=== PATIENT | male | born 1960 | race Hispanic/Latino ===

== ENCOUNTER 2017-11-29 09:36 | Inpatient (IN) | payer MEDICAID, OTHER ==
[2017-11-29] MEDS ORDERED: Vancomycin 1gm in NS 250ml 1 GM/250 ML BAG IVPB STA (10:27)
[2017-11-29] MEDS ORDERED: Piperacillin/Tazobact 3.375 gm 100 ML IVPB STA (10:27)
[2017-11-29] MEDS ORDERED: Sodium Chloride 0.9% 1,000 ML IV STA ×2 (10:28→12:15)
--- NOTE | 2017-11-29 10:31 | ED PDOC ---
Arrival/HPI - General Time Seen by Provider: 11/29/17 10:11 Historian: EMS - History of Present Illness Narrative History of Present Illness (Text): 11/29/17 10:31 57 year old male, unobtainable past medical history, presents to the Emergency department via EMS for altered mental status prior to arrival. Patient was last seen by brother a week ago. Patient appeared to be altered mental status and covered in feces upon arrival to the Emergency department. Patient appears to be cachectic and is a poor historian. History limited due to patient's altered mental status. Time/Duration: Prior to Arrival Symptom Onset: Gradual Symptom Course: Unchanged Activities at Onset: Light Context: Home Past Medical History - Provider Review Nursing Documentation Reviewed: Yes - Infectious Disease Hx of Infectious Diseases: None - Tetanus Immunization Tetanus Immunization: Unknown - Past Medical History Past Medical History: Unable to Obtain - Psychiatric Hx Depression: No Hx Emotional Abuse: No Hx Physical Abuse: No Hx Substance Use: (unable to obtain) - Past Surgical History Past Surgical History: Unable to Obtain - Suicidal Assessment Feels Threatened In Home Enviroment: No Family/Social History - Physician Review Nursing Documentation Reviewed: Yes Family/Social History: Unknown Family HX Hx Substance Use: (unable to obtain) Hx Substance Use Treatment: (unable to obtain) Allergies/Home Meds Allergies/Adverse Reactions: Allergies Unobtainable Allergy (Verified 11/29/17 19:43) Home Medications: Home Meds Medication Instructions Recorded Confirmed Unobtainable 03/12/13 11/29/17 Review of Systems - Physician Review All systems were reviewed & negative as marked: Yes - Review of Systems Systems not reviewed;Unavailable: Altered Mental Status Eyes: Normal ENT: Normal Respiratory: Normal. absent: SOB Musculoskeletal: Other (cachectic) Neurological: Other (altered mental status) Psychiatric: Other (Confused) Physical Exam Vital Signs Reviewed: Yes Vital Signs Temp Pulse Resp BP Pulse Ox 11/29/17 11:59 126 H 18 154/96 H 96 11/29/17 10:54 99.1 F 131 H 20 164/106 H 95 Temperature: Afebrile Blood Pressure: Hypertensive Pulse: Tachycardic Respiratory Rate: Normal Appearance: Positive for: Unkept (covered in feces ), Cachectic Pain Distress: Mild Mental Status: Positive for: other (Altered mental status) - Systems Exam Head: Present: Atraumatic, Normocephalic Pupils: Present: PERRL Extroacular Muscles: Present: EOMI Conjunctiva: Present: Normal Mouth: Present: Moist Mucous Membranes Neck: Present: Normal Range of Motion Respiratory/Chest: Present: Clear to Auscultation, Good Air Exchange. No: Respiratory Distress, Accessory Muscle Use Cardiovascular: Present: Regular Rate and Rhythm, Normal S1, S2. No: Murmurs Abdomen: Present: Normal Bowel Sounds. No: Tenderness, Distention, Peritoneal Signs Back: Present: Normal Inspection Upper Extremity: Present: Normal Inspection. No: Cyanosis, Edema Lower Extremity: Present: Normal Inspection. No: Edema Neurological: Present: GCS=15, CN II-XII Intact, Speech Normal Skin: Present: Warm, Dry, Other (marked erythema to right side hip with purulent discharge). No: Rashes Psychiatric: Present: Alert (but altered mental status) Medical Decision Making ED Course and Treatment: 11/29/17 10:41 Impression: 57 year old male presents to the Emergency department for AMS. Plan: cachectic -- VBG -- CT of Head -- EKG -- Labs -- Chest X-ray -- Zosyn -- Urinalysis -- Reassess and disposition Progress Notes: 11/29/17 11:07 EKG: Ordered, reviewed, and independently interpreted the EKG. Rate : 131 BPM Rhythm : Sinus Tachycardia. Interpretation : No ST-segment elevations or depressions, no T-wave inversions, normal intervals. 11/29/17 12:13 Code Sepsis called. 11/29/17 12:15 pt does not need 30 cc/ kg bous, hemodynamiccaly stable. 11/29/17 13:51 CT of head reviewed by radiologist, shows no evidence of acute intracranial hemorrhage mass effect or midline shift. Dilated ventricles out of proportion of mildly dilated sulci which may represent central atrophy versus hydrocephalus. Extensive diffuse white matter changes suggestive but nonspecific for chronic microvascular ischemic disease. The possibility of transependymal edema due to hydrocephalus is not totally excluded. 11/29/17 13:51 Chest X-ray reviewed by radiologist, shows no active pulmonary disease. - Critical Care Critical Care Minutes: 30 minutes - Lab Interpretations Lab Results: 11/29/17 11:20 11/29/17 10:57 Lab Results 11/29/17 11:20: WBC 17.0 H, RBC 5.83, Hgb 16.7, Hct 49.9, MCV 85.6, MCH 28.6, MCHC 33.5, RDW 14.4, Plt Count 360, MPV 9.5, Gran % 87.8 H, Lymph % (Auto) 6.0 L , Storey % (Auto) 5.9, Eos % (Auto) 0.1 L, Baso % (Auto) 0.2, Gran # 14.94 H, Lymph # (Auto) 1.0 L, Storey # (Auto) 1.0 H, Eos # (Auto) 0.0, Baso # (Auto) 0.03 11/29/17 10:57: Alcohol, Quantitative < 10 11/29/17 10:57: Salicylates < 1 L, Acetaminophen < 10.0 L 11/29/17 10:57: Sodium 144, Chloride 105, Potassium 4.0, Carbon Dioxide 22, Anion Gap 21 H, BUN 23 H, Creatinine 0.7 L, Est GFR ( Amer) > 60, Est GFR (Non-Af Amer) > 60, Random Glucose 503 H*, Calcium 9.9, Magnesium 2.2, Total Bilirubin 0.9, AST 34, ALT 39, Alkaline Phosphatase 143 H, Lactate Dehydrogenase 421, Total Creatine Kinase 31 L, Troponin I 0.01, Total Protein 7.5, Albumin 3.9, Globulin 3.6, Albumin/Globulin Ratio 1.1 11/29/17 10:57: PT 13.2 H, INR 1.14 H, APTT 35.3 11/29/17 10:57: pO2 64 H, VBG pH 7.43, VBG pCO2 34.0 L, VBG HCO3 22.6, VBG Total CO2 23.6, VBG O2 Sat (Calc) 93.0 H, VBG Base Excess -1.1 L, VBG Potassium 4.0, Sodium 142.0, Chloride 103.0, Glucose 511 H*, Lactate 2.8 H, FiO2 21.0, Venous Blood Potassium 4.0 - RAD Interpretation Radiology Orders: 11/29/17 10:25 CHEST PORTABLE [RAD] Stat 11/29/17 10:26 HEAD W/O CONTRAST [CT] Stat - Medication Orders Current Medication Orders: Acetaminophen (Tylenol 325mg Tab) 650 mg PO Q6H PRN PRN Reason: Fever >100.4 F Heparin Sodium (Porcine) (Heparin) 5,000 units SC Q12 YOLI PRN Reason: Protocol Last Admin: 11/30/17 10:18 Dose: 5,000 units Subcutaneous Administrations Document 11/30/17 10:18 RDS (Rec: 11/30/17 10:18 RDS [id number]) Charges for Administration # of Subcutaneous Administrations 1 Multivitamins/Vitamin C 10 ml/Thiamine HCl 100 mg/ Folic Acid 1 mg/ Sodium Chloride 1,011.2 mls @ 100 mls/hr IV .Q10H7M [facility] Last Admin: 11/30/17 01:08 Dose: 100 mls/hr eMAR Start Stop Document 11/30/17 01:08 AP (Rec: 11/30/17 01:08 AP [id number]) Intravenous Solution Start Date 11/30/17 Start Time 01:08 Vancomycin HCl (Vancomycin 1gm) 1 gm in 250 mls @ 167 mls/hr IVPB Q12H YOLI PRN Reason: Protocol Last Admin: 11/30/17 01:08 Dose: 167 mls/hr eMAR Start Stop Document 11/30/17 01:08 AP (Rec: 11/30/17 01:08 AP [id number]) Intravenous Solution Start Date 11/30/17 Start Time 01:08 Piperacillin Sod/Tazobactam Sod (Zosyn 3.375 In Ns 100ml) 100 mls @ 200 mls/hr IVPB Q6 YOLI PRN Reason: Protocol Stop: 12/04/17 18:01 Last Admin: 11/30/17 05:00 Dose: 200 mls/hr eMAR Start Stop Document 11/30/17 05:00 AP (Rec: 11/30/17 05:00 AP [id number]) Intravenous Solution Start Date 11/30/17 Start Time 05:00 Insulin Human Regular (Humulin R High) 0 units SC ACHS YOLI PRN Reason: Protocol Last Admin: 11/30/17 07:49 Dose: 7 units MAR Blood Glucose Document 11/30/17 07:49 RDS (Rec: 11/30/17 07:49 RDS [id number]) Blood Glucose Finger Stick Blood Glucose (70-120) 250 Subcutaneous Administrations Document 11/30/17 07:49 RDS (Rec: 11/30/17 07:49 RDS [id number]) Charges for Administration # of Subcutaneous Administrations 1 Lorazepam (Ativan) 1 mg IVP Q6H PRN; Protocol PRN Reason: Anxiety Last Admin: 11/29/17 17:07 Dose: 1 mg IVP Administration Document 11/29/17 17:07 (Rec: 11/29/17 17:07 [id number]) Charges for Administration # of IVP Administrations 1 Behavioural Document 11/29/17 17:07 (Rec: 11/29/17 17:07 [place] [id number]) Maintenance Maintenance Dose Yes Re-Assess: Reassess Psych Meds Document 11/29/17 17:37 (Rec: 11/29/17 18:54 [id number]) Reassess Psych Med Ineffective-LIP notifed Pantoprazole Sodium (Protonix Inj) 40 mg IVP DAILY [facility] Last Admin: 11/30/17 10:18 Dose: 40 mg IVP Administration Document 11/30/17 10:18 RDS (Rec: 11/30/17 10:18 RDS [place] [id number]) Charges for Administration # of IVP Administrations 1 Discontinued Medications Enalaprilat (Vasotec Iv) 1.25 mg IVP STAT STA Stop: 11/29/17 15:44 Last Admin: 11/29/17 17:07 Dose: 1.25 mg MAR Blood Pressure Document 11/29/17 17:07 (Rec: 11/29/17 17:08 [place] [id number]) Blood Pressure Blood Pressure (100/60-150/90) 167/105 IVP Administration Document 11/29/17 17:07 (Rec: 11/29/17 17:08 [place] [id number]) Charges for Administration # of IVP Administrations 1 Piperacillin Sod/Tazobactam Sod (Zosyn 3.375 In Ns 100ml) 100 mls @ 200 mls/hr IVPB STAT STA PRN Reason: Protocol Stop: 11/29/17 10:56 Last Admin: 11/29/17 11:33 Dose: 200 mls/hr eMAR Start Stop Document 11/29/17 11:33 EQ (Rec: 11/29/17 11:33 EQ [id number]) Intravenous Solution Start Date 11/29/17 Start Time 11:33 Vancomycin HCl (Vancomycin 1gm) 1 gm in 250 mls @ 167 mls/hr IVPB STAT STA PRN Reason: Protocol Stop: 11/29/17 11:56 Last Admin: 11/29/17 12:18 Dose: 167 mls/hr eMAR Start Stop Document 11/29/17 12:18 EQ (Rec: 11/29/17 12:18 EQ [id number]) Intravenous Solution Start Date 11/29/17 Start Time 12:18 Sodium Chloride (Sodium Chloride 0.9%) 1,000 mls @ 999 mls/hr IV .Q1H1M STA Stop: 11/29/17 11:28 Last Admin: 11/29/17 11:32 Dose: 999 mls/hr eMAR Start Stop Document 11/29/17 11:32 EQ (Rec: 11/29/17 11:33 EQ [id number]) Intravenous Solution Start Date 11/29/17 Start Time 11:32 Sodium Chloride (Sodium Chloride 0.9%) 1,000 mls @ 999 mls/hr IV .Q1H1M STA Stop: 11/29/17 13:15 Last Admin: 11/29/17 12:18 Dose: 999 mls/hr eMAR Start Stop Document 11/29/17 12:18 EQ (Rec: 11/29/17 12:18 EQ [id number]) Intravenous Solution Start Date 11/29/17 Start Time 12:18 Insulin Human Regular (Humulin R) 4 units SC STAT STA Stop: 11/29/17 14:29 Last Admin: 11/29/17 14:56 Dose: 4 units MAR Blood Glucose Document 11/29/17 14:56 EQ (Rec: 11/29/17 14:56 EQ [id number]) Blood Glucose Finger Stick Blood Glucose (70-120) 359 Subcutaneous Administrations Document 11/29/17 14:56 EQ (Rec: 11/29/17 14:56 EQ [id number]) Injection Site MAR Injection Site Right Deltoid Charges for Administration # of Subcutaneous Administrations 1 Lorazepam (Ativan) 2 mg IVP ONCE ONE PRN Reason: Protocol Stop: 11/29/17 18:55 Last Admin: 11/29/17 19:16 Dose: 2 mg IVP Administration Document 11/29/17 19:16 DH (Rec: 11/29/17 19:16 [id number]) Charges for Administration # of IVP Administrations 1 Behavioural Document 11/29/17 19:16 DH (Rec: 11/29/17 19:16 DH [id number]) Maintenance Maintenance Dose Yes Re-Assess: Reassess Psych Meds Document 11/29/17 19:46 AP (Rec: 11/29/17 22:41 AP [id number]) Reassess Psych Med Effective Pneumococcal Polyvalent Vaccine (Pneumovax 23 Vaccine) 0.5 ml IM .ONCE ONE Stop: 11/29/17 20:16 Last Admin: 11/29/17 20:49 Dose: Immunization Registry Document 11/29/17 20:49 AP (Rec: 11/29/17 20:49 AP [id number]) Immunization Registry Consent Date 11/29/17 - Scribe Statement The provider has reviewed the documentation as recorded by the Scribe Leslie Batista. All medical record entries made by the Scribe were at my direction and personally dictated by me. I have reviewed the chart and agree that the record accurately reflects my personal performance of the history, physical exam, medical decision making, and the department course for this patient. I have also personally directed, reviewed, and agree with the discharge instructions and disposition. Disposition/Present on Arrival - Present on Arrival Any Indicators Present on Arrival: No History of DVT/PE: No History of Uncontrolled Diabetes: No Urinary Catheter: No History Surgical Site Infection Following: None - Disposition Have Diagnosis and Disposition been Completed?: Yes Diagnosis: Sepsis, Altered mental status Disposition: HOSPITALIZED Disposition Time: 11:00 Patient Problems: Current Active Problems Problem Status Onset Altered mental status Acute Sepsis Acute Condition: FAIR
[2017-11-29 11:14] LABS: VENOUS BLOOD GAS BASE EXCESS -1.1 mmol/L (0.0-2.0); VENOUS BLOOD GAS PO2 64 mm/Hg (30-55); VENOUS BLOOD PH 7.43 (7.32-7.43)
[2017-11-29 11:25] LABS: ACETAMINOPHEN < 10.0 ug/ml (10.0-20.0); SALICYLATE < 1 mg/dL (2.0-20.0)
[2017-11-29 11:29] LABS: PROTHROMBIN TIME 13.2 SECONDS (9.4-12.5)
[2017-11-29 11:30] LABS: INR 1.14 (0.93-1.08); PARTIAL THROMBOPLASTIN TIME 35.3 Seconds (25.1-36.5)
[2017-11-29 11:33] LABS: ALB/GLOB RATIO 1.1 (1.1-1.8); ALBUMIN 3.9 g/dL (3.0-4.8); ALT/SGPT 39 U/L (7-56); AST/SGOT 34 U/L (17-59); BLOOD UREA NITROGEN 23 mg/dL (7-21); CALCIUM 9.9 mg/dL (8.4-10.5); GFR NON-AFRICAN AMERICAN > 60
[2017-11-29 11:36] LABS: TROPONIN I 0.01 ng/mL
[2017-11-29 12:06] LABS: BASO # 0.03 K/mm3 (0.0-2.0); BASO % 0.2 % (0.0-3.0); EOS % 0.1 % (1.5-5.0); GRAN # 14.94 (1.4-6.5); GRAN % 87.8 % (50.0-68.0); HEMOGLOBIN 16.7 g/dL (14.0-18.0); MEAN CELL VOLUME 85.6 fl (80.0-105.0); MEAN CORPUSCULAR HEMOGLOBIN 28.6 pg (25.0-35.0); MEAN CORPUSCULAR HGB CONC 33.5 g/dl (31.0-37.0); MEAN PLATELET VOLUME 9.5 fl (7.0-11.0); MONO % 5.9 % (1.0-6.0); RBC 5.83 10^6/uL (3.5-6.1); RED CELL DISTRIBUTION WIDTH 14.4 % (11.5-14.5)
--- NOTE | 2017-11-29 12:19 | CT ---
PROCEDURE: CT HEAD WITHOUT CONTRAST. HISTORY: ams COMPARISON: None available. TECHNIQUE: Axial computed tomography images were obtained through the head/brain without intravenous contrast. Radiation dose: Total exam DLP = 884.42 mGy-cm. This CT exam was performed using one or more of the following dose reduction techniques: Automated exposure control, adjustment of the mA and/or kV according to patient size, and/or use of iterative reconstruction technique. FINDINGS: HEMORRHAGE: No intracranial hemorrhage. BRAIN: No mass effect or edema. Moderate atrophy is noted. There are diffuse white matter hypodensity noted suggestive but nonspecific for chronic microvascular ischemic disease. VENTRICLES: The ventricles are dilated out of proportion of the sulci which may represent central atrophy versus hydrocephalus. . CALVARIUM: Unremarkable. PARANASAL SINUSES: Unremarkable as visualized. No significant inflammatory changes. MASTOID AIR CELLS: Unremarkable as visualized. No inflammatory changes. OTHER FINDINGS: None. IMPRESSION: No evidence of acute intracranial hemorrhage mass effect or midline shift. Dilated ventricles out of proportion of mildly dilated sulci which may represent central atrophy versus hydrocephalus. Extensive diffuse white matter changes suggestive but nonspecific for chronic microvascular ischemic disease. The possibility of transependymal edema due to hydrocephalus is not totally excluded.
--- NOTE | 2017-11-29 14:03 | RAD ---
HISTORY: code sepsis COMPARISON: No prior. FINDINGS: LUNGS: The lungs are well inflated and clear. PLEURA: No significant pleural effusion identified, no pneumothorax apparent. CARDIOVASCULAR: Normal. OSSEOUS STRUCTURES: Within normal limits for the patient's age. VISUALIZED UPPER ABDOMEN: Normal. OTHER FINDINGS: None. IMPRESSION: No active pulmonary disease.
[2017-11-29] MEDS: Vancomycin 1gm in NS 250ml 1 GM/250 ML BAG IVPB SCH (14:12)
[2017-11-29] MEDS ORDERED: Insulin Regular 1 UNITS/0.01 ML ML SC STA (14:28)
--- NOTE | 2017-11-29 14:32 | CP.PCM.HP ---
<Ryan White - Last Filed: 11/29/17 14:28> History of Present Illness - History of Present Illness History of Present Illness: Mr. Montano is a 57 year old male with an unknown past medical history who was brought in by ambulance after being found with an AMS and covered in feces in his apartment. Patient is currently awake and oriented to person but not to place, time, or event. Patient is uncooperative with HPI questioning and ROS was unobtainable. According to EMS, patients brother called ambulance and reports that patient lives with his brother who had not seen him for a week. He became concerned and walked in to find patient covered in feces and confused. Attempts to reach brother were unsuccessful as the contact number in the chart was no longer in service. Present on Admission - Present on Admission Any Indicators Present on Admission: No Review of Systems - Review of Systems Systems not reviewed;Unavailable: Altered Mental Status, Uncooperative Past Patient History - Infectious Disease Hx of Infectious Diseases: None - Tetanus Immunizations Tetanus Immunization: Unknown - Past Social History Smoking Status: Unknown If Ever Smoked - PSYCHIATRIC Hx Depression: No Hx Emotional Abuse: No Hx Physical Abuse: No Hx Substance Use: (unable to obtain) Meds Allergies/Adverse Reactions: Allergies Allergy/AdvReac Type Severity Reaction Status Date / Time Unobtainable Allergy Verified 11/29/17 11:00 Physical Exam - Constitutional Appears: Unkempt, Confused - Head Exam Head Exam: ATRAUMATIC, NORMOCEPHALIC - Eye Exam Eye Exam: EOMI, Normal appearance, PERRL - Neck Exam Neck exam: Positive for: Full Rom, Normal Inspection. Negative for: Lymphadenopathy, Meningismus - Respiratory Exam Respiratory Exam: Clear to Auscultation Bilateral, NORMAL BREATHING PATTERN. absent: Accessory Muscle Use, Chest Wall Tenderness, Decreased Breath Sounds, Prolonged Expiratory Phase, Rales, Rhonchi, Wheezes, Respiratory Distress, Stridor - Cardiovascular Exam Cardiovascular Exam: Tachycardia, REGULAR RHYTHM, +S1, +S2. absent: Irregular Rhythm - GI/Abdominal Exam GI & Abdominal Exam: Normal Bowel Sounds, Soft. absent: Tenderness - Extremities Exam Extremities exam: Positive for: pedal pulses present. Negative for: calf tenderness, joint swelling, pedal edema Additional comments: Erythematous rash with skin sloughing and various areas of purulent discharge extending from right lateral thigh posteriorly to gluteus region and anal cleft - Neurological Exam Neurological exam: Altered - Skin Skin Exam: Rash (See above extremity exam) Results - Vital Signs Recent Vital Signs: Last Vital Signs Temp 99.1 F 11/29/17 10:54 Pulse 126 H 11/29/17 11:59 Resp 18 11/29/17 11:59 BP 154/96 H 11/29/17 11:59 Pulse Ox 96 11/29/17 11:59 - Labs Result Diagrams: 11/29/17 11:20 11/29/17 10:57 - EKG Data EKG Interpreted by: Other EKG shows normal: Sinus rhythm Rate: Tachycardia Assessment & Plan - Assessment and Plan (Free Text) Assessment: 57 year old male with an unknown past medical history who was brought in by ambulance after being found with an AMS and covered in feces in his apartment. Patient is currently awake and oriented to person but not to place, time, or event. Patient is uncooperative with HPI questioning and ROS was unobtainable. In the ED, patient was found to have leukocytosis, tachycardia and elevated lactic acid for which a code sepsis was called. He was started on IV Vancomycin and Zosyn as well as given two one liter boluses of normal saline. A blood glucose was found to be elevated at 503. A CT Head showed findings suspicious for hydrocephalus but no acute intracranial hemorrhage. A Chest X-Ray showed no active disease. Plan: 1. AMS -CT Head showed finding suspicious for hydrocephalus and no acute intracranial hemorrhage -Chest X-Ray showing no active disease -EKG showing sinus tachycardia -Tylenol, ASA and Alcohol levels within normal limits -Initial troponin negative, serial troponins pending -UDS and Ammonia level pending -Ativan 1mg IVP Q6H PRN -Banana Bag at 100mls/hr -CIWA Assessments -Fall, Seizure and Aspiration precautions -Neurology consulted, all recommendations 2. Sepsis with Suspected Cellulitis Source -Patient noted to have leukocytosis, tachycardia, lactic acidosis and cellulitis -Right Hip X-Ray pending -Blood and wound cultures pending -IV Vancomycin and Zosyn for empiric coverage -Tylenol PRN for fever -Wound Care referral -ID consulted, all recommendations appreciated 3. Hyperglycemia -SSI-High and Accuchecks ACHS -Carb Consistent Diet -A1c pending GI Prophylaxis: Protonix DVT Prophylaxis: Heparin and SCD's Patient seen and case discussed with attending, Dr. Galo. - Date & Time Date: 11/29/17 Time: 14:39 Decision To Admit - Pt Status Changed To: Hospital Disposition Of: Inpatient Admission - Admit Certification Admit to Inpatient:: After my assessment, the patient will require hospitalization for at least two midnights. This is because of the severity of symptoms shown, intensity of services needed, and/or the medical risk in this patient being treated as an outpatient. - . Bed Request Type: Telemetry <Sixto Galo - Last Filed: 11/29/17 16:11> Results - Vital Signs Recent Vital Signs: Last Vital Signs Temp 98.3 F 11/29/17 15:46 Pulse 117 H 11/29/17 15:46 Resp 18 11/29/17 15:46 BP 167/105 H 11/29/17 15:46 Pulse Ox 92 L 11/29/17 15:46 - Labs Result Diagrams: 11/29/17 11:20 11/29/17 10:57 Labs: Laboratory Results - last 24 hr 11/29/17 11/29/17 11/29/17 14:20 14:20 14:20 pO2 82 H VBG pH 7.42 VBG pCO2 36.0 L VBG HCO3 23.4 VBG Total CO2 24.5 VBG O2 Sat (Calc) 96.0 H VBG Base Excess -0.7 L VBG Potassium 4.0 Sodium 143.0 Chloride 108.0 H Glucose 468 H* Lactate 1.9 FiO2 21.0 POC Glucose (mg/dL) Ammonia < 9 L Lactate Dehydrogenase 499 Total Creatine Kinase 36 Troponin I 0.02 D Venous Blood Potassium 4.0 11/29/17 14:27 pO2 VBG pH VBG pCO2 VBG HCO3 VBG Total CO2 VBG O2 Sat (Calc) VBG Base Excess VBG Potassium Sodium Chloride Glucose Lactate FiO2 POC Glucose (mg/dL) 359 H Ammonia Lactate Dehydrogenase Total Creatine Kinase Troponin I Venous Blood Potassium Attending/Attestation - Attestation I have personally seen and examined this patient.: Yes I have fully participated in the care of the patient.: Yes I have reviewed all pertinent clinical information: Yes Notes (Text): 11/29/17 16:07 57 year old male with past medical history of ETOH abuse who presents today with altered mental status, hyperglycemia and RLE cellulitis. CT head reviewed as above with ?hydrocephalus. Neurology evaluation is requested. Alcohol level was negative. Urine drug screen is ordered. Can start banana bag and ativan prn in case of withdrawal symptoms. Agree with iv antibiotics for RLE cellulitis. ID evaluation is also requested. Will follow up on cultures. Continue with insulin ss for diabetes. A1c level is ordered. Will monitor. Sixto Galo MD Hospitalist.
[2017-11-29 14:35] LABS: VENOUS BLOOD GAS BASE EXCESS -0.7 mmol/L (0.0-2.0); VENOUS BLOOD GAS PO2 82 mm/Hg (30-55); VENOUS BLOOD PH 7.42 (7.32-7.43)
[2017-11-29 14:57] LABS: TROPONIN I 0.02 ng/mL
--- NOTE | 2017-11-29 14:57 | CARD ---
APPROVED REPORT EKG Measurement Heart [id number] <Conclusion> Sinus tachycardia Possible Left atrial enlargement ST & T wave abnormalit c/w ischemia Q in lll Prolonged QTc
[2017-11-29] MEDS ORDERED: EnalaprilAT 1.25 mg/ml Inj IVP STA (15:43)
--- NOTE | 2017-11-29 16:45 | PCM.SEPTIC ---
Sepsis Progress Note - Reassessment Type Date of Evaluation: 11/29/17 Time of Evaluation: 16:43 Reassessment Type: Non-invasive reassessment - Non Invasive Reassessment Were the most recent vital sign reviewed: Yes Vital Sign (Latest): Temp Pulse Resp BP Pulse Ox 98.3 F 117 H 18 167/105 H 92 L 11/29/17 15:46 11/29/17 15:46 11/29/17 15:46 11/29/17 15:46 11/29/17 15:46 Cardiovascular: Yes: Tachycardia Respiratory: Yes: Normal Breath Sounds Capillary Refill: Normal (Less than 2 sec) Skin: Rash
[2017-11-29] MEDS: Insulin Reg-HIGH-Coverage SC SCH ×2 (17:08→22:41)
[2017-11-29] MEDS: Multivitamin (MVI) 10 ML, Thiamine 100 MG, Folic Acid 1 MG in Sodium Chloride 0.9% 1,00... IV SCH (17:09)
[2017-11-29 20:15] VITALS: BMI 19.3
[2017-11-29] MEDS ORDERED: Influenza Vaccine 60 mcg/0.5 mL SYR (4YR UP) IM ONE (20:15)
[2017-11-29] MEDS ORDERED: Pneumococcal 23-Valent Vaccine IM ONE (20:15)
[2017-11-29] MEDS: Piperacillin/Tazobact 3.375 gm 100 ML IVPB SCH (23:06)
[2017-11-30] MEDS: Multivitamin (MVI) 10 ML, Thiamine 100 MG, Folic Acid 1 MG in Sodium Chloride 0.9% 1,00... IV SCH ×3 (01:08→14:30)
[2017-11-30] MEDS: Vancomycin 1gm in NS 250ml 1 GM/250 ML BAG IVPB SCH ×2 (01:08→14:04)
[2017-11-30 02:35] LABS: TROPONIN I 0.02 ng/mL
[2017-11-30] MEDS: Piperacillin/Tazobact 3.375 gm 100 ML IVPB SCH ×4 (05:00→23:41)
[2017-11-30 06:40] LABS: BASO # 0.02 K/mm3 (0.0-2.0); BASO % 0.2 % (0.0-3.0); EOS % 0.1 % (1.5-5.0); GRAN # 9.2 (1.4-6.5); GRAN % 78.9 % (50.0-68.0); HEMOGLOBIN 14.2 g/dL (14.0-18.0); LYMPH # 1.8 (1.2-3.4); LYMPH % 15.2 % (22.0-35.0); MEAN CELL VOLUME 86.1 fl (80.0-105.0); MEAN CORPUSCULAR HEMOGLOBIN 27.7 pg (25.0-35.0); MEAN CORPUSCULAR HGB CONC 32.2 g/dl (31.0-37.0); MEAN PLATELET VOLUME 9.4 fl (7.0-11.0); MONO # 0.7 (0.1-0.6); MONO % 5.6 % (1.0-6.0); RBC 5.12 10^6/uL (3.5-6.1); RED CELL DISTRIBUTION WIDTH 14.6 % (11.5-14.5); WHITE BLOOD COUNT 11.7 10^3/ul (4.5-11.0)
[2017-11-30 07:23] LABS: ALB/GLOB RATIO 1.1 (1.1-1.8); ALBUMIN 3.2 g/dL (3.0-4.8); ALT/SGPT 36 U/L (7-56); AST/SGOT 33 U/L (17-59); BLOOD UREA NITROGEN 19 mg/dL (7-21); CALCIUM 9.3 mg/dL (8.4-10.5); GFR NON-AFRICAN AMERICAN > 60; HDL CHOLESTEROL 31 mg/dL (29-60); LDL CHOLESTEROL 121 mg/dL (0-129)
[2017-11-30] MEDS: Insulin Reg-HIGH-Coverage SC SCH ×4 (07:49→21:43)
--- NOTE | 2017-11-30 11:42 | CP.PCM.CON ---
History of Present Illness - History of Present Illness History of Present Illness: Neurology Consult Note: 57 year old male with mostly unknown past medical history with presumed ETOH abuse presents to the hospital brought in by ambulance for AMS. HPI taken mainly from prior notes and nursing staff. Patient supposedly lives at home with his brother, however his brother had not seen him for a week only to find him in his apartment confused and covered in feces. At this point EMS was called and patient was brought to the hospital. Contact number for patient brother in the EMR is no longer in service. 12 Point ROS unobtainable due to patients AMS Review of Systems - Review of Systems Systems not reviewed;Unavailable: Altered Mental Status Past Patient History - Infectious Disease Hx of Infectious Diseases: None - Tetanus Immunizations Tetanus Immunization: Unknown - Past Social History Smoking Status: Unknown If Ever Smoked - CARDIAC Hx Cardiac Disorders: (UNKNOWN) - PULMONARY Hx Respiratory Disorders: (UNKNOWN) - NEUROLOGICAL Hx Neurological Disorder: No (UNKNOWN) - HEENT Hx HEENT Problems: No (UNKNOWN) - RENAL Hx Chronic Kidney Disease: No (UNKNOWN) - ENDOCRINE/METABOLIC Hx Endocrine Disorders: No (UNKNOWN) - HEMATOLOGICAL/ONCOLOGICAL Hx Blood Disorders: No (UNKNOWN) - INTEGUMENTARY Hx Dermatological Problems: Yes Other/Comment: 11-29-17 ERYTHEMATOUS RASH WITH SKIN SLOUGHED IN VARIOUS AREAS. EXTENDING TO RIGHT THIGH.BILATERAL GROIN AREA AND BILATERAL BUTTOCKS AND SACRAL AREA WITH IASD. INFLAMED SKIN RED. BILATERAL LE WITH NUMEROUS DRY SCABBED WOUND.BILATERAL KNEE ABRASION. - MUSCULOSKELETAL/RHEUMATOLOGICAL Hx Musculoskeletal Disorders: Yes Hx Falls: Yes - GASTROINTESTINAL Hx Gastrointestinal Disorders: No - GENITOURINARY/GYNECOLOGICAL Hx Genitourinary Disorders: Yes Hx Incontinence: Yes - PSYCHIATRIC Hx Depression: No Hx Emotional Abuse: No Hx Physical Abuse: No Hx Substance Use: (unable to obtain) - SURGICAL HISTORY Hx Surgeries: No (UNKNOWN) Meds Allergies/Adverse Reactions: Allergies Allergy/AdvReac Type Severity Reaction Status Date / Time Unobtainable Allergy Verified 11/29/17 19:43 - Medications Medications: Current Medications Acetaminophen (Tylenol 325mg Tab) 650 mg PO Q6H PRN PRN Reason: Fever >100.4 F Clotrimazole (Lotrimin Af 1%) 0 ml TOP BID [facility]OLI Heparin Sodium (Porcine) (Heparin) 5,000 units SC Q12 [facility]OLI PRN Reason: Protocol Last Admin: 11/30/17 10:18 Dose: 5,000 units Multivitamins/Vitamin C 10 ml/Thiamine HCl 100 mg/ Folic Acid 1 mg/ Sodium Chloride 1,011.2 mls @ 100 mls/hr IV .Q10H7M [facility] Last Admin: 11/30/17 01:08 Dose: 100 mls/hr Vancomycin HCl (Vancomycin 1gm) 1 gm in 250 mls @ 167 mls/hr IVPB Q12H [facility]OLI PRN Reason: Protocol Last Admin: 11/30/17 01:08 Dose: 167 mls/hr Piperacillin Sod/Tazobactam Sod (Zosyn 3.375 In Ns 100ml) 100 mls @ 200 mls/hr IVPB Q6 YOLI PRN Reason: Protocol Stop: 12/04/17 18:01 Last Admin: 11/30/17 05:00 Dose: 200 mls/hr Insulin Detemir (Levemir) 10 unit SC HS YOLI Insulin Human Regular (Humulin R High) 0 units SC ACHS YOLI PRN Reason: Protocol Last Admin: 11/30/17 07:49 Dose: 7 units Lorazepam (Ativan) 1 mg IVP Q6H PRN; Protocol PRN Reason: Anxiety Last Admin: 11/29/17 17:07 Dose: 1 mg Pantoprazole Sodium (Protonix Inj) 40 mg IVP DAILY [facility] Last Admin: 11/30/17 10:18 Dose: 40 mg Physical Exam - Constitutional Appears: No Acute Distress - Head Exam Head Exam: ATRAUMATIC, NORMOCEPHALIC - Eye Exam Eye Exam: EOMI Pupil Exam: NORMAL ACCOMODATION - ENT Exam ENT Exam: Mucous Membranes Moist - Respiratory Exam Respiratory Exam: Clear to Auscultation Bilateral. absent: Rales, Wheezes - Cardiovascular Exam Cardiovascular Exam: Tachycardia, +S1, +S2 - GI/Abdominal Exam GI & Abdominal Exam: Normal Bowel Sounds, Soft. absent: Distended, Tenderness - Extremities Exam Extremities exam: Negative for: calf tenderness, pedal edema - Neurological Exam Neurological exam: Altered - Skin Skin Exam: Dry, Intact Additional comments: Erythematous rash right lateral thigh posteriorly to gluteus region Results - Vital Signs Recent Vital Signs: Last Vital Signs Temp 97.8 F 11/30/17 05:50 Pulse 113 H 11/30/17 10:00 Resp 20 11/30/17 05:50 BP 138/78 11/30/17 05:50 Pulse Ox 92 L 11/30/17 05:50 - Labs Result Diagrams: 11/30/17 05:30 11/30/17 05:30 Labs: Laboratory Results - last 24 hr 11/29/17 11/29/17 11/29/17 14:20 14:20 14:20 WBC RBC Hgb Hct MCV MCH MCHC RDW Plt Count MPV Gran % Lymph % (Auto) [place] % (Auto) Eos % (Auto) Baso % (Auto) Gran # Lymph # (Auto) [place] # (Auto) Eos # (Auto) Baso # (Auto) ESR APTT pO2 VBG pH VBG pCO2 VBG HCO3 VBG Total CO2 VBG O2 Sat (Calc) VBG Base Excess VBG Potassium Sodium Chloride Glucose Lactate FiO2 Potassium Carbon Dioxide Anion Gap BUN Creatinine Est GFR ( Amer) Est GFR (Non-Af Amer) POC Glucose (mg/dL) Random Glucose Hemoglobin A1c 11.2 H Calcium Total Bilirubin AST ALT Alkaline Phosphatase Ammonia < 9 L Lactate Dehydrogenase 499 Total Creatine Kinase 36 Troponin I 0.02 D Total Protein Albumin Globulin Albumin/Globulin Ratio Triglycerides Cholesterol LDL Cholesterol Direct HDL Cholesterol Venous Blood Potassium 11/29/17 11/29/17 11/29/17 14:20 14:27 16:00 WBC RBC Hgb Hct MCV MCH MCHC RDW Plt Count MPV Gran % Lymph % (Auto) [place] % (Auto) Eos % (Auto) Baso % (Auto) Gran # Lymph # (Auto) [place] # (Auto) Eos # (Auto) Baso # (Auto) ESR APTT pO2 82 H VBG pH 7.42 VBG pCO2 36.0 L VBG HCO3 23.4 VBG Total CO2 24.5 VBG O2 Sat (Calc) 96.0 H VBG Base Excess -0.7 L VBG Potassium 4.0 Sodium 143.0 Chloride 108.0 H Glucose 468 H* Lactate 1.9 FiO2 21.0 Potassium Carbon Dioxide Anion Gap BUN Creatinine Est GFR ( Amer) Est GFR (Non-Af Amer) POC Glucose (mg/dL) 359 H 397 H Random Glucose Hemoglobin A1c Calcium Total Bilirubin AST ALT Alkaline Phosphatase Ammonia Lactate Dehydrogenase Total Creatine Kinase Troponin I Total Protein Albumin Globulin Albumin/Globulin Ratio Triglycerides Cholesterol LDL Cholesterol Direct HDL Cholesterol Venous Blood Potassium 4.0 0211/30/17 11/30/17 01:40 05:30 05:30 WBC 11.7 H D RBC 5.12 Hgb 14.2 D Hct 44.1 MCV 86.1 MCH 27.7 MCHC 32.2 RDW 14.6 H Plt Count 316 MPV 9.4 Gran % 78.9 H Lymph % (Auto) 15.2 L [place] % (Auto) 5.6 Eos % (Auto) 0.1 L Baso % (Auto) 0.2 Gran # 9.20 H Lymph # (Auto) 1.8 [place] # (Auto) 0.7 H Eos # (Auto) 0.0 Baso # (Auto) 0.02 ESR 45 H APTT pO2 VBG pH VBG pCO2 VBG HCO3 VBG Total CO2 VBG O2 Sat (Calc) VBG Base Excess VBG Potassium Sodium 147 Chloride 112 H Glucose Lactate FiO2 Potassium 3.6 Carbon Dioxide 23 Anion Gap 16 BUN 19 Creatinine 0.5 L Est GFR ( Amer) > 60 Est GFR (Non-Af Amer) > 60 POC Glucose (mg/dL) Random Glucose 280 H Hemoglobin A1c Calcium 9.3 Total Bilirubin 0.8 AST 33 ALT 36 Alkaline Phosphatase 98 Ammonia Lactate Dehydrogenase 324 L Total Creatine Kinase 23 L Troponin I 0.02 Total Protein 6.2 Albumin 3.2 Globulin 3.0 Albumin/Globulin Ratio 1.1 Triglycerides 140 Cholesterol 174 LDL Cholesterol Direct 121 HDL Cholesterol 31 Venous Blood Potassium 11/30/17 11/30/17 11/30/17 05:30 07:33 11:16 WBC RBC Hgb Hct MCV MCH MCHC RDW Plt Count MPV Gran % Lymph % (Auto) [place] % (Auto) Eos % (Auto) Baso % (Auto) Gran # Lymph # (Auto) [place] # (Auto) Eos # (Auto) Baso # (Auto) ESR APTT 28.3 pO2 VBG pH VBG pCO2 VBG HCO3 VBG Total CO2 VBG O2 Sat (Calc) VBG Base Excess VBG Potassium Sodium Chloride Glucose Lactate FiO2 Potassium Carbon Dioxide Anion Gap BUN Creatinine Est GFR ( Amer) Est GFR (Non-Af Amer) POC Glucose (mg/dL) 250 H 279 H Random Glucose Hemoglobin A1c Calcium Total Bilirubin AST ALT Alkaline Phosphatase Ammonia Lactate Dehydrogenase Total Creatine Kinase Troponin I Total Protein Albumin Globulin Albumin/Globulin Ratio Triglycerides Cholesterol LDL Cholesterol Direct HDL Cholesterol Venous Blood Potassium Assessment & Plan - Assessment and Plan (Free Text) Assessment: 57 year old male with mostly unknown past medical history with presumed ETOH abuse presents to the hospital brought in by ambulance for AMS. On admission patient found to have wbc of 17.1, lactate of 2. 8, and hyperglycemic to 503. Patient AMS likely 2/2 toxic metabolic encephalopathy and likely acute on chronic hydrocephalus. Plan: - CT head:negative for intarcranial hemmorhage, dilated ventricles which may represent central atrophy vs hydrocephalus, with possible transepedymal edema due to hydrocephalus. - MRI of brain with & w/o contrast ordered - EEG ordered to rule out any seizure, seizure precautions - Antibiotics as per ID - Glycemic control with blood sugars 140-180 Case and plan was reviewed and discussed in detail with Dr Nevarez.
[2017-11-30] MEDS: Clotrimazole 1% Top Soln(10 ml) TOP SCH ×2 (14:04→17:45)
--- NOTE | 2017-11-30 15:05 | CP.PCM.PN ---
<Ryan White - Last Filed: 11/30/17 14:57> Subjective - Date & Time of Evaluation Date of Evaluation: 11/30/17 Time of Evaluation: 14:58 - Subjective Subjective: Medicine Progress Note: Patient seen and assessed at bedside. No acute events noted overnight by nursing staff. Patient unresponsive to HPI questioning. ROS unavailable for this reason. Objective - Vital Signs/Intake and Output Vital Signs (last 24 hours): Temp Pulse Resp BP Pulse Ox 98.7 F 101 H 18 154/97 H 92 L 11/30/17 12:00 11/30/17 12:00 11/30/17 12:00 11/30/17 12:00 11/30/17 05:50 Intake and Output: 11/30/17 11/30/17 06:59 18:59 Intake Total 1940 Balance 1940 - Medications Medications: Current Medications Acetaminophen (Tylenol 325mg Tab) 650 mg PO Q6H PRN PRN Reason: Fever >100.4 F Clotrimazole (Lotrimin Af 1%) 0 ml TOP BID [facility] Last Admin: 11/30/17 14:04 Dose: 1 applic Heparin Sodium (Porcine) (Heparin) 5,000 units SC Q12 YOLI PRN Reason: Protocol Last Admin: 11/30/17 10:18 Dose: 5,000 units Multivitamins/Vitamin C 10 ml/Thiamine HCl 100 mg/ Folic Acid 1 mg/ Sodium Chloride 1,011.2 mls @ 100 mls/hr IV .Q10H7M [facility] [place] Last Admin: 11/30/17 14:30 Dose: 100 mls/hr Vancomycin HCl (Vancomycin 1gm) 1 gm in 250 mls @ 167 mls/hr IVPB Q12H [facility]OLI PRN Reason: Protocol Last Admin: 11/30/17 14:04 Dose: 167 mls/hr Piperacillin Sod/Tazobactam Sod (Zosyn 3.375 In Ns 100ml) 100 mls @ 200 mls/hr IVPB Q6 YOLI PRN Reason: Protocol Stop: 12/04/17 18:01 Last Admin: 11/30/17 12:08 Dose: 200 mls/hr Insulin Detemir (Levemir) 10 unit SC HS YOLI Insulin Human Regular (Humulin R High) 0 units SC ACHS YOLI PRN Reason: Protocol Last Admin: 11/30/17 12:08 Dose: 7 units Lorazepam (Ativan) 1 mg IVP Q6H PRN; Protocol PRN Reason: Anxiety Last Admin: 11/29/17 17:07 Dose: 1 mg Pantoprazole Sodium (Protonix Inj) 40 mg IVP DAILY [facility]I Last Admin: 11/30/17 10:18 Dose: 40 mg - Labs Labs: 11/30/17 05:30 11/30/17 05:30 PT 13.2 SECONDS (9.4-12.5) H 11/29/17 10:57 INR 1.14 (0.93-1.08) H 11/29/17 10:57 APTT 28.3 Seconds (25.1-36.5) 11/30/17 05:30 - Constitutional Appears: Non-toxic, No Acute Distress, Confused - Head Exam Head Exam: ATRAUMATIC, NORMAL INSPECTION, NORMOCEPHALIC - Eye Exam Eye Exam: EOMI, Normal appearance, PERRL - ENT Exam ENT Exam: Mucous Membranes Moist, Normal Exam - Neck Exam Neck Exam: Full ROM, Normal Inspection. absent: Lymphadenopathy - Respiratory Exam Respiratory Exam: Clear to Ausculation Bilateral, NORMAL BREATHING PATTERN. absent: Accessory Muscle Use, Chest Wall Tenderness, Decreased Breath Sounds, Prolonged Expiratory Phase, Rales, Rhonchi, Wheezes, Respiratory Distress, Stridor - Cardiovascular Exam Cardiovascular Exam: Tachycardia, REGULAR RHYTHM, +S1, +S2. absent: Bradycardia , Clicks, Diastolic murmur, Gallop, Irregular Rhythm, JVD, RRR, Rubs, +S4, Murmur - GI/Abdominal Exam GI & Abdominal Exam: Soft, Normal Bowel Sounds. absent: Bruit, Distended, Firm , Guarding, Rigid, Tenderness, Diminished Bowel Sounds, Hernia, Hyperactive Bowel Sounds, Hypoactive Bowel Sounds, Organomegaly, Pulsatile Mass, Rebound, Mass - Extremities Exam Extremities Exam: Normal Capillary Refill. absent: Calf Tenderness, Joint Swelling, Pedal Edema Additional comments: Erythematous rash with skin sloughing and various areas of purulent discharge extending from right lateral thigh posteriorly to right gluteus region and anal cleft - Back Exam Back Exam: NORMAL INSPECTION - Neurological Exam Neurological Exam: Altered, Awake - Skin Skin Exam: Dry, Intact, Normal Color, Warm Additional comments: See extremities exam Assessment and Plan - Assessment and Plan (Free Text) Assessment: 57 year old male with an unknown past medical history who was brought in by ambulance after being found with an AMS and covered in feces in his apartment. Patient is currently awake and oriented to person but not to place, time, or event. Patient is uncooperative with HPI questioning and ROS was unobtainable. In the ED, patient was found to have leukocytosis, tachycardia and elevated lactic acid for which a code sepsis was called. He was started on IV Vancomycin and Zosyn as well as given two one liter boluses of normal saline. A blood glucose was found to be elevated at 503. A CT Head showed findings suspicious for hydrocephalus but no acute intracranial hemorrhage. A Chest X-Ray showed no active disease. Patient currently growing gram positive cocci in blood culture. Plan: 1. AMS -CT Head showed finding suspicious for hydrocephalus and no acute intracranial hemorrhage -Chest X-Ray showing no active disease -EKG showing sinus tachycardia -Ammonia, Tylenol, ASA and Alcohol levels within normal limits -Serial troponins negative -MRI Brain, EEG and UDS pending -Ativan 1mg IVP Q6H PRN -Banana Bag at 100mls/hr -CIWA Assessments -Fall, Seizure and Aspiration precautions -Neurology consulted, all recommendations 2. Sepsis with Suspected Cellulitis Source -Leukocytosis improving from 17.0 to 11.2 -Noted to have tachycardia but is afebrile and without tachypnea -Right Hip X-Ray pending radiologist interpretation -Blood cultures growing gram positive cocci, repeat blood cultures with no growth after 24 hours -Continue IV Vancomycin and Zosyn for empiric coverage -Tylenol PRN for fever -Started Lotrimin AF Ointment PRN -Wound Care referral -ID consulted, all recommendations appreciated 3. Hyperglycemia -SSI-High and Accuchecks ACHS -Started Levemir 10u HS -Carb Consistent Diet -A1c 11.2, representing an average blood glucose measurement of 275 GI Prophylaxis: Protonix DVT Prophylaxis: Heparin and SCD's Patient seen and case discussed with attending, Dr. Galo. <Sixto Galo - Last Filed: 11/30/17 16:33> Objective - Vital Signs/Intake and Output Vital Signs (last 24 hours): Temp Pulse Resp BP Pulse Ox 98.7 F 102 H 18 154/97 H 92 L 11/30/17 12:00 11/30/17 14:00 11/30/17 12:00 11/30/17 12:00 11/30/17 05:50 Intake and Output: 11/30/17 11/30/17 06:59 18:59 Intake Total 1939 Balance 1939 - Medications Medications: Current Medications Acetaminophen (Tylenol 325mg Tab) 650 mg PO Q6H PRN PRN Reason: Fever >100.4 F Clotrimazole (Lotrimin Af 1%) 0 ml TOP BID [facility] [place] Last Admin: 11/30/17 14:04 Dose: 1 applic Heparin Sodium (Porcine) (Heparin) 5,000 units SC Q12 YOLI PRN Reason: Protocol Last Admin: 11/30/17 10:18 Dose: 5,000 units Multivitamins/Vitamin C 10 ml/Thiamine HCl 100 mg/ Folic Acid 1 mg/ Sodium Chloride 1,011.2 mls @ 100 mls/hr IV .Q10H7M [facility] [place] Last Admin: 11/30/17 14:30 Dose: 100 mls/hr Vancomycin HCl (Vancomycin 1gm) 1 gm in 250 mls @ 167 mls/hr IVPB Q12H YOLI PRN Reason: Protocol Last Admin: 11/30/17 14:04 Dose: 167 mls/hr Piperacillin Sod/Tazobactam Sod (Zosyn 3.375 In Ns 100ml) 100 mls @ 200 mls/hr IVPB Q6 YOLI PRN Reason: Protocol Stop: 12/04/17 18:01 Last Admin: 11/30/17 12:08 Dose: 200 mls/hr Insulin Detemir (Levemir) 10 unit SC HS [facility] Insulin Human Regular (Humulin R High) 0 units SC ACHS [facility] PRN Reason: Protocol Last Admin: 11/30/17 12:08 Dose: 7 units Lorazepam (Ativan) 1 mg IVP Q6H PRN; Protocol PRN Reason: Anxiety Last Admin: 11/29/17 17:07 Dose: 1 mg Pantoprazole Sodium (Protonix Inj) 40 mg IVP DAILY [facility] [place] Last Admin: 11/30/17 10:18 Dose: 40 mg - Labs Labs: 11/30/17 05:30 11/30/17 05:30 PT 13.2 SECONDS (9.4-12.5) H 11/29/17 10:57 INR 1.14 (0.93-1.08) H 11/29/17 10:57 APTT 28.3 Seconds (25.1-36.5) 11/30/17 05:30 Attending/Attestation - Attestation I have personally seen and examined this patient.: Yes I have fully participated in the care of the patient.: Yes I have reviewed all pertinent clinical information, including history, physical exam and plan: Yes Notes (Text): 11/30/17 16:30 57 year old male with past medical history of ETOH abuse who presented with altered mental status, hyperglycemia and possible RLE cellulitis. CT head reviewed as above with ?hydrocephalus. Neurology evaluation was requested who ordered for EEG and MRI brain. Alcohol level was negative. Urine drug screen is pending. Continue with banana bag and ativan prn in case of withdrawal symptoms. Agree with iv antibiotics for possible RLE cellulitis. Also started on clotrimazole. ID evaluation was requested. Will follow up on cultures. Continue with insulin ss for diabetes. A1c level was elevated at 11.2 and patient is started on levemir. Will continue to monitor. Sixto Galo MD Hospitalist.
--- NOTE | 2017-11-30 16:15 | RAD ---
PROCEDURE: Right Hip Radiographs. HISTORY: r hip cellulitis COMPARISON: None. FINDINGS: BONES: Examination limited. No external rotation view submitted. No fracture identified. JOINTS: Normal. SOFT TISSUES: Normal. OTHER FINDINGS: None. IMPRESSION: Limited examination. No plain radiographic evidence of osteomyelitis.
--- NOTE | 2017-11-30 20:16 | CON ---
DATE: 11/30/2017 LOCATION: The patient is seen in room 275, bed 1. CHIEF COMPLAINT: Erythema on the right side of his buttocks and leg. HISTORY OF PRESENT ILLNESS: This is a 57-year-old male with past medical history is unremarkable who was admitted to the emergency room because of change in mental status and difficult to communicate with the patient. He does not seem to verbalize. It is unclear what his baseline is. Infectious Disease consultation requested for antibiotic choices. REVIEW OF SYSTEMS: Reveals the patient was brought in by ambulance, found being with change in mental status, covered in feces in his apartment and there has been low-grade fevers reported. No abdominal pain or diarrhea. PAST MEDICAL HISTORY: Unclear. PAST SURGICAL HISTORY: Unknown. ALLERGIES: The patient has no known allergies reported. MEDICATIONS: It is unclear what medications he takes at home. PHYSICAL EXAMINATION: GENERAL: He is in bed. VITAL SIGNS: Temperature of 98, respiratory rate of 22, heart rate of 130, blood pressure is 150/60. HEENT: Examination of HEENT is unremarkable. NECK: Supple. LUNGS: Have decreased breath sounds. HEART: Normal S1 and S2. ABDOMEN: Soft. SKIN: On examination of the right side of his body, there is mild erythema and breakdown of the skin where he apparently was found lying on. LABORATORY DATA: Laboratory examination reveals a white count of 17,000, which is down to 11,000 and hemoglobin of 16, platelets of 360. Blood gases are noted. BUN of 19, creatinine of 0.5. Toxicology reveals noted. Microbiology is pending. The patient had a chest x-ray, which is negative. CAT scan of the head, which diffuse white matter changes, nonspecific. No evidence of any acute changes. Dr. Galo's sepsis progress note is noted and Dr. Galo's history and physical examination is reviewed. ASSESSMENT AND PLAN: A 57-year-old male with sepsis with right-sided buttocks cellulitis from being found on vancomycin and Zosyn. We will check on the pancultures, check on the human immunodeficiency virus and clinical response and we will follow closely with you. Daniel Torres MD [facility] # [id number]
[2017-11-30] MEDS: Insulin Detemir 100 units/ml Vial (Levemir) SC SCH (21:51)
[2017-12-01] MEDS: Multivitamin (MVI) 10 ML, Thiamine 100 MG, Folic Acid 1 MG in Sodium Chloride 0.9% 1,00... IV SCH ×2 (00:32→17:45)
[2017-12-01] MEDS: Vancomycin 1gm in NS 250ml 1 GM/250 ML BAG IVPB SCH ×2 (00:44→17:05)
[2017-12-01] MEDS: Piperacillin/Tazobact 3.375 gm 100 ML IVPB SCH ×4 (05:17→23:01)
[2017-12-01 06:35] LABS: BASO # 0.02 K/mm3 (0.0-2.0); BASO % 0.2 % (0.0-3.0); EOS # 0.1 (0.0-0.7); EOS % 0.5 % (1.5-5.0); GRAN # 7.07 (1.4-6.5); HEMOGLOBIN 11.8 g/dL (14.0-18.0); LYMPH # 1.8 (1.2-3.4); LYMPH % 18.7 % (22.0-35.0); MEAN CELL VOLUME 86.6 fl (80.0-105.0); MEAN CORPUSCULAR HEMOGLOBIN 27.3 pg (25.0-35.0); MEAN CORPUSCULAR HGB CONC 31.5 g/dl (31.0-37.0); MEAN PLATELET VOLUME 9.2 fl (7.0-11.0); MONO # 0.8 (0.1-0.6); MONO % 8.6 % (1.0-6.0); RBC 4.33 10^6/uL (3.5-6.1); RED CELL DISTRIBUTION WIDTH 14.4 % (11.5-14.5); WHITE BLOOD COUNT 9.8 10^3/ul (4.5-11.0)
[2017-12-01 07:04] LABS: ALB/GLOB RATIO 0.9 (1.1-1.8); ALBUMIN 2.6 g/dL (3.0-4.8); ALT/SGPT 30 U/L (7-56); AST/SGOT 26 U/L (17-59); BLOOD UREA NITROGEN 11 mg/dL (7-21); CALCIUM 8.5 mg/dL (8.4-10.5); GFR NON-AFRICAN AMERICAN > 60
[2017-12-01] MEDS: Insulin Reg-HIGH-Coverage SC SCH ×4 (08:17→22:15)
[2017-12-01] MEDS ORDERED: Potassium Chloride 20 mEq ER Tab PO STA ×2 (08:32)
--- NOTE | 2017-12-01 12:58 | CP.PCM.PN ---
<Ryan White - Last Filed: 12/01/17 20:25> Subjective - Date & Time of Evaluation Date of Evaluation: 12/01/17 Time of Evaluation: 12:52 - Subjective Subjective: Medicine Progress Note: Patient seen and assessed at bedside. No acute events overnight noted by patient or nursing staff. Patient noted to have improved mental status, reporting that he has no pain or complaints but still largely without verbal reply to questioning. Patient denies pain or any complaints at this time. ROS limited due to patient cooperation. Objective - Vital Signs/Intake and Output Vital Signs (last 24 hours): Temp Pulse Resp BP Pulse Ox 98.2 F 88 20 157/86 H 94 L 12/01/17 12:00 12/01/17 12:00 12/01/17 12:00 12/01/17 12:00 12/01/17 05:46 Intake and Output: 12/01/17 12/01/17 06:59 18:59 Intake Total 2940 Balance 2940 - Medications Medications: Current Medications Acetaminophen (Tylenol 325mg Tab) 650 mg PO Q6H PRN PRN Reason: Fever >100.4 F Clotrimazole (Lotrimin Af 1%) 0 ml TOP BID [facility] Folic Acid (Folic Acid) 1 mg PO DAILY [facility] Heparin Sodium (Porcine) (Heparin) 5,000 units SC Q12 [facility] PRN Reason: Protocol Last Admin: 11/30/17 21:50 Dose: 5,000 units Vancomycin HCl (Vancomycin 1gm) 1 gm in 250 mls @ 167 mls/hr IVPB Q12H [facility] PRN Reason: Protocol Last Admin: 12/01/17 00:44 Dose: 167 mls/hr Piperacillin Sod/Tazobactam Sod (Zosyn 3.375 In Ns 100ml) 100 mls @ 200 mls/hr IVPB Q6 [facility] PRN Reason: Protocol Stop: 12/04/17 18:01 Last Admin: 12/01/17 05:17 Dose: 200 mls/hr Insulin Detemir (Levemir) 10 unit SC HS [facility] Last Admin: 11/30/17 21:51 Dose: 10 unit Insulin Human Regular (Humulin R High) 0 units SC ACHS [facility] PRN Reason: Protocol Last Admin: 12/01/17 08:17 Dose: 2 units Lorazepam (Ativan) 1 mg IVP Q6H PRN; Protocol PRN Reason: Anxiety Last Admin: 11/29/17 17:07 Dose: 1 mg Multivitamins/Minerals (Therapeutic-M Tab) 1 tab PO 0800 [facility] Pantoprazole Sodium (Protonix Ec Tab) 40 mg PO ACB [facility] Thiamine HCl (Vitamin B1 Tab) 100 mg PO DAILY [facility] - Labs Labs: 12/01/17 06:00 12/01/17 06:00 PT 13.2 SECONDS (9.4-12.5) H 11/29/17 10:57 INR 1.14 (0.93-1.08) H 11/29/17 10:57 APTT 28.3 Seconds (25.1-36.5) 11/30/17 05:30 - Constitutional Appears: Non-toxic, No Acute Distress - Head Exam Head Exam: ATRAUMATIC, NORMAL INSPECTION, NORMOCEPHALIC - Eye Exam Eye Exam: EOMI, Normal appearance, PERRL - ENT Exam ENT Exam: Mucous Membranes Moist, Normal Exam - Neck Exam Neck Exam: Full ROM, Normal Inspection. absent: Lymphadenopathy - Respiratory Exam Respiratory Exam: Clear to Ausculation Bilateral, NORMAL BREATHING PATTERN. absent: Accessory Muscle Use, Chest Wall Tenderness, Decreased Breath Sounds, Prolonged Expiratory Phase, Rales, Rhonchi, Wheezes, Respiratory Distress, Stridor - Cardiovascular Exam Cardiovascular Exam: REGULAR RHYTHM, RRR, +S1, +S2 - GI/Abdominal Exam GI & Abdominal Exam: Soft, Normal Bowel Sounds. absent: Tenderness - Extremities Exam Extremities Exam: Normal Capillary Refill. absent: Calf Tenderness, Joint Swelling, Pedal Edema Additional comments: Erythematous rash with skin sloughing and various areas of purulent discharge extending from right lateral thigh posteriorly to right gluteus region and anal cleft; Assessment and Plan - Assessment and Plan (Free Text) Assessment: 57 year old male with an unknown past medical history who was brought in by ambulance after being found with an AMS and covered in feces in his apartment. Patient is currently awake and oriented to person but not to place, time, or event. Patient is uncooperative with HPI questioning and ROS was unobtainable. In the ED, patient was found to have leukocytosis, tachycardia and elevated lactic acid for which a code sepsis was called. He was started on IV Vancomycin and Zosyn as well as given two one liter boluses of normal saline. A blood glucose was found to be elevated at 503. A CT Head showed findings suspicious for hydrocephalus but no acute intracranial hemorrhage. A Chest X-Ray showed no active disease. Patient currently growing gram positive cocci in blood culture. Plan: 1. AMS -CT Head showed finding suspicious for hydrocephalus and no acute intracranial hemorrhage -Chest X-Ray showing no active disease -EKG showing sinus tachycardia -Ammonia, Tylenol, ASA and Alcohol levels within normal limits -Serial troponins negative -MRI Brain, EEG and UDS pending -Ativan 1mg IVP Q6H PRN -PO Folate, Thiamine, and MV supplementation -CIWA Assessments -Fall, Seizure and Aspiration precautions -Neurology consulted, all recommendations 2. Sepsis with Suspected Cellulitis Source -Right Hip X-Ray showing no osteomyelitis and no fracture -Blood cultures growing gram positive cocci, repeat blood cultures pending -Continue IV Vancomycin and Zosyn for empiric coverage -Tylenol PRN for fever -Lotrimin AF Ointment PRN -Wound Care referral -ID consulted, all recommendations appreciated 3. Hyperglycemia -SSI-High and Accuchecks ACHS -Levemir 10u HS -Carb Consistent Diet GI Prophylaxis: Protonix DVT Prophylaxis: Heparin and SCD's Patient seen and case discussed with attending, Dr. Galo. <Sixto Galo - Last Filed: 12/02/17 07:22> Objective - Vital Signs/Intake and Output Vital Signs (last 24 hours): Temp Pulse Resp BP Pulse Ox 97.5 F L 93 H 19 148/90 93 L 12/02/17 06:00 12/02/17 06:00 12/02/17 06:00 12/02/17 06:00 12/02/17 06:00 Intake and Output: 12/02/17 12/02/17 06:59 18:59 Intake Total 1350 Balance 1350 - Medications Medications: Current Medications Acetaminophen (Tylenol 325mg Tab) 650 mg PO Q6H PRN PRN Reason: Fever >100.4 F Clotrimazole (Lotrimin Af 1%) 0 ml TOP BID [facility] Last Admin: 12/01/17 17:02 Dose: 1 applic Folic Acid (Folic Acid) 1 mg PO DAILY [facility] Heparin Sodium (Porcine) (Heparin) 5,000 units SC Q12 [facility] PRN Reason: Protocol Last Admin: 12/01/17 23:00 Dose: 5,000 units Vancomycin HCl (Vancomycin 1gm) 1 gm in 250 mls @ 167 mls/hr IVPB Q12H [facility] PRN Reason: Protocol Last Admin: 12/02/17 00:49 Dose: 167 mls/hr Piperacillin Sod/Tazobactam Sod (Zosyn 3.375 In Ns 100ml) 100 mls @ 200 mls/hr IVPB Q6 [facility] PRN Reason: Protocol Stop: 12/04/17 18:01 Last Admin: 12/02/17 05:04 Dose: 200 mls/hr Insulin Detemir (Levemir) 10 unit SC HS [facility] Last Admin: 12/01/17 22:15 Dose: Not Given Insulin Human Regular (Humulin R High) 0 units SC ACHS [facility] PRN Reason: Protocol Last Admin: 12/01/17 22:15 Dose: Not Given Lorazepam (Ativan) 1 mg IVP Q6H PRN; Protocol PRN Reason: Anxiety Last Admin: 11/29/17 17:07 Dose: 1 mg Multivitamins/Minerals (Therapeutic-M Tab) 1 tab PO 0800 [facility] Pantoprazole Sodium (Protonix Ec Tab) 40 mg PO ACB [facility] Thiamine HCl (Vitamin B1 Tab) 100 mg PO DAILY [facility] - Labs Labs: 12/01/17 06:00 12/01/17 06:00 PT 13.2 SECONDS (9.4-12.5) H 11/29/17 10:57 INR 1.14 (0.93-1.08) H 11/29/17 10:57 APTT 28.3 Seconds (25.1-36.5) 11/30/17 05:30 Attending/Attestation - Attestation I have personally seen and examined this patient.: Yes I have fully participated in the care of the patient.: Yes I have reviewed all pertinent clinical information, including history, physical exam and plan: Yes Notes (Text): 12/01/17 57 year old male with past medical history of ETOH abuse who presented with altered mental status, hyperglycemia and RLE/buttock cellulitis. CT head reviewed as above with ?hydrocephalus. Neurology evaluation was requested who ordered for EEG and MRI brain. Alcohol level was negative. Urine drug screen is pending. Continue with banana bag and ativan prn in case of withdrawal symptoms. Continue with iv antibiotics for RLE/buttock cellulitis. He is also on clotrimazole. ID is following. He has positive blood cultures x 2. R/o bacteremia vs contamination. Repeat blood cultures are negative to date. Continue with insulin ss for diabetes. A1c level was elevated at 11.2 and patient is started on levemir. Will continue to monitor. Sixto Galo MD Hospitalist.
--- NOTE | 2017-12-01 14:34 | CP.PCM.PN ---
Subjective - Date & Time of Evaluation Date of Evaluation: 12/01/17 Time of Evaluation: 07:20 - Subjective Subjective: Neurology Progress note: Pt seen and examined at bedside. No acute events overnight. Pt is AAO x 1. He does not know where he is or what year it is. Answering one word answers. Denies any pain at this time. As per nurses the patients brother came to bedside and stated that patient is talking less but close to his baseline. 12 Point ROS performed and negative other than stated above. Objective - Vital Signs/Intake and Output Vital Signs (last 24 hours): Temp Pulse Resp BP Pulse Ox 98.2 F 88 20 157/86 H 94 L 12/01/17 12:00 12/01/17 12:00 12/01/17 12:00 12/01/17 12:00 12/01/17 05:46 Intake and Output: 12/01/17 12/01/17 06:59 18:59 Intake Total 2940 Balance 2940 - Medications Medications: Current Medications Acetaminophen (Tylenol 325mg Tab) 650 mg PO Q6H PRN PRN Reason: Fever >100.4 F Clotrimazole (Lotrimin Af 1%) 0 ml TOP BID [facility] Folic Acid (Folic Acid) 1 mg PO DAILY [facility] Heparin Sodium (Porcine) (Heparin) 5,000 units SC Q12 [facility] PRN Reason: Protocol Last Admin: 12/01/17 12:56 Dose: 5,000 units Vancomycin HCl (Vancomycin 1gm) 1 gm in 250 mls @ 167 mls/hr IVPB Q12H [facility] PRN Reason: Protocol Last Admin: 12/01/17 00:44 Dose: 167 mls/hr Piperacillin Sod/Tazobactam Sod (Zosyn 3.375 In Ns 100ml) 100 mls @ 200 mls/hr IVPB Q6 [facility] PRN Reason: Protocol Stop: 12/04/17 18:01 Last Admin: 12/01/17 13:04 Dose: 200 mls/hr Insulin Detemir (Levemir) 10 unit SC HS [facility] Last Admin: 11/30/17 21:51 Dose: 10 unit Insulin Human Regular (Humulin R High) 0 units SC ACHS [facility] PRN Reason: Protocol Last Admin: 12/01/17 13:03 Dose: 4 units Lorazepam (Ativan) 1 mg IVP Q6H PRN; Protocol PRN Reason: Anxiety Last Admin: 11/29/17 17:07 Dose: 1 mg Multivitamins/Minerals (Therapeutic-M Tab) 1 tab PO 0800 [facility] Pantoprazole Sodium (Protonix Ec Tab) 40 mg PO ACB [facility] Thiamine HCl (Vitamin B1 Tab) 100 mg PO DAILY [facility] - Labs Labs: 12/01/17 06:00 12/01/17 06:00 PT 13.2 SECONDS (9.4-12.5) H 11/29/17 10:57 INR 1.14 (0.93-1.08) H 11/29/17 10:57 APTT 28.3 Seconds (25.1-36.5) 11/30/17 05:30 - Constitutional Appears: No Acute Distress - Extremities Exam Extremities Exam: absent: Calf Tenderness, Pedal Edema - Neurological Exam Neurological Exam: Alert, Awake Neuro motor strength exam: Left Upper Extremity: 5, Right Upper Extremity: 5, Left Lower Extremity: 5, Right Lower Extremity: 5 Assessment and Plan - Assessment and Plan (Free Text) Assessment: 57 year old male with mostly unknown past medical history with presumed ETOH abuse presents to the hospital brought in by ambulance for AMS. On admission patient found to have wbc of 17.1, lactate of 2. 8, and hyperglycemic to 503. Patients prelim blood culture shows bacteremic with staph aureus. Patient AMS likely 2/2 toxic metabolic encephalopathy and likely acute on chronic hydrocephalus. Plan: - Patients prelim blood culture shows bacteremic with staph aureus - Antibiotics as per ID - currently on Vanc and Zosyn - CT head:negative for intarcranial hemmorhage, dilated ventricles which may represent central atrophy vs hydrocephalus, with possible transepedymal edema due to hydrocephalus. - MRI of brain with & w/o contrast ordered - pending - F/u EEGs read - Seizure precautions - Glycemic control with blood sugars 140-180 Case and plan was reviewed and discussed in detail with Dr Nevarez.
[2017-12-01] MEDS: Clotrimazole 1% Top Soln(10 ml) TOP SCH ×2 (17:02→17:45)
[2017-12-01] MEDS: Insulin Detemir 100 units/ml Vial (Levemir) SC SCH (22:15)
--- NOTE | 2017-12-01 22:17 | PN ---
DATE: 12/01/2017 SUBJECTIVE: The patient is seen earlier this morning in 275, bed 1. No fevers. No chills. PHYSICAL EXAMINATION: VITAL SIGNS: Temperature is 98, T-max yesterday was 100.1; heart rate of 98; blood pressure is 154/80; respiratory rate of 20; O2 saturation 93%. HEENT: Unremarkable. NECK: Supple. LUNGS: Have decreased breath sounds. HEART: Normal S1 and S2. ABDOMEN: Soft, nontender. No rebound, guarding, or masses. LABORATORY DATA: Reveals a white count of 9.8, hemoglobin of 11, platelets of 225. Chemistries reveal a BUN of 11, creatinine of 0.5. Toxicology is noted. Serology, HIV is negative. Microbiology reveals a gram-positive cocci in the blood cultures, 2 bottles, there are 2 gram-positive cocci identified. Initially, was identified as a coag-negative staph, now that information is not available on the chart, they just stated that the gram-positive cocci and awaiting for further identification and sensitivity. Review of orders reveals the patient had repeat blood cultures that are pending and the patient is on vancomycin and Zosyn. ASSESSMENT AND PLAN: A 57-year-old male who was admitted with sepsis and gram-positive cocci bacteremia, right--sided buttock cellulitis, on vancomycin and Zosyn. We will check on repeats cultures and identification of gram-positive cocci and we will make further recommendations. Daniel Torres MD
[2017-12-02] MEDS: Vancomycin 1gm in NS 250ml 1 GM/250 ML BAG IVPB SCH ×2 (00:49→14:30)
[2017-12-02] MEDS: Piperacillin/Tazobact 3.375 gm 100 ML IVPB SCH ×4 (05:04→23:19)
[2017-12-02 07:22] LABS: BASO # 0.02 K/mm3 (0.0-2.0); BASO % 0.3 % (0.0-3.0); EOS # 0.1 (0.0-0.7); EOS % 1.7 % (1.5-5.0); GRAN # 4.99 (1.4-6.5); GRAN % 68.6 % (50.0-68.0); HEMOGLOBIN 11.6 g/dL (14.0-18.0); LYMPH # 1.6 (1.2-3.4); MEAN CELL VOLUME 84.8 fl (80.0-105.0); MEAN CORPUSCULAR HEMOGLOBIN 27.5 pg (25.0-35.0); MEAN CORPUSCULAR HGB CONC 32.4 g/dl (31.0-37.0); MEAN PLATELET VOLUME 9.1 fl (7.0-11.0); MONO # 0.5 (0.1-0.6); MONO % 7.4 % (1.0-6.0); RBC 4.22 10^6/uL (3.5-6.1); RED CELL DISTRIBUTION WIDTH 13.9 % (11.5-14.5); WHITE BLOOD COUNT 7.3 10^3/ul (4.5-11.0)
[2017-12-02 07:50] LABS: ALB/GLOB RATIO 0.9 (1.1-1.8); ALBUMIN 2.6 g/dL (3.0-4.8); ALT/SGPT 36 U/L (7-56); AST/SGOT 31 U/L (17-59); BLOOD UREA NITROGEN 7 mg/dL (7-21); CALCIUM 8.7 mg/dL (8.4-10.5); GFR NON-AFRICAN AMERICAN > 60
[2017-12-02] MEDS ORDERED: Gadodiamide 287 MG/ML VIAL (15ML) IV ONE (08:14)
[2017-12-02] MEDS ORDERED: Potassium Chloride 20 mEq ER Tab PO ONE (08:50)
--- NOTE | 2017-12-02 09:01 | CP.PCM.PN ---
<Sierra Hathaway - Last Filed: 12/02/17 11:23> Subjective - Date & Time of Evaluation Date of Evaluation: 12/02/17 Time of Evaluation: 08:58 - Subjective Subjective: PGY-[address] Galo Pt AAOx1, follow simple command. (+) suprapubic pain Objective - Vital Signs/Intake and Output Vital Signs (last 24 hours): Temp Pulse Resp BP Pulse Ox 97.5 F L 93 H 19 148/90 93 L 12/02/17 06:00 12/02/17 06:00 12/02/17 06:00 12/02/17 06:00 12/02/17 06:00 Intake and Output: 12/02/17 12/02/17 06:59 18:59 Intake Total 1350 Balance 1350 - Medications Medications: Current Medications Acetaminophen (Tylenol 325mg Tab) 650 mg PO Q6H PRN PRN Reason: Fever >100.4 F Clotrimazole (Lotrimin Af 1%) 0 ml TOP BID [facility] Last Admin: 12/01/17 17:02 Dose: 1 applic Folic Acid (Folic Acid) 1 mg PO DAILY [facility] Heparin Sodium (Porcine) (Heparin) 5,000 units SC Q12 [facility] PRN Reason: Protocol Last Admin: 12/01/17 23:00 Dose: 5,000 units Vancomycin HCl (Vancomycin 1gm) 1 gm in 250 mls @ 167 mls/hr IVPB Q12H [facility] PRN Reason: Protocol Last Admin: 12/02/17 00:49 Dose: 167 mls/hr Piperacillin Sod/Tazobactam Sod (Zosyn 3.375 In Ns 100ml) 100 mls @ 200 mls/hr IVPB Q6 [facility] PRN Reason: Protocol Stop: 12/04/17 18:01 Last Admin: 12/02/17 05:04 Dose: 200 mls/hr Insulin Detemir (Levemir) 10 unit SC HS [facility] Last Admin: 12/01/17 22:15 Dose: Not Given Insulin Human Regular (Humulin R High) 0 units SC ACHS [facility] PRN Reason: Protocol Last Admin: 12/01/17 22:15 Dose: Not Given Lorazepam (Ativan) 1 mg IVP Q6H PRN; Protocol PRN Reason: Anxiety Last Admin: 12/02/17 07:42 Dose: 1 mg Multivitamins/Minerals (Therapeutic-M Tab) 1 tab PO 0800 [facility] Pantoprazole Sodium (Protonix Ec Tab) 40 mg PO ACB [facility] Thiamine HCl (Vitamin B1 Tab) 100 mg PO DAILY [facility] - Labs Labs: 12/02/17 06:45 12/02/17 06:40 PT 13.2 SECONDS (9.4-12.5) H 11/29/17 10:57 INR 1.14 (0.93-1.08) H 11/29/17 10:57 APTT 28.3 Seconds (25.1-36.5) 11/30/17 05:30 - Constitutional Appears: No Acute Distress - Head Exam Head Exam: ATRAUMATIC, NORMAL INSPECTION, NORMOCEPHALIC - Eye Exam Eye Exam: EOMI, Normal appearance, PERRL. absent: Scleral icterus Pupil Exam: NORMAL ACCOMODATION - ENT Exam ENT Exam: Mucous Membranes Moist - Neck Exam Additional comments: supple - Respiratory Exam Respiratory Exam: Clear to Ausculation Bilateral, NORMAL BREATHING PATTERN. absent: Rales, Rhonchi, Wheezes - Cardiovascular Exam Cardiovascular Exam: REGULAR RHYTHM, +S1, +S2. absent: Murmur - GI/Abdominal Exam GI & Abdominal Exam: Soft, Normal Bowel Sounds. absent: Tenderness Additional comments: (+) suprapubic tenderness on palpation - Extremities Exam Extremities Exam: absent: Calf Tenderness, Pedal Edema Additional comments: Erythematous rash with skin sloughing and various areas of purulent discharge extending from right lateral thigh posteriorly to right gluteus region and anal cleft - Neurological Exam Neurological Exam: Alert, Awake Additional comments: Recall 0/3 after 5 mins follow 1 step command CN 2-12 intact Motor 4/5 UE, 3/5 LE Assessment and Plan - Assessment and Plan (Free Text) Plan: 57 year old male with an unknown past medical history who was brought in by ambulance after being found with an AMS and covered in feces in his apartment. Patient is currently awake and oriented to person but not to place, time, or event. In the ED, patient was found to have leukocytosis, tachycardia and elevated lactic acid for which a code sepsis was called. He was started on IV Vancomycin and Zosyn. A blood glucose was found to be elevated at 503. A CT Head showed findings suspicious for hydrocephalus but no acute intracranial hemorrhage. A Chest X-Ray showed no active disease. Patient currently growing gram positive cocci in blood culture but repeat culture is negative x 2. Physical exam is significant for (1) erythematous rash with skin sloughing and various areas of purulent discharge extending from right lateral thigh posteriorly to right gluteus region and anal cleft, (2) suprapubic tenderness, and (3) bilateral leg weakness 1. Suspected Acute vs subacute L parietal lacuna infarct - MRI brain: Acute vs subacute L parietal lacuna infarct, Prominent white matter abdormality in cerebrum - notified neurol team - aspirin and lipitor 40 to prevent stroke - PT eval 1. AMS likely from sepsis due to cellutitis vs ?UTI vs hydrocephalus vs ?stroke - Pending Urinalysis, urine culture -CT Head showed finding suspicious for hydrocephalus and no acute intracranial hemorrhage (central atrophy vs hydrocephalus, with possible transepedymal edema due to hydrocephalus) - MRI brain: Acute vs subacute L parietal lacuna infarct, Prominent white matter abdormality in cerebrum -Chest X-Ray showing no active disease -EKG showing sinus tachycardia - resolved -Ammonia, Tylenol, ASA and Alcohol levels within normal limits -Serial troponins negative -EEG and UDS pending -Ativan 1mg IVP Q6H PRN -PO Folate, Thiamine, and MV supplementation -CIWA Assessments -Fall, Seizure and Aspiration precautions -Neurology consulted, all recommendations 2. Sepsis with Suspected Cellulitis Source -Right Hip X-Ray showing no osteomyelitis and no fracture -Blood cultures growing gram positive cocci, repeat blood cultures negative x 1 day likely contamination -Continue IV Vancomycin and Zosyn for empiric coverage -Tylenol PRN for fever -Lotrimin AF Ointment PRN -Wound Care referral -ID consulted, all recommendations appreciated 3. Hyperglycemia -SSI-High and Accuchecks ACHS -Levemir 10u HS -Carb Consistent Diet GI Prophylaxis: Protonix DVT Prophylaxis: Heparin and SCD's Patient seen and case discussed with attending, Dr. Galo. <Sixto Galo - Last Filed: 12/02/17 16:47> Objective - Vital Signs/Intake and Output Vital Signs (last 24 hours): Temp Pulse Resp BP Pulse Ox 97.5 F L 93 H 19 148/90 93 L 12/02/17 06:00 12/02/17 06:00 12/02/17 06:00 12/02/17 06:00 12/02/17 06:00 Intake and Output: 12/02/17 12/02/17 06:59 18:59 Intake Total 1350 720 Balance 1350 720 - Medications Medications: Current Medications Acetaminophen (Tylenol 325mg Tab) 650 mg PO Q6H PRN PRN Reason: Fever >100.4 F Aspirin (Ecotrin) 81 mg PO DAILY [facility] Last Admin: 12/02/17 12:00 Dose: 81 mg Atorvastatin Calcium (Lipitor) 40 mg PO DIN [facility] Clotrimazole (Lotrimin Af 1%) 0 ml TOP BID [facility] Last Admin: 12/02/17 09:48 Dose: Not Given Folic Acid (Folic Acid) 1 mg PO DAILY [facility] Last Admin: 12/02/17 09:56 Dose: 1 mg Heparin Sodium (Porcine) (Heparin) 5,000 units SC Q12 [facility] PRN Reason: Protocol Last Admin: 12/02/17 09:58 Dose: 5,000 units Hydralazine HCl (Apresoline) 10 mg IVP Q6 PRN PRN Reason: For SBP > 150 Vancomycin HCl (Vancomycin 1gm) 1 gm in 250 mls @ 167 mls/hr IVPB Q12H [facility] PRN Reason: Protocol Last Admin: 12/02/17 14:30 Dose: 167 mls/hr Piperacillin Sod/Tazobactam Sod (Zosyn 3.375 In Ns 100ml) 100 mls @ 200 mls/hr IVPB Q6 [facility] PRN Reason: Protocol Stop: 12/04/17 18:01 Last Admin: 12/02/17 11:59 Dose: 200 mls/hr Insulin Detemir (Levemir) 10 unit SC HS [facility] Last Admin: 12/01/17 22:15 Dose: Not Given Insulin Human Regular (Humulin R High) 0 units SC ACHS [facility] PRN Reason: Protocol Last Admin: 12/02/17 11:58 Dose: 2 units Lorazepam (Ativan) 1 mg IVP Q6H PRN; Protocol PRN Reason: Anxiety Last Admin: 12/02/17 07:42 Dose: 1 mg Multivitamins/Minerals (Therapeutic-M Tab) 1 tab PO 0800 [facility] Last Admin: 12/02/17 09:56 Dose: 1 tab Pantoprazole Sodium (Protonix Ec Tab) 40 mg PO ACB [facility] Last Admin: 12/02/17 09:56 Dose: 40 mg Thiamine HCl (Vitamin B1 Tab) 100 mg PO DAILY [facility] Last Admin: 12/02/17 09:56 Dose: 100 mg - Labs Labs: 12/02/17 06:45 12/02/17 06:40 PT 13.2 SECONDS (9.4-12.5) H 11/29/17 10:57 INR 1.14 (0.93-1.08) H 11/29/17 10:57 APTT 28.3 Seconds (25.1-36.5) 11/30/17 05:30 Attending/Attestation - Attestation I have personally seen and examined this patient.: Yes I have fully participated in the care of the patient.: Yes I have reviewed all pertinent clinical information, including history, physical exam and plan: Yes Notes (Text): 12/02/17 16:46 57 year old male with past medical history of ETOH abuse who presented with altered mental status, hyperglycemia and RLE/buttock cellulitis. CT head reviewed as above with ?hydrocephalus. This was followed up with MRI which shows acute vs subacute infarct. Continue with aspirin and statin. Neurology is also following and PT evaluation is requested. EEG was reviewed. Alcohol level was negative. Urine drug screen is pending. Continue with multivitamin, folic acid and thiamine. Continue with iv antibiotics for RLE/buttock cellulitis. He is also on clotrimazole. ID is following. He has positive blood cultures x 2. Repeat blood cultures are negative to date. Echocardiogram is ordered. Continue with insulin ss for diabetes. A1c level was elevated at 11.2 and patient is started on levemir. Will continue to monitor. Sixto Galo MD Hospitalist.
--- NOTE | 2017-12-02 09:34 | EEG ---
DATE: TECHNICAL INFORMATION: This is an EEG acquired using 16 electrodes placed using the standard 10-20 electrode placement system. All electrodes were referenced to P1/P2, A1/A2 electrodes. Continuous EEG monitoring was done with spike detection software. There is a normal 8-10 Hz posterior dominant rhythm that was reactive, symmetric, and attenuates with eye opening. There is no sleep captured. Activation maneuvers did not produce any abnormal activity. There is continuous left frontotemporal slowing in the F2, F5 electrodes with an admixture of theta and delta frequencies. There were no clinical or subclinical seizures. IMPRESSION: This is an abnormal awake and sleepy electroencephalogram. The presence of left temporal slowing indicates structural abnormality and may also be postictal slowing. Clinical correlation is required. Master Pendleton MD
[2017-12-02] MEDS: Clotrimazole 1% Top Soln(10 ml) TOP SCH ×2 (09:48→17:12)
[2017-12-02] MEDS: Multivitamin With Minerals Tab PO SCH (09:56)
[2017-12-02] MEDS: Pantoprazole 40 mg EC Tab PO SCH (09:56)
[2017-12-02] MEDS: Insulin Reg-HIGH-Coverage SC SCH ×4 (09:57→22:02)
--- NOTE | 2017-12-02 10:49 | MRI ---
PROCEDURE: MRI BRAIN WITH AND WITHOUT CONTRAST HISTORY: acute encephalopathy and hydrocephalus COMPARISON: None. TECHNIQUE: Multiplanar, multisequence MR images of the brain were obtained with and without intravenous contrast enhancement. FINDINGS: Examination is compromised by extensive artifact related to motion. HEMORRHAGE: None DWI: An acute lacunar infarction is identified at the left parietal periventricular white matter. Multiple chronic lacune type infarcts is seen at the bilateral thalami, left basal ganglia and possibly right basal ganglia as well. BRAIN PARENCHYMA: There is mild expansion of the sulci and cisterns in this patient with the ventricular system appearing prominent on a moderate basis, outer context to the amount of peripheral extra-axial space. Given this diffuse pattern, normal pressure hydrocephalus is not excluded. In addition, extensive white matter edema is appreciate throughout the cerebrum and also affects the sima [id number]. Corpus callosum appears unaffected and demyelination is not favored though is not completely excluded either. Pattern for matter changes more extensive than would be expected for transependymal edema alone though this too is difficult to completely exclude in part. The pattern is nonspecific as suggested by prior CT exam, and includes a lengthy differential diagnosis varying from metabolic, vasculitis/inflammatory to infectious or even post radiation change and further clinical correlation is advised. ENHANCEMENT: Motion artifacts limit the examination, however, no definitive abnormal intracranial high enhancement is demonstrated above or below the tentorium. VENTRICLES: As above. CRANIUM: Unremarkable. ORBITS: Grossly unremarkable. PARANASAL SINUSES/MASTOIDS: Clear VASCULAR SYSTEM: Skull base flow voids intact. OTHER FINDINGS: None . IMPRESSION: 1. Prominent white-matter signal abnormality is appreciated throughout the cerebrum sparing the corpus callosum comprising a broad differential diagnosis varying from potential metabolic or even demyelination etiologies up to post radiation change. No abnormal intracranial enhancement identified throughout the exam. Please see discussion above. 2. Restricted diffusion in the small area at the deep left parietal white matter may indicate an acute or subacute lacunar infarct. 3. Ventricular volume is diffusely increased out of context to the amount of cerebral atrophy identified and is suspicious for normal pressure hydrocephalus. 4. No abnormal intracranial enhancement however the study is compromised by extensive motion related artifact.
[2017-12-02 12:45] LABS: HDL CHOLESTEROL 26 mg/dL (29-60)
[2017-12-02 12:57] LABS: LDL CHOLESTEROL 76 mg/dL (0-129)
--- NOTE | 2017-12-02 14:59 | CP.PCM.PN ---
Subjective - Date & Time of Evaluation Date of Evaluation: 12/02/17 Time of Evaluation: 14:55 - Subjective Subjective: Mr. Montano was seen and examined today at bedside. He did not have any new complaints. He continued to be confused and relatively encephalopathic. I discussed the results of the MRI brain with him, but it is not certain whether or not he understood. He was not oriented to place, time or his age. Objective - Vital Signs/Intake and Output Vital Signs (last 24 hours): Temp Pulse Resp BP Pulse Ox 97.5 F L 93 H 19 148/90 93 L 12/02/17 06:00 12/02/17 06:00 12/02/17 06:00 12/02/17 06:00 12/02/17 06:00 Intake and Output: 12/02/17 12/02/17 06:59 18:59 Intake Total 1350 720 Balance 1350 720 - Medications Medications: Current Medications Acetaminophen (Tylenol 325mg Tab) 650 mg PO Q6H PRN PRN Reason: Fever >100.4 F Aspirin (Ecotrin) 81 mg PO DAILY [facility] Last Admin: 12/02/17 12:00 Dose: 81 mg Atorvastatin Calcium (Lipitor) 40 mg PO DIN [facility] Clotrimazole (Lotrimin Af 1%) 0 ml TOP BID [facility] Last Admin: 12/02/17 09:48 Dose: Not Given Folic Acid (Folic Acid) 1 mg PO DAILY [facility] Last Admin: 12/02/17 09:56 Dose: 1 mg Heparin Sodium (Porcine) (Heparin) 5,000 units SC Q12 [facility] PRN Reason: Protocol Last Admin: 12/02/17 09:58 Dose: 5,000 units Vancomycin HCl (Vancomycin 1gm) 1 gm in 250 mls @ 167 mls/hr IVPB Q12H [facility] PRN Reason: Protocol Last Admin: 12/02/17 14:30 Dose: 167 mls/hr Piperacillin Sod/Tazobactam Sod (Zosyn 3.375 In Ns 100ml) 100 mls @ 200 mls/hr IVPB Q6 [facility] PRN Reason: Protocol Stop: 12/04/17 18:01 Last Admin: 12/02/17 11:59 Dose: 200 mls/hr Insulin Detemir (Levemir) 10 unit SC [facility] Last Admin: 12/01/17 22:15 Dose: Not Given Insulin Human Regular (Humulin R High) 0 units SC ACHS [facility] PRN Reason: Protocol Last Admin: 12/02/17 11:58 Dose: 2 units Lorazepam (Ativan) 1 mg IVP Q6H PRN; Protocol PRN Reason: Anxiety Last Admin: 12/02/17 07:42 Dose: 1 mg Multivitamins/Minerals (Therapeutic-M Tab) 1 tab PO 0800 [facility] Last Admin: 12/02/17 09:56 Dose: 1 tab Pantoprazole Sodium (Protonix Ec Tab) 40 mg PO ACB [facility] Last Admin: 12/02/17 09:56 Dose: 40 mg Thiamine HCl (Vitamin B1 Tab) 100 mg PO DAILY [facility] Last Admin: 12/02/17 09:56 Dose: 100 mg - Labs Labs: 12/02/17 06:45 12/02/17 06:40 PT 13.2 SECONDS (9.4-12.5) H 11/29/17 10:57 INR 1.14 (0.93-1.08) H 11/29/17 10:57 APTT 28.3 Seconds (25.1-36.5) 11/30/17 05:30 - Neurological Exam Neurological Exam: Alert, Awake, CN II-XII Intact Neuro motor strength exam: Left Upper Extremity: 4, Right Upper Extremity: 4, Left Lower Extremity: 4, Right Lower Extremity: 4 Additional comments: Neurologically unchanged compared with the previous examination. Assessment and Plan (1) Ischemic stroke Assessment & Plan: This appears to be watershed and could be due to sepsis/hypotension. Will start aspirin, statin and continue stroke work-up with echocardiogram with bubble study and to evaluate for possible endocarditis. Continue fluids with NS and avoid dextrose containing fluids. PT/OT eval and treatment. DVT Px. Status: Acute (2) Altered mental status Assessment & Plan: Likely due to toxic-metabolic encephalopathy. Continue treatment of sepsis. Status: Acute
[2017-12-02 19:40] LABS: HEMOGLOBIN 13.3 g/dL (14.0-18.0)
[2017-12-02] MEDS: Insulin Detemir 100 units/ml Vial (Levemir) SC SCH (22:02)
[2017-12-03] MEDS: Vancomycin 1gm in NS 250ml 1 GM/250 ML BAG IVPB SCH ×2 (00:50→14:30)
[2017-12-03 01:53] LABS: HEMOGLOBIN 12.7 g/dL (14.0-18.0)
--- NOTE | 2017-12-03 02:44 | PN ---
DATE: 12/02/2017 SUBJECTIVE: The patient is seen earlier this morning in room 275, bed 1, and later moved. No fevers. No chills. PHYSICAL EXAMINATION: VITAL SIGNS: Temperature is 97, blood pressure is 150/100, respiratory rate of 18. HEENT: Unremarkable. NECK: Supple. LUNGS: Have decreased breath sounds. HEART: Normal S1 and S2. ABDOMEN: Soft, nontender. LABORATORY DATA: Reveals patient's white count is 7.3, hemoglobin is noted, platelets of 188,000. Chemistries reveal a BUN of 7, creatinine of 0.7. HIV is negative. Microbiology reveals the patient's initial blood cultures had grown coag-negative staph by PNA FISH, and also strep viridans. Coag-negative staph is relatively sensitive as is the strep viridans, mostly to ceftriaxone. The repeat blood cultures are no growth at this time. Review of orders reveals the patient to be on vancomycin and Zosyn. Echo is still pending. ASSESSMENT AND PLAN: This is a 57-year-old male who was seen earlier today, who was admitted with sepsis with coag-negative staph and strep viridans bacteremia with a right-sided buttock and back cellulitis when patient was on that side, currently on vancomycin and Zosyn, awaiting for identification of the gram-positive cocci, and the second bottle of blood cultures, routine check, awaiting for the echo results to rule out endocarditis. Patient also had an MRI of the head, which revealed patient to have a questionable demyelination etiology and questionable subacute lacunar infarct. We will follow closely with you. We will check on the echo to rule out endocarditis. Daniel Torres MD
[2017-12-03] MEDS: Piperacillin/Tazobact 3.375 gm 100 ML IVPB SCH ×3 (05:22→17:01)
[2017-12-03 06:34] LABS: BASO # 0.03 K/mm3 (0.0-2.0); BASO % 0.5 % (0.0-3.0); EOS # 0.1 (0.0-0.7); EOS % 2.2 % (1.5-5.0); GRAN # 3.95 (1.4-6.5); GRAN % 62.9 % (50.0-68.0); LYMPH # 1.7 (1.2-3.4); LYMPH % 26.4 % (22.0-35.0); MEAN CELL VOLUME 83.7 fl (80.0-105.0); MEAN CORPUSCULAR HEMOGLOBIN 27.5 pg (25.0-35.0); MEAN CORPUSCULAR HGB CONC 32.9 g/dl (31.0-37.0); MEAN PLATELET VOLUME 9.4 fl (7.0-11.0); MONO # 0.5 (0.1-0.6); RBC 4.36 10^6/uL (3.5-6.1); RED CELL DISTRIBUTION WIDTH 13.8 % (11.5-14.5); WHITE BLOOD COUNT 6.3 10^3/ul (4.5-11.0)
[2017-12-03 06:50] LABS: ALB/GLOB RATIO 0.9 (1.1-1.8); ALBUMIN 2.7 g/dL (3.0-4.8); ALT/SGPT 34 U/L (7-56); AST/SGOT 26 U/L (17-59); BLOOD UREA NITROGEN 5 mg/dL (7-21); CALCIUM 8.6 mg/dL (8.4-10.5); GFR NON-AFRICAN AMERICAN > 60
[2017-12-03] MEDS ORDERED: Potassium Chloride 20 mEq ER Tab PO STA ×2 (07:00)
[2017-12-03] MEDS: Insulin Reg-HIGH-Coverage SC SCH ×4 (08:13→22:30)
[2017-12-03] MEDS: Pantoprazole 40 mg EC Tab PO SCH (08:14)
[2017-12-03] MEDS: Multivitamin With Minerals Tab PO SCH (08:14)
--- NOTE | 2017-12-03 10:46 | CP.PCM.PN ---
Subjective - Date & Time of Evaluation Date of Evaluation: 12/03/17 Time of Evaluation: 09:10 - Subjective Subjective: Neurology Progress note: Pt seen and examined at bedside. No acute events overnight. Pt is still AAO x 1. Patient still appears to be confused and relatively encephalopathic. Denies any complaints or pain at this time. 12 Point ROS performed and negative other than stated above. Objective - Vital Signs/Intake and Output Vital Signs (last 24 hours): Temp Pulse Resp BP Pulse Ox 97.9 F 82 18 139/87 93 L 12/03/17 06:00 12/03/17 06:00 12/03/17 06:00 12/03/17 06:00 12/03/17 06:00 Intake and Output: 12/03/17 12/03/17 06:59 18:59 Intake Total 1580 120 Output Total 400 650 Balance 1180 -530 - Medications Medications: Current Medications Acetaminophen (Tylenol 325mg Tab) 650 mg PO Q6H PRN PRN Reason: Fever >100.4 F Aspirin (Ecotrin) 81 mg PO DAILY [facility] Last Admin: 12/02/17 12:00 Dose: 81 mg Atorvastatin Calcium (Lipitor) 40 mg PO DIN [facility] Last Admin: 12/02/17 17:12 Dose: 40 mg Clotrimazole (Lotrimin Af 1%) 0 ml TOP BID [facility] Last Admin: 12/02/17 17:12 Dose: Not Given Folic Acid (Folic Acid) 1 mg PO DAILY [facility] Last Admin: 12/02/17 09:56 Dose: 1 mg Heparin Sodium (Porcine) (Heparin) 5,000 units SC Q12 [facility] PRN Reason: Protocol Last Admin: 12/02/17 22:01 Dose: 5,000 units Hydralazine HCl (Apresoline) 10 mg IVP Q6 PRN PRN Reason: For SBP > 150 Last Admin: 12/02/17 17:08 Dose: 10 mg Vancomycin HCl (Vancomycin 1gm) 1 gm in 250 mls @ 167 mls/hr IVPB Q12H [facility] PRN Reason: Protocol Last Admin: 12/03/17 00:50 Dose: 167 mls/hr Piperacillin Sod/Tazobactam Sod (Zosyn 3.375 In Ns 100ml) 100 mls @ 200 mls/hr IVPB Q6 [facility] PRN Reason: Protocol Stop: 12/04/17 18:01 Last Admin: 12/03/17 05:22 Dose: 200 mls/hr Insulin Detemir (Levemir) 10 unit SC HS [facility] Last Admin: 12/02/17 22:02 Dose: 10 unit Insulin Human Regular (Humulin R High) 0 units SC ACHS [facility] PRN Reason: Protocol Last Admin: 12/03/17 08:13 Dose: 2 units Lorazepam (Ativan) 1 mg IVP Q6H PRN; Protocol PRN Reason: Anxiety Last Admin: 12/02/17 07:42 Dose: 1 mg Multivitamins/Minerals (Therapeutic-M Tab) 1 tab PO 0800 [facility] Last Admin: 12/03/17 08:14 Dose: 1 tab Pantoprazole Sodium (Protonix Ec Tab) 40 mg PO ACB [facility] Last Admin: 12/03/17 08:14 Dose: 40 mg Thiamine HCl (Vitamin B1 Tab) 100 mg PO DAILY [facility] Last Admin: 12/02/17 09:56 Dose: 100 mg - Labs Labs: 12/03/17 06:00 12/03/17 06:00 PT 13.2 SECONDS (9.4-12.5) H 11/29/17 10:57 INR 1.14 (0.93-1.08) H 11/29/17 10:57 APTT 28.3 Seconds (25.1-36.5) 11/30/17 05:30 - Constitutional Appears: No Acute Distress - Neurological Exam Neurological Exam: Alert, Awake. absent: Oriented x3 Neuro motor strength exam: Left Upper Extremity: 5, Right Upper Extremity: 5, Left Lower Extremity: 5, Right Lower Extremity: 5 Assessment and Plan - Assessment and Plan (Free Text) Assessment: 57 year old male with mostly unknown past medical history with presumed ETOH abuse presents with watershed ischemic stroke possibly 2/2 sepsis/hypotension, and AMS likely 2/2 toxic-metabolic encephalopathy. Plan: - Continue aspirin and statin - Repeat blood cultures negative - Antibiotics as per ID - MRI showed acute vs subacute lacunar infarct involving watershed areas promnant white matter abnormality with etiology metabolic vs demyelination - F/u echo with bubble study - Continue fluids with NS and avoid dextrose containing fluids. - EEGs - abnormal - L temporal slowing indicating structural abnormality and may also represent postictal slowing - Seizure precautions - Glycemic control with blood sugars 140-180 Case and plan was reviewed and discussed in detail with Dr Nevarez.
[2017-12-03] MEDS: Clotrimazole 1% Top Soln(10 ml) TOP SCH ×2 (10:52→17:01)
--- NOTE | 2017-12-03 18:46 | CP.PCM.PN ---
<Ryan White - Last Filed: 12/03/17 18:43> Subjective - Date & Time of Evaluation Date of Evaluation: 12/03/17 Time of Evaluation: 10:00 - Subjective Subjective: Medicine Progress Note: Patient seen and assessed at bedside. No acute events overnight noted by patient or nursing staff. Patient noted to have improving mental status and improved responsiveness during subjective exam. Patient denies any complaints at this time including fever, chills, headache, changes in his vision, chest pain, palpitations, SOB, cough, abdominal pain, N/V/D/C, or any urinary symptoms. Objective - Vital Signs/Intake and Output Vital Signs (last 24 hours): Temp Pulse Resp BP Pulse Ox 97.9 F 82 18 139/87 93 L 12/03/17 06:00 12/03/17 06:00 12/03/17 06:00 12/03/17 06:00 12/03/17 06:00 Intake and Output: 12/03/17 12/03/17 06:59 18:59 Intake Total 1580 720 Output Total 400 650 Balance 1180 70 - Medications Medications: Current Medications Acetaminophen (Tylenol 325mg Tab) 650 mg PO Q6H PRN PRN Reason: Fever >100.4 F Aspirin (Ecotrin) 81 mg PO DAILY [facility] Last Admin: 12/03/17 10:51 Dose: 81 mg Atorvastatin Calcium (Lipitor) 40 mg PO DIN [facility] Last Admin: 12/03/17 17:01 Dose: 40 mg Clotrimazole (Lotrimin Af 1%) 0 ml TOP BID [facility] Last Admin: 12/03/17 17:01 Dose: Not Given Folic Acid (Folic Acid) 1 mg PO DAILY [facility] Last Admin: 12/03/17 10:50 Dose: 1 mg Heparin Sodium (Porcine) (Heparin) 5,000 units SC Q12 [facility] PRN Reason: Protocol Last Admin: 12/03/17 10:48 Dose: 5,000 units Hydralazine HCl (Apresoline) 10 mg IVP Q6 PRN PRN Reason: For SBP > 150 Last Admin: 12/02/17 17:08 Dose: 10 mg Vancomycin HCl (Vancomycin 1gm) 1 gm in 250 mls @ 167 mls/hr IVPB Q12H [facility] PRN Reason: Protocol Last Admin: 12/03/17 14:30 Dose: 167 mls/hr Piperacillin Sod/Tazobactam Sod (Zosyn 3.375 In Ns 100ml) 100 mls @ 200 mls/hr IVPB Q6 [facility] PRN Reason: Protocol Stop: 12/04/17 18:01 Last Admin: 12/03/17 17:01 Dose: 200 mls/hr Insulin Detemir (Levemir) 10 unit SC HS [facility] Last Admin: 12/02/17 22:02 Dose: 10 unit Insulin Human Regular (Humulin R High) 0 units SC ACHS [facility] PRN Reason: Protocol Last Admin: 12/03/17 17:00 Dose: 2 units Lorazepam (Ativan) 1 mg IVP Q6H PRN; Protocol PRN Reason: Anxiety Last Admin: 12/02/17 07:42 Dose: 1 mg Multivitamins/Minerals (Therapeutic-M Tab) 1 tab PO 0800 [facility] Last Admin: 12/03/17 08:14 Dose: 1 tab Pantoprazole Sodium (Protonix Ec Tab) 40 mg PO ACB [facility] Last Admin: 12/03/17 08:14 Dose: 40 mg Thiamine HCl (Vitamin B1 Tab) 100 mg PO DAILY [facility] Last Admin: 12/03/17 10:51 Dose: 100 mg - Labs Labs: 12/03/17 06:00 12/03/17 06:00 PT 13.2 SECONDS (9.4-12.5) H 11/29/17 10:57 INR 1.14 (0.93-1.08) H 11/29/17 10:57 APTT 28.3 Seconds (25.1-36.5) 11/30/17 05:30 - Constitutional Appears: Non-toxic, No Acute Distress - Head Exam Head Exam: ATRAUMATIC, NORMOCEPHALIC - Eye Exam Eye Exam: EOMI, Normal appearance, PERRL - ENT Exam ENT Exam: Mucous Membranes Moist, Normal Exam - Neck Exam Neck Exam: Full ROM, Normal Inspection. absent: Lymphadenopathy - Respiratory Exam Respiratory Exam: Clear to Ausculation Bilateral, NORMAL BREATHING PATTERN. absent: Accessory Muscle Use, Rales, Rhonchi, Wheezes, Respiratory Distress - Cardiovascular Exam Cardiovascular Exam: REGULAR RHYTHM, RRR, +S1, +S2 - GI/Abdominal Exam GI & Abdominal Exam: Soft, Normal Bowel Sounds. absent: Tenderness - Extremities Exam Extremities Exam: Full ROM, Normal Capillary Refill. absent: Calf Tenderness, Joint Swelling, Normal Inspection, Pedal Edema Additional comments: Erythematous rash with skin sloughing and various areas of purulent discharge extending from right lateral thigh posteriorly to right gluteus region and anal cleft; noted to be improved from previous exam - Neurological Exam Neurological Exam: Alert, Awake. absent: Oriented x3 - Skin Skin Exam: Dry, Intact, Normal Color, Warm Assessment and Plan - Assessment and Plan (Free Text) Assessment: 57 year old male with an unknown past medical history who was brought in by ambulance after being found with an AMS and covered in feces in his apartment. His mental status has progressively improved since admission. He is currently on IV Vancomycin and Zozyn for coagulase negative staph and strep viridans bacteremia. Repeat blood cultures negative. An MRI Brain showed acute vs. subacute lacunar infarct in the left parietal region. Neurology is following and patient is on stroke prevention medication, including ASA and Lipitor. Plan: 1. Toxic-Metabolic Encephalopathy secondary to Strep Viridans/Coag Neg Staph Bacteremia -Brain MRI showed prominent white-matter signal abnormality of possible metabolic or demyelination etiologies, a possible acute or subacute lacunar infarct in the left parietal lobe and diffusely increased ventricular volume -EEG showed left temporal slowing indicating structural abnormality and may also represent postictal slowing -Initial blood cultures grew Strep Viridans/Coag Neg Staph -Repeat blood cultures negative for 48 hours -Continue IV Vancomycin and Zosyn -Tylenol PRN for fever -Lotrimin AF Ointment PRN -Wound Care referral -Neurology and ID consulted, all recommendations appreciated 2. Ischemic Stroke -See Brain MRI findings above -Echo with bubble study pending for endocarditis evaluation -ASA 81mg and Lipitor 40mg -Neurology consulted, all recommendations appreciated 3. History of Alcohol Abuse/Withdrawal -Ativan 1mg IVP Q6H PRN -PO Folate, Thiamine, and MV supplementation -CIWA Assessments -Fall, Seizure and Aspiration precautions 4. Hyperglycemia -SSI-High and Accuchecks ACHS -Levemir 10u HS -Carb Consistent Diet 5. HTN -Hydralazine 10mg IVP Q6 PRN GI Prophylaxis: Protonix DVT Prophylaxis: Heparin and SCD's Patient seen and case discussed with attending, Dr. Galo. <Sixto Galo - Last Filed: 12/04/17 07:25> Objective - Vital Signs/Intake and Output Vital Signs (last 24 hours): Temp Pulse Resp BP Pulse Ox 98.6 F 87 20 141/89 93 L 12/03/17 16:00 12/03/17 16:00 12/03/17 16:00 12/03/17 16:00 12/03/17 16:00 Intake and Output: 12/04/17 12/04/17 06:59 18:59 Intake Total 440 Balance 440 - Medications Medications: Current Medications Acetaminophen (Tylenol 325mg Tab) 650 mg PO Q6H PRN PRN Reason: Fever >100.4 F Aspirin (Ecotrin) 81 mg PO DAILY [facility] Last Admin: 12/03/17 10:51 Dose: 81 mg Atorvastatin Calcium (Lipitor) 40 mg PO DIN [facility] Last Admin: 12/03/17 17:01 Dose: 40 mg Clotrimazole (Lotrimin Af 1%) 0 ml TOP BID [facility] Last Admin: 12/03/17 17:01 Dose: Not Given Folic Acid (Folic Acid) 1 mg PO DAILY [facility] Last Admin: 12/03/17 10:50 Dose: 1 mg Heparin Sodium (Porcine) (Heparin) 5,000 units SC Q12 [facility] PRN Reason: Protocol Last Admin: 12/03/17 22:30 Dose: 5,000 units Hydralazine HCl (Apresoline) 10 mg IVP Q6 PRN PRN Reason: For SBP > 150 Last Admin: 12/02/17 17:08 Dose: 10 mg Vancomycin HCl (Vancomycin 1gm) 1 gm in 250 mls @ 167 mls/hr IVPB Q12H [facility] PRN Reason: Protocol Last Admin: 12/04/17 01:38 Dose: 167 mls/hr Piperacillin Sod/Tazobactam Sod (Zosyn 3.375 In Ns 100ml) 100 mls @ 200 mls/hr IVPB Q6 [facility] PRN Reason: Protocol Stop: 12/04/17 18:01 Last Admin: 12/04/17 05:41 Dose: 200 mls/hr Insulin Detemir (Levemir) 10 unit SC HS [facility] Last Admin: 12/03/17 22:30 Dose: 10 unit Insulin Human Regular (Humulin R High) 0 units SC ACHS [facility] PRN Reason: Protocol Last Admin: 12/03/17 22:30 Dose: Not Given Lorazepam (Ativan) 1 mg IVP Q6H PRN; Protocol PRN Reason: Anxiety Last Admin: 12/02/17 07:42 Dose: 1 mg Multivitamins/Minerals (Therapeutic-M Tab) 1 tab PO 0800 [facility] Last Admin: 12/03/17 08:14 Dose: 1 tab Pantoprazole Sodium (Protonix Ec Tab) 40 mg PO ACB [facility] Last Admin: 12/03/17 08:14 Dose: 40 mg Thiamine HCl (Vitamin B1 Tab) 100 mg PO DAILY [facility] Last Admin: 12/03/17 10:51 Dose: 100 mg - Labs Labs: 12/03/17 06:00 12/03/17 06:00 PT 13.2 SECONDS (9.4-12.5) H 11/29/17 10:57 INR 1.14 (0.93-1.08) H 11/29/17 10:57 APTT 28.3 Seconds (25.1-36.5) 11/30/17 05:30 Attending/Attestation - Attestation I have personally seen and examined this patient.: Yes I have fully participated in the care of the patient.: Yes I have reviewed all pertinent clinical information, including history, physical exam and plan: Yes Notes (Text): 12/03/17 57 year old male with past medical history of ETOH abuse who presented with altered mental status, hyperglycemia and RLE/buttock cellulitis. CT head reviewed as above with ?hydrocephalus. This was followed up with MRI which shows acute vs subacute infarct. Continue with aspirin and statin. Neurology is also following and PT evaluation is pending. EEG was reviewed as above. Alcohol level was negative. Urine drug screen is pending. Continue with multivitamin, folic acid and thiamine. Continue with iv antibiotics for RLE/buttock cellulitis. He is also on clotrimazole. ID is following. He has positive blood cultures x 2. Repeat blood cultures are negative to date. Echocardiogram was done this morning with pending report. Continue with insulin ss for diabetes. A1c level was elevated at 11.2 and patient is started on levemir. Will continue to monitor. Sixto Galo MD Hospitalist.
--- NOTE | 2017-12-03 22:23 | PN ---
DATE: 12/03/2017 SUBJECTIVE: The patient is in bed, in no acute distress, nontoxic. PHYSICAL EXAMINATION VITAL SIGNS: Temperature is 98, blood pressure is 130/80, respiratory rate of 18, heart rate of 85. HEENT: Unremarkable. NECK: Supple. LUNGS: Decreased breath sounds. HEART: Normal S1 and S2. ABDOMEN: Soft, nontender. LABORATORY DATA: Reveals a white count of 6.3, hemoglobin of 12, platelets of 208. BUN of 5, creatinine of 0.4. C-reactive protein is greater than 15. is positive. HIV 4th generation is nonreactive. The patient does have coag-negative staph and strep viridans. The repeat blood cultures are negative. ASSESSMENT AND PLAN: This is a 57-year-old male admitted with sepsis with coagulase-negative staphylococcus and Streptococcus viridans bacteremia, right-sided buttocks and back cellulitis, on vancomycin and Zosyn and the patient's echo is pending. Repeat blood cultures are negative. The patient has a sed rate of 60. C-reactive protein is greater than 15 and today is day #4 of vancomycin. We will order a vancomycin level. Pending echo results. Vancomycin is given at 1:45 in the afternoon. We will order a vancomycin trough level at 12:45 in the afternoon tomorrow. We will make further recommendations. Daniel Torres MD
[2017-12-03] MEDS: Insulin Detemir 100 units/ml Vial (Levemir) SC SCH (22:30)
[2017-12-04] MEDS: Piperacillin/Tazobact 3.375 gm 100 ML IVPB SCH ×3 (00:19→11:28)
[2017-12-04] MEDS: Vancomycin 1gm in NS 250ml 1 GM/250 ML BAG IVPB SCH ×2 (01:38→12:47)
[2017-12-04 07:51] LABS: BASO # 0.01 K/mm3 (0.0-2.0); BASO % 0.2 % (0.0-3.0); EOS # 0.1 (0.0-0.7); GRAN # 5.26 (1.4-6.5); GRAN % 83.3 % (50.0-68.0); HEMOGLOBIN 12.4 g/dL (14.0-18.0); LYMPH # 0.4 (1.2-3.4); LYMPH % 6.3 % (22.0-35.0); MEAN CORPUSCULAR HEMOGLOBIN 27.7 pg (25.0-35.0); MEAN CORPUSCULAR HGB CONC 32.5 g/dl (31.0-37.0); MEAN PLATELET VOLUME 9.7 fl (7.0-11.0); MONO # 0.6 (0.1-0.6); MONO % 9.2 % (1.0-6.0); RBC 4.48 10^6/uL (3.5-6.1); RED CELL DISTRIBUTION WIDTH 14.4 % (11.5-14.5); WHITE BLOOD COUNT 6.3 10^3/ul (4.5-11.0)
[2017-12-04] MEDS: Insulin Reg-HIGH-Coverage SC SCH ×4 (08:23→22:34)
--- NOTE | 2017-12-04 08:25 | CARD ---
APPROVED REPORT EXAM: Two-dimensional and M-mode echocardiogram with Doppler and color Doppler. Other Information Quality : FairRhythm : INDICATION R/O SBE 2D DIMENSIONS IVSd1.6 (0.7-1.1cm)LVDd4.9 (3.9-5.9cm) PWd1.3 (0.7-1.1cm)LVDs3.0 (2.5-4.0cm) FS (%) 20.3 % M-Mode DIMENSIONS Left Atrium (MM)3.60 (2.5-4.0cm)Aortic Root3.50 (2.2-3.7cm) Aortic Cusp Exc.2.00 (1.5-2.0cm) Aortic Valve AoV Peak Rtxirjvq880.0cm/s Mitral Valve MV E Iurbnwfu16.0cm/sMV A Mitqamqk815.0cm/sE/A ratio0.6 TDI Lateral E' Peak V4.39cm/sMedial E' Peak V3.80cm/sE/Lateral E'17.8 E/Medial E'20.5 Tricuspid Valve TR Peak [id number]/sRAP [id number] Peak Gr.29mmHg [id number] LEFT VENTRICLE The left ventricle is normal size. There is normal left ventricular wall thickness. The left ventricular function is normal. The left ventricular ejection fraction is within the normal range. There is normal LV segmental wall motion. RIGHT VENTRICLE The right ventricle is normal size. ATRIA The left atrium size is normal. The right atrium size is normal. The interatrial septum is intact with no evidence for an atrial septal defect. AORTIC VALVE The aortic valve is moderately calcified. MITRAL VALVE The mitral valve is mildly thickened but opens well. Mitral regurgitation is mild. TRICUSPID VALVE The tricuspid valve is normal in structure. There is mild tricuspid regurgitation. PULMONIC VALVE The pulmonic valve is not well visualized. GREAT VESSELS The aortic root is normal in size. PERICARDIAL EFFUSION There is no pericardial effusion. <Conclusion> Limited Study. The left ventricle is normal size. There is normal left ventricular wall thickness. Basal septal hypertrophy present. The left ventricular function is normal. The aortic valve is moderately calcified.Aortic sclerosis. Can not exclude vegetation on AV leaflet. Mitral regurgitation is mild. There is mild tricuspid regurgitation. The pulmonic valve is not well visualized.
[2017-12-04] MEDS: Pantoprazole 40 mg EC Tab PO SCH (08:39)
[2017-12-04 08:48] LABS: ALT/SGPT 49 U/L (7-56); AST/SGOT 38 U/L (17-59); BLOOD UREA NITROGEN 7 mg/dL (7-21); CALCIUM 9.1 mg/dL (8.4-10.5); GFR NON-AFRICAN AMERICAN > 60
[2017-12-04] MEDS: Multivitamin With Minerals Tab PO SCH (11:28)
[2017-12-04] MEDS: Clotrimazole 1% Top Soln(10 ml) TOP SCH ×3 (11:32→17:12)
[2017-12-04] MEDS ORDERED: Potassium Chloride 40 mEq/30 ml LIQ UD PO ONE (13:03)
--- NOTE | 2017-12-04 17:16 | CP.PCM.PN ---
<Ryan White - Last Filed: 12/04/17 17:12> Subjective - Date & Time of Evaluation Date of Evaluation: 12/04/17 Time of Evaluation: 17:13 - Subjective Subjective: Medicine Progress Note: Patient seen and assessed at bedside. No acute events overnight noted by patient or nursing staff. Patients mental status unchanged, with responsiveness in only single words. Patient denies any complaints at this time including fever , chills, headache, chest pain, SOB, cough, abdominal pain, N/V/D/C, or any urinary output changes. Objective - Vital Signs/Intake and Output Vital Signs (last 24 hours): Temp Pulse Resp BP Pulse Ox 98.4 F 105 H 20 171/86 H 93 L 12/04/17 16:55 12/04/17 16:55 12/04/17 16:55 12/04/17 16:55 12/04/17 16:55 Intake and Output: 12/04/17 12/04/17 06:59 18:59 Intake Total 440 120 Balance 440 120 - Medications Medications: Current Medications Acetaminophen (Tylenol 325mg Tab) 650 mg PO Q6H PRN PRN Reason: Fever >100.4 F Aspirin (Ecotrin) 81 mg PO DAILY [facility] Last Admin: 12/04/17 11:27 Dose: 81 mg Atorvastatin Calcium (Lipitor) 40 mg PO DIN [facility] Last Admin: 12/04/17 16:27 Dose: 40 mg Clotrimazole (Lotrimin Af 1%) 0 ml TOP BID [facility] Last Admin: 12/04/17 17:12 Dose: Not Given Folic Acid (Folic Acid) 1 mg PO DAILY [facility] Last Admin: 12/04/17 11:27 Dose: 1 mg Heparin Sodium (Porcine) (Heparin) 5,000 units SC Q12 [facility] PRN Reason: Protocol Last Admin: 12/04/17 11:29 Dose: 5,000 units Hydralazine HCl (Apresoline) 10 mg IVP Q6 PRN PRN Reason: For SBP > 150 Last Admin: 12/02/17 17:08 Dose: 10 mg Vancomycin HCl (Vancomycin 1gm) 1 gm in 250 mls @ 167 mls/hr IVPB Q12H [facility] PRN Reason: Protocol Last Admin: 12/04/17 12:47 Dose: 167 mls/hr Insulin Detemir (Levemir) 10 unit SC HS [facility] Last Admin: 12/03/17 22:30 Dose: 10 unit Insulin Human Regular (Humulin R High) 0 units SC ACHS [facility] PRN Reason: Protocol Last Admin: 12/04/17 16:27 Dose: 2 units Lorazepam (Ativan) 1 mg IVP Q6H PRN; Protocol PRN Reason: Anxiety Last Admin: 12/02/17 07:42 Dose: 1 mg Multivitamins/Minerals (Therapeutic-M Tab) 1 tab PO 0800 [facility] Last Admin: 12/04/17 11:28 Dose: 1 tab Pantoprazole Sodium (Protonix Ec Tab) 40 mg PO ACB [facility] Last Admin: 12/04/17 08:39 Dose: 40 mg Thiamine HCl (Vitamin B1 Tab) 100 mg PO DAILY [facility] Last Admin: 12/04/17 11:27 Dose: 100 mg - Labs Labs: 12/04/17 07:00 12/04/17 14:00 PT 13.2 SECONDS (9.4-12.5) H 11/29/17 10:57 INR 1.14 (0.93-1.08) H 11/29/17 10:57 APTT 28.3 Seconds (25.1-36.5) 11/30/17 05:30 - Constitutional Appears: Non-toxic, No Acute Distress - Head Exam Head Exam: ATRAUMATIC, NORMOCEPHALIC - Eye Exam Eye Exam: EOMI, Normal appearance, PERRL - ENT Exam ENT Exam: Mucous Membranes Moist, Normal Exam - Neck Exam Neck Exam: Full ROM, Normal Inspection. absent: Lymphadenopathy - Respiratory Exam Respiratory Exam: Clear to Ausculation Bilateral, NORMAL BREATHING PATTERN - Cardiovascular Exam Cardiovascular Exam: REGULAR RHYTHM, +S1, +S2. absent: Murmur - GI/Abdominal Exam GI & Abdominal Exam: Soft, Normal Bowel Sounds. absent: Tenderness - Extremities Exam Extremities Exam: Full ROM, Normal Capillary Refill. absent: Calf Tenderness, Pedal Edema - Neurological Exam Neurological Exam: Alert, Awake. absent: Oriented x3 - Skin Skin Exam: Dry, Intact, Normal Color, Warm Additional comments: Erythematous rash with skin sloughing extending from right lateral thigh posteriorly to right gluteus region and anal cleft; noted to be unchanged from previous exam Assessment and Plan - Assessment and Plan (Free Text) Assessment: 57 year old male with an unknown past medical history who was brought in by ambulance after being found with an AMS and covered in feces in his apartment. His mental status has progressively improved since admission. He is currently on IV Vancomycin and Zozyn for coagulase negative staph and strep viridans bacteremia. Repeat blood cultures negative. An MRI Brain showed acute vs. subacute lacunar infarct in the left parietal region. Neurology is following and patient is on stroke prevention medication, including ASA and Lipitor. Plan: 1. Toxic-Metabolic Encephalopathy secondary to Strep Viridans/Coag Neg Staph Bacteremia -Brain MRI showed prominent white-matter signal abnormality of possible metabolic or demyelination etiologies, a possible acute or subacute lacunar infarct in the left parietal lobe and diffusely increased ventricular volume -EEG showed left temporal slowing indicating structural abnormality and may also represent postictal slowing -Initial blood cultures grew Strep Viridans/Coag Neg Staph -Echo with bubble study showing calcified aortic valve with septic vegetations not excluded -Repeat blood cultures negative for 72 hours -Continue IV Vancomycin and Zosyn -Tylenol PRN for fever -Lotrimin AF Ointment PRN -Wound Care referral -Neurology and ID consulted, all recommendations appreciated 2. Ischemic Stroke -See Brain MRI findings above -ASA 81mg and Lipitor 40mg -Neurology consulted, all recommendations appreciated 3. History of Alcohol Abuse/Withdrawal -Ativan 1mg IVP Q6H PRN -PO Folate, Thiamine, and MV supplementation -CIWA Assessments -Fall, Seizure and Aspiration precautions 4. Hyperglycemia -SSI-High and Accuchecks ACHS -Levemir 10u HS -Carb Consistent Diet 5. HTN -Hydralazine 10mg IVP Q6 PRN GI Prophylaxis: Protonix DVT Prophylaxis: Heparin and SCD's Patient seen and case discussed with attending, Dr. Galo. <Sixto Galo - Last Filed: 12/04/17 17:30> Objective - Vital Signs/Intake and Output Vital Signs (last 24 hours): Temp Pulse Resp BP Pulse Ox 98.4 F 105 H 20 171/86 H 93 L 12/04/17 16:55 12/04/17 16:55 12/04/17 16:55 12/04/17 16:55 12/04/17 16:55 Intake and Output: 12/04/17 12/04/17 06:59 18:59 Intake Total 440 120 Balance 440 120 - Medications Medications: Current Medications Acetaminophen (Tylenol 325mg Tab) 650 mg PO Q6H PRN PRN Reason: Fever >100.4 F Aspirin (Ecotrin) 81 mg PO DAILY [facility] Last Admin: 12/04/17 11:27 Dose: 81 mg Atorvastatin Calcium (Lipitor) 40 mg PO DIN [facility] Last Admin: 12/04/17 16:27 Dose: 40 mg Clotrimazole (Lotrimin Af 1%) 0 ml TOP BID [facility] Last Admin: 12/04/17 17:12 Dose: Not Given Folic Acid (Folic Acid) 1 mg PO DAILY [facility] Last Admin: 12/04/17 11:27 Dose: 1 mg Heparin Sodium (Porcine) (Heparin) 5,000 units SC Q12 [facility] PRN Reason: Protocol Last Admin: 12/04/17 11:29 Dose: 5,000 units Hydralazine HCl (Apresoline) 10 mg IVP Q6 PRN PRN Reason: For SBP > 150 Last Admin: 12/02/17 17:08 Dose: 10 mg Vancomycin HCl (Vancomycin 1gm) 1 gm in 250 mls @ 167 mls/hr IVPB Q12H [facility] PRN Reason: Protocol Last Admin: 12/04/17 12:47 Dose: 167 mls/hr Insulin Detemir (Levemir) 10 unit SC HS [facility] Last Admin: 12/03/17 22:30 Dose: 10 unit Insulin Human Regular (Humulin R High) 0 units SC ACHS [facility] PRN Reason: Protocol Last Admin: 12/04/17 16:27 Dose: 2 units Lorazepam (Ativan) 1 mg IVP Q6H PRN; Protocol PRN Reason: Anxiety Last Admin: 12/02/17 07:42 Dose: 1 mg Multivitamins/Minerals (Therapeutic-M Tab) 1 tab PO 0800 [facility] Last Admin: 12/04/17 11:28 Dose: 1 tab Pantoprazole Sodium (Protonix Ec Tab) 40 mg PO ACB [facility] Last Admin: 12/04/17 08:39 Dose: 40 mg Thiamine HCl (Vitamin B1 Tab) 100 mg PO DAILY [facility] Last Admin: 12/04/17 11:27 Dose: 100 mg - Labs Labs: 12/04/17 07:00 12/04/17 14:00 PT 13.2 SECONDS (9.4-12.5) H 11/29/17 10:57 INR 1.14 (0.93-1.08) H 11/29/17 10:57 APTT 28.3 Seconds (25.1-36.5) 11/30/17 05:30 Attending/Attestation - Attestation I have personally seen and examined this patient.: Yes I have fully participated in the care of the patient.: Yes I have reviewed all pertinent clinical information, including history, physical exam and plan: Yes Notes (Text): 12/04/17 17:29 57 year old male with past medical history of ETOH abuse who presented with altered mental status, hyperglycemia and RLE/buttock cellulitis. CT head reviewed as above with ?hydrocephalus. This was followed up with MRI which shows acute vs subacute infarct. Continue with aspirin and statin. Neurology is also following. PT evaluation was appreciated. EEG was reviewed as above. Alcohol level was negative. Continue with multivitamin, folic acid and thiamine. Continue with iv antibiotics for RLE/buttock cellulitis. He is also on clotrimazole. ID is following. He has positive blood cultures x 2. Repeat blood cultures are negative to date. Will review echocardiogram report. Continue with insulin ss for diabetes. A1c level was elevated at 11.2 and patient is started on levemir. Will continue to monitor. Will replete and repeat potassium. Sixto Galo MD Hospitalist.
--- NOTE | 2017-12-04 19:24 | PN ---
DATE: 12/04/2017 SUBJECTIVE: Patient seen earlier this morning in room 363, bed 1. No fevers or chills. PHYSICAL EXAMINATION: VITAL SIGNS: Temperature is 98, blood pressure is 170/80, respiratory rate of 16. HEENT: Unremarkable. NECK: Supple. LUNGS: Decreased breath sounds. HEART: Normal S1, S2. ABDOMEN: Soft. LABORATORY EXAMINATION: Reveals a white count of 6.3, hemoglobin of 12.4, and platelets of 248. Chemistries reveal a BUN of 7, creatinine of 0.7, 0.5. Serology is nonreactive. Microbiology reveals repeat blood cultures are no growth. Patient's echo from the reveals noted. ASSESSMENT AND PLAN: A 57-year-old male with sepsis ,coagulase-negative staphylococci, Streptococcus viridans bacteremia with a right-sided buttocks and back cellulitis, on vancomycin day #5. Echo reveals cannot rule out vegetations on the aortic valve, rule out endocarditis. However, patient's blood cultures became negative within one day and two different organisms not readily consistent with endocarditis and patient had an MRI of the brain. Results are noted. Review of orders reveals the patient to be on vancomycin an d Zosyn. Patient's HIV is negative. C-reactive protein is elevated at greater than 15 and the sed rate is elevated at 60. Patient's vanco level is noted to be 10.[address] Galo's note is reviewed. Today is day #5 of at least 14 days of vancomycin for the staph epi bacteremia and strep viridans bacteremia. We will repeat a sed rate and C-reactive protein once weekly in few days and we will discontinue the Zosyn. We will follow closely with you. Daniel Torres MD
[2017-12-04] MEDS: Insulin Detemir 100 units/ml Vial (Levemir) SC SCH (22:34)
[2017-12-05] MEDS ORDERED: Vancomycin 1gm in NS 250ml 1 GM/250 ML BAG IVPB SCH (01:00)
--- NOTE | 2017-12-05 01:05 | CP.PCM.PN ---
Subjective - Date & Time of Evaluation Date of Evaluation: 12/05/17 Time of Evaluation: 00:56 - Subjective Subjective: I was called by RN at 11:25PM bedside for a temperature of 104.1, patient was at 98 during the day. Upon chart review, saw that patient has had cellulitis on buttocks and R side, with discontinued Zosyn and day #5/14 Vanc, which had fallen off. I ordered stat Urine Cultures, Blood Cultures X 2, Chest X Ray, Procalcitonin, Light hydration with NS at 100 mls/hour, Sputum culture. On exam , patient was disoriented and altered, but can follow commands, turned over when I asked him to. Per discussion with RN, this is how patient has been since his stay here. Patient is diaphoretic. Will follow closely, asked RN to page me as needed. Objective - Vital Signs/Intake and Output Vital Signs (last 24 hours): Temp Pulse Resp BP Pulse Ox 104.2 F H 119 H 24 172/94 H 88 L 12/04/17 23:12 12/04/17 23:12 12/04/17 23:12 12/04/17 23:12 12/04/17 23:12 Intake and Output: 12/04/17 12/05/17 18:59 06:59 Intake Total 120 540 Balance 120 540 - Medications Medications: Current Medications Acetaminophen (Tylenol 325mg Tab) 650 mg PO Q6H PRN PRN Reason: Fever >100.4 F Last Admin: 12/04/17 22:49 Dose: 650 mg Aspirin (Ecotrin) 81 mg PO DAILY [facility] Last Admin: 12/04/17 11:27 Dose: 81 mg Atorvastatin Calcium (Lipitor) 40 mg PO DIN [facility] Last Admin: 12/04/17 16:27 Dose: 40 mg Clotrimazole (Lotrimin Af 1%) 0 ml TOP BID [facility] Last Admin: 12/04/17 17:12 Dose: Not Given Folic Acid (Folic Acid) 1 mg PO DAILY [facility] Last Admin: 12/04/17 11:27 Dose: 1 mg Heparin Sodium (Porcine) (Heparin) 5,000 units SC Q12 [facility] PRN Reason: Protocol Last Admin: 12/04/17 22:32 Dose: 5,000 units Hydralazine HCl (Apresoline) 10 mg IVP Q6 PRN PRN Reason: For SBP > 150 Last Admin: 12/02/17 17:08 Dose: 10 mg Vancomycin HCl (Vancomycin 1gm) 1 gm in 250 mls @ 167 mls/hr IVPB Q12H [facility] PRN Reason: Protocol Last Admin: 12/04/17 12:47 Dose: 167 mls/hr Sodium Chloride (Sodium Chloride 0.9%) 1,000 mls @ 100 mls/hr IV .Q10H [facility] Vancomycin HCl (Vancomycin 1gm) 1 gm in 250 mls @ 167 mls/hr IVPB Q12H [facility] PRN Reason: Protocol Piperacillin Sod/Tazobactam Sod (Zosyn 3.375 In Ns 100ml) 100 mls @ 200 mls/hr IVPB Q6 [facility] PRN Reason: Protocol Stop: 12/05/17 12:29 Insulin Detemir (Levemir) 10 unit SC HS [facility] Last Admin: 12/04/17 22:34 Dose: 10 unit Insulin Human Regular (Humulin R High) 0 units SC ACHS [facility] PRN Reason: Protocol Last Admin: 12/04/17 22:34 Dose: Not Given Lorazepam (Ativan) 1 mg IVP Q6H PRN; Protocol PRN Reason: Anxiety Last Admin: 12/02/17 07:42 Dose: 1 mg Multivitamins/Minerals (Therapeutic-M Tab) 1 tab PO 0800 [facility] Last Admin: 12/04/17 11:28 Dose: 1 tab Pantoprazole Sodium (Protonix Ec Tab) 40 mg PO ACB [facility] Last Admin: 12/04/17 08:39 Dose: 40 mg Thiamine HCl (Vitamin B1 Tab) 100 mg PO DAILY [facility] Last Admin: 12/04/17 11:27 Dose: 100 mg - Labs Labs: 12/04/17 07:00 12/04/17 14:00 PT 13.2 SECONDS (9.4-12.5) H 11/29/17 10:57 INR 1.14 (0.93-1.08) H 11/29/17 10:57 APTT 28.3 Seconds (25.1-36.5) 11/30/17 05:30
[2017-12-05] MEDS: Sodium Chloride 0.9% 1,000 ML IV SCH ×2 (01:34→11:08)
[2017-12-05] MEDS: Piperacillin/Tazobact 3.375 gm 100 ML IVPB SCH ×2 (02:09→08:01)
[2017-12-05] MEDS: Vancomycin 1gm in NS 250ml 1 GM/250 ML BAG IVPB SCH ×3 (02:55→22:51)
[2017-12-05 04:21] LABS: BASO # 0.02 K/mm3 (0.0-2.0); BASO % 0.2 % (0.0-3.0); EOS % 0.1 % (1.5-5.0); GRAN # 7.41 (1.4-6.5); GRAN % 80.8 % (50.0-68.0); HEMOGLOBIN 13.3 g/dL (14.0-18.0); LYMPH # 1.1 (1.2-3.4); LYMPH % 11.5 % (22.0-35.0); MEAN CORPUSCULAR HEMOGLOBIN 27.8 pg (25.0-35.0); MEAN CORPUSCULAR HGB CONC 32.4 g/dl (31.0-37.0); MEAN PLATELET VOLUME 9.9 fl (7.0-11.0); MONO # 0.7 (0.1-0.6); MONO % 7.4 % (1.0-6.0); RBC 4.78 10^6/uL (3.5-6.1); RED CELL DISTRIBUTION WIDTH 14.9 % (11.5-14.5); WHITE BLOOD COUNT 9.2 10^3/ul (4.5-11.0)
[2017-12-05 04:50] LABS: ALB/GLOB RATIO 0.9 (1.1-1.8); ALBUMIN 3.3 g/dL (3.0-4.8); ALT/SGPT 63 U/L (7-56); AST/SGOT 67 U/L (17-59); BLOOD UREA NITROGEN 8 mg/dL (7-21); GFR NON-AFRICAN AMERICAN > 60
[2017-12-05] MEDS ORDERED: Piperacillin/Tazobact 3.375 gm 100 ML IVPB SCH (06:00)
[2017-12-05] MEDS: Pantoprazole 40 mg EC Tab PO SCH (07:59)
[2017-12-05] MEDS: Multivitamin With Minerals Tab PO SCH (07:59)
[2017-12-05] MEDS: Insulin Reg-HIGH-Coverage SC SCH ×4 (07:59→21:38)
--- NOTE | 2017-12-05 09:41 | RAD ---
HISTORY: SIRS X 2 COMPARISON: No prior. FINDINGS: LUNGS: Slight increased/ coarsened interstitial markings; rule out the sequela of reactive/inflammatory airway disease or viral illness PLEURA: No significant pleural effusion identified, no pneumothorax apparent. CARDIOVASCULAR: Normal. OSSEOUS STRUCTURES: No significant abnormalities. VISUALIZED UPPER ABDOMEN: Normal. OTHER FINDINGS: None. IMPRESSION: Slight increased/ coarsened interstitial markings; rule out the sequela of reactive/inflammatory airway disease or viral illness
[2017-12-05] MEDS: Clotrimazole 1% Top Soln(10 ml) TOP SCH (09:44)
--- NOTE | 2017-12-05 15:46 | CP.PCM.PN ---
<Ryan White - Last Filed: 12/05/17 17:50> Subjective - Date & Time of Evaluation Date of Evaluation: 12/05/17 Time of Evaluation: 15:26 - Subjective Subjective: Medicine Progress Note: Patient seen and assessed at bedside. Patient noted to have a fever overnight of 104.1. The nocturnal medicine team was notified, tylenol was given and stat labs, chest x-ray, blood and urine cultures were ordered. Patients uncooperative with todays exam, which may indicate regressing mental status. Patient awake, with spontaneous eye opening, spontaneously moving all extremities, and follows simple commands but verbally unresponsive to ROS questioning. Objective - Vital Signs/Intake and Output Vital Signs (last 24 hours): Temp Pulse Resp BP Pulse Ox 98.7 F 101 H 15 143/88 93 L 12/05/17 14:00 12/05/17 12:00 12/05/17 12:00 12/05/17 12:00 12/05/17 12:00 Intake and Output: 12/05/17 12/05/17 06:59 18:59 Intake Total 1440 Balance 1440 - Medications Medications: Current Medications Acetaminophen (Tylenol 325mg Tab) 650 mg PO Q6H PRN PRN Reason: Fever >100.4 F Last Admin: 12/05/17 11:08 Dose: 650 mg Aspirin (Ecotrin) 81 mg PO DAILY [facility] Last Admin: 12/05/17 09:33 Dose: 81 mg Atorvastatin Calcium (Lipitor) 40 mg PO DIN [facility] Last Admin: 12/04/17 16:27 Dose: 40 mg Folic Acid (Folic Acid) 1 mg PO DAILY [facility] Last Admin: 12/05/17 09:33 Dose: 1 mg Heparin Sodium (Porcine) (Heparin) 5,000 units SC Q12 [facility] PRN Reason: Protocol Last Admin: 12/05/17 09:33 Dose: 5,000 units Hydralazine HCl (Apresoline) 10 mg IVP Q6 PRN PRN Reason: For SBP > 150 Last Admin: 12/02/17 17:08 Dose: 10 mg Sodium Chloride (Sodium Chloride 0.9%) 1,000 mls @ 100 mls/hr IV .Q10H [facility] Last Admin: 12/05/17 11:08 Dose: 100 mls/hr Vancomycin HCl (Vancomycin 1gm) 1 gm in 250 mls @ 167 mls/hr IVPB Q12 [facility] PRN Reason: Protocol Last Admin: 12/05/17 09:33 Dose: 167 mls/hr Ibuprofen (Motrin Tab) 400 mg PO Q6H PRN PRN Reason: Fever >100.4 F Insulin Detemir (Levemir) 10 unit SC HS [facility] Last Admin: 12/04/17 22:34 Dose: 10 unit Insulin Human Regular (Humulin R High) 0 units SC ACHS [facility] PRN Reason: Protocol Last Admin: 12/05/17 12:17 Dose: 1 units Lorazepam (Ativan) 1 mg IVP Q6H PRN; Protocol PRN Reason: Anxiety Last Admin: 12/02/17 07:42 Dose: 1 mg Multivitamins/Minerals (Therapeutic-M Tab) 1 tab PO 0800 [facility] Last Admin: 12/05/17 07:59 Dose: 1 tab Pantoprazole Sodium (Protonix Ec Tab) 40 mg PO ACB [facility] Last Admin: 12/05/17 07:59 Dose: 40 mg Thiamine HCl (Vitamin B1 Tab) 100 mg PO DAILY [facility] Last Admin: 12/05/17 09:33 Dose: 100 mg - Labs Labs: 12/05/17 04:00 12/05/17 04:00 PT 13.2 SECONDS (9.4-12.5) H 11/29/17 10:57 INR 1.14 (0.93-1.08) H 11/29/17 10:57 APTT 28.3 Seconds (25.1-36.5) 11/30/17 05:30 - Constitutional Appears: No Acute Distress - Head Exam Head Exam: ATRAUMATIC, NORMOCEPHALIC - Eye Exam Eye Exam: EOMI, Normal appearance - ENT Exam ENT Exam: Mucous Membranes Moist - Neck Exam Neck Exam: absent: Lymphadenopathy - Respiratory Exam Respiratory Exam: Clear to Ausculation Bilateral, NORMAL BREATHING PATTERN. absent: Accessory Muscle Use, Rales, Rhonchi, Wheezes, Respiratory Distress - Cardiovascular Exam Cardiovascular Exam: REGULAR RHYTHM, RRR, +S1, +S2 - GI/Abdominal Exam GI & Abdominal Exam: Soft, Normal Bowel Sounds. absent: Distended, Firm, Guarding, Tenderness - Extremities Exam Extremities Exam: Normal Capillary Refill. absent: Calf Tenderness, Pedal Edema Additional comments: Erythematous rash with skin sloughing extending from right lateral thigh posteriorly to right gluteus region and anal cleft - Neurological Exam Neurological Exam: Altered, Awake. absent: Alert - Skin Skin Exam: Dry, Warm Assessment and Plan - Assessment and Plan (Free Text) Assessment: 57 year old male with an unknown past medical history who was brought in by ambulance after being found with an AMS and covered in feces in his apartment. His mental status has progressively improved since admission. He is currently on IV Vancomycin and Zozyn for coagulase negative staph and strep viridans bacteremia. Repeat blood cultures negative. An MRI Brain showed acute vs. subacute lacunar infarct in the left parietal region. Neurology is following and patient is on stroke prevention medication. Patient continues to have fevers while on antibiotic therapy and noted to have an echo with bubble study that couldn't rule out septic vegetations of the aortic valve. ID is following and recommends continuing antibiotics. Plan: 1. Toxic-Metabolic Encephalopathy secondary to Strep Viridans/Coag Neg Staph Bacteremia -Brain MRI showed prominent white-matter signal abnormality of possible metabolic or demyelination etiologies, a possible acute or subacute lacunar infarct in the left parietal lobe and diffusely increased ventricular volume -EEG showed left temporal slowing indicating structural abnormality and may also represent postictal slowing -Initial blood cultures grew Strep Viridans/Coag Neg Staph -Echo with bubble study showing calcified aortic valve with septic vegetations not excluded -Patient continues to have fevers and tachycardia but without tachypnea or leukocytosis -Repeat blood cultures negative for four days -Started IV Merrem 1gm Q8 -Continue IV Vancomycin -Motrin 400mg Q6 PRN -Tylenol PRN on hold in setting of transaminitis -Wound Care referral -Continue to reposition Q2 -Neurology and ID consulted, all recommendations appreciated 2. Ischemic Stroke -See Brain MRI findings above -ASA 81mg -Lipitor 40mg on hold in setting of transaminitis -Neurology consulted, all recommendations appreciated 3. Transaminitis -Noted to have transaminitis on CMP -Hepatitis panel pending -Holding hepatotoxic medications -Continue to monitor with daily CMP's 4. History of Alcohol Abuse/Withdrawal -Ativan 1mg IVP Q6H PRN -PO Folate, Thiamine, and MV supplementation -CIWA Assessments -Fall, Seizure and Aspiration precautions 5. Hyperglycemia -SSI-High and Accuchecks ACHS -Levemir 10u HS -Carb Consistent Diet 6. HTN -Hydralazine 10mg IVP Q6 PRN GI Prophylaxis: Protonix DVT Prophylaxis: Heparin and SCD's Patient seen and case discussed with attending, Dr. Galo. <Sixto Galo - Last Filed: 12/06/17 07:23> Objective - Vital Signs/Intake and Output Vital Signs (last 24 hours): Temp Pulse Resp BP Pulse Ox 101.9 F H 111 H 19 185/93 H 90 L 12/06/17 06:00 12/06/17 06:00 12/06/17 06:00 12/06/17 06:00 12/06/17 06:00 Intake and Output: 12/06/17 12/06/17 06:59 18:59 Intake Total 2990 Balance 2990 - Medications Medications: Current Medications Acetaminophen (Tylenol 325mg Tab) 650 mg PO Q6H PRN PRN Reason: Fever >100.4 F Last Admin: 12/05/17 11:08 Dose: 650 mg Aspirin (Ecotrin) 81 mg PO DAILY [facility] Last Admin: 12/05/17 09:33 Dose: 81 mg Atorvastatin Calcium (Lipitor) 40 mg PO DIN [facility] Last Admin: 12/04/17 16:27 Dose: 40 mg Folic Acid (Folic Acid) 1 mg PO DAILY [facility] Last Admin: 12/05/17 09:33 Dose: 1 mg Heparin Sodium (Porcine) (Heparin) 5,000 units SC Q12 [facility] PRN Reason: Protocol Last Admin: 12/05/17 21:36 Dose: 5,000 units Hydralazine HCl (Apresoline) 10 mg IVP Q6 PRN PRN Reason: For SBP > 150 Last Admin: 12/02/17 17:08 Dose: 10 mg Sodium Chloride (Sodium Chloride 0.9%) 1,000 mls @ 100 mls/hr IV .Q10H [facility] Last Admin: 12/06/17 06:14 Dose: 100 mls/hr Vancomycin HCl (Vancomycin 1gm) 1 gm in 250 mls @ 167 mls/hr IVPB Q12 [facility] PRN Reason: Protocol Last Admin: 12/05/17 22:51 Dose: 167 mls/hr Meropenem/Sodium Chloride (Meropenem 1g/Ns 100ml Ivpb) 1 gm in 100 mls @ 100 mls/hr IVPB Q8 [facility] PRN Reason: Protocol Stop: 12/14/17 22:01 Last Admin: 12/06/17 06:32 Dose: 100 mls/hr Ibuprofen (Motrin Tab) 400 mg PO Q6H PRN PRN Reason: Fever >100.4 F Insulin Detemir (Levemir) 10 unit SC HS [facility] Last Admin: 12/05/17 21:38 Dose: 10 unit Insulin Human Regular (Humulin R High) 0 units SC ACHS [facility] PRN Reason: Protocol Last Admin: 12/05/17 21:38 Dose: Not Given Lorazepam (Ativan) 1 mg IVP Q6H PRN; Protocol PRN Reason: Anxiety Last Admin: 12/02/17 07:42 Dose: 1 mg Multivitamins/Minerals (Therapeutic-M Tab) 1 tab PO 0800 [facility] Last Admin: 12/05/17 07:59 Dose: 1 tab Pantoprazole Sodium (Protonix Ec Tab) 40 mg PO ACB [facility] Last Admin: 12/05/17 07:59 Dose: 40 mg Thiamine HCl (Vitamin B1 Tab) 100 mg PO DAILY [facility] Last Admin: 12/05/17 09:33 Dose: 100 mg - Labs Labs: 12/05/17 04:00 12/05/17 04:00 PT 13.2 SECONDS (9.4-12.5) H 11/29/17 10:57 INR 1.14 (0.93-1.08) H 11/29/17 10:57 APTT 28.3 Seconds (25.1-36.5) 11/30/17 05:30 Attending/Attestation - Attestation I have personally seen and examined this patient.: Yes I have fully participated in the care of the patient.: Yes I have reviewed all pertinent clinical information, including history, physical exam and plan: Yes Notes (Text): 12/05/17 57 year old male with past medical history of ETOH abuse who presented with altered mental status, hyperglycemia and RLE/buttock cellulitis. CT head reviewed as above with ?hydrocephalus. This was followed up with MRI which shows acute vs subacute infarct. Continue with aspirin. Neurology is also following. PT evaluation was appreciated. EEG was reviewed as above. Alcohol level was negative. Continue with multivitamin, folic acid and thiamine. Continue with iv antibiotics for RLE/buttock cellulitis. He is also on clotrimazole. ID is following. He has positive blood cultures x 2. Repeat blood cultures are negative to date. Will review echocardiogram with ID. Continue with insulin ss and levemir for diabetes. Patient is now beginning to have fever overnight and elevated LFTs today. Case discussed with ID and CT chest/abd/pelvis and hepatitis panel is ordered. Statin on hold for now. Sixto Galo MD Hospitalist.
[2017-12-05] MEDS ORDERED: Iohexol 240 (50 ml) ONE (17:31)
--- NOTE | 2017-12-05 21:36 | CT ---
EXAM: CT Chest Without Intravenous Contrast CLINICAL HISTORY: 57 years old, male; Signs and symptoms; Fever; Additional info: Temp 103 - R/O pna TECHNIQUE: Axial computed tomography images of the chest without intravenous contrast. All CT scans at this facility use one or more dose reduction techniques, viz.: automated exposure control; ma/kV adjustment per patient size (including targeted exams where dose is matched to indication; i.e. head); or iterative reconstruction technique. Coronal and sagittal reformatted images were created and reviewed. COMPARISON: No relevant prior studies available. FINDINGS: Limitations: Lack of intravenous contrast. Motion artifact - mild to moderate. Lungs: Mild atelectasis/scarring. Scattered mild patchy groundglass and nodular airspace opacities, most pronounced left lower lobe. Small cyst or bulla right upper lobe. Pleural space: No pneumothorax. No significant effusion. Heart: Borderline cardiomegaly. No significant pericardial effusion. Coronary artery calcifications. Bones/joints: Mild degenerative changes of spine. No acute fracture. Soft tissues: Unremarkable. Vasculature: Mild atherosclerotic disease. Lymph nodes: No pathologically enlarged lymph nodes. IMPRESSION: 1. Probable multifocal pneumonia. Followup to resolution to exclude underlying pathology. 2. Incidental/non-acute findings are described above. EXAM: CT Abdomen and Pelvis Without Intravenous Contrast CLINICAL HISTORY: 57 years old, male; Signs and symptoms; Fever; Additional info: Temp 103 - R/O pna TECHNIQUE: Axial computed tomography images of the abdomen and pelvis without intravenous contrast. All CT scans at this facility use one or more dose reduction techniques, viz.: automated exposure control; ma/kV adjustment per patient size (including targeted exams where dose is matched to indication; i.e. head); or iterative reconstruction technique. Coronal and sagittal reformatted images were created and reviewed. COMPARISON: No relevant prior studies available. FINDINGS: Limitations: Lack of intravenous contrast. Motion artifact - mild to moderate. Streak artifact - mild. ABDOMEN: Liver: Fatty infiltration. Gallbladder and bile ducts: Calcified gallstones. No significant ductal dilation. Pancreas: Unremarkable. No ductal dilation. Spleen: Small splenic calcification. No splenomegaly. Adrenals: No mass. Kidneys and ureters: Mild stranding about kidneys, nonspecific. Punctate calculus within LEFT kidney. No hydronephrosis. Stomach and bowel: 7.5 x 2.0 cm intraluminal mural based soft tissue density along rectosigmoid colon. No definite mural thickening. No obstruction. Appendix: No findings to suggest acute appendicitis. PELVIS: Bladder: Unremarkable. No stones. Reproductive: Unremarkable as visualized. ABDOMEN and PELVIS: Intraperitoneal space: No significant fluid collection. No free air. Bones/joints: Early degenerative changes of spine. No acute fracture. Probable bone islands. Soft tissues: Tiny umbilical hernia containing fat. Small RIGHT inguinal hernia containing fat. Vasculature: Mild atherosclerotic disease. No aneurysm. Lymph nodes: No pathologically enlarged lymph nodes. IMPRESSION: 1. Soft tissue lesion within rectosigmoid colon. Malignancy not excluded. Recommend colonoscopy. 2. Cholelithiasis. 3. Incidental/non-acute findings are described above.
[2017-12-05] MEDS: Insulin Detemir 100 units/ml Vial (Levemir) SC SCH (21:38)
[2017-12-05] MEDS: Meropenem 1g/NS 100mL IVPB 1 GM/100 ML PIGGYBACK IVPB SCH (21:40)
--- NOTE | 2017-12-05 21:41 | PN ---
DATE: 12/05/2017 SUBJECTIVE: The patient is seen earlier today. He is comfortable. He did have fevers earlier. There has been no diarrhea reported, no abdominal pain. PHYSICAL EXAMINATION: VITAL SIGNS: Temperature is 98, T-max is 103, blood pressure is 140/80, respiratory rate of 18, heart rate of 101. HEENT: Unremarkable. NECK: Supple. LUNGS: Have decreased breath sounds. HEART: Normal S1 and S2. ABDOMEN: Soft, nontender. LABORATORY DATA: Reveals a white count of 9.2, hemoglobin of 13, platelets of 232. Chemistries reveals the patient has BUN of 8, creatinine of 0.6. Vancomycin trough is 10.3. Serology; HIV serology is negative and blood cultures are strep viridans and coag-negative staph in one bottle. Repeat blood cultures are negative. The patient had a chest x-ray this morning, which was read by Dr. Aníbal Bernstein, increased coarse interstitial markings, rule out sequelae of a reactive/inflammatory air disease or viral illness. Review of the chest x-ray myself noted difficult to read the left border since it is a portable x-ray alone. ASSESSMENT AND PLAN: This is a 57-year-old male admitted with sepsis with coagulase-negative staphylococcus and streptococcus viridans bacteremia; right-sided buttocks and back cellulitis which has greatly improved. Currently on vancomycin day #5, and another temperature of 103. We will order a CAT scan of the chest and a CAT scan of the abdomen and pelvis. Repeat pancultures. We will start meropenem. Procalcitonin is 0.28. On vancomycin, meropenem. Repeat pancultures, CAT scan. Concerned about gallbladder disease in this patient, we will also order an ultrasound of the biliary tree. The patient's wound is clean and at this point is much improved, not responsible for this temperature of 103. The patient's vancomycin trough level of 10.3 yesterday. Endocarditis is still in the differential diagnosis. MRI of the head is noted. We will follow closely with you. Daniel Torres MD
[2017-12-06] MEDS: Sodium Chloride 0.9% 1,000 ML IV SCH (06:14)
[2017-12-06] MEDS: Meropenem 1g/NS 100mL IVPB 1 GM/100 ML PIGGYBACK IVPB SCH ×3 (06:32→22:58)
[2017-12-06 06:49] LABS: BASO # 0.01 K/mm3 (0.0-2.0); BASO % 0.1 % (0.0-3.0); EOS % 0.1 % (1.5-5.0); GRAN # 7.63 (1.4-6.5); GRAN % 85.2 % (50.0-68.0); LYMPH # 0.9 (1.2-3.4); LYMPH % 9.7 % (22.0-35.0); MEAN CELL VOLUME 84.4 fl (80.0-105.0); MEAN CORPUSCULAR HEMOGLOBIN 27.5 pg (25.0-35.0); MEAN CORPUSCULAR HGB CONC 32.6 g/dl (31.0-37.0); MEAN PLATELET VOLUME 9.7 fl (7.0-11.0); MONO # 0.4 (0.1-0.6); MONO % 4.9 % (1.0-6.0); RBC 4.22 10^6/uL (3.5-6.1); RED CELL DISTRIBUTION WIDTH 14.9 % (11.5-14.5)
[2017-12-06 07:28] LABS: HEMOGLOBIN 11.6 g/dL (14.0-18.0)
[2017-12-06 07:31] LABS: ALB/GLOB RATIO 0.9 (1.1-1.8); ALBUMIN 2.6 g/dL (3.0-4.8); ALT/SGPT 52 U/L (7-56); AST/SGOT 49 U/L (17-59); BLOOD UREA NITROGEN 8 mg/dL (7-21); CALCIUM 8.3 mg/dL (8.4-10.5); GFR NON-AFRICAN AMERICAN > 60
[2017-12-06] MEDS ORDERED: Potassium Chloride 20 mEq ER Tab PO STA ×2 (08:05)
[2017-12-06] MEDS: Insulin Reg-HIGH-Coverage SC SCH ×4 (08:20→22:58)
[2017-12-06 08:37] LABS: HEPATITIS B SURFACE AG Negative (NEGATIVE)
[2017-12-06 08:43] LABS: HEPATITIS A IGM NEGATIVE (NEGATIVE); HEPATITIS B CORE AB NEGATIVE (NEGATIVE)
[2017-12-06 08:54] LABS: HEPATITIS C ANTIBODY NEGATIVE (NEGATIVE)
--- NOTE | 2017-12-06 10:45 | US ---
HISTORY: r/o gb/ bili ds COMPARISON: 12/05/ CT. TECHNIQUE: Sonographic evaluation of the abdomen. FINDINGS: LIVER: Measures 20 cm. Heterogeneous echogenicity of the liver parenchyma. Liver lesions in the right hepatic lobe measuring 4.1 and 3.1 centimeters. GALLBLADDER: Multiple gallstones and sludge. COMMON BILE DUCT: Measures mm. No stones. No dilatation. PANCREAS: Unremarkable as visualized. No mass. No ductal dilatation. RIGHT KIDNEY: Measures cm. Normal echogenicity. No calculus, mass, or hydronephrosis. LEFT KIDNEY: Measures cm. Normal echogenicity. No calculus, mass, or hydronephrosis. SPLEEN: Normal in size and contour. No mass. AORTA: No aneurysmal dilatation. IVC: Unremarkable. OTHER FINDINGS: None. IMPRESSION: Nonspecific right hepatic masses measuring up to 4 centimeter; metastases are not excluded. Correlate with contrast-enhanced MRI Hepatomegaly. Cholelithiasis.
[2017-12-06] MEDS: Multivitamin With Minerals Tab PO SCH (11:00)
[2017-12-06] MEDS: Pantoprazole 40 mg EC Tab PO SCH (11:00)
[2017-12-06] MEDS: Vancomycin 1gm in NS 250ml 1 GM/250 ML BAG IVPB SCH ×2 (11:03→23:57)
--- NOTE | 2017-12-06 11:24 | CP.PCM.CON ---
<Miguel Dc - Last Filed: 12/06/17 12:04> History of Present Illness - History of Present Illness History of Present Illness: GI Consult note - Miguel Dc PGY2 HPI: Patient is a 57yo male with unknown past medical history that presented to [facility] with altered mental status. History was obtained from chart review due to patient status. Per chart, patient was found by his brother covered in feces at his home after having been missing for over a week. On arrival to the ED, he was noted to have leukocytosis of 17, lactate of 2.8 and heart rate of 131. A code sepsis was called and a stat head CT was obtained which revealed dilated ventricles which may represent central atrophy vs hydrocephalus. Neurology was consulted and a sepsis workup was initiated. He was started on broad spectrum antibiotics. Blood cultures were positive for strep viridans and coag negative staph. A CT chest/abdomen/pelvis revealed probable multifocal pneumonia, fatty liver infiltration and a 7.5cm x 2.0cm intramural soft tissue density along the rectosigmoid colon, no obstructions and no definite mural thickening. Per records, patient [place] [facility] [place] GI consulted for evaluation fo rectosigmoid mass. 12point ROS limited due to patient status PMHx: unobtainable PSHx: unobtainable Allergies: unobtainable Social Hx: unobtainable Family Hx: unobtainable Endo history: unobtainable Past Patient History - Infectious Disease Hx of Infectious Diseases: None - Tetanus Immunizations Tetanus Immunization: Unknown - Past Social History Smoking Status: Unknown If Ever Smoked - CARDIAC Hx Cardiac Disorders: (UNKNOWN) - PULMONARY Hx Respiratory Disorders: (UNKNOWN) - NEUROLOGICAL Hx Neurological Disorder: No (UNKNOWN) - HEENT Hx HEENT Problems: No (UNKNOWN) - RENAL Hx Chronic Kidney Disease: No (UNKNOWN) - ENDOCRINE/METABOLIC Hx Endocrine Disorders: No (UNKNOWN) - HEMATOLOGICAL/ONCOLOGICAL Hx Blood Disorders: No (UNKNOWN) - INTEGUMENTARY Hx Dermatological Problems: Yes Other/Comment: 11-29-17 ERYTHEMATOUS RASH WITH SKIN SLOUGHED IN VARIOUS AREAS. EXTENDING TO RIGHT THIGH.BILATERAL GROIN AREA AND BILATERAL BUTTOCKS AND SACRAL AREA WITH IASD. INFLAMED SKIN RED. BILATERAL LE WITH NUMEROUS DRY SCABBED WOUND.BILATERAL KNEE ABRASION. - MUSCULOSKELETAL/RHEUMATOLOGICAL Hx Musculoskeletal Disorders: Yes Hx Falls: Yes - GASTROINTESTINAL Hx Gastrointestinal Disorders: No - GENITOURINARY/GYNECOLOGICAL Hx Genitourinary Disorders: Yes Hx Incontinence: Yes - PSYCHIATRIC Hx Depression: No Hx Emotional Abuse: No Hx Physical Abuse: No Hx Substance Use: (unable to obtain) - SURGICAL HISTORY Hx Surgeries: No (UNKNOWN) Meds Allergies/Adverse Reactions: Allergies Allergy/AdvReac Type Severity Reaction Status Date / Time Unobtainable Allergy Verified 11/29/17 19:43 - Medications Medications: Current Medications Acetaminophen (Tylenol 325mg Tab) 650 mg PO Q6H PRN PRN Reason: Fever >100.4 F Last Admin: 12/05/17 11:08 Dose: 650 mg Aspirin (Ecotrin) 81 mg PO DAILY ON LICENSE OF [facility] Last Admin: 12/05/17 09:33 Dose: 81 mg Atorvastatin Calcium (Lipitor) 40 mg PO DIN ON LICENSE OF [facility] Last Admin: 12/04/17 16:27 Dose: 40 mg Folic Acid (Folic Acid) 1 mg PO DAILY ON LICENSE OF [facility] Last Admin: 12/05/17 09:33 Dose: 1 mg Heparin Sodium (Porcine) (Heparin) 5,000 units SC Q12 ON LICENSE OF [facility] PRN Reason: Protocol Last Admin: 12/05/17 21:36 Dose: 5,000 units Hydralazine HCl (Apresoline) 10 mg IVP Q6 PRN PRN Reason: For SBP > 150 Last Admin: 12/02/17 17:08 Dose: 10 mg Sodium Chloride (Sodium Chloride 0.9%) 1,000 mls @ 100 mls/hr IV .Q10H ON LICENSE OF [facility] Last Admin: 12/06/17 06:14 Dose: 100 mls/hr Vancomycin HCl (Vancomycin 1gm) 1 gm in 250 mls @ 167 mls/hr IVPB Q12 ON LICENSE OF [facility] PRN Reason: Protocol Last Admin: 12/05/17 22:51 Dose: 167 mls/hr Meropenem/Sodium Chloride (Meropenem 1g/Ns 100ml Ivpb) 1 gm in 100 mls @ 100 mls/hr IVPB Q8 ON LICENSE OF [facility] PRN Reason: Protocol Stop: 12/14/17 22:01 Last Admin: 12/06/17 06:32 Dose: 100 mls/hr Ibuprofen (Motrin Tab) 400 mg PO Q6H PRN PRN Reason: Fever >100.4 F Insulin Detemir (Levemir) 10 unit SC HS ON LICENSE OF [facility] Last Admin: 12/05/17 21:38 Dose: 10 unit Insulin Human Regular (Humulin R High) 0 units SC ACHS YOLI PRN Reason: Protocol Last Admin: 12/05/17 21:38 Dose: Not Given Lorazepam (Ativan) 1 mg IVP Q6H PRN; Protocol PRN Reason: Anxiety Last Admin: 12/02/17 07:42 Dose: 1 mg Multivitamins/Minerals (Therapeutic-M Tab) 1 tab PO 0800 YOLI Last Admin: 12/05/17 07:59 Dose: 1 tab Pantoprazole Sodium (Protonix Ec Tab) 40 mg PO ACB YOLI Last Admin: 12/05/17 07:59 Dose: 40 mg Thiamine HCl (Vitamin B1 Tab) 100 mg PO DAILY ON LICENSE OF [facility] Last Admin: 12/05/17 09:33 Dose: 100 mg Physical Exam - Constitutional Appears: Confused, Cachectic, Chronically Ill - Head Exam Head Exam: ATRAUMATIC, NORMOCEPHALIC - Eye Exam Eye Exam: EOMI Pupil Exam: PERRL - ENT Exam ENT Exam: Mucous Membranes Moist - Respiratory Exam Respiratory Exam: absent: Rales, Rhonchi, Wheezes - Cardiovascular Exam Cardiovascular Exam: +S1, +S2. absent: Gallop, JVD, Rubs - GI/Abdominal Exam GI & Abdominal Exam: Soft. absent: Distended, Firm, Guarding, Rebound, Rigid - Rectal Exam Additional comments: no palpable mass soft brown stool no gross blood - Extremities Exam Extremities exam: Negative for: pedal edema - Neurological Exam Neurological exam: Alert - Skin Skin Exam: Dry, Intact, Normal Color, Warm Additional comments: sacral decubitus Results - Vital Signs Recent Vital Signs: Last Vital Signs Temp 101.9 F H 12/06/17 06:00 Pulse 111 H 12/06/17 06:00 Resp 19 12/06/17 06:00 BP 185/93 H 12/06/17 06:00 Pulse Ox 90 L 12/06/17 06:00 - Labs Result Diagrams: 12/06/17 05:40 12/06/17 05:40 Labs: Laboratory Results - last 24 hr 12/05/17 12/05/17 12/05/17 01:00 06:30 11:30 WBC RBC Hgb Hct MCV MCH MCHC RDW Plt Count MPV Gran % Lymph % (Auto) [place] % (Auto) Eos % (Auto) Baso % (Auto) Gran # Lymph # (Auto) [place] # (Auto) Eos # (Auto) Baso # (Auto) Sodium Potassium Chloride Carbon Dioxide Anion Gap BUN Creatinine Est GFR ( Amer) Est GFR (Non-Af Amer) POC Glucose (mg/dL) 167 H Random Glucose Calcium Total Bilirubin AST ALT Alkaline Phosphatase Total Protein Albumin Globulin Albumin/Globulin Ratio Procalcitonin 0.28 Hepatitis A IgM Ab Negative Hep Bs Antigen Negative Hep B Core IgM Ab Negative Hepatitis C Antibody Negative 12/05/17 12/05/17 12/06/17 16:02 21:18 05:40 WBC 9.0 RBC 4.22 Hgb 11.6 L Hct 35.6 L MCV 84.4 MCH 27.5 MCHC 32.6 RDW 14.9 H Plt Count 176 MPV 9.7 Gran % 85.2 H Lymph % (Auto) 9.7 L [place] % (Auto) 4.9 Eos % (Auto) 0.1 L Baso % (Auto) 0.1 Gran # 7.63 H Lymph # (Auto) 0.9 L [place] # (Auto) 0.4 Eos # (Auto) 0.0 Baso # (Auto) 0.01 Sodium Potassium Chloride Carbon Dioxide Anion Gap BUN Creatinine Est GFR ( Amer) Est GFR (Non-Af Amer) POC Glucose (mg/dL) 161 H 163 H Random Glucose Calcium Total Bilirubin AST ALT Alkaline Phosphatase Total Protein Albumin Globulin Albumin/Globulin Ratio Procalcitonin Hepatitis A IgM Ab Hep Bs Antigen Hep B Core IgM Ab Hepatitis C Antibody 12/06/17 12/06/17 05:40 07:15 WBC RBC Hgb Hct MCV MCH MCHC RDW Plt Count MPV Gran % Lymph % (Auto) [place] % (Auto) Eos % (Auto) Baso % (Auto) Gran # Lymph # (Auto) [place] # (Auto) Eos # (Auto) Baso # (Auto) Sodium 137 Potassium 2.8 L* D Chloride 102 Carbon Dioxide 25 Anion Gap 14 BUN 8 Creatinine 0.4 L Est GFR ( Amer) > 60 Est GFR (Non-Af Amer) > 60 POC Glucose (mg/dL) 125 H Random Glucose 147 H Calcium 8.3 L Total Bilirubin 0.4 AST 49 ALT 52 Alkaline Phosphatase 138 H Total Protein 5.7 L Albumin 2.6 L Globulin 3.1 Albumin/Globulin Ratio 0.9 L Procalcitonin Hepatitis A IgM Ab Hep Bs Antigen Hep B Core IgM Ab Hepatitis C Antibody Assessment & Plan - Assessment and Plan (Free Text) Plan: 57yo male with unknown history presents with altered mental status secondary to toxic metabolic encephalopthy/ischemic stroke 1. Rectosigmoid mass 2. Hepatic mass 3. Sepsis 2/2 multifocal pneumonia 4. Ischemic stroke 5. Toxic metabolic encephalopathy 6. Bacteremia Plan: -CT Chest/Abdomen/Pelvis reviewed; revealed a 7.2x2.0cm rectosigmoid intramural soft tissue density (see full report for further details) -Abdominal US reviewed; revealed nonspecific right hepatic masses measuring up to 4cm; metastases are not excluded; hepatomegaly, cholelithiasis -Flexible sigmoidoscopy/Colonoscopy to be arranged prior to patient discharge; Continue current medical management for the time being -Hepatitis panel negative -Rectal exam revealed no palpable masses or gross blood -Follow up neurology recommendations regarding AMS <Jarad Tejada - Last Filed: 12/06/17 14:40> Meds - Medications Medications: Current Medications Acetaminophen (Tylenol 325mg Tab) 650 mg PO Q6H PRN PRN Reason: Fever >100.4 F Last Admin: 12/05/17 11:08 Dose: 650 mg Aspirin (Ecotrin) 81 mg PO DAILY ON LICENSE OF [facility] Last Admin: 12/06/17 11:00 Dose: 81 mg Atorvastatin Calcium (Lipitor) 40 mg PO DIN ON LICENSE OF [facility] Last Admin: 12/04/17 16:27 Dose: 40 mg Folic Acid (Folic Acid) 1 mg PO DAILY ON LICENSE OF [facility] Last Admin: 12/06/17 11:00 Dose: 1 mg Heparin Sodium (Porcine) (Heparin) 5,000 units SC Q12 YOLI PRN Reason: Protocol Last Admin: 12/06/17 11:02 Dose: 5,000 units Hydralazine HCl (Apresoline) 10 mg IVP Q6 PRN PRN Reason: For SBP > 150 Last Admin: 12/06/17 11:01 Dose: 10 mg Sodium Chloride (Sodium Chloride 0.9%) 1,000 mls @ 100 mls/hr IV .Q10H ON LICENSE OF [facility] Last Admin: 12/06/17 06:14 Dose: 100 mls/hr Vancomycin HCl (Vancomycin 1gm) 1 gm in 250 mls @ 167 mls/hr IVPB Q12 YOLI PRN Reason: Protocol Last Admin: 12/06/17 11:03 Dose: 167 mls/hr Meropenem/Sodium Chloride (Meropenem 1g/Ns 100ml Ivpb) 1 gm in 100 mls @ 100 mls/hr IVPB Q8 YOLI PRN Reason: Protocol Stop: 12/14/17 22:01 Last Admin: 12/06/17 13:11 Dose: 100 mls/hr Ibuprofen (Motrin Tab) 400 mg PO Q6H PRN PRN Reason: Fever >100.4 F Last Admin: 12/06/17 13:11 Dose: 400 mg Insulin Detemir (Levemir) 10 unit SC HS YOLI Last Admin: 12/05/17 21:38 Dose: 10 unit Insulin Human Regular (Humulin R High) 0 units SC ACHS YOLI PRN Reason: Protocol Last Admin: 12/06/17 11:09 Dose: 2 units Lorazepam (Ativan) 1 mg IVP Q6H PRN; Protocol PRN Reason: Anxiety Last Admin: 12/02/17 07:42 Dose: 1 mg Multivitamins/Minerals (Therapeutic-M Tab) 1 tab PO 0800 ON LICENSE OF [facility] Last Admin: 12/06/17 11:00 Dose: 1 tab Oseltamivir Phosphate (Tamiflu Cap) 75 mg PO BID YOLI PRN Reason: Protocol Stop: 12/11/17 12:59 Pantoprazole Sodium (Protonix Ec Tab) 40 mg PO ACB ON LICENSE OF [facility] Last Admin: 12/06/17 11:00 Dose: 40 mg Thiamine HCl (Vitamin B1 Tab) 100 mg PO DAILY ON LICENSE OF [facility] Last Admin: 12/06/17 11:00 Dose: 100 mg Results - Vital Signs Recent Vital Signs: Last Vital Signs Temp 103 F H 12/06/17 13:11 Pulse 110 H 12/06/17 11:01 Resp 19 12/06/17 06:00 BP 186/96 H 12/06/17 11:01 Pulse Ox 90 L 12/06/17 06:00 - Labs Result Diagrams: 12/06/17 05:40 12/06/17 05:40 Labs: Laboratory Results - last 24 hr 12/05/17 12/05/17 12/05/17 01:00 06:30 16:02 WBC RBC Hgb Hct MCV MCH MCHC RDW Plt Count MPV Gran % Lymph % (Auto) [place] % (Auto) Eos % (Auto) Baso % (Auto) Gran # Lymph # (Auto) [place] # (Auto) Eos # (Auto) Baso # (Auto) Sodium Potassium Chloride Carbon Dioxide Anion Gap BUN Creatinine Est GFR ( Amer) Est GFR (Non-Af Amer) POC Glucose (mg/dL) 161 H Random Glucose Calcium Total Bilirubin AST ALT Alkaline Phosphatase Total Protein Albumin Globulin Albumin/Globulin Ratio Carcinoembryonic Ag Procalcitonin 0.28 Hepatitis A IgM Ab Negative Hep Bs Antigen Negative Hep B Core IgM Ab Negative Hepatitis C Antibody Negative Influenza Typ A,B (EIA) 12/05/17 12/06/17 12/06/17 21:18 05:40 05:40 WBC 9.0 RBC 4.22 Hgb 11.6 L Hct 35.6 L MCV 84.4 MCH 27.5 MCHC 32.6 RDW 14.9 H Plt Count 176 MPV 9.7 Gran % 85.2 H Lymph % (Auto) 9.7 L [place] % (Auto) 4.9 Eos % (Auto) 0.1 L Baso % (Auto) 0.1 Gran # 7.63 H Lymph # (Auto) 0.9 L [place] # (Auto) 0.4 Eos # (Auto) 0.0 Baso # (Auto) 0.01 Sodium 137 Potassium 2.8 L* D Chloride 102 Carbon Dioxide 25 Anion Gap 14 BUN 8 Creatinine 0.4 L Est GFR ( Amer) > 60 Est GFR (Non-Af Amer) > 60 POC Glucose (mg/dL) 163 H Random Glucose 147 H Calcium 8.3 L Total Bilirubin 0.4 AST 49 ALT 52 Alkaline Phosphatase 138 H Total Protein 5.7 L Albumin 2.6 L Globulin 3.1 Albumin/Globulin Ratio 0.9 L Carcinoembryonic Ag Procalcitonin Hepatitis A IgM Ab Hep Bs Antigen Hep B Core IgM Ab Hepatitis C Antibody Influenza Typ A,B (EIA) 12/06/17 12/06/17 12/06/17 07:15 11:08 12:15 WBC RBC Hgb Hct MCV MCH MCHC RDW Plt Count MPV Gran % Lymph % (Auto) [place] % (Auto) Eos % (Auto) Baso % (Auto) Gran # Lymph # (Auto) [place] # (Auto) Eos # (Auto) Baso # (Auto) Sodium Potassium Chloride Carbon Dioxide Anion Gap BUN Creatinine Est GFR ( Amer) Est GFR (Non-Af Amer) POC Glucose (mg/dL) 125 H 193 H Random Glucose Calcium Total Bilirubin AST ALT Alkaline Phosphatase Total Protein Albumin Globulin Albumin/Globulin Ratio Carcinoembryonic Ag 32.2 H Procalcitonin Hepatitis A IgM Ab Hep Bs Antigen Hep B Core IgM Ab Hepatitis C Antibody Influenza Typ A,B (EIA) 12/06/17 12:15 WBC RBC Hgb Hct MCV MCH MCHC RDW Plt Count MPV Gran % Lymph % (Auto) [place] % (Auto) Eos % (Auto) Baso % (Auto) Gran # Lymph # (Auto) [place] # (Auto) Eos # (Auto) Baso # (Auto) Sodium Potassium Chloride Carbon Dioxide Anion Gap BUN Creatinine Est GFR ( Amer) Est GFR (Non-Af Amer) POC Glucose (mg/dL) Random Glucose Calcium Total Bilirubin AST ALT Alkaline Phosphatase Total Protein Albumin Globulin Albumin/Globulin Ratio Carcinoembryonic Ag Procalcitonin Hepatitis A IgM Ab Hep Bs Antigen Hep B Core IgM Ab Hepatitis C Antibody Influenza Typ A,B (EIA) Pos for influenza a H Attending/Attestation - Attestation I have personally seen and examined this patient.: Yes I have fully participated in the care of the patient.: Yes I have reviewed all pertinent clinical information: Yes Notes (Text): 12/06/17 14:33 I have seen and examined patient with GI fellow and medical services coordinator. Agree with above documentation with the following additions. In brief, this is a 57 year old male with unknown past medical history who was brought to hospital after being found by brother lethargic, minimally responsive, and covered in feces at home. Patient is unable to participate in meaningful conversation, additional information obtained via chart review, discussion with nursing staff , and conversation with patient family member. Apparently his brother had lost contact with patient for over 1 week before he was eventually found. GI called for evaluation of abnormal CT imaging showing possible colonic mass lesion. On arrival to hospital patient found to be septic, currently undergoing treatment for pneumonia. Unknown prior endoscopic evaluation. Additional physical examination: Abdomen: no palpable hepato/splenomegaly Sepsis, bacteremia Multifocal pneumonia Altered mental status CT imaging reviewed by me showing large >7 cm distal colon lesion. US imaging shows multiple hepatic lesions concerning for metastatic disease. - NPO - Continue with antibiotic therapy as per ID - Concern for potential endocarditis given findings on echo with ?valvular lesions - Follow up neurology recommendations - Obtain viral hepatitis, AFP, and CEA levels - Patient would require endoscopic evaluation for tissue diagnosis of suspected colonic neoplasm, will defer procedure for time being until infectious and neurologic workup are complete and patient is medically optimized. Will continue to monitor patient clinical course.
--- NOTE | 2017-12-06 15:12 | CP.PCM.PN ---
<Ryan White - Last Filed: 12/06/17 14:51> Subjective - Date & Time of Evaluation Date of Evaluation: 12/06/17 Time of Evaluation: 14:52 - Subjective Subjective: Medicine Progress Note: Patient seen and assessed at bedside. Patient noted to have a fever to 101.3 this AM for which motrin was given. No other events noted overnight. Patient awake and spontaneously moving all extremities but verbally unresponsive to ROS questioning. Objective - Vital Signs/Intake and Output Vital Signs (last 24 hours): Temp Pulse Resp BP Pulse Ox 103 F H 110 H 19 186/96 H 90 L 12/06/17 13:11 12/06/17 11:01 12/06/17 06:00 12/06/17 11:01 12/06/17 06:00 Intake and Output: 12/06/17 12/06/17 06:59 18:59 Intake Total 2990 720 Balance 2990 720 - Medications Medications: Current Medications Acetaminophen (Tylenol 325mg Tab) 650 mg PO Q6H PRN PRN Reason: Fever >100.4 F Last Admin: 12/05/17 11:08 Dose: 650 mg Aspirin (Ecotrin) 81 mg PO DAILY [facility] Last Admin: 12/06/17 11:00 Dose: 81 mg Atorvastatin Calcium (Lipitor) 40 mg PO DIN [facility] Last Admin: 12/04/17 16:27 Dose: 40 mg Folic Acid (Folic Acid) 1 mg PO DAILY [facility] Last Admin: 12/06/17 11:00 Dose: 1 mg Heparin Sodium (Porcine) (Heparin) 5,000 units SC Q12 [facility] PRN Reason: Protocol Last Admin: 12/06/17 11:02 Dose: 5,000 units Hydralazine HCl (Apresoline) 10 mg IVP Q6 PRN PRN Reason: For SBP > 150 Last Admin: 12/06/17 11:01 Dose: 10 mg Sodium Chloride (Sodium Chloride 0.9%) 1,000 mls @ 100 mls/hr IV .Q10H [facility] Last Admin: 12/06/17 06:14 Dose: 100 mls/hr Vancomycin HCl (Vancomycin 1gm) 1 gm in 250 mls @ 167 mls/hr IVPB Q12 [facility] PRN Reason: Protocol Last Admin: 12/06/17 11:03 Dose: 167 mls/hr Meropenem/Sodium Chloride (Meropenem 1g/Ns 100ml Ivpb) 1 gm in 100 mls @ 100 mls/hr IVPB Q8 [facility] PRN Reason: Protocol Stop: 12/14/17 22:01 Last Admin: 12/06/17 13:11 Dose: 100 mls/hr Ibuprofen (Motrin Tab) 400 mg PO Q6H PRN PRN Reason: Fever >100.4 F Last Admin: 12/06/17 13:11 Dose: 400 mg Insulin Detemir (Levemir) 10 unit SC HS [facility] Last Admin: 12/05/17 21:38 Dose: 10 unit Insulin Human Regular (Humulin R High) 0 units SC ACHS [facility] PRN Reason: Protocol Last Admin: 12/06/17 11:09 Dose: 2 units Lorazepam (Ativan) 1 mg IVP Q6H PRN; Protocol PRN Reason: Anxiety Last Admin: 12/02/17 07:42 Dose: 1 mg Multivitamins/Minerals (Therapeutic-M Tab) 1 tab PO 0800 [facility] Last Admin: 12/06/17 11:00 Dose: 1 tab Oseltamivir Phosphate (Tamiflu Cap) 75 mg PO BID [facility] PRN Reason: Protocol Stop: 12/11/17 12:59 Pantoprazole Sodium (Protonix Ec Tab) 40 mg PO ACB [facility] Last Admin: 12/06/17 11:00 Dose: 40 mg Thiamine HCl (Vitamin B1 Tab) 100 mg PO DAILY [facility] Last Admin: 12/06/17 11:00 Dose: 100 mg - Labs Labs: 12/06/17 05:40 12/06/17 05:40 PT 13.2 SECONDS (9.4-12.5) H 11/29/17 10:57 INR 1.14 (0.93-1.08) H 11/29/17 10:57 APTT 28.3 Seconds (25.1-36.5) 11/30/17 05:30 - Constitutional Appears: Older Than Stated Age, Chronically Ill - Head Exam Head Exam: ATRAUMATIC, NORMOCEPHALIC - Eye Exam Eye Exam: EOMI, PERRL - ENT Exam ENT Exam: Mucous Membranes Moist - Neck Exam Neck Exam: absent: Lymphadenopathy - Respiratory Exam Respiratory Exam: Rhonchi (Trace; LLL), NORMAL BREATHING PATTERN. absent: Accessory Muscle Use, Chest Wall Tenderness, Decreased Breath Sounds, Clear to Ausculation Bilateral, Prolonged Expiratory Phase, Rales, Wheezes, Respiratory Distress, Stridor - Cardiovascular Exam Cardiovascular Exam: Tachycardia, REGULAR RHYTHM, +S1, +S2 - GI/Abdominal Exam GI & Abdominal Exam: Soft, Normal Bowel Sounds. absent: Distended, Firm, Guarding, Rigid, Tenderness, Rebound - Extremities Exam Extremities Exam: Normal Capillary Refill. absent: Calf Tenderness, Joint Swelling, Pedal Edema - Neurological Exam Neurological Exam: Altered, Awake. absent: Alert - Skin Skin Exam: Dry, Warm. absent: Intact Additional comments: Erythematous rash extending from right lateral thigh to anal cleft; two stage 2 sacral decubitus ulcers of right lateral thigh and right gluteal region Assessment and Plan - Assessment and Plan (Free Text) Assessment: 57 year old male with an unknown past medical history who was brought in by ambulance after being found with an AMS and covered in feces in his apartment. His mental status has progressively improved since admission. He is currently on IV Vancomycin and Zozyn for coagulase negative staph and strep viridans bacteremia. Repeat blood cultures negative. An MRI Brain showed acute vs. subacute lacunar infarct in the left parietal region. Neurology is following and patient is on stroke prevention medication. Patient continues to have fevers while on antibiotic therapy and noted to have an echo with bubble study that couldn't rule out septic vegetations of the aortic valve. ID is following and recommends continuing antibiotics. Cardiology was consulted for TAHIR evaluation to rule out endocarditis and septic vegetations. Patient was found to have new colonic mass and multifocal pneumonia on CT chest/abdomen/pelvis and concerns for metastatic disease of the liver on abdominal ultrasound. GI was consulted. Plan: 1. Toxic-Metabolic Encephalopathy secondary to Strep Viridans/Coag Neg Staph Bacteremia -Brain MRI showed prominent white-matter signal abnormality of possible metabolic or demyelination etiologies, a possible acute or subacute lacunar infarct in the left parietal lobe and diffusely increased ventricular volume -EEG showed left temporal slowing indicating structural abnormality and may also represent postictal slowing -Echo with bubble study showing calcified aortic valve with septic vegetations not excluded -Initial blood cultures grew Strep Viridans/Coag Neg Staph -Pending recommendations for TAHIR by cardiology -Patient continues to have fevers and tachycardia but without tachypnea or leukocytosis -Repeat blood cultures negative for 24 hours -Continue IV Vancomycin and Merrem -Motrin 400mg Q6 PRN -Cardiology, Neurology and ID consulted, all recommendations appreciated 2. New Colonic Neoplasm -CT Chest/Abdomen/Pelvis showed 7.2x2.0cm rectosigmoid intramural soft tissue density that is suspicious for malignancy -Abdominal U/S showed nonspecific right hepatic masses measuring up to 4cm; metastases are not excluded; hepatomegaly, cholelithiasis -CEA elevated -AFP Pending -GI consulted, all recommendations appreciated 3. Multifocal Pneumonia -CT Chest/Abdomen/Pelvis showed probable multifocal pneumonia with abnormal findings in LLL and RUL; See full report for details -Currently on IV Vancomycin and Merrem -ID consulted, all recommendations appreciated 4. Ischemic Stroke -See Brain MRI findings above -ASA 81mg and Lipitor 40mg -Neurology consulted, all recommendations appreciated 5. Transaminitis -Resolved -See abdominal U/S findings above -Hepatitis panel negative -Continue to monitor with daily CMP's 6. History of Alcohol Abuse/Withdrawal -Ativan 1mg IVP Q6H PRN -PO Folate, Thiamine, and MV supplementation -Fall, Seizure and Aspiration precautions 7. Hyperglycemia -SSI-High and Accuchecks ACHS -Levemir 10u HS -Carb Consistent Diet 8. HTN -Hydralazine 10mg IVP Q6 PRN 9. Stage 2 Sacral Decubitus Ulcers -Continue wound care -Continue Q2 repositioning GI Prophylaxis: Protonix DVT Prophylaxis: Heparin and SCD's Patient seen and case discussed with attending, Dr. Galo. <Sixto Galo - Last Filed: 12/06/17 15:34> Objective - Vital Signs/Intake and Output Vital Signs (last 24 hours): Temp Pulse Resp BP Pulse Ox 103 F H 110 H 19 186/96 H 90 L 12/06/17 13:11 12/06/17 11:01 12/06/17 06:00 12/06/17 11:01 12/06/17 06:00 Intake and Output: 12/06/17 12/06/17 06:59 18:59 Intake Total 2990 720 Balance 2990 720 - Medications Medications: Current Medications Acetaminophen (Tylenol 325mg Tab) 650 mg PO Q6H PRN PRN Reason: Fever >100.4 F Last Admin: 12/05/17 11:08 Dose: 650 mg Aspirin (Ecotrin) 81 mg PO DAILY [facility] Last Admin: 12/06/17 11:00 Dose: 81 mg Atorvastatin Calcium (Lipitor) 40 mg PO DIN [facility] Last Admin: 12/04/17 16:27 Dose: 40 mg Folic Acid (Folic Acid) 1 mg PO DAILY [facility] Last Admin: 12/06/17 11:00 Dose: 1 mg Heparin Sodium (Porcine) (Heparin) 5,000 units SC Q12 [facility] PRN Reason: Protocol Last Admin: 12/06/17 11:02 Dose: 5,000 units Hydralazine HCl (Apresoline) 10 mg IVP Q6 PRN PRN Reason: For SBP > 150 Last Admin: 12/06/17 11:01 Dose: 10 mg Sodium Chloride (Sodium Chloride 0.9%) 1,000 mls @ 100 mls/hr IV .Q10H [facility] Last Admin: 12/06/17 06:14 Dose: 100 mls/hr Vancomycin HCl (Vancomycin 1gm) 1 gm in 250 mls @ 167 mls/hr IVPB Q12 [facility] PRN Reason: Protocol Last Admin: 12/06/17 11:03 Dose: 167 mls/hr Meropenem/Sodium Chloride (Meropenem 1g/Ns 100ml Ivpb) 1 gm in 100 mls @ 100 mls/hr IVPB Q8 [facility] PRN Reason: Protocol Stop: 12/14/17 22:01 Last Admin: 12/06/17 13:11 Dose: 100 mls/hr Ibuprofen (Motrin Tab) 400 mg PO Q6H PRN PRN Reason: Fever >100.4 F Last Admin: 12/06/17 13:11 Dose: 400 mg Insulin Detemir (Levemir) 10 unit SC HS [facility] Last Admin: 12/05/17 21:38 Dose: 10 unit Insulin Human Regular (Humulin R High) 0 units SC ACHS [facility] PRN Reason: Protocol Last Admin: 12/06/17 11:09 Dose: 2 units Lorazepam (Ativan) 1 mg IVP Q6H PRN; Protocol PRN Reason: Anxiety Last Admin: 12/02/17 07:42 Dose: 1 mg Multivitamins/Minerals (Therapeutic-M Tab) 1 tab PO 0800 [facility] Last Admin: 12/06/17 11:00 Dose: 1 tab Oseltamivir Phosphate (Tamiflu Cap) 75 mg PO BID [facility] PRN Reason: Protocol Stop: 12/11/17 12:59 Pantoprazole Sodium (Protonix Ec Tab) 40 mg PO ACB [facility] Last Admin: 12/06/17 11:00 Dose: 40 mg Thiamine HCl (Vitamin B1 Tab) 100 mg PO DAILY [facility] Last Admin: 12/06/17 11:00 Dose: 100 mg - Labs Labs: 12/06/17 05:40 12/06/17 05:40 PT 13.2 SECONDS (9.4-12.5) H 11/29/17 10:57 INR 1.14 (0.93-1.08) H 11/29/17 10:57 APTT 28.3 Seconds (25.1-36.5) 11/30/17 05:30 Attending/Attestation - Attestation I have personally seen and examined this patient.: Yes I have fully participated in the care of the patient.: Yes I have reviewed all pertinent clinical information, including history, physical exam and plan: Yes Notes (Text): 12/06/17 15:27 57 year old male with past medical history of ETOH abuse who presented with altered mental status, hyperglycemia and RLE/buttock cellulitis. CT head reviewed as above with ?hydrocephalus. This was followed up with MRI which shows acute vs subacute infarct. Continue with aspirin. Statin was held due to elevated LFTs which have improved ; consider resuming if LFTs remain stable. Neurology is also following. PT evaluation was appreciated. EEG was reviewed as above. Continue with iv antibiotics and clotrimazole for RLE/buttock cellulitis. ID is following. He has positive blood cultures x 2. Repeat blood cultures are negative to date. Echocardiogram was reviewed; cannot rule out vegetations. Will request for cardiology evaluation to evaluate for ?TAHIR. Continue to monitor fever trend. CT chest showed possible multifocal pneumonia. Started on tamiflu for influenza. Alcohol level was negative. Continue with multivitamin, folic acid and thiamine. Continue with insulin ss and levemir for diabetes. CT abd/pelvis reviewed which showed soft tissue lesion in rectosigmoid colon. CEA is elevated as well. US abd/pelvis showed nonspecific right hepatic masses , fatty liver and cholelithiasis. GI evaluation was requested. Will follow up GI recommendations (?colonoscopy vs liver biopsy). Sixto Galo MD Hospitalist.
--- NOTE | 2017-12-06 16:32 | CP.PCM.PN ---
Subjective - Date & Time of Evaluation Date of Evaluation: 12/06/17 Time of Evaluation: 10:50 - Subjective Subjective: Still with fevers. Objective - Vital Signs/Intake and Output Vital Signs (last 24 hours): Temp Pulse Resp BP Pulse Ox 101.9 F H 111 H 19 185/93 H 90 L 12/06/17 06:00 12/06/17 06:00 12/06/17 06:00 12/06/17 06:00 12/06/17 06:00 Intake and Output: 12/06/17 12/06/17 06:59 18:59 Intake Total 2990 Balance 2990 - Medications Medications: Current Medications Acetaminophen (Tylenol 325mg Tab) 650 mg PO Q6H PRN PRN Reason: Fever >100.4 F Last Admin: 12/05/17 11:08 Dose: 650 mg Aspirin (Ecotrin) 81 mg PO DAILY [facility] Last Admin: 12/05/17 09:33 Dose: 81 mg Atorvastatin Calcium (Lipitor) 40 mg PO DIN [facility] Last Admin: 12/04/17 16:27 Dose: 40 mg Folic Acid (Folic Acid) 1 mg PO DAILY [facility] Last Admin: 12/05/17 09:33 Dose: 1 mg Heparin Sodium (Porcine) (Heparin) 5,000 units SC Q12 [facility] PRN Reason: Protocol Last Admin: 12/05/17 21:36 Dose: 5,000 units Hydralazine HCl (Apresoline) 10 mg IVP Q6 PRN PRN Reason: For SBP > 150 Last Admin: 12/02/17 17:08 Dose: 10 mg Sodium Chloride (Sodium Chloride 0.9%) 1,000 mls @ 100 mls/hr IV .Q10H [facility] Last Admin: 12/06/17 06:14 Dose: 100 mls/hr Vancomycin HCl (Vancomycin 1gm) 1 gm in 250 mls @ 167 mls/hr IVPB Q12 [facility] PRN Reason: Protocol Last Admin: 12/05/17 22:51 Dose: 167 mls/hr Meropenem/Sodium Chloride (Meropenem 1g/Ns 100ml Ivpb) 1 gm in 100 mls @ 100 mls/hr IVPB Q8 [facility] PRN Reason: Protocol Stop: 12/14/17 22:01 Last Admin: 12/06/17 06:32 Dose: 100 mls/hr Ibuprofen (Motrin Tab) 400 mg PO Q6H PRN PRN Reason: Fever >100.4 F Insulin Detemir (Levemir) 10 unit SC HS [facility] Last Admin: 12/05/17 21:38 Dose: 10 unit Insulin Human Regular (Humulin R High) 0 units SC ACHS [facility] PRN Reason: Protocol Last Admin: 12/05/17 21:38 Dose: Not Given Lorazepam (Ativan) 1 mg IVP Q6H PRN; Protocol PRN Reason: Anxiety Last Admin: 12/02/17 07:42 Dose: 1 mg Multivitamins/Minerals (Therapeutic-M Tab) 1 tab PO 0800 [facility] Last Admin: 12/05/17 07:59 Dose: 1 tab Pantoprazole Sodium (Protonix Ec Tab) 40 mg PO ACB [facility] Last Admin: 12/05/17 07:59 Dose: 40 mg Thiamine HCl (Vitamin B1 Tab) 100 mg PO DAILY [facility] Last Admin: 12/05/17 09:33 Dose: 100 mg - Labs Labs: 12/06/17 05:40 12/06/17 05:40 PT 13.2 SECONDS (9.4-12.5) H 11/29/17 10:57 INR 1.14 (0.93-1.08) H 11/29/17 10:57 APTT 28.3 Seconds (25.1-36.5) 11/30/17 05:30 - Constitutional Appears: Chronically Ill - Head Exam Head Exam: NORMAL INSPECTION - ENT Exam ENT Exam: Mucous Membranes Moist - Neck Exam Neck Exam: absent: Meningismus - Respiratory Exam Respiratory Exam: Decreased Breath Sounds - Cardiovascular Exam Cardiovascular Exam: +S1, +S2 - GI/Abdominal Exam GI & Abdominal Exam: Soft. absent: Tenderness Assessment and Plan - Assessment and Plan (Free Text) Plan: Assessment sepsis due to multifocal HCAP on top of Influenza A infection in this patient with strep viridans and CoNS bacteremia from right gluteal and back cellulitis Plan started Vancomycin and Merrem and Tamiflu will monitor clinically
[2017-12-06] MEDS: Insulin Detemir 100 units/ml Vial (Levemir) SC SCH (22:58)
[2017-12-06] MEDS: Levalbuterol 0.63 MG/3 ML Inhal Soln UD IH SCH (23:06)
[2017-12-06] MEDS: Acetylcysteine 20% Inhal Soln (4ml) IH SCH (23:06)
[2017-12-07] MEDS: Meropenem 1g/NS 100mL IVPB 1 GM/100 ML PIGGYBACK IVPB SCH ×3 (06:18→21:50)
[2017-12-07 06:49] LABS: BASO # 0.01 K/mm3 (0.0-2.0); BASO % 0.2 % (0.0-3.0); GRAN # 5.07 (1.4-6.5); GRAN % 78.5 % (50.0-68.0); HEMOGLOBIN 12.4 g/dL (14.0-18.0); LYMPH # 0.9 (1.2-3.4); MEAN CELL VOLUME 84.1 fl (80.0-105.0); MEAN CORPUSCULAR HEMOGLOBIN 27.7 pg (25.0-35.0); MEAN PLATELET VOLUME 9.8 fl (7.0-11.0); MONO # 0.5 (0.1-0.6); MONO % 7.3 % (1.0-6.0); RBC 4.47 10^6/uL (3.5-6.1); RED CELL DISTRIBUTION WIDTH 14.8 % (11.5-14.5); WHITE BLOOD COUNT 6.5 10^3/ul (4.5-11.0)
[2017-12-07 07:06] LABS: B-TYPE NATRIURETIC PEPTIDE 1800 pg/mL (0-450)
[2017-12-07 07:07] LABS: ALB/GLOB RATIO 0.9 (1.1-1.8); ALBUMIN 2.8 g/dL (3.0-4.8); ALT/SGPT 67 U/L (7-56); AST/SGOT 79 U/L (17-59); BLOOD UREA NITROGEN 12 mg/dL (7-21); CALCIUM 8.7 mg/dL (8.4-10.5); GFR NON-AFRICAN AMERICAN > 60
[2017-12-07] MEDS: Levalbuterol 0.63 MG/3 ML Inhal Soln UD IH SCH ×2 (07:56→19:45)
[2017-12-07] MEDS: Acetylcysteine 20% Inhal Soln (4ml) IH SCH ×2 (07:56→19:45)
[2017-12-07] MEDS ORDERED: Potassium Chloride 20 mEq ER Tab PO STA (08:10)
[2017-12-07] MEDS: Multivitamin With Minerals Tab PO SCH (08:36)
[2017-12-07] MEDS: Insulin Reg-HIGH-Coverage SC SCH ×4 (08:36→21:52)
[2017-12-07] MEDS: Pantoprazole 40 mg EC Tab PO SCH (08:37)
[2017-12-07] MEDS ORDERED: Potassium Chloride 20 mEq ER Tab PO ONE (10:00)
[2017-12-07] MEDS: Vancomycin 1gm in NS 250ml 1 GM/250 ML BAG IVPB SCH ×2 (11:06→21:55)
--- NOTE | 2017-12-07 11:14 | CP.PCM.PN ---
<Miguel Dc - Last Filed: 12/07/17 12:26> Subjective - Date & Time of Evaluation Date of Evaluation: 12/07/17 Time of Evaluation: 07:05 - Subjective Subjective: GI Progress note - Ruperto Dc PGY2 Patient seen and examined at bedside this morning. Overnight, nursing reported that he had difficulty breathing and respiratory rate in the 30's. He was given 80mg of lasix and placed on BiPAP with improvement of his symptoms. Otherwise, no other acute overnight events. Patient unable to participate in meaningful conversation. 12point ROS limited due to patient status. Objective - Vital Signs/Intake and Output Vital Signs (last 24 hours): Temp Pulse Resp BP Pulse Ox 99 F 97 H 18 119/77 94 L 12/07/17 08:14 12/07/17 08:14 12/06/17 16:30 12/07/17 08:14 12/07/17 08:14 Intake and Output: 12/07/17 12/07/17 06:59 18:59 Intake Total 840 0 Balance 840 0 - Medications Medications: Current Medications Acetaminophen (Tylenol 325mg Tab) 650 mg PO Q6H PRN PRN Reason: Fever >100.4 F Last Admin: 12/05/17 11:08 Dose: 650 mg Acetylcysteine (Acetylcysteine 20%) 4 ml IH BIDRESP [facility] Last Admin: 12/07/17 07:56 Dose: 4 ml Aspirin (Ecotrin) 81 mg PO DAILY [facility] Last Admin: 12/06/17 11:00 Dose: 81 mg Atorvastatin Calcium (Lipitor) 40 mg PO DIN [facility] Last Admin: 12/04/17 16:27 Dose: 40 mg Folic Acid (Folic Acid) 1 mg PO DAILY [facility] Last Admin: 12/06/17 11:00 Dose: 1 mg Heparin Sodium (Porcine) (Heparin) 5,000 units SC Q12 [facility] PRN Reason: Protocol Last Admin: 12/06/17 22:59 Dose: 5,000 units Hydralazine HCl (Apresoline) 10 mg IVP Q6 PRN PRN Reason: For SBP > 150 Last Admin: 12/07/17 01:47 Dose: 10 mg Sodium Chloride (Sodium Chloride 0.9%) 1,000 mls @ 100 mls/hr IV .Q10H [facility] Last Admin: 12/06/17 06:14 Dose: 100 mls/hr Vancomycin HCl (Vancomycin 1gm) 1 gm in 250 mls @ 167 mls/hr IVPB Q12 [facility] PRN Reason: Protocol Last Admin: 12/06/17 23:57 Dose: 167 mls/hr Meropenem/Sodium Chloride (Meropenem 1g/Ns 100ml Ivpb) 1 gm in 100 mls @ 100 mls/hr IVPB Q8 [facility] PRN Reason: Protocol Stop: 12/14/17 22:01 Last Admin: 12/07/17 06:18 Dose: 100 mls/hr Ibuprofen (Motrin Tab) 400 mg PO Q6H PRN PRN Reason: Fever >100.4 F Last Admin: 12/06/17 13:11 Dose: 400 mg Insulin Detemir (Levemir) 10 unit SC HS [facility] Last Admin: 12/06/17 22:58 Dose: 10 unit Insulin Human Regular (Humulin R High) 0 units SC ACHS [facility] PRN Reason: Protocol Last Admin: 12/07/17 08:36 Dose: 2 units Levalbuterol HCl (Xopenex) 0.63 mg IH BIDRESP [facility] Last Admin: 12/07/17 07:56 Dose: 0.63 mg Lorazepam (Ativan) 1 mg IVP Q6H PRN; Protocol PRN Reason: Anxiety Last Admin: 12/02/17 07:42 Dose: 1 mg Multivitamins/Minerals (Therapeutic-M Tab) 1 tab PO 0800 [facility] Last Admin: 12/07/17 08:36 Dose: 1 tab Oseltamivir Phosphate (Tamiflu Cap) 75 mg PO BID [facility] PRN Reason: Protocol Stop: 12/11/17 12:59 Last Admin: 12/06/17 17:35 Dose: 75 mg Pantoprazole Sodium (Protonix Ec Tab) 40 mg PO ACB [facility] Last Admin: 12/07/17 08:37 Dose: 40 mg Thiamine HCl (Vitamin B1 Tab) 100 mg PO DAILY [facility] Last Admin: 12/06/17 11:00 Dose: 100 mg - Labs Labs: 12/07/17 06:15 12/07/17 06:15 PT 13.2 SECONDS (9.4-12.5) H 11/29/17 10:57 INR 1.14 (0.93-1.08) H 11/29/17 10:57 APTT 28.3 Seconds (25.1-36.5) 11/30/17 05:30 - Constitutional Appears: No Acute Distress, Unkempt - Head Exam Head Exam: ATRAUMATIC, NORMOCEPHALIC - Eye Exam Eye Exam: EOMI Pupil Exam: PERRL - ENT Exam ENT Exam: Mucous Membranes Moist - Respiratory Exam Respiratory Exam: absent: Rales, Rhonchi, Wheezes - Cardiovascular Exam Cardiovascular Exam: +S1, +S2. absent: Gallop, Rubs - GI/Abdominal Exam GI & Abdominal Exam: Soft. absent: Distended, Firm, Guarding, Rigid, Tenderness , Rebound - Neurological Exam Neurological Exam: Alert, Awake - Skin Skin Exam: Dry, Intact, Normal Color, Warm Assessment and Plan - Assessment and Plan (Free Text) Plan: 57yo male with unknown history presents with altered mental status secondary to toxic metabolic encephalopthy/ischemic stroke in setting of influenza/bacteremia /pneumonia 1. Rectosigmoid mass 2. Hepatic mass 3. Sepsis 2/2 multifocal pneumonia/influenza/bacteremia 4. Ischemic stroke 5. Toxic metabolic encephalopathy Plan: -CT Chest/Abdomen/Pelvis reviewed; revealed a 7.2x2.0cm rectosigmoid intramural soft tissue density (see full report for further details) -Abdominal US reviewed; revealed nonspecific right hepatic masses measuring up to 4cm; metastases are not excluded; hepatomegaly, cholelithiasis -Flexible sigmoidoscopy/Colonoscopy to be arranged prior to patient discharge; Continue current medical management for the time being -Hepatitis panel negative -Cdiff negative -AFP 1.0, CEA 32.2 -Rectal exam revealed no palpable masses or gross blood -Follow up neurology recommendations regarding AMS -Continue with antibiotics as per ID recommendations -Concern for endocarditis given findings on echo with potential valvular lesions <Manuel Fuentes - Last Filed: 12/07/17 13:33> Objective - Vital Signs/Intake and Output Vital Signs (last 24 hours): Temp Pulse Resp BP Pulse Ox 99 F 97 H 18 119/77 94 L 12/07/17 08:14 12/07/17 08:14 12/06/17 16:30 12/07/17 08:14 12/07/17 08:14 Intake and Output: 12/07/17 12/07/17 06:59 18:59 Intake Total 840 0 Balance 840 0 - Medications Medications: Current Medications Acetaminophen (Tylenol 325mg Tab) 650 mg PO Q6H PRN PRN Reason: Fever >100.4 F Last Admin: 12/05/17 11:08 Dose: 650 mg Acetylcysteine (Acetylcysteine 20%) 4 ml IH BIDRESP [facility] Last Admin: 12/07/17 07:56 Dose: 4 ml Aspirin (Ecotrin) 81 mg PO DAILY [facility] Last Admin: 12/07/17 11:06 Dose: 81 mg Atorvastatin Calcium (Lipitor) 40 mg PO DIN [facility] Last Admin: 12/04/17 16:27 Dose: 40 mg Folic Acid (Folic Acid) 1 mg PO DAILY [facility] Last Admin: 12/07/17 11:06 Dose: 1 mg Heparin Sodium (Porcine) (Heparin) 5,000 units SC Q12 [facility] PRN Reason: Protocol Last Admin: 12/07/17 11:06 Dose: 5,000 units Hydralazine HCl (Apresoline) 10 mg IVP Q6 PRN PRN Reason: For SBP > 150 Last Admin: 12/07/17 01:47 Dose: 10 mg Sodium Chloride (Sodium Chloride 0.9%) 1,000 mls @ 100 mls/hr IV .Q10H [facility] Last Admin: 12/06/17 06:14 Dose: 100 mls/hr Vancomycin HCl (Vancomycin 1gm) 1 gm in 250 mls @ 167 mls/hr IVPB Q12 [facility] PRN Reason: Protocol Last Admin: 12/07/17 11:06 Dose: 167 mls/hr Meropenem/Sodium Chloride (Meropenem 1g/Ns 100ml Ivpb) 1 gm in 100 mls @ 100 mls/hr IVPB Q8 [facility] PRN Reason: Protocol Stop: 12/14/17 22:01 Last Admin: 12/07/17 06:18 Dose: 100 mls/hr Ibuprofen (Motrin Tab) 400 mg PO Q6H PRN PRN Reason: Fever >100.4 F Last Admin: 12/06/17 13:11 Dose: 400 mg Insulin Detemir (Levemir) 10 unit SC HS [facility] Last Admin: 12/06/17 22:58 Dose: 10 unit Insulin Human Regular (Humulin R High) 0 units SC ACHS [facility] PRN Reason: Protocol Last Admin: 12/07/17 12:54 Dose: 2 units Levalbuterol HCl (Xopenex) 0.63 mg IH BIDRESP [facility] Last Admin: 12/07/17 07:56 Dose: 0.63 mg Lorazepam (Ativan) 1 mg IVP Q6H PRN; Protocol PRN Reason: Anxiety Last Admin: 12/02/17 07:42 Dose: 1 mg Multivitamins/Minerals (Therapeutic-M Tab) 1 tab PO 0800 [facility] Last Admin: 12/07/17 08:36 Dose: 1 tab Oseltamivir Phosphate (Tamiflu Cap) 75 mg PO BID [facility] PRN Reason: Protocol Stop: 12/11/17 12:59 Last Admin: 12/07/17 11:05 Dose: 75 mg Pantoprazole Sodium (Protonix Ec Tab) 40 mg PO ACB [facility] Last Admin: 12/07/17 08:37 Dose: 40 mg Thiamine HCl (Vitamin B1 Tab) 100 mg PO DAILY [facility] Last Admin: 12/07/17 11:06 Dose: 100 mg - Labs Labs: 12/07/17 06:15 12/07/17 06:15 PT 13.2 SECONDS (9.4-12.5) H 11/29/17 10:57 INR 1.14 (0.93-1.08) H 11/29/17 10:57 APTT 28.3 Seconds (25.1-36.5) 11/30/17 05:30 Attending/Attestation - Attestation I have personally seen and examined this patient.: Yes I have fully participated in the care of the patient.: Yes I have reviewed all pertinent clinical information, including history, physical exam and plan: Yes Notes (Text): 12/07/17 13:31 57 year old male with admitted with altered mental status, influenza, stroke, found to have likely metastatic colorectal cancer to the liver. 1. Colon mass 2. Liver mass Plan: -presumed metastatic colon cancer -when patient medically optimized, may consider flex sig with biopsy -patient seems unlikely to tolerate prep at this stage -on antibiotics per ID for pneumonia
--- NOTE | 2017-12-07 13:20 | CP.PCM.PN ---
<Ryan White - Last Filed: 12/07/17 13:17> Subjective - Date & Time of Evaluation Date of Evaluation: 12/07/17 Time of Evaluation: 13:17 - Subjective Subjective: Medicine Progress Note: Patient seen and assessed at bedside. Overnight, nursing reported that patient had tachypnea and hypoxia to 90% on 3L NC. He was given 80mg of lasix and placed on BiPAP with improvement of his symptoms. Patient with improved mental status, with orientation to person and place but not time or event. Patient still unable to participate in ROS interview. Objective - Vital Signs/Intake and Output Vital Signs (last 24 hours): Temp Pulse Resp BP Pulse Ox 99 F 97 H 18 119/77 94 L 12/07/17 08:14 12/07/17 08:14 12/06/17 16:30 12/07/17 08:14 12/07/17 08:14 Intake and Output: 12/07/17 12/07/17 06:59 18:59 Intake Total 840 0 Balance 840 0 - Medications Medications: Current Medications Acetaminophen (Tylenol 325mg Tab) 650 mg PO Q6H PRN PRN Reason: Fever >100.4 F Last Admin: 12/05/17 11:08 Dose: 650 mg Acetylcysteine (Acetylcysteine 20%) 4 ml IH BIDRESP [facility] Last Admin: 12/07/17 07:56 Dose: 4 ml Aspirin (Ecotrin) 81 mg PO DAILY [facility] Last Admin: 12/07/17 11:06 Dose: 81 mg Atorvastatin Calcium (Lipitor) 40 mg PO DIN [facility] Last Admin: 12/04/17 16:27 Dose: 40 mg Folic Acid (Folic Acid) 1 mg PO DAILY [facility] Last Admin: 12/07/17 11:06 Dose: 1 mg Heparin Sodium (Porcine) (Heparin) 5,000 units SC Q12 [facility] PRN Reason: Protocol Last Admin: 12/07/17 11:06 Dose: 5,000 units Hydralazine HCl (Apresoline) 10 mg IVP Q6 PRN PRN Reason: For SBP > 150 Last Admin: 12/07/17 01:47 Dose: 10 mg Sodium Chloride (Sodium Chloride 0.9%) 1,000 mls @ 100 mls/hr IV .Q10H [facility] Last Admin: 12/06/17 06:14 Dose: 100 mls/hr Vancomycin HCl (Vancomycin 1gm) 1 gm in 250 mls @ 167 mls/hr IVPB Q12 [facility] PRN Reason: Protocol Last Admin: 12/07/17 11:06 Dose: 167 mls/hr Meropenem/Sodium Chloride (Meropenem 1g/Ns 100ml Ivpb) 1 gm in 100 mls @ 100 mls/hr IVPB Q8 [facility] PRN Reason: Protocol Stop: 12/14/17 22:01 Last Admin: 12/07/17 06:18 Dose: 100 mls/hr Ibuprofen (Motrin Tab) 400 mg PO Q6H PRN PRN Reason: Fever >100.4 F Last Admin: 12/06/17 13:11 Dose: 400 mg Insulin Detemir (Levemir) 10 unit SC HS [facility] Last Admin: 12/06/17 22:58 Dose: 10 unit Insulin Human Regular (Humulin R High) 0 units SC ACHS [facility] PRN Reason: Protocol Last Admin: 12/07/17 12:54 Dose: 2 units Levalbuterol HCl (Xopenex) 0.63 mg IH BIDRESP [facility] Last Admin: 12/07/17 07:56 Dose: 0.63 mg Lorazepam (Ativan) 1 mg IVP Q6H PRN; Protocol PRN Reason: Anxiety Last Admin: 12/02/17 07:42 Dose: 1 mg Multivitamins/Minerals (Therapeutic-M Tab) 1 tab PO 0800 [facility] Last Admin: 12/07/17 08:36 Dose: 1 tab Oseltamivir Phosphate (Tamiflu Cap) 75 mg PO BID [facility] PRN Reason: Protocol Stop: 12/11/17 12:59 Last Admin: 12/07/17 11:05 Dose: 75 mg Pantoprazole Sodium (Protonix Ec Tab) 40 mg PO ACB [facility] Last Admin: 12/07/17 08:37 Dose: 40 mg Thiamine HCl (Vitamin B1 Tab) 100 mg PO DAILY [facility] Last Admin: 12/07/17 11:06 Dose: 100 mg - Labs Labs: 12/07/17 06:15 12/07/17 06:15 PT 13.2 SECONDS (9.4-12.5) H 11/29/17 10:57 INR 1.14 (0.93-1.08) H 11/29/17 10:57 APTT 28.3 Seconds (25.1-36.5) 02/13/18 05:30 - Constitutional Appears: No Acute Distress, Older Than Stated Age - Head Exam Head Exam: ATRAUMATIC, NORMOCEPHALIC - Eye Exam Eye Exam: EOMI, PERRL - ENT Exam ENT Exam: Mucous Membranes Moist - Neck Exam Neck Exam: absent: Lymphadenopathy - Respiratory Exam Respiratory Exam: Rhonchi (Trace LLL), NORMAL BREATHING PATTERN. absent: Accessory Muscle Use, Chest Wall Tenderness, Decreased Breath Sounds, Clear to Ausculation Bilateral, Prolonged Expiratory Phase, Rales, Wheezes, Respiratory Distress, Stridor - Cardiovascular Exam Cardiovascular Exam: REGULAR RHYTHM, RRR, +S1, +S2. absent: Tachycardia - GI/Abdominal Exam GI & Abdominal Exam: Soft, Normal Bowel Sounds. absent: Tenderness - Extremities Exam Extremities Exam: Full ROM, Normal Capillary Refill. absent: Calf Tenderness, Joint Swelling, Pedal Edema, Tenderness - Neurological Exam Neurological Exam: Awake. absent: Oriented x3 - Skin Skin Exam: Dry, Warm. absent: Intact, Normal Color Additional comments: Erythematous rash extending from right lateral thigh to anal cleft; two stage 2 sacral decubitus ulcers of right lateral thigh and right gluteal region Assessment and Plan - Assessment and Plan (Free Text) Assessment: 57 year old male with an unknown past medical history who was brought in by ambulance after being found with an AMS and covered in feces in his apartment. His mental status has progressively improved since admission. He is currently on IV Vancomycin and Zozyn for coagulase negative staph and strep viridans bacteremia. Repeat blood cultures negative. An MRI Brain showed acute vs. subacute lacunar infarct in the left parietal region. Neurology is following and patient is on stroke prevention medication. Patient continues to have fevers while on antibiotic therapy and noted to have an echo with bubble study that couldn't rule out septic vegetations of the aortic valve. ID is following and recommends continuing antibiotics. Cardiology was consulted for TAHIR evaluation to rule out endocarditis and septic vegetations. Patient was found to have new colonic mass and multifocal pneumonia on CT chest/abdomen/pelvis and concerns for metastatic disease of the liver on abdominal ultrasound. GI was consulted. Plan: 1. Toxic-Metabolic Encephalopathy secondary to Strep Viridans/Coag Neg Staph Bacteremia -Brain MRI showed prominent white-matter signal abnormality of possible metabolic or demyelination etiologies, a possible acute or subacute lacunar infarct in the left parietal lobe and diffusely increased ventricular volume -EEG showed left temporal slowing indicating structural abnormality and may also represent postictal slowing -Echo with bubble study showing calcified aortic valve with septic vegetations not excluded -Initial blood cultures grew Strep Viridans/Coag Neg Staph -Repeat blood cultures negative for 48 hours -Continue IV Vancomycin and Merrem -Motrin 400mg Q6 PRN for fever -TAHIR to be done when patient medically optimized -Cardiology, Neurology and ID consulted, all recommendations appreciated 2. New Colonic Neoplasm -CT Chest/Abdomen/Pelvis showed 7.2x2.0cm rectosigmoid intramural soft tissue density that is suspicious for malignancy -Abdominal U/S showed nonspecific right hepatic masses measuring up to 4cm; metastases are not excluded; hepatomegaly, cholelithiasis -CEA elevated and AFP within normal limits -GI consulted, all recommendations appreciated 3. Multifocal Pneumonia -CT Chest/Abdomen/Pelvis showed probable multifocal pneumonia with abnormal findings in LLL and RUL; See full report for details -Currently on IV Vancomycin and Merrem 4. Ischemic Stroke -See Brain MRI findings above -ASA 81mg -Lipitor 40mg currently held in setting of elevated LFT's 5. Transaminitis -See abdominal U/S findings above -Hepatitis panel negative -PRN Tylenol and Lipitor 40mg held -Continue to monitor with daily CMP's 6. History of Alcohol Abuse/Withdrawal -Ativan 1mg IVP Q6H PRN -PO Folate, Thiamine, and MV supplementation -Fall, Seizure and Aspiration precautions 7. Hyperglycemia -SSI-High and Accuchecks ACHS -Levemir 10u HS -Carb Consistent Diet 8. HTN -Hydralazine 10mg IVP Q6 PRN 9. Stage 2 Sacral Decubitus Ulcers -Continue wound care -Continue Q2 repositioning GI Prophylaxis: Protonix DVT Prophylaxis: Heparin and SCD's Patient seen and case discussed with attending, Dr. Schumacher. Roxanne White, PGY-1 <Deanna Schumacher - Last Filed: 12/11/17 09:33> Objective - Vital Signs/Intake and Output Vital Signs (last 24 hours): Temp Pulse Resp BP Pulse Ox 97.4 F L 88 20 158/99 H 90 L 12/11/17 07:48 12/11/17 07:48 12/11/17 07:48 12/11/17 07:48 12/10/17 16:00 Intake and Output: 12/11/17 12/11/17 06:59 18:59 Intake Total 660 Balance 660 - Medications Medications: Current Medications Acetaminophen (Tylenol 325mg Tab) 650 mg PO Q6H PRN PRN Reason: Fever >100.4 F Last Admin: 12/05/17 11:08 Dose: 650 mg Acetylcysteine (Acetylcysteine 20%) 4 ml IH BIDRESP [facility] Last Admin: 12/11/17 07:31 Dose: 4 ml Amlodipine Besylate (Norvasc) 10 mg PO DAILY [facility] Last Admin: 12/10/17 10:27 Dose: 10 mg Aspirin (Ecotrin) 81 mg PO DAILY [facility] Last Admin: 12/10/17 10:25 Dose: 81 mg Atorvastatin Calcium (Lipitor) 40 mg PO DIN [facility] Last Admin: 12/04/17 16:27 Dose: 40 mg Clotrimazole (Lotrimin Af 1%) 0 ml TOP BID [facility] Last Admin: 12/10/17 17:42 Dose: 1 applic Folic Acid (Folic Acid) 1 mg PO DAILY [facility] Last Admin: 12/10/17 10:25 Dose: 1 mg Heparin Sodium (Porcine) (Heparin) 5,000 units SC Q12 [facility] PRN Reason: Protocol Last Admin: 12/10/17 22:19 Dose: 5,000 units Hydralazine HCl (Apresoline) 10 mg IVP Q6 PRN PRN Reason: For SBP > 150 Last Admin: 12/08/17 23:23 Dose: 10 mg Meropenem/Sodium Chloride (Meropenem 1g/Ns 100ml Ivpb) 1 gm in 100 mls @ 100 mls/hr IVPB Q8 [facility] PRN Reason: Protocol Stop: 12/14/17 22:01 Last Admin: 12/11/17 05:54 Dose: 100 mls/hr Ibuprofen (Motrin Tab) 400 mg PO Q6H PRN PRN Reason: Fever >100.4 F Last Admin: 12/10/17 23:04 Dose: 400 mg Insulin Detemir (Levemir) 10 unit SC HS [facility] Last Admin: 12/10/17 22:20 Dose: 10 unit Insulin Human Regular (Humulin R High) 0 units SC ACHS [facility] PRN Reason: Protocol Last Admin: 12/11/17 07:39 Dose: Not Given Levalbuterol HCl (Xopenex) 0.63 mg IH [id number] [facility] Last Admin: 12/11/17 07:32 Dose: 0.63 mg Lorazepam (Ativan) 1 mg IVP Q6H PRN; Protocol PRN Reason: Anxiety Last Admin: 12/10/17 03:45 Dose: 1 mg Multivitamins/Minerals (Therapeutic-M Tab) 1 tab PO 0800 [facility] Last Admin: 12/10/17 10:29 Dose: 1 tab Oseltamivir Phosphate (Tamiflu Cap) 75 mg PO BID [facility] PRN Reason: Protocol Stop: 12/11/17 12:59 Last Admin: 12/10/17 17:42 Dose: 75 mg Pantoprazole Sodium (Protonix Ec Tab) 40 mg PO ACB [facility] Last Admin: 12/10/17 10:28 Dose: 40 mg Potassium Chloride (K-Dur 20 Meq Er Tab) 40 meq PO BID [facility] Last Admin: 12/10/17 17:41 Dose: 40 meq Thiamine HCl (Vitamin B1 Tab) 100 mg PO DAILY [facility] Last Admin: 12/10/17 10:30 Dose: 100 mg - Labs Labs: 12/11/17 07:00 12/11/17 07:00 PT 12.5 SECONDS (9.4-12.5) 12/09/17 10:00 INR 1.09 (0.93-1.08) H 12/09/17 10:00 APTT 28.3 Seconds (25.1-36.5) 11/30/17 05:30 Attending/Attestation - Attestation I have personally seen and examined this patient.: Yes I have fully participated in the care of the patient.: Yes I have reviewed all pertinent clinical information, including history, physical exam and plan: Yes Notes (Text): 12/11/17 09:25 Patient was seen and examined with medical services coordinator. 57 year old male with an unknown past medical history who was brought in by ambulance after being found with an AMS and covered in feces in his apartment. His mental status has progressively improved since admission. Blood cultures grew Streptococus viridan.Echo with bubble study that couldn't rule out septic vegetations of the aortic valve. ID is following and recommends continuing antibiotics. Cardiology is consulted for TAHIR evaluation to rule out endocarditis and septic vegetations. Patient was also found to have new colonic mass and multifocal pneumonia on CT chest/abdomen/pelvis and concerns for metastatic disease ?of the liver on abdominal ultrasound. MRI Brain showed acute vs. subacute lacunar infarct in the left parietal region Repeat blood cultures are negative to date He is currently on IV Vancomycin and Meropenem as per ID.Patient was also found to have influenza positive and has been started on Tamiflu. GI is consultes for Rectosigmod lesion on CT abdomen and Pelvis. Hypokalemia, Replacement has been given. Prognosis is guarded. 12/11/17 09:32 12/11/17 09:33
--- NOTE | 2017-12-07 16:14 | CP.PCM.PN ---
Subjective - Date & Time of Evaluation Date of Evaluation: 12/07/17 Time of Evaluation: 10:40 - Subjective Subjective: No diarrhea, no fevers overnight, not in distress. Objective - Vital Signs/Intake and Output Vital Signs (last 24 hours): Temp Pulse Resp BP Pulse Ox 99 F 97 H 18 119/77 94 L 12/07/17 08:14 12/07/17 08:14 12/06/17 16:30 12/07/17 08:14 12/07/17 08:14 Intake and Output: 12/07/17 12/07/17 06:59 18:59 Intake Total 840 0 Balance 840 0 - Medications Medications: Current Medications Acetaminophen (Tylenol 325mg Tab) 650 mg PO Q6H PRN PRN Reason: Fever >100.4 F Last Admin: 12/05/17 11:08 Dose: 650 mg Acetylcysteine (Acetylcysteine 20%) 4 ml IH BIDRESP [facility] Last Admin: 12/07/17 07:56 Dose: 4 ml Aspirin (Ecotrin) 81 mg PO DAILY [facility] Last Admin: 12/06/17 11:00 Dose: 81 mg Atorvastatin Calcium (Lipitor) 40 mg PO DIN [facility] Last Admin: 12/04/17 16:27 Dose: 40 mg Folic Acid (Folic Acid) 1 mg PO DAILY [facility] Last Admin: 12/06/17 11:00 Dose: 1 mg Heparin Sodium (Porcine) (Heparin) 5,000 units SC Q12 [facility] PRN Reason: Protocol Last Admin: 12/06/17 22:59 Dose: 5,000 units Hydralazine HCl (Apresoline) 10 mg IVP Q6 PRN PRN Reason: For SBP > 150 Last Admin: 12/07/17 01:47 Dose: 10 mg Sodium Chloride (Sodium Chloride 0.9%) 1,000 mls @ 100 mls/hr IV .Q10H [facility] Last Admin: 12/06/17 06:14 Dose: 100 mls/hr Vancomycin HCl (Vancomycin 1gm) 1 gm in 250 mls @ 167 mls/hr IVPB Q12 [facility] PRN Reason: Protocol Last Admin: 12/06/17 23:57 Dose: 167 mls/hr Meropenem/Sodium Chloride (Meropenem 1g/Ns 100ml Ivpb) 1 gm in 100 mls @ 100 mls/hr IVPB Q8 [facility] PRN Reason: Protocol Stop: 12/14/17 22:01 Last Admin: 12/07/17 06:18 Dose: 100 mls/hr Ibuprofen (Motrin Tab) 400 mg PO Q6H PRN PRN Reason: Fever >100.4 F Last Admin: 12/06/17 13:11 Dose: 400 mg Insulin Detemir (Levemir) 10 unit SC HS [facility] Last Admin: 12/06/17 22:58 Dose: 10 unit Insulin Human Regular (Humulin R High) 0 units SC ACHS [facility] PRN Reason: Protocol Last Admin: 12/07/17 08:36 Dose: 2 units Levalbuterol HCl (Xopenex) 0.63 mg IH BIDRESP [facility] Last Admin: 12/07/17 07:56 Dose: 0.63 mg Lorazepam (Ativan) 1 mg IVP Q6H PRN; Protocol PRN Reason: Anxiety Last Admin: 12/02/17 07:42 Dose: 1 mg Multivitamins/Minerals (Therapeutic-M Tab) 1 tab PO 0800 [facility] Last Admin: 12/07/17 08:36 Dose: 1 tab Oseltamivir Phosphate (Tamiflu Cap) 75 mg PO BID [facility] PRN Reason: Protocol Stop: 12/11/17 12:59 Last Admin: 12/06/17 17:35 Dose: 75 mg Pantoprazole Sodium (Protonix Ec Tab) 40 mg PO ACB [facility] Last Admin: 12/07/17 08:37 Dose: 40 mg Potassium Chloride (K-Dur 20 Meq Er Tab) 40 meq PO ONCE ONE Stop: 12/07/17 10:01 Thiamine HCl (Vitamin B1 Tab) 100 mg PO DAILY [facility] Last Admin: 12/06/17 11:00 Dose: 100 mg - Labs Labs: 12/07/17 06:15 12/07/17 06:15 PT 13.2 SECONDS (9.4-12.5) H 11/29/17 10:57 INR 1.14 (0.93-1.08) H 11/29/17 10:57 APTT 28.3 Seconds (25.1-36.5) 11/30/17 05:30 - Constitutional Appears: Chronically Ill - Head Exam Head Exam: NORMAL INSPECTION - Neck Exam Neck Exam: absent: Meningismus - Respiratory Exam Respiratory Exam: Decreased Breath Sounds - Cardiovascular Exam Cardiovascular Exam: +S1, +S2 - GI/Abdominal Exam GI & Abdominal Exam: Soft. absent: Tenderness Assessment and Plan - Assessment and Plan (Free Text) Plan: Assessment sepsis due to multifocal HCAP on top of Influenza A infection in this patient with strep viridans and CoNS bacteremia from right gluteal and back cellulitis Plan continue Vancomycin and Merrem and Tamiflu day 2 awaiting TAHIR when feasible will continue to monitor clinically
[2017-12-07] MEDS: Insulin Detemir 100 units/ml Vial (Levemir) SC SCH (21:51)
[2017-12-08] MEDS: Meropenem 1g/NS 100mL IVPB 1 GM/100 ML PIGGYBACK IVPB SCH ×3 (05:46→21:34)
--- NOTE | 2017-12-08 06:50 | CP.PCM.PN ---
<Miguel Dc - Last Filed: 12/08/17 11:14> Subjective - Date & Time of Evaluation Date of Evaluation: 12/08/17 Time of Evaluation: 06:49 - Subjective Subjective: GI Progress note - Ruperto Dc PGY2 Patient seen and examined at bedside this morning. No acute overnight events or new complaints reported. Remains confused and able to answer yes/no to simple questions. 12point ROS limited due to patient status Objective - Vital Signs/Intake and Output Vital Signs (last 24 hours): Temp Pulse Resp BP Pulse Ox 97.8 F 100 H 21 166/98 H 95 12/07/17 16:00 12/08/17 01:27 12/07/17 16:00 12/08/17 05:46 12/07/17 16:00 Intake and Output: 12/07/17 12/08/17 18:59 06:59 Intake Total 0 480 Balance 0 480 - Medications Medications: Current Medications Acetaminophen (Tylenol 325mg Tab) 650 mg PO Q6H PRN PRN Reason: Fever >100.4 F Last Admin: 12/05/17 11:08 Dose: 650 mg Acetylcysteine (Acetylcysteine 20%) 4 ml IH BIDRESP [facility] Last Admin: 12/07/17 19:45 Dose: 4 ml Aspirin (Ecotrin) 81 mg PO DAILY [facility] Last Admin: 12/07/17 11:06 Dose: 81 mg Atorvastatin Calcium (Lipitor) 40 mg PO DIN [facility] Last Admin: 12/04/17 16:27 Dose: 40 mg Folic Acid (Folic Acid) 1 mg PO DAILY [facility] Last Admin: 12/07/17 11:06 Dose: 1 mg Hydralazine HCl (Apresoline) 10 mg IVP Q6 PRN PRN Reason: For SBP > 150 Last Admin: 12/08/17 05:46 Dose: 10 mg Sodium Chloride (Sodium Chloride 0.9%) 1,000 mls @ 100 mls/hr IV .Q10H [facility] Last Admin: 12/06/17 06:14 Dose: 100 mls/hr Vancomycin HCl (Vancomycin 1gm) 1 gm in 250 mls @ 167 mls/hr IVPB Q12 [facility] PRN Reason: Protocol Last Admin: 12/07/17 21:55 Dose: 167 mls/hr Meropenem/Sodium Chloride (Meropenem 1g/Ns 100ml Ivpb) 1 gm in 100 mls @ 100 mls/hr IVPB Q8 [facility] PRN Reason: Protocol Stop: 12/14/17 22:01 Last Admin: 12/08/17 05:46 Dose: 100 mls/hr Ibuprofen (Motrin Tab) 400 mg PO Q6H PRN PRN Reason: Fever >100.4 F Last Admin: 12/06/17 13:11 Dose: 400 mg Insulin Detemir (Levemir) 10 unit SC HS [facility] Last Admin: 12/07/17 21:51 Dose: 10 unit Insulin Human Regular (Humulin R High) 0 units SC ACHS [facility] PRN Reason: Protocol Last Admin: 12/07/17 21:52 Dose: 2 units Levalbuterol HCl (Xopenex) 0.63 mg IH BIDRESP [facility] Last Admin: 12/07/17 19:45 Dose: 0.63 mg Lorazepam (Ativan) 1 mg IVP Q6H PRN; Protocol PRN Reason: Anxiety Last Admin: 12/02/17 07:42 Dose: 1 mg Multivitamins/Minerals (Therapeutic-M Tab) 1 tab PO 0800 [facility] Last Admin: 12/07/17 08:36 Dose: 1 tab Oseltamivir Phosphate (Tamiflu Cap) 75 mg PO BID [facility] PRN Reason: Protocol Stop: 12/11/17 12:59 Last Admin: 12/07/17 17:55 Dose: 75 mg Pantoprazole Sodium (Protonix Ec Tab) 40 mg PO ACB [facility] Last Admin: 12/07/17 08:37 Dose: 40 mg Thiamine HCl (Vitamin B1 Tab) 100 mg PO DAILY [facility] Last Admin: 12/07/17 11:06 Dose: 100 mg - Labs Labs: 12/07/17 06:15 12/07/17 06:15 PT 13.2 SECONDS (9.4-12.5) H 11/29/17 10:57 INR 1.14 (0.93-1.08) H 11/29/17 10:57 APTT 28.3 Seconds (25.1-36.5) 11/30/17 05:30 - Constitutional Appears: Unkempt - Head Exam Head Exam: ATRAUMATIC, NORMOCEPHALIC - Eye Exam Eye Exam: EOMI Pupil Exam: PERRL - ENT Exam ENT Exam: Mucous Membranes Moist - Respiratory Exam Respiratory Exam: absent: Rales, Rhonchi, Wheezes - Cardiovascular Exam Cardiovascular Exam: +S1, +S2. absent: Gallop, Rubs - GI/Abdominal Exam GI & Abdominal Exam: Soft. absent: Distended, Firm, Guarding, Rigid, Tenderness - Neurological Exam Neurological Exam: Alert, Awake - Psychiatric Exam Psychiatric exam: Normal Affect, Normal Mood - Skin Skin Exam: Dry, Intact, Normal Color, Warm Assessment and Plan - Assessment and Plan (Free Text) Plan: 57yo male with unknown history presents with altered mental status secondary to toxic metabolic encephalopthy/ischemic stroke in setting of influenza/bacteremia /pneumonia 1. Rectosigmoid mass 2. Hepatic mass 3. Sepsis 2/2 multifocal pneumonia/influenza/bacteremia 4. Ischemic stroke 5. Toxic metabolic encephalopathy Plan: -CT Chest/Abdomen/Pelvis reviewed; revealed a 7.2x2.0cm rectosigmoid intramural soft tissue density (see full report for further details) -Abdominal US reviewed; revealed nonspecific right hepatic masses measuring up to 4cm; metastases are not excluded; hepatomegaly, cholelithiasis -Flexible sigmoidoscopy/Colonoscopy to be arranged prior to patient discharge, will discuss with next of kin/POA; Continue current medical management for the time being -Hepatitis panel negative -Cdiff negative -AFP 1.0, CEA 32.2 -Rectal exam revealed no palpable masses or gross blood -Follow up neurology recommendations regarding AMS -Continue with antibiotics as per ID recommendations -Concern for endocarditis given findings on echo with potential valvular lesions <Lora Hartley - Last Filed: 12/08/17 14:06> Objective - Vital Signs/Intake and Output Vital Signs (last 24 hours): Temp Pulse Resp BP Pulse Ox 98.5 F 93 H 21 166/98 H 93 L 12/08/17 08:38 12/08/17 08:38 12/08/17 08:38 12/08/17 08:38 12/08/17 08:38 Intake and Output: 12/08/17 12/08/17 06:59 18:59 Intake Total 600 Balance 600 - Medications Medications: Current Medications Acetaminophen (Tylenol 325mg Tab) 650 mg PO Q6H PRN PRN Reason: Fever >100.4 F Last Admin: 12/05/17 11:08 Dose: 650 mg Acetylcysteine (Acetylcysteine 20%) 4 ml IH BIDRESP [facility] Last Admin: 12/08/17 08:29 Dose: 4 ml Aspirin (Ecotrin) 81 mg PO DAILY [facility] Last Admin: 12/08/17 09:57 Dose: 81 mg Atorvastatin Calcium (Lipitor) 40 mg PO DIN [facility] Last Admin: 12/04/17 16:27 Dose: 40 mg Folic Acid (Folic Acid) 1 mg PO DAILY [facility] Last Admin: 12/08/17 09:57 Dose: 1 mg Heparin Sodium (Porcine) (Heparin) 5,000 units SC Q12 [facility] PRN Reason: Protocol Last Admin: 12/08/17 10:00 Dose: 5,000 units Hydralazine HCl (Apresoline) 10 mg IVP Q6 PRN PRN Reason: For SBP > 150 Last Admin: 12/08/17 05:46 Dose: 10 mg Sodium Chloride (Sodium Chloride 0.9%) 1,000 mls @ 100 mls/hr IV .Q10H [facility] Last Admin: 12/06/17 06:14 Dose: 100 mls/hr Vancomycin HCl (Vancomycin 1gm) 1 gm in 250 mls @ 167 mls/hr IVPB Q12 [facility] PRN Reason: Protocol Last Admin: 12/08/17 10:02 Dose: 167 mls/hr Meropenem/Sodium Chloride (Meropenem 1g/Ns 100ml Ivpb) 1 gm in 100 mls @ 100 mls/hr IVPB Q8 [facility] PRN Reason: Protocol Stop: 12/14/17 22:01 Last Admin: 12/08/17 05:46 Dose: 100 mls/hr Ibuprofen (Motrin Tab) 400 mg PO Q6H PRN PRN Reason: Fever >100.4 F Last Admin: 12/06/17 13:11 Dose: 400 mg Insulin Detemir (Levemir) 10 unit SC HS [facility] Last Admin: 12/07/17 21:51 Dose: 10 unit Insulin Human Regular (Humulin R High) 0 units SC ACHS [facility] PRN Reason: Protocol Last Admin: 12/08/17 13:20 Dose: Not Given Levalbuterol HCl (Xopenex) 0.63 mg IH BIDRESP [facility] Last Admin: 12/08/17 08:29 Dose: 0.63 mg Lorazepam (Ativan) 1 mg IVP Q6H PRN; Protocol PRN Reason: Anxiety Last Admin: 12/02/17 07:42 Dose: 1 mg Multivitamins/Minerals (Therapeutic-M Tab) 1 tab PO 0800 [facility] Last Admin: 12/08/17 10:02 Dose: 1 tab Oseltamivir Phosphate (Tamiflu Cap) 75 mg PO BID [facility] PRN Reason: Protocol Stop: 12/11/17 12:59 Last Admin: 12/08/17 10:02 Dose: 75 mg Pantoprazole Sodium (Protonix Ec Tab) 40 mg PO ACB [facility] Last Admin: 12/08/17 10:05 Dose: 40 mg Thiamine HCl (Vitamin B1 Tab) 100 mg PO DAILY [facility] Last Admin: 12/08/17 10:02 Dose: 100 mg - Labs Labs: 12/08/17 05:40 12/08/17 05:40 PT 13.2 SECONDS (9.4-12.5) H 11/29/17 10:57 INR 1.14 (0.93-1.08) H 11/29/17 10:57 APTT 28.3 Seconds (25.1-36.5) 11/30/17 05:30 Attending/Attestation - Attestation I have personally seen and examined this patient.: Yes I have fully participated in the care of the patient.: Yes I have reviewed all pertinent clinical information, including history, physical exam and plan: Yes Notes (Text): 12/08/17 13:32 Patient seen with medical care manager and GI fellow on rounds this am. This is a 57 year old male with admitted with altered mental status, influenza, stroke, found to have likely metastatic colorectal cancer to the liver. He is currently on droplet isolation for Flu and is confused. His blood cultures are positive for Strep viridans for which he is receiving antibiotics. He is hemodynamically stable and tolerating diet. Imaging reveals colon and liver mass. Will plan for flex sig/ colonoscopy once acute issues have resolved and discussion with the family regarding consent.
[2017-12-08 06:53] LABS: BASO # 0.01 K/mm3 (0.0-2.0); BASO % 0.2 % (0.0-3.0); EOS # 0.1 (0.0-0.7); EOS % 1.3 % (1.5-5.0); GRAN # 3.03 (1.4-6.5); GRAN % 66.2 % (50.0-68.0); HEMOGLOBIN 11.7 g/dL (14.0-18.0); LYMPH # 1.1 (1.2-3.4); LYMPH % 24.2 % (22.0-35.0); MEAN CELL VOLUME 85.3 fl (80.0-105.0); MEAN CORPUSCULAR HEMOGLOBIN 27.3 pg (25.0-35.0); MEAN CORPUSCULAR HGB CONC 32.1 g/dl (31.0-37.0); MEAN PLATELET VOLUME 9.7 fl (7.0-11.0); MONO # 0.4 (0.1-0.6); MONO % 8.1 % (1.0-6.0); RBC 4.28 10^6/uL (3.5-6.1); RED CELL DISTRIBUTION WIDTH 15.2 % (11.5-14.5); WHITE BLOOD COUNT 4.6 10^3/ul (4.5-11.0)
[2017-12-08 07:07] LABS: ALB/GLOB RATIO 0.8 (1.1-1.8); ALBUMIN 2.6 g/dL (3.0-4.8); ALT/SGPT 58 U/L (7-56); AST/SGOT 87 U/L (17-59); BLOOD UREA NITROGEN 11 mg/dL (7-21); CALCIUM 8.5 mg/dL (8.4-10.5); GFR NON-AFRICAN AMERICAN > 60
[2017-12-08] MEDS: Levalbuterol 0.63 MG/3 ML Inhal Soln UD IH SCH ×2 (08:29→20:06)
[2017-12-08] MEDS: Acetylcysteine 20% Inhal Soln (4ml) IH SCH ×2 (08:29→20:06)
[2017-12-08] MEDS: Insulin Reg-HIGH-Coverage SC SCH ×4 (08:43→22:00)
[2017-12-08] MEDS: Vancomycin 1gm in NS 250ml 1 GM/250 ML BAG IVPB SCH ×2 (10:02→21:34)
[2017-12-08] MEDS: Multivitamin With Minerals Tab PO SCH (10:02)
[2017-12-08] MEDS: Pantoprazole 40 mg EC Tab PO SCH (10:05)
--- NOTE | 2017-12-08 13:55 | CP.PCM.PN ---
<Ryan White - Last Filed: 12/08/17 13:56> Subjective - Date & Time of Evaluation Date of Evaluation: 12/08/17 Time of Evaluation: 13:52 - Subjective Subjective: Medicine Progress Note: Patient seen and assessed at bedside. No acute events overnight noted by nursing staff or patient. Patients mental status and ability to verbally communicate continues to improve. Patient oriented to person and place but not to time or event. Patient denies headache, chest pain, SOB, abdominal pain, N/V/ D/C, pain with urination or numbness/tingling of any extremity. Objective - Vital Signs/Intake and Output Vital Signs (last 24 hours): Temp Pulse Resp BP Pulse Ox 98.5 F 93 H 21 166/98 H 93 L 12/08/17 08:38 12/08/17 08:38 12/08/17 08:38 12/08/17 08:38 12/08/17 08:38 Intake and Output: 12/08/17 12/08/17 06:59 18:59 Intake Total 600 Balance 600 - Medications Medications: Current Medications Acetaminophen (Tylenol 325mg Tab) 650 mg PO Q6H PRN PRN Reason: Fever >100.4 F Last Admin: 12/05/17 11:08 Dose: 650 mg Acetylcysteine (Acetylcysteine 20%) 4 ml IH BIDRESP [facility] Last Admin: 12/08/17 08:29 Dose: 4 ml Aspirin (Ecotrin) 81 mg PO DAILY [facility] Last Admin: 12/08/17 09:57 Dose: 81 mg Atorvastatin Calcium (Lipitor) 40 mg PO DIN [facility] Last Admin: 12/04/17 16:27 Dose: 40 mg Folic Acid (Folic Acid) 1 mg PO DAILY [facility] Last Admin: 12/08/17 09:57 Dose: 1 mg Heparin Sodium (Porcine) (Heparin) 5,000 units SC Q12 [facility] PRN Reason: Protocol Last Admin: 12/08/17 10:00 Dose: 5,000 units Hydralazine HCl (Apresoline) 10 mg IVP Q6 PRN PRN Reason: For SBP > 150 Last Admin: 12/08/17 05:46 Dose: 10 mg Sodium Chloride (Sodium Chloride 0.9%) 1,000 mls @ 100 mls/hr IV .Q10H [facility] Last Admin: 12/06/17 06:14 Dose: 100 mls/hr Vancomycin HCl (Vancomycin 1gm) 1 gm in 250 mls @ 167 mls/hr IVPB Q12 [facility] PRN Reason: Protocol Last Admin: 12/08/17 10:02 Dose: 167 mls/hr Meropenem/Sodium Chloride (Meropenem 1g/Ns 100ml Ivpb) 1 gm in 100 mls @ 100 mls/hr IVPB Q8 [facility] PRN Reason: Protocol Stop: 12/14/17 22:01 Last Admin: 12/08/17 05:46 Dose: 100 mls/hr Ibuprofen (Motrin Tab) 400 mg PO Q6H PRN PRN Reason: Fever >100.4 F Last Admin: 12/06/17 13:11 Dose: 400 mg Insulin Detemir (Levemir) 10 unit SC HS [facility] Last Admin: 12/07/17 21:51 Dose: 10 unit Insulin Human Regular (Humulin R High) 0 units SC ACHS [facility] PRN Reason: Protocol Last Admin: 12/08/17 13:20 Dose: Not Given Levalbuterol HCl (Xopenex) 0.63 mg IH BIDRESP [facility] Last Admin: 12/08/17 08:29 Dose: 0.63 mg Lorazepam (Ativan) 1 mg IVP Q6H PRN; Protocol PRN Reason: Anxiety Last Admin: 12/02/17 07:42 Dose: 1 mg Multivitamins/Minerals (Therapeutic-M Tab) 1 tab PO 0800 [facility] Last Admin: 12/08/17 10:02 Dose: 1 tab Oseltamivir Phosphate (Tamiflu Cap) 75 mg PO BID [facility] PRN Reason: Protocol Stop: 12/11/17 12:59 Last Admin: 12/08/17 10:02 Dose: 75 mg Pantoprazole Sodium (Protonix Ec Tab) 40 mg PO ACB [facility] Last Admin: 12/08/17 10:05 Dose: 40 mg Thiamine HCl (Vitamin B1 Tab) 100 mg PO DAILY [facility] Last Admin: 12/08/17 10:02 Dose: 100 mg - Labs Labs: 12/08/17 05:40 12/08/17 05:40 PT 13.2 SECONDS (9.4-12.5) H 11/29/17 10:57 INR 1.14 (0.93-1.08) H 11/29/17 10:57 APTT 28.3 Seconds (25.1-36.5) 11/30/17 05:30 - Constitutional Appears: No Acute Distress, Older Than Stated Age - Head Exam Head Exam: ATRAUMATIC, NORMOCEPHALIC - Eye Exam Eye Exam: EOMI, PERRL - ENT Exam ENT Exam: Mucous Membranes Moist - Neck Exam Neck Exam: Full ROM, Normal Inspection. absent: Lymphadenopathy - Respiratory Exam Respiratory Exam: Rhonchi (Trace in LLL, improved from previous exam), NORMAL BREATHING PATTERN. absent: Accessory Muscle Use, Chest Wall Tenderness, Decreased Breath Sounds, Clear to Ausculation Bilateral, Prolonged Expiratory Phase, Rales, Wheezes, Respiratory Distress - Cardiovascular Exam Cardiovascular Exam: REGULAR RHYTHM, +S1, +S2 - GI/Abdominal Exam GI & Abdominal Exam: Soft, Normal Bowel Sounds. absent: Distended, Firm, Guarding, Tenderness, Rebound - Extremities Exam Extremities Exam: Normal Capillary Refill. absent: Calf Tenderness, Joint Swelling, Pedal Edema, Tenderness - Neurological Exam Neurological Exam: Alert, Awake. absent: Oriented x3 - Skin Skin Exam: Dry, Warm. absent: Intact Additional comments: Erythematous rash extending from right lateral thigh to anal cleft; two stage 2 sacral decubitus ulcers of right lateral thigh and right gluteal region Assessment and Plan - Assessment and Plan (Free Text) Assessment: 57 year old male with an unknown past medical history who was brought in by ambulance after being found with an AMS and covered in feces in his apartment. His mental status has progressively improved since admission. He is currently on IV Vancomycin and Zozyn for coagulase negative staph and strep viridans bacteremia. Repeat blood cultures negative. An MRI Brain showed acute vs. subacute lacunar infarct in the left parietal region. Neurology is following and patient is on stroke prevention medication. Patient continues to have fevers while on antibiotic therapy and noted to have an echo with bubble study that couldn't rule out septic vegetations of the aortic valve. ID is following and recommends continuing antibiotics. Cardiology was consulted for TAHIR evaluation to rule out endocarditis and septic vegetations. Patient was found to have new colonic mass and multifocal pneumonia on CT chest/abdomen/pelvis and concerns for metastatic disease of the liver on abdominal ultrasound. GI was consulted. Plan: 1. Toxic-Metabolic Encephalopathy secondary to Strep Viridans/Coag Neg Staph Bacteremia -Repeat blood cultures negative for 72 hours -Continue IV Vancomycin (Day 9) and Merrem (Day 3) -Motrin 400mg Q6 PRN for fever -TAHIR to be done when patient medically optimized and consent obtained -OOB to chair QSHIFT -Cardiology, Neurology and ID consulted, all recommendations appreciated -PT/OT Evaluation pending 2. New Colonic Neoplasm -CT Chest/Abdomen/Pelvis showed 7.2x2.0cm rectosigmoid intramural soft tissue density that is suspicious for malignancy -Abdominal U/S showed nonspecific right hepatic masses measuring up to 4cm; metastases are not excluded; hepatomegaly, cholelithiasis -CEA elevated -Flexible sigmoidoscopy/Colonoscopy to be done when patient medically optimized and consent obtained -GI consulted, all recommendations appreciated 3. Multifocal Pneumonia -CT Chest/Abdomen/Pelvis showed probable multifocal pneumonia with abnormal findings in LLL and RUL; See full report for details -Continue IV Vancomycin (Day 9) and Merrem (Day 3) -Continue Xopenex and Mucormyst BID 4. Ischemic Stroke -Continue ASA 81mg -Lipitor 40mg currently held in setting of elevated LFT's 5. Transaminitis -Improving -Hepatitis panel negative -PRN Tylenol and Lipitor 40mg held -Continue to monitor with daily CMP's 6. History of Alcohol Abuse/Withdrawal -Continue Ativan 1mg IVP Q6H PRN -PO Folate, Thiamine, and MV supplementation -Fall, Seizure and Aspiration precautions 7. Hyperglycemia -SSI-High and Accuchecks ACHS -Levemir 10u HS -Carb Consistent Diet 8. HTN -Hydralazine 10mg IVP Q6 PRN 9. Stage 2 Sacral Decubitus Ulcers -Continue wound care -Continue Q2 repositioning GI Prophylaxis: Protonix DVT Prophylaxis: Heparin and SCD's Patient seen and case discussed with attending, Dr. Schumacher. Roxanne White, PGY-1 <Deanna Schumacher - Last Filed: 12/11/17 09:38> Objective - Vital Signs/Intake and Output Vital Signs (last 24 hours): Temp Pulse Resp BP Pulse Ox 97.4 F L 88 20 158/99 H 90 L 12/11/17 07:48 12/11/17 07:48 12/11/17 07:48 12/11/17 07:48 12/10/17 16:00 Intake and Output: 02/24/18 02/24/18 06:59 18:59 Intake Total 660 Balance 660 - Medications Medications: Current Medications Acetaminophen (Tylenol 325mg Tab) 650 mg PO Q6H PRN PRN Reason: Fever >100.4 F Last Admin: 12/05/17 11:08 Dose: 650 mg Acetylcysteine (Acetylcysteine 20%) 4 ml IH BIDRESP [facility] Last Admin: 12/11/17 07:31 Dose: 4 ml Amlodipine Besylate (Norvasc) 10 mg PO DAILY [facility] Last Admin: 12/10/17 10:27 Dose: 10 mg Aspirin (Ecotrin) 81 mg PO DAILY [facility] Last Admin: 12/10/17 10:25 Dose: 81 mg Atorvastatin Calcium (Lipitor) 40 mg PO DIN [facility] Last Admin: 12/04/17 16:27 Dose: 40 mg Clotrimazole (Lotrimin Af 1%) 0 ml TOP BID [facility] Last Admin: 12/10/17 17:42 Dose: 1 applic Folic Acid (Folic Acid) 1 mg PO DAILY [facility] Last Admin: 12/10/17 10:25 Dose: 1 mg Heparin Sodium (Porcine) (Heparin) 5,000 units SC Q12 [facility] PRN Reason: Protocol Last Admin: 12/10/17 22:19 Dose: 5,000 units Hydralazine HCl (Apresoline) 10 mg IVP Q6 PRN PRN Reason: For SBP > 150 Last Admin: 12/08/17 23:23 Dose: 10 mg Meropenem/Sodium Chloride (Meropenem 1g/Ns 100ml Ivpb) 1 gm in 100 mls @ 100 mls/hr IVPB Q8 [facility] PRN Reason: Protocol Stop: 12/14/17 22:01 Last Admin: 12/11/17 05:54 Dose: 100 mls/hr Ibuprofen (Motrin Tab) 400 mg PO Q6H PRN PRN Reason: Fever >100.4 F Last Admin: 12/10/17 23:04 Dose: 400 mg Insulin Detemir (Levemir) 10 unit SC HS [facility] Last Admin: 12/10/17 22:20 Dose: 10 unit Insulin Human Regular (Humulin R High) 0 units SC ACHS [facility] PRN Reason: Protocol Last Admin: 12/11/17 07:39 Dose: Not Given Levalbuterol HCl (Xopenex) 0.63 mg IH [id number] [facility] Last Admin: 12/11/17 07:32 Dose: 0.63 mg Lorazepam (Ativan) 1 mg IVP Q6H PRN; Protocol PRN Reason: Anxiety Last Admin: 12/10/17 03:45 Dose: 1 mg Multivitamins/Minerals (Therapeutic-M Tab) 1 tab PO 0800 [facility] Last Admin: 12/10/17 10:29 Dose: 1 tab Oseltamivir Phosphate (Tamiflu Cap) 75 mg PO BID [facility] PRN Reason: Protocol Stop: 12/11/17 12:59 Last Admin: 12/10/17 17:42 Dose: 75 mg Pantoprazole Sodium (Protonix Ec Tab) 40 mg PO ACB [facility] Last Admin: 12/10/17 10:28 Dose: 40 mg Potassium Chloride (K-Dur 20 Meq Er Tab) 40 meq PO BID [facility] Last Admin: 12/10/17 17:41 Dose: 40 meq Thiamine HCl (Vitamin B1 Tab) 100 mg PO DAILY [facility] Last Admin: 12/10/17 10:30 Dose: 100 mg - Labs Labs: 12/11/17 07:00 12/11/17 07:00 PT 12.5 SECONDS (9.4-12.5) 12/09/17 10:00 INR 1.09 (0.93-1.08) H 12/09/17 10:00 APTT 28.3 Seconds (25.1-36.5) 11/30/17 05:30 Attending/Attestation - Attestation I have personally seen and examined this patient.: Yes I have fully participated in the care of the patient.: Yes I have reviewed all pertinent clinical information, including history, physical exam and plan: Yes Notes (Text): 12/11/17 09:34 Patient was seen and examined with biomedical equipment specialist.Agreed with assessment and plan. Patient is afebrile, on room air, denies chest pain, palpitation or dyspnea. In Summary Mr Montano is 57 year old male with an unknown past medical history who was brought in by ambulance after being found with an AMS and covered in feces in his apartment. His mental status has progressively improved since admission.Blood cultures grew Streptococus viridan.Echo with bubble study couldn 't rule out septic vegetations of the aortic valve. ID is following and recommends continuing antibiotics. Case was discuused with Cardiology, no family is available to give consent for TAHIR. Patient is also found to have new colonic mass and multifocal pneumonia on CT chest/abdomen/pelvis and concerns for metastatic disease ?of the liver on abdominal ultrasound.MRI Brain showed acute vs. subacute lacunar infarct in the left parietal region Repeat blood cultures are negative to date He is currently on IV Vancomycin and Meropenem as per ID.Patient was also found to have influenza positive and has been started on Tamiflu. GI is planning for sigmoidoscopy for Rectosigmod lesion on CT abdomen and Pelvis. Hypokalemia, Replacement has been given. Prognosis is guarded.
--- NOTE | 2017-12-08 17:26 | CP.PCM.PN ---
Subjective - Date & Time of Evaluation Date of Evaluation: 12/08/17 Time of Evaluation: 10:15 - Subjective Subjective: Comfortable, no fevers, not in distress. Objective - Vital Signs/Intake and Output Vital Signs (last 24 hours): Temp Pulse Resp BP Pulse Ox 97.8 F 100 H 21 166/98 H 95 12/07/17 16:00 12/08/17 01:27 12/07/17 16:00 12/08/17 05:46 12/07/17 16:00 Intake and Output: 12/08/17 12/08/17 06:59 18:59 Intake Total 600 Balance 600 - Medications Medications: Current Medications Acetaminophen (Tylenol 325mg Tab) 650 mg PO Q6H PRN PRN Reason: Fever >100.4 F Last Admin: 12/05/17 11:08 Dose: 650 mg Acetylcysteine (Acetylcysteine 20%) 4 ml IH BIDRESP [facility] Last Admin: 12/08/17 08:29 Dose: 4 ml Aspirin (Ecotrin) 81 mg PO DAILY [facility] Last Admin: 12/07/17 11:06 Dose: 81 mg Atorvastatin Calcium (Lipitor) 40 mg PO DIN [facility] Last Admin: 12/04/17 16:27 Dose: 40 mg Folic Acid (Folic Acid) 1 mg PO DAILY [facility] Last Admin: 12/07/17 11:06 Dose: 1 mg Heparin Sodium (Porcine) (Heparin) 5,000 units SC Q12 [facility] PRN Reason: Protocol Hydralazine HCl (Apresoline) 10 mg IVP Q6 PRN PRN Reason: For SBP > 150 Last Admin: 12/08/17 05:46 Dose: 10 mg Sodium Chloride (Sodium Chloride 0.9%) 1,000 mls @ 100 mls/hr IV .Q10H [facility] Last Admin: 12/06/17 06:14 Dose: 100 mls/hr Vancomycin HCl (Vancomycin 1gm) 1 gm in 250 mls @ 167 mls/hr IVPB Q12 [facility] PRN Reason: Protocol Last Admin: 12/07/17 21:55 Dose: 167 mls/hr Meropenem/Sodium Chloride (Meropenem 1g/Ns 100ml Ivpb) 1 gm in 100 mls @ 100 mls/hr IVPB Q8 [facility] PRN Reason: Protocol Stop: 12/14/17 22:01 Last Admin: 12/08/17 05:46 Dose: 100 mls/hr Potassium Chloride (Potassium Chloride 20 Meq/100 Ml) 20 meq in 100 mls @ 50 mls/hr IVPB Q2H [facility] Stop: 12/08/17 11:59 Ibuprofen (Motrin Tab) 400 mg PO Q6H PRN PRN Reason: Fever >100.4 F Last Admin: 12/06/17 13:11 Dose: 400 mg Insulin Detemir (Levemir) 10 unit SC HS [facility] Last Admin: 12/07/17 21:51 Dose: 10 unit Insulin Human Regular (Humulin R High) 0 units SC ACHS [facility] PRN Reason: Protocol Last Admin: 12/07/17 21:52 Dose: 2 units Levalbuterol HCl (Xopenex) 0.63 mg IH BIDRESP [facility] Last Admin: 12/08/17 08:29 Dose: 0.63 mg Lorazepam (Ativan) 1 mg IVP Q6H PRN; Protocol PRN Reason: Anxiety Last Admin: 12/02/17 07:42 Dose: 1 mg Multivitamins/Minerals (Therapeutic-M Tab) 1 tab PO 0800 [facility] Last Admin: 12/07/17 08:36 Dose: 1 tab Oseltamivir Phosphate (Tamiflu Cap) 75 mg PO BID [facility] PRN Reason: Protocol Stop: 12/11/17 12:59 Last Admin: 12/07/17 17:55 Dose: 75 mg Pantoprazole Sodium (Protonix Ec Tab) 40 mg PO ACB [facility] Last Admin: 12/07/17 08:37 Dose: 40 mg Thiamine HCl (Vitamin B1 Tab) 100 mg PO DAILY [facility] Last Admin: 12/07/17 11:06 Dose: 100 mg - Labs Labs: 12/08/17 05:40 12/08/17 05:40 PT 13.2 SECONDS (9.4-12.5) H 11/29/17 10:57 INR 1.14 (0.93-1.08) H 11/29/17 10:57 APTT 28.3 Seconds (25.1-36.5) 11/30/17 05:30 - Constitutional Appears: Chronically Ill - Head Exam Head Exam: NORMAL INSPECTION - ENT Exam ENT Exam: Mucous Membranes Moist - Neck Exam Neck Exam: absent: Meningismus - Respiratory Exam Respiratory Exam: Decreased Breath Sounds - Cardiovascular Exam Cardiovascular Exam: +S1, +S2 - GI/Abdominal Exam GI & Abdominal Exam: Soft. absent: Tenderness Assessment and Plan - Assessment and Plan (Free Text) Plan: Assessment sepsis due to multifocal HCAP on top of Influenza A infection in this patient with strep viridans and CoNS bacteremia from right gluteal and back cellulitis Plan continue Vancomycin and Merrem and Tamiflu day 3 awaiting TAHIR when feasible will continue to monitor clinically
[2017-12-08] MEDS: Insulin Detemir 100 units/ml Vial (Levemir) SC SCH (21:35)
[2017-12-09] MEDS: Meropenem 1g/NS 100mL IVPB 1 GM/100 ML PIGGYBACK IVPB SCH ×3 (06:04→21:20)
[2017-12-09 06:34] LABS: BASO # 0.04 K/mm3 (0.0-2.0); BASO % 0.7 % (0.0-3.0); EOS # 0.1 (0.0-0.7); EOS % 2.4 % (1.5-5.0); GRAN # 3.09 (1.4-6.5); GRAN % 56.1 % (50.0-68.0); HEMOGLOBIN 12.5 g/dL (14.0-18.0); LYMPH # 1.8 (1.2-3.4); LYMPH % 32.1 % (22.0-35.0); MEAN CELL VOLUME 85.1 fl (80.0-105.0); MEAN CORPUSCULAR HEMOGLOBIN 27.7 pg (25.0-35.0); MEAN CORPUSCULAR HGB CONC 32.6 g/dl (31.0-37.0); MEAN PLATELET VOLUME 9.6 fl (7.0-11.0); MONO # 0.5 (0.1-0.6); MONO % 8.7 % (1.0-6.0); RBC 4.51 10^6/uL (3.5-6.1); RED CELL DISTRIBUTION WIDTH 15.2 % (11.5-14.5); WHITE BLOOD COUNT 5.5 10^3/ul (4.5-11.0)
[2017-12-09 07:21] LABS: ALB/GLOB RATIO 0.9 (1.1-1.8); ALBUMIN 2.9 g/dL (3.0-4.8); ALT/SGPT 69 U/L (7-56); AST/SGOT 69 U/L (17-59); BLOOD UREA NITROGEN 6 mg/dL (7-21); CALCIUM 8.9 mg/dL (8.4-10.5); GFR NON-AFRICAN AMERICAN > 60
[2017-12-09] MEDS: Acetylcysteine 20% Inhal Soln (4ml) IH SCH ×2 (07:35→20:44)
[2017-12-09] MEDS: Levalbuterol 0.63 MG/3 ML Inhal Soln UD IH SCH ×5 (07:35→23:44)
[2017-12-09] MEDS: Insulin Reg-HIGH-Coverage SC SCH ×4 (08:13→21:56)
--- NOTE | 2017-12-09 09:01 | CP.PCM.PN ---
<Miguel Dc - Last Filed: 12/09/17 09:13> Subjective - Date & Time of Evaluation Date of Evaluation: 12/09/17 Time of Evaluation: 06:45 - Subjective Subjective: GI progress note - Ruperto Vanda PGY2 Patient seen and examined at bedside this morning. Remains confused and unable to participate in meaningful conversation. Overnight, nursing reported that he became restless and tachypneic (o2sat 85%) and was subsequently given ativan and placed on nonrebreather. Otherwise, no reports of vomiting/diarrhea. 12point ROS limited due to patient status. Objective - Vital Signs/Intake and Output Vital Signs (last 24 hours): Temp Pulse Resp BP Pulse Ox 97.8 F 93 H 24 158/96 H 95 12/09/17 08:07 12/09/17 08:07 12/09/17 08:07 12/09/17 08:07 12/09/17 08:07 Intake and Output: 12/09/17 12/09/17 06:59 18:59 Intake Total 300 180 Balance 300 180 - Medications Medications: Current Medications Acetaminophen (Tylenol 325mg Tab) 650 mg PO Q6H PRN PRN Reason: Fever >100.4 F Last Admin: 12/05/17 11:08 Dose: 650 mg Acetylcysteine (Acetylcysteine 20%) 4 ml IH BIDRESP [facility] Last Admin: 12/09/17 07:35 Dose: 4 ml Aspirin (Ecotrin) 81 mg PO DAILY [facility] Last Admin: 12/08/17 09:57 Dose: 81 mg Atorvastatin Calcium (Lipitor) 40 mg PO DIN [facility] Last Admin: 12/04/17 16:27 Dose: 40 mg Folic Acid (Folic Acid) 1 mg PO DAILY [facility] Last Admin: 12/08/17 09:57 Dose: 1 mg Heparin Sodium (Porcine) (Heparin) 5,000 units SC Q12 [facility] PRN Reason: Protocol Last Admin: 12/08/17 21:35 Dose: 5,000 units Hydralazine HCl (Apresoline) 10 mg IVP Q6 PRN PRN Reason: For SBP > 150 Last Admin: 12/08/17 23:23 Dose: 10 mg Sodium Chloride (Sodium Chloride 0.9%) 1,000 mls @ 100 mls/hr IV .Q10H [facility] Last Admin: 02/19/18 06:14 Dose: 100 mls/hr Vancomycin HCl (Vancomycin 1gm) 1 gm in 250 mls @ 167 mls/hr IVPB Q12 [facility]I PRN Reason: Protocol Last Admin: 12/08/17 21:34 Dose: 167 mls/hr Meropenem/Sodium Chloride (Meropenem 1g/Ns 100ml Ivpb) 1 gm in 100 mls @ 100 mls/hr IVPB Q8 [facility]I PRN Reason: Protocol Stop: 12/14/17 22:01 Last Admin: 12/09/17 06:04 Dose: 100 mls/hr Potassium Chloride (Potassium Chloride 20 Meq/100 Ml) 20 meq in 100 mls @ 50 mls/hr IVPB Q2H [facility]I Stop: 12/09/17 12:14 Ibuprofen (Motrin Tab) 400 mg PO Q6H PRN PRN Reason: Fever >100.4 F Last Admin: 12/06/17 13:11 Dose: 400 mg Insulin Detemir (Levemir) 10 unit SC HS Y[facility]I Last Admin: 12/08/17 21:35 Dose: 10 unit Insulin Human Regular (Humulin R High) 0 units SC ACHS [facility]I PRN Reason: Protocol Last Admin: 12/09/17 08:13 Dose: Not Given Levalbuterol HCl (Xopenex) 0.63 mg IH BIDRESP [facility] Last Admin: 12/09/17 07:35 Dose: 0.63 mg Lorazepam (Ativan) 1 mg IVP Q6H PRN; Protocol PRN Reason: Anxiety Last Admin: 12/09/17 01:06 Dose: 1 mg Multivitamins/Minerals (Therapeutic-M Tab) 1 tab PO 0800 YOLI Last Admin: 12/08/17 10:02 Dose: 1 tab Oseltamivir Phosphate (Tamiflu Cap) 75 mg PO BID [facility]I PRN Reason: Protocol Stop: 12/11/17 12:59 Last Admin: 12/08/17 17:50 Dose: 75 mg Pantoprazole Sodium (Protonix Ec Tab) 40 mg PO ACB YOLI Last Admin: 12/08/17 10:05 Dose: 40 mg Thiamine HCl (Vitamin B1 Tab) 100 mg PO DAILY [facility] Last Admin: 12/08/17 10:02 Dose: 100 mg - Labs Labs: 12/09/17 05:45 12/09/17 05:45 PT 13.2 SECONDS (9.4-12.5) H 02/12/18 10:57 INR 1.14 (0.93-1.08) H 11/29/17 10:57 APTT 28.3 Seconds (25.1-36.5) 11/30/17 05:30 - Constitutional Appears: Confused - Head Exam Head Exam: ATRAUMATIC, NORMOCEPHALIC - Eye Exam Eye Exam: EOMI Pupil Exam: PERRL - ENT Exam ENT Exam: Mucous Membranes Moist - Respiratory Exam Respiratory Exam: absent: Rales, Rhonchi, Wheezes - Cardiovascular Exam Cardiovascular Exam: +S1, +S2. absent: Gallop, Rubs - GI/Abdominal Exam GI & Abdominal Exam: Soft. absent: Distended, Firm, Guarding, Rigid, Tenderness , Rebound - Neurological Exam Neurological Exam: Alert, Awake - Psychiatric Exam Psychiatric exam: Normal Affect, Normal Mood - Skin Skin Exam: Dry, Intact, Normal Color, Warm Assessment and Plan - Assessment and Plan (Free Text) Plan: 57yo male with unknown history presents with altered mental status secondary to toxic metabolic encephalopthy/ischemic stroke in setting of influenza/bacteremia /pneumonia 1. Rectosigmoid mass 2. Hepatic mass 3. Sepsis 2/2 multifocal pneumonia/influenza/bacteremia 4. Ischemic stroke 5. Toxic metabolic encephalopathy Plan: -CT Chest/Abdomen/Pelvis reviewed; revealed a 7.2x2.0cm rectosigmoid intramural soft tissue density (see full report for further details) -Abdominal US reviewed; revealed nonspecific right hepatic masses measuring up to 4cm; metastases are not excluded; hepatomegaly, cholelithiasis -Flexible sigmoidoscopy/Colonoscopy arranged for tomorrow, Continue current medical management for the time being -NPO past midnight -Hepatitis panel negative -Cdiff negative -AFP 1.0, CEA 32.2 -Rectal exam revealed no palpable masses or gross blood -Follow up neurology recommendations regarding AMS -Continue with antibiotics as per ID recommendations -Concern for endocarditis given findings on echo with potential valvular lesions <Manuel Fuentes - Last Filed: 12/09/17 10:39> Objective - Vital Signs/Intake and Output Vital Signs (last 24 hours): Temp Pulse Resp BP Pulse Ox 97.8 F 93 H 24 158/96 H 95 12/09/17 08:07 12/09/17 08:07 12/09/17 08:07 12/09/17 08:07 02/22/18 08:07 Intake and Output: 12/09/17 12/09/17 06:59 18:59 Intake Total 300 180 Balance 300 180 - Medications Medications: Current Medications Acetaminophen (Tylenol 325mg Tab) 650 mg PO Q6H PRN PRN Reason: Fever >100.4 F Last Admin: 12/05/17 11:08 Dose: 650 mg Acetylcysteine (Acetylcysteine 20%) 4 ml IH BIDRESP [facility] Last Admin: 12/09/17 07:35 Dose: 4 ml Aspirin (Ecotrin) 81 mg PO DAILY [facility] Last Admin: 12/08/17 09:57 Dose: 81 mg Atorvastatin Calcium (Lipitor) 40 mg PO DIN [facility] Last Admin: 12/04/17 16:27 Dose: 40 mg Folic Acid (Folic Acid) 1 mg PO DAILY [facility] Last Admin: 12/08/17 09:57 Dose: 1 mg Heparin Sodium (Porcine) (Heparin) 5,000 units SC Q12 Y[facility]I PRN Reason: Protocol Last Admin: 12/08/17 21:35 Dose: 5,000 units Hydralazine HCl (Apresoline) 10 mg IVP Q6 PRN PRN Reason: For SBP > 150 Last Admin: 12/08/17 23:23 Dose: 10 mg Sodium Chloride (Sodium Chloride 0.9%) 1,000 mls @ 100 mls/hr IV .Q10H [facility] Last Admin: 12/06/17 06:14 Dose: 100 mls/hr Vancomycin HCl (Vancomycin 1gm) 1 gm in 250 mls @ 167 mls/hr IVPB Q12 [facility] PRN Reason: Protocol Last Admin: 12/08/17 21:34 Dose: 167 mls/hr Meropenem/Sodium Chloride (Meropenem 1g/Ns 100ml Ivpb) 1 gm in 100 mls @ 100 mls/hr IVPB Q8 [facility] PRN Reason: Protocol Stop: 12/14/17 22:01 Last Admin: 12/09/17 06:04 Dose: 100 mls/hr Potassium Chloride (Potassium Chloride 20 Meq/100 Ml) 20 meq in 100 mls @ 50 mls/hr IVPB Q2H [facility] Stop: 12/09/17 12:14 Ibuprofen (Motrin Tab) 400 mg PO Q6H PRN PRN Reason: Fever >100.4 F Last Admin: 12/06/17 13:11 Dose: 400 mg Insulin Detemir (Levemir) 10 unit SC HS [facility]I Last Admin: 12/08/17 21:35 Dose: 10 unit Insulin Human Regular (Humulin R High) 0 units SC ACHS [facility]I PRN Reason: Protocol Last Admin: 12/09/17 08:13 Dose: Not Given Levalbuterol HCl (Xopenex) 0.63 mg IH BIDRESP [facility] Last Admin: 12/09/17 07:35 Dose: 0.63 mg Lorazepam (Ativan) 1 mg IVP Q6H PRN; Protocol PRN Reason: Anxiety Last Admin: 12/09/17 01:06 Dose: 1 mg Multivitamins/Minerals (Therapeutic-M Tab) 1 tab PO 0800 [facility] Last Admin: 12/08/17 10:02 Dose: 1 tab Oseltamivir Phosphate (Tamiflu Cap) 75 mg PO BID [facility] PRN Reason: Protocol Stop: 12/11/17 12:59 Last Admin: 12/08/17 17:50 Dose: 75 mg Pantoprazole Sodium (Protonix Ec Tab) 40 mg PO ACB [facility] Last Admin: 12/08/17 10:05 Dose: 40 mg Thiamine HCl (Vitamin B1 Tab) 100 mg PO DAILY [facility] Last Admin: 12/08/17 10:02 Dose: 100 mg - Labs Labs: 12/09/17 05:45 12/09/17 05:45 PT 12.5 SECONDS (9.4-12.5) 12/09/17 10:00 INR 1.09 (0.93-1.08) H 12/09/17 10:00 APTT 28.3 Seconds (25.1-36.5) 11/30/17 05:30 Attending/Attestation - Attestation I have personally seen and examined this patient.: Yes I have fully participated in the care of the patient.: Yes I have reviewed all pertinent clinical information, including history, physical exam and plan: Yes Notes (Text): 12/09/17 10:39 57 year old male with admitted with altered mental status, influenza, stroke, found to have likely metastatic colorectal cancer to the liver. 1. Colon mass 2. Liver mass Plan: -presumed metastatic colon cancer -when patient medically optimized, may consider flex sig with biopsy, possibly tomorrow -patient seems unlikely to tolerate prep at this stage -on antibiotics per ID for pneumonia
[2017-12-09 10:13] LABS: PROTHROMBIN TIME 12.5 SECONDS (9.4-12.5)
[2017-12-09 10:14] LABS: INR 1.09 (0.93-1.08)
[2017-12-09] MEDS: Vancomycin 1gm in NS 250ml 1 GM/250 ML BAG IVPB SCH ×2 (11:15→21:19)
[2017-12-09] MEDS: Multivitamin With Minerals Tab PO SCH (11:16)
[2017-12-09] MEDS: Pantoprazole 40 mg EC Tab PO SCH (11:19)
--- NOTE | 2017-12-09 11:52 | RAD ---
HISTORY: Wheezing COMPARISON: 12/05/2017 FINDINGS: LUNGS: There is vascular congestion with increasing perihilar infiltrates. Findings are most likely due to CHF PLEURA: No significant pleural effusion identified, no pneumothorax apparent. CARDIOVASCULAR: Normal. OSSEOUS STRUCTURES: No significant abnormalities. VISUALIZED UPPER ABDOMEN: Normal. OTHER FINDINGS: None. IMPRESSION: There is vascular congestion with increasing perihilar infiltrates. Findings are most likely due to CHF
--- NOTE | 2017-12-09 12:08 | CP.PCM.PN ---
<Ryan White - Last Filed: 12/09/17 12:01> Subjective - Date & Time of Evaluation Date of Evaluation: 12/09/17 Time of Evaluation: 12:02 - Subjective Subjective: Medicine Progress Note: Patient seen and assessed at bedside. Patient was noted to be agitated overnight requiring one dose of PRN Ativan. Patient subsequently became hypoxic requiring supplemental oxygen via NRB, which resolved the hypoxemia. Currently, patient's mental status and ability to verbally communicate are stable. Patient oriented to person and place but not to time or event. Patient denies headache, chest pain, SOB, abdominal pain, N/V/D/C, pain with urination or numbness/ tingling of any extremity. Objective - Vital Signs/Intake and Output Vital Signs (last 24 hours): Temp Pulse Resp BP Pulse Ox 97.8 F 93 H 24 158/96 H 95 12/09/17 08:07 12/09/17 08:07 12/09/17 08:07 12/09/17 08:07 12/09/17 08:07 Intake and Output: 12/09/17 12/09/17 06:59 18:59 Intake Total 300 180 Balance 300 180 - Medications Medications: Current Medications Acetaminophen (Tylenol 325mg Tab) 650 mg PO Q6H PRN PRN Reason: Fever >100.4 F Last Admin: 12/05/17 11:08 Dose: 650 mg Acetylcysteine (Acetylcysteine 20%) 4 ml IH BIDRESP [facility] Last Admin: 12/09/17 07:35 Dose: 4 ml Amlodipine Besylate (Norvasc) 10 mg PO DAILY [facility] Aspirin (Ecotrin) 81 mg PO DAILY [facility] Last Admin: 12/09/17 11:16 Dose: 81 mg Atorvastatin Calcium (Lipitor) 40 mg PO DIN [facility] Last Admin: 12/04/17 16:27 Dose: 40 mg Folic Acid (Folic Acid) 1 mg PO DAILY [facility] Last Admin: 12/09/17 11:16 Dose: 1 mg Heparin Sodium (Porcine) (Heparin) 5,000 units SC Q12 [facility]I PRN Reason: Protocol Last Admin: 12/09/17 12:01 Dose: 5,000 units Hydralazine HCl (Apresoline) 10 mg IVP Q6 PRN PRN Reason: For SBP > 150 Last Admin: 12/08/17 23:23 Dose: 10 mg Vancomycin HCl (Vancomycin 1gm) 1 gm in 250 mls @ 167 mls/hr IVPB Q12 [facility] PRN Reason: Protocol Last Admin: 12/09/17 11:15 Dose: 167 mls/hr Meropenem/Sodium Chloride (Meropenem 1g/Ns 100ml Ivpb) 1 gm in 100 mls @ 100 mls/hr IVPB Q8 [facility] PRN Reason: Protocol Stop: 12/14/17 22:01 Last Admin: 12/09/17 06:04 Dose: 100 mls/hr Potassium Chloride (Potassium Chloride 20 Meq/100 Ml) 20 meq in 100 mls @ 50 mls/hr IVPB Q2H [facility] Stop: 12/09/17 12:14 Last Admin: 12/09/17 11:19 Dose: 50 mls/hr Ibuprofen (Motrin Tab) 400 mg PO Q6H PRN PRN Reason: Fever >100.4 F Last Admin: 12/06/17 13:11 Dose: 400 mg Insulin Detemir (Levemir) 10 unit SC HS [facility] Last Admin: 12/08/17 21:35 Dose: 10 unit Insulin Human Regular (Humulin R High) 0 units SC ACHS [facility] PRN Reason: Protocol Last Admin: 12/09/17 08:13 Dose: Not Given Levalbuterol HCl (Xopenex) 0.63 mg IH [id number] [facility] Last Admin: 12/09/17 11:52 Dose: 0.63 mg Lorazepam (Ativan) 1 mg IVP Q6H PRN; Protocol PRN Reason: Anxiety Last Admin: 12/09/17 01:06 Dose: 1 mg Multivitamins/Minerals (Therapeutic-M Tab) 1 tab PO 0800 [facility] Last Admin: 12/09/17 11:16 Dose: 1 tab Oseltamivir Phosphate (Tamiflu Cap) 75 mg PO BID [facility] PRN Reason: Protocol Stop: 12/11/17 12:59 Last Admin: 12/09/17 11:16 Dose: 75 mg Pantoprazole Sodium (Protonix Ec Tab) 40 mg PO ACB [facility] Last Admin: 12/09/17 11:19 Dose: 40 mg Potassium Chloride (K-Dur 20 Meq Er Tab) 40 meq PO BID [facility] Thiamine HCl (Vitamin B1 Tab) 100 mg PO DAILY [facility] Last Admin: 12/09/17 11:16 Dose: 100 mg - Labs Labs: 12/09/17 05:45 12/09/17 05:45 PT 12.5 SECONDS (9.4-12.5) 12/09/17 10:00 INR 1.09 (0.93-1.08) H 12/09/17 10:00 APTT 28.3 Seconds (25.1-36.5) 11/30/17 05:30 - Constitutional Appears: No Acute Distress - Head Exam Head Exam: ATRAUMATIC, NORMOCEPHALIC - Eye Exam Eye Exam: EOMI, Normal appearance, PERRL - ENT Exam ENT Exam: Mucous Membranes Moist, Normal Exam - Neck Exam Neck Exam: Full ROM, Normal Inspection. absent: Lymphadenopathy - Respiratory Exam Respiratory Exam: Wheezes (Scattered in upper lung hartley), NORMAL BREATHING PATTERN. absent: Accessory Muscle Use, Chest Wall Tenderness, Decreased Breath Sounds, Clear to Ausculation Bilateral, Prolonged Expiratory Phase, Rales, Rhonchi, Respiratory Distress, Stridor - Cardiovascular Exam Cardiovascular Exam: REGULAR RHYTHM, RRR, +S1, +S2. absent: Tachycardia - GI/Abdominal Exam GI & Abdominal Exam: Soft, Normal Bowel Sounds. absent: Tenderness - Extremities Exam Extremities Exam: Normal Capillary Refill. absent: Calf Tenderness, Joint Swelling, Pedal Edema - Neurological Exam Neurological Exam: Alert, Awake. absent: Oriented x3 - Skin Skin Exam: Dry, Warm Additional comments: Erythematous rash extending from right lateral thigh to anal cleft; two stage 2 sacral decubitus ulcers of right lateral thigh and right gluteal region Assessment and Plan - Assessment and Plan (Free Text) Assessment: 57 year old male with an unknown past medical history who was brought in by ambulance after being found with an AMS and covered in feces in his apartment. His mental status has progressively improved since admission. He is currently on IV Vancomycin and Zozyn for coagulase negative staph and strep viridans bacteremia. Repeat blood cultures negative. An MRI Brain showed acute vs. subacute lacunar infarct in the left parietal region. Neurology is following and patient is on stroke prevention medication. Patient continues to have fevers while on antibiotic therapy and noted to have an echo with bubble study that couldn't rule out septic vegetations of the aortic valve. ID is following and recommends continuing antibiotics. Cardiology was consulted for TAHIR evaluation to rule out endocarditis and septic vegetations. Patient was found to have new colonic mass and multifocal pneumonia on CT chest/abdomen/pelvis and concerns for metastatic disease of the liver on abdominal ultrasound. GI was consulted. Plan: 1. Toxic-Metabolic Encephalopathy secondary to Strep Viridans/Coag Neg Staph Bacteremia -Repeat blood cultures negative for 96 hours -Continue IV Vancomycin (Day 10) and Merrem (Day 4) -Motrin 400mg Q6 PRN for fever -TAHIR to be done when patient medically optimized and consent obtained -Cardiology, Neurology and ID consulted, all recommendations appreciated -PT/OT recommending continued PT and JOSIAH upon discharge 2. New Colonic Neoplasm -CT Chest/Abdomen/Pelvis showed 7.2x2.0cm rectosigmoid intramural soft tissue density that is suspicious for malignancy -Abdominal U/S showed nonspecific right hepatic masses measuring up to 4cm; metastases are not excluded; hepatomegaly, cholelithiasis -CEA elevated -Flexible sigmoidoscopy/Colonoscopy to be done when patient medically optimized and consent obtained, with the possibility of this being done tomorrow -GI consulted, all recommendations appreciated 3. Multifocal Pneumonia -CT Chest/Abdomen/Pelvis showed probable multifocal pneumonia with abnormal findings in LLL and RUL; See full report for details -Repeat Chest X-Ray pending -Continue IV Vancomycin (Day 10) and Merrem (Day 4) -Increased Xopenex to [id number] and continued Mucormyst BID 4. Influenza -Positive for influenza -Continue Tamiflu (Day 3) -Continue droplet precautions 5. Ischemic Stroke -Continue ASA 81mg -Lipitor 40mg currently held in setting of elevated LFT's 6. Transaminitis -Hepatitis panel negative -PRN Tylenol and Lipitor 40mg held -Continue to monitor with daily CMP's 7. History of Alcohol Abuse/Withdrawal -Continue Ativan 1mg IVP Q6H PRN -PO Folate, Thiamine, and MV supplementation -Fall, Seizure and Aspiration precautions 8. Hyperglycemia -SSI-High and Accuchecks ACHS -Levemir 10u HS -Carb Consistent Diet 9. HTN -Started Norvasc 10mg PO daily -Hydralazine 10mg IVP Q6 PRN 10. Stage 2 Sacral Decubitus Ulcers -Continue wound care -Continue Q2 repositioning GI Prophylaxis: Protonix DVT Prophylaxis: Heparin and SCD's Patient seen and case discussed with attending, Dr. Schumacher. Roxanne White, PGY-1 <Deanna Schumacher - Last Filed: 12/11/17 09:41> Objective - Vital Signs/Intake and Output Vital Signs (last 24 hours): Temp Pulse Resp BP Pulse Ox 97.4 F L 88 20 158/99 H 90 L 12/11/17 07:48 12/11/17 07:48 12/11/17 07:48 12/11/17 07:48 12/10/17 16:00 Intake and Output: 12/11/17 12/11/17 06:59 18:59 Intake Total 660 Balance 660 - Medications Medications: Current Medications Acetaminophen (Tylenol 325mg Tab) 650 mg PO Q6H PRN PRN Reason: Fever >100.4 F Last Admin: 12/05/17 11:08 Dose: 650 mg Acetylcysteine (Acetylcysteine 20%) 4 ml IH BIDRESP [facility] Last Admin: 12/11/17 07:31 Dose: 4 ml Amlodipine Besylate (Norvasc) 10 mg PO DAILY [facility] Last Admin: 12/10/17 10:27 Dose: 10 mg Aspirin (Ecotrin) 81 mg PO DAILY [facility] Last Admin: 12/10/17 10:25 Dose: 81 mg Atorvastatin Calcium (Lipitor) 40 mg PO DIN [facility] Last Admin: 12/04/17 16:27 Dose: 40 mg Clotrimazole (Lotrimin Af 1%) 0 ml TOP BID [facility] Last Admin: 12/10/17 17:42 Dose: 1 applic Folic Acid (Folic Acid) 1 mg PO DAILY [facility] Last Admin: 12/10/17 10:25 Dose: 1 mg Heparin Sodium (Porcine) (Heparin) 5,000 units SC Q12 [facility] PRN Reason: Protocol Last Admin: 12/10/17 22:19 Dose: 5,000 units Hydralazine HCl (Apresoline) 10 mg IVP Q6 PRN PRN Reason: For SBP > 150 Last Admin: 12/08/17 23:23 Dose: 10 mg Meropenem/Sodium Chloride (Meropenem 1g/Ns 100ml Ivpb) 1 gm in 100 mls @ 100 mls/hr IVPB Q8 [facility] PRN Reason: Protocol Stop: 12/14/17 22:01 Last Admin: 12/11/17 05:54 Dose: 100 mls/hr Ibuprofen (Motrin Tab) 400 mg PO Q6H PRN PRN Reason: Fever >100.4 F Last Admin: 12/10/17 23:04 Dose: 400 mg Insulin Detemir (Levemir) 10 unit SC HS [facility] Last Admin: 12/10/17 22:20 Dose: 10 unit Insulin Human Regular (Humulin R High) 0 units SC ACHS [facility] PRN Reason: Protocol Last Admin: 12/11/17 07:39 Dose: Not Given Levalbuterol HCl (Xopenex) 0.63 mg IH [id number] [facility] Last Admin: 12/11/17 07:32 Dose: 0.63 mg Lorazepam (Ativan) 1 mg IVP Q6H PRN; Protocol PRN Reason: Anxiety Last Admin: 12/10/17 03:45 Dose: 1 mg Multivitamins/Minerals (Therapeutic-M Tab) 1 tab PO 0800 [facility] Last Admin: 12/10/17 10:29 Dose: 1 tab Oseltamivir Phosphate (Tamiflu Cap) 75 mg PO BID [facility] PRN Reason: Protocol Stop: 12/11/17 12:59 Last Admin: 12/10/17 17:42 Dose: 75 mg Pantoprazole Sodium (Protonix Ec Tab) 40 mg PO ACB [facility] Last Admin: 12/10/17 10:28 Dose: 40 mg Potassium Chloride (K-Dur 20 Meq Er Tab) 40 meq PO BID [facility] Last Admin: 12/10/17 17:41 Dose: 40 meq Thiamine HCl (Vitamin B1 Tab) 100 mg PO DAILY [facility] Last Admin: 12/10/17 10:30 Dose: 100 mg - Labs Labs: 12/11/17 07:00 12/11/17 07:00 PT 12.5 SECONDS (9.4-12.5) 12/09/17 10:00 INR 1.09 (0.93-1.08) H 12/09/17 10:00 APTT 28.3 Seconds (25.1-36.5) 11/30/17 05:30 Attending/Attestation - Attestation I have personally seen and examined this patient.: Yes I have fully participated in the care of the patient.: Yes I have reviewed all pertinent clinical information, including history, physical exam and plan: Yes Notes (Text): 12/11/17 09:39 Patient was seen and examined with medical physiologist.Agreed with assessment and plan. Patient is afebrile, on room air, stable at base line.He is awake but not oriented, no overnight issue In Summary Mr Montano is 57 year old male with an unknown past medical history who was brought in by ambulance after being found with an AMS and covered in feces in his apartment. His mental status has progressively improved since admission.Blood cultures grew Streptococus viridan.Echo with bubble study couldn 't rule out septic vegetations of the aortic valve. Family is available to give consent for TAHIR. Patient is also found to have new colonic mass and multifocal pneumonia on CT chest/abdomen/pelvis and concerns for metastatic disease ?of the liver on abdominal ultrasound.MRI Brain showed acute vs. subacute lacunar infarct in the left parietal region.Repeat blood cultures are negative to date He is currently on IV Vancomycin and Meropenem as per ID.Patient was also found to have influenza positive and is on Tamiflu. GI is planning for sigmoidoscopy for Rectosigmod lesion on CT abdomen and Pelvis.Family is not available to give the consent for the procedure. Prognosis is guarded.
--- NOTE | 2017-12-09 12:17 | CP.PCM.PN ---
Subjective - Date & Time of Evaluation Date of Evaluation: 12/09/17 Time of Evaluation: 10:05 - Subjective Subjective: Feels better, no fevers, no diarrhea. Objective - Vital Signs/Intake and Output Vital Signs (last 24 hours): Temp Pulse Resp BP Pulse Ox 97.8 F 93 H 24 158/96 H 95 12/09/17 08:07 12/09/17 08:07 12/09/17 08:07 12/09/17 08:07 12/09/17 08:07 Intake and Output: 12/09/17 12/09/17 06:59 18:59 Intake Total 300 180 Balance 300 180 - Medications Medications: Current Medications Acetaminophen (Tylenol 325mg Tab) 650 mg PO Q6H PRN PRN Reason: Fever >100.4 F Last Admin: 12/05/17 11:08 Dose: 650 mg Acetylcysteine (Acetylcysteine 20%) 4 ml IH BIDRESP [facility] Last Admin: 12/09/17 07:35 Dose: 4 ml Aspirin (Ecotrin) 81 mg PO DAILY [facility] Last Admin: 12/08/17 09:57 Dose: 81 mg Atorvastatin Calcium (Lipitor) 40 mg PO DIN [facility] Last Admin: 12/04/17 16:27 Dose: 40 mg Folic Acid (Folic Acid) 1 mg PO DAILY [facility] Last Admin: 12/08/17 09:57 Dose: 1 mg Heparin Sodium (Porcine) (Heparin) 5,000 units SC Q12 [facility] PRN Reason: Protocol Last Admin: 12/08/17 21:35 Dose: 5,000 units Hydralazine HCl (Apresoline) 10 mg IVP Q6 PRN PRN Reason: For SBP > 150 Last Admin: 12/08/17 23:23 Dose: 10 mg Sodium Chloride (Sodium Chloride 0.9%) 1,000 mls @ 100 mls/hr IV .Q10H [facility] Last Admin: 12/06/17 06:14 Dose: 100 mls/hr Vancomycin HCl (Vancomycin 1gm) 1 gm in 250 mls @ 167 mls/hr IVPB Q12 [facility] PRN Reason: Protocol Last Admin: 12/08/17 21:34 Dose: 167 mls/hr Meropenem/Sodium Chloride (Meropenem 1g/Ns 100ml Ivpb) 1 gm in 100 mls @ 100 mls/hr IVPB Q8 [facility] PRN Reason: Protocol Stop: 12/14/17 22:01 Last Admin: 12/09/17 06:04 Dose: 100 mls/hr Potassium Chloride (Potassium Chloride 20 Meq/100 Ml) 20 meq in 100 mls @ 50 mls/hr IVPB Q2H [facility] Stop: 12/09/17 12:14 Ibuprofen (Motrin Tab) 400 mg PO Q6H PRN PRN Reason: Fever >100.4 F Last Admin: 12/06/17 13:11 Dose: 400 mg Insulin Detemir (Levemir) 10 unit SC HS [facility] Last Admin: 12/08/17 21:35 Dose: 10 unit Insulin Human Regular (Humulin R High) 0 units SC ACHS [facility] PRN Reason: Protocol Last Admin: 12/09/17 08:13 Dose: Not Given Levalbuterol HCl (Xopenex) 0.63 mg IH BIDRESP [facility] Last Admin: 12/09/17 07:35 Dose: 0.63 mg Lorazepam (Ativan) 1 mg IVP Q6H PRN; Protocol PRN Reason: Anxiety Last Admin: 12/09/17 01:06 Dose: 1 mg Multivitamins/Minerals (Therapeutic-M Tab) 1 tab PO 0800 [facility] Last Admin: 12/08/17 10:02 Dose: 1 tab Oseltamivir Phosphate (Tamiflu Cap) 75 mg PO BID [facility] PRN Reason: Protocol Stop: 12/11/17 12:59 Last Admin: 12/08/17 17:50 Dose: 75 mg Pantoprazole Sodium (Protonix Ec Tab) 40 mg PO ACB [facility] Last Admin: 12/08/17 10:05 Dose: 40 mg Thiamine HCl (Vitamin B1 Tab) 100 mg PO DAILY [facility] Last Admin: 12/08/17 10:02 Dose: 100 mg - Labs Labs: 12/09/17 05:45 12/09/17 05:45 PT 13.2 SECONDS (9.4-12.5) H 11/29/17 10:57 INR 1.14 (0.93-1.08) H 11/29/17 10:57 APTT 28.3 Seconds (25.1-36.5) 11/30/17 05:30 - Constitutional Appears: Chronically Ill - Head Exam Head Exam: NORMAL INSPECTION - ENT Exam ENT Exam: Mucous Membranes Moist - Neck Exam Neck Exam: absent: Meningismus - Respiratory Exam Respiratory Exam: Decreased Breath Sounds - Cardiovascular Exam Cardiovascular Exam: +S1, +S2 - GI/Abdominal Exam GI & Abdominal Exam: Soft. absent: Tenderness Assessment and Plan - Assessment and Plan (Free Text) Plan: Assessment sepsis due to multifocal HCAP on top of Influenza A infection in this patient with strep viridans and CoNS bacteremia from right gluteal and back cellulitis, R/O Sammie infection of sacral area as well Plan continue Vancomycin and Merrem and Tamiflu day 4 will start topical antifungal over sacral area as well awaiting TAHIR when feasible will continue to monitor clinically
--- NOTE | 2017-12-09 13:47 | CP.PCM.PN ---
Subjective - Date & Time of Evaluation Date of Evaluation: 12/09/17 Time of Evaluation: 13:45 - Subjective Subjective: Mr. Montano was seen and examined at the bedside. He is awake, but confused. He is unable to state person, place, and time. He is able to follow simple commands such as raising her bilateral upper extremities and moves his lower extremities.. He remains on droplet isolation due to flu.There was no untoward events overnight. Objective - Vital Signs/Intake and Output Vital Signs (last 24 hours): Temp Pulse Resp BP Pulse Ox 97.8 F 93 H 24 145/82 95 12/09/17 08:07 12/09/17 08:07 12/09/17 08:07 12/09/17 13:37 12/09/17 08:07 Intake and Output: 12/09/17 12/09/17 06:59 18:59 Intake Total 300 180 Balance 300 180 - Medications Medications: Current Medications Acetaminophen (Tylenol 325mg Tab) 650 mg PO Q6H PRN PRN Reason: Fever >100.4 F Last Admin: 12/05/17 11:08 Dose: 650 mg Acetylcysteine (Acetylcysteine 20%) 4 ml IH BIDRESP [facility] Last Admin: 12/09/17 07:35 Dose: 4 ml Amlodipine Besylate (Norvasc) 10 mg PO DAILY [facility] Aspirin (Ecotrin) 81 mg PO DAILY [facility] Last Admin: 12/09/17 11:16 Dose: 81 mg Atorvastatin Calcium (Lipitor) 40 mg PO DIN [facility] Last Admin: 12/04/17 16:27 Dose: 40 mg Clotrimazole (Lotrimin Af 1%) 0 ml TOP BID [facility] Folic Acid (Folic Acid) 1 mg PO DAILY [facility] Last Admin: 12/09/17 11:16 Dose: 1 mg Heparin Sodium (Porcine) (Heparin) 5,000 units SC Q12 [facility] PRN Reason: Protocol Last Admin: 12/09/17 12:01 Dose: 5,000 units Hydralazine HCl (Apresoline) 10 mg IVP Q6 PRN PRN Reason: For SBP > 150 Last Admin: 12/08/17 23:23 Dose: 10 mg Vancomycin HCl (Vancomycin 1gm) 1 gm in 250 mls @ 167 mls/hr IVPB Q12 [facility] PRN Reason: Protocol Last Admin: 12/09/17 11:15 Dose: 167 mls/hr Meropenem/Sodium Chloride (Meropenem 1g/Ns 100ml Ivpb) 1 gm in 100 mls @ 100 mls/hr IVPB Q8 [facility] PRN Reason: Protocol Stop: 12/14/17 22:01 Last Admin: 12/09/17 13:37 Dose: 100 mls/hr Ibuprofen (Motrin Tab) 400 mg PO Q6H PRN PRN Reason: Fever >100.4 F Last Admin: 12/06/17 13:11 Dose: 400 mg Insulin Detemir (Levemir) 10 unit SC HS [facility] Last Admin: 12/08/17 21:35 Dose: 10 unit Insulin Human Regular (Humulin R High) 0 units SC ACHS [facility] PRN Reason: Protocol Last Admin: 12/09/17 12:43 Dose: 2 units Levalbuterol HCl (Xopenex) 0.63 mg IH [id number] [facility] Last Admin: 12/09/17 11:52 Dose: 0.63 mg Lorazepam (Ativan) 1 mg IVP Q6H PRN; Protocol PRN Reason: Anxiety Last Admin: 12/09/17 01:06 Dose: 1 mg Multivitamins/Minerals (Therapeutic-M Tab) 1 tab PO 0800 [facility] Last Admin: 12/09/17 11:16 Dose: 1 tab Oseltamivir Phosphate (Tamiflu Cap) 75 mg PO BID [facility] PRN Reason: Protocol Stop: 12/11/17 12:59 Last Admin: 12/09/17 11:16 Dose: 75 mg Pantoprazole Sodium (Protonix Ec Tab) 40 mg PO ACB [facility] Last Admin: 12/09/17 11:19 Dose: 40 mg Potassium Chloride (K-Dur 20 Meq Er Tab) 40 meq PO BID [facility] Thiamine HCl (Vitamin B1 Tab) 100 mg PO DAILY [facility] Last Admin: 12/09/17 11:16 Dose: 100 mg - Labs Labs: 12/09/17 05:45 12/09/17 05:45 PT 12.5 SECONDS (9.4-12.5) 12/09/17 10:00 INR 1.09 (0.93-1.08) H 12/09/17 10:00 APTT 28.3 Seconds (25.1-36.5) 11/30/17 05:30 - Constitutional Appears: No Acute Distress - Head Exam Head Exam: NORMAL INSPECTION - Neurological Exam Neurological Exam: Alert, Awake Neuro motor strength exam: Left Upper Extremity: 4, Right Upper Extremity: 4, Left Lower Extremity: 3, Right Lower Extremity: 3 Additional comments: He is confused but able to follow some simple commands. Assessment and Plan (1) Altered mental status Assessment & Plan: Case discussed with Dr. Pendleton, continue all current medical treatment. Recommend to treat any electrolyte abnormalities.Maintain seizure precautions and Glycemic control with blood sugars 140-180 Status: Acute
[2017-12-09] MEDS: Potassium Chloride 20 mEq ER Tab PO SCH (17:15)
[2017-12-09] MEDS: Clotrimazole 1% Top Soln(10 ml) TOP SCH (17:16)
[2017-12-09] MEDS: Insulin Detemir 100 units/ml Vial (Levemir) SC SCH (21:18)
[2017-12-10] MEDS: Levalbuterol 0.63 MG/3 ML Inhal Soln UD IH SCH ×5 (05:16→19:59)
[2017-12-10] MEDS: Meropenem 1g/NS 100mL IVPB 1 GM/100 ML PIGGYBACK IVPB SCH ×3 (05:58→22:19)
[2017-12-10 06:25] LABS: BASO # 0.03 K/mm3 (0.0-2.0); BASO % 0.8 % (0.0-3.0); EOS # 0.2 (0.0-0.7); GRAN # 1.73 (1.4-6.5); GRAN % 45.1 % (50.0-68.0); HEMOGLOBIN 11.8 g/dL (14.0-18.0); LYMPH # 1.5 (1.2-3.4); LYMPH % 39.2 % (22.0-35.0); MEAN CELL VOLUME 84.9 fl (80.0-105.0); MEAN CORPUSCULAR HEMOGLOBIN 27.4 pg (25.0-35.0); MEAN CORPUSCULAR HGB CONC 32.3 g/dl (31.0-37.0); MEAN PLATELET VOLUME 9.3 fl (7.0-11.0); MONO # 0.4 (0.1-0.6); MONO % 9.9 % (1.0-6.0); RBC 4.3 10^6/uL (3.5-6.1); RED CELL DISTRIBUTION WIDTH 15.1 % (11.5-14.5); WHITE BLOOD COUNT 3.8 10^3/ul (4.5-11.0)
[2017-12-10 06:40] LABS: ALB/GLOB RATIO 0.9 (1.1-1.8); ALBUMIN 2.7 g/dL (3.0-4.8); ALT/SGPT 65 U/L (7-56); AST/SGOT 70 U/L (17-59); BLOOD UREA NITROGEN 5 mg/dL (7-21); GFR NON-AFRICAN AMERICAN > 60
--- NOTE | 2017-12-10 07:04 | CP.PCM.PN ---
<Miguel Dc - Last Filed: 12/10/17 12:58> Subjective - Date & Time of Evaluation Date of Evaluation: 12/10/17 Time of Evaluation: 06:59 - Subjective Subjective: GI Progress note - Ruperto Dc PGY2 Patient seen and examined at bedside this morning. Overnight, patient O2sat was in the 80's and was again given ativan and placed on nonrebreather. He remains confused and unable to participate in meaningful conversation. 12point ROS limited due to patient status Objective - Vital Signs/Intake and Output Vital Signs (last 24 hours): Temp Pulse Resp BP Pulse Ox 97.4 F L 89 22 133/84 95 12/09/17 16:00 12/09/17 16:00 12/09/17 16:00 12/09/17 16:00 12/09/17 16:00 Intake and Output: 12/09/17 12/10/17 18:59 06:59 Intake Total 900 300 Balance 900 300 - Medications Medications: Current Medications Acetaminophen (Tylenol 325mg Tab) 650 mg PO Q6H PRN PRN Reason: Fever >100.4 F Last Admin: 12/05/17 11:08 Dose: 650 mg Acetylcysteine (Acetylcysteine 20%) 4 ml IH BIDRESP [facility] Last Admin: 12/09/17 20:44 Dose: 4 ml Amlodipine Besylate (Norvasc) 10 mg PO DAILY [facility] Aspirin (Ecotrin) 81 mg PO DAILY [facility] Last Admin: 12/09/17 11:16 Dose: 81 mg Atorvastatin Calcium (Lipitor) 40 mg PO DIN [facility] Last Admin: 12/04/17 16:27 Dose: 40 mg Clotrimazole (Lotrimin Af 1%) 0 ml TOP BID [facility] Last Admin: 12/09/17 17:16 Dose: 1 applic Folic Acid (Folic Acid) 1 mg PO DAILY [facility] Last Admin: 12/09/17 11:16 Dose: 1 mg Heparin Sodium (Porcine) (Heparin) 5,000 units SC Q12 [facility] PRN Reason: Protocol Last Admin: 12/09/17 21:55 Dose: 5,000 units Hydralazine HCl (Apresoline) 10 mg IVP Q6 PRN PRN Reason: For SBP > 150 Last Admin: 12/08/17 23:23 Dose: 10 mg Vancomycin HCl (Vancomycin 1gm) 1 gm in 250 mls @ 167 mls/hr IVPB Q12 [facility] PRN Reason: Protocol Last Admin: 12/09/17 21:19 Dose: 167 mls/hr Meropenem/Sodium Chloride (Meropenem 1g/Ns 100ml Ivpb) 1 gm in 100 mls @ 100 mls/hr IVPB Q8 [facility] PRN Reason: Protocol Stop: 12/14/17 22:01 Last Admin: 12/10/17 05:58 Dose: 100 mls/hr Ibuprofen (Motrin Tab) 400 mg PO Q6H PRN PRN Reason: Fever >100.4 F Last Admin: 12/06/17 13:11 Dose: 400 mg Insulin Detemir (Levemir) 10 unit SC HS [facility] Last Admin: 12/09/17 21:18 Dose: 10 unit Insulin Human Regular (Humulin R High) 0 units SC ACHS [facility] PRN Reason: Protocol Last Admin: 12/09/17 21:56 Dose: Not Given Levalbuterol HCl (Xopenex) 0.63 mg IH [id number] [facility] Last Admin: 12/10/17 05:16 Dose: 0.63 mg Lorazepam (Ativan) 1 mg IVP Q6H PRN; Protocol PRN Reason: Anxiety Last Admin: 12/10/17 03:45 Dose: 1 mg Multivitamins/Minerals (Therapeutic-M Tab) 1 tab PO 0800 [facility] Last Admin: 12/09/17 11:16 Dose: 1 tab Oseltamivir Phosphate (Tamiflu Cap) 75 mg PO BID [facility] PRN Reason: Protocol Stop: 12/11/17 12:59 Last Admin: 12/09/17 17:15 Dose: 75 mg Pantoprazole Sodium (Protonix Ec Tab) 40 mg PO ACB [facility] Last Admin: 12/09/17 11:19 Dose: 40 mg Potassium Chloride (K-Dur 20 Meq Er Tab) 40 meq PO BID [facility] Last Admin: 12/09/17 17:15 Dose: 40 meq Thiamine HCl (Vitamin B1 Tab) 100 mg PO DAILY [facility] Last Admin: 12/09/17 11:16 Dose: 100 mg - Labs Labs: 12/10/17 05:30 12/10/17 05:30 PT 12.5 SECONDS (9.4-12.5) 12/09/17 10:00 INR 1.09 (0.93-1.08) H 12/09/17 10:00 APTT 28.3 Seconds (25.1-36.5) 11/30/17 05:30 - Constitutional Appears: Confused - Head Exam Head Exam: ATRAUMATIC, NORMOCEPHALIC - Eye Exam Eye Exam: EOMI Pupil Exam: PERRL - ENT Exam ENT Exam: Mucous Membranes Moist - Respiratory Exam Respiratory Exam: absent: Rales, Rhonchi, Wheezes - Cardiovascular Exam Cardiovascular Exam: +S1, +S2. absent: Gallop, Rubs - GI/Abdominal Exam GI & Abdominal Exam: Soft. absent: Distended, Firm, Guarding, Rigid, Tenderness , Rebound - Extremities Exam Extremities Exam: absent: Pedal Edema - Neurological Exam Neurological Exam: Alert, Awake - Skin Skin Exam: Dry, Intact, Normal Color, Warm Assessment and Plan - Assessment and Plan (Free Text) Plan: 57yo male with unknown history presents with altered mental status secondary to toxic metabolic encephalopthy/ischemic stroke in setting of influenza/bacteremia /pneumonia 1. Rectosigmoid mass 2. Hepatic mass 3. Sepsis 2/2 multifocal pneumonia/influenza/bacteremia 4. Ischemic stroke 5. Toxic metabolic encephalopathy Plan: -Unable to reach POA/family to obtain consent for Flexible sigmoidoscopy -Hepatitis panel negative -Cdiff negative -AFP 1.0, CEA 32.2 -Rectal exam revealed no palpable masses or gross blood -Follow up neurology recommendations regarding AMS -Continue with antibiotics as per ID recommendations -Concern for endocarditis given findings on echo with potential valvular lesions -CT Chest/Abdomen/Pelvis reviewed; revealed a 7.2x2.0cm rectosigmoid intramural soft tissue density (see full report for further details) -Abdominal US reviewed; revealed nonspecific right hepatic masses measuring up to 4cm; metastases are not excluded; hepatomegaly, cholelithiasis -Unable to proceed with flex sig due to inability obtaining consent. Should family be reached, please reconsult. Thank you for this consult. <Jarad Tejada - Last Filed: 12/10/17 13:07> Objective - Vital Signs/Intake and Output Vital Signs (last 24 hours): Temp Pulse Resp BP Pulse Ox 97.4 F L 89 22 130/90 90 L 12/10/17 06:00 12/10/17 08:28 12/10/17 06:00 12/10/17 10:27 12/10/17 06:00 Intake and Output: 12/10/17 12/10/17 06:59 18:59 Intake Total 300 0 Output Total 2 Balance 300 -2 - Medications Medications: Current Medications Acetaminophen (Tylenol 325mg Tab) 650 mg PO Q6H PRN PRN Reason: Fever >100.4 F Last Admin: 12/05/17 11:08 Dose: 650 mg Acetylcysteine (Acetylcysteine 20%) 4 ml IH BIDRESP [facility] Last Admin: 12/10/17 08:08 Dose: 4 ml Amlodipine Besylate (Norvasc) 10 mg PO DAILY [facility] Last Admin: 12/10/17 10:27 Dose: 10 mg Aspirin (Ecotrin) 81 mg PO DAILY [facility] Last Admin: 12/10/17 10:25 Dose: 81 mg Atorvastatin Calcium (Lipitor) 40 mg PO DIN [facility] Last Admin: 12/04/17 16:27 Dose: 40 mg Clotrimazole (Lotrimin Af 1%) 0 ml TOP BID [facility] Last Admin: 12/10/17 10:27 Dose: 1 applic Folic Acid (Folic Acid) 1 mg PO DAILY [facility] Last Admin: 12/10/17 10:25 Dose: 1 mg Heparin Sodium (Porcine) (Heparin) 5,000 units SC Q12 [facility] PRN Reason: Protocol Last Admin: 12/10/17 10:25 Dose: 5,000 units Hydralazine HCl (Apresoline) 10 mg IVP Q6 PRN PRN Reason: For SBP > 150 Last Admin: 12/08/17 23:23 Dose: 10 mg Vancomycin HCl (Vancomycin 1gm) 1 gm in 250 mls @ 167 mls/hr IVPB Q12 [facility] PRN Reason: Protocol Last Admin: 12/10/17 10:29 Dose: 167 mls/hr Meropenem/Sodium Chloride (Meropenem 1g/Ns 100ml Ivpb) 1 gm in 100 mls @ 100 mls/hr IVPB Q8 [facility] PRN Reason: Protocol Stop: 12/14/17 22:01 Last Admin: 12/10/17 05:58 Dose: 100 mls/hr Ibuprofen (Motrin Tab) 400 mg PO Q6H PRN PRN Reason: Fever >100.4 F Last Admin: 12/06/17 13:11 Dose: 400 mg Insulin Detemir (Levemir) 10 unit SC HS [facility] Last Admin: 12/09/17 21:18 Dose: 10 unit Insulin Human Regular (Humulin R High) 0 units SC ACHS [facility] PRN Reason: Protocol Last Admin: 12/10/17 12:02 Dose: Not Given Levalbuterol HCl (Xopenex) 0.63 mg IH [id number] [facility] Last Admin: 12/10/17 11:18 Dose: 0.63 mg Lorazepam (Ativan) 1 mg IVP Q6H PRN; Protocol PRN Reason: Anxiety Last Admin: 12/10/17 03:45 Dose: 1 mg Multivitamins/Minerals (Therapeutic-M Tab) 1 tab PO 0800 [facility] Last Admin: 12/10/17 10:29 Dose: 1 tab Oseltamivir Phosphate (Tamiflu Cap) 75 mg PO BID [facility] PRN Reason: Protocol Stop: 12/11/17 12:59 Last Admin: 12/10/17 10:28 Dose: 75 mg Pantoprazole Sodium (Protonix Ec Tab) 40 mg PO ACB [facility] Last Admin: 12/10/17 10:28 Dose: 40 mg Potassium Chloride (K-Dur 20 Meq Er Tab) 40 meq PO BID [facility] Last Admin: 12/10/17 10:27 Dose: 40 meq Thiamine HCl (Vitamin B1 Tab) 100 mg PO DAILY [facility] Last Admin: 12/10/17 10:30 Dose: 100 mg - Labs Labs: 12/10/17 05:30 12/10/17 05:30 PT 12.5 SECONDS (9.4-12.5) 12/09/17 10:00 INR 1.09 (0.93-1.08) H 12/09/17 10:00 APTT 28.3 Seconds (25.1-36.5) 11/30/17 05:30 Attending/Attestation - Attestation I have personally seen and examined this patient.: Yes I have fully participated in the care of the patient.: Yes I have reviewed all pertinent clinical information, including history, physical exam and plan: Yes Notes (Text): 12/10/17 13:02 I have seen and examined patient with GI fellow. No acute events overnight. Patient is seen resting in bed, appears comfortable. He remains confused and not able to participate in meaningful conversation. No reported abdominal pain , nausea, vomiting. Able to tolerate PO diet with assistance from nursing staff. AMS CVA HCAP Bacteremia - ?valvular vegitation Rectosigmoid mass lesion, ?hepatic metastatic lesions - Diet as tolerated, maintain strict aspriation precautions - Continue with antibiotic therapy as per ID - Follow up neurology recommendations - Multiple (greater than 5) attempts to reach patient family member/POA have been made (including telephone messages left) in order to obtain consent for flexible sigmoidoscopy to obtain tissue diagnosis of visualized rectosigmoid lesion on CT imaging. Unfortunately, no response and therefore unable to proceed with procedure. No further planned GI intervention at this time, will sign off case. If POA is established and they agree with procedure, please reconsult, thank you.
[2017-12-10] MEDS: Acetylcysteine 20% Inhal Soln (4ml) IH SCH ×2 (08:08→19:59)
[2017-12-10] MEDS: Insulin Reg-HIGH-Coverage SC SCH ×4 (10:26→22:22)
[2017-12-10] MEDS: Potassium Chloride 20 mEq ER Tab PO SCH ×2 (10:27→17:41)
[2017-12-10] MEDS: Clotrimazole 1% Top Soln(10 ml) TOP SCH ×2 (10:27→17:42)
[2017-12-10] MEDS: Pantoprazole 40 mg EC Tab PO SCH (10:28)
[2017-12-10] MEDS: Multivitamin With Minerals Tab PO SCH (10:29)
[2017-12-10] MEDS: Vancomycin 1gm in NS 250ml 1 GM/250 ML BAG IVPB SCH ×2 (10:29→22:19)
--- NOTE | 2017-12-10 10:59 | CP.PCM.PN ---
Subjective - Date & Time of Evaluation Date of Evaluation: 12/10/17 Time of Evaluation: 09:25 - Subjective Subjective: Feels weak but not in distress, no fevers, no diarrhea. Objective - Vital Signs/Intake and Output Vital Signs (last 24 hours): Temp Pulse Resp BP Pulse Ox 97.4 F L 89 22 133/84 95 12/09/17 16:00 12/10/17 08:28 12/09/17 16:00 12/09/17 16:00 12/09/17 16:00 Intake and Output: 12/10/17 12/10/17 06:59 18:59 Intake Total 300 0 Output Total 2 Balance 300 -2 - Medications Medications: Current Medications Acetaminophen (Tylenol 325mg Tab) 650 mg PO Q6H PRN PRN Reason: Fever >100.4 F Last Admin: 12/05/17 11:08 Dose: 650 mg Acetylcysteine (Acetylcysteine 20%) 4 ml IH BIDRESP [facility] Last Admin: 12/10/17 08:08 Dose: 4 ml Amlodipine Besylate (Norvasc) 10 mg PO DAILY [facility] Aspirin (Ecotrin) 81 mg PO DAILY [facility] Last Admin: 12/09/17 11:16 Dose: 81 mg Atorvastatin Calcium (Lipitor) 40 mg PO DIN [facility] Last Admin: 12/04/17 16:27 Dose: 40 mg Clotrimazole (Lotrimin Af 1%) 0 ml TOP BID [facility] Last Admin: 12/09/17 17:16 Dose: 1 applic Folic Acid (Folic Acid) 1 mg PO DAILY [facility] Last Admin: 12/09/17 11:16 Dose: 1 mg Heparin Sodium (Porcine) (Heparin) 5,000 units SC Q12 [facility] PRN Reason: Protocol Last Admin: 12/09/17 21:55 Dose: 5,000 units Hydralazine HCl (Apresoline) 10 mg IVP Q6 PRN PRN Reason: For SBP > 150 Last Admin: 12/08/17 23:23 Dose: 10 mg Vancomycin HCl (Vancomycin 1gm) 1 gm in 250 mls @ 167 mls/hr IVPB Q12 [facility] PRN Reason: Protocol Last Admin: 12/09/17 21:19 Dose: 167 mls/hr Meropenem/Sodium Chloride (Meropenem 1g/Ns 100ml Ivpb) 1 gm in 100 mls @ 100 mls/hr IVPB Q8 [facility] PRN Reason: Protocol Stop: 12/14/17 22:01 Last Admin: 12/10/17 05:58 Dose: 100 mls/hr Ibuprofen (Motrin Tab) 400 mg PO Q6H PRN PRN Reason: Fever >100.4 F Last Admin: 12/06/17 13:11 Dose: 400 mg Insulin Detemir (Levemir) 10 unit SC HS [facility] Last Admin: 12/09/17 21:18 Dose: 10 unit Insulin Human Regular (Humulin R High) 0 units SC ACHS [facility] PRN Reason: Protocol Last Admin: 12/09/17 21:56 Dose: Not Given Levalbuterol HCl (Xopenex) 0.63 mg IH [id number] [facility] Last Admin: 12/10/17 08:08 Dose: 0.63 mg Lorazepam (Ativan) 1 mg IVP Q6H PRN; Protocol PRN Reason: Anxiety Last Admin: 12/10/17 03:45 Dose: 1 mg Multivitamins/Minerals (Therapeutic-M Tab) 1 tab PO 0800 [facility] Last Admin: 12/09/17 11:16 Dose: 1 tab Oseltamivir Phosphate (Tamiflu Cap) 75 mg PO BID [facility] PRN Reason: Protocol Stop: 12/11/17 12:59 Last Admin: 12/09/17 17:15 Dose: 75 mg Pantoprazole Sodium (Protonix Ec Tab) 40 mg PO ACB [facility] Last Admin: 12/09/17 11:19 Dose: 40 mg Potassium Chloride (K-Dur 20 Meq Er Tab) 40 meq PO BID [facility] Last Admin: 12/09/17 17:15 Dose: 40 meq Thiamine HCl (Vitamin B1 Tab) 100 mg PO DAILY [facility] Last Admin: 12/09/17 11:16 Dose: 100 mg - Labs Labs: 12/10/17 05:30 12/10/17 05:30 PT 12.5 SECONDS (9.4-12.5) 12/09/17 10:00 INR 1.09 (0.93-1.08) H 12/09/17 10:00 APTT 28.3 Seconds (25.1-36.5) 11/30/17 05:30 - Constitutional Appears: Chronically Ill - Head Exam Head Exam: NORMAL INSPECTION - ENT Exam ENT Exam: Mucous Membranes Moist - Neck Exam Neck Exam: absent: Meningismus - Respiratory Exam Respiratory Exam: Decreased Breath Sounds - Cardiovascular Exam Cardiovascular Exam: +S1, +S2 - GI/Abdominal Exam GI & Abdominal Exam: Soft. absent: Tenderness Assessment and Plan - Assessment and Plan (Free Text) Plan: Assessment sepsis due to multifocal HCAP on top of Influenza A infection in this patient with strep viridans and CoNS bacteremia from right gluteal and back cellulitis, R/O Sammie infection of sacral area as well Plan continue Vancomycin and Merrem and Tamiflu day 5 continue topical antifungal over sacral area as well awaiting TAHIR when feasible will continue to monitor clinically
[2017-12-10] MEDS ORDERED: Potassium Chloride 20 mEq ER Tab PO STA (12:48)
--- NOTE | 2017-12-10 15:01 | CP.PCM.PN ---
<Ryan White - Last Filed: 12/10/17 14:58> Subjective - Date & Time of Evaluation Date of Evaluation: 12/10/17 Time of Evaluation: 14:58 - Subjective Subjective: Medicine Progress Note: Patient seen and assessed at bedside. No acute events overnight noted by patient or nursing staff. Patient was tentatively scheduled for flexible sigmoidoscopy today but consent could not be obtained despite multiple attempts to reach POA. Currently, patient's mental status and ability to verbally communicate are stable. Patient oriented to person and place but not to time or event. Patient denies headache, chest pain, SOB, abdominal pain, N/V/D/C, pain with urination or numbness/tingling of any extremity. Objective - Vital Signs/Intake and Output Vital Signs (last 24 hours): Temp Pulse Resp BP Pulse Ox 97.4 F L 89 22 130/90 90 L 12/10/17 06:00 12/10/17 08:28 12/10/17 06:00 12/10/17 10:27 12/10/17 06:00 Intake and Output: 12/10/17 12/10/17 06:59 18:59 Intake Total 300 0 Output Total 2 Balance 300 -2 - Medications Medications: Current Medications Acetaminophen (Tylenol 325mg Tab) 650 mg PO Q6H PRN PRN Reason: Fever >100.4 F Last Admin: 12/05/17 11:08 Dose: 650 mg Acetylcysteine (Acetylcysteine 20%) 4 ml IH BIDRESP [facility] Last Admin: 12/10/17 08:08 Dose: 4 ml Amlodipine Besylate (Norvasc) 10 mg PO DAILY [facility] Last Admin: 12/10/17 10:27 Dose: 10 mg Aspirin (Ecotrin) 81 mg PO DAILY [facility] Last Admin: 12/10/17 10:25 Dose: 81 mg Atorvastatin Calcium (Lipitor) 40 mg PO DIN [facility] Last Admin: 12/04/17 16:27 Dose: 40 mg Clotrimazole (Lotrimin Af 1%) 0 ml TOP BID [facility] Last Admin: 12/10/17 10:27 Dose: 1 applic Folic Acid (Folic Acid) 1 mg PO DAILY [facility] Last Admin: 12/10/17 10:25 Dose: 1 mg Heparin Sodium (Porcine) (Heparin) 5,000 units SC Q12 [facility] PRN Reason: Protocol Last Admin: 12/10/17 10:25 Dose: 5,000 units Hydralazine HCl (Apresoline) 10 mg IVP Q6 PRN PRN Reason: For SBP > 150 Last Admin: 12/08/17 23:23 Dose: 10 mg Vancomycin HCl (Vancomycin 1gm) 1 gm in 250 mls @ 167 mls/hr IVPB Q12 [facility] PRN Reason: Protocol Last Admin: 12/10/17 10:29 Dose: 167 mls/hr Meropenem/Sodium Chloride (Meropenem 1g/Ns 100ml Ivpb) 1 gm in 100 mls @ 100 mls/hr IVPB Q8 [facility] PRN Reason: Protocol Stop: 12/14/17 22:01 Last Admin: 12/10/17 14:31 Dose: 100 mls/hr Ibuprofen (Motrin Tab) 400 mg PO Q6H PRN PRN Reason: Fever >100.4 F Last Admin: 12/06/17 13:11 Dose: 400 mg Insulin Detemir (Levemir) 10 unit SC HS [facility] Last Admin: 12/09/17 21:18 Dose: 10 unit Insulin Human Regular (Humulin R High) 0 units SC ACHS [facility] PRN Reason: Protocol Last Admin: 12/10/17 12:02 Dose: Not Given Levalbuterol HCl (Xopenex) 0.63 mg IH [id number] [facility] Last Admin: 12/10/17 11:18 Dose: 0.63 mg Lorazepam (Ativan) 1 mg IVP Q6H PRN; Protocol PRN Reason: Anxiety Last Admin: 12/10/17 03:45 Dose: 1 mg Multivitamins/Minerals (Therapeutic-M Tab) 1 tab PO 0800 [facility] Last Admin: 12/10/17 10:29 Dose: 1 tab Oseltamivir Phosphate (Tamiflu Cap) 75 mg PO BID [facility] PRN Reason: Protocol Stop: 12/11/17 12:59 Last Admin: 12/10/17 10:28 Dose: 75 mg Pantoprazole Sodium (Protonix Ec Tab) 40 mg PO ACB [facility] Last Admin: 12/10/17 10:28 Dose: 40 mg Potassium Chloride (K-Dur 20 Meq Er Tab) 40 meq PO BID [facility] Last Admin: 12/10/17 10:27 Dose: 40 meq Thiamine HCl (Vitamin B1 Tab) 100 mg PO DAILY [facility] Last Admin: 12/10/17 10:30 Dose: 100 mg - Labs Labs: 12/10/17 05:30 12/10/17 05:30 PT 12.5 SECONDS (9.4-12.5) 12/09/17 10:00 INR 1.09 (0.93-1.08) H 12/09/17 10:00 APTT 28.3 Seconds (25.1-36.5) 11/30/17 05:30 - Constitutional Appears: Chronically Ill - Head Exam Head Exam: ATRAUMATIC, NORMOCEPHALIC - Eye Exam Eye Exam: EOMI, PERRL Pupil Exam: NORMAL ACCOMODATION - ENT Exam ENT Exam: Mucous Membranes Moist - Neck Exam Neck Exam: Full ROM, Normal Inspection. absent: Lymphadenopathy - Respiratory Exam Respiratory Exam: Decreased Breath Sounds, Rhonchi, Wheezes (Trace end expiratory in upper lung hartley), NORMAL BREATHING PATTERN. absent: Accessory Muscle Use, Chest Wall Tenderness, Clear to Ausculation Bilateral, Prolonged Expiratory Phase, Rales, Respiratory Distress, Stridor - Cardiovascular Exam Cardiovascular Exam: REGULAR RHYTHM, RRR, +S1, +S2. absent: Tachycardia - GI/Abdominal Exam GI & Abdominal Exam: Soft, Normal Bowel Sounds. absent: Distended, Firm, Guarding, Rigid, Tenderness, Rebound - Extremities Exam Extremities Exam: Normal Capillary Refill. absent: Calf Tenderness, Joint Swelling, Pedal Edema, Tenderness - Neurological Exam Neurological Exam: Alert, Awake. absent: Oriented x3 - Skin Skin Exam: Dry, Warm Additional comments: Erythematous rash extending from right lateral thigh to anal cleft; two stage 2 sacral decubitus ulcers of right lateral thigh and right gluteal region Assessment and Plan - Assessment and Plan (Free Text) Assessment: 57 year old male with an unknown past medical history who was brought in by ambulance after being found with an AMS and covered in feces in his apartment. His mental status has progressively improved since admission. He is currently on IV Vancomycin and Zozyn for coagulase negative staph and strep viridans bacteremia. Repeat blood cultures negative. An MRI Brain showed acute vs. subacute lacunar infarct in the left parietal region. Neurology is following and patient is on stroke prevention medication. Patient continues to have fevers while on antibiotic therapy and noted to have an echo with bubble study that couldn't rule out septic vegetations of the aortic valve. ID is following and recommends continuing antibiotics. Cardiology was consulted for TAHIR evaluation to rule out endocarditis and septic vegetations. Patient was found to have new colonic mass and multifocal pneumonia on CT chest/abdomen/pelvis and concerns for metastatic disease of the liver on abdominal ultrasound. GI was consulted. Flexible sigmoidoscopy/Colonoscopy and TAHIR to be done when consent can be obtained. Plan: 1. Toxic-Metabolic Encephalopathy secondary to Strep Viridans/Coag Neg Staph Bacteremia -Repeat blood cultures negative for five days -Continue IV Vancomycin (Day 11) and Merrem (Day 5) -Continue Motrin 400mg Q6 PRN for fever -TAHIR to be done when consent can be obtained -Cardiology, Neurology and ID consulted, all recommendations appreciated -PT/OT recommending continued PT and JOSIAH upon discharge 2. New Colonic Neoplasm -Flexible sigmoidoscopy/Colonoscopy to be done when consent can be obtained -GI consulted, all recommendations appreciated 3. Multifocal Pneumonia -Continue IV Vancomycin (Day 11) and Merrem (Day 5) -Continue Xopenex [id number] and continued Mucormyst BID 4. Influenza A -Continue Tamiflu (Day 4) -Continue droplet precautions 5. Ischemic Stroke -Continue ASA 81mg -Lipitor 40mg currently held in setting of elevated LFT's 6. Transaminitis -Stable -Hepatitis panel negative -PRN Tylenol and Lipitor 40mg held -Continue to monitor with daily CMP's 7. History of Alcohol Abuse/Withdrawal -Continue Ativan 1mg IVP Q6H PRN -PO Folate, Thiamine, and MV supplementation -Fall, Seizure and Aspiration precautions 8. Hyperglycemia -SSI-High and Accuchecks ACHS -Levemir 10u HS -Carb Consistent Diet 9. HTN -Continue Norvasc 10mg PO daily and hydralazine 10mg IVP Q6 PRN 10. Stage 2 Sacral Decubitus Ulcers -Continue wound care and Q2 repositioning GI Prophylaxis: Protonix DVT Prophylaxis: Heparin and SCD's Patient seen and case discussed with attending, Dr. Schumacher. <Deanna Schumacher - Last Filed: 12/11/17 09:43> Objective - Vital Signs/Intake and Output Vital Signs (last 24 hours): Temp Pulse Resp BP Pulse Ox 97.4 F L 88 20 158/99 H 90 L 12/11/17 07:48 12/11/17 07:48 12/11/17 07:48 12/11/17 07:48 12/10/17 16:00 Intake and Output: 12/11/17 12/11/17 06:59 18:59 Intake Total 660 Balance 660 - Medications Medications: Current Medications Acetaminophen (Tylenol 325mg Tab) 650 mg PO Q6H PRN PRN Reason: Fever >100.4 F Last Admin: 12/05/17 11:08 Dose: 650 mg Acetylcysteine (Acetylcysteine 20%) 4 ml IH BIDRESP [facility] Last Admin: 12/11/17 07:31 Dose: 4 ml Amlodipine Besylate (Norvasc) 10 mg PO DAILY [facility] Last Admin: 12/10/17 10:27 Dose: 10 mg Aspirin (Ecotrin) 81 mg PO DAILY [facility] Last Admin: 12/10/17 10:25 Dose: 81 mg Atorvastatin Calcium (Lipitor) 40 mg PO DIN [facility] Last Admin: 12/04/17 16:27 Dose: 40 mg Clotrimazole (Lotrimin Af 1%) 0 ml TOP BID [facility] Last Admin: 12/10/17 17:42 Dose: 1 applic Folic Acid (Folic Acid) 1 mg PO DAILY [facility] Last Admin: 12/10/17 10:25 Dose: 1 mg Heparin Sodium (Porcine) (Heparin) 5,000 units SC Q12 [facility] PRN Reason: Protocol Last Admin: 12/10/17 22:19 Dose: 5,000 units Hydralazine HCl (Apresoline) 10 mg IVP Q6 PRN PRN Reason: For SBP > 150 Last Admin: 12/08/17 23:23 Dose: 10 mg Meropenem/Sodium Chloride (Meropenem 1g/Ns 100ml Ivpb) 1 gm in 100 mls @ 100 mls/hr IVPB Q8 [facility] PRN Reason: Protocol Stop: 12/14/17 22:01 Last Admin: 12/11/17 05:54 Dose: 100 mls/hr Ibuprofen (Motrin Tab) 400 mg PO Q6H PRN PRN Reason: Fever >100.4 F Last Admin: 12/10/17 23:04 Dose: 400 mg Insulin Detemir (Levemir) 10 unit SC HS [facility] Last Admin: 12/10/17 22:20 Dose: 10 unit Insulin Human Regular (Humulin R High) 0 units SC ACHS [facility] PRN Reason: Protocol Last Admin: 12/11/17 07:39 Dose: Not Given Levalbuterol HCl (Xopenex) 0.63 mg IH [id number] [facility] Last Admin: 12/11/17 07:32 Dose: 0.63 mg Lorazepam (Ativan) 1 mg IVP Q6H PRN; Protocol PRN Reason: Anxiety Last Admin: 12/10/17 03:45 Dose: 1 mg Multivitamins/Minerals (Therapeutic-M Tab) 1 tab PO 0800 [facility] Last Admin: 12/10/17 10:29 Dose: 1 tab Oseltamivir Phosphate (Tamiflu Cap) 75 mg PO BID [facility] PRN Reason: Protocol Stop: 12/11/17 12:59 Last Admin: 12/10/17 17:42 Dose: 75 mg Pantoprazole Sodium (Protonix Ec Tab) 40 mg PO ACB [facility] Last Admin: 12/10/17 10:28 Dose: 40 mg Potassium Chloride (K-Dur 20 Meq Er Tab) 40 meq PO BID [facility] Last Admin: 12/10/17 17:41 Dose: 40 meq Thiamine HCl (Vitamin B1 Tab) 100 mg PO DAILY [facility] Last Admin: 12/10/17 10:30 Dose: 100 mg - Labs Labs: 12/11/17 07:00 12/11/17 07:00 PT 12.5 SECONDS (9.4-12.5) 12/09/17 10:00 INR 1.09 (0.93-1.08) H 12/09/17 10:00 APTT 28.3 Seconds (25.1-36.5) 11/30/17 05:30 Attending/Attestation - Attestation I have personally seen and examined this patient.: Yes I have fully participated in the care of the patient.: Yes I have reviewed all pertinent clinical information, including history, physical exam and plan: Yes Notes (Text): 12/11/17 09:43 Patient was seen and examined with medical lab assistant.Agreed with assessment and plan. Patient is afebrile, on room air, stable at base line.He is awake but not oriented, no overnight issue In Summary Mr Montano is 57 year old male with an unknown past medical history who was brought in by ambulance after being found with an AMS and covered in feces in his apartment. His mental status has progressively improved since admission.Blood cultures grew Streptococus viridan.Echo with bubble study couldn 't rule out septic vegetations of the aortic valve. Family is not available to give consent for TAHIR. Patient is also found to have new colonic mass and multifocal pneumonia on CT chest/abdomen/pelvis and concerns for metastatic disease ?of the liver on abdominal ultrasound.MRI Brain showed acute vs. subacute lacunar infarct in the left parietal region.Repeat blood cultures are negative to date He is currently on IV Vancomycin and Meropenem as per ID.Patient was also found to have influenza positive and is on Tamiflu. GI is planning for sigmoidoscopy for Rectosigmod lesion on CT abdomen and Pelvis.Family is not available to give the consent for the procedure. Hypokalemia is improving. Prognosis is guarded.
[2017-12-10] MEDS: Insulin Detemir 100 units/ml Vial (Levemir) SC SCH (22:20)
[2017-12-11] MEDS: Levalbuterol 0.63 MG/3 ML Inhal Soln UD IH SCH ×6 (00:40→19:38)
[2017-12-11] MEDS: Meropenem 1g/NS 100mL IVPB 1 GM/100 ML PIGGYBACK IVPB SCH ×3 (05:54→23:22)
[2017-12-11] MEDS: Acetylcysteine 20% Inhal Soln (4ml) IH SCH ×2 (07:31→19:38)
[2017-12-11] MEDS: Insulin Reg-HIGH-Coverage SC SCH ×4 (07:39→23:10)
[2017-12-11 07:40] LABS: BASO # 0.03 K/mm3 (0.0-2.0); BASO % 0.7 % (0.0-3.0); EOS # 0.2 (0.0-0.7); EOS % 4.5 % (1.5-5.0); GRAN # 1.62 (1.4-6.5); GRAN % 38.5 % (50.0-68.0); HEMOGLOBIN 11.4 g/dL (14.0-18.0); LYMPH # 1.9 (1.2-3.4); LYMPH % 44.4 % (22.0-35.0); MEAN CELL VOLUME 85.2 fl (80.0-105.0); MEAN CORPUSCULAR HEMOGLOBIN 27.2 pg (25.0-35.0); MEAN CORPUSCULAR HGB CONC 31.9 g/dl (31.0-37.0); MEAN PLATELET VOLUME 9.4 fl (7.0-11.0); MONO # 0.5 (0.1-0.6); MONO % 11.9 % (1.0-6.0); RBC 4.19 10^6/uL (3.5-6.1); RED CELL DISTRIBUTION WIDTH 15.4 % (11.5-14.5); WHITE BLOOD COUNT 4.2 10^3/ul (4.5-11.0)
[2017-12-11] MEDS: Multivitamin With Minerals Tab PO SCH (08:17)
[2017-12-11] MEDS: Pantoprazole 40 mg EC Tab PO SCH (08:18)
[2017-12-11 08:19] LABS: ALB/GLOB RATIO 0.8 (1.1-1.8); ALBUMIN 2.6 g/dL (3.0-4.8); ALT/SGPT 56 U/L (7-56); AST/SGOT 54 U/L (17-59); BLOOD UREA NITROGEN 7 mg/dL (7-21); CALCIUM 8.8 mg/dL (8.4-10.5); GFR NON-AFRICAN AMERICAN > 60
--- NOTE | 2017-12-11 09:44 | CP.PCM.PN ---
<Misty Smith - Last Filed: 12/11/17 09:38> Subjective - Date & Time of Evaluation Date of Evaluation: 12/11/17 Time of Evaluation: 09:38 - Subjective Subjective: Misty Smith, PGY1, Medicine Progress Note for Dr Schumacher: Patient seen and examined at bedside. No acute events overnight. Pt's mental status at baseline, oriented to person, place, not time. Denies fever, chills, cough, abdominal pain, leg swelling. Unable to communicate with any family member that can give consent for procedure. Objective - Vital Signs/Intake and Output Vital Signs (last 24 hours): Temp Pulse Resp BP Pulse Ox 97.4 F L 88 20 158/99 H 90 L 12/11/17 07:48 12/11/17 07:48 12/11/17 07:48 12/11/17 07:48 12/10/17 16:00 Intake and Output: 12/11/17 12/11/17 06:59 18:59 Intake Total 660 Balance 660 - Medications Medications: Current Medications Acetaminophen (Tylenol 325mg Tab) 650 mg PO Q6H PRN PRN Reason: Fever >100.4 F Last Admin: 12/05/17 11:08 Dose: 650 mg Acetylcysteine (Acetylcysteine 20%) 4 ml IH BIDRESP [facility] Last Admin: 12/11/17 07:31 Dose: 4 ml Amlodipine Besylate (Norvasc) 10 mg PO DAILY [facility] Last Admin: 12/10/17 10:27 Dose: 10 mg Aspirin (Ecotrin) 81 mg PO DAILY [facility] Last Admin: 12/10/17 10:25 Dose: 81 mg Atorvastatin Calcium (Lipitor) 40 mg PO DIN [facility] Last Admin: 12/04/17 16:27 Dose: 40 mg Clotrimazole (Lotrimin Af 1%) 0 ml TOP BID [facility] Last Admin: 12/10/17 17:42 Dose: 1 applic Folic Acid (Folic Acid) 1 mg PO DAILY [facility] Last Admin: 12/10/17 10:25 Dose: 1 mg Heparin Sodium (Porcine) (Heparin) 5,000 units SC Q12 [facility] PRN Reason: Protocol Last Admin: 12/10/17 22:19 Dose: 5,000 units Hydralazine HCl (Apresoline) 10 mg IVP Q6 PRN PRN Reason: For SBP > 150 Last Admin: 12/08/17 23:23 Dose: 10 mg Meropenem/Sodium Chloride (Meropenem 1g/Ns 100ml Ivpb) 1 gm in 100 mls @ 100 mls/hr IVPB Q8 [facility] PRN Reason: Protocol Stop: 12/14/17 22:01 Last Admin: 12/11/17 05:54 Dose: 100 mls/hr Ibuprofen (Motrin Tab) 400 mg PO Q6H PRN PRN Reason: Fever >100.4 F Last Admin: 12/10/17 23:04 Dose: 400 mg Insulin Detemir (Levemir) 10 unit SC HS [facility] Last Admin: 12/10/17 22:20 Dose: 10 unit Insulin Human Regular (Humulin R High) 0 units SC ACHS [facility] PRN Reason: Protocol Last Admin: 12/11/17 07:39 Dose: Not Given Levalbuterol HCl (Xopenex) 0.63 mg IH [id number] [facility] Last Admin: 12/11/17 07:32 Dose: 0.63 mg Lorazepam (Ativan) 1 mg IVP Q6H PRN; Protocol PRN Reason: Anxiety Last Admin: 12/10/17 03:45 Dose: 1 mg Multivitamins/Minerals (Therapeutic-M Tab) 1 tab PO 0800 [facility] Last Admin: 12/10/17 10:29 Dose: 1 tab Oseltamivir Phosphate (Tamiflu Cap) 75 mg PO BID [facility] PRN Reason: Protocol Stop: 12/11/17 12:59 Last Admin: 12/10/17 17:42 Dose: 75 mg Pantoprazole Sodium (Protonix Ec Tab) 40 mg PO ACB [facility] Last Admin: 12/10/17 10:28 Dose: 40 mg Potassium Chloride (K-Dur 20 Meq Er Tab) 40 meq PO BID [facility] Last Admin: 12/10/17 17:41 Dose: 40 meq Thiamine HCl (Vitamin B1 Tab) 100 mg PO DAILY [facility] Last Admin: 12/10/17 10:30 Dose: 100 mg - Labs Labs: 12/11/17 07:00 12/11/17 07:00 PT 12.5 SECONDS (9.4-12.5) 12/09/17 10:00 INR 1.09 (0.93-1.08) H 12/09/17 10:00 APTT 28.3 Seconds (25.1-36.5) 11/30/17 05:30 - Constitutional Appears: Non-toxic, No Acute Distress - Head Exam Head Exam: ATRAUMATIC, NORMOCEPHALIC - Eye Exam Eye Exam: EOMI, PERRL. absent: Conjunctival injection, Nystagmus, Scleral icterus - ENT Exam ENT Exam: Mucous Membranes Moist - Neck Exam Neck Exam: Full ROM - Respiratory Exam Respiratory Exam: Clear to Ausculation Bilateral, NORMAL BREATHING PATTERN. absent: Accessory Muscle Use, Rales, Rhonchi, Wheezes - Cardiovascular Exam Cardiovascular Exam: RRR, +S1, +S2. absent: Murmur - GI/Abdominal Exam GI & Abdominal Exam: Soft, Normal Bowel Sounds. absent: Distended, Tenderness, Mass, Organomegaly - Extremities Exam Extremities Exam: Normal Inspection. absent: Calf Tenderness, Pedal Edema - Neurological Exam Neurological Exam: Alert, Awake (orietend x2, at baseline) - Psychiatric Exam Psychiatric exam: Normal Affect, Normal Mood - Skin Skin Exam: Dry, Warm Additional comments: Erythematous rash extending from right lateral thigh to anal cleft; two stage 2 sacral decubitus ulcers of right lateral thigh and right gluteal region Assessment and Plan - Assessment and Plan (Free Text) Assessment: 57 year old male with an unknown past medical history who was brought in by ambulance after being found with an AMS and covered in feces in his apartment. His mental status has progressively improved since admission. He is currently on IV Vancomycin and Zosyn for coagulase negative staph and strep viridans bacteremia. Repeat blood cultures negative. An MRI Brain showed acute vs. subacute lacunar infarct in the left parietal region. Neurology is following and patient is on stroke prevention medication. Patient continues to have fevers while on antibiotic therapy and noted to have an echo with bubble study that couldn't rule out septic vegetations of the aortic valve. ID is following and recommends continuing antibiotics. Cardiology was consulted for TAHIR evaluation to rule out endocarditis and septic vegetations. Patient was found to have new colonic mass and multifocal pneumonia on CT chest/abdomen/pelvis and concerns for metastatic disease of the liver on abdominal ultrasound. GI was consulted. Flexible sigmoidoscopy/Colonoscopy and TAHIR to be done when consent can be obtained. Pt afebrile for 5 days, will likely discontinue Merrem after discussion with ID. Continue with IV Vancomycin: 1. Toxic-Metabolic Encephalopathy secondary to Strep Viridans/Coag Neg Staph Bacteremia -Repeat blood cultures negative for five days -Continue IV Vancomycin (Day 12) and Merrem (Day 6) -Continue Motrin 400mg Q6 PRN for fever -TAHIR to be done when consent can be obtained -Cardiology, Neurology and ID consulted, all recommendations appreciated -PT/OT recommending continued PT and JOSIAH upon discharge 2. New Colonic Neoplasm -Flexible sigmoidoscopy/Colonoscopy to be done when consent can be obtained -GI consulted, all recommendations appreciated 3. Multifocal Pneumonia -Continue IV Vancomycin (Day 12) and Merrem (Day 6) -Continue Xopenex [id number] and continued Mucormyst BID 4. Influenza A -Continue Tamiflu (Day 4) -Continue droplet precautions 5. Ischemic Stroke -Continue ASA 81mg -Lipitor 40mg currently held in setting of elevated LFT's 6. Transaminitis -Stable -Hepatitis panel negative -PRN Tylenol and Lipitor 40mg held -Continue to monitor with daily CMP's 7. History of Alcohol Abuse/Withdrawal -Continue Ativan 1mg IVP Q6H PRN -PO Folate, Thiamine, and MV supplementation -Fall, Seizure and Aspiration precautions 8. Hyperglycemia -SSI-High and Accuchecks ACHS -Levemir 10u HS -Carb Consistent Diet 9. HTN -Continue Norvasc 10mg PO daily and hydralazine 10mg IVP Q6 PRN 10. Stage 2 Sacral Decubitus Ulcers -Continue wound care and Q2 repositioning GI Prophylaxis: Protonix DVT Prophylaxis: Heparin and SCD's Patient seen and case discussed with attending, Dr. Schumacher. <Deanna Schumacher - Last Filed: 12/11/17 13:27> Objective - Vital Signs/Intake and Output Vital Signs (last 24 hours): Temp Pulse Resp BP Pulse Ox 97.4 F L 88 20 158/99 H 90 L 12/11/17 07:48 12/11/17 07:48 12/11/17 07:48 12/11/17 10:11 12/10/17 16:00 Intake and Output: 12/11/17 12/11/17 06:59 18:59 Intake Total 660 Balance 660 - Medications Medications: Current Medications Acetaminophen (Tylenol 325mg Tab) 650 mg PO Q6H PRN PRN Reason: Fever >100.4 F Last Admin: 12/05/17 11:08 Dose: 650 mg Acetylcysteine (Acetylcysteine 20%) 4 ml IH BIDRESP [facility] Last Admin: 12/11/17 07:31 Dose: 4 ml Amlodipine Besylate (Norvasc) 10 mg PO DAILY [facility] Last Admin: 12/11/17 10:11 Dose: 10 mg Aspirin (Ecotrin) 81 mg PO DAILY [facility] Last Admin: 12/11/17 10:06 Dose: 81 mg Atorvastatin Calcium (Lipitor) 40 mg PO DIN [facility] Last Admin: 12/04/17 16:27 Dose: 40 mg Clotrimazole (Lotrimin Af 1%) 0 ml TOP BID [facility] Last Admin: 12/11/17 10:11 Dose: 1 applic Folic Acid (Folic Acid) 1 mg PO DAILY [facility] Last Admin: 12/11/17 10:07 Dose: 1 mg Heparin Sodium (Porcine) (Heparin) 5,000 units SC Q12 [facility] PRN Reason: Protocol Last Admin: 12/11/17 10:07 Dose: 5,000 units Hydralazine HCl (Apresoline) 10 mg IVP Q6 PRN PRN Reason: For SBP > 150 Last Admin: 12/08/17 23:23 Dose: 10 mg Meropenem/Sodium Chloride (Meropenem 1g/Ns 100ml Ivpb) 1 gm in 100 mls @ 100 mls/hr IVPB Q8 [facility] PRN Reason: Protocol Stop: 12/14/17 22:01 Last Admin: 12/11/17 05:54 Dose: 100 mls/hr Ibuprofen (Motrin Tab) 400 mg PO Q6H PRN PRN Reason: Fever >100.4 F Last Admin: 12/10/17 23:04 Dose: 400 mg Insulin Detemir (Levemir) 10 unit SC HS [facility] Last Admin: 12/10/17 22:20 Dose: 10 unit Insulin Human Regular (Humulin R High) 0 units SC ACHS [facility] PRN Reason: Protocol Last Admin: 12/11/17 07:39 Dose: Not Given Levalbuterol HCl (Xopenex) 0.63 mg IH [id number] [facility] Last Admin: 12/11/17 11:29 Dose: 0.63 mg Lorazepam (Ativan) 1 mg IVP Q6H PRN; Protocol PRN Reason: Anxiety Last Admin: 12/10/17 03:45 Dose: 1 mg Multivitamins/Minerals (Therapeutic-M Tab) 1 tab PO 0800 [facility] Last Admin: 12/11/17 08:17 Dose: 1 tab Pantoprazole Sodium (Protonix Ec Tab) 40 mg PO ACB [facility] Last Admin: 12/11/17 08:18 Dose: 40 mg Potassium Chloride (K-Dur 20 Meq Er Tab) 40 meq PO BID [facility] Last Admin: 12/11/17 10:08 Dose: 40 meq Thiamine HCl (Vitamin B1 Tab) 100 mg PO DAILY [facility] Last Admin: 12/11/17 10:13 Dose: 100 mg - Labs Labs: 12/11/17 07:00 12/11/17 07:00 PT 12.5 SECONDS (9.4-12.5) 12/09/17 10:00 INR 1.09 (0.93-1.08) H 12/09/17 10:00 APTT 28.3 Seconds (25.1-36.5) 11/30/17 05:30 Attending/Attestation - Attestation I have fully participated in the care of the patient.: Yes I have reviewed all pertinent clinical information, including history, physical exam and plan: Yes Notes (Text): 12/11/17 13:26 Medical record note made by the resident after discussion with my direction and input after the patient was personally seen and examined by me. I have reviewed the chart and agree that the record accurately reflects by personal performance of the history, physical exam, data review, and medical decision-making, in the course for the patient. I have also personally directed the plan of care.
[2017-12-11] MEDS: Potassium Chloride 20 mEq ER Tab PO SCH ×2 (10:08→17:31)
[2017-12-11] MEDS: Clotrimazole 1% Top Soln(10 ml) TOP SCH ×2 (10:11→17:31)
--- NOTE | 2017-12-11 11:53 | CP.PCM.PN ---
Subjective - Date & Time of Evaluation Date of Evaluation: 12/11/17 Time of Evaluation: 10:25 - Subjective Subjective: Comofortable in bed, no fevers, not in distress. Objective - Vital Signs/Intake and Output Vital Signs (last 24 hours): Temp Pulse Resp BP Pulse Ox 97.4 F L 88 20 158/99 H 90 L 12/11/17 07:48 12/11/17 07:48 12/11/17 07:48 12/11/17 07:48 12/10/17 16:00 Intake and Output: 12/11/17 12/11/17 06:59 18:59 Intake Total 660 Balance 660 - Medications Medications: Current Medications Acetaminophen (Tylenol 325mg Tab) 650 mg PO Q6H PRN PRN Reason: Fever >100.4 F Last Admin: 12/05/17 11:08 Dose: 650 mg Acetylcysteine (Acetylcysteine 20%) 4 ml IH BIDRESP [facility] Last Admin: 12/11/17 07:31 Dose: 4 ml Amlodipine Besylate (Norvasc) 10 mg PO DAILY [facility] Last Admin: 12/10/17 10:27 Dose: 10 mg Aspirin (Ecotrin) 81 mg PO DAILY [facility] Last Admin: 12/10/17 10:25 Dose: 81 mg Atorvastatin Calcium (Lipitor) 40 mg PO DIN [facility] Last Admin: 12/04/17 16:27 Dose: 40 mg Clotrimazole (Lotrimin Af 1%) 0 ml TOP BID [facility] Last Admin: 12/10/17 17:42 Dose: 1 applic Folic Acid (Folic Acid) 1 mg PO DAILY [facility] Last Admin: 12/10/17 10:25 Dose: 1 mg Heparin Sodium (Porcine) (Heparin) 5,000 units SC Q12 YOLI PRN Reason: Protocol Last Admin: 12/10/17 22:19 Dose: 5,000 units Hydralazine HCl (Apresoline) 10 mg IVP Q6 PRN PRN Reason: For SBP > 150 Last Admin: 12/08/17 23:23 Dose: 10 mg Meropenem/Sodium Chloride (Meropenem 1g/Ns 100ml Ivpb) 1 gm in 100 mls @ 100 mls/hr IVPB Q8 YOLI PRN Reason: Protocol Stop: 12/14/17 22:01 Last Admin: 12/11/17 05:54 Dose: 100 mls/hr Ibuprofen (Motrin Tab) 400 mg PO Q6H PRN PRN Reason: Fever >100.4 F Last Admin: 12/10/17 23:04 Dose: 400 mg Insulin Detemir (Levemir) 10 unit SC HS [facility] Last Admin: 12/10/17 22:20 Dose: 10 unit Insulin Human Regular (Humulin R High) 0 units SC ACHS YOLI PRN Reason: Protocol Last Admin: 12/11/17 07:39 Dose: Not Given Levalbuterol HCl (Xopenex) 0.63 mg IH [id number] [facility] Last Admin: 12/11/17 07:32 Dose: 0.63 mg Lorazepam (Ativan) 1 mg IVP Q6H PRN; Protocol PRN Reason: Anxiety Last Admin: 12/10/17 03:45 Dose: 1 mg Multivitamins/Minerals (Therapeutic-M Tab) 1 tab PO 0800 [facility] Last Admin: 12/10/17 10:29 Dose: 1 tab Oseltamivir Phosphate (Tamiflu Cap) 75 mg PO BID [facility] PRN Reason: Protocol Stop: 12/11/17 12:59 Last Admin: 12/10/17 17:42 Dose: 75 mg Pantoprazole Sodium (Protonix Ec Tab) 40 mg PO ACB [facility] Last Admin: 12/10/17 10:28 Dose: 40 mg Potassium Chloride (K-Dur 20 Meq Er Tab) 40 meq PO BID [facility] Last Admin: 12/10/17 17:41 Dose: 40 meq Thiamine HCl (Vitamin B1 Tab) 100 mg PO DAILY [facility] Last Admin: 12/10/17 10:30 Dose: 100 mg - Labs Labs: 12/11/17 07:00 12/11/17 07:00 PT 12.5 SECONDS (9.4-12.5) 12/09/17 10:00 INR 1.09 (0.93-1.08) H 12/09/17 10:00 APTT 28.3 Seconds (25.1-36.5) 11/30/17 05:30 - Constitutional Appears: Chronically Ill - Head Exam Head Exam: NORMAL INSPECTION - ENT Exam ENT Exam: Mucous Membranes Moist - Neck Exam Neck Exam: absent: Meningismus - Respiratory Exam Respiratory Exam: Decreased Breath Sounds - Cardiovascular Exam Cardiovascular Exam: +S1, +S2 - GI/Abdominal Exam GI & Abdominal Exam: Soft. absent: Tenderness Assessment and Plan - Assessment and Plan (Free Text) Plan: Assessment sepsis due to multifocal HCAP on top of Influenza A infection in this patient with strep viridans and CoNS bacteremia from right gluteal and back cellulitis, R/O Sammie infection of sacral area as well Plan continue Vancomycin and Merrem day 6; S/P Tamiflu continue topical antifungal over sacral area as well awaiting TAHIR when feasible will continue to monitor clinically
[2017-12-11] MEDS: Vancomycin 1gm in NS 250ml 1 GM/250 ML BAG IVPB SCH (14:04)
[2017-12-11] MEDS ORDERED: Potassium Chloride 10 mEq ER Tab PO STA (14:04)
[2017-12-11] MEDS: Insulin Detemir 100 units/ml Vial (Levemir) SC SCH (23:14)
[2017-12-12] MEDS: Levalbuterol 0.63 MG/3 ML Inhal Soln UD IH SCH ×6 (00:02→20:00)
[2017-12-12] MEDS: Vancomycin 1gm in NS 250ml 1 GM/250 ML BAG IVPB SCH ×2 (01:09→13:18)
[2017-12-12] MEDS: Meropenem 1g/NS 100mL IVPB 1 GM/100 ML PIGGYBACK IVPB SCH ×3 (05:41→21:40)
[2017-12-12] MEDS: Acetylcysteine 20% Inhal Soln (4ml) IH SCH ×2 (07:17→20:01)
[2017-12-12 07:25] LABS: BASO # 0.02 K/mm3 (0.0-2.0); BASO % 0.4 % (0.0-3.0); EOS # 0.2 (0.0-0.7); GRAN # 2.28 (1.4-6.5); HEMOGLOBIN 12.6 g/dL (14.0-18.0); LYMPH # 2.1 (1.2-3.4); LYMPH % 40.4 % (22.0-35.0); MEAN CELL VOLUME 84.9 fl (80.0-105.0); MEAN CORPUSCULAR HEMOGLOBIN 28.1 pg (25.0-35.0); MEAN CORPUSCULAR HGB CONC 33.1 g/dl (31.0-37.0); MEAN PLATELET VOLUME 9.6 fl (7.0-11.0); MONO # 0.6 (0.1-0.6); MONO % 11.2 % (1.0-6.0); RBC 4.49 10^6/uL (3.5-6.1); RED CELL DISTRIBUTION WIDTH 15.5 % (11.5-14.5); WHITE BLOOD COUNT 5.1 10^3/ul (4.5-11.0)
[2017-12-12] MEDS: Pantoprazole 40 mg EC Tab PO SCH (07:26)
[2017-12-12 07:42] LABS: ALB/GLOB RATIO 0.9 (1.1-1.8); ALT/SGPT 57 U/L (7-56); AST/SGOT 49 U/L (17-59); BLOOD UREA NITROGEN 7 mg/dL (7-21); CALCIUM 9.3 mg/dL (8.4-10.5); GFR NON-AFRICAN AMERICAN > 60
[2017-12-12] MEDS: Insulin Reg-HIGH-Coverage SC SCH ×4 (08:03→21:41)
[2017-12-12] MEDS: Multivitamin With Minerals Tab PO SCH (08:26)
--- NOTE | 2017-12-12 09:25 | CP.PCM.PN ---
<Misty Smith - Last Filed: 12/12/17 09:50> Subjective - Date & Time of Evaluation Date of Evaluation: 12/12/17 Time of Evaluation: 09:25 - Subjective Subjective: Misty Smith, PGY1, Medicine Progress Note for Dr Schumacher: Patient seen and examined at bedside. Pt had large soft brown stool with mucoid bloody streaks, FOBT positive. Hemoglobin stable this AM. Pt denies rectal/ abdominal pain, fevers, chills, nausea, vomiting, cough. Pt's mental status at baseline, oriented to person, place, not time. Unable to communicate with any family member that can give consent for procedure. Objective - Vital Signs/Intake and Output Vital Signs (last 24 hours): Temp Pulse Resp BP Pulse Ox 97 F L 92 H 20 160/103 H 93 L 12/12/17 07:56 12/12/17 07:56 12/12/17 07:56 12/12/17 07:56 12/12/17 07:56 Intake and Output: 12/12/17 12/12/17 06:59 18:59 Intake Total 120 Balance 120 - Medications Medications: Current Medications Acetaminophen (Tylenol 325mg Tab) 650 mg PO Q6H PRN PRN Reason: Fever >100.4 F Last Admin: 12/05/17 11:08 Dose: 650 mg Acetylcysteine (Acetylcysteine 20%) 4 ml IH BIDRESP [facility] Last Admin: 12/12/17 07:17 Dose: Not Given Amlodipine Besylate (Norvasc) 10 mg PO DAILY [facility] Last Admin: 12/11/17 10:11 Dose: 10 mg Aspirin (Ecotrin) 81 mg PO DAILY [facility] Last Admin: 12/11/17 10:06 Dose: 81 mg Atorvastatin Calcium (Lipitor) 40 mg PO DIN [facility] Last Admin: 12/04/17 16:27 Dose: 40 mg Clotrimazole (Lotrimin Af 1%) 0 ml TOP BID [facility] Last Admin: 12/11/17 17:31 Dose: 1 applic Folic Acid (Folic Acid) 1 mg PO DAILY [facility] Last Admin: 12/11/17 10:07 Dose: 1 mg Heparin Sodium (Porcine) (Heparin) 5,000 units SC Q12 YOLI PRN Reason: Protocol Last Admin: 12/11/17 23:11 Dose: 5,000 units Hydralazine HCl (Apresoline) 10 mg IVP Q6 PRN PRN Reason: For SBP > 150 Last Admin: 12/12/17 06:03 Dose: 10 mg Meropenem/Sodium Chloride (Meropenem 1g/Ns 100ml Ivpb) 1 gm in 100 mls @ 100 mls/hr IVPB Q8 YOLI PRN Reason: Protocol Stop: 12/14/17 22:01 Last Admin: 12/12/17 05:41 Dose: 100 mls/hr Vancomycin HCl (Vancomycin 1gm) 1 gm in 250 mls @ 167 mls/hr IVPB Q12H YOLI PRN Reason: Protocol Last Admin: 12/12/17 01:09 Dose: 167 mls/hr Ibuprofen (Motrin Tab) 400 mg PO Q6H PRN PRN Reason: Fever >100.4 F Last Admin: 12/10/17 23:04 Dose: 400 mg Insulin Detemir (Levemir) 10 unit SC HS [facility] Last Admin: 12/11/17 23:14 Dose: 10 unit Insulin Human Regular (Humulin R High) 0 units SC ACHS YOLI PRN Reason: Protocol Last Admin: 12/12/17 08:03 Dose: 2 units Levalbuterol HCl (Xopenex) 0.63 mg IH [id number] [facility] Last Admin: 12/12/17 07:17 Dose: Not Given Lorazepam (Ativan) 1 mg IVP Q6H PRN; Protocol PRN Reason: Anxiety Last Admin: 12/10/17 03:45 Dose: 1 mg Multivitamins/Minerals (Therapeutic-M Tab) 1 tab PO 0800 [facility] Last Admin: 12/11/17 08:17 Dose: 1 tab Pantoprazole Sodium (Protonix Ec Tab) 40 mg PO ACB [facility] Last Admin: 12/11/17 08:18 Dose: 40 mg Potassium Chloride (K-Dur 20 Meq Er Tab) 40 meq PO BID [facility] Last Admin: 12/11/17 17:31 Dose: 40 meq Thiamine HCl (Vitamin B1 Tab) 100 mg PO DAILY [facility] Last Admin: 12/11/17 10:13 Dose: 100 mg - Labs Labs: 12/12/17 07:00 12/12/17 07:00 PT 12.5 SECONDS (9.4-12.5) 12/09/17 10:00 INR 1.09 (0.93-1.08) H 12/09/17 10:00 APTT 28.3 Seconds (25.1-36.5) 11/30/17 05:30 - Additional Findings Additional findings: - Constitutional Appears: Non-toxic, No Acute Distress - Head Exam Head Exam: ATRAUMATIC, NORMOCEPHALIC - Eye Exam Eye Exam: EOMI, PERRL. absent: Conjunctival injection, Nystagmus, Scleral icterus - ENT Exam ENT Exam: Mucous Membranes Moist - Neck Exam Neck Exam: Full ROM - Respiratory Exam Respiratory Exam: Clear to Ausculation Bilateral, NORMAL BREATHING PATTERN. absent: Accessory Muscle Use, Rales, Rhonchi, Wheezes - Cardiovascular Exam Cardiovascular Exam: RRR, +S1, +S2. absent: Murmur - GI/Abdominal Exam GI & Abdominal Exam: Soft, Normal Bowel Sounds. absent: Distended, Tenderness, Mass, Organomegaly - Extremities Exam Extremities Exam: Normal Inspection. absent: Calf Tenderness, Pedal Edema - Neurological Exam Neurological Exam: Alert, Awake (orietend x2, at baseline) - Psychiatric Exam Psychiatric exam: Normal Affect, Normal Mood - Skin Skin Exam: Dry, Warm Additional comments: Erythematous rash extending from right lateral thigh to anal cleft; two stage 2 sacral decubitus ulcers of right lateral thigh and right gluteal region Assessment and Plan - Assessment and Plan (Free Text) Assessment: 57 year old male with an unknown past medical history who was brought in by ambulance after being found with an AMS and covered in feces in his apartment. His mental status has progressively improved since admission. He is currently on IV Vancomycin and Zosyn for coagulase negative staph and strep viridans bacteremia. Repeat blood cultures negative. An MRI Brain showed acute vs. subacute lacunar infarct in the left parietal region. Neurology is following and patient is on stroke prevention medication. Patient continues to have fevers while on antibiotic therapy and noted to have an echo with bubble study that couldn't rule out septic vegetations of the aortic valve. ID is following and recommends continuing antibiotics. Cardiology was consulted for TAHIR evaluation to rule out endocarditis and septic vegetations. Patient was found to have new colonic mass and multifocal pneumonia on CT chest/abdomen/pelvis and concerns for metastatic disease of the liver on abdominal ultrasound. GI was consulted. Flexible sigmoidoscopy/Colonoscopy and TAHIR to be done when consent can be obtained. Pt had soft brown stool overnight with mucoid bloody streaks, FOBT positive, h/h stable this AM, will repeat hgb in afternoon: 1. Toxic-Metabolic Encephalopathy secondary to Strep Viridans/Coag Neg Staph Bacteremia -Repeat blood cultures negative for five days -Continue IV Vancomycin (Day 13) and Merrem (Day 7) -Continue Motrin 400mg Q6 PRN for fever -TAHIR to be done when consent can be obtained -Cardiology, Neurology and ID consulted, all recommendations appreciated -PT/OT recommending continued PT and JOSIAH upon discharge 2. New Colonic Neoplasm -Flexible sigmoidoscopy/Colonoscopy to be done when consent can be obtained -GI consulted, all recommendations appreciated 3. Multifocal Pneumonia -Continue IV Vancomycin (Day 12) and Merrem (Day 6) -Continue Xopenex [id number] and continued Mucormyst BID 4. Influenza A -Continue Tamiflu (Day 4) -Continue droplet precautions 5. Ischemic Stroke -Continue ASA 81mg -Lipitor 40mg currently held in setting of elevated LFT's 6. Transaminitis -Stable -Hepatitis panel negative -PRN Tylenol and Lipitor 40mg held -Continue to monitor with daily CMP's 7. History of Alcohol Abuse/Withdrawal -Continue Ativan 1mg IVP Q6H PRN -PO Folate, Thiamine, and MV supplementation -Fall, Seizure and Aspiration precautions 8. Hyperglycemia -SSI-High and Accuchecks ACHS -Levemir 10u HS -Carb Consistent Diet 9. HTN -Continue Norvasc 10mg PO daily and hydralazine 10mg IVP Q6 PRN 10. Stage 2 Sacral Decubitus Ulcers -Continue wound care and Q2 repositioning 11. Bloody bowel movement: 2/2 hemorrhoids vs sigmoid mass vs AVM vs C diff (less likely) - Pt afebrile, H/H stable, no leukocytosis - Only 1 episode documented so far. cont to monitor - Will repeat hemoglobin in the afternoon GI Prophylaxis: Protonix DVT Prophylaxis: Heparin and SCD's Patient seen and case discussed with attending, Dr. Schumacher. <Deanna Schumacher - Last Filed: 12/12/17 10:17> Objective - Vital Signs/Intake and Output Vital Signs (last 24 hours): Temp Pulse Resp BP Pulse Ox 97 F L 92 H 20 160/103 H 93 L 12/12/17 07:56 12/12/17 07:56 12/12/17 07:56 12/12/17 07:56 12/12/17 07:56 Intake and Output: 12/12/17 12/12/17 06:59 18:59 Intake Total 120 Balance 120 - Medications Medications: Current Medications Acetaminophen (Tylenol 325mg Tab) 650 mg PO Q6H PRN PRN Reason: Fever >100.4 F Last Admin: 12/05/17 11:08 Dose: 650 mg Acetylcysteine (Acetylcysteine 20%) 4 ml IH BIDRESP [facility] Last Admin: 12/12/17 07:17 Dose: Not Given Amlodipine Besylate (Norvasc) 10 mg PO DAILY [facility] Last Admin: 12/11/17 10:11 Dose: 10 mg Aspirin (Ecotrin) 81 mg PO DAILY [facility] Last Admin: 12/11/17 10:06 Dose: 81 mg Atorvastatin Calcium (Lipitor) 40 mg PO DIN [facility] Last Admin: 12/04/17 16:27 Dose: 40 mg Clotrimazole (Lotrimin Af 1%) 0 ml TOP BID [facility] Last Admin: 12/11/17 17:31 Dose: 1 applic Folic Acid (Folic Acid) 1 mg PO DAILY [facility] Last Admin: 12/11/17 10:07 Dose: 1 mg Heparin Sodium (Porcine) (Heparin) 5,000 units SC Q12 YOLI PRN Reason: Protocol Last Admin: 12/11/17 23:11 Dose: 5,000 units Hydralazine HCl (Apresoline) 10 mg IVP Q6 PRN PRN Reason: For SBP > 150 Last Admin: 12/12/17 06:03 Dose: 10 mg Meropenem/Sodium Chloride (Meropenem 1g/Ns 100ml Ivpb) 1 gm in 100 mls @ 100 mls/hr IVPB Q8 YOLI PRN Reason: Protocol Stop: 12/14/17 22:01 Last Admin: 12/12/17 05:41 Dose: 100 mls/hr Vancomycin HCl (Vancomycin 1gm) 1 gm in 250 mls @ 167 mls/hr IVPB Q12H YOLI PRN Reason: Protocol Last Admin: 12/12/17 01:09 Dose: 167 mls/hr Ibuprofen (Motrin Tab) 400 mg PO Q6H PRN PRN Reason: Fever >100.4 F Last Admin: 02/23/18 23:04 Dose: 400 mg Insulin Detemir (Levemir) 10 unit SC HS [facility] Last Admin: 12/11/17 23:14 Dose: 10 unit Insulin Human Regular (Humulin R High) 0 units SC ACHS YOLI PRN Reason: Protocol Last Admin: 12/12/17 08:03 Dose: 2 units Levalbuterol HCl (Xopenex) 0.63 mg IH [id number] [facility] Last Admin: 12/12/17 07:17 Dose: Not Given Lorazepam (Ativan) 1 mg IVP Q6H PRN; Protocol PRN Reason: Anxiety Last Admin: 12/10/17 03:45 Dose: 1 mg Multivitamins/Minerals (Therapeutic-M Tab) 1 tab PO 0800 [facility] Last Admin: 12/11/17 08:17 Dose: 1 tab Pantoprazole Sodium (Protonix Ec Tab) 40 mg PO ACB [facility] Last Admin: 12/11/17 08:18 Dose: 40 mg Potassium Chloride (K-Dur 20 Meq Er Tab) 40 meq PO BID [facility] Last Admin: 12/11/17 17:31 Dose: 40 meq Thiamine HCl (Vitamin B1 Tab) 100 mg PO DAILY [facility] Last Admin: 12/11/17 10:13 Dose: 100 mg - Labs Labs: 12/12/17 07:00 12/12/17 07:00 PT 12.5 SECONDS (9.4-12.5) 12/09/17 10:00 INR 1.09 (0.93-1.08) H 12/09/17 10:00 APTT 28.3 Seconds (25.1-36.5) 11/30/17 05:30 Attending/Attestation - Attestation I have personally seen and examined this patient.: Yes I have fully participated in the care of the patient.: Yes I have reviewed all pertinent clinical information, including history, physical exam and plan: Yes Notes (Text): 12/12/17 10:16 Patient was seen and examined with bilingual medical assistant. Medical record note made by the resident after discussion with my direction and input after the patient was personally seen and examined by me. I have reviewed the chart and agree that the record accurately reflects by personal performance of the history, physical exam, data review, and medical decision-making, in the course for the patient. I have also personally directed the plan of care.
[2017-12-12] MEDS: Potassium Chloride 20 mEq ER Tab PO SCH ×2 (10:24→17:52)
[2017-12-12] MEDS: Clotrimazole 1% Top Soln(10 ml) TOP SCH ×2 (10:25→17:52)
--- NOTE | 2017-12-12 12:49 | CP.PCM.PN ---
Subjective - Date & Time of Evaluation Date of Evaluation: 12/12/17 Time of Evaluation: 11:35 - Subjective Subjective: No fevers, not in distress. Objective - Vital Signs/Intake and Output Vital Signs (last 24 hours): Temp Pulse Resp BP Pulse Ox 97 F L 92 H 20 160/103 H 93 L 12/12/17 07:56 12/12/17 07:56 12/12/17 07:56 12/12/17 07:56 12/12/17 07:56 Intake and Output: 12/12/17 12/12/17 06:59 18:59 Intake Total 120 Balance 120 - Medications Medications: Current Medications Acetaminophen (Tylenol 325mg Tab) 650 mg PO Q6H PRN PRN Reason: Fever >100.4 F Last Admin: 12/05/17 11:08 Dose: 650 mg Acetylcysteine (Acetylcysteine 20%) 4 ml IH BIDRESP [facility] Last Admin: 12/12/17 07:17 Dose: Not Given Amlodipine Besylate (Norvasc) 10 mg PO DAILY [facility] Last Admin: 12/11/17 10:11 Dose: 10 mg Aspirin (Ecotrin) 81 mg PO DAILY [facility] Last Admin: 12/11/17 10:06 Dose: 81 mg Atorvastatin Calcium (Lipitor) 40 mg PO DIN [facility] Last Admin: 12/04/17 16:27 Dose: 40 mg Clotrimazole (Lotrimin Af 1%) 0 ml TOP BID [facility] Last Admin: 12/11/17 17:31 Dose: 1 applic Folic Acid (Folic Acid) 1 mg PO DAILY [facility] Last Admin: 12/11/17 10:07 Dose: 1 mg Heparin Sodium (Porcine) (Heparin) 5,000 units SC Q12 YOLI PRN Reason: Protocol Last Admin: 12/11/17 23:11 Dose: 5,000 units Hydralazine HCl (Apresoline) 10 mg IVP Q6 PRN PRN Reason: For SBP > 150 Last Admin: 12/12/17 06:03 Dose: 10 mg Meropenem/Sodium Chloride (Meropenem 1g/Ns 100ml Ivpb) 1 gm in 100 mls @ 100 mls/hr IVPB Q8 YOLI PRN Reason: Protocol Stop: 12/14/17 22:01 Last Admin: 12/12/17 05:41 Dose: 100 mls/hr Vancomycin HCl (Vancomycin 1gm) 1 gm in 250 mls @ 167 mls/hr IVPB Q12H YOLI PRN Reason: Protocol Last Admin: 12/12/17 01:09 Dose: 167 mls/hr Ibuprofen (Motrin Tab) 400 mg PO Q6H PRN PRN Reason: Fever >100.4 F Last Admin: 12/10/17 23:04 Dose: 400 mg Insulin Detemir (Levemir) 10 unit SC HS [facility] Last Admin: 12/11/17 23:14 Dose: 10 unit Insulin Human Regular (Humulin R High) 0 units SC ACHS YOLI PRN Reason: Protocol Last Admin: 12/12/17 08:03 Dose: 2 units Levalbuterol HCl (Xopenex) 0.63 mg IH [id number] [facility] Last Admin: 12/12/17 07:17 Dose: Not Given Lorazepam (Ativan) 1 mg IVP Q6H PRN; Protocol PRN Reason: Anxiety Last Admin: 12/10/17 03:45 Dose: 1 mg Multivitamins/Minerals (Therapeutic-M Tab) 1 tab PO 0800 [facility] Last Admin: 12/11/17 08:17 Dose: 1 tab Pantoprazole Sodium (Protonix Ec Tab) 40 mg PO ACB [facility] Last Admin: 12/11/17 08:18 Dose: 40 mg Potassium Chloride (K-Dur 20 Meq Er Tab) 40 meq PO BID [facility] Last Admin: 12/11/17 17:31 Dose: 40 meq Thiamine HCl (Vitamin B1 Tab) 100 mg PO DAILY [facility] Last Admin: 12/11/17 10:13 Dose: 100 mg - Labs Labs: 12/12/17 07:00 12/12/17 07:00 PT 12.5 SECONDS (9.4-12.5) 12/09/17 10:00 INR 1.09 (0.93-1.08) H 12/09/17 10:00 APTT 28.3 Seconds (25.1-36.5) 11/30/17 05:30 - Constitutional Appears: Chronically Ill - Head Exam Head Exam: NORMAL INSPECTION - ENT Exam ENT Exam: Mucous Membranes Moist - Neck Exam Neck Exam: absent: Meningismus - Respiratory Exam Respiratory Exam: Decreased Breath Sounds - Cardiovascular Exam Cardiovascular Exam: +S1, +S2 - GI/Abdominal Exam GI & Abdominal Exam: Soft. absent: Tenderness Assessment and Plan - Assessment and Plan (Free Text) Plan: Assessment sepsis due to multifocal HCAP on top of Influenza A infection in this patient with strep viridans and CoNS bacteremia from right gluteal and back cellulitis, R/O Sammie infection of sacral area as well Plan continue Vancomycin and Merrem day 7; S/P Tamiflu complete 7 days of this regimen, then switch to Rocephin for the Strep viridans bacteremia (would continue 4-6 weeks of Rocephin with weekly ESR, CRP, CBC, CMP) - unable to do TAHIR since patient unable to give consent and patient does not have family to give consent - discussed with Dr. Schumacher continue topical antifungal over sacral area as well will continue to monitor clinically
[2017-12-12 13:14] LABS: HEMOGLOBIN 13.1 g/dL (14.0-18.0)
[2017-12-12] MEDS: Insulin Detemir 100 units/ml Vial (Levemir) SC SCH (21:41)
[2017-12-13] MEDS: Levalbuterol 0.63 MG/3 ML Inhal Soln UD IH SCH ×6 (01:07→20:53)
[2017-12-13] MEDS: Vancomycin 1gm in NS 250ml 1 GM/250 ML BAG IVPB SCH (01:20)
[2017-12-13] MEDS: Meropenem 1g/NS 100mL IVPB 1 GM/100 ML PIGGYBACK IVPB SCH (05:22)
[2017-12-13 06:24] LABS: BASO # 0.03 K/mm3 (0.0-2.0); BASO % 0.5 % (0.0-3.0); EOS # 0.2 (0.0-0.7); EOS % 2.8 % (1.5-5.0); GRAN # 2.66 (1.4-6.5); GRAN % 43.4 % (50.0-68.0); HEMOGLOBIN 13.2 g/dL (14.0-18.0); LYMPH # 2.7 (1.2-3.4); MEAN CORPUSCULAR HEMOGLOBIN 27.9 pg (25.0-35.0); MEAN CORPUSCULAR HGB CONC 32.8 g/dl (31.0-37.0); MONO # 0.6 (0.1-0.6); MONO % 9.3 % (1.0-6.0); RBC 4.73 10^6/uL (3.5-6.1); RED CELL DISTRIBUTION WIDTH 15.8 % (11.5-14.5); WHITE BLOOD COUNT 6.1 10^3/ul (4.5-11.0)
[2017-12-13 07:07] LABS: ALB/GLOB RATIO 0.9 (1.1-1.8); ALBUMIN 3.1 g/dL (3.0-4.8); ALT/SGPT 44 U/L (7-56); AST/SGOT 42 U/L (17-59); BLOOD UREA NITROGEN 11 mg/dL (7-21); CALCIUM 9.3 mg/dL (8.4-10.5); GFR NON-AFRICAN AMERICAN > 60
[2017-12-13] MEDS: Acetylcysteine 20% Inhal Soln (4ml) IH SCH ×2 (07:09→20:53)
[2017-12-13] MEDS: Insulin Reg-HIGH-Coverage SC SCH ×4 (08:49→21:05)
[2017-12-13] MEDS: Potassium Chloride 20 mEq ER Tab PO SCH ×2 (09:08→17:37)
[2017-12-13] MEDS: Pantoprazole 40 mg EC Tab PO SCH (09:09)
[2017-12-13] MEDS: Multivitamin With Minerals Tab PO SCH (09:09)
[2017-12-13] MEDS: Clotrimazole 1% Top Soln(10 ml) TOP SCH ×2 (09:13→17:37)
--- NOTE | 2017-12-13 10:50 | CP.PCM.PN ---
<Ryan White - Last Filed: 12/13/17 10:41> Subjective - Date & Time of Evaluation Date of Evaluation: 12/13/17 Time of Evaluation: 10:41 - Subjective Subjective: Medicine Progress Note: Patient seen and assessed at bedside. No acute events overnight noted by patient or nursing staff. Patient currently awake and oriented to person and place but not to time or event. Patient denies fever, chills, headache, chest pain, SOB, abdominal pain, N/V/D/C, urinary symptoms, or any numbness/tingling of any extremity. Objective - Vital Signs/Intake and Output Vital Signs (last 24 hours): Temp Pulse Resp BP Pulse Ox 97.6 F 97 H 20 153/101 H 92 L 12/13/17 08:23 12/13/17 08:32 12/13/17 08:23 12/13/17 09:08 12/13/17 08:23 Intake and Output: 12/13/17 12/13/17 06:59 18:59 Intake Total 120 Balance 120 - Medications Medications: Current Medications Acetaminophen (Tylenol 325mg Tab) 650 mg PO Q6H PRN PRN Reason: Fever >100.4 F Last Admin: 12/05/17 11:08 Dose: 650 mg Acetylcysteine (Acetylcysteine 20%) 4 ml IH BIDRESP [facility] Last Admin: 12/13/17 07:09 Dose: 4 ml Amlodipine Besylate (Norvasc) 10 mg PO DAILY [facility] Last Admin: 12/13/17 09:08 Dose: 10 mg Aspirin (Ecotrin) 81 mg PO DAILY [facility] Last Admin: 12/13/17 09:09 Dose: 81 mg Atorvastatin Calcium (Lipitor) 40 mg PO DIN [facility] Last Admin: 12/04/17 16:27 Dose: 40 mg Clotrimazole (Lotrimin Af 1%) 0 ml TOP BID [facility] Last Admin: 12/13/17 09:13 Dose: 1 applic Folic Acid (Folic Acid) 1 mg PO DAILY [facility] Last Admin: 12/13/17 09:08 Dose: 1 mg Heparin Sodium (Porcine) (Heparin) 5,000 units SC Q12 YOLI PRN Reason: Protocol Last Admin: 12/13/17 09:09 Dose: 5,000 units Hydralazine HCl (Apresoline) 10 mg IVP Q6 PRN PRN Reason: For SBP > 150 Last Admin: 12/13/17 08:32 Dose: 10 mg Ceftriaxone Sodium (Rocephin 2 Gm Ivpb) 2 gm in 100 mls @ 100 mls/hr IVPB DAILY [facility] PRN Reason: Protocol Ibuprofen (Motrin Tab) 400 mg PO Q6H PRN PRN Reason: Fever >100.4 F Last Admin: 12/10/17 23:04 Dose: 400 mg Insulin Detemir (Levemir) 10 unit SC HS [facility] Last Admin: 12/12/17 21:41 Dose: 10 unit Insulin Human Regular (Humulin R High) 0 units SC ACHS [facility]OLI PRN Reason: Protocol Last Admin: 12/13/17 08:49 Dose: Not Given Levalbuterol HCl (Xopenex) 0.63 mg IH [id number] [facility] Last Admin: 12/13/17 07:10 Dose: 0.63 mg Lisinopril (Zestril) 10 mg PO DAILY [facility] Lorazepam (Ativan) 1 mg IVP Q6H PRN; Protocol PRN Reason: Anxiety Last Admin: 12/10/17 03:45 Dose: 1 mg Multivitamins/Minerals (Therapeutic-M Tab) 1 tab PO 0800 [facility] Last Admin: 12/13/17 09:09 Dose: 1 tab Pantoprazole Sodium (Protonix Ec Tab) 40 mg PO ACB [facility] Last Admin: 12/13/17 09:09 Dose: 40 mg Potassium Chloride (K-Dur 20 Meq Er Tab) 40 meq PO BID [facility] Last Admin: 12/13/17 09:08 Dose: 40 meq Thiamine HCl (Vitamin B1 Tab) 100 mg PO DAILY [facility] Last Admin: 12/13/17 09:09 Dose: 100 mg - Labs Labs: 12/13/17 05:30 12/13/17 05:30 PT 12.5 SECONDS (9.4-12.5) 12/09/17 10:00 INR 1.09 (0.93-1.08) H 12/09/17 10:00 APTT 28.3 Seconds (25.1-36.5) 11/30/17 05:30 - Constitutional Appears: Non-toxic, No Acute Distress - Head Exam Head Exam: ATRAUMATIC, NORMOCEPHALIC - Eye Exam Eye Exam: EOMI, Normal appearance, PERRL Pupil Exam: NORMAL ACCOMODATION - ENT Exam ENT Exam: Mucous Membranes Moist - Neck Exam Neck Exam: Full ROM. absent: Lymphadenopathy - Respiratory Exam Respiratory Exam: Clear to Ausculation Bilateral, NORMAL BREATHING PATTERN. absent: Accessory Muscle Use, Rales, Rhonchi, Wheezes, Respiratory Distress - Cardiovascular Exam Cardiovascular Exam: REGULAR RHYTHM, RRR, +S1, +S2 - GI/Abdominal Exam GI & Abdominal Exam: Soft, Normal Bowel Sounds. absent: Tenderness - Extremities Exam Extremities Exam: Normal Capillary Refill. absent: Calf Tenderness, Joint Swelling, Pedal Edema, Tenderness - Neurological Exam Neurological Exam: Alert, Awake. absent: Oriented x3 - Skin Skin Exam: Dry, Intact, Normal Color, Warm Additional comments: Erythematous rash extending from right lateral thigh to anal cleft; two stage 2 sacral decubitus ulcers of right lateral thigh and right gluteal region Assessment and Plan - Assessment and Plan (Free Text) Assessment: 57 year old male with an unknown past medical history who was brought in by ambulance after being found with an AMS and covered in feces in his apartment. His mental status has progressively improved since admission. He is currently on IV Vancomycin and Zosyn for coagulase negative staph and strep viridans bacteremia. Repeat blood cultures negative. An MRI Brain showed acute vs. subacute lacunar infarct in the left parietal region. Neurology is following and patient is on stroke prevention medication. Patient continues to have fevers while on antibiotic therapy and noted to have an echo with bubble study that couldn't rule out septic vegetations of the aortic valve. ID is following and recommends continuing antibiotics. Cardiology was consulted for TAHIR evaluation to rule out endocarditis and septic vegetations. Patient was found to have new colonic mass and multifocal pneumonia on CT chest/abdomen/pelvis and concerns for metastatic disease of the liver on abdominal ultrasound. GI was consulted. Flexible sigmoidoscopy/Colonoscopy and TAHIR to be done when consent can be obtained. Plan: 1. Toxic-Metabolic Encephalopathy secondary to Strep Viridans/Coag Neg Staph Bacteremia -Repeat blood cultures negative -Continue IV Vancomycin (Day 13) and Rocephin (Day 2) -Continue Motrin 400mg Q6 PRN for fever -TAHIR to be done when consent can be obtained -Cardiology, Neurology and ID consulted, all recommendations appreciated -PT/OT recommending continued PT and JOSIAH upon discharge 2. New Colonic Neoplasm -Flexible sigmoidoscopy/Colonoscopy to be done when consent can be obtained -GI consulted, all recommendations appreciated 3. Multifocal Pneumonia -Continue IV Vancomycin (Day 13) and Rocephin (Day 2) -Continue Xopenex [id number] and continued Mucormyst BID 4. Ischemic Stroke -Continue ASA 81mg -Lipitor 40mg currently held in setting of elevated LFT's 5. Transaminitis -Resolved -Hepatitis panel negative -PRN Tylenol and Lipitor 40mg held -Continue to monitor with daily CMP's 6. History of Alcohol Abuse/Withdrawal -Continue Ativan 1mg IVP Q6H PRN -PO Folate, Thiamine, and MV supplementation -Fall, Seizure and Aspiration precautions 7. Hyperglycemia -SSI-High and Accuchecks ACHS -Levemir 10u HS -Carb Consistent Diet 8. HTN -Continue Norvasc 10mg PO daily and hydralazine 10mg IVP Q6 PRN -Start daily Lisinopril 10mg 9. Stage 2 Sacral Decubitus Ulcers -Continue wound care and Q2 repositioning -OOB to chair 10. Hypokalemia -Currently within normal limits -Continue daily supplementation with KCl 40meq BID GI Prophylaxis: Protonix DVT Prophylaxis: SCD's Patient seen and case discussed with attending, Dr. Schumacher. <Deanna Schumacher - Last Filed: 12/13/17 11:52> Objective - Vital Signs/Intake and Output Vital Signs (last 24 hours): Temp Pulse Resp BP Pulse Ox 97.6 F 89 20 127/83 92 L 12/13/17 08:23 12/13/17 10:58 12/13/17 08:23 12/13/17 10:58 12/13/17 08:23 Intake and Output: 12/13/17 12/13/17 06:59 18:59 Intake Total 120 Balance 120 - Medications Medications: Current Medications Acetaminophen (Tylenol 325mg Tab) 650 mg PO Q6H PRN PRN Reason: Fever >100.4 F Last Admin: 12/05/17 11:08 Dose: 650 mg Acetylcysteine (Acetylcysteine 20%) 4 ml IH BIDRESP [facility] Last Admin: 12/13/17 07:09 Dose: 4 ml Amlodipine Besylate (Norvasc) 10 mg PO DAILY [facility] Last Admin: 12/13/17 09:08 Dose: 10 mg Aspirin (Ecotrin) 81 mg PO DAILY [facility] Last Admin: 12/13/17 09:09 Dose: 81 mg Atorvastatin Calcium (Lipitor) 40 mg PO DIN [facility] Last Admin: 12/04/17 16:27 Dose: 40 mg Clotrimazole (Lotrimin Af 1%) 0 ml TOP BID [facility] Last Admin: 12/13/17 09:13 Dose: 1 applic Folic Acid (Folic Acid) 1 mg PO DAILY [facility] Last Admin: 12/13/17 09:08 Dose: 1 mg Heparin Sodium (Porcine) (Heparin) 5,000 units SC Q12 YOLI PRN Reason: Protocol Last Admin: 12/13/17 09:09 Dose: 5,000 units Hydralazine HCl (Apresoline) 10 mg IVP Q6 PRN PRN Reason: For SBP > 150 Last Admin: 12/13/17 08:32 Dose: 10 mg Ceftriaxone Sodium (Rocephin 2 Gm Ivpb) 2 gm in 100 mls @ 100 mls/hr IVPB DAILY [facility] PRN Reason: Protocol Last Admin: 12/13/17 10:58 Dose: 100 mls/hr Ibuprofen (Motrin Tab) 400 mg PO Q6H PRN PRN Reason: Fever >100.4 F Last Admin: 12/10/17 23:04 Dose: 400 mg Insulin Detemir (Levemir) 10 unit SC HS [facility] Last Admin: 12/12/17 21:41 Dose: 10 unit Insulin Human Regular (Humulin R High) 0 units SC ACHS [facility]I PRN Reason: Protocol Last Admin: 12/13/17 08:49 Dose: Not Given Levalbuterol HCl (Xopenex) 0.63 mg IH [id number] [facility] Last Admin: 12/13/17 07:10 Dose: 0.63 mg Lisinopril (Zestril) 10 mg PO DAILY [facility] Last Admin: 12/13/17 10:58 Dose: 10 mg Lorazepam (Ativan) 1 mg IVP Q6H PRN; Protocol PRN Reason: Anxiety Last Admin: 12/10/17 03:45 Dose: 1 mg Multivitamins/Minerals (Therapeutic-M Tab) 1 tab PO 0800 [facility] Last Admin: 12/13/17 09:09 Dose: 1 tab Pantoprazole Sodium (Protonix Ec Tab) 40 mg PO ACB [facility] Last Admin: 12/13/17 09:09 Dose: 40 mg Potassium Chloride (K-Dur 20 Meq Er Tab) 40 meq PO BID [facility] Last Admin: 12/13/17 09:08 Dose: 40 meq Thiamine HCl (Vitamin B1 Tab) 100 mg PO DAILY [facility] Last Admin: 12/13/17 09:09 Dose: 100 mg - Labs Labs: 12/13/17 05:30 12/13/17 05:30 PT 12.5 SECONDS (9.4-12.5) 12/09/17 10:00 INR 1.09 (0.93-1.08) H 12/09/17 10:00 APTT 28.3 Seconds (25.1-36.5) 11/30/17 05:30 Attending/Attestation - Attestation I have personally seen and examined this patient.: Yes I have fully participated in the care of the patient.: Yes I have reviewed all pertinent clinical information, including history, physical exam and plan: Yes Notes (Text): 12/13/17 11:51 Medical record note made by the resident after discussion with my direction and input after the patient was personally seen and examined by me. I have reviewed the chart and agree that the record accurately reflects by personal performance of the history, physical exam, data review, and medical decision-making, in the course for the patient. I have also personally directed the plan of care. 57 year old male with an unknown past medical history was admitted with AMS and covered in feces in his apartment..Blood cultures grew Streptococus viridan.Echo with bubble study couldn't rule out septic vegetations of the aortic valve. Family is not available to give consent for TAHIR. Patient is also found to have new colonic mass and multifocal pneumonia on CT chest/abdomen /pelvis and concerns for metastatic disease ?of the liver on abdominal ultrasound.MRI Brain showed acute vs. subacute lacunar infarct in the left parietal region. Repeat blood cultures are negative to date .GI planned for sigmoidoscopy for Rectosigmod lesion on CT abdomen and Pelvis.Family is not available to give the consent for the procedure.He is SP Influenza treatment, and HCAP treatment.Antibiotics today changed to Rocephin, need total 6 weeks treatment, Prognosis is guarded.
[2017-12-13] MEDS: cefTRIAXone 2 GM IN NS 2 GM/100 ML BAG IVPB SCH (10:58)
--- NOTE | 2017-12-13 12:12 | CP.PCM.PN ---
Subjective - Date & Time of Evaluation Date of Evaluation: 12/13/17 Time of Evaluation: 09:40 - Subjective Subjective: No fevers, not in distress, no diarrhea. Objective - Vital Signs/Intake and Output Vital Signs (last 24 hours): Temp Pulse Resp BP Pulse Ox 97.6 F 97 H 20 153/101 H 92 L 12/13/17 08:23 12/13/17 08:32 12/13/17 08:23 12/13/17 09:08 12/13/17 08:23 Intake and Output: 12/13/17 12/13/17 06:59 18:59 Intake Total 120 Balance 120 - Medications Medications: Current Medications Acetaminophen (Tylenol 325mg Tab) 650 mg PO Q6H PRN PRN Reason: Fever >100.4 F Last Admin: 12/05/17 11:08 Dose: 650 mg Acetylcysteine (Acetylcysteine 20%) 4 ml IH BIDRESP [facility] Last Admin: 12/13/17 07:09 Dose: 4 ml Amlodipine Besylate (Norvasc) 10 mg PO DAILY [facility] Last Admin: 12/13/17 09:08 Dose: 10 mg Aspirin (Ecotrin) 81 mg PO DAILY [facility] Last Admin: 12/13/17 09:09 Dose: 81 mg Atorvastatin Calcium (Lipitor) 40 mg PO DIN [facility] Last Admin: 12/04/17 16:27 Dose: 40 mg Clotrimazole (Lotrimin Af 1%) 0 ml TOP BID [facility] Last Admin: 12/13/17 09:13 Dose: 1 applic Folic Acid (Folic Acid) 1 mg PO DAILY [facility] Last Admin: 12/13/17 09:08 Dose: 1 mg Heparin Sodium (Porcine) (Heparin) 5,000 units SC Q12 YOLI PRN Reason: Protocol Last Admin: 12/13/17 09:09 Dose: 5,000 units Hydralazine HCl (Apresoline) 10 mg IVP Q6 PRN PRN Reason: For SBP > 150 Last Admin: 12/13/17 08:32 Dose: 10 mg Meropenem/Sodium Chloride (Meropenem 1g/Ns 100ml Ivpb) 1 gm in 100 mls @ 100 mls/hr IVPB Q8 YOLI PRN Reason: Protocol Stop: 12/14/17 22:01 Last Admin: 12/13/17 05:22 Dose: 100 mls/hr Vancomycin HCl (Vancomycin 1gm) 1 gm in 250 mls @ 167 mls/hr IVPB Q12H [facility]I PRN Reason: Protocol Last Admin: 12/13/17 01:20 Dose: 167 mls/hr Ibuprofen (Motrin Tab) 400 mg PO Q6H PRN PRN Reason: Fever >100.4 F Last Admin: 12/10/17 23:04 Dose: 400 mg Insulin Detemir (Levemir) 10 unit SC HS [facility] Last Admin: 12/12/17 21:41 Dose: 10 unit Insulin Human Regular (Humulin R High) 0 units SC ACHS [facility]I PRN Reason: Protocol Last Admin: 12/13/17 08:49 Dose: Not Given Levalbuterol HCl (Xopenex) 0.63 mg IH [id number] [facility] Last Admin: 12/13/17 07:10 Dose: 0.63 mg Lorazepam (Ativan) 1 mg IVP Q6H PRN; Protocol PRN Reason: Anxiety Last Admin: 12/10/17 03:45 Dose: 1 mg Multivitamins/Minerals (Therapeutic-M Tab) 1 tab PO 0800 [facility] Last Admin: 12/13/17 09:09 Dose: 1 tab Pantoprazole Sodium (Protonix Ec Tab) 40 mg PO ACB [facility] Last Admin: 12/13/17 09:09 Dose: 40 mg Potassium Chloride (K-Dur 20 Meq Er Tab) 40 meq PO BID [facility] Last Admin: 12/13/17 09:08 Dose: 40 meq Thiamine HCl (Vitamin B1 Tab) 100 mg PO DAILY [facility] Last Admin: 12/13/17 09:09 Dose: 100 mg - Labs Labs: 12/13/17 05:30 12/13/17 05:30 PT 12.5 SECONDS (9.4-12.5) 12/09/17 10:00 INR 1.09 (0.93-1.08) H 12/09/17 10:00 APTT 28.3 Seconds (25.1-36.5) 11/30/17 05:30 - Constitutional Appears: Chronically Ill - Head Exam Head Exam: NORMAL INSPECTION - ENT Exam ENT Exam: Mucous Membranes Moist - Neck Exam Neck Exam: absent: Meningismus - Respiratory Exam Respiratory Exam: Decreased Breath Sounds - Cardiovascular Exam Cardiovascular Exam: +S1, +S2 - GI/Abdominal Exam GI & Abdominal Exam: Soft. absent: Tenderness Assessment and Plan - Assessment and Plan (Free Text) Plan: Assessment sepsis due to multifocal HCAP on top of Influenza A infection in this patient with strep viridans and CoNS bacteremia from right gluteal and back cellulitis, R/O Sammie infection of sacral area as well Plan S/P 7 days of Vancomycin and Merrem day 7; S/P Tamiflu; will now switch to Rocephin for the Strep viridans bacteremia (would continue 4-6 weeks of Rocephin with weekly ESR, CRP, CBC, CMP) - unable to do TAHIR since patient unable to give consent and patient does not have family to give consent - discussed with Dr. Schumacher previously continue topical antifungal over sacral area as well will continue to monitor clinically
[2017-12-13] MEDS: Insulin Detemir 100 units/ml Vial (Levemir) SC SCH (21:03)
[2017-12-14] MEDS: Levalbuterol 0.63 MG/3 ML Inhal Soln UD IH SCH ×6 (00:45→19:39)
[2017-12-14 06:27] LABS: BASO # 0.03 K/mm3 (0.0-2.0); BASO % 0.4 % (0.0-3.0); EOS # 0.1 (0.0-0.7); EOS % 1.5 % (1.5-5.0); GRAN # 3.6 (1.4-6.5); GRAN % 47.5 % (50.0-68.0); HEMOGLOBIN 13.5 g/dL (14.0-18.0); LYMPH # 3.2 (1.2-3.4); LYMPH % 41.9 % (22.0-35.0); MEAN CELL VOLUME 85.2 fl (80.0-105.0); MEAN CORPUSCULAR HEMOGLOBIN 27.8 pg (25.0-35.0); MEAN CORPUSCULAR HGB CONC 32.7 g/dl (31.0-37.0); MEAN PLATELET VOLUME 8.9 fl (7.0-11.0); MONO # 0.7 (0.1-0.6); MONO % 8.7 % (1.0-6.0); RBC 4.85 10^6/uL (3.5-6.1); RED CELL DISTRIBUTION WIDTH 16.3 % (11.5-14.5); WHITE BLOOD COUNT 7.6 10^3/ul (4.5-11.0)
[2017-12-14] MEDS: Acetylcysteine 20% Inhal Soln (4ml) IH SCH ×2 (07:19→19:39)
[2017-12-14 07:39] LABS: ALB/GLOB RATIO 0.9 (1.1-1.8); ALBUMIN 3.3 g/dL (3.0-4.8); ALT/SGPT 45 U/L (7-56); AST/SGOT 30 U/L (17-59); BLOOD UREA NITROGEN 14 mg/dL (7-21); CALCIUM 9.7 mg/dL (8.4-10.5); GFR NON-AFRICAN AMERICAN > 60
[2017-12-14] MEDS: Insulin Reg-HIGH-Coverage SC SCH ×4 (08:53→22:05)
[2017-12-14] MEDS: Pantoprazole 40 mg EC Tab PO SCH ×2 (08:54→09:03)
[2017-12-14] MEDS: Multivitamin With Minerals Tab PO SCH (08:54)
[2017-12-14] MEDS: Potassium Chloride 20 mEq ER Tab PO SCH ×2 (09:04→18:03)
[2017-12-14] MEDS: Clotrimazole 1% Top Soln(10 ml) TOP SCH ×2 (09:05→18:03)
[2017-12-14] MEDS: cefTRIAXone 2 GM IN NS 2 GM/100 ML BAG IVPB SCH (09:06)
--- NOTE | 2017-12-14 11:27 | CP.PCM.PN ---
<Ryan White - Last Filed: 12/14/17 13:47> Subjective - Date & Time of Evaluation Date of Evaluation: 12/14/17 Time of Evaluation: 11:21 - Subjective Subjective: Medicine Progress Note: Patient seen and assessed at bedside. No acute events overnight noted by patient or nursing staff. Patient oriented to person and place only and can respond to simple yes or no questioning. Patient denies fever, chills, headache , chest pain, SOB, abdominal pain, N/V/D/C, urinary symptoms, or any numbness/ tingling of any extremity. Objective - Vital Signs/Intake and Output Vital Signs (last 24 hours): Temp Pulse Resp BP Pulse Ox 97.5 F L 96 H 22 127/83 97 12/14/17 08:30 12/14/17 08:30 12/14/17 08:30 12/14/17 09:03 12/14/17 08:30 Intake and Output: 12/14/17 12/14/17 06:59 18:59 Intake Total 300 Balance 300 - Medications Medications: Current Medications Acetaminophen (Tylenol 325mg Tab) 650 mg PO Q6H PRN PRN Reason: Fever >100.4 F Last Admin: 12/05/17 11:08 Dose: 650 mg Acetylcysteine (Acetylcysteine 20%) 4 ml IH BIDRESP [facility] Last Admin: 12/14/17 07:19 Dose: 4 ml Amlodipine Besylate (Norvasc) 10 mg PO DAILY [facility] Last Admin: 12/14/17 09:03 Dose: 10 mg Aspirin (Ecotrin) 81 mg PO DAILY [facility] Last Admin: 12/14/17 09:04 Dose: 81 mg Atorvastatin Calcium (Lipitor) 20 mg PO DIN [facility] Clotrimazole (Lotrimin Af 1%) 0 ml TOP BID [facility] Last Admin: 12/14/17 09:05 Dose: 1 applic Folic Acid (Folic Acid) 1 mg PO DAILY [facility] Last Admin: 12/14/17 09:03 Dose: 1 mg Heparin Sodium (Porcine) (Heparin) 5,000 units SC Q12 [facility] PRN Reason: Protocol Last Admin: 12/14/17 09:05 Dose: 5,000 units Hydralazine HCl (Apresoline) 10 mg IVP Q6 PRN PRN Reason: For SBP > 150 Last Admin: 12/13/17 08:32 Dose: 10 mg Ceftriaxone Sodium (Rocephin 2 Gm Ivpb) 2 gm in 100 mls @ 100 mls/hr IVPB DAILY [facility] PRN Reason: Protocol Last Admin: 12/14/17 09:06 Dose: 100 mls/hr Ibuprofen (Motrin Tab) 400 mg PO Q6H PRN PRN Reason: Fever >100.4 F Last Admin: 12/10/17 23:04 Dose: 400 mg Insulin Detemir (Levemir) 10 unit SC HS [facility] Last Admin: 12/13/17 21:03 Dose: 10 unit Insulin Human Regular (Humulin R High) 0 units SC ACHS [facility] PRN Reason: Protocol Last Admin: 12/14/17 08:53 Dose: 2 units Levalbuterol HCl (Xopenex) 0.63 mg IH [id number] [facility] Last Admin: 12/14/17 07:18 Dose: 0.63 mg Lisinopril (Zestril) 10 mg PO DAILY [facility] Last Admin: 12/14/17 09:03 Dose: 10 mg Lorazepam (Ativan) 1 mg IVP Q6H PRN; Protocol PRN Reason: Anxiety Last Admin: 12/10/17 03:45 Dose: 1 mg Multivitamins/Minerals (Therapeutic-M Tab) 1 tab PO 0800 [facility] Last Admin: 12/14/17 08:54 Dose: 1 tab Pantoprazole Sodium (Protonix Ec Tab) 40 mg PO ACB [facility] Last Admin: 12/14/17 09:03 Dose: 40 mg Potassium Chloride (K-Dur 20 Meq Er Tab) 40 meq PO BID [facility] Last Admin: 12/14/17 09:04 Dose: 40 meq Thiamine HCl (Vitamin B1 Tab) 100 mg PO DAILY [facility] Last Admin: 12/14/17 09:04 Dose: 100 mg - Labs Labs: 12/14/17 05:00 12/14/17 05:15 PT 12.5 SECONDS (9.4-12.5) 12/09/17 10:00 INR 1.09 (0.93-1.08) H 12/09/17 10:00 APTT 28.3 Seconds (25.1-36.5) 11/30/17 05:30 - Constitutional Appears: Non-toxic, No Acute Distress - Head Exam Head Exam: ATRAUMATIC, NORMOCEPHALIC - Eye Exam Eye Exam: EOMI, PERRL Pupil Exam: NORMAL ACCOMODATION - ENT Exam ENT Exam: Mucous Membranes Moist - Neck Exam Neck Exam: Full ROM. absent: Lymphadenopathy - Respiratory Exam Respiratory Exam: Clear to Ausculation Bilateral, NORMAL BREATHING PATTERN. absent: Accessory Muscle Use, Rales, Rhonchi, Wheezes - Cardiovascular Exam Cardiovascular Exam: REGULAR RHYTHM, RRR, +S1, +S2. absent: Tachycardia - GI/Abdominal Exam GI & Abdominal Exam: Soft, Normal Bowel Sounds. absent: Tenderness - Extremities Exam Extremities Exam: absent: Calf Tenderness, Pedal Edema Additional comments: Two stage two decubitus ulcers with surrounding erythema to right gluteal region noted to be unchanged from previous exam - Neurological Exam Neurological Exam: Awake. absent: Normal Gait, Oriented x3 - Skin Skin Exam: Dry, Warm Assessment and Plan - Assessment and Plan (Free Text) Assessment: 57 year old male with an unknown past medical history who was brought in by ambulance after being found with an AMS and covered in feces in his apartment. His mental status has progressively improved since admission. He is currently on IV Rocephin for coagulase negative staph and strep viridans bacteremia, with repeat blood cultures negative. An echo with bubble study couldn't rule out septic vegetations of the aortic valve. ID is following and recommends continuing antibiotics for 4-6 weeks. Cardiology was consulted for TAHIR evaluation to rule out endocarditis and septic vegetations. An MRI Brain showed acute vs. subacute lacunar infarct in the left parietal region. Neurology is following and patient is on stroke prevention medication. Patient was found to have new colonic mass and multifocal pneumonia on CT chest/abdomen/pelvis and concerns for metastatic disease of the liver on abdominal ultrasound. GI was consulted. Flexible sigmoidoscopy/Colonoscopy and TAHIR to be done when consent can be obtained. Plan: Plan: 1. Toxic-Metabolic Encephalopathy secondary to Strep Viridans/Coag Neg Staph Bacteremia -Repeat blood cultures negative -Continue IV Rocephin (Day 2) for 4-6 weeks -Continue Motrin 400mg Q6 PRN for fever -TAHIR to be done when consent can be obtained -Cardiology, Neurology and ID consulted, all recommendations appreciated -PT/OT recommending JOSIAH upon discharge 2. New Colonic Neoplasm -Flexible sigmoidoscopy/Colonoscopy to be done when consent can be obtained -GI consulted, all recommendations appreciated 3. Multifocal Pneumonia -Continue IV Rocephin (Day 2) -Continue Xopenex [id number] and continued Mucormyst BID 4. Ischemic Stroke -Continue ASA 81mg -Started Lipitor 20mg 5. Transaminitis -Resolved -Hepatitis panel negative -Continue to monitor with daily CMP's 6. History of Alcohol Abuse/Withdrawal -Continue Ativan 1mg IVP Q6H PRN -PO Folate, Thiamine, and MV supplementation -Fall, Seizure and Aspiration precautions 7. Hyperglycemia -SSI-High and Accuchecks ACHS -Levemir 10u HS -Carb Consistent Diet 8. HTN -Continue Lisinopril 10mg, Norvasc 10mg PO daily and hydralazine 10mg IVP Q6 PRN 9. Stage 2 Sacral Decubitus Ulcers with associated Cellulitis -Continue Lotrimin AF 1% ointment -Continue wound care and Q2 repositioning -OOB to chair 10. Hypokalemia -Currently within normal limits -Continue daily supplementation with KCl 40meq BID GI Prophylaxis: Protonix DVT Prophylaxis: SCD's Patient seen and case discussed with attending, Dr. Galo <Sixto Galo - Last Filed: 12/14/17 14:07> Objective - Vital Signs/Intake and Output Vital Signs (last 24 hours): Temp Pulse Resp BP Pulse Ox 97.5 F L 96 H 22 127/83 97 12/14/17 08:30 12/14/17 08:30 12/14/17 08:30 12/14/17 09:03 12/14/17 08:30 Intake and Output: 12/14/17 12/14/17 06:59 18:59 Intake Total 300 Balance 300 - Medications Medications: Current Medications Acetaminophen (Tylenol 325mg Tab) 650 mg PO Q6H PRN PRN Reason: Fever >100.4 F Last Admin: 12/05/17 11:08 Dose: 650 mg Acetylcysteine (Acetylcysteine 20%) 4 ml IH BIDRESP [facility] Last Admin: 12/14/17 07:19 Dose: 4 ml Amlodipine Besylate (Norvasc) 10 mg PO DAILY [facility] Last Admin: 12/14/17 09:03 Dose: 10 mg Aspirin (Ecotrin) 81 mg PO DAILY [facility] Last Admin: 12/14/17 09:04 Dose: 81 mg Atorvastatin Calcium (Lipitor) 20 mg PO DIN [facility] Clotrimazole (Lotrimin Af 1%) 0 ml TOP BID [facility] Last Admin: 12/14/17 09:05 Dose: 1 applic Folic Acid (Folic Acid) 1 mg PO DAILY [facility] Last Admin: 12/14/17 09:03 Dose: 1 mg Heparin Sodium (Porcine) (Heparin) 5,000 units SC Q12 [facility] PRN Reason: Protocol Last Admin: 12/14/17 09:05 Dose: 5,000 units Hydralazine HCl (Apresoline) 10 mg IVP Q6 PRN PRN Reason: For SBP > 150 Last Admin: 12/13/17 08:32 Dose: 10 mg Ceftriaxone Sodium (Rocephin 2 Gm Ivpb) 2 gm in 100 mls @ 100 mls/hr IVPB DAILY [facility] PRN Reason: Protocol Last Admin: 12/14/17 09:06 Dose: 100 mls/hr Ibuprofen (Motrin Tab) 400 mg PO Q6H PRN PRN Reason: Fever >100.4 F Last Admin: 12/10/17 23:04 Dose: 400 mg Insulin Detemir (Levemir) 10 unit SC HS [facility] Last Admin: 12/13/17 21:03 Dose: 10 unit Insulin Human Regular (Humulin R High) 0 units SC ACHS [facility] PRN Reason: Protocol Last Admin: 12/14/17 13:30 Dose: 4 units Levalbuterol HCl (Xopenex) 0.63 mg IH [id number] [facility] Last Admin: 12/14/17 11:51 Dose: Not Given Lisinopril (Zestril) 10 mg PO DAILY [facility] Last Admin: 12/14/17 09:03 Dose: 10 mg Multivitamins/Minerals (Therapeutic-M Tab) 1 tab PO 0800 [facility] Last Admin: 12/14/17 08:54 Dose: 1 tab Pantoprazole Sodium (Protonix Ec Tab) 40 mg PO ACB [facility] Last Admin: 12/14/17 09:03 Dose: 40 mg Potassium Chloride (K-Dur 20 Meq Er Tab) 40 meq PO BID [facility] Last Admin: 12/14/17 09:04 Dose: 40 meq Thiamine HCl (Vitamin B1 Tab) 100 mg PO DAILY [facility] Last Admin: 12/14/17 09:04 Dose: 100 mg - Labs Labs: 12/14/17 05:00 12/14/17 05:15 PT 12.5 SECONDS (9.4-12.5) 12/09/17 10:00 INR 1.09 (0.93-1.08) H 12/09/17 10:00 APTT 28.3 Seconds (25.1-36.5) 11/30/17 05:30 Attending/Attestation - Attestation I have personally seen and examined this patient.: Yes I have fully participated in the care of the patient.: Yes I have reviewed all pertinent clinical information, including history, physical exam and plan: Yes Notes (Text): 12/14/17 14:01 57 year old male with no known past medical history who presented with altered mental status, covered in feces in his apartment. He was admitted for right hip cellulitis, which improved. He was found to have Streptococcus viridian in blood cultures and echocardiogram could not rule out septic vegetations of the aortic valve. Family is still not available to give consent for TAHIR. Continue with iv antibiotics as per ID; will need 4-6 weeks total. Repeat cultures have been negative. CT chest also showed multifocal pneumonia for which he received iv antibiotics. He was also treated for flu. CT abd/pelvis showed new colonic mass and possible metastatic disease to the liver. GI planned for sigmoidoscopy however again family is not available to give consent for procedure. MRI showed acute vs subacute infarct. PT is following. He is on aspirin. Will resume statin for now as his LFTs as improved. Sixto Galo MD Hospitalist.
[2017-12-14] MEDS: Insulin Detemir 100 units/ml Vial (Levemir) SC SCH (22:01)
[2017-12-15] MEDS: Levalbuterol 0.63 MG/3 ML Inhal Soln UD IH SCH ×6 (00:30→19:56)
[2017-12-15 06:37] LABS: BASO # 0.07 K/mm3 (0.0-2.0); BASO % 0.8 % (0.0-3.0); EOS # 0.1 (0.0-0.7); EOS % 1.2 % (1.5-5.0); GRAN # 4.04 (1.4-6.5); GRAN % 47.3 % (50.0-68.0); HEMOGLOBIN 13.9 g/dL (14.0-18.0); LYMPH # 3.6 (1.2-3.4); LYMPH % 41.6 % (22.0-35.0); MEAN CORPUSCULAR HEMOGLOBIN 28.1 pg (25.0-35.0); MEAN CORPUSCULAR HGB CONC 32.7 g/dl (31.0-37.0); MEAN PLATELET VOLUME 8.9 fl (7.0-11.0); MONO # 0.8 (0.1-0.6); MONO % 9.1 % (1.0-6.0); RBC 4.94 10^6/uL (3.5-6.1); RED CELL DISTRIBUTION WIDTH 16.5 % (11.5-14.5); WHITE BLOOD COUNT 8.5 10^3/ul (4.5-11.0)
[2017-12-15 07:24] LABS: ALB/GLOB RATIO 0.9 (1.1-1.8); ALBUMIN 3.5 g/dL (3.0-4.8); ALT/SGPT 42 U/L (7-56); AST/SGOT 43 U/L (17-59); BLOOD UREA NITROGEN 14 mg/dL (7-21); CALCIUM 10.1 mg/dL (8.4-10.5); GFR NON-AFRICAN AMERICAN > 60
[2017-12-15] MEDS: Insulin Reg-HIGH-Coverage SC SCH ×4 (08:00→21:42)
[2017-12-15] MEDS: Acetylcysteine 20% Inhal Soln (4ml) IH SCH ×2 (08:04→19:56)
[2017-12-15] MEDS: cefTRIAXone 2 GM IN NS 2 GM/100 ML BAG IVPB SCH (10:20)
[2017-12-15] MEDS: Multivitamin With Minerals Tab PO SCH (10:21)
[2017-12-15] MEDS: Potassium Chloride 20 mEq ER Tab PO SCH ×2 (10:22→16:59)
[2017-12-15] MEDS: Clotrimazole 1% Top Soln(10 ml) TOP SCH ×2 (10:23→16:59)
[2017-12-15] MEDS: Pantoprazole 40 mg EC Tab PO SCH (10:23)
--- NOTE | 2017-12-15 13:58 | CP.PCM.PN ---
<Ryan White - Last Filed: 12/15/17 13:54> Subjective - Date & Time of Evaluation Date of Evaluation: 12/15/17 Time of Evaluation: 13:55 - Subjective Subjective: Medicine Progress Note: Patient seen and assessed at bedside. No acute events overnight noted by patient or nursing staff. Patient continues to be oriented to person and place only and can respond to simple yes or no questioning. Patient denies fever, chills, chest pain, SOB, abdominal pain, or N/V/D/C. Objective - Vital Signs/Intake and Output Vital Signs (last 24 hours): Temp Pulse Resp BP Pulse Ox 98.2 F 98 H 17 165/72 H 95 12/15/17 06:00 12/15/17 06:00 12/15/17 06:00 12/15/17 10:21 12/15/17 06:00 Intake and Output: 12/15/17 12/15/17 06:59 18:59 Intake Total 540 240 Balance 540 240 - Medications Medications: Current Medications Acetylcysteine (Acetylcysteine 20%) 4 ml IH BIDRESP [facility] Last Admin: 12/15/17 08:04 Dose: Not Given Amlodipine Besylate (Norvasc) 10 mg PO DAILY [facility] Last Admin: 12/15/17 10:21 Dose: 10 mg Aspirin (Ecotrin) 81 mg PO DAILY [facility] Last Admin: 12/15/17 10:22 Dose: 81 mg Atorvastatin Calcium (Lipitor) 20 mg PO DIN [facility] Last Admin: 12/14/17 18:03 Dose: 20 mg Clotrimazole (Lotrimin Af 1%) 0 ml TOP BID [facility] Last Admin: 12/15/17 10:23 Dose: 1 applic Folic Acid (Folic Acid) 1 mg PO DAILY [facility] Last Admin: 12/15/17 10:23 Dose: 1 mg Heparin Sodium (Porcine) (Heparin) 5,000 units SC Q12 [facility] PRN Reason: Protocol Last Admin: 12/14/17 21:59 Dose: 5,000 units Hydralazine HCl (Apresoline) 10 mg IVP Q6 PRN PRN Reason: For SBP > 150 Last Admin: 12/13/17 08:32 Dose: 10 mg Ceftriaxone Sodium (Rocephin 2 Gm Ivpb) 2 gm in 100 mls @ 100 mls/hr IVPB DAILY [facility] PRN Reason: Protocol Last Admin: 12/15/17 10:20 Dose: 100 mls/hr Ibuprofen (Motrin Tab) 400 mg PO Q6H PRN PRN Reason: Fever >100.4 F Last Admin: 12/10/17 23:04 Dose: 400 mg Insulin Detemir (Levemir) 10 unit SC HS [facility] Last Admin: 12/14/17 22:01 Dose: 10 unit Insulin Human Regular (Humulin R High) 0 units SC ACHS [facility] PRN Reason: Protocol Last Admin: 12/15/17 12:35 Dose: 4 units Levalbuterol HCl (Xopenex) 0.63 mg IH [id number] [facility] Last Admin: 12/15/17 12:06 Dose: Not Given Lisinopril (Zestril) 10 mg PO DAILY [facility] Last Admin: 12/15/17 10:22 Dose: 10 mg Multivitamins/Minerals (Therapeutic-M Tab) 1 tab PO 0800 [facility] Last Admin: 12/15/17 10:21 Dose: 1 tab Pantoprazole Sodium (Protonix Ec Tab) 40 mg PO ACB [facility] Last Admin: 12/15/17 10:23 Dose: 40 mg Potassium Chloride (K-Dur 20 Meq Er Tab) 40 meq PO BID [facility] Last Admin: 12/15/17 10:22 Dose: 40 meq Thiamine HCl (Vitamin B1 Tab) 100 mg PO DAILY [facility] Last Admin: 12/15/17 10:22 Dose: 100 mg - Labs Labs: 12/15/17 05:45 12/15/17 05:45 PT 12.5 SECONDS (9.4-12.5) 12/09/17 10:00 INR 1.09 (0.93-1.08) H 12/09/17 10:00 APTT 28.3 Seconds (25.1-36.5) 11/30/17 05:30 - Constitutional Appears: Non-toxic, No Acute Distress - Head Exam Head Exam: ATRAUMATIC, NORMOCEPHALIC - Eye Exam Eye Exam: EOMI, PERRL Pupil Exam: NORMAL ACCOMODATION - ENT Exam ENT Exam: Mucous Membranes Moist - Neck Exam Neck Exam: Full ROM. absent: Lymphadenopathy - Respiratory Exam Respiratory Exam: Clear to Ausculation Bilateral, NORMAL BREATHING PATTERN. absent: Rales, Rhonchi, Wheezes - Cardiovascular Exam Cardiovascular Exam: REGULAR RHYTHM, +S1, +S2 - GI/Abdominal Exam GI & Abdominal Exam: Soft, Normal Bowel Sounds. absent: Guarding, Tenderness - Extremities Exam Extremities Exam: Normal Capillary Refill. absent: Calf Tenderness, Joint Swelling, Pedal Edema - Neurological Exam Neurological Exam: Alert, Awake. absent: Oriented x3 - Skin Skin Exam: Dry, Warm Additional comments: Two stage 2 decubitus ulcers with surrounding erythema that has clinically improved since admission Assessment and Plan - Assessment and Plan (Free Text) Assessment: 57 year old male with an unknown past medical history who was brought in by ambulance after being found with an AMS and covered in feces in his apartment. His mental status has progressively improved since admission. He is currently on IV Rocephin for coagulase negative staph and strep viridans bacteremia, with repeat blood cultures negative. An echo with bubble study couldn't rule out septic vegetations of the aortic valve. ID is following and recommends continuing antibiotics for 4-6 weeks. Cardiology was consulted for TAHIR evaluation to rule out endocarditis and septic vegetations. An MRI Brain showed acute vs. subacute lacunar infarct in the left parietal region. Neurology is following and patient is on stroke prevention medication. Patient was found to have new colonic mass and multifocal pneumonia on CT chest/abdomen/pelvis and concerns for metastatic disease of the liver on abdominal ultrasound. GI was consulted. Flexible sigmoidoscopy/Colonoscopy and TAHIR to be done when consent can be obtained. Plan: 1. Toxic-Metabolic Encephalopathy secondary to Strep Viridans/Coag Neg Staph Bacteremia -Repeat blood cultures negative -Continue IV Rocephin (Day 3) for 4-6 weeks -Continue Motrin 400mg Q6 PRN for fever -TAHIR to be done when consent can be obtained -Cardiology, Neurology and ID consulted, all recommendations appreciated -PT/OT recommending JOSIAH upon discharge 2. Colonic Neoplasm -Flexible sigmoidoscopy/Colonoscopy to be done when consent can be obtained -GI consulted, all recommendations appreciated 3. Multifocal Pneumonia -Continue IV Rocephin (Day 3) -Continue Xopenex [id number] and continued Mucormyst BID 4. Ischemic Stroke -Continue ASA 81mg and Lipitor 20mg 5. History of Alcohol Abuse/Withdrawal -PO Folate, Thiamine, and MV supplementation -Fall, Seizure and Aspiration precautions 6. DM2 -SSI-High and Accuchecks ACHS -Levemir 10u HS -Carb Consistent Diet 7. HTN -Continue Lisinopril 10mg, Norvasc 10mg PO daily and hydralazine 10mg IVP Q6 PRN 8. Stage 2 Sacral Decubitus Ulcers with associated Cellulitis -Continue Lotrimin AF 1% ointment -Continue wound care and Q2 repositioning -OOB to chair 9. Hypokalemia -Currently within normal limits -Continue daily supplementation with KCl 40meq BID GI Prophylaxis: Protonix DVT Prophylaxis: Heparin and SCD's Patient seen and case discussed with attending, Dr. Galo. <Sixto Galo - Last Filed: 12/15/17 14:22> Objective - Vital Signs/Intake and Output Vital Signs (last 24 hours): Temp Pulse Resp BP Pulse Ox 98.2 F 98 H 17 165/72 H 95 12/15/17 06:00 12/15/17 06:00 12/15/17 06:00 12/15/17 10:21 12/15/17 06:00 Intake and Output: 12/15/17 12/15/17 06:59 18:59 Intake Total 540 240 Balance 540 240 - Medications Medications: Current Medications Acetylcysteine (Acetylcysteine 20%) 4 ml IH BIDRESP [facility] Last Admin: 12/15/17 08:04 Dose: Not Given Amlodipine Besylate (Norvasc) 10 mg PO DAILY [facility] Last Admin: 12/15/17 10:21 Dose: 10 mg Aspirin (Ecotrin) 81 mg PO DAILY [facility] Last Admin: 12/15/17 10:22 Dose: 81 mg Atorvastatin Calcium (Lipitor) 20 mg PO DIN [facility] Last Admin: 12/14/17 18:03 Dose: 20 mg Clotrimazole (Lotrimin Af 1%) 0 ml TOP BID [facility] Last Admin: 12/15/17 10:23 Dose: 1 applic Folic Acid (Folic Acid) 1 mg PO DAILY [facility] Last Admin: 12/15/17 10:23 Dose: 1 mg Heparin Sodium (Porcine) (Heparin) 5,000 units SC Q12 [facility] PRN Reason: Protocol Last Admin: 12/14/17 21:59 Dose: 5,000 units Hydralazine HCl (Apresoline) 10 mg IVP Q6 PRN PRN Reason: For SBP > 150 Last Admin: 12/13/17 08:32 Dose: 10 mg Ceftriaxone Sodium (Rocephin 2 Gm Ivpb) 2 gm in 100 mls @ 100 mls/hr IVPB DAILY [facility] PRN Reason: Protocol Last Admin: 12/15/17 10:20 Dose: 100 mls/hr Ibuprofen (Motrin Tab) 400 mg PO Q6H PRN PRN Reason: Fever >100.4 F Last Admin: 12/10/17 23:04 Dose: 400 mg Insulin Detemir (Levemir) 10 unit SC HS [facility] Last Admin: 12/14/17 22:01 Dose: 10 unit Insulin Human Regular (Humulin R High) 0 units SC ACHS [facility] PRN Reason: Protocol Last Admin: 12/15/17 12:35 Dose: 4 units Levalbuterol HCl (Xopenex) 0.63 mg IH [id number] [facility] Last Admin: 12/15/17 12:06 Dose: Not Given Lisinopril (Zestril) 10 mg PO DAILY [facility] Last Admin: 12/15/17 10:22 Dose: 10 mg Multivitamins/Minerals (Therapeutic-M Tab) 1 tab PO 0800 [facility] Last Admin: 12/15/17 10:21 Dose: 1 tab Pantoprazole Sodium (Protonix Ec Tab) 40 mg PO ACB [facility] Last Admin: 12/15/17 10:23 Dose: 40 mg Potassium Chloride (K-Dur 20 Meq Er Tab) 40 meq PO BID [facility] Last Admin: 12/15/17 10:22 Dose: 40 meq Thiamine HCl (Vitamin B1 Tab) 100 mg PO DAILY [facility] Last Admin: 12/15/17 10:22 Dose: 100 mg - Labs Labs: 12/15/17 05:45 12/15/17 05:45 PT 12.5 SECONDS (9.4-12.5) 12/09/17 10:00 INR 1.09 (0.93-1.08) H 12/09/17 10:00 APTT 28.3 Seconds (25.1-36.5) 11/30/17 05:30 Attending/Attestation - Attestation I have personally seen and examined this patient.: Yes I have fully participated in the care of the patient.: Yes I have reviewed all pertinent clinical information, including history, physical exam and plan: Yes Notes (Text): 12/15/17 14:21 57 year old male with no known past medical history who presented with altered mental status, covered in feces in his apartment. He was admitted for right hip cellulitis, which improved. He was also found to have Streptococcus viridian in blood cultures and echocardiogram could not rule out septic vegetations of the aortic valve. Family is still not available to give consent for TAHIR. Continue with iv antibiotics as per ID; will need 4-6 weeks total. Repeat cultures have been negative. CT chest also showed multifocal pneumonia for which he received iv antibiotics. He was also treated with tamiflu for flu. CT abd/pelvis showed new colonic mass and possible metastatic disease to the liver. GI planned for sigmoidoscopy however again family is not available to give consent for procedure. relief worker note was reviewed. MRI showed acute vs subacute infarct. PT is following. He is on aspirin and statin. Monitor LFTs while on statin. Sixto Galo MD Hospitalist.
[2017-12-15] MEDS: Insulin Detemir 100 units/ml Vial (Levemir) SC SCH (21:42)
[2017-12-16] MEDS: Levalbuterol 0.63 MG/3 ML Inhal Soln UD IH SCH ×8 (00:25→23:32)
[2017-12-16 06:48] LABS: BASO # 0.05 K/mm3 (0.0-2.0); BASO % 0.5 % (0.0-3.0); EOS # 0.1 (0.0-0.7); GRAN # 4.91 (1.4-6.5); GRAN % 52.7 % (50.0-68.0); HEMOGLOBIN 13.6 g/dL (14.0-18.0); LYMPH # 3.6 (1.2-3.4); LYMPH % 38.4 % (22.0-35.0); MEAN CELL VOLUME 85.5 fl (80.0-105.0); MEAN CORPUSCULAR HEMOGLOBIN 28.5 pg (25.0-35.0); MEAN CORPUSCULAR HGB CONC 33.3 g/dl (31.0-37.0); MEAN PLATELET VOLUME 8.9 fl (7.0-11.0); MONO # 0.7 (0.1-0.6); MONO % 7.4 % (1.0-6.0); RBC 4.77 10^6/uL (3.5-6.1); RED CELL DISTRIBUTION WIDTH 16.4 % (11.5-14.5); WHITE BLOOD COUNT 9.3 10^3/ul (4.5-11.0)
[2017-12-16 07:08] LABS: ALBUMIN 3.5 g/dL (3.0-4.8); ALT/SGPT 41 U/L (7-56); AST/SGOT 53 U/L (17-59); BLOOD UREA NITROGEN 16 mg/dL (7-21); CALCIUM 10.2 mg/dL (8.4-10.5); GFR NON-AFRICAN AMERICAN > 60
[2017-12-16] MEDS: Acetylcysteine 20% Inhal Soln (4ml) IH SCH ×2 (07:24→20:38)
[2017-12-16] MEDS: Insulin Reg-HIGH-Coverage SC SCH ×4 (08:37→22:28)
[2017-12-16] MEDS: Pantoprazole 40 mg EC Tab PO SCH (08:38)
[2017-12-16] MEDS: Multivitamin With Minerals Tab PO SCH (08:38)
[2017-12-16] MEDS: cefTRIAXone 2 GM IN NS 2 GM/100 ML BAG IVPB SCH (09:22)
[2017-12-16] MEDS: Potassium Chloride 20 mEq ER Tab PO SCH ×2 (09:23→17:03)
[2017-12-16] MEDS: Clotrimazole 1% Top Soln(10 ml) TOP SCH ×2 (09:24→17:04)
--- NOTE | 2017-12-16 11:12 | CP.PCM.PN ---
Subjective - Date & Time of Evaluation Date of Evaluation: 12/16/17 Time of Evaluation: 09:35 - Subjective Subjective: Comfortable, no fevers, not in distress. Objective - Vital Signs/Intake and Output Vital Signs (last 24 hours): Temp Pulse Resp BP Pulse Ox 98.2 F 95 H 18 145/70 97 12/16/17 08:32 12/16/17 08:32 12/16/17 08:32 12/16/17 09:23 12/16/17 08:32 Intake and Output: 12/16/17 12/16/17 06:59 18:59 Intake Total 540 Balance 540 - Medications Medications: Current Medications Acetylcysteine (Acetylcysteine 20%) 4 ml IH BIDRESP [facility] Last Admin: 12/16/17 07:24 Dose: Not Given Amlodipine Besylate (Norvasc) 10 mg PO DAILY [facility] Last Admin: 12/16/17 09:23 Dose: 10 mg Aspirin (Ecotrin) 81 mg PO DAILY [facility] Last Admin: 12/16/17 09:23 Dose: 81 mg Atorvastatin Calcium (Lipitor) 20 mg PO DIN [facility] Last Admin: 12/15/17 16:58 Dose: 20 mg Clotrimazole (Lotrimin Af 1%) 0 ml TOP BID [facility] Last Admin: 12/16/17 09:24 Dose: 1 applic Folic Acid (Folic Acid) 1 mg PO DAILY [facility] Last Admin: 12/16/17 09:23 Dose: 1 mg Heparin Sodium (Porcine) (Heparin) 5,000 units SC Q12 [facility] PRN Reason: Protocol Last Admin: 12/16/17 09:22 Dose: 5,000 units Hydralazine HCl (Apresoline) 10 mg IVP Q6 PRN PRN Reason: For SBP > 150 Last Admin: 12/13/17 08:32 Dose: 10 mg Ceftriaxone Sodium (Rocephin 2 Gm Ivpb) 2 gm in 100 mls @ 100 mls/hr IVPB DAILY [facility] PRN Reason: Protocol Last Admin: 12/16/17 09:22 Dose: 100 mls/hr Ibuprofen (Motrin Tab) 400 mg PO Q6H PRN PRN Reason: Fever >100.4 F Last Admin: 12/10/17 23:04 Dose: 400 mg Insulin Detemir (Levemir) 10 unit SC HS [facility] Last Admin: 12/15/17 21:42 Dose: 10 unit Insulin Human Regular (Humulin R High) 0 units SC ACHS [facility] PRN Reason: Protocol Last Admin: 12/16/17 08:37 Dose: 1 units Levalbuterol HCl (Xopenex) 0.63 mg IH [id number] [facility] Last Admin: 12/16/17 07:24 Dose: Not Given Lisinopril (Zestril) 10 mg PO DAILY [facility] Last Admin: 12/16/17 09:23 Dose: 10 mg Multivitamins/Minerals (Therapeutic-M Tab) 1 tab PO 0800 [facility] Last Admin: 12/16/17 08:38 Dose: 1 tab Pantoprazole Sodium (Protonix Ec Tab) 40 mg PO ACB [facility] Last Admin: 12/16/17 08:38 Dose: 40 mg Potassium Chloride (K-Dur 20 Meq Er Tab) 40 meq PO BID [facility] Last Admin: 12/16/17 09:23 Dose: 40 meq Thiamine HCl (Vitamin B1 Tab) 100 mg PO DAILY [facility] Last Admin: 12/16/17 09:23 Dose: 100 mg - Labs Labs: 12/16/17 05:30 12/16/17 05:30 PT 12.5 SECONDS (9.4-12.5) 12/09/17 10:00 INR 1.09 (0.93-1.08) H 12/09/17 10:00 APTT 28.3 Seconds (25.1-36.5) 11/30/17 05:30 - Constitutional Appears: Chronically Ill - Head Exam Head Exam: NORMAL INSPECTION - Neck Exam Neck Exam: absent: Meningismus - Respiratory Exam Respiratory Exam: Decreased Breath Sounds - Cardiovascular Exam Cardiovascular Exam: +S1, +S2 - GI/Abdominal Exam GI & Abdominal Exam: Soft. absent: Tenderness Assessment and Plan - Assessment and Plan (Free Text) Plan: Assessment sepsis due to multifocal HCAP on top of Influenza A infection in this patient with strep viridans and CoNS bacteremia from right gluteal and back cellulitis R/O Sammie infection of sacral area as well Plan S/P 7 days of Vancomycin and Merrem day 7; S/P Tamiflu; will now switch to Rocephin for the Strep viridans bacteremia (would continue 4-6 weeks of Rocephin with weekly ESR, CRP, CBC, CMP) - unable to do TAHIR since patient unable to give consent and patient does not have family to give consent - discussed with Dr. Schumacher previously continue topical antifungal over sacral area as well will continue to monitor clinically
--- NOTE | 2017-12-16 14:52 | CP.PCM.PN ---
<Ryan White - Last Filed: 12/16/17 14:47> Subjective - Date & Time of Evaluation Date of Evaluation: 12/16/17 Time of Evaluation: 14:47 - Subjective Subjective: Medicine Progress Note: Patient seen and assessed at bedside. No acute events overnight. Attempts to contact family members are ongoing. Patient oriented to person and place only and can respond to simple yes or no questioning. Patient denies fever, chills, chest pain, SOB, abdominal pain, N/V/D/C or burning with urination. Objective - Vital Signs/Intake and Output Vital Signs (last 24 hours): Temp Pulse Resp BP Pulse Ox 98.2 F 95 H 18 145/70 97 12/16/17 08:32 12/16/17 08:32 12/16/17 08:32 12/16/17 09:23 12/16/17 08:32 Intake and Output: 12/16/17 12/16/17 06:59 18:59 Intake Total 540 600 Balance 540 600 - Medications Medications: Current Medications Acetylcysteine (Acetylcysteine 20%) 4 ml IH BIDRESP [facility] [place] Last Admin: 12/16/17 07:24 Dose: Not Given Amlodipine Besylate (Norvasc) 10 mg PO DAILY [facility] [place] Last Admin: 12/16/17 09:23 Dose: 10 mg Aspirin (Ecotrin) 81 mg PO DAILY [facility] [place] Last Admin: 12/16/17 09:23 Dose: 81 mg Atorvastatin Calcium (Lipitor) 20 mg PO DIN [facility] [place] Last Admin: 12/15/17 16:58 Dose: 20 mg Clotrimazole (Lotrimin Af 1%) 0 ml TOP BID [facility] [place] Last Admin: 12/16/17 09:24 Dose: 1 applic Folic Acid (Folic Acid) 1 mg PO DAILY [facility] [place] Last Admin: 12/16/17 09:23 Dose: 1 mg Heparin Sodium (Porcine) (Heparin) 5,000 units SC Q12 [facility] PRN Reason: Protocol Last Admin: 12/16/17 09:22 Dose: 5,000 units Hydralazine HCl (Apresoline) 10 mg IVP Q6 PRN PRN Reason: For SBP > 150 Last Admin: 12/13/17 08:32 Dose: 10 mg Ceftriaxone Sodium (Rocephin 2 Gm Ivpb) 2 gm in 100 mls @ 100 mls/hr IVPB DAILY [facility] [place] PRN Reason: Protocol Last Admin: 12/16/17 09:22 Dose: 100 mls/hr Ibuprofen (Motrin Tab) 400 mg PO Q6H PRN PRN Reason: Fever >100.4 F Last Admin: 12/10/17 23:04 Dose: 400 mg Insulin Detemir (Levemir) 10 unit SC HS [facility] [place] Last Admin: 12/15/17 21:42 Dose: 10 unit Insulin Human Regular (Humulin R High) 0 units SC ACHS [facility] PRN Reason: Protocol Last Admin: 12/16/17 11:47 Dose: 1 units Levalbuterol HCl (Xopenex) 0.63 mg IH [id number] [facility] [place] Last Admin: 12/16/17 11:29 Dose: Not Given Lisinopril (Zestril) 10 mg PO DAILY [facility] [place] Last Admin: 12/16/17 09:23 Dose: 10 mg Multivitamins/Minerals (Therapeutic-M Tab) 1 tab PO 0800 [facility] [place] Last Admin: 12/16/17 08:38 Dose: 1 tab Pantoprazole Sodium (Protonix Ec Tab) 40 mg PO ACB [facility] [place] Last Admin: 12/16/17 08:38 Dose: 40 mg Potassium Chloride (K-Dur 20 Meq Er Tab) 40 meq PO BID [facility] [place] Last Admin: 12/16/17 09:23 Dose: 40 meq Thiamine HCl (Vitamin B1 Tab) 100 mg PO DAILY [facility] [place] Last Admin: 12/16/17 09:23 Dose: 100 mg - Labs Labs: 12/16/17 05:30 12/16/17 05:30 PT 12.5 SECONDS (9.4-12.5) 12/09/17 10:00 INR 1.09 (0.93-1.08) H 12/09/17 10:00 APTT 28.3 Seconds (25.1-36.5) 11/30/17 05:30 - Constitutional Appears: Non-toxic, No Acute Distress - Head Exam Head Exam: ATRAUMATIC, NORMOCEPHALIC - Eye Exam Eye Exam: EOMI, PERRL Pupil Exam: NORMAL ACCOMODATION - ENT Exam ENT Exam: Mucous Membranes Moist - Neck Exam Neck Exam: Full ROM. absent: Lymphadenopathy - Respiratory Exam Respiratory Exam: Clear to Ausculation Bilateral, NORMAL BREATHING PATTERN. absent: Rales, Rhonchi, Wheezes, Respiratory Distress - Cardiovascular Exam Cardiovascular Exam: REGULAR RHYTHM, RRR, +S1, +S2. absent: Tachycardia - GI/Abdominal Exam GI & Abdominal Exam: Soft, Normal Bowel Sounds. absent: Tenderness - Extremities Exam Extremities Exam: Normal Capillary Refill. absent: Calf Tenderness, Joint Swelling, Pedal Edema, Tenderness Additional comments: RLE wound dressing clean, dry and intact - Back Exam Back Exam: absent: CVA tenderness (L), CVA tenderness (R), vertebral tenderness - Neurological Exam Neurological Exam: Alert, Awake. absent: Oriented x3 - Skin Skin Exam: Dry, Warm Assessment and Plan - Assessment and Plan (Free Text) Assessment: 57 year old male with an unknown past medical history who was brought in by ambulance after being found with an AMS and covered in feces in his apartment. His mental status has progressively improved since admission. He is currently on IV Rocephin for coagulase negative staph and strep viridans bacteremia, with repeat blood cultures negative. An echo with bubble study couldn't rule out septic vegetations of the aortic valve. ID is following and recommends continuing antibiotics for 4-6 weeks. Cardiology was consulted for TAHIR evaluation to rule out endocarditis and septic vegetations. An MRI Brain showed acute vs. subacute lacunar infarct in the left parietal region. Neurology is following and patient is on stroke prevention medication. Patient was found to have new colonic mass and multifocal pneumonia on CT chest/abdomen/pelvis and concerns for metastatic disease of the liver on abdominal ultrasound. GI was consulted. Flexible sigmoidoscopy/Colonoscopy and TAHIR to be done when consent can be obtained. Plan: 1. Toxic-Metabolic Encephalopathy secondary to Strep Viridans/Coag Neg Staph Bacteremia -Repeat blood cultures negative -Continue IV Rocephin (Day 4) for 4-6 weeks -Continue Motrin 400mg Q6 PRN for fever -TAHIR to be done when consent can be obtained -Cardiology, Neurology and ID consulted, all recommendations appreciated -PT/OT recommending JOSIAH upon discharge 2. Colonic Neoplasm -Flexible sigmoidoscopy/Colonoscopy to be done when consent can be obtained -GI consulted, all recommendations appreciated 3. Multifocal Pneumonia -Continue IV Rocephin (Day 4) -Continue Xopenex [id number] and continued Mucormyst BID 4. Ischemic Stroke -Continue ASA 81mg and Lipitor 20mg 5. History of Alcohol Abuse/Withdrawal -PO Folate, Thiamine, and MV supplementation -Fall, Seizure and Aspiration precautions 6. DM2 -SSI-High and Accuchecks ACHS -Levemir 10u HS -Carb Consistent Diet 7. HTN -Continue Lisinopril 10mg, Norvasc 10mg PO daily and hydralazine 10mg IVP Q6 PRN 8. Stage 2 Sacral Decubitus Ulcers with associated Cellulitis -Continue Lotrimin AF 1% ointment -Continue wound care and Q2 repositioning -OOB to chair 9. Hypokalemia -Currently within normal limits -Continue daily supplementation with KCl 40meq BID GI Prophylaxis: Protonix DVT Prophylaxis: Heparin and SCD's Patient seen and case discussed with attending, Dr. Galo. <Sixto Galo - Last Filed: 12/16/17 16:48> Objective - Vital Signs/Intake and Output Vital Signs (last 24 hours): Temp Pulse Resp BP Pulse Ox 97.8 F 101 H 20 132/86 95 12/16/17 16:00 12/16/17 16:00 12/16/17 16:00 12/16/17 16:00 12/16/17 16:00 Intake and Output: 12/16/17 12/16/17 06:59 18:59 Intake Total 540 600 Balance 540 600 - Medications Medications: Current Medications Acetylcysteine (Acetylcysteine 20%) 4 ml IH BIDRESP [facility] Last Admin: 12/16/17 07:24 Dose: Not Given Amlodipine Besylate (Norvasc) 10 mg PO DAILY [facility] [place] Last Admin: 12/16/17 09:23 Dose: 10 mg Aspirin (Ecotrin) 81 mg PO DAILY [facility] [place] Last Admin: 12/16/17 09:23 Dose: 81 mg Atorvastatin Calcium (Lipitor) 20 mg PO DIN [facility] [place] Last Admin: 12/15/17 16:58 Dose: 20 mg Clotrimazole (Lotrimin Af 1%) 0 ml TOP BID [facility] [place] Last Admin: 12/16/17 09:24 Dose: 1 applic Folic Acid (Folic Acid) 1 mg PO DAILY [facility] [place] Last Admin: 12/16/17 09:23 Dose: 1 mg Heparin Sodium (Porcine) (Heparin) 5,000 units SC Q12 [facility] PRN Reason: Protocol Last Admin: 12/16/17 09:22 Dose: 5,000 units Hydralazine HCl (Apresoline) 10 mg IVP Q6 PRN PRN Reason: For SBP > 150 Last Admin: 12/13/17 08:32 Dose: 10 mg Ceftriaxone Sodium (Rocephin 2 Gm Ivpb) 2 gm in 100 mls @ 100 mls/hr IVPB DAILY [facility] PRN Reason: Protocol Last Admin: 12/16/17 09:22 Dose: 100 mls/hr Ibuprofen (Motrin Tab) 400 mg PO Q6H PRN PRN Reason: Fever >100.4 F Last Admin: 12/10/17 23:04 Dose: 400 mg Insulin Detemir (Levemir) 10 unit SC HS [facility] [place] Last Admin: 12/15/17 21:42 Dose: 10 unit Insulin Human Regular (Humulin R High) 0 units SC ACHS [facility] [place] PRN Reason: Protocol Last Admin: 12/16/17 11:47 Dose: 2 units Levalbuterol HCl (Xopenex) 0.63 mg IH [id number] [facility] [place] Last Admin: 12/16/17 16:37 Dose: Not Given Lisinopril (Zestril) 10 mg PO DAILY [facility] [place] Last Admin: 12/16/17 09:23 Dose: 10 mg Multivitamins/Minerals (Therapeutic-M Tab) 1 tab PO 0800 [facility] [place] Last Admin: 12/16/17 08:38 Dose: 1 tab Pantoprazole Sodium (Protonix Ec Tab) 40 mg PO ACB [facility] [place] Last Admin: 12/16/17 08:38 Dose: 40 mg Potassium Chloride (K-Dur 20 Meq Er Tab) 40 meq PO BID [facility] [place] Last Admin: 12/16/17 09:23 Dose: 40 meq Thiamine HCl (Vitamin B1 Tab) 100 mg PO DAILY [facility] [place] Last Admin: 12/16/17 09:23 Dose: 100 mg - Labs Labs: 12/16/17 05:30 12/16/17 05:30 PT 12.5 SECONDS (9.4-12.5) 12/09/17 10:00 INR 1.09 (0.93-1.08) H 12/09/17 10:00 APTT 28.3 Seconds (25.1-36.5) 11/30/17 05:30 Attending/Attestation - Attestation I have personally seen and examined this patient.: Yes I have fully participated in the care of the patient.: Yes I have reviewed all pertinent clinical information, including history, physical exam and plan: Yes Notes (Text): 12/16/17 16:46 57 year old male with no known past medical history who presented with altered mental status, covered in feces in his apartment. He was admitted for right hip cellulitis, which has improved. He was also found to have Streptococcus viridian in blood cultures for which he is on iv antibiotics. Repeat cultures have been negative. Echocardiogram was done which could not rule out septic vegetations of the aortic valve. Family is still not available to give consent for TAHIR. Continue with iv antibiotics as per ID; will need 4-[address] chest also showed multifocal pneumonia for which he received iv antibiotics. He was also treated with tamiflu for flu. CT abd/pelvis showed new colonic mass and possible metastatic disease to the liver. GI planned for sigmoidoscopy however again family is not available to give consent for procedure. boil off worker notes were reviewed. MRI showed acute vs subacute infarct. PT is following. He is currently out of bed to chair today. He is on aspirin and statin. Monitor LFTs while on statin. Sixto Galo MD Hospitalist.
[2017-12-16] MEDS: Insulin Detemir 100 units/ml Vial (Levemir) SC SCH (22:28)
[2017-12-17] MEDS: Levalbuterol 0.63 MG/3 ML Inhal Soln UD IH SCH ×5 (04:22→19:47)
[2017-12-17 06:46] LABS: BASO # 0.04 K/mm3 (0.0-2.0); BASO % 0.4 % (0.0-3.0); EOS # 0.1 (0.0-0.7); EOS % 1.1 % (1.5-5.0); GRAN # 4.81 (1.4-6.5); GRAN % 53.6 % (50.0-68.0); HEMOGLOBIN 13.3 g/dL (14.0-18.0); LYMPH # 3.3 (1.2-3.4); MEAN CELL VOLUME 85.4 fl (80.0-105.0); MEAN CORPUSCULAR HEMOGLOBIN 27.8 pg (25.0-35.0); MEAN CORPUSCULAR HGB CONC 32.5 g/dl (31.0-37.0); MEAN PLATELET VOLUME 8.9 fl (7.0-11.0); MONO # 0.7 (0.1-0.6); MONO % 7.9 % (1.0-6.0); RBC 4.79 10^6/uL (3.5-6.1); RED CELL DISTRIBUTION WIDTH 16.4 % (11.5-14.5)
[2017-12-17 06:55] LABS: ALBUMIN 3.5 g/dL (3.0-4.8); ALT/SGPT 39 U/L (7-56); AST/SGOT 45 U/L (17-59); BLOOD UREA NITROGEN 15 mg/dL (7-21); GFR NON-AFRICAN AMERICAN > 60
[2017-12-17] MEDS: Acetylcysteine 20% Inhal Soln (4ml) IH SCH ×2 (07:19→19:46)
[2017-12-17] MEDS: Insulin Reg-HIGH-Coverage SC SCH ×4 (09:48→21:37)
[2017-12-17] MEDS: Potassium Chloride 20 mEq ER Tab PO SCH ×2 (09:48→17:54)
[2017-12-17] MEDS: Clotrimazole 1% Top Soln(10 ml) TOP SCH ×2 (09:49→17:54)
[2017-12-17] MEDS: Multivitamin With Minerals Tab PO SCH (09:50)
[2017-12-17] MEDS: cefTRIAXone 2 GM IN NS 2 GM/100 ML BAG IVPB SCH (09:50)
[2017-12-17] MEDS: Pantoprazole 40 mg EC Tab PO SCH (09:50)
--- NOTE | 2017-12-17 10:46 | CP.PCM.PN ---
<Jose Alfredo Givens - Last Filed: 12/17/17 10:43> Subjective - Date & Time of Evaluation Date of Evaluation: 12/17/17 Time of Evaluation: 07:15 - Subjective Subjective: IM Progress Note for Hospitalist service Patient seen and assessed at bedside. No acute events overnight. Attempts to contact family members are ongoing as per social work faculty member. Patient oriented to person and place only, only answers yes/no questions clearly, mumbles unintelligibly when asked anything requiring more complex answer. Patient denies acute complaints, including chest and abdominal pain, nausea, emesis, diarrhea, and shortness of breath. Objective - Vital Signs/Intake and Output Vital Signs (last 24 hours): Temp Pulse Resp BP Pulse Ox 97 F L 91 H 20 112/71 90 L 12/17/17 08:36 12/17/17 09:51 12/17/17 08:36 12/17/17 09:51 12/17/17 08:36 Intake and Output: 12/17/17 12/17/17 06:59 18:59 Intake Total 540 0 Balance 540 0 - Medications Medications: Current Medications Acetylcysteine (Acetylcysteine 20%) 4 ml IH BIDRESP [facility] Last Admin: 12/17/17 07:19 Dose: 4 ml Amlodipine Besylate (Norvasc) 10 mg PO DAILY [facility] Last Admin: 12/17/17 09:49 Dose: 10 mg Aspirin (Ecotrin) 81 mg PO DAILY [facility] Last Admin: 12/17/17 09:47 Dose: 81 mg Atorvastatin Calcium (Lipitor) 20 mg PO DIN [facility] Last Admin: 12/16/17 17:03 Dose: 20 mg Clotrimazole (Lotrimin Af 1%) 0 ml TOP BID [facility] Last Admin: 12/17/17 09:49 Dose: 1 applic Folic Acid (Folic Acid) 1 mg PO DAILY [facility] Last Admin: 12/17/17 09:47 Dose: 1 mg Heparin Sodium (Porcine) (Heparin) 5,000 units SC Q12 [facility] PRN Reason: Protocol Last Admin: 12/17/17 09:47 Dose: 5,000 units Hydralazine HCl (Apresoline) 10 mg IVP Q6 PRN PRN Reason: For SBP > 150 Last Admin: 12/13/17 08:32 Dose: 10 mg Ceftriaxone Sodium (Rocephin 2 Gm Ivpb) 2 gm in 100 mls @ 100 mls/hr IVPB DAILY [facility] PRN Reason: Protocol Last Admin: 12/17/17 09:50 Dose: 100 mls/hr Ibuprofen (Motrin Tab) 400 mg PO Q6H PRN PRN Reason: Fever >100.4 F Last Admin: 12/10/17 23:04 Dose: 400 mg Insulin Detemir (Levemir) 10 unit SC HS [facility] Last Admin: 12/16/17 22:28 Dose: 10 unit Insulin Human Regular (Humulin R High) 0 units SC ACHS [facility] PRN Reason: Protocol Last Admin: 12/17/17 09:48 Dose: 2 units Levalbuterol HCl (Xopenex) 0.63 mg IH [id number] [facility] Last Admin: 12/17/17 07:19 Dose: 0.63 mg Lisinopril (Zestril) 10 mg PO DAILY [facility] Last Admin: 12/17/17 09:51 Dose: 10 mg Multivitamins/Minerals (Therapeutic-M Tab) 1 tab PO 0800 [facility] Last Admin: 12/17/17 09:50 Dose: 1 tab Pantoprazole Sodium (Protonix Ec Tab) 40 mg PO ACB [facility] Last Admin: 12/17/17 09:50 Dose: 40 mg Potassium Chloride (K-Dur 20 Meq Er Tab) 40 meq PO BID [facility] Last Admin: 12/17/17 09:48 Dose: 40 meq Thiamine HCl (Vitamin B1 Tab) 100 mg PO DAILY [facility] Last Admin: 12/17/17 09:51 Dose: 100 mg - Labs Labs: 12/17/17 05:30 12/17/17 05:30 PT 12.5 SECONDS (9.4-12.5) 12/09/17 10:00 INR 1.09 (0.93-1.08) H 12/09/17 10:00 APTT 28.3 Seconds (25.1-36.5) 11/30/17 05:30 - Additional Findings Additional findings: - Constitutional Appears: Non-toxic, No Acute Distress - Head Exam Head Exam: ATRAUMATIC, NORMOCEPHALIC - Eye Exam Eye Exam: EOMI, PERRL Pupil Exam: NORMAL ACCOMODATION - ENT Exam ENT Exam: Mucous Membranes Moist - Neck Exam Neck Exam: Full ROM. absent: Lymphadenopathy - Respiratory Exam Respiratory Exam: Clear to Ausculation Bilateral, NORMAL BREATHING PATTERN. absent: Rales, Rhonchi, Wheezes, Respiratory Distress - Cardiovascular Exam Cardiovascular Exam: REGULAR RHYTHM, RRR, +S1, +S2. absent: Tachycardia - GI/Abdominal Exam GI & Abdominal Exam: Soft, Normal Bowel Sounds. absent: Tenderness - Extremities Exam Extremities Exam: Normal Capillary Refill. absent: Calf Tenderness, Joint Swelling, Pedal Edema, Tenderness Additional comments: RLE wound dressing clean, dry and intact - Back Exam Back Exam: absent: CVA tenderness (L), CVA tenderness (R), vertebral tenderness - Neurological Exam Neurological Exam: Alert, Awake, oriented to self and location - Psychiatric Exam Psych Exam: unable to fully assess due to mental status and mostly non-verbal state, not overtly anxious or agitated, lethargic - Skin Skin Exam: Dry, Warm Assessment and Plan - Assessment and Plan (Free Text) Assessment: This is a 57 year old male with an unknown past medical history who was brought in by ambulance after being found with an AMS and covered in feces in his apartment. His mental status has improved since admission but appears to have plateaued. He is currently on IV Rocephin for coagulase negative staph and strep viridans bacteremia, with repeat blood cultures negative. An echo with bubble study couldn't rule out septic vegetations of the aortic valve. ID is following and recommends continuing antibiotics for 4-6 weeks. Cardiology was consulted for TAHIR evaluation to rule out endocarditis and septic vegetations. An MRI Brain showed acute vs. subacute lacunar infarct in the left parietal region. Neurology is following and patient is on stroke prevention medication. Patient was found to have new colonic mass and multifocal pneumonia on CT chest/ abdomen/pelvis and concerns for metastatic disease of the liver on abdominal ultrasound. GI was consulted. Flexible sigmoidoscopy/Colonoscopy and TAHIR to be done when consent can be obtained. Plan: 1) Toxic-Metabolic Encephalopathy secondary to Strep Viridans/Coag Neg Staph Bacteremia -Repeat blood cultures negative -Continue IV Rocephin (Day 5) for 4-6 weeks -Continue Motrin 400mg Q6 PRN for fever -TAHIR to be done when consent can be obtained -Cardiology, Neurology and ID consulted, all recommendations appreciated -PT/OT recommending JOSIAH upon discharge 2) Colonic Neoplasm -Flexible sigmoidoscopy/Colonoscopy to be done when consent can be obtained -Abd US concerning for hepatic masses, possibly metastatic lesions, overall picture concerning for colon cancer with hepatic mets, Radiologist recs MRI -GI consulted, all recommendations appreciated 3. Multifocal Pneumonia -Continue IV Rocephin (Day 5) -Continue Xopenex [id number] and continued Mucormyst BID 4. Ischemic Stroke -Continue ASA 81mg and Lipitor 20mg 5. History of Alcohol Abuse/Withdrawal -PO Folate, Thiamine, and MV supplementation -Fall, Seizure and Aspiration precautions 6. DM2 -SSI-High and Accuchecks ACHS -Levemir 10u HS -Carb Consistent Diet 7. HTN -Continue Lisinopril 10mg, Norvasc 10mg PO daily and hydralazine 10mg IVP Q6 PRN 8. Stage 2 Sacral Decubitus Ulcers with associated Cellulitis -Continue Lotrimin AF 1% ointment -Continue wound care and Q2 repositioning -OOB to chair 9. Hypokalemia -Currently within normal limits -Continue daily supplementation with KCl 40meq BID Dispo: Pending contact of family for placement/colonoscopy/TAHIR; as family remains unreachable needs placement, PT recs JOSIAH FEN: Heart-healthy diet, Thiamine, Folate, Multivitamin Access: Peripheral IV, likely needs PICC for mcc Abx Consults: Neuro, ID, Cardio Ppx: Protonix for GI, Heparin and SCD's for DVT Patient seen and case discussed with attending, Dr. Galo. <Sixto Galo - Last Filed: 12/17/17 11:18> Objective - Vital Signs/Intake and Output Vital Signs (last 24 hours): Temp Pulse Resp BP Pulse Ox 97 F L 91 H 20 112/71 90 L 12/17/17 08:36 12/17/17 09:51 12/17/17 08:36 12/17/17 09:51 12/17/17 08:36 Intake and Output: 12/17/17 12/17/17 06:59 18:59 Intake Total 540 0 Balance 540 0 - Medications Medications: Current Medications Acetylcysteine (Acetylcysteine 20%) 4 ml IH BIDRESP [facility] Last Admin: 12/17/17 07:19 Dose: 4 ml Amlodipine Besylate (Norvasc) 10 mg PO DAILY [facility] Last Admin: 12/17/17 09:49 Dose: 10 mg Aspirin (Ecotrin) 81 mg PO DAILY [facility] Last Admin: 12/17/17 09:47 Dose: 81 mg Atorvastatin Calcium (Lipitor) 20 mg PO DIN [facility] Last Admin: 12/16/17 17:03 Dose: 20 mg Clotrimazole (Lotrimin Af 1%) 0 ml TOP BID [facility] Last Admin: 12/17/17 09:49 Dose: 1 applic Folic Acid (Folic Acid) 1 mg PO DAILY [facility] Last Admin: 12/17/17 09:47 Dose: 1 mg Heparin Sodium (Porcine) (Heparin) 5,000 units SC Q12 [facility] PRN Reason: Protocol Last Admin: 12/17/17 09:47 Dose: 5,000 units Hydralazine HCl (Apresoline) 10 mg IVP Q6 PRN PRN Reason: For SBP > 150 Last Admin: 12/13/17 08:32 Dose: 10 mg Ceftriaxone Sodium (Rocephin 2 Gm Ivpb) 2 gm in 100 mls @ 100 mls/hr IVPB DAILY [facility] PRN Reason: Protocol Last Admin: 12/17/17 09:50 Dose: 100 mls/hr Ibuprofen (Motrin Tab) 400 mg PO Q6H PRN PRN Reason: Fever >100.4 F Last Admin: 12/10/17 23:04 Dose: 400 mg Insulin Detemir (Levemir) 10 unit SC HS [facility] Last Admin: 12/16/17 22:28 Dose: 10 unit Insulin Human Regular (Humulin R High) 0 units SC ACHS [facility] PRN Reason: Protocol Last Admin: 12/17/17 09:48 Dose: 2 units Levalbuterol HCl (Xopenex) 0.63 mg IH [id number] [facility] Last Admin: 12/17/17 11:10 Dose: 0.63 mg Lisinopril (Zestril) 10 mg PO DAILY [facility] Last Admin: 12/17/17 09:51 Dose: 10 mg Multivitamins/Minerals (Therapeutic-M Tab) 1 tab PO 0800 [facility] Last Admin: 12/17/17 09:50 Dose: 1 tab Pantoprazole Sodium (Protonix Ec Tab) 40 mg PO ACB [facility] Last Admin: 12/17/17 09:50 Dose: 40 mg Potassium Chloride (K-Dur 20 Meq Er Tab) 40 meq PO BID [facility] Last Admin: 12/17/17 09:48 Dose: 40 meq Thiamine HCl (Vitamin B1 Tab) 100 mg PO DAILY [facility] Last Admin: 12/17/17 09:51 Dose: 100 mg - Labs Labs: 12/17/17 05:30 12/17/17 05:30 PT 12.5 SECONDS (9.4-12.5) 12/09/17 10:00 INR 1.09 (0.93-1.08) H 12/09/17 10:00 APTT 28.3 Seconds (25.1-36.5) 11/30/17 05:30 Attending/Attestation - Attestation I have personally seen and examined this patient.: Yes I have fully participated in the care of the patient.: Yes I have reviewed all pertinent clinical information, including history, physical exam and plan: Yes Notes (Text): 12/17/17 11:16 57 year old male with no known past medical history who presented with altered mental status, covered in feces in his apartment. He was admitted for right hip cellulitis, which has improved. He was also found to have Streptococcus viridian in blood cultures for which he is on iv antibiotics. Repeat cultures have been negative. Echocardiogram was done which could not rule out septic vegetations of the aortic valve. Family is still not available to give consent for TAHIR. Continue with iv antibiotics as per ID; will need 4-6 weeks total with weekly CBC, CMP, ESR, and CRP. CT chest also showed multifocal pneumonia for which he received iv antibiotics. He was also treated with tamiflu for flu. CT abd/pelvis showed new colonic mass and possible metastatic disease to the liver. GI planned for sigmoidoscopy however again family is not available to give consent for procedure. MRI showed acute vs subacute infarct. PT is following and recommended JOSIAH. Continue with aspirin and statin. Monitor LFTs while on statin. gospel worker notes were reviewed regarding attempts to reach family. Sixto Galo MD Hospitalist.
--- NOTE | 2017-12-17 18:52 | CP.PCM.PN ---
Subjective - Date & Time of Evaluation Date of Evaluation: 12/17/17 Time of Evaluation: 10:20 - Subjective Subjective: Comfortable, no fevers, not in distress. Objective - Vital Signs/Intake and Output Vital Signs (last 24 hours): Temp Pulse Resp BP Pulse Ox 98.2 F 95 H 18 145/70 97 12/16/17 08:32 12/16/17 08:32 12/16/17 08:32 12/16/17 09:23 12/16/17 08:32 Intake and Output: 12/16/17 12/16/17 06:59 18:59 Intake Total 540 Balance 540 - Medications Medications: Current Medications Acetylcysteine (Acetylcysteine 20%) 4 ml IH BIDRESP [facility] Last Admin: 12/16/17 07:24 Dose: Not Given Amlodipine Besylate (Norvasc) 10 mg PO DAILY [facility] Last Admin: 12/16/17 09:23 Dose: 10 mg Aspirin (Ecotrin) 81 mg PO DAILY [facility] Last Admin: 12/16/17 09:23 Dose: 81 mg Atorvastatin Calcium (Lipitor) 20 mg PO DIN [facility] Last Admin: 12/15/17 16:58 Dose: 20 mg Clotrimazole (Lotrimin Af 1%) 0 ml TOP BID [facility] Last Admin: 12/16/17 09:24 Dose: 1 applic Folic Acid (Folic Acid) 1 mg PO DAILY [facility] Last Admin: 12/16/17 09:23 Dose: 1 mg Heparin Sodium (Porcine) (Heparin) 5,000 units SC Q12 [facility] PRN Reason: Protocol Last Admin: 12/16/17 09:22 Dose: 5,000 units Hydralazine HCl (Apresoline) 10 mg IVP Q6 PRN PRN Reason: For SBP > 150 Last Admin: 12/13/17 08:32 Dose: 10 mg Ceftriaxone Sodium (Rocephin 2 Gm Ivpb) 2 gm in 100 mls @ 100 mls/hr IVPB DAILY [facility] PRN Reason: Protocol Last Admin: 12/16/17 09:22 Dose: 100 mls/hr Ibuprofen (Motrin Tab) 400 mg PO Q6H PRN PRN Reason: Fever >100.4 F Last Admin: 12/10/17 23:04 Dose: 400 mg Insulin Detemir (Levemir) 10 unit SC HS [facility] Last Admin: 12/15/17 21:42 Dose: 10 unit Insulin Human Regular (Humulin R High) 0 units SC ACHS [facility] PRN Reason: Protocol Last Admin: 12/16/17 08:37 Dose: 1 units Levalbuterol HCl (Xopenex) 0.63 mg IH [id number] [facility] Last Admin: 12/16/17 07:24 Dose: Not Given Lisinopril (Zestril) 10 mg PO DAILY [facility] Last Admin: 12/16/17 09:23 Dose: 10 mg Multivitamins/Minerals (Therapeutic-M Tab) 1 tab PO 0800 [facility] Last Admin: 12/16/17 08:38 Dose: 1 tab Pantoprazole Sodium (Protonix Ec Tab) 40 mg PO ACB [facility] Last Admin: 12/16/17 08:38 Dose: 40 mg Potassium Chloride (K-Dur 20 Meq Er Tab) 40 meq PO BID [facility] Last Admin: 12/16/17 09:23 Dose: 40 meq Thiamine HCl (Vitamin B1 Tab) 100 mg PO DAILY [facility] Last Admin: 12/16/17 09:23 Dose: 100 mg - Labs Labs: 12/16/17 05:30 12/16/17 05:30 PT 12.5 SECONDS (9.4-12.5) 12/09/17 10:00 INR 1.09 (0.93-1.08) H 12/09/17 10:00 APTT 28.3 Seconds (25.1-36.5) 11/30/17 05:30 - Constitutional Appears: Chronically Ill - Head Exam Head Exam: NORMAL INSPECTION - ENT Exam ENT Exam: Mucous Membranes Moist - Neck Exam Neck Exam: absent: Meningismus - Respiratory Exam Respiratory Exam: Decreased Breath Sounds - Cardiovascular Exam Cardiovascular Exam: +S1, +S2 - GI/Abdominal Exam GI & Abdominal Exam: Soft. absent: Tenderness Assessment and Plan - Assessment and Plan (Free Text) Plan: Assessment sepsis due to strep viridans and CoNS bacteremia from right gluteal and back cellulitis S/P multifocal HCAP on top of Influenza A infection R/O Sammie infection of sacral area as well Plan S/P 7 days of Vancomycin and Merrem; S/P Tamiflu; will now switch to Rocephin for the Strep viridans bacteremia (would continue 4-6 weeks of Rocephin with weekly ESR, CRP, CBC, CMP) - unable to do TAHIR since patient unable to give consent and patient does not have family to give consent - discussed with Dr. Schumacher previously continue topical antifungal over sacral area as well will continue to monitor clinically
[2017-12-17] MEDS: Insulin Detemir 100 units/ml Vial (Levemir) SC SCH (21:46)
[2017-12-18] MEDS: Levalbuterol 0.63 MG/3 ML Inhal Soln UD IH SCH ×6 (00:37→20:40)
[2017-12-18 07:20] LABS: BASO # 0.04 K/mm3 (0.0-2.0); BASO % 0.3 % (0.0-3.0); EOS # 0.1 (0.0-0.7); EOS % 0.8 % (1.5-5.0); GRAN # 7.9 (1.4-6.5); GRAN % 65.9 % (50.0-68.0); HEMOGLOBIN 13.4 g/dL (14.0-18.0); LYMPH # 3.1 (1.2-3.4); LYMPH % 26.2 % (22.0-35.0); MEAN CORPUSCULAR HEMOGLOBIN 28.3 pg (25.0-35.0); MEAN CORPUSCULAR HGB CONC 32.9 g/dl (31.0-37.0); MONO # 0.8 (0.1-0.6); MONO % 6.8 % (1.0-6.0); RBC 4.73 10^6/uL (3.5-6.1); RED CELL DISTRIBUTION WIDTH 16.3 % (11.5-14.5)
--- NOTE | 2017-12-18 07:27 | CP.PCM.PN ---
<Shanon White - Last Filed: 12/18/17 10:46> Subjective - Date & Time of Evaluation Date of Evaluation: 12/18/17 Time of Evaluation: 07:26 - Subjective Subjective: Progress note for Dr. Galo Patient seen and examined at bedside. No acute events overnight. Patient said he didn't have any questions at this time and if he had any questions he will ask. Patient spoke more and talked about his brother. He didn't know where his brother lived. Patient states he's not having any pain, discomfort, fevers, chills, chest pain. Objective - Vital Signs/Intake and Output Vital Signs (last 24 hours): Temp Pulse Resp BP Pulse Ox 97.5 F L 100 H 20 117/78 91 L 12/17/17 16:00 12/17/17 16:00 12/17/17 16:00 12/17/17 16:00 12/17/17 16:00 Intake and Output: 12/18/17 12/18/17 06:59 18:59 Intake Total 600 Balance 600 - Medications Medications: Current Medications Acetylcysteine (Acetylcysteine 20%) 4 ml IH BIDRESP [facility] Last Admin: 12/17/17 19:46 Dose: 4 ml Amlodipine Besylate (Norvasc) 10 mg PO DAILY [facility] Last Admin: 12/17/17 09:49 Dose: 10 mg Aspirin (Ecotrin) 81 mg PO DAILY [facility] Last Admin: 12/17/17 09:47 Dose: 81 mg Atorvastatin Calcium (Lipitor) 20 mg PO DIN [facility] Last Admin: 12/17/17 17:54 Dose: 20 mg Clotrimazole (Lotrimin Af 1%) 0 ml TOP BID [facility] Last Admin: 12/17/17 17:54 Dose: 1 applic Folic Acid (Folic Acid) 1 mg PO DAILY [facility] Last Admin: 12/17/17 09:47 Dose: 1 mg Heparin Sodium (Porcine) (Heparin) 5,000 units SC Q12 [facility] PRN Reason: Protocol Last Admin: 12/17/17 09:47 Dose: 5,000 units Hydralazine HCl (Apresoline) 10 mg IVP Q6 PRN PRN Reason: For SBP > 150 Last Admin: 12/13/17 08:32 Dose: 10 mg Ceftriaxone Sodium (Rocephin 2 Gm Ivpb) 2 gm in 100 mls @ 100 mls/hr IVPB DAILY [facility] PRN Reason: Protocol Last Admin: 12/17/17 09:50 Dose: 100 mls/hr Ibuprofen (Motrin Tab) 400 mg PO Q6H PRN PRN Reason: Fever >100.4 F Last Admin: 12/10/17 23:04 Dose: 400 mg Insulin Detemir (Levemir) 10 unit SC HS [facility] Last Admin: 12/17/17 21:46 Dose: 10 unit Insulin Human Regular (Humulin R High) 0 units SC ACHS [facility] PRN Reason: Protocol Last Admin: 12/17/17 21:37 Dose: Not Given Levalbuterol HCl (Xopenex) 0.63 mg IH [id number] [facility] Last Admin: 12/18/17 04:28 Dose: Not Given Lisinopril (Zestril) 10 mg PO DAILY [facility] Last Admin: 12/17/17 09:51 Dose: 10 mg Multivitamins/Minerals (Therapeutic-M Tab) 1 tab PO 0800 [facility] Last Admin: 12/17/17 09:50 Dose: 1 tab Pantoprazole Sodium (Protonix Ec Tab) 40 mg PO ACB [facility] Last Admin: 12/17/17 09:50 Dose: 40 mg Potassium Chloride (K-Dur 20 Meq Er Tab) 40 meq PO BID [facility] Last Admin: 12/17/17 17:54 Dose: 40 meq Thiamine HCl (Vitamin B1 Tab) 100 mg PO DAILY [facility] Last Admin: 12/17/17 09:51 Dose: 100 mg - Labs Labs: 12/17/17 05:30 12/17/17 05:30 PT 12.5 SECONDS (9.4-12.5) 12/09/17 10:00 INR 1.09 (0.93-1.08) H 12/09/17 10:00 APTT 28.3 Seconds (25.1-36.5) 11/30/17 05:30 - Constitutional Appears: Non-toxic, No Acute Distress - Head Exam Head Exam: ATRAUMATIC, NORMAL INSPECTION, NORMOCEPHALIC - Eye Exam Eye Exam: EOMI, Normal appearance Pupil Exam: NORMAL ACCOMODATION, PERRL - ENT Exam ENT Exam: Mucous Membranes Moist, Normal Exam - Neck Exam Neck Exam: Full ROM, Normal Inspection - Respiratory Exam Respiratory Exam: Clear to Ausculation Bilateral, NORMAL BREATHING PATTERN. absent: Accessory Muscle Use, Respiratory Distress - Cardiovascular Exam Cardiovascular Exam: REGULAR RHYTHM, +S1, +S2. absent: Bradycardia, Tachycardia - GI/Abdominal Exam GI & Abdominal Exam: Soft. absent: Tenderness - Extremities Exam Extremities Exam: Full ROM, Normal Capillary Refill, Normal Inspection. absent : Pedal Edema - Neurological Exam Neurological Exam: Awake, CN II-XII Intact - Psychiatric Exam Psychiatric exam: Normal Affect - Skin Skin Exam: Dry, Normal Color Assessment and Plan - Assessment and Plan (Free Text) Assessment: 57 year old male with an unknown past medical history who was brought in by ambulance after being found with an AMS and covered in feces in his apartment. His mental status has improved since admission but appears to have plateaued. He is currently on IV Rocephin for coagulase negative staph and strep viridans bacteremia, with repeat blood cultures negative. An echo with bubble study couldn't rule out septic vegetations of the aortic valve. ID is following and recommends continuing antibiotics for 4-6 weeks. Cardiology was consulted for TAHIR evaluation to rule out endocarditis and septic vegetations. An MRI Brain showed acute vs. subacute lacunar infarct in the left parietal region. Neurology is following and patient is on stroke prevention medication. Patient was found to have new colonic mass and multifocal pneumonia on CT chest/abdomen/ pelvis and concerns for metastatic disease of the liver on abdominal ultrasound. GI was consulted. Flexible sigmoidoscopy/Colonoscopy and TAHIR to be done when consent can be obtained. Plan: 1) Toxic-Metabolic Encephalopathy secondary to Strep Viridans/Coag Neg Staph Bacteremia -Repeat blood cultures negative -Continue IV Rocephin (Day 5) for 4-6 weeks -Continue Motrin 400mg Q6 PRN for fever -TAHIR to be done when consent can be obtained -Cardiology, Neurology and ID consulted, all recommendations appreciated -PT/OT recommending JOSIAH upon discharge 2) Colonic Neoplasm -Abd US concerning for hepatic masses, possibly metastatic lesions, overall picture concerning for colon cancer with hepatic mets, Radiologist recs MRI CT abd/pelvis: new colonic mass and possible metastatic disease to the liver unable to obtain consent for sigmoidoscopy. cannot reach family -Flexible sigmoidoscopy/Colonoscopy to be done when consent can be obtained -GI consulted, all recommendations appreciated 3. Multifocal Pneumonia, with influenza A CT chest showed multifocal pneumonia ID consult: Dr. Brunner -Continue IV Rocephin (started 12/13/17) -Continue Xopenex [id number] and continued Mucormyst BID 4. Ischemic Stroke MRI brain: subacute infarct -Continue ASA 81mg and Lipitor 20mg 5. History of Alcohol Abuse/Withdrawal -PO Folate, Thiamine, and MV supplementation -Fall, Seizure and Aspiration precautions 6. DM2 -SSI-High and Accuchecks ACHS -Levemir 10u HS -Carb Consistent Diet 7. HTN -Continue Lisinopril 10mg, Norvasc 10mg PO daily and hydralazine 10mg IVP Q6 PRN 8. Stage 2 Sacral Decubitus Ulcers with associated Cellulitis -Continue Lotrimin AF 1% ointment -Continue wound care and Q2 repositioning -OOB to chair 9. 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 Galo. <Sixto Galo - Last Filed: 12/18/17 10:58> Objective - Vital Signs/Intake and Output Vital Signs (last 24 hours): Temp Pulse Resp BP Pulse Ox 97.6 F 95 H 22 121/82 97 12/18/17 06:00 12/18/17 06:00 12/18/17 06:00 12/18/17 06:00 12/18/17 06:00 Intake and Output: 12/18/17 12/18/17 06:59 18:59 Intake Total 600 Balance 600 - Medications Medications: Current Medications Acetylcysteine (Acetylcysteine 20%) 4 ml IH BIDRESP [facility] Last Admin: 12/18/17 07:57 Dose: 4 ml Amlodipine Besylate (Norvasc) 10 mg PO DAILY [facility] Last Admin: 12/17/17 09:49 Dose: 10 mg Aspirin (Ecotrin) 81 mg PO DAILY [facility] Last Admin: 12/17/17 09:47 Dose: 81 mg Atorvastatin Calcium (Lipitor) 20 mg PO DIN [facility] Last Admin: 12/17/17 17:54 Dose: 20 mg Clotrimazole (Lotrimin Af 1%) 0 ml TOP BID [facility] Last Admin: 12/17/17 17:54 Dose: 1 applic Folic Acid (Folic Acid) 1 mg PO DAILY [facility] Last Admin: 12/17/17 09:47 Dose: 1 mg Heparin Sodium (Porcine) (Heparin) 5,000 units SC Q12 [facility] PRN Reason: Protocol Last Admin: 12/17/17 09:47 Dose: 5,000 units Hydralazine HCl (Apresoline) 10 mg IVP Q6 PRN PRN Reason: For SBP > 150 Last Admin: 12/13/17 08:32 Dose: 10 mg Ceftriaxone Sodium (Rocephin 2 Gm Ivpb) 2 gm in 100 mls @ 100 mls/hr IVPB DAILY [facility] PRN Reason: Protocol Last Admin: 12/17/17 09:50 Dose: 100 mls/hr Ibuprofen (Motrin Tab) 400 mg PO Q6H PRN PRN Reason: Fever >100.4 F Last Admin: 12/10/17 23:04 Dose: 400 mg Insulin Detemir (Levemir) 10 unit SC HS [facility] Last Admin: 12/17/17 21:46 Dose: 10 unit Insulin Human Regular (Humulin R High) 0 units SC ACHS [facility] PRN Reason: Protocol Last Admin: 12/18/17 08:50 Dose: 1 units Levalbuterol HCl (Xopenex) 0.63 mg IH [id number] [facility] Last Admin: 12/18/17 07:57 Dose: 0.63 mg Lisinopril (Zestril) 10 mg PO DAILY [facility] Last Admin: 12/17/17 09:51 Dose: 10 mg Multivitamins/Minerals (Therapeutic-M Tab) 1 tab PO 0800 [facility] Last Admin: 12/18/17 08:50 Dose: 1 tab Pantoprazole Sodium (Protonix Ec Tab) 40 mg PO ACB [facility] Last Admin: 12/18/17 08:50 Dose: 40 mg Potassium Chloride (K-Dur 20 Meq Er Tab) 40 meq PO BID [facility] Last Admin: 12/17/17 17:54 Dose: 40 meq Thiamine HCl (Vitamin B1 Tab) 100 mg PO DAILY [facility] Last Admin: 12/17/17 09:51 Dose: 100 mg - Labs Labs: 12/18/17 06:30 12/18/17 06:30 PT 12.5 SECONDS (9.4-12.5) 12/09/17 10:00 INR 1.09 (0.93-1.08) H 12/09/17 10:00 APTT 28.3 Seconds (25.1-36.5) 11/30/17 05:30 Attending/Attestation - Attestation I have personally seen and examined this patient.: Yes I have fully participated in the care of the patient.: Yes I have reviewed all pertinent clinical information, including history, physical exam and plan: Yes Notes (Text): 12/18/17 10:54 57 year old male with no known past medical history who presented with altered mental status, covered in feces in his apartment. He was admitted for right hip cellulitis, which has improved. Continue with clotrimazole bid. He was also found to have Streptococcus viridian in blood cultures for which he is on iv antibiotics. Repeat cultures have been negative. Echocardiogram was done which could not rule out septic vegetations of the aortic valve. Family is still not available to give consent for TAHIR. Continue with iv antibiotics as per ID; will need 4-6 weeks total with weekly CBC, CMP, ESR, and CRP. CT abd/pelvis showed new colonic mass and possible metastatic disease to the liver. GI planned for sigmoidoscopy however again family is not available to give consent for procedure. CT chest also showed multifocal pneumonia for which he received iv antibiotics. He was also treated with tamiflu for flu. MRI showed acute vs subacute infarct. PT is following and recommended JOSIAH. Continue with aspirin and statin. Monitor LFTs while on statin. Today patient is able to answer more questions. He is oriented to self but not to date. Knows he's in the hospital but not able to answer why. He is able to tell me street he lives on and his brother's name. However does not answer to his whereabouts. Will follow up with social and political studies professor as well on Wednesday. Sixto Galo MD Hospitalist.
[2017-12-18 07:30] LABS: ALB/GLOB RATIO 1.1 (1.1-1.8); ALBUMIN 3.6 g/dL (3.0-4.8); ALT/SGPT 40 U/L (7-56); AST/SGOT 35 U/L (17-59); BLOOD UREA NITROGEN 16 mg/dL (7-21); GFR NON-AFRICAN AMERICAN > 60
[2017-12-18] MEDS: Acetylcysteine 20% Inhal Soln (4ml) IH SCH ×2 (07:57→20:40)
[2017-12-18] MEDS: Insulin Reg-HIGH-Coverage SC SCH ×4 (08:50→22:00)
[2017-12-18] MEDS: Multivitamin With Minerals Tab PO SCH (08:50)
[2017-12-18] MEDS: Pantoprazole 40 mg EC Tab PO SCH (08:50)
[2017-12-18] MEDS: Potassium Chloride 20 mEq ER Tab PO SCH ×2 (11:09→18:13)
[2017-12-18] MEDS: Clotrimazole 1% Top Soln(10 ml) TOP SCH ×2 (11:12→18:13)
[2017-12-18] MEDS: cefTRIAXone 2 GM IN NS 2 GM/100 ML BAG IVPB SCH (11:12)
--- NOTE | 2017-12-18 17:11 | CP.PCM.PN ---
Subjective - Date & Time of Evaluation Date of Evaluation: 12/18/17 Time of Evaluation: 11:45 - Subjective Subjective: Comfortable, no fevers, no diarrhea. Objective - Vital Signs/Intake and Output Vital Signs (last 24 hours): Temp Pulse Resp BP Pulse Ox 97.5 F L 100 H 20 117/78 91 L 12/17/17 16:00 12/17/17 16:00 12/17/17 16:00 12/17/17 16:00 12/17/17 16:00 Intake and Output: 12/17/17 12/17/17 06:59 18:59 Intake Total 540 780 Balance 540 780 - Medications Medications: Current Medications Acetylcysteine (Acetylcysteine 20%) 4 ml IH BIDRESP [facility] Last Admin: 12/17/17 07:19 Dose: 4 ml Amlodipine Besylate (Norvasc) 10 mg PO DAILY [facility] Last Admin: 12/17/17 09:49 Dose: 10 mg Aspirin (Ecotrin) 81 mg PO DAILY [facility] Last Admin: 12/17/17 09:47 Dose: 81 mg Atorvastatin Calcium (Lipitor) 20 mg PO DIN [facility] Last Admin: 12/17/17 17:54 Dose: 20 mg Clotrimazole (Lotrimin Af 1%) 0 ml TOP BID [facility] Last Admin: 12/17/17 17:54 Dose: 1 applic Folic Acid (Folic Acid) 1 mg PO DAILY [facility] Last Admin: 12/17/17 09:47 Dose: 1 mg Heparin Sodium (Porcine) (Heparin) 5,000 units SC Q12 [facility] PRN Reason: Protocol Last Admin: 12/17/17 09:47 Dose: 5,000 units Hydralazine HCl (Apresoline) 10 mg IVP Q6 PRN PRN Reason: For SBP > 150 Last Admin: 12/13/17 08:32 Dose: 10 mg Ceftriaxone Sodium (Rocephin 2 Gm Ivpb) 2 gm in 100 mls @ 100 mls/hr IVPB DAILY [facility] PRN Reason: Protocol Last Admin: 12/17/17 09:50 Dose: 100 mls/hr Ibuprofen (Motrin Tab) 400 mg PO Q6H PRN PRN Reason: Fever >100.4 F Last Admin: 12/10/17 23:04 Dose: 400 mg Insulin Detemir (Levemir) 10 unit SC HS [facility] Last Admin: 12/16/17 22:28 Dose: 10 unit Insulin Human Regular (Humulin R High) 0 units SC ACHS [facility] PRN Reason: Protocol Last Admin: 12/17/17 17:50 Dose: 4 units Levalbuterol HCl (Xopenex) 0.63 mg IH [id number] [facility] Last Admin: 12/17/17 15:58 Dose: Not Given Lisinopril (Zestril) 10 mg PO DAILY [facility] Last Admin: 12/17/17 09:51 Dose: 10 mg Multivitamins/Minerals (Therapeutic-M Tab) 1 tab PO 0800 [facility] Last Admin: 12/17/17 09:50 Dose: 1 tab Pantoprazole Sodium (Protonix Ec Tab) 40 mg PO ACB [facility] Last Admin: 12/17/17 09:50 Dose: 40 mg Potassium Chloride (K-Dur 20 Meq Er Tab) 40 meq PO BID [facility] Last Admin: 12/17/17 17:54 Dose: 40 meq Thiamine HCl (Vitamin B1 Tab) 100 mg PO DAILY [facility] Last Admin: 12/17/17 09:51 Dose: 100 mg - Labs Labs: 12/17/17 05:30 12/17/17 05:30 PT 12.5 SECONDS (9.4-12.5) 12/09/17 10:00 INR 1.09 (0.93-1.08) H 12/09/17 10:00 APTT 28.3 Seconds (25.1-36.5) 11/30/17 05:30 - Constitutional Appears: Chronically Ill - Head Exam Head Exam: NORMAL INSPECTION - Respiratory Exam Respiratory Exam: Decreased Breath Sounds - Cardiovascular Exam Cardiovascular Exam: +S1, +S2 - GI/Abdominal Exam GI & Abdominal Exam: Soft. absent: Tenderness Assessment and Plan - Assessment and Plan (Free Text) Plan: Assessment sepsis due to strep viridans and CoNS bacteremia from right gluteal and back cellulitis S/P multifocal HCAP on top of Influenza A infection R/O Sammie infection of sacral area as well Plan S/P 7 days of Vancomycin and Merrem; S/P Tamiflu; will now switch to Rocephin for the Strep viridans bacteremia (would continue 4-6 weeks of Rocephin with weekly ESR, CRP, CBC, CMP) - unable to do TAHIR since patient unable to give consent and patient does not have family to give consent - discussed with Dr. Schumacher previously continue topical antifungal over sacral area as well will continue to follow clinically
[2017-12-18] MEDS: Insulin Detemir 100 units/ml Vial (Levemir) SC SCH (23:04)
[2017-12-19] MEDS: Levalbuterol 0.63 MG/3 ML Inhal Soln UD IH SCH ×7 (00:30→23:00)
--- NOTE | 2017-12-19 07:10 | CP.PCM.PN ---
<ChristopherShanon - Last Filed: 12/19/17 11:22> Subjective - Date & Time of Evaluation Date of Evaluation: 12/19/17 Time of Evaluation: 07:07 - Subjective Subjective: Progress note Patient seen and examined at bedside. No acute events overnight. No fever, chills, nausea, vomiting, diarrhea. Patient states he didn't want to get out of bed to chair and wanted to just rest. Objective - Vital Signs/Intake and Output Vital Signs (last 24 hours): Temp Pulse Resp BP Pulse Ox 97.8 F 99 H 20 127/84 91 L 12/18/17 16:10 12/18/17 16:10 12/18/17 16:10 12/18/17 16:10 12/18/17 16:10 Intake and Output: 12/19/17 12/19/17 06:59 18:59 Intake Total 780 Balance 780 - Medications Medications: Current Medications Acetylcysteine (Acetylcysteine 20%) 4 ml IH BIDRESP [facility] Last Admin: 12/18/17 20:40 Dose: Not Given Amlodipine Besylate (Norvasc) 10 mg PO DAILY [facility] Last Admin: 12/18/17 11:09 Dose: 10 mg Aspirin (Ecotrin) 81 mg PO DAILY [facility] Last Admin: 12/18/17 11:08 Dose: 81 mg Atorvastatin Calcium (Lipitor) 20 mg PO DIN [facility] Last Admin: 12/18/17 18:13 Dose: 20 mg Clotrimazole (Lotrimin Af 1%) 0 ml TOP BID [facility] Last Admin: 12/18/17 18:13 Dose: 1 applic Folic Acid (Folic Acid) 1 mg PO DAILY [facility] Last Admin: 12/18/17 11:09 Dose: 1 mg Heparin Sodium (Porcine) (Heparin) 5,000 units SC Q12 [facility] PRN Reason: Protocol Last Admin: 12/18/17 23:04 Dose: 5,000 units Hydralazine HCl (Apresoline) 10 mg IVP Q6 PRN PRN Reason: For SBP > 150 Last Admin: 12/13/17 08:32 Dose: 10 mg Ceftriaxone Sodium (Rocephin 2 Gm Ivpb) 2 gm in 100 mls @ 100 mls/hr IVPB DAILY [facility] PRN Reason: Protocol Last Admin: 12/18/17 11:12 Dose: 100 mls/hr Ibuprofen (Motrin Tab) 400 mg PO Q6H PRN PRN Reason: Fever >100.4 F Last Admin: 12/10/17 23:04 Dose: 400 mg Insulin Detemir (Levemir) 10 unit SC HS [facility] Last Admin: 12/18/17 23:04 Dose: 10 unit Insulin Human Regular (Humulin R High) 0 units SC ACHS [facility] PRN Reason: Protocol Last Admin: 12/18/17 22:00 Dose: Not Given Levalbuterol HCl (Xopenex) 0.63 mg IH [id number] [facility] Last Admin: 12/19/17 04:20 Dose: Not Given Lisinopril (Zestril) 10 mg PO DAILY [facility] Last Admin: 12/18/17 11:09 Dose: 10 mg Multivitamins/Minerals (Therapeutic-M Tab) 1 tab PO 0800 [facility] Last Admin: 12/18/17 08:50 Dose: 1 tab Pantoprazole Sodium (Protonix Ec Tab) 40 mg PO ACB [facility] Last Admin: 12/18/17 08:50 Dose: 40 mg Potassium Chloride (K-Dur 20 Meq Er Tab) 40 meq PO BID [facility] Last Admin: 12/18/17 18:13 Dose: 40 meq Thiamine HCl (Vitamin B1 Tab) 100 mg PO DAILY [facility] Last Admin: 12/18/17 11:09 Dose: 100 mg - Labs Labs: 12/18/17 06:30 12/18/17 06:30 PT 12.5 SECONDS (9.4-12.5) 12/09/17 10:00 INR 1.09 (0.93-1.08) H 12/09/17 10:00 APTT 28.3 Seconds (25.1-36.5) 11/30/17 05:30 - Constitutional Appears: Non-toxic - Head Exam Head Exam: ATRAUMATIC, NORMAL INSPECTION, NORMOCEPHALIC - Eye Exam Eye Exam: EOMI, Normal appearance Pupil Exam: NORMAL ACCOMODATION, PERRL - ENT Exam ENT Exam: Mucous Membranes Moist, Normal Exam - Neck Exam Neck Exam: Full ROM, Normal Inspection - Respiratory Exam Respiratory Exam: Clear to Ausculation Bilateral, NORMAL BREATHING PATTERN. absent: Accessory Muscle Use - Cardiovascular Exam Cardiovascular Exam: REGULAR RHYTHM, +S1, +S2. absent: Bradycardia, Tachycardia - GI/Abdominal Exam GI & Abdominal Exam: Soft, Normal Bowel Sounds. absent: Tenderness - Extremities Exam Extremities Exam: Full ROM, Normal Capillary Refill, Normal Inspection - Back Exam Back Exam: Full ROM, NORMAL INSPECTION - Neurological Exam Neurological Exam: Alert, Awake, CN II-XII Intact, Oriented x3 - Skin Skin Exam: Dry, Intact, Normal Color, Warm Assessment and Plan - Assessment and Plan (Free Text) Assessment: 57 year old male with an unknown past medical history who was brought in by ambulance after being found with an AMS and covered in feces in his apartment. His mental status has improved since admission but appears to have plateaued. He is currently on IV Rocephin for coagulase negative staph and strep viridans bacteremia, with repeat blood cultures negative. An echo with bubble study couldn't rule out septic vegetations of the aortic valve. ID is following and recommends continuing antibiotics for 4-6 weeks. Cardiology was consulted for TAHIR evaluation to rule out endocarditis and septic vegetations. An MRI Brain showed acute vs. subacute lacunar infarct in the left parietal region. Neurology is following and patient is on stroke prevention medication. Patient was found to have new colonic mass and multifocal pneumonia on CT chest/abdomen/ pelvis and concerns for metastatic disease of the liver on abdominal ultrasound. GI was consulted. Flexible sigmoidoscopy/Colonoscopy and TAHIR to be done when consent can be obtained. Plan: 1) Toxic-Metabolic Encephalopathy secondary to Strep Viridans/Coag Neg Staph Bacteremia -Repeat blood cultures negative -Continue IV Rocephin (Day 5) for 4-6 weeks -Continue Motrin 400mg Q6 PRN for fever -TAHIR to be done when consent can be obtained -Cardiology, Neurology and ID consulted, all recommendations appreciated -PT/OT recommending JOSIAH upon discharge monitor ESR, CRP weekly per ID consult: Dr. Brunner 2) Colonic Neoplasm -Abd US concerning for hepatic masses, possibly metastatic lesions, overall picture concerning for colon cancer with hepatic mets, Radiologist recs MRI CT abd/pelvis: new colonic mass and possible metastatic disease to the liver unable to obtain consent for sigmoidoscopy. cannot reach family -Flexible sigmoidoscopy/Colonoscopy to be done when consent can be obtained -GI consulted, all recommendations appreciated 3. Multifocal Pneumonia, with influenza A CT chest showed multifocal pneumonia ID consult: Dr. Brunner -Continue IV Rocephin (started 12/13/17) -Continue Xopenex [id number] and continued Mucormyst BID 4. Ischemic Stroke MRI brain: subacute infarct -Continue ASA 81mg and Lipitor 20mg 5. History of Alcohol Abuse/Withdrawal -PO Folate, Thiamine, and MV supplementation -Fall, Seizure and Aspiration precautions 6. DM2 -SSI-High and Accuchecks ACHS -Levemir 10u HS -Carb Consistent Diet 7. HTN -Continue Lisinopril 10mg, Norvasc 10mg PO daily and hydralazine 10mg IVP Q6 PRN 8. Stage 2 Sacral Decubitus Ulcers with associated Cellulitis -Continue Lotrimin AF 1% ointment -Continue wound care and Q2 repositioning -OOB to chair 9. 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 Galo. <Sixto Galo - Last Filed: 12/19/17 11:34> Objective - Vital Signs/Intake and Output Vital Signs (last 24 hours): Temp Pulse Resp BP Pulse Ox 97.6 F 96 H 20 135/97 H 94 L 12/19/17 07:31 12/19/17 07:31 12/19/17 07:31 12/19/17 09:06 12/19/17 07:31 Intake and Output: 12/19/17 12/19/17 06:59 18:59 Intake Total 780 Balance 780 - Medications Medications: Current Medications Acetylcysteine (Acetylcysteine 20%) 4 ml IH BIDRESP [facility] Last Admin: 12/19/17 07:58 Dose: Not Given Amlodipine Besylate (Norvasc) 10 mg PO DAILY [facility] Last Admin: 12/19/17 09:06 Dose: 10 mg Aspirin (Ecotrin) 81 mg PO DAILY [facility] Last Admin: 12/19/17 09:07 Dose: 81 mg Atorvastatin Calcium (Lipitor) 20 mg PO DIN [facility] Last Admin: 12/18/17 18:13 Dose: 20 mg Clotrimazole (Lotrimin Af 1%) 0 ml TOP BID [facility] Last Admin: 12/19/17 09:35 Dose: Not Given Folic Acid (Folic Acid) 1 mg PO DAILY [facility] Last Admin: 12/19/17 09:06 Dose: 1 mg Heparin Sodium (Porcine) (Heparin) 5,000 units SC Q12 [facility] PRN Reason: Protocol Last Admin: 12/19/17 09:07 Dose: 5,000 units Hydralazine HCl (Apresoline) 10 mg IVP Q6 PRN PRN Reason: For SBP > 150 Last Admin: 12/13/17 08:32 Dose: 10 mg Ibuprofen (Motrin Tab) 400 mg PO Q6H PRN PRN Reason: Fever >100.4 F Last Admin: 12/10/17 23:04 Dose: 400 mg Insulin Detemir (Levemir) 10 unit SC HS [facility] Last Admin: 12/18/17 23:04 Dose: 10 unit Insulin Human Regular (Humulin R High) 0 units SC ACHS [facility] PRN Reason: Protocol Last Admin: 12/19/17 09:07 Dose: 2 units Levalbuterol HCl (Xopenex) 0.63 mg IH [id number] [facility] Last Admin: 12/19/17 07:58 Dose: Not Given Lisinopril (Zestril) 10 mg PO DAILY [facility] Last Admin: 12/19/17 09:07 Dose: 10 mg Multivitamins/Minerals (Therapeutic-M Tab) 1 tab PO 0800 [facility] Last Admin: 12/19/17 09:07 Dose: 1 tab Pantoprazole Sodium (Protonix Ec Tab) 40 mg PO ACB [facility] Last Admin: 12/19/17 09:07 Dose: 40 mg Potassium Chloride (K-Dur 20 Meq Er Tab) 40 meq PO BID [facility] Last Admin: 12/19/17 09:06 Dose: 40 meq Thiamine HCl (Vitamin B1 Tab) 100 mg PO DAILY [facility] Last Admin: 12/19/17 09:07 Dose: 100 mg - Labs Labs: 12/19/17 07:00 12/19/17 07:00 PT 12.5 SECONDS (9.4-12.5) 12/09/17 10:00 INR 1.09 (0.93-1.08) H 12/09/17 10:00 APTT 28.3 Seconds (25.1-36.5) 11/30/17 05:30 Attending/Attestation - Attestation I have personally seen and examined this patient.: Yes I have fully participated in the care of the patient.: Yes I have reviewed all pertinent clinical information, including history, physical exam and plan: Yes Notes (Text): 12/19/17 11:31 57 year old male with no known past medical history who presented with altered mental status, covered in feces in his apartment. He was admitted for right hip cellulitis, which has improved. Continue with clotrimazole bid. CT chest also showed multifocal pneumonia for which he received iv antibiotics. He was also treated with tamiflu for flu. MRI showed acute vs subacute infarct. PT is following and recommended JOSIAH. Continue with aspirin and statin. Monitor LFTs while on statin. He was also found to have Streptococcus viridian in blood cultures for which he is on iv antibiotics. Repeat cultures have been negative. Echocardiogram was done which could not rule out septic vegetations of the aortic valve. Family is still not available to give consent for TAHIR. Continue with iv antibiotics as per ID; will need 4-6 weeks total with weekly CBC, CMP, ESR, and CRP. CT abd/pelvis showed new colonic mass and possible metastatic disease to the liver. GI planned for sigmoidoscopy however again family is not available to give consent for procedure. He is on norvasc and lisinopril for hypertension. He is on insulin ss and levemir for diabetes. Will follow up with social worker clinical tomorrow regarding updates. Sixto Galo MD Hospitalist.
[2017-12-19 07:33] LABS: BASO # 0.05 K/mm3 (0.0-2.0); BASO % 0.5 % (0.0-3.0); EOS # 0.1 (0.0-0.7); GRAN # 5.19 (1.4-6.5); GRAN % 56.1 % (50.0-68.0); HEMOGLOBIN 13.5 g/dL (14.0-18.0); LYMPH % 32.5 % (22.0-35.0); MEAN CELL VOLUME 86.1 fl (80.0-105.0); MEAN CORPUSCULAR HEMOGLOBIN 28.4 pg (25.0-35.0); MEAN CORPUSCULAR HGB CONC 32.9 g/dl (31.0-37.0); MONO # 0.9 (0.1-0.6); MONO % 9.9 % (1.0-6.0); RBC 4.76 10^6/uL (3.5-6.1); RED CELL DISTRIBUTION WIDTH 16.4 % (11.5-14.5); WHITE BLOOD COUNT 9.3 10^3/ul (4.5-11.0)
[2017-12-19 07:42] LABS: ALBUMIN 3.6 g/dL (3.0-4.8); ALT/SGPT 43 U/L (7-56); AST/SGOT 32 U/L (17-59); BLOOD UREA NITROGEN 16 mg/dL (7-21); CALCIUM 10.1 mg/dL (8.4-10.5); GFR NON-AFRICAN AMERICAN > 60
[2017-12-19] MEDS: Acetylcysteine 20% Inhal Soln (4ml) IH SCH ×2 (07:58→20:03)
[2017-12-19] MEDS: Potassium Chloride 20 mEq ER Tab PO SCH ×2 (09:06→17:18)
[2017-12-19] MEDS: Multivitamin With Minerals Tab PO SCH (09:07)
[2017-12-19] MEDS: Pantoprazole 40 mg EC Tab PO SCH (09:07)
[2017-12-19] MEDS: Insulin Reg-HIGH-Coverage SC SCH ×4 (09:07→22:18)
[2017-12-19] MEDS: cefTRIAXone 2 GM IN NS 2 GM/100 ML BAG IVPB SCH (09:08)
[2017-12-19] MEDS: Clotrimazole 1% Top Soln(10 ml) TOP SCH ×2 (09:35→17:18)
[2017-12-19] MEDS: Insulin Detemir 100 units/ml Vial (Levemir) SC SCH (22:17)
[2017-12-20 06:41] LABS: BASO # 0.05 K/mm3 (0.0-2.0); BASO % 0.6 % (0.0-3.0); EOS # 0.1 (0.0-0.7); EOS % 0.8 % (1.5-5.0); GRAN # 3.94 (1.4-6.5); GRAN % 50.9 % (50.0-68.0); HEMOGLOBIN 13.2 g/dL (14.0-18.0); LYMPH # 2.9 (1.2-3.4); LYMPH % 37.6 % (22.0-35.0); MEAN CELL VOLUME 86.5 fl (80.0-105.0); MEAN CORPUSCULAR HEMOGLOBIN 28.2 pg (25.0-35.0); MEAN CORPUSCULAR HGB CONC 32.6 g/dl (31.0-37.0); MONO # 0.8 (0.1-0.6); MONO % 10.1 % (1.0-6.0); RBC 4.68 10^6/uL (3.5-6.1); RED CELL DISTRIBUTION WIDTH 16.4 % (11.5-14.5); WHITE BLOOD COUNT 7.7 10^3/ul (4.5-11.0)
[2017-12-20 07:02] LABS: ALBUMIN 3.6 g/dL (3.0-4.8); ALT/SGPT 36 U/L (7-56); AST/SGOT 36 U/L (17-59); BLOOD UREA NITROGEN 16 mg/dL (7-21); CALCIUM 10.4 mg/dL (8.4-10.5); GFR NON-AFRICAN AMERICAN > 60
[2017-12-20] MEDS: Acetylcysteine 20% Inhal Soln (4ml) IH SCH ×2 (07:21→20:22)
[2017-12-20] MEDS: Levalbuterol 0.63 MG/3 ML Inhal Soln UD IH SCH ×5 (07:25→23:30)
[2017-12-20] MEDS: Multivitamin With Minerals Tab PO SCH (08:47)
[2017-12-20] MEDS: cefTRIAXone 2 GM IN NS 2 GM/100 ML BAG IVPB SCH (09:46)
[2017-12-20] MEDS: Pantoprazole 40 mg EC Tab PO SCH (09:47)
[2017-12-20] MEDS: Insulin Reg-HIGH-Coverage SC SCH ×4 (09:49→22:15)
[2017-12-20] MEDS: Clotrimazole 1% Top Soln(10 ml) TOP SCH ×2 (09:50→17:30)
[2017-12-20] MEDS: Potassium Chloride 20 mEq ER Tab PO SCH ×2 (09:50→17:30)
[2017-12-20] MEDS ORDERED: cefTRIAXone 1 gm 1 GM/100 ML BAG IVPB SCH (10:00)
--- NOTE | 2017-12-20 13:58 | CP.PCM.PN ---
<Ryan White - Last Filed: 12/20/17 13:53> Subjective - Date & Time of Evaluation Date of Evaluation: 12/20/17 Time of Evaluation: 13:54 - Subjective Subjective: Medicine Progress Note: Patient seen and assessed at bedside. No acute events overnight noted by patient or nursing staff. Attempts to contact family members are ongoing. Patient oriented to person and place only and can respond to simple yes or no questioning. Patient denies fever, chills, chest pain, SOB, abdominal pain, N/V/ D/C or burning with urination. Objective - Vital Signs/Intake and Output Vital Signs (last 24 hours): Temp Pulse Resp BP Pulse Ox 97.4 F L 90 20 132/96 H 94 L 12/20/17 09:05 12/20/17 09:05 12/20/17 09:05 12/20/17 09:50 12/20/17 09:05 Intake and Output: 12/20/17 12/20/17 06:59 18:59 Intake Total 660 Output Total 0 Balance 660 - Medications Medications: Current Medications Acetylcysteine (Acetylcysteine 20%) 4 ml IH BIDRESP [facility] Last Admin: 12/20/17 07:21 Dose: Not Given Amlodipine Besylate (Norvasc) 10 mg PO DAILY [facility] Last Admin: 12/20/17 09:50 Dose: 10 mg Aspirin (Ecotrin) 81 mg PO DAILY [facility] Last Admin: 12/20/17 09:49 Dose: 81 mg Atorvastatin Calcium (Lipitor) 20 mg PO DIN [facility] Last Admin: 12/19/17 17:18 Dose: 20 mg Clotrimazole (Lotrimin Af 1%) 0 ml TOP BID [facility] Last Admin: 12/20/17 09:50 Dose: 1 applic Folic Acid (Folic Acid) 1 mg PO DAILY [facility] Last Admin: 12/20/17 09:49 Dose: 1 mg Heparin Sodium (Porcine) (Heparin) 5,000 units SC Q12 [facility] PRN Reason: Protocol Last Admin: 12/20/17 09:49 Dose: 5,000 units Hydralazine HCl (Apresoline) 10 mg IVP Q6 PRN PRN Reason: For SBP > 150 Last Admin: 12/13/17 08:32 Dose: 10 mg Ceftriaxone Sodium (Rocephin 2 Gm Ivpb) 2 gm in 100 mls @ 100 mls/hr IVPB DAILY [facility] PRN Reason: Protocol Last Admin: 12/20/17 09:46 Dose: 100 mls/hr Ibuprofen (Motrin Tab) 400 mg PO Q6H PRN PRN Reason: Fever >100.4 F Last Admin: 12/10/17 23:04 Dose: 400 mg Insulin Detemir (Levemir) 10 unit SC HS [facility] Last Admin: 12/19/17 22:17 Dose: 10 unit Insulin Human Regular (Humulin R High) 0 units SC ACHS [facility] PRN Reason: Protocol Last Admin: 12/20/17 12:05 Dose: 2 units Levalbuterol HCl (Xopenex) 0.63 mg IH [id number] [facility] Last Admin: 12/20/17 11:05 Dose: Not Given Lisinopril (Zestril) 10 mg PO DAILY [facility] Last Admin: 12/20/17 09:48 Dose: 10 mg Multivitamins/Minerals (Therapeutic-M Tab) 1 tab PO 0800 [facility] Last Admin: 12/20/17 08:47 Dose: 1 tab Pantoprazole Sodium (Protonix Ec Tab) 40 mg PO ACB [facility] Last Admin: 12/20/17 09:47 Dose: 40 mg Potassium Chloride (K-Dur 20 Meq Er Tab) 40 meq PO BID [facility] Last Admin: 12/20/17 09:50 Dose: 40 meq Thiamine HCl (Vitamin B1 Tab) 100 mg PO DAILY [facility] Last Admin: 12/20/17 09:48 Dose: 100 mg - Labs Labs: 12/20/17 05:45 12/20/17 05:45 PT 12.5 SECONDS (9.4-12.5) 12/09/17 10:00 INR 1.09 (0.93-1.08) H 12/09/17 10:00 APTT 28.3 Seconds (25.1-36.5) 11/30/17 05:30 - Constitutional Appears: Non-toxic, No Acute Distress - Head Exam Head Exam: ATRAUMATIC, NORMOCEPHALIC - Eye Exam Eye Exam: EOMI, PERRL Pupil Exam: NORMAL ACCOMODATION, PERRL - ENT Exam ENT Exam: Mucous Membranes Moist - Neck Exam Neck Exam: Full ROM. absent: Lymphadenopathy, Meningismus - Respiratory Exam Respiratory Exam: Clear to Ausculation Bilateral, NORMAL BREATHING PATTERN. absent: Accessory Muscle Use, Rales, Rhonchi, Wheezes, Respiratory Distress - Cardiovascular Exam Cardiovascular Exam: REGULAR RHYTHM, RRR, +S1, +S2. absent: Bradycardia, Tachycardia - GI/Abdominal Exam GI & Abdominal Exam: Soft, Normal Bowel Sounds. absent: Distended, Firm, Guarding, Rigid, Tenderness, Rebound - Extremities Exam Extremities Exam: Full ROM, Normal Capillary Refill. absent: Calf Tenderness, Joint Swelling, Pedal Edema, Tenderness - Back Exam Back Exam: NORMAL INSPECTION - Neurological Exam Neurological Exam: Alert, Awake. absent: Oriented x3 (Alert to person and place only) - Skin Skin Exam: Dry, Intact, Normal Color, Warm Additional comments: RLE wound dressing clean, dry and intact Assessment and Plan - Assessment and Plan (Free Text) Assessment: 57 year old male with an unknown past medical history who was brought in by ambulance after being found with an AMS and covered in feces in his apartment. His mental status has progressively improved since admission. He is currently on IV Rocephin for coagulase negative staph and strep viridans bacteremia, with repeat blood cultures negative. An echo with bubble study couldn't rule out septic vegetations of the aortic valve. ID is following and recommends continuing antibiotics for 4-6 weeks. Cardiology was consulted for TAHIR evaluation to rule out endocarditis and septic vegetations. An MRI Brain showed acute vs. subacute lacunar infarct in the left parietal region. Neurology is following and patient is on stroke prevention medication. Patient was found to have new colonic mass and multifocal pneumonia on CT chest/abdomen/pelvis and concerns for metastatic disease of the liver on abdominal ultrasound. GI was consulted. Flexible sigmoidoscopy/Colonoscopy and TAHIR to be done when consent can be obtained. Plan: 1. Toxic-Metabolic Encephalopathy secondary to Strep Viridans/Coag Neg Staph Bacteremia -Repeat blood cultures negative -Continue IV Rocephin (Day 8) for 4-6 weeks -Continue Motrin 400mg Q6 PRN for fever -Weekly ESR and CRP -TAHIR to be done when consent can be obtained -Cardiology, Neurology and ID consulted, all recommendations appreciated -PT/OT recommending JOSIAH upon discharge 2. Colonic Neoplasm -Flexible sigmoidoscopy/Colonoscopy to be done when consent can be obtained -GI consulted, all recommendations appreciated 3. Multifocal Pneumonia -Continue IV Rocephin (Day 8) -Continue Xopenex [id number] and continued Mucormyst BID 4. Ischemic Stroke -Continue ASA 81mg and Lipitor 20mg 5. History of Alcohol Abuse/Withdrawal -PO Folate, Thiamine, and MV supplementation -Fall, Seizure and Aspiration precautions 6. DM2 -SSI-High and Accuchecks ACHS -Levemir 10u HS -Carb Consistent Diet 7. HTN -Continue Lisinopril 10mg, Norvasc 10mg PO daily and hydralazine 10mg IVP Q6 PRN 8. Stage 2 Sacral Decubitus Ulcers with associated Cellulitis -Continue Lotrimin AF 1% ointment -Continue wound care and Q2 repositioning -OOB to chair 9. Hypokalemia -Currently within normal limits -Continue daily supplementation with KCl 40meq BID GI Prophylaxis: Protonix DVT Prophylaxis: Heparin and SCD's Patient seen and case discussed with attending, Dr. Schumacher. <Deanna Schumacher - Last Filed: 12/21/17 17:03> Objective - Vital Signs/Intake and Output Vital Signs (last 24 hours): Temp Pulse Resp BP Pulse Ox 98.4 F 100 H 20 129/83 96 12/21/17 08:41 12/21/17 09:47 12/21/17 08:41 12/21/17 09:48 12/21/17 08:41 Intake and Output: 12/21/17 12/21/17 06:59 18:59 Intake Total 840 975 Balance 840 975 - Medications Medications: Current Medications Acetylcysteine (Acetylcysteine 20%) 4 ml IH BIDRESP [facility] Last Admin: 12/21/17 07:20 Dose: Not Given Amlodipine Besylate (Norvasc) 10 mg PO DAILY [facility] Last Admin: 12/21/17 09:48 Dose: 10 mg Aspirin (Ecotrin) 81 mg PO DAILY [facility] Last Admin: 12/21/17 09:48 Dose: 81 mg Atorvastatin Calcium (Lipitor) 20 mg PO DIN [facility] Last Admin: 12/20/17 17:30 Dose: 20 mg Clotrimazole (Lotrimin Af 1%) 0 ml TOP BID [facility] Last Admin: 12/21/17 09:48 Dose: 1 applic Folic Acid (Folic Acid) 1 mg PO DAILY [facility] Last Admin: 12/21/17 09:47 Dose: 1 mg Heparin Sodium (Porcine) (Heparin) 5,000 units SC Q12 [facility] PRN Reason: Protocol Last Admin: 12/21/17 09:46 Dose: 5,000 units Hydralazine HCl (Apresoline) 10 mg IVP Q6 PRN PRN Reason: For SBP > 150 Last Admin: 12/13/17 08:32 Dose: 10 mg Ceftriaxone Sodium (Rocephin 2 Gm Ivpb) 2 gm in 100 mls @ 100 mls/hr IVPB DAILY [facility] PRN Reason: Protocol Last Admin: 12/21/17 09:48 Dose: 100 mls/hr Ibuprofen (Motrin Tab) 400 mg PO Q6H PRN PRN Reason: Fever >100.4 F Last Admin: 12/10/17 23:04 Dose: 400 mg Insulin Detemir (Levemir) 10 unit SC HS [facility] Last Admin: 12/20/17 22:15 Dose: 10 unit Insulin Human Regular (Humulin R High) 0 units SC ACHS [facility] PRN Reason: Protocol Last Admin: 12/21/17 13:51 Dose: 4 units Levalbuterol HCl (Xopenex) 0.63 mg IH [id number] [facility] Last Admin: 12/21/17 15:47 Dose: Not Given Lisinopril (Zestril) 10 mg PO DAILY [facility] Last Admin: 12/21/17 09:47 Dose: 10 mg Multivitamins/Minerals (Therapeutic-M Tab) 1 tab PO 0800 [facility] Last Admin: 12/21/17 09:47 Dose: 1 tab Pantoprazole Sodium (Protonix Ec Tab) 40 mg PO ACB [facility] Last Admin: 12/21/17 09:47 Dose: 40 mg Potassium Chloride (K-Dur 20 Meq Er Tab) 40 meq PO BID [facility] Last Admin: 12/21/17 09:46 Dose: 40 meq Thiamine HCl (Vitamin B1 Tab) 100 mg PO DAILY [facility] Last Admin: 12/21/17 09:48 Dose: 100 mg - Labs Labs: 12/21/17 05:44 12/21/17 05:44 PT 12.5 SECONDS (9.4-12.5) 12/09/17 10:00 INR 1.09 (0.93-1.08) H 12/09/17 10:00 APTT 28.3 Seconds (25.1-36.5) 11/30/17 05:30 Attending/Attestation - Attestation I have personally seen and examined this patient.: Yes I have fully participated in the care of the patient.: Yes I have reviewed all pertinent clinical information, including history, physical exam and plan: Yes Notes (Text): 12/21/17 17:02 Medical record note made by the resident after discussion with my direction and input after the patient was personally seen and examined by me. I have reviewed the chart and agree that the record accurately reflects by personal performance of the history, physical exam, data review, and medical decision-making, in the course for the patient. I have also personally directed the plan of care. Patient is afebrile, stable at base line.We will continue current management. Case management is working on disposition.
--- NOTE | 2017-12-20 16:53 | CP.PCM.PN ---
Subjective - Date & Time of Evaluation Date of Evaluation: 12/20/17 Time of Evaluation: 10:15 - Subjective Subjective: Comfortable, no fevers, not in distress. Objective - Vital Signs/Intake and Output Vital Signs (last 24 hours): Temp Pulse Resp BP Pulse Ox 97.8 F 99 H 20 127/84 91 L 12/18/17 16:10 12/18/17 16:10 12/18/17 16:10 12/18/17 16:10 12/18/17 16:10 Intake and Output: 12/18/17 12/18/17 06:59 18:59 Intake Total 600 Balance 600 - Medications Medications: Current Medications Acetylcysteine (Acetylcysteine 20%) 4 ml IH BIDRESP [facility] Last Admin: 12/18/17 07:57 Dose: 4 ml Amlodipine Besylate (Norvasc) 10 mg PO DAILY [facility] Last Admin: 12/18/17 11:09 Dose: 10 mg Aspirin (Ecotrin) 81 mg PO DAILY [facility] Last Admin: 12/18/17 11:08 Dose: 81 mg Atorvastatin Calcium (Lipitor) 20 mg PO DIN [facility] Last Admin: 12/17/17 17:54 Dose: 20 mg Clotrimazole (Lotrimin Af 1%) 0 ml TOP BID [facility] Last Admin: 12/18/17 11:12 Dose: 1 applic Folic Acid (Folic Acid) 1 mg PO DAILY [facility] Last Admin: 12/18/17 11:09 Dose: 1 mg Heparin Sodium (Porcine) (Heparin) 5,000 units SC Q12 [facility] PRN Reason: Protocol Last Admin: 12/18/17 11:11 Dose: 5,000 units Hydralazine HCl (Apresoline) 10 mg IVP Q6 PRN PRN Reason: For SBP > 150 Last Admin: 12/13/17 08:32 Dose: 10 mg Ceftriaxone Sodium (Rocephin 2 Gm Ivpb) 2 gm in 100 mls @ 100 mls/hr IVPB DAILY [facility] PRN Reason: Protocol Last Admin: 12/18/17 11:12 Dose: 100 mls/hr Ibuprofen (Motrin Tab) 400 mg PO Q6H PRN PRN Reason: Fever >100.4 F Last Admin: 12/10/17 23:04 Dose: 400 mg Insulin Detemir (Levemir) 10 unit SC HS [facility] Last Admin: 12/17/17 21:46 Dose: 10 unit Insulin Human Regular (Humulin R High) 0 units SC ACHS [facility] PRN Reason: Protocol Last Admin: 12/18/17 16:36 Dose: 7 units Levalbuterol HCl (Xopenex) 0.63 mg IH [id number] [facility] Last Admin: 12/18/17 16:15 Dose: Not Given Lisinopril (Zestril) 10 mg PO DAILY [facility] Last Admin: 12/18/17 11:09 Dose: 10 mg Multivitamins/Minerals (Therapeutic-M Tab) 1 tab PO 0800 [facility] Last Admin: 12/18/17 08:50 Dose: 1 tab Pantoprazole Sodium (Protonix Ec Tab) 40 mg PO ACB [facility] Last Admin: 12/18/17 08:50 Dose: 40 mg Potassium Chloride (K-Dur 20 Meq Er Tab) 40 meq PO BID [facility] Last Admin: 12/18/17 11:09 Dose: 40 meq Thiamine HCl (Vitamin B1 Tab) 100 mg PO DAILY [facility] Last Admin: 12/18/17 11:09 Dose: 100 mg - Labs Labs: 12/18/17 06:30 12/18/17 06:30 PT 12.5 SECONDS (9.4-12.5) 12/09/17 10:00 INR 1.09 (0.93-1.08) H 12/09/17 10:00 APTT 28.3 Seconds (25.1-36.5) 11/30/17 05:30 - Constitutional Appears: Chronically Ill - Head Exam Head Exam: NORMAL INSPECTION - Neck Exam Neck Exam: absent: Meningismus - Respiratory Exam Respiratory Exam: Decreased Breath Sounds - Cardiovascular Exam Cardiovascular Exam: +S1, +S2 - GI/Abdominal Exam GI & Abdominal Exam: Soft. absent: Tenderness Assessment and Plan - Assessment and Plan (Free Text) Plan: Assessment sepsis due to strep viridans and CoNS bacteremia from right gluteal and back cellulitis S/P multifocal HCAP on top of Influenza A infection R/O Sammie infection of sacral area as well Plan S/P 7 days of Vancomycin and Merrem; S/P Tamiflu; continue Rocephin for the Strep viridans bacteremia (would continue 4-6 weeks of Rocephin with weekly ESR , CRP, CBC, CMP) - unable to do TAHIR since patient unable to give consent and patient does not have family to give consent - discussed with Dr. Schumacher previously will continue to follow clinically
[2017-12-20] MEDS: Insulin Detemir 100 units/ml Vial (Levemir) SC SCH (22:15)
[2017-12-21] MEDS: Levalbuterol 0.63 MG/3 ML Inhal Soln UD IH SCH ×6 (04:00→23:21)
[2017-12-21 07:07] LABS: ALB/GLOB RATIO 1.1 (1.1-1.8); ALBUMIN 3.8 g/dL (3.0-4.8); ALT/SGPT 37 U/L (7-56); AST/SGOT 42 U/L (17-59); BLOOD UREA NITROGEN 17 mg/dL (7-21); CALCIUM 10.4 mg/dL (8.4-10.5); GFR NON-AFRICAN AMERICAN > 60
[2017-12-21] MEDS: Acetylcysteine 20% Inhal Soln (4ml) IH SCH ×2 (07:20→19:38)
[2017-12-21 07:42] LABS: BASO # 0.04 K/mm3 (0.0-2.0); BASO % 0.5 % (0.0-3.0); EOS # 0.1 (0.0-0.7); EOS % 0.8 % (1.5-5.0); GRAN # 3.97 (1.4-6.5); GRAN % 51.1 % (50.0-68.0); HEMOGLOBIN 13.6 g/dL (14.0-18.0); LYMPH # 2.9 (1.2-3.4); LYMPH % 36.9 % (22.0-35.0); MEAN CELL VOLUME 88.2 fl (80.0-105.0); MEAN CORPUSCULAR HEMOGLOBIN 28.8 pg (25.0-35.0); MEAN CORPUSCULAR HGB CONC 32.6 g/dl (31.0-37.0); MEAN PLATELET VOLUME 9.3 fl (7.0-11.0); MONO # 0.8 (0.1-0.6); MONO % 10.7 % (1.0-6.0); RBC 4.73 10^6/uL (3.5-6.1); RED CELL DISTRIBUTION WIDTH 16.6 % (11.5-14.5); WHITE BLOOD COUNT 7.8 10^3/ul (4.5-11.0)
[2017-12-21] MEDS: Potassium Chloride 20 mEq ER Tab PO SCH ×2 (09:46→19:19)
[2017-12-21] MEDS: Pantoprazole 40 mg EC Tab PO SCH (09:47)
[2017-12-21] MEDS: Multivitamin With Minerals Tab PO SCH (09:47)
[2017-12-21] MEDS: cefTRIAXone 2 GM IN NS 2 GM/100 ML BAG IVPB SCH (09:48)
[2017-12-21] MEDS: Clotrimazole 1% Top Soln(10 ml) TOP SCH (09:48)
[2017-12-21] MEDS: Insulin Reg-HIGH-Coverage SC SCH ×4 (09:49→22:16)
--- NOTE | 2017-12-21 11:52 | CP.PCM.PN ---
<Ryan White - Last Filed: 12/21/17 11:48> Subjective - Date & Time of Evaluation Date of Evaluation: 12/21/17 Time of Evaluation: 11:48 - Subjective Subjective: Medicine Progress Note: Patient seen and assessed at bedside. No acute events overnight. Patient oriented to person and place only. Attempts to contact family are ongoing. Patient denies fever, chills, chest pain, SOB, abdominal pain, N/V/D/C or burning with urination. Objective - Vital Signs/Intake and Output Vital Signs (last 24 hours): Temp Pulse Resp BP Pulse Ox 98.4 F 100 H 20 129/83 96 12/21/17 08:41 12/21/17 09:47 12/21/17 08:41 12/21/17 09:48 12/21/17 08:41 Intake and Output: 12/21/17 12/21/17 06:59 18:59 Intake Total 840 Balance 840 - Medications Medications: Current Medications Acetylcysteine (Acetylcysteine 20%) 4 ml IH BIDRESP [facility] Last Admin: 12/21/17 07:20 Dose: Not Given Amlodipine Besylate (Norvasc) 10 mg PO DAILY [facility] Last Admin: 12/21/17 09:48 Dose: 10 mg Aspirin (Ecotrin) 81 mg PO DAILY [facility] Last Admin: 12/21/17 09:48 Dose: 81 mg Atorvastatin Calcium (Lipitor) 20 mg PO DIN [facility] Last Admin: 12/20/17 17:30 Dose: 20 mg Clotrimazole (Lotrimin Af 1%) 0 ml TOP BID [facility] Last Admin: 12/21/17 09:48 Dose: 1 applic Folic Acid (Folic Acid) 1 mg PO DAILY [facility] Last Admin: 12/21/17 09:47 Dose: 1 mg Heparin Sodium (Porcine) (Heparin) 5,000 units SC Q12 [facility] PRN Reason: Protocol Last Admin: 12/21/17 09:46 Dose: 5,000 units Hydralazine HCl (Apresoline) 10 mg IVP Q6 PRN PRN Reason: For SBP > 150 Last Admin: 12/13/17 08:32 Dose: 10 mg Ceftriaxone Sodium (Rocephin 2 Gm Ivpb) 2 gm in 100 mls @ 100 mls/hr IVPB DAILY [facility] PRN Reason: Protocol Last Admin: 12/21/17 09:48 Dose: 100 mls/hr Ibuprofen (Motrin Tab) 400 mg PO Q6H PRN PRN Reason: Fever >100.4 F Last Admin: 12/10/17 23:04 Dose: 400 mg Insulin Detemir (Levemir) 10 unit SC HS [facility] Last Admin: 12/20/17 22:15 Dose: 10 unit Insulin Human Regular (Humulin R High) 0 units SC ACHS [facility] PRN Reason: Protocol Last Admin: 12/21/17 09:49 Dose: Not Given Levalbuterol HCl (Xopenex) 0.63 mg IH [id number] [facility] Last Admin: 12/21/17 11:10 Dose: Not Given Lisinopril (Zestril) 10 mg PO DAILY [facility] Last Admin: 12/21/17 09:47 Dose: 10 mg Multivitamins/Minerals (Therapeutic-M Tab) 1 tab PO 0800 [facility] Last Admin: 12/21/17 09:47 Dose: 1 tab Pantoprazole Sodium (Protonix Ec Tab) 40 mg PO ACB [facility] Last Admin: 12/21/17 09:47 Dose: 40 mg Potassium Chloride (K-Dur 20 Meq Er Tab) 40 meq PO BID [facility] Last Admin: 12/21/17 09:46 Dose: 40 meq Thiamine HCl (Vitamin B1 Tab) 100 mg PO DAILY [facility] Last Admin: 12/21/17 09:48 Dose: 100 mg - Labs Labs: 12/21/17 05:44 12/21/17 05:44 PT 12.5 SECONDS (9.4-12.5) 12/09/17 10:00 INR 1.09 (0.93-1.08) H 12/09/17 10:00 APTT 28.3 Seconds (25.1-36.5) 11/30/17 05:30 - Constitutional Appears: Non-toxic, No Acute Distress - Head Exam Head Exam: ATRAUMATIC, NORMOCEPHALIC - Eye Exam Eye Exam: EOMI, PERRL Pupil Exam: NORMAL ACCOMODATION - ENT Exam ENT Exam: Mucous Membranes Moist, Normal Exam - Neck Exam Neck Exam: Full ROM, Normal Inspection. absent: Lymphadenopathy - Respiratory Exam Respiratory Exam: Clear to Ausculation Bilateral, NORMAL BREATHING PATTERN. absent: Accessory Muscle Use, Chest Wall Tenderness, Decreased Breath Sounds, Prolonged Expiratory Phase, Rales, Rhonchi, Wheezes, Respiratory Distress, Stridor - Cardiovascular Exam Cardiovascular Exam: REGULAR RHYTHM, RRR, +S1, +S2. absent: Bradycardia, Tachycardia - GI/Abdominal Exam GI & Abdominal Exam: Soft, Normal Bowel Sounds. absent: Distended, Firm, Guarding, Rigid, Tenderness, Rebound - Extremities Exam Extremities Exam: Normal Capillary Refill. absent: Calf Tenderness, Joint Swelling, Pedal Edema, Tenderness Additional comments: RLE wound dressing clean, dry and intact - Neurological Exam Neurological Exam: Awake - Skin Skin Exam: Dry, Intact, Normal Color, Warm Assessment and Plan - Assessment and Plan (Free Text) Assessment: 57 year old male with an unknown past medical history who was brought in by ambulance after being found with an AMS and covered in feces in his apartment. His mental status has progressively improved since admission. He is currently on IV Rocephin for coagulase negative staph and strep viridans bacteremia, with repeat blood cultures negative. An echo with bubble study couldn't rule out septic vegetations of the aortic valve. ID is following and recommends continuing antibiotics for 4-6 weeks. Cardiology was consulted for TAHIR evaluation to rule out endocarditis and septic vegetations. An MRI Brain showed acute vs. subacute lacunar infarct in the left parietal region. Neurology is following and patient is on stroke prevention medication. Patient was found to have new colonic mass and multifocal pneumonia on CT chest/abdomen/pelvis and concerns for metastatic disease of the liver on abdominal ultrasound. GI was consulted. Flexible sigmoidoscopy/Colonoscopy and TAHIR to be done when consent can be obtained. Plan: 1. Toxic-Metabolic Encephalopathy secondary to Strep Viridans/Coag Neg Staph Bacteremia -Repeat blood cultures negative -Continue IV Rocephin (Day 9) for 4-6 weeks -Continue Motrin 400mg Q6 PRN for fever -Weekly ESR and CRP -TAHIR to be done when consent can be obtained -Cardiology, Neurology and ID consulted, all recommendations appreciated -PT/OT recommending JOSIAH upon discharge 2. Colonic Neoplasm -Flexible sigmoidoscopy/Colonoscopy to be done when consent can be obtained -GI consulted, all recommendations appreciated 3. Multifocal Pneumonia -Continue IV Rocephin (Day 9) -Continue supplemental oxygen as needed -Continue Xopenex [id number] and continued Mucormyst BID 4. Ischemic Stroke -Continue ASA 81mg and Lipitor 20mg 5. History of Alcohol Abuse/Withdrawal -PO Folate, Thiamine, and MV supplementation -Fall, Seizure and Aspiration precautions 6. DM2 -SSI-High and Accuchecks ACHS -Levemir 10u HS -Carb Consistent Diet 7. HTN -Continue Lisinopril 10mg, Norvasc 10mg PO daily and Hydralazine 10mg IVP Q6 PRN 8. Stage 2 Sacral Decubitus Ulcers with associated Cellulitis -Continue Lotrimin AF 1% ointment -Continue wound care and Q2 repositioning -OOB to chair 9. Hypokalemia -Currently within normal limits -Continue daily supplementation with KCl 40meq BID GI Prophylaxis: Protonix DVT Prophylaxis: Heparin and SCD's Patient seen and case discussed with attending, Dr. Schumacher. <Deanna Schumacher - Last Filed: 12/21/17 17:04> Objective - Vital Signs/Intake and Output Vital Signs (last 24 hours): Temp Pulse Resp BP Pulse Ox 98.4 F 100 H 20 129/83 96 12/21/17 08:41 12/21/17 09:47 12/21/17 08:41 12/21/17 09:48 12/21/17 08:41 Intake and Output: 12/21/17 12/21/17 06:59 18:59 Intake Total 840 975 Balance 840 975 - Medications Medications: Current Medications Acetylcysteine (Acetylcysteine 20%) 4 ml IH BIDRESP [facility] Last Admin: 12/21/17 07:20 Dose: Not Given Amlodipine Besylate (Norvasc) 10 mg PO DAILY [facility] Last Admin: 12/21/17 09:48 Dose: 10 mg Aspirin (Ecotrin) 81 mg PO DAILY [facility] Last Admin: 12/21/17 09:48 Dose: 81 mg Atorvastatin Calcium (Lipitor) 20 mg PO DIN [facility] Last Admin: 12/20/17 17:30 Dose: 20 mg Clotrimazole (Lotrimin Af 1%) 0 ml TOP BID [facility] Last Admin: 12/21/17 09:48 Dose: 1 applic Folic Acid (Folic Acid) 1 mg PO DAILY [facility] Last Admin: 12/21/17 09:47 Dose: 1 mg Heparin Sodium (Porcine) (Heparin) 5,000 units SC Q12 [facility] PRN Reason: Protocol Last Admin: 12/21/17 09:46 Dose: 5,000 units Hydralazine HCl (Apresoline) 10 mg IVP Q6 PRN PRN Reason: For SBP > 150 Last Admin: 12/13/17 08:32 Dose: 10 mg Ceftriaxone Sodium (Rocephin 2 Gm Ivpb) 2 gm in 100 mls @ 100 mls/hr IVPB DAILY [facility] PRN Reason: Protocol Last Admin: 12/21/17 09:48 Dose: 100 mls/hr Ibuprofen (Motrin Tab) 400 mg PO Q6H PRN PRN Reason: Fever >100.4 F Last Admin: 12/10/17 23:04 Dose: 400 mg Insulin Detemir (Levemir) 10 unit SC HS [facility] Last Admin: 12/20/17 22:15 Dose: 10 unit Insulin Human Regular (Humulin R High) 0 units SC ACHS [facility] PRN Reason: Protocol Last Admin: 12/21/17 13:51 Dose: 4 units Levalbuterol HCl (Xopenex) 0.63 mg IH [id number] [facility] Last Admin: 12/21/17 15:47 Dose: Not Given Lisinopril (Zestril) 10 mg PO DAILY [facility] Last Admin: 12/21/17 09:47 Dose: 10 mg Multivitamins/Minerals (Therapeutic-M Tab) 1 tab PO 0800 [facility] Last Admin: 12/21/17 09:47 Dose: 1 tab Pantoprazole Sodium (Protonix Ec Tab) 40 mg PO ACB [facility] Last Admin: 12/21/17 09:47 Dose: 40 mg Potassium Chloride (K-Dur 20 Meq Er Tab) 40 meq PO BID [facility] Last Admin: 12/21/17 09:46 Dose: 40 meq Thiamine HCl (Vitamin B1 Tab) 100 mg PO DAILY [facility] Last Admin: 12/21/17 09:48 Dose: 100 mg - Labs Labs: 12/21/17 05:44 12/21/17 05:44 PT 12.5 SECONDS (9.4-12.5) 12/09/17 10:00 INR 1.09 (0.93-1.08) H 12/09/17 10:00 APTT 28.3 Seconds (25.1-36.5) 11/30/17 05:30 Attending/Attestation - Attestation I have personally seen and examined this patient.: Yes I have fully participated in the care of the patient.: Yes I have reviewed all pertinent clinical information, including history, physical exam and plan: Yes Notes (Text): 12/21/17 17:04 Medical record note made by the resident after discussion with my direction and input after the patient was personally seen and examined by me. I have reviewed the chart and agree that the record accurately reflects by personal performance of the history, physical exam, data review, and medical decision-making, in the course for the patient. I have also personally directed the plan of care.
[2017-12-21] MEDS: Insulin Detemir 100 units/ml Vial (Levemir) SC SCH (22:16)
--- NOTE | 2017-12-21 23:11 | PN ---
DATE: SUBJECTIVE: Patient is seen in bed, in no acute distress, nontoxic. PHYSICAL EXAMINATION: VITAL SIGNS: Temperature is 98, blood pressure is 129/80, respiratory rate of 20, heart rate of 100. HEENT: Unremarkable. NECK: Supple. LUNGS: Decreased breath sounds. HEART: Normal S1 and S2. ABDOMEN: Soft, nontender. LABORATORY DATA: Reveals a white count of 7.8, hemoglobin of 13, platelets of 409. Chemistries reveals a BUN of 17, creatinine of 0.6, and procalcitonin is noted and vancomycin trough is noted to be 10. Serology for influenza is positive. Review of the orders reveals the patient to be on ceftriaxone. ASSESSMENT AND PLAN: This is a 57-year-old male, who was seen in [address], bed 1 earlier this morning and with sepsis due to streptococcus viridans and coagulase-negative Staphylococcus bacteremia from the right gluteal and back cellulitis and multifocal healthcare-associated pneumonia on top of influenza A infection, status post alley infection, sacral area, 7 days of vancomycin, meropenem, and Tamiflu, currently on ceftriaxone for streptococcus viridans bacteremia. Currently on ceftriaxone and we will continue with you following weekly CBC, sed rate, C-reactive protein therapy started when the blood cultures became negative, which was 11/30/2017. Dr. Deanna Schumacher's note is reviewed. Today is day #21 of 28 days. Daniel Torres MD
[2017-12-22] MEDS: Levalbuterol 0.63 MG/3 ML Inhal Soln UD IH SCH ×5 (03:54→21:20)
[2017-12-22] MEDS: Acetylcysteine 20% Inhal Soln (4ml) IH SCH ×2 (07:16→21:20)
[2017-12-22] MEDS: Insulin Reg-HIGH-Coverage SC SCH ×4 (07:46→21:55)
[2017-12-22] MEDS: Pantoprazole 40 mg EC Tab PO SCH (07:47)
[2017-12-22] MEDS: Multivitamin With Minerals Tab PO SCH (08:47)
[2017-12-22] MEDS: Potassium Chloride 20 mEq ER Tab PO SCH ×2 (10:29→18:01)
[2017-12-22] MEDS: Clotrimazole 1% Top Soln(10 ml) TOP SCH ×2 (10:31→18:02)
[2017-12-22] MEDS: cefTRIAXone 2 GM IN NS 2 GM/100 ML BAG IVPB SCH (10:31)
--- NOTE | 2017-12-22 12:47 | CP.PCM.PN ---
<Ryan White - Last Filed: 12/22/17 12:41> Subjective - Date & Time of Evaluation Date of Evaluation: 12/22/17 Time of Evaluation: 12:41 - Subjective Subjective: Medicine Progress Note: Patient seen and assessed at bedside. Patient was noted to have a fingerstick blood glucose of 499 and was given a stat dose of both Humulin and Levemir with resolution of the hyperglycemia. Patient oriented to person and place only. Patient denies fever, chills, chest pain, SOB, abdominal pain, N/V/D/C or burning with urination. Objective - Vital Signs/Intake and Output Vital Signs (last 24 hours): Temp Pulse Resp BP Pulse Ox 98.2 F 98 H 20 120/80 93 L 12/22/17 08:13 12/22/17 08:13 12/22/17 08:13 12/22/17 10:31 12/22/17 08:13 Intake and Output: 12/22/17 12/22/17 06:59 18:59 Intake Total 780 Balance 780 - Medications Medications: Current Medications Acetylcysteine (Acetylcysteine 20%) 4 ml IH BIDRESP [facility] Last Admin: 12/22/17 07:16 Dose: Not Given Amlodipine Besylate (Norvasc) 10 mg PO DAILY [facility] [place] Last Admin: 12/22/17 10:31 Dose: 10 mg Aspirin (Ecotrin) 81 mg PO DAILY [facility] [place] Last Admin: 12/22/17 10:29 Dose: 81 mg Atorvastatin Calcium (Lipitor) 20 mg PO DIN [facility] [place] Last Admin: 12/21/17 19:19 Dose: 20 mg Clotrimazole (Lotrimin Af 1%) 0 ml TOP BID [facility] [place] Last Admin: 12/22/17 10:31 Dose: 1 applic Folic Acid (Folic Acid) 1 mg PO DAILY [facility] [place] Last Admin: 12/22/17 10:29 Dose: 1 mg Heparin Sodium (Porcine) (Heparin) 5,000 units SC Q12 [facility]I PRN Reason: Protocol Last Admin: 12/22/17 10:29 Dose: 5,000 units Hydralazine HCl (Apresoline) 10 mg IVP Q6 PRN PRN Reason: For SBP > 150 Last Admin: 12/13/17 08:32 Dose: 10 mg Ceftriaxone Sodium (Rocephin 2 Gm Ivpb) 2 gm in 100 mls @ 100 mls/hr IVPB DAILY [facility] PRN Reason: Protocol Last Admin: 12/22/17 10:31 Dose: 100 mls/hr Ibuprofen (Motrin Tab) 400 mg PO Q6H PRN PRN Reason: Fever >100.4 F Last Admin: 12/10/17 23:04 Dose: 400 mg Insulin Detemir (Levemir) 10 unit SC HS [facility] [place] Last Admin: 12/21/17 22:16 Dose: 10 unit Insulin Human Regular (Humulin R High) 0 units SC ACHS [facility] PRN Reason: Protocol Last Admin: 12/22/17 12:04 Dose: 2 units Levalbuterol HCl (Xopenex) 0.63 mg IH [id number] [facility] Last Admin: 12/22/17 07:16 Dose: Not Given Lisinopril (Zestril) 10 mg PO DAILY [facility] [place] Last Admin: 12/22/17 10:32 Dose: 10 mg Lorazepam (Ativan) 0.5 mg PO TID [facility] [place] PRN Reason: Protocol Last Admin: 12/22/17 10:28 Dose: 0.5 mg Multivitamins/Minerals (Therapeutic-M Tab) 1 tab PO 0800 [facility] [place] Last Admin: 12/22/17 08:47 Dose: 1 tab Pantoprazole Sodium (Protonix Ec Tab) 40 mg PO ACB [facility] [place] Last Admin: 12/22/17 07:47 Dose: 40 mg Potassium Chloride (K-Dur 20 Meq Er Tab) 40 meq PO BID [facility] [place] Last Admin: 12/22/17 10:29 Dose: 40 meq Quetiapine Fumarate (Seroquel) 12.5 mg PO HS [facility] PRN Reason: Protocol Thiamine HCl (Vitamin B1 Tab) 100 mg PO DAILY [facility] [place] Last Admin: 12/22/17 10:32 Dose: 100 mg Ziprasidone (Geodon Inj) 10 mg IM BID PRN; Protocol PRN Reason: agitaiton/psychosis - Labs Labs: 12/21/17 05:44 12/21/17 05:44 PT 12.5 SECONDS (9.4-12.5) 12/09/17 10:00 INR 1.09 (0.93-1.08) H 12/09/17 10:00 APTT 28.3 Seconds (25.1-36.5) 11/30/17 05:30 - Constitutional Appears: Non-toxic, No Acute Distress - Head Exam Head Exam: ATRAUMATIC, NORMOCEPHALIC - Eye Exam Eye Exam: EOMI, PERRL Pupil Exam: NORMAL ACCOMODATION, PERRL - ENT Exam ENT Exam: Mucous Membranes Moist, Normal Exam - Neck Exam Neck Exam: Full ROM, Normal Inspection. absent: Lymphadenopathy - Respiratory Exam Respiratory Exam: Clear to Ausculation Bilateral, NORMAL BREATHING PATTERN. absent: Rales, Rhonchi, Wheezes, Respiratory Distress - Cardiovascular Exam Cardiovascular Exam: REGULAR RHYTHM, RRR, +S1, +S2. absent: Bradycardia, Tachycardia - GI/Abdominal Exam GI & Abdominal Exam: Soft, Normal Bowel Sounds. absent: Tenderness - Extremities Exam Extremities Exam: Normal Capillary Refill. absent: Calf Tenderness, Joint Swelling, Pedal Edema, Tenderness - Neurological Exam Neurological Exam: Alert, Awake. absent: Oriented x3 - Skin Skin Exam: Dry, Intact, Normal Color, Warm Additional comments: RLE wound dressing clean, dry and intact Assessment and Plan - Assessment and Plan (Free Text) Assessment: 57 year old male with an unknown past medical history who was brought in by ambulance after being found with an AMS and covered in feces in his apartment. His mental status has progressively improved since admission. He is currently on IV Rocephin for coagulase negative staph and strep viridans bacteremia, with repeat blood cultures negative. An echo with bubble study couldn't rule out septic vegetations of the aortic valve. ID is following and recommends continuing antibiotics for 4-6 weeks. Cardiology was consulted for TAHIR evaluation to rule out endocarditis and septic vegetations. An MRI Brain showed acute vs. subacute lacunar infarct in the left parietal region. Neurology is following and patient is on stroke prevention medication. Patient was found to have new colonic mass and multifocal pneumonia on CT chest/abdomen/pelvis and concerns for metastatic disease of the liver on abdominal ultrasound. GI was consulted. Flexible sigmoidoscopy/Colonoscopy and TAHIR to be done when consent can be obtained. Plan: 1. Toxic-Metabolic Encephalopathy secondary to Strep Viridans/Mitis and Coag Neg Staph Bacteremia -Repeat blood cultures negative -Day 13 of IV antiobiotic therapy since most recent negative blood culture with 4-6 weeks of total therapy indicated -Continue IV Rocephin (Day 10) -Continue Motrin 400mg Q6 PRN for fever -Weekly ESR and CRP -TAHIR to be done when consent can be obtained -Psychiatry consulted to determine decision making capacity -Cardiology, Neurology and ID consulted, all recommendations appreciated -PT/OT recommending JOSIAH upon discharge 2. Colonic Neoplasm -Flexible sigmoidoscopy/Colonoscopy to be done when consent can be obtained -GI consulted, all recommendations appreciated 3. Multifocal Pneumonia -Continue IV Rocephin (Day 10) -Continue supplemental oxygen as needed -Continue Xopenex [id number] and continued Mucormyst BID 4. Ischemic Stroke -Continue ASA 81mg and Lipitor 20mg 5. History of Alcohol Abuse/Withdrawal -PO Folate, Thiamine, and MV supplementation -Fall, Seizure and Aspiration precautions 6. DM2 -SSI-High and Accuchecks ACHS -Levemir 10u HS -Carb Consistent Diet 7. HTN -Continue Lisinopril 10mg, Norvasc 10mg PO daily and Hydralazine 10mg IVP Q6 PRN 8. Stage 2 Sacral Decubitus Ulcers with associated Cellulitis -Continue Lotrimin AF 1% ointment -Continue wound care and Q2 repositioning -OOB to chair 9. Hypokalemia -Currently within normal limits -Continue daily supplementation with KCl 40meq BID GI Prophylaxis: Protonix DVT Prophylaxis: Heparin and SCD's Patient seen and case discussed with attending, Dr. Schumacher. <Deanna Schumacher - Last Filed: 12/22/17 13:42> Objective - Vital Signs/Intake and Output Vital Signs (last 24 hours): Temp Pulse Resp BP Pulse Ox 98.2 F 98 H 20 120/80 93 L 12/22/17 08:13 12/22/17 08:13 12/22/17 08:13 12/22/17 10:31 12/22/17 08:13 Intake and Output: 12/22/17 12/22/17 06:59 18:59 Intake Total 780 Balance 780 - Medications Medications: Current Medications Acetylcysteine (Acetylcysteine 20%) 4 ml IH BIDRESP [facility] Last Admin: 12/22/17 07:16 Dose: Not Given Amlodipine Besylate (Norvasc) 10 mg PO DAILY [facility] [place] Last Admin: 12/22/17 10:31 Dose: 10 mg Aspirin (Ecotrin) 81 mg PO DAILY [facility] [place] Last Admin: 12/22/17 10:29 Dose: 81 mg Atorvastatin Calcium (Lipitor) 20 mg PO DIN [facility] Last Admin: 12/21/17 19:19 Dose: 20 mg Clotrimazole (Lotrimin Af 1%) 0 ml TOP BID [facility] [place] Last Admin: 12/22/17 10:31 Dose: 1 applic Folic Acid (Folic Acid) 1 mg PO DAILY [facility] [place] Last Admin: 12/22/17 10:29 Dose: 1 mg Heparin Sodium (Porcine) (Heparin) 5,000 units SC Q12 [facility]OLI PRN Reason: Protocol Last Admin: 12/22/17 10:29 Dose: 5,000 units Hydralazine HCl (Apresoline) 10 mg IVP Q6 PRN PRN Reason: For SBP > 150 Last Admin: 12/13/17 08:32 Dose: 10 mg Ceftriaxone Sodium (Rocephin 2 Gm Ivpb) 2 gm in 100 mls @ 100 mls/hr IVPB DAILY [facility] PRN Reason: Protocol Last Admin: 12/22/17 10:31 Dose: 100 mls/hr Ibuprofen (Motrin Tab) 400 mg PO Q6H PRN PRN Reason: Fever >100.4 F Last Admin: 12/10/17 23:04 Dose: 400 mg Insulin Detemir (Levemir) 10 unit SC HS [facility] [place] Last Admin: 12/21/17 22:16 Dose: 10 unit Insulin Human Regular (Humulin R High) 0 units SC ACHS [facility] PRN Reason: Protocol Last Admin: 12/22/17 12:04 Dose: 2 units Levalbuterol HCl (Xopenex) 0.63 mg IH [id number] [facility] Last Admin: 12/22/17 13:19 Dose: Not Given Lisinopril (Zestril) 10 mg PO DAILY [facility] Last Admin: 12/22/17 10:32 Dose: 10 mg Lorazepam (Ativan) 0.5 mg PO TID [facility] PRN Reason: Protocol Last Admin: 12/22/17 10:28 Dose: 0.5 mg Multivitamins/Minerals (Therapeutic-M Tab) 1 tab PO 0800 [facility] [place] Last Admin: 12/22/17 08:47 Dose: 1 tab Pantoprazole Sodium (Protonix Ec Tab) 40 mg PO ACB [facility] [place] Last Admin: 12/22/17 07:47 Dose: 40 mg Potassium Chloride (K-Dur 20 Meq Er Tab) 40 meq PO BID [facility] Last Admin: 12/22/17 10:29 Dose: 40 meq Quetiapine Fumarate (Seroquel) 12.5 mg PO HS [facility] PRN Reason: Protocol Thiamine HCl (Vitamin B1 Tab) 100 mg PO DAILY [facility] Last Admin: 12/22/17 10:32 Dose: 100 mg Ziprasidone (Geodon Inj) 10 mg IM BID PRN; Protocol PRN Reason: agitaiton/psychosis - Labs Labs: 12/21/17 05:44 12/21/17 05:44 PT 12.5 SECONDS (9.4-12.5) 12/09/17 10:00 INR 1.09 (0.93-1.08) H 12/09/17 10:00 APTT 28.3 Seconds (25.1-36.5) 11/30/17 05:30 Attending/Attestation - Attestation I have personally seen and examined this patient.: Yes I have fully participated in the care of the patient.: Yes I have reviewed all pertinent clinical information, including history, physical exam and plan: Yes Notes (Text): 12/22/17 13:41 Medical record note made by the resident after discussion with my direction and input after the patient was personally seen and examined by me. I have reviewed the chart and agree that the record accurately reflects by personal performance of the history, physical exam, data review, and medical decision-making, in the course for the patient. I have also personally directed the plan of care.
--- NOTE | 2017-12-22 19:11 | CON ---
DATE: HISTORY OF PRESENT ILLNESS: The patient is a 57-year-old male with not known previous psychiatric history. The patient was admitted on the medical side for evaluation of change in mental status. The patient was found in the apartment with change in mental status full of feces. No family involvement. Psych consult was called for evaluation of the capacity to make decision for himself. The patient was seen and evaluated, discussed with the medical attending Dr. Schumacher. All notes and labs reviewed. MRI was reviewed. The patient was evaluated with the medical terminologist next to him. The patient presented to be alert, but confused. The patient knows that he is in the hospital, but does not know what hospital he is in despite the fact that the patient is here since 10/29/2017. The patient does not know what was the circumstances of his admission to the medical side. The patient also was found to be in catatonic stage, moving very slowly. Speech was underproductive. The patient has masked face and difficult to express himself. The patient had difficulty to name object such as phone, pen as well as [employer] book. The patient was not able to provide any history. This machine sign writer reviewed the previous history. In 2012, the patient had one admission to the emergency room for alcohol consumption. There is no psych consult in the past. No other admissions from the medical side. This machine sign writer reviewed the vital signs. Vital signs seems to be stable. Temperature 98.2, pulse is 98, blood pressure 139/85, respirations 20, oxygen saturations 93. Medications reviewed, N-acetylcysteine, Norvasc, aspirin, Lipitor, Rocephin, Lotrimin, folic acid, heparin, hydralazine, ibuprofen, Levemir. Ativan will be started for catatonia. Multivitamins was started, potassium chloride, thiamine 100 mg daily and Geodon will be started. Labs reviewed. Hematology: Hemoglobin is 13.6, hematocrit 41. Chemistry reviewed. AST and ALT within normal limits. Fecal occult blood is positive. Toxicology: Alcohol in 2013 was 328. Note from the infectious disease reviewed. The patient is on antibiotic. The patient was diagnosed with sepsis, alley infection in sacral area, status post multifocal HCAP on top of influenza A infection. The patient is on vancomycin. Notes from Neurology team also reviewed as well as MRI reviewed. EEG also was done, which showed an abnormal awake and sleepy electroencephalogram, maybe also postictal slowing. Notes from also reviewed. Impression is probably ischemic stroke secondary to sepsis and hypertension and altered mental status secondary to toxic metabolic encephalopathy. MRI showed acute versus subacute lacunar infarct involving watershed area. Prominent white matter abnormality with etiology of metabolic versus demyelination. MENTAL STATUS EXAMINATION: The patient appears to be confused. The patient knows his name, knows that he is in the hospital, but does not know the name of the hospital. No meaningful conversation possible. The patient is in catatonic stage. The patient has difficulty to name objects. Insight and judgment severely impaired. Impulses are unpredictable. The patient was not able to tell what his mood is and there are no signs of psychosis. IMPRESSION: Most likely, the patient is in delirium stage, which seems to be multifactorial and also catatonia cannot be excluded due to general medical condition, metabolic encephalopathy. Also, the patient has alcohol use disorder and the patient is currently on multivitamins, thiamine and folic acid. PLAN: Based on presentation, the patient lacks capacity to make decision for himself. The patient has no basic understanding of his medical diagnosis. He was not able to participate in interview. The patient is disoriented, also in catatonic stage. At present moment, the patient seems to be in delirium stage, which affects his decision making capacity. At the same time, this machine sign writer cannot exclude that the patient will improve. This machine sign writer will start small dose of benzodiazepines, Ativan 0.5 mg three times a day scheduled. This machine sign writer also will start p.r.n. medication, Geodon in case of agitation, also Seroquel 12.5 mg to the nighttime was started to clear his sensorium. [employer] are working to find the patient's family. Based on the presentation, the patient in delirium stage. We will follow up and advise accordingly. The patient needs to be followed up with Neurology as well as Infectious Disease. Should you have any questions, give me a call back. Case was discussed with Dr. Schumacher. We will follow up and advise accordingly. Mary Swartz MD [facility] # [phone]
[2017-12-22] MEDS: Insulin Detemir 100 units/ml Vial (Levemir) SC SCH (21:56)
--- NOTE | 2017-12-22 22:11 | PN ---
DATE: 12/22/2017 SUBJECTIVE: The patient is in bed, in no acute distress, nontoxic. The patient was seen early this morning in room 363, bed 1. PHYSICAL EXAMINATION: VITAL SIGNS: Temperature is 98, blood pressure is 109/60, respiratory rate of 18, heart rate of 90. HEENT: Examination of HEENT is unremarkable. NECK: Supple. LUNGS: Have decreased breath sounds. HEART: Normal S1 and S2. ABDOMEN: Soft, nontender. LABORATORY DATA: Laboratory examination reveals a white count of 7.8, hemoglobin of 13 and the chemistries revealed the patient's BUN of 17, creatinine of 0.6. Procalcitonin 0.28. Review of orders reveals the patient to be on ceftriaxone. ASSESSMENT AND PLAN: This is a 57-year-old male who was seen in 363 with sepsis with Streptococcus viridans and coag-negative Staphylococcus bacteremia and right gluteal and back cellulitis, multifocal healthcare-associated pneumonia on top of influenza infection, status post Sammie infection in sacral area. Currently, today is day #22 of 28 days of ceftriaxone. Blood cultures became negative on 11/30/2017. Daniel Torres MD
[2017-12-23] MEDS: Levalbuterol 0.63 MG/3 ML Inhal Soln UD IH SCH ×6 (04:00→19:51)
[2017-12-23 06:27] LABS: BASO # 0.04 K/mm3 (0.0-2.0); BASO % 0.7 % (0.0-3.0); EOS # 0.1 (0.0-0.7); GRAN # 2.76 (1.4-6.5); GRAN % 45.6 % (50.0-68.0); HEMOGLOBIN 12.9 g/dL (14.0-18.0); LYMPH # 2.4 (1.2-3.4); LYMPH % 40.4 % (22.0-35.0); MEAN CELL VOLUME 87.2 fl (80.0-105.0); MEAN CORPUSCULAR HEMOGLOBIN 28.5 pg (25.0-35.0); MEAN CORPUSCULAR HGB CONC 32.7 g/dl (31.0-37.0); MEAN PLATELET VOLUME 9.2 fl (7.0-11.0); MONO # 0.7 (0.1-0.6); MONO % 12.3 % (1.0-6.0); RBC 4.52 10^6/uL (3.5-6.1); RED CELL DISTRIBUTION WIDTH 16.6 % (11.5-14.5)
[2017-12-23 07:06] LABS: ALBUMIN 3.6 g/dL (3.0-4.8); ALT/SGPT 34 U/L (7-56); AST/SGOT 29 U/L (17-59); BLOOD UREA NITROGEN 15 mg/dL (7-21); CALCIUM 10.4 mg/dL (8.4-10.5); GFR NON-AFRICAN AMERICAN > 60
[2017-12-23] MEDS: Acetylcysteine 20% Inhal Soln (4ml) IH SCH ×2 (07:11→19:51)
[2017-12-23] MEDS: cefTRIAXone 2 GM IN NS 2 GM/100 ML BAG IVPB SCH (09:43)
[2017-12-23] MEDS: Potassium Chloride 20 mEq ER Tab PO SCH ×2 (09:44→17:57)
[2017-12-23] MEDS: Pantoprazole 40 mg EC Tab PO SCH (09:44)
[2017-12-23] MEDS: Multivitamin With Minerals Tab PO SCH (09:44)
[2017-12-23] MEDS: Insulin Reg-HIGH-Coverage SC SCH ×4 (09:45→22:00)
[2017-12-23] MEDS: Clotrimazole 1% Top Soln(10 ml) TOP SCH ×2 (09:48→18:05)
--- NOTE | 2017-12-23 12:20 | CP.PCM.PN ---
<Ryan White - Last Filed: 12/23/17 12:26> Subjective - Date & Time of Evaluation Date of Evaluation: 12/23/17 Time of Evaluation: 12:16 - Subjective Subjective: Medicine Progress Note: Patient seen and assessed at bedside. No acute events overnight noted by nursing staff or patient. Patient has no complaints at this time. He denies fever, chills, headache, chest pain, SOB, abdominal pain, N/V/D/C, or pain with urination. Objective - Vital Signs/Intake and Output Vital Signs (last 24 hours): Temp Pulse Resp BP Pulse Ox 98 F 68 19 122/86 96 12/23/17 08:08 12/23/17 09:44 12/23/17 08:08 12/23/17 09:44 12/23/17 08:08 Intake and Output: 12/23/17 12/23/17 06:59 18:59 Intake Total 1020 120 Balance 1020 120 - Medications Medications: Current Medications Acetylcysteine (Acetylcysteine 20%) 4 ml IH BIDRESP [facility] Last Admin: 12/23/17 07:11 Dose: Not Given Amlodipine Besylate (Norvasc) 10 mg PO DAILY [facility] Last Admin: 12/23/17 09:43 Dose: 10 mg Aspirin (Ecotrin) 81 mg PO DAILY [facility] Last Admin: 12/23/17 09:44 Dose: 81 mg Atorvastatin Calcium (Lipitor) 20 mg PO DIN [facility] Last Admin: 12/22/17 18:01 Dose: 20 mg Clotrimazole (Lotrimin Af 1%) 0 ml TOP BID [facility] Last Admin: 12/23/17 09:48 Dose: 1 applic Folic Acid (Folic Acid) 1 mg PO DAILY [facility] Last Admin: 12/23/17 09:44 Dose: 1 mg Heparin Sodium (Porcine) (Heparin) 5,000 units SC Q12 [facility] PRN Reason: Protocol Last Admin: 12/23/17 09:43 Dose: 5,000 units Hydralazine HCl (Apresoline) 10 mg IVP Q6 PRN PRN Reason: For SBP > 150 Last Admin: 12/13/17 08:32 Dose: 10 mg Ceftriaxone Sodium (Rocephin 2 Gm Ivpb) 2 gm in 100 mls @ 100 mls/hr IVPB DAILY [facility] PRN Reason: Protocol Last Admin: 12/23/17 09:43 Dose: 100 mls/hr Ibuprofen (Motrin Tab) 400 mg PO Q6H PRN PRN Reason: Fever >100.4 F Last Admin: 12/10/17 23:04 Dose: 400 mg Insulin Detemir (Levemir) 10 unit SC HS [facility] Last Admin: 12/22/17 21:56 Dose: 10 unit Insulin Human Regular (Humulin R High) 0 units SC ACHS [facility] PRN Reason: Protocol Last Admin: 12/23/17 09:45 Dose: Not Given Levalbuterol HCl (Xopenex) 0.63 mg IH [id number] [facility] Last Admin: 12/23/17 11:15 Dose: Not Given Lisinopril (Zestril) 10 mg PO DAILY [facility] Last Admin: 12/23/17 09:44 Dose: 10 mg Lorazepam (Ativan) 0.5 mg PO BID [facility] PRN Reason: Protocol Multivitamins/Minerals (Therapeutic-M Tab) 1 tab PO 0800 [facility] Last Admin: 12/23/17 09:44 Dose: 1 tab Pantoprazole Sodium (Protonix Ec Tab) 40 mg PO ACB [facility] Last Admin: 12/23/17 09:44 Dose: 40 mg Potassium Chloride (K-Dur 20 Meq Er Tab) 40 meq PO BID [facility] Last Admin: 12/23/17 09:44 Dose: 40 meq Quetiapine Fumarate (Seroquel) 12.5 mg PO HS PRN; Protocol PRN Reason: psychosis, restlessness Thiamine HCl (Vitamin B1 Tab) 100 mg PO DAILY [facility] Last Admin: 12/23/17 09:48 Dose: 100 mg Ziprasidone (Geodon Inj) 10 mg IM BID PRN; Protocol PRN Reason: agitaiton/psychosis - Labs Labs: 12/23/17 05:30 12/23/17 05:30 PT 12.5 SECONDS (9.4-12.5) 12/09/17 10:00 INR 1.09 (0.93-1.08) H 12/09/17 10:00 APTT 28.3 Seconds (25.1-36.5) 11/30/17 05:30 - Constitutional Appears: Non-toxic, No Acute Distress - Head Exam Head Exam: ATRAUMATIC, NORMAL INSPECTION, NORMOCEPHALIC - Eye Exam Eye Exam: EOMI, Normal appearance, PERRL Pupil Exam: NORMAL ACCOMODATION, PERRL - ENT Exam ENT Exam: Mucous Membranes Moist, Normal Exam - Neck Exam Neck Exam: Full ROM, Normal Inspection. absent: Lymphadenopathy - Respiratory Exam Respiratory Exam: Clear to Ausculation Bilateral, NORMAL BREATHING PATTERN. absent: Rales, Rhonchi, Wheezes - Cardiovascular Exam Cardiovascular Exam: REGULAR RHYTHM, RRR, +S1, +S2. absent: Tachycardia - GI/Abdominal Exam GI & Abdominal Exam: Soft, Normal Bowel Sounds. absent: Tenderness - Extremities Exam Extremities Exam: Normal Capillary Refill. absent: Calf Tenderness, Joint Swelling, Normal Inspection, Pedal Edema, Tenderness Additional comments: Two stage 2 decubitus ulcers in right gluteal region and right anal cleft with minimal surrounding erythema that is noted to be improved since admission - Neurological Exam Neurological Exam: Alert, Awake. absent: Oriented x3 - Psychiatric Exam Psychiatric exam: Normal Affect, Normal Mood - Skin Skin Exam: Dry, Intact, Normal Color, Warm Assessment and Plan - Assessment and Plan (Free Text) Assessment: 57 year old male with an unknown past medical history who was brought in by ambulance after being found with an AMS and covered in feces in his apartment. His mental status has progressively improved since admission. He is currently on IV Rocephin for coagulase negative staph and strep viridans bacteremia, with repeat blood cultures negative. An echo with bubble study couldn't rule out septic vegetations of the aortic valve. ID is following and recommends continuing antibiotics for 4-6 weeks. Cardiology was consulted for TAHIR evaluation to rule out endocarditis and septic vegetations. An MRI Brain showed acute vs. subacute lacunar infarct in the left parietal region. Neurology is following and patient is on stroke prevention medication. Patient was found to have new colonic mass and multifocal pneumonia on CT chest/abdomen/pelvis and concerns for metastatic disease of the liver on abdominal ultrasound. GI was consulted. Flexible sigmoidoscopy/Colonoscopy and TAHIR to be done when consent can be obtained. Plan: 1. Toxic-Metabolic Encephalopathy secondary to Strep Viridans/Mitis and Coag Neg Staph Bacteremia -Repeat blood cultures negative -Day 19 of IV antiobiotic therapy since most recent negative blood culture with 4-6 weeks of total therapy indicated -Continue IV Rocephin (Day 11) -Continue Motrin 400mg Q6 PRN for fever -Initiated Geodon PRN for agitation and Seroquel HS to clear sensorium -Weekly ESR and CRP -TAHIR to be done when consent can be obtained -Psychiatry consulted to determine decision making capacity -Cardiology, Neurology and ID consulted, all recommendations appreciated -PT/OT recommending JOSIAH upon discharge 2. Colonic Neoplasm -Flexible sigmoidoscopy/Colonoscopy to be done when consent can be obtained -GI consulted, all recommendations appreciated 3. Multifocal Pneumonia -Continue IV Rocephin (Day 11) -Continue supplemental oxygen as needed -Continue Xopenex [id number] and continued Mucormyst BID 4. Ischemic Stroke -Continue ASA 81mg and Lipitor 20mg 5. History of Alcohol Abuse/Withdrawal -PO Folate, Thiamine, and MV supplementation -Fall, Seizure and Aspiration precautions 6. DM2 -SSI-High and Accuchecks ACHS -Levemir 10u HS -Carb Consistent Diet 7. HTN -Continue Lisinopril 10mg, Norvasc 10mg PO daily and Hydralazine 10mg IVP Q6 PRN 8. Stage 2 Sacral Decubitus Ulcers with associated Cellulitis -Continue Lotrimin AF 1% ointment -Continue wound care and Q2 repositioning -OOB to chair 9. Hypokalemia -Currently within normal limits -Continue daily supplementation with KCl 40meq BID GI Prophylaxis: Protonix DVT Prophylaxis: Heparin and SCD's Disposition: Attempts to contact family are ongoing. The process to obtain guardianship has been initiated with psychiatry consulted and have deemed that patient does not have decision making capacity. Patient seen and case discussed with attending, Dr. Schumacher. <Deanna Schumacher - Last Filed: 12/24/17 14:57> Objective - Vital Signs/Intake and Output Vital Signs (last 24 hours): Temp Pulse Resp BP Pulse Ox 97.8 F 98 H 18 117/83 95 12/24/17 06:00 12/24/17 10:34 12/24/17 06:00 12/24/17 10:34 12/24/17 06:00 Intake and Output: 12/24/17 12/24/17 06:59 18:59 Intake Total 720 Balance 720 - Medications Medications: Current Medications Acetylcysteine (Acetylcysteine 20%) 4 ml IH BIDRESP [facility] Last Admin: 12/24/17 07:21 Dose: Not Given Amlodipine Besylate (Norvasc) 10 mg PO DAILY [facility] Last Admin: 12/24/17 10:32 Dose: 10 mg Aspirin (Ecotrin) 81 mg PO DAILY [facility] Last Admin: 12/24/17 10:29 Dose: 81 mg Atorvastatin Calcium (Lipitor) 20 mg PO DIN [facility] Last Admin: 12/23/17 17:57 Dose: 20 mg Clotrimazole (Lotrimin Af 1%) 0 ml TOP BID [facility] Last Admin: 12/24/17 10:32 Dose: 1 applic Folic Acid (Folic Acid) 1 mg PO DAILY [facility] Last Admin: 12/24/17 10:29 Dose: 1 mg Heparin Sodium (Porcine) (Heparin) 5,000 units SC Q12 [facility] PRN Reason: Protocol Last Admin: 12/24/17 10:30 Dose: 5,000 units Hydralazine HCl (Apresoline) 10 mg IVP Q6 PRN PRN Reason: For SBP > 150 Last Admin: 12/13/17 08:32 Dose: 10 mg Ceftriaxone Sodium (Rocephin 2 Gm Ivpb) 2 gm in 100 mls @ 100 mls/hr IVPB DAILY [facility] PRN Reason: Protocol Last Admin: 12/24/17 10:33 Dose: 100 mls/hr Ibuprofen (Motrin Tab) 400 mg PO Q6H PRN PRN Reason: Fever >100.4 F Last Admin: 12/10/17 23:04 Dose: 400 mg Insulin Detemir (Levemir) 10 unit SC HS [facility] Last Admin: 12/23/17 21:53 Dose: 10 unit Insulin Human Regular (Humulin R High) 0 units SC ACHS [facility] PRN Reason: Protocol Last Admin: 12/24/17 13:02 Dose: 2 units Levalbuterol HCl (Xopenex) 0.63 mg IH [id number] [facility] Last Admin: 12/24/17 12:07 Dose: Not Given Lisinopril (Zestril) 10 mg PO DAILY [facility] Last Admin: 12/24/17 10:34 Dose: 10 mg Lorazepam (Ativan) 0.5 mg PO BID [facility] PRN Reason: Protocol Last Admin: 12/24/17 10:29 Dose: 0.5 mg Multivitamins/Minerals (Therapeutic-M Tab) 1 tab PO 0800 [facility] Last Admin: 12/24/17 10:34 Dose: 1 tab Pantoprazole Sodium (Protonix Ec Tab) 40 mg PO ACB [facility] Last Admin: 12/24/17 10:33 Dose: 40 mg Potassium Chloride (K-Dur 20 Meq Er Tab) 40 meq PO BID [facility] Last Admin: 12/24/17 10:32 Dose: 40 meq Quetiapine Fumarate (Seroquel) 12.5 mg PO HS PRN; Protocol PRN Reason: psychosis, restlessness Thiamine HCl (Vitamin B1 Tab) 100 mg PO DAILY [facility] Last Admin: 12/24/17 10:34 Dose: 100 mg Ziprasidone (Geodon Inj) 10 mg IM BID PRN; Protocol PRN Reason: agitaiton/psychosis - Labs Labs: 12/23/17 05:30 12/23/17 05:30 PT 12.5 SECONDS (9.4-12.5) 12/09/17 10:00 INR 1.09 (0.93-1.08) H 12/09/17 10:00 APTT 28.3 Seconds (25.1-36.5) 11/30/17 05:30 Attending/Attestation - Attestation I have personally seen and examined this patient.: Yes I have fully participated in the care of the patient.: Yes I have reviewed all pertinent clinical information, including history, physical exam and plan: Yes Notes (Text): 12/24/17 14:53 Medical record note made by the resident after discussion with my direction and input after the patient was personally seen and examined by me. I have reviewed the chart and agree that the record accurately reflects by personal performance of the history, physical exam, data review, and medical decision-making, in the course for the patient. I have also personally directed the plan of care. In Summary is 57 year old male with no known past medical history was admitted with altered mental status, covered in feces in his apartment. He was found to have for right hip cellulitis, which has improved. CT chest also showed multifocal pneumonia for which he received iv antibiotics. He was also treated with tamiflu for flu.He was also found to have Streptococcus viridian in blood cultures for which he is on iv antibiotics. Repeat cultures have been negative. Echocardiogram was done which could not rule out septic vegetations of the aortic valve. Family is still not available to give consent for TAHIR. Continue with iv antibiotics as per ID; will need 4-6 weeks total with weekly CBC, CMP, ESR, and CRP. MRI showed acute vs subacute infarct. Patient mental status is at base line at this time. CT abd/pelvis showed new colonic mass and possible metastatic disease to the liver. GI planned for sigmoidoscopy however again family is not available to give consent for procedure. Case management is working on disposition. Prognosis is guarded.
--- NOTE | 2017-12-23 15:21 | PN ---
DATE: FOLLOWUP NOTE SUBJECTIVE: The patient was seen initially yesterday for evaluation of decision making capacity. The patient was found to have no capacity to make any decisions at this point. The patient was found to be in catatonic stage. Ativan was started 0.5 mg three times a day as well as Seroquel 12.5 mg at the nighttime started as well as Geodon as needed. The patient was followed up today at the morning time. The patient was deeply sedated that is why this display card writer will decrease the dose of Ativan to twice a day as well as Seroquel will be as needed. There were no changes with the patient presentation. The patient was deeply sleeping. Mental status examination, this display card writer was not able to obtain information from the patient. OBJECTIVE: VITAL SIGNS: Stable. Temperature 98/58, pulse is 68, blood pressure 122/86, respirations 19, oxygen saturation is 96%. MEDICATIONS: Reviewed. Norvasc, aspirin, Lipitor, Rocephin, Lotrimin, folic acid, heparin, Motrin, Levemir, Humalog, Zestril, Ativan 0.5 mg twice a day, multivitamins, Protonix, potassium chloride, Seroquel 12.5 mg at the nighttime as needed, thiamine 100 mg daily, and Geodon 10 mg IM as needed for agitation. Mental status would not be able to assess because the patient is deeply sleeping. IMPRESSION: Most likely, the patient is in delirium stage due to multiple medical issues. The patient has history of alcohol abuse. PLAN: The patient was to make decisions about his medical care and Dr. Vasquez's care plan. The patient does not have any family or friends. Medical team is working on guardianship at this point. All medications adjusted. Should you have any questions, give me a call back. The patient will be followed up by nurse practitioner or Dr. Seals tomorrow. Thank you very much for letting me participate in the care of your patient Mary Swartz MD
[2017-12-23] MEDS: Insulin Detemir 100 units/ml Vial (Levemir) SC SCH (21:53)
--- NOTE | 2017-12-23 23:15 | PN ---
DATE: SUBJECTIVE: Patient is seen in bed, in no acute distress, nontoxic. PHYSICAL EXAMINATION: VITAL SIGNS: On exam, temperature is 98, blood pressure is 120/70, respiratory rate 20. HEENT: Unremarkable. NECK: Supple. LUNGS: Have decreased breath sounds. HEART: Normal S1 and S2. ABDOMEN: Soft and nontender. LABORATORY DATA: Reveals a white count of 6000, hemoglobin of 12, platelets of 319. Chemistries reveals a BUN of 15, creatinine of 0.5. Procalcitonin is noted at 0.28. Review of orders reveals the patient to be on ceftriaxone 2 g daily. ASSESSMENT AND PLAN: A 57-year-old male, who was seen earlier this morning in 363, bed 1, admitted with sepsis with Streptococcus viridans and coagulase-negative staphylococcus bacteremia, with right gluteal and back cellulitis, multifocal healthcare-associated pneumonia on top of influenza, status post Sammie infection in sacral area. Today is day #23 of 28 days of ceftriaxone. The blood cultures became negative on 11/30/2017. note is reviewed and follow closely with you. Daniel Torres MD
[2017-12-24] MEDS: Levalbuterol 0.63 MG/3 ML Inhal Soln UD IH SCH ×4 (00:05→21:57)
[2017-12-24] MEDS: Acetylcysteine 20% Inhal Soln (4ml) IH SCH ×2 (07:21→21:57)
[2017-12-24] MEDS: Insulin Reg-HIGH-Coverage SC SCH ×4 (10:31→21:21)
[2017-12-24] MEDS: Clotrimazole 1% Top Soln(10 ml) TOP SCH ×2 (10:32→17:18)
[2017-12-24] MEDS: Potassium Chloride 20 mEq ER Tab PO SCH ×2 (10:32→17:17)
[2017-12-24] MEDS: cefTRIAXone 2 GM IN NS 2 GM/100 ML BAG IVPB SCH (10:33)
[2017-12-24] MEDS: Pantoprazole 40 mg EC Tab PO SCH (10:33)
[2017-12-24] MEDS: Multivitamin With Minerals Tab PO SCH (10:34)
--- NOTE | 2017-12-24 15:59 | CP.PCM.PN ---
<Ryan White - Last Filed: 12/24/17 15:55> Subjective - Date & Time of Evaluation Date of Evaluation: 12/24/17 Time of Evaluation: 15:55 - Subjective Subjective: Medicine Progress Note: Patient seen and assessed at bedside. No acute events overnight noted by nursing staff or patient. Patient has no complaints at this time. Patient is responsive to simple questioning with yes or no responses. He denies fever, chills, headache, chest pain, SOB, abdominal pain, N/V/D/C, or pain with urination. Objective - Vital Signs/Intake and Output Vital Signs (last 24 hours): Temp Pulse Resp BP Pulse Ox 97.8 F 98 H 18 117/83 95 12/24/17 06:00 12/24/17 10:34 12/24/17 06:00 12/24/17 10:34 12/24/17 06:00 Intake and Output: 12/24/17 12/24/17 06:59 18:59 Intake Total 720 Balance 720 - Medications Medications: Current Medications Acetylcysteine (Acetylcysteine 20%) 4 ml IH BIDRESP [facility] Last Admin: 12/24/17 07:21 Dose: Not Given Amlodipine Besylate (Norvasc) 10 mg PO DAILY [facility] Last Admin: 12/24/17 10:32 Dose: 10 mg Aspirin (Ecotrin) 81 mg PO DAILY [facility] Last Admin: 12/24/17 10:29 Dose: 81 mg Atorvastatin Calcium (Lipitor) 20 mg PO DIN [facility] Last Admin: 12/23/17 17:57 Dose: 20 mg Clotrimazole (Lotrimin Af 1%) 0 ml TOP BID [facility] Last Admin: 12/24/17 10:32 Dose: 1 applic Folic Acid (Folic Acid) 1 mg PO DAILY [facility] Last Admin: 12/24/17 10:29 Dose: 1 mg Heparin Sodium (Porcine) (Heparin) 5,000 units SC Q12 [facility] PRN Reason: Protocol Last Admin: 12/24/17 10:30 Dose: 5,000 units Hydralazine HCl (Apresoline) 10 mg IVP Q6 PRN PRN Reason: For SBP > 150 Last Admin: 12/13/17 08:32 Dose: 10 mg Ceftriaxone Sodium (Rocephin 2 Gm Ivpb) 2 gm in 100 mls @ 100 mls/hr IVPB DAILY [facility] PRN Reason: Protocol Last Admin: 12/24/17 10:33 Dose: 100 mls/hr Ibuprofen (Motrin Tab) 400 mg PO Q6H PRN PRN Reason: Fever >100.4 F Last Admin: 12/10/17 23:04 Dose: 400 mg Insulin Detemir (Levemir) 10 unit SC HS [facility] Last Admin: 12/23/17 21:53 Dose: 10 unit Insulin Human Regular (Humulin R High) 0 units SC ACHS [facility] PRN Reason: Protocol Last Admin: 12/24/17 13:02 Dose: 2 units Levalbuterol HCl (Xopenex) 0.63 mg IH [id number] [facility] Last Admin: 12/24/17 12:07 Dose: Not Given Lisinopril (Zestril) 10 mg PO DAILY [facility] Last Admin: 12/24/17 10:34 Dose: 10 mg Lorazepam (Ativan) 0.5 mg PO BID [facility] PRN Reason: Protocol Last Admin: 12/24/17 10:29 Dose: 0.5 mg Multivitamins/Minerals (Therapeutic-M Tab) 1 tab PO 0800 [facility] Last Admin: 12/24/17 10:34 Dose: 1 tab Pantoprazole Sodium (Protonix Ec Tab) 40 mg PO ACB [facility] Last Admin: 12/24/17 10:33 Dose: 40 mg Potassium Chloride (K-Dur 20 Meq Er Tab) 40 meq PO BID [facility] Last Admin: 12/24/17 10:32 Dose: 40 meq Quetiapine Fumarate (Seroquel) 12.5 mg PO HS PRN; Protocol PRN Reason: psychosis, restlessness Thiamine HCl (Vitamin B1 Tab) 100 mg PO DAILY [facility] Last Admin: 12/24/17 10:34 Dose: 100 mg Ziprasidone (Geodon Inj) 10 mg IM BID PRN; Protocol PRN Reason: agitaiton/psychosis - Labs Labs: 12/23/17 05:30 12/23/17 05:30 PT 12.5 SECONDS (9.4-12.5) 12/09/17 10:00 INR 1.09 (0.93-1.08) H 12/09/17 10:00 APTT 28.3 Seconds (25.1-36.5) 11/30/17 05:30 - Constitutional Appears: Non-toxic, No Acute Distress - Head Exam Head Exam: ATRAUMATIC, NORMOCEPHALIC - Eye Exam Eye Exam: EOMI, PERRL Pupil Exam: NORMAL ACCOMODATION, PERRL - ENT Exam ENT Exam: Mucous Membranes Moist, Normal Exam, Normal Oropharynx - Neck Exam Neck Exam: Full ROM, Normal Inspection. absent: Lymphadenopathy, Tenderness - Respiratory Exam Respiratory Exam: Clear to Ausculation Bilateral, NORMAL BREATHING PATTERN. absent: Accessory Muscle Use, Rales, Rhonchi, Wheezes - Cardiovascular Exam Cardiovascular Exam: REGULAR RHYTHM, RRR, +S1, +S2. absent: Tachycardia - GI/Abdominal Exam GI & Abdominal Exam: Soft, Normal Bowel Sounds. absent: Tenderness - Extremities Exam Extremities Exam: Normal Capillary Refill, Normal Inspection. absent: Calf Tenderness, Joint Swelling, Pedal Edema, Tenderness - Neurological Exam Neurological Exam: Alert, Awake. absent: Oriented x3 - Skin Skin Exam: Dry, Intact, Normal Color, Warm Additional comments: Two stage two sacral decubitus ulcers with minimal surrounding erythema Assessment and Plan - Assessment and Plan (Free Text) Assessment: 57 year old male with an unknown past medical history who was brought in by ambulance after being found with an AMS and covered in feces in his apartment. His mental status has progressively improved since admission. He is currently on IV Rocephin for coagulase negative staph and strep viridans bacteremia, with repeat blood cultures negative. An echo with bubble study couldn't rule out septic vegetations of the aortic valve. ID is following and recommends continuing antibiotics for 4-6 weeks. Cardiology was consulted for TAHIR evaluation to rule out endocarditis and septic vegetations. An MRI Brain showed acute vs. subacute lacunar infarct in the left parietal region. Neurology is following and patient is on stroke prevention medication. Patient was found to have new colonic mass and multifocal pneumonia on CT chest/abdomen/pelvis and concerns for metastatic disease of the liver on abdominal ultrasound. GI was consulted. Flexible sigmoidoscopy/Colonoscopy and TAHIR to be done when consent can be obtained. Plan: 1. Toxic-Metabolic Encephalopathy secondary to Strep Viridans/Mitis and Coag Neg Staph Bacteremia -Repeat blood cultures negative -Day 24 of IV antiobiotic therapy since most recent negative blood culture with 4-6 weeks of total therapy indicated -Continue IV Rocephin (Day 12) -Continue Motrin 400mg Q6 PRN for fever -Continue Geodon PRN and Seroquel HS -Weekly ESR and CRP -TAHIR to be done when consent can be obtained -Psychiatry, Cardiology, Neurology and ID consulted, all recommendations appreciated -PT/OT recommending JOSIAH upon discharge 2. Colonic Neoplasm -Flexible sigmoidoscopy/Colonoscopy to be done when consent can be obtained -GI consulted, all recommendations appreciated 3. Multifocal Pneumonia -Continue IV Rocephin (Day 12) -Continue supplemental oxygen as needed -Continue Xopenex [id number] and continued Mucormyst BID 4. Ischemic Stroke -Continue ASA 81mg and Lipitor 20mg 5. History of Alcohol Abuse/Withdrawal -PO Folate, Thiamine, and MV supplementation -Fall, Seizure and Aspiration precautions 6. DM2 -SSI-High and Accuchecks ACHS -Levemir 10u HS -Carb Consistent Diet 7. HTN -Continue Lisinopril 10mg, Norvasc 10mg PO daily and Hydralazine 10mg IVP Q6 PRN 8. Stage 2 Sacral Decubitus Ulcers with associated Cellulitis -Continue Lotrimin AF 1% ointment -Continue wound care and Q2 repositioning -OOB to chair 9. Hypokalemia -Currently within normal limits -Continue daily supplementation with KCl 40meq BID GI Prophylaxis: Protonix DVT Prophylaxis: Heparin and SCD's Disposition: Attempts to contact family are ongoing. The process to obtain guardianship has been initiated with psychiatry consulted and have deemed that patient does not have decision making capacity. Patient seen and case discussed with attending, Dr. Schumacher. <Deanna Schumacher - Last Filed: 12/24/17 16:17> Objective - Vital Signs/Intake and Output Vital Signs (last 24 hours): Temp Pulse Resp BP Pulse Ox 97.8 F 98 H 18 117/83 95 12/24/17 06:00 12/24/17 10:34 12/24/17 06:00 12/24/17 10:34 12/24/17 06:00 Intake and Output: 12/24/17 12/24/17 06:59 18:59 Intake Total 720 Balance 720 - Medications Medications: Current Medications Acetylcysteine (Acetylcysteine 20%) 4 ml IH BIDRESP [facility] Last Admin: 12/24/17 07:21 Dose: Not Given Amlodipine Besylate (Norvasc) 10 mg PO DAILY [facility] Last Admin: 12/24/17 10:32 Dose: 10 mg Aspirin (Ecotrin) 81 mg PO DAILY [facility] Last Admin: 12/24/17 10:29 Dose: 81 mg Atorvastatin Calcium (Lipitor) 20 mg PO DIN [facility] Last Admin: 12/23/17 17:57 Dose: 20 mg Clotrimazole (Lotrimin Af 1%) 0 ml TOP BID [facility] Last Admin: 12/24/17 10:32 Dose: 1 applic Folic Acid (Folic Acid) 1 mg PO DAILY [facility] Last Admin: 12/24/17 10:29 Dose: 1 mg Heparin Sodium (Porcine) (Heparin) 5,000 units SC Q12 [facility] PRN Reason: Protocol Last Admin: 12/24/17 10:30 Dose: 5,000 units Hydralazine HCl (Apresoline) 10 mg IVP Q6 PRN PRN Reason: For SBP > 150 Last Admin: 12/13/17 08:32 Dose: 10 mg Ceftriaxone Sodium (Rocephin 2 Gm Ivpb) 2 gm in 100 mls @ 100 mls/hr IVPB DAILY [facility] PRN Reason: Protocol Last Admin: 12/24/17 10:33 Dose: 100 mls/hr Ibuprofen (Motrin Tab) 400 mg PO Q6H PRN PRN Reason: Fever >100.4 F Last Admin: 12/10/17 23:04 Dose: 400 mg Insulin Detemir (Levemir) 10 unit SC HS [facility] Last Admin: 12/23/17 21:53 Dose: 10 unit Insulin Human Regular (Humulin R High) 0 units SC ACHS [facility] PRN Reason: Protocol Last Admin: 12/24/17 13:02 Dose: 2 units Levalbuterol HCl (Xopenex) 0.63 mg IH [id number] [facility] Last Admin: 12/24/17 12:07 Dose: Not Given Lisinopril (Zestril) 10 mg PO DAILY [facility] Last Admin: 12/24/17 10:34 Dose: 10 mg Lorazepam (Ativan) 0.5 mg PO BID [facility] PRN Reason: Protocol Last Admin: 12/24/17 10:29 Dose: 0.5 mg Multivitamins/Minerals (Therapeutic-M Tab) 1 tab PO 0800 [facility] Last Admin: 12/24/17 10:34 Dose: 1 tab Pantoprazole Sodium (Protonix Ec Tab) 40 mg PO ACB [facility] Last Admin: 12/24/17 10:33 Dose: 40 mg Potassium Chloride (K-Dur 20 Meq Er Tab) 40 meq PO BID [facility] Last Admin: 12/24/17 10:32 Dose: 40 meq Quetiapine Fumarate (Seroquel) 12.5 mg PO HS PRN; Protocol PRN Reason: psychosis, restlessness Thiamine HCl (Vitamin B1 Tab) 100 mg PO DAILY [facility] Last Admin: 12/24/17 10:34 Dose: 100 mg Ziprasidone (Geodon Inj) 10 mg IM BID PRN; Protocol PRN Reason: agitaiton/psychosis - Labs Labs: 12/23/17 05:30 12/23/17 05:30 PT 12.5 SECONDS (9.4-12.5) 12/09/17 10:00 INR 1.09 (0.93-1.08) H 12/09/17 10:00 APTT 28.3 Seconds (25.1-36.5) 11/30/17 05:30 Attending/Attestation - Attestation I have personally seen and examined this patient.: Yes I have fully participated in the care of the patient.: Yes I have reviewed all pertinent clinical information, including history, physical exam and plan: Yes Notes (Text): 12/24/17 16:16 Medical record note made by the resident after discussion with my direction and input after the patient was personally seen and examined by me. I have reviewed the chart and agree that the record accurately reflects by personal performance of the history, physical exam, data review, and medical decision-making, in the course for the patient. I have also personally directed the plan of care.
--- NOTE | 2017-12-24 16:58 | CP.PCM.PN ---
Subjective - Date & Time of Evaluation Date of Evaluation: 12/24/17 Time of Evaluation: 10:10 - Subjective Subjective: Not in distress, no fevers, no nausea, no diarrhea. Objective - Vital Signs/Intake and Output Vital Signs (last 24 hours): Temp Pulse Resp BP Pulse Ox 97.8 F 98 H 18 117/83 95 12/24/17 06:00 12/24/17 10:34 12/24/17 06:00 12/24/17 10:34 12/24/17 06:00 Intake and Output: 12/24/17 12/24/17 06:59 18:59 Intake Total 720 Balance 720 - Medications Medications: Current Medications Acetylcysteine (Acetylcysteine 20%) 4 ml IH BIDRESP [facility] Last Admin: 12/24/17 07:21 Dose: Not Given Amlodipine Besylate (Norvasc) 10 mg PO DAILY [facility] Last Admin: 12/24/17 10:32 Dose: 10 mg Aspirin (Ecotrin) 81 mg PO DAILY [facility] Last Admin: 12/24/17 10:29 Dose: 81 mg Atorvastatin Calcium (Lipitor) 20 mg PO DIN [facility] Last Admin: 12/23/17 17:57 Dose: 20 mg Clotrimazole (Lotrimin Af 1%) 0 ml TOP BID [facility] Last Admin: 12/24/17 10:32 Dose: 1 applic Folic Acid (Folic Acid) 1 mg PO DAILY [facility] Last Admin: 12/24/17 10:29 Dose: 1 mg Heparin Sodium (Porcine) (Heparin) 5,000 units SC Q12 [facility] PRN Reason: Protocol Last Admin: 12/24/17 10:30 Dose: 5,000 units Hydralazine HCl (Apresoline) 10 mg IVP Q6 PRN PRN Reason: For SBP > 150 Last Admin: 12/13/17 08:32 Dose: 10 mg Ceftriaxone Sodium (Rocephin 2 Gm Ivpb) 2 gm in 100 mls @ 100 mls/hr IVPB DAILY [facility] PRN Reason: Protocol Last Admin: 12/24/17 10:33 Dose: 100 mls/hr Ibuprofen (Motrin Tab) 400 mg PO Q6H PRN PRN Reason: Fever >100.4 F Last Admin: 12/10/17 23:04 Dose: 400 mg Insulin Detemir (Levemir) 10 unit SC HS [facility] Last Admin: 12/23/17 21:53 Dose: 10 unit Insulin Human Regular (Humulin R High) 0 units SC ACHS [facility] PRN Reason: Protocol Last Admin: 12/24/17 10:31 Dose: Not Given Levalbuterol HCl (Xopenex) 0.63 mg IH [id number] [facility] Last Admin: 12/24/17 07:21 Dose: Not Given Lisinopril (Zestril) 10 mg PO DAILY [facility] Last Admin: 12/24/17 10:34 Dose: 10 mg Lorazepam (Ativan) 0.5 mg PO BID [facility] PRN Reason: Protocol Last Admin: 12/24/17 10:29 Dose: 0.5 mg Multivitamins/Minerals (Therapeutic-M Tab) 1 tab PO 0800 [facility] Last Admin: 12/24/17 10:34 Dose: 1 tab Pantoprazole Sodium (Protonix Ec Tab) 40 mg PO ACB [facility] Last Admin: 12/24/17 10:33 Dose: 40 mg Potassium Chloride (K-Dur 20 Meq Er Tab) 40 meq PO BID [facility] Last Admin: 12/24/17 10:32 Dose: 40 meq Quetiapine Fumarate (Seroquel) 12.5 mg PO HS PRN; Protocol PRN Reason: psychosis, restlessness Thiamine HCl (Vitamin B1 Tab) 100 mg PO DAILY [facility] Last Admin: 12/24/17 10:34 Dose: 100 mg Ziprasidone (Geodon Inj) 10 mg IM BID PRN; Protocol PRN Reason: agitaiton/psychosis - Labs Labs: 12/23/17 05:30 12/23/17 05:30 PT 12.5 SECONDS (9.4-12.5) 12/09/17 10:00 INR 1.09 (0.93-1.08) H 12/09/17 10:00 APTT 28.3 Seconds (25.1-36.5) 11/30/17 05:30 - Constitutional Appears: Chronically Ill - Head Exam Head Exam: NORMAL INSPECTION - Neck Exam Neck Exam: absent: Meningismus - Respiratory Exam Respiratory Exam: Decreased Breath Sounds - Cardiovascular Exam Cardiovascular Exam: +S1, +S2 - GI/Abdominal Exam GI & Abdominal Exam: Soft. absent: Tenderness Assessment and Plan - Assessment and Plan (Free Text) Plan: Assessment sepsis due to strep viridans and CoNS bacteremia from right gluteal and back cellulitis S/P multifocal HCAP on top of Influenza A infection R/O Sammie infection of sacral area as well Plan continue Rocephin for the Strep viridans bacteremia (would continue 4-6 weeks of Rocephin with weekly ESR, CRP, CBC, CMP) day 24 of 28- unable to do TAHIR since patient unable to give consent and patient does not have family to give consent will continue to follow clinically
[2017-12-24] MEDS: Insulin Detemir 100 units/ml Vial (Levemir) SC SCH (21:10)
--- NOTE | 2017-12-24 23:37 | CON ---
DATE: 12/24/2017 He is being seen today for a followup consultation. PRESENTATION: The patient is a 57-year-old white male, seen at bedside. The patient was originally admitted to [facility] on 11/29/2017 with no history and no ability to tell his history. He came to the Emergency Room via EMS with altered mental status on arrival. The patient was covered in feces. Upon arrival to the Emergency Department, he was cachectic as well as not being able to give his own history. His mental status during the time that he has been in the hospital has not improved. The patient was treated for sepsis. His blood cultures were positive for Strep viridans and coagulase negative Staph. Additionally, a CAT scan of the chest showed multifocal pneumonia, fatty liver infiltration, and some density along the rectosigmoidal colon without obstruction. He additionally has a history of alcohol intoxication from the past. There has been no success in trying to find the next of kin for this patient and Psychiatry was called on 12/21/2017 to assess for patient's ability to make decisions or competency. The patient was seen by Dr. Swartz on 12/22/2017. At that time, Dr. Swartz found the patient to be lacking in capacity to make decisions for himself, indicating that he had no basic understanding of his medical diagnosis, was not able to participate in any interview and he seemed to be catatonic and disoriented. The patient medications were reviewed. Small dose of benzodiazepine, Ativan 0.5 mg 3 times a day was scheduled. He was given a p.r.n. of Geodon in case of agitation and Seroquel 12.5 mg at the nighttime was started to clear sensorium. Since that time, patient was followed once more by Dr. Swartz and I am seeing him today. The patient was seen at bedside. He appears to be marginally better than described by Dr. Swartz; however, he continues to have lack of awareness as to where he is. He realizes he is in a medical center somewhere, but he does not know which one even when reminded several times during our conversation. He does not know why he is in the hospital and has a disregard for why he might be in the hospital. He does make eye contact. He does appear to be following the conversation, but not processing. He is tolerating the changes in his medication well in speaking with the nurses, reviewing the notes. He continues confused, but there are no incidents of behavioral problems. He is easily able to be reoriented. He has not needed Geodon for any kind of agitation, but he has been receiving lorazepam and Seroquel routinely. VITAL SIGNS: Current vital signs include temperature of 97.8, pulse rate of 98, blood pressure of 117/83, respiratory rate of 18, and O2 sat of 95%. LABORATORY DATA: Most recent blood sugars have been running high. Yesterday at 04:30, his glucose was 161; yesterday at 09:30, it was 280; this morning at 2 a.m., it was 164; 8:00 this morning was 148 and then at 11:47, it was 178. MENTAL STATUS EXAMINATION: The patient is alert and answers to his name, but he is disoriented in all other spheres; however, he has some awareness that he is in the hospital, does not know which one. He is not able to process well enough to be concerned about his medical condition. DIAGNOSTIC IMPTRESSION: Metabolic encephalopathy; history of alcohol use disorder, undetermined, Mood changes secondary to stroke . PLAN: The patient does not appear to be suicidal or homicidal and does not to appear to be at risk of hurting himself or others. However, as stated by Dr. Swartz, patient has lost capacity to make decisions for himself, specifically he is unable to make decisions for himself medically as he has no understanding of his medical diagnosis or treatments that are being offered. He cannot hold the conversation. He is very simplistic in answering questions, has very little recall. He seems to be tolerating his medications well, which are Ativan 0.5 mg 3 times a day and Seroquel 12.5 mg at bedtime. As he was able to look at me, he did not appear to be withdrawn and catatonic. His movements were fluid. He made an effort to try to answer questions and was able to tell me he did not know for almost everything. I would recommend continue with these medications. Social Service are still working on finding patient's family so they can attempt to have a guardian for him. Psychiatry will sign off at this time as the patient appears to be stable. Please call back if there are any further concerns. Thank you for the consult. Pinky Lopez APN Mary Swartz MD [facility]
[2017-12-25] MEDS: Levalbuterol 0.63 MG/3 ML Inhal Soln UD IH SCH ×6 (02:02→19:16)
[2017-12-25 06:35] LABS: ALB/GLOB RATIO 1.1 (1.1-1.8); ALBUMIN 3.7 g/dL (3.0-4.8); ALT/SGPT 33 U/L (7-56); AST/SGOT 30 U/L (17-59); BLOOD UREA NITROGEN 15 mg/dL (7-21); CALCIUM 10.3 mg/dL (8.4-10.5); GFR NON-AFRICAN AMERICAN > 60
[2017-12-25 06:58] LABS: BASO # 0.03 K/mm3 (0.0-2.0); BASO % 0.4 % (0.0-3.0); EOS # 0.1 (0.0-0.7); EOS % 1.3 % (1.5-5.0); GRAN # 3.11 (1.4-6.5); GRAN % 45.4 % (50.0-68.0); HEMOGLOBIN 12.8 g/dL (14.0-18.0); LYMPH # 2.8 (1.2-3.4); MEAN CELL VOLUME 87.3 fl (80.0-105.0); MEAN CORPUSCULAR HEMOGLOBIN 28.4 pg (25.0-35.0); MEAN CORPUSCULAR HGB CONC 32.6 g/dl (31.0-37.0); MEAN PLATELET VOLUME 9.7 fl (7.0-11.0); MONO # 0.8 (0.1-0.6); MONO % 11.9 % (1.0-6.0); RBC 4.5 10^6/uL (3.5-6.1); RED CELL DISTRIBUTION WIDTH 16.5 % (11.5-14.5); WHITE BLOOD COUNT 6.9 10^3/ul (4.5-11.0)
[2017-12-25] MEDS: Acetylcysteine 20% Inhal Soln (4ml) IH SCH ×2 (07:34→19:15)
[2017-12-25] MEDS: Insulin Reg-HIGH-Coverage SC SCH ×4 (08:00→23:00)
[2017-12-25] MEDS: Pantoprazole 40 mg EC Tab PO SCH (08:35)
[2017-12-25] MEDS: Potassium Chloride 20 mEq ER Tab PO SCH ×2 (10:50→17:28)
[2017-12-25] MEDS: cefTRIAXone 2 GM IN NS 2 GM/100 ML BAG IVPB SCH (10:50)
[2017-12-25] MEDS: Clotrimazole 1% Top Soln(10 ml) TOP SCH ×2 (10:50→17:29)
[2017-12-25] MEDS: Multivitamin With Minerals Tab PO SCH (10:50)
--- NOTE | 2017-12-25 12:37 | CP.PCM.PN ---
<Ryan White - Last Filed: 12/25/17 12:21> Subjective - Date & Time of Evaluation Date of Evaluation: 12/25/17 Time of Evaluation: 12:21 - Subjective Subjective: Medicine Progress Note: Patient seen and assessed at bedside. No acute events overnight noted by nursing staff or patient. Patient has no complaints at this time. He denies fever, chills, headache, chest pain, SOB, abdominal pain, N/V/D/C, or pain with urination. Objective - Vital Signs/Intake and Output Vital Signs (last 24 hours): Temp Pulse Resp BP Pulse Ox 97 F L 91 H 20 120/82 94 L 12/25/17 08:25 12/25/17 10:50 12/25/17 08:25 12/25/17 10:50 12/25/17 08:25 - Medications Medications: Current Medications Acetylcysteine (Acetylcysteine 20%) 4 ml IH BIDRESP [facility] Last Admin: 12/25/17 07:34 Dose: Not Given Amlodipine Besylate (Norvasc) 10 mg PO DAILY [facility] Last Admin: 12/25/17 10:50 Dose: 10 mg Aspirin (Ecotrin) 81 mg PO DAILY [facility] Last Admin: 12/25/17 10:50 Dose: 81 mg Atorvastatin Calcium (Lipitor) 20 mg PO DIN [facility] Last Admin: 12/24/17 17:18 Dose: 20 mg Clotrimazole (Lotrimin Af 1%) 0 ml TOP BID [facility] Last Admin: 12/25/17 10:50 Dose: 1 applic Folic Acid (Folic Acid) 1 mg PO DAILY [facility] Last Admin: 12/25/17 10:50 Dose: 1 mg Heparin Sodium (Porcine) (Heparin) 5,000 units SC Q12 [facility] PRN Reason: Protocol Last Admin: 12/25/17 10:50 Dose: 5,000 units Hydralazine HCl (Apresoline) 10 mg IVP Q6 PRN PRN Reason: For SBP > 150 Last Admin: 12/13/17 08:32 Dose: 10 mg Ceftriaxone Sodium (Rocephin 2 Gm Ivpb) 2 gm in 100 mls @ 100 mls/hr IVPB DAILY [facility] PRN Reason: Protocol Last Admin: 12/25/17 10:50 Dose: 100 mls/hr Ibuprofen (Motrin Tab) 400 mg PO Q6H PRN PRN Reason: Fever >100.4 F Last Admin: 12/10/17 23:04 Dose: 400 mg Insulin Detemir (Levemir) 10 unit SC HS [facility] Last Admin: 12/24/17 21:10 Dose: 10 unit Insulin Human Regular (Humulin R High) 0 units SC ACHS [facility] PRN Reason: Protocol Last Admin: 12/25/17 11:37 Dose: 4 units Levalbuterol HCl (Xopenex) 0.63 mg IH [id number] [facility] Last Admin: 12/25/17 11:48 Dose: Not Given Lisinopril (Zestril) 10 mg PO DAILY [facility] Last Admin: 12/25/17 10:50 Dose: 10 mg Lorazepam (Ativan) 0.5 mg PO BID [facility] PRN Reason: Protocol Last Admin: 12/25/17 10:50 Dose: 0.5 mg Multivitamins/Minerals (Therapeutic-M Tab) 1 tab PO 0800 [facility] Last Admin: 12/25/17 10:50 Dose: 1 tab Pantoprazole Sodium (Protonix Ec Tab) 40 mg PO ACB [facility] Last Admin: 12/25/17 08:35 Dose: 40 mg Potassium Chloride (K-Dur 20 Meq Er Tab) 40 meq PO BID [facility] Last Admin: 12/25/17 10:50 Dose: 40 meq Quetiapine Fumarate (Seroquel) 12.5 mg PO HS PRN; Protocol PRN Reason: psychosis, restlessness Thiamine HCl (Vitamin B1 Tab) 100 mg PO DAILY [facility] Last Admin: 12/25/17 10:50 Dose: 100 mg Ziprasidone (Geodon Inj) 10 mg IM BID PRN; Protocol PRN Reason: agitaiton/psychosis - Labs Labs: 12/25/17 05:00 12/25/17 05:00 PT 12.5 SECONDS (9.4-12.5) 12/09/17 10:00 INR 1.09 (0.93-1.08) H 12/09/17 10:00 APTT 28.3 Seconds (25.1-36.5) 11/30/17 05:30 - Constitutional Appears: Non-toxic, No Acute Distress - Head Exam Head Exam: ATRAUMATIC, NORMOCEPHALIC - Eye Exam Eye Exam: EOMI, PERRL Pupil Exam: NORMAL ACCOMODATION, PERRL - ENT Exam ENT Exam: Mucous Membranes Moist, Normal Exam - Neck Exam Neck Exam: Full ROM, Normal Inspection. absent: Lymphadenopathy - Respiratory Exam Respiratory Exam: Clear to Ausculation Bilateral, NORMAL BREATHING PATTERN. absent: Rales, Rhonchi, Wheezes - Cardiovascular Exam Cardiovascular Exam: REGULAR RHYTHM, RRR, +S1, +S2. absent: Bradycardia, Tachycardia, Murmur - GI/Abdominal Exam GI & Abdominal Exam: Soft, Normal Bowel Sounds. absent: Distended, Firm, Guarding, Tenderness, Rebound - Extremities Exam Extremities Exam: Normal Capillary Refill. absent: Calf Tenderness, Joint Swelling, Pedal Edema, Tenderness - Neurological Exam Neurological Exam: Alert, Awake. absent: Oriented x3 - Skin Skin Exam: Dry, Intact, Normal Color, Warm Additional comments: RLE wound dressing clean, dry and intact Assessment and Plan - Assessment and Plan (Free Text) Assessment: 57 year old male with an unknown past medical history who was brought in by ambulance after being found with an AMS and covered in feces in his apartment. His mental status has progressively improved since admission. He is currently on IV Rocephin for coagulase negative staph and strep viridans bacteremia, with repeat blood cultures negative. An echo with bubble study couldn't rule out septic vegetations of the aortic valve. ID is following and recommends continuing antibiotics for 4-6 weeks. Cardiology was consulted for TAHIR evaluation to rule out endocarditis and septic vegetations. An MRI Brain showed acute vs. subacute lacunar infarct in the left parietal region. Neurology is following and patient is on stroke prevention medication. Patient was found to have new colonic mass and multifocal pneumonia on CT chest/abdomen/pelvis and concerns for metastatic disease of the liver on abdominal ultrasound. GI was consulted. Flexible sigmoidoscopy/Colonoscopy and TAHIR to be done when consent can be obtained. Plan: 1. Toxic-Metabolic Encephalopathy secondary to Strep Viridans/Mitis and Coag Neg Staph Bacteremia -Repeat blood cultures negative -Day 25 of IV antiobiotic therapy since most recent negative blood culture with 4-6 weeks of total therapy indicated -Continue IV Rocephin (Day 13) -Continue Motrin 400mg Q6 PRN for fever -Continue Geodon PRN and Seroquel HS -Weekly ESR and CRP -TAHIR to be done when consent can be obtained -Psychiatry, Cardiology, Neurology and ID consulted, all recommendations appreciated -PT/OT recommending [facility] upon discharge 2. Colonic Neoplasm -Flexible sigmoidoscopy/Colonoscopy to be done when consent can be obtained -GI consulted, all recommendations appreciated 3. Multifocal Pneumonia -Continue IV Rocephin (Day 13) -Continue supplemental oxygen as needed -Continue Xopenex [id number] and continued Mucormyst BID 4. Ischemic Stroke -Continue ASA 81mg and Lipitor 20mg 5. History of Alcohol Abuse/Withdrawal -PO Folate, Thiamine, and MV supplementation -Fall, Seizure and Aspiration precautions 6. DM2 -SSI-High and Accuchecks ACHS -Levemir 10u HS -Carb Consistent Diet 7. HTN -Continue Lisinopril 10mg, Norvasc 10mg PO daily and Hydralazine 10mg IVP Q6 PRN 8. Stage 2 Sacral Decubitus Ulcers with associated Cellulitis -Continue Lotrimin AF 1% ointment -Continue wound care and Q2 repositioning -OOB to chair 9. Hypokalemia -Currently within normal limits -Continue daily supplementation with KCl 40meq BID GI Prophylaxis: Protonix DVT Prophylaxis: Heparin and SCD's Disposition: The process to obtain guardianship has been initiated with psychiatry consulted and having deemed that patient does not have decision making capacity. Based on this patients clinical evaluation, he demonstrates a lack of the necessary judgment, mental capacity and insight into his health status to care for himself. This is likely attributable to his current toxic metabolic encephalopathy and/or ischemic cerebral infarction but other etiologies are possible, including neurocognitive dysfunction related to alcohol abuse, given the limited medical history that has been made available. Patient requires assistance in all ADL's as well as ambulation and does not possess the ability to adequately express his needs or concerns. Given this, patient will require prison care with 24 hour supervision. Patient is medically clear for discharge to prison care facility, given that said facility can provide IV antibiotics for the duration of his recommended six week course of therapy for gram positive bacteremia. Patient will also require a legal guardian to offer consent on his behalf for recommended diagnostic testing such as colonoscopy and TAHIR. Patient seen and case discussed with attending, Dr. Schumacher. <Deanna Schumacher - Last Filed: 12/25/17 14:01> Objective - Vital Signs/Intake and Output Vital Signs (last 24 hours): Temp Pulse Resp BP Pulse Ox 97 F L 91 H 20 120/82 94 L 12/25/17 08:25 12/25/17 10:50 12/25/17 08:25 12/25/17 10:50 12/25/17 08:25 - Medications Medications: Current Medications Acetylcysteine (Acetylcysteine 20%) 4 ml IH BIDRESP [facility] Last Admin: 12/25/17 07:34 Dose: Not Given Amlodipine Besylate (Norvasc) 10 mg PO DAILY [facility] Last Admin: 12/25/17 10:50 Dose: 10 mg Aspirin (Ecotrin) 81 mg PO DAILY [facility] Last Admin: 12/25/17 10:50 Dose: 81 mg Atorvastatin Calcium (Lipitor) 20 mg PO DIN [facility] Last Admin: 12/24/17 17:18 Dose: 20 mg Clotrimazole (Lotrimin Af 1%) 0 ml TOP BID [facility] Last Admin: 12/25/17 10:50 Dose: 1 applic Folic Acid (Folic Acid) 1 mg PO DAILY [facility] Last Admin: 12/25/17 10:50 Dose: 1 mg Heparin Sodium (Porcine) (Heparin) 5,000 units SC Q12 [facility] PRN Reason: Protocol Last Admin: 12/25/17 10:50 Dose: 5,000 units Hydralazine HCl (Apresoline) 10 mg IVP Q6 PRN PRN Reason: For SBP > 150 Last Admin: 12/13/17 08:32 Dose: 10 mg Ceftriaxone Sodium (Rocephin 2 Gm Ivpb) 2 gm in 100 mls @ 100 mls/hr IVPB DAILY [facility] PRN Reason: Protocol Last Admin: 12/25/17 10:50 Dose: 100 mls/hr Ibuprofen (Motrin Tab) 400 mg PO Q6H PRN PRN Reason: Fever >100.4 F Last Admin: 12/10/17 23:04 Dose: 400 mg Insulin Detemir (Levemir) 10 unit SC HS [facility] Last Admin: 12/24/17 21:10 Dose: 10 unit Insulin Human Regular (Humulin R High) 0 units SC ACHS [facility] PRN Reason: Protocol Last Admin: 12/25/17 11:37 Dose: 4 units Levalbuterol HCl (Xopenex) 0.63 mg IH [id number] [facility] Last Admin: 12/25/17 11:48 Dose: Not Given Lisinopril (Zestril) 10 mg PO DAILY [facility] Last Admin: 12/25/17 10:50 Dose: 10 mg Lorazepam (Ativan) 0.5 mg PO BID [facility] PRN Reason: Protocol Last Admin: 12/25/17 10:50 Dose: 0.5 mg Multivitamins/Minerals (Therapeutic-M Tab) 1 tab PO 0800 [facility] Last Admin: 12/25/17 10:50 Dose: 1 tab Pantoprazole Sodium (Protonix Ec Tab) 40 mg PO ACB [facility] Last Admin: 12/25/17 08:35 Dose: 40 mg Potassium Chloride (K-Dur 20 Meq Er Tab) 40 meq PO BID [facility] Last Admin: 12/25/17 10:50 Dose: 40 meq Quetiapine Fumarate (Seroquel) 12.5 mg PO HS PRN; Protocol PRN Reason: psychosis, restlessness Thiamine HCl (Vitamin B1 Tab) 100 mg PO DAILY [facility] Last Admin: 12/25/17 10:50 Dose: 100 mg Ziprasidone (Geodon Inj) 10 mg IM BID PRN; Protocol PRN Reason: agitaiton/psychosis - Labs Labs: 12/25/17 05:00 12/25/17 05:00 PT 12.5 SECONDS (9.4-12.5) 12/09/17 10:00 INR 1.09 (0.93-1.08) H 12/09/17 10:00 APTT 28.3 Seconds (25.1-36.5) 11/30/17 05:30 Attending/Attestation - Attestation I have personally seen and examined this patient.: Yes I have fully participated in the care of the patient.: Yes I have reviewed all pertinent clinical information, including history, physical exam and plan: Yes Notes (Text): 12/25/17 13:59 Medical record note made by the resident after discussion with my direction and input after the patient was personally seen and examined by me. I have reviewed the chart and agree that the record accurately reflects by personal performance of the history, physical exam, data review, and medical decision-making, in the course for the patient. I have also personally directed the plan of care. In Summary Mr Tracey is 57 year old male with no known past medical history was admitted with altered mental status, covered in feces in his apartment. He was found to have for right hip cellulitis, which has improved. CT chest also showed multifocal pneumonia for which he received iv antibiotics. He was also treated with tamiflu for flu. He was also found to have Streptococcus viridian in blood cultures for which he is on iv antibiotics. Repeat cultures have been negative. Echocardiogram was done which could not rule out septic vegetations of the aortic valve. Family is still not available to give consent for TAHIR. Continue with iv antibiotics as per ID; will need 4-6 weeks total with weekly CBC, CMP, ESR, and CRP.MRI showed acute vs subacute infarct. Patient mental status is at base line at this time.CT abd/pelvis showed new colonic mass and possible metastatic disease to the liver. GI planned for sigmoidoscopy however again family is not available to give consent for procedure. Prognosis is guarded. Case management is working on guardianship/ disposition.
--- NOTE | 2017-12-25 14:58 | PN ---
DATE: 12/25/2017 SUBJECTIVE: The patient is in bed, in no acute distress, nontoxic. PHYSICAL EXAMINATION: VITAL SIGNS: Temperature is 97, blood pressure is 120/80, respiratory rate of 20, heart rate of 91. HEENT: Examination of HEENT is unremarkable. NECK: Supple. LUNGS: Have decreased breath sounds. HEART: Normal S1, S2. ABDOMEN: Soft, nontender. LABORATORY DATA: Laboratory examination reveals a white count of 6.9, hemoglobin of 12. Sed rate is 40, BUN of 15, creatinine of 0.5. Procalcitonin is noted and influenza is noted. Review of orders reveals the patient to be on ceftriaxone. ASSESSMENT AND PLAN: A 57-year-old with sepsis due to Streptococcus viridans, coag-negative Staphylococcus bacteremia, right gluteal and back cellulitis, status post multifocal healthcare-associated pneumonia on top of influenza and on ceftriaxone, today is day #25 of 28 days. We will follow closely with you. Daniel Torres MD
[2017-12-25] MEDS: Insulin Detemir 100 units/ml Vial (Levemir) SC SCH (22:20)
[2017-12-26] MEDS: Levalbuterol 0.63 MG/3 ML Inhal Soln UD IH SCH ×7 (04:09→23:49)
[2017-12-26] MEDS: Acetylcysteine 20% Inhal Soln (4ml) IH SCH ×2 (07:16→19:16)
[2017-12-26] MEDS: Potassium Chloride 20 mEq ER Tab PO SCH ×2 (09:42→18:41)
[2017-12-26] MEDS: cefTRIAXone 2 GM IN NS 2 GM/100 ML BAG IVPB SCH (09:43)
[2017-12-26] MEDS: Pantoprazole 40 mg EC Tab PO SCH (09:43)
[2017-12-26] MEDS: Multivitamin With Minerals Tab PO SCH (09:44)
--- NOTE | 2017-12-26 10:38 | CP.PCM.PN ---
<Ryan White - Last Filed: 12/26/17 10:33> Subjective - Date & Time of Evaluation Date of Evaluation: 12/26/17 Time of Evaluation: 10:33 - Subjective Subjective: Medicine Progress Note: Patient seen and assessed at bedside. No acute events overnight noted by nursing staff or patient. Patient is oriented person and place but not to time or event. He reports that he has five brothers. Patient has no complaints at this time including fever, chills, headache, chest pain, SOB, abdominal pain, N/ V/D/C, or pain with urination. Objective - Vital Signs/Intake and Output Vital Signs (last 24 hours): Temp Pulse Resp BP Pulse Ox 97 F L 95 H 20 133/82 92 L 12/26/17 08:28 12/26/17 08:28 12/26/17 08:28 12/26/17 09:43 12/26/17 08:28 Intake and Output: 12/26/17 12/26/17 06:59 18:59 Intake Total Balance - Medications Medications: Current Medications Acetylcysteine (Acetylcysteine 20%) 4 ml IH BIDRESP [facility] Last Admin: 12/26/17 07:16 Dose: Not Given Amlodipine Besylate (Norvasc) 10 mg PO DAILY [facility] Last Admin: 12/26/17 09:43 Dose: 10 mg Aspirin (Ecotrin) 81 mg PO DAILY [facility] Last Admin: 12/26/17 09:38 Dose: 81 mg Atorvastatin Calcium (Lipitor) 20 mg PO DIN [facility] Last Admin: 12/25/17 17:28 Dose: 20 mg Clotrimazole (Lotrimin Af 1%) 0 ml TOP BID [facility] Last Admin: 12/25/17 17:29 Dose: 1 applic Folic Acid (Folic Acid) 1 mg PO DAILY [facility] Last Admin: 12/26/17 09:38 Dose: 1 mg Heparin Sodium (Porcine) (Heparin) 5,000 units SC Q12 [facility] PRN Reason: Protocol Last Admin: 12/26/17 09:42 Dose: 5,000 units Hydralazine HCl (Apresoline) 10 mg IVP Q6 PRN PRN Reason: For SBP > 150 Last Admin: 12/13/17 08:32 Dose: 10 mg Ceftriaxone Sodium (Rocephin 2 Gm Ivpb) 2 gm in 100 mls @ 100 mls/hr IVPB DAILY [facility] PRN Reason: Protocol Last Admin: 12/26/17 09:43 Dose: 100 mls/hr Ibuprofen (Motrin Tab) 400 mg PO Q6H PRN PRN Reason: Fever >100.4 F Last Admin: 12/10/17 23:04 Dose: 400 mg Insulin Detemir (Levemir) 10 unit SC HS [facility] Last Admin: 12/25/17 22:20 Dose: 10 unit Insulin Human Regular (Humulin R High) 0 units SC ACHS [facility] PRN Reason: Protocol Last Admin: 12/25/17 23:00 Dose: Not Given Levalbuterol HCl (Xopenex) 0.63 mg IH [id number] [facility] Last Admin: 12/26/17 07:16 Dose: Not Given Lisinopril (Zestril) 10 mg PO DAILY [facility] Last Admin: 12/26/17 09:44 Dose: 10 mg Lorazepam (Ativan) 0.5 mg PO BID [facility] PRN Reason: Protocol Last Admin: 12/26/17 09:38 Dose: 0.5 mg Multivitamins/Minerals (Therapeutic-M Tab) 1 tab PO 0800 [facility] Last Admin: 12/26/17 09:44 Dose: 1 tab Pantoprazole Sodium (Protonix Ec Tab) 40 mg PO ACB [facility] Last Admin: 12/26/17 09:43 Dose: 40 mg Potassium Chloride (K-Dur 20 Meq Er Tab) 40 meq PO BID [facility] Last Admin: 12/26/17 09:42 Dose: 40 meq Quetiapine Fumarate (Seroquel) 12.5 mg PO HS PRN; Protocol PRN Reason: psychosis, restlessness Thiamine HCl (Vitamin B1 Tab) 100 mg PO DAILY [facility] Last Admin: 12/26/17 09:44 Dose: 100 mg Ziprasidone (Geodon Inj) 10 mg IM BID PRN; Protocol PRN Reason: agitaiton/psychosis - Labs Labs: 12/25/17 05:00 12/25/17 05:00 PT 12.5 SECONDS (9.4-12.5) 12/09/17 10:00 INR 1.09 (0.93-1.08) H 12/09/17 10:00 APTT 28.3 Seconds (25.1-36.5) 11/30/17 05:30 - Constitutional Appears: Non-toxic, No Acute Distress - Head Exam Head Exam: ATRAUMATIC, NORMOCEPHALIC - Eye Exam Eye Exam: EOMI, Normal appearance Pupil Exam: NORMAL ACCOMODATION, PERRL - ENT Exam ENT Exam: Mucous Membranes Moist, Normal Exam - Neck Exam Neck Exam: Normal Inspection. absent: Lymphadenopathy - Respiratory Exam Respiratory Exam: Clear to Ausculation Bilateral, NORMAL BREATHING PATTERN. absent: Accessory Muscle Use, Chest Wall Tenderness, Decreased Breath Sounds, Prolonged Expiratory Phase, Rales, Rhonchi, Wheezes, Respiratory Distress, Stridor - Cardiovascular Exam Cardiovascular Exam: REGULAR RHYTHM, RRR, +S1, +S2. absent: Bradycardia, Tachycardia, Clicks, Diastolic murmur, Gallop, Irregular Rhythm, JVD, Rubs, +S4 , Murmur - GI/Abdominal Exam GI & Abdominal Exam: Soft, Normal Bowel Sounds. absent: Tenderness - Extremities Exam Extremities Exam: Normal Capillary Refill. absent: Calf Tenderness, Joint Swelling, Pedal Edema, Tenderness - Neurological Exam Neurological Exam: Alert, Awake. absent: Oriented x3 - Skin Skin Exam: Dry, Warm Additional comments: Two stage two sacral decubitus ulcers in right gluteal region with minimal surrounding erythema and no fluctuance, induration or discharge. Assessment and Plan - Assessment and Plan (Free Text) Assessment: 57 year old male with an unknown past medical history who was brought in by ambulance after being found with an AMS and covered in feces in his apartment. His mental status has progressively improved since admission. He is currently on IV Rocephin for coagulase negative staph and strep viridans bacteremia, with repeat blood cultures negative. An echo with bubble study couldn't rule out septic vegetations of the aortic valve. ID is following and recommends continuing antibiotics for 4-6 weeks. Cardiology was consulted for TAHIR evaluation to rule out endocarditis and septic vegetations. An MRI Brain showed acute vs. subacute lacunar infarct in the left parietal region. Neurology is following and patient is on stroke prevention medication. Patient was found to have new colonic mass and multifocal pneumonia on CT chest/abdomen/pelvis and concerns for metastatic disease of the liver on abdominal ultrasound. GI was consulted. Flexible sigmoidoscopy/Colonoscopy and TAHIR to be done when consent can be obtained. Plan: 1. Toxic-Metabolic Encephalopathy secondary to Strep Viridans/Mitis and Coag Neg Staph Bacteremia -Repeat blood cultures negative -Day 26 of IV antiobiotic therapy since most recent negative blood culture with 4-6 weeks of total therapy indicated -Continue IV Rocephin (Day 14) -Continue Motrin 400mg Q6 PRN for fever -Continue Geodon PRN and Seroquel HS -Weekly ESR and CRP -TAHIR to be done when consent can be obtained -Psychiatry, Cardiology, Neurology and ID consulted, all recommendations appreciated -PT/OT recommending JOSIAH upon discharge 2. Colonic Neoplasm -Flexible sigmoidoscopy/Colonoscopy to be done when consent can be obtained -GI consulted, all recommendations appreciated 3. Multifocal Pneumonia -Continue IV Rocephin (Day 14) -Continue supplemental oxygen as needed -Continue Xopenex [id number] and continued Mucormyst BID 4. Ischemic Stroke -Continue ASA 81mg and Lipitor 20mg 5. History of Alcohol Abuse/Withdrawal -PO Folate, Thiamine, and MV supplementation -Fall, Seizure and Aspiration precautions 6. DM2 -SSI-High and Accuchecks ACHS -Levemir 10u HS -Carb Consistent Diet 7. HTN -Continue Lisinopril 10mg, Norvasc 10mg PO daily and Hydralazine 10mg IVP Q6 PRN 8. Stage 2 Sacral Decubitus Ulcers with associated Cellulitis -Continue Lotrimin AF 1% ointment -Continue wound care and Q2 repositioning -OOB to chair 9. Hypokalemia -Currently within normal limits -Continue daily supplementation with KCl 40meq BID GI Prophylaxis: Protonix DVT Prophylaxis: Heparin and SCD's Disposition: The process to obtain guardianship has been initiated with psychiatry consulted and having deemed that patient does not have decision making capacity. Based on this patients clinical evaluation, he demonstrates a lack of the necessary judgment, mental capacity and insight into his health status to care for himself. This is likely attributable to his current toxic metabolic encephalopathy and/or ischemic cerebral infarction but other etiologies are possible, including neurocognitive dysfunction related to alcohol abuse, given the limited medical history that has been made available. Patient requires assistance in all ADL's as well as ambulation and does not possess the ability to adequately express his needs or concerns. Given this, patient will require senior care care with 24 hour supervision. Patient is medically clear for discharge to senior care care facility, given that said facility can provide IV antibiotics for the duration of his recommended six week course of therapy for gram positive bacteremia. Patient will also require a legal guardian to offer consent on his behalf for recommended diagnostic testing such as colonoscopy and TAHIR. Patient seen and case discussed with attending, Dr. Charlotte Lim. <Charlotte Lim - Last Filed: 12/26/17 11:33> Objective - Vital Signs/Intake and Output Vital Signs (last 24 hours): Temp Pulse Resp BP Pulse Ox 97 F L 95 H 20 133/82 92 L 12/26/17 08:28 12/26/17 08:28 12/26/17 08:28 12/26/17 09:43 12/26/17 08:28 Intake and Output: 12/26/17 12/26/17 06:59 18:59 Intake Total Balance - Medications Medications: Current Medications Acetylcysteine (Acetylcysteine 20%) 4 ml IH BIDRESP [facility] Last Admin: 12/26/17 07:16 Dose: Not Given Amlodipine Besylate (Norvasc) 10 mg PO DAILY [facility] Last Admin: 12/26/17 09:43 Dose: 10 mg Aspirin (Ecotrin) 81 mg PO DAILY [facility] Last Admin: 12/26/17 09:38 Dose: 81 mg Atorvastatin Calcium (Lipitor) 20 mg PO DIN [facility] Last Admin: 12/25/17 17:28 Dose: 20 mg Clotrimazole (Lotrimin Af 1%) 0 ml TOP BID [facility] Last Admin: 12/25/17 17:29 Dose: 1 applic Folic Acid (Folic Acid) 1 mg PO DAILY [facility] Last Admin: 12/26/17 09:38 Dose: 1 mg Heparin Sodium (Porcine) (Heparin) 5,000 units SC Q12 [facility] PRN Reason: Protocol Last Admin: 12/26/17 09:42 Dose: 5,000 units Hydralazine HCl (Apresoline) 10 mg IVP Q6 PRN PRN Reason: For SBP > 150 Last Admin: 12/13/17 08:32 Dose: 10 mg Ceftriaxone Sodium (Rocephin 2 Gm Ivpb) 2 gm in 100 mls @ 100 mls/hr IVPB DAILY [facility] PRN Reason: Protocol Last Admin: 12/26/17 09:43 Dose: 100 mls/hr Ibuprofen (Motrin Tab) 400 mg PO Q6H PRN PRN Reason: Fever >100.4 F Last Admin: 12/10/17 23:04 Dose: 400 mg Insulin Detemir (Levemir) 10 unit SC HS [facility] Last Admin: 12/25/17 22:20 Dose: 10 unit Insulin Human Regular (Humulin R High) 0 units SC ACHS [facility] PRN Reason: Protocol Last Admin: 12/25/17 23:00 Dose: Not Given Levalbuterol HCl (Xopenex) 0.63 mg IH [id number] [facility] Last Admin: 12/26/17 07:16 Dose: Not Given Lisinopril (Zestril) 10 mg PO DAILY [facility] Last Admin: 12/26/17 09:44 Dose: 10 mg Lorazepam (Ativan) 0.5 mg PO BID [facility] PRN Reason: Protocol Last Admin: 12/26/17 09:38 Dose: 0.5 mg Multivitamins/Minerals (Therapeutic-M Tab) 1 tab PO 0800 [facility] Last Admin: 12/26/17 09:44 Dose: 1 tab Pantoprazole Sodium (Protonix Ec Tab) 40 mg PO ACB [facility] Last Admin: 12/26/17 09:43 Dose: 40 mg Potassium Chloride (K-Dur 20 Meq Er Tab) 40 meq PO BID [facility] Last Admin: 12/26/17 09:42 Dose: 40 meq Quetiapine Fumarate (Seroquel) 12.5 mg PO HS PRN; Protocol PRN Reason: psychosis, restlessness Thiamine HCl (Vitamin B1 Tab) 100 mg PO DAILY [facility] Last Admin: 12/26/17 09:44 Dose: 100 mg Ziprasidone (Geodon Inj) 10 mg IM BID PRN; Protocol PRN Reason: agitaiton/psychosis - Labs Labs: 12/25/17 05:00 12/25/17 05:00 PT 12.5 SECONDS (9.4-12.5) 12/09/17 10:00 INR 1.09 (0.93-1.08) H 12/09/17 10:00 APTT 28.3 Seconds (25.1-36.5) 11/30/17 05:30 Attending/Attestation - Attestation I have personally seen and examined this patient.: Yes I have fully participated in the care of the patient.: Yes I have reviewed all pertinent clinical information, including history, physical exam and plan: Yes Notes (Text): I have seen and examined the patient at bedside. Agree with the above note with the following additions/ exceptions: Briefly this is 57 year old male with unknown past medical history who was brought in via EMS for AMS covered in feces in his apartment. He was found to have right hip cellulitis which has improved. CT chest showed multifocal pneumonia for which he received IV rocephin. Plan is to continue antibiotics for 4-6 weeks. He was also treated with tamiflu for influenza A. He has strep viridians bacateremia for which he is on IV antibiotics. Repeat cultures are negative. Echo was done which could not rule out septic vegetation of AV. Family is not available to give consent for TAHIR. MRI showed acute vs subacute infarct. He is awake, alert and oriented to place and person but not to time. Continue aspirin and lipitor. CT abdomen/ pelvis showed new colonic mass and possible metastatic disease to the liver. GI is recommending sigmoidoscopy however family is not available to give consent for procedure. Prognosis is guarded. Case management is working on guardianship and disposition. Patient has 2 stage 2 sacral decubiti in the right gluteal region. Start zinc and folic acid. Continue thiamine and mvi. Continue levemir for DM. PT recommended JOSIAH. Upon discharge patient will follow up with PMD of choice. Dr Charlotte Lim
--- NOTE | 2017-12-26 18:50 | PN ---
DATE: SUBJECTIVE: Patient is in bed, in no acute distress, nontoxic. PHYSICAL EXAMINATION: VITAL SIGNS: Temperature is 97, blood pressure is 130/80, respiratory rate of 20, heart rate of 95. HEENT: Unremarkable. NECK: Supple. LUNGS: Have decreased breath sounds. HEART: Normal S1, S2. ABDOMEN: Soft, nontender. LABORATORY EXAMINATION: White count of 6.9, hemoglobin of 12, platelets of 282. BUN of 15, creatinine of 0.5. ASSESSMENT AND PLAN: He is a 57-year-old male with sepsis due to Streptococcus viridans and coagulase-negative staphylococcus bacteremia with right gluteal and back cellulitis, status post multifocal healthcare-associated pneumonia on top of influenza, currently on ceftriaxone, today is day #26 of #28 days. We will check on a sed rate and C-reactive protein and the last one was 40, sed rate, and this one is pending from Wednesday and a C-reactive protein is also pending for tomorrow. Daniel Torres MD
[2017-12-26] MEDS: Insulin Reg-HIGH-Coverage SC SCH (22:29)
[2017-12-26] MEDS: Insulin Detemir 100 units/ml Vial (Levemir) SC SCH (22:29)
[2017-12-27] MEDS: Levalbuterol 0.63 MG/3 ML Inhal Soln UD IH SCH ×5 (05:11→19:41)
[2017-12-27] MEDS: Acetylcysteine 20% Inhal Soln (4ml) IH SCH ×2 (07:13→19:40)
--- NOTE | 2017-12-27 09:07 | CP.PCM.PN ---
<Nikita Hurley - Last Filed: 12/27/17 18:27> Subjective - Date & Time of Evaluation Date of Evaluation: 12/27/17 Time of Evaluation: 07:45 - Subjective Subjective: Nikita Hurley DO, PGY-1; Hospitalist Service Patient seen and examined at bedside. Patient knows his birthdate, follows some simple commands, such as able to use right arm to touch nose. Otherwise, the patient is clearly demonstrating some sort of lukas-neglect. He was also defecating in bed at the time of the encounter. Nurse reports patient is cooperative and able to follow commands and even ask for water. Objective - Vital Signs/Intake and Output Vital Signs (last 24 hours): Temp Pulse Resp BP Pulse Ox 97.3 F L 91 H 20 131/83 92 L 12/27/17 08:21 12/27/17 08:21 12/27/17 08:21 12/27/17 08:21 12/27/17 08:21 - Medications Medications: Current Medications Acetylcysteine (Acetylcysteine 20%) 4 ml IH BIDRESP [facility] Last Admin: 12/27/17 07:13 Dose: Not Given Amlodipine Besylate (Norvasc) 10 mg PO DAILY [facility] Last Admin: 12/26/17 09:43 Dose: 10 mg Aspirin (Ecotrin) 81 mg PO DAILY [facility] Last Admin: 12/26/17 09:38 Dose: 81 mg Atorvastatin Calcium (Lipitor) 20 mg PO DIN [facility] Last Admin: 12/26/17 18:41 Dose: 20 mg Clotrimazole (Lotrimin Af 1%) 0 ml TOP BID [facility] Last Admin: 12/25/17 17:29 Dose: 1 applic Folic Acid (Folic Acid) 1 mg PO DAILY [facility] Last Admin: 12/26/17 09:38 Dose: 1 mg Folic Acid (Folic Acid) 1 mg PO DAILY [facility] Heparin Sodium (Porcine) (Heparin) 5,000 units SC Q12 [facility] PRN Reason: Protocol Last Admin: 12/26/17 22:30 Dose: 5,000 units Hydralazine HCl (Apresoline) 10 mg IVP Q6 PRN PRN Reason: For SBP > 150 Last Admin: 12/13/17 08:32 Dose: 10 mg Ceftriaxone Sodium (Rocephin 2 Gm Ivpb) 2 gm in 100 mls @ 100 mls/hr IVPB DAILY [facility] PRN Reason: Protocol Last Admin: 12/26/17 09:43 Dose: 100 mls/hr Ibuprofen (Motrin Tab) 400 mg PO Q6H PRN PRN Reason: Fever >100.4 F Last Admin: 12/10/17 23:04 Dose: 400 mg Insulin Detemir (Levemir) 10 unit SC HS [facility] Last Admin: 12/26/17 22:29 Dose: 10 unit Insulin Human Regular (Humulin R High) 0 units SC ACHS [facility] PRN Reason: Protocol Last Admin: 12/26/17 22:29 Dose: 2 units Levalbuterol HCl (Xopenex) 0.63 mg IH [id number] [facility] Last Admin: 12/27/17 07:13 Dose: Not Given Lisinopril (Zestril) 10 mg PO DAILY [facility] Last Admin: 12/26/17 09:44 Dose: 10 mg Lorazepam (Ativan) 0.5 mg PO BID [facility] PRN Reason: Protocol Last Admin: 12/26/17 18:41 Dose: 0.5 mg Multivitamins/Minerals (Therapeutic-M Tab) 1 tab PO 0800 [facility] Last Admin: 12/26/17 09:44 Dose: 1 tab Pantoprazole Sodium (Protonix Ec Tab) 40 mg PO ACB [facility] Last Admin: 12/26/17 09:43 Dose: 40 mg Potassium Chloride (K-Dur 20 Meq Er Tab) 40 meq PO BID [facility] Last Admin: 12/26/17 18:41 Dose: 40 meq Quetiapine Fumarate (Seroquel) 12.5 mg PO HS PRN; Protocol PRN Reason: psychosis, restlessness Thiamine HCl (Vitamin B1 Tab) 100 mg PO DAILY [facility] Last Admin: 12/26/17 09:44 Dose: 100 mg Zinc Sulfate (Zinc Sulfate 220 Mg Cap) 220 mg PO DAILY [facility] Ziprasidone (Geodon Inj) 10 mg IM BID PRN; Protocol PRN Reason: agitaiton/psychosis - Labs Labs: 12/25/17 05:00 12/25/17 05:00 PT 12.5 SECONDS (9.4-12.5) 12/09/17 10:00 INR 1.09 (0.93-1.08) H 12/09/17 10:00 APTT 28.3 Seconds (25.1-36.5) 11/30/17 05:30 - Constitutional Appears: Non-toxic, No Acute Distress - Head Exam Head Exam: ATRAUMATIC, NORMOCEPHALIC - Eye Exam Eye Exam: EOMI, Normal appearance - ENT Exam ENT Exam: Mucous Membranes Moist - Respiratory Exam Respiratory Exam: Clear to Ausculation Bilateral, NORMAL BREATHING PATTERN. absent: Accessory Muscle Use - Cardiovascular Exam Cardiovascular Exam: +S1, +S2. absent: Tachycardia - GI/Abdominal Exam GI & Abdominal Exam: Soft - Neurological Exam Neurological Exam: Awake. absent: Oriented x3 Additional comments: patient is able to follow some simple commands, such as touching finger to nose with right upper extremity; unable to move right lower extremity - Psychiatric Exam Psychiatric exam: Flat Affect - Skin Skin Exam: Warm Additional comments: Two stage one sacral decubitus ulcers in right gluteal region without surrounding erythema, fluctuance, induration or discharge. Assessment and Plan - Assessment and Plan (Free Text) Assessment: 57 year old male with unknown past medical history who was brought in via EMS for AMS covered in feces in his apartment. 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 He is on IV ceftriaxone for his bacteremia and is pending Transesophageal Echocardiogram and colonoscopy to rule out endocarditis and colon cancer, respectively. Important to note, patient is unable to give consent for TAHIR and colonoscopy secondary to being mental incompetent. Plan: 1) AMS resolved; patient has returned to baseline mentation. - Continue with delirium precautions 2) Bacteremia with Strep Viridans/Mitis and Coag Neg Staph Bacteremia -Day 26 of IV antiobiotic therapy since most recent negative blood culture with 4-6 weeks of total therapy indicated -Continue IV Rocephin (Day 15) as of 12/27 -Continue Motrin 400mg Q6 PRN for fever -Weekly ESR and CRP -TAHIR to be done when consent can be obtained -Psychiatry, Cardiology, Neurology and ID consulted, all recommendations appreciated -PT/OT recommending JOSIAH upon discharge 3) Colonic Neoplasm -Flexible sigmoidoscopy/Colonoscopy to be done when consent can be obtained -GI consulted, all recommendations appreciated 4) Multifocal Pneumonia in the setting of recent Influenzae A infection -Continue IV Rocephin (Day 15) -Continue supplemental oxygen as needed -Continue Xopenex [id number] and continued Mucormyst BID 5) Ischemic Stroke -Continue ASA 81mg and Lipitor 20mg 6) History of Alcohol Abuse/Withdrawal -PO Folate, Thiamine, and MV supplementation -Fall, Seizure and Aspiration precautions 6) DM II -SSI-High and Accuchecks ACHS -Levemir 10u HS -Carb Consistent Diet 7) HTN -Continue Lisinopril 10mg - Norvasc 10mg PO daily - Hydralazine 10mg IVP Q6 PRN 8) Stage 2 Sacral Decubitus Ulcers with associated Cellulitis -Continue Lotrimin AF 1% ointment -Continue wound care and Q2 repositioning -OOB to chair 9) Hypokalemia -Currently within normal limits -Continue daily supplementation with KCl 40meq BID 10) Affective disorder, unspecified - Geodon PRN - Seroquel HS - Ativan 0.5 mg BID [facility] GI Prophylaxis: Protonix DVT Prophylaxis: Heparin and SCD's <Graeme Lang - Last Filed: 01/07/18 14:48> Objective - Vital Signs/Intake and Output Vital Signs (last 24 hours): Temp Pulse Resp BP Pulse Ox 97.5 F L 94 H 20 135/89 95 01/07/18 06:00 01/07/18 10:47 01/07/18 06:00 01/07/18 10:49 01/07/18 06:00 Intake and Output: 01/07/18 01/07/18 06:59 18:59 Intake Total 1140 Balance 1140 - Medications Medications: Current Medications Amlodipine Besylate (Norvasc) 10 mg PO DAILY [facility] Last Admin: 01/07/18 10:49 Dose: 10 mg Aspirin (Ecotrin) 81 mg PO DAILY [facility] Last Admin: 01/07/18 10:47 Dose: 81 mg Atorvastatin Calcium (Lipitor) 20 mg PO DIN [facility] Last Admin: 01/06/18 17:09 Dose: 20 mg Clotrimazole (Lotrimin Af 1%) 0 ml TOP BID [facility] Last Admin: 01/07/18 10:50 Dose: 1 applic Enoxaparin Sodium (Lovenox) 40 mg SC DAILY [facility] PRN Reason: Protocol Last Admin: 01/07/18 10:49 Dose: 40 mg Folic Acid (Folic Acid) 1 mg PO DAILY [facility] Last Admin: 01/07/18 10:49 Dose: 1 mg Hydralazine HCl (Apresoline) 10 mg IVP Q6 PRN PRN Reason: For SBP > 150 Last Admin: 12/13/17 08:32 Dose: 10 mg Ceftriaxone Sodium (Rocephin 2 Gm Ivpb) 2 gm in 100 mls @ 100 mls/hr IVPB DAILY [facility] PRN Reason: Protocol Stop: 01/16/18 10:01 Last Admin: 01/07/18 10:49 Dose: 100 mls/hr Insulin Detemir (Levemir) 10 unit SC HS [facility] Last Admin: 01/06/18 23:19 Dose: 10 unit Insulin Human Lispro (Humalog Low) 0 units SC ACHS [facility] PRN Reason: Protocol Last Admin: 01/07/18 12:22 Dose: 2 units Insulin Human Regular (Humulin R) 3 units SC AC [facility] Last Admin: 01/07/18 12:23 Dose: 3 units Lisinopril (Zestril) 10 mg PO DAILY [facility] Last Admin: 01/07/18 10:47 Dose: 10 mg Lorazepam (Ativan) 0.5 mg PO BID PRN; Protocol PRN Reason: anxiety and restlessness Multivitamins/Minerals (Therapeutic-M Tab) 1 tab PO 0800 [facility] Last Admin: 01/07/18 10:50 Dose: 1 tab Pantoprazole Sodium (Protonix Ec Tab) 40 mg PO 0600 [facility] Last Admin: 01/07/18 06:53 Dose: 40 mg Thiamine HCl (Vitamin B1 Tab) 100 mg PO DAILY [facility] Last Admin: 01/07/18 10:47 Dose: 100 mg Zinc Sulfate (Zinc Sulfate 220 Mg Cap) 220 mg PO DAILY [facility] Last Admin: 01/07/18 10:47 Dose: 220 mg - Labs Labs: 01/03/18 05:20 01/03/18 05:20 PT 12.5 SECONDS (9.4-12.5) 12/09/17 10:00 INR 1.09 (0.93-1.08) H 12/09/17 10:00 APTT 28.3 Seconds (25.1-36.5) 11/30/17 05:30 Attending/Attestation - Attestation I have personally seen and examined this patient.: Yes I have fully participated in the care of the patient.: Yes I have reviewed all pertinent clinical information, including history, physical exam and plan: Yes Notes (Text): 57 year old male with unknown past medical history who was brought in via EMS for AMS covered in feces in his apartment. 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 He is on IV ceftriaxone for his bacteremia and is pending Transesophageal Echocardiogram and colonoscopy to rule out endocarditis and colon cancer, respectively. Important to note, patient is unable to give consent for TAHIR and colonoscopy secondary to being mental incompetent. Plan: 1) AMS resolved; patient has returned to baseline mentation. 2) Bacteremia with Strep Viridans/Mitis and Coag Neg Staph Bacteremia 3) Colonic Neoplasm 4) Multifocal Pneumonia in the setting of recent Influenzae A infection 5) Ischemic Stroke 6) History of Alcohol Abuse/Withdrawal 7) DM II 8) HTN
[2017-12-27] MEDS: cefTRIAXone 2 GM IN NS 2 GM/100 ML BAG IVPB SCH (10:49)
[2017-12-27] MEDS: Multivitamin With Minerals Tab PO SCH (10:50)
[2017-12-27] MEDS: Potassium Chloride 20 mEq ER Tab PO SCH ×2 (10:50→17:29)
[2017-12-27] MEDS: Pantoprazole 40 mg EC Tab PO SCH (10:51)
[2017-12-27] MEDS: Clotrimazole 1% Top Soln(10 ml) TOP SCH ×2 (10:53→17:34)
[2017-12-27] MEDS: Insulin Reg-HIGH-Coverage SC SCH ×4 (11:20→22:31)
--- NOTE | 2017-12-27 14:40 | CP.PCM.PN ---
Subjective - Date & Time of Evaluation Date of Evaluation: 12/27/17 Time of Evaluation: 11:20 - Subjective Subjective: No fevers, no distress, no diarrhea. Objective - Vital Signs/Intake and Output Vital Signs (last 24 hours): Temp Pulse Resp BP Pulse Ox 97.3 F L 91 H 20 131/83 92 L 12/27/17 08:21 12/27/17 10:51 12/27/17 08:21 12/27/17 10:51 12/27/17 08:21 - Medications Medications: Current Medications Acetylcysteine (Acetylcysteine 20%) 4 ml IH BIDRESP [facility] Last Admin: 12/27/17 07:13 Dose: Not Given Amlodipine Besylate (Norvasc) 10 mg PO DAILY [facility] Last Admin: 12/27/17 10:50 Dose: 10 mg Aspirin (Ecotrin) 81 mg PO DAILY [facility] Last Admin: 12/27/17 10:51 Dose: 81 mg Atorvastatin Calcium (Lipitor) 20 mg PO DIN [facility] Last Admin: 12/26/17 18:41 Dose: 20 mg Clotrimazole (Lotrimin Af 1%) 0 ml TOP BID [facility] Last Admin: 12/27/17 10:53 Dose: 1 applic Folic Acid (Folic Acid) 1 mg PO DAILY [facility] Last Admin: 12/27/17 10:50 Dose: 1 mg Folic Acid (Folic Acid) 1 mg PO DAILY [facility] Last Admin: 12/27/17 10:51 Dose: Not Given Heparin Sodium (Porcine) (Heparin) 5,000 units SC Q12 [facility] PRN Reason: Protocol Last Admin: 12/27/17 10:50 Dose: 5,000 units Hydralazine HCl (Apresoline) 10 mg IVP Q6 PRN PRN Reason: For SBP > 150 Last Admin: 12/13/17 08:32 Dose: 10 mg Ceftriaxone Sodium (Rocephin 2 Gm Ivpb) 2 gm in 100 mls @ 100 mls/hr IVPB DAILY [facility] PRN Reason: Protocol Last Admin: 12/27/17 10:49 Dose: 100 mls/hr Ibuprofen (Motrin Tab) 400 mg PO Q6H PRN PRN Reason: Fever >100.4 F Last Admin: 12/10/17 23:04 Dose: 400 mg Insulin Detemir (Levemir) 10 unit SC HS [facility] Last Admin: 12/26/17 22:29 Dose: 10 unit Insulin Human Regular (Humulin R High) 0 units SC ACHS [facility] PRN Reason: Protocol Last Admin: 12/27/17 11:20 Dose: Not Given Levalbuterol HCl (Xopenex) 0.63 mg IH [id number] [facility] Last Admin: 12/27/17 11:06 Dose: Not Given Lisinopril (Zestril) 10 mg PO DAILY [facility] Last Admin: 12/27/17 10:51 Dose: 10 mg Lorazepam (Ativan) 0.5 mg PO BID [facility] PRN Reason: Protocol Last Admin: 12/27/17 10:51 Dose: 0.5 mg Multivitamins/Minerals (Therapeutic-M Tab) 1 tab PO 0800 [facility] Last Admin: 12/27/17 10:50 Dose: 1 tab Pantoprazole Sodium (Protonix Ec Tab) 40 mg PO ACB [facility] Last Admin: 12/27/17 10:51 Dose: 40 mg Potassium Chloride (K-Dur 20 Meq Er Tab) 40 meq PO BID [facility] Last Admin: 12/27/17 10:50 Dose: 40 meq Quetiapine Fumarate (Seroquel) 12.5 mg PO HS PRN; Protocol PRN Reason: psychosis, restlessness Thiamine HCl (Vitamin B1 Tab) 100 mg PO DAILY [facility] Last Admin: 12/27/17 10:50 Dose: 100 mg Zinc Sulfate (Zinc Sulfate 220 Mg Cap) 220 mg PO DAILY [facility] Last Admin: 12/27/17 10:50 Dose: 220 mg Ziprasidone (Geodon Inj) 10 mg IM BID PRN; Protocol PRN Reason: agitaiton/psychosis - Labs Labs: 12/25/17 05:00 12/25/17 05:00 PT 12.5 SECONDS (9.4-12.5) 12/09/17 10:00 INR 1.09 (0.93-1.08) H 12/09/17 10:00 APTT 28.3 Seconds (25.1-36.5) 11/30/17 05:30 - Constitutional Appears: Chronically Ill - Head Exam Head Exam: NORMAL INSPECTION - Neck Exam Neck Exam: absent: Meningismus - Respiratory Exam Respiratory Exam: Decreased Breath Sounds - Cardiovascular Exam Cardiovascular Exam: +S1, +S2 - GI/Abdominal Exam GI & Abdominal Exam: Soft. absent: Tenderness Assessment and Plan - Assessment and Plan (Free Text) Plan: Assessment sepsis due to strep viridans and CoNS bacteremia from right gluteal and back cellulitis S/P multifocal HCAP on top of Influenza A infection R/O Sammie infection of sacral area as well Plan continue Rocephin for the Strep viridans bacteremia (would continue 4-6 weeks of Rocephin with weekly ESR, CRP, CBC, CMP) day 27 of 28- unable to do TAHIR since patient unable to give consent and patient does not have family to give consent follow up CRP today to see if we need to prolong further the antibiotics will continue to follow clinically
[2017-12-27] MEDS: Insulin Detemir 100 units/ml Vial (Levemir) SC SCH (22:34)
[2017-12-28] MEDS: Levalbuterol 0.63 MG/3 ML Inhal Soln UD IH SCH ×5 (02:48→16:01)
[2017-12-28 06:36] LABS: BASO # 0.02 K/mm3 (0.0-2.0); BASO % 0.3 % (0.0-3.0); EOS # 0.1 (0.0-0.7); EOS % 1.8 % (1.5-5.0); GRAN # 3.21 (1.4-6.5); GRAN % 47.9 % (50.0-68.0); HEMOGLOBIN 12.8 g/dL (14.0-18.0); LYMPH # 2.6 (1.2-3.4); LYMPH % 39.1 % (22.0-35.0); MEAN CELL VOLUME 88.3 fl (80.0-105.0); MEAN CORPUSCULAR HEMOGLOBIN 28.8 pg (25.0-35.0); MEAN CORPUSCULAR HGB CONC 32.7 g/dl (31.0-37.0); MEAN PLATELET VOLUME 9.8 fl (7.0-11.0); MONO # 0.7 (0.1-0.6); MONO % 10.9 % (1.0-6.0); RBC 4.44 10^6/uL (3.5-6.1); RED CELL DISTRIBUTION WIDTH 16.7 % (11.5-14.5); WHITE BLOOD COUNT 6.7 10^3/ul (4.5-11.0)
[2017-12-28 06:50] LABS: ALB/GLOB RATIO 1.1 (1.1-1.8); ALBUMIN 3.7 g/dL (3.0-4.8); ALT/SGPT 29 U/L (7-56); AST/SGOT 29 U/L (17-59); BLOOD UREA NITROGEN 16 mg/dL (7-21); CALCIUM 10.4 mg/dL (8.4-10.5); GFR NON-AFRICAN AMERICAN > 60
[2017-12-28] MEDS: Acetylcysteine 20% Inhal Soln (4ml) IH SCH (07:14)
[2017-12-28] MEDS: Insulin Reg-HIGH-Coverage SC SCH ×4 (07:54→21:37)
[2017-12-28] MEDS: cefTRIAXone 2 GM IN NS 2 GM/100 ML BAG IVPB SCH (09:52)
[2017-12-28] MEDS: Clotrimazole 1% Top Soln(10 ml) TOP SCH ×2 (09:52→17:40)
[2017-12-28] MEDS: Multivitamin With Minerals Tab PO SCH (09:53)
[2017-12-28] MEDS: Potassium Chloride 20 mEq ER Tab PO SCH ×2 (09:53→17:39)
[2017-12-28] MEDS: Pantoprazole 40 mg EC Tab PO SCH (09:54)
--- NOTE | 2017-12-28 16:08 | CP.PCM.PN ---
Subjective - Date & Time of Evaluation Date of Evaluation: 12/28/17 Time of Evaluation: 10:55 - Subjective Subjective: Comfortable in bed, no fevers, not in distress. Objective - Vital Signs/Intake and Output Vital Signs (last 24 hours): Temp Pulse Resp BP Pulse Ox 98.7 F 98 H 20 116/75 95 12/28/17 09:09 12/28/17 09:09 12/28/17 09:09 12/28/17 09:09 12/28/17 09:09 Intake and Output: 12/28/17 12/28/17 06:59 18:59 Intake Total 880 240 Balance 880 240 - Medications Medications: Current Medications Acetylcysteine (Acetylcysteine 20%) 4 ml IH BIDRESP [facility] Last Admin: 12/28/17 07:14 Dose: Not Given Amlodipine Besylate (Norvasc) 10 mg PO DAILY [facility] Last Admin: 12/27/17 10:50 Dose: 10 mg Aspirin (Ecotrin) 81 mg PO DAILY [facility] Last Admin: 12/27/17 10:51 Dose: 81 mg Atorvastatin Calcium (Lipitor) 20 mg PO DIN [facility] Last Admin: 12/27/17 17:29 Dose: 20 mg Clotrimazole (Lotrimin Af 1%) 0 ml TOP BID [facility] Last Admin: 12/27/17 17:34 Dose: 1 applic Folic Acid (Folic Acid) 1 mg PO DAILY [facility] Last Admin: 12/27/17 10:50 Dose: 1 mg Folic Acid (Folic Acid) 1 mg PO DAILY [facility] Last Admin: 12/27/17 10:51 Dose: Not Given Heparin Sodium (Porcine) (Heparin) 5,000 units SC Q12 [facility] PRN Reason: Protocol Last Admin: 12/27/17 22:30 Dose: 5,000 units Hydralazine HCl (Apresoline) 10 mg IVP Q6 PRN PRN Reason: For SBP > 150 Last Admin: 12/13/17 08:32 Dose: 10 mg Ceftriaxone Sodium (Rocephin 2 Gm Ivpb) 2 gm in 100 mls @ 100 mls/hr IVPB DAILY [facility] PRN Reason: Protocol Last Admin: 12/27/17 10:49 Dose: 100 mls/hr Ibuprofen (Motrin Tab) 400 mg PO Q6H PRN PRN Reason: Fever >100.4 F Last Admin: 12/10/17 23:04 Dose: 400 mg Insulin Detemir (Levemir) 10 unit SC HS [facility] Last Admin: 12/27/17 22:34 Dose: 10 unit Insulin Human Regular (Humulin R High) 0 units SC ACHS [facility] PRN Reason: Protocol Last Admin: 12/27/17 22:31 Dose: Not Given Levalbuterol HCl (Xopenex) 0.63 mg IH [id number] [facility] Last Admin: 12/28/17 07:14 Dose: Not Given Lisinopril (Zestril) 10 mg PO DAILY [facility] Last Admin: 12/27/17 10:51 Dose: 10 mg Lorazepam (Ativan) 0.5 mg PO BID [facility] PRN Reason: Protocol Last Admin: 12/27/17 17:29 Dose: 0.5 mg Multivitamins/Minerals (Therapeutic-M Tab) 1 tab PO 0800 [facility] Last Admin: 12/27/17 10:50 Dose: 1 tab Pantoprazole Sodium (Protonix Ec Tab) 40 mg PO ACB [facility] Last Admin: 12/27/17 10:51 Dose: 40 mg Potassium Chloride (K-Dur 20 Meq Er Tab) 40 meq PO BID [facility] Last Admin: 12/27/17 17:29 Dose: 40 meq Quetiapine Fumarate (Seroquel) 12.5 mg PO HS PRN; Protocol PRN Reason: psychosis, restlessness Thiamine HCl (Vitamin B1 Tab) 100 mg PO DAILY [facility] Last Admin: 12/27/17 10:50 Dose: 100 mg Zinc Sulfate (Zinc Sulfate 220 Mg Cap) 220 mg PO DAILY [facility] Last Admin: 12/27/17 10:50 Dose: 220 mg Ziprasidone (Geodon Inj) 10 mg IM BID PRN; Protocol PRN Reason: agitaiton/psychosis - Labs Labs: 12/28/17 05:45 12/28/17 05:45 PT 12.5 SECONDS (9.4-12.5) 12/09/17 10:00 INR 1.09 (0.93-1.08) H 12/09/17 10:00 APTT 28.3 Seconds (25.1-36.5) 11/30/17 05:30 - Constitutional Appears: Chronically Ill - ENT Exam ENT Exam: Mucous Membranes Moist - Neck Exam Neck Exam: absent: Meningismus - Respiratory Exam Respiratory Exam: Decreased Breath Sounds - Cardiovascular Exam Cardiovascular Exam: +S1, +S2 - GI/Abdominal Exam GI & Abdominal Exam: Soft. absent: Tenderness Assessment and Plan - Assessment and Plan (Free Text) Plan: Assessment sepsis due to strep viridans and CoNS bacteremia from right gluteal and back cellulitis S/P multifocal HCAP on top of Influenza A infection R/O Sammie infection of sacral area as well Plan continue Rocephin for the Strep viridans bacteremia (would continue 4-6 weeks of Rocephin with weekly ESR, CRP, CBC, CMP) day 28 of 28-42 days; unable to do TAHIR since patient unable to give consent and patient does not have family to give consent CRP still elevated - would recommend to continue until 6 weeks of therapy will continue to follow clinically
--- NOTE | 2017-12-28 16:50 | CP.PCM.PN ---
<Nikita Hurley - Last Filed: 12/28/17 16:54> Subjective - Date & Time of Evaluation Date of Evaluation: 12/28/17 Time of Evaluation: 07:00 - Subjective Subjective: Nikita Hurley DO, PGY-1: Hospitalist Service Patient seen and examined at bedside. Patient states he can't wait to get out of the hospital and that it is making him feel miserable. Nurse reports no events overnight. Objective - Vital Signs/Intake and Output Vital Signs (last 24 hours): Temp Pulse Resp BP Pulse Ox 98.7 F 98 H 20 116/75 95 12/28/17 09:09 12/28/17 09:09 12/28/17 09:09 12/28/17 09:54 12/28/17 09:09 Intake and Output: 12/28/17 12/28/17 06:59 18:59 Intake Total 880 240 Balance 880 240 - Medications Medications: Current Medications Acetylcysteine (Acetylcysteine 20%) 4 ml IH BIDRESP [facility] Last Admin: 12/28/17 07:14 Dose: Not Given Amlodipine Besylate (Norvasc) 10 mg PO DAILY [facility] Last Admin: 12/28/17 09:54 Dose: 10 mg Aspirin (Ecotrin) 81 mg PO DAILY [facility] Last Admin: 12/28/17 09:53 Dose: 81 mg Atorvastatin Calcium (Lipitor) 20 mg PO DIN [facility] Last Admin: 12/27/17 17:29 Dose: 20 mg Clotrimazole (Lotrimin Af 1%) 0 ml TOP BID [facility] Last Admin: 12/28/17 09:52 Dose: 1 applic Folic Acid (Folic Acid) 1 mg PO DAILY [facility] Last Admin: 12/28/17 09:53 Dose: 1 mg Folic Acid (Folic Acid) 1 mg PO DAILY [facility] Last Admin: 12/28/17 09:55 Dose: Not Given Heparin Sodium (Porcine) (Heparin) 5,000 units SC Q12 [facility] PRN Reason: Protocol Last Admin: 12/28/17 09:52 Dose: 5,000 units Hydralazine HCl (Apresoline) 10 mg IVP Q6 PRN PRN Reason: For SBP > 150 Last Admin: 12/13/17 08:32 Dose: 10 mg Ceftriaxone Sodium (Rocephin 2 Gm Ivpb) 2 gm in 100 mls @ 100 mls/hr IVPB DAILY [facility]I PRN Reason: Protocol Last Admin: 12/28/17 09:52 Dose: 100 mls/hr Ibuprofen (Motrin Tab) 400 mg PO Q6H PRN PRN Reason: Fever >100.4 F Last Admin: 12/10/17 23:04 Dose: 400 mg Insulin Detemir (Levemir) 10 unit SC HS [facility] Last Admin: 12/27/17 22:34 Dose: 10 unit Insulin Human Regular (Humulin R High) 0 units SC ACHS [facility]I PRN Reason: Protocol Last Admin: 12/28/17 13:14 Dose: 4 units Levalbuterol HCl (Xopenex) 0.63 mg IH I1HUROS [facility] Last Admin: 12/28/17 16:01 Dose: Not Given Lisinopril (Zestril) 10 mg PO DAILY [facility] Last Admin: 12/28/17 09:53 Dose: 10 mg Lorazepam (Ativan) 0.5 mg PO BID [facility] PRN Reason: Protocol Last Admin: 12/28/17 09:53 Dose: 0.5 mg Multivitamins/Minerals (Therapeutic-M Tab) 1 tab PO 0800 [facility] Last Admin: 12/28/17 09:53 Dose: 1 tab Pantoprazole Sodium (Protonix Ec Tab) 40 mg PO ACB [facility] Last Admin: 12/28/17 09:54 Dose: 40 mg Potassium Chloride (K-Dur 20 Meq Er Tab) 40 meq PO BID [facility] Last Admin: 12/28/17 09:53 Dose: 40 meq Quetiapine Fumarate (Seroquel) 12.5 mg PO HS PRN; Protocol PRN Reason: psychosis, restlessness Thiamine HCl (Vitamin B1 Tab) 100 mg PO DAILY [facility] Last Admin: 12/28/17 09:53 Dose: 100 mg Zinc Sulfate (Zinc Sulfate 220 Mg Cap) 220 mg PO DAILY [facility] Last Admin: 12/28/17 09:53 Dose: 220 mg Ziprasidone (Geodon Inj) 10 mg IM BID PRN; Protocol PRN Reason: agitaiton/psychosis - Labs Labs: 12/28/17 05:45 12/28/17 05:45 PT 12.5 SECONDS (9.4-12.5) 12/09/17 10:00 INR 1.09 (0.93-1.08) H 12/09/17 10:00 APTT 28.3 Seconds (25.1-36.5) 11/30/17 05:30 - Constitutional Appears: Well, Non-toxic - Head Exam Head Exam: ATRAUMATIC, NORMOCEPHALIC - Eye Exam Eye Exam: EOMI, Normal appearance - ENT Exam ENT Exam: Mucous Membranes Moist - Neck Exam Neck Exam: Normal Inspection - Respiratory Exam Respiratory Exam: NORMAL BREATHING PATTERN. absent: Accessory Muscle Use - Cardiovascular Exam Cardiovascular Exam: +S1, +S2. absent: Tachycardia - GI/Abdominal Exam GI & Abdominal Exam: Soft - Extremities Exam Extremities Exam: Normal Inspection - Neurological Exam Neurological Exam: Alert, Awake - Psychiatric Exam Psychiatric exam: Depressed - Skin Skin Exam: Dry, Intact, Normal Color, Warm Assessment and Plan - Assessment and Plan (Free Text) Assessment: day 28 of 28-42 days, Infectious Disease recommends 36 days of IV Ceftriaxone Plan: 57 year old male with unknown past medical history who was brought in via EMS for AMS covered in feces in his apartment. 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 He is on IV ceftriaxone for his bacteremia and is pending Transesophageal Echocardiogram and colonoscopy to rule out endocarditis and colon cancer, respectively. Important to note, patient is unable to give consent for TAHIR and colonoscopy secondary to being mental incompetent. Plan: 1) AMS resolved; patient has returned to baseline mentation. - Continue with delirium precautions 2) Bacteremia with Strep Viridans/Mitis and Coag Neg Staph Bacteremia -Day 28 of 36 of IV Ceftriaxone therapy; course extended secondary to increased ESR/CRP -Continue Motrin 400mg Q6 PRN for fever -Will continue weekly ESR and CRP -TAHIR to be done when consent can be obtained -Psychiatry, Cardiology, Neurology and ID consulted, all recommendations appreciated -PT/OT recommending JOSIAH upon discharge 3) Colonic Neoplasm -Flexible sigmoidoscopy/Colonoscopy to be done when consent can be obtained -GI consulted, all recommendations appreciated 4) Multifocal Pneumonia in the setting of recent Influenzae A infection -Continue with Ceftriaxone 5) Ischemic Stroke -Continue ASA 81mg and Lipitor 20mg 6) History of Alcohol Abuse/Withdrawal - PO Folate,Thiamine, and Multivitamin supplements - Fall, Seizure, and Aspiration precautions 6) DM II -SSI-High and Accuchecks ACHS -Levemir 10 units HS -Carb Consistent Diet 7) HTN - Continue Lisinopril 10mg - Norvasc 10mg PO daily 8) Stage 2 Sacral Decubitus Ulcers with associated Cellulitis - Continue Lotrimin AF 1% ointment - Continue wound care and Q2 repositioning - OOB to chair; patient is refusing at the moment. 9) Hypokalemia -Continue daily supplementation with KCl 40meq BID 10) Affective disorder, unspecified - Geodon PRN - Seroquel HS - Ativan 0.5 mg BID [facility] Impression: Patient's incompetence may need to re-evaluated given his more recent responsiveness/appropriateness to questioning and demonstrating clear thoughts and reasonable actions/decision. As always, will defer to psychiatry and hope some in-roads may be made. Case seen and discussed with attending physician Dr. Lang <Sixto Galo - Last Filed: 12/29/17 15:46> Objective - Vital Signs/Intake and Output Vital Signs (last 24 hours): Temp Pulse Resp BP Pulse Ox 97.7 F 102 H 20 136/87 94 L 12/29/17 06:00 12/29/17 11:00 12/29/17 06:00 12/29/17 12:37 12/29/17 06:00 Intake and Output: 12/29/17 12/29/17 06:59 18:59 Intake Total 900 1080 Balance 900 1080 - Medications Medications: Current Medications Amlodipine Besylate (Norvasc) 10 mg PO DAILY [facility] Last Admin: 12/29/17 12:37 Dose: 10 mg Aspirin (Ecotrin) 81 mg PO DAILY [facility] Last Admin: 12/29/17 12:37 Dose: 81 mg Atorvastatin Calcium (Lipitor) 20 mg PO DIN [facility] Last Admin: 12/28/17 17:40 Dose: 20 mg Clotrimazole (Lotrimin Af 1%) 0 ml TOP BID [facility] Last Admin: 12/29/17 12:39 Dose: 1 applic Folic Acid (Folic Acid) 1 mg PO DAILY [facility] Last Admin: 12/29/17 12:37 Dose: 1 mg Heparin Sodium (Porcine) (Heparin) 5,000 units SC Q12 [facility] PRN Reason: Protocol Last Admin: 12/29/17 12:42 Dose: 5,000 units Hydralazine HCl (Apresoline) 10 mg IVP Q6 PRN PRN Reason: For SBP > 150 Last Admin: 12/13/17 08:32 Dose: 10 mg Ceftriaxone Sodium (Rocephin 2 Gm Ivpb) 2 gm in 100 mls @ 100 mls/hr IVPB DAILY [facility] PRN Reason: Protocol Last Admin: 12/29/17 12:40 Dose: 100 mls/hr Ibuprofen (Motrin Tab) 400 mg PO Q6H PRN PRN Reason: Fever >100.4 F Last Admin: 12/10/17 23:04 Dose: 400 mg Insulin Detemir (Levemir) 10 unit SC HS [facility] Last Admin: 12/28/17 22:00 Dose: Not Given Insulin Human Regular (Humulin R High) 0 units SC ACHS [facility] PRN Reason: Protocol Last Admin: 12/29/17 12:48 Dose: 4 units Lisinopril (Zestril) 10 mg PO DAILY [facility] Last Admin: 12/29/17 11:00 Dose: 10 mg Lorazepam (Ativan) 0.5 mg PO BID [facility] PRN Reason: Protocol Last Admin: 12/29/17 12:36 Dose: 0.5 mg Multivitamins/Minerals (Therapeutic-M Tab) 1 tab PO 0800 [facility] Last Admin: 12/29/17 12:42 Dose: 1 tab Pantoprazole Sodium (Protonix Ec Tab) 40 mg PO ACB [facility] Last Admin: 12/29/17 08:30 Dose: 40 mg Potassium Chloride (K-Dur 20 Meq Er Tab) 40 meq PO BID [facility] Last Admin: 12/29/17 12:37 Dose: 40 meq Quetiapine Fumarate (Seroquel) 12.5 mg PO HS PRN; Protocol PRN Reason: psychosis, restlessness Thiamine HCl (Vitamin B1 Tab) 100 mg PO DAILY [facility] Last Admin: 12/29/17 12:42 Dose: 100 mg Zinc Sulfate (Zinc Sulfate 220 Mg Cap) 220 mg PO DAILY [facility] Last Admin: 12/29/17 12:45 Dose: 220 mg Ziprasidone (Geodon Inj) 10 mg IM BID PRN; Protocol PRN Reason: agitaiton/psychosis - Labs Labs: 12/28/17 05:45 12/28/17 05:45 PT 12.5 SECONDS (9.4-12.5) 12/09/17 10:00 INR 1.09 (0.93-1.08) H 12/09/17 10:00 APTT 28.3 Seconds (25.1-36.5) 11/30/17 05:30 Attending/Attestation - Attestation I have personally seen and examined this patient.: Yes I have fully participated in the care of the patient.: Yes I have reviewed all pertinent clinical information, including history, physical exam and plan: Yes Notes (Text): 12/29/17 15:39 57 year old male who was brought in for altered mental status, found in his apartment covered in feces. He was treated for right hip/buttock cellulitis, influenza and multifocal pneumonia. He was also found to have acute/subacute infarct on MRI. Continue with aspirin and statin. Monitor LFTs while on statin. PT is recommending JOSIAH upon discharge. He was found to have strep viridians bacteremia who which he is on iv ceftriaxone (day ). TTE could not rule out vegetation. TAHIR at this time cannot be obtained due to lack of consent. He was also found to have colon mass and liver lesions. GI recommended possible flex sig, colonoscopy vs liver biopsy. However again consent is not able to be obtained at this time. Psychiatry evaluation was appreciated. SW is also working on guardianship. Will request for psychiatry follow up and SW updates. He is on norvasc and lisinopril for hypertension and levemir for diabetes. Sixto Galo MD Hospitalist.
[2017-12-28] MEDS: Insulin Detemir 100 units/ml Vial (Levemir) SC SCH (22:00)
[2017-12-29] MEDS: Pantoprazole 40 mg EC Tab PO SCH (08:30)
[2017-12-29] MEDS: Insulin Reg-HIGH-Coverage SC SCH ×4 (08:42→21:57)
[2017-12-29] MEDS: Potassium Chloride 20 mEq ER Tab PO SCH ×2 (12:37→18:19)
[2017-12-29] MEDS: Clotrimazole 1% Top Soln(10 ml) TOP SCH ×2 (12:39→18:19)
[2017-12-29] MEDS: cefTRIAXone 2 GM IN NS 2 GM/100 ML BAG IVPB SCH (12:40)
[2017-12-29] MEDS: Multivitamin With Minerals Tab PO SCH (12:42)
--- NOTE | 2017-12-29 17:24 | CP.PCM.PN ---
Subjective - Date & Time of Evaluation Date of Evaluation: 12/29/17 Time of Evaluation: 10:40 - Subjective Subjective: No fevers, not in distress. Objective - Vital Signs/Intake and Output Vital Signs (last 24 hours): Temp Pulse Resp BP Pulse Ox 97.7 F 102 H 20 136/87 94 L 12/29/17 06:00 12/29/17 11:00 12/29/17 06:00 12/29/17 12:37 12/29/17 06:00 Intake and Output: 12/29/17 12/29/17 06:59 18:59 Intake Total 900 1080 Balance 900 1080 - Medications Medications: Current Medications Amlodipine Besylate (Norvasc) 10 mg PO DAILY [facility] Last Admin: 12/29/17 12:37 Dose: 10 mg Aspirin (Ecotrin) 81 mg PO DAILY [facility] Last Admin: 12/29/17 12:37 Dose: 81 mg Atorvastatin Calcium (Lipitor) 20 mg PO DIN [facility] Last Admin: 12/28/17 17:40 Dose: 20 mg Clotrimazole (Lotrimin Af 1%) 0 ml TOP BID [facility] Last Admin: 12/29/17 12:39 Dose: 1 applic Folic Acid (Folic Acid) 1 mg PO DAILY [facility] Last Admin: 12/29/17 12:37 Dose: 1 mg Heparin Sodium (Porcine) (Heparin) 5,000 units SC Q12 [facility] PRN Reason: Protocol Last Admin: 12/29/17 12:42 Dose: 5,000 units Hydralazine HCl (Apresoline) 10 mg IVP Q6 PRN PRN Reason: For SBP > 150 Last Admin: 12/13/17 08:32 Dose: 10 mg Ceftriaxone Sodium (Rocephin 2 Gm Ivpb) 2 gm in 100 mls @ 100 mls/hr IVPB DAILY [facility] PRN Reason: Protocol Last Admin: 12/29/17 12:40 Dose: 100 mls/hr Ibuprofen (Motrin Tab) 400 mg PO Q6H PRN PRN Reason: Fever >100.4 F Last Admin: 12/10/17 23:04 Dose: 400 mg Insulin Detemir (Levemir) 10 unit SC HS [facility] Last Admin: 12/28/17 22:00 Dose: Not Given Insulin Human Regular (Humulin R High) 0 units SC ACHS [facility] PRN Reason: Protocol Last Admin: 12/29/17 16:38 Dose: Not Given Lisinopril (Zestril) 10 mg PO DAILY [facility] Last Admin: 12/29/17 11:00 Dose: 10 mg Lorazepam (Ativan) 0.5 mg PO BID [facility] PRN Reason: Protocol Last Admin: 12/29/17 12:36 Dose: 0.5 mg Multivitamins/Minerals (Therapeutic-M Tab) 1 tab PO 0800 [facility] Last Admin: 12/29/17 12:42 Dose: 1 tab Pantoprazole Sodium (Protonix Ec Tab) 40 mg PO ACB [facility] Last Admin: 12/29/17 08:30 Dose: 40 mg Potassium Chloride (K-Dur 20 Meq Er Tab) 40 meq PO BID [facility] Last Admin: 12/29/17 12:37 Dose: 40 meq Quetiapine Fumarate (Seroquel) 12.5 mg PO HS PRN; Protocol PRN Reason: psychosis, restlessness Thiamine HCl (Vitamin B1 Tab) 100 mg PO DAILY [facility] Last Admin: 12/29/17 12:42 Dose: 100 mg Zinc Sulfate (Zinc Sulfate 220 Mg Cap) 220 mg PO DAILY [facility] Last Admin: 12/29/17 12:45 Dose: 220 mg Ziprasidone (Geodon Inj) 10 mg IM BID PRN; Protocol PRN Reason: agitaiton/psychosis - Labs Labs: 12/28/17 05:45 12/28/17 05:45 PT 12.5 SECONDS (9.4-12.5) 12/09/17 10:00 INR 1.09 (0.93-1.08) H 12/09/17 10:00 APTT 28.3 Seconds (25.1-36.5) 11/30/17 05:30 - Constitutional Appears: Chronically Ill - Head Exam Head Exam: NORMAL INSPECTION - Respiratory Exam Respiratory Exam: Decreased Breath Sounds - Cardiovascular Exam Cardiovascular Exam: +S1, +S2 - GI/Abdominal Exam GI & Abdominal Exam: Soft. absent: Tenderness Assessment and Plan - Assessment and Plan (Free Text) Plan: Assessment sepsis due to strep viridans and CoNS bacteremia from right gluteal and back cellulitis S/P multifocal HCAP on top of Influenza A infection R/O Sammie infection of sacral area as well Plan continue Rocephin for the Strep viridans bacteremia (would continue 4-6 weeks of Rocephin with weekly ESR, CRP, CBC, CMP) day 29 of 28-42 days; unable to do TAHIR since patient unable to give consent and patient does not have family to give consent CRP still elevated - would recommend to continue until 6 weeks of therapy will continue to follow clinically
--- NOTE | 2017-12-29 19:56 | CP.PCM.PN ---
<Nikita Hurley - Last Filed: 12/29/17 19:52> Subjective - Date & Time of Evaluation Date of Evaluation: 12/29/17 Time of Evaluation: 07:30 - Subjective Subjective: Nikita Hurley Patient seen and examined at bedside. Offers no complaints. Nurse reports no events overnight. Case discussed with case management and social work. Objective - Vital Signs/Intake and Output Vital Signs (last 24 hours): Temp Pulse Resp BP Pulse Ox 98 F 106 H 18 122/79 97 12/29/17 16:00 12/29/17 16:00 12/29/17 16:00 12/29/17 16:00 12/29/17 16:00 Intake and Output: 12/29/17 12/30/17 18:59 06:59 Intake Total 1080 Balance 1080 - Medications Medications: Current Medications Amlodipine Besylate (Norvasc) 10 mg PO DAILY [facility] Last Admin: 12/29/17 12:37 Dose: 10 mg Aspirin (Ecotrin) 81 mg PO DAILY [facility] Last Admin: 12/29/17 12:37 Dose: 81 mg Atorvastatin Calcium (Lipitor) 20 mg PO DIN [facility] Last Admin: 12/29/17 18:18 Dose: 20 mg Clotrimazole (Lotrimin Af 1%) 0 ml TOP BID [facility] Last Admin: 12/29/17 18:19 Dose: 1 applic Folic Acid (Folic Acid) 1 mg PO DAILY [facility] Last Admin: 12/29/17 12:37 Dose: 1 mg Heparin Sodium (Porcine) (Heparin) 5,000 units SC Q12 [facility] PRN Reason: Protocol Last Admin: 12/29/17 12:42 Dose: 5,000 units Hydralazine HCl (Apresoline) 10 mg IVP Q6 PRN PRN Reason: For SBP > 150 Last Admin: 12/13/17 08:32 Dose: 10 mg Ceftriaxone Sodium (Rocephin 2 Gm Ivpb) 2 gm in 100 mls @ 100 mls/hr IVPB DAILY [facility] PRN Reason: Protocol Last Admin: 12/29/17 12:40 Dose: 100 mls/hr Ibuprofen (Motrin Tab) 400 mg PO Q6H PRN PRN Reason: Fever >100.4 F Last Admin: 12/10/17 23:04 Dose: 400 mg Insulin Detemir (Levemir) 10 unit SC HS [facility] Last Admin: 12/28/17 22:00 Dose: Not Given Insulin Human Regular (Humulin R High) 0 units SC ACHS [facility] PRN Reason: Protocol Last Admin: 12/29/17 16:38 Dose: Not Given Lisinopril (Zestril) 10 mg PO DAILY [facility] Last Admin: 12/29/17 11:00 Dose: 10 mg Lorazepam (Ativan) 0.5 mg PO BID [facility] PRN Reason: Protocol Last Admin: 12/29/17 18:19 Dose: 0.5 mg Multivitamins/Minerals (Therapeutic-M Tab) 1 tab PO 0800 [facility] Last Admin: 12/29/17 12:42 Dose: 1 tab Pantoprazole Sodium (Protonix Ec Tab) 40 mg PO ACB [facility] Last Admin: 12/29/17 08:30 Dose: 40 mg Potassium Chloride (K-Dur 20 Meq Er Tab) 40 meq PO BID [facility] Last Admin: 12/29/17 18:19 Dose: 40 meq Quetiapine Fumarate (Seroquel) 12.5 mg PO HS PRN; Protocol PRN Reason: psychosis, restlessness Thiamine HCl (Vitamin B1 Tab) 100 mg PO DAILY [facility] Last Admin: 12/29/17 12:42 Dose: 100 mg Zinc Sulfate (Zinc Sulfate 220 Mg Cap) 220 mg PO DAILY [facility] Last Admin: 12/29/17 12:45 Dose: 220 mg Ziprasidone (Geodon Inj) 10 mg IM BID PRN; Protocol PRN Reason: agitaiton/psychosis - Labs Labs: 12/28/17 05:45 12/28/17 05:45 PT 12.5 SECONDS (9.4-12.5) 12/09/17 10:00 INR 1.09 (0.93-1.08) H 12/09/17 10:00 APTT 28.3 Seconds (25.1-36.5) 11/30/17 05:30 - Constitutional Appears: Non-toxic, No Acute Distress - Head Exam Head Exam: ATRAUMATIC, NORMOCEPHALIC - Eye Exam Eye Exam: EOMI, Normal appearance - ENT Exam ENT Exam: Mucous Membranes Moist, Normal Oropharynx - Respiratory Exam Respiratory Exam: Clear to Ausculation Bilateral, NORMAL BREATHING PATTERN - Cardiovascular Exam Cardiovascular Exam: RRR, +S1, +S2 - Neurological Exam Neurological Exam: Alert, Awake - Psychiatric Exam Psychiatric exam: Flat Affect - Skin Skin Exam: Dry, Intact, Normal Color, Warm Assessment and Plan - Assessment and Plan (Free Text) Assessment: Day 29 of 36 days of IV Ceftriaxone 57 year old male with unknown past medical history who was brought in via EMS for AMS covered in feces in his apartment. 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 He is on IV ceftriaxone for his bacteremia and is pending Transesophageal Echocardiogram and colonoscopy to rule out endocarditis and colon cancer, respectively. Important to note, patient is unable to give consent for TAHIR and colonoscopy secondary to being mental incompetent. Plan: 1) AMS resolved; patient has returned to baseline mentation. - Continue with delirium precautions 2) Bacteremia with Strep Viridans/Mitis and Coag Neg Staph Bacteremia -Day 28 of 36 of IV Ceftriaxone therapy; course extended secondary to increased ESR/CRP -Continue Motrin 400mg Q6 PRN for fever -Will continue weekly ESR and CRP -TAHIR to be done when consent can be obtained -Psychiatry, Cardiology, Neurology and ID consulted, all recommendations appreciated -PT/OT recommending JOSIAH upon discharge 3) Colonic Neoplasm -Flexible sigmoidoscopy/Colonoscopy to be done when consent can be obtained -GI consulted, all recommendations appreciated 4) Multifocal Pneumonia in the setting of recent Influenzae A infection -Continue with Ceftriaxone 5) Ischemic Stroke -Continue ASA 81mg and Lipitor 20mg 6) History of Alcohol Abuse/Withdrawal - PO Folate,Thiamine, and Multivitamin supplements - Fall, Seizure, and Aspiration precautions 6) DM II -SSI-High and Accuchecks ACHS -Levemir 10 units HS -Carb Consistent Diet 7) HTN - Continue Lisinopril 10mg - Norvasc 10mg PO daily 8) Stage 2 Sacral Decubitus Ulcers with associated Cellulitis - Continue Lotrimin AF 1% ointment - Continue wound care and Q2 repositioning - OOB to chair; patient is refusing at the moment. 9) Hypokalemia -Continue daily supplementation with KCl 40meq BID 10) Affective disorder, unspecified - Geodon PRN - Seroquel HS - Ativan 0.5 mg BID [facility] Impression: Patient's incompetence may need to re-evaluated given his more recent responsiveness/appropriateness to questioning and demonstrating clear thoughts and reasonable actions/decision. As always, will defer to psychiatry and hope some in-roads may be made. Case seen and discussed with attending physician Dr. Galo <Sixto Galo - Last Filed: 12/29/17 20:43> Objective - Vital Signs/Intake and Output Vital Signs (last 24 hours): Temp Pulse Resp BP Pulse Ox 98 F 106 H 18 122/79 97 12/29/17 16:00 12/29/17 16:00 12/29/17 16:00 12/29/17 16:00 12/29/17 16:00 Intake and Output: 12/29/17 12/30/17 18:59 06:59 Intake Total 1080 Balance 1080 - Medications Medications: Current Medications Amlodipine Besylate (Norvasc) 10 mg PO DAILY [facility] Last Admin: 12/29/17 12:37 Dose: 10 mg Aspirin (Ecotrin) 81 mg PO DAILY [facility] Last Admin: 12/29/17 12:37 Dose: 81 mg Atorvastatin Calcium (Lipitor) 20 mg PO DIN [facility] Last Admin: 12/29/17 18:18 Dose: 20 mg Clotrimazole (Lotrimin Af 1%) 0 ml TOP BID [facility] Last Admin: 12/29/17 18:19 Dose: 1 applic Folic Acid (Folic Acid) 1 mg PO DAILY [facility] Last Admin: 12/29/17 12:37 Dose: 1 mg Heparin Sodium (Porcine) (Heparin) 5,000 units SC Q12 [facility] PRN Reason: Protocol Last Admin: 12/29/17 12:42 Dose: 5,000 units Hydralazine HCl (Apresoline) 10 mg IVP Q6 PRN PRN Reason: For SBP > 150 Last Admin: 12/13/17 08:32 Dose: 10 mg Ceftriaxone Sodium (Rocephin 2 Gm Ivpb) 2 gm in 100 mls @ 100 mls/hr IVPB DAILY [facility] PRN Reason: Protocol Last Admin: 12/29/17 12:40 Dose: 100 mls/hr Ibuprofen (Motrin Tab) 400 mg PO Q6H PRN PRN Reason: Fever >100.4 F Last Admin: 12/10/17 23:04 Dose: 400 mg Insulin Detemir (Levemir) 10 unit SC HS [facility] Last Admin: 12/28/17 22:00 Dose: Not Given Insulin Human Regular (Humulin R High) 0 units SC ACHS [facility] PRN Reason: Protocol Last Admin: 12/29/17 16:38 Dose: Not Given Lisinopril (Zestril) 10 mg PO DAILY [facility] Last Admin: 12/29/17 11:00 Dose: 10 mg Lorazepam (Ativan) 0.5 mg PO BID [facility] PRN Reason: Protocol Last Admin: 12/29/17 18:19 Dose: 0.5 mg Multivitamins/Minerals (Therapeutic-M Tab) 1 tab PO 0800 [facility] Last Admin: 12/29/17 12:42 Dose: 1 tab Pantoprazole Sodium (Protonix Ec Tab) 40 mg PO ACB [facility] Last Admin: 12/29/17 08:30 Dose: 40 mg Potassium Chloride (K-Dur 20 Meq Er Tab) 40 meq PO BID [facility] Last Admin: 12/29/17 18:19 Dose: 40 meq Quetiapine Fumarate (Seroquel) 12.5 mg PO HS PRN; Protocol PRN Reason: psychosis, restlessness Thiamine HCl (Vitamin B1 Tab) 100 mg PO DAILY [facility] Last Admin: 12/29/17 12:42 Dose: 100 mg Zinc Sulfate (Zinc Sulfate 220 Mg Cap) 220 mg PO DAILY [facility] Last Admin: 12/29/17 12:45 Dose: 220 mg Ziprasidone (Geodon Inj) 10 mg IM BID PRN; Protocol PRN Reason: agitaiton/psychosis - Labs Labs: 12/28/17 05:45 12/28/17 05:45 PT 12.5 SECONDS (9.4-12.5) 12/09/17 10:00 INR 1.09 (0.93-1.08) H 12/09/17 10:00 APTT 28.3 Seconds (25.1-36.5) 11/30/17 05:30 Attending/Attestation - Attestation I have personally seen and examined this patient.: Yes I have fully participated in the care of the patient.: Yes I have reviewed all pertinent clinical information, including history, physical exam and plan: Yes Notes (Text): 12/29/17 20:43 57 year old male who was brought in for altered mental status, found in his apartment covered in feces. He was treated for right hip/buttock cellulitis, influenza and multifocal pneumonia. He was also found to have acute/subacute infarct on MRI. Continue with aspirin and statin. Monitor LFTs while on statin. PT is recommending JOSIAH upon discharge. He was found to have strep viridians bacteremia who which he is on iv ceftriaxone (day 2836). TTE could not rule out vegetation. TAHIR at this time cannot be obtained due to lack of consent. He was also found to have colon mass and liver lesions. GI recommended possible flex sig, colonoscopy vs liver biopsy. However again consent is not able to be obtained at this time. Psychiatry evaluation was appreciated. SW is also working on guardianship. Will request for psychiatry follow up and SW updates. He is on norvasc and lisinopril for hypertension and levemir for diabetes. Sixto Galo MD Hospitalist.
[2017-12-29] MEDS: Insulin Detemir 100 units/ml Vial (Levemir) SC SCH (21:47)
[2017-12-30] MEDS: Insulin Reg-HIGH-Coverage SC SCH ×4 (08:42→22:10)
[2017-12-30] MEDS: cefTRIAXone 2 GM IN NS 2 GM/100 ML BAG IVPB SCH (09:38)
[2017-12-30] MEDS: Pantoprazole 40 mg EC Tab PO SCH (09:39)
[2017-12-30] MEDS: Multivitamin With Minerals Tab PO SCH (09:39)
[2017-12-30] MEDS: Potassium Chloride 20 mEq ER Tab PO SCH ×2 (09:39→18:33)
[2017-12-30] MEDS: Clotrimazole 1% Top Soln(10 ml) TOP SCH ×2 (09:40→18:34)
--- NOTE | 2017-12-30 20:05 | CP.PCM.PN ---
<Nikita Hurley - Last Filed: 12/30/17 20:02> Subjective - Date & Time of Evaluation Date of Evaluation: 12/30/17 Time of Evaluation: 07:20 - Subjective Subjective: Nikita Hurley DO, PGY-1: Hospitalist Service Patient laying in bed. He is clearly unable to answer question appropriately. Agree with guardianship aim. Nurse reports patient has been pleasant. Objective - Vital Signs/Intake and Output Vital Signs (last 24 hours): Temp Pulse Resp BP Pulse Ox 97.3 F L 96 H 20 131/99 H 96 12/30/17 08:20 12/30/17 09:39 12/30/17 08:20 12/30/17 09:40 12/30/17 08:20 Intake and Output: 12/30/17 12/31/17 18:59 06:59 Intake Total 840 Balance 840 - Medications Medications: Current Medications Amlodipine Besylate (Norvasc) 10 mg PO DAILY [facility] Last Admin: 12/30/17 09:40 Dose: 10 mg Aspirin (Ecotrin) 81 mg PO DAILY [facility] Last Admin: 12/30/17 09:40 Dose: 81 mg Atorvastatin Calcium (Lipitor) 20 mg PO DIN [facility] Last Admin: 12/30/17 18:33 Dose: 20 mg Clotrimazole (Lotrimin Af 1%) 0 ml TOP BID [facility] Last Admin: 12/30/17 18:34 Dose: 1 applic Folic Acid (Folic Acid) 1 mg PO DAILY [facility] Last Admin: 12/30/17 09:39 Dose: 1 mg Heparin Sodium (Porcine) (Heparin) 5,000 units SC Q12 [facility] PRN Reason: Protocol Last Admin: 12/30/17 09:40 Dose: 5,000 units Hydralazine HCl (Apresoline) 10 mg IVP Q6 PRN PRN Reason: For SBP > 150 Last Admin: 12/13/17 08:32 Dose: 10 mg Ceftriaxone Sodium (Rocephin 2 Gm Ivpb) 2 gm in 100 mls @ 100 mls/hr IVPB DAILY [facility] PRN Reason: Protocol Last Admin: 12/30/17 09:38 Dose: 100 mls/hr Ibuprofen (Motrin Tab) 400 mg PO Q6H PRN PRN Reason: Fever >100.4 F Last Admin: 12/10/17 23:04 Dose: 400 mg Insulin Detemir (Levemir) 10 unit SC HS [facility] Last Admin: 12/29/17 21:47 Dose: 10 unit Insulin Human Regular (Humulin R High) 0 units SC ACHS [facility] PRN Reason: Protocol Last Admin: 12/30/17 18:33 Dose: 4 units Lisinopril (Zestril) 10 mg PO DAILY [facility] Last Admin: 12/30/17 09:39 Dose: 10 mg Lorazepam (Ativan) 0.5 mg PO BID [facility] PRN Reason: Protocol Last Admin: 12/30/17 18:33 Dose: 0.5 mg Multivitamins/Minerals (Therapeutic-M Tab) 1 tab PO 0800 [facility] Last Admin: 12/30/17 09:39 Dose: 1 tab Pantoprazole Sodium (Protonix Ec Tab) 40 mg PO ACB [facility] Last Admin: 12/30/17 09:39 Dose: 40 mg Potassium Chloride (K-Dur 20 Meq Er Tab) 40 meq PO BID [facility] Last Admin: 12/30/17 18:33 Dose: 40 meq Quetiapine Fumarate (Seroquel) 12.5 mg PO HS PRN; Protocol PRN Reason: psychosis, restlessness Thiamine HCl (Vitamin B1 Tab) 100 mg PO DAILY [facility] Last Admin: 12/30/17 09:39 Dose: 100 mg Zinc Sulfate (Zinc Sulfate 220 Mg Cap) 220 mg PO DAILY [facility] Last Admin: 12/30/17 09:40 Dose: 220 mg Ziprasidone (Geodon Inj) 10 mg IM BID PRN; Protocol PRN Reason: agitaiton/psychosis - Labs Labs: 12/28/17 05:45 12/28/17 05:45 PT 12.5 SECONDS (9.4-12.5) 12/09/17 10:00 INR 1.09 (0.93-1.08) H 12/09/17 10:00 APTT 28.3 Seconds (25.1-36.5) 11/30/17 05:30 - Constitutional Appears: Non-toxic, Other (apathetic secondary to strokes) - Head Exam Head Exam: ATRAUMATIC, NORMOCEPHALIC - Eye Exam Eye Exam: Normal appearance - Neck Exam Neck Exam: Normal Inspection - Respiratory Exam Respiratory Exam: Clear to Ausculation Bilateral, NORMAL BREATHING PATTERN. absent: Accessory Muscle Use - Cardiovascular Exam Cardiovascular Exam: RRR, +S1, +S2 - GI/Abdominal Exam GI & Abdominal Exam: Soft, Normal Bowel Sounds - Extremities Exam Extremities Exam: Normal Inspection - Back Exam Back Exam: NORMAL INSPECTION. absent: CVA tenderness (L), CVA tenderness (R) - Neurological Exam Neurological Exam: Alert, Awake. absent: Oriented x3 - Psychiatric Exam Psychiatric exam: Flat Affect, Normal Affect - Skin Skin Exam: Dry, Intact, Normal Color, Warm Assessment and Plan - Assessment and Plan (Free Text) Assessment: Day 30.5 of 36 days of IV Ceftriaxone 57 year old male with unknown past medical history who was brought in via EMS for AMS covered in feces in his apartment. 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 He is on IV ceftriaxone for his bacteremia and is pending Transesophageal Echocardiogram and colonoscopy to rule out endocarditis and colon cancer, respectively. Important to note, patient is unable to give consent for TAHIR and colonoscopy secondary to being not of decision-making capacity. Plan: 1) AMS resolved; patient has returned to baseline mentation. - Continue with delirium precautions 2) Bacteremia with Strep Viridans/Mitis and Coag Neg Staph Bacteremia -Day 28 of 36 of IV Ceftriaxone therapy; course extended secondary to increased ESR/CRP -Continue Motrin 400mg Q6 PRN for fever -Will continue weekly ESR and CRP -TAHIR to be done when consent can be obtained -Psychiatry, Cardiology, Neurology and ID consulted, all recommendations appreciated -PT/OT recommending JOSIAH upon discharge 3) Colonic Neoplasm -Flexible sigmoidoscopy/Colonoscopy to be done when consent can be obtained -GI consulted, all recommendations appreciated 4) Multifocal Pneumonia in the setting of recent Influenzae A infection -Continue with Ceftriaxone 5) Ischemic Stroke -Continue ASA 81mg and Lipitor 20mg 6) History of Alcohol Abuse/Withdrawal - PO Folate,Thiamine, and Multivitamin supplements - Fall, Seizure, and Aspiration precautions 6) DM II -SSI-High and Accuchecks ACHS -Levemir 10 units HS -Carb Consistent Diet 7) HTN - Continue Lisinopril 10mg - Norvasc 10mg PO daily 8) Stage 2 Sacral Decubitus Ulcers with associated Cellulitis - Continue Lotrimin AF 1% ointment - Continue wound care and Q2 repositioning - OOB to chair; patient is refusing at the moment. 9) Hypokalemia -Continue daily supplementation with KCl 40meq BID 10) Affective disorder, unspecified - Geodon PRN - Seroquel HS - Ativan 0.5 mg BID [facility] <Sixto Galo - Last Filed: 12/30/17 21:45> Objective - Vital Signs/Intake and Output Vital Signs (last 24 hours): Temp Pulse Resp BP Pulse Ox 97.3 F L 96 H 20 131/99 H 96 12/30/17 08:20 12/30/17 09:39 12/30/17 08:20 12/30/17 09:40 12/30/17 08:20 Intake and Output: 12/30/17 12/31/17 18:59 06:59 Intake Total 840 Balance 840 - Medications Medications: Current Medications Amlodipine Besylate (Norvasc) 10 mg PO DAILY [facility] Last Admin: 12/30/17 09:40 Dose: 10 mg Aspirin (Ecotrin) 81 mg PO DAILY [facility] Last Admin: 12/30/17 09:40 Dose: 81 mg Atorvastatin Calcium (Lipitor) 20 mg PO DIN [facility] Last Admin: 12/30/17 18:33 Dose: 20 mg Clotrimazole (Lotrimin Af 1%) 0 ml TOP BID [facility] Last Admin: 12/30/17 18:34 Dose: 1 applic Folic Acid (Folic Acid) 1 mg PO DAILY [facility] Last Admin: 12/30/17 09:39 Dose: 1 mg Heparin Sodium (Porcine) (Heparin) 5,000 units SC Q12 [facility] PRN Reason: Protocol Last Admin: 12/30/17 09:40 Dose: 5,000 units Hydralazine HCl (Apresoline) 10 mg IVP Q6 PRN PRN Reason: For SBP > 150 Last Admin: 12/13/17 08:32 Dose: 10 mg Ceftriaxone Sodium (Rocephin 2 Gm Ivpb) 2 gm in 100 mls @ 100 mls/hr IVPB DAILY [facility] PRN Reason: Protocol Last Admin: 12/30/17 09:38 Dose: 100 mls/hr Ibuprofen (Motrin Tab) 400 mg PO Q6H PRN PRN Reason: Fever >100.4 F Last Admin: 12/10/17 23:04 Dose: 400 mg Insulin Detemir (Levemir) 10 unit SC [facility] Last Admin: 12/29/17 21:47 Dose: 10 unit Insulin Human Regular (Humulin R High) 0 units SC ACHS [facility] PRN Reason: Protocol Last Admin: 12/30/17 18:33 Dose: 4 units Lisinopril (Zestril) 10 mg PO DAILY [facility] Last Admin: 12/30/17 09:39 Dose: 10 mg Lorazepam (Ativan) 0.5 mg PO BID [facility] PRN Reason: Protocol Last Admin: 12/30/17 18:33 Dose: 0.5 mg Multivitamins/Minerals (Therapeutic-M Tab) 1 tab PO 0800 [facility] Last Admin: 12/30/17 09:39 Dose: 1 tab Pantoprazole Sodium (Protonix Ec Tab) 40 mg PO ACB [facility] Last Admin: 12/30/17 09:39 Dose: 40 mg Potassium Chloride (K-Dur 20 Meq Er Tab) 40 meq PO BID [facility] Last Admin: 12/30/17 18:33 Dose: 40 meq Quetiapine Fumarate (Seroquel) 12.5 mg PO HS PRN; Protocol PRN Reason: psychosis, restlessness Thiamine HCl (Vitamin B1 Tab) 100 mg PO DAILY [facility] Last Admin: 12/30/17 09:39 Dose: 100 mg Zinc Sulfate (Zinc Sulfate 220 Mg Cap) 220 mg PO DAILY [facility] Last Admin: 12/30/17 09:40 Dose: 220 mg Ziprasidone (Geodon Inj) 10 mg IM BID PRN; Protocol PRN Reason: agitaiton/psychosis - Labs Labs: 12/28/17 05:45 12/28/17 05:45 PT 12.5 SECONDS (9.4-12.5) 12/09/17 10:00 INR 1.09 (0.93-1.08) H 12/09/17 10:00 APTT 28.3 Seconds (25.1-36.5) 11/30/17 05:30 Attending/Attestation - Attestation I have personally seen and examined this patient.: Yes I have fully participated in the care of the patient.: Yes I have reviewed all pertinent clinical information, including history, physical exam and plan: Yes Notes (Text): 12/30/17 21:44 57 year old male who was brought in for altered mental status, found in his apartment covered in feces. He was treated for right hip/buttock cellulitis, influenza and multifocal pneumonia. He was also found to have acute/subacute infarct on MRI. Continue with aspirin and statin. Monitor LFTs while on statin. PT is recommending JOSIAH upon discharge. He was found to have strep viridians bacteremia who which he is on iv ceftriaxone (day 36). TTE could not rule out vegetation. TAHIR at this time cannot be obtained due to lack of consent. He was also found to have colon mass and liver lesions. GI recommended possible flex sig, colonoscopy vs liver biopsy. However again consent is not able to be obtained at this time. Psychiatry evaluation was appreciated. SW is also working on guardianship. Will follow up with recommendations. He is on norvasc and lisinopril for hypertension and levemir for diabetes. Sixto Galo MD Hospitalist.
[2017-12-30] MEDS: Insulin Detemir 100 units/ml Vial (Levemir) SC SCH (22:09)
[2017-12-31] MEDS: Pantoprazole 40 mg EC Tab PO SCH (07:19)
[2017-12-31] MEDS: Insulin Reg-HIGH-Coverage SC SCH ×4 (07:42→22:44)
[2017-12-31] MEDS: Multivitamin With Minerals Tab PO SCH (08:20)
--- NOTE | 2017-12-31 08:52 | PN ---
DATE: 12/30/2017 SUBJECTIVE: The patient is a 57-year-old male with not known previous psychiatric history. The patient most likely has history of alcohol use disorder. The patient was admitted on the medical site after the patient was found to have altered mental status prior to arrival. Initially, the patient presented to be confused; also as per brother's collateral information, the patient was found in his apartment covered with feces. At the time of evaluation on the emergency room, the patient presented to be cachectic, poor historian, and limited history was obtained due to the patient's altered mental status. This brief writer got involved into the patient on 12/23 for evaluation of capacity to make decision and participate in discharge plan. The patient presented to be in a catatonic stage back then. The patient was not able to provide any history and this brief writer initiated benzodiazepines as well as antipsychotic medication. During this hospitalization, the patient was found to have right hip cellulitis, multifocal pneumonia, influenza A, Strep viridans bacteremia. MRI showed stroke, acute versus subacute and CT scan findings concerning metastatic CRC. The patient also has diabetes, hypertension, stage II sacral decubiti, hypokalemia. Please see medical team notes for more detailed information. The patient was seen today for followup as per medical team request for evaluation of capacity and as per medical team report, the patient's mental status improved. The patient was seen and examined today. The patient presented to be alert, oriented only in himself, does not know what is the date, does not know what facility he is in. He does not know what are the circumstances of his admission to the hospital. The patient kept picking something on the blanket, not able to participate in interview in meaningful way. The patient's answers were majority of the time "yes, no, or I don't know." The patient seemed to be annoyed with all of the questions. The patient denied being depressed. The patient denied history of mental illness. The patient denied hearing voices. The patient denied seeing things. The patient reported that he has good appetite as well as sleep. The patient denied any family member he remembers. The patient does not know where he lives. The patient does not know basic information about his medical problems and diagnosis. The patient does not have factual understanding of diagnosis, treatment, potential risk and benefits, and consequences of procedures. The patient does not have insight. The patient does not have reasoning ability. The patient was not able to indicate any preferences and obviously, the patient lacks capacity to participate in treatment plan. Due to all the above information, the patient seems to have lacked ability of care for himself and the patient is vulnerable in the community because the patient is confused, has memory problems, and the patient does not have basic understanding such as what is the date today, where he is, and the patient appears to be confused. Vital signs reviewed. Temperature 97.3, pulse is 93, blood pressure 131/99, respirations 20, oxygen saturation is 96. MEDICATIONS: Reviewed. The patient is on Norvasc, aspirin, Lipitor, Rocephin, Lotrimin, folic acid, heparin, hydralazine, Motrin, Levemir, Humulin, Zestril, Ativan, multivitamins, Protonix, potassium chloride, Seroquel as needed but the patient does not need that at the nighttime, vitamin B1, zinc sulfate, and Geodon as needed. The patient did not require any p.r.n. medications. MENTAL STATUS EXAMINATION: As this brief writer described above, the patient is confused and the patient does not know where he is. No eye contact. Flat affect. Mood described as okay. Thought process is concrete. Yes/no answers. Speech was underproductive, low volume, yes/no answers. Thought content, the patient denied visual, auditory, tactile hallucinations. Denied paranoid ideation. The patient denied thoughts of harming himself or others, denied intent or plan. Insight and judgment seem to be impaired. Impulses are well controlled. IMPRESSION: Most likely, the patient has a combination of the factors. Based on the history, the patient has history of alcohol disorder. This brief writer cannot exclude alcohol-related dementia. The patient also has no family. The patient has multiple medical issues including multifocal pneumonia, right hip cellulitis. The patient also has acute versus subacute stroke. The patient also has metastatic colorectal cancer, and bacteremia, which all could contribute to the patient's mental status presentation. PLAN: Continue current management. The patient does not have any behavioral issues, but based on above, the patient obviously lacks decision making capacity. The patient does not have understanding of diagnosis, treatment, potential benefits and risks as well as consequences with and without treatment. The patient does not have any insight or appreciation, does not have any reasoning ability. The patient was not able to indicate his preferences. Basically, right now, the patient lacks capacity to make decision for himself. This brief writer will sign off. Should you have any questions, give me a call back. Thank you very much for letting me participate in care of your patient. Mary Swartz MD
[2017-12-31] MEDS: Potassium Chloride 20 mEq ER Tab PO SCH ×2 (09:18→17:29)
[2017-12-31] MEDS: Clotrimazole 1% Top Soln(10 ml) TOP SCH ×2 (09:19→17:30)
[2017-12-31] MEDS: cefTRIAXone 2 GM IN NS 2 GM/100 ML BAG IVPB SCH (09:20)
--- NOTE | 2017-12-31 17:06 | CP.PCM.PN ---
<Nikita Hurley - Last Filed: 01/01/18 15:19> Subjective - Date & Time of Evaluation Date of Evaluation: 12/31/17 Time of Evaluation: 06:15 - Subjective Subjective: Patient is not alert or oriented to person, place, or time. Please see psychiatry notes for details. The patient does not know where he is and does not know why he is in the hospital. Objective - Vital Signs/Intake and Output Vital Signs (last 24 hours): Temp Pulse Resp BP Pulse Ox 97.8 F 96 H 20 112/74 93 L 12/31/17 16:00 12/31/17 16:00 12/31/17 16:00 12/31/17 16:00 12/31/17 16:00 Intake and Output: 12/31/17 12/31/17 06:59 18:59 Intake Total 540 840 Balance 540 840 - Medications Medications: Current Medications Amlodipine Besylate (Norvasc) 10 mg PO DAILY [facility] Last Admin: 12/31/17 09:19 Dose: 10 mg Aspirin (Ecotrin) 81 mg PO DAILY [facility] Last Admin: 12/31/17 09:17 Dose: 81 mg Atorvastatin Calcium (Lipitor) 20 mg PO DIN [facility] Last Admin: 12/30/17 18:33 Dose: 20 mg Clotrimazole (Lotrimin Af 1%) 0 ml TOP BID [facility] Last Admin: 12/31/17 09:19 Dose: 1 applic Folic Acid (Folic Acid) 1 mg PO DAILY [facility] Last Admin: 12/31/17 09:17 Dose: 1 mg Heparin Sodium (Porcine) (Heparin) 5,000 units SC Q12 [facility] PRN Reason: Protocol Last Admin: 12/31/17 09:17 Dose: 5,000 units Hydralazine HCl (Apresoline) 10 mg IVP Q6 PRN PRN Reason: For SBP > 150 Last Admin: 12/13/17 08:32 Dose: 10 mg Ceftriaxone Sodium (Rocephin 2 Gm Ivpb) 2 gm in 100 mls @ 100 mls/hr IVPB DAILY [facility] PRN Reason: Protocol Last Admin: 12/31/17 09:20 Dose: 100 mls/hr Ibuprofen (Motrin Tab) 400 mg PO Q6H PRN PRN Reason: Fever >100.4 F Last Admin: 12/10/17 23:04 Dose: 400 mg Insulin Detemir (Levemir) 10 unit SC HS [facility] Last Admin: 12/30/17 22:09 Dose: 10 unit Insulin Human Regular (Humulin R High) 0 units SC ACHS [facility] PRN Reason: Protocol Last Admin: 12/31/17 12:23 Dose: 4 units Lisinopril (Zestril) 10 mg PO DAILY [facility] Last Admin: 12/31/17 09:21 Dose: 10 mg Lorazepam (Ativan) 0.5 mg PO BID [facility] PRN Reason: Protocol Last Admin: 12/31/17 09:16 Dose: 0.5 mg Multivitamins/Minerals (Therapeutic-M Tab) 1 tab PO 0800 [facility] Last Admin: 12/31/17 08:20 Dose: 1 tab Pantoprazole Sodium (Protonix Ec Tab) 40 mg PO ACB [facility] Last Admin: 12/31/17 07:19 Dose: 40 mg Potassium Chloride (K-Dur 20 Meq Er Tab) 40 meq PO BID [facility] Last Admin: 12/31/17 09:18 Dose: 40 meq Quetiapine Fumarate (Seroquel) 12.5 mg PO HS PRN; Protocol PRN Reason: psychosis, restlessness Thiamine HCl (Vitamin B1 Tab) 100 mg PO DAILY [facility] Last Admin: 12/31/17 09:22 Dose: 100 mg Zinc Sulfate (Zinc Sulfate 220 Mg Cap) 220 mg PO DAILY [facility] Last Admin: 12/31/17 09:22 Dose: 220 mg Ziprasidone (Geodon Inj) 10 mg IM BID PRN; Protocol PRN Reason: agitaiton/psychosis - Labs Labs: 12/28/17 05:45 12/28/17 05:45 PT 12.5 SECONDS (9.4-12.5) 12/09/17 10:00 INR 1.09 (0.93-1.08) H 12/09/17 10:00 APTT 28.3 Seconds (25.1-36.5) 11/30/17 05:30 - Constitutional Appears: Non-toxic, No Acute Distress - Head Exam Head Exam: ATRAUMATIC, NORMOCEPHALIC - Eye Exam Eye Exam: EOMI - ENT Exam ENT Exam: Mucous Membranes Moist - Respiratory Exam Respiratory Exam: Clear to Ausculation Bilateral, NORMAL BREATHING PATTERN. absent: Accessory Muscle Use - Cardiovascular Exam Cardiovascular Exam: RRR, +S1, +S2 - GI/Abdominal Exam GI & Abdominal Exam: Soft. absent: Guarding - Extremities Exam Extremities Exam: Normal Inspection - Neurological Exam Neurological Exam: Awake. absent: Normal Gait, Oriented x3 - Psychiatric Exam Psychiatric exam: Flat Affect - Skin Skin Exam: Dry, Intact, Normal Color, Warm Assessment and Plan - Assessment and Plan (Free Text) Assessment: Day 30 of 36 days of IV Ceftriaxone 57 year old male with unknown past medical history who was brought in via EMS for AMS covered in feces in his apartment. 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 He is on IV ceftriaxone for his bacteremia and is pending Transesophageal Echocardiogram and colonoscopy to rule out endocarditis and colon cancer, respectively. Important to note, patient is unable to give consent for TAHIR and colonoscopy secondary to being not of decision-making capacity. Plan: 1) AMS resolved; patient has returned to baseline mentation, which is poor - Continue with delirium precautions 2) Bacteremia with Strep Viridans/Mitis and Coag Neg Staph Bacteremia -Day 28 of 36 of IV Ceftriaxone therapy; course extended secondary to increased ESR/CRP -Continue Motrin 400mg Q6 PRN for fever -Will continue weekly ESR and CRP -TAHIR to be done when consent can be obtained -Psychiatry, Cardiology, Neurology and ID consulted, all recommendations appreciated -PT/OT recommending JOSIAH upon discharge 3) Colonic Neoplasm -Flexible sigmoidoscopy/Colonoscopy to be done when consent can be obtained -GI consulted, all recommendations appreciated 4) Multifocal Pneumonia in the setting of recent Influenzae A infection -Continue with Ceftriaxone 5) Ischemic Stroke -Continue ASA 81mg and Lipitor 20mg 6) History of Alcohol Abuse/Withdrawal - PO Folate,Thiamine, and Multivitamin supplements - Fall, Seizure, and Aspiration precautions 6) DM II -SSI-High and Accuchecks ACHS -Levemir 10 units HS -Carb Consistent Diet 7) HTN - Continue Lisinopril 10mg - Norvasc 10mg PO daily 8) Stage 2 Sacral Decubitus Ulcers with associated Cellulitis - Continue Lotrimin AF 1% ointment - Continue wound care and Q2 repositioning - OOB to chair; patient is refusing at the moment. 9) Hypokalemia -Continue daily supplementation with KCl 40meq BID 10) Affective disorder, unspecified - Geodon PRN - Seroquel HS - Ativan 0.5 mg BID [facility] - mentally in no capacity to make his own healthcare decision - See psychiatry notes for details <Sixto Galo - Last Filed: 01/01/18 15:33> Objective - Vital Signs/Intake and Output Vital Signs (last 24 hours): Temp Pulse Resp BP Pulse Ox 98.0 F 92 H 18 120/84 94 L 01/01/18 06:00 01/01/18 09:35 01/01/18 06:00 01/01/18 09:35 01/01/18 06:00 Intake and Output: 01/01/18 01/01/18 06:59 18:59 Intake Total 480 0 Balance 480 0 - Medications Medications: Current Medications Amlodipine Besylate (Norvasc) 10 mg PO DAILY [facility] Last Admin: 01/01/18 09:33 Dose: 10 mg Aspirin (Ecotrin) 81 mg PO DAILY [facility] Last Admin: 01/01/18 09:32 Dose: 81 mg Atorvastatin Calcium (Lipitor) 20 mg PO DIN [facility] Last Admin: 12/31/17 17:30 Dose: 20 mg Clotrimazole (Lotrimin Af 1%) 0 ml TOP BID [facility] Last Admin: 01/01/18 09:33 Dose: 1 applic Folic Acid (Folic Acid) 1 mg PO DAILY [facility] Last Admin: 01/01/18 09:32 Dose: 1 mg Heparin Sodium (Porcine) (Heparin) 5,000 units SC Q12 [facility] PRN Reason: Protocol Last Admin: 01/01/18 09:32 Dose: 5,000 units Hydralazine HCl (Apresoline) 10 mg IVP Q6 PRN PRN Reason: For SBP > 150 Last Admin: 12/13/17 08:32 Dose: 10 mg Ceftriaxone Sodium (Rocephin 2 Gm Ivpb) 2 gm in 100 mls @ 100 mls/hr IVPB DAILY [facility] PRN Reason: Protocol Last Admin: 01/01/18 09:34 Dose: 100 mls/hr Ibuprofen (Motrin Tab) 400 mg PO Q6H PRN PRN Reason: Fever >100.4 F Last Admin: 12/10/17 23:04 Dose: 400 mg Insulin Detemir (Levemir) 10 unit SC [facility] Last Admin: 12/31/17 22:45 Dose: 10 unit Insulin Human Regular (Humulin R High) 0 units SC ACHS [facility] PRN Reason: Protocol Last Admin: 01/01/18 13:07 Dose: 7 units Lisinopril (Zestril) 10 mg PO DAILY [facility] Last Admin: 01/01/18 09:35 Dose: 10 mg Lorazepam (Ativan) 0.5 mg PO BID [facility] PRN Reason: Protocol Last Admin: 01/01/18 09:32 Dose: 0.5 mg Multivitamins/Minerals (Therapeutic-M Tab) 1 tab PO 0800 [facility] Last Admin: 01/01/18 09:34 Dose: 1 tab Pantoprazole Sodium (Protonix Ec Tab) 40 mg PO ACB [facility] Last Admin: 01/01/18 09:34 Dose: 40 mg Potassium Chloride (K-Dur 20 Meq Er Tab) 40 meq PO BID [facility] Last Admin: 01/01/18 09:33 Dose: 40 meq Quetiapine Fumarate (Seroquel) 12.5 mg PO HS PRN; Protocol PRN Reason: psychosis, restlessness Thiamine HCl (Vitamin B1 Tab) 100 mg PO DAILY [facility] Last Admin: 01/01/18 09:35 Dose: 100 mg Zinc Sulfate (Zinc Sulfate 220 Mg Cap) 220 mg PO DAILY [facility] Last Admin: 01/01/18 09:35 Dose: 220 mg Ziprasidone (Geodon Inj) 10 mg IM BID PRN; Protocol PRN Reason: agitaiton/psychosis - Labs Labs: 12/28/17 05:45 12/28/17 05:45 PT 12.5 SECONDS (9.4-12.5) 12/09/17 10:00 INR 1.09 (0.93-1.08) H 12/09/17 10:00 APTT 28.3 Seconds (25.1-36.5) 11/30/17 05:30 Attending/Attestation - Attestation I have personally seen and examined this patient.: Yes I have fully participated in the care of the patient.: Yes I have reviewed all pertinent clinical information, including history, physical exam and plan: Yes Notes (Text): 12/31/17 57 year old male who was brought in for altered mental status, found in his apartment covered in feces. He was treated for right hip/buttock cellulitis, influenza and multifocal pneumonia. He was also found to have acute/subacute infarct on MRI. He is on aspirin and statin. Monitor LFTs while on statin. PT is recommending JOSIAH upon discharge. He was found to have strep viridians bacteremia for which he is on iv ceftriaxone (day 3036). TTE could not rule out vegetation. TAHIR at this time cannot be obtained due to lack of consent. He was also found to have colon mass and liver lesions. GI recommended possible flex sig, colonoscopy vs liver biopsy. However again consent is not able to be obtained at this time. He is on norvasc and lisinopril for hypertension and levemir for diabetes. Psychiatry evaluation was appreciated. SW is also working on guardianship. Overall his mental status remains the same over the past few weeks. He is able to state his name and his brother's first name. He is able to state which street he [place]. He is able to state he is in a hospital, however does not know which hospital. He is not able to answer why he is in the hospital. His responses are mainly limited to "yes" or "no". His overall insight and judgment to his medical condition remains poor. His baseline mental status prior to admission is unknown. No family member is available to give more history. He does have acute/subacute infarct on this admission and history of alcohol abuse (?dementia) possibly contributing to his currently mental status. Will discuss with social work specialist and psychiatrist. Sixto Galo MD Hospitalist.
--- NOTE | 2017-12-31 18:36 | CP.PCM.PN ---
Subjective - Date & Time of Evaluation Date of Evaluation: 12/31/17 Time of Evaluation: 11:00 - Subjective Subjective: Comfortable, no fevers, not in distress. Objective - Vital Signs/Intake and Output Vital Signs (last 24 hours): Temp Pulse Resp BP Pulse Ox 97.6 F 90 18 148/86 93 L 12/31/17 08:33 12/31/17 09:21 12/31/17 08:33 12/31/17 09:21 12/31/17 08:33 Intake and Output: 12/31/17 12/31/17 06:59 18:59 Intake Total 540 Balance 540 - Medications Medications: Current Medications Amlodipine Besylate (Norvasc) 10 mg PO DAILY [facility] Last Admin: 12/31/17 09:19 Dose: 10 mg Aspirin (Ecotrin) 81 mg PO DAILY [facility] Last Admin: 12/31/17 09:17 Dose: 81 mg Atorvastatin Calcium (Lipitor) 20 mg PO DIN [facility] Last Admin: 12/30/17 18:33 Dose: 20 mg Clotrimazole (Lotrimin Af 1%) 0 ml TOP BID [facility] Last Admin: 12/31/17 09:19 Dose: 1 applic Folic Acid (Folic Acid) 1 mg PO DAILY [facility] Last Admin: 12/31/17 09:17 Dose: 1 mg Heparin Sodium (Porcine) (Heparin) 5,000 units SC Q12 [facility] PRN Reason: Protocol Last Admin: 12/31/17 09:17 Dose: 5,000 units Hydralazine HCl (Apresoline) 10 mg IVP Q6 PRN PRN Reason: For SBP > 150 Last Admin: 12/13/17 08:32 Dose: 10 mg Ceftriaxone Sodium (Rocephin 2 Gm Ivpb) 2 gm in 100 mls @ 100 mls/hr IVPB DAILY [facility] PRN Reason: Protocol Last Admin: 12/31/17 09:20 Dose: 100 mls/hr Ibuprofen (Motrin Tab) 400 mg PO Q6H PRN PRN Reason: Fever >100.4 F Last Admin: 12/10/17 23:04 Dose: 400 mg Insulin Detemir (Levemir) 10 unit SC HS [facility] Last Admin: 12/30/17 22:09 Dose: 10 unit Insulin Human Regular (Humulin R High) 0 units SC ACHS [facility] PRN Reason: Protocol Last Admin: 12/31/17 07:42 Dose: Not Given Lisinopril (Zestril) 10 mg PO DAILY [facility] Last Admin: 12/31/17 09:21 Dose: 10 mg Lorazepam (Ativan) 0.5 mg PO BID [facility] PRN Reason: Protocol Last Admin: 12/31/17 09:16 Dose: 0.5 mg Multivitamins/Minerals (Therapeutic-M Tab) 1 tab PO 0800 [facility] Last Admin: 12/31/17 08:20 Dose: 1 tab Pantoprazole Sodium (Protonix Ec Tab) 40 mg PO ACB [facility] Last Admin: 12/31/17 07:19 Dose: 40 mg Potassium Chloride (K-Dur 20 Meq Er Tab) 40 meq PO BID [facility] Last Admin: 12/31/17 09:18 Dose: 40 meq Quetiapine Fumarate (Seroquel) 12.5 mg PO HS PRN; Protocol PRN Reason: psychosis, restlessness Thiamine HCl (Vitamin B1 Tab) 100 mg PO DAILY [facility] Last Admin: 12/31/17 09:22 Dose: 100 mg Zinc Sulfate (Zinc Sulfate 220 Mg Cap) 220 mg PO DAILY [facility] Last Admin: 12/31/17 09:22 Dose: 220 mg Ziprasidone (Geodon Inj) 10 mg IM BID PRN; Protocol PRN Reason: agitaiton/psychosis - Labs Labs: 12/28/17 05:45 12/28/17 05:45 PT 12.5 SECONDS (9.4-12.5) 12/09/17 10:00 INR 1.09 (0.93-1.08) H 12/09/17 10:00 APTT 28.3 Seconds (25.1-36.5) 11/30/17 05:30 - Constitutional Appears: Chronically Ill - Head Exam Head Exam: NORMAL INSPECTION - Neck Exam Neck Exam: absent: Meningismus - Respiratory Exam Respiratory Exam: Decreased Breath Sounds - Cardiovascular Exam Cardiovascular Exam: +S1, +S2 - GI/Abdominal Exam GI & Abdominal Exam: Soft. absent: Tenderness Assessment and Plan - Assessment and Plan (Free Text) Plan: Assessment sepsis due to strep viridans and CoNS bacteremia from right gluteal and back cellulitis S/P multifocal HCAP on top of Influenza A infection R/O Sammie infection of sacral area as well Plan continue Rocephin for the Strep viridans bacteremia (would continue 4-6 weeks of Rocephin with weekly ESR, CRP, CBC, CMP) day 30 of 42 days; unable to do TAHIR since patient unable to give consent and patient does not have family to give consent CRP still elevated - would recommend to continue until 6 weeks of therapy will continue to follow clinically
[2017-12-31] MEDS: Insulin Detemir 100 units/ml Vial (Levemir) SC SCH (22:45)
[2018-01-01] MEDS: Clotrimazole 1% Top Soln(10 ml) TOP SCH ×2 (09:33→17:14)
[2018-01-01] MEDS: Potassium Chloride 20 mEq ER Tab PO SCH ×2 (09:33→17:11)
[2018-01-01] MEDS: Insulin Reg-HIGH-Coverage SC SCH ×3 (09:33→17:11)
[2018-01-01] MEDS: Multivitamin With Minerals Tab PO SCH (09:34)
[2018-01-01] MEDS: Pantoprazole 40 mg EC Tab PO SCH (09:34)
[2018-01-01] MEDS: cefTRIAXone 2 GM IN NS 2 GM/100 ML BAG IVPB SCH (09:34)
--- NOTE | 2018-01-01 16:42 | CP.PCM.PN ---
<KarenRinkujohnathan - Last Filed: 01/01/18 16:36> Subjective - Date & Time of Evaluation Date of Evaluation: 01/01/18 Time of Evaluation: 07:30 - Subjective Subjective: Hardeep Jones DO PGY1 - IM Progress Note Patient seen and examined at bedside. Per nursing staff, no acute events overnight. Patient responding only with one word answers, but does not respond appropriately when assessed for orientation. Patient unable to respond to full ROS. Patient not responding appropriately to questions about his history, situation, or hospitalization. Objective - Vital Signs/Intake and Output Vital Signs (last 24 hours): Temp Pulse Resp BP Pulse Ox 98.0 F 92 H 18 120/84 94 L 01/01/18 06:00 01/01/18 09:35 01/01/18 06:00 01/01/18 09:35 01/01/18 06:00 Intake and Output: 01/01/18 01/01/18 06:59 18:59 Intake Total 480 0 Balance 480 0 - Medications Medications: Current Medications Amlodipine Besylate (Norvasc) 10 mg PO DAILY [facility] Last Admin: 01/01/18 09:33 Dose: 10 mg Aspirin (Ecotrin) 81 mg PO DAILY [facility] Last Admin: 01/01/18 09:32 Dose: 81 mg Atorvastatin Calcium (Lipitor) 20 mg PO DIN [facility] Last Admin: 12/31/17 17:30 Dose: 20 mg Clotrimazole (Lotrimin Af 1%) 0 ml TOP BID [facility] Last Admin: 01/01/18 09:33 Dose: 1 applic Folic Acid (Folic Acid) 1 mg PO DAILY [facility] Last Admin: 01/01/18 09:32 Dose: 1 mg Heparin Sodium (Porcine) (Heparin) 5,000 units SC Q12 [facility] PRN Reason: Protocol Last Admin: 01/01/18 09:32 Dose: 5,000 units Hydralazine HCl (Apresoline) 10 mg IVP Q6 PRN PRN Reason: For SBP > 150 Last Admin: 12/13/17 08:32 Dose: 10 mg Ceftriaxone Sodium (Rocephin 2 Gm Ivpb) 2 gm in 100 mls @ 100 mls/hr IVPB DAILY [facility] PRN Reason: Protocol Last Admin: 01/01/18 09:34 Dose: 100 mls/hr Ibuprofen (Motrin Tab) 400 mg PO Q6H PRN PRN Reason: Fever >100.4 F Last Admin: 12/10/17 23:04 Dose: 400 mg Insulin Detemir (Levemir) 10 unit SC HS [facility] Last Admin: 12/31/17 22:45 Dose: 10 unit Insulin Human Regular (Humulin R High) 0 units SC ACHS [facility] PRN Reason: Protocol Last Admin: 01/01/18 13:07 Dose: 7 units Lisinopril (Zestril) 10 mg PO DAILY [facility] Last Admin: 01/01/18 09:35 Dose: 10 mg Lorazepam (Ativan) 0.5 mg PO BID [facility] PRN Reason: Protocol Last Admin: 01/01/18 09:32 Dose: 0.5 mg Multivitamins/Minerals (Therapeutic-M Tab) 1 tab PO 0800 [facility] Last Admin: 01/01/18 09:34 Dose: 1 tab Pantoprazole Sodium (Protonix Ec Tab) 40 mg PO ACB [facility] Last Admin: 01/01/18 09:34 Dose: 40 mg Potassium Chloride (K-Dur 20 Meq Er Tab) 40 meq PO BID [facility] Last Admin: 01/01/18 09:33 Dose: 40 meq Quetiapine Fumarate (Seroquel) 12.5 mg PO HS PRN; Protocol PRN Reason: psychosis, restlessness Thiamine HCl (Vitamin B1 Tab) 100 mg PO DAILY [facility] Last Admin: 01/01/18 09:35 Dose: 100 mg Zinc Sulfate (Zinc Sulfate 220 Mg Cap) 220 mg PO DAILY [facility] Last Admin: 01/01/18 09:35 Dose: 220 mg Ziprasidone (Geodon Inj) 10 mg IM BID PRN; Protocol PRN Reason: agitaiton/psychosis - Labs Labs: 12/28/17 05:45 12/28/17 05:45 PT 12.5 SECONDS (9.4-12.5) 12/09/17 10:00 INR 1.09 (0.93-1.08) H 12/09/17 10:00 APTT 28.3 Seconds (25.1-36.5) 11/30/17 05:30 Assessment and Plan - Assessment and Plan (Free Text) Assessment: - Constitutional Appears: Non-toxic, No Acute Distress - Head Exam Head Exam: ATRAUMATIC, NORMOCEPHALIC - Eye Exam Eye Exam: EOMI - ENT Exam ENT Exam: Mucous Membranes Moist - Respiratory Exam Respiratory Exam: Clear to Ausculation Bilateral, NORMAL BREATHING PATTERN. absent: Accessory Muscle Use - Cardiovascular Exam Cardiovascular Exam: RRR, +S1, +S2 - GI/Abdominal Exam GI & Abdominal Exam: Soft. absent: Guarding - Extremities Exam Extremities Exam: Normal Inspection - Neurological Exam Neurological Exam: Awake. absent: Normal Gait, Oriented x3 - Psychiatric Exam Psychiatric exam: Flat Affect - Skin Skin Exam: Dry, Intact, Normal Color, Warm Assessment and Plan - Assessment and Plan (Free Text) Assessment: Day 30 of 36 days of IV Ceftriaxone 57 year old male with unknown past medical history who was brought in via EMS for AMS covered in feces in his apartment. 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 He is on IV ceftriaxone for his bacteremia and is pending Transesophageal Echocardiogram and colonoscopy to rule out endocarditis and colon cancer, respectively. Important to note, patient is unable to give consent for TAHIR and colonoscopy secondary to being not of decision-making capacity. Plan: 1) AMS - Baseline unknown, though mental status appears to have improved - Patient responding to some questions appropriately with one-word answers, but is unable to answer most questions about his own history - Continue with delirium precautions 2) Bacteremia with Strep Viridans/Mitis and Coag Neg Staph Bacteremia -Continue IV Ceftriaxone therapy; course extended secondary to increased ESR/CRP -Repeat weekly ESR/CRP -Continue Motrin 400mg Q6 PRN for fever -Will continue weekly ESR and CRP -TAHIR to be done when consent can be obtained -Psychiatry, Cardiology, Neurology and ID consulted, all recommendations appreciated -PT/OT recommending JOSIAH upon discharge 3) Colonic Neoplasm -Flexible sigmoidoscopy/Colonoscopy to be done when consent can be obtained -GI consulted, all recommendations appreciated 4) Multifocal Pneumonia in the setting of recent Influenzae A infection -Continue with Ceftriaxone 5) Ischemic Stroke -Continue ASA 81mg and Lipitor 20mg 6) History of Alcohol Abuse/Withdrawal - PO Folate,Thiamine, and Multivitamin supplements - Fall, Seizure, and Aspiration precautions 6) DM II -SSI-High and Accuchecks ACHS -Levemir 10 units HS -Carb Consistent Diet 7) HTN - Continue Lisinopril 10mg - Norvasc 10mg PO daily 8) Stage 2 Sacral Decubitus Ulcers with associated Cellulitis - Continue Lotrimin AF 1% ointment - Continue wound care and Q2 repositioning - OOB to chair; patient is refusing at the moment. 9) Hypokalemia -Continue daily supplementation with KCl 40meq BID 10) Affective disorder, unspecified - Geodon PRN - Seroquel HS - Ativan 0.5 mg BID [facility] - mentally in no capacity to make his own healthcare decision - See psychiatry notes for details Patient discussed and reviewed with attending Dr. Galo <Sixto Galo - Last Filed: 01/01/18 16:52> Objective - Vital Signs/Intake and Output Vital Signs (last 24 hours): Temp Pulse Resp BP Pulse Ox 98.0 F 92 H 18 120/84 94 L 01/01/18 06:00 01/01/18 09:35 01/01/18 06:00 01/01/18 09:35 01/01/18 06:00 Intake and Output: 01/01/18 01/01/18 06:59 18:59 Intake Total 480 0 Balance 480 0 - Medications Medications: Current Medications Amlodipine Besylate (Norvasc) 10 mg PO DAILY [facility] Last Admin: 01/01/18 09:33 Dose: 10 mg Aspirin (Ecotrin) 81 mg PO DAILY [facility] Last Admin: 01/01/18 09:32 Dose: 81 mg Atorvastatin Calcium (Lipitor) 20 mg PO DIN [facility] Last Admin: 12/31/17 17:30 Dose: 20 mg Clotrimazole (Lotrimin Af 1%) 0 ml TOP BID [facility] Last Admin: 01/01/18 09:33 Dose: 1 applic Folic Acid (Folic Acid) 1 mg PO DAILY [facility] Last Admin: 01/01/18 09:32 Dose: 1 mg Heparin Sodium (Porcine) (Heparin) 5,000 units SC Q12 [facility] PRN Reason: Protocol Last Admin: 01/01/18 09:32 Dose: 5,000 units Hydralazine HCl (Apresoline) 10 mg IVP Q6 PRN PRN Reason: For SBP > 150 Last Admin: 12/13/17 08:32 Dose: 10 mg Ceftriaxone Sodium (Rocephin 2 Gm Ivpb) 2 gm in 100 mls @ 100 mls/hr IVPB DAILY [facility] PRN Reason: Protocol Last Admin: 01/01/18 09:34 Dose: 100 mls/hr Ibuprofen (Motrin Tab) 400 mg PO Q6H PRN PRN Reason: Fever >100.4 F Last Admin: 12/10/17 23:04 Dose: 400 mg Insulin Detemir (Levemir) 10 unit SC HS [facility] Last Admin: 12/31/17 22:45 Dose: 10 unit Insulin Human Regular (Humulin R High) 0 units SC ACHS [facility] PRN Reason: Protocol Last Admin: 01/01/18 13:07 Dose: 7 units Lisinopril (Zestril) 10 mg PO DAILY [facility] Last Admin: 01/01/18 09:35 Dose: 10 mg Lorazepam (Ativan) 0.5 mg PO BID [facility] PRN Reason: Protocol Last Admin: 01/01/18 09:32 Dose: 0.5 mg Multivitamins/Minerals (Therapeutic-M Tab) 1 tab PO 0800 [facility] Last Admin: 01/01/18 09:34 Dose: 1 tab Pantoprazole Sodium (Protonix Ec Tab) 40 mg PO ACB [facility] Last Admin: 01/01/18 09:34 Dose: 40 mg Potassium Chloride (K-Dur 20 Meq Er Tab) 40 meq PO BID [facility] Last Admin: 01/01/18 09:33 Dose: 40 meq Quetiapine Fumarate (Seroquel) 12.5 mg PO HS PRN; Protocol PRN Reason: psychosis, restlessness Thiamine HCl (Vitamin B1 Tab) 100 mg PO DAILY [facility] Last Admin: 01/01/18 09:35 Dose: 100 mg Zinc Sulfate (Zinc Sulfate 220 Mg Cap) 220 mg PO DAILY [facility] Last Admin: 01/01/18 09:35 Dose: 220 mg Ziprasidone (Geodon Inj) 10 mg IM BID PRN; Protocol PRN Reason: agitaiton/psychosis - Labs Labs: 12/28/17 05:45 12/28/17 05:45 PT 12.5 SECONDS (9.4-12.5) 12/09/17 10:00 INR 1.09 (0.93-1.08) H 12/09/17 10:00 APTT 28.3 Seconds (25.1-36.5) 11/30/17 05:30 Attending/Attestation - Attestation I have personally seen and examined this patient.: Yes I have fully participated in the care of the patient.: Yes I have reviewed all pertinent clinical information, including history, physical exam and plan: Yes Notes (Text): 01/01/18 16:51 57 year old male who was brought in for altered mental status, found in his apartment covered in feces. He was treated for right hip/buttock cellulitis, influenza and multifocal pneumonia. He was also found to have acute/subacute infarct on MRI. He is on aspirin and statin. Monitor LFTs while on statin. PT is recommending JOSIAH upon discharge. He was found to have strep viridians bacteremia for which he is on iv ceftriaxone (day ). TTE could not rule out vegetation. TAHIR at this time cannot be obtained due to lack of consent. He was also found to have colon mass and liver lesions. GI recommended possible flex sig, colonoscopy vs liver biopsy. However again consent is not able to be obtained at this time. He is on norvasc and lisinopril for hypertension and levemir for diabetes. Psychiatry follow up was appreciated. SW is also working on guardianship. Will follow up with updates on Wednesday. Sixto Galo MD Hospitalist.
--- NOTE | 2018-01-01 19:29 | PN ---
DATE: 01/01/2018 SUBJECTIVE: The patient seen earlier today in 363, bed 1. He is awake. No fevers and no chills. PHYSICAL EXAMINATION: VITAL SIGNS: Temperature is 98, blood pressure is 119/80, respiratory rate of 16. HEENT: Unremarkable. NECK: Supple. LUNGS: Have decreased breath sounds. HEART: Normal S1, S2. ABDOMEN: Soft, nontender. LABORATORY EXAMINATION: Reveals a white count of 6.7, hemoglobin of 12, platelets of 243 and BUN of 16, creatinine of 0.6. Vanco trough is 10.3. Review of orders reveals the patient to be on ceftriaxone. Last sed rate of 51 on the 12th and C-reactive protein is 6.36 also on the 12th, improving. ASSESSMENT AND PLAN: A 57-year-old male with sepsis due to streptococcus viridans and coag-negative staph bacteremia, right gluteal and back cellulitis, status post multifocal healthcare-associated pneumonia on top of influenza A infection. Currently on ceftriaxone, today is day #31 of 42 days and we will follow the sed rate, C-reactive protein, CPK and CBC rather and CMP once weekly. We will follow. Dainel Torres MD
[2018-01-01] MEDS: Insulin Detemir 100 units/ml Vial (Levemir) SC SCH (21:36)
[2018-01-02] MEDS: Insulin Reg-HIGH-Coverage SC SCH ×2 (00:44→08:33)
[2018-01-02] MEDS: Pantoprazole 40 mg EC Tab PO SCH (09:02)
[2018-01-02] MEDS: cefTRIAXone 2 GM IN NS 2 GM/100 ML BAG IVPB SCH (09:02)
[2018-01-02] MEDS: Multivitamin With Minerals Tab PO SCH (09:02)
[2018-01-02] MEDS: Potassium Chloride 20 mEq ER Tab PO SCH (09:02)
[2018-01-02] MEDS: Clotrimazole 1% Top Soln(10 ml) TOP SCH ×2 (09:06→17:07)
[2018-01-02] MEDS: Insulin Regular 1 UNITS/0.01 ML ML SC SCH ×2 (11:48→18:09)
--- NOTE | 2018-01-02 12:06 | CP.PCM.PN ---
<Hardeep Jones - Last Filed: 01/02/18 12:20> Subjective - Date & Time of Evaluation Date of Evaluation: 01/02/18 Time of Evaluation: 07:30 - Subjective Subjective: Hardeep Jones DO PGY1 - IM Progress Note Patient seen and examined at bedside. Per nursing staff, no acute events overnight. Patient was more verbal today, able to give puga responses consisting of 5-10 word phrases, including questions and challenges of his own. Patient was able to recall his prior workplace, still does not appear to understand or recall the circumstances surrounding his hospitalization. ROS is limited by his mental status, but when prompted, he denies any pains, fever, chills, or other somatic complaints. Patient was repeatedly asked to draw a clock, which he refused at first, but then he fazal a crude face, but no clock. Objective - Vital Signs/Intake and Output Vital Signs (last 24 hours): Temp Pulse Resp BP Pulse Ox 97.7 F 94 H 20 124/76 94 L 01/02/18 06:00 01/02/18 09:02 01/02/18 06:00 01/02/18 09:02 01/02/18 06:00 Intake and Output: 01/02/18 01/02/18 06:59 18:59 Intake Total 540 Balance 540 - Medications Medications: Current Medications Amlodipine Besylate (Norvasc) 10 mg PO DAILY [facility] Last Admin: 01/02/18 09:02 Dose: 10 mg Aspirin (Ecotrin) 81 mg PO DAILY [facility] Last Admin: 01/02/18 09:02 Dose: 81 mg Atorvastatin Calcium (Lipitor) 20 mg PO DIN [facility] Last Admin: 01/01/18 17:13 Dose: 20 mg Clotrimazole (Lotrimin Af 1%) 0 ml TOP BID [facility] Last Admin: 01/02/18 09:06 Dose: 1 applic Folic Acid (Folic Acid) 1 mg PO DAILY [facility] Last Admin: 01/02/18 09:02 Dose: 1 mg Heparin Sodium (Porcine) (Heparin) 5,000 units SC Q12 [facility] PRN Reason: Protocol Last Admin: 01/02/18 09:01 Dose: 5,000 units Hydralazine HCl (Apresoline) 10 mg IVP Q6 PRN PRN Reason: For SBP > 150 Last Admin: 12/13/17 08:32 Dose: 10 mg Ceftriaxone Sodium (Rocephin 2 Gm Ivpb) 2 gm in 100 mls @ 100 mls/hr IVPB DAILY [facility] PRN Reason: Protocol Last Admin: 01/02/18 09:02 Dose: 100 mls/hr Ibuprofen (Motrin Tab) 400 mg PO Q6H PRN PRN Reason: Fever >100.4 F Last Admin: 12/10/17 23:04 Dose: 400 mg Insulin Detemir (Levemir) 10 unit SC HS [facility] Last Admin: 01/01/18 21:36 Dose: 10 unit Insulin Human Lispro (Humalog Low) 0 units SC ACHS [facility] PRN Reason: Protocol Insulin Human Regular (Humulin R) 3 units SC AC [facility] Last Admin: 01/02/18 11:48 Dose: Not Given Lisinopril (Zestril) 10 mg PO DAILY [facility] Last Admin: 01/02/18 09:02 Dose: 10 mg Lorazepam (Ativan) 0.5 mg PO BID [facility] PRN Reason: Protocol Last Admin: 01/02/18 09:02 Dose: 0.5 mg Multivitamins/Minerals (Therapeutic-M Tab) 1 tab PO 0800 [facility] Last Admin: 01/02/18 09:02 Dose: 1 tab Pantoprazole Sodium (Protonix Ec Tab) 40 mg PO ACB [facility] Last Admin: 01/02/18 09:02 Dose: 40 mg Potassium Chloride (K-Dur 20 Meq Er Tab) 40 meq PO BID [facility] Last Admin: 01/02/18 09:02 Dose: 40 meq Quetiapine Fumarate (Seroquel) 12.5 mg PO HS PRN; Protocol PRN Reason: psychosis, restlessness Thiamine HCl (Vitamin B1 Tab) 100 mg PO DAILY [facility] Last Admin: 01/02/18 09:02 Dose: 100 mg Zinc Sulfate (Zinc Sulfate 220 Mg Cap) 220 mg PO DAILY [facility] Last Admin: 01/02/18 09:02 Dose: 220 mg Ziprasidone (Geodon Inj) 10 mg IM BID PRN; Protocol PRN Reason: agitaiton/psychosis - Labs Labs: 12/28/17 05:45 12/28/17 05:45 PT 12.5 SECONDS (9.4-12.5) 12/09/17 10:00 INR 1.09 (0.93-1.08) H 12/09/17 10:00 APTT 28.3 Seconds (25.1-36.5) 11/30/17 05:30 - Additional Findings Additional findings: - Constitutional Appears: Non-toxic, No Acute Distress - Head Exam Head Exam: ATRAUMATIC, NORMOCEPHALIC - Eye Exam Eye Exam: EOMI - ENT Exam ENT Exam: Mucous Membranes Moist - Respiratory Exam Respiratory Exam: Clear to Ausculation Bilateral, NORMAL BREATHING PATTERN. absent: Accessory Muscle Use - Cardiovascular Exam Cardiovascular Exam: RRR, +S1, +S2 - GI/Abdominal Exam GI & Abdominal Exam: Soft. absent: Guarding - Extremities Exam Extremities Exam: Normal Inspection - Neurological Exam Neurological Exam: Awake. absent: Normal Gait, Oriented x3 - Psychiatric Exam Psychiatric exam: Flat Affect - Skin Skin Exam: Dry, Intact, Normal Color, Warm Assessment and Plan - Assessment and Plan (Free Text) Assessment: 57 year old male with unknown past medical history who was brought in via EMS for AMS covered in feces in his apartment. 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 He is on IV ceftriaxone for his bacteremia and is pending Transesophageal Echocardiogram and colonoscopy to rule out endocarditis and colon cancer, respectively. Important to note, patient is unable to give consent for TAHIR and colonoscopy secondary to being not of decision-making capacity. Plan: 1) AMS - Baseline unknown, though mental status appears to have improved - Patient responding to some questions appropriately with one-word answers and some multi-word phrases - Executive function appears impaired - Will request neuro follow up considering changing mental status - Continue with delirium precautions 2) Bacteremia with Strep Viridans/Mitis and Coag Neg Staph Bacteremia -Continue IV Ceftriaxone therapy, currently day 32 of 42; course extended secondary to increased ESR/CRP -Repeat weekly ESR/CRP -Repeat blood cultures negative -TAHIR to be done when consent can be obtained -Psychiatry, Cardiology, Neurology and ID consulted, all recommendations appreciated -PT/OT recommending JOSIAH upon discharge 3) Colonic Neoplasm -Flexible sigmoidoscopy/Colonoscopy to be done when consent can be obtained -GI consulted, all recommendations appreciated 4) Multifocal Pneumonia in the setting of recent Influenzae A infection -Continue with Ceftriaxone 5) Ischemic Stroke -Continue ASA 81mg and Lipitor 20mg 6) History of Alcohol Abuse/Withdrawal - PO Folate,Thiamine, and Multivitamin supplements - Fall, Seizure, and Aspiration precautions 6) DM II -Blood glucose moderately controlled -Levemir 10 units HS -Added regular insulin 3u AC -Continue insulin lispart sliding scale low for additional coverage -Carb Consistent Diet 7) HTN - Continue Lisinopril 10mg - Norvasc 10mg PO daily 8) Stage 2 Sacral Decubitus Ulcers with associated Cellulitis - Continue Lotrimin AF 1% ointment - Continue wound care and Q2 repositioning - OOB to chair; patient is refusing at the moment. 9) Hypokalemia -K level has been stable -Recheck CMP in AM -Discontinue potassium supplement, pending CMP in AM 10) Affective disorder, unspecified - Geodon PRN - Seroquel HS - Ativan 0.5 mg BID [facility] - See psychiatry notes for details GI PPx: Protonix DVT Ppx: Lovenox Patient discussed and reviewed with attending Dr. Galo <Sixto Galo - Last Filed: 01/02/18 12:38> Objective - Vital Signs/Intake and Output Vital Signs (last 24 hours): Temp Pulse Resp BP Pulse Ox 97.7 F 94 H 20 124/76 94 L 01/02/18 06:00 01/02/18 09:02 01/02/18 06:00 01/02/18 09:02 01/02/18 06:00 Intake and Output: 01/02/18 01/02/18 06:59 18:59 Intake Total 540 Balance 540 - Medications Medications: Current Medications Amlodipine Besylate (Norvasc) 10 mg PO DAILY [facility] Last Admin: 01/02/18 09:02 Dose: 10 mg Aspirin (Ecotrin) 81 mg PO DAILY [facility] Last Admin: 01/02/18 09:02 Dose: 81 mg Atorvastatin Calcium (Lipitor) 20 mg PO DIN [facility] Last Admin: 01/01/18 17:13 Dose: 20 mg Clotrimazole (Lotrimin Af 1%) 0 ml TOP BID [facility] Last Admin: 01/02/18 09:06 Dose: 1 applic Enoxaparin Sodium (Lovenox) 40 mg SC DAILY [facility] PRN Reason: Protocol Folic Acid (Folic Acid) 1 mg PO DAILY [facility] Last Admin: 01/02/18 09:02 Dose: 1 mg Hydralazine HCl (Apresoline) 10 mg IVP Q6 PRN PRN Reason: For SBP > 150 Last Admin: 12/13/17 08:32 Dose: 10 mg Ceftriaxone Sodium (Rocephin 2 Gm Ivpb) 2 gm in 100 mls @ 100 mls/hr IVPB DAILY [facility] PRN Reason: Protocol Last Admin: 01/02/18 09:02 Dose: 100 mls/hr Ibuprofen (Motrin Tab) 400 mg PO Q6H PRN PRN Reason: Fever >100.4 F Last Admin: 12/10/17 23:04 Dose: 400 mg Insulin Detemir (Levemir) 10 unit SC HS [facility] Last Admin: 01/01/18 21:36 Dose: 10 unit Insulin Human Lispro (Humalog Low) 0 units SC ACHS [facility] PRN Reason: Protocol Insulin Human Regular (Humulin R) 3 units SC AC [facility] Last Admin: 01/02/18 11:48 Dose: Not Given Lisinopril (Zestril) 10 mg PO DAILY [facility] Last Admin: 01/02/18 09:02 Dose: 10 mg Lorazepam (Ativan) 0.5 mg PO BID [facility] PRN Reason: Protocol Last Admin: 01/02/18 09:02 Dose: 0.5 mg Multivitamins/Minerals (Therapeutic-M Tab) 1 tab PO 0800 [facility] Last Admin: 01/02/18 09:02 Dose: 1 tab Pantoprazole Sodium (Protonix Ec Tab) 40 mg PO 0600 [facility] Quetiapine Fumarate (Seroquel) 12.5 mg PO HS PRN; Protocol PRN Reason: psychosis, restlessness Thiamine HCl (Vitamin B1 Tab) 100 mg PO DAILY [facility] Last Admin: 01/02/18 09:02 Dose: 100 mg Zinc Sulfate (Zinc Sulfate 220 Mg Cap) 220 mg PO DAILY [facility] Last Admin: 01/02/18 09:02 Dose: 220 mg Ziprasidone (Geodon Inj) 10 mg IM BID PRN; Protocol PRN Reason: agitaiton/psychosis - Labs Labs: 12/28/17 05:45 12/28/17 05:45 PT 12.5 SECONDS (9.4-12.5) 12/09/17 10:00 INR 1.09 (0.93-1.08) H 12/09/17 10:00 APTT 28.3 Seconds (25.1-36.5) 11/30/17 05:30 Attending/Attestation - Attestation I have personally seen and examined this patient.: Yes I have fully participated in the care of the patient.: Yes I have reviewed all pertinent clinical information, including history, physical exam and plan: Yes Notes (Text): 01/02/18 12:37 57 year old male who was brought in for altered mental status, found in his apartment covered in feces. He was treated for right hip/buttock cellulitis, influenza and multifocal pneumonia. He was also found to have acute/subacute infarct on MRI. He is on aspirin and statin. Monitor LFTs while on statin. PT is recommending JOSIAH upon discharge. He was found to have strep viridians bacteremia for which he is on iv ceftriaxone (day 32). TTE could not rule out vegetation. TAHIR at this time cannot be obtained due to lack of consent. He was also found to have colon mass and liver lesions. GI recommended possible flex sig, colonoscopy vs liver biopsy. However again consent is not able to be obtained at this time. He is on norvasc and lisinopril for hypertension and levemir for diabetes. Psychiatry follow up was appreciated. SW is also working on guardianship. Agree with requesting neurology follow up. Sixto Galo MD Hospitalist.
[2018-01-02] MEDS: Insulin Lispro (humaLOG) LOW Coverage SC SCH ×3 (12:40→22:15)
--- NOTE | 2018-01-02 14:40 | PN ---
DATE: 01/02/2018 SUBJECTIVE: The patient is in bed, in no acute distress, was seen earlier in 363. PHYSICAL EXAMINATION: VITAL SIGNS: Temperature is 97.7, blood pressure is 124/70, respiratory rate of 20, heart rate of 94. The patient's saturation of 94%. HEENT: Examination of HEENT is unremarkable. NECK: Supple. LUNGS: Have decreased breath sounds. HEART: Normal S1, S2. ABDOMEN: Soft, nontender. LABORATORY EXAMINATION: Reveals a white count of 6.7, hemoglobin of 12 and the BUN of 16, creatinine of 0.6. ASSESSMENT AND PLAN: A 57-year-old male with sepsis due to Streptococcus viridans, coag-negative Staphylococcus bacteremia, right gluteal and back cellulitis, status post multifocal healthcare-associated pneumonia on top of influenza infection, on ceftriaxone day #32 of 42 days with a weekly CBC, SMA-18, sed rate, C-reactive protein. Daniel Torres MD
[2018-01-02] MEDS: Insulin Detemir 100 units/ml Vial (Levemir) SC SCH (22:15)
[2018-01-03] MEDS: Pantoprazole 40 mg EC Tab PO SCH (05:38)
[2018-01-03 06:29] LABS: BASO # 0.04 K/mm3 (0.0-2.0); BASO % 0.5 % (0.0-3.0); EOS # 0.2 (0.0-0.7); EOS % 2.5 % (1.5-5.0); GRAN # 4.27 (1.4-6.5); GRAN % 53.3 % (50.0-68.0); HEMOGLOBIN 12.4 g/dL (14.0-18.0); LYMPH # 2.7 (1.2-3.4); LYMPH % 33.8 % (22.0-35.0); MEAN CELL VOLUME 86.5 fl (80.0-105.0); MEAN CORPUSCULAR HEMOGLOBIN 28.8 pg (25.0-35.0); MEAN CORPUSCULAR HGB CONC 33.3 g/dl (31.0-37.0); MEAN PLATELET VOLUME 9.5 fl (7.0-11.0); MONO # 0.8 (0.1-0.6); MONO % 9.9 % (1.0-6.0); RBC 4.3 10^6/uL (3.5-6.1); RED CELL DISTRIBUTION WIDTH 16.5 % (11.5-14.5)
[2018-01-03 06:45] LABS: ALB/GLOB RATIO 1.1 (1.1-1.8); ALBUMIN 3.7 g/dL (3.0-4.8); ALT/SGPT 31 U/L (7-56); AST/SGOT 26 U/L (17-59); BLOOD UREA NITROGEN 16 mg/dL (7-21); CALCIUM 10.4 mg/dL (8.4-10.5); GFR NON-AFRICAN AMERICAN > 60
[2018-01-03] MEDS: Insulin Regular 1 UNITS/0.01 ML ML SC SCH ×3 (08:00→17:57)
--- NOTE | 2018-01-03 08:00 | CP.PCM.PN ---
<Nikita Hurley - Last Filed: 01/03/18 13:43> Subjective - Date & Time of Evaluation Date of Evaluation: 01/03/18 Time of Evaluation: 07:55 - Subjective Subjective: Patient seen and examined at bedside. 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 " [place]." " What is your brother's name?" "Margarito." What is your brother's last name?" " Are you kidding me... Montano." "Do you have any other siblings?" "No." Nurse reports patient asked for water last night and no untoward events. Objective - Vital Signs/Intake and Output Vital Signs (last 24 hours): Temp Pulse Resp BP Pulse Ox 98.6 F 98 H 20 106/69 95 01/02/18 17:52 01/02/18 17:52 01/02/18 17:52 01/02/18 17:52 01/02/18 17:52 Intake and Output: 01/03/18 01/03/18 06:59 18:59 Intake Total 780 Output Total 1 Balance 779 - Medications Medications: Current Medications Amlodipine Besylate (Norvasc) 10 mg PO DAILY [facility] Last Admin: 01/02/18 09:02 Dose: 10 mg Aspirin (Ecotrin) 81 mg PO DAILY [facility] Last Admin: 01/02/18 09:02 Dose: 81 mg Atorvastatin Calcium (Lipitor) 20 mg PO DIN [facility] Last Admin: 01/02/18 17:07 Dose: 20 mg Clotrimazole (Lotrimin Af 1%) 0 ml TOP BID [facility] Last Admin: 01/02/18 17:07 Dose: 1 applic Enoxaparin Sodium (Lovenox) 40 mg SC DAILY [facility] PRN Reason: Protocol Folic Acid (Folic Acid) 1 mg PO DAILY [facility] Last Admin: 01/02/18 09:02 Dose: 1 mg Hydralazine HCl (Apresoline) 10 mg IVP Q6 PRN PRN Reason: For SBP > 150 Last Admin: 12/13/17 08:32 Dose: 10 mg Ceftriaxone Sodium (Rocephin 2 Gm Ivpb) 2 gm in 100 mls @ 100 mls/hr IVPB DAILY [facility] PRN Reason: Protocol Last Admin: 01/02/18 09:02 Dose: 100 mls/hr Ibuprofen (Motrin Tab) 400 mg PO Q6H PRN PRN Reason: Fever >100.4 F Last Admin: 12/10/17 23:04 Dose: 400 mg Insulin Detemir (Levemir) 10 unit SC HS [facility] Last Admin: 01/02/18 22:15 Dose: Not Given Insulin Human Lispro (Humalog Low) 0 units SC ACHS [facility] PRN Reason: Protocol Last Admin: 01/02/18 22:15 Dose: Not Given Insulin Human Regular (Humulin R) 3 units SC AC [facility] Last Admin: 01/02/18 18:09 Dose: 3 units Lisinopril (Zestril) 10 mg PO DAILY [facility] Last Admin: 01/02/18 09:02 Dose: 10 mg Lorazepam (Ativan) 0.5 mg PO BID [facility] PRN Reason: Protocol Last Admin: 01/02/18 17:07 Dose: 0.5 mg Multivitamins/Minerals (Therapeutic-M Tab) 1 tab PO 0800 [facility] Last Admin: 01/02/18 09:02 Dose: 1 tab Pantoprazole Sodium (Protonix Ec Tab) 40 mg PO 0600 [facility] Last Admin: 01/03/18 05:38 Dose: 40 mg Quetiapine Fumarate (Seroquel) 12.5 mg PO HS PRN; Protocol PRN Reason: psychosis, restlessness Thiamine HCl (Vitamin B1 Tab) 100 mg PO DAILY [facility] Last Admin: 01/02/18 09:02 Dose: 100 mg Zinc Sulfate (Zinc Sulfate 220 Mg Cap) 220 mg PO DAILY [facility] Last Admin: 01/02/18 09:02 Dose: 220 mg Ziprasidone (Geodon Inj) 10 mg IM BID PRN; Protocol PRN Reason: agitaiton/psychosis - Labs Labs: 01/03/18 05:20 01/03/18 05:20 PT 12.5 SECONDS (9.4-12.5) 12/09/17 10:00 INR 1.09 (0.93-1.08) H 12/09/17 10:00 APTT 28.3 Seconds (25.1-36.5) 11/30/17 05:30 - Constitutional Appears: No Acute Distress, Unkempt - Head Exam Head Exam: ATRAUMATIC, NORMOCEPHALIC - Eye Exam Eye Exam: EOMI, Normal appearance - ENT Exam ENT Exam: Mucous Membranes Moist, Normal Oropharynx - Respiratory Exam Respiratory Exam: Clear to Ausculation Bilateral, NORMAL BREATHING PATTERN. absent: Accessory Muscle Use - Cardiovascular Exam Cardiovascular Exam: RRR, +S1, +S2 - GI/Abdominal Exam GI & Abdominal Exam: Soft, Normal Bowel Sounds - Extremities Exam Extremities Exam: Normal Inspection - Neurological Exam Neurological Exam: Alert, Awake Additional comments: patient can follow simple commands such as touch nose with left index finger, lift left leg up, etc - Psychiatric Exam Psychiatric exam: Flat Affect - Skin Skin Exam: Dry, Intact, Normal Color, Warm Assessment and Plan - Assessment and Plan (Free Text) Assessment: 57 year old male with unknown past medical history who was brought in via EMS for AMS covered in feces in his apartment. 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 He is on IV ceftriaxone for his bacteremia and is pending Transesophageal Echocardiogram and colonoscopy to rule out endocarditis and colon cancer, respectively. Important to note, patient is unable to give consent for TAHIR and colonoscopy secondary to being not of decision-making capacity. Patient is day 33 of 42 of antibiotic treatment. Plan: 1) AMS - Baseline unknown, though mental status appears to have improved - Patient responding to some questions appropriately with one-word answers and some multi-word phrases - Executive function appears impaired - Will request neuro follow up considering changing mental status - Continue with delirium precautions 2) Bacteremia with Strep Viridans/Mitis and Coag Neg Staph Bacteremia -Continue IV Ceftriaxone therapy, currently day 33 ; course extended secondary to increased ESR/CRP -Repeat weekly ESR/CRP -Repeat blood cultures negative -TAHIR to be done when consent can be obtained -Psychiatry, Cardiology, Neurology and ID consulted, all recommendations appreciated -PT/OT recommending JOSIAH upon discharge 3) Colonic Neoplasm -Flexible sigmoidoscopy/Colonoscopy to be done when consent can be obtained -GI consulted, all recommendations appreciated 4) Multifocal Pneumonia in the setting of recent Influenzae A infection -Continue with Ceftriaxone. 5) Ischemic Stroke -Continue ASA 81mg and Lipitor 20mg 6) History of Alcohol Abuse/Withdrawal - PO Folate,Thiamine, and Multivitamin supplements - Fall, Seizure, and Aspiration precautions 6) DM II -Blood glucose moderately controlled -Levemir 10 units HS -Added regular insulin 3u AC -Continue insulin lispart sliding scale low for additional coverage -Carb Consistent Diet 7) HTN - Continue Lisinopril 10mg - Norvasc 10mg PO daily 8) Stage 2 Sacral Decubitus Ulcers with associated Cellulitis - Continue Lotrimin AF 1% ointment - Continue wound care and Q2 repositioning - OOB to chair; patient is refusing at the moment. 9) Hypokalemia -K level has been stable -Recheck CMP in AM -Discontinue potassium supplement, pending CMP in AM 10) Affective disorder, unspecified - Geodon PRN - Seroquel HS - Ativan 0.5 mg BID [facility] - See psychiatry notes for details GI PPx: Protonix DVT Ppx: Lovenox Patient discussed and reviewed with attending Dr. Schumacher <Deanna Schumacher - Last Filed: 01/03/18 14:09> Objective - Vital Signs/Intake and Output Vital Signs (last 24 hours): Temp Pulse Resp BP Pulse Ox 97.5 F L 91 H 20 123/81 95 01/03/18 08:24 01/03/18 10:04 01/03/18 08:24 01/03/18 10:04 01/03/18 08:24 Intake and Output: 01/03/18 01/03/18 06:59 18:59 Intake Total 780 Output Total 1 Balance 779 - Medications Medications: Current Medications Amlodipine Besylate (Norvasc) 10 mg PO DAILY [facility] Last Admin: 01/03/18 10:03 Dose: 10 mg Aspirin (Ecotrin) 81 mg PO DAILY [facility] Last Admin: 01/03/18 10:03 Dose: 81 mg Atorvastatin Calcium (Lipitor) 20 mg PO DIN [facility] Last Admin: 01/02/18 17:07 Dose: 20 mg Clotrimazole (Lotrimin Af 1%) 0 ml TOP BID [facility] Last Admin: 01/03/18 10:05 Dose: 1 applic Enoxaparin Sodium (Lovenox) 40 mg SC DAILY [facility] PRN Reason: Protocol Last Admin: 01/03/18 10:05 Dose: 40 mg Folic Acid (Folic Acid) 1 mg PO DAILY [facility] Last Admin: 01/03/18 10:04 Dose: 1 mg Hydralazine HCl (Apresoline) 10 mg IVP Q6 PRN PRN Reason: For SBP > 150 Last Admin: 12/13/17 08:32 Dose: 10 mg Ceftriaxone Sodium (Rocephin 2 Gm Ivpb) 2 gm in 100 mls @ 100 mls/hr IVPB DAILY [facility] PRN Reason: Protocol Last Admin: 01/03/18 10:04 Dose: 100 mls/hr Ibuprofen (Motrin Tab) 400 mg PO Q6H PRN PRN Reason: Fever >100.4 F Last Admin: 12/10/17 23:04 Dose: 400 mg Insulin Detemir (Levemir) 10 unit SC HS [facility] Last Admin: 01/02/18 22:15 Dose: Not Given Insulin Human Lispro (Humalog Low) 0 units SC ACHS [facility] PRN Reason: Protocol Last Admin: 01/03/18 08:06 Dose: Not Given Insulin Human Regular (Humulin R) 3 units SC AC [facility] Last Admin: 01/03/18 08:00 Dose: Not Given Lisinopril (Zestril) 10 mg PO DAILY [facility] Last Admin: 01/03/18 10:04 Dose: 10 mg Lorazepam (Ativan) 0.5 mg PO BID [facility] PRN Reason: Protocol Last Admin: 01/03/18 10:04 Dose: 0.5 mg Multivitamins/Minerals (Therapeutic-M Tab) 1 tab PO 0800 [facility] Last Admin: 01/03/18 10:03 Dose: 1 tab Pantoprazole Sodium (Protonix Ec Tab) 40 mg PO 0600 [facility] Last Admin: 01/03/18 05:38 Dose: 40 mg Quetiapine Fumarate (Seroquel) 12.5 mg PO HS PRN; Protocol PRN Reason: psychosis, restlessness Thiamine HCl (Vitamin B1 Tab) 100 mg PO DAILY [facility] Last Admin: 01/03/18 10:04 Dose: 100 mg Zinc Sulfate (Zinc Sulfate 220 Mg Cap) 220 mg PO DAILY [facility] Last Admin: 01/03/18 10:03 Dose: 220 mg Ziprasidone (Geodon Inj) 10 mg IM BID PRN; Protocol PRN Reason: agitaiton/psychosis - Labs Labs: 01/03/18 05:20 01/03/18 05:20 PT 12.5 SECONDS (9.4-12.5) 12/09/17 10:00 INR 1.09 (0.93-1.08) H 12/09/17 10:00 APTT 28.3 Seconds (25.1-36.5) 11/30/17 05:30 Attending/Attestation - Attestation I have personally seen and examined this patient.: Yes I have fully participated in the care of the patient.: Yes I have reviewed all pertinent clinical information, including history, physical exam and plan: Yes Notes (Text): 01/03/18 14:09 Medical record note made by the resident after discussion with my direction and input after the patient was personally seen and examined by me. I have reviewed the chart and agree that the record accurately reflects by personal performance of the history, physical exam, data review, and medical decision-making, in the course for the patient. I have also personally directed the plan of care.
[2018-01-03] MEDS: Insulin Lispro (humaLOG) LOW Coverage SC SCH ×4 (08:06→22:05)
[2018-01-03] MEDS: Multivitamin With Minerals Tab PO SCH (10:03)
[2018-01-03] MEDS: cefTRIAXone 2 GM IN NS 2 GM/100 ML BAG IVPB SCH (10:04)
[2018-01-03] MEDS: Enoxaparin 40 mg Syringe SC SCH (10:05)
[2018-01-03] MEDS: Clotrimazole 1% Top Soln(10 ml) TOP SCH ×2 (10:05→17:56)
[2018-01-03] MEDS: Insulin Detemir 100 units/ml Vial (Levemir) SC SCH (22:05)
[2018-01-04] MEDS: Pantoprazole 40 mg EC Tab PO SCH (06:59)
[2018-01-04] MEDS: Insulin Regular 1 UNITS/0.01 ML ML SC SCH ×3 (08:37→17:04)
[2018-01-04] MEDS: Insulin Lispro (humaLOG) LOW Coverage SC SCH ×4 (08:37→21:19)
[2018-01-04] MEDS: Multivitamin With Minerals Tab PO SCH (08:38)
[2018-01-04] MEDS: cefTRIAXone 2 GM IN NS 2 GM/100 ML BAG IVPB SCH (09:14)
[2018-01-04] MEDS: Enoxaparin 40 mg Syringe SC SCH (09:15)
[2018-01-04] MEDS: Clotrimazole 1% Top Soln(10 ml) TOP SCH ×2 (09:16→17:05)
--- NOTE | 2018-01-04 14:00 | CP.PCM.PN ---
<Nikita Hurley - Last Filed: 01/04/18 13:57> Subjective - Date & Time of Evaluation Date of Evaluation: 01/04/18 Time of Evaluation: 07:00 - Subjective Subjective: Nikita Hurley DO, PGY-1: Hospitalist Service Patient seen and examined at bedside. Nurse reports no events overnight. Patient states he feels "rotten." Patient is not oriented to person, place, or time. He outright refuses to get OOB to chair (possibly secondary to immobility , weakness, or lack of executive capacity.) Objective - Vital Signs/Intake and Output Vital Signs (last 24 hours): Temp Pulse Resp BP Pulse Ox 97.8 F 97 H 20 121/89 97 01/04/18 08:35 01/04/18 09:16 01/04/18 08:35 01/04/18 09:16 01/04/18 08:35 Intake and Output: 01/04/18 01/04/18 06:59 18:59 Intake Total 780 Balance 780 - Medications Medications: Current Medications Amlodipine Besylate (Norvasc) 10 mg PO DAILY [facility] Last Admin: 01/04/18 09:15 Dose: 10 mg Aspirin (Ecotrin) 81 mg PO DAILY [facility] Last Admin: 01/04/18 09:16 Dose: 81 mg Atorvastatin Calcium (Lipitor) 20 mg PO DIN [facility] Last Admin: 01/03/18 17:53 Dose: 20 mg Clotrimazole (Lotrimin Af 1%) 0 ml TOP BID [facility] Last Admin: 01/04/18 09:16 Dose: 1 applic Enoxaparin Sodium (Lovenox) 40 mg SC DAILY [facility] PRN Reason: Protocol Last Admin: 01/04/18 09:15 Dose: 40 mg Folic Acid (Folic Acid) 1 mg PO DAILY [facility] Last Admin: 01/04/18 09:16 Dose: 1 mg Hydralazine HCl (Apresoline) 10 mg IVP Q6 PRN PRN Reason: For SBP > 150 Last Admin: 12/13/17 08:32 Dose: 10 mg Ceftriaxone Sodium (Rocephin 2 Gm Ivpb) 2 gm in 100 mls @ 100 mls/hr IVPB DAILY [facility] PRN Reason: Protocol Last Admin: 01/04/18 09:14 Dose: 100 mls/hr Insulin Detemir (Levemir) 10 unit SC [facility] Last Admin: 01/03/18 22:05 Dose: 10 unit Insulin Human Lispro (Humalog Low) 0 units SC ACHS [facility] PRN Reason: Protocol Last Admin: 01/04/18 12:49 Dose: 1 units Insulin Human Regular (Humulin R) 3 units SC AC [facility] Last Admin: 01/04/18 12:49 Dose: 3 units Lisinopril (Zestril) 10 mg PO DAILY [facility] Last Admin: 01/04/18 09:16 Dose: 10 mg Lorazepam (Ativan) 0.5 mg PO BID [facility] PRN Reason: Protocol Last Admin: 01/04/18 09:16 Dose: 0.5 mg Multivitamins/Minerals (Therapeutic-M Tab) 1 tab PO 0800 [facility] Last Admin: 01/04/18 08:38 Dose: 1 tab Pantoprazole Sodium (Protonix Ec Tab) 40 mg PO 0600 [facility] Last Admin: 01/04/18 06:59 Dose: 40 mg Quetiapine Fumarate (Seroquel) 12.5 mg PO PRN; Protocol PRN Reason: psychosis, restlessness Last Admin: 01/03/18 22:05 Dose: 12.5 mg Thiamine HCl (Vitamin B1 Tab) 100 mg PO DAILY [facility] Last Admin: 01/04/18 09:16 Dose: 100 mg Zinc Sulfate (Zinc Sulfate 220 Mg Cap) 220 mg PO DAILY [facility] Last Admin: 01/04/18 09:15 Dose: 220 mg - Labs Labs: 01/03/18 05:20 01/03/18 05:20 PT 12.5 SECONDS (9.4-12.5) 12/09/17 10:00 INR 1.09 (0.93-1.08) H 12/09/17 10:00 APTT 28.3 Seconds (25.1-36.5) 11/30/17 05:30 - Constitutional Appears: Non-toxic, No Acute Distress - Head Exam Head Exam: ATRAUMATIC, NORMOCEPHALIC - Eye Exam Eye Exam: EOMI, Normal appearance - ENT Exam ENT Exam: Mucous Membranes Moist - Neck Exam Neck Exam: Normal Inspection - Respiratory Exam Respiratory Exam: Clear to Ausculation Bilateral, NORMAL BREATHING PATTERN - Cardiovascular Exam Cardiovascular Exam: +S1, +S2 - GI/Abdominal Exam GI & Abdominal Exam: Soft. absent: Distended, Guarding - Rectal Exam Rectal Exam: NORMAL INSPECTION. absent: Fecal Impaction - Extremities Exam Extremities Exam: Normal Inspection - Back Exam Additional comments: no decubitus ulcers noted - Neurological Exam Neurological Exam: Alert, Awake Additional comments: patient is not oriented to person, place, or time - Psychiatric Exam Psychiatric exam: Depressed, Flat Affect - Skin Skin Exam: Dry, Intact, Normal Color, Warm Assessment and Plan - Assessment and Plan (Free Text) Assessment: 57 year old male with unknown past medical history who was brought in via EMS for AMS covered in feces in his apartment. 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 He is on IV ceftriaxone for his bacteremia and is pending Transesophageal Echocardiogram and colonoscopy to rule out endocarditis and colon cancer, respectively. Important to note, patient is unable to give consent for TAHIR and colonoscopy secondary to being not of decision-making capacity. Patient is day 34 of antibiotic treatment. Plan: 1) AMS - Baseline unknown, though mental status appears to have improved - Patient responding to some questions appropriately with one-word answers and some multi-word phrases - Executive function is impaired - Continue with delirium precautions 2) Bacteremia with Strep Viridans/Mitis and Coag Neg Staph Bacteremia -Continue IV Ceftriaxone therapy, currently day 34 ; course extended secondary to increased ESR/CRP -Repeat weekly ESR/CRP -Repeat blood cultures negative -TAHIR to be done when consent can be obtained -Psychiatry, Cardiology, Neurology and ID consulted, all recommendations appreciated -PT/OT recommending JOSIAH upon discharge 3) Colonic Neoplasm -Flexible sigmoidoscopy/Colonoscopy to be done when consent can be obtained -GI consulted, all recommendations appreciated 4) Multifocal Pneumonia in the setting of recent Influenzae A infection -Continue with Ceftriaxone. 5) Ischemic Stroke -Continue ASA 81mg and Lipitor 20mg 6) History of Alcohol Abuse/Withdrawal - PO Folate,Thiamine, and Multivitamin supplements - Fall, Seizure, and Aspiration precautions 6) DM II -Blood glucose moderately controlled -Levemir 10 units HS -Added regular insulin 3u AC -Continue insulin lispart sliding scale low for additional coverage -Carb Consistent Diet 7) HTN - Continue Lisinopril 10mg - Norvasc 10mg PO daily 8) Stage 2 Sacral Decubitus Ulcers with associated Cellulitis - Continue Lotrimin AF 1% ointment - Continue wound care and Q2 repositioning - OOB to chair; patient is refusing. 9) Hypokalemia -K level has been stable -Recheck CMP in AM -Discontinue potassium supplement, pending CMP in AM 10) Affective disorder, unspecified - Geodon PRN - Seroquel HS - Ativan 0.5 mg BID [facility] - Psychiatry consulted, recommendations noted Disposition: Guardianship GI PPx: Protonix DVT Ppx: Lovenox Patient discussed and reviewed with attending Dr. Schumacher <Deanna Schumacher - Last Filed: 01/04/18 15:48> Objective - Vital Signs/Intake and Output Vital Signs (last 24 hours): Temp Pulse Resp BP Pulse Ox 97.8 F 97 H 20 121/89 97 01/04/18 08:35 01/04/18 09:16 01/04/18 08:35 01/04/18 09:16 01/04/18 08:35 Intake and Output: 01/04/18 01/04/18 06:59 18:59 Intake Total 780 925 Balance 780 925 - Medications Medications: Current Medications Amlodipine Besylate (Norvasc) 10 mg PO DAILY [facility] Last Admin: 01/04/18 09:15 Dose: 10 mg Aspirin (Ecotrin) 81 mg PO DAILY [facility] Last Admin: 01/04/18 09:16 Dose: 81 mg Atorvastatin Calcium (Lipitor) 20 mg PO DIN [facility] Last Admin: 01/03/18 17:53 Dose: 20 mg Clotrimazole (Lotrimin Af 1%) 0 ml TOP BID [facility] Last Admin: 01/04/18 09:16 Dose: 1 applic Enoxaparin Sodium (Lovenox) 40 mg SC DAILY [facility] PRN Reason: Protocol Last Admin: 01/04/18 09:15 Dose: 40 mg Folic Acid (Folic Acid) 1 mg PO DAILY [facility] Last Admin: 01/04/18 09:16 Dose: 1 mg Hydralazine HCl (Apresoline) 10 mg IVP Q6 PRN PRN Reason: For SBP > 150 Last Admin: 12/13/17 08:32 Dose: 10 mg Ceftriaxone Sodium (Rocephin 2 Gm Ivpb) 2 gm in 100 mls @ 100 mls/hr IVPB DAILY [facility] PRN Reason: Protocol Last Admin: 01/04/18 09:14 Dose: 100 mls/hr Insulin Detemir (Levemir) 10 unit SC HS [facility] Last Admin: 01/03/18 22:05 Dose: 10 unit Insulin Human Lispro (Humalog Low) 0 units SC ACHS [facility] PRN Reason: Protocol Last Admin: 01/04/18 12:49 Dose: 1 units Insulin Human Regular (Humulin R) 3 units SC AC [facility] Last Admin: 01/04/18 12:49 Dose: 3 units Lisinopril (Zestril) 10 mg PO DAILY [facility] Last Admin: 01/04/18 09:16 Dose: 10 mg Lorazepam (Ativan) 0.5 mg PO BID [facility] PRN Reason: Protocol Last Admin: 01/04/18 09:16 Dose: 0.5 mg Multivitamins/Minerals (Therapeutic-M Tab) 1 tab PO 0800 [facility] Last Admin: 01/04/18 08:38 Dose: 1 tab Pantoprazole Sodium (Protonix Ec Tab) 40 mg PO 0600 [facility] Last Admin: 01/04/18 06:59 Dose: 40 mg Quetiapine Fumarate (Seroquel) 12.5 mg PO HS PRN; Protocol PRN Reason: psychosis, restlessness Last Admin: 01/03/18 22:05 Dose: 12.5 mg Thiamine HCl (Vitamin B1 Tab) 100 mg PO DAILY [facility] Last Admin: 01/04/18 09:16 Dose: 100 mg Zinc Sulfate (Zinc Sulfate 220 Mg Cap) 220 mg PO DAILY [facility] Last Admin: 01/04/18 09:15 Dose: 220 mg - Labs Labs: 01/03/18 05:20 01/03/18 05:20 PT 12.5 SECONDS (9.4-12.5) 12/09/17 10:00 INR 1.09 (0.93-1.08) H 12/09/17 10:00 APTT 28.3 Seconds (25.1-36.5) 11/30/17 05:30 Attending/Attestation - Attestation I have personally seen and examined this patient.: Yes I have fully participated in the care of the patient.: Yes I have reviewed all pertinent clinical information, including history, physical exam and plan: Yes Notes (Text): 01/04/18 15:48 Patient remain stable at base line. Medical record note made by the resident after discussion with my direction and input after the patient was personally seen and examined by me. I have reviewed the chart and agree that the record accurately reflects by personal performance of the history, physical exam, data review, and medical decision-making, in the course for the patient. I have also personally directed the plan of care.
--- NOTE | 2018-01-04 17:19 | CP.PCM.PN ---
Subjective - Date & Time of Evaluation Date of Evaluation: 01/04/18 Time of Evaluation: 10:50 - Subjective Subjective: No fevers, not in distress, no diarrhea. Objective - Vital Signs/Intake and Output Vital Signs (last 24 hours): Temp Pulse Resp BP Pulse Ox 97.8 F 97 H 20 121/89 97 01/04/18 08:35 01/04/18 08:35 01/04/18 08:35 01/04/18 08:35 01/04/18 08:35 Intake and Output: 01/04/18 01/04/18 06:59 18:59 Intake Total 780 Balance 780 - Medications Medications: Current Medications Amlodipine Besylate (Norvasc) 10 mg PO DAILY [facility] Last Admin: 01/03/18 10:03 Dose: 10 mg Aspirin (Ecotrin) 81 mg PO DAILY [facility] Last Admin: 01/03/18 10:03 Dose: 81 mg Atorvastatin Calcium (Lipitor) 20 mg PO DIN [facility] Last Admin: 01/03/18 17:53 Dose: 20 mg Clotrimazole (Lotrimin Af 1%) 0 ml TOP BID [facility] Last Admin: 01/03/18 17:56 Dose: 1 applic Enoxaparin Sodium (Lovenox) 40 mg SC DAILY [facility] PRN Reason: Protocol Last Admin: 01/03/18 10:05 Dose: 40 mg Folic Acid (Folic Acid) 1 mg PO DAILY [facility] Last Admin: 01/03/18 10:04 Dose: 1 mg Hydralazine HCl (Apresoline) 10 mg IVP Q6 PRN PRN Reason: For SBP > 150 Last Admin: 12/13/17 08:32 Dose: 10 mg Ceftriaxone Sodium (Rocephin 2 Gm Ivpb) 2 gm in 100 mls @ 100 mls/hr IVPB DAILY [facility] PRN Reason: Protocol Last Admin: 01/03/18 10:04 Dose: 100 mls/hr Insulin Detemir (Levemir) 10 unit SC HS [facility] Last Admin: 01/03/18 22:05 Dose: 10 unit Insulin Human Lispro (Humalog Low) 0 units SC ACHS [facility] PRN Reason: Protocol Last Admin: 01/04/18 08:37 Dose: 1 units Insulin Human Regular (Humulin R) 3 units SC AC [facility] Last Admin: 01/04/18 08:37 Dose: 3 units Lisinopril (Zestril) 10 mg PO DAILY [facility] Last Admin: 01/03/18 10:04 Dose: 10 mg Lorazepam (Ativan) 0.5 mg PO BID [facility] PRN Reason: Protocol Last Admin: 01/03/18 17:53 Dose: 0.5 mg Multivitamins/Minerals (Therapeutic-M Tab) 1 tab PO 0800 [facility] Last Admin: 01/04/18 08:38 Dose: 1 tab Pantoprazole Sodium (Protonix Ec Tab) 40 mg PO 0600 [facility] Last Admin: 01/04/18 06:59 Dose: 40 mg Quetiapine Fumarate (Seroquel) 12.5 mg PO HS PRN; Protocol PRN Reason: psychosis, restlessness Last Admin: 01/03/18 22:05 Dose: 12.5 mg Thiamine HCl (Vitamin B1 Tab) 100 mg PO DAILY [facility] Last Admin: 01/03/18 10:04 Dose: 100 mg Zinc Sulfate (Zinc Sulfate 220 Mg Cap) 220 mg PO DAILY [facility] Last Admin: 01/03/18 10:03 Dose: 220 mg Ziprasidone (Geodon Inj) 10 mg IM BID PRN; Protocol PRN Reason: agitaiton/psychosis - Labs Labs: 01/03/18 05:20 01/03/18 05:20 PT 12.5 SECONDS (9.4-12.5) 12/09/17 10:00 INR 1.09 (0.93-1.08) H 12/09/17 10:00 APTT 28.3 Seconds (25.1-36.5) 11/30/17 05:30 - Constitutional Appears: Chronically Ill - Head Exam Head Exam: NORMAL INSPECTION - ENT Exam ENT Exam: Mucous Membranes Moist - Neck Exam Neck Exam: absent: Meningismus - Respiratory Exam Respiratory Exam: Decreased Breath Sounds - Cardiovascular Exam Cardiovascular Exam: +S1, +S2 - GI/Abdominal Exam GI & Abdominal Exam: Soft. absent: Tenderness Assessment and Plan - Assessment and Plan (Free Text) Plan: Assessment sepsis due to strep viridans and CoNS bacteremia from right gluteal and back cellulitis S/P multifocal HCAP on top of Influenza A infection R/O Sammie infection of sacral area as well Plan continue Rocephin for the Strep viridans bacteremia (would continue 4-6 weeks of Rocephin with weekly ESR, CRP, CBC, CMP) day 31 of 42 days; unable to do TAHIR since patient unable to give consent and patient does not have family to give consent CRP still elevated - would recommend to continue until 6 weeks of therapy will continue to follow clinically
[2018-01-04] MEDS: Insulin Detemir 100 units/ml Vial (Levemir) SC SCH (21:23)
[2018-01-05] MEDS: Pantoprazole 40 mg EC Tab PO SCH (05:35)
[2018-01-05] MEDS: Insulin Regular 1 UNITS/0.01 ML ML SC SCH ×3 (07:31→17:06)
[2018-01-05] MEDS: Insulin Lispro (humaLOG) LOW Coverage SC SCH ×4 (08:18→22:18)
[2018-01-05] MEDS: Multivitamin With Minerals Tab PO SCH (08:34)
[2018-01-05] MEDS: Clotrimazole 1% Top Soln(10 ml) TOP SCH ×2 (09:32→17:07)
[2018-01-05] MEDS: Enoxaparin 40 mg Syringe SC SCH (09:33)
[2018-01-05] MEDS: cefTRIAXone 2 GM IN NS 2 GM/100 ML BAG IVPB SCH (09:34)
--- NOTE | 2018-01-05 12:31 | CP.PCM.PN ---
<Nikita Hurley - Last Filed: 01/05/18 12:36> Subjective - Date & Time of Evaluation Date of Evaluation: 01/05/18 Time of Evaluation: 12:32 - Subjective Subjective: Nikita Hurley DO, PGY-1: Hospitalist Service Patient seen and examined at bedside. Patient denies any chest pain, dyspnea, or shortness of breath. Nurse reports no events overnight. Nurse aid reports pateint was cursing at her and others when they would assist him. Objective - Vital Signs/Intake and Output Vital Signs (last 24 hours): Temp Pulse Resp BP Pulse Ox 97 F L 88 20 118/76 94 L 01/05/18 08:31 01/05/18 09:35 01/05/18 08:31 01/05/18 09:35 01/05/18 08:31 Intake and Output: 01/05/18 01/05/18 06:59 18:59 Intake Total 900 120 Balance 900 120 - Medications Medications: Current Medications Amlodipine Besylate (Norvasc) 10 mg PO DAILY [facility] Last Admin: 01/05/18 09:33 Dose: 10 mg Aspirin (Ecotrin) 81 mg PO DAILY [facility] Last Admin: 01/05/18 09:31 Dose: 81 mg Atorvastatin Calcium (Lipitor) 20 mg PO DIN [facility] Last Admin: 01/04/18 17:03 Dose: 20 mg Clotrimazole (Lotrimin Af 1%) 0 ml TOP BID [facility] Last Admin: 01/05/18 09:32 Dose: 1 applic Enoxaparin Sodium (Lovenox) 40 mg SC DAILY [facility] PRN Reason: Protocol Last Admin: 01/05/18 09:33 Dose: 40 mg Folic Acid (Folic Acid) 1 mg PO DAILY [facility] Last Admin: 01/05/18 09:31 Dose: 1 mg Hydralazine HCl (Apresoline) 10 mg IVP Q6 PRN PRN Reason: For SBP > 150 Last Admin: 12/13/17 08:32 Dose: 10 mg Ceftriaxone Sodium (Rocephin 2 Gm Ivpb) 2 gm in 100 mls @ 100 mls/hr IVPB DAILY [facility] PRN Reason: Protocol Last Admin: 01/05/18 09:34 Dose: 100 mls/hr Insulin Detemir (Levemir) 10 unit SC [facility] Last Admin: 01/04/18 21:23 Dose: 10 unit Insulin Human Lispro (Humalog Low) 0 units SC ACHS [facility] PRN Reason: Protocol Last Admin: 01/05/18 12:22 Dose: 1 units Insulin Human Regular (Humulin R) 3 units SC AC [facility] Last Admin: 01/05/18 12:21 Dose: 3 units Lisinopril (Zestril) 10 mg PO DAILY [facility] Last Admin: 01/05/18 09:35 Dose: 10 mg Lorazepam (Ativan) 0.5 mg PO BID [facility] PRN Reason: Protocol Last Admin: 01/05/18 09:31 Dose: 0.5 mg Multivitamins/Minerals (Therapeutic-M Tab) 1 tab PO 0800 [facility] Last Admin: 01/05/18 08:34 Dose: 1 tab Pantoprazole Sodium (Protonix Ec Tab) 40 mg PO 0600 [facility] Last Admin: 01/05/18 05:35 Dose: 40 mg Thiamine HCl (Vitamin B1 Tab) 100 mg PO DAILY [facility] Last Admin: 01/05/18 09:34 Dose: 100 mg Zinc Sulfate (Zinc Sulfate 220 Mg Cap) 220 mg PO DAILY [facility] Last Admin: 01/05/18 09:35 Dose: 220 mg - Labs Labs: 01/03/18 05:20 01/03/18 05:20 PT 12.5 SECONDS (9.4-12.5) 12/09/17 10:00 INR 1.09 (0.93-1.08) H 12/09/17 10:00 APTT 28.3 Seconds (25.1-36.5) 11/30/17 05:30 - Constitutional Appears: Well, Non-toxic - Head Exam Head Exam: ATRAUMATIC, NORMOCEPHALIC - ENT Exam ENT Exam: Mucous Membranes Moist, Normal Oropharynx - Neck Exam Neck Exam: Normal Inspection - Respiratory Exam Respiratory Exam: NORMAL BREATHING PATTERN. absent: Accessory Muscle Use, Clear to Ausculation Bilateral - Cardiovascular Exam Cardiovascular Exam: RRR, +S1, +S2 - GI/Abdominal Exam GI & Abdominal Exam: Soft, Normal Bowel Sounds - Extremities Exam Extremities Exam: Normal Inspection - Back Exam Back Exam: NORMAL INSPECTION. absent: CVA tenderness (L), CVA tenderness (R) - Neurological Exam Neurological Exam: Awake - Psychiatric Exam Psychiatric exam: Flat Affect - Skin Skin Exam: Dry, Intact, Normal Color, Warm Assessment and Plan - Assessment and Plan (Free Text) Assessment: 57 year old male with unknown past medical history who was brought in via EMS for AMS covered in feces in his apartment. 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 He is on IV ceftriaxone for his bacteremia and is pending Transesophageal Echocardiogram and colonoscopy to rule out endocarditis and colon cancer, respectively. Important to note, patient is unable to give consent for TAHIR and colonoscopy secondary to being not of decision-making capacity. Patient is day 35 of 42 of antibiotic treatment. Plan: 1) AMS - Baseline unknown,patient is awake but not oriented to person, place, or time; answer questions inappropriately. - Executive function is impaired - Continue with delirium precautions 2) Bacteremia with Strep Viridans/Mitis and Coag Neg Staph Bacteremia -Continue IV Ceftriaxone therapy, currently day 35 ; course extended secondary to increased ESR/CRP -Repeat weekly ESR/CRP -Repeat blood cultures negative -TAHIR to be done when consent can be obtained -Psychiatry, Cardiology, Neurology and ID consulted, all recommendations appreciated -PT/OT recommending JOSIAH upon discharge 3) Colonic Neoplasm -Flexible sigmoidoscopy/Colonoscopy to be done when consent can be obtained -GI consulted, all recommendations appreciated 4) Multifocal Pneumonia in the setting of recent Influenzae A infection -Continue with Ceftriaxone. 5) Ischemic Stroke -Continue ASA 81mg and Lipitor 20mg 6) History of Alcohol Abuse/Withdrawal - PO Folate,Thiamine, and Multivitamin supplements - Fall, Seizure, and Aspiration precautions 6) DM II -Blood glucose moderately controlled -Levemir 10 units HS -Added regular insulin 3u AC -Continue insulin lispart sliding scale low for additional coverage -Carb Consistent Diet 7) HTN - Continue Lisinopril 10mg - Norvasc 10mg PO daily 8) Stage 2 Sacral Decubitus Ulcers with associated Cellulitis - Continue Lotrimin AF 1% ointment - Continue wound care and Q2 repositioning - OOB to chair; patient is refusing. 9) Affective disorder, unspecified - Geodon PRN - Seroquel HS - Ativan 0.5 mg BID YOLI - Psychiatry consulted, recommendations noted GI PPx: Protonix DVT Ppx: Lovenox Patient discussed and reviewed with attending Dr. Schumacher Plan: Patient is awake, but no alert or oriented and does not have decision making capacity. <EndyAlvincarolyne - Last Filed: 01/05/18 17:33> Objective - Vital Signs/Intake and Output Vital Signs (last 24 hours): Temp Pulse Resp BP Pulse Ox 98 F 93 H 18 88/54 L 95 01/05/18 16:00 01/05/18 16:00 01/05/18 16:00 01/05/18 16:00 01/05/18 16:00 Intake and Output: 01/05/18 01/05/18 06:59 18:59 Intake Total 900 120 Balance 900 120 - Medications Medications: Current Medications Amlodipine Besylate (Norvasc) 10 mg PO DAILY [facility] Last Admin: 01/05/18 09:33 Dose: 10 mg Aspirin (Ecotrin) 81 mg PO DAILY [facility] Last Admin: 01/05/18 09:31 Dose: 81 mg Atorvastatin Calcium (Lipitor) 20 mg PO DIN [facility] Last Admin: 01/05/18 17:07 Dose: 20 mg Clotrimazole (Lotrimin Af 1%) 0 ml TOP BID [facility] Last Admin: 01/05/18 17:07 Dose: 1 applic Enoxaparin Sodium (Lovenox) 40 mg SC DAILY [facility] PRN Reason: Protocol Last Admin: 01/05/18 09:33 Dose: 40 mg Folic Acid (Folic Acid) 1 mg PO DAILY [facility] Last Admin: 01/05/18 09:31 Dose: 1 mg Hydralazine HCl (Apresoline) 10 mg IVP Q6 PRN PRN Reason: For SBP > 150 Last Admin: 12/13/17 08:32 Dose: 10 mg Ceftriaxone Sodium (Rocephin 2 Gm Ivpb) 2 gm in 100 mls @ 100 mls/hr IVPB DAILY [facility] PRN Reason: Protocol Last Admin: 01/05/18 09:34 Dose: 100 mls/hr Insulin Detemir (Levemir) 10 unit SC HS [facility] Last Admin: 01/04/18 21:23 Dose: 10 unit Insulin Human Lispro (Humalog Low) 0 units SC ACHS [facility] PRN Reason: Protocol Last Admin: 01/05/18 17:07 Dose: 1 units Insulin Human Regular (Humulin R) 3 units SC AC [facility] Last Admin: 01/05/18 17:06 Dose: 3 units Lisinopril (Zestril) 10 mg PO DAILY [facility] Last Admin: 01/05/18 09:35 Dose: 10 mg Lorazepam (Ativan) 0.5 mg PO BID [facility] PRN Reason: Protocol Last Admin: 01/05/18 17:06 Dose: 0.5 mg Multivitamins/Minerals (Therapeutic-M Tab) 1 tab PO 0800 [facility] Last Admin: 01/05/18 08:34 Dose: 1 tab Pantoprazole Sodium (Protonix Ec Tab) 40 mg PO 0600 [facility] Last Admin: 01/05/18 05:35 Dose: 40 mg Thiamine HCl (Vitamin B1 Tab) 100 mg PO DAILY [facility] Last Admin: 01/05/18 09:34 Dose: 100 mg Zinc Sulfate (Zinc Sulfate 220 Mg Cap) 220 mg PO DAILY [facility] Last Admin: 01/05/18 09:35 Dose: 220 mg - Labs Labs: 01/03/18 05:20 01/03/18 05:20 PT 12.5 SECONDS (9.4-12.5) 12/09/17 10:00 INR 1.09 (0.93-1.08) H 12/09/17 10:00 APTT 28.3 Seconds (25.1-36.5) 11/30/17 05:30 Attending/Attestation - Attestation I have personally seen and examined this patient.: Yes I have fully participated in the care of the patient.: Yes I have reviewed all pertinent clinical information, including history, physical exam and plan: Yes Notes (Text): 01/05/18 17:30 Medical record note made by the resident after discussion with my direction and input after the patient was personally seen and examined by me. I have reviewed the chart and agree that the record accurately reflects by personal performance of the history, physical exam, data review, and medical decision-making, in the course for the patient. I have also personally directed the plan of care. Patient is stable at his base line.He is awake but not oriented, does not has decision making capacity, no family is available.Case management is working on guardianship.We will continue current management. Prognosis is guarded.
[2018-01-05] MEDS: Insulin Detemir 100 units/ml Vial (Levemir) SC SCH (22:19)
[2018-01-06] MEDS: Pantoprazole 40 mg EC Tab PO SCH (05:26)
[2018-01-06] MEDS: Insulin Lispro (humaLOG) LOW Coverage SC SCH ×4 (09:00→23:19)
[2018-01-06] MEDS: Insulin Regular 1 UNITS/0.01 ML ML SC SCH ×3 (09:09→17:09)
[2018-01-06] MEDS: Enoxaparin 40 mg Syringe SC SCH (09:10)
[2018-01-06] MEDS: cefTRIAXone 2 GM IN NS 2 GM/100 ML BAG IVPB SCH (09:11)
[2018-01-06] MEDS: Multivitamin With Minerals Tab PO SCH (09:13)
[2018-01-06] MEDS: Clotrimazole 1% Top Soln(10 ml) TOP SCH ×2 (09:30→17:11)
--- NOTE | 2018-01-06 15:20 | CP.PCM.PN ---
<Nikita Hurley - Last Filed: 01/06/18 15:54> Subjective - Date & Time of Evaluation Date of Evaluation: 01/06/18 Time of Evaluation: 07:00 - Subjective Subjective: Patient seen and examined at bedside. No complaints. Nurse reports no events overnight. Patient outright refused OOB to chair. Objective - Vital Signs/Intake and Output Vital Signs (last 24 hours): Temp Pulse Resp BP Pulse Ox 97.3 F L 87 20 124/88 97 01/06/18 09:55 01/06/18 09:55 01/06/18 09:55 01/06/18 09:55 01/06/18 09:55 Intake and Output: 01/06/18 01/06/18 06:59 18:59 Intake Total 1120 700 Output Total 0 1 Balance 1120 699 - Medications Medications: Current Medications Amlodipine Besylate (Norvasc) 10 mg PO DAILY [facility] Last Admin: 01/06/18 09:10 Dose: 10 mg Aspirin (Ecotrin) 81 mg PO DAILY [facility] Last Admin: 01/06/18 09:08 Dose: 81 mg Atorvastatin Calcium (Lipitor) 20 mg PO DIN [facility] Last Admin: 01/05/18 17:07 Dose: 20 mg Clotrimazole (Lotrimin Af 1%) 0 ml TOP BID [facility] Last Admin: 01/05/18 17:07 Dose: 1 applic Enoxaparin Sodium (Lovenox) 40 mg SC DAILY [facility] PRN Reason: Protocol Last Admin: 01/06/18 09:10 Dose: 40 mg Folic Acid (Folic Acid) 1 mg PO DAILY [facility] Last Admin: 01/06/18 09:08 Dose: 1 mg Hydralazine HCl (Apresoline) 10 mg IVP Q6 PRN PRN Reason: For SBP > 150 Last Admin: 12/13/17 08:32 Dose: 10 mg Ceftriaxone Sodium (Rocephin 2 Gm Ivpb) 2 gm in 100 mls @ 100 mls/hr IVPB DAILY [facility] PRN Reason: Protocol Last Admin: 01/06/18 09:11 Dose: 100 mls/hr Insulin Detemir (Levemir) 10 unit SC [facility] Last Admin: 01/05/18 22:19 Dose: Not Given Insulin Human Lispro (Humalog Low) 0 units SC [facility] PRN Reason: Protocol Last Admin: 01/06/18 09:00 Dose: Not Given Insulin Human Regular (Humulin R) 3 units SC AC [facility] Last Admin: 01/06/18 09:09 Dose: 3 units Lisinopril (Zestril) 10 mg PO DAILY [facility] Last Admin: 01/06/18 09:16 Dose: 10 mg Lorazepam (Ativan) 0.5 mg PO BID PRN; Protocol PRN Reason: anxiety and restlessness Multivitamins/Minerals (Therapeutic-M Tab) 1 tab PO 0800 [facility] Last Admin: 01/06/18 09:13 Dose: 1 tab Pantoprazole Sodium (Protonix Ec Tab) 40 mg PO 0600 [facility] Last Admin: 01/06/18 05:26 Dose: 40 mg Thiamine HCl (Vitamin B1 Tab) 100 mg PO DAILY [facility] Last Admin: 01/06/18 09:16 Dose: 100 mg Zinc Sulfate (Zinc Sulfate 220 Mg Cap) 220 mg PO DAILY [facility] Last Admin: 01/06/18 09:17 Dose: 220 mg - Labs Labs: 01/03/18 05:20 01/03/18 05:20 PT 12.5 SECONDS (9.4-12.5) 12/09/17 10:00 INR 1.09 (0.93-1.08) H 12/09/17 10:00 APTT 28.3 Seconds (25.1-36.5) 11/30/17 05:30 - Constitutional Appears: Non-toxic, Unkempt - Head Exam Head Exam: ATRAUMATIC, NORMOCEPHALIC - Eye Exam Eye Exam: EOMI, Normal appearance - ENT Exam ENT Exam: Mucous Membranes Moist, Normal Oropharynx - Neck Exam Neck Exam: Normal Inspection - Respiratory Exam Respiratory Exam: Clear to Ausculation Bilateral, NORMAL BREATHING PATTERN. absent: Accessory Muscle Use - Cardiovascular Exam Cardiovascular Exam: RRR, +S1, +S2 - GI/Abdominal Exam GI & Abdominal Exam: Soft, Normal Bowel Sounds. absent: Guarding - Extremities Exam Extremities Exam: Normal Inspection. absent: Calf Tenderness - Back Exam Back Exam: NORMAL INSPECTION. absent: CVA tenderness (L), CVA tenderness (R) - Neurological Exam Neurological Exam: Alert, Awake Additional comments: patient is not oriented to person, place, or time. - Psychiatric Exam Psychiatric exam: Flat Affect - Skin Skin Exam: Dry, Intact, Normal Color, Warm Assessment and Plan - Assessment and Plan (Free Text) Assessment: 57 year old male with unknown past medical history who was brought in via EMS for AMS covered in feces in his apartment. 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 He is on IV ceftriaxone for his bacteremia and is pending Transesophageal Echocardiogram and colonoscopy to rule out endocarditis and colon cancer, respectively. Important to note, patient is unable to give consent for TAHIR and colonoscopy secondary to being not of decision-making capacity. Patient is day 36 of 42 of antibiotic treatment. Plan: 1) Demented: - Executive function is impaired - Continue with delirium precautions 2) Bacteremia with Strep Viridans/Mitis and Coag Neg Staph Bacteremia -Continue IV Ceftriaxone therapy, currently day 36 ; course extended secondary to increased ESR/CRP -Repeat weekly ESR/CRP -Repeat blood cultures negative -TAHIR to be done when consent can be obtained -Psychiatry, Cardiology, Neurology and ID consulted, all recommendations appreciated -PT/OT recommending JOSIAH upon discharge 3) Colonic Neoplasm -Flexible sigmoidoscopy/Colonoscopy to be done when consent can be obtained -GI consulted, all recommendations appreciated 4) Multifocal Pneumonia in the setting of recent Influenzae A infection -Continue with Ceftriaxone. 5) Ischemic Stroke -Continue ASA 81mg and Lipitor 20mg 6) History of Alcohol Abuse/Withdrawal - PO Folate,Thiamine, and Multivitamin supplements - Fall, Seizure, and Aspiration precautions 6) DM II -Blood glucose moderately controlled -Levemir 10 units HS -Added regular insulin 3u AC -Continue insulin lispart sliding scale low for additional coverage -Carb Consistent Diet 7) HTN - Continue Lisinopril 10mg - Norvasc 10mg PO daily 8) Sacral decubitus: resolved - Continue Q2h repositioning as patient tolerates - OOB to chair; patient is refusing. 9) Affective disorder, unspecified - Geodon PRN - Seroquel HS - Ativan 0.5 mg BID YOLI - Psychiatry consulted, recommendations noted 10) GI/DVT prophylaxis - Protonix 40 daily - Lovenox 40 SC Disposition: The patient lack decision making capacity. He does not has understanding of his diagnosis, medical treatment, potential benefit and risk associated with and without treatment. The patient has multiple medical condition, getting treatment for possible endocarditis, gram positive bacteremia and colonic lesion could be malignant and CVA. Patient has dementia likely due to alcohol abuse. Patient does not has any behavior problem. Basically at this time, patient does not has capacity to make decision for himself. He need manager terminal care and supervision at this time, need help in medication, feeding and change of position. Patient discussed and reviewed with attending Dr. Schumacher. <Deanna Schumacher - Last Filed: 01/06/18 16:11> Objective - Vital Signs/Intake and Output Vital Signs (last 24 hours): Temp Pulse Resp BP Pulse Ox 97.3 F L 87 20 124/88 97 01/06/18 09:55 01/06/18 09:55 01/06/18 09:55 01/06/18 09:55 01/06/18 09:55 Intake and Output: 01/06/18 01/06/18 06:59 18:59 Intake Total 1120 700 Output Total 0 1 Balance 1120 699 - Medications Medications: Current Medications Amlodipine Besylate (Norvasc) 10 mg PO DAILY [facility] Last Admin: 01/06/18 09:10 Dose: 10 mg Aspirin (Ecotrin) 81 mg PO DAILY [facility] Last Admin: 01/06/18 09:08 Dose: 81 mg Atorvastatin Calcium (Lipitor) 20 mg PO DIN [facility] Last Admin: 01/05/18 17:07 Dose: 20 mg Clotrimazole (Lotrimin Af 1%) 0 ml TOP BID [facility] Last Admin: 01/05/18 17:07 Dose: 1 applic Enoxaparin Sodium (Lovenox) 40 mg SC DAILY [facility] PRN Reason: Protocol Last Admin: 01/06/18 09:10 Dose: 40 mg Folic Acid (Folic Acid) 1 mg PO DAILY [facility] Last Admin: 01/06/18 09:08 Dose: 1 mg Hydralazine HCl (Apresoline) 10 mg IVP Q6 PRN PRN Reason: For SBP > 150 Last Admin: 12/13/17 08:32 Dose: 10 mg Ceftriaxone Sodium (Rocephin 2 Gm Ivpb) 2 gm in 100 mls @ 100 mls/hr IVPB DAILY [facility] PRN Reason: Protocol Last Admin: 01/06/18 09:11 Dose: 100 mls/hr Insulin Detemir (Levemir) 10 unit SC [facility] Last Admin: 01/05/18 22:19 Dose: Not Given Insulin Human Lispro (Humalog Low) 0 units SC ACHS [facility] PRN Reason: Protocol Last Admin: 01/06/18 09:00 Dose: Not Given Insulin Human Regular (Humulin R) 3 units SC AC [facility] Last Admin: 01/06/18 09:09 Dose: 3 units Lisinopril (Zestril) 10 mg PO DAILY [facility] Last Admin: 01/06/18 09:16 Dose: 10 mg Lorazepam (Ativan) 0.5 mg PO BID PRN; Protocol PRN Reason: anxiety and restlessness Multivitamins/Minerals (Therapeutic-M Tab) 1 tab PO 0800 [facility] Last Admin: 01/06/18 09:13 Dose: 1 tab Pantoprazole Sodium (Protonix Ec Tab) 40 mg PO 0600 [facility] Last Admin: 01/06/18 05:26 Dose: 40 mg Thiamine HCl (Vitamin B1 Tab) 100 mg PO DAILY [facility] Last Admin: 01/06/18 09:16 Dose: 100 mg Zinc Sulfate (Zinc Sulfate 220 Mg Cap) 220 mg PO DAILY [facility] Last Admin: 01/06/18 09:17 Dose: 220 mg - Labs Labs: 01/03/18 05:20 01/03/18 05:20 PT 12.5 SECONDS (9.4-12.5) 12/09/17 10:00 INR 1.09 (0.93-1.08) H 12/09/17 10:00 APTT 28.3 Seconds (25.1-36.5) 11/30/17 05:30 Attending/Attestation - Attestation I have personally seen and examined this patient.: Yes I have fully participated in the care of the patient.: Yes I have reviewed all pertinent clinical information, including history, physical exam and plan: Yes Notes (Text): 01/06/18 16:11 Medical record note made by the resident after discussion with my direction and input after the patient was personally seen and examined by me. I have reviewed the chart and agree that the record accurately reflects by personal performance of the history, physical exam, data review, and medical decision-making, in the course for the patient. I have also personally directed the plan of care.
[2018-01-06] MEDS: Insulin Detemir 100 units/ml Vial (Levemir) SC SCH (23:19)
[2018-01-07] MEDS: Pantoprazole 40 mg EC Tab PO SCH (06:53)
[2018-01-07] MEDS: Insulin Lispro (humaLOG) LOW Coverage SC SCH ×4 (08:33→23:49)
[2018-01-07] MEDS: Insulin Regular 1 UNITS/0.01 ML ML SC SCH ×3 (08:36→17:20)
[2018-01-07] MEDS: Enoxaparin 40 mg Syringe SC SCH (10:49)
[2018-01-07] MEDS: cefTRIAXone 2 GM IN NS 2 GM/100 ML BAG IVPB SCH (10:49)
[2018-01-07] MEDS: Multivitamin With Minerals Tab PO SCH (10:50)
[2018-01-07] MEDS: Clotrimazole 1% Top Soln(10 ml) TOP SCH (10:50)
--- NOTE | 2018-01-07 13:37 | CP.PCM.PN ---
<XaviEyallona - Last Filed: 01/07/18 15:43> Subjective - Date & Time of Evaluation Date of Evaluation: 01/07/18 Time of Evaluation: 07:50 - Subjective Subjective: Patient seen and examined at bedside. No complaints. Nurse reports no events overnight. Patient is OOB to chair. Objective - Vital Signs/Intake and Output Vital Signs (last 24 hours): Temp Pulse Resp BP Pulse Ox 97.5 F L 94 H 20 135/89 95 01/07/18 06:00 01/07/18 10:47 01/07/18 06:00 01/07/18 10:49 01/07/18 06:00 Intake and Output: 01/07/18 01/07/18 06:59 18:59 Intake Total 1140 Balance 1140 - Medications Medications: Current Medications Amlodipine Besylate (Norvasc) 10 mg PO DAILY REPLACED BY [facility] Last Admin: 01/07/18 10:49 Dose: 10 mg Aspirin (Ecotrin) 81 mg PO DAILY REPLACED BY [facility] Last Admin: 01/07/18 10:47 Dose: 81 mg Atorvastatin Calcium (Lipitor) 20 mg PO DIN REPLACED BY [facility] Last Admin: 01/06/18 17:09 Dose: 20 mg Clotrimazole (Lotrimin Af 1%) 0 ml TOP BID REPLACED BY [facility] Last Admin: 01/07/18 10:50 Dose: 1 applic Enoxaparin Sodium (Lovenox) 40 mg SC DAILY REPLACED BY [facility] PRN Reason: Protocol Last Admin: 01/07/18 10:49 Dose: 40 mg Folic Acid (Folic Acid) 1 mg PO DAILY REPLACED BY [facility] Last Admin: 01/07/18 10:49 Dose: 1 mg Hydralazine HCl (Apresoline) 10 mg IVP Q6 PRN PRN Reason: For SBP > 150 Last Admin: 12/13/17 08:32 Dose: 10 mg Ceftriaxone Sodium (Rocephin 2 Gm Ivpb) 2 gm in 100 mls @ 100 mls/hr IVPB DAILY REPLACED BY [facility] PRN Reason: Protocol Stop: 01/16/18 10:01 Last Admin: 01/07/18 10:49 Dose: 100 mls/hr Insulin Detemir (Levemir) 10 unit SC [facility] Last Admin: 01/06/18 23:19 Dose: 10 unit Insulin Human Lispro (Humalog Low) 0 units SC [facility] REPLACED BY [facility] PRN Reason: Protocol Last Admin: 01/07/18 12:22 Dose: 2 units Insulin Human Regular (Humulin R) 3 units SC AC REPLACED BY [facility] Last Admin: 01/07/18 12:23 Dose: 3 units Lisinopril (Zestril) 10 mg PO DAILY REPLACED BY [facility] Last Admin: 01/07/18 10:47 Dose: 10 mg Lorazepam (Ativan) 0.5 mg PO BID PRN; Protocol PRN Reason: anxiety and restlessness Multivitamins/Minerals (Therapeutic-M Tab) 1 tab PO 0800 REPLACED BY [facility] Last Admin: 01/07/18 10:50 Dose: 1 tab Pantoprazole Sodium (Protonix Ec Tab) 40 mg PO 0600 REPLACED BY [facility] Last Admin: 01/07/18 06:53 Dose: 40 mg Thiamine HCl (Vitamin B1 Tab) 100 mg PO DAILY REPLACED BY [facility] Last Admin: 01/07/18 10:47 Dose: 100 mg Zinc Sulfate (Zinc Sulfate 220 Mg Cap) 220 mg PO DAILY REPLACED BY [facility] Last Admin: 01/07/18 10:47 Dose: 220 mg - Labs Labs: 01/03/18 05:20 01/03/18 05:20 PT 12.5 SECONDS (9.4-12.5) 12/09/17 10:00 INR 1.09 (0.93-1.08) H 12/09/17 10:00 APTT 28.3 Seconds (25.1-36.5) 11/30/17 05:30 - Constitutional Appears: Well, Non-toxic - Head Exam Head Exam: ATRAUMATIC, NORMOCEPHALIC - Eye Exam Eye Exam: EOMI, Normal appearance - ENT Exam ENT Exam: Mucous Membranes Moist, Normal Oropharynx - Respiratory Exam Respiratory Exam: Clear to Ausculation Bilateral, NORMAL BREATHING PATTERN. absent: Accessory Muscle Use - Cardiovascular Exam Cardiovascular Exam: RRR, +S1, +S2 - GI/Abdominal Exam GI & Abdominal Exam: Soft, Normal Bowel Sounds - Extremities Exam Extremities Exam: Normal Inspection - Back Exam Back Exam: NORMAL INSPECTION. absent: CVA tenderness (L), CVA tenderness (R) - Neurological Exam Neurological Exam: Alert, Awake Additional comments: not oriented to person, place or time - Psychiatric Exam Psychiatric exam: Depressed, Flat Affect - Skin Skin Exam: Dry, Intact, Normal Color, Warm Assessment and Plan - Assessment and Plan (Free Text) Assessment: 57 year old male with unknown past medical history who was brought in via EMS for AMS covered in feces in his apartment. 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 He is on IV ceftriaxone for his bacteremia and is pending Transesophageal Echocardiogram and colonoscopy to rule out endocarditis and colon cancer, respectively. Important to note, patient is unable to give consent for TAHIR and colonoscopy secondary to being not of decision-making capacity. Patient is day 37.5 of of antibiotic treatment. Plan: 1) Demented: - Executive function is impaired - Continue with delirium precautions 2) Bacteremia with Strep Viridans/Mitis and Coag Neg Staph Bacteremia -Continue IV Ceftriaxone therapy, currently day 37.; course extended secondary to increased ESR/CRP -Repeat weekly ESR/CRP -Repeat blood cultures negative -TAHIR to be done when consent can be obtained -Psychiatry, Cardiology, Neurology and ID consulted, all recommendations appreciated -PT/OT recommending JOSIAH upon discharge 3) Colonic Neoplasm -Flexible sigmoidoscopy/Colonoscopy to be done when consent can be obtained -GI consulted, all recommendations appreciated 4) Multifocal Pneumonia in the setting of recent Influenzae A infection -Continue with Ceftriaxone. 5) Ischemic Stroke -Continue ASA 81mg and Lipitor 20mg 6) History of Alcohol Abuse/Withdrawal - PO Folate,Thiamine, and Multivitamin supplements - Fall, Seizure, and Aspiration precautions 6) DM II -Blood glucose moderately controlled -Levemir 10 units HS -Added regular insulin 3u AC -Continue insulin lispart sliding scale low for additional coverage -Carb Consistent Diet 7) HTN - Continue Lisinopril 10mg - Norvasc 10mg PO daily 8) Sacral decubitus: resolved - Continue Q2h repositioning as patient tolerates - OOB to chair; patient is refusing. 9) Affective disorder, unspecified - Geodon PRN - Seroquel HS - Ativan 0.5 mg BID REPLACED BY [facility] - Psychiatry consulted, recommendations noted 10) GI/DVT prophylaxis - Protonix 40 daily - Lovenox 40 SC Disposition: The patient lack decision making capacity. He does not has understanding of his diagnosis, medical treatment, potential benefit and risk associated with and without treatment. The patient has multiple medical condition, getting treatment for possible endocarditis, gram positive bacteremia and colonic lesion could be malignant and CVA. Patient has dementia likely due to alcohol abuse. Patient does not has any behavior problem. Basically at this time, patient does not has capacity to make decision for himself. He need jail care and supervision at this time, need help in medication, feeding and change of position. Patient discussed and reviewed with attending Dr. Schumacher. <Deanna Schumacher - Last Filed: 01/08/18 11:33> Objective - Vital Signs/Intake and Output Vital Signs (last 24 hours): Temp Pulse Resp BP Pulse Ox 97.9 F 86 20 132/79 97 01/08/18 08:31 01/08/18 08:31 01/08/18 08:31 01/08/18 10:39 01/08/18 08:31 Intake and Output: 01/08/18 01/08/18 06:59 18:59 Intake Total 780 0 Balance 780 0 - Medications Medications: Current Medications Amlodipine Besylate (Norvasc) 10 mg PO DAILY REPLACED BY [facility] Last Admin: 01/08/18 10:39 Dose: 10 mg Aspirin (Ecotrin) 81 mg PO DAILY REPLACED BY [facility] Last Admin: 01/08/18 10:39 Dose: 81 mg Atorvastatin Calcium (Lipitor) 20 mg PO DIN REPLACED BY [facility] Last Admin: 01/07/18 17:21 Dose: 20 mg Clotrimazole (Lotrimin Af 1%) 0 ml TOP BID REPLACED BY [facility] Last Admin: 01/07/18 10:50 Dose: 1 applic Enoxaparin Sodium (Lovenox) 40 mg SC DAILY REPLACED BY [facility] PRN Reason: Protocol Last Admin: 01/08/18 10:40 Dose: 40 mg Folic Acid (Folic Acid) 1 mg PO DAILY REPLACED BY [facility] Last Admin: 01/08/18 10:39 Dose: 1 mg Hydralazine HCl (Apresoline) 10 mg IVP Q6 PRN PRN Reason: For SBP > 150 Last Admin: 12/13/17 08:32 Dose: 10 mg Ceftriaxone Sodium (Rocephin 2 Gm Ivpb) 2 gm in 100 mls @ 100 mls/hr IVPB DAILY REPLACED BY [facility] PRN Reason: Protocol Stop: 01/16/18 10:01 Last Admin: 01/08/18 10:40 Dose: 100 mls/hr Insulin Detemir (Levemir) 10 unit SC [facility] Last Admin: 01/07/18 22:40 Dose: 10 unit Insulin Human Lispro (Humalog Low) 0 units SC [facility] REPLACED BY [facility] PRN Reason: Protocol Last Admin: 01/08/18 08:22 Dose: 1 units Insulin Human Regular (Humulin R) 3 units SC AC REPLACED BY [facility] Last Admin: 01/08/18 08:21 Dose: 3 units Lisinopril (Zestril) 10 mg PO DAILY REPLACED BY [facility] Last Admin: 01/08/18 10:39 Dose: 10 mg Lorazepam (Ativan) 0.5 mg PO BID PRN; Protocol PRN Reason: anxiety and restlessness Multivitamins/Minerals (Therapeutic-M Tab) 1 tab PO 0800 REPLACED BY [facility] Last Admin: 01/08/18 10:39 Dose: 1 tab Pantoprazole Sodium (Protonix Ec Tab) 40 mg PO 0600 REPLACED BY [facility] Last Admin: 01/08/18 05:43 Dose: Not Given Quetiapine Fumarate (Seroquel) 12.5 mg PO HS PRN; Protocol PRN Reason: Agitation Last Admin: 01/07/18 20:57 Dose: 12.5 mg Thiamine HCl (Vitamin B1 Tab) 100 mg PO DAILY REPLACED BY [facility] Last Admin: 01/08/18 10:39 Dose: 100 mg Zinc Sulfate (Zinc Sulfate 220 Mg Cap) 220 mg PO DAILY REPLACED BY [facility] Last Admin: 01/08/18 10:39 Dose: 220 mg - Labs Labs: 01/03/18 05:20 01/03/18 05:20 PT 12.5 SECONDS (9.4-12.5) 12/09/17 10:00 INR 1.09 (0.93-1.08) H 12/09/17 10:00 APTT 28.3 Seconds (25.1-36.5) 11/30/17 05:30 Attending/Attestation - Attestation I have personally seen and examined this patient.: Yes I have fully participated in the care of the patient.: Yes I have reviewed all pertinent clinical information, including history, physical exam and plan: Yes Notes (Text): 01/08/18 11:33 Medical record note made by the resident after discussion with my direction and input after the patient was personally seen and examined by me. I have reviewed the chart and agree that the record accurately reflects by personal performance of the history, physical exam, data review, and medical decision-making, in the course for the patient. I have also personally directed the plan of care.
--- NOTE | 2018-01-07 14:44 | CP.PCM.PN ---
Subjective - Date & Time of Evaluation Date of Evaluation: 01/07/18 Time of Evaluation: 10:55 - Subjective Subjective: Comfortable, no fevers, not in distress. Objective - Vital Signs/Intake and Output Vital Signs (last 24 hours): Temp Pulse Resp BP Pulse Ox 97.5 F L 94 H 20 133/89 95 01/07/18 06:00 01/07/18 06:00 01/07/18 06:00 01/07/18 06:00 01/07/18 06:00 Intake and Output: 01/07/18 01/07/18 06:59 18:59 Intake Total 1140 Balance 1140 - Medications Medications: Current Medications Amlodipine Besylate (Norvasc) 10 mg PO DAILY [facility] Last Admin: 01/06/18 09:10 Dose: 10 mg Aspirin (Ecotrin) 81 mg PO DAILY [facility] Last Admin: 01/06/18 09:08 Dose: 81 mg Atorvastatin Calcium (Lipitor) 20 mg PO DIN [facility] Last Admin: 01/06/18 17:09 Dose: 20 mg Clotrimazole (Lotrimin Af 1%) 0 ml TOP BID [facility] Last Admin: 01/06/18 17:11 Dose: 1 applic Enoxaparin Sodium (Lovenox) 40 mg SC DAILY [facility] PRN Reason: Protocol Last Admin: 01/06/18 09:10 Dose: 40 mg Folic Acid (Folic Acid) 1 mg PO DAILY [facility] Last Admin: 01/06/18 09:08 Dose: 1 mg Hydralazine HCl (Apresoline) 10 mg IVP Q6 PRN PRN Reason: For SBP > 150 Last Admin: 12/13/17 08:32 Dose: 10 mg Ceftriaxone Sodium (Rocephin 2 Gm Ivpb) 2 gm in 100 mls @ 100 mls/hr IVPB DAILY [facility] PRN Reason: Protocol Stop: 01/16/18 10:01 Insulin Detemir (Levemir) 10 unit SC HS [facility] Last Admin: 01/06/18 23:19 Dose: 10 unit Insulin Human Lispro (Humalog Low) 0 units SC ACHS [facility] PRN Reason: Protocol Last Admin: 01/07/18 08:33 Dose: Not Given Insulin Human Regular (Humulin R) 3 units SC AC [facility] Last Admin: 01/07/18 08:36 Dose: 3 units Lisinopril (Zestril) 10 mg PO DAILY [facility] Last Admin: 01/06/18 09:16 Dose: 10 mg Lorazepam (Ativan) 0.5 mg PO BID PRN; Protocol PRN Reason: anxiety and restlessness Multivitamins/Minerals (Therapeutic-M Tab) 1 tab PO 0800 [facility] Last Admin: 01/06/18 09:13 Dose: 1 tab Pantoprazole Sodium (Protonix Ec Tab) 40 mg PO 0600 [facility] Last Admin: 01/07/18 06:53 Dose: 40 mg Thiamine HCl (Vitamin B1 Tab) 100 mg PO DAILY [facility] Last Admin: 01/06/18 09:16 Dose: 100 mg Zinc Sulfate (Zinc Sulfate 220 Mg Cap) 220 mg PO DAILY [facility] Last Admin: 01/06/18 09:17 Dose: 220 mg - Labs Labs: 01/03/18 05:20 01/03/18 05:20 PT 12.5 SECONDS (9.4-12.5) 12/09/17 10:00 INR 1.09 (0.93-1.08) H 12/09/17 10:00 APTT 28.3 Seconds (25.1-36.5) 11/30/17 05:30 - Constitutional Appears: Non-toxic, Chronically Ill - Head Exam Head Exam: NORMAL INSPECTION - Neck Exam Neck Exam: absent: Meningismus - Respiratory Exam Respiratory Exam: Decreased Breath Sounds - Cardiovascular Exam Cardiovascular Exam: +S1, +S2 - GI/Abdominal Exam GI & Abdominal Exam: Soft. absent: Tenderness Assessment and Plan - Assessment and Plan (Free Text) Plan: Assessment sepsis due to strep viridans and CoNS bacteremia from right gluteal and back cellulitis S/P multifocal HCAP on top of Influenza A infection R/O Sammie infection of sacral area as well Plan continue Rocephin for the Strep viridans bacteremia (would continue 4-6 weeks of Rocephin with weekly ESR, CRP, CBC, CMP) day 38 of 42 days; unable to do TAHIR since patient unable to give consent and patient does not have family to give consent would recommend to continue until 6 weeks of therapy will continue to follow clinically
[2018-01-07] MEDS: Insulin Detemir 100 units/ml Vial (Levemir) SC SCH (22:40)
[2018-01-08] MEDS: Pantoprazole 40 mg EC Tab PO SCH ×2 (05:30→05:43)
[2018-01-08] MEDS: Insulin Regular 1 UNITS/0.01 ML ML SC SCH ×3 (08:21→16:35)
[2018-01-08] MEDS: Insulin Lispro (humaLOG) LOW Coverage SC SCH ×4 (08:22→22:30)
[2018-01-08] MEDS: Multivitamin With Minerals Tab PO SCH (10:39)
[2018-01-08] MEDS: Enoxaparin 40 mg Syringe SC SCH (10:40)
[2018-01-08] MEDS: cefTRIAXone 2 GM IN NS 2 GM/100 ML BAG IVPB SCH (10:40)
--- NOTE | 2018-01-08 11:55 | CP.PCM.PN ---
<Niikta Hurley - Last Filed: 01/08/18 19:20> Subjective - Date & Time of Evaluation Date of Evaluation: 01/08/18 Time of Evaluation: 07:15 - Subjective Subjective: Patient seen and examined at bedside. No complaints. Nurse reports no events overnight. Patient was OOB to chair yesterday. Objective - Vital Signs/Intake and Output Vital Signs (last 24 hours): Temp Pulse Resp BP Pulse Ox 97.9 F 86 20 132/79 97 01/08/18 08:31 01/08/18 08:31 01/08/18 08:31 01/08/18 10:39 01/08/18 08:31 Intake and Output: 01/08/18 01/08/18 06:59 18:59 Intake Total 780 0 Balance 780 0 - Medications Medications: Current Medications Amlodipine Besylate (Norvasc) 10 mg PO DAILY [facility] Last Admin: 01/08/18 10:39 Dose: 10 mg Aspirin (Ecotrin) 81 mg PO DAILY [facility] Last Admin: 01/08/18 10:39 Dose: 81 mg Atorvastatin Calcium (Lipitor) 20 mg PO DIN [facility] Last Admin: 01/07/18 17:21 Dose: 20 mg Clotrimazole (Lotrimin Af 1%) 0 ml TOP BID [facility] Last Admin: 01/07/18 10:50 Dose: 1 applic Enoxaparin Sodium (Lovenox) 40 mg SC DAILY [facility] PRN Reason: Protocol Last Admin: 01/08/18 10:40 Dose: 40 mg Folic Acid (Folic Acid) 1 mg PO DAILY [facility] Last Admin: 01/08/18 10:39 Dose: 1 mg Hydralazine HCl (Apresoline) 10 mg IVP Q6 PRN PRN Reason: For SBP > 150 Last Admin: 12/13/17 08:32 Dose: 10 mg Ceftriaxone Sodium (Rocephin 2 Gm Ivpb) 2 gm in 100 mls @ 100 mls/hr IVPB DAILY [facility] PRN Reason: Protocol Stop: 01/16/18 10:01 Last Admin: 01/08/18 10:40 Dose: 100 mls/hr Insulin Detemir (Levemir) 10 unit SC HS [facility] Last Admin: 01/07/18 22:40 Dose: 10 unit Insulin Human Lispro (Humalog Low) 0 units SC [facility] PRN Reason: Protocol Last Admin: 01/08/18 08:22 Dose: 1 units Insulin Human Regular (Humulin R) 3 units SC AC [facility] Last Admin: 01/08/18 08:21 Dose: 3 units Lisinopril (Zestril) 10 mg PO DAILY [facility] Last Admin: 01/08/18 10:39 Dose: 10 mg Lorazepam (Ativan) 0.5 mg PO BID PRN; Protocol PRN Reason: anxiety and restlessness Multivitamins/Minerals (Therapeutic-M Tab) 1 tab PO 0800 [facility] Last Admin: 01/08/18 10:39 Dose: 1 tab Pantoprazole Sodium (Protonix Ec Tab) 40 mg PO 0600 [facility] Last Admin: 01/08/18 05:43 Dose: Not Given Quetiapine Fumarate (Seroquel) 12.5 mg PO HS PRN; Protocol PRN Reason: Agitation Last Admin: 01/07/18 20:57 Dose: 12.5 mg Thiamine HCl (Vitamin B1 Tab) 100 mg PO DAILY [facility] Last Admin: 01/08/18 10:39 Dose: 100 mg Zinc Sulfate (Zinc Sulfate 220 Mg Cap) 220 mg PO DAILY [facility] Last Admin: 01/08/18 10:39 Dose: 220 mg - Labs Labs: 01/03/18 05:20 01/03/18 05:20 PT 12.5 SECONDS (9.4-12.5) 12/09/17 10:00 INR 1.09 (0.93-1.08) H 12/09/17 10:00 APTT 28.3 Seconds (25.1-36.5) 11/30/17 05:30 - Constitutional Appears: Non-toxic, No Acute Distress - Head Exam Head Exam: ATRAUMATIC, NORMOCEPHALIC - Eye Exam Eye Exam: EOMI, Normal appearance - ENT Exam ENT Exam: Mucous Membranes Moist - Neck Exam Neck Exam: Normal Inspection - Cardiovascular Exam Cardiovascular Exam: RRR, +S1, +S2 - GI/Abdominal Exam GI & Abdominal Exam: Soft, Normal Bowel Sounds. absent: Guarding, Rebound - Extremities Exam Extremities Exam: Normal Inspection. absent: Pedal Edema - Neurological Exam Neurological Exam: Awake Additional comments: not oriented to person, place, or time - Psychiatric Exam Psychiatric exam: Flat Affect - Skin Skin Exam: Dry, Intact, Normal Color, Warm Assessment and Plan - Assessment and Plan (Free Text) Assessment: 57 year old male with unknown past medical history who was brought in via EMS for AMS covered in feces in his apartment. 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 He is on IV ceftriaxone for his bacteremia and is pending Transesophageal Echocardiogram and colonoscopy to rule out endocarditis and colon cancer, respectively. Important to note, patient is unable to give consent for TAHIR and colonoscopy secondary to being not of decision-making capacity. Patient is day 38.5 of 42 of antibiotic treatment. Plan: 1) Demented: - Executive function is impaired - Continue with delirium precautions 2) Bacteremia with Strep Viridans/Mitis and Coag Neg Staph Bacteremia -Continue IV Ceftriaxone therapy, currently day 38.; course extended secondary to increased ESR/CRP -Repeat weekly ESR/CRP -Repeat blood cultures negative -TAHIR to be done when consent can be obtained -Psychiatry, Cardiology, Neurology and ID consulted, all recommendations appreciated -PT/OT recommending JOSIAH upon discharge 3) Colonic Neoplasm -Flexible sigmoidoscopy/Colonoscopy to be done when consent can be obtained -GI consulted, all recommendations appreciated 4) Multifocal Pneumonia in the setting of recent Influenzae A infection -Continue with Ceftriaxone. 5) Ischemic Stroke -Continue ASA 81mg and Lipitor 20mg 6) History of Alcohol Abuse/Withdrawal - PO Folate,Thiamine, and Multivitamin supplements - Fall, Seizure, and Aspiration precautions 6) DM II -Blood glucose moderately controlled -Levemir 10 units HS -Added regular insulin 3u AC -Continue insulin lispart sliding scale low for additional coverage -Carb Consistent Diet 7) HTN - Continue Lisinopril 10mg - Norvasc 10mg PO daily 8) Sacral decubitus: resolved - Continue Q2h repositioning as patient tolerates - OOB to chair; patient is refusing. 9) Affective disorder, unspecified - Geodon PRN - Seroquel HS - Ativan 0.5 mg BID [facility] - Psychiatry consulted, recommendations noted 10) GI/DVT prophylaxis - Protonix 40 daily - Lovenox 40 SC Disposition: The patient lack decision making capacity. He does not has understanding of his diagnosis, medical treatment, potential benefit and risk associated with and without treatment. The patient has multiple medical condition, getting treatment for possible endocarditis, gram positive bacteremia and colonic lesion could be malignant and CVA. Patient has dementia likely due to alcohol abuse. Patient does not has any behavior problem. Basically at this time, patient does not has capacity to make decision for himself. He need sales manager care and supervision at this time, need help in medication, feeding and change of position. Patient discussed and reviewed with attending Dr. Schumacher. <Deanna Schumacher - Last Filed: 01/09/18 12:01> Objective - Vital Signs/Intake and Output Vital Signs (last 24 hours): Temp Pulse Resp BP Pulse Ox 97.9 F 96 H 20 123/74 96 01/09/18 07:44 01/09/18 09:12 01/09/18 07:44 01/09/18 09:13 01/09/18 07:44 - Medications Medications: Current Medications Amlodipine Besylate (Norvasc) 10 mg PO DAILY [facility] Last Admin: 01/09/18 09:13 Dose: 10 mg Aspirin (Ecotrin) 81 mg PO DAILY [facility] Last Admin: 01/09/18 09:13 Dose: 81 mg Atorvastatin Calcium (Lipitor) 20 mg PO DIN [facility] Last Admin: 01/08/18 16:36 Dose: 20 mg Clotrimazole (Lotrimin Af 1%) 0 ml TOP BID [facility] Last Admin: 01/08/18 18:36 Dose: 1 applic Enoxaparin Sodium (Lovenox) 40 mg SC DAILY [facility] PRN Reason: Protocol Last Admin: 01/09/18 09:13 Dose: 40 mg Folic Acid (Folic Acid) 1 mg PO DAILY [facility] Last Admin: 01/09/18 09:12 Dose: 1 mg Hydralazine HCl (Apresoline) 10 mg IVP Q6 PRN PRN Reason: For SBP > 150 Last Admin: 12/13/17 08:32 Dose: 10 mg Ceftriaxone Sodium (Rocephin 2 Gm Ivpb) 2 gm in 100 mls @ 100 mls/hr IVPB DAILY [facility] PRN Reason: Protocol Stop: 01/16/18 10:01 Last Admin: 01/09/18 09:13 Dose: 100 mls/hr Insulin Detemir (Levemir) 10 unit SC [facility] Last Admin: 01/08/18 22:29 Dose: 10 unit Insulin Human Lispro (Humalog Low) 0 units SC [facility] PRN Reason: Protocol Last Admin: 01/09/18 07:47 Dose: Not Given Insulin Human Regular (Humulin R) 3 units SC AC [facility] Last Admin: 01/09/18 08:22 Dose: 3 units Lisinopril (Zestril) 10 mg PO DAILY [facility] Last Admin: 01/09/18 09:12 Dose: 10 mg Lorazepam (Ativan) 0.5 mg PO BID PRN; Protocol PRN Reason: anxiety and restlessness Multivitamins/Minerals (Therapeutic-M Tab) 1 tab PO 0800 [facility] Last Admin: 01/09/18 08:22 Dose: 1 tab Pantoprazole Sodium (Protonix Ec Tab) 40 mg PO 0600 [facility] Last Admin: 01/09/18 05:45 Dose: 40 mg Quetiapine Fumarate (Seroquel) 12.5 mg PO HS PRN; Protocol PRN Reason: Agitation Last Admin: 01/08/18 22:29 Dose: 12.5 mg Thiamine HCl (Vitamin B1 Tab) 100 mg PO DAILY [facility] Last Admin: 01/09/18 09:13 Dose: 100 mg Zinc Sulfate (Zinc Sulfate 220 Mg Cap) 220 mg PO DAILY [facility] Last Admin: 01/09/18 09:13 Dose: 220 mg - Labs Labs: 01/03/18 05:20 01/03/18 05:20 PT 12.5 SECONDS (9.4-12.5) 12/09/17 10:00 INR 1.09 (0.93-1.08) H 12/09/17 10:00 APTT 28.3 Seconds (25.1-36.5) 11/30/17 05:30 Attending/Attestation - Attestation I have personally seen and examined this patient.: Yes I have fully participated in the care of the patient.: Yes I have reviewed all pertinent clinical information, including history, physical exam and plan: Yes Notes (Text): 01/09/18 11:59 Medical record note made by the resident after discussion with my direction and input after the patient was personally seen and examined by me. I have reviewed the chart and agree that the record accurately reflects by personal performance of the history, physical exam, data review, and medical decision-making, in the course for the patient. I have also personally directed the plan of care. 57 year old male with no known past medical history was admitted with altered mental status, covered in feces in his apartment. He was found to have for right hip cellulitis, which has improved. CT chest also showed multifocal pneumonia for which he received iv antibiotics. He was also treated with tamiflu for flu. He was also found to have Streptococcus viridian in blood cultures for which he is on iv antibiotics. Repeat cultures have been negative. Echocardiogram was done which could not rule out septic vegetations of the aortic valve. Family was not available to give consent for TAHIR. Continue with iv antibiotics as per ID; will need 6 weeks total with weekly CBC , CMP, ESR, and CRP.MRI showed acute vs subacute infarct. Patient mental status is at base line at this time.CT abd/pelvis showed new colonic mass and possible metastatic disease to the liver. GI planned for sigmoidoscopy however again family is not available to give consent for procedure. Case management is working on guardianship/ disposition 01/09/18 12:00
[2018-01-08] MEDS: Clotrimazole 1% Top Soln(10 ml) TOP SCH ×2 (12:02→18:36)
--- NOTE | 2018-01-08 17:45 | PN ---
DATE: 01/08/2018 SUBJECTIVE: The patient is in bed, in no acute distress, nontoxic. PHYSICAL EXAMINATION: VITAL SIGNS: Temperature is 97, blood pressure is 130/70, respiratory rate 20. HEENT: Unremarkable. NECK: Supple. LUNGS: Have decreased breath sounds. HEART: Normal S1, S2. ABDOMEN: Soft, nontender. LABORATORY DATA: Reveals the patient's sed rate is 42. Chemistries reveal creatinine 0.5. Influenza is positive. Microbiology is noted. Review of orders reveals the patient to be on ceftriaxone. ASSESSMENT AND PLAN: This is a 57-year-old male with sepsis due to Streptococcus viridans bacteremia and coagulase-negative Staphylococcus bacteremia with right gluteal and back cellulitis, multifocal healthcare-associated pneumonia with influenza, on ceftriaxone, today is day #39 of 42 days and we will follow with you. Recommend CBC and SMA-18, which is full chemistry with a sed rate and C-reactive protein, once weekly. Daniel Torres MD
[2018-01-08] MEDS: Insulin Detemir 100 units/ml Vial (Levemir) SC SCH (22:29)
[2018-01-09] MEDS: Pantoprazole 40 mg EC Tab PO SCH (05:45)
[2018-01-09] MEDS: Insulin Lispro (humaLOG) LOW Coverage SC SCH ×4 (07:47→21:54)
[2018-01-09] MEDS: Multivitamin With Minerals Tab PO SCH (08:22)
[2018-01-09] MEDS: Insulin Regular 1 UNITS/0.01 ML ML SC SCH ×3 (08:22→17:03)
[2018-01-09] MEDS: Enoxaparin 40 mg Syringe SC SCH (09:13)
[2018-01-09] MEDS: cefTRIAXone 2 GM IN NS 2 GM/100 ML BAG IVPB SCH (09:13)
[2018-01-09] MEDS: Clotrimazole 1% Top Soln(10 ml) TOP SCH ×2 (10:00→17:06)
[2018-01-09] MEDS: Insulin Detemir 100 units/ml Vial (Levemir) SC SCH (21:54)
[2018-01-10] MEDS: Pantoprazole 40 mg EC Tab PO SCH (05:56)
[2018-01-10 06:33] LABS: BASO # 0.04 K/mm3 (0.0-2.0); BASO % 0.4 % (0.0-3.0); EOS # 0.2 (0.0-0.7); GRAN # 5.72 (1.4-6.5); GRAN % 61.5 % (50.0-68.0); HEMOGLOBIN 11.6 g/dL (14.0-18.0); LYMPH # 2.5 (1.2-3.4); LYMPH % 26.9 % (22.0-35.0); MEAN CELL VOLUME 87.6 fl (80.0-105.0); MEAN CORPUSCULAR HEMOGLOBIN 28.9 pg (25.0-35.0); MEAN PLATELET VOLUME 9.3 fl (7.0-11.0); MONO # 0.9 (0.1-0.6); MONO % 9.2 % (1.0-6.0); RBC 4.02 10^6/uL (3.5-6.1); RED CELL DISTRIBUTION WIDTH 16.5 % (11.5-14.5); WHITE BLOOD COUNT 9.3 10^3/ul (4.5-11.0)
[2018-01-10 06:44] LABS: ALB/GLOB RATIO 1.1 (1.1-1.8); ALBUMIN 3.6 g/dL (3.0-4.8); ALT/SGPT 26 U/L (7-56); AST/SGOT 27 U/L (17-59); BLOOD UREA NITROGEN 13 mg/dL (7-21); CALCIUM 10.2 mg/dL (8.4-10.5); GFR NON-AFRICAN AMERICAN > 60
--- NOTE | 2018-01-10 07:56 | PN ---
DATE: 01/09/2018 SUBJECTIVE: Patient is in bed, in no acute distress, nontoxic. PHYSICAL EXAMINATION VITAL SIGNS: Temperature 97, blood pressure is 111/50, respiratory rate of 20. HEENT: Unremarkable. NECK: Supple. LUNGS: Decreased breath sounds. HEART: Normal S1 and S2. ABDOMEN: Soft, nontender. LABORATORY EXAMINATION: Reveals the patient's white count is 8000, hemoglobin is 12. Chemistries are noted. Review of orders reveals the patient to be on ceftriaxone. ASSESSMENT AND PLAN: A 57-year-old male who was seen early this morning in room 363, bed 1 with sepsis due to Streptococcus viridans bacteremia, coag-negative Staphylococcus bacteremia with a right gluteal and back cellulitis, multifocal healthcare-associated pneumonia. Today is day . Danile Torres MD
[2018-01-10] MEDS: Insulin Lispro (humaLOG) LOW Coverage SC SCH ×4 (09:07→21:36)
[2018-01-10] MEDS: Insulin Regular 1 UNITS/0.01 ML ML SC SCH ×3 (10:35→16:54)
[2018-01-10] MEDS: Clotrimazole 1% Top Soln(10 ml) TOP SCH (10:35)
[2018-01-10] MEDS: Multivitamin With Minerals Tab PO SCH (10:36)
[2018-01-10] MEDS: Enoxaparin 40 mg Syringe SC SCH (10:38)
[2018-01-10] MEDS: cefTRIAXone 2 GM IN NS 2 GM/100 ML BAG IVPB SCH (10:38)
--- NOTE | 2018-01-10 15:34 | CP.PCM.PN ---
Subjective - Date & Time of Evaluation Date of Evaluation: 01/10/18 Time of Evaluation: 10:20 - Subjective Subjective: No fevers, not in distress. Objective - Vital Signs/Intake and Output Vital Signs (last 24 hours): Temp Pulse Resp BP Pulse Ox 97.6 F 97 H 19 111/55 L 94 L 01/09/18 16:00 01/09/18 16:00 01/09/18 16:00 01/09/18 16:00 01/09/18 16:00 - Medications Medications: Current Medications Amlodipine Besylate (Norvasc) 10 mg PO DAILY [facility] Last Admin: 01/09/18 09:13 Dose: 10 mg Aspirin (Ecotrin) 81 mg PO DAILY [facility] Last Admin: 01/09/18 09:13 Dose: 81 mg Atorvastatin Calcium (Lipitor) 20 mg PO DIN [facility] Last Admin: 01/09/18 17:03 Dose: 20 mg Clotrimazole (Lotrimin Af 1%) 0 ml TOP BID [facility] Last Admin: 01/09/18 17:06 Dose: 1 applic Enoxaparin Sodium (Lovenox) 40 mg SC DAILY [facility] PRN Reason: Protocol Last Admin: 01/09/18 09:13 Dose: 40 mg Folic Acid (Folic Acid) 1 mg PO DAILY [facility] Last Admin: 01/09/18 09:12 Dose: 1 mg Hydralazine HCl (Apresoline) 10 mg IVP Q6 PRN PRN Reason: For SBP > 150 Last Admin: 12/13/17 08:32 Dose: 10 mg Ceftriaxone Sodium (Rocephin 2 Gm Ivpb) 2 gm in 100 mls @ 100 mls/hr IVPB DAILY [facility] PRN Reason: Protocol Stop: 01/16/18 10:01 Last Admin: 01/09/18 09:13 Dose: 100 mls/hr Insulin Detemir (Levemir) 10 unit SC HS [facility] Last Admin: 01/09/18 21:54 Dose: 10 unit Insulin Human Lispro (Humalog Low) 0 units SC ACHS [facility] PRN Reason: Protocol Last Admin: 01/09/18 21:54 Dose: 1 units Insulin Human Regular (Humulin R) 3 units SC AC [facility] Last Admin: 01/09/18 17:03 Dose: 3 units Lisinopril (Zestril) 10 mg PO DAILY [facility] Last Admin: 01/09/18 09:12 Dose: 10 mg Lorazepam (Ativan) 0.5 mg PO BID PRN; Protocol PRN Reason: anxiety and restlessness Multivitamins/Minerals (Therapeutic-M Tab) 1 tab PO 0800 [facility] Last Admin: 01/09/18 08:22 Dose: 1 tab Pantoprazole Sodium (Protonix Ec Tab) 40 mg PO 0600 [facility] Last Admin: 01/10/18 05:56 Dose: 40 mg Quetiapine Fumarate (Seroquel) 12.5 mg PO HS PRN; Protocol PRN Reason: Agitation Last Admin: 01/09/18 22:21 Dose: 12.5 mg Thiamine HCl (Vitamin B1 Tab) 100 mg PO DAILY [facility] Last Admin: 01/09/18 09:13 Dose: 100 mg Zinc Sulfate (Zinc Sulfate 220 Mg Cap) 220 mg PO DAILY [facility] Last Admin: 01/09/18 09:13 Dose: 220 mg - Labs Labs: 01/10/18 05:30 01/10/18 05:30 PT 12.5 SECONDS (9.4-12.5) 12/09/17 10:00 INR 1.09 (0.93-1.08) H 12/09/17 10:00 APTT 28.3 Seconds (25.1-36.5) 11/30/17 05:30 - Constitutional Appears: Non-toxic, Chronically Ill - Head Exam Head Exam: NORMAL INSPECTION - ENT Exam ENT Exam: Mucous Membranes Moist - Neck Exam Neck Exam: absent: Meningismus - Respiratory Exam Respiratory Exam: Decreased Breath Sounds - Cardiovascular Exam Cardiovascular Exam: +S1, +S2 - GI/Abdominal Exam GI & Abdominal Exam: Soft. absent: Tenderness Assessment and Plan - Assessment and Plan (Free Text) Plan: Assessment sepsis due to strep viridans and CoNS bacteremia from right gluteal and back cellulitis S/P multifocal HCAP on top of Influenza A infection R/O Sammie infection of sacral area as well Plan continue Rocephin for the Strep viridans bacteremia (would continue 4-6 weeks of Rocephin with weekly ESR, CRP, CBC, CMP) day 41 of 42 days; unable to do TAHIR since patient unable to give consent and patient does not have family to give consent would recommend to complete 6 weeks of therapy will continue to follow clinically
--- NOTE | 2018-01-10 16:15 | CP.PCM.PN ---
<Nikita Hurley - Last Filed: 01/10/18 18:59> Subjective - Date & Time of Evaluation Date of Evaluation: 01/10/18 Time of Evaluation: 07:30 - Subjective Subjective: Nikita Hurley DO PGY-1: Hospitalist Service Patient seen and examined at bedside. No complaints, states he feels rotten and can't wait to get out of the hospital. Nurse reports no events overnight. Objective - Vital Signs/Intake and Output Vital Signs (last 24 hours): Temp Pulse Resp BP Pulse Ox 97.6 F 90 19 118/71 94 L 01/09/18 16:00 01/10/18 10:37 01/09/18 16:00 01/10/18 10:38 01/09/18 16:00 Intake and Output: 01/10/18 01/10/18 06:59 18:59 Intake Total 840 Balance 840 - Medications Medications: Current Medications Amlodipine Besylate (Norvasc) 10 mg PO DAILY [facility] Last Admin: 01/10/18 10:38 Dose: 10 mg Aspirin (Ecotrin) 81 mg PO DAILY [facility] Last Admin: 01/10/18 10:38 Dose: 81 mg Atorvastatin Calcium (Lipitor) 20 mg PO DIN [facility] Last Admin: 01/09/18 17:03 Dose: 20 mg Clotrimazole (Lotrimin Af 1%) 0 ml TOP BID [facility] Last Admin: 01/10/18 10:35 Dose: 1 applic Enoxaparin Sodium (Lovenox) 40 mg SC DAILY [facility] PRN Reason: Protocol Last Admin: 01/10/18 10:38 Dose: 40 mg Folic Acid (Folic Acid) 1 mg PO DAILY [facility] Last Admin: 01/10/18 10:36 Dose: 1 mg Hydralazine HCl (Apresoline) 10 mg IVP Q6 PRN PRN Reason: For SBP > 150 Last Admin: 12/13/17 08:32 Dose: 10 mg Ceftriaxone Sodium (Rocephin 2 Gm Ivpb) 2 gm in 100 mls @ 100 mls/hr IVPB DAILY [facility] PRN Reason: Protocol Stop: 01/16/18 10:01 Last Admin: 01/10/18 10:38 Dose: 100 mls/hr Insulin Detemir (Levemir) 10 unit SC [facility] Last Admin: 01/09/18 21:54 Dose: 10 unit Insulin Human Lispro (Humalog Low) 0 units SC ACHS [facility] PRN Reason: Protocol Last Admin: 01/10/18 12:40 Dose: 2 units Insulin Human Regular (Humulin R) 3 units SC AC [facility] Last Admin: 01/10/18 12:41 Dose: 3 units Lisinopril (Zestril) 10 mg PO DAILY [facility] Last Admin: 01/10/18 10:37 Dose: 10 mg Lorazepam (Ativan) 0.5 mg PO BID PRN; Protocol PRN Reason: anxiety and restlessness Multivitamins/Minerals (Therapeutic-M Tab) 1 tab PO 0800 [facility] Last Admin: 01/10/18 10:36 Dose: 1 tab Pantoprazole Sodium (Protonix Ec Tab) 40 mg PO 0600 [facility] Last Admin: 01/10/18 05:56 Dose: 40 mg Quetiapine Fumarate (Seroquel) 12.5 mg PO HS PRN; Protocol PRN Reason: Agitation Last Admin: 01/09/18 22:21 Dose: 12.5 mg Thiamine HCl (Vitamin B1 Tab) 100 mg PO DAILY [facility] Last Admin: 01/10/18 10:38 Dose: 100 mg Zinc Sulfate (Zinc Sulfate 220 Mg Cap) 220 mg PO DAILY [facility] Last Admin: 01/10/18 10:37 Dose: 220 mg - Labs Labs: 01/10/18 05:30 01/10/18 05:30 PT 12.5 SECONDS (9.4-12.5) 12/09/17 10:00 INR 1.09 (0.93-1.08) H 12/09/17 10:00 APTT 28.3 Seconds (25.1-36.5) 11/30/17 05:30 - Constitutional Appears: Non-toxic, No Acute Distress - Head Exam Head Exam: ATRAUMATIC, NORMOCEPHALIC - Eye Exam Eye Exam: EOMI, Normal appearance - ENT Exam ENT Exam: Mucous Membranes Moist, Normal Oropharynx - Neck Exam Neck Exam: Normal Inspection - Respiratory Exam Respiratory Exam: Clear to Ausculation Bilateral, NORMAL BREATHING PATTERN. absent: Accessory Muscle Use - Cardiovascular Exam Cardiovascular Exam: RRR, +S1, +S2 - GI/Abdominal Exam GI & Abdominal Exam: Soft, Normal Bowel Sounds - Extremities Exam Extremities Exam: Normal Inspection. absent: Normal Capillary Refill - Back Exam Back Exam: NORMAL INSPECTION. absent: CVA tenderness (L), CVA tenderness (R) - Neurological Exam Neurological Exam: Alert, Awake Additional comments: not oriented to person or time, oriented to place - Psychiatric Exam Psychiatric exam: Depressed, Flat Affect - Skin Skin Exam: Dry, Intact, Normal Color, Warm Assessment and Plan - Assessment and Plan (Free Text) Assessment: 57 year old male with unknown past medical history who was brought in via EMS for AMS covered in feces in his apartment. 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 He is on IV ceftriaxone for his bacteremia and is pending Transesophageal Echocardiogram and colonoscopy to rule out endocarditis and colon cancer, respectively. Important to note, patient is unable to give consent for TAHIR and colonoscopy secondary to being not of decision-making capacity. Patient is day 41 of 42 of antibiotic treatment. Plan: 1) Demented: - Executive function is impaired - Continue with delirium precautions 2) Bacteremia with Strep Viridans/Mitis and Coag Neg Staph Bacteremia -Continue IV Ceftriaxone therapy, currently day 41 of 42; course extended secondary to increased ESR/CRP -Repeat weekly ESR/CRP -Repeat blood cultures negative -TAHIR to be done when consent can be obtained -Psychiatry, Cardiology, Neurology and ID consulted, all recommendations appreciated -PT/OT recommending JOSIAH upon discharge 3) Colonic Neoplasm -Flexible sigmoidoscopy/Colonoscopy to be done when consent can be obtained -GI consulted, all recommendations appreciated 4) Multifocal Pneumonia in the setting of recent Influenzae A infection -Continue with Ceftriaxone. 5) Ischemic Stroke -Continue ASA 81mg and Lipitor 20mg 6) History of Alcohol Abuse/Withdrawal - PO Folate,Thiamine, and Multivitamin supplements - Fall, Seizure, and Aspiration precautions 6) DM II -Blood glucose moderately controlled -Levemir 10 units HS -Added regular insulin 3u AC -Continue insulin lispart sliding scale low for additional coverage -Carb Consistent Diet 7) HTN - Continue Lisinopril 10mg - Norvasc 10mg PO daily 8) Sacral decubitus: resolved - Continue Q2h repositioning as patient tolerates - OOB to chair; patient is refusing. 9) Affective disorder, unspecified - Geodon PRN - Celexa 10 mg PO Daily - Seroquel HS - Ativan 0.5 mg BID [facility] - Psychiatry consulted, recommendations noted 10) GI/DVT prophylaxis - Protonix 40 daily - Lovenox 40 SC Disposition: The patient lack decision making capacity. He does not has understanding of his diagnosis, medical treatment, potential benefit and risk associated with and without treatment. The patient has multiple medical condition, getting treatment for possible endocarditis, gram positive bacteremia and colonic lesion could be malignant and CVA. Patient has dementia likely due to alcohol abuse. Patient does not has any behavior problem. Basically at this time, patient does not has capacity to make decision for himself. He need oil heaterman care and supervision at this time, need help in medication, feeding and change of position. Patient discussed and reviewed with attending Dr. Lang. <Graeme Lang - Last Filed: 01/14/18 13:28> Objective - Vital Signs/Intake and Output Vital Signs (last 24 hours): Temp Pulse Resp BP Pulse Ox 98.0 F 89 20 121/70 94 L 01/14/18 07:24 01/14/18 07:24 01/14/18 07:24 01/14/18 09:11 01/14/18 07:24 Intake and Output: 01/14/18 01/14/18 06:59 18:59 Intake Total 900 Balance 900 - Medications Medications: Current Medications Amlodipine Besylate (Norvasc) 10 mg PO DAILY [facility] Last Admin: 01/14/18 09:11 Dose: 10 mg Aspirin (Ecotrin) 81 mg PO DAILY [facility] Last Admin: 01/14/18 09:08 Dose: 81 mg Atorvastatin Calcium (Lipitor) 20 mg PO DIN [facility] Last Admin: 01/13/18 17:40 Dose: 20 mg Citalopram Hydrobromide (Celexa) 10 mg PO DAILY [facility] Last Admin: 01/14/18 09:08 Dose: 10 mg Clotrimazole (Lotrimin Af 1%) 0 ml TOP BID [facility] Last Admin: 01/14/18 09:10 Dose: 1 applic Enoxaparin Sodium (Lovenox) 40 mg SC DAILY [facility] PRN Reason: Protocol Last Admin: 01/14/18 09:08 Dose: 40 mg Folic Acid (Folic Acid) 1 mg PO DAILY [facility] Last Admin: 01/14/18 09:09 Dose: 1 mg Hydralazine HCl (Apresoline) 10 mg IVP Q6 PRN PRN Reason: For SBP > 150 Last Admin: 12/13/17 08:32 Dose: 10 mg Insulin Detemir (Levemir) 10 unit SC HS [facility] Last Admin: 01/13/18 22:15 Dose: 10 unit Insulin Human Lispro (Humalog Low) 0 units SC ACHS [facility] PRN Reason: Protocol Last Admin: 01/14/18 12:47 Dose: 1 units Insulin Human Regular (Humulin R) 3 units SC AC [facility] Last Admin: 01/14/18 12:45 Dose: 3 units Lisinopril (Zestril) 10 mg PO DAILY [facility] Last Admin: 01/14/18 09:08 Dose: 10 mg Lorazepam (Ativan) 0.5 mg PO BID PRN; Protocol PRN Reason: anxiety and restlessness Multivitamins/Minerals (Therapeutic-M Tab) 1 tab PO 0800 [facility] Last Admin: 01/14/18 08:24 Dose: 1 tab Pantoprazole Sodium (Protonix Ec Tab) 40 mg PO 0600 [facility] Last Admin: 01/14/18 06:48 Dose: 40 mg Quetiapine Fumarate (Seroquel) 12.5 mg PO HS PRN; Protocol PRN Reason: Agitation Last Admin: 01/09/18 22:21 Dose: 12.5 mg Thiamine HCl (Vitamin B1 Tab) 100 mg PO DAILY [facility] Last Admin: 01/14/18 09:08 Dose: 100 mg Zinc Sulfate (Zinc Sulfate 220 Mg Cap) 220 mg PO DAILY [facility] Last Admin: 01/14/18 09:08 Dose: 220 mg - Labs Labs: 01/10/18 05:30 01/10/18 05:30 PT 12.5 SECONDS (9.4-12.5) 12/09/17 10:00 INR 1.09 (0.93-1.08) H 12/09/17 10:00 APTT 28.3 Seconds (25.1-36.5) 11/30/17 05:30 Attending/Attestation - Attestation I have personally seen and examined this patient.: Yes I have fully participated in the care of the patient.: Yes I have reviewed all pertinent clinical information, including history, physical exam and plan: Yes Notes (Text): 57 year old male with unknown past medical history who was brought in via EMS for AMS covered in feces in his apartment. 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 He is on IV ceftriaxone for his bacteremia and is pending Transesophageal Echocardiogram and colonoscopy to rule out endocarditis and colon cancer, respectively. Important to note, patient is unable to give consent for TAHIR and colonoscopy secondary to being not of decision-making capacity. Patient is day 41 of 42 of antibiotic treatment. Plan: 1) Dementia 2) Bacteremia with Strep Viridans/Mitis and Coag Neg Staph Bacteremia 3) Colonic Neoplasm 4) Multifocal Pneumonia in the setting of recent Influenzae A infection 5) Ischemic Stroke 6) History of Alcohol Abuse/Withdrawal
[2018-01-10] MEDS: Insulin Detemir 100 units/ml Vial (Levemir) SC SCH (21:34)
[2018-01-11] MEDS: Pantoprazole 40 mg EC Tab PO SCH (06:12)
[2018-01-11] MEDS: Insulin Lispro (humaLOG) LOW Coverage SC SCH ×4 (09:51→22:30)
[2018-01-11] MEDS: Enoxaparin 40 mg Syringe SC SCH (10:36)
[2018-01-11] MEDS: cefTRIAXone 2 GM IN NS 2 GM/100 ML BAG IVPB SCH (10:37)
[2018-01-11] MEDS: Insulin Regular 1 UNITS/0.01 ML ML SC SCH ×3 (10:40→18:34)
[2018-01-11] MEDS: Multivitamin With Minerals Tab PO SCH (10:40)
--- NOTE | 2018-01-11 18:58 | CP.PCM.PN ---
<XaviNikita - Last Filed: 01/12/18 09:13> Subjective - Date & Time of Evaluation Date of Evaluation: 01/11/18 Time of Evaluation: 07:35 - Subjective Subjective: Patient seen and examined at bedside. Patient endorses no complaints. Nurse reports yesterday patient refused to get OOB to chair. Objective - Vital Signs/Intake and Output Vital Signs (last 24 hours): Temp Pulse Resp BP Pulse Ox 97.6 F 89 18 116/79 95 01/11/18 08:02 01/11/18 08:02 01/11/18 08:02 01/11/18 10:35 01/11/18 08:02 Intake and Output: 01/11/18 01/11/18 06:59 18:59 Intake Total 960 Balance 960 - Medications Medications: Current Medications Amlodipine Besylate (Norvasc) 10 mg PO DAILY [facility] Last Admin: 01/11/18 10:35 Dose: 10 mg Aspirin (Ecotrin) 81 mg PO DAILY [facility] Last Admin: 01/11/18 10:36 Dose: 81 mg Atorvastatin Calcium (Lipitor) 20 mg PO DIN [facility] Last Admin: 01/11/18 18:33 Dose: 20 mg Citalopram Hydrobromide (Celexa) 10 mg PO DAILY [facility] Last Admin: 01/11/18 10:34 Dose: 10 mg Clotrimazole (Lotrimin Af 1%) 0 ml TOP BID [facility] Last Admin: 01/10/18 10:35 Dose: 1 applic Enoxaparin Sodium (Lovenox) 40 mg SC DAILY [facility] PRN Reason: Protocol Last Admin: 01/11/18 10:36 Dose: 40 mg Folic Acid (Folic Acid) 1 mg PO DAILY [facility] Last Admin: 01/11/18 10:34 Dose: 1 mg Hydralazine HCl (Apresoline) 10 mg IVP Q6 PRN PRN Reason: For SBP > 150 Last Admin: 12/13/17 08:32 Dose: 10 mg Ceftriaxone Sodium (Rocephin 2 Gm Ivpb) 2 gm in 100 mls @ 100 mls/hr IVPB DAILY [facility] PRN Reason: Protocol Stop: 01/16/18 10:01 Last Admin: 01/11/18 10:37 Dose: 100 mls/hr Insulin Detemir (Levemir) 10 unit SC [facility] Last Admin: 01/10/18 21:34 Dose: 10 unit Insulin Human Lispro (Humalog Low) 0 units SC ACHS [facility] PRN Reason: Protocol Last Admin: 01/11/18 18:34 Dose: 3 units Insulin Human Regular (Humulin R) 3 units SC AC [facility] Last Admin: 01/11/18 18:34 Dose: 3 units Lisinopril (Zestril) 10 mg PO DAILY [facility] Last Admin: 01/11/18 10:36 Dose: 10 mg Lorazepam (Ativan) 0.5 mg PO BID PRN; Protocol PRN Reason: anxiety and restlessness Multivitamins/Minerals (Therapeutic-M Tab) 1 tab PO 0800 [facility] Last Admin: 01/11/18 10:40 Dose: 1 tab Pantoprazole Sodium (Protonix Ec Tab) 40 mg PO 0600 [facility] Last Admin: 01/11/18 06:12 Dose: 40 mg Quetiapine Fumarate (Seroquel) 12.5 mg PO HS PRN; Protocol PRN Reason: Agitation Last Admin: 01/09/18 22:21 Dose: 12.5 mg Thiamine HCl (Vitamin B1 Tab) 100 mg PO DAILY [facility] Last Admin: 01/11/18 10:34 Dose: 100 mg Zinc Sulfate (Zinc Sulfate 220 Mg Cap) 220 mg PO DAILY [facility] Last Admin: 01/11/18 10:37 Dose: 220 mg - Labs Labs: 01/10/18 05:30 01/10/18 05:30 PT 12.5 SECONDS (9.4-12.5) 12/09/17 10:00 INR 1.09 (0.93-1.08) H 12/09/17 10:00 APTT 28.3 Seconds (25.1-36.5) 11/30/17 05:30 - Constitutional Appears: Non-toxic - Head Exam Head Exam: ATRAUMATIC, NORMOCEPHALIC - Eye Exam Eye Exam: EOMI, Normal appearance - ENT Exam ENT Exam: Mucous Membranes Moist, Normal Oropharynx - Neck Exam Neck Exam: Normal Inspection - Respiratory Exam Respiratory Exam: Clear to Ausculation Bilateral, NORMAL BREATHING PATTERN. absent: Accessory Muscle Use - Cardiovascular Exam Cardiovascular Exam: RRR, +S1, +S2 - GI/Abdominal Exam GI & Abdominal Exam: Soft, Normal Bowel Sounds - Extremities Exam Extremities Exam: Normal Inspection - Back Exam Back Exam: NORMAL INSPECTION. absent: CVA tenderness (L), CVA tenderness (R) - Neurological Exam Neurological Exam: Alert, Awake Additional comments: oriented to person, place, but not time - Psychiatric Exam Psychiatric exam: Depressed, Flat Affect - Skin Skin Exam: Dry, Intact, Normal Color, Warm Assessment and Plan - Assessment and Plan (Free Text) Assessment: 57 year old male with unknown past medical history who was brought in via EMS for AMS covered in feces in his apartment. 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 He is on IV ceftriaxone for his bacteremia and is pending Transesophageal Echocardiogram and colonoscopy to rule out endocarditis and colon cancer, respectively. Important to note, patient is unable to give consent for TAHIR and colonoscopy secondary to being not of decision-making capacity. Patient is day 42 of 42 of antibiotic treatment. Plan: 1) Demented: - Executive function is impaired - Continue with delirium precautions 2) Bacteremia with Strep Viridans/Mitis and Coag Neg Staph Bacteremia -Continue IV Ceftriaxone therapy, currently day 42 of 42; course extended secondary to increased ESR/CRP -Repeat weekly ESR/CRP. ESR on 01/09 was 47 -Repeat blood cultures negative -TAHIR to be done when consent can be obtained -Psychiatry, Cardiology, Neurology and ID consulted, all recommendations appreciated -PT/OT recommending JOSIAH upon discharge 3) Colonic Neoplasm -Flexible sigmoidoscopy/Colonoscopy to be done when consent can be obtained -GI consulted, all recommendations appreciated 4) Multifocal Pneumonia in the setting of recent Influenzae A infection -Continue with Ceftriaxone. 5) Ischemic Stroke -Continue ASA 81mg and Lipitor 20mg 6) History of Alcohol Abuse/Withdrawal - PO Folate,Thiamine, and Multivitamin supplements - Fall, Seizure, and Aspiration precautions 6) DM II -Blood glucose moderately controlled -Levemir 10 units HS -Added regular insulin 3u AC -Continue insulin lispart sliding scale low for additional coverage -Carb Consistent Diet 7) HTN - Continue Lisinopril 10mg - Norvasc 10mg PO daily 8) Sacral decubitus: resolved - Continue Q2h repositioning as patient tolerates - OOB to chair; patient is refusing. 9) Affective disorder, unspecified - Geodon PRN - Celexa 10 mg PO Daily - Seroquel HS - Ativan 0.5 mg BID [facility] - Psychiatry consulted, recommendations noted 10) GI/DVT prophylaxis - Protonix 40 daily - Lovenox 40 SC Disposition: The patient lack decision making capacity. He does not has understanding of his diagnosis, medical treatment, potential benefit and risk associated with and without treatment. The patient has multiple medical condition, getting treatment for possible endocarditis, gram positive bacteremia and colonic lesion could be malignant and CVA. Patient has dementia likely due to alcohol abuse. Patient does not has any behavior problem. Basically at this time, patient does not has capacity to make decision for himself. He need care home care and supervision at this time, need help in medication, feeding and change of position. Patient discussed and reviewed with attending Dr. Lang. <Sixto Galo - Last Filed: 01/12/18 09:39> Objective - Vital Signs/Intake and Output Vital Signs (last 24 hours): Temp Pulse Resp BP Pulse Ox 98.0 F 97 H 20 126/79 95 01/12/18 06:00 01/12/18 06:00 01/12/18 06:00 01/12/18 06:00 01/12/18 06:00 Intake and Output: 01/12/18 01/12/18 06:59 18:59 Intake Total 990 Balance 990 - Medications Medications: Current Medications Amlodipine Besylate (Norvasc) 10 mg PO DAILY [facility] Last Admin: 01/11/18 10:35 Dose: 10 mg Aspirin (Ecotrin) 81 mg PO DAILY [facility] Last Admin: 01/11/18 10:36 Dose: 81 mg Atorvastatin Calcium (Lipitor) 20 mg PO DIN [facility] Last Admin: 01/11/18 18:33 Dose: 20 mg Citalopram Hydrobromide (Celexa) 10 mg PO DAILY [facility] Last Admin: 01/11/18 10:34 Dose: 10 mg Clotrimazole (Lotrimin Af 1%) 0 ml TOP BID [facility] Last Admin: 01/10/18 10:35 Dose: 1 applic Enoxaparin Sodium (Lovenox) 40 mg SC DAILY [facility] PRN Reason: Protocol Last Admin: 01/11/18 10:36 Dose: 40 mg Folic Acid (Folic Acid) 1 mg PO DAILY [facility] Last Admin: 01/11/18 10:34 Dose: 1 mg Hydralazine HCl (Apresoline) 10 mg IVP Q6 PRN PRN Reason: For SBP > 150 Last Admin: 12/13/17 08:32 Dose: 10 mg Ceftriaxone Sodium (Rocephin 2 Gm Ivpb) 2 gm in 100 mls @ 100 mls/hr IVPB DAILY [facility] PRN Reason: Protocol Stop: 01/16/18 10:01 Last Admin: 01/11/18 10:37 Dose: 100 mls/hr Insulin Detemir (Levemir) 10 unit SC HS [facility] Last Admin: 01/11/18 22:33 Dose: 10 unit Insulin Human Lispro (Humalog Low) 0 units SC ACHS [facility] PRN Reason: Protocol Last Admin: 01/12/18 09:17 Dose: Not Given Insulin Human Regular (Humulin R) 3 units SC AC [facility] Last Admin: 01/12/18 09:16 Dose: 3 units Lisinopril (Zestril) 10 mg PO DAILY [facility] Last Admin: 01/11/18 10:36 Dose: 10 mg Lorazepam (Ativan) 0.5 mg PO BID PRN; Protocol PRN Reason: anxiety and restlessness Multivitamins/Minerals (Therapeutic-M Tab) 1 tab PO 0800 [facility] Last Admin: 01/12/18 09:15 Dose: 1 tab Pantoprazole Sodium (Protonix Ec Tab) 40 mg PO 0600 [facility] Last Admin: 01/12/18 05:44 Dose: 40 mg Quetiapine Fumarate (Seroquel) 12.5 mg PO HS PRN; Protocol PRN Reason: Agitation Last Admin: 01/09/18 22:21 Dose: 12.5 mg Thiamine HCl (Vitamin B1 Tab) 100 mg PO DAILY [facility] Last Admin: 01/11/18 10:34 Dose: 100 mg Zinc Sulfate (Zinc Sulfate 220 Mg Cap) 220 mg PO DAILY [facility] Last Admin: 01/11/18 10:37 Dose: 220 mg - Labs Labs: 01/10/18 05:30 01/10/18 05:30 PT 12.5 SECONDS (9.4-12.5) 12/09/17 10:00 INR 1.09 (0.93-1.08) H 12/09/17 10:00 APTT 28.3 Seconds (25.1-36.5) 11/30/17 05:30 Attending/Attestation - Attestation I have personally seen and examined this patient.: Yes I have fully participated in the care of the patient.: Yes I have reviewed all pertinent clinical information, including history, physical exam and plan: Yes Notes (Text): 01/11/18 57 year old male with no know past medical history who was admitted with altered mental status. He was treated for right hip cellulitis, pneumonia and flu. He was also found to have strep viridans bacteremia for which he is on iv antibiotics, to complete course today as per ID. Echocardiogram could not rule out vegetations. Family is not available to give consent for TAHIR. He was also found to have acute vs subacute infarct. He is on aspirin and statin. CT abd/pelvis showed colonic mass and liver lesions. At this time consent cannot be obtained for sigmoidoscopy or biopsy. Case management and social services designee are working on guardianship and disposition. Sixto Galo MD Hospitalist.
[2018-01-11] MEDS: Insulin Detemir 100 units/ml Vial (Levemir) SC SCH (22:33)
--- NOTE | 2018-01-11 23:05 | PN ---
DATE: 01/11/2018 SUBJECTIVE: The patient was seen in bed, in no acute distress, nontoxic. PHYSICAL EXAMINATION: VITAL SIGNS: Temperature is 97, blood pressure is 116/70, respiratory rate of 18. HEENT: Unremarkable. NECK: Supple. LUNGS: Decreased breath sounds. HEART: Normal S1 and S2. ABDOMEN: Soft, nontender. LABORATORY DATA: Reveals a white count of 9.3, hemoglobin of 11, platelets of 282. BUN of 13, creatinine of 0.5. Influenza is positive. ASSESSMENT AND PLAN: This is a 57-year-old male with sepsis due to Streptococcus viridans and coag-negative Staphylococcus bacteremia with right gluteal and back cellulitis, status post multifocal healthcare-associated on top of influenza infection, on Rocephin day #42 of 42 days. We will discontinue it after today's last dose. Daniel Torres MD
[2018-01-12] MEDS: Pantoprazole 40 mg EC Tab PO SCH (05:44)
[2018-01-12] MEDS: Multivitamin With Minerals Tab PO SCH (09:15)
[2018-01-12] MEDS: Insulin Regular 1 UNITS/0.01 ML ML SC SCH ×3 (09:16→16:58)
[2018-01-12] MEDS: Insulin Lispro (humaLOG) LOW Coverage SC SCH ×4 (09:17→22:17)
[2018-01-12] MEDS: cefTRIAXone 2 GM IN NS 2 GM/100 ML BAG IVPB SCH (10:28)
[2018-01-12] MEDS: Enoxaparin 40 mg Syringe SC SCH (10:28)
[2018-01-12] MEDS: Clotrimazole 1% Top Soln(10 ml) TOP SCH ×2 (10:28→17:00)
--- NOTE | 2018-01-12 20:41 | PN ---
DATE: 01/12/2018 SUBJECTIVE: Patient is in bed, in no acute distress, nontoxic. PHYSICAL EXAMINATION: VITAL SIGNS: Temperature is 98, blood pressure is 126/79, respiratory rate 20, heart rate of 97. HEENT: Unremarkable. NECK: Supple. LUNGS: Have decreased breath sounds. HEART: Normal S1 and S2. ABDOMEN: Soft, nontender. LABORATORY EXAMINATION: Reveals the patient's white count is 9.3. Sed rate of 47. Chemistries are noted. ASSESSMENT AND PLAN: A 57-year-old male with sepsis due to Streptococcus viridans and coagulase-negative Staphylococcus bacteremia, right gluteal and back cellulitis, status post multifocal healthcare-associated on top of influenza, day #43 of ceftriaxone. We will discontinue ceftriaxone. No further antibiotics at this time. Case discussed with our staff. Patient is at risk for developing nosocomial infections. Daniel Torres MD
[2018-01-12] MEDS: Insulin Detemir 100 units/ml Vial (Levemir) SC SCH (22:16)
[2018-01-13] MEDS: Pantoprazole 40 mg EC Tab PO SCH (06:03)
[2018-01-13] MEDS: Insulin Lispro (humaLOG) LOW Coverage SC SCH ×4 (08:05→23:30)
[2018-01-13] MEDS: Insulin Regular 1 UNITS/0.01 ML ML SC SCH ×3 (08:06→17:40)
[2018-01-13] MEDS: Multivitamin With Minerals Tab PO SCH (08:06)
[2018-01-13] MEDS: Clotrimazole 1% Top Soln(10 ml) TOP SCH ×2 (09:20→17:40)
[2018-01-13] MEDS: Enoxaparin 40 mg Syringe SC SCH (09:21)
--- NOTE | 2018-01-13 15:45 | CP.PCM.PN ---
<Nikita Hurley - Last Filed: 01/13/18 18:07> Subjective - Date & Time of Evaluation Date of Evaluation: 01/12/18 Time of Evaluation: 07:45 - Subjective Subjective: Nikita Hurley DO, PGY-1: Hospitalist Service Patient seen and examined at bedside. Nurse reports patient was unable to sleep last night secondary to a loud, crying patient. Patient denies any chest pain, fever, nausea, or vomiting. Objective - Vital Signs/Intake and Output Vital Signs (last 24 hours): Temp Pulse Resp BP Pulse Ox 98.4 F 93 H 20 129/90 94 L 01/13/18 07:58 01/13/18 09:21 01/13/18 07:58 01/13/18 09:21 01/13/18 07:58 Intake and Output: 01/13/18 01/13/18 06:59 18:59 Intake Total 480 Balance 480 - Medications Medications: Current Medications Amlodipine Besylate (Norvasc) 10 mg PO DAILY [facility] Last Admin: 01/13/18 09:20 Dose: 10 mg Aspirin (Ecotrin) 81 mg PO DAILY [facility] Last Admin: 01/13/18 09:21 Dose: 81 mg Atorvastatin Calcium (Lipitor) 20 mg PO DIN [facility] Last Admin: 01/12/18 17:00 Dose: 20 mg Citalopram Hydrobromide (Celexa) 10 mg PO DAILY [facility] Last Admin: 01/13/18 09:21 Dose: 10 mg Clotrimazole (Lotrimin Af 1%) 0 ml TOP BID [facility] Last Admin: 01/13/18 09:20 Dose: 1 applic Enoxaparin Sodium (Lovenox) 40 mg SC DAILY [facility] PRN Reason: Protocol Last Admin: 01/13/18 09:21 Dose: 40 mg Folic Acid (Folic Acid) 1 mg PO DAILY [facility] Last Admin: 01/13/18 09:21 Dose: 1 mg Hydralazine HCl (Apresoline) 10 mg IVP Q6 PRN PRN Reason: For SBP > 150 Last Admin: 12/13/17 08:32 Dose: 10 mg Insulin Detemir (Levemir) 10 unit SC [facility] Last Admin: 01/12/18 22:16 Dose: 10 unit Insulin Human Lispro (Humalog Low) 0 units SC [facility] PRN Reason: Protocol Last Admin: 01/13/18 12:44 Dose: 3 units Insulin Human Regular (Humulin R) 3 units SC AC [facility] Last Admin: 01/13/18 12:45 Dose: 3 units Lisinopril (Zestril) 10 mg PO DAILY [facility] Last Admin: 01/13/18 09:21 Dose: 10 mg Lorazepam (Ativan) 0.5 mg PO BID PRN; Protocol PRN Reason: anxiety and restlessness Multivitamins/Minerals (Therapeutic-M Tab) 1 tab PO 0800 [facility] Last Admin: 01/13/18 08:06 Dose: 1 tab Pantoprazole Sodium (Protonix Ec Tab) 40 mg PO 0600 [facility] Last Admin: 01/13/18 06:03 Dose: 40 mg Quetiapine Fumarate (Seroquel) 12.5 mg PO HS PRN; Protocol PRN Reason: Agitation Last Admin: 01/09/18 22:21 Dose: 12.5 mg Thiamine HCl (Vitamin B1 Tab) 100 mg PO DAILY [facility] Last Admin: 01/13/18 09:21 Dose: 100 mg Zinc Sulfate (Zinc Sulfate 220 Mg Cap) 220 mg PO DAILY [facility] Last Admin: 01/13/18 09:20 Dose: 220 mg - Labs Labs: 01/10/18 05:30 01/10/18 05:30 PT 12.5 SECONDS (9.4-12.5) 12/09/17 10:00 INR 1.09 (0.93-1.08) H 12/09/17 10:00 APTT 28.3 Seconds (25.1-36.5) 11/30/17 05:30 - Constitutional Appears: Non-toxic, No Acute Distress - Head Exam Head Exam: ATRAUMATIC, NORMOCEPHALIC - Eye Exam Eye Exam: EOMI, Normal appearance - ENT Exam ENT Exam: Mucous Membranes Moist - Neck Exam Neck Exam: Normal Inspection - Respiratory Exam Respiratory Exam: Clear to Ausculation Bilateral, NORMAL BREATHING PATTERN. absent: Accessory Muscle Use - Cardiovascular Exam Cardiovascular Exam: RRR, +S1, +S2 - GI/Abdominal Exam GI & Abdominal Exam: Soft, Normal Bowel Sounds - Extremities Exam Extremities Exam: Normal Inspection - Back Exam Back Exam: NORMAL INSPECTION. absent: CVA tenderness (L), CVA tenderness (R) - Neurological Exam Neurological Exam: Alert, Awake Additional comments: oriented to place, not time or circumstance - Psychiatric Exam Psychiatric exam: Flat Affect - Skin Skin Exam: Dry, Intact, Normal Color, Warm Assessment and Plan - Assessment and Plan (Free Text) Assessment: 57 year old male with unknown past medical history who was brought in via EMS for AMS covered in feces in his apartment. 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 He is on IV ceftriaxone for his bacteremia and is pending Transesophageal Echocardiogram and colonoscopy to rule out endocarditis and colon cancer, respectively. Important to note, patient is unable to give consent for TAHIR and colonoscopy secondary to being not of decision-making capacity. Patient has completed antibiotic course Plan: 1) Demented: - Executive function is impaired - Continue with delirium precautions 2) Bacteremia with Strep Viridans/Mitis and Coag Neg Staph Bacteremia - Will continue to monitor WBC, ESR, and CRP weekly or more, if indicated -TAHIR to be done when consent can be obtained -Psychiatry, Cardiology, Neurology and ID consulted, all recommendations appreciated -PT/OT recommending JOSIAH upon discharge 3) Colonic Neoplasm -Flexible sigmoidoscopy/Colonoscopy to be done when consent can be obtained -GI consulted, all recommendations appreciated 4) Multifocal Pneumonia in the setting of recent Influenzae A infection -Continue with Ceftriaxone. 5) Ischemic Stroke -Continue ASA 81mg and Lipitor 20mg 6) History of Alcohol Abuse/Withdrawal - PO Folate,Thiamine, and Multivitamin supplements - Fall, Seizure, and Aspiration precautions 6) DM II -Blood glucose moderately controlled -Levemir 10 units HS -Added regular insulin 3u AC -Continue insulin lispart sliding scale low for additional coverage -Carb Consistent Diet 7) HTN - Continue Lisinopril 10mg - Norvasc 10mg PO daily 8) Sacral decubitus: resolved - Continue Q2h repositioning as patient tolerates - OOB to chair; patient is refusing. 9) Affective disorder, unspecified - Geodon PRN - Celexa 10 mg PO Daily - Seroquel HS - Ativan 0.5 mg BID [facility] - Psychiatry consulted, recommendations noted 10) GI/DVT prophylaxis - Protonix 40 daily - Lovenox 40 SC Disposition: The patient lack decision making capacity. He does not has understanding of his diagnosis, medical treatment, potential benefit and risk associated with and without treatment. The patient has multiple medical condition, getting treatment for possible endocarditis, gram positive bacteremia and colonic lesion could be malignant and CVA. Patient has dementia likely due to alcohol abuse. Patient does not has any behavior problem. Basically at this time, patient does not has capacity to make decision for himself. 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 Patient discussed and reviewed with attending Dr. Galo. <Sixto Galo - Last Filed: 01/14/18 07:29> Objective - Vital Signs/Intake and Output Vital Signs (last 24 hours): Temp Pulse Resp BP Pulse Ox 98.0 F 89 20 128/77 94 L 01/14/18 07:24 01/14/18 07:24 01/14/18 07:24 01/14/18 07:24 01/14/18 07:24 Intake and Output: 01/14/18 01/14/18 06:59 18:59 Intake Total 900 Balance 900 - Medications Medications: Current Medications Amlodipine Besylate (Norvasc) 10 mg PO DAILY [facility] Last Admin: 01/13/18 09:20 Dose: 10 mg Aspirin (Ecotrin) 81 mg PO DAILY [facility] Last Admin: 01/13/18 09:21 Dose: 81 mg Atorvastatin Calcium (Lipitor) 20 mg PO DIN [facility] Last Admin: 01/13/18 17:40 Dose: 20 mg Citalopram Hydrobromide (Celexa) 10 mg PO DAILY [facility] Last Admin: 01/13/18 09:21 Dose: 10 mg Clotrimazole (Lotrimin Af 1%) 0 ml TOP BID [facility] Last Admin: 01/13/18 17:40 Dose: 1 applic Enoxaparin Sodium (Lovenox) 40 mg SC DAILY [facility] PRN Reason: Protocol Last Admin: 01/13/18 09:21 Dose: 40 mg Folic Acid (Folic Acid) 1 mg PO DAILY [facility] Last Admin: 01/13/18 09:21 Dose: 1 mg Hydralazine HCl (Apresoline) 10 mg IVP Q6 PRN PRN Reason: For SBP > 150 Last Admin: 12/13/17 08:32 Dose: 10 mg Insulin Detemir (Levemir) 10 unit SC [facility] Last Admin: 01/13/18 22:15 Dose: 10 unit Insulin Human Lispro (Humalog Low) 0 units SC [facility] PRN Reason: Protocol Last Admin: 01/13/18 23:30 Dose: Not Given Insulin Human Regular (Humulin R) 3 units SC AC [facility] Last Admin: 01/13/18 17:40 Dose: 3 units Lisinopril (Zestril) 10 mg PO DAILY [facility] Last Admin: 01/13/18 09:21 Dose: 10 mg Lorazepam (Ativan) 0.5 mg PO BID PRN; Protocol PRN Reason: anxiety and restlessness Multivitamins/Minerals (Therapeutic-M Tab) 1 tab PO 0800 [facility] Last Admin: 01/13/18 08:06 Dose: 1 tab Pantoprazole Sodium (Protonix Ec Tab) 40 mg PO 0600 [facility] Last Admin: 01/14/18 06:48 Dose: 40 mg Quetiapine Fumarate (Seroquel) 12.5 mg PO HS PRN; Protocol PRN Reason: Agitation Last Admin: 01/09/18 22:21 Dose: 12.5 mg Thiamine HCl (Vitamin B1 Tab) 100 mg PO DAILY [facility] Last Admin: 01/13/18 09:21 Dose: 100 mg Zinc Sulfate (Zinc Sulfate 220 Mg Cap) 220 mg PO DAILY [facility] Last Admin: 01/13/18 09:20 Dose: 220 mg - Labs Labs: 01/10/18 05:30 01/10/18 05:30 PT 12.5 SECONDS (9.4-12.5) 12/09/17 10:00 INR 1.09 (0.93-1.08) H 12/09/17 10:00 APTT 28.3 Seconds (25.1-36.5) 11/30/17 05:30 Attending/Attestation - Attestation I have personally seen and examined this patient.: Yes I have fully participated in the care of the patient.: Yes I have reviewed all pertinent clinical information, including history, physical exam and plan: Yes Notes (Text): 01/12/18 57 year old male with no know past medical history who was admitted with altered mental status. He was treated for right hip cellulitis, pneumonia and flu. He was also found to have strep viridans bacteremia for which he has completed course of iv antibiotics. Echocardiogram could not rule out vegetations. Family is not available to give consent for TAHIR. He was also found to have acute vs subacute infarct. He is on aspirin and statin. CT abd/pelvis showed colonic mass and liver lesions. At this time consent cannot be obtained for sigmoidoscopy or biopsy. Case management and social work coordinator are working on guardianship and disposition. Sixto Galo MD Hospitalist.
--- NOTE | 2018-01-13 18:12 | CP.PCM.PN ---
<Nikita Hurley - Last Filed: 01/13/18 18:12> Subjective - Date & Time of Evaluation Date of Evaluation: 01/13/18 Time of Evaluation: 09:30 - Subjective Subjective: Nikita Hurley DO, PGY-1 Hospitalist Service Patient seen and examined at bedside. Patient denies fever, chills, rash and any contact with his brother. Nurse reports patient did not get good sleep secondary to loud, crying patient on the floor. Objective - Vital Signs/Intake and Output Vital Signs (last 24 hours): Temp Pulse Resp BP Pulse Ox 99 F 99 H 20 119/72 99 01/13/18 16:00 01/13/18 16:00 01/13/18 16:00 01/13/18 16:00 01/13/18 16:00 Intake and Output: 01/13/18 01/13/18 06:59 18:59 Intake Total 480 Balance 480 - Medications Medications: Current Medications Amlodipine Besylate (Norvasc) 10 mg PO DAILY [facility] Last Admin: 01/13/18 09:20 Dose: 10 mg Aspirin (Ecotrin) 81 mg PO DAILY [facility] Last Admin: 01/13/18 09:21 Dose: 81 mg Atorvastatin Calcium (Lipitor) 20 mg PO DIN [facility] Last Admin: 01/13/18 17:40 Dose: 20 mg Citalopram Hydrobromide (Celexa) 10 mg PO DAILY [facility] Last Admin: 01/13/18 09:21 Dose: 10 mg Clotrimazole (Lotrimin Af 1%) 0 ml TOP BID [facility] Last Admin: 01/13/18 17:40 Dose: 1 applic Enoxaparin Sodium (Lovenox) 40 mg SC DAILY [facility] PRN Reason: Protocol Last Admin: 01/13/18 09:21 Dose: 40 mg Folic Acid (Folic Acid) 1 mg PO DAILY [facility] Last Admin: 01/13/18 09:21 Dose: 1 mg Hydralazine HCl (Apresoline) 10 mg IVP Q6 PRN PRN Reason: For SBP > 150 Last Admin: 12/13/17 08:32 Dose: 10 mg Insulin Detemir (Levemir) 10 unit SC [facility] Last Admin: 01/12/18 22:16 Dose: 10 unit Insulin Human Lispro (Humalog Low) 0 units SC [facility] PRN Reason: Protocol Last Admin: 01/13/18 17:40 Dose: 1 units Insulin Human Regular (Humulin R) 3 units SC AC [facility] Last Admin: 01/13/18 17:40 Dose: 3 units Lisinopril (Zestril) 10 mg PO DAILY [facility] Last Admin: 01/13/18 09:21 Dose: 10 mg Lorazepam (Ativan) 0.5 mg PO BID PRN; Protocol PRN Reason: anxiety and restlessness Multivitamins/Minerals (Therapeutic-M Tab) 1 tab PO 0800 [facility] Last Admin: 01/13/18 08:06 Dose: 1 tab Pantoprazole Sodium (Protonix Ec Tab) 40 mg PO 0600 [facility] Last Admin: 01/13/18 06:03 Dose: 40 mg Quetiapine Fumarate (Seroquel) 12.5 mg PO HS PRN; Protocol PRN Reason: Agitation Last Admin: 01/09/18 22:21 Dose: 12.5 mg Thiamine HCl (Vitamin B1 Tab) 100 mg PO DAILY [facility] Last Admin: 01/13/18 09:21 Dose: 100 mg Zinc Sulfate (Zinc Sulfate 220 Mg Cap) 220 mg PO DAILY [facility] Last Admin: 01/13/18 09:20 Dose: 220 mg - Labs Labs: 01/10/18 05:30 01/10/18 05:30 PT 12.5 SECONDS (9.4-12.5) 12/09/17 10:00 INR 1.09 (0.93-1.08) H 12/09/17 10:00 APTT 28.3 Seconds (25.1-36.5) 11/30/17 05:30 - Constitutional Appears: Non-toxic, No Acute Distress - Head Exam Head Exam: ATRAUMATIC, NORMOCEPHALIC - Eye Exam Eye Exam: EOMI, Normal appearance - ENT Exam ENT Exam: Mucous Membranes Moist - Neck Exam Neck Exam: Normal Inspection - Respiratory Exam Respiratory Exam: Clear to Ausculation Bilateral, NORMAL BREATHING PATTERN. absent: Accessory Muscle Use - Cardiovascular Exam Cardiovascular Exam: RRR, +S1, +S2 - GI/Abdominal Exam GI & Abdominal Exam: Soft, Normal Bowel Sounds - Extremities Exam Extremities Exam: Normal Inspection - Neurological Exam Neurological Exam: Alert, Awake Additional comments: oriented to place, but not to person or time - Psychiatric Exam Psychiatric exam: Normal Affect, Normal Mood - Skin Skin Exam: Dry, Intact, Normal Color, Warm Assessment and Plan - Assessment and Plan (Free Text) Assessment: 57 year old male with unknown past medical history who was brought in via EMS for AMS covered in feces in his apartment. 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 He is on IV ceftriaxone for his bacteremia and is pending Transesophageal Echocardiogram and colonoscopy to rule out endocarditis and colon cancer, respectively. Important to note, patient is unable to give consent for TAHIR and colonoscopy secondary to being not of decision-making capacity. Patient has completed antibiotic course Plan: 1) Demented: - Executive function is impaired - Continue with delirium precautions 2) Bacteremia with Strep Viridans/Mitis and Coag Neg Staph Bacteremia - Will continue to monitor WBC, ESR, and CRP weekly or more, if indicated -TAHIR to be done when consent can be obtained -Psychiatry, Cardiology, Neurology and ID consulted, all recommendations appreciated -PT/OT recommending JOSIAH upon discharge 3) Colonic Neoplasm -Flexible sigmoidoscopy/Colonoscopy to be done when consent can be obtained -GI consulted, all recommendations appreciated 4) Multifocal Pneumonia in the setting of recent Influenzae A infection -Continue with Ceftriaxone. 5) Ischemic Stroke -Continue ASA 81mg and Lipitor 20mg 6) History of Alcohol Abuse/Withdrawal - PO Folate,Thiamine, and Multivitamin supplements - Fall, Seizure, and Aspiration precautions 6) DM II -Blood glucose moderately controlled -Levemir 10 units HS -Added regular insulin 3u AC -Continue insulin lispart sliding scale low for additional coverage -Carb Consistent Diet 7) HTN - Continue Lisinopril 10mg - Norvasc 10mg PO daily 8) Sacral decubitus: resolved - Continue Q2h repositioning as patient tolerates - OOB to chair; patient is refusing. 9) Affective disorder, unspecified - Geodon PRN - Celexa 10 mg PO Daily - Seroquel HS - Ativan 0.5 mg BID [facility] - Psychiatry consulted, recommendations noted 10) GI/DVT prophylaxis - Protonix 40 daily - Lovenox 40 SC Disposition: The patient lack decision making capacity. He does not has understanding of his diagnosis, medical treatment, potential benefit and risk associated with and without treatment. The patient has multiple medical condition, getting treatment for possible endocarditis, gram positive bacteremia and colonic lesion could be malignant and CVA. Patient has dementia likely due to alcohol abuse. Patient does not has any behavior problem. Basically at this time, patient does not has capacity to make decision for himself. He need correction care and supervision at this time, need help in medication, feeding and change of position. Patient discussed and reviewed with attending Dr. Galo. <Sixto Galo - Last Filed: 01/14/18 07:30> Objective - Vital Signs/Intake and Output Vital Signs (last 24 hours): Temp Pulse Resp BP Pulse Ox 98.0 F 89 20 128/77 94 L 01/14/18 07:24 01/14/18 07:24 01/14/18 07:24 01/14/18 07:24 01/14/18 07:24 Intake and Output: 01/14/18 01/14/18 06:59 18:59 Intake Total 900 Balance 900 - Medications Medications: Current Medications Amlodipine Besylate (Norvasc) 10 mg PO DAILY [facility] Last Admin: 01/13/18 09:20 Dose: 10 mg Aspirin (Ecotrin) 81 mg PO DAILY [facility] Last Admin: 01/13/18 09:21 Dose: 81 mg Atorvastatin Calcium (Lipitor) 20 mg PO DIN [facility] Last Admin: 01/13/18 17:40 Dose: 20 mg Citalopram Hydrobromide (Celexa) 10 mg PO DAILY [facility] Last Admin: 01/13/18 09:21 Dose: 10 mg Clotrimazole (Lotrimin Af 1%) 0 ml TOP BID [facility] Last Admin: 01/13/18 17:40 Dose: 1 applic Enoxaparin Sodium (Lovenox) 40 mg SC DAILY [facility] PRN Reason: Protocol Last Admin: 01/13/18 09:21 Dose: 40 mg Folic Acid (Folic Acid) 1 mg PO DAILY [facility] Last Admin: 01/13/18 09:21 Dose: 1 mg Hydralazine HCl (Apresoline) 10 mg IVP Q6 PRN PRN Reason: For SBP > 150 Last Admin: 12/13/17 08:32 Dose: 10 mg Insulin Detemir (Levemir) 10 unit SC [facility] Last Admin: 01/13/18 22:15 Dose: 10 unit Insulin Human Lispro (Humalog Low) 0 units SC [facility] PRN Reason: Protocol Last Admin: 01/13/18 23:30 Dose: Not Given Insulin Human Regular (Humulin R) 3 units SC AC [facility] Last Admin: 01/13/18 17:40 Dose: 3 units Lisinopril (Zestril) 10 mg PO DAILY [facility] Last Admin: 01/13/18 09:21 Dose: 10 mg Lorazepam (Ativan) 0.5 mg PO BID PRN; Protocol PRN Reason: anxiety and restlessness Multivitamins/Minerals (Therapeutic-M Tab) 1 tab PO 0800 [facility] Last Admin: 01/13/18 08:06 Dose: 1 tab Pantoprazole Sodium (Protonix Ec Tab) 40 mg PO 0600 [facility] Last Admin: 01/14/18 06:48 Dose: 40 mg Quetiapine Fumarate (Seroquel) 12.5 mg PO HS PRN; Protocol PRN Reason: Agitation Last Admin: 01/09/18 22:21 Dose: 12.5 mg Thiamine HCl (Vitamin B1 Tab) 100 mg PO DAILY [facility] Last Admin: 01/13/18 09:21 Dose: 100 mg Zinc Sulfate (Zinc Sulfate 220 Mg Cap) 220 mg PO DAILY [facility] Last Admin: 01/13/18 09:20 Dose: 220 mg - Labs Labs: 01/10/18 05:30 01/10/18 05:30 PT 12.5 SECONDS (9.4-12.5) 12/09/17 10:00 INR 1.09 (0.93-1.08) H 12/09/17 10:00 APTT 28.3 Seconds (25.1-36.5) 11/30/17 05:30 Attending/Attestation - Attestation I have personally seen and examined this patient.: Yes I have fully participated in the care of the patient.: Yes I have reviewed all pertinent clinical information, including history, physical exam and plan: Yes Notes (Text): 01/13/18 57 year old male with no know past medical history who was admitted with altered mental status. He was treated for right hip cellulitis, pneumonia and flu earlier during this admission. He was also found to have strep viridans bacteremia for which he has completed course of iv antibiotics. Echocardiogram could not rule out vegetations. Family is not available to give consent for TAHIR. He was also found to have acute vs subacute infarct. He is on aspirin and statin. PT recommends JOSIAH. CT abd/pelvis showed colonic mass and liver lesions. At this time consent cannot be obtained for sigmoidoscopy or biopsy. Case management and social service technician are working on guardianship and disposition. Sixto Galo MD Hospitalist.
[2018-01-13] MEDS: Insulin Detemir 100 units/ml Vial (Levemir) SC SCH (22:15)
--- NOTE | 2018-01-13 23:07 | PN ---
DATE: 01/13/2018 SUBJECTIVE: Patient was seen earlier this morning in room 363, bed 1. No fevers. No chills. No nausea. OBJECTIVE: VITAL SIGNS: Temperature is 98, blood pressure is 129/90, respiratory rate is 20. HEENT: Unremarkable. NECK: Supple. LUNGS: Have decreased breath sounds. HEART: Normal S1, S2. ABDOMEN: Soft, nontender. LABORATORY EXAMINATION: Reveals the white count of 9.3, hemoglobin of 11, platelets of 282. BUN of 13 and creatinine of 0.5. C-reactive protein is greater than 16. ASSESSMENT AND PLAN: A 57-year-old male with sepsis due to Streptococcus viridans, coagulase-negative Staphylococcus bacteremia, right gluteal and back cellulitis, status post multifocal healthcare-associated on top of influenza and completed the ceftriaxone therapy over 43 days. Currently off of antibiotics. We will follow closely with you. Daniel Torres MD
[2018-01-14] MEDS: Pantoprazole 40 mg EC Tab PO SCH (06:48)
[2018-01-14] MEDS: Insulin Lispro (humaLOG) LOW Coverage SC SCH ×4 (08:23→21:58)
[2018-01-14] MEDS: Insulin Regular 1 UNITS/0.01 ML ML SC SCH ×3 (08:23→17:29)
[2018-01-14] MEDS: Multivitamin With Minerals Tab PO SCH (08:24)
[2018-01-14] MEDS: Enoxaparin 40 mg Syringe SC SCH (09:08)
[2018-01-14] MEDS: Clotrimazole 1% Top Soln(10 ml) TOP SCH (09:10)
--- NOTE | 2018-01-14 15:16 | CP.PCM.PN ---
<Nikita Hurley - Last Filed: 01/14/18 15:31> Subjective - Date & Time of Evaluation Date of Evaluation: 01/14/18 Time of Evaluation: 07:05 - Subjective Subjective: Nikita Hurley DO, PGY-1 Hospitalist Service Patient seen and examined at bedside. Patient denies fever, chills, rash and any contact with his brother. Nurse reports no events overnight. Objective - Vital Signs/Intake and Output Vital Signs (last 24 hours): Temp Pulse Resp BP Pulse Ox 98.0 F 89 20 121/70 94 L 01/14/18 07:24 01/14/18 07:24 01/14/18 07:24 01/14/18 09:11 01/14/18 07:24 Intake and Output: 01/14/18 01/14/18 06:59 18:59 Intake Total 900 Balance 900 - Medications Medications: Current Medications Amlodipine Besylate (Norvasc) 10 mg PO DAILY [facility] Last Admin: 01/14/18 09:11 Dose: 10 mg Aspirin (Ecotrin) 81 mg PO DAILY [facility] Last Admin: 01/14/18 09:08 Dose: 81 mg Atorvastatin Calcium (Lipitor) 20 mg PO DIN [facility] Last Admin: 01/13/18 17:40 Dose: 20 mg Citalopram Hydrobromide (Celexa) 10 mg PO DAILY [facility] Last Admin: 01/14/18 09:08 Dose: 10 mg Clotrimazole (Lotrimin Af 1%) 0 ml TOP BID [facility] Last Admin: 01/14/18 09:10 Dose: 1 applic Enoxaparin Sodium (Lovenox) 40 mg SC DAILY [facility] PRN Reason: Protocol Last Admin: 01/14/18 09:08 Dose: 40 mg Folic Acid (Folic Acid) 1 mg PO DAILY [facility] Last Admin: 01/14/18 09:09 Dose: 1 mg Hydralazine HCl (Apresoline) 10 mg IVP Q6 PRN PRN Reason: For SBP > 150 Last Admin: 12/13/17 08:32 Dose: 10 mg Insulin Detemir (Levemir) 10 unit SC [facility] Last Admin: 01/13/18 22:15 Dose: 10 unit Insulin Human Lispro (Humalog Low) [address] [facility] PRN Reason: Protocol Last Admin: 01/14/18 12:47 Dose: 1 units Insulin Human Regular (Humulin R) 3 units SC AC [facility] Last Admin: 01/14/18 12:45 Dose: 3 units Lisinopril (Zestril) 10 mg PO DAILY [facility] Last Admin: 01/14/18 09:08 Dose: 10 mg Lorazepam (Ativan) 0.5 mg PO BID PRN; Protocol PRN Reason: anxiety and restlessness Multivitamins/Minerals (Therapeutic-M Tab) 1 tab PO 0800 [facility] Last Admin: 01/14/18 08:24 Dose: 1 tab Pantoprazole Sodium (Protonix Ec Tab) 40 mg PO 0600 [facility] Last Admin: 01/14/18 06:48 Dose: 40 mg Quetiapine Fumarate (Seroquel) 12.5 mg PO HS PRN; Protocol PRN Reason: Agitation Last Admin: 01/09/18 22:21 Dose: 12.5 mg Thiamine HCl (Vitamin B1 Tab) 100 mg PO DAILY [facility] Last Admin: 01/14/18 09:08 Dose: 100 mg Zinc Sulfate (Zinc Sulfate 220 Mg Cap) 220 mg PO DAILY [facility] Last Admin: 01/14/18 09:08 Dose: 220 mg - Labs Labs: 01/10/18 05:30 01/10/18 05:30 PT 12.5 SECONDS (9.4-12.5) 12/09/17 10:00 INR 1.09 (0.93-1.08) H 12/09/17 10:00 APTT 28.3 Seconds (25.1-36.5) 11/30/17 05:30 - Constitutional Appears: Well, Non-toxic - Head Exam Head Exam: ATRAUMATIC, NORMOCEPHALIC - Eye Exam Eye Exam: EOMI, Normal appearance - ENT Exam ENT Exam: Mucous Membranes Moist, Normal Oropharynx - Neck Exam Neck Exam: Normal Inspection - Respiratory Exam Respiratory Exam: Clear to Ausculation Bilateral, NORMAL BREATHING PATTERN. absent: Accessory Muscle Use - Cardiovascular Exam Cardiovascular Exam: RRR, +S1, +S2 - GI/Abdominal Exam GI & Abdominal Exam: Soft, Normal Bowel Sounds. absent: Guarding, Rebound - Extremities Exam Extremities Exam: Normal Inspection - Back Exam Back Exam: absent: CVA tenderness (L), CVA tenderness (R) - Neurological Exam Neurological Exam: Alert, Awake, Oriented x3 - Psychiatric Exam Psychiatric exam: Normal Affect, Normal Mood - Skin Skin Exam: Dry, Intact, Normal Color, Warm Assessment and Plan - Assessment and Plan (Free Text) Assessment: 57 year old male with unknown past medical history who was brought in via EMS for AMS covered in feces in his apartment. 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 He is on IV ceftriaxone for his bacteremia and is pending Transesophageal Echocardiogram and colonoscopy to rule out endocarditis and colon cancer, respectively. Important to note, patient is unable to give consent for TAHIR and colonoscopy secondary to being not of decision-making capacity. Patient has completed antibiotic course. Plan: 1) AMS resolved - Executive function is improved - Continue with delirium precautions 2) Bacteremia with Strep Viridans/Mitis and Coag Neg Staph Bacteremia - Will continue to monitor WBC, ESR, and CRP weekly or more, if indicated -ATHIR to be done when consent can be obtained -Psychiatry, Cardiology, Neurology and ID consulted, all recommendations appreciated -PT/OT recommending JOSIAH upon discharge 3) Colonic Neoplasm -Flexible sigmoidoscopy/Colonoscopy to be done when consent can be obtained -GI consulted, all recommendations appreciated 4) Multifocal Pneumonia in the setting of recent Influenzae A infection -Continue with Ceftriaxone. 5) Ischemic Stroke -Continue ASA 81mg and Lipitor 20mg 6) History of Alcohol Abuse/Withdrawal - PO Folate,Thiamine, and Multivitamin supplements - Fall, Seizure, and Aspiration precautions 6) DM II -Blood glucose moderately controlled -Levemir 10 units HS -Added regular insulin 3u AC -Continue insulin lispart sliding scale low for additional coverage -Carb Consistent Diet 7) HTN - Continue Lisinopril 10mg - Norvasc 10mg PO daily 8) Sacral decubitus: resolved - Continue Q2h repositioning as patient tolerates - OOB to chair; patient is refusing. 9) Affective disorder, unspecified - Geodon PRN - Celexa 10 mg PO Daily - Seroquel HS - Ativan 0.5 mg BID [facility] - Psychiatry consulted, recommendations noted 10) GI/DVT prophylaxis - Protonix 40 daily - Lovenox 40 SC Disposition: The patient lack decision making capacity. He does not has understanding of his diagnosis, medical treatment, potential benefit and risk associated with and without treatment. The patient has multiple medical condition, getting treatment for possible endocarditis, gram positive bacteremia and colonic lesion could be malignant and CVA. Patient has dementia likely due to alcohol abuse. Patient does not has any behavior problem. Basically at this time, patient does not has capacity to make decision for himself. 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 Patient discussed and reviewed with attending Dr. Galo. <Sixto Galo - Last Filed: 01/14/18 16:50> Objective - Vital Signs/Intake and Output Vital Signs (last 24 hours): Temp Pulse Resp BP Pulse Ox 98.0 F 89 20 121/70 94 L 01/14/18 07:24 01/14/18 07:24 01/14/18 07:24 01/14/18 09:11 01/14/18 07:24 Intake and Output: 01/14/18 01/14/18 06:59 18:59 Intake Total 900 Balance 900 - Medications Medications: Current Medications Amlodipine Besylate (Norvasc) 10 mg PO DAILY [facility] Last Admin: 01/14/18 09:11 Dose: 10 mg Aspirin (Ecotrin) 81 mg PO DAILY [facility] Last Admin: 01/14/18 09:08 Dose: 81 mg Atorvastatin Calcium (Lipitor) 20 mg PO DIN [facility] Last Admin: 01/13/18 17:40 Dose: 20 mg Citalopram Hydrobromide (Celexa) 10 mg PO DAILY [facility] Last Admin: 01/14/18 09:08 Dose: 10 mg Clotrimazole (Lotrimin Af 1%) 0 ml TOP BID [facility] Last Admin: 01/14/18 09:10 Dose: 1 applic Enoxaparin Sodium (Lovenox) 40 mg SC DAILY [facility] PRN Reason: Protocol Last Admin: 01/14/18 09:08 Dose: 40 mg Folic Acid (Folic Acid) 1 mg PO DAILY [facility] Last Admin: 01/14/18 09:09 Dose: 1 mg Hydralazine HCl (Apresoline) 10 mg IVP Q6 PRN PRN Reason: For SBP > 150 Last Admin: 12/13/17 08:32 Dose: 10 mg Insulin Detemir (Levemir) 10 unit SC HS [facility] Last Admin: 01/13/18 22:15 Dose: 10 unit Insulin Human Lispro (Humalog Low) 0 units SC ACHS [facility] PRN Reason: Protocol Last Admin: 01/14/18 12:47 Dose: 1 units Insulin Human Regular (Humulin R) 3 units SC AC [facility] Last Admin: 01/14/18 12:45 Dose: 3 units Lisinopril (Zestril) 10 mg PO DAILY [facility] Last Admin: 01/14/18 09:08 Dose: 10 mg Lorazepam (Ativan) 0.5 mg PO BID PRN; Protocol PRN Reason: anxiety and restlessness Multivitamins/Minerals (Therapeutic-M Tab) 1 tab PO 0800 [facility] Last Admin: 01/14/18 08:24 Dose: 1 tab Pantoprazole Sodium (Protonix Ec Tab) 40 mg PO 0600 [facility] Last Admin: 01/14/18 06:48 Dose: 40 mg Quetiapine Fumarate (Seroquel) 12.5 mg PO HS PRN; Protocol PRN Reason: Agitation Last Admin: 01/09/18 22:21 Dose: 12.5 mg Thiamine HCl (Vitamin B1 Tab) 100 mg PO DAILY [facility] Last Admin: 01/14/18 09:08 Dose: 100 mg Zinc Sulfate (Zinc Sulfate 220 Mg Cap) 220 mg PO DAILY [facility] Last Admin: 01/14/18 09:08 Dose: 220 mg - Labs Labs: 01/10/18 05:30 01/10/18 05:30 PT 12.5 SECONDS (9.4-12.5) 12/09/17 10:00 INR 1.09 (0.93-1.08) H 12/09/17 10:00 APTT 28.3 Seconds (25.1-36.5) 11/30/17 05:30 Attending/Attestation - Attestation I have personally seen and examined this patient.: Yes I have fully participated in the care of the patient.: Yes I have reviewed all pertinent clinical information, including history, physical exam and plan: Yes Notes (Text): 01/14/18 16:49 57 year old male with no know past medical history who was admitted with altered mental status. He was treated for right hip cellulitis, pneumonia and flu earlier during this admission. He was also found to have strep viridans bacteremia for which he has completed course of iv antibiotics. Echocardiogram could not rule out vegetations. Family is not available to give consent for TAHIR. He was also found to have acute vs subacute infarct. He is on aspirin and statin. PT recommends JOSIAH. CT abd/pelvis showed colonic mass and liver lesions. At this time consent cannot be obtained for sigmoidoscopy or biopsy. Case management and social services director are working on guardianship and disposition. Continue with PT and out of bed to chair. Sixto Galo MD Hospitalist.
[2018-01-14] MEDS: Insulin Detemir 100 units/ml Vial (Levemir) SC SCH (21:59)
--- NOTE | 2018-01-14 23:02 | CP.PCM.PN ---
Subjective - Date & Time of Evaluation Date of Evaluation: 01/14/18 Time of Evaluation: 09:50 - Subjective Subjective: Comfortable, afebrile, not in distress. Objective - Vital Signs/Intake and Output Vital Signs (last 24 hours): Temp Pulse Resp BP Pulse Ox 98.0 F 89 20 121/70 94 L 01/14/18 07:24 01/14/18 07:24 01/14/18 07:24 01/14/18 09:11 01/14/18 07:24 Intake and Output: 01/14/18 01/14/18 06:59 18:59 Intake Total 900 Balance 900 - Medications Medications: Current Medications Amlodipine Besylate (Norvasc) 10 mg PO DAILY [facility] Last Admin: 01/14/18 09:11 Dose: 10 mg Aspirin (Ecotrin) 81 mg PO DAILY [facility] Last Admin: 01/14/18 09:08 Dose: 81 mg Atorvastatin Calcium (Lipitor) 20 mg PO DIN [facility] Last Admin: 01/13/18 17:40 Dose: 20 mg Citalopram Hydrobromide (Celexa) 10 mg PO DAILY [facility] Last Admin: 01/14/18 09:08 Dose: 10 mg Clotrimazole (Lotrimin Af 1%) 0 ml TOP BID [facility] Last Admin: 01/14/18 09:10 Dose: 1 applic Enoxaparin Sodium (Lovenox) 40 mg SC DAILY [facility] PRN Reason: Protocol Last Admin: 01/14/18 09:08 Dose: 40 mg Folic Acid (Folic Acid) 1 mg PO DAILY [facility] Last Admin: 01/14/18 09:09 Dose: 1 mg Hydralazine HCl (Apresoline) 10 mg IVP Q6 PRN PRN Reason: For SBP > 150 Last Admin: 12/13/17 08:32 Dose: 10 mg Insulin Detemir (Levemir) 10 unit SC HS [facility] Last Admin: 01/13/18 22:15 Dose: 10 unit Insulin Human Lispro (Humalog Low) 0 units SC ACHS [facility] PRN Reason: Protocol Last Admin: 01/14/18 08:23 Dose: 1 units Insulin Human Regular (Humulin R) 3 units SC AC [facility] Last Admin: 01/14/18 08:23 Dose: 3 units Lisinopril (Zestril) 10 mg PO DAILY [facility] Last Admin: 01/14/18 09:08 Dose: 10 mg Lorazepam (Ativan) 0.5 mg PO BID PRN; Protocol PRN Reason: anxiety and restlessness Multivitamins/Minerals (Therapeutic-M Tab) 1 tab PO 0800 [facility] Last Admin: 01/14/18 08:24 Dose: 1 tab Pantoprazole Sodium (Protonix Ec Tab) 40 mg PO 0600 [facility] Last Admin: 01/14/18 06:48 Dose: 40 mg Quetiapine Fumarate (Seroquel) 12.5 mg PO HS PRN; Protocol PRN Reason: Agitation Last Admin: 01/09/18 22:21 Dose: 12.5 mg Thiamine HCl (Vitamin B1 Tab) 100 mg PO DAILY [facility] Last Admin: 01/14/18 09:08 Dose: 100 mg Zinc Sulfate (Zinc Sulfate 220 Mg Cap) 220 mg PO DAILY [facility] Last Admin: 01/14/18 09:08 Dose: 220 mg - Labs Labs: 01/10/18 05:30 01/10/18 05:30 PT 12.5 SECONDS (9.4-12.5) 12/09/17 10:00 INR 1.09 (0.93-1.08) H 12/09/17 10:00 APTT 28.3 Seconds (25.1-36.5) 11/30/17 05:30 - Constitutional Appears: Chronically Ill - Head Exam Head Exam: NORMAL INSPECTION - ENT Exam ENT Exam: Mucous Membranes Moist - Neck Exam Neck Exam: absent: Meningismus - Respiratory Exam Respiratory Exam: Decreased Breath Sounds - Cardiovascular Exam Cardiovascular Exam: +S1, +S2 - GI/Abdominal Exam GI & Abdominal Exam: Soft. absent: Tenderness Assessment and Plan - Assessment and Plan (Free Text) Plan: Assessment S/P sepsis due to strep viridans and CoNS bacteremia from right gluteal and back cellulitis S/P multifocal HCAP on top of Influenza A infection R/O Sammie infection of sacral area as well Plan completed 42 days of antibiotics - continue to monitor clinically
[2018-01-15] MEDS: Pantoprazole 40 mg EC Tab PO SCH (05:50)
[2018-01-15] MEDS: Insulin Lispro (humaLOG) LOW Coverage SC SCH ×4 (10:01→21:52)
[2018-01-15] MEDS: Enoxaparin 40 mg Syringe SC SCH (10:02)
[2018-01-15] MEDS: Insulin Regular 1 UNITS/0.01 ML ML SC SCH ×3 (10:02→18:24)
[2018-01-15] MEDS: Multivitamin With Minerals Tab PO SCH (10:06)
[2018-01-15] MEDS: Clotrimazole 1% Top Soln(10 ml) TOP SCH ×4 (10:27→18:28)
--- NOTE | 2018-01-15 17:37 | CP.PCM.PN ---
<KarenRinkucatalinoedie - Last Filed: 01/15/18 17:30> Subjective - Date & Time of Evaluation Date of Evaluation: 01/15/18 Time of Evaluation: 07:30 - Subjective Subjective: Hardeep Jones DO PGy1 - IM Progress Note Patient seen and examined at bedside. Per nursing staff, no acute events overnight. Patient denies any somatic complaints at this time. Pending state guardianship for placement. Objective - Vital Signs/Intake and Output Vital Signs (last 24 hours): Temp Pulse Resp BP Pulse Ox 97.6 F 92 H 19 123/73 96 01/14/18 16:00 01/14/18 16:00 01/14/18 16:00 01/15/18 10:02 01/14/18 16:00 Intake and Output: 01/15/18 01/15/18 06:59 18:59 Intake Total 120 Balance 120 - Medications Medications: Current Medications Amlodipine Besylate (Norvasc) 10 mg PO DAILY [facility] Last Admin: 01/15/18 10:02 Dose: 10 mg Aspirin (Ecotrin) 81 mg PO DAILY [facility] Last Admin: 01/15/18 10:00 Dose: 81 mg Atorvastatin Calcium (Lipitor) 20 mg PO DIN [facility] Last Admin: 01/14/18 17:30 Dose: 20 mg Citalopram Hydrobromide (Celexa) 10 mg PO DAILY [facility] Last Admin: 01/15/18 10:00 Dose: 10 mg Clotrimazole (Lotrimin Af 1%) 0 ml TOP BID [facility] Last Admin: 01/14/18 09:10 Dose: 1 applic Enoxaparin Sodium (Lovenox) 40 mg SC DAILY [facility] PRN Reason: Protocol Last Admin: 01/15/18 10:02 Dose: 40 mg Folic Acid (Folic Acid) 1 mg PO DAILY [facility] Last Admin: 01/15/18 10:00 Dose: 1 mg Hydralazine HCl (Apresoline) 10 mg IVP Q6 PRN PRN Reason: For SBP > 150 Last Admin: 12/13/17 08:32 Dose: 10 mg Insulin Detemir (Levemir) 12 unit SC HS [facility] Insulin Human Lispro (Humalog Low) 0 units SC ACHS [facility] PRN Reason: Protocol Last Admin: 01/15/18 12:33 Dose: 1 units Insulin Human Regular (Humulin R) 3 units SC AC [facility] Last Admin: 01/15/18 12:34 Dose: 3 units Lisinopril (Zestril) 10 mg PO DAILY [facility] Last Admin: 01/15/18 10:03 Dose: 10 mg Lorazepam (Ativan) 0.5 mg PO BID PRN; Protocol PRN Reason: anxiety and restlessness Multivitamins/Minerals (Therapeutic-M Tab) 1 tab PO 0800 [facility] Last Admin: 01/15/18 10:06 Dose: 1 tab Pantoprazole Sodium (Protonix Ec Tab) 40 mg PO 0600 [facility] Last Admin: 01/15/18 05:50 Dose: 40 mg Quetiapine Fumarate (Seroquel) 12.5 mg PO HS PRN; Protocol PRN Reason: Agitation Last Admin: 01/09/18 22:21 Dose: 12.5 mg Thiamine HCl (Vitamin B1 Tab) 100 mg PO DAILY [facility] Last Admin: 01/15/18 10:03 Dose: 100 mg Zinc Sulfate (Zinc Sulfate 220 Mg Cap) 220 mg PO DAILY [facility] Last Admin: 01/15/18 10:03 Dose: 220 mg - Labs Labs: 01/10/18 05:30 01/10/18 05:30 PT 12.5 SECONDS (9.4-12.5) 12/09/17 10:00 INR 1.09 (0.93-1.08) H 12/09/17 10:00 APTT 28.3 Seconds (25.1-36.5) 11/30/17 05:30 - Additional Findings Additional findings: - Constitutional Appears: Well, Non-toxic - Head Exam Head Exam: ATRAUMATIC, NORMOCEPHALIC - Eye Exam Eye Exam: EOMI, Normal appearance - ENT Exam ENT Exam: Mucous Membranes Moist, Normal Oropharynx - Neck Exam Neck Exam: Normal Inspection - Respiratory Exam Respiratory Exam: Clear to Ausculation Bilateral, NORMAL BREATHING PATTERN. absent: Accessory Muscle Use - Cardiovascular Exam Cardiovascular Exam: RRR, +S1, +S2 - GI/Abdominal Exam GI & Abdominal Exam: Soft, Normal Bowel Sounds. absent: Guarding, Rebound - Extremities Exam Extremities Exam: Normal Inspection - Back Exam Back Exam: absent: CVA tenderness (L), CVA tenderness (R) - Neurological Exam Neurological Exam: Alert, Awake. Difficult to assess orientation. Patient responding appropriately to questions, though mostly with one word answers. Able to obey simple commands and some complex commands. - Psychiatric Exam Psychiatric exam: Flat affect. Depressed mood. - Skin Skin Exam: Dry, Intact, Normal Color, Warm Assessment and Plan - Assessment and Plan (Free Text) Assessment: 57 year old male with unknown past medical history who was brought in via EMS for AMS covered in feces in his apartment. 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 He completed course of IV ceftriaxone for his bacteremia and is pending Transesophageal Echocardiogram and colonoscopy to rule out endocarditis and colon cancer, respectively. Important to note, patient is unable to give consent for TAHIR and colonoscopy secondary to being not of decision-making capacity. Pending state guardianship for further placement. Plan: 1) AMS resolved - Executive function is improved - Continue with delirium precautions - Patient able to follow some complex commands; shows total lack of motivation for even simple tasks; answers most questions with only one-word answers; unable to care for himself or get out of bed on his own 2) Bacteremia with Strep Viridans/Mitis and Coag Neg Staph Bacteremia - Blood cultures negative since 12/04/17 - Completed 6 week course of antibiotics - Will continue to monitor WBC, ESR, and CRP weekly or more, if indicated - TAHIR to be done when consent can be obtained - Psychiatry, Cardiology, Neurology and ID consulted, all recommendations appreciated - PT/OT recommending JOSIAH upon discharge 3) Colonic Neoplasm -Flexible sigmoidoscopy/Colonoscopy to be done when consent can be obtained -GI consulted, all recommendations appreciated 4) Multifocal Pneumonia in the setting of recent Influenzae A infection - Completed course of antibiotics; no cough or shortness of breath; lung exam unremarkable 5) Ischemic Stroke - Continue ASA 81mg and Lipitor 20mg 6) History of Alcohol Abuse/Withdrawal - PO Folate,Thiamine, and Multivitamin supplements - Fall, Seizure, and Aspiration precautions 6) DM II -Blood glucose moderately controlled -Levemir increased to 12 units HS -Continue regular insulin 3u AC -Continue insulin lispart sliding scale low for additional coverage -Carb Consistent Diet 7) HTN - Continue Lisinopril 10mg - Norvasc 10mg PO daily 8) Sacral decubitus: resolved - Continue Q2h repositioning as patient tolerates - OOB to chair; patient is refusing. 9) Affective disorder, unspecified - Geodon PRN - Celexa 10 mg PO Daily - Seroquel HS - Ativan 0.5 mg BID [facility] - Psychiatry consulted, recommendations noted 10) GI/DVT prophylaxis - Protonix 40 daily - Lovenox 40 SC Disposition: The patient lack decision making capacity. He does not has understanding of his diagnosis, medical treatment, potential benefit and risk associated with and without treatment. The patient has multiple medical condition, getting treatment for possible endocarditis, gram positive bacteremia and colonic lesion could be malignant and CVA. Patient has dementia likely due to alcohol abuse. Patient does not has any behavior problem. Basically at this time, patient does not has capacity to make decision for himself. He need usp care and supervision at this time, need help in medication, feeding and change of position. Patient discussed and reviewed with attending Dr. Galo. <Sixto Galo - Last Filed: 01/16/18 07:18> Objective - Vital Signs/Intake and Output Vital Signs (last 24 hours): Temp Pulse Resp BP Pulse Ox 97.6 F 92 H 19 123/73 96 01/14/18 16:00 01/14/18 16:00 01/14/18 16:00 01/15/18 10:02 01/14/18 16:00 Intake and Output: 01/16/18 01/16/18 06:59 18:59 Intake Total 900 Output Total 0 Balance 900 - Medications Medications: Current Medications Amlodipine Besylate (Norvasc) 10 mg PO DAILY [facility] Last Admin: 01/15/18 10:02 Dose: 10 mg Aspirin (Ecotrin) 81 mg PO DAILY [facility] Last Admin: 01/15/18 10:00 Dose: 81 mg Atorvastatin Calcium (Lipitor) 20 mg PO DIN [facility] Last Admin: 01/15/18 18:25 Dose: 20 mg Citalopram Hydrobromide (Celexa) 10 mg PO DAILY [facility] Last Admin: 01/15/18 10:00 Dose: 10 mg Clotrimazole (Lotrimin Af 1%) 0 ml TOP BID [facility] Last Admin: 01/15/18 18:28 Dose: 1 applic Enoxaparin Sodium (Lovenox) 40 mg SC DAILY [facility] PRN Reason: Protocol Last Admin: 01/15/18 10:02 Dose: 40 mg Folic Acid (Folic Acid) 1 mg PO DAILY [facility] Last Admin: 01/15/18 10:00 Dose: 1 mg Hydralazine HCl (Apresoline) 10 mg IVP Q6 PRN PRN Reason: For SBP > 150 Last Admin: 12/13/17 08:32 Dose: 10 mg Insulin Detemir (Levemir) 12 unit SC HS [facility] Last Admin: 01/15/18 21:51 Dose: 12 unit Insulin Human Lispro (Humalog Low) 0 units SC ACHS [facility] PRN Reason: Protocol Last Admin: 01/15/18 21:52 Dose: Not Given Insulin Human Regular (Humulin R) 3 units SC AC [facility] Last Admin: 01/15/18 18:24 Dose: 3 units Lisinopril (Zestril) 10 mg PO DAILY [facility] Last Admin: 01/15/18 10:03 Dose: 10 mg Lorazepam (Ativan) 0.5 mg PO BID PRN; Protocol PRN Reason: anxiety and restlessness Multivitamins/Minerals (Therapeutic-M Tab) 1 tab PO 0800 [facility] Last Admin: 01/15/18 10:06 Dose: 1 tab Pantoprazole Sodium (Protonix Ec Tab) 40 mg PO 0600 [facility] Last Admin: 01/16/18 06:01 Dose: 40 mg Quetiapine Fumarate (Seroquel) 12.5 mg PO HS PRN; Protocol PRN Reason: Agitation Last Admin: 01/09/18 22:21 Dose: 12.5 mg Thiamine HCl (Vitamin B1 Tab) 100 mg PO DAILY [facility] Last Admin: 01/15/18 10:03 Dose: 100 mg Zinc Sulfate (Zinc Sulfate 220 Mg Cap) 220 mg PO DAILY [facility] Last Admin: 01/15/18 10:03 Dose: 220 mg - Labs Labs: 01/10/18 05:30 01/10/18 05:30 PT 12.5 SECONDS (9.4-12.5) 12/09/17 10:00 INR 1.09 (0.93-1.08) H 12/09/17 10:00 APTT 28.3 Seconds (25.1-36.5) 11/30/17 05:30 Attending/Attestation - Attestation I have personally seen and examined this patient.: Yes I have fully participated in the care of the patient.: Yes I have reviewed all pertinent clinical information, including history, physical exam and plan: Yes Notes (Text): 01/15/18 57 year old male with no know past medical history who was admitted with altered mental status. He was treated for right hip cellulitis, pneumonia and flu earlier during this admission. He was also found to have strep viridans bacteremia for which he has completed course of iv antibiotics. Echocardiogram could not rule out vegetations. Family is not available to give consent for TAHIR. He was also found to have acute vs subacute infarct. He is on aspirin and statin. PT recommends JOSIAH. CT abd/pelvis showed colonic mass and liver lesions. At this time consent cannot be obtained for sigmoidoscopy or biopsy. He is on levemir and insulin ss for diabetes. Case management and social work coordinator are working on guardianship and disposition. Sixto Galo MD Hospitalist.
[2018-01-15] MEDS: Insulin Detemir 100 units/ml Vial (Levemir) SC SCH (21:51)
--- NOTE | 2018-01-16 00:12 | PN ---
DATE: 01/15/2018 SUBJECTIVE: The patient is seen early this morning, in room 363, bed 1. No fevers and chills. PHYSICAL EXAMINATION: VITAL SIGNS: Temperature is 98, blood pressure is 120/70, respiratory rate of 16. HEENT: Unremarkable. NECK: Supple. LUNGS: Have decreased breath sounds. HEART: Normal S1, S2. ABDOMEN: Soft, nontender. LABORATORY EXAMINATION: Reveals a white count of 9.3, hemoglobin of 11, platelets of 282. Chemistries reveal a BUN of , creatinine of 0.5. Review of orders reveals the patient to be currently off of antibiotics. Dr. Woodruff's note is reviewed. ASSESSMENT AND PLAN: This is a 57-year-old with sepsis due to Streptococcus viridans and coagulase-negative Staphylococcus bacteremia from right gluteal and back cellulitis, status post multifocal healthcare-associated on top of influenza infection, has completed 2 days of antibiotics. He is currently off of antibiotics, and following with you closely. Daniel Torres MD
[2018-01-16] MEDS: Pantoprazole 40 mg EC Tab PO SCH (06:01)
[2018-01-16] MEDS: Insulin Lispro (humaLOG) LOW Coverage SC SCH ×4 (08:18→21:32)
[2018-01-16] MEDS: Multivitamin With Minerals Tab PO SCH (08:44)
[2018-01-16] MEDS: Insulin Regular 1 UNITS/0.01 ML ML SC SCH ×3 (08:47→17:27)
[2018-01-16] MEDS: Enoxaparin 40 mg Syringe SC SCH (09:32)
[2018-01-16] MEDS: Clotrimazole 1% Top Soln(10 ml) TOP SCH ×2 (09:32→17:28)
--- NOTE | 2018-01-16 11:52 | CP.PCM.PN ---
<Hardeep Jones - Last Filed: 01/16/18 11:49> Subjective - Date & Time of Evaluation Date of Evaluation: 01/16/18 Time of Evaluation: 07:30 - Subjective Subjective: Hardeep Jones DO PGy1 - IM Progress Note Patient seen and examined at bedside. Per nursing staff, no acute events overnight. Patient denies any somatic complaints at this time. Pending state guardianship for placement. Objective - Vital Signs/Intake and Output Vital Signs (last 24 hours): Temp Pulse Resp BP Pulse Ox 98.3 F 90 20 115/77 94 L 01/16/18 06:00 01/16/18 09:33 01/16/18 06:00 01/16/18 09:33 01/16/18 06:00 Intake and Output: 01/16/18 01/16/18 06:59 18:59 Intake Total 900 Output Total 0 Balance 900 - Medications Medications: Current Medications Amlodipine Besylate (Norvasc) 10 mg PO DAILY [facility] Last Admin: 01/16/18 09:32 Dose: 10 mg Aspirin (Ecotrin) 81 mg PO DAILY [facility] Last Admin: 01/16/18 09:32 Dose: 81 mg Atorvastatin Calcium (Lipitor) 20 mg PO DIN [facility] Last Admin: 01/15/18 18:25 Dose: 20 mg Citalopram Hydrobromide (Celexa) 10 mg PO DAILY [facility] Last Admin: 01/16/18 09:32 Dose: 10 mg Clotrimazole (Lotrimin Af 1%) 0 ml TOP BID [facility] Last Admin: 01/16/18 09:32 Dose: 1 applic Enoxaparin Sodium (Lovenox) 40 mg SC DAILY [facility] PRN Reason: Protocol Last Admin: 01/16/18 09:32 Dose: 40 mg Folic Acid (Folic Acid) 1 mg PO DAILY [facility] Last Admin: 01/16/18 09:32 Dose: 1 mg Insulin Detemir (Levemir) 12 unit SC HS [facility] Last Admin: 01/15/18 21:51 Dose: 12 unit Insulin Human Lispro (Humalog Low) 0 units SC ACHS [facility] PRN Reason: Protocol Last Admin: 01/16/18 08:18 Dose: Not Given Insulin Human Regular (Humulin R) 3 units SC AC [facility] Last Admin: 01/16/18 08:47 Dose: 3 units Lisinopril (Zestril) 10 mg PO DAILY [facility] Last Admin: 01/16/18 09:33 Dose: 10 mg Lorazepam (Ativan) 0.5 mg PO BID PRN; Protocol PRN Reason: anxiety and restlessness Multivitamins/Minerals (Therapeutic-M Tab) 1 tab PO 0800 [facility] Last Admin: 01/16/18 08:44 Dose: 1 tab Pantoprazole Sodium (Protonix Ec Tab) 40 mg PO 0600 [facility] Last Admin: 01/16/18 06:01 Dose: 40 mg Quetiapine Fumarate (Seroquel) 12.5 mg PO HS PRN; Protocol PRN Reason: Agitation Last Admin: 01/09/18 22:21 Dose: 12.5 mg Thiamine HCl (Vitamin B1 Tab) 100 mg PO DAILY [facility] Last Admin: 01/16/18 09:33 Dose: 100 mg Zinc Sulfate (Zinc Sulfate 220 Mg Cap) 220 mg PO DAILY [facility] Last Admin: 01/16/18 09:32 Dose: 220 mg - Labs Labs: 01/10/18 05:30 01/10/18 05:30 PT 12.5 SECONDS (9.4-12.5) 12/09/17 10:00 INR 1.09 (0.93-1.08) H 12/09/17 10:00 APTT 28.3 Seconds (25.1-36.5) 11/30/17 05:30 - Additional Findings Additional findings: - Additional Findings Additional findings: - Constitutional Appears: Well, Non-toxic - Head Exam Head Exam: ATRAUMATIC, NORMOCEPHALIC - Eye Exam Eye Exam: EOMI, Normal appearance - ENT Exam ENT Exam: Mucous Membranes Moist, Normal Oropharynx - Neck Exam Neck Exam: Normal Inspection - Respiratory Exam Respiratory Exam: Clear to Ausculation Bilateral, NORMAL BREATHING PATTERN. absent: Accessory Muscle Use - Cardiovascular Exam Cardiovascular Exam: RRR, +S1, +S2 - GI/Abdominal Exam GI & Abdominal Exam: Soft, Normal Bowel Sounds. absent: Guarding, Rebound - Extremities Exam Extremities Exam: Normal Inspection - Back Exam Back Exam: absent: CVA tenderness (L), CVA tenderness (R) - Neurological Exam Neurological Exam: Alert, Awake. Difficult to assess orientation. Patient responding appropriately to questions, though mostly with one word answers. Able to obey simple commands and some complex commands. - Psychiatric Exam Psychiatric exam: Flat affect. Depressed mood. - Skin Skin Exam: Dry, Intact, Normal Color, Warm Assessment and Plan - Assessment and Plan (Free Text) Assessment: 57 year old male with unknown past medical history who was brought in via EMS for AMS covered in feces in his apartment. 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 He completed course of IV ceftriaxone for his bacteremia and is pending Transesophageal Echocardiogram and colonoscopy to rule out endocarditis and colon cancer, respectively. Important to note, patient is unable to give consent for TAHIR and colonoscopy secondary to being not of decision-making capacity. Pending state guardianship for further placement. Plan: 1) AMS resolved - Executive function is improved - Continue with delirium precautions - Patient able to follow some complex commands; shows total lack of motivation for even simple tasks; answers most questions with only one-word answers; unable to care for himself or get out of bed on his own - Patient likely depressed; continue Celexa 2) Bacteremia with Strep Viridans/Mitis and Coag Neg Staph Bacteremia - Blood cultures negative since 12/04/17 - Completed 6 week course of antibiotics - Will continue to monitor WBC, ESR, and CRP weekly or more, if indicated - Psychiatry, Cardiology, Neurology and ID consulted, all recommendations appreciated - PT/OT recommending JOSIAH upon discharge 3) Colonic Neoplasm -Flexible sigmoidoscopy/Colonoscopy to be done when consent can be obtained -GI consulted, all recommendations appreciated 4) Ischemic Stroke - Continue ASA 81mg and Lipitor 20mg 5) History of Alcohol Abuse/Withdrawal - PO Folate,Thiamine, and Multivitamin supplements - Fall, Seizure, and Aspiration precautions 6) DM II -Blood glucose moderately controlled -Levemir 12 units HS -Continue regular insulin 3u AC -Continue insulin lispart sliding scale low for additional coverage -Carb Consistent Diet 7) HTN - Continue Lisinopril 10mg - Norvasc 10mg PO daily 8) Sacral decubitus: resolved - Continue Q2h repositioning as patient tolerates - OOB to chair; patient is refusing. 9) Affective disorder, unspecified - Geodon PRN - Celexa 10 mg PO Daily - Seroquel HS - Ativan 0.5 mg BID [facility] - Psychiatry consulted, recommendations noted 10) GI/DVT prophylaxis - Protonix 40 daily - Lovenox 40 SC Disposition: The patient lack decision making capacity. He does not has understanding of his diagnosis, medical treatment, potential benefit and risk associated with and without treatment. The patient has multiple medical condition, getting treatment for possible endocarditis, gram positive bacteremia and colonic lesion could be malignant and CVA. Patient has dementia likely due to alcohol abuse. Patient does not has any behavior problem. Basically at this time, patient does not has capacity to make decision for himself. He need detention care and supervision at this time, need help in medication, feeding and change of position. Patient discussed and reviewed with attending Dr. Galo. <Sixto Galo - Last Filed: 01/16/18 12:36> Objective - Vital Signs/Intake and Output Vital Signs (last 24 hours): Temp Pulse Resp BP Pulse Ox 98.3 F 90 20 115/77 94 L 01/16/18 06:00 01/16/18 09:33 01/16/18 06:00 01/16/18 09:33 01/16/18 06:00 Intake and Output: 01/16/18 01/16/18 06:59 18:59 Intake Total 900 Output Total 0 Balance 900 - Medications Medications: Current Medications Amlodipine Besylate (Norvasc) 10 mg PO DAILY [facility] Last Admin: 01/16/18 09:32 Dose: 10 mg Aspirin (Ecotrin) 81 mg PO DAILY [facility] Last Admin: 01/16/18 09:32 Dose: 81 mg Atorvastatin Calcium (Lipitor) 20 mg PO DIN [facility] Last Admin: 01/15/18 18:25 Dose: 20 mg Citalopram Hydrobromide (Celexa) 10 mg PO DAILY [facility] Last Admin: 01/16/18 09:32 Dose: 10 mg Clotrimazole (Lotrimin Af 1%) 0 ml TOP BID [facility] Last Admin: 01/16/18 09:32 Dose: 1 applic Enoxaparin Sodium (Lovenox) 40 mg SC DAILY [facility] PRN Reason: Protocol Last Admin: 01/16/18 09:32 Dose: 40 mg Folic Acid (Folic Acid) 1 mg PO DAILY [facility] Last Admin: 01/16/18 09:32 Dose: 1 mg Insulin Detemir (Levemir) 12 unit SC [facility] Last Admin: 01/15/18 21:51 Dose: 12 unit Insulin Human Lispro (Humalog Low) 0 units SC ACHS [facility] PRN Reason: Protocol Last Admin: 01/16/18 12:27 Dose: 1 units Insulin Human Regular (Humulin R) 3 units SC AC [facility] Last Admin: 01/16/18 12:28 Dose: 3 units Lisinopril (Zestril) 10 mg PO DAILY [facility] Last Admin: 01/16/18 09:33 Dose: 10 mg Lorazepam (Ativan) 0.5 mg PO BID PRN; Protocol PRN Reason: anxiety and restlessness Multivitamins/Minerals (Therapeutic-M Tab) 1 tab PO 0800 [facility] Last Admin: 01/16/18 08:44 Dose: 1 tab Pantoprazole Sodium (Protonix Ec Tab) 40 mg PO 0600 [facility] Last Admin: 01/16/18 06:01 Dose: 40 mg Quetiapine Fumarate (Seroquel) 12.5 mg PO HS PRN; Protocol PRN Reason: Agitation Last Admin: 01/09/18 22:21 Dose: 12.5 mg Thiamine HCl (Vitamin B1 Tab) 100 mg PO DAILY [facility] Last Admin: 01/16/18 09:33 Dose: 100 mg Zinc Sulfate (Zinc Sulfate 220 Mg Cap) 220 mg PO DAILY [facility] Last Admin: 01/16/18 09:32 Dose: 220 mg - Labs Labs: 01/10/18 05:30 01/10/18 05:30 PT 12.5 SECONDS (9.4-12.5) 12/09/17 10:00 INR 1.09 (0.93-1.08) H 12/09/17 10:00 APTT 28.3 Seconds (25.1-36.5) 11/30/17 05:30 Attending/Attestation - Attestation I have personally seen and examined this patient.: Yes I have fully participated in the care of the patient.: Yes I have reviewed all pertinent clinical information, including history, physical exam and plan: Yes Notes (Text): 01/16/18 12:35 57 year old male with no know past medical history who was admitted with altered mental status. He was treated for right hip cellulitis, pneumonia and flu earlier during this admission. He was also found to have strep viridans bacteremia for which he has completed course of iv antibiotics. Echocardiogram could not rule out vegetations. Family is not available to give consent for TAHIR. He was also found to have acute vs subacute infarct. He is on aspirin and statin. PT recommends JOSIAH. CT abd/pelvis showed colonic mass and liver lesions. At this time consent cannot be obtained for sigmoidoscopy or biopsy. He is on levemir and insulin ss for diabetes. He is on norvasc and lisinopril for hypertension. Case management and geriatric social worker are working on guardianship and disposition. Sixto Galo MD Hospitalist.
--- NOTE | 2018-01-16 20:16 | PN ---
DATE: 01/16/2018 SUBJECTIVE: The patient was seen in bed, in no acute distress, nontoxic. No fevers. No chills. OBJECTIVE: HEENT: Unremarkable. NECK: Supple. LUNGS: Decreased breath sounds. HEART: Normal S1 and S2. ABDOMEN: Soft and nontender. LABORATORY EXAMINATION: Reviewed and review of orders are noted and patient is off antibiotics. ASSESSMENT AND PLAN: A 57-year-old with sepsis due to Streptococcus viridans and coagulase-negative Staphylococcus bacteremia, right gluteal back cellulitis, status post multifocal healthcare-associated pneumonia on top of influenza infection, has completed 2 days of antibiotics. He is currently off antibiotics. Afebrile. Patient is at risk for developing nosocomial infections. Daniel Torres MD
[2018-01-16] MEDS: Insulin Detemir 100 units/ml Vial (Levemir) SC SCH (22:00)
[2018-01-17] MEDS: Pantoprazole 40 mg EC Tab PO SCH (05:21)
[2018-01-17] MEDS: Insulin Lispro (humaLOG) LOW Coverage SC SCH ×4 (08:17→22:09)
[2018-01-17] MEDS: Multivitamin With Minerals Tab PO SCH (08:38)
[2018-01-17] MEDS: Insulin Regular 1 UNITS/0.01 ML ML SC SCH ×3 (08:38→17:18)
[2018-01-17] MEDS: Enoxaparin 40 mg Syringe SC SCH (10:10)
[2018-01-17] MEDS: Clotrimazole 1% Top Soln(10 ml) TOP SCH ×2 (10:10→17:18)
--- NOTE | 2018-01-17 16:05 | CP.PCM.CON ---
<Vickie Vang - Last Filed: 01/17/18 16:02> History of Present Illness - History of Present Illness History of Present Illness: Podiatry Consult Note - Dr. Oakley 57M patient seen and evaluated at bedside for painful, thickened elongated nails x10. Patient reports that his nails cause him discomfort when pressure is applied to them. Offers no other complaints. Denies N/V/F/D/C/SOB/DIXON/dizziness. Review of Systems - Review of Systems All systems: reviewed and no additional remarkable complaints except (as per HPI ) Past Patient History - Infectious Disease Hx of Infectious Diseases: None - Tetanus Immunizations Tetanus Immunization: Unknown - Past Social History Smoking Status: Unknown If Ever Smoked - CARDIAC Hx Cardiac Disorders: (UNKNOWN) - PULMONARY Hx Respiratory Disorders: (UNKNOWN) - NEUROLOGICAL Hx Neurological Disorder: No (UNKNOWN) - HEENT Hx HEENT Problems: No (UNKNOWN) - RENAL Hx Chronic Kidney Disease: No (UNKNOWN) - ENDOCRINE/METABOLIC Hx Endocrine Disorders: No (UNKNOWN) - HEMATOLOGICAL/ONCOLOGICAL Hx Blood Disorders: No (UNKNOWN) - INTEGUMENTARY Hx Dermatological Problems: Yes Other/Comment: 11-29-17 ERYTHEMATOUS RASH WITH SKIN SLOUGHED IN VARIOUS AREAS. EXTENDING TO RIGHT THIGH.BILATERAL GROIN AREA AND BILATERAL BUTTOCKS AND SACRAL AREA WITH IASD. INFLAMED SKIN RED. BILATERAL LE WITH NUMEROUS DRY SCABBED WOUND.BILATERAL KNEE ABRASION. - MUSCULOSKELETAL/RHEUMATOLOGICAL Hx Musculoskeletal Disorders: Yes Hx Falls: Yes - GASTROINTESTINAL Hx Gastrointestinal Disorders: No - GENITOURINARY/GYNECOLOGICAL Hx Genitourinary Disorders: Yes Hx Incontinence: Yes - PSYCHIATRIC Hx Depression: No Hx Emotional Abuse: No Hx Physical Abuse: No Hx Substance Use: (unable to obtain) - SURGICAL HISTORY Hx Surgeries: No (UNKNOWN) Meds Allergies/Adverse Reactions: Allergies Allergy/AdvReac Type Severity Reaction Status Date / Time Unobtainable Allergy Verified 11/29/17 19:43 - Medications Medications: Current Medications Amlodipine Besylate (Norvasc) 10 mg PO DAILY [facility] Last Admin: 01/17/18 10:10 Dose: 10 mg Aspirin (Ecotrin) 81 mg PO DAILY [facility] Last Admin: 01/17/18 10:09 Dose: 81 mg Atorvastatin Calcium (Lipitor) 20 mg PO DIN [facility] Last Admin: 01/16/18 17:28 Dose: 20 mg Citalopram Hydrobromide (Celexa) 10 mg PO DAILY [facility] Last Admin: 01/17/18 10:09 Dose: 10 mg Clotrimazole (Lotrimin Af 1%) 0 ml TOP BID [facility] Last Admin: 01/17/18 10:10 Dose: 1 applic Enoxaparin Sodium (Lovenox) 40 mg SC DAILY [facility] PRN Reason: Protocol Last Admin: 01/17/18 10:10 Dose: 40 mg Folic Acid (Folic Acid) 1 mg PO DAILY [facility] Last Admin: 01/17/18 10:09 Dose: 1 mg Insulin Detemir (Levemir) 12 unit SC HS [facility] Last Admin: 01/16/18 22:00 Dose: 12 unit Insulin Human Lispro (Humalog Low) 0 units SC ACHS [facility] PRN Reason: Protocol Last Admin: 01/17/18 12:09 Dose: 1 units Insulin Human Regular (Humulin R) 3 units SC AC [facility] Last Admin: 01/17/18 12:10 Dose: 3 units Lisinopril (Zestril) 10 mg PO DAILY [facility] Last Admin: 01/17/18 10:12 Dose: 10 mg Lorazepam (Ativan) 0.5 mg PO BID PRN; Protocol PRN Reason: anxiety and restlessness Multivitamins/Minerals (Therapeutic-M Tab) 1 tab PO 0800 [facility] Last Admin: 01/17/18 08:38 Dose: 1 tab Pantoprazole Sodium (Protonix Ec Tab) 40 mg PO 0600 [facility] Last Admin: 01/17/18 05:21 Dose: 40 mg Quetiapine Fumarate (Seroquel) 12.5 mg PO HS PRN; Protocol PRN Reason: Agitation Last Admin: 01/09/18 22:21 Dose: 12.5 mg Thiamine HCl (Vitamin B1 Tab) 100 mg PO DAILY [facility] Last Admin: 01/17/18 10:11 Dose: 100 mg Zinc Sulfate (Zinc Sulfate 220 Mg Cap) 220 mg PO DAILY [facility] Last Admin: 01/17/18 10:12 Dose: 220 mg Physical Exam - Constitutional Appears: Well, Non-toxic, No Acute Distress - Extremities Exam Extremities exam: Positive for: normal capillary refill, tenderness (Pain on palpation nails x10), pedal pulses present. Negative for: calf tenderness, joint swelling, pedal edema Additional comments: Nails 1-10 are thickened, elongated, incurvated, with the presence of subungual debris - Neurological Exam Neurological exam: Alert - Psychiatric Exam Psychiatric exam: Normal Affect, Normal Mood Results - Vital Signs Recent Vital Signs: Last Vital Signs Temp 97.5 F L 01/17/18 08:28 Pulse 90 01/17/18 10:12 Resp 20 01/17/18 08:28 BP 141/85 01/17/18 10:12 Pulse Ox 94 L 01/17/18 08:28 - Labs Result Diagrams: 01/10/18 05:30 01/10/18 05:30 Labs: Laboratory Results - last 24 hr 01/16/18 01/16/18 01/17/18 16:38 21:30 07:32 POC Glucose (mg/dL) 219 H 227 H 124 H Total Creatine Kinase C-React Prot High Sens 01/17/18 01/17/18 01/17/18 09:30 09:30 11:39 POC Glucose (mg/dL) 184 H Total Creatine Kinase < 20 L C-React Prot High Sens 8.06 H Assessment & Plan - Assessment and Plan (Free Text) Assessment: 57M with onychomycosis Plan: Patient seen and evaluated alongside Dr. Oakley afebrile, absent leukocytosis Nails 1-5 b/l debrided in thickness and length without incident Stable per podiatry standpoint Podiatry to sign off at this time Thank you for the consult, please reconsult podiatry if new issues arise <Ivania Oakley - Last Filed: 01/19/18 07:50> Meds - Medications Medications: Current Medications Amlodipine Besylate (Norvasc) 10 mg PO DAILY [facility] Last Admin: 01/18/18 09:23 Dose: 10 mg Aspirin (Ecotrin) 81 mg PO DAILY [facility] Last Admin: 01/18/18 09:24 Dose: 81 mg Atorvastatin Calcium (Lipitor) 20 mg PO DIN [facility] Last Admin: 01/18/18 17:29 Dose: 20 mg Citalopram Hydrobromide (Celexa) 10 mg PO DAILY [facility] Last Admin: 01/18/18 09:22 Dose: 10 mg Clotrimazole (Lotrimin Af 1%) 0 ml TOP BID [facility] Last Admin: 01/18/18 17:29 Dose: 1 applic Enoxaparin Sodium (Lovenox) 40 mg SC DAILY [facility] PRN Reason: Protocol Last Admin: 01/18/18 09:23 Dose: 40 mg Folic Acid (Folic Acid) 1 mg PO DAILY [facility] Last Admin: 01/18/18 09:22 Dose: 1 mg Insulin Detemir (Levemir) 12 unit SC HS [facility] Last Admin: 01/18/18 21:39 Dose: 12 unit Insulin Human Lispro (Humalog Low) 0 units SC ACHS [facility] PRN Reason: Protocol Last Admin: 01/18/18 21:40 Dose: Not Given Insulin Human Regular (Humulin R) 3 units SC AC [facility] Last Admin: 01/18/18 16:25 Dose: 3 units Lisinopril (Zestril) 10 mg PO DAILY [facility] Last Admin: 01/18/18 09:22 Dose: 10 mg Lorazepam (Ativan) 0.5 mg PO BID PRN; Protocol PRN Reason: anxiety and restlessness Multivitamins/Minerals (Therapeutic-M Tab) 1 tab PO 0800 [facility] Last Admin: 01/18/18 09:22 Dose: 1 tab Pantoprazole Sodium (Protonix Ec Tab) 40 mg PO 0600 [facility] Last Admin: 01/19/18 05:06 Dose: 40 mg Quetiapine Fumarate (Seroquel) 12.5 mg PO HS PRN; Protocol PRN Reason: Agitation Last Admin: 01/17/18 22:08 Dose: 12.5 mg Thiamine HCl (Vitamin B1 Tab) 100 mg PO DAILY [facility] Last Admin: 01/18/18 09:22 Dose: 100 mg Zinc Sulfate (Zinc Sulfate 220 Mg Cap) 220 mg PO DAILY [facility] Last Admin: 01/18/18 09:22 Dose: 220 mg Results - Vital Signs Recent Vital Signs: Last Vital Signs Temp 98.4 F 01/18/18 16:00 Pulse 91 H 01/18/18 16:00 Resp 20 01/18/18 16:00 BP 106/65 01/18/18 16:00 Pulse Ox 95 01/18/18 16:00 - Labs Result Diagrams: 01/18/18 06:19 01/18/18 06:19 Labs: Laboratory Results - last 24 hr 01/18/18 01/18/18 01/18/18 11:27 16:21 21:32 POC Glucose (mg/dL) 174 H 148 H 181 H Attending/Attestation - Attestation I have personally seen and examined this patient.: Yes I have fully participated in the care of the patient.: Yes I have reviewed all pertinent clinical information: Yes Notes (Text): 01/19/18 07:49 I have seen evaluated and formulted the plan of care for this patient
[2018-01-17] MEDS: Insulin Detemir 100 units/ml Vial (Levemir) SC SCH (22:09)
[2018-01-18] MEDS: Pantoprazole 40 mg EC Tab PO SCH (05:37)
[2018-01-18 06:35] LABS: BASO # 0.03 K/mm3 (0.0-2.0); BASO % 0.3 % (0.0-3.0); EOS # 0.3 (0.0-0.7); EOS % 2.9 % (1.5-5.0); GRAN # 4.6 (1.4-6.5); GRAN % 52.9 % (50.0-68.0); HEMOGLOBIN 11.8 g/dL (14.0-18.0); LYMPH # 3.1 (1.2-3.4); MEAN CELL VOLUME 87.6 fl (80.0-105.0); MEAN CORPUSCULAR HEMOGLOBIN 29.2 pg (25.0-35.0); MEAN CORPUSCULAR HGB CONC 33.3 g/dl (31.0-37.0); MEAN PLATELET VOLUME 8.8 fl (7.0-11.0); MONO # 0.7 (0.1-0.6); MONO % 7.9 % (1.0-6.0); RBC 4.04 10^6/uL (3.5-6.1); RED CELL DISTRIBUTION WIDTH 15.6 % (11.5-14.5); WHITE BLOOD COUNT 8.7 10^3/ul (4.5-11.0)
[2018-01-18 06:55] LABS: ALB/GLOB RATIO 1.2 (1.1-1.8); ALBUMIN 3.6 g/dL (3.0-4.8); ALT/SGPT 25 U/L (7-56); AST/SGOT 27 U/L (17-59); BLOOD UREA NITROGEN 17 mg/dL (7-21); CALCIUM 10.1 mg/dL (8.4-10.5); GFR NON-AFRICAN AMERICAN > 60
[2018-01-18] MEDS: Insulin Regular 1 UNITS/0.01 ML ML SC SCH ×4 (08:26→16:25)
[2018-01-18] MEDS: Insulin Lispro (humaLOG) LOW Coverage SC SCH ×4 (08:27→21:40)
[2018-01-18] MEDS: Multivitamin With Minerals Tab PO SCH (09:22)
[2018-01-18] MEDS: Enoxaparin 40 mg Syringe SC SCH (09:23)
[2018-01-18] MEDS: Clotrimazole 1% Top Soln(10 ml) TOP SCH ×2 (09:24→17:29)
--- NOTE | 2018-01-18 12:18 | CP.PCM.PN ---
Subjective - Date & Time of Evaluation Date of Evaluation: 01/18/18 Time of Evaluation: 10:25 - Subjective Subjective: Comfortable in bed, afebrile. Objective - Vital Signs/Intake and Output Vital Signs (last 24 hours): Temp Pulse Resp BP Pulse Ox 98.2 F 93 H 20 106/67 95 01/18/18 08:31 01/18/18 08:31 01/18/18 08:31 01/18/18 08:31 01/18/18 08:31 Intake and Output: 01/18/18 01/18/18 06:59 18:59 Intake Total 120 Balance 120 - Medications Medications: Current Medications Amlodipine Besylate (Norvasc) 10 mg PO DAILY [facility] Last Admin: 01/17/18 10:10 Dose: 10 mg Aspirin (Ecotrin) 81 mg PO DAILY [facility] Last Admin: 01/17/18 10:09 Dose: 81 mg Atorvastatin Calcium (Lipitor) 20 mg PO DIN [facility] Last Admin: 01/17/18 17:18 Dose: 20 mg Citalopram Hydrobromide (Celexa) 10 mg PO DAILY [facility] Last Admin: 01/17/18 10:09 Dose: 10 mg Clotrimazole (Lotrimin Af 1%) 0 ml TOP BID [facility] Last Admin: 01/17/18 17:18 Dose: 1 applic Enoxaparin Sodium (Lovenox) 40 mg SC DAILY [facility] PRN Reason: Protocol Last Admin: 01/17/18 10:10 Dose: 40 mg Folic Acid (Folic Acid) 1 mg PO DAILY [facility] Last Admin: 01/17/18 10:09 Dose: 1 mg Insulin Detemir (Levemir) 12 unit SC HS [facility] Last Admin: 01/17/18 22:09 Dose: 12 unit Insulin Human Lispro (Humalog Low) 0 units SC ACHS [facility] PRN Reason: Protocol Last Admin: 01/18/18 08:27 Dose: Not Given Insulin Human Regular (Humulin R) 3 units SC AC [facility] Last Admin: 01/18/18 08:26 Dose: Not Given Lisinopril (Zestril) 10 mg PO DAILY [facility] Last Admin: 01/17/18 10:12 Dose: 10 mg Lorazepam (Ativan) 0.5 mg PO BID PRN; Protocol PRN Reason: anxiety and restlessness Multivitamins/Minerals (Therapeutic-M Tab) 1 tab PO 0800 [facility] Last Admin: 01/17/18 08:38 Dose: 1 tab Pantoprazole Sodium (Protonix Ec Tab) 40 mg PO 0600 [facility] Last Admin: 01/18/18 05:37 Dose: 40 mg Quetiapine Fumarate (Seroquel) 12.5 mg PO HS PRN; Protocol PRN Reason: Agitation Last Admin: 01/17/18 22:08 Dose: 12.5 mg Thiamine HCl (Vitamin B1 Tab) 100 mg PO DAILY [facility] Last Admin: 01/17/18 10:11 Dose: 100 mg Zinc Sulfate (Zinc Sulfate 220 Mg Cap) 220 mg PO DAILY [facility] Last Admin: 01/17/18 10:12 Dose: 220 mg - Labs Labs: 01/18/18 06:19 01/18/18 06:19 PT 12.5 SECONDS (9.4-12.5) 12/09/17 10:00 INR 1.09 (0.93-1.08) H 12/09/17 10:00 APTT 28.3 Seconds (25.1-36.5) 11/30/17 05:30 - Constitutional Appears: Non-toxic, Chronically Ill - Head Exam Head Exam: NORMAL INSPECTION - Respiratory Exam Respiratory Exam: Decreased Breath Sounds - Cardiovascular Exam Cardiovascular Exam: +S1, +S2 - GI/Abdominal Exam GI & Abdominal Exam: Soft. absent: Tenderness Assessment and Plan - Assessment and Plan (Free Text) Plan: Assessment S/P sepsis due to strep viridans and CoNS bacteremia from right gluteal and back cellulitis S/P multifocal HCAP on top of Influenza A infection R/O Sammie infection of sacral area as well Plan completed 42 days of antibiotics - continue to monitor clinically off antibiotics since he is at risk for nosocomial infections
[2018-01-18] MEDS: Insulin Detemir 100 units/ml Vial (Levemir) SC SCH (21:39)
[2018-01-19] MEDS: Pantoprazole 40 mg EC Tab PO SCH (05:06)
--- NOTE | 2018-01-19 06:35 | CP.PCM.PN ---
<Nikita Hurley - Last Filed: 01/19/18 06:35> Subjective - Date & Time of Evaluation Date of Evaluation: 01/17/18 Time of Evaluation: 07:00 - Subjective Subjective: Nikita Hurley DO PGY-1: Hospitalist Service Patient seen and examined at bedside. Patient denies any chest pain, nausea, vomiting, or diarrhea. Nurse reports no events overnight. Objective - Vital Signs/Intake and Output Vital Signs (last 24 hours): Temp Pulse Resp BP Pulse Ox 98.4 F 91 H 20 106/65 95 01/18/18 16:00 01/18/18 16:00 01/18/18 16:00 01/18/18 16:00 01/18/18 16:00 Intake and Output: 01/18/18 01/19/18 18:59 06:59 Intake Total 120 660 Balance 120 660 - Medications Medications: Current Medications Amlodipine Besylate (Norvasc) 10 mg PO DAILY [facility] Last Admin: 01/18/18 09:23 Dose: 10 mg Aspirin (Ecotrin) 81 mg PO DAILY [facility] Last Admin: 01/18/18 09:24 Dose: 81 mg Atorvastatin Calcium (Lipitor) 20 mg PO DIN [facility] Last Admin: 01/18/18 17:29 Dose: 20 mg Citalopram Hydrobromide (Celexa) 10 mg PO DAILY [facility] Last Admin: 01/18/18 09:22 Dose: 10 mg Clotrimazole (Lotrimin Af 1%) 0 ml TOP BID [facility] Last Admin: 01/18/18 17:29 Dose: 1 applic Enoxaparin Sodium (Lovenox) 40 mg SC DAILY [facility] PRN Reason: Protocol Last Admin: 01/18/18 09:23 Dose: 40 mg Folic Acid (Folic Acid) 1 mg PO DAILY [facility] Last Admin: 01/18/18 09:22 Dose: 1 mg Insulin Detemir (Levemir) 12 unit SC HS [facility] Last Admin: 01/18/18 21:39 Dose: 12 unit Insulin Human Lispro (Humalog Low) 0 units SC ACHS [facility] PRN Reason: Protocol Last Admin: 01/18/18 21:40 Dose: Not Given Insulin Human Regular (Humulin R) 3 units SC AC [facility] Last Admin: 01/18/18 16:25 Dose: 3 units Lisinopril (Zestril) 10 mg PO DAILY [facility] Last Admin: 01/18/18 09:22 Dose: 10 mg Lorazepam (Ativan) 0.5 mg PO BID PRN; Protocol PRN Reason: anxiety and restlessness Multivitamins/Minerals (Therapeutic-M Tab) 1 tab PO 0800 [facility] Last Admin: 01/18/18 09:22 Dose: 1 tab Pantoprazole Sodium (Protonix Ec Tab) 40 mg PO 0600 [facility] Last Admin: 01/19/18 05:06 Dose: 40 mg Quetiapine Fumarate (Seroquel) 12.5 mg PO HS PRN; Protocol PRN Reason: Agitation Last Admin: 01/17/18 22:08 Dose: 12.5 mg Thiamine HCl (Vitamin B1 Tab) 100 mg PO DAILY [facility] Last Admin: 01/18/18 09:22 Dose: 100 mg Zinc Sulfate (Zinc Sulfate 220 Mg Cap) 220 mg PO DAILY [facility] Last Admin: 01/18/18 09:22 Dose: 220 mg - Labs Labs: 01/18/18 06:19 01/18/18 06:19 PT 12.5 SECONDS (9.4-12.5) 12/09/17 10:00 INR 1.09 (0.93-1.08) H 12/09/17 10:00 APTT 28.3 Seconds (25.1-36.5) 11/30/17 05:30 - Constitutional Appears: Well, Non-toxic - Head Exam Head Exam: ATRAUMATIC, NORMOCEPHALIC - Eye Exam Eye Exam: EOMI, Normal appearance - ENT Exam ENT Exam: Mucous Membranes Moist, Normal Oropharynx - Neck Exam Neck Exam: Normal Inspection - Respiratory Exam Respiratory Exam: Clear to Ausculation Bilateral, NORMAL BREATHING PATTERN. absent: Accessory Muscle Use - Cardiovascular Exam Cardiovascular Exam: RRR, +S1, +S2 - GI/Abdominal Exam GI & Abdominal Exam: Soft, Normal Bowel Sounds - Extremities Exam Extremities Exam: Normal Inspection. absent: Calf Tenderness - Back Exam Back Exam: NORMAL INSPECTION. absent: CVA tenderness (L), CVA tenderness (R) - Neurological Exam Neurological Exam: Alert, Awake Additional comments: oriented to place, time, not circumstance - Psychiatric Exam Psychiatric exam: Depressed - Skin Skin Exam: Dry, Intact, Normal Color, Warm Assessment and Plan - Assessment and Plan (Free Text) Assessment: 57 year old male with unknown past medical history who was brought in via EMS for AMS covered in feces in his apartment. 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 He completed course of IV ceftriaxone for his bacteremia and is pending Transesophageal Echocardiogram and colonoscopy to rule out endocarditis and colon cancer, respectively. Important to note, patient is unable to give consent for TAHIR and colonoscopy secondary to being not of decision-making capacity. Pending state guardianship for further placement. Plan: 1) AMS resolved - Executive function is improved - Continue with delirium precautions - Patient able to follow some complex commands; shows total lack of motivation for even simple tasks; answers most questions with only one-word answers; unable to care for himself or get out of bed on his own - Patient likely depressed; continue Celexa 2) Bacteremia with Strep Viridans/Mitis and Coag Neg Staph Bacteremia - Blood cultures negative since 12/04/17 - Completed 6 week course of antibiotics - Will continue to monitor WBC, ESR, and CRP weekly or more, if indicated - Psychiatry, Cardiology, Neurology and ID consulted, all recommendations appreciated - PT/OT recommending JOSIAH upon discharge 3) Colonic Neoplasm -Flexible sigmoidoscopy/Colonoscopy to be done when consent can be obtained -GI consulted, all recommendations appreciated 4) Ischemic Stroke - Continue ASA 81mg and Lipitor 20mg 5) History of Alcohol Abuse/Withdrawal - PO Folate,Thiamine, and Multivitamin supplements - Fall, Seizure, and Aspiration precautions 6) DM II -Blood glucose moderately controlled -Levemir 12 units HS -Continue regular insulin 3u AC -Continue insulin lispart sliding scale low for additional coverage -Carb Consistent Diet 7) HTN - Continue Lisinopril 10mg - Norvasc 10mg PO daily 8) Sacral decubitus: resolved - Continue Q2h repositioning as patient tolerates - OOB to chair; patient is refusing. 9) Affective disorder, unspecified - Geodon PRN - Celexa 10 mg PO Daily - Seroquel HS - Ativan 0.5 mg BID [facility] - Psychiatry consulted, recommendations noted 10) GI/DVT prophylaxis - Protonix 40 daily - Lovenox 40 SC Disposition: The patient lack decision making capacity. He does not has understanding of his diagnosis, medical treatment, potential benefit and risk associated with and without treatment. The patient has multiple medical condition, getting treatment for possible endocarditis, gram positive bacteremia and colonic lesion could be malignant and CVA. Patient has dementia likely due to alcohol abuse. Patient does not has any behavior problem. Basically at this time, patient does not has capacity to make decision for himself. 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 <Deanan Schumacher - Last Filed: 01/19/18 17:13> Objective - Vital Signs/Intake and Output Vital Signs (last 24 hours): Temp Pulse Resp BP Pulse Ox 98.2 F 95 H 20 113/75 92 L 01/19/18 16:00 01/19/18 16:00 01/19/18 16:00 01/19/18 16:00 01/19/18 16:00 Intake and Output: 01/19/18 01/19/18 06:59 18:59 Intake Total 660 Balance 660 - Medications Medications: Current Medications Amlodipine Besylate (Norvasc) 10 mg PO DAILY [facility] Last Admin: 01/19/18 09:55 Dose: 10 mg Aspirin (Ecotrin) 81 mg PO DAILY [facility] Last Admin: 01/19/18 09:53 Dose: 81 mg Atorvastatin Calcium (Lipitor) 20 mg PO DIN [facility] Last Admin: 01/19/18 17:02 Dose: 20 mg Citalopram Hydrobromide (Celexa) 10 mg PO DAILY [facility] Last Admin: 01/19/18 09:53 Dose: 10 mg Clotrimazole (Lotrimin Af 1%) 0 ml TOP BID [facility] Last Admin: 01/19/18 17:02 Dose: 1 applic Enoxaparin Sodium (Lovenox) 40 mg SC DAILY [facility] PRN Reason: Protocol Last Admin: 01/19/18 09:54 Dose: 40 mg Folic Acid (Folic Acid) 1 mg PO DAILY [facility] Last Admin: 01/19/18 09:54 Dose: 1 mg Insulin Detemir (Levemir) 12 unit SC HS [facility] Last Admin: 01/18/18 21:39 Dose: 12 unit Insulin Human Lispro (Humalog Low) 0 units SC ACHS [facility] PRN Reason: Protocol Last Admin: 01/19/18 16:11 Dose: Not Given Insulin Human Regular (Humulin R) 3 units SC AC [facility] Last Admin: 01/19/18 17:01 Dose: 3 units Lisinopril (Zestril) 10 mg PO DAILY [facility] Last Admin: 01/19/18 09:56 Dose: 10 mg Multivitamins/Minerals (Therapeutic-M Tab) 1 tab PO 0800 [facility] Last Admin: 01/19/18 08:36 Dose: 1 tab Pantoprazole Sodium (Protonix Ec Tab) 40 mg PO 0600 [facility] Last Admin: 01/19/18 05:06 Dose: 40 mg Quetiapine Fumarate (Seroquel) 12.5 mg PO HS PRN; Protocol PRN Reason: Agitation Last Admin: 01/17/18 22:08 Dose: 12.5 mg Thiamine HCl (Vitamin B1 Tab) 100 mg PO DAILY [facility] Last Admin: 01/19/18 09:56 Dose: 100 mg Zinc Sulfate (Zinc Sulfate 220 Mg Cap) 220 mg PO DAILY [facility] Last Admin: 01/19/18 09:56 Dose: 220 mg - Labs Labs: 01/18/18 06:19 01/18/18 06:19 PT 12.5 SECONDS (9.4-12.5) 12/09/17 10:00 INR 1.09 (0.93-1.08) H 12/09/17 10:00 APTT 28.3 Seconds (25.1-36.5) 11/30/17 05:30 Attending/Attestation - Attestation I have personally seen and examined this patient.: Yes I have fully participated in the care of the patient.: Yes I have reviewed all pertinent clinical information, including history, physical exam and plan: Yes Notes (Text): 01/19/18 17:13 Medical record note made by the resident after discussion with my direction and input after the patient was personally seen and examined by me. I have reviewed the chart and agree that the record accurately reflects by personal performance of the history, physical exam, data review, and medical decision-making, in the course for the patient. I have also personally directed the plan of care.
--- NOTE | 2018-01-19 06:38 | CP.PCM.PN ---
<Nikita Hurley - Last Filed: 01/19/18 06:39> Subjective - Date & Time of Evaluation Date of Evaluation: 01/18/18 Time of Evaluation: 06:36 - Subjective Subjective: Nikita Hurley DO PGY-1: Hospitalist Service Patient seen and examined at bedside. Patient denies any chest pain, nausea, vomiting, or diarrhea. Nurse reports patient did not sleep well overnight. Objective - Vital Signs/Intake and Output Vital Signs (last 24 hours): Temp Pulse Resp BP Pulse Ox 98.4 F 91 H 20 106/65 95 01/18/18 16:00 01/18/18 16:00 01/18/18 16:00 01/18/18 16:00 01/18/18 16:00 Intake and Output: 01/18/18 01/19/18 18:59 06:59 Intake Total 120 660 Balance 120 660 - Medications Medications: Current Medications Amlodipine Besylate (Norvasc) 10 mg PO DAILY [facility] Last Admin: 01/18/18 09:23 Dose: 10 mg Aspirin (Ecotrin) 81 mg PO DAILY [facility] Last Admin: 01/18/18 09:24 Dose: 81 mg Atorvastatin Calcium (Lipitor) 20 mg PO DIN [facility] Last Admin: 01/18/18 17:29 Dose: 20 mg Citalopram Hydrobromide (Celexa) 10 mg PO DAILY [facility] Last Admin: 01/18/18 09:22 Dose: 10 mg Clotrimazole (Lotrimin Af 1%) 0 ml TOP BID [facility] Last Admin: 01/18/18 17:29 Dose: 1 applic Enoxaparin Sodium (Lovenox) 40 mg SC DAILY [facility] PRN Reason: Protocol Last Admin: 01/18/18 09:23 Dose: 40 mg Folic Acid (Folic Acid) 1 mg PO DAILY [facility] Last Admin: 01/18/18 09:22 Dose: 1 mg Insulin Detemir (Levemir) 12 unit SC HS [facility] Last Admin: 01/18/18 21:39 Dose: 12 unit Insulin Human Lispro (Humalog Low) 0 units SC ACHS [facility] PRN Reason: Protocol Last Admin: 01/18/18 21:40 Dose: Not Given Insulin Human Regular (Humulin R) 3 units SC AC [facility] Last Admin: 01/18/18 16:25 Dose: 3 units Lisinopril (Zestril) 10 mg PO DAILY [facility] Last Admin: 01/18/18 09:22 Dose: 10 mg Lorazepam (Ativan) 0.5 mg PO BID PRN; Protocol PRN Reason: anxiety and restlessness Multivitamins/Minerals (Therapeutic-M Tab) 1 tab PO 0800 [facility] Last Admin: 01/18/18 09:22 Dose: 1 tab Pantoprazole Sodium (Protonix Ec Tab) 40 mg PO 0600 [facility] Last Admin: 01/19/18 05:06 Dose: 40 mg Quetiapine Fumarate (Seroquel) 12.5 mg PO HS PRN; Protocol PRN Reason: Agitation Last Admin: 01/17/18 22:08 Dose: 12.5 mg Thiamine HCl (Vitamin B1 Tab) 100 mg PO DAILY [facility] Last Admin: 01/18/18 09:22 Dose: 100 mg Zinc Sulfate (Zinc Sulfate 220 Mg Cap) 220 mg PO DAILY [facility] Last Admin: 01/18/18 09:22 Dose: 220 mg - Labs Labs: 01/18/18 06:19 01/18/18 06:19 PT 12.5 SECONDS (9.4-12.5) 12/09/17 10:00 INR 1.09 (0.93-1.08) H 12/09/17 10:00 APTT 28.3 Seconds (25.1-36.5) 11/30/17 05:30 - Constitutional Appears: Non-toxic, No Acute Distress - Head Exam Head Exam: ATRAUMATIC, NORMOCEPHALIC - Eye Exam Eye Exam: EOMI, Normal appearance - ENT Exam ENT Exam: Mucous Membranes Moist - Neck Exam Neck Exam: Normal Inspection - Respiratory Exam Respiratory Exam: Clear to Ausculation Bilateral, NORMAL BREATHING PATTERN. absent: Accessory Muscle Use - Cardiovascular Exam Cardiovascular Exam: RRR, +S1, +S2 - GI/Abdominal Exam GI & Abdominal Exam: Soft, Normal Bowel Sounds - Extremities Exam Extremities Exam: Normal Inspection. absent: Calf Tenderness - Back Exam Back Exam: NORMAL INSPECTION - Neurological Exam Neurological Exam: Alert, Awake, Oriented x3 - Psychiatric Exam Psychiatric exam: Depressed - Skin Skin Exam: Dry, Intact, Normal Color, Warm Assessment and Plan - Assessment and Plan (Free Text) Assessment: 57 year old male with unknown past medical history who was brought in via EMS for AMS covered in feces in his apartment. 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 He completed course of IV ceftriaxone for his bacteremia and is pending Transesophageal Echocardiogram and colonoscopy to rule out endocarditis and colon cancer, respectively. Important to note, patient is unable to give consent for TAHIR and colonoscopy secondary to being not of decision-making capacity. Pending state guardianship for further placement. Plan: 1) AMS resolved - Executive function is improved - Continue with delirium precautions - Patient able to follow some complex commands; shows total lack of motivation for even simple tasks; answers most questions with only one-word answers; unable to care for himself or get out of bed on his own - Patient likely depressed; continue Celexa 2) Bacteremia with Strep Viridans/Mitis and Coag Neg Staph Bacteremia - Blood cultures negative since 12/04/17 - Completed 6 week course of antibiotics - Will continue to monitor WBC, ESR, and CRP weekly or more, if indicated - Psychiatry, Cardiology, Neurology and ID consulted, all recommendations appreciated - PT/OT recommending JOSIAH upon discharge 3) Colonic Neoplasm -Flexible sigmoidoscopy/Colonoscopy to be done when consent can be obtained -GI consulted, all recommendations appreciated 4) Ischemic Stroke - Continue ASA 81mg and Lipitor 20mg 5) History of Alcohol Abuse/Withdrawal - PO Folate,Thiamine, and Multivitamin supplements - Fall, Seizure, and Aspiration precautions 6) DM II -Blood glucose moderately controlled -Levemir 12 units HS -Continue regular insulin 3u AC -Continue insulin lispart sliding scale low for additional coverage -Carb Consistent Diet 7) HTN - Continue Lisinopril 10mg - Norvasc 10mg PO daily 8) Sacral decubitus: resolved - Continue Q2h repositioning as patient tolerates - OOB to chair; patient is refusing. 9) Affective disorder, unspecified - Geodon PRN - Celexa 10 mg PO Daily - Seroquel HS - Ativan 0.5 mg BID [facility] - Psychiatry consulted, recommendations noted 10) GI/DVT prophylaxis - Protonix 40 daily - Lovenox 40 SC Disposition: The patient lack decision making capacity. He does not has understanding of his diagnosis, medical treatment, potential benefit and risk associated with and without treatment. The patient has multiple medical condition, getting treatment for possible endocarditis, gram positive bacteremia and colonic lesion could be malignant and CVA. Patient has dementia likely due to alcohol abuse. Patient does not has any behavior problem. Basically at this time, patient does not has capacity to make decision for himself. He need director recreation care and supervision at this time, need help in medication, feeding and change of position. <EndyAlvincarolyne - Last Filed: 01/19/18 17:14> Objective - Vital Signs/Intake and Output Vital Signs (last 24 hours): Temp Pulse Resp BP Pulse Ox 98.2 F 95 H 20 113/75 92 L 01/19/18 16:00 01/19/18 16:00 01/19/18 16:00 01/19/18 16:00 01/19/18 16:00 Intake and Output: 01/19/18 01/19/18 06:59 18:59 Intake Total 660 Balance 660 - Medications Medications: Current Medications Amlodipine Besylate (Norvasc) 10 mg PO DAILY [facility] Last Admin: 01/19/18 09:55 Dose: 10 mg Aspirin (Ecotrin) 81 mg PO DAILY [facility] Last Admin: 01/19/18 09:53 Dose: 81 mg Atorvastatin Calcium (Lipitor) 20 mg PO DIN [facility] Last Admin: 01/19/18 17:02 Dose: 20 mg Citalopram Hydrobromide (Celexa) 10 mg PO DAILY [facility] Last Admin: 01/19/18 09:53 Dose: 10 mg Clotrimazole (Lotrimin Af 1%) 0 ml TOP BID [facility] Last Admin: 01/19/18 17:02 Dose: 1 applic Enoxaparin Sodium (Lovenox) 40 mg SC DAILY [facility] PRN Reason: Protocol Last Admin: 01/19/18 09:54 Dose: 40 mg Folic Acid (Folic Acid) 1 mg PO DAILY [facility] Last Admin: 01/19/18 09:54 Dose: 1 mg Insulin Detemir (Levemir) 12 unit SC HS [facility] Last Admin: 01/18/18 21:39 Dose: 12 unit Insulin Human Lispro (Humalog Low) 0 units SC ACHS [facility] PRN Reason: Protocol Last Admin: 01/19/18 16:11 Dose: Not Given Insulin Human Regular (Humulin R) 3 units SC AC [facility] Last Admin: 01/19/18 17:01 Dose: 3 units Lisinopril (Zestril) 10 mg PO DAILY [facility] Last Admin: 01/19/18 09:56 Dose: 10 mg Multivitamins/Minerals (Therapeutic-M Tab) 1 tab PO 0800 [facility] Last Admin: 01/19/18 08:36 Dose: 1 tab Pantoprazole Sodium (Protonix Ec Tab) 40 mg PO 0600 [facility] Last Admin: 01/19/18 05:06 Dose: 40 mg Quetiapine Fumarate (Seroquel) 12.5 mg PO HS PRN; Protocol PRN Reason: Agitation Last Admin: 01/17/18 22:08 Dose: 12.5 mg Thiamine HCl (Vitamin B1 Tab) 100 mg PO DAILY [facility] Last Admin: 01/19/18 09:56 Dose: 100 mg Zinc Sulfate (Zinc Sulfate 220 Mg Cap) 220 mg PO DAILY [facility] Last Admin: 01/19/18 09:56 Dose: 220 mg - Labs Labs: 01/18/18 06:19 01/18/18 06:19 PT 12.5 SECONDS (9.4-12.5) 12/09/17 10:00 INR 1.09 (0.93-1.08) H 12/09/17 10:00 APTT 28.3 Seconds (25.1-36.5) 11/30/17 05:30 Attending/Attestation - Attestation I have personally seen and examined this patient.: Yes I have fully participated in the care of the patient.: Yes I have reviewed all pertinent clinical information, including history, physical exam and plan: Yes Notes (Text): 01/19/18 17:14 Medical record note made by the resident after discussion with my direction and input after the patient was personally seen and examined by me. I have reviewed the chart and agree that the record accurately reflects by personal performance of the history, physical exam, data review, and medical decision-making, in the course for the patient. I have also personally directed the plan of care.
--- NOTE | 2018-01-19 06:41 | CP.PCM.PN ---
<Nikita Hurley - Last Filed: 01/19/18 06:43> Subjective - Date & Time of Evaluation Date of Evaluation: 01/17/18 Time of Evaluation: 07:30 - Subjective Subjective: Nikita Hurley DO PGY-1: Hospitalist Service Patient seen and examined at bedside. Patient denies any chest pain, nausea, vomiting, or diarrhea. Nurse reports no events overnight. Objective - Vital Signs/Intake and Output Vital Signs (last 24 hours): Temp Pulse Resp BP Pulse Ox 98.4 F 91 H 20 106/65 95 01/18/18 16:00 01/18/18 16:00 01/18/18 16:00 01/18/18 16:00 01/18/18 16:00 Intake and Output: 01/18/18 01/19/18 18:59 06:59 Intake Total 120 660 Balance 120 660 - Medications Medications: Current Medications Amlodipine Besylate (Norvasc) 10 mg PO DAILY [facility] Last Admin: 01/18/18 09:23 Dose: 10 mg Aspirin (Ecotrin) 81 mg PO DAILY [facility] Last Admin: 01/18/18 09:24 Dose: 81 mg Atorvastatin Calcium (Lipitor) 20 mg PO DIN [facility] Last Admin: 01/18/18 17:29 Dose: 20 mg Citalopram Hydrobromide (Celexa) 10 mg PO DAILY [facility] Last Admin: 01/18/18 09:22 Dose: 10 mg Clotrimazole (Lotrimin Af 1%) 0 ml TOP BID [facility] Last Admin: 01/18/18 17:29 Dose: 1 applic Enoxaparin Sodium (Lovenox) 40 mg SC DAILY [facility] PRN Reason: Protocol Last Admin: 01/18/18 09:23 Dose: 40 mg Folic Acid (Folic Acid) 1 mg PO DAILY [facility] Last Admin: 01/18/18 09:22 Dose: 1 mg Insulin Detemir (Levemir) 12 unit SC HS [facility] Last Admin: 01/18/18 21:39 Dose: 12 unit Insulin Human Lispro (Humalog Low) 0 units SC ACHS [facility] PRN Reason: Protocol Last Admin: 01/18/18 21:40 Dose: Not Given Insulin Human Regular (Humulin R) 3 units SC AC [facility] Last Admin: 01/18/18 16:25 Dose: 3 units Lisinopril (Zestril) 10 mg PO DAILY [facility] Last Admin: 01/18/18 09:22 Dose: 10 mg Lorazepam (Ativan) 0.5 mg PO BID PRN; Protocol PRN Reason: anxiety and restlessness Multivitamins/Minerals (Therapeutic-M Tab) 1 tab PO 0800 [facility] Last Admin: 01/18/18 09:22 Dose: 1 tab Pantoprazole Sodium (Protonix Ec Tab) 40 mg PO 0600 [facility] Last Admin: 01/19/18 05:06 Dose: 40 mg Quetiapine Fumarate (Seroquel) 12.5 mg PO HS PRN; Protocol PRN Reason: Agitation Last Admin: 01/17/18 22:08 Dose: 12.5 mg Thiamine HCl (Vitamin B1 Tab) 100 mg PO DAILY [facility] Last Admin: 01/18/18 09:22 Dose: 100 mg Zinc Sulfate (Zinc Sulfate 220 Mg Cap) 220 mg PO DAILY [facility] Last Admin: 01/18/18 09:22 Dose: 220 mg - Labs Labs: 01/18/18 06:19 01/18/18 06:19 PT 12.5 SECONDS (9.4-12.5) 12/09/17 10:00 INR 1.09 (0.93-1.08) H 12/09/17 10:00 APTT 28.3 Seconds (25.1-36.5) 11/30/17 05:30 - Constitutional Appears: Non-toxic, No Acute Distress - Head Exam Head Exam: ATRAUMATIC, NORMOCEPHALIC - Eye Exam Eye Exam: EOMI, Normal appearance - ENT Exam ENT Exam: Mucous Membranes Moist - Neck Exam Neck Exam: Normal Inspection - Respiratory Exam Respiratory Exam: Clear to Ausculation Bilateral, NORMAL BREATHING PATTERN. absent: Accessory Muscle Use - Cardiovascular Exam Cardiovascular Exam: RRR, +S1, +S2 - GI/Abdominal Exam GI & Abdominal Exam: Soft, Normal Bowel Sounds - Back Exam Back Exam: NORMAL INSPECTION. absent: CVA tenderness (L), CVA tenderness (R) - Neurological Exam Neurological Exam: Alert, Awake, Oriented x3 - Psychiatric Exam Psychiatric exam: Depressed - Skin Skin Exam: Dry, Intact, Normal Color, Warm Additional comments: nails appear long Assessment and Plan - Assessment and Plan (Free Text) Assessment: 57 year old male with unknown past medical history who was brought in via EMS for AMS covered in feces in his apartment. 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 He completed course of IV ceftriaxone for his bacteremia and is pending Transesophageal Echocardiogram and colonoscopy to rule out endocarditis and colon cancer, respectively. Important to note, patient is unable to give consent for TAHIR and colonoscopy secondary to being not of decision-making capacity. Pending state guardianship for further placement. Plan: 1) AMS resolved - Executive function is improved - Continue with delirium precautions - Patient able to follow some complex commands; shows total lack of motivation for even simple tasks; answers most questions with only one-word answers; unable to care for himself or get out of bed on his own - Patient likely depressed; continue Celexa 2) Bacteremia with Strep Viridans/Mitis and Coag Neg Staph Bacteremia - Blood cultures negative since 12/04/17 - Completed 6 week course of antibiotics - Will continue to monitor WBC, ESR, and CRP weekly or more, if indicated - Psychiatry, Cardiology, Neurology and ID consulted, all recommendations appreciated - PT/OT recommending JOSIAH upon discharge 3) Colonic Neoplasm -Flexible sigmoidoscopy/Colonoscopy to be done when consent can be obtained -GI consulted, all recommendations appreciated 4) Ischemic Stroke - Continue ASA 81mg and Lipitor 20mg 5) History of Alcohol Abuse/Withdrawal - PO Folate,Thiamine, and Multivitamin supplements - Fall, Seizure, and Aspiration precautions 6) DM II -Blood glucose moderately controlled -Levemir 12 units HS -Continue regular insulin 3u AC -Continue insulin lispart sliding scale low for additional coverage -Carb Consistent Diet 7) HTN - Continue Lisinopril 10mg - Norvasc 10mg PO daily 8) Sacral decubitus: resolved - Continue Q2h repositioning as patient tolerates - OOB to chair; patient is refusing. 9) Affective disorder, unspecified - Geodon PRN - Celexa 10 mg PO Daily - Seroquel HS - Ativan 0.5 mg BID [facility] - Psychiatry consulted, recommendations noted 10) GI/DVT prophylaxis - Protonix 40 daily - Lovenox 40 SC 11) Long nails - Podiatry consulted Disposition: The patient lack decision making capacity. He does not has understanding of his diagnosis, medical treatment, potential benefit and risk associated with and without treatment. The patient has multiple medical condition, getting treatment for possible endocarditis, gram positive bacteremia and colonic lesion could be malignant and CVA. Patient has dementia likely due to alcohol abuse. Patient does not has any behavior problem. Basically at this time, patient does not has capacity to make decision for himself. He need group home care and supervision at this time, need help in medication, feeding and change of position. <Deanna Schumacher - Last Filed: 01/19/18 17:14> Objective - Vital Signs/Intake and Output Vital Signs (last 24 hours): Temp Pulse Resp BP Pulse Ox 98.2 F 95 H 20 113/75 92 L 01/19/18 16:00 01/19/18 16:00 01/19/18 16:00 01/19/18 16:00 01/19/18 16:00 Intake and Output: 01/19/18 01/19/18 06:59 18:59 Intake Total 660 Balance 660 - Medications Medications: Current Medications Amlodipine Besylate (Norvasc) 10 mg PO DAILY [facility] Last Admin: 01/19/18 09:55 Dose: 10 mg Aspirin (Ecotrin) 81 mg PO DAILY [facility] Last Admin: 01/19/18 09:53 Dose: 81 mg Atorvastatin Calcium (Lipitor) 20 mg PO DIN [facility] Last Admin: 01/19/18 17:02 Dose: 20 mg Citalopram Hydrobromide (Celexa) 10 mg PO DAILY [facility] Last Admin: 01/19/18 09:53 Dose: 10 mg Clotrimazole (Lotrimin Af 1%) 0 ml TOP BID [facility] Last Admin: 01/19/18 17:02 Dose: 1 applic Enoxaparin Sodium (Lovenox) 40 mg SC DAILY [facility] PRN Reason: Protocol Last Admin: 01/19/18 09:54 Dose: 40 mg Folic Acid (Folic Acid) 1 mg PO DAILY [facility] Last Admin: 01/19/18 09:54 Dose: 1 mg Insulin Detemir (Levemir) 12 unit SC HS [facility] Last Admin: 01/18/18 21:39 Dose: 12 unit Insulin Human Lispro (Humalog Low) 0 units SC ACHS [facility] PRN Reason: Protocol Last Admin: 01/19/18 16:11 Dose: Not Given Insulin Human Regular (Humulin R) 3 units SC AC [facility] Last Admin: 04/04/18 17:01 Dose: 3 units Lisinopril (Zestril) 10 mg PO DAILY [facility] Last Admin: 01/19/18 09:56 Dose: 10 mg Multivitamins/Minerals (Therapeutic-M Tab) 1 tab PO 0800 [facility] Last Admin: 01/19/18 08:36 Dose: 1 tab Pantoprazole Sodium (Protonix Ec Tab) 40 mg PO 0600 [facility] Last Admin: 01/19/18 05:06 Dose: 40 mg Quetiapine Fumarate (Seroquel) 12.5 mg PO HS PRN; Protocol PRN Reason: Agitation Last Admin: 01/17/18 22:08 Dose: 12.5 mg Thiamine HCl (Vitamin B1 Tab) 100 mg PO DAILY [facility] Last Admin: 01/19/18 09:56 Dose: 100 mg Zinc Sulfate (Zinc Sulfate 220 Mg Cap) 220 mg PO DAILY [facility] Last Admin: 01/19/18 09:56 Dose: 220 mg - Labs Labs: 01/18/18 06:19 01/18/18 06:19 PT 12.5 SECONDS (9.4-12.5) 12/09/17 10:00 INR 1.09 (0.93-1.08) H 12/09/17 10:00 APTT 28.3 Seconds (25.1-36.5) 11/30/17 05:30 Attending/Attestation - Attestation I have personally seen and examined this patient.: Yes I have fully participated in the care of the patient.: Yes I have reviewed all pertinent clinical information, including history, physical exam and plan: Yes Notes (Text): 01/19/18 17:14 Medical record note made by the resident after discussion with my direction and input after the patient was personally seen and examined by me. I have reviewed the chart and agree that the record accurately reflects by personal performance of the history, physical exam, data review, and medical decision-making, in the course for the patient. I have also personally directed the plan of care.
[2018-01-19] MEDS: Insulin Regular 1 UNITS/0.01 ML ML SC SCH ×3 (07:35→17:01)
[2018-01-19] MEDS: Insulin Lispro (humaLOG) LOW Coverage SC SCH ×4 (08:23→21:47)
[2018-01-19] MEDS: Multivitamin With Minerals Tab PO SCH (08:36)
[2018-01-19] MEDS: Clotrimazole 1% Top Soln(10 ml) TOP SCH ×2 (09:54→17:02)
[2018-01-19] MEDS: Enoxaparin 40 mg Syringe SC SCH (09:54)
--- NOTE | 2018-01-19 14:50 | US ---
PROCEDURE: Lower extremity LESLEY exam HISTORY: Peripheral vascular disease with pain and claudication. Diabetes. Smoker. PHYSICIAN(S): Renard Alfaro MD. FINDINGS: The right resting LESLEY is relatively normal, 0.93. The left resting LESLEY is mildly abnormal, 0.72 The brachial systolic pressures are symmetric. The high thigh pressures and waveforms are relatively normal. The calf PVR waveforms augment normally. No significant gradients are noted across the thighs. The ankle and metatarsal waveforms are mildly blunted bilaterally. This is consistent with bilateral tibial disease. IMPRESSION: 1. Normal right LESLEY at rest. Mildly abnormal left LESLEY at rest. 2. Bilateral tibial disease.
[2018-01-19] MEDS: Insulin Detemir 100 units/ml Vial (Levemir) SC SCH (21:46)
[2018-01-20] MEDS: Pantoprazole 40 mg EC Tab PO SCH (05:52)
[2018-01-20] MEDS: Insulin Lispro (humaLOG) LOW Coverage SC SCH ×4 (08:10→22:09)
[2018-01-20] MEDS: Enoxaparin 40 mg Syringe SC SCH (09:07)
[2018-01-20] MEDS: Insulin Regular 1 UNITS/0.01 ML ML SC SCH ×3 (09:07→17:33)
[2018-01-20] MEDS: Multivitamin With Minerals Tab PO SCH (09:09)
[2018-01-20] MEDS: Clotrimazole 1% Top Soln(10 ml) TOP SCH ×2 (09:11→17:35)
--- NOTE | 2018-01-20 10:12 | CP.PCM.PN ---
<Nikita Hurley - Last Filed: 01/20/18 11:35> Subjective - Date & Time of Evaluation Date of Evaluation: 01/20/18 Time of Evaluation: 10:10 - Subjective Subjective: Patient denies any fever, chills, palpitations, or rash. He endorses no complaints. Nurse reports no events overnight and that the patient is being moved in bed periodically throughout the day. Objective - Vital Signs/Intake and Output Vital Signs (last 24 hours): Temp Pulse Resp BP Pulse Ox 98.3 F 86 20 117/81 95 01/20/18 08:25 01/20/18 08:25 01/20/18 08:25 01/20/18 09:08 01/20/18 08:25 Intake and Output: 01/20/18 01/20/18 06:59 18:59 Intake Total 600 Balance 600 - Medications Medications: Current Medications Amlodipine Besylate (Norvasc) 10 mg PO DAILY [facility] Last Admin: 01/20/18 09:08 Dose: 10 mg Aspirin (Ecotrin) 81 mg PO DAILY [facility] Last Admin: 01/20/18 09:08 Dose: 81 mg Atorvastatin Calcium (Lipitor) 20 mg PO DIN [facility] Last Admin: 01/19/18 17:02 Dose: 20 mg Citalopram Hydrobromide (Celexa) 10 mg PO DAILY [facility] Last Admin: 01/20/18 09:08 Dose: 10 mg Clotrimazole (Lotrimin Af 1%) 0 ml TOP BID [facility] Last Admin: 01/20/18 09:11 Dose: 1 applic Enoxaparin Sodium (Lovenox) 40 mg SC DAILY [facility] PRN Reason: Protocol Last Admin: 01/20/18 09:07 Dose: 40 mg Folic Acid (Folic Acid) 1 mg PO DAILY [facility] Last Admin: 01/20/18 09:08 Dose: 1 mg Insulin Detemir (Levemir) 12 unit SC HS [facility] Last Admin: 01/19/18 21:46 Dose: 12 unit Insulin Human Lispro (Humalog Low) 0 units SC ACHS [facility] PRN Reason: Protocol Last Admin: 01/20/18 08:10 Dose: Not Given Insulin Human Regular (Humulin R) 3 units SC AC [facility] Last Admin: 01/20/18 09:07 Dose: 3 units Lisinopril (Zestril) 10 mg PO DAILY [facility] Last Admin: 01/20/18 09:08 Dose: 10 mg Multivitamins/Minerals (Therapeutic-M Tab) 1 tab PO 0800 [facility] Last Admin: 01/20/18 09:09 Dose: 1 tab Pantoprazole Sodium (Protonix Ec Tab) 40 mg PO 0600 [facility] Last Admin: 01/20/18 05:52 Dose: 40 mg Quetiapine Fumarate (Seroquel) 12.5 mg PO HS PRN; Protocol PRN Reason: Agitation Last Admin: 01/17/18 22:08 Dose: 12.5 mg Thiamine HCl (Vitamin B1 Tab) 100 mg PO DAILY [facility] Last Admin: 01/20/18 09:08 Dose: 100 mg Zinc Sulfate (Zinc Sulfate 220 Mg Cap) 220 mg PO DAILY [facility] Last Admin: 01/20/18 09:08 Dose: 220 mg - Labs Labs: 01/18/18 06:19 01/18/18 06:19 PT 12.5 SECONDS (9.4-12.5) 12/09/17 10:00 INR 1.09 (0.93-1.08) H 12/09/17 10:00 APTT 28.3 Seconds (25.1-36.5) 11/30/17 05:30 - Constitutional Appears: Non-toxic, No Acute Distress - Head Exam Head Exam: ATRAUMATIC, NORMOCEPHALIC - Eye Exam Eye Exam: Normal appearance - ENT Exam ENT Exam: Mucous Membranes Moist, Normal Oropharynx - Neck Exam Neck Exam: Normal Inspection - Respiratory Exam Respiratory Exam: Clear to Ausculation Bilateral, NORMAL BREATHING PATTERN. absent: Accessory Muscle Use - Cardiovascular Exam Cardiovascular Exam: RRR, +S1, +S2 - GI/Abdominal Exam GI & Abdominal Exam: Soft, Normal Bowel Sounds - Extremities Exam Extremities Exam: Normal Inspection - Neurological Exam Neurological Exam: Alert, Awake Additional comments: oriented to person and place, but not circumstance - Psychiatric Exam Psychiatric exam: Normal Affect, Normal Mood - Skin Skin Exam: Dry, Intact, Normal Color, Warm Assessment and Plan - Assessment and Plan (Free Text) Assessment: 57 year old male with unknown past medical history who was brought in via EMS for AMS covered in feces in his apartment. 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 He completed course of IV ceftriaxone for his bacteremia and is pending Transesophageal Echocardiogram and colonoscopy to rule out endocarditis and colon cancer, respectively. Important to note, patient is unable to give consent for TAHIR and colonoscopy secondary to being not of decision-making capacity. Pending state guardianship for further placement. Physical therapy re-consulted given patient is bed-bound and refusing to get out of bed and is at increased risk of developing contractures, etc. Plan: 1) AMS resolved - Executive function is improved - Continue with delirium precautions - Patient able to follow some complex commands; shows total lack of motivation for even simple tasks; answers most questions with only one-word answers; unable to care for himself or get out of bed on his own - Patient likely depressed; continue Celexa 2) Bacteremia with Strep Viridans/Mitis and Coag Neg Staph Bacteremia - Blood cultures negative since 12/04/17 - Completed 6 week course of antibiotics - Will continue to monitor WBC, ESR, and CRP weekly or more, if indicated - Psychiatry, Cardiology, Neurology and ID consulted, all recommendations appreciated - PT/OT recommending JOSIAH upon discharge 3) Colonic Neoplasm -Flexible sigmoidoscopy/Colonoscopy to be done when consent can be obtained -GI consulted, all recommendations appreciated 4) Ischemic Stroke - Continue ASA 81mg and Lipitor 20mg 5) History of Alcohol Abuse/Withdrawal - PO Folate,Thiamine, and Multivitamin supplements - Fall, Seizure, and Aspiration precautions 6) DM II -Blood glucose moderately controlled -Levemir 12 units HS -Continue regular insulin 3u AC -Continue insulin lispart sliding scale low for additional coverage -Carb Consistent Diet 7) HTN - Continue Lisinopril 10mg - Norvasc 10mg PO daily 8) Sacral decubitus: resolved - Continue Q2h repositioning as patient tolerates - OOB to chair; patient is refusing. 9) Affective disorder, unspecified - Celexa 10 mg PO Daily - Seroquel HS - Psychiatry consulted, recommendations noted 10) GI/DVT prophylaxis - Protonix 40 daily - Lovenox 40 SC Disposition: The patient lack decision making capacity. He does not has understanding of his diagnosis, medical treatment, potential benefit and risk associated with and without treatment. The patient has multiple medical condition, getting treatment for possible endocarditis, gram positive bacteremia and colonic lesion could be malignant and CVA. Patient has dementia likely due to alcohol abuse. Patient does not has any behavior problem. Basically at this time, patient does not has capacity to make decision for himself. He need foundry tender care and supervision at this time, need help in medication, feeding and change of position. <Deanna Schumacher - Last Filed: 01/20/18 15:03> Objective - Vital Signs/Intake and Output Vital Signs (last 24 hours): Temp Pulse Resp BP Pulse Ox 98.3 F 86 20 117/81 95 01/20/18 08:25 01/20/18 08:25 01/20/18 08:25 01/20/18 09:08 01/20/18 08:25 Intake and Output: 01/20/18 01/20/18 06:59 18:59 Intake Total 600 Balance 600 - Medications Medications: Current Medications Amlodipine Besylate (Norvasc) 10 mg PO DAILY [facility] Last Admin: 01/20/18 09:08 Dose: 10 mg Aspirin (Ecotrin) 81 mg PO DAILY [facility] Last Admin: 01/20/18 09:08 Dose: 81 mg Atorvastatin Calcium (Lipitor) 20 mg PO DIN [facility] Last Admin: 01/19/18 17:02 Dose: 20 mg Citalopram Hydrobromide (Celexa) 10 mg PO DAILY [facility] Last Admin: 01/20/18 09:08 Dose: 10 mg Clotrimazole (Lotrimin Af 1%) 0 ml TOP BID [facility] Last Admin: 01/20/18 09:11 Dose: 1 applic Enoxaparin Sodium (Lovenox) 40 mg SC DAILY [facility] PRN Reason: Protocol Last Admin: 01/20/18 09:07 Dose: 40 mg Folic Acid (Folic Acid) 1 mg PO DAILY [facility] Last Admin: 01/20/18 09:08 Dose: 1 mg Insulin Detemir (Levemir) 12 unit SC HS [facility] Last Admin: 01/19/18 21:46 Dose: 12 unit Insulin Human Lispro (Humalog Low) 0 units SC ACHS [facility] PRN Reason: Protocol Last Admin: 01/20/18 13:16 Dose: 1 units Insulin Human Regular (Humulin R) 3 units SC AC [facility] Last Admin: 01/20/18 13:16 Dose: 3 units Lisinopril (Zestril) 10 mg PO DAILY [facility] Last Admin: 01/20/18 09:08 Dose: 10 mg Multivitamins/Minerals (Therapeutic-M Tab) 1 tab PO 0800 [facility] Last Admin: 01/20/18 09:09 Dose: 1 tab Pantoprazole Sodium (Protonix Ec Tab) 40 mg PO 0600 [facility] Last Admin: 01/20/18 05:52 Dose: 40 mg Quetiapine Fumarate (Seroquel) 12.5 mg PO HS PRN; Protocol PRN Reason: Agitation Last Admin: 01/17/18 22:08 Dose: 12.5 mg Thiamine HCl (Vitamin B1 Tab) 100 mg PO DAILY [facility] Last Admin: 01/20/18 09:08 Dose: 100 mg Zinc Sulfate (Zinc Sulfate 220 Mg Cap) 220 mg PO DAILY [facility] Last Admin: 01/20/18 09:08 Dose: 220 mg - Labs Labs: 01/18/18 06:19 01/18/18 06:19 PT 12.5 SECONDS (9.4-12.5) 12/09/17 10:00 INR 1.09 (0.93-1.08) H 12/09/17 10:00 APTT 28.3 Seconds (25.1-36.5) 11/30/17 05:30 Attending/Attestation - Attestation I have personally seen and examined this patient.: Yes I have fully participated in the care of the patient.: Yes I have reviewed all pertinent clinical information, including history, physical exam and plan: Yes Notes (Text): 01/20/18 15:03 Medical record note made by the resident after discussion with my direction and input after the patient was personally seen and examined by me. I have reviewed the chart and agree that the record accurately reflects by personal performance of the history, physical exam, data review, and medical decision-making, in the course for the patient. I have also personally directed the plan of care. Patient is stable at his base line, he is awaiting guardianship and placement.
--- NOTE | 2018-01-20 11:19 | CP.PCM.PN ---
Subjective - Date & Time of Evaluation Date of Evaluation: 01/20/18 Time of Evaluation: 10:10 - Subjective Subjective: Afebrile, not in distress, no diarrhea. Objective - Vital Signs/Intake and Output Vital Signs (last 24 hours): Temp Pulse Resp BP Pulse Ox 98.3 F 86 20 117/81 95 01/20/18 08:25 01/20/18 08:25 01/20/18 08:25 01/20/18 08:25 01/20/18 08:25 Intake and Output: 01/20/18 01/20/18 06:59 18:59 Intake Total 600 Balance 600 - Medications Medications: Current Medications Amlodipine Besylate (Norvasc) 10 mg PO DAILY [facility] Last Admin: 01/19/18 09:55 Dose: 10 mg Aspirin (Ecotrin) 81 mg PO DAILY [facility] Last Admin: 01/19/18 09:53 Dose: 81 mg Atorvastatin Calcium (Lipitor) 20 mg PO DIN [facility] Last Admin: 01/19/18 17:02 Dose: 20 mg Citalopram Hydrobromide (Celexa) 10 mg PO DAILY [facility] Last Admin: 01/19/18 09:53 Dose: 10 mg Clotrimazole (Lotrimin Af 1%) 0 ml TOP BID [facility] Last Admin: 01/19/18 17:02 Dose: 1 applic Enoxaparin Sodium (Lovenox) 40 mg SC DAILY [facility] PRN Reason: Protocol Last Admin: 01/19/18 09:54 Dose: 40 mg Folic Acid (Folic Acid) 1 mg PO DAILY [facility] Last Admin: 01/19/18 09:54 Dose: 1 mg Insulin Detemir (Levemir) 12 unit SC HS [facility] Last Admin: 01/19/18 21:46 Dose: 12 unit Insulin Human Lispro (Humalog Low) 0 units SC ACHS [facility] PRN Reason: Protocol Last Admin: 01/20/18 08:10 Dose: Not Given Insulin Human Regular (Humulin R) 3 units SC AC [facility] Last Admin: 01/19/18 17:01 Dose: 3 units Lisinopril (Zestril) 10 mg PO DAILY [facility] Last Admin: 01/19/18 09:56 Dose: 10 mg Multivitamins/Minerals (Therapeutic-M Tab) 1 tab PO 0800 [facility] Last Admin: 01/19/18 08:36 Dose: 1 tab Pantoprazole Sodium (Protonix Ec Tab) 40 mg PO 0600 [facility] Last Admin: 01/20/18 05:52 Dose: 40 mg Quetiapine Fumarate (Seroquel) 12.5 mg PO HS PRN; Protocol PRN Reason: Agitation Last Admin: 01/17/18 22:08 Dose: 12.5 mg Thiamine HCl (Vitamin B1 Tab) 100 mg PO DAILY [facility] Last Admin: 01/19/18 09:56 Dose: 100 mg Zinc Sulfate (Zinc Sulfate 220 Mg Cap) 220 mg PO DAILY [facility] Last Admin: 01/19/18 09:56 Dose: 220 mg - Labs Labs: 01/18/18 06:19 01/18/18 06:19 PT 12.5 SECONDS (9.4-12.5) 12/09/17 10:00 INR 1.09 (0.93-1.08) H 12/09/17 10:00 APTT 28.3 Seconds (25.1-36.5) 11/30/17 05:30 - Constitutional Appears: Non-toxic, Chronically Ill - Head Exam Head Exam: NORMAL INSPECTION - Respiratory Exam Respiratory Exam: Decreased Breath Sounds - Cardiovascular Exam Cardiovascular Exam: +S1, +S2 - GI/Abdominal Exam GI & Abdominal Exam: Soft. absent: Tenderness Assessment and Plan - Assessment and Plan (Free Text) Plan: Assessment S/P sepsis due to strep viridans and CoNS bacteremia from right gluteal and back cellulitis S/P multifocal HCAP on top of Influenza A infection S/P Sammie infection of sacral area as well peripheral vascular disease Plan completed 42 days of antibiotics - continue to monitor clinically off antibiotics since he is at risk for hospital-acquired infections
[2018-01-20] MEDS: Insulin Detemir 100 units/ml Vial (Levemir) SC SCH (22:09)
[2018-01-21] MEDS: Pantoprazole 40 mg EC Tab PO SCH (05:49)
--- NOTE | 2018-01-21 06:54 | CP.PCM.PN ---
<Nikita Hurley - Last Filed: 01/21/18 15:43> Subjective - Date & Time of Evaluation Date of Evaluation: 01/21/18 Time of Evaluation: 06:53 - Subjective Subjective: Nikita Hurley DO, PGY-1: Hospitalist Service Patient seen and examined at bedside. Chart review indicates patient's left hip is reddened without an open area. Incontinent of a large amount pasty dark stool. Cleaned & changed. Z guard to entire buttocks & allison rectal area. Also patient refused Physical Therapy. Objective - Vital Signs/Intake and Output Vital Signs (last 24 hours): Temp Pulse Resp BP Pulse Ox 98.6 F 91 H 20 112/73 96 01/20/18 16:00 01/20/18 16:00 01/20/18 16:00 01/20/18 16:00 01/20/18 16:00 Intake and Output: 01/20/18 01/21/18 18:59 06:59 Intake Total 840 Balance 840 - Medications Medications: Current Medications Amlodipine Besylate (Norvasc) 10 mg PO DAILY [facility] Last Admin: 01/20/18 09:08 Dose: 10 mg Aspirin (Ecotrin) 81 mg PO DAILY [facility] Last Admin: 01/20/18 09:08 Dose: 81 mg Atorvastatin Calcium (Lipitor) 20 mg PO DIN [facility] Last Admin: 01/20/18 17:33 Dose: 20 mg Citalopram Hydrobromide (Celexa) 10 mg PO DAILY [facility] Last Admin: 01/20/18 09:08 Dose: 10 mg Clotrimazole (Lotrimin Af 1%) 0 ml TOP BID [facility] Last Admin: 01/20/18 17:35 Dose: 1 applic Enoxaparin Sodium (Lovenox) 40 mg SC DAILY [facility] PRN Reason: Protocol Last Admin: 01/20/18 09:07 Dose: 40 mg Folic Acid (Folic Acid) 1 mg PO DAILY [facility] Last Admin: 01/20/18 09:08 Dose: 1 mg Insulin Detemir (Levemir) [address] [facility] Last Admin: 01/20/18 22:09 Dose: 12 unit Insulin Human Lispro (Humalog Low) 0 units SC [facility] PRN Reason: Protocol Last Admin: 01/20/18 22:09 Dose: Not Given Insulin Human Regular (Humulin R) 3 units SC AC [facility] Last Admin: 01/20/18 17:33 Dose: 3 units Lisinopril (Zestril) 10 mg PO DAILY [facility] Last Admin: 01/20/18 09:08 Dose: 10 mg Multivitamins/Minerals (Therapeutic-M Tab) 1 tab PO 0800 [facility] Last Admin: 01/20/18 09:09 Dose: 1 tab Pantoprazole Sodium (Protonix Ec Tab) 40 mg PO 0600 [facility] Last Admin: 01/21/18 05:49 Dose: 40 mg Quetiapine Fumarate (Seroquel) 12.5 mg PO HS PRN; Protocol PRN Reason: Agitation Last Admin: 01/17/18 22:08 Dose: 12.5 mg Thiamine HCl (Vitamin B1 Tab) 100 mg PO DAILY [facility] Last Admin: 01/20/18 09:08 Dose: 100 mg Zinc Sulfate (Zinc Sulfate 220 Mg Cap) 220 mg PO DAILY [facility] Last Admin: 01/20/18 09:08 Dose: 220 mg - Labs Labs: 01/18/18 06:19 01/18/18 06:19 PT 12.5 SECONDS (9.4-12.5) 12/09/17 10:00 INR 1.09 (0.93-1.08) H 12/09/17 10:00 APTT 28.3 Seconds (25.1-36.5) 11/30/17 05:30 - Head Exam Head Exam: ATRAUMATIC, NORMOCEPHALIC - Eye Exam Eye Exam: EOMI, Normal appearance - ENT Exam ENT Exam: Mucous Membranes Moist, Normal Oropharynx - Neck Exam Neck Exam: Normal Inspection - Respiratory Exam Respiratory Exam: Clear to Ausculation Bilateral, NORMAL BREATHING PATTERN - Cardiovascular Exam Cardiovascular Exam: RRR, +S1, +S2 - GI/Abdominal Exam GI & Abdominal Exam: Soft, Normal Bowel Sounds Assessment and Plan - Assessment and Plan (Free Text) Assessment: 57 year old male with unknown past medical history who was brought in via EMS for AMS covered in feces in his apartment. 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 He completed course of IV ceftriaxone for his bacteremia and is pending Transesophageal Echocardiogram and colonoscopy to rule out endocarditis and colon cancer, respectively. Important to note, patient is unable to give consent for TAHIR and colonoscopy secondary to being not of decision-making capacity. Pending state guardianship for further placement. Physical therapy re-consulted given patient is bed-bound and refusing to get out of bed and is at increased risk of developing contractures, stasis ulcer, and decubiti etc. Plan: 1) AMS resolved - Executive function is improved - Continue with delirium precautions - Patient able to follow some complex commands; shows total lack of motivation for even simple tasks; answers most questions with only one-word answers; unable to care for himself or get out of bed on his own - Patient may hay be depressed; continue Celexa 2) Bacteremia with Strep Viridans/Mitis and Coag Neg Staph Bacteremia - Blood cultures negative since 12/04/17 - Completed 6 week course of antibiotics - Will continue to monitor WBC, ESR, and CRP weekly or more, if indicated - Psychiatry, Cardiology, Neurology and ID consulted, all recommendations appreciated - PT/OT recommending JOSIAH upon discharge 3) Colonic Neoplasm -Flexible sigmoidoscopy/Colonoscopy to be done when consent can be obtained -GI consulted, all recommendations appreciated 4) Ischemic Stroke - Continue ASA 81mg and Lipitor 20mg 5) History of Alcohol Abuse/Withdrawal - PO Folate,Thiamine, and Multivitamin supplements - Fall, Seizure, and Aspiration precautions 6) DM II -Blood glucose moderately controlled -Levemir 12 units HS -Continue regular insulin 3u AC -Continue insulin lispart sliding scale low for additional coverage -Carb Consistent Diet 7) HTN - Continue Lisinopril 10mg - Norvasc 10mg PO daily 8) Sacral decubitus: resolved - Continue Q2h repositioning as patient tolerates - OOB to chair; patient is refusing. - Left hip reddened, will watch for pressure ulcer - Z-guard PRN - Encourage OOB to chair - PT will need see patient at least three times a week (patient refused PT yesterday) 9) Affective disorder, unspecified - Celexa 10 mg PO Daily - Seroquel HS - Psychiatry consulted, recommendations noted 10) GI/DVT prophylaxis - Protonix 40 daily - Lovenox 40 SC - dark stool in the setting of possible CRC will get H&H q2d to monitor for blood loss Disposition: The patient lack decision making capacity. He does not has understanding of his diagnosis, medical treatment, potential benefit and risk associated with and without treatment. The patient has multiple medical condition, getting treatment for possible endocarditis, gram positive bacteremia and colonic lesion could be malignant and CVA. Patient has dementia likely due to alcohol abuse. Patient does not has any behavior problem. Basically at this time, patient does not has capacity to make decision for himself. He need mcc care and supervision at this time, need help in medication, feeding and change of position. <Deanna Schumacher - Last Filed: 01/22/18 15:28> Objective - Vital Signs/Intake and Output Vital Signs (last 24 hours): Temp Pulse Resp BP Pulse Ox 97.7 F 90 20 123/89 97 01/22/18 07:58 01/22/18 09:16 01/22/18 07:58 01/22/18 09:16 01/22/18 07:58 Intake and Output: 01/22/18 01/22/18 06:59 18:59 Intake Total 960 840 Output Total 1 Balance 959 840 - Medications Medications: Current Medications Amlodipine Besylate (Norvasc) 10 mg PO DAILY [facility] Last Admin: 01/22/18 09:16 Dose: 10 mg Aspirin (Ecotrin) 81 mg PO DAILY [facility] Last Admin: 01/22/18 09:16 Dose: 81 mg Atorvastatin Calcium (Lipitor) 20 mg PO DIN [facility] Last Admin: 01/21/18 17:32 Dose: 20 mg Citalopram Hydrobromide (Celexa) 10 mg PO DAILY [facility] Last Admin: 01/22/18 09:17 Dose: 10 mg Clotrimazole (Lotrimin Af 1%) 0 ml TOP BID [facility] Last Admin: 01/22/18 09:16 Dose: 1 applic Enoxaparin Sodium (Lovenox) 40 mg SC DAILY [facility] PRN Reason: Protocol Last Admin: 01/22/18 09:15 Dose: 40 mg Folic Acid (Folic Acid) 1 mg PO DAILY [facility] Last Admin: 01/22/18 09:16 Dose: 1 mg Insulin Detemir (Levemir) 12 unit SC HS [facility] Last Admin: 01/21/18 21:56 Dose: 12 unit Insulin Human Lispro (Humalog Low) 0 units SC ACHS [facility] PRN Reason: Protocol Last Admin: 01/22/18 11:46 Dose: 2 units Insulin Human Regular (Humulin R) 3 units SC AC [facility] Last Admin: 01/22/18 11:47 Dose: 3 units Lisinopril (Zestril) 10 mg PO DAILY [facility] Last Admin: 01/22/18 09:16 Dose: 10 mg Multivitamins/Minerals (Therapeutic-M Tab) 1 tab PO 0800 [facility] Last Admin: 01/22/18 09:17 Dose: 1 tab Pantoprazole Sodium (Protonix Ec Tab) 40 mg PO 0600 [facility] Last Admin: 01/22/18 06:25 Dose: 40 mg Quetiapine Fumarate (Seroquel) 12.5 mg PO HS PRN; Protocol PRN Reason: Agitation Last Admin: 01/21/18 21:56 Dose: 12.5 mg Thiamine HCl (Vitamin B1 Tab) 100 mg PO DAILY [facility] Last Admin: 01/22/18 09:16 Dose: 100 mg Zinc Sulfate (Zinc Sulfate 220 Mg Cap) 220 mg PO DAILY [facility] Last Admin: 01/22/18 09:16 Dose: 220 mg - Labs Labs: 01/21/18 08:30 01/18/18 06:19 PT 12.5 SECONDS (9.4-12.5) 12/09/17 10:00 INR 1.09 (0.93-1.08) H 12/09/17 10:00 APTT 28.3 Seconds (25.1-36.5) 11/30/17 05:30 Attending/Attestation - Attestation I have personally seen and examined this patient.: Yes I have fully participated in the care of the patient.: Yes I have reviewed all pertinent clinical information, including history, physical exam and plan: Yes Notes (Text): 01/22/18 15:27 Medical record note made by the resident after discussion with my direction and input after the patient was personally seen and examined by me. I have reviewed the chart and agree that the record accurately reflects by personal performance of the history, physical exam, data review, and medical decision-making, in the course for the patient. I have also personally directed the plan of care.
[2018-01-21 08:44] LABS: BASO # 0.03 K/mm3 (0.0-2.0); BASO % 0.4 % (0.0-3.0); EOS # 0.2 (0.0-0.7); EOS % 2.3 % (1.5-5.0); GRAN # 5.06 (1.4-6.5); HEMOGLOBIN 11.5 g/dL (14.0-18.0); LYMPH # 2.4 (1.2-3.4); LYMPH % 28.8 % (22.0-35.0); MEAN CELL VOLUME 86.6 fl (80.0-105.0); MEAN CORPUSCULAR HGB CONC 33.4 g/dl (31.0-37.0); MEAN PLATELET VOLUME 8.6 fl (7.0-11.0); MONO # 0.7 (0.1-0.6); MONO % 8.5 % (1.0-6.0); RBC 3.97 10^6/uL (3.5-6.1); RED CELL DISTRIBUTION WIDTH 15.5 % (11.5-14.5); WHITE BLOOD COUNT 8.4 10^3/ul (4.5-11.0)
[2018-01-21] MEDS: Insulin Lispro (humaLOG) LOW Coverage SC SCH ×4 (09:21→21:55)
[2018-01-21] MEDS: Insulin Regular 1 UNITS/0.01 ML ML SC SCH ×3 (09:22→17:33)
[2018-01-21] MEDS: Multivitamin With Minerals Tab PO SCH (09:22)
[2018-01-21] MEDS: Enoxaparin 40 mg Syringe SC SCH (09:23)
[2018-01-21] MEDS: Clotrimazole 1% Top Soln(10 ml) TOP SCH ×2 (09:24→17:33)
--- NOTE | 2018-01-21 10:51 | CP.PCM.PN ---
Subjective - Date & Time of Evaluation Date of Evaluation: 01/21/18 Time of Evaluation: 08:35 - Subjective Subjective: Comfortable in bed, afebrile, not in distress. Objective - Vital Signs/Intake and Output Vital Signs (last 24 hours): Temp Pulse Resp BP Pulse Ox 98.6 F 91 H 20 112/73 96 01/20/18 16:00 01/20/18 16:00 01/20/18 16:00 01/20/18 16:00 01/20/18 16:00 Intake and Output: 01/20/18 01/21/18 18:59 06:59 Intake Total 840 Balance 840 - Medications Medications: Current Medications Amlodipine Besylate (Norvasc) 10 mg PO DAILY [facility] Last Admin: 01/20/18 09:08 Dose: 10 mg Aspirin (Ecotrin) 81 mg PO DAILY [facility] Last Admin: 01/20/18 09:08 Dose: 81 mg Atorvastatin Calcium (Lipitor) 20 mg PO DIN [facility] Last Admin: 01/20/18 17:33 Dose: 20 mg Citalopram Hydrobromide (Celexa) 10 mg PO DAILY [facility] Last Admin: 01/20/18 09:08 Dose: 10 mg Clotrimazole (Lotrimin Af 1%) 0 ml TOP BID [facility] Last Admin: 01/20/18 17:35 Dose: 1 applic Enoxaparin Sodium (Lovenox) 40 mg SC DAILY [facility] PRN Reason: Protocol Last Admin: 01/20/18 09:07 Dose: 40 mg Folic Acid (Folic Acid) 1 mg PO DAILY [facility] Last Admin: 01/20/18 09:08 Dose: 1 mg Insulin Detemir (Levemir) 12 unit SC HS [facility] Last Admin: 01/20/18 22:09 Dose: 12 unit Insulin Human Lispro (Humalog Low) 0 units SC ACHS [facility] PRN Reason: Protocol Last Admin: 01/20/18 22:09 Dose: Not Given Insulin Human Regular (Humulin R) 3 units SC AC [facility] Last Admin: 01/20/18 17:33 Dose: 3 units Lisinopril (Zestril) 10 mg PO DAILY [facility] Last Admin: 01/20/18 09:08 Dose: 10 mg Multivitamins/Minerals (Therapeutic-M Tab) 1 tab PO 0800 [facility] Last Admin: 04/05/18 09:09 Dose: 1 tab Pantoprazole Sodium (Protonix Ec Tab) 40 mg PO 0600 [facility] Last Admin: 01/21/18 05:49 Dose: 40 mg Quetiapine Fumarate (Seroquel) 12.5 mg PO HS PRN; Protocol PRN Reason: Agitation Last Admin: 01/17/18 22:08 Dose: 12.5 mg Thiamine HCl (Vitamin B1 Tab) 100 mg PO DAILY [facility] Last Admin: 01/20/18 09:08 Dose: 100 mg Zinc Sulfate (Zinc Sulfate 220 Mg Cap) 220 mg PO DAILY [facility] Last Admin: 01/20/18 09:08 Dose: 220 mg - Labs Labs: 01/18/18 06:19 01/18/18 06:19 PT 12.5 SECONDS (9.4-12.5) 12/09/17 10:00 INR 1.09 (0.93-1.08) H 12/09/17 10:00 APTT 28.3 Seconds (25.1-36.5) 11/30/17 05:30 - Constitutional Appears: Non-toxic, Chronically Ill - Head Exam Head Exam: NORMAL INSPECTION - Respiratory Exam Respiratory Exam: Decreased Breath Sounds - Cardiovascular Exam Cardiovascular Exam: +S1, +S2 - GI/Abdominal Exam GI & Abdominal Exam: Soft. absent: Tenderness Assessment and Plan - Assessment and Plan (Free Text) Plan: Assessment S/P sepsis due to strep viridans and CoNS bacteremia from right gluteal and back cellulitis S/P multifocal HCAP on top of Influenza A infection S/P Sammie infection of sacral area as well peripheral vascular disease Plan completed 42 days of antibiotics - continue to monitor clinically off antibiotics since he is at risk for healthcare-associated infections
[2018-01-21] MEDS: Insulin Detemir 100 units/ml Vial (Levemir) SC SCH (21:56)
[2018-01-22] MEDS: Pantoprazole 40 mg EC Tab PO SCH (06:25)
[2018-01-22] MEDS: Insulin Lispro (humaLOG) LOW Coverage SC SCH ×4 (08:10→22:26)
[2018-01-22] MEDS: Insulin Regular 1 UNITS/0.01 ML ML SC SCH ×3 (08:11→17:10)
[2018-01-22] MEDS: Clotrimazole 1% Top Soln(10 ml) TOP SCH ×3 (09:15→17:10)
[2018-01-22] MEDS: Enoxaparin 40 mg Syringe SC SCH (09:15)
[2018-01-22] MEDS: Multivitamin With Minerals Tab PO SCH (09:17)
--- NOTE | 2018-01-22 12:18 | CP.PCM.PN ---
Subjective - Date & Time of Evaluation Date of Evaluation: 01/22/18 Time of Evaluation: 10:40 - Subjective Subjective: Comfortable, afebrile, no diarrhea. Objective - Vital Signs/Intake and Output Vital Signs (last 24 hours): Temp Pulse Resp BP Pulse Ox 97.6 F 95 H 20 109/75 94 L 01/21/18 16:00 01/21/18 16:00 01/21/18 16:00 01/21/18 16:00 01/21/18 16:00 Intake and Output: 01/22/18 01/22/18 06:59 18:59 Intake Total 960 Output Total 1 Balance 959 - Medications Medications: Current Medications Amlodipine Besylate (Norvasc) 10 mg PO DAILY [facility] Last Admin: 01/21/18 09:22 Dose: 10 mg Aspirin (Ecotrin) 81 mg PO DAILY [facility] Last Admin: 01/21/18 09:22 Dose: 81 mg Atorvastatin Calcium (Lipitor) 20 mg PO DIN [facility] Last Admin: 01/21/18 17:32 Dose: 20 mg Citalopram Hydrobromide (Celexa) 10 mg PO DAILY [facility] Last Admin: 01/21/18 09:22 Dose: 10 mg Clotrimazole (Lotrimin Af 1%) 0 ml TOP BID [facility] Last Admin: 01/21/18 17:33 Dose: 1 applic Enoxaparin Sodium (Lovenox) 40 mg SC DAILY [facility] PRN Reason: Protocol Last Admin: 01/21/18 09:23 Dose: 40 mg Folic Acid (Folic Acid) 1 mg PO DAILY [facility] Last Admin: 01/21/18 09:23 Dose: 1 mg Insulin Detemir (Levemir) 12 unit SC HS [facility] Last Admin: 01/21/18 21:56 Dose: 12 unit Insulin Human Lispro (Humalog Low) 0 units SC ACHS [facility] PRN Reason: Protocol Last Admin: 01/21/18 21:55 Dose: 2 units Insulin Human Regular (Humulin R) 3 units SC AC [facility] Last Admin: 01/21/18 17:33 Dose: 3 units Lisinopril (Zestril) 10 mg PO DAILY [facility] Last Admin: 01/21/18 09:22 Dose: 10 mg Multivitamins/Minerals (Therapeutic-M Tab) 1 tab PO 0800 [facility] Last Admin: 01/21/18 09:22 Dose: 1 tab Pantoprazole Sodium (Protonix Ec Tab) 40 mg PO 0600 [facility] Last Admin: 01/22/18 06:25 Dose: 40 mg Quetiapine Fumarate (Seroquel) 12.5 mg PO HS PRN; Protocol PRN Reason: Agitation Last Admin: 01/21/18 21:56 Dose: 12.5 mg Thiamine HCl (Vitamin B1 Tab) 100 mg PO DAILY [facility] Last Admin: 01/21/18 09:23 Dose: 100 mg Zinc Sulfate (Zinc Sulfate 220 Mg Cap) 220 mg PO DAILY [facility] Last Admin: 01/21/18 09:23 Dose: 220 mg - Labs Labs: 01/21/18 08:30 01/18/18 06:19 PT 12.5 SECONDS (9.4-12.5) 12/09/17 10:00 INR 1.09 (0.93-1.08) H 12/09/17 10:00 APTT 28.3 Seconds (25.1-36.5) 11/30/17 05:30 - Constitutional Appears: Chronically Ill - Head Exam Head Exam: NORMAL INSPECTION - ENT Exam ENT Exam: Mucous Membranes Moist - Neck Exam Neck Exam: absent: Lymphadenopathy, Meningismus - Respiratory Exam Respiratory Exam: Decreased Breath Sounds - Cardiovascular Exam Cardiovascular Exam: +S1, +S2 - GI/Abdominal Exam GI & Abdominal Exam: Soft. absent: Tenderness Assessment and Plan - Assessment and Plan (Free Text) Plan: Assessment S/P sepsis due to strep viridans and CoNS bacteremia from right gluteal and back cellulitis S/P multifocal HCAP on top of Influenza A infection S/P Sammie infection of sacral area as well peripheral vascular disease Plan completed 42 days of antibiotics - continue to monitor clinically off antibiotics since he is at risk for nosocomial infections
--- NOTE | 2018-01-22 17:09 | CP.PCM.PN ---
<Nikita Hurley - Last Filed: 01/22/18 17:09> Subjective - Date & Time of Evaluation Date of Evaluation: 01/22/18 Time of Evaluation: 17:07 - Subjective Subjective: Patient seen and examined at bedside. Patient has not been OOB to chair, outright refusing to move. Nurse reports no events overnight. Objective - Vital Signs/Intake and Output Vital Signs (last 24 hours): Temp Pulse Resp BP Pulse Ox 97.9 F 94 H 20 109/74 97 01/22/18 14:00 01/22/18 14:00 01/22/18 14:00 01/22/18 14:00 01/22/18 07:58 Intake and Output: 01/22/18 01/22/18 06:59 18:59 Intake Total 960 840 Output Total 1 Balance 959 840 - Medications Medications: Current Medications Amlodipine Besylate (Norvasc) 10 mg PO DAILY [facility] Last Admin: 01/22/18 09:16 Dose: 10 mg Aspirin (Ecotrin) 81 mg PO DAILY [facility] Last Admin: 01/22/18 09:16 Dose: 81 mg Atorvastatin Calcium (Lipitor) 20 mg PO DIN [facility] Last Admin: 01/21/18 17:32 Dose: 20 mg Citalopram Hydrobromide (Celexa) 10 mg PO DAILY [facility] Last Admin: 01/22/18 09:17 Dose: 10 mg Clotrimazole (Lotrimin Af 1%) 0 ml TOP BID [facility] Last Admin: 01/22/18 09:16 Dose: 1 applic Enoxaparin Sodium (Lovenox) 40 mg SC DAILY [facility] PRN Reason: Protocol Last Admin: 01/22/18 09:15 Dose: 40 mg Folic Acid (Folic Acid) 1 mg PO DAILY [facility] Last Admin: 01/22/18 09:16 Dose: 1 mg Insulin Detemir (Levemir) 12 unit SC HS [facility] Last Admin: 01/21/18 21:56 Dose: 12 unit Insulin Human Lispro (Humalog Low) 0 units SC ACHS [facility] PRN Reason: Protocol Last Admin: 01/22/18 11:46 Dose: 2 units Insulin Human Regular (Humulin R) 3 units SC AC [facility] Last Admin: 01/22/18 11:47 Dose: 3 units Lisinopril (Zestril) 10 mg PO DAILY [facility] Last Admin: 01/22/18 09:16 Dose: 10 mg Multivitamins/Minerals (Therapeutic-M Tab) 1 tab PO 0800 [facility] Last Admin: 01/22/18 09:17 Dose: 1 tab Pantoprazole Sodium (Protonix Ec Tab) 40 mg PO 0600 [facility] Last Admin: 01/22/18 06:25 Dose: 40 mg Quetiapine Fumarate (Seroquel) 12.5 mg PO HS PRN; Protocol PRN Reason: Agitation Last Admin: 01/21/18 21:56 Dose: 12.5 mg Thiamine HCl (Vitamin B1 Tab) 100 mg PO DAILY [facility] Last Admin: 01/22/18 09:16 Dose: 100 mg Zinc Sulfate (Zinc Sulfate 220 Mg Cap) 220 mg PO DAILY [facility] Last Admin: 01/22/18 09:16 Dose: 220 mg - Labs Labs: 01/21/18 08:30 01/18/18 06:19 PT 12.5 SECONDS (9.4-12.5) 12/09/17 10:00 INR 1.09 (0.93-1.08) H 12/09/17 10:00 APTT 28.3 Seconds (25.1-36.5) 11/30/17 05:30 - Constitutional Appears: Non-toxic, No Acute Distress - Head Exam Head Exam: ATRAUMATIC, NORMOCEPHALIC - Eye Exam Eye Exam: EOMI, Normal appearance - ENT Exam ENT Exam: Mucous Membranes Moist, Normal Oropharynx - Neck Exam Neck Exam: Normal Inspection - Respiratory Exam Respiratory Exam: Clear to Ausculation Bilateral, NORMAL BREATHING PATTERN. absent: Accessory Muscle Use - Cardiovascular Exam Cardiovascular Exam: RRR, +S1, +S2 - GI/Abdominal Exam GI & Abdominal Exam: Soft, Normal Bowel Sounds - Rectal Exam Rectal Exam: Deferred - Extremities Exam Extremities Exam: Normal Inspection - Neurological Exam Neurological Exam: Alert, Awake - Psychiatric Exam Psychiatric exam: Flat Affect - Skin Skin Exam: Dry, Intact, Normal Color, Warm Assessment and Plan - Assessment and Plan (Free Text) Assessment: 57 year old male with unknown past medical history who was brought in via EMS for AMS covered in feces in his apartment. 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 He completed course of IV ceftriaxone for his bacteremia and is pending Transesophageal Echocardiogram and colonoscopy to rule out endocarditis and colon cancer, respectively. Important to note, patient is unable to give consent for TAHIR and colonoscopy secondary to being not of decision-making capacity. Pending state guardianship for further placement. Physical therapy re-consulted given patient is bed-bound and refusing to get out of bed and is at increased risk of developing contractures, stasis ulcer, and decubiti etc. Plan: 1) AMS resolved - Executive function is improved - Continue with delirium precautions - Patient able to follow some complex commands; shows total lack of motivation for even simple tasks; answers most questions with only one-word answers; unable to care for himself or get out of bed on his own - Patient may hay be depressed; continue Celexa 2) Bacteremia with Strep Viridans/Mitis and Coag Neg Staph Bacteremia - Blood cultures negative since 12/04/17 - Completed 6 week course of antibiotics - Will continue to monitor WBC, ESR, and CRP weekly or more, if indicated - Psychiatry, Cardiology, Neurology and ID consulted, all recommendations appreciated - PT/OT recommending JOSIAH upon discharge 3) Colonic Neoplasm -Flexible sigmoidoscopy/Colonoscopy to be done when consent can be obtained -GI consulted, all recommendations appreciated 4) Ischemic Stroke - Continue ASA 81mg and Lipitor 20mg 5) History of Alcohol Abuse/Withdrawal - PO Folate,Thiamine, and Multivitamin supplements - Fall, Seizure, and Aspiration precautions 6) DM II -Blood glucose moderately controlled -Levemir 12 units HS -Continue regular insulin 3u AC -Continue insulin lispart sliding scale low for additional coverage -Carb Consistent Diet 7) HTN - Continue Lisinopril 10mg - Norvasc 10mg PO daily 8) Sacral decubitus: resolved - Continue Q2h repositioning as patient tolerates - OOB to chair; patient is refusing. - Left hip reddened, will watch for pressure ulcer - Z-guard PRN - Encourage OOB to chair - PT will need see patient at least three times a week (patient refused PT yesterday) 9) Affective disorder, unspecified - Celexa 10 mg PO Daily - Seroquel HS - Psychiatry consulted, recommendations noted 10) GI/DVT prophylaxis - Protonix 40 daily - Lovenox 40 SC - dark stool in the setting of possible CRC will get H&H q2d to monitor for blood loss Disposition: The patient lack decision making capacity. He does not has understanding of his diagnosis, medical treatment, potential benefit and risk associated with and without treatment. The patient has multiple medical condition, getting treatment for possible endocarditis, gram positive bacteremia and colonic lesion could be malignant and CVA. Patient has dementia likely due to alcohol abuse. Patient does not has any behavior problem. Basically at this time, patient does not has capacity to make decision for himself. He need usp care and supervision at this time, need help in medication, feeding and change of position. <Deanna Schumacher - Last Filed: 01/23/18 13:41> Objective - Vital Signs/Intake and Output Vital Signs (last 24 hours): Temp Pulse Resp BP Pulse Ox 97.9 F 88 20 106/67 93 L 01/23/18 07:24 01/23/18 07:24 01/23/18 07:24 01/23/18 09:31 01/23/18 07:24 Intake and Output: 01/23/18 01/23/18 06:59 18:59 Intake Total 840 Balance 840 - Medications Medications: Current Medications Amlodipine Besylate (Norvasc) 10 mg PO DAILY [facility] Last Admin: 01/23/18 09:31 Dose: 10 mg Aspirin (Ecotrin) 81 mg PO DAILY [facility] Last Admin: 01/23/18 09:31 Dose: 81 mg Atorvastatin Calcium (Lipitor) 20 mg PO DIN [facility] Last Admin: 01/22/18 17:10 Dose: 20 mg Citalopram Hydrobromide (Celexa) 10 mg PO DAILY [facility] Last Admin: 01/23/18 09:31 Dose: 10 mg Clotrimazole (Lotrimin Af 1%) 0 ml TOP BID [facility] Last Admin: 01/23/18 11:31 Dose: 1 applic Enoxaparin Sodium (Lovenox) 40 mg SC DAILY [facility] PRN Reason: Protocol Last Admin: 01/23/18 09:30 Dose: 40 mg Folic Acid (Folic Acid) 1 mg PO DAILY [facility] Last Admin: 01/23/18 09:31 Dose: 1 mg Insulin Detemir (Levemir) 12 unit SC HS [facility] Last Admin: 01/22/18 22:21 Dose: 12 unit Insulin Human Lispro (Humalog Low) 0 units SC [facility] PRN Reason: Protocol Last Admin: 01/23/18 11:35 Dose: 1 units Insulin Human Regular (Humulin R) 3 units SC AC [facility] Last Admin: 01/23/18 11:36 Dose: 3 units Lisinopril (Zestril) 10 mg PO DAILY [facility] Last Admin: 01/23/18 09:31 Dose: 10 mg Multivitamins/Minerals (Therapeutic-M Tab) 1 tab PO 0800 [facility] Last Admin: 01/23/18 07:57 Dose: 1 tab Pantoprazole Sodium (Protonix Ec Tab) 40 mg PO 0600 [facility] Last Admin: 01/23/18 05:06 Dose: 40 mg Quetiapine Fumarate (Seroquel) 12.5 mg PO HS PRN; Protocol PRN Reason: Agitation Last Admin: 01/21/18 21:56 Dose: 12.5 mg Thiamine HCl (Vitamin B1 Tab) 100 mg PO DAILY [facility] Last Admin: 01/23/18 09:33 Dose: 100 mg Zinc Sulfate (Zinc Sulfate 220 Mg Cap) 220 mg PO DAILY [facility] Last Admin: 01/23/18 09:31 Dose: 220 mg - Labs Labs: 01/23/18 08:00 01/18/18 06:19 PT 12.5 SECONDS (9.4-12.5) 12/09/17 10:00 INR 1.09 (0.93-1.08) H 12/09/17 10:00 APTT 28.3 Seconds (25.1-36.5) 11/30/17 05:30 Attending/Attestation - Attestation I have fully participated in the care of the patient.: Yes I have reviewed all pertinent clinical information, including history, physical exam and plan: Yes Notes (Text): 01/23/18 13:36 Medical record note made by the resident after discussion with my direction and input after the patient was personally seen and examined by me. I have reviewed the chart and agree that the record accurately reflects by personal performance of the history, physical exam, data review, and medical decision-making, in the course for the patient. I have also personally directed the plan of care. 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 Case management is working on guardianship/ disposition 01/23/18 13:40
[2018-01-22] MEDS: Insulin Detemir 100 units/ml Vial (Levemir) SC SCH (22:21)
[2018-01-23] MEDS: Pantoprazole 40 mg EC Tab PO SCH (05:06)
[2018-01-23] MEDS: Insulin Lispro (humaLOG) LOW Coverage SC SCH ×4 (07:27→21:44)
[2018-01-23] MEDS: Multivitamin With Minerals Tab PO SCH (07:57)
[2018-01-23] MEDS: Insulin Regular 1 UNITS/0.01 ML ML SC SCH ×3 (07:57→16:32)
[2018-01-23 08:05] LABS: BASO # 0.03 K/mm3 (0.0-2.0); BASO % 0.4 % (0.0-3.0); EOS # 0.2 (0.0-0.7); EOS % 2.6 % (1.5-5.0); GRAN # 4.22 (1.4-6.5); GRAN % 53.9 % (50.0-68.0); HEMOGLOBIN 11.4 g/dL (14.0-18.0); LYMPH # 2.6 (1.2-3.4); LYMPH % 33.8 % (22.0-35.0); MEAN CELL VOLUME 87.4 fl (80.0-105.0); MEAN CORPUSCULAR HEMOGLOBIN 29.4 pg (25.0-35.0); MEAN CORPUSCULAR HGB CONC 33.6 g/dl (31.0-37.0); MONO # 0.7 (0.1-0.6); MONO % 9.3 % (1.0-6.0); RBC 3.88 10^6/uL (3.5-6.1); RED CELL DISTRIBUTION WIDTH 15.5 % (11.5-14.5); WHITE BLOOD COUNT 7.8 10^3/ul (4.5-11.0)
[2018-01-23] MEDS: Enoxaparin 40 mg Syringe SC SCH (09:30)
[2018-01-23] MEDS: Clotrimazole 1% Top Soln(10 ml) TOP SCH ×2 (11:31→17:31)
--- NOTE | 2018-01-23 12:05 | CP.PCM.PN ---
Subjective - Date & Time of Evaluation Date of Evaluation: 01/23/18 Time of Evaluation: 10:15 - Subjective Subjective: Comfortable, afebrile. Objective - Vital Signs/Intake and Output Vital Signs (last 24 hours): Temp Pulse Resp BP Pulse Ox 97.9 F 88 20 117/79 93 L 01/23/18 07:24 01/23/18 07:24 01/23/18 07:24 01/23/18 07:24 01/23/18 07:24 Intake and Output: 01/23/18 01/23/18 06:59 18:59 Intake Total 840 Balance 840 - Medications Medications: Current Medications Amlodipine Besylate (Norvasc) 10 mg PO DAILY [facility] Last Admin: 01/22/18 09:16 Dose: 10 mg Aspirin (Ecotrin) 81 mg PO DAILY [facility] Last Admin: 01/22/18 09:16 Dose: 81 mg Atorvastatin Calcium (Lipitor) 20 mg PO DIN [facility] Last Admin: 01/22/18 17:10 Dose: 20 mg Citalopram Hydrobromide (Celexa) 10 mg PO DAILY [facility] Last Admin: 01/22/18 09:17 Dose: 10 mg Clotrimazole (Lotrimin Af 1%) 0 ml TOP BID [facility] Last Admin: 01/22/18 17:10 Dose: 1 applic Enoxaparin Sodium (Lovenox) 40 mg SC DAILY [facility] PRN Reason: Protocol Last Admin: 01/22/18 09:15 Dose: 40 mg Folic Acid (Folic Acid) 1 mg PO DAILY [facility] Last Admin: 01/22/18 09:16 Dose: 1 mg Insulin Detemir (Levemir) 12 unit SC HS [facility] Last Admin: 01/22/18 22:21 Dose: 12 unit Insulin Human Lispro (Humalog Low) 0 units SC ACHS [facility] PRN Reason: Protocol Last Admin: 01/23/18 07:27 Dose: Not Given Insulin Human Regular (Humulin R) 3 units SC AC [facility] Last Admin: 01/23/18 07:57 Dose: 3 units Lisinopril (Zestril) 10 mg PO DAILY [facility] Last Admin: 01/22/18 09:16 Dose: 10 mg Multivitamins/Minerals (Therapeutic-M Tab) 1 tab PO 0800 [facility] Last Admin: 01/23/18 07:57 Dose: 1 tab Pantoprazole Sodium (Protonix Ec Tab) 40 mg PO 0600 [facility] Last Admin: 01/23/18 05:06 Dose: 40 mg Quetiapine Fumarate (Seroquel) 12.5 mg PO HS PRN; Protocol PRN Reason: Agitation Last Admin: 01/21/18 21:56 Dose: 12.5 mg Thiamine HCl (Vitamin B1 Tab) 100 mg PO DAILY [facility] Last Admin: 01/22/18 09:16 Dose: 100 mg Zinc Sulfate (Zinc Sulfate 220 Mg Cap) 220 mg PO DAILY [facility] Last Admin: 01/22/18 09:16 Dose: 220 mg - Labs Labs: 01/23/18 08:00 01/18/18 06:19 PT 12.5 SECONDS (9.4-12.5) 12/09/17 10:00 INR 1.09 (0.93-1.08) H 12/09/17 10:00 APTT 28.3 Seconds (25.1-36.5) 11/30/17 05:30 - Constitutional Appears: Non-toxic, Chronically Ill - Head Exam Head Exam: NORMAL INSPECTION - Neck Exam Neck Exam: absent: Meningismus - Respiratory Exam Respiratory Exam: Decreased Breath Sounds - Cardiovascular Exam Cardiovascular Exam: +S1, +S2 - GI/Abdominal Exam GI & Abdominal Exam: Soft. absent: Tenderness Assessment and Plan - Assessment and Plan (Free Text) Plan: Assessment S/P sepsis due to strep viridans and CoNS bacteremia from right gluteal and back cellulitis S/P multifocal HCAP on top of Influenza A infection S/P Sammie infection of sacral area as well peripheral vascular disease Plan completed 42 days of antibiotics - continue to monitor clinically off antibiotics since he is at risk for hospital-acquired infections
--- NOTE | 2018-01-23 16:42 | CP.PCM.PN ---
<Nikita Hurley - Last Filed: 01/23/18 16:43> Subjective - Date & Time of Evaluation Date of Evaluation: 01/23/18 Time of Evaluation: 10:40 - Subjective Subjective: Clinically unchanged, pending guardianship. No events overnight. Objective - Vital Signs/Intake and Output Vital Signs (last 24 hours): Temp Pulse Resp BP Pulse Ox 97.9 F 88 20 106/67 93 L 01/23/18 07:24 01/23/18 07:24 01/23/18 07:24 01/23/18 09:31 01/23/18 07:24 Intake and Output: 01/23/18 01/23/18 06:59 18:59 Intake Total 840 725 Balance 840 725 - Medications Medications: Current Medications Amlodipine Besylate (Norvasc) 10 mg PO DAILY [facility] Last Admin: 01/23/18 09:31 Dose: 10 mg Aspirin (Ecotrin) 81 mg PO DAILY [facility] Last Admin: 01/23/18 09:31 Dose: 81 mg Atorvastatin Calcium (Lipitor) 20 mg PO DIN [facility] Last Admin: 01/23/18 16:33 Dose: 20 mg Citalopram Hydrobromide (Celexa) 10 mg PO DAILY [facility] Last Admin: 01/23/18 09:31 Dose: 10 mg Clotrimazole (Lotrimin Af 1%) 0 ml TOP BID [facility] Last Admin: 01/23/18 11:31 Dose: 1 applic Enoxaparin Sodium (Lovenox) 40 mg SC DAILY [facility] PRN Reason: Protocol Last Admin: 01/23/18 09:30 Dose: 40 mg Folic Acid (Folic Acid) 1 mg PO DAILY [facility] Last Admin: 01/23/18 09:31 Dose: 1 mg Insulin Detemir (Levemir) 12 unit SC HS [facility] Last Admin: 01/22/18 22:21 Dose: 12 unit Insulin Human Regular (Humulin R) 3 units SC AC [facility] Last Admin: 01/23/18 16:32 Dose: 3 units Lisinopril (Zestril) 10 mg PO DAILY [facility] Last Admin: 01/23/18 09:31 Dose: 10 mg Multivitamins/Minerals (Therapeutic-M Tab) 1 tab PO 0800 [facility] Last Admin: 01/23/18 07:57 Dose: 1 tab Pantoprazole Sodium (Protonix Ec Tab) 40 mg PO 0600 [facility] Last Admin: 01/23/18 05:06 Dose: 40 mg Quetiapine Fumarate (Seroquel) 12.5 mg PO HS PRN; Protocol PRN Reason: Agitation Last Admin: 01/21/18 21:56 Dose: 12.5 mg Thiamine HCl (Vitamin B1 Tab) 100 mg PO DAILY [facility] Last Admin: 01/23/18 09:33 Dose: 100 mg Zinc Sulfate (Zinc Sulfate 220 Mg Cap) 220 mg PO DAILY [facility] Last Admin: 01/23/18 09:31 Dose: 220 mg - Labs Labs: 01/23/18 08:00 01/18/18 06:19 PT 12.5 SECONDS (9.4-12.5) 12/09/17 10:00 INR 1.09 (0.93-1.08) H 12/09/17 10:00 APTT 28.3 Seconds (25.1-36.5) 11/30/17 05:30 - Constitutional Appears: Non-toxic - Head Exam Head Exam: ATRAUMATIC, NORMOCEPHALIC - Eye Exam Eye Exam: EOMI, Normal appearance - ENT Exam ENT Exam: Mucous Membranes Moist - Neck Exam Neck Exam: Normal Inspection - Respiratory Exam Respiratory Exam: Clear to Ausculation Bilateral, NORMAL BREATHING PATTERN - Cardiovascular Exam Cardiovascular Exam: RRR, +S1, +S2 - GI/Abdominal Exam GI & Abdominal Exam: Soft, Normal Bowel Sounds - Extremities Exam Extremities Exam: Normal Inspection - Neurological Exam Neurological Exam: Alert, Awake - Psychiatric Exam Psychiatric exam: Normal Affect, Normal Mood - Skin Skin Exam: Dry, Intact, Normal Color, Warm Assessment and Plan - Assessment and Plan (Free Text) Assessment: 57 year old male with unknown past medical history who was brought in via EMS for AMS covered in feces in his apartment. 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 He completed course of IV ceftriaxone for his bacteremia and is pending Transesophageal Echocardiogram and colonoscopy to rule out endocarditis and colon cancer, respectively. Important to note, patient is unable to give consent for TAHIR and colonoscopy secondary to being not of decision-making capacity. Pending state guardianship for further placement. Physical therapy re-consulted given patient is bed-bound and refusing to get out of bed and is at increased risk of developing contractures, stasis ulcer, and decubiti etc. Plan: 1) AMS resolved - Executive function is improved - Continue with delirium precautions - Patient able to follow some complex commands; shows total lack of motivation for even simple tasks; answers most questions with only one-word answers; unable to care for himself or get out of bed on his own - Patient may hay be depressed; continue Celexa 2) Bacteremia with Strep Viridans/Mitis and Coag Neg Staph Bacteremia - Blood cultures negative since 12/04/17 - Completed 6 week course of antibiotics - Will continue to monitor WBC, ESR, and CRP weekly or more, if indicated - Psychiatry, Cardiology, Neurology and ID consulted, all recommendations appreciated - PT/OT recommending JOSIAH upon discharge 3) Colonic Neoplasm -Flexible sigmoidoscopy/Colonoscopy to be done when consent can be obtained -GI consulted, all recommendations appreciated 4) Ischemic Stroke - Continue ASA 81mg and Lipitor 20mg 5) History of Alcohol Abuse/Withdrawal - PO Folate,Thiamine, and Multivitamin supplements - Fall, Seizure, and Aspiration precautions 6) DM II -Blood glucose moderately controlled -Levemir 12 units HS -Continue regular insulin 3u AC -Continue insulin lispart sliding scale low for additional coverage -Carb Consistent Diet 7) HTN - Continue Lisinopril 10mg - Norvasc 10mg PO daily 8) Sacral decubitus: resolved - Continue Q2h repositioning as patient tolerates - OOB to chair; patient is refusing. - Left hip reddened, will watch for pressure ulcer - Z-guard PRN - Encourage OOB to chair - PT will need see patient at least three times a week (patient refused PT yesterday) 9) Affective disorder, unspecified - Celexa 10 mg PO Daily - Seroquel HS - Psychiatry consulted, recommendations noted 10) GI/DVT prophylaxis - Protonix 40 daily - Lovenox 40 SC Disposition: The patient lack decision making capacity. He does not has understanding of his diagnosis, medical treatment, potential benefit and risk associated with and without treatment. The patient has multiple medical condition, getting treatment for possible endocarditis, gram positive bacteremia and colonic lesion could be malignant and CVA. Patient has dementia likely due to alcohol abuse. Patient does not has any behavior problem. Basically at this time, patient does not has capacity to make decision for himself. He need halfway care and supervision at this time, need help in medication, feeding and change of position. <EndyDenisserach - Last Filed: 01/31/18 09:48> Objective - Vital Signs/Intake and Output Vital Signs (last 24 hours): Temp Pulse Resp BP Pulse Ox 98.3 F 95 H 18 130/79 96 01/31/18 09:14 01/31/18 09:14 01/31/18 09:14 01/31/18 09:14 01/31/18 09:14 Intake and Output: 01/31/18 01/31/18 06:59 18:59 Intake Total 540 Output Total 0 Balance 540 - Medications Medications: Current Medications Amlodipine Besylate (Norvasc) 10 mg PO DAILY [facility] Last Admin: 01/30/18 10:11 Dose: 10 mg Aspirin (Ecotrin) 81 mg PO DAILY [facility] Last Admin: 01/30/18 10:10 Dose: 81 mg Atorvastatin Calcium (Lipitor) 20 mg PO DIN [facility] Last Admin: 01/30/18 18:11 Dose: 20 mg Citalopram Hydrobromide (Celexa) 10 mg PO DAILY [facility] Last Admin: 01/30/18 10:10 Dose: 10 mg Clotrimazole (Lotrimin Af 1%) 0 ml TOP BID [facility] Last Admin: 01/30/18 10:11 Dose: Not Given Enoxaparin Sodium (Lovenox) 40 mg SC DAILY [facility] PRN Reason: Protocol Last Admin: 01/30/18 10:11 Dose: 40 mg Folic Acid (Folic Acid) 1 mg PO DAILY [facility] Last Admin: 01/30/18 10:10 Dose: 1 mg Insulin Detemir (Levemir) 12 unit SC HS [facility] Last Admin: 01/30/18 22:07 Dose: 12 unit Insulin Human Lispro (Humalog Low) 0 units SC ACHS [facility] PRN Reason: Protocol Last Admin: 01/31/18 08:35 Dose: Not Given Insulin Human Regular (Humulin R) 3 units SC AC [facility] Last Admin: 01/31/18 08:35 Dose: Not Given Lisinopril (Zestril) 10 mg PO DAILY [facility] Last Admin: 01/30/18 10:12 Dose: 10 mg Multivitamins/Minerals (Therapeutic-M Tab) 1 tab PO 0800 [facility] Last Admin: 01/30/18 10:12 Dose: 1 tab Pantoprazole Sodium (Protonix Ec Tab) 40 mg PO 0600 [facility] Last Admin: 01/31/18 05:24 Dose: 40 mg Quetiapine Fumarate (Seroquel) 12.5 mg PO HS PRN; Protocol PRN Reason: Agitation Last Admin: 01/28/18 21:42 Dose: 12.5 mg Thiamine HCl (Vitamin B1 Tab) 100 mg PO DAILY [facility] Last Admin: 01/30/18 10:12 Dose: 100 mg Zinc Sulfate (Zinc Sulfate 220 Mg Cap) 220 mg PO DAILY [facility] Last Admin: 01/30/18 10:12 Dose: 220 mg - Labs Labs: 01/31/18 05:30 01/31/18 05:30 PT 12.5 SECONDS (9.4-12.5) 12/09/17 10:00 INR 1.09 (0.93-1.08) H 12/09/17 10:00 APTT 28.3 Seconds (25.1-36.5) 11/30/17 05:30 Attending/Attestation - Attestation I have personally seen and examined this patient.: Yes I have fully participated in the care of the patient.: Yes I have reviewed all pertinent clinical information, including history, physical exam and plan: Yes Notes (Text): 01/31/18 09:48 Medical record note made by the resident after discussion with my direction and input after the patient was personally seen and examined by me. I have reviewed the chart and agree that the record accurately reflects by personal performance of the history, physical exam, data review, and medical decision-making, in the course for the patient. I have also personally directed the plan of care.
[2018-01-23] MEDS: Insulin Detemir 100 units/ml Vial (Levemir) SC SCH (21:46)
[2018-01-24] MEDS: Pantoprazole 40 mg EC Tab PO SCH (05:21)
[2018-01-24] MEDS: Insulin Lispro (humaLOG) LOW Coverage SC SCH ×4 (07:57→21:42)
[2018-01-24] MEDS: Multivitamin With Minerals Tab PO SCH (08:25)
[2018-01-24] MEDS: Insulin Regular 1 UNITS/0.01 ML ML SC SCH ×3 (08:25→17:49)
[2018-01-24] MEDS: Enoxaparin 40 mg Syringe SC SCH (09:19)
[2018-01-24] MEDS: Clotrimazole 1% Top Soln(10 ml) TOP SCH ×2 (09:21→17:52)
--- NOTE | 2018-01-24 09:23 | CP.PCM.PN ---
<Rocael Bowie - Last Filed: 01/24/18 14:22> Subjective - Date & Time of Evaluation Date of Evaluation: 01/24/18 Time of Evaluation: 09:18 - Subjective Subjective: Patient seen and examined this AM. No acute events overnight. Patient denies complaints. Objective - Vital Signs/Intake and Output Vital Signs (last 24 hours): Temp Pulse Resp BP Pulse Ox 97.6 F 87 20 116/73 97 01/24/18 07:47 01/24/18 07:47 01/24/18 07:47 01/24/18 07:47 01/24/18 07:47 Intake and Output: 01/24/18 01/24/18 06:59 18:59 Intake Total 120 Balance 120 - Medications Medications: Current Medications Amlodipine Besylate (Norvasc) 10 mg PO DAILY [facility] Last Admin: 01/23/18 09:31 Dose: 10 mg Aspirin (Ecotrin) 81 mg PO DAILY [facility] Last Admin: 01/23/18 09:31 Dose: 81 mg Atorvastatin Calcium (Lipitor) 20 mg PO DIN [facility] Last Admin: 01/23/18 16:33 Dose: 20 mg Citalopram Hydrobromide (Celexa) 10 mg PO DAILY [facility] Last Admin: 01/23/18 09:31 Dose: 10 mg Clotrimazole (Lotrimin Af 1%) 0 ml TOP BID [facility] Last Admin: 01/23/18 17:31 Dose: 1 applic Enoxaparin Sodium (Lovenox) 40 mg SC DAILY [facility] PRN Reason: Protocol Last Admin: 01/23/18 09:30 Dose: 40 mg Folic Acid (Folic Acid) 1 mg PO DAILY [facility] Last Admin: 01/23/18 09:31 Dose: 1 mg Insulin Detemir (Levemir) 12 unit SC HS [facility] Last Admin: 01/23/18 21:46 Dose: 12 unit Insulin Human Lispro (Humalog Low) 0 units SC ACHS [facility] PRN Reason: Protocol Last Admin: 01/24/18 07:57 Dose: Not Given Insulin Human Regular (Humulin R) 3 units SC AC [facility] Last Admin: 01/24/18 08:25 Dose: 3 units Lisinopril (Zestril) 10 mg PO DAILY [facility] Last Admin: 01/23/18 09:31 Dose: 10 mg Multivitamins/Minerals (Therapeutic-M Tab) 1 tab PO 0800 [facility] Last Admin: 01/24/18 08:25 Dose: 1 tab Pantoprazole Sodium (Protonix Ec Tab) 40 mg PO 0600 [facility] Last Admin: 01/24/18 05:21 Dose: 40 mg Quetiapine Fumarate (Seroquel) 12.5 mg PO HS PRN; Protocol PRN Reason: Agitation Last Admin: 01/21/18 21:56 Dose: 12.5 mg Thiamine HCl (Vitamin B1 Tab) 100 mg PO DAILY [facility] Last Admin: 01/23/18 09:33 Dose: 100 mg Zinc Sulfate (Zinc Sulfate 220 Mg Cap) 220 mg PO DAILY [facility] Last Admin: 01/23/18 09:31 Dose: 220 mg - Labs Labs: 01/23/18 08:00 01/18/18 06:19 PT 12.5 SECONDS (9.4-12.5) 12/09/17 10:00 INR 1.09 (0.93-1.08) H 12/09/17 10:00 APTT 28.3 Seconds (25.1-36.5) 11/30/17 05:30 - Constitutional Appears: Non-toxic, No Acute Distress - Head Exam Head Exam: ATRAUMATIC, NORMAL INSPECTION, NORMOCEPHALIC - Eye Exam Eye Exam: EOMI, PERRL - ENT Exam ENT Exam: Mucous Membranes Moist - Respiratory Exam Respiratory Exam: Clear to Ausculation Bilateral, NORMAL BREATHING PATTERN. absent: Rhonchi, Wheezes - Cardiovascular Exam Cardiovascular Exam: REGULAR RHYTHM, +S1, +S2 - GI/Abdominal Exam GI & Abdominal Exam: Soft, Normal Bowel Sounds. absent: Tenderness - Extremities Exam Extremities Exam: absent: Calf Tenderness - Neurological Exam Neurological Exam: Alert, Awake Additional comments: Patient able to move all four extremities past midline, able to follow simple commands, motor and sensory grossly intact - Psychiatric Exam Psychiatric exam: Normal Affect, Normal Mood - Skin Skin Exam: Dry, Intact Assessment and Plan - Assessment and Plan (Free Text) Assessment: 57 year old male with unknown past medical history who was admitted for AMS, right hip cellulitis, multifocal pneumonia, influenza A, strep viridians bacteremia with findings of stroke on MRI - acute vs. 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 Patient was treated for bacteremia with IV abx. Patient currently is awaiting further medical evaluation in the form of TAHIR and colonoscopy. Patient is refusing testing at this time. Patient status is pending state guardianship for further placement and medical evaluation. Plan: AMS - Delirium precautions - Patient showing clinical improvement upon review of chart notes - Likely secondary to depression vs. previous brain injury in form of metabolic encephalopathy vs residual stroke deficits Bacteremia with S. viridans/mitis and Coag negative Staph Bactermia - Bld clx negative since 12/04/17 with completeion of 6 week course of antibiotics - Monitor WBC, ESR, CRP weekly - Clinically stable Colonic Neoplasm - Gi consulted and following patient - Flex sig/colonoscopy pending consent and guardianship resolution Ischemic Stroke - ASA 81 mg - Lipitor 20mg DM 2 - ACHS - Levemir 12 units HS - Continue ISS - Carb consistent diet HTN - Lisinopril 10mg Daily - Norvasc 10mg Daily Sacral Decubitus - Resolved - OOB to chair ordered, patient refusing - Z gaurd PRN - PT TID/weekly Affective disorder - Celexa 10mg PO Daily - Seroquel HS - Pysch consulted GI/DVT ppx - Protonix - SCDs Dispo: Patient lacks decision making capacity and is unable to comprehend his diagnosis, medical treatment, potential benefit and risk associated with and without treatment. Awaiting process for state to gain guardianship for further dispo planning Case and plan discussed with attending Yasmin Bowie PGY-1 <Sixto Galo - Last Filed: 01/24/18 15:28> Objective - Vital Signs/Intake and Output Vital Signs (last 24 hours): Temp Pulse Resp BP Pulse Ox 97.6 F 87 20 116/73 97 01/24/18 07:47 01/24/18 09:20 01/24/18 07:47 01/24/18 09:20 01/24/18 07:47 Intake and Output: 01/24/18 01/24/18 06:59 18:59 Intake Total 120 Balance 120 - Medications Medications: Current Medications Amlodipine Besylate (Norvasc) 10 mg PO DAILY [facility] Last Admin: 01/24/18 09:20 Dose: 10 mg Aspirin (Ecotrin) 81 mg PO DAILY [facility] Last Admin: 01/24/18 09:19 Dose: 81 mg Atorvastatin Calcium (Lipitor) 20 mg PO DIN [facility] Last Admin: 01/23/18 16:33 Dose: 20 mg Citalopram Hydrobromide (Celexa) 10 mg PO DAILY [facility] Last Admin: 01/24/18 09:19 Dose: 10 mg Clotrimazole (Lotrimin Af 1%) 0 ml TOP BID [facility] Last Admin: 01/24/18 09:21 Dose: 1 applic Enoxaparin Sodium (Lovenox) 40 mg SC DAILY [facility] PRN Reason: Protocol Last Admin: 01/24/18 09:19 Dose: 40 mg Folic Acid (Folic Acid) 1 mg PO DAILY [facility] Last Admin: 01/24/18 09:19 Dose: 1 mg Insulin Detemir (Levemir) 12 unit SC HS [facility] Last Admin: 01/23/18 21:46 Dose: 12 unit Insulin Human Lispro (Humalog Low) 0 units SC ACHS [facility] PRN Reason: Protocol Last Admin: 01/24/18 12:24 Dose: 1 units Insulin Human Regular (Humulin R) 3 units SC AC [facility] Last Admin: 01/24/18 12:25 Dose: 3 units Lisinopril (Zestril) 10 mg PO DAILY [facility] Last Admin: 01/24/18 09:20 Dose: 10 mg Multivitamins/Minerals (Therapeutic-M Tab) 1 tab PO 0800 [facility] Last Admin: 01/24/18 08:25 Dose: 1 tab Pantoprazole Sodium (Protonix Ec Tab) 40 mg PO 0600 [facility] Last Admin: 01/24/18 05:21 Dose: 40 mg Quetiapine Fumarate (Seroquel) 12.5 mg PO HS PRN; Protocol PRN Reason: Agitation Last Admin: 01/21/18 21:56 Dose: 12.5 mg Thiamine HCl (Vitamin B1 Tab) 100 mg PO DAILY [facility] Last Admin: 01/24/18 09:19 Dose: 100 mg Zinc Sulfate (Zinc Sulfate 220 Mg Cap) 220 mg PO DAILY [facility] Last Admin: 01/24/18 09:19 Dose: 220 mg - Labs Labs: 01/23/18 08:00 01/18/18 06:19 PT 12.5 SECONDS (9.4-12.5) 12/09/17 10:00 INR 1.09 (0.93-1.08) H 12/09/17 10:00 APTT 28.3 Seconds (25.1-36.5) 11/30/17 05:30 Attending/Attestation - Attestation I have personally seen and examined this patient.: Yes I have fully participated in the care of the patient.: Yes I have reviewed all pertinent clinical information, including history, physical exam and plan: Yes Notes (Text): 01/24/18 15:26 57 year old male with no know past medical history who was admitted with altered mental status. He was treated for right hip cellulitis, pneumonia and flu earlier during this admission. He was also found to have strep viridans bacteremia for which he has completed course of iv antibiotics. Echocardiogram could not rule out vegetations however family is not available to give consent for TAHIR. CT abd/pelvis showed colonic mass and liver lesions. At this time consent cannot be obtained for sigmoidoscopy or biopsy. He was also found to have acute vs subacute infarct. He is on aspirin and statin. PT recommends JOSIAH. He is on levemir and insulin ss for diabetes. He is on norvasc and lisinopril for hypertension. Case management and social media executive are working on guardianship and disposition. Sixto Galo MD Hospitalist.
--- NOTE | 2018-01-24 11:15 | CP.PCM.PN ---
Subjective - Date & Time of Evaluation Date of Evaluation: 01/24/18 Time of Evaluation: 09:05 - Subjective Subjective: Comfortable in bed, no fevers. Objective - Vital Signs/Intake and Output Vital Signs (last 24 hours): Temp Pulse Resp BP Pulse Ox 97.6 F 87 20 116/73 97 01/24/18 07:47 01/24/18 07:47 01/24/18 07:47 01/24/18 07:47 01/24/18 07:47 Intake and Output: 01/24/18 01/24/18 06:59 18:59 Intake Total 120 Balance 120 - Medications Medications: Current Medications Amlodipine Besylate (Norvasc) 10 mg PO DAILY [facility] Last Admin: 01/23/18 09:31 Dose: 10 mg Aspirin (Ecotrin) 81 mg PO DAILY [facility] Last Admin: 01/23/18 09:31 Dose: 81 mg Atorvastatin Calcium (Lipitor) 20 mg PO DIN [facility] Last Admin: 01/23/18 16:33 Dose: 20 mg Citalopram Hydrobromide (Celexa) 10 mg PO DAILY [facility] Last Admin: 01/23/18 09:31 Dose: 10 mg Clotrimazole (Lotrimin Af 1%) 0 ml TOP BID [facility] Last Admin: 01/23/18 17:31 Dose: 1 applic Enoxaparin Sodium (Lovenox) 40 mg SC DAILY [facility] PRN Reason: Protocol Last Admin: 01/23/18 09:30 Dose: 40 mg Folic Acid (Folic Acid) 1 mg PO DAILY [facility] Last Admin: 01/23/18 09:31 Dose: 1 mg Insulin Detemir (Levemir) 12 unit SC HS [facility] Last Admin: 01/23/18 21:46 Dose: 12 unit Insulin Human Lispro (Humalog Low) 0 units SC ACHS [facility] PRN Reason: Protocol Last Admin: 01/24/18 07:57 Dose: Not Given Insulin Human Regular (Humulin R) 3 units SC AC [facility] Last Admin: 01/23/18 16:32 Dose: 3 units Lisinopril (Zestril) 10 mg PO DAILY [facility] Last Admin: 01/23/18 09:31 Dose: 10 mg Multivitamins/Minerals (Therapeutic-M Tab) 1 tab PO 0800 [facility] Last Admin: 01/23/18 07:57 Dose: 1 tab Pantoprazole Sodium (Protonix Ec Tab) 40 mg PO 0600 [facility] Last Admin: 01/24/18 05:21 Dose: 40 mg Quetiapine Fumarate (Seroquel) 12.5 mg PO HS PRN; Protocol PRN Reason: Agitation Last Admin: 01/21/18 21:56 Dose: 12.5 mg Thiamine HCl (Vitamin B1 Tab) 100 mg PO DAILY [facility] Last Admin: 01/23/18 09:33 Dose: 100 mg Zinc Sulfate (Zinc Sulfate 220 Mg Cap) 220 mg PO DAILY [facility] Last Admin: 01/23/18 09:31 Dose: 220 mg - Labs Labs: 01/23/18 08:00 01/18/18 06:19 PT 12.5 SECONDS (9.4-12.5) 12/09/17 10:00 INR 1.09 (0.93-1.08) H 12/09/17 10:00 APTT 28.3 Seconds (25.1-36.5) 11/30/17 05:30 - Constitutional Appears: Chronically Ill - Head Exam Head Exam: NORMAL INSPECTION - ENT Exam ENT Exam: Mucous Membranes Moist - Neck Exam Neck Exam: absent: Meningismus - Respiratory Exam Respiratory Exam: Decreased Breath Sounds - Cardiovascular Exam Cardiovascular Exam: +S1, +S2 - GI/Abdominal Exam GI & Abdominal Exam: Soft. absent: Tenderness Assessment and Plan - Assessment and Plan (Free Text) Plan: Assessment S/P sepsis due to strep viridans and CoNS bacteremia from right gluteal and back cellulitis S/P multifocal HCAP on top of Influenza A infection S/P Sammie infection of sacral area as well peripheral vascular disease Plan he has completed 42 days of antibiotics - continue to monitor clinically off antibiotics since he is at risk for healthcare-associated infections
[2018-01-24] MEDS: Insulin Detemir 100 units/ml Vial (Levemir) SC SCH (21:40)
[2018-01-25] MEDS: Pantoprazole 40 mg EC Tab PO SCH (05:18)
[2018-01-25] MEDS: Insulin Lispro (humaLOG) LOW Coverage SC SCH ×4 (07:41→22:42)
[2018-01-25] MEDS: Insulin Regular 1 UNITS/0.01 ML ML SC SCH ×3 (07:41→18:25)
[2018-01-25] MEDS: Multivitamin With Minerals Tab PO SCH (10:53)
[2018-01-25] MEDS: Enoxaparin 40 mg Syringe SC SCH (10:54)
[2018-01-25] MEDS: Clotrimazole 1% Top Soln(10 ml) TOP SCH ×2 (10:55→18:25)
--- NOTE | 2018-01-25 11:58 | CP.PCM.PN ---
Subjective - Date & Time of Evaluation Date of Evaluation: 01/25/18 Time of Evaluation: 10:15 - Subjective Subjective: Comfortable, no diarrhea, afebrile, not in distress. Objective - Vital Signs/Intake and Output Vital Signs (last 24 hours): Temp Pulse Resp BP Pulse Ox 97.4 F L 91 H 20 124/74 97 01/25/18 07:57 01/25/18 10:54 01/25/18 07:57 01/25/18 10:54 01/25/18 07:57 - Medications Medications: Current Medications Amlodipine Besylate (Norvasc) 10 mg PO DAILY [facility] [place] Last Admin: 01/25/18 10:54 Dose: 10 mg Aspirin (Ecotrin) 81 mg PO DAILY [facility] Last Admin: 01/25/18 10:53 Dose: 81 mg Atorvastatin Calcium (Lipitor) 20 mg PO DIN [facility] Last Admin: 01/24/18 17:49 Dose: 20 mg Citalopram Hydrobromide (Celexa) 10 mg PO DAILY [facility] [place] Last Admin: 01/25/18 10:53 Dose: 10 mg Clotrimazole (Lotrimin Af 1%) 0 ml TOP BID [facility] Last Admin: 01/25/18 10:55 Dose: 1 applic Enoxaparin Sodium (Lovenox) 40 mg SC DAILY [facility] [place] PRN Reason: Protocol Last Admin: 01/25/18 10:54 Dose: 40 mg Folic Acid (Folic Acid) 1 mg PO DAILY [facility] Last Admin: 01/25/18 10:53 Dose: 1 mg Insulin Detemir (Levemir) 12 unit SC HS [facility] [place] Last Admin: 01/24/18 21:40 Dose: 12 unit Insulin Human Lispro (Humalog Low) 0 units SC ACHS [facility] [place] PRN Reason: Protocol Last Admin: 01/25/18 07:41 Dose: Not Given Insulin Human Regular (Humulin R) 3 units SC AC [facility] Last Admin: 01/25/18 07:41 Dose: Not Given Lisinopril (Zestril) 10 mg PO DAILY [facility] Last Admin: 01/25/18 10:54 Dose: 10 mg Multivitamins/Minerals (Therapeutic-M Tab) 1 tab PO 0800 [facility] Last Admin: 01/25/18 10:53 Dose: 1 tab Pantoprazole Sodium (Protonix Ec Tab) 40 mg PO 0600 [facility] [place] Last Admin: 01/25/18 05:18 Dose: 40 mg Quetiapine Fumarate (Seroquel) 12.5 mg PO HS PRN; Protocol PRN Reason: Agitation Last Admin: 01/21/18 21:56 Dose: 12.5 mg Thiamine HCl (Vitamin B1 Tab) 100 mg PO DAILY [facility] Last Admin: 01/25/18 10:53 Dose: 100 mg Zinc Sulfate (Zinc Sulfate 220 Mg Cap) 220 mg PO DAILY [facility] Last Admin: 01/25/18 10:53 Dose: 220 mg - Labs Labs: 01/23/18 08:00 01/18/18 06:19 PT 12.5 SECONDS (9.4-12.5) 12/09/17 10:00 INR 1.09 (0.93-1.08) H 12/09/17 10:00 APTT 28.3 Seconds (25.1-36.5) 11/30/17 05:30 - Constitutional Appears: Chronically Ill - Head Exam Head Exam: NORMAL INSPECTION - Neck Exam Neck Exam: absent: Meningismus - Respiratory Exam Respiratory Exam: Decreased Breath Sounds - Cardiovascular Exam Cardiovascular Exam: +S1, +S2 - GI/Abdominal Exam GI & Abdominal Exam: Soft. absent: Tenderness Assessment and Plan - Assessment and Plan (Free Text) Plan: Assessment S/P sepsis due to strep viridans and CoNS bacteremia from right gluteal and back cellulitis S/P multifocal HCAP on top of Influenza A infection S/P Sammie infection of sacral area as well peripheral vascular disease Plan completed 42 days of antibiotics - continue to follow clinically off antibiotics since he is at risk for nosocomial infections
--- NOTE | 2018-01-25 14:34 | CP.PCM.PN ---
<Rcoael oBwie - Last Filed: 01/25/18 14:28> Subjective - Date & Time of Evaluation Date of Evaluation: 01/25/18 Time of Evaluation: 14:38 - Subjective Subjective: Patient evaluated and examined at bedside this AM. Per notes patient reportedly had dark stool and abdominal discomfort over night. Patient denied abdominal pain at this time, asymptomatic for GI bleed. Patient denies chest pain, shortness of breath, abdominal discomfort, numbness, tingling, vomiting, diarrhea, constipation, chills. Objective - Vital Signs/Intake and Output Vital Signs (last 24 hours): Temp Pulse Resp BP Pulse Ox 97.4 F L 91 H 20 124/74 97 01/25/18 07:57 01/25/18 10:54 01/25/18 07:57 01/25/18 10:54 01/25/18 07:57 - Medications Medications: Current Medications Amlodipine Besylate (Norvasc) 10 mg PO DAILY [facility] Last Admin: 01/25/18 10:54 Dose: 10 mg Aspirin (Ecotrin) 81 mg PO DAILY [facility] Last Admin: 01/25/18 10:53 Dose: 81 mg Atorvastatin Calcium (Lipitor) 20 mg PO DIN [facility] Last Admin: 01/24/18 17:49 Dose: 20 mg Citalopram Hydrobromide (Celexa) 10 mg PO DAILY [facility] Last Admin: 01/25/18 10:53 Dose: 10 mg Clotrimazole (Lotrimin Af 1%) 0 ml TOP BID [facility] Last Admin: 01/25/18 10:55 Dose: 1 applic Enoxaparin Sodium (Lovenox) 40 mg SC DAILY [facility] PRN Reason: Protocol Last Admin: 01/25/18 10:54 Dose: 40 mg Folic Acid (Folic Acid) 1 mg PO DAILY [facility] Last Admin: 01/25/18 10:53 Dose: 1 mg Insulin Detemir (Levemir) 12 unit SC HS [facility] Last Admin: 01/24/18 21:40 Dose: 12 unit Insulin Human Lispro (Humalog Low) 0 units SC ACHS [facility] PRN Reason: Protocol Last Admin: 01/25/18 14:19 Dose: 1 units Insulin Human Regular (Humulin R) 3 units SC AC [facility] Last Admin: 01/25/18 14:18 Dose: 3 units Lisinopril (Zestril) 10 mg PO DAILY [facility] Last Admin: 01/25/18 10:54 Dose: 10 mg Multivitamins/Minerals (Therapeutic-M Tab) 1 tab PO 0800 [facility] Last Admin: 01/25/18 10:53 Dose: 1 tab Pantoprazole Sodium (Protonix Ec Tab) 40 mg PO 0600 [facility] Last Admin: 01/25/18 05:18 Dose: 40 mg Quetiapine Fumarate (Seroquel) 12.5 mg PO HS PRN; Protocol PRN Reason: Agitation Last Admin: 01/21/18 21:56 Dose: 12.5 mg Thiamine HCl (Vitamin B1 Tab) 100 mg PO DAILY [facility] Last Admin: 01/25/18 10:53 Dose: 100 mg Zinc Sulfate (Zinc Sulfate 220 Mg Cap) 220 mg PO DAILY [facility] Last Admin: 01/25/18 10:53 Dose: 220 mg - Labs Labs: 01/23/18 08:00 01/18/18 06:19 PT 12.5 SECONDS (9.4-12.5) 12/09/17 10:00 INR 1.09 (0.93-1.08) H 12/09/17 10:00 APTT 28.3 Seconds (25.1-36.5) 11/30/17 05:30 - Constitutional Appears: Non-toxic, No Acute Distress - Head Exam Head Exam: ATRAUMATIC, NORMAL INSPECTION, NORMOCEPHALIC - Eye Exam Eye Exam: EOMI, PERRL - ENT Exam ENT Exam: Mucous Membranes Moist - Neck Exam Neck Exam: Full ROM - Respiratory Exam Respiratory Exam: Clear to Ausculation Bilateral, NORMAL BREATHING PATTERN. absent: Rales, Rhonchi, Wheezes - Cardiovascular Exam Cardiovascular Exam: REGULAR RHYTHM, +S1, +S2 - GI/Abdominal Exam GI & Abdominal Exam: Soft, Normal Bowel Sounds. absent: Tenderness - Extremities Exam Extremities Exam: absent: Calf Tenderness, Pedal Edema - Neurological Exam Neurological Exam: Alert, Awake - Psychiatric Exam Psychiatric exam: Normal Affect - Skin Skin Exam: Normal Color, Warm Assessment and Plan - Assessment and Plan (Free Text) Assessment: 57 year old male with unknown past medical history who was admitted for AMS, right hip cellulitis, multifocal pneumonia, influenza A, strep viridians bacteremia with findings of stroke on MRI - acute vs. 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 Patient was treated for bacteremia with IV abx. Patient currently is awaiting further medical evaluation in the form of TAHIR and colonoscopy. Patient is refusing testing at this time. Family is unable to be contacted for consent. Patient status is pending state guardianship for further placement and medical evaluation. Plan: AMS - Delirium precautions - Patient showing clinical improvement upon review of chart notes - Likely secondary to depression vs. previous brain injury in form of metabolic encephalopathy vs residual stroke deficits Bacteremia with S. viridans/mitis and Coag negative Staph Bactermia - Last bld clx negative 12/04/17 with completion of 6 week course of antibiotics - Monitor WBC, ESR, CRP weekly - Clinically stable - Echocardiogram unable to rule out vegetations, family is unavailable for consent for TAHIR - Patient did complete 6 week course of antibiotics Colonic Neoplasm - CT Abd/Pelvis showing colonic mass and hepatic lesions - GI consulted and following patient - Flex sig/colonoscopy refused by patient at this time - Family unable to be contacted for consent Ischemic Stroke - ASA 81 mg - Lipitor 20mg - PT recommendations for JOSIAH DM 2 - ACHS - Levemir 12 units HS - Continue ISS - Carb consistent diet HTN - Lisinopril 10mg Daily - Norvasc 10mg Daily Sacral Decubitus - OOB to chair ordered, patient refusing - Z gaurd PRN - PT TID/weekly Affective disorder - Celexa 10mg PO Daily - Seroquel HS GI/DVT ppx - Protonix - SCDs Dispo: Patient lacks decision making capacity and is unable to comprehend his diagnosis, medical treatment, potential benefit and risk associated with and without treatment. Gaurdianship paperwork pending. Case and plan discussed with attending Yasmin Bowie PGY-1 <Sixto Galo - Last Filed: 01/25/18 15:48> Objective - Vital Signs/Intake and Output Vital Signs (last 24 hours): Temp Pulse Resp BP Pulse Ox 97.4 F L 91 H 20 124/74 97 01/25/18 07:57 01/25/18 10:54 01/25/18 07:57 01/25/18 10:54 01/25/18 07:57 - Medications Medications: Current Medications Amlodipine Besylate (Norvasc) 10 mg PO DAILY [facility] Last Admin: 01/25/18 10:54 Dose: 10 mg Aspirin (Ecotrin) 81 mg PO DAILY [facility] Last Admin: 01/25/18 10:53 Dose: 81 mg Atorvastatin Calcium (Lipitor) 20 mg PO DIN [facility] Last Admin: 01/24/18 17:49 Dose: 20 mg Citalopram Hydrobromide (Celexa) 10 mg PO DAILY [facility] Last Admin: 01/25/18 10:53 Dose: 10 mg Clotrimazole (Lotrimin Af 1%) 0 ml TOP BID [facility] Last Admin: 01/25/18 10:55 Dose: 1 applic Enoxaparin Sodium (Lovenox) 40 mg SC DAILY [facility] PRN Reason: Protocol Last Admin: 01/25/18 10:54 Dose: 40 mg Folic Acid (Folic Acid) 1 mg PO DAILY [facility] Last Admin: 01/25/18 10:53 Dose: 1 mg Insulin Detemir (Levemir) 12 unit SC HS [facility] Last Admin: 01/24/18 21:40 Dose: 12 unit Insulin Human Lispro (Humalog Low) 0 units SC ACHS [facility] PRN Reason: Protocol Last Admin: 01/25/18 14:19 Dose: 1 units Insulin Human Regular (Humulin R) 3 units SC AC [facility] Last Admin: 01/25/18 14:18 Dose: 3 units Lisinopril (Zestril) 10 mg PO DAILY [facility] Last Admin: 01/25/18 10:54 Dose: 10 mg Multivitamins/Minerals (Therapeutic-M Tab) 1 tab PO 0800 [facility] Last Admin: 01/25/18 10:53 Dose: 1 tab Pantoprazole Sodium (Protonix Ec Tab) 40 mg PO 0600 [facility] Last Admin: 01/25/18 05:18 Dose: 40 mg Quetiapine Fumarate (Seroquel) 12.5 mg PO HS PRN; Protocol PRN Reason: Agitation Last Admin: 01/21/18 21:56 Dose: 12.5 mg Thiamine HCl (Vitamin B1 Tab) 100 mg PO DAILY [facility] Last Admin: 01/25/18 10:53 Dose: 100 mg Zinc Sulfate (Zinc Sulfate 220 Mg Cap) 220 mg PO DAILY [facility] Last Admin: 01/25/18 10:53 Dose: 220 mg - Labs Labs: 01/23/18 08:00 01/18/18 06:19 PT 12.5 SECONDS (9.4-12.5) 12/09/17 10:00 INR 1.09 (0.93-1.08) H 12/09/17 10:00 APTT 28.3 Seconds (25.1-36.5) 11/30/17 05:30 Attending/Attestation - Attestation I have personally seen and examined this patient.: Yes I have fully participated in the care of the patient.: Yes I have reviewed all pertinent clinical information, including history, physical exam and plan: Yes Notes (Text): 01/25/18 15:47 57 year old male with no know past medical history who was admitted with altered mental status. He was initially treated for right hip cellulitis, pneumonia and flu earlier earlier during the admission. He was also found to have strep viridans bacteremia for which he has completed course of iv antibiotics. Echocardiogram could not rule out vegetations however family is not available to give consent for TAHIR. CT abd/pelvis showed colonic mass and liver lesions. At this time consent cannot be obtained for sigmoidoscopy or biopsy. He was also found to have acute vs subacute infarct. He is on aspirin and statin. PT has recommended JOSIAH. He is on levemir and insulin ss for diabetes and norvasc and lisinopril for hypertension. Case management and bilingual social worker are working on guardianship and disposition. Sixto Galo MD Hospitalist.
[2018-01-25] MEDS: Insulin Detemir 100 units/ml Vial (Levemir) SC SCH (22:45)
[2018-01-26] MEDS: Pantoprazole 40 mg EC Tab PO SCH (05:45)
[2018-01-26 06:21] LABS: HEMOGLOBIN 10.4 g/dL (14.0-18.0); MEAN CELL VOLUME 87.3 fl (80.0-105.0); MEAN CORPUSCULAR HEMOGLOBIN 28.7 pg (25.0-35.0); MEAN CORPUSCULAR HGB CONC 32.9 g/dl (31.0-37.0); MEAN PLATELET VOLUME 9.1 fl (7.0-11.0); RBC 3.62 10^6/uL (3.5-6.1); RED CELL DISTRIBUTION WIDTH 15.2 % (11.5-14.5); WHITE BLOOD COUNT 8.6 10^3/ul (4.5-11.0)
[2018-01-26 07:15] LABS: ALB/GLOB RATIO 1.2 (1.1-1.8); ALBUMIN 3.4 g/dL (3.0-4.8); ALT/SGPT 29 U/L (7-56); AST/SGOT 31 U/L (17-59); BLOOD UREA NITROGEN 14 mg/dL (7-21); CALCIUM 9.6 mg/dL (8.4-10.5); GFR NON-AFRICAN AMERICAN > 60
[2018-01-26] MEDS: Insulin Regular 1 UNITS/0.01 ML ML SC SCH ×3 (07:59→17:04)
[2018-01-26] MEDS: Insulin Lispro (humaLOG) LOW Coverage SC SCH ×4 (07:59→22:15)
--- NOTE | 2018-01-26 08:42 | CP.PCM.PN ---
<Rocael Bowie - Last Filed: 01/26/18 13:58> Subjective - Date & Time of Evaluation Date of Evaluation: 01/26/18 Time of Evaluation: 08:39 - Subjective Subjective: Patient seen and evaluated at bedside. No acute events overnight. No clinical change. Objective - Vital Signs/Intake and Output Vital Signs (last 24 hours): Temp Pulse Resp BP Pulse Ox 98.1 F 51 L 19 113/72 93 L 01/26/18 06:00 01/26/18 06:00 01/26/18 06:00 01/26/18 06:00 01/26/18 06:00 Intake and Output: 01/26/18 01/26/18 06:59 18:59 Intake Total 660 Balance 660 - Medications Medications: Current Medications Amlodipine Besylate (Norvasc) 10 mg PO DAILY [facility] Last Admin: 01/25/18 10:54 Dose: 10 mg Aspirin (Ecotrin) 81 mg PO DAILY [facility] Last Admin: 01/25/18 10:53 Dose: 81 mg Atorvastatin Calcium (Lipitor) 20 mg PO DIN [facility] Last Admin: 01/25/18 18:25 Dose: 20 mg Citalopram Hydrobromide (Celexa) 10 mg PO DAILY [facility] Last Admin: 01/25/18 10:53 Dose: 10 mg Clotrimazole (Lotrimin Af 1%) 0 ml TOP BID [facility] Last Admin: 01/25/18 18:25 Dose: 1 applic Enoxaparin Sodium (Lovenox) 40 mg SC DAILY [facility] PRN Reason: Protocol Last Admin: 01/25/18 10:54 Dose: 40 mg Folic Acid (Folic Acid) 1 mg PO DAILY [facility] Last Admin: 01/25/18 10:53 Dose: 1 mg Insulin Detemir (Levemir) 12 unit SC HS [facility] Last Admin: 01/25/18 22:45 Dose: 12 unit Insulin Human Lispro (Humalog Low) 0 units SC ACHS [facility] PRN Reason: Protocol Last Admin: 01/26/18 07:59 Dose: Not Given Insulin Human Regular (Humulin R) 3 units SC AC [facility] Last Admin: 01/26/18 07:59 Dose: Not Given Lisinopril (Zestril) 10 mg PO DAILY [facility] Last Admin: 01/25/18 10:54 Dose: 10 mg Multivitamins/Minerals (Therapeutic-M Tab) 1 tab PO 0800 [facility] Last Admin: 01/25/18 10:53 Dose: 1 tab Pantoprazole Sodium (Protonix Ec Tab) 40 mg PO 0600 [facility] Last Admin: 01/26/18 05:45 Dose: 40 mg Quetiapine Fumarate (Seroquel) 12.5 mg PO HS PRN; Protocol PRN Reason: Agitation Last Admin: 01/21/18 21:56 Dose: 12.5 mg Thiamine HCl (Vitamin B1 Tab) 100 mg PO DAILY [facility] Last Admin: 01/25/18 10:53 Dose: 100 mg Zinc Sulfate (Zinc Sulfate 220 Mg Cap) 220 mg PO DAILY [facility] Last Admin: 01/25/18 10:53 Dose: 220 mg - Labs Labs: 01/26/18 06:00 01/26/18 06:00 PT 12.5 SECONDS (9.4-12.5) 12/09/17 10:00 INR 1.09 (0.93-1.08) H 12/09/17 10:00 APTT 28.3 Seconds (25.1-36.5) 11/30/17 05:30 - Constitutional Appears: Non-toxic, No Acute Distress - Head Exam Head Exam: ATRAUMATIC, NORMAL INSPECTION, NORMOCEPHALIC - Eye Exam Eye Exam: EOMI, PERRL - ENT Exam ENT Exam: Mucous Membranes Moist - Neck Exam Neck Exam: Full ROM - Respiratory Exam Respiratory Exam: Clear to Ausculation Bilateral, NORMAL BREATHING PATTERN. absent: Rhonchi, Wheezes - Cardiovascular Exam Cardiovascular Exam: REGULAR RHYTHM, +S1, +S2 - GI/Abdominal Exam GI & Abdominal Exam: Soft, Normal Bowel Sounds. absent: Guarding, Tenderness - Extremities Exam Extremities Exam: absent: Calf Tenderness, Pedal Edema - Neurological Exam Neurological Exam: Alert, Awake Additional comments: able to follow simple commands, moves all four extremities past midline - Psychiatric Exam Psychiatric exam: Normal Affect - Skin Skin Exam: Dry, Intact, Normal Color, Warm Assessment and Plan - Assessment and Plan (Free Text) Assessment: 57 year old male with unknown past medical history who was admitted for AMS, right hip cellulitis, multifocal pneumonia, influenza A, strep viridians bacteremia with findings of stroke on MRI - acute vs. 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 Patient was treated for bacteremia with IV abx. Patient currently is awaiting further medical evaluation in the form of TAHIR and colonoscopy. Patient is refusing testing at this time. Family is unable to be contacted for consent. Patient status is pending state guardianship for further placement and medical evaluation. Plan: AMS - Delirium precautions - Patient showing clinical improvement upon review of chart notes - Likely secondary to depression vs. previous brain injury in form of metabolic encephalopathy vs residual stroke deficits Bacteremia with S. viridans/mitis and Coag negative Staph Bactermia - Last bld clx negative 12/04/17 with completion of 6 week course of antibiotics - Monitor WBC, ESR, CRP weekly - Clinically stable - Echocardiogram unable to rule out vegetations, family is unavailable for consent for TAHIR - Patient did complete 6 week course of antibiotics Colonic Neoplasm - CT Abd/Pelvis showing colonic mass and hepatic lesions - GI consulted and following patient - Flex sig/colonoscopy refused by patient at this time - Family unable to be contacted for consent Ischemic Stroke - ASA 81 mg - Lipitor 20mg - PT recommendations for JOSIAH DM 2 - ACHS - Levemir 12 units HS - Continue ISS - Carb consistent diet HTN - Lisinopril 10mg Daily - Norvasc 10mg Daily Sacral Decubitus - OOB to chair ordered, patient refusing - Z gaurd PRN - PT TID/weekly Affective disorder - Celexa 10mg PO Daily - Seroquel HS GI/DVT ppx - Protonix - SCDs Dispo: Patient lacks decision making capacity and is unable to comprehend his diagnosis, medical treatment, potential benefit and risk associated with and without treatment. [facility]. Case and plan discussed with attending Yasmin Bowie PGY-1 <Sixto Galo - Last Filed: 01/26/18 14:11> Objective - Vital Signs/Intake and Output Vital Signs (last 24 hours): Temp Pulse Resp BP Pulse Ox 98.1 F 51 L 19 145/72 93 L 01/26/18 06:00 01/26/18 06:00 01/26/18 06:00 01/26/18 09:09 01/26/18 06:00 Intake and Output: 01/26/18 01/26/18 06:59 18:59 Intake Total 660 Balance 660 - Medications Medications: Current Medications Amlodipine Besylate (Norvasc) 10 mg PO DAILY [facility] Last Admin: 01/26/18 09:09 Dose: 10 mg Aspirin (Ecotrin) 81 mg PO DAILY [facility] Last Admin: 01/26/18 09:10 Dose: 81 mg Atorvastatin Calcium (Lipitor) 20 mg PO DIN [facility] Last Admin: 01/25/18 18:25 Dose: 20 mg Citalopram Hydrobromide (Celexa) 10 mg PO DAILY [facility] Last Admin: 01/26/18 09:10 Dose: 10 mg Clotrimazole (Lotrimin Af 1%) 0 ml TOP BID [facility] Last Admin: 01/26/18 09:12 Dose: 1 applic Enoxaparin Sodium (Lovenox) 40 mg SC DAILY [facility] PRN Reason: Protocol Last Admin: 01/26/18 09:09 Dose: 40 mg Folic Acid (Folic Acid) 1 mg PO DAILY [facility] Last Admin: 01/26/18 09:09 Dose: 1 mg Insulin Detemir (Levemir) 12 unit SC HS [facility] Last Admin: 01/25/18 22:45 Dose: 12 unit Insulin Human Lispro (Humalog Low) 0 units SC [facility] PRN Reason: Protocol Last Admin: 01/26/18 12:23 Dose: 3 units Insulin Human Regular (Humulin R) 3 units SC AC [facility] Last Admin: 01/26/18 12:24 Dose: 3 units Lisinopril (Zestril) 10 mg PO DAILY [facility] Last Admin: 01/26/18 09:09 Dose: 10 mg Multivitamins/Minerals (Therapeutic-M Tab) 1 tab PO 0800 [facility] Last Admin: 01/26/18 09:10 Dose: 1 tab Pantoprazole Sodium (Protonix Ec Tab) 40 mg PO 0600 [facility] Last Admin: 01/26/18 05:45 Dose: 40 mg Quetiapine Fumarate (Seroquel) 12.5 mg PO HS PRN; Protocol PRN Reason: Agitation Last Admin: 01/21/18 21:56 Dose: 12.5 mg Thiamine HCl (Vitamin B1 Tab) 100 mg PO DAILY [facility] Last Admin: 01/26/18 09:09 Dose: 100 mg Zinc Sulfate (Zinc Sulfate 220 Mg Cap) 220 mg PO DAILY [facility] Last Admin: 01/26/18 09:10 Dose: 220 mg - Labs Labs: 01/26/18 06:00 01/26/18 06:00 PT 12.5 SECONDS (9.4-12.5) 12/09/17 10:00 INR 1.09 (0.93-1.08) H 12/09/17 10:00 APTT 28.3 Seconds (25.1-36.5) 11/30/17 05:30 Attending/Attestation - Attestation I have personally seen and examined this patient.: Yes I have fully participated in the care of the patient.: Yes I have reviewed all pertinent clinical information, including history, physical exam and plan: Yes Notes (Text): 01/26/18 14:11 57 year old male with no know past medical history who was admitted with altered mental status. He was initially treated for right hip cellulitis, pneumonia and flu earlier earlier during the admission. He was also found to have strep viridans bacteremia for which he has completed course of iv antibiotics. Echocardiogram could not rule out vegetations however family is not available to give consent for TAHIR. CT abd/pelvis showed colonic mass and liver lesions. At this time consent cannot be obtained for sigmoidoscopy or biopsy. He was also found to have acute vs subacute infarct. He is on aspirin and statin. PT has recommended JOSIAH. Continue with levemir and insulin ss for diabetes. Continue with norvasc and lisinopril for hypertension. Case management and social services analyst are working on guardianship and disposition. Sixto Galo MD Hospitalist.
[2018-01-26] MEDS: Enoxaparin 40 mg Syringe SC SCH (09:09)
[2018-01-26] MEDS: Multivitamin With Minerals Tab PO SCH (09:10)
[2018-01-26] MEDS: Clotrimazole 1% Top Soln(10 ml) TOP SCH ×2 (09:12→17:24)
--- NOTE | 2018-01-26 12:02 | CP.PCM.PN ---
Subjective - Date & Time of Evaluation Date of Evaluation: 01/26/18 Time of Evaluation: 09:15 - Subjective Subjective: Comfortable, no fevers, no diarrhea. Objective - Vital Signs/Intake and Output Vital Signs (last 24 hours): Temp Pulse Resp BP Pulse Ox 98.5 F 89 20 136/71 98 01/25/18 16:00 01/25/18 16:00 01/25/18 16:00 01/25/18 16:00 01/25/18 16:00 Intake and Output: 01/25/18 01/26/18 18:59 06:59 Intake Total 540 Balance 540 - Medications Medications: Current Medications Amlodipine Besylate (Norvasc) 10 mg PO DAILY [facility] Last Admin: 01/25/18 10:54 Dose: 10 mg Aspirin (Ecotrin) 81 mg PO DAILY [facility] Last Admin: 01/25/18 10:53 Dose: 81 mg Atorvastatin Calcium (Lipitor) 20 mg PO DIN [facility] Last Admin: 01/25/18 18:25 Dose: 20 mg Citalopram Hydrobromide (Celexa) 10 mg PO DAILY [facility] Last Admin: 01/25/18 10:53 Dose: 10 mg Clotrimazole (Lotrimin Af 1%) 0 ml TOP BID [facility] Last Admin: 01/25/18 18:25 Dose: 1 applic Enoxaparin Sodium (Lovenox) 40 mg SC DAILY [facility] PRN Reason: Protocol Last Admin: 01/25/18 10:54 Dose: 40 mg Folic Acid (Folic Acid) 1 mg PO DAILY [facility] Last Admin: 01/25/18 10:53 Dose: 1 mg Insulin Detemir (Levemir) 12 unit SC HS [facility] Last Admin: 01/25/18 22:45 Dose: 12 unit Insulin Human Lispro (Humalog Low) 0 units SC ACHS [facility] PRN Reason: Protocol Last Admin: 01/25/18 22:42 Dose: Not Given Insulin Human Regular (Humulin R) 3 units SC AC [facility] Last Admin: 01/25/18 18:25 Dose: 3 units Lisinopril (Zestril) 10 mg PO DAILY [facility] Last Admin: 01/25/18 10:54 Dose: 10 mg Multivitamins/Minerals (Therapeutic-M Tab) 1 tab PO 0800 [facility] Last Admin: 01/25/18 10:53 Dose: 1 tab Pantoprazole Sodium (Protonix Ec Tab) 40 mg PO 0600 [facility] Last Admin: 01/26/18 05:45 Dose: 40 mg Quetiapine Fumarate (Seroquel) 12.5 mg PO HS PRN; Protocol PRN Reason: Agitation Last Admin: 01/21/18 21:56 Dose: 12.5 mg Thiamine HCl (Vitamin B1 Tab) 100 mg PO DAILY [facility] Last Admin: 01/25/18 10:53 Dose: 100 mg Zinc Sulfate (Zinc Sulfate 220 Mg Cap) 220 mg PO DAILY [facility] Last Admin: 01/25/18 10:53 Dose: 220 mg - Labs Labs: 01/23/18 08:00 01/18/18 06:19 PT 12.5 SECONDS (9.4-12.5) 12/09/17 10:00 INR 1.09 (0.93-1.08) H 12/09/17 10:00 APTT 28.3 Seconds (25.1-36.5) 11/30/17 05:30 - Constitutional Appears: Non-toxic, Chronically Ill - Head Exam Head Exam: NORMAL INSPECTION - Respiratory Exam Respiratory Exam: Decreased Breath Sounds - Cardiovascular Exam Cardiovascular Exam: +S1, +S2 - GI/Abdominal Exam GI & Abdominal Exam: Soft. absent: Tenderness Assessment and Plan - Assessment and Plan (Free Text) Plan: Assessment S/P sepsis due to strep viridans and CoNS bacteremia from right gluteal and back cellulitis S/P multifocal HCAP on top of Influenza A infection S/P Sammie infection of sacral area as well peripheral vascular disease Plan completed 42 days of antibiotics - continue to follow clinically off antibiotics since he is at risk for hospital-acquired infections
[2018-01-26] MEDS: Insulin Detemir 100 units/ml Vial (Levemir) SC SCH (22:15)
[2018-01-27] MEDS: Pantoprazole 40 mg EC Tab PO SCH (05:35)
[2018-01-27] MEDS: Insulin Lispro (humaLOG) LOW Coverage SC SCH ×4 (07:41→21:50)
[2018-01-27] MEDS: Insulin Regular 1 UNITS/0.01 ML ML SC SCH ×3 (07:51→17:02)
[2018-01-27] MEDS: Clotrimazole 1% Top Soln(10 ml) TOP SCH ×2 (09:46→17:02)
[2018-01-27] MEDS: Enoxaparin 40 mg Syringe SC SCH (09:47)
[2018-01-27] MEDS: Multivitamin With Minerals Tab PO SCH (09:49)
--- NOTE | 2018-01-27 10:55 | CP.PCM.PN ---
Subjective - Date & Time of Evaluation Date of Evaluation: 01/27/18 Time of Evaluation: 09:40 - Subjective Subjective: Comfortable, afebrile. Objective - Vital Signs/Intake and Output Vital Signs (last 24 hours): Temp Pulse Resp BP Pulse Ox 97.6 F 86 20 112/73 94 L 01/26/18 16:00 01/26/18 16:00 01/26/18 16:00 01/26/18 16:00 01/26/18 16:00 Intake and Output: 01/26/18 01/27/18 18:59 06:59 Intake Total 720 Balance 720 - Medications Medications: Current Medications Amlodipine Besylate (Norvasc) 10 mg PO DAILY [facility] Last Admin: 01/26/18 09:09 Dose: 10 mg Aspirin (Ecotrin) 81 mg PO DAILY [facility] Last Admin: 01/26/18 09:10 Dose: 81 mg Atorvastatin Calcium (Lipitor) 20 mg PO DIN [facility] Last Admin: 01/26/18 17:26 Dose: 20 mg Citalopram Hydrobromide (Celexa) 10 mg PO DAILY [facility] Last Admin: 01/26/18 09:10 Dose: 10 mg Clotrimazole (Lotrimin Af 1%) 0 ml TOP BID [facility] Last Admin: 01/26/18 17:24 Dose: 1 applic Enoxaparin Sodium (Lovenox) 40 mg SC DAILY [facility] PRN Reason: Protocol Last Admin: 01/26/18 09:09 Dose: 40 mg Folic Acid (Folic Acid) 1 mg PO DAILY [facility] Last Admin: 01/26/18 09:09 Dose: 1 mg Insulin Detemir (Levemir) 12 unit SC HS [facility] Last Admin: 01/26/18 22:15 Dose: 12 unit Insulin Human Lispro (Humalog Low) 0 units SC ACHS [facility] PRN Reason: Protocol Last Admin: 01/26/18 22:15 Dose: Not Given Insulin Human Regular (Humulin R) 3 units SC AC [facility] Last Admin: 01/26/18 17:04 Dose: Not Given Lisinopril (Zestril) 10 mg PO DAILY [facility] Last Admin: 01/26/18 09:09 Dose: 10 mg Multivitamins/Minerals (Therapeutic-M Tab) 1 tab PO 0800 [facility] Last Admin: 01/26/18 09:10 Dose: 1 tab Pantoprazole Sodium (Protonix Ec Tab) 40 mg PO 0600 [facility] Last Admin: 01/27/18 05:35 Dose: 40 mg Quetiapine Fumarate (Seroquel) 12.5 mg PO HS PRN; Protocol PRN Reason: Agitation Last Admin: 01/27/18 00:11 Dose: 12.5 mg Thiamine HCl (Vitamin B1 Tab) 100 mg PO DAILY [facility] Last Admin: 01/26/18 09:09 Dose: 100 mg Zinc Sulfate (Zinc Sulfate 220 Mg Cap) 220 mg PO DAILY [facility] Last Admin: 01/26/18 09:10 Dose: 220 mg - Labs Labs: 01/26/18 06:00 01/26/18 06:00 PT 12.5 SECONDS (9.4-12.5) 12/09/17 10:00 INR 1.09 (0.93-1.08) H 12/09/17 10:00 APTT 28.3 Seconds (25.1-36.5) 11/30/17 05:30 - Constitutional Appears: Non-toxic, Chronically Ill - Head Exam Head Exam: NORMAL INSPECTION - Respiratory Exam Respiratory Exam: Decreased Breath Sounds - Cardiovascular Exam Cardiovascular Exam: +S1, +S2 - GI/Abdominal Exam GI & Abdominal Exam: Soft. absent: Tenderness Assessment and Plan - Assessment and Plan (Free Text) Plan: Assessment S/P sepsis due to strep viridans and CoNS bacteremia from right gluteal and back cellulitis S/P multifocal HCAP on top of Influenza A infection S/P Sammie infection of sacral area as well peripheral vascular disease Plan completed 42 days of antibiotics - continue to follow clinically off antibiotics since he is at risk for healthcare-associated infections
--- NOTE | 2018-01-27 14:03 | CP.PCM.PN ---
<Rocael Bowie - Last Filed: 01/27/18 13:59> Subjective - Date & Time of Evaluation Date of Evaluation: 01/27/18 Time of Evaluation: 07:45 - Subjective Subjective: Patient seen and evaluated at bedside this AM. Patient has no complaints. No acute events overnight. Patient indicating no questions or concerns at this time. Clinically unchanged. Objective - Vital Signs/Intake and Output Vital Signs (last 24 hours): Temp Pulse Resp BP Pulse Ox 97.6 F 90 20 132/72 97 01/27/18 08:11 01/27/18 08:11 01/27/18 08:11 01/27/18 09:47 01/27/18 08:11 Intake and Output: 01/27/18 01/27/18 06:59 18:59 Intake Total 720 Balance 720 - Medications Medications: Current Medications Amlodipine Besylate (Norvasc) 10 mg PO DAILY [facility] Last Admin: 01/27/18 09:47 Dose: 10 mg Aspirin (Ecotrin) 81 mg PO DAILY [facility] Last Admin: 01/27/18 09:47 Dose: 81 mg Atorvastatin Calcium (Lipitor) 20 mg PO DIN [facility] Last Admin: 01/26/18 17:26 Dose: 20 mg Citalopram Hydrobromide (Celexa) 10 mg PO DAILY [facility] Last Admin: 01/27/18 09:47 Dose: 10 mg Clotrimazole (Lotrimin Af 1%) 0 ml TOP BID [facility] Last Admin: 01/27/18 09:46 Dose: 1 applic Enoxaparin Sodium (Lovenox) 40 mg SC DAILY [facility] PRN Reason: Protocol Last Admin: 01/27/18 09:47 Dose: 40 mg Folic Acid (Folic Acid) 1 mg PO DAILY [facility] Last Admin: 01/27/18 09:47 Dose: 1 mg Insulin Detemir (Levemir) 12 unit SC HS [facility] Last Admin: 01/26/18 22:15 Dose: 12 unit Insulin Human Lispro (Humalog Low) 0 units SC ACHS [facility] PRN Reason: Protocol Last Admin: 01/27/18 12:35 Dose: 2 units Insulin Human Regular (Humulin R) 3 units SC AC [facility] Last Admin: 01/27/18 12:36 Dose: 3 units Lisinopril (Zestril) 10 mg PO DAILY [facility] Last Admin: 01/27/18 09:47 Dose: 10 mg Multivitamins/Minerals (Therapeutic-M Tab) 1 tab PO 0800 [facility] Last Admin: 01/27/18 09:49 Dose: 1 tab Pantoprazole Sodium (Protonix Ec Tab) 40 mg PO 0600 [facility] Last Admin: 01/27/18 05:35 Dose: 40 mg Quetiapine Fumarate (Seroquel) 12.5 mg PO HS PRN; Protocol PRN Reason: Agitation Last Admin: 01/27/18 00:11 Dose: 12.5 mg Thiamine HCl (Vitamin B1 Tab) 100 mg PO DAILY [facility] Last Admin: 01/27/18 09:47 Dose: 100 mg Zinc Sulfate (Zinc Sulfate 220 Mg Cap) 220 mg PO DAILY [facility] Last Admin: 01/27/18 09:47 Dose: 220 mg - Labs Labs: 01/26/18 06:00 01/26/18 06:00 PT 12.5 SECONDS (9.4-12.5) 12/09/17 10:00 INR 1.09 (0.93-1.08) H 12/09/17 10:00 APTT 28.3 Seconds (25.1-36.5) 11/30/17 05:30 - Head Exam Head Exam: ATRAUMATIC, NORMAL INSPECTION, NORMOCEPHALIC - Eye Exam Eye Exam: EOMI - ENT Exam ENT Exam: Mucous Membranes Moist - Respiratory Exam Respiratory Exam: Clear to Ausculation Bilateral, NORMAL BREATHING PATTERN. absent: Rhonchi, Wheezes - Cardiovascular Exam Cardiovascular Exam: REGULAR RHYTHM, +S2 - GI/Abdominal Exam GI & Abdominal Exam: Soft, Normal Bowel Sounds - Neurological Exam Neurological Exam: Alert, Awake - Psychiatric Exam Psychiatric exam: Normal Affect - Skin Skin Exam: Dry, Intact, Warm Assessment and Plan - Assessment and Plan (Free Text) Assessment: 57 year old male with unknown past medical history who was admitted for AMS, right hip cellulitis, multifocal pneumonia, influenza A, strep viridians bacteremia with findings of stroke on MRI - acute vs. 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 Patient was treated for bacteremia with IV abx. Patient currently is awaiting further medical evaluation in the form of TAHIR and colonoscopy. Patient is refusing testing at this time. Family is unable to be contacted for consent. Patient status is pending state guardianship for further placement and medical evaluation. Plan: AMS - Delirium precautions - Patient showing clinical improvement upon review of chart notes - Likely secondary to depression vs. previous brain injury in form of metabolic encephalopathy vs residual stroke deficits Bacteremia with S. viridans/mitis and Coag negative Staph Bactermia - Last bld clx negative 12/04/17 with completion of 6 week course of antibiotics - Monitor WBC, ESR, CRP weekly - Clinically stable - Echocardiogram unable to rule out vegetations, family is unavailable for consent for TAHIR - Patient did complete 6 week course of antibiotics Colonic Neoplasm - CT Abd/Pelvis showing colonic mass and hepatic lesions - GI consulted and following patient - Flex sig/colonoscopy refused by patient at this time - Family unable to be contacted for consent Ischemic Stroke - ASA 81 mg - Lipitor 20mg - PT recommendations for JOSIAH DM 2 - ACHS - Levemir 12 units HS - Continue ISS - Carb consistent diet HTN - Lisinopril 10mg Daily - Norvasc 10mg Daily Sacral Decubitus - OOB to chair ordered, patient refusing - Z gaurd PRN - PT TID/weekly Affective disorder - Celexa 10mg PO Daily - Seroquel HS GI/DVT ppx - Protonix - SCDs Dispo: Patient lacks decision making capacity and is unable to comprehend his diagnosis, medical treatment, potential benefit and risk associated with and without treatment. [facility] [place] [facility] to be pending. Case and plan discussed with attending Yasmin Bowie PGY-1 <Sixto Galo - Last Filed: 01/27/18 14:48> Objective - Vital Signs/Intake and Output Vital Signs (last 24 hours): Temp Pulse Resp BP Pulse Ox 97.6 F 90 20 132/72 97 01/27/18 08:11 01/27/18 08:11 01/27/18 08:11 01/27/18 09:47 01/27/18 08:11 Intake and Output: 01/27/18 01/27/18 06:59 18:59 Intake Total 720 Balance 720 - Medications Medications: Current Medications Amlodipine Besylate (Norvasc) 10 mg PO DAILY [facility] Last Admin: 01/27/18 09:47 Dose: 10 mg Aspirin (Ecotrin) 81 mg PO DAILY [facility] Last Admin: 01/27/18 09:47 Dose: 81 mg Atorvastatin Calcium (Lipitor) 20 mg PO DIN [facility] Last Admin: 01/26/18 17:26 Dose: 20 mg Citalopram Hydrobromide (Celexa) 10 mg PO DAILY [facility] Last Admin: 01/27/18 09:47 Dose: 10 mg Clotrimazole (Lotrimin Af 1%) 0 ml TOP BID [facility] Last Admin: 01/27/18 09:46 Dose: 1 applic Enoxaparin Sodium (Lovenox) 40 mg SC DAILY [facility] PRN Reason: Protocol Last Admin: 01/27/18 09:47 Dose: 40 mg Folic Acid (Folic Acid) 1 mg PO DAILY [facility] Last Admin: 01/27/18 09:47 Dose: 1 mg Insulin Detemir (Levemir) 12 unit SC HS [facility] Last Admin: 01/26/18 22:15 Dose: 12 unit Insulin Human Lispro (Humalog Low) 0 units SC ACHS [facility] PRN Reason: Protocol Last Admin: 01/27/18 12:35 Dose: 2 units Insulin Human Regular (Humulin R) 3 units SC AC [facility] Last Admin: 01/27/18 12:36 Dose: 3 units Lisinopril (Zestril) 10 mg PO DAILY [facility] Last Admin: 01/27/18 09:47 Dose: 10 mg Multivitamins/Minerals (Therapeutic-M Tab) 1 tab PO 0800 [facility] Last Admin: 01/27/18 09:49 Dose: 1 tab Pantoprazole Sodium (Protonix Ec Tab) 40 mg PO 0600 [facility] Last Admin: 01/27/18 05:35 Dose: 40 mg Quetiapine Fumarate (Seroquel) 12.5 mg PO HS PRN; Protocol PRN Reason: Agitation Last Admin: 01/27/18 00:11 Dose: 12.5 mg Thiamine HCl (Vitamin B1 Tab) 100 mg PO DAILY [facility] Last Admin: 01/27/18 09:47 Dose: 100 mg Zinc Sulfate (Zinc Sulfate 220 Mg Cap) 220 mg PO DAILY [facility] Last Admin: 01/27/18 09:47 Dose: 220 mg - Labs Labs: 01/26/18 06:00 01/26/18 06:00 PT 12.5 SECONDS (9.4-12.5) 12/09/17 10:00 INR 1.09 (0.93-1.08) H 12/09/17 10:00 APTT 28.3 Seconds (25.1-36.5) 11/30/17 05:30 Attending/Attestation - Attestation I have personally seen and examined this patient.: Yes I have fully participated in the care of the patient.: Yes I have reviewed all pertinent clinical information, including history, physical exam and plan: Yes Notes (Text): 01/27/18 14:47 57 year old male with no know past medical history who was admitted with altered mental status. He was initially treated for right hip cellulitis, pneumonia and flu earlier earlier during the admission. He was also found to have strep viridans bacteremia for which he has completed course of iv antibiotics. Echocardiogram could not rule out vegetations however family is not available to give consent for TAHIR. CT abd/pelvis showed colonic mass and liver lesions. At this time consent cannot be obtained for sigmoidoscopy or biopsy. He was also found to have acute vs subacute infarct. He is on aspirin and statin. PT has recommended JOSIAH. He is on levemir and insulin ss for diabetes. He is on norvasc and lisinopril for hypertension. Case management and licensed clinical social worker are working on guardianship and disposition. Sixto Galo MD Hospitalist.
[2018-01-27] MEDS: Insulin Detemir 100 units/ml Vial (Levemir) SC SCH (22:35)
[2018-01-28] MEDS: Pantoprazole 40 mg EC Tab PO SCH (06:28)
[2018-01-28] MEDS: Insulin Regular 1 UNITS/0.01 ML ML SC SCH ×3 (07:46→17:16)
[2018-01-28] MEDS: Insulin Lispro (humaLOG) LOW Coverage SC SCH ×4 (08:08→21:42)
[2018-01-28] MEDS: Multivitamin With Minerals Tab PO SCH (08:48)
[2018-01-28] MEDS: Clotrimazole 1% Top Soln(10 ml) TOP SCH ×2 (09:46→17:17)
[2018-01-28] MEDS: Enoxaparin 40 mg Syringe SC SCH (09:47)
--- NOTE | 2018-01-28 12:28 | CP.PCM.PN ---
<Rocael Bowie - Last Filed: 01/28/18 12:23> Subjective - Date & Time of Evaluation Date of Evaluation: 01/28/18 Time of Evaluation: 12:23 - Subjective Subjective: Patient seen and evaluated this AM. No acute events reported overnight. Patient denies complaints at this time. Patient has no questions at time of interview. Objective - Vital Signs/Intake and Output Vital Signs (last 24 hours): Temp Pulse Resp BP Pulse Ox 97.9 F 90 20 126/85 93 L 01/28/18 08:14 01/28/18 09:48 01/28/18 08:14 01/28/18 09:48 01/28/18 08:14 Intake and Output: 01/28/18 01/28/18 06:59 18:59 Intake Total 900 Balance 900 - Medications Medications: Current Medications Amlodipine Besylate (Norvasc) 10 mg PO DAILY [facility] Last Admin: 01/28/18 09:47 Dose: 10 mg Aspirin (Ecotrin) 81 mg PO DAILY [facility] Last Admin: 01/28/18 09:46 Dose: 81 mg Atorvastatin Calcium (Lipitor) 20 mg PO DIN [facility] Last Admin: 01/27/18 17:02 Dose: 20 mg Citalopram Hydrobromide (Celexa) 10 mg PO DAILY [facility] Last Admin: 01/28/18 09:45 Dose: 10 mg Clotrimazole (Lotrimin Af 1%) 0 ml TOP BID [facility] Last Admin: 01/28/18 09:46 Dose: 1 applic Enoxaparin Sodium (Lovenox) 40 mg SC DAILY [facility] PRN Reason: Protocol Last Admin: 01/28/18 09:47 Dose: 40 mg Folic Acid (Folic Acid) 1 mg PO DAILY [facility] [place] Last Admin: 01/28/18 09:46 Dose: 1 mg Insulin Detemir (Levemir) 12 unit SC HS [facility] [place] Last Admin: 01/27/18 22:35 Dose: 12 unit Insulin Human Lispro (Humalog Low) 0 units SC ACHS [facility] PRN Reason: Protocol Last Admin: 01/28/18 11:51 Dose: Not Given Insulin Human Regular (Humulin R) 3 units SC AC [facility] Last Admin: 01/28/18 11:59 Dose: 3 units Lisinopril (Zestril) 10 mg PO DAILY [facility] Last Admin: 01/28/18 09:48 Dose: 10 mg Multivitamins/Minerals (Therapeutic-M Tab) 1 tab PO 0800 [facility] Last Admin: 01/28/18 08:48 Dose: 1 tab Pantoprazole Sodium (Protonix Ec Tab) 40 mg PO 0600 [facility] [place] Last Admin: 01/28/18 06:28 Dose: 40 mg Quetiapine Fumarate (Seroquel) 12.5 mg PO HS PRN; Protocol PRN Reason: Agitation Last Admin: 01/27/18 00:11 Dose: 12.5 mg Thiamine HCl (Vitamin B1 Tab) 100 mg PO DAILY [facility] [place] Last Admin: 01/28/18 09:48 Dose: 100 mg Zinc Sulfate (Zinc Sulfate 220 Mg Cap) 220 mg PO DAILY [facility] [place] Last Admin: 01/28/18 09:49 Dose: 220 mg - Labs Labs: 01/26/18 06:00 01/26/18 06:00 PT 12.5 SECONDS (9.4-12.5) 12/09/17 10:00 INR 1.09 (0.93-1.08) H 12/09/17 10:00 APTT 28.3 Seconds (25.1-36.5) 11/30/17 05:30 - Constitutional Appears: Non-toxic, No Acute Distress - Head Exam Head Exam: ATRAUMATIC, NORMAL INSPECTION, NORMOCEPHALIC - Eye Exam Eye Exam: EOMI, PERRL - ENT Exam ENT Exam: Mucous Membranes Moist - Respiratory Exam Respiratory Exam: Clear to Ausculation Bilateral, NORMAL BREATHING PATTERN. absent: Rales, Rhonchi, Wheezes - Cardiovascular Exam Cardiovascular Exam: REGULAR RHYTHM, +S1, +S2 - GI/Abdominal Exam GI & Abdominal Exam: Soft, Normal Bowel Sounds. absent: Guarding, Tenderness - Extremities Exam Extremities Exam: absent: Calf Tenderness, Pedal Edema Additional comments: josh hose in place - Neurological Exam Neurological Exam: Alert, Awake - Psychiatric Exam Psychiatric exam: Normal Affect, Normal Mood - Skin Skin Exam: Dry, Warm Assessment and Plan - Assessment and Plan (Free Text) Assessment: 57 year old male with unknown past medical history who was admitted for AMS, right hip cellulitis, multifocal pneumonia, influenza A, strep viridians bacteremia with findings of stroke on MRI - acute vs. 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 Patient was treated for bacteremia with IV abx. Patient currently is awaiting further medical evaluation in the form of TAHIR and colonoscopy. Patient is refusing testing at this time. Family is unable to be contacted for consent. Plan: AMS - Delirium precautions - Patient mentation has approved based off chart review - Clinically unchanged - Likely secondary to depression vs. previous brain injury in form of metabolic encephalopathy vs residual stroke deficits Bacteremia with S. viridans/mitis and Coag negative Staph Bactermia - Last bld clx negative 12/04/17 with completion of 6 week course of antibiotics - Monitor WBC, ESR, CRP weekly - Clinically stable - Echocardiogram unable to rule out vegetations, family is unavailable for consent for TAHIR - Patient did complete 6 week course of antibiotics Colonic Neoplasm - CT Abd/Pelvis showing colonic mass and hepatic lesions - GI consulted and following patient - Flex sig/colonoscopy refused by patient at this time - Family unable to be contacted for consent Ischemic Stroke - ASA 81 mg - Lipitor 20mg - PT recommendations for JOSIAH DM 2 - ACHS - Levemir 12 units HS - Continue ISS - Carb consistent diet HTN - Lisinopril 10mg Daily - Norvasc 10mg Daily Sacral Decubitus - OOB to chair ordered, patient refusing - Z gaurd PRN - PT TID/weekly Affective disorder - Celexa 10mg PO Daily - Seroquel HS GI/DVT ppx - Protonix - SCDs Dispo: Patient lacks decision making capacity and is unable to comprehend his diagnosis, medical treatment, potential benefit and risk associated with and without treatment. Gaurdianship paperwork continues to be pending. Case and plan discussed with attending Yasmin Bowie PGY-1 <Sixto Galo - Last Filed: 01/28/18 13:47> Objective - Vital Signs/Intake and Output Vital Signs (last 24 hours): Temp Pulse Resp BP Pulse Ox 97.9 F 90 20 126/85 93 L 01/28/18 08:14 01/28/18 09:48 01/28/18 08:14 01/28/18 09:48 01/28/18 08:14 Intake and Output: 01/28/18 01/28/18 06:59 18:59 Intake Total 900 Balance 900 - Medications Medications: Current Medications Amlodipine Besylate (Norvasc) 10 mg PO DAILY [facility] Last Admin: 01/28/18 09:47 Dose: 10 mg Aspirin (Ecotrin) 81 mg PO DAILY [facility] Last Admin: 01/28/18 09:46 Dose: 81 mg Atorvastatin Calcium (Lipitor) 20 mg PO DIN [facility] Last Admin: 01/27/18 17:02 Dose: 20 mg Citalopram Hydrobromide (Celexa) 10 mg PO DAILY [facility] [place] Last Admin: 01/28/18 09:45 Dose: 10 mg Clotrimazole (Lotrimin Af 1%) 0 ml TOP BID [facility] [place] Last Admin: 01/28/18 09:46 Dose: 1 applic Enoxaparin Sodium (Lovenox) 40 mg SC DAILY [facility] PRN Reason: Protocol Last Admin: 01/28/18 09:47 Dose: 40 mg Folic Acid (Folic Acid) 1 mg PO DAILY [facility] [place] Last Admin: 01/28/18 09:46 Dose: 1 mg Insulin Detemir (Levemir) 12 unit SC HS [facility] Last Admin: 01/27/18 22:35 Dose: 12 unit Insulin Human Lispro (Humalog Low) 0 units SC [facility] PRN Reason: Protocol Last Admin: 01/28/18 11:51 Dose: Not Given Insulin Human Regular (Humulin R) 3 units SC AC [facility] Last Admin: 01/28/18 11:59 Dose: 3 units Lisinopril (Zestril) 10 mg PO DAILY [facility] Last Admin: 01/28/18 09:48 Dose: 10 mg Multivitamins/Minerals (Therapeutic-M Tab) 1 tab PO 0800 [facility] Last Admin: 01/28/18 08:48 Dose: 1 tab Pantoprazole Sodium (Protonix Ec Tab) 40 mg PO 0600 [facility] Last Admin: 01/28/18 06:28 Dose: 40 mg Quetiapine Fumarate (Seroquel) 12.5 mg PO HS PRN; Protocol PRN Reason: Agitation Last Admin: 01/27/18 00:11 Dose: 12.5 mg Thiamine HCl (Vitamin B1 Tab) 100 mg PO DAILY [facility] [place] Last Admin: 01/28/18 09:48 Dose: 100 mg Zinc Sulfate (Zinc Sulfate 220 Mg Cap) 220 mg PO DAILY [facility] [place] Last Admin: 01/28/18 09:49 Dose: 220 mg - Labs Labs: 01/26/18 06:00 01/26/18 06:00 PT 12.5 SECONDS (9.4-12.5) 12/09/17 10:00 INR 1.09 (0.93-1.08) H 12/09/17 10:00 APTT 28.3 Seconds (25.1-36.5) 11/30/17 05:30 Attending/Attestation - Attestation I have personally seen and examined this patient.: Yes I have fully participated in the care of the patient.: Yes I have reviewed all pertinent clinical information, including history, physical exam and plan: Yes Notes (Text): 01/28/18 13:46 57 year old male with no know past medical history who was admitted with altered mental status. He was initially treated for right hip cellulitis, pneumonia and flu earlier earlier during the admission. He was also found to have strep viridans bacteremia for which he has completed course of iv antibiotics. Echocardiogram could not rule out vegetations however family is not available to give consent for TAHIR. CT abd/pelvis showed colonic mass and liver lesions. At this time consent cannot be obtained for sigmoidoscopy or biopsy. He was also found to have acute vs subacute infarct. He is on aspirin and statin. PT has recommended JOSIAH. Continue with levemir and insulin ss for diabetes. Continue with norvasc and lisinopril for hypertension. Case management and social sciences instructor are working on guardianship and disposition. Sixto Galo MD Hospitalist.
--- NOTE | 2018-01-28 13:55 | CP.PCM.PN ---
Subjective - Date & Time of Evaluation Date of Evaluation: 01/28/18 Time of Evaluation: 09:35 - Subjective Subjective: Comfortable, no fevers, not in distress, no diarrhea. Objective - Vital Signs/Intake and Output Vital Signs (last 24 hours): Temp Pulse Resp BP Pulse Ox 98.3 F 66 20 101/53 L 96 01/27/18 16:00 01/27/18 16:00 01/27/18 16:00 01/27/18 16:00 01/27/18 16:00 Intake and Output: 01/27/18 01/28/18 18:59 06:59 Intake Total 780 Balance 780 - Medications Medications: Current Medications Amlodipine Besylate (Norvasc) 10 mg PO DAILY [facility] Last Admin: 01/27/18 09:47 Dose: 10 mg Aspirin (Ecotrin) 81 mg PO DAILY [facility] Last Admin: 01/27/18 09:47 Dose: 81 mg Atorvastatin Calcium (Lipitor) 20 mg PO DIN [facility] Last Admin: 01/27/18 17:02 Dose: 20 mg Citalopram Hydrobromide (Celexa) 10 mg PO DAILY [facility] Last Admin: 01/27/18 09:47 Dose: 10 mg Clotrimazole (Lotrimin Af 1%) 0 ml TOP BID [facility] Last Admin: 01/27/18 17:02 Dose: 1 applic Enoxaparin Sodium (Lovenox) 40 mg SC DAILY [facility] PRN Reason: Protocol Last Admin: 01/27/18 09:47 Dose: 40 mg Folic Acid (Folic Acid) 1 mg PO DAILY [facility] Last Admin: 01/27/18 09:47 Dose: 1 mg Insulin Detemir (Levemir) 12 unit SC HS [facility] Last Admin: 01/27/18 22:35 Dose: 12 unit Insulin Human Lispro (Humalog Low) 0 units SC ACHS [facility] PRN Reason: Protocol Last Admin: 01/27/18 21:50 Dose: Not Given Insulin Human Regular (Humulin R) 3 units SC AC [facility] Last Admin: 01/27/18 17:02 Dose: 3 units Lisinopril (Zestril) 10 mg PO DAILY [facility] Last Admin: 01/27/18 09:47 Dose: 10 mg Multivitamins/Minerals (Therapeutic-M Tab) 1 tab PO 0800 [facility] Last Admin: 01/27/18 09:49 Dose: 1 tab Pantoprazole Sodium (Protonix Ec Tab) 40 mg PO 0600 [facility] Last Admin: 01/27/18 05:35 Dose: 40 mg Quetiapine Fumarate (Seroquel) 12.5 mg PO HS PRN; Protocol PRN Reason: Agitation Last Admin: 01/27/18 00:11 Dose: 12.5 mg Thiamine HCl (Vitamin B1 Tab) 100 mg PO DAILY [facility] Last Admin: 01/27/18 09:47 Dose: 100 mg Zinc Sulfate (Zinc Sulfate 220 Mg Cap) 220 mg PO DAILY [facility] Last Admin: 01/27/18 09:47 Dose: 220 mg - Labs Labs: 01/26/18 06:00 01/26/18 06:00 PT 12.5 SECONDS (9.4-12.5) 12/09/17 10:00 INR 1.09 (0.93-1.08) H 12/09/17 10:00 APTT 28.3 Seconds (25.1-36.5) 11/30/17 05:30 - Constitutional Appears: Non-toxic, Chronically Ill - Head Exam Head Exam: NORMAL INSPECTION - ENT Exam ENT Exam: Mucous Membranes Moist - Neck Exam Neck Exam: absent: Lymphadenopathy, Meningismus - Respiratory Exam Respiratory Exam: Decreased Breath Sounds - Cardiovascular Exam Cardiovascular Exam: +S1, +S2 - GI/Abdominal Exam GI & Abdominal Exam: Soft. absent: Tenderness Assessment and Plan - Assessment and Plan (Free Text) Plan: Assessment S/P sepsis due to strep viridans and CoNS bacteremia from right gluteal and back cellulitis S/P multifocal HCAP on top of Influenza A infection S/P Sammie infection of sacral area as well peripheral vascular disease Plan completed 42 days of antibiotics - continue to follow clinically off antibiotics since he is at risk for nosocomial infections
[2018-01-28] MEDS: Insulin Detemir 100 units/ml Vial (Levemir) SC SCH (21:41)
[2018-01-29] MEDS: Pantoprazole 40 mg EC Tab PO SCH (06:57)
--- NOTE | 2018-01-29 08:22 | PN ---
DATE: 01/29/2018 SUBJECTIVE: The patient is in bed, in no acute distress, nontoxic. The patient is seen early this morning in room 363, bed 1. PHYSICAL EXAMINATION: VITAL SIGNS: Temperature is 98, blood pressure is 115/70, respiratory rate of 18. HEENT: Examination of HEENT is unremarkable. NECK: Supple. LUNGS: Have decreased breath sounds. HEART: Normal S1 and S2. ABDOMEN: Soft, nontender. LABORATORY DATA: Laboratory examination reveals the patient's white count is 8.6, sed rate is 45. Chemistries are noted and review of orders reveals the patient to be off of antibiotics. ASSESSMENT AND PLAN: A 57-year-old male who was seen earlier this morning in room 363, bed 1 with status post sepsis due to Streptococcus viridans and coag-negative Staphylococcus bacteremia from right gluteal and back cellulitis with status post multifocal healthcare-associated pneumonia on top of influenza A infection and has completed 42 days of antibiotics. Currently off of antibiotics, afebrile; however, he is at risk for developing nosocomial infection. Daniel Torres MD
[2018-01-29 08:51] LABS: HEMOGLOBIN 11.9 g/dL (14.0-18.0); MEAN CELL VOLUME 87.5 fl (80.0-105.0); MEAN CORPUSCULAR HEMOGLOBIN 29.2 pg (25.0-35.0); MEAN CORPUSCULAR HGB CONC 33.3 g/dl (31.0-37.0); MEAN PLATELET VOLUME 8.4 fl (7.0-11.0); RBC 4.08 10^6/uL (3.5-6.1); RED CELL DISTRIBUTION WIDTH 15.2 % (11.5-14.5); WHITE BLOOD COUNT 8.5 10^3/ul (4.5-11.0)
[2018-01-29 09:12] LABS: ALB/GLOB RATIO 1.3 (1.1-1.8); ALT/SGPT 27 U/L (7-56); AST/SGOT 28 U/L (17-59); BLOOD UREA NITROGEN 17 mg/dL (7-21); CALCIUM 9.5 mg/dL (8.4-10.5); GFR NON-AFRICAN AMERICAN > 60
[2018-01-29] MEDS: Insulin Lispro (humaLOG) LOW Coverage SC SCH ×4 (09:12→22:00)
[2018-01-29] MEDS: Insulin Regular 1 UNITS/0.01 ML ML SC SCH ×3 (10:08→17:51)
[2018-01-29] MEDS: Clotrimazole 1% Top Soln(10 ml) TOP SCH (10:09)
[2018-01-29] MEDS: Enoxaparin 40 mg Syringe SC SCH (10:09)
[2018-01-29] MEDS: Multivitamin With Minerals Tab PO SCH (10:10)
--- NOTE | 2018-01-29 15:48 | CP.PCM.PN ---
<Rocael Bowie - Last Filed: 01/29/18 15:44> Subjective - Date & Time of Evaluation Date of Evaluation: 01/29/18 Time of Evaluation: 15:45 - Subjective Subjective: Patient seen and examined this AM. Patient reportedly had bloody bowel movement overnight per nursing and handoff. Patient denies abdominal pain, bloody stool at time of interview. Patient continues to show poor insight. Objective - Vital Signs/Intake and Output Vital Signs (last 24 hours): Temp Pulse Resp BP Pulse Ox 98.7 F 90 17 118/61 97 01/29/18 06:00 01/29/18 06:00 01/29/18 06:00 01/29/18 10:09 01/29/18 06:00 Intake and Output: 01/29/18 01/29/18 06:59 18:59 Intake Total 500 Balance 500 - Medications Medications: Current Medications Amlodipine Besylate (Norvasc) 10 mg PO DAILY [facility] Last Admin: 01/29/18 10:09 Dose: 10 mg Aspirin (Ecotrin) 81 mg PO DAILY [facility] Last Admin: 01/29/18 10:08 Dose: 81 mg Atorvastatin Calcium (Lipitor) 20 mg PO DIN [facility] Last Admin: 01/28/18 17:16 Dose: 20 mg Citalopram Hydrobromide (Celexa) 10 mg PO DAILY [facility] Last Admin: 01/29/18 10:08 Dose: 10 mg Clotrimazole (Lotrimin Af 1%) 0 ml TOP BID [facility] Last Admin: 01/29/18 10:09 Dose: 1 applic Enoxaparin Sodium (Lovenox) 40 mg SC DAILY [facility] PRN Reason: Protocol Last Admin: 01/29/18 10:09 Dose: 40 mg Folic Acid (Folic Acid) 1 mg PO DAILY [facility] Last Admin: 01/29/18 10:08 Dose: 1 mg Insulin Detemir (Levemir) 12 unit SC HS [facility] Last Admin: 01/28/18 21:41 Dose: 12 unit Insulin Human Lispro (Humalog Low) 0 units SC ACHS [facility] PRN Reason: Protocol Last Admin: 01/29/18 15:27 Dose: Not Given Insulin Human Regular (Humulin R) 3 units SC AC [facility] Last Admin: 01/29/18 15:27 Dose: Not Given Lisinopril (Zestril) 10 mg PO DAILY [facility] Last Admin: 01/29/18 10:10 Dose: 10 mg Multivitamins/Minerals (Therapeutic-M Tab) 1 tab PO 0800 [facility] Last Admin: 01/29/18 10:10 Dose: 1 tab Pantoprazole Sodium (Protonix Ec Tab) 40 mg PO 0600 [facility] Last Admin: 01/29/18 06:57 Dose: 40 mg Quetiapine Fumarate (Seroquel) 12.5 mg PO HS PRN; Protocol PRN Reason: Agitation Last Admin: 01/28/18 21:42 Dose: 12.5 mg Thiamine HCl (Vitamin B1 Tab) 100 mg PO DAILY [facility] Last Admin: 01/29/18 10:10 Dose: 100 mg Zinc Sulfate (Zinc Sulfate 220 Mg Cap) 220 mg PO DAILY [facility] Last Admin: 01/29/18 10:10 Dose: 220 mg - Labs Labs: 01/29/18 08:47 01/29/18 08:47 PT 12.5 SECONDS (9.4-12.5) 12/09/17 10:00 INR 1.09 (0.93-1.08) H 12/09/17 10:00 APTT 28.3 Seconds (25.1-36.5) 11/30/17 05:30 - Constitutional Appears: Non-toxic - Head Exam Head Exam: ATRAUMATIC, NORMAL INSPECTION, NORMOCEPHALIC - Eye Exam Eye Exam: EOMI, PERRL - ENT Exam ENT Exam: Mucous Membranes Moist - Respiratory Exam Respiratory Exam: Clear to Ausculation Bilateral, NORMAL BREATHING PATTERN. absent: Rhonchi, Wheezes - Cardiovascular Exam Cardiovascular Exam: REGULAR RHYTHM, +S1, +S2 - GI/Abdominal Exam GI & Abdominal Exam: Soft, Normal Bowel Sounds. absent: Guarding, Rigid, Tenderness - Extremities Exam Extremities Exam: absent: Calf Tenderness, Pedal Edema - Neurological Exam Neurological Exam: Alert, Awake, Oriented x3 Additional comments: motor and sensory grossly intact - Psychiatric Exam Psychiatric exam: Flat Affect - Skin Skin Exam: Dry, Warm Assessment and Plan - Assessment and Plan (Free Text) Assessment: 57 year old male with unknown past medical history who was admitted for AMS, right hip cellulitis, multifocal pneumonia, influenza A, strep viridians bacteremia with findings of stroke on MRI - acute vs. 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 Patient was treated for bacteremia with IV abx. Patient currently is awaiting further medical evaluation in the form of TAHIR and colonoscopy. Patient is refusing testing at this time. Family is unable to be contacted for consent Plan: Report of Bloody stool - FOBT ordered - H/H stable at this time - Continue to monitor clinically AMS - Delirium precautions - Patient mentation has approved based off chart review - Clinically unchanged - Likely secondary to depression vs. previous brain injury in form of metabolic encephalopathy vs residual stroke deficits Bacteremia with S. viridans/mitis and Coag negative Staph Bactermia - Last bld clx negative 12/04/17 with completion of 6 week course of antibiotics - Monitor WBC, ESR, CRP weekly - Clinically stable - Echocardiogram unable to rule out vegetations, family is unavailable for consent for TAHIR - Patient did complete 6 week course of antibiotics Colonic Neoplasm - CT Abd/Pelvis showing colonic mass and hepatic lesions - GI consulted and following patient - Flex sig/colonoscopy refused by patient at this time - Family unable to be contacted for consent Ischemic Stroke - ASA 81 mg - Lipitor 20mg - PT recommendations for JOSIAH DM 2 - ACHS - Levemir 12 units HS - Continue ISS - Carb consistent diet HTN - Lisinopril 10mg Daily - Norvasc 10mg Daily Sacral Decubitus - OOB to chair ordered, patient refusing - Z gaurd PRN - PT TID/weekly Affective disorder - Celexa 10mg PO Daily - Seroquel HS GI/DVT ppx - Protonix - SCDs Dispo: Patient lacks decision making capacity and is unable to comprehend his diagnosis, medical treatment, potential benefit and risk associated with and without treatment. [facility] paperwork continues to be pending. Case and plan discussed with attending Yasmin Bowie PGY-1 <Sixto Galo - Last Filed: 01/29/18 15:55> Objective - Vital Signs/Intake and Output Vital Signs (last 24 hours): Temp Pulse Resp BP Pulse Ox 98.7 F 90 17 118/61 97 01/29/18 06:00 01/29/18 06:00 01/29/18 06:00 01/29/18 10:09 01/29/18 06:00 Intake and Output: 01/29/18 01/29/18 06:59 18:59 Intake Total 500 Balance 500 - Medications Medications: Current Medications Amlodipine Besylate (Norvasc) 10 mg PO DAILY [facility] Last Admin: 01/29/18 10:09 Dose: 10 mg Aspirin (Ecotrin) 81 mg PO DAILY [facility] Last Admin: 01/29/18 10:08 Dose: 81 mg Atorvastatin Calcium (Lipitor) 20 mg PO DIN [facility] Last Admin: 01/28/18 17:16 Dose: 20 mg Citalopram Hydrobromide (Celexa) 10 mg PO DAILY [facility] Last Admin: 01/29/18 10:08 Dose: 10 mg Clotrimazole (Lotrimin Af 1%) 0 ml TOP BID [facility] Last Admin: 01/29/18 10:09 Dose: 1 applic Enoxaparin Sodium (Lovenox) 40 mg SC DAILY [facility] PRN Reason: Protocol Last Admin: 01/29/18 10:09 Dose: 40 mg Folic Acid (Folic Acid) 1 mg PO DAILY [facility] Last Admin: 01/29/18 10:08 Dose: 1 mg Insulin Detemir (Levemir) 12 unit SC HS [facility] Last Admin: 01/28/18 21:41 Dose: 12 unit Insulin Human Lispro (Humalog Low) 0 units SC [facility] PRN Reason: Protocol Last Admin: 01/29/18 15:27 Dose: Not Given Insulin Human Regular (Humulin R) 3 units SC AC [facility] Last Admin: 01/29/18 15:27 Dose: Not Given Lisinopril (Zestril) 10 mg PO DAILY [facility] Last Admin: 01/29/18 10:10 Dose: 10 mg Multivitamins/Minerals (Therapeutic-M Tab) 1 tab PO 0800 [facility] Last Admin: 01/29/18 10:10 Dose: 1 tab Pantoprazole Sodium (Protonix Ec Tab) 40 mg PO 0600 [facility] Last Admin: 01/29/18 06:57 Dose: 40 mg Quetiapine Fumarate (Seroquel) 12.5 mg PO HS PRN; Protocol PRN Reason: Agitation Last Admin: 01/28/18 21:42 Dose: 12.5 mg Thiamine HCl (Vitamin B1 Tab) 100 mg PO DAILY [facility] Last Admin: 01/29/18 10:10 Dose: 100 mg Zinc Sulfate (Zinc Sulfate 220 Mg Cap) 220 mg PO DAILY [facility] Last Admin: 01/29/18 10:10 Dose: 220 mg - Labs Labs: 01/29/18 08:47 01/29/18 08:47 PT 12.5 SECONDS (9.4-12.5) 12/09/17 10:00 INR 1.09 (0.93-1.08) H 12/09/17 10:00 APTT 28.3 Seconds (25.1-36.5) 11/30/17 05:30 Attending/Attestation - Attestation I have personally seen and examined this patient.: Yes I have fully participated in the care of the patient.: Yes I have reviewed all pertinent clinical information, including history, physical exam and plan: Yes Notes (Text): 01/29/18 15:53 57 year old male with no know past medical history who was admitted with altered mental status. He was initially treated for right hip cellulitis, pneumonia and flu earlier earlier during the admission. He was also found to have strep viridans bacteremia for which he has completed course of iv antibiotics. Echocardiogram could not rule out vegetations however family is not available to give consent for TAHIR. CT abd/pelvis showed colonic mass and liver lesions. At this time consent cannot be obtained for sigmoidoscopy or biopsy. He was also found to have acute vs subacute infarct. He is on aspirin and statin. PT has recommended JOSIAH. Continue with levemir and insulin ss for diabetes. Continue with norvasc and lisinopril for hypertension. Overnight he was reported to have ?blood in his stools. Patient denies. H/H is stable. Will check stool for occult blood and consider GI follow up if positive. Case management and licensed clinical social worker are working on guardianship and disposition. Sixto Galo MD Hospitalist.
[2018-01-29] MEDS: Insulin Detemir 100 units/ml Vial (Levemir) SC SCH (22:00)
[2018-01-30] MEDS: Pantoprazole 40 mg EC Tab PO SCH (05:23)
[2018-01-30] MEDS: Insulin Regular 1 UNITS/0.01 ML ML SC SCH ×3 (10:10→18:10)
[2018-01-30] MEDS: Insulin Lispro (humaLOG) LOW Coverage SC SCH ×4 (10:10→22:04)
[2018-01-30] MEDS: Enoxaparin 40 mg Syringe SC SCH (10:11)
[2018-01-30] MEDS: Clotrimazole 1% Top Soln(10 ml) TOP SCH (10:11)
[2018-01-30] MEDS: Multivitamin With Minerals Tab PO SCH (10:12)
--- NOTE | 2018-01-30 10:25 | PN ---
DATE: 01/30/2018 SUBJECTIVE: The patient is seen early this morning in room 363 bed 1. No fevers and chills. OBJECTIVE VITAL SIGNS: On exam, temperature is 97, blood pressure is 115/70, respiratory rate of 18. HEENT: Examination is unremarkable. NECK: Supple. LUNGS: Have decreased breath sounds. HEART: Normal S1, S2. ABDOMEN: Soft, nontender. DATA: Laboratory examination reveals a white count of 8.5, hemoglobin of 11, platelets of 338. Chemistries reveals a BUN of 17, creatinine of 0.6. Procalcitonin is 0.28. Review of orders reveal the patient to be off of antibiotics. ASSESSMENT AND PLAN: This is a 57-year-old male who was seen earlier this morning. The patient had status post Strep viridans and Coag-negative staph bacteremia, right gluteal and back cellulitis, multifocal healthcare-associated pneumonia influenza, completed 42 days of antibiotics, currently off of antibiotics, afebrile and we will follow closely with you. Daniel Torres MD cc:
--- NOTE | 2018-01-30 13:02 | CP.PCM.PN ---
<Rocael Bowie - Last Filed: 01/30/18 12:59> Subjective - Date & Time of Evaluation Date of Evaluation: 01/30/18 Time of Evaluation: 12:59 - Subjective Subjective: Patient seen and examined this AM. No acute events reported overnight. Patient denies abdominal pain, bloody in stool, chest pain, shortenss of breath, tachycardia. Patient has no questions or complaints at this time. Objective - Vital Signs/Intake and Output Vital Signs (last 24 hours): Temp Pulse Resp BP Pulse Ox 97.5 F L 90 20 110/77 95 01/30/18 06:00 01/30/18 06:00 01/30/18 06:00 01/30/18 10:11 01/30/18 06:00 Intake and Output: 01/30/18 01/30/18 06:59 18:59 Intake Total 540 Balance 540 - Medications Medications: Current Medications Amlodipine Besylate (Norvasc) 10 mg PO DAILY [facility] Last Admin: 01/30/18 10:11 Dose: 10 mg Aspirin (Ecotrin) 81 mg PO DAILY [facility] Last Admin: 01/30/18 10:10 Dose: 81 mg Atorvastatin Calcium (Lipitor) 20 mg PO DIN [facility] Last Admin: 01/29/18 17:52 Dose: 20 mg Citalopram Hydrobromide (Celexa) 10 mg PO DAILY [facility] Last Admin: 01/30/18 10:10 Dose: 10 mg Clotrimazole (Lotrimin Af 1%) 0 ml TOP BID [facility] Last Admin: 01/30/18 10:11 Dose: Not Given Enoxaparin Sodium (Lovenox) 40 mg SC DAILY [facility] PRN Reason: Protocol Last Admin: 01/30/18 10:11 Dose: 40 mg Folic Acid (Folic Acid) 1 mg PO DAILY [facility] Last Admin: 01/30/18 10:10 Dose: 1 mg Insulin Detemir (Levemir) 12 unit SC HS [facility] Last Admin: 01/29/18 22:00 Dose: Not Given Insulin Human Lispro (Humalog Low) 0 units SC ACHS [facility] PRN Reason: Protocol Last Admin: 01/30/18 10:10 Dose: 1 units Insulin Human Regular (Humulin R) 3 units SC AC [facility] Last Admin: 01/30/18 10:10 Dose: 3 units Lisinopril (Zestril) 10 mg PO DAILY [facility] Last Admin: 01/30/18 10:12 Dose: 10 mg Multivitamins/Minerals (Therapeutic-M Tab) 1 tab PO 0800 [facility] Last Admin: 01/30/18 10:12 Dose: 1 tab Pantoprazole Sodium (Protonix Ec Tab) 40 mg PO 0600 [facility] Last Admin: 01/30/18 05:23 Dose: 40 mg Quetiapine Fumarate (Seroquel) 12.5 mg PO HS PRN; Protocol PRN Reason: Agitation Last Admin: 01/28/18 21:42 Dose: 12.5 mg Thiamine HCl (Vitamin B1 Tab) 100 mg PO DAILY [facility] Last Admin: 01/30/18 10:12 Dose: 100 mg Zinc Sulfate (Zinc Sulfate 220 Mg Cap) 220 mg PO DAILY [facility] Last Admin: 01/30/18 10:12 Dose: 220 mg - Labs Labs: 01/29/18 08:47 01/29/18 08:47 PT 12.5 SECONDS (9.4-12.5) 12/09/17 10:00 INR 1.09 (0.93-1.08) H 12/09/17 10:00 APTT 28.3 Seconds (25.1-36.5) 11/30/17 05:30 - Constitutional Appears: No Acute Distress - Head Exam Head Exam: ATRAUMATIC, NORMAL INSPECTION, NORMOCEPHALIC - Eye Exam Eye Exam: EOMI, PERRL - ENT Exam ENT Exam: Mucous Membranes Moist - Respiratory Exam Respiratory Exam: Clear to Ausculation Bilateral, NORMAL BREATHING PATTERN. absent: Rhonchi, Wheezes - Cardiovascular Exam Cardiovascular Exam: REGULAR RHYTHM, +S1, +S2 - GI/Abdominal Exam GI & Abdominal Exam: Soft, Normal Bowel Sounds. absent: Guarding, Rigid, Tenderness - Extremities Exam Extremities Exam: absent: Joint Swelling, Pedal Edema, Tenderness - Neurological Exam Neurological Exam: Alert, Awake - Psychiatric Exam Psychiatric exam: Flat Affect, Normal Mood - Skin Skin Exam: Dry, Warm Assessment and Plan - Assessment and Plan (Free Text) Assessment: 57 year old male with unknown past medical history who was admitted for AMS, right hip cellulitis, multifocal pneumonia, influenza A, strep viridians bacteremia with findings of stroke on MRI - acute vs. 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 Patient was treated for bacteremia with IV abx. Patient currently is awaiting further medical evaluation in the form of TAHIR and colonoscopy. Patient continues to refuse testing at this time. Plan: AMS - Delirium precautions - Patient mentation has approved based off chart review - Clinically unchanged - Likely secondary to depression vs. previous brain injury in form of metabolic encephalopathy vs residual stroke deficits Bacteremia with S. viridans/mitis and Coag negative Staph Bactermia - Last bld clx negative 12/04/17 with completion of 6 week course of antibiotics - Monitor WBC, ESR, CRP weekly - Clinically stable - Echocardiogram unable to rule out vegetations, family is unavailable for consent for TAHIR - Patient did complete 6 week course of antibiotics Colonic Neoplasm - CT Abd/Pelvis showing colonic mass and hepatic lesions - GI consulted and following patient - Flex sig/colonoscopy refused by patient at this time - Family unable to be contacted for consent Ischemic Stroke - acute vs. subacute - ASA 81 mg - Lipitor 20mg - PT recommendations for JOSIAH DM 2 - ACHS - Levemir 12 units HS - Continue ISS - Carb consistent diet HTN - Lisinopril 10mg Daily - Norvasc 10mg Daily Affective disorder - Celexa 10mg PO Daily - Seroquel HS - Clinically unchanged GI/DVT ppx - Protonix - SCDs Dispo: Patient lacks decision making capacity and is unable to comprehend his diagnosis, medical treatment, potential benefit and risk associated with and without treatment. Guardianship paperwork continues to be pending. Case and plan discussed with attending Yasmin Bowie PGY-1 <Sixto Galo - Last Filed: 01/30/18 14:15> Objective - Vital Signs/Intake and Output Vital Signs (last 24 hours): Temp Pulse Resp BP Pulse Ox 97.5 F L 90 20 110/77 95 01/30/18 06:00 01/30/18 06:00 01/30/18 06:00 01/30/18 10:11 01/30/18 06:00 Intake and Output: 01/30/18 01/30/18 06:59 18:59 Intake Total 540 Balance 540 - Medications Medications: Current Medications Amlodipine Besylate (Norvasc) 10 mg PO DAILY [facility] Last Admin: 01/30/18 10:11 Dose: 10 mg Aspirin (Ecotrin) 81 mg PO DAILY [facility] Last Admin: 01/30/18 10:10 Dose: 81 mg Atorvastatin Calcium (Lipitor) 20 mg PO DIN [facility] Last Admin: 01/29/18 17:52 Dose: 20 mg Citalopram Hydrobromide (Celexa) 10 mg PO DAILY [facility] Last Admin: 01/30/18 10:10 Dose: 10 mg Clotrimazole (Lotrimin Af 1%) 0 ml TOP BID [facility] Last Admin: 01/30/18 10:11 Dose: Not Given Enoxaparin Sodium (Lovenox) 40 mg SC DAILY [facility] PRN Reason: Protocol Last Admin: 01/30/18 10:11 Dose: 40 mg Folic Acid (Folic Acid) 1 mg PO DAILY [facility] Last Admin: 01/30/18 10:10 Dose: 1 mg Insulin Detemir (Levemir) 12 unit SC HS [facility] Last Admin: 01/29/18 22:00 Dose: Not Given Insulin Human Lispro (Humalog Low) 0 units SC [facility] PRN Reason: Protocol Last Admin: 01/30/18 13:16 Dose: 1 units Insulin Human Regular (Humulin R) 3 units SC AC [facility] Last Admin: 01/30/18 13:16 Dose: 3 units Lisinopril (Zestril) 10 mg PO DAILY [facility] Last Admin: 01/30/18 10:12 Dose: 10 mg Multivitamins/Minerals (Therapeutic-M Tab) 1 tab PO 0800 [facility] Last Admin: 01/30/18 10:12 Dose: 1 tab Pantoprazole Sodium (Protonix Ec Tab) 40 mg PO 0600 [facility] Last Admin: 01/30/18 05:23 Dose: 40 mg Quetiapine Fumarate (Seroquel) 12.5 mg PO HS PRN; Protocol PRN Reason: Agitation Last Admin: 01/28/18 21:42 Dose: 12.5 mg Thiamine HCl (Vitamin B1 Tab) 100 mg PO DAILY [facility] Last Admin: 01/30/18 10:12 Dose: 100 mg Zinc Sulfate (Zinc Sulfate 220 Mg Cap) 220 mg PO DAILY [facility] Last Admin: 01/30/18 10:12 Dose: 220 mg - Labs Labs: 01/29/18 08:47 01/29/18 08:47 PT 12.5 SECONDS (9.4-12.5) 12/09/17 10:00 INR 1.09 (0.93-1.08) H 12/09/17 10:00 APTT 28.3 Seconds (25.1-36.5) 11/30/17 05:30 Attending/Attestation - Attestation I have personally seen and examined this patient.: Yes I have fully participated in the care of the patient.: Yes I have reviewed all pertinent clinical information, including history, physical exam and plan: Yes Notes (Text): 01/30/18 14:14 57 year old male with no know past medical history who was admitted with altered mental status. He was initially treated for right hip cellulitis, pneumonia and flu earlier earlier during the admission. He was also found to have strep viridans bacteremia for which he has completed course of iv antibiotics. Echocardiogram could not rule out vegetations however family is not available to give consent for TAHIR. CT abd/pelvis showed colonic mass and liver lesions. At this time consent cannot be obtained for sigmoidoscopy or biopsy. He reportedly had ?blood in his stools two days prior. H/H is stable. Will monitor closely. Stool for occult blood is ordered. If positive, can request for GI follow up. He was also found to have acute vs subacute infarct. He is on aspirin and statin. PT has recommended JOSIAH. Continue with levemir and insulin ss for diabetes. Continue with norvasc and lisinopril for hypertension. Case management and social worker masters are working on guardianship and disposition. Sixto Galo MD Hospitalist.
[2018-01-30] MEDS: Insulin Detemir 100 units/ml Vial (Levemir) SC SCH (22:07)
[2018-01-31] MEDS: Pantoprazole 40 mg EC Tab PO SCH (05:24)
[2018-01-31 06:38] LABS: HEMOGLOBIN 10.8 g/dL (14.0-18.0); MEAN CELL VOLUME 86.9 fl (80.0-105.0); MEAN CORPUSCULAR HEMOGLOBIN 28.9 pg (25.0-35.0); MEAN CORPUSCULAR HGB CONC 33.2 g/dl (31.0-37.0); MEAN PLATELET VOLUME 9.1 fl (7.0-11.0); RBC 3.74 10^6/uL (3.5-6.1); WHITE BLOOD COUNT 8.4 10^3/ul (4.5-11.0)
[2018-01-31 06:45] LABS: BLOOD UREA NITROGEN 18 mg/dL (7-21); CALCIUM 9.4 mg/dL (8.4-10.5); GFR NON-AFRICAN AMERICAN > 60
[2018-01-31] MEDS: Insulin Lispro (humaLOG) LOW Coverage SC SCH ×4 (08:35→22:03)
[2018-01-31] MEDS: Insulin Regular 1 UNITS/0.01 ML ML SC SCH ×3 (08:35→17:14)
--- NOTE | 2018-01-31 08:43 | CP.PCM.PN ---
<Rocael Bowie - Last Filed: 01/31/18 14:02> Subjective - Date & Time of Evaluation Date of Evaluation: 01/31/18 Time of Evaluation: 08:42 - Subjective Subjective: Patient seen and examined this AM. No acute events reported overnight. Patient continues to deny complaints with lacking of insight. Objective - Vital Signs/Intake and Output Vital Signs (last 24 hours): Temp Pulse Resp BP Pulse Ox 97.7 F 93 H 20 103/70 95 01/30/18 17:04 01/30/18 17:04 01/30/18 17:04 01/30/18 17:04 01/30/18 17:04 Intake and Output: 01/31/18 01/31/18 06:59 18:59 Intake Total 540 Output Total 0 Balance 540 - Medications Medications: Current Medications Amlodipine Besylate (Norvasc) 10 mg PO DAILY [facility] Last Admin: 01/30/18 10:11 Dose: 10 mg Aspirin (Ecotrin) 81 mg PO DAILY [facility] Last Admin: 01/30/18 10:10 Dose: 81 mg Atorvastatin Calcium (Lipitor) 20 mg PO DIN [facility] Last Admin: 01/30/18 18:11 Dose: 20 mg Citalopram Hydrobromide (Celexa) 10 mg PO DAILY [facility] Last Admin: 01/30/18 10:10 Dose: 10 mg Clotrimazole (Lotrimin Af 1%) 0 ml TOP BID [facility] Last Admin: 01/30/18 10:11 Dose: Not Given Enoxaparin Sodium (Lovenox) 40 mg SC DAILY [facility] PRN Reason: Protocol Last Admin: 01/30/18 10:11 Dose: 40 mg Folic Acid (Folic Acid) 1 mg PO DAILY [facility] Last Admin: 01/30/18 10:10 Dose: 1 mg Insulin Detemir (Levemir) 12 unit SC HS [facility] Last Admin: 01/30/18 22:07 Dose: 12 unit Insulin Human Lispro (Humalog Low) 0 units SC ACHS [facility] PRN Reason: Protocol Last Admin: 01/31/18 08:35 Dose: Not Given Insulin Human Regular (Humulin R) 3 units SC AC [facility] Last Admin: 01/31/18 08:35 Dose: Not Given Lisinopril (Zestril) 10 mg PO DAILY [facility] Last Admin: 01/30/18 10:12 Dose: 10 mg Multivitamins/Minerals (Therapeutic-M Tab) 1 tab PO 0800 [facility] Last Admin: 01/30/18 10:12 Dose: 1 tab Pantoprazole Sodium (Protonix Ec Tab) 40 mg PO 0600 [facility] Last Admin: 01/31/18 05:24 Dose: 40 mg Quetiapine Fumarate (Seroquel) 12.5 mg PO HS PRN; Protocol PRN Reason: Agitation Last Admin: 01/28/18 21:42 Dose: 12.5 mg Thiamine HCl (Vitamin B1 Tab) 100 mg PO DAILY [facility] Last Admin: 01/30/18 10:12 Dose: 100 mg Zinc Sulfate (Zinc Sulfate 220 Mg Cap) 220 mg PO DAILY [facility] Last Admin: 01/30/18 10:12 Dose: 220 mg - Labs Labs: 01/31/18 05:30 01/31/18 05:30 PT 12.5 SECONDS (9.4-12.5) 12/09/17 10:00 INR 1.09 (0.93-1.08) H 12/09/17 10:00 APTT 28.3 Seconds (25.1-36.5) 11/30/17 05:30 - Constitutional Appears: No Acute Distress - Head Exam Head Exam: ATRAUMATIC, NORMAL INSPECTION, NORMOCEPHALIC - Eye Exam Eye Exam: EOMI, PERRL - ENT Exam ENT Exam: Mucous Membranes Moist - Cardiovascular Exam Cardiovascular Exam: REGULAR RHYTHM, +S1, +S2 - GI/Abdominal Exam GI & Abdominal Exam: Soft, Normal Bowel Sounds. absent: Tenderness - Extremities Exam Extremities Exam: Normal Inspection. absent: Calf Tenderness, Pedal Edema - Neurological Exam Neurological Exam: Alert, Awake - Psychiatric Exam Psychiatric exam: Flat Affect, Normal Mood - Skin Skin Exam: Dry, Warm Assessment and Plan - Assessment and Plan (Free Text) Assessment: 57 year old male with unknown past medical history who was admitted for AMS, right hip cellulitis, multifocal pneumonia, influenza A, strep viridians bacteremia with findings of stroke on MRI - acute vs. 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 Patient was treated for bacteremia with IV abx. Patient currently is awaiting further medical evaluation in the form of TAHIR and colonoscopy. Patient continues to refuse testing at this time. Plan: FOBT positive - H/H stable at this time - No reports of bloody stool overnight - Will continue to monitor patient clinically, follow up H/H AMS - Delirium precautions - Patient mentation has approved based off chart review - Clinically unchanged - Likely secondary to depression vs. previous brain injury in form of metabolic encephalopathy vs residual stroke deficits Bacteremia with S. viridans/mitis and Coag negative Staph Bactermia - Last bld clx negative 12/04/17 with completion of 6 week course of antibiotics - Monitor WBC, ESR, CRP weekly - Clinically stable - Echocardiogram unable to rule out vegetations, family is unavailable for consent for TAHIR - Patient did complete 6 week course of antibiotics Colonic Neoplasm - CT Abd/Pelvis showing colonic mass and hepatic lesions - GI consulted and following patient - Flex sig/colonoscopy refused by patient at this time - Family unable to be contacted for consent Ischemic Stroke - acute vs. subacute - ASA 81 mg - Lipitor 20mg - PT recommendations for JOSIAH DM 2 - ACHS - Levemir 12 units HS - Continue ISS - Carb consistent diet HTN - Lisinopril 10mg Daily - Norvasc 10mg Daily Affective disorder - Celexa 10mg PO Daily - Seroquel HS - Clinically unchanged GI/DVT ppx - Protonix - SCDs Dispo: Patient lacks decision making capacity and is unable to comprehend his diagnosis, medical treatment, potential benefit and risk associated with and without treatment. Guardianship paperwork continues to be pending. Case and plan discussed with attending Yasmin Bowie PGY-1 <Deanna Schumacher - Last Filed: 01/31/18 16:28> Objective - Vital Signs/Intake and Output Vital Signs (last 24 hours): Temp Pulse Resp BP Pulse Ox 98.3 F 95 H 18 130/79 96 01/31/18 09:14 01/31/18 10:33 01/31/18 09:14 01/31/18 10:34 01/31/18 09:14 Intake and Output: 01/31/18 01/31/18 06:59 18:59 Intake Total 540 480 Output Total 0 Balance 540 480 - Medications Medications: Current Medications Amlodipine Besylate (Norvasc) 10 mg PO DAILY [facility] Aspirin (Ecotrin) 81 mg PO DAILY [facility] Atorvastatin Calcium (Lipitor) 20 mg PO DIN [facility] Citalopram Hydrobromide (Celexa) 10 mg PO DAILY [facility] Clotrimazole (Lotrimin Af 1%) 0 ml TOP BID [facility] Enoxaparin Sodium (Lovenox) 40 mg SC DAILY [facility] PRN Reason: Protocol Last Admin: 01/30/18 10:11 Dose: 40 mg Folic Acid (Folic Acid) 1 mg PO DAILY [facility] Insulin Detemir (Levemir) 12 unit SC HS [facility] Insulin Human Lispro (Humalog Low) 0 units SC ACHS [facility] PRN Reason: Protocol Last Admin: 01/31/18 12:09 Dose: 1 units Insulin Human Regular (Humulin R) 3 units SC AC [facility] Last Admin: 01/31/18 12:08 Dose: 3 units Lisinopril (Zestril) 10 mg PO DAILY [facility] Multivitamins/Minerals (Therapeutic-M Tab) 1 tab PO 0800 [facility] Pantoprazole Sodium (Protonix Ec Tab) 40 mg PO 0600 [facility] Quetiapine Fumarate (Seroquel) 12.5 mg PO HS PRN; Protocol PRN Reason: Agitation Thiamine HCl (Vitamin B1 Tab) 100 mg PO DAILY [facility] Zinc Sulfate (Zinc Sulfate 220 Mg Cap) 220 mg PO DAILY [facility] - Labs Labs: 01/31/18 05:30 01/31/18 05:30 PT 12.5 SECONDS (9.4-12.5) 12/09/17 10:00 INR 1.09 (0.93-1.08) H 12/09/17 10:00 APTT 28.3 Seconds (25.1-36.5) 11/30/17 05:30 Attending/Attestation - Attestation I have personally seen and examined this patient.: Yes I have fully participated in the care of the patient.: Yes I have reviewed all pertinent clinical information, including history, physical exam and plan: Yes Notes (Text): 01/31/18 16:28 Medical record note made by the resident after discussion with my direction and input after the patient was personally seen and examined by me. I have reviewed the chart and agree that the record accurately reflects by personal performance of the history, physical exam, data review, and medical decision-making, in the course for the patient. I have also personally directed the plan of care.
[2018-01-31] MEDS: Clotrimazole 1% Top Soln(10 ml) TOP SCH ×2 (10:37→17:15)
[2018-01-31] MEDS: Multivitamin With Minerals Tab PO SCH (10:56)
--- NOTE | 2018-01-31 17:57 | CP.PCM.PN ---
Subjective - Date & Time of Evaluation Date of Evaluation: 01/31/18 Time of Evaluation: 10:20 - Subjective Subjective: Comfortable, no fevers, not in distress. Objective - Vital Signs/Intake and Output Vital Signs (last 24 hours): Temp Pulse Resp BP Pulse Ox 97.7 F 93 H 20 103/70 95 01/30/18 17:04 01/30/18 17:04 01/30/18 17:04 01/30/18 17:04 01/30/18 17:04 Intake and Output: 01/31/18 01/31/18 06:59 18:59 Intake Total 540 Output Total 0 Balance 540 - Medications Medications: Current Medications Amlodipine Besylate (Norvasc) 10 mg PO DAILY [facility] Last Admin: 01/30/18 10:11 Dose: 10 mg Aspirin (Ecotrin) 81 mg PO DAILY [facility] Last Admin: 01/30/18 10:10 Dose: 81 mg Atorvastatin Calcium (Lipitor) 20 mg PO DIN [facility] Last Admin: 01/30/18 18:11 Dose: 20 mg Citalopram Hydrobromide (Celexa) 10 mg PO DAILY [facility] Last Admin: 01/30/18 10:10 Dose: 10 mg Clotrimazole (Lotrimin Af 1%) 0 ml TOP BID [facility] Last Admin: 01/30/18 10:11 Dose: Not Given Enoxaparin Sodium (Lovenox) 40 mg SC DAILY [facility] PRN Reason: Protocol Last Admin: 01/30/18 10:11 Dose: 40 mg Folic Acid (Folic Acid) 1 mg PO DAILY [facility] Last Admin: 01/30/18 10:10 Dose: 1 mg Insulin Detemir (Levemir) 12 unit SC HS [facility] Last Admin: 01/30/18 22:07 Dose: 12 unit Insulin Human Lispro (Humalog Low) 0 units SC ACHS [facility] PRN Reason: Protocol Last Admin: 01/31/18 08:35 Dose: Not Given Insulin Human Regular (Humulin R) 3 units SC AC [facility] Last Admin: 01/31/18 08:35 Dose: Not Given Lisinopril (Zestril) 10 mg PO DAILY [facility] Last Admin: 01/30/18 10:12 Dose: 10 mg Multivitamins/Minerals (Therapeutic-M Tab) 1 tab PO 0800 [facility] Last Admin: 01/30/18 10:12 Dose: 1 tab Pantoprazole Sodium (Protonix Ec Tab) 40 mg PO 0600 [facility] Last Admin: 01/31/18 05:24 Dose: 40 mg Quetiapine Fumarate (Seroquel) 12.5 mg PO HS PRN; Protocol PRN Reason: Agitation Last Admin: 01/28/18 21:42 Dose: 12.5 mg Thiamine HCl (Vitamin B1 Tab) 100 mg PO DAILY [facility] Last Admin: 01/30/18 10:12 Dose: 100 mg Zinc Sulfate (Zinc Sulfate 220 Mg Cap) 220 mg PO DAILY [facility] Last Admin: 01/30/18 10:12 Dose: 220 mg - Labs Labs: 01/31/18 05:30 01/31/18 05:30 PT 12.5 SECONDS (9.4-12.5) 12/09/17 10:00 INR 1.09 (0.93-1.08) H 12/09/17 10:00 APTT 28.3 Seconds (25.1-36.5) 11/30/17 05:30 - Constitutional Appears: Non-toxic, Chronically Ill - Head Exam Head Exam: NORMAL INSPECTION - Respiratory Exam Respiratory Exam: Decreased Breath Sounds - Cardiovascular Exam Cardiovascular Exam: +S1, +S2 - GI/Abdominal Exam GI & Abdominal Exam: Soft. absent: Tenderness Assessment and Plan - Assessment and Plan (Free Text) Plan: Assessment S/P sepsis due to strep viridans and CoNS bacteremia from right gluteal and back cellulitis S/P multifocal HCAP on top of Influenza A infection S/P Sammie infection of sacral area as well peripheral vascular disease Plan completed 42 days of antibiotics - continue to follow clinically off antibiotics since he is at risk for hospital-acquired infections
[2018-01-31] MEDS: Insulin Detemir 100 units/ml Vial (Levemir) SC SCH (22:05)
[2018-02-01] MEDS: Pantoprazole 40 mg EC Tab PO SCH (06:58)
[2018-02-01] MEDS: Insulin Regular 1 UNITS/0.01 ML ML SC SCH ×3 (08:53→18:31)
[2018-02-01] MEDS: Multivitamin With Minerals Tab PO SCH (08:54)
[2018-02-01] MEDS: Insulin Lispro (humaLOG) LOW Coverage SC SCH ×4 (08:54→21:34)
[2018-02-01] MEDS: Clotrimazole 1% Top Soln(10 ml) TOP SCH ×2 (11:53→18:33)
--- NOTE | 2018-02-01 17:16 | CP.PCM.PN ---
<Rocael Bowie - Last Filed: 02/01/18 17:13> Subjective - Date & Time of Evaluation Date of Evaluation: 02/01/18 Time of Evaluation: 09:15 - Subjective Subjective: Patient seen and examined this AM. No acute events reported overnight. Patient denies abdominal pain, chest pain, diarrhea. Patient has no complaints Objective - Vital Signs/Intake and Output Vital Signs (last 24 hours): Temp Pulse Resp BP Pulse Ox 97.7 F 86 19 132/76 97 02/01/18 08:18 02/01/18 10:00 02/01/18 08:18 02/01/18 10:00 02/01/18 08:18 Intake and Output: 02/01/18 02/01/18 06:59 18:59 Intake Total 960 600 Balance 960 600 - Medications Medications: Current Medications Amlodipine Besylate (Norvasc) 10 mg PO DAILY [facility] Last Admin: 02/01/18 10:00 Dose: 10 mg Aspirin (Ecotrin) 81 mg PO DAILY [facility] Last Admin: 02/01/18 10:00 Dose: 81 mg Atorvastatin Calcium (Lipitor) 20 mg PO DIN [facility] Last Admin: 01/31/18 17:14 Dose: 20 mg Citalopram Hydrobromide (Celexa) 10 mg PO DAILY [facility] Last Admin: 02/01/18 10:00 Dose: 10 mg Clotrimazole (Lotrimin Af 1%) 0 ml TOP BID [facility] Last Admin: 02/01/18 11:53 Dose: 1 applic Enoxaparin Sodium (Lovenox) 40 mg SC DAILY [facility] PRN Reason: Protocol Last Admin: 01/30/18 10:11 Dose: 40 mg Folic Acid (Folic Acid) 1 mg PO DAILY [facility] Last Admin: 02/01/18 10:02 Dose: 1 mg Insulin Detemir (Levemir) 12 unit SC HS [facility] Last Admin: 01/31/18 22:05 Dose: 12 unit Insulin Human Lispro (Humalog Low) 0 units SC ACHS [facility] PRN Reason: Protocol Last Admin: 02/01/18 11:50 Dose: 1 units Insulin Human Regular (Humulin R) 3 units SC AC [facility] Last Admin: 02/01/18 11:49 Dose: 3 units Lisinopril (Zestril) 10 mg PO DAILY [facility] Last Admin: 02/01/18 10:00 Dose: 10 mg Multivitamins/Minerals (Therapeutic-M Tab) 1 tab PO 0800 [facility] Last Admin: 02/01/18 08:54 Dose: 1 tab Pantoprazole Sodium (Protonix Ec Tab) 40 mg PO 0600 [facility] Last Admin: 02/01/18 06:58 Dose: 40 mg Quetiapine Fumarate (Seroquel) 12.5 mg PO HS PRN; Protocol PRN Reason: Agitation Thiamine HCl (Vitamin B1 Tab) 100 mg PO DAILY [facility] Last Admin: 02/01/18 10:00 Dose: 100 mg Zinc Sulfate (Zinc Sulfate 220 Mg Cap) 220 mg PO DAILY [facility] Last Admin: 02/01/18 09:59 Dose: 220 mg - Labs Labs: 01/31/18 05:30 01/31/18 05:30 PT 12.5 SECONDS (9.4-12.5) 12/09/17 10:00 INR 1.09 (0.93-1.08) H 12/09/17 10:00 APTT 28.3 Seconds (25.1-36.5) 11/30/17 05:30 - Constitutional Appears: Non-toxic - Head Exam Head Exam: ATRAUMATIC, NORMAL INSPECTION, NORMOCEPHALIC - Eye Exam Eye Exam: EOMI, PERRL - Neck Exam Neck Exam: Full ROM - Respiratory Exam Respiratory Exam: Clear to Ausculation Bilateral, NORMAL BREATHING PATTERN. absent: Rhonchi, Wheezes - Cardiovascular Exam Cardiovascular Exam: REGULAR RHYTHM, +S1, +S2 - GI/Abdominal Exam GI & Abdominal Exam: Soft, Normal Bowel Sounds. absent: Tenderness - Extremities Exam Extremities Exam: Normal Inspection. absent: Calf Tenderness - Neurological Exam Neurological Exam: Alert, Awake - Psychiatric Exam Psychiatric exam: Flat Affect, Normal Mood - Skin Skin Exam: Dry, Warm Assessment and Plan - Assessment and Plan (Free Text) Assessment: 57 year old male with unknown past medical history who was admitted for AMS, right hip cellulitis, multifocal pneumonia, influenza A, strep viridians bacteremia with findings of stroke on MRI - acute vs. 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 Patient was treated for bacteremia with IV abx. Patient currently is awaiting further medical evaluation in the form of TAHIR and colonoscopy. Patient continues to refuse testing at this time. Plan: AMS - Delirium precautions - Patient mentation has approved based off chart review - Clinically unchanged - Likely secondary to depression vs. previous brain injury in form of metabolic encephalopathy vs residual stroke deficits Bacteremia with S. viridans/mitis and Coag negative Staph Bactermia - Last bld clx negative 12/04/17 with completion of 6 week course of antibiotics - Monitor WBC, ESR, CRP weekly - Clinically stable - Echocardiogram unable to rule out vegetations, family is unavailable for consent for TAHIR - Patient did complete 6 week course of antibiotics Colonic Neoplasm - CT Abd/Pelvis showing colonic mass and hepatic lesions - GI consulted and following patient - Flex sig/colonoscopy refused by patient at this time - Family unable to be contacted for consent FOBT positive - H/H stable at this time - No reports of bloody stool overnight - Will continue to monitor patient clinically, follow up H/H Ischemic Stroke - acute vs. subacute - ASA 81 mg - Lipitor 20mg - PT recommendations for JOSIAH DM 2 - ACHS - Levemir 12 units HS - Continue ISS - Carb consistent diet HTN - Lisinopril 10mg Daily - Norvasc 10mg Daily Affective disorder - Celexa 10mg PO Daily - Seroquel HS - Clinically unchanged GI/DVT ppx - Protonix - SCDs Dispo: Patient lacks decision making capacity and is unable to comprehend his diagnosis, medical treatment, potential benefit and risk associated with and without treatment. Guardianship paperwork continues to be pending. Case and plan discussed with attending Yasmin Bowie PGY-1 <Deanna Schumacher - Last Filed: 02/01/18 17:21> Objective - Vital Signs/Intake and Output Vital Signs (last 24 hours): Temp Pulse Resp BP Pulse Ox 97.7 F 86 19 132/76 97 02/01/18 08:18 02/01/18 10:00 02/01/18 08:18 02/01/18 10:00 02/01/18 08:18 Intake and Output: 02/01/18 02/01/18 06:59 18:59 Intake Total 960 600 Balance 960 600 - Medications Medications: Current Medications Amlodipine Besylate (Norvasc) 10 mg PO DAILY [facility] Last Admin: 02/01/18 10:00 Dose: 10 mg Aspirin (Ecotrin) 81 mg PO DAILY [facility] Last Admin: 02/01/18 10:00 Dose: 81 mg Atorvastatin Calcium (Lipitor) 20 mg PO DIN [facility] Last Admin: 04/16/18 17:14 Dose: 20 mg Citalopram Hydrobromide (Celexa) 10 mg PO DAILY [facility] Last Admin: 02/01/18 10:00 Dose: 10 mg Clotrimazole (Lotrimin Af 1%) 0 ml TOP BID [facility] Last Admin: 02/01/18 11:53 Dose: 1 applic Enoxaparin Sodium (Lovenox) 40 mg SC DAILY [facility] PRN Reason: Protocol Last Admin: 01/30/18 10:11 Dose: 40 mg Folic Acid (Folic Acid) 1 mg PO DAILY [facility] Last Admin: 02/01/18 10:02 Dose: 1 mg Insulin Detemir (Levemir) 12 unit SC HS [facility] Last Admin: 01/31/18 22:05 Dose: 12 unit Insulin Human Lispro (Humalog Low) 0 units SC ACHS [facility] PRN Reason: Protocol Last Admin: 02/01/18 11:50 Dose: 1 units Insulin Human Regular (Humulin R) 3 units SC AC [facility] Last Admin: 02/01/18 11:49 Dose: 3 units Lisinopril (Zestril) 10 mg PO DAILY [facility] Last Admin: 02/01/18 10:00 Dose: 10 mg Multivitamins/Minerals (Therapeutic-M Tab) 1 tab PO 0800 [facility] Last Admin: 02/01/18 08:54 Dose: 1 tab Pantoprazole Sodium (Protonix Ec Tab) 40 mg PO 0600 [facility] Last Admin: 02/01/18 06:58 Dose: 40 mg Quetiapine Fumarate (Seroquel) 12.5 mg PO HS PRN; Protocol PRN Reason: Agitation Thiamine HCl (Vitamin B1 Tab) 100 mg PO DAILY [facility] Last Admin: 02/01/18 10:00 Dose: 100 mg Zinc Sulfate (Zinc Sulfate 220 Mg Cap) 220 mg PO DAILY [facility] Last Admin: 02/01/18 09:59 Dose: 220 mg - Labs Labs: 01/31/18 05:30 01/31/18 05:30 PT 12.5 SECONDS (9.4-12.5) 12/09/17 10:00 INR 1.09 (0.93-1.08) H 12/09/17 10:00 APTT 28.3 Seconds (25.1-36.5) 11/30/17 05:30 Attending/Attestation - Attestation I have personally seen and examined this patient.: Yes I have fully participated in the care of the patient.: Yes I have reviewed all pertinent clinical information, including history, physical exam and plan: Yes Notes (Text): 02/01/18 17:21 Medical record note made by the resident after discussion with my direction and input after the patient was personally seen and examined by me. I have reviewed the chart and agree that the record accurately reflects by personal performance of the history, physical exam, data review, and medical decision-making, in the course for the patient. I have also personally directed the plan of care
[2018-02-01] MEDS: Insulin Detemir 100 units/ml Vial (Levemir) SC SCH (21:34)
--- NOTE | 2018-02-02 00:47 | PN ---
DATE: 02/01/2018 SUBJECTIVE: The patient is in bed, in no acute distress, nontoxic, was see early this morning. PHYSICAL EXAMINATION: VITAL SIGNS: On exam, temperature is 98, blood pressure is 130/70, respiratory rate of 18. HEENT: Examination of HEENT is unremarkable. NECK: Supple. LUNGS: Have decreased breath sounds. HEART: Normal S1 and S2. ABDOMEN: Soft, nontender. LABORATORY DATA: Laboratory examination reveals a white count of 8.4, hemoglobin of 10, platelets of 353. Chemistries are noted and creatinine is 0.5. Review of orders reveals the patient to be off of antibiotics. ASSESSMENT AND PLAN: A 57-year-old male who was seen early this morning in 363, bed 1 with status post sepsis due to Streptococcus viridans and coag-negative Staphylococcus bacteremia from the right gluteal and back cellulitis with status post multifocal healthcare-associated pneumonia on top of influenza and completed 42 days of antibiotics. Currently off of antibiotics. We will follow with you. The patient is at risk for developing nosocomial infections. Daniel Torres MD
[2018-02-02] MEDS: Pantoprazole 40 mg EC Tab PO SCH (05:52)
[2018-02-02 06:18] LABS: HEMOGLOBIN 10.2 g/dL (14.0-18.0); MEAN CELL VOLUME 87.2 fl (80.0-105.0); MEAN CORPUSCULAR HGB CONC 33.2 g/dl (31.0-37.0); MEAN PLATELET VOLUME 9.1 fl (7.0-11.0); RBC 3.52 10^6/uL (3.5-6.1)
[2018-02-02 06:36] LABS: ALB/GLOB RATIO 1.2 (1.1-1.8); ALBUMIN 3.4 g/dL (3.0-4.8); ALT/SGPT 24 U/L (7-56); AST/SGOT 27 U/L (17-59); BLOOD UREA NITROGEN 15 mg/dL (7-21); CALCIUM 9.2 mg/dL (8.4-10.5); GFR NON-AFRICAN AMERICAN > 60
[2018-02-02] MEDS: Insulin Lispro (humaLOG) LOW Coverage SC SCH ×4 (08:13→21:18)
[2018-02-02] MEDS: Insulin Regular 1 UNITS/0.01 ML ML SC SCH ×3 (08:13→17:27)
[2018-02-02] MEDS: Multivitamin With Minerals Tab PO SCH (08:13)
[2018-02-02] MEDS: Clotrimazole 1% Top Soln(10 ml) TOP SCH ×2 (10:01→17:23)
--- NOTE | 2018-02-02 20:25 | CP.PCM.PN ---
<Rocael Bowie - Last Filed: 02/02/18 20:22> Subjective - Date & Time of Evaluation Date of Evaluation: 02/02/18 Time of Evaluation: 09:00 - Subjective Subjective: Patient seen and examined this AM. No acute events overnight. Patient denies any complaints. Clinically unchanged. Objective - Vital Signs/Intake and Output Vital Signs (last 24 hours): Temp Pulse Resp BP Pulse Ox 98.6 F 80 18 138/82 96 02/02/18 16:00 02/02/18 16:00 02/02/18 16:00 02/02/18 16:00 02/02/18 16:00 Intake and Output: 02/02/18 02/03/18 18:59 06:59 Intake Total 480 Balance 480 - Medications Medications: Current Medications Amlodipine Besylate (Norvasc) 10 mg PO DAILY [facility] Last Admin: 02/02/18 10:01 Dose: 10 mg Aspirin (Ecotrin) 81 mg PO DAILY [facility] Last Admin: 02/02/18 10:01 Dose: 81 mg Atorvastatin Calcium (Lipitor) 20 mg PO DIN [facility] Last Admin: 02/02/18 17:23 Dose: 20 mg Citalopram Hydrobromide (Celexa) 10 mg PO DAILY [facility] Last Admin: 02/02/18 10:01 Dose: 10 mg Clotrimazole (Lotrimin Af 1%) 0 ml TOP BID [facility] Last Admin: 02/02/18 17:23 Dose: 1 applic Enoxaparin Sodium (Lovenox) 40 mg SC DAILY [facility] PRN Reason: Protocol Last Admin: 01/30/18 10:11 Dose: 40 mg Folic Acid (Folic Acid) 1 mg PO DAILY [facility] Last Admin: 02/02/18 10:01 Dose: 1 mg Insulin Detemir (Levemir) 12 unit SC HS [facility] Last Admin: 02/01/18 21:34 Dose: 12 unit Insulin Human Lispro (Humalog Low) 0 units SC ACHS [facility] PRN Reason: Protocol Last Admin: 02/02/18 17:27 Dose: 1 units Insulin Human Regular (Humulin R) 3 units SC AC [facility] Last Admin: 02/02/18 17:27 Dose: 3 units Lisinopril (Zestril) 10 mg PO DAILY [facility] Last Admin: 02/02/18 10:01 Dose: 10 mg Multivitamins/Minerals (Therapeutic-M Tab) 1 tab PO 0800 [facility] Last Admin: 02/02/18 08:13 Dose: 1 tab Pantoprazole Sodium (Protonix Ec Tab) 40 mg PO 0600 [facility] Last Admin: 02/02/18 05:52 Dose: 40 mg Quetiapine Fumarate (Seroquel) 12.5 mg PO HS PRN; Protocol PRN Reason: Agitation Thiamine HCl (Vitamin B1 Tab) 100 mg PO DAILY [facility] Last Admin: 02/02/18 10:01 Dose: 100 mg Zinc Sulfate (Zinc Sulfate 220 Mg Cap) 220 mg PO DAILY [facility] Last Admin: 02/02/18 10:01 Dose: 220 mg - Labs Labs: 02/02/18 06:00 02/02/18 06:00 PT 12.5 SECONDS (9.4-12.5) 12/09/17 10:00 INR 1.09 (0.93-1.08) H 12/09/17 10:00 APTT 28.3 Seconds (25.1-36.5) 11/30/17 05:30 - Constitutional Appears: No Acute Distress - Head Exam Head Exam: ATRAUMATIC, NORMAL INSPECTION, NORMOCEPHALIC - Eye Exam Eye Exam: EOMI, PERRL - Respiratory Exam Respiratory Exam: Clear to Ausculation Bilateral, NORMAL BREATHING PATTERN - Cardiovascular Exam Cardiovascular Exam: REGULAR RHYTHM, +S1, +S2 - GI/Abdominal Exam GI & Abdominal Exam: Soft, Normal Bowel Sounds - Extremities Exam Extremities Exam: Normal Capillary Refill, Normal Inspection. absent: Pedal Edema - Neurological Exam Neurological Exam: Alert, Awake Additional comments: motor and sensory grossly intact - Psychiatric Exam Psychiatric exam: Normal Affect, Normal Mood - Skin Skin Exam: Dry, Warm Assessment and Plan - Assessment and Plan (Free Text) Assessment: 57 year old male with unknown past medical history who was admitted for AMS, right hip cellulitis, multifocal pneumonia, influenza A, strep viridians bacteremia with findings of stroke on MRI - acute vs. 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 Patient was treated for bacteremia with IV abx. Patient currently is awaiting further medical evaluation in the form of TAHIR and colonoscopy. Patient continues to refuse testing at this time. Plan: AMS - Delirium precautions - Patient mentation has approved based off chart review - Clinically unchanged - Likely secondary to depression vs. previous brain injury in form of metabolic encephalopathy vs residual stroke deficits Bacteremia with S. viridans/mitis and Coag negative Staph Bactermia - Last bld clx negative 12/04/17 with completion of 6 week course of antibiotics - Monitor WBC, ESR, CRP weekly - Clinically stable - Echocardiogram unable to rule out vegetations, family is unavailable for consent for TAHIR - Patient did complete 6 week course of antibiotics Colonic Neoplasm - CT Abd/Pelvis showing colonic mass and hepatic lesions - GI consulted and following patient - Flex sig/colonoscopy refused by patient at this time - Family unable to be contacted for consent FOBT positive - H/H stable at this time - No reports of bloody stool overnight - Will continue to monitor patient clinically, follow up H/H Ischemic Stroke - acute vs. subacute - ASA 81 mg - Lipitor 20mg - PT recommendations for JOSIAH DM 2 - ACHS - Levemir 12 units HS - Continue ISS - Carb consistent diet HTN - Lisinopril 10mg Daily - Norvasc 10mg Daily Affective disorder - Celexa 10mg PO Daily - Seroquel HS - Clinically unchanged GI/DVT ppx - Protonix - SCDs Dispo: Patient lacks decision making capacity and is unable to comprehend his diagnosis, medical treatment, potential benefit and risk associated with and without treatment. Guardianship paperwork continues to be pending. Case and plan discussed with attending Yasmin Bowie PGY-1 <Deanna Schumacher - Last Filed: 02/03/18 17:40> Objective - Vital Signs/Intake and Output Vital Signs (last 24 hours): Temp Pulse Resp BP Pulse Ox 97.9 F 70 20 123/73 98 02/03/18 16:00 02/03/18 16:00 02/03/18 16:00 02/03/18 16:00 02/03/18 16:00 Intake and Output: 02/03/18 02/03/18 06:59 18:59 Intake Total 960 600 Balance 960 600 - Medications Medications: Current Medications Amlodipine Besylate (Norvasc) 10 mg PO DAILY [facility] Last Admin: 02/03/18 09:43 Dose: 10 mg Aspirin (Ecotrin) 81 mg PO DAILY [facility] Last Admin: 02/03/18 09:52 Dose: 81 mg Atorvastatin Calcium (Lipitor) 20 mg PO DIN [facility] Last Admin: 02/03/18 17:09 Dose: 20 mg Citalopram Hydrobromide (Celexa) 10 mg PO DAILY [facility] Last Admin: 02/03/18 09:44 Dose: 10 mg Clotrimazole (Lotrimin Af 1%) 0 ml TOP BID [facility] Last Admin: 02/03/18 09:42 Dose: 1 applic Enoxaparin Sodium (Lovenox) 40 mg SC DAILY [facility] PRN Reason: Protocol Last Admin: 01/30/18 10:11 Dose: 40 mg Folic Acid (Folic Acid) 1 mg PO DAILY [facility] Last Admin: 02/03/18 09:44 Dose: 1 mg Insulin Detemir (Levemir) 15 unit SC HS [facility] Insulin Human Lispro (Humalog Low) 0 units SC ACHS [facility] PRN Reason: Protocol Last Admin: 02/03/18 17:10 Dose: 2 units Insulin Human Regular (Humulin R) 3 units SC AC [facility] Last Admin: 02/03/18 17:10 Dose: 3 units Lisinopril (Zestril) 10 mg PO DAILY [facility] Last Admin: 02/03/18 09:43 Dose: 10 mg Multivitamins/Minerals (Therapeutic-M Tab) 1 tab PO 0800 [facility] Last Admin: 02/03/18 07:53 Dose: 1 tab Pantoprazole Sodium (Protonix Ec Tab) 40 mg PO 0600 [facility] Last Admin: 02/03/18 05:45 Dose: 40 mg Quetiapine Fumarate (Seroquel) 12.5 mg PO HS PRN; Protocol PRN Reason: Agitation Thiamine HCl (Vitamin B1 Tab) 100 mg PO DAILY [facility] Last Admin: 02/03/18 09:43 Dose: 100 mg Zinc Sulfate (Zinc Sulfate 220 Mg Cap) 220 mg PO DAILY [facility] Last Admin: 02/03/18 09:44 Dose: 220 mg - Labs Labs: 02/02/18 06:00 02/02/18 06:00 PT 12.5 SECONDS (9.4-12.5) 12/09/17 10:00 INR 1.09 (0.93-1.08) H 12/09/17 10:00 APTT 28.3 Seconds (25.1-36.5) 11/30/17 05:30 Attending/Attestation - Attestation I have personally seen and examined this patient.: Yes I have fully participated in the care of the patient.: Yes I have reviewed all pertinent clinical information, including history, physical exam and plan: Yes Notes (Text): 02/03/18 17:39 Medical record note made by the resident after discussion with my direction and input after the patient was personally seen and examined by me. I have reviewed the chart and agree that the record accurately reflects by personal performance of the history, physical exam, data review, and medical decision-making, in the course for the patient. I have also personally directed the plan of care Patient is stable at his base line.He is awaiting guardianship paper work for placement
[2018-02-02] MEDS: Insulin Detemir 100 units/ml Vial (Levemir) SC SCH (21:58)
--- NOTE | 2018-02-03 01:57 | PN ---
DATE: 02/02/2018 SUBJECTIVE: The patient is seen earlier this morning, in no acute distress. PHYSICAL EXAMINATION: VITAL SIGNS: Temperature 98, blood pressure is 130/70, respiratory rate of 16. HEENT: Unremarkable. NECK: Supple. LUNGS: Have decreased breath sounds. HEART: Normal S1, S2. ABDOMEN: Soft, nontender. LABORATORY EXAMINATION: Reveals a white count of 8000, hemoglobin of 10, platelets of 329. Chemistries reveal a BUN of 15, creatinine of 0.5. Review of orders reveal the patient to be off of antibiotics. ASSESSMENT AND PLAN: This is a 57-year-old male who was seen early this morning, in room 363, bed 1 with status post sepsis with Streptococcus viridans and coagulase-negative staphylococcus bacteremia from the right gluteal and back cellulitis, status post multifocal healthcare-associated pneumonia on top of influenza and completed 42 days of antibiotics, currently off of antibiotics, afebrile and a white count of 8. The patient is at risk for developing nosocomial infections. Daniel Torres MD
[2018-02-03] MEDS: Pantoprazole 40 mg EC Tab PO SCH (05:45)
[2018-02-03] MEDS: Insulin Lispro (humaLOG) LOW Coverage SC SCH ×4 (07:53→21:46)
[2018-02-03] MEDS: Insulin Regular 1 UNITS/0.01 ML ML SC SCH ×3 (07:53→17:10)
[2018-02-03] MEDS: Multivitamin With Minerals Tab PO SCH (07:53)
[2018-02-03] MEDS: Clotrimazole 1% Top Soln(10 ml) TOP SCH ×2 (09:42→18:00)
--- NOTE | 2018-02-03 09:48 | CP.PCM.PN ---
<Rocael Bowie - Last Filed: 02/03/18 09:45> Subjective - Date & Time of Evaluation Date of Evaluation: 02/03/18 Time of Evaluation: 09:45 - Subjective Subjective: Patient seen and evaluated this AM. No acute events overnight. Patient clinically unchanged. Patient denies pain. Reports no contact from family. Objective - Vital Signs/Intake and Output Vital Signs (last 24 hours): Temp Pulse Resp BP Pulse Ox 98 F 89 18 118/80 97 02/03/18 08:25 02/03/18 08:25 02/03/18 08:25 02/03/18 08:25 02/03/18 08:25 Intake and Output: 02/03/18 02/03/18 06:59 18:59 Intake Total 960 120 Balance 960 120 - Medications Medications: Current Medications Amlodipine Besylate (Norvasc) 10 mg PO DAILY [facility] Last Admin: 02/02/18 10:01 Dose: 10 mg Aspirin (Ecotrin) 81 mg PO DAILY [facility] Last Admin: 02/02/18 10:01 Dose: 81 mg Atorvastatin Calcium (Lipitor) 20 mg PO DIN [facility] Last Admin: 02/02/18 17:23 Dose: 20 mg Citalopram Hydrobromide (Celexa) 10 mg PO DAILY [facility] Last Admin: 02/02/18 10:01 Dose: 10 mg Clotrimazole (Lotrimin Af 1%) 0 ml TOP BID [facility] Last Admin: 02/02/18 17:23 Dose: 1 applic Enoxaparin Sodium (Lovenox) 40 mg SC DAILY [facility] PRN Reason: Protocol Last Admin: 01/30/18 10:11 Dose: 40 mg Folic Acid (Folic Acid) 1 mg PO DAILY [facility] Last Admin: 02/02/18 10:01 Dose: 1 mg Insulin Detemir (Levemir) 12 unit SC HS [facility] Last Admin: 02/02/18 21:58 Dose: 12 unit Insulin Human Lispro (Humalog Low) 0 units SC ACHS [facility] PRN Reason: Protocol Last Admin: 02/03/18 07:53 Dose: Not Given Insulin Human Regular (Humulin R) 3 units SC AC [facility] Last Admin: 02/03/18 07:53 Dose: 3 units Lisinopril (Zestril) 10 mg PO DAILY [facility] Last Admin: 02/02/18 10:01 Dose: 10 mg Multivitamins/Minerals (Therapeutic-M Tab) 1 tab PO 0800 [facility] Last Admin: 02/03/18 07:53 Dose: 1 tab Pantoprazole Sodium (Protonix Ec Tab) 40 mg PO 0600 [facility] Last Admin: 02/03/18 05:45 Dose: 40 mg Quetiapine Fumarate (Seroquel) 12.5 mg PO HS PRN; Protocol PRN Reason: Agitation Thiamine HCl (Vitamin B1 Tab) 100 mg PO DAILY [facility] Last Admin: 02/02/18 10:01 Dose: 100 mg Zinc Sulfate (Zinc Sulfate 220 Mg Cap) 220 mg PO DAILY [facility] Last Admin: 02/02/18 10:01 Dose: 220 mg - Labs Labs: 02/02/18 06:00 02/02/18 06:00 PT 12.5 SECONDS (9.4-12.5) 12/09/17 10:00 INR 1.09 (0.93-1.08) H 12/09/17 10:00 APTT 28.3 Seconds (25.1-36.5) 11/30/17 05:30 - Constitutional Appears: No Acute Distress - Head Exam Head Exam: ATRAUMATIC, NORMAL INSPECTION, NORMOCEPHALIC - Eye Exam Eye Exam: EOMI, PERRL - ENT Exam ENT Exam: Mucous Membranes Moist - Respiratory Exam Respiratory Exam: Clear to Ausculation Bilateral, NORMAL BREATHING PATTERN. absent: Rhonchi, Wheezes - Cardiovascular Exam Cardiovascular Exam: REGULAR RHYTHM, +S1, +S2 - GI/Abdominal Exam GI & Abdominal Exam: Soft, Normal Bowel Sounds. absent: Tenderness - Extremities Exam Extremities Exam: Normal Inspection. absent: Pedal Edema Additional comments: DEE mckeon - Neurological Exam Neurological Exam: Alert, Awake - Psychiatric Exam Psychiatric exam: Flat Affect, Normal Mood - Skin Skin Exam: Dry, Warm Assessment and Plan - Assessment and Plan (Free Text) Assessment: 57 year old male with unknown past medical history who was admitted for AMS, right hip cellulitis, multifocal pneumonia, influenza A, strep viridians bacteremia with findings of stroke on MRI - acute vs. 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 Patient was treated for bacteremia with IV abx. Patient continues to refuse testing at this time. [facility] Plan: AMS - Delirium precautions - Patient mentation has approved based off chart review - Clinically unchanged - Likely secondary to depression vs. previous brain injury in form of metabolic encephalopathy vs residual stroke deficits Bacteremia with S. viridans/mitis and Coag negative Staph Bactermia - Last bld clx negative 12/04/17 with completion of 6 week course of antibiotics - Monitor WBC, ESR, CRP weekly - Clinically stable - Echocardiogram unable to rule out vegetations, family is unavailable for consent for TAHIR - Patient did complete 6 week course of antibiotics Colonic Neoplasm - CT Abd/Pelvis showing colonic mass and hepatic lesions - GI consulted and following patient - Flex sig/colonoscopy refused by patient at this time - Family unable to be contacted for consent FOBT positive - H/H stable at this time - No reports of bloody stool overnight - Will continue to monitor patient clinically, follow up H/H Ischemic Stroke - acute vs. subacute - ASA 81 mg - Lipitor 20mg - PT recommendations for JOSIAH DM 2 - ACHS - Levemir 15 units HS - Continue ISS - Carb consistent diet HTN - Lisinopril 10mg Daily - Norvasc 10mg Daily Affective disorder - Celexa 10mg PO Daily - Seroquel HS - Clinically unchanged GI/DVT ppx - Protonix - SCDs Dispo: Patient lacks decision making capacity and is unable to comprehend his diagnosis, medical treatment, potential benefit and risk associated with and without treatment. Guardianship paperwork continues to be pending. Case and plan discussed with attending Yasmin Bowie PGY-1 <Deanna Schumacher - Last Filed: 02/03/18 17:41> Objective - Vital Signs/Intake and Output Vital Signs (last 24 hours): Temp Pulse Resp BP Pulse Ox 97.9 F 70 20 123/73 98 02/03/18 16:00 02/03/18 16:00 02/03/18 16:00 02/03/18 16:00 02/03/18 16:00 Intake and Output: 02/03/18 02/03/18 06:59 18:59 Intake Total 960 600 Balance 960 600 - Medications Medications: Current Medications Amlodipine Besylate (Norvasc) 10 mg PO DAILY [facility] Last Admin: 02/03/18 09:43 Dose: 10 mg Aspirin (Ecotrin) 81 mg PO DAILY [facility] Last Admin: 02/03/18 09:52 Dose: 81 mg Atorvastatin Calcium (Lipitor) 20 mg PO DIN [facility] Last Admin: 02/03/18 17:09 Dose: 20 mg Citalopram Hydrobromide (Celexa) 10 mg PO DAILY [facility] Last Admin: 02/03/18 09:44 Dose: 10 mg Clotrimazole (Lotrimin Af 1%) 0 ml TOP BID [facility] Last Admin: 02/03/18 09:42 Dose: 1 applic Enoxaparin Sodium (Lovenox) 40 mg SC DAILY [facility] PRN Reason: Protocol Last Admin: 01/30/18 10:11 Dose: 40 mg Folic Acid (Folic Acid) 1 mg PO DAILY [facility] Last Admin: 02/03/18 09:44 Dose: 1 mg Insulin Detemir (Levemir) 15 unit SC HS [facility] Insulin Human Lispro (Humalog Low) 0 units SC ACHS [facility] PRN Reason: Protocol Last Admin: 02/03/18 17:10 Dose: 2 units Insulin Human Regular (Humulin R) 3 units SC AC [facility] Last Admin: 02/03/18 17:10 Dose: 3 units Lisinopril (Zestril) 10 mg PO DAILY [facility] Last Admin: 02/03/18 09:43 Dose: 10 mg Multivitamins/Minerals (Therapeutic-M Tab) 1 tab PO 0800 [facility] Last Admin: 02/03/18 07:53 Dose: 1 tab Pantoprazole Sodium (Protonix Ec Tab) 40 mg PO 0600 [facility] Last Admin: 02/03/18 05:45 Dose: 40 mg Quetiapine Fumarate (Seroquel) 12.5 mg PO HS PRN; Protocol PRN Reason: Agitation Thiamine HCl (Vitamin B1 Tab) 100 mg PO DAILY [facility] Last Admin: 02/03/18 09:43 Dose: 100 mg Zinc Sulfate (Zinc Sulfate 220 Mg Cap) 220 mg PO DAILY [facility] Last Admin: 02/03/18 09:44 Dose: 220 mg - Labs Labs: 02/02/18 06:00 02/02/18 06:00 PT 12.5 SECONDS (9.4-12.5) 12/09/17 10:00 INR 1.09 (0.93-1.08) H 12/09/17 10:00 APTT 28.3 Seconds (25.1-36.5) 11/30/17 05:30 Attending/Attestation - Attestation I have personally seen and examined this patient.: Yes I have fully participated in the care of the patient.: Yes I have reviewed all pertinent clinical information, including history, physical exam and plan: Yes Notes (Text): 02/03/18 17:40 Medical record note made by the resident after discussion with my direction and input after the patient was personally seen and examined by me. I have reviewed the chart and agree that the record accurately reflects by personal performance of the history, physical exam, data review, and medical decision-making, in the course for the patient. I have also personally directed the plan of care Patient is stable at his base line.He is awaiting guardianship paper work for placement
[2018-02-03] MEDS ORDERED: Insulin Detemir 100 units/ml Vial (Levemir) SC SCH (09:50)
--- NOTE | 2018-02-04 00:29 | PN ---
DATE: 02/03/2018 SUBJECTIVE: Patient was seen earlier this morning in room 363, bed 1. No fevers. No chills. No nausea or vomiting. No chest pain. PHYSICAL EXAMINATION: VITAL SIGNS: Temperature is 97, blood pressure is 120/70, respiratory rate of 20. HEENT: Unremarkable. NECK: Supple. LUNGS: Have decreased breath sounds. HEART: Normal S1, S2. ABDOMEN: Soft and nontender. LABORATORY DATA: Reveals a white count of 8000, hemoglobin of 10, and last creatinine 0.5 this morning. REVIEW OF ORDERS: Apparently, patient to be off of antibiotics. ASSESSMENT AND PLAN: A 57-year-old male who was seen earlier this morning status post sepsis with Streptococcus viridans and coagulase-negative staphylococcus bacteremia for right gluteal and back cellulitis plus multifocal healthcare-associated pneumonia and influenza, completed 42 days of antibiotics, currently off of antibiotics. Patient at risk for developing nosocomial infections. Daniel Torres MD
[2018-02-04] MEDS: Pantoprazole 40 mg EC Tab PO SCH (05:22)
[2018-02-04] MEDS: Multivitamin With Minerals Tab PO SCH (08:07)
[2018-02-04] MEDS: Insulin Regular 1 UNITS/0.01 ML ML SC SCH ×2 (08:07→12:33)
[2018-02-04] MEDS: Insulin Lispro (humaLOG) LOW Coverage SC SCH ×2 (08:08→12:34)
[2018-02-04] MEDS: Clotrimazole 1% Top Soln(10 ml) TOP SCH ×2 (09:44→17:34)
--- NOTE | 2018-02-04 12:55 | CP.PCM.PN ---
<Rocael Bowie - Last Filed: 02/04/18 12:51> Subjective - Date & Time of Evaluation Date of Evaluation: 02/04/18 Time of Evaluation: 12:52 - Subjective Subjective: Patient seen and examined this AM. No complaints overnight. No acute events overnight. [facility] paperwork discussed. Patient uninterested. Objective - Vital Signs/Intake and Output Vital Signs (last 24 hours): Temp Pulse Resp BP Pulse Ox 97.6 F 91 H 20 131/88 97 02/04/18 08:43 02/04/18 09:44 02/04/18 08:43 02/04/18 09:45 02/04/18 08:43 Intake and Output: 02/04/18 02/04/18 06:59 18:59 Intake Total 900 Output Total 4 Balance 896 - Medications Medications: Current Medications Amlodipine Besylate (Norvasc) 10 mg PO DAILY [facility] Last Admin: 02/04/18 09:45 Dose: 10 mg Aspirin (Ecotrin) 81 mg PO DAILY [facility] Last Admin: 02/04/18 09:45 Dose: 81 mg Atorvastatin Calcium (Lipitor) 20 mg PO DIN [facility] Last Admin: 02/03/18 17:09 Dose: 20 mg Citalopram Hydrobromide (Celexa) 10 mg PO DAILY [facility] Last Admin: 02/04/18 09:45 Dose: 10 mg Clotrimazole (Lotrimin Af 1%) 0 ml TOP BID [facility] Last Admin: 02/04/18 09:44 Dose: 1 applic Enoxaparin Sodium (Lovenox) 40 mg SC DAILY [facility] PRN Reason: Protocol Last Admin: 01/30/18 10:11 Dose: 40 mg Folic Acid (Folic Acid) 1 mg PO DAILY [facility] Last Admin: 02/04/18 09:44 Dose: 1 mg Insulin Detemir (Levemir) 15 unit SC HS [facility] Last Admin: 02/03/18 21:48 Dose: 15 unit Insulin Human Lispro (Humalog Low) 0 units SC [facility] PRN Reason: Protocol Last Admin: 02/04/18 12:34 Dose: 1 units Insulin Human Regular (Humulin R) 3 units SC AC [facility] Last Admin: 02/04/18 12:33 Dose: Not Given Insulin Human Regular (Humulin R Low) 0 units SC [facility] PRN Reason: Protocol Lisinopril (Zestril) 10 mg PO DAILY [facility] Last Admin: 02/04/18 09:44 Dose: 10 mg Metformin HCl (Glucophage) 500 mg PO BID [facility] Last Admin: 02/04/18 09:45 Dose: 500 mg Multivitamins/Minerals (Therapeutic-M Tab) 1 tab PO 0800 [facility] Last Admin: 02/04/18 08:07 Dose: 1 tab Pantoprazole Sodium (Protonix Ec Tab) 40 mg PO 0600 [facility] Last Admin: 02/04/18 05:22 Dose: 40 mg Quetiapine Fumarate (Seroquel) 12.5 mg PO HS PRN; Protocol PRN Reason: Agitation Thiamine HCl (Vitamin B1 Tab) 100 mg PO DAILY [facility] Last Admin: 02/04/18 09:45 Dose: 100 mg Zinc Sulfate (Zinc Sulfate 220 Mg Cap) 220 mg PO DAILY [facility] Last Admin: 02/04/18 09:45 Dose: 220 mg - Labs Labs: 02/02/18 06:00 02/02/18 06:00 PT 12.5 SECONDS (9.4-12.5) 12/09/17 10:00 INR 1.09 (0.93-1.08) H 12/09/17 10:00 APTT 28.3 Seconds (25.1-36.5) 11/30/17 05:30 - Constitutional Appears: No Acute Distress - Head Exam Head Exam: ATRAUMATIC, NORMAL INSPECTION, NORMOCEPHALIC - Eye Exam Eye Exam: EOMI, PERRL - ENT Exam ENT Exam: Mucous Membranes Moist - Respiratory Exam Respiratory Exam: Clear to Ausculation Bilateral, NORMAL BREATHING PATTERN. absent: Rhonchi, Wheezes - Cardiovascular Exam Cardiovascular Exam: REGULAR RHYTHM, +S1, +S2 - GI/Abdominal Exam GI & Abdominal Exam: Soft, Normal Bowel Sounds. absent: Firm, Guarding, Tenderness - Extremities Exam Extremities Exam: Normal Inspection. absent: Calf Tenderness, Pedal Edema - Neurological Exam Neurological Exam: Alert, Awake. absent: Motor Sensory Deficit - Psychiatric Exam Psychiatric exam: Flat Affect, Normal Mood - Skin Skin Exam: Dry, Warm Assessment and Plan - Assessment and Plan (Free Text) Assessment: 57 year old male with unknown past medical history who was admitted for AMS, right hip cellulitis, multifocal pneumonia, influenza A, strep viridians bacteremia with findings of stroke on MRI - acute vs. 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 Patient was treated for bacteremia with IV abx. Patient continues to refuse testing at this time. [facility]. Plan: : AMS - Delirium precautions - Patient mentation has approved based off chart review - Clinically unchanged - Likely secondary to depression vs. previous brain injury in form of metabolic encephalopathy vs residual stroke deficits Bacteremia with S. viridans/mitis and Coag negative Staph Bactermia - Last bld clx negative 12/04/17 with completion of 6 week course of antibiotics - Monitor WBC, ESR, CRP weekly - Clinically stable - Echocardiogram unable to rule out vegetations, family is unavailable for consent for TAHIR - Patient did complete 6 week course of antibiotics Colonic Neoplasm - CT Abd/Pelvis showing colonic mass and hepatic lesions - GI consulted and following patient - Flex sig/colonoscopy refused by patient at this time - Family unable to be contacted for consent FOBT positive - H/H stable at this time - No reports of bloody stool overnight - Will continue to monitor patient clinically, follow up H/H Ischemic Stroke - acute vs. subacute - ASA 81 mg - Lipitor 20mg - PT recommendations for JOSIAH DM 2 - HgA1c is 7.4 on recheck - Continue ISS low - Metformin 500mg BID - Carb consistent diet HTN - Lisinopril 10mg Daily - Norvasc 10mg Daily Affective disorder - Celexa 10mg PO Daily - Seroquel HS - Clinically unchanged GI/DVT ppx - Protonix - SCDs Dispo: Patient lacks decision making capacity and is unable to comprehend his diagnosis, medical treatment, potential benefit and risk associated with and without treatment. Guardianship paperwork being processed followed by potential placement. Case and plan discussed with attending Yasmin Bowie PGY-1 <Deanna Schumacher - Last Filed: 02/04/18 17:25> Objective - Vital Signs/Intake and Output Vital Signs (last 24 hours): Temp Pulse Resp BP Pulse Ox 97.6 F 91 H 20 131/88 97 02/04/18 08:43 02/04/18 09:44 02/04/18 08:43 02/04/18 09:45 02/04/18 08:43 Intake and Output: 02/04/18 02/04/18 06:59 18:59 Intake Total 900 Output Total 4 Balance 896 - Medications Medications: Current Medications Amlodipine Besylate (Norvasc) 10 mg PO DAILY [facility] Last Admin: 02/04/18 09:45 Dose: 10 mg Aspirin (Ecotrin) 81 mg PO DAILY [facility] Last Admin: 02/04/18 09:45 Dose: 81 mg Atorvastatin Calcium (Lipitor) 20 mg PO DIN [facility] Last Admin: 02/03/18 17:09 Dose: 20 mg Citalopram Hydrobromide (Celexa) 10 mg PO DAILY [facility] Last Admin: 02/04/18 09:45 Dose: 10 mg Clotrimazole (Lotrimin Af 1%) 0 ml TOP BID [facility] Last Admin: 02/04/18 09:44 Dose: 1 applic Enoxaparin Sodium (Lovenox) 40 mg SC DAILY [facility] PRN Reason: Protocol Last Admin: 01/30/18 10:11 Dose: 40 mg Folic Acid (Folic Acid) 1 mg PO DAILY [facility] Last Admin: 02/04/18 09:44 Dose: 1 mg Insulin Detemir (Levemir) 15 unit SC HS [facility] Last Admin: 02/03/18 21:48 Dose: 15 unit Insulin Human Regular (Humulin R) 3 units SC AC [facility] Last Admin: 02/04/18 12:33 Dose: Not Given Insulin Human Regular (Humulin R Low) 0 units SC ACHS [facility] PRN Reason: Protocol Lisinopril (Zestril) 10 mg PO DAILY [facility] Last Admin: 02/04/18 09:44 Dose: 10 mg Metformin HCl (Glucophage) 500 mg PO BID [facility] Last Admin: 02/04/18 09:45 Dose: 500 mg Multivitamins/Minerals (Therapeutic-M Tab) 1 tab PO 0800 [facility] Last Admin: 02/04/18 08:07 Dose: 1 tab Pantoprazole Sodium (Protonix Ec Tab) 40 mg PO 0600 [facility] Last Admin: 02/04/18 05:22 Dose: 40 mg Thiamine HCl (Vitamin B1 Tab) 100 mg PO DAILY [facility] Last Admin: 02/04/18 09:45 Dose: 100 mg Zinc Sulfate (Zinc Sulfate 220 Mg Cap) 220 mg PO DAILY [facility] Last Admin: 02/04/18 09:45 Dose: 220 mg - Labs Labs: 02/02/18 06:00 02/02/18 06:00 PT 12.5 SECONDS (9.4-12.5) 12/09/17 10:00 INR 1.09 (0.93-1.08) H 12/09/17 10:00 APTT 28.3 Seconds (25.1-36.5) 11/30/17 05:30 Attending/Attestation - Attestation I have personally seen and examined this patient.: Yes I have fully participated in the care of the patient.: Yes I have reviewed all pertinent clinical information, including history, physical exam and plan: Yes Notes (Text): 02/04/18 17:25 Medical record note made by the resident after discussion with my direction and input after the patient was personally seen and examined by me. I have reviewed the chart and agree that the record accurately reflects by personal performance of the history, physical exam, data review, and medical decision-making, in the course for the patient. I have also personally directed the plan of care.
--- NOTE | 2018-02-04 16:51 | PN ---
DATE: SUBJECTIVE: In short, the patient is 57-year-old male not known previous psychiatric history, possible history of alcohol use disorder. The patient was admitted on the medical side for evaluation of altered mental status. The patient was found in his apartment covered with feces. Initially, the patient's brother was in the emergency room, but brother disappeared and never been returning any calls or contacted the hospital. Going back to the patient's presentation, the patient is very poor historian. This junior copywriter was involved into the patient's care for evaluation of capacity to make decision about his treatment plan and disposition plan. The patient lacks capacity, but then medical team found multiple medical issues for this patient including right hip cellulitis, multifactorial pneumonia, influenza A, Streptococcus viridans, bacteremia. MRI showed stroke, acute versus subacute, also metastatic cancer. The patient also has diabetes, hypertension, stage II; sacral decubiti; hypokalemia. Please see medical team notes for more detailed information. Medical team asked her to evaluate the patient's mental status today. The patient was seen and examined. There are no changes for the patient's presentation. The patient is very poor and unreliable historian. Majority of the answers were yes, no and I do not know. The patient knows that he is in the hospital, but does not know what hospital he is in. The patient does not know the date, does not know the circumstances of his admission. The patient also has some psychomotor retardation. Collaterals from the nursing staff. The patient does not make much sense. No meaningful conversation possible as well as no abstractive thinking. The patient does not know medical diagnosis, treatment, risk, benefits and alternatives of the medications as well as treatment options. The patient denied being depressed. Denied history of mental illness. The patient denied any psychotic symptoms. Denied hearing voices, denied seeing things. The patient reported to have good appetite and sleep. No behavioral disturbances. The patient does not have insight. Does not have basic understanding about the diagnosis as well as prognosis. The patient does not have reasoning ability. He was not able to indicate preferences and obviously, the patient lacks capacity to participate in treatment plan and disposition plan. Due to all above information, the patient seems to have lacked capacity to care for himself and the patient is vulnerable in the community because the patient is confused, has memory problems and the patient does not have basic understanding such as the date, where he is, also episodes of confusion. PHYSICAL EXAMINATION: VITAL SIGNS: This junior copywriter reviewed vital signs, seems to be stable. Temperature 97.6, pulse is 91, blood pressure 131/88, respiration 20, oxygen saturations 97. MEDICATIONS: Reviewed. The patient is on Norvasc, aspirin, Lipitor, Celexa 10 mg daily, Lotrimin, Lovenox, folic acid, insulin, lisinopril, metformin, multivitamins, Protonix, Seroquel as needed, but the patient did not require that. MENTAL STATUS EXAMINATION: As this junior copywriter described above, the patient appears to be alert, but oriented to only himself. The patient has intermittent eye contact. Speech was under productive. He has no answers. Mood described as okay. Affect was flat. Thought process concrete. Thought content, the patient denied visual, auditory, or tactile hallucinations. Denied paranoid ideation. The patient denied thoughts of harming himself and others. The patient does not present to be psychotic. Does not have any behavioral issues and not agitated. Insight and judgment seems to be severely impaired. Impulses are well controlled. 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 The patient has multiple medical issues including multifactorial pneumonia, right hip cellulitis, acute versus subacute stroke, metastatic colorectal cancer, bacteremia, which resolved. PLAN: Based on the present presentation, the patient obviously lacks capacity to make decision about his treatment as well as disposition plan. The patient was not able to understand diagnosis, treatment, potential benefits and risk as well as consequences to be with and without treatment. The patient does not have insight and appreciation. Does not have any reasoning ability. The patient was not able to indicate his preferences. As of now, the patient lacks capacity to make decision for himself. This junior copywriter will sign off. Should you have any questions, give me a call back. Thank you very much for letting me participate in care of your patient. Mary Swartz MD
[2018-02-04] MEDS: Insulin Reg-LOW-Coverage SC SCH ×2 (17:31→21:28)
--- NOTE | 2018-02-04 19:30 | CP.PCM.PN ---
Subjective - Date & Time of Evaluation Date of Evaluation: 02/04/18 Time of Evaluation: 11:05 - Subjective Subjective: No fevers, not in distress. Objective - Vital Signs/Intake and Output Vital Signs (last 24 hours): Temp Pulse Resp BP Pulse Ox 97.6 F 91 H 20 131/88 97 02/04/18 08:43 02/04/18 08:43 02/04/18 08:43 02/04/18 08:43 02/04/18 08:43 Intake and Output: 02/04/18 02/04/18 06:59 18:59 Intake Total 900 Output Total 4 Balance 896 - Medications Medications: Current Medications Amlodipine Besylate (Norvasc) 10 mg PO DAILY [facility] Last Admin: 02/03/18 09:43 Dose: 10 mg Aspirin (Ecotrin) 81 mg PO DAILY [facility] Last Admin: 02/03/18 09:52 Dose: 81 mg Atorvastatin Calcium (Lipitor) 20 mg PO DIN [facility] Last Admin: 02/03/18 17:09 Dose: 20 mg Citalopram Hydrobromide (Celexa) 10 mg PO DAILY [facility] Last Admin: 02/03/18 09:44 Dose: 10 mg Clotrimazole (Lotrimin Af 1%) 0 ml TOP BID [facility] Last Admin: 02/03/18 18:00 Dose: 1 applic Enoxaparin Sodium (Lovenox) 40 mg SC DAILY [facility] PRN Reason: Protocol Last Admin: 01/30/18 10:11 Dose: 40 mg Folic Acid (Folic Acid) 1 mg PO DAILY [facility] Last Admin: 02/03/18 09:44 Dose: 1 mg Insulin Detemir (Levemir) 15 unit SC HS [facility] Last Admin: 02/03/18 21:48 Dose: 15 unit Insulin Human Lispro (Humalog Low) 0 units SC ACHS [facility] PRN Reason: Protocol Last Admin: 02/04/18 08:08 Dose: Not Given Insulin Human Regular (Humulin R) 3 units SC AC [facility] Last Admin: 02/04/18 08:07 Dose: 3 units Lisinopril (Zestril) 10 mg PO DAILY [facility] Last Admin: 02/03/18 09:43 Dose: 10 mg Metformin HCl (Glucophage) 500 mg PO BID [facility] Multivitamins/Minerals (Therapeutic-M Tab) 1 tab PO 0800 [facility] Last Admin: 02/04/18 08:07 Dose: 1 tab Pantoprazole Sodium (Protonix Ec Tab) 40 mg PO 0600 [facility] Last Admin: 02/04/18 05:22 Dose: 40 mg Quetiapine Fumarate (Seroquel) 12.5 mg PO HS PRN; Protocol PRN Reason: Agitation Thiamine HCl (Vitamin B1 Tab) 100 mg PO DAILY [facility] Last Admin: 02/03/18 09:43 Dose: 100 mg Zinc Sulfate (Zinc Sulfate 220 Mg Cap) 220 mg PO DAILY [facility] Last Admin: 02/03/18 09:44 Dose: 220 mg - Labs Labs: 02/02/18 06:00 02/02/18 06:00 PT 12.5 SECONDS (9.4-12.5) 12/09/17 10:00 INR 1.09 (0.93-1.08) H 12/09/17 10:00 APTT 28.3 Seconds (25.1-36.5) 11/30/17 05:30 - Constitutional Appears: Non-toxic, Chronically Ill - Head Exam Head Exam: NORMAL INSPECTION - Respiratory Exam Respiratory Exam: Decreased Breath Sounds - Cardiovascular Exam Cardiovascular Exam: +S1, +S2 - GI/Abdominal Exam GI & Abdominal Exam: Soft. absent: Tenderness Assessment and Plan - Assessment and Plan (Free Text) Plan: Assessment S/P sepsis due to strep viridans and CoNS bacteremia from right gluteal and back cellulitis S/P multifocal HCAP on top of Influenza A infection S/P Sammie infection of sacral area as well peripheral vascular disease Plan completed 42 days of antibiotics - continue to follow clinically off antibiotics since he is at risk for healthcare-associated infections
[2018-02-05] MEDS: Pantoprazole 40 mg EC Tab PO SCH (05:32)
--- NOTE | 2018-02-05 07:25 | CP.PCM.PN ---
<Rocael Bowie - Last Filed: 02/05/18 10:49> Subjective - Date & Time of Evaluation Date of Evaluation: 02/05/18 Time of Evaluation: 07:23 - Subjective Subjective: Internal Medicine Progress Note: Patient seen and examined this AM. No acute events overnight. Patient encouraged to get out of bed to chair. Patient reporting he does not wish to get out of bed. Denies chest pain, shortness of breath, nausea, vomiting, fever , chills. Objective - Vital Signs/Intake and Output Vital Signs (last 24 hours): Temp Pulse Resp BP Pulse Ox 98.2 F 101 H 20 110/76 96 02/04/18 16:00 02/04/18 16:00 02/04/18 16:00 02/04/18 16:00 02/04/18 16:00 Intake and Output: 02/05/18 02/05/18 06:59 18:59 Intake Total 960 Balance 960 - Medications Medications: Current Medications Amlodipine Besylate (Norvasc) 10 mg PO DAILY [facility] Last Admin: 02/04/18 09:45 Dose: 10 mg Aspirin (Ecotrin) 81 mg PO DAILY [facility] Last Admin: 02/04/18 09:45 Dose: 81 mg Atorvastatin Calcium (Lipitor) 20 mg PO DIN [facility] Last Admin: 02/04/18 17:33 Dose: 20 mg Citalopram Hydrobromide (Celexa) 10 mg PO DAILY [facility] Last Admin: 02/04/18 09:45 Dose: 10 mg Clotrimazole (Lotrimin Af 1%) 0 ml TOP BID [facility] Last Admin: 02/04/18 17:34 Dose: 1 applic Enoxaparin Sodium (Lovenox) 40 mg SC DAILY [facility] PRN Reason: Protocol Last Admin: 01/30/18 10:11 Dose: 40 mg Folic Acid (Folic Acid) 1 mg PO DAILY [facility] Last Admin: 02/04/18 09:44 Dose: 1 mg Insulin Detemir (Levemir) 15 unit SC HS [facility] Last Admin: 02/03/18 21:48 Dose: 15 unit Insulin Human Regular (Humulin R) 3 units SC AC [facility] Last Admin: 02/04/18 12:33 Dose: Not Given Insulin Human Regular (Humulin R Low) 0 units SC ACHS [facility] PRN Reason: Protocol Last Admin: 02/04/18 21:28 Dose: Not Given Lisinopril (Zestril) 10 mg PO DAILY [facility] Last Admin: 02/04/18 09:44 Dose: 10 mg Metformin HCl (Glucophage) 500 mg PO BID [facility] Last Admin: 02/04/18 17:33 Dose: 500 mg Multivitamins/Minerals (Therapeutic-M Tab) 1 tab PO 0800 [facility] Last Admin: 02/04/18 08:07 Dose: 1 tab Pantoprazole Sodium (Protonix Ec Tab) 40 mg PO 0600 [facility] Last Admin: 02/05/18 05:32 Dose: 40 mg Thiamine HCl (Vitamin B1 Tab) 100 mg PO DAILY [facility] Last Admin: 02/04/18 09:45 Dose: 100 mg Zinc Sulfate (Zinc Sulfate 220 Mg Cap) 220 mg PO DAILY [facility] Last Admin: 02/04/18 09:45 Dose: 220 mg - Labs Labs: 02/02/18 06:00 02/02/18 06:00 PT 12.5 SECONDS (9.4-12.5) 12/09/17 10:00 INR 1.09 (0.93-1.08) H 12/09/17 10:00 APTT 28.3 Seconds (25.1-36.5) 11/30/17 05:30 - Constitutional Appears: No Acute Distress - Head Exam Head Exam: ATRAUMATIC, NORMAL INSPECTION, NORMOCEPHALIC - Eye Exam Eye Exam: EOMI, PERRL - ENT Exam ENT Exam: Mucous Membranes Moist - Respiratory Exam Respiratory Exam: Clear to Ausculation Bilateral, NORMAL BREATHING PATTERN. absent: Rhonchi, Wheezes - Cardiovascular Exam Cardiovascular Exam: REGULAR RHYTHM, +S1, +S2 - GI/Abdominal Exam GI & Abdominal Exam: Soft, Normal Bowel Sounds - Extremities Exam Extremities Exam: Normal Inspection. absent: Calf Tenderness, Pedal Edema Additional comments: josh hose in place - Neurological Exam Neurological Exam: Alert, Awake, Oriented x3 - Psychiatric Exam Psychiatric exam: Flat Affect - Skin Skin Exam: Dry, Warm Assessment and Plan - Assessment and Plan (Free Text) Assessment: 57 year old male with unknown past medical history who was admitted for AMS, right hip cellulitis, multifocal pneumonia, influenza A, strep viridians bacteremia with findings of stroke on MRI - acute vs. 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 Patient was treated for bacteremia with IV abx. Patient continues to refuse testing at this time. [facility] establishment pending. Plan: AMS - Delirium precautions - Patient mentation has approved based off chart review and daily interviews - Clinically unchanged - Likely secondary to depression vs. previous brain injury in form of metabolic encephalopathy vs residual stroke deficits Stage I decubitus skin break down - Patient refuses to get out of bed to chair - Refusing activity with PT - Skin break down noticed on lateral posterior lower back/hip - Continue with Q2 turns Bacteremia with S. viridans/mitis and Coag negative Staph Bactermia - Last bld clx negative 12/04/17 with completion of 6 week course of antibiotics - Monitor WBC, ESR, CRP weekly - Echocardiogram unable to rule out vegetations, family is unavailable for consent for TAHIR - Patient did complete 6 week course of antibiotics Colonic Neoplasm - CT Abd/Pelvis showing colonic mass and hepatic lesions - GI consulted and following patient - Flex sig/colonoscopy refused by patient at this time - Family unable to be contacted for consent Ischemic Stroke - acute vs. subacute - ASA 81 mg - Lipitor 20mg - PT recommendations for JOSIAH DM 2 - HgA1c is 7.4 - Continue ISS low - Metformin 500mg BID - Carb consistent diet HTN - Lisinopril 10mg Daily - Norvasc 10mg Daily Affective disorder - Celexa 10mg PO Daily - Seroquel HS - Clinically unchanged GI/DVT ppx - Protonix - SCDs Dispo: Patient lacks decision making capacity and is unable to comprehend his diagnosis, medical treatment, potential benefit and risk associated with and without treatment. Guardianship paperwork being processed followed by potential placement. Case and plan discussed with attending Yasmin Bowie PGY-1 <Deanna Schumacher - Last Filed: 02/05/18 11:10> Objective - Vital Signs/Intake and Output Vital Signs (last 24 hours): Temp Pulse Resp BP Pulse Ox 97.7 F 100 H 19 122/72 94 L 02/05/18 07:40 02/05/18 09:51 02/05/18 07:40 02/05/18 09:51 02/05/18 07:40 Intake and Output: 02/05/18 02/05/18 06:59 18:59 Intake Total 960 Balance 960 - Medications Medications: Current Medications Amlodipine Besylate (Norvasc) 10 mg PO DAILY [facility] Last Admin: 02/05/18 09:50 Dose: 10 mg Aspirin (Ecotrin) 81 mg PO DAILY [facility] Last Admin: 02/05/18 09:51 Dose: 81 mg Atorvastatin Calcium (Lipitor) 20 mg PO DIN [facility] Last Admin: 02/04/18 17:33 Dose: 20 mg Citalopram Hydrobromide (Celexa) 10 mg PO DAILY [facility] Last Admin: 02/05/18 09:51 Dose: 10 mg Clotrimazole (Lotrimin Af 1%) 0 ml TOP BID [facility] Last Admin: 02/05/18 09:50 Dose: 1 applic Enoxaparin Sodium (Lovenox) 40 mg SC DAILY [facility] PRN Reason: Protocol Last Admin: 01/30/18 10:11 Dose: 40 mg Folic Acid (Folic Acid) 1 mg PO DAILY [facility] Last Admin: 02/05/18 09:50 Dose: 1 mg Insulin Detemir (Levemir) 15 unit SC HS [facility] Last Admin: 02/03/18 21:48 Dose: 15 unit Insulin Human Regular (Humulin R) 3 units SC AC [facility] Last Admin: 02/04/18 12:33 Dose: Not Given Insulin Human Regular (Humulin R Low) 0 units SC ACHS [facility] PRN Reason: Protocol Last Admin: 02/05/18 08:37 Dose: 1 units Lisinopril (Zestril) 10 mg PO DAILY [facility] Last Admin: 02/05/18 09:51 Dose: 10 mg Metformin HCl (Glucophage) 500 mg PO BID [facility] Last Admin: 02/05/18 09:51 Dose: 500 mg Multivitamins/Minerals (Therapeutic-M Tab) 1 tab PO 0800 [facility] Last Admin: 02/05/18 08:37 Dose: 1 tab Pantoprazole Sodium (Protonix Ec Tab) 40 mg PO 0600 [facility] Last Admin: 02/05/18 05:32 Dose: 40 mg Thiamine HCl (Vitamin B1 Tab) 100 mg PO DAILY [facility] Last Admin: 02/05/18 09:50 Dose: 100 mg Zinc Sulfate (Zinc Sulfate 220 Mg Cap) 220 mg PO DAILY [facility] Last Admin: 02/05/18 09:50 Dose: 220 mg - Labs Labs: 02/02/18 06:00 02/02/18 06:00 PT 12.5 SECONDS (9.4-12.5) 12/09/17 10:00 INR 1.09 (0.93-1.08) H 12/09/17 10:00 APTT 28.3 Seconds (25.1-36.5) 11/30/17 05:30 Attending/Attestation - Attestation I have personally seen and examined this patient.: Yes I have fully participated in the care of the patient.: Yes I have reviewed all pertinent clinical information, including history, physical exam and plan: Yes Notes (Text): 02/05/18 11:08 Medical record note made by the resident after discussion with my direction and input after the patient was personally seen and examined by me. I have reviewed the chart and agree that the record accurately reflects by personal performance of the history, physical exam, data review, and medical decision-making, in the course for the patient. I have also personally directed the plan of care. Patient is stable at base line, [facility] is [facility].He need to be encouraged to ambulate and also need frequent change of position to avoid decubitus ulcer. Prognosis is guarded.
[2018-02-05] MEDS: Multivitamin With Minerals Tab PO SCH (08:37)
[2018-02-05] MEDS: Insulin Reg-LOW-Coverage SC SCH ×4 (08:37→22:33)
[2018-02-05] MEDS: Clotrimazole 1% Top Soln(10 ml) TOP SCH ×2 (09:50→17:19)
--- NOTE | 2018-02-05 22:58 | PN ---
DATE: 02/05/2018 SUBJECTIVE: The patient is in bed, in no acute distress. PHYSICAL EXAMINATION: VITAL SIGNS: Temperature is 97, blood pressure is 120/70, respiratory rate of 16. HEENT: Unremarkable. NECK: Supple. LUNGS: Have decreased breath sounds. HEART: Normal S1, S2. ABDOMEN: Soft, nontender. LABORATORY DATA: Reveals a white count of 8000. Chemistries reveals a creatinine of 0.5. Positive influenza. ASSESSMENT AND PLAN: A 57-year-old male status post sepsis due to Streptococcus viridans and coag-negative bacteremia with a right gluteal and back cellulitis, has completed 42 days of antibiotics. Currently, off of antibiotics, afebrile. The patient is at risk for developing nosocomial infections. Daniel Torres MD
[2018-02-06] MEDS: Pantoprazole 40 mg EC Tab PO SCH (05:11)
[2018-02-06] MEDS: Insulin Reg-LOW-Coverage SC SCH ×3 (07:55→17:39)
[2018-02-06] MEDS: Multivitamin With Minerals Tab PO SCH (08:29)
[2018-02-06] MEDS: Clotrimazole 1% Top Soln(10 ml) TOP SCH ×2 (09:29→17:55)
--- NOTE | 2018-02-06 12:57 | CP.PCM.PN ---
<Rocael Bowie - Last Filed: 02/06/18 12:53> Subjective - Date & Time of Evaluation Date of Evaluation: 02/06/18 Time of Evaluation: 12:54 - Subjective Subjective: Patient seen and examined this AM. No changes clinically. Patient denies chest pain, shortness of breath, abdominal pain. Objective - Vital Signs/Intake and Output Vital Signs (last 24 hours): Temp Pulse Resp BP Pulse Ox 98 F 100 H 19 118/79 96 02/06/18 08:04 02/06/18 09:29 02/06/18 08:04 02/06/18 09:29 02/06/18 08:04 Intake and Output: 02/06/18 02/06/18 06:59 18:59 Intake Total 960 Balance 960 - Medications Medications: Current Medications Amlodipine Besylate (Norvasc) 10 mg PO DAILY [facility] Last Admin: 02/06/18 09:29 Dose: 10 mg Aspirin (Ecotrin) 81 mg PO DAILY [facility] Last Admin: 02/06/18 09:29 Dose: 81 mg Atorvastatin Calcium (Lipitor) 20 mg PO DIN [facility] Last Admin: 02/05/18 17:18 Dose: 20 mg Citalopram Hydrobromide (Celexa) 10 mg PO DAILY [facility] Last Admin: 02/06/18 09:29 Dose: 10 mg Clotrimazole (Lotrimin Af 1%) 0 ml TOP BID [facility] Last Admin: 02/06/18 09:29 Dose: 1 applic Enoxaparin Sodium (Lovenox) 40 mg SC DAILY [facility] PRN Reason: Protocol Last Admin: 01/30/18 10:11 Dose: 40 mg Folic Acid (Folic Acid) 1 mg PO DAILY [facility] Last Admin: 02/06/18 09:29 Dose: 1 mg Insulin Detemir (Levemir) 15 unit SC HS [facility] Last Admin: 02/03/18 21:48 Dose: 15 unit Insulin Human Regular (Humulin R) 3 units SC AC [facility] Last Admin: 02/04/18 12:33 Dose: Not Given Insulin Human Regular (Humulin R Low) 0 units SC ACHS [facility] PRN Reason: Protocol Last Admin: 02/06/18 11:35 Dose: Not Given Lisinopril (Zestril) 10 mg PO DAILY [facility] Last Admin: 04/22/18 09:29 Dose: 10 mg Metformin HCl (Glucophage) 500 mg PO BID [facility] Last Admin: 02/06/18 09:29 Dose: 500 mg Multivitamins/Minerals (Therapeutic-M Tab) 1 tab PO 0800 [facility] Last Admin: 02/06/18 08:29 Dose: 1 tab Pantoprazole Sodium (Protonix Ec Tab) 40 mg PO 0600 [facility] Last Admin: 02/06/18 05:11 Dose: 40 mg Thiamine HCl (Vitamin B1 Tab) 100 mg PO DAILY [facility] Last Admin: 02/06/18 09:29 Dose: 100 mg Zinc Sulfate (Zinc Sulfate 220 Mg Cap) 220 mg PO DAILY [facility] Last Admin: 02/06/18 09:29 Dose: 220 mg - Labs Labs: 02/02/18 06:00 02/02/18 06:00 PT 12.5 SECONDS (9.4-12.5) 12/09/17 10:00 INR 1.09 (0.93-1.08) H 12/09/17 10:00 APTT 28.3 Seconds (25.1-36.5) 11/30/17 05:30 - Head Exam Head Exam: ATRAUMATIC, NORMAL INSPECTION, NORMOCEPHALIC - Eye Exam Eye Exam: EOMI, PERRL - ENT Exam ENT Exam: Mucous Membranes Moist - Neck Exam Neck Exam: Full ROM - Respiratory Exam Respiratory Exam: Clear to Ausculation Bilateral, NORMAL BREATHING PATTERN. absent: Rales, Rhonchi - Cardiovascular Exam Cardiovascular Exam: REGULAR RHYTHM, +S1, +S2 - GI/Abdominal Exam GI & Abdominal Exam: Soft, Normal Bowel Sounds - Extremities Exam Extremities Exam: Normal Inspection. absent: Calf Tenderness - Back Exam Back Exam: absent: paraspinal tenderness - Neurological Exam Neurological Exam: Alert, Awake Additional comments: motor and sensory grossly intact - Psychiatric Exam Psychiatric exam: Flat Affect - Skin Skin Exam: Dry, Warm Additional comments: stage I decubitus ulcer/breakdown appreciated on lower flanks and posterior sacrum Assessment and Plan - Assessment and Plan (Free Text) Assessment: 57 year old male with unknown past medical history who was admitted for AMS, right hip cellulitis, multifocal pneumonia, influenza A, strep viridians bacteremia with findings of stroke on MRI - acute vs. 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 Patient was treated for bacteremia with IV abx. Patient continues to refuse testing at this time. [facility] establishment pending. Plan: AMS - Delirium precautions - Patient mentation has approved based off chart review and daily interviews - Clinically unchanged - Likely secondary to depression vs. previous brain injury in form of metabolic encephalopathy vs residual stroke deficits Stage I decubitus skin break down - Patient refuses to get out of bed to chair - Refusing activity with PT - Skin break down noticed on lateral posterior lower back/hip - Continue with Q2 turns Bacteremia with S. viridans/mitis and Coag negative Staph Bactermia - Last bld clx negative 12/04/17 with completion of 6 week course of antibiotics - Monitor WBC, ESR, CRP weekly - Echocardiogram unable to rule out vegetations, family is unavailable for consent for TAHIR - Patient did complete 6 week course of antibiotics Colonic Neoplasm - CT Abd/Pelvis showing colonic mass and hepatic lesions - GI consulted and following patient - Flex sig/colonoscopy refused by patient at this time - Family unable to be contacted for consent Ischemic Stroke - acute vs. subacute - ASA 81 mg - Lipitor 20mg - PT recommendations for JOSIAH DM 2 - HgA1c is 7.4 - Continue ISS low - Metformin 500mg BID - Carb consistent diet HTN - Lisinopril 10mg Daily - Norvasc 10mg Daily Affective disorder - Celexa 10mg PO Daily - Seroquel HS - Clinically unchanged GI/DVT ppx - Protonix - SCDs Dispo: Patient lacks decision making capacity and is unable to comprehend his diagnosis, medical treatment, potential benefit and risk associated with and without treatment. Guardianship paperwork being processed followed by potential placement. Case and plan discussed with attending Yasmin Bowie PGY-1 <Deanna Schumacher - Last Filed: 02/06/18 15:59> Objective - Vital Signs/Intake and Output Vital Signs (last 24 hours): Temp Pulse Resp BP Pulse Ox 98 F 100 H 19 118/79 96 02/06/18 08:04 02/06/18 09:29 02/06/18 08:04 02/06/18 09:29 02/06/18 08:04 Intake and Output: 02/06/18 02/06/18 06:59 18:59 Intake Total 960 480 Balance 960 480 - Medications Medications: Current Medications Amlodipine Besylate (Norvasc) 10 mg PO DAILY [facility] Last Admin: 02/06/18 09:29 Dose: 10 mg Aspirin (Ecotrin) 81 mg PO DAILY [facility] Last Admin: 02/06/18 09:29 Dose: 81 mg Atorvastatin Calcium (Lipitor) 20 mg PO DIN [facility] Last Admin: 02/05/18 17:18 Dose: 20 mg Citalopram Hydrobromide (Celexa) 10 mg PO DAILY [facility] Last Admin: 02/06/18 09:29 Dose: 10 mg Clotrimazole (Lotrimin Af 1%) 0 ml TOP BID [facility] Last Admin: 02/06/18 09:29 Dose: 1 applic Enoxaparin Sodium (Lovenox) 40 mg SC DAILY [facility] PRN Reason: Protocol Last Admin: 01/30/18 10:11 Dose: 40 mg Folic Acid (Folic Acid) 1 mg PO DAILY [facility] Last Admin: 02/06/18 09:29 Dose: 1 mg Insulin Detemir (Levemir) 15 unit SC HS [facility] Last Admin: 02/03/18 21:48 Dose: 15 unit Insulin Human Regular (Humulin R) 3 units SC AC [facility] Last Admin: 02/04/18 12:33 Dose: Not Given Insulin Human Regular (Humulin R Low) 0 units SC ACHS [facility] PRN Reason: Protocol Last Admin: 02/06/18 11:35 Dose: Not Given Lisinopril (Zestril) 10 mg PO DAILY [facility] Last Admin: 02/06/18 09:29 Dose: 10 mg Metformin HCl (Glucophage) 500 mg PO BID [facility] Last Admin: 02/06/18 09:29 Dose: 500 mg Multivitamins/Minerals (Therapeutic-M Tab) 1 tab PO 0800 [facility] Last Admin: 02/06/18 08:29 Dose: 1 tab Pantoprazole Sodium (Protonix Ec Tab) 40 mg PO 0600 [facility] Last Admin: 02/06/18 05:11 Dose: 40 mg Thiamine HCl (Vitamin B1 Tab) 100 mg PO DAILY [facility] Last Admin: 02/06/18 09:29 Dose: 100 mg Zinc Sulfate (Zinc Sulfate 220 Mg Cap) 220 mg PO DAILY [facility] Last Admin: 02/06/18 09:29 Dose: 220 mg - Labs Labs: 02/02/18 06:00 02/02/18 06:00 PT 12.5 SECONDS (9.4-12.5) 12/09/17 10:00 INR 1.09 (0.93-1.08) H 12/09/17 10:00 APTT 28.3 Seconds (25.1-36.5) 11/30/17 05:30 Attending/Attestation - Attestation I have personally seen and examined this patient.: Yes I have fully participated in the care of the patient.: Yes I have reviewed all pertinent clinical information, including history, physical exam and plan: Yes Notes (Text): 02/06/18 15:59 Medical record note made by the resident after discussion with my direction and input after the patient was personally seen and examined by me. I have reviewed the chart and agree that the record accurately reflects by personal performance of the history, physical exam, data review, and medical decision-making, in the course for the patient. I have also personally directed the plan of care. Patient is stable at base line,Mental status is at base line.he is awaiting for guardianship [facility].He need to be encouraged to ambulate and also need frequent change of position to avoid decubitus ulcer. Prognosis is guarded.
--- NOTE | 2018-02-06 19:45 | PN ---
DATE: 02/06/2018 SUBJECTIVE: The patient was seen earlier this morning. No fever and no chills. No nausea. PHYSICAL EXAMINATION: VITAL SIGNS: Temperature is 98, blood pressure is 120/70, respiratory rate of 16. HEENT: Unremarkable. NECK: Supple. LUNGS: Have decreased breath sounds. HEART: Normal S1, S2. ABDOMEN: Soft, nontender. LABORATORY DATA: Reveals the patient's BUN of 15 and creatinine is 0.5. ASSESSMENT AND PLAN: A 57-year-old male with status post sepsis due to Streptococcus viridans and coagulase-negative bacteremia, right gluteal cellulitis, had a back cellulitis. The patient did complete 6 weeks of antibiotics and at this time, clearly off of antibiotics, afebrile. Encourage ambulation and minimize invasive procedures. The patient is at risk for developing nosocomial infections. Daniel Torres MD
[2018-02-07] MEDS: Pantoprazole 40 mg EC Tab PO SCH (06:37)
[2018-02-07] MEDS: Multivitamin With Minerals Tab PO SCH (08:23)
[2018-02-07] MEDS: Insulin Reg-LOW-Coverage SC SCH ×5 (08:23→22:11)
[2018-02-07] MEDS: Clotrimazole 1% Top Soln(10 ml) TOP SCH ×2 (09:10→17:06)
--- NOTE | 2018-02-07 11:22 | CP.PCM.PN ---
<Rocael Bowie - Last Filed: 02/07/18 11:18> Subjective - Date & Time of Evaluation Date of Evaluation: 02/07/18 Time of Evaluation: 11:18 - Subjective Subjective: Patient seen and evaluated this AM. No acute events reported overnight. Patient denies abdominal pain, chest pain, bloody bowel movements. Patient clinically unchanged from previous 24hours Objective - Vital Signs/Intake and Output Vital Signs (last 24 hours): Temp Pulse Resp BP Pulse Ox 97.8 F 98 H 20 114/75 93 L 02/07/18 07:46 02/07/18 09:10 02/07/18 07:46 02/07/18 09:10 02/07/18 07:46 Intake and Output: 02/07/18 02/07/18 06:59 18:59 Intake Total 660 Balance 660 - Medications Medications: Current Medications Amlodipine Besylate (Norvasc) 10 mg PO DAILY [facility] Last Admin: 02/07/18 09:10 Dose: 10 mg Aspirin (Ecotrin) 81 mg PO DAILY [facility] Last Admin: 02/07/18 09:10 Dose: 81 mg Atorvastatin Calcium (Lipitor) 20 mg PO DIN [facility] Last Admin: 02/06/18 17:39 Dose: 20 mg Citalopram Hydrobromide (Celexa) 10 mg PO DAILY [facility] Last Admin: 02/07/18 09:11 Dose: 10 mg Clotrimazole (Lotrimin Af 1%) 0 ml TOP BID [facility] Last Admin: 02/07/18 09:10 Dose: 1 applic Enoxaparin Sodium (Lovenox) 40 mg SC DAILY [facility] PRN Reason: Protocol Last Admin: 01/30/18 10:11 Dose: 40 mg Folic Acid (Folic Acid) 1 mg PO DAILY [facility] Last Admin: 02/07/18 09:10 Dose: 1 mg Insulin Detemir (Levemir) 15 unit SC HS [facility] Last Admin: 02/03/18 21:48 Dose: 15 unit Insulin Human Regular (Humulin R) 3 units SC AC [facility] Last Admin: 02/04/18 12:33 Dose: Not Given Insulin Human Regular (Humulin R Low) 0 units SC ACHS [facility] PRN Reason: Protocol Last Admin: 02/07/18 08:23 Dose: Not Given Lisinopril (Zestril) 10 mg PO DAILY [facility] Last Admin: 02/07/18 09:10 Dose: 10 mg Metformin HCl (Glucophage) 500 mg PO BID [facility] Last Admin: 02/07/18 09:10 Dose: 500 mg Multivitamins/Minerals (Therapeutic-M Tab) 1 tab PO 0800 [facility] Last Admin: 02/07/18 08:23 Dose: 1 tab Pantoprazole Sodium (Protonix Ec Tab) 40 mg PO 0600 [facility] Last Admin: 02/07/18 06:37 Dose: 40 mg Thiamine HCl (Vitamin B1 Tab) 100 mg PO DAILY [facility] Last Admin: 02/07/18 09:10 Dose: 100 mg Zinc Sulfate (Zinc Sulfate 220 Mg Cap) 220 mg PO DAILY [facility] Last Admin: 02/07/18 09:11 Dose: 220 mg - Labs Labs: 02/02/18 06:00 02/02/18 06:00 PT 12.5 SECONDS (9.4-12.5) 12/09/17 10:00 INR 1.09 (0.93-1.08) H 12/09/17 10:00 APTT 28.3 Seconds (25.1-36.5) 11/30/17 05:30 - Constitutional Appears: No Acute Distress - Head Exam Head Exam: ATRAUMATIC, NORMAL INSPECTION, NORMOCEPHALIC - Eye Exam Eye Exam: EOMI, PERRL Pupil Exam: NORMAL ACCOMODATION - ENT Exam ENT Exam: Mucous Membranes Moist - Neck Exam Neck Exam: Full ROM - Respiratory Exam Respiratory Exam: Clear to Ausculation Bilateral, NORMAL BREATHING PATTERN. absent: Rhonchi, Wheezes - Cardiovascular Exam Cardiovascular Exam: REGULAR RHYTHM, +S1, +S2 - GI/Abdominal Exam GI & Abdominal Exam: Soft, Normal Bowel Sounds. absent: Tenderness - Extremities Exam Extremities Exam: absent: Calf Tenderness - Neurological Exam Neurological Exam: Alert, Awake Additional comments: Motor and sensory grossly intact, able to move all four extremities past midline , poor insight - Psychiatric Exam Psychiatric exam: Flat Affect - Skin Skin Exam: Dry, Warm Additional comments: stage I decubitus break down on right posterior lumbosacral area Assessment and Plan - Assessment and Plan (Free Text) Assessment: 57 year old male with unknown past medical history who was admitted for AMS, right hip cellulitis, multifocal pneumonia, influenza A, strep viridians bacteremia with findings of stroke on MRI - acute vs. 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 Patient was treated for bacteremia with IV abx. Patient continues to refuse testing at this time. Guardianship establishment pending. Plan: 57 year old male with unknown past medical history who was admitted for AMS, right hip cellulitis, multifocal pneumonia, influenza A, strep viridians bacteremia with findings of stroke on MRI - acute vs. 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 Patient was treated for bacteremia with IV abx. Patient continues to refuse testing at this time. Gaurdianship establishment pending. AMS - Delirium precautions - Patient mentation clinically unchanged, able to answer simple questions with simple answers, poor insight - Likely secondary to depression vs. previous brain injury in form of metabolic encephalopathy vs residual stroke deficits Stage I decubitus skin break down - Patient refuses to get out of bed to chair - Refusing activity with PT - Skin break down noticed on lateral posterior lower back/hip - Continue with Q2 turns Bacteremia with S. viridans/mitis and Coag negative Staph Bactermia - Last bld clx negative 12/04/17 with completion of 6 week course of antibiotics - Monitor WBC, ESR, CRP weekly - Echocardiogram unable to rule out vegetations, family is unavailable for consent for TAHIR - Completed 6 week course of antibiotics Colonic Neoplasm - CT Abd/Pelvis showing colonic mass and hepatic lesions - GI consulted and following patient - Flex sig/colonoscopy refused by patient at this time - Family unable to be contacted for consent Ischemic Stroke - acute vs. subacute - ASA 81 mg - Lipitor 20mg - PT recommendations for JOSIAH DM 2 - HgA1c is 7.4 - Continue ISS low - Metformin 500mg BID - Carb consistent diet HTN - Stable - Lisinopril 10mg Daily - Norvasc 10mg Daily Affective disorder - Celexa 10mg PO Daily - Seroquel HS - Clinically unchanged GI/DVT ppx - Protonix - SCDs Dispo: Patient lacks decision making capacity and is unable to comprehend his diagnosis, medical treatment, potential benefit and risk associated with and without treatment. Guardianship paperwork being processed followed by potential placement. Case and plan discussed with attending <Sixto Galo - Last Filed: 02/07/18 12:25> Objective - Vital Signs/Intake and Output Vital Signs (last 24 hours): Temp Pulse Resp BP Pulse Ox 97.8 F 98 H 20 114/75 93 L 02/07/18 07:46 02/07/18 09:10 02/07/18 07:46 02/07/18 09:10 02/07/18 07:46 Intake and Output: 02/07/18 02/07/18 06:59 18:59 Intake Total 660 Balance 660 - Medications Medications: Current Medications Amlodipine Besylate (Norvasc) 10 mg PO DAILY [facility] Last Admin: 02/07/18 09:10 Dose: 10 mg Aspirin (Ecotrin) 81 mg PO DAILY [facility] Last Admin: 02/07/18 09:10 Dose: 81 mg Atorvastatin Calcium (Lipitor) 20 mg PO DIN [facility] Last Admin: 02/06/18 17:39 Dose: 20 mg Citalopram Hydrobromide (Celexa) 10 mg PO DAILY [facility] Last Admin: 02/07/18 09:11 Dose: 10 mg Clotrimazole (Lotrimin Af 1%) 0 ml TOP BID [facility] Last Admin: 02/07/18 09:10 Dose: 1 applic Enoxaparin Sodium (Lovenox) 40 mg SC DAILY [facility] PRN Reason: Protocol Last Admin: 01/30/18 10:11 Dose: 40 mg Folic Acid (Folic Acid) 1 mg PO DAILY [facility] Last Admin: 02/07/18 09:10 Dose: 1 mg Insulin Detemir (Levemir) 15 unit SC HS [facility] Last Admin: 02/03/18 21:48 Dose: 15 unit Insulin Human Regular (Humulin R) 3 units SC AC [facility] Last Admin: 02/04/18 12:33 Dose: Not Given Insulin Human Regular (Humulin R Low) 0 units SC ACHS [facility] PRN Reason: Protocol Last Admin: 02/07/18 08:23 Dose: Not Given Lisinopril (Zestril) 10 mg PO DAILY [facility] Last Admin: 02/07/18 09:10 Dose: 10 mg Metformin HCl (Glucophage) 500 mg PO BID [facility] Last Admin: 02/07/18 09:10 Dose: 500 mg Multivitamins/Minerals (Therapeutic-M Tab) 1 tab PO 0800 [facility] Last Admin: 02/07/18 08:23 Dose: 1 tab Pantoprazole Sodium (Protonix Ec Tab) 40 mg PO 0600 [facility] Last Admin: 02/07/18 06:37 Dose: 40 mg Thiamine HCl (Vitamin B1 Tab) 100 mg PO DAILY [facility] Last Admin: 02/07/18 09:10 Dose: 100 mg Zinc Sulfate (Zinc Sulfate 220 Mg Cap) 220 mg PO DAILY [facility] Last Admin: 02/07/18 09:11 Dose: 220 mg - Labs Labs: 02/02/18 06:00 02/02/18 06:00 PT 12.5 SECONDS (9.4-12.5) 12/09/17 10:00 INR 1.09 (0.93-1.08) H 12/09/17 10:00 APTT 28.3 Seconds (25.1-36.5) 11/30/17 05:30 Attending/Attestation - Attestation I have personally seen and examined this patient.: Yes I have fully participated in the care of the patient.: Yes I have reviewed all pertinent clinical information, including history, physical exam and plan: Yes Notes (Text): 02/07/18 12:20 57 year old male with no know past medical history who was admitted with altered mental status. He was initially treated for right hip cellulitis, pneumonia and flu earlier earlier during the admission. He was also found to have strep viridans bacteremia for which he has completed course of iv antibiotics. Echocardiogram could not rule out vegetations however family is not available to give consent for TAHIR. CT abd/pelvis showed colonic mass and liver lesions. At this time consent cannot be obtained for sigmoidoscopy or biopsy. He was also found to have acute vs subacute infarct. He is on aspirin and statin. PT has recommended JOSIAH. He is on metformin and insulin ss for diabetes and norvasc and lisinopril for hypertension. Case management and licensed clinical social worker are working on guardianship and disposition. Sixto Galo MD Hospitalist.
--- NOTE | 2018-02-07 18:43 | CP.PCM.PN ---
Subjective - Date & Time of Evaluation Date of Evaluation: 02/07/18 Time of Evaluation: 10:50 - Subjective Subjective: No fevers, no diarrhea, not in distress. Objective - Vital Signs/Intake and Output Vital Signs (last 24 hours): Temp Pulse Resp BP Pulse Ox 98.1 F 91 H 20 123/82 96 02/07/18 16:00 02/07/18 16:00 02/07/18 16:00 02/07/18 16:00 02/07/18 16:00 Intake and Output: 02/07/18 02/07/18 06:59 18:59 Intake Total 660 480 Balance 660 480 - Medications Medications: Current Medications Amlodipine Besylate (Norvasc) 10 mg PO DAILY [facility] Last Admin: 02/07/18 09:10 Dose: 10 mg Aspirin (Ecotrin) 81 mg PO DAILY [facility] Last Admin: 02/07/18 09:10 Dose: 81 mg Atorvastatin Calcium (Lipitor) 20 mg PO DIN [facility] Last Admin: 02/07/18 17:06 Dose: 20 mg Citalopram Hydrobromide (Celexa) 10 mg PO DAILY [facility] Last Admin: 02/07/18 09:11 Dose: 10 mg Clotrimazole (Lotrimin Af 1%) 0 ml TOP BID [facility] Last Admin: 02/07/18 17:06 Dose: 1 applic Enoxaparin Sodium (Lovenox) 40 mg SC DAILY [facility] PRN Reason: Protocol Last Admin: 01/30/18 10:11 Dose: 40 mg Folic Acid (Folic Acid) 1 mg PO DAILY [facility] Last Admin: 02/07/18 09:10 Dose: 1 mg Insulin Detemir (Levemir) 15 unit SC HS [facility] Last Admin: 02/03/18 21:48 Dose: 15 unit Insulin Human Regular (Humulin R) 3 units SC AC [facility] Last Admin: 02/04/18 12:33 Dose: Not Given Insulin Human Regular (Humulin R Low) 0 units SC ACHS [facility] PRN Reason: Protocol Last Admin: 02/07/18 17:06 Dose: 1 units Lisinopril (Zestril) 10 mg PO DAILY [facility] Last Admin: 02/07/18 09:10 Dose: 10 mg Metformin HCl (Glucophage) 500 mg PO BID [facility] Last Admin: 02/07/18 17:06 Dose: 500 mg Multivitamins/Minerals (Therapeutic-M Tab) 1 tab PO 0800 [facility] Last Admin: 02/07/18 08:23 Dose: 1 tab Pantoprazole Sodium (Protonix Ec Tab) 40 mg PO 0600 [facility] Last Admin: 02/07/18 06:37 Dose: 40 mg Thiamine HCl (Vitamin B1 Tab) 100 mg PO DAILY [facility] Last Admin: 02/07/18 09:10 Dose: 100 mg Zinc Sulfate (Zinc Sulfate 220 Mg Cap) 220 mg PO DAILY [facility] Last Admin: 02/07/18 09:11 Dose: 220 mg - Labs Labs: 02/02/18 06:00 02/02/18 06:00 PT 12.5 SECONDS (9.4-12.5) 12/09/17 10:00 INR 1.09 (0.93-1.08) H 12/09/17 10:00 APTT 28.3 Seconds (25.1-36.5) 11/30/17 05:30 - Constitutional Appears: Non-toxic, Chronically Ill - Head Exam Head Exam: NORMAL INSPECTION - ENT Exam ENT Exam: Mucous Membranes Moist - Respiratory Exam Respiratory Exam: Decreased Breath Sounds - Cardiovascular Exam Cardiovascular Exam: +S1, +S2 - GI/Abdominal Exam GI & Abdominal Exam: Soft. absent: Tenderness Assessment and Plan - Assessment and Plan (Free Text) Plan: Assessment S/P sepsis due to strep viridans and CoNS bacteremia from right gluteal and back cellulitis S/P multifocal HCAP on top of Influenza A infection S/P Sammie infection of sacral area as well peripheral vascular disease Plan completed 42 days of antibiotics - continue to follow clinically off antibiotics since he is at risk for nosocomial infections
[2018-02-08] MEDS: Pantoprazole 40 mg EC Tab PO SCH (05:30)
--- NOTE | 2018-02-08 06:48 | CP.PCM.PN ---
<Cathy Alexis - Last Filed: 02/08/18 13:24> Subjective - Date & Time of Evaluation Date of Evaluation: 02/08/18 Time of Evaluation: 07:15 - Subjective Subjective: Pgy2 Medicine note for Dr. Galo Patient seen and examined at bedside. As per nursing patient was agitated and did not sleep overnight. Nursing also reported foul smelling stool although no diarrhea. When I saw patient this AM he was resting comfortably in bed. He denied acute complaints of fever, chest pain, SOB, abd pain, pain in his legs b/ l. Patient reported he ate eggs this AM. As per nursing he refuses to be OOB to chair. Objective - Vital Signs/Intake and Output Vital Signs (last 24 hours): Temp Pulse Resp BP Pulse Ox 98.1 F 91 H 20 123/82 96 02/07/18 16:00 02/07/18 16:00 02/07/18 16:00 02/07/18 16:00 02/07/18 16:00 Intake and Output: 02/07/18 02/08/18 18:59 06:59 Intake Total 480 840 Balance 480 840 - Medications Medications: Current Medications Amlodipine Besylate (Norvasc) 10 mg PO DAILY [facility] Last Admin: 02/07/18 09:10 Dose: 10 mg Aspirin (Ecotrin) 81 mg PO DAILY [facility] Last Admin: 02/07/18 09:10 Dose: 81 mg Atorvastatin Calcium (Lipitor) 20 mg PO DIN [facility] Last Admin: 02/07/18 17:06 Dose: 20 mg Citalopram Hydrobromide (Celexa) 10 mg PO DAILY [facility] Last Admin: 02/07/18 09:11 Dose: 10 mg Clotrimazole (Lotrimin Af 1%) 0 ml TOP BID [facility] Last Admin: 02/07/18 17:06 Dose: 1 applic Enoxaparin Sodium (Lovenox) 40 mg SC DAILY [facility] PRN Reason: Protocol Last Admin: 01/30/18 10:11 Dose: 40 mg Folic Acid (Folic Acid) 1 mg PO DAILY [facility] Last Admin: 02/07/18 09:10 Dose: 1 mg Insulin Detemir (Levemir) 15 unit SC HS [facility] Last Admin: 02/03/18 21:48 Dose: 15 unit Insulin Human Regular (Humulin R) 3 units SC AC [facility] Last Admin: 02/04/18 12:33 Dose: Not Given Insulin Human Regular (Humulin R Low) 0 units SC ACHS [facility] PRN Reason: Protocol Last Admin: 02/07/18 22:11 Dose: Not Given Lisinopril (Zestril) 10 mg PO DAILY [facility] Last Admin: 02/07/18 09:10 Dose: 10 mg Metformin HCl (Glucophage) 500 mg PO BID [facility] Last Admin: 02/07/18 17:06 Dose: 500 mg Multivitamins/Minerals (Therapeutic-M Tab) 1 tab PO 0800 [facility] Last Admin: 02/07/18 08:23 Dose: 1 tab Pantoprazole Sodium (Protonix Ec Tab) 40 mg PO 0600 [facility] Last Admin: 02/08/18 05:30 Dose: 40 mg Thiamine HCl (Vitamin B1 Tab) 100 mg PO DAILY [facility] Last Admin: 02/07/18 09:10 Dose: 100 mg Zinc Sulfate (Zinc Sulfate 220 Mg Cap) 220 mg PO DAILY [facility] Last Admin: 02/07/18 09:11 Dose: 220 mg - Labs Labs: 02/02/18 06:00 02/02/18 06:00 PT 12.5 SECONDS (9.4-12.5) 12/09/17 10:00 INR 1.09 (0.93-1.08) H 12/09/17 10:00 APTT 28.3 Seconds (25.1-36.5) 11/30/17 05:30 - Constitutional Appears: Non-toxic, No Acute Distress - Head Exam Head Exam: ATRAUMATIC, NORMAL INSPECTION, NORMOCEPHALIC - Eye Exam Eye Exam: Normal appearance. absent: Conjunctival injection, Scleral icterus - ENT Exam ENT Exam: Mucous Membranes Moist - Neck Exam Neck Exam: Normal Inspection - Respiratory Exam Respiratory Exam: Clear to Ausculation Bilateral, NORMAL BREATHING PATTERN. absent: Accessory Muscle Use, Rales, Rhonchi, Wheezes, Respiratory Distress - Cardiovascular Exam Cardiovascular Exam: REGULAR RHYTHM, RRR, +S1, +S2. absent: Murmur - GI/Abdominal Exam GI & Abdominal Exam: Soft, Normal Bowel Sounds. absent: Firm, Guarding, Rigid, Tenderness - Rectal Exam Rectal Exam: Deferred - Extremities Exam Extremities Exam: absent: Calf Tenderness, Pedal Edema Additional comments: stockings in place - Neurological Exam Neurological Exam: Alert, Awake Additional comments: Motor and sensory grossly intact, able to move all four extremities past midline , poor insight - Psychiatric Exam Psychiatric exam: Flat Affect - Skin Skin Exam: Dry, Warm Additional comments: stage I decubitus break down on right posterior lumbosacral area Assessment and Plan - Assessment and Plan (Free Text) Assessment: 57 year old male with unknown past medical history who was admitted for AMS, right hip cellulitis, multifocal pneumonia, influenza A, strep viridians bacteremia with findings of stroke on MRI - acute vs. 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 Patient was treated for bacteremia with IV abx. Patient continues to refuse testing at this time. Guardianship establishment pending. Plan: AMS - Delirium precautions - Patient mentation clinically unchanged, able to answer simple questions with simple answers, poor insight - Likely secondary to depression vs. previous brain injury in form of metabolic encephalopathy vs residual stroke deficits Foul smelling stool - f/u stool studies Stage I decubitus skin break down - Patient refuses to get out of bed to chair - Refusing activity with PT - Skin break down noticed on lateral posterior lower back/hip - Continue with Q2 turns Bacteremia with S. viridans/mitis and Coag negative Staph Bactermia - Last bld clx negative 12/04/17 with completion of 6 week course of antibiotics - Monitor WBC, ESR, CRP weekly - Echocardiogram unable to rule out vegetations, family is unavailable for consent for TAHIR - Completed 6 week course of antibiotics Colonic Neoplasm - CT Abd/Pelvis showing colonic mass and hepatic lesions - GI consulted and following patient - Flex sig/colonoscopy refused by patient at this time - Family unable to be contacted for consent Ischemic Stroke - acute vs. subacute - ASA 81 mg - Lipitor 20mg - PT recommendations for JOSIAH DM 2 - HgA1c is 7.4 - Continue ISS low - Metformin 500mg BID - Carb consistent diet HTN - Stable - Lisinopril 10mg Daily - Norvasc 10mg Daily Affective disorder - Celexa 10mg PO Daily - Seroquel HS - Clinically unchanged GI/DVT ppx - Protonix - SCDs Dispo: Patient lacks decision making capacity and is unable to comprehend his diagnosis, medical treatment, potential benefit and risk associated with and without treatment. Guardianship paperwork being processed followed by potential placement. Discussed with attending Dr. Iraj Alexis PGY2 <Iraj,Anwar A - Last Filed: 02/08/18 14:15> Objective - Vital Signs/Intake and Output Vital Signs (last 24 hours): Temp Pulse Resp BP Pulse Ox 97.4 F L 101 H 16 109/68 95 02/08/18 08:05 02/08/18 09:05 02/08/18 08:05 02/08/18 09:05 02/08/18 08:05 Intake and Output: 02/08/18 02/08/18 06:59 18:59 Intake Total 840 Balance 840 - Medications Medications: Current Medications Amlodipine Besylate (Norvasc) 10 mg PO DAILY [facility] Last Admin: 02/08/18 09:05 Dose: 10 mg Aspirin (Ecotrin) 81 mg PO DAILY [facility] Last Admin: 02/08/18 09:02 Dose: 81 mg Atorvastatin Calcium (Lipitor) 20 mg PO DIN [facility] Last Admin: 02/07/18 17:06 Dose: 20 mg Citalopram Hydrobromide (Celexa) 10 mg PO DAILY [facility] Last Admin: 02/08/18 09:02 Dose: 10 mg Clotrimazole (Lotrimin Af 1%) 0 ml TOP BID [facility] Last Admin: 02/08/18 09:02 Dose: 1 applic Enoxaparin Sodium (Lovenox) 40 mg SC DAILY [facility] PRN Reason: Protocol Last Admin: 01/30/18 10:11 Dose: 40 mg Folic Acid (Folic Acid) 1 mg PO DAILY [facility] Last Admin: 02/08/18 09:02 Dose: 1 mg Insulin Human Regular (Humulin R Low) 0 units SC ACHS [facility] PRN Reason: Protocol Last Admin: 02/08/18 12:25 Dose: 1 units Lisinopril (Zestril) 10 mg PO DAILY [facility] Last Admin: 02/08/18 09:05 Dose: 10 mg Metformin HCl (Glucophage) 500 mg PO BID [facility] Last Admin: 02/08/18 09:02 Dose: 500 mg Multivitamins/Minerals (Therapeutic-M Tab) 1 tab PO 0800 [facility] Last Admin: 02/08/18 08:28 Dose: 1 tab Pantoprazole Sodium (Protonix Ec Tab) 40 mg PO 0600 [facility] Last Admin: 02/08/18 05:30 Dose: 40 mg Quetiapine Fumarate (Seroquel) 12.5 mg PO HS PRN; Protocol PRN Reason: Agitation Thiamine HCl (Vitamin B1 Tab) 100 mg PO DAILY [facility] Last Admin: 02/08/18 09:02 Dose: 100 mg Zinc Sulfate (Zinc Sulfate 220 Mg Cap) 220 mg PO DAILY [facility] Last Admin: 02/08/18 09:02 Dose: 220 mg - Labs Labs: 02/02/18 06:00 02/02/18 06:00 PT 12.5 SECONDS (9.4-12.5) 12/09/17 10:00 INR 1.09 (0.93-1.08) H 12/09/17 10:00 APTT 28.3 Seconds (25.1-36.5) 11/30/17 05:30 Attending/Attestation - Attestation I have personally seen and examined this patient.: Yes I have fully participated in the care of the patient.: Yes I have reviewed all pertinent clinical information, including history, physical exam and plan: Yes Notes (Text): 02/08/18 14:11 57 year old male with no know past medical history who was admitted with altered mental status. He was initially treated for right hip cellulitis, pneumonia and flu earlier earlier during the admission. He was also found to have strep viridans bacteremia for which he has completed course of iv antibiotics. Echocardiogram could not rule out vegetations however family is not available to give consent for TAHIR. CT abd/pelvis showed colonic mass and liver lesions. At this time consent cannot be obtained for sigmoidoscopy or biopsy. He was also found to have acute vs subacute infarct. He is on aspirin and statin. PT has recommended JOSIAH. He is on metformin and insulin ss for diabetes and norvasc and lisinopril for hypertension. He is currently at his baseline mental status. Denies any new complaints. Case management and group social worker are working on guardianship and disposition. Sixto Galo MD Hospitalist.
[2018-02-08] MEDS: Insulin Reg-LOW-Coverage SC SCH ×4 (08:20→22:34)
[2018-02-08] MEDS: Multivitamin With Minerals Tab PO SCH (08:28)
[2018-02-08] MEDS: Clotrimazole 1% Top Soln(10 ml) TOP SCH ×2 (09:02→17:08)
--- NOTE | 2018-02-09 05:09 | PN ---
DATE: 02/08/2018 SUBJECTIVE: Patient is seen in bed, in no acute distress. PHYSICAL EXAMINATION: VITAL SIGNS: Temperature is 97, blood pressure is 109/60, respiratory rate of 18, heart rate of 75. HEENT: Unremarkable. NECK: Supple. LUNGS: Have decreased breath sounds. HEART: Normal S1 and S2. ABDOMEN: Soft, nontender. LABORATORY DATA: Reveals the patient's white count is 8, hemoglobin of 10, platelets of 329. Chemistries are noted. Review of the orders reveals the patient to be off of antibiotics. ASSESSMENT AND PLAN: This is a 57-year-old male, status post sepsis due to Streptococcus viridans and coag-negative bacteremia, right gluteal cellulitis and back cellulitis. Has completed 6 weeks of antibiotics; currently now off of antibiotics, afebrile. Patient is at risk for developing nosocomial infections. Daniel Torres MD
[2018-02-09] MEDS: Pantoprazole 40 mg EC Tab PO SCH (05:28)
--- NOTE | 2018-02-09 06:43 | CP.PCM.PN ---
<Cathy Alexis - Last Filed: 02/09/18 11:19> Subjective - Date & Time of Evaluation Date of Evaluation: 02/09/18 Time of Evaluation: 07:30 - Subjective Subjective: PGY2 Medicine note for Dr. Galo Patient seen and examined at bedside. Nursing reported no acute events overnight. Patient is clinically unchanged from prior day. He denied acute complaints of fever, chest pain, SOB, abd pain, pain in his legs b/l. Continues to refuse OOB to chair. Objective - Vital Signs/Intake and Output Vital Signs (last 24 hours): Temp Pulse Resp BP Pulse Ox 97.7 F 75 19 109/69 97 02/08/18 16:00 02/08/18 16:00 02/08/18 16:00 02/08/18 16:00 02/08/18 16:00 - Medications Medications: Current Medications Amlodipine Besylate (Norvasc) 10 mg PO DAILY [facility] Last Admin: 02/08/18 09:05 Dose: 10 mg Aspirin (Ecotrin) 81 mg PO DAILY [facility] Last Admin: 02/08/18 09:02 Dose: 81 mg Atorvastatin Calcium (Lipitor) 20 mg PO DIN [facility] Last Admin: 02/08/18 17:06 Dose: 20 mg Citalopram Hydrobromide (Celexa) 10 mg PO DAILY [facility] Last Admin: 02/08/18 09:02 Dose: 10 mg Clotrimazole (Lotrimin Af 1%) 0 ml TOP BID [facility] Last Admin: 02/08/18 17:08 Dose: 1 applic Enoxaparin Sodium (Lovenox) 40 mg SC DAILY [facility] PRN Reason: Protocol Last Admin: 01/30/18 10:11 Dose: 40 mg Folic Acid (Folic Acid) 1 mg PO DAILY [facility] Last Admin: 02/08/18 09:02 Dose: 1 mg Insulin Human Regular (Humulin R Low) 0 units SC ACHS [facility] PRN Reason: Protocol Last Admin: 02/08/18 22:34 Dose: Not Given Lisinopril (Zestril) 10 mg PO DAILY [facility] Last Admin: 02/08/18 09:05 Dose: 10 mg Metformin HCl (Glucophage) 500 mg PO BID [facility] Last Admin: 02/08/18 17:06 Dose: 500 mg Multivitamins/Minerals (Therapeutic-M Tab) 1 tab PO 0800 [facility] Last Admin: 02/08/18 08:28 Dose: 1 tab Pantoprazole Sodium (Protonix Ec Tab) 40 mg PO 0600 [facility] Last Admin: 02/09/18 05:28 Dose: 40 mg Quetiapine Fumarate (Seroquel) 12.5 mg PO HS PRN; Protocol PRN Reason: Agitation Thiamine HCl (Vitamin B1 Tab) 100 mg PO DAILY [facility] Last Admin: 02/08/18 09:02 Dose: 100 mg Zinc Sulfate (Zinc Sulfate 220 Mg Cap) 220 mg PO DAILY [facility] Last Admin: 02/08/18 09:02 Dose: 220 mg - Labs Labs: 02/02/18 06:00 02/02/18 06:00 PT 12.5 SECONDS (9.4-12.5) 12/09/17 10:00 INR 1.09 (0.93-1.08) H 12/09/17 10:00 APTT 28.3 Seconds (25.1-36.5) 11/30/17 05:30 - Constitutional Appears: Non-toxic, No Acute Distress - Head Exam Head Exam: ATRAUMATIC, NORMAL INSPECTION, NORMOCEPHALIC - Eye Exam Eye Exam: Normal appearance. absent: Conjunctival injection, Scleral icterus - ENT Exam ENT Exam: Mucous Membranes Moist - Respiratory Exam Respiratory Exam: Clear to Ausculation Bilateral, NORMAL BREATHING PATTERN. absent: Accessory Muscle Use, Rales, Rhonchi, Wheezes, Respiratory Distress - Cardiovascular Exam Cardiovascular Exam: +S1, +S2 - GI/Abdominal Exam GI & Abdominal Exam: Soft, Normal Bowel Sounds. absent: Tenderness - Rectal Exam Rectal Exam: Deferred - Extremities Exam Extremities Exam: Normal Inspection. absent: Pedal Edema Additional comments: stockings in place b/l - Neurological Exam Neurological Exam: Alert, Awake - Psychiatric Exam Psychiatric exam: Flat Affect - Skin Skin Exam: Dry, Intact Assessment and Plan - Assessment and Plan (Free Text) Assessment: 57yo male unknown PMHx admitted for AMS, right hip cellulitis, multifocal pneumonia, influenza A, strep viridians bacteremia with findings of stroke on MRI - acute vs. 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 Patient was treated for bacteremia with IV abx. Patient continues to refuse testing at this time. Guardianship establishment pending. Plan: AMS - resolved- currently at baseline mentation which waxes and wanes - Delirium precautions - Patient mentation clinically unchanged, able to answer simple questions with simple answers, poor insight - Likely secondary to depression vs. previous brain injury in form of metabolic encephalopathy vs residual stroke deficits Foul smelling stool - f/u stool studies Stage I decubitus skin break down - Patient refuses to get out of bed to chair - Refusing activity with PT - Skin break down noticed on lateral posterior lower back/hip - Continue with Q2 turns Bacteremia with S. viridans/mitis and Coag negative Staph Bactermia - Last bld clx negative 12/04/17 with completion of 6 week course of antibiotics - Monitor WBC, ESR, CRP weekly - Echocardiogram unable to rule out vegetations, family is unavailable for consent for TAHIR - Completed 6 week course of antibiotics Colonic Neoplasm - CT Abd/Pelvis showing colonic mass and hepatic lesions - GI consulted and following patient - Flex sig/colonoscopy refused by patient at this time - Family unable to be contacted for consent Ischemic Stroke - acute vs. subacute - ASA 81 mg - Lipitor 20mg - PT recommendations for JOSIAH DM2 - HgA1c is 7.4 - Continue ISS low - Metformin 500mg BID - Carb consistent diet HTN - Stable - Lisinopril 10mg Daily - Norvasc 10mg Daily Affective disorder - Celexa 10mg PO Daily - Seroquel HS - Clinically unchanged GI/DVT ppx - Protonix - SCDs Dispo: Patient lacks decision making capacity and is unable to comprehend his diagnosis, medical treatment, potential benefit and risk associated with and without treatment. Guardianship paperwork being processed followed by potential placement. Discussed with attending Dr. Iraj Alexis PGY2 <Sixto Galo - Last Filed: 02/09/18 12:03> Objective - Vital Signs/Intake and Output Vital Signs (last 24 hours): Temp Pulse Resp BP Pulse Ox 97.5 F L 90 20 130/78 98 02/09/18 06:00 02/09/18 11:03 02/09/18 06:00 02/09/18 11:04 02/09/18 06:00 - Medications Medications: Current Medications Amlodipine Besylate (Norvasc) 10 mg PO DAILY [facility] Last Admin: 02/09/18 11:04 Dose: 10 mg Aspirin (Ecotrin) 81 mg PO DAILY [facility] Last Admin: 02/09/18 11:04 Dose: 81 mg Atorvastatin Calcium (Lipitor) 20 mg PO DIN [facility] Last Admin: 02/08/18 17:06 Dose: 20 mg Citalopram Hydrobromide (Celexa) 10 mg PO DAILY [facility] Last Admin: 02/09/18 11:04 Dose: 10 mg Clotrimazole (Lotrimin Af 1%) 0 ml TOP BID [facility] Last Admin: 02/09/18 11:04 Dose: 1 applic Enoxaparin Sodium (Lovenox) 40 mg SC DAILY [facility] PRN Reason: Protocol Last Admin: 01/30/18 10:11 Dose: 40 mg Folic Acid (Folic Acid) 1 mg PO DAILY [facility] Last Admin: 02/09/18 11:03 Dose: 1 mg Insulin Human Regular (Humulin R Low) 0 units SC ACHS [facility] PRN Reason: Protocol Last Admin: 02/09/18 11:26 Dose: 2 units Lisinopril (Zestril) 10 mg PO DAILY [facility] Last Admin: 02/09/18 11:03 Dose: 10 mg Metformin HCl (Glucophage) 500 mg PO BID [facility] Last Admin: 02/09/18 11:03 Dose: 500 mg Multivitamins/Minerals (Therapeutic-M Tab) 1 tab PO 0800 [facility] Last Admin: 02/09/18 08:38 Dose: 1 tab Pantoprazole Sodium (Protonix Ec Tab) 40 mg PO 0600 [facility] Last Admin: 02/09/18 05:28 Dose: 40 mg Quetiapine Fumarate (Seroquel) 12.5 mg PO HS PRN; Protocol PRN Reason: Agitation Thiamine HCl (Vitamin B1 Tab) 100 mg PO DAILY [facility] Last Admin: 02/09/18 11:04 Dose: 100 mg Zinc Sulfate (Zinc Sulfate 220 Mg Cap) 220 mg PO DAILY [facility] Last Admin: 02/09/18 11:04 Dose: 220 mg - Labs Labs: 02/02/18 06:00 02/02/18 06:00 PT 12.5 SECONDS (9.4-12.5) 12/09/17 10:00 INR 1.09 (0.93-1.08) H 12/09/17 10:00 APTT 28.3 Seconds (25.1-36.5) 11/30/17 05:30 Attending/Attestation - Attestation I have personally seen and examined this patient.: Yes I have fully participated in the care of the patient.: Yes I have reviewed all pertinent clinical information, including history, physical exam and plan: Yes Notes (Text): 02/09/18 12:01 57 year old male with no know past medical history who was admitted with altered mental status. He was initially treated for right hip cellulitis, pneumonia and flu earlier earlier during the admission. He was also found to have strep viridans bacteremia for which he has completed course of iv antibiotics. Echocardiogram could not rule out vegetations however family is not available to give consent for TAHIR. CT abd/pelvis showed colonic mass and liver lesions. At this time consent cannot be obtained for sigmoidoscopy or biopsy. He was also found to have acute vs subacute infarct. He is on aspirin and statin. PT has recommended JOSIAH. He is on metformin and insulin ss for diabetes. He is on norvasc and lisinopril for hypertension. He is currently at his baseline mental status. Denies any new complaints. Case management and social media executive are working on guardianship and disposition. Sixto Galo MD Hospitalist.
[2018-02-09] MEDS: Multivitamin With Minerals Tab PO SCH (08:38)
[2018-02-09] MEDS: Insulin Reg-LOW-Coverage SC SCH ×4 (08:39→21:16)
[2018-02-09] MEDS: Clotrimazole 1% Top Soln(10 ml) TOP SCH (11:04)
--- NOTE | 2018-02-09 19:09 | CP.PCM.PN ---
Subjective - Date & Time of Evaluation Date of Evaluation: 02/09/18 Time of Evaluation: 11:10 - Subjective Subjective: Comfortable, afebrile, no diarrhea, no nausea. Objective - Vital Signs/Intake and Output Vital Signs (last 24 hours): Temp Pulse Resp BP Pulse Ox 98.5 F 90 20 120/79 98 02/09/18 16:00 02/09/18 11:03 02/09/18 16:00 02/09/18 16:00 02/09/18 16:00 Intake and Output: 02/09/18 02/10/18 18:59 06:59 Intake Total 360 Balance 360 - Medications Medications: Current Medications Amlodipine Besylate (Norvasc) 10 mg PO DAILY [facility] Last Admin: 02/09/18 11:04 Dose: 10 mg Aspirin (Ecotrin) 81 mg PO DAILY [facility] Last Admin: 02/09/18 11:04 Dose: 81 mg Atorvastatin Calcium (Lipitor) 20 mg PO DIN [facility] Last Admin: 02/09/18 18:20 Dose: 20 mg Citalopram Hydrobromide (Celexa) 10 mg PO DAILY [facility] Last Admin: 02/09/18 11:04 Dose: 10 mg Enoxaparin Sodium (Lovenox) 40 mg SC DAILY [facility] PRN Reason: Protocol Last Admin: 01/30/18 10:11 Dose: 40 mg Folic Acid (Folic Acid) 1 mg PO DAILY [facility] Last Admin: 02/09/18 11:03 Dose: 1 mg Insulin Human Regular (Humulin R Low) 0 units SC ACHS [facility] PRN Reason: Protocol Last Admin: 02/09/18 18:20 Dose: 1 units Lisinopril (Zestril) 10 mg PO DAILY [facility] Last Admin: 02/09/18 11:03 Dose: 10 mg Metformin HCl (Glucophage) 500 mg PO BID [facility] Last Admin: 02/09/18 18:24 Dose: 500 mg Multivitamins/Minerals (Therapeutic-M Tab) 1 tab PO 0800 [facility] Last Admin: 02/09/18 08:38 Dose: 1 tab Pantoprazole Sodium (Protonix Ec Tab) 40 mg PO 0600 [facility] Last Admin: 02/09/18 05:28 Dose: 40 mg Quetiapine Fumarate (Seroquel) 12.5 mg PO HS PRN; Protocol PRN Reason: Agitation Thiamine HCl (Vitamin B1 Tab) 100 mg PO DAILY [facility] Last Admin: 02/09/18 11:04 Dose: 100 mg Zinc Sulfate (Zinc Sulfate 220 Mg Cap) 220 mg PO DAILY [facility] Last Admin: 02/09/18 11:04 Dose: 220 mg - Labs Labs: 02/02/18 06:00 02/02/18 06:00 PT 12.5 SECONDS (9.4-12.5) 12/09/17 10:00 INR 1.09 (0.93-1.08) H 12/09/17 10:00 APTT 28.3 Seconds (25.1-36.5) 11/30/17 05:30 - Constitutional Appears: Non-toxic, Chronically Ill - Head Exam Head Exam: NORMAL INSPECTION - Respiratory Exam Respiratory Exam: Decreased Breath Sounds - Cardiovascular Exam Cardiovascular Exam: +S1, +S2 - GI/Abdominal Exam GI & Abdominal Exam: Soft. absent: Tenderness Assessment and Plan - Assessment and Plan (Free Text) Plan: Assessment S/P sepsis due to strep viridans and CoNS bacteremia from right gluteal and back cellulitis S/P multifocal HCAP on top of Influenza A infection S/P Sammie infection of sacral area as well peripheral vascular disease Plan completed 42 days of antibiotics - continue to follow clinically off antibiotics since he is at risk for hospital-acquired infections
[2018-02-10] MEDS: Pantoprazole 40 mg EC Tab PO SCH (05:39)
--- NOTE | 2018-02-10 07:03 | CP.PCM.PN ---
<Cathy Alexis - Last Filed: 02/10/18 12:41> Subjective - Date & Time of Evaluation Date of Evaluation: 02/10/18 Time of Evaluation: 07:30 - Subjective Subjective: PGY2 Medicine note for Dr. Galo Patient seen and examined at bedside. Nursing reported no acute events overnight. Patient is clinically unchanged. Continues to refuse being OOB to chair. Denied acute complaints of headache, chest pain, SOB, abd pain, pain in his legs b/l. Objective - Vital Signs/Intake and Output Vital Signs (last 24 hours): Temp Pulse Resp BP Pulse Ox 98.5 F 90 20 120/79 98 02/09/18 16:00 02/09/18 11:03 02/09/18 16:00 02/09/18 16:00 02/09/18 16:00 Intake and Output: 02/10/18 02/10/18 06:59 18:59 Intake Total 660 Balance 660 - Medications Medications: Current Medications Amlodipine Besylate (Norvasc) 10 mg PO DAILY [facility] Last Admin: 02/09/18 11:04 Dose: 10 mg Aspirin (Ecotrin) 81 mg PO DAILY [facility] Last Admin: 02/09/18 11:04 Dose: 81 mg Atorvastatin Calcium (Lipitor) 20 mg PO DIN [facility] Last Admin: 02/09/18 18:20 Dose: 20 mg Citalopram Hydrobromide (Celexa) 10 mg PO DAILY [facility] Last Admin: 02/09/18 11:04 Dose: 10 mg Enoxaparin Sodium (Lovenox) 40 mg SC DAILY [facility] PRN Reason: Protocol Last Admin: 01/30/18 10:11 Dose: 40 mg Folic Acid (Folic Acid) 1 mg PO DAILY [facility] Last Admin: 02/09/18 11:03 Dose: 1 mg Insulin Human Regular (Humulin R Low) [address] [facility] PRN Reason: Protocol Last Admin: 02/09/18 21:16 Dose: Not Given Lisinopril (Zestril) 10 mg PO DAILY [facility] Last Admin: 02/09/18 11:03 Dose: 10 mg Metformin HCl (Glucophage) 500 mg PO BID [facility] Last Admin: 02/09/18 18:24 Dose: 500 mg Multivitamins/Minerals (Therapeutic-M Tab) 1 tab PO 0800 [facility] Last Admin: 02/09/18 08:38 Dose: 1 tab Pantoprazole Sodium (Protonix Ec Tab) 40 mg PO 0600 [facility] Last Admin: 02/10/18 05:39 Dose: 40 mg Quetiapine Fumarate (Seroquel) 12.5 mg PO HS PRN; Protocol PRN Reason: Agitation Thiamine HCl (Vitamin B1 Tab) 100 mg PO DAILY [facility] Last Admin: 02/09/18 11:04 Dose: 100 mg Zinc Sulfate (Zinc Sulfate 220 Mg Cap) 220 mg PO DAILY [facility] Last Admin: 02/09/18 11:04 Dose: 220 mg - Labs Labs: 02/02/18 06:00 02/02/18 06:00 PT 12.5 SECONDS (9.4-12.5) 12/09/17 10:00 INR 1.09 (0.93-1.08) H 12/09/17 10:00 APTT 28.3 Seconds (25.1-36.5) 11/30/17 05:30 - Constitutional Appears: Non-toxic, No Acute Distress - Head Exam Head Exam: ATRAUMATIC, NORMAL INSPECTION, NORMOCEPHALIC - Eye Exam Eye Exam: Normal appearance. absent: Conjunctival injection, Scleral icterus - Respiratory Exam Respiratory Exam: Clear to Ausculation Bilateral, NORMAL BREATHING PATTERN. absent: Accessory Muscle Use, Rales, Rhonchi, Wheezes - Cardiovascular Exam Cardiovascular Exam: REGULAR RHYTHM, RRR, +S1, +S2 - GI/Abdominal Exam GI & Abdominal Exam: Soft, Normal Bowel Sounds. absent: Tenderness - Rectal Exam Rectal Exam: Deferred - Extremities Exam Extremities Exam: Normal Inspection. absent: Pedal Edema - Neurological Exam Neurological Exam: Alert, Awake - Psychiatric Exam Psychiatric exam: Flat Affect - Skin Skin Exam: Dry Assessment and Plan - Assessment and Plan (Free Text) Assessment: 57yo male unknown PMHx admitted for AMS, right hip cellulitis, multifocal pneumonia, influenza A, strep viridians bacteremia with findings of stroke on MRI - acute vs. 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 Patient was treated for bacteremia with IV abx. Patient continues to refuse testing at this time. Guardianship establishment pending. Plan: AMS - resolved- currently at baseline mentation which waxes and wanes - Delirium precautions - Patient mentation clinically unchanged, able to answer simple questions with simple answers, poor insight - Likely secondary to depression vs. previous brain injury in form of metabolic encephalopathy vs residual stroke deficits Foul smelling stool - f/u stool studies Stage I decubitus skin break down - Patient refuses to get out of bed to chair - Refusing activity with PT - Skin break down noticed on lateral posterior lower back/hip - Continue with Q2 turns Bacteremia with S. viridans/mitis and Coag negative Staph Bactermia - Last bld clx negative 12/04/17 with completion of 6 week course of antibiotics - Monitor WBC, ESR, CRP weekly - Echocardiogram unable to rule out vegetations, family is unavailable for consent for TAHIR - Completed 6 week course of antibiotics Colonic Neoplasm - CT Abd/Pelvis showing colonic mass and hepatic lesions - GI consulted and following patient - Flex sig/colonoscopy refused by patient at this time - Family unable to be contacted for consent Ischemic Stroke - acute vs. subacute - ASA 81 mg - Lipitor 20mg - PT recommendations for JOSIAH DM2 - HgA1c is 7.4 - Continue ISS low - Metformin 500mg BID - Carb consistent diet HTN - Stable - Lisinopril 10mg Daily - Norvasc 10mg Daily Affective disorder - Celexa 10mg PO Daily - Seroquel HS - Clinically unchanged GI/DVT ppx - Protonix - SCDs Dispo: Patient lacks decision making capacity and is unable to comprehend his diagnosis, medical treatment, potential benefit and risk associated with and without treatment. Guardianship paperwork being processed followed by potential placement. Discussed with attending Dr. Iraj Alexis PGY2 <Sixto Galo - Last Filed: 02/10/18 12:57> Objective - Vital Signs/Intake and Output Vital Signs (last 24 hours): Temp Pulse Resp BP Pulse Ox 98.2 F 97 H 20 116/72 99 02/10/18 07:33 02/10/18 09:52 02/10/18 07:33 02/10/18 09:52 02/10/18 07:33 Intake and Output: 02/10/18 02/10/18 06:59 18:59 Intake Total 660 Balance 660 - Medications Medications: Current Medications Amlodipine Besylate (Norvasc) 10 mg PO DAILY [facility] Last Admin: 02/10/18 09:52 Dose: 10 mg Aspirin (Ecotrin) 81 mg PO DAILY [facility] Last Admin: 02/10/18 09:51 Dose: 81 mg Atorvastatin Calcium (Lipitor) 20 mg PO DIN [facility] Last Admin: 02/09/18 18:20 Dose: 20 mg Citalopram Hydrobromide (Celexa) 10 mg PO DAILY [facility] Last Admin: 02/10/18 09:51 Dose: 10 mg Enoxaparin Sodium (Lovenox) 40 mg SC DAILY [facility] PRN Reason: Protocol Last Admin: 01/30/18 10:11 Dose: 40 mg Folic Acid (Folic Acid) 1 mg PO DAILY [facility] Last Admin: 02/10/18 09:54 Dose: 1 mg Insulin Human Regular (Humulin R Low) 0 units SC ACHS [facility] PRN Reason: Protocol Last Admin: 02/10/18 08:20 Dose: 1 units Lisinopril (Zestril) 10 mg PO DAILY [facility] Last Admin: 02/10/18 09:52 Dose: 10 mg Metformin HCl (Glucophage) 500 mg PO BID [facility] Last Admin: 02/10/18 09:52 Dose: 500 mg Multivitamins/Minerals (Therapeutic-M Tab) 1 tab PO 0800 [facility] Last Admin: 02/10/18 08:20 Dose: 1 tab Pantoprazole Sodium (Protonix Ec Tab) 40 mg PO 0600 [facility] Last Admin: 02/10/18 05:39 Dose: 40 mg Quetiapine Fumarate (Seroquel) 12.5 mg PO HS PRN; Protocol PRN Reason: Agitation Thiamine HCl (Vitamin B1 Tab) 100 mg PO DAILY [facility] Last Admin: 02/10/18 09:52 Dose: 100 mg Zinc Sulfate (Zinc Sulfate 220 Mg Cap) 220 mg PO DAILY [facility] Last Admin: 02/10/18 09:52 Dose: 220 mg - Labs Labs: 02/02/18 06:00 02/02/18 06:00 PT 12.5 SECONDS (9.4-12.5) 12/09/17 10:00 INR 1.09 (0.93-1.08) H 12/09/17 10:00 APTT 28.3 Seconds (25.1-36.5) 11/30/17 05:30 Attending/Attestation - Attestation I have personally seen and examined this patient.: Yes I have fully participated in the care of the patient.: Yes I have reviewed all pertinent clinical information, including history, physical exam and plan: Yes Notes (Text): 02/10/18 12:55 57 year old male with no know past medical history who was admitted with altered mental status. He was initially treated for right hip cellulitis, pneumonia and flu earlier earlier during the admission. He was also found to have strep viridans bacteremia for which he has completed course of iv antibiotics. Echocardiogram could not rule out vegetations however family is not available to give consent for TAHIR. CT abd/pelvis showed colonic mass and liver lesions. At this time consent cannot be obtained for sigmoidoscopy or biopsy. He is on norvasc and lisinopril for hypertension and metformin and for diabetes. He is currently at his baseline mental status. Denies any new complaints. He was found to have acute/subacute CVA on MRI. He is on aspirin and statin. PT recommended JOSIAH. Patient continues to refuse to get OOBc or work with PT although this was encouraged. Case management and social insurance adviser are working on guardianship and disposition. Sixto Galo MD Hospitalist.
[2018-02-10] MEDS: Insulin Reg-LOW-Coverage SC SCH ×4 (08:20→22:39)
[2018-02-10] MEDS: Multivitamin With Minerals Tab PO SCH (08:20)
--- NOTE | 2018-02-10 15:30 | PN ---
DATE: 02/10/2018 SUBJECTIVE: The patient seen earlier today in 363. PHYSICAL EXAMINATION: VITAL SIGNS: Temperature is 98, blood pressure is 160/70, respiratory rate of 20, heart rate of 97. HEENT: Unremarkable. NECK: Supple. LUNGS: Have decreased breath sounds. HEART: Normal S1, S2. ABDOMEN: Soft, nontender. LABORATORY EXAMINATION: Noted. ASSESSMENT AND PLAN: A 57-year-old male who was seen earlier in 363, bed 1, status post sepsis due to Streptococcus viridans and coag-negative bacteremia, right gluteal and back cellulitis, status post multifocal healthcare-associated pneumonia on top of influenza A infection and has completed 42 days of antibiotics. Currently off of antibiotics, afebrile. He is at risk for developing nosocomial infections. Daniel Torres MD
[2018-02-11] MEDS: Pantoprazole 40 mg EC Tab PO SCH (05:28)
[2018-02-11] MEDS: Insulin Reg-LOW-Coverage SC SCH ×4 (08:08→22:11)
--- NOTE | 2018-02-11 09:18 | CP.PCM.PN ---
<NancyjeraldRocael garcia - Last Filed: 02/11/18 09:36> Subjective - Date & Time of Evaluation Date of Evaluation: 02/11/18 Time of Evaluation: 09:15 - Subjective Subjective: Patient seen and examined. No acute events overnight. Patient denies abdominal pain, chest pain, shortness of breath, diarrhea, constipation. Objective - Vital Signs/Intake and Output Vital Signs (last 24 hours): Temp Pulse Resp BP Pulse Ox 97 F L 100 H 20 130/86 96 02/11/18 08:03 02/11/18 08:03 02/11/18 08:03 02/11/18 08:03 02/11/18 08:03 Intake and Output: 02/11/18 02/11/18 06:59 18:59 Intake Total 660 Balance 660 - Medications Medications: Current Medications Amlodipine Besylate (Norvasc) 10 mg PO DAILY [facility] Last Admin: 02/10/18 09:52 Dose: 10 mg Aspirin (Ecotrin) 81 mg PO DAILY [facility] Last Admin: 02/10/18 09:51 Dose: 81 mg Atorvastatin Calcium (Lipitor) 20 mg PO DIN [facility] Last Admin: 02/10/18 18:40 Dose: 20 mg Citalopram Hydrobromide (Celexa) 10 mg PO DAILY [facility] Last Admin: 02/10/18 09:51 Dose: 10 mg Enoxaparin Sodium (Lovenox) 40 mg SC DAILY [facility] PRN Reason: Protocol Last Admin: 01/30/18 10:11 Dose: 40 mg Folic Acid (Folic Acid) 1 mg PO DAILY [facility] Last Admin: 02/10/18 09:54 Dose: 1 mg Insulin Human Regular (Humulin R Low) 0 units SC [facility] PRN Reason: Protocol Last Admin: 02/11/18 08:08 Dose: Not Given Lisinopril (Zestril) 10 mg PO DAILY [facility] Last Admin: 02/10/18 09:52 Dose: 10 mg Metformin HCl (Glucophage) 500 mg PO BID [facility] Last Admin: 02/10/18 18:40 Dose: 500 mg Multivitamins/Minerals (Therapeutic-M Tab) 1 tab PO 0800 [facility] Last Admin: 02/10/18 08:20 Dose: 1 tab Pantoprazole Sodium (Protonix Ec Tab) 40 mg PO 0600 [facility] Last Admin: 02/11/18 05:28 Dose: 40 mg Quetiapine Fumarate (Seroquel) 12.5 mg PO HS PRN; Protocol PRN Reason: Agitation Thiamine HCl (Vitamin B1 Tab) 100 mg PO DAILY [facility] Last Admin: 02/10/18 09:52 Dose: 100 mg Zinc Sulfate (Zinc Sulfate 220 Mg Cap) 220 mg PO DAILY [facility] Last Admin: 02/10/18 09:52 Dose: 220 mg - Labs Labs: 02/02/18 06:00 02/02/18 06:00 PT 12.5 SECONDS (9.4-12.5) 12/09/17 10:00 INR 1.09 (0.93-1.08) H 12/09/17 10:00 APTT 28.3 Seconds (25.1-36.5) 11/30/17 05:30 - Head Exam Head Exam: ATRAUMATIC, NORMAL INSPECTION, NORMOCEPHALIC - Eye Exam Eye Exam: EOMI, PERRL - Respiratory Exam Respiratory Exam: Clear to Ausculation Bilateral, NORMAL BREATHING PATTERN. absent: Rales, Rhonchi, Wheezes - Cardiovascular Exam Cardiovascular Exam: REGULAR RHYTHM, +S1, +S2 - GI/Abdominal Exam GI & Abdominal Exam: Soft, Normal Bowel Sounds. absent: Firm, Guarding, Rigid, Tenderness - Extremities Exam Extremities Exam: absent: Calf Tenderness, Pedal Edema Additional comments: DEE gilbert - Neurological Exam Neurological Exam: Alert, Awake - Psychiatric Exam Psychiatric exam: Flat Affect, Normal Mood - Skin Skin Exam: Dry, Warm Assessment and Plan - Assessment and Plan (Free Text) Assessment: 57yo male unknown PMHx admitted for AMS, right hip cellulitis, multifocal pneumonia, influenza A, strep viridians bacteremia with findings of stroke on MRI - acute vs. 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 Patient was treated for bacteremia with IV abx. Patient continues to refuse testing at this time. Guardianship establishment pending. Plan: AMS - resolved- currently at baseline mentation which waxes and wanes - Delirium precautions - Patient mentation clinically unchanged, able to answer simple questions with simple answers, poor insight - Likely secondary to depression vs. previous brain injury in form of metabolic encephalopathy vs residual stroke deficits Foul smelling stool - c. diff negative - Salmonella, shigella, Campylobacter isolated negative Stage I decubitus skin break down - Patient refuses to get out of bed to chair - Refusing activity with PT - Skin break down noticed on lateral posterior lower back/hip - Continue with Q2 turns Bacteremia with S. viridans/mitis and Coag negative Staph Bactermia - Last bld clx negative 12/04/17 with completion of 6 week course of antibiotics - Monitor WBC, ESR, CRP weekly - Echocardiogram unable to rule out vegetations, family is unavailable for consent for THAIR - Completed 6 week course of antibiotics Colonic Neoplasm - CT Abd/Pelvis showing colonic mass and hepatic lesions - GI consulted and following patient - Flex sig/colonoscopy refused by patient at this time - Family unable to be contacted for consent Ischemic Stroke - acute vs. subacute - ASA 81 mg - Lipitor 20mg - PT recommendations for JOSIAH DM2 - HgA1c is 7.4 - Continue ISS low - Metformin 500mg BID - Carb consistent diet HTN - Stable - Lisinopril 10mg Daily - Norvasc 10mg Daily Affective disorder - Celexa 10mg PO Daily - Seroquel HS - Clinically unchanged GI/DVT ppx - Protonix - SCDs Dispo: Patient lacks decision making capacity and is unable to comprehend his diagnosis, medical treatment, potential benefit and risk associated with and without treatment. Guardianship paperwork being processed followed by potential placement. Patient plan and discussed with attending, Dr. Galo <Sixto Galo - Last Filed: 02/11/18 11:07> Objective - Vital Signs/Intake and Output Vital Signs (last 24 hours): Temp Pulse Resp BP Pulse Ox 97 F L 100 H 20 130/86 96 02/11/18 08:03 02/11/18 08:03 02/11/18 08:03 02/11/18 09:41 02/11/18 08:03 Intake and Output: 02/11/18 02/11/18 06:59 18:59 Intake Total 660 Balance 660 - Medications Medications: Current Medications Amlodipine Besylate (Norvasc) 10 mg PO DAILY [facility] Last Admin: 02/11/18 09:41 Dose: 10 mg Aspirin (Ecotrin) 81 mg PO DAILY [facility] Last Admin: 02/11/18 09:41 Dose: 81 mg Atorvastatin Calcium (Lipitor) 20 mg PO DIN [facility] Last Admin: 02/10/18 18:40 Dose: 20 mg Citalopram Hydrobromide (Celexa) 10 mg PO DAILY [facility] Last Admin: 02/11/18 09:41 Dose: 10 mg Enoxaparin Sodium (Lovenox) 40 mg SC DAILY [facility] PRN Reason: Protocol Last Admin: 01/30/18 10:11 Dose: 40 mg Folic Acid (Folic Acid) 1 mg PO DAILY [facility] Last Admin: 02/11/18 09:41 Dose: 1 mg Insulin Human Regular (Humulin R Low) 0 units SC [facility] PRN Reason: Protocol Last Admin: 02/11/18 08:08 Dose: Not Given Lisinopril (Zestril) 10 mg PO DAILY [facility] Last Admin: 02/11/18 09:42 Dose: 10 mg Metformin HCl (Glucophage) 500 mg PO BID [facility] Last Admin: 02/11/18 09:41 Dose: 500 mg Multivitamins/Minerals (Therapeutic-M Tab) 1 tab PO 0800 [facility] Last Admin: 02/11/18 09:44 Dose: 1 tab Pantoprazole Sodium (Protonix Ec Tab) 40 mg PO 0600 [facility] Last Admin: 02/11/18 05:28 Dose: 40 mg Quetiapine Fumarate (Seroquel) 12.5 mg PO HS PRN; Protocol PRN Reason: Agitation Thiamine HCl (Vitamin B1 Tab) 100 mg PO DAILY [facility] Last Admin: 02/11/18 09:42 Dose: 100 mg Zinc Sulfate (Zinc Sulfate 220 Mg Cap) 220 mg PO DAILY [facility] Last Admin: 02/11/18 09:42 Dose: 220 mg - Labs Labs: 02/02/18 06:00 02/02/18 06:00 PT 12.5 SECONDS (9.4-12.5) 12/09/17 10:00 INR 1.09 (0.93-1.08) H 12/09/17 10:00 APTT 28.3 Seconds (25.1-36.5) 11/30/17 05:30 Attending/Attestation - Attestation I have personally seen and examined this patient.: Yes I have fully participated in the care of the patient.: Yes I have reviewed all pertinent clinical information, including history, physical exam and plan: Yes Notes (Text): 02/11/18 11:06 57 year old male with no know past medical history who was admitted with altered mental status. He was initially treated for right hip cellulitis, pneumonia and flu earlier earlier during the admission. He was also found to have strep viridans bacteremia for which he has completed course of iv antibiotics. Echocardiogram could not rule out vegetations however family is not available to give consent for TAHIR. CT abd/pelvis showed colonic mass and liver lesions. At this time consent cannot be obtained for sigmoidoscopy or biopsy. He is on norvasc and lisinopril for hypertension and metformin and for diabetes. He was found to have acute/subacute CVA on MRI. He is on aspirin and statin. PT recommended JOSIAH. Patient continues to refuse to get OOBc or work with PT although this was encouraged. Case management and social media marketing specialist are working on guardianship and disposition. Patient is stable with no overnight events. Sixto Galo MD Hospitalist.
[2018-02-11] MEDS: Multivitamin With Minerals Tab PO SCH (09:44)
--- NOTE | 2018-02-11 13:29 | CP.PCM.PN ---
Subjective - Date & Time of Evaluation Date of Evaluation: 02/11/18 Time of Evaluation: 10:55 - Subjective Subjective: No fevers, not in distress. Objective - Vital Signs/Intake and Output Vital Signs (last 24 hours): Temp Pulse Resp BP Pulse Ox 97 F L 100 H 20 130/86 96 02/11/18 08:03 02/11/18 08:03 02/11/18 08:03 02/11/18 09:41 02/11/18 08:03 Intake and Output: 02/11/18 02/11/18 06:59 18:59 Intake Total 660 480 Balance 660 480 - Medications Medications: Current Medications Amlodipine Besylate (Norvasc) 10 mg PO DAILY [facility] Last Admin: 02/11/18 09:41 Dose: 10 mg Aspirin (Ecotrin) 81 mg PO DAILY [facility] Last Admin: 02/11/18 09:41 Dose: 81 mg Atorvastatin Calcium (Lipitor) 20 mg PO DIN [facility] Last Admin: 02/10/18 18:40 Dose: 20 mg Citalopram Hydrobromide (Celexa) 10 mg PO DAILY [facility] Last Admin: 02/11/18 09:41 Dose: 10 mg Enoxaparin Sodium (Lovenox) 40 mg SC DAILY [facility] PRN Reason: Protocol Last Admin: 01/30/18 10:11 Dose: 40 mg Folic Acid (Folic Acid) 1 mg PO DAILY [facility] Last Admin: 02/11/18 09:41 Dose: 1 mg Insulin Human Regular (Humulin R Low) 0 units SC ACHS [facility] PRN Reason: Protocol Last Admin: 02/11/18 08:08 Dose: Not Given Lisinopril (Zestril) 10 mg PO DAILY [facility] Last Admin: 02/11/18 09:42 Dose: 10 mg Metformin HCl (Glucophage) 500 mg PO BID [facility] Last Admin: 02/11/18 09:41 Dose: 500 mg Multivitamins/Minerals (Therapeutic-M Tab) 1 tab PO 0800 [facility] Last Admin: 02/11/18 09:44 Dose: 1 tab Pantoprazole Sodium (Protonix Ec Tab) 40 mg PO 0600 [facility] Last Admin: 02/11/18 05:28 Dose: 40 mg Quetiapine Fumarate (Seroquel) 12.5 mg PO HS PRN; Protocol PRN Reason: Agitation Thiamine HCl (Vitamin B1 Tab) 100 mg PO DAILY [facility] Last Admin: 02/11/18 09:42 Dose: 100 mg Zinc Sulfate (Zinc Sulfate 220 Mg Cap) 220 mg PO DAILY [facility] Last Admin: 02/11/18 09:42 Dose: 220 mg - Labs Labs: 02/02/18 06:00 02/02/18 06:00 PT 12.5 SECONDS (9.4-12.5) 12/09/17 10:00 INR 1.09 (0.93-1.08) H 12/09/17 10:00 APTT 28.3 Seconds (25.1-36.5) 11/30/17 05:30 - Constitutional Appears: Non-toxic, Chronically Ill - Respiratory Exam Respiratory Exam: Decreased Breath Sounds - Cardiovascular Exam Cardiovascular Exam: +S1, +S2 - GI/Abdominal Exam GI & Abdominal Exam: Soft. absent: Tenderness Assessment and Plan - Assessment and Plan (Free Text) Plan: Assessment S/P sepsis due to strep viridans and CoNS bacteremia from right gluteal and back cellulitis S/P multifocal HCAP on top of Influenza A infection S/P Sammie infection of sacral area as well peripheral vascular disease Plan completed 42 days of antibiotics - continue to follow clinically off antibiotics since he is at risk for healthcare-associated infections
[2018-02-12] MEDS: Pantoprazole 40 mg EC Tab PO SCH (05:07)
--- NOTE | 2018-02-12 07:41 | CP.PCM.PN ---
<Estrella Justin - Last Filed: 02/12/18 11:38> Subjective - Date & Time of Evaluation Date of Evaluation: 02/12/18 Time of Evaluation: 07:40 - Subjective Subjective: Internal Medicine Progress Note: Patient seen and examined at bedside. Per nursing no acute events overnight. Patient offering no complaints at this time. Encourage patient to be out of bed to chair and participate in physical therapy. Denies headaches, dizziness, cp, palpitations, sob, abdominal pain, urinary symptoms. Objective - Vital Signs/Intake and Output Vital Signs (last 24 hours): Temp Pulse Resp BP Pulse Ox 97.6 F 99 H 20 109/68 93 L 02/11/18 16:00 02/11/18 16:00 02/11/18 16:00 02/11/18 16:00 02/11/18 16:00 Intake and Output: 02/12/18 02/12/18 06:59 18:59 Intake Total 620 Balance 620 - Medications Medications: Current Medications Amlodipine Besylate (Norvasc) 10 mg PO DAILY [facility] Last Admin: 02/11/18 09:41 Dose: 10 mg Aspirin (Ecotrin) 81 mg PO DAILY [facility] Last Admin: 02/11/18 09:41 Dose: 81 mg Atorvastatin Calcium (Lipitor) 20 mg PO DIN [facility] Last Admin: 02/11/18 17:24 Dose: 20 mg Citalopram Hydrobromide (Celexa) 10 mg PO DAILY [facility] Last Admin: 02/11/18 09:41 Dose: 10 mg Enoxaparin Sodium (Lovenox) 40 mg SC DAILY [facility] PRN Reason: Protocol Last Admin: 01/30/18 10:11 Dose: 40 mg Folic Acid (Folic Acid) 1 mg PO DAILY [facility] Last Admin: 02/11/18 09:41 Dose: 1 mg Insulin Human Regular (Humulin R Low) 0 units SC [facility] PRN Reason: Protocol Last Admin: 02/11/18 22:11 Dose: Not Given Lisinopril (Zestril) 10 mg PO DAILY [facility] Last Admin: 02/11/18 09:42 Dose: 10 mg Metformin HCl (Glucophage) 500 mg PO BID [facility] Last Admin: 02/11/18 17:22 Dose: 500 mg Multivitamins/Minerals (Therapeutic-M Tab) 1 tab PO 0800 [facility] Last Admin: 02/11/18 09:44 Dose: 1 tab Pantoprazole Sodium (Protonix Ec Tab) 40 mg PO 0600 [facility] Last Admin: 02/12/18 05:07 Dose: 40 mg Quetiapine Fumarate (Seroquel) 12.5 mg PO HS PRN; Protocol PRN Reason: Agitation Thiamine HCl (Vitamin B1 Tab) 100 mg PO DAILY [facility] Last Admin: 02/11/18 09:42 Dose: 100 mg Zinc Sulfate (Zinc Sulfate 220 Mg Cap) 220 mg PO DAILY [facility] Last Admin: 02/11/18 09:42 Dose: 220 mg - Labs Labs: 02/02/18 06:00 02/02/18 06:00 PT 12.5 SECONDS (9.4-12.5) 12/09/17 10:00 INR 1.09 (0.93-1.08) H 12/09/17 10:00 APTT 28.3 Seconds (25.1-36.5) 11/30/17 05:30 - Additional Findings Additional findings: - Head Exam Head Exam: ATRAUMATIC, NORMAL INSPECTION, NORMOCEPHALIC - Eye Exam Eye Exam: EOMI, PERRL - Respiratory Exam Respiratory Exam: Clear to Ausculation Bilateral, NORMAL BREATHING PATTERN. absent: Rales, Rhonchi, Wheezes - Cardiovascular Exam Cardiovascular Exam: REGULAR RHYTHM, +S1, +S2 - GI/Abdominal Exam GI & Abdominal Exam: Soft, Normal Bowel Sounds. absent: Firm, Guarding, Rigid, Tenderness - Extremities Exam Extremities Exam: absent: Calf Tenderness, Pedal Edema - Neurological Exam Neurological Exam: Alert, Awake - Psychiatric Exam Psychiatric exam: Flat Affect, Normal Mood - Skin Skin Exam: Dry, Warm Assessment and Plan - Assessment and Plan (Free Text) Assessment: 57yo male unknown PMHx admitted for AMS, right hip cellulitis, multifocal pneumonia, influenza A, strep viridians bacteremia with findings of stroke on MRI - acute vs. 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 Patient was treated for bacteremia with IV abx. Patient continues to refuse testing at this time. Guardianship establishment pending. Plan: AMS - resolved- currently at baseline mentation which waxes and wanes - Delirium precautions - Patient mentation clinically unchanged, able to answer simple questions with simple answers, poor insight - Likely secondary to depression vs. previous brain injury in form of metabolic encephalopathy vs residual stroke deficits - PT reordered to evaluate for deconditioning, patient still refusing to participate Foul smelling stool - c. diff negative - Salmonella, shigella, Campylobacter isolated negative Stage I decubitus skin break down - Patient refuses to get out of bed to chair - Refusing activity with PT - Skin break down noticed on lateral posterior lower back/hip - Continue with Q2 turns Bacteremia with S. viridans/mitis and Coag negative Staph Bactermia - Last bld clx negative 12/04/17 with completion of 6 week course of antibiotics - Monitor WBC, ESR, CRP weekly - Echocardiogram unable to rule out vegetations, family is unavailable for consent for TAHIR - Completed 6 week course of antibiotics Colonic Neoplasm - CT Abd/Pelvis showing colonic mass and hepatic lesions - GI consulted and following patient - Flex sig/colonoscopy refused by patient at this time - Family unable to be contacted for consent Ischemic Stroke - acute vs. subacute - ASA 81 mg - Lipitor 20mg - PT recommendations for JOSIAH DM2 - HgA1c is 7.4 - Continue ISS low - Metformin 500mg BID - Carb consistent diet HTN - Stable - Lisinopril 10mg Daily - Norvasc 10mg Daily Affective disorder - Celexa 10mg PO Daily - Seroquel HS - Clinically unchanged GI/DVT ppx - Protonix - SCDs Dispo: Patient lacks decision making capacity and is unable to comprehend his diagnosis, medical treatment, potential benefit and risk associated with and without treatment. Guardianship paperwork being processed followed by potential placement. Patient plan and discussed with attending, Dr. Galo <Sixto Galo - Last Filed: 02/13/18 07:42> Objective - Vital Signs/Intake and Output Vital Signs (last 24 hours): Temp Pulse Resp BP Pulse Ox 98.0 F 100 H 20 122/79 97 02/12/18 06:00 02/12/18 06:00 02/12/18 06:00 02/12/18 09:46 02/12/18 06:00 Intake and Output: 02/13/18 02/13/18 06:59 18:59 Intake Total 660 Balance 660 - Medications Medications: Current Medications Amlodipine Besylate (Norvasc) 10 mg PO DAILY [facility] Last Admin: 02/12/18 09:46 Dose: 10 mg Aspirin (Ecotrin) 81 mg PO DAILY [facility] Last Admin: 04/28/18 09:46 Dose: 81 mg Atorvastatin Calcium (Lipitor) 20 mg PO DIN [facility] Last Admin: 02/12/18 18:05 Dose: 20 mg Citalopram Hydrobromide (Celexa) 10 mg PO DAILY [facility] Last Admin: 02/12/18 09:46 Dose: 10 mg Enoxaparin Sodium (Lovenox) 40 mg SC DAILY [facility] PRN Reason: Protocol Last Admin: 01/30/18 10:11 Dose: 40 mg Folic Acid (Folic Acid) 1 mg PO DAILY [facility] Last Admin: 02/12/18 09:46 Dose: 1 mg Insulin Human Regular (Humulin R Low) 0 units SC [facility] PRN Reason: Protocol Last Admin: 02/12/18 21:59 Dose: Not Given Lisinopril (Zestril) 10 mg PO DAILY [facility] Last Admin: 02/12/18 09:47 Dose: 10 mg Metformin HCl (Glucophage) 500 mg PO BID [facility] Last Admin: 02/12/18 18:04 Dose: 500 mg Multivitamins/Minerals (Therapeutic-M Tab) 1 tab PO 0800 [facility] Last Admin: 02/12/18 09:49 Dose: 1 tab Pantoprazole Sodium (Protonix Ec Tab) 40 mg PO 0600 [facility] Last Admin: 02/13/18 05:52 Dose: 40 mg Quetiapine Fumarate (Seroquel) 12.5 mg PO HS PRN; Protocol PRN Reason: Agitation Thiamine HCl (Vitamin B1 Tab) 100 mg PO DAILY [facility] Last Admin: 02/12/18 09:47 Dose: 100 mg Zinc Sulfate (Zinc Sulfate 220 Mg Cap) 220 mg PO DAILY [facility] Last Admin: 02/12/18 09:47 Dose: 220 mg - Labs Labs: 02/02/18 06:00 02/02/18 06:00 PT 12.5 SECONDS (9.4-12.5) 12/09/17 10:00 INR 1.09 (0.93-1.08) H 12/09/17 10:00 APTT 28.3 Seconds (25.1-36.5) 11/30/17 05:30 Attending/Attestation - Attestation I have personally seen and examined this patient.: Yes I have fully participated in the care of the patient.: Yes I have reviewed all pertinent clinical information, including history, physical exam and plan: Yes Notes (Text): 02/12/18 57 year old male with no know past medical history who was admitted with altered mental status. He was initially treated for right hip cellulitis, pneumonia and flu earlier earlier during the admission. He was also found to have strep viridans bacteremia for which he has completed course of iv antibiotics. Echocardiogram could not rule out vegetations however family is not available to give consent for TAHIR. CT abd/pelvis showed colonic mass and liver lesions. At this time consent cannot be obtained for sigmoidoscopy or biopsy. He is on norvasc and lisinopril for hypertension and metformin and for diabetes. He was found to have acute/subacute CVA on MRI. He is on aspirin and statin. PT recommended JOSIAH. Patient continues to refuse to get OOBc or work with PT although this was encouraged. Case discussed with nurse. Will request for PT follow up. Case management and social sciences instructor are working on guardianship and disposition. Sixto Galo MD Hospitalist.
[2018-02-12] MEDS: Insulin Reg-LOW-Coverage SC SCH ×4 (08:19→21:59)
[2018-02-12] MEDS: Multivitamin With Minerals Tab PO SCH (09:49)
[2018-02-13] MEDS: Pantoprazole 40 mg EC Tab PO SCH (05:52)
[2018-02-13] MEDS: Multivitamin With Minerals Tab PO SCH (08:03)
[2018-02-13] MEDS: Insulin Reg-LOW-Coverage SC SCH ×4 (08:03→22:16)
--- NOTE | 2018-02-13 08:14 | CP.PCM.PN ---
<Estrella Justin - Last Filed: 02/13/18 11:23> Subjective - Date & Time of Evaluation Date of Evaluation: 02/13/18 Time of Evaluation: 08:14 - Subjective Subjective: Internal Medicine Progress Note: Patient seen and examined at bedside. Per nursing no acute events overnight. Patient offering no complaints. Denies headaches, dizziness, cp, palpitations, sob, abdominal pain, urinary symptoms, changes in bowel habits. Objective - Vital Signs/Intake and Output Vital Signs (last 24 hours): Temp Pulse Resp BP Pulse Ox 98.0 F 100 H 20 122/79 97 02/12/18 06:00 02/12/18 06:00 02/12/18 06:00 02/12/18 09:46 02/12/18 06:00 Intake and Output: 02/13/18 02/13/18 06:59 18:59 Intake Total 660 Balance 660 - Medications Medications: Current Medications Amlodipine Besylate (Norvasc) [address] [facility] Last Admin: 02/12/18 09:46 Dose: 10 mg Aspirin (Ecotrin) [address] [facility] Last Admin: 02/12/18 09:46 Dose: 81 mg Atorvastatin Calcium (Lipitor) [address] [facility] Last Admin: 02/12/18 18:05 Dose: 20 mg Citalopram Hydrobromide (Celexa) [address] [facility] Last Admin: 02/12/18 09:46 Dose: 10 mg Enoxaparin Sodium (Lovenox) [address] [facility] PRN Reason: Protocol Last Admin: 01/30/18 10:11 Dose: 40 mg Folic Acid (Folic Acid) [address] [facility] Last Admin: 02/12/18 09:46 Dose: 1 mg Insulin Human Regular (Humulin R Low) [address] [facility] PRN Reason: Protocol Last Admin: 02/13/18 08:03 Dose: Not Given Lisinopril (Zestril) [address] [facility] Last Admin: 02/12/18 09:47 Dose: 10 mg Metformin HCl (Glucophage) [address] [facility] Last Admin: 02/12/18 18:04 Dose: 500 mg Multivitamins/Minerals (Therapeutic-M Tab) [address] [facility] Last Admin: 02/13/18 08:03 Dose: 1 tab Pantoprazole Sodium (Protonix Ec Tab) [address] [facility] Last Admin: 02/13/18 05:52 Dose: 40 mg Quetiapine Fumarate (Seroquel) 12.5 mg PO HS PRN; Protocol PRN Reason: Agitation Thiamine HCl (Vitamin B1 Tab) [address] [facility] Last Admin: 02/12/18 09:47 Dose: 100 mg Zinc Sulfate (Zinc Sulfate 220 Mg Cap) [address] [facility] Last Admin: 02/12/18 09:47 Dose: 220 mg - Labs Labs: 02/02/18 06:00 02/02/18 06:00 PT 12.5 SECONDS (9.4-12.5) 12/09/17 10:00 INR 1.09 (0.93-1.08) H 12/09/17 10:00 APTT 28.3 Seconds (25.1-36.5) 11/30/17 05:30 - Additional Findings Additional findings: - Additional Findings Additional findings: - Head Exam Head Exam: ATRAUMATIC, NORMAL INSPECTION, NORMOCEPHALIC - Eye Exam Eye Exam: EOMI, PERRL - Respiratory Exam Respiratory Exam: Clear to Ausculation Bilateral, NORMAL BREATHING PATTERN. absent: Rales, Rhonchi, Wheezes - Cardiovascular Exam Cardiovascular Exam: REGULAR RHYTHM, +S1, +S2 - GI/Abdominal Exam GI & Abdominal Exam: Soft, Normal Bowel Sounds. absent: Firm, Guarding, Rigid, Tenderness - Extremities Exam Extremities Exam: absent: Calf Tenderness, Pedal Edema - Neurological Exam Neurological Exam: Alert, Awake - Psychiatric Exam Psychiatric exam: Flat Affect, Normal Mood - Skin Skin Exam: Dry, Warm Assessment and Plan - Assessment and Plan (Free Text) Assessment: 57yo male unknown PMHx admitted for AMS, right hip cellulitis, multifocal pneumonia, influenza A, strep viridians bacteremia with findings of stroke on MRI - acute vs. 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 Patient was treated for bacteremia with IV abx. Patient continues to refuse testing at this time. Guardianship establishment pending. Plan: AMS - resolved- currently at baseline mentation which waxes and wanes - Delirium precautions - Patient mentation clinically unchanged, able to answer simple questions with simple answers, poor insight - Likely secondary to depression vs. previous brain injury in form of metabolic encephalopathy vs residual stroke deficits - PT reordered to evaluate for deconditioning, patient still refusing to participate Foul smelling stool - c. diff negative - Salmonella, shigella, Campylobacter isolated negative Stage I decubitus skin break down - Patient refuses to get out of bed to chair - Refusing activity with PT - Skin break down noticed on lateral posterior lower back/hip - Continue with Q2 turns Bacteremia with S. viridans/mitis and Coag negative Staph Bactermia - Last bld clx negative 12/04/17 with completion of 6 week course of antibiotics - Monitor WBC, ESR, CRP weekly - Echocardiogram unable to rule out vegetations, family is unavailable for consent for TAHIR - Completed 6 week course of antibiotics Colonic Neoplasm - CT Abd/Pelvis showing colonic mass and hepatic lesions - GI consulted and following patient - Flex sig/colonoscopy refused by patient at this time - Family unable to be contacted for consent Ischemic Stroke - acute vs. subacute - ASA 81 mg - Lipitor 20mg - PT recommendations for JOSIAH DM2 - HgA1c is 7.4 - Continue ISS low - Metformin 500mg BID - Carb consistent diet HTN - Stable - Lisinopril 10mg Daily - Norvasc 10mg Daily Affective disorder - Celexa 10mg PO Daily - Seroquel HS - Clinically unchanged GI/DVT ppx - Protonix - SCDs Dispo: Patient lacks decision making capacity and is unable to comprehend his diagnosis, medical treatment, potential benefit and risk associated with and without treatment. Guardianship paperwork being processed followed by potential placement. Patient plan and discussed with attending, Dr. Galo <Sixto Galo - Last Filed: 02/13/18 11:39> Objective - Vital Signs/Intake and Output Vital Signs (last 24 hours): Temp Pulse Resp BP Pulse Ox 98.4 F 97 H 19 141/96 H 96 02/13/18 06:00 02/13/18 09:26 02/13/18 06:00 02/13/18 09:27 02/13/18 06:00 Intake and Output: 02/13/18 02/13/18 06:59 18:59 Intake Total 660 Balance 660 - Medications Medications: Current Medications Amlodipine Besylate (Norvasc) [address] [facility] Last Admin: 02/13/18 09:27 Dose: 10 mg Aspirin (Ecotrin) [address] [facility] Last Admin: 02/13/18 09:26 Dose: 81 mg Atorvastatin Calcium (Lipitor) [address] [facility] Last Admin: 02/12/18 18:05 Dose: 20 mg Citalopram Hydrobromide (Celexa) [address] [facility] Last Admin: 02/13/18 09:26 Dose: 10 mg Enoxaparin Sodium (Lovenox) [address] [facility] PRN Reason: Protocol Last Admin: 01/30/18 10:11 Dose: 40 mg Folic Acid (Folic Acid) [address] [facility] Last Admin: 02/13/18 09:26 Dose: 1 mg Insulin Human Regular (Humulin R Low) [address] [facility] PRN Reason: Protocol Last Admin: 02/13/18 08:03 Dose: Not Given Lisinopril (Zestril) [address] [facility] Last Admin: 02/13/18 09:26 Dose: 10 mg Metformin HCl (Glucophage) [address] [facility] Last Admin: 02/13/18 09:26 Dose: 500 mg Multivitamins/Minerals (Therapeutic-M Tab) [address] [facility] Last Admin: 02/13/18 08:03 Dose: 1 tab Pantoprazole Sodium (Protonix Ec Tab) [address] [facility] Last Admin: 02/13/18 05:52 Dose: 40 mg Quetiapine Fumarate (Seroquel) 12.5 mg PO HS PRN; Protocol PRN Reason: Agitation Thiamine HCl (Vitamin B1 Tab) [address] [facility] Last Admin: 02/13/18 09:26 Dose: 100 mg Zinc Sulfate (Zinc Sulfate 220 Mg Cap) [address] [facility] Last Admin: 02/13/18 09:26 Dose: 220 mg - Labs Labs: 02/02/18 06:00 02/02/18 06:00 PT 12.5 SECONDS (9.4-12.5) 12/09/17 10:00 INR 1.09 (0.93-1.08) H 12/09/17 10:00 APTT 28.3 Seconds (25.1-36.5) 11/30/17 05:30 Attending/Attestation - Attestation I have personally seen and examined this patient.: Yes I have fully participated in the care of the patient.: Yes I have reviewed all pertinent clinical information, including history, physical exam and plan: Yes Notes (Text): 02/13/18 11:38 57 year old male with no know past medical history who was admitted with altered mental status. He was initially treated for right hip cellulitis, pneumonia and flu earlier earlier during the admission. He was also found to have strep viridans bacteremia for which he has completed course of iv antibiotics. Echocardiogram could not rule out vegetations however family is not available to give consent for TAHIR. CT abd/pelvis showed colonic mass and liver lesions. At this time consent cannot be obtained for sigmoidoscopy or biopsy. He is on norvasc and lisinopril for hypertension and metformin and for diabetes. He was found to have acute/subacute CVA on MRI. He is on aspirin and statin. PT recommended JOSIAH. PT follow up was requested. Case management and social services aide are working on guardianship and disposition. Sixto Galo MD Hospitalist.
[2018-02-14] MEDS: Pantoprazole 40 mg EC Tab PO SCH (05:44)
[2018-02-14 06:51] LABS: HEMOGLOBIN 10.5 g/dL (14.0-18.0); MEAN CORPUSCULAR HEMOGLOBIN 28.4 pg (25.0-35.0); MEAN CORPUSCULAR HGB CONC 32.6 g/dl (31.0-37.0); MEAN PLATELET VOLUME 9.1 fl (7.0-11.0); RBC 3.7 10^6/uL (3.5-6.1); RED CELL DISTRIBUTION WIDTH 14.1 % (11.5-14.5); WHITE BLOOD COUNT 8.7 10^3/ul (4.5-11.0)
[2018-02-14 07:11] LABS: BLOOD UREA NITROGEN 16 mg/dL (7-21); CALCIUM 9.8 mg/dL (8.4-10.5); GFR NON-AFRICAN AMERICAN > 60
[2018-02-14] MEDS: Insulin Reg-LOW-Coverage SC SCH ×5 (07:56→22:20)
--- NOTE | 2018-02-14 08:34 | CP.PCM.PN ---
<Rocael Bowie - Last Filed: 02/15/18 06:27> Subjective - Date & Time of Evaluation Date of Evaluation: 02/14/18 Time of Evaluation: 08:32 - Subjective Subjective: Patient seen and examined this AM. No acute events overnight. Patient without complaints. Clinically unchanged. Objective - Vital Signs/Intake and Output Vital Signs (last 24 hours): Temp Pulse Resp BP Pulse Ox 98.2 F 95 H 20 132/79 95 02/14/18 08:19 02/14/18 08:19 02/14/18 08:19 02/14/18 08:19 02/14/18 08:19 Intake and Output: 02/14/18 02/14/18 06:59 18:59 Intake Total 600 Balance 600 - Medications Medications: Current Medications Amlodipine Besylate (Norvasc) 10 mg PO DAILY [facility] Last Admin: 02/13/18 09:27 Dose: 10 mg Aspirin (Ecotrin) 81 mg PO DAILY [facility] Last Admin: 02/13/18 09:26 Dose: 81 mg Atorvastatin Calcium (Lipitor) 20 mg PO DIN [facility] Last Admin: 02/13/18 16:59 Dose: 20 mg Citalopram Hydrobromide (Celexa) 10 mg PO DAILY [facility] Last Admin: 02/13/18 09:26 Dose: 10 mg Enoxaparin Sodium (Lovenox) 40 mg SC DAILY [facility] PRN Reason: Protocol Last Admin: 01/30/18 10:11 Dose: 40 mg Folic Acid (Folic Acid) 1 mg PO DAILY [facility] Last Admin: 02/13/18 09:26 Dose: 1 mg Insulin Human Regular (Humulin R Low) 0 units SC [facility] PRN Reason: Protocol Last Admin: 02/14/18 07:56 Dose: Not Given Lisinopril (Zestril) 10 mg PO DAILY [facility] Last Admin: 02/13/18 09:26 Dose: 10 mg Metformin HCl (Glucophage) 500 mg PO BID [facility] Last Admin: 02/13/18 17:00 Dose: 500 mg Multivitamins/Minerals (Therapeutic-M Tab) 1 tab PO 0800 [facility] Last Admin: 02/13/18 08:03 Dose: 1 tab Pantoprazole Sodium (Protonix Ec Tab) 40 mg PO 0600 [facility] Last Admin: 02/14/18 05:44 Dose: 40 mg Quetiapine Fumarate (Seroquel) 12.5 mg PO HS PRN; Protocol PRN Reason: Agitation Thiamine HCl (Vitamin B1 Tab) 100 mg PO DAILY [facility] Last Admin: 02/13/18 09:26 Dose: 100 mg Zinc Sulfate (Zinc Sulfate 220 Mg Cap) 220 mg PO DAILY [facility] Last Admin: 02/13/18 09:26 Dose: 220 mg - Labs Labs: 02/14/18 05:45 02/14/18 05:45 PT 12.5 SECONDS (9.4-12.5) 12/09/17 10:00 INR 1.09 (0.93-1.08) H 12/09/17 10:00 APTT 28.3 Seconds (25.1-36.5) 11/30/17 05:30 - Constitutional Appears: No Acute Distress - Head Exam Head Exam: ATRAUMATIC, NORMAL INSPECTION, NORMOCEPHALIC - Eye Exam Eye Exam: EOMI, PERRL - ENT Exam ENT Exam: Mucous Membranes Moist - Cardiovascular Exam Cardiovascular Exam: REGULAR RHYTHM, +S1, +S2 - GI/Abdominal Exam GI & Abdominal Exam: Soft, Normal Bowel Sounds. absent: Guarding, Rigid, Tenderness - Extremities Exam Extremities Exam: Normal Inspection. absent: Calf Tenderness, Pedal Edema Additional comments: Rigo hose stocking in place - Neurological Exam Neurological Exam: Alert, Awake - Psychiatric Exam Psychiatric exam: Flat Affect, Normal Mood - Skin Skin Exam: Dry, Warm Assessment and Plan - Assessment and Plan (Free Text) Assessment: 57yo male unknown PMHx admitted for AMS, right hip cellulitis, multifocal pneumonia, influenza A, strep viridians bacteremia with findings of stroke on MRI - acute vs. 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 Patient was treated for bacteremia with IV abx. Patient continues to refuse testing at this time. Guardianship establishment pending. Plan: AMS - resolved- currently at baseline mentation which waxes and wanes - Delirium precautions - Patient mentation clinically unchanged, able to answer simple questions with simple answers, poor insight - Likely secondary to depression vs. previous brain injury in form of metabolic encephalopathy vs residual stroke deficits - PT reordered to evaluate for deconditioning, patient still refusing to participate Foul smelling stool - c. diff negative - Salmonella, shigella, Campylobacter isolated negative Stage I decubitus skin break down - Patient refuses to get out of bed to chair - Refusing activity with PT - Skin break down noticed on lateral posterior lower back/hip - Continue with Q2 turns Bacteremia with S. viridans/mitis and Coag negative Staph Bactermia - Last bld clx negative 12/04/17 with completion of 6 week course of antibiotics - Monitor WBC, ESR, CRP weekly - Echocardiogram unable to rule out vegetations, family is unavailable for consent for TAHIR - Completed 6 week course of antibiotics Colonic Neoplasm - CT Abd/Pelvis showing colonic mass and hepatic lesions - GI consulted and following patient - Flex sig/colonoscopy refused by patient at this time - Family unable to be contacted for consent Ischemic Stroke - acute vs. subacute - ASA 81 mg - Lipitor 20mg - PT recommendations for JOSIAH DM2 - HgA1c is 7.4 - Continue ISS low - Metformin 500mg BID - Carb consistent diet HTN - Stable - Lisinopril 10mg Daily - Norvasc 10mg Daily Affective disorder - Celexa 10mg PO Daily - Seroquel HS - Reach out to Psych for medication review GI/DVT ppx - Protonix - SCDs Dispo: Patient lacks decision making capacity and is unable to comprehend his diagnosis, medical treatment, potential benefit and risk associated with and without treatment. Guardianship paperwork being processed followed by potential placement. Patient plan and case discussed with attending <Deanna Schumacher - Last Filed: 02/15/18 13:34> Objective - Vital Signs/Intake and Output Vital Signs (last 24 hours): Temp Pulse Resp BP Pulse Ox 97.6 F 73 20 120/78 97 02/15/18 08:21 02/15/18 11:26 02/15/18 08:21 02/15/18 11:27 02/15/18 08:21 Intake and Output: 02/15/18 02/15/18 06:59 18:59 Intake Total 120 Balance 120 - Medications Medications: Current Medications Amlodipine Besylate (Norvasc) 10 mg PO DAILY [facility] Last Admin: 02/15/18 11:27 Dose: 10 mg Aspirin (Ecotrin) 81 mg PO DAILY [facility] Last Admin: 02/15/18 11:28 Dose: 81 mg Atorvastatin Calcium (Lipitor) 20 mg PO DIN [facility] Last Admin: 02/14/18 17:16 Dose: 20 mg Citalopram Hydrobromide (Celexa) 10 mg PO DAILY [facility] Last Admin: 02/15/18 11:27 Dose: 10 mg Enoxaparin Sodium (Lovenox) 40 mg SC DAILY [facility] PRN Reason: Protocol Last Admin: 01/30/18 10:11 Dose: 40 mg Folic Acid (Folic Acid) 1 mg PO DAILY [facility] Last Admin: 02/15/18 11:27 Dose: 1 mg Insulin Human Regular (Humulin R Low) 0 units SC [facility] PRN Reason: Protocol Last Admin: 02/15/18 08:25 Dose: Not Given Lisinopril (Zestril) 10 mg PO DAILY [facility] Last Admin: 02/15/18 11:26 Dose: 10 mg Metformin HCl (Glucophage) 500 mg PO BID [facility] Last Admin: 02/15/18 11:27 Dose: 500 mg Multivitamins/Minerals (Therapeutic-M Tab) 1 tab PO 0800 [facility] Last Admin: 02/15/18 08:36 Dose: 1 tab Pantoprazole Sodium (Protonix Ec Tab) 40 mg PO 0600 [facility] Last Admin: 02/15/18 06:13 Dose: 40 mg Quetiapine Fumarate (Seroquel) 12.5 mg PO HS PRN; Protocol PRN Reason: Agitation Thiamine HCl (Vitamin B1 Tab) 100 mg PO DAILY [facility] Last Admin: 02/15/18 11:27 Dose: 100 mg Zinc Sulfate (Zinc Sulfate 220 Mg Cap) 220 mg PO DAILY [facility] Last Admin: 02/15/18 11:27 Dose: 220 mg - Labs Labs: 02/14/18 05:45 02/14/18 05:45 PT 12.5 SECONDS (9.4-12.5) 12/09/17 10:00 INR 1.09 (0.93-1.08) H 12/09/17 10:00 APTT 28.3 Seconds (25.1-36.5) 11/30/17 05:30 Attending/Attestation - Attestation I have personally seen and examined this patient.: Yes I have fully participated in the care of the patient.: Yes I have reviewed all pertinent clinical information, including history, physical exam and plan: Yes Notes (Text): 02/15/18 13:33 Medical record note made by the resident after discussion with my direction and input after the patient was personally seen and examined by me. I have reviewed the chart and agree that the record accurately reflects by personal performance of the history, physical exam, data review, and medical decision-making, in the course for the patient. I have also personally directed the plan of care
[2018-02-14] MEDS: Multivitamin With Minerals Tab PO SCH (09:39)
[2018-02-14 17:45] LABS: FOLATE > 20.0 ng/mL
[2018-02-15] MEDS: Pantoprazole 40 mg EC Tab PO SCH (06:13)
[2018-02-15] MEDS: Insulin Reg-LOW-Coverage SC SCH ×4 (08:25→22:07)
[2018-02-15] MEDS: Multivitamin With Minerals Tab PO SCH (08:36)
--- NOTE | 2018-02-15 10:25 | CP.PCM.PN ---
<Rocael Bowie - Last Filed: 02/15/18 10:19> Subjective - Date & Time of Evaluation Date of Evaluation: 02/15/18 Time of Evaluation: 10:19 - Subjective Subjective: Patient seen and evaluated this AM. No acute events reported overnight. Patient found to be resting comfortably in bed. Patient denies loose stool, abdominal pain, chest pain, shortness of breath. Objective - Vital Signs/Intake and Output Vital Signs (last 24 hours): Temp Pulse Resp BP Pulse Ox 97.6 F 93 H 20 120/78 97 02/15/18 08:21 02/15/18 08:21 02/15/18 08:21 02/15/18 08:21 02/15/18 08:21 Intake and Output: 02/15/18 02/15/18 06:59 18:59 Intake Total 120 Balance 120 - Medications Medications: Current Medications Amlodipine Besylate (Norvasc) 10 mg PO DAILY [facility] Last Admin: 02/14/18 09:39 Dose: 10 mg Aspirin (Ecotrin) 81 mg PO DAILY [facility] Last Admin: 02/14/18 09:39 Dose: 81 mg Atorvastatin Calcium (Lipitor) 20 mg PO DIN [facility] Last Admin: 02/14/18 17:16 Dose: 20 mg Citalopram Hydrobromide (Celexa) 10 mg PO DAILY [facility] Last Admin: 02/14/18 09:39 Dose: 10 mg Enoxaparin Sodium (Lovenox) 40 mg SC DAILY [facility] PRN Reason: Protocol Last Admin: 01/30/18 10:11 Dose: 40 mg Folic Acid (Folic Acid) 1 mg PO DAILY [facility] Last Admin: 02/14/18 09:39 Dose: 1 mg Insulin Human Regular (Humulin R Low) 0 units SC [facility] PRN Reason: Protocol Last Admin: 02/15/18 08:25 Dose: Not Given Lisinopril (Zestril) 10 mg PO DAILY [facility] Last Admin: 02/14/18 09:39 Dose: 10 mg Metformin HCl (Glucophage) 500 mg PO BID [facility] Last Admin: 02/14/18 17:17 Dose: 500 mg Multivitamins/Minerals (Therapeutic-M Tab) 1 tab PO 0800 [facility] Last Admin: 02/15/18 08:36 Dose: 1 tab Pantoprazole Sodium (Protonix Ec Tab) 40 mg PO 0600 [facility] Last Admin: 02/15/18 06:13 Dose: 40 mg Quetiapine Fumarate (Seroquel) 12.5 mg PO HS PRN; Protocol PRN Reason: Agitation Thiamine HCl (Vitamin B1 Tab) 100 mg PO DAILY [facility] Last Admin: 02/14/18 09:39 Dose: 100 mg Zinc Sulfate (Zinc Sulfate 220 Mg Cap) 220 mg PO DAILY [facility] Last Admin: 02/14/18 09:39 Dose: 220 mg - Labs Labs: 02/14/18 05:45 02/14/18 05:45 PT 12.5 SECONDS (9.4-12.5) 12/09/17 10:00 INR 1.09 (0.93-1.08) H 12/09/17 10:00 APTT 28.3 Seconds (25.1-36.5) 11/30/17 05:30 - Constitutional Appears: No Acute Distress - Head Exam Head Exam: ATRAUMATIC, NORMAL INSPECTION, NORMOCEPHALIC - Eye Exam Eye Exam: EOMI, PERRL - Respiratory Exam Respiratory Exam: Clear to Ausculation Bilateral, NORMAL BREATHING PATTERN. absent: Rales, Rhonchi, Wheezes - Cardiovascular Exam Cardiovascular Exam: REGULAR RHYTHM, +S1, +S2 - GI/Abdominal Exam GI & Abdominal Exam: Soft, Normal Bowel Sounds. absent: Distended, Firm, Guarding, Rigid, Tenderness - Extremities Exam Extremities Exam: Full ROM. absent: Pedal Edema Additional comments: patient with mild scabbing present on lower extremities likely secondary to friction rub from josh hose - Neurological Exam Neurological Exam: Alert, Awake, Oriented x3 - Psychiatric Exam Psychiatric exam: Flat Affect, Normal Mood - Skin Skin Exam: Dry, Warm Assessment and Plan - Assessment and Plan (Free Text) Assessment: 57yo male unknown PMHx admitted for AMS, right hip cellulitis, multifocal pneumonia, influenza A, strep viridians bacteremia with findings of stroke on MRI - acute vs. 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 Patient was treated for bacteremia with IV abx. Patient continues to refuse testing at this time. Guardianship establishment pending. Plan: AMS - resolved- currently at baseline mentation which waxes and wanes - Delirium precautions - Patient mentation clinically unchanged, able to answer simple questions with simple answers, poor insight - Likely secondary to depression vs. previous brain injury in form of metabolic encephalopathy vs residual stroke deficits - PT reordered to evaluate for deconditioning, patient still refusing to participate Stage I decubitus skin break down - Patient refuses to get out of bed to chair - Refusing activity with PT - Skin break down noticed on lateral posterior lower back/hip - Continue with Q2 turns Bacteremia with S. viridans/mitis and Coag negative Staph Bactermia - Last bld clx negative 12/04/17 with completion of 6 week course of antibiotics - Monitor WBC, ESR, CRP weekly - Echocardiogram unable to rule out vegetations, family is unavailable for consent for TAHIR - Completed 6 week course of antibiotics Colonic Neoplasm - CT Abd/Pelvis showing colonic mass and hepatic lesions - GI consulted and following patient - Flex sig/colonoscopy refused by patient at this time - Family unable to be contacted for consent Ischemic Stroke - acute vs. subacute - ASA 81 mg - Lipitor 20mg - PT recommendations for JOSIAH DM2 - HgA1c is 7.4 - Continue ISS low - Metformin 500mg BID - Carb consistent diet HTN - Stable - Lisinopril 10mg Daily - Norvasc 10mg Daily Affective disorder - Celexa 10mg PO Daily - Seroquel HS - await psych medication alteration GI/DVT ppx - Protonix - SCDs Dispo: Patient lacks decision making capacity and is unable to comprehend his diagnosis, medical treatment, potential benefit and risk associated with and without treatment. Guardianship paperwork being processed followed by potential placement. Patient plan and case discussed with attending <Deanna Schumacher - Last Filed: 02/15/18 13:34> Objective - Vital Signs/Intake and Output Vital Signs (last 24 hours): Temp Pulse Resp BP Pulse Ox 97.6 F 73 20 120/78 97 02/15/18 08:21 02/15/18 11:26 02/15/18 08:21 02/15/18 11:27 02/15/18 08:21 Intake and Output: 02/15/18 02/15/18 06:59 18:59 Intake Total 120 Balance 120 - Medications Medications: Current Medications Amlodipine Besylate (Norvasc) 10 mg PO DAILY [facility] Last Admin: 02/15/18 11:27 Dose: 10 mg Aspirin (Ecotrin) 81 mg PO DAILY [facility] Last Admin: 02/15/18 11:28 Dose: 81 mg Atorvastatin Calcium (Lipitor) 20 mg PO DIN [facility] Last Admin: 02/14/18 17:16 Dose: 20 mg Citalopram Hydrobromide (Celexa) 10 mg PO DAILY [facility] Last Admin: 02/15/18 11:27 Dose: 10 mg Enoxaparin Sodium (Lovenox) 40 mg SC DAILY [facility] PRN Reason: Protocol Last Admin: 01/30/18 10:11 Dose: 40 mg Folic Acid (Folic Acid) 1 mg PO DAILY [facility] Last Admin: 02/15/18 11:27 Dose: 1 mg Insulin Human Regular (Humulin R Low) 0 units SC [facility] PRN Reason: Protocol Last Admin: 02/15/18 08:25 Dose: Not Given Lisinopril (Zestril) 10 mg PO DAILY [facility] Last Admin: 02/15/18 11:26 Dose: 10 mg Metformin HCl (Glucophage) 500 mg PO BID [facility] Last Admin: 02/15/18 11:27 Dose: 500 mg Multivitamins/Minerals (Therapeutic-M Tab) 1 tab PO 0800 [facility] Last Admin: 02/15/18 08:36 Dose: 1 tab Pantoprazole Sodium (Protonix Ec Tab) 40 mg PO 0600 [facility] Last Admin: 02/15/18 06:13 Dose: 40 mg Quetiapine Fumarate (Seroquel) 12.5 mg PO HS PRN; Protocol PRN Reason: Agitation Thiamine HCl (Vitamin B1 Tab) 100 mg PO DAILY [facility] Last Admin: 02/15/18 11:27 Dose: 100 mg Zinc Sulfate (Zinc Sulfate 220 Mg Cap) 220 mg PO DAILY [facility] Last Admin: 02/15/18 11:27 Dose: 220 mg - Labs Labs: 02/14/18 05:45 02/14/18 05:45 PT 12.5 SECONDS (9.4-12.5) 12/09/17 10:00 INR 1.09 (0.93-1.08) H 12/09/17 10:00 APTT 28.3 Seconds (25.1-36.5) 11/30/17 05:30 Attending/Attestation - Attestation I have personally seen and examined this patient.: Yes I have fully participated in the care of the patient.: Yes I have reviewed all pertinent clinical information, including history, physical exam and plan: Yes Notes (Text): 02/15/18 13:34 Medical record note made by the resident after discussion with my direction and input after the patient was personally seen and examined by me. I have reviewed the chart and agree that the record accurately reflects by personal performance of the history, physical exam, data review, and medical decision-making, in the course for the patient. I have also personally directed the plan of care
[2018-02-16] MEDS: Pantoprazole 40 mg EC Tab PO SCH (05:54)
--- NOTE | 2018-02-16 08:16 | CP.PCM.PN ---
<NancydevinRocael - Last Filed: 02/16/18 08:14> Subjective - Date & Time of Evaluation Date of Evaluation: 02/16/18 Time of Evaluation: 07:00 - Subjective Subjective: Patient seen and examined this AM. No acute events reported overnight. No clinical change. Patient has no complaints or questions at this time. Objective - Vital Signs/Intake and Output Vital Signs (last 24 hours): Temp Pulse Resp BP Pulse Ox 98.1 F 94 H 20 124/68 96 02/16/18 07:55 02/16/18 07:55 02/16/18 07:55 02/16/18 07:55 02/16/18 07:55 Intake and Output: 02/16/18 02/16/18 06:59 18:59 Intake Total 120 Balance 120 - Medications Medications: Current Medications Amlodipine Besylate (Norvasc) 10 mg PO DAILY [facility] Last Admin: 02/15/18 11:27 Dose: 10 mg Aspirin (Ecotrin) 81 mg PO DAILY [facility] Last Admin: 02/15/18 11:28 Dose: 81 mg Atorvastatin Calcium (Lipitor) 20 mg PO DIN [facility] Last Admin: 02/15/18 18:31 Dose: 20 mg Citalopram Hydrobromide (Celexa) 10 mg PO DAILY [facility] Last Admin: 02/15/18 11:27 Dose: 10 mg Enoxaparin Sodium (Lovenox) 40 mg SC DAILY [facility] PRN Reason: Protocol Last Admin: 01/30/18 10:11 Dose: 40 mg Folic Acid (Folic Acid) 1 mg PO DAILY [facility] Last Admin: 02/15/18 11:27 Dose: 1 mg Insulin Human Regular (Humulin R Low) 0 units SC [facility] PRN Reason: Protocol Last Admin: 02/15/18 22:07 Dose: Not Given Lisinopril (Zestril) 10 mg PO DAILY [facility] Last Admin: 02/15/18 11:26 Dose: 10 mg Metformin HCl (Glucophage) 500 mg PO BID [facility] Last Admin: 02/15/18 18:31 Dose: 500 mg Multivitamins/Minerals (Therapeutic-M Tab) 1 tab PO 0800 [facility] Last Admin: 02/15/18 08:36 Dose: 1 tab Pantoprazole Sodium (Protonix Ec Tab) 40 mg PO 0600 [facility] Last Admin: 02/16/18 05:54 Dose: 40 mg Quetiapine Fumarate (Seroquel) 12.5 mg PO HS PRN; Protocol PRN Reason: Agitation Thiamine HCl (Vitamin B1 Tab) 100 mg PO DAILY [facility] Last Admin: 02/15/18 11:27 Dose: 100 mg Zinc Sulfate (Zinc Sulfate 220 Mg Cap) 220 mg PO DAILY [facility] Last Admin: 02/15/18 11:27 Dose: 220 mg - Labs Labs: 02/14/18 05:45 02/14/18 05:45 PT 12.5 SECONDS (9.4-12.5) 12/09/17 10:00 INR 1.09 (0.93-1.08) H 12/09/17 10:00 APTT 28.3 Seconds (25.1-36.5) 11/30/17 05:30 - Head Exam Head Exam: ATRAUMATIC, NORMAL INSPECTION, NORMOCEPHALIC - Eye Exam Eye Exam: EOMI, PERRL - ENT Exam ENT Exam: Mucous Membranes Moist - Neck Exam Neck Exam: Full ROM - Respiratory Exam Respiratory Exam: Clear to Ausculation Bilateral, NORMAL BREATHING PATTERN. absent: Rhonchi, Wheezes - Cardiovascular Exam Cardiovascular Exam: REGULAR RHYTHM, +S1, +S2 - GI/Abdominal Exam GI & Abdominal Exam: Soft, Normal Bowel Sounds. absent: Tenderness - Extremities Exam Extremities Exam: Normal Capillary Refill. absent: Calf Tenderness, Pedal Edema - Neurological Exam Neurological Exam: Alert, Awake Additional comments: motor and sensory grossly intact - Psychiatric Exam Psychiatric exam: Flat Affect, Normal Mood - Skin Skin Exam: Dry, Warm Assessment and Plan - Assessment and Plan (Free Text) Assessment: 57yo male unknown PMHx admitted for AMS, right hip cellulitis, multifocal pneumonia, influenza A, strep viridians bacteremia with findings of stroke on MRI - acute vs. 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 Patient was treated for bacteremia with IV abx. Patient continues to refuse testing at this time. Guardianship establishment pending. Plan: AMS - resolved- currently at baseline mentation which waxes and wanes - Delirium precautions - Patient mentation clinically unchanged, able to answer simple questions with simple answers, poor insight - Likely secondary to depression vs. previous brain injury in form of metabolic encephalopathy vs residual stroke deficits - PT reordered to evaluate for deconditioning, patient still refusing to participate Stage I decubitus skin break down - Patient refuses to get out of bed to chair - Refusing activity with PT - Skin break down noticed on lateral posterior lower back/hip - Continue with Q2 turns Bacteremia with S. viridans/mitis and Coag negative Staph Bactermia - Last bld clx negative 12/04/17 with completion of 6 week course of antibiotics - Monitor WBC, ESR, CRP weekly - Echocardiogram unable to rule out vegetations, family is unavailable for consent for TAHIR - Completed 6 week course of antibiotics Colonic Neoplasm - CT Abd/Pelvis showing colonic mass and hepatic lesions - GI consulted and following patient - Flex sig/colonoscopy refused by patient at this time - Family unable to be contacted for consent Ischemic Stroke - acute vs. subacute - ASA 81 mg - Lipitor 20mg - PT recommendationing JOSIAH DM2 - HgA1c is 7.4 - Continue ISS low - Metformin 500mg BID - Carb consistent diet HTN - Stable - Lisinopril 10mg Daily - Norvasc 10mg Daily Affective disorder - Celexa 10mg PO Daily - Seroquel HS - await psych medication alteration GI/DVT ppx - Protonix - SCDs Dispo: Patient lacks decision making capacity and is unable to comprehend his diagnosis, medical treatment, potential benefit and risk associated with and without treatment. Guardianship paperwork being processed followed by potential placement. Patient plan and case discussed with attending <Deanna Schumacher - Last Filed: 02/16/18 14:44> Objective - Vital Signs/Intake and Output Vital Signs (last 24 hours): Temp Pulse Resp BP Pulse Ox 98.1 F 94 H 20 124/68 96 02/16/18 07:55 02/16/18 10:57 02/16/18 07:55 02/16/18 10:57 02/16/18 07:55 Intake and Output: 02/16/18 02/16/18 06:59 18:59 Intake Total 1140 Balance 1140 - Medications Medications: Current Medications Amlodipine Besylate (Norvasc) 10 mg PO DAILY [facility] Last Admin: 02/16/18 10:57 Dose: 10 mg Aspirin (Ecotrin) 81 mg PO DAILY [facility] Last Admin: 02/16/18 10:57 Dose: 81 mg Atorvastatin Calcium (Lipitor) 20 mg PO DIN [facility] Last Admin: 02/15/18 18:31 Dose: 20 mg Citalopram Hydrobromide (Celexa) 10 mg PO DAILY [facility] Last Admin: 02/16/18 10:57 Dose: 10 mg Enoxaparin Sodium (Lovenox) 40 mg SC DAILY [facility] PRN Reason: Protocol Last Admin: 01/30/18 10:11 Dose: 40 mg Folic Acid (Folic Acid) 1 mg PO DAILY [facility] Last Admin: 02/16/18 10:57 Dose: 1 mg Insulin Human Regular (Humulin R Low) 0 units SC ACHS [facility] PRN Reason: Protocol Last Admin: 02/16/18 13:07 Dose: 2 units Lisinopril (Zestril) 10 mg PO DAILY [facility] Last Admin: 02/16/18 10:57 Dose: 10 mg Metformin HCl (Glucophage) 500 mg PO BID [facility] Last Admin: 02/16/18 10:57 Dose: 500 mg Multivitamins/Minerals (Therapeutic-M Tab) 1 tab PO 0800 [facility] Last Admin: 02/16/18 09:56 Dose: 1 tab Pantoprazole Sodium (Protonix Ec Tab) 40 mg PO 0600 [facility] Last Admin: 02/16/18 05:54 Dose: 40 mg Quetiapine Fumarate (Seroquel) 12.5 mg PO HS PRN; Protocol PRN Reason: Agitation Thiamine HCl (Vitamin B1 Tab) 100 mg PO DAILY [facility] Last Admin: 02/16/18 10:57 Dose: 100 mg Zinc Sulfate (Zinc Sulfate 220 Mg Cap) 220 mg PO DAILY [facility] Last Admin: 02/16/18 10:56 Dose: 220 mg - Labs Labs: 02/14/18 05:45 02/14/18 05:45 PT 12.5 SECONDS (9.4-12.5) 12/09/17 10:00 INR 1.09 (0.93-1.08) H 12/09/17 10:00 APTT 28.3 Seconds (25.1-36.5) 11/30/17 05:30 Attending/Attestation - Attestation I have personally seen and examined this patient.: Yes I have fully participated in the care of the patient.: Yes I have reviewed all pertinent clinical information, including history, physical exam and plan: Yes Notes (Text): 02/16/18 14:43 Medical record note made by the resident after discussion with my direction and input after the patient was personally seen and examined by me. I have reviewed the chart and agree that the record accurately reflects by personal performance of the history, physical exam, data review, and medical decision-making, in the course for the patient. I have also personally directed the plan of care. Patient is stable at his base line. Continue current treatment plan Encourage ambulation. Prognosis is guarded.
[2018-02-16] MEDS: Insulin Reg-LOW-Coverage SC SCH ×4 (08:23→22:11)
[2018-02-16] MEDS: Multivitamin With Minerals Tab PO SCH (09:56)
--- NOTE | 2018-02-16 17:06 | CP.PCM.PN ---
Subjective - Date & Time of Evaluation Date of Evaluation: 02/16/18 Time of Evaluation: 11:05 - Subjective Subjective: No fevers, not in distress. Objective - Vital Signs/Intake and Output Vital Signs (last 24 hours): Temp Pulse Resp BP Pulse Ox 98.1 F 94 H 20 124/68 96 02/16/18 07:55 02/16/18 07:55 02/16/18 07:55 02/16/18 07:55 02/16/18 07:55 Intake and Output: 02/16/18 02/16/18 06:59 18:59 Intake Total 120 Balance 120 - Medications Medications: Current Medications Amlodipine Besylate (Norvasc) 10 mg PO DAILY [facility] Last Admin: 02/15/18 11:27 Dose: 10 mg Aspirin (Ecotrin) 81 mg PO DAILY [facility] Last Admin: 02/15/18 11:28 Dose: 81 mg Atorvastatin Calcium (Lipitor) 20 mg PO DIN [facility] Last Admin: 02/15/18 18:31 Dose: 20 mg Citalopram Hydrobromide (Celexa) 10 mg PO DAILY [facility] Last Admin: 02/15/18 11:27 Dose: 10 mg Enoxaparin Sodium (Lovenox) 40 mg SC DAILY [facility] PRN Reason: Protocol Last Admin: 01/30/18 10:11 Dose: 40 mg Folic Acid (Folic Acid) 1 mg PO DAILY [facility] Last Admin: 02/15/18 11:27 Dose: 1 mg Insulin Human Regular (Humulin R Low) 0 units SC ACHS [facility] PRN Reason: Protocol Last Admin: 02/16/18 08:23 Dose: Not Given Lisinopril (Zestril) 10 mg PO DAILY [facility] Last Admin: 02/15/18 11:26 Dose: 10 mg Metformin HCl (Glucophage) 500 mg PO BID [facility] Last Admin: 02/15/18 18:31 Dose: 500 mg Multivitamins/Minerals (Therapeutic-M Tab) 1 tab PO 0800 [facility] Last Admin: 02/15/18 08:36 Dose: 1 tab Pantoprazole Sodium (Protonix Ec Tab) 40 mg PO 0600 [facility] Last Admin: 02/16/18 05:54 Dose: 40 mg Quetiapine Fumarate (Seroquel) 12.5 mg PO HS PRN; Protocol PRN Reason: Agitation Thiamine HCl (Vitamin B1 Tab) 100 mg PO DAILY [facility] Last Admin: 02/15/18 11:27 Dose: 100 mg Zinc Sulfate (Zinc Sulfate 220 Mg Cap) 220 mg PO DAILY [facility] Last Admin: 02/15/18 11:27 Dose: 220 mg - Labs Labs: 02/14/18 05:45 02/14/18 05:45 PT 12.5 SECONDS (9.4-12.5) 12/09/17 10:00 INR 1.09 (0.93-1.08) H 12/09/17 10:00 APTT 28.3 Seconds (25.1-36.5) 11/30/17 05:30 - Constitutional Appears: Chronically Ill - Head Exam Head Exam: NORMAL INSPECTION - Respiratory Exam Respiratory Exam: Decreased Breath Sounds - Cardiovascular Exam Cardiovascular Exam: +S1, +S2 - GI/Abdominal Exam GI & Abdominal Exam: Soft. absent: Tenderness Assessment and Plan - Assessment and Plan (Free Text) Plan: Assessment S/P sepsis due to strep viridans and CoNS bacteremia from right gluteal and back cellulitis S/P multifocal HCAP on top of Influenza A infection S/P Sammie infection of sacral area as well peripheral vascular disease Plan completed 42 days of antibiotics - continue to follow clinically off antibiotics since he is at risk for nosocomial infections
[2018-02-17] MEDS: Pantoprazole 40 mg EC Tab PO SCH (05:49)
[2018-02-17] MEDS: Insulin Reg-LOW-Coverage SC SCH ×4 (08:16→23:02)
[2018-02-17] MEDS: Multivitamin With Minerals Tab PO SCH (09:40)
--- NOTE | 2018-02-17 09:59 | CP.PCM.PN ---
<Rocael Bowie - Last Filed: 02/17/18 11:48> Subjective - Date & Time of Evaluation Date of Evaluation: 02/17/18 Time of Evaluation: 09:56 - Subjective Subjective: Patient seen and examined this AM. No acute events reported overnight. Patient has no complaints at this time. Clinically unchanged Objective - Vital Signs/Intake and Output Vital Signs (last 24 hours): Temp Pulse Resp BP Pulse Ox 97.2 F L 95 H 20 125/72 98 02/17/18 08:21 02/17/18 08:21 02/17/18 08:21 02/17/18 09:40 02/17/18 08:21 - Medications Medications: Current Medications Amlodipine Besylate (Norvasc) 10 mg PO DAILY [facility] Last Admin: 02/17/18 09:40 Dose: 10 mg Aspirin (Ecotrin) 81 mg PO DAILY [facility] Last Admin: 02/17/18 09:39 Dose: 81 mg Atorvastatin Calcium (Lipitor) 20 mg PO DIN [facility] Last Admin: 02/16/18 18:02 Dose: 20 mg Citalopram Hydrobromide (Celexa) 10 mg PO DAILY [facility] Last Admin: 02/17/18 09:39 Dose: 10 mg Enoxaparin Sodium (Lovenox) 40 mg SC DAILY [facility] PRN Reason: Protocol Last Admin: 01/30/18 10:11 Dose: 40 mg Folic Acid (Folic Acid) 1 mg PO DAILY [facility] Last Admin: 02/17/18 09:39 Dose: 1 mg Insulin Human Regular (Humulin R Low) 0 units SC [facility] PRN Reason: Protocol Last Admin: 02/17/18 08:16 Dose: Not Given Lisinopril (Zestril) 10 mg PO DAILY [facility] Last Admin: 02/17/18 09:40 Dose: 10 mg Metformin HCl (Glucophage) 500 mg PO BID [facility] Last Admin: 02/17/18 09:39 Dose: 500 mg Multivitamins/Minerals (Therapeutic-M Tab) 1 tab PO 0800 [facility] Last Admin: 02/17/18 09:40 Dose: 1 tab Pantoprazole Sodium (Protonix Ec Tab) 40 mg PO 0600 [facility] Last Admin: 02/17/18 05:49 Dose: 40 mg Quetiapine Fumarate (Seroquel) 12.5 mg PO HS PRN; Protocol PRN Reason: Agitation Thiamine HCl (Vitamin B1 Tab) 100 mg PO DAILY [facility] Last Admin: 02/16/18 10:57 Dose: 100 mg Zinc Sulfate (Zinc Sulfate 220 Mg Cap) 220 mg PO DAILY [facility] Last Admin: 02/17/18 09:40 Dose: 220 mg - Labs Labs: 02/14/18 05:45 02/14/18 05:45 PT 12.5 SECONDS (9.4-12.5) 12/09/17 10:00 INR 1.09 (0.93-1.08) H 12/09/17 10:00 APTT 28.3 Seconds (25.1-36.5) 11/30/17 05:30 - Constitutional Appears: No Acute Distress - Head Exam Head Exam: ATRAUMATIC, NORMAL INSPECTION, NORMOCEPHALIC - Eye Exam Eye Exam: EOMI, PERRL - ENT Exam ENT Exam: Mucous Membranes Moist - Respiratory Exam Respiratory Exam: Clear to Ausculation Bilateral, NORMAL BREATHING PATTERN. absent: Rales, Rhonchi, Wheezes - Cardiovascular Exam Cardiovascular Exam: REGULAR RHYTHM, +S1, +S2 - GI/Abdominal Exam GI & Abdominal Exam: Soft, Normal Bowel Sounds. absent: Firm, Guarding, Rigid, Tenderness - Extremities Exam Extremities Exam: Normal Capillary Refill. absent: Calf Tenderness, Pedal Edema - Back Exam Back Exam: Full ROM - Neurological Exam Neurological Exam: Alert, Awake Additional comments: motor and sensory grossly intact - Psychiatric Exam Psychiatric exam: Flat Affect, Normal Mood - Skin Skin Exam: Dry, Warm Assessment and Plan - Assessment and Plan (Free Text) Assessment: 57yo male unknown PMHx admitted for AMS, right hip cellulitis, multifocal pneumonia, influenza A, strep viridians bacteremia with findings of stroke on MRI - acute vs. 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 Patient was treated for bacteremia with IV abx. Patient continues to refuse testing at this time. Guardianship establishment pending. Plan: AMS - resolved- currently at baseline mentation which waxes and wanes - Delirium precautions - Patient mentation clinically unchanged, able to answer simple questions with simple answers, poor insight - Likely secondary to depression vs. previous brain injury in form of metabolic encephalopathy vs residual stroke deficits - PT reordered to evaluate for deconditioning, patient still refusing to participate Stage I decubitus skin break down - Patient refuses to get out of bed to chair - Refusing activity with PT - Skin break down noticed on lateral posterior lower back/hip - Continue with Q2 turns Bacteremia with S. viridans/mitis and Coag negative Staph Bactermia - Last bld clx negative 12/04/17 with completion of 6 week course of antibiotics - Monitor WBC, ESR, CRP weekly - Echocardiogram unable to rule out vegetations, family is unavailable for consent for TAHIR - Completed 6 week course of antibiotics Colonic Neoplasm - CT Abd/Pelvis showing colonic mass and hepatic lesions - GI consulted and following patient - Flex sig/colonoscopy refused by patient at this time - Family unable to be contacted for consent Ischemic Stroke - acute vs. subacute - ASA 81 mg - Lipitor 20mg - PT recommendationing JOSIAH DM2 - HgA1c is 7.4 - Continue ISS low - Metformin 500mg BID - Carb consistent diet HTN - Stable - Lisinopril 10mg Daily - Norvasc 10mg Daily Affective disorder - Celexa 10mg PO Daily - Seroquel HS - await psych medication alteration GI/DVT ppx - Protonix - SCDs Dispo: Patient lacks decision making capacity and is unable to comprehend his diagnosis, medical treatment, potential benefit and risk associated with and without treatment. Guardianship paperwork being processed followed by potential placement. Patient plan and case discussed with attending <Deanna Schumacher - Last Filed: 02/17/18 15:50> Objective - Vital Signs/Intake and Output Vital Signs (last 24 hours): Temp Pulse Resp BP Pulse Ox 97.2 F L 95 H 20 125/72 98 02/17/18 08:21 02/17/18 08:21 02/17/18 08:21 02/17/18 09:40 02/17/18 08:21 Intake and Output: 02/17/18 02/17/18 06:59 18:59 Intake Total 975 Balance 975 - Medications Medications: Current Medications Amlodipine Besylate (Norvasc) 10 mg PO DAILY [facility] Last Admin: 02/17/18 09:40 Dose: 10 mg Aspirin (Ecotrin) 81 mg PO DAILY [facility] Last Admin: 02/17/18 09:39 Dose: 81 mg Atorvastatin Calcium (Lipitor) 20 mg PO DIN [facility] Last Admin: 02/16/18 18:02 Dose: 20 mg Citalopram Hydrobromide (Celexa) 10 mg PO DAILY [facility] Last Admin: 02/17/18 09:39 Dose: 10 mg Enoxaparin Sodium (Lovenox) 40 mg SC DAILY [facility] PRN Reason: Protocol Last Admin: 01/30/18 10:11 Dose: 40 mg Folic Acid (Folic Acid) 1 mg PO DAILY [facility] Last Admin: 02/17/18 09:39 Dose: 1 mg Insulin Human Regular (Humulin R Low) 0 units SC ACHS [facility] PRN Reason: Protocol Last Admin: 02/17/18 12:55 Dose: Not Given Lisinopril (Zestril) 10 mg PO DAILY [facility] Last Admin: 02/17/18 09:40 Dose: 10 mg Metformin HCl (Glucophage) 500 mg PO BID [facility] Last Admin: 02/17/18 09:39 Dose: 500 mg Multivitamins/Minerals (Therapeutic-M Tab) 1 tab PO 0800 [facility] Last Admin: 02/17/18 09:40 Dose: 1 tab Pantoprazole Sodium (Protonix Ec Tab) 40 mg PO 0600 [facility] Last Admin: 02/17/18 05:49 Dose: 40 mg Quetiapine Fumarate (Seroquel) 12.5 mg PO HS PRN; Protocol PRN Reason: Agitation Thiamine HCl (Vitamin B1 Tab) 100 mg PO DAILY [facility] Last Admin: 02/17/18 10:20 Dose: 100 mg Zinc Sulfate (Zinc Sulfate 220 Mg Cap) 220 mg PO DAILY [facility] Last Admin: 02/17/18 09:40 Dose: 220 mg - Labs Labs: 02/14/18 05:45 02/14/18 05:45 PT 12.5 SECONDS (9.4-12.5) 12/09/17 10:00 INR 1.09 (0.93-1.08) H 12/09/17 10:00 APTT 28.3 Seconds (25.1-36.5) 11/30/17 05:30 Attending/Attestation - Attestation I have personally seen and examined this patient.: Yes I have fully participated in the care of the patient.: Yes I have reviewed all pertinent clinical information, including history, physical exam and plan: Yes Notes (Text): 02/17/18 15:50 Medical record note made by the resident after discussion with my direction and input after the patient was personally seen and examined by me. I have reviewed the chart and agree that the record accurately reflects by personal performance of the history, physical exam, data review, and medical decision-making, in the course for the patient. I have also personally directed the plan of care.
--- NOTE | 2018-02-17 20:46 | PN ---
DATE: 02/17/2018 SUBJECTIVE: The patient is in bed, in no acute distress, nontoxic. PHYSICAL EXAMINATION: VITAL SIGNS: Temperature is 97, blood pressure is 125/70, respiratory rate of 20, heart rate of 95. HEENT: Unremarkable. NECK: Supple. LUNGS: Have decreased breath sounds. HEART: Normal S1 and S2. ABDOMEN: Soft. LABORATORY DATA: Reveals a white count of 8.7, hemoglobin of 10. Chemistries are noted. Review of orders reveals the patient to be off of antibiotics. ASSESSMENT AND PLAN: This is a 57-year-old with sepsis due to Streptococcus viridans, coag-negative Staphylococcus bacteremia, right gluteal and back cellulitis, status post multifocal healthcare-associated pneumonia and influenza A infection and currently now has completed 42 days of antibiotics, now off of antibiotics, afebrile. The patient is at risk for developing nosocomial infections. Daniel Torres MD
[2018-02-18] MEDS: Pantoprazole 40 mg EC Tab PO SCH (06:36)
[2018-02-18] MEDS: Insulin Reg-LOW-Coverage SC SCH ×3 (08:18→17:52)
[2018-02-18] MEDS: Multivitamin With Minerals Tab PO SCH (09:46)
--- NOTE | 2018-02-18 11:59 | PN ---
DATE: 02/18/2018 SUBJECTIVE: Patient is in bed, in no acute distress, nontoxic. PHYSICAL EXAMINATION: VITAL SIGNS: Temperature is 98, blood pressure is 120/80, respiratory rate of 18, heart rate of 94. HEENT: Unremarkable. NECK: Supple. LUNGS: Have decreased breath sounds. HEART: Normal S1, S2. ABDOMEN: Soft, nontender. LABORATORY EXAMINATION: Reveals a white count of 8.7, hemoglobin of 10, platelets of 397. BUN of 16, creatinine of 0.5. ASSESSMENT AND PLAN: This is a 57-year-old with sepsis due to Streptococcus viridans and coag-negative Staphylococcus bacteremia, right gluteal and back cellulitis and status post multifocal healthcare-associated pneumonia, influenza infection, now currently has completed 42 days, currently off of antibiotics and he is at risk for developing nosocomial infection. Daniel Torres MD
--- NOTE | 2018-02-18 12:51 | CP.PCM.PN ---
<Rocael Bowie - Last Filed: 02/18/18 12:48> Subjective - Date & Time of Evaluation Date of Evaluation: 02/18/18 Time of Evaluation: 12:49 - Subjective Subjective: Patient seen and examined this AM. No acute events overnight. Patient denies chest pain, shortness of breath, abdominal pain, diarrhea, fever, constipation. Objective - Vital Signs/Intake and Output Vital Signs (last 24 hours): Temp Pulse Resp BP Pulse Ox 99.1 F 94 H 18 124/81 95 02/18/18 06:00 02/18/18 09:46 02/18/18 06:00 02/18/18 09:46 02/18/18 06:00 - Medications Medications: Current Medications Amlodipine Besylate (Norvasc) 10 mg PO DAILY [facility] Last Admin: 02/18/18 09:45 Dose: 10 mg Aspirin (Ecotrin) 81 mg PO DAILY [facility] Last Admin: 02/18/18 09:44 Dose: 81 mg Atorvastatin Calcium (Lipitor) 20 mg PO DIN [facility] Last Admin: 02/17/18 18:13 Dose: 20 mg Citalopram Hydrobromide (Celexa) 10 mg PO DAILY [facility] Last Admin: 02/18/18 09:44 Dose: 10 mg Enoxaparin Sodium (Lovenox) 40 mg SC DAILY [facility] PRN Reason: Protocol Last Admin: 01/30/18 10:11 Dose: 40 mg Folic Acid (Folic Acid) 1 mg PO DAILY [facility] Last Admin: 02/18/18 09:44 Dose: 1 mg Insulin Human Regular (Humulin R Low) 0 units SC ACHS [facility] PRN Reason: Protocol Last Admin: 02/18/18 08:18 Dose: Not Given Lisinopril (Zestril) 10 mg PO DAILY [facility] Last Admin: 02/18/18 09:46 Dose: 10 mg Metformin HCl (Glucophage) 500 mg PO BID [facility] Last Admin: 02/18/18 09:45 Dose: 500 mg Multivitamins/Minerals (Therapeutic-M Tab) 1 tab PO 0800 [facility] Last Admin: 02/18/18 09:46 Dose: 1 tab Pantoprazole Sodium (Protonix Ec Tab) 40 mg PO 0600 [facility] Last Admin: 02/18/18 06:36 Dose: 40 mg Quetiapine Fumarate (Seroquel) 12.5 mg PO HS PRN; Protocol PRN Reason: Agitation Thiamine HCl (Vitamin B1 Tab) 100 mg PO DAILY [facility] Last Admin: 02/18/18 09:46 Dose: 100 mg Zinc Sulfate (Zinc Sulfate 220 Mg Cap) 220 mg PO DAILY [facility] Last Admin: 02/18/18 09:47 Dose: 220 mg - Labs Labs: 02/14/18 05:45 02/14/18 05:45 PT 12.5 SECONDS (9.4-12.5) 12/09/17 10:00 INR 1.09 (0.93-1.08) H 12/09/17 10:00 APTT 28.3 Seconds (25.1-36.5) 11/30/17 05:30 - Constitutional Appears: No Acute Distress - Head Exam Head Exam: ATRAUMATIC, NORMAL INSPECTION, NORMOCEPHALIC - Eye Exam Eye Exam: EOMI, PERRL - ENT Exam ENT Exam: Mucous Membranes Moist - Respiratory Exam Respiratory Exam: Clear to Ausculation Bilateral, NORMAL BREATHING PATTERN. absent: Rhonchi, Wheezes - Cardiovascular Exam Cardiovascular Exam: REGULAR RHYTHM, +S1, +S2 - GI/Abdominal Exam GI & Abdominal Exam: Soft, Normal Bowel Sounds - Extremities Exam Extremities Exam: Normal Capillary Refill. absent: Calf Tenderness, Pedal Edema - Neurological Exam Neurological Exam: Alert, Awake Additional comments: Motor and sensory grossly intact - Psychiatric Exam Psychiatric exam: Flat Affect, Normal Mood - Skin Skin Exam: Dry, Warm Assessment and Plan - Assessment and Plan (Free Text) Assessment: 57yo male unknown PMHx admitted for AMS, right hip cellulitis, multifocal pneumonia, influenza A, strep viridians bacteremia with findings of stroke on MRI - acute vs. 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 Patient was treated for bacteremia with IV abx. Patient continues to refuse testing at this time. Guardianship establishment pending. Plan: AMS - resolved- currently at baseline mentation which waxes and wanes - Delirium precautions - Patient mentation clinically unchanged, able to answer simple questions with simple answers, poor insight - Likely secondary to depression vs. previous brain injury in form of metabolic encephalopathy vs residual stroke deficits - PT reordered to evaluate for deconditioning, patient still refusing to participate Stage I decubitus skin break down - Patient refuses to get out of bed to chair - Refusing activity with PT - Skin break down noticed on lateral posterior lower back/hip - Continue with Q2 turns Bacteremia with S. viridans/mitis and Coag negative Staph Bactermia - Last bld clx negative 12/04/17 with completion of 6 week course of antibiotics - Monitor WBC, ESR, CRP weekly - Echocardiogram unable to rule out vegetations, family is unavailable for consent for TAHIR - Completed 6 week course of antibiotics Colonic Neoplasm - CT Abd/Pelvis showing colonic mass and hepatic lesions - GI consulted and following patient - Flex sig/colonoscopy refused by patient at this time - Family unable to be contacted for consent Ischemic Stroke - acute vs. subacute - ASA 81 mg - Lipitor 20mg - PT recommendationing JOSIAH DM2 - HgA1c is 7.4 - Continue ISS low - Metformin 500mg BID - Carb consistent diet HTN - Stable - Lisinopril 10mg Daily - Norvasc 10mg Daily Affective disorder - Celexa 10mg PO Daily - Seroquel HS - await psych medication alteration GI/DVT ppx - Protonix - SCDs Dispo: Patient lacks decision making capacity and is unable to comprehend his diagnosis, medical treatment, potential benefit and risk associated with and without treatment. Guardianship paperwork being processed followed by potential placement. Patient plan and case discussed with attending <Deanna Schumacher - Last Filed: 02/18/18 17:19> Objective - Vital Signs/Intake and Output Vital Signs (last 24 hours): Temp Pulse Resp BP Pulse Ox 99.1 F 94 H 18 124/81 95 02/18/18 06:00 02/18/18 09:46 02/18/18 06:00 02/18/18 09:46 02/18/18 06:00 Intake and Output: 02/18/18 02/18/18 06:59 18:59 Intake Total 480 Balance 480 - Medications Medications: Current Medications Amlodipine Besylate (Norvasc) 10 mg PO DAILY [facility] Last Admin: 02/18/18 09:45 Dose: 10 mg Aspirin (Ecotrin) 81 mg PO DAILY [facility] Last Admin: 02/18/18 09:44 Dose: 81 mg Atorvastatin Calcium (Lipitor) 20 mg PO DIN [facility] Last Admin: 02/17/18 18:13 Dose: 20 mg Citalopram Hydrobromide (Celexa) 10 mg PO DAILY [facility] Last Admin: 02/18/18 09:44 Dose: 10 mg Enoxaparin Sodium (Lovenox) 40 mg SC DAILY [facility] PRN Reason: Protocol Last Admin: 01/30/18 10:11 Dose: 40 mg Folic Acid (Folic Acid) 1 mg PO DAILY [facility] Last Admin: 02/18/18 09:44 Dose: 1 mg Insulin Human Regular (Humulin R Low) 0 units SC ACHS [facility] PRN Reason: Protocol Last Admin: 02/18/18 11:30 Dose: 1 units Lisinopril (Zestril) 10 mg PO DAILY [facility] Last Admin: 02/18/18 09:46 Dose: 10 mg Metformin HCl (Glucophage) 500 mg PO BID [facility] Last Admin: 02/18/18 09:45 Dose: 500 mg Multivitamins/Minerals (Therapeutic-M Tab) 1 tab PO 0800 [facility] Last Admin: 02/18/18 09:46 Dose: 1 tab Pantoprazole Sodium (Protonix Ec Tab) 40 mg PO 0600 [facility] Last Admin: 02/18/18 06:36 Dose: 40 mg Quetiapine Fumarate (Seroquel) 12.5 mg PO HS PRN; Protocol PRN Reason: Agitation Thiamine HCl (Vitamin B1 Tab) 100 mg PO DAILY [facility] Last Admin: 02/18/18 09:46 Dose: 100 mg Zinc Sulfate (Zinc Sulfate 220 Mg Cap) 220 mg PO DAILY [facility] Last Admin: 02/18/18 09:47 Dose: 220 mg - Labs Labs: 02/14/18 05:45 02/14/18 05:45 PT 12.5 SECONDS (9.4-12.5) 12/09/17 10:00 INR 1.09 (0.93-1.08) H 12/09/17 10:00 APTT 28.3 Seconds (25.1-36.5) 11/30/17 05:30 Attending/Attestation - Attestation I have personally seen and examined this patient.: Yes I have fully participated in the care of the patient.: Yes I have reviewed all pertinent clinical information, including history, physical exam and plan: Yes Notes (Text): 02/18/18 17:18 Medical record note made by the resident after discussion with my direction and input after the patient was personally seen and examined by me. I have reviewed the chart and agree that the record accurately reflects by personal performance of the history, physical exam, data review, and medical decision-making, in the course for the patient. I have also personally directed the plan of care. Patient is stable at base line,Mental status is at base line.he is [facility].He need to be encouraged to ambulate and also need frequent change of position to avoid decubitus ulcer. Prognosis is guarded.
[2018-02-19] MEDS: Insulin Reg-LOW-Coverage SC SCH ×5 (00:04→21:31)
[2018-02-19] MEDS: Pantoprazole 40 mg EC Tab PO SCH (06:11)
--- NOTE | 2018-02-19 08:55 | CP.PCM.PN ---
<Estrella Justin - Last Filed: 02/19/18 11:14> Subjective - Date & Time of Evaluation Date of Evaluation: 02/19/18 Time of Evaluation: 08:54 - Subjective Subjective: Internal Medicine Progress Note: Patient seen and examined at bedside. Per nursing no acute events overnight. Patient offering no complaints. Encouraged patient to sit in the chair today. Denies headaches, dizziness, cp, palpitations, sob, abdominal pain, urinary symptoms. Objective - Vital Signs/Intake and Output Vital Signs (last 24 hours): Temp Pulse Resp BP Pulse Ox 97.4 F L 84 16 134/87 97 02/19/18 07:46 02/19/18 07:46 02/19/18 07:46 02/19/18 07:46 02/19/18 07:46 Intake and Output: 02/19/18 02/19/18 06:59 18:59 Intake Total 780 Balance 780 - Medications Medications: Current Medications Amlodipine Besylate (Norvasc) 10 mg PO DAILY [facility] Last Admin: 02/18/18 09:45 Dose: 10 mg Aspirin (Ecotrin) 81 mg PO DAILY [facility] Last Admin: 02/18/18 09:44 Dose: 81 mg Atorvastatin Calcium (Lipitor) 20 mg PO DIN [facility] Last Admin: 02/18/18 17:52 Dose: 20 mg Citalopram Hydrobromide (Celexa) 10 mg PO DAILY [facility] Last Admin: 02/18/18 09:44 Dose: 10 mg Enoxaparin Sodium (Lovenox) 40 mg SC DAILY [facility] PRN Reason: Protocol Last Admin: 01/30/18 10:11 Dose: 40 mg Folic Acid (Folic Acid) 1 mg PO DAILY [facility] Last Admin: 02/18/18 09:44 Dose: 1 mg Insulin Human Regular (Humulin R Low) 0 units SC [facility] PRN Reason: Protocol Last Admin: 02/19/18 00:04 Dose: Not Given Lisinopril (Zestril) 10 mg PO DAILY [facility] Last Admin: 02/18/18 09:46 Dose: 10 mg Metformin HCl (Glucophage) 500 mg PO BID [facility] Last Admin: 02/18/18 17:53 Dose: 500 mg Multivitamins/Minerals (Therapeutic-M Tab) 1 tab PO 0800 [facility] Last Admin: 02/18/18 09:46 Dose: 1 tab Pantoprazole Sodium (Protonix Ec Tab) 40 mg PO 0600 [facility] Last Admin: 02/19/18 06:11 Dose: 40 mg Quetiapine Fumarate (Seroquel) 12.5 mg PO HS PRN; Protocol PRN Reason: Agitation Thiamine HCl (Vitamin B1 Tab) 100 mg PO DAILY [facility] Last Admin: 02/18/18 09:46 Dose: 100 mg Zinc Sulfate (Zinc Sulfate 220 Mg Cap) 220 mg PO DAILY [facility] Last Admin: 02/18/18 09:47 Dose: 220 mg - Labs Labs: 02/14/18 05:45 02/14/18 05:45 PT 12.5 SECONDS (9.4-12.5) 12/09/17 10:00 INR 1.09 (0.93-1.08) H 12/09/17 10:00 APTT 28.3 Seconds (25.1-36.5) 11/30/17 05:30 - Additional Findings Additional findings: - Constitutional Appears: No Acute Distress - Head Exam Head Exam: ATRAUMATIC, NORMAL INSPECTION, NORMOCEPHALIC - Eye Exam Eye Exam: EOMI, PERRL - ENT Exam ENT Exam: Mucous Membranes Moist - Respiratory Exam Respiratory Exam: Clear to Ausculation Bilateral, NORMAL BREATHING PATTERN. absent: Rhonchi, Wheezes - Cardiovascular Exam Cardiovascular Exam: REGULAR RHYTHM, +S1, +S2 - GI/Abdominal Exam GI & Abdominal Exam: Soft, Normal Bowel Sounds - Extremities Exam Extremities Exam: Normal Capillary Refill. absent: Calf Tenderness, Pedal Edema - Neurological Exam Neurological Exam: Alert, Awake Additional comments: Motor and sensory grossly intact - Psychiatric Exam Psychiatric exam: Flat Affect, Normal Mood - Skin Skin Exam: Dry, Warm Assessment and Plan - Assessment and Plan (Free Text) Assessment: 57yo male unknown PMHx admitted for AMS, right hip cellulitis, multifocal pneumonia, influenza A, strep viridians bacteremia with findings of stroke on MRI - acute vs. 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 Patient was treated for bacteremia with IV abx. Patient continues to refuse testing at this time. Guardianship establishment pending. Plan: AMS - resolved- currently at baseline mentation which waxes and wanes - Delirium precautions - Patient mentation clinically unchanged, able to answer simple questions with simple answers, poor insight - Likely secondary to depression vs. previous brain injury in form of metabolic encephalopathy vs residual stroke deficits - PT reordered to evaluate for deconditioning, patient still refusing to participate Stage I decubitus skin break down - Patient refuses to get out of bed to chair - Refusing activity with PT - Skin break down noticed on lateral posterior lower back/hip - Continue with Q2 turns Bacteremia with S. viridans/mitis and Coag negative Staph Bactermia - Last bld clx negative 12/04/17 with completion of 6 week course of antibiotics - Monitor WBC, ESR, CRP weekly - Echocardiogram unable to rule out vegetations, family is unavailable for consent for TAHIR - Completed 6 week course of antibiotics Colonic Neoplasm - CT Abd/Pelvis showing colonic mass and hepatic lesions - GI consulted and following patient - Flex sig/colonoscopy refused by patient at this time - Family unable to be contacted for consent Ischemic Stroke - acute vs. subacute - ASA 81 mg - Lipitor 20mg - PT recommendationing JOSIAH DM2 - HgA1c is 7.4 - Continue ISS low - Metformin 500mg BID - Carb consistent diet HTN - Stable - Lisinopril 10mg Daily - Norvasc 10mg Daily Affective disorder - Celexa 10mg PO Daily - Seroquel HS - await psych medication alteration GI/DVT ppx - Protonix - SCDs Dispo: Patient lacks decision making capacity and is unable to comprehend his diagnosis, medical treatment, potential benefit and risk associated with and without treatment. Guardianship paperwork being processed followed by potential placement. Patient plan and case discussed with attending <Charlotte Lim - Last Filed: 02/19/18 13:29> Objective - Vital Signs/Intake and Output Vital Signs (last 24 hours): Temp Pulse Resp BP Pulse Ox 97.4 F L 84 16 125/86 97 02/19/18 07:46 02/19/18 07:46 02/19/18 07:46 02/19/18 09:30 02/19/18 07:46 Intake and Output: 02/19/18 02/19/18 06:59 18:59 Intake Total 780 Balance 780 - Medications Medications: Current Medications Amlodipine Besylate (Norvasc) 10 mg PO DAILY [facility] Last Admin: 02/19/18 09:30 Dose: 10 mg Aspirin (Ecotrin) 81 mg PO DAILY [facility] Last Admin: 02/19/18 09:30 Dose: 81 mg Atorvastatin Calcium (Lipitor) 20 mg PO DIN [facility] Last Admin: 02/18/18 17:52 Dose: 20 mg Citalopram Hydrobromide (Celexa) 10 mg PO DAILY [facility] Last Admin: 02/19/18 09:30 Dose: 10 mg Enoxaparin Sodium (Lovenox) 40 mg SC DAILY [facility] PRN Reason: Protocol Last Admin: 01/30/18 10:11 Dose: 40 mg Folic Acid (Folic Acid) 1 mg PO DAILY [facility] Last Admin: 02/19/18 09:30 Dose: 1 mg Insulin Human Regular (Humulin R Low) 0 units SC ACHS [facility] PRN Reason: Protocol Last Admin: 02/19/18 12:43 Dose: Not Given Lisinopril (Zestril) 10 mg PO DAILY [facility] Last Admin: 02/19/18 09:30 Dose: 10 mg Multivitamins/Minerals (Therapeutic-M Tab) 1 tab PO 0800 [facility] Last Admin: 02/19/18 09:30 Dose: 1 tab Pantoprazole Sodium (Protonix Ec Tab) 40 mg PO 0600 [facility] Last Admin: 02/19/18 06:11 Dose: 40 mg Quetiapine Fumarate (Seroquel) 12.5 mg PO HS PRN; Protocol PRN Reason: Agitation Thiamine HCl (Vitamin B1 Tab) 100 mg PO DAILY [facility] Last Admin: 02/19/18 09:30 Dose: 100 mg Zinc Sulfate (Zinc Sulfate 220 Mg Cap) 220 mg PO DAILY [facility] Last Admin: 02/19/18 09:30 Dose: 220 mg - Labs Labs: 02/14/18 05:45 02/14/18 05:45 PT 12.5 SECONDS (9.4-12.5) 12/09/17 10:00 INR 1.09 (0.93-1.08) H 12/09/17 10:00 APTT 28.3 Seconds (25.1-36.5) 11/30/17 05:30 Attending/Attestation - Attestation I have personally seen and examined this patient.: Yes I have fully participated in the care of the patient.: Yes I have reviewed all pertinent clinical information, including history, physical exam and plan: Yes Notes (Text): Patient is stable at base line. He is alert. Refusing to get out of the bed and participate in PT. Mental status is at base line. He is awaiting for guardianship paper work for placement. He need to be encouraged to ambulate and also need frequent change of position to avoid decubitus ulcer. Prognosis is guarded.
[2018-02-19] MEDS: Multivitamin With Minerals Tab PO SCH (09:30)
--- NOTE | 2018-02-19 16:12 | PN ---
DATE: 02/19/2018 SUBJECTIVE: The patient is in bed in no acute distress, nontoxic. PHYSICAL EXAMINATION: VITAL SIGNS: Temperature is 98, blood pressure is 125/80, respiratory rate of 19, heart rate of 102. HEENT: Unremarkable. NECK: Supple. LUNGS: Have decreased breath sounds. ABDOMEN: Soft, nontender. LABORATORY DATA: Reviewed. Review of orders reveals the patient to be off of antibiotics. ASSESSMENT AND PLAN: This is a 57-year-old with sepsis due to Streptococcus viridans and coag-negative Staphylococcus bacteremia, right gluteal and back cellulitis and status post multifocal healthcare-associated pneumonia, and influenza, infection, currently has completed 42 days of antibiotics, off of antibiotics, afebrile and risk for developing nosocomial infections. Daniel Torres MD
[2018-02-20] MEDS: Pantoprazole 40 mg EC Tab PO SCH (05:34)
--- NOTE | 2018-02-20 06:48 | CP.PCM.PN ---
<Estrella Justin - Last Filed: 02/20/18 12:05> Subjective - Date & Time of Evaluation Date of Evaluation: 02/20/18 Time of Evaluation: 06:47 - Subjective Subjective: Internal Medicine Progress Note: Patient seen and examined at bedside. Per nursing no acute events overnight. Patient is doing well, tolerating diet. Still refusing to sit in the chair. Denies headaches, dizziness, cp, palpitations, sob, abdominal pain, urinary symptoms. Objective - Vital Signs/Intake and Output Vital Signs (last 24 hours): Temp Pulse Resp BP Pulse Ox 97.8 F 87 20 111/70 97 02/19/18 16:00 02/19/18 16:00 02/19/18 16:00 02/19/18 16:00 02/19/18 16:00 Intake and Output: 02/19/18 02/20/18 18:59 06:59 Intake Total 925 1200 Balance 925 1200 - Medications Medications: Current Medications Amlodipine Besylate (Norvasc) 10 mg PO DAILY [facility] Last Admin: 02/19/18 09:30 Dose: 10 mg Aspirin (Ecotrin) 81 mg PO DAILY [facility] Last Admin: 02/19/18 09:30 Dose: 81 mg Atorvastatin Calcium (Lipitor) 20 mg PO DIN [facility] Last Admin: 02/19/18 17:55 Dose: 20 mg Citalopram Hydrobromide (Celexa) 10 mg PO DAILY [facility] Last Admin: 02/19/18 09:30 Dose: 10 mg Enoxaparin Sodium (Lovenox) 40 mg SC DAILY [facility] PRN Reason: Protocol Last Admin: 01/30/18 10:11 Dose: 40 mg Folic Acid (Folic Acid) 1 mg PO DAILY [facility] Last Admin: 02/19/18 09:30 Dose: 1 mg Insulin Human Regular (Humulin R Low) 0 units SC [facility] PRN Reason: Protocol Last Admin: 02/19/18 21:31 Dose: Not Given Lisinopril (Zestril) 10 mg PO DAILY [facility] Last Admin: 02/19/18 09:30 Dose: 10 mg Multivitamins/Minerals (Therapeutic-M Tab) 1 tab PO 0800 [facility] Last Admin: 02/19/18 09:30 Dose: 1 tab Pantoprazole Sodium (Protonix Ec Tab) 40 mg PO 0600 [facility] Last Admin: 02/20/18 05:34 Dose: 40 mg Quetiapine Fumarate (Seroquel) 12.5 mg PO HS PRN; Protocol PRN Reason: Agitation Thiamine HCl (Vitamin B1 Tab) 100 mg PO DAILY [facility] Last Admin: 02/19/18 09:30 Dose: 100 mg Zinc Sulfate (Zinc Sulfate 220 Mg Cap) 220 mg PO DAILY [facility] Last Admin: 02/19/18 09:30 Dose: 220 mg - Labs Labs: 02/14/18 05:45 02/14/18 05:45 PT 12.5 SECONDS (9.4-12.5) 12/09/17 10:00 INR 1.09 (0.93-1.08) H 12/09/17 10:00 APTT 28.3 Seconds (25.1-36.5) 11/30/17 05:30 - Additional Findings Additional findings: - Additional Findings Additional findings: - Constitutional Appears: No Acute Distress - Head Exam Head Exam: ATRAUMATIC, NORMAL INSPECTION, NORMOCEPHALIC - Eye Exam Eye Exam: EOMI, PERRL - ENT Exam ENT Exam: Mucous Membranes Moist - Respiratory Exam Respiratory Exam: Clear to Ausculation Bilateral, NORMAL BREATHING PATTERN. absent: Rhonchi, Wheezes - Cardiovascular Exam Cardiovascular Exam: REGULAR RHYTHM, +S1, +S2 - GI/Abdominal Exam GI & Abdominal Exam: Soft, Normal Bowel Sounds - Extremities Exam Extremities Exam: Normal Capillary Refill. absent: Calf Tenderness, Pedal Edema - Neurological Exam Neurological Exam: Alert, Awake Additional comments: Motor and sensory grossly intact - Psychiatric Exam Psychiatric exam: Flat Affect, Normal Mood - Skin Skin Exam: Dry, Warm Assessment and Plan - Assessment and Plan (Free Text) Assessment: 57yo male unknown PMHx admitted for AMS, right hip cellulitis, multifocal pneumonia, influenza A, strep viridians bacteremia with findings of stroke on MRI - acute vs. 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 Patient was treated for bacteremia with IV abx. Patient continues to refuse testing at this time. Guardianship establishment pending. Plan: AMS - resolved- currently at baseline mentation which waxes and wanes - Delirium precautions - Patient mentation clinically unchanged, able to answer simple questions with simple answers, poor insight - Likely secondary to depression vs. previous brain injury in form of metabolic encephalopathy vs residual stroke deficits - PT reordered to evaluate for deconditioning, patient still refusing to participate Stage I decubitus skin break down - Patient refuses to get out of bed to chair - Refusing activity with PT - Skin break down noticed on lateral posterior lower back/hip - Continue with Q2 turns - Folica acid, Thiamine, Zinc daily Bacteremia with S. viridans/mitis and Coag negative Staph Bactermia - Last bld clx negative 12/04/17 with completion of 6 week course of antibiotics - Monitor WBC, ESR, CRP weekly - Echocardiogram unable to rule out vegetations, family is unavailable for consent for TAHIR - Completed 6 week course of antibiotics Colonic Neoplasm - CT Abd/Pelvis showing colonic mass and hepatic lesions - GI consulted and following patient - Flex sig/colonoscopy refused by patient at this time - Family unable to be contacted for consent Ischemic Stroke - acute vs. subacute - ASA 81 mg - Lipitor 20mg - PT recommendationing JOSIAH DM2 - HgA1c is 7.4 - Continue ISS low - Metformin 500mg BID - Carb consistent diet HTN - Stable - Lisinopril 10mg Daily - Norvasc 10mg Daily Affective disorder - Celexa 10mg PO Daily - Seroquel HS - await psych medication alteration GI/DVT ppx - Protonix - SCDs Dispo: Patient lacks decision making capacity and is unable to comprehend his diagnosis, medical treatment, potential benefit and risk associated with and without treatment. Guardianship paperwork being processed followed by potential placement. Patient plan and case discussed with Dr Lim <Charlotte Lim B - Last Filed: 02/20/18 12:56> Objective - Vital Signs/Intake and Output Vital Signs (last 24 hours): Temp Pulse Resp BP Pulse Ox 98.4 F 96 H 20 122/76 94 L 02/20/18 07:37 02/20/18 07:37 02/20/18 07:37 02/20/18 09:55 02/20/18 07:37 Intake and Output: 02/20/18 02/20/18 06:59 18:59 Intake Total 1200 Balance 1200 - Medications Medications: Current Medications Amlodipine Besylate (Norvasc) 10 mg PO DAILY [facility] Last Admin: 02/20/18 09:55 Dose: 10 mg Aspirin (Ecotrin) 81 mg PO DAILY [facility] Last Admin: 02/20/18 09:54 Dose: 81 mg Atorvastatin Calcium (Lipitor) 20 mg PO DIN [facility] Last Admin: 02/19/18 17:55 Dose: 20 mg Citalopram Hydrobromide (Celexa) 10 mg PO DAILY [facility] Last Admin: 02/20/18 09:54 Dose: 10 mg Enoxaparin Sodium (Lovenox) 40 mg SC DAILY [facility] PRN Reason: Protocol Last Admin: 01/30/18 10:11 Dose: 40 mg Folic Acid (Folic Acid) 1 mg PO DAILY [facility] Last Admin: 02/20/18 09:54 Dose: 1 mg Insulin Human Regular (Humulin R Low) 0 units SC ACHS [facility] PRN Reason: Protocol Last Admin: 02/20/18 08:53 Dose: Not Given Lisinopril (Zestril) 10 mg PO DAILY [facility] Last Admin: 02/20/18 09:55 Dose: 10 mg Metformin HCl (Glucophage) 500 mg PO BID [facility] Multivitamins/Minerals (Therapeutic-M Tab) 1 tab PO 0800 [facility] Last Admin: 02/20/18 09:55 Dose: 1 tab Pantoprazole Sodium (Protonix Ec Tab) 40 mg PO 0600 [facility] Last Admin: 02/20/18 05:34 Dose: 40 mg Quetiapine Fumarate (Seroquel) 12.5 mg PO HS PRN; Protocol PRN Reason: Agitation Thiamine HCl (Vitamin B1 Tab) 100 mg PO DAILY [facility] Last Admin: 02/20/18 09:55 Dose: 100 mg Zinc Sulfate (Zinc Sulfate 220 Mg Cap) 220 mg PO DAILY [facility] Last Admin: 02/20/18 09:55 Dose: 220 mg - Labs Labs: 02/14/18 05:45 02/14/18 05:45 PT 12.5 SECONDS (9.4-12.5) 12/09/17 10:00 INR 1.09 (0.93-1.08) H 12/09/17 10:00 APTT 28.3 Seconds (25.1-36.5) 11/30/17 05:30 Attending/Attestation - Attestation I have personally seen and examined this patient.: Yes I have fully participated in the care of the patient.: Yes I have reviewed all pertinent clinical information, including history, physical exam and plan: Yes Notes (Text): Patient is stable at base line. He is alert. Refusing to get out of the bed and participate in PT. Mental status is at base line. He is awaiting for guardianship paper work for placement. He need to be encouraged to ambulate and also need frequent change of position to avoid decubitus ulcer. Encourage incentive spirometry. Prognosis is guarded. Upon discharge patient will follow up with PMD of choice.
[2018-02-20] MEDS: Insulin Reg-LOW-Coverage SC SCH ×4 (08:53→21:57)
--- NOTE | 2018-02-20 09:38 | PN ---
DATE: 02/20/2018 SUBJECTIVE: The patient is in bed, in no acute distress, nontoxic. PHYSICAL EXAMINATION: VITAL SIGNS: Temperature is 98, blood pressure is 120/70, respiratory rate of 16. HEENT: Examination of HEENT is unremarkable. NECK: Supple. LUNGS: Have decreased breath sounds. HEART: Normal S1, S2. ABDOMEN: Soft. LABORATORY DATA: Laboratory examination reviewed. ASSESSMENT AND PLAN: A 57-year-old male, who was admitted with sepsis due to Streptococcus viridans and coag-negative bacteremia, right gluteal and back cellulitis, status post multifocal healthcare-associated pneumonia and influenza infection. Currently has completed 42 days of antibiotics and risk for developing nosocomial infections. We will follow closely with you. Daniel Torres MD
[2018-02-20] MEDS: Multivitamin With Minerals Tab PO SCH (09:55)
[2018-02-21] MEDS: Pantoprazole 40 mg EC Tab PO SCH (05:42)
[2018-02-21 06:49] LABS: HEMOGLOBIN 10.6 g/dL (14.0-18.0); MEAN CELL VOLUME 86.4 fl (80.0-105.0); MEAN CORPUSCULAR HEMOGLOBIN 28.3 pg (25.0-35.0); MEAN CORPUSCULAR HGB CONC 32.7 g/dl (31.0-37.0); MEAN PLATELET VOLUME 9.1 fl (7.0-11.0); RBC 3.75 10^6/uL (3.5-6.1); WHITE BLOOD COUNT 8.7 10^3/ul (4.5-11.0)
[2018-02-21 06:59] LABS: BLOOD UREA NITROGEN 17 mg/dL (7-21); CALCIUM 9.5 mg/dL (8.4-10.5); GFR NON-AFRICAN AMERICAN > 60
[2018-02-21] MEDS: Insulin Reg-LOW-Coverage SC SCH ×4 (08:36→22:08)
[2018-02-21] MEDS: Multivitamin With Minerals Tab PO SCH (09:02)
--- NOTE | 2018-02-21 12:01 | CP.PCM.PN ---
<Ady Long - Last Filed: 02/21/18 11:58> Subjective - Date & Time of Evaluation Date of Evaluation: 02/21/18 Time of Evaluation: 11:58 - Subjective Subjective: Patient seen and examined at bedside. Doing well with no complaints at this time. Denies any chest pain, SOB, diarrhea, nausea, vomiting. Objective - Vital Signs/Intake and Output Vital Signs (last 24 hours): Temp Pulse Resp BP Pulse Ox 98 F 94 H 18 122/82 95 02/21/18 07:41 02/21/18 07:41 02/21/18 07:41 02/21/18 09:02 02/21/18 07:41 Intake and Output: 02/21/18 02/21/18 06:59 18:59 Intake Total 840 Balance 840 - Medications Medications: Current Medications Amlodipine Besylate (Norvasc) 10 mg PO DAILY [facility] Last Admin: 02/21/18 09:02 Dose: 10 mg Aspirin (Ecotrin) 81 mg PO DAILY [facility] Last Admin: 02/21/18 09:01 Dose: 81 mg Atorvastatin Calcium (Lipitor) 20 mg PO DIN [facility] Last Admin: 02/20/18 17:35 Dose: 20 mg Citalopram Hydrobromide (Celexa) 10 mg PO DAILY [facility] Last Admin: 02/21/18 09:01 Dose: 10 mg Enoxaparin Sodium (Lovenox) 40 mg SC DAILY [facility] PRN Reason: Protocol Last Admin: 01/30/18 10:11 Dose: 40 mg Folic Acid (Folic Acid) 1 mg PO DAILY [facility] Last Admin: 02/21/18 09:01 Dose: 1 mg Insulin Human Regular (Humulin R Low) 0 units SC [facility] PRN Reason: Protocol Last Admin: 02/21/18 08:36 Dose: Not Given Lisinopril (Zestril) 10 mg PO DAILY [facility] Last Admin: 02/21/18 09:02 Dose: 10 mg Metformin HCl (Glucophage) 500 mg PO BID [facility] Last Admin: 02/21/18 09:01 Dose: 500 mg Multivitamins/Minerals (Therapeutic-M Tab) 1 tab PO 0800 [facility] Last Admin: 02/21/18 09:02 Dose: 1 tab Pantoprazole Sodium (Protonix Ec Tab) 40 mg PO 0600 [facility] Last Admin: 02/21/18 05:42 Dose: 40 mg Quetiapine Fumarate (Seroquel) 12.5 mg PO HS PRN; Protocol PRN Reason: Agitation Thiamine HCl (Vitamin B1 Tab) 100 mg PO DAILY [facility] Last Admin: 02/21/18 09:02 Dose: 100 mg Zinc Sulfate (Zinc Sulfate 220 Mg Cap) 220 mg PO DAILY [facility] Last Admin: 02/21/18 09:02 Dose: 220 mg - Labs Labs: 02/21/18 05:30 02/21/18 05:30 PT 12.5 SECONDS (9.4-12.5) 12/09/17 10:00 INR 1.09 (0.93-1.08) H 12/09/17 10:00 APTT 28.3 Seconds (25.1-36.5) 11/30/17 05:30 - Constitutional Appears: Well - Head Exam Head Exam: ATRAUMATIC, NORMAL INSPECTION, NORMOCEPHALIC - Eye Exam Eye Exam: EOMI, Normal appearance, PERRL Pupil Exam: NORMAL ACCOMODATION, PERRL - ENT Exam ENT Exam: Mucous Membranes Moist, Normal Exam - Neck Exam Neck Exam: Full ROM, Normal Inspection. absent: Lymphadenopathy - Respiratory Exam Respiratory Exam: Clear to Ausculation Bilateral, NORMAL BREATHING PATTERN - Cardiovascular Exam Cardiovascular Exam: REGULAR RHYTHM, +S1, +S2. absent: Murmur - GI/Abdominal Exam GI & Abdominal Exam: Soft, Normal Bowel Sounds. absent: Tenderness - Extremities Exam Extremities Exam: Full ROM, Normal Capillary Refill, Normal Inspection. absent : Joint Swelling, Pedal Edema - Back Exam Back Exam: NORMAL INSPECTION - Neurological Exam Neurological Exam: Alert, Awake, CN II-XII Intact, Normal Gait, Oriented x3 - Psychiatric Exam Psychiatric exam: Normal Affect, Normal Mood - Skin Skin Exam: Dry, Intact, Normal Color, Warm Assessment and Plan - Assessment and Plan (Free Text) Assessment: 57yo male unknown PMHx admitted for AMS, right hip cellulitis, multifocal pneumonia, influenza A, strep viridians bacteremia with findings of stroke on MRI - acute vs. 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 Patient was treated for bacteremia with IV abx. Patient continues to refuse testing at this time. Guardianship establishment pending. Plan: AMS - resolved- currently at baseline mentation which waxes and wanes - Delirium precautions - Patient mentation clinically unchanged, able to answer simple questions with simple answers, poor insight - Likely secondary to depression vs. previous brain injury in form of metabolic encephalopathy vs residual stroke deficits - PT reordered to evaluate for deconditioning, patient still refusing to participate Stage I decubitus skin break down - Patient refuses to get out of bed to chair - Refusing activity with PT - Skin break down noticed on lateral posterior lower back/hip - Continue with Q2 turns - Folica acid, Thiamine, Zinc daily Bacteremia with S. viridans/mitis and Coag negative Staph Bactermia - Last bld clx negative 12/04/17 with completion of 6 week course of antibiotics - Monitor WBC, ESR, CRP weekly - Echocardiogram unable to rule out vegetations, family is unavailable for consent for TAHIR - Completed 6 week course of antibiotics Colonic Neoplasm - CT Abd/Pelvis showing colonic mass and hepatic lesions - GI consulted and following patient - Flex sig/colonoscopy refused by patient at this time - Family unable to be contacted for consent Ischemic Stroke - acute vs. subacute - ASA 81 mg - Lipitor 20mg - PT recommendationing JOSIAH DM2 - HgA1c is 7.4 - Continue ISS low - Metformin 500mg BID - Carb consistent diet HTN - Stable - Lisinopril 10mg Daily - Norvasc 10mg Daily Affective disorder - Celexa 10mg PO Daily - Seroquel HS - await psych medication alteration GI/DVT ppx - Protonix - SCDs Dispo: Patient lacks decision making capacity and is unable to comprehend his diagnosis, medical treatment, potential benefit and risk associated with and without treatment. Guardianship paperwork being processed followed by potential placement. <Charlotte Lim - Last Filed: 02/21/18 14:30> Objective - Vital Signs/Intake and Output Vital Signs (last 24 hours): Temp Pulse Resp BP Pulse Ox 98 F 94 H 18 122/82 95 02/21/18 07:41 02/21/18 07:41 02/21/18 07:41 02/21/18 09:02 02/21/18 07:41 Intake and Output: 02/21/18 02/21/18 06:59 18:59 Intake Total 840 600 Balance 840 600 - Medications Medications: Current Medications Amlodipine Besylate (Norvasc) 10 mg PO DAILY [facility] Last Admin: 02/21/18 09:02 Dose: 10 mg Aspirin (Ecotrin) 81 mg PO DAILY [facility] Last Admin: 02/21/18 09:01 Dose: 81 mg Atorvastatin Calcium (Lipitor) 20 mg PO DIN [facility] Last Admin: 02/20/18 17:35 Dose: 20 mg Citalopram Hydrobromide (Celexa) 10 mg PO DAILY [facility] Last Admin: 02/21/18 09:01 Dose: 10 mg Enoxaparin Sodium (Lovenox) 40 mg SC DAILY [facility] PRN Reason: Protocol Last Admin: 01/30/18 10:11 Dose: 40 mg Folic Acid (Folic Acid) 1 mg PO DAILY [facility] Last Admin: 02/21/18 09:01 Dose: 1 mg Insulin Human Regular (Humulin R Low) 0 units SC ACHS [facility] PRN Reason: Protocol Last Admin: 02/21/18 12:47 Dose: 1 units Lisinopril (Zestril) 10 mg PO DAILY [facility] Last Admin: 02/21/18 09:02 Dose: 10 mg Metformin HCl (Glucophage) 500 mg PO BID [facility] Last Admin: 02/21/18 09:01 Dose: 500 mg Multivitamins/Minerals (Therapeutic-M Tab) 1 tab PO 0800 [facility] Last Admin: 02/21/18 09:02 Dose: 1 tab Pantoprazole Sodium (Protonix Ec Tab) 40 mg PO 0600 [facility] Last Admin: 02/21/18 05:42 Dose: 40 mg Quetiapine Fumarate (Seroquel) 12.5 mg PO HS PRN; Protocol PRN Reason: Agitation Thiamine HCl (Vitamin B1 Tab) 100 mg PO DAILY [facility] Last Admin: 02/21/18 09:02 Dose: 100 mg Zinc Sulfate (Zinc Sulfate 220 Mg Cap) 220 mg PO DAILY [facility] Last Admin: 02/21/18 09:02 Dose: 220 mg - Labs Labs: 02/21/18 05:30 02/21/18 05:30 PT 12.5 SECONDS (9.4-12.5) 12/09/17 10:00 INR 1.09 (0.93-1.08) H 12/09/17 10:00 APTT 28.3 Seconds (25.1-36.5) 11/30/17 05:30 Attending/Attestation - Attestation I have personally seen and examined this patient.: Yes I have fully participated in the care of the patient.: Yes I have reviewed all pertinent clinical information, including history, physical exam and plan: Yes Notes (Text): I have seen and examined the patient at bedside. Agree with the above note dictated by the resident. Patient is stable and had no overnight acute events. He is alert. Refusing to get out of the bed and participate in PT. Mental status is at base line. He is awaiting for guardianship paper work for placement. I was informed that court date on 03/24 has been scheduled to decide patient's capacity. He need to be encouraged to ambulate and also need frequent change of position to avoid decubitus ulcer. Encourage incentive spirometry. Prognosis is guarded. Upon discharge patient will follow up with PMD of choice.
[2018-02-22] MEDS: Pantoprazole 40 mg EC Tab PO SCH (06:04)
[2018-02-22] MEDS: Insulin Reg-LOW-Coverage SC SCH ×4 (08:40→21:21)
[2018-02-22] MEDS: Multivitamin With Minerals Tab PO SCH (09:42)
--- NOTE | 2018-02-22 10:48 | CP.PCM.PN ---
<Ady Long - Last Filed: 02/22/18 10:46> Subjective - Date & Time of Evaluation Date of Evaluation: 02/22/18 Time of Evaluation: 10:46 - Subjective Subjective: Patient seen and examined at bedside. No complaints at this time. Tolerating diet. Refusing to participate in PT. Objective - Vital Signs/Intake and Output Vital Signs (last 24 hours): Temp Pulse Resp BP Pulse Ox 98 F 52 L 18 111/67 97 02/22/18 07:46 02/22/18 07:46 02/22/18 07:46 02/22/18 09:42 02/22/18 07:46 Intake and Output: 02/22/18 02/22/18 06:59 18:59 Intake Total 820 Balance 820 - Medications Medications: Current Medications Amlodipine Besylate (Norvasc) 10 mg PO DAILY [facility] Last Admin: 02/22/18 09:42 Dose: 10 mg Aspirin (Ecotrin) 81 mg PO DAILY [facility] Last Admin: 02/22/18 09:42 Dose: 81 mg Atorvastatin Calcium (Lipitor) 20 mg PO DIN [facility] Last Admin: 02/21/18 18:51 Dose: 20 mg Citalopram Hydrobromide (Celexa) 10 mg PO DAILY [facility] Last Admin: 02/22/18 09:42 Dose: 10 mg Enoxaparin Sodium (Lovenox) 40 mg SC DAILY [facility] PRN Reason: Protocol Last Admin: 01/30/18 10:11 Dose: 40 mg Folic Acid (Folic Acid) 1 mg PO DAILY [facility] Last Admin: 02/22/18 09:42 Dose: 1 mg Insulin Human Regular (Humulin R Low) 0 units SC [facility] PRN Reason: Protocol Last Admin: 02/22/18 08:40 Dose: Not Given Lisinopril (Zestril) 10 mg PO DAILY [facility] Last Admin: 02/21/18 09:02 Dose: 10 mg Metformin HCl (Glucophage) 500 mg PO BID [facility] Last Admin: 02/22/18 09:42 Dose: 500 mg Multivitamins/Minerals (Therapeutic-M Tab) 1 tab PO 0800 [facility] Last Admin: 02/22/18 09:42 Dose: 1 tab Pantoprazole Sodium (Protonix Ec Tab) 40 mg PO 0600 [facility] Last Admin: 02/22/18 06:04 Dose: 40 mg Quetiapine Fumarate (Seroquel) 12.5 mg PO HS PRN; Protocol PRN Reason: Agitation Thiamine HCl (Vitamin B1 Tab) 100 mg PO DAILY [facility] Last Admin: 02/22/18 09:42 Dose: 100 mg Zinc Sulfate (Zinc Sulfate 220 Mg Cap) 220 mg PO DAILY [facility] Last Admin: 02/22/18 09:42 Dose: 220 mg - Labs Labs: 02/21/18 05:30 02/21/18 05:30 PT 12.5 SECONDS (9.4-12.5) 12/09/17 10:00 INR 1.09 (0.93-1.08) H 12/09/17 10:00 APTT 28.3 Seconds (25.1-36.5) 11/30/17 05:30 - Constitutional Appears: Well - Head Exam Head Exam: ATRAUMATIC, NORMAL INSPECTION, NORMOCEPHALIC - Eye Exam Eye Exam: EOMI, Normal appearance, PERRL Pupil Exam: NORMAL ACCOMODATION, PERRL - ENT Exam ENT Exam: Mucous Membranes Moist, Normal Exam - Neck Exam Neck Exam: Full ROM, Normal Inspection. absent: Lymphadenopathy - Respiratory Exam Respiratory Exam: Clear to Ausculation Bilateral, NORMAL BREATHING PATTERN - Cardiovascular Exam Cardiovascular Exam: REGULAR RHYTHM, +S1, +S2. absent: Murmur - GI/Abdominal Exam GI & Abdominal Exam: Soft, Normal Bowel Sounds. absent: Tenderness - Extremities Exam Extremities Exam: Full ROM, Normal Capillary Refill, Normal Inspection. absent : Joint Swelling, Pedal Edema - Back Exam Back Exam: NORMAL INSPECTION - Neurological Exam Neurological Exam: Alert, Awake, CN II-XII Intact, Normal Gait, Oriented x3 - Psychiatric Exam Psychiatric exam: Normal Affect, Normal Mood - Skin Skin Exam: Dry, Intact, Normal Color, Warm Assessment and Plan - Assessment and Plan (Free Text) Assessment: 57yo male unknown PMHx admitted for AMS, right hip cellulitis, multifocal pneumonia, influenza A, strep viridians bacteremia with findings of stroke on MRI - acute vs. 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 Patient was treated for bacteremia with IV abx. Patient continues to refuse testing at this time. Guardianship establishment pending. Plan: AMS - resolved- currently at baseline mentation which waxes and wanes - Delirium precautions - Patient mentation clinically unchanged, able to answer simple questions with simple answers, poor insight - Likely secondary to depression vs. previous brain injury in form of metabolic encephalopathy vs residual stroke deficits - PT reordered to evaluate for deconditioning, patient still refusing to participate Stage I decubitus skin break down - Patient refuses to get out of bed to chair - Refusing activity with PT - Skin break down noticed on lateral posterior lower back/hip - Continue with Q2 turns - Folica acid, Thiamine, Zinc daily Bacteremia with S. viridans/mitis and Coag negative Staph Bactermia - Last bld clx negative 12/04/17 with completion of 6 week course of antibiotics - Monitor WBC, ESR, CRP weekly - Echocardiogram unable to rule out vegetations, family is unavailable for consent for TAHIR - Completed 6 week course of antibiotics Colonic Neoplasm - CT Abd/Pelvis showing colonic mass and hepatic lesions - GI consulted and following patient - Flex sig/colonoscopy refused by patient at this time - Family unable to be contacted for consent Ischemic Stroke - acute vs. subacute - ASA 81 mg - Lipitor 20mg - PT recommendationing JOSIAH DM2 - HgA1c is 7.4 - Continue ISS low - Metformin 500mg BID - Carb consistent diet HTN - Stable - Lisinopril 10mg Daily - Norvasc 10mg Daily Affective disorder - Celexa 10mg PO Daily - Seroquel HS - await psych medication alteration GI/DVT ppx - Protonix - SCDs Dispo: Patient lacks decision making capacity and is unable to comprehend his diagnosis, medical treatment, potential benefit and risk associated with and without treatment. Guardianship paperwork being processed followed by potential placement. Court scheduled for 03/24 concerning guardianship <Charlotte Lim - Last Filed: 02/22/18 11:26> Objective - Vital Signs/Intake and Output Vital Signs (last 24 hours): Temp Pulse Resp BP Pulse Ox 98 F 52 L 18 111/67 97 02/22/18 07:46 02/22/18 07:46 02/22/18 07:46 02/22/18 09:42 02/22/18 07:46 Intake and Output: 02/22/18 02/22/18 06:59 18:59 Intake Total 820 Balance 820 - Medications Medications: Current Medications Amlodipine Besylate (Norvasc) 10 mg PO DAILY [facility] Last Admin: 02/22/18 09:42 Dose: 10 mg Aspirin (Ecotrin) 81 mg PO DAILY [facility] Last Admin: 02/22/18 09:42 Dose: 81 mg Atorvastatin Calcium (Lipitor) 20 mg PO DIN [facility] Last Admin: 02/21/18 18:51 Dose: 20 mg Citalopram Hydrobromide (Celexa) 10 mg PO DAILY [facility] Last Admin: 02/22/18 09:42 Dose: 10 mg Enoxaparin Sodium (Lovenox) 40 mg SC DAILY [facility] PRN Reason: Protocol Last Admin: 01/30/18 10:11 Dose: 40 mg Folic Acid (Folic Acid) 1 mg PO DAILY [facility] Last Admin: 02/22/18 09:42 Dose: 1 mg Insulin Human Regular (Humulin R Low) 0 units SC A[facility]S [facility] PRN Reason: Protocol Last Admin: 02/22/18 08:40 Dose: Not Given Lisinopril (Zestril) 10 mg PO DAILY [facility] Last Admin: 02/21/18 09:02 Dose: 10 mg Metformin HCl (Glucophage) 500 mg PO BID [facility] Last Admin: 02/22/18 09:42 Dose: 500 mg Multivitamins/Minerals (Therapeutic-M Tab) 1 tab PO 0800 [facility] Last Admin: 02/22/18 09:42 Dose: 1 tab Pantoprazole Sodium (Protonix Ec Tab) 40 mg PO 0600 [facility] Last Admin: 02/22/18 06:04 Dose: 40 mg Quetiapine Fumarate (Seroquel) 12.5 mg PO HS PRN; Protocol PRN Reason: Agitation Thiamine HCl (Vitamin B1 Tab) 100 mg PO DAILY [facility] Last Admin: 02/22/18 09:42 Dose: 100 mg Zinc Sulfate (Zinc Sulfate 220 Mg Cap) 220 mg PO DAILY [facility] Last Admin: 02/22/18 09:42 Dose: 220 mg - Labs Labs: 02/21/18 05:30 02/21/18 05:30 PT 12.5 SECONDS (9.4-12.5) 12/09/17 10:00 INR 1.09 (0.93-1.08) H 12/09/17 10:00 APTT 28.3 Seconds (25.1-36.5) 11/30/17 05:30 Attending/Attestation - Attestation I have personally seen and examined this patient.: Yes I have fully participated in the care of the patient.: Yes I have reviewed all pertinent clinical information, including history, physical exam and plan: Yes Notes (Text): I have seen and examined the patient at bedside. Agree with the above note dictated by the resident. Patient is stable and had no overnight acute events. He is alert and tolerating foods without any problem. Refusing to get out of the bed and participate in PT. Mental status is at base line. He is awaiting for guardianship paper work for placement. I was informed that court date on 03/24 has been scheduled to decide patient's capacity. He need to be encouraged to ambulate and also need frequent change of position to avoid decubitus ulcer. Encourage incentive spirometry. Prognosis is guarded. Upon discharge patient will follow up with PMD of choice.
--- NOTE | 2018-02-22 14:20 | CP.PCM.PN ---
Subjective - Date & Time of Evaluation Date of Evaluation: 02/22/18 Time of Evaluation: 11:00 - Subjective Subjective: No fevers, not in distress. Objective - Vital Signs/Intake and Output Vital Signs (last 24 hours): Temp Pulse Resp BP Pulse Ox 98 F 52 L 18 111/67 97 02/22/18 07:46 02/22/18 07:46 02/22/18 07:46 02/22/18 09:42 02/22/18 07:46 Intake and Output: 02/22/18 02/22/18 06:59 18:59 Intake Total 820 Balance 820 - Medications Medications: Current Medications Amlodipine Besylate (Norvasc) 10 mg PO DAILY [facility] Last Admin: 02/22/18 09:42 Dose: 10 mg Aspirin (Ecotrin) 81 mg PO DAILY [facility] Last Admin: 02/22/18 09:42 Dose: 81 mg Atorvastatin Calcium (Lipitor) 20 mg PO DIN [facility] Last Admin: 02/21/18 18:51 Dose: 20 mg Citalopram Hydrobromide (Celexa) 10 mg PO DAILY [facility] Last Admin: 02/22/18 09:42 Dose: 10 mg Enoxaparin Sodium (Lovenox) 40 mg SC DAILY [facility] PRN Reason: Protocol Last Admin: 01/30/18 10:11 Dose: 40 mg Folic Acid (Folic Acid) 1 mg PO DAILY [facility] Last Admin: 02/22/18 09:42 Dose: 1 mg Insulin Human Regular (Humulin R Low) 0 units SC ACHS [facility] PRN Reason: Protocol Last Admin: 02/22/18 08:40 Dose: Not Given Lisinopril (Zestril) 10 mg PO DAILY [facility] Last Admin: 02/21/18 09:02 Dose: 10 mg Metformin HCl (Glucophage) 500 mg PO BID [facility] Last Admin: 02/22/18 09:42 Dose: 500 mg Multivitamins/Minerals (Therapeutic-M Tab) 1 tab PO 0800 [facility] Last Admin: 02/22/18 09:42 Dose: 1 tab Pantoprazole Sodium (Protonix Ec Tab) 40 mg PO 0600 [facility] Last Admin: 02/22/18 06:04 Dose: 40 mg Quetiapine Fumarate (Seroquel) 12.5 mg PO HS PRN; Protocol PRN Reason: Agitation Thiamine HCl (Vitamin B1 Tab) 100 mg PO DAILY [facility] Last Admin: 02/22/18 09:42 Dose: 100 mg Zinc Sulfate (Zinc Sulfate 220 Mg Cap) 220 mg PO DAILY [facility] Last Admin: 02/22/18 09:42 Dose: 220 mg - Labs Labs: 02/21/18 05:30 02/21/18 05:30 PT 12.5 SECONDS (9.4-12.5) 12/09/17 10:00 INR 1.09 (0.93-1.08) H 12/09/17 10:00 APTT 28.3 Seconds (25.1-36.5) 11/30/17 05:30 - Constitutional Appears: Non-toxic, Chronically Ill - Head Exam Head Exam: NORMAL INSPECTION - Respiratory Exam Respiratory Exam: Decreased Breath Sounds - Cardiovascular Exam Cardiovascular Exam: +S1, +S2 - GI/Abdominal Exam GI & Abdominal Exam: Soft. absent: Tenderness Assessment and Plan - Assessment and Plan (Free Text) Plan: Assessment S/P sepsis due to strep viridans and CoNS bacteremia from right gluteal and back cellulitis S/P multifocal HCAP on top of Influenza A infection S/P Sammie infection of sacral area as well peripheral vascular disease Plan completed 42 days of antibiotics - continue to follow clinically off antibiotics since he is at risk for hospital-acquired infections
[2018-02-23] MEDS: Pantoprazole 40 mg EC Tab PO SCH (05:40)
[2018-02-23] MEDS: Insulin Reg-LOW-Coverage SC SCH ×4 (08:14→22:00)
--- NOTE | 2018-02-23 08:17 | CARD ---
APPROVED REPORT EKG Measurement Heart [id number] <Conclusion> Normal sinus rhythm IVCD Q in 3 STTW changes
[2018-02-23] MEDS: Multivitamin With Minerals Tab PO SCH (10:26)
--- NOTE | 2018-02-23 11:33 | CP.PCM.PN ---
<Ady Long - Last Filed: 02/23/18 11:32> Subjective - Date & Time of Evaluation Date of Evaluation: 02/23/18 Time of Evaluation: 11:32 - Subjective Subjective: Patient seen and examined at bedside. Doing well with no complaints at this time Objective - Vital Signs/Intake and Output Vital Signs (last 24 hours): Temp Pulse Resp BP Pulse Ox 98.0 F 102 H 20 133/72 95 02/23/18 09:41 02/23/18 09:41 02/23/18 09:41 02/23/18 10:25 02/23/18 09:41 Intake and Output: 02/23/18 02/23/18 06:59 18:59 Intake Total 120 Balance 120 - Medications Medications: Current Medications Amlodipine Besylate (Norvasc) 10 mg PO DAILY [facility] Last Admin: 02/23/18 10:25 Dose: 10 mg Aspirin (Ecotrin) 81 mg PO DAILY [facility] Last Admin: 02/23/18 10:25 Dose: 81 mg Atorvastatin Calcium (Lipitor) 20 mg PO DIN [facility] Last Admin: 02/22/18 18:06 Dose: 20 mg Citalopram Hydrobromide (Celexa) 10 mg PO DAILY [facility] Last Admin: 02/23/18 10:25 Dose: 10 mg Enoxaparin Sodium (Lovenox) 40 mg SC DAILY [facility] PRN Reason: Protocol Last Admin: 01/30/18 10:11 Dose: 40 mg Folic Acid (Folic Acid) 1 mg PO DAILY [facility] Last Admin: 02/23/18 10:25 Dose: 1 mg Insulin Human Regular (Humulin R Low) 0 units SC [facility] PRN Reason: Protocol Last Admin: 02/23/18 08:14 Dose: Not Given Lisinopril (Zestril) 10 mg PO DAILY [facility] Last Admin: 02/23/18 10:27 Dose: 10 mg Metformin HCl (Glucophage) 500 mg PO BID [facility] Last Admin: 02/23/18 10:25 Dose: 500 mg Multivitamins/Minerals (Therapeutic-M Tab) 1 tab PO 0800 [facility] Last Admin: 02/23/18 10:26 Dose: 1 tab Pantoprazole Sodium (Protonix Ec Tab) 40 mg PO 0600 [facility] Last Admin: 02/23/18 05:40 Dose: 40 mg Thiamine HCl (Vitamin B1 Tab) 100 mg PO DAILY [facility] Last Admin: 02/23/18 10:26 Dose: 100 mg Zinc Sulfate (Zinc Sulfate 220 Mg Cap) 220 mg PO DAILY [facility] Last Admin: 02/23/18 10:27 Dose: 220 mg - Labs Labs: 02/21/18 05:30 02/21/18 05:30 PT 12.5 SECONDS (9.4-12.5) 12/09/17 10:00 INR 1.09 (0.93-1.08) H 12/09/17 10:00 APTT 28.3 Seconds (25.1-36.5) 11/30/17 05:30 - Constitutional Appears: Well - Head Exam Head Exam: ATRAUMATIC, NORMAL INSPECTION, NORMOCEPHALIC - Eye Exam Eye Exam: EOMI, Normal appearance, PERRL Pupil Exam: NORMAL ACCOMODATION, PERRL - ENT Exam ENT Exam: Mucous Membranes Moist, Normal Exam - Neck Exam Neck Exam: Full ROM, Normal Inspection. absent: Lymphadenopathy - Respiratory Exam Respiratory Exam: Clear to Ausculation Bilateral, NORMAL BREATHING PATTERN - Cardiovascular Exam Cardiovascular Exam: REGULAR RHYTHM, +S1, +S2. absent: Murmur - GI/Abdominal Exam GI & Abdominal Exam: Soft, Normal Bowel Sounds. absent: Tenderness - Extremities Exam Extremities Exam: Full ROM, Normal Capillary Refill, Normal Inspection. absent : Joint Swelling, Pedal Edema - Back Exam Back Exam: NORMAL INSPECTION - Neurological Exam Neurological Exam: Alert, Awake, CN II-XII Intact, Normal Gait, Oriented x3 - Psychiatric Exam Psychiatric exam: Normal Affect, Normal Mood - Skin Skin Exam: Dry, Intact, Normal Color, Warm Assessment and Plan - Assessment and Plan (Free Text) Assessment: 57yo male unknown PMHx admitted for AMS, right hip cellulitis, multifocal pneumonia, influenza A, strep viridians bacteremia with findings of stroke on MRI - acute vs. 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 Patient was treated for bacteremia with IV abx. Patient continues to refuse testing at this time. Guardianship establishment pending. Plan: AMS - resolved- currently at baseline mentation which waxes and wanes - Delirium precautions - Patient mentation clinically unchanged, able to answer simple questions with simple answers, poor insight - Likely secondary to depression vs. previous brain injury in form of metabolic encephalopathy vs residual stroke deficits - PT reordered to evaluate for deconditioning, patient still refusing to participate Stage I decubitus skin break down - Patient refuses to get out of bed to chair - Refusing activity with PT - Skin break down noticed on lateral posterior lower back/hip - Continue with Q2 turns - Folica acid, Thiamine, Zinc daily Bacteremia with S. viridans/mitis and Coag negative Staph Bactermia - Last bld clx negative 12/04/17 with completion of 6 week course of antibiotics - Monitor WBC, ESR, CRP weekly - Echocardiogram unable to rule out vegetations, family is unavailable for consent for TAHIR - Completed 6 week course of antibiotics Colonic Neoplasm - CT Abd/Pelvis showing colonic mass and hepatic lesions - GI consulted and following patient - Flex sig/colonoscopy refused by patient at this time - Family unable to be contacted for consent Ischemic Stroke - acute vs. subacute - ASA 81 mg - Lipitor 20mg - PT recommendationing JOSIAH DM2 - HgA1c is 7.4 - Continue ISS low - Metformin 500mg BID - Carb consistent diet HTN - Stable - Lisinopril 10mg Daily - Norvasc 10mg Daily Affective disorder - Celexa 10mg PO Daily - Seroquel HS - await psych medication alteration GI/DVT ppx - Protonix - SCDs Dispo: Patient lacks decision making capacity and is unable to comprehend his diagnosis, medical treatment, potential benefit and risk associated with and without treatment. Guardianship paperwork being processed followed by potential placement. Court scheduled for 03/24 concerning guardianship <Charlotte Lim - Last Filed: 02/23/18 16:07> Objective - Vital Signs/Intake and Output Vital Signs (last 24 hours): Temp Pulse Resp BP Pulse Ox 98.0 F 102 H 20 133/72 95 02/23/18 09:41 02/23/18 09:41 02/23/18 09:41 02/23/18 10:25 02/23/18 09:41 Intake and Output: 02/23/18 02/23/18 06:59 18:59 Intake Total 720 Balance 720 - Medications Medications: Current Medications Amlodipine Besylate (Norvasc) 10 mg PO DAILY [facility] Last Admin: 02/23/18 10:25 Dose: 10 mg Aspirin (Ecotrin) 81 mg PO DAILY [facility] Last Admin: 02/23/18 10:25 Dose: 81 mg Atorvastatin Calcium (Lipitor) 20 mg PO DIN [facility] Last Admin: 02/22/18 18:06 Dose: 20 mg Citalopram Hydrobromide (Celexa) 10 mg PO DAILY [facility] Last Admin: 02/23/18 10:25 Dose: 10 mg Enoxaparin Sodium (Lovenox) 40 mg SC DAILY [facility] PRN Reason: Protocol Last Admin: 01/30/18 10:11 Dose: 40 mg Folic Acid (Folic Acid) 1 mg PO DAILY [facility] Last Admin: 02/23/18 10:25 Dose: 1 mg Insulin Human Regular (Humulin R Low) 0 units SC ACHS [facility] PRN Reason: Protocol Last Admin: 02/23/18 13:21 Dose: 1 units Lisinopril (Zestril) 10 mg PO DAILY [facility] Last Admin: 02/23/18 10:27 Dose: 10 mg Metformin HCl (Glucophage) 500 mg PO BID [facility] Last Admin: 02/23/18 10:25 Dose: 500 mg Multivitamins/Minerals (Therapeutic-M Tab) 1 tab PO 0800 [facility] Last Admin: 02/23/18 10:26 Dose: 1 tab Pantoprazole Sodium (Protonix Ec Tab) 40 mg PO 0600 [facility] Last Admin: 02/23/18 05:40 Dose: 40 mg Thiamine HCl (Vitamin B1 Tab) 100 mg PO DAILY [facility] Last Admin: 02/23/18 10:26 Dose: 100 mg Zinc Sulfate (Zinc Sulfate 220 Mg Cap) 220 mg PO DAILY [facility] Last Admin: 02/23/18 10:27 Dose: 220 mg - Labs Labs: 02/21/18 05:30 02/21/18 05:30 PT 12.5 SECONDS (9.4-12.5) 12/09/17 10:00 INR 1.09 (0.93-1.08) H 12/09/17 10:00 APTT 28.3 Seconds (25.1-36.5) 11/30/17 05:30 Attending/Attestation - Attestation I have personally seen and examined this patient.: Yes I have fully participated in the care of the patient.: Yes I have reviewed all pertinent clinical information, including history, physical exam and plan: Yes Notes (Text): I have seen and examined the patient at bedside. Agree with the above note dictated by the resident. Patient is stable and had no overnight acute events. He is alert and tolerating foods without any problem. Refusing to get out of the bed and participate in PT. Mental status is at base line. He is awaiting for guardianship paper work for placement. I was informed that court date on 03/24 has been scheduled to decide patient's capacity. He need to be encouraged to ambulate and also need frequent change of position to avoid decubitus ulcer. Encourage incentive spirometry. Upon discharge patient will follow up with PMD of choice.
--- NOTE | 2018-02-23 14:22 | CP.PCM.PN ---
Subjective - Date & Time of Evaluation Date of Evaluation: 02/23/18 Time of Evaluation: 10:45 - Subjective Subjective: Comfortable, afebrile. Objective - Vital Signs/Intake and Output Vital Signs (last 24 hours): Temp Pulse Resp BP Pulse Ox 98.0 F 102 H 20 133/72 95 02/23/18 09:41 02/23/18 09:41 02/23/18 09:41 02/23/18 10:25 02/23/18 09:41 Intake and Output: 02/23/18 02/23/18 06:59 18:59 Intake Total 720 Balance 720 - Medications Medications: Current Medications Amlodipine Besylate (Norvasc) 10 mg PO DAILY [facility] Last Admin: 02/23/18 10:25 Dose: 10 mg Aspirin (Ecotrin) 81 mg PO DAILY [facility] Last Admin: 02/23/18 10:25 Dose: 81 mg Atorvastatin Calcium (Lipitor) 20 mg PO DIN [facility] Last Admin: 02/22/18 18:06 Dose: 20 mg Citalopram Hydrobromide (Celexa) 10 mg PO DAILY [facility] Last Admin: 02/23/18 10:25 Dose: 10 mg Enoxaparin Sodium (Lovenox) 40 mg SC DAILY [facility] PRN Reason: Protocol Last Admin: 01/30/18 10:11 Dose: 40 mg Folic Acid (Folic Acid) 1 mg PO DAILY [facility] Last Admin: 02/23/18 10:25 Dose: 1 mg Insulin Human Regular (Humulin R Low) 0 units SC ACHS [facility] PRN Reason: Protocol Last Admin: 02/23/18 13:21 Dose: 1 units Lisinopril (Zestril) 10 mg PO DAILY [facility] Last Admin: 02/23/18 10:27 Dose: 10 mg Metformin HCl (Glucophage) 500 mg PO BID [facility] Last Admin: 02/23/18 10:25 Dose: 500 mg Multivitamins/Minerals (Therapeutic-M Tab) 1 tab PO 0800 [facility] Last Admin: 02/23/18 10:26 Dose: 1 tab Pantoprazole Sodium (Protonix Ec Tab) 40 mg PO 0600 [facility] Last Admin: 02/23/18 05:40 Dose: 40 mg Thiamine HCl (Vitamin B1 Tab) 100 mg PO DAILY [facility] Last Admin: 02/23/18 10:26 Dose: 100 mg Zinc Sulfate (Zinc Sulfate 220 Mg Cap) 220 mg PO DAILY [facility] Last Admin: 02/23/18 10:27 Dose: 220 mg - Labs Labs: 02/21/18 05:30 02/21/18 05:30 PT 12.5 SECONDS (9.4-12.5) 12/09/17 10:00 INR 1.09 (0.93-1.08) H 12/09/17 10:00 APTT 28.3 Seconds (25.1-36.5) 11/30/17 05:30 - Constitutional Appears: Non-toxic, Chronically Ill - Head Exam Head Exam: NORMAL INSPECTION - Respiratory Exam Respiratory Exam: Decreased Breath Sounds - Cardiovascular Exam Cardiovascular Exam: +S1, +S2 - GI/Abdominal Exam GI & Abdominal Exam: Soft. absent: Tenderness Assessment and Plan - Assessment and Plan (Free Text) Plan: Assessment S/P sepsis due to strep viridans and CoNS bacteremia from right gluteal and back cellulitis S/P multifocal HCAP on top of Influenza A infection S/P Sammie infection of sacral area as well peripheral vascular disease Plan completed 42 days of antibiotics - continue to follow clinically off antibiotics since he is at risk for healthcare-associated infections
[2018-02-24] MEDS: Pantoprazole 40 mg EC Tab PO SCH (05:46)
--- NOTE | 2018-02-24 07:51 | CP.PCM.PN ---
<Ady Long - Last Filed: 02/24/18 07:48> Subjective - Date & Time of Evaluation Date of Evaluation: 02/24/18 Time of Evaluation: 07:48 - Subjective Subjective: Patient seen and examined at bedside. Doing well with no complaints at this time. Tolerating diet. No changes overnight Objective - Vital Signs/Intake and Output Vital Signs (last 24 hours): Temp Pulse Resp BP Pulse Ox 98.4 F 90 19 108/72 95 02/23/18 18:00 02/23/18 18:00 02/23/18 18:00 02/23/18 18:00 02/23/18 18:00 Intake and Output: 02/24/18 02/24/18 06:59 18:59 Intake Total 120 Balance 120 - Medications Medications: Current Medications Amlodipine Besylate (Norvasc) 10 mg PO DAILY [facility] Last Admin: 02/23/18 10:25 Dose: 10 mg Aspirin (Ecotrin) 81 mg PO DAILY [facility] Last Admin: 02/23/18 10:25 Dose: 81 mg Atorvastatin Calcium (Lipitor) 20 mg PO DIN [facility] Last Admin: 02/23/18 18:01 Dose: 20 mg Citalopram Hydrobromide (Celexa) 10 mg PO DAILY [facility] Last Admin: 02/23/18 10:25 Dose: 10 mg Enoxaparin Sodium (Lovenox) 40 mg SC DAILY [facility] PRN Reason: Protocol Last Admin: 01/30/18 10:11 Dose: 40 mg Folic Acid (Folic Acid) 1 mg PO DAILY [facility] Last Admin: 02/23/18 10:25 Dose: 1 mg Insulin Human Regular (Humulin R Low) 0 units SC [facility] PRN Reason: Protocol Last Admin: 02/23/18 22:00 Dose: Not Given Lisinopril (Zestril) 10 mg PO DAILY [facility] Last Admin: 02/23/18 10:27 Dose: 10 mg Metformin HCl (Glucophage) 500 mg PO BID [facility] Last Admin: 02/23/18 18:01 Dose: 500 mg Multivitamins/Minerals (Therapeutic-M Tab) 1 tab PO 0800 [facility] Last Admin: 02/23/18 10:26 Dose: 1 tab Pantoprazole Sodium (Protonix Ec Tab) 40 mg PO 0600 [facility] Last Admin: 02/24/18 05:46 Dose: 40 mg Thiamine HCl (Vitamin B1 Tab) 100 mg PO DAILY [facility] Last Admin: 02/23/18 10:26 Dose: 100 mg Zinc Sulfate (Zinc Sulfate 220 Mg Cap) 220 mg PO DAILY [facility] Last Admin: 02/23/18 10:27 Dose: 220 mg - Labs Labs: 02/21/18 05:30 02/21/18 05:30 PT 12.5 SECONDS (9.4-12.5) 12/09/17 10:00 INR 1.09 (0.93-1.08) H 12/09/17 10:00 APTT 28.3 Seconds (25.1-36.5) 11/30/17 05:30 - Constitutional Appears: Well - Head Exam Head Exam: ATRAUMATIC, NORMAL INSPECTION, NORMOCEPHALIC - Eye Exam Eye Exam: EOMI, Normal appearance, PERRL Pupil Exam: NORMAL ACCOMODATION, PERRL - ENT Exam ENT Exam: Mucous Membranes Moist, Normal Exam - Neck Exam Neck Exam: Full ROM, Normal Inspection. absent: Lymphadenopathy - Respiratory Exam Respiratory Exam: Clear to Ausculation Bilateral, NORMAL BREATHING PATTERN - Cardiovascular Exam Cardiovascular Exam: REGULAR RHYTHM, +S1, +S2. absent: Murmur - GI/Abdominal Exam GI & Abdominal Exam: Soft, Normal Bowel Sounds. absent: Tenderness - Extremities Exam Extremities Exam: Full ROM, Normal Capillary Refill, Normal Inspection. absent : Joint Swelling, Pedal Edema - Back Exam Back Exam: NORMAL INSPECTION - Neurological Exam Neurological Exam: Alert, Awake, CN II-XII Intact, Normal Gait, Oriented x3 - Psychiatric Exam Psychiatric exam: Normal Affect, Normal Mood - Skin Skin Exam: Dry, Intact, Normal Color, Warm Assessment and Plan (1) Altered mental status Assessment & Plan: resolved- currently at baseline mentation which waxes and wanes Delirium precautions Patient mentation clinically unchanged, able to answer simple questions with simple answers, poor insight Likely secondary to depression vs. previous brain injury in form of metabolic encephalopathy vs residual stroke deficits PT reordered to evaluate for deconditioning, patient still refusing to participate Status: Resolved (2) Ischemic stroke Status: Acute (3) Coag negative Staphylococcus bacteremia Assessment & Plan: Last bld clx negative 12/04/17 with completion of 6 week course of antibiotics Monitor WBC, ESR, CRP weekly Echocardiogram unable to rule out vegetations, family is unavailable for consent for TAHIR Status: Resolved (4) Stage 1 decubitus ulcer Assessment & Plan: Patient refuses to get out of bed to chair Refusing activity with PT Skin break down noticed on lateral posterior lower back/hip Continue with Q2 turns Folic acid, Thiamine, Zinc daily Air mattress Wound care consult Off loading boots Status: Acute (5) Colonic mass Assessment & Plan: CT Abd/Pelvis showing colonic mass and hepatic lesions GI consulted and following patient Flex sig/colonoscopy refused by patient at this time Family unable to be contacted for consent Status: Chronic (6) Diabetes mellitus type 2 in nonobese Assessment & Plan: HgA1c is 7.4 Continue ISS low Metformin 500mg BID Carb consistent diet Status: Chronic (7) HTN (hypertension) Status: Acute (8) Affective disorder Assessment & Plan: Celexa 10mg PO Daily Status: Chronic (9) Prophylactic measure Assessment & Plan: No GI PPX indicated this time SCDs Dispo: Patient lacks decision making capacity and is unable to comprehend his diagnosis, medical treatment, potential benefit and risk associated with and without treatment. Guardianship paperwork being processed followed by potential placement. Court scheduled for 03/24 concerning guardianship Status: Acute <Charlotte Lim B - Last Filed: 02/24/18 11:33> Objective - Vital Signs/Intake and Output Vital Signs (last 24 hours): Temp Pulse Resp BP Pulse Ox 97.4 F L 92 H 20 119/76 95 02/24/18 07:48 02/24/18 09:49 02/24/18 07:48 02/24/18 09:49 02/24/18 07:48 Intake and Output: 02/24/18 02/24/18 06:59 18:59 Intake Total 120 Balance 120 - Medications Medications: Current Medications Amlodipine Besylate (Norvasc) 10 mg PO DAILY [facility] Last Admin: 02/24/18 09:49 Dose: 10 mg Aspirin (Ecotrin) 81 mg PO DAILY [facility] Last Admin: 02/24/18 09:48 Dose: 81 mg Atorvastatin Calcium (Lipitor) 20 mg PO DIN [facility] Last Admin: 02/23/18 18:01 Dose: 20 mg Citalopram Hydrobromide (Celexa) 10 mg PO DAILY [facility] Last Admin: 02/24/18 09:48 Dose: 10 mg Enoxaparin Sodium (Lovenox) 40 mg SC DAILY [facility] PRN Reason: Protocol Last Admin: 01/30/18 10:11 Dose: 40 mg Folic Acid (Folic Acid) 1 mg PO DAILY [facility] Last Admin: 02/24/18 09:48 Dose: 1 mg Insulin Human Regular (Humulin R Low) 0 units SC ACHS [facility] PRN Reason: Protocol Last Admin: 02/24/18 11:20 Dose: 1 units Lisinopril (Zestril) 10 mg PO DAILY [facility] Last Admin: 02/24/18 09:49 Dose: 10 mg Metformin HCl (Glucophage) 500 mg PO BID [facility] Last Admin: 02/24/18 09:48 Dose: 500 mg Multivitamins/Minerals (Therapeutic-M Tab) 1 tab PO 0800 [facility] Last Admin: 02/24/18 09:49 Dose: 1 tab Pantoprazole Sodium (Protonix Ec Tab) 40 mg PO 0600 [facility] Last Admin: 02/24/18 05:46 Dose: 40 mg Thiamine HCl (Vitamin B1 Tab) 100 mg PO DAILY [facility] Last Admin: 02/24/18 09:49 Dose: 100 mg Zinc Sulfate (Zinc Sulfate 220 Mg Cap) 220 mg PO DAILY [facility] Last Admin: 02/24/18 09:50 Dose: 220 mg - Labs Labs: 02/21/18 05:30 02/21/18 05:30 PT 12.5 SECONDS (9.4-12.5) 12/09/17 10:00 INR 1.09 (0.93-1.08) H 12/09/17 10:00 APTT 28.3 Seconds (25.1-36.5) 11/30/17 05:30 Attending/Attestation - Attestation I have personally seen and examined this patient.: Yes I have fully participated in the care of the patient.: Yes I have reviewed all pertinent clinical information, including history, physical exam and plan: Yes Notes (Text): I have seen and examined the patient at bedside. Agree with the above note dictated by the resident. He is alert and tolerating foods without any problem. Refusing to get out of the bed and participate in PT. Mental status is at base line. He is awaiting for guardianship paper work for placement. His court date on 03/24 has been scheduled to decide patient's capacity. He need to be encouraged to ambulate and also need frequent change of position to avoid decubitus ulcer. Encourage incentive spirometry. Upon discharge patient will follow up with PMD of choice.
[2018-02-24] MEDS: Insulin Reg-LOW-Coverage SC SCH ×4 (09:48→21:24)
[2018-02-24] MEDS: Multivitamin With Minerals Tab PO SCH (09:49)
--- NOTE | 2018-02-24 12:21 | CP.PCM.PN ---
Subjective - Date & Time of Evaluation Date of Evaluation: 02/24/18 Time of Evaluation: 10:35 - Subjective Subjective: No fevers, not in distress, no diarrhea. Objective - Vital Signs/Intake and Output Vital Signs (last 24 hours): Temp Pulse Resp BP Pulse Ox 97.4 F L 92 H 20 119/76 95 02/24/18 07:48 02/24/18 09:49 02/24/18 07:48 02/24/18 09:49 02/24/18 07:48 Intake and Output: 02/24/18 02/24/18 06:59 18:59 Intake Total 120 Balance 120 - Medications Medications: Current Medications Amlodipine Besylate (Norvasc) 10 mg PO DAILY [facility] Last Admin: 02/24/18 09:49 Dose: 10 mg Aspirin (Ecotrin) 81 mg PO DAILY [facility] Last Admin: 02/24/18 09:48 Dose: 81 mg Atorvastatin Calcium (Lipitor) 20 mg PO DIN [facility] Last Admin: 02/23/18 18:01 Dose: 20 mg Citalopram Hydrobromide (Celexa) 10 mg PO DAILY [facility] Last Admin: 02/24/18 09:48 Dose: 10 mg Enoxaparin Sodium (Lovenox) 40 mg SC DAILY [facility] PRN Reason: Protocol Last Admin: 01/30/18 10:11 Dose: 40 mg Folic Acid (Folic Acid) 1 mg PO DAILY [facility] Last Admin: 02/24/18 09:48 Dose: 1 mg Insulin Human Regular (Humulin R Low) 0 units SC [facility] PRN Reason: Protocol Last Admin: 02/24/18 11:20 Dose: 1 units Lisinopril (Zestril) 10 mg PO DAILY [facility] Last Admin: 02/24/18 09:49 Dose: 10 mg Metformin HCl (Glucophage) 500 mg PO BID [facility] Last Admin: 02/24/18 09:48 Dose: 500 mg Multivitamins/Minerals (Therapeutic-M Tab) 1 tab PO 0800 [facility] Last Admin: 02/24/18 09:49 Dose: 1 tab Pantoprazole Sodium (Protonix Ec Tab) 40 mg PO 0600 [facility] Last Admin: 02/24/18 05:46 Dose: 40 mg Thiamine HCl (Vitamin B1 Tab) 100 mg PO DAILY [facility] Last Admin: 02/24/18 09:49 Dose: 100 mg Zinc Sulfate (Zinc Sulfate 220 Mg Cap) 220 mg PO DAILY [facility] Last Admin: 02/24/18 09:50 Dose: 220 mg - Labs Labs: 02/21/18 05:30 02/21/18 05:30 PT 12.5 SECONDS (9.4-12.5) 12/09/17 10:00 INR 1.09 (0.93-1.08) H 12/09/17 10:00 APTT 28.3 Seconds (25.1-36.5) 11/30/17 05:30 - Constitutional Appears: Non-toxic, Chronically Ill - Head Exam Head Exam: NORMAL INSPECTION - Respiratory Exam Respiratory Exam: Decreased Breath Sounds - Cardiovascular Exam Cardiovascular Exam: +S1, +S2 - GI/Abdominal Exam GI & Abdominal Exam: Soft. absent: Tenderness Assessment and Plan - Assessment and Plan (Free Text) Plan: Assessment S/P sepsis due to strep viridans and CoNS bacteremia from right gluteal and back cellulitis S/P multifocal HCAP on top of Influenza A infection S/P Sammie infection of sacral area as well peripheral vascular disease Plan patient completed 42 days of antibiotics - continue to monitor clinically off antibiotics since he is at risk for nosocomial infections
[2018-02-25] MEDS: Pantoprazole 40 mg EC Tab PO SCH (05:50)
[2018-02-25] MEDS: Insulin Reg-LOW-Coverage SC SCH ×4 (09:25→21:41)
[2018-02-25] MEDS: Multivitamin With Minerals Tab PO SCH (09:26)
--- NOTE | 2018-02-25 11:52 | CP.PCM.PN ---
Subjective - Date & Time of Evaluation Date of Evaluation: 02/25/18 Time of Evaluation: 10:35 - Subjective Subjective: Afebrile, comfortable. Objective - Vital Signs/Intake and Output Vital Signs (last 24 hours): Temp Pulse Resp BP Pulse Ox 97.8 F 91 H 20 113/75 95 02/25/18 07:59 02/25/18 07:59 02/25/18 07:59 02/25/18 07:59 02/25/18 07:59 Intake and Output: 02/25/18 02/25/18 06:59 18:59 Intake Total 1060 Balance 1060 - Medications Medications: Current Medications Amlodipine Besylate (Norvasc) 10 mg PO DAILY [facility] Last Admin: 02/24/18 09:49 Dose: 10 mg Aspirin (Ecotrin) 81 mg PO DAILY [facility] Last Admin: 02/24/18 09:48 Dose: 81 mg Atorvastatin Calcium (Lipitor) 20 mg PO DIN [facility] Last Admin: 02/24/18 17:13 Dose: 20 mg Citalopram Hydrobromide (Celexa) 10 mg PO DAILY [facility] Last Admin: 02/24/18 09:48 Dose: 10 mg Enoxaparin Sodium (Lovenox) 40 mg SC DAILY [facility] PRN Reason: Protocol Last Admin: 01/30/18 10:11 Dose: 40 mg Folic Acid (Folic Acid) 1 mg PO DAILY [facility] Last Admin: 02/24/18 09:48 Dose: 1 mg Insulin Human Regular (Humulin R Low) 0 units SC [facility] PRN Reason: Protocol Last Admin: 02/24/18 21:24 Dose: Not Given Lisinopril (Zestril) 10 mg PO DAILY [facility] Last Admin: 02/24/18 09:49 Dose: 10 mg Metformin HCl (Glucophage) 500 mg PO BID [facility] Last Admin: 02/24/18 17:12 Dose: 500 mg Multivitamins/Minerals (Therapeutic-M Tab) 1 tab PO 0800 [facility] Last Admin: 02/24/18 09:49 Dose: 1 tab Pantoprazole Sodium (Protonix Ec Tab) 40 mg PO 0600 [facility] Last Admin: 02/25/18 05:50 Dose: 40 mg Thiamine HCl (Vitamin B1 Tab) 100 mg PO DAILY [facility] Last Admin: 02/24/18 09:49 Dose: 100 mg Zinc Sulfate (Zinc Sulfate 220 Mg Cap) 220 mg PO DAILY [facility] Last Admin: 02/24/18 09:50 Dose: 220 mg - Labs Labs: 02/21/18 05:30 02/21/18 05:30 PT 12.5 SECONDS (9.4-12.5) 12/09/17 10:00 INR 1.09 (0.93-1.08) H 12/09/17 10:00 APTT 28.3 Seconds (25.1-36.5) 11/30/17 05:30 - Constitutional Appears: Non-toxic, Chronically Ill - Head Exam Head Exam: NORMAL INSPECTION - Neck Exam Neck Exam: absent: Meningismus - Respiratory Exam Respiratory Exam: Decreased Breath Sounds - Cardiovascular Exam Cardiovascular Exam: +S1, +S2 - GI/Abdominal Exam GI & Abdominal Exam: Soft. absent: Tenderness Assessment and Plan - Assessment and Plan (Free Text) Plan: Assessment S/P sepsis due to strep viridans and CoNS bacteremia from right gluteal and back cellulitis S/P multifocal HCAP on top of Influenza A infection S/P Sammie infection of sacral area as well peripheral vascular disease Plan patient had completed 42 days of antibiotics on this admission - continue to monitor clinically off antibiotics since he is at risk for hospital-acquired infections
--- NOTE | 2018-02-25 13:33 | CP.PCM.PN ---
<Ady Long - Last Filed: 02/25/18 13:47> Subjective - Date & Time of Evaluation Date of Evaluation: 02/25/18 Time of Evaluation: 13:20 - Subjective Subjective: Patient seen and examined at bedside. Doing well with no complaints at this time Objective - Vital Signs/Intake and Output Vital Signs (last 24 hours): Temp Pulse Resp BP Pulse Ox 97.8 F 91 H 20 113/75 95 02/25/18 07:59 02/25/18 09:26 02/25/18 07:59 02/25/18 09:26 02/25/18 07:59 Intake and Output: 02/25/18 02/25/18 06:59 18:59 Intake Total 1060 Balance 1060 - Medications Medications: Current Medications Amlodipine Besylate (Norvasc) 10 mg PO DAILY [facility] Last Admin: 02/25/18 09:26 Dose: 10 mg Aspirin (Ecotrin) 81 mg PO DAILY [facility] Last Admin: 02/25/18 09:24 Dose: 81 mg Atorvastatin Calcium (Lipitor) 20 mg PO DIN [facility] Last Admin: 02/24/18 17:13 Dose: 20 mg Citalopram Hydrobromide (Celexa) 10 mg PO DAILY [facility] Last Admin: 02/25/18 09:24 Dose: 10 mg Enoxaparin Sodium (Lovenox) 40 mg SC DAILY [facility] PRN Reason: Protocol Last Admin: 01/30/18 10:11 Dose: 40 mg Folic Acid (Folic Acid) 1 mg PO DAILY [facility] Last Admin: 02/25/18 09:24 Dose: 1 mg Insulin Human Regular (Humulin R Low) 0 units SC [facility] PRN Reason: Protocol Last Admin: 02/25/18 11:52 Dose: Not Given Lisinopril (Zestril) 10 mg PO DAILY [facility] Last Admin: 02/25/18 09:26 Dose: 10 mg Metformin HCl (Glucophage) 500 mg PO BID [facility] Last Admin: 02/25/18 09:24 Dose: 500 mg Multivitamins/Minerals (Therapeutic-M Tab) 1 tab PO 0800 [facility] Last Admin: 02/25/18 09:26 Dose: 1 tab Pantoprazole Sodium (Protonix Ec Tab) 40 mg PO 0600 [facility] Last Admin: 02/25/18 05:50 Dose: 40 mg Thiamine HCl (Vitamin B1 Tab) 100 mg PO DAILY [facility] Last Admin: 02/25/18 09:26 Dose: 100 mg Zinc Sulfate (Zinc Sulfate 220 Mg Cap) 220 mg PO DAILY [facility] Last Admin: 02/25/18 09:26 Dose: 220 mg - Labs Labs: 02/21/18 05:30 02/21/18 05:30 PT 12.5 SECONDS (9.4-12.5) 12/09/17 10:00 INR 1.09 (0.93-1.08) H 12/09/17 10:00 APTT 28.3 Seconds (25.1-36.5) 11/30/17 05:30 - Additional Findings Additional findings: (1) Altered mental status Assessment & Plan: resolved- currently at baseline mentation which waxes and wanes Delirium precautions Patient mentation clinically unchanged, able to answer simple questions with simple answers, poor insight Likely secondary to depression vs. previous brain injury in form of metabolic encephalopathy vs residual stroke deficits PT reordered to evaluate for deconditioning, patient still refusing to participate Status: Resolved (2) Ischemic stroke Status: Acute (3) Coag negative Staphylococcus bacteremia Assessment & Plan: Last bld clx negative 12/04/17 with completion of 6 week course of antibiotics Monitor WBC, ESR, CRP weekly Echocardiogram unable to rule out vegetations, family is unavailable for consent for TAHIR Status: Resolved (4) Stage 1 decubitus ulcer Assessment & Plan: Patient refuses to get out of bed to chair Refusing activity with PT Skin break down noticed on lateral posterior lower back/hip Continue with Q2 turns Folic acid, Thiamine, Zinc daily Air mattress Wound care consult Off loading boots Status: Acute (5) Colonic mass Assessment & Plan: CT Abd/Pelvis showing colonic mass and hepatic lesions GI consulted and following patient Flex sig/colonoscopy refused by patient at this time Family unable to be contacted for consent Status: Chronic (6) Diabetes mellitus type 2 in nonobese Assessment & Plan: HgA1c is 7.4 Continue ISS low Metformin 500mg BID Carb consistent diet Status: Chronic (7) HTN (hypertension) Status: Acute (8) Affective disorder Assessment & Plan: Celexa 10mg PO Daily Status: Chronic (9) Prophylactic measure Assessment & Plan: No GI PPX indicated this time SCDs Dispo: Patient lacks decision making capacity and is unable to comprehend his diagnosis, medical treatment, potential benefit and risk associated with and without treatment. Guardianship paperwork being processed followed by potential placement. Court scheduled for 03/24 concerning guardianship Status: Acute Assessment and Plan - Assessment and Plan (Free Text) Assessment: (1) Altered mental status Assessment & Plan: resolved- currently at baseline mentation which waxes and wanes Delirium precautions Patient mentation clinically unchanged, able to answer simple questions with simple answers, poor insight Likely secondary to depression vs. previous brain injury in form of metabolic encephalopathy vs residual stroke deficits PT reordered to evaluate for deconditioning, patient still refusing to participate Status: Resolved (2) Ischemic stroke Status: Acute (3) Coag negative Staphylococcus bacteremia Assessment & Plan: Last bld clx negative 12/04/17 with completion of 6 week course of antibiotics Monitor WBC, ESR, CRP weekly Echocardiogram unable to rule out vegetations, family is unavailable for consent for TAHIR Status: Resolved (4) Stage 1 decubitus ulcer Assessment & Plan: Patient refuses to get out of bed to chair Refusing activity with PT Skin break down noticed on lateral posterior lower back/hip Continue with Q2 turns Folic acid, Thiamine, Zinc daily Air mattress Wound care consult Off loading boots Status: Acute (5) Colonic mass Assessment & Plan: CT Abd/Pelvis showing colonic mass and hepatic lesions GI consulted and following patient Flex sig/colonoscopy refused by patient at this time Family unable to be contacted for consent Status: Chronic (6) Diabetes mellitus type 2 in nonobese Assessment & Plan: HgA1c is 7.4 Continue ISS low Metformin 500mg BID Carb consistent diet Status: Chronic (7) HTN (hypertension) Status: Acute (8) Affective disorder Assessment & Plan: Celexa 10mg PO Daily Status: Chronic (9) Prophylactic measure Assessment & Plan: No GI PPX indicated this time SCDs Dispo: Patient lacks decision making capacity and is unable to comprehend his diagnosis, medical treatment, potential benefit and risk associated with and without treatment. Guardianship paperwork being processed followed by potential placement. Court scheduled for 03/24 concerning guardianship Status: Acute <Charlotte Lim - Last Filed: 02/25/18 15:25> Objective - Vital Signs/Intake and Output Vital Signs (last 24 hours): Temp Pulse Resp BP Pulse Ox 97.8 F 91 H 20 113/75 95 02/25/18 07:59 02/25/18 09:26 02/25/18 07:59 02/25/18 09:26 02/25/18 07:59 Intake and Output: 02/25/18 02/25/18 06:59 18:59 Intake Total 1060 800 Balance 1060 800 - Medications Medications: Current Medications Amlodipine Besylate (Norvasc) 10 mg PO DAILY [facility] Last Admin: 02/25/18 09:26 Dose: 10 mg Aspirin (Ecotrin) 81 mg PO DAILY [facility] Last Admin: 02/25/18 09:24 Dose: 81 mg Atorvastatin Calcium (Lipitor) 20 mg PO DIN [facility] Last Admin: 02/24/18 17:13 Dose: 20 mg Citalopram Hydrobromide (Celexa) 10 mg PO DAILY [facility] Last Admin: 02/25/18 09:24 Dose: 10 mg Enoxaparin Sodium (Lovenox) 40 mg SC DAILY [facility] PRN Reason: Protocol Last Admin: 01/30/18 10:11 Dose: 40 mg Folic Acid (Folic Acid) 1 mg PO DAILY [facility] Last Admin: 02/25/18 09:24 Dose: 1 mg Insulin Human Regular (Humulin R Low) 0 units SC [facility] PRN Reason: Protocol Last Admin: 02/25/18 11:52 Dose: Not Given Lisinopril (Zestril) 10 mg PO DAILY [facility] Last Admin: 02/25/18 09:26 Dose: 10 mg Metformin HCl (Glucophage) 500 mg PO BID [facility] Last Admin: 02/25/18 09:24 Dose: 500 mg Multivitamins/Minerals (Therapeutic-M Tab) 1 tab PO 0800 [facility] Last Admin: 02/25/18 09:26 Dose: 1 tab Pantoprazole Sodium (Protonix Ec Tab) 40 mg PO 0600 [facility] Last Admin: 02/25/18 05:50 Dose: 40 mg Thiamine HCl (Vitamin B1 Tab) 100 mg PO DAILY [facility] Last Admin: 02/25/18 09:26 Dose: 100 mg Zinc Sulfate (Zinc Sulfate 220 Mg Cap) 220 mg PO DAILY [facility] Last Admin: 02/25/18 09:26 Dose: 220 mg - Labs Labs: 02/21/18 05:30 02/21/18 05:30 PT 12.5 SECONDS (9.4-12.5) 12/09/17 10:00 INR 1.09 (0.93-1.08) H 12/09/17 10:00 APTT 28.3 Seconds (25.1-36.5) 11/30/17 05:30 Attending/Attestation - Attestation I have personally seen and examined this patient.: Yes I have fully participated in the care of the patient.: Yes I have reviewed all pertinent clinical information, including history, physical exam and plan: Yes Notes (Text): I have seen and examined the patient at bedside. Agree with the above note dictated by the resident. He is alert and tolerating foods without any problem. Refusing to get out of the bed and participate in PT. Mental status is at base line. He is still awaiting guardianship paper work for placement. His court date on has been scheduled to decide patient's capacity. He need to be encouraged to ambulate and also need frequent change of position to avoid decubitus ulcer. Encourage incentive spirometry. Upon discharge patient will follow up with PMD of choice.
[2018-02-26] MEDS: Pantoprazole 40 mg EC Tab PO SCH (05:45)
[2018-02-26] MEDS: Insulin Reg-LOW-Coverage SC SCH ×4 (07:52→21:59)
[2018-02-26] MEDS: Multivitamin With Minerals Tab PO SCH (09:45)
--- NOTE | 2018-02-26 12:24 | CP.PCM.PN ---
<Ady Long - Last Filed: 02/26/18 12:23> Subjective - Date & Time of Evaluation Date of Evaluation: 02/26/18 Time of Evaluation: 12:23 - Subjective Subjective: Patient seen and examined at bedside. No changes overnight. No complaints at this time Objective - Vital Signs/Intake and Output Vital Signs (last 24 hours): Temp Pulse Resp BP Pulse Ox 97.8 F 86 20 115/73 95 02/26/18 08:01 02/26/18 09:44 02/26/18 08:01 02/26/18 09:45 02/26/18 08:01 Intake and Output: 02/26/18 02/26/18 06:59 18:59 Intake Total 120 Balance 120 - Medications Medications: Current Medications Amlodipine Besylate (Norvasc) 10 mg PO DAILY [facility] Last Admin: 02/26/18 09:45 Dose: 10 mg Aspirin (Ecotrin) 81 mg PO DAILY [facility] Last Admin: 02/26/18 09:45 Dose: 81 mg Atorvastatin Calcium (Lipitor) 20 mg PO DIN [facility] Last Admin: 02/25/18 17:03 Dose: 20 mg Citalopram Hydrobromide (Celexa) 10 mg PO DAILY [facility] Last Admin: 02/26/18 09:45 Dose: 10 mg Enoxaparin Sodium (Lovenox) 40 mg SC DAILY [facility] PRN Reason: Protocol Last Admin: 01/30/18 10:11 Dose: 40 mg Folic Acid (Folic Acid) 1 mg PO DAILY [facility] Last Admin: 02/26/18 09:45 Dose: 1 mg Insulin Human Regular (Humulin R Low) 0 units SC [facility] PRN Reason: Protocol Last Admin: 02/26/18 07:52 Dose: Not Given Lisinopril (Zestril) 10 mg PO DAILY [facility] Last Admin: 02/26/18 09:44 Dose: 10 mg Metformin HCl (Glucophage) 500 mg PO BID [facility] Last Admin: 02/26/18 09:45 Dose: 500 mg Multivitamins/Minerals (Therapeutic-M Tab) 1 tab PO 0800 [facility] Last Admin: 02/26/18 09:45 Dose: 1 tab Pantoprazole Sodium (Protonix Ec Tab) 40 mg PO 0600 [facility] Last Admin: 02/26/18 05:45 Dose: Not Given Thiamine HCl (Vitamin B1 Tab) 100 mg PO DAILY [facility] Last Admin: 02/26/18 09:45 Dose: 100 mg Zinc Sulfate (Zinc Sulfate 220 Mg Cap) 220 mg PO DAILY [facility] Last Admin: 02/26/18 09:45 Dose: 220 mg - Labs Labs: 02/21/18 05:30 02/21/18 05:30 PT 12.5 SECONDS (9.4-12.5) 12/09/17 10:00 INR 1.09 (0.93-1.08) H 12/09/17 10:00 APTT 28.3 Seconds (25.1-36.5) 11/30/17 05:30 - Additional Findings Additional findings: - Constitutional Appears: Well - Head Exam Head Exam: ATRAUMATIC, NORMAL INSPECTION, NORMOCEPHALIC - Eye Exam Eye Exam: EOMI, Normal appearance, PERRL Pupil Exam: NORMAL ACCOMODATION, PERRL - ENT Exam ENT Exam: Mucous Membranes Moist, Normal Exam - Neck Exam Neck Exam: Full ROM, Normal Inspection. absent: Lymphadenopathy - Respiratory Exam Respiratory Exam: Clear to Ausculation Bilateral, NORMAL BREATHING PATTERN - Cardiovascular Exam Cardiovascular Exam: REGULAR RHYTHM, +S1, +S2. absent: Murmur - GI/Abdominal Exam GI & Abdominal Exam: Soft, Normal Bowel Sounds. absent: Tenderness - Extremities Exam Extremities Exam: Full ROM, Normal Capillary Refill, Normal Inspection. absent : Joint Swelling, Pedal Edema - Back Exam Back Exam: NORMAL INSPECTION - Neurological Exam Neurological Exam: Alert, Awake, CN II-XII Intact, Normal Gait, Oriented x3 - Psychiatric Exam Psychiatric exam: Normal Affect, Normal Mood - Skin Skin Exam: Dry, Intact, Normal Color, Warm Assessment and Plan - Assessment and Plan (Free Text) Assessment: (1) Altered mental status Assessment & Plan: resolved- currently at baseline mentation which waxes and wanes Delirium precautions Patient mentation clinically unchanged, able to answer simple questions with simple answers, poor insight Likely secondary to depression vs. previous brain injury in form of metabolic encephalopathy vs residual stroke deficits PT reordered to evaluate for deconditioning, patient still refusing to participate Status: Resolved (2) Ischemic stroke Status: Acute (3) Coag negative Staphylococcus bacteremia Assessment & Plan: Last bld clx negative 12/04/17 with completion of 6 week course of antibiotics Monitor WBC, ESR, CRP weekly Echocardiogram unable to rule out vegetations, family is unavailable for consent for TAHIR Status: Resolved (4) Stage 1 decubitus ulcer Assessment & Plan: Patient refuses to get out of bed to chair Refusing activity with PT Skin break down noticed on lateral posterior lower back/hip Continue with Q2 turns Folic acid, Thiamine, Zinc daily Air mattress Wound care consult Off loading boots Status: Acute (5) Colonic mass Assessment & Plan: CT Abd/Pelvis showing colonic mass and hepatic lesions GI consulted and following patient Flex sig/colonoscopy refused by patient at this time Family unable to be contacted for consent Status: Chronic (6) Diabetes mellitus type 2 in nonobese Assessment & Plan: HgA1c is 7.4 Continue ISS low Metformin 500mg BID Carb consistent diet Status: Chronic (7) HTN (hypertension) Status: Acute (8) Affective disorder Assessment & Plan: Celexa 10mg PO Daily Status: Chronic (9) Prophylactic measure Assessment & Plan: No GI PPX indicated this time SCDs Dispo: Patient lacks decision making capacity and is unable to comprehend his diagnosis, medical treatment, potential benefit and risk associated with and without treatment. Guardianship paperwork being processed followed by potential placement. Court scheduled for 03/24 concerning guardianship Status: Acute <Charlotte Lim - Last Filed: 02/26/18 12:35> Objective - Vital Signs/Intake and Output Vital Signs (last 24 hours): Temp Pulse Resp BP Pulse Ox 97.8 F 86 20 115/73 95 02/26/18 08:01 02/26/18 09:44 02/26/18 08:01 02/26/18 09:45 02/26/18 08:01 Intake and Output: 02/26/18 02/26/18 06:59 18:59 Intake Total 120 Balance 120 - Medications Medications: Current Medications Amlodipine Besylate (Norvasc) 10 mg PO DAILY [facility] Last Admin: 02/26/18 09:45 Dose: 10 mg Aspirin (Ecotrin) 81 mg PO DAILY [facility] Last Admin: 02/26/18 09:45 Dose: 81 mg Atorvastatin Calcium (Lipitor) 20 mg PO DIN [facility] Last Admin: 02/25/18 17:03 Dose: 20 mg Citalopram Hydrobromide (Celexa) 10 mg PO DAILY [facility] Last Admin: 02/26/18 09:45 Dose: 10 mg Enoxaparin Sodium (Lovenox) 40 mg SC DAILY [facility] PRN Reason: Protocol Last Admin: 01/30/18 10:11 Dose: 40 mg Folic Acid (Folic Acid) 1 mg PO DAILY [facility] Last Admin: 02/26/18 09:45 Dose: 1 mg Insulin Human Regular (Humulin R Low) 0 units SC ACHS [facility] PRN Reason: Protocol Last Admin: 02/26/18 07:52 Dose: Not Given Lisinopril (Zestril) 10 mg PO DAILY [facility] Last Admin: 02/26/18 09:44 Dose: 10 mg Metformin HCl (Glucophage) 500 mg PO BID [facility] Last Admin: 02/26/18 09:45 Dose: 500 mg Multivitamins/Minerals (Therapeutic-M Tab) 1 tab PO 0800 [facility] Last Admin: 02/26/18 09:45 Dose: 1 tab Pantoprazole Sodium (Protonix Ec Tab) 40 mg PO 0600 [facility] Last Admin: 02/26/18 05:45 Dose: Not Given Thiamine HCl (Vitamin B1 Tab) 100 mg PO DAILY [facility] Last Admin: 02/26/18 09:45 Dose: 100 mg Zinc Sulfate (Zinc Sulfate 220 Mg Cap) 220 mg PO DAILY [facility] Last Admin: 02/26/18 09:45 Dose: 220 mg - Labs Labs: 02/21/18 05:30 02/21/18 05:30 PT 12.5 SECONDS (9.4-12.5) 12/09/17 10:00 INR 1.09 (0.93-1.08) H 12/09/17 10:00 APTT 28.3 Seconds (25.1-36.5) 11/30/17 05:30 Attending/Attestation - Attestation I have personally seen and examined this patient.: Yes I have fully participated in the care of the patient.: Yes I have reviewed all pertinent clinical information, including history, physical exam and plan: Yes Notes (Text): I have seen and examined the patient at bedside. Agree with the above note dictated by the resident. He is alert and tolerating foods without any problem. Still refusing to get out of the bed and participate in PT. Mental status is at base line. He is still awaiting guardianship paper work for placement. Encourage incentive spirometry and physical therapy. Upon discharge patient will follow up with PMD of choice.
--- NOTE | 2018-02-26 14:14 | CP.PCM.PN ---
Subjective - Date & Time of Evaluation Date of Evaluation: 02/26/18 Time of Evaluation: 12:25 - Subjective Subjective: Comfortable, not in distress. No fevers. Objective - Vital Signs/Intake and Output Vital Signs (last 24 hours): Temp Pulse Resp BP Pulse Ox 97.9 F 96 H 20 115/72 97 02/25/18 17:28 02/25/18 17:28 02/25/18 17:28 02/25/18 17:28 02/25/18 17:28 Intake and Output: 02/26/18 02/26/18 06:59 18:59 Intake Total 120 Balance 120 - Medications Medications: Current Medications Amlodipine Besylate (Norvasc) 10 mg PO DAILY [facility] Last Admin: 02/25/18 09:26 Dose: 10 mg Aspirin (Ecotrin) 81 mg PO DAILY [facility] Last Admin: 02/25/18 09:24 Dose: 81 mg Atorvastatin Calcium (Lipitor) 20 mg PO DIN [facility] Last Admin: 02/25/18 17:03 Dose: 20 mg Citalopram Hydrobromide (Celexa) 10 mg PO DAILY [facility] Last Admin: 02/25/18 09:24 Dose: 10 mg Enoxaparin Sodium (Lovenox) 40 mg SC DAILY [facility] PRN Reason: Protocol Last Admin: 01/30/18 10:11 Dose: 40 mg Folic Acid (Folic Acid) 1 mg PO DAILY [facility] Last Admin: 02/25/18 09:24 Dose: 1 mg Insulin Human Regular (Humulin R Low) 0 units SC ACHS [facility] PRN Reason: Protocol Last Admin: 02/25/18 21:41 Dose: Not Given Lisinopril (Zestril) 10 mg PO DAILY [facility] Last Admin: 02/25/18 09:26 Dose: 10 mg Metformin HCl (Glucophage) 500 mg PO BID [facility] Last Admin: 02/25/18 17:03 Dose: 500 mg Multivitamins/Minerals (Therapeutic-M Tab) 1 tab PO 0800 [facility] Last Admin: 02/25/18 09:26 Dose: 1 tab Pantoprazole Sodium (Protonix Ec Tab) 40 mg PO 0600 [facility] Last Admin: 02/26/18 05:45 Dose: Not Given Thiamine HCl (Vitamin B1 Tab) 100 mg PO DAILY [facility] Last Admin: 02/25/18 09:26 Dose: 100 mg Zinc Sulfate (Zinc Sulfate 220 Mg Cap) 220 mg PO DAILY [facility] Last Admin: 02/25/18 09:26 Dose: 220 mg - Labs Labs: 02/21/18 05:30 02/21/18 05:30 PT 12.5 SECONDS (9.4-12.5) 12/09/17 10:00 INR 1.09 (0.93-1.08) H 12/09/17 10:00 APTT 28.3 Seconds (25.1-36.5) 11/30/17 05:30 - Constitutional Appears: Non-toxic, Chronically Ill - Head Exam Head Exam: NORMAL INSPECTION - Respiratory Exam Respiratory Exam: Decreased Breath Sounds - Cardiovascular Exam Cardiovascular Exam: +S1, +S2 - GI/Abdominal Exam GI & Abdominal Exam: Soft. absent: Tenderness Assessment and Plan - Assessment and Plan (Free Text) Plan: Assessment S/P sepsis due to strep viridans and CoNS bacteremia from right gluteal and back cellulitis S/P multifocal HCAP on top of Influenza A infection S/P Sammie infection of sacral area as well peripheral vascular disease Plan patient had completed 42 days of antibiotics on this admission - continue to monitor clinically off antibiotics since he is at risk for healthcare- associated infections
[2018-02-27] MEDS: Insulin Reg-LOW-Coverage SC SCH ×4 (07:51→21:35)
[2018-02-27] MEDS: Multivitamin With Minerals Tab PO SCH (09:22)
[2018-02-27] MEDS: Enoxaparin 40 mg Syringe SC SCH (09:57)
--- NOTE | 2018-02-27 12:23 | CP.PCM.PN ---
<Ady Long - Last Filed: 02/27/18 12:21> Subjective - Date & Time of Evaluation Date of Evaluation: 02/27/18 Time of Evaluation: 12:21 - Subjective Subjective: Patient seen and examined at bedside. Doing well with no complaints at this time Objective - Vital Signs/Intake and Output Vital Signs (last 24 hours): Temp Pulse Resp BP Pulse Ox 97.7 F 88 18 132/78 95 02/27/18 07:42 02/27/18 07:42 02/27/18 07:42 02/27/18 09:22 02/27/18 07:42 Intake and Output: 02/27/18 02/27/18 06:59 18:59 Intake Total 600 360 Balance 600 360 - Medications Medications: Current Medications Amlodipine Besylate (Norvasc) 10 mg PO DAILY [facility] Last Admin: 02/27/18 09:22 Dose: 10 mg Aspirin (Ecotrin) 81 mg PO DAILY [facility] Last Admin: 02/27/18 09:22 Dose: 81 mg Atorvastatin Calcium (Lipitor) 20 mg PO DIN [facility] Last Admin: 02/26/18 17:46 Dose: 20 mg Citalopram Hydrobromide (Celexa) 10 mg PO DAILY [facility] Last Admin: 02/27/18 09:22 Dose: 10 mg Enoxaparin Sodium (Lovenox) 40 mg SC DAILY [facility] PRN Reason: Protocol Last Admin: 02/27/18 09:57 Dose: 40 mg Folic Acid (Folic Acid) 1 mg PO DAILY [facility] Last Admin: 02/27/18 09:22 Dose: 1 mg Insulin Human Regular (Humulin R Low) 0 units SC [facility] PRN Reason: Protocol Last Admin: 02/27/18 11:36 Dose: Not Given Lisinopril (Zestril) 10 mg PO DAILY [facility] Last Admin: 02/27/18 09:22 Dose: 10 mg Metformin HCl (Glucophage) 500 mg PO BID [facility] Last Admin: 02/27/18 09:22 Dose: 500 mg Multivitamins/Minerals (Therapeutic-M Tab) 1 tab PO 0800 [facility] Last Admin: 02/27/18 09:22 Dose: 1 tab Thiamine HCl (Vitamin B1 Tab) 100 mg PO DAILY [facility] Last Admin: 02/27/18 09:22 Dose: 100 mg Zinc Sulfate (Zinc Sulfate 220 Mg Cap) 220 mg PO DAILY [facility] Last Admin: 05/13/18 09:22 Dose: 220 mg - Labs Labs: 02/21/18 05:30 02/21/18 05:30 PT 12.5 SECONDS (9.4-12.5) 12/09/17 10:00 INR 1.09 (0.93-1.08) H 12/09/17 10:00 APTT 28.3 Seconds (25.1-36.5) 11/30/17 05:30 - Additional Findings Additional findings: - Constitutional Appears: Well - Head Exam Head Exam: ATRAUMATIC, NORMAL INSPECTION, NORMOCEPHALIC - Eye Exam Eye Exam: EOMI, Normal appearance, PERRL Pupil Exam: NORMAL ACCOMODATION, PERRL - ENT Exam ENT Exam: Mucous Membranes Moist, Normal Exam - Neck Exam Neck Exam: Full ROM, Normal Inspection. absent: Lymphadenopathy - Respiratory Exam Respiratory Exam: Clear to Ausculation Bilateral, NORMAL BREATHING PATTERN - Cardiovascular Exam Cardiovascular Exam: REGULAR RHYTHM, +S1, +S2. absent: Murmur - GI/Abdominal Exam GI & Abdominal Exam: Soft, Normal Bowel Sounds. absent: Tenderness - Extremities Exam Extremities Exam: Full ROM, Normal Capillary Refill, Normal Inspection. absent : Joint Swelling, Pedal Edema - Back Exam Back Exam: NORMAL INSPECTION - Neurological Exam Neurological Exam: Alert, Awake, CN II-XII Intact, Normal Gait, Oriented x3 - Psychiatric Exam Psychiatric exam: Normal Affect, Normal Mood - Skin Skin Exam: Dry, Intact, Normal Color, Warm Assessment and Plan - Assessment and Plan (Free Text) Assessment: (1) Altered mental status Assessment & Plan: resolved- currently at baseline mentation which waxes and wanes Delirium precautions Patient mentation clinically unchanged, able to answer simple questions with simple answers, poor insight Likely secondary to depression vs. previous brain injury in form of metabolic encephalopathy vs residual stroke deficits PT reordered to evaluate for deconditioning, patient still refusing to participate Status: Resolved (2) Ischemic stroke Status: Acute (3) Coag negative Staphylococcus bacteremia Assessment & Plan: Last bld clx negative 12/04/17 with completion of 6 week course of antibiotics Monitor WBC, ESR, CRP weekly Echocardiogram unable to rule out vegetations, family is unavailable for consent for TAHIR Status: Resolved (4) Stage 1 decubitus ulcer Assessment & Plan: Patient refuses to get out of bed to chair Refusing activity with PT Skin break down noticed on lateral posterior lower back/hip Continue with Q2 turns Folic acid, Thiamine, Zinc daily Air mattress Wound care consult Off loading boots Status: Acute (5) Colonic mass Assessment & Plan: CT Abd/Pelvis showing colonic mass and hepatic lesions GI consulted and following patient Flex sig/colonoscopy refused by patient at this time Family unable to be contacted for consent Status: Chronic (6) Diabetes mellitus type 2 in nonobese Assessment & Plan: HgA1c is 7.4 Continue ISS low Metformin 500mg BID Carb consistent diet Status: Chronic (7) HTN (hypertension) Status: Acute (8) Affective disorder Assessment & Plan: Celexa 10mg PO Daily Status: Chronic (9) Prophylactic measure Assessment & Plan: No GI PPX indicated this time SCDs Dispo: Patient lacks decision making capacity and is unable to comprehend his diagnosis, medical treatment, potential benefit and risk associated with and without treatment. Guardianship paperwork being processed followed by potential placement. Court scheduled for 03/24 concerning guardianship Status: Acute <Charlotte Lim B - Last Filed: 02/27/18 12:33> Objective - Vital Signs/Intake and Output Vital Signs (last 24 hours): Temp Pulse Resp BP Pulse Ox 97.7 F 88 18 132/78 95 02/27/18 07:42 02/27/18 07:42 02/27/18 07:42 02/27/18 09:22 02/27/18 07:42 Intake and Output: 02/27/18 02/27/18 06:59 18:59 Intake Total 600 360 Balance 600 360 - Medications Medications: Current Medications Amlodipine Besylate (Norvasc) 10 mg PO DAILY [facility] Last Admin: 02/27/18 09:22 Dose: 10 mg Aspirin (Ecotrin) 81 mg PO DAILY [facility] Last Admin: 02/27/18 09:22 Dose: 81 mg Atorvastatin Calcium (Lipitor) 20 mg PO DIN [facility] Last Admin: 02/26/18 17:46 Dose: 20 mg Citalopram Hydrobromide (Celexa) 10 mg PO DAILY [facility] Last Admin: 02/27/18 09:22 Dose: 10 mg Enoxaparin Sodium (Lovenox) 40 mg SC DAILY [facility] PRN Reason: Protocol Last Admin: 02/27/18 09:57 Dose: 40 mg Folic Acid (Folic Acid) 1 mg PO DAILY [facility] Last Admin: 02/27/18 09:22 Dose: 1 mg Insulin Human Regular (Humulin R Low) 0 units SC ACHS [facility] PRN Reason: Protocol Last Admin: 02/27/18 11:36 Dose: Not Given Lisinopril (Zestril) 10 mg PO DAILY [facility] Last Admin: 02/27/18 09:22 Dose: 10 mg Metformin HCl (Glucophage) 500 mg PO BID [facility] Last Admin: 02/27/18 09:22 Dose: 500 mg Multivitamins/Minerals (Therapeutic-M Tab) 1 tab PO 0800 [facility] Last Admin: 02/27/18 09:22 Dose: 1 tab Thiamine HCl (Vitamin B1 Tab) 100 mg PO DAILY [facility] Last Admin: 02/27/18 09:22 Dose: 100 mg Zinc Sulfate (Zinc Sulfate 220 Mg Cap) 220 mg PO DAILY [facility] Last Admin: 02/27/18 09:22 Dose: 220 mg - Labs Labs: 02/21/18 05:30 02/21/18 05:30 PT 12.5 SECONDS (9.4-12.5) 12/09/17 10:00 INR 1.09 (0.93-1.08) H 12/09/17 10:00 APTT 28.3 Seconds (25.1-36.5) 11/30/17 05:30 Attending/Attestation - Attestation I have personally seen and examined this patient.: Yes I have fully participated in the care of the patient.: Yes I have reviewed all pertinent clinical information, including history, physical exam and plan: Yes Notes (Text): I have seen and examined the patient at bedside. Agree with the above note dictated by the resident. He is alert and denies any complaints. Still refusing to get out of the bed and participate in PT. Mental status is at base line. He is awaiting guardianship paper work for placement. Encourage incentive spirometry and physical therapy. Upon discharge patient will follow up with PMD of choice.
--- NOTE | 2018-02-27 13:56 | CP.PCM.PN ---
Subjective - Date & Time of Evaluation Date of Evaluation: 02/27/18 Time of Evaluation: 10:10 - Subjective Subjective: Afebrile, comfortable in bed. Objective - Vital Signs/Intake and Output Vital Signs (last 24 hours): Temp Pulse Resp BP Pulse Ox 97.6 F 95 H 20 120/80 96 02/26/18 18:42 02/26/18 18:42 02/26/18 18:42 02/26/18 18:42 02/26/18 18:42 Intake and Output: 02/27/18 02/27/18 06:59 18:59 Intake Total 600 Balance 600 - Medications Medications: Current Medications Amlodipine Besylate (Norvasc) 10 mg PO DAILY [facility] Last Admin: 02/26/18 09:45 Dose: 10 mg Aspirin (Ecotrin) 81 mg PO DAILY [facility] Last Admin: 02/26/18 09:45 Dose: 81 mg Atorvastatin Calcium (Lipitor) 20 mg PO DIN [facility] Last Admin: 02/26/18 17:46 Dose: 20 mg Citalopram Hydrobromide (Celexa) 10 mg PO DAILY [facility] Last Admin: 02/26/18 09:45 Dose: 10 mg Enoxaparin Sodium (Lovenox) 40 mg SC DAILY [facility] PRN Reason: Protocol Last Admin: 01/30/18 10:11 Dose: 40 mg Folic Acid (Folic Acid) 1 mg PO DAILY [facility] Last Admin: 02/26/18 09:45 Dose: 1 mg Insulin Human Regular (Humulin R Low) 0 units SC ACHS [facility] PRN Reason: Protocol Last Admin: 02/26/18 21:59 Dose: Not Given Lisinopril (Zestril) 10 mg PO DAILY [facility] Last Admin: 02/26/18 09:44 Dose: 10 mg Metformin HCl (Glucophage) 500 mg PO BID [facility] Last Admin: 02/26/18 17:46 Dose: 500 mg Multivitamins/Minerals (Therapeutic-M Tab) 1 tab PO 0800 [facility] Last Admin: 02/26/18 09:45 Dose: 1 tab Thiamine HCl (Vitamin B1 Tab) 100 mg PO DAILY [facility] Last Admin: 02/26/18 09:45 Dose: 100 mg Zinc Sulfate (Zinc Sulfate 220 Mg Cap) 220 mg PO DAILY [facility] Last Admin: 02/26/18 09:45 Dose: 220 mg - Labs Labs: 02/21/18 05:30 02/21/18 05:30 PT 12.5 SECONDS (9.4-12.5) 12/09/17 10:00 INR 1.09 (0.93-1.08) H 12/09/17 10:00 APTT 28.3 Seconds (25.1-36.5) 11/30/17 05:30 - Constitutional Appears: Chronically Ill - Head Exam Head Exam: NORMAL INSPECTION - Respiratory Exam Respiratory Exam: Decreased Breath Sounds - Cardiovascular Exam Cardiovascular Exam: +S1, +S2 - GI/Abdominal Exam GI & Abdominal Exam: Soft. absent: Tenderness Assessment and Plan - Assessment and Plan (Free Text) Plan: Assessment S/P sepsis due to strep viridans and CoNS bacteremia from right gluteal and back cellulitis S/P multifocal HCAP on top of Influenza A infection S/P Sammie infection of sacral area as well peripheral vascular disease Plan patient had completed 42 days of antibiotics on this admission - continue to monitor clinically off antibiotics since he is at risk for nosocomial infections
[2018-02-28 06:32] LABS: HEMOGLOBIN 10.6 g/dL (14.0-18.0); MEAN CELL VOLUME 86.1 fl (80.0-105.0); MEAN CORPUSCULAR HEMOGLOBIN 27.7 pg (25.0-35.0); MEAN CORPUSCULAR HGB CONC 32.2 g/dl (31.0-37.0); MEAN PLATELET VOLUME 9.1 fl (7.0-11.0); RBC 3.82 10^6/uL (3.5-6.1); RED CELL DISTRIBUTION WIDTH 13.7 % (11.5-14.5); WHITE BLOOD COUNT 9.1 10^3/ul (4.5-11.0)
[2018-02-28 06:54] LABS: BLOOD UREA NITROGEN 17 mg/dL (7-21); CALCIUM 9.8 mg/dL (8.4-10.5); GFR NON-AFRICAN AMERICAN > 60
--- NOTE | 2018-02-28 07:15 | CP.PCM.PN ---
<Ady Long - Last Filed: 02/28/18 14:06> Subjective - Date & Time of Evaluation Date of Evaluation: 02/28/18 Time of Evaluation: 07:13 - Subjective Subjective: Patient seen and examined at bedside. No complaints at this time. No changes overnight. Objective - Vital Signs/Intake and Output Vital Signs (last 24 hours): Temp Pulse Resp BP Pulse Ox 97.9 F 99 H 19 123/77 95 02/27/18 16:00 02/27/18 16:00 02/27/18 16:00 02/27/18 16:00 02/27/18 16:00 Intake and Output: 02/28/18 02/28/18 06:59 18:59 Intake Total 780 Balance 780 - Medications Medications: Current Medications Amlodipine Besylate (Norvasc) 10 mg PO DAILY [facility] Last Admin: 02/27/18 09:22 Dose: 10 mg Aspirin (Ecotrin) 81 mg PO DAILY [facility] Last Admin: 02/27/18 09:22 Dose: 81 mg Atorvastatin Calcium (Lipitor) 20 mg PO DIN [facility] Last Admin: 02/27/18 17:16 Dose: 20 mg Citalopram Hydrobromide (Celexa) 10 mg PO DAILY [facility] Last Admin: 02/27/18 09:22 Dose: 10 mg Enoxaparin Sodium (Lovenox) 40 mg SC DAILY [facility] PRN Reason: Protocol Last Admin: 02/27/18 09:57 Dose: 40 mg Folic Acid (Folic Acid) 1 mg PO DAILY [facility] Last Admin: 02/27/18 09:22 Dose: 1 mg Insulin Human Regular (Humulin R Low) 0 units SC [facility] PRN Reason: Protocol Last Admin: 02/27/18 21:35 Dose: Not Given Lisinopril (Zestril) 10 mg PO DAILY [facility] Last Admin: 02/27/18 09:22 Dose: 10 mg Metformin HCl (Glucophage) 500 mg PO BID [facility] Last Admin: 02/27/18 17:16 Dose: 500 mg Multivitamins/Minerals (Therapeutic-M Tab) 1 tab PO 0800 [facility] Last Admin: 02/27/18 09:22 Dose: 1 tab Thiamine HCl (Vitamin B1 Tab) 100 mg PO DAILY [facility] Last Admin: 02/27/18 09:22 Dose: 100 mg Zinc Sulfate (Zinc Sulfate 220 Mg Cap) 220 mg PO DAILY [facility] Last Admin: 02/27/18 09:22 Dose: 220 mg - Labs Labs: 02/28/18 06:00 02/28/18 06:00 PT 12.5 SECONDS (9.4-12.5) 12/09/17 10:00 INR 1.09 (0.93-1.08) H 12/09/17 10:00 APTT 28.3 Seconds (25.1-36.5) 11/30/17 05:30 - Constitutional Appears: Well - Head Exam Head Exam: ATRAUMATIC, NORMAL INSPECTION, NORMOCEPHALIC - Eye Exam Eye Exam: EOMI, Normal appearance, PERRL Pupil Exam: NORMAL ACCOMODATION, PERRL - ENT Exam ENT Exam: Mucous Membranes Moist, Normal Exam - Neck Exam Neck Exam: Full ROM, Normal Inspection. absent: Lymphadenopathy - Respiratory Exam Respiratory Exam: Clear to Ausculation Bilateral, NORMAL BREATHING PATTERN - Cardiovascular Exam Cardiovascular Exam: REGULAR RHYTHM, +S1, +S2. absent: Murmur - GI/Abdominal Exam GI & Abdominal Exam: Soft, Normal Bowel Sounds. absent: Tenderness - Exam Speculum exam: NORMAL SPECULUM EXAM - Extremities Exam Extremities Exam: absent: Joint Swelling, Pedal Edema - Neurological Exam Neurological Exam: Alert, Awake, CN II-XII Intact, Normal Gait, Oriented x3 - Psychiatric Exam Psychiatric exam: Normal Affect, Normal Mood - Skin Skin Exam: Dry, Intact, Normal Color, Warm Assessment and Plan - Assessment and Plan (Free Text) Assessment: (1) Altered mental status Assessment & Plan: resolved- currently at baseline mentation which waxes and wanes Delirium precautions Patient mentation clinically unchanged, able to answer simple questions with simple answers, poor insight Likely secondary to depression vs. previous brain injury in form of metabolic encephalopathy vs residual stroke deficits PT reordered to evaluate for deconditioning, patient still refusing to participate Status: Resolved (2) Ischemic stroke Status: Acute (3) Coag negative Staphylococcus bacteremia Assessment & Plan: Last bld clx negative 12/04/17 with completion of 6 week course of antibiotics Monitor WBC, ESR, CRP weekly Echocardiogram unable to rule out vegetations, family is unavailable for consent for TAHIR Status: Resolved (4) Stage 1 decubitus ulcer Assessment & Plan: Patient refuses to get out of bed to chair Refusing activity with PT Skin break down noticed on lateral posterior lower back/hip Continue with Q2 turns Folic acid, Thiamine, Zinc daily Air mattress Wound care consult Off loading boots Status: Acute (5) Colonic mass Assessment & Plan: CT Abd/Pelvis showing colonic mass and hepatic lesions GI consulted and following patient Flex sig/colonoscopy refused by patient at this time Family unable to be contacted for consent Status: Chronic (6) Diabetes mellitus type 2 in nonobese Assessment & Plan: HgA1c is 7.4 Continue ISS low Metformin 500mg BID Carb consistent diet Status: Chronic (7) HTN (hypertension) Status: Acute (8) Affective disorder Assessment & Plan: Celexa 10mg PO Daily Status: Chronic (9) Prophylactic measure Assessment & Plan: No GI PPX indicated this time SCDs Dispo: Patient lacks decision making capacity and is unable to comprehend his diagnosis, medical treatment, potential benefit and risk associated with and without treatment. Guardianship paperwork being processed followed by potential placement. Court scheduled for 03/24 concerning guardianship Status: Acute <Deanna Schumacher - Last Filed: 02/28/18 17:05> Objective - Vital Signs/Intake and Output Vital Signs (last 24 hours): Temp Pulse Resp BP Pulse Ox 97.4 F L 95 H 20 111/79 95 02/28/18 08:44 02/28/18 08:44 02/28/18 08:44 02/28/18 10:34 02/28/18 08:44 Intake and Output: 02/28/18 02/28/18 06:59 18:59 Intake Total 780 780 Balance 780 780 - Medications Medications: Current Medications Amlodipine Besylate (Norvasc) 10 mg PO DAILY [facility] Last Admin: 02/28/18 10:34 Dose: 10 mg Aspirin (Ecotrin) 81 mg PO DAILY [facility] Last Admin: 02/28/18 10:33 Dose: 81 mg Atorvastatin Calcium (Lipitor) 20 mg PO DIN [facility] Last Admin: 02/27/18 17:16 Dose: 20 mg Citalopram Hydrobromide (Celexa) 10 mg PO DAILY [facility] Last Admin: 02/28/18 10:33 Dose: 10 mg Enoxaparin Sodium (Lovenox) 40 mg SC DAILY [facility] PRN Reason: Protocol Last Admin: 02/28/18 10:49 Dose: 40 mg Folic Acid (Folic Acid) 1 mg PO DAILY [facility] Last Admin: 02/28/18 10:34 Dose: 1 mg Insulin Human Regular (Humulin R Low) 0 units SC ACHS [facility] PRN Reason: Protocol Last Admin: 02/28/18 12:42 Dose: Not Given Lisinopril (Zestril) 10 mg PO DAILY [facility] Last Admin: 02/28/18 10:35 Dose: 10 mg Metformin HCl (Glucophage) 500 mg PO BID [facility] Last Admin: 02/28/18 10:34 Dose: 500 mg Multivitamins/Minerals (Therapeutic-M Tab) 1 tab PO 0800 [facility] Last Admin: 02/28/18 10:37 Dose: 1 tab Thiamine HCl (Vitamin B1 Tab) 100 mg PO DAILY [facility] Last Admin: 02/28/18 10:35 Dose: 100 mg Zinc Sulfate (Zinc Sulfate 220 Mg Cap) 220 mg PO DAILY [facility] Last Admin: 02/28/18 10:35 Dose: 220 mg - Labs Labs: 02/28/18 06:00 02/28/18 06:00 PT 12.5 SECONDS (9.4-12.5) 12/09/17 10:00 INR 1.09 (0.93-1.08) H 12/09/17 10:00 APTT 28.3 Seconds (25.1-36.5) 11/30/17 05:30 Attending/Attestation - Attestation I have personally seen and examined this patient.: Yes I have fully participated in the care of the patient.: Yes I have reviewed all pertinent clinical information, including history, physical exam and plan: Yes Notes (Text): 02/28/18 17:04 Patient is stable at his base line. He is alert and denies any complaints. Still refusing to get out of the bed and participate in PT. Mental status is at base line. \He is awaiting guardianship paper work for placement. Encourage incentive spirometry and physical therapy. Prognosis is guarded.
[2018-02-28] MEDS: Insulin Reg-LOW-Coverage SC SCH ×4 (07:30→22:27)
[2018-02-28] MEDS: Multivitamin With Minerals Tab PO SCH (10:37)
[2018-02-28] MEDS: Enoxaparin 40 mg Syringe SC SCH (10:49)
--- NOTE | 2018-02-28 11:21 | CP.PCM.PN ---
Subjective - Date & Time of Evaluation Date of Evaluation: 02/28/18 Time of Evaluation: 09:55 - Subjective Subjective: Comfortable in bed, no fevers, not in distress. Objective - Vital Signs/Intake and Output Vital Signs (last 24 hours): Temp Pulse Resp BP Pulse Ox 97.4 F L 95 H 20 111/79 95 02/28/18 08:44 02/28/18 08:44 02/28/18 08:44 02/28/18 08:44 02/28/18 08:44 Intake and Output: 02/28/18 02/28/18 06:59 18:59 Intake Total 780 Balance 780 - Medications Medications: Current Medications Amlodipine Besylate (Norvasc) 10 mg PO DAILY [facility] Last Admin: 02/27/18 09:22 Dose: 10 mg Aspirin (Ecotrin) 81 mg PO DAILY [facility] Last Admin: 02/27/18 09:22 Dose: 81 mg Atorvastatin Calcium (Lipitor) 20 mg PO DIN [facility] Last Admin: 02/27/18 17:16 Dose: 20 mg Citalopram Hydrobromide (Celexa) 10 mg PO DAILY [facility] Last Admin: 02/27/18 09:22 Dose: 10 mg Enoxaparin Sodium (Lovenox) 40 mg SC DAILY [facility] PRN Reason: Protocol Last Admin: 02/27/18 09:57 Dose: 40 mg Folic Acid (Folic Acid) 1 mg PO DAILY [facility] Last Admin: 02/27/18 09:22 Dose: 1 mg Insulin Human Regular (Humulin R Low) 0 units SC [facility] PRN Reason: Protocol Last Admin: 02/27/18 21:35 Dose: Not Given Lisinopril (Zestril) 10 mg PO DAILY [facility] Last Admin: 02/27/18 09:22 Dose: 10 mg Metformin HCl (Glucophage) 500 mg PO BID [facility] Last Admin: 02/27/18 17:16 Dose: 500 mg Multivitamins/Minerals (Therapeutic-M Tab) 1 tab PO 0800 [facility] Last Admin: 02/27/18 09:22 Dose: 1 tab Thiamine HCl (Vitamin B1 Tab) 100 mg PO DAILY [facility] Last Admin: 02/27/18 09:22 Dose: 100 mg Zinc Sulfate (Zinc Sulfate 220 Mg Cap) 220 mg PO DAILY [facility] Last Admin: 02/27/18 09:22 Dose: 220 mg - Labs Labs: 02/28/18 06:00 02/28/18 06:00 PT 12.5 SECONDS (9.4-12.5) 12/09/17 10:00 INR 1.09 (0.93-1.08) H 12/09/17 10:00 APTT 28.3 Seconds (25.1-36.5) 11/30/17 05:30 - Constitutional Appears: Non-toxic, Chronically Ill - Head Exam Head Exam: NORMAL INSPECTION - Respiratory Exam Respiratory Exam: Decreased Breath Sounds - Cardiovascular Exam Cardiovascular Exam: +S1, +S2 - GI/Abdominal Exam GI & Abdominal Exam: Soft. absent: Tenderness Assessment and Plan - Assessment and Plan (Free Text) Plan: Assessment S/P sepsis due to strep viridans and CoNS bacteremia from right gluteal and back cellulitis S/P multifocal HCAP on top of Influenza A infection S/P Sammie infection of sacral area as well peripheral vascular disease Plan patient had completed 42 days of antibiotics on this admission - continue to monitor clinically off antibiotics since he is at risk for hospital-acquired infections
[2018-03-01] MEDS: Insulin Reg-LOW-Coverage SC SCH ×4 (08:15→22:18)
--- NOTE | 2018-03-01 08:41 | CP.PCM.PN ---
<Ady Long - Last Filed: 03/01/18 08:38> Subjective - Date & Time of Evaluation Date of Evaluation: 03/01/18 Time of Evaluation: 08:38 - Subjective Subjective: Patient is seen and examined at bedside. Doing well with no complaints at this time. Still refusing to get out of bed or participate in PT. No new problems at this time. Objective - Vital Signs/Intake and Output Vital Signs (last 24 hours): Temp Pulse Resp BP Pulse Ox 98.1 F 89 19 121/80 95 03/01/18 08:12 03/01/18 08:12 03/01/18 08:12 03/01/18 08:12 03/01/18 08:12 Intake and Output: 03/01/18 03/01/18 06:59 18:59 Intake Total 900 Balance 900 - Medications Medications: Current Medications Amlodipine Besylate (Norvasc) 10 mg PO DAILY [facility] Last Admin: 02/28/18 10:34 Dose: 10 mg Aspirin (Ecotrin) 81 mg PO DAILY [facility] Last Admin: 02/28/18 10:33 Dose: 81 mg Atorvastatin Calcium (Lipitor) 20 mg PO DIN [facility] Last Admin: 02/28/18 18:22 Dose: 20 mg Citalopram Hydrobromide (Celexa) 10 mg PO DAILY [facility] Last Admin: 02/28/18 10:33 Dose: 10 mg Enoxaparin Sodium (Lovenox) 40 mg SC DAILY [facility] PRN Reason: Protocol Last Admin: 02/28/18 10:49 Dose: 40 mg Folic Acid (Folic Acid) 1 mg PO DAILY [facility] Last Admin: 02/28/18 10:34 Dose: 1 mg Insulin Human Regular (Humulin R Low) 0 units SC [facility] PRN Reason: Protocol Last Admin: 03/01/18 08:15 Dose: Not Given Lisinopril (Zestril) 10 mg PO DAILY [facility] Last Admin: 02/28/18 10:35 Dose: 10 mg Metformin HCl (Glucophage) 500 mg PO BID [facility] Last Admin: 02/28/18 18:21 Dose: 500 mg Multivitamins/Minerals (Therapeutic-M Tab) 1 tab PO 0800 [facility] Last Admin: 02/28/18 10:37 Dose: 1 tab Thiamine HCl (Vitamin B1 Tab) 100 mg PO DAILY [facility] Last Admin: 02/28/18 10:35 Dose: 100 mg Zinc Sulfate (Zinc Sulfate 220 Mg Cap) 220 mg PO DAILY [facility] Last Admin: 02/28/18 10:35 Dose: 220 mg - Labs Labs: 02/28/18 06:00 02/28/18 06:00 PT 12.5 SECONDS (9.4-12.5) 12/09/17 10:00 INR 1.09 (0.93-1.08) H 12/09/17 10:00 APTT 28.3 Seconds (25.1-36.5) 11/30/17 05:30 - Constitutional Appears: Well - Head Exam Head Exam: ATRAUMATIC, NORMAL INSPECTION, NORMOCEPHALIC - Eye Exam Eye Exam: EOMI, Normal appearance, PERRL Pupil Exam: NORMAL ACCOMODATION, PERRL - ENT Exam ENT Exam: Mucous Membranes Moist, Normal Exam - Neck Exam Neck Exam: Full ROM, Normal Inspection. absent: Lymphadenopathy - Respiratory Exam Respiratory Exam: Clear to Ausculation Bilateral, NORMAL BREATHING PATTERN - Cardiovascular Exam Cardiovascular Exam: REGULAR RHYTHM, +S1, +S2. absent: Murmur - GI/Abdominal Exam GI & Abdominal Exam: Soft, Normal Bowel Sounds. absent: Tenderness - Extremities Exam Extremities Exam: Full ROM, Normal Capillary Refill, Normal Inspection. absent : Joint Swelling, Pedal Edema - Back Exam Back Exam: NORMAL INSPECTION - Neurological Exam Neurological Exam: Alert, Awake, CN II-XII Intact, Normal Gait, Oriented x3 - Psychiatric Exam Psychiatric exam: Normal Affect, Normal Mood - Skin Skin Exam: Dry, Intact, Normal Color, Warm Assessment and Plan - Assessment and Plan (Free Text) Assessment: (1) Altered mental status Assessment & Plan: resolved- currently at baseline mentation which waxes and wanes Delirium precautions Patient mentation clinically unchanged, able to answer simple questions with simple answers, poor insight Likely secondary to depression vs. previous brain injury in form of metabolic encephalopathy vs residual stroke deficits PT reordered to evaluate for deconditioning, patient still refusing to participate Status: Resolved (2) Ischemic stroke Status: Acute (3) Coag negative Staphylococcus bacteremia Assessment & Plan: Last bld clx negative 12/04/17 with completion of 6 week course of antibiotics Monitor WBC, ESR, CRP weekly Echocardiogram unable to rule out vegetations, family is unavailable for consent for TAHIR Status: Resolved (4) Stage 1 decubitus ulcer Assessment & Plan: Patient refuses to get out of bed to chair Refusing activity with PT Skin break down noticed on lateral posterior lower back/hip Continue with Q2 turns Folic acid, Thiamine, Zinc daily Air mattress Wound care consult Off loading boots Status: Acute (5) Colonic mass Assessment & Plan: CT Abd/Pelvis showing colonic mass and hepatic lesions GI consulted and following patient Flex sig/colonoscopy refused by patient at this time Family unable to be contacted for consent Status: Chronic (6) Diabetes mellitus type 2 in nonobese Assessment & Plan: HgA1c is 7.4 Continue ISS low Metformin 500mg BID Carb consistent diet Status: Chronic (7) HTN (hypertension) Status: Acute (8) Affective disorder Assessment & Plan: Celexa 10mg PO Daily Status: Chronic (9) Prophylactic measure Assessment & Plan: No GI PPX indicated this time SCDs Dispo: Patient lacks decision making capacity and is unable to comprehend his diagnosis, medical treatment, potential benefit and risk associated with and without treatment. Guardianship paperwork being processed followed by potential placement. Court scheduled for 03/24 concerning guardianship Status: Acute <Deanna Schumacher - Last Filed: 03/01/18 16:35> Objective - Vital Signs/Intake and Output Vital Signs (last 24 hours): Temp Pulse Resp BP Pulse Ox 97.6 F 92 H 20 140/80 98 03/01/18 16:19 03/01/18 16:19 03/01/18 16:19 03/01/18 16:19 03/01/18 16:19 Intake and Output: 03/01/18 03/01/18 06:59 18:59 Intake Total 900 480 Balance 900 480 - Medications Medications: Current Medications Amlodipine Besylate (Norvasc) 10 mg PO DAILY [facility] Last Admin: 03/01/18 09:06 Dose: 10 mg Aspirin (Ecotrin) 81 mg PO DAILY [facility] Last Admin: 03/01/18 09:06 Dose: 81 mg Atorvastatin Calcium (Lipitor) 20 mg PO DIN [facility] Last Admin: 02/28/18 18:22 Dose: 20 mg Citalopram Hydrobromide (Celexa) 10 mg PO DAILY [facility] Last Admin: 03/01/18 09:06 Dose: 10 mg Enoxaparin Sodium (Lovenox) 40 mg SC DAILY [facility] PRN Reason: Protocol Last Admin: 03/01/18 16:10 Dose: 40 mg Folic Acid (Folic Acid) 1 mg PO DAILY [facility] Last Admin: 03/01/18 09:06 Dose: 1 mg Insulin Human Regular (Humulin R Low) 0 units SC ACHS [facility] PRN Reason: Protocol Last Admin: 03/01/18 11:36 Dose: Not Given Lisinopril (Zestril) 10 mg PO DAILY [facility] Last Admin: 03/01/18 09:06 Dose: 10 mg Metformin HCl (Glucophage) 500 mg PO BID [facility] Last Admin: 03/01/18 09:06 Dose: 500 mg Multivitamins/Minerals (Therapeutic-M Tab) 1 tab PO 0800 [facility] Last Admin: 03/01/18 09:06 Dose: 1 tab Thiamine HCl (Vitamin B1 Tab) 100 mg PO DAILY [facility] Last Admin: 03/01/18 09:06 Dose: 100 mg Zinc Sulfate (Zinc Sulfate 220 Mg Cap) 220 mg PO DAILY [facility] Last Admin: 03/01/18 09:06 Dose: 220 mg - Labs Labs: 02/28/18 06:00 02/28/18 06:00 PT 12.5 SECONDS (9.4-12.5) 12/09/17 10:00 INR 1.09 (0.93-1.08) H 12/09/17 10:00 APTT 28.3 Seconds (25.1-36.5) 11/30/17 05:30 Attending/Attestation - Attestation I have personally seen and examined this patient.: Yes I have fully participated in the care of the patient.: Yes I have reviewed all pertinent clinical information, including history, physical exam and plan: Yes Notes (Text): 03/01/18 16:34 Medical record note made by the resident after discussion with my direction and input after the patient was personally seen and examined by me. I have reviewed the chart and agree that the record accurately reflects by personal performance of the history, physical exam, data review, and medical decision-making, in the course for the patient. I have also personally directed the plan of care.
[2018-03-01] MEDS: Multivitamin With Minerals Tab PO SCH (09:06)
--- NOTE | 2018-03-01 11:42 | CP.PCM.PN ---
Subjective - Date & Time of Evaluation Date of Evaluation: 03/01/18 Time of Evaluation: 09:35 - Subjective Subjective: Comfortable, no fevers, no diarrhea. Objective - Vital Signs/Intake and Output Vital Signs (last 24 hours): Temp Pulse Resp BP Pulse Ox 98.8 F 100 H 20 114/68 97 02/28/18 17:33 02/28/18 17:33 02/28/18 17:33 02/28/18 17:33 02/28/18 17:33 Intake and Output: 02/28/18 03/01/18 18:59 06:59 Intake Total 780 900 Balance 780 900 - Medications Medications: Current Medications Amlodipine Besylate (Norvasc) 10 mg PO DAILY [facility] Last Admin: 02/28/18 10:34 Dose: 10 mg Aspirin (Ecotrin) 81 mg PO DAILY [facility] Last Admin: 02/28/18 10:33 Dose: 81 mg Atorvastatin Calcium (Lipitor) 20 mg PO DIN [facility] Last Admin: 02/28/18 18:22 Dose: 20 mg Citalopram Hydrobromide (Celexa) 10 mg PO DAILY [facility] Last Admin: 02/28/18 10:33 Dose: 10 mg Enoxaparin Sodium (Lovenox) 40 mg SC DAILY [facility] PRN Reason: Protocol Last Admin: 02/28/18 10:49 Dose: 40 mg Folic Acid (Folic Acid) 1 mg PO DAILY [facility] Last Admin: 02/28/18 10:34 Dose: 1 mg Insulin Human Regular (Humulin R Low) 0 units SC [facility] PRN Reason: Protocol Last Admin: 02/28/18 22:27 Dose: Not Given Lisinopril (Zestril) 10 mg PO DAILY [facility] Last Admin: 02/28/18 10:35 Dose: 10 mg Metformin HCl (Glucophage) 500 mg PO BID [facility] Last Admin: 02/28/18 18:21 Dose: 500 mg Multivitamins/Minerals (Therapeutic-M Tab) 1 tab PO 0800 [facility] Last Admin: 02/28/18 10:37 Dose: 1 tab Thiamine HCl (Vitamin B1 Tab) 100 mg PO DAILY [facility] Last Admin: 02/28/18 10:35 Dose: 100 mg Zinc Sulfate (Zinc Sulfate 220 Mg Cap) 220 mg PO DAILY [facility] Last Admin: 02/28/18 10:35 Dose: 220 mg - Labs Labs: 02/28/18 06:00 02/28/18 06:00 PT 12.5 SECONDS (9.4-12.5) 12/09/17 10:00 INR 1.09 (0.93-1.08) H 12/09/17 10:00 APTT 28.3 Seconds (25.1-36.5) 11/30/17 05:30 - Constitutional Appears: Chronically Ill - Head Exam Head Exam: NORMAL INSPECTION - Respiratory Exam Respiratory Exam: Decreased Breath Sounds - Cardiovascular Exam Cardiovascular Exam: +S1, +S2 - GI/Abdominal Exam GI & Abdominal Exam: Soft. absent: Tenderness Assessment and Plan - Assessment and Plan (Free Text) Plan: Assessment S/P sepsis due to strep viridans and CoNS bacteremia from right gluteal and back cellulitis S/P multifocal HCAP on top of Influenza A infection S/P Sammie infection of sacral area as well peripheral vascular disease Plan patient had completed 42 days of antibiotics on this admission - continue to monitor clinically off antibiotics since he is at risk for healthcare- associated infections patient waiting for guardianship
[2018-03-01] MEDS: Enoxaparin 40 mg Syringe SC SCH (16:10)
[2018-03-02] MEDS: Insulin Reg-LOW-Coverage SC SCH ×3 (07:59→22:33)
[2018-03-02] MEDS: Multivitamin With Minerals Tab PO SCH (08:03)
[2018-03-02] MEDS: Enoxaparin 40 mg Syringe SC SCH (09:24)
--- NOTE | 2018-03-02 12:55 | CP.PCM.PN ---
<Ady Long - Last Filed: 03/02/18 12:53> Subjective - Date & Time of Evaluation Date of Evaluation: 03/02/18 Time of Evaluation: 12:53 - Subjective Subjective: Patient seen and examined at bedside. Doing well. No changes at this time. Still refusing to participate in PT at this time. Objective - Vital Signs/Intake and Output Vital Signs (last 24 hours): Temp Pulse Resp BP Pulse Ox 97.4 F L 103 H 20 130/70 97 03/02/18 08:27 03/02/18 09:25 03/02/18 08:27 03/02/18 09:25 03/02/18 08:27 Intake and Output: 03/02/18 03/02/18 06:59 18:59 Intake Total 840 120 Balance 840 120 - Medications Medications: Current Medications Amlodipine Besylate (Norvasc) 10 mg PO DAILY [facility] Aspirin (Ecotrin) 81 mg PO DAILY [facility] Atorvastatin Calcium (Lipitor) 20 mg PO DIN [facility] Citalopram Hydrobromide (Celexa) 10 mg PO DAILY [facility] Enoxaparin Sodium (Lovenox) 40 mg SC DAILY [facility] PRN Reason: Protocol Folic Acid (Folic Acid) 1 mg PO DAILY [facility] Insulin Human Regular (Humulin R Low) 0 units SC ACHS [facility] PRN Reason: Protocol Lisinopril (Zestril) 10 mg PO DAILY [facility] Metformin HCl (Glucophage) 500 mg PO BID [facility] Multivitamins/Minerals (Therapeutic-M Tab) 1 tab PO 0800 [facility] Thiamine HCl (Vitamin B1 Tab) 100 mg PO DAILY [facility] Zinc Sulfate (Zinc Sulfate 220 Mg Cap) 220 mg PO DAILY [facility] - Labs Labs: 02/28/18 06:00 02/28/18 06:00 PT 12.5 SECONDS (9.4-12.5) 12/09/17 10:00 INR 1.09 (0.93-1.08) H 12/09/17 10:00 APTT 28.3 Seconds (25.1-36.5) 11/30/17 05:30 - Constitutional Appears: Well - Head Exam Head Exam: ATRAUMATIC, NORMAL INSPECTION, NORMOCEPHALIC - Eye Exam Eye Exam: EOMI, Normal appearance, PERRL Pupil Exam: NORMAL ACCOMODATION, PERRL - ENT Exam ENT Exam: Mucous Membranes Moist, Normal Exam - Neck Exam Neck Exam: Full ROM, Normal Inspection. absent: Lymphadenopathy - Respiratory Exam Respiratory Exam: Clear to Ausculation Bilateral, NORMAL BREATHING PATTERN - Cardiovascular Exam Cardiovascular Exam: REGULAR RHYTHM, +S1, +S2. absent: Murmur - GI/Abdominal Exam GI & Abdominal Exam: Soft, Normal Bowel Sounds. absent: Tenderness - Extremities Exam Extremities Exam: Full ROM, Normal Capillary Refill, Normal Inspection. absent : Joint Swelling, Pedal Edema - Back Exam Back Exam: NORMAL INSPECTION - Neurological Exam Neurological Exam: Alert, Awake, CN II-XII Intact, Normal Gait, Oriented x3 - Psychiatric Exam Psychiatric exam: Normal Affect, Normal Mood - Skin Skin Exam: Dry, Intact, Normal Color, Warm Assessment and Plan - Assessment and Plan (Free Text) Assessment: (1) Altered mental status Assessment & Plan: resolved- currently at baseline mentation which waxes and wanes Delirium precautions Patient mentation clinically unchanged, able to answer simple questions with simple answers, poor insight Likely secondary to depression vs. previous brain injury in form of metabolic encephalopathy vs residual stroke deficits PT reordered to evaluate for deconditioning, patient still refusing to participate Status: Resolved (2) Ischemic stroke Status: Acute (3) Coag negative Staphylococcus bacteremia Assessment & Plan: Last bld clx negative 12/04/17 with completion of 6 week course of antibiotics Monitor WBC, ESR, CRP weekly Echocardiogram unable to rule out vegetations, family is unavailable for consent for TAHIR Status: Resolved (4) Stage 1 decubitus ulcer Assessment & Plan: Patient refuses to get out of bed to chair Refusing activity with PT Skin break down noticed on lateral posterior lower back/hip Continue with Q2 turns Folic acid, Thiamine, Zinc daily Air mattress Wound care consult Off loading boots Status: Acute (5) Colonic mass Assessment & Plan: CT Abd/Pelvis showing colonic mass and hepatic lesions GI consulted and following patient Flex sig/colonoscopy refused by patient at this time Family unable to be contacted for consent Status: Chronic (6) Diabetes mellitus type 2 in nonobese Assessment & Plan: HgA1c is 7.4 Continue ISS low Metformin 500mg BID Carb consistent diet Status: Chronic (7) HTN (hypertension) Status: Acute (8) Affective disorder Assessment & Plan: Celexa 10mg PO Daily Status: Chronic (9) Prophylactic measure Assessment & Plan: No GI PPX indicated this time SCDs Dispo: Patient lacks decision making capacity and is unable to comprehend his diagnosis, medical treatment, potential benefit and risk associated with and without treatment. Guardianship paperwork being processed followed by potential placement. Court scheduled for 03/24 concerning guardianship Status: Acute <Deanna Schumacher - Last Filed: 03/03/18 14:17> Objective - Vital Signs/Intake and Output Vital Signs (last 24 hours): Temp Pulse Resp BP Pulse Ox 97.3 F L 98 H 20 120/83 96 03/03/18 07:53 03/03/18 09:24 03/03/18 07:53 03/03/18 09:24 03/03/18 07:53 Intake and Output: 03/03/18 03/03/18 06:59 18:59 Intake Total 960 Balance 960 - Medications Medications: Current Medications Amlodipine Besylate (Norvasc) 10 mg PO DAILY [facility] Last Admin: 03/03/18 09:23 Dose: 10 mg Aspirin (Ecotrin) 81 mg PO DAILY [facility] Last Admin: 03/03/18 09:23 Dose: 81 mg Atorvastatin Calcium (Lipitor) 20 mg PO DIN [facility] Last Admin: 03/02/18 17:00 Dose: 20 mg Citalopram Hydrobromide (Celexa) 10 mg PO DAILY [facility] Last Admin: 03/03/18 09:23 Dose: 10 mg Enoxaparin Sodium (Lovenox) 40 mg SC DAILY [facility] PRN Reason: Protocol Last Admin: 03/03/18 09:24 Dose: 40 mg Folic Acid (Folic Acid) 1 mg PO DAILY [facility] Last Admin: 03/03/18 09:46 Dose: 1 mg Insulin Human Regular (Humulin R Low) 0 units SC [facility] PRN Reason: Protocol Last Admin: 03/03/18 12:04 Dose: 1 units Lisinopril (Zestril) 10 mg PO DAILY [facility] Last Admin: 03/03/18 09:24 Dose: 10 mg Metformin HCl (Glucophage) 500 mg PO BID [facility] Last Admin: 03/03/18 09:23 Dose: 500 mg Multivitamins/Minerals (Therapeutic-M Tab) 1 tab PO 0800 [facility] Last Admin: 03/03/18 08:47 Dose: 1 tab Thiamine HCl (Vitamin B1 Tab) 100 mg PO DAILY [facility] Last Admin: 03/03/18 09:23 Dose: 100 mg Zinc Sulfate (Zinc Sulfate 220 Mg Cap) 220 mg PO DAILY [facility] Last Admin: 03/03/18 09:23 Dose: 220 mg - Labs Labs: 02/28/18 06:00 02/28/18 06:00 PT 12.5 SECONDS (9.4-12.5) 12/09/17 10:00 INR 1.09 (0.93-1.08) H 12/09/17 10:00 APTT 28.3 Seconds (25.1-36.5) 11/30/17 05:30 Attending/Attestation - Attestation I have personally seen and examined this patient.: Yes I have fully participated in the care of the patient.: Yes I have reviewed all pertinent clinical information, including history, physical exam and plan: Yes Notes (Text): 03/03/18 14:16 Medical record note made by the resident after discussion with my direction and input after the patient was personally seen and examined by me. I have reviewed the chart and agree that the record accurately reflects by personal performance of the history, physical exam, data review, and medical decision-making, in the course for the patient. I have also personally directed the plan of care. Patient is stable at base line,Mental status is at base line.he is awaiting for guardianship papper work for placement.He need to be encouraged to ambulate and also need frequent change of position to avoid decubitus ulcer. Prognosis is guarded.
--- NOTE | 2018-03-03 00:33 | PN ---
DATE: 03/02/2018 SUBJECTIVE: The patient is in bed, in no acute distress, nontoxic, was seen early this morning in room 363, bed #1. PHYSICAL EXAMINATION VITAL SIGNS: Temperature is 97, blood pressure is 130/70. Respiratory rate of 16. HEENT: Unremarkable. NECK: Supple. LUNGS: Have decreased breath sounds. HEART: Normal S1, S2. ABDOMEN: Soft. LABORATORY DATA: Reveals a white count of 9.1, hemoglobin of 10, platelets of 411. Chemistries reveals the patient BUN, creatinine 0.6. Review of orders reveals the patient to be off of antibiotics. PLAN: This is a 57-year-old male with sepsis due to Streptococcus viridans, coag-negative staph bacteremia, right gluteal and back cellulitis and multiple healthcare-associated pneumonia, palpable influenza A infection, completed 42 days of antibiotics. Currently off of antibiotics, afebrile. The patient is at risk for developing nosocomial infections. Daniel Torres MD
[2018-03-03] MEDS: Multivitamin With Minerals Tab PO SCH (08:47)
[2018-03-03] MEDS: Insulin Reg-LOW-Coverage SC SCH ×4 (08:47→21:39)
[2018-03-03] MEDS: Enoxaparin 40 mg Syringe SC SCH (09:24)
--- NOTE | 2018-03-03 13:24 | CP.PCM.PN ---
<Ady Long - Last Filed: 03/03/18 13:21> Subjective - Date & Time of Evaluation Date of Evaluation: 03/03/18 Time of Evaluation: 13:24 - Subjective Subjective: Patient was seen and examined at bedside. Again he is refusing to get out of bed despite being informed of the risks of not participating in PT or getting out of bed to chair. No other changes at this time. Objective - Vital Signs/Intake and Output Vital Signs (last 24 hours): Temp Pulse Resp BP Pulse Ox 97.3 F L 98 H 20 120/83 96 03/03/18 07:53 03/03/18 09:24 03/03/18 07:53 03/03/18 09:24 03/03/18 07:53 Intake and Output: 03/03/18 03/03/18 06:59 18:59 Intake Total 960 Balance 960 - Medications Medications: Current Medications Amlodipine Besylate (Norvasc) 10 mg PO DAILY [facility] Last Admin: 03/03/18 09:23 Dose: 10 mg Aspirin (Ecotrin) 81 mg PO DAILY [facility] Last Admin: 03/03/18 09:23 Dose: 81 mg Atorvastatin Calcium (Lipitor) 20 mg PO DIN [facility] Last Admin: 03/02/18 17:00 Dose: 20 mg Citalopram Hydrobromide (Celexa) 10 mg PO DAILY [facility] Last Admin: 03/03/18 09:23 Dose: 10 mg Enoxaparin Sodium (Lovenox) 40 mg SC DAILY [facility] PRN Reason: Protocol Last Admin: 03/03/18 09:24 Dose: 40 mg Folic Acid (Folic Acid) 1 mg PO DAILY [facility] Last Admin: 03/03/18 09:46 Dose: 1 mg Insulin Human Regular (Humulin R Low) 0 units SC ACHS [facility] PRN Reason: Protocol Last Admin: 03/03/18 12:04 Dose: 1 units Lisinopril (Zestril) 10 mg PO DAILY [facility] Last Admin: 03/03/18 09:24 Dose: 10 mg Metformin HCl (Glucophage) 500 mg PO BID [facility] Last Admin: 03/03/18 09:23 Dose: 500 mg Multivitamins/Minerals (Therapeutic-M Tab) 1 tab PO 0800 [facility] Last Admin: 03/03/18 08:47 Dose: 1 tab Thiamine HCl (Vitamin B1 Tab) 100 mg PO DAILY [facility] Last Admin: 03/03/18 09:23 Dose: 100 mg Zinc Sulfate (Zinc Sulfate 220 Mg Cap) 220 mg PO DAILY [facility] Last Admin: 03/03/18 09:23 Dose: 220 mg - Labs Labs: 02/28/18 06:00 02/28/18 06:00 PT 12.5 SECONDS (9.4-12.5) 12/09/17 10:00 INR 1.09 (0.93-1.08) H 12/09/17 10:00 APTT 28.3 Seconds (25.1-36.5) 11/30/17 05:30 - Constitutional Appears: Well - Head Exam Head Exam: ATRAUMATIC, NORMAL INSPECTION, NORMOCEPHALIC - Eye Exam Eye Exam: EOMI, Normal appearance, PERRL Pupil Exam: NORMAL ACCOMODATION, PERRL - ENT Exam ENT Exam: Mucous Membranes Moist, Normal Exam - Neck Exam Neck Exam: Full ROM, Normal Inspection. absent: Lymphadenopathy - Respiratory Exam Respiratory Exam: Clear to Ausculation Bilateral, NORMAL BREATHING PATTERN - Cardiovascular Exam Cardiovascular Exam: REGULAR RHYTHM, +S1, +S2. absent: Murmur - GI/Abdominal Exam GI & Abdominal Exam: Soft, Normal Bowel Sounds. absent: Tenderness - Extremities Exam Extremities Exam: Full ROM, Normal Capillary Refill, Normal Inspection. absent : Joint Swelling, Pedal Edema - Back Exam Back Exam: NORMAL INSPECTION Additional comments: sacral decubitus ulcer - Neurological Exam Neurological Exam: Alert, Awake, CN II-XII Intact, Normal Gait, Oriented x3 - Psychiatric Exam Psychiatric exam: Normal Affect, Normal Mood - Skin Skin Exam: Dry, Normal Color, Warm. absent: Intact Assessment and Plan - Assessment and Plan (Free Text) Assessment: (1) Altered mental status Assessment & Plan: resolved- currently at baseline mentation which waxes and wanes Delirium precautions Patient mentation clinically unchanged, able to answer simple questions with simple answers, poor insight Likely secondary to depression vs. previous brain injury in form of metabolic encephalopathy vs residual stroke deficits PT reordered to evaluate for deconditioning, patient still refusing to participate Status: Resolved (2) Ischemic stroke Status: Acute (3) Coag negative Staphylococcus bacteremia Assessment & Plan: Last bld clx negative 12/04/17 with completion of 6 week course of antibiotics Monitor WBC, ESR, CRP weekly Echocardiogram unable to rule out vegetations, family is unavailable for consent for TAHIR Status: Resolved (4) Stage 1 decubitus ulcer Assessment & Plan: Patient refuses to get out of bed to chair Refusing activity with PT Skin break down noticed on lateral posterior lower back/hip Continue with Q2 turns Folic acid, Thiamine, Zinc daily Air mattress Wound care consult Off loading boots Status: Acute (5) Colonic mass Assessment & Plan: CT Abd/Pelvis showing colonic mass and hepatic lesions GI consulted and following patient Flex sig/colonoscopy refused by patient at this time Family unable to be contacted for consent Status: Chronic (6) Diabetes mellitus type 2 in nonobese Assessment & Plan: HgA1c is 7.4 Continue ISS low Metformin 500mg BID Carb consistent diet Status: Chronic (7) HTN (hypertension) Status: Acute (8) Affective disorder Assessment & Plan: Celexa 10mg PO Daily Status: Chronic (9) Prophylactic measure Assessment & Plan: No GI PPX indicated this time SCDs Dispo: Patient lacks decision making capacity and is unable to comprehend his diagnosis, medical treatment, potential benefit and risk associated with and without treatment. Guardianship paperwork being processed followed by potential placement. Court scheduled for 03/24 concerning guardianship Status: Acute <Deanna Schumacher - Last Filed: 03/03/18 14:18> Objective - Vital Signs/Intake and Output Vital Signs (last 24 hours): Temp Pulse Resp BP Pulse Ox 97.3 F L 98 H 20 120/83 96 03/03/18 07:53 03/03/18 09:24 03/03/18 07:53 03/03/18 09:24 03/03/18 07:53 Intake and Output: 03/03/18 03/03/18 06:59 18:59 Intake Total 960 Balance 960 - Medications Medications: Current Medications Amlodipine Besylate (Norvasc) 10 mg PO DAILY [facility] Last Admin: 03/03/18 09:23 Dose: 10 mg Aspirin (Ecotrin) 81 mg PO DAILY [facility] Last Admin: 03/03/18 09:23 Dose: 81 mg Atorvastatin Calcium (Lipitor) 20 mg PO DIN [facility] Last Admin: 03/02/18 17:00 Dose: 20 mg Citalopram Hydrobromide (Celexa) 10 mg PO DAILY [facility] Last Admin: 03/03/18 09:23 Dose: 10 mg Enoxaparin Sodium (Lovenox) 40 mg SC DAILY [facility] PRN Reason: Protocol Last Admin: 03/03/18 09:24 Dose: 40 mg Folic Acid (Folic Acid) 1 mg PO DAILY [facility] Last Admin: 03/03/18 09:46 Dose: 1 mg Insulin Human Regular (Humulin R Low) 0 units SC ACHS [facility] PRN Reason: Protocol Last Admin: 03/03/18 12:04 Dose: 1 units Lisinopril (Zestril) 10 mg PO DAILY [facility] Last Admin: 03/03/18 09:24 Dose: 10 mg Metformin HCl (Glucophage) 500 mg PO BID [facility] Last Admin: 03/03/18 09:23 Dose: 500 mg Multivitamins/Minerals (Therapeutic-M Tab) 1 tab PO 0800 [facility] Last Admin: 03/03/18 08:47 Dose: 1 tab Thiamine HCl (Vitamin B1 Tab) 100 mg PO DAILY [facility] Last Admin: 03/03/18 09:23 Dose: 100 mg Zinc Sulfate (Zinc Sulfate 220 Mg Cap) 220 mg PO DAILY [facility] Last Admin: 03/03/18 09:23 Dose: 220 mg - Labs Labs: 02/28/18 06:00 02/28/18 06:00 PT 12.5 SECONDS (9.4-12.5) 12/09/17 10:00 INR 1.09 (0.93-1.08) H 12/09/17 10:00 APTT 28.3 Seconds (25.1-36.5) 11/30/17 05:30 Attending/Attestation - Attestation I have fully participated in the care of the patient.: Yes I have reviewed all pertinent clinical information, including history, physical exam and plan: Yes Notes (Text): 03/03/18 14:17 Medical record note made by the resident after discussion with my direction and input after the patient was personally seen and examined by me. I have reviewed the chart and agree that the record accurately reflects by personal performance of the history, physical exam, data review, and medical decision-making, in the course for the patient. I have also personally directed the plan of care. Patient is stable at base line,.There was no overnight issue. Mental status is at base line.he is awaiting for guardianship paper work for placement.He was encouraged to ambulate and also need frequent change of position to avoid decubitus ulcer. Prognosis is guarded.
--- NOTE | 2018-03-03 15:08 | PN ---
DATE: 03/03/2018 SUBJECTIVE: The patient is in bed, in no acute distress. PHYSICAL EXAMINATION: VITAL SIGNS: Temperature is 97, blood pressure is 120/80, respiratory rate of 20, heart rate of 98. Examination of HEENT is unremarkable. NECK: Supple. LUNGS: Have decreased breath sounds. HEART: Normal S1, S2. ABDOMEN: Soft. Review of medications and orders reveals the patient to be off of antibiotics. ASSESSMENT AND PLAN: A 57-year-old male, who was admitted with sepsis due to Streptococcus viridans and coag-negative Staphylococcus bacteremia with right gluteal and back cellulitis, multiple healthcare-associated pneumonia, probable influenza infection, influenza A. Completed 42 days of therapy. Currently off of antibiotics, afebrile. At risk for developing nosocomial infections. Daniel Torres MD
[2018-03-04] MEDS: Insulin Reg-LOW-Coverage SC SCH ×3 (09:31→17:10)
[2018-03-04] MEDS: Enoxaparin 40 mg Syringe SC SCH (09:33)
[2018-03-04] MEDS: Multivitamin With Minerals Tab PO SCH (09:34)
--- NOTE | 2018-03-04 12:44 | CP.PCM.PN ---
<Ady Long - Last Filed: 03/04/18 12:42> Subjective - Date & Time of Evaluation Date of Evaluation: 03/04/18 Time of Evaluation: 12:42 - Subjective Subjective: Patient seen and examined at bedside. No new complaints at this time. Still refusing to get out of bed or get into chair. Objective - Vital Signs/Intake and Output Vital Signs (last 24 hours): Temp Pulse Resp BP Pulse Ox 97.4 F L 93 H 18 133/84 96 03/04/18 06:00 03/04/18 09:34 03/04/18 06:00 03/04/18 09:34 03/04/18 06:00 - Medications Medications: Current Medications Amlodipine Besylate (Norvasc) 10 mg PO DAILY [facility] Last Admin: 03/04/18 09:33 Dose: 10 mg Aspirin (Ecotrin) 81 mg PO DAILY [facility] Last Admin: 03/04/18 09:31 Dose: 81 mg Atorvastatin Calcium (Lipitor) 20 mg PO DIN [facility] Last Admin: 03/03/18 17:06 Dose: 20 mg Citalopram Hydrobromide (Celexa) 10 mg PO DAILY [facility] Last Admin: 03/04/18 09:31 Dose: 10 mg Enoxaparin Sodium (Lovenox) 40 mg SC DAILY [facility] PRN Reason: Protocol Last Admin: 03/04/18 09:33 Dose: 40 mg Folic Acid (Folic Acid) 1 mg PO DAILY [facility] Last Admin: 03/04/18 09:31 Dose: 1 mg Insulin Human Regular (Humulin R Low) 0 units SC ACHS [facility] PRN Reason: Protocol Last Admin: 03/04/18 12:41 Dose: 1 units Lisinopril (Zestril) 10 mg PO DAILY [facility] Last Admin: 03/04/18 09:34 Dose: 10 mg Metformin HCl (Glucophage) 500 mg PO BID [facility] Last Admin: 03/04/18 09:31 Dose: 500 mg Multivitamins/Minerals (Therapeutic-M Tab) 1 tab PO 0800 [facility] Last Admin: 03/04/18 09:34 Dose: 1 tab Thiamine HCl (Vitamin B1 Tab) 100 mg PO DAILY [facility] Last Admin: 03/04/18 09:34 Dose: 100 mg Zinc Sulfate (Zinc Sulfate 220 Mg Cap) 220 mg PO DAILY [facility] Last Admin: 03/04/18 09:34 Dose: 220 mg - Labs Labs: 02/28/18 06:00 02/28/18 06:00 PT 12.5 SECONDS (9.4-12.5) 12/09/17 10:00 INR 1.09 (0.93-1.08) H 12/09/17 10:00 APTT 28.3 Seconds (25.1-36.5) 11/30/17 05:30 - Constitutional Appears: Well - Head Exam Head Exam: ATRAUMATIC, NORMAL INSPECTION, NORMOCEPHALIC - Eye Exam Eye Exam: EOMI, Normal appearance, PERRL Pupil Exam: NORMAL ACCOMODATION, PERRL - ENT Exam ENT Exam: Mucous Membranes Moist, Normal Exam - Neck Exam Neck Exam: Full ROM, Normal Inspection. absent: Lymphadenopathy - Respiratory Exam Respiratory Exam: Clear to Ausculation Bilateral, NORMAL BREATHING PATTERN - Cardiovascular Exam Cardiovascular Exam: REGULAR RHYTHM, +S1, +S2. absent: Murmur - GI/Abdominal Exam GI & Abdominal Exam: Soft, Normal Bowel Sounds. absent: Tenderness - Extremities Exam Extremities Exam: Full ROM, Normal Capillary Refill, Normal Inspection. absent : Joint Swelling, Pedal Edema - Back Exam Back Exam: NORMAL INSPECTION - Neurological Exam Neurological Exam: Alert, Awake, CN II-XII Intact, Normal Gait, Oriented x3 - Psychiatric Exam Psychiatric exam: Normal Affect, Normal Mood - Skin Skin Exam: Dry, Intact, Normal Color, Warm Assessment and Plan - Assessment and Plan (Free Text) Assessment: (1) Altered mental status Assessment & Plan: resolved- currently at baseline mentation which waxes and wanes Delirium precautions Patient mentation clinically unchanged, able to answer simple questions with simple answers, poor insight Likely secondary to depression vs. previous brain injury in form of metabolic encephalopathy vs residual stroke deficits PT reordered to evaluate for deconditioning, patient still refusing to participate Status: Resolved (2) Ischemic stroke Status: Acute (3) Coag negative Staphylococcus bacteremia Assessment & Plan: Last bld clx negative 12/04/17 with completion of 6 week course of antibiotics Monitor WBC, ESR, CRP weekly Echocardiogram unable to rule out vegetations, family is unavailable for consent for TAHIR Status: Resolved (4) Stage 1 decubitus ulcer Assessment & Plan: Patient refuses to get out of bed to chair Refusing activity with PT Skin break down noticed on lateral posterior lower back/hip Continue with Q2 turns Folic acid, Thiamine, Zinc daily Air mattress Wound care consult Off loading boots Status: Acute (5) Colonic mass Assessment & Plan: CT Abd/Pelvis showing colonic mass and hepatic lesions GI consulted and following patient Flex sig/colonoscopy refused by patient at this time Family unable to be contacted for consent Status: Chronic (6) Diabetes mellitus type 2 in nonobese Assessment & Plan: HgA1c is 7.4 Continue ISS low Metformin 500mg BID Carb consistent diet Status: Chronic (7) HTN (hypertension) Status: Acute (8) Affective disorder Assessment & Plan: Celexa 10mg PO Daily Status: Chronic (9) Prophylactic measure Assessment & Plan: No GI PPX indicated this time SCDs Dispo: Patient lacks decision making capacity and is unable to comprehend his diagnosis, medical treatment, potential benefit and risk associated with and without treatment. Guardianship paperwork being processed followed by potential placement. Court scheduled for 03/24 concerning guardianship Status: Acute <Deanna Schumacher - Last Filed: 03/05/18 13:28> Objective - Vital Signs/Intake and Output Vital Signs (last 24 hours): Temp Pulse Resp BP Pulse Ox 97.3 F L 90 20 135/88 95 03/05/18 08:20 03/05/18 09:20 03/05/18 08:20 03/05/18 09:20 03/05/18 08:20 - Medications Medications: Current Medications Amlodipine Besylate (Norvasc) 10 mg PO DAILY [facility] Last Admin: 03/05/18 09:20 Dose: 10 mg Aspirin (Ecotrin) 81 mg PO DAILY [facility] Last Admin: 03/05/18 09:20 Dose: 81 mg Atorvastatin Calcium (Lipitor) 20 mg PO DIN [facility] Last Admin: 03/04/18 17:10 Dose: 20 mg Citalopram Hydrobromide (Celexa) 10 mg PO DAILY [facility] Last Admin: 03/05/18 09:20 Dose: 10 mg Enoxaparin Sodium (Lovenox) 40 mg SC DAILY [facility] PRN Reason: Protocol Last Admin: 03/05/18 09:21 Dose: 40 mg Folic Acid (Folic Acid) 1 mg PO DAILY [facility] Last Admin: 03/05/18 09:20 Dose: 1 mg Insulin Human Regular (Humulin R Low) 0 units SC [facility] PR[facility] Reason: Protocol Last Admin: 03/05/18 08:43 Dose: Not Given Lisinopril (Zestril) 10 mg PO DAILY [facility] Last Admin: 03/05/18 09:20 Dose: 10 mg Metformin HCl (Glucophage) 500 mg PO BID [facility] Last Admin: 03/05/18 09:20 Dose: 500 mg Multivitamins/Minerals (Therapeutic-M Tab) 1 tab PO 0800 [facility] Last Admin: 03/05/18 09:20 Dose: 1 tab Thiamine HCl (Vitamin B1 Tab) 100 mg PO DAILY [facility] Last Admin: 03/05/18 09:20 Dose: 100 mg Zinc Sulfate (Zinc Sulfate 220 Mg Cap) 220 mg PO DAILY [facility] Last Admin: 03/05/18 09:20 Dose: 220 mg - Labs Labs: 02/28/18 06:00 02/28/18 06:00 PT 12.5 SECONDS (9.4-12.5) 12/09/17 10:00 INR 1.09 (0.93-1.08) H 12/09/17 10:00 APTT 28.3 Seconds (25.1-36.5) 11/30/17 05:30 Attending/Attestation - Attestation I have personally seen and examined this patient.: Yes I have fully participated in the care of the patient.: Yes I have reviewed all pertinent clinical information, including history, physical exam and plan: Yes Notes (Text): 03/05/18 13:27 Medical record note made by the resident after discussion with my direction and input after the patient was personally seen and examined by me. I have reviewed the chart and agree that the record accurately reflects by personal performance of the history, physical exam, data review, and medical decision-making, in the course for the patient. I have also personally directed the plan of care.
--- NOTE | 2018-03-04 13:43 | CP.PCM.PN ---
Subjective - Date & Time of Evaluation Date of Evaluation: 03/04/18 Time of Evaluation: 10:50 - Subjective Subjective: No fevers, not in distress, no diarrhea. Objective - Vital Signs/Intake and Output Vital Signs (last 24 hours): Temp Pulse Resp BP Pulse Ox 97.4 F L 93 H 18 133/84 96 03/04/18 06:00 03/04/18 09:34 03/04/18 06:00 03/04/18 09:34 03/04/18 06:00 - Medications Medications: Current Medications Amlodipine Besylate (Norvasc) 10 mg PO DAILY [facility] Last Admin: 03/04/18 09:33 Dose: 10 mg Aspirin (Ecotrin) 81 mg PO DAILY [facility] Last Admin: 03/04/18 09:31 Dose: 81 mg Atorvastatin Calcium (Lipitor) 20 mg PO DIN [facility] Last Admin: 03/03/18 17:06 Dose: 20 mg Citalopram Hydrobromide (Celexa) 10 mg PO DAILY [facility] Last Admin: 03/04/18 09:31 Dose: 10 mg Enoxaparin Sodium (Lovenox) 40 mg SC DAILY [facility] PRN Reason: Protocol Last Admin: 03/04/18 09:33 Dose: 40 mg Folic Acid (Folic Acid) 1 mg PO DAILY [facility] Last Admin: 03/04/18 09:31 Dose: 1 mg Insulin Human Regular (Humulin R Low) 0 units SC [facility] PRN Reason: Protocol Last Admin: 03/04/18 09:31 Dose: Not Given Lisinopril (Zestril) 10 mg PO DAILY [facility] Last Admin: 03/04/18 09:34 Dose: 10 mg Metformin HCl (Glucophage) 500 mg PO BID [facility] Last Admin: 03/04/18 09:31 Dose: 500 mg Multivitamins/Minerals (Therapeutic-M Tab) 1 tab PO 0800 [facility] Last Admin: 03/04/18 09:34 Dose: 1 tab Thiamine HCl (Vitamin B1 Tab) 100 mg PO DAILY [facility] Last Admin: 03/04/18 09:34 Dose: 100 mg Zinc Sulfate (Zinc Sulfate 220 Mg Cap) 220 mg PO DAILY [facility] Last Admin: 03/04/18 09:34 Dose: 220 mg - Labs Labs: 02/28/18 06:00 02/28/18 06:00 PT 12.5 SECONDS (9.4-12.5) 12/09/17 10:00 INR 1.09 (0.93-1.08) H 12/09/17 10:00 APTT 28.3 Seconds (25.1-36.5) 11/30/17 05:30 - Constitutional Appears: Chronically Ill - Head Exam Head Exam: NORMAL INSPECTION - Neck Exam Neck Exam: absent: Meningismus - Respiratory Exam Respiratory Exam: Decreased Breath Sounds - Cardiovascular Exam Cardiovascular Exam: +S1, +S2 - GI/Abdominal Exam GI & Abdominal Exam: Soft. absent: Tenderness Assessment and Plan - Assessment and Plan (Free Text) Plan: Assessment S/P sepsis due to strep viridans and CoNS bacteremia from right gluteal and back cellulitis S/P multifocal HCAP on top of Influenza A infection S/P Sammie infection of sacral area as well peripheral vascular disease Plan patient had completed 42 days of antibiotics on this admission - continue to monitor clinically off antibiotics since he is at risk for nosocomial infections patient waiting for guardianship
[2018-03-05] MEDS: Insulin Reg-LOW-Coverage SC SCH ×5 (00:05→22:49)
[2018-03-05] MEDS: Multivitamin With Minerals Tab PO SCH (09:20)
[2018-03-05] MEDS: Enoxaparin 40 mg Syringe SC SCH (09:21)
--- NOTE | 2018-03-05 12:06 | PN ---
DATE: 03/05/2018 SUBJECTIVE: The patient is in bed, in no acute distress, nontoxic. No fevers and chills. PHYSICAL EXAMINATION: VITAL SIGNS: Temperature is 97, blood pressure is 130/80, respiratory rate of 20, heart rate of 90. HEENT: Examination of HEENT is unremarkable. NECK: Supple. LUNGS: Have decreased breath sounds. HEART: Normal S1 and S2. ABDOMEN: Soft, nontender. LABORATORY DATA: Laboratory examination reveals a white count of 9.1. Review of the orders reveals the patient to be off of antibiotics. ASSESSMENT AND PLAN: A 57-year-old male, seen earlier today in 363, bed 1 with sepsis due to Streptococcus viridans and coagulase-negative Staphylococcus bacteremia from right gluteal and back cellulitis, status post multifocal healthcare-associated pneumonia on top of influenza A infection and Sammie infection and has completed 42 days of antibiotics. Currently off of antibiotics, afebrile, in no acute distress, nontoxic, however, at risk for developing nosocomial infections. Daniel Torres MD
[2018-03-06] MEDS: Insulin Reg-LOW-Coverage SC SCH ×4 (08:28→22:38)
[2018-03-06] MEDS: Enoxaparin 40 mg Syringe SC SCH (10:01)
[2018-03-06] MEDS: Multivitamin With Minerals Tab PO SCH (10:03)
--- NOTE | 2018-03-06 14:16 | PN ---
DATE: 03/06/2018 SUBJECTIVE: The patient is in bed, in no acute distress, nontoxic. PHYSICAL EXAMINATION: VITAL SIGNS: Temperature is 98, blood pressure is 120/80, respiratory rate of 20, heart rate of 89. HEENT: Unremarkable. NECK: Supple. LUNGS: Have decreased breath sounds. HEART: Normal S1 and S2. ABDOMEN: Soft, nontender. LABORATORY DATA: Reveals a white count of 9.1, hemoglobin of 10, platelets of 411. Chemistries reveal a BUN of 17 and creatinine of 0.6. ASSESSMENT AND PLAN: This is a 57-year-old male, seen earlier today in 363 with sepsis due to Streptococcus viridans and coagulase-negative Staphylococcus bacteremia, right gluteal and back cellulitis, status post multifocal healthcare-associated pneumonia on top of influenza A, and has a Sammie infection, and he has completed 42 days of antibiotics, currently off of antibiotics, and afebrile; however, the patient is at risk for developing nosocomial infections and awaiting for placement. Encouraged not to have heparin lock to minimize development of nosocomial infection. Daniel Torres MD
[2018-03-07 06:38] LABS: HEMOGLOBIN 11.2 g/dL (14.0-18.0); MEAN CELL VOLUME 84.7 fl (80.0-105.0); MEAN CORPUSCULAR HEMOGLOBIN 27.7 pg (25.0-35.0); MEAN CORPUSCULAR HGB CONC 32.7 g/dl (31.0-37.0); MEAN PLATELET VOLUME 9.1 fl (7.0-11.0); RBC 4.04 10^6/uL (3.5-6.1); RED CELL DISTRIBUTION WIDTH 13.5 % (11.5-14.5); WHITE BLOOD COUNT 8.9 10^3/ul (4.5-11.0)
[2018-03-07 07:50] LABS: BLOOD UREA NITROGEN 16 mg/dL (7-21); CALCIUM 9.4 mg/dL (8.4-10.5); GFR NON-AFRICAN AMERICAN > 60
[2018-03-07] MEDS: Insulin Reg-LOW-Coverage SC SCH ×4 (08:08→21:33)
[2018-03-07] MEDS: Multivitamin With Minerals Tab PO SCH (09:27)
[2018-03-07] MEDS: Enoxaparin 40 mg Syringe SC SCH (09:27)
--- NOTE | 2018-03-07 12:46 | CP.PCM.PN ---
<Ady Long - Last Filed: 03/07/18 12:43> Subjective - Date & Time of Evaluation Date of Evaluation: 03/07/18 Time of Evaluation: 12:43 - Subjective Subjective: Patient seen and examined at bedside. No new complaints at this time. Still refusing to sit up in bed or get out of bed to chair. Refusing to participate in PT. Objective - Vital Signs/Intake and Output Vital Signs (last 24 hours): Temp Pulse Resp BP Pulse Ox 97.7 F 92 H 20 112/76 95 03/07/18 07:55 03/07/18 09:27 03/07/18 07:55 03/07/18 09:28 03/07/18 07:55 - Medications Medications: Current Medications Amlodipine Besylate (Norvasc) 10 mg PO DAILY [facility] Last Admin: 03/07/18 09:28 Dose: 10 mg Aspirin (Ecotrin) 81 mg PO DAILY [facility] Last Admin: 03/07/18 09:27 Dose: 81 mg Atorvastatin Calcium (Lipitor) 20 mg PO DIN [facility] Last Admin: 03/06/18 18:14 Dose: 20 mg Citalopram Hydrobromide (Celexa) 10 mg PO DAILY [facility] Last Admin: 03/07/18 09:27 Dose: 10 mg Enoxaparin Sodium (Lovenox) 40 mg SC DAILY [facility] PRN Reason: Protocol Last Admin: 03/07/18 09:27 Dose: 40 mg Folic Acid (Folic Acid) 1 mg PO DAILY [facility] Last Admin: 03/07/18 09:27 Dose: 1 mg Insulin Human Regular (Humulin R Low) 0 units SC ACHS [facility] PRN Reason: Protocol Last Admin: 03/07/18 11:33 Dose: Not Given Lisinopril (Zestril) 10 mg PO DAILY [facility] Last Admin: 03/07/18 09:27 Dose: 10 mg Metformin HCl (Glucophage) 500 mg PO BID [facility] Last Admin: 03/07/18 09:27 Dose: 500 mg Multivitamins/Minerals (Therapeutic-M Tab) 1 tab PO 0800 [facility] Last Admin: 03/07/18 09:27 Dose: 1 tab Thiamine HCl (Vitamin B1 Tab) 100 mg PO DAILY [facility] Last Admin: 03/07/18 09:27 Dose: 100 mg Zinc Sulfate (Zinc Sulfate 220 Mg Cap) 220 mg PO DAILY [facility] Last Admin: 03/07/18 09:27 Dose: 220 mg - Labs Labs: 03/07/18 06:00 03/07/18 06:00 PT 12.5 SECONDS (9.4-12.5) 12/09/17 10:00 INR 1.09 (0.93-1.08) H 12/09/17 10:00 APTT 28.3 Seconds (25.1-36.5) 11/30/17 05:30 - Constitutional Appears: Well - Head Exam Head Exam: ATRAUMATIC, NORMAL INSPECTION, NORMOCEPHALIC - Eye Exam Eye Exam: EOMI, Normal appearance, PERRL Pupil Exam: NORMAL ACCOMODATION, PERRL - ENT Exam ENT Exam: Mucous Membranes Moist, Normal Exam - Neck Exam Neck Exam: Full ROM, Normal Inspection. absent: Lymphadenopathy - Respiratory Exam Respiratory Exam: Clear to Ausculation Bilateral, NORMAL BREATHING PATTERN - Cardiovascular Exam Cardiovascular Exam: REGULAR RHYTHM, +S1, +S2. absent: Murmur - GI/Abdominal Exam GI & Abdominal Exam: Soft, Normal Bowel Sounds. absent: Tenderness - Extremities Exam Extremities Exam: Full ROM, Normal Capillary Refill, Normal Inspection. absent : Joint Swelling, Pedal Edema - Back Exam Back Exam: NORMAL INSPECTION - Neurological Exam Neurological Exam: Alert, Awake, CN II-XII Intact, Normal Gait, Oriented x3 - Psychiatric Exam Psychiatric exam: Normal Affect, Normal Mood - Skin Skin Exam: Dry, Intact, Normal Color, Warm Assessment and Plan - Assessment and Plan (Free Text) Assessment: (1) Altered mental status Assessment & Plan: resolved- currently at baseline mentation which waxes and wanes Delirium precautions Patient mentation clinically unchanged, able to answer simple questions with simple answers, poor insight Likely secondary to depression vs. previous brain injury in form of metabolic encephalopathy vs residual stroke deficits PT reordered to evaluate for deconditioning, patient still refusing to participate Status: Resolved (2) Ischemic stroke Status: Acute (3) Coag negative Staphylococcus bacteremia Assessment & Plan: Last bld clx negative 12/04/17 with completion of 6 week course of antibiotics Monitor WBC, ESR, CRP weekly Echocardiogram unable to rule out vegetations, family is unavailable for consent for TAHIR Status: Resolved (4) Stage 1 decubitus ulcer Assessment & Plan: Patient refuses to get out of bed to chair Refusing activity with PT Skin break down noticed on lateral posterior lower back/hip Continue with Q2 turns Folic acid, Thiamine, Zinc daily Air mattress Wound care consult Off loading boots Status: Acute (5) Colonic mass Assessment & Plan: CT Abd/Pelvis showing colonic mass and hepatic lesions GI consulted and following patient Flex sig/colonoscopy refused by patient at this time Family unable to be contacted for consent Status: Chronic (6) Diabetes mellitus type 2 in nonobese Assessment & Plan: HgA1c is 7.4 Continue ISS low Metformin 500mg BID Carb consistent diet Status: Chronic (7) HTN (hypertension) Status: Acute (8) Affective disorder Assessment & Plan: Celexa 10mg PO Daily Status: Chronic (9) Prophylactic measure Assessment & Plan: No GI PPX indicated this time SCDs Dispo: Patient lacks decision making capacity and is unable to comprehend his diagnosis, medical treatment, potential benefit and risk associated with and without treatment. Guardianship paperwork being processed followed by potential placement. Court scheduled for 03/24 concerning guardianship Status: Acute <Charlotte Lim - Last Filed: 03/07/18 13:54> Objective - Vital Signs/Intake and Output Vital Signs (last 24 hours): Temp Pulse Resp BP Pulse Ox 97.7 F 92 H 20 112/76 95 03/07/18 07:55 03/07/18 09:27 03/07/18 07:55 03/07/18 09:28 03/07/18 07:55 - Medications Medications: Current Medications Amlodipine Besylate (Norvasc) 10 mg PO DAILY [facility] Last Admin: 03/07/18 09:28 Dose: 10 mg Aspirin (Ecotrin) 81 mg PO DAILY [facility] Last Admin: 03/07/18 09:27 Dose: 81 mg Atorvastatin Calcium (Lipitor) 20 mg PO DIN [facility] Last Admin: 03/06/18 18:14 Dose: 20 mg Citalopram Hydrobromide (Celexa) 10 mg PO DAILY [facility] Last Admin: 03/07/18 09:27 Dose: 10 mg Enoxaparin Sodium (Lovenox) 40 mg SC DAILY [facility] PRN Reason: Protocol Last Admin: 03/07/18 09:27 Dose: 40 mg Folic Acid (Folic Acid) 1 mg PO DAILY [facility] Last Admin: 03/07/18 09:27 Dose: 1 mg Insulin Human Regular (Humulin R Low) 0 units SC ACHS [facility] PRN Reason: Protocol Last Admin: 03/07/18 11:33 Dose: Not Given Lisinopril (Zestril) 10 mg PO DAILY [facility] Last Admin: 03/07/18 09: Dose: 10 mg Metformin HCl (Glucophage) 500 mg PO BID [facility] Last Admin: 03/07/18: Dose: 500 mg Multivitamins/Minerals (Therapeutic-M Tab) 1 tab PO 0800 [facility] Last Admin: 03/07/18: Dose: 1 tab Thiamine HCl (Vitamin B1 Tab) 100 mg PO DAILY [facility] Last Admin: 03/07/18 Dose: 100 mg Zinc Sulfate (Zinc Sulfate 220 Mg Cap) 220 mg PO DAILY [facility] Last Admin: 03/07/18 Dose: 220 mg - Labs Labs: 03/07/18 06:00 03/07/18 06:00 PT 12.5 SECONDS (9.4-12.5) 12/09/17 10:00 INR 1.09 (0.93-1.08) H 12/09/17 10:00 APTT 28.3 Seconds (25.1-36.5) 11/30/17 05:30 Attending/Attestation - Attestation I have personally seen and examined this patient.: Yes I have fully participated in the care of the patient.: Yes I have reviewed all pertinent clinical information, including history, physical exam and plan: Yes Notes (Text): I have seen and examined the patient at bedside. Agree with the above note dictated by the resident. Patient is awake, alert and denies any complaints. There were no acute events overnight. Still refusing to get out of the bed and participate in PT. Mental status is at base line. He is awaiting guardianship paper work for placement. Encourage incentive spirometry and physical therapy. Upon discharge patient will follow up with PMD of choice.
--- NOTE | 2018-03-07 17:24 | CP.PCM.PN ---
Subjective - Date & Time of Evaluation Date of Evaluation: 03/07/18 Time of Evaluation: 10:15 - Subjective Subjective: Comfortable, no diarrhea, no fevers. Objective - Vital Signs/Intake and Output Vital Signs (last 24 hours): Temp Pulse Resp BP Pulse Ox 97.7 F 92 H 20 112/76 95 03/07/18 07:55 03/07/18 09:27 03/07/18 07:55 03/07/18 09:28 03/07/18 07:55 Intake and Output: 03/07/18 03/07/18 06:59 18:59 Intake Total 480 Balance 480 - Medications Medications: Current Medications Amlodipine Besylate (Norvasc) 10 mg PO DAILY [facility] Last Admin: 03/07/18 09:28 Dose: 10 mg Aspirin (Ecotrin) 81 mg PO DAILY [facility] Last Admin: 03/07/18 09:27 Dose: 81 mg Atorvastatin Calcium (Lipitor) 20 mg PO DIN [facility] Last Admin: 03/06/18 18:14 Dose: 20 mg Citalopram Hydrobromide (Celexa) 10 mg PO DAILY [facility] Last Admin: 03/07/18 09:27 Dose: 10 mg Enoxaparin Sodium (Lovenox) 40 mg SC DAILY [facility] PRN Reason: Protocol Last Admin: 03/07/18 09:27 Dose: 40 mg Folic Acid (Folic Acid) 1 mg PO DAILY [facility] Last Admin: 03/07/18 09:27 Dose: 1 mg Insulin Human Regular (Humulin R Low) 0 units SC ACHS [facility] PRN Reason: Protocol Last Admin: 03/07/18 16:19 Dose: Not Given Lisinopril (Zestril) 10 mg PO DAILY [facility] Last Admin: 03/07/18 09:27 Dose: 10 mg Metformin HCl (Glucophage) 500 mg PO BID [facility] Last Admin: 03/07/18 09:27 Dose: 500 mg Multivitamins/Minerals (Therapeutic-M Tab) 1 tab PO 0800 [facility] Last Admin: 03/07/18 09:27 Dose: 1 tab Thiamine HCl (Vitamin B1 Tab) 100 mg PO DAILY [facility] Last Admin: 03/07/18 09:27 Dose: 100 mg Zinc Sulfate (Zinc Sulfate 220 Mg Cap) 220 mg PO DAILY [facility] Last Admin: 03/07/18 09:27 Dose: 220 mg - Labs Labs: 03/07/18 06:00 03/07/18 06:00 PT 12.5 SECONDS (9.4-12.5) 12/09/17 10:00 INR 1.09 (0.93-1.08) H 12/09/17 10:00 APTT 28.3 Seconds (25.1-36.5) 11/30/17 05:30 - Constitutional Appears: Non-toxic, Chronically Ill - Head Exam Head Exam: NORMAL INSPECTION - ENT Exam ENT Exam: Mucous Membranes Moist - Neck Exam Neck Exam: absent: Meningismus - Respiratory Exam Respiratory Exam: Decreased Breath Sounds. absent: Rales - Cardiovascular Exam Cardiovascular Exam: +S1, +S2 - GI/Abdominal Exam GI & Abdominal Exam: Soft. absent: Tenderness Assessment and Plan - Assessment and Plan (Free Text) Plan: Assessment S/P sepsis due to strep viridans and CoNS bacteremia from right gluteal and back cellulitis S/P multifocal HCAP on top of Influenza A infection S/P Sammie infection of sacral area as well peripheral vascular disease Plan patient had completed 42 days of antibiotics on this admission - continue to monitor clinically off antibiotics since he is at risk for hospital-acquired infections patient waiting for guardianship
--- NOTE | 2018-03-07 21:14 | CP.PCM.PN ---
<Nikita Hurley - Last Filed: 03/07/18 21:48> Subjective - Date & Time of Evaluation Date of Evaluation: 03/05/18 Time of Evaluation: 07:00 - Subjective Subjective: Hospitalist Service: Patient seen and examined at bedside. Patient denies any chest pain, nausea, vomiting, diarrhea. Patient refusing OOB to chair. Nurse reports no events overnight. Objective - Vital Signs/Intake and Output Vital Signs (last 24 hours): Temp Pulse Resp BP Pulse Ox 97.7 F 88 18 109/66 98 03/07/18 17:43 03/07/18 17:43 03/07/18 17:43 03/07/18 17:43 03/07/18 17:43 Intake and Output: 03/07/18 03/08/18 18:59 06:59 Intake Total 480 840 Balance 480 840 - Medications Medications: Current Medications Amlodipine Besylate (Norvasc) 10 mg PO DAILY [facility] Last Admin: 03/07/18 09:28 Dose: 10 mg Aspirin (Ecotrin) 81 mg PO DAILY [facility] Last Admin: 03/07/18 09:27 Dose: 81 mg Atorvastatin Calcium (Lipitor) 20 mg PO DIN [facility] Last Admin: 03/07/18 17:27 Dose: 20 mg Citalopram Hydrobromide (Celexa) 10 mg PO DAILY [facility] Last Admin: 03/07/18 09:27 Dose: 10 mg Enoxaparin Sodium (Lovenox) 40 mg SC DAILY [facility] PRN Reason: Protocol Last Admin: 03/07/18 09:27 Dose: 40 mg Folic Acid (Folic Acid) 1 mg PO DAILY [facility] Last Admin: 03/07/18 09:27 Dose: 1 mg Insulin Human Regular (Humulin R Low) 0 units SC [facility] PRN Reason: Protocol Last Admin: 03/07/18 16:19 Dose: Not Given Lisinopril (Zestril) 10 mg PO DAILY [facility] Last Admin: 03/07/18 09:27 Dose: 10 mg Metformin HCl (Glucophage) 500 mg PO BID [facility] Last Admin: 03/07/18 17:27 Dose: 500 mg Multivitamins/Minerals (Therapeutic-M Tab) 1 tab PO 0800 [facility] Last Admin: 03/07/18 09:27 Dose: 1 tab Thiamine HCl (Vitamin B1 Tab) 100 mg PO DAILY [facility] Last Admin: 03/07/18 09:27 Dose: 100 mg Zinc Sulfate (Zinc Sulfate 220 Mg Cap) 220 mg PO DAILY [facility] Last Admin: 03/07/18 09:27 Dose: 220 mg - Labs Labs: 03/07/18 06:00 03/07/18 06:00 PT 12.5 SECONDS (9.4-12.5) 12/09/17 10:00 INR 1.09 (0.93-1.08) H 12/09/17 10:00 APTT 28.3 Seconds (25.1-36.5) 11/30/17 05:30 - Constitutional Appears: Non-toxic - Head Exam Head Exam: ATRAUMATIC, NORMOCEPHALIC - Eye Exam Eye Exam: EOMI, Normal appearance - ENT Exam ENT Exam: Mucous Membranes Moist - Neck Exam Neck Exam: Normal Inspection - Respiratory Exam Respiratory Exam: Clear to Ausculation Bilateral, NORMAL BREATHING PATTERN. absent: Accessory Muscle Use - Cardiovascular Exam Cardiovascular Exam: RRR, +S1, +S2 - GI/Abdominal Exam GI & Abdominal Exam: Soft, Normal Bowel Sounds - Extremities Exam Extremities Exam: Normal Inspection. absent: Calf Tenderness - Neurological Exam Neurological Exam: Awake - Psychiatric Exam Psychiatric exam: Normal Affect, Normal Mood - Skin Skin Exam: Dry, Intact, Normal Color, Warm Assessment and Plan - Assessment and Plan (Free Text) Assessment: (1) Altered mental status Assessment & Plan: resolved- currently at baseline mentation which waxes and wanes Delirium precautions Patient mentation clinically unchanged, able to answer simple questions with simple answers, poor insight Likely secondary to depression vs. previous brain injury in form of metabolic encephalopathy vs residual stroke deficits PT reordered to evaluate for deconditioning, patient still refusing to participate Status: Resolved (2) Ischemic stroke Status: Acute (3) Coag negative Staphylococcus bacteremia Assessment & Plan: Last bld clx negative 12/04/17 with completion of 6 week course of antibiotics Monitor WBC, ESR, CRP weekly Echocardiogram unable to rule out vegetations, family is unavailable for consent for TAHIR Status: Resolved (4) Stage 1 decubitus ulcer Assessment & Plan: Patient refuses to get out of bed to chair Refusing activity with PT Skin break down noticed on lateral posterior lower back/hip Continue with Q2 turns Folic acid, Thiamine, Zinc daily Air mattress Wound care consult Off loading boots Status: Acute (5) Colonic mass Assessment & Plan: CT Abd/Pelvis showing colonic mass and hepatic lesions GI consulted and following patient Flex sig/colonoscopy refused by patient at this time Family unable to be contacted for consent Status: Chronic (6) Diabetes mellitus type 2 in nonobese Assessment & Plan: HgA1c is 7.4 Continue ISS low Metformin 500mg BID Carb consistent diet Status: Chronic (7) HTN (hypertension) Status: Acute (8) Affective disorder Assessment & Plan: Celexa 10mg PO Daily Status: Chronic (9) Prophylactic measure Assessment & Plan: No GI PPX indicated this time SCDs Dispo: Patient lacks decision making capacity and is unable to comprehend his diagnosis, medical treatment, potential benefit and risk associated with and without treatment. Guardianship paperwork being processed followed by potential placement. Court scheduled for 03/24 concerning guardianship Status: Acute <Deanna Schumacher - Last Filed: 03/12/18 10:54> Objective - Vital Signs/Intake and Output Vital Signs (last 24 hours): Temp Pulse Resp BP Pulse Ox 98.5 F 88 20 132/85 99 03/12/18 06:00 03/12/18 09:50 03/12/18 06:00 03/12/18 09:50 03/12/18 06:00 Intake and Output: 03/12/18 03/12/18 06:59 18:59 Intake Total 120 Balance 120 - Medications Medications: Current Medications Amlodipine Besylate (Norvasc) 10 mg PO DAILY [facility] Last Admin: 03/12/18 09:48 Dose: 10 mg Aspirin (Ecotrin) 81 mg PO DAILY [facility] Last Admin: 03/12/18 09:46 Dose: 81 mg Atorvastatin Calcium (Lipitor) 20 mg PO DIN [facility] Last Admin: 03/11/18 17:12 Dose: 20 mg Citalopram Hydrobromide (Celexa) 10 mg PO DAILY [facility] Last Admin: 03/12/18 09:46 Dose: 10 mg Enoxaparin Sodium (Lovenox) 40 mg SC DAILY [facility] PRN Reason: Protocol Last Admin: 03/12/18 09:48 Dose: 40 mg Folic Acid (Folic Acid) 1 mg PO DAILY [facility] Last Admin: 03/12/18 09:46 Dose: 1 mg Insulin Human Regular (Humulin R Low) 0 units SC [facility] PRN Reason: Protocol Last Admin: 03/12/18 09:46 Dose: Not Given Lisinopril (Zestril) 10 mg PO DAILY [facility] Last Admin: 03/12/18 09:50 Dose: 10 mg Metformin HCl (Glucophage) 500 mg PO BID [facility] Last Admin: 03/12/18 09:46 Dose: 500 mg Multivitamins/Minerals (Therapeutic-M Tab) 1 tab PO 0800 [facility] Last Admin: 03/12/18 09:49 Dose: 1 tab Thiamine HCl (Vitamin B1 Tab) 100 mg PO DAILY [facility] Last Admin: 03/12/18 09:50 Dose: 100 mg Zinc Sulfate (Zinc Sulfate 220 Mg Cap) 220 mg PO DAILY [facility] Last Admin: 03/12/18 09:50 Dose: 220 mg - Labs Labs: 03/07/18 06:00 03/07/18 06:00 PT 12.5 SECONDS (9.4-12.5) 12/09/17 10:00 INR 1.09 (0.93-1.08) H 12/09/17 10:00 APTT 28.3 Seconds (25.1-36.5) 11/30/17 05:30 Attending/Attestation - Attestation I have personally seen and examined this patient.: Yes I have fully participated in the care of the patient.: Yes I have reviewed all pertinent clinical information, including history, physical exam and plan: Yes Notes (Text): 03/12/18 10:54 Medical record note made by the resident after discussion with my direction and input after the patient was personally seen and examined by me. I have reviewed the chart and agree that the record accurately reflects by personal performance of the history, physical exam, data review, and medical decision-making, in the course for the patient. I have also personally directed the plan of care.
--- NOTE | 2018-03-07 21:52 | CP.PCM.PN ---
<XaviEyallona - Last Filed: 03/07/18 21:52> Subjective - Date & Time of Evaluation Date of Evaluation: 03/06/18 Time of Evaluation: 08:50 - Subjective Subjective: Hospitalist Service Patient seen and examined at bedside. Patient denies any chest pain, nausea, vomiting, or diarrhea. Patient appears comfortable. Nurse reports no events overnight. Objective - Vital Signs/Intake and Output Vital Signs (last 24 hours): Temp Pulse Resp BP Pulse Ox 97.7 F 88 18 109/66 98 03/07/18 17:43 03/07/18 17:43 03/07/18 17:43 03/07/18 17:43 03/07/18 17:43 Intake and Output: 03/07/18 03/08/18 18:59 06:59 Intake Total 480 840 Balance 480 840 - Medications Medications: Current Medications Amlodipine Besylate (Norvasc) 10 mg PO DAILY [facility] Last Admin: 03/07/18 09:28 Dose: 10 mg Aspirin (Ecotrin) 81 mg PO DAILY [facility] Last Admin: 03/07/18 09:27 Dose: 81 mg Atorvastatin Calcium (Lipitor) 20 mg PO DIN [facility] Last Admin: 03/07/18 17:27 Dose: 20 mg Citalopram Hydrobromide (Celexa) 10 mg PO DAILY [facility] Last Admin: 03/07/18 09:27 Dose: 10 mg Enoxaparin Sodium (Lovenox) 40 mg SC DAILY [facility] PRN Reason: Protocol Last Admin: 03/07/18 09:27 Dose: 40 mg Folic Acid (Folic Acid) 1 mg PO DAILY [facility] Last Admin: 03/07/18 09:27 Dose: 1 mg Insulin Human Regular (Humulin R Low) 0 units SC [facility] PRN Reason: Protocol Last Admin: 03/07/18 21:33 Dose: Not Given Lisinopril (Zestril) 10 mg PO DAILY [facility] Last Admin: 03/07/18 09:27 Dose: 10 mg Metformin HCl (Glucophage) 500 mg PO BID [facility] Last Admin: 03/07/18 17:27 Dose: 500 mg Multivitamins/Minerals (Therapeutic-M Tab) 1 tab PO 0800 [facility] Last Admin: 03/07/18 09:27 Dose: 1 tab Thiamine HCl (Vitamin B1 Tab) 100 mg PO DAILY [facility] Last Admin: 03/07/18 09:27 Dose: 100 mg Zinc Sulfate (Zinc Sulfate 220 Mg Cap) 220 mg PO DAILY [facility] Last Admin: 03/07/18 09:27 Dose: 220 mg - Labs Labs: 03/07/18 06:00 03/07/18 06:00 PT 12.5 SECONDS (9.4-12.5) 12/09/17 10:00 INR 1.09 (0.93-1.08) H 12/09/17 10:00 APTT 28.3 Seconds (25.1-36.5) 11/30/17 05:30 - Constitutional Appears: Non-toxic - Head Exam Head Exam: ATRAUMATIC, NORMOCEPHALIC - Eye Exam Eye Exam: EOMI, Normal appearance - ENT Exam ENT Exam: Mucous Membranes Moist - Respiratory Exam Respiratory Exam: Clear to Ausculation Bilateral, NORMAL BREATHING PATTERN. absent: Accessory Muscle Use - Cardiovascular Exam Cardiovascular Exam: RRR, +S1, +S2 - GI/Abdominal Exam GI & Abdominal Exam: Soft, Normal Bowel Sounds - Extremities Exam Extremities Exam: Normal Inspection. absent: Calf Tenderness - Neurological Exam Neurological Exam: Awake - Psychiatric Exam Psychiatric exam: Normal Affect, Normal Mood - Skin Skin Exam: Dry, Intact, Normal Color, Warm Assessment and Plan - Assessment and Plan (Free Text) Assessment: (1) Altered mental status Assessment & Plan: resolved- currently at baseline mentation which waxes and wanes Delirium precautions Patient mentation clinically unchanged, able to answer simple questions with simple answers, poor insight Likely secondary to depression vs. previous brain injury in form of metabolic encephalopathy vs residual stroke deficits PT reordered to evaluate for deconditioning, patient still refusing to participate Status: Resolved (2) Ischemic stroke Status: Acute (3) Coag negative Staphylococcus bacteremia Assessment & Plan: Last bld clx negative 12/04/17 with completion of 6 week course of antibiotics Monitor WBC, ESR, CRP weekly Echocardiogram unable to rule out vegetations, family is unavailable for consent for TAHIR Status: Resolved (4) Stage 1 decubitus ulcer Assessment & Plan: Patient refuses to get out of bed to chair Refusing activity with PT Skin break down noticed on lateral posterior lower back/hip Continue with Q2 turns Folic acid, Thiamine, Zinc daily Air mattress Wound care consult Off loading boots Status: Acute (5) Colonic mass Assessment & Plan: CT Abd/Pelvis showing colonic mass and hepatic lesions GI consulted and following patient Flex sig/colonoscopy refused by patient at this time Family unable to be contacted for consent Status: Chronic (6) Diabetes mellitus type 2 in nonobese Assessment & Plan: HgA1c is 7.4 Continue ISS low Metformin 500mg BID Carb consistent diet Status: Chronic (7) HTN (hypertension) Status: Acute (8) Affective disorder Assessment & Plan: Celexa 10mg PO Daily Status: Chronic (9) Prophylactic measure Assessment & Plan: No GI PPX indicated this time SCDs Dispo: Patient lacks decision making capacity and is unable to comprehend his diagnosis, medical treatment, potential benefit and risk associated with and without treatment. Guardianship paperwork being processed followed by potential placement. Court scheduled for 03/24 concerning guardianship Status: Acute <Deanna Schumacher - Last Filed: 03/12/18 10:55> Objective - Vital Signs/Intake and Output Vital Signs (last 24 hours): Temp Pulse Resp BP Pulse Ox 98.5 F 88 20 132/85 99 03/12/18 06:00 03/12/18 09:50 03/12/18 06:00 03/12/18 09:50 03/12/18 06:00 Intake and Output: 03/12/18 03/12/18 06:59 18:59 Intake Total 120 Balance 120 - Medications Medications: Current Medications Amlodipine Besylate (Norvasc) 10 mg PO DAILY [facility] Last Admin: 03/12/18 09:48 Dose: 10 mg Aspirin (Ecotrin) 81 mg PO DAILY [facility] Last Admin: 03/12/18 09:46 Dose: 81 mg Atorvastatin Calcium (Lipitor) 20 mg PO DIN [facility] Last Admin: 03/11/18 17:12 Dose: 20 mg Citalopram Hydrobromide (Celexa) 10 mg PO DAILY [facility] Last Admin: 03/12/18 09:46 Dose: 10 mg Enoxaparin Sodium (Lovenox) 40 mg SC DAILY [facility] PRN Reason: Protocol Last Admin: 03/12/18 09:48 Dose: 40 mg Folic Acid (Folic Acid) 1 mg PO DAILY [facility] Last Admin: 03/12/18 09:46 Dose: 1 mg Insulin Human Regular (Humulin R Low) 0 units SC [facility] PRN Reason: Protocol Last Admin: 03/12/18 09:46 Dose: Not Given Lisinopril (Zestril) 10 mg PO DAILY [facility] Last Admin: 03/12/18 09:50 Dose: 10 mg Metformin HCl (Glucophage) 500 mg PO BID [facility] Last Admin: 03/12/18 09:46 Dose: 500 mg Multivitamins/Minerals (Therapeutic-M Tab) 1 tab PO 0800 [facility] Last Admin: 03/12/18 09:49 Dose: 1 tab Thiamine HCl (Vitamin B1 Tab) 100 mg PO DAILY [facility] Last Admin: 03/12/18 09:50 Dose: 100 mg Zinc Sulfate (Zinc Sulfate 220 Mg Cap) 220 mg PO DAILY [facility] Last Admin: 03/12/18 09:50 Dose: 220 mg - Labs Labs: 03/07/18 06:00 03/07/18 06:00 PT 12.5 SECONDS (9.4-12.5) 12/09/17 10:00 INR 1.09 (0.93-1.08) H 12/09/17 10:00 APTT 28.3 Seconds (25.1-36.5) 11/30/17 05:30 Attending/Attestation - Attestation I have personally seen and examined this patient.: Yes I have fully participated in the care of the patient.: Yes I have reviewed all pertinent clinical information, including history, physical exam and plan: Yes Notes (Text): 03/12/18 10:55 Medical record note made by the resident after discussion with my direction and input after the patient was personally seen and examined by me. I have reviewed the chart and agree that the record accurately reflects by personal performance of the history, physical exam, data review, and medical decision-making, in the course for the patient. I have also personally directed the plan of care.
[2018-03-08] MEDS: Multivitamin With Minerals Tab PO SCH (08:20)
[2018-03-08] MEDS: Insulin Reg-LOW-Coverage SC SCH ×4 (08:20→21:40)
[2018-03-08] MEDS: Enoxaparin 40 mg Syringe SC SCH (10:06)
--- NOTE | 2018-03-08 10:29 | CP.PCM.PN ---
<Ady Long - Last Filed: 03/08/18 10:27> Subjective - Date & Time of Evaluation Date of Evaluation: 03/08/18 Time of Evaluation: 10:27 - Subjective Subjective: Patient seen and examined at bedside. Doing well with no complaints at this time. Still refusing to get out of bed and participate in PT. Objective - Vital Signs/Intake and Output Vital Signs (last 24 hours): Temp Pulse Resp BP Pulse Ox 97 F L 110 H 20 128/84 94 L 03/08/18 07:57 03/08/18 10:06 03/08/18 07:57 03/08/18 10:06 03/08/18 07:57 Intake and Output: 03/08/18 03/08/18 06:59 18:59 Intake Total 840 Balance 840 - Medications Medications: Current Medications Amlodipine Besylate (Norvasc) 10 mg PO DAILY [facility] Last Admin: 03/08/18 10:05 Dose: 10 mg Aspirin (Ecotrin) 81 mg PO DAILY [facility] Last Admin: 03/08/18 10:06 Dose: 81 mg Atorvastatin Calcium (Lipitor) 20 mg PO DIN [facility] Last Admin: 03/07/18 17:27 Dose: 20 mg Citalopram Hydrobromide (Celexa) 10 mg PO DAILY [facility] Last Admin: 03/08/18 10:06 Dose: 10 mg Enoxaparin Sodium (Lovenox) 40 mg SC DAILY [facility] PRN Reason: Protocol Last Admin: 03/08/18 10:06 Dose: 40 mg Folic Acid (Folic Acid) 1 mg PO DAILY [facility] Last Admin: 03/08/18 10:06 Dose: 1 mg Insulin Human Regular (Humulin R Low) 0 units SC [facility] PRN Reason: Protocol Last Admin: 03/08/18 08:20 Dose: 1 units Lisinopril (Zestril) 10 mg PO DAILY [facility] Last Admin: 03/08/18 10:06 Dose: 10 mg Metformin HCl (Glucophage) 500 mg PO BID [facility] Last Admin: 03/08/18 10:06 Dose: 500 mg Multivitamins/Minerals (Therapeutic-M Tab) 1 tab PO 0800 [facility] Last Admin: 03/08/18 08:20 Dose: 1 tab Thiamine HCl (Vitamin B1 Tab) 100 mg PO DAILY [facility] Last Admin: 03/08/18 10:06 Dose: 100 mg Zinc Sulfate (Zinc Sulfate 220 Mg Cap) 220 mg PO DAILY [facility] Last Admin: 03/08/18 10:06 Dose: 220 mg - Labs Labs: 03/07/18 06:00 03/07/18 06:00 PT 12.5 SECONDS (9.4-12.5) 12/09/17 10:00 INR 1.09 (0.93-1.08) H 12/09/17 10:00 APTT 28.3 Seconds (25.1-36.5) 11/30/17 05:30 - Constitutional Appears: Well - Head Exam Head Exam: ATRAUMATIC, NORMAL INSPECTION, NORMOCEPHALIC - Eye Exam Eye Exam: EOMI, Normal appearance, PERRL Pupil Exam: NORMAL ACCOMODATION, PERRL - ENT Exam ENT Exam: Mucous Membranes Moist, Normal Exam - Neck Exam Neck Exam: Full ROM, Normal Inspection. absent: Lymphadenopathy - Respiratory Exam Respiratory Exam: Clear to Ausculation Bilateral, NORMAL BREATHING PATTERN - Cardiovascular Exam Cardiovascular Exam: REGULAR RHYTHM, +S1, +S2. absent: Murmur - GI/Abdominal Exam GI & Abdominal Exam: Soft, Normal Bowel Sounds. absent: Tenderness - Extremities Exam Extremities Exam: Full ROM, Normal Capillary Refill, Normal Inspection. absent : Joint Swelling, Pedal Edema - Back Exam Back Exam: NORMAL INSPECTION - Neurological Exam Neurological Exam: Alert, Awake, CN II-XII Intact, Normal Gait, Oriented x3 - Psychiatric Exam Psychiatric exam: Normal Affect, Normal Mood - Skin Skin Exam: Dry, Intact, Normal Color, Warm Assessment and Plan - Assessment and Plan (Free Text) Assessment: (1) Altered mental status Assessment & Plan: resolved- currently at baseline mentation which waxes and wanes Delirium precautions Patient mentation clinically unchanged, able to answer simple questions with simple answers, poor insight Likely secondary to depression vs. previous brain injury in form of metabolic encephalopathy vs residual stroke deficits PT reordered to evaluate for deconditioning, patient still refusing to participate Status: Resolved (2) Ischemic stroke Status: Acute (3) Coag negative Staphylococcus bacteremia Assessment & Plan: Last bld clx negative 12/04/17 with completion of 6 week course of antibiotics Monitor WBC, ESR, CRP weekly Echocardiogram unable to rule out vegetations, family is unavailable for consent for TAHIR Status: Resolved (4) Stage 1 decubitus ulcer Assessment & Plan: Patient refuses to get out of bed to chair Refusing activity with PT Skin break down noticed on lateral posterior lower back/hip Continue with Q2 turns Folic acid, Thiamine, Zinc daily Air mattress Wound care consult Off loading boots Status: Acute (5) Colonic mass Assessment & Plan: CT Abd/Pelvis showing colonic mass and hepatic lesions GI consulted and following patient Flex sig/colonoscopy refused by patient at this time Family unable to be contacted for consent Status: Chronic (6) Diabetes mellitus type 2 in nonobese Assessment & Plan: HgA1c is 7.4 Continue ISS low Metformin 500mg BID Carb consistent diet Status: Chronic (7) HTN (hypertension) Status: Acute (8) Affective disorder Assessment & Plan: Celexa 10mg PO Daily Status: Chronic (9) Prophylactic measure Assessment & Plan: No GI PPX indicated this time SCDs Dispo: Patient lacks decision making capacity and is unable to comprehend his diagnosis, medical treatment, potential benefit and risk associated with and without treatment. Guardianship paperwork being processed followed by potential placement. Court scheduled for 03/24 concerning guardianship Status: Acute <Charlotte Lim - Last Filed: 03/08/18 10:55> Objective - Vital Signs/Intake and Output Vital Signs (last 24 hours): Temp Pulse Resp BP Pulse Ox 97 F L 110 H 20 128/84 94 L 03/08/18 07:57 03/08/18 10:06 03/08/18 07:57 03/08/18 10:06 03/08/18 07:57 Intake and Output: 03/08/18 03/08/18 06:59 18:59 Intake Total 840 Balance 840 - Medications Medications: Current Medications Amlodipine Besylate (Norvasc) 10 mg PO DAILY [facility] Last Admin: 03/08/18 10:05 Dose: 10 mg Aspirin (Ecotrin) 81 mg PO DAILY [facility] Last Admin: 03/08/18 10:06 Dose: 81 mg Atorvastatin Calcium (Lipitor) 20 mg PO DIN [facility] Last Admin: 03/07/18 17:27 Dose: 20 mg Citalopram Hydrobromide (Celexa) 10 mg PO DAILY [facility] Last Admin: 03/08/18 10:06 Dose: 10 mg Enoxaparin Sodium (Lovenox) 40 mg SC DAILY [facility] PRN Reason: Protocol Last Admin: 03/08/18 10:06 Dose: 40 mg Folic Acid (Folic Acid) 1 mg PO DAILY [facility] Last Admin: 03/08/18 10:06 Dose: 1 mg Insulin Human Regular (Humulin R Low) 0 units SC [facility] PRN Reason: Protocol Last Admin: 03/08/18 08:20 Dose: 1 units Lisinopril (Zestril) 10 mg PO DAILY [facility] Last Admin: 03/08/18 10:06 Dose: 10 mg Metformin HCl (Glucophage) 500 mg PO BID [facility] Last Admin: 03/08/18 10:06 Dose: 500 mg Multivitamins/Minerals (Therapeutic-M Tab) 1 tab PO 0800 [facility] Last Admin: 03/08/18 08:20 Dose: 1 tab Thiamine HCl (Vitamin B1 Tab) 100 mg PO DAILY [facility] Last Admin: 03/08/18 10:06 Dose: 100 mg Zinc Sulfate (Zinc Sulfate 220 Mg Cap) 220 mg PO DAILY [facility] Last Admin: 03/08/18 10:06 Dose: 220 mg - Labs Labs: 03/07/18 06:00 03/07/18 06:00 PT 12.5 SECONDS (9.4-12.5) 12/09/17 10:00 INR 1.09 (0.93-1.08) H 12/09/17 10:00 APTT 28.3 Seconds (25.1-36.5) 11/30/17 05:30 Attending/Attestation - Attestation I have personally seen and examined this patient.: Yes I have fully participated in the care of the patient.: Yes I have reviewed all pertinent clinical information, including history, physical exam and plan: Yes Notes (Text): I have seen and examined the patient at bedside. Agree with the above note dictated by the resident. Patient is awake, alert and mental status is at the baseline. He denies any complaints. There were no acute events overnight. Still refusing to get out of the bed and participate in PT. Patient is awaiting guardianship paper work for placement. Encourage incentive spirometry and physical therapy. Upon discharge patient will follow up with PMD of choice.
--- NOTE | 2018-03-08 16:30 | PN ---
DATE: 03/08/2018 SUBJECTIVE: The patient is in bed, in no acute distress, nontoxic. PHYSICAL EXAMINATION: VITAL SIGNS: Temperature is 97, blood pressure is 120/80, respiratory rate 20, heart rate of 110. HEENT: Unremarkable. NECK: Supple. LUNGS: Have decreased breath sounds. HEART: Normal S1, S2. ABDOMEN: Soft, nontender. LABORATORY DATA: Reveals a white count of 8.9, hemoglobin of 11, platelets of 369. Chemistries reveal BUN of 16 and creatinine is 0.6. Review of orders reveals the patient to be off of antibiotics. ASSESSMENT AND PLAN: This is a 57-year-old male seen today earlier in [facility], bed 1, status post sepsis due to Streptococcus viridans and coag-negative staphylococcus bacteremia, right gluteal and back cellulitis, status post multifocal healthcare-associated pneumonia on top of influenza A infection and status post Sammie infection in sacral area as well as peripheral vascular disease. Currently, the patient is status post treatment of 42 days of antibiotics, now off of antibiotics, afebrile, and waiting for placement; however, the patient is at risk for developing nosocomial infections. Daniel Torres MD
[2018-03-09] MEDS: Insulin Reg-LOW-Coverage SC SCH ×4 (07:41→21:41)
[2018-03-09] MEDS: Multivitamin With Minerals Tab PO SCH (09:01)
[2018-03-09] MEDS: Enoxaparin 40 mg Syringe SC SCH (09:01)
--- NOTE | 2018-03-09 11:37 | CP.PCM.PN ---
<Ady Long - Last Filed: 03/09/18 11:34> Subjective - Date & Time of Evaluation Date of Evaluation: 03/09/18 Time of Evaluation: 11:34 - Subjective Subjective: Patient seen and examined at bedside. Doing well with no complaints at this time. Still refusing to get out of bed and participate in PT. Objective - Vital Signs/Intake and Output Vital Signs (last 24 hours): Temp Pulse Resp BP Pulse Ox 97.9 F 90 20 115/70 94 L 03/09/18 07:30 03/09/18 07:30 03/09/18 07:30 03/09/18 09:01 03/09/18 07:30 Intake and Output: 03/09/18 03/09/18 06:59 18:59 Intake Total 780 Balance 780 - Medications Medications: Current Medications Amlodipine Besylate (Norvasc) 10 mg PO DAILY [facility] Last Admin: 03/09/18 09:01 Dose: 10 mg Aspirin (Ecotrin) 81 mg PO DAILY [facility] Last Admin: 03/09/18 09:01 Dose: 81 mg Atorvastatin Calcium (Lipitor) 20 mg PO DIN [facility] Last Admin: 03/08/18 17:41 Dose: 20 mg Citalopram Hydrobromide (Celexa) 10 mg PO DAILY [facility] Last Admin: 03/09/18 09:01 Dose: 10 mg Enoxaparin Sodium (Lovenox) 40 mg SC DAILY [facility] PRN Reason: Protocol Last Admin: 03/09/18 09:01 Dose: 40 mg Folic Acid (Folic Acid) 1 mg PO DAILY [facility] Last Admin: 03/09/18 09:01 Dose: 1 mg Insulin Human Regular (Humulin R Low) [address] [facility] PRN Reason: Protocol Last Admin: 03/09/18 07:41 Dose: Not Given Lisinopril (Zestril) 10 mg PO DAILY [facility] Last Admin: 03/09/18 09:02 Dose: 10 mg Metformin HCl (Glucophage) 500 mg PO BID [facility] Last Admin: 03/09/18 09:02 Dose: 500 mg Multivitamins/Minerals (Therapeutic-M Tab) 1 tab PO 0800 [facility] Last Admin: 03/09/18 09:01 Dose: 1 tab Thiamine HCl (Vitamin B1 Tab) 100 mg PO DAILY [facility] Last Admin: 03/09/18 09:02 Dose: 100 mg Zinc Sulfate (Zinc Sulfate 220 Mg Cap) 220 mg PO DAILY [facility] Last Admin: 03/09/18 09:01 Dose: 220 mg - Labs Labs: 03/07/18 06:00 03/07/18 06:00 PT 12.5 SECONDS (9.4-12.5) 12/09/17 10:00 INR 1.09 (0.93-1.08) H 12/09/17 10:00 APTT 28.3 Seconds (25.1-36.5) 11/30/17 05:30 - Constitutional Appears: Well - Head Exam Head Exam: ATRAUMATIC, NORMAL INSPECTION, NORMOCEPHALIC - Eye Exam Eye Exam: EOMI, Normal appearance, PERRL Pupil Exam: NORMAL ACCOMODATION, PERRL - ENT Exam ENT Exam: Mucous Membranes Moist, Normal Exam - Neck Exam Neck Exam: Full ROM, Normal Inspection. absent: Lymphadenopathy - Respiratory Exam Respiratory Exam: Clear to Ausculation Bilateral, NORMAL BREATHING PATTERN - Cardiovascular Exam Cardiovascular Exam: REGULAR RHYTHM, +S1, +S2. absent: Murmur - GI/Abdominal Exam GI & Abdominal Exam: Soft, Normal Bowel Sounds. absent: Tenderness - Extremities Exam Extremities Exam: Full ROM, Normal Capillary Refill, Normal Inspection. absent : Joint Swelling, Pedal Edema - Back Exam Back Exam: NORMAL INSPECTION - Neurological Exam Neurological Exam: Alert, Awake, CN II-XII Intact, Normal Gait, Oriented x3 - Psychiatric Exam Psychiatric exam: Normal Affect, Normal Mood - Skin Skin Exam: Dry, Intact, Normal Color, Warm Assessment and Plan - Assessment and Plan (Free Text) Assessment: (1) Altered mental status Assessment & Plan: resolved- currently at baseline mentation which waxes and wanes Delirium precautions Patient mentation clinically unchanged, able to answer simple questions with simple answers, poor insight Likely secondary to depression vs. previous brain injury in form of metabolic encephalopathy vs residual stroke deficits PT reordered to evaluate for deconditioning, patient still refusing to participate Status: Resolved (2) Ischemic stroke Status: Acute (3) Coag negative Staphylococcus bacteremia Assessment & Plan: Last bld clx negative 12/04/17 with completion of 6 week course of antibiotics Monitor WBC, ESR, CRP weekly Echocardiogram unable to rule out vegetations, family is unavailable for consent for TAHIR Status: Resolved (4) Stage 1 decubitus ulcer Assessment & Plan: Patient refuses to get out of bed to chair Refusing activity with PT Skin break down noticed on lateral posterior lower back/hip Continue with Q2 turns Folic acid, Thiamine, Zinc daily Air mattress Wound care consult Off loading boots Status: Acute (5) Colonic mass Assessment & Plan: CT Abd/Pelvis showing colonic mass and hepatic lesions GI consulted and following patient Flex sig/colonoscopy refused by patient at this time Family unable to be contacted for consent Status: Chronic (6) Diabetes mellitus type 2 in nonobese Assessment & Plan: HgA1c is 7.4 Continue ISS low Metformin 500mg BID Carb consistent diet Status: Chronic (7) HTN (hypertension) Status: Acute (8) Affective disorder Assessment & Plan: Celexa 10mg PO Daily Status: Chronic (9) Prophylactic measure Assessment & Plan: No GI PPX indicated this time SCDs Dispo: Patient lacks decision making capacity and is unable to comprehend his diagnosis, medical treatment, potential benefit and risk associated with and without treatment. Guardianship paperwork being processed followed by potential placement. Court scheduled for 03/24 concerning guardianship Status: Acute <Antonio Turner - Last Filed: 03/09/18 14:02> Objective - Vital Signs/Intake and Output Vital Signs (last 24 hours): Temp Pulse Resp BP Pulse Ox 97.9 F 90 20 115/70 94 L 03/09/18 07:30 03/09/18 07:30 03/09/18 07:30 03/09/18 09:01 03/09/18 07:30 Intake and Output: 03/09/18 03/09/18 06:59 18:59 Intake Total 780 Balance 780 - Medications Medications: Current Medications Amlodipine Besylate (Norvasc) 10 mg PO DAILY [facility] Last Admin: 03/09/18 09:01 Dose: 10 mg Aspirin (Ecotrin) 81 mg PO DAILY [facility] Last Admin: 03/09/18 09:01 Dose: 81 mg Atorvastatin Calcium (Lipitor) 20 mg PO DIN [facility] Last Admin: 03/08/18 17:41 Dose: 20 mg Citalopram Hydrobromide (Celexa) 10 mg PO DAILY [facility] Last Admin: 03/09/18 09:01 Dose: 10 mg Enoxaparin Sodium (Lovenox) 40 mg SC DAILY [facility] PRN Reason: Protocol Last Admin: 03/09/18 09:01 Dose: 40 mg Folic Acid (Folic Acid) 1 mg PO DAILY [facility] Last Admin: 03/09/18 09:01 Dose: 1 mg Insulin Human Regular (Humulin R Low) 0 units SC ACHS [facility] PRN Reason: Protocol Last Admin: 03/09/18 12:46 Dose: 1 units Lisinopril (Zestril) 10 mg PO DAILY [facility] Last Admin: 03/09/18 09:02 Dose: 10 mg Metformin HCl (Glucophage) 500 mg PO BID [facility] Last Admin: 03/09/18 09:02 Dose: 500 mg Multivitamins/Minerals (Therapeutic-M Tab) 1 tab PO 0800 [facility] Last Admin: 03/09/18 09:01 Dose: 1 tab Thiamine HCl (Vitamin B1 Tab) 100 mg PO DAILY [facility] Last Admin: 03/09/18 09:02 Dose: 100 mg Zinc Sulfate (Zinc Sulfate 220 Mg Cap) 220 mg PO DAILY [facility] Last Admin: 03/09/18 09:01 Dose: 220 mg - Labs Labs: 03/07/18 06:00 03/07/18 06:00 PT 12.5 SECONDS (9.4-12.5) 12/09/17 10:00 INR 1.09 (0.93-1.08) H 12/09/17 10:00 APTT 28.3 Seconds (25.1-36.5) 11/30/17 05:30 Attending/Attestation - Attestation I have personally seen and examined this patient.: Yes I have fully participated in the care of the patient.: Yes I have reviewed all pertinent clinical information, including history, physical exam and plan: Yes Notes (Text): 03/09/18 13:59 Patient seen and examined Agree with above No acute distress. Encouraged out of bed to chair Pending guardianship and placement 03/09/18 14:01
--- NOTE | 2018-03-09 15:33 | PN ---
DATE: 03/09/2018 SUBJECTIVE: The patient is in bed, in no acute distress, nontoxic. PHYSICAL EXAMINATION: VITAL SIGNS: Temperature is 97, blood pressure is 120/80, respiratory rate 20, heart rate of 96. HEENT: Unremarkable. NECK: Supple. LUNGS: Have decreased breath sounds. HEART: Normal S1, S2. ABDOMEN: Soft. LABORATORY DATA: Reveals a white count of 8.9, hemoglobin of 11, platelets of 369. BUN of 16, creatinine of 0.6. ASSESSMENT AND PLAN: This is a 57-year-old male seen earlier this morning in [facility], bed 1 with status post sepsis due to Streptococcus viridans, coagulase-negative staphylococcus bacteremia, right gluteal and back cellulitis, status post multifocal healthcare-associated pneumonia on top of influenza A infection, status post Sammie infection and peripheral vascular disease. Currently patient is status post treatment of antibiotics 42 days, off of antibiotics, afebrile, encouraged to keep the patient off and minimize the development of a nosocomial infections. Daniel Torres MD
[2018-03-10] MEDS: Insulin Reg-LOW-Coverage SC SCH ×4 (07:21→21:21)
[2018-03-10] MEDS: Enoxaparin 40 mg Syringe SC SCH (09:43)
[2018-03-10] MEDS: Multivitamin With Minerals Tab PO SCH (09:43)
--- NOTE | 2018-03-10 13:26 | CP.PCM.PN ---
<Ady Long - Last Filed: 03/10/18 13:22> Subjective - Date & Time of Evaluation Date of Evaluation: 03/10/18 Time of Evaluation: 13:22 - Subjective Subjective: Patient seen and examined at bedside. Doing well wit hno complaints at this time. Still refusing to participate in physical therapy. Was encouraged to get out of the bed but continued to refuse. Objective - Vital Signs/Intake and Output Vital Signs (last 24 hours): Temp Pulse Resp BP Pulse Ox 96.4 F L 93 H 20 118/68 98 03/10/18 07:35 03/10/18 07:35 03/10/18 07:35 03/10/18 09:44 03/10/18 07:35 Intake and Output: 03/10/18 03/10/18 06:59 18:59 Intake Total 1080 Balance 1080 - Medications Medications: Current Medications Amlodipine Besylate (Norvasc) 10 mg PO DAILY [facility] Last Admin: 03/10/18 09:44 Dose: 10 mg Aspirin (Ecotrin) 81 mg PO DAILY [facility] Last Admin: 03/10/18 09:43 Dose: 81 mg Atorvastatin Calcium (Lipitor) 20 mg PO DIN [facility] Last Admin: 03/09/18 17:08 Dose: 20 mg Citalopram Hydrobromide (Celexa) 10 mg PO DAILY [facility] Last Admin: 03/10/18 09:43 Dose: 10 mg Enoxaparin Sodium (Lovenox) 40 mg SC DAILY [facility] PRN Reason: Protocol Last Admin: 03/10/18 09:43 Dose: 40 mg Folic Acid (Folic Acid) 1 mg PO DAILY [facility] Last Admin: 03/10/18 09:43 Dose: 1 mg Insulin Human Regular (Humulin R Low) [address] [facility] PRN Reason: Protocol Last Admin: 03/10/18 11:42 Dose: Not Given Lisinopril (Zestril) 10 mg PO DAILY [facility] Last Admin: 03/10/18 09:43 Dose: 10 mg Metformin HCl (Glucophage) 500 mg PO BID [facility] Last Admin: 03/10/18 09:43 Dose: 500 mg Multivitamins/Minerals (Therapeutic-M Tab) 1 tab PO 0800 [facility] Last Admin: 03/10/18 09:43 Dose: 1 tab Thiamine HCl (Vitamin B1 Tab) 100 mg PO DAILY [facility] Last Admin: 03/10/18 09:43 Dose: 100 mg Zinc Sulfate (Zinc Sulfate 220 Mg Cap) 220 mg PO DAILY [facility] Last Admin: 03/10/18 09:43 Dose: 220 mg - Labs Labs: 03/07/18 06:00 03/07/18 06:00 PT 12.5 SECONDS (9.4-12.5) 12/09/17 10:00 INR 1.09 (0.93-1.08) H 12/09/17 10:00 APTT 28.3 Seconds (25.1-36.5) 11/30/17 05:30 - Constitutional Appears: Well - Head Exam Head Exam: ATRAUMATIC, NORMAL INSPECTION, NORMOCEPHALIC - Eye Exam Eye Exam: EOMI, Normal appearance, PERRL Pupil Exam: NORMAL ACCOMODATION, PERRL - ENT Exam ENT Exam: Mucous Membranes Moist, Normal Exam - Neck Exam Neck Exam: Full ROM, Normal Inspection. absent: Lymphadenopathy - Respiratory Exam Respiratory Exam: Clear to Ausculation Bilateral, NORMAL BREATHING PATTERN - Cardiovascular Exam Cardiovascular Exam: REGULAR RHYTHM, +S1, +S2. absent: Murmur - GI/Abdominal Exam GI & Abdominal Exam: Soft, Normal Bowel Sounds. absent: Tenderness - Extremities Exam Extremities Exam: Full ROM, Normal Capillary Refill, Normal Inspection. absent : Joint Swelling, Pedal Edema - Back Exam Back Exam: NORMAL INSPECTION - Neurological Exam Neurological Exam: Alert, Awake, CN II-XII Intact, Normal Gait, Oriented x3 - Psychiatric Exam Psychiatric exam: Normal Affect, Normal Mood - Skin Skin Exam: Dry, Intact, Normal Color, Warm Assessment and Plan - Assessment and Plan (Free Text) Assessment: (1) Altered mental status Assessment & Plan: resolved- currently at baseline mentation which waxes and wanes Delirium precautions Patient mentation clinically unchanged, able to answer simple questions with simple answers, poor insight Likely secondary to depression vs. previous brain injury in form of metabolic encephalopathy vs residual stroke deficits PT reordered to evaluate for deconditioning, patient still refusing to participate Status: Resolved (2) Ischemic stroke Status: Acute (3) Coag negative Staphylococcus bacteremia Assessment & Plan: Last bld clx negative 12/04/17 with completion of 6 week course of antibiotics Monitor WBC, ESR, CRP weekly Echocardiogram unable to rule out vegetations, family is unavailable for consent for TAHIR Status: Resolved (4) Stage 1 decubitus ulcer Assessment & Plan: Patient refuses to get out of bed to chair Refusing activity with PT Skin break down noticed on lateral posterior lower back/hip Continue with Q2 turns Folic acid, Thiamine, Zinc daily Air mattress Wound care consult Off loading boots Status: Acute (5) Colonic mass Assessment & Plan: CT Abd/Pelvis showing colonic mass and hepatic lesions GI consulted and following patient Flex sig/colonoscopy refused by patient at this time Family unable to be contacted for consent Status: Chronic (6) Diabetes mellitus type 2 in nonobese Assessment & Plan: HgA1c is 7.4 Continue ISS low Metformin 500mg BID Carb consistent diet Status: Chronic (7) HTN (hypertension) Status: Acute (8) Affective disorder Assessment & Plan: Celexa 10mg PO Daily Status: Chronic (9) Prophylactic measure Assessment & Plan: No GI PPX indicated this time SCDs Dispo: Patient lacks decision making capacity and is unable to comprehend his diagnosis, medical treatment, potential benefit and risk associated with and without treatment. Guardianship paperwork being processed followed by potential placement. Court scheduled for 03/24 concerning guardianship Status: Acute <Charlotte Lim B - Last Filed: 03/10/18 14:28> Objective - Vital Signs/Intake and Output Vital Signs (last 24 hours): Temp Pulse Resp BP Pulse Ox 96.4 F L 93 H 20 118/68 98 03/10/18 07:35 03/10/18 07:35 03/10/18 07:35 03/10/18 09:44 03/10/18 07:35 Intake and Output: 03/10/18 03/10/18 06:59 18:59 Intake Total 1080 Balance 1080 - Medications Medications: Current Medications Amlodipine Besylate (Norvasc) 10 mg PO DAILY [facility] Last Admin: 03/10/18 09:44 Dose: 10 mg Aspirin (Ecotrin) 81 mg PO DAILY [facility] Last Admin: 03/10/18 09:43 Dose: 81 mg Atorvastatin Calcium (Lipitor) 20 mg PO DIN [facility] Last Admin: 03/09/18 17:08 Dose: 20 mg Citalopram Hydrobromide (Celexa) 10 mg PO DAILY [facility] Last Admin: 03/10/18 09:43 Dose: 10 mg Enoxaparin Sodium (Lovenox) 40 mg SC DAILY [facility] PRN Reason: Protocol Last Admin: 03/10/18 09:43 Dose: 40 mg Folic Acid (Folic Acid) 1 mg PO DAILY [facility] Last Admin: 03/10/18 09:43 Dose: 1 mg Insulin Human Regular (Humulin R Low) 0 units SC ACHS [facility] PRN Reason: Protocol Last Admin: 03/10/18 11:42 Dose: Not Given Lisinopril (Zestril) 10 mg PO DAILY [facility] Last Admin: 03/10/18 09:43 Dose: 10 mg Metformin HCl (Glucophage) 500 mg PO BID [facility] Last Admin: 03/10/18 09:43 Dose: 500 mg Multivitamins/Minerals (Therapeutic-M Tab) 1 tab PO 0800 [facility] Last Admin: 03/10/18 09:43 Dose: 1 tab Thiamine HCl (Vitamin B1 Tab) 100 mg PO DAILY [facility] Last Admin: 03/10/18 09:43 Dose: 100 mg Zinc Sulfate (Zinc Sulfate 220 Mg Cap) 220 mg PO DAILY [facility] Last Admin: 03/10/18 09:43 Dose: 220 mg - Labs Labs: 03/07/18 06:00 03/07/18 06:00 PT 12.5 SECONDS (9.4-12.5) 12/09/17 10:00 INR 1.09 (0.93-1.08) H 12/09/17 10:00 APTT 28.3 Seconds (25.1-36.5) 11/30/17 05:30 Attending/Attestation - Attestation I have personally seen and examined this patient.: Yes I have fully participated in the care of the patient.: Yes I have reviewed all pertinent clinical information, including history, physical exam and plan: Yes Notes (Text): I have seen and examined the patient at bedside. Agree with the above note dictated by the resident. Patient is awake, alert and mental status is at the baseline. He denies any complaints. Patient is awaiting guardianship paper work for placement. Encourage incentive spirometry and physical therapy. Upon discharge patient will follow up with PMD of choice.
--- NOTE | 2018-03-10 22:46 | PN ---
DATE: 03/10/2018 SUBJECTIVE: Patient is in bed, seen early this morning. No fevers, no chills. No nausea or vomiting. An uneventful day and an uneventful last night. PHYSICAL EXAMINATION: VITAL SIGNS: Temperature is 98, blood pressure is 120/70, respiratory rate of 60. HEENT: Unremarkable. NECK: Supple. LUNGS: Have decreased breath sounds. HEART: Normal S1, S2. ABDOMEN: Soft. LABORATORY EXAMINATION: Reveals a white count of 8.9, hemoglobin of 11, platelets of 369. BUN of 16, creatinine of 0.6. ASSESSMENT AND PLAN: This is a 57-year-old male, seen earlier this morning in [facility], bed 1, status post sepsis due to Streptococcus viridans and coag-negative staph bacteremia with right gluteal abscess and back cellulitis, status post multifocal healthcare-associated pneumonia on top of influenza and status post Sammie. Completed 42 days of antibiotics, currently off of antibiotics, afebrile, normal white count. Patient is at risk for developing nosocomial infections and waiting for placement. Daniel Torres MD
--- NOTE | 2018-03-11 09:47 | CP.PCM.PN ---
<Ady Long - Last Filed: 03/11/18 09:44> Subjective - Date & Time of Evaluation Date of Evaluation: 03/11/18 Time of Evaluation: 09:44 - Subjective Subjective: Patient seen and examined at bedside. Doing well with no complaints at this time. Still refusing to participate in PT. No other changes at this time. Objective - Vital Signs/Intake and Output Vital Signs (last 24 hours): Temp Pulse Resp BP Pulse Ox 98.3 F 68 20 120/81 98 03/11/18 07:44 03/11/18 07:44 03/11/18 07:44 03/11/18 07:44 03/11/18 07:44 Intake and Output: 03/11/18 03/11/18 06:59 18:59 Intake Total 120 Balance 120 - Medications Medications: Current Medications Amlodipine Besylate (Norvasc) 10 mg PO DAILY [facility] Last Admin: 03/10/18 09:44 Dose: 10 mg Aspirin (Ecotrin) 81 mg PO DAILY [facility] Last Admin: 03/10/18 09:43 Dose: 81 mg Atorvastatin Calcium (Lipitor) 20 mg PO DIN [facility] Last Admin: 03/10/18 17:01 Dose: 20 mg Citalopram Hydrobromide (Celexa) 10 mg PO DAILY [facility] Last Admin: 03/10/18 09:43 Dose: 10 mg Enoxaparin Sodium (Lovenox) 40 mg SC DAILY [facility] PRN Reason: Protocol Last Admin: 03/10/18 09:43 Dose: 40 mg Folic Acid (Folic Acid) 1 mg PO DAILY [facility] Last Admin: 03/10/18 09:43 Dose: 1 mg Insulin Human Regular (Humulin R Low) 0 units SC [facility] PRN Reason: Protocol Last Admin: 03/10/18 21:21 Dose: Not Given Lisinopril (Zestril) 10 mg PO DAILY [facility] Last Admin: 03/10/18 09:43 Dose: 10 mg Metformin HCl (Glucophage) 500 mg PO BID [facility] Last Admin: 03/10/18 17:01 Dose: 500 mg Multivitamins/Minerals (Therapeutic-M Tab) 1 tab PO 0800 [facility] Last Admin: 03/10/18 09:43 Dose: 1 tab Thiamine HCl (Vitamin B1 Tab) 100 mg PO DAILY [facility] Last Admin: 03/10/18 09:43 Dose: 100 mg Zinc Sulfate (Zinc Sulfate 220 Mg Cap) 220 mg PO DAILY [facility] Last Admin: 03/10/18 09:43 Dose: 220 mg - Labs Labs: 03/07/18 06:00 03/07/18 06:00 PT 12.5 SECONDS (9.4-12.5) 12/09/17 10:00 INR 1.09 (0.93-1.08) H 12/09/17 10:00 APTT 28.3 Seconds (25.1-36.5) 11/30/17 05:30 - Constitutional Appears: Well - Head Exam Head Exam: ATRAUMATIC, NORMAL INSPECTION, NORMOCEPHALIC - Eye Exam Eye Exam: EOMI, Normal appearance, PERRL Pupil Exam: NORMAL ACCOMODATION, PERRL - ENT Exam ENT Exam: Mucous Membranes Moist, Normal Exam - Neck Exam Neck Exam: Full ROM, Normal Inspection. absent: Lymphadenopathy - Respiratory Exam Respiratory Exam: Clear to Ausculation Bilateral, NORMAL BREATHING PATTERN - Cardiovascular Exam Cardiovascular Exam: REGULAR RHYTHM, +S1, +S2. absent: Murmur - GI/Abdominal Exam GI & Abdominal Exam: Soft, Normal Bowel Sounds. absent: Tenderness - Extremities Exam Extremities Exam: Full ROM, Normal Capillary Refill, Normal Inspection. absent : Joint Swelling, Pedal Edema - Back Exam Back Exam: NORMAL INSPECTION - Neurological Exam Neurological Exam: Alert, Awake, CN II-XII Intact, Normal Gait, Oriented x3 - Psychiatric Exam Psychiatric exam: Normal Affect, Normal Mood - Skin Skin Exam: Dry, Intact, Normal Color, Warm Assessment and Plan - Assessment and Plan (Free Text) Assessment: (1) Altered mental status Assessment & Plan: resolved- currently at baseline mentation which waxes and wanes Delirium precautions Patient mentation clinically unchanged, able to answer simple questions with simple answers, poor insight Likely secondary to depression vs. previous brain injury in form of metabolic encephalopathy vs residual stroke deficits PT reordered to evaluate for deconditioning, patient still refusing to participate Status: Resolved (2) Ischemic stroke Status: Acute (3) Coag negative Staphylococcus bacteremia Assessment & Plan: Last bld clx negative 12/04/17 with completion of 6 week course of antibiotics Monitor WBC, ESR, CRP weekly Echocardiogram unable to rule out vegetations, family is unavailable for consent for TAHIR Status: Resolved (4) Stage 1 decubitus ulcer Assessment & Plan: Patient refuses to get out of bed to chair Refusing activity with PT Skin break down noticed on lateral posterior lower back/hip Continue with Q2 turns Folic acid, Thiamine, Zinc daily Air mattress Wound care consult Off loading boots Status: Acute (5) Colonic mass Assessment & Plan: CT Abd/Pelvis showing colonic mass and hepatic lesions GI consulted and following patient Flex sig/colonoscopy refused by patient at this time Family unable to be contacted for consent Status: Chronic (6) Diabetes mellitus type 2 in nonobese Assessment & Plan: HgA1c is 7.4 Continue ISS low Metformin 500mg BID Carb consistent diet Status: Chronic (7) HTN (hypertension) Status: Acute (8) Affective disorder Assessment & Plan: Celexa 10mg PO Daily Status: Chronic (9) Prophylactic measure Assessment & Plan: No GI PPX indicated this time SCDs Dispo: Patient lacks decision making capacity and is unable to comprehend his diagnosis, medical treatment, potential benefit and risk associated with and without treatment. Guardianship paperwork being processed followed by potential placement. Court scheduled for 03/24 concerning guardianship Status: Acute <Antonio Turner - Last Filed: 03/11/18 10:27> Objective - Vital Signs/Intake and Output Vital Signs (last 24 hours): Temp Pulse Resp BP Pulse Ox 98.3 F 68 20 120/81 98 03/11/18 07:44 03/11/18 10:09 03/11/18 07:44 03/11/18 10:09 03/11/18 07:44 Intake and Output: 03/11/18 03/11/18 06:59 18:59 Intake Total 120 Balance 120 - Medications Medications: Current Medications Amlodipine Besylate (Norvasc) 10 mg PO DAILY [facility] Last Admin: 03/11/18 10:08 Dose: 10 mg Aspirin (Ecotrin) 81 mg PO DAILY [facility] Last Admin: 03/11/18 10:05 Dose: 81 mg Atorvastatin Calcium (Lipitor) 20 mg PO DIN [facility] Last Admin: 03/10/18 17:01 Dose: 20 mg Citalopram Hydrobromide (Celexa) 10 mg PO DAILY [facility] Last Admin: 03/11/18 10:05 Dose: 10 mg Enoxaparin Sodium (Lovenox) 40 mg SC DAILY [facility] PRN Reason: Protocol Last Admin: 03/11/18 10:06 Dose: 40 mg Folic Acid (Folic Acid) 1 mg PO DAILY [facility] Last Admin: 03/11/18 10:06 Dose: 1 mg Insulin Human Regular (Humulin R Low) 0 units SC [facility] PRN Reason: Protocol Last Admin: 03/11/18 10:06 Dose: Not Given Lisinopril (Zestril) 10 mg PO DAILY [facility] Last Admin: 03/11/18 10:09 Dose: 10 mg Metformin HCl (Glucophage) 500 mg PO BID [facility] Last Admin: 03/11/18 10:06 Dose: 500 mg Multivitamins/Minerals (Therapeutic-M Tab) 1 tab PO 0800 [facility] Last Admin: 03/11/18 10:09 Dose: 1 tab Thiamine HCl (Vitamin B1 Tab) 100 mg PO DAILY [facility] Last Admin: 03/11/18 10:09 Dose: 100 mg Zinc Sulfate (Zinc Sulfate 220 Mg Cap) 220 mg PO DAILY [facility] Last Admin: 03/11/18 10:10 Dose: 220 mg - Labs Labs: 03/07/18 06:00 03/07/18 06:00 PT 12.5 SECONDS (9.4-12.5) 12/09/17 10:00 INR 1.09 (0.93-1.08) H 12/09/17 10:00 APTT 28.3 Seconds (25.1-36.5) 11/30/17 05:30 Attending/Attestation - Attestation I have personally seen and examined this patient.: Yes I have fully participated in the care of the patient.: Yes I have reviewed all pertinent clinical information, including history, physical exam and plan: Yes Notes (Text): Agree with above No acute events overnight Pending guardianship paperwork and placement
[2018-03-11] MEDS: Enoxaparin 40 mg Syringe SC SCH (10:06)
[2018-03-11] MEDS: Insulin Reg-LOW-Coverage SC SCH ×2 (10:06→17:12)
[2018-03-11] MEDS: Multivitamin With Minerals Tab PO SCH (10:09)
--- NOTE | 2018-03-11 14:57 | CP.PCM.PN ---
Subjective - Date & Time of Evaluation Date of Evaluation: 03/11/18 Time of Evaluation: 10:15 - Subjective Subjective: Comfortable in bed, no fevers, not in distress. Objective - Vital Signs/Intake and Output Vital Signs (last 24 hours): Temp Pulse Resp BP Pulse Ox 98.3 F 68 20 120/81 98 03/11/18 07:44 03/11/18 07:44 03/11/18 07:44 03/11/18 07:44 03/11/18 07:44 Intake and Output: 03/11/18 03/11/18 06:59 18:59 Intake Total 120 Balance 120 - Medications Medications: Current Medications Amlodipine Besylate (Norvasc) 10 mg PO DAILY [facility] Last Admin: 03/10/18 09:44 Dose: 10 mg Aspirin (Ecotrin) 81 mg PO DAILY [facility] Last Admin: 03/10/18 09:43 Dose: 81 mg Atorvastatin Calcium (Lipitor) 20 mg PO DIN [facility] Last Admin: 03/10/18 17:01 Dose: 20 mg Citalopram Hydrobromide (Celexa) 10 mg PO DAILY [facility] Last Admin: 03/10/18 09:43 Dose: 10 mg Enoxaparin Sodium (Lovenox) 40 mg SC DAILY [facility] PRN Reason: Protocol Last Admin: 03/10/18 09:43 Dose: 40 mg Folic Acid (Folic Acid) 1 mg PO DAILY [facility] Last Admin: 03/10/18 09:43 Dose: 1 mg Insulin Human Regular (Humulin R Low) 0 units SC ACHS [facility] PRN Reason: Protocol Last Admin: 03/10/18 21:21 Dose: Not Given Lisinopril (Zestril) 10 mg PO DAILY [facility] Last Admin: 03/10/18 09:43 Dose: 10 mg Metformin HCl (Glucophage) 500 mg PO BID [facility] Last Admin: 03/10/18 17:01 Dose: 500 mg Multivitamins/Minerals (Therapeutic-M Tab) 1 tab PO 0800 [facility] Last Admin: 03/10/18 09:43 Dose: 1 tab Thiamine HCl (Vitamin B1 Tab) 100 mg PO DAILY [facility] Last Admin: 03/10/18 09:43 Dose: 100 mg Zinc Sulfate (Zinc Sulfate 220 Mg Cap) 220 mg PO DAILY [facility] Last Admin: 03/10/18 09:43 Dose: 220 mg - Labs Labs: 03/07/18 06:00 03/07/18 06:00 PT 12.5 SECONDS (9.4-12.5) 12/09/17 10:00 INR 1.09 (0.93-1.08) H 12/09/17 10:00 APTT 28.3 Seconds (25.1-36.5) 11/30/17 05:30 - Constitutional Appears: Chronically Ill - Head Exam Head Exam: NORMAL INSPECTION - ENT Exam ENT Exam: Mucous Membranes Moist - Neck Exam Neck Exam: absent: Lymphadenopathy, Meningismus - Respiratory Exam Respiratory Exam: Decreased Breath Sounds - Cardiovascular Exam Cardiovascular Exam: +S1, +S2 - GI/Abdominal Exam GI & Abdominal Exam: Soft. absent: Tenderness Assessment and Plan - Assessment and Plan (Free Text) Plan: Assessment S/P sepsis due to strep viridans and CoNS bacteremia from right gluteal and back cellulitis S/P multifocal HCAP on top of Influenza A infection S/P Sammie infection of sacral area as well peripheral vascular disease Plan patient had completed 42 days of antibiotics on this admission - continue to monitor clinically off antibiotics since he is at risk for healthcare- associated infections patient waiting for guardianship
[2018-03-12] MEDS: Insulin Reg-LOW-Coverage SC SCH ×5 (07:01→21:22)
--- NOTE | 2018-03-12 08:59 | PN ---
DATE: 03/12/2018 SUBJECTIVE: The patient is in bed, in no acute distress. PHYSICAL EXAMINATION: VITAL SIGNS: Temperature is 98, blood pressure is 111/70, respiratory rate of 18. HEENT: Examination of HEENT is unremarkable. NECK: Supple. LUNGS: Have decreased breath sounds. HEART: Normal S1, S2. ABDOMEN: Soft. LABORATORY DATA: Reveals a white count of 8.9. Chemistries are noted. Microbiology is noted. ASSESSMENT AND PLAN: This is a 57-year-old male with sepsis due to Streptococcus viridans, coag-negative bacteremia, right gluteal and back cellulitis, multifocal healthcare-associated pneumonia on top of influenza A Sammie infection, had completed 42 days of antibiotics. Currently off of antibiotics, afebrile. The patient is at risk for developing nosocomial infections. We will follow with you. Daniel Torres MD
[2018-03-12] MEDS: Enoxaparin 40 mg Syringe SC SCH (09:48)
[2018-03-12] MEDS: Multivitamin With Minerals Tab PO SCH (09:49)
--- NOTE | 2018-03-12 13:47 | CP.PCM.PN ---
<Ady Long - Last Filed: 03/12/18 18:03> Subjective - Date & Time of Evaluation Date of Evaluation: 03/12/18 Time of Evaluation: 13:47 - Subjective Subjective: patient seen and examined at bedside. Doing well with no complaints at this time. Refuses to participate in physical therapy. tolerating diet. No complaints at this time. Objective - Vital Signs/Intake and Output Vital Signs (last 24 hours): Temp Pulse Resp BP Pulse Ox 98.5 F 88 20 132/85 99 03/12/18 06:00 03/12/18 09:50 03/12/18 06:00 03/12/18 09:50 03/12/18 06:00 Intake and Output: 03/12/18 03/12/18 06:59 18:59 Intake Total 120 Balance 120 - Medications Medications: Current Medications Amlodipine Besylate (Norvasc) 10 mg PO DAILY [facility] Last Admin: 03/12/18 09:48 Dose: 10 mg Aspirin (Ecotrin) 81 mg PO DAILY [facility] Last Admin: 03/12/18 09:46 Dose: 81 mg Atorvastatin Calcium (Lipitor) 20 mg PO DIN [facility] Last Admin: 03/11/18 17:12 Dose: 20 mg Citalopram Hydrobromide (Celexa) 10 mg PO DAILY [facility] Last Admin: 03/12/18 09:46 Dose: 10 mg Enoxaparin Sodium (Lovenox) 40 mg SC DAILY [facility] PRN Reason: Protocol Last Admin: 03/12/18 09:48 Dose: 40 mg Folic Acid (Folic Acid) 1 mg PO DAILY [facility] Last Admin: 03/12/18 09:46 Dose: 1 mg Insulin Human Regular (Humulin R Low) 0 units SC [facility] PRN Reason: Protocol Last Admin: 03/12/18 09:46 Dose: Not Given Lisinopril (Zestril) 10 mg PO DAILY [facility] Last Admin: 03/12/18 09:50 Dose: 10 mg Metformin HCl (Glucophage) 500 mg PO BID [facility] Last Admin: 03/12/18 09:46 Dose: 500 mg Multivitamins/Minerals (Therapeutic-M Tab) 1 tab PO 0800 [facility] Last Admin: 03/12/18 09:49 Dose: 1 tab Thiamine HCl (Vitamin B1 Tab) 100 mg PO DAILY [facility] Last Admin: 03/12/18 09:50 Dose: 100 mg Zinc Sulfate (Zinc Sulfate 220 Mg Cap) 220 mg PO DAILY [facility] Last Admin: 03/12/18 09:50 Dose: 220 mg - Labs Labs: 03/07/18 06:00 03/07/18 06:00 PT 12.5 SECONDS (9.4-12.5) 12/09/17 10:00 INR 1.09 (0.93-1.08) H 12/09/17 10:00 APTT 28.3 Seconds (25.1-36.5) 11/30/17 05:30 - Constitutional Appears: Well - Head Exam Head Exam: ATRAUMATIC, NORMAL INSPECTION, NORMOCEPHALIC - Eye Exam Eye Exam: EOMI, Normal appearance, PERRL Pupil Exam: NORMAL ACCOMODATION, PERRL - ENT Exam ENT Exam: Mucous Membranes Moist, Normal Exam - Neck Exam Neck Exam: Full ROM, Normal Inspection. absent: Lymphadenopathy - Respiratory Exam Respiratory Exam: Clear to Ausculation Bilateral, NORMAL BREATHING PATTERN - Cardiovascular Exam Cardiovascular Exam: REGULAR RHYTHM, +S1, +S2. absent: Murmur - GI/Abdominal Exam GI & Abdominal Exam: Soft, Normal Bowel Sounds. absent: Distended, Tenderness - Extremities Exam Extremities Exam: Full ROM, Normal Capillary Refill, Normal Inspection. absent : Joint Swelling, Pedal Edema - Back Exam Back Exam: NORMAL INSPECTION - Neurological Exam Neurological Exam: Alert, Awake, CN II-XII Intact, Normal Gait, Oriented x3 - Psychiatric Exam Psychiatric exam: Normal Affect, Normal Mood - Skin Skin Exam: Dry, Intact, Normal Color, Warm Assessment and Plan - Assessment and Plan (Free Text) Assessment: (1) Altered mental status Assessment & Plan: resolved- currently at baseline mentation which waxes and wanes Delirium precautions Patient mentation clinically unchanged, able to answer simple questions with simple answers, poor insight Likely secondary to depression vs. previous brain injury in form of metabolic encephalopathy vs residual stroke deficits PT reordered to evaluate for deconditioning, patient still refusing to participate Status: Resolved (2) Ischemic stroke Status: Acute (3) Coag negative Staphylococcus bacteremia Assessment & Plan: Last bld clx negative 12/04/17 with completion of 6 week course of antibiotics Monitor WBC, ESR, CRP weekly Echocardiogram unable to rule out vegetations, family is unavailable for consent for TAHIR Status: Resolved (4) Stage 1 decubitus ulcer Assessment & Plan: Patient refuses to get out of bed to chair Refusing activity with PT Skin break down noticed on lateral posterior lower back/hip Continue with Q2 turns Folic acid, Thiamine, Zinc daily Air mattress Wound care consult Off loading boots Status: Acute (5) Colonic mass Assessment & Plan: CT Abd/Pelvis showing colonic mass and hepatic lesions GI consulted and following patient Flex sig/colonoscopy refused by patient at this time Family unable to be contacted for consent Status: Chronic (6) Diabetes mellitus type 2 in nonobese Assessment & Plan: HgA1c is 7.4 Continue ISS low Metformin 500mg BID Carb consistent diet Status: Chronic (7) HTN (hypertension) Status: Acute (8) Affective disorder Assessment & Plan: Celexa 10mg PO Daily Status: Chronic (9) Prophylactic measure Assessment & Plan: No GI PPX indicated this time SCDs Dispo: Patient lacks decision making capacity and is unable to comprehend his diagnosis, medical treatment, potential benefit and risk associated with and without treatment. Guardianship paperwork being processed followed by potential placement. Court scheduled for 03/24 concerning guardianship Status: Acute <Deanna Schumacher - Last Filed: 03/12/18 18:23> Objective - Vital Signs/Intake and Output Vital Signs (last 24 hours): Temp Pulse Resp BP Pulse Ox 98.8 F 88 19 100/61 98 03/12/18 16:29 03/12/18 16:29 03/12/18 16:29 03/12/18 16:29 03/12/18 16:29 Intake and Output: 03/12/18 03/12/18 06:59 18:59 Intake Total 120 Balance 120 - Medications Medications: Current Medications Amlodipine Besylate (Norvasc) 10 mg PO DAILY [facility] Last Admin: 03/12/18 09:48 Dose: 10 mg Aspirin (Ecotrin) 81 mg PO DAILY [facility] Last Admin: 03/12/18 09:46 Dose: 81 mg Atorvastatin Calcium (Lipitor) 20 mg PO DIN [facility] Last Admin: 03/12/18 17:17 Dose: 20 mg Citalopram Hydrobromide (Celexa) 10 mg PO DAILY [facility] Last Admin: 03/12/18 09:46 Dose: 10 mg Enoxaparin Sodium (Lovenox) 40 mg SC DAILY [facility] PRN Reason: Protocol Last Admin: 03/12/18 09:48 Dose: 40 mg Folic Acid (Folic Acid) 1 mg PO DAILY [facility] Last Admin: 03/12/18 09:46 Dose: 1 mg Insulin Human Regular (Humulin R Low) 0 units SC ACHS [facility] PRN Reason: Protocol Last Admin: 03/12/18 17:17 Dose: Not Given Lisinopril (Zestril) 10 mg PO DAILY [facility] Last Admin: 03/12/18 09:50 Dose: 10 mg Metformin HCl (Glucophage) 500 mg PO BID [facility] Last Admin: 03/12/18 17:16 Dose: 500 mg Multivitamins/Minerals (Therapeutic-M Tab) 1 tab PO 0800 [facility] Last Admin: 03/12/18 09:49 Dose: 1 tab Thiamine HCl (Vitamin B1 Tab) 100 mg PO DAILY [facility] Last Admin: 03/12/18 09:50 Dose: 100 mg Zinc Sulfate (Zinc Sulfate 220 Mg Cap) 220 mg PO DAILY [facility] Last Admin: 03/12/18 09:50 Dose: 220 mg - Labs Labs: 03/07/18 06:00 03/07/18 06:00 PT 12.5 SECONDS (9.4-12.5) 12/09/17 10:00 INR 1.09 (0.93-1.08) H 12/09/17 10:00 APTT 28.3 Seconds (25.1-36.5) 11/30/17 05:30 Attending/Attestation - Attestation I have personally seen and examined this patient.: Yes I have fully participated in the care of the patient.: Yes I have reviewed all pertinent clinical information, including history, physical exam and plan: Yes Notes (Text): 03/12/18 18:23 Medical record note made by the resident after discussion with my direction and input after the patient was personally seen and examined by me. I have reviewed the chart and agree that the record accurately reflects by personal performance of the history, physical exam, data review, and medical decision-making, in the course for the patient. I have also personally directed the plan of care.
[2018-03-13] MEDS: Insulin Reg-LOW-Coverage SC SCH ×4 (07:52→22:44)
[2018-03-13] MEDS: Multivitamin With Minerals Tab PO SCH (07:52)
[2018-03-13] MEDS: Enoxaparin 40 mg Syringe SC SCH (09:44)
--- NOTE | 2018-03-13 12:44 | CP.PCM.PN ---
<Ady Long - Last Filed: 03/13/18 12:42> Subjective - Date & Time of Evaluation Date of Evaluation: 03/13/18 Time of Evaluation: 12:42 - Subjective Subjective: Patient seen and examined at bedside. No complaints at this time. Tried to encourage to get out of bed and sit in chair or walk to bathroom but he refused. No other updates at this time. Objective - Vital Signs/Intake and Output Vital Signs (last 24 hours): Temp Pulse Resp BP Pulse Ox 98.0 F 75 20 126/76 97 03/13/18 08:02 03/13/18 09:45 03/13/18 08:02 03/13/18 09:45 03/13/18 08:02 Intake and Output: 03/13/18 03/13/18 06:59 18:59 Intake Total 1020 480 Balance 1020 480 - Medications Medications: Current Medications Amlodipine Besylate (Norvasc) 10 mg PO DAILY [facility] Last Admin: 03/13/18 09:44 Dose: 10 mg Aspirin (Ecotrin) 81 mg PO DAILY [facility] Last Admin: 03/13/18 09:44 Dose: 81 mg Atorvastatin Calcium (Lipitor) 20 mg PO DIN [facility] Last Admin: 03/12/18 17:17 Dose: 20 mg Citalopram Hydrobromide (Celexa) 10 mg PO DAILY [facility] Last Admin: 03/13/18 09:44 Dose: 10 mg Enoxaparin Sodium (Lovenox) 40 mg SC DAILY [facility] PRN Reason: Protocol Last Admin: 03/13/18 09:44 Dose: 40 mg Folic Acid (Folic Acid) 1 mg PO DAILY [facility] Last Admin: 03/13/18 09:44 Dose: 1 mg Insulin Human Regular (Humulin R Low) 0 units SC [facility] PRN Reason: Protocol Last Admin: 03/13/18 12:36 Dose: Not Given Lisinopril (Zestril) 10 mg PO DAILY [facility] Last Admin: 03/13/18 09:45 Dose: 10 mg Metformin HCl (Glucophage) 500 mg PO BID [facility] Last Admin: 03/13/18 09:44 Dose: 500 mg Multivitamins/Minerals (Therapeutic-M Tab) 1 tab PO 0800 [facility] Last Admin: 03/13/18 07:52 Dose: 1 tab Thiamine HCl (Vitamin B1 Tab) 100 mg PO DAILY [facility] Last Admin: 03/13/18 09:44 Dose: 100 mg Zinc Sulfate (Zinc Sulfate 220 Mg Cap) 220 mg PO DAILY [facility] Last Admin: 03/13/18 09:44 Dose: 220 mg - Labs Labs: 03/07/18 06:00 03/07/18 06:00 PT 12.5 SECONDS (9.4-12.5) 12/09/17 10:00 INR 1.09 (0.93-1.08) H 12/09/17 10:00 APTT 28.3 Seconds (25.1-36.5) 11/30/17 05:30 - Constitutional Appears: Well - Head Exam Head Exam: ATRAUMATIC, NORMAL INSPECTION, NORMOCEPHALIC - Eye Exam Eye Exam: EOMI, Normal appearance, PERRL Pupil Exam: NORMAL ACCOMODATION, PERRL - ENT Exam ENT Exam: Mucous Membranes Moist, Normal Exam - Neck Exam Neck Exam: Full ROM, Normal Inspection. absent: Lymphadenopathy - Respiratory Exam Respiratory Exam: Clear to Ausculation Bilateral, NORMAL BREATHING PATTERN - Cardiovascular Exam Cardiovascular Exam: REGULAR RHYTHM, +S1, +S2. absent: Murmur - GI/Abdominal Exam GI & Abdominal Exam: Soft, Normal Bowel Sounds. absent: Tenderness - Extremities Exam Extremities Exam: Full ROM, Normal Capillary Refill, Normal Inspection. absent : Joint Swelling, Pedal Edema - Back Exam Back Exam: NORMAL INSPECTION - Neurological Exam Neurological Exam: Alert, Awake, CN II-XII Intact, Normal Gait, Oriented x3 - Psychiatric Exam Psychiatric exam: Normal Affect, Normal Mood - Skin Skin Exam: Dry, Intact, Normal Color, Warm Assessment and Plan - Assessment and Plan (Free Text) Assessment: (1) Altered mental status Assessment & Plan: resolved- currently at baseline mentation which waxes and wanes Delirium precautions Patient mentation clinically unchanged, able to answer simple questions with simple answers, poor insight Likely secondary to depression vs. previous brain injury in form of metabolic encephalopathy vs residual stroke deficits PT reordered to evaluate for deconditioning, patient still refusing to participate Status: Resolved (2) Ischemic stroke Status: Acute (3) Coag negative Staphylococcus bacteremia Assessment & Plan: Last bld clx negative 12/04/17 with completion of 6 week course of antibiotics Monitor WBC, ESR, CRP weekly Echocardiogram unable to rule out vegetations, family is unavailable for consent for TAHIR Status: Resolved (4) Stage 1 decubitus ulcer Assessment & Plan: Patient refuses to get out of bed to chair Refusing activity with PT Skin break down noticed on lateral posterior lower back/hip Continue with Q2 turns Folic acid, Thiamine, Zinc daily Air mattress Wound care consult Off loading boots Status: Acute (5) Colonic mass Assessment & Plan: CT Abd/Pelvis showing colonic mass and hepatic lesions GI consulted and following patient Flex sig/colonoscopy refused by patient at this time Family unable to be contacted for consent Status: Chronic (6) Diabetes mellitus type 2 in nonobese Assessment & Plan: HgA1c is 7.4 Continue ISS low Metformin 500mg BID Carb consistent diet Status: Chronic (7) HTN (hypertension) Status: Acute (8) Affective disorder Assessment & Plan: Celexa 10mg PO Daily Status: Chronic (9) Prophylactic measure Assessment & Plan: No GI PPX indicated this time SCDs Dispo: Patient lacks decision making capacity and is unable to comprehend his diagnosis, medical treatment, potential benefit and risk associated with and without treatment. Guardianship paperwork being processed followed by potential placement. Court scheduled for 03/24 concerning guardianship Status: Acute <Deanna Schumacher - Last Filed: 03/13/18 13:57> Objective - Vital Signs/Intake and Output Vital Signs (last 24 hours): Temp Pulse Resp BP Pulse Ox 98.0 F 75 20 126/76 97 03/13/18 08:02 03/13/18 09:45 03/13/18 08:02 03/13/18 09:45 03/13/18 08:02 Intake and Output: 03/13/18 03/13/18 06:59 18:59 Intake Total 1020 480 Balance 1020 480 - Medications Medications: Current Medications Amlodipine Besylate (Norvasc) 10 mg PO DAILY [facility] Last Admin: 03/13/18 09:44 Dose: 10 mg Aspirin (Ecotrin) 81 mg PO DAILY [facility] Last Admin: 03/13/18 09:44 Dose: 81 mg Atorvastatin Calcium (Lipitor) 20 mg PO DIN [facility] Last Admin: 03/12/18 17:17 Dose: 20 mg Citalopram Hydrobromide (Celexa) 10 mg PO DAILY [facility] Last Admin: 03/13/18 09:44 Dose: 10 mg Enoxaparin Sodium (Lovenox) 40 mg SC DAILY [facility] PRN Reason: Protocol Last Admin: 03/13/18 09:44 Dose: 40 mg Folic Acid (Folic Acid) 1 mg PO DAILY [facility] Last Admin: 03/13/18 09:44 Dose: 1 mg Insulin Human Regular (Humulin R Low) 0 units SC [facility] PRN Reason: Protocol Last Admin: 03/13/18 12:36 Dose: Not Given Lisinopril (Zestril) 10 mg PO DAILY [facility] Last Admin: 03/13/18 09:45 Dose: 10 mg Metformin HCl (Glucophage) 500 mg PO BID [facility] Last Admin: 03/13/18 09:44 Dose: 500 mg Multivitamins/Minerals (Therapeutic-M Tab) 1 tab PO 0800 [facility] Last Admin: 03/13/18 07:52 Dose: 1 tab Thiamine HCl (Vitamin B1 Tab) 100 mg PO DAILY [facility] Last Admin: 03/13/18 09:44 Dose: 100 mg Zinc Sulfate (Zinc Sulfate 220 Mg Cap) 220 mg PO DAILY [facility] Last Admin: 03/13/18 09:44 Dose: 220 mg - Labs Labs: 03/07/18 06:00 03/07/18 06:00 PT 12.5 SECONDS (9.4-12.5) 12/09/17 10:00 INR 1.09 (0.93-1.08) H 12/09/17 10:00 APTT 28.3 Seconds (25.1-36.5) 11/30/17 05:30 Attending/Attestation - Attestation I have personally seen and examined this patient.: Yes I have fully participated in the care of the patient.: Yes I have reviewed all pertinent clinical information, including history, physical exam and plan: Yes Notes (Text): 03/13/18 13:56 Medical record note made by the resident after discussion with my direction and input after the patient was personally seen and examined by me. I have reviewed the chart and agree that the record accurately reflects by personal performance of the history, physical exam, data review, and medical decision-making, in the course for the patient. I have also personally directed the plan of care. Patient is stable at base line,.There was no overnight issue. Mental status is at base line.he is awaiting for guardianship paper work for placement.He was encouraged to ambulate and also need frequent change of position to avoid decubitus ulcer. Prognosis is guarded.
--- NOTE | 2018-03-13 16:08 | PN ---
DATE: 03/13/2018 SUBJECTIVE: The patient is seen earlier today. No acute distress, nontoxic. Uneventful night as per nurse last night. OBJECTIVE: VITAL SIGNS: Temperature is 98, blood pressure 120/70, respiratory rate 20, heart rate of 89. HEENT: Examination is unremarkable. NECK: Supple. LUNGS: Have decreased breath sounds. HEART: Normal S1, S2. ABDOMEN: Soft. DATA: Laboratory examination reveals a white count of 8.9, hemoglobin 11, platelets of 369. ASSESSMENT AND PLAN: This is a 57-year-old male who was seen earlier today, essentially awaiting for placement. He is at risk for developing nosocomial infection, initially had strep viridans and coag-negative bacteremia, right gluteal and back cellulitis, multifocal healthcare-associated pneumonia on top of influenza A; also, had Sammie infection and completed the antibiotic therapy, currently now off of antibiotics and in risk of developing nosocomial infection. Daniel Torres MD
[2018-03-14 06:40] LABS: HEMOGLOBIN 11.3 g/dL (14.0-18.0); MEAN CELL VOLUME 84.4 fl (80.0-105.0); MEAN CORPUSCULAR HEMOGLOBIN 27.1 pg (25.0-35.0); MEAN CORPUSCULAR HGB CONC 32.1 g/dl (31.0-37.0); MEAN PLATELET VOLUME 9.3 fl (7.0-11.0); RBC 4.17 10^6/uL (3.5-6.1); RED CELL DISTRIBUTION WIDTH 13.6 % (11.5-14.5); WHITE BLOOD COUNT 8.9 10^3/ul (4.5-11.0)
[2018-03-14] MEDS: Insulin Reg-LOW-Coverage SC SCH ×4 (08:00→21:43)
[2018-03-14] MEDS: Multivitamin With Minerals Tab PO SCH (09:08)
--- NOTE | 2018-03-14 09:44 | PN ---
DATE: 03/14/2018 SUBJECTIVE: The patient is in bed, in no acute distress, nontoxic. PHYSICAL EXAMINATION: VITAL SIGNS: Temperature is 97, pulse of 93, blood pressure is 120/80, respiratory rate of 20. HEENT: Examination of HEENT is unremarkable. NECK: Supple. LUNGS: Have decreased breath sounds. HEART: Normal S1, S2. ABDOMEN: Soft, nontender. LABORATORY DATA: Laboratory examination reveals a white count of 8.9, hemoglobin of 11, platelets of. Influenza is positive. ASSESSMENT AND PLAN: A 57-year-old male with initially had coag-negative and Streptococcus viridans bacteremia with a right gluteal and back cellulitis, multifocal healthcare-associated pneumonia on top of influenza A and Sammie infection, has completed the antibiotics. Currently off of antibiotics, afebrile. Awaiting for placement; however, the patient is at risk for developing nosocomial infections. Daniel Torres MD
[2018-03-14] MEDS: Enoxaparin 40 mg Syringe SC SCH (10:09)
--- NOTE | 2018-03-14 17:08 | CP.PCM.PN ---
<EliasColton - Last Filed: 03/14/18 17:04> Subjective - Date & Time of Evaluation Date of Evaluation: 03/14/18 Time of Evaluation: 10:00 - Subjective Subjective: Medicine progress note: Dr. Schumacher Patient seen and examined at bedside. No acute events overnight. Patient does not want to get out of bed to chair. Objective - Vital Signs/Intake and Output Vital Signs (last 24 hours): Temp Pulse Resp BP Pulse Ox 98.0 F 90 90 H 127/68 20 L 03/14/18 16:26 03/14/18 16:26 03/14/18 16:26 03/14/18 16:26 03/14/18 16:26 Intake and Output: 03/14/18 03/14/18 06:59 18:59 Intake Total 780 925 Balance 780 925 - Medications Medications: Current Medications Amlodipine Besylate (Norvasc) 10 mg PO DAILY [facility] Last Admin: 03/14/18 10:09 Dose: 10 mg Aspirin (Ecotrin) 81 mg PO DAILY [facility] Last Admin: 03/14/18 10:08 Dose: 81 mg Atorvastatin Calcium (Lipitor) 20 mg PO DIN [facility] Last Admin: 03/13/18 17:23 Dose: 20 mg Citalopram Hydrobromide (Celexa) 10 mg PO DAILY [facility] Last Admin: 03/14/18 10:08 Dose: 10 mg Enoxaparin Sodium (Lovenox) 40 mg SC DAILY [facility] PRN Reason: Protocol Last Admin: 03/14/18 10:09 Dose: 40 mg Folic Acid (Folic Acid) 1 mg PO DAILY [facility] Last Admin: 03/14/18 10:08 Dose: 1 mg Insulin Human Regular (Humulin R Low) 0 units SC [facility] PRN Reason: Protocol Last Admin: 03/14/18 16:35 Dose: Not Given Lisinopril (Zestril) 10 mg PO DAILY [facility] Last Admin: 03/14/18 10:08 Dose: 10 mg Metformin HCl (Glucophage) 500 mg PO BID [facility] Last Admin: 03/14/18 10:09 Dose: 500 mg Multivitamins/Minerals (Therapeutic-M Tab) 1 tab PO 0800 [facility] Last Admin: 03/14/18 09:08 Dose: 1 tab Thiamine HCl (Vitamin B1 Tab) 100 mg PO DAILY [facility] Last Admin: 03/14/18 10:08 Dose: 100 mg Zinc Sulfate (Zinc Sulfate 220 Mg Cap) 220 mg PO DAILY [facility] Last Admin: 03/14/18 10:08 Dose: 220 mg - Labs Labs: 03/14/18 06:30 03/07/18 06:00 PT 12.5 SECONDS (9.4-12.5) 12/09/17 10:00 INR 1.09 (0.93-1.08) H 12/09/17 10:00 APTT 28.3 Seconds (25.1-36.5) 11/30/17 05:30 - Constitutional Appears: Well - Head Exam Head Exam: ATRAUMATIC, NORMAL INSPECTION, NORMOCEPHALIC - Eye Exam Eye Exam: EOMI, Normal appearance, PERRL Pupil Exam: NORMAL ACCOMODATION, PERRL - ENT Exam ENT Exam: Mucous Membranes Moist, Normal Exam - Neck Exam Neck Exam: Full ROM, Normal Inspection. absent: Lymphadenopathy - Respiratory Exam Respiratory Exam: Clear to Ausculation Bilateral, NORMAL BREATHING PATTERN - Cardiovascular Exam Cardiovascular Exam: REGULAR RHYTHM, +S1, +S2. absent: Murmur - GI/Abdominal Exam GI & Abdominal Exam: Soft, Normal Bowel Sounds. absent: Tenderness - Extremities Exam Extremities Exam: Full ROM, Normal Capillary Refill, Normal Inspection. absent : Joint Swelling, Pedal Edema - Back Exam Back Exam: NORMAL INSPECTION - Neurological Exam Neurological Exam: Alert, Awake, CN II-XII Intact, Normal Gait, Oriented x3 - Psychiatric Exam Psychiatric exam: Normal Affect, Normal Mood - Skin Skin Exam: Dry, Intact, Normal Color, Warm Assessment and Plan - Assessment and Plan (Free Text) Assessment: 57 year old male with medical history pertinent for alcohol abuse was brought in by ambulance after being found with an AMS and covered in feces in his apartment on 11/29/17. Patient was found to have possible acute lacunar infarct on imaging. Tox screen was negative, but patient also found to have positive rapid flu on admission. Patient had bacteremia on admission as well, blood culture showed coag negative staph bacteremia; underwent 6 week course of antibiotics. Currently, patient's labs and vitals are stable without sirs criteria. Patient is near his baseline mentation. Plan: Altered Mental Status, possibly 2/2 Hepatic encephalopathy VS Acute Stroke VS Depression - PT (patient refuses to participate) - Delirium precautions Baceteremia/Sepsis - Resolved - Patient needs TAHIR, but refusing - Weekly WBC, ESR, CRP Stage 1 Decubitus Ulcer - PT ordered, patient refusing - Q2 turns, air mattress, offloading boots - Folic acid, Thiamine, Zinc daily - Wound care consult Colonic Mass - GI Consult - Refusing Flex sig/colonoscopy IIDM - RISS Low, Metformin 500 BID HTN - No Acute Intervention Affective Disorder - Celexa Prophylaxis - SCD's Dispo: Patient awaiting guardian papers for placement <Deanna Schumacher - Last Filed: 03/16/18 13:12> Objective - Vital Signs/Intake and Output Vital Signs (last 24 hours): Temp Pulse Resp BP Pulse Ox 98.2 F 82 20 113/74 95 03/16/18 06:00 03/16/18 10:03 03/16/18 06:00 03/16/18 10:03 03/16/18 06:00 Intake and Output: 03/16/18 03/16/18 06:59 18:59 Intake Total 780 Balance 780 - Medications Medications: Current Medications Amlodipine Besylate (Norvasc) 10 mg PO DAILY [facility] Last Admin: 03/16/18 10:02 Dose: 10 mg Aspirin (Ecotrin) 81 mg PO DAILY [facility] Last Admin: 03/16/18 10:00 Dose: 81 mg Atorvastatin Calcium (Lipitor) 20 mg PO DIN [facility] Last Admin: 03/15/18 17:11 Dose: 20 mg Citalopram Hydrobromide (Celexa) 10 mg PO DAILY [facility] Last Admin: 03/16/18 10:00 Dose: 10 mg Enoxaparin Sodium (Lovenox) 40 mg SC DAILY [facility] PRN Reason: Protocol Last Admin: 03/16/18 10:02 Dose: 40 mg Folic Acid (Folic Acid) 1 mg PO DAILY [facility] Last Admin: 03/16/18 10:00 Dose: 1 mg Insulin Human Regular (Humulin R Low) 0 units SC [facility] PRN Reason: Protocol Last Admin: 03/16/18 12:05 Dose: 1 units Lisinopril (Zestril) 10 mg PO DAILY [facility] Last Admin: 03/16/18 10:03 Dose: 10 mg Metformin HCl (Glucophage) 500 mg PO BID [facility] Last Admin: 03/16/18 10:01 Dose: 500 mg Multivitamins/Minerals (Therapeutic-M Tab) 1 tab PO 0800 [facility] Last Admin: 03/16/18 10:03 Dose: 1 tab Thiamine HCl (Vitamin B1 Tab) 100 mg PO DAILY [facility] Last Admin: 03/16/18 10:03 Dose: 100 mg Zinc Sulfate (Zinc Sulfate 220 Mg Cap) 220 mg PO DAILY [facility] Last Admin: 03/16/18 10:04 Dose: 220 mg - Labs Labs: 03/14/18 06:30 03/15/18 08:44 PT 12.5 SECONDS (9.4-12.5) 12/09/17 10:00 INR 1.09 (0.93-1.08) H 12/09/17 10:00 APTT 28.3 Seconds (25.1-36.5) 11/30/17 05:30 Attending/Attestation - Attestation I have personally seen and examined this patient.: Yes I have fully participated in the care of the patient.: Yes I have reviewed all pertinent clinical information, including history, physical exam and plan: Yes Notes (Text): 03/16/18 13:12 Medical record note made by the resident after discussion with my direction and input after the patient was personally seen and examined by me. I have reviewed the chart and agree that the record accurately reflects by personal performance of the history, physical exam, data review, and medical decision-making, in the course for the patient. I have also personally directed the plan of care. Patient is stable at base line,.There was no overnight issue. Mental status is at base line.he is awaiting for guardianship paper work for placement.He was encouraged to ambulate and also need frequent change of position to avoid decubitus ulcer. Prognosis is guarded 03/16/18 13:12
--- NOTE | 2018-03-14 17:48 | CP.PCM.PN ---
<EliasColton - Last Filed: 03/14/18 17:41> Subjective - Date & Time of Evaluation Date of Evaluation: 03/14/18 Time of Evaluation: 08:40 - Subjective Subjective: Medicine progress note: Dr. Schumacher Patient seen and examined at bedside. No acute events overnight. Patient denies any complaints. Objective - Vital Signs/Intake and Output Vital Signs (last 24 hours): Temp Pulse Resp BP Pulse Ox 98.0 F 90 90 H 127/68 20 L 03/14/18 16:26 03/14/18 16:26 03/14/18 16:26 03/14/18 16:26 03/14/18 16:26 Intake and Output: 03/14/18 03/14/18 06:59 18:59 Intake Total 780 925 Balance 780 925 - Medications Medications: Current Medications Amlodipine Besylate (Norvasc) 10 mg PO DAILY [facility] Last Admin: 03/14/18 10:09 Dose: 10 mg Aspirin (Ecotrin) 81 mg PO DAILY [facility] Last Admin: 03/14/18 10:08 Dose: 81 mg Atorvastatin Calcium (Lipitor) 20 mg PO DIN [facility] Last Admin: 03/13/18 17:23 Dose: 20 mg Citalopram Hydrobromide (Celexa) 10 mg PO DAILY [facility] Last Admin: 03/14/18 10:08 Dose: 10 mg Enoxaparin Sodium (Lovenox) 40 mg SC DAILY [facility] PRN Reason: Protocol Last Admin: 03/14/18 10:09 Dose: 40 mg Folic Acid (Folic Acid) 1 mg PO DAILY [facility] Last Admin: 03/14/18 10:08 Dose: 1 mg Insulin Human Regular (Humulin R Low) 0 units SC [facility] PRN Reason: Protocol Last Admin: 03/14/18 16:35 Dose: Not Given Lisinopril (Zestril) 10 mg PO DAILY [facility] Last Admin: 03/14/18 10:08 Dose: 10 mg Metformin HCl (Glucophage) 500 mg PO BID [facility] Last Admin: 03/14/18 10:09 Dose: 500 mg Multivitamins/Minerals (Therapeutic-M Tab) 1 tab PO 0800 [facility] Last Admin: 03/14/18 09:08 Dose: 1 tab Thiamine HCl (Vitamin B1 Tab) 100 mg PO DAILY [facility] Last Admin: 03/14/18 10:08 Dose: 100 mg Zinc Sulfate (Zinc Sulfate 220 Mg Cap) 220 mg PO DAILY [facility] Last Admin: 03/14/18 10:08 Dose: 220 mg - Labs Labs: 03/14/18 06:30 03/07/18 06:00 PT 12.5 SECONDS (9.4-12.5) 12/09/17 10:00 INR 1.09 (0.93-1.08) H 12/09/17 10:00 APTT 28.3 Seconds (25.1-36.5) 11/30/17 05:30 - Constitutional Appears: Well - Head Exam Head Exam: ATRAUMATIC, NORMAL INSPECTION, NORMOCEPHALIC - Eye Exam Eye Exam: EOMI, Normal appearance, PERRL Pupil Exam: NORMAL ACCOMODATION, PERRL - ENT Exam ENT Exam: Mucous Membranes Moist, Normal Exam - Neck Exam Neck Exam: Full ROM, Normal Inspection. absent: Lymphadenopathy - Respiratory Exam Respiratory Exam: Clear to Ausculation Bilateral, NORMAL BREATHING PATTERN - Cardiovascular Exam Cardiovascular Exam: REGULAR RHYTHM, +S1, +S2. absent: Murmur - GI/Abdominal Exam GI & Abdominal Exam: Soft, Normal Bowel Sounds. absent: Tenderness - Rectal Exam Rectal Exam: NORMAL INSPECTION - Exam Exam: Circumcision, NORMAL INSPECTION External exam: NORMAL EXTERNAL EXAM Speculum exam: NORMAL SPECULUM EXAM Bimanual exam: NORMAL BIMANUAL EXAM - Extremities Exam Extremities Exam: Full ROM, Normal Capillary Refill, Normal Inspection. absent : Joint Swelling, Pedal Edema - Back Exam Back Exam: NORMAL INSPECTION - Neurological Exam Neurological Exam: Alert, Awake, CN II-XII Intact, Normal Gait, Oriented x3 - Psychiatric Exam Psychiatric exam: Normal Affect, Normal Mood - Skin Skin Exam: Dry, Intact, Normal Color, Warm Assessment and Plan - Assessment and Plan (Free Text) Assessment: New Cerebellar Infarct - Neuro (Korya) ASA 81 PO QD Lipitor 20 PO HS Amlodipine 10 QD - follow up BP - PT/OT - Acute Rehab CT head (03/10) - suspect subacute/acute cerebellar infarct MRI (03/11) - Subacute R. superior cerebellar infarction Carotid A. US (03/11) - b/l 20-39% prox. 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 - Pepcid 20 PO BID Prophylaxis - Heparin/SCD/Pepcid 20 <Deanna Schumacher - Last Filed: 03/16/18 13:13> Objective - Vital Signs/Intake and Output Vital Signs (last 24 hours): Temp Pulse Resp BP Pulse Ox 98.2 F 82 20 113/74 95 03/16/18 06:00 03/16/18 10:03 03/16/18 06:00 03/16/18 10:03 03/16/18 06:00 Intake and Output: 03/16/18 03/16/18 06:59 18:59 Intake Total 780 Balance 780 - Medications Medications: Current Medications Amlodipine Besylate (Norvasc) 10 mg PO DAILY [facility] Last Admin: 03/16/18 10:02 Dose: 10 mg Aspirin (Ecotrin) 81 mg PO DAILY [facility] Last Admin: 03/16/18 10:00 Dose: 81 mg Atorvastatin Calcium (Lipitor) 20 mg PO DIN [facility] Last Admin: 03/15/18 17:11 Dose: 20 mg Citalopram Hydrobromide (Celexa) 10 mg PO DAILY [facility] Last Admin: 03/16/18 10:00 Dose: 10 mg Enoxaparin Sodium (Lovenox) 40 mg SC DAILY [facility] PRN Reason: Protocol Last Admin: 03/16/18 10:02 Dose: 40 mg Folic Acid (Folic Acid) 1 mg PO DAILY [facility] Last Admin: 03/16/18 10:00 Dose: 1 mg Insulin Human Regular (Humulin R Low) 0 units SC [facility] PRN Reason: Protocol Last Admin: 03/16/18 12:05 Dose: 1 units Lisinopril (Zestril) 10 mg PO DAILY [facility] Last Admin: 03/16/18 10:03 Dose: 10 mg Metformin HCl (Glucophage) 500 mg PO BID [facility] Last Admin: 03/16/18 10:01 Dose: 500 mg Multivitamins/Minerals (Therapeutic-M Tab) 1 tab PO 0800 [facility] Last Admin: 03/16/18 10:03 Dose: 1 tab Thiamine HCl (Vitamin B1 Tab) 100 mg PO DAILY [facility] Last Admin: 03/16/18 10:03 Dose: 100 mg Zinc Sulfate (Zinc Sulfate 220 Mg Cap) 220 mg PO DAILY [facility] Last Admin: 03/16/18 10:04 Dose: 220 mg - Labs Labs: 03/14/18 06:30 03/15/18 08:44 PT 12.5 SECONDS (9.4-12.5) 12/09/17 10:00 INR 1.09 (0.93-1.08) H 12/09/17 10:00 APTT 28.3 Seconds (25.1-36.5) 11/30/17 05:30 Attending/Attestation - Attestation I have personally seen and examined this patient.: Yes I have fully participated in the care of the patient.: Yes I have reviewed all pertinent clinical information, including history, physical exam and plan: Yes
[2018-03-15 08:55] LABS: ALB/GLOB RATIO 1.3 (1.1-1.8); ALBUMIN 3.9 g/dL (3.0-4.8); ALT/SGPT 30 U/L (7-56); AST/SGOT 26 U/L (17-59); BLOOD UREA NITROGEN 13 mg/dL (7-21); CALCIUM 9.3 mg/dL (8.4-10.5); GFR NON-AFRICAN AMERICAN > 60
[2018-03-15] MEDS: Insulin Reg-LOW-Coverage SC SCH ×4 (09:43→21:52)
[2018-03-15] MEDS: Enoxaparin 40 mg Syringe SC SCH (09:44)
[2018-03-15] MEDS: Multivitamin With Minerals Tab PO SCH (09:45)
--- NOTE | 2018-03-15 14:52 | CP.PCM.PN ---
<Ady Long - Last Filed: 03/15/18 14:48> Subjective - Date & Time of Evaluation Date of Evaluation: 03/15/18 Time of Evaluation: 14:48 - Subjective Subjective: Patient seen and examined at bedside. No changes at this time. Refuses to get out of bed or participate in PT. Objective - Vital Signs/Intake and Output Vital Signs (last 24 hours): Temp Pulse Resp BP Pulse Ox 97.5 F L 92 H 20 102/67 95 03/15/18 07:38 03/15/18 09:46 03/15/18 07:38 03/15/18 09:46 03/15/18 07:38 Intake and Output: 03/15/18 03/15/18 06:59 18:59 Intake Total 660 120 Balance 660 120 - Medications Medications: Current Medications Amlodipine Besylate (Norvasc) 10 mg PO DAILY [facility] Last Admin: 03/15/18 09:45 Dose: 10 mg Aspirin (Ecotrin) 81 mg PO DAILY [facility] Last Admin: 03/15/18 09:43 Dose: 81 mg Atorvastatin Calcium (Lipitor) 20 mg PO DIN [facility] Last Admin: 03/14/18 18:27 Dose: 20 mg Citalopram Hydrobromide (Celexa) 10 mg PO DAILY [facility] Last Admin: 03/15/18 09:43 Dose: 10 mg Enoxaparin Sodium (Lovenox) 40 mg SC DAILY [facility] PRN Reason: Protocol Last Admin: 03/15/18 09:44 Dose: 40 mg Folic Acid (Folic Acid) 1 mg PO DAILY [facility] Last Admin: 03/15/18 09:43 Dose: 1 mg Insulin Human Regular (Humulin R Low) 0 units SC [facility] PRN Reason: Protocol Last Admin: 03/15/18 12:00 Dose: 1 units Lisinopril (Zestril) 10 mg PO DAILY [facility] Last Admin: 03/15/18 09:46 Dose: 10 mg Metformin HCl (Glucophage) 500 mg PO BID [facility] Last Admin: 03/15/18 09:43 Dose: 500 mg Multivitamins/Minerals (Therapeutic-M Tab) 1 tab PO 0800 [facility] Last Admin: 03/15/18 09:45 Dose: 1 tab Thiamine HCl (Vitamin B1 Tab) 100 mg PO DAILY [facility] Last Admin: 03/15/18 09:46 Dose: 100 mg Zinc Sulfate (Zinc Sulfate 220 Mg Cap) 220 mg PO DAILY [facility] Last Admin: 03/15/18 09:46 Dose: 220 mg - Labs Labs: 03/14/18 06:30 03/15/18 08:44 PT 12.5 SECONDS (9.4-12.5) 12/09/17 10:00 INR 1.09 (0.93-1.08) H 12/09/17 10:00 APTT 28.3 Seconds (25.1-36.5) 11/30/17 05:30 - Constitutional Appears: Well - Head Exam Head Exam: ATRAUMATIC, NORMAL INSPECTION, NORMOCEPHALIC - Eye Exam Eye Exam: EOMI, Normal appearance, PERRL Pupil Exam: NORMAL ACCOMODATION, PERRL - ENT Exam ENT Exam: Mucous Membranes Moist, Normal Exam - Neck Exam Neck Exam: Full ROM, Normal Inspection. absent: Lymphadenopathy - Respiratory Exam Respiratory Exam: Clear to Ausculation Bilateral, NORMAL BREATHING PATTERN - Cardiovascular Exam Cardiovascular Exam: REGULAR RHYTHM, +S1, +S2. absent: Murmur - GI/Abdominal Exam GI & Abdominal Exam: Soft, Normal Bowel Sounds. absent: Distended, Tenderness - Extremities Exam Extremities Exam: Full ROM, Normal Capillary Refill, Normal Inspection. absent : Joint Swelling, Pedal Edema - Back Exam Back Exam: NORMAL INSPECTION - Neurological Exam Neurological Exam: Alert, Awake, CN II-XII Intact, Normal Gait, Oriented x3 - Psychiatric Exam Psychiatric exam: Normal Affect, Normal Mood - Skin Skin Exam: Dry, Intact, Normal Color, Warm Assessment and Plan - Assessment and Plan (Free Text) Assessment: (1) Altered mental status Assessment & Plan: resolved- currently at baseline mentation which waxes and wanes Delirium precautions Patient mentation clinically unchanged, able to answer simple questions with simple answers, poor insight Likely secondary to depression vs. previous brain injury in form of metabolic encephalopathy vs residual stroke deficits PT reordered to evaluate for deconditioning, patient still refusing to participate Status: Resolved (2) Ischemic stroke Status: Acute (3) Coag negative Staphylococcus bacteremia Assessment & Plan: Last bld clx negative 12/04/17 with completion of 6 week course of antibiotics Monitor WBC, ESR, CRP weekly Echocardiogram unable to rule out vegetations, family is unavailable for consent for TAHIR Status: Resolved (4) Stage 1 decubitus ulcer Assessment & Plan: Patient refuses to get out of bed to chair Refusing activity with PT Skin break down noticed on lateral posterior lower back/hip Continue with Q2 turns Folic acid, Thiamine, Zinc daily Air mattress Wound care consult Off loading boots Status: Acute (5) Colonic mass Assessment & Plan: CT Abd/Pelvis showing colonic mass and hepatic lesions GI consulted and following patient Flex sig/colonoscopy refused by patient at this time Family unable to be contacted for consent Status: Chronic (6) Diabetes mellitus type 2 in nonobese Assessment & Plan: HgA1c is 7.4 Continue ISS low Metformin 500mg BID Carb consistent diet Status: Chronic (7) HTN (hypertension) Status: Acute (8) Affective disorder Assessment & Plan: Celexa 10mg PO Daily Status: Chronic (9) Prophylactic measure Assessment & Plan: No GI PPX indicated this time SCDs Dispo: Patient lacks decision making capacity and is unable to comprehend his diagnosis, medical treatment, potential benefit and risk associated with and without treatment. Guardianship paperwork being processed followed by potential placement. Court scheduled for 03/24 concerning guardianship Status: Acute <Deanna Schumacher - Last Filed: 03/16/18 13:15> Objective - Vital Signs/Intake and Output Vital Signs (last 24 hours): Temp Pulse Resp BP Pulse Ox 98.2 F 82 20 113/74 95 03/16/18 06:00 03/16/18 10:03 03/16/18 06:00 03/16/18 10:03 03/16/18 06:00 Intake and Output: 03/16/18 03/16/18 06:59 18:59 Intake Total 780 Balance 780 - Medications Medications: Current Medications Amlodipine Besylate (Norvasc) 10 mg PO DAILY [facility] Last Admin: 03/16/18 10:02 Dose: 10 mg Aspirin (Ecotrin) 81 mg PO DAILY [facility] Last Admin: 03/16/18 10:00 Dose: 81 mg Atorvastatin Calcium (Lipitor) 20 mg PO DIN [facility] Last Admin: 03/15/18 17:11 Dose: 20 mg Citalopram Hydrobromide (Celexa) 10 mg PO DAILY [facility] Last Admin: 03/16/18 10:00 Dose: 10 mg Enoxaparin Sodium (Lovenox) 40 mg SC DAILY [facility] PRN Reason: Protocol Last Admin: 03/16/18 10:02 Dose: 40 mg Folic Acid (Folic Acid) 1 mg PO DAILY [facility] Last Admin: 03/16/18 10:00 Dose: 1 mg Insulin Human Regular (Humulin R Low) 0 units SC [facility] PRN Reason: Protocol Last Admin: 03/16/18 12:05 Dose: 1 units Lisinopril (Zestril) 10 mg PO DAILY [facility] Last Admin: 03/16/18 10:03 Dose: 10 mg Metformin HCl (Glucophage) 500 mg PO BID [facility] Last Admin: 03/16/18 10:01 Dose: 500 mg Multivitamins/Minerals (Therapeutic-M Tab) 1 tab PO 0800 [facility] Last Admin: 03/16/18 10:03 Dose: 1 tab Thiamine HCl (Vitamin B1 Tab) 100 mg PO DAILY [facility] Last Admin: 03/16/18 10:03 Dose: 100 mg Zinc Sulfate (Zinc Sulfate 220 Mg Cap) 220 mg PO DAILY [facility] Last Admin: 03/16/18 10:04 Dose: 220 mg - Labs Labs: 03/14/18 06:30 03/15/18 08:44 PT 12.5 SECONDS (9.4-12.5) 12/09/17 10:00 INR 1.09 (0.93-1.08) H 12/09/17 10:00 APTT 28.3 Seconds (25.1-36.5) 11/30/17 05:30 Attending/Attestation - Attestation I have personally seen and examined this patient.: Yes I have fully participated in the care of the patient.: Yes I have reviewed all pertinent clinical information, including history, physical exam and plan: Yes Notes (Text): 03/16/18 13:14 Medical record note made by the resident after discussion with my direction and input after the patient was personally seen and examined by me. I have reviewed the chart and agree that the record accurately reflects by personal performance of the history, physical exam, data review, and medical decision-making, in the course for the patient. I have also personally directed the plan of care. Patient is stable at base line.Mental status is at base line.he is awaiting for guardianship paper work for placement.He was encouraged to ambulate and also need frequent change of position to avoid decubitus ulcer. Prognosis is guarded
--- NOTE | 2018-03-16 00:34 | PN ---
DATE: 03/15/2018 SUBJECTIVE: Patient is in bed, in no acute distress, was seen earlier today. PHYSICAL EXAMINATION: VITAL SIGNS: Temperature is 98, blood pressure is 120/70, respiratory rate of 15. HEENT: Unremarkable. NECK: Supple. LUNGS: Have decreased breath sounds. HEART: Normal S1, S2. ABDOMEN: Soft, nontender. LABORATORY EXAMINATIONS: Reviewed and patient's white count of 8.9. Review of the orders confirms the patient to be off of antibiotics. ASSESSMENT AND PLAN: This is a 57-year-old male with coag-negative Staphylococcus and Strep viridans bacteremia, right gluteal and back cellulitis, multifocal healthcare-associated pneumonia on top of influenza A and Sammie infection. Currently, off of antibiotics, afebrile, normal white count. Patient is at risk for developing nosocomial infections. Daniel Torres MD
[2018-03-16] MEDS: Insulin Reg-LOW-Coverage SC SCH ×4 (10:01→22:04)
[2018-03-16] MEDS: Enoxaparin 40 mg Syringe SC SCH (10:02)
[2018-03-16] MEDS: Multivitamin With Minerals Tab PO SCH (10:03)
--- NOTE | 2018-03-16 11:52 | CP.PCM.PN ---
<Ady Long - Last Filed: 03/16/18 11:48> Subjective - Date & Time of Evaluation Date of Evaluation: 03/16/18 Time of Evaluation: 11:48 - Subjective Subjective: Patient seen and examined at bedside. Doing well with no complaints at this. Refusing to get out of bed for PT. Objective - Vital Signs/Intake and Output Vital Signs (last 24 hours): Temp Pulse Resp BP Pulse Ox 98.2 F 82 20 113/74 95 03/16/18 06:00 03/16/18 10:03 03/16/18 06:00 03/16/18 10:03 03/16/18 06:00 Intake and Output: 03/16/18 03/16/18 06:59 18:59 Intake Total 780 Balance 780 - Medications Medications: Current Medications Amlodipine Besylate (Norvasc) 10 mg PO DAILY [facility] Last Admin: 03/16/18 10:02 Dose: 10 mg Aspirin (Ecotrin) 81 mg PO DAILY [facility] Last Admin: 03/16/18 10:00 Dose: 81 mg Atorvastatin Calcium (Lipitor) 20 mg PO DIN [facility] Last Admin: 03/15/18 17:11 Dose: 20 mg Citalopram Hydrobromide (Celexa) 10 mg PO DAILY [facility] Last Admin: 03/16/18 10:00 Dose: 10 mg Enoxaparin Sodium (Lovenox) 40 mg SC DAILY [facility] PRN Reason: Protocol Last Admin: 03/16/18 10:02 Dose: 40 mg Folic Acid (Folic Acid) 1 mg PO DAILY [facility] Last Admin: 03/16/18 10:00 Dose: 1 mg Insulin Human Regular (Humulin R Low) 0 units SC [facility] PRN Reason: Protocol Last Admin: 03/16/18 10:01 Dose: Not Given Lisinopril (Zestril) 10 mg PO DAILY [facility] Last Admin: 03/16/18 10:03 Dose: 10 mg Metformin HCl (Glucophage) 500 mg PO BID [facility] Last Admin: 03/16/18 10:01 Dose: 500 mg Multivitamins/Minerals (Therapeutic-M Tab) 1 tab PO 0800 [facility] Last Admin: 03/16/18 10:03 Dose: 1 tab Thiamine HCl (Vitamin B1 Tab) 100 mg PO DAILY [facility] Last Admin: 03/16/18 10:03 Dose: 100 mg Zinc Sulfate (Zinc Sulfate 220 Mg Cap) 220 mg PO DAILY [facility] Last Admin: 03/16/18 10:04 Dose: 220 mg - Labs Labs: 03/14/18 06:30 03/15/18 08:44 PT 12.5 SECONDS (9.4-12.5) 12/09/17 10:00 INR 1.09 (0.93-1.08) H 12/09/17 10:00 APTT 28.3 Seconds (25.1-36.5) 11/30/17 05:30 - Constitutional Appears: Well - Head Exam Head Exam: ATRAUMATIC, NORMAL INSPECTION, NORMOCEPHALIC - Eye Exam Eye Exam: EOMI, Normal appearance, PERRL Pupil Exam: NORMAL ACCOMODATION, PERRL - ENT Exam ENT Exam: Mucous Membranes Moist, Normal Exam - Neck Exam Neck Exam: Full ROM, Normal Inspection. absent: Lymphadenopathy - Respiratory Exam Respiratory Exam: Clear to Ausculation Bilateral, NORMAL BREATHING PATTERN - Cardiovascular Exam Cardiovascular Exam: REGULAR RHYTHM, +S1, +S2. absent: Murmur - GI/Abdominal Exam GI & Abdominal Exam: Soft, Normal Bowel Sounds. absent: Distended, Tenderness - Extremities Exam Extremities Exam: Full ROM, Normal Capillary Refill, Normal Inspection. absent : Joint Swelling, Pedal Edema - Back Exam Back Exam: NORMAL INSPECTION - Neurological Exam Neurological Exam: Alert, Awake, CN II-XII Intact, Normal Gait, Oriented x3 - Psychiatric Exam Psychiatric exam: Normal Affect, Normal Mood - Skin Skin Exam: Dry, Intact, Normal Color, Warm Assessment and Plan - Assessment and Plan (Free Text) Assessment: (1) Altered mental status Assessment & Plan: resolved- currently at baseline mentation which waxes and wanes Delirium precautions Patient mentation clinically unchanged, able to answer simple questions with simple answers, poor insight Likely secondary to depression vs. previous brain injury in form of metabolic encephalopathy vs residual stroke deficits PT reordered to evaluate for deconditioning, patient still refusing to participate Status: Resolved (2) Ischemic stroke Status: Acute (3) Coag negative Staphylococcus bacteremia Assessment & Plan: Last bld clx negative 12/04/17 with completion of 6 week course of antibiotics Monitor WBC, ESR, CRP weekly Echocardiogram unable to rule out vegetations, family is unavailable for consent for TAHIR Status: Resolved (4) Stage 1 decubitus ulcer Assessment & Plan: Patient refuses to get out of bed to chair Refusing activity with PT Skin break down noticed on lateral posterior lower back/hip Continue with Q2 turns Folic acid, Thiamine, Zinc daily Air mattress Wound care consult Off loading boots Status: Acute (5) Colonic mass Assessment & Plan: CT Abd/Pelvis showing colonic mass and hepatic lesions GI consulted and following patient Flex sig/colonoscopy refused by patient at this time Family unable to be contacted for consent Status: Chronic (6) Diabetes mellitus type 2 in nonobese Assessment & Plan: HgA1c is 7.4 Continue ISS low Metformin 500mg BID Carb consistent diet Status: Chronic (7) HTN (hypertension) Status: Acute (8) Affective disorder Assessment & Plan: Celexa 10mg PO Daily Status: Chronic (9) Prophylactic measure Assessment & Plan: No GI PPX indicated this time SCDs Dispo: Patient lacks decision making capacity and is unable to comprehend his diagnosis, medical treatment, potential benefit and risk associated with and without treatment. Guardianship paperwork being processed followed by potential placement. Court scheduled for 03/24 concerning guardianship Status: Acute <Deanna Schumacher - Last Filed: 03/16/18 12:01> Objective - Vital Signs/Intake and Output Vital Signs (last 24 hours): Temp Pulse Resp BP Pulse Ox 98.2 F 82 20 113/74 95 03/16/18 06:00 03/16/18 10:03 03/16/18 06:00 03/16/18 10:03 03/16/18 06:00 Intake and Output: 03/16/18 03/16/18 06:59 18:59 Intake Total 780 Balance 780 - Medications Medications: Current Medications Amlodipine Besylate (Norvasc) 10 mg PO DAILY [facility] Last Admin: 03/16/18 10:02 Dose: 10 mg Aspirin (Ecotrin) 81 mg PO DAILY [facility] Last Admin: 03/16/18 10:00 Dose: 81 mg Atorvastatin Calcium (Lipitor) 20 mg PO DIN [facility] Last Admin: 03/15/18 17:11 Dose: 20 mg Citalopram Hydrobromide (Celexa) 10 mg PO DAILY [facility] Last Admin: 03/16/18 10:00 Dose: 10 mg Enoxaparin Sodium (Lovenox) 40 mg SC DAILY [facility] PRN Reason: Protocol Last Admin: 03/16/18 10:02 Dose: 40 mg Folic Acid (Folic Acid) 1 mg PO DAILY [facility] Last Admin: 03/16/18 10:00 Dose: 1 mg Insulin Human Regular (Humulin R Low) 0 units SC ACHS [facility] PRN Reason: Protocol Last Admin: 03/16/18 10:01 Dose: Not Given Lisinopril (Zestril) 10 mg PO DAILY [facility] Last Admin: 03/16/18 10:03 Dose: 10 mg Metformin HCl (Glucophage) 500 mg PO BID [facility] Last Admin: 03/16/18 10:01 Dose: 500 mg Multivitamins/Minerals (Therapeutic-M Tab) 1 tab PO 0800 [facility] Last Admin: 03/16/18 10:03 Dose: 1 tab Thiamine HCl (Vitamin B1 Tab) 100 mg PO DAILY [facility] Last Admin: 03/16/18 10:03 Dose: 100 mg Zinc Sulfate (Zinc Sulfate 220 Mg Cap) 220 mg PO DAILY [facility] Last Admin: 03/16/18 10:04 Dose: 220 mg - Labs Labs: 03/14/18 06:30 03/15/18 08:44 PT 12.5 SECONDS (9.4-12.5) 12/09/17 10:00 INR 1.09 (0.93-1.08) H 12/09/17 10:00 APTT 28.3 Seconds (25.1-36.5) 11/30/17 05:30 Attending/Attestation - Attestation I have personally seen and examined this patient.: Yes I have fully participated in the care of the patient.: Yes I have reviewed all pertinent clinical information, including history, physical exam and plan: Yes Notes (Text): 03/16/18 12:01 Medical record note made by the resident after discussion with my direction and input after the patient was personally seen and examined by me. I have reviewed the chart and agree that the record accurately reflects by personal performance of the history, physical exam, data review, and medical decision-making, in the course for the patient. I have also personally directed the plan of care.
--- NOTE | 2018-03-16 19:20 | CP.PCM.PN ---
Subjective - Date & Time of Evaluation Date of Evaluation: 03/16/18 Time of Evaluation: 10:20 - Subjective Subjective: Afebrile, not in distress. Objective - Vital Signs/Intake and Output Vital Signs (last 24 hours): Temp Pulse Resp BP Pulse Ox 98.2 F 82 20 113/74 95 03/16/18 06:00 03/16/18 06:00 03/16/18 06:00 03/16/18 06:00 03/16/18 06:00 Intake and Output: 03/16/18 03/16/18 06:59 18:59 Intake Total 780 Balance 780 - Medications Medications: Current Medications Amlodipine Besylate (Norvasc) 10 mg PO DAILY [facility] Last Admin: 03/15/18 09:45 Dose: 10 mg Aspirin (Ecotrin) 81 mg PO DAILY [facility] Last Admin: 03/15/18 09:43 Dose: 81 mg Atorvastatin Calcium (Lipitor) 20 mg PO DIN [facility] Last Admin: 03/15/18 17:11 Dose: 20 mg Citalopram Hydrobromide (Celexa) 10 mg PO DAILY [facility] Last Admin: 03/15/18 09:43 Dose: 10 mg Enoxaparin Sodium (Lovenox) 40 mg SC DAILY [facility] PRN Reason: Protocol Last Admin: 03/15/18 09:44 Dose: 40 mg Folic Acid (Folic Acid) 1 mg PO DAILY [facility] Last Admin: 03/15/18 09:43 Dose: 1 mg Insulin Human Regular (Humulin R Low) 0 units SC ACHS [facility] PRN Reason: Protocol Last Admin: 03/15/18 21:52 Dose: Not Given Lisinopril (Zestril) 10 mg PO DAILY [facility] Last Admin: 03/15/18 09:46 Dose: 10 mg Metformin HCl (Glucophage) 500 mg PO BID [facility] Last Admin: 03/15/18 17:11 Dose: 500 mg Multivitamins/Minerals (Therapeutic-M Tab) 1 tab PO 0800 [facility] Last Admin: 03/15/18 09:45 Dose: 1 tab Thiamine HCl (Vitamin B1 Tab) 100 mg PO DAILY [facility] Last Admin: 03/15/18 09:46 Dose: 100 mg Zinc Sulfate (Zinc Sulfate 220 Mg Cap) 220 mg PO DAILY [facility] Last Admin: 03/15/18 09:46 Dose: 220 mg - Labs Labs: 03/14/18 06:30 03/15/18 08:44 PT 12.5 SECONDS (9.4-12.5) 12/09/17 10:00 INR 1.09 (0.93-1.08) H 12/09/17 10:00 APTT 28.3 Seconds (25.1-36.5) 11/30/17 05:30 - Constitutional Appears: Non-toxic, Chronically Ill - Head Exam Head Exam: NORMAL INSPECTION - Respiratory Exam Respiratory Exam: Decreased Breath Sounds - Cardiovascular Exam Cardiovascular Exam: +S1, +S2 - GI/Abdominal Exam GI & Abdominal Exam: Soft. absent: Tenderness Assessment and Plan - Assessment and Plan (Free Text) Plan: Assessment S/P sepsis due to strep viridans and CoNS bacteremia from right gluteal and back cellulitis S/P multifocal HCAP on top of Influenza A infection S/P Sammie infection of sacral area as well peripheral vascular disease Plan patient had completed 42 days of antibiotics on this admission - continue to monitor clinically off antibiotics since he is at risk for nosocomial infections patient waiting for guardianship
--- NOTE | 2018-03-17 07:50 | CP.PCM.PN ---
<Ady Long - Last Filed: 03/17/18 07:48> Subjective - Date & Time of Evaluation Date of Evaluation: 03/17/18 Time of Evaluation: 07:49 - Subjective Subjective: patient seen and examined at bedside. Doing well with no complaints at this time. Refusing to get out of the bed. No other changes at this time. Objective - Vital Signs/Intake and Output Vital Signs (last 24 hours): Temp Pulse Resp BP Pulse Ox 97.6 F 82 18 130/80 97 03/17/18 07:30 03/17/18 07:30 03/17/18 07:30 03/17/18 07:30 03/17/18 07:30 - Medications Medications: Current Medications Amlodipine Besylate (Norvasc) 10 mg PO DAILY [facility] Last Admin: 03/16/18 10:02 Dose: 10 mg Aspirin (Ecotrin) 81 mg PO DAILY [facility] Last Admin: 03/16/18 10:00 Dose: 81 mg Atorvastatin Calcium (Lipitor) 20 mg PO DIN [facility] Last Admin: 03/16/18 17:31 Dose: 20 mg Citalopram Hydrobromide (Celexa) 10 mg PO DAILY [facility] Last Admin: 03/16/18 10:00 Dose: 10 mg Enoxaparin Sodium (Lovenox) 40 mg SC DAILY [facility] PRN Reason: Protocol Last Admin: 03/16/18 10:02 Dose: 40 mg Folic Acid (Folic Acid) 1 mg PO DAILY [facility] Last Admin: 03/16/18 10:00 Dose: 1 mg Insulin Human Regular (Humulin R Low) 0 units SC ACHS [facility] PRN Reason: Protocol Last Admin: 03/16/18 22:04 Dose: Not Given Lisinopril (Zestril) 10 mg PO DAILY [facility] Last Admin: 03/16/18 10:03 Dose: 10 mg Metformin HCl (Glucophage) 500 mg PO BID [facility] Last Admin: 03/16/18 17:30 Dose: 500 mg Multivitamins/Minerals (Therapeutic-M Tab) 1 tab PO 0800 [facility] Last Admin: 03/16/18 10:03 Dose: 1 tab Thiamine HCl (Vitamin B1 Tab) 100 mg PO DAILY [facility] Last Admin: 03/16/18 10:03 Dose: 100 mg Zinc Sulfate (Zinc Sulfate 220 Mg Cap) 220 mg PO DAILY [facility] Last Admin: 03/16/18 10:04 Dose: 220 mg - Labs Labs: 03/14/18 06:30 03/15/18 08:44 PT 12.5 SECONDS (9.4-12.5) 12/09/17 10:00 INR 1.09 (0.93-1.08) H 12/09/17 10:00 APTT 28.3 Seconds (25.1-36.5) 11/30/17 05:30 - Constitutional Appears: Well - Head Exam Head Exam: ATRAUMATIC, NORMAL INSPECTION, NORMOCEPHALIC - Eye Exam Eye Exam: EOMI, Normal appearance, PERRL Pupil Exam: NORMAL ACCOMODATION, PERRL - ENT Exam ENT Exam: Mucous Membranes Moist, Normal Exam - Neck Exam Neck Exam: Full ROM, Normal Inspection. absent: Lymphadenopathy - Respiratory Exam Respiratory Exam: Clear to Ausculation Bilateral, NORMAL BREATHING PATTERN - Cardiovascular Exam Cardiovascular Exam: REGULAR RHYTHM, +S1, +S2. absent: Murmur - GI/Abdominal Exam GI & Abdominal Exam: Soft, Normal Bowel Sounds. absent: Distended, Tenderness - Extremities Exam Extremities Exam: Full ROM, Normal Capillary Refill, Normal Inspection. absent : Joint Swelling, Pedal Edema - Back Exam Back Exam: NORMAL INSPECTION - Neurological Exam Neurological Exam: Alert, Awake, CN II-XII Intact, Normal Gait, Oriented x3 - Psychiatric Exam Psychiatric exam: Normal Affect, Normal Mood - Skin Skin Exam: Dry, Intact, Normal Color, Warm Assessment and Plan - Assessment and Plan (Free Text) Assessment: (1) Altered mental status Assessment & Plan: resolved- currently at baseline mentation which waxes and wanes Delirium precautions Patient mentation clinically unchanged, able to answer simple questions with simple answers, poor insight Likely secondary to depression vs. previous brain injury in form of metabolic encephalopathy vs residual stroke deficits PT reordered to evaluate for deconditioning, patient still refusing to participate Status: Resolved (2) Ischemic stroke Status: Acute (3) Coag negative Staphylococcus bacteremia Assessment & Plan: Last bld clx negative 12/04/17 with completion of 6 week course of antibiotics Monitor WBC, ESR, CRP weekly Echocardiogram unable to rule out vegetations, family is unavailable for consent for TAHIR Status: Resolved (4) Stage 1 decubitus ulcer Assessment & Plan: Patient refuses to get out of bed to chair Refusing activity with PT Skin break down noticed on lateral posterior lower back/hip Continue with Q2 turns Folic acid, Thiamine, Zinc daily Air mattress Wound care consult Off loading boots Status: Acute (5) Colonic mass Assessment & Plan: CT Abd/Pelvis showing colonic mass and hepatic lesions GI consulted and following patient Flex sig/colonoscopy refused by patient at this time Family unable to be contacted for consent Status: Chronic (6) Diabetes mellitus type 2 in nonobese Assessment & Plan: HgA1c is 7.4 Continue ISS low Metformin 500mg BID Carb consistent diet Status: Chronic (7) HTN (hypertension) Status: Acute (8) Affective disorder Assessment & Plan: Celexa 10mg PO Daily Status: Chronic (9) Prophylactic measure Assessment & Plan: No GI PPX indicated this time SCDs Dispo: Patient lacks decision making capacity and is unable to comprehend his diagnosis, medical treatment, potential benefit and risk associated with and without treatment. Guardianship paperwork being processed followed by potential placement. Court scheduled for 03/24 concerning guardianship Status: Acute <Deanna Schumacher - Last Filed: 03/17/18 15:47> Objective - Vital Signs/Intake and Output Vital Signs (last 24 hours): Temp Pulse Resp BP Pulse Ox 97.6 F 82 18 130/80 97 03/17/18 07:30 03/17/18 09:54 03/17/18 07:30 03/17/18 09:54 03/17/18 07:30 Intake and Output: 03/17/18 03/17/18 06:59 18:59 Intake Total 780 Balance 780 - Medications Medications: Current Medications Amlodipine Besylate (Norvasc) 10 mg PO DAILY [facility] Last Admin: 03/17/18 09:53 Dose: 10 mg Aspirin (Ecotrin) 81 mg PO DAILY [facility] Last Admin: 03/17/18 09:52 Dose: 81 mg Atorvastatin Calcium (Lipitor) 20 mg PO DIN [facility] Last Admin: 03/16/18 17:31 Dose: 20 mg Citalopram Hydrobromide (Celexa) 10 mg PO DAILY [facility] Last Admin: 03/17/18 09:51 Dose: 10 mg Enoxaparin Sodium (Lovenox) 40 mg SC DAILY [facility] PRN Reason: Protocol Last Admin: 03/17/18 09:53 Dose: 40 mg Folic Acid (Folic Acid) 1 mg PO DAILY [facility] Last Admin: 03/17/18 09:52 Dose: 1 mg Insulin Human Regular (Humulin R Low) 0 units SC ACHS [facility] PRN Reason: Protocol Last Admin: 03/17/18 12:19 Dose: Not Given Lisinopril (Zestril) 10 mg PO DAILY [facility] Last Admin: 03/17/18 09:54 Dose: 10 mg Metformin HCl (Glucophage) 500 mg PO BID [facility] Last Admin: 03/17/18 09:52 Dose: 500 mg Multivitamins/Minerals (Therapeutic-M Tab) 1 tab PO 0800 [facility] Last Admin: 03/17/18 09:54 Dose: 1 tab Thiamine HCl (Vitamin B1 Tab) 100 mg PO DAILY [facility] Last Admin: 03/17/18 09:54 Dose: 100 mg Zinc Sulfate (Zinc Sulfate 220 Mg Cap) 220 mg PO DAILY [facility] Last Admin: 03/17/18 09:55 Dose: 220 mg - Labs Labs: 03/14/18 06:30 03/15/18 08:44 PT 12.5 SECONDS (9.4-12.5) 12/09/17 10:00 INR 1.09 (0.93-1.08) H 12/09/17 10:00 APTT 28.3 Seconds (25.1-36.5) 11/30/17 05:30 Attending/Attestation - Attestation I have personally seen and examined this patient.: Yes I have fully participated in the care of the patient.: Yes I have reviewed all pertinent clinical information, including history, physical exam and plan: Yes Notes (Text): 03/17/18 15:47 Medical record note made by the resident after discussion with my direction and input after the patient was personally seen and examined by me. I have reviewed the chart and agree that the record accurately reflects by personal performance of the history, physical exam, data review, and medical decision-making, in the course for the patient. I have also personally directed the plan of care.
[2018-03-17] MEDS: Insulin Reg-LOW-Coverage SC SCH ×4 (09:52→22:06)
[2018-03-17] MEDS: Enoxaparin 40 mg Syringe SC SCH (09:53)
[2018-03-17] MEDS: Multivitamin With Minerals Tab PO SCH (09:54)
--- NOTE | 2018-03-17 16:40 | CP.PCM.PN ---
Subjective - Date & Time of Evaluation Date of Evaluation: 03/17/18 Time of Evaluation: 10:25 - Subjective Subjective: Afebrile, not in distress. Objective - Vital Signs/Intake and Output Vital Signs (last 24 hours): Temp Pulse Resp BP Pulse Ox 97.6 F 82 18 130/80 97 03/17/18 07:30 03/17/18 07:30 03/17/18 07:30 03/17/18 07:30 03/17/18 07:30 - Medications Medications: Current Medications Amlodipine Besylate (Norvasc) 10 mg PO DAILY [facility] Last Admin: 03/16/18 10:02 Dose: 10 mg Aspirin (Ecotrin) 81 mg PO DAILY [facility] Last Admin: 03/16/18 10:00 Dose: 81 mg Atorvastatin Calcium (Lipitor) 20 mg PO DIN [facility] Last Admin: 03/16/18 17:31 Dose: 20 mg Citalopram Hydrobromide (Celexa) 10 mg PO DAILY [facility] Last Admin: 03/16/18 10:00 Dose: 10 mg Enoxaparin Sodium (Lovenox) 40 mg SC DAILY [facility] PRN Reason: Protocol Last Admin: 03/16/18 10:02 Dose: 40 mg Folic Acid (Folic Acid) 1 mg PO DAILY [facility] Last Admin: 03/16/18 10:00 Dose: 1 mg Insulin Human Regular (Humulin R Low) 0 units SC ACHS [facility] PRN Reason: Protocol Last Admin: 03/16/18 22:04 Dose: Not Given Lisinopril (Zestril) 10 mg PO DAILY [facility] Last Admin: 03/16/18 10:03 Dose: 10 mg Metformin HCl (Glucophage) 500 mg PO BID [facility] Last Admin: 03/16/18 17:30 Dose: 500 mg Multivitamins/Minerals (Therapeutic-M Tab) 1 tab PO 0800 [facility] Last Admin: 03/16/18 10:03 Dose: 1 tab Thiamine HCl (Vitamin B1 Tab) 100 mg PO DAILY [facility] Last Admin: 03/16/18 10:03 Dose: 100 mg Zinc Sulfate (Zinc Sulfate 220 Mg Cap) 220 mg PO DAILY [facility] Last Admin: 03/16/18 10:04 Dose: 220 mg - Labs Labs: 03/14/18 06:30 03/15/18 08:44 PT 12.5 SECONDS (9.4-12.5) 12/09/17 10:00 INR 1.09 (0.93-1.08) H 12/09/17 10:00 APTT 28.3 Seconds (25.1-36.5) 11/30/17 05:30 - Constitutional Appears: Chronically Ill - Head Exam Head Exam: NORMAL INSPECTION - Neck Exam Neck Exam: absent: Meningismus - Respiratory Exam Respiratory Exam: Decreased Breath Sounds - Cardiovascular Exam Cardiovascular Exam: +S1, +S2 - GI/Abdominal Exam GI & Abdominal Exam: Soft. absent: Tenderness Assessment and Plan - Assessment and Plan (Free Text) Plan: Assessment S/P sepsis due to strep viridans and CoNS bacteremia from right gluteal and back cellulitis S/P multifocal HCAP on top of Influenza A infection S/P Sammie infection of sacral area as well peripheral vascular disease Plan patient had completed 42 days of antibiotics on this admission - continue to monitor clinically off antibiotics since he is at risk for hospital-acquiredl infections patient waiting for guardianship
[2018-03-18] MEDS: Insulin Reg-LOW-Coverage SC SCH ×4 (07:56→21:22)
[2018-03-18] MEDS: Enoxaparin 40 mg Syringe SC SCH (09:42)
[2018-03-18] MEDS: Multivitamin With Minerals Tab PO SCH (09:43)
--- NOTE | 2018-03-18 11:44 | CP.PCM.PN ---
<Ady Long - Last Filed: 03/18/18 11:42> Subjective - Date & Time of Evaluation Date of Evaluation: 03/18/18 Time of Evaluation: 11:42 - Subjective Subjective: Patient seen and examined at bedside. Doing well with no complaints at this time. Was encouraged to get out of bed but refused at this time. Tolerating diet and having regular bowel movements Objective - Vital Signs/Intake and Output Vital Signs (last 24 hours): Temp Pulse Resp BP Pulse Ox 98.6 F 86 16 143/89 98 03/18/18 06:00 03/18/18 09:44 03/18/18 06:00 03/18/18 09:44 03/18/18 06:00 Intake and Output: 03/18/18 03/18/18 06:59 18:59 Intake Total 740 Output Total 1 Balance 739 - Medications Medications: Current Medications Amlodipine Besylate (Norvasc) 10 mg PO DAILY [facility] Last Admin: 03/18/18 09:43 Dose: 10 mg Aspirin (Ecotrin) 81 mg PO DAILY [facility] Last Admin: 03/18/18 09:41 Dose: 81 mg Atorvastatin Calcium (Lipitor) 20 mg PO DIN [facility] Last Admin: 03/17/18 17:16 Dose: 20 mg Citalopram Hydrobromide (Celexa) 10 mg PO DAILY [facility] Last Admin: 03/18/18 09:41 Dose: 10 mg Enoxaparin Sodium (Lovenox) 40 mg SC DAILY [facility] PRN Reason: Protocol Last Admin: 03/18/18 09:42 Dose: 40 mg Folic Acid (Folic Acid) 1 mg PO DAILY [facility] Last Admin: 03/18/18 09:42 Dose: 1 mg Insulin Human Regular (Humulin R Low) [address] [facility] PRN Reason: Protocol Last Admin: 03/18/18 07:56 Dose: Not Given Lisinopril (Zestril) 10 mg PO DAILY [facility] Last Admin: 03/18/18 09:44 Dose: 10 mg Metformin HCl (Glucophage) 500 mg PO BID [facility] Last Admin: 03/18/18 09:42 Dose: 500 mg Multivitamins/Minerals (Therapeutic-M Tab) 1 tab PO 0800 [facility] Last Admin: 03/18/18 09:43 Dose: 1 tab Thiamine HCl (Vitamin B1 Tab) 100 mg PO DAILY [facility] Last Admin: 03/18/18 09:43 Dose: 100 mg Zinc Sulfate (Zinc Sulfate 220 Mg Cap) 220 mg PO DAILY [facility] Last Admin: 03/18/18 09:44 Dose: 220 mg - Labs Labs: 03/14/18 06:30 03/15/18 08:44 PT 12.5 SECONDS (9.4-12.5) 12/09/17 10:00 INR 1.09 (0.93-1.08) H 12/09/17 10:00 APTT 28.3 Seconds (25.1-36.5) 11/30/17 05:30 - Constitutional Appears: Well - Head Exam Head Exam: ATRAUMATIC, NORMAL INSPECTION, NORMOCEPHALIC - Eye Exam Eye Exam: EOMI, Normal appearance, PERRL Pupil Exam: NORMAL ACCOMODATION, PERRL - ENT Exam ENT Exam: Mucous Membranes Moist, Normal Exam - Neck Exam Neck Exam: Full ROM, Normal Inspection. absent: Lymphadenopathy - Respiratory Exam Respiratory Exam: Clear to Ausculation Bilateral, NORMAL BREATHING PATTERN - Cardiovascular Exam Cardiovascular Exam: REGULAR RHYTHM, +S1, +S2. absent: Murmur - GI/Abdominal Exam GI & Abdominal Exam: Soft, Normal Bowel Sounds. absent: Tenderness - Extremities Exam Extremities Exam: Full ROM, Normal Capillary Refill, Normal Inspection. absent : Joint Swelling, Pedal Edema - Back Exam Back Exam: NORMAL INSPECTION - Neurological Exam Neurological Exam: Alert, Awake, CN II-XII Intact, Normal Gait, Oriented x3 - Psychiatric Exam Psychiatric exam: Normal Affect, Normal Mood - Skin Skin Exam: Dry, Intact, Normal Color, Warm Assessment and Plan - Assessment and Plan (Free Text) Assessment: (1) Altered mental status Assessment & Plan: resolved- currently at baseline mentation which waxes and wanes Delirium precautions Patient mentation clinically unchanged, able to answer simple questions with simple answers, poor insight Likely secondary to depression vs. previous brain injury in form of metabolic encephalopathy vs residual stroke deficits PT reordered to evaluate for deconditioning, patient still refusing to participate Status: Resolved (2) Ischemic stroke Status: Acute (3) Coag negative Staphylococcus bacteremia Assessment & Plan: Last bld clx negative 12/04/17 with completion of 6 week course of antibiotics Monitor WBC, ESR, CRP weekly Echocardiogram unable to rule out vegetations, family is unavailable for consent for TAHIR Status: Resolved (4) Stage 1 decubitus ulcer Assessment & Plan: Patient refuses to get out of bed to chair Refusing activity with PT Skin break down noticed on lateral posterior lower back/hip Continue with Q2 turns Folic acid, Thiamine, Zinc daily Air mattress Wound care consult Off loading boots Status: Acute (5) Colonic mass Assessment & Plan: CT Abd/Pelvis showing colonic mass and hepatic lesions GI consulted and following patient Flex sig/colonoscopy refused by patient at this time Family unable to be contacted for consent Status: Chronic (6) Diabetes mellitus type 2 in nonobese Assessment & Plan: HgA1c is 7.4 Continue ISS low Metformin 500mg BID Carb consistent diet Status: Chronic (7) HTN (hypertension) Status: Acute (8) Affective disorder Assessment & Plan: Celexa 10mg PO Daily Status: Chronic (9) Prophylactic measure Assessment & Plan: No GI PPX indicated this time SCDs Dispo: Patient lacks decision making capacity and is unable to comprehend his diagnosis, medical treatment, potential benefit and risk associated with and without treatment. Guardianship paperwork being processed followed by potential placement. Court scheduled for 03/24 concerning guardianship Status: Acute <Deanna Schumacher - Last Filed: 03/18/18 15:50> Objective - Vital Signs/Intake and Output Vital Signs (last 24 hours): Temp Pulse Resp BP Pulse Ox 98.6 F 86 16 143/89 98 03/18/18 06:00 03/18/18 09:44 03/18/18 06:00 03/18/18 09:44 03/18/18 06:00 Intake and Output: 03/18/18 03/18/18 06:59 18:59 Intake Total 740 800 Output Total 1 Balance 739 800 - Medications Medications: Current Medications Amlodipine Besylate (Norvasc) 10 mg PO DAILY [facility] Last Admin: 03/18/18 09:43 Dose: 10 mg Aspirin (Ecotrin) 81 mg PO DAILY [facility] Last Admin: 03/18/18 09:41 Dose: 81 mg Atorvastatin Calcium (Lipitor) 20 mg PO DIN [facility] Last Admin: 03/17/18 17:16 Dose: 20 mg Citalopram Hydrobromide (Celexa) 10 mg PO DAILY [facility] Last Admin: 03/18/18 09:41 Dose: 10 mg Enoxaparin Sodium (Lovenox) 40 mg SC DAILY [facility] PRN Reason: Protocol Last Admin: 03/18/18 09:42 Dose: 40 mg Folic Acid (Folic Acid) 1 mg PO DAILY [facility] Last Admin: 03/18/18 09:42 Dose: 1 mg Insulin Human Regular (Humulin R Low) 0 units SC ACHS [facility] PRN Reason: Protocol Last Admin: 03/18/18 11:49 Dose: Not Given Lisinopril (Zestril) 10 mg PO DAILY [facility] Last Admin: 03/18/18 09:44 Dose: 10 mg Metformin HCl (Glucophage) 500 mg PO BID [facility] Last Admin: 03/18/18 09:42 Dose: 500 mg Multivitamins/Minerals (Therapeutic-M Tab) 1 tab PO 0800 [facility] Last Admin: 03/18/18 09:43 Dose: 1 tab Thiamine HCl (Vitamin B1 Tab) 100 mg PO DAILY [facility] Last Admin: 03/18/18 09:43 Dose: 100 mg Zinc Sulfate (Zinc Sulfate 220 Mg Cap) 220 mg PO DAILY [facility] Last Admin: 03/18/18 09:44 Dose: 220 mg - Labs Labs: 03/14/18 06:30 03/15/18 08:44 PT 12.5 SECONDS (9.4-12.5) 12/09/17 10:00 INR 1.09 (0.93-1.08) H 12/09/17 10:00 APTT 28.3 Seconds (25.1-36.5) 11/30/17 05:30 Attending/Attestation - Attestation I have personally seen and examined this patient.: Yes I have fully participated in the care of the patient.: Yes I have reviewed all pertinent clinical information, including history, physical exam and plan: Yes Notes (Text): 03/18/18 15:50 Medical record note made by the resident after discussion with my direction and input after the patient was personally seen and examined by me. I have reviewed the chart and agree that the record accurately reflects by personal performance of the history, physical exam, data review, and medical decision-making, in the course for the patient. I have also personally directed the plan of care. Patient is stable at base line.Mental status is at base line.he is awaiting for guardianship paper work for placement.He was encouraged to ambulate and also need frequent change of position to avoid decubitus ulcer. Prognosis is guarded
--- NOTE | 2018-03-18 12:12 | CP.PCM.PN ---
Subjective - Date & Time of Evaluation Date of Evaluation: 03/18/18 Time of Evaluation: 10:30 - Subjective Subjective: Comfortable in bed, no fevers. Objective - Vital Signs/Intake and Output Vital Signs (last 24 hours): Temp Pulse Resp BP Pulse Ox 98.6 F 86 16 143/89 98 03/18/18 06:00 03/18/18 09:44 03/18/18 06:00 03/18/18 09:44 03/18/18 06:00 Intake and Output: 03/18/18 03/18/18 06:59 18:59 Intake Total 740 Output Total 1 Balance 739 - Medications Medications: Current Medications Amlodipine Besylate (Norvasc) 10 mg PO DAILY [facility] Last Admin: 03/18/18 09:43 Dose: 10 mg Aspirin (Ecotrin) 81 mg PO DAILY [facility] Last Admin: 03/18/18 09:41 Dose: 81 mg Atorvastatin Calcium (Lipitor) 20 mg PO DIN [facility] Last Admin: 03/17/18 17:16 Dose: 20 mg Citalopram Hydrobromide (Celexa) 10 mg PO DAILY [facility] Last Admin: 03/18/18 09:41 Dose: 10 mg Enoxaparin Sodium (Lovenox) 40 mg SC DAILY [facility] PRN Reason: Protocol Last Admin: 03/18/18 09:42 Dose: 40 mg Folic Acid (Folic Acid) 1 mg PO DAILY [facility] Last Admin: 03/18/18 09:42 Dose: 1 mg Insulin Human Regular (Humulin R Low) 0 units SC [facility] PRN Reason: Protocol Last Admin: 03/18/18 11:49 Dose: Not Given Lisinopril (Zestril) 10 mg PO DAILY [facility] Last Admin: 03/18/18 09:44 Dose: 10 mg Metformin HCl (Glucophage) 500 mg PO BID [facility] Last Admin: 03/18/18 09:42 Dose: 500 mg Multivitamins/Minerals (Therapeutic-M Tab) 1 tab PO 0800 [facility] Last Admin: 03/18/18 09:43 Dose: 1 tab Thiamine HCl (Vitamin B1 Tab) 100 mg PO DAILY [facility] Last Admin: 03/18/18 09:43 Dose: 100 mg Zinc Sulfate (Zinc Sulfate 220 Mg Cap) 220 mg PO DAILY [facility] Last Admin: 03/18/18 09:44 Dose: 220 mg - Labs Labs: 03/14/18 06:30 05/29/18 08:44 PT 12.5 SECONDS (9.4-12.5) 12/09/17 10:00 INR 1.09 (0.93-1.08) H 12/09/17 10:00 APTT 28.3 Seconds (25.1-36.5) 11/30/17 05:30 - Constitutional Appears: Non-toxic, Chronically Ill - Head Exam Head Exam: NORMAL INSPECTION - Respiratory Exam Respiratory Exam: Decreased Breath Sounds - Cardiovascular Exam Cardiovascular Exam: +S1, +S2 - GI/Abdominal Exam GI & Abdominal Exam: Soft. absent: Tenderness Assessment and Plan - Assessment and Plan (Free Text) Plan: Assessment S/P sepsis due to strep viridans and CoNS bacteremia from right gluteal and back cellulitis S/P multifocal HCAP on top of Influenza A infection S/P Sammie infection of sacral area as well peripheral vascular disease Plan patient had completed 42 days of antibiotics on this admission - continue to monitor clinically off antibiotics since he is at risk for healthcare- associated infections patient waiting for guardianship
[2018-03-19] MEDS: Insulin Reg-LOW-Coverage SC SCH ×4 (07:45→22:03)
[2018-03-19] MEDS: Multivitamin With Minerals Tab PO SCH (09:54)
--- NOTE | 2018-03-19 11:14 | CP.PCM.PN ---
<Reese Aguero - Last Filed: 03/19/18 11:15> Subjective - Date & Time of Evaluation Date of Evaluation: 03/19/18 Time of Evaluation: 06:00 - Subjective Subjective: PAtient seen and evaluated bedside. No acute issues overnight. Patient says he is okay. recommended him to get out of bed to chair but refused. Patient denies chest pain, SOB, abdominal pain or any other complains at this time. Objective - Vital Signs/Intake and Output Vital Signs (last 24 hours): Temp Pulse Resp BP Pulse Ox 97.6 F 86 18 133/70 95 03/19/18 08:20 03/19/18 08:20 03/19/18 08:20 03/19/18 10:02 03/19/18 08:20 - Medications Medications: Current Medications Amlodipine Besylate (Norvasc) 10 mg PO DAILY [facility] Last Admin: 03/19/18 10:02 Dose: 10 mg Aspirin (Ecotrin) 81 mg PO DAILY [facility] Last Admin: 03/19/18 09:54 Dose: 81 mg Atorvastatin Calcium (Lipitor) 20 mg PO DIN [facility] Last Admin: 03/18/18 17:10 Dose: 20 mg Citalopram Hydrobromide (Celexa) 10 mg PO DAILY [facility] Last Admin: 03/19/18 09:54 Dose: 10 mg Folic Acid (Folic Acid) 1 mg PO DAILY [facility] Last Admin: 03/19/18 09:54 Dose: 1 mg Insulin Human Regular (Humulin R Low) 0 units SC ACHS [facility] PRN Reason: Protocol Last Admin: 03/19/18 07:45 Dose: Not Given Lisinopril (Zestril) 10 mg PO DAILY [facility] Last Admin: 03/19/18 09:54 Dose: 10 mg Metformin HCl (Glucophage) 500 mg PO BID [facility] Last Admin: 03/19/18 09:54 Dose: 500 mg Multivitamins/Minerals (Therapeutic-M Tab) 1 tab PO 0800 [facility] Last Admin: 03/19/18 09:54 Dose: 1 tab Thiamine HCl (Vitamin B1 Tab) 100 mg PO DAILY [facility] Last Admin: 03/19/18 09:54 Dose: 100 mg Zinc Sulfate (Zinc Sulfate 220 Mg Cap) 220 mg PO DAILY [facility] Last Admin: 03/19/18 09:54 Dose: 220 mg - Labs Labs: 03/14/18 06:30 03/15/18 08:44 PT 12.5 SECONDS (9.4-12.5) 12/09/17 10:00 INR 1.09 (0.93-1.08) H 12/09/17 10:00 APTT 28.3 Seconds (25.1-36.5) 11/30/17 05:30 - Constitutional Appears: Non-toxic, No Acute Distress - Head Exam Head Exam: ATRAUMATIC, NORMAL INSPECTION, NORMOCEPHALIC - Eye Exam Eye Exam: Normal appearance - ENT Exam ENT Exam: Mucous Membranes Moist - Respiratory Exam Respiratory Exam: Clear to Ausculation Bilateral, NORMAL BREATHING PATTERN - Cardiovascular Exam Cardiovascular Exam: REGULAR RHYTHM - GI/Abdominal Exam GI & Abdominal Exam: Soft. absent: Tenderness - Extremities Exam Extremities Exam: absent: Pedal Edema - Neurological Exam Neurological Exam: Alert, Awake, Oriented x3 Assessment and Plan - Assessment and Plan (Free Text) Plan: (1) Altered mental status -resolved- currently at baseline mentation which waxes and wanes -Delirium precautions -Patient mentation clinically unchanged, able to answer simple questions with simple answers, poor insight -Likely secondary to depression vs. previous brain injury in form of metabolic encephalopathy vs residual stroke deficits -PT : patient refusing to participate (2) Ischemic stroke Status: Acute (3) Coag negative Staphylococcus bacteremia Assessment & Plan: -Last bld clx negative 12/04/17 with completion of 6 week course of antibiotics -Monitor WBC, ESR, CRP weekly -Echocardiogram unable to rule out vegetations, family is unavailable for consent for TAHIR Status: Resolved (4) Stage 1 decubitus ulcer Assessment & Plan: -Patient refuses to get out of bed to chair -Refusing activity with PT -Skin break down noticed on lateral posterior lower back/hip -Continue with Q2 turns -Folic acid, Thiamine, Zinc daily -Air mattress -Wound care consult -Off loading boots Status: Acute (5) Colonic mass Assessment & Plan: -CT Abd/Pelvis showing colonic mass and hepatic lesions -GI consulted -Flex sig/colonoscopy refused by patient at this time -Family unable to be contacted for consent Status: Chronic (6) Diabetes mellitus type 2 in nonobese Assessment & Plan: -HgA1c is 7.4 -Continue ISS low -Metformin 500mg BID -Carb consistent diet Status: Chronic (7) HTN (hypertension) Status: Acute (8) Affective disorder Assessment & Plan: -Celexa 10mg PO Daily Status: Chronic (9) Prophylactic measure Assessment & Plan: -No GI PPX indicated this time -SCDs Dispo: Patient lacks decision making capacity and is unable to comprehend his diagnosis, medical treatment, potential benefit and risk associated with and without treatment. Guardianship paperwork being processed followed by potential placement. Court scheduled for 03/24 concerning guardianship <Sixto Galo - Last Filed: 03/19/18 11:29> Objective - Vital Signs/Intake and Output Vital Signs (last 24 hours): Temp Pulse Resp BP Pulse Ox 97.6 F 86 18 133/70 95 03/19/18 08:20 03/19/18 08:20 03/19/18 08:20 03/19/18 10:02 03/19/18 08:20 - Medications Medications: Current Medications Amlodipine Besylate (Norvasc) 10 mg PO DAILY [facility] Last Admin: 03/19/18 10:02 Dose: 10 mg Aspirin (Ecotrin) 81 mg PO DAILY [facility] Last Admin: 03/19/18 09:54 Dose: 81 mg Atorvastatin Calcium (Lipitor) 20 mg PO DIN [facility] Last Admin: 03/18/18 17:10 Dose: 20 mg Citalopram Hydrobromide (Celexa) 10 mg PO DAILY [facility] Last Admin: 03/19/18 09:54 Dose: 10 mg Folic Acid (Folic Acid) 1 mg PO DAILY [facility] Last Admin: 03/19/18 09:54 Dose: 1 mg Insulin Human Regular (Humulin R Low) 0 units SC [facility] PRN Reason: Protocol Last Admin: 03/19/18 07:45 Dose: Not Given Lisinopril (Zestril) 10 mg PO DAILY [facility] Last Admin: 03/19/18 09:54 Dose: 10 mg Metformin HCl (Glucophage) 500 mg PO BID [facility] Last Admin: 03/19/18 09:54 Dose: 500 mg Multivitamins/Minerals (Therapeutic-M Tab) 1 tab PO 0800 [facility] Last Admin: 03/19/18 09:54 Dose: 1 tab Thiamine HCl (Vitamin B1 Tab) 100 mg PO DAILY [facility] Last Admin: 03/19/18 09:54 Dose: 100 mg Zinc Sulfate (Zinc Sulfate 220 Mg Cap) 220 mg PO DAILY [facility] Last Admin: 03/19/18 09:54 Dose: 220 mg - Labs Labs: 03/14/18 06:30 03/15/18 08:44 PT 12.5 SECONDS (9.4-12.5) 12/09/17 10:00 INR 1.09 (0.93-1.08) H 12/09/17 10:00 APTT 28.3 Seconds (25.1-36.5) 11/30/17 05:30 Attending/Attestation - Attestation I have personally seen and examined this patient.: Yes I have fully participated in the care of the patient.: Yes I have reviewed all pertinent clinical information, including history, physical exam and plan: Yes Notes (Text): 03/19/18 11:28 Patient appears comfortable in bed. No new complaints. He is encouraged to get OOB to chair and work with PT. He is awaiting court date for guardianship process for placement. Sixto Galo MD Hospitalist.
--- NOTE | 2018-03-19 14:33 | PN ---
DATE: 03/19/2018 SUBJECTIVE: The patient is in bed in no acute distress, nontoxic. PHYSICAL EXAMINATION: VITAL SIGNS: Temperature is 97, blood pressure is 120/80, respiratory rate of 18. HEENT: Unremarkable. NECK: Supple. LUNGS: Have decreased breath sounds. HEART: Normal S1, S2. ABDOMEN: Soft, nontender. LABORATORY DATA: Reveals a white count of 8.9, hemoglobin of 11, platelets of 383. Creatinine 0.5. Vancomycin trough is 10. Serology is noted. Review of orders reveals the patient is off of antibiotics. ASSESSMENT AND PLAN: This is a 57-year-old male with status post sepsis due to Streptococcus viridans and coag-negative staphylococcal bacteremia, right gluteal and back cellulitis, status post multifocal healthcare-associated pneumonia on top of influenza and Sammie. Currently the patient is status post completion of antibiotics 42 days, off of antibiotics, afebrile and risk for developing nosocomial infections. Daniel Torres MD
[2018-03-20] MEDS: Insulin Reg-LOW-Coverage SC SCH ×4 (07:49→21:43)
[2018-03-20] MEDS: Multivitamin With Minerals Tab PO SCH (10:34)
--- NOTE | 2018-03-20 12:38 | CP.PCM.PN ---
<EliasColton - Last Filed: 03/20/18 12:50> Subjective - Date & Time of Evaluation Date of Evaluation: 03/20/18 Time of Evaluation: 12:15 - Subjective Subjective: Medicine progress note: Dr. Galo Patient seen and examined at bedside. No acute events overnight, no new complaints. Objective - Vital Signs/Intake and Output Vital Signs (last 24 hours): Temp Pulse Resp BP Pulse Ox 97.9 F 70 20 120/80 98 03/20/18 07:37 03/20/18 10:33 03/20/18 07:37 03/20/18 10:33 03/20/18 07:37 Intake and Output: 03/20/18 03/20/18 06:59 18:59 Intake Total 120 Balance 120 - Medications Medications: Current Medications Amlodipine Besylate (Norvasc) 10 mg PO DAILY [facility] Last Admin: 03/20/18 10:33 Dose: 10 mg Aspirin (Ecotrin) 81 mg PO DAILY [facility] Last Admin: 03/20/18 10:33 Dose: 81 mg Atorvastatin Calcium (Lipitor) 20 mg PO DIN [facility] Last Admin: 03/19/18 17:26 Dose: 20 mg Citalopram Hydrobromide (Celexa) 10 mg PO DAILY [facility] Last Admin: 03/20/18 10:33 Dose: 10 mg Folic Acid (Folic Acid) 1 mg PO DAILY [facility] Last Admin: 03/20/18 10:33 Dose: 1 mg Insulin Human Regular (Humulin R Low) 0 units SC [facility] PRN Reason: Protocol Last Admin: 03/20/18 11:49 Dose: 1 units Lisinopril (Zestril) 10 mg PO DAILY [facility] Last Admin: 03/20/18 10:33 Dose: 10 mg Metformin HCl (Glucophage) 500 mg PO BID [facility] Last Admin: 03/20/18 10:34 Dose: 500 mg Multivitamins/Minerals (Therapeutic-M Tab) 1 tab PO 0800 [facility] Last Admin: 03/20/18 10:34 Dose: 1 tab Thiamine HCl (Vitamin B1 Tab) 100 mg PO DAILY [facility] Last Admin: 03/20/18 10:33 Dose: 100 mg Zinc Sulfate (Zinc Sulfate 220 Mg Cap) 220 mg PO DAILY [facility] Last Admin: 03/20/18 10:34 Dose: 220 mg - Labs Labs: 03/14/18 06:30 03/15/18 08:44 PT 12.5 SECONDS (9.4-12.5) 12/09/17 10:00 INR 1.09 (0.93-1.08) H 12/09/17 10:00 APTT 28.3 Seconds (25.1-36.5) 11/30/17 05:30 - Constitutional Appears: Well - Head Exam Head Exam: ATRAUMATIC, NORMAL INSPECTION, NORMOCEPHALIC - Eye Exam Eye Exam: EOMI, Normal appearance, PERRL Pupil Exam: NORMAL ACCOMODATION, PERRL - ENT Exam ENT Exam: Mucous Membranes Moist, Normal Exam - Neck Exam Neck Exam: Full ROM, Normal Inspection. absent: Lymphadenopathy - Respiratory Exam Respiratory Exam: Clear to Ausculation Bilateral, NORMAL BREATHING PATTERN - Cardiovascular Exam Cardiovascular Exam: REGULAR RHYTHM, +S1, +S2. absent: Murmur - GI/Abdominal Exam GI & Abdominal Exam: Soft, Normal Bowel Sounds. absent: Tenderness - Extremities Exam Extremities Exam: Full ROM, Normal Capillary Refill, Normal Inspection. absent : Joint Swelling, Pedal Edema - Back Exam Back Exam: NORMAL INSPECTION - Neurological Exam Neurological Exam: Alert, Awake, CN II-XII Intact, Normal Gait, Oriented x3 - Psychiatric Exam Psychiatric exam: Normal Affect, Normal Mood - Skin Skin Exam: Dry, Intact, Normal Color, Warm Assessment and Plan - Assessment and Plan (Free Text) Assessment: Assessment and Plan: Altered mental status 2/2 Ischemic stroke residual deficits VS Metabolic Encephalopathy - Resolved - Currently at baseline mentation which waxes and wanes: Patient mentation clinically unchanged, able to answer simple questions - Delirium precautions; PT - patient refusing to participate - ASA/Lipitor Coag negative Staphylococcus bacteremia - Last bld clx negative 12/04/17 with completion of 6 week course of antibiotics - Monitor WBC, ESR, CRP weekly - Echocardiogram unable to rule out vegetations, family is unavailable for consent for TAHIR Stage 1 decubitus ulcer - Patient refuses to get out of bed to chair, Refuses PT - Skin break down noticed on lateral posterior lower back/hip - Continue with Q2 turns, Air Mattress, Offloading boots, Wound care consult - Folic acid, Thiamine, Zinc daily Colonic mass - CT Abd/Pelvis showing colonic mass and hepatic lesions - GI consulted: follow recs - Flex sig/colonoscopy refused by patient at this time Family unable to be contacted for consent Diabetes mellitus type 2 in nonobese - HgA1c is 7.4 - Continue ISS low - Metformin 500mg BID - Carb consistent diet HTN - Lisinopril 10 daily Affective disorder - Celexa 10mg PO Daily Prophylaxis - No GI PPX indicated this time - SCDs Dispo: Patient lacks decision making capacity and is unable to comprehend his diagnosis, medical treatment, potential benefit and risk associated with and without treatment. Guardianship paperwork being processed followed by potential placement. Court scheduled for 03/24 concerning guardianship <Sixto Galo A - Last Filed: 03/20/18 13:09> Objective - Vital Signs/Intake and Output Vital Signs (last 24 hours): Temp Pulse Resp BP Pulse Ox 97.9 F 70 20 120/80 98 03/20/18 07:37 03/20/18 10:33 03/20/18 07:37 03/20/18 10:33 03/20/18 07:37 Intake and Output: 03/20/18 03/20/18 06:59 18:59 Intake Total 120 Balance 120 - Medications Medications: Current Medications Amlodipine Besylate (Norvasc) 10 mg PO DAILY [facility] Last Admin: 03/20/18 10:33 Dose: 10 mg Aspirin (Ecotrin) 81 mg PO DAILY [facility] Last Admin: 03/20/18 10:33 Dose: 81 mg Atorvastatin Calcium (Lipitor) 20 mg PO DIN [facility] Last Admin: 03/19/18 17:26 Dose: 20 mg Citalopram Hydrobromide (Celexa) 10 mg PO DAILY [facility] Last Admin: 03/20/18 10:33 Dose: 10 mg Folic Acid (Folic Acid) 1 mg PO DAILY [facility] Last Admin: 03/20/18 10:33 Dose: 1 mg Insulin Human Regular (Humulin R Low) 0 units SC [facility] PRN Reason: Protocol Last Admin: 03/20/18 11:49 Dose: 1 units Lisinopril (Zestril) 10 mg PO DAILY [facility] Last Admin: 03/20/18 10:33 Dose: 10 mg Metformin HCl (Glucophage) 500 mg PO BID [facility] Last Admin: 03/20/18 10:34 Dose: 500 mg Multivitamins/Minerals (Therapeutic-M Tab) 1 tab PO 0800 [facility] Last Admin: 03/20/18 10:34 Dose: 1 tab Thiamine HCl (Vitamin B1 Tab) 100 mg PO DAILY [facility] Last Admin: 03/20/18 10:33 Dose: 100 mg Zinc Sulfate (Zinc Sulfate 220 Mg Cap) 220 mg PO DAILY [facility] Last Admin: 03/20/18 10:34 Dose: 220 mg - Labs Labs: 03/14/18 06:30 03/15/18 08:44 PT 12.5 SECONDS (9.4-12.5) 12/09/17 10:00 INR 1.09 (0.93-1.08) H 12/09/17 10:00 APTT 28.3 Seconds (25.1-36.5) 11/30/17 05:30 Attending/Attestation - Attestation I have personally seen and examined this patient.: Yes I have fully participated in the care of the patient.: Yes I have reviewed all pertinent clinical information, including history, physical exam and plan: Yes Notes (Text): 03/20/18 13:08 Patient seen and examined at bedside with resident. Appears comfortable without any new complaints. He is encouraged to get OOB to chair and work with PT but continues to refuse. He is awaiting court date for guardianship process for placement. Sixto Galo MD Hospitalist.
--- NOTE | 2018-03-20 14:38 | PN ---
DATE: 03/20/2018 SUBJECTIVE: The patient is seen earlier this morning. No fevers, no chills, no nausea. OBJECTIVE: VITAL SIGNS: On exam, temperature is 98, blood pressure is 120/70, respiratory rate of 16. HEENT: Examination is unremarkable. NECK: Supple. LUNGS: Have decreased breath sounds. HEART: Normal S1, S2. ABDOMEN: Soft, nontender. DATA: Laboratory examination reveals the patient's white count of 8.9, hemoglobin of 11, platelets of 389. Chemistries reveals the patient has a BUN of 13, creatinine of 0.5. ASSESSMENT AND PLAN: This is a 57-year-old male who was seen earlier today, who is status post sepsis and did have strep viridans bacteremia and coag-negative bacteremia secondary to right gluteal and back cellulitis and also had multifocal healthcare-associated pneumonia on top of influenza A and Sammie infection, currently off of antibiotics. The patient has completed 42 days of antibiotics, currently off of antibiotics. The patient is at risk for developing nosocomial infections, although his mental status still waxes and wanes. Daniel Torres MD
[2018-03-21 06:32] LABS: HEMOGLOBIN 12.3 g/dL (14.0-18.0); MEAN CELL VOLUME 83.6 fl (80.0-105.0); MEAN CORPUSCULAR HEMOGLOBIN 27.7 pg (25.0-35.0); MEAN CORPUSCULAR HGB CONC 33.2 g/dl (31.0-37.0); MEAN PLATELET VOLUME 9.3 fl (7.0-11.0); RBC 4.44 10^6/uL (3.5-6.1); RED CELL DISTRIBUTION WIDTH 13.6 % (11.5-14.5); WHITE BLOOD COUNT 11.1 10^3/ul (4.5-11.0)
--- NOTE | 2018-03-21 08:04 | CP.PCM.PN ---
<Rocael Bowie - Last Filed: 03/21/18 12:47> Subjective - Date & Time of Evaluation Date of Evaluation: 03/21/18 Time of Evaluation: 07:15 - Subjective Subjective: Patient seen and examined this AM. Overnight nursing notes indicate episodes of vomiting. Patient unable to recall emesis episodes. Denies nausea, vomiting, fever, chest pain, shortness of breath, abdominal pain, diarrhea. Objective - Vital Signs/Intake and Output Vital Signs (last 24 hours): Temp Pulse Resp BP Pulse Ox 98 F 86 20 113/72 96 03/21/18 07:43 03/21/18 07:43 03/21/18 07:43 03/21/18 07:43 03/21/18 07:43 Intake and Output: 03/21/18 03/21/18 06:59 18:59 Intake Total 240 Balance 240 - Medications Medications: Current Medications Amlodipine Besylate (Norvasc) 10 mg PO DAILY [facility] Last Admin: 03/20/18 10:33 Dose: 10 mg Aspirin (Ecotrin) 81 mg PO DAILY [facility] Last Admin: 03/20/18 10:33 Dose: 81 mg Atorvastatin Calcium (Lipitor) 20 mg PO DIN [facility] Last Admin: 03/20/18 17:19 Dose: 20 mg Citalopram Hydrobromide (Celexa) 10 mg PO DAILY [facility] Last Admin: 03/20/18 10:33 Dose: 10 mg Folic Acid (Folic Acid) 1 mg PO DAILY [facility] Last Admin: 03/20/18 10:33 Dose: 1 mg Insulin Human Regular (Humulin R Low) 0 units SC [facility] PRN Reason: Protocol Last Admin: 03/20/18 21:43 Dose: Not Given Lisinopril (Zestril) 10 mg PO DAILY [facility] Last Admin: 03/20/18 10:33 Dose: 10 mg Metformin HCl (Glucophage) 500 mg PO BID [facility] Last Admin: 03/20/18 17:19 Dose: 500 mg Multivitamins/Minerals (Therapeutic-M Tab) 1 tab PO 0800 [facility] Last Admin: 03/20/18 10:34 Dose: 1 tab Thiamine HCl (Vitamin B1 Tab) 100 mg PO DAILY [facility] Last Admin: 03/20/18 10:33 Dose: 100 mg Zinc Sulfate (Zinc Sulfate 220 Mg Cap) 220 mg PO DAILY [facility] Last Admin: 03/20/18 10:34 Dose: 220 mg - Labs Labs: 03/21/18 05:30 03/15/18 08:44 PT 12.5 SECONDS (9.4-12.5) 12/09/17 10:00 INR 1.09 (0.93-1.08) H 12/09/17 10:00 APTT 28.3 Seconds (25.1-36.5) 11/30/17 05:30 - Head Exam Head Exam: ATRAUMATIC, NORMAL INSPECTION, NORMOCEPHALIC - Eye Exam Eye Exam: EOMI, PERRL - ENT Exam ENT Exam: Mucous Membranes Moist - Respiratory Exam Respiratory Exam: Clear to Ausculation Bilateral, NORMAL BREATHING PATTERN - Cardiovascular Exam Cardiovascular Exam: REGULAR RHYTHM, +S1, +S2 - GI/Abdominal Exam GI & Abdominal Exam: Soft, Normal Bowel Sounds - Extremities Exam Extremities Exam: Normal Capillary Refill. absent: Pedal Edema, Tenderness - Neurological Exam Neurological Exam: Alert, Awake - Psychiatric Exam Psychiatric exam: Flat Affect - Skin Skin Exam: Dry, Warm Assessment and Plan - Assessment and Plan (Free Text) Assessment: 57yo male unknown PMHx admitted for AMS, right hip cellulitis, multifocal pneumonia, influenza A, strep viridians bacteremia with findings of stroke on MRI - acute vs. 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 Patient was treated for bacteremia with IV abx. Patient continues to refuse testing at this time. Guardianship establishment pending. Plan: Altered mental status 2/2 Ischemic stroke residual deficits VS Metabolic Encephalopathy - Resolved - Currently at baseline mentation which waxes and wanes: Patient mentation clinically unchanged, able to answer simple questions - Delirium precautions; PT - patient refusing to participate - ASA/Lipitor Coag negative Staphylococcus bacteremia - Last bld clx negative 12/04/17 with completion of 6 week course of antibiotics - Monitor WBC, ESR, CRP weekly - Echocardiogram unable to rule out vegetations, family is unavailable for consent for TAHIR Stage 1 decubitus ulcer - Patient refuses to get out of bed to chair - Refusing PT - Skin break down noticed on lateral posterior lower back/hip - Continue with Q2 turns, Air Mattress, Offloading boots, Wound care consulted - Folic acid, Thiamine, Zinc daily Colonic mass - CT Abd/Pelvis showing colonic mass and hepatic lesions - GI consulted: follow recs - Flex sig/colonoscopy refused by patient at this time - Family unable to be contacted for consent Diabetes mellitus type 2 in nonobese - HgA1c is 7.4 - Continue ISS low - Metformin 500mg BID - Carb consistent diet HTN - Lisinopril 10 daily Affective disorder - Celexa 10mg PO Daily Prophylaxis - No GI PPX indicated this time - SCDs Dispo: Patient lacks decision making capacity and is unable to comprehend his diagnosis, medical treatment, potential benefit and risk associated with and without treatment. Guardianship paperwork being processed followed by potential placement. Court scheduled for 03/24 concerning guardianship Case and plan discussed with attending <Sixto Galo - Last Filed: 03/21/18 13:30> Objective - Vital Signs/Intake and Output Vital Signs (last 24 hours): Temp Pulse Resp BP Pulse Ox 98 F 86 20 113/72 96 03/21/18 07:43 03/21/18 09:20 03/21/18 07:43 03/21/18 09:20 03/21/18 07:43 Intake and Output: 03/21/18 03/21/18 06:59 18:59 Intake Total 240 Balance 240 - Medications Medications: Current Medications Amlodipine Besylate (Norvasc) 10 mg PO DAILY [facility] Last Admin: 03/21/18 09:20 Dose: 10 mg Aspirin (Ecotrin) 81 mg PO DAILY [facility] Last Admin: 03/21/18 09:20 Dose: 81 mg Atorvastatin Calcium (Lipitor) 20 mg PO DIN [facility] Last Admin: 03/20/18 17:19 Dose: 20 mg Citalopram Hydrobromide (Celexa) 10 mg PO DAILY [facility] Last Admin: 03/21/18 09:20 Dose: 10 mg Folic Acid (Folic Acid) 1 mg PO DAILY [facility] Last Admin: 03/21/18 09:20 Dose: 1 mg Insulin Human Regular (Humulin R Low) 0 units SC [facility] PRN Reason: Protocol Last Admin: 03/21/18 11:24 Dose: Not Given Lisinopril (Zestril) 10 mg PO DAILY [facility] Last Admin: 03/21/18 09:20 Dose: 10 mg Metformin HCl (Glucophage) 500 mg PO BID [facility] Last Admin: 03/21/18 09:20 Dose: 500 mg Multivitamins/Minerals (Therapeutic-M Tab) 1 tab PO 0800 [facility] Last Admin: 03/21/18 09:19 Dose: 1 tab Thiamine HCl (Vitamin B1 Tab) 100 mg PO DAILY [facility] Last Admin: 03/21/18 09:20 Dose: 100 mg Zinc Sulfate (Zinc Sulfate 220 Mg Cap) 220 mg PO DAILY [facility] Last Admin: 03/21/18 09:20 Dose: 220 mg - Labs Labs: 03/21/18 05:30 03/21/18 07:45 PT 12.5 SECONDS (9.4-12.5) 12/09/17 10:00 INR 1.09 (0.93-1.08) H 12/09/17 10:00 APTT 28.3 Seconds (25.1-36.5) 11/30/17 05:30 Attending/Attestation - Attestation I have personally seen and examined this patient.: Yes I have fully participated in the care of the patient.: Yes I have reviewed all pertinent clinical information, including history, physical exam and plan: Yes Notes (Text): 03/21/18 13:29 Patient seen and examined at bedside with resident. Appears comfortable without any new complaints today. He is awaiting court date for guardianship process for placement. Sixto Galo MD Hospitalist.
[2018-03-21] MEDS: Insulin Reg-LOW-Coverage SC SCH ×4 (08:30→22:39)
[2018-03-21 08:34] LABS: ALB/GLOB RATIO 1.4 (1.1-1.8); ALBUMIN 4.2 g/dL (3.0-4.8); ALT/SGPT 27 U/L (7-56); AST/SGOT 25 U/L (17-59); BLOOD UREA NITROGEN 21 mg/dL (7-21); CALCIUM 9.7 mg/dL (8.4-10.5); GFR NON-AFRICAN AMERICAN > 60
[2018-03-21] MEDS: Multivitamin With Minerals Tab PO SCH (09:19)
--- NOTE | 2018-03-21 12:44 | CP.PCM.PN ---
Subjective - Date & Time of Evaluation Date of Evaluation: 03/21/18 Time of Evaluation: 11:05 - Subjective Subjective: Apparently had episodes of vomiting yesterday but none this morning, no fevers. Objective - Vital Signs/Intake and Output Vital Signs (last 24 hours): Temp Pulse Resp BP Pulse Ox 98 F 86 20 113/72 96 03/21/18 07:43 03/21/18 09:20 03/21/18 07:43 03/21/18 09:20 03/21/18 07:43 Intake and Output: 03/21/18 03/21/18 06:59 18:59 Intake Total 240 Balance 240 - Medications Medications: Current Medications Amlodipine Besylate (Norvasc) 10 mg PO DAILY [facility] Last Admin: 03/21/18 09:20 Dose: 10 mg Aspirin (Ecotrin) 81 mg PO DAILY [facility] Last Admin: 03/21/18 09:20 Dose: 81 mg Atorvastatin Calcium (Lipitor) 20 mg PO DIN [facility] Last Admin: 03/20/18 17:19 Dose: 20 mg Citalopram Hydrobromide (Celexa) 10 mg PO DAILY [facility] Last Admin: 03/21/18 09:20 Dose: 10 mg Folic Acid (Folic Acid) 1 mg PO DAILY [facility] Last Admin: 03/21/18 09:20 Dose: 1 mg Insulin Human Regular (Humulin R Low) 0 units SC [facility] PRN Reason: Protocol Last Admin: 03/21/18 08:30 Dose: Not Given Lisinopril (Zestril) 10 mg PO DAILY [facility] Last Admin: 03/21/18 09:20 Dose: 10 mg Metformin HCl (Glucophage) 500 mg PO BID [facility] Last Admin: 03/21/18 09:20 Dose: 500 mg Multivitamins/Minerals (Therapeutic-M Tab) 1 tab PO 0800 [facility] Last Admin: 03/21/18 09:19 Dose: 1 tab Thiamine HCl (Vitamin B1 Tab) 100 mg PO DAILY [facility] Last Admin: 03/21/18 09:20 Dose: 100 mg Zinc Sulfate (Zinc Sulfate 220 Mg Cap) 220 mg PO DAILY [facility] Last Admin: 03/21/18 09:20 Dose: 220 mg - Labs Labs: 03/21/18 05:30 03/21/18 07:45 PT 12.5 SECONDS (9.4-12.5) 12/09/17 10:00 INR 1.09 (0.93-1.08) H 12/09/17 10:00 APTT 28.3 Seconds (25.1-36.5) 11/30/17 05:30 - Constitutional Appears: Non-toxic, Chronically Ill - Head Exam Head Exam: NORMAL INSPECTION - Respiratory Exam Respiratory Exam: Decreased Breath Sounds - Cardiovascular Exam Cardiovascular Exam: +S1, +S2 - GI/Abdominal Exam GI & Abdominal Exam: Soft. absent: Tenderness Assessment and Plan - Assessment and Plan (Free Text) Plan: Assessment S/P sepsis due to strep viridans and CoNS bacteremia from right gluteal and back cellulitis S/P multifocal HCAP on top of Influenza A infection S/P Sammie infection of sacral area as well peripheral vascular disease Plan patient had completed 42 days of antibiotics on this admission - continue to monitor clinically off antibiotics since he is at risk for nosocomial infections patient is still waiting for guardianship
--- NOTE | 2018-03-22 06:25 | CP.PCM.PN ---
<Rocael Bowie - Last Filed: 03/22/18 13:42> Subjective - Date & Time of Evaluation Date of Evaluation: 03/22/18 Time of Evaluation: 07:10 - Subjective Subjective: Patient seen and evaluated this AM. No acute events reported overnight. Patient resting comfortably in bed without complaints. No fevers, emesis, diarrhea. Objective - Vital Signs/Intake and Output Vital Signs (last 24 hours): Temp Pulse Resp BP Pulse Ox 98.3 F 64 20 106/70 95 03/21/18 17:30 03/21/18 17:30 03/21/18 17:30 03/21/18 17:30 03/21/18 17:30 Intake and Output: 03/21/18 03/22/18 18:59 06:59 Intake Total 925 1020 Balance 925 1020 - Medications Medications: Current Medications Amlodipine Besylate (Norvasc) 10 mg PO DAILY [facility] Last Admin: 03/21/18 09:20 Dose: 10 mg Aspirin (Ecotrin) 81 mg PO DAILY [facility] Last Admin: 03/21/18 09:20 Dose: 81 mg Atorvastatin Calcium (Lipitor) 20 mg PO DIN [facility] Last Admin: 03/21/18 16:57 Dose: 20 mg Citalopram Hydrobromide (Celexa) 10 mg PO DAILY [facility] Last Admin: 03/21/18 09:20 Dose: 10 mg Folic Acid (Folic Acid) 1 mg PO DAILY [facility] Last Admin: 03/21/18 09:20 Dose: 1 mg Insulin Human Regular (Humulin R Low) 0 units SC [facility] PRN Reason: Protocol Last Admin: 03/21/18 22:39 Dose: Not Given Lisinopril (Zestril) 10 mg PO DAILY [facility] Last Admin: 03/21/18 09:20 Dose: 10 mg Metformin HCl (Glucophage) 500 mg PO BID [facility] Last Admin: 03/21/18 17:01 Dose: 500 mg Multivitamins/Minerals (Therapeutic-M Tab) 1 tab PO 0800 [facility] Last Admin: 03/21/18 09:19 Dose: 1 tab Thiamine HCl (Vitamin B1 Tab) 100 mg PO DAILY [facility] Last Admin: 03/21/18 09:20 Dose: 100 mg Zinc Sulfate (Zinc Sulfate 220 Mg Cap) 220 mg PO DAILY [facility] Last Admin: 03/21/18 09:20 Dose: 220 mg - Labs Labs: 03/21/18 05:30 03/21/18 07:45 PT 12.5 SECONDS (9.4-12.5) 12/09/17 10:00 INR 1.09 (0.93-1.08) H 12/09/17 10:00 APTT 28.3 Seconds (25.1-36.5) 11/30/17 05:30 - Constitutional Appears: No Acute Distress - Head Exam Head Exam: ATRAUMATIC, NORMAL INSPECTION, NORMOCEPHALIC - Eye Exam Eye Exam: EOMI, PERRL - Respiratory Exam Respiratory Exam: Clear to Ausculation Bilateral, NORMAL BREATHING PATTERN - Cardiovascular Exam Cardiovascular Exam: REGULAR RHYTHM, +S1, +S2 - GI/Abdominal Exam GI & Abdominal Exam: Soft, Normal Bowel Sounds. absent: Guarding, Rigid, Tenderness - Extremities Exam Extremities Exam: Normal Capillary Refill. absent: Pedal Edema - Neurological Exam Neurological Exam: Alert, Awake - Psychiatric Exam Psychiatric exam: Flat Affect - Skin Skin Exam: Dry, Warm Assessment and Plan - Assessment and Plan (Free Text) Assessment: 57yo male unknown PMHx admitted for AMS, right hip cellulitis, multifocal pneumonia, influenza A, strep viridians bacteremia with findings of stroke on MRI - acute vs. 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 Patient was treated for bacteremia with IV abx. Patient continues to refuse testing at this time. Guardianship establishment pending. Plan: Altered mental status - Etiology: likely secondary to ischemic stroke residual deficits vs Metabolic Encephalopathy - Currently at baseline mentation which waxes and wanes - Patient mentation clinically unchanged, able to answer simple questions - Delirium precautions; PT - patient refusing to participate - ASA/Lipitor Coag negative Staphylococcus bacteremia - Last bld clx negative 12/04/17 with completion of 6 week course of antibiotics - Monitor WBC, ESR, CRP weekly - Echocardiogram unable to rule out vegetations, family is unavailable for consent for TAHIR Stage 1 decubitus ulcer-improving - Patient refuses to get out of bed to chair - Refusing PT - Mild skin break down noticed on lateral posterior lower back/hip - Continue with Q2 turns, Wound care consulted - Folic acid, Thiamine, Zinc daily Colonic mass - CT Abd/Pelvis showing colonic mass and hepatic lesions - GI consulted: follow recs - Flex sig/colonoscopy refused by patient at this time - Family unable to be contacted for consent Diabetes mellitus type 2 in nonobese - HgA1c is 7.4 - Continue ISS low - Metformin 500mg BID - Carb consistent diet HTN - Lisinopril 10 daily Affective disorder - Celexa 10mg PO Daily Prophylaxis - No GI PPX indicated this time - SCDs Dispo: Patient lacks decision making capacity and is unable to comprehend his diagnosis, medical treatment, potential benefit and risk associated with and without treatment. Guardianship paperwork being processed followed by potential placement. Court scheduled for 03/24 concerning guardianship Case and plan discussed with attending <Sixto Galo - Last Filed: 03/22/18 15:17> Objective - Vital Signs/Intake and Output Vital Signs (last 24 hours): Temp Pulse Resp BP Pulse Ox 97.8 F 85 16 115/79 96 03/22/18 07:57 03/22/18 09:00 03/22/18 07:57 03/22/18 09:00 03/22/18 07:57 Intake and Output: 03/22/18 03/22/18 06:59 18:59 Intake Total 1020 Balance 1020 - Medications Medications: Current Medications Amlodipine Besylate (Norvasc) 10 mg PO DAILY [facility] Last Admin: 03/22/18 09:00 Dose: 10 mg Aspirin (Ecotrin) 81 mg PO DAILY [facility] Last Admin: 03/22/18 09:00 Dose: 81 mg Atorvastatin Calcium (Lipitor) 20 mg PO DIN [facility] Last Admin: 03/21/18 16:57 Dose: 20 mg Citalopram Hydrobromide (Celexa) 10 mg PO DAILY [facility] Last Admin: 03/22/18 09:00 Dose: 10 mg Folic Acid (Folic Acid) 1 mg PO DAILY [facility] Last Admin: 03/22/18 09:00 Dose: 1 mg Insulin Human Regular (Humulin R Low) 0 units SC [facility] PRN Reason: Protocol Last Admin: 03/22/18 13:03 Dose: Not Given Lisinopril (Zestril) 10 mg PO DAILY [facility] Last Admin: 03/22/18 09:00 Dose: 10 mg Metformin HCl (Glucophage) 500 mg PO BID [facility] Last Admin: 03/22/18 09:00 Dose: 500 mg Multivitamins/Minerals (Therapeutic-M Tab) 1 tab PO 0800 [facility] Last Admin: 03/22/18 09:00 Dose: 1 tab Thiamine HCl (Vitamin B1 Tab) 100 mg PO DAILY [facility] Last Admin: 03/22/18 09:00 Dose: 100 mg Zinc Sulfate (Zinc Sulfate 220 Mg Cap) 220 mg PO DAILY [facility] Last Admin: 03/22/18 09:00 Dose: 220 mg - Labs Labs: 03/21/18 05:30 03/21/18 07:45 PT 12.5 SECONDS (9.4-12.5) 12/09/17 10:00 INR 1.09 (0.93-1.08) H 12/09/17 10:00 APTT 28.3 Seconds (25.1-36.5) 11/30/17 05:30 Attending/Attestation - Attestation I have personally seen and examined this patient.: Yes I have fully participated in the care of the patient.: Yes I have reviewed all pertinent clinical information, including history, physical exam and plan: Yes Notes (Text): 03/22/18 15:17 Patient seen and examined at bedside. He is watching TV without complaints. He refuses to participate with PT and OOB to chair. He is awaiting court date for guardianship process for placement this . Sixto Galo MD Hospitalist.
[2018-03-22] MEDS: Insulin Reg-LOW-Coverage SC SCH ×4 (08:05→21:44)
[2018-03-22] MEDS: Multivitamin With Minerals Tab PO SCH (09:00)
--- NOTE | 2018-03-22 14:31 | CP.PCM.PN ---
Subjective - Date & Time of Evaluation Date of Evaluation: 03/22/18 Time of Evaluation: 11:35 - Subjective Subjective: No fevers, not in distress. Objective - Vital Signs/Intake and Output Vital Signs (last 24 hours): Temp Pulse Resp BP Pulse Ox 98.3 F 64 20 106/70 95 03/21/18 17:30 03/21/18 17:30 03/21/18 17:30 03/21/18 17:30 03/21/18 17:30 Intake and Output: 03/21/18 03/22/18 18:59 06:59 Intake Total 925 1020 Balance 925 1020 - Medications Medications: Current Medications Amlodipine Besylate (Norvasc) 10 mg PO DAILY [facility] Last Admin: 03/21/18 09:20 Dose: 10 mg Aspirin (Ecotrin) 81 mg PO DAILY [facility] Last Admin: 03/21/18 09:20 Dose: 81 mg Atorvastatin Calcium (Lipitor) 20 mg PO DIN [facility] Last Admin: 03/21/18 16:57 Dose: 20 mg Citalopram Hydrobromide (Celexa) 10 mg PO DAILY [facility] Last Admin: 03/21/18 09:20 Dose: 10 mg Folic Acid (Folic Acid) 1 mg PO DAILY [facility] Last Admin: 03/21/18 09:20 Dose: 1 mg Insulin Human Regular (Humulin R Low) 0 units SC [facility] PRN Reason: Protocol Last Admin: 03/21/18 22:39 Dose: Not Given Lisinopril (Zestril) 10 mg PO DAILY [facility] Last Admin: 03/21/18 09:20 Dose: 10 mg Metformin HCl (Glucophage) 500 mg PO BID [facility] Last Admin: 03/21/18 17:01 Dose: 500 mg Multivitamins/Minerals (Therapeutic-M Tab) 1 tab PO 0800 [facility] Last Admin: 03/21/18 09:19 Dose: 1 tab Thiamine HCl (Vitamin B1 Tab) 100 mg PO DAILY [facility] Last Admin: 03/21/18 09:20 Dose: 100 mg Zinc Sulfate (Zinc Sulfate 220 Mg Cap) 220 mg PO DAILY [facility] Last Admin: 03/21/18 09:20 Dose: 220 mg - Labs Labs: 03/21/18 05:30 03/21/18 07:45 PT 12.5 SECONDS (9.4-12.5) 12/09/17 10:00 INR 1.09 (0.93-1.08) H 12/09/17 10:00 APTT 28.3 Seconds (25.1-36.5) 11/30/17 05:30 - Constitutional Appears: Non-toxic, Chronically Ill - Head Exam Head Exam: NORMAL INSPECTION - Respiratory Exam Respiratory Exam: Decreased Breath Sounds - Cardiovascular Exam Cardiovascular Exam: +S1, +S2 - GI/Abdominal Exam GI & Abdominal Exam: Soft. absent: Tenderness Assessment and Plan - Assessment and Plan (Free Text) Plan: Assessment S/P sepsis due to strep viridans and CoNS bacteremia from right gluteal and back cellulitis S/P multifocal HCAP on top of Influenza A infection S/P Sammie infection of sacral area as well peripheral vascular disease Plan patient had completed 42 days of antibiotics on this admission - continue to monitor clinically off antibiotics since he is at risk for hospital-acquired infections patient is still waiting for guardianship
[2018-03-23] MEDS: Insulin Reg-LOW-Coverage SC SCH ×4 (08:13→21:53)
--- NOTE | 2018-03-23 08:45 | CP.PCM.PN ---
<Rocael Bowie - Last Filed: 03/23/18 15:26> Subjective - Date & Time of Evaluation Date of Evaluation: 03/23/18 Time of Evaluation: 08:40 - Subjective Subjective: Patient seen and evaluated this AM. No acute events reported overnight. Denies chest pain, shortness of breath, abdominal pain, nausea, vomiting, fever, weakness, numbness. Objective - Vital Signs/Intake and Output Vital Signs (last 24 hours): Temp Pulse Resp BP Pulse Ox 97.0 F L 90 20 116/81 95 03/23/18 06:00 03/23/18 06:00 03/23/18 06:00 03/23/18 06:00 03/23/18 06:00 Intake and Output: 03/23/18 03/23/18 06:59 18:59 Intake Total 660 Balance 660 - Medications Medications: Current Medications Amlodipine Besylate (Norvasc) 10 mg PO DAILY [facility] Last Admin: 03/22/18 09:00 Dose: 10 mg Aspirin (Ecotrin) 81 mg PO DAILY [facility] Last Admin: 03/22/18 09:00 Dose: 81 mg Atorvastatin Calcium (Lipitor) 20 mg PO DIN [facility] Last Admin: 03/22/18 17:20 Dose: 20 mg Citalopram Hydrobromide (Celexa) 10 mg PO DAILY [facility] Last Admin: 03/22/18 09:00 Dose: 10 mg Folic Acid (Folic Acid) 1 mg PO DAILY [facility] Last Admin: 03/22/18 09:00 Dose: 1 mg Insulin Human Regular (Humulin R Low) 0 units SC [facility] PRN Reason: Protocol Last Admin: 03/23/18 08:13 Dose: Not Given Lisinopril (Zestril) 10 mg PO DAILY [facility] Last Admin: 03/22/18 09:00 Dose: 10 mg Metformin HCl (Glucophage) 500 mg PO BID [facility] Last Admin: 03/22/18 17:20 Dose: 500 mg Multivitamins/Minerals (Therapeutic-M Tab) 1 tab PO 0800 [facility] Last Admin: 03/22/18 09:00 Dose: 1 tab Thiamine HCl (Vitamin B1 Tab) 100 mg PO DAILY [facility] Last Admin: 03/22/18 09:00 Dose: 100 mg Zinc Sulfate (Zinc Sulfate 220 Mg Cap) 220 mg PO DAILY [facility] Last Admin: 03/22/18 09:00 Dose: 220 mg - Labs Labs: 03/21/18 05:30 03/21/18 07:45 PT 12.5 SECONDS (9.4-12.5) 12/09/17 10:00 INR 1.09 (0.93-1.08) H 12/09/17 10:00 APTT 28.3 Seconds (25.1-36.5) 11/30/17 05:30 - Constitutional Appears: Non-toxic - Head Exam Head Exam: ATRAUMATIC, NORMAL INSPECTION, NORMOCEPHALIC - Eye Exam Eye Exam: EOMI, PERRL - Respiratory Exam Respiratory Exam: Clear to Ausculation Bilateral, NORMAL BREATHING PATTERN - Cardiovascular Exam Cardiovascular Exam: REGULAR RHYTHM, +S1, +S2 - GI/Abdominal Exam GI & Abdominal Exam: Soft, Normal Bowel Sounds - Extremities Exam Extremities Exam: Full ROM. absent: Pedal Edema - Back Exam Back Exam: absent: CVA tenderness (L), CVA tenderness (R) - Neurological Exam Neurological Exam: Alert, Awake Additional comments: Motor and sensory grossly intact - Psychiatric Exam Psychiatric exam: Flat Affect - Skin Skin Exam: Dry, Warm Assessment and Plan - Assessment and Plan (Free Text) Assessment: 57yo male unknown PMHx admitted for AMS, right hip cellulitis, multifocal pneumonia, influenza A, strep viridians bacteremia with findings of stroke on MRI - acute vs. 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 Patient was treated for bacteremia with IV abx. Patient continues to refuse testing at this time. Guardianship establishment pending. Plan: Altered mental status - Etiology: likely secondary to ischemic stroke residual deficits vs Metabolic Encephalopathy - Currently at baseline mentation which waxes and wanes - Patient mentation clinically unchanged, able to answer simple questions - Delirium precautions; PT - patient refusing to participate - ASA/Lipitor Coag negative Staphylococcus bacteremia - Last bld clx negative 12/04/17 with completion of 6 week course of antibiotics - Monitor WBC, ESR, CRP weekly - Echocardiogram unable to rule out vegetations, family is unavailable for consent for TAHIR Stage 1 decubitus ulcer-improving - Patient refuses to get out of bed to chair - Refusing PT - Skin breakdown improving - Continue with Q2 turns, Wound care consulted - Folic acid, Thiamine, Zinc daily Colonic mass - CT Abd/Pelvis showing colonic mass and hepatic lesions - GI consulted: follow recs - Flex sig/colonoscopy refused by patient at this time - Family unable to be contacted for consent Diabetes mellitus type 2 in nonobese - HgA1c is 7.4 - Continue ISS low - Metformin 500mg BID - Carb consistent diet HTN - Lisinopril 10 daily - Stable, continue to monitor Affective disorder - Celexa 10mg PO Daily Prophylaxis - No GI PPX indicated this time - SCDs Dispo: Patient lacks decision making capacity and is unable to comprehend his diagnosis, medical treatment, potential benefit and risk associated with and without treatment. Guardianship paperwork being processed followed by potential placement. Court scheduled for 03/24 concerning guardianship Case and plan discussed with attending <Sixto Galo - Last Filed: 03/24/18 07:54> Objective - Vital Signs/Intake and Output Vital Signs (last 24 hours): Temp Pulse Resp BP Pulse Ox 97.8 F 90 19 105/73 95 03/23/18 18:00 03/23/18 18:00 03/23/18 18:00 03/23/18 18:00 03/23/18 18:00 Intake and Output: 03/24/18 03/24/18 06:59 18:59 Intake Total 600 Balance 600 - Medications Medications: Current Medications Amlodipine Besylate (Norvasc) 10 mg PO DAILY [facility] Last Admin: 03/23/18 11:21 Dose: 10 mg Aspirin (Ecotrin) 81 mg PO DAILY [facility] Last Admin: 03/23/18 11:20 Dose: 81 mg Atorvastatin Calcium (Lipitor) 20 mg PO DIN [facility] Last Admin: 03/23/18 18:12 Dose: 20 mg Citalopram Hydrobromide (Celexa) 10 mg PO DAILY [facility] Last Admin: 03/23/18 11:20 Dose: 10 mg Folic Acid (Folic Acid) 1 mg PO DAILY [facility] Last Admin: 03/23/18 11:21 Dose: 1 mg Insulin Human Regular (Humulin R Low) 0 units SC [facility] PRN Reason: Protocol Last Admin: 03/24/18 07:21 Dose: Not Given Lisinopril (Zestril) 10 mg PO DAILY [facility] Last Admin: 03/23/18 11:20 Dose: 10 mg Metformin HCl (Glucophage) 500 mg PO BID [facility] Last Admin: 03/23/18 18:12 Dose: 500 mg Multivitamins/Minerals (Therapeutic-M Tab) 1 tab PO 0800 [facility] Last Admin: 03/23/18 11:20 Dose: 1 tab Thiamine HCl (Vitamin B1 Tab) 100 mg PO DAILY [facility] Last Admin: 03/23/18 11:20 Dose: 100 mg Zinc Sulfate (Zinc Sulfate 220 Mg Cap) 220 mg PO DAILY [facility] Last Admin: 03/23/18 11:20 Dose: 220 mg - Labs Labs: 03/21/18 05:30 03/21/18 07:45 PT 12.5 SECONDS (9.4-12.5) 12/09/17 10:00 INR 1.09 (0.93-1.08) H 12/09/17 10:00 APTT 28.3 Seconds (25.1-36.5) 11/30/17 05:30 Attending/Attestation - Attestation I have personally seen and examined this patient.: Yes I have fully participated in the care of the patient.: Yes I have reviewed all pertinent clinical information, including history, physical exam and plan: Yes Notes (Text): 03/23/18 Patient seen and examined at bedside. He is comfortable without any new complaints. He is awaiting court date for guardianship process for placement tomorrow. Sixto Galo MD Hospitalist.
[2018-03-23] MEDS: Multivitamin With Minerals Tab PO SCH (11:20)
--- NOTE | 2018-03-23 15:45 | CP.PCM.PN ---
Subjective - Date & Time of Evaluation Date of Evaluation: 03/23/18 Time of Evaluation: 11:25 - Subjective Subjective: Afebrile, not in distress. Objective - Vital Signs/Intake and Output Vital Signs (last 24 hours): Temp Pulse Resp BP Pulse Ox 97.0 F L 80 20 120/80 95 03/23/18 06:00 03/23/18 11:20 03/23/18 06:00 03/23/18 11:21 03/23/18 06:00 Intake and Output: 03/23/18 03/23/18 06:59 18:59 Intake Total 660 Balance 660 - Medications Medications: Current Medications Amlodipine Besylate (Norvasc) 10 mg PO DAILY [facility] Last Admin: 03/23/18 11:21 Dose: 10 mg Aspirin (Ecotrin) 81 mg PO DAILY [facility] Last Admin: 03/23/18 11:20 Dose: 81 mg Atorvastatin Calcium (Lipitor) 20 mg PO DIN [facility] Last Admin: 03/22/18 17:20 Dose: 20 mg Citalopram Hydrobromide (Celexa) 10 mg PO DAILY [facility] Last Admin: 03/23/18 11:20 Dose: 10 mg Folic Acid (Folic Acid) 1 mg PO DAILY [facility] Last Admin: 03/23/18 11:21 Dose: 1 mg Insulin Human Regular (Humulin R Low) 0 units SC [facility] PRN Reason: Protocol Last Admin: 03/23/18 08:13 Dose: Not Given Lisinopril (Zestril) 10 mg PO DAILY [facility] Last Admin: 03/23/18 11:20 Dose: 10 mg Metformin HCl (Glucophage) 500 mg PO BID [facility] Last Admin: 03/23/18 11:20 Dose: 500 mg Multivitamins/Minerals (Therapeutic-M Tab) 1 tab PO 0800 [facility] Last Admin: 03/23/18 11:20 Dose: 1 tab Thiamine HCl (Vitamin B1 Tab) 100 mg PO DAILY [facility] Last Admin: 03/23/18 11:20 Dose: 100 mg Zinc Sulfate (Zinc Sulfate 220 Mg Cap) 220 mg PO DAILY [facility] Last Admin: 03/23/18 11:20 Dose: 220 mg - Labs Labs: 03/21/18 05:30 03/21/18 07:45 PT 12.5 SECONDS (9.4-12.5) 12/09/17 10:00 INR 1.09 (0.93-1.08) H 12/09/17 10:00 APTT 28.3 Seconds (25.1-36.5) 11/30/17 05:30 - Constitutional Appears: Non-toxic, Chronically Ill - Head Exam Head Exam: NORMAL INSPECTION - Respiratory Exam Respiratory Exam: Decreased Breath Sounds - Cardiovascular Exam Cardiovascular Exam: +S1, +S2 - GI/Abdominal Exam GI & Abdominal Exam: Soft. absent: Tenderness Assessment and Plan - Assessment and Plan (Free Text) Plan: Assessment S/P sepsis due to strep viridans and CoNS bacteremia from right gluteal and back cellulitis S/P multifocal HCAP on top of Influenza A infection S/P Sammie infection of sacral area as well peripheral vascular disease Plan patient had completed 42 days of antibiotics on this admission - continue to monitor clinically off antibiotics since he is at risk for healthcare- associated infections patient is still waiting for guardianship
[2018-03-24] MEDS: Insulin Reg-LOW-Coverage SC SCH ×4 (07:21→22:44)
[2018-03-24] MEDS: Multivitamin With Minerals Tab PO SCH (10:12)
--- NOTE | 2018-03-24 14:23 | CP.PCM.PN ---
<Rocael Bowie - Last Filed: 03/24/18 14:17> Subjective - Date & Time of Evaluation Date of Evaluation: 03/24/18 Time of Evaluation: 14:18 - Subjective Subjective: Patient seen and evaluated this AM. No acute events reported overnight. Patient without complaints. Clinically unchanged. Denies chest pain, shortness of breath , nausea, vomiting, fever, chills, weakness, focal deficits. Objective - Vital Signs/Intake and Output Vital Signs (last 24 hours): Temp Pulse Resp BP Pulse Ox 98 F 72 20 128/70 95 03/24/18 06:00 03/24/18 10:12 03/24/18 06:00 03/24/18 10:12 03/24/18 06:00 Intake and Output: 03/24/18 03/24/18 06:59 18:59 Intake Total 600 Balance 600 - Medications Medications: Current Medications Amlodipine Besylate (Norvasc) 10 mg PO DAILY [facility] Last Admin: 03/24/18 10:11 Dose: 10 mg Aspirin (Ecotrin) 81 mg PO DAILY [facility] Last Admin: 03/24/18 10:12 Dose: 81 mg Atorvastatin Calcium (Lipitor) 20 mg PO DIN [facility] Last Admin: 03/23/18 18:12 Dose: 20 mg Citalopram Hydrobromide (Celexa) 10 mg PO DAILY [facility] Last Admin: 03/24/18 10:12 Dose: 10 mg Folic Acid (Folic Acid) 1 mg PO DAILY [facility] Last Admin: 03/24/18 10:12 Dose: 1 mg Insulin Human Regular (Humulin R Low) 0 units SC [facility] PRN Reason: Protocol Last Admin: 03/24/18 11:35 Dose: Not Given Lisinopril (Zestril) 10 mg PO DAILY [facility] Last Admin: 03/24/18 10:12 Dose: 10 mg Metformin HCl (Glucophage) 500 mg PO BID [facility] Last Admin: 03/24/18 10:12 Dose: 500 mg Multivitamins/Minerals (Therapeutic-M Tab) 1 tab PO 0800 [facility] Last Admin: 03/24/18 10:12 Dose: 1 tab Thiamine HCl (Vitamin B1 Tab) 100 mg PO DAILY [facility] Last Admin: 03/24/18 10:12 Dose: 100 mg Zinc Sulfate (Zinc Sulfate 220 Mg Cap) 220 mg PO DAILY [facility] Last Admin: 03/24/18 10:12 Dose: 220 mg - Labs Labs: 03/21/18 05:30 03/21/18 07:45 PT 12.5 SECONDS (9.4-12.5) 12/09/17 10:00 INR 1.09 (0.93-1.08) H 12/09/17 10:00 APTT 28.3 Seconds (25.1-36.5) 11/30/17 05:30 - Constitutional Appears: No Acute Distress - Head Exam Head Exam: ATRAUMATIC, NORMAL INSPECTION, NORMOCEPHALIC - Eye Exam Eye Exam: EOMI, PERRL - ENT Exam ENT Exam: Mucous Membranes Moist - Respiratory Exam Respiratory Exam: Clear to Ausculation Bilateral, NORMAL BREATHING PATTERN. absent: Rales, Rhonchi, Wheezes - Cardiovascular Exam Cardiovascular Exam: REGULAR RHYTHM, +S1, +S2 - GI/Abdominal Exam GI & Abdominal Exam: Soft, Normal Bowel Sounds. absent: Firm, Rigid, Tenderness - Neurological Exam Neurological Exam: Alert, Awake, Oriented x3 Neuro motor strength exam: Left Upper Extremity: 5, Right Upper Extremity: 5, Left Lower Extremity: 5, Right Lower Extremity: 5 - Psychiatric Exam Psychiatric exam: Flat Affect - Skin Skin Exam: Dry, Warm Assessment and Plan - Assessment and Plan (Free Text) Assessment: 57yo male unknown PMHx admitted for AMS, right hip cellulitis, multifocal pneumonia, influenza A, strep viridians bacteremia with findings of stroke on MRI - acute vs. 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 Patient was treated for bacteremia with IV abx. Patient continues to refuse testing at this time. Guardianship establishment pending. Plan: Altered mental status - Etiology: likely secondary to ischemic stroke residual deficits vs Metabolic Encephalopathy - Currently at baseline mentation which waxes and wanes - Patient mentation clinically unchanged, able to answer simple questions - Delirium precautions; PT - patient refusing to participate - ASA/Lipitor Coag negative Staphylococcus bacteremia - Last bld clx negative 12/04/17 with completion of 6 week course of antibiotics - Monitor WBC, ESR, CRP weekly - Echocardiogram unable to rule out vegetations, family is unavailable for consent for TAHIR Stage 1 decubitus ulcer-improving - Patient refuses to get out of bed to chair - Refusing PT - Skin breakdown improving - Continue with Q2 turns, Wound care consulted - Folic acid, Thiamine, Zinc daily Colonic mass - CT Abd/Pelvis showing colonic mass and hepatic lesions - GI consulted: follow recs - Flex sig/colonoscopy refused by patient at this time - Family unable to be contacted for consent Diabetes mellitus type 2 in non-obese - HgA1c is 7.4 - Continue ISS low - Metformin 500mg BID - Carb consistent diet HTN - Lisinopril 10 daily - Stable, continue to monitor Affective disorder - Celexa 10mg PO Daily Prophylaxis - No GI PPX indicated this time - SCDs Dispo: Patient lacks decision making capacity and is unable to comprehend his diagnosis, medical treatment, potential benefit and risk associated with and without treatment. Guardianship paperwork being processed followed by potential placement. Court scheduled for today concerning guardianship Case and plan discussed with attending <Sixto Galo - Last Filed: 03/24/18 14:57> Objective - Vital Signs/Intake and Output Vital Signs (last 24 hours): Temp Pulse Resp BP Pulse Ox 98 F 72 20 128/70 95 03/24/18 06:00 03/24/18 10:12 03/24/18 06:00 03/24/18 10:12 03/24/18 06:00 Intake and Output: 03/24/18 03/24/18 06:59 18:59 Intake Total 600 800 Output Total 1 Balance 600 799 - Medications Medications: Current Medications Amlodipine Besylate (Norvasc) 10 mg PO DAILY [facility] Last Admin: 03/24/18 10:11 Dose: 10 mg Aspirin (Ecotrin) 81 mg PO DAILY [facility] Last Admin: 03/24/18 10:12 Dose: 81 mg Atorvastatin Calcium (Lipitor) 20 mg PO DIN [facility] Last Admin: 03/23/18 18:12 Dose: 20 mg Citalopram Hydrobromide (Celexa) 10 mg PO DAILY [facility] Last Admin: 03/24/18 10:12 Dose: 10 mg Folic Acid (Folic Acid) 1 mg PO DAILY [facility] Last Admin: 03/24/18 10:12 Dose: 1 mg Insulin Human Regular (Humulin R Low) 0 units SC [facility] PRN Reason: Protocol Last Admin: 03/24/18 11:35 Dose: Not Given Lisinopril (Zestril) 10 mg PO DAILY [facility] Last Admin: 03/24/18 10:12 Dose: 10 mg Metformin HCl (Glucophage) 500 mg PO BID [facility] Last Admin: 03/24/18 10:12 Dose: 500 mg Multivitamins/Minerals (Therapeutic-M Tab) 1 tab PO 0800 [facility] Last Admin: 03/24/18 10:12 Dose: 1 tab Thiamine HCl (Vitamin B1 Tab) 100 mg PO DAILY [facility] Last Admin: 03/24/18 10:12 Dose: 100 mg Zinc Sulfate (Zinc Sulfate 220 Mg Cap) 220 mg PO DAILY [facility] Last Admin: 03/24/18 10:12 Dose: 220 mg - Labs Labs: 03/21/18 05:30 03/21/18 07:45 PT 12.5 SECONDS (9.4-12.5) 12/09/17 10:00 INR 1.09 (0.93-1.08) H 12/09/17 10:00 APTT 28.3 Seconds (25.1-36.5) 11/30/17 05:30 Attending/Attestation - Attestation I have personally seen and examined this patient.: Yes I have fully participated in the care of the patient.: Yes I have reviewed all pertinent clinical information, including history, physical exam and plan: Yes Notes (Text): 03/24/18 14:56 Patient seen and examined at bedside. He is comfortable without any new complaints. Watching TV. He is awaiting court date for guardianship process which is now postponed to May 05 (see social science manager note). Sixto Galo MD Hospitalist.
--- NOTE | 2018-03-24 16:16 | CP.PCM.PN ---
Subjective - Date & Time of Evaluation Date of Evaluation: 03/24/18 Time of Evaluation: 10:15 - Subjective Subjective: No fevers, not in distress. Objective - Vital Signs/Intake and Output Vital Signs (last 24 hours): Temp Pulse Resp BP Pulse Ox 98 F 72 20 128/70 95 03/24/18 06:00 03/24/18 10:12 03/24/18 06:00 03/24/18 10:12 03/24/18 06:00 Intake and Output: 03/24/18 03/24/18 06:59 18:59 Intake Total 600 800 Output Total 1 Balance 600 799 - Medications Medications: Current Medications Amlodipine Besylate (Norvasc) 10 mg PO DAILY [facility] Last Admin: 03/24/18 10:11 Dose: 10 mg Aspirin (Ecotrin) 81 mg PO DAILY [facility] Last Admin: 03/24/18 10:12 Dose: 81 mg Atorvastatin Calcium (Lipitor) 20 mg PO DIN [facility] Last Admin: 03/23/18 18:12 Dose: 20 mg Citalopram Hydrobromide (Celexa) 10 mg PO DAILY [facility] Last Admin: 03/24/18 10:12 Dose: 10 mg Folic Acid (Folic Acid) 1 mg PO DAILY [facility] Last Admin: 03/24/18 10:12 Dose: 1 mg Insulin Human Regular (Humulin R Low) 0 units SC [facility] PRN Reason: Protocol Last Admin: 03/24/18 11:35 Dose: Not Given Lisinopril (Zestril) 10 mg PO DAILY [facility] Last Admin: 03/24/18 10:12 Dose: 10 mg Metformin HCl (Glucophage) 500 mg PO BID [facility] Last Admin: 03/24/18 10:12 Dose: 500 mg Multivitamins/Minerals (Therapeutic-M Tab) 1 tab PO 0800 [facility] Last Admin: 03/24/18 10:12 Dose: 1 tab Thiamine HCl (Vitamin B1 Tab) 100 mg PO DAILY [facility] Last Admin: 03/24/18 10:12 Dose: 100 mg Zinc Sulfate (Zinc Sulfate 220 Mg Cap) 220 mg PO DAILY [facility] Last Admin: 03/24/18 10:12 Dose: 220 mg - Labs Labs: 03/21/18 05:30 03/21/18 07:45 PT 12.5 SECONDS (9.4-12.5) 12/09/17 10:00 INR 1.09 (0.93-1.08) H 12/09/17 10:00 APTT 28.3 Seconds (25.1-36.5) 11/30/17 05:30 - Constitutional Appears: Non-toxic, Chronically Ill - Head Exam Head Exam: NORMAL INSPECTION - Respiratory Exam Respiratory Exam: Decreased Breath Sounds - Cardiovascular Exam Cardiovascular Exam: +S1, +S2 - GI/Abdominal Exam GI & Abdominal Exam: Soft. absent: Tenderness Assessment and Plan - Assessment and Plan (Free Text) Plan: Assessment S/P sepsis due to strep viridans and CoNS bacteremia from right gluteal and back cellulitis S/P multifocal HCAP on top of Influenza A infection S/P Sammie infection of sacral area as well peripheral vascular disease Plan patient had completed 42 days of antibiotics on this admission - continue to monitor clinically off antibiotics since he is at risk for nosocomial infections patient is still waiting for guardianship
[2018-03-25 07:03] LABS: HEMOGLOBIN 11.6 g/dL (14.0-18.0); MEAN CELL VOLUME 83.4 fl (80.0-105.0); MEAN CORPUSCULAR HEMOGLOBIN 27.1 pg (25.0-35.0); MEAN CORPUSCULAR HGB CONC 32.5 g/dl (31.0-37.0); MEAN PLATELET VOLUME 9.1 fl (7.0-11.0); RBC 4.28 10^6/uL (3.5-6.1); RED CELL DISTRIBUTION WIDTH 13.7 % (11.5-14.5); WHITE BLOOD COUNT 10.4 10^3/ul (4.5-11.0)
[2018-03-25 07:43] LABS: ALB/GLOB RATIO 1.3 (1.1-1.8); ALT/SGPT 24 U/L (7-56); AST/SGOT 41 U/L (17-59); BLOOD UREA NITROGEN 18 mg/dL (7-21); CALCIUM 9.3 mg/dL (8.4-10.5); GFR NON-AFRICAN AMERICAN > 60
[2018-03-25] MEDS: Insulin Reg-LOW-Coverage SC SCH ×4 (08:13→21:18)
[2018-03-25] MEDS: Multivitamin With Minerals Tab PO SCH (09:00)
--- NOTE | 2018-03-25 12:20 | CP.PCM.PN ---
<Rocael Bowei - Last Filed: 03/25/18 12:16> Subjective - Date & Time of Evaluation Date of Evaluation: 03/25/18 Time of Evaluation: 12:18 - Subjective Subjective: Patient seen and examined this AM. In past 24 hours patient noted to have episode of vomiting. Vomiting described as food products, without bile or blood per nursing. Patient does not recall incident when questioned this AM. Patient denies abdominal pain, bloating, chest pain, fever, nausea, vomiting. Tolerated breakfast this AM. Objective - Vital Signs/Intake and Output Vital Signs (last 24 hours): Temp Pulse Resp BP Pulse Ox 97.8 F 71 20 135/88 97 03/25/18 06:00 03/25/18 09:52 03/25/18 06:00 03/25/18 09:52 03/25/18 06:00 Intake and Output: 03/25/18 03/25/18 06:59 18:59 Intake Total 780 Balance 780 - Medications Medications: Current Medications Amlodipine Besylate (Norvasc) 10 mg PO DAILY [facility] Last Admin: 03/25/18 09:52 Dose: 10 mg Aspirin (Ecotrin) 81 mg PO DAILY [facility] Last Admin: 03/25/18 09:53 Dose: 81 mg Atorvastatin Calcium (Lipitor) 20 mg PO DIN [facility] Last Admin: 03/24/18 17:25 Dose: 20 mg Citalopram Hydrobromide (Celexa) 10 mg PO DAILY [facility] Last Admin: 03/25/18 09:51 Dose: 10 mg Folic Acid (Folic Acid) 1 mg PO DAILY [facility] Last Admin: 03/25/18 09:52 Dose: 1 mg Insulin Human Regular (Humulin R Low) 0 units SC [facility] PRN Reason: Protocol Last Admin: 03/25/18 11:17 Dose: Not Given Lisinopril (Zestril) 10 mg PO DAILY [facility] Last Admin: 03/25/18 09:52 Dose: 10 mg Metformin HCl (Glucophage) 500 mg PO BID [facility] Last Admin: 03/25/18 09:52 Dose: 500 mg Multivitamins/Minerals (Therapeutic-M Tab) 1 tab PO 0800 [facility] Last Admin: 03/25/18 09:00 Dose: 1 tab Thiamine HCl (Vitamin B1 Tab) 100 mg PO DAILY [facility] Last Admin: 03/25/18 09:51 Dose: 100 mg Zinc Sulfate (Zinc Sulfate 220 Mg Cap) 220 mg PO DAILY [facility] Last Admin: 03/25/18 09:51 Dose: 220 mg - Labs Labs: 03/25/18 06:30 03/25/18 06:30 PT 12.5 SECONDS (9.4-12.5) 12/09/17 10:00 INR 1.09 (0.93-1.08) H 12/09/17 10:00 APTT 28.3 Seconds (25.1-36.5) 11/30/17 05:30 - Constitutional Appears: No Acute Distress - Head Exam Head Exam: ATRAUMATIC, NORMAL INSPECTION, NORMOCEPHALIC - Eye Exam Eye Exam: EOMI, PERRL - ENT Exam ENT Exam: Mucous Membranes Moist - Respiratory Exam Respiratory Exam: Clear to Ausculation Bilateral, NORMAL BREATHING PATTERN. absent: Rales, Rhonchi, Wheezes - Cardiovascular Exam Cardiovascular Exam: REGULAR RHYTHM, +S1, +S2 - GI/Abdominal Exam GI & Abdominal Exam: Soft, Normal Bowel Sounds. absent: Guarding, Rigid, Tenderness - Extremities Exam Extremities Exam: Normal Capillary Refill. absent: Calf Tenderness, Pedal Edema , Tenderness - Neurological Exam Neurological Exam: Alert, Awake Additional comments: motor and sensory grossly intact - Psychiatric Exam Psychiatric exam: Flat Affect, Normal Mood - Skin Skin Exam: Dry, Warm Assessment and Plan - Assessment and Plan (Free Text) Assessment: 57yo male unknown PMHx admitted for AMS, right hip cellulitis, multifocal pneumonia, influenza A, strep viridians bacteremia with findings of stroke on MRI - acute vs. 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 Patient was treated for bacteremia with IV abx. Patient continues to refuse testing at this time. Guardianship establishment pending. Plan: Altered mental status - Etiology: likely secondary to ischemic stroke residual deficits vs Metabolic Encephalopathy - Currently at baseline mentation which waxes and wanes - Patient mentation clinically unchanged, able to answer simple questions - Delirium precautions; PT - patient refusing to participate - ASA/Lipitor Coag negative Staphylococcus bacteremia - Last bld clx negative 12/04/17 with completion of 6 week course of antibiotics - Monitor WBC, ESR, CRP weekly - Echocardiogram unable to rule out vegetations, family is unavailable for consent for TAHIR Stage 1 decubitus ulcer-improving - Patient refuses to get out of bed to chair - Refusing PT - Skin breakdown improving - Continue with Q2 turns, Wound care consulted - Folic acid, Thiamine, Zinc daily Colonic mass - CT Abd/Pelvis showing colonic mass and hepatic lesions - GI consulted: follow recs - Flex sig/colonoscopy refused by patient at this time - Family unable to be contacted for consent Diabetes mellitus type 2 in non-obese - HgA1c is 7.4 - Continue ISS low - Metformin 500mg BID - Carb consistent diet HTN - Lisinopril 10 daily - Stable, continue to monitor Affective disorder - Celexa 10mg PO Daily Prophylaxis - No GI PPX indicated this time - SCDs Dispo: Patient lacks decision making capacity and is unable to comprehend his diagnosis, medical treatment, potential benefit and risk associated with and without treatment. Guardianship paperwork being processed followed by potential placement. Court scheduled for 05/05/2018 concerning guardianship Case and plan discussed with attending <Sixto Galo - Last Filed: 03/25/18 13:27> Objective - Vital Signs/Intake and Output Vital Signs (last 24 hours): Temp Pulse Resp BP Pulse Ox 97.8 F 71 20 135/88 97 03/25/18 06:00 03/25/18 09:52 03/25/18 06:00 03/25/18 09:52 03/25/18 06:00 Intake and Output: 03/25/18 03/25/18 06:59 18:59 Intake Total 780 Balance 780 - Medications Medications: Current Medications Amlodipine Besylate (Norvasc) 10 mg PO DAILY [facility] Last Admin: 03/25/18 09:52 Dose: 10 mg Aspirin (Ecotrin) 81 mg PO DAILY [facility] Last Admin: 03/25/18 09:53 Dose: 81 mg Atorvastatin Calcium (Lipitor) 20 mg PO DIN [facility] Last Admin: 03/24/18 17:25 Dose: 20 mg Citalopram Hydrobromide (Celexa) 10 mg PO DAILY [facility] Last Admin: 03/25/18 09:51 Dose: 10 mg Folic Acid (Folic Acid) 1 mg PO DAILY [facility] Last Admin: 03/25/18 09:52 Dose: 1 mg Insulin Human Regular (Humulin R Low) 0 units SC [facility] PRN Reason: Protocol Last Admin: 03/25/18 11:17 Dose: Not Given Lisinopril (Zestril) 10 mg PO DAILY [facility] Last Admin: 03/25/18 09:52 Dose: 10 mg Metformin HCl (Glucophage) 500 mg PO BID [facility] Last Admin: 03/25/18 09:52 Dose: 500 mg Multivitamins/Minerals (Therapeutic-M Tab) 1 tab PO 0800 [facility] Last Admin: 03/25/18 09:00 Dose: 1 tab Thiamine HCl (Vitamin B1 Tab) 100 mg PO DAILY [facility] Last Admin: 03/25/18 09:51 Dose: 100 mg Zinc Sulfate (Zinc Sulfate 220 Mg Cap) 220 mg PO DAILY [facility] Last Admin: 03/25/18 09:51 Dose: 220 mg - Labs Labs: 03/25/18 06:30 03/25/18 06:30 PT 12.5 SECONDS (9.4-12.5) 12/09/17 10:00 INR 1.09 (0.93-1.08) H 12/09/17 10:00 APTT 28.3 Seconds (25.1-36.5) 11/30/17 05:30 Attending/Attestation - Attestation I have personally seen and examined this patient.: Yes I have fully participated in the care of the patient.: Yes I have reviewed all pertinent clinical information, including history, physical exam and plan: Yes Notes (Text): 03/25/18 13:26 Patient seen and examined at bedside. Overnight he had one episode of vomiting. Denies any nausea, vomiting or abdominal pain today. He is tolerating diet without complaints. Continue with protonix and zofran prn. Continue with diet as tolerated. He is awaiting court date for guardianship process which is now postponed to May 05. Sixto Galo MD Hospitalist.
--- NOTE | 2018-03-25 13:53 | CP.PCM.PN ---
Subjective - Date & Time of Evaluation Date of Evaluation: 03/25/18 Time of Evaluation: 12:30 - Subjective Subjective: Patient apparently had episodes of vomiting again yesterday but none this morning, no fevers, not in distress. Objective - Vital Signs/Intake and Output Vital Signs (last 24 hours): Temp Pulse Resp BP Pulse Ox 97.8 F 71 20 135/88 97 03/25/18 06:00 03/25/18 09:52 03/25/18 06:00 03/25/18 09:52 03/25/18 06:00 Intake and Output: 03/25/18 03/25/18 06:59 18:59 Intake Total 780 Balance 780 - Medications Medications: Current Medications Amlodipine Besylate (Norvasc) 10 mg PO DAILY [facility] Last Admin: 03/25/18 09:52 Dose: 10 mg Aspirin (Ecotrin) 81 mg PO DAILY [facility] Last Admin: 03/25/18 09:53 Dose: 81 mg Atorvastatin Calcium (Lipitor) 20 mg PO DIN [facility] Last Admin: 03/24/18 17:25 Dose: 20 mg Citalopram Hydrobromide (Celexa) 10 mg PO DAILY [facility] Last Admin: 03/25/18 09:51 Dose: 10 mg Folic Acid (Folic Acid) 1 mg PO DAILY [facility] Last Admin: 03/25/18 09:52 Dose: 1 mg Insulin Human Regular (Humulin R Low) 0 units SC [facility] PRN Reason: Protocol Last Admin: 03/25/18 11:17 Dose: Not Given Lisinopril (Zestril) 10 mg PO DAILY [facility] Last Admin: 03/25/18 09:52 Dose: 10 mg Metformin HCl (Glucophage) 500 mg PO BID [facility] Last Admin: 03/25/18 09:52 Dose: 500 mg Multivitamins/Minerals (Therapeutic-M Tab) 1 tab PO 0800 [facility] Last Admin: 03/25/18 09:00 Dose: 1 tab Thiamine HCl (Vitamin B1 Tab) 100 mg PO DAILY [facility] Last Admin: 03/25/18 09:51 Dose: 100 mg Zinc Sulfate (Zinc Sulfate 220 Mg Cap) 220 mg PO DAILY [facility] Last Admin: 03/25/18 09:51 Dose: 220 mg - Labs Labs: 03/25/18 06:30 03/25/18 06:30 PT 12.5 SECONDS (9.4-12.5) 12/09/17 10:00 INR 1.09 (0.93-1.08) H 12/09/17 10:00 APTT 28.3 Seconds (25.1-36.5) 11/30/17 05:30 - Constitutional Appears: Non-toxic, Chronically Ill - Head Exam Head Exam: NORMAL INSPECTION - Respiratory Exam Respiratory Exam: Decreased Breath Sounds - Cardiovascular Exam Cardiovascular Exam: +S1, +S2 - GI/Abdominal Exam GI & Abdominal Exam: Soft. absent: Tenderness Assessment and Plan - Assessment and Plan (Free Text) Plan: Assessment S/P sepsis due to strep viridans and CoNS bacteremia from right gluteal and back cellulitis S/P multifocal HCAP on top of Influenza A infection S/P Sammie infection of sacral area as well peripheral vascular disease Plan patient had completed 42 days of antibiotics on this admission - continue to monitor clinically off antibiotics since he is at risk for hospital-acquired infections patient is still waiting for guardianship
[2018-03-26] MEDS: Insulin Reg-LOW-Coverage SC SCH ×4 (09:47→22:19)
[2018-03-26] MEDS: Multivitamin With Minerals Tab PO SCH (09:48)
--- NOTE | 2018-03-26 14:54 | CP.PCM.PN ---
Subjective - Date & Time of Evaluation Date of Evaluation: 03/26/18 Time of Evaluation: 12:10 - Subjective Subjective: No fevers, not in distress. Objective - Vital Signs/Intake and Output Vital Signs (last 24 hours): Temp Pulse Resp BP Pulse Ox 97.3 F L 86 20 113/63 97 03/26/18 06:00 03/26/18 06:00 03/26/18 06:00 03/26/18 09:48 03/26/18 06:00 Intake and Output: 03/26/18 03/26/18 06:59 18:59 Intake Total 480 Balance 480 - Medications Medications: Current Medications Amlodipine Besylate (Norvasc) 10 mg PO DAILY [facility] Last Admin: 03/26/18 09:48 Dose: 10 mg Aspirin (Ecotrin) 81 mg PO DAILY [facility] Last Admin: 03/26/18 09:48 Dose: 81 mg Atorvastatin Calcium (Lipitor) 20 mg PO DIN [facility] Last Admin: 03/25/18 17:15 Dose: 20 mg Citalopram Hydrobromide (Celexa) 10 mg PO DAILY [facility] Last Admin: 03/26/18 09:48 Dose: 10 mg Folic Acid (Folic Acid) 1 mg PO DAILY [facility] Last Admin: 03/26/18 09:48 Dose: 1 mg Insulin Human Regular (Humulin R Low) 0 units SC [facility] PRN Reason: Protocol Last Admin: 03/26/18 09:47 Dose: 2 units Lisinopril (Zestril) 10 mg PO DAILY [facility] Last Admin: 03/26/18 09:49 Dose: 10 mg Metformin HCl (Glucophage) 500 mg PO BID [facility] Last Admin: 03/26/18 09:48 Dose: 500 mg Multivitamins/Minerals (Therapeutic-M Tab) 1 tab PO 0800 [facility] Last Admin: 03/26/18 09:48 Dose: 1 tab Thiamine HCl (Vitamin B1 Tab) 100 mg PO DAILY [facility] Last Admin: 03/26/18 09:48 Dose: 100 mg Zinc Sulfate (Zinc Sulfate 220 Mg Cap) 220 mg PO DAILY [facility] Last Admin: 03/26/18 09:48 Dose: 220 mg - Labs Labs: 03/25/18 06:30 03/25/18 06:30 PT 12.5 SECONDS (9.4-12.5) 12/09/17 10:00 INR 1.09 (0.93-1.08) H 12/09/17 10:00 APTT 28.3 Seconds (25.1-36.5) 11/30/17 05:30 - Constitutional Appears: Non-toxic, Chronically Ill - Head Exam Head Exam: NORMAL INSPECTION - Respiratory Exam Respiratory Exam: Decreased Breath Sounds - Cardiovascular Exam Cardiovascular Exam: +S1, +S2 - GI/Abdominal Exam GI & Abdominal Exam: Soft. absent: Tenderness Assessment and Plan - Assessment and Plan (Free Text) Plan: Assessment S/P sepsis due to strep viridans and CoNS bacteremia from right gluteal and back cellulitis S/P multifocal HCAP on top of Influenza A infection S/P Sammie infection of sacral area as well peripheral vascular disease Plan patient had completed 42 days of antibiotics on this admission - continue to monitor clinically off antibiotics since he is at risk for healthcare- associated infections patient is still waiting for guardianship
--- NOTE | 2018-03-26 16:43 | CP.PCM.PN ---
<Rocael Bowie - Last Filed: 03/26/18 16:40> Subjective - Date & Time of Evaluation Date of Evaluation: 03/26/18 Time of Evaluation: 16:40 - Subjective Subjective: Patient seen and evaluated this AM. No acute events reported overnight. Patient has no complaints. Clinically unchanged. Objective - Vital Signs/Intake and Output Vital Signs (last 24 hours): Temp Pulse Resp BP Pulse Ox 97.3 F L 86 20 113/63 97 03/26/18 06:00 03/26/18 06:00 03/26/18 06:00 03/26/18 09:48 03/26/18 06:00 Intake and Output: 03/26/18 03/26/18 06:59 18:59 Intake Total 480 Balance 480 - Medications Medications: Current Medications Amlodipine Besylate (Norvasc) 10 mg PO DAILY [facility] Last Admin: 03/26/18 09:48 Dose: 10 mg Aspirin (Ecotrin) 81 mg PO DAILY [facility] Last Admin: 03/26/18 09:48 Dose: 81 mg Atorvastatin Calcium (Lipitor) 20 mg PO DIN [facility] Last Admin: 03/25/18 17:15 Dose: 20 mg Citalopram Hydrobromide (Celexa) 10 mg PO DAILY [facility] Last Admin: 03/26/18 09:48 Dose: 10 mg Folic Acid (Folic Acid) 1 mg PO DAILY [facility] Last Admin: 03/26/18 09:48 Dose: 1 mg Insulin Human Regular (Humulin R Low) 0 units SC [facility] PRN Reason: Protocol Last Admin: 03/26/18 12:30 Dose: Not Given Lisinopril (Zestril) 10 mg PO DAILY [facility] Last Admin: 03/26/18 09:49 Dose: 10 mg Metformin HCl (Glucophage) 500 mg PO BID [facility] Last Admin: 03/26/18 09:48 Dose: 500 mg Multivitamins/Minerals (Therapeutic-M Tab) 1 tab PO 0800 [facility] Last Admin: 03/26/18 09:48 Dose: 1 tab Thiamine HCl (Vitamin B1 Tab) 100 mg PO DAILY [facility] Last Admin: 03/26/18 09:48 Dose: 100 mg Zinc Sulfate (Zinc Sulfate 220 Mg Cap) 220 mg PO DAILY [facility] Last Admin: 03/26/18 09:48 Dose: 220 mg - Labs Labs: 03/25/18 06:30 03/25/18 06:30 PT 12.5 SECONDS (9.4-12.5) 12/09/17 10:00 INR 1.09 (0.93-1.08) H 12/09/17 10:00 APTT 28.3 Seconds (25.1-36.5) 11/30/17 05:30 - Constitutional Appears: No Acute Distress - Head Exam Head Exam: ATRAUMATIC, NORMAL INSPECTION, NORMOCEPHALIC - Eye Exam Eye Exam: EOMI, PERRL - Neck Exam Neck Exam: Full ROM - Respiratory Exam Respiratory Exam: Clear to Ausculation Bilateral, NORMAL BREATHING PATTERN - Cardiovascular Exam Cardiovascular Exam: REGULAR RHYTHM, +S1, +S2 - GI/Abdominal Exam GI & Abdominal Exam: Soft, Normal Bowel Sounds. absent: Tenderness - Extremities Exam Extremities Exam: Normal Capillary Refill. absent: Calf Tenderness, Pedal Edema , Tenderness - Neurological Exam Neurological Exam: Alert, Awake Additional comments: motor and sensory grossly intact - Psychiatric Exam Psychiatric exam: Flat Affect, Normal Mood - Skin Skin Exam: Dry, Warm Assessment and Plan - Assessment and Plan (Free Text) Assessment: 57yo male unknown PMHx admitted for AMS, right hip cellulitis, multifocal pneumonia, influenza A, strep viridians bacteremia with findings of stroke on MRI - acute vs. 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 Patient was treated for bacteremia with IV abx. Patient continues to refuse testing at this time. Guardianship establishment pending. Plan: Altered mental status - Etiology: likely secondary to ischemic stroke residual deficits vs Metabolic Encephalopathy - Currently at baseline mentation which waxes and wanes - Patient mentation clinically unchanged, able to answer simple questions - Delirium precautions; PT - patient refusing to participate - ASA/Lipitor Coag negative Staphylococcus bacteremia - Last bld clx negative 12/04/17 with completion of 6 week course of antibiotics - Monitor WBC, ESR, CRP weekly - Echocardiogram unable to rule out vegetations, family is unavailable for consent for TAHIR Stage 1 decubitus ulcer-improving - Patient refuses to get out of bed to chair - Refusing PT - Skin breakdown improving - Continue with Q2 turns, Wound care consulted - Folic acid, Thiamine, Zinc daily Colonic mass - CT Abd/Pelvis showing colonic mass and hepatic lesions - GI consulted: follow recs - Flex sig/colonoscopy refused by patient at this time - Family unable to be contacted for consent Diabetes mellitus type 2 in non-obese - HgA1c is 7.4 - Continue ISS low - Metformin 500mg BID - Carb consistent diet HTN - Lisinopril 10 daily - Stable, continue to monitor Affective disorder - Celexa 10mg PO Daily Prophylaxis - No GI PPX indicated this time - SCDs Dispo: Patient lacks decision making capacity and is unable to comprehend his diagnosis, medical treatment, potential benefit and risk associated with and without treatment. Guardianship paperwork being processed followed by potential placement. Court scheduled for 05/05/2018 concerning guardianship Case and plan discussed with attending <Deanna Schumacher - Last Filed: 03/26/18 16:57> Objective - Vital Signs/Intake and Output Vital Signs (last 24 hours): Temp Pulse Resp BP Pulse Ox 98.0 F 85 20 106/70 96 03/26/18 16:55 03/26/18 16:55 03/26/18 16:55 03/26/18 16:55 03/26/18 16:55 Intake and Output: 03/26/18 03/26/18 06:59 18:59 Intake Total 480 Balance 480 - Medications Medications: Current Medications Amlodipine Besylate (Norvasc) 10 mg PO DAILY [facility] Last Admin: 03/26/18 09:48 Dose: 10 mg Aspirin (Ecotrin) 81 mg PO DAILY [facility] Last Admin: 03/26/18 09:48 Dose: 81 mg Atorvastatin Calcium (Lipitor) 20 mg PO DIN [facility] Last Admin: 03/25/18 17:15 Dose: 20 mg Citalopram Hydrobromide (Celexa) 10 mg PO DAILY [facility] Last Admin: 03/26/18 09:48 Dose: 10 mg Folic Acid (Folic Acid) 1 mg PO DAILY [facility] Last Admin: 03/26/18 09:48 Dose: 1 mg Insulin Human Regular (Humulin R Low) 0 units SC [facility] PRN Reason: Protocol Last Admin: 03/26/18 16:42 Dose: Not Given Lisinopril (Zestril) 10 mg PO DAILY [facility] Last Admin: 03/26/18 09:49 Dose: 10 mg Metformin HCl (Glucophage) 500 mg PO BID [facility] Last Admin: 03/26/18 09:48 Dose: 500 mg Multivitamins/Minerals (Therapeutic-M Tab) 1 tab PO 0800 [facility] Last Admin: 03/26/18 09:48 Dose: 1 tab Thiamine HCl (Vitamin B1 Tab) 100 mg PO DAILY [facility] Last Admin: 03/26/18 09:48 Dose: 100 mg Zinc Sulfate (Zinc Sulfate 220 Mg Cap) 220 mg PO DAILY [facility] Last Admin: 03/26/18 09:48 Dose: 220 mg - Labs Labs: 03/25/18 06:30 03/25/18 06:30 PT 12.5 SECONDS (9.4-12.5) 12/09/17 10:00 INR 1.09 (0.93-1.08) H 12/09/17 10:00 APTT 28.3 Seconds (25.1-36.5) 11/30/17 05:30 Attending/Attestation - Attestation I have personally seen and examined this patient.: Yes I have fully participated in the care of the patient.: Yes I have reviewed all pertinent clinical information, including history, physical exam and plan: Yes Notes (Text): 03/26/18 16:56 Medical record note made by the resident after discussion with my direction and input after the patient was personally seen and examined by me. I have reviewed the chart and agree that the record accurately reflects by personal performance of the history, physical exam, data review, and medical decision-making, in the course for the patient. I have also personally directed the plan of care. Patient is stable at his base line.There is no active medical issue.He is awaiting guardianship paper work for placement. Prognosis is guarded
[2018-03-27] MEDS: Insulin Reg-LOW-Coverage SC SCH ×4 (08:41→22:10)
--- NOTE | 2018-03-27 09:01 | CP.PCM.PN ---
<Rocael Bowie - Last Filed: 03/27/18 10:23> Subjective - Date & Time of Evaluation Date of Evaluation: 03/27/18 Time of Evaluation: 10:24 - Subjective Subjective: Patient seen and examined this AM. No acute events reported overnight. Patient denies chest pain, shortness of breath, abdominal pain, nausea, vomiting, weakness,numbness. Objective - Vital Signs/Intake and Output Vital Signs (last 24 hours): Temp Pulse Resp BP Pulse Ox 98.4 F 83 18 110/71 95 03/27/18 06:00 03/27/18 06:00 03/27/18 06:00 03/27/18 06:00 03/27/18 06:00 Intake and Output: 03/27/18 03/27/18 06:59 18:59 Intake Total 780 Balance 780 - Medications Medications: Current Medications Amlodipine Besylate (Norvasc) 10 mg PO DAILY [facility] Last Admin: 03/26/18 09:48 Dose: 10 mg Aspirin (Ecotrin) 81 mg PO DAILY [facility] Last Admin: 03/26/18 09:48 Dose: 81 mg Atorvastatin Calcium (Lipitor) 20 mg PO DIN [facility] Last Admin: 03/26/18 17:13 Dose: 20 mg Citalopram Hydrobromide (Celexa) 10 mg PO DAILY [facility] Last Admin: 03/26/18 09:48 Dose: 10 mg Folic Acid (Folic Acid) 1 mg PO DAILY [facility] Last Admin: 03/26/18 09:48 Dose: 1 mg Insulin Human Regular (Humulin R Low) 0 units SC [facility] PRN Reason: Protocol Last Admin: 03/27/18 08:41 Dose: Not Given Lisinopril (Zestril) 10 mg PO DAILY [facility] Last Admin: 03/26/18 09:49 Dose: 10 mg Metformin HCl (Glucophage) 500 mg PO BID [facility] Last Admin: 03/26/18 17:13 Dose: 500 mg Multivitamins/Minerals (Therapeutic-M Tab) 1 tab PO 0800 [facility] Last Admin: 03/26/18 09:48 Dose: 1 tab Thiamine HCl (Vitamin B1 Tab) 100 mg PO DAILY [facility] Last Admin: 03/26/18 09:48 Dose: 100 mg Zinc Sulfate (Zinc Sulfate 220 Mg Cap) 220 mg PO DAILY [facility] Last Admin: 03/26/18 09:48 Dose: 220 mg - Labs Labs: 03/25/18 06:30 03/25/18 06:30 PT 12.5 SECONDS (9.4-12.5) 12/09/17 10:00 INR 1.09 (0.93-1.08) H 12/09/17 10:00 APTT 28.3 Seconds (25.1-36.5) 11/30/17 05:30 - Constitutional Appears: Non-toxic, No Acute Distress - Head Exam Head Exam: ATRAUMATIC, NORMAL INSPECTION, NORMOCEPHALIC - Eye Exam Eye Exam: EOMI, PERRL - ENT Exam ENT Exam: Mucous Membranes Moist - Neck Exam Neck Exam: Full ROM - Respiratory Exam Respiratory Exam: Clear to Ausculation Bilateral, NORMAL BREATHING PATTERN. absent: Rales, Rhonchi, Wheezes - Cardiovascular Exam Cardiovascular Exam: REGULAR RHYTHM, +S1, +S2 - GI/Abdominal Exam GI & Abdominal Exam: Soft, Normal Bowel Sounds. absent: Tenderness - Extremities Exam Extremities Exam: Normal Capillary Refill. absent: Calf Tenderness - Neurological Exam Neurological Exam: Alert, Awake Neuro motor strength exam: Left Upper Extremity: 5, Right Upper Extremity: 5, Left Lower Extremity: 5, Right Lower Extremity: 5 - Psychiatric Exam Psychiatric exam: Flat Affect - Skin Skin Exam: Dry, Warm Assessment and Plan - Assessment and Plan (Free Text) Assessment: 57yo male unknown PMHx admitted for AMS, right hip cellulitis, multifocal pneumonia, influenza A, strep viridians bacteremia with findings of stroke on MRI - acute vs. 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 Patient was treated for bacteremia with IV abx. Patient continues to refuse testing at this time. Guardianship establishment pending. Plan: Altered mental status - Etiology: likely secondary to ischemic stroke residual deficits vs Metabolic Encephalopathy - Currently at baseline mentation which waxes and wanes - Patient mentation clinically unchanged, able to answer simple questions - Delirium precautions; PT - patient refusing to participate - ASA/Lipitor Coag negative Staphylococcus bacteremia - Last bld clx negative 12/04/17 with completion of 6 week course of antibiotics - Monitor WBC, ESR, CRP weekly - Echocardiogram unable to rule out vegetations, family is unavailable for consent for TAHIR Stage 1 decubitus ulcer-improving - Patient refuses to get out of bed to chair - Refusing PT - Skin breakdown improving - Continue with Q2 turns, Wound care consulted - Folic acid, Thiamine, Zinc daily Colonic mass - CT Abd/Pelvis showing colonic mass and hepatic lesions - GI consulted: follow recs - Flex sig/colonoscopy refused by patient at this time - Family unable to be contacted for consent Diabetes mellitus type 2 in non-obese - HgA1c is 7.4 - Continue ISS low - Metformin 500mg BID - Carb consistent diet HTN - Lisinopril 10 daily - Stable, continue to monitor Affective disorder - Celexa 10mg PO Daily Prophylaxis - No GI PPX indicated this time - SCDs Dispo: Patient lacks decision making capacity and is unable to comprehend his diagnosis, medical treatment, potential benefit and risk associated with and without treatment. Guardianship paperwork being processed followed by potential placement. Court scheduled for 05/05/2018 concerning guardianship Case and plan discussed with attending <Deanna Schumacher - Last Filed: 03/27/18 11:14> Objective - Vital Signs/Intake and Output Vital Signs (last 24 hours): Temp Pulse Resp BP Pulse Ox 98.4 F 83 18 110/71 95 03/27/18 06:00 03/27/18 09:36 03/27/18 06:00 03/27/18 09:36 03/27/18 06:00 Intake and Output: 03/27/18 03/27/18 06:59 18:59 Intake Total 780 Balance 780 - Medications Medications: Current Medications Amlodipine Besylate (Norvasc) 10 mg PO DAILY [facility] Last Admin: 03/27/18 09:35 Dose: 10 mg Aspirin (Ecotrin) 81 mg PO DAILY [facility] Last Admin: 03/27/18 09:37 Dose: 81 mg Atorvastatin Calcium (Lipitor) 20 mg PO DIN [facility] Last Admin: 03/26/18 17:13 Dose: 20 mg Citalopram Hydrobromide (Celexa) 10 mg PO DAILY [facility] Last Admin: 03/27/18 09:37 Dose: 10 mg Folic Acid (Folic Acid) 1 mg PO DAILY [facility] Last Admin: 03/27/18 09:35 Dose: 1 mg Insulin Human Regular (Humulin R Low) 0 units SC [facility] PRN Reason: Protocol Last Admin: 03/27/18 08:41 Dose: Not Given Lisinopril (Zestril) 10 mg PO DAILY [facility] Last Admin: 06/10/18 09:36 Dose: 10 mg Metformin HCl (Glucophage) 500 mg PO BID [facility] Last Admin: 03/27/18 09:36 Dose: 500 mg Multivitamins/Minerals (Therapeutic-M Tab) 1 tab PO 0800 [facility] Last Admin: 03/27/18 09:36 Dose: 1 tab Thiamine HCl (Vitamin B1 Tab) 100 mg PO DAILY [facility] Last Admin: 03/27/18 09:35 Dose: 100 mg Zinc Sulfate (Zinc Sulfate 220 Mg Cap) 220 mg PO DAILY [facility] Last Admin: 03/27/18 09:35 Dose: 220 mg - Labs Labs: 03/25/18 06:30 03/25/18 06:30 PT 12.5 SECONDS (9.4-12.5) 12/09/17 10:00 INR 1.09 (0.93-1.08) H 12/09/17 10:00 APTT 28.3 Seconds (25.1-36.5) 11/30/17 05:30 Attending/Attestation - Attestation I have personally seen and examined this patient.: Yes I have fully participated in the care of the patient.: Yes I have reviewed all pertinent clinical information, including history, physical exam and plan: Yes Notes (Text): 03/27/18 11:14 Medical record note made by the resident after discussion with my direction and input after the patient was personally seen and examined by me. I have reviewed the chart and agree that the record accurately reflects by personal performance of the history, physical exam, data review, and medical decision-making, in the course for the patient. I have also personally directed the plan of care . Patient is stable at base line.Mental status is at base line.he is awaiting for guardianship paper work for placement.He was encouraged to ambulate and also need frequent change of position to avoid decubitus ulcer. Prognosis is guarded
[2018-03-27] MEDS: Multivitamin With Minerals Tab PO SCH (09:36)
--- NOTE | 2018-03-27 13:58 | CP.PCM.PN ---
Subjective - Date & Time of Evaluation Date of Evaluation: 03/27/18 Time of Evaluation: 10:55 - Subjective Subjective: Afebrile, comfortable. Objective - Vital Signs/Intake and Output Vital Signs (last 24 hours): Temp Pulse Resp BP Pulse Ox 98.0 F 85 20 106/70 96 03/26/18 16:55 03/26/18 16:55 03/26/18 16:55 03/26/18 16:55 03/26/18 16:55 Intake and Output: 03/27/18 03/27/18 06:59 18:59 Intake Total 780 Balance 780 - Medications Medications: Current Medications Amlodipine Besylate (Norvasc) 10 mg PO DAILY [facility] Last Admin: 03/26/18 09:48 Dose: 10 mg Aspirin (Ecotrin) 81 mg PO DAILY [facility] Last Admin: 03/26/18 09:48 Dose: 81 mg Atorvastatin Calcium (Lipitor) 20 mg PO DIN [facility] Last Admin: 03/26/18 17:13 Dose: 20 mg Citalopram Hydrobromide (Celexa) 10 mg PO DAILY [facility] Last Admin: 03/26/18 09:48 Dose: 10 mg Folic Acid (Folic Acid) 1 mg PO DAILY [facility] Last Admin: 03/26/18 09:48 Dose: 1 mg Insulin Human Regular (Humulin R Low) 0 units SC [facility] PRN Reason: Protocol Last Admin: 03/26/18 22:19 Dose: Not Given Lisinopril (Zestril) 10 mg PO DAILY [facility] Last Admin: 03/26/18 09:49 Dose: 10 mg Metformin HCl (Glucophage) 500 mg PO BID [facility] Last Admin: 03/26/18 17:13 Dose: 500 mg Multivitamins/Minerals (Therapeutic-M Tab) 1 tab PO 0800 [facility] Last Admin: 03/26/18 09:48 Dose: 1 tab Thiamine HCl (Vitamin B1 Tab) 100 mg PO DAILY [facility] Last Admin: 03/26/18 09:48 Dose: 100 mg Zinc Sulfate (Zinc Sulfate 220 Mg Cap) 220 mg PO DAILY [facility] Last Admin: 03/26/18 09:48 Dose: 220 mg - Labs Labs: 03/25/18 06:30 03/25/18 06:30 PT 12.5 SECONDS (9.4-12.5) 12/09/17 10:00 INR 1.09 (0.93-1.08) H 12/09/17 10:00 APTT 28.3 Seconds (25.1-36.5) 11/30/17 05:30 - Constitutional Appears: Chronically Ill - Head Exam Head Exam: NORMAL INSPECTION - Neck Exam Neck Exam: absent: Meningismus - Respiratory Exam Respiratory Exam: Decreased Breath Sounds - Cardiovascular Exam Cardiovascular Exam: +S1, +S2 - GI/Abdominal Exam GI & Abdominal Exam: Soft. absent: Tenderness Assessment and Plan - Assessment and Plan (Free Text) Plan: Assessment S/P sepsis due to strep viridans and CoNS bacteremia from right gluteal and back cellulitis S/P multifocal HCAP on top of Influenza A infection S/P Sammie infection of sacral area as well peripheral vascular disease Plan patient had completed 42 days of antibiotics on this admission - continue to monitor clinically off antibiotics since he is at risk for nosocomial infections patient is still waiting for guardianship
[2018-03-28 06:51] LABS: HEMOGLOBIN 11.3 g/dL (14.0-18.0); MEAN CELL VOLUME 83.3 fl (80.0-105.0); MEAN CORPUSCULAR HGB CONC 32.5 g/dl (31.0-37.0); MEAN PLATELET VOLUME 9.4 fl (7.0-11.0); RBC 4.18 10^6/uL (3.5-6.1); RED CELL DISTRIBUTION WIDTH 13.8 % (11.5-14.5); WHITE BLOOD COUNT 9.4 10^3/ul (4.5-11.0)
--- NOTE | 2018-03-28 07:08 | CP.PCM.PN ---
<Rocael Bowie - Last Filed: 03/28/18 09:27> Subjective - Date & Time of Evaluation Date of Evaluation: 03/28/18 Time of Evaluation: 07:05 - Subjective Subjective: Patient seen and examined this AM. No acute events reported overnight. No complaints per patient. Clinically unchanged. Objective - Vital Signs/Intake and Output Vital Signs (last 24 hours): Temp Pulse Resp BP Pulse Ox 97.4 F L 66 19 107/72 95 03/27/18 17:30 03/27/18 17:30 03/27/18 17:30 03/27/18 17:30 03/27/18 17:30 Intake and Output: 03/28/18 03/28/18 06:59 18:59 Intake Total 780 Balance 780 - Medications Medications: Current Medications Amlodipine Besylate (Norvasc) 10 mg PO DAILY [facility] Last Admin: 03/27/18 09:35 Dose: 10 mg Aspirin (Ecotrin) 81 mg PO DAILY [facility] Last Admin: 03/27/18 09:37 Dose: 81 mg Atorvastatin Calcium (Lipitor) 20 mg PO DIN [facility] Last Admin: 03/27/18 16:54 Dose: 20 mg Citalopram Hydrobromide (Celexa) 10 mg PO DAILY [facility] Last Admin: 03/27/18 09:37 Dose: 10 mg Folic Acid (Folic Acid) 1 mg PO DAILY [facility] Last Admin: 03/27/18 09:35 Dose: 1 mg Insulin Human Regular (Humulin R Low) 0 units SC ACHS [facility] PRN Reason: Protocol Last Admin: 03/27/18 22:10 Dose: Not Given Lisinopril (Zestril) 10 mg PO DAILY [facility] Last Admin: 03/27/18 09:36 Dose: 10 mg Metformin HCl (Glucophage) 500 mg PO BID [facility] Last Admin: 03/27/18 17:00 Dose: 500 mg Multivitamins/Minerals (Therapeutic-M Tab) 1 tab PO 0800 [facility] Last Admin: 03/27/18 09:36 Dose: 1 tab Thiamine HCl (Vitamin B1 Tab) 100 mg PO DAILY [facility] Last Admin: 03/27/18 09:35 Dose: 100 mg Zinc Sulfate (Zinc Sulfate 220 Mg Cap) 220 mg PO DAILY [facility] Last Admin: 03/27/18 09:35 Dose: 220 mg - Labs Labs: 03/25/18 06:30 03/25/18 06:30 PT 12.5 SECONDS (9.4-12.5) 12/09/17 10:00 INR 1.09 (0.93-1.08) H 12/09/17 10:00 APTT 28.3 Seconds (25.1-36.5) 11/30/17 05:30 - Constitutional Appears: Non-toxic, No Acute Distress - Head Exam Head Exam: ATRAUMATIC, NORMAL INSPECTION, NORMOCEPHALIC - Eye Exam Eye Exam: EOMI, PERRL - ENT Exam ENT Exam: Mucous Membranes Moist - Respiratory Exam Respiratory Exam: Clear to Ausculation Bilateral, NORMAL BREATHING PATTERN. absent: Rhonchi, Wheezes - Cardiovascular Exam Cardiovascular Exam: REGULAR RHYTHM, +S1, +S2 - GI/Abdominal Exam GI & Abdominal Exam: Soft, Normal Bowel Sounds - Extremities Exam Extremities Exam: Normal Capillary Refill. absent: Pedal Edema, Tenderness - Neurological Exam Neurological Exam: Alert, Awake - Psychiatric Exam Psychiatric exam: Flat Affect - Skin Skin Exam: Dry, Warm Assessment and Plan - Assessment and Plan (Free Text) Assessment: 57yo male unknown PMHx admitted for AMS, right hip cellulitis, multifocal pneumonia, influenza A, strep viridians bacteremia with findings of stroke on MRI - acute vs. 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 Patient was treated for bacteremia with IV abx. Patient continues to refuse testing at this time. Guardianship establishment pending. Plan: Altered mental status - Currently at baseline mentation which waxes and wanes - Patient mentation clinically unchanged, able to answer simple questions - Delirium precautions; PT - patient refusing to participate - ASA/Lipitor Coag negative Staphylococcus bacteremia - Last bld clx negative 12/04/17 with completion of 6 week course of antibiotics - Monitor WBC, ESR, CRP weekly - Echocardiogram unable to rule out vegetations, family is unavailable for consent for TAHIR Stage 1 decubitus ulcer-improving - Patient refuses to get out of bed to chair - Refusing PT - Skin breakdown improving - Continue with Q2 turns, Wound care consulted - Folic acid, Thiamine, Zinc daily Colonic mass - CT Abd/Pelvis showing colonic mass and hepatic lesions - GI consulted: follow recs - Flex sig/colonoscopy refused by patient at this time - Family unable to be contacted for consent Diabetes mellitus type 2 in non-obese - Continue ISS low - Metformin 500mg BID - Monitor glucose - Carb consistent diet HTN - Lisinopril 10 daily - Stable, continue to monitor Affective disorder - Celexa 10mg PO Daily Prophylaxis - Patient tolerating meals, no need for GI ppx - SCDs Dispo: Patient lacks decision making capacity and is unable to comprehend his diagnosis, medical treatment, potential benefit and risk associated with and without treatment. Guardianship paperwork being processed followed by potential placement. Court scheduled for 05/05/2018 concerning guardianship Case and plan discussed with attending <Deanna Schumacher - Last Filed: 03/28/18 15:17> Objective - Vital Signs/Intake and Output Vital Signs (last 24 hours): Temp Pulse Resp BP Pulse Ox 98.7 F 91 H 20 103/69 96 03/28/18 08:35 03/28/18 10:00 03/28/18 08:35 03/28/18 10:00 03/28/18 08:35 Intake and Output: 03/28/18 03/28/18 06:59 18:59 Intake Total 780 0 Balance 780 0 - Medications Medications: Current Medications Amlodipine Besylate (Norvasc) 10 mg PO DAILY [facility] Last Admin: 03/28/18 10:00 Dose: 10 mg Aspirin (Ecotrin) 81 mg PO DAILY [facility] Last Admin: 03/28/18 10:00 Dose: 81 mg Atorvastatin Calcium (Lipitor) 20 mg PO DIN [facility] Last Admin: 03/27/18 16:54 Dose: 20 mg Citalopram Hydrobromide (Celexa) 10 mg PO DAILY [facility] Last Admin: 03/28/18 10:00 Dose: 10 mg Folic Acid (Folic Acid) 1 mg PO DAILY [facility] Last Admin: 03/28/18 10:00 Dose: 1 mg Sodium Chloride (Sodium Chloride 0.9%) 1,000 mls @ 150 mls/hr IV .Q6H40M [facility] Last Admin: 03/28/18 11:05 Dose: 150 mls/hr Insulin Human Regular (Humulin R Low) 0 units SC [facility] PRN Reason: Protocol Last Admin: 03/28/18 14:16 Dose: 2 units Lisinopril (Zestril) 10 mg PO DAILY [facility] Last Admin: 03/28/18 10:00 Dose: 10 mg Metformin HCl (Glucophage) 500 mg PO BID [facility] Last Admin: 03/28/18 09:59 Dose: 500 mg Multivitamins/Minerals (Therapeutic-M Tab) 1 tab PO 0800 [facility] Last Admin: 03/28/18 10:00 Dose: 1 tab Ondansetron HCl (Zofran Inj) 4 mg IVP Q6H PRN PRN Reason: Nausea/Vomiting Last Admin: 03/28/18 11:06 Dose: 4 mg Thiamine HCl (Vitamin B1 Tab) 100 mg PO DAILY [facility] Last Admin: 03/28/18 09:59 Dose: 100 mg Zinc Sulfate (Zinc Sulfate 220 Mg Cap) 220 mg PO DAILY [facility] Last Admin: 03/28/18 10:00 Dose: 220 mg - Labs Labs: 03/28/18 05:30 03/28/18 10:19 PT 12.5 SECONDS (9.4-12.5) 12/09/17 10:00 INR 1.09 (0.93-1.08) H 12/09/17 10:00 APTT 28.3 Seconds (25.1-36.5) 11/30/17 05:30 Attending/Attestation - Attestation I have personally seen and examined this patient.: Yes I have fully participated in the care of the patient.: Yes I have reviewed all pertinent clinical information, including history, physical exam and plan: Yes Notes (Text): 03/28/18 15:14 Medical record note made by the resident after discussion with my direction and input after the patient was personally seen and examined by me. I have reviewed the chart and agree that the record accurately reflects by personal performance of the history, physical exam, data review, and medical decision-making, in the course for the patient. I have also personally directed the plan of care. 57 yrs old male , S/P sepsis due to strep viridans and CoNS bacteremia from right gluteal and back cellulitis, S/P multifocal HCAP on top of Influenza A infection and S/P Sammie infection of sacral area as well.Mental status is at base line , had episode of vomiting today but feeling better.Abdominal examination is benign.We will monitor. Patient is awaiting for placement. Prognosis is guarded.
[2018-03-28] MEDS: Insulin Reg-LOW-Coverage SC SCH ×4 (08:01→23:00)
[2018-03-28] MEDS: Multivitamin With Minerals Tab PO SCH (10:00)
[2018-03-28] MEDS: Sodium Chloride 0.9% 1,000 ML IV SCH ×2 (11:05→18:50)
--- NOTE | 2018-03-28 11:30 | CARD ---
APPROVED REPORT EKG Measurement Heart [id number] <Conclusion> Sinus tachycardia Possible Inferior infarct, age undetermined Abnormal ECG
[2018-03-28 11:43] LABS: ALB/GLOB RATIO 1.4 (1.1-1.8); ALT/SGPT 35 U/L (7-56); AST/SGOT 80 U/L (17-59); BLOOD UREA NITROGEN 18 mg/dL (7-21); CALCIUM 9.5 mg/dL (8.4-10.5); GFR NON-AFRICAN AMERICAN > 60
--- NOTE | 2018-03-28 15:08 | CP.PCM.PN ---
Subjective - Date & Time of Evaluation Date of Evaluation: 03/28/18 Time of Evaluation: 11:50 - Subjective Subjective: Afebrile, comfortable. Objective - Vital Signs/Intake and Output Vital Signs (last 24 hours): Temp Pulse Resp BP Pulse Ox 98.7 F 91 H 20 103/69 96 03/28/18 08:35 03/28/18 10:00 03/28/18 08:35 03/28/18 10:00 03/28/18 08:35 Intake and Output: 03/28/18 03/28/18 06:59 18:59 Intake Total 780 Balance 780 - Medications Medications: Current Medications Amlodipine Besylate (Norvasc) 10 mg PO DAILY [facility] Last Admin: 03/28/18 10:00 Dose: 10 mg Aspirin (Ecotrin) 81 mg PO DAILY [facility] Last Admin: 03/28/18 10:00 Dose: 81 mg Atorvastatin Calcium (Lipitor) 20 mg PO DIN [facility] Last Admin: 03/27/18 16:54 Dose: 20 mg Citalopram Hydrobromide (Celexa) 10 mg PO DAILY [facility] Last Admin: 03/28/18 10:00 Dose: 10 mg Folic Acid (Folic Acid) 1 mg PO DAILY [facility] Last Admin: 03/28/18 10:00 Dose: 1 mg Sodium Chloride (Sodium Chloride 0.9%) 1,000 mls @ 150 mls/hr IV .Q6H40M [facility] Insulin Human Regular (Humulin R Low) 0 units SC ACHS [facility] PRN Reason: Protocol Last Admin: 03/28/18 08:01 Dose: Not Given Lisinopril (Zestril) 10 mg PO DAILY [facility] Last Admin: 03/28/18 10:00 Dose: 10 mg Metformin HCl (Glucophage) 500 mg PO BID [facility] Last Admin: 03/28/18 09:59 Dose: 500 mg Multivitamins/Minerals (Therapeutic-M Tab) 1 tab PO 0800 [facility] Last Admin: 03/28/18 10:00 Dose: 1 tab Ondansetron HCl (Zofran Inj) 4 mg IVP Q6H PRN PRN Reason: Nausea/Vomiting Thiamine HCl (Vitamin B1 Tab) 100 mg PO DAILY [facility] Last Admin: 03/28/18 09:59 Dose: 100 mg Zinc Sulfate (Zinc Sulfate 220 Mg Cap) 220 mg PO DAILY [facility] Last Admin: 03/28/18 10:00 Dose: 220 mg - Labs Labs: 03/28/18 05:30 03/25/18 06:30 PT 12.5 SECONDS (9.4-12.5) 12/09/17 10:00 INR 1.09 (0.93-1.08) H 12/09/17 10:00 APTT 28.3 Seconds (25.1-36.5) 11/30/17 05:30 - Constitutional Appears: Non-toxic, Chronically Ill - Head Exam Head Exam: NORMAL INSPECTION - Respiratory Exam Respiratory Exam: Decreased Breath Sounds - Cardiovascular Exam Cardiovascular Exam: +S1, +S2 - GI/Abdominal Exam GI & Abdominal Exam: Soft. absent: Tenderness Assessment and Plan - Assessment and Plan (Free Text) Plan: Assessment S/P sepsis due to strep viridans and CoNS bacteremia from right gluteal and back cellulitis S/P multifocal HCAP on top of Influenza A infection S/P Sammie infection of sacral area as well peripheral vascular disease Plan patient had completed 42 days of antibiotics on this admission - continue to monitor clinically off antibiotics since he is at risk for hospital-acquired infections patient is still waiting for guardianship
[2018-03-29] MEDS: Sodium Chloride 0.9% 1,000 ML IV SCH ×3 (04:29→20:15)
[2018-03-29] MEDS: Insulin Reg-LOW-Coverage SC SCH ×4 (08:50→22:00)
[2018-03-29] MEDS: Multivitamin With Minerals Tab PO SCH (10:24)
--- NOTE | 2018-03-29 13:05 | CP.PCM.PN ---
<Rocael Bowie - Last Filed: 03/29/18 13:02> Subjective - Date & Time of Evaluation Date of Evaluation: 03/29/18 Time of Evaluation: 13:02 - Subjective Subjective: Patient seen and examined this AM. No acute events reported overnight. Patient clinically unchanged. Objective - Vital Signs/Intake and Output Vital Signs (last 24 hours): Temp Pulse Resp BP Pulse Ox 97.6 F 84 20 121/88 98 03/29/18 07:45 03/29/18 07:45 03/29/18 07:45 03/29/18 10:24 03/29/18 07:45 Intake and Output: 03/29/18 03/29/18 06:59 18:59 Intake Total 120 Balance 120 - Medications Medications: Current Medications Amlodipine Besylate (Norvasc) 10 mg PO DAILY [facility] Last Admin: 03/29/18 10:24 Dose: 10 mg Aspirin (Ecotrin) 81 mg PO DAILY [facility] Last Admin: 03/29/18 10:23 Dose: 81 mg Atorvastatin Calcium (Lipitor) 20 mg PO DIN [facility] Last Admin: 03/28/18 17:03 Dose: 20 mg Citalopram Hydrobromide (Celexa) 10 mg PO DAILY [facility] Last Admin: 03/29/18 10:23 Dose: 10 mg Folic Acid (Folic Acid) 1 mg PO DAILY [facility] Last Admin: 03/29/18 10:23 Dose: 1 mg Sodium Chloride (Sodium Chloride 0.9%) 1,000 mls @ 150 mls/hr IV .Q6H40M [facility] Last Admin: 03/29/18 04:29 Dose: Not Given Insulin Human Regular (Humulin R Low) 0 units SC ACHS [facility] PRN Reason: Protocol Last Admin: 03/29/18 08:50 Dose: Not Given Lisinopril (Zestril) 10 mg PO DAILY [facility] Last Admin: 03/29/18 10:24 Dose: 10 mg Metformin HCl (Glucophage) 500 mg PO BID [facility] Last Admin: 03/29/18 10:24 Dose: 500 mg Multivitamins/Minerals (Therapeutic-M Tab) 1 tab PO 0800 [facility] Last Admin: 03/29/18 10:24 Dose: Not Given Ondansetron HCl (Zofran Inj) 4 mg IVP Q6H PRN PRN Reason: Nausea/Vomiting Last Admin: 03/28/18 11:06 Dose: 4 mg Thiamine HCl (Vitamin B1 Tab) 100 mg PO DAILY [facility] Last Admin: 03/29/18 10:24 Dose: 100 mg Zinc Sulfate (Zinc Sulfate 220 Mg Cap) 220 mg PO DAILY [facility] Last Admin: 03/29/18 10:24 Dose: 220 mg - Labs Labs: 03/28/18 05:30 03/28/18 10:19 PT 12.5 SECONDS (9.4-12.5) 12/09/17 10:00 INR 1.09 (0.93-1.08) H 12/09/17 10:00 APTT 28.3 Seconds (25.1-36.5) 11/30/17 05:30 - Constitutional Appears: No Acute Distress - Head Exam Head Exam: ATRAUMATIC, NORMAL INSPECTION, NORMOCEPHALIC - Eye Exam Eye Exam: EOMI, PERRL - Respiratory Exam Respiratory Exam: Clear to Ausculation Bilateral, NORMAL BREATHING PATTERN. absent: Rales, Rhonchi, Wheezes - Cardiovascular Exam Cardiovascular Exam: REGULAR RHYTHM, +S1, +S2 - GI/Abdominal Exam GI & Abdominal Exam: Soft, Normal Bowel Sounds. absent: Guarding, Rigid, Tenderness - Extremities Exam Extremities Exam: Full ROM. absent: Calf Tenderness, Pedal Edema - Neurological Exam Neurological Exam: Alert, Awake Neuro motor strength exam: Left Upper Extremity: 5, Right Upper Extremity: 5, Left Lower Extremity: 5, Right Lower Extremity: 5 - Psychiatric Exam Psychiatric exam: Flat Affect - Skin Skin Exam: Dry, Warm Assessment and Plan - Assessment and Plan (Free Text) Assessment: 57yo male unknown PMHx admitted for AMS, right hip cellulitis, multifocal pneumonia, influenza A, strep viridians bacteremia with findings of stroke on MRI - acute vs. 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 Patient was treated for bacteremia with IV abx. Patient continues to refuse testing at this time. Guardianship establishment pending. Plan: Altered mental status - Currently at baseline mentation which waxes and wanes - Patient mentation clinically unchanged, able to answer simple questions - Delirium precautions; PT - patient refusing to participate - ASA/Lipitor Coag negative Staphylococcus bacteremia - Last bld clx negative 12/04/17 with completion of 6 week course of antibiotics - Monitor WBC, ESR, CRP weekly - Echocardiogram unable to rule out vegetations, family is unavailable for consent for TAHIR Stage 1 decubitus ulcer-improving - Patient refuses to get out of bed to chair - Refusing PT - Skin breakdown improving - Continue with Q2 turns, Wound care consulted - Folic acid, Thiamine, Zinc daily Colonic mass - CT Abd/Pelvis showing colonic mass and hepatic lesions - GI consulted: follow recs - Flex sig/colonoscopy refused by patient at this time - Family unable to be contacted for consent Diabetes mellitus type 2 in non-obese - Continue ISS low - Metformin 500mg BID - Monitor glucose - Carb consistent diet HTN - Lisinopril 10 daily - Stable, continue to monitor Affective disorder - Celexa 10mg PO Daily Prophylaxis - Patient tolerating meals, no need for GI ppx - SCDs Dispo: Patient lacks decision making capacity and is unable to comprehend his diagnosis, medical treatment, potential benefit and risk associated with and without treatment. Guardianship paperwork being processed followed by potential placement. Court scheduled for 05/05/2018 concerning guardianship Case and plan discussed with attending <Deanna Schumacher - Last Filed: 03/29/18 17:33> Objective - Vital Signs/Intake and Output Vital Signs (last 24 hours): Temp Pulse Resp BP Pulse Ox 97.6 F 84 20 121/88 98 03/29/18 07:45 03/29/18 07:45 03/29/18 07:45 03/29/18 10:24 03/29/18 07:45 Intake and Output: 03/29/18 03/29/18 06:59 18:59 Intake Total 120 Balance 120 - Medications Medications: Current Medications Amlodipine Besylate (Norvasc) 10 mg PO DAILY [facility] Last Admin: 03/29/18 10:24 Dose: 10 mg Aspirin (Ecotrin) 81 mg PO DAILY [facility] Last Admin: 03/29/18 10:23 Dose: 81 mg Atorvastatin Calcium (Lipitor) 20 mg PO DIN [facility] Last Admin: 03/28/18 17:03 Dose: 20 mg Citalopram Hydrobromide (Celexa) 10 mg PO DAILY [facility] Last Admin: 03/29/18 10:23 Dose: 10 mg Folic Acid (Folic Acid) 1 mg PO DAILY [facility] Last Admin: 03/29/18 10:23 Dose: 1 mg Sodium Chloride (Sodium Chloride 0.9%) 1,000 mls @ 150 mls/hr IV .Q6H40M [facility] Last Admin: 03/29/18 13:14 Dose: Not Given Insulin Human Regular (Humulin R Low) 0 units SC ACHS [facility] PRN Reason: Protocol Last Admin: 03/29/18 13:14 Dose: Not Given Lisinopril (Zestril) 10 mg PO DAILY [facility] Last Admin: 03/29/18 10:24 Dose: 10 mg Metformin HCl (Glucophage) 500 mg PO BID [facility] Last Admin: 03/29/18 10:24 Dose: 500 mg Multivitamins/Minerals (Therapeutic-M Tab) 1 tab PO 0800 [facility] Last Admin: 03/29/18 10:24 Dose: Not Given Ondansetron HCl (Zofran Inj) 4 mg IVP Q6H PRN PRN Reason: Nausea/Vomiting Last Admin: 03/28/18 11:06 Dose: 4 mg Thiamine HCl (Vitamin B1 Tab) 100 mg PO DAILY [facility] Last Admin: 03/29/18 10:24 Dose: 100 mg Zinc Sulfate (Zinc Sulfate 220 Mg Cap) 220 mg PO DAILY [facility] Last Admin: 03/29/18 10:24 Dose: 220 mg - Labs Labs: 03/28/18 05:30 03/28/18 10:19 PT 12.5 SECONDS (9.4-12.5) 12/09/17 10:00 INR 1.09 (0.93-1.08) H 12/09/17 10:00 APTT 28.3 Seconds (25.1-36.5) 11/30/17 05:30 Attending/Attestation - Attestation I have personally seen and examined this patient.: Yes I have fully participated in the care of the patient.: Yes I have reviewed all pertinent clinical information, including history, physical exam and plan: Yes Notes (Text): 03/29/18 17:32 Medical record note made by the resident after discussion with my direction and input after the patient was personally seen and examined by me. I have reviewed the chart and agree that the record accurately reflects by personal performance of the history, physical exam, data review, and medical decision-making, in the course for the patient. I have also personally directed the plan of care.
--- NOTE | 2018-03-29 17:31 | CP.PCM.PN ---
Subjective - Date & Time of Evaluation Date of Evaluation: 03/29/18 Time of Evaluation: 10:25 - Subjective Subjective: No fevers, not in distress. Objective - Vital Signs/Intake and Output Vital Signs (last 24 hours): Temp Pulse Resp BP Pulse Ox 98.2 F 103 H 19 102/73 97 03/28/18 18:00 03/28/18 18:00 03/28/18 18:00 03/28/18 18:00 03/28/18 18:00 Intake and Output: 03/29/18 03/29/18 06:59 18:59 Intake Total 120 Balance 120 - Medications Medications: Current Medications Amlodipine Besylate (Norvasc) 10 mg PO DAILY [facility] Last Admin: 03/28/18 10:00 Dose: 10 mg Aspirin (Ecotrin) 81 mg PO DAILY [facility] Last Admin: 03/28/18 10:00 Dose: 81 mg Atorvastatin Calcium (Lipitor) 20 mg PO DIN [facility] Last Admin: 03/28/18 17:03 Dose: 20 mg Citalopram Hydrobromide (Celexa) 10 mg PO DAILY [facility] Last Admin: 03/28/18 10:00 Dose: 10 mg Folic Acid (Folic Acid) 1 mg PO DAILY [facility] Last Admin: 03/28/18 10:00 Dose: 1 mg Sodium Chloride (Sodium Chloride 0.9%) 1,000 mls @ 150 mls/hr IV .Q6H40M [facility] Last Admin: 03/29/18 04:29 Dose: Not Given Insulin Human Regular (Humulin R Low) 0 units SC ACHS [facility] PRN Reason: Protocol Last Admin: 03/28/18 23:00 Dose: Not Given Lisinopril (Zestril) 10 mg PO DAILY [facility] Last Admin: 03/28/18 10:00 Dose: 10 mg Metformin HCl (Glucophage) 500 mg PO BID [facility] Last Admin: 03/28/18 17:03 Dose: 500 mg Multivitamins/Minerals (Therapeutic-M Tab) 1 tab PO 0800 [facility] Last Admin: 03/28/18 10:00 Dose: 1 tab Ondansetron HCl (Zofran Inj) 4 mg IVP Q6H PRN PRN Reason: Nausea/Vomiting Last Admin: 03/28/18 11:06 Dose: 4 mg Thiamine HCl (Vitamin B1 Tab) 100 mg PO DAILY [facility] Last Admin: 03/28/18 09:59 Dose: 100 mg Zinc Sulfate (Zinc Sulfate 220 Mg Cap) 220 mg PO DAILY [facility] Last Admin: 03/28/18 10:00 Dose: 220 mg - Labs Labs: 03/28/18 05:30 03/28/18 10:19 PT 12.5 SECONDS (9.4-12.5) 12/09/17 10:00 INR 1.09 (0.93-1.08) H 12/09/17 10:00 APTT 28.3 Seconds (25.1-36.5) 11/30/17 05:30 - Constitutional Appears: Chronically Ill - Head Exam Head Exam: NORMAL INSPECTION - Respiratory Exam Respiratory Exam: Decreased Breath Sounds - Cardiovascular Exam Cardiovascular Exam: +S1, +S2 - GI/Abdominal Exam GI & Abdominal Exam: Soft. absent: Tenderness Assessment and Plan - Assessment and Plan (Free Text) Plan: Assessment S/P sepsis due to strep viridans and CoNS bacteremia from right gluteal and back cellulitis S/P multifocal HCAP on top of Influenza A infection S/P Sammie infection of sacral area as well peripheral vascular disease Plan patient had completed 42 days of antibiotics on this admission - continue to monitor clinically off antibiotics since he is at risk for healthcare- associated infections patient is still waiting for guardianship
--- NOTE | 2018-03-30 07:51 | CP.PCM.PN ---
<Rocael Bowie - Last Filed: 03/30/18 14:25> Subjective - Date & Time of Evaluation Date of Evaluation: 03/30/18 Time of Evaluation: 07:49 - Subjective Subjective: Patient seen and evaluated. No acute events overnight. Clinically unchanged. Patient with no complaints questions concerns. Objective - Vital Signs/Intake and Output Vital Signs (last 24 hours): Temp Pulse Resp BP Pulse Ox 97.8 F 79 19 109/64 97 03/29/18 18:00 03/29/18 18:00 03/29/18 18:00 03/29/18 18:00 03/29/18 18:00 Intake and Output: 03/30/18 03/30/18 06:59 18:59 Intake Total 120 Balance 120 - Medications Medications: Current Medications Amlodipine Besylate (Norvasc) 10 mg PO DAILY [facility] BEDS AT [facility] Last Admin: 03/29/18 10:24 Dose: 10 mg Aspirin (Ecotrin) 81 mg PO DAILY [facility] 234 BEDS AT [facility] Last Admin: 03/29/18 10:23 Dose: 81 mg Atorvastatin Calcium (Lipitor) 20 mg PO DIN [facility]S [facility] 234 BEDS AT [facility] Last Admin: 03/29/18 17:46 Dose: 20 mg Citalopram Hydrobromide (Celexa) 10 mg PO DAILY [facility] 234 BEDS AT [facility] Last Admin: 03/29/18 10:23 Dose: 10 mg Folic Acid (Folic Acid) 1 mg PO DAILY [facility] 234 BEDS AT [facility] Last Admin: 03/29/18 10:23 Dose: 1 mg Sodium Chloride (Sodium Chloride 0.9%) 1,000 mls @ 150 mls/hr IV .Q6H40M [facility]S [facility]CLUDE 234 BEDS AT [facility] Last Admin: 03/29/18 20:15 Dose: Not Given Insulin Human Regular (Humulin R Low) 0 units SC ACHS [facility]S [facility]CLUDE 234 BEDS AT [facility] PRN Reason: Protocol Last Admin: 03/29/18 22:00 Dose: Not Given Lisinopril (Zestril) 10 mg PO DAILY [facility] 234 BEDS AT [facility] Last Admin: 03/29/18 10:24 Dose: 10 mg Metformin HCl (Glucophage) 500 mg PO BID [facility] 234 BEDS AT [facility] Last Admin: 03/29/18 17:46 Dose: 500 mg Multivitamins/Minerals (Therapeutic-M Tab) 1 tab PO 0800 [facility] 234 BEDS AT [facility] Last Admin: 03/29/18 10:24 Dose: Not Given Ondansetron HCl (Zofran Inj) 4 mg IVP Q6H PRN PRN Reason: Nausea/Vomiting Last Admin: 03/28/18 11:06 Dose: 4 mg Thiamine HCl (Vitamin B1 Tab) 100 mg PO DAILY [facility] 234 BEDS AT [facility] Last Admin: 03/29/18 10:24 Dose: 100 mg Zinc Sulfate (Zinc Sulfate 220 Mg Cap) 220 mg PO DAILY [facility] 234 BEDS AT [facility] Last Admin: 03/29/18 10:24 Dose: 220 mg - Labs Labs: 03/28/18 05:30 03/28/18 10:19 PT 12.5 SECONDS (9.4-12.5) 12/09/17 10:00 INR 1.09 (0.93-1.08) H 12/09/17 10:00 APTT 28.3 Seconds (25.1-36.5) 11/30/17 05:30 - Constitutional Appears: No Acute Distress - Head Exam Head Exam: ATRAUMATIC, NORMAL INSPECTION, NORMOCEPHALIC - Eye Exam Eye Exam: EOMI, PERRL - ENT Exam ENT Exam: Mucous Membranes Moist - Respiratory Exam Respiratory Exam: Clear to Ausculation Bilateral, NORMAL BREATHING PATTERN. absent: Rales, Rhonchi, Wheezes - Cardiovascular Exam Cardiovascular Exam: REGULAR RHYTHM, +S1, +S2 - GI/Abdominal Exam GI & Abdominal Exam: Soft, Normal Bowel Sounds - Neurological Exam Neurological Exam: Alert, Awake Additional comments: Motor and sensory grossly intact, able to move all four extremities past midline - Psychiatric Exam Psychiatric exam: Flat Affect - Skin Skin Exam: Dry, Warm Assessment and Plan - Assessment and Plan (Free Text) Assessment: 57yo male unknown PMHx admitted for AMS, right hip cellulitis, multifocal pneumonia, influenza A, strep viridians bacteremia with findings of stroke on MRI - acute vs. 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 Patient was treated for bacteremia with IV abx. Patient continues to refuse testing at this time. Guardianship establishment pending. Plan: Altered mental status - Currently at baseline mentation which waxes and wanes - Patient mentation clinically unchanged, able to answer simple questions - Delirium precautions; PT - patient refusing to participate - ASA/Lipitor Coag negative Staphylococcus bacteremia - Last bld clx negative 12/04/17 with completion of 6 week course of antibiotics - Monitor WBC, ESR, CRP weekly - Echocardiogram unable to rule out vegetations, family is unavailable for consent for TAHIR Stage 1 decubitus ulcer-improving - Patient refuses to get out of bed to chair - Refusing PT - Skin breakdown improving - Continue with Q2 turns, Wound care consulted - Folic acid, Thiamine, Zinc daily Colonic mass - CT Abd/Pelvis showing colonic mass and hepatic lesions - GI consulted: follow recs - Flex sig/colonoscopy refused by patient at this time - Family unable to be contacted for consent Diabetes mellitus type 2 in non-obese - Continue ISS low - Metformin 500mg BID - Monitor glucose - Carb consistent diet HTN - Lisinopril 10 daily - Stable, continue to monitor Affective disorder - Celexa 10mg PO Daily Prophylaxis - Patient tolerating meals, no need for GI ppx - SCDs Dispo: Patient lacks decision making capacity and is unable to comprehend his diagnosis, medical treatment, potential benefit and risk associated with and without treatment. Guardianship paperwork being processed followed by potential placement. Court scheduled for 05/05/2018 concerning guardianship Case and plan discussed with attending <Deanna Schumacher - Last Filed: 03/30/18 14:30> Objective - Vital Signs/Intake and Output Vital Signs (last 24 hours): Temp Pulse Resp BP Pulse Ox 97.7 F 87 20 102/67 98 03/30/18 06:00 03/30/18 10:00 03/30/18 06:00 03/30/18 10:00 03/30/18 06:00 Intake and Output: 03/30/18 03/30/18 06:59 18:59 Intake Total 120 Balance 120 - Medications Medications: Current Medications Amlodipine Besylate (Norvasc) 10 mg PO DAILY [facility]CLUDE 234 BEDS AT [facility] Last Admin: 03/30/18 09:56 Dose: 10 mg Aspirin (Ecotrin) 81 mg PO DAILY [facility]CLUDE 234 BEDS AT [facility] Last Admin: 03/30/18 09:57 Dose: 81 mg Atorvastatin Calcium (Lipitor) 20 mg PO DIN COUNTS INCLUDE 234 BEDS AT [facility] Last Admin: 03/29/18 17:46 Dose: 20 mg Citalopram Hydrobromide (Celexa) 10 mg PO DAILY [facility]CLUDE 234 BEDS AT [facility] Last Admin: 03/30/18 10:00 Dose: 10 mg Folic Acid (Folic Acid) 1 mg PO DAILY [facility]S [facility]CLUDE 234 BEDS AT [facility] Last Admin: 03/30/18 09:59 Dose: 1 mg Insulin Human Regular (Humulin R Low) 0 units SC ACHS COUNTS INCLUDE 234 BEDS AT [facility] PRN Reason: Protocol Last Admin: 03/30/18 11:42 Dose: 1 units Lisinopril (Zestril) 10 mg PO DAILY COUNTS INCLUDE 234 BEDS AT [facility] Last Admin: 03/30/18 10:00 Dose: 10 mg Metformin HCl (Glucophage) 500 mg PO BID COUNTS [facility]CLUDE 234 BEDS AT [facility] Last Admin: 03/30/18 10:00 Dose: 500 mg Multivitamins/Minerals (Therapeutic-M Tab) 1 tab PO 0800 COUNTS [facility]CLUDE 234 BEDS AT [facility] Last Admin: 03/30/18 09:59 Dose: 1 tab Ondansetron HCl (Zofran Inj) 4 mg IVP Q6H PRN PRN Reason: Nausea/Vomiting Last Admin: 03/28/18 11:06 Dose: 4 mg Thiamine HCl (Vitamin B1 Tab) 100 mg PO DAILY [facility]CLUDE 234 BEDS AT [facility] Last Admin: 03/30/18 09:59 Dose: 100 mg Zinc Sulfate (Zinc Sulfate 220 Mg Cap) 220 mg PO DAILY [facility]S [facility]CLUDE 234 BEDS AT [facility] Last Admin: 03/30/18 10:00 Dose: 220 mg - Labs Labs: 03/28/18 05:30 03/28/18 10:19 PT 12.5 SECONDS (9.4-12.5) 12/09/17 10:00 INR 1.09 (0.93-1.08) H 12/09/17 10:00 APTT 28.3 Seconds (25.1-36.5) 11/30/17 05:30 Attending/Attestation - Attestation I have personally seen and examined this patient.: Yes I have fully participated in the care of the patient.: Yes I have reviewed all pertinent clinical information, including history, physical exam and plan: Yes Notes (Text): 03/30/18 14:30 Medical record note made by the resident after discussion with my direction and input after the patient was personally seen and examined by me. I have reviewed the chart and agree that the record accurately reflects by personal performance of the history, physical exam, data review, and medical decision-making, in the course for the patient. I have also personally directed the plan of care. Patient is stable at his base line.There is no active medical issue.He is awaiting guardianship paper work for placement. Prognosis is guarded
[2018-03-30] MEDS: Insulin Reg-LOW-Coverage SC SCH ×4 (07:53→21:59)
[2018-03-30] MEDS: Multivitamin With Minerals Tab PO SCH (09:59)
--- NOTE | 2018-03-30 15:44 | CP.PCM.PN ---
Subjective - Date & Time of Evaluation Date of Evaluation: 03/30/18 Time of Evaluation: 10:05 - Subjective Subjective: Afebrile, comfortable in bed. Objective - Vital Signs/Intake and Output Vital Signs (last 24 hours): Temp Pulse Resp BP Pulse Ox 97.8 F 79 19 109/64 97 03/29/18 18:00 03/29/18 18:00 03/29/18 18:00 03/29/18 18:00 03/29/18 18:00 Intake and Output: 03/30/18 03/30/18 06:59 18:59 Intake Total 120 Balance 120 - Medications Medications: Current Medications Amlodipine Besylate (Norvasc) 10 mg PO DAILY [facility] Last Admin: 03/29/18 10:24 Dose: 10 mg Aspirin (Ecotrin) 81 mg PO DAILY [facility] Last Admin: 03/29/18 10:23 Dose: 81 mg Atorvastatin Calcium (Lipitor) 20 mg PO DIN [facility] Last Admin: 03/29/18 17:46 Dose: 20 mg Citalopram Hydrobromide (Celexa) 10 mg PO DAILY [facility] Last Admin: 03/29/18 10:23 Dose: 10 mg Folic Acid (Folic Acid) 1 mg PO DAILY [facility] Last Admin: 03/29/18 10:23 Dose: 1 mg Sodium Chloride (Sodium Chloride 0.9%) 1,000 mls @ 150 mls/hr IV .Q6H40M [facility] Last Admin: 03/29/18 20:15 Dose: Not Given Insulin Human Regular (Humulin R Low) 0 units SC ACHS [facility] PRN Reason: Protocol Last Admin: 03/29/18 22:00 Dose: Not Given Lisinopril (Zestril) 10 mg PO DAILY [facility] Last Admin: 03/29/18 10:24 Dose: 10 mg Metformin HCl (Glucophage) 500 mg PO BID [facility] Last Admin: 03/29/18 17:46 Dose: 500 mg Multivitamins/Minerals (Therapeutic-M Tab) 1 tab PO 0800 [facility] Last Admin: 03/29/18 10:24 Dose: Not Given Ondansetron HCl (Zofran Inj) 4 mg IVP Q6H PRN PRN Reason: Nausea/Vomiting Last Admin: 03/28/18 11:06 Dose: 4 mg Thiamine HCl (Vitamin B1 Tab) 100 mg PO DAILY [facility] Last Admin: 03/29/18 10:24 Dose: 100 mg Zinc Sulfate (Zinc Sulfate 220 Mg Cap) 220 mg PO DAILY [facility] Last Admin: 03/29/18 10:24 Dose: 220 mg - Labs Labs: 03/28/18 05:30 03/28/18 10:19 PT 12.5 SECONDS (9.4-12.5) 12/09/17 10:00 INR 1.09 (0.93-1.08) H 12/09/17 10:00 APTT 28.3 Seconds (25.1-36.5) 11/30/17 05:30 - Constitutional Appears: Chronically Ill - Head Exam Head Exam: NORMAL INSPECTION - ENT Exam ENT Exam: Mucous Membranes Moist - Neck Exam Neck Exam: absent: Meningismus - Respiratory Exam Respiratory Exam: Decreased Breath Sounds - Cardiovascular Exam Cardiovascular Exam: +S1, +S2 - GI/Abdominal Exam GI & Abdominal Exam: Soft. absent: Tenderness Assessment and Plan - Assessment and Plan (Free Text) Plan: Assessment S/P sepsis due to strep viridans and CoNS bacteremia from right gluteal and back cellulitis S/P multifocal HCAP on top of Influenza A infection S/P Sammie infection of sacral area as well peripheral vascular disease Plan patient had completed 42 days of antibiotics on this admission - continue to monitor clinically off antibiotics since he is at risk for nosocomial infections patient is still waiting for guardianship
--- NOTE | 2018-03-31 07:00 | CP.PCM.PN ---
Subjective - Date & Time of Evaluation Date of Evaluation: 03/31/18 Time of Evaluation: 06:57 - Subjective Subjective: Patient seen and evaluated. No acute events overnight. Patient with no complaints. Clinically unchanged. Objective - Vital Signs/Intake and Output Vital Signs (last 24 hours): Temp Pulse Resp BP Pulse Ox 98.6 F 90 19 111/67 97 03/30/18 18:00 03/30/18 18:00 03/30/18 18:00 03/30/18 18:00 03/30/18 18:00 Intake and Output: 03/30/18 03/31/18 18:59 06:59 Intake Total 120 540 Balance 120 540 - Medications Medications: Current Medications Amlodipine Besylate (Norvasc) 10 mg PO DAILY [facility] Last Admin: 03/30/18 09:56 Dose: 10 mg Aspirin (Ecotrin) 81 mg PO DAILY [facility] Last Admin: 03/30/18 09:57 Dose: 81 mg Atorvastatin Calcium (Lipitor) 20 mg PO DIN [facility] Last Admin: 03/30/18 17:58 Dose: 20 mg Citalopram Hydrobromide (Celexa) 10 mg PO DAILY [facility] Last Admin: 03/30/18 10:00 Dose: 10 mg Folic Acid (Folic Acid) 1 mg PO DAILY [facility] Last Admin: 03/30/18 09:59 Dose: 1 mg Insulin Human Regular (Humulin R Low) 0 units SC ACHS [facility] PRN Reason: Protocol Last Admin: 03/30/18 21:59 Dose: Not Given Lisinopril (Zestril) 10 mg PO DAILY [facility] Last Admin: 03/30/18 10:00 Dose: 10 mg Metformin HCl (Glucophage) 500 mg PO BID [facility] Last Admin: 03/30/18 17:58 Dose: 500 mg Multivitamins/Minerals (Therapeutic-M Tab) 1 tab PO 0800 [facility] Last Admin: 03/30/18 09:59 Dose: 1 tab Ondansetron HCl (Zofran Inj) 4 mg IVP Q6H PRN PRN Reason: Nausea/Vomiting Last Admin: 03/28/18 11:06 Dose: 4 mg Thiamine HCl (Vitamin B1 Tab) 100 mg PO DAILY [facility] Last Admin: 03/30/18 09:59 Dose: 100 mg Zinc Sulfate (Zinc Sulfate 220 Mg Cap) 220 mg PO DAILY [facility] Last Admin: 03/30/18 10:00 Dose: 220 mg - Labs Labs: 03/28/18 05:30 03/28/18 10:19 PT 12.5 SECONDS (9.4-12.5) 12/09/17 10:00 INR 1.09 (0.93-1.08) H 12/09/17 10:00 APTT 28.3 Seconds (25.1-36.5) 11/30/17 05:30 - Constitutional Appears: No Acute Distress - Head Exam Head Exam: ATRAUMATIC, NORMAL INSPECTION, NORMOCEPHALIC - Eye Exam Eye Exam: EOMI, PERRL - ENT Exam ENT Exam: Mucous Membranes Moist - Respiratory Exam Respiratory Exam: Clear to Ausculation Bilateral, NORMAL BREATHING PATTERN. absent: Rales, Rhonchi, Wheezes - Cardiovascular Exam Cardiovascular Exam: REGULAR RHYTHM, +S1, +S2 - GI/Abdominal Exam GI & Abdominal Exam: Soft, Normal Bowel Sounds. absent: Tenderness - Extremities Exam Extremities Exam: Full ROM. absent: Pedal Edema, Tenderness Additional comments: DEE hose in place - Neurological Exam Neurological Exam: Alert, Awake Additional comments: motor and sensory grossly intact - Psychiatric Exam Psychiatric exam: Flat Affect Additional comments: AAOx2 - Skin Skin Exam: Dry, Warm Assessment and Plan - Assessment and Plan (Free Text) Assessment: 57yo male unknown PMHx admitted for AMS, right hip cellulitis, multifocal pneumonia, influenza A, strep viridians bacteremia with findings of stroke on MRI - acute vs. 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 Patient was treated for bacteremia with IV abx. Patient continues to refuse testing at this time. Guardianship establishment pending. Plan: Altered mental status - Currently at baseline mentation which waxes and wanes - Patient mentation clinically unchanged, able to answer simple questions - Delirium precautions; PT - patient refusing to participate - ASA/Lipitor Coag negative Staphylococcus bacteremia - Last bld clx negative 12/04/17 with completion of 6 week course of antibiotics - Monitor WBC, ESR, CRP weekly - Echocardiogram unable to rule out vegetations, family is unavailable for consent for TAHIR Stage 1 decubitus ulcer-improving - Patient refuses to get out of bed to chair - Refusing PT - Skin breakdown improving - Continue with Q2 turns, Wound care consulted - Folic acid, Thiamine, Zinc daily Colonic mass - CT Abd/Pelvis showing colonic mass and hepatic lesions - GI consulted: follow recs - Flex sig/colonoscopy refused by patient at this time - Family unable to be contacted for consent Diabetes mellitus type 2 in non-obese - Continue ISS low - Metformin 500mg BID - Monitor glucose - Carb consistent diet - Sugars slightly elevated over past week will consider increasing metformin HTN - Lisinopril 10 daily - Stable, continue to monitor Affective disorder - Celexa 10mg PO Daily Prophylaxis - Patient tolerating meals, no need for GI ppx - SCDs, patient refusing, wearing DEE hose Dispo: Patient lacks decision making capacity and is unable to comprehend his diagnosis, medical treatment, potential benefit and risk associated with and without treatment. Guardianship paperwork being processed followed by potential placement. Court scheduled for 05/05/2018 concerning guardianship Case and plan discussed with attending
[2018-03-31] MEDS: Insulin Reg-LOW-Coverage SC SCH ×4 (07:58→23:19)
[2018-03-31] MEDS: Multivitamin With Minerals Tab PO SCH (09:58)
--- NOTE | 2018-03-31 16:42 | CP.PCM.PN ---
Subjective - Date & Time of Evaluation Date of Evaluation: 03/31/18 Time of Evaluation: 09:55 - Subjective Subjective: No fevers, not in distress. Objective - Vital Signs/Intake and Output Vital Signs (last 24 hours): Temp Pulse Resp BP Pulse Ox 98.6 F 90 19 111/67 97 03/30/18 18:00 03/30/18 18:00 03/30/18 18:00 03/30/18 18:00 03/30/18 18:00 Intake and Output: 03/31/18 03/31/18 06:59 18:59 Intake Total 540 Balance 540 - Medications Medications: Current Medications Amlodipine Besylate (Norvasc) 10 mg PO DAILY [facility] Last Admin: 03/30/18 09:56 Dose: 10 mg Aspirin (Ecotrin) 81 mg PO DAILY [facility] Last Admin: 03/30/18 09:57 Dose: 81 mg Atorvastatin Calcium (Lipitor) 20 mg PO DIN [facility] Last Admin: 03/30/18 17:58 Dose: 20 mg Citalopram Hydrobromide (Celexa) 10 mg PO DAILY [facility] Last Admin: 03/30/18 10:00 Dose: 10 mg Folic Acid (Folic Acid) 1 mg PO DAILY [facility] Last Admin: 03/30/18 09:59 Dose: 1 mg Insulin Human Regular (Humulin R Low) 0 units SC [facility] PRN Reason: Protocol Last Admin: 03/30/18 21:59 Dose: Not Given Lisinopril (Zestril) 10 mg PO DAILY [facility] Last Admin: 03/30/18 10:00 Dose: 10 mg Metformin HCl (Glucophage) 500 mg PO BID [facility] Last Admin: 03/30/18 17:58 Dose: 500 mg Multivitamins/Minerals (Therapeutic-M Tab) 1 tab PO 0800 [facility] Last Admin: 03/30/18 09:59 Dose: 1 tab Ondansetron HCl (Zofran Inj) 4 mg IVP Q6H PRN PRN Reason: Nausea/Vomiting Last Admin: 03/28/18 11:06 Dose: 4 mg Thiamine HCl (Vitamin B1 Tab) 100 mg PO DAILY [facility] Last Admin: 03/30/18 09:59 Dose: 100 mg Zinc Sulfate (Zinc Sulfate 220 Mg Cap) 220 mg PO DAILY [facility] Last Admin: 03/30/18 10:00 Dose: 220 mg - Labs Labs: 03/28/18 05:30 03/28/18 10:19 PT 12.5 SECONDS (9.4-12.5) 12/09/17 10:00 INR 1.09 (0.93-1.08) H 12/09/17 10:00 APTT 28.3 Seconds (25.1-36.5) 11/30/17 05:30 - Constitutional Appears: Chronically Ill - Head Exam Head Exam: NORMAL INSPECTION - Neck Exam Neck Exam: absent: Meningismus - Respiratory Exam Respiratory Exam: Decreased Breath Sounds - Cardiovascular Exam Cardiovascular Exam: +S1, +S2 - GI/Abdominal Exam GI & Abdominal Exam: Soft. absent: Tenderness Assessment and Plan - Assessment and Plan (Free Text) Plan: Assessment S/P sepsis due to strep viridans and CoNS bacteremia from right gluteal and back cellulitis S/P multifocal HCAP on top of Influenza A infection S/P Sammie infection of sacral area as well peripheral vascular disease Plan patient had completed 42 days of antibiotics on this admission - continue to monitor clinically off antibiotics since he is at risk for hospital-acquired infections patient is still waiting for guardianship
[2018-04-01] MEDS: Insulin Reg-LOW-Coverage SC SCH ×3 (09:25→17:42)
[2018-04-01] MEDS: Multivitamin With Minerals Tab PO SCH (09:27)
--- NOTE | 2018-04-01 12:29 | CP.PCM.PN ---
Subjective - Date & Time of Evaluation Date of Evaluation: 04/01/18 Time of Evaluation: 11:05 - Subjective Subjective: Comfortable in bed, no fevers. Objective - Vital Signs/Intake and Output Vital Signs (last 24 hours): Temp Pulse Resp BP Pulse Ox 99.0 F 97 H 20 117/74 96 04/01/18 06:00 04/01/18 06:00 04/01/18 06:00 04/01/18 06:00 04/01/18 06:00 Intake and Output: 04/01/18 04/01/18 06:59 18:59 Intake Total 180 Balance 180 - Medications Medications: Current Medications Amlodipine Besylate (Norvasc) 10 mg PO DAILY [facility] Last Admin: 03/31/18 09:57 Dose: 10 mg Aspirin (Ecotrin) 81 mg PO DAILY [facility] Last Admin: 03/31/18 09:57 Dose: 81 mg Atorvastatin Calcium (Lipitor) 20 mg PO DIN [facility] Last Admin: 03/31/18 17:44 Dose: 20 mg Citalopram Hydrobromide (Celexa) 10 mg PO DAILY [facility] Last Admin: 03/31/18 09:57 Dose: 10 mg Folic Acid (Folic Acid) 1 mg PO DAILY [facility] Last Admin: 03/31/18 09:57 Dose: 1 mg Insulin Human Regular (Humulin R Low) 0 units SC ACHS [facility] PRN Reason: Protocol Last Admin: 03/31/18 23:19 Dose: Not Given Lisinopril (Zestril) 10 mg PO DAILY [facility] Last Admin: 03/31/18 09:57 Dose: 10 mg Metformin HCl (Glucophage) 500 mg PO BID [facility] Last Admin: 03/31/18 17:44 Dose: 500 mg Multivitamins/Minerals (Therapeutic-M Tab) 1 tab PO 0800 [facility] Last Admin: 03/31/18 09:58 Dose: 1 tab Ondansetron HCl (Zofran Inj) 4 mg IVP Q6H PRN PRN Reason: Nausea/Vomiting Last Admin: 03/28/18 11:06 Dose: 4 mg Thiamine HCl (Vitamin B1 Tab) 100 mg PO DAILY [facility] Last Admin: 03/31/18 09:57 Dose: 100 mg Zinc Sulfate (Zinc Sulfate 220 Mg Cap) 220 mg PO DAILY [facility] Last Admin: 03/31/18 09:57 Dose: 220 mg - Labs Labs: 03/28/18 05:30 03/28/18 10:19 PT 12.5 SECONDS (9.4-12.5) 12/09/17 10:00 INR 1.09 (0.93-1.08) H 12/09/17 10:00 APTT 28.3 Seconds (25.1-36.5) 11/30/17 05:30 - Constitutional Appears: Non-toxic, Chronically Ill - Head Exam Head Exam: NORMAL INSPECTION - Neck Exam Neck Exam: absent: Meningismus - Respiratory Exam Respiratory Exam: Decreased Breath Sounds - Cardiovascular Exam Cardiovascular Exam: +S1, +S2 - GI/Abdominal Exam GI & Abdominal Exam: Soft. absent: Tenderness Assessment and Plan - Assessment and Plan (Free Text) Plan: Assessment S/P sepsis due to strep viridans and CoNS bacteremia from right gluteal and back cellulitis S/P multifocal HCAP on top of Influenza A infection S/P Sammie infection of sacral area as well peripheral vascular disease Plan patient had completed 42 days of antibiotics on this admission - continue to monitor clinically off antibiotics since he is at risk for nosocomial infections patient still waiting for guardianship
--- NOTE | 2018-04-01 12:34 | CP.PCM.PN ---
<Car Dupree - Last Filed: 04/01/18 13:40> Subjective - Date & Time of Evaluation Date of Evaluation: 04/01/18 Time of Evaluation: 11:34 - Subjective Subjective: Car Dupree PGY1 IM Progress Note for Dr. Lang Patient was seen and examined at bedside. there are no acute overnight events, and patient offers no complaints. denies chest pain, shortness of breath, fevers/chills, n/v/d. Objective - Vital Signs/Intake and Output Vital Signs (last 24 hours): Temp Pulse Resp BP Pulse Ox 99.0 F 97 H 20 117/74 96 04/01/18 06:00 04/01/18 09:27 04/01/18 06:00 04/01/18 09:27 04/01/18 06:00 Intake and Output: 04/01/18 04/01/18 06:59 18:59 Intake Total 180 Balance 180 - Medications Medications: Current Medications Amlodipine Besylate (Norvasc) 10 mg PO DAILY [facility] Last Admin: 04/01/18 09:26 Dose: 10 mg Aspirin (Ecotrin) 81 mg PO DAILY [facility] Last Admin: 04/01/18 09:25 Dose: 81 mg Atorvastatin Calcium (Lipitor) 20 mg PO DIN [facility] Last Admin: 03/31/18 17:44 Dose: 20 mg Citalopram Hydrobromide (Celexa) 10 mg PO DAILY [facility] Last Admin: 04/01/18 09:24 Dose: 10 mg Folic Acid (Folic Acid) 1 mg PO DAILY [facility] Last Admin: 04/01/18 09:25 Dose: 1 mg Insulin Human Regular (Humulin R Low) 0 units SC ACHS [facility] PRN Reason: Protocol Last Admin: 04/01/18 11:52 Dose: Not Given Lisinopril (Zestril) 10 mg PO DAILY [facility] Last Admin: 04/01/18 09:27 Dose: 10 mg Metformin HCl (Glucophage) 500 mg PO BID [facility] Last Admin: 04/01/18 09:25 Dose: 500 mg Multivitamins/Minerals (Therapeutic-M Tab) 1 tab PO 0800 [facility] Last Admin: 04/01/18 09:27 Dose: 1 tab Ondansetron HCl (Zofran Inj) 4 mg IVP Q6H PRN PRN Reason: Nausea/Vomiting Last Admin: 03/28/18 11:06 Dose: 4 mg Thiamine HCl (Vitamin B1 Tab) 100 mg PO DAILY [facility] Last Admin: 04/01/18 09:27 Dose: 100 mg Zinc Sulfate (Zinc Sulfate 220 Mg Cap) 220 mg PO DAILY [facility] Last Admin: 04/01/18 09:27 Dose: 220 mg - Labs Labs: 03/28/18 05:30 03/28/18 10:19 PT 12.5 SECONDS (9.4-12.5) 12/09/17 10:00 INR 1.09 (0.93-1.08) H 12/09/17 10:00 APTT 28.3 Seconds (25.1-36.5) 11/30/17 05:30 - Additional Findings Additional findings: - Constitutional Appears: No Acute Distress - Head Exam Head Exam: ATRAUMATIC, NORMAL INSPECTION, NORMOCEPHALIC - Eye Exam Eye Exam: EOMI, PERRL - ENT Exam ENT Exam: Mucous Membranes Moist - Respiratory Exam Respiratory Exam: Clear to Ausculation Bilateral, NORMAL BREATHING PATTERN. absent: Rales, Rhonchi, Wheezes - Cardiovascular Exam Cardiovascular Exam: REGULAR RHYTHM, +S1, +S2 - GI/Abdominal Exam GI & Abdominal Exam: Soft, Normal Bowel Sounds - Neurological Exam Neurological Exam: Alert, Awake Additional comments: Motor and sensory grossly intact, able to move all four extremities past midline - Psychiatric Exam Psychiatric exam: Flat Affect - Skin Skin Exam: Dry, Warm Assessment and Plan - Assessment and Plan (Free Text) Assessment: 57yo male unknown PMHx admitted for AMS, right hip cellulitis, multifocal pneumonia, influenza A, strep viridians bacteremia with findings of stroke on MRI - acute vs. 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 Patient was treated for bacteremia with IV abx. Patient continues to refuse testing at this time. Guardianship establishment pending. Plan: 1. Altered mental status - Currently at baseline mentation which waxes and wanes - Patient mentation clinically unchanged, able to answer simple questions - Delirium precautions; PT - patient refusing to participate - ASA/Lipitor - pending court date 05/05/18 for state guardianship 2. Coag negative Staphylococcus bacteremia - Last blood cx negative 12/04/17 with completion of 6 week course of antibiotics - Monitor WBC, ESR, CRP weekly - Echocardiogram unable to rule out vegetations, family is unavailable for consent for TAHIR 3. Stage 1 decubitus ulcer-improving - Patient refuses to get out of bed to chair - Refusing PT - Skin breakdown improving - Continue with Q2 turns, Wound care consulted - Folic acid, Thiamine, Zinc daily 4. Colonic mass - CT Abd/Pelvis showing colonic mass and hepatic lesions - GI consulted: follow recs - Flex sig/colonoscopy refused by patient at this time - Family unable to be contacted for consent 5. Diabetes mellitus type 2 in non-obese - Continue ISS low - Metformin 500mg BID - Monitor glucose - Carb consistent diet 6. HTN - Lisinopril 10 daily - Stable, continue to monitor 7. Affective disorder - Celexa 10mg PO Daily - Psych was consulted 8. Prophylaxis - Patient tolerating meals, no need for GI ppx - SCDs Dispo: Patient lacks decision making capacity and is unable to comprehend his diagnosis, medical treatment, potential benefit and risk associated with and without treatment. Guardianship paperwork being processed followed by potential placement. Court scheduled for 05/05/2018 concerning guardianship. therapeutic case manager trying to push it earlier. Case was reviewed and discussed with attending, Dr. Rickey Dupree PGY1 <Graeme Lang - Last Filed: 07/16/18 18:15> Attending/Attestation - Attestation I have personally seen and examined this patient.: Yes I have fully participated in the care of the patient.: Yes I have reviewed all pertinent clinical information, including history, physical exam and plan: Yes Notes (Text): Altered mental status - Currently at baseline mentation which waxes and wanes Coag negative Staphylococcus bacteremia - Last bld clx negative 12/04/17 with completion of 6 week course of antibiotics Stage 1 decubitus ulcer-improving - Patient refuses to get out of bed to chair Colonic mass - CT Abd/Pelvis showing colonic mass and hepatic lesions Diabetes mellitus type 2
[2018-04-02] MEDS: Insulin Reg-LOW-Coverage SC SCH ×5 (05:23→22:00)
[2018-04-02] MEDS: Multivitamin With Minerals Tab PO SCH (10:15)
--- NOTE | 2018-04-02 12:29 | PN ---
DATE: 04/02/2018 SUBJECTIVE: The patient is seen in bed, in no acute distress, nontoxic. No fevers and chills. PHYSICAL EXAMINATION: Temperature is 98, blood pressure is 120/70, respiratory rate of 16. HEENT: Unremarkable. NECK: Supple. LUNGS: Have decreased breath sounds. HEART: Normal S1, S2. ABDOMEN: Soft, nontender. LABORATORY EXAMINATION: Reveals a white count is noted. ASSESSMENT/PLAN: This is a 57-year-old male with status post sepsis due to streptococci viridans and coag-negative Staphylococcus bacteremia, right gluteal and back cellulitis, status post multifocal healthcare-associated pneumonia on top of influenza A infection, completed 42 days of antibiotics. Currently off of antibiotics. The patient is at risk for developing nosocomial infections. We will follow closely with you. Daniel Torres MD
--- NOTE | 2018-04-02 15:10 | CP.PCM.PN ---
<Jorge Luis Lopez - Last Filed: 04/02/18 15:15> Subjective - Date & Time of Evaluation Date of Evaluation: 04/02/18 Time of Evaluation: 08:00 - Subjective Subjective: Patient seen and examined at bedside with no complaints. States he is moving his bowels and urinating. Denies chest pain, shortness of breath, nausea, vomiting, diarrhea, headache, cough, fevers, chills. Objective - Vital Signs/Intake and Output Vital Signs (last 24 hours): Temp Pulse Resp BP Pulse Ox 97.6 F 88 20 128/86 97 04/02/18 07:46 04/02/18 07:46 04/02/18 07:46 04/02/18 10:14 04/02/18 07:46 Intake and Output: 04/02/18 04/02/18 06:59 18:59 Intake Total 660 840 Balance 660 840 - Medications Medications: Current Medications Amlodipine Besylate (Norvasc) 10 mg PO DAILY [facility] Last Admin: 04/02/18 10:14 Dose: 10 mg Aspirin (Ecotrin) 81 mg PO DAILY [facility] Last Admin: 04/02/18 10:14 Dose: 81 mg Atorvastatin Calcium (Lipitor) 20 mg PO DIN [facility] Last Admin: 04/01/18 17:42 Dose: 20 mg Citalopram Hydrobromide (Celexa) 10 mg PO DAILY [facility] Last Admin: 04/02/18 10:13 Dose: 10 mg Folic Acid (Folic Acid) 1 mg PO DAILY [facility] Last Admin: 04/02/18 10:14 Dose: 1 mg Insulin Human Regular (Humulin R Low) 0 units SC ACHS [facility] PRN Reason: Protocol Last Admin: 04/02/18 13:28 Dose: 1 units Lisinopril (Zestril) 10 mg PO DAILY [facility] Last Admin: 04/02/18 10:15 Dose: 10 mg Metformin HCl (Glucophage) 500 mg PO BID [facility] Last Admin: 04/02/18 10:14 Dose: 500 mg Multivitamins/Minerals (Therapeutic-M Tab) 1 tab PO 0800 [facility] Last Admin: 04/02/18 10:15 Dose: 1 tab Ondansetron HCl (Zofran Inj) 4 mg IVP Q6H PRN PRN Reason: Nausea/Vomiting Last Admin: 03/28/18 11:06 Dose: 4 mg Thiamine HCl (Vitamin B1 Tab) 100 mg PO DAILY [facility] Last Admin: 04/02/18 10:15 Dose: 100 mg Zinc Sulfate (Zinc Sulfate 220 Mg Cap) 220 mg PO DAILY [facility] Last Admin: 04/02/18 10:15 Dose: 220 mg - Labs Labs: 03/28/18 05:30 03/28/18 10:19 PT 12.5 SECONDS (9.4-12.5) 12/09/17 10:00 INR 1.09 (0.93-1.08) H 12/09/17 10:00 APTT 28.3 Seconds (25.1-36.5) 11/30/17 05:30 - Head Exam Head Exam: ATRAUMATIC, NORMAL INSPECTION, NORMOCEPHALIC - Eye Exam Eye Exam: EOMI, Normal appearance - ENT Exam ENT Exam: Mucous Membranes Moist - Neck Exam Neck Exam: Full ROM - Respiratory Exam Respiratory Exam: Clear to Ausculation Bilateral. absent: Rhonchi, Wheezes - Cardiovascular Exam Cardiovascular Exam: REGULAR RHYTHM, +S1, +S2 - GI/Abdominal Exam GI & Abdominal Exam: Soft, Normal Bowel Sounds - Extremities Exam Extremities Exam: Normal Inspection - Back Exam Back Exam: NORMAL INSPECTION - Neurological Exam Neurological Exam: Alert, Awake, Oriented x3 Additional comments: Motor and sensory grossly intact, able to move all four extremities past midline - Psychiatric Exam Psychiatric exam: Flat Affect - Skin Skin Exam: Normal Color, Warm Assessment and Plan - Assessment and Plan (Free Text) Assessment: 57yo male unknown PMHx admitted for AMS, right hip cellulitis, multifocal pneumonia, influenza A, strep viridians bacteremia with findings of stroke on MRI - acute vs. 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 Patient was treated for bacteremia with IV abx. Guardianship establishment pending. Plan: 1. Altered mental status - Patient mentation clinically unchanged, able to answer simple questions but is unaware of date and location - Continue with ASA and Lipitor - Court date 05/05/18 for state guardianship 2. Coag negative Staphylococcus bacteremia - Last blood cx negative 12/04/17 with completion of 6 week course of antibiotics - Continue to monitor WBC, ESR, CRP weekly - Echocardiogram unable to rule out vegetation. Patient regusing TAHIR and family is unavailable for consent for TAHIR 3. Stage 1 decubitus ulcer-improving - Patient refuses to get out of bed to chair - Refusing PT - Skin breakdown improving - Continue with Q2 turns, Wound care consulted. Will continue to have television monitor moved to alternate sides of bed so patient will turn to watch. - Continue with Folic acid, Thiamine, Zinc daily 4. Colonic mass - CT Abd/Pelvis showing colonic mass and hepatic lesions - GI consulted: follow recommendations - Flex sig/colonoscopy refused by patient at this time; cannot contact family at the moment 5. Diabetes mellitus type 2 in non-obese - Continue ISS low - Continue Metformin 500mg BID - Continue to monitor glucose - Carb consistent diet given 6. HTN - Lisinopril 10 daily - Continue to monitor vitals 7. Affective disorder - Celexa 10mg PO Daily Prophylaxis DVT prophylaxis: SCDs. Pharmacologic ppx not needed with KANNAN score of 3. Disposition: Patient lacks decision making capacity and is unable to comprehend his diagnosis, medical treatment, potential benefit and risk associated with and without treatment. Guardianship paperwork being processed followed by potential placement. Court scheduled for 05/05/2018 concerning guardianship. hardware engineering manager currently is attempting to make court date earlier. Case was reviewed and discussed with attending <Arben Larry - Last Filed: 04/02/18 21:05> Objective - Vital Signs/Intake and Output Vital Signs (last 24 hours): Temp Pulse Resp BP Pulse Ox 98.2 F 88 19 110/71 98 04/02/18 18:28 04/02/18 18:28 04/02/18 18:28 04/02/18 18:28 04/02/18 18:28 Intake and Output: 04/02/18 04/03/18 18:59 06:59 Intake Total 840 Balance 840 - Medications Medications: Current Medications Amlodipine Besylate (Norvasc) 10 mg PO DAILY [facility] Last Admin: 04/02/18 10:14 Dose: 10 mg Aspirin (Ecotrin) 81 mg PO DAILY [facility] Last Admin: 04/02/18 10:14 Dose: 81 mg Atorvastatin Calcium (Lipitor) 20 mg PO DIN [facility] Last Admin: 04/02/18 18:00 Dose: 20 mg Citalopram Hydrobromide (Celexa) 10 mg PO DAILY [facility] Last Admin: 04/02/18 10:13 Dose: 10 mg Folic Acid (Folic Acid) 1 mg PO DAILY [facility] Last Admin: 04/02/18 10:14 Dose: 1 mg Insulin Human Regular (Humulin R Low) 0 units SC ACHS [facility] PRN Reason: Protocol Last Admin: 04/02/18 18:00 Dose: 1 units Lisinopril (Zestril) 10 mg PO DAILY [facility] Last Admin: 04/02/18 10:15 Dose: 10 mg Metformin HCl (Glucophage) 500 mg PO BID [facility] Last Admin: 04/02/18 18:00 Dose: 500 mg Multivitamins/Minerals (Therapeutic-M Tab) 1 tab PO 0800 [facility] Last Admin: 04/02/18 10:15 Dose: 1 tab Ondansetron HCl (Zofran Inj) 4 mg IVP Q6H PRN PRN Reason: Nausea/Vomiting Last Admin: 03/28/18 11:06 Dose: 4 mg Thiamine HCl (Vitamin B1 Tab) 100 mg PO DAILY [facility] Last Admin: 04/02/18 10:15 Dose: 100 mg Zinc Sulfate (Zinc Sulfate 220 Mg Cap) 220 mg PO DAILY [facility] Last Admin: 04/02/18 10:15 Dose: 220 mg - Labs Labs: 03/28/18 05:30 03/28/18 10:19 PT 12.5 SECONDS (9.4-12.5) 12/09/17 10:00 INR 1.09 (0.93-1.08) H 12/09/17 10:00 APTT 28.3 Seconds (25.1-36.5) 11/30/17 05:30 Attending/Attestation - Attestation I have personally seen and examined this patient.: Yes I have fully participated in the care of the patient.: Yes I have reviewed all pertinent clinical information, including history, physical exam and plan: Yes Notes (Text): 04/02/18 21:04 patient seen and examined at bedside. Vitals, labs, medications and notes reviewed. No new issues identified. Agree with the plan as discussed and documented by the resident.
[2018-04-03] MEDS: Insulin Reg-LOW-Coverage SC SCH ×4 (08:11→21:49)
[2018-04-03] MEDS: Multivitamin With Minerals Tab PO SCH (08:52)
--- NOTE | 2018-04-03 16:32 | PN ---
DATE: 04/03/2018 SUBJECTIVE: The patient is in bed, in no acute distress, nontoxic. PHYSICAL EXAMINATION: VITAL SIGNS: Temperature is 98, blood pressure is 116/70, respiratory rate 20, heart rate of 90. HEENT: Unremarkable. NECK: Supple. LUNGS: Decreased breath sounds. HEART: Normal S1, S2. ABDOMEN: Soft, nontender. LABORATORY EXAMINATION: Reveals the patient's white count of 9.4. Review of orders reveals the patient is off antibiotics and Dr. Larry's note is reviewed. ASSESSMENT AND PLAN: A 57-year-old male status post sepsis due to streptococcus viridans and coag-negative staphylococcus bacteremia, right gluteal and back cellulitis, status post multifocal health-associated pneumonia on top of influenza A infection, has completed 42 days of antibiotics. Currently off antibiotics, afebrile, is at risk for developing nosocomial infections. Daniel Torres MD
--- NOTE | 2018-04-03 18:16 | CP.PCM.PN ---
<Jorge Luis Lopez - Last Filed: 04/03/18 18:10> Subjective - Date & Time of Evaluation Date of Evaluation: 04/03/18 Time of Evaluation: 18:10 - Subjective Subjective: Patient seen and examined today in no acute distress. Patient offers no complaints. Denies shortness of breath, chest pain, palpitations, headache, cough, abdominal pain, nausea, vomiting, diarrhea. Objective - Vital Signs/Intake and Output Vital Signs (last 24 hours): Temp Pulse Resp BP Pulse Ox 97.8 F 94 H 20 116/74 96 04/03/18 08:01 04/03/18 11:21 04/03/18 08:01 04/03/18 11:21 04/03/18 08:01 Intake and Output: 04/03/18 04/03/18 06:59 18:59 Intake Total 120 600 Balance 120 600 - Medications Medications: Current Medications Amlodipine Besylate (Norvasc) 10 mg PO DAILY [facility] Last Admin: 04/03/18 11:21 Dose: 10 mg Aspirin (Ecotrin) 81 mg PO DAILY [facility] Last Admin: 04/03/18 11:21 Dose: 81 mg Atorvastatin Calcium (Lipitor) 20 mg PO DIN [facility] Last Admin: 04/02/18 18:00 Dose: 20 mg Citalopram Hydrobromide (Celexa) 10 mg PO DAILY [facility] Last Admin: 04/03/18 11:22 Dose: 10 mg Folic Acid (Folic Acid) 1 mg PO DAILY [facility] Last Admin: 04/03/18 11:21 Dose: 1 mg Insulin Human Regular (Humulin R Low) 0 units SC ACHS [facility] PRN Reason: Protocol Last Admin: 04/03/18 17:31 Dose: 1 units Lisinopril (Zestril) 10 mg PO DAILY [facility] Last Admin: 04/03/18 11:21 Dose: 10 mg Metformin HCl (Glucophage) 500 mg PO BID [facility] Last Admin: 04/03/18 11:26 Dose: 500 mg Multivitamins/Minerals (Therapeutic-M Tab) 1 tab PO 0800 [facility] Last Admin: 04/03/18 08:52 Dose: 1 tab Ondansetron HCl (Zofran Inj) 4 mg IVP Q6H PRN PRN Reason: Nausea/Vomiting Last Admin: 03/28/18 11:06 Dose: 4 mg Thiamine HCl (Vitamin B1 Tab) 100 mg PO DAILY [facility] Last Admin: 04/03/18 11:22 Dose: 100 mg Zinc Sulfate (Zinc Sulfate 220 Mg Cap) 220 mg PO DAILY [facility] Last Admin: 04/03/18 11:22 Dose: 220 mg - Labs Labs: 03/28/18 05:30 03/28/18 10:19 PT 12.5 SECONDS (9.4-12.5) 12/09/17 10:00 INR 1.09 (0.93-1.08) H 12/09/17 10:00 APTT 28.3 Seconds (25.1-36.5) 11/30/17 05:30 - Head Exam Head Exam: ATRAUMATIC, NORMAL INSPECTION, NORMOCEPHALIC - Eye Exam Eye Exam: EOMI, Normal appearance - ENT Exam ENT Exam: Mucous Membranes Moist - Respiratory Exam Respiratory Exam: Clear to Ausculation Bilateral, NORMAL BREATHING PATTERN. absent: Rhonchi, Wheezes - Cardiovascular Exam Cardiovascular Exam: REGULAR RHYTHM - GI/Abdominal Exam GI & Abdominal Exam: Soft, Normal Bowel Sounds - Extremities Exam Extremities Exam: Normal Inspection - Back Exam Back Exam: NORMAL INSPECTION - Neurological Exam Neurological Exam: Alert, Awake, Oriented x3 Neuro motor strength exam: Left Upper Extremity: 4, Right Upper Extremity: 4, Left Lower Extremity: 4, Right Lower Extremity: 4 - Psychiatric Exam Psychiatric exam: Normal Affect, Normal Mood - Skin Skin Exam: Normal Color, Warm Assessment and Plan - Assessment and Plan (Free Text) Assessment: 57yo male unknown PMHx admitted for AMS, right hip cellulitis, multifocal pneumonia, influenza A, strep viridians bacteremia with findings of stroke on MRI - acute vs. 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 Patient was treated for bacteremia with IV abx. Guardianship establishment pending. Plan: 1. Altered mental status - Patient mentation clinically unchanged, able to answer simple questions but is unaware of date and location - Continue with ASA and Lipitor - Court date 05/05/18 for state guardianship 2. Coag negative Staphylococcus bacteremia - Last blood cx negative 12/04/17 with completion of 6 week course of antibiotics - Continue to monitor WBC, ESR, CRP weekly - Echocardiogram unable to rule out vegetation. Patient refusing TAHIR and family is unavailable for consent for TAHIR 3. Stage 1 decubitus ulcer-improving - Patient refuses to get out of bed to chair - Refusing PT - Skin breakdown improving - Continue with Q2 turns, Wound care consulted. Will continue to have television monitor moved to alternate sides of bed so patient will turn to watch. - Continue with Folic acid, Thiamine, Zinc daily 4. Colonic mass - CT Abd/Pelvis showing colonic mass and hepatic lesions - GI consulted: follow recommendations - Flex sig/colonoscopy refused by patient at this time; cannot contact family at the moment 5. Diabetes mellitus type 2 in non-obese - Continue ISS low - Metformin 500mg BID - Monitor glucose - Carb consistent diet given 6. HTN - Lisinopril 10 daily - Monitor vitals 7. Affective disorder - Celexa 10mg PO Daily Prophylaxis DVT prophylaxis: SCDs. Pharmacologic ppx not needed with KANNAN score of 3. Disposition: Patient lacks decision making capacity and is unable to comprehend his diagnosis, medical treatment, potential benefit and risk associated with and without treatment. Guardianship paperwork being processed followed by potential placement. Court scheduled for 05/05/2018 concerning guardianship. manager critical care currently is attempting to make court date earlier. Case was reviewed and discussed with attending <Deanna Schumacher - Last Filed: 04/03/18 18:47> Objective - Vital Signs/Intake and Output Vital Signs (last 24 hours): Temp Pulse Resp BP Pulse Ox 97.8 F 94 H 20 116/74 96 04/03/18 08:01 04/03/18 11:21 04/03/18 08:01 04/03/18 11:21 04/03/18 08:01 Intake and Output: 04/03/18 04/03/18 06:59 18:59 Intake Total 120 600 Balance 120 600 - Medications Medications: Current Medications Amlodipine Besylate (Norvasc) 10 mg PO DAILY [facility] Last Admin: 04/03/18 11:21 Dose: 10 mg Aspirin (Ecotrin) 81 mg PO DAILY [facility] Last Admin: 04/03/18 11:21 Dose: 81 mg Atorvastatin Calcium (Lipitor) 20 mg PO DIN [facility] Last Admin: 04/03/18 18:21 Dose: 20 mg Citalopram Hydrobromide (Celexa) 10 mg PO DAILY [facility] Last Admin: 04/03/18 11:22 Dose: 10 mg Folic Acid (Folic Acid) 1 mg PO DAILY [facility] Last Admin: 04/03/18 11:21 Dose: 1 mg Insulin Human Regular (Humulin R Low) 0 units SC ACHS [facility] PRN Reason: Protocol Last Admin: 04/03/18 17:31 Dose: 1 units Lisinopril (Zestril) 10 mg PO DAILY [facility] Last Admin: 04/03/18 11:21 Dose: 10 mg Metformin HCl (Glucophage) 500 mg PO BID [facility] Last Admin: 04/03/18 18:21 Dose: 500 mg Multivitamins/Minerals (Therapeutic-M Tab) 1 tab PO 0800 [facility] Last Admin: 04/03/18 08:52 Dose: 1 tab Ondansetron HCl (Zofran Inj) 4 mg IVP Q6H PRN PRN Reason: Nausea/Vomiting Last Admin: 03/28/18 11:06 Dose: 4 mg Thiamine HCl (Vitamin B1 Tab) 100 mg PO DAILY [facility] Last Admin: 04/03/18 11:22 Dose: 100 mg Zinc Sulfate (Zinc Sulfate 220 Mg Cap) 220 mg PO DAILY [facility] Last Admin: 04/03/18 11:22 Dose: 220 mg - Labs Labs: 03/28/18 05:30 03/28/18 10:19 PT 12.5 SECONDS (9.4-12.5) 12/09/17 10:00 INR 1.09 (0.93-1.08) H 12/09/17 10:00 APTT 28.3 Seconds (25.1-36.5) 11/30/17 05:30 Attending/Attestation - Attestation I have personally seen and examined this patient.: Yes I have fully participated in the care of the patient.: Yes I have reviewed all pertinent clinical information, including history, physical exam and plan: Yes Notes (Text): 04/03/18 18:47 Medical record note made by the resident after discussion with my direction and input after the patient was personally seen and examined by me. I have reviewed the chart and agree that the record accurately reflects by personal performance of the history, physical exam, data review, and medical decision-making, in the course for the patient. I have also personally directed the plan of care. Patient is stable at his base line.There is no active medical issue.He is awaiting guardianship paper work for placement. Prognosis is guarded
[2018-04-04 07:01] LABS: HEMOGLOBIN 11.5 g/dL (14.0-18.0); MEAN CELL VOLUME 82.8 fl (80.0-105.0); MEAN CORPUSCULAR HEMOGLOBIN 26.8 pg (25.0-35.0); MEAN CORPUSCULAR HGB CONC 32.4 g/dl (31.0-37.0); MEAN PLATELET VOLUME 9.3 fl (7.0-11.0); RBC 4.29 10^6/uL (3.5-6.1); WHITE BLOOD COUNT 8.7 10^3/ul (4.5-11.0)
[2018-04-04] MEDS: Insulin Reg-LOW-Coverage SC SCH ×4 (07:48→22:28)
--- NOTE | 2018-04-04 08:20 | CP.PCM.PN ---
<Rocael Bowie - Last Filed: 04/04/18 13:06> Subjective - Date & Time of Evaluation Date of Evaluation: 04/04/18 Time of Evaluation: 08:18 - Subjective Subjective: Patient seen and evaluated this AM. No acute events reported overnight. Patient clinically unchanged. Patient reports no complaints at this time. Objective - Vital Signs/Intake and Output Vital Signs (last 24 hours): Temp Pulse Resp BP Pulse Ox 98.2 F 84 20 113/73 96 04/04/18 06:00 04/04/18 06:00 04/04/18 06:00 04/04/18 06:00 04/04/18 06:00 - Medications Medications: Current Medications Amlodipine Besylate (Norvasc) 10 mg PO DAILY [facility] Last Admin: 04/03/18 11:21 Dose: 10 mg Aspirin (Ecotrin) 81 mg PO DAILY [facility] Last Admin: 04/03/18 11:21 Dose: 81 mg Atorvastatin Calcium (Lipitor) 20 mg PO DIN [facility] Last Admin: 04/03/18 18:21 Dose: 20 mg Citalopram Hydrobromide (Celexa) 10 mg PO DAILY [facility] Last Admin: 04/03/18 11:22 Dose: 10 mg Folic Acid (Folic Acid) 1 mg PO DAILY [facility] Last Admin: 04/03/18 11:21 Dose: 1 mg Insulin Human Regular (Humulin R Low) 0 units SC [facility] PRN Reason: Protocol Last Admin: 04/04/18 07:48 Dose: Not Given Lisinopril (Zestril) 10 mg PO DAILY [facility] Last Admin: 04/03/18 11:21 Dose: 10 mg Metformin HCl (Glucophage) 500 mg PO BID [facility] Last Admin: 04/03/18 18:21 Dose: 500 mg Multivitamins/Minerals (Therapeutic-M Tab) 1 tab PO 0800 [facility] Last Admin: 04/03/18 08:52 Dose: 1 tab Ondansetron HCl (Zofran Inj) 4 mg IVP Q6H PRN PRN Reason: Nausea/Vomiting Last Admin: 03/28/18 11:06 Dose: 4 mg Thiamine HCl (Vitamin B1 Tab) 100 mg PO DAILY [facility] Last Admin: 04/03/18 11:22 Dose: 100 mg Zinc Sulfate (Zinc Sulfate 220 Mg Cap) 220 mg PO DAILY [facility] Last Admin: 04/03/18 11:22 Dose: 220 mg - Labs Labs: 04/04/18 06:00 03/28/18 10:19 PT 12.5 SECONDS (9.4-12.5) 12/09/17 10:00 INR 1.09 (0.93-1.08) H 12/09/17 10:00 APTT 28.3 Seconds (25.1-36.5) 11/30/17 05:30 - Constitutional Appears: Non-toxic, No Acute Distress - Head Exam Head Exam: ATRAUMATIC, NORMAL INSPECTION, NORMOCEPHALIC - Eye Exam Eye Exam: EOMI, PERRL - ENT Exam ENT Exam: Mucous Membranes Moist - Respiratory Exam Respiratory Exam: Clear to Ausculation Bilateral, NORMAL BREATHING PATTERN. absent: Rales, Rhonchi, Wheezes - Cardiovascular Exam Cardiovascular Exam: REGULAR RHYTHM, +S1, +S2 - GI/Abdominal Exam GI & Abdominal Exam: Soft, Normal Bowel Sounds. absent: Tenderness - Extremities Exam Extremities Exam: absent: Calf Tenderness, Pedal Edema, Tenderness - Neurological Exam Neurological Exam: Alert, Awake Additional comments: Motor and sensory grossly intact, able to move all four extremities past midline - Psychiatric Exam Psychiatric exam: Flat Affect - Skin Skin Exam: Dry, Warm Assessment and Plan - Assessment and Plan (Free Text) Assessment: 57yo male unknown PMHx admitted for AMS, right hip cellulitis, multifocal pneumonia, influenza A, strep viridians bacteremia with findings of stroke on MRI - acute vs. 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 Patient was treated for bacteremia with IV abx. Patient continues to refuse testing at this time. Guardianship establishment pending. Plan: Altered mental status - Currently at baseline mentation which waxes and wanes - Patient mentation clinically unchanged, able to answer simple questions - Delirium precautions; PT - patient refusing to participate - ASA/Lipitor Coag negative Staphylococcus bacteremia - Last bld clx negative 12/04/17 with completion of 6 week course of antibiotics - Monitor WBC, ESR, CRP weekly - Echocardiogram unable to rule out vegetations, family is unavailable for consent for TAHIR Stage 1 decubitus ulcer-improving - Patient refuses to get out of bed to chair - Refusing PT - Skin breakdown improving - Continue with Q2 turns, Wound care consulted - Folic acid, Thiamine, Zinc daily Colonic mass - CT Abd/Pelvis showing colonic mass and hepatic lesions - GI consulted: follow recs - Flex sig/colonoscopy refused by patient at this time - Family unable to be contacted for consent Diabetes mellitus type 2 in non-obese - Continue ISS low - Metformin 500mg BID - Monitor glucose - Carb consistent diet HTN - Lisinopril 10 daily - Stable, continue to monitor Affective disorder - Celexa 10mg PO Daily Constipation - Colace 100mg BID - Flat plat abdominal exam showing mild constipation Prophylaxis - Patient tolerating meals, no need for GI ppx - SCDs Dispo: Patient lacks decision making capacity and is unable to comprehend his diagnosis, medical treatment, potential benefit and risk associated with and without treatment. Guardianship paperwork being processed followed by potential placement. Court scheduled for 05/05/2018 concerning guardianship Case and plan discussed with attending <Deanna Schumacher - Last Filed: 04/04/18 16:16> Objective - Vital Signs/Intake and Output Vital Signs (last 24 hours): Temp Pulse Resp BP Pulse Ox 98.2 F 84 20 113/73 96 04/04/18 06:00 04/04/18 06:00 04/04/18 06:00 04/04/18 09:47 04/04/18 06:00 Intake and Output: 04/04/18 04/04/18 06:59 18:59 Intake Total 600 Balance 600 - Medications Medications: Current Medications Amlodipine Besylate (Norvasc) 10 mg PO DAILY [facility] Last Admin: 04/04/18 09:45 Dose: 10 mg Aspirin (Ecotrin) 81 mg PO DAILY [facility] Last Admin: 04/04/18 09:44 Dose: 81 mg Atorvastatin Calcium (Lipitor) 20 mg PO DIN [facility] Last Admin: 04/03/18 18:21 Dose: 20 mg Citalopram Hydrobromide (Celexa) 10 mg PO DAILY [facility] Last Admin: 04/04/18 09:44 Dose: 10 mg Docusate Sodium (Colace) 100 mg PO BID [facility] Last Admin: 04/04/18 13:40 Dose: 100 mg Folic Acid (Folic Acid) 1 mg PO DAILY [facility] Last Admin: 04/04/18 09:44 Dose: 1 mg Insulin Human Regular (Humulin R Low) 0 units SC [facility] PRN Reason: Protocol Last Admin: 04/04/18 12:02 Dose: Not Given Lisinopril (Zestril) 10 mg PO DAILY [facility] Last Admin: 04/04/18 09:47 Dose: 10 mg Metformin HCl (Glucophage) 500 mg PO BID [facility] Last Admin: 04/04/18 09:44 Dose: 500 mg Multivitamins/Minerals (Therapeutic-M Tab) 1 tab PO 0800 [facility] Last Admin: 04/04/18 09:47 Dose: 1 tab Ondansetron HCl (Zofran Inj) 4 mg IVP Q6H PRN PRN Reason: Nausea/Vomiting Last Admin: 03/28/18 11:06 Dose: 4 mg Polyethylene Glycol (Miralax) 17 gm PO DAILY [facility] Thiamine HCl (Vitamin B1 Tab) 100 mg PO DAILY [facility] Last Admin: 04/04/18 09:47 Dose: 100 mg Zinc Sulfate (Zinc Sulfate 220 Mg Cap) 220 mg PO DAILY [facility] Last Admin: 04/04/18 09:48 Dose: 220 mg - Labs Labs: 04/04/18 06:00 03/28/18 10:19 PT 12.5 SECONDS (9.4-12.5) 12/09/17 10:00 INR 1.09 (0.93-1.08) H 12/09/17 10:00 APTT 28.3 Seconds (25.1-36.5) 11/30/17 05:30 Attending/Attestation - Attestation I have personally seen and examined this patient.: Yes I have fully participated in the care of the patient.: Yes I have reviewed all pertinent clinical information, including history, physical exam and plan: Yes Notes (Text): 04/04/18 16:16 Medical record note made by the resident after discussion with my direction and input after the patient was personally seen and examined by me. I have reviewed the chart and agree that the record accurately reflects by personal performance of the history, physical exam, data review, and medical decision-making, in the course for the patient. I have also personally directed the plan of care.
[2018-04-04] MEDS: Multivitamin With Minerals Tab PO SCH (09:47)
--- NOTE | 2018-04-04 11:18 | RAD ---
HISTORY: Constipation COMPARISON: No prior. FINDINGS: BOWEL: Normal. No obstruction. No free air. Mild constipation BONES: Normal. OTHER FINDINGS: None. IMPRESSION: Mild constipation
--- NOTE | 2018-04-04 15:55 | CP.PCM.PN ---
Subjective - Date & Time of Evaluation Date of Evaluation: 04/04/18 Time of Evaluation: 14:00 - Subjective Subjective: Afebrile, not in distress. Objective - Vital Signs/Intake and Output Vital Signs (last 24 hours): Temp Pulse Resp BP Pulse Ox 98.2 F 84 20 113/73 96 04/04/18 06:00 04/04/18 06:00 04/04/18 06:00 04/04/18 06:00 04/04/18 06:00 - Medications Medications: Current Medications Amlodipine Besylate (Norvasc) 10 mg PO DAILY [facility] Last Admin: 04/03/18 11:21 Dose: 10 mg Aspirin (Ecotrin) 81 mg PO DAILY [facility] Last Admin: 04/03/18 11:21 Dose: 81 mg Atorvastatin Calcium (Lipitor) 20 mg PO DIN [facility] Last Admin: 04/03/18 18:21 Dose: 20 mg Citalopram Hydrobromide (Celexa) 10 mg PO DAILY [facility] Last Admin: 04/03/18 11:22 Dose: 10 mg Folic Acid (Folic Acid) 1 mg PO DAILY [facility] Last Admin: 04/03/18 11:21 Dose: 1 mg Insulin Human Regular (Humulin R Low) 0 units SC [facility] PRN Reason: Protocol Last Admin: 04/04/18 07:48 Dose: Not Given Lisinopril (Zestril) 10 mg PO DAILY [facility] Last Admin: 04/03/18 11:21 Dose: 10 mg Metformin HCl (Glucophage) 500 mg PO BID [facility] Last Admin: 04/03/18 18:21 Dose: 500 mg Multivitamins/Minerals (Therapeutic-M Tab) 1 tab PO 0800 [facility] Last Admin: 04/03/18 08:52 Dose: 1 tab Ondansetron HCl (Zofran Inj) 4 mg IVP Q6H PRN PRN Reason: Nausea/Vomiting Last Admin: 03/28/18 11:06 Dose: 4 mg Thiamine HCl (Vitamin B1 Tab) 100 mg PO DAILY [facility] Last Admin: 04/03/18 11:22 Dose: 100 mg Zinc Sulfate (Zinc Sulfate 220 Mg Cap) 220 mg PO DAILY [facility] Last Admin: 04/03/18 11:22 Dose: 220 mg - Labs Labs: 04/04/18 06:00 03/28/18 10:19 PT 12.5 SECONDS (9.4-12.5) 02/22/18 10:00 INR 1.09 (0.93-1.08) H 12/09/17 10:00 APTT 28.3 Seconds (25.1-36.5) 11/30/17 05:30 - Constitutional Appears: Chronically Ill - Head Exam Head Exam: NORMAL INSPECTION - Respiratory Exam Respiratory Exam: Decreased Breath Sounds - Cardiovascular Exam Cardiovascular Exam: +S1, +S2 - GI/Abdominal Exam GI & Abdominal Exam: Soft. absent: Tenderness Assessment and Plan - Assessment and Plan (Free Text) Plan: Assessment S/P sepsis due to strep viridans and CoNS bacteremia from right gluteal and back cellulitis S/P multifocal HCAP on top of Influenza A infection S/P Sammie infection of sacral area as well peripheral vascular disease Plan patient had completed 42 days of antibiotics on this admission - continue to monitor clinically off antibiotics since he is at risk for hospital-acquired infections
[2018-04-04] MEDS ORDERED: POLYETHYLENE GLYCOL 3350 17 GM/Dose PACKET PO SCH (16:15)
--- NOTE | 2018-04-05 07:31 | CP.PCM.PN ---
<Abriljean-paulOscar barakatn - Last Filed: 04/05/18 13:00> Subjective - Date & Time of Evaluation Date of Evaluation: 04/05/18 Time of Evaluation: 07:31 - Subjective Subjective: Medicine Progress note Patient seen and evaluated this AM. No acute events reported overnight. Patient clinically same. Patient reports no complaints at this time. +flatus, No BM. Denies Abdominal pain, chest pain, shortness of breath, nausea, vomiting, diarrhea. tolerating current diet. Objective - Vital Signs/Intake and Output Vital Signs (last 24 hours): Temp Pulse Resp BP Pulse Ox 98.6 F 92 H 18 115/71 98 04/04/18 18:40 04/04/18 18:40 04/04/18 18:40 04/04/18 18:40 04/04/18 18:40 Intake and Output: 04/05/18 04/05/18 06:59 18:59 Intake Total 780 0 Output Total 1 Balance 780 -1 - Medications Medications: Current Medications Amlodipine Besylate (Norvasc) 10 mg PO DAILY [facility] Last Admin: 04/04/18 09:45 Dose: 10 mg Aspirin (Ecotrin) 81 mg PO DAILY [facility] Last Admin: 04/04/18 09:44 Dose: 81 mg Atorvastatin Calcium (Lipitor) 20 mg PO DIN [facility] Last Admin: 04/04/18 18:01 Dose: 20 mg Citalopram Hydrobromide (Celexa) 10 mg PO DAILY [facility] Last Admin: 04/04/18 09:44 Dose: 10 mg Docusate Sodium (Colace) 100 mg PO BID [facility] Last Admin: 04/04/18 18:00 Dose: 100 mg Folic Acid (Folic Acid) 1 mg PO DAILY [facility] Last Admin: 04/04/18 09:44 Dose: 1 mg Insulin Human Regular (Humulin R Low) 0 units SC [facility] PRN Reason: Protocol Last Admin: 04/04/18 22:28 Dose: Not Given Lisinopril (Zestril) 10 mg PO DAILY [facility] Last Admin: 04/04/18 09:47 Dose: 10 mg Metformin HCl (Glucophage) 500 mg PO BID [facility] Last Admin: 04/04/18 18:00 Dose: 500 mg Multivitamins/Minerals (Therapeutic-M Tab) 1 tab PO 0800 [facility] Last Admin: 04/04/18 09:47 Dose: 1 tab Ondansetron HCl (Zofran Inj) 4 mg IVP Q6H PRN PRN Reason: Nausea/Vomiting Last Admin: 03/28/18 11:06 Dose: 4 mg Polyethylene Glycol (Miralax) 17 gm PO DAILY [facility] Last Admin: 04/04/18 18:01 Dose: 17 gm Thiamine HCl (Vitamin B1 Tab) 100 mg PO DAILY [facility] Last Admin: 04/04/18 09:47 Dose: 100 mg Zinc Sulfate (Zinc Sulfate 220 Mg Cap) 220 mg PO DAILY [facility] Last Admin: 04/04/18 09:48 Dose: 220 mg - Labs Labs: 04/04/18 06:00 03/28/18 10:19 PT 12.5 SECONDS (9.4-12.5) 12/09/17 10:00 INR 1.09 (0.93-1.08) H 12/09/17 10:00 APTT 28.3 Seconds (25.1-36.5) 11/30/17 05:30 - Constitutional Appears: Non-toxic, No Acute Distress - Head Exam Head Exam: ATRAUMATIC - Eye Exam Eye Exam: EOMI. absent: Scleral icterus - ENT Exam ENT Exam: Mucous Membranes Moist - Respiratory Exam Respiratory Exam: NORMAL BREATHING PATTERN. absent: Accessory Muscle Use, Respiratory Distress - Cardiovascular Exam Cardiovascular Exam: +S1, +S2. absent: Bradycardia, Tachycardia - GI/Abdominal Exam GI & Abdominal Exam: Soft. absent: Distended, Firm, Guarding, Rigid, Tenderness - Extremities Exam Additional comments: SCD in place - Neurological Exam Neurological Exam: Awake - Psychiatric Exam Psychiatric exam: Normal Affect - Skin Skin Exam: Intact, Warm Assessment and Plan - Assessment and Plan (Free Text) Assessment: 57yo male unknown PMHx admitted for AMS, right hip cellulitis, multifocal pneumonia, influenza A, strep viridians bacteremia with findings of stroke on MRI - acute vs. 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 Patient was treated for bacteremia with IV abx. Patient continues to refuse testing at this time. Started on bowel regiment Guardianship establishment pending. Plan: Altered mental status - Currently at baseline mentation which waxes and wanes - Patient mentation clinically unchanged, able to answer simple questions - Delirium precautions; PT - patient refusing to participate - ASA/Lipitor Coag negative Staphylococcus bacteremia - Last bld clx negative 12/04/17 with completion of 6 week course of antibiotics - Monitor WBC, ESR, CRP weekly - Echocardiogram unable to rule out vegetations, family is unavailable for consent for TAHIR Stage 1 decubitus ulcer-improving - Patient refuses to get out of bed to chair - Refusing PT - Skin breakdown improving - Continue with Q2 turns, Wound care consulted - Folic acid, Thiamine, Zinc daily Colonic mass - CT Abd/Pelvis showing colonic mass and hepatic lesions - GI consulted: follow recs - Flex sig/colonoscopy refused by patient at this time - Family unable to be contacted for consent Diabetes mellitus type 2 in non-obese - Continue ISS low - Metformin 500mg BID - Monitor glucose - Carb consistent diet HTN - Lisinopril 10 daily - Stable, continue to monitor Affective disorder - Celexa 10mg PO Daily Constipation - Colace 100mg BID - Flat plat abdominal exam showing mild constipation Prophylaxis - Patient tolerating meals, no need for GI ppx - SCDs Dispo: Patient lacks decision making capacity and is unable to comprehend his diagnosis, medical treatment, potential benefit and risk associated with and without treatment. Guardianship paperwork being processed followed by potential placement. Court scheduled for 05/05/2018 concerning guardianship Case and plan discussed with attending <Deanna Schumacher - Last Filed: 04/06/18 16:41> Objective - Vital Signs/Intake and Output Vital Signs (last 24 hours): Temp Pulse Resp BP Pulse Ox 97 F L 88 20 118/81 96 04/06/18 08:22 04/06/18 09:46 04/06/18 08:22 04/06/18 09:46 04/06/18 08:22 Intake and Output: 04/06/18 04/06/18 06:59 18:59 Intake Total 360 720 Balance 360 720 - Medications Medications: Current Medications Amlodipine Besylate (Norvasc) 10 mg PO DAILY [facility] Last Admin: 04/06/18 09:45 Dose: 10 mg Aspirin (Ecotrin) 81 mg PO DAILY [facility] Last Admin: 04/06/18 09:46 Dose: 81 mg Atorvastatin Calcium (Lipitor) 20 mg PO DIN [facility] Last Admin: 04/05/18 17:10 Dose: 20 mg Citalopram Hydrobromide (Celexa) 10 mg PO DAILY [facility] Last Admin: 04/06/18 09:46 Dose: 10 mg Docusate Sodium (Colace) 100 mg PO BID [facility] Last Admin: 04/06/18 09:44 Dose: 100 mg Folic Acid (Folic Acid) 1 mg PO DAILY [facility] Last Admin: 04/06/18 09:46 Dose: 1 mg Insulin Human Regular (Humulin R Low) 0 units SC [facility] PRN Reason: Protocol Last Admin: 04/06/18 11:48 Dose: 1 units Lisinopril (Zestril) 10 mg PO DAILY [facility] Last Admin: 04/06/18 09:46 Dose: 10 mg Metformin HCl (Glucophage) 500 mg PO BID [facility] Last Admin: 04/06/18 09:46 Dose: 500 mg Multivitamins/Minerals (Therapeutic-M Tab) 1 tab PO 0800 [facility] Last Admin: 04/06/18 09:00 Dose: 1 tab Ondansetron HCl (Zofran Inj) 4 mg IVP Q6H PRN PRN Reason: Nausea/Vomiting Last Admin: 03/28/18 11:06 Dose: 4 mg Polyethylene Glycol (Miralax) 17 gm PO BID [facility] Last Admin: 04/06/18 09:49 Dose: 17 gm Thiamine HCl (Vitamin B1 Tab) 100 mg PO DAILY [facility] Last Admin: 04/06/18 09:45 Dose: 100 mg Zinc Sulfate (Zinc Sulfate 220 Mg Cap) 220 mg PO DAILY [facility] Last Admin: 04/06/18 09:46 Dose: 220 mg - Labs Labs: 04/04/18 06:00 03/28/18 10:19 PT 12.5 SECONDS (9.4-12.5) 12/09/17 10:00 INR 1.09 (0.93-1.08) H 12/09/17 10:00 APTT 28.3 Seconds (25.1-36.5) 11/30/17 05:30 Attending/Attestation - Attestation I have personally seen and examined this patient.: Yes I have fully participated in the care of the patient.: Yes I have reviewed all pertinent clinical information, including history, physical exam and plan: Yes Notes (Text): 04/06/18 16:41 Medical record note made by the resident after discussion with my direction and input after the patient was personally seen and examined by me. I have reviewed the chart and agree that the record accurately reflects by personal performance of the history, physical exam, data review, and medical decision-making, in the course for the patient. I have also personally directed the plan of care.
[2018-04-05] MEDS: Insulin Reg-LOW-Coverage SC SCH ×4 (08:30→23:13)
[2018-04-05] MEDS: POLYETHYLENE GLYCOL 3350 17 GM/Dose PACKET PO SCH ×2 (09:01→17:10)
[2018-04-05] MEDS: Multivitamin With Minerals Tab PO SCH (09:02)
--- NOTE | 2018-04-05 22:53 | PN ---
DATE: 04/05/2018 SUBJECTIVE: The patient was seen earlier today. No fevers or chills. PHYSICAL EXAMINATION: VITAL SIGNS: Temperature is 97, blood pressure is 120/70, respiratory rate of 20. HEENT: Unremarkable. NECK: Supple. LUNGS: Have decreased breath sounds. HEART: Normal S1, S2. ABDOMEN: Soft, nontender. LABORATORY DATA: Reveals white count of 8.7, hemoglobin of 11, platelets are 337. ASSESSMENT AND PLAN: This is a 57-year-old male who was seen earlier today in [facility], bed 1 who was admitted initially with sepsis, Streptococcus viridans and coag-negative Staphylococcus bacteremia from a right gluteal and back cellulitis, status post multifocal healthcare-associated pneumonia on top of influenza A, completed 42 days of antibiotics on admission. Currently, off of antibiotics, afebrile. The patient is at risk for developing nosocomial infections. Daniel Torres MD
[2018-04-06] MEDS: Insulin Reg-LOW-Coverage SC SCH ×4 (08:10→21:21)
[2018-04-06] MEDS: Multivitamin With Minerals Tab PO SCH (09:00)
[2018-04-06] MEDS: POLYETHYLENE GLYCOL 3350 17 GM/Dose PACKET PO SCH ×2 (09:49→17:53)
--- NOTE | 2018-04-06 11:53 | CP.PCM.PN ---
<EricOscar barakatn - Last Filed: 04/06/18 14:09> Subjective - Date & Time of Evaluation Date of Evaluation: 04/06/18 Time of Evaluation: 09:30 - Subjective Subjective: Medicine Progress note Patient seen and evaluated this AM. No acute events reported overnight. Patient clinically same. Patient reports no complaints at this time. +flatus, No BM x3 days despite bowel regiment. Denies Abdominal pain, chest pain, shortness of breath, nausea, vomiting, diarrhea. tolerating current diet. Objective - Vital Signs/Intake and Output Vital Signs (last 24 hours): Temp Pulse Resp BP Pulse Ox 97 F L 88 20 118/81 96 04/06/18 08:22 04/06/18 09:46 04/06/18 08:22 04/06/18 09:46 04/06/18 08:22 Intake and Output: 04/06/18 04/06/18 06:59 18:59 Intake Total 360 120 Balance 360 120 - Medications Medications: Current Medications Amlodipine Besylate (Norvasc) 10 mg PO DAILY [facility] Last Admin: 04/06/18 09:45 Dose: 10 mg Aspirin (Ecotrin) 81 mg PO DAILY [facility] Last Admin: 04/06/18 09:46 Dose: 81 mg Atorvastatin Calcium (Lipitor) 20 mg PO DIN [facility] Last Admin: 04/05/18 17:10 Dose: 20 mg Citalopram Hydrobromide (Celexa) 10 mg PO DAILY [facility] Last Admin: 04/06/18 09:46 Dose: 10 mg Docusate Sodium (Colace) 100 mg PO BID [facility] Last Admin: 04/06/18 09:44 Dose: 100 mg Folic Acid (Folic Acid) 1 mg PO DAILY [facility] Last Admin: 04/06/18 09:46 Dose: 1 mg Insulin Human Regular (Humulin R Low) 0 units SC [facility] PRN Reason: Protocol Last Admin: 04/06/18 11:48 Dose: 1 units Lisinopril (Zestril) 10 mg PO DAILY [facility] Last Admin: 04/06/18 09:46 Dose: 10 mg Metformin HCl (Glucophage) 500 mg PO BID [facility] Last Admin: 04/06/18 09:46 Dose: 500 mg Multivitamins/Minerals (Therapeutic-M Tab) 1 tab PO 0800 [facility] Last Admin: 04/06/18 09:00 Dose: 1 tab Ondansetron HCl (Zofran Inj) 4 mg IVP Q6H PRN PRN Reason: Nausea/Vomiting Last Admin: 03/28/18 11:06 Dose: 4 mg Polyethylene Glycol (Miralax) 17 gm PO BID [facility] Last Admin: 04/06/18 09:49 Dose: 17 gm Thiamine HCl (Vitamin B1 Tab) 100 mg PO DAILY [facility] Last Admin: 04/06/18 09:45 Dose: 100 mg Zinc Sulfate (Zinc Sulfate 220 Mg Cap) 220 mg PO DAILY [facility] Last Admin: 04/06/18 09:46 Dose: 220 mg - Labs Labs: 04/04/18 06:00 03/28/18 10:19 PT 12.5 SECONDS (9.4-12.5) 12/09/17 10:00 INR 1.09 (0.93-1.08) H 12/09/17 10:00 APTT 28.3 Seconds (25.1-36.5) 11/30/17 05:30 - Constitutional Appears: Non-toxic, No Acute Distress, Older Than Stated Age - Head Exam Head Exam: ATRAUMATIC - Eye Exam Eye Exam: EOMI. absent: Scleral icterus Pupil Exam: PERRL - ENT Exam ENT Exam: Mucous Membranes Moist - Respiratory Exam Respiratory Exam: NORMAL BREATHING PATTERN. absent: Accessory Muscle Use, Rales , Rhonchi, Wheezes, Respiratory Distress - Cardiovascular Exam Cardiovascular Exam: REGULAR RHYTHM, RRR, +S1, +S2. absent: Bradycardia, Tachycardia - GI/Abdominal Exam GI & Abdominal Exam: Soft. absent: Firm, Guarding, Rigid, Tenderness, Rebound - Extremities Exam Extremities Exam: Normal Inspection. absent: Calf Tenderness Additional comments: DEE marcanojulián SCD in place - Neurological Exam Neurological Exam: Awake - Psychiatric Exam Psychiatric exam: Normal Affect - Skin Skin Exam: Intact, Warm Assessment and Plan - Assessment and Plan (Free Text) Assessment: 57yo male unknown PMHx admitted for AMS, right hip cellulitis, multifocal pneumonia, influenza A, strep viridians bacteremia with findings of stroke on MRI - acute vs. 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 Patient was treated for bacteremia with IV abx. Patient continues to refuse testing at this time. Started on bowel regiment. Guardianship establishment pending. Plan: Altered mental status - Currently at baseline mentation which waxes and wanes - Patient mentation clinically unchanged, able to answer simple questions - Delirium precautions; PT - patient refusing to participate - ASA/Lipitor Coag negative Staphylococcus bacteremia - Last bld clx negative 12/04/17 with completion of 6 week course of antibiotics - Monitor WBC, ESR, CRP weekly - Echocardiogram unable to rule out vegetations, family is unavailable for consent for TAHIR Stage 1 decubitus ulcer-improving - Patient refuses to get out of bed to chair - Refusing PT - Skin breakdown improving - Continue with Q2 turns, Wound care consulted - Folic acid, Thiamine, Zinc daily Colonic mass - CT Abd/Pelvis showing colonic mass and hepatic lesions - GI consulted: follow recs - Flex sig/colonoscopy refused by patient at this time - Family unable to be contacted for consent Diabetes mellitus type 2 in non-obese - Continue ISS low - Metformin 500mg BID - Monitor glucose - Carb consistent diet HTN - Lisinopril 10 daily - Stable, continue to monitor Affective disorder - Celexa 10mg PO Daily Constipation - Colace 100mg BID - Flat plat abdominal exam showing mild constipation - soap water enema today Prophylaxis - Patient tolerating meals, no need for GI ppx - SCDs Dispo: Patient lacks decision making capacity and is unable to comprehend his diagnosis, medical treatment, potential benefit and risk associated with and without treatment. Guardianship paperwork being processed followed by potential placement. Court scheduled for 05/05/2018 concerning guardianship Case and plan discussed with attending <Deanna Schumacher - Last Filed: 04/06/18 16:58> Objective - Vital Signs/Intake and Output Vital Signs (last 24 hours): Temp Pulse Resp BP Pulse Ox 97 F L 88 20 118/81 96 04/06/18 08:22 04/06/18 09:46 04/06/18 08:22 04/06/18 09:46 04/06/18 08:22 Intake and Output: 04/06/18 04/06/18 06:59 18:59 Intake Total 360 720 Balance 360 720 - Medications Medications: Current Medications Amlodipine Besylate (Norvasc) 10 mg PO DAILY [facility] Last Admin: 04/06/18 09:45 Dose: 10 mg Aspirin (Ecotrin) 81 mg PO DAILY [facility] Last Admin: 04/06/18 09:46 Dose: 81 mg Atorvastatin Calcium (Lipitor) 20 mg PO DIN [facility] Last Admin: 04/05/18 17:10 Dose: 20 mg Citalopram Hydrobromide (Celexa) 10 mg PO DAILY [facility] Last Admin: 04/06/18 09:46 Dose: 10 mg Docusate Sodium (Colace) 100 mg PO BID [facility] Last Admin: 04/06/18 09:44 Dose: 100 mg Folic Acid (Folic Acid) 1 mg PO DAILY [facility] Last Admin: 04/06/18 09:46 Dose: 1 mg Insulin Human Regular (Humulin R Low) 0 units SC [facility] PRN Reason: Protocol Last Admin: 04/06/18 11:48 Dose: 1 units Lisinopril (Zestril) 10 mg PO DAILY [facility] Last Admin: 04/06/18 09:46 Dose: 10 mg Metformin HCl (Glucophage) 500 mg PO BID [facility] Last Admin: 04/06/18 09:46 Dose: 500 mg Multivitamins/Minerals (Therapeutic-M Tab) 1 tab PO 0800 [facility] Last Admin: 04/06/18 09:00 Dose: 1 tab Ondansetron HCl (Zofran Inj) 4 mg IVP Q6H PRN PRN Reason: Nausea/Vomiting Last Admin: 03/28/18 11:06 Dose: 4 mg Polyethylene Glycol (Miralax) 17 gm PO BID [facility] Last Admin: 04/06/18 09:49 Dose: 17 gm Thiamine HCl (Vitamin B1 Tab) 100 mg PO DAILY [facility] Last Admin: 04/06/18 09:45 Dose: 100 mg Zinc Sulfate (Zinc Sulfate 220 Mg Cap) 220 mg PO DAILY [facility] Last Admin: 04/06/18 09:46 Dose: 220 mg - Labs Labs: 04/04/18 06:00 03/28/18 10:19 PT 12.5 SECONDS (9.4-12.5) 12/09/17 10:00 INR 1.09 (0.93-1.08) H 12/09/17 10:00 APTT 28.3 Seconds (25.1-36.5) 11/30/17 05:30 Attending/Attestation - Attestation I have personally seen and examined this patient.: Yes I have fully participated in the care of the patient.: Yes I have reviewed all pertinent clinical information, including history, physical exam and plan: Yes Notes (Text): 04/06/18 16:42 Medical record note made by the resident after discussion with my direction and input after the patient was personally seen and examined by me. I have reviewed the chart and agree that the record accurately reflects by personal performance of the history, physical exam, data review, and medical decision-making, in the course for the patient. I have also personally directed the plan of care. 57 yrs old male , S/P sepsis due to strep viridans and cogulase negative bacteremia from right gluteal and back cellulitis, SP treatment for multifocal HCAP on top of Influenza A infection and SP treatment for alley infection of sacral area as well.Patient is stable at his base line.Mental status is at base line, Patient is awaiting for placement. Prognosis is guarded.
--- NOTE | 2018-04-06 20:29 | PN ---
DATE: 04/06/2018 SUBJECTIVE: The patient is in bed, in no acute distress. PHYSICAL EXAMINATION: VITAL SIGNS: On exam, temperature is 97, blood pressure is 118/80, respiratory 20, heart rate of 88. HEENT: Unremarkable. NECK: Supple. LUNGS: Have decreased breath sounds. HEART: Normal S1 and S2. ABDOMEN: Soft, nontender. LABORATORY DATA: Reveals a white count of 8.7, hemoglobin of 11 and creatinine is 0.6. ASSESSMENT AND PLAN: This is a 57-year-old, who was seen earlier today, who was initially admitted with sepsis with Streptococcus viridans and coagulase-negative staphylococcus bacteremia from right gluteal and back cellulitis, with multifocal healthcare-associated pneumonia on top of influenza A, with completed 42 days of antibiotics. Currently off of antibiotics, afebrile. The patient is at risk for developing nosocomial infections. Daniel Torres MD
[2018-04-07] MEDS: Insulin Reg-LOW-Coverage SC SCH ×4 (07:21→21:06)
--- NOTE | 2018-04-07 07:33 | CP.PCM.PN ---
<Chico Meade - Last Filed: 04/07/18 13:50> Subjective - Date & Time of Evaluation Date of Evaluation: 04/07/18 Time of Evaluation: 07:33 - Subjective Subjective: Medicine Progress note Patient seen and examined at bedside. Patient had multiple large BM s/p soap water enema. Denies ABD pain. No acute complaints. Mental status baseline. Clinically stable Objective - Vital Signs/Intake and Output Vital Signs (last 24 hours): Temp Pulse Resp BP Pulse Ox 97.2 F L 93 H 18 120/72 97 04/06/18 18:00 04/06/18 18:00 04/06/18 18:00 04/06/18 18:00 04/06/18 18:00 Intake and Output: 04/07/18 04/07/18 06:59 18:59 Intake Total 840 Balance 840 - Medications Medications: Current Medications Amlodipine Besylate (Norvasc) 10 mg PO DAILY [facility] Last Admin: 04/06/18 09:45 Dose: 10 mg Aspirin (Ecotrin) 81 mg PO DAILY [facility] Last Admin: 04/06/18 09:46 Dose: 81 mg Atorvastatin Calcium (Lipitor) 20 mg PO DIN [facility] Last Admin: 04/06/18 17:53 Dose: 20 mg Citalopram Hydrobromide (Celexa) 10 mg PO DAILY [facility] Last Admin: 04/06/18 09:46 Dose: 10 mg Docusate Sodium (Colace) 100 mg PO BID [facility] Last Admin: 04/06/18 17:53 Dose: Not Given Folic Acid (Folic Acid) 1 mg PO DAILY [facility] Last Admin: 04/06/18 09:46 Dose: 1 mg Insulin Human Regular (Humulin R Low) 0 units SC [facility] PRN Reason: Protocol Last Admin: 04/07/18 07:21 Dose: Not Given Lisinopril (Zestril) 10 mg PO DAILY [facility] Last Admin: 04/06/18 09:46 Dose: 10 mg Metformin HCl (Glucophage) 500 mg PO BID [facility] Last Admin: 04/06/18 17:53 Dose: 500 mg Multivitamins/Minerals (Therapeutic-M Tab) 1 tab PO 0800 [facility] Last Admin: 04/06/18 09:00 Dose: 1 tab Ondansetron HCl (Zofran Inj) 4 mg IVP Q6H PRN PRN Reason: Nausea/Vomiting Last Admin: 03/28/18 11:06 Dose: 4 mg Polyethylene Glycol (Miralax) 17 gm PO BID [facility] Last Admin: 04/06/18 17:53 Dose: Not Given Thiamine HCl (Vitamin B1 Tab) 100 mg PO DAILY [facility] Last Admin: 04/06/18 09:45 Dose: 100 mg Zinc Sulfate (Zinc Sulfate 220 Mg Cap) 220 mg PO DAILY [facility] Last Admin: 04/06/18 09:46 Dose: 220 mg - Labs Labs: 04/04/18 06:00 03/28/18 10:19 PT 12.5 SECONDS (9.4-12.5) 12/09/17 10:00 INR 1.09 (0.93-1.08) H 12/09/17 10:00 APTT 28.3 Seconds (25.1-36.5) 11/30/17 05:30 - Constitutional Appears: Non-toxic, No Acute Distress - Head Exam Head Exam: ATRAUMATIC - Eye Exam Eye Exam: EOMI. absent: Scleral icterus - ENT Exam ENT Exam: Mucous Membranes Moist - Respiratory Exam Respiratory Exam: NORMAL BREATHING PATTERN. absent: Accessory Muscle Use, Rales, Rhonchi, Respiratory Distress - Cardiovascular Exam Cardiovascular Exam: +S1, +S2. absent: Bradycardia, Tachycardia - GI/Abdominal Exam GI & Abdominal Exam: Soft. absent: Firm, Guarding, Rigid, Tenderness, Mass, Rebound - Extremities Exam Extremities Exam: Normal Inspection. absent: Calf Tenderness - Neurological Exam Neurological Exam: Awake - Psychiatric Exam Psychiatric exam: Normal Affect - Skin Skin Exam: Intact, Warm Assessment and Plan - Assessment and Plan (Free Text) Assessment: 57yo male unknown PMHx admitted for AMS, right hip cellulitis, multifocal pneumonia, influenza A, strep viridians bacteremia with findings of stroke on MRI - acute vs. 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 Patient was treated for bacteremia with IV abx. Patient continues to refuse testing at this time. Started on bowel regiment. Guardianship establishment pending. Plan: Altered mental status - Currently at baseline mentation which waxes and wanes - Patient mentation clinically unchanged, able to answer simple questions - Delirium precautions; PT - patient refusing to participate - ASA/Lipitor Coag negative Staphylococcus bacteremia - Last bld clx negative 12/04/17 with completion of 6 week course of antibiotics - Monitor WBC, ESR, CRP weekly - Echocardiogram unable to rule out vegetations, family is unavailable for consent for TAHIR Stage 1 decubitus ulcer-improving - Patient refuses to get out of bed to chair - Refusing PT - Skin breakdown improving - Continue with Q2 turns, Wound care consulted - Folic acid, Thiamine, Zinc daily Colonic mass - CT Abd/Pelvis showing colonic mass and hepatic lesions - GI consulted: follow recs - Flex sig/colonoscopy refused by patient at this time - Family unable to be contacted for consent Diabetes mellitus type 2 in non-obese - Continue ISS low - Metformin 500mg BID - Monitor glucose - Carb consistent diet HTN - Lisinopril 10 daily - Stable, continue to monitor Affective disorder - Celexa 10mg PO Daily Constipation - Colace 100mg BID - Flat plat abdominal exam showing mild constipation - s/p soap water enema; subsequent multiple large BM Prophylaxis - Patient tolerating meals, no need for GI ppx - SCDs Dispo: Patient lacks decision making capacity and is unable to comprehend his diagnosis, medical treatment, potential benefit and risk associated with and without treatment. Guardianship paperwork being processed followed by potential placement. Court scheduled for 05/05/2018 concerning guardianship discussed with attending PGY1 <Graeme Lang - Last Filed: 07/16/18 18:14> Attending/Attestation - Attestation I have personally seen and examined this patient.: Yes I have fully participated in the care of the patient.: Yes I have reviewed all pertinent clinical information, including history, physical exam and plan: Yes Notes (Text): Altered mental status - Currently at baseline mentation which waxes and wanes Coag negative Staphylococcus bacteremia - Last bld clx negative 12/04/17 with completion of 6 week course of antibiotics Stage 1 decubitus ulcer-improving - Patient refuses to get out of bed to chair Colonic mass - CT Abd/Pelvis showing colonic mass and hepatic lesions Diabetes mellitus type 2
[2018-04-07] MEDS: Multivitamin With Minerals Tab PO SCH (09:00)
[2018-04-07] MEDS: POLYETHYLENE GLYCOL 3350 17 GM/Dose PACKET PO SCH ×2 (09:45→18:25)
--- NOTE | 2018-04-08 00:14 | PN ---
DATE: 04/07/2018 SUBJECTIVE: The patient is in bed, in no acute distress, nontoxic. PHYSICAL EXAMINATION: VITAL SIGNS: Temperature is 98, blood pressure is 140/80, respiratory rate of 18. HEENT: Examination of HEENT is unremarkable. NECK: Supple. LUNGS: Have decreased breath sounds. HEART: Normal S1, S2. ABDOMEN: Soft. LABORATORY DATA: Laboratory examination reveals a white count of 8.7, hemoglobin of 11. Chemistries are noted. Review of orders reveals the patient to have no antibiotics. ASSESSMENT AND PLAN: A 57-year-old seen earlier today who was admitted initially with sepsis with Streptococcus viridans and coag-negative Staphylococcus bacteremia from a right gluteal abscess and back cellulitis, also with multifocal healthcare-associated pneumonia on top of influenza A. Completed 42 days of antibiotics. Currently off of antibiotics, afebrile. The patient is at risk for developing nosocomial infections. Daniel Torres MD
[2018-04-08] MEDS: Insulin Reg-LOW-Coverage SC SCH ×4 (07:34→21:05)
[2018-04-08] MEDS: Multivitamin With Minerals Tab PO SCH (09:21)
[2018-04-08] MEDS: POLYETHYLENE GLYCOL 3350 17 GM/Dose PACKET PO SCH ×2 (09:22→17:45)
--- NOTE | 2018-04-08 09:37 | CP.PCM.PN ---
<Rocael Bowie - Last Filed: 04/08/18 09:39> Subjective - Date & Time of Evaluation Date of Evaluation: 04/08/18 Time of Evaluation: 09:34 - Subjective Subjective: Patient seen and evaluated. No complaints at this time. Clinically unchanged Objective - Vital Signs/Intake and Output Vital Signs (last 24 hours): Temp Pulse Resp BP Pulse Ox 98.0 F 98 H 18 113/78 97 04/07/18 18:00 04/08/18 09:22 04/07/18 18:00 04/08/18 09:22 04/07/18 18:00 Intake and Output: 04/08/18 04/08/18 06:59 18:59 Intake Total 0 Balance 0 - Medications Medications: Current Medications Amlodipine Besylate (Norvasc) 10 mg PO DAILY [facility] Last Admin: 04/08/18 09:21 Dose: 10 mg Aspirin (Ecotrin) 81 mg PO DAILY [facility] Last Admin: 04/08/18 09:21 Dose: 81 mg Atorvastatin Calcium (Lipitor) 20 mg PO DIN [facility] Last Admin: 04/07/18 18:24 Dose: 20 mg Citalopram Hydrobromide (Celexa) 10 mg PO DAILY [facility] Last Admin: 04/08/18 09:21 Dose: 10 mg Docusate Sodium (Colace) 100 mg PO BID [facility] Last Admin: 04/08/18 09:21 Dose: 100 mg Folic Acid (Folic Acid) 1 mg PO DAILY [facility] Last Admin: 04/08/18 09:21 Dose: 1 mg Insulin Human Regular (Humulin R Low) 0 units SC [facility] PRN Reason: Protocol Last Admin: 04/08/18 07:34 Dose: Not Given Lisinopril (Zestril) 10 mg PO DAILY [facility] Last Admin: 04/08/18 09:22 Dose: 10 mg Metformin HCl (Glucophage) 500 mg PO BID [facility] Last Admin: 04/08/18 09:20 Dose: 500 mg Multivitamins/Minerals (Therapeutic-M Tab) 1 tab PO 0800 [facility] Last Admin: 04/08/18 09:21 Dose: 1 tab Ondansetron HCl (Zofran Odt) 4 mg PO Q8H PRN PRN Reason: Nausea/Vomiting Last Admin: 04/08/18 04:03 Dose: 4 mg Polyethylene Glycol (Miralax) 17 gm PO BID [facility] Last Admin: 04/08/18 09:22 Dose: 17 gm Thiamine HCl (Vitamin B1 Tab) 100 mg PO DAILY [facility] Last Admin: 04/08/18 09:21 Dose: 100 mg Zinc Sulfate (Zinc Sulfate 220 Mg Cap) 220 mg PO DAILY [facility] Last Admin: 04/08/18 09:20 Dose: 220 mg - Labs Labs: 04/04/18 06:00 03/28/18 10:19 PT 12.5 SECONDS (9.4-12.5) 12/09/17 10:00 INR 1.09 (0.93-1.08) H 12/09/17 10:00 APTT 28.3 Seconds (25.1-36.5) 11/30/17 05:30 - Constitutional Appears: No Acute Distress - Head Exam Head Exam: ATRAUMATIC, NORMAL INSPECTION, NORMOCEPHALIC - Eye Exam Eye Exam: EOMI, PERRL - ENT Exam ENT Exam: Mucous Membranes Moist - Neck Exam Neck Exam: Full ROM - Respiratory Exam Respiratory Exam: Clear to Ausculation Bilateral, NORMAL BREATHING PATTERN - Cardiovascular Exam Cardiovascular Exam: REGULAR RHYTHM, +S1, +S2 - GI/Abdominal Exam GI & Abdominal Exam: Soft, Diminished Bowel Sounds, Normal Bowel Sounds. absent: Tenderness - Extremities Exam Extremities Exam: absent: Calf Tenderness, Pedal Edema - Neurological Exam Neurological Exam: Alert, Awake, Normal Gait, Oriented x3 Neuro motor strength exam: Left Upper Extremity: 5, Right Upper Extremity: 5, Left Lower Extremity: 5, Right Lower Extremity: 5 - Psychiatric Exam Psychiatric exam: Flat Affect - Skin Skin Exam: Dry, Warm Assessment and Plan - Assessment and Plan (Free Text) Assessment: 57yo male unknown PMHx admitted for AMS, right hip cellulitis, multifocal pneumonia, influenza A, strep viridians bacteremia with findings of stroke on MRI - acute vs. 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 Patient was treated for bacteremia with IV abx. Patient continues to refuse testing at this time. Started on bowel regiment Guardianship establishment pending. Plan: Altered mental status - Currently at baseline mentation which waxes and wanes - Patient mentation clinically unchanged, able to answer simple questions - Delirium precautions; PT - patient refusing to participate - ASA/Lipitor Coag negative Staphylococcus bacteremia - Last bld clx negative 12/04/17 with completion of 6 week course of antibiotics - Monitor WBC, ESR, CRP weekly - Echocardiogram unable to rule out vegetations, family is unavailable for consent for TAHIR Stage 1 decubitus ulcer-improving - Patient refuses to get out of bed to chair - Refusing PT - Skin breakdown improving - Continue with Q2 turns, Wound care consulted - Folic acid, Thiamine, Zinc daily Colonic mass - CT Abd/Pelvis showing colonic mass and hepatic lesions - GI consulted: follow recs - Flex sig/colonoscopy refused by patient at this time - Family unable to be contacted for consent Diabetes mellitus type 2 in non-obese - Continue ISS low - Metformin 500mg BID - Monitor glucose - Carb consistent diet HTN - Lisinopril 10 daily - Stable, continue to monitor Affective disorder - Celexa 10mg PO Daily Constipation - Colace 100mg BID - Flat plat abdominal exam showing mild constipation Prophylaxis - Patient tolerating meals, no need for GI ppx - SCDs Dispo: Patient lacks decision making capacity and is unable to comprehend his diagnosis, medical treatment, potential benefit and risk associated with and without treatment. Guardianship paperwork being processed followed by potential placement. Court scheduled for 05/05/2018 concerning guardianship Case and plan discussed with attending <Graeme Lang - Last Filed: 07/16/18 18:14> Attending/Attestation - Attestation I have personally seen and examined this patient.: Yes I have fully participated in the care of the patient.: Yes I have reviewed all pertinent clinical information, including history, physical exam and plan: Yes Notes (Text): Altered mental status - Currently at baseline mentation which waxes and wanes Coag negative Staphylococcus bacteremia - Last bld clx negative 12/04/17 with completion of 6 week course of antibiotics Stage 1 decubitus ulcer-improving - Patient refuses to get out of bed to chair Colonic mass - CT Abd/Pelvis showing colonic mass and hepatic lesions Diabetes mellitus type 2
--- NOTE | 2018-04-08 19:31 | CP.PCM.PN ---
Subjective - Date & Time of Evaluation Date of Evaluation: 04/08/18 Time of Evaluation: 10:00 - Subjective Subjective: No fevers, not in distress. Objective - Vital Signs/Intake and Output Vital Signs (last 24 hours): Temp Pulse Resp BP Pulse Ox 98.0 F 95 H 18 140/82 97 04/07/18 18:00 04/07/18 18:00 04/07/18 18:00 04/07/18 18:00 04/07/18 18:00 Intake and Output: 04/08/18 04/08/18 06:59 18:59 Intake Total 0 Balance 0 - Medications Medications: Current Medications Amlodipine Besylate (Norvasc) 10 mg PO DAILY [facility] Last Admin: 04/07/18 09:44 Dose: 10 mg Aspirin (Ecotrin) 81 mg PO DAILY [facility] Last Admin: 04/07/18 09:45 Dose: 81 mg Atorvastatin Calcium (Lipitor) 20 mg PO DIN [facility] Last Admin: 04/07/18 18:24 Dose: 20 mg Citalopram Hydrobromide (Celexa) 10 mg PO DAILY [facility] Last Admin: 04/07/18 09:45 Dose: 10 mg Docusate Sodium (Colace) 100 mg PO BID [facility] Last Admin: 04/07/18 18:25 Dose: 100 mg Folic Acid (Folic Acid) 1 mg PO DAILY [facility] Last Admin: 04/07/18 09:44 Dose: 1 mg Insulin Human Regular (Humulin R Low) 0 units SC ACHS [facility] PRN Reason: Protocol Last Admin: 04/08/18 07:34 Dose: Not Given Lisinopril (Zestril) 10 mg PO DAILY [facility] Last Admin: 04/07/18 09:45 Dose: 10 mg Metformin HCl (Glucophage) 500 mg PO BID [facility] Last Admin: 04/07/18 18:24 Dose: 500 mg Multivitamins/Minerals (Therapeutic-M Tab) 1 tab PO 0800 [facility] Last Admin: 04/07/18 09:00 Dose: 1 tab Ondansetron HCl (Zofran Odt) 4 mg PO Q8H PRN PRN Reason: Nausea/Vomiting Last Admin: 04/08/18 04:03 Dose: 4 mg Polyethylene Glycol (Miralax) 17 gm PO BID [facility] Last Admin: 04/07/18 18:25 Dose: 17 gm Thiamine HCl (Vitamin B1 Tab) 100 mg PO DAILY [facility] Last Admin: 04/07/18 09:44 Dose: 100 mg Zinc Sulfate (Zinc Sulfate 220 Mg Cap) 220 mg PO DAILY [facility] Last Admin: 04/07/18 09:45 Dose: 220 mg - Labs Labs: 04/04/18 06:00 03/28/18 10:19 PT 12.5 SECONDS (9.4-12.5) 12/09/17 10:00 INR 1.09 (0.93-1.08) H 12/09/17 10:00 APTT 28.3 Seconds (25.1-36.5) 11/30/17 05:30 - Constitutional Appears: Chronically Ill - Head Exam Head Exam: NORMAL INSPECTION - Respiratory Exam Respiratory Exam: Decreased Breath Sounds - Cardiovascular Exam Cardiovascular Exam: +S1, +S2 - GI/Abdominal Exam GI & Abdominal Exam: Soft. absent: Tenderness Assessment and Plan - Assessment and Plan (Free Text) Plan: Assessment S/P sepsis due to strep viridans and CoNS bacteremia from right gluteal and back cellulitis S/P multifocal HCAP on top of Influenza A infection S/P Sammie infection of sacral area as well peripheral vascular disease Plan patient had completed 42 days of antibiotics on this admission - continue to monitor clinically off antibiotics since he is at risk for healthcare- associated infections
[2018-04-09] MEDS: Insulin Reg-LOW-Coverage SC SCH ×4 (09:01→21:49)
[2018-04-09] MEDS: Multivitamin With Minerals Tab PO SCH (10:57)
[2018-04-09] MEDS: POLYETHYLENE GLYCOL 3350 17 GM/Dose PACKET PO SCH ×2 (10:57→17:47)
--- NOTE | 2018-04-09 11:42 | CP.PCM.PN ---
Subjective - Date & Time of Evaluation Date of Evaluation: 04/09/18 Time of Evaluation: 09:50 - Subjective Subjective: Afebrile, comfortable. Objective - Vital Signs/Intake and Output Vital Signs (last 24 hours): Temp Pulse Resp BP Pulse Ox 97.0 F L 95 H 20 119/71 98 04/09/18 06:00 04/09/18 06:00 04/09/18 06:00 04/09/18 06:00 04/09/18 06:00 Intake and Output: 04/09/18 04/09/18 06:59 18:59 Intake Total 1080 Balance 1080 - Medications Medications: Current Medications Amlodipine Besylate (Norvasc) 10 mg PO DAILY [facility] Last Admin: 04/08/18 09:21 Dose: 10 mg Aspirin (Ecotrin) 81 mg PO DAILY [facility] Last Admin: 04/08/18 09:21 Dose: 81 mg Atorvastatin Calcium (Lipitor) 20 mg PO DIN [facility] Last Admin: 04/08/18 17:45 Dose: 20 mg Citalopram Hydrobromide (Celexa) 10 mg PO DAILY [facility] Last Admin: 04/08/18 09:21 Dose: 10 mg Docusate Sodium (Colace) 100 mg PO BID [facility] Last Admin: 04/08/18 17:45 Dose: 100 mg Folic Acid (Folic Acid) 1 mg PO DAILY [facility] Last Admin: 04/08/18 09:21 Dose: 1 mg Insulin Human Regular (Humulin R Low) 0 units SC ACHS [facility] PRN Reason: Protocol Last Admin: 04/09/18 09:01 Dose: Not Given Lisinopril (Zestril) 10 mg PO DAILY [facility] Last Admin: 04/08/18 09:22 Dose: 10 mg Metformin HCl (Glucophage) 500 mg PO BID [facility] Last Admin: 04/08/18 17:45 Dose: 500 mg Multivitamins/Minerals (Therapeutic-M Tab) 1 tab PO 0800 [facility] Last Admin: 04/08/18 09:21 Dose: 1 tab Ondansetron HCl (Zofran Odt) 4 mg PO Q8H PRN PRN Reason: Nausea/Vomiting Last Admin: 04/08/18 04:03 Dose: 4 mg Polyethylene Glycol (Miralax) 17 gm PO BID [facility] Last Admin: 04/08/18 17:45 Dose: 17 gm Thiamine HCl (Vitamin B1 Tab) 100 mg PO DAILY [facility] Last Admin: 04/08/18 09:21 Dose: 100 mg Zinc Sulfate (Zinc Sulfate 220 Mg Cap) 220 mg PO DAILY [facility] Last Admin: 04/08/18 09:20 Dose: 220 mg - Labs Labs: 04/04/18 06:00 03/28/18 10:19 PT 12.5 SECONDS (9.4-12.5) 12/09/17 10:00 INR 1.09 (0.93-1.08) H 12/09/17 10:00 APTT 28.3 Seconds (25.1-36.5) 11/30/17 05:30 - Constitutional Appears: Chronically Ill - Head Exam Head Exam: NORMAL INSPECTION - Respiratory Exam Respiratory Exam: Decreased Breath Sounds - Cardiovascular Exam Cardiovascular Exam: +S1, +S2 - GI/Abdominal Exam GI & Abdominal Exam: Soft. absent: Tenderness Assessment and Plan - Assessment and Plan (Free Text) Plan: Assessment S/P sepsis due to strep viridans and CoNS bacteremia from right gluteal and back cellulitis S/P multifocal HCAP on top of Influenza A infection S/P Sammie infection of sacral area as well peripheral vascular disease Plan patient had completed 42 days of antibiotics on this admission - continue to monitor clinically off antibiotics since he is at risk for nosocomial infections
--- NOTE | 2018-04-09 18:15 | CP.PCM.PN ---
<Hardeep Jones - Last Filed: 04/09/18 18:12> Subjective - Date & Time of Evaluation Date of Evaluation: 04/09/18 Time of Evaluation: 08:30 - Subjective Subjective: Hardeep Jones DO PGY1 - IM Progress Note Patient seen and evaluated at bedside. No complaints at this time. Clinically same. Objective - Vital Signs/Intake and Output Vital Signs (last 24 hours): Temp Pulse Resp BP Pulse Ox 97.6 F 94 H 20 118/75 97 04/09/18 17:14 04/09/18 17:14 04/09/18 17:14 04/09/18 17:14 04/09/18 17:14 Intake and Output: 04/09/18 04/09/18 06:59 18:59 Intake Total 1080 700 Balance 1080 700 - Medications Medications: Current Medications Amlodipine Besylate (Norvasc) 10 mg PO DAILY [facility] Last Admin: 04/09/18 10:57 Dose: 10 mg Aspirin (Ecotrin) 81 mg PO DAILY [facility] Last Admin: 04/09/18 10:57 Dose: 81 mg Atorvastatin Calcium (Lipitor) 20 mg PO DIN [facility] Last Admin: 04/09/18 17:47 Dose: 20 mg Citalopram Hydrobromide (Celexa) 10 mg PO DAILY [facility] Last Admin: 04/09/18 10:56 Dose: 10 mg Docusate Sodium (Colace) 100 mg PO BID [facility] Last Admin: 04/09/18 17:47 Dose: 100 mg Folic Acid (Folic Acid) 1 mg PO DAILY [facility] Last Admin: 04/09/18 10:57 Dose: 1 mg Insulin Human Regular (Humulin R Low) 0 units SC ACHS [facility] PRN Reason: Protocol Last Admin: 04/09/18 17:41 Dose: 1 units Lisinopril (Zestril) 10 mg PO DAILY [facility] Last Admin: 04/09/18 10:56 Dose: 10 mg Metformin HCl (Glucophage) 500 mg PO BID [facility] Last Admin: 04/09/18 17:47 Dose: 500 mg Multivitamins/Minerals (Therapeutic-M Tab) 1 tab PO 0800 [facility] Last Admin: 04/09/18 10:57 Dose: 1 tab Ondansetron HCl (Zofran Odt) 4 mg PO Q8H PRN PRN Reason: Nausea/Vomiting Last Admin: 04/08/18 04:03 Dose: 4 mg Polyethylene Glycol (Miralax) 17 gm PO BID [facility] Last Admin: 04/09/18 17:47 Dose: 17 gm Thiamine HCl (Vitamin B1 Tab) 100 mg PO DAILY [facility] Last Admin: 04/09/18 10:57 Dose: 100 mg - Labs Labs: 04/04/18 06:00 03/28/18 10:19 PT 12.5 SECONDS (9.4-12.5) 12/09/17 10:00 INR 1.09 (0.93-1.08) H 12/09/17 10:00 APTT 28.3 Seconds (25.1-36.5) 11/30/17 05:30 - Additional Findings Additional findings: - Constitutional Appears: No Acute Distress - Head Exam Head Exam: ATRAUMATIC, NORMAL INSPECTION, NORMOCEPHALIC - Eye Exam Eye Exam: EOMI, PERRL - ENT Exam ENT Exam: Mucous Membranes Moist - Neck Exam Neck Exam: Full ROM - Respiratory Exam Respiratory Exam: Clear to Ausculation Bilateral, NORMAL BREATHING PATTERN - Cardiovascular Exam Cardiovascular Exam: REGULAR RHYTHM, +S1, +S2 - GI/Abdominal Exam GI & Abdominal Exam: Soft, Diminished Bowel Sounds, Normal Bowel Sounds. absent : Tenderness - Extremities Exam Extremities Exam: absent: Calf Tenderness, Pedal Edema - Neurological Exam Neurological Exam: Alert, Awake, Normal Gait, Oriented x3 Neuro motor strength exam: Left Upper Extremity: 5, Right Upper Extremity: 5, Left Lower Extremity: 5, Right Lower Extremity: 5 - Psychiatric Exam Psychiatric exam: Flat Affect - Skin Skin Exam: Dry, Warm Assessment and Plan - Assessment and Plan (Free Text) Assessment: 57yo male unknown PMHx admitted for AMS, right hip cellulitis, multifocal pneumonia, influenza A, strep viridians bacteremia with findings of stroke on MRI - acute vs. 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 Patient was treated for bacteremia with IV abx. Patient continues to refuse testing at this time. Guardianship establishment pending. Plan: Altered mental status - Currently at baseline mentation which waxes and wanes - Patient mentation clinically unchanged, able to answer simple questions - Delirium precautions; PT - patient refusing to participate - ASA/Lipitor Coag negative Staphylococcus bacteremia - Last bld clx negative 12/04/17 with completion of 6 week course of antibiotics - Monitor WBC, ESR, CRP weekly - Echocardiogram unable to rule out vegetations, family is unavailable for consent for TAHIR Stage 1 decubitus ulcer-improving - Patient refuses to get out of bed to chair - Refusing PT - Skin breakdown improving - Continue with Q2 turns, Wound care consulted - Folic acid, Thiamine, Zinc daily Colonic mass - CT Abd/Pelvis showing colonic mass and hepatic lesions - GI consulted: follow recs - Flex sig/colonoscopy refused by patient at this time - Family unable to be contacted for consent Diabetes mellitus type 2 in non-obese - Continue ISS low - Metformin 500mg BID - Monitor glucose - Carb consistent diet HTN - Lisinopril 10 daily - Stable, continue to monitor Affective disorder - Celexa 10mg PO Daily Constipation - Colace 100mg BID - Flat plat abdominal exam showing mild constipation Prophylaxis - Patient tolerating meals, no need for GI ppx - SCDs Dispo: Patient lacks decision making capacity and is unable to comprehend his diagnosis, medical treatment, potential benefit and risk associated with and without treatment. Guardianship paperwork being processed followed by potential placement. Court scheduled for 05/05/2018 concerning guardianship Case and plan discussed with attending <Arben Larry - Last Filed: 04/09/18 23:11> Objective - Vital Signs/Intake and Output Vital Signs (last 24 hours): Temp Pulse Resp BP Pulse Ox 97.6 F 94 H 20 118/75 97 04/09/18 17:14 04/09/18 17:14 04/09/18 17:14 04/09/18 17:14 04/09/18 17:14 Intake and Output: 04/09/18 04/10/18 18:59 06:59 Intake Total 700 600 Balance 700 600 - Medications Medications: Current Medications Amlodipine Besylate (Norvasc) 10 mg PO DAILY [facility] Last Admin: 04/09/18 10:57 Dose: 10 mg Aspirin (Ecotrin) 81 mg PO DAILY [facility] Last Admin: 04/09/18 10:57 Dose: 81 mg Atorvastatin Calcium (Lipitor) 20 mg PO DIN [facility] Last Admin: 04/09/18 17:47 Dose: 20 mg Citalopram Hydrobromide (Celexa) 10 mg PO DAILY [facility] Last Admin: 04/09/18 10:56 Dose: 10 mg Docusate Sodium (Colace) 100 mg PO BID [facility] Last Admin: 04/09/18 17:47 Dose: 100 mg Folic Acid (Folic Acid) 1 mg PO DAILY [facility] Last Admin: 04/09/18 10:57 Dose: 1 mg Insulin Human Regular (Humulin R Low) 0 units SC ACHS [facility] PRN Reason: Protocol Last Admin: 04/09/18 21:49 Dose: Not Given Lisinopril (Zestril) 10 mg PO DAILY [facility] Last Admin: 04/09/18 10:56 Dose: 10 mg Metformin HCl (Glucophage) 500 mg PO BID [facility] Last Admin: 04/09/18 17:47 Dose: 500 mg Multivitamins/Minerals (Therapeutic-M Tab) 1 tab PO 0800 [facility] Last Admin: 04/09/18 10:57 Dose: 1 tab Ondansetron HCl (Zofran Odt) 4 mg PO Q8H PRN PRN Reason: Nausea/Vomiting Last Admin: 04/08/18 04:03 Dose: 4 mg Polyethylene Glycol (Miralax) 17 gm PO BID [facility] Last Admin: 04/09/18 17:47 Dose: 17 gm Thiamine HCl (Vitamin B1 Tab) 100 mg PO DAILY [facility] Last Admin: 04/09/18 10:57 Dose: 100 mg - Labs Labs: 04/04/18 06:00 03/28/18 10:19 PT 12.5 SECONDS (9.4-12.5) 12/09/17 10:00 INR 1.09 (0.93-1.08) H 12/09/17 10:00 APTT 28.3 Seconds (25.1-36.5) 11/30/17 05:30 Attending/Attestation - Attestation I have personally seen and examined this patient.: Yes I have fully participated in the care of the patient.: Yes I have reviewed all pertinent clinical information, including history, physical exam and plan: Yes
[2018-04-10] MEDS: Insulin Reg-LOW-Coverage SC SCH ×4 (07:48→22:50)
[2018-04-10] MEDS: POLYETHYLENE GLYCOL 3350 17 GM/Dose PACKET PO SCH ×2 (10:59→18:25)
[2018-04-10] MEDS: Multivitamin With Minerals Tab PO SCH (11:01)
--- NOTE | 2018-04-10 13:50 | CP.PCM.PN ---
Subjective - Date & Time of Evaluation Date of Evaluation: 04/10/18 Time of Evaluation: 10:25 - Subjective Subjective: Afebrile, comfortably resting in bed. Objective - Vital Signs/Intake and Output Vital Signs (last 24 hours): Temp Pulse Resp BP Pulse Ox 97.6 F 86 20 133/90 99 04/10/18 06:00 04/10/18 06:00 04/10/18 06:00 04/10/18 06:00 04/10/18 06:00 Intake and Output: 04/10/18 04/10/18 06:59 18:59 Intake Total 720 Balance 720 - Medications Medications: Current Medications Amlodipine Besylate (Norvasc) 10 mg PO DAILY [facility] Last Admin: 04/09/18 10:57 Dose: 10 mg Aspirin (Ecotrin) 81 mg PO DAILY [facility] Last Admin: 04/09/18 10:57 Dose: 81 mg Atorvastatin Calcium (Lipitor) 20 mg PO DIN [facility] Last Admin: 04/09/18 17:47 Dose: 20 mg Citalopram Hydrobromide (Celexa) 10 mg PO DAILY [facility] Last Admin: 04/09/18 10:56 Dose: 10 mg Docusate Sodium (Colace) 100 mg PO BID [facility] Last Admin: 04/09/18 17:47 Dose: 100 mg Folic Acid (Folic Acid) 1 mg PO DAILY [facility] Last Admin: 04/09/18 10:57 Dose: 1 mg Insulin Human Regular (Humulin R Low) 0 units SC ACHS [facility] PRN Reason: Protocol Last Admin: 04/10/18 07:48 Dose: Not Given Lisinopril (Zestril) 10 mg PO DAILY [facility] Last Admin: 04/09/18 10:56 Dose: 10 mg Metformin HCl (Glucophage) 500 mg PO BID [facility] Last Admin: 04/09/18 17:47 Dose: 500 mg Multivitamins/Minerals (Therapeutic-M Tab) 1 tab PO 0800 [facility] Last Admin: 04/09/18 10:57 Dose: 1 tab Ondansetron HCl (Zofran Odt) 4 mg PO Q8H PRN PRN Reason: Nausea/Vomiting Last Admin: 04/08/18 04:03 Dose: 4 mg Polyethylene Glycol (Miralax) 17 gm PO BID [facility] Last Admin: 04/09/18 17:47 Dose: 17 gm Thiamine HCl (Vitamin B1 Tab) 100 mg PO DAILY [facility] Last Admin: 04/09/18 10:57 Dose: 100 mg - Labs Labs: 04/04/18 06:00 03/28/18 10:19 PT 12.5 SECONDS (9.4-12.5) 12/09/17 10:00 INR 1.09 (0.93-1.08) H 12/09/17 10:00 APTT 28.3 Seconds (25.1-36.5) 11/30/17 05:30 - Constitutional Appears: Chronically Ill - Head Exam Head Exam: NORMAL INSPECTION - Respiratory Exam Respiratory Exam: Decreased Breath Sounds - Cardiovascular Exam Cardiovascular Exam: +S1, +S2 - GI/Abdominal Exam GI & Abdominal Exam: Soft. absent: Tenderness Assessment and Plan - Assessment and Plan (Free Text) Plan: Assessment S/P sepsis due to strep viridans and CoNS bacteremia from right gluteal and back cellulitis S/P multifocal HCAP on top of Influenza A infection S/P Sammie infection of sacral area as well peripheral vascular disease Plan patient had completed 42 days of antibiotics on this admission - continue to monitor clinically off antibiotics since he is at risk for hospital-acquired infections
--- NOTE | 2018-04-10 16:29 | CP.PCM.PN ---
Subjective - Date & Time of Evaluation Date of Evaluation: 04/10/18 Time of Evaluation: 07:30 - Subjective Subjective: Patient seen and examined. No particular complaints. Clinically same. Objective - Vital Signs/Intake and Output Vital Signs (last 24 hours): Temp Pulse Resp BP Pulse Ox 97.6 F 88 18 101/63 98 04/10/18 16:22 04/10/18 16:22 04/10/18 16:22 04/10/18 16:22 04/10/18 16:22 Intake and Output: 04/10/18 04/10/18 06:59 18:59 Intake Total 720 660 Balance 720 660 - Medications Medications: Current Medications Amlodipine Besylate (Norvasc) 10 mg PO DAILY [facility] Last Admin: 04/10/18 10:59 Dose: 10 mg Aspirin (Ecotrin) 81 mg PO DAILY [facility] Last Admin: 04/10/18 10:58 Dose: 81 mg Atorvastatin Calcium (Lipitor) 20 mg PO DIN [facility] Last Admin: 04/09/18 17:47 Dose: 20 mg Citalopram Hydrobromide (Celexa) 10 mg PO DAILY [facility] Last Admin: 04/10/18 10:57 Dose: 10 mg Docusate Sodium (Colace) 100 mg PO BID [facility] Last Admin: 04/10/18 10:58 Dose: 100 mg Folic Acid (Folic Acid) 1 mg PO DAILY [facility] Last Admin: 04/10/18 10:58 Dose: 1 mg Insulin Human Regular (Humulin R Low) 0 units SC ACHS [facility] PRN Reason: Protocol Last Admin: 04/10/18 13:35 Dose: Not Given Lisinopril (Zestril) 10 mg PO DAILY [facility] Last Admin: 04/10/18 11:01 Dose: 10 mg Metformin HCl (Glucophage) 500 mg PO BID [facility] Last Admin: 04/10/18 10:58 Dose: 500 mg Multivitamins/Minerals (Therapeutic-M Tab) 1 tab PO 0800 [facility] Last Admin: 04/10/18 11:01 Dose: 1 tab Ondansetron HCl (Zofran Odt) 4 mg PO Q8H PRN PRN Reason: Nausea/Vomiting Last Admin: 04/08/18 04:03 Dose: 4 mg Polyethylene Glycol (Miralax) 17 gm PO BID [facility] Last Admin: 04/10/18 10:59 Dose: 17 gm Thiamine HCl (Vitamin B1 Tab) 100 mg PO DAILY [facility] Last Admin: 04/10/18 11:01 Dose: 100 mg - Labs Labs: 04/04/18 06:00 03/28/18 10:19 PT 12.5 SECONDS (9.4-12.5) 12/09/17 10:00 INR 1.09 (0.93-1.08) H 12/09/17 10:00 APTT 28.3 Seconds (25.1-36.5) 11/30/17 05:30 - Additional Findings Additional findings: - Constitutional Appears: No Acute Distress - Head Exam Head Exam: ATRAUMATIC, NORMAL INSPECTION, NORMOCEPHALIC - Eye Exam Eye Exam: EOMI, PERRL - ENT Exam ENT Exam: Mucous Membranes Moist - Neck Exam Neck Exam: Full ROM - Respiratory Exam Respiratory Exam: Clear to Ausculation Bilateral, NORMAL BREATHING PATTERN - Cardiovascular Exam Cardiovascular Exam: REGULAR RHYTHM, +S1, +S2 - GI/Abdominal Exam GI & Abdominal Exam: Soft, Diminished Bowel Sounds, Normal Bowel Sounds. absent : Tenderness - Extremities Exam Extremities Exam: absent: Calf Tenderness, Pedal Edema - Neurological Exam Neurological Exam: Alert, Awake, Normal Gait, Oriented x3 Neuro motor strength exam: Left Upper Extremity: 5, Right Upper Extremity: 5, Left Lower Extremity: 5, Right Lower Extremity: 5 - Psychiatric Exam Psychiatric exam: Flat Affect - Skin Skin Exam: Dry, Warm, back exam reveals no pressure wound, no ulceration, no skin breakdown, no erythema Assessment and Plan - Assessment and Plan (Free Text) Assessment: 57yo male unknown PMHx admitted for AMS, right hip cellulitis, multifocal pneumonia, influenza A, strep viridians bacteremia with findings of stroke on MRI - acute vs. 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 Patient was treated for bacteremia with IV abx. Patient continues to refuse testing at this time. Guardianship establishment pending. Plan: Altered mental status - Currently at baseline mentation which waxes and wanes - Patient mentation clinically unchanged, able to answer simple questions - Delirium precautions; PT - patient refusing to participate - ASA/Lipitor Coag negative Staphylococcus bacteremia - Last bld clx negative 12/04/17 with completion of 6 week course of antibiotics - Monitor WBC, ESR, CRP weekly - Echocardiogram unable to rule out vegetations, family is unavailable for consent for TAHIR Stage 1 decubitus ulcer-improving - Patient refuses to get out of bed to chair - Refusing PT - Skin breakdown improving - Continue with Q2 turns, Wound care consulted - Folic acid, Thiamine Colonic mass - CT Abd/Pelvis showing colonic mass and hepatic lesions - GI consulted: follow recs - Flex sig/colonoscopy refused by patient at this time - Family unable to be contacted for consent Diabetes mellitus type 2 in non-obese - Continue ISS low - Metformin 500mg BID - Monitor glucose - Carb consistent diet HTN - Lisinopril 10 daily - Stable, continue to monitor Affective disorder - Celexa 10mg PO Daily Constipation - Colace 100mg BID - Flat plat abdominal exam showing mild constipation Prophylaxis - Patient tolerating meals, no need for GI ppx - SCDs Dispo: Patient lacks decision making capacity and is unable to comprehend his diagnosis, medical treatment, potential benefit and risk associated with and without treatment. Guardianship paperwork being processed followed by potential placement. Court scheduled for 05/05/2018 concerning guardianship Case and plan discussed with attending
[2018-04-11 07:20] LABS: MEAN CELL VOLUME 81.5 fl (80.0-105.0); MEAN CORPUSCULAR HEMOGLOBIN 26.4 pg (25.0-35.0); MEAN CORPUSCULAR HGB CONC 32.4 g/dl (31.0-37.0); MEAN PLATELET VOLUME 9.2 fl (7.0-11.0); RBC 4.17 10^6/uL (3.5-6.1); RED CELL DISTRIBUTION WIDTH 14.1 % (11.5-14.5); WHITE BLOOD COUNT 11.1 10^3/ul (4.5-11.0)
[2018-04-11] MEDS: Insulin Reg-LOW-Coverage SC SCH ×4 (09:05→21:20)
[2018-04-11] MEDS: Multivitamin With Minerals Tab PO SCH (09:06)
[2018-04-11] MEDS: POLYETHYLENE GLYCOL 3350 17 GM/Dose PACKET PO SCH ×2 (09:06→17:07)
--- NOTE | 2018-04-11 15:09 | CP.PCM.PN ---
<Rocael Bowie - Last Filed: 04/11/18 15:08> Subjective - Date & Time of Evaluation Date of Evaluation: 04/11/18 Time of Evaluation: 09:00 - Subjective Subjective: Patient seen and evaluated. No changes clinically. Objective - Vital Signs/Intake and Output Vital Signs (last 24 hours): Temp Pulse Resp BP Pulse Ox 98.3 F 94 H 18 131/83 98 04/11/18 08:00 04/11/18 09:08 04/11/18 08:00 04/11/18 09:08 04/11/18 08:00 Intake and Output: 04/11/18 04/11/18 06:59 18:59 Intake Total 1200 Balance 1200 - Medications Medications: Current Medications Amlodipine Besylate (Norvasc) 10 mg PO DAILY [facility] Last Admin: 04/11/18 09:06 Dose: 10 mg Aspirin (Ecotrin) 81 mg PO DAILY [facility] Last Admin: 04/11/18 09:05 Dose: 81 mg Atorvastatin Calcium (Lipitor) 20 mg PO DIN [facility] Last Admin: 04/10/18 18:25 Dose: 20 mg Citalopram Hydrobromide (Celexa) 10 mg PO DAILY [facility] Last Admin: 04/11/18 09:04 Dose: 10 mg Docusate Sodium (Colace) 100 mg PO BID [facility] Last Admin: 04/11/18 09:04 Dose: 100 mg Folic Acid (Folic Acid) 1 mg PO DAILY [facility] Last Admin: 04/11/18 09:05 Dose: 1 mg Insulin Human Regular (Humulin R Low) 0 units SC ACHS [facility] PRN Reason: Protocol Last Admin: 04/11/18 13:13 Dose: Not Given Lisinopril (Zestril) 10 mg PO DAILY [facility] Last Admin: 04/11/18 09:08 Dose: 10 mg Metformin HCl (Glucophage) 500 mg PO BID [facility] Last Admin: 04/11/18 09:05 Dose: 500 mg Multivitamins/Minerals (Therapeutic-M Tab) 1 tab PO 0800 [facility] Last Admin: 04/11/18 09:06 Dose: 1 tab Ondansetron HCl (Zofran Odt) 4 mg PO Q8H PRN PRN Reason: Nausea/Vomiting Last Admin: 04/08/18 04:03 Dose: 4 mg Polyethylene Glycol (Miralax) 17 gm PO BID [facility] Last Admin: 04/11/18 09:06 Dose: 17 gm Thiamine HCl (Vitamin B1 Tab) 100 mg PO DAILY [facility] Last Admin: 04/11/18 09:08 Dose: 100 mg - Labs Labs: 04/11/18 07:01 03/28/18 10:19 PT 12.5 SECONDS (9.4-12.5) 12/09/17 10:00 INR 1.09 (0.93-1.08) H 12/09/17 10:00 APTT 28.3 Seconds (25.1-36.5) 11/30/17 05:30 - Constitutional Appears: No Acute Distress - Head Exam Head Exam: ATRAUMATIC, NORMAL INSPECTION, NORMOCEPHALIC - Eye Exam Eye Exam: EOMI, PERRL - ENT Exam ENT Exam: Mucous Membranes Moist - Neck Exam Neck Exam: Full ROM - Respiratory Exam Respiratory Exam: Clear to Ausculation Bilateral, NORMAL BREATHING PATTERN. absent: Rhonchi, Wheezes - Cardiovascular Exam Cardiovascular Exam: REGULAR RHYTHM, +S1, +S2 - GI/Abdominal Exam GI & Abdominal Exam: Soft, Normal Bowel Sounds. absent: Guarding, Rigid, Tenderness - Extremities Exam Extremities Exam: Normal Capillary Refill. absent: Pedal Edema, Tenderness - Neurological Exam Neurological Exam: Alert, Awake Additional comments: motor and sensory grossly intact - Psychiatric Exam Psychiatric exam: Flat Affect - Skin Skin Exam: Dry, Warm Assessment and Plan - Assessment and Plan (Free Text) Assessment: 57yo male unknown PMHx admitted for AMS, right hip cellulitis, multifocal pneumonia, influenza A, strep viridians bacteremia with findings of stroke on MRI - acute vs. 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 Patient was treated for bacteremia with IV abx. Patient continues to refuse testing at this time. Guardianship establishment pending. Plan: Altered mental status - Currently at baseline mentation which waxes and wanes - Patient mentation clinically unchanged, able to answer simple questions - Delirium precautions; PT - patient refusing to participate - ASA/Lipitor Coag negative Staphylococcus bacteremia - Last bld clx negative 12/04/17 with completion of 6 week course of antibiotics - Monitor WBC, ESR, CRP weekly - Echocardiogram unable to rule out vegetations, family is unavailable for consent for TAHIR Stage 1 decubitus ulcer-improving - Patient refuses to get out of bed to chair - Refusing PT - Skin breakdown improving - Continue with Q2 turns, Wound care consulted - Folic acid, Thiamine Colonic mass - CT Abd/Pelvis showing colonic mass and hepatic lesions - GI consulted: follow recs - Flex sig/colonoscopy refused by patient at this time - Family unable to be contacted for consent Diabetes mellitus type 2 in non-obese - Continue ISS low - Metformin 500mg BID - Monitor glucose - Carb consistent diet HTN - Lisinopril 10 daily - Stable, continue to monitor Affective disorder - Celexa 10mg PO Daily Constipation - Colace 100mg BID - Flat plat abdominal exam showing mild constipation Prophylaxis - Patient tolerating meals, no need for GI ppx - SCDs Dispo: Patient lacks decision making capacity and is unable to comprehend his diagnosis, medical treatment, potential benefit and risk associated with and without treatment. Guardianship paperwork being processed followed by potential placement. Court scheduled for 05/05/2018 concerning guardianship Case and plan discussed with attending <Deanna Schumacher - Last Filed: 04/15/18 12:09> Objective - Vital Signs/Intake and Output Vital Signs (last 24 hours): Temp Pulse Resp BP Pulse Ox 98.2 F 96 H 19 144/88 98 04/15/18 07:32 04/15/18 09:51 04/15/18 07:32 04/15/18 09:52 04/15/18 07:32 Intake and Output: 04/15/18 04/15/18 06:59 18:59 Intake Total 780 Balance 780 - Medications Medications: Current Medications Amlodipine Besylate (Norvasc) 10 mg PO DAILY [facility] Last Admin: 04/15/18 09:52 Dose: 10 mg Aspirin (Ecotrin) 81 mg PO DAILY [facility] Last Admin: 04/15/18 09:52 Dose: 81 mg Atorvastatin Calcium (Lipitor) 20 mg PO DIN [facility] Last Admin: 04/14/18 17:17 Dose: 20 mg Citalopram Hydrobromide (Celexa) 10 mg PO DAILY [facility] Last Admin: 04/15/18 09:52 Dose: 10 mg Docusate Sodium (Colace) 100 mg PO BID [facility] Last Admin: 04/15/18 09:52 Dose: 100 mg Folic Acid (Folic Acid) 1 mg PO DAILY [facility] Last Admin: 04/15/18 09:52 Dose: 1 mg Insulin Human Regular (Humulin R Low) 0 units SC [facility] PRN Reason: Protocol Last Admin: 04/15/18 08:17 Dose: Not Given Lisinopril (Zestril) 10 mg PO DAILY [facility] Last Admin: 04/15/18 09:51 Dose: 10 mg Metformin HCl (Glucophage) 500 mg PO BID [facility] Last Admin: 04/15/18 09:52 Dose: 500 mg Multivitamins/Minerals (Therapeutic-M Tab) 1 tab PO 0800 [facility] Last Admin: 04/15/18 09:52 Dose: 1 tab Ondansetron HCl (Zofran Odt) 4 mg PO Q8H PRN PRN Reason: Nausea/Vomiting Last Admin: 04/11/18 22:07 Dose: 4 mg Polyethylene Glycol (Miralax) 17 gm PO BID [facility] Last Admin: 04/15/18 09:53 Dose: 17 gm Thiamine HCl (Vitamin B1 Tab) 100 mg PO DAILY [facility] Last Admin: 04/15/18 09:52 Dose: 100 mg - Labs Labs: 04/11/18 07:01 03/28/18 10:19 PT 12.5 SECONDS (9.4-12.5) 12/09/17 10:00 INR 1.09 (0.93-1.08) H 12/09/17 10:00 APTT 28.3 Seconds (25.1-36.5) 11/30/17 05:30 Attending/Attestation - Attestation I have personally seen and examined this patient.: Yes I have fully participated in the care of the patient.: Yes I have reviewed all pertinent clinical information, including history, physical exam and plan: Yes Notes (Text): 04/15/18 12:09 Medical record note made by the resident after discussion with my direction and input after the patient was personally seen and examined by me. I have reviewed the chart and agree that the record accurately reflects by personal performance of the history, physical exam, data review, and medical decision-making, in the course for the patient. I have also personally directed the plan of care.
--- NOTE | 2018-04-11 17:11 | CP.PCM.PN ---
Subjective - Date & Time of Evaluation Date of Evaluation: 04/11/18 Time of Evaluation: 10:15 - Subjective Subjective: No fevers, comfortable in bed. Objective - Vital Signs/Intake and Output Vital Signs (last 24 hours): Temp Pulse Resp BP Pulse Ox 97.6 F 88 18 101/63 98 04/10/18 16:22 04/10/18 16:22 04/10/18 16:22 04/10/18 16:22 04/10/18 16:22 Intake and Output: 04/11/18 04/11/18 06:59 18:59 Intake Total 1200 Balance 1200 - Medications Medications: Current Medications Amlodipine Besylate (Norvasc) 10 mg PO DAILY [facility] Last Admin: 04/10/18 10:59 Dose: 10 mg Aspirin (Ecotrin) 81 mg PO DAILY [facility] Last Admin: 04/10/18 10:58 Dose: 81 mg Atorvastatin Calcium (Lipitor) 20 mg PO DIN [facility] Last Admin: 04/10/18 18:25 Dose: 20 mg Citalopram Hydrobromide (Celexa) 10 mg PO DAILY [facility] Last Admin: 04/10/18 10:57 Dose: 10 mg Docusate Sodium (Colace) 100 mg PO BID [facility] Last Admin: 04/10/18 18:25 Dose: 100 mg Folic Acid (Folic Acid) 1 mg PO DAILY [facility] Last Admin: 04/10/18 10:58 Dose: 1 mg Insulin Human Regular (Humulin R Low) 0 units SC ACHS [facility] PRN Reason: Protocol Last Admin: 04/10/18 22:50 Dose: Not Given Lisinopril (Zestril) 10 mg PO DAILY [facility] Last Admin: 04/10/18 11:01 Dose: 10 mg Metformin HCl (Glucophage) 500 mg PO BID [facility] Last Admin: 04/10/18 18:25 Dose: 500 mg Multivitamins/Minerals (Therapeutic-M Tab) 1 tab PO 0800 [facility] Last Admin: 04/10/18 11:01 Dose: 1 tab Ondansetron HCl (Zofran Odt) 4 mg PO Q8H PRN PRN Reason: Nausea/Vomiting Last Admin: 04/08/18 04:03 Dose: 4 mg Polyethylene Glycol (Miralax) 17 gm PO BID [facility] Last Admin: 04/10/18 18:25 Dose: 17 gm Thiamine HCl (Vitamin B1 Tab) 100 mg PO DAILY [facility] Last Admin: 04/10/18 11:01 Dose: 100 mg - Labs Labs: 04/11/18 07:01 03/28/18 10:19 PT 12.5 SECONDS (9.4-12.5) 12/09/17 10:00 INR 1.09 (0.93-1.08) H 12/09/17 10:00 APTT 28.3 Seconds (25.1-36.5) 11/30/17 05:30 - Constitutional Appears: Non-toxic, Chronically Ill - Head Exam Head Exam: NORMAL INSPECTION - Respiratory Exam Respiratory Exam: Decreased Breath Sounds - Cardiovascular Exam Cardiovascular Exam: +S1, +S2 - GI/Abdominal Exam GI & Abdominal Exam: Soft. absent: Tenderness Assessment and Plan - Assessment and Plan (Free Text) Plan: Assessment S/P sepsis due to strep viridans and CoNS bacteremia from right gluteal and back cellulitis S/P multifocal HCAP on top of Influenza A infection S/P Sammie infection of sacral area as well peripheral vascular disease Plan patient had completed 42 days of antibiotics on this admission - continue to monitor clinically off antibiotics since he is at risk for healthcare- associated infections awaiting guardianship
--- NOTE | 2018-04-12 08:00 | CP.PCM.PN ---
<Abriljean-paulOscar barakatn - Last Filed: 04/12/18 14:52> Subjective - Date & Time of Evaluation Date of Evaluation: 04/12/18 Time of Evaluation: 07:59 - Subjective Subjective: Medicine Progress note Patient seen and examined at bedside. Clinically same. no acute complaints. Tolerating diet. having regular BM. Objective - Vital Signs/Intake and Output Vital Signs (last 24 hours): Temp Pulse Resp BP Pulse Ox 97.2 F L 97 H 20 135/87 97 04/12/18 07:38 04/12/18 07:38 04/12/18 07:38 04/12/18 07:38 04/12/18 07:38 Intake and Output: 04/12/18 04/12/18 06:59 18:59 Intake Total 840 Output Total 1 Balance 839 - Medications Medications: Current Medications Amlodipine Besylate (Norvasc) 10 mg PO DAILY [facility] Last Admin: 04/11/18 09:06 Dose: 10 mg Aspirin (Ecotrin) 81 mg PO DAILY [facility] Last Admin: 04/11/18 09:05 Dose: 81 mg Atorvastatin Calcium (Lipitor) 20 mg PO DIN [facility] Last Admin: 04/11/18 17:07 Dose: 20 mg Citalopram Hydrobromide (Celexa) 10 mg PO DAILY [facility] Last Admin: 04/11/18 09:04 Dose: 10 mg Docusate Sodium (Colace) 100 mg PO BID [facility] Last Admin: 04/11/18 17:06 Dose: 100 mg Folic Acid (Folic Acid) 1 mg PO DAILY [facility] Last Admin: 04/11/18 09:05 Dose: 1 mg Insulin Human Regular (Humulin R Low) 0 units SC [facility] PRN Reason: Protocol Last Admin: 04/11/18 21:20 Dose: Not Given Lisinopril (Zestril) 10 mg PO DAILY [facility] Last Admin: 04/11/18 09:08 Dose: 10 mg Metformin HCl (Glucophage) 500 mg PO BID [facility] Last Admin: 04/11/18 17:07 Dose: 500 mg Multivitamins/Minerals (Therapeutic-M Tab) 1 tab PO 0800 [facility] Last Admin: 04/11/18 09:06 Dose: 1 tab Ondansetron HCl (Zofran Odt) 4 mg PO Q8H PRN PRN Reason: Nausea/Vomiting Last Admin: 04/11/18 22:07 Dose: 4 mg Polyethylene Glycol (Miralax) 17 gm PO BID [facility] Last Admin: 04/11/18 17:07 Dose: 17 gm Thiamine HCl (Vitamin B1 Tab) 100 mg PO DAILY [facility] Last Admin: 04/11/18 09:08 Dose: 100 mg - Labs Labs: 04/11/18 07:01 03/28/18 10:19 PT 12.5 SECONDS (9.4-12.5) 12/09/17 10:00 INR 1.09 (0.93-1.08) H 12/09/17 10:00 APTT 28.3 Seconds (25.1-36.5) 11/30/17 05:30 - Constitutional Appears: Non-toxic, No Acute Distress, Chronically Ill - Head Exam Head Exam: ATRAUMATIC - Eye Exam Eye Exam: EOMI - ENT Exam ENT Exam: Mucous Membranes Moist - Respiratory Exam Respiratory Exam: NORMAL BREATHING PATTERN. absent: Accessory Muscle Use, Respiratory Distress - Cardiovascular Exam Cardiovascular Exam: +S1, +S2. absent: Bradycardia, Tachycardia - GI/Abdominal Exam GI & Abdominal Exam: Soft. absent: Distended, Firm, Guarding, Rigid, Tenderness - Extremities Exam Extremities Exam: Normal Inspection. absent: Calf Tenderness - Neurological Exam Neurological Exam: Awake - Psychiatric Exam Psychiatric exam: Normal Affect - Skin Skin Exam: Intact, Warm Assessment and Plan - Assessment and Plan (Free Text) Assessment: 57yo male unknown PMHx admitted for AMS, right hip cellulitis, multifocal pneumonia, influenza A, strep viridians bacteremia with findings of stroke on MRI - acute vs. 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 Patient was treated for bacteremia with IV abx. Patient continues to refuse testing at this time. Guardianship establishment pending. Plan: Altered mental status - Currently at baseline mentation which waxes and wanes - Patient mentation clinically unchanged, able to answer simple questions - Delirium precautions; PT - patient refusing to participate - ASA/Lipitor Coag negative Staphylococcus bacteremia - Last bld clx negative 12/04/17 with completion of 6 week course of antibiotics - Monitor WBC, ESR, CRP weekly - Echocardiogram unable to rule out vegetations, family is unavailable for consent for TAHIR Stage 1 decubitus ulcer-improving - Patient refuses to get out of bed to chair - Refusing PT - Skin breakdown improving - Continue with Q2 turns, Wound care consulted - Folic acid, Thiamine Colonic mass - CT Abd/Pelvis showing colonic mass and hepatic lesions - GI consulted: follow recs - Flex sig/colonoscopy refused by patient at this time - Family unable to be contacted for consent Diabetes mellitus type 2 in non-obese - Continue ISS low - Metformin 500mg BID - Monitor glucose - Carb consistent diet HTN - Lisinopril 10 daily - Stable, continue to monitor Affective disorder - Celexa 10mg PO Daily Constipation - Colace 100mg BID - Flat plat abdominal exam showing mild constipation - BM overnight Prophylaxis - Patient tolerating meals, no need for GI ppx - SCDs Dispo: Patient lacks decision making capacity and is unable to comprehend his diagnosis, medical treatment, potential benefit and risk associated with and without treatment. Guardianship paperwork being processed followed by potential placement. Court scheduled for 05/05/2018 concerning guardianship Case and plan discussed with attending <Deanna Schumacher - Last Filed: 04/15/18 12:10> Objective - Vital Signs/Intake and Output Vital Signs (last 24 hours): Temp Pulse Resp BP Pulse Ox 98.2 F 96 H 19 144/88 98 04/15/18 07:32 04/15/18 09:51 04/15/18 07:32 04/15/18 09:52 04/15/18 07:32 Intake and Output: 04/15/18 04/15/18 06:59 18:59 Intake Total 780 Balance 780 - Medications Medications: Current Medications Amlodipine Besylate (Norvasc) 10 mg PO DAILY [facility] Last Admin: 04/15/18 09:52 Dose: 10 mg Aspirin (Ecotrin) 81 mg PO DAILY [facility] Last Admin: 04/15/18 09:52 Dose: 81 mg Atorvastatin Calcium (Lipitor) 20 mg PO DIN [facility] Last Admin: 04/14/18 17:17 Dose: 20 mg Citalopram Hydrobromide (Celexa) 10 mg PO DAILY [facility] Last Admin: 04/15/18 09:52 Dose: 10 mg Docusate Sodium (Colace) 100 mg PO BID [facility] Last Admin: 04/15/18 09:52 Dose: 100 mg Folic Acid (Folic Acid) 1 mg PO DAILY [facility] Last Admin: 04/15/18 09:52 Dose: 1 mg Insulin Human Regular (Humulin R Low) 0 units SC [facility] PRN Reason: Protocol Last Admin: 04/15/18 08:17 Dose: Not Given Lisinopril (Zestril) 10 mg PO DAILY [facility] Last Admin: 04/15/18 09:51 Dose: 10 mg Metformin HCl (Glucophage) 500 mg PO BID [facility] Last Admin: 04/15/18 09:52 Dose: 500 mg Multivitamins/Minerals (Therapeutic-M Tab) 1 tab PO 0800 [facility] Last Admin: 04/15/18 09:52 Dose: 1 tab Ondansetron HCl (Zofran Odt) 4 mg PO Q8H PRN PRN Reason: Nausea/Vomiting Last Admin: 04/11/18 22:07 Dose: 4 mg Polyethylene Glycol (Miralax) 17 gm PO BID [facility] Last Admin: 04/15/18 09:53 Dose: 17 gm Thiamine HCl (Vitamin B1 Tab) 100 mg PO DAILY [facility] Last Admin: 04/15/18 09:52 Dose: 100 mg - Labs Labs: 04/11/18 07:01 03/28/18 10:19 PT 12.5 SECONDS (9.4-12.5) 12/09/17 10:00 INR 1.09 (0.93-1.08) H 12/09/17 10:00 APTT 28.3 Seconds (25.1-36.5) 11/30/17 05:30 Attending/Attestation - Attestation I have personally seen and examined this patient.: Yes I have fully participated in the care of the patient.: Yes I have reviewed all pertinent clinical information, including history, physical exam and plan: Yes Notes (Text): 04/15/18 12:10 Medical record note made by the resident after discussion with my direction and input after the patient was personally seen and examined by me. I have reviewed the chart and agree that the record accurately reflects by personal performance of the history, physical exam, data review, and medical decision-making, in the course for the patient. I have also personally directed the plan of care.
[2018-04-12] MEDS: POLYETHYLENE GLYCOL 3350 17 GM/Dose PACKET PO SCH ×2 (09:04→17:02)
[2018-04-12] MEDS: Insulin Reg-LOW-Coverage SC SCH ×4 (09:04→21:38)
[2018-04-12] MEDS: Multivitamin With Minerals Tab PO SCH (09:05)
--- NOTE | 2018-04-12 23:05 | PN ---
DATE: 04/12/2018 SUBJECTIVE: Patient is in bed, in no acute distress, seen earlier this morning in 367, bed 1. PHYSICAL EXAMINATION: VITAL SIGNS: Temperature 97, blood pressure 130/80, respiratory rate of 20, heart rate of 82. HEENT: Unremarkable. NECK: Supple. LUNGS: Decreased breath sounds. HEART: Normal S1, S2. ABDOMEN: Soft. LABORATORY DATA: Reveals a white count of 11,100, hemoglobin of 11. Laboratory exam reviewed. ASSESSMENT AND PLAN: This is a 57-year-old male, status post sepsis due to Streptococcus viridans and coag-negative staph bacteremia, right gluteal and back cellulitis, multifocal healthcare-associated pneumonia, has completed 42 days of antibiotics, currently off of antibiotics, afebrile. Patient is at risk for developing nosocomial infections. Daniel Torres MD
[2018-04-13] MEDS: Insulin Reg-LOW-Coverage SC SCH ×3 (07:30→21:30)
[2018-04-13] MEDS: Multivitamin With Minerals Tab PO SCH (09:00)
[2018-04-13] MEDS: POLYETHYLENE GLYCOL 3350 17 GM/Dose PACKET PO SCH ×2 (09:48→18:12)
--- NOTE | 2018-04-13 11:12 | CP.PCM.PN ---
<Jorge Luis Lopez - Last Filed: 04/13/18 11:03> Subjective - Date & Time of Evaluation Date of Evaluation: 04/13/18 Time of Evaluation: 06:30 - Subjective Subjective: Patient seen and examined at bedside in no acute distress with no complains overnight. Denies shortness of breath, chest pain, palpitations, abdominal pain , nausea, vomiting, diarrhea, fevers, chills, headache, cough. Objective - Vital Signs/Intake and Output Vital Signs (last 24 hours): Temp Pulse Resp BP Pulse Ox 98 F 87 20 133/81 97 04/12/18 18:00 04/13/18 09:47 04/12/18 18:00 04/13/18 09:47 04/12/18 18:00 Intake and Output: 04/13/18 04/13/18 06:59 18:59 Intake Total 660 0 Balance 660 0 - Medications Medications: Current Medications Amlodipine Besylate (Norvasc) 10 mg PO DAILY [facility] Last Admin: 04/13/18 09:47 Dose: 10 mg Aspirin (Ecotrin) 81 mg PO DAILY [facility] Last Admin: 04/13/18 09:44 Dose: 81 mg Atorvastatin Calcium (Lipitor) 20 mg PO DIN [facility] Last Admin: 04/12/18 17:02 Dose: 20 mg Citalopram Hydrobromide (Celexa) 10 mg PO DAILY [facility] Last Admin: 04/13/18 09:46 Dose: 10 mg Docusate Sodium (Colace) 100 mg PO BID [facility] Last Admin: 04/13/18 09:45 Dose: 100 mg Folic Acid (Folic Acid) 1 mg PO DAILY [facility] Last Admin: 04/13/18 09:46 Dose: 1 mg Insulin Human Regular (Humulin R Low) 0 units SC [facility] PRN Reason: Protocol Last Admin: 04/13/18 07:30 Dose: Not Given Lisinopril (Zestril) 10 mg PO DAILY [facility] Last Admin: 04/13/18 09:47 Dose: 10 mg Metformin HCl (Glucophage) 500 mg PO BID [facility] Last Admin: 04/13/18 09:44 Dose: 500 mg Multivitamins/Minerals (Therapeutic-M Tab) 1 tab PO 0800 [facility] Last Admin: 04/13/18 09:00 Dose: 1 tab Ondansetron HCl (Zofran Odt) 4 mg PO Q8H PRN PRN Reason: Nausea/Vomiting Last Admin: 04/11/18 22:07 Dose: 4 mg Polyethylene Glycol (Miralax) 17 gm PO BID [facility] Last Admin: 04/13/18 09:48 Dose: Not Given Thiamine HCl (Vitamin B1 Tab) 100 mg PO DAILY [facility] Last Admin: 04/13/18 09:46 Dose: 100 mg - Labs Labs: 04/11/18 07:01 03/28/18 10:19 PT 12.5 SECONDS (9.4-12.5) 12/09/17 10:00 INR 1.09 (0.93-1.08) H 12/09/17 10:00 APTT 28.3 Seconds (25.1-36.5) 11/30/17 05:30 - Head Exam Head Exam: ATRAUMATIC, NORMAL INSPECTION, NORMOCEPHALIC - Eye Exam Eye Exam: EOMI, Normal appearance - ENT Exam ENT Exam: Mucous Membranes Moist - Respiratory Exam Respiratory Exam: Clear to Ausculation Bilateral, NORMAL BREATHING PATTERN. absent: Rhonchi, Wheezes - Cardiovascular Exam Cardiovascular Exam: REGULAR RHYTHM, +S1, +S2 - GI/Abdominal Exam GI & Abdominal Exam: Soft, Normal Bowel Sounds - Extremities Exam Extremities Exam: Normal Inspection - Back Exam Back Exam: NORMAL INSPECTION - Neurological Exam Neurological Exam: Alert, Awake, Oriented x3 - Psychiatric Exam Psychiatric exam: Normal Affect, Normal Mood - Skin Skin Exam: Normal Color, Warm Assessment and Plan - Assessment and Plan (Free Text) Assessment: 57yo male unknown PMHx admitted for AMS, right hip cellulitis, multifocal pneumonia, influenza A, strep viridians bacteremia with findings of stroke on MRI - acute vs. 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 Patient was treated for bacteremia with IV abx. Patient continues to refuse testing at this time. Guardianship establishment pending. Plan: Altered mental status - Currently at baseline mentation which waxes and wanes - Patient mentation clinically unchanged, able to answer simple questions - Delirium precautions; PT - patient refusing to participate - ASA/Lipitor Leukocytosis -Afebrile -Low end of high -Continue to monitor Coag negative Staphylococcus bacteremia - Last bld clx negative 12/04/17 with completion of 6 week course of antibiotics - Monitor WBC, ESR, CRP weekly - Echocardiogram unable to rule out vegetations, family is unavailable for consent for TAHIR Stage 1 decubitus ulcer-improving - Patient refuses to get out of bed to chair - Refusing PT - Skin breakdown improving - Continue with Q2 turns, Wound care consulted - Folic acid, Thiamine Colonic mass - CT Abd/Pelvis showing colonic mass and hepatic lesions - GI consulted: follow recs - Flex sig/colonoscopy refused by patient at this time - Family unable to be contacted for consent Diabetes mellitus type 2 in non-obese - Continue ISS low - Metformin 500mg BID - Monitor glucose - Carb consistent diet HTN - Lisinopril 10 daily - Stable, continue to monitor Affective disorder - Celexa 10mg PO Daily Constipation - Colace 100mg BID - Continues to have BMs Prophylaxis - Patient tolerating meals, no need for GI ppx - SCDs Dispo: Patient lacks decision making capacity and is unable to comprehend his diagnosis, medical treatment, potential benefit and risk associated with and without treatment. Guardianship paperwork being processed followed by potential placement. Court scheduled for 05/05/2018 concerning guardianship Case and plan discussed with attending <Sixto Galo - Last Filed: 04/13/18 11:27> Objective - Vital Signs/Intake and Output Vital Signs (last 24 hours): Temp Pulse Resp BP Pulse Ox 98 F 87 20 133/81 97 04/12/18 18:00 04/13/18 09:47 04/12/18 18:00 04/13/18 09:47 04/12/18 18:00 Intake and Output: 04/13/18 04/13/18 06:59 18:59 Intake Total 660 0 Balance 660 0 - Medications Medications: Current Medications Amlodipine Besylate (Norvasc) 10 mg PO DAILY [facility] Last Admin: 04/13/18 09:47 Dose: 10 mg Aspirin (Ecotrin) 81 mg PO DAILY [facility] Last Admin: 04/13/18 09:44 Dose: 81 mg Atorvastatin Calcium (Lipitor) 20 mg PO DIN [facility] Last Admin: 04/12/18 17:02 Dose: 20 mg Citalopram Hydrobromide (Celexa) 10 mg PO DAILY [facility] Last Admin: 04/13/18 09:46 Dose: 10 mg Docusate Sodium (Colace) 100 mg PO BID [facility] Last Admin: 04/13/18 09:45 Dose: 100 mg Folic Acid (Folic Acid) 1 mg PO DAILY [facility] Last Admin: 04/13/18 09:46 Dose: 1 mg Insulin Human Regular (Humulin R Low) 0 units SC [facility] PRN Reason: Protocol Last Admin: 04/13/18 07:30 Dose: Not Given Lisinopril (Zestril) 10 mg PO DAILY [facility] Last Admin: 04/13/18 09:47 Dose: 10 mg Metformin HCl (Glucophage) 500 mg PO BID [facility] Last Admin: 04/13/18 09:44 Dose: 500 mg Multivitamins/Minerals (Therapeutic-M Tab) 1 tab PO 0800 [facility] Last Admin: 04/13/18 09:00 Dose: 1 tab Ondansetron HCl (Zofran Odt) 4 mg PO Q8H PRN PRN Reason: Nausea/Vomiting Last Admin: 04/11/18 22:07 Dose: 4 mg Polyethylene Glycol (Miralax) 17 gm PO BID [facility] Last Admin: 04/13/18 09:48 Dose: Not Given Thiamine HCl (Vitamin B1 Tab) 100 mg PO DAILY [facility] Last Admin: 04/13/18 09:46 Dose: 100 mg - Labs Labs: 04/11/18 07:01 03/28/18 10:19 PT 12.5 SECONDS (9.4-12.5) 12/09/17 10:00 INR 1.09 (0.93-1.08) H 12/09/17 10:00 APTT 28.3 Seconds (25.1-36.5) 11/30/17 05:30 Attending/Attestation - Attestation I have personally seen and examined this patient.: Yes I have fully participated in the care of the patient.: Yes I have reviewed all pertinent clinical information, including history, physical exam and plan: Yes
--- NOTE | 2018-04-14 07:13 | CP.PCM.PN ---
<Rocael Bowie - Last Filed: 04/14/18 11:46> Subjective - Date & Time of Evaluation Date of Evaluation: 04/14/18 Time of Evaluation: 07:05 - Subjective Subjective: Patient seen and evaluated this AM. No acute events reported overnight. Patient clinically unchanged. Objective - Vital Signs/Intake and Output Vital Signs (last 24 hours): Temp Pulse Resp BP Pulse Ox 97.9 F 92 H 19 113/80 97 04/13/18 18:00 04/13/18 18:00 04/13/18 18:00 04/13/18 18:00 04/13/18 18:00 Intake and Output: 04/14/18 04/14/18 06:59 18:59 Intake Total 760 Balance 760 - Medications Medications: Current Medications Amlodipine Besylate (Norvasc) 10 mg PO DAILY [facility] Last Admin: 04/13/18 09:47 Dose: 10 mg Aspirin (Ecotrin) 81 mg PO DAILY [facility] Last Admin: 04/13/18 09:44 Dose: 81 mg Atorvastatin Calcium (Lipitor) 20 mg PO DIN [facility] Last Admin: 04/13/18 18:11 Dose: 20 mg Citalopram Hydrobromide (Celexa) 10 mg PO DAILY [facility] Last Admin: 04/13/18 09:46 Dose: 10 mg Docusate Sodium (Colace) 100 mg PO BID [facility] Last Admin: 04/13/18 18:12 Dose: Not Given Folic Acid (Folic Acid) 1 mg PO DAILY [facility] Last Admin: 04/13/18 09:46 Dose: 1 mg Insulin Human Regular (Humulin R Low) 0 units SC A[facility]S [facility] PRN Reason: Protocol Last Admin: 04/13/18 21:30 Dose: Not Given Lisinopril (Zestril) 10 mg PO DAILY [facility] Last Admin: 04/13/18 09:47 Dose: 10 mg Metformin HCl (Glucophage) 500 mg PO BID [facility] Last Admin: 04/13/18 18:11 Dose: 500 mg Multivitamins/Minerals (Therapeutic-M Tab) 1 tab PO 0800 [facility] Last Admin: 04/13/18 09:00 Dose: 1 tab Ondansetron HCl (Zofran Odt) 4 mg PO Q8H PRN PRN Reason: Nausea/Vomiting Last Admin: 04/11/18 22:07 Dose: 4 mg Polyethylene Glycol (Miralax) 17 gm PO BID [facility] Last Admin: 04/13/18 18:12 Dose: Not Given Thiamine HCl (Vitamin B1 Tab) 100 mg PO DAILY [facility] Last Admin: 04/13/18 09:46 Dose: 100 mg - Labs Labs: 04/11/18 07:01 03/28/18 10:19 PT 12.5 SECONDS (9.4-12.5) 12/09/17 10:00 INR 1.09 (0.93-1.08) H 12/09/17 10:00 APTT 28.3 Seconds (25.1-36.5) 11/30/17 05:30 - Constitutional Appears: No Acute Distress - Head Exam Head Exam: ATRAUMATIC, NORMAL INSPECTION, NORMOCEPHALIC - Eye Exam Eye Exam: EOMI, PERRL - Neck Exam Neck Exam: Full ROM - Respiratory Exam Respiratory Exam: Clear to Ausculation Bilateral, NORMAL BREATHING PATTERN - Cardiovascular Exam Cardiovascular Exam: REGULAR RHYTHM, +S1, +S2 - GI/Abdominal Exam GI & Abdominal Exam: Soft, Normal Bowel Sounds. absent: Tenderness - Extremities Exam Extremities Exam: absent: Calf Tenderness, Tenderness - Neurological Exam Neurological Exam: Alert, Awake - Psychiatric Exam Psychiatric exam: Flat Affect - Skin Skin Exam: Dry, Intact Assessment and Plan - Assessment and Plan (Free Text) Assessment: 57yo male unknown PMHx admitted for AMS, right hip cellulitis, multifocal pneumonia, influenza A, strep viridians bacteremia with findings of stroke on MRI - acute vs. 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 Patient was treated for bacteremia with IV abx. Patient continues to refuse testing at this time. Guardianship establishment pending. Plan: Altered mental status - Currently at baseline mentation which waxes and wanes - Patient mentation clinically unchanged, able to answer simple questions - Delirium precautions; PT - patient refusing to participate - ASA/Lipitor Coag negative Staphylococcus bacteremia - Last bld clx negative 12/04/17 with completion of 6 week course of antibiotics - Monitor WBC, ESR, CRP weekly - Echocardiogram unable to rule out vegetations, family is unavailable for consent for TAHIR Stage 1 decubitus ulcer-improving - Patient refuses to get out of bed to chair - Refusing PT - Skin breakdown improving - Continue with Q2 turns, Wound care consulted - Folic acid, Thiamine Colonic mass - CT Abd/Pelvis showing colonic mass and hepatic lesions - GI consulted: follow recs - Flex sig/colonoscopy refused by patient at this time - Family unable to be contacted for consent Diabetes mellitus type 2 in non-obese - Continue ISS low - Metformin 500mg BID - Monitor glucose - Carb consistent diet HTN - Lisinopril 10 daily - Stable, continue to monitor Affective disorder - Celexa 10mg PO Daily Constipation - Colace 100mg BID - Continues to have BMs Prophylaxis - Patient tolerating meals, no need for GI ppx - SCDs Dispo: Patient lacks decision making capacity and is unable to comprehend his diagnosis, medical treatment, potential benefit and risk associated with and without treatment. Guardianship paperwork being processed followed by potential placement. Court scheduled for 05/05/2018 concerning guardianship Case and plan discussed with attending <Deanna Schumacher - Last Filed: 04/15/18 12:14> Objective - Vital Signs/Intake and Output Vital Signs (last 24 hours): Temp Pulse Resp BP Pulse Ox 98.2 F 96 H 19 144/88 98 04/15/18 07:32 04/15/18 09:51 04/15/18 07:32 04/15/18 09:52 04/15/18 07:32 Intake and Output: 04/15/18 04/15/18 06:59 18:59 Intake Total 780 Balance 780 - Medications Medications: Current Medications Amlodipine Besylate (Norvasc) 10 mg PO DAILY [facility] Last Admin: 04/15/18 09:52 Dose: 10 mg Aspirin (Ecotrin) 81 mg PO DAILY [facility] Last Admin: 04/15/18 09:52 Dose: 81 mg Atorvastatin Calcium (Lipitor) 20 mg PO DIN [facility] Last Admin: 04/14/18 17:17 Dose: 20 mg Citalopram Hydrobromide (Celexa) 10 mg PO DAILY [facility] Last Admin: 04/15/18 09:52 Dose: 10 mg Docusate Sodium (Colace) 100 mg PO BID [facility] Last Admin: 04/15/18 09:52 Dose: 100 mg Folic Acid (Folic Acid) 1 mg PO DAILY [facility] Last Admin: 04/15/18 09:52 Dose: 1 mg Insulin Human Regular (Humulin R Low) 0 units SC [facility] PRN Reason: Protocol Last Admin: 04/15/18 08:17 Dose: Not Given Lisinopril (Zestril) 10 mg PO DAILY [facility] Last Admin: 04/15/18 09:51 Dose: 10 mg Metformin HCl (Glucophage) 500 mg PO BID [facility] Last Admin: 04/15/18 09:52 Dose: 500 mg Multivitamins/Minerals (Therapeutic-M Tab) 1 tab PO 0800 [facility] Last Admin: 04/15/18 09:52 Dose: 1 tab Ondansetron HCl (Zofran Odt) 4 mg PO Q8H PRN PRN Reason: Nausea/Vomiting Last Admin: 04/11/18 22:07 Dose: 4 mg Polyethylene Glycol (Miralax) 17 gm PO BID [facility] Last Admin: 04/15/18 09:53 Dose: 17 gm Thiamine HCl (Vitamin B1 Tab) 100 mg PO DAILY [facility] Last Admin: 04/15/18 09:52 Dose: 100 mg - Labs Labs: 04/11/18 07:01 03/28/18 10:19 PT 12.5 SECONDS (9.4-12.5) 12/09/17 10:00 INR 1.09 (0.93-1.08) H 12/09/17 10:00 APTT 28.3 Seconds (25.1-36.5) 11/30/17 05:30 Attending/Attestation - Attestation I have personally seen and examined this patient.: Yes I have fully participated in the care of the patient.: Yes I have reviewed all pertinent clinical information, including history, physical exam and plan: Yes Notes (Text): 04/15/18 12:11 Medical record note made by the resident after discussion with my direction and input after the patient was personally seen and examined by me. I have reviewed the chart and agree that the record accurately reflects by personal performance of the history, physical exam, data review, and medical decision-making, in the course for the patient. I have also personally directed the plan of care. Patient is stable at his base line.There is no active medical issue at this time.Patient is awaiting for guardianship paper work for placement.
[2018-04-14] MEDS: POLYETHYLENE GLYCOL 3350 17 GM/Dose PACKET PO SCH ×2 (09:18→17:18)
[2018-04-14] MEDS: Insulin Reg-LOW-Coverage SC SCH ×4 (09:18→23:42)
[2018-04-14] MEDS: Multivitamin With Minerals Tab PO SCH (09:19)
--- NOTE | 2018-04-14 11:07 | PN ---
DATE: 04/14/2018 SUBJECTIVE: Patient is in bed, in no acute distress and seen earlier this morning, No fevers and chills. PHYSICAL EXAMINATION: VITAL SIGNS: Temperature is 98, blood pressure is 120/70, respiratory rate of 16. HEENT: Unremarkable. NECK: Supple. LUNGS: Decreased breath sounds. HEART: Normal S1, S2. ABDOMEN: Soft, nontender. LABORATORY DATA: Unchanged. Review of orders confirms the patient to be off of antibiotics. In the CBC, there is a mild elevation of white count of 11,100 on 04/12/2018. ASSESSMENT AND PLAN: This is a 57-year-old, status post sepsis due to Streptococcus viridans and coag-negative staph bacteremia, right gluteal and back cellulitis, multifocal healthcare-associated pneumonia and completed 42 days of antibiotics, currently off and the patient is at risk for developing nosocomial infections. Daniel Torres MD
[2018-04-15] MEDS: Insulin Reg-LOW-Coverage SC SCH ×4 (08:17→23:00)
[2018-04-15] MEDS: Multivitamin With Minerals Tab PO SCH (09:52)
[2018-04-15] MEDS: POLYETHYLENE GLYCOL 3350 17 GM/Dose PACKET PO SCH ×2 (09:53→17:15)
--- NOTE | 2018-04-15 14:50 | CP.PCM.PN ---
<Jorge Luis Lopez - Last Filed: 04/15/18 14:44> Subjective - Date & Time of Evaluation Date of Evaluation: 04/15/18 Time of Evaluation: 06:00 - Subjective Subjective: Patient seen and examined at bedside in no acute distress. He has offered no complaints. No acute events overnight denies shortness of breath, nausea, vomiting, diarrhea, abdominal pain, chest pain, palpitations, dysuria, fevers, chills, headache, cough. Objective - Vital Signs/Intake and Output Vital Signs (last 24 hours): Temp Pulse Resp BP Pulse Ox 98.2 F 96 H 19 144/88 98 04/15/18 07:32 04/15/18 09:51 04/15/18 07:32 04/15/18 09:52 04/15/18 07:32 Intake and Output: 04/15/18 04/15/18 06:59 18:59 Intake Total 780 Balance 780 - Medications Medications: Current Medications Amlodipine Besylate (Norvasc) 10 mg PO DAILY [facility] Last Admin: 04/15/18 09:52 Dose: 10 mg Aspirin (Ecotrin) 81 mg PO DAILY [facility] Last Admin: 04/15/18 09:52 Dose: 81 mg Atorvastatin Calcium (Lipitor) 20 mg PO DIN [facility] Last Admin: 04/14/18 17:17 Dose: 20 mg Citalopram Hydrobromide (Celexa) 10 mg PO DAILY [facility] Last Admin: 04/15/18 09:52 Dose: 10 mg Docusate Sodium (Colace) 100 mg PO BID [facility] Last Admin: 04/15/18 09:52 Dose: 100 mg Folic Acid (Folic Acid) 1 mg PO DAILY [facility] Last Admin: 04/15/18 09:52 Dose: 1 mg Insulin Human Regular (Humulin R Low) 0 units SC [facility] PRN Reason: Protocol Last Admin: 04/15/18 12:47 Dose: Not Given Lisinopril (Zestril) 10 mg PO DAILY [facility] Last Admin: 04/15/18 09:51 Dose: 10 mg Metformin HCl (Glucophage) 500 mg PO BID [facility] Last Admin: 04/15/18 09:52 Dose: 500 mg Multivitamins/Minerals (Therapeutic-M Tab) 1 tab PO 0800 [facility] Last Admin: 04/15/18 09:52 Dose: 1 tab Ondansetron HCl (Zofran Odt) 4 mg PO Q8H PRN PRN Reason: Nausea/Vomiting Last Admin: 04/11/18 22:07 Dose: 4 mg Polyethylene Glycol (Miralax) 17 gm PO BID [facility] Last Admin: 04/15/18 09:53 Dose: 17 gm Thiamine HCl (Vitamin B1 Tab) 100 mg PO DAILY [facility] Last Admin: 04/15/18 09:52 Dose: 100 mg - Labs Labs: 04/11/18 07:01 03/28/18 10:19 PT 12.5 SECONDS (9.4-12.5) 12/09/17 10:00 INR 1.09 (0.93-1.08) H 12/09/17 10:00 APTT 28.3 Seconds (25.1-36.5) 11/30/17 05:30 - Head Exam Head Exam: ATRAUMATIC, NORMAL INSPECTION, NORMOCEPHALIC - Eye Exam Eye Exam: EOMI, Normal appearance - ENT Exam ENT Exam: Mucous Membranes Moist - Respiratory Exam Respiratory Exam: Clear to Ausculation Bilateral, NORMAL BREATHING PATTERN. absent: Rhonchi, Wheezes - Cardiovascular Exam Cardiovascular Exam: REGULAR RHYTHM, +S1, +S2 - GI/Abdominal Exam GI & Abdominal Exam: Soft, Normal Bowel Sounds - Extremities Exam Extremities Exam: Normal Inspection - Back Exam Back Exam: NORMAL INSPECTION - Neurological Exam Neurological Exam: Alert, Awake, Oriented x3 - Psychiatric Exam Psychiatric exam: Normal Affect, Normal Mood - Skin Skin Exam: Normal Color, Warm Assessment and Plan - Assessment and Plan (Free Text) Assessment: 57yo male unknown PMHx admitted for AMS, right hip cellulitis, multifocal pneumonia, influenza A, strep viridians bacteremia with findings of stroke on MRI - acute vs. 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 Patient was treated for bacteremia with IV abx. Patient continues to refuse testing at this time. Guardianship establishment pending. Plan: Altered mental status - Currently at baseline mentation which waxes and wanes - Patient mentation clinically unchanged, able to answer simple questions - Delirium precautions; PT - patient refusing to participate - ASA/Lipitor Coag negative Staphylococcus bacteremia - Last bld clx negative 12/04/17 with completion of 6 week course of antibiotics - Monitor WBC, ESR, CRP weekly - Echocardiogram unable to rule out vegetations, family is unavailable for consent for TAHIR Stage 1 decubitus ulcer-improving - Patient refuses to get out of bed to chair - Refusing PT - Skin breakdown improving - Continue with Q2 turns, Wound care consulted - Folic acid, Thiamine Colonic mass - CT Abd/Pelvis showing colonic mass and hepatic lesions - GI consulted: follow recs - Flex sig/colonoscopy refused by patient at this time - Family unable to be contacted for consent Diabetes mellitus type 2 in non-obese - Continue ISS low - Metformin 500mg BID - Monitor glucose - Carb consistent diet HTN - Lisinopril 10 daily - Stable, continue to monitor Affective disorder - Celexa 10mg PO Daily Constipation - Colace 100mg BID - Continues to have BMs Prophylaxis - Patient tolerating meals, no need for GI ppx - SCDs Dispo: Patient lacks decision making capacity and is unable to comprehend his diagnosis, medical treatment, potential benefit and risk associated with and without treatment. Guardianship paperwork being processed followed by potential placement. Court scheduled for 05/05/2018 concerning guardianship Case and plan discussed with attending <Deanna Schumacher - Last Filed: 04/16/18 14:02> Objective - Vital Signs/Intake and Output Vital Signs (last 24 hours): Temp Pulse Resp BP Pulse Ox 97.7 F 90 20 109/68 95 04/16/18 13:28 04/16/18 13:28 04/16/18 13:28 04/16/18 13:28 04/16/18 13:28 Intake and Output: 04/16/18 04/16/18 06:59 18:59 Intake Total 660 Balance 660 - Medications Medications: Current Medications Amlodipine Besylate (Norvasc) 10 mg PO DAILY [facility] Last Admin: 04/16/18 09:22 Dose: 10 mg Aspirin (Ecotrin) 81 mg PO DAILY [facility] Last Admin: 04/16/18 09:22 Dose: 81 mg Atorvastatin Calcium (Lipitor) 20 mg PO DIN [facility] Last Admin: 04/15/18 17:16 Dose: 20 mg Citalopram Hydrobromide (Celexa) 10 mg PO DAILY [facility] Last Admin: 04/16/18 09:23 Dose: 10 mg Docusate Sodium (Colace) 100 mg PO BID [facility] Last Admin: 04/16/18 09:21 Dose: 100 mg Folic Acid (Folic Acid) 1 mg PO DAILY [facility] Last Admin: 04/16/18 09:21 Dose: 1 mg Insulin Human Regular (Humulin R Low) 0 units SC ACHS [facility] PRN Reason: Protocol Last Admin: 04/16/18 12:30 Dose: 2 units Lisinopril (Zestril) 10 mg PO DAILY [facility] Last Admin: 04/16/18 09:23 Dose: 10 mg Metformin HCl (Glucophage) 500 mg PO BID [facility] Last Admin: 04/16/18 09:22 Dose: 500 mg Multivitamins/Minerals (Therapeutic-M Tab) 1 tab PO 0800 [facility] Last Admin: 04/16/18 09:22 Dose: 1 tab Ondansetron HCl (Zofran Odt) 4 mg PO Q8H PRN PRN Reason: Nausea/Vomiting Last Admin: 04/11/18 22:07 Dose: 4 mg Polyethylene Glycol (Miralax) 17 gm PO BID [facility] Last Admin: 04/16/18 09:24 Dose: 17 gm Thiamine HCl (Vitamin B1 Tab) 100 mg PO DAILY [facility] Last Admin: 04/16/18 09:22 Dose: 100 mg - Labs Labs: 04/11/18 07:01 03/28/18 10:19 PT 12.5 SECONDS (9.4-12.5) 12/09/17 10:00 INR 1.09 (0.93-1.08) H 12/09/17 10:00 APTT 28.3 Seconds (25.1-36.5) 11/30/17 05:30 Attending/Attestation - Attestation I have personally seen and examined this patient.: Yes I have fully participated in the care of the patient.: Yes I have reviewed all pertinent clinical information, including history, physical exam and plan: Yes Notes (Text): 04/16/18 14:02 Medical record note made by the resident after discussion with my direction and input after the patient was personally seen and examined by me. I have reviewed the chart and agree that the record accurately reflects by personal performance of the history, physical exam, data review, and medical decision-making, in the course for the patient. I have also personally directed the plan of care. Patient is stable at his base line.There is no active medical issue at this time.Patient is awaiting for guardianship paper work for placement.
--- NOTE | 2018-04-15 20:37 | PN ---
DATE: 04/15/2018 SUBJECTIVE: The patient is in bed, in no acute distress, nontoxic. PHYSICAL EXAMINATION: VITAL SIGNS: Temperature is 98, blood pressure is 140/80, respiratory rate of 18, heart rate of 90. HEENT: Unremarkable. NECK: Supple. LUNGS: Decreased breath sounds. HEART: Normal S1 and S2. ABDOMEN: Soft, nontender. LABORATORY EXAMINATION: Reviewed. ASSESSMENT AND PLAN: A 57-year-old male, status post sepsis due to Streptococcus viridans, coagulase-negative staphylococci bacteremia, right gluteal and back cellulitis, healthcare-associated pneumonia. Continue antibiotic therapy. Currently off antibiotics. He is afebrile. We will follow closely with you. Daniel Torres MD
[2018-04-16] MEDS: Insulin Reg-LOW-Coverage SC SCH ×4 (08:00→21:57)
--- NOTE | 2018-04-16 08:21 | PN ---
DATE: 04/16/2018 SUBJECTIVE: The patient is in bed, in no acute distress, nontoxic. PHYSICAL EXAMINATION: VITAL SIGNS: On exam, temperature is 98, blood pressure is 110/70, respiratory rate of 20. HEENT: Examination of HEENT is unremarkable. NECK: Supple. LUNGS: Have decreased breath sounds. HEART: Normal S1, S2. ABDOMEN: Soft, nontender. LABORATORY DATA: Laboratory examination reveals the patient's white count of 11,000, hemoglobin of 11, platelets of 375. Creatinine is 0.16. Review of orders reveals the patient to be off of antibiotics. ASSESSMENT AND PLAN: A 57-year-old male with status post Streptococcus viridans and coag-negative Staphylococcus bacteremia, right gluteal and back cellulitis, healthcare-associated pneumonia, currently off of antibiotics, afebrile. The patient is at risk for developing nosocomial infections. Daniel Torres MD
[2018-04-16] MEDS: Multivitamin With Minerals Tab PO SCH (09:22)
[2018-04-16] MEDS: POLYETHYLENE GLYCOL 3350 17 GM/Dose PACKET PO SCH (09:24)
--- NOTE | 2018-04-16 11:35 | CP.PCM.PN ---
<Rocael Bowie - Last Filed: 04/16/18 11:32> Subjective - Date & Time of Evaluation Date of Evaluation: 04/16/18 Time of Evaluation: 11:32 - Subjective Subjective: Patient seen and evaluated this AM. No acute events reported overnight. Clinically unchanged. Patient indicates bowel movement within the past 24 hours. Objective - Vital Signs/Intake and Output Vital Signs (last 24 hours): Temp Pulse Resp BP Pulse Ox 98.4 F 90 20 109/68 99 04/15/18 18:00 04/16/18 09:23 04/15/18 18:00 04/16/18 09:23 04/15/18 18:00 Intake and Output: 04/16/18 04/16/18 06:59 18:59 Intake Total 660 Balance 660 - Medications Medications: Current Medications Amlodipine Besylate (Norvasc) 10 mg PO DAILY [facility] Last Admin: 04/16/18 09:22 Dose: 10 mg Aspirin (Ecotrin) 81 mg PO DAILY [facility] Last Admin: 04/16/18 09:22 Dose: 81 mg Atorvastatin Calcium (Lipitor) 20 mg PO DIN [facility] Last Admin: 04/15/18 17:16 Dose: 20 mg Citalopram Hydrobromide (Celexa) 10 mg PO DAILY [facility] Last Admin: 04/16/18 09:23 Dose: 10 mg Docusate Sodium (Colace) 100 mg PO BID [facility] Last Admin: 04/16/18 09:21 Dose: 100 mg Folic Acid (Folic Acid) 1 mg PO DAILY [facility] Last Admin: 04/16/18 09:21 Dose: 1 mg Insulin Human Regular (Humulin R Low) 0 units SC ACHS [facility] PRN Reason: Protocol Last Admin: 04/16/18 08:00 Dose: Not Given Lisinopril (Zestril) 10 mg PO DAILY [facility] Last Admin: 04/16/18 09:23 Dose: 10 mg Metformin HCl (Glucophage) 500 mg PO BID [facility] Last Admin: 04/16/18 09:22 Dose: 500 mg Multivitamins/Minerals (Therapeutic-M Tab) 1 tab PO 0800 [facility] Last Admin: 04/16/18 09:22 Dose: 1 tab Ondansetron HCl (Zofran Odt) 4 mg PO Q8H PRN PRN Reason: Nausea/Vomiting Last Admin: 04/11/18 22:07 Dose: 4 mg Polyethylene Glycol (Miralax) 17 gm PO BID [facility] Last Admin: 04/16/18 09:24 Dose: 17 gm Thiamine HCl (Vitamin B1 Tab) 100 mg PO DAILY [facility] Last Admin: 04/16/18 09:22 Dose: 100 mg - Labs Labs: 04/11/18 07:01 03/28/18 10:19 PT 12.5 SECONDS (9.4-12.5) 12/09/17 10:00 INR 1.09 (0.93-1.08) H 12/09/17 10:00 APTT 28.3 Seconds (25.1-36.5) 11/30/17 05:30 - Constitutional Appears: No Acute Distress - Head Exam Head Exam: ATRAUMATIC, NORMAL INSPECTION, NORMOCEPHALIC - Eye Exam Eye Exam: EOMI, PERRL - ENT Exam ENT Exam: Mucous Membranes Moist - Respiratory Exam Respiratory Exam: Clear to Ausculation Bilateral, NORMAL BREATHING PATTERN - Cardiovascular Exam Cardiovascular Exam: REGULAR RHYTHM, +S1, +S2 - GI/Abdominal Exam GI & Abdominal Exam: Soft, Normal Bowel Sounds. absent: Tenderness - Extremities Exam Extremities Exam: absent: Full ROM, Pedal Edema, Tenderness Additional comments: josh mckeon b/l - Neurological Exam Neurological Exam: Alert, Awake, Oriented x3 Additional comments: motor and sensory grossly intact - Psychiatric Exam Psychiatric exam: Flat Affect - Skin Skin Exam: Dry, Intact Assessment and Plan - Assessment and Plan (Free Text) Assessment: 57yo male unknown PMHx admitted for AMS, right hip cellulitis, multifocal pneumonia, influenza A, strep viridians bacteremia with findings of stroke on MRI - acute vs. 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 Patient was treated for bacteremia with IV abx. Patient continues to refuse testing at this time. Guardianship establishment pending. Plan: Altered mental status - Currently at baseline mentation which waxes and wanes - Patient mentation clinically unchanged, able to answer simple questions - Delirium precautions; PT - patient refusing to participate - ASA/Lipitor Coag negative Staphylococcus bacteremia - Last bld clx negative 12/04/17 with completion of 6 week course of antibiotics - Monitor WBC, ESR, CRP weekly - Echocardiogram unable to rule out vegetations, family is unavailable for consent for TAHIR Stage 1 decubitus ulcer-improving - Patient refuses to get out of bed to chair - Refusing PT - Skin breakdown improving - Continue with Q2 turns, Wound care consulted - Folic acid, Thiamine Colonic mass - CT Abd/Pelvis showing colonic mass and hepatic lesions - GI consulted: follow recs - Flex sig/colonoscopy refused by patient at this time - Family unable to be contacted for consent Diabetes mellitus type 2 in non-obese - Continue ISS low - Metformin 500mg BID - Monitor glucose - Carb consistent diet HTN - Lisinopril 10 daily - Stable, continue to monitor Affective disorder - Celexa 10mg PO Daily Constipation - Colace 100mg BID - Continues to have BMs Prophylaxis - Patient tolerating meals, no need for GI ppx - SCDs Dispo: Patient lacks decision making capacity and is unable to comprehend his diagnosis, medical treatment, potential benefit and risk associated with and without treatment. Guardianship paperwork being processed followed by potential placement. Court scheduled for 05/05/2018 concerning guardianship Case and plan discussed with attending <Deanna Schumacher - Last Filed: 04/16/18 14:03> Objective - Vital Signs/Intake and Output Vital Signs (last 24 hours): Temp Pulse Resp BP Pulse Ox 97.7 F 90 20 109/68 95 04/16/18 13:28 04/16/18 13:28 04/16/18 13:28 04/16/18 13:28 04/16/18 13:28 Intake and Output: 04/16/18 04/16/18 06:59 18:59 Intake Total 660 Balance 660 - Medications Medications: Current Medications Amlodipine Besylate (Norvasc) 10 mg PO DAILY [facility] Last Admin: 04/16/18 09:22 Dose: 10 mg Aspirin (Ecotrin) 81 mg PO DAILY [facility] Last Admin: 04/16/18 09:22 Dose: 81 mg Atorvastatin Calcium (Lipitor) 20 mg PO DIN [facility] Last Admin: 04/15/18 17:16 Dose: 20 mg Citalopram Hydrobromide (Celexa) 10 mg PO DAILY [facility] Last Admin: 04/16/18 09:23 Dose: 10 mg Docusate Sodium (Colace) 100 mg PO BID [facility] Last Admin: 04/16/18 09:21 Dose: 100 mg Folic Acid (Folic Acid) 1 mg PO DAILY [facility] Last Admin: 04/16/18 09:21 Dose: 1 mg Insulin Human Regular (Humulin R Low) 0 units SC [facility] PRN Reason: Protocol Last Admin: 04/16/18 12:30 Dose: 2 units Lisinopril (Zestril) 10 mg PO DAILY [facility] Last Admin: 04/16/18 09:23 Dose: 10 mg Metformin HCl (Glucophage) 500 mg PO BID [facility] Last Admin: 04/16/18 09:22 Dose: 500 mg Multivitamins/Minerals (Therapeutic-M Tab) 1 tab PO 0800 [facility] Last Admin: 04/16/18 09:22 Dose: 1 tab Ondansetron HCl (Zofran Odt) 4 mg PO Q8H PRN PRN Reason: Nausea/Vomiting Last Admin: 04/11/18 22:07 Dose: 4 mg Polyethylene Glycol (Miralax) 17 gm PO BID [facility] Last Admin: 04/16/18 09:24 Dose: 17 gm Thiamine HCl (Vitamin B1 Tab) 100 mg PO DAILY [facility] Last Admin: 04/16/18 09:22 Dose: 100 mg - Labs Labs: 04/11/18 07:01 03/28/18 10:19 PT 12.5 SECONDS (9.4-12.5) 12/09/17 10:00 INR 1.09 (0.93-1.08) H 12/09/17 10:00 APTT 28.3 Seconds (25.1-36.5) 11/30/17 05:30 Attending/Attestation - Attestation I have personally seen and examined this patient.: Yes I have fully participated in the care of the patient.: Yes I have reviewed all pertinent clinical information, including history, physical exam and plan: Yes Notes (Text): 04/16/18 14:03 Medical record note made by the resident after discussion with my direction and input after the patient was personally seen and examined by me. I have reviewed the chart and agree that the record accurately reflects by personal performance of the history, physical exam, data review, and medical decision-making, in the course for the patient. I have also personally directed the plan of care. 04/16/18 14:03
[2018-04-17] MEDS: Insulin Reg-LOW-Coverage SC SCH ×3 (07:30→19:06)
--- NOTE | 2018-04-17 09:22 | PN ---
DATE: 04/17/2018 SUBJECTIVE: The patient is in bed in no acute distress. OBJECTIVE: VITAL SIGNS: On exam, temperature is 97, blood pressure is 120/80, respiratory rate of 20. HEENT: Examination is unremarkable, NECK: Supple. LUNGS: Have decreased breath sounds. HEART: Normal S1, S2. ABDOMEN: Soft, nontender. DATA: Laboratory examination reveals a white count of 11,000. Chemistries reveals the patient's creatinine is 0.6. ASSESSMENT AND PLAN: This is a 57-year-old male status post strep viridans and coag-negative Staph bacteremia with the right gluteal and back cellulitis, healthcare-associated pneumonia, currently off of antibiotics, afebrile. The patient is at risk for developing nosocomial infections. Daniel Torres MD
[2018-04-17] MEDS: Multivitamin With Minerals Tab PO SCH (11:20)
[2018-04-17] MEDS: POLYETHYLENE GLYCOL 3350 17 GM/Dose PACKET PO SCH ×2 (11:20→17:59)
--- NOTE | 2018-04-17 11:29 | CP.PCM.PN ---
<Rocael Bowie - Last Filed: 04/17/18 11:28> Subjective - Date & Time of Evaluation Date of Evaluation: 04/17/18 Time of Evaluation: 11:29 - Subjective Subjective: Patient seen and evaluated. No acute events reported overnight. Patient clinically unchanged. Objective - Vital Signs/Intake and Output Vital Signs (last 24 hours): Temp Pulse Resp BP Pulse Ox 97 F L 85 20 120/80 95 04/17/18 08:08 04/17/18 11:20 04/17/18 08:08 04/17/18 11:20 04/17/18 08:08 Intake and Output: 04/17/18 04/17/18 06:59 18:59 Intake Total 0 Balance 0 - Medications Medications: Current Medications Amlodipine Besylate (Norvasc) 10 mg PO DAILY [facility] Last Admin: 04/17/18 11:20 Dose: 10 mg Aspirin (Ecotrin) 81 mg PO DAILY [facility] Last Admin: 04/17/18 11:19 Dose: 81 mg Atorvastatin Calcium (Lipitor) 20 mg PO DIN [facility] Last Admin: 04/16/18 18:02 Dose: 20 mg Citalopram Hydrobromide (Celexa) 10 mg PO DAILY [facility] Last Admin: 04/17/18 11:18 Dose: 10 mg Docusate Sodium (Colace) 100 mg PO BID [facility] Last Admin: 04/17/18 11:19 Dose: 100 mg Folic Acid (Folic Acid) 1 mg PO DAILY [facility] Last Admin: 04/17/18 11:19 Dose: 1 mg Insulin Human Regular (Humulin R Low) 0 units SC [facility] PRN Reason: Protocol Last Admin: 04/16/18 21:57 Dose: 2 units Lisinopril (Zestril) 10 mg PO DAILY [facility] Last Admin: 04/17/18 11:20 Dose: 10 mg Metformin HCl (Glucophage) 500 mg PO BID [facility] Last Admin: 04/17/18 11:19 Dose: 500 mg Multivitamins/Minerals (Therapeutic-M Tab) 1 tab PO 0800 [facility] Last Admin: 04/17/18 11:20 Dose: 1 tab Ondansetron HCl (Zofran Odt) 4 mg PO Q8H PRN PRN Reason: Nausea/Vomiting Last Admin: 04/11/18 22:07 Dose: 4 mg Polyethylene Glycol (Miralax) 17 gm PO BID [facility] Last Admin: 04/17/18 11:20 Dose: 17 gm Thiamine HCl (Vitamin B1 Tab) 100 mg PO DAILY [facility] Last Admin: 04/17/18 11:20 Dose: 100 mg - Labs Labs: 04/11/18 07:01 03/28/18 10:19 PT 12.5 SECONDS (9.4-12.5) 12/09/17 10:00 INR 1.09 (0.93-1.08) H 12/09/17 10:00 APTT 28.3 Seconds (25.1-36.5) 11/30/17 05:30 - Constitutional Appears: No Acute Distress - Head Exam Head Exam: ATRAUMATIC, NORMAL INSPECTION, NORMOCEPHALIC - Eye Exam Eye Exam: EOMI, PERRL - ENT Exam ENT Exam: Mucous Membranes Moist - Neck Exam Neck Exam: Full ROM - Respiratory Exam Respiratory Exam: Clear to Ausculation Bilateral, NORMAL BREATHING PATTERN - Cardiovascular Exam Cardiovascular Exam: REGULAR RHYTHM, +S1, +S2 - GI/Abdominal Exam GI & Abdominal Exam: Soft, Normal Bowel Sounds - Neurological Exam Neurological Exam: Alert, Awake Additional comments: motor and sensory grossly intact - Psychiatric Exam Psychiatric exam: Flat Affect - Skin Skin Exam: Dry, Intact Assessment and Plan - Assessment and Plan (Free Text) Assessment: 57yo male unknown PMHx admitted for AMS, right hip cellulitis, multifocal pneumonia, influenza A, strep viridians bacteremia with findings of stroke on MRI - acute vs. 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 Patient was treated for bacteremia with IV abx. Patient continues to refuse testing at this time. Guardianship establishment pending. Plan: Altered mental status - Currently at baseline mentation which waxes and wanes - Patient mentation clinically unchanged, able to answer simple questions - Delirium precautions; PT - patient refusing to participate - ASA/Lipitor Coag negative Staphylococcus bacteremia - Last bld clx negative 12/04/17 with completion of 6 week course of antibiotics - Monitor WBC, ESR, CRP weekly - Echocardiogram unable to rule out vegetations, family is unavailable for consent for TAHIR Stage 1 decubitus ulcer-improving - Patient refuses to get out of bed to chair - Refusing PT - Skin breakdown improving - Continue with Q2 turns, Wound care consulted - Folic acid, Thiamine Colonic mass - CT Abd/Pelvis showing colonic mass and hepatic lesions - GI consulted: follow recs - Flex sig/colonoscopy refused by patient at this time - Family unable to be contacted for consent Diabetes mellitus type 2 in non-obese - Continue ISS low - Metformin 500mg BID - Monitor glucose - Carb consistent diet HTN - Lisinopril 10 daily - Stable, continue to monitor Affective disorder - Celexa 10mg PO Daily Constipation - Colace 100mg BID - Continues to have BMs Prophylaxis - Patient tolerating meals, no need for GI ppx - SCDs Dispo: Patient lacks decision making capacity and is unable to comprehend his diagnosis, medical treatment, potential benefit and risk associated with and without treatment. Guardianship paperwork being processed followed by potential placement. Court scheduled for 05/05/2018 concerning guardianship Case and plan discussed with attending <Deanna Schumacher - Last Filed: 04/17/18 11:41> Objective - Vital Signs/Intake and Output Vital Signs (last 24 hours): Temp Pulse Resp BP Pulse Ox 97 F L 85 20 120/80 95 04/17/18 08:08 04/17/18 11:20 04/17/18 08:08 04/17/18 11:20 04/17/18 08:08 Intake and Output: 04/17/18 04/17/18 06:59 18:59 Intake Total 0 Balance 0 - Medications Medications: Current Medications Amlodipine Besylate (Norvasc) 10 mg PO DAILY [facility] Last Admin: 04/17/18 11:20 Dose: 10 mg Aspirin (Ecotrin) 81 mg PO DAILY [facility] Last Admin: 04/17/18 11:19 Dose: 81 mg Atorvastatin Calcium (Lipitor) 20 mg PO DIN [facility] Last Admin: 04/16/18 18:02 Dose: 20 mg Citalopram Hydrobromide (Celexa) 10 mg PO DAILY [facility] Last Admin: 04/17/18 11:18 Dose: 10 mg Docusate Sodium (Colace) 100 mg PO BID [facility] Last Admin: 04/17/18 11:19 Dose: 100 mg Folic Acid (Folic Acid) 1 mg PO DAILY [facility] Last Admin: 04/17/18 11:19 Dose: 1 mg Insulin Human Regular (Humulin R Low) 0 units SC ACHS [facility] PRN Reason: Protocol Last Admin: 04/16/18 21:57 Dose: 2 units Lisinopril (Zestril) 10 mg PO DAILY [facility] Last Admin: 04/17/18 11:20 Dose: 10 mg Metformin HCl (Glucophage) 500 mg PO BID [facility] Last Admin: 04/17/18 11:19 Dose: 500 mg Multivitamins/Minerals (Therapeutic-M Tab) 1 tab PO 0800 [facility] Last Admin: 04/17/18 11:20 Dose: 1 tab Ondansetron HCl (Zofran Odt) 4 mg PO Q8H PRN PRN Reason: Nausea/Vomiting Last Admin: 04/11/18 22:07 Dose: 4 mg Polyethylene Glycol (Miralax) 17 gm PO BID [facility] Last Admin: 04/17/18 11:20 Dose: 17 gm Thiamine HCl (Vitamin B1 Tab) 100 mg PO DAILY [facility] Last Admin: 04/17/18 11:20 Dose: 100 mg - Labs Labs: 04/11/18 07:01 03/28/18 10:19 PT 12.5 SECONDS (9.4-12.5) 12/09/17 10:00 INR 1.09 (0.93-1.08) H 12/09/17 10:00 APTT 28.3 Seconds (25.1-36.5) 11/30/17 05:30 Attending/Attestation - Attestation I have personally seen and examined this patient.: Yes I have fully participated in the care of the patient.: Yes I have reviewed all pertinent clinical information, including history, physical exam and plan: Yes Notes (Text): 04/17/18 11:36 Medical record note made by the resident after discussion with my direction and input after the patient was personally seen and examined by me. I have reviewed the chart and agree that the record accurately reflects by personal performance of the history, physical exam, data review, and medical decision-making, in the course for the patient. I have also personally directed the plan of care. 57 yrs old male , S/P sepsis due to strep viridans and CoNS bacteremia from right gluteal and back cellulitis, S/P multifocal HCAP on top of Influenza A infection and S/P Sammie infection of sacral area as well. Mental status is at base line, Patient is awaiting for placement.
[2018-04-18 06:52] LABS: BLOOD UREA NITROGEN 21 mg/dL (7-21); CALCIUM 9.3 mg/dL (8.4-10.5); GFR NON-AFRICAN AMERICAN > 60
[2018-04-18 07:55] LABS: HEMOGLOBIN 11.2 g/dL (14.0-18.0); MEAN CELL VOLUME 80.9 fl (80.0-105.0); MEAN CORPUSCULAR HEMOGLOBIN 26.4 pg (25.0-35.0); MEAN CORPUSCULAR HGB CONC 32.7 g/dl (31.0-37.0); MEAN PLATELET VOLUME 9.3 fl (7.0-11.0); RBC 4.24 10^6/uL (3.5-6.1); RED CELL DISTRIBUTION WIDTH 14.3 % (11.5-14.5); WHITE BLOOD COUNT 9.2 10^3/ul (4.5-11.0)
[2018-04-18] MEDS: Insulin Reg-LOW-Coverage SC SCH ×4 (08:30→22:11)
[2018-04-18] MEDS: Multivitamin With Minerals Tab PO SCH (08:35)
[2018-04-18] MEDS: POLYETHYLENE GLYCOL 3350 17 GM/Dose PACKET PO SCH ×2 (09:03→17:36)
--- NOTE | 2018-04-18 11:25 | CP.PCM.PN ---
<Jorge Luis oLpez - Last Filed: 04/18/18 11:22> Subjective - Date & Time of Evaluation Date of Evaluation: 04/18/18 Time of Evaluation: 07:00 - Subjective Subjective: Patient seen and examined at bedside in no acute distress. Offers no complaints at the moment. Denies shortness of breath, chest pain, abdominal pain, palpitations, nausea, vomiting, diarrhea, headache, cough, fevers, chills. Objective - Vital Signs/Intake and Output Vital Signs (last 24 hours): Temp Pulse Resp BP Pulse Ox 97 F L 86 20 115/72 96 04/18/18 07:46 04/18/18 09:04 04/18/18 07:46 04/18/18 09:04 04/18/18 07:46 Intake and Output: 04/18/18 04/18/18 06:59 18:59 Intake Total 0 Balance 0 - Medications Medications: Current Medications Amlodipine Besylate (Norvasc) 10 mg PO DAILY [facility] Last Admin: 04/18/18 09:04 Dose: 10 mg Aspirin (Ecotrin) 81 mg PO DAILY [facility] Last Admin: 04/18/18 09:04 Dose: 81 mg Atorvastatin Calcium (Lipitor) 20 mg PO DIN [facility] Last Admin: 04/17/18 17:58 Dose: 20 mg Citalopram Hydrobromide (Celexa) 10 mg PO DAILY [facility] Last Admin: 04/18/18 09:03 Dose: 10 mg Docusate Sodium (Colace) 100 mg PO BID [facility] Last Admin: 04/18/18 09:04 Dose: 100 mg Folic Acid (Folic Acid) 1 mg PO DAILY [facility] Last Admin: 04/18/18 09:04 Dose: 1 mg Insulin Human Regular (Humulin R Low) 0 units SC [facility] PRN Reason: Protocol Last Admin: 04/18/18 08:30 Dose: Not Given Lisinopril (Zestril) 10 mg PO DAILY [facility] Last Admin: 04/18/18 09:04 Dose: 10 mg Metformin HCl (Glucophage) 500 mg PO BID [facility] Last Admin: 04/18/18 09:04 Dose: 500 mg Multivitamins/Minerals (Therapeutic-M Tab) 1 tab PO 0800 [facility] Last Admin: 04/18/18 08:35 Dose: 1 tab Ondansetron HCl (Zofran Odt) 4 mg PO Q8H PRN PRN Reason: Nausea/Vomiting Last Admin: 04/11/18 22:07 Dose: 4 mg Polyethylene Glycol (Miralax) 17 gm PO BID [facility] Last Admin: 04/18/18 09:03 Dose: 17 gm Thiamine HCl (Vitamin B1 Tab) 100 mg PO DAILY [facility] Last Admin: 04/18/18 09:03 Dose: 100 mg - Labs Labs: 04/18/18 06:00 04/18/18 06:00 PT 12.5 SECONDS (9.4-12.5) 12/09/17 10:00 INR 1.09 (0.93-1.08) H 12/09/17 10:00 APTT 28.3 Seconds (25.1-36.5) 11/30/17 05:30 - Head Exam Head Exam: ATRAUMATIC, NORMAL INSPECTION, NORMOCEPHALIC - Eye Exam Eye Exam: EOMI, Normal appearance - ENT Exam ENT Exam: Mucous Membranes Moist - Respiratory Exam Respiratory Exam: Clear to Ausculation Bilateral. absent: Rhonchi, Wheezes - Cardiovascular Exam Cardiovascular Exam: REGULAR RHYTHM, +S1, +S2 - GI/Abdominal Exam GI & Abdominal Exam: Soft, Normal Bowel Sounds - Extremities Exam Extremities Exam: Normal Inspection - Back Exam Back Exam: NORMAL INSPECTION - Neurological Exam Neurological Exam: Alert, Awake, Oriented x3 - Psychiatric Exam Psychiatric exam: Flat Affect - Skin Skin Exam: Intact, Normal Color, Warm Assessment and Plan - Assessment and Plan (Free Text) Assessment: 57yo male unknown PMHx admitted for AMS, right hip cellulitis, multifocal pneumonia, influenza A, strep viridians bacteremia with findings of stroke on MRI - acute vs. 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 Patient was treated for bacteremia with IV abx. Patient continues to refuse testing at this time. Guardianship establishment pending. Plan: Altered mental status - Currently at baseline mentation which waxes and wanes - Patient mentation clinically unchanged, able to answer simple questions - Delirium precautions; PT - patient refusing to participate - ASA/Lipitor Coag negative Staphylococcus bacteremia - Last bld clx negative 12/04/17 with completion of 6 week course of antibiotics - Monitor WBC, ESR, CRP weekly - Echocardiogram unable to rule out vegetations, family is unavailable for consent for TAHIR Stage 1 decubitus ulcer-improving - Patient refuses to get out of bed to chair - Refusing PT - Skin breakdown improving - Continue with Q2 turns, Wound care consulted - Folic acid, Thiamine Colonic mass - CT Abd/Pelvis showing colonic mass and hepatic lesions - GI consulted: follow recs - Flex sig/colonoscopy refused by patient at this time - Family unable to be contacted for consent Diabetes mellitus type 2 in non-obese - Continue ISS low - Metformin 500mg BID - Monitor glucose - Carb consistent diet HTN - Lisinopril 10 daily - Stable, continue to monitor Affective disorder - Celexa 10mg PO Daily Constipation - Colace 100mg BID - Will add one dose of miralax Prophylaxis - Patient tolerating meals, no need for GI ppx - SCDs Dispo: Patient lacks decision making capacity and is unable to comprehend his diagnosis, medical treatment, potential benefit and risk associated with and without treatment. Guardianship paperwork being processed followed by potential placement. Court scheduled for 05/05/2018 concerning guardianship Case and plan discussed with attending <Sixto Galo - Last Filed: 04/18/18 11:55> Objective - Vital Signs/Intake and Output Vital Signs (last 24 hours): Temp Pulse Resp BP Pulse Ox 97 F L 86 20 115/72 96 04/18/18 07:46 04/18/18 09:04 04/18/18 07:46 04/18/18 09:04 04/18/18 07:46 Intake and Output: 04/18/18 04/18/18 06:59 18:59 Intake Total 0 Balance 0 - Medications Medications: Current Medications Amlodipine Besylate (Norvasc) 10 mg PO DAILY [facility] Last Admin: 04/18/18 09:04 Dose: 10 mg Aspirin (Ecotrin) 81 mg PO DAILY [facility] Last Admin: 04/18/18 09:04 Dose: 81 mg Atorvastatin Calcium (Lipitor) 20 mg PO DIN [facility] Last Admin: 04/17/18 17:58 Dose: 20 mg Citalopram Hydrobromide (Celexa) 10 mg PO DAILY [facility] Last Admin: 04/18/18 09:03 Dose: 10 mg Docusate Sodium (Colace) 100 mg PO BID [facility] Last Admin: 04/18/18 09:04 Dose: 100 mg Folic Acid (Folic Acid) 1 mg PO DAILY [facility] Last Admin: 04/18/18 09:04 Dose: 1 mg Insulin Human Regular (Humulin R Low) 0 units SC ACHS [facility] PRN Reason: Protocol Last Admin: 04/18/18 08:30 Dose: Not Given Lisinopril (Zestril) 10 mg PO DAILY [facility] Last Admin: 04/18/18 09:04 Dose: 10 mg Metformin HCl (Glucophage) 500 mg PO BID [facility] Last Admin: 04/18/18 09:04 Dose: 500 mg Multivitamins/Minerals (Therapeutic-M Tab) 1 tab PO 0800 [facility] Last Admin: 04/18/18 08:35 Dose: 1 tab Ondansetron HCl (Zofran Odt) 4 mg PO Q8H PRN PRN Reason: Nausea/Vomiting Last Admin: 04/11/18 22:07 Dose: 4 mg Polyethylene Glycol (Miralax) 17 gm PO BID [facility] Last Admin: 04/18/18 09:03 Dose: 17 gm Thiamine HCl (Vitamin B1 Tab) 100 mg PO DAILY [facility] Last Admin: 04/18/18 09:03 Dose: 100 mg - Labs Labs: 04/18/18 06:00 04/18/18 06:00 PT 12.5 SECONDS (9.4-12.5) 12/09/17 10:00 INR 1.09 (0.93-1.08) H 12/09/17 10:00 APTT 28.3 Seconds (25.1-36.5) 11/30/17 05:30 Attending/Attestation - Attestation I have personally seen and examined this patient.: Yes I have fully participated in the care of the patient.: Yes I have reviewed all pertinent clinical information, including history, physical exam and plan: Yes Notes (Text): 04/18/18 11:53 57 year old male who was admitted with altered mental status found to have CVA, bacteremia, right gluteal cellulitis and multifocal pneumonia. He is s/p antibiotics treatment. His mental status appears at his baseline. He is currently pending court appointment and awaiting for placement. Sixto Galo MD Hospitalist.
[2018-04-18] MEDS ORDERED: POLYETHYLENE GLYCOL 3350 17 GM/Dose PACKET PO ONE (11:27)
--- NOTE | 2018-04-18 18:15 | PN ---
DATE: 04/18/2018 SUBJECTIVE: The patient is in bed, was seen earlier today in 367. PHYSICAL EXAMINATION: VITAL SIGNS: Temperature is 97, blood pressure is 115/70, respiratory rate of 20, heart rate of 86. HEENT: Unremarkable. NECK: Supple. LUNGS: Have decreased breath sounds. HEART: Normal S1, S2. ABDOMEN: Soft, nontender. LABORATORY DATA: Reveals a white count of 9.2 and chemistries are noted. Microbiology is reviewed and review of orders reveals the patient to be off of antibiotics. ASSESSMENT AND PLAN: This is a 57-year-old male, status post Streptococcus viridans and coag-negative staphylococcus bacteremia with right gluteal and back cellulitis and healthcare-associated pneumonia, currently off of antibiotics, afebrile. The patient is at risk for developing nosocomial infections. Daniel Torres MD
[2018-04-19] MEDS: Insulin Reg-LOW-Coverage SC SCH ×4 (08:00→21:57)
[2018-04-19] MEDS: Multivitamin With Minerals Tab PO SCH (10:25)
[2018-04-19] MEDS: POLYETHYLENE GLYCOL 3350 17 GM/Dose PACKET PO SCH ×2 (10:25→18:17)
--- NOTE | 2018-04-19 13:56 | CP.PCM.PN ---
<Mariano Morin - Last Filed: 04/19/18 14:19> Subjective - Date & Time of Evaluation Date of Evaluation: 04/19/18 Time of Evaluation: 13:50 - Subjective Subjective: Mariano Morin D.O. PGY1 - Internal Medicine Resident - Medicine Progress Note Pt. was seen and evaluated at bedside this AM, voiced no complaints at time of evaluation. Nursing reported one overnight episode of NBNB Vomitus. Pt. denied DIXON, BV, CP, Palp, SOB, Cough, Abd Pain, NVDC, Hematuria, Dysuria, Numbness/Tingling, Focal Weakness. Objective - Vital Signs/Intake and Output Vital Signs (last 24 hours): Temp Pulse Resp BP Pulse Ox 97 F L 95 H 20 122/74 94 L 04/19/18 08:27 04/19/18 10:24 04/19/18 08:27 04/19/18 10:24 04/19/18 08:27 Intake and Output: 04/19/18 04/19/18 06:59 18:59 Intake Total 1020 Balance 1020 - Medications Medications: Current Medications Amlodipine Besylate (Norvasc) 10 mg PO DAILY [facility] Last Admin: 04/19/18 10:24 Dose: 10 mg Aspirin (Ecotrin) 81 mg PO DAILY [facility] Last Admin: 04/19/18 10:25 Dose: 81 mg Atorvastatin Calcium (Lipitor) 20 mg PO DIN [facility] Last Admin: 04/18/18 17:36 Dose: 20 mg Citalopram Hydrobromide (Celexa) 10 mg PO DAILY [facility] Last Admin: 04/19/18 10:24 Dose: 10 mg Folic Acid (Folic Acid) 1 mg PO DAILY [facility] Last Admin: 04/19/18 10:25 Dose: 1 mg Insulin Human Regular (Humulin R Low) 0 units SC [facility] PRN Reason: Protocol Last Admin: 04/19/18 08:00 Dose: Not Given Lisinopril (Zestril) 10 mg PO DAILY [facility] Last Admin: 04/19/18 10:24 Dose: 10 mg Metformin HCl (Glucophage) 500 mg PO BID [facility] Last Admin: 04/19/18 10:25 Dose: 500 mg Multivitamins/Minerals (Therapeutic-M Tab) 1 tab PO 0800 [facility] Last Admin: 04/19/18 10:25 Dose: 1 tab Ondansetron HCl (Zofran Odt) 4 mg PO Q8H PRN PRN Reason: Nausea/Vomiting Last Admin: 04/11/18 22:07 Dose: 4 mg Polyethylene Glycol (Miralax) 17 gm PO BID [facility] Last Admin: 04/19/18 10:25 Dose: Not Given Thiamine HCl (Vitamin B1 Tab) 100 mg PO DAILY [facility] Last Admin: 04/19/18 10:26 Dose: 100 mg - Labs Labs: 04/18/18 06:00 04/18/18 06:00 PT 12.5 SECONDS (9.4-12.5) 12/09/17 10:00 INR 1.09 (0.93-1.08) H 12/09/17 10:00 APTT 28.3 Seconds (25.1-36.5) 11/30/17 05:30 - Constitutional Appears: Well, No Acute Distress - Head Exam Head Exam: ATRAUMATIC, NORMOCEPHALIC - Eye Exam Eye Exam: EOMI, PERRL. absent: Scleral icterus - ENT Exam ENT Exam: Mucous Membranes Moist - Respiratory Exam Respiratory Exam: Clear to Ausculation Bilateral. absent: Rhonchi, Wheezes - Cardiovascular Exam Cardiovascular Exam: RRR, +S1, +S2 - GI/Abdominal Exam GI & Abdominal Exam: Soft, Normal Bowel Sounds. absent: Tenderness - Extremities Exam Extremities Exam: Normal Inspection Additional comments: 2+ DP/PT BL - Neurological Exam Neurological Exam: Alert, Oriented x3 - Psychiatric Exam Psychiatric exam: Flat Affect - Skin Skin Exam: Normal Color, Warm Assessment and Plan - Assessment and Plan (Free Text) Assessment: 57yo male unknown PMHx admitted for AMS, right hip cellulitis, multifocal pneumonia, influenza A, strep viridians bacteremia with findings of stroke on MRI - acute vs. 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 Patient was treated for bacteremia with IV abx. Patient continues to refuse testing at this time. Guardianship establishment pending. Plan: Altered mental status Currently at baseline mentation which waxes and wanes Patient mentation clinically unchanged, able to answer simple questions Delirium precautions; PT - patient refusing to participate ASA/Lipitor Coag negative Staphylococcus bacteremia Last bld clx negative 12/04/17 with completion of 6 week course of antibiotics Monitor WBC, ESR, CRP weekly Echocardiogram unable to rule out vegetations, family is unavailable for consent for TAHIR Stage 1 decubitus ulcer-improving Patient refuses to get out of bed to chair Refusing PT Skin breakdown improving Continue with Q2 turns, Wound care consulted Folic acid, Thiamine Colonic mass CT Abd/Pelvis showing colonic mass and hepatic lesions GI consulted: follow recs Flex sig/colonoscopy refused by patient at this time Family unable to be contacted for consent Diabetes mellitus type 2 in non-obese Continue ISS low Metformin 500mg BID Monitor glucose Carb consistent diet HTN Lisinopril 10 daily Amlodipine 10 mg PO QD Stable, continue to monitor Affective disorder Celexa 10mg PO Daily Constipation Colace 100mg BID One dose miralax given yesterday; Pt reported 1 BM yesterday will administer x1 dose if continues w/ constipation. Hx EtOH Abuse Thiamine Folic Acid Multivitamin Prophylaxis - Patient tolerating meals, no need for GI ppx - SCDs Dispo: Patient lacks decision making capacity and is unable to comprehend his diagnosis, medical treatment, potential benefit and risk associated with and without treatment. Guardianship paperwork being processed followed by potential placement. Court scheduled for 05/05/2018 concerning guardianship Case discussed w/ attending Dr. Galo <Sixto Galo - Last Filed: 04/19/18 15:54> Objective - Vital Signs/Intake and Output Vital Signs (last 24 hours): Temp Pulse Resp BP Pulse Ox 97 F L 95 H 20 122/74 94 L 04/19/18 08:27 04/19/18 10:24 04/19/18 08:27 04/19/18 10:24 04/19/18 08:27 Intake and Output: 04/19/18 04/19/18 06:59 18:59 Intake Total 1020 Balance 1020 - Medications Medications: Current Medications Amlodipine Besylate (Norvasc) 10 mg PO DAILY [facility] Last Admin: 04/19/18 10:24 Dose: 10 mg Aspirin (Ecotrin) 81 mg PO DAILY [facility] Last Admin: 04/19/18 10:25 Dose: 81 mg Atorvastatin Calcium (Lipitor) 20 mg PO DIN [facility] Last Admin: 04/18/18 17:36 Dose: 20 mg Citalopram Hydrobromide (Celexa) 10 mg PO DAILY [facility] Last Admin: 04/19/18 10:24 Dose: 10 mg Folic Acid (Folic Acid) 1 mg PO DAILY [facility] Last Admin: 04/19/18 10:25 Dose: 1 mg Insulin Human Regular (Humulin R Low) 0 units SC A[facility]S [facility] PRN Reason: Protocol Last Admin: 04/19/18 08:00 Dose: Not Given Lisinopril (Zestril) 10 mg PO DAILY [facility] Last Admin: 04/19/18 10:24 Dose: 10 mg Metformin HCl (Glucophage) 500 mg PO BID [facility] Last Admin: 04/19/18 10:25 Dose: 500 mg Multivitamins/Minerals (Therapeutic-M Tab) 1 tab PO 0800 [facility] Last Admin: 04/19/18 10:25 Dose: 1 tab Ondansetron HCl (Zofran Odt) 4 mg PO Q8H PRN PRN Reason: Nausea/Vomiting Last Admin: 04/11/18 22:07 Dose: 4 mg Polyethylene Glycol (Miralax) 17 gm PO BID [facility] Last Admin: 04/19/18 10:25 Dose: Not Given Thiamine HCl (Vitamin B1 Tab) 100 mg PO DAILY [facility] Last Admin: 04/19/18 10:26 Dose: 100 mg - Labs Labs: 04/18/18 06:00 04/18/18 06:00 PT 12.5 SECONDS (9.4-12.5) 12/09/17 10:00 INR 1.09 (0.93-1.08) H 12/09/17 10:00 APTT 28.3 Seconds (25.1-36.5) 11/30/17 05:30 Attending/Attestation - Attestation I have personally seen and examined this patient.: Yes I have fully participated in the care of the patient.: Yes I have reviewed all pertinent clinical information, including history, physical exam and plan: Yes Notes (Text): 04/19/18 15:54 57 year old male who was admitted with altered mental status found to have CVA, bacteremia, right gluteal cellulitis and multifocal pneumonia. He is s/p antibiotics treatment. His mental status appears at his baseline. He is currently pending court appointment and awaiting for placement. He is comfortable this morning without any new complaints. Sixto Galo MD Hospitalist.
--- NOTE | 2018-04-19 23:54 | PN ---
DATE: 04/19/2018 SUBJECTIVE: Patient is in bed, in no acute distress, nontoxic. PHYSICAL EXAMINATION: VITAL SIGNS: Temperature is 97, blood pressure is 120/80, respiratory rate of 20, heart rate of 88. HEENT: Unremarkable. NECK: Supple. LUNGS: Have decreased breath sounds. HEART: Normal S1 and S2. ABDOMEN: Soft and nontender. LABORATORY EXAMINATION: Reveals a white count of 9.2, hemoglobin of 11, platelets of 433. Chemistries reveal a BUN of 21, creatinine of 0.5. Procalcitonin 0.28. ASSESSMENT AND PLAN: This is a 57 years old, status post Streptococcus viridans with coagulase-negative staphylococcus bacteremia, right gluteal and back cellulitis, and healthcare-associated pneumonia, currently off of antibiotics and afebrile. Patient is at risk for developing nosocomial infections and white count is now down to 9.2. We will follow with you. Daniel Torres MD
[2018-04-20] MEDS: Insulin Reg-LOW-Coverage SC SCH ×4 (10:08→22:02)
[2018-04-20] MEDS: POLYETHYLENE GLYCOL 3350 17 GM/Dose PACKET PO SCH ×2 (10:08→18:18)
[2018-04-20] MEDS: Multivitamin With Minerals Tab PO SCH (10:09)
--- NOTE | 2018-04-20 13:21 | PN ---
DATE: 04/20/2018 SUBJECTIVE: Patient is in bed. Earlier this morning seen in room 362, bed 2. Uneventful night. PHYSICAL EXAMINATION: VITAL SIGNS: Temperature 97, blood pressure 103/60, respiratory rate 18. HEENT: Unremarkable. NECK: Supple. LUNGS: Decreased breath sounds. HEART: Normal S1 and S2. ABDOMEN: Soft and nontender. LABORATORY EXAMINATION: Reveals white count is around 9.2. Chemistries are noted. Microbiology is reviewed. ASSESSMENT AND PLAN: This is a 57-year-old male who was seen earlier this morning, was admitted with Streptococcus viridans and coagulase-negative bacteremia, right gluteal and back cellulitis, healthcare-associated pneumonia, influenza A is also positive. Currently off antibiotics, afebrile. The patient is at risk for developing nosocomial infections. Review of the orders confirms the patient not to be on any antibiotics. Daniel Torres MD
--- NOTE | 2018-04-20 17:00 | CP.PCM.PN ---
<Mariano Morin - Last Filed: 04/20/18 16:57> Subjective - Date & Time of Evaluation Date of Evaluation: 04/20/18 Time of Evaluation: 16:57 - Subjective Subjective: Mariano Morin D.O. PGY1 - Internal Medicine Resident - Medicine Progress Note Pt. seen and evaluated at bedside this AM; no complaints at time of evaluation. Nursing reported no overnight events. 12 point ros negative. Objective - Vital Signs/Intake and Output Vital Signs (last 24 hours): Temp Pulse Resp BP Pulse Ox 97 F L 91 H 20 105/66 97 04/20/18 16:25 04/20/18 16:25 04/20/18 16:25 04/20/18 16:25 04/20/18 16:25 Intake and Output: 04/20/18 04/20/18 06:59 18:59 Intake Total 840 120 Balance 840 120 - Medications Medications: Current Medications Amlodipine Besylate (Norvasc) 10 mg PO DAILY [facility] Last Admin: 04/20/18 10:09 Dose: 10 mg Aspirin (Ecotrin) 81 mg PO DAILY [facility] Last Admin: 04/20/18 10:08 Dose: 81 mg Atorvastatin Calcium (Lipitor) 20 mg PO DIN [facility] Last Admin: 04/19/18 18:16 Dose: 20 mg Citalopram Hydrobromide (Celexa) 10 mg PO DAILY [facility] Last Admin: 04/20/18 10:08 Dose: 10 mg Folic Acid (Folic Acid) 1 mg PO DAILY [facility] Last Admin: 04/20/18 10:08 Dose: 1 mg Insulin Human Regular (Humulin R Low) 0 units SC ACHS [facility] PRN Reason: Protocol Last Admin: 04/20/18 15:01 Dose: Not Given Lisinopril (Zestril) 10 mg PO DAILY [facility] Last Admin: 04/20/18 10:09 Dose: 10 mg Metformin HCl (Glucophage) 500 mg PO BID [facility] Last Admin: 04/20/18 10:08 Dose: 500 mg Multivitamins/Minerals (Therapeutic-M Tab) 1 tab PO 0800 [facility] Last Admin: 04/20/18 10:09 Dose: 1 tab Ondansetron HCl (Zofran Odt) 4 mg PO Q8H PRN PRN Reason: Nausea/Vomiting Last Admin: 04/11/18 22:07 Dose: 4 mg Thiamine HCl (Vitamin B1 Tab) 100 mg PO DAILY [facility] Last Admin: 04/20/18 10:09 Dose: 100 mg - Labs Labs: 04/18/18 06:00 04/18/18 06:00 PT 12.5 SECONDS (9.4-12.5) 12/09/17 10:00 INR 1.09 (0.93-1.08) H 12/09/17 10:00 APTT 28.3 Seconds (25.1-36.5) 11/30/17 05:30 - Constitutional Appears: Well, No Acute Distress - Head Exam Head Exam: ATRAUMATIC, NORMOCEPHALIC - Eye Exam Eye Exam: EOMI, PERRL. absent: Scleral icterus - Respiratory Exam Respiratory Exam: Clear to Ausculation Bilateral. absent: Rhonchi, Wheezes, Respiratory Distress - Cardiovascular Exam Cardiovascular Exam: RRR, +S1, +S2. absent: Murmur - GI/Abdominal Exam GI & Abdominal Exam: Soft, Normal Bowel Sounds. absent: Tenderness - Extremities Exam Additional comments: No LE Edema; 2+ DP/PT BL - Neurological Exam Neurological Exam: Alert, Awake - Psychiatric Exam Psychiatric exam: Flat Affect - Skin Skin Exam: Normal Color, Warm Assessment and Plan - Assessment and Plan (Free Text) Assessment: 57yo male unknown PMHx admitted for AMS, right hip cellulitis, multifocal pneumonia, influenza A, strep viridians bacteremia with findings of stroke on MRI - acute vs. 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 Patient was treated for bacteremia with IV abx. Patient continues to refuse testing at this time. Guardianship establishment pending. Plan: Altered mental status Currently at baseline mentation which waxes and wanes Patient mentation clinically unchanged, able to answer simple questions Delirium precautions; PT - patient refusing to participate ASA/Lipitor Coag negative Staphylococcus bacteremia Last bld clx negative 12/04/17 with completion of 6 week course of antibiotics Monitor WBC, ESR, CRP weekly Echocardiogram unable to rule out vegetations, family is unavailable for consent for TAHIR Stage 1 decubitus ulcer-improving Patient refuses to get out of bed to chair Refusing PT Skin breakdown improving Continue with Q2 turns, Wound care consulted Folic acid, Thiamine Colonic mass CT Abd/Pelvis showing colonic mass and hepatic lesions GI consulted: follow recs Flex sig/colonoscopy refused by patient at this time Family unable to be contacted for consent Diabetes mellitus type 2 in non-obese Continue ISS low Metformin 500mg BID Monitor glucose Carb consistent diet HTN Lisinopril 10 daily Amlodipine 10 mg PO QD Stable, continue to monitor Affective disorder Celexa 10mg PO Daily Constipation Colace 100mg BID One dose miralax given yesterday; Pt reported 1 BM yesterday will administer x1 dose if continues w/ constipation. Hx EtOH Abuse Thiamine Folic Acid Multivitamin Prophylaxis - Patient tolerating meals, no need for GI ppx - SCDs Dispo: Patient lacks decision making capacity and is unable to comprehend his diagnosis, medical treatment, potential benefit and risk associated with and without treatment. Guardianship paperwork being processed followed by potential placement. Court scheduled for 05/05/2018 concerning guardianship Case discussed w/ attending Dr. Galo <Sixto Galo - Last Filed: 04/20/18 17:27> Objective - Vital Signs/Intake and Output Vital Signs (last 24 hours): Temp Pulse Resp BP Pulse Ox 97 F L 91 H 20 105/66 97 04/20/18 16:25 04/20/18 16:25 04/20/18 16:25 04/20/18 16:25 04/20/18 16:25 Intake and Output: 04/20/18 04/20/18 06:59 18:59 Intake Total 840 120 Balance 840 120 - Medications Medications: Current Medications Amlodipine Besylate (Norvasc) 10 mg PO DAILY [facility] Last Admin: 04/20/18 10:09 Dose: 10 mg Aspirin (Ecotrin) 81 mg PO DAILY [facility] Last Admin: 04/20/18 10:08 Dose: 81 mg Atorvastatin Calcium (Lipitor) 20 mg PO DIN [facility] Last Admin: 04/19/18 18:16 Dose: 20 mg Citalopram Hydrobromide (Celexa) 10 mg PO DAILY [facility] Last Admin: 04/20/18 10:08 Dose: 10 mg Folic Acid (Folic Acid) 1 mg PO DAILY [facility] Last Admin: 04/20/18 10:08 Dose: 1 mg Insulin Human Regular (Humulin R Low) 0 units SC [facility] PRN Reason: Protocol Last Admin: 04/20/18 15:01 Dose: Not Given Lisinopril (Zestril) 10 mg PO DAILY [facility] Last Admin: 04/20/18 10:09 Dose: 10 mg Metformin HCl (Glucophage) 500 mg PO BID [facility] Last Admin: 04/20/18 10:08 Dose: 500 mg Multivitamins/Minerals (Therapeutic-M Tab) 1 tab PO 0800 [facility] Last Admin: 04/20/18 10:09 Dose: 1 tab Ondansetron HCl (Zofran Odt) 4 mg PO Q8H PRN PRN Reason: Nausea/Vomiting Last Admin: 04/11/18 22:07 Dose: 4 mg Thiamine HCl (Vitamin B1 Tab) 100 mg PO DAILY [facility] Last Admin: 04/20/18 10:09 Dose: 100 mg - Labs Labs: 04/18/18 06:00 04/18/18 06:00 PT 12.5 SECONDS (9.4-12.5) 12/09/17 10:00 INR 1.09 (0.93-1.08) H 12/09/17 10:00 APTT 28.3 Seconds (25.1-36.5) 11/30/17 05:30 Attending/Attestation - Attestation I have personally seen and examined this patient.: Yes I have fully participated in the care of the patient.: Yes I have reviewed all pertinent clinical information, including history, physical exam and plan: Yes Notes (Text): 04/20/18 17:26 57 year old male who was admitted with altered mental status found to have CVA, bacteremia, right gluteal cellulitis and multifocal pneumonia. He is s/p antibiotics treatment. His mental status appears at his baseline. He is currently pending court appointment and awaiting for placement. Sixto Galo MD Hospitalist.
[2018-04-21] MEDS: Insulin Reg-LOW-Coverage SC SCH ×4 (09:06→21:46)
[2018-04-21] MEDS: POLYETHYLENE GLYCOL 3350 17 GM/Dose PACKET PO SCH ×2 (11:01→17:37)
[2018-04-21] MEDS: Multivitamin With Minerals Tab PO SCH (11:02)
--- NOTE | 2018-04-21 13:57 | PN ---
DATE: 04/21/2018 SUBJECTIVE: The patient is in bed, in no acute distress, nontoxic. PHYSICAL EXAMINATION: VITAL SIGNS: On exam, temperature is 97, blood pressure is 116/70, respiratory rate of 18. HEENT: Examination of HEENT is unremarkable. NECK: Supple. LUNGS: Have decreased breath sounds. HEART: Normal S1, S2. ABDOMEN: Soft, nontender. LABORATORY DATA: Laboratory examination reveals the patient to have white count of 9.2. Microbiology is reviewed. ASSESSMENT AND PLAN: A 57-year-old male who was seen earlier this morning and was initially admitted with Streptococcus viridans and coag-negative Staphylococcus bacteremia, right gluteal and back cellulitis, healthcare-associated pneumonia, influenza A. Currently, off of antibiotics, afebrile. The patient is at risk for developing nosocomial infections. Daniel Torres MD
--- NOTE | 2018-04-21 23:53 | CP.PCM.PN ---
<Mariano Morin - Last Filed: 04/21/18 23:49> Subjective - Date & Time of Evaluation Date of Evaluation: 04/21/18 Time of Evaluation: 12:00 - Subjective Subjective: Mariano Morin D.O. PGY1 - Internal Medicine Resident - Medicine Progress Note Pt. seen and evaluated at bedside this AM; no complaints at time of evaluation. Nursing reported no overnight events. 12 point ros negative. Objective - Vital Signs/Intake and Output Vital Signs (last 24 hours): Temp Pulse Resp BP Pulse Ox 98.4 F 92 H 20 120/80 99 04/21/18 18:00 04/21/18 18:00 04/21/18 18:00 04/21/18 18:00 04/21/18 18:00 Intake and Output: 04/21/18 04/22/18 18:59 06:59 Intake Total 720 840 Balance 720 840 - Medications Medications: Current Medications Amlodipine Besylate (Norvasc) 10 mg PO DAILY [facility] Last Admin: 04/21/18 11:01 Dose: 10 mg Aspirin (Ecotrin) 81 mg PO DAILY [facility] Last Admin: 04/21/18 11:01 Dose: 81 mg Atorvastatin Calcium (Lipitor) 20 mg PO DIN [facility] Last Admin: 04/21/18 17:37 Dose: 20 mg Citalopram Hydrobromide (Celexa) 10 mg PO DAILY [facility] Last Admin: 04/21/18 11:01 Dose: 10 mg Folic Acid (Folic Acid) 1 mg PO DAILY [facility] Last Admin: 04/21/18 11:01 Dose: 1 mg Insulin Human Regular (Humulin R Low) 0 units SC [facility] PRN Reason: Protocol Last Admin: 04/21/18 21:46 Dose: Not Given Lisinopril (Zestril) 10 mg PO DAILY [facility] Last Admin: 04/21/18 11:02 Dose: 10 mg Metformin HCl (Glucophage) 500 mg PO BID [facility] Last Admin: 04/21/18 17:36 Dose: 500 mg Multivitamins/Minerals (Therapeutic-M Tab) 1 tab PO 0800 [facility] Last Admin: 04/21/18 11:02 Dose: 1 tab Ondansetron HCl (Zofran Odt) 4 mg PO Q8H PRN PRN Reason: Nausea/Vomiting Last Admin: 04/11/18 22:07 Dose: 4 mg Polyethylene Glycol (Miralax) 17 gm PO BID [facility] Last Admin: 04/21/18 17:37 Dose: 17 gm Thiamine HCl (Vitamin B1 Tab) 100 mg PO DAILY [facility] Last Admin: 04/21/18 11:02 Dose: 100 mg - Labs Labs: 04/18/18 06:00 04/18/18 06:00 PT 12.5 SECONDS (9.4-12.5) 12/09/17 10:00 INR 1.09 (0.93-1.08) H 12/09/17 10:00 APTT 28.3 Seconds (25.1-36.5) 11/30/17 05:30 - Constitutional Appears: Well, Non-toxic, No Acute Distress - Head Exam Head Exam: ATRAUMATIC, NORMOCEPHALIC - Eye Exam Eye Exam: PERRL. absent: Scleral icterus - ENT Exam ENT Exam: Mucous Membranes Moist - Respiratory Exam Respiratory Exam: Clear to Ausculation Bilateral. absent: Rhonchi, Wheezes - Cardiovascular Exam Cardiovascular Exam: RRR, +S1, +S2. absent: Murmur - Extremities Exam Extremities Exam: absent: Pedal Edema Additional comments: 2+ DP/PT BL - Neurological Exam Neurological Exam: Alert, Awake Assessment and Plan - Assessment and Plan (Free Text) Assessment: 57yo male unknown PMHx admitted for AMS, right hip cellulitis, multifocal pneumonia, influenza A, strep viridians bacteremia with findings of stroke on MRI - acute vs. 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 Patient was treated for bacteremia with IV abx. Patient continues to refuse testing at this time. Guardianship establishment pending. Plan: Altered mental status Currently at baseline mentation which waxes and wanes Patient mentation clinically unchanged, able to answer simple questions Delirium precautions; PT - patient refusing to participate ASA/Lipitor Coag negative Staphylococcus bacteremia Last bld clx negative 12/04/17 with completion of 6 week course of antibiotics Monitor WBC, ESR, CRP weekly Echocardiogram unable to rule out vegetations, family is unavailable for consent for TAHIR Stage 1 decubitus ulcer-improving Patient refuses to get out of bed to chair Refusing PT Skin breakdown improving Continue with Q2 turns, Wound care consulted Folic acid, Thiamine Colonic mass CT Abd/Pelvis showing colonic mass and hepatic lesions GI consulted: follow recs Flex sig/colonoscopy refused by patient at this time Family unable to be contacted for consent Diabetes mellitus type 2 in non-obese Continue ISS low Metformin 500mg BID Monitor glucose Carb consistent diet HTN Lisinopril 10 daily Amlodipine 10 mg PO QD Stable, continue to monitor Affective disorder Celexa 10mg PO Daily Constipation Colace 100mg BID One dose miralax given yesterday; Pt reported 1 BM yesterday will administer x1 dose if continues w/ constipation. Hx EtOH Abuse Thiamine Folic Acid Multivitamin Prophylaxis - Patient tolerating meals, no need for GI ppx - SCDs Dispo: Patient lacks decision making capacity and is unable to comprehend his diagnosis, medical treatment, potential benefit and risk associated with and without treatment. Guardianship paperwork being processed followed by potential placement. Court scheduled for 05/05/2018 concerning guardianship Case discussed w/ attending Dr. Iraj Morin DO - PGY1 RESIDENT - [phone] <Sixto Galo - Last Filed: 04/22/18 06:56> Objective - Vital Signs/Intake and Output Vital Signs (last 24 hours): Temp Pulse Resp BP Pulse Ox 98.4 F 92 H 20 120/80 99 04/21/18 18:00 04/21/18 18:00 04/21/18 18:00 04/21/18 18:00 04/21/18 18:00 Intake and Output: 04/21/18 04/22/18 18:59 06:59 Intake Total 720 840 Balance 720 840 - Medications Medications: Current Medications Amlodipine Besylate (Norvasc) 10 mg PO DAILY [facility] Last Admin: 04/21/18 11:01 Dose: 10 mg Aspirin (Ecotrin) 81 mg PO DAILY [facility] Last Admin: 04/21/18 11:01 Dose: 81 mg Atorvastatin Calcium (Lipitor) 20 mg PO DIN [facility] Last Admin: 04/21/18 17:37 Dose: 20 mg Citalopram Hydrobromide (Celexa) 10 mg PO DAILY [facility] Last Admin: 04/21/18 11:01 Dose: 10 mg Folic Acid (Folic Acid) 1 mg PO DAILY [facility] Last Admin: 04/21/18 11:01 Dose: 1 mg Insulin Human Regular (Humulin R Low) 0 units SC [facility] PRN Reason: Protocol Last Admin: 04/21/18 21:46 Dose: Not Given Lisinopril (Zestril) 10 mg PO DAILY [facility] Last Admin: 04/21/18 11:02 Dose: 10 mg Metformin HCl (Glucophage) 500 mg PO BID [facility] Last Admin: 04/21/18 17:36 Dose: 500 mg Multivitamins/Minerals (Therapeutic-M Tab) 1 tab PO 0800 [facility] Last Admin: 04/21/18 11:02 Dose: 1 tab Ondansetron HCl (Zofran Odt) 4 mg PO Q8H PRN PRN Reason: Nausea/Vomiting Last Admin: 04/11/18 22:07 Dose: 4 mg Polyethylene Glycol (Miralax) 17 gm PO BID [facility] Last Admin: 04/21/18 17:37 Dose: 17 gm Thiamine HCl (Vitamin B1 Tab) 100 mg PO DAILY [facility] Last Admin: 04/21/18 11:02 Dose: 100 mg - Labs Labs: 04/18/18 06:00 04/18/18 06:00 PT 12.5 SECONDS (9.4-12.5) 12/09/17 10:00 INR 1.09 (0.93-1.08) H 12/09/17 10:00 APTT 28.3 Seconds (25.1-36.5) 11/30/17 05:30 Attending/Attestation - Attestation I have personally seen and examined this patient.: Yes I have fully participated in the care of the patient.: Yes I have reviewed all pertinent clinical information, including history, physical exam and plan: Yes Notes (Text): 04/21/18 57 year old male who was admitted with altered mental status found to have CVA, bacteremia, right gluteal cellulitis and multifocal pneumonia. He is s/p antibiotics treatment. His mental status appears at his baseline. He appears comfortable in bed without any new complaints. He is currently pending court appointment on 05/05 and awaiting for placement. Sixto Galo MD Hospitalist.
[2018-04-22] MEDS: Insulin Reg-LOW-Coverage SC SCH ×4 (09:28→21:30)
[2018-04-22] MEDS: POLYETHYLENE GLYCOL 3350 17 GM/Dose PACKET PO SCH ×2 (09:30→17:19)
[2018-04-22] MEDS: Multivitamin With Minerals Tab PO SCH (09:31)
--- NOTE | 2018-04-22 19:23 | CP.PCM.PN ---
<Mariano Morin - Last Filed: 04/22/18 20:12> Subjective - Date & Time of Evaluation Date of Evaluation: 04/22/18 Time of Evaluation: 19:20 - Subjective Subjective: Mariano Morin D.O. PGY1 - Internal Medicine Resident - Medicine Progress Note Pt. seen and evaluated at bedside this AM, status unchaged. No complaints made at time of evaluation; no issues or concerns made by nursing. No overnight events. Objective - Vital Signs/Intake and Output Vital Signs (last 24 hours): Temp Pulse Resp BP Pulse Ox 97.5 F L 90 20 121/73 96 04/22/18 07:46 04/22/18 09:31 04/22/18 07:46 04/22/18 09:31 04/22/18 07:46 Intake and Output: 04/22/18 04/23/18 18:59 06:59 Intake Total 960 Balance 960 - Medications Medications: Current Medications Amlodipine Besylate (Norvasc) 10 mg PO DAILY [facility] Last Admin: 04/22/18 09:30 Dose: 10 mg Aspirin (Ecotrin) 81 mg PO DAILY [facility] Last Admin: 04/22/18 09:27 Dose: 81 mg Atorvastatin Calcium (Lipitor) 20 mg PO DIN [facility] Last Admin: 04/22/18 17:18 Dose: 20 mg Citalopram Hydrobromide (Celexa) 10 mg PO DAILY [facility] Last Admin: 04/22/18 09:27 Dose: 10 mg Folic Acid (Folic Acid) 1 mg PO DAILY [facility] Last Admin: 04/22/18 09:28 Dose: 1 mg Insulin Human Regular (Humulin R Low) 0 units SC ACHS [facility] PRN Reason: Protocol Last Admin: 04/22/18 17:18 Dose: Not Given Lisinopril (Zestril) 10 mg PO DAILY [facility] Last Admin: 04/22/18 09:31 Dose: 10 mg Metformin HCl (Glucophage) 500 mg PO BID [facility] Last Admin: 04/22/18 17:18 Dose: 500 mg Multivitamins/Minerals (Therapeutic-M Tab) 1 tab PO 0800 [facility] Last Admin: 04/22/18 09:31 Dose: 1 tab Ondansetron HCl (Zofran Odt) 4 mg PO Q8H PRN PRN Reason: Nausea/Vomiting Last Admin: 04/11/18 22:07 Dose: 4 mg Polyethylene Glycol (Miralax) 17 gm PO BID [facility] Last Admin: 04/22/18 17:19 Dose: 17 gm Thiamine HCl (Vitamin B1 Tab) 100 mg PO DAILY [facility] Last Admin: 04/22/18 09:31 Dose: 100 mg - Labs Labs: 04/18/18 06:00 04/18/18 06:00 PT 12.5 SECONDS (9.4-12.5) 12/09/17 10:00 INR 1.09 (0.93-1.08) H 12/09/17 10:00 APTT 28.3 Seconds (25.1-36.5) 11/30/17 05:30 - Constitutional Appears: Well, Non-toxic, No Acute Distress - Head Exam Head Exam: ATRAUMATIC, NORMOCEPHALIC - Eye Exam Eye Exam: EOMI, PERRL. absent: Scleral icterus - ENT Exam ENT Exam: Mucous Membranes Moist - Respiratory Exam Respiratory Exam: Clear to Ausculation Bilateral, NORMAL BREATHING PATTERN. absent: Rales, Rhonchi, Wheezes - Cardiovascular Exam Cardiovascular Exam: RRR, +S1, +S2 - GI/Abdominal Exam GI & Abdominal Exam: Soft, Normal Bowel Sounds. absent: Tenderness - Extremities Exam Extremities Exam: absent: Pedal Edema Additional comments: 2+ DP/PT BL - Back Exam Back Exam: absent: CVA tenderness (L), CVA tenderness (R) - Neurological Exam Neurological Exam: Alert, Awake - Psychiatric Exam Psychiatric exam: Flat Affect - Skin Skin Exam: Dry, Intact, Warm Assessment and Plan - Assessment and Plan (Free Text) Assessment: 57yo male unknown PMHx admitted for AMS, right hip cellulitis, multifocal pneumonia, influenza A, strep viridians bacteremia with findings of stroke on MRI - acute vs. 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 Patient was treated for bacteremia with IV abx. Patient continues to refuse testing at this time. Guardianship establishment pending. Plan: Assessment: 57yo male unknown PMHx admitted for AMS, right hip cellulitis, multifocal pneumonia, influenza A, strep viridians bacteremia with findings of stroke on MRI - acute vs. 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 Patient was treated for bacteremia with IV abx. Patient continues to refuse testing at this time. Guardianship establishment pending. Plan: Altered mental status Currently at baseline mentation which waxes and wanes Patient mentation clinically unchanged, able to answer simple questions Delirium precautions; PT - patient refusing to participate ASA/Lipitor Coag negative Staphylococcus bacteremia Last bld clx negative 12/04/17 with completion of 6 week course of antibiotics Monitor WBC, ESR, CRP weekly Echocardiogram unable to rule out vegetations, family is unavailable for consent for TAHIR Stage 1 decubitus ulcer-improving Patient refuses to get out of bed to chair Refusing PT Skin breakdown improving Continue with Q2 turns, Wound care consulted Folic acid, Thiamine Colonic mass CT Abd/Pelvis showing colonic mass and hepatic lesions GI consulted: follow recs Flex sig/colonoscopy refused by patient at this time Family unable to be contacted for consent Diabetes mellitus type 2 in non-obese Continue ISS low Metformin 500mg BID Monitor glucose Carb consistent diet HTN Lisinopril 10 daily Amlodipine 10 mg PO QD Stable, continue to monitor Affective disorder Celexa 10mg PO Daily Constipation Colace 100mg BID One dose miralax given yesterday; Pt reported 1 BM yesterday will administer x1 dose if continues w/ constipation. Hx EtOH Abuse Thiamine Folic Acid Multivitamin Prophylaxis - Patient tolerating meals, no need for GI ppx - SCDs Dispo: Patient lacks decision making capacity and is unable to comprehend his diagnosis, medical treatment, potential benefit and risk associated with and without treatment. Guardianship paperwork being processed followed by potential placement. Court scheduled for 05/05/2018 concerning guardianship Case discussed w/ attending Dr. Iraj Morin DO - PGY1 IM RESIDENT - [phone] <Sixto Galo - Last Filed: 04/23/18 06:58> Objective - Vital Signs/Intake and Output Vital Signs (last 24 hours): Temp Pulse Resp BP Pulse Ox 97.8 F 90 20 120/76 97 04/22/18 18:00 04/22/18 18:00 04/22/18 18:00 04/22/18 18:00 04/22/18 18:00 Intake and Output: 04/22/18 04/23/18 18:59 06:59 Intake Total 960 780 Balance 960 780 - Medications Medications: Current Medications Amlodipine Besylate (Norvasc) 10 mg PO DAILY [facility] Last Admin: 04/22/18 09:30 Dose: 10 mg Aspirin (Ecotrin) 81 mg PO DAILY [facility] Last Admin: 04/22/18 09:27 Dose: 81 mg Atorvastatin Calcium (Lipitor) 20 mg PO DIN [facility] Last Admin: 04/22/18 17:18 Dose: 20 mg Citalopram Hydrobromide (Celexa) 10 mg PO DAILY [facility] Last Admin: 04/22/18 09:27 Dose: 10 mg Folic Acid (Folic Acid) 1 mg PO DAILY [facility] Last Admin: 04/22/18 09:28 Dose: 1 mg Insulin Human Regular (Humulin R Low) 0 units SC ACHS [facility] PRN Reason: Protocol Last Admin: 04/22/18 21:30 Dose: Not Given Lisinopril (Zestril) 10 mg PO DAILY [facility] Last Admin: 04/22/18 09:31 Dose: 10 mg Metformin HCl (Glucophage) 500 mg PO BID [facility] Last Admin: 04/22/18 17:18 Dose: 500 mg Multivitamins/Minerals (Therapeutic-M Tab) 1 tab PO 0800 [facility] Last Admin: 04/22/18 09:31 Dose: 1 tab Polyethylene Glycol (Miralax) 17 gm PO BID [facility] Last Admin: 04/22/18 17:19 Dose: 17 gm Thiamine HCl (Vitamin B1 Tab) 100 mg PO DAILY [facility] Last Admin: 04/22/18 09:31 Dose: 100 mg - Labs Labs: 04/18/18 06:00 04/18/18 06:00 PT 12.5 SECONDS (9.4-12.5) 12/09/17 10:00 INR 1.09 (0.93-1.08) H 12/09/17 10:00 APTT 28.3 Seconds (25.1-36.5) 11/30/17 05:30 Attending/Attestation - Attestation I have personally seen and examined this patient.: Yes I have fully participated in the care of the patient.: Yes I have reviewed all pertinent clinical information, including history, physical exam and plan: Yes Notes (Text): 04/22/18 57 year old male who was admitted with altered mental status found to have CVA, bacteremia, right gluteal cellulitis and multifocal pneumonia. He is s/p antibiotics treatment. His mental status appears at his baseline. No events overnight. No new complaints this morning. He is currently pending court appointment on 05/05 and awaiting for placement. Sixto Galo MD Hospitalist.
--- NOTE | 2018-04-23 01:22 | PN ---
DATE: 04/22/2018 SUBJECTIVE: Patient was seen in bed. PHYSICAL EXAMINATION: VITAL SIGNS: Temperature of 98, blood pressure IS 120/70, respiratory rate 16. HEENT: Unremarkable. NECK: Supple. LUNGS: Have decreased breath sounds. HEART: Normal S1 and S2. ABDOMEN: Soft. LABORATORY DATA: Is noted. ASSESSMENT AND PLAN: This is a 57-year-old male, who was seen earlier this morning, initially admitted with Streptococcus viridans and coagulase-negative Staphylococcus bacteremia, right gluteal and back cellulitis, developed healthcare-associated pneumonia, also had influenza A, currently off of antibiotics, afebrile. The patient is at risk for developing nosocomial pneumonia. Daniel Torres MD
[2018-04-23] MEDS: Insulin Reg-LOW-Coverage SC SCH ×4 (10:04→21:54)
[2018-04-23] MEDS: POLYETHYLENE GLYCOL 3350 17 GM/Dose PACKET PO SCH ×2 (10:05→17:15)
[2018-04-23] MEDS: Multivitamin With Minerals Tab PO SCH (10:13)
--- NOTE | 2018-04-23 10:35 | PN ---
DATE: 04/23/2018 SUBJECTIVE: The patient is seen earlier today. No fevers and chills. PHYSICAL EXAMINATION: VITAL SIGNS: On exam, temperature is 97, blood pressure is 120/60, respiratory rate of 18. HEENT: Examination of HEENT is unremarkable. NECK: Supple. LUNGS: Have decreased breath sounds. HEART: Normal S1, S2. ABDOMEN: Soft, nontender. LABORATORY DATA: Laboratory examination reveals a white count of 9.2, hemoglobin of 11, platelets of 433. Chemistries reveals creatinine is 0.5. ASSESSMENT AND PLAN: A 57-year-old male who was seen early this morning in room 362, bed 2. Initially admitted with Streptococcus viridans and coag-negative bacteremia, right gluteal and back cellulitis. Currently, off of antibiotics, afebrile. He is at risk for developing nosocomial infections. Daniel Torres MD
--- NOTE | 2018-04-23 15:36 | CP.PCM.PN ---
<Jorge Luis Lopez - Last Filed: 04/23/18 15:32> Subjective - Date & Time of Evaluation Date of Evaluation: 04/23/18 Time of Evaluation: 15:33 - Subjective Subjective: Patient seen and examined at bedside in no acute distress. Offers no complaints over night. Denies nausea, vomiting, diarrhea, chest pain, shortness of breath, abdominal pain, fevers, chills, headache, cough, constipation diarrhea. Objective - Vital Signs/Intake and Output Vital Signs (last 24 hours): Temp Pulse Resp BP Pulse Ox 97.5 F L 79 20 137/89 98 04/23/18 07:30 04/23/18 10:13 04/23/18 07:30 04/23/18 10:13 04/23/18 07:30 Intake and Output: 04/23/18 04/23/18 06:59 18:59 Intake Total 780 Balance 780 - Medications Medications: Current Medications Amlodipine Besylate (Norvasc) 10 mg PO DAILY [facility] Last Admin: 04/23/18 10:12 Dose: 10 mg Aspirin (Ecotrin) 81 mg PO DAILY [facility] Last Admin: 04/23/18 10:03 Dose: 81 mg Atorvastatin Calcium (Lipitor) 20 mg PO DIN [facility] Last Admin: 04/22/18 17:18 Dose: 20 mg Citalopram Hydrobromide (Celexa) 10 mg PO DAILY [facility] Last Admin: 04/23/18 10:03 Dose: 10 mg Folic Acid (Folic Acid) 1 mg PO DAILY [facility] Last Admin: 04/23/18 10:04 Dose: 1 mg Insulin Human Regular (Humulin R Low) 0 units SC [facility] PRN Reason: Protocol Last Admin: 04/23/18 14:37 Dose: Not Given Lisinopril (Zestril) 10 mg PO DAILY [facility] Last Admin: 04/23/18 10:13 Dose: 10 mg Metformin HCl (Glucophage) 500 mg PO BID [facility] Last Admin: 04/23/18 10:04 Dose: 500 mg Multivitamins/Minerals (Therapeutic-M Tab) 1 tab PO 0800 [facility] Last Admin: 04/23/18 10:13 Dose: 1 tab Polyethylene Glycol (Miralax) 17 gm PO BID [facility] Last Admin: 04/23/18 10:05 Dose: 17 gm Thiamine HCl (Vitamin B1 Tab) 100 mg PO DAILY [facility] Last Admin: 04/23/18 10:13 Dose: 100 mg - Labs Labs: 04/18/18 06:00 04/18/18 06:00 PT 12.5 SECONDS (9.4-12.5) 12/09/17 10:00 INR 1.09 (0.93-1.08) H 12/09/17 10:00 APTT 28.3 Seconds (25.1-36.5) 11/30/17 05:30 - Constitutional Appears: Non-toxic, No Acute Distress - Head Exam Head Exam: ATRAUMATIC, NORMAL INSPECTION, NORMOCEPHALIC - Eye Exam Eye Exam: EOMI, Normal appearance - ENT Exam ENT Exam: Mucous Membranes Moist, Normal Exam - Respiratory Exam Respiratory Exam: Clear to Ausculation Bilateral, NORMAL BREATHING PATTERN. absent: Rhonchi, Wheezes - Cardiovascular Exam Cardiovascular Exam: REGULAR RHYTHM, +S1, +S2 - GI/Abdominal Exam GI & Abdominal Exam: Soft, Normal Bowel Sounds - Extremities Exam Extremities Exam: Normal Inspection - Back Exam Back Exam: NORMAL INSPECTION - Neurological Exam Neurological Exam: Alert, Awake, Oriented x3 - Psychiatric Exam Psychiatric exam: Normal Affect, Normal Mood - Skin Skin Exam: Intact, Normal Color, Warm Assessment and Plan - Assessment and Plan (Free Text) Assessment: Assessment: 57yo male unknown PMHx admitted for AMS, right hip cellulitis, multifocal pneumonia, influenza A, strep viridians bacteremia with findings of stroke on MRI - acute vs. 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 Patient was treated for bacteremia with IV abx. Patient continues to refuse testing at this time. Guardianship establishment pending. Plan: Altered mental status Currently at baseline mentation which waxes and wanes Patient mentation clinically unchanged, able to answer simple questions Delirium precautions; PT - patient refusing to participate ASA/Lipitor Coag negative Staphylococcus bacteremia Last bld clx negative 12/04/17 with completion of 6 week course of antibiotics Monitor WBC, ESR, CRP weekly Echocardiogram unable to rule out vegetations, family is unavailable for consent for TAHIR Stage 1 decubitus ulcer-improving Patient refuses to get out of bed to chair Refusing PT Skin breakdown improving Continue with Q2 turns, Wound care consulted Folic acid, Thiamine Colonic mass CT Abd/Pelvis showing colonic mass and hepatic lesions GI consulted: follow recs Flex sig/colonoscopy refused by patient at this time Family unable to be contacted for consent Diabetes mellitus type 2 in non-obese Continue ISS low Metformin 500mg BID Monitor glucose Carb consistent diet HTN Lisinopril 10 daily Amlodipine 10 mg PO QD Stable, continue to monitor Affective disorder Celexa 10mg PO Daily Constipation Colace 100mg BID Hx EtOH Abuse Thiamine Folic Acid Multivitamin Prophylaxis - Patient tolerating meals, no need for GI ppx - SCDs Dispo: Patient lacks decision making capacity and is unable to comprehend his diagnosis, medical treatment, potential benefit and risk associated with and without treatment. Guardianship paperwork being processed followed by potential placement. Court scheduled for 05/05/2018 concerning guardianship Case discussed w/ attending Dr. Galo <Sixto Galo - Last Filed: 04/23/18 16:05> Objective - Vital Signs/Intake and Output Vital Signs (last 24 hours): Temp Pulse Resp BP Pulse Ox 97.5 F L 79 20 137/89 98 04/23/18 07:30 04/23/18 10:13 04/23/18 07:30 04/23/18 10:13 04/23/18 07:30 Intake and Output: 04/23/18 04/23/18 06:59 18:59 Intake Total 780 Balance 780 - Medications Medications: Current Medications Amlodipine Besylate (Norvasc) 10 mg PO DAILY [facility] Last Admin: 04/23/18 10:12 Dose: 10 mg Aspirin (Ecotrin) 81 mg PO DAILY [facility] Last Admin: 04/23/18 10:03 Dose: 81 mg Atorvastatin Calcium (Lipitor) 20 mg PO DIN [facility] Last Admin: 04/22/18 17:18 Dose: 20 mg Citalopram Hydrobromide (Celexa) 10 mg PO DAILY [facility] Last Admin: 04/23/18 10:03 Dose: 10 mg Folic Acid (Folic Acid) 1 mg PO DAILY [facility] Last Admin: 04/23/18 10:04 Dose: 1 mg Insulin Human Regular (Humulin R Low) 0 units SC [facility] PRN Reason: Protocol Last Admin: 04/23/18 14:37 Dose: Not Given Lisinopril (Zestril) 10 mg PO DAILY [facility] Last Admin: 04/23/18 10:13 Dose: 10 mg Metformin HCl (Glucophage) 500 mg PO BID [facility] Last Admin: 04/23/18 10:04 Dose: 500 mg Multivitamins/Minerals (Therapeutic-M Tab) 1 tab PO 0800 [facility] Last Admin: 04/23/18 10:13 Dose: 1 tab Polyethylene Glycol (Miralax) 17 gm PO BID [facility] Last Admin: 04/23/18 10:05 Dose: 17 gm Thiamine HCl (Vitamin B1 Tab) 100 mg PO DAILY [facility] Last Admin: 04/23/18 10:13 Dose: 100 mg - Labs Labs: 04/18/18 06:00 04/18/18 06:00 PT 12.5 SECONDS (9.4-12.5) 12/09/17 10:00 INR 1.09 (0.93-1.08) H 12/09/17 10:00 APTT 28.3 Seconds (25.1-36.5) 11/30/17 05:30 Attending/Attestation - Attestation I have personally seen and examined this patient.: Yes I have fully participated in the care of the patient.: Yes I have reviewed all pertinent clinical information, including history, physical exam and plan: Yes Notes (Text): 04/23/18 15:59 57 year old male who was admitted with altered mental status found to have CVA, bacteremia, right gluteal cellulitis and multifocal pneumonia. He is s/p antibiotics treatment. His mental status appears at his baseline. He is currently pending court appointment on 05/05. Awaiting for placement. Sixto Galo MD Hospitalist.
[2018-04-24] MEDS: Insulin Reg-LOW-Coverage SC SCH ×4 (08:34→22:49)
[2018-04-24] MEDS: Multivitamin With Minerals Tab PO SCH (08:41)
[2018-04-24] MEDS: POLYETHYLENE GLYCOL 3350 17 GM/Dose PACKET PO SCH ×2 (11:14→17:44)
--- NOTE | 2018-04-24 12:54 | PN ---
DATE: 04/24/2018 PHYSICAL EXAMINATION: VITAL SIGNS: On exam, temperature is 98, blood pressure is /70, respiratory rate of 16. HEENT: Examination of HEENT is unremarkable. NECK: Supple. LUNGS: Have decreased breath sounds. HEART: Normal S1, S2. ABDOMEN: Soft. LABORATORY DATA: Laboratory examination reveals a white count of 9.2, hemoglobin 11, platelets of 433. Creatinine is 0.5 and vancomycin trough is 10 from November. ASSESSMENT AND PLAN: A 57-year-old male who was seen earlier this morning in [facility], bed 2, who was initially admitted with Streptococcus viridans and coagulase-negative bacteremia, right gluteal and back cellulitis, has developed a healthcare-associated pneumonia and influenza. Currently, off of antibiotics, afebrile, however, the patient is at risk for developing nosocomial infections. Daniel Torres MD
--- NOTE | 2018-04-24 14:59 | CP.PCM.PN ---
<Jorge Luis Lopez - Last Filed: 04/24/18 14:55> Subjective - Date & Time of Evaluation Date of Evaluation: 04/24/18 Time of Evaluation: 06:30 - Subjective Subjective: Patient seen and examined at bedside offers no complaints. States he has had breakfast, is making bowel movements. Denies shortness of breath, chest pain, abdominal pain, nausea, vomiting, diarrhea, fevers, chills, headache, cough. Objective - Vital Signs/Intake and Output Vital Signs (last 24 hours): Temp Pulse Resp BP Pulse Ox 97.5 F L 90 20 117/68 98 04/24/18 06:00 04/24/18 11:21 04/24/18 06:00 04/24/18 14:16 04/24/18 06:00 Intake and Output: 04/24/18 04/24/18 06:59 18:59 Intake Total 660 Balance 660 - Medications Medications: Current Medications Amlodipine Besylate (Norvasc) 10 mg PO DAILY [facility] Last Admin: 04/24/18 14:16 Dose: 10 mg Aspirin (Ecotrin) 81 mg PO DAILY [facility] Last Admin: 04/24/18 11:21 Dose: 81 mg Atorvastatin Calcium (Lipitor) 20 mg PO DIN [facility] Last Admin: 04/23/18 17:15 Dose: 20 mg Citalopram Hydrobromide (Celexa) 10 mg PO DAILY [facility] Last Admin: 04/24/18 11:21 Dose: 10 mg Folic Acid (Folic Acid) 1 mg PO DAILY [facility] Last Admin: 04/24/18 11:21 Dose: 1 mg Insulin Human Regular (Humulin R Low) 0 units SC [facility] PRN Reason: Protocol Last Admin: 04/24/18 14:16 Dose: Not Given Lisinopril (Zestril) 10 mg PO DAILY [facility] Last Admin: 04/24/18 11:21 Dose: 10 mg Metformin HCl (Glucophage) 500 mg PO BID [facility] Last Admin: 04/24/18 11:21 Dose: 500 mg Multivitamins/Minerals (Therapeutic-M Tab) 1 tab PO 0800 [facility] Last Admin: 04/24/18 08:41 Dose: 1 tab Polyethylene Glycol (Miralax) 17 gm PO BID [facility] Last Admin: 04/24/18 11:14 Dose: Not Given Thiamine HCl (Vitamin B1 Tab) 100 mg PO DAILY [facility] Last Admin: 04/24/18 11:21 Dose: 100 mg - Labs Labs: 04/18/18 06:00 04/18/18 06:00 PT 12.5 SECONDS (9.4-12.5) 12/09/17 10:00 INR 1.09 (0.93-1.08) H 12/09/17 10:00 APTT 28.3 Seconds (25.1-36.5) 11/30/17 05:30 - Head Exam Head Exam: ATRAUMATIC, NORMAL INSPECTION, NORMOCEPHALIC - Eye Exam Eye Exam: EOMI, Normal appearance - ENT Exam ENT Exam: Mucous Membranes Moist, Normal Exam - Respiratory Exam Respiratory Exam: Clear to Ausculation Bilateral, NORMAL BREATHING PATTERN. absent: Wheezes - Cardiovascular Exam Cardiovascular Exam: REGULAR RHYTHM, +S1, +S2 - GI/Abdominal Exam GI & Abdominal Exam: Soft, Normal Bowel Sounds - Extremities Exam Extremities Exam: Full ROM, Normal Inspection - Back Exam Back Exam: NORMAL INSPECTION - Neurological Exam Neurological Exam: Alert, Awake, Oriented x3 - Psychiatric Exam Psychiatric exam: Normal Affect, Normal Mood - Skin Skin Exam: Normal Color, Warm Assessment and Plan - Assessment and Plan (Free Text) Assessment: 57yo male unknown PMHx admitted for AMS, right hip cellulitis, multifocal pneumonia, influenza A, strep viridians bacteremia with findings of stroke on MRI - acute vs. 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 Patient was treated for bacteremia with IV abx. Patient continues to refuse testing at this time. Guardianship establishment pending. Plan: Altered mental status Currently at baseline mentation which waxes and wanes Patient mentation clinically unchanged, able to answer simple questions Delirium precautions; PT -patient refusing to participate ASA/Lipitor Coag negative Staphylococcus bacteremia Last bld clx negative 12/04/17 with completion of 6 week course of antibiotics Monitor WBC, ESR, CRP weekly Echocardiogram unable to rule out vegetations, family is unavailable for consent for TAHIR Stage 1 decubitus ulcer-improving Patient refuses to get out of bed to chair Refusing PT Skin breakdown improving Continue with Q2 turns, Wound care consulted Folic acid, Thiamine Colonic mass CT Abd/Pelvis showing colonic mass and hepatic lesions GI consulted: follow recs Flex sig/colonoscopy refused by patient at this time Family unable to be contacted for consent Diabetes mellitus type 2 in non-obese Continue ISS low Metformin 500mg BID Monitor glucose Carb consistent diet HTN Lisinopril 10 daily Amlodipine 10 mg PO QD Stable, continue to monitor Affective disorder Celexa 10mg PO Daily Constipation Colace 100mg BID Hx EtOH Abuse Thiamine Folic Acid Multivitamin Prophylaxis - Patient tolerating meals, no need for GI ppx - SCDs Dispo: Patient lacks decision making capacity and is unable to comprehend his diagnosis, medical treatment, potential benefit and risk associated with and without treatment. Guardianship paperwork being processed followed by potential placement. Court scheduled for 05/05/2018 concerning guardianship Case discussed w/ attending Dr. Galo <Sixto Galo - Last Filed: 04/24/18 15:09> Objective - Vital Signs/Intake and Output Vital Signs (last 24 hours): Temp Pulse Resp BP Pulse Ox 97.5 F L 90 20 117/68 98 04/24/18 06:00 04/24/18 11:21 04/24/18 06:00 04/24/18 14:16 04/24/18 06:00 Intake and Output: 04/24/18 04/24/18 06:59 18:59 Intake Total 660 Balance 660 - Medications Medications: Current Medications Amlodipine Besylate (Norvasc) 10 mg PO DAILY [facility] Last Admin: 04/24/18 14:16 Dose: 10 mg Aspirin (Ecotrin) 81 mg PO DAILY [facility] Last Admin: 04/24/18 11:21 Dose: 81 mg Atorvastatin Calcium (Lipitor) 20 mg PO DIN [facility] Last Admin: 04/23/18 17:15 Dose: 20 mg Citalopram Hydrobromide (Celexa) 10 mg PO DAILY [facility] Last Admin: 04/24/18 11:21 Dose: 10 mg Folic Acid (Folic Acid) 1 mg PO DAILY [facility] Last Admin: 04/24/18 11:21 Dose: 1 mg Insulin Human Regular (Humulin R Low) 0 units SC [facility] PRN Reason: Protocol Last Admin: 04/24/18 14:16 Dose: Not Given Lisinopril (Zestril) 10 mg PO DAILY [facility] Last Admin: 04/24/18 11:21 Dose: 10 mg Metformin HCl (Glucophage) 500 mg PO BID [facility] Last Admin: 04/24/18 11:21 Dose: 500 mg Multivitamins/Minerals (Therapeutic-M Tab) 1 tab PO 0800 [facility] Last Admin: 04/24/18 08:41 Dose: 1 tab Polyethylene Glycol (Miralax) 17 gm PO BID [facility] Last Admin: 04/24/18 11:14 Dose: Not Given Thiamine HCl (Vitamin B1 Tab) 100 mg PO DAILY [facility] Last Admin: 04/24/18 11:21 Dose: 100 mg - Labs Labs: 04/18/18 06:00 04/18/18 06:00 PT 12.5 SECONDS (9.4-12.5) 12/09/17 10:00 INR 1.09 (0.93-1.08) H 12/09/17 10:00 APTT 28.3 Seconds (25.1-36.5) 11/30/17 05:30 Attending/Attestation - Attestation I have personally seen and examined this patient.: Yes I have fully participated in the care of the patient.: Yes I have reviewed all pertinent clinical information, including history, physical exam and plan: Yes Notes (Text): 04/24/18 15:08 57 year old male who was admitted with altered mental status found to have CVA, bacteremia, right gluteal cellulitis and multifocal pneumonia. He is s/p antibiotics treatment. His mental status appears at his baseline. No acute events reported overnight. He appears comfortable watching TV without any complaints. He is currently pending court appointment on 05/05. Awaiting for placement. Sixto Galo MD Hospitalist.
[2018-04-25 06:37] LABS: BASO # 0.04 K/mm3 (0.0-2.0); BASO % 0.4 % (0.0-3.0); EOS # 0.2 (0.0-0.7); EOS % 1.7 % (1.5-5.0); GRAN # 5.92 (1.4-6.5); GRAN % 58.7 % (50.0-68.0); HEMOGLOBIN 9.9 g/dL (14.0-18.0); LYMPH # 3.2 (1.2-3.4); LYMPH % 31.7 % (22.0-35.0); MEAN CELL VOLUME 79.7 fl (80.0-105.0); MEAN CORPUSCULAR HEMOGLOBIN 25.8 pg (25.0-35.0); MEAN CORPUSCULAR HGB CONC 32.4 g/dl (31.0-37.0); MEAN PLATELET VOLUME 9.2 fl (7.0-11.0); MONO # 0.8 (0.1-0.6); MONO % 7.5 % (1.0-6.0); RBC 3.84 10^6/uL (3.5-6.1); RED CELL DISTRIBUTION WIDTH 14.7 % (11.5-14.5); WHITE BLOOD COUNT 10.1 10^3/ul (4.5-11.0)
[2018-04-25 06:57] LABS: ALB/GLOB RATIO 1.2 (1.1-1.8); ALBUMIN 3.6 g/dL (3.0-4.8); ALT/SGPT 33 U/L (7-56); AST/SGOT 39 U/L (17-59); BLOOD UREA NITROGEN 18 mg/dL (7-21); CALCIUM 9.1 mg/dL (8.4-10.5); GFR NON-AFRICAN AMERICAN > 60
--- NOTE | 2018-04-25 07:45 | CP.PCM.PN ---
<Elsy Sanchez - Last Filed: 04/25/18 16:21> Subjective - Date & Time of Evaluation Date of Evaluation: 04/25/18 Time of Evaluation: 07:45 - Subjective Subjective: ELSY SANCHEZ DO - PGY1 IM CLINICAL PSYCHOLOGIST - MEDICINE PROGRESS NOTE Pt was seen this AM w/ no complaints at time of exam. Nursing reported no issue overnight. Patient stated he had bowel movement this AM. Denies DIXON, BV, CP, SOB, COUGH, PALP, ABD PAIN, NVDC. Objective - Vital Signs/Intake and Output Vital Signs (last 24 hours): Temp Pulse Resp BP Pulse Ox 98.6 F 88 20 110/60 97 04/24/18 16:04 04/24/18 16:04 04/24/18 16:04 04/24/18 16:04 04/24/18 16:04 Intake and Output: 04/25/18 04/25/18 06:59 18:59 Intake Total 780 Balance 780 - Medications Medications: Current Medications Amlodipine Besylate (Norvasc) 10 mg PO DAILY [facility] Last Admin: 04/24/18 14:16 Dose: 10 mg Aspirin (Ecotrin) 81 mg PO DAILY [facility] Last Admin: 04/24/18 11:21 Dose: 81 mg Atorvastatin Calcium (Lipitor) 20 mg PO DIN [facility] Last Admin: 04/24/18 17:43 Dose: 20 mg Citalopram Hydrobromide (Celexa) 10 mg PO DAILY [facility] Last Admin: 04/24/18 11:21 Dose: 10 mg Folic Acid (Folic Acid) 1 mg PO DAILY [facility] Last Admin: 04/24/18 11:21 Dose: 1 mg Insulin Human Regular (Humulin R Low) 0 units SC [facility] PRN Reason: Protocol Last Admin: 04/24/18 22:49 Dose: Not Given Lisinopril (Zestril) 10 mg PO DAILY [facility] Last Admin: 04/24/18 11:21 Dose: 10 mg Metformin HCl (Glucophage) 500 mg PO BID [facility] Last Admin: 04/24/18 17:43 Dose: 500 mg Multivitamins/Minerals (Therapeutic-M Tab) 1 tab PO 0800 [facility] Last Admin: 04/24/18 08:41 Dose: 1 tab Polyethylene Glycol (Miralax) 17 gm PO BID [facility] Last Admin: 04/24/18 17:44 Dose: 17 gm Thiamine HCl (Vitamin B1 Tab) 100 mg PO DAILY [facility] Last Admin: 04/24/18 11:21 Dose: 100 mg - Labs Labs: 04/25/18 06:00 04/25/18 06:00 PT 12.5 SECONDS (9.4-12.5) 12/09/17 10:00 INR 1.09 (0.93-1.08) H 12/09/17 10:00 APTT 28.3 Seconds (25.1-36.5) 11/30/17 05:30 - Constitutional Appears: Well, Non-toxic, No Acute Distress - Head Exam Head Exam: ATRAUMATIC, NORMOCEPHALIC - Eye Exam Eye Exam: EOMI, PERRL. absent: Scleral icterus - ENT Exam ENT Exam: Mucous Membranes Moist - Respiratory Exam Respiratory Exam: Clear to Ausculation Bilateral, NORMAL BREATHING PATTERN. absent: Rales, Rhonchi, Wheezes - Cardiovascular Exam Cardiovascular Exam: RRR, +S1, +S2 - GI/Abdominal Exam GI & Abdominal Exam: Soft, Normal Bowel Sounds. absent: Tenderness - Extremities Exam Extremities Exam: absent: Pedal Edema Additional comments: 2+ DP/PT BL - Back Exam Back Exam: absent: CVA tenderness (L), CVA tenderness (R) - Neurological Exam Neurological Exam: Alert, Awake - Psychiatric Exam Psychiatric exam: Flat Affect - Skin Skin Exam: Dry, Intact, Warm Assessment and Plan - Assessment and Plan (Free Text) Assessment: 57yo male unknown PMHx admitted for AMS, right hip cellulitis, multifocal pneumonia, influenza A, strep viridians bacteremia with findings of stroke on MRI - acute vs. 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 Patient was treated for bacteremia with IV abx. Patient continues to refuse testing at this time. Guardianship establishment pending. Plan: Altered mental status Currently at baseline mentation which waxes and wanes Patient mentation clinically unchanged, able to answer simple questions Delirium precautions; PT -patient refusing to participate ASA 81 QD / LIPITOR 20 QD Coag negative Staphylococcus bacteremia Last bld clx negative 12/04/17 with completion of 6 week course of antibiotics Monitor WBC, ESR, CRP weekly Echocardiogram unable to rule out vegetations, family is unavailable for consent for TAHIR Stage 1 decubitus ulcer-improving Patient refuses to get out of bed to chair Refusing PT Skin breakdown improving Continue with Q2 turns, Wound care consulted Folic acid, Thiamine Colonic mass CT Abd/Pelvis showing colonic mass and hepatic lesions GI consulted: follow recs Flex sig/colonoscopy refused by patient at this time Family unable to be contacted for consent Diabetes mellitus type 2 in non-obese Continue ISS low Metformin 500mg BID Monitor glucose Carb consistent diet HTN Lisinopril 10 QD Amlodipine 10 mg PO QD Stable, continue to monitor Affective disorder Celexa 10mg PO Daily Constipation Colace 100mg BID Hx EtOH Abuse Thiamine Folic Acid Multivitamin Prophylaxis - Patient tolerating meals, no need for GI ppx - SCDs Dispo: Patient lacks decision making capacity and is unable to comprehend his diagnosis, medical treatment, potential benefit and risk associated with and without treatment. Guardianship paperwork being processed followed by potential placement. Court scheduled for 05/05/2018 concerning guardianship Case discussed w/ attending Dr. Endy Sanchez DO - PGY1 IM CLINICAL PSYCHOLOGIST - PAGER [phone] <Deanna Schumacher - Last Filed: 04/25/18 17:18> Objective - Vital Signs/Intake and Output Vital Signs (last 24 hours): Temp Pulse Resp BP Pulse Ox 97.5 F L 86 20 126/79 96 04/25/18 08:08 04/25/18 09:26 04/25/18 08:08 04/25/18 09:26 04/25/18 08:08 Intake and Output: 04/25/18 04/25/18 06:59 18:59 Intake Total 780 Balance 780 - Medications Medications: Current Medications Amlodipine Besylate (Norvasc) 10 mg PO DAILY [facility] Last Admin: 04/25/18 09:26 Dose: 10 mg Aspirin (Ecotrin) 81 mg PO DAILY [facility] Last Admin: 04/25/18 09:24 Dose: 81 mg Atorvastatin Calcium (Lipitor) 20 mg PO DIN [facility] Last Admin: 04/24/18 17:43 Dose: 20 mg Citalopram Hydrobromide (Celexa) 10 mg PO DAILY [facility] Last Admin: 04/25/18 09:24 Dose: 10 mg Folic Acid (Folic Acid) 1 mg PO DAILY [facility] Last Admin: 04/25/18 09:25 Dose: 1 mg Insulin Human Regular (Humulin R Low) 0 units SC [facility] PRN Reason: Protocol Last Admin: 04/25/18 11:34 Dose: Not Given Lisinopril (Zestril) 10 mg PO DAILY [facility] Last Admin: 04/25/18 09:26 Dose: 10 mg Metformin HCl (Glucophage) 500 mg PO BID [facility] Last Admin: 04/25/18 09:25 Dose: 500 mg Multivitamins/Minerals (Therapeutic-M Tab) 1 tab PO 0800 [facility] Last Admin: 04/25/18 09:26 Dose: 1 tab Polyethylene Glycol (Miralax) 17 gm PO BID [facility] Last Admin: 04/25/18 09:25 Dose: 17 gm Thiamine HCl (Vitamin B1 Tab) 100 mg PO DAILY [facility] Last Admin: 04/25/18 09:26 Dose: 100 mg - Labs Labs: 04/25/18 06:00 04/25/18 06:00 PT 12.5 SECONDS (9.4-12.5) 12/09/17 10:00 INR 1.09 (0.93-1.08) H 12/09/17 10:00 APTT 28.3 Seconds (25.1-36.5) 11/30/17 05:30 Attending/Attestation - Attestation I have personally seen and examined this patient.: Yes I have fully participated in the care of the patient.: Yes I have reviewed all pertinent clinical information, including history, physical exam and plan: Yes Notes (Text): 04/25/18 17:17 Patient was seen and examined with ophthalmic medical assistant. 57 yrs old male , S/P sepsis due to strep viridans and cogulase negative staph bacteremia from right gluteal and back cellulitis, S/P multifocal HCAP on top of Influenza A infection and S/P Sammie infection of sacral area as well. Mental status is at base line, Patient is awaiting for placement. Prognosis is guarded.
[2018-04-25] MEDS: Insulin Reg-LOW-Coverage SC SCH ×4 (09:25→21:44)
[2018-04-25] MEDS: POLYETHYLENE GLYCOL 3350 17 GM/Dose PACKET PO SCH ×2 (09:25→17:15)
[2018-04-25] MEDS: Multivitamin With Minerals Tab PO SCH (09:26)
--- NOTE | 2018-04-25 21:25 | CP.PCM.PN ---
Subjective - Date & Time of Evaluation Date of Evaluation: 04/25/18 Time of Evaluation: 09:10 - Subjective Subjective: No fevers, not in distress. Objective - Vital Signs/Intake and Output Vital Signs (last 24 hours): Temp Pulse Resp BP Pulse Ox 97.5 F L 86 20 126/79 96 04/25/18 08:08 04/25/18 08:08 04/25/18 08:08 04/25/18 08:08 04/25/18 08:08 Intake and Output: 04/25/18 04/25/18 06:59 18:59 Intake Total 780 Balance 780 - Medications Medications: Current Medications Amlodipine Besylate (Norvasc) 10 mg PO DAILY [facility] Last Admin: 04/24/18 14:16 Dose: 10 mg Aspirin (Ecotrin) 81 mg PO DAILY [facility] Last Admin: 04/24/18 11:21 Dose: 81 mg Atorvastatin Calcium (Lipitor) 20 mg PO DIN [facility] Last Admin: 04/24/18 17:43 Dose: 20 mg Citalopram Hydrobromide (Celexa) 10 mg PO DAILY [facility] Last Admin: 04/24/18 11:21 Dose: 10 mg Folic Acid (Folic Acid) 1 mg PO DAILY [facility] Last Admin: 04/24/18 11:21 Dose: 1 mg Insulin Human Regular (Humulin R Low) 0 units SC [facility] PRN Reason: Protocol Last Admin: 04/24/18 22:49 Dose: Not Given Lisinopril (Zestril) 10 mg PO DAILY [facility] Last Admin: 04/24/18 11:21 Dose: 10 mg Metformin HCl (Glucophage) 500 mg PO BID [facility] Last Admin: 04/24/18 17:43 Dose: 500 mg Multivitamins/Minerals (Therapeutic-M Tab) 1 tab PO 0800 [facility] Last Admin: 04/24/18 08:41 Dose: 1 tab Polyethylene Glycol (Miralax) 17 gm PO BID [facility] Last Admin: 04/24/18 17:44 Dose: 17 gm Thiamine HCl (Vitamin B1 Tab) 100 mg PO DAILY [facility] Last Admin: 04/24/18 11:21 Dose: 100 mg - Labs Labs: 04/25/18 06:00 04/25/18 06:00 PT 12.5 SECONDS (9.4-12.5) 12/09/17 10:00 INR 1.09 (0.93-1.08) H 12/09/17 10:00 APTT 28.3 Seconds (25.1-36.5) 11/30/17 05:30 - Constitutional Appears: Chronically Ill - Head Exam Head Exam: NORMAL INSPECTION - Respiratory Exam Respiratory Exam: Decreased Breath Sounds - Cardiovascular Exam Cardiovascular Exam: +S1, +S2 - GI/Abdominal Exam GI & Abdominal Exam: Soft. absent: Tenderness Assessment and Plan - Assessment and Plan (Free Text) Plan: Assessment S/P sepsis due to strep viridans and CoNS bacteremia from right gluteal and back cellulitis S/P multifocal HCAP on top of Influenza A infection S/P Sammie infection of sacral area as well peripheral vascular disease Plan patient had completed 42 days of antibiotics on this admission - continue to monitor clinically off antibiotics since he is at risk for hospital-acquired infections awaiting guardianship
--- NOTE | 2018-04-26 07:00 | CP.PCM.PN ---
<Mariano Morin - Last Filed: 04/26/18 19:39> Subjective - Date & Time of Evaluation Date of Evaluation: 04/26/18 Time of Evaluation: 07:00 - Subjective Subjective: Mariano Morin DO - PGY 1 IM [employer] - MEDICINE PROGRESS NOTE Pt. seen this AM at bedside; voicing no complaints this AM. Stated he had bowel movement last night. No reported issue by nursing overnight. He appears to be at baseline this AM. Pt. denies: DIXON, BV, CP, SOB, palpitations, cough, abdominal pain, NVDC. Objective - Vital Signs/Intake and Output Vital Signs (last 24 hours): Temp Pulse Resp BP Pulse Ox 97.5 F L 86 20 126/79 96 04/25/18 08:08 04/25/18 09:26 04/25/18 08:08 04/25/18 09:26 04/25/18 08:08 Intake and Output: 04/26/18 04/26/18 06:59 18:59 Intake Total 0 Balance 0 - Medications Medications: Current Medications Amlodipine Besylate (Norvasc) 10 mg PO DAILY [facility] Last Admin: 04/25/18 09:26 Dose: 10 mg Aspirin (Ecotrin) 81 mg PO DAILY [facility] Last Admin: 04/25/18 09:24 Dose: 81 mg Atorvastatin Calcium (Lipitor) 20 mg PO DIN [facility] Last Admin: 04/25/18 17:15 Dose: 20 mg Citalopram Hydrobromide (Celexa) 10 mg PO DAILY [facility] Last Admin: 04/25/18 09:24 Dose: 10 mg Folic Acid (Folic Acid) 1 mg PO DAILY [facility] Last Admin: 04/25/18 09:25 Dose: 1 mg Insulin Human Regular (Humulin R Low) 0 units SC [facility] PRN Reason: Protocol Last Admin: 04/25/18 21:44 Dose: Not Given Lisinopril (Zestril) 10 mg PO DAILY [facility] Last Admin: 04/25/18 09:26 Dose: 10 mg Metformin HCl (Glucophage) 500 mg PO BID [facility] Last Admin: 04/25/18 17:15 Dose: 500 mg Multivitamins/Minerals (Therapeutic-M Tab) 1 tab PO 0800 [facility] Last Admin: 04/25/18 09:26 Dose: 1 tab Polyethylene Glycol (Miralax) 17 gm PO BID [facility] Last Admin: 04/25/18 17:15 Dose: 17 gm Thiamine HCl (Vitamin B1 Tab) 100 mg PO DAILY [facility] Last Admin: 04/25/18 09:26 Dose: 100 mg - Labs Labs: 04/25/18 06:00 04/25/18 06:00 PT 12.5 SECONDS (9.4-12.5) 12/09/17 10:00 INR 1.09 (0.93-1.08) H 12/09/17 10:00 APTT 28.3 Seconds (25.1-36.5) 11/30/17 05:30 - Constitutional Appears: Well, Non-toxic, No Acute Distress - Head Exam Head Exam: ATRAUMATIC, NORMOCEPHALIC - Eye Exam Eye Exam: EOMI, PERRL. absent: Scleral icterus - ENT Exam ENT Exam: Mucous Membranes Moist - Respiratory Exam Respiratory Exam: Clear to Ausculation Bilateral, NORMAL BREATHING PATTERN. absent: Rales, Rhonchi, Wheezes - Cardiovascular Exam Cardiovascular Exam: RRR, +S1, +S2 - GI/Abdominal Exam GI & Abdominal Exam: Soft, Normal Bowel Sounds. absent: Tenderness - Extremities Exam Extremities Exam: absent: Pedal Edema Additional comments: 2+ DP/PT BL - Back Exam Back Exam: absent: CVA tenderness (L), CVA tenderness (R) - Neurological Exam Neurological Exam: Alert, Awake, Appears to be at baseline, AAOx2 - Psychiatric Exam Psychiatric exam: Flat Affect - Skin Skin Exam: Dry, Intact, Warm Assessment and Plan - Assessment and Plan (Free Text) Assessment: 57 yo male unknown PMHx admitted for AMS, right hip cellulitis, multifocal pneumonia, influenza A, strep viridians bacteremia with findings of stroke on MRI - acute vs. 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 Patient was treated for bacteremia with IV abx. Patient continues to refuse testing at this time. Guardianship establishment pending court date 05/05 Plan: Altered mental status Currently at baseline mentation, Oriented to person and place Patient mentation clinically unchanged, able to answer simple questions Delirium precautions; PT -patient refusing to participate ASA 81 QD / LIPITOR 20 QD Coag negative Staphylococcus bacteremia Last bld clx negative 12/04/17 with completion of 6 week course of antibiotics Monitor WBC, ESR, CRP weekly Echocardiogram unable to rule out vegetations, family is unavailable for consent for TAHIR Stage 1 decubitus ulcer-improving Patient refuses to get out of bed to chair Refusing PT Skin breakdown improving Continue with Q2 turns, Wound care consulted Folic acid, Thiamine Colonic mass CT Abd/Pelvis showing colonic mass and hepatic lesions GI consulted: follow recs Flex sig/colonoscopy refused by patient at this time Family unable to be contacted for consent Diabetes mellitus type 2 in non-obese Continue ISS low Metformin 500mg BID Monitor glucose Carb consistent diet HTN Lisinopril 10 QD Amlodipine 10 mg PO QD Stable, continue to monitor Affective disorder Celexa 10mg PO Daily Constipation Colace 100mg BID Hx EtOH Abuse Thiamine Folic Acid Multivitamin Prophylaxis - Patient tolerating meals, no need for GI ppx - SCDs Dispo: Patient lacks decision making capacity and is unable to comprehend his diagnosis, medical treatment, potential benefit and risk associated with and without treatment. Guardianship paperwork being processed followed by potential placement. Court scheduled for 05/05/2018 concerning guardianship Case discussed w/ attending Dr. Endy Morin DO - PGY1 IM [employer] - PAGER [phone] <Deanna Schumacher - Last Filed: 04/27/18 08:48> Objective - Vital Signs/Intake and Output Vital Signs (last 24 hours): Temp Pulse Resp BP Pulse Ox 97.9 F 88 18 111/75 95 04/27/18 07:41 04/27/18 07:41 04/27/18 07:41 04/27/18 07:41 04/27/18 07:41 Intake and Output: 04/27/18 04/27/18 06:59 18:59 Intake Total 660 Balance 660 - Medications Medications: Current Medications Amlodipine Besylate (Norvasc) 10 mg PO DAILY [facility] Last Admin: 04/26/18 10:03 Dose: 10 mg Aspirin (Ecotrin) 81 mg PO DAILY [facility] Last Admin: 04/26/18 10:03 Dose: 81 mg Atorvastatin Calcium (Lipitor) 20 mg PO DIN [facility] Last Admin: 04/26/18 17:53 Dose: 20 mg Citalopram Hydrobromide (Celexa) 10 mg PO DAILY [facility] Last Admin: 04/26/18 10:03 Dose: 10 mg Folic Acid (Folic Acid) 1 mg PO DAILY [facility] Last Admin: 04/26/18 10:03 Dose: 1 mg Insulin Human Regular (Humulin R Low) 0 units SC [facility] PRN Reason: Protocol Last Admin: 04/27/18 07:32 Dose: Not Given Lisinopril (Zestril) 10 mg PO DAILY [facility] Last Admin: 04/26/18 10:04 Dose: 10 mg Metformin HCl (Glucophage) 500 mg PO BID [facility] Last Admin: 04/26/18 17:53 Dose: 500 mg Multivitamins/Minerals (Therapeutic-M Tab) 1 tab PO 0800 [facility] Last Admin: 04/26/18 10:03 Dose: 1 tab Polyethylene Glycol (Miralax) 17 gm PO BID [facility] Last Admin: 04/26/18 17:53 Dose: 17 gm Thiamine HCl (Vitamin B1 Tab) 100 mg PO DAILY [facility] Last Admin: 04/26/18 10:03 Dose: 100 mg - Labs Labs: 04/25/18 06:00 04/25/18 06:00 PT 12.5 SECONDS (9.4-12.5) 12/09/17 10:00 INR 1.09 (0.93-1.08) H 12/09/17 10:00 APTT 28.3 Seconds (25.1-36.5) 11/30/17 05:30 Attending/Attestation - Attestation I have personally seen and examined this patient.: Yes I have fully participated in the care of the patient.: Yes I have reviewed all pertinent clinical information, including history, physical exam and plan: Yes Notes (Text): 04/27/18 08:48 Medical record note made by the resident after discussion with my direction and input after the patient was personally seen and examined by me. I have reviewed the chart and agree that the record accurately reflects by personal performance of the history, physical exam, data review, and medical decision-making, in the course for the patient. I have also personally directed the plan of care.
[2018-04-26] MEDS: Insulin Reg-LOW-Coverage SC SCH ×4 (07:56→21:17)
[2018-04-26] MEDS: POLYETHYLENE GLYCOL 3350 17 GM/Dose PACKET PO SCH ×2 (10:01→17:53)
[2018-04-26] MEDS: Multivitamin With Minerals Tab PO SCH (10:03)
--- NOTE | 2018-04-26 10:55 | CP.PCM.PN ---
Subjective - Date & Time of Evaluation Date of Evaluation: 04/26/18 Time of Evaluation: 08:10 - Subjective Subjective: Afebrile, comfortable. Objective - Vital Signs/Intake and Output Vital Signs (last 24 hours): Temp Pulse Resp BP Pulse Ox 97.8 F 94 H 20 126/85 96 04/26/18 07:33 04/26/18 07:33 04/26/18 07:33 04/26/18 07:33 04/26/18 07:33 Intake and Output: 04/26/18 04/26/18 06:59 18:59 Intake Total 0 Balance 0 - Medications Medications: Current Medications Amlodipine Besylate (Norvasc) 10 mg PO DAILY [facility] Last Admin: 04/25/18 09:26 Dose: 10 mg Aspirin (Ecotrin) 81 mg PO DAILY [facility] Last Admin: 04/25/18 09:24 Dose: 81 mg Atorvastatin Calcium (Lipitor) 20 mg PO DIN [facility] Last Admin: 04/25/18 17:15 Dose: 20 mg Citalopram Hydrobromide (Celexa) 10 mg PO DAILY [facility] Last Admin: 04/25/18 09:24 Dose: 10 mg Folic Acid (Folic Acid) 1 mg PO DAILY [facility] Last Admin: 04/25/18 09:25 Dose: 1 mg Insulin Human Regular (Humulin R Low) 0 units SC [facility] PRN Reason: Protocol Last Admin: 04/26/18 07:56 Dose: Not Given Lisinopril (Zestril) 10 mg PO DAILY [facility] Last Admin: 04/25/18 09:26 Dose: 10 mg Metformin HCl (Glucophage) 500 mg PO BID [facility] Last Admin: 04/25/18 17:15 Dose: 500 mg Multivitamins/Minerals (Therapeutic-M Tab) 1 tab PO 0800 [facility] Last Admin: 04/25/18 09:26 Dose: 1 tab Polyethylene Glycol (Miralax) 17 gm PO BID [facility] Last Admin: 04/25/18 17:15 Dose: 17 gm Thiamine HCl (Vitamin B1 Tab) 100 mg PO DAILY [facility] Last Admin: 04/25/18 09:26 Dose: 100 mg - Labs Labs: 04/25/18 06:00 04/25/18 06:00 PT 12.5 SECONDS (9.4-12.5) 12/09/17 10:00 INR 1.09 (0.93-1.08) H 12/09/17 10:00 APTT 28.3 Seconds (25.1-36.5) 11/30/17 05:30 - Constitutional Appears: Chronically Ill - Head Exam Head Exam: NORMAL INSPECTION - Respiratory Exam Respiratory Exam: Decreased Breath Sounds - Cardiovascular Exam Cardiovascular Exam: +S1, +S2 - GI/Abdominal Exam GI & Abdominal Exam: Soft. absent: Tenderness Assessment and Plan - Assessment and Plan (Free Text) Plan: Assessment S/P sepsis due to strep viridans and CoNS bacteremia from right gluteal and back cellulitis S/P multifocal HCAP on top of Influenza A infection S/P Sammie infection of sacral area as well peripheral vascular disease Plan patient had completed 42 days of antibiotics on this admission - continue to monitor clinically off antibiotics since he is at risk for healthcare- associated infections
--- NOTE | 2018-04-27 06:21 | CP.PCM.PN ---
<Mariano Morin - Last Filed: 04/27/18 14:45> Subjective - Date & Time of Evaluation Date of Evaluation: 04/27/18 Time of Evaluation: 06:18 - Subjective Subjective: Mariano Morin DO - PGY 1 IM MANUFACTURING TECHNOLOGY PROFESSOR - MEDICINE PROGRESS NOTE Pt. was seen this AM at bedside; voicing no complaints at this time, he is at baseline. Nursing reported one episode of nausea/vomiting this AM. Objective - Vital Signs/Intake and Output Vital Signs (last 24 hours): Temp Pulse Resp BP Pulse Ox 98.4 F 88 20 115/76 95 04/26/18 17:15 04/26/18 17:15 04/26/18 17:15 04/26/18 17:15 04/26/18 17:15 Intake and Output: 04/26/18 04/27/18 18:59 06:59 Intake Total 725 660 Balance 725 660 - Medications Medications: Current Medications Amlodipine Besylate (Norvasc) 10 mg PO DAILY [facility] Last Admin: 04/26/18 10:03 Dose: 10 mg Aspirin (Ecotrin) 81 mg PO DAILY [facility] Last Admin: 04/26/18 10:03 Dose: 81 mg Atorvastatin Calcium (Lipitor) 20 mg PO DIN [facility] Last Admin: 04/26/18 17:53 Dose: 20 mg Citalopram Hydrobromide (Celexa) 10 mg PO DAILY [facility] Last Admin: 04/26/18 10:03 Dose: 10 mg Folic Acid (Folic Acid) 1 mg PO DAILY [facility] Last Admin: 04/26/18 10:03 Dose: 1 mg Insulin Human Regular (Humulin R Low) 0 units SC [facility] PRN Reason: Protocol Last Admin: 04/26/18 21:17 Dose: Not Given Lisinopril (Zestril) 10 mg PO DAILY [facility] Last Admin: 04/26/18 10:04 Dose: 10 mg Metformin HCl (Glucophage) 500 mg PO BID [facility] Last Admin: 04/26/18 17:53 Dose: 500 mg Multivitamins/Minerals (Therapeutic-M Tab) 1 tab PO 0800 [facility] Last Admin: 04/26/18 10:03 Dose: 1 tab Polyethylene Glycol (Miralax) 17 gm PO BID [facility] Last Admin: 04/26/18 17:53 Dose: 17 gm Thiamine HCl (Vitamin B1 Tab) 100 mg PO DAILY [facility] Last Admin: 04/26/18 10:03 Dose: 100 mg Physical Exam - Constitutional Appears: Well, Non-toxic, No Acute Distress - Head Exam Head Exam: ATRAUMATIC, NORMOCEPHALIC - Eye Exam Eye Exam: EOMI, PERRL. absent: Scleral icterus - ENT Exam ENT Exam: Mucous Membranes Moist - Respiratory Exam Respiratory Exam: Clear to Ausculation Bilateral, NORMAL BREATHING PATTERN. absent: Rales, Rhonchi, Wheezes - Cardiovascular Exam Cardiovascular Exam: RRR, +S1, +S2 - GI/Abdominal Exam GI & Abdominal Exam: Soft, Normal Bowel Sounds. absent: Tenderness - Extremities Exam Extremities Exam: absent: Pedal Edema Additional comments: 2+ DP/PT BL, On dorsolateral aspect of L foot a 2cm crusted stage 1 ulcer is appreciated. - Back Exam Back Exam: absent: CVA tenderness (L), CVA tenderness (R) - Neurological Exam Neurological Exam: Alert, Awake, Appears to be at baseline, AAOx2 - Psychiatric Exam Psychiatric exam: Flat Affect - Skin Skin Exam: Dry, Intact, Warm - Labs Labs: 04/25/18 06:00 04/25/18 06:00 PT 12.5 SECONDS (9.4-12.5) 12/09/17 10:00 INR 1.09 (0.93-1.08) H 12/09/17 10:00 APTT 28.3 Seconds (25.1-36.5) 11/30/17 05:30 - Constitutional Appears: Well, Non-toxic, No Acute Distress - Head Exam Head Exam: ATRAUMATIC, NORMOCEPHALIC - Eye Exam Eye Exam: EOMI, PERRL. absent: Scleral icterus - ENT Exam ENT Exam: Mucous Membranes Moist - Respiratory Exam Respiratory Exam: Clear to Ausculation Bilateral, NORMAL BREATHING PATTERN. absent: Rales, Rhonchi, Wheezes - Cardiovascular Exam Cardiovascular Exam: RRR, +S1, +S2 - GI/Abdominal Exam GI & Abdominal Exam: Soft, Normal Bowel Sounds. absent: Tenderness - Extremities Exam Extremities Exam: absent: Pedal Edema Additional comments: 2+ DP/PT BL - Back Exam Back Exam: absent: CVA tenderness (L), CVA tenderness (R) - Neurological Exam Neurological Exam: Alert, Awake, Appears to be at baseline, AAOx2 - Psychiatric Exam Psychiatric exam: Flat Affect - Skin Skin Exam: Dry, Intact, Warm Assessment and Plan - Assessment and Plan (Free Text) Assessment: 57 yo male unknown PMHx admitted for AMS, right hip cellulitis, multifocal pneumonia, influenza A, strep viridians bacteremia with findings of stroke on MRI - acute vs. 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 Patient was treated for bacteremia with IV abx. Patient continues to refuse testing at this time. Guardianship establishment pending court date 05/05 Plan: Altered mental status Currently at baseline mentation, Oriented to person and place Patient mentation clinically unchanged, able to answer simple questions Delirium precautions; PT -patient refusing to participate ASA 81 QD / LIPITOR 20 QD Left Foot Ulcer 2CM crusted ulcer appreciated on L foot; appears to be healing well Wound care consulted; reccs appreciated. Coag negative Staphylococcus bacteremia Last bld clx negative 12/04/17 with completion of 6 week course of antibiotics Monitor WBC, ESR, CRP weekly Echocardiogram unable to rule out vegetations, family is unavailable for consent for TAHIR Stage 1 decubitus ulcer-improving Patient refuses to get out of bed to chair Refusing PT Skin breakdown improving Continue with Q2 turns, Wound care signed off Folic acid, Thiamine Colonic mass CT Abd/Pelvis showing colonic mass and hepatic lesions GI consulted: follow recs Flex sig/colonoscopy refused by patient at this time Family unable to be contacted for consent Diabetes mellitus type 2 in non-obese Continue ISS low Metformin 500mg BID Monitor glucose Carb consistent diet HTN Lisinopril 10 QD Amlodipine 10 mg PO QD Stable, continue to monitor Affective disorder Celexa 10mg PO Daily Constipation Colace 100mg BID Hx EtOH Abuse Thiamine Folic Acid Multivitamin Prophylaxis - Patient tolerating meals, no need for GI ppx - SCDs Dispo: Patient lacks decision making capacity and is unable to comprehend his diagnosis, medical treatment, potential benefit and risk associated with and without treatment. Guardianship paperwork being processed followed by potential placement. Court scheduled for 05/05/2018 concerning guardianship Case discussed w/ attending Dr. Endy Morin DO - PGY1 IM MANUFACTURING TECHNOLOGY PROFESSOR - PAGER [phone] <Deanna Schumacher - Last Filed: 04/27/18 16:01> Objective - Vital Signs/Intake and Output Vital Signs (last 24 hours): Temp Pulse Resp BP Pulse Ox 97.9 F 88 18 111/75 95 04/27/18 07:41 04/27/18 09:47 04/27/18 07:41 04/27/18 09:47 04/27/18 07:41 Intake and Output: 04/27/18 04/27/18 06:59 18:59 Intake Total 660 660 Output Total 600 Balance 660 60 - Medications Medications: Current Medications Amlodipine Besylate (Norvasc) 10 mg PO DAILY [facility] Last Admin: 04/27/18 09:47 Dose: 10 mg Aspirin (Ecotrin) 81 mg PO DAILY [facility] Last Admin: 04/27/18 09:47 Dose: 81 mg Atorvastatin Calcium (Lipitor) 20 mg PO DIN [facility] Last Admin: 04/26/18 17:53 Dose: 20 mg Citalopram Hydrobromide (Celexa) 10 mg PO DAILY [facility] Last Admin: 04/27/18 09:47 Dose: 10 mg Folic Acid (Folic Acid) 1 mg PO DAILY [facility] Last Admin: 04/27/18 09:47 Dose: 1 mg Insulin Human Regular (Humulin R Low) 0 units SC [facility] PRN Reason: Protocol Last Admin: 04/27/18 11:17 Dose: Not Given Lisinopril (Zestril) 10 mg PO DAILY [facility] Last Admin: 04/27/18 09:47 Dose: 10 mg Metformin HCl (Glucophage) 500 mg PO BID [facility] Last Admin: 04/27/18 09:47 Dose: 500 mg Multivitamins/Minerals (Therapeutic-M Tab) 1 tab PO 0800 [facility] Last Admin: 04/27/18 09:47 Dose: 1 tab Polyethylene Glycol (Miralax) 17 gm PO BID [facility] Last Admin: 04/27/18 09:47 Dose: 17 gm Thiamine HCl (Vitamin B1 Tab) 100 mg PO DAILY [facility] Last Admin: 04/27/18 09:47 Dose: 100 mg - Labs Labs: 04/25/18 06:00 04/25/18 06:00 PT 12.5 SECONDS (9.4-12.5) 12/09/17 10:00 INR 1.09 (0.93-1.08) H 12/09/17 10:00 APTT 28.3 Seconds (25.1-36.5) 11/30/17 05:30 Attending/Attestation - Attestation I have personally seen and examined this patient.: Yes I have fully participated in the care of the patient.: Yes I have reviewed all pertinent clinical information, including history, physical exam and plan: Yes Notes (Text): 04/27/18 16:01 Medical record note made by the resident after discussion with my direction and input after the patient was personally seen and examined by me. I have reviewed the chart and agree that the record accurately reflects by personal performance of the history, physical exam, data review, and medical decision-making, in the course for the patient. I have also personally directed the plan of care. 57 yrs old male , S/P sepsis due to strep viridans and cogulase negative staph bacteremia from right gluteal and back cellulitis, S/P multifocal HCAP on top of Influenza A infection and S/P Sammie infection of sacral area as well. Mental status is at base line, Patient is awaiting for placement. Prognosis is guarded.
[2018-04-27] MEDS: Insulin Reg-LOW-Coverage SC SCH ×4 (07:32→21:25)
[2018-04-27] MEDS: POLYETHYLENE GLYCOL 3350 17 GM/Dose PACKET PO SCH ×2 (09:47→18:48)
[2018-04-27] MEDS: Multivitamin With Minerals Tab PO SCH (09:47)
--- NOTE | 2018-04-27 10:58 | CP.PCM.PN ---
Subjective - Date & Time of Evaluation Date of Evaluation: 04/27/18 Time of Evaluation: 09:00 - Subjective Subjective: Not in distress, afebrile. Objective - Vital Signs/Intake and Output Vital Signs (last 24 hours): Temp Pulse Resp BP Pulse Ox 97.9 F 88 18 111/75 95 04/27/18 07:41 04/27/18 07:41 04/27/18 07:41 04/27/18 07:41 04/27/18 07:41 Intake and Output: 04/27/18 04/27/18 06:59 18:59 Intake Total 660 Balance 660 - Medications Medications: Current Medications Amlodipine Besylate (Norvasc) 10 mg PO DAILY [facility] Last Admin: 04/26/18 10:03 Dose: 10 mg Aspirin (Ecotrin) 81 mg PO DAILY [facility] Last Admin: 04/26/18 10:03 Dose: 81 mg Atorvastatin Calcium (Lipitor) 20 mg PO DIN [facility] Last Admin: 04/26/18 17:53 Dose: 20 mg Citalopram Hydrobromide (Celexa) 10 mg PO DAILY [facility] Last Admin: 04/26/18 10:03 Dose: 10 mg Folic Acid (Folic Acid) 1 mg PO DAILY [facility] Last Admin: 04/26/18 10:03 Dose: 1 mg Insulin Human Regular (Humulin R Low) 0 units SC [facility] PRN Reason: Protocol Last Admin: 04/27/18 07:32 Dose: Not Given Lisinopril (Zestril) 10 mg PO DAILY [facility] Last Admin: 04/26/18 10:04 Dose: 10 mg Metformin HCl (Glucophage) 500 mg PO BID [facility] Last Admin: 04/26/18 17:53 Dose: 500 mg Multivitamins/Minerals (Therapeutic-M Tab) 1 tab PO 0800 [facility] Last Admin: 04/26/18 10:03 Dose: 1 tab Polyethylene Glycol (Miralax) 17 gm PO BID [facility] Last Admin: 04/26/18 17:53 Dose: 17 gm Thiamine HCl (Vitamin B1 Tab) 100 mg PO DAILY [facility] Last Admin: 04/26/18 10:03 Dose: 100 mg - Labs Labs: 04/25/18 06:00 04/25/18 06:00 PT 12.5 SECONDS (9.4-12.5) 12/09/17 10:00 INR 1.09 (0.93-1.08) H 12/09/17 10:00 APTT 28.3 Seconds (25.1-36.5) 11/30/17 05:30 - Constitutional Appears: Non-toxic, Chronically Ill - Head Exam Head Exam: NORMAL INSPECTION - Respiratory Exam Respiratory Exam: Decreased Breath Sounds - Cardiovascular Exam Cardiovascular Exam: +S1, +S2 - GI/Abdominal Exam GI & Abdominal Exam: Soft. absent: Tenderness Assessment and Plan - Assessment and Plan (Free Text) Plan: Assessment S/P sepsis due to strep viridans and CoNS bacteremia from right gluteal and back cellulitis S/P multifocal HCAP on top of Influenza A infection S/P Sammie infection of sacral area as well peripheral vascular disease Plan patient had completed 42 days of antibiotics on this admission - continue to monitor clinically off antibiotics since he is at risk for nosocomial infections
[2018-04-28] MEDS: Insulin Reg-LOW-Coverage SC SCH ×4 (08:06→21:15)
[2018-04-28] MEDS: Multivitamin With Minerals Tab PO SCH (09:53)
[2018-04-28] MEDS: POLYETHYLENE GLYCOL 3350 17 GM/Dose PACKET PO SCH ×2 (09:54→17:20)
--- NOTE | 2018-04-28 12:47 | CP.PCM.PN ---
Subjective - Date & Time of Evaluation Date of Evaluation: 04/28/18 Time of Evaluation: 08:45 - Subjective Subjective: Comfortable, afebrile. Objective - Vital Signs/Intake and Output Vital Signs (last 24 hours): Temp Pulse Resp BP Pulse Ox 97.1 F L 83 20 102/61 94 L 04/28/18 07:49 04/28/18 07:49 04/28/18 07:49 04/28/18 07:49 04/28/18 07:49 Intake and Output: 04/28/18 04/28/18 06:59 18:59 Intake Total 720 Balance 720 - Medications Medications: Current Medications Amlodipine Besylate (Norvasc) 10 mg PO DAILY [facility] Last Admin: 04/27/18 09:47 Dose: 10 mg Aspirin (Ecotrin) 81 mg PO DAILY [facility] Last Admin: 04/27/18 09:47 Dose: 81 mg Atorvastatin Calcium (Lipitor) 20 mg PO DIN [facility] Last Admin: 04/27/18 18:49 Dose: 20 mg Citalopram Hydrobromide (Celexa) 10 mg PO DAILY [facility] Last Admin: 04/27/18 09:47 Dose: 10 mg Folic Acid (Folic Acid) 1 mg PO DAILY [facility] Last Admin: 04/27/18 09:47 Dose: 1 mg Insulin Human Regular (Humulin R Low) [address] [facility] PRN Reason: Protocol Last Admin: 04/28/18 08:06 Dose: Not Given Lisinopril (Zestril) 10 mg PO DAILY [facility] Last Admin: 04/27/18 09:47 Dose: 10 mg Metformin HCl (Glucophage) 500 mg PO BID [facility] Last Admin: 04/27/18 18:48 Dose: 500 mg Multivitamins/Minerals (Therapeutic-M Tab) 1 tab PO 0800 [facility] Last Admin: 04/27/18 09:47 Dose: 1 tab Polyethylene Glycol (Miralax) 17 gm PO BID [facility] Last Admin: 04/27/18 18:48 Dose: 17 gm Thiamine HCl (Vitamin B1 Tab) 100 mg PO DAILY [facility] Last Admin: 04/27/18 09:47 Dose: 100 mg - Labs Labs: 04/25/18 06:00 04/25/18 06:00 PT 12.5 SECONDS (9.4-12.5) 12/09/17 10:00 INR 1.09 (0.93-1.08) H 12/09/17 10:00 APTT 28.3 Seconds (25.1-36.5) 11/30/17 05:30 - Constitutional Appears: Non-toxic, Chronically Ill - Head Exam Head Exam: NORMAL INSPECTION - Respiratory Exam Respiratory Exam: Decreased Breath Sounds - Cardiovascular Exam Cardiovascular Exam: +S1, +S2 - GI/Abdominal Exam GI & Abdominal Exam: Soft. absent: Tenderness Assessment and Plan - Assessment and Plan (Free Text) Plan: Assessment S/P sepsis due to strep viridans and CoNS bacteremia from right gluteal and back cellulitis S/P multifocal HCAP on top of Influenza A infection S/P Sammie infection of sacral area as well peripheral vascular disease Plan continue to monitor clinically off antibiotics since he is at risk for hospital- acquired infections
--- NOTE | 2018-04-28 15:43 | CP.PCM.PN ---
<Mariano Morin - Last Filed: 04/28/18 15:40> Subjective - Date & Time of Evaluation Date of Evaluation: 04/28/18 Time of Evaluation: 07:20 - Subjective Subjective: Mariano Morin DO - PGY 1, Internal Medicine Tapping Machine Operator, Medicine Progress Note 57 year old male unknown PMHx admitted for AMS, right hip cellulitis, multifocal pneumonia, influenza A, strep viridians bacteremia with findings of stroke on MRI - acute vs. 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 Patient was treated for bacteremia with IV abx. Patient continues to refuse testing at this time. Guardianship establishment pending court date 05/05. Patient was seen this at bedside. No acute complaints. Overall at baseline. Last BM yesterday. Objective - Vital Signs/Intake and Output Vital Signs (last 24 hours): Temp Pulse Resp BP Pulse Ox 97.1 F L 83 20 102/61 94 L 04/28/18 07:49 04/28/18 07:49 04/28/18 07:49 04/28/18 09:53 04/28/18 07:49 Intake and Output: 04/28/18 04/28/18 06:59 18:59 Intake Total 720 800 Balance 720 800 - Medications Medications: Current Medications Amlodipine Besylate (Norvasc) 10 mg PO DAILY [facility] Last Admin: 04/28/18 09:53 Dose: 10 mg Aspirin (Ecotrin) 81 mg PO DAILY [facility] Last Admin: 04/28/18 09:54 Dose: 81 mg Atorvastatin Calcium (Lipitor) 20 mg PO DIN [facility] Last Admin: 04/27/18 18:49 Dose: 20 mg Citalopram Hydrobromide (Celexa) 10 mg PO DAILY [facility] Last Admin: 04/28/18 09:54 Dose: 10 mg Folic Acid (Folic Acid) 1 mg PO DAILY [facility] Last Admin: 04/28/18 09:54 Dose: 1 mg Insulin Human Regular (Humulin R Low) 0 units SC [facility] PRN Reason: Protocol Last Admin: 04/28/18 12:49 Dose: 1 units Lisinopril (Zestril) 10 mg PO DAILY [facility] Last Admin: 04/28/18 09:54 Dose: 10 mg Metformin HCl (Glucophage) 500 mg PO BID [facility] Last Admin: 04/28/18 09:54 Dose: 500 mg Multivitamins/Minerals (Therapeutic-M Tab) 1 tab PO 0800 [facility] Last Admin: 04/28/18 09:53 Dose: 1 tab Polyethylene Glycol (Miralax) 17 gm PO BID [facility] Last Admin: 04/28/18 09:54 Dose: 17 gm Thiamine HCl (Vitamin B1 Tab) 100 mg PO DAILY [facility] Last Admin: 04/28/18 09:54 Dose: 100 mg - Labs Labs: 04/25/18 06:00 04/25/18 06:00 PT 12.5 SECONDS (9.4-12.5) 12/09/17 10:00 INR 1.09 (0.93-1.08) H 12/09/17 10:00 APTT 28.3 Seconds (25.1-36.5) 11/30/17 05:30 - Constitutional Appears: Well developed, Awake, Alert, Non-toxic, No Acute Distress - Head Exam Head Exam: ATRAUMATIC, NORMOCEPHALIC - Eye Exam Eye Exam: EOMI, PERRL. absent: Scleral icterus - ENT Exam ENT Exam: Mucous Membranes Moist - Respiratory Exam Respiratory Exam: Clear to Ausculation Bilateral, NORMAL BREATHING PATTERN. absent: Rales, Rhonchi, Wheezes - Cardiovascular Exam Cardiovascular Exam: RRR, +S1, +S2 - GI/Abdominal Exam GI & Abdominal Exam: Soft, Normal Bowel Sounds. absent: Tenderness - Extremities Exam Extremities Exam: 2+ DP/PT BL, no edema, no cyanosis - Back Exam Back Exam: absent: CVA tenderness (L), CVA tenderness (R) - Neurological Exam Neurological Exam: Alert, Awake, Appears to be at baseline, AAOx2 - Psychiatric Exam Psychiatric exam: Flat Affect - Skin Skin Exam: Dry, Warm, dorsolateral R foot a 2cm crusted lesion, healing Assessment and Plan - Assessment and Plan (Free Text) Assessment: 57 year old male unknown PMHx admitted for AMS, right hip cellulitis, multifocal pneumonia, influenza A, strep viridians bacteremia with findings of stroke on MRI - acute vs. 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 Patient was treated for bacteremia with IV abx. Patient continues to refuse testing at this time. Guardianship establishment pending court date 05/05. Plan: 1. Altered mental status Mentation at baseline, answers simple questions Cont delirium precautions PT -patient refusing to participate Cont ASA 81 QD / LIPITOR 20 QD 2. Right Foot Ulcer 2CM crusted ulcer appreciated on R foot; appears to be healing well Wound care consulted; reccs appreciated 3. Coag negative Staphylococcus bacteremia - resolved Last bld clx negative 12/04/17 with completion of 6 week course of antibiotics Monitor WBC, ESR, CRP weekly Echocardiogram unable to rule out vegetations, family is unavailable for consent for TAHIR 4. Colonic mass CT Abd/Pelvis showing colonic mass and hepatic lesions GI consulted: follow recs Flex sig/colonoscopy refused by patient at this time Family unable to be contacted for consent 5. Diabetes mellitus type 2 Cont RISS low Cont Metformin 500mg BID Cont accuchecks Carb consistent diet 6. HTN SBP 102-115 Cont Lisinopril 10 QD Cont Amlodipine 10 mg PO QD Stable, continue to monitor 7. Affective disorder Cont Celexa 10mg PO Daily 8. Constipation Cont Colace 100mg BID 9. Hx EtOH Abuse Cont Thiamine Cont Folic Acid Cont Multivitamin 10. Stage 1 decubitus ulcer-resolved DVT Prophylaxis: SCDs Dispo: Patient continues to lack decision making capacity: Guardianship paperwork being processed. Court scheduled for 05/05/2018 concerning guardianship. Placement to be determined. Patient was seen and examined and case was discussed at length with attending Dr. Schumacher. Mariano Morin DO - PGY1 IM AGRICULTURAL SERVICE TECHNICIAN - PAGER [phone] <Deanna Schumacher - Last Filed: 04/28/18 18:08> Objective - Vital Signs/Intake and Output Vital Signs (last 24 hours): Temp Pulse Resp BP Pulse Ox 97.6 F 90 20 105/64 95 04/28/18 16:31 04/28/18 16:31 04/28/18 16:31 04/28/18 16:31 04/28/18 16:31 Intake and Output: 04/28/18 04/28/18 06:59 18:59 Intake Total 720 800 Balance 720 800 - Medications Medications: Current Medications Amlodipine Besylate (Norvasc) 10 mg PO DAILY [facility] Last Admin: 04/28/18 09:53 Dose: 10 mg Aspirin (Ecotrin) 81 mg PO DAILY [facility] Last Admin: 04/28/18 09:54 Dose: 81 mg Atorvastatin Calcium (Lipitor) 20 mg PO DIN [facility] Last Admin: 04/28/18 17:20 Dose: 20 mg Citalopram Hydrobromide (Celexa) 10 mg PO DAILY [facility] Last Admin: 04/28/18 09:54 Dose: 10 mg Folic Acid (Folic Acid) 1 mg PO DAILY [facility] Last Admin: 04/28/18 09:54 Dose: 1 mg Insulin Human Regular (Humulin R Low) 0 units SC [facility] PRN Reason: Protocol Last Admin: 04/28/18 15:53 Dose: Not Given Lisinopril (Zestril) 10 mg PO DAILY [facility] Last Admin: 04/28/18 09:54 Dose: 10 mg Metformin HCl (Glucophage) 500 mg PO BID [facility] Last Admin: 04/28/18 17:20 Dose: 500 mg Multivitamins/Minerals (Therapeutic-M Tab) 1 tab PO 0800 [facility] Last Admin: 04/28/18 09:53 Dose: 1 tab Polyethylene Glycol (Miralax) 17 gm PO BID [facility] Last Admin: 04/28/18 17:20 Dose: 17 gm Thiamine HCl (Vitamin B1 Tab) 100 mg PO DAILY [facility] Last Admin: 04/28/18 09:54 Dose: 100 mg - Labs Labs: 04/25/18 06:00 04/25/18 06:00 PT 12.5 SECONDS (9.4-12.5) 12/09/17 10:00 INR 1.09 (0.93-1.08) H 12/09/17 10:00 APTT 28.3 Seconds (25.1-36.5) 18 05:30 Attending/Attestation - Attestation I have personally seen and examined this patient.: Yes I have fully participated in the care of the patient.: Yes I have reviewed all pertinent clinical information, including history, physical exam and plan: Yes Notes (Text): 04/28/18 18:08 Medical record note made by the resident after discussion with my direction and input after the patient was personally seen and examined by me. I have reviewed the chart and agree that the record accurately reflects by personal performance of the history, physical exam, data review, and medical decision-making, in the course for the patient. I have also personally directed the plan of care.
--- NOTE | 2018-04-29 05:08 | CP.PCM.PN ---
<Mariano Morin - Last Filed: 04/29/18 15:49> Subjective - Date & Time of Evaluation Date of Evaluation: 04/29/18 Time of Evaluation: 05:05 - Subjective Subjective: Mariano Morin DO - PGY1 IM Organic Preparation Analyst - Medicine Progress Note. Seen and examined this morning; no complaints voiced by patient; Nursing reported no acute event overnight; Nursing stated he had bowel movement this AM. He is at baseline at this time. Objective - Vital Signs/Intake and Output Vital Signs (last 24 hours): Temp Pulse Resp BP Pulse Ox 97.6 F 90 20 105/64 95 04/28/18 16:31 04/28/18 16:31 04/28/18 16:31 04/28/18 16:31 04/28/18 16:31 Intake and Output: 04/28/18 04/29/18 18:59 06:59 Intake Total 800 660 Balance 800 660 - Medications Medications: Current Medications Amlodipine Besylate (Norvasc) 10 mg PO DAILY [facility] Last Admin: 04/28/18 09:53 Dose: 10 mg Aspirin (Ecotrin) 81 mg PO DAILY [facility] Last Admin: 04/28/18 09:54 Dose: 81 mg Atorvastatin Calcium (Lipitor) 20 mg PO DIN [facility] Last Admin: 04/28/18 17:20 Dose: 20 mg Citalopram Hydrobromide (Celexa) 10 mg PO DAILY [facility] Last Admin: 04/28/18 09:54 Dose: 10 mg Folic Acid (Folic Acid) 1 mg PO DAILY [facility] Last Admin: 04/28/18 09:54 Dose: 1 mg Insulin Human Regular (Humulin R Low) 0 units SC [facility] PRN Reason: Protocol Last Admin: 04/28/18 21:15 Dose: Not Given Lisinopril (Zestril) 10 mg PO DAILY [facility] Last Admin: 04/28/18 09:54 Dose: 10 mg Metformin HCl (Glucophage) 500 mg PO BID [facility] Last Admin: 04/28/18 17:20 Dose: 500 mg Multivitamins/Minerals (Therapeutic-M Tab) 1 tab PO 0800 [facility] Last Admin: 04/28/18 09:53 Dose: 1 tab Polyethylene Glycol (Miralax) 17 gm PO BID [facility] Last Admin: 04/28/18 17:20 Dose: 17 gm Thiamine HCl (Vitamin B1 Tab) 100 mg PO DAILY [facility] Last Admin: 07/12/18 09:54 Dose: 100 mg - Labs Labs: 04/25/18 06:00 04/25/18 06:00 PT 12.5 SECONDS (9.4-12.5) 12/09/17 10:00 INR 1.09 (0.93-1.08) H 12/09/17 10:00 APTT 28.3 Seconds (25.1-36.5) 11/30/17 05:30 - Constitutional Appears: Well, Non-toxic, No Acute Distress - Head Exam Head Exam: ATRAUMATIC, NORMOCEPHALIC - Eye Exam Eye Exam: EOMI, PERRL. absent: Scleral icterus - ENT Exam ENT Exam: Mucous Membranes Moist - Respiratory Exam Respiratory Exam: Clear to Ausculation Bilateral, NORMAL BREATHING PATTERN. absent: Rhonchi, Wheezes - Cardiovascular Exam Cardiovascular Exam: RRR, +S1, +S2 - GI/Abdominal Exam GI & Abdominal Exam: Soft, Normal Bowel Sounds. absent: Tenderness - Extremities Exam Extremities Exam: absent: Pedal Edema Additional comments: 2+ TP/DP BL; 2-3CM crusted ulcer on dorsal aspec of R foot. No surrounding erythema; no discharge. - Neurological Exam Neurological Exam: Alert, Awake Additional comments: AAOx1 - Psychiatric Exam Additional comments: Flat affect; Short 1-2 word answers; At baseline Assessment and Plan - Assessment and Plan (Free Text) Assessment: 57 year old male unknown PMHx admitted for AMS, right hip cellulitis, multifocal pneumonia, influenza A, strep viridians bacteremia with findings of stroke on MRI - acute vs. 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 Patient was treated for bacteremia with IV abx. Patient continues to refuse testing at this time. Guardianship establishment pending court date 05/05. Plan: 1. Altered mental status Patient's mental status appears to be at baseline this AM; AAOx1 on evaluation ; does not appear. Cont delirium precautions PT -patient refusing to participate Cont ASA 81 QD / LIPITOR 20 QD 2. Right Foot Ulcer Crusted ulcer appreciated on R foot; approx 2 cm; no discharge or erythema around wound; appears to be healing well. Wound care consulted; reccs appreciated 3. Coag negative Staphylococcus bacteremia - resolved Last bld clx negative 12/04/17 with completion of 6 week course of antibiotics Monitor WBC, ESR, CRP weekly Echocardiogram unable to rule out vegetations, family is unavailable for consent for TAHIR 4. Colonic mass CT Abd/Pelvis showing colonic mass and hepatic lesions GI consulted: follow recs Flex sig/colonoscopy refused by patient at this time Family unable to be contacted for consent 5. Diabetes mellitus type 2 Cont RISS low Cont Metformin 500mg BID Cont accuchecks Carb consistent diet 6. HTN SBP Staple Cont Lisinopril 10 QD Cont Amlodipine 10 mg PO QD Stable, continue to monitor 7. Affective disorder Cont Celexa 10mg PO Daily 8. Constipation Cont Colace 100mg BID 9. Hx EtOH Abuse Cont Thiamine Cont Folic Acid Cont Multivitamin 10. Stage 1 decubitus ulcer-resolved DVT Prophylaxis: SCDs Dispo: Patient continues to display a lack of decision making capacity: Guardianship status to be determined; Court date for guardianship scheduled on Patient was seen and examined and case was discussed at length with attending Dr. Schumacher. Mariano Morin DO - PGY1 IM LABOR REPRESENTATIVE - PAGER [phone] <Deanna Schumacher - Last Filed: 04/30/18 10:54> Objective - Vital Signs/Intake and Output Vital Signs (last 24 hours): Temp Pulse Resp BP Pulse Ox 97.6 F 87 20 115/72 97 04/30/18 08:01 04/30/18 08:01 04/30/18 08:01 04/30/18 08:01 04/30/18 08:01 Intake and Output: 04/30/18 04/30/18 06:59 18:59 Intake Total 540 Balance 540 - Medications Medications: Current Medications Amlodipine Besylate (Norvasc) 10 mg PO DAILY [facility] Last Admin: 04/29/18 09:21 Dose: 10 mg Aspirin (Ecotrin) 81 mg PO DAILY [facility] Last Admin: 04/29/18 09:21 Dose: 81 mg Atorvastatin Calcium (Lipitor) 20 mg PO DIN [facility] Last Admin: 04/29/18 17:05 Dose: 20 mg Citalopram Hydrobromide (Celexa) 10 mg PO DAILY [facility] Last Admin: 04/29/18 09:21 Dose: 10 mg Folic Acid (Folic Acid) 1 mg PO DAILY [facility] Last Admin: 04/29/18 09:21 Dose: 1 mg Insulin Human Regular (Humulin R Low) 0 units SC [facility] PRN Reason: Protocol Last Admin: 04/30/18 08:01 Dose: Not Given Lisinopril (Zestril) 10 mg PO DAILY [facility] Last Admin: 04/29/18 09:22 Dose: 10 mg Metformin HCl (Glucophage) 500 mg PO BID [facility] Last Admin: 04/29/18 17:05 Dose: 500 mg Multivitamins/Minerals (Therapeutic-M Tab) 1 tab PO 0800 [facility] Last Admin: 04/30/18 08:27 Dose: 1 tab Polyethylene Glycol (Miralax) 17 gm PO BID [facility] Last Admin: 04/29/18 17:05 Dose: 17 gm Thiamine HCl (Vitamin B1 Tab) 100 mg PO DAILY [facility] Last Admin: 04/29/18 09:22 Dose: 100 mg - Labs Labs: 04/25/18 06:00 04/25/18 06:00 PT 12.5 SECONDS (9.4-12.5) 12/09/17 10:00 INR 1.09 (0.93-1.08) H 12/09/17 10:00 APTT 28.3 Seconds (25.1-36.5) 11/30/17 05:30 Attending/Attestation - Attestation I have personally seen and examined this patient.: Yes I have fully participated in the care of the patient.: Yes I have reviewed all pertinent clinical information, including history, physical exam and plan: Yes Notes (Text): 04/30/18 10:54 Medical record note made by the resident after discussion with my direction and input after the patient was personally seen and examined by me. I have reviewed the chart and agree that the record accurately reflects by personal performance of the history, physical exam, data review, and medical decision-making, in the course for the patient. I have also personally directed the plan of care
[2018-04-29] MEDS: Insulin Reg-LOW-Coverage SC SCH ×4 (07:39→21:53)
[2018-04-29] MEDS: Multivitamin With Minerals Tab PO SCH (09:21)
[2018-04-29] MEDS: POLYETHYLENE GLYCOL 3350 17 GM/Dose PACKET PO SCH ×2 (09:22→17:05)
--- NOTE | 2018-04-29 12:07 | CP.PCM.PN ---
Subjective - Date & Time of Evaluation Date of Evaluation: 04/28/18 Time of Evaluation: 09:35 - Subjective Subjective: Comfortable in bed, afebrile. Objective - Vital Signs/Intake and Output Vital Signs (last 24 hours): Temp Pulse Resp BP Pulse Ox 97.6 F 90 20 105/64 95 04/28/18 16:31 04/28/18 16:31 04/28/18 16:31 04/28/18 16:31 04/28/18 16:31 Intake and Output: 04/28/18 04/29/18 18:59 06:59 Intake Total 800 Balance 800 - Medications Medications: Current Medications Amlodipine Besylate (Norvasc) 10 mg PO DAILY [facility] Last Admin: 04/28/18 09:53 Dose: 10 mg Aspirin (Ecotrin) 81 mg PO DAILY [facility] Last Admin: 04/28/18 09:54 Dose: 81 mg Atorvastatin Calcium (Lipitor) 20 mg PO DIN [facility] Last Admin: 04/28/18 17:20 Dose: 20 mg Citalopram Hydrobromide (Celexa) 10 mg PO DAILY [facility] Last Admin: 04/28/18 09:54 Dose: 10 mg Folic Acid (Folic Acid) 1 mg PO DAILY [facility] Last Admin: 04/28/18 09:54 Dose: 1 mg Insulin Human Regular (Humulin R Low) 0 units SC [facility] PRN Reason: Protocol Last Admin: 04/28/18 21:15 Dose: Not Given Lisinopril (Zestril) 10 mg PO DAILY [facility] Last Admin: 04/28/18 09:54 Dose: 10 mg Metformin HCl (Glucophage) 500 mg PO BID [facility] Last Admin: 04/28/18 17:20 Dose: 500 mg Multivitamins/Minerals (Therapeutic-M Tab) 1 tab PO 0800 [facility] Last Admin: 04/28/18 09:53 Dose: 1 tab Polyethylene Glycol (Miralax) 17 gm PO BID [facility] Last Admin: 04/28/18 17:20 Dose: 17 gm Thiamine HCl (Vitamin B1 Tab) 100 mg PO DAILY [facility] Last Admin: 04/28/18 09:54 Dose: 100 mg - Labs Labs: 04/25/18 06:00 04/25/18 06:00 PT 12.5 SECONDS (9.4-12.5) 12/09/17 10:00 INR 1.09 (0.93-1.08) H 12/09/17 10:00 APTT 28.3 Seconds (25.1-36.5) 11/30/17 05:30 - Constitutional Appears: Chronically Ill - Head Exam Head Exam: NORMAL INSPECTION - Neck Exam Neck Exam: absent: Meningismus - Respiratory Exam Respiratory Exam: Decreased Breath Sounds - Cardiovascular Exam Cardiovascular Exam: +S1, +S2 - GI/Abdominal Exam GI & Abdominal Exam: Soft. absent: Tenderness Assessment and Plan - Assessment and Plan (Free Text) Plan: Assessment S/P sepsis due to strep viridans and CoNS bacteremia from right gluteal and back cellulitis S/P multifocal HCAP on top of Influenza A infection S/P Sammie infection of sacral area as well peripheral vascular disease Plan continue to monitor clinically off antibiotics since he is at risk for healthcare-associated infections
[2018-04-30] MEDS: Insulin Reg-LOW-Coverage SC SCH ×4 (08:01→21:45)
[2018-04-30] MEDS: Multivitamin With Minerals Tab PO SCH (08:27)
--- NOTE | 2018-04-30 09:45 | CP.PCM.PN ---
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 Pt. seen at bedside this AM; no complaints reported overnight. Resting in bed this morning, comfortable. No BM reported this AM yet; last BM 1 day ago. Clinically unchanged; at baseline. Nursing reported c/o N/V this AM. 12 point ROS negative. Objective - Vital Signs/Intake and Output Vital Signs (last 24 hours): Temp Pulse Resp BP Pulse Ox 97.6 F 87 20 115/72 97 04/30/18 08:01 04/30/18 08:01 04/30/18 08:01 04/30/18 08:01 04/30/18 08:01 Intake and Output: 04/30/18 04/30/18 06:59 18:59 Intake Total 540 Balance 540 - Medications Medications: Current Medications Amlodipine Besylate (Norvasc) 10 mg PO DAILY [facility] Last Admin: 04/29/18 09:21 Dose: 10 mg Aspirin (Ecotrin) 81 mg PO DAILY [facility] Last Admin: 04/29/18 09:21 Dose: 81 mg Atorvastatin Calcium (Lipitor) 20 mg PO DIN [facility] Last Admin: 04/29/18 17:05 Dose: 20 mg Citalopram Hydrobromide (Celexa) 10 mg PO DAILY [facility] Last Admin: 04/29/18 09:21 Dose: 10 mg Folic Acid (Folic Acid) 1 mg PO DAILY [facility] Last Admin: 04/29/18 09:21 Dose: 1 mg Insulin Human Regular (Humulin R Low) 0 units SC [facility] PRN Reason: Protocol Last Admin: 04/30/18 08:01 Dose: Not Given Lisinopril (Zestril) 10 mg PO DAILY [facility] Last Admin: 04/29/18 09:22 Dose: 10 mg Metformin HCl (Glucophage) 500 mg PO BID [facility] Last Admin: 04/29/18 17:05 Dose: 500 mg Multivitamins/Minerals (Therapeutic-M Tab) 1 tab PO 0800 [facility] Last Admin: 04/30/18 08:27 Dose: 1 tab Polyethylene Glycol (Miralax) 17 gm PO BID [facility] Last Admin: 04/29/18 17:05 Dose: 17 gm Thiamine HCl (Vitamin B1 Tab) 100 mg PO DAILY [facility] Last Admin: 04/29/18 09:22 Dose: 100 mg - Labs Labs: 04/25/18 06:00 04/25/18 06:00 PT 12.5 SECONDS (9.4-12.5) 12/09/17 10:00 INR 1.09 (0.93-1.08) H 12/09/17 10:00 APTT 28.3 Seconds (25.1-36.5) 11/30/17 05:30 Physical Exam - Constitutional Appears: Well, Non-toxic, No Acute Distress - Head Exam Head Exam: ATRAUMATIC, NORMOCEPHALIC - Eye Exam Eye Exam: EOMI, PERRL. absent: Scleral icterus - ENT Exam ENT Exam: Mucous Membranes Moist - Respiratory Exam Respiratory Exam: Clear to Ausculation Bilateral, NORMAL BREATHING PATTERN. absent: Rhonchi, Wheezes - Cardiovascular Exam Cardiovascular Exam: RRR, +S1, +S2 - GI/Abdominal Exam GI & Abdominal Exam: Soft, Normal Bowel Sounds. absent: Tenderness - Extremities Exam Extremities Exam: absent: Pedal Edema Additional comments: 2+ TP/DP BL; 2-3CM crusted ulcer on dorsal aspec of R foot. No surrounding erythema; no discharge. - Neurological Exam Neurological Exam: Alert, Awake Additional comments: AAOx1 - Psychiatric Exam Additional comments: Flat affect; Short 1-2 word answers; At baseline Assessment and Plan - Assessment and Plan (Free Text) Assessment: 57 year old male unknown PMHx admitted for AMS, right hip cellulitis, multifocal pneumonia, influenza A, strep viridians bacteremia with findings of stroke on MRI - acute vs. 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 Patient was treated for bacteremia with IV abx. Patient continues to refuse testing at this time. Guardianship establishment pending court date 05/05. Plan: 1. Altered mental status Remains at baseline this AM; no change in clinical presentation. Cont delirium precautions PT -patient refusing to participate Cont ASA 81 QD / LIPITOR 20 QD 2. Right Foot Ulcer 2x2cm well crusted ulcer w/ no excoriation or discharge appreciated on R foot Wound care following, appreciate reccs 3. Coag negative Staphylococcus bacteremia - resolved Last bld clx negative 12/04/17 with completion of 6 week course of antibiotics Monitor WBC, ESR, CRP weekly Echocardiogram unable to rule out vegetations, family is unavailable for consent for TAHIR 4. Colonic mass CT Abd/Pelvis showing colonic mass and hepatic lesions GI consulted: follow recs Flex sig/colonoscopy refused by patient at this time Family unable to be contacted for consent 5. Diabetes mellitus type 2 Cont RISS low Cont Metformin 500mg BID Cont accuchecks Carb consistent diet 6. HTN SBP Staple Cont Lisinopril 10 QD Cont Amlodipine 10 mg PO QD Stable, continue to monitor 7. Affective disorder Cont Celexa 10mg PO Daily 8. Constipation Having appropriate BMs; will restart colace 100 BID as needed. 9. Intermittent nausea/ Vomitting On and off episodes nausea/ vomiting every 3-5 days; always 1-2 episodes of NBNB per nursing. PRN Zofran onboard 10. Hx EtOH Abuse Cont Thiamine Cont Folic Acid Cont Multivitamin 11. Stage 1 decubitus ulcer-resolved DVT Prophylaxis: SCDs Dispo: Patient continues to display a lack of decision making capacity: Guardianship status to be determined; Court date for guardianship scheduled on Patient was seen and examined and case was discussed at length with attending Dr. Schumacher. 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 - PAGER [phone] <Deanna Schumacher - Last Filed: 05/01/18 13:06> Objective - Vital Signs/Intake and Output Vital Signs (last 24 hours): Temp Pulse Resp BP Pulse Ox 97 F L 81 19 122/79 99 05/01/18 07:53 05/01/18 09:18 05/01/18 07:53 05/01/18 09:19 05/01/18 07:53 Intake and Output: 05/01/18 05/01/18 06:59 18:59 Intake Total 660 Balance 660 - Medications Medications: Current Medications Amlodipine Besylate (Norvasc) 10 mg PO DAILY [facility] Last Admin: 05/01/18 09:19 Dose: 10 mg Aspirin (Ecotrin) 81 mg PO DAILY [facility] Last Admin: 05/01/18 09:18 Dose: 81 mg Atorvastatin Calcium (Lipitor) 20 mg PO DIN [facility] Last Admin: 04/30/18 17:44 Dose: 20 mg Citalopram Hydrobromide (Celexa) 10 mg PO DAILY [facility] Last Admin: 05/01/18 09:18 Dose: 10 mg Docusate Sodium (Colace) 100 mg PO BID [facility] Folic Acid (Folic Acid) 1 mg PO DAILY [facility] Last Admin: 05/01/18 09:18 Dose: 1 mg Insulin Human Regular (Humulin R Low) 0 units SC [facility] PRN Reason: Protocol Last Admin: 05/01/18 09:27 Dose: Not Given Lisinopril (Zestril) 10 mg PO DAILY [facility] Last Admin: 05/01/18 09:18 Dose: 10 mg Metformin HCl (Glucophage) 500 mg PO BID [facility] Last Admin: 05/01/18 09:18 Dose: 500 mg Multivitamins/Minerals (Therapeutic-M Tab) 1 tab PO 0800 [facility] Last Admin: 05/01/18 09:18 Dose: 1 tab Ondansetron HCl (Zofran Tab) 4 mg PO Q8H PRN PRN Reason: Nausea/Vomiting Last Admin: 04/30/18 12:44 Dose: 4 mg Polyethylene Glycol (Miralax) 17 gm PO BID [facility] Last Admin: 05/01/18 09:19 Dose: 17 gm Thiamine HCl (Vitamin B1 Tab) 100 mg PO DAILY [facility] Last Admin: 05/01/18 09:18 Dose: 100 mg - Labs Labs: 04/25/18 06:00 04/25/18 06:00 PT 12.5 SECONDS (9.4-12.5) 12/09/17 10:00 INR 1.09 (0.93-1.08) H 12/09/17 10:00 APTT 28.3 Seconds (25.1-36.5) 11/30/17 05:30 Attending/Attestation - Attestation I have personally seen and examined this patient.: Yes I have fully participated in the care of the patient.: Yes I have reviewed all pertinent clinical information, including history, physical exam and plan: Yes Notes (Text): 05/01/18 13:04 Medical record note made by the resident after discussion with my direction and input after the patient was personally seen and examined by me. I have reviewed the chart and agree that the record accurately reflects by personal performance of the history, physical exam, data review, and medical decision-making, in the course for the patient. I have also personally directed the plan of care. 57 yrs old male , S/P sepsis due to strep viridans and cogulase negative staph bacteremia from right gluteal and back cellulitis, S/P multifocal HCAP treatment on top of Influenza A infection and S/P Sammie infection of sacral area as well. Mental status is at base line, Patient is awaiting for placement. Prognosis is guarded.
[2018-04-30] MEDS: POLYETHYLENE GLYCOL 3350 17 GM/Dose PACKET PO SCH ×2 (10:58→17:44)
--- NOTE | 2018-04-30 12:37 | CP.PCM.PN ---
Subjective - Date & Time of Evaluation Date of Evaluation: 04/29/18 Time of Evaluation: 10:45 - Subjective Subjective: Not in distress, no fevers. Objective - Vital Signs/Intake and Output Vital Signs (last 24 hours): Temp Pulse Resp BP Pulse Ox 97.7 F 93 H 20 103/63 95 04/29/18 17:31 04/29/18 17:31 04/29/18 17:31 04/29/18 17:31 04/29/18 17:31 Intake and Output: 04/29/18 04/30/18 18:59 06:59 Intake Total 800 540 Balance 800 540 - Medications Medications: Current Medications Amlodipine Besylate (Norvasc) 10 mg PO DAILY [facility] Last Admin: 04/29/18 09:21 Dose: 10 mg Aspirin (Ecotrin) 81 mg PO DAILY [facility] Last Admin: 04/29/18 09:21 Dose: 81 mg Atorvastatin Calcium (Lipitor) 20 mg PO DIN [facility] Last Admin: 04/29/18 17:05 Dose: 20 mg Citalopram Hydrobromide (Celexa) 10 mg PO DAILY [facility] Last Admin: 04/29/18 09:21 Dose: 10 mg Folic Acid (Folic Acid) 1 mg PO DAILY [facility] Last Admin: 04/29/18 09:21 Dose: 1 mg Insulin Human Regular (Humulin R Low) 0 units SC [facility] PRN Reason: Protocol Last Admin: 04/29/18 21:53 Dose: Not Given Lisinopril (Zestril) 10 mg PO DAILY [facility] Last Admin: 04/29/18 09:22 Dose: 10 mg Metformin HCl (Glucophage) 500 mg PO BID [facility] Last Admin: 04/29/18 17:05 Dose: 500 mg Multivitamins/Minerals (Therapeutic-M Tab) 1 tab PO 0800 [facility] Last Admin: 04/29/18 09:21 Dose: 1 tab Polyethylene Glycol (Miralax) 17 gm PO BID [facility] Last Admin: 04/29/18 17:05 Dose: 17 gm Thiamine HCl (Vitamin B1 Tab) 100 mg PO DAILY [facility] Last Admin: 04/29/18 09:22 Dose: 100 mg - Labs Labs: 04/25/18 06:00 04/25/18 06:00 PT 12.5 SECONDS (9.4-12.5) 12/09/17 10:00 INR 1.09 (0.93-1.08) H 12/09/17 10:00 APTT 28.3 Seconds (25.1-36.5) 11/30/17 05:30 - Constitutional Appears: Chronically Ill - Head Exam Head Exam: NORMAL INSPECTION - Respiratory Exam Respiratory Exam: Decreased Breath Sounds - Cardiovascular Exam Cardiovascular Exam: +S1, +S2 - GI/Abdominal Exam GI & Abdominal Exam: Soft. absent: Tenderness Assessment and Plan - Assessment and Plan (Free Text) Plan: Assessment S/P sepsis due to strep viridans and CoNS bacteremia from right gluteal and back cellulitis S/P multifocal HCAP on top of Influenza A infection S/P Sammie infection of sacral area as well peripheral vascular disease Plan continue to monitor clinically off antibiotics since he is at risk for nosocomial infections
[2018-05-01] MEDS: Multivitamin With Minerals Tab PO SCH (09:18)
[2018-05-01] MEDS: POLYETHYLENE GLYCOL 3350 17 GM/Dose PACKET PO SCH ×2 (09:19→17:06)
[2018-05-01] MEDS: Insulin Reg-LOW-Coverage SC SCH ×4 (09:27→21:39)
--- NOTE | 2018-05-01 12:22 | CP.PCM.PN ---
<Mariano Morin - Last Filed: 05/01/18 12:17> Subjective - Date & Time of Evaluation Date of Evaluation: 05/01/18 Time of Evaluation: 12:17 - Subjective Subjective: Mariano Morin DO - PGY1 Internal Medicine Adoption Specialist - Medicine Progress Note Pt. seen this AM at bedside, resting comfortable. No acute events overnight. Pt. had episode of N/V yesterday however has not had any events reported by nursing today. Per nursing patient has not had any BM yesterday or today; will add on colace. 12 point ROS otherwise negative; Pt. is at mentally and clinically at baseline. Objective - Vital Signs/Intake and Output Vital Signs (last 24 hours): Temp Pulse Resp BP Pulse Ox 97 F L 81 19 122/79 99 05/01/18 07:53 05/01/18 09:18 05/01/18 07:53 05/01/18 09:19 05/01/18 07:53 Intake and Output: 05/01/18 05/01/18 06:59 18:59 Intake Total 660 Balance 660 - Medications Medications: Current Medications Amlodipine Besylate (Norvasc) 10 mg PO DAILY [facility] Last Admin: 05/01/18 09:19 Dose: 10 mg Aspirin (Ecotrin) 81 mg PO DAILY [facility] Last Admin: 05/01/18 09:18 Dose: 81 mg Atorvastatin Calcium (Lipitor) 20 mg PO DIN [facility] Last Admin: 04/30/18 17:44 Dose: 20 mg Citalopram Hydrobromide (Celexa) 10 mg PO DAILY [facility] Last Admin: 05/01/18 09:18 Dose: 10 mg Docusate Sodium (Colace) 100 mg PO BID [facility] Folic Acid (Folic Acid) 1 mg PO DAILY [facility] Last Admin: 05/01/18 09:18 Dose: 1 mg Insulin Human Regular (Humulin R Low) 0 units SC ACHS [facility] PRN Reason: Protocol Last Admin: 05/01/18 09:27 Dose: Not Given Lisinopril (Zestril) 10 mg PO DAILY [facility] Last Admin: 05/01/18 09:18 Dose: 10 mg Metformin HCl (Glucophage) 500 mg PO BID [facility] Last Admin: 05/01/18 09:18 Dose: 500 mg Multivitamins/Minerals (Therapeutic-M Tab) 1 tab PO 0800 [facility] Last Admin: 05/01/18 09:18 Dose: 1 tab Ondansetron HCl (Zofran Tab) 4 mg PO Q8H PRN PRN Reason: Nausea/Vomiting Last Admin: 04/30/18 12:44 Dose: 4 mg Polyethylene Glycol (Miralax) 17 gm PO BID [facility] Last Admin: 05/01/18 09:19 Dose: 17 gm Thiamine HCl (Vitamin B1 Tab) 100 mg PO DAILY [facility] Last Admin: 05/01/18 09:18 Dose: 100 mg - Labs Labs: 04/25/18 06:00 04/25/18 06:00 PT 12.5 SECONDS (9.4-12.5) 12/09/17 10:00 INR 1.09 (0.93-1.08) H 12/09/17 10:00 APTT 28.3 Seconds (25.1-36.5) 11/30/17 05:30 Physical Exam - Constitutional Appears: Well, Non-toxic, No Acute Distress - Head Exam Head Exam: ATRAUMATIC, NORMOCEPHALIC - Eye Exam Eye Exam: EOMI, PERRL. absent: Scleral icterus - ENT Exam ENT Exam: Mucous Membranes Moist - Respiratory Exam Respiratory Exam: Clear to Ausculation Bilateral, NORMAL BREATHING PATTERN. absent: Rhonchi, Wheezes - Cardiovascular Exam Cardiovascular Exam: RRR, +S1, +S2 - GI/Abdominal Exam GI & Abdominal Exam: Soft, Normal Bowel Sounds. absent: Tenderness - Extremities Exam Extremities Exam: absent: Pedal Edema Additional comments: 2+ TP/DP BL; 2-3CM crusted ulcer on dorsal aspec of R foot. No surrounding erythema; no discharge. - Neurological Exam Neurological Exam: Alert, Awake Additional comments: AAOx1 - Psychiatric Exam Additional comments: Flat affect; Short 1-2 word answers; At baseline Assessment and Plan - Assessment and Plan (Free Text) Assessment: 57 year old male unknown PMHx admitted for AMS, right hip cellulitis, multifocal pneumonia, influenza A, strep viridians bacteremia with findings of stroke on MRI - acute vs. 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 Patient was treated for bacteremia with IV abx. Patient continues to refuse testing at this time. Guardianship establishment pending court date 05/05. Plan: 1. Altered mental status Patient's mental status appears to be at baseline this AM; AAOx1 on evaluation ; does not appear. Cont delirium precautions PT -patient refusing to participate Cont ASA 81 QD / LIPITOR 20 QD 2. Right Foot Ulcer Crusted ulcer appreciated on R foot; approx 2 cm; no discharge or erythema around wound; appears to be healing well. Wound care consulted; appreciate reccs 3. Coag negative Staphylococcus bacteremia - resolved Last bld clx negative 12/04/17 with completion of 6 week course of antibiotics Monitor WBC, ESR, CRP weekly Echocardiogram unable to rule out vegetations, family is unavailable for consent for TAHIR 4. Colonic mass CT Abd/Pelvis showing colonic mass and hepatic lesions GI consulted: follow recs Flex sig/colonoscopy refused by patient at this time Family unable to be contacted for consent 5. Diabetes mellitus type 2 Cont RISS low Cont Metformin 500mg BID Cont accuchecks Carb consistent diet 6. HTN SBP Staple Cont Lisinopril 10 QD Cont Amlodipine 10 mg PO QD Stable, continue to monitor 7. Affective disorder Cont Celexa 10mg PO Daily 8. Constipation Colace 100mg BID Miralax 17gm BID 9. Hx EtOH Abuse Cont Thiamine Cont Folic Acid Cont Multivitamin 10. Stage 1 decubitus ulcer-resolved DVT Prophylaxis: SCDs Dispo: Patient continues to display a lack of decision making capacity: Guardianship status to be determined; Court date for guardianship scheduled on Patient was seen and examined and case was discussed at length with attending Dr. Schumacher. Mariano Morin DO - PGY1 [employer] - [phone] <Deanna Schumacher - Last Filed: 05/02/18 16:55> Objective - Vital Signs/Intake and Output Vital Signs (last 24 hours): Temp Pulse Resp BP Pulse Ox 97.9 F 84 18 128/76 95 05/02/18 08:11 05/02/18 10:25 05/02/18 08:11 05/02/18 10:25 05/02/18 08:11 Intake and Output: 05/02/18 05/02/18 06:59 18:59 Intake Total 720 840 Balance 720 840 - Medications Medications: Current Medications Amlodipine Besylate (Norvasc) 10 mg PO DAILY [facility] Last Admin: 05/02/18 10:25 Dose: 10 mg Aspirin (Ecotrin) 81 mg PO DAILY [facility] Last Admin: 05/02/18 10:24 Dose: 81 mg Atorvastatin Calcium (Lipitor) 20 mg PO DIN [facility] Last Admin: 05/01/18 17:02 Dose: 20 mg Citalopram Hydrobromide (Celexa) 10 mg PO DAILY [facility] Last Admin: 05/02/18 10:25 Dose: 10 mg Docusate Sodium (Colace) 100 mg PO BID [facility] Last Admin: 05/02/18 10:24 Dose: 100 mg Folic Acid (Folic Acid) 1 mg PO DAILY [facility] Last Admin: 05/02/18 10:26 Dose: 1 mg Insulin Human Regular (Humulin R Low) 0 units SC [facility] PRN Reason: Protocol Last Admin: 05/02/18 16:25 Dose: Not Given Lactulose (Enulose) 20 gm PO DAILY [facility] Lisinopril (Zestril) 10 mg PO DAILY [facility] Last Admin: 05/02/18 10:25 Dose: 10 mg Metformin HCl (Glucophage) 500 mg PO BID [facility] Last Admin: 05/02/18 10:26 Dose: 500 mg Multivitamins/Minerals (Therapeutic-M Tab) 1 tab PO 0800 [facility] Last Admin: 05/02/18 10:26 Dose: 1 tab Ondansetron HCl (Zofran Tab) 4 mg PO Q8H PRN PRN Reason: Nausea/Vomiting Last Admin: 04/30/18 12:44 Dose: 4 mg Polyethylene Glycol (Miralax) 17 gm PO BID [facility] Last Admin: 05/02/18 10:26 Dose: 17 gm Thiamine HCl (Vitamin B1 Tab) 100 mg PO DAILY [facility] Last Admin: 05/02/18 10:27 Dose: 100 mg - Labs Labs: 04/25/18 06:00 04/25/18 06:00 PT 12.5 SECONDS (9.4-12.5) 12/09/17 10:00 INR 1.09 (0.93-1.08) H 12/09/17 10:00 APTT 28.3 Seconds (25.1-36.5) 11/30/17 05:30 Attending/Attestation - Attestation I have personally seen and examined this patient.: Yes I have fully participated in the care of the patient.: Yes I have reviewed all pertinent clinical information, including history, physical exam and plan: Yes Notes (Text): 05/02/18 16:54 Medical record note made by the resident after discussion with my direction and input after the patient was personally seen and examined by me. I have reviewed the chart and agree that the record accurately reflects by personal performance of the history, physical exam, data review, and medical decision-making, in the course for the patient. I have also personally directed the plan of care. 57 yrs old male , S/P sepsis due to strep viridans and CoNS bacteremia from right gluteal and back cellulitis, S/P multifocal HCAP on top of Influenza A infection and S/P Sammie infection of sacral area as well. Mental status is at base line, Patient is awaiting for placement. Prognosis is guarded.
--- NOTE | 2018-05-01 16:13 | CP.PCM.PN ---
Subjective - Date & Time of Evaluation Date of Evaluation: 05/01/18 Time of Evaluation: 10:50 - Subjective Subjective: Afebrile, comfortable. Objective - Vital Signs/Intake and Output Vital Signs (last 24 hours): Temp Pulse Resp BP Pulse Ox 97.5 F L 97 H 18 105/64 94 L 04/30/18 17:10 04/30/18 17:10 04/30/18 17:10 04/30/18 17:10 04/30/18 17:10 Intake and Output: 05/01/18 05/01/18 06:59 18:59 Intake Total 660 Balance 660 - Medications Medications: Current Medications Amlodipine Besylate (Norvasc) 10 mg PO DAILY [facility] Last Admin: 04/30/18 10:58 Dose: 10 mg Aspirin (Ecotrin) 81 mg PO DAILY [facility] Last Admin: 04/30/18 10:58 Dose: 81 mg Atorvastatin Calcium (Lipitor) 20 mg PO DIN [facility] Last Admin: 04/30/18 17:44 Dose: 20 mg Citalopram Hydrobromide (Celexa) 10 mg PO DAILY [facility] Last Admin: 04/30/18 10:58 Dose: 10 mg Folic Acid (Folic Acid) 1 mg PO DAILY [facility] Last Admin: 04/30/18 10:58 Dose: 1 mg Insulin Human Regular (Humulin R Low) 0 units SC ACHS [facility] PRN Reason: Protocol Last Admin: 04/30/18 21:45 Dose: Not Given Lisinopril (Zestril) 10 mg PO DAILY [facility] Last Admin: 04/30/18 10:57 Dose: 10 mg Metformin HCl (Glucophage) 500 mg PO BID [facility] Last Admin: 04/30/18 17:44 Dose: 500 mg Multivitamins/Minerals (Therapeutic-M Tab) 1 tab PO 0800 [facility] Last Admin: 04/30/18 08:27 Dose: 1 tab Ondansetron HCl (Zofran Tab) 4 mg PO Q8H PRN PRN Reason: Nausea/Vomiting Last Admin: 04/30/18 12:44 Dose: 4 mg Polyethylene Glycol (Miralax) 17 gm PO BID [facility] Last Admin: 04/30/18 17:44 Dose: 17 gm Thiamine HCl (Vitamin B1 Tab) 100 mg PO DAILY [facility] Last Admin: 04/30/18 10:58 Dose: 100 mg - Labs Labs: 04/25/18 06:00 04/25/18 06:00 PT 12.5 SECONDS (9.4-12.5) 12/09/17 10:00 INR 1.09 (0.93-1.08) H 12/09/17 10:00 APTT 28.3 Seconds (25.1-36.5) 11/30/17 05:30 - Constitutional Appears: Non-toxic, Chronically Ill - Head Exam Head Exam: NORMAL INSPECTION - Respiratory Exam Respiratory Exam: Decreased Breath Sounds - Cardiovascular Exam Cardiovascular Exam: +S1, +S2 - GI/Abdominal Exam GI & Abdominal Exam: Soft. absent: Tenderness Assessment and Plan - Assessment and Plan (Free Text) Plan: Assessment S/P sepsis due to strep viridans and CoNS bacteremia from right gluteal and back cellulitis S/P multifocal HCAP on top of Influenza A infection S/P Sammie infection of sacral area as well peripheral vascular disease Plan continue to monitor clinically off antibiotics since he is at risk for hospital- acquired infections
[2018-05-02] MEDS: Insulin Reg-LOW-Coverage SC SCH ×4 (09:04→22:29)
[2018-05-02] MEDS: POLYETHYLENE GLYCOL 3350 17 GM/Dose PACKET PO SCH ×2 (10:26→17:45)
[2018-05-02] MEDS: Multivitamin With Minerals Tab PO SCH (10:26)
--- NOTE | 2018-05-02 14:32 | CP.PCM.PN ---
<Rohit Chisholm - Last Filed: 05/02/18 14:28> Subjective - Date & Time of Evaluation Date of Evaluation: 05/02/18 Time of Evaluation: 07:00 - Subjective Subjective: Rohit Chisholm PGY-1 Progress Note for Hospitalist Service 57 year old M was seen resting comfortably in bed. No acute events overnight per nursing but did report a bowel movement. Nursing denied any bowel movement since Wednesday. Patient on colace. Objective - Vital Signs/Intake and Output Vital Signs (last 24 hours): Temp Pulse Resp BP Pulse Ox 97.9 F 84 18 128/76 95 05/02/18 08:11 05/02/18 10:25 05/02/18 08:11 05/02/18 10:25 05/02/18 08:11 Intake and Output: 05/02/18 05/02/18 06:59 18:59 Intake Total 720 Balance 720 - Medications Medications: Current Medications Amlodipine Besylate (Norvasc) 10 mg PO DAILY [facility] Last Admin: 05/02/18 10:25 Dose: 10 mg Aspirin (Ecotrin) 81 mg PO DAILY [facility] Last Admin: 05/02/18 10:24 Dose: 81 mg Atorvastatin Calcium (Lipitor) 20 mg PO DIN [facility] Last Admin: 05/01/18 17:02 Dose: 20 mg Citalopram Hydrobromide (Celexa) 10 mg PO DAILY [facility] Last Admin: 05/02/18 10:25 Dose: 10 mg Docusate Sodium (Colace) 100 mg PO BID [facility] Last Admin: 05/02/18 10:24 Dose: 100 mg Folic Acid (Folic Acid) 1 mg PO DAILY [facility] Last Admin: 05/02/18 10:26 Dose: 1 mg Insulin Human Regular (Humulin R Low) 0 units SC [facility] PRN Reason: Protocol Last Admin: 05/02/18 09:04 Dose: Not Given Lisinopril (Zestril) 10 mg PO DAILY [facility] Last Admin: 05/02/18 10:25 Dose: 10 mg Metformin HCl (Glucophage) 500 mg PO BID [facility] Last Admin: 05/02/18 10:26 Dose: 500 mg Multivitamins/Minerals (Therapeutic-M Tab) 1 tab PO 0800 [facility] Last Admin: 05/02/18 10:26 Dose: 1 tab Ondansetron HCl (Zofran Tab) 4 mg PO Q8H PRN PRN Reason: Nausea/Vomiting Last Admin: 04/30/18 12:44 Dose: 4 mg Polyethylene Glycol (Miralax) 17 gm PO BID [facility] Last Admin: 05/02/18 10:26 Dose: 17 gm Thiamine HCl (Vitamin B1 Tab) 100 mg PO DAILY [facility] Last Admin: 05/02/18 10:27 Dose: 100 mg - Labs Labs: 04/25/18 06:00 04/25/18 06:00 PT 12.5 SECONDS (9.4-12.5) 12/09/17 10:00 INR 1.09 (0.93-1.08) H 12/09/17 10:00 APTT 28.3 Seconds (25.1-36.5) 11/30/17 05:30 - Constitutional Appears: Well - Head Exam Head Exam: ATRAUMATIC, NORMAL INSPECTION, NORMOCEPHALIC - Eye Exam Eye Exam: EOMI, Normal appearance. absent: Nystagmus Pupil Exam: NORMAL ACCOMODATION, PERRL - ENT Exam ENT Exam: Mucous Membranes Moist - Neck Exam Neck Exam: Full ROM - Respiratory Exam Respiratory Exam: Clear to Ausculation Bilateral. absent: Rales, Wheezes - Cardiovascular Exam Cardiovascular Exam: REGULAR RHYTHM, +S1, +S2 - GI/Abdominal Exam GI & Abdominal Exam: Normal Bowel Sounds. absent: Distended, Organomegaly, Rebound - Extremities Exam Additional comments: 3 CM crusted ulcer on dorsal aspect of R foot. No surrounding erythema or julia blood; no discharge. - Neurological Exam Neurological Exam: Awake Additional comments: Patient gave short responses without explanations to questions. - Skin Skin Exam: Dry Assessment and Plan - Assessment and Plan (Free Text) Assessment: 57 year old male unknown PMHx admitted for AMS, right hip cellulitis, multifocal pneumonia, influenza A, strep viridians bacteremia with findings of stroke on MRI - acute vs. 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 Patient was treated for bacteremia with IV abx. Patient continues to refuse testing at this time. Guardianship establishment pending court date 05/05. 1. Altered mental status Patient's mental status appears to be at baseline this AM; AAOx1 on evaluation ; does not appear. Cont delirium precautions PT -patient refusing to participate Cont ASA 81 QD / LIPITOR 20 QD 2. Right Foot Ulcer Grew since yesterday per nursing. No julia blood or inflammation noted. Wound care following Started medihoney 3. Coag negative Staphylococcus bacteremia - resolved Last bld clx negative 12/04/17 with completion of 6 week course of antibiotics Monitor WBC, ESR, CRP weekly Echocardiogram unable to rule out vegetations, family is unavailable for consent for TAHIR 4. Colonic mass CT Abd/Pelvis showing colonic mass and hepatic lesions GI consulted: follow recs Flex sig/colonoscopy refused by patient at this time Family unable to be contacted for consent 5. Diabetes mellitus type 2 Cont RISS low Cont Metformin 500mg BID Cont accuchecks Carb consistent diet 6. HTN SBP Staple Cont Lisinopril 10 QD Cont Amlodipine 10 mg PO QD Stable, continue to monitor 7. Affective disorder Cont Celexa 10mg PO Daily 8. Constipation Colace 100mg BID Miralax 17gm BID 9. Hx EtOH Abuse Cont Thiamine Cont Folic Acid Cont Multivitamin 10. Stage 1 decubitus ulcer- resolved DVT Prophylaxis: SCDs Dispo: Patient continues to display a lack of decision making capacity: Guardianship status to be determined; Court date for guardianship scheduled on <Deanna Schumacher - Last Filed: 05/02/18 16:57> Objective - Vital Signs/Intake and Output Vital Signs (last 24 hours): Temp Pulse Resp BP Pulse Ox 97.9 F 84 18 128/76 95 05/02/18 08:11 05/02/18 10:25 05/02/18 08:11 05/02/18 10:25 05/02/18 08:11 Intake and Output: 05/02/18 05/02/18 06:59 18:59 Intake Total 720 840 Balance 720 840 - Medications Medications: Current Medications Amlodipine Besylate (Norvasc) 10 mg PO DAILY [facility] Last Admin: 05/02/18 10:25 Dose: 10 mg Aspirin (Ecotrin) 81 mg PO DAILY [facility] Last Admin: 05/02/18 10:24 Dose: 81 mg Atorvastatin Calcium (Lipitor) 20 mg PO DIN [facility] Last Admin: 05/01/18 17:02 Dose: 20 mg Citalopram Hydrobromide (Celexa) 10 mg PO DAILY [facility] Last Admin: 05/02/18 10:25 Dose: 10 mg Docusate Sodium (Colace) 100 mg PO BID [facility] Last Admin: 05/02/18 10:24 Dose: 100 mg Folic Acid (Folic Acid) 1 mg PO DAILY [facility] Last Admin: 05/02/18 10:26 Dose: 1 mg Insulin Human Regular (Humulin R Low) 0 units SC ACHS [facility] PRN Reason: Protocol Last Admin: 05/02/18 16:25 Dose: Not Given Lactulose (Enulose) 20 gm PO DAILY [facility] Lisinopril (Zestril) 10 mg PO DAILY [facility] Last Admin: 05/02/18 10:25 Dose: 10 mg Metformin HCl (Glucophage) 500 mg PO BID [facility] Last Admin: 05/02/18 10:26 Dose: 500 mg Multivitamins/Minerals (Therapeutic-M Tab) 1 tab PO 0800 [facility] Last Admin: 05/02/18 10:26 Dose: 1 tab Ondansetron HCl (Zofran Tab) 4 mg PO Q8H PRN PRN Reason: Nausea/Vomiting Last Admin: 04/30/18 12:44 Dose: 4 mg Polyethylene Glycol (Miralax) 17 gm PO BID [facility] Last Admin: 05/02/18 10:26 Dose: 17 gm Thiamine HCl (Vitamin B1 Tab) 100 mg PO DAILY [facility] Last Admin: 05/02/18 10:27 Dose: 100 mg - Labs Labs: 04/25/18 06:00 04/25/18 06:00 PT 12.5 SECONDS (9.4-12.5) 12/09/17 10:00 INR 1.09 (0.93-1.08) H 12/09/17 10:00 APTT 28.3 Seconds (25.1-36.5) 11/30/17 05:30 Attending/Attestation - Attestation I have personally seen and examined this patient.: Yes I have fully participated in the care of the patient.: Yes I have reviewed all pertinent clinical information, including history, physical exam and plan: Yes Notes (Text): 05/02/18 16:56 Patient was seen and examined with medical insurance claims specialist. 57 yrs old male , S/P sepsis due to strep viridans and CoNS bacteremia from right gluteal and back cellulitis, S/P multifocal HCAP on top of Influenza A infection and S/P Sammie infection of sacral area as well. Mental status is at base line, Patient is awaiting for placement. Prognosis is guarded.
--- NOTE | 2018-05-02 15:50 | CP.PCM.PN ---
Subjective - Date & Time of Evaluation Date of Evaluation: 05/02/18 Time of Evaluation: 11:15 - Subjective Subjective: Not in distress, no fevers overnight. Objective - Vital Signs/Intake and Output Vital Signs (last 24 hours): Temp Pulse Resp BP Pulse Ox 97.9 F 84 18 128/76 95 05/02/18 08:11 05/02/18 10:25 05/02/18 08:11 05/02/18 10:25 05/02/18 08:11 Intake and Output: 05/02/18 05/02/18 06:59 18:59 Intake Total 720 Balance 720 - Medications Medications: Current Medications Amlodipine Besylate (Norvasc) 10 mg PO DAILY [facility] Last Admin: 05/02/18 10:25 Dose: 10 mg Aspirin (Ecotrin) 81 mg PO DAILY [facility] Last Admin: 05/02/18 10:24 Dose: 81 mg Atorvastatin Calcium (Lipitor) 20 mg PO DIN [facility] Last Admin: 05/01/18 17:02 Dose: 20 mg Citalopram Hydrobromide (Celexa) 10 mg PO DAILY [facility] Last Admin: 05/02/18 10:25 Dose: 10 mg Docusate Sodium (Colace) 100 mg PO BID [facility] Last Admin: 05/02/18 10:24 Dose: 100 mg Folic Acid (Folic Acid) 1 mg PO DAILY [facility] Last Admin: 05/02/18 10:26 Dose: 1 mg Insulin Human Regular (Humulin R Low) 0 units SC ACHS [facility] PRN Reason: Protocol Last Admin: 05/02/18 09:04 Dose: Not Given Lisinopril (Zestril) 10 mg PO DAILY [facility] Last Admin: 05/02/18 10:25 Dose: 10 mg Metformin HCl (Glucophage) 500 mg PO BID [facility] Last Admin: 05/02/18 10:26 Dose: 500 mg Multivitamins/Minerals (Therapeutic-M Tab) 1 tab PO 0800 [facility] Last Admin: 05/02/18 10:26 Dose: 1 tab Ondansetron HCl (Zofran Tab) 4 mg PO Q8H PRN PRN Reason: Nausea/Vomiting Last Admin: 04/30/18 12:44 Dose: 4 mg Polyethylene Glycol (Miralax) 17 gm PO BID [facility] Last Admin: 05/02/18 10:26 Dose: 17 gm Thiamine HCl (Vitamin B1 Tab) 100 mg PO DAILY [facility] Last Admin: 05/02/18 10:27 Dose: 100 mg - Labs Labs: 04/25/18 06:00 04/25/18 06:00 PT 12.5 SECONDS (9.4-12.5) 12/09/17 10:00 INR 1.09 (0.93-1.08) H 12/09/17 10:00 APTT 28.3 Seconds (25.1-36.5) 11/30/17 05:30 - Constitutional Appears: Chronically Ill - Head Exam Head Exam: NORMAL INSPECTION - Respiratory Exam Respiratory Exam: Decreased Breath Sounds - Cardiovascular Exam Cardiovascular Exam: +S1, +S2 - GI/Abdominal Exam GI & Abdominal Exam: Soft. absent: Tenderness Assessment and Plan - Assessment and Plan (Free Text) Plan: Assessment S/P sepsis due to strep viridans and CoNS bacteremia from right gluteal and back cellulitis S/P multifocal HCAP on top of Influenza A infection S/P Sammie infection of sacral area as well peripheral vascular disease Plan continue to monitor clinically off antibiotics since he is at risk for healthcare-associated infections
[2018-05-03 06:32] LABS: BASO # 0.02 K/mm3 (0.0-2.0); BASO % 0.2 % (0.0-3.0); EOS # 0.2 (0.0-0.7); EOS % 1.5 % (1.5-5.0); GRAN # 6.59 (1.4-6.5); GRAN % 63.8 % (50.0-68.0); HEMOGLOBIN 10.7 g/dL (14.0-18.0); LYMPH # 2.5 (1.2-3.4); LYMPH % 24.4 % (22.0-35.0); MEAN CELL VOLUME 79.5 fl (80.0-105.0); MEAN CORPUSCULAR HEMOGLOBIN 25.8 pg (25.0-35.0); MEAN CORPUSCULAR HGB CONC 32.4 g/dl (31.0-37.0); MEAN PLATELET VOLUME 9.2 fl (7.0-11.0); MONO # 1.1 (0.1-0.6); MONO % 10.1 % (1.0-6.0); RBC 4.15 10^6/uL (3.5-6.1); WHITE BLOOD COUNT 10.4 10^3/ul (4.5-11.0)
--- NOTE | 2018-05-03 07:25 | CP.PCM.PN ---
<Rohit Chisholm - Last Filed: 05/03/18 14:57> Subjective - Date & Time of Evaluation Date of Evaluation: 05/03/18 Time of Evaluation: 06:30 - Subjective Subjective: Rohit Chisholm PGY-1 Progress Note for Hospitalist Service Patient seen and examined at bedside. No acute events overnight. Denies Chest pain, shortness of breath, abdominal pain, and any specific complaints. Patient' s right dorsal foot ulcer has some sloughing superficially- no julia blood. Objective - Vital Signs/Intake and Output Vital Signs (last 24 hours): Temp Pulse Resp BP Pulse Ox 97.6 F 92 H 20 103/64 93 L 05/02/18 18:00 05/02/18 18:00 05/02/18 18:00 05/02/18 18:00 05/02/18 18:00 Intake and Output: 05/03/18 05/03/18 06:59 18:59 Intake Total 640 Balance 640 - Medications Medications: Current Medications Amlodipine Besylate (Norvasc) 10 mg PO DAILY [facility] Last Admin: 05/02/18 10:25 Dose: 10 mg Aspirin (Ecotrin) 81 mg PO DAILY [facility] Last Admin: 05/02/18 10:24 Dose: 81 mg Atorvastatin Calcium (Lipitor) 20 mg PO DIN [facility] Last Admin: 05/02/18 17:45 Dose: 20 mg Citalopram Hydrobromide (Celexa) 10 mg PO DAILY [facility] Last Admin: 05/02/18 10:25 Dose: 10 mg Docusate Sodium (Colace) 100 mg PO BID [facility] Last Admin: 05/02/18 17:45 Dose: 100 mg Folic Acid (Folic Acid) 1 mg PO DAILY [facility] Last Admin: 05/02/18 10:26 Dose: 1 mg Insulin Human Regular (Humulin R Low) 0 units SC [facility] PRN Reason: Protocol Last Admin: 05/02/18 22:29 Dose: Not Given Lactulose (Enulose) 20 gm PO DAILY [facility] Lisinopril (Zestril) 10 mg PO DAILY [facility] Last Admin: 05/02/18 10:25 Dose: 10 mg Metformin HCl (Glucophage) 500 mg PO BID [facility] Last Admin: 05/02/18 17:45 Dose: 500 mg Multivitamins/Minerals (Therapeutic-M Tab) 1 tab PO 0800 [facility] Last Admin: 05/02/18 10:26 Dose: 1 tab Ondansetron HCl (Zofran Tab) 4 mg PO Q8H PRN PRN Reason: Nausea/Vomiting Last Admin: 04/30/18 12:44 Dose: 4 mg Polyethylene Glycol (Miralax) 17 gm PO BID [facility] Last Admin: 05/02/18 17:45 Dose: 17 gm Thiamine HCl (Vitamin B1 Tab) 100 mg PO DAILY [facility] Last Admin: 05/02/18 10:27 Dose: 100 mg - Labs Labs: 05/03/18 05:45 04/25/18 06:00 PT 12.5 SECONDS (9.4-12.5) 12/09/17 10:00 INR 1.09 (0.93-1.08) H 12/09/17 10:00 APTT 28.3 Seconds (25.1-36.5) 11/30/17 05:30 - Constitutional Appears: Well, No Acute Distress - Head Exam Head Exam: ATRAUMATIC, NORMAL INSPECTION, NORMOCEPHALIC - Eye Exam Eye Exam: EOMI, PERRL Pupil Exam: NORMAL ACCOMODATION, PERRL - ENT Exam ENT Exam: Mucous Membranes Moist, Normal Exam - Neck Exam Neck Exam: Normal Inspection - Respiratory Exam Respiratory Exam: Decreased Breath Sounds, Clear to Ausculation Bilateral. absent: Rales, Rhonchi, Wheezes - Cardiovascular Exam Cardiovascular Exam: REGULAR RHYTHM, +S1, +S2. absent: JVD - GI/Abdominal Exam GI & Abdominal Exam: Soft, Normal Bowel Sounds. absent: Rigid, Tenderness, Mass , Rebound - Extremities Exam Extremities Exam: absent: Calf Tenderness Additional comments: 3 cm ulcer proximal dorsal aspect of R foot- some dry skin noted superficially - Neurological Exam Neurological Exam: Alert, Awake - Psychiatric Exam Psychiatric exam: Anxious Assessment and Plan - Assessment and Plan (Free Text) Assessment: 57 year old male unknown PMHx admitted for AMS, right hip cellulitis, multifocal pneumonia, influenza A, strep viridians bacteremia with findings of stroke on MRI - acute vs. 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 Patient was treated for bacteremia with IV abx. Patient continues to refuse testing at this time. Guardianship establishment pending court date 05/05. 1. Altered mental status Patient's mental status appears to be at baseline this AM; AAOx1 on evaluation. Cont. delirium precautions PT -patient refusing to participate Cont ASA 81 QD / LIPITOR 20 QD 2. Right Foot Ulcer Podiatry recommendations appreciated Grew since yesterday per nursing. No julia blood or inflammation noted. Wound care following. Started medihoney 3. Coag negative Staphylococcus bacteremia - resolved Last bld clx negative 12/04/17 with completion of 6 week course of antibiotics Monitor WBC, ESR, CRP weekly Echocardiogram unable to rule out vegetations, family is unavailable for consent for TAHIR 4. Colonic mass CT Abd/Pelvis showing colonic mass and hepatic lesions GI consulted: follow recs Flex sig/colonoscopy refused by patient at this time Family unable to be contacted for consent 5. Diabetes mellitus type 2 Cont RISS low Cont Metformin 500mg BID Cont accuchecks Carb consistent diet 6. HTN SBP Staple Cont Lisinopril 10 QD Cont Amlodipine 10 mg PO QD Stable, continue to monitor 7. Affective disorder Cont Celexa 10mg PO Daily 8. Constipation Colace 100mg BID Miralax 17gm BID 9. Hx EtOH Abuse Cont Thiamine Cont Folic Acid Cont Multivitamin 10. Stage 1 decubitus ulcer- resolved DVT Prophylaxis: SCDs Dispo: Patient continues to display a lack of decision making capacity: Guardianship status to be determined; Court date for guardianship scheduled on Patient seen, case reviewed, and plan agreed upon with Dr. Galo. Rohit Chisholm, PGY-1 <Sixto Galo - Last Filed: 05/03/18 15:40> Objective - Vital Signs/Intake and Output Vital Signs (last 24 hours): Temp Pulse Resp BP Pulse Ox 97.9 F 91 H 20 116/77 96 05/03/18 08:15 05/03/18 10:15 05/03/18 08:15 05/03/18 10:15 05/03/18 08:15 Intake and Output: 05/03/18 05/03/18 06:59 18:59 Intake Total 640 850 Balance 640 850 - Medications Medications: Current Medications Amlodipine Besylate (Norvasc) 10 mg PO DAILY [facility] Last Admin: 05/03/18 10:15 Dose: 10 mg Aspirin (Ecotrin) 81 mg PO DAILY [facility] Last Admin: 05/03/18 10:14 Dose: 81 mg Atorvastatin Calcium (Lipitor) 20 mg PO DIN [facility] Last Admin: 05/02/18 17:45 Dose: 20 mg Citalopram Hydrobromide (Celexa) 10 mg PO DAILY [facility] Last Admin: 05/03/18 10:15 Dose: 10 mg Docusate Sodium (Colace) 100 mg PO BID [facility] Last Admin: 05/03/18 10:14 Dose: 100 mg Folic Acid (Folic Acid) 1 mg PO DAILY [facility] Last Admin: 05/03/18 10:15 Dose: 1 mg Insulin Human Regular (Humulin R Low) 0 units SC [facility] PRN Reason: Protocol Last Admin: 05/03/18 11:55 Dose: Not Given Lactulose (Enulose) 20 gm PO DAILY [facility] Last Admin: 05/03/18 10:14 Dose: 20 gm Lisinopril (Zestril) 10 mg PO DAILY [facility] Last Admin: 05/03/18 10:15 Dose: 10 mg Metformin HCl (Glucophage) 500 mg PO BID [facility] Last Admin: 05/03/18 10:15 Dose: 500 mg Multivitamins/Minerals (Therapeutic-M Tab) 1 tab PO 0800 [facility] Last Admin: 05/03/18 10:14 Dose: 1 tab Ondansetron HCl (Zofran Tab) 4 mg PO Q8H PRN PRN Reason: Nausea/Vomiting Last Admin: 04/30/18 12:44 Dose: 4 mg Polyethylene Glycol (Miralax) 17 gm PO BID [facility] Last Admin: 05/03/18 10:16 Dose: 17 gm Thiamine HCl (Vitamin B1 Tab) 100 mg PO DAILY [facility] Last Admin: 05/03/18 10:14 Dose: 100 mg - Labs Labs: 05/03/18 05:45 04/25/18 06:00 PT 12.5 SECONDS (9.4-12.5) 12/09/17 10:00 INR 1.09 (0.93-1.08) H 12/09/17 10:00 APTT 28.3 Seconds (25.1-36.5) 11/30/17 05:30 Attending/Attestation - Attestation I have personally seen and examined this patient.: Yes I have fully participated in the care of the patient.: Yes I have reviewed all pertinent clinical information, including history, physical exam and plan: Yes Notes (Text): 05/03/18 15:39 57 year old male who was admitted with altered mental status found to have CVA, bacteremia, right gluteal cellulitis and multifocal pneumonia. He is s/p antibiotics treatment. His mental status appears at his baseline. Podiatry consult requested for right dorsal foot superficial ulcer. Patient is currently pending court appointment this week. Awaiting for placement. Sixto Galo MD Hospitalist.
[2018-05-03] MEDS: Insulin Reg-LOW-Coverage SC SCH ×4 (08:09→22:07)
[2018-05-03] MEDS: Multivitamin With Minerals Tab PO SCH (10:14)
[2018-05-03] MEDS: POLYETHYLENE GLYCOL 3350 17 GM/Dose PACKET PO SCH ×2 (10:16→17:53)
--- NOTE | 2018-05-03 14:36 | CP.PCM.PN ---
<Kei Johnson - Last Filed: 05/03/18 16:27> Subjective - Date & Time of Evaluation Date of Evaluation: 05/03/18 Time of Evaluation: 16:27 - Subjective Subjective: Progress Note- Dr. Oakley/Dr. Davis 57 y.o male seen and evaluated at bedside for right foot wound and elongated nails x10. Patient is seen resting comfortably in bed, in NAD. Did not answer questions when asked. According to nurse ulceration to the right ankle has been there for months. Reports ulceration from compression stocking that were placed on. Objective - Vital Signs/Intake and Output Vital Signs (last 24 hours): Temp Pulse Resp BP Pulse Ox 97.9 F 91 H 20 116/77 96 05/03/18 08:15 05/03/18 10:15 05/03/18 08:15 05/03/18 10:15 05/03/18 08:15 Intake and Output: 05/03/18 05/03/18 06:59 18:59 Intake Total 640 850 Balance 640 850 - Medications Medications: Current Medications Amlodipine Besylate (Norvasc) 10 mg PO DAILY [facility] Last Admin: 05/03/18 10:15 Dose: 10 mg Aspirin (Ecotrin) 81 mg PO DAILY [facility] Last Admin: 05/03/18 10:14 Dose: 81 mg Atorvastatin Calcium (Lipitor) 20 mg PO DIN [facility] Last Admin: 05/02/18 17:45 Dose: 20 mg Citalopram Hydrobromide (Celexa) 10 mg PO DAILY [facility] Last Admin: 05/03/18 10:15 Dose: 10 mg Docusate Sodium (Colace) 100 mg PO BID [facility] Last Admin: 05/03/18 10:14 Dose: 100 mg Folic Acid (Folic Acid) 1 mg PO DAILY [facility] Last Admin: 05/03/18 10:15 Dose: 1 mg Insulin Human Regular (Humulin R Low) 0 units SC [facility] PRN Reason: Protocol Last Admin: 05/03/18 11:55 Dose: Not Given Lactulose (Enulose) 20 gm PO DAILY [facility] Last Admin: 05/03/18 10:14 Dose: 20 gm Lisinopril (Zestril) 10 mg PO DAILY [facility] Last Admin: 05/03/18 10:15 Dose: 10 mg Metformin HCl (Glucophage) 500 mg PO BID [facility] Last Admin: 05/03/18 10:15 Dose: 500 mg Multivitamins/Minerals (Therapeutic-M Tab) 1 tab PO 0800 [facility] Last Admin: 05/03/18 10:14 Dose: 1 tab Ondansetron HCl (Zofran Tab) 4 mg PO Q8H PRN PRN Reason: Nausea/Vomiting Last Admin: 04/30/18 12:44 Dose: 4 mg Polyethylene Glycol (Miralax) 17 gm PO BID [facility] Last Admin: 05/03/18 10:16 Dose: 17 gm Thiamine HCl (Vitamin B1 Tab) 100 mg PO DAILY [facility] Last Admin: 05/03/18 10:14 Dose: 100 mg - Labs Labs: 05/03/18 05:45 04/25/18 06:00 PT 12.5 SECONDS (9.4-12.5) 12/09/17 10:00 INR 1.09 (0.93-1.08) H 12/09/17 10:00 APTT 28.3 Seconds (25.1-36.5) 11/30/17 05:30 - Constitutional Appears: Well, Non-toxic, No Acute Distress - Extremities Exam Extremities Exam: absent: Calf Tenderness Additional comments: VASC: DP and PT faintly palpation, CFT delayed > 3 seconds x 10 digits, temperature gradient cool to cool NEURO: unable to perform DERM: ulceration noted to the anterior aspect of right ankle at the ankle joint measuring approximately 2 x 2 cm with overlying hypertropic scabbing overlying ulceration, depth appears to be superficial, no streaking, no drainage, no tunneling, no abscess, no lifting of the scab noted, no odor or drainage, no abscess or fluctanance noted - Neurological Exam Neurological Exam: Awake - Psychiatric Exam Psychiatric exam: Normal Affect, Normal Mood Assessment and Plan - Assessment and Plan (Free Text) Assessment: 57 y.o male seen for elongated nails x10 and right anterior ankle ulceration secondary to pressure-stable with no infection Plan: Patient examined and evaluated Discussed plan with attending Dr. Davis afebrile, absent leukocytosis Ulceration cleansed with saline solution Dressed with xeroform and optifoam Elongated nails x10 debrided to normal length and thickness without incident. Tolerated the procedure well without complications Will continue to follow while patient in house <Raciel Davis - Last Filed: 05/06/18 17:47> Objective - Vital Signs/Intake and Output Vital Signs (last 24 hours): Temp Pulse Resp BP Pulse Ox 97.1 F L 85 20 111/70 94 L 05/06/18 16:25 05/06/18 16:25 05/06/18 16:25 05/06/18 16:25 05/06/18 16:25 Intake and Output: 05/06/18 05/06/18 06:59 18:59 Intake Total 720 840 Balance 720 840 - Medications Medications: Current Medications Amlodipine Besylate (Norvasc) 10 mg PO DAILY [facility] Last Admin: 05/06/18 10:05 Dose: 10 mg Aspirin (Ecotrin) 81 mg PO DAILY [facility] Last Admin: 05/06/18 10:03 Dose: 81 mg Atorvastatin Calcium (Lipitor) 20 mg PO DIN [facility] Last Admin: 05/06/18 17:26 Dose: 20 mg Citalopram Hydrobromide (Celexa) 10 mg PO DAILY [facility] Last Admin: 05/06/18 10:02 Dose: 10 mg Collagenase (Santyl) 0 gm TOP DAILY [facility] Last Admin: 05/06/18 10:07 Dose: 1 applic Docusate Sodium (Colace) 100 mg PO BID [facility] Last Admin: 05/06/18 17:26 Dose: 100 mg Folic Acid (Folic Acid) 1 mg PO DAILY [facility] Last Admin: 05/06/18 10:04 Dose: 1 mg Insulin Human Regular (Humulin R Low) 0 units SC [facility] PRN Reason: Protocol Last Admin: 05/06/18 16:21 Dose: Not Given Lactulose (Enulose) 20 gm PO DAILY [facility] Last Admin: 05/06/18 10:03 Dose: 20 gm Lisinopril (Zestril) 10 mg PO DAILY [facility] Last Admin: 05/06/18 10:08 Dose: 10 mg Metformin HCl (Glucophage) 500 mg PO BID [facility] Last Admin: 05/06/18 17:26 Dose: 500 mg Multivitamins/Minerals (Therapeutic-M Tab) 1 tab PO 0800 [facility] Last Admin: 05/06/18 08:08 Dose: 1 tab Ondansetron HCl (Zofran Tab) 4 mg PO Q8H PRN PRN Reason: Nausea/Vomiting Last Admin: 04/30/18 12:44 Dose: 4 mg Polyethylene Glycol (Miralax) 17 gm PO BID [facility] Last Admin: 05/06/18 17:27 Dose: 17 gm Thiamine HCl (Vitamin B1 Tab) 100 mg PO DAILY [facility] Last Admin: 05/06/18 10:08 Dose: 100 mg - Labs Labs: 05/03/18 05:45 04/25/18 06:00 PT 12.5 SECONDS (9.4-12.5) 12/09/17 10:00 INR 1.09 (0.93-1.08) H 12/09/17 10:00 APTT 28.3 Seconds (25.1-36.5) 11/30/17 05:30 Attending/Attestation - Attestation I have personally seen and examined this patient.: Yes I have fully participated in the care of the patient.: Yes I have reviewed all pertinent clinical information, including history, physical exam and plan: Yes
--- NOTE | 2018-05-04 06:20 | CP.PCM.PN ---
<Rohit Chisholm - Last Filed: 05/04/18 10:43> Subjective - Date & Time of Evaluation Date of Evaluation: 05/04/18 Time of Evaluation: 06:18 - Subjective Subjective: Rohit Chisholm PGY-1 Progress Note for Hospitalist Service Patient was seen and evaluated at bedside. Patient admits to no acute events overnight. Denies CP, SOB, Abdominal pain. R foot ulcer present-nonpurulent and some pain per patient -with bandage intact. Objective - Vital Signs/Intake and Output Vital Signs (last 24 hours): Temp Pulse Resp BP Pulse Ox 97.6 F 83 20 110/65 92 L 05/03/18 16:55 05/03/18 16:55 05/03/18 16:55 05/03/18 16:55 05/03/18 16:55 Intake and Output: 05/03/18 05/04/18 18:59 06:59 Intake Total 850 600 Balance 850 600 - Medications Medications: Current Medications Amlodipine Besylate (Norvasc) 10 mg PO DAILY [facility] Last Admin: 05/03/18 10:15 Dose: 10 mg Aspirin (Ecotrin) 81 mg PO DAILY [facility] Last Admin: 05/03/18 10:14 Dose: 81 mg Atorvastatin Calcium (Lipitor) 20 mg PO DIN [facility] Last Admin: 05/03/18 17:53 Dose: 20 mg Citalopram Hydrobromide (Celexa) 10 mg PO DAILY [facility] Last Admin: 05/03/18 10:15 Dose: 10 mg Docusate Sodium (Colace) 100 mg PO BID [facility] Last Admin: 05/03/18 17:52 Dose: 100 mg Folic Acid (Folic Acid) 1 mg PO DAILY [facility] Last Admin: 05/03/18 10:15 Dose: 1 mg Insulin Human Regular (Humulin R Low) 0 units SC [facility] PRN Reason: Protocol Last Admin: 05/03/18 22:07 Dose: Not Given Lactulose (Enulose) 20 gm PO DAILY [facility] Last Admin: 05/03/18 10:14 Dose: 20 gm Lisinopril (Zestril) 10 mg PO DAILY [facility] Last Admin: 05/03/18 10:15 Dose: 10 mg Metformin HCl (Glucophage) 500 mg PO BID [facility] Last Admin: 05/03/18 17:53 Dose: 500 mg Multivitamins/Minerals (Therapeutic-M Tab) 1 tab PO 0800 [facility] Last Admin: 05/03/18 10:14 Dose: 1 tab Ondansetron HCl (Zofran Tab) 4 mg PO Q8H PRN PRN Reason: Nausea/Vomiting Last Admin: 04/30/18 12:44 Dose: 4 mg Polyethylene Glycol (Miralax) 17 gm PO BID [facility] Last Admin: 05/03/18 17:53 Dose: 17 gm Thiamine HCl (Vitamin B1 Tab) 100 mg PO DAILY [facility] Last Admin: 05/03/18 10:14 Dose: 100 mg - Labs Labs: 05/03/18 05:45 04/25/18 06:00 PT 12.5 SECONDS (9.4-12.5) 12/09/17 10:00 INR 1.09 (0.93-1.08) H 12/09/17 10:00 APTT 28.3 Seconds (25.1-36.5) 11/30/17 05:30 - Constitutional Appears: Well, No Acute Distress - Head Exam Head Exam: ATRAUMATIC, NORMOCEPHALIC - Eye Exam Eye Exam: EOMI, Normal appearance Pupil Exam: NORMAL ACCOMODATION, PERRL - ENT Exam ENT Exam: Mucous Membranes Moist, Normal Exam - Neck Exam Neck Exam: Full ROM, Normal Inspection - Respiratory Exam Respiratory Exam: Decreased Breath Sounds, Clear to Ausculation Bilateral - Cardiovascular Exam Cardiovascular Exam: REGULAR RHYTHM, +S1, +S2 - GI/Abdominal Exam GI & Abdominal Exam: Soft, Normal Bowel Sounds. absent: Tenderness - Extremities Exam Extremities Exam: absent: Calf Tenderness Additional comments: 3 cm ulcer with bandage intact. No blood or discharge present. - Neurological Exam Neurological Exam: Alert, Awake - Psychiatric Exam Psychiatric exam: Flat Affect - Skin Skin Exam: Dry, Intact (except for foot ulcer), Normal Color, Warm Assessment and Plan - Assessment and Plan (Free Text) Assessment: Mr. Montano 57 year old male unknown PMHx admitted for AMS, right hip cellulitis , multifocal pneumonia, influenza A, strep viridians bacteremia with findings of stroke on MRI - acute vs. 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 Patient was treated for bacteremia with IV abx. Guardianship establishment pending court date tomorrow. 1. Altered mental status Patient's mental status appears to be at baseline this AM; AAOx1 on evaluation. Cont. delirium precautions PT -patient refusing to participate Cont ASA 81 QD / LIPITOR 20 QD 2. Right Foot Ulcer Podiatry recommendations appreciated Grew since yesterday per nursing. No julia blood or inflammation noted. Wound care following. Started medihoney 3. Coag negative Staphylococcus bacteremia - resolved Last bld clx negative 12/04/17 with completion of 6 week course of antibiotics Monitor WBC, ESR, CRP weekly Echocardiogram unable to rule out vegetations, family is unavailable for consent for TAHIR 4. Colonic mass CT Abd/Pelvis showing colonic mass and hepatic lesions GI consulted: follow recs Flex sig/colonoscopy refused by patient at this time Family unable to be contacted for consent 5. Diabetes mellitus type 2 Cont RISS low Cont Metformin 500mg BID Cont accuchecks Carb consistent diet 6. HTN SBP Staple Cont Lisinopril 10 QD Cont Amlodipine 10 mg PO QD Stable, continue to monitor 7. Affective disorder Cont Celexa 10mg PO Daily 8. Constipation Colace 100mg BID Miralax 17gm BID 9. Hx EtOH Abuse Cont Thiamine Cont Folic Acid Cont Multivitamin DVT Prophylaxis: SCDs Dispo: Patient continues to display a lack of decision making capacity: Guardianship status to be determined; Court date for guardianship scheduled for tomorrow Patient seen, case reviewed, and plan agreed upon with Dr. Galo. Rohit Chisholm, PGY-1 <Sixto Galo - Last Filed: 05/04/18 11:57> Objective - Vital Signs/Intake and Output Vital Signs (last 24 hours): Temp Pulse Resp BP Pulse Ox 98.0 F 65 20 104/69 95 05/04/18 06:00 05/04/18 09:24 05/04/18 06:00 05/04/18 09:24 05/04/18 06:00 Intake and Output: 05/04/18 05/04/18 06:59 18:59 Intake Total 600 Balance 600 - Medications Medications: Current Medications Amlodipine Besylate (Norvasc) 10 mg PO DAILY [facility] Last Admin: 05/04/18 09:24 Dose: 10 mg Aspirin (Ecotrin) 81 mg PO DAILY [facility] Last Admin: 05/04/18 09:24 Dose: 81 mg Atorvastatin Calcium (Lipitor) 20 mg PO DIN [facility] Last Admin: 05/03/18 17:53 Dose: 20 mg Citalopram Hydrobromide (Celexa) 10 mg PO DAILY [facility] Last Admin: 05/04/18 09:24 Dose: 10 mg Collagenase (Santyl) 0 gm TOP DAILY [facility] Docusate Sodium (Colace) 100 mg PO BID [facility] Last Admin: 05/04/18 09:24 Dose: 100 mg Folic Acid (Folic Acid) 1 mg PO DAILY [facility] Last Admin: 05/04/18 09:24 Dose: 1 mg Insulin Human Regular (Humulin R Low) 0 units SC [facility] PRN Reason: Protocol Last Admin: 05/04/18 08:43 Dose: 1 units Lactulose (Enulose) 20 gm PO DAILY [facility] Last Admin: 05/04/18 09:24 Dose: 20 gm Lisinopril (Zestril) 10 mg PO DAILY [facility] Last Admin: 05/04/18 09:24 Dose: 10 mg Metformin HCl (Glucophage) 500 mg PO BID [facility] Last Admin: 05/04/18 09:24 Dose: 500 mg Multivitamins/Minerals (Therapeutic-M Tab) 1 tab PO 0800 [facility] Last Admin: 05/04/18 09:24 Dose: 1 tab Ondansetron HCl (Zofran Tab) 4 mg PO Q8H PRN PRN Reason: Nausea/Vomiting Last Admin: 04/30/18 12:44 Dose: 4 mg Polyethylene Glycol (Miralax) 17 gm PO BID [facility] Last Admin: 05/04/18 09:24 Dose: 17 gm Thiamine HCl (Vitamin B1 Tab) 100 mg PO DAILY [facility] Last Admin: 05/04/18 09:24 Dose: 100 mg - Labs Labs: 05/03/18 05:45 04/25/18 06:00 PT 12.5 SECONDS (9.4-12.5) 12/09/17 10:00 INR 1.09 (0.93-1.08) H 12/09/17 10:00 APTT 28.3 Seconds (25.1-36.5) 11/30/17 05:30 Attending/Attestation - Attestation I have personally seen and examined this patient.: Yes I have fully participated in the care of the patient.: Yes I have reviewed all pertinent clinical information, including history, physical exam and plan: Yes Notes (Text): 05/04/18 11:56 57 year old male who was admitted with altered mental status found to have CVA, bacteremia, right gluteal cellulitis and multifocal pneumonia. He is s/p antibiotics treatment. His mental status appears at his baseline. He appears comfortable this morning. Podiatry is following for ankle abrasion / ulceration. Patient is currently pending court appointment this week. Awaiting for placement. Sixto Galo MD Hospitalist.
[2018-05-04] MEDS: Insulin Reg-LOW-Coverage SC SCH ×4 (08:43→21:36)
[2018-05-04] MEDS: Multivitamin With Minerals Tab PO SCH (09:24)
[2018-05-04] MEDS: POLYETHYLENE GLYCOL 3350 17 GM/Dose PACKET PO SCH ×2 (09:24→17:04)
--- NOTE | 2018-05-04 11:01 | CP.PCM.PN ---
<Kei Johnson - Last Filed: 05/04/18 11:04> Subjective - Date & Time of Evaluation Date of Evaluation: 05/04/18 Time of Evaluation: 10:59 - Subjective Subjective: Progress Note- Dr. Oakley/Dr. Davis 57 y.o male seen and evaluated at bedside for right anterior ankle. Patient is seen resting comfortably in bed, in NAD. Does not respond to questions. Objective - Vital Signs/Intake and Output Vital Signs (last 24 hours): Temp Pulse Resp BP Pulse Ox 98.0 F 65 20 104/69 95 05/04/18 06:00 05/04/18 09:24 05/04/18 06:00 05/04/18 09:24 05/04/18 06:00 Intake and Output: 05/04/18 05/04/18 06:59 18:59 Intake Total 600 Balance 600 - Medications Medications: Current Medications Amlodipine Besylate (Norvasc) 10 mg PO DAILY [facility] Last Admin: 05/04/18 09:24 Dose: 10 mg Aspirin (Ecotrin) 81 mg PO DAILY [facility] Last Admin: 05/04/18 09:24 Dose: 81 mg Atorvastatin Calcium (Lipitor) 20 mg PO DIN [facility] Last Admin: 05/03/18 17:53 Dose: 20 mg Citalopram Hydrobromide (Celexa) 10 mg PO DAILY [facility] Last Admin: 05/04/18 09:24 Dose: 10 mg Docusate Sodium (Colace) 100 mg PO BID [facility] Last Admin: 05/04/18 09:24 Dose: 100 mg Folic Acid (Folic Acid) 1 mg PO DAILY [facility] Last Admin: 05/04/18 09:24 Dose: 1 mg Insulin Human Regular (Humulin R Low) 0 units SC [facility] PRN Reason: Protocol Last Admin: 05/04/18 08:43 Dose: 1 units Lactulose (Enulose) 20 gm PO DAILY [facility] Last Admin: 05/04/18 09:24 Dose: 20 gm Lisinopril (Zestril) 10 mg PO DAILY [facility] Last Admin: 05/04/18 09:24 Dose: 10 mg Metformin HCl (Glucophage) 500 mg PO BID [facility] Last Admin: 05/04/18 09:24 Dose: 500 mg Multivitamins/Minerals (Therapeutic-M Tab) 1 tab PO 0800 [facility] Last Admin: 05/04/18 09:24 Dose: 1 tab Ondansetron HCl (Zofran Tab) 4 mg PO Q8H PRN PRN Reason: Nausea/Vomiting Last Admin: 04/30/18 12:44 Dose: 4 mg Polyethylene Glycol (Miralax) 17 gm PO BID [facility] Last Admin: 05/04/18 09:24 Dose: 17 gm Thiamine HCl (Vitamin B1 Tab) 100 mg PO DAILY [facility] Last Admin: 05/04/18 09:24 Dose: 100 mg - Labs Labs: 05/03/18 05:45 04/25/18 06:00 PT 12.5 SECONDS (9.4-12.5) 12/09/17 10:00 INR 1.09 (0.93-1.08) H 12/09/17 10:00 APTT 28.3 Seconds (25.1-36.5) 11/30/17 05:30 - Constitutional Appears: Well, Non-toxic, No Acute Distress - Extremities Exam Extremities Exam: absent: Calf Tenderness Additional comments: VASC: DP and PT faintly palpation, CFT delayed > 3 seconds x 10 digits, temperature gradient cool to cool NEURO: unable to perform DERM: ulceration noted to the anterior aspect of right ankle at the ankle joint measuring approximately 2 x 2 cm with overlying hypertropic scabbing overlying ulceration, depth appears to be superficial, no streaking, no drainage, no tunneling, no abscess, no lifting of the scab noted, no odor or drainage, no abscess or fluctanance noted. Small superficial abrasion noted to the anterior aspect of left ankle. No streaking, no drainage, no tunneling, no abscess, no lifting of the scab noted, no odor or drainage, no abscess or fluctanance noted. ORTHO: no pain with palpation to the entire lower extremity - Neurological Exam Neurological Exam: Alert, Awake, Oriented x3 - Psychiatric Exam Psychiatric exam: Normal Affect, Normal Mood Assessment and Plan - Assessment and Plan (Free Text) Assessment: 57 y.o male with 1) right anterior ankle ulceration 2) left ankle superficial abrasion -stable, no infection Plan: Patient examined and evaluated Discussed plan with attending Dr. Oakley afebrile, absent leukocytosis Ulceration cleansed with saline solution and bath clothes Dressed with optifoam to left and right anterior ankle Will order Santyl for the right anterior ankle ulceration Will continue to follow while patient in house <Ivania Oakley - Last Filed: 05/08/18 16:46> Objective - Vital Signs/Intake and Output Vital Signs (last 24 hours): Temp Pulse Resp BP Pulse Ox 97.5 F L 82 16 115/72 95 05/08/18 06:00 05/08/18 09:55 05/08/18 06:00 05/08/18 09:55 05/08/18 06:00 Intake and Output: 05/08/18 05/08/18 06:59 18:59 Intake Total 1000 Balance 1000 - Medications Medications: Current Medications Amlodipine Besylate (Norvasc) 10 mg PO DAILY [facility] Last Admin: 05/08/18 09:54 Dose: 10 mg Aspirin (Ecotrin) 81 mg PO DAILY [facility] Last Admin: 05/08/18 09:56 Dose: 81 mg Atorvastatin Calcium (Lipitor) 20 mg PO DIN [facility] Last Admin: 05/07/18 17:05 Dose: 20 mg Citalopram Hydrobromide (Celexa) 10 mg PO DAILY [facility] Last Admin: 05/08/18 09:56 Dose: 10 mg Collagenase (Santyl) 0 gm TOP DAILY [facility] Last Admin: 05/08/18 10:03 Dose: Not Given Docusate Sodium (Colace) 100 mg PO BID [facility] Last Admin: 05/08/18 09:55 Dose: 100 mg Folic Acid (Folic Acid) 1 mg PO DAILY [facility] Last Admin: 05/08/18 09:55 Dose: 1 mg Insulin Human Regular (Humulin R Low) 0 units SC [facility] PRN Reason: Protocol Last Admin: 05/08/18 11:19 Dose: Not Given Lactulose (Enulose) 20 gm PO DAILY [facility] Last Admin: 05/08/18 09:54 Dose: 20 gm Lisinopril (Zestril) 10 mg PO DAILY [facility] Last Admin: 05/08/18 09:55 Dose: 10 mg Metformin HCl (Glucophage) 500 mg PO BID [facility] Last Admin: 05/08/18 09:55 Dose: 500 mg Multivitamins/Minerals (Therapeutic-M Tab) 1 tab PO 0800 [facility] Last Admin: 05/08/18 09:55 Dose: 1 tab Ondansetron HCl (Zofran Tab) 4 mg PO Q8H PRN PRN Reason: Nausea/Vomiting Last Admin: 04/30/18 12:44 Dose: 4 mg Polyethylene Glycol (Miralax) 17 gm PO BID [facility] Last Admin: 05/08/18 09:54 Dose: 17 gm Thiamine HCl (Vitamin B1 Tab) 100 mg PO DAILY [facility] Last Admin: 05/08/18 09:55 Dose: 100 mg - Labs Labs: 05/03/18 05:45 04/25/18 06:00 PT 12.5 SECONDS (9.4-12.5) 12/09/17 10:00 INR 1.09 (0.93-1.08) H 12/09/17 10:00 APTT 28.3 Seconds (25.1-36.5) 11/30/17 05:30 Attending/Attestation - Attestation I have personally seen and examined this patient.: Yes I have fully participated in the care of the patient.: Yes I have reviewed all pertinent clinical information, including history, physical exam and plan: Yes
[2018-05-04] MEDS: Collagenase 250 Units/gm Ointment(30 gm) TOP SCH (12:39)
--- NOTE | 2018-05-04 14:14 | CP.PCM.PN ---
Subjective - Date & Time of Evaluation Date of Evaluation: 05/04/18 Time of Evaluation: 10:20 - Subjective Subjective: Afebrile, not in distress. Objective - Vital Signs/Intake and Output Vital Signs (last 24 hours): Temp Pulse Resp BP Pulse Ox 98.0 F 65 20 104/69 95 05/04/18 06:00 05/04/18 09:24 05/04/18 06:00 05/04/18 09:24 05/04/18 06:00 Intake and Output: 05/04/18 05/04/18 06:59 18:59 Intake Total 600 Balance 600 - Medications Medications: Current Medications Amlodipine Besylate (Norvasc) 10 mg PO DAILY [facility] Last Admin: 05/04/18 09:24 Dose: 10 mg Aspirin (Ecotrin) 81 mg PO DAILY [facility] Last Admin: 05/04/18 09:24 Dose: 81 mg Atorvastatin Calcium (Lipitor) 20 mg PO DIN [facility] Last Admin: 05/03/18 17:53 Dose: 20 mg Citalopram Hydrobromide (Celexa) 10 mg PO DAILY [facility] Last Admin: 05/04/18 09:24 Dose: 10 mg Docusate Sodium (Colace) 100 mg PO BID [facility] Last Admin: 05/04/18 09:24 Dose: 100 mg Folic Acid (Folic Acid) 1 mg PO DAILY [facility] Last Admin: 05/04/18 09:24 Dose: 1 mg Insulin Human Regular (Humulin R Low) 0 units SC [facility] PRN Reason: Protocol Last Admin: 05/04/18 08:43 Dose: 1 units Lactulose (Enulose) 20 gm PO DAILY [facility] Last Admin: 05/04/18 09:24 Dose: 20 gm Lisinopril (Zestril) 10 mg PO DAILY [facility] Last Admin: 05/04/18 09:24 Dose: 10 mg Metformin HCl (Glucophage) 500 mg PO BID [facility] Last Admin: 05/04/18 09:24 Dose: 500 mg Multivitamins/Minerals (Therapeutic-M Tab) 1 tab PO 0800 [facility] Last Admin: 05/04/18 09:24 Dose: 1 tab Ondansetron HCl (Zofran Tab) 4 mg PO Q8H PRN PRN Reason: Nausea/Vomiting Last Admin: 04/30/18 12:44 Dose: 4 mg Polyethylene Glycol (Miralax) 17 gm PO BID [facility] Last Admin: 05/04/18 09:24 Dose: 17 gm Thiamine HCl (Vitamin B1 Tab) 100 mg PO DAILY [facility] Last Admin: 05/04/18 09:24 Dose: 100 mg - Labs Labs: 05/03/18 05:45 04/25/18 06:00 PT 12.5 SECONDS (9.4-12.5) 12/09/17 10:00 INR 1.09 (0.93-1.08) H 12/09/17 10:00 APTT 28.3 Seconds (25.1-36.5) 11/30/17 05:30 - Constitutional Appears: Chronically Ill - Head Exam Head Exam: NORMAL INSPECTION - ENT Exam ENT Exam: Mucous Membranes Moist - Neck Exam Neck Exam: absent: Meningismus - Respiratory Exam Respiratory Exam: Decreased Breath Sounds - Cardiovascular Exam Cardiovascular Exam: +S1, +S2 - GI/Abdominal Exam GI & Abdominal Exam: Soft. absent: Tenderness Assessment and Plan - Assessment and Plan (Free Text) Plan: Assessment S/P sepsis due to strep viridans and CoNS bacteremia from right gluteal and back cellulitis S/P multifocal HCAP on top of Influenza A infection S/P Sammie infection of sacral area as well peripheral vascular disease Plan continue to monitor clinically off antibiotics since he is at risk for nosocomial infections
[2018-05-05] MEDS: Insulin Reg-LOW-Coverage SC SCH ×4 (07:51→21:39)
[2018-05-05] MEDS: Collagenase 250 Units/gm Ointment(30 gm) TOP SCH (09:14)
[2018-05-05] MEDS: Multivitamin With Minerals Tab PO SCH (09:14)
[2018-05-05] MEDS: POLYETHYLENE GLYCOL 3350 17 GM/Dose PACKET PO SCH ×2 (09:14→17:08)
--- NOTE | 2018-05-05 13:00 | PN ---
DATE: 05/03/2018 SUBJECTIVE: The patient was seen earlier in the morning. In no acute distress, nontoxic. No fevers. PHYSICAL EXAMINATION: VITAL SIGNS: On exam, temperature is 98, blood pressure is 117/70, respiratory rate of 18. HEENT: Unremarkable. NECK: Supple. LUNGS: Have decreased breath sounds. HEART: Normal S1 and S2. ABDOMEN: Soft. LABORATORY DATA: The patient's labs are as noted. ASSESSMENT AND PLAN: This is a 57-year-old male, who has had a long hospital stay with status post sepsis, admitted, due to Streptococcus viridans and coag-negative staph bacteremia secondary to right gluteal and back cellulitis, developed multifocal healthcare-associated pneumonia on top of influenza A infection and alley infection of sacral area, and currently off of antibiotics and at risk of developing nosocomial infections. Daniel Torres MD
--- NOTE | 2018-05-05 13:09 | CP.PCM.PN ---
Subjective - Date & Time of Evaluation Date of Evaluation: 05/05/18 Time of Evaluation: 10:20 - Subjective Subjective: Not in distress, afebrile. Objective - Vital Signs/Intake and Output Vital Signs (last 24 hours): Temp Pulse Resp BP Pulse Ox 98 F 87 20 110/70 94 L 05/04/18 18:00 05/04/18 18:00 05/04/18 18:00 05/04/18 18:00 05/04/18 18:00 Intake and Output: 05/04/18 05/05/18 18:59 06:59 Intake Total 720 720 Balance 720 720 - Medications Medications: Current Medications Amlodipine Besylate (Norvasc) 10 mg PO DAILY [facility] Last Admin: 05/04/18 09:24 Dose: 10 mg Aspirin (Ecotrin) 81 mg PO DAILY [facility] Last Admin: 05/04/18 09:24 Dose: 81 mg Atorvastatin Calcium (Lipitor) 20 mg PO DIN [facility] Last Admin: 05/04/18 17:04 Dose: 20 mg Citalopram Hydrobromide (Celexa) 10 mg PO DAILY [facility] Last Admin: 05/04/18 09:24 Dose: 10 mg Collagenase (Santyl) 0 gm TOP DAILY [facility] Last Admin: 05/04/18 12:39 Dose: 1 applic Docusate Sodium (Colace) 100 mg PO BID [facility] Last Admin: 05/04/18 17:04 Dose: 100 mg Folic Acid (Folic Acid) 1 mg PO DAILY [facility] Last Admin: 05/04/18 09:24 Dose: 1 mg Insulin Human Regular (Humulin R Low) 0 units SC [facility] PRN Reason: Protocol Last Admin: 05/04/18 21:36 Dose: Not Given Lactulose (Enulose) 20 gm PO DAILY [facility] Last Admin: 05/04/18 09:24 Dose: 20 gm Lisinopril (Zestril) 10 mg PO DAILY [facility] Last Admin: 05/04/18 09:24 Dose: 10 mg Metformin HCl (Glucophage) 500 mg PO BID [facility] Last Admin: 05/04/18 17:04 Dose: 500 mg Multivitamins/Minerals (Therapeutic-M Tab) 1 tab PO 0800 [facility] Last Admin: 05/04/18 09:24 Dose: 1 tab Ondansetron HCl (Zofran Tab) 4 mg PO Q8H PRN PRN Reason: Nausea/Vomiting Last Admin: 04/30/18 12:44 Dose: 4 mg Polyethylene Glycol (Miralax) 17 gm PO BID [facility] Last Admin: 05/04/18 17:04 Dose: 17 gm Thiamine HCl (Vitamin B1 Tab) 100 mg PO DAILY [facility] Last Admin: 05/04/18 09:24 Dose: 100 mg - Labs Labs: 05/03/18 05:45 04/25/18 06:00 PT 12.5 SECONDS (9.4-12.5) 12/09/17 10:00 INR 1.09 (0.93-1.08) H 12/09/17 10:00 APTT 28.3 Seconds (25.1-36.5) 11/30/17 05:30 - Constitutional Appears: Chronically Ill - Head Exam Head Exam: NORMAL INSPECTION - Neck Exam Neck Exam: absent: Meningismus - Respiratory Exam Respiratory Exam: Decreased Breath Sounds - Cardiovascular Exam Cardiovascular Exam: +S1, +S2 - GI/Abdominal Exam GI & Abdominal Exam: Soft. absent: Tenderness Assessment and Plan - Assessment and Plan (Free Text) Plan: Assessment S/P sepsis due to strep viridans and CoNS bacteremia from right gluteal and back cellulitis S/P multifocal HCAP on top of Influenza A infection S/P Sammie infection of sacral area as well peripheral vascular disease Plan continue to monitor clinically off antibiotics since he is at risk for hospital- acquired infections
--- NOTE | 2018-05-05 16:43 | CP.PCM.PN ---
<Rohit Chisholm - Last Filed: 05/05/18 16:39> Subjective - Date & Time of Evaluation Date of Evaluation: 05/05/18 Time of Evaluation: 06:16 - Subjective Subjective: Rohit Chisholm PGY-1 Progress Note for Hospitalist Service Patient was seen and evaluated at bedside. Patient admits to no acute events overnight. Denies CP, SOB, Abdominal pain. R foot ulcer present-nonpurulent and no discharge-with bandage intact. Court date today. Objective - Vital Signs/Intake and Output Vital Signs (last 24 hours): Temp Pulse Resp BP Pulse Ox 98.1 F 88 20 100/67 97 05/05/18 16:35 05/05/18 16:35 05/05/18 16:35 05/05/18 16:35 05/05/18 16:35 Intake and Output: 05/05/18 05/05/18 06:59 18:59 Intake Total 720 840 Balance 720 840 - Medications Medications: Current Medications Amlodipine Besylate (Norvasc) 10 mg PO DAILY [facility] Last Admin: 05/05/18 09:14 Dose: 10 mg Aspirin (Ecotrin) 81 mg PO DAILY [facility] Last Admin: 05/05/18 09:14 Dose: 81 mg Atorvastatin Calcium (Lipitor) 20 mg PO DIN [facility] Last Admin: 05/04/18 17:04 Dose: 20 mg Citalopram Hydrobromide (Celexa) 10 mg PO DAILY [facility] Last Admin: 05/05/18 09:14 Dose: 10 mg Collagenase (Santyl) 0 gm TOP DAILY [facility] Last Admin: 05/05/18 09:14 Dose: 1 applic Docusate Sodium (Colace) 100 mg PO BID [facility] Last Admin: 05/05/18 09:14 Dose: 100 mg Folic Acid (Folic Acid) 1 mg PO DAILY [facility] Last Admin: 05/05/18 09:14 Dose: 1 mg Insulin Human Regular (Humulin R Low) 0 units SC [facility] PRN Reason: Protocol Last Admin: 05/05/18 16:18 Dose: Not Given Lactulose (Enulose) 20 gm PO DAILY [facility] Last Admin: 05/05/18 09:14 Dose: 20 gm Lisinopril (Zestril) 10 mg PO DAILY [facility] Last Admin: 05/05/18 09:14 Dose: 10 mg Metformin HCl (Glucophage) 500 mg PO BID [facility] Last Admin: 05/05/18 09:14 Dose: 500 mg Multivitamins/Minerals (Therapeutic-M Tab) 1 tab PO 0800 [facility] Last Admin: 05/05/18 09:14 Dose: 1 tab Ondansetron HCl (Zofran Tab) 4 mg PO Q8H PRN PRN Reason: Nausea/Vomiting Last Admin: 04/30/18 12:44 Dose: 4 mg Polyethylene Glycol (Miralax) 17 gm PO BID [facility] Last Admin: 05/05/18 09:14 Dose: 17 gm Thiamine HCl (Vitamin B1 Tab) 100 mg PO DAILY [facility] Last Admin: 05/05/18 09:15 Dose: 100 mg - Labs Labs: 05/03/18 05:45 04/25/18 06:00 PT 12.5 SECONDS (9.4-12.5) 12/09/17 10:00 INR 1.09 (0.93-1.08) H 12/09/17 10:00 APTT 28.3 Seconds (25.1-36.5) 11/30/17 05:30 - Constitutional Appears: Well, No Acute Distress - Head Exam Head Exam: ATRAUMATIC, NORMOCEPHALIC - Eye Exam Eye Exam: EOMI, Normal appearance Pupil Exam: NORMAL ACCOMODATION, PERRL - ENT Exam ENT Exam: Mucous Membranes Moist, Normal Exam - Neck Exam Neck Exam: Full ROM, Normal Inspection - Respiratory Exam Respiratory Exam: Decreased Breath Sounds, Clear to Ausculation Bilateral - Cardiovascular Exam Cardiovascular Exam: REGULAR RHYTHM, +S1, +S2 - GI/Abdominal Exam GI & Abdominal Exam: Soft, Normal Bowel Sounds. absent: Tenderness - Extremities Exam Extremities Exam: absent: Calf Tenderness Additional comments: 3 cm ulcer with bandage intact. No blood or discharge present. - Neurological Exam Neurological Exam: Alert, Awake - Psychiatric Exam Psychiatric exam: Flat Affect - Skin Skin Exam: Dry, Intact (except for foot ulcer), Normal Color, Warm Assessment and Plan - Assessment and Plan (Free Text) Assessment: Mr. Montano 57 year old male unknown PMHx admitted for AMS, right hip cellulitis , multifocal pneumonia, influenza A, strep viridians bacteremia with findings of stroke on MRI - acute vs. 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 Patient was treated for bacteremia with IV abx. Guardianship establishment pending court date today. 1. Altered mental status Patient's mental status appears to be at baseline this AM; AAOx1 on evaluation. Cont. delirium precautions PT -patient refusing to participate Cont ASA 81 QD / LIPITOR 20 QD 2. Right Foot Ulcer Podiatry recommendations appreciated Grew since yesterday per nursing. No julia blood or inflammation noted. Wound care following. Started medihoney 3. Coag negative Staphylococcus bacteremia - resolved Last bld clx negative 12/04/17 with completion of 6 week course of antibiotics Monitor WBC, ESR, CRP weekly Echocardiogram unable to rule out vegetations, family is unavailable for consent for TAHIR 4. Colonic mass CT Abd/Pelvis showing colonic mass and hepatic lesions GI consulted: follow recs Flex sig/colonoscopy refused by patient at this time Family unable to be contacted for consent 5. Diabetes mellitus type 2 Cont RISS low Cont Metformin 500mg BID Cont accuchecks Carb consistent diet 6. HTN SBP Staple Cont Lisinopril 10 QD Cont Amlodipine 10 mg PO QD Stable, continue to monitor 7. Affective disorder Cont Celexa 10mg PO Daily 8. Constipation Colace 100mg BID Miralax 17gm BID 9. Hx EtOH Abuse Cont Thiamine Cont Folic Acid Cont Multivitamin DVT Prophylaxis: SCDs Dispo: Patient continues to display a lack of decision making capacity: Guardianship status to be determined; Court date for guardianship today - will follow up tomorrow based on social work notes Patient seen, case reviewed, and plan agreed upon with Dr. Galo. Rohit Chisholm, PGY-1 <Sixto Galo - Last Filed: 05/05/18 18:06> Objective - Vital Signs/Intake and Output Vital Signs (last 24 hours): Temp Pulse Resp BP Pulse Ox 98.1 F 88 20 100/67 97 05/05/18 16:35 05/05/18 16:35 05/05/18 16:35 05/05/18 16:35 05/05/18 16:35 Intake and Output: 05/05/18 05/05/18 06:59 18:59 Intake Total 720 840 Balance 720 840 - Medications Medications: Current Medications Amlodipine Besylate (Norvasc) 10 mg PO DAILY [facility] Last Admin: 05/05/18 09:14 Dose: 10 mg Aspirin (Ecotrin) 81 mg PO DAILY [facility] Last Admin: 05/05/18 09:14 Dose: 81 mg Atorvastatin Calcium (Lipitor) 20 mg PO DIN [facility] Last Admin: 05/05/18 17:08 Dose: 20 mg Citalopram Hydrobromide (Celexa) 10 mg PO DAILY [facility] Last Admin: 05/05/18 09:14 Dose: 10 mg Collagenase (Santyl) 0 gm TOP DAILY [facility] Last Admin: 05/05/18 09:14 Dose: 1 applic Docusate Sodium (Colace) 100 mg PO BID [facility] Last Admin: 05/05/18 17:08 Dose: 100 mg Folic Acid (Folic Acid) 1 mg PO DAILY [facility] Last Admin: 05/05/18 09:14 Dose: 1 mg Insulin Human Regular (Humulin R Low) 0 units SC [facility] PRN Reason: Protocol Last Admin: 05/05/18 16:18 Dose: Not Given Lactulose (Enulose) 20 gm PO DAILY [facility] Last Admin: 05/05/18 09:14 Dose: 20 gm Lisinopril (Zestril) 10 mg PO DAILY [facility] Last Admin: 05/05/18 09:14 Dose: 10 mg Metformin HCl (Glucophage) 500 mg PO BID [facility] Last Admin: 05/05/18 17:09 Dose: 500 mg Multivitamins/Minerals (Therapeutic-M Tab) 1 tab PO 0800 [facility] Last Admin: 05/05/18 09:14 Dose: 1 tab Ondansetron HCl (Zofran Tab) 4 mg PO Q8H PRN PRN Reason: Nausea/Vomiting Last Admin: 04/30/18 12:44 Dose: 4 mg Polyethylene Glycol (Miralax) 17 gm PO BID [facility] Last Admin: 05/05/18 17:08 Dose: 17 gm Thiamine HCl (Vitamin B1 Tab) 100 mg PO DAILY [facility] Last Admin: 05/05/18 09:15 Dose: 100 mg - Labs Labs: 05/03/18 05:45 04/25/18 06:00 PT 12.5 SECONDS (9.4-12.5) 12/09/17 10:00 INR 1.09 (0.93-1.08) H 12/09/17 10:00 APTT 28.3 Seconds (25.1-36.5) 11/30/17 05:30 Attending/Attestation - Attestation I have personally seen and examined this patient.: Yes I have fully participated in the care of the patient.: Yes I have reviewed all pertinent clinical information, including history, physical exam and plan: Yes Notes (Text): 05/05/18 18:06 57 year old male who was admitted with altered mental status found to have CVA, bacteremia, right gluteal cellulitis and multifocal pneumonia. He is s/p antibiotics treatment. His mental status appears at his baseline. No new complaints this morning. He is pending court appointment today. Will follow up with medical social worker. Awaiting for placement. Sixto Galo MD Hospitalist.
--- NOTE | 2018-05-06 07:52 | CP.PCM.PN ---
<Rohit Chisholm - Last Filed: 05/06/18 15:20> Subjective - Date & Time of Evaluation Date of Evaluation: 05/06/18 Time of Evaluation: 06:15 - Subjective Subjective: Rohit Chisholm PGY-1 Progress Note for the Hospitalist Service Patient seen and evaluated at bedside. No acute complaints overnight. R foor ulcer bandaged and nonpainful. Denies CP, SOB, headache, and abdominal pain. Objective - Vital Signs/Intake and Output Vital Signs (last 24 hours): Temp Pulse Resp BP Pulse Ox 98 F 87 20 123/76 95 05/06/18 07:42 05/06/18 07:42 05/06/18 07:42 05/06/18 07:42 05/06/18 07:42 Intake and Output: 05/06/18 05/06/18 06:59 18:59 Intake Total 720 Balance 720 - Medications Medications: Current Medications Amlodipine Besylate (Norvasc) 10 mg PO DAILY [facility] Last Admin: 05/05/18 09:14 Dose: 10 mg Aspirin (Ecotrin) 81 mg PO DAILY [facility] Last Admin: 05/05/18 09:14 Dose: 81 mg Atorvastatin Calcium (Lipitor) 20 mg PO DIN [facility] Last Admin: 05/05/18 17:08 Dose: 20 mg Citalopram Hydrobromide (Celexa) 10 mg PO DAILY [facility] Last Admin: 05/05/18 09:14 Dose: 10 mg Collagenase (Santyl) 0 gm TOP DAILY [facility] Last Admin: 05/05/18 09:14 Dose: 1 applic Docusate Sodium (Colace) 100 mg PO BID [facility] Last Admin: 05/05/18 17:08 Dose: 100 mg Folic Acid (Folic Acid) 1 mg PO DAILY [facility] Last Admin: 05/05/18 09:14 Dose: 1 mg Insulin Human Regular (Humulin R Low) 0 units SC [facility] PRN Reason: Protocol Last Admin: 05/05/18 21:39 Dose: Not Given Lactulose (Enulose) 20 gm PO DAILY [facility] Last Admin: 05/05/18 09:14 Dose: 20 gm Lisinopril (Zestril) 10 mg PO DAILY [facility] Last Admin: 05/05/18 09:14 Dose: 10 mg Metformin HCl (Glucophage) 500 mg PO BID [facility] Last Admin: 05/05/18 17:09 Dose: 500 mg Multivitamins/Minerals (Therapeutic-M Tab) 1 tab PO 0800 [facility] Last Admin: 05/05/18 09:14 Dose: 1 tab Ondansetron HCl (Zofran Tab) 4 mg PO Q8H PRN PRN Reason: Nausea/Vomiting Last Admin: 04/30/18 12:44 Dose: 4 mg Polyethylene Glycol (Miralax) 17 gm PO BID [facility] Last Admin: 05/05/18 17:08 Dose: 17 gm Thiamine HCl (Vitamin B1 Tab) 100 mg PO DAILY [facility] Last Admin: 05/05/18 09:15 Dose: 100 mg - Labs Labs: 05/03/18 05:45 04/25/18 06:00 PT 12.5 SECONDS (9.4-12.5) 12/09/17 10:00 INR 1.09 (0.93-1.08) H 12/09/17 10:00 APTT 28.3 Seconds (25.1-36.5) 11/30/17 05:30 - Constitutional Appears: Well, No Acute Distress - Head Exam Head Exam: ATRAUMATIC, NORMOCEPHALIC - Eye Exam Eye Exam: EOMI, Normal appearance, PERRL Pupil Exam: NORMAL ACCOMODATION - ENT Exam ENT Exam: Normal Exam - Neck Exam Neck Exam: Normal Inspection - Respiratory Exam Respiratory Exam: Clear to Ausculation Bilateral, NORMAL BREATHING PATTERN - Cardiovascular Exam Cardiovascular Exam: RRR, +S1, +S2 - GI/Abdominal Exam GI & Abdominal Exam: Soft, Normal Bowel Sounds. absent: Tenderness - Extremities Exam Additional comments: R foot ulcer bandaged. No julia blood or discharge noted. - Psychiatric Exam Psychiatric exam: Flat Affect - Skin Skin Exam: Dry, Intact, Normal Color, Warm Assessment and Plan - Assessment and Plan (Free Text) Assessment: Mr. Montano is a 57 year old male unknown PMHx admitted for AMS, right hip cellulitis, multifocal pneumonia, influenza A, strep viridians bacteremia with findings of stroke on MRI - acute vs. 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 Patient was treated for bacteremia with IV abx. Guardianship establishment pending court date, which was rescheduled for early May. 1. Altered mental status Patient's mental status appears to be at baseline this AM; AAOx1 on evaluation. Cont. delirium precautions PT -patient refusing to participate Cont ASA 81 QD / LIPITOR 20 QD 2. Right Foot Ulcer Podiatry recommendations appreciated Grew since yesterday per nursing. No julia blood or inflammation noted. Wound care following. Started medihoney. 3. Coag negative Staphylococcus bacteremia - resolved Last bld clx negative 12/04/17 with completion of 6 week course of antibiotics Monitor WBC, ESR, CRP weekly Echocardiogram unable to rule out vegetations, family is unavailable for consent for TAHIR 4. Colonic mass CT Abd/Pelvis showing colonic mass and hepatic lesions GI consulted: follow recs Flex sig/colonoscopy refused by patient at this time Family unable to be contacted for consent 5. Diabetes mellitus type 2 Cont RISS low Cont Metformin 500mg BID Cont accuchecks Carb consistent diet 6. HTN SBP Staple Cont Lisinopril 10 QD Cont Amlodipine 10 mg PO QD Stable, continue to monitor 7. Affective disorder Cont Celexa 10mg PO Daily 8. Constipation Colace 100mg BID Miralax 17gm BID 9. Hx EtOH Abuse Cont Thiamine Cont Folic Acid Cont Multivitamin DVT Prophylaxis: SCDs Dispo: Patient continues to display a lack of decision making capacity: Guardianship status to be determined; Court date for guardianship postponed to early May. Patient seen, case reviewed, and plan agreed upon with Dr. Galo. Rohit Chisholm, PGY-1 <Sixto Galo - Last Filed: 05/06/18 16:06> Objective - Vital Signs/Intake and Output Vital Signs (last 24 hours): Temp Pulse Resp BP Pulse Ox 98 F 87 20 123/76 95 05/06/18 07:42 05/06/18 07:42 05/06/18 07:42 05/06/18 10:05 05/06/18 07:42 Intake and Output: 05/06/18 05/06/18 06:59 18:59 Intake Total 720 840 Balance 720 840 - Medications Medications: Current Medications Amlodipine Besylate (Norvasc) 10 mg PO DAILY [facility] Last Admin: 05/06/18 10:05 Dose: 10 mg Aspirin (Ecotrin) 81 mg PO DAILY [facility] Last Admin: 05/06/18 10:03 Dose: 81 mg Atorvastatin Calcium (Lipitor) 20 mg PO DIN [facility] Last Admin: 05/05/18 17:08 Dose: 20 mg Citalopram Hydrobromide (Celexa) 10 mg PO DAILY [facility] Last Admin: 05/06/18 10:02 Dose: 10 mg Collagenase (Santyl) 0 gm TOP DAILY [facility] Last Admin: 05/06/18 10:07 Dose: 1 applic Docusate Sodium (Colace) 100 mg PO BID [facility] Last Admin: 05/06/18 10:03 Dose: 100 mg Folic Acid (Folic Acid) 1 mg PO DAILY [facility] Last Admin: 05/06/18 10:04 Dose: 1 mg Insulin Human Regular (Humulin R Low) 0 units SC A[facility]S [facility] PRN Reason: Protocol Last Admin: 05/06/18 08:03 Dose: Not Given Lactulose (Enulose) 20 gm PO DAILY [facility] Last Admin: 05/06/18 10:03 Dose: 20 gm Lisinopril (Zestril) 10 mg PO DAILY [facility] Last Admin: 05/06/18 10:08 Dose: 10 mg Metformin HCl (Glucophage) 500 mg PO BID [facility] Last Admin: 05/06/18 10:04 Dose: 500 mg Multivitamins/Minerals (Therapeutic-M Tab) 1 tab PO 0800 [facility] Last Admin: 05/06/18 08:08 Dose: 1 tab Ondansetron HCl (Zofran Tab) 4 mg PO Q8H PRN PRN Reason: Nausea/Vomiting Last Admin: 04/30/18 12:44 Dose: 4 mg Polyethylene Glycol (Miralax) 17 gm PO BID [facility] Last Admin: 05/06/18 10:05 Dose: 17 gm Thiamine HCl (Vitamin B1 Tab) 100 mg PO DAILY [facility] Last Admin: 05/06/18 10:08 Dose: 100 mg - Labs Labs: 05/03/18 05:45 04/25/18 06:00 PT 12.5 SECONDS (9.4-12.5) 12/09/17 10:00 INR 1.09 (0.93-1.08) H 12/09/17 10:00 APTT 28.3 Seconds (25.1-36.5) 11/30/17 05:30 Attending/Attestation - Attestation I have personally seen and examined this patient.: Yes I have fully participated in the care of the patient.: Yes I have reviewed all pertinent clinical information, including history, physical exam and plan: Yes Notes (Text): 05/06/18 16:04 57 year old male who was admitted with altered mental status found to have CVA, bacteremia, right gluteal cellulitis and multifocal pneumonia. He is s/p antibiotics treatment. His mental status appears at his baseline. He is comfortable in bed this morning without any new complaints. glueline worker note was reviewed. Court date has been postponed to early next month. Sixto Galo MD Hospitalist.
[2018-05-06] MEDS: Insulin Reg-LOW-Coverage SC SCH ×4 (08:03→21:29)
[2018-05-06] MEDS: Multivitamin With Minerals Tab PO SCH (08:08)
[2018-05-06] MEDS: POLYETHYLENE GLYCOL 3350 17 GM/Dose PACKET PO SCH ×2 (10:05→17:27)
[2018-05-06] MEDS: Collagenase 250 Units/gm Ointment(30 gm) TOP SCH (10:07)
--- NOTE | 2018-05-06 13:48 | CP.PCM.PN ---
<Kei Johnson - Last Filed: 05/06/18 13:43> Subjective - Date & Time of Evaluation Date of Evaluation: 05/06/18 Time of Evaluation: 13:44 - Subjective Subjective: Progress Note- Dr. Oakley/Dr. Davis 57 y.o male seen and evaluated at bedside for right anterior ankle ulceration and left ankle abrasion. Patient is seen resting comfortably in bed enjoying breakfast and in NAD. Appears to be in a good mood this morning. Reports sleeping well. Denies of pain to the lower extremity. Denies any nausea, fever, shortness of breath, chest pains or chills. No other pedal complaints. Objective - Vital Signs/Intake and Output Vital Signs (last 24 hours): Temp Pulse Resp BP Pulse Ox 98 F 87 20 123/76 95 05/06/18 07:42 05/06/18 07:42 05/06/18 07:42 05/06/18 10:05 05/06/18 07:42 Intake and Output: 05/06/18 05/06/18 06:59 18:59 Intake Total 720 Balance 720 - Medications Medications: Current Medications Amlodipine Besylate (Norvasc) 10 mg PO DAILY [facility] Last Admin: 05/06/18 10:05 Dose: 10 mg Aspirin (Ecotrin) 81 mg PO DAILY [facility] Last Admin: 05/06/18 10:03 Dose: 81 mg Atorvastatin Calcium (Lipitor) 20 mg PO DIN [facility] Last Admin: 05/05/18 17:08 Dose: 20 mg Citalopram Hydrobromide (Celexa) 10 mg PO DAILY [facility] Last Admin: 05/06/18 10:02 Dose: 10 mg Collagenase (Santyl) 0 gm TOP DAILY [facility] Last Admin: 05/06/18 10:07 Dose: 1 applic Docusate Sodium (Colace) 100 mg PO BID [facility] Last Admin: 05/06/18 10:03 Dose: 100 mg Folic Acid (Folic Acid) 1 mg PO DAILY [facility] Last Admin: 05/06/18 10:04 Dose: 1 mg Insulin Human Regular (Humulin R Low) 0 units SC ACHS [facility] PRN Reason: Protocol Last Admin: 05/06/18 08:03 Dose: Not Given Lactulose (Enulose) 20 gm PO DAILY [facility] Last Admin: 05/06/18 10:03 Dose: 20 gm Lisinopril (Zestril) 10 mg PO DAILY [facility] Last Admin: 05/06/18 10:08 Dose: 10 mg Metformin HCl (Glucophage) 500 mg PO BID [facility] Last Admin: 05/06/18 10:04 Dose: 500 mg Multivitamins/Minerals (Therapeutic-M Tab) 1 tab PO 0800 [facility] Last Admin: 05/06/18 08:08 Dose: 1 tab Ondansetron HCl (Zofran Tab) 4 mg PO Q8H PRN PRN Reason: Nausea/Vomiting Last Admin: 04/30/18 12:44 Dose: 4 mg Polyethylene Glycol (Miralax) 17 gm PO BID [facility] Last Admin: 05/06/18 10:05 Dose: 17 gm Thiamine HCl (Vitamin B1 Tab) 100 mg PO DAILY [facility] Last Admin: 05/06/18 10:08 Dose: 100 mg - Labs Labs: 05/03/18 05:45 04/25/18 06:00 PT 12.5 SECONDS (9.4-12.5) 12/09/17 10:00 INR 1.09 (0.93-1.08) H 12/09/17 10:00 APTT 28.3 Seconds (25.1-36.5) 11/30/17 05:30 - Constitutional Appears: Well, Non-toxic, No Acute Distress - Extremities Exam Extremities Exam: absent: Calf Tenderness Additional comments: VASC: DP and PT faintly palpation, CFT delayed > 3 seconds x 10 digits, temperature gradient cool to cool, no edema noted to the lower extremity NEURO: gross sensation intact, protective sensation slightly diminished DERM: ulceration noted to the anterior aspect of right ankle at the level of the ankle joint measuring approximately 2 x 2 cm with overlying hypertropic scabbing overlying ulceration, depth appears to be superficial, no streaking, no drainage, no tunneling, no abscess, no lifting of the scab noted, no odor or drainage, no abscess or fluctanance noted. Very tiny superficial abrasion noted to the anterior aspect of left ankle with scabbing over. No streaking, no drainage, no tunneling, no abscess, no lifting of the scab noted, no odor or drainage, no abscess or fluctanance noted. ORTHO: no pain with palpation to the entire lower extremity, MM is 4/5 in all four compartments: dorsiflexion, plantarflexion, inversion, and eversion Assessment and Plan - Assessment and Plan (Free Text) Assessment: 57 y.o male with 1) right anterior ankle ulceration 2) left ankle superficial abrasion -stable, no infection Plan: Patient examined and evaluated Discussed plan with attending Dr. Davis afebrile, absent leukocytosis Ulceration cleansed with saline solution and bath clothes Applied Santyl for the right anterior ankle ulceration Dressed with optifoam to left and right anterior ankle Will continue to follow while patient in house <Raciel Davis - Last Filed: 05/06/18 17:48> Objective - Vital Signs/Intake and Output Vital Signs (last 24 hours): Temp Pulse Resp BP Pulse Ox 97.1 F L 85 20 111/70 94 L 05/06/18 16:25 05/06/18 16:25 05/06/18 16:25 05/06/18 16:25 05/06/18 16:25 Intake and Output: 05/06/18 05/06/18 06:59 18:59 Intake Total 720 840 Balance 720 840 - Medications Medications: Current Medications Amlodipine Besylate (Norvasc) 10 mg PO DAILY [facility] Last Admin: 05/06/18 10:05 Dose: 10 mg Aspirin (Ecotrin) 81 mg PO DAILY [facility] Last Admin: 05/06/18 10:03 Dose: 81 mg Atorvastatin Calcium (Lipitor) 20 mg PO DIN [facility] Last Admin: 05/06/18 17:26 Dose: 20 mg Citalopram Hydrobromide (Celexa) 10 mg PO DAILY [facility] Last Admin: 05/06/18 10:02 Dose: 10 mg Collagenase (Santyl) 0 gm TOP DAILY [facility] Last Admin: 05/06/18 10:07 Dose: 1 applic Docusate Sodium (Colace) 100 mg PO BID [facility] Last Admin: 05/06/18 17:26 Dose: 100 mg Folic Acid (Folic Acid) 1 mg PO DAILY [facility] Last Admin: 05/06/18 10:04 Dose: 1 mg Insulin Human Regular (Humulin R Low) 0 units SC [facility] PRN Reason: Protocol Last Admin: 05/06/18 16:21 Dose: Not Given Lactulose (Enulose) 20 gm PO DAILY [facility] Last Admin: 05/06/18 10:03 Dose: 20 gm Lisinopril (Zestril) 10 mg PO DAILY [facility] Last Admin: 05/06/18 10:08 Dose: 10 mg Metformin HCl (Glucophage) 500 mg PO BID [facility] Last Admin: 05/06/18 17:26 Dose: 500 mg Multivitamins/Minerals (Therapeutic-M Tab) 1 tab PO 0800 [facility] Last Admin: 05/06/18 08:08 Dose: 1 tab Ondansetron HCl (Zofran Tab) 4 mg PO Q8H PRN PRN Reason: Nausea/Vomiting Last Admin: 04/30/18 12:44 Dose: 4 mg Polyethylene Glycol (Miralax) 17 gm PO BID [facility] Last Admin: 05/06/18 17:27 Dose: 17 gm Thiamine HCl (Vitamin B1 Tab) 100 mg PO DAILY [facility] Last Admin: 05/06/18 10:08 Dose: 100 mg - Labs Labs: 05/03/18 05:45 04/25/18 06:00 PT 12.5 SECONDS (9.4-12.5) 12/09/17 10:00 INR 1.09 (0.93-1.08) H 12/09/17 10:00 APTT 28.3 Seconds (25.1-36.5) 11/30/17 05:30 Attending/Attestation - Attestation I have personally seen and examined this patient.: Yes I have fully participated in the care of the patient.: Yes I have reviewed all pertinent clinical information, including history, physical exam and plan: Yes
--- NOTE | 2018-05-06 14:37 | CP.PCM.PN ---
Subjective - Date & Time of Evaluation Date of Evaluation: 05/06/18 Time of Evaluation: 10:40 - Subjective Subjective: Comfortable, no fevers. Objective - Vital Signs/Intake and Output Vital Signs (last 24 hours): Temp Pulse Resp BP Pulse Ox 98 F 87 20 123/76 95 05/06/18 07:42 05/06/18 07:42 05/06/18 07:42 05/06/18 10:05 05/06/18 07:42 Intake and Output: 05/06/18 05/06/18 06:59 18:59 Intake Total 720 Balance 720 - Medications Medications: Current Medications Amlodipine Besylate (Norvasc) 10 mg PO DAILY [facility] Last Admin: 05/06/18 10:05 Dose: 10 mg Aspirin (Ecotrin) 81 mg PO DAILY [facility] Last Admin: 05/06/18 10:03 Dose: 81 mg Atorvastatin Calcium (Lipitor) 20 mg PO DIN [facility] Last Admin: 05/05/18 17:08 Dose: 20 mg Citalopram Hydrobromide (Celexa) 10 mg PO DAILY [facility] Last Admin: 05/06/18 10:02 Dose: 10 mg Collagenase (Santyl) 0 gm TOP DAILY [facility] Last Admin: 05/06/18 10:07 Dose: 1 applic Docusate Sodium (Colace) 100 mg PO BID [facility] Last Admin: 05/06/18 10:03 Dose: 100 mg Folic Acid (Folic Acid) 1 mg PO DAILY [facility] Last Admin: 05/06/18 10:04 Dose: 1 mg Insulin Human Regular (Humulin R Low) 0 units SC ACHS [facility] PRN Reason: Protocol Last Admin: 05/06/18 08:03 Dose: Not Given Lactulose (Enulose) 20 gm PO DAILY [facility] Last Admin: 05/06/18 10:03 Dose: 20 gm Lisinopril (Zestril) 10 mg PO DAILY [facility] Last Admin: 05/06/18 10:08 Dose: 10 mg Metformin HCl (Glucophage) 500 mg PO BID [facility] Last Admin: 05/06/18 10:04 Dose: 500 mg Multivitamins/Minerals (Therapeutic-M Tab) 1 tab PO 0800 [facility] Last Admin: 05/06/18 08:08 Dose: 1 tab Ondansetron HCl (Zofran Tab) 4 mg PO Q8H PRN PRN Reason: Nausea/Vomiting Last Admin: 04/30/18 12:44 Dose: 4 mg Polyethylene Glycol (Miralax) 17 gm PO BID [facility] Last Admin: 05/06/18 10:05 Dose: 17 gm Thiamine HCl (Vitamin B1 Tab) 100 mg PO DAILY [facility] Last Admin: 05/06/18 10:08 Dose: 100 mg - Labs Labs: 05/03/18 05:45 04/25/18 06:00 PT 12.5 SECONDS (9.4-12.5) 12/09/17 10:00 INR 1.09 (0.93-1.08) H 12/09/17 10:00 APTT 28.3 Seconds (25.1-36.5) 11/30/17 05:30 - Constitutional Appears: Chronically Ill - Head Exam Head Exam: NORMAL INSPECTION - Respiratory Exam Respiratory Exam: Decreased Breath Sounds - Cardiovascular Exam Cardiovascular Exam: +S1, +S2 - GI/Abdominal Exam GI & Abdominal Exam: Soft. absent: Tenderness Assessment and Plan - Assessment and Plan (Free Text) Plan: Assessment S/P sepsis due to strep viridans and CoNS bacteremia from right gluteal and back cellulitis S/P multifocal HCAP on top of Influenza A infection S/P Sammie infection of sacral area as well peripheral vascular disease Plan continue to monitor clinically off antibiotics since he is at risk for healthcare-associated infections
[2018-05-07] MEDS: Insulin Reg-LOW-Coverage SC SCH ×4 (08:17→21:38)
--- NOTE | 2018-05-07 08:59 | CP.PCM.PN ---
<Rama Aguero - Last Filed: 05/07/18 16:48> Subjective - Date & Time of Evaluation Date of Evaluation: 05/07/18 Time of Evaluation: 08:55 - Subjective Subjective: Progress Note for Dr. Davis 57 y.o male seen and evaluated at bedside for right anterior ankle ulceration and left ankle abrasion. Patient is seen resting comfortably in bed and in NAD. Patient is awake. Foot dressing is clean and intact. Denies any nausea, fever, shortness of breath, chest pains or chills. No other pedal complaints. Objective - Vital Signs/Intake and Output Vital Signs (last 24 hours): Temp Pulse Resp BP Pulse Ox 98.3 F 86 20 116/71 96 05/07/18 06:00 05/07/18 06:00 05/07/18 06:00 05/07/18 06:00 05/07/18 06:00 Intake and Output: 05/07/18 05/07/18 06:59 18:59 Intake Total 720 Balance 720 - Medications Medications: Current Medications Amlodipine Besylate (Norvasc) 10 mg PO DAILY [facility] Last Admin: 05/06/18 10:05 Dose: 10 mg Aspirin (Ecotrin) 81 mg PO DAILY [facility] Last Admin: 05/06/18 10:03 Dose: 81 mg Atorvastatin Calcium (Lipitor) 20 mg PO DIN [facility] Last Admin: 05/06/18 17:26 Dose: 20 mg Citalopram Hydrobromide (Celexa) 10 mg PO DAILY [facility] Last Admin: 05/06/18 10:02 Dose: 10 mg Collagenase (Santyl) 0 gm TOP DAILY [facility] Last Admin: 05/06/18 10:07 Dose: 1 applic Docusate Sodium (Colace) 100 mg PO BID [facility] Last Admin: 05/06/18 17:26 Dose: 100 mg Folic Acid (Folic Acid) 1 mg PO DAILY [facility] Last Admin: 05/06/18 10:04 Dose: 1 mg Insulin Human Regular (Humulin R Low) 0 units SC [facility] PRN Reason: Protocol Last Admin: 05/07/18 08:17 Dose: Not Given Lactulose (Enulose) 20 gm PO DAILY [facility] Last Admin: 05/06/18 10:03 Dose: 20 gm Lisinopril (Zestril) 10 mg PO DAILY [facility] Last Admin: 05/06/18 10:08 Dose: 10 mg Metformin HCl (Glucophage) 500 mg PO BID [facility] Last Admin: 05/06/18 17:26 Dose: 500 mg Multivitamins/Minerals (Therapeutic-M Tab) 1 tab PO 0800 [facility] Last Admin: 05/06/18 08:08 Dose: 1 tab Ondansetron HCl (Zofran Tab) 4 mg PO Q8H PRN PRN Reason: Nausea/Vomiting Last Admin: 04/30/18 12:44 Dose: 4 mg Polyethylene Glycol (Miralax) 17 gm PO BID [facility] Last Admin: 05/06/18 17:27 Dose: 17 gm Thiamine HCl (Vitamin B1 Tab) 100 mg PO DAILY [facility] Last Admin: 05/06/18 10:08 Dose: 100 mg - Labs Labs: 05/03/18 05:45 04/25/18 06:00 PT 12.5 SECONDS (9.4-12.5) 12/09/17 10:00 INR 1.09 (0.93-1.08) H 12/09/17 10:00 APTT 28.3 Seconds (25.1-36.5) 11/30/17 05:30 - Constitutional Appears: Well, Non-toxic, No Acute Distress - Head Exam Head Exam: ATRAUMATIC, NORMOCEPHALIC - Extremities Exam Additional comments: B/L Lower extremity exam: VASC: DP and PT faintly palpation, CFT delayed > 3 seconds x 10 digits, temperature gradient cool to cool, no edema noted to the lower extremity NEURO: difficult to assess DERM: Right: ulceration noted to the anterior aspect of right ankle at the level of the ankle joint measuring approximately 2 x 2 cm with 80% fibrotic 20% granular tissue, depth appears to be superficial, no streaking, no drainage, no tunneling , no abscess, no odor or drainage, no abscess or fluctanance noted, no clinical signs of infection Left: Superficial abrasion noted to the anterior aspect of left ankle with scabbing over. No streaking, no drainage, no tunneling, no abscess, no lifting of the scab noted, no odor or drainage, no abscess or fluctanance noted, no clinical signs of infection ORTHO: no pain with palpation to the entire lower extremity, MMT hard to assess. - Neurological Exam Neurological Exam: Alert, Awake. absent: Oriented x3 Assessment and Plan - Assessment and Plan (Free Text) Assessment: 57 y.o male with 1) right anterior ankle ulceration 2) left ankle superficial abrasion -stable, no infection Plan: Patient examined and evaluated along with the attending, Dr. Davis Chart, labs and vitals reviewed; Afebrile, absent leukocytosis Fibrotic tissue manually debrided with a sterile gauze, Applied Santyl and optifoam for the right anterior ankle ulceration Optifoam to left anterior ankle Will continue to follow while patient in house <Raciel Davis - Last Filed: 05/10/18 11:18> Objective - Vital Signs/Intake and Output Vital Signs (last 24 hours): Temp Pulse Resp BP Pulse Ox 97.6 F 92 H 20 114/76 92 L 05/10/18 07:30 05/10/18 09:13 05/10/18 07:30 05/10/18 09:14 05/10/18 07:30 - Medications Medications: Current Medications Amlodipine Besylate (Norvasc) 10 mg PO DAILY [facility] Last Admin: 05/10/18 09:14 Dose: 10 mg Aspirin (Ecotrin) 81 mg PO DAILY [facility] Last Admin: 05/10/18 09:14 Dose: 81 mg Atorvastatin Calcium (Lipitor) 20 mg PO DIN [facility] Last Admin: 05/09/18 16:47 Dose: 20 mg Citalopram Hydrobromide (Celexa) 10 mg PO DAILY [facility] Last Admin: 05/10/18 09:14 Dose: 10 mg Collagenase (Santyl) 0 gm TOP DAILY [facility] Last Admin: 05/10/18 09:15 Dose: 1 applic Docusate Sodium (Colace) 100 mg PO BID [facility] Last Admin: 05/10/18 09:14 Dose: 100 mg Folic Acid (Folic Acid) 1 mg PO DAILY [facility] Last Admin: 05/10/18 09:14 Dose: 1 mg Insulin Human Regular (Humulin R Low) 0 units SC [facility] PRN Reason: Protocol Last Admin: 05/10/18 07:56 Dose: Not Given Lactulose (Enulose) 20 gm PO DAILY [facility] Last Admin: 05/10/18 09:14 Dose: 20 gm Lisinopril (Zestril) 10 mg PO DAILY [facility] Last Admin: 05/10/18 09:13 Dose: 10 mg Metformin HCl (Glucophage) 500 mg PO BID [facility] Last Admin: 05/10/18 09:14 Dose: 500 mg Multivitamins/Minerals (Therapeutic-M Tab) 1 tab PO 0800 [facility] Last Admin: 05/10/18 09:14 Dose: 1 tab Ondansetron HCl (Zofran Tab) 4 mg PO Q8H PRN PRN Reason: Nausea/Vomiting Last Admin: 04/30/18 12:44 Dose: 4 mg Polyethylene Glycol (Miralax) 17 gm PO BID [facility] Last Admin: 05/10/18 09:15 Dose: 17 gm Thiamine HCl (Vitamin B1 Tab) 100 mg PO DAILY [facility] Last Admin: 05/10/18 09:14 Dose: 100 mg - Labs Labs: 05/03/18 05:45 04/25/18 06:00 PT 12.5 SECONDS (9.4-12.5) 12/09/17 10:00 INR 1.09 (0.93-1.08) H 12/09/17 10:00 APTT 28.3 Seconds (25.1-36.5) 11/30/17 05:30 Attending/Attestation - Attestation I have personally seen and examined this patient.: Yes I have fully participated in the care of the patient.: Yes I have reviewed all pertinent clinical information, including history, physical exam and plan: Yes
[2018-05-07] MEDS: Multivitamin With Minerals Tab PO SCH (09:10)
[2018-05-07] MEDS: POLYETHYLENE GLYCOL 3350 17 GM/Dose PACKET PO SCH ×2 (09:10→17:05)
[2018-05-07] MEDS: Collagenase 250 Units/gm Ointment(30 gm) TOP SCH (09:11)
--- NOTE | 2018-05-07 11:37 | PN ---
DATE: 05/07/2018 SUBJECTIVE: The patient is in bed, in no acute distress. Nontoxic. OBJECTIVE: VITAL SIGNS: On exam, temperature is 98, blood pressure is 116/70, respiratory rate of 20, heart rate of 86. HEENT: Examination is unremarkable. NECK: Supple. LUNGS: Have decreased breath sounds. HEART: Normal S1, S2. ABDOMEN: Soft, nontender. DATA: Laboratory examination reveals a white count of 10.4, hemoglobin of 10, platelets of 412. Chemistries reveal the patient's creatinine is noted at 0.6. ASSESSMENT AND PLAN: This is a 57-year-old male who was initially admitted with sepsis due to strep viridans and Coag-negative staph bacteremia from right gluteal and back cellulitis and developed multifocal healthcare-associated pneumonia on top of influenza A infection, currently off of antibiotics. We will follow closely with you. There is a risk for developing nosocomial infections. Daniel Torres MD
--- NOTE | 2018-05-07 14:16 | CP.PCM.PN ---
<Rohit Chisholm - Last Filed: 05/07/18 14:12> Subjective - Date & Time of Evaluation Date of Evaluation: 05/07/18 Time of Evaluation: 06:15 - Subjective Subjective: Rohit Chisholm PGY-1 Progress Note for Hospitalist Service. Patient seen and evaluated at bedside. Denies any acute events overnight. Patient has new bandage on L forefoot in addition to the R forefoot but patient denies pain on the Left. Objective - Vital Signs/Intake and Output Vital Signs (last 24 hours): Temp Pulse Resp BP Pulse Ox 98.3 F 86 20 116/71 96 05/07/18 06:00 05/07/18 09:10 05/07/18 06:00 05/07/18 09:10 05/07/18 06:00 Intake and Output: 05/07/18 05/07/18 06:59 18:59 Intake Total 720 Balance 720 - Medications Medications: Current Medications Amlodipine Besylate (Norvasc) 10 mg PO DAILY [facility] Last Admin: 05/07/18 09:10 Dose: 10 mg Aspirin (Ecotrin) 81 mg PO DAILY [facility] Last Admin: 05/07/18 09:10 Dose: 81 mg Atorvastatin Calcium (Lipitor) 20 mg PO DIN [facility] Last Admin: 05/06/18 17:26 Dose: 20 mg Citalopram Hydrobromide (Celexa) 10 mg PO DAILY [facility] Last Admin: 05/07/18 09:10 Dose: 10 mg Collagenase (Santyl) 0 gm TOP DAILY [facility] Last Admin: 05/07/18 09:11 Dose: 1 applic Docusate Sodium (Colace) 100 mg PO BID [facility] Last Admin: 05/07/18 09:10 Dose: 100 mg Folic Acid (Folic Acid) 1 mg PO DAILY [facility] Last Admin: 05/07/18 09:10 Dose: 1 mg Insulin Human Regular (Humulin R Low) 0 units SC [facility] PRN Reason: Protocol Last Admin: 05/07/18 11:57 Dose: 1 units Lactulose (Enulose) 20 gm PO DAILY [facility] Last Admin: 05/07/18 09:10 Dose: 20 gm Lisinopril (Zestril) 10 mg PO DAILY [facility] Last Admin: 05/07/18 09:10 Dose: 10 mg Metformin HCl (Glucophage) 500 mg PO BID [facility] Last Admin: 05/07/18 09:10 Dose: 500 mg Multivitamins/Minerals (Therapeutic-M Tab) 1 tab PO 0800 [facility] Last Admin: 05/07/18 09:10 Dose: 1 tab Ondansetron HCl (Zofran Tab) 4 mg PO Q8H PRN PRN Reason: Nausea/Vomiting Last Admin: 04/30/18 12:44 Dose: 4 mg Polyethylene Glycol (Miralax) 17 gm PO BID [facility] Last Admin: 05/07/18 09:10 Dose: 17 gm Thiamine HCl (Vitamin B1 Tab) 100 mg PO DAILY [facility] Last Admin: 05/07/18 09:10 Dose: 100 mg - Labs Labs: 05/03/18 05:45 04/25/18 06:00 PT 12.5 SECONDS (9.4-12.5) 12/09/17 10:00 INR 1.09 (0.93-1.08) H 12/09/17 10:00 APTT 28.3 Seconds (25.1-36.5) 11/30/17 05:30 - Constitutional Appears: No Acute Distress - Head Exam Head Exam: ATRAUMATIC, NORMAL INSPECTION, NORMOCEPHALIC - Eye Exam Eye Exam: EOMI, Normal appearance - ENT Exam ENT Exam: Mucous Membranes Moist - Respiratory Exam Respiratory Exam: Clear to Ausculation Bilateral, NORMAL BREATHING PATTERN - Cardiovascular Exam Cardiovascular Exam: RRR, +S1, +S2 - GI/Abdominal Exam GI & Abdominal Exam: Soft, Normal Bowel Sounds. absent: Distended, Tenderness - Extremities Exam Additional comments: Bandages on R and L anterior forefeet. Clear exudate from L foot ulcer. Small 1/ 2 cm scab under Left bandage. - Neurological Exam Neurological Exam: Alert, Awake. absent: Oriented x3 - Psychiatric Exam Psychiatric exam: Normal Affect, Normal Mood - Skin Skin Exam: Normal Color Assessment and Plan - Assessment and Plan (Free Text) Assessment: Mr. Montano is a 57 year old male unknown PMHx admitted for AMS, right hip cellulitis, multifocal pneumonia, influenza A, strep viridians bacteremia with findings of stroke on MRI - acute vs. 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 Patient was treated for bacteremia with IV abx. Guardianship establishment pending court date, which was rescheduled for early May. 1. Altered mental status Patient's mental status appears to be at baseline this AM; AAOx1 on evaluation. Cont. delirium precautions PT -patient refusing to participate Cont ASA 81 QD / LIPITOR 20 QD 2. Right Foot Ulcer Podiatry recommendations appreciated Grew since yesterday per nursing. No julia blood or inflammation noted. Wound care following. Started medihoney. 3. Coag negative Staphylococcus bacteremia - resolved Last bld clx negative 12/04/17 with completion of 6 week course of antibiotics Monitor WBC, ESR, CRP weekly Echocardiogram unable to rule out vegetations, family is unavailable for consent for TAHIR 4. Colonic mass CT Abd/Pelvis showing colonic mass and hepatic lesions GI consulted: follow recs Flex sig/colonoscopy refused by patient Family unable to be contacted for consent 5. Diabetes mellitus type 2 Cont RISS low Cont Metformin 500mg BID Cont accuchecks Carb consistent diet 6. HTN BP Stable Cont Lisinopril 10 QD Cont Amlodipine 10 mg PO QD Stable, continue to monitor 7. Affective disorder Cont Celexa 10mg PO Daily 8. Constipation Colace 100mg BID Miralax 17gm BID 9. Hx EtOH Abuse Cont Thiamine Cont Folic Acid Cont Multivitamin DVT Prophylaxis: SCDs Dispo: Patient continues to display a lack of decision making capacity: Guardianship status to be determined; Court date for guardianship postponed to early May. Patient seen, case reviewed, and plan agreed upon with Dr. Galo. Rohit Chisholm, PGY-1 <Sixto Galo - Last Filed: 05/07/18 14:35> Objective - Vital Signs/Intake and Output Vital Signs (last 24 hours): Temp Pulse Resp BP Pulse Ox 98.3 F 86 20 116/71 96 05/07/18 06:00 05/07/18 09:10 05/07/18 06:00 05/07/18 09:10 05/07/18 06:00 Intake and Output: 05/07/18 05/07/18 06:59 18:59 Intake Total 720 Balance 720 - Medications Medications: Current Medications Amlodipine Besylate (Norvasc) 10 mg PO DAILY [facility] Last Admin: 05/07/18 09:10 Dose: 10 mg Aspirin (Ecotrin) 81 mg PO DAILY [facility] Last Admin: 05/07/18 09:10 Dose: 81 mg Atorvastatin Calcium (Lipitor) 20 mg PO DIN [facility] Last Admin: 05/06/18 17:26 Dose: 20 mg Citalopram Hydrobromide (Celexa) 10 mg PO DAILY [facility] Last Admin: 05/07/18 09:10 Dose: 10 mg Collagenase (Santyl) 0 gm TOP DAILY [facility] Last Admin: 05/07/18 09:11 Dose: 1 applic Docusate Sodium (Colace) 100 mg PO BID [facility] Last Admin: 05/07/18 09:10 Dose: 100 mg Folic Acid (Folic Acid) 1 mg PO DAILY [facility] Last Admin: 05/07/18 09:10 Dose: 1 mg Insulin Human Regular (Humulin R Low) 0 units SC ACHS [facility] PRN Reason: Protocol Last Admin: 05/07/18 11:57 Dose: 1 units Lactulose (Enulose) 20 gm PO DAILY [facility] Last Admin: 05/07/18 09:10 Dose: 20 gm Lisinopril (Zestril) 10 mg PO DAILY [facility] Last Admin: 05/07/18 09:10 Dose: 10 mg Metformin HCl (Glucophage) 500 mg PO BID [facility] Last Admin: 05/07/18 09:10 Dose: 500 mg Multivitamins/Minerals (Therapeutic-M Tab) 1 tab PO 0800 [facility] Last Admin: 05/07/18 09:10 Dose: 1 tab Ondansetron HCl (Zofran Tab) 4 mg PO Q8H PRN PRN Reason: Nausea/Vomiting Last Admin: 04/30/18 12:44 Dose: 4 mg Polyethylene Glycol (Miralax) 17 gm PO BID [facility] Last Admin: 05/07/18 09:10 Dose: 17 gm Thiamine HCl (Vitamin B1 Tab) 100 mg PO DAILY [facility] Last Admin: 05/07/18 09:10 Dose: 100 mg - Labs Labs: 05/03/18 05:45 04/25/18 06:00 PT 12.5 SECONDS (9.4-12.5) 12/09/17 10:00 INR 1.09 (0.93-1.08) H 12/09/17 10:00 APTT 28.3 Seconds (25.1-36.5) 11/30/17 05:30 Attending/Attestation - Attestation I have personally seen and examined this patient.: Yes I have fully participated in the care of the patient.: Yes I have reviewed all pertinent clinical information, including history, physical exam and plan: Yes Notes (Text): 05/07/18 14:34 57 year old male who was admitted with altered mental status found to have CVA, bacteremia, right gluteal cellulitis and multifocal pneumonia. He is s/p antibiotics treatment. His mental status appears at his baseline. Continue with local wound care for foot ulcers as per podiatry. Court date has been postponed to early next month as per SW. Sixto Galo MD Hospitalist.
[2018-05-08] MEDS: Insulin Reg-LOW-Coverage SC SCH ×4 (08:23→21:49)
[2018-05-08] MEDS: POLYETHYLENE GLYCOL 3350 17 GM/Dose PACKET PO SCH ×2 (09:54→17:36)
[2018-05-08] MEDS: Multivitamin With Minerals Tab PO SCH (09:55)
[2018-05-08] MEDS: Collagenase 250 Units/gm Ointment(30 gm) TOP SCH (10:03)
--- NOTE | 2018-05-08 14:42 | CP.PCM.PN ---
<Rama Aguero - Last Filed: 05/08/18 14:39> Subjective - Date & Time of Evaluation Date of Evaluation: 05/08/18 Time of Evaluation: 14:39 - Subjective Subjective: Progress Note for Dr. Oakley 57 y.o male seen and evaluated at bedside for right anterior ankle ulceration and left ankle abrasion. Patient is seen resting comfortably in bed and in NAD. Patient is awake. Foot dressing is clean and intact. Patient verbally denies any pain in his feet. Denies any nausea, fever, shortness of breath, chest pains or chills. No other pedal complaints. Objective - Vital Signs/Intake and Output Vital Signs (last 24 hours): Temp Pulse Resp BP Pulse Ox 97.5 F L 82 16 115/72 95 05/08/18 06:00 05/08/18 09:55 05/08/18 06:00 05/08/18 09:55 05/08/18 06:00 Intake and Output: 05/08/18 05/08/18 06:59 18:59 Intake Total 1000 Balance 1000 - Medications Medications: Current Medications Amlodipine Besylate (Norvasc) 10 mg PO DAILY [facility] Last Admin: 05/08/18 09:54 Dose: 10 mg Aspirin (Ecotrin) 81 mg PO DAILY [facility] Last Admin: 05/08/18 09:56 Dose: 81 mg Atorvastatin Calcium (Lipitor) 20 mg PO DIN [facility] Last Admin: 05/07/18 17:05 Dose: 20 mg Citalopram Hydrobromide (Celexa) 10 mg PO DAILY [facility] Last Admin: 05/08/18 09:56 Dose: 10 mg Collagenase (Santyl) 0 gm TOP DAILY [facility] Last Admin: 05/08/18 10:03 Dose: Not Given Docusate Sodium (Colace) 100 mg PO BID [facility] Last Admin: 05/08/18 09:55 Dose: 100 mg Folic Acid (Folic Acid) 1 mg PO DAILY [facility] Last Admin: 05/08/18 09:55 Dose: 1 mg Insulin Human Regular (Humulin R Low) 0 units SC [facility] PRN Reason: Protocol Last Admin: 05/08/18 11:19 Dose: Not Given Lactulose (Enulose) 20 gm PO DAILY [facility] Last Admin: 05/08/18 09:54 Dose: 20 gm Lisinopril (Zestril) 10 mg PO DAILY [facility] Last Admin: 05/08/18 09:55 Dose: 10 mg Metformin HCl (Glucophage) 500 mg PO BID [facility] Last Admin: 05/08/18 09:55 Dose: 500 mg Multivitamins/Minerals (Therapeutic-M Tab) 1 tab PO 0800 [facility] Last Admin: 05/08/18 09:55 Dose: 1 tab Ondansetron HCl (Zofran Tab) 4 mg PO Q8H PRN PRN Reason: Nausea/Vomiting Last Admin: 04/30/18 12:44 Dose: 4 mg Polyethylene Glycol (Miralax) 17 gm PO BID [facility] Last Admin: 05/08/18 09:54 Dose: 17 gm Thiamine HCl (Vitamin B1 Tab) 100 mg PO DAILY [facility] Last Admin: 05/08/18 09:55 Dose: 100 mg - Labs Labs: 05/03/18 05:45 04/25/18 06:00 PT 12.5 SECONDS (9.4-12.5) 12/09/17 10:00 INR 1.09 (0.93-1.08) H 12/09/17 10:00 APTT 28.3 Seconds (25.1-36.5) 11/30/17 05:30 - Constitutional Appears: Well, Non-toxic, No Acute Distress - Head Exam Head Exam: ATRAUMATIC, NORMOCEPHALIC - Extremities Exam Additional comments: B/L Lower extremity exam: VASC: DP and PT faintly palpable, CFT delayed > 3 seconds x 10 digits, temperature gradient cool to cool, no edema noted to the lower extremity NEURO: difficult to assess DERM: Right: ulceration noted to the anterior aspect of right ankle at the level of the ankle joint measuring approximately 2 x 2 cm with necrotic scab, depth appears to be superficial, no streaking, no drainage, no tunneling, no abscess, no odor or drainage, no abscess or fluctanance noted, no clinical signs of infection Left: Superficial abrasion noted to the anterior aspect of left ankle with scabbing over. No streaking, no drainage, no tunneling, no abscess, no lifting of the scab noted, no odor or drainage, no abscess or fluctanance noted, no clinical signs of infection ORTHO: no pain with palpation to the entire lower extremity, MMT hard to assess. - Neurological Exam Neurological Exam: Alert, Awake Assessment and Plan - Assessment and Plan (Free Text) Assessment: 57 y.o male with 1) right anterior ankle ulceration 2) left ankle superficial abrasion -stable, no infection Plan: Patient examined and evaluated Plan discussed with Dr. oakley. Chart, labs and vitals reviewed; Afebrile, absent leukocytosis Applied Santyl and optifoam for the right anterior ankle ulceration Optifoam to left anterior ankle Will continue to follow while patient in house <Ivania Oakley - Last Filed: 05/08/18 16:51> Objective - Vital Signs/Intake and Output Vital Signs (last 24 hours): Temp Pulse Resp BP Pulse Ox 97.5 F L 82 16 115/72 95 05/08/18 06:00 05/08/18 09:55 05/08/18 06:00 05/08/18 09:55 05/08/18 06:00 Intake and Output: 05/08/18 05/08/18 06:59 18:59 Intake Total 1000 Balance 1000 - Medications Medications: Current Medications Amlodipine Besylate (Norvasc) 10 mg PO DAILY [facility] Last Admin: 05/08/18 09:54 Dose: 10 mg Aspirin (Ecotrin) 81 mg PO DAILY [facility] Last Admin: 05/08/18 09:56 Dose: 81 mg Atorvastatin Calcium (Lipitor) 20 mg PO DIN [facility] Last Admin: 05/07/18 17:05 Dose: 20 mg Citalopram Hydrobromide (Celexa) 10 mg PO DAILY [facility] Last Admin: 05/08/18 09:56 Dose: 10 mg Collagenase (Santyl) 0 gm TOP DAILY [facility] Last Admin: 05/08/18 10:03 Dose: Not Given Docusate Sodium (Colace) 100 mg PO BID [facility] Last Admin: 05/08/18 09:55 Dose: 100 mg Folic Acid (Folic Acid) 1 mg PO DAILY [facility] Last Admin: 05/08/18 09:55 Dose: 1 mg Insulin Human Regular (Humulin R Low) 0 units SC [facility] PRN Reason: Protocol Last Admin: 05/08/18 11:19 Dose: Not Given Lactulose (Enulose) 20 gm PO DAILY [facility] Last Admin: 05/08/18 09:54 Dose: 20 gm Lisinopril (Zestril) 10 mg PO DAILY [facility] Last Admin: 05/08/18 09:55 Dose: 10 mg Metformin HCl (Glucophage) 500 mg PO BID [facility] Last Admin: 05/08/18 09:55 Dose: 500 mg Multivitamins/Minerals (Therapeutic-M Tab) 1 tab PO 0800 [facility] Last Admin: 05/08/18 09:55 Dose: 1 tab Ondansetron HCl (Zofran Tab) 4 mg PO Q8H PRN PRN Reason: Nausea/Vomiting Last Admin: 04/30/18 12:44 Dose: 4 mg Polyethylene Glycol (Miralax) 17 gm PO BID [facility] Last Admin: 05/08/18 09:54 Dose: 17 gm Thiamine HCl (Vitamin B1 Tab) 100 mg PO DAILY [facility] Last Admin: 05/08/18 09:55 Dose: 100 mg - Labs Labs: 05/03/18 05:45 04/25/18 06:00 PT 12.5 SECONDS (9.4-12.5) 12/09/17 10:00 INR 1.09 (0.93-1.08) H 12/09/17 10:00 APTT 28.3 Seconds (25.1-36.5) 11/30/17 05:30 Attending/Attestation - Attestation I have personally seen and examined this patient.: Yes I have fully participated in the care of the patient.: Yes I have reviewed all pertinent clinical information, including history, physical exam and plan: Yes
--- NOTE | 2018-05-08 14:49 | CP.PCM.PN ---
<Jones Weller - Last Filed: 05/08/18 14:46> Subjective - Date & Time of Evaluation Date of Evaluation: 05/08/18 Time of Evaluation: 08:15 - Subjective Subjective: Jones Weller DO PGY-1 [employer] [facility] Progress Note Pt seen and examined at bedside, denies any acute complaints, states he is comfortable, denies pain. Ate breakfast this am. No acute events reported overnight. Objective - Vital Signs/Intake and Output Vital Signs (last 24 hours): Temp Pulse Resp BP Pulse Ox 97.5 F L 82 16 115/72 95 05/08/18 06:00 05/08/18 09:55 05/08/18 06:00 05/08/18 09:55 05/08/18 06:00 Intake and Output: 05/08/18 05/08/18 06:59 18:59 Intake Total 1000 Balance 1000 - Medications Medications: Current Medications Amlodipine Besylate (Norvasc) 10 mg PO DAILY [facility] Last Admin: 05/08/18 09:54 Dose: 10 mg Aspirin (Ecotrin) 81 mg PO DAILY [facility] Last Admin: 05/08/18 09:56 Dose: 81 mg Atorvastatin Calcium (Lipitor) 20 mg PO DIN [facility] Last Admin: 05/07/18 17:05 Dose: 20 mg Citalopram Hydrobromide (Celexa) 10 mg PO DAILY [facility] Last Admin: 05/08/18 09:56 Dose: 10 mg Collagenase (Santyl) 0 gm TOP DAILY [facility] Last Admin: 05/08/18 10:03 Dose: Not Given Docusate Sodium (Colace) 100 mg PO BID [facility] Last Admin: 05/08/18 09:55 Dose: 100 mg Folic Acid (Folic Acid) 1 mg PO DAILY [facility] Last Admin: 05/08/18 09:55 Dose: 1 mg Insulin Human Regular (Humulin R Low) 0 units SC [facility] PRN Reason: Protocol Last Admin: 05/08/18 11:19 Dose: Not Given Lactulose (Enulose) 20 gm PO DAILY [facility] Last Admin: 05/08/18 09:54 Dose: 20 gm Lisinopril (Zestril) 10 mg PO DAILY [facility] Last Admin: 05/08/18 09:55 Dose: 10 mg Metformin HCl (Glucophage) 500 mg PO BID [facility] Last Admin: 05/08/18 09:55 Dose: 500 mg Multivitamins/Minerals (Therapeutic-M Tab) 1 tab PO 0800 [facility] Last Admin: 05/08/18 09:55 Dose: 1 tab Ondansetron HCl (Zofran Tab) 4 mg PO Q8H PRN PRN Reason: Nausea/Vomiting Last Admin: 04/30/18 12:44 Dose: 4 mg Polyethylene Glycol (Miralax) 17 gm PO BID [facility] Last Admin: 05/08/18 09:54 Dose: 17 gm Thiamine HCl (Vitamin B1 Tab) 100 mg PO DAILY [facility] Last Admin: 05/08/18 09:55 Dose: 100 mg - Labs Labs: 05/03/18 05:45 04/25/18 06:00 PT 12.5 SECONDS (9.4-12.5) 12/09/17 10:00 INR 1.09 (0.93-1.08) H 12/09/17 10:00 APTT 28.3 Seconds (25.1-36.5) 11/30/17 05:30 - Constitutional Appears: Non-toxic, No Acute Distress, Confused - Head Exam Head Exam: ATRAUMATIC, NORMAL INSPECTION, NORMOCEPHALIC - Eye Exam Eye Exam: EOMI, Normal appearance, PERRL - ENT Exam ENT Exam: Mucous Membranes Moist, Normal Oropharynx - Neck Exam Neck Exam: Full ROM, Normal Inspection - Respiratory Exam Respiratory Exam: Clear to Ausculation Bilateral, NORMAL BREATHING PATTERN - Cardiovascular Exam Cardiovascular Exam: REGULAR RHYTHM, +S1, +S2 - GI/Abdominal Exam GI & Abdominal Exam: Soft, Normal Bowel Sounds - Back Exam Back Exam: Full ROM, NORMAL INSPECTION - Neurological Exam Neurological Exam: Alert, Awake Additional comments: Oriented x1 - Psychiatric Exam Psychiatric exam: Flat Affect - Skin Skin Exam: Dry, Normal Color, Warm Additional comments: Bandages on L and R anterior forefeet. Clear exudate from L foot ulcer. Small 1/ 2 cm scab under L bandage. Assessment and Plan - Assessment and Plan (Free Text) Assessment: 57 year old male unknown PMHx admitted on 11/29/17 for AMS, right hip cellulitis , multifocal pneumonia, influenza A, strep viridians bacteremia with findings of stroke on MRI - acute vs. 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 Patient was treated for bacteremia with IV abx. Guardianship establishment pending court date, which was rescheduled for early May. Plan: Altered mental status At baseline this AM; AAOx1 on evaluation. Cont. delirium precautions PT -patient refusing to participate Cont ASA 81 QD / LIPITOR 20 QD Right Foot Ulcer Podiatry recommendations appreciated Wound care following Started medihoney. Coag negative Staphylococcus bacteremia - resolved Last bld clx negative 12/04/17 with completion of 6 week course of antibiotics Monitor WBC, ESR, CRP weekly Echocardiogram unable to rule out vegetations, family is unavailable for consent for TAHIR Colonic mass CT Abd/Pelvis showing colonic mass and hepatic lesions GI consulted: follow recs Flex sig/colonoscopy refused by patient Family unable to be contacted for consent Diabetes mellitus type 2 Cont RISS low Cont Metformin 500mg BID Cont accuchecks Carb consistent diet HTN BP Stable, continue to monitor Cont Lisinopril 10 QD Cont Amlodipine 10 mg PO QD Affective disorder Cont Celexa 10mg PO Daily Constipation Colace 100mg BID Miralax 17gm BID Hx EtOH Abuse Cont Thiamine Cont Folic Acid Cont Multivitamin DVT Prophylaxis: SCDs Dispo: Patient continues to display a lack of decision making capacity: Guardianship status to be determined; Court date for guardianship postponed to early May. Pt seen, examined with, and plan discussed with Dr. Galo, attending. Jones Weller DO PGY-1, [employer] Pager #[phone] <Sixto Galo - Last Filed: 05/09/18 07:17> Objective - Vital Signs/Intake and Output Vital Signs (last 24 hours): Temp Pulse Resp BP Pulse Ox 98.1 F 92 H 20 112/66 94 L 05/08/18 17:26 05/08/18 17:26 05/08/18 17:26 05/08/18 17:26 05/08/18 17:26 Intake and Output: 05/09/18 05/09/18 06:59 18:59 Intake Total 780 Balance 780 - Medications Medications: Current Medications Amlodipine Besylate (Norvasc) 10 mg PO DAILY [facility] Last Admin: 05/08/18 09:54 Dose: 10 mg Aspirin (Ecotrin) 81 mg PO DAILY [facility] Last Admin: 05/08/18 09:56 Dose: 81 mg Atorvastatin Calcium (Lipitor) 20 mg PO DIN [facility] Last Admin: 05/08/18 17:36 Dose: 20 mg Citalopram Hydrobromide (Celexa) 10 mg PO DAILY [facility] Last Admin: 05/08/18 09:56 Dose: 10 mg Collagenase (Santyl) 0 gm TOP DAILY [facility] Last Admin: 05/08/18 10:03 Dose: Not Given Docusate Sodium (Colace) 100 mg PO BID [facility] Last Admin: 05/08/18 17:36 Dose: 100 mg Folic Acid (Folic Acid) 1 mg PO DAILY [facility] Last Admin: 05/08/18 09:55 Dose: 1 mg Insulin Human Regular (Humulin R Low) 0 units SC [facility] PRN Reason: Protocol Last Admin: 05/08/18 21:49 Dose: Not Given Lactulose (Enulose) 20 gm PO DAILY [facility] Last Admin: 05/08/18 09:54 Dose: 20 gm Lisinopril (Zestril) 10 mg PO DAILY [facility] Last Admin: 05/08/18 09:55 Dose: 10 mg Metformin HCl (Glucophage) 500 mg PO BID [facility] Last Admin: 05/08/18 17:36 Dose: 500 mg Multivitamins/Minerals (Therapeutic-M Tab) 1 tab PO 0800 [facility] Last Admin: 05/08/18 09:55 Dose: 1 tab Ondansetron HCl (Zofran Tab) 4 mg PO Q8H PRN PRN Reason: Nausea/Vomiting Last Admin: 04/30/18 12:44 Dose: 4 mg Polyethylene Glycol (Miralax) 17 gm PO BID [facility] Last Admin: 05/08/18 17:36 Dose: 17 gm Thiamine HCl (Vitamin B1 Tab) 100 mg PO DAILY [facility] Last Admin: 05/08/18 09:55 Dose: 100 mg - Labs Labs: 05/03/18 05:45 04/25/18 06:00 PT 12.5 SECONDS (9.4-12.5) 12/09/17 10:00 INR 1.09 (0.93-1.08) H 12/09/17 10:00 APTT 28.3 Seconds (25.1-36.5) 11/30/17 05:30 Attending/Attestation - Attestation I have personally seen and examined this patient.: Yes I have fully participated in the care of the patient.: Yes I have reviewed all pertinent clinical information, including history, physical exam and plan: Yes Notes (Text): 05/08/18 57 year old male who was admitted with altered mental status found to have CVA, bacteremia, right gluteal cellulitis and multifocal pneumonia. He is s/p antibiotics treatment. His mental status appears at his baseline. He is comfortable without any new complaints. Court date has been postponed to early next month as per SW. Sixto Galo MD Hospitalist.
--- NOTE | 2018-05-08 15:49 | PN ---
DATE: 05/08/2018 SUBJECTIVE: The patient is in bed, in no acute distress, nontoxic. PHYSICAL EXAMINATION: VITAL SIGNS: Temperature is 97, blood pressure is 115/70, respiratory rate of 18. HEENT: Unremarkable. NECK: Supple. LUNGS: Have decreased breath sounds. HEART: Normal S1, S2. ABDOMINAL: Soft, nontender. LABORATORY EXAMINATION: Reveals a white count of 10,000, hemoglobin of 10, platelets of 415. Creatinine is reported. ASSESSMENT AND PLAN: A 57-year-old male seen earlier today in room 363, bed 1. He was initially admitted with sepsis with a Streptococcus viridans and coagulase-negative staphylococcus bacteremia from right gluteal and back cellulitis, also had multifocal healthcare-associated pneumonia on top of influenza A infection. Currently now off of antibiotics, afebrile. The patient is at risk for developing nosocomial infections. Daniel Torres MD
--- NOTE | 2018-05-09 07:13 | CP.PCM.PN ---
<Rohit Chisholm - Last Filed: 05/09/18 15:16> Subjective - Date & Time of Evaluation Date of Evaluation: 05/09/18 Time of Evaluation: 06:15 - Subjective Subjective: Rohit Chisholm PGY-1 Progress Note for Hospitalist Service Patient seen and evaluated at bedside. No acute complaints overnight. Describes some pain on his L foot ulcer. Otherwise, denies CP, SOB, abdominal pain and headaches. Objective - Vital Signs/Intake and Output Vital Signs (last 24 hours): Temp Pulse Resp BP Pulse Ox 98.1 F 92 H 20 112/66 94 L 05/08/18 17:26 05/08/18 17:26 05/08/18 17:26 05/08/18 17:26 05/08/18 17:26 Intake and Output: 05/09/18 05/09/18 06:59 18:59 Intake Total 780 Balance 780 - Medications Medications: Current Medications Amlodipine Besylate (Norvasc) 10 mg PO DAILY [facility] Last Admin: 05/08/18 09:54 Dose: 10 mg Aspirin (Ecotrin) 81 mg PO DAILY [facility] Last Admin: 05/08/18 09:56 Dose: 81 mg Atorvastatin Calcium (Lipitor) 20 mg PO DIN [facility] Last Admin: 05/08/18 17:36 Dose: 20 mg Citalopram Hydrobromide (Celexa) 10 mg PO DAILY [facility] Last Admin: 05/08/18 09:56 Dose: 10 mg Collagenase (Santyl) 0 gm TOP DAILY [facility] Last Admin: 05/08/18 10:03 Dose: Not Given Docusate Sodium (Colace) 100 mg PO BID [facility] Last Admin: 05/08/18 17:36 Dose: 100 mg Folic Acid (Folic Acid) 1 mg PO DAILY [facility] Last Admin: 05/08/18 09:55 Dose: 1 mg Insulin Human Regular (Humulin R Low) 0 units SC [facility] PRN Reason: Protocol Last Admin: 05/08/18 21:49 Dose: Not Given Lactulose (Enulose) 20 gm PO DAILY [facility] Last Admin: 05/08/18 09:54 Dose: 20 gm Lisinopril (Zestril) 10 mg PO DAILY [facility] Last Admin: 05/08/18 09:55 Dose: 10 mg Metformin HCl (Glucophage) 500 mg PO BID [facility] Last Admin: 05/08/18 17:36 Dose: 500 mg Multivitamins/Minerals (Therapeutic-M Tab) 1 tab PO 0800 [facility] Last Admin: 05/08/18 09:55 Dose: 1 tab Ondansetron HCl (Zofran Tab) 4 mg PO Q8H PRN PRN Reason: Nausea/Vomiting Last Admin: 04/30/18 12:44 Dose: 4 mg Polyethylene Glycol (Miralax) 17 gm PO BID [facility] Last Admin: 05/08/18 17:36 Dose: 17 gm Thiamine HCl (Vitamin B1 Tab) 100 mg PO DAILY [facility] Last Admin: 05/08/18 09:55 Dose: 100 mg - Labs Labs: 05/03/18 05:45 04/25/18 06:00 PT 12.5 SECONDS (9.4-12.5) 12/09/17 10:00 INR 1.09 (0.93-1.08) H 12/09/17 10:00 APTT 28.3 Seconds (25.1-36.5) 11/30/17 05:30 - Constitutional Appears: Well, No Acute Distress - Head Exam Head Exam: ATRAUMATIC, NORMOCEPHALIC - Eye Exam Eye Exam: Normal appearance, PERRL - ENT Exam ENT Exam: Mucous Membranes Moist - Neck Exam Neck Exam: Normal Inspection - Respiratory Exam Respiratory Exam: Clear to Ausculation Bilateral, NORMAL BREATHING PATTERN. absent: Rales, Rhonchi, Wheezes - Cardiovascular Exam Cardiovascular Exam: RRR, +S1, +S2 - GI/Abdominal Exam GI & Abdominal Exam: Soft, Normal Bowel Sounds. absent: Tenderness - Extremities Exam Additional comments: R foot dorsal ulcer bandaged. L foot dorsal ulcer unbandaged. Tender but no discharge currently. - Neurological Exam Neurological Exam: Alert, Awake Assessment and Plan - Assessment and Plan (Free Text) Assessment: Mr. Montano is a 57 year old male unknown PMHx admitted on 11/29/17 for AMS, right hip cellulitis, multifocal pneumonia, influenza A, strep viridians bacteremia with findings of stroke on MRI - acute vs. 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 Patient was treated for bacteremia with IV abx. Guardianship establishment pending court date, which was rescheduled for early May. Altered mental status At baseline this AM; AAOx1 on evaluation. Cont. delirium precautions PT -patient refusing to participate Cont ASA 81 QD / LIPITOR 20 QD Dorsal Right and Left Foot Ulcer Bandaged. Non purulent. Podiatry recommendations appreciated Wound care following Started medihoney Coag negative Staphylococcus bacteremia - resolved Last bld clx negative 12/04/17 with completion of 6 week course of antibiotics Monitor WBC, ESR, CRP weekly Echocardiogram unable to rule out vegetations, family is unavailable for consent for TAHIR Colonic mass CT Abd/Pelvis showing colonic mass and hepatic lesions GI consulted: follow recs Flex sig/colonoscopy refused by patient Family unable to be contacted for consent Diabetes mellitus type 2 Cont RISS low Cont Metformin 500mg BID Cont accuchecks Carb consistent diet HTN BP Stable, continue to monitor Cont Lisinopril 10 QD Cont Amlodipine 10 mg PO QD Affective disorder Cont Celexa 10mg PO Daily Constipation Colace 100mg BID Miralax 17gm BID Hx EtOH Abuse Cont Thiamine Cont Folic Acid Cont Multivitamin DVT Prophylaxis: SCDs Dispo: Patient continues to display a lack of decision making capacity: Guardianship status to be determined; Court date for guardianship postponed to early May. Patient seen, case reviewed, and plan agreed upon with Dr. Galo. Rohit Chisholm, PGY-1 <Sixto Galo - Last Filed: 05/09/18 16:58> Objective - Vital Signs/Intake and Output Vital Signs (last 24 hours): Temp Pulse Resp BP Pulse Ox 98 F 90 20 110/62 94 L 05/09/18 08:11 05/09/18 09:43 05/09/18 08:11 05/09/18 09:43 05/09/18 08:11 Intake and Output: 05/09/18 05/09/18 06:59 18:59 Intake Total 780 960 Balance 780 960 - Medications Medications: Current Medications Amlodipine Besylate (Norvasc) 10 mg PO DAILY [facility] Last Admin: 05/09/18 09:43 Dose: 10 mg Aspirin (Ecotrin) 81 mg PO DAILY [facility] Last Admin: 05/09/18 09:44 Dose: 81 mg Atorvastatin Calcium (Lipitor) 20 mg PO DIN [facility] Last Admin: 05/09/18 16:47 Dose: 20 mg Citalopram Hydrobromide (Celexa) 10 mg PO DAILY [facility] Last Admin: 05/09/18 09:43 Dose: 10 mg Collagenase (Santyl) 0 gm TOP DAILY [facility] Last Admin: 05/09/18 09:42 Dose: 1 applic Docusate Sodium (Colace) 100 mg PO BID [facility] Last Admin: 05/09/18 09:44 Dose: 100 mg Folic Acid (Folic Acid) 1 mg PO DAILY [facility] Last Admin: 05/09/18 09:43 Dose: 1 mg Insulin Human Regular (Humulin R Low) 0 units SC [facility] PRN Reason: Protocol Last Admin: 05/09/18 16:47 Dose: 2 units Lactulose (Enulose) 20 gm PO DAILY [facility] Last Admin: 05/09/18 09:44 Dose: 20 gm Lisinopril (Zestril) 10 mg PO DAILY [facility] Last Admin: 05/09/18 09:43 Dose: 10 mg Metformin HCl (Glucophage) 500 mg PO BID [facility] Last Admin: 05/09/18 09:44 Dose: 500 mg Multivitamins/Minerals (Therapeutic-M Tab) 1 tab PO 0800 [facility] Last Admin: 05/09/18 09:43 Dose: 1 tab Ondansetron HCl (Zofran Tab) 4 mg PO Q8H PRN PRN Reason: Nausea/Vomiting Last Admin: 04/30/18 12:44 Dose: 4 mg Polyethylene Glycol (Miralax) 17 gm PO BID [facility] Last Admin: 05/09/18 09:44 Dose: 17 gm Thiamine HCl (Vitamin B1 Tab) 100 mg PO DAILY [facility] Last Admin: 05/09/18 09:43 Dose: 100 mg - Labs Labs: 05/03/18 05:45 04/25/18 06:00 PT 12.5 SECONDS (9.4-12.5) 12/09/17 10:00 INR 1.09 (0.93-1.08) H 12/09/17 10:00 APTT 28.3 Seconds (25.1-36.5) 11/30/17 05:30 Attending/Attestation - Attestation I have personally seen and examined this patient.: Yes I have fully participated in the care of the patient.: Yes I have reviewed all pertinent clinical information, including history, physical exam and plan: Yes Notes (Text): 05/09/18 16:58 57 year old male who was admitted with altered mental status found to have CVA, bacteremia, right gluteal cellulitis and multifocal pneumonia. He is s/p antibiotics treatment. His mental status appears at his baseline. Court date has been postponed to early next month now. Sixto Galo MD Hospitalist.
[2018-05-09] MEDS: Insulin Reg-LOW-Coverage SC SCH ×4 (07:47→21:15)
[2018-05-09] MEDS: Collagenase 250 Units/gm Ointment(30 gm) TOP SCH (09:42)
[2018-05-09] MEDS: Multivitamin With Minerals Tab PO SCH (09:43)
[2018-05-09] MEDS: POLYETHYLENE GLYCOL 3350 17 GM/Dose PACKET PO SCH ×2 (09:44→17:06)
--- NOTE | 2018-05-09 14:48 | CP.PCM.PN ---
Subjective - Date & Time of Evaluation Date of Evaluation: 05/09/18 Time of Evaluation: 11:00 - Subjective Subjective: Afebrile, comfortable in bed. Objective - Vital Signs/Intake and Output Vital Signs (last 24 hours): Temp Pulse Resp BP Pulse Ox 98 F 90 20 110/62 94 L 05/09/18 08:11 05/09/18 09:43 05/09/18 08:11 05/09/18 09:43 05/09/18 08:11 Intake and Output: 05/09/18 05/09/18 06:59 18:59 Intake Total 780 Balance 780 - Medications Medications: Current Medications Amlodipine Besylate (Norvasc) 10 mg PO DAILY [facility] Last Admin: 05/09/18 09:43 Dose: 10 mg Aspirin (Ecotrin) 81 mg PO DAILY [facility] Last Admin: 05/09/18 09:44 Dose: 81 mg Atorvastatin Calcium (Lipitor) 20 mg PO DIN [facility] Last Admin: 05/08/18 17:36 Dose: 20 mg Citalopram Hydrobromide (Celexa) 10 mg PO DAILY [facility] Last Admin: 05/09/18 09:43 Dose: 10 mg Collagenase (Santyl) 0 gm TOP DAILY [facility] Last Admin: 05/09/18 09:42 Dose: 1 applic Docusate Sodium (Colace) 100 mg PO BID [facility] Last Admin: 05/09/18 09:44 Dose: 100 mg Folic Acid (Folic Acid) 1 mg PO DAILY [facility] Last Admin: 05/09/18 09:43 Dose: 1 mg Insulin Human Regular (Humulin R Low) 0 units SC [facility] PRN Reason: Protocol Last Admin: 05/09/18 07:47 Dose: Not Given Lactulose (Enulose) 20 gm PO DAILY [facility] Last Admin: 05/09/18 09:44 Dose: 20 gm Lisinopril (Zestril) 10 mg PO DAILY [facility] Last Admin: 05/09/18 09:43 Dose: 10 mg Metformin HCl (Glucophage) 500 mg PO BID [facility] Last Admin: 05/09/18 09:44 Dose: 500 mg Multivitamins/Minerals (Therapeutic-M Tab) 1 tab PO 0800 [facility] Last Admin: 05/09/18 09:43 Dose: 1 tab Ondansetron HCl (Zofran Tab) 4 mg PO Q8H PRN PRN Reason: Nausea/Vomiting Last Admin: 04/30/18 12:44 Dose: 4 mg Polyethylene Glycol (Miralax) 17 gm PO BID [facility] Last Admin: 05/09/18 09:44 Dose: 17 gm Thiamine HCl (Vitamin B1 Tab) 100 mg PO DAILY [facility] Last Admin: 05/09/18 09:43 Dose: 100 mg - Labs Labs: 05/03/18 05:45 04/25/18 06:00 PT 12.5 SECONDS (9.4-12.5) 12/09/17 10:00 INR 1.09 (0.93-1.08) H 12/09/17 10:00 APTT 28.3 Seconds (25.1-36.5) 11/30/17 05:30 - Constitutional Appears: Non-toxic, Chronically Ill - Head Exam Head Exam: NORMAL INSPECTION - Respiratory Exam Respiratory Exam: Decreased Breath Sounds - Cardiovascular Exam Cardiovascular Exam: +S1, +S2 - GI/Abdominal Exam GI & Abdominal Exam: Soft. absent: Tenderness Assessment and Plan - Assessment and Plan (Free Text) Plan: Assessment S/P sepsis due to strep viridans and CoNS bacteremia from right gluteal and back cellulitis S/P multifocal HCAP on top of Influenza A infection S/P Sammie infection of sacral area as well peripheral vascular disease Plan continue to monitor clinically off antibiotics since he is at risk for nosocomial infections
[2018-05-10] MEDS: Insulin Reg-LOW-Coverage SC SCH ×4 (07:56→21:42)
[2018-05-10] MEDS: Multivitamin With Minerals Tab PO SCH (09:14)
[2018-05-10] MEDS: POLYETHYLENE GLYCOL 3350 17 GM/Dose PACKET PO SCH ×2 (09:15→18:13)
[2018-05-10] MEDS: Collagenase 250 Units/gm Ointment(30 gm) TOP SCH (09:15)
--- NOTE | 2018-05-10 12:40 | CP.PCM.PN ---
<Rohit Chisholm - Last Filed: 05/10/18 15:05> Subjective - Date & Time of Evaluation Date of Evaluation: 05/10/18 Time of Evaluation: 06:15 - Subjective Subjective: Rohit Chisholm PGY-1 Progress Note for Hospitalist Service Patient seen and evaluated at bedside. Denies SOB, CP, diarrhea. Reports some pain around R foot ulcer. Objective - Vital Signs/Intake and Output Vital Signs (last 24 hours): Temp Pulse Resp BP Pulse Ox 97.6 F 92 H 20 114/76 92 L 05/10/18 07:30 05/10/18 09:13 05/10/18 07:30 05/10/18 09:14 05/10/18 07:30 - Medications Medications: Current Medications Amlodipine Besylate (Norvasc) 10 mg PO DAILY [facility] Last Admin: 05/10/18 09:14 Dose: 10 mg Aspirin (Ecotrin) 81 mg PO DAILY [facility] Last Admin: 05/10/18 09:14 Dose: 81 mg Atorvastatin Calcium (Lipitor) 20 mg PO DIN [facility] Last Admin: 05/09/18 16:47 Dose: 20 mg Citalopram Hydrobromide (Celexa) 10 mg PO DAILY [facility] Last Admin: 05/10/18 09:14 Dose: 10 mg Collagenase (Santyl) 0 gm TOP DAILY [facility] Last Admin: 05/10/18 09:15 Dose: 1 applic Docusate Sodium (Colace) 100 mg PO BID [facility] Last Admin: 05/10/18 09:14 Dose: 100 mg Folic Acid (Folic Acid) 1 mg PO DAILY [facility] Last Admin: 05/10/18 09:14 Dose: 1 mg Insulin Human Regular (Humulin R Low) 0 units SC ACHS [facility] PRN Reason: Protocol Last Admin: 05/10/18 11:57 Dose: Not Given Lisinopril (Zestril) 10 mg PO DAILY [facility] Last Admin: 05/10/18 09:13 Dose: 10 mg Metformin HCl (Glucophage) 500 mg PO BID [facility] Last Admin: 05/10/18 09:14 Dose: 500 mg Multivitamins/Minerals (Therapeutic-M Tab) 1 tab PO 0800 [facility] Last Admin: 05/10/18 09:14 Dose: 1 tab Ondansetron HCl (Zofran Tab) 4 mg PO Q8H PRN PRN Reason: Nausea/Vomiting Last Admin: 04/30/18 12:44 Dose: 4 mg Polyethylene Glycol (Miralax) 17 gm PO BID [facility] Last Admin: 05/10/18 09:15 Dose: 17 gm Thiamine HCl (Vitamin B1 Tab) 100 mg PO DAILY [facility] Last Admin: 05/10/18 09:14 Dose: 100 mg - Labs Labs: 05/03/18 05:45 04/25/18 06:00 PT 12.5 SECONDS (9.4-12.5) 12/09/17 10:00 INR 1.09 (0.93-1.08) H 12/09/17 10:00 APTT 28.3 Seconds (25.1-36.5) 11/30/17 05:30 - Constitutional Appears: Well, Non-toxic, No Acute Distress - Head Exam Head Exam: ATRAUMATIC, NORMAL INSPECTION, NORMOCEPHALIC - Eye Exam Eye Exam: EOMI, Normal appearance, PERRL - ENT Exam ENT Exam: Mucous Membranes Moist - Neck Exam Neck Exam: Full ROM - Respiratory Exam Respiratory Exam: Clear to Ausculation Bilateral, NORMAL BREATHING PATTERN. absent: Rhonchi, Wheezes - Cardiovascular Exam Cardiovascular Exam: RRR, +S1, +S2 - GI/Abdominal Exam GI & Abdominal Exam: Soft, Normal Bowel Sounds. absent: Guarding, Tenderness - Extremities Exam Extremities Exam: Tenderness (over R dorsal foor ulcer) Additional comments: R dorsal foot ulcer with some minor surrounding erythema. No discharge. - Neurological Exam Neurological Exam: Alert, Awake - Psychiatric Exam Psychiatric exam: Flat Affect - Skin Skin Exam: Dry, Normal Color, Warm Assessment and Plan - Assessment and Plan (Free Text) Assessment: Mr. Montano is a 57 year old male unknown PMHx admitted on 11/29/17 for AMS, right hip cellulitis, multifocal pneumonia, influenza A, strep viridians bacteremia with findings of stroke on MRI - acute vs. 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 Patient was treated for bacteremia with IV abx. Guardianship establishment pending court date, which was rescheduled for early May. Altered mental status At baseline this AM; AAOx1 on evaluation. Cont. delirium precautions PT -patient refusing to participate Cont ASA 81 QD / LIPITOR 20 QD Dorsal Right and Left Foot Ulcer Bandaged. Non purulent. Podiatry recommendations appreciated Wound care following Started medihoney f/u AM labs Coag negative Staphylococcus bacteremia - resolved Last bld clx negative 12/04/17 with completion of 6 week course of antibiotics Monitor WBC, ESR, CRP weekly Echocardiogram unable to rule out vegetations, family is unavailable for consent for TAHIR Colonic mass CT Abd/Pelvis showing colonic mass and hepatic lesions GI consulted: follow recs Flex sig/colonoscopy refused by patient Family unable to be contacted for consent Diabetes mellitus type 2 Cont RISS low Cont Metformin 500mg BID Cont accuchecks Carb consistent diet HTN BP Stable, continue to monitor Cont Lisinopril 10 QD Cont Amlodipine 10 mg PO QD Affective disorder Cont Celexa 10mg PO Daily Constipation Colace 100mg BID Miralax 17gm BID Discontinued Lactulose Hx EtOH Abuse Cont Thiamine Cont Folic Acid Cont Multivitamin DVT Prophylaxis: SCDs Dispo: Patient continues to display a lack of decision making capacity: Guardianship status to be determined; Court date for guardianship postponed to early May. Patient seen, case reviewed, and plan agreed upon with Dr. Schumacher. Rohit Chisholm, PGY-1 <Deanna Schumacher - Last Filed: 05/10/18 17:15> Objective - Vital Signs/Intake and Output Vital Signs (last 24 hours): Temp Pulse Resp BP Pulse Ox 97.6 F 92 H 20 114/76 92 L 05/10/18 07:30 05/10/18 09:13 05/10/18 07:30 05/10/18 09:14 05/10/18 07:30 Intake and Output: 05/10/18 05/10/18 06:59 18:59 Intake Total 760 Balance 760 - Medications Medications: Current Medications Amlodipine Besylate (Norvasc) 10 mg PO DAILY [facility] Last Admin: 05/10/18 09:14 Dose: 10 mg Aspirin (Ecotrin) 81 mg PO DAILY [facility] Last Admin: 05/10/18 09:14 Dose: 81 mg Atorvastatin Calcium (Lipitor) 20 mg PO DIN [facility] Last Admin: 05/09/18 16:47 Dose: 20 mg Citalopram Hydrobromide (Celexa) 10 mg PO DAILY [facility] Last Admin: 05/10/18 09:14 Dose: 10 mg Collagenase (Santyl) 0 gm TOP DAILY [facility] Last Admin: 05/10/18 09:15 Dose: 1 applic Docusate Sodium (Colace) 100 mg PO BID [facility] Last Admin: 05/10/18 09:14 Dose: 100 mg Folic Acid (Folic Acid) 1 mg PO DAILY [facility] Last Admin: 05/10/18 09:14 Dose: 1 mg Insulin Human Regular (Humulin R Low) 0 units SC ACHS [facility] PRN Reason: Protocol Last Admin: 05/10/18 11:57 Dose: Not Given Lisinopril (Zestril) 10 mg PO DAILY [facility] Last Admin: 05/10/18 09:13 Dose: 10 mg Metformin HCl (Glucophage) 500 mg PO BID [facility] Multivitamins/Minerals (Therapeutic-M Tab) 1 tab PO 0800 [facility] Last Admin: 05/10/18 09:14 Dose: 1 tab Ondansetron HCl (Zofran Tab) 4 mg PO Q8H PRN PRN Reason: Nausea/Vomiting Last Admin: 04/30/18 12:44 Dose: 4 mg Polyethylene Glycol (Miralax) 17 gm PO BID [facility] Last Admin: 05/10/18 09:15 Dose: 17 gm Thiamine HCl (Vitamin B1 Tab) 100 mg PO DAILY [facility] Last Admin: 05/10/18 09:14 Dose: 100 mg - Labs Labs: 05/03/18 05:45 04/25/18 06:00 PT 12.5 SECONDS (9.4-12.5) 12/09/17 10:00 INR 1.09 (0.93-1.08) H 12/09/17 10:00 APTT 28.3 Seconds (25.1-36.5) 11/30/17 05:30 Attending/Attestation - Attestation I have personally seen and examined this patient.: Yes I have fully participated in the care of the patient.: Yes I have reviewed all pertinent clinical information, including history, physical exam and plan: Yes Notes (Text): 05/10/18 17:13 Medical record note made by the resident after discussion with my direction and input after the patient was personally seen and examined by me. I have reviewed the chart and agree that the record accurately reflects by personal performance of the history, physical exam, data review, and medical decision-making, in the course for the patient. I have also personally directed the plan of care. Patient is at his base line.He is awaiting guardianship paper work for placement. Continue current medication and supportive care. Prognosis is guarded.
--- NOTE | 2018-05-10 15:24 | CP.PCM.PN ---
<Kei Johnson - Last Filed: 05/10/18 15:20> Subjective - Date & Time of Evaluation Date of Evaluation: 05/10/18 Time of Evaluation: 11:00 - Subjective Subjective: Progress Note for Dr. Davis 57 y.o male seen and evaluated at bedside for right anterior ankle ulceration and left ankle abrasion. Patient is in NAD. Patient denies any discomfort. No other pedal complaints. Objective - Vital Signs/Intake and Output Vital Signs (last 24 hours): Temp Pulse Resp BP Pulse Ox 97.6 F 92 H 20 114/76 92 L 05/10/18 07:30 05/10/18 09:13 05/10/18 07:30 05/10/18 09:14 05/10/18 07:30 Intake and Output: 05/10/18 05/10/18 06:59 18:59 Intake Total 760 Balance 760 - Medications Medications: Current Medications Amlodipine Besylate (Norvasc) 10 mg PO DAILY [facility] Last Admin: 05/10/18 09:14 Dose: 10 mg Aspirin (Ecotrin) 81 mg PO DAILY [facility] Last Admin: 05/10/18 09:14 Dose: 81 mg Atorvastatin Calcium (Lipitor) 20 mg PO DIN [facility] Last Admin: 05/09/18 16:47 Dose: 20 mg Citalopram Hydrobromide (Celexa) 10 mg PO DAILY [facility] Last Admin: 05/10/18 09:14 Dose: 10 mg Collagenase (Santyl) 0 gm TOP DAILY [facility] Last Admin: 05/10/18 09:15 Dose: 1 applic Docusate Sodium (Colace) 100 mg PO BID [facility] Last Admin: 05/10/18 09:14 Dose: 100 mg Folic Acid (Folic Acid) 1 mg PO DAILY [facility] Last Admin: 05/10/18 09:14 Dose: 1 mg Insulin Human Regular (Humulin R Low) 0 units SC [facility] PRN Reason: Protocol Last Admin: 05/10/18 11:57 Dose: Not Given Lisinopril (Zestril) 10 mg PO DAILY [facility] Last Admin: 05/10/18 09:13 Dose: 10 mg Metformin HCl (Glucophage) 500 mg PO BID [facility] Multivitamins/Minerals (Therapeutic-M Tab) 1 tab PO 0800 [facility] Last Admin: 05/10/18 09:14 Dose: 1 tab Ondansetron HCl (Zofran Tab) 4 mg PO Q8H PRN PRN Reason: Nausea/Vomiting Last Admin: 04/30/18 12:44 Dose: 4 mg Polyethylene Glycol (Miralax) 17 gm PO BID [facility] Last Admin: 05/10/18 09:15 Dose: 17 gm Thiamine HCl (Vitamin B1 Tab) 100 mg PO DAILY [facility] Last Admin: 05/10/18 09:14 Dose: 100 mg - Labs Labs: 05/03/18 05:45 04/25/18 06:00 PT 12.5 SECONDS (9.4-12.5) 12/09/17 10:00 INR 1.09 (0.93-1.08) H 12/09/17 10:00 APTT 28.3 Seconds (25.1-36.5) 11/30/17 05:30 - Constitutional Appears: Well, Non-toxic, No Acute Distress - Extremities Exam Extremities Exam: absent: Calf Tenderness Additional comments: B/L Lower extremity exam: VASC: DP and PT faintly palpable, CFT delayed > 3 seconds x 10 digits, temperature gradient cool to cool, no edema noted to the lower extremity NEURO: difficult to assess DERM: Right: ulceration noted to the anterior aspect of right ankle at the level of the ankle joint measuring approximately 2 x 2 cm with necrotic scab, depth appears to be superficial, no streaking, no drainage, no tunneling, no abscess, no odor or drainage, no abscess or fluctanance noted, no clinical signs of infection Left: Superficial abrasion noted to the anterior aspect of left ankle with scabbing over. No streaking, no drainage, no tunneling, no abscess, no lifting of the scab noted, no odor or drainage, no abscess or fluctanance noted, no clinical signs of infection ORTHO: no pain with palpation to the entire lower extremity, MMT hard to assess. - Neurological Exam Neurological Exam: Alert, Awake - Psychiatric Exam Psychiatric exam: Normal Affect, Normal Mood Assessment and Plan - Assessment and Plan (Free Text) Assessment: 57 y.o male with 1) right anterior ankle ulceration 2) left ankle superficial abrasion -stable, no infection Plan: Patient examined and evaluated Plan discussed with Dr. Davis Chart, labs and vitals reviewed; Afebrile, absent leukocytosis Applied Santyl and optifoam for the right anterior ankle ulceration and covered with kerlix Optifoam to left anterior ankle Will continue to follow while patient in house <Raciel Davis - Last Filed: 05/10/18 16:25> Objective - Vital Signs/Intake and Output Vital Signs (last 24 hours): Temp Pulse Resp BP Pulse Ox 97.6 F 92 H 20 114/76 92 L 05/10/18 07:30 05/10/18 09:13 05/10/18 07:30 05/10/18 09:14 05/10/18 07:30 Intake and Output: 05/10/18 05/10/18 06:59 18:59 Intake Total 760 Balance 760 - Medications Medications: Current Medications Amlodipine Besylate (Norvasc) 10 mg PO DAILY [facility] Last Admin: 05/10/18 09:14 Dose: 10 mg Aspirin (Ecotrin) 81 mg PO DAILY [facility] Last Admin: 05/10/18 09:14 Dose: 81 mg Atorvastatin Calcium (Lipitor) 20 mg PO DIN [facility] Last Admin: 05/09/18 16:47 Dose: 20 mg Citalopram Hydrobromide (Celexa) 10 mg PO DAILY [facility] Last Admin: 05/10/18 09:14 Dose: 10 mg Collagenase (Santyl) 0 gm TOP DAILY [facility] Last Admin: 05/10/18 09:15 Dose: 1 applic Docusate Sodium (Colace) 100 mg PO BID [facility] Last Admin: 05/10/18 09:14 Dose: 100 mg Folic Acid (Folic Acid) 1 mg PO DAILY [facility] Last Admin: 05/10/18 09:14 Dose: 1 mg Insulin Human Regular (Humulin R Low) 0 units SC [facility] PRN Reason: Protocol Last Admin: 05/10/18 11:57 Dose: Not Given Lisinopril (Zestril) 10 mg PO DAILY [facility] Last Admin: 05/10/18 09:13 Dose: 10 mg Metformin HCl (Glucophage) 500 mg PO BID [facility] Multivitamins/Minerals (Therapeutic-M Tab) 1 tab PO 0800 [facility] Last Admin: 05/10/18 09:14 Dose: 1 tab Ondansetron HCl (Zofran Tab) 4 mg PO Q8H PRN PRN Reason: Nausea/Vomiting Last Admin: 04/30/18 12:44 Dose: 4 mg Polyethylene Glycol (Miralax) 17 gm PO BID [facility] Last Admin: 05/10/18 09:15 Dose: 17 gm Thiamine HCl (Vitamin B1 Tab) 100 mg PO DAILY [facility] Last Admin: 05/10/18 09:14 Dose: 100 mg - Labs Labs: 05/03/18 05:45 04/25/18 06:00 PT 12.5 SECONDS (9.4-12.5) 12/09/17 10:00 INR 1.09 (0.93-1.08) H 12/09/17 10:00 APTT 28.3 Seconds (25.1-36.5) 11/30/17 05:30 Attending/Attestation - Attestation I have personally seen and examined this patient.: Yes I have fully participated in the care of the patient.: Yes I have reviewed all pertinent clinical information, including history, physical exam and plan: Yes
[2018-05-11 06:52] LABS: BASO # 0.03 K/mm3 (0.0-2.0); BASO % 0.3 % (0.0-3.0); EOS # 0.2 (0.0-0.7); EOS % 1.8 % (1.5-5.0); GRAN # 5.89 (1.4-6.5); GRAN % 58.2 % (50.0-68.0); HEMOGLOBIN 10.6 g/dL (14.0-18.0); LYMPH # 2.9 (1.2-3.4); LYMPH % 28.8 % (22.0-35.0); MEAN CELL VOLUME 78.5 fl (80.0-105.0); MEAN CORPUSCULAR HEMOGLOBIN 25.9 pg (25.0-35.0); MEAN CORPUSCULAR HGB CONC 32.9 g/dl (31.0-37.0); MEAN PLATELET VOLUME 9.1 fl (7.0-11.0); MONO # 1.1 (0.1-0.6); MONO % 10.9 % (1.0-6.0); RBC 4.1 10^6/uL (3.5-6.1); WHITE BLOOD COUNT 10.1 10^3/ul (4.5-11.0)
[2018-05-11 07:10] LABS: ALB/GLOB RATIO 1.1 (1.1-1.8); ALBUMIN 3.8 g/dL (3.0-4.8); ALT/SGPT 30 U/L (7-56); AST/SGOT 47 U/L (17-59); BLOOD UREA NITROGEN 18 mg/dL (7-21); CALCIUM 9.4 mg/dL (8.4-10.5); GFR NON-AFRICAN AMERICAN > 60
[2018-05-11] MEDS: Insulin Reg-LOW-Coverage SC SCH ×4 (07:45→22:22)
--- NOTE | 2018-05-11 08:22 | CP.PCM.PN ---
<Rohit Chisholm - Last Filed: 05/11/18 15:48> Subjective - Date & Time of Evaluation Date of Evaluation: 05/11/18 Time of Evaluation: 06:10 - Subjective Subjective: Rohit Chisholm PGY-1 Progress Note for Hospitalist Service Patient seen and evaluated at bedside. No acute complaints overnight. Mild pain reported over R dorsal foot ulcer. Objective - Vital Signs/Intake and Output Vital Signs (last 24 hours): Temp Pulse Resp BP Pulse Ox 98.2 F 86 20 103/64 96 05/11/18 07:49 05/11/18 07:49 05/11/18 07:49 05/11/18 07:49 05/11/18 07:49 Intake and Output: 05/11/18 05/11/18 06:59 18:59 Intake Total 0 Balance 0 - Medications Medications: Current Medications Amlodipine Besylate (Norvasc) 10 mg PO DAILY [facility] Last Admin: 05/10/18 09:14 Dose: 10 mg Aspirin (Ecotrin) 81 mg PO DAILY [facility] Last Admin: 05/10/18 09:14 Dose: 81 mg Atorvastatin Calcium (Lipitor) 20 mg PO DIN [facility] Last Admin: 05/10/18 18:13 Dose: 20 mg Citalopram Hydrobromide (Celexa) 10 mg PO DAILY [facility] Last Admin: 05/10/18 09:14 Dose: 10 mg Collagenase (Santyl) 0 gm TOP DAILY [facility] Last Admin: 05/10/18 09:15 Dose: 1 applic Docusate Sodium (Colace) 100 mg PO BID [facility] Last Admin: 05/10/18 18:12 Dose: 100 mg Folic Acid (Folic Acid) 1 mg PO DAILY [facility] Last Admin: 05/10/18 09:14 Dose: 1 mg Insulin Human Regular (Humulin R Low) 0 units SC [facility] PRN Reason: Protocol Last Admin: 05/10/18 21:42 Dose: Not Given Lisinopril (Zestril) 10 mg PO DAILY [facility] Last Admin: 05/10/18 09:13 Dose: 10 mg Metformin HCl (Glucophage) 500 mg PO BID [facility] Last Admin: 05/10/18 18:12 Dose: 500 mg Multivitamins/Minerals (Therapeutic-M Tab) 1 tab PO 0800 [facility] Last Admin: 05/10/18 09:14 Dose: 1 tab Ondansetron HCl (Zofran Tab) 4 mg PO Q8H PRN PRN Reason: Nausea/Vomiting Last Admin: 04/30/18 12:44 Dose: 4 mg Polyethylene Glycol (Miralax) 17 gm PO BID [facility] Last Admin: 05/10/18 18:13 Dose: 17 gm Thiamine HCl (Vitamin B1 Tab) 100 mg PO DAILY [facility] Last Admin: 05/10/18 09:14 Dose: 100 mg - Labs Labs: 05/11/18 06:20 05/11/18 06:20 PT 12.5 SECONDS (9.4-12.5) 12/09/17 10:00 INR 1.09 (0.93-1.08) H 12/09/17 10:00 APTT 28.3 Seconds (25.1-36.5) 11/30/17 05:30 - Constitutional Appears: Well, Non-toxic, No Acute Distress - Head Exam Head Exam: ATRAUMATIC, NORMAL INSPECTION, NORMOCEPHALIC - Eye Exam Eye Exam: EOMI, Normal appearance Pupil Exam: PERRL - ENT Exam ENT Exam: Mucous Membranes Moist - Neck Exam Neck Exam: Full ROM - Respiratory Exam Respiratory Exam: Clear to Ausculation Bilateral, NORMAL BREATHING PATTERN. absent: Rales, Wheezes - Cardiovascular Exam Cardiovascular Exam: RRR, +S1, +S2 - GI/Abdominal Exam GI & Abdominal Exam: Soft, Normal Bowel Sounds. absent: Tenderness - Extremities Exam Extremities Exam: absent: Calf Tenderness Additional comments: R ulcer on dorsal foot bandaged. - Psychiatric Exam Psychiatric exam: Flat Affect - Skin Skin Exam: Dry, Normal Color, Warm Assessment and Plan - Assessment and Plan (Free Text) Assessment: Mr. Montano is a 57 year old male unknown PMHx admitted on 11/29/17 for AMS, right hip cellulitis, multifocal pneumonia, influenza A, strep viridians bacteremia with findings of stroke on MRI - acute vs. 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 Patient was treated for bacteremia with IV abx. Guardianship establishment pending court date, which was rescheduled for early May. Altered mental status At baseline this AM; AAOx1 on evaluation. Cont. delirium precautions PT -patient refusing to participate Cont ASA 81 QD / LIPITOR 20 QD Dorsal Right Foot Ulcer Bandaged. Non purulent. Podiatry recommendations appreciated Wound care following Started medihoney Coag negative Staphylococcus bacteremia - resolved Last bld clx negative 12/04/17 with completion of 6 week course of antibiotics Monitor WBC, ESR, CRP weekly Echocardiogram unable to rule out vegetations, family is unavailable for consent for TAHIR Colonic mass CT Abd/Pelvis showing colonic mass and hepatic lesions GI consulted: follow recs Flex sig/colonoscopy refused by patient Family unable to be contacted for consent Diabetes mellitus type 2 Cont RISS low Cont Metformin 500mg BID Cont accuchecks Carb consistent diet HTN BP Stable, continue to monitor Cont Lisinopril 10 QD Cont Amlodipine 10 mg PO QD Affective disorder Cont Celexa 10mg PO Daily Constipation Colace 100mg BID Miralax 17gm BID Discontinued Lactulose Hx EtOH Abuse Cont Thiamine Cont Folic Acid Cont Multivitamin DVT Prophylaxis: SCDs Dispo: Patient continues to display a lack of decision making capacity: Guardianship status to be determined; Court date for guardianship postponed to early May. Patient seen, case reviewed, and plan agreed upon with Dr. Schumacher. Rohit Chisholm, PGY-1 <Deanna Schumacher - Last Filed: 05/12/18 15:13> Objective - Vital Signs/Intake and Output Vital Signs (last 24 hours): Temp Pulse Resp BP Pulse Ox 97 F L 90 20 125/75 94 L 05/12/18 08:18 05/12/18 08:18 05/12/18 08:18 05/12/18 08:18 05/12/18 08:18 Intake and Output: 05/12/18 05/12/18 06:59 18:59 Intake Total 1500 Balance 1500 - Medications Medications: Current Medications Amlodipine Besylate (Norvasc) 10 mg PO DAILY [facility] Last Admin: 05/11/18 10:07 Dose: Not Given Aspirin (Ecotrin) 81 mg PO DAILY [facility] Last Admin: 05/11/18 10:04 Dose: 81 mg Atorvastatin Calcium (Lipitor) 20 mg PO DIN [facility] Last Admin: 05/11/18 18:01 Dose: 20 mg Citalopram Hydrobromide (Celexa) 10 mg PO DAILY [facility] Last Admin: 05/11/18 10:03 Dose: 10 mg Collagenase (Santyl) 0 gm TOP DAILY [facility] Last Admin: 05/11/18 10:07 Dose: 1 applic Docusate Sodium (Colace) 100 mg PO BID [facility] Last Admin: 05/11/18 18:00 Dose: 100 mg Insulin Human Regular (Humulin R Low) 0 units SC ACHS [facility] PRN Reason: Protocol Last Admin: 05/11/18 22:22 Dose: Not Given Lisinopril (Zestril) 10 mg PO DAILY [facility] Last Admin: 05/11/18 10:08 Dose: Not Given Metformin HCl (Glucophage) 500 mg PO BID [facility] Last Admin: 05/11/18 18:00 Dose: 500 mg Multivitamins/Minerals (Therapeutic-M Tab) 1 tab PO 0800 [facility] Last Admin: 05/11/18 10:08 Dose: 1 tab Ondansetron HCl (Zofran Tab) 4 mg PO Q8H PRN PRN Reason: Nausea/Vomiting Last Admin: 05/11/18 15:14 Dose: 4 mg Polyethylene Glycol (Miralax) 17 gm PO BID [facility] Last Admin: 05/11/18 18:03 Dose: 17 gm Thiamine HCl (Vitamin B1 Tab) 100 mg PO DAILY [facility] Last Admin: 05/11/18 10:08 Dose: 100 mg - Labs Labs: 05/11/18 06:20 05/11/18 06:20 PT 12.5 SECONDS (9.4-12.5) 12/09/17 10:00 INR 1.09 (0.93-1.08) H 12/09/17 10:00 APTT 28.3 Seconds (25.1-36.5) 11/30/17 05:30 Attending/Attestation - Attestation I have personally seen and examined this patient.: Yes I have fully participated in the care of the patient.: Yes I have reviewed all pertinent clinical information, including history, physical exam and plan: Yes Notes (Text): 05/12/18 15:13 Medical record note made by the resident after discussion with my direction and input after the patient was personally seen and examined by me. I have reviewed the chart and agree that the record accurately reflects by personal performance of the history, physical exam, data review, and medical decision-making, in the course for the patient. I have also personally directed the plan of care.
[2018-05-11] MEDS: POLYETHYLENE GLYCOL 3350 17 GM/Dose PACKET PO SCH ×2 (10:06→18:03)
[2018-05-11] MEDS: Collagenase 250 Units/gm Ointment(30 gm) TOP SCH (10:07)
[2018-05-11] MEDS: Multivitamin With Minerals Tab PO SCH (10:08)
--- NOTE | 2018-05-11 12:23 | PN ---
DATE: 05/11/2018 SUBJECTIVE: The patient is in bed, in no acute distress, nontoxic, was seen early this morning in room 353, bed 1. PHYSICAL EXAMINATION: VITAL SIGNS: Temperature is 98, blood pressure is 112/70, respiratory rate of 16. HEENT: Unremarkable. NECK: Supple. LUNGS: Decreased breath sounds. HEART: Normal S1, S2. ABDOMEN: Soft, nontender. LABORATORY EXAMINATION: Reviewed. ASSESSMENT AND PLAN: This is a 57-year-old male who was initially admitted with sepsis due to streptococcus viridans, coagulase negative staphylococcus bacteremia from a gluteal abscess, and back cellulitis and with multifocal healthcare associated pneumonia on top of influenza A. Currently now off antibiotics, has completed his antibiotic therapy; however, the patient is at risk for developing nosocomial infection. Daniel Torres MD
--- NOTE | 2018-05-11 23:42 | PN ---
DATE: 05/10/2018 SUBJECTIVE: The patient seen yesterday in room 363. No fevers, no chills. PHYSICAL EXAMINATION: VITAL SIGNS: On exam, temperature 98, blood pressure is 104/70, respiratory of 16. HEENT: Unremarkable. NECK: Supple. LUNGS: Have decreased breath sounds. HEART: Normal S1 and S2. ABDOMEN: Soft. LABORATORY DATA: Reveals a white count is 10,000. ASSESSMENT AND PLAN: This is a 57-year-old male who was initially admitted with Streptococcus viridans and coagulase-negative staph bacteremia secondary to gluteal abscess, back cellulitis, healthcare-associated pneumonia, influenza A. Completed antibiotic therapy. Currently off of antibiotics. Daniel Torres MD
[2018-05-12] MEDS: Insulin Reg-LOW-Coverage SC SCH ×4 (07:30→21:55)
[2018-05-12] MEDS: Multivitamin With Minerals Tab PO SCH (10:00)
[2018-05-12] MEDS: POLYETHYLENE GLYCOL 3350 17 GM/Dose PACKET PO SCH ×2 (10:00→17:01)
[2018-05-12] MEDS: Collagenase 250 Units/gm Ointment(30 gm) TOP SCH (10:00)
--- NOTE | 2018-05-12 10:44 | CP.PCM.PN ---
<Kei Johnson - Last Filed: 05/12/18 10:41> Subjective - Date & Time of Evaluation Date of Evaluation: 05/12/18 Time of Evaluation: 10:41 - Subjective Subjective: Podiatry Progress Note- Dr. Oakley 57 y.o male seen and evaluated at bedside for right anterior ulceration and left ankle abrasion. Patient is seen resting comfortably in bed, in NAD, denies acute overnight nights. Denies pain to the lower extremities bilaterally. Dressing c/d/i. No strikethrough. Denies nausea, fever, shortness of breath, chest pains or chills. No other pedal complaints at this time. Objective - Vital Signs/Intake and Output Vital Signs (last 24 hours): Temp Pulse Resp BP Pulse Ox 97 F L 90 20 125/75 94 L 05/12/18 08:18 05/12/18 08:18 05/12/18 08:18 05/12/18 08:18 05/12/18 08:18 Intake and Output: 05/12/18 05/12/18 06:59 18:59 Intake Total 1500 Balance 1500 - Medications Medications: Current Medications Amlodipine Besylate (Norvasc) 10 mg PO DAILY [facility] Last Admin: 05/11/18 10:07 Dose: Not Given Aspirin (Ecotrin) 81 mg PO DAILY [facility] Last Admin: 05/11/18 10:04 Dose: 81 mg Atorvastatin Calcium (Lipitor) 20 mg PO DIN [facility] Last Admin: 05/11/18 18:01 Dose: 20 mg Citalopram Hydrobromide (Celexa) 10 mg PO DAILY [facility] Last Admin: 05/11/18 10:03 Dose: 10 mg Collagenase (Santyl) 0 gm TOP DAILY [facility] Last Admin: 05/11/18 10:07 Dose: 1 applic Docusate Sodium (Colace) 100 mg PO BID [facility] Last Admin: 05/11/18 18:00 Dose: 100 mg Insulin Human Regular (Humulin R Low) 0 units SC ACHS [facility] PRN Reason: Protocol Last Admin: 05/11/18 22:22 Dose: Not Given Lisinopril (Zestril) 10 mg PO DAILY [facility] Last Admin: 05/11/18 10:08 Dose: Not Given Metformin HCl (Glucophage) 500 mg PO BID [facility] Last Admin: 07/25/18 18:00 Dose: 500 mg Multivitamins/Minerals (Therapeutic-M Tab) 1 tab PO 0800 [facility] Last Admin: 05/11/18 10:08 Dose: 1 tab Ondansetron HCl (Zofran Tab) 4 mg PO Q8H PRN PRN Reason: Nausea/Vomiting Last Admin: 05/11/18 15:14 Dose: 4 mg Polyethylene Glycol (Miralax) 17 gm PO BID [facility] Last Admin: 05/11/18 18:03 Dose: 17 gm Thiamine HCl (Vitamin B1 Tab) 100 mg PO DAILY [facility] Last Admin: 05/11/18 10:08 Dose: 100 mg - Labs Labs: 05/11/18 06:20 05/11/18 06:20 PT 12.5 SECONDS (9.4-12.5) 12/09/17 10:00 INR 1.09 (0.93-1.08) H 12/09/17 10:00 APTT 28.3 Seconds (25.1-36.5) 11/30/17 05:30 - Constitutional Appears: Well, Non-toxic, No Acute Distress - Extremities Exam Extremities Exam: absent: Calf Tenderness Additional comments: B/L Lower extremity exam: VASC: DP and PT faintly palpable, CFT delayed > 3 seconds x 10 digits, temperature gradient cool to cool, no edema noted to the lower extremity NEURO: difficult to assess DERM: Right: ulceration noted to the anterior aspect of right ankle at the level of the ankle joint measuring approximately 2 x 2 cm with necrotic scab sloughing off with wound base being fibrotic underlying, no streaking, no drainage, no tunneling, no abscess, no odor or drainage, no abscess or fluctanance noted, no clinical signs of infection. Thin erythema rim likely secondary to irritation. Left: Superficial abrasion noted to the anterior aspect of left ankle with scabbing over. No streaking, no drainage, no tunneling, no abscess, no lifting of the scab noted, no odor or drainage, no abscess or fluctanance noted, no clinical signs of infection ORTHO: no pain with palpation to the entire lower extremity, MMT hard to assess. - Neurological Exam Neurological Exam: Alert, Awake - Psychiatric Exam Psychiatric exam: Normal Affect, Normal Mood Assessment and Plan - Assessment and Plan (Free Text) Assessment: 57 y.o male with 1) right anterior ankle ulceration 2) left ankle superficial abrasion -stable, no infection Plan: Patient examined and evaluated Plan discussed with Dr. Oakley Chart, labs and vitals reviewed; Afebrile, absent leukocytosis Cleansed ulcerations. Applied Santyl and optifoam for the right anterior ankle ulceration and covered with kerlix Left ankle superficial abrasion left open to air dry Will continue to follow while patient in house <Ivania Oakley - Last Filed: 05/14/18 16:45> Objective - Vital Signs/Intake and Output Vital Signs (last 24 hours): Temp Pulse Resp BP Pulse Ox 97.5 F L 91 H 20 116/77 94 L 05/14/18 08:07 05/14/18 08:07 05/14/18 08:07 05/14/18 08:07 05/14/18 08:07 - Medications Medications: Current Medications Amlodipine Besylate (Norvasc) 10 mg PO DAILY [facility] Last Admin: 05/14/18 11:22 Dose: Not Given Aspirin (Ecotrin) 81 mg PO DAILY [facility] Last Admin: 05/14/18 11:18 Dose: Not Given Atorvastatin Calcium (Lipitor) 20 mg PO DIN [facility] Last Admin: 05/13/18 17:28 Dose: 20 mg Citalopram Hydrobromide (Celexa) 10 mg PO DAILY [facility] Last Admin: 05/14/18 11:17 Dose: Not Given Collagenase (Santyl) 0 gm TOP DAILY [facility] Last Admin: 05/14/18 11:25 Dose: 1 applic Docusate Sodium (Colace) 100 mg PO BID [facility] Last Admin: 05/14/18 11:18 Dose: Not Given Insulin Human Regular (Humulin R Low) 0 units SC [facility] PRN Reason: Protocol Last Admin: 05/14/18 08:00 Dose: Not Given Lisinopril (Zestril) 10 mg PO DAILY [facility] Last Admin: 05/14/18 11:32 Dose: Not Given Metformin HCl (Glucophage) 500 mg PO BID [facility] Last Admin: 05/14/18 11:18 Dose: Not Given Multivitamins/Minerals (Therapeutic-M Tab) 1 tab PO 0800 [facility] Last Admin: 05/14/18 11:32 Dose: 1 tab Ondansetron HCl (Zofran Tab) 4 mg PO Q8H PRN PRN Reason: Nausea/Vomiting Last Admin: 05/11/18 15:14 Dose: 4 mg Polyethylene Glycol (Miralax) 17 gm PO BID [facility] Last Admin: 05/14/18 11:18 Dose: Not Given Thiamine HCl (Vitamin B1 Tab) 100 mg PO DAILY [facility] Last Admin: 05/14/18 11:32 Dose: Not Given - Labs Labs: 05/11/18 06:20 05/11/18 06:20 PT 12.5 SECONDS (9.4-12.5) 12/09/17 10:00 INR 1.09 (0.93-1.08) H 12/09/17 10:00 APTT 28.3 Seconds (25.1-36.5) 11/30/17 05:30 Attending/Attestation - Attestation I have personally seen and examined this patient.: Yes I have fully participated in the care of the patient.: Yes I have reviewed all pertinent clinical information, including history, physical exam and plan: Yes
--- NOTE | 2018-05-12 12:07 | CP.PCM.PN ---
Subjective - Date & Time of Evaluation Date of Evaluation: 05/12/18 Time of Evaluation: 09:50 - Subjective Subjective: No fevers, not in distress, no diarrhea. Objective - Vital Signs/Intake and Output Vital Signs (last 24 hours): Temp Pulse Resp BP Pulse Ox 97 F L 90 20 125/75 94 L 05/12/18 08:18 05/12/18 08:18 05/12/18 08:18 05/12/18 08:18 05/12/18 08:18 Intake and Output: 05/12/18 05/12/18 06:59 18:59 Intake Total 1500 Balance 1500 - Medications Medications: Current Medications Amlodipine Besylate (Norvasc) 10 mg PO DAILY [facility] Last Admin: 05/11/18 10:07 Dose: Not Given Aspirin (Ecotrin) 81 mg PO DAILY [facility] Last Admin: 05/11/18 10:04 Dose: 81 mg Atorvastatin Calcium (Lipitor) 20 mg PO DIN [facility] Last Admin: 05/11/18 18:01 Dose: 20 mg Citalopram Hydrobromide (Celexa) 10 mg PO DAILY [facility] Last Admin: 05/11/18 10:03 Dose: 10 mg Collagenase (Santyl) 0 gm TOP DAILY [facility] Last Admin: 05/11/18 10:07 Dose: 1 applic Docusate Sodium (Colace) 100 mg PO BID [facility] Last Admin: 05/11/18 18:00 Dose: 100 mg Insulin Human Regular (Humulin R Low) 0 units SC ACHS [facility] PRN Reason: Protocol Last Admin: 05/11/18 22:22 Dose: Not Given Lisinopril (Zestril) 10 mg PO DAILY [facility] Last Admin: 05/11/18 10:08 Dose: Not Given Metformin HCl (Glucophage) 500 mg PO BID [facility] Last Admin: 05/11/18 18:00 Dose: 500 mg Multivitamins/Minerals (Therapeutic-M Tab) 1 tab PO 0800 [facility] Last Admin: 05/11/18 10:08 Dose: 1 tab Ondansetron HCl (Zofran Tab) 4 mg PO Q8H PRN PRN Reason: Nausea/Vomiting Last Admin: 05/11/18 15:14 Dose: 4 mg Polyethylene Glycol (Miralax) 17 gm PO BID [facility] Last Admin: 05/11/18 18:03 Dose: 17 gm Thiamine HCl (Vitamin B1 Tab) 100 mg PO DAILY [facility] Last Admin: 05/11/18 10:08 Dose: 100 mg - Labs Labs: 05/11/18 06:20 05/11/18 06:20 PT 12.5 SECONDS (9.4-12.5) 12/09/17 10:00 INR 1.09 (0.93-1.08) H 12/09/17 10:00 APTT 28.3 Seconds (25.1-36.5) 11/30/17 05:30 - Constitutional Appears: Non-toxic, Chronically Ill - Head Exam Head Exam: NORMAL INSPECTION - Respiratory Exam Respiratory Exam: Decreased Breath Sounds - Cardiovascular Exam Cardiovascular Exam: +S1, +S2 - GI/Abdominal Exam GI & Abdominal Exam: Soft. absent: Tenderness Assessment and Plan - Assessment and Plan (Free Text) Plan: Assessment S/P sepsis due to strep viridans and CoNS bacteremia from right gluteal and back cellulitis S/P multifocal HCAP on top of Influenza A infection S/P Sammie infection of sacral area as well peripheral vascular disease Plan continue to monitor clinically off antibiotics since he is at risk for hospital- acquired infections
--- NOTE | 2018-05-12 16:13 | CP.PCM.PN ---
<Rohit Chisholm - Last Filed: 05/12/18 16:09> Subjective - Date & Time of Evaluation Date of Evaluation: 05/12/18 Time of Evaluation: 07:45 - Subjective Subjective: Rohit Chisholm PGY-1 Progress Note for Hospitalist Service Patient seen and evaluated at bedside. No acute complaints overnight. Reports some pain on top of his R foot but denies chest pain, shortness of breath, weakness, abdominal pain, diarrhea, and urinary symptoms. Objective - Vital Signs/Intake and Output Vital Signs (last 24 hours): Temp Pulse Resp BP Pulse Ox 97 F L 90 20 125/75 94 L 05/12/18 08:18 05/12/18 08:18 05/12/18 08:18 05/12/18 08:18 05/12/18 08:18 Intake and Output: 05/12/18 05/12/18 06:59 18:59 Intake Total 1500 Balance 1500 - Medications Medications: Current Medications Amlodipine Besylate (Norvasc) 10 mg PO DAILY [facility] Last Admin: 05/11/18 10:07 Dose: Not Given Aspirin (Ecotrin) 81 mg PO DAILY [facility] Last Admin: 05/11/18 10:04 Dose: 81 mg Atorvastatin Calcium (Lipitor) 20 mg PO DIN [facility] Last Admin: 05/11/18 18:01 Dose: 20 mg Citalopram Hydrobromide (Celexa) 10 mg PO DAILY [facility] Last Admin: 05/11/18 10:03 Dose: 10 mg Collagenase (Santyl) 0 gm TOP DAILY [facility] Last Admin: 05/11/18 10:07 Dose: 1 applic Docusate Sodium (Colace) 100 mg PO BID [facility] Last Admin: 05/11/18 18:00 Dose: 100 mg Insulin Human Regular (Humulin R Low) 0 units SC [facility] PRN Reason: Protocol Last Admin: 05/11/18 22:22 Dose: Not Given Lisinopril (Zestril) 10 mg PO DAILY [facility] Last Admin: 05/11/18 10:08 Dose: Not Given Metformin HCl (Glucophage) 500 mg PO BID [facility] Last Admin: 05/11/18 18:00 Dose: 500 mg Multivitamins/Minerals (Therapeutic-M Tab) 1 tab PO 0800 [facility] Last Admin: 05/11/18 10:08 Dose: 1 tab Ondansetron HCl (Zofran Tab) 4 mg PO Q8H PRN PRN Reason: Nausea/Vomiting Last Admin: 05/11/18 15:14 Dose: 4 mg Polyethylene Glycol (Miralax) 17 gm PO BID [facility] Last Admin: 05/11/18 18:03 Dose: 17 gm Thiamine HCl (Vitamin B1 Tab) 100 mg PO DAILY [facility] Last Admin: 05/11/18 10:08 Dose: 100 mg - Labs Labs: 05/11/18 06:20 05/11/18 06:20 PT 12.5 SECONDS (9.4-12.5) 12/09/17 10:00 INR 1.09 (0.93-1.08) H 12/09/17 10:00 APTT 28.3 Seconds (25.1-36.5) 11/30/17 05:30 - Constitutional Appears: Well, Non-toxic, No Acute Distress - Head Exam Head Exam: ATRAUMATIC, NORMAL INSPECTION, NORMOCEPHALIC - Eye Exam Eye Exam: EOMI, Normal appearance Pupil Exam: PERRL - ENT Exam ENT Exam: Mucous Membranes Moist - Neck Exam Neck Exam: Full ROM - Respiratory Exam Respiratory Exam: Clear to Ausculation Bilateral, NORMAL BREATHING PATTERN. absent: Rales, Wheezes - Cardiovascular Exam Cardiovascular Exam: RRR, +S1, +S2 - GI/Abdominal Exam GI & Abdominal Exam: Soft, Normal Bowel Sounds. absent: Tenderness - Extremities Exam Extremities Exam: absent: Calf Tenderness Additional comments: R ulcer on dorsal foot bandaged with gauze around foot. - Psychiatric Exam Psychiatric exam: Flat Affect - Skin Skin Exam: Dry, Normal Color, Warm Assessment and Plan - Assessment and Plan (Free Text) Assessment: Mr. Montano is a 57 year old male unknown PMHx admitted on 11/29/17 for AMS, right hip cellulitis, multifocal pneumonia, influenza A, strep viridians bacteremia with findings of stroke on MRI - acute vs. 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 Patient was treated for bacteremia with IV abx. Guardianship establishment pending court date, which was rescheduled for early May. Altered mental status At baseline this AM; AAOx1 on evaluation. Cont. delirium precautions PT -patient refusing to participate Cont ASA 81 QD / LIPITOR 20 QD Dorsal Right Foot Ulcer Bandaged. Non purulent. Podiatry recommendations appreciated Wound care following Started medihoney No antibiotics warranted at this time per ID Coag negative Staphylococcus bacteremia - resolved Last bld clx negative 12/04/17 with completion of 6 week course of antibiotics Monitor WBC, ESR, CRP weekly Echocardiogram unable to rule out vegetations, family is unavailable for consent for [facility] Colonic mass CT Abd/Pelvis showing colonic mass and hepatic lesions GI consulted: follow recs Flex sig/colonoscopy refused by patient Family unable to be contacted for consent Diabetes mellitus type 2 Cont RISS low Cont Metformin 500mg BID Cont accuchecks Carb consistent diet HTN BP Stable, continue to monitor Cont Lisinopril 10 QD Cont Amlodipine 10 mg PO QD Affective disorder Cont Celexa 10mg PO Daily Constipation Colace 100mg BID Miralax 17gm BID Discontinued Lactulose Hx ETOH Abuse Cont Thiamine Cont Folic Acid Cont Multivitamin DVT Prophylaxis: SCDs Dispo: Patient continues to display a lack of decision making capacity: Guardianship status to be determined; Court date for guardianship postponed to early May. Patient seen, case reviewed, and plan agreed upon with Dr. Schumacher. Rohit Chisholm, PGY-1 <Deanna Schumacher - Last Filed: 05/12/18 18:01> Objective - Vital Signs/Intake and Output Vital Signs (last 24 hours): Temp Pulse Resp BP Pulse Ox 98.6 F 87 20 111/75 94 L 05/12/18 17:08 05/12/18 17:08 05/12/18 17:08 05/12/18 17:08 05/12/18 17:08 Intake and Output: 05/12/18 05/12/18 06:59 18:59 Intake Total 1500 Balance 1500 - Medications Medications: Current Medications Amlodipine Besylate (Norvasc) 10 mg PO DAILY [facility] Last Admin: 05/12/18 16:58 Dose: 10 mg Aspirin (Ecotrin) 81 mg PO DAILY [facility] Last Admin: 05/12/18 10:00 Dose: 81 mg Atorvastatin Calcium (Lipitor) 20 mg PO DIN [facility] Last Admin: 05/12/18 17:00 Dose: 20 mg Citalopram Hydrobromide (Celexa) 10 mg PO DAILY [facility] Last Admin: 05/12/18 10:00 Dose: 10 mg Collagenase (Santyl) 0 gm TOP DAILY [facility] Last Admin: 05/12/18 10:00 Dose: 1 applic Docusate Sodium (Colace) 100 mg PO BID [facility] Last Admin: 05/12/18 17:00 Dose: 100 mg Insulin Human Regular (Humulin R Low) 0 units SC ACHS [facility] PRN Reason: Protocol Last Admin: 05/12/18 17:00 Dose: 1 units Lisinopril (Zestril) 10 mg PO DAILY [facility] Last Admin: 05/12/18 17:00 Dose: 10 mg Metformin HCl (Glucophage) 500 mg PO BID [facility] Last Admin: 05/12/18 17:00 Dose: 500 mg Multivitamins/Minerals (Therapeutic-M Tab) 1 tab PO 0800 [facility] Last Admin: 05/12/18 10:00 Dose: 1 tab Ondansetron HCl (Zofran Tab) 4 mg PO Q8H PRN PRN Reason: Nausea/Vomiting Last Admin: 05/11/18 15:14 Dose: 4 mg Polyethylene Glycol (Miralax) 17 gm PO BID [facility] Last Admin: 05/12/18 17:01 Dose: 17 gm Thiamine HCl (Vitamin B1 Tab) 100 mg PO DAILY [facility] Last Admin: 05/12/18 10:00 Dose: 100 mg - Labs Labs: 05/11/18 06:20 05/11/18 06:20 PT 12.5 SECONDS (9.4-12.5) 12/09/17 10:00 INR 1.09 (0.93-1.08) H 12/09/17 10:00 APTT 28.3 Seconds (25.1-36.5) 11/30/17 05:30 Attending/Attestation - Attestation I have personally seen and examined this patient.: Yes I have fully participated in the care of the patient.: Yes I have reviewed all pertinent clinical information, including history, physical exam and plan: Yes Notes (Text): 05/12/18 18:01 Medical record note made by the resident after discussion with my direction and input after the patient was personally seen and examined by me. I have reviewed the chart and agree that the record accurately reflects by personal performance of the history, physical exam, data review, and medical decision-making, in the course for the patient. I have also personally directed the plan of care. Patient is at his base line.He is awaiting guardianship paper work for placement. Continue current medication and supportive care. Prognosis is guarded.
--- NOTE | 2018-05-13 07:02 | CP.PCM.PN ---
<Rohit Chisholm - Last Filed: 05/13/18 12:54> Subjective - Date & Time of Evaluation Date of Evaluation: 05/13/18 Time of Evaluation: 06:10 - Subjective Subjective: Rohit Chisholm PGY-1 Progress Note for Hospitalist Service Patient seen and evaluated at bedside. No acute events overnight. Patient more talkative this morning than in the past, sitting up comfortably in bed. Denies CP, SOB, abdominal pain. Admits to some R foot pain over ulcer. Currently wrapped without discharge. Objective - Vital Signs/Intake and Output Vital Signs (last 24 hours): Temp Pulse Resp BP Pulse Ox 98.6 F 87 20 111/75 94 L 05/12/18 17:08 05/12/18 17:08 05/12/18 17:08 05/12/18 17:08 05/12/18 17:08 Intake and Output: 05/13/18 05/13/18 06:59 18:59 Intake Total 1790 Balance 1790 - Medications Medications: Current Medications Amlodipine Besylate (Norvasc) 10 mg PO DAILY [facility] Last Admin: 05/12/18 16:58 Dose: 10 mg Aspirin (Ecotrin) 81 mg PO DAILY [facility] Last Admin: 05/12/18 10:00 Dose: 81 mg Atorvastatin Calcium (Lipitor) 20 mg PO DIN [facility] Last Admin: 05/12/18 17:00 Dose: 20 mg Citalopram Hydrobromide (Celexa) 10 mg PO DAILY [facility] Last Admin: 05/12/18 10:00 Dose: 10 mg Collagenase (Santyl) 0 gm TOP DAILY [facility] Last Admin: 05/12/18 10:00 Dose: 1 applic Docusate Sodium (Colace) 100 mg PO BID [facility] Last Admin: 05/12/18 17:00 Dose: 100 mg Insulin Human Regular (Humulin R Low) 0 units SC ACHS [facility] PRN Reason: Protocol Last Admin: 05/12/18 21:55 Dose: Not Given Lisinopril (Zestril) 10 mg PO DAILY [facility] Last Admin: 05/12/18 17:00 Dose: 10 mg Metformin HCl (Glucophage) 500 mg PO BID [facility] Last Admin: 05/12/18 17:00 Dose: 500 mg Multivitamins/Minerals (Therapeutic-M Tab) 1 tab PO 0800 [facility] Last Admin: 05/12/18 10:00 Dose: 1 tab Ondansetron HCl (Zofran Tab) 4 mg PO Q8H PRN PRN Reason: Nausea/Vomiting Last Admin: 05/11/18 15:14 Dose: 4 mg Polyethylene Glycol (Miralax) 17 gm PO BID [facility] Last Admin: 05/12/18 17:01 Dose: 17 gm Thiamine HCl (Vitamin B1 Tab) 100 mg PO DAILY [facility] Last Admin: 05/12/18 10:00 Dose: 100 mg - Labs Labs: 05/11/18 06:20 05/11/18 06:20 PT 12.5 SECONDS (9.4-12.5) 12/09/17 10:00 INR 1.09 (0.93-1.08) H 12/09/17 10:00 APTT 28.3 Seconds (25.1-36.5) 11/30/17 05:30 - Constitutional Appears: Well, Non-toxic, No Acute Distress - Head Exam Head Exam: ATRAUMATIC, NORMAL INSPECTION, NORMOCEPHALIC - Eye Exam Eye Exam: EOMI, Normal appearance Pupil Exam: PERRL - ENT Exam ENT Exam: Mucous Membranes Moist - Neck Exam Neck Exam: Full ROM - Respiratory Exam Respiratory Exam: Clear to Ausculation Bilateral, NORMAL BREATHING PATTERN. absent: Rales, Wheezes - Cardiovascular Exam Cardiovascular Exam: RRR, +S1, +S2 - GI/Abdominal Exam GI & Abdominal Exam: Soft, Normal Bowel Sounds. absent: Tenderness - Extremities Exam Extremities Exam: absent: Calf Tenderness Additional comments: R ulcer on dorsal foot bandaged with gauze around foot. Assessment and Plan - Assessment and Plan (Free Text) Assessment: Assessment: Mr. Montano is a 57 year old male unknown PMHx admitted on 11/29/17 for AMS, right hip cellulitis, multifocal pneumonia, influenza A, strep viridians bacteremia with findings of stroke on MRI - acute vs. 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 Patient was treated for bacteremia with IV abx. Guardianship establishment pending court date, which was rescheduled for early May. Altered mental status At baseline this AM; AAOx1 on evaluation. Cont. delirium precautions PT -patient refusing to participate Cont ASA 81 QD / LIPITOR 20 QD Dorsal Right Foot Ulcer Bandaged. Non purulent. Podiatry recommendations appreciated Wound care following On medihoney No antibiotics warranted at this time per ID Coag negative Staphylococcus bacteremia - resolved Last bld clx negative 12/04/17 with completion of 6 week course of antibiotics Monitor WBC, ESR, CRP weekly Echocardiogram unable to rule out vegetations, family is unavailable for consent for [facility] Colonic mass CT Abd/Pelvis showing colonic mass and hepatic lesions GI consulted: follow recs Flex sig/colonoscopy refused by patient Family unable to be contacted for consent Diabetes mellitus type 2 Cont RISS low Cont Metformin 500mg BID Cont accuchecks Carb consistent diet HTN BP Stable, continue to monitor Cont Lisinopril 10 QD Cont Amlodipine 10 mg PO QD Affective disorder Cont Celexa 10mg PO Daily Constipation Colace 100mg BID Miralax 17gm BID Discontinued Lactulose Hx ETOH Abuse Cont Thiamine Cont Folic Acid Cont Multivitamin DVT Prophylaxis: SCDs Dispo: Patient continues to display a lack of decision making capacity: Guardianship status to be determined; Court date for guardianship postponed to early May. Patient seen, case reviewed, and plan agreed upon with Dr. Schumacher. Rohit Chisholm, PGY-1 <Deanna Schumacher - Last Filed: 05/13/18 16:40> Objective - Vital Signs/Intake and Output Vital Signs (last 24 hours): Temp Pulse Resp BP Pulse Ox 98.0 F 92 H 20 111/73 96 05/13/18 06:00 05/13/18 10:21 05/13/18 06:00 05/13/18 10:21 05/13/18 06:00 Intake and Output: 05/13/18 05/13/18 06:59 18:59 Intake Total 1790 Balance 1790 - Medications Medications: Current Medications Amlodipine Besylate (Norvasc) 10 mg PO DAILY [facility] Last Admin: 05/13/18 10:20 Dose: 10 mg Aspirin (Ecotrin) 81 mg PO DAILY [facility] Last Admin: 05/13/18 10:18 Dose: 81 mg Atorvastatin Calcium (Lipitor) 20 mg PO DIN [facility] Last Admin: 05/12/18 17:00 Dose: 20 mg Citalopram Hydrobromide (Celexa) 10 mg PO DAILY [facility] Last Admin: 05/13/18 10:18 Dose: 10 mg Collagenase (Santyl) 0 gm TOP DAILY [facility] Last Admin: 05/13/18 10:20 Dose: Not Given Docusate Sodium (Colace) 100 mg PO BID [facility] Last Admin: 05/13/18 10:18 Dose: 100 mg Insulin Human Regular (Humulin R Low) 0 units SC ACHS [facility] PRN Reason: Protocol Last Admin: 05/13/18 11:56 Dose: Not Given Lisinopril (Zestril) 10 mg PO DAILY [facility] Last Admin: 05/13/18 10:21 Dose: 10 mg Metformin HCl (Glucophage) 500 mg PO BID [facility] Last Admin: 05/13/18 10:19 Dose: 500 mg Multivitamins/Minerals (Therapeutic-M Tab) 1 tab PO 0800 [facility] Last Admin: 05/13/18 10:21 Dose: 1 tab Ondansetron HCl (Zofran Tab) 4 mg PO Q8H PRN PRN Reason: Nausea/Vomiting Last Admin: 05/11/18 15:14 Dose: 4 mg Polyethylene Glycol (Miralax) 17 gm PO BID [facility] Last Admin: 05/13/18 10:19 Dose: 17 gm Thiamine HCl (Vitamin B1 Tab) 100 mg PO DAILY [facility] Last Admin: 05/13/18 10:21 Dose: 100 mg - Labs Labs: 05/11/18 06:20 05/11/18 06:20 PT 12.5 SECONDS (9.4-12.5) 12/09/17 10:00 INR 1.09 (0.93-1.08) H 12/09/17 10:00 APTT 28.3 Seconds (25.1-36.5) 11/30/17 05:30 Attending/Attestation - Attestation I have personally seen and examined this patient.: Yes I have fully participated in the care of the patient.: Yes I have reviewed all pertinent clinical information, including history, physical exam and plan: Yes Notes (Text): 05/13/18 16:39 Medical record note made by the resident after discussion with my direction and input after the patient was personally seen and examined by me. I have reviewed the chart and agree that the record accurately reflects by personal performance of the history, physical exam, data review, and medical decision-making, in the course for the patient. I have also personally directed the plan of care. 05/13/18 16:40
--- NOTE | 2018-05-13 10:08 | CP.PCM.PN ---
<Kei Johnson - Last Filed: 05/13/18 10:10> Subjective - Date & Time of Evaluation Date of Evaluation: 05/13/18 Time of Evaluation: 10:05 - Subjective Subjective: Podiatry Progress Note- Dr. Davis 57 y.o male seen and evaluated at bedside for right anterior ulceration and left ankle abrasion. Patient is seen resting comfortably in bed, in NAD, denies acute overnight nights. Denies pain to the lower extremities bilaterally. Dressing to the lower extremity is clean, dry, and intact without strikethrough. Denies nausea, fever, shortness of breath, chest pains or chills. No other pedal complaints at this time. Objective - Vital Signs/Intake and Output Vital Signs (last 24 hours): Temp Pulse Resp BP Pulse Ox 98.0 F 92 H 20 111/73 96 05/13/18 06:00 05/13/18 06:00 05/13/18 06:00 05/13/18 06:00 05/13/18 06:00 Intake and Output: 05/13/18 05/13/18 06:59 18:59 Intake Total 1790 Balance 1790 - Medications Medications: Current Medications Amlodipine Besylate (Norvasc) 10 mg PO DAILY [facility] Last Admin: 05/12/18 16:58 Dose: 10 mg Aspirin (Ecotrin) 81 mg PO DAILY [facility] Last Admin: 05/12/18 10:00 Dose: 81 mg Atorvastatin Calcium (Lipitor) 20 mg PO DIN [facility] Last Admin: 05/12/18 17:00 Dose: 20 mg Citalopram Hydrobromide (Celexa) 10 mg PO DAILY [facility] Last Admin: 05/12/18 10:00 Dose: 10 mg Collagenase (Santyl) 0 gm TOP DAILY [facility] Last Admin: 05/12/18 10:00 Dose: 1 applic Docusate Sodium (Colace) 100 mg PO BID [facility] Last Admin: 05/12/18 17:00 Dose: 100 mg Insulin Human Regular (Humulin R Low) 0 units SC ACHS [facility] PRN Reason: Protocol Last Admin: 05/12/18 21:55 Dose: Not Given Lisinopril (Zestril) 10 mg PO DAILY [facility] Last Admin: 05/12/18 17:00 Dose: 10 mg Metformin HCl (Glucophage) 500 mg PO BID [facility] Last Admin: 05/12/18 17:00 Dose: 500 mg Multivitamins/Minerals (Therapeutic-M Tab) 1 tab PO 0800 [facility] Last Admin: 05/12/18 10:00 Dose: 1 tab Ondansetron HCl (Zofran Tab) 4 mg PO Q8H PRN PRN Reason: Nausea/Vomiting Last Admin: 05/11/18 15:14 Dose: 4 mg Polyethylene Glycol (Miralax) 17 gm PO BID [facility] Last Admin: 05/12/18 17:01 Dose: 17 gm Thiamine HCl (Vitamin B1 Tab) 100 mg PO DAILY [facility] Last Admin: 05/12/18 10:00 Dose: 100 mg - Labs Labs: 05/11/18 06:20 05/11/18 06:20 PT 12.5 SECONDS (9.4-12.5) 12/09/17 10:00 INR 1.09 (0.93-1.08) H 12/09/17 10:00 APTT 28.3 Seconds (25.1-36.5) 11/30/17 05:30 - Constitutional Appears: Well, Non-toxic, No Acute Distress - Extremities Exam Extremities Exam: absent: Calf Tenderness Additional comments: B/L Lower extremity exam: VASC: DP and PT faintly palpable, CFT delayed > 3 seconds x 10 digits, temperature gradient cool to cool, no edema noted to the lower extremity NEURO: difficult to assess DERM: Right: ulceration noted to the anterior aspect of right ankle at the level of the ankle joint measuring approximately 2 x 2 cm with necrotic scab sloughing off with wound base being mainly fibrotic underlying, no streaking, no drainage , no tunneling, no abscess, no odor or drainage, no abscess or fluctanance noted , no clinical signs of infection. Thin erythema rim likely secondary to irritation. Left: Very tiny superficial abrasion noted to the anterior aspect of left ankle with scabbing over. No streaking, no drainage, no tunneling, no abscess, no lifting of the scab noted, no odor or drainage, no abscess or fluctanance noted , no clinical signs of infection ORTHO: no pain with palpation to the entire lower extremity, no calf pain or tenderness appreciated, unable to assess MMT secondary to patient's cooperation - Neurological Exam Neurological Exam: Alert, Awake - Psychiatric Exam Psychiatric exam: Normal Affect, Normal Mood Assessment and Plan - Assessment and Plan (Free Text) Assessment: 57 y.o male with 1) right anterior ankle ulceration 2) left ankle superficial abrasion -stable, no infection Plan: Patient examined and evaluated Plan discussed with Dr. Oakley Chart, labs and vitals reviewed; Afebrile, absent leukocytosis Cleansed ulcerations. Applied Santyl and optifoam for the right anterior ankle ulceration and covered with kerlix Left ankle superficial abrasion left open to air dry Patient stable per podiatry standpoint Will continue to follow while patient in house Will continue to provide local wound care Upon discharge, patient to follow with Dr. Oakley in wound care <Raciel Dvais - Last Filed: 05/13/18 19:21> Objective - Vital Signs/Intake and Output Vital Signs (last 24 hours): Temp Pulse Resp BP Pulse Ox 97.6 F 93 H 19 107/71 97 05/13/18 17:24 05/13/18 17:24 05/13/18 17:24 05/13/18 17:24 05/13/18 17:24 - Medications Medications: Current Medications Amlodipine Besylate (Norvasc) 10 mg PO DAILY [facility] Last Admin: 05/13/18 10:20 Dose: 10 mg Aspirin (Ecotrin) 81 mg PO DAILY [facility] Last Admin: 05/13/18 10:18 Dose: 81 mg Atorvastatin Calcium (Lipitor) 20 mg PO DIN [facility] Last Admin: 05/13/18 17:28 Dose: 20 mg Citalopram Hydrobromide (Celexa) 10 mg PO DAILY [facility] Last Admin: 05/13/18 10:18 Dose: 10 mg Collagenase (Santyl) 0 gm TOP DAILY [facility] Last Admin: 05/13/18 10:20 Dose: Not Given Docusate Sodium (Colace) 100 mg PO BID [facility] Last Admin: 05/13/18 17:28 Dose: 100 mg Insulin Human Regular (Humulin R Low) 0 units SC [facility] PRN Reason: Protocol Last Admin: 05/13/18 17:28 Dose: Not Given Lisinopril (Zestril) 10 mg PO DAILY [facility] Last Admin: 05/13/18 10:21 Dose: 10 mg Metformin HCl (Glucophage) 500 mg PO BID [facility] Last Admin: 05/13/18 17:28 Dose: 500 mg Multivitamins/Minerals (Therapeutic-M Tab) 1 tab PO 0800 [facility] Last Admin: 05/13/18 10:21 Dose: 1 tab Ondansetron HCl (Zofran Tab) 4 mg PO Q8H PRN PRN Reason: Nausea/Vomiting Last Admin: 05/11/18 15:14 Dose: 4 mg Polyethylene Glycol (Miralax) 17 gm PO BID [facility] Last Admin: 05/13/18 17:29 Dose: 17 gm Thiamine HCl (Vitamin B1 Tab) 100 mg PO DAILY [facility] Last Admin: 05/13/18 10:21 Dose: 100 mg - Labs Labs: 05/11/18 06:20 05/11/18 06:20 PT 12.5 SECONDS (9.4-12.5) 12/09/17 10:00 INR 1.09 (0.93-1.08) H 12/09/17 10:00 APTT 28.3 Seconds (25.1-36.5) 11/30/17 05:30 Attending/Attestation - Attestation I have personally seen and examined this patient.: Yes I have fully participated in the care of the patient.: Yes I have reviewed all pertinent clinical information, including history, physical exam and plan: Yes
[2018-05-13] MEDS: Insulin Reg-LOW-Coverage SC SCH ×3 (10:19→17:28)
[2018-05-13] MEDS: POLYETHYLENE GLYCOL 3350 17 GM/Dose PACKET PO SCH ×2 (10:19→17:29)
[2018-05-13] MEDS: Collagenase 250 Units/gm Ointment(30 gm) TOP SCH (10:20)
[2018-05-13] MEDS: Multivitamin With Minerals Tab PO SCH (10:21)
--- NOTE | 2018-05-13 14:56 | CP.PCM.PN ---
Subjective - Date & Time of Evaluation Date of Evaluation: 05/13/18 Time of Evaluation: 11:40 - Subjective Subjective: Comfortable in bed, no fevers, not in distress. Objective - Vital Signs/Intake and Output Vital Signs (last 24 hours): Temp Pulse Resp BP Pulse Ox 98.0 F 92 H 20 111/73 96 05/13/18 06:00 05/13/18 10:21 05/13/18 06:00 05/13/18 10:21 05/13/18 06:00 Intake and Output: 05/13/18 05/13/18 06:59 18:59 Intake Total 1790 Balance 1790 - Medications Medications: Current Medications Amlodipine Besylate (Norvasc) 10 mg PO DAILY [facility] Last Admin: 05/13/18 10:20 Dose: 10 mg Aspirin (Ecotrin) 81 mg PO DAILY [facility] Last Admin: 05/13/18 10:18 Dose: 81 mg Atorvastatin Calcium (Lipitor) 20 mg PO DIN [facility] Last Admin: 05/12/18 17:00 Dose: 20 mg Citalopram Hydrobromide (Celexa) 10 mg PO DAILY [facility] Last Admin: 05/13/18 10:18 Dose: 10 mg Collagenase (Santyl) 0 gm TOP DAILY [facility] Last Admin: 05/13/18 10:20 Dose: Not Given Docusate Sodium (Colace) 100 mg PO BID [facility] Last Admin: 05/13/18 10:18 Dose: 100 mg Insulin Human Regular (Humulin R Low) 0 units SC ACHS [facility] PRN Reason: Protocol Last Admin: 05/13/18 10:19 Dose: Not Given Lisinopril (Zestril) 10 mg PO DAILY [facility] Last Admin: 05/13/18 10:21 Dose: 10 mg Metformin HCl (Glucophage) 500 mg PO BID [facility] Last Admin: 05/13/18 10:19 Dose: 500 mg Multivitamins/Minerals (Therapeutic-M Tab) 1 tab PO 0800 [facility] Last Admin: 05/13/18 10:21 Dose: 1 tab Ondansetron HCl (Zofran Tab) 4 mg PO Q8H PRN PRN Reason: Nausea/Vomiting Last Admin: 05/11/18 15:14 Dose: 4 mg Polyethylene Glycol (Miralax) 17 gm PO BID [facility] Last Admin: 05/13/18 10:19 Dose: 17 gm Thiamine HCl (Vitamin B1 Tab) 100 mg PO DAILY [facility] Last Admin: 05/13/18 10:21 Dose: 100 mg - Labs Labs: 05/11/18 06:20 05/11/18 06:20 PT 12.5 SECONDS (9.4-12.5) 12/09/17 10:00 INR 1.09 (0.93-1.08) H 12/09/17 10:00 APTT 28.3 Seconds (25.1-36.5) 11/30/17 05:30 - Constitutional Appears: Non-toxic, Chronically Ill - Head Exam Head Exam: NORMAL INSPECTION - Respiratory Exam Respiratory Exam: Decreased Breath Sounds - Cardiovascular Exam Cardiovascular Exam: +S1, +S2 - GI/Abdominal Exam GI & Abdominal Exam: Soft. absent: Tenderness Assessment and Plan - Assessment and Plan (Free Text) Plan: Assessment S/P sepsis due to strep viridans and CoNS bacteremia from right gluteal and back cellulitis S/P multifocal HCAP on top of Influenza A infection S/P Sammie infection of sacral area as well peripheral vascular disease Plan continue to monitor clinically off antibiotics since he is at risk for healthcare-associated infections
[2018-05-14] MEDS: Insulin Reg-LOW-Coverage SC SCH ×4 (08:00→22:27)
--- NOTE | 2018-05-14 10:17 | PN ---
DATE: 05/14/2018 SUBJECTIVE: The patient is in bed in no acute distress. PHYSICAL EXAMINATION VITAL SIGNS: Temperature is 97, blood pressure is 116/70, respiratory rate of 20, heart rate of 91. HEENT: Unremarkable. NECK: Supple. LUNGS: Have decreased breath sounds. HEART: Normal S1 and S2. ABDOMEN: Soft. LABORATORY DATA: Reveals a white count of 10,000, hemoglobin of 10. Creatinine is 0.6. ASSESSMENT AND PLAN: A 57-year-old male seen earlier today in [facility], bed 1, who is admitted with sepsis with strep viridans and coag-negative bacteremia, right gluteal and back cellulitis status post multifocal healthcare-associated pneumonia on top of influenza and currently off of antibiotics, afebrile. The patient is at risk for developing nosocomial infections. Daniel Torres MD
[2018-05-14] MEDS: POLYETHYLENE GLYCOL 3350 17 GM/Dose PACKET PO SCH ×2 (11:18→17:34)
[2018-05-14] MEDS: Collagenase 250 Units/gm Ointment(30 gm) TOP SCH (11:25)
[2018-05-14] MEDS: Multivitamin With Minerals Tab PO SCH (11:32)
--- NOTE | 2018-05-14 12:20 | CP.PCM.PN ---
<Jones Weller - Last Filed: 05/14/18 12:22> Subjective - Date & Time of Evaluation Date of Evaluation: 05/14/18 Time of Evaluation: 08:45 - Subjective Subjective: Jones Weller DO PGY-1, Surface Hydrologist Medicine Progress Note Pt seen and examined at bedside. Denies any acute complaints, states he slept ok overnight. Tolerating PO diet. No acute events reported overnight. Objective - Vital Signs/Intake and Output Vital Signs (last 24 hours): Temp Pulse Resp BP Pulse Ox 97.5 F L 91 H 20 116/77 94 L 05/14/18 08:07 05/14/18 08:07 05/14/18 08:07 05/14/18 08:07 05/14/18 08:07 - Medications Medications: Current Medications Amlodipine Besylate (Norvasc) 10 mg PO DAILY [facility] Last Admin: 05/14/18 11:22 Dose: Not Given Aspirin (Ecotrin) 81 mg PO DAILY [facility] Last Admin: 05/14/18 11:18 Dose: Not Given Atorvastatin Calcium (Lipitor) 20 mg PO DIN [facility] Last Admin: 05/13/18 17:28 Dose: 20 mg Citalopram Hydrobromide (Celexa) 10 mg PO DAILY [facility] Last Admin: 05/14/18 11:17 Dose: Not Given Collagenase (Santyl) 0 gm TOP DAILY [facility] Last Admin: 05/14/18 11:25 Dose: 1 applic Docusate Sodium (Colace) 100 mg PO BID [facility] Last Admin: 05/14/18 11:18 Dose: Not Given Insulin Human Regular (Humulin R Low) 0 units SC ACHS [facility] PRN Reason: Protocol Last Admin: 05/14/18 08:00 Dose: Not Given Lisinopril (Zestril) 10 mg PO DAILY [facility] Last Admin: 05/14/18 11:32 Dose: Not Given Metformin HCl (Glucophage) 500 mg PO BID [facility] Last Admin: 05/14/18 11:18 Dose: Not Given Multivitamins/Minerals (Therapeutic-M Tab) 1 tab PO 0800 [facility] Last Admin: 05/14/18 11:32 Dose: 1 tab Ondansetron HCl (Zofran Tab) 4 mg PO Q8H PRN PRN Reason: Nausea/Vomiting Last Admin: 05/11/18 15:14 Dose: 4 mg Polyethylene Glycol (Miralax) 17 gm PO BID [facility] Last Admin: 05/14/18 11:18 Dose: Not Given Thiamine HCl (Vitamin B1 Tab) 100 mg PO DAILY [facility] Last Admin: 05/14/18 11:32 Dose: Not Given - Labs Labs: 05/11/18 06:20 05/11/18 06:20 PT 12.5 SECONDS (9.4-12.5) 12/09/17 10:00 INR 1.09 (0.93-1.08) H 12/09/17 10:00 APTT 28.3 Seconds (25.1-36.5) 11/30/17 05:30 - Constitutional Appears: Non-toxic, No Acute Distress, Confused - Head Exam Head Exam: ATRAUMATIC, NORMAL INSPECTION, NORMOCEPHALIC - Eye Exam Eye Exam: EOMI, Normal appearance, PERRL - ENT Exam ENT Exam: Mucous Membranes Moist, Normal Oropharynx - Neck Exam Neck Exam: Full ROM, Normal Inspection - Respiratory Exam Respiratory Exam: Clear to Ausculation Bilateral, NORMAL BREATHING PATTERN - Cardiovascular Exam Cardiovascular Exam: REGULAR RHYTHM, +S1, +S2 - GI/Abdominal Exam GI & Abdominal Exam: Soft, Normal Bowel Sounds - Extremities Exam Extremities Exam: Normal Capillary Refill, Normal Inspection Additional comments: R ulcer on dorsal foot bandaged with gauze - Back Exam Back Exam: NORMAL INSPECTION - Neurological Exam Neurological Exam: Alert, Awake Additional comments: Oriented x2 - Psychiatric Exam Psychiatric exam: Flat Affect - Skin Skin Exam: Dry, Intact, Warm Assessment and Plan - Assessment and Plan (Free Text) Assessment: 57 year old male unknown PMHx admitted on 11/29/17 for AMS, right hip cellulitis , multifocal pneumonia, influenza A, strep viridians bacteremia with findings of stroke on MRI - acute vs. 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 Patient was treated for bacteremia with IV abx. Guardianship establishment pending court date, which was rescheduled for early May. Plan: Altered mental status At baseline this AM; AAOx1 on evaluation. Cont. delirium precautions PT -patient refusing to participate Cont ASA 81 QD / LIPITOR 20 QD Dorsal Right Foot Ulcer Bandaged. Non purulent. Podiatry recommendations appreciated Wound care following [facility] No antibiotics warranted at this time per ID Coag negative Staphylococcus bacteremia - resolved Last bld clx negative 12/04/17 with completion of 6 week course of antibiotics Monitor WBC, ESR, CRP weekly Echocardiogram unable to rule out vegetations, family is unavailable for consent for TAHIR Colonic mass CT Abd/Pelvis showing colonic mass and hepatic lesions GI consulted: follow recs Flex sig/colonoscopy refused by patient Family unable to be contacted for consent Diabetes mellitus type 2 Cont RISS low Cont Metformin 500mg BID Cont accuchecks Carb consistent diet HTN BP Stable, continue to monitor Cont Lisinopril 10 QD Cont Amlodipine 10 mg PO QD Affective disorder Cont Celexa 10mg PO Daily Constipation Colace 100mg BID Miralax 17gm BID Discontinued Lactulose Hx ETOH Abuse Cont Thiamine Cont Folic Acid Cont Multivitamin DVT Prophylaxis: SCDs Dispo: Patient continues to display a lack of decision making capacity: Guardianship status to be determined; Court date for guardianship postponed to early May. Pt seen, examined with, and plan discussed with Dr. Schumacher, attending. Jones Weller DO PGY-1, Surface Hydrologist Pager #[phone] <Deanna Schumacher - Last Filed: 05/14/18 14:10> Objective - Vital Signs/Intake and Output Vital Signs (last 24 hours): Temp Pulse Resp BP Pulse Ox 97.5 F L 91 H 20 116/77 94 L 05/14/18 08:07 05/14/18 08:07 05/14/18 08:07 05/14/18 08:07 05/14/18 08:07 - Medications Medications: Current Medications Amlodipine Besylate (Norvasc) 10 mg PO DAILY [facility] Last Admin: 05/14/18 11:22 Dose: Not Given Aspirin (Ecotrin) 81 mg PO DAILY [facility] Last Admin: 05/14/18 11:18 Dose: Not Given Atorvastatin Calcium (Lipitor) 20 mg PO DIN [facility] Last Admin: 05/13/18 17:28 Dose: 20 mg Citalopram Hydrobromide (Celexa) 10 mg PO DAILY [facility] Last Admin: 05/14/18 11:17 Dose: Not Given Collagenase (Santyl) 0 gm TOP DAILY [facility] Last Admin: 05/14/18 11:25 Dose: 1 applic Docusate Sodium (Colace) 100 mg PO BID [facility] Last Admin: 05/14/18 11:18 Dose: Not Given Insulin Human Regular (Humulin R Low) 0 units SC ACHS [facility] PRN Reason: Protocol Last Admin: 05/14/18 08:00 Dose: Not Given Lisinopril (Zestril) 10 mg PO DAILY [facility] Last Admin: 05/14/18 11:32 Dose: Not Given Metformin HCl (Glucophage) 500 mg PO BID [facility] Last Admin: 05/14/18 11:18 Dose: Not Given Multivitamins/Minerals (Therapeutic-M Tab) 1 tab PO 0800 [facility] Last Admin: 05/14/18 11:32 Dose: 1 tab Ondansetron HCl (Zofran Tab) 4 mg PO Q8H PRN PRN Reason: Nausea/Vomiting Last Admin: 05/11/18 15:14 Dose: 4 mg Polyethylene Glycol (Miralax) 17 gm PO BID [facility] Last Admin: 05/14/18 11:18 Dose: Not Given Thiamine HCl (Vitamin B1 Tab) 100 mg PO DAILY [facility] Last Admin: 05/14/18 11:32 Dose: Not Given - Labs Labs: 05/11/18 06:20 05/11/18 06:20 PT 12.5 SECONDS (9.4-12.5) 12/09/17 10:00 INR 1.09 (0.93-1.08) H 12/09/17 10:00 APTT 28.3 Seconds (25.1-36.5) 11/30/17 05:30 Attending/Attestation - Attestation I have personally seen and examined this patient.: Yes I have fully participated in the care of the patient.: Yes I have reviewed all pertinent clinical information, including history, physical exam and plan: Yes Notes (Text): 05/14/18 14:10 Medical record note made by the resident after discussion with my direction and input after the patient was personally seen and examined by me. I have reviewed the chart and agree that the record accurately reflects by personal performance of the history, physical exam, data review, and medical decision-making, in the course for the patient. I have also personally directed the plan of care. Patient is at his base line.He is awaiting guardianship paper work for placement. Continue current medication and supportive care. Prognosis is guarded.
--- NOTE | 2018-05-14 15:34 | PN ---
DATE: 05/14/2018 SUBJECTIVE: A 57-year-old intellectually challenged male seen at bedside for continued evaluation and management of a full-thickness ulceration on the right anterior ankle as well as a left ankle abrasion. The patient denies any fever, chills, nausea, or vomiting and does not have any pain. The patient's vital signs reveal a temperature of 97.5, pulse rate of 91, blood pressure of 116/77, respiratory rate of 20. Laboratory findings reveal a white count of 10.1, hemoglobin of 10.6, hematocrit of 32.2, platelet count of 15. His ESR is elevated at 66. OBJECTIVE: Weakly palpable pedal pulses noted bilaterally. Capillary filling time is delayed x10. Temperature gradient is cool to cool. There is noted to be no lower extremity edema. The patient is unable to detect 5.07 g monofilament wire testing when asked. There is noted to be a full-thickness ulceration at the anterior aspect of the right ankle at the joint level that still measures approximately 2 cm x 2 cm. There is a loosely necrotic tissue. There is partially sloughed off at the wound base and the surrounding area is granular. There is noted to be minimal serous drainage. There is no purulence to suggest underlying abscess formation. There is no probing to tendon or bone. There is no tunneling. No signs of acute bacterial infection noted. Left ankle presents with a resolving superficial abrasion at the lateral malleoli. There is no drainage, no opening, no signs of acute bacterial infection. There is no pain upon palpation of the gastroc-soleus complex to suggest DVT. ASSESSMENT: A 57-year-old diabetic male with right anterior ankle ulceration and superficial abrasion on the left ankle. No signs of bacterial infection noted. PLAN: The patient was seen and evaluated. His wounds were cleansed with normal sterile saline and application of Santyl and Optifoam was applied to the right anterior ankle ulceration and covered with Kerlix and the left ankle superficial abrasion was left open to dry. The patient is stable and will be seen daily for daily dressing changes. Upon discharge, he will need to follow up at the wound center for his anterior ankle ulceration. Raciel Davis DPM [facility] # [id number]
[2018-05-15] MEDS: Insulin Reg-LOW-Coverage SC SCH ×4 (08:21→21:58)
--- NOTE | 2018-05-15 09:35 | PN ---
DATE: 05/15/2018 SUBJECTIVE: The patient is in bed, in no acute distress, nontoxic, seen earlier this morning. OBJECTIVE: VITAL SIGNS: On exam, temperature is 98, blood pressure is 130/80, respiratory rate of 18. HEENT: Examination is unremarkable. NECK: Supple. LUNGS: Have decreased breath sounds. HEART: Normal S1, S2. ABDOMEN: Soft, nontender. DATA: Laboratory examination reveals a white count of 10,000, hemoglobin of 10, platelets of 423. The chemistries reveals a BUN as noted and creatinine of 0.6. ASSESSMENT AND PLAN: This is a 57-year-old male with sepsis with strep viridans and coag-negative bacteremia, right gluteal and back cellulitis, status post multifocal healthcare-associated pneumonia on top of influenza A. Currently off of antibiotics, afebrile. The patient is at risk for developing nosocomial infection. Daniel Torres MD
[2018-05-15] MEDS: Multivitamin With Minerals Tab PO SCH (10:57)
[2018-05-15] MEDS: Collagenase 250 Units/gm Ointment(30 gm) TOP SCH (10:58)
[2018-05-15] MEDS: POLYETHYLENE GLYCOL 3350 17 GM/Dose PACKET PO SCH ×2 (10:59→17:05)
--- NOTE | 2018-05-15 11:19 | CP.PCM.PN ---
<Rohit Chisholm - Last Filed: 05/15/18 11:15> Subjective - Date & Time of Evaluation Date of Evaluation: 05/15/18 Time of Evaluation: 07:15 - Subjective Subjective: Rohit Chisholm PGY-1 Progress Note for Hospitalist Service Patient seen and examined at bedside. No acute events overnight. Denies CP, SOB , abdominal pain, leg pain or foot pain. Last BM on Wednesday. Objective - Vital Signs/Intake and Output Vital Signs (last 24 hours): Temp Pulse Resp BP Pulse Ox 97.5 F L 86 20 136/80 96 05/15/18 07:57 05/15/18 07:57 05/15/18 07:57 05/15/18 10:57 05/15/18 07:57 Intake and Output: 05/15/18 05/15/18 06:59 18:59 Intake Total 0 Balance 0 - Medications Medications: Current Medications Amlodipine Besylate (Norvasc) 10 mg PO DAILY [facility] Last Admin: 05/15/18 10:57 Dose: 10 mg Aspirin (Ecotrin) 81 mg PO DAILY [facility] Last Admin: 05/15/18 10:58 Dose: 81 mg Atorvastatin Calcium (Lipitor) 20 mg PO DIN [facility] Last Admin: 05/14/18 17:35 Dose: 20 mg Citalopram Hydrobromide (Celexa) 10 mg PO DAILY [facility] Last Admin: 05/15/18 10:57 Dose: 10 mg Collagenase (Santyl) 0 gm TOP DAILY [facility] Last Admin: 05/15/18 10:58 Dose: 1 applic Docusate Sodium (Colace) 100 mg PO BID [facility] Last Admin: 05/15/18 10:59 Dose: 100 mg Insulin Human Regular (Humulin R Low) 0 units SC [facility] PRN Reason: Protocol Last Admin: 05/15/18 08:21 Dose: Not Given Lisinopril (Zestril) 10 mg PO DAILY [facility] Last Admin: 05/15/18 10:58 Dose: 10 mg Metformin HCl (Glucophage) 500 mg PO BID [facility] Last Admin: 05/15/18 10:58 Dose: 500 mg Multivitamins/Minerals (Therapeutic-M Tab) 1 tab PO 0800 [facility] Last Admin: 05/15/18 10:57 Dose: 1 tab Ondansetron HCl (Zofran Tab) 4 mg PO Q8H PRN PRN Reason: Nausea/Vomiting Last Admin: 05/11/18 15:14 Dose: 4 mg Polyethylene Glycol (Miralax) 17 gm PO BID [facility] Last Admin: 05/15/18 10:59 Dose: 17 gm Thiamine HCl (Vitamin B1 Tab) 100 mg PO DAILY [facility] Last Admin: 05/15/18 10:58 Dose: 100 mg - Labs Labs: 05/11/18 06:20 05/11/18 06:20 PT 12.5 SECONDS (9.4-12.5) 12/09/17 10:00 INR 1.09 (0.93-1.08) H 12/09/17 10:00 APTT 28.3 Seconds (25.1-36.5) 11/30/17 05:30 - Constitutional Appears: Non-toxic, No Acute Distress, Confused - Head Exam Head Exam: ATRAUMATIC, NORMAL INSPECTION, NORMOCEPHALIC - Eye Exam Eye Exam: EOMI, Normal appearance, PERRL - ENT Exam ENT Exam: Mucous Membranes Moist, Normal Oropharynx - Neck Exam Neck Exam: Full ROM, Normal Inspection - Respiratory Exam Respiratory Exam: Clear to Ausculation Bilateral, NORMAL BREATHING PATTERN, no rales, wheezes or rhonchi - Cardiovascular Exam Cardiovascular Exam: REGULAR RHYTHM, +S1, +S2 - GI/Abdominal Exam GI & Abdominal Exam: Soft, Normal Bowel Sounds - Extremities Exam Extremities Exam: Normal Capillary Refill, Normal Inspection Additional comments: R ulcer on dorsal foot bandaged with gauze. L foot uncovered - Back Exam Back Exam: NORMAL INSPECTION - Neurological Exam Neurological Exam: Alert, Awake Additional comments: Oriented x2 - Psychiatric Exam Psychiatric exam: Flat Affect - Skin Skin Exam: Dry, Intact, Warm Assessment and Plan - Assessment and Plan (Free Text) Assessment: Assessment: 57 year old male unknown PMHx admitted on 11/29/17 for AMS, right hip cellulitis , multifocal pneumonia, influenza A, strep viridians bacteremia with findings of stroke on MRI - acute vs. 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 Patient was treated for bacteremia with IV abx. Guardianship establishment pending court date, which was rescheduled for early May. Plan: Altered mental status At baseline this AM; AAOx2 on evaluation. Cont. delirium precautions PT -patient refusing to participate Cont ASA 81 QD / LIPITOR 20 QD Dorsal Right Foot Ulcer Bandaged. Non purulent. Podiatry recommendations appreciated Wound care following On [facility] No antibiotics warranted at this time per ID Coag negative Staphylococcus bacteremia - resolved Last bld clx negative 12/04/17 with completion of 6 week course of antibiotics Monitor WBC, ESR, CRP weekly Echocardiogram unable to rule out vegetations, family is unavailable for consent for TAHIR Colonic mass CT Abd/Pelvis showing colonic mass and hepatic lesions GI consulted: follow recs Flex sig/colonoscopy refused by patient Family unable to be contacted for consent Diabetes mellitus type 2 Cont RISS low Cont Metformin 500mg BID Cont accuchecks Carb consistent diet HTN BP Stable, continue to monitor Cont Lisinopril 10 QD Cont Amlodipine 10 mg PO QD Affective disorder Cont Celexa 10mg PO Daily Constipation Colace 100mg BID Miralax 17gm BID Discontinued Lactulose Hx ETOH Abuse Cont Thiamine Cont Folic Acid Cont Multivitamin DVT Prophylaxis: SCDs Dispo: Patient continues to display a lack of decision making capacity: Guardianship status to be determined; Court date for guardianship postponed to early May. Patient seen, case reviewed, and plan agreed upon with Dr. Schumacher. Rohit Chisholm, PGY-1 <Deanna Schumacher - Last Filed: 05/15/18 14:06> Objective - Vital Signs/Intake and Output Vital Signs (last 24 hours): Temp Pulse Resp BP Pulse Ox 97.5 F L 86 20 136/80 96 05/15/18 07:57 05/15/18 07:57 05/15/18 07:57 05/15/18 10:57 05/15/18 07:57 Intake and Output: 05/15/18 05/15/18 06:59 18:59 Intake Total 0 Balance 0 - Medications Medications: Current Medications Amlodipine Besylate (Norvasc) 10 mg PO DAILY [facility] Last Admin: 05/15/18 10:57 Dose: 10 mg Aspirin (Ecotrin) 81 mg PO DAILY [facility] Last Admin: 05/15/18 10:58 Dose: 81 mg Atorvastatin Calcium (Lipitor) 20 mg PO DIN [facility] Last Admin: 05/14/18 17:35 Dose: 20 mg Citalopram Hydrobromide (Celexa) 10 mg PO DAILY [facility] Last Admin: 05/15/18 10:57 Dose: 10 mg Collagenase (Santyl) 0 gm TOP DAILY [facility] Last Admin: 05/15/18 10:58 Dose: 1 applic Docusate Sodium (Colace) 100 mg PO BID [facility] Last Admin: 05/15/18 10:59 Dose: 100 mg Insulin Human Regular (Humulin R Low) 0 units SC ACHS [facility] PRN Reason: Protocol Last Admin: 05/15/18 12:09 Dose: Not Given Lisinopril (Zestril) 10 mg PO DAILY [facility] Last Admin: 05/15/18 10:58 Dose: 10 mg Metformin HCl (Glucophage) 500 mg PO BID [facility] Last Admin: 05/15/18 10:58 Dose: 500 mg Multivitamins/Minerals (Therapeutic-M Tab) 1 tab PO 0800 [facility] Last Admin: 05/15/18 10:57 Dose: 1 tab Polyethylene Glycol (Miralax) 17 gm PO BID [facility] Last Admin: 05/15/18 10:59 Dose: 17 gm Thiamine HCl (Vitamin B1 Tab) 100 mg PO DAILY [facility] Last Admin: 05/15/18 10:58 Dose: 100 mg - Labs Labs: 05/11/18 06:20 05/11/18 06:20 PT 12.5 SECONDS (9.4-12.5) 12/09/17 10:00 INR 1.09 (0.93-1.08) H 12/09/17 10:00 APTT 28.3 Seconds (25.1-36.5) 11/30/17 05:30 Attending/Attestation - Attestation I have personally seen and examined this patient.: Yes I have fully participated in the care of the patient.: Yes I have reviewed all pertinent clinical information, including history, physical exam and plan: Yes Notes (Text): 05/15/18 14:02 Medical record note made by the resident after discussion with my direction and input after the patient was personally seen and examined by me. I have reviewed the chart and agree that the record accurately reflects by personal performance of the history, physical exam, data review, and medical decision-making, in the course for the patient. I have also personally directed the plan of care. 57 yrs old male , S/P sepsis due to strep viridans and CoNS bacteremia from right gluteal and back cellulitis, S/P multifocal HCAP on top of Influenza A infection and S/P Sammie infection of sacral area as well. Mental status is at base line, Patient has decubitus ulcer in the leg.Podiatry is following. Patient is awaiting for placement Prognosis is guarded.
[2018-05-16] MEDS: Insulin Reg-LOW-Coverage SC SCH ×4 (08:14→21:44)
--- NOTE | 2018-05-16 09:02 | CP.PCM.PN ---
<Mariano Morin - Last Filed: 05/16/18 18:28> Subjective - Date & Time of Evaluation Date of Evaluation: 05/16/18 Time of Evaluation: 08:59 - Subjective Subjective: Mariano Morin DO PGY1 Internal Medicine [employer] - Hospital Progress Note Pt. seen and examined this AM at bedside; No issues reported by nursing overnight. Has not had BM this AM yet as per nursing; will follow up throughout the day. He is at baseline and voicing no complaints at this time. Still refusing to get out of bed. 12 system ROS unremarkable. Objective - Vital Signs/Intake and Output Vital Signs (last 24 hours): Temp Pulse Resp BP Pulse Ox 98.2 F 92 H 20 112/71 95 05/16/18 07:59 05/16/18 07:59 05/16/18 07:59 05/16/18 07:59 05/16/18 07:59 Intake and Output: 05/16/18 05/16/18 06:59 18:59 Intake Total 0 Output Total 0 Balance 0 - Medications Medications: Current Medications Amlodipine Besylate (Norvasc) 10 mg PO DAILY [facility] Last Admin: 05/15/18 10:57 Dose: 10 mg Aspirin (Ecotrin) 81 mg PO DAILY [facility] Last Admin: 05/15/18 10:58 Dose: 81 mg Atorvastatin Calcium (Lipitor) 20 mg PO DIN [facility] Last Admin: 05/15/18 17:05 Dose: 20 mg Citalopram Hydrobromide (Celexa) 10 mg PO DAILY [facility] Last Admin: 05/15/18 10:57 Dose: 10 mg Collagenase (Santyl) 0 gm TOP DAILY [facility] Last Admin: 05/15/18 10:58 Dose: 1 applic Docusate Sodium (Colace) 100 mg PO BID [facility] Last Admin: 05/15/18 17:05 Dose: 100 mg Insulin Human Regular (Humulin R Low) 0 units SC ACHS [facility] PRN Reason: Protocol Last Admin: 05/15/18 21:58 Dose: Not Given Lisinopril (Zestril) 10 mg PO DAILY [facility] Last Admin: 05/15/18 10:58 Dose: 10 mg Metformin HCl (Glucophage) 500 mg PO BID [facility] Last Admin: 05/15/18 17:05 Dose: 500 mg Multivitamins/Minerals (Therapeutic-M Tab) 1 tab PO 0800 [facility] Last Admin: 05/15/18 10:57 Dose: 1 tab Polyethylene Glycol (Miralax) 17 gm PO BID [facility] Last Admin: 05/15/18 17:05 Dose: 17 gm Thiamine HCl (Vitamin B1 Tab) 100 mg PO DAILY [facility] Last Admin: 05/15/18 10:58 Dose: 100 mg - Labs Labs: 05/11/18 06:20 05/11/18 06:20 PT 12.5 SECONDS (9.4-12.5) 12/09/17 10:00 INR 1.09 (0.93-1.08) H 12/09/17 10:00 APTT 28.3 Seconds (25.1-36.5) 11/30/17 05:30 - Constitutional Appears: Non-toxic, No Acute Distress, Confused, Awake at baseline - Head Exam Head Exam: ATRAUMATIC, NORMAL INSPECTION, NORMOCEPHALIC - Eye Exam Eye Exam: EOMI, Normal appearance, PERRL - ENT Exam ENT Exam: Mucous Membranes Moist, Normal Oropharynx - Neck Exam Neck Exam: Full ROM, Normal Inspection - Respiratory Exam Respiratory Exam: Clear to Ausculation Bilateral, NORMAL BREATHING PATTERN, no rales, wheezes or rhonchi - Cardiovascular Exam Cardiovascular Exam: REGULAR RHYTHM, +S1, +S2 - GI/Abdominal Exam GI & Abdominal Exam: Soft, Normal Bowel Sounds - Extremities Exam Extremities Exam: Normal Capillary Refill, Normal Inspection Additional comments: R foot bandaged; dressing is clean dry and intact; - Back Exam Back Exam: NORMAL INSPECTION - Neurological Exam Neurological Exam: Alert, Awake Additional comments: Oriented x2 - Psychiatric Exam Psychiatric exam: Flat Affect - Skin Skin Exam: Dry, Intact, Warm Assessment and Plan - Assessment and Plan (Free Text) Assessment: Assessment: 57 year old male unknown PMHx admitted on 11/29/17 for AMS, right hip cellulitis , multifocal pneumonia, influenza A, strep viridians bacteremia with findings of stroke on MRI - acute vs. 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 Patient was treated for bacteremia with IV abx. Guardianship establishment pending court date, which was rescheduled for early May. Plan: Altered mental status At baseline this AM Cont. delirium precautions PT -patient refusing to participate Cont ASA 81 QD / LIPITOR 20 QD Dorsal Right Foot Ulcer Bandaged. Non purulent. Podiatry recommendations appreciated Wound care following On medihoney No antibiotics warranted at this time per ID Coag negative Staphylococcus bacteremia - resolved Last bld clx negative 12/04/17 with completion of 6 week course of antibiotics Monitor WBC, ESR, CRP weekly Echocardiogram unable to rule out vegetations, family is unavailable for consent for TAHIR Colonic mass CT Abd/Pelvis showing colonic mass and hepatic lesions GI consulted: follow recs Flex sig/colonoscopy refused by patient Family unable to be contacted for consent Diabetes mellitus type 2 Cont RISS low Cont Metformin 500mg BID Cont accuchecks Carb consistent diet HTN BP Stable, continue to monitor Cont Lisinopril 10 QD Cont Amlodipine 10 mg PO QD Affective disorder Cont Celexa 10mg PO Daily Constipation Colace 100mg BID Miralax 17gm BID Discontinued Lactulose Hx ETOH Abuse Cont Thiamine Cont Folic Acid Cont Multivitamin DVT Prophylaxis: SCDs Dispo: Patient continues to display a lack of decision making capacity: Guardianship status to be determined; Court date for guardianship postponed to May 28 2018. Pt. seen, examined, and discussed with attending physician Dr. Iraj Morin DO PGY1 Internal Medicine [employer] - Pager [phone] <Sixto Galo - Last Filed: 05/17/18 07:20> Objective - Vital Signs/Intake and Output Vital Signs (last 24 hours): Temp Pulse Resp BP Pulse Ox 97.6 F 90 19 105/66 99 05/16/18 17:14 05/16/18 17:14 05/16/18 17:14 05/16/18 17:14 05/16/18 17:14 Intake and Output: 05/17/18 05/17/18 06:59 18:59 Intake Total 1190 0 Output Total 1100 Balance 1190 -1100 - Medications Medications: Current Medications Amlodipine Besylate (Norvasc) 10 mg PO DAILY [facility] Last Admin: 05/16/18 10:13 Dose: 10 mg Aspirin (Ecotrin) 81 mg PO DAILY [facility] Last Admin: 05/16/18 10:13 Dose: 81 mg Atorvastatin Calcium (Lipitor) 20 mg PO DIN [facility] Last Admin: 05/16/18 17:09 Dose: 20 mg Citalopram Hydrobromide (Celexa) 10 mg PO DAILY [facility] Last Admin: 05/16/18 10:14 Dose: 10 mg Collagenase (Santyl) 0 gm TOP DAILY [facility] Last Admin: 05/16/18 10:14 Dose: 1 applic Insulin Human Regular (Humulin R Low) 0 units SC ACHS [facility] PRN Reason: Protocol Last Admin: 05/16/18 21:44 Dose: Not Given Lisinopril (Zestril) 10 mg PO DAILY [facility] Last Admin: 05/16/18 10:13 Dose: 10 mg Metformin HCl (Glucophage) 500 mg PO BID [facility] Last Admin: 05/16/18 17:09 Dose: 500 mg Multivitamins/Minerals (Therapeutic-M Tab) 1 tab PO 0800 [facility] Last Admin: 05/16/18 10:13 Dose: 1 tab Polyethylene Glycol (Miralax) 17 gm PO BID [facility] Last Admin: 05/16/18 17:09 Dose: 17 gm Thiamine HCl (Vitamin B1 Tab) 100 mg PO DAILY [facility] Last Admin: 05/16/18 10:14 Dose: 100 mg - Labs Labs: 05/11/18 06:20 05/17/18 06:00 PT 12.5 SECONDS (9.4-12.5) 12/09/17 10:00 INR 1.09 (0.93-1.08) H 12/09/17 10:00 APTT 28.3 Seconds (25.1-36.5) 11/30/17 05:30 Attending/Attestation - Attestation I have personally seen and examined this patient.: Yes I have fully participated in the care of the patient.: Yes I have reviewed all pertinent clinical information, including history, physical exam and plan: Yes Notes (Text): 05/16/18 57 year old male who was admitted with altered mental status. He was found to have bacteremia, cellulitis and pneumonia for which he has completed antibiotics. He also had CVA. He is on aspirin and statin. His mental status is at his baseline. Podiatry is following for foot ulceration. He is stable and pending placement. Pending court date in May. Sixto Galo MD Hospitalist.
[2018-05-16] MEDS: Multivitamin With Minerals Tab PO SCH (10:13)
[2018-05-16] MEDS: POLYETHYLENE GLYCOL 3350 17 GM/Dose PACKET PO SCH ×2 (10:13→17:09)
[2018-05-16] MEDS: Collagenase 250 Units/gm Ointment(30 gm) TOP SCH (10:14)
--- NOTE | 2018-05-16 13:49 | CP.PCM.PN ---
<Car Nicholson - Last Filed: 05/16/18 13:45> Subjective - Date & Time of Evaluation Date of Evaluation: 05/16/18 Time of Evaluation: 13:45 - Subjective Subjective: Podiatry Progress Note for Dr. Oakley 57M seen at bedside for right anterior ankle ulceration and left ankle abrasion. Patient is AAO x 3 and NAD at time of evaluation. States that his pain is still present to the anterior right ankle. Patient denies any acute overnight events. Denies any new pedal complaints at this time. Denies any recent N/V/F/C/CP/SOB/D/posterior calf pain when squeezed. Objective - Vital Signs/Intake and Output Vital Signs (last 24 hours): Temp Pulse Resp BP Pulse Ox 98.2 F 92 H 20 112/71 95 05/16/18 07:59 05/16/18 07:59 05/16/18 07:59 05/16/18 10:13 05/16/18 07:59 Intake and Output: 05/16/18 05/16/18 06:59 18:59 Intake Total 0 Output Total 0 Balance 0 - Medications Medications: Current Medications Amlodipine Besylate (Norvasc) 10 mg PO DAILY [facility] Last Admin: 05/16/18 10:13 Dose: 10 mg Aspirin (Ecotrin) 81 mg PO DAILY [facility] Last Admin: 05/16/18 10:13 Dose: 81 mg Atorvastatin Calcium (Lipitor) 20 mg PO DIN [facility] Last Admin: 05/15/18 17:05 Dose: 20 mg Citalopram Hydrobromide (Celexa) 10 mg PO DAILY [facility] Last Admin: 05/16/18 10:14 Dose: 10 mg Collagenase (Santyl) 0 gm TOP DAILY [facility] Last Admin: 05/16/18 10:14 Dose: 1 applic Insulin Human Regular (Humulin R Low) 0 units SC ACHS [facility] PRN Reason: Protocol Last Admin: 05/16/18 08:14 Dose: Not Given Lisinopril (Zestril) 10 mg PO DAILY [facility] Last Admin: 05/16/18 10:13 Dose: 10 mg Metformin HCl (Glucophage) 500 mg PO BID [facility] Last Admin: 05/16/18 10:14 Dose: 500 mg Multivitamins/Minerals (Therapeutic-M Tab) 1 tab PO 0800 [facility] Last Admin: 05/16/18 10:13 Dose: 1 tab Polyethylene Glycol (Miralax) 17 gm PO BID [facility] Last Admin: 05/16/18 10:13 Dose: 17 gm Thiamine HCl (Vitamin B1 Tab) 100 mg PO DAILY [facility] Last Admin: 05/16/18 10:14 Dose: 100 mg - Labs Labs: 05/11/18 06:20 05/11/18 06:20 PT 12.5 SECONDS (9.4-12.5) 12/09/17 10:00 INR 1.09 (0.93-1.08) H 12/09/17 10:00 APTT 28.3 Seconds (25.1-36.5) 11/30/17 05:30 - Constitutional Appears: Well, Non-toxic, No Acute Distress - Extremities Exam Additional comments: B/L Lower extremity exam: VASC: DP and PT faintly palpable b/l, CFT delayed > 3 seconds x 10 digits, temperature gradient cool to cool, no edema noted to the lower extremity NEURO: Epicritic and protective sensation grossly intact b/l DERM: Right: ulceration noted to the anterior aspect of right ankle at the level of the ankle joint measuring approximately 2 x 2 cm with necrotic scab sloughing off with wound base being mainly fibrotic underlying. No streaking, no drainage , no tunneling, no abscess, no odor or drainage, no fluctuance noted, no clinical signs of infection. Thin erythema rim likely secondary to irritation. Left: Very small superficial abrasion noted to the anterior aspect of left ankle with scabbing over. No streaking, no drainage, no tunneling, no abscess, no lifting of the scab noted, no odor or drainage, no abscess or fluctanance noted, no clinical signs of infection ORTHO: no pain with palpation to the entire lower extremity, no calf pain or tenderness appreciated, unable to assess MMT secondary to patient's cooperation - Neurological Exam Neurological Exam: Alert, Awake, Oriented x3 - Psychiatric Exam Psychiatric exam: Normal Affect, Normal Mood Assessment and Plan - Assessment and Plan (Free Text) Assessment: 57 y.o male with clinically stable 1) right anterior ankle ulceration 2) left ankle superficial abrasion Plan: Patient seen and evaluated Plan discussed with attending Dr. Oakley Afebrile, absent leukocytosis Wound dressing changed with Santyl, optifoam, DSD No plans for surgical intervention at this time Podiatry will continue to follow while patient in house <Ivania Oakley - Last Filed: 05/25/18 08:00> Objective - Vital Signs/Intake and Output Vital Signs (last 24 hours): Temp Pulse Resp BP Pulse Ox 97.3 F L 70 18 102/66 95 05/25/18 07:47 05/25/18 07:47 05/25/18 07:47 05/25/18 07:47 05/25/18 07:47 Intake and Output: 05/25/18 05/25/18 06:59 18:59 Intake Total 180 Balance 180 - Medications Medications: Current Medications Amlodipine Besylate (Norvasc) 10 mg PO DAILY [facility] Last Admin: 05/24/18 11:28 Dose: 10 mg Aspirin (Ecotrin) 81 mg PO DAILY [facility] Last Admin: 05/24/18 11:28 Dose: 81 mg Atorvastatin Calcium (Lipitor) 20 mg PO DIN [facility] Last Admin: 05/24/18 18:15 Dose: 20 mg Insulin Human Regular (Humulin R Low) 0 units SC [facility] PRN Reason: Protocol Last Admin: 05/24/18 22:39 Dose: Not Given Lisinopril (Zestril) 10 mg PO DAILY [facility] Last Admin: 05/24/18 11:30 Dose: 10 mg Metformin HCl (Glucophage) 500 mg PO BID [facility] Last Admin: 05/24/18 18:15 Dose: 500 mg Multivitamins/Minerals (Therapeutic-M Tab) 1 tab PO 0800 [facility] Last Admin: 05/24/18 11:29 Dose: 1 tab Thiamine HCl (Vitamin B1 Tab) 100 mg PO DAILY [facility] Last Admin: 05/23/18 09:34 Dose: 100 mg - Labs Labs: 05/25/18 06:05 05/25/18 06:05 PT 12.5 SECONDS (9.4-12.5) 12/09/17 10:00 INR 1.09 (0.93-1.08) H 12/09/17 10:00 APTT 28.3 Seconds (25.1-36.5) 11/30/17 05:30 Attending/Attestation - Attestation I have personally seen and examined this patient.: Yes I have fully participated in the care of the patient.: Yes I have reviewed all pertinent clinical information, including history, physical exam and plan: Yes
--- NOTE | 2018-05-16 16:08 | CP.PCM.PN ---
Subjective - Date & Time of Evaluation Date of Evaluation: 05/16/18 Time of Evaluation: 12:25 - Subjective Subjective: Afebrile, comfortable in bed. Objective - Vital Signs/Intake and Output Vital Signs (last 24 hours): Temp Pulse Resp BP Pulse Ox 98.2 F 92 H 20 112/71 95 05/16/18 07:59 05/16/18 07:59 05/16/18 07:59 05/16/18 10:13 05/16/18 07:59 Intake and Output: 05/16/18 05/16/18 06:59 18:59 Intake Total 0 Output Total 0 Balance 0 - Medications Medications: Current Medications Amlodipine Besylate (Norvasc) 10 mg PO DAILY [facility] Last Admin: 05/16/18 10:13 Dose: 10 mg Aspirin (Ecotrin) 81 mg PO DAILY [facility] Last Admin: 05/16/18 10:13 Dose: 81 mg Atorvastatin Calcium (Lipitor) 20 mg PO DIN [facility] Last Admin: 05/15/18 17:05 Dose: 20 mg Citalopram Hydrobromide (Celexa) 10 mg PO DAILY [facility] Last Admin: 05/16/18 10:14 Dose: 10 mg Collagenase (Santyl) 0 gm TOP DAILY [facility] Last Admin: 05/16/18 10:14 Dose: 1 applic Docusate Sodium (Colace) 100 mg PO BID [facility] Last Admin: 05/16/18 10:13 Dose: 100 mg Insulin Human Regular (Humulin R Low) 0 units SC [facility] PRN Reason: Protocol Last Admin: 05/16/18 08:14 Dose: Not Given Lisinopril (Zestril) 10 mg PO DAILY [facility] Last Admin: 05/16/18 10:13 Dose: 10 mg Metformin HCl (Glucophage) 500 mg PO BID [facility] Last Admin: 05/16/18 10:14 Dose: 500 mg Multivitamins/Minerals (Therapeutic-M Tab) 1 tab PO 0800 [facility] Last Admin: 05/16/18 10:13 Dose: 1 tab Polyethylene Glycol (Miralax) 17 gm PO BID [facility] Last Admin: 05/16/18 10:13 Dose: 17 gm Thiamine HCl (Vitamin B1 Tab) 100 mg PO DAILY [facility] Last Admin: 05/16/18 10:14 Dose: 100 mg - Labs Labs: 05/11/18 06:20 05/11/18 06:20 PT 12.5 SECONDS (9.4-12.5) 12/09/17 10:00 INR 1.09 (0.93-1.08) H 12/09/17 10:00 APTT 28.3 Seconds (25.1-36.5) 11/30/17 05:30 - Constitutional Appears: Chronically Ill - Head Exam Head Exam: NORMAL INSPECTION - ENT Exam ENT Exam: Mucous Membranes Moist - Neck Exam Neck Exam: absent: Meningismus - Respiratory Exam Respiratory Exam: Decreased Breath Sounds - Cardiovascular Exam Cardiovascular Exam: +S1, +S2 - GI/Abdominal Exam GI & Abdominal Exam: Soft. absent: Tenderness Assessment and Plan - Assessment and Plan (Free Text) Plan: Assessment S/P sepsis due to strep viridans and CoNS bacteremia from right gluteal and back cellulitis S/P multifocal HCAP on top of Influenza A infection S/P Sammie infection of sacral area as well peripheral vascular disease Plan continue to monitor clinically off antibiotics since he is at risk for nosocomial infections
[2018-05-17 06:51] LABS: BASO # 0.03 K/mm3 (0.0-2.0); BASO % 0.2 % (0.0-3.0); EOS % 0.1 % (1.5-5.0); GRAN # 11.55 (1.4-6.5); GRAN % 84.2 % (50.0-68.0); HEMOGLOBIN 10.6 g/dL (14.0-18.0); MEAN CELL VOLUME 77.9 fl (80.0-105.0); MEAN CORPUSCULAR HEMOGLOBIN 25.2 pg (25.0-35.0); MEAN CORPUSCULAR HGB CONC 32.4 g/dl (31.0-37.0); MEAN PLATELET VOLUME 9.1 fl (7.0-11.0); MONO # 1.2 (0.1-0.6); MONO % 8.5 % (1.0-6.0); RBC 4.2 10^6/uL (3.5-6.1); RED CELL DISTRIBUTION WIDTH 15.1 % (11.5-14.5); WHITE BLOOD COUNT 13.7 10^3/ul (4.5-11.0)
[2018-05-17 07:07] LABS: ALB/GLOB RATIO 1.2 (1.1-1.8); ALT/SGPT 28 U/L (7-56); AST/SGOT 56 U/L (17-59); BLOOD UREA NITROGEN 16 mg/dL (7-21); CALCIUM 9.5 mg/dL (8.4-10.5); GFR NON-AFRICAN AMERICAN > 60
[2018-05-17] MEDS: Insulin Reg-LOW-Coverage SC SCH ×4 (08:02→22:33)
[2018-05-17] MEDS: Multivitamin With Minerals Tab PO SCH (11:09)
[2018-05-17] MEDS: Collagenase 250 Units/gm Ointment(30 gm) TOP SCH (14:01)
[2018-05-17] MEDS: POLYETHYLENE GLYCOL 3350 17 GM/Dose PACKET PO SCH ×2 (14:48→18:00)
--- NOTE | 2018-05-17 15:56 | CP.PCM.PN ---
<Car Nicholson - Last Filed: 05/17/18 15:53> Subjective - Date & Time of Evaluation Date of Evaluation: 05/17/18 Time of Evaluation: 15:53 - Subjective Subjective: Podiatry progress note for Dr. Davis 57F seen at bedside for right anterior ankle ulceration and left ankle abrasion. Patient is AAO x 3 and NAD at time of visit. Per nursing, no acute overnight events. Patient denies any pain to his right anterior ankle at this time. Denies any further pedal complaints at this time. Denies any recent N/V/F/ C/CP/SOB/D/posterior calf pain when squeezed. Objective - Vital Signs/Intake and Output Vital Signs (last 24 hours): Temp Pulse Resp BP Pulse Ox 98.5 F 120 H 20 117/69 91 L 05/17/18 08:05 05/17/18 11:08 05/17/18 08:05 05/17/18 11:08 05/17/18 08:05 Intake and Output: 05/17/18 05/17/18 06:59 18:59 Intake Total 1190 0 Output Total 1100 Balance 1190 -1100 - Medications Medications: Current Medications Amlodipine Besylate (Norvasc) 10 mg PO DAILY [facility] Last Admin: 05/17/18 11:07 Dose: 10 mg Aspirin (Ecotrin) 81 mg PO DAILY [facility] Last Admin: 05/17/18 14:48 Dose: 81 mg Atorvastatin Calcium (Lipitor) 20 mg PO DIN [facility] Last Admin: 05/16/18 17:09 Dose: 20 mg Citalopram Hydrobromide (Celexa) 10 mg PO DAILY [facility] Last Admin: 05/17/18 11:09 Dose: 10 mg Collagenase (Santyl) 0 gm TOP DAILY [facility] Last Admin: 05/16/18 10:14 Dose: 1 applic Insulin Human Regular (Humulin R Low) 0 units SC ACHS [facility] PRN Reason: Protocol Last Admin: 05/17/18 12:37 Dose: 1 units Lisinopril (Zestril) 10 mg PO DAILY [facility] Last Admin: 05/17/18 11:08 Dose: 10 mg Metformin HCl (Glucophage) 500 mg PO BID [facility] Last Admin: 05/17/18 11:08 Dose: 500 mg Multivitamins/Minerals (Therapeutic-M Tab) 1 tab PO 0800 [facility] Last Admin: 05/17/18 11:09 Dose: 1 tab Polyethylene Glycol (Miralax) 17 gm PO BID [facility] Last Admin: 05/17/18 14:48 Dose: 17 gm Thiamine HCl (Vitamin B1 Tab) 100 mg PO DAILY [facility] Last Admin: 05/17/18 11:08 Dose: 100 mg - Labs Labs: 05/17/18 06:00 05/17/18 06:00 PT 12.5 SECONDS (9.4-12.5) 12/09/17 10:00 INR 1.09 (0.93-1.08) H 12/09/17 10:00 APTT 28.3 Seconds (25.1-36.5) 11/30/17 05:30 - Constitutional Appears: Well, Non-toxic, No Acute Distress - Extremities Exam Additional comments: B/L Lower extremity exam: VASC: DP and PT faintly palpable b/l, CFT delayed > 3 seconds x 10 digits, temperature gradient cool to cool, no edema noted to the lower extremity NEURO: Epicritic and protective sensation grossly intact b/l DERM: Right: ulceration noted to the anterior aspect of right ankle at the level of the ankle joint measuring approximately 2 x 2 cm with necrotic scab sloughing off with wound base being mainly fibrotic underlying. No streaking, no drainage , no tunneling, no abscess, no odor or drainage, no fluctuance noted, no clinical signs of infection. Thin erythema rim likely secondary to irritation. Left: Superficial abrasion noted to be healed at this time ORTHO: no pain with palpation to the entire lower extremity, no calf pain or tenderness appreciated, unable to assess MMT secondary to patient's cooperation - Neurological Exam Neurological Exam: Alert, Awake, Oriented x3 - Psychiatric Exam Psychiatric exam: Normal Affect, Normal Mood Assessment and Plan - Assessment and Plan (Free Text) Assessment: 57F seen at bedside for right anterior ankle ulceration Plan: Patient seen and evaluated with attending Dr. Davis Afebrile, WBC 13.7 Wound dressing changed with Santyljeffoam, DSD No plans for surgical intervention at this time Podiatry will continue to follow while patient in house <Raciel Davis - Last Filed: 05/18/18 19:04> Objective - Vital Signs/Intake and Output Vital Signs (last 24 hours): Temp Pulse Resp BP Pulse Ox 97.5 F L 86 19 96/61 L 95 05/18/18 17:12 05/18/18 17:12 05/18/18 17:12 05/18/18 17:12 05/18/18 17:12 - Medications Medications: Current Medications Amlodipine Besylate (Norvasc) 10 mg PO DAILY [facility] Last Admin: 05/18/18 12:20 Dose: 10 mg Aspirin (Ecotrin) 81 mg PO DAILY [facility] Last Admin: 05/18/18 12:19 Dose: 81 mg Atorvastatin Calcium (Lipitor) 20 mg PO DIN [facility] Last Admin: 05/18/18 17:35 Dose: 20 mg Citalopram Hydrobromide (Celexa) 10 mg PO DAILY [facility] Last Admin: 05/18/18 12:19 Dose: 10 mg Collagenase (Santyl) 0 gm TOP DAILY [facility] Last Admin: 05/17/18 14:01 Dose: 1 applic Insulin Human Regular (Humulin R Low) 0 units SC [facility] PRN Reason: Protocol Last Admin: 05/18/18 17:35 Dose: 1 units Lisinopril (Zestril) 10 mg PO DAILY [facility] Last Admin: 05/18/18 12:21 Dose: 10 mg Metformin HCl (Glucophage) 500 mg PO BID [facility] Last Admin: 05/18/18 17:36 Dose: 500 mg Multivitamins/Minerals (Therapeutic-M Tab) 1 tab PO 0800 [facility] Last Admin: 05/18/18 12:21 Dose: 1 tab Polyethylene Glycol (Miralax) 17 gm PO BID [facility] Last Admin: 05/18/18 17:36 Dose: 17 gm Thiamine HCl (Vitamin B1 Tab) 100 mg PO DAILY [facility] Last Admin: 05/18/18 12:21 Dose: 100 mg - Labs Labs: 05/18/18 06:15 05/18/18 06:15 PT 12.5 SECONDS (9.4-12.5) 12/09/17 10:00 INR 1.09 (0.93-1.08) H 12/09/17 10:00 APTT 28.3 Seconds (25.1-36.5) 11/30/17 05:30 Attending/Attestation - Attestation I have personally seen and examined this patient.: Yes I have fully participated in the care of the patient.: Yes I have reviewed all pertinent clinical information, including history, physical exam and plan: Yes
--- NOTE | 2018-05-17 16:14 | PN ---
Copied To: Daniel Torres MD Attending MD: Daniel Torres MD. DATE: 05/17/2018 SUBJECTIVE: The patient is seen in bed, in no acute distress, nontoxic. PHYSICAL EXAMINATION: VITAL SIGNS: Temperature is 98, blood pressure is 117/60, respiratory rate of 20. HEENT: Examination of HEENT is unremarkable. NECK: Supple. LUNGS: Have decreased breath sounds. HEART: Normal S1, S2. ABDOMEN: Soft. LABORATORY DATA: Laboratory examination is reviewed. ASSESSMENT AND PLAN: A 57-year-old male with status post sepsis, admitted with Streptococcus viridans, coag-negative bacteremia with a right gluteal and back cellulitis. Currently off of antibiotics. The patient also had multifocal healthcare-associated pneumonia on top of influenza A. The patient is at risk for developing nosocomial infections. The patient's white count did increase to 13,700 today and recommend repeating it at this time, but clinically the patient is unchanged. Daniel Torres MD
--- NOTE | 2018-05-17 17:11 | CP.PCM.PN ---
<Mariano Morin - Last Filed: 05/17/18 17:07> Subjective - Date & Time of Evaluation Date of Evaluation: 05/17/18 Time of Evaluation: 17:13 - Subjective Subjective: Mariano Morin DO PGY1 Internal Medicine Clinical Exercise Specialist - Hospital Progress Note Pt. seen and examined at bedside this AM; no acute complaints voiced by patient at this time. Last night nursing reported patient had BM. 12 system ROS was otherwise unremarkable. Objective - Vital Signs/Intake and Output Vital Signs (last 24 hours): Temp Pulse Resp BP Pulse Ox 98.5 F 120 H 20 117/69 91 L 05/17/18 08:05 05/17/18 11:08 05/17/18 08:05 05/17/18 11:08 05/17/18 08:05 Intake and Output: 05/17/18 05/17/18 06:59 18:59 Intake Total 1190 0 Output Total 1100 Balance 1190 -1100 - Medications Medications: Current Medications Amlodipine Besylate (Norvasc) 10 mg PO DAILY [facility] Last Admin: 05/17/18 11:07 Dose: 10 mg Aspirin (Ecotrin) 81 mg PO DAILY [facility] Last Admin: 05/17/18 14:48 Dose: 81 mg Atorvastatin Calcium (Lipitor) 20 mg PO DIN [facility] Last Admin: 05/16/18 17:09 Dose: 20 mg Citalopram Hydrobromide (Celexa) 10 mg PO DAILY [facility] Last Admin: 05/17/18 11:09 Dose: 10 mg Collagenase (Santyl) 0 gm TOP DAILY [facility] Last Admin: 05/16/18 10:14 Dose: 1 applic Insulin Human Regular (Humulin R Low) 0 units SC [facility] PRN Reason: Protocol Last Admin: 05/17/18 12:37 Dose: 1 units Lisinopril (Zestril) 10 mg PO DAILY [facility] Last Admin: 05/17/18 11:08 Dose: 10 mg Metformin HCl (Glucophage) 500 mg PO BID [facility] Last Admin: 05/17/18 11:08 Dose: 500 mg Multivitamins/Minerals (Therapeutic-M Tab) 1 tab PO 0800 [facility] Last Admin: 05/17/18 11:09 Dose: 1 tab Polyethylene Glycol (Miralax) 17 gm PO BID [facility] Last Admin: 05/17/18 14:48 Dose: 17 gm Thiamine HCl (Vitamin B1 Tab) 100 mg PO DAILY [facility] Last Admin: 05/17/18 11:08 Dose: 100 mg - Labs Labs: 05/17/18 06:00 05/17/18 06:00 PT 12.5 SECONDS (9.4-12.5) 12/09/17 10:00 INR 1.09 (0.93-1.08) H 12/09/17 10:00 APTT 28.3 Seconds (25.1-36.5) 11/30/17 05:30 Physical Exam - Constitutional Appears: Non-toxic, No Acute Distress, Confused, Awake at baseline - Head Exam Head Exam: ATRAUMATIC, NORMAL INSPECTION, NORMOCEPHALIC - Eye Exam Eye Exam: EOMI, Normal appearance, PERRL - ENT Exam ENT Exam: Mucous Membranes Moist, Normal Oropharynx - Neck Exam Neck Exam: Full ROM, Normal Inspection - Respiratory Exam Respiratory Exam: Clear to Ausculation Bilateral, NORMAL BREATHING PATTERN, no rales, wheezes or rhonchi - Cardiovascular Exam Cardiovascular Exam: REGULAR RHYTHM, +S1, +S2 - GI/Abdominal Exam GI & Abdominal Exam: Soft, Normal Bowel Sounds - Extremities Exam Extremities Exam: Normal Capillary Refill, Normal Inspection Additional comments: R foot bandaged; dressing is clean dry and intact; - Back Exam Back Exam: NORMAL INSPECTION - Neurological Exam Neurological Exam: Alert, Awake Additional comments: Oriented x2 - Psychiatric Exam Psychiatric exam: Flat Affect - Skin Skin Exam: Dry, Intact, Warm Assessment and Plan - Assessment and Plan (Free Text) Assessment: 57 year old male unknown PMHx admitted on 11/29/17 for AMS, right hip cellulitis , multifocal pneumonia, influenza A, strep viridians bacteremia with findings of stroke on MRI - acute vs. 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 Patient was treated for bacteremia with IV abx. Guardianship establishment pending court date, which was rescheduled for early May. Plan: Leukocytosis Pt. w/ new onset leukocytosis; Had runs of tachycardia throughout the day Afebrile at this time; does not appear to be clinically toxic Will closely monitor at this time and obtain follow up BMP in the AM. Altered mental status At baseline this AM Cont. delirium precautions PT -patient refusing to participate Cont ASA 81 QD / LIPITOR 20 QD Dorsal Right Foot Ulcer Bandaged. Non purulent. Podiatry recommendations appreciated Wound care following On [facility] No antibiotics warranted at this time per ID Coag negative Staphylococcus bacteremia - resolved Last bld clx negative 12/04/17 with completion of 6 week course of antibiotics Monitor WBC, ESR, CRP weekly Echocardiogram unable to rule out vegetations, family is unavailable for consent for TAHIR Colonic mass CT Abd/Pelvis showing colonic mass and hepatic lesions GI consulted: follow recs Flex sig/colonoscopy refused by patient Family unable to be contacted for consent Diabetes mellitus type 2 Cont RISS low Cont Metformin 500mg BID Cont accuchecks Carb consistent diet HTN BP Stable, continue to monitor Cont Lisinopril 10 QD Cont Amlodipine 10 mg PO QD Affective disorder Cont Celexa 10mg PO Daily Constipation Colace 100mg BID Miralax 17gm BID Discontinued Lactulose Hx ETOH Abuse Cont Thiamine Cont Folic Acid Cont Multivitamin DVT Prophylaxis: SCDs Dispo: Patient continues to display a lack of decision making capacity: Guardianship status to be determined; Court date for guardianship postponed to May 28 2018. Pt. seen, examined, and discussed with attending physician Dr. Iraj Morin DO PGY1 Internal Medicine Clinical Exercise Specialist - Pager [phone] <Sixto Galo - Last Filed: 05/17/18 17:22> Objective - Vital Signs/Intake and Output Vital Signs (last 24 hours): Temp Pulse Resp BP Pulse Ox 98.5 F 120 H 20 117/69 91 L 05/17/18 08:05 05/17/18 11:08 05/17/18 08:05 05/17/18 11:08 05/17/18 08:05 Intake and Output: 05/17/18 05/17/18 06:59 18:59 Intake Total 1190 0 Output Total 1100 Balance 1190 -1100 - Medications Medications: Current Medications Amlodipine Besylate (Norvasc) 10 mg PO DAILY [facility] Last Admin: 05/17/18 11:07 Dose: 10 mg Aspirin (Ecotrin) 81 mg PO DAILY [facility] Last Admin: 05/17/18 14:48 Dose: 81 mg Atorvastatin Calcium (Lipitor) 20 mg PO DIN [facility] Last Admin: 05/16/18 17:09 Dose: 20 mg Citalopram Hydrobromide (Celexa) 10 mg PO DAILY [facility] Last Admin: 05/17/18 11:09 Dose: 10 mg Collagenase (Santyl) 0 gm TOP DAILY [facility] Last Admin: 05/16/18 10:14 Dose: 1 applic Insulin Human Regular (Humulin R Low) 0 units SC ACHS [facility] PRN Reason: Protocol Last Admin: 05/17/18 12:37 Dose: 1 units Lisinopril (Zestril) 10 mg PO DAILY [facility] Last Admin: 05/17/18 11:08 Dose: 10 mg Metformin HCl (Glucophage) 500 mg PO BID [facility] Last Admin: 05/17/18 11:08 Dose: 500 mg Multivitamins/Minerals (Therapeutic-M Tab) 1 tab PO 0800 [facility] Last Admin: 05/17/18 11:09 Dose: 1 tab Polyethylene Glycol (Miralax) 17 gm PO BID [facility] Last Admin: 05/17/18 14:48 Dose: 17 gm Thiamine HCl (Vitamin B1 Tab) 100 mg PO DAILY [facility] Last Admin: 05/17/18 11:08 Dose: 100 mg - Labs Labs: 05/17/18 06:00 05/17/18 06:00 PT 12.5 SECONDS (9.4-12.5) 12/09/17 10:00 INR 1.09 (0.93-1.08) H 12/09/17 10:00 APTT 28.3 Seconds (25.1-36.5) 11/30/17 05:30 Attending/Attestation - Attestation I have personally seen and examined this patient.: Yes I have fully participated in the care of the patient.: Yes I have reviewed all pertinent clinical information, including history, physical exam and plan: Yes Notes (Text): 05/17/18 17:20 57 year old male who was admitted with altered mental status. He was found to have bacteremia, cellulitis and pneumonia for which he has completed antibiotics. Leukocytosis today noted. He is afebrile and nontoxic. Will continue to monitor off antibiotics for now. He also had CVA. He is on aspirin and statin. His mental status is at his baseline. Podiatry is following for foot ulceration. He is stable and pending placement. Pending court date in May. Sixto Galo MD Hospitalist.
[2018-05-18 07:08] LABS: ALB/GLOB RATIO 1.1 (1.1-1.8); ALBUMIN 3.8 g/dL (3.0-4.8); ALT/SGPT 47 U/L (7-56); AST/SGOT 73 U/L (17-59); BLOOD UREA NITROGEN 14 mg/dL (7-21); CALCIUM 9.4 mg/dL (8.4-10.5); GFR NON-AFRICAN AMERICAN > 60
[2018-05-18 07:59] LABS: BASO # 0.03 K/mm3 (0.0-2.0); BASO % 0.3 % (0.0-3.0); EOS # 0.1 (0.0-0.7); EOS % 0.8 % (1.5-5.0); GRAN # 5.86 (1.4-6.5); GRAN % 65.2 % (50.0-68.0); HEMOGLOBIN 10.5 g/dL (14.0-18.0); LYMPH # 1.8 (1.2-3.4); LYMPH % 20.3 % (22.0-35.0); MEAN CORPUSCULAR HEMOGLOBIN 24.9 pg (25.0-35.0); MEAN CORPUSCULAR HGB CONC 32.3 g/dl (31.0-37.0); MEAN PLATELET VOLUME 9.3 fl (7.0-11.0); MONO # 1.2 (0.1-0.6); MONO % 13.4 % (1.0-6.0); RBC 4.22 10^6/uL (3.5-6.1); RED CELL DISTRIBUTION WIDTH 15.1 % (11.5-14.5)
[2018-05-18] MEDS: Insulin Reg-LOW-Coverage SC SCH ×4 (08:02→22:14)
--- NOTE | 2018-05-18 10:03 | PN ---
Copied To: Daniel Torres MD Attending MD: Daniel Torres MD. DATE: 05/18/2018 SUBJECTIVE: The patient is in bed, in no acute distress, nontoxic. PHYSICAL EXAMINATION: VITAL SIGNS: Temperature is 98, blood pressure is 112/70, respiratory rate 16. HEENT: Examination of HEENT is unremarkable. NECK: Supple. LUNGS: Have decreased breath sounds. HEART: Normal S1, S2. ABDOMEN: Soft, nontender. LABORATORY DATA: Laboratory examination reveals the patient's white count is 13,700, hemoglobin of 10. Chemistries are noted. Alk phos is elevated at 139. ASSESSMENT AND PLAN: A 57-year-old male, who is initially admitted with sepsis with Streptococcus viridans, coag-negative Staphylococcus bacteremia, right gluteal and back cellulitis. Currently off of antibiotics. The patient did have multifocal healthcare-associated pneumonia on top of influenza A and now has leukocytosis and had an episode of nausea and tachycardia. #1 is systemic inflammatory response syndrome. We will repeat pancultures, blood, urine, sputum, urinalysis, procalcitonin and we will do an ultrasound of the abdomen to look at the gallbladder and rule out acute cholecystitis since the patient did have episode of nausea and vomiting a day before, regarding the size of common bile duct. We will make further recommendations this morning. The patient is clinically stable. We will hold off on antibiotics pending initial workup results. Daniel Torres MD
--- NOTE | 2018-05-18 11:12 | US ---
Date of service: 05/18/2018 HISTORY: size of cbd COMPARISON: 11/26/2017 TECHNIQUE: Sonographic evaluation of the abdomen. FINDINGS: LIVER: Measures cm. Normal echogenicity of the liver parenchyma. Multiple hepatic lesions measuring up to 4.9 centimeters in the right hepatic lobe which could represent metastatic disease. Additional large mass in the left hepatic lobe measuring 3.8 centimeters. GALLBLADDER: Gallstones. COMMON BILE DUCT: Measures 7 millimeters mm. No stones. No dilatation. PANCREAS: Unremarkable as visualized. No mass. No ductal dilatation. RIGHT KIDNEY: Measures cm. Normal echogenicity. No calculus, mass, or hydronephrosis. LEFT KIDNEY: Measures cm. Normal echogenicity. No calculus, mass, or hydronephrosis. SPLEEN: Normal in size and contour. No mass. AORTA: No aneurysmal dilatation. IVC: Unremarkable. OTHER FINDINGS: None. IMPRESSION: 7 millimeter common bile duct. Gallstones. Multiple nonspecific hepatic masses.
[2018-05-18] MEDS: POLYETHYLENE GLYCOL 3350 17 GM/Dose PACKET PO SCH ×2 (12:20→17:36)
[2018-05-18] MEDS: Multivitamin With Minerals Tab PO SCH (12:21)
--- NOTE | 2018-05-18 17:47 | CP.PCM.PN ---
<Mariano Morin - Last Filed: 05/18/18 17:35> Subjective - Date & Time of Evaluation Date of Evaluation: 05/18/18 Time of Evaluation: 17:35 - Subjective Subjective: Mariano Morin DO PGY1 Internal Medicine Casting And Curing Operator - Hospital Progress Note Patient seen and evaluated this [place]; no issues reported by nursing overnight; no changes in clinical presentation. Nursing denied any increased agitation from patient. Pt. is at mental baseline. 12 system ROS negative Objective - Vital Signs/Intake and Output Vital Signs (last 24 hours): Temp Pulse Resp BP Pulse Ox 97.5 F L 86 19 96/61 L 95 05/18/18 17:12 05/18/18 17:12 05/18/18 17:12 05/18/18 17:12 05/18/18 17:12 - Medications Medications: Current Medications Amlodipine Besylate (Norvasc) 10 mg PO DAILY [facility] Last Admin: 05/18/18 12:20 Dose: 10 mg Aspirin (Ecotrin) 81 mg PO DAILY [facility] Last Admin: 05/18/18 12:19 Dose: 81 mg Atorvastatin Calcium (Lipitor) 20 mg PO DIN [facility] Last Admin: 05/16/18 17:09 Dose: 20 mg Citalopram Hydrobromide (Celexa) 10 mg PO DAILY [facility] Last Admin: 05/18/18 12:19 Dose: 10 mg Collagenase (Santyl) 0 gm TOP DAILY [facility] Last Admin: 05/17/18 14:01 Dose: 1 applic Insulin Human Regular (Humulin R Low) 0 units SC [facility] PRN Reason: Protocol Last Admin: 05/18/18 12:22 Dose: Not Given Lisinopril (Zestril) 10 mg PO DAILY [facility] Last Admin: 05/18/18 12:21 Dose: 10 mg Metformin HCl (Glucophage) 500 mg PO BID [facility] Last Admin: 05/18/18 12:20 Dose: 500 mg Multivitamins/Minerals (Therapeutic-M Tab) 1 tab PO 0800 [facility] Last Admin: 05/18/18 12:21 Dose: 1 tab Polyethylene Glycol (Miralax) 17 gm PO BID [facility] Last Admin: 05/18/18 12:20 Dose: 17 gm Thiamine HCl (Vitamin B1 Tab) 100 mg PO DAILY [facility] Last Admin: 05/18/18 12:21 Dose: 100 mg - Labs Labs: 05/18/18 06:15 05/18/18 06:15 PT 12.5 SECONDS (9.4-12.5) 12/09/17 10:00 INR 1.09 (0.93-1.08) H 12/09/17 10:00 APTT 28.3 Seconds (25.1-36.5) 11/30/17 05:30 Physical Exam - Constitutional Appears: Non-toxic, No Acute Distress, Confused, Awake at baseline - Head Exam Head Exam: ATRAUMATIC, NORMAL INSPECTION, NORMOCEPHALIC - Eye Exam Eye Exam: EOMI, Normal appearance, PERRL - ENT Exam ENT Exam: Mucous Membranes Moist, Normal Oropharynx - Neck Exam Neck Exam: Full ROM, Normal Inspection - Respiratory Exam Respiratory Exam: Clear to Ausculation Bilateral, NORMAL BREATHING PATTERN, no rales, wheezes or rhonchi - Cardiovascular Exam Cardiovascular Exam: REGULAR RHYTHM, +S1, +S2 - GI/Abdominal Exam GI & Abdominal Exam: Soft, Normal Bowel Sounds - Extremities Exam Extremities Exam: Normal Capillary Refill, Normal Inspection Additional comments: R foot bandaged; dressing is clean dry and intact; - Back Exam Back Exam: NORMAL INSPECTION - Neurological Exam Neurological Exam: Alert, Awake Additional comments: Oriented x2 - Psychiatric Exam Psychiatric exam: Flat Affect - Skin Skin Exam: Dry, Intact, Warm Assessment and Plan - Assessment and Plan (Free Text) Assessment: 57 year old male unknown PMHx admitted on 11/29/17 for AMS, right hip cellulitis , multifocal pneumonia, influenza A, strep viridians bacteremia with findings of stroke on MRI - acute vs. 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 Patient was treated for bacteremia with IV abx. Guardianship establishment pending court date, which was rescheduled for May 28. Plan: Leukocytosis Leukocytosis resolved this AM; Procal equivocal Patient is still afebrile and heart rate today wnl Patient srinivasan cultured; will follow closely Abd U/S - 7mm common bile duct dilatation and gallstones; Hepatic lesions measuring up to 4.9cm and 3.8 cm; compared to prev abd U/S from 12/05 lesions measured 4.1cm and 3.1cm ID following, appreciate reccs Altered mental status At baseline this AM Cont. delirium precautions PT -patient refusing to participate Cont ASA 81 QD / LIPITOR 20 QD Dorsal Right Foot Ulcer Bandaged. Non purulent. Podiatry recommendations appreciated Wound care following [facility] No antibiotics warranted at this time per ID Coag negative Staphylococcus bacteremia - resolved Last bld clx negative 12/04/17 with completion of 6 week course of antibiotics Monitor WBC, ESR, CRP weekly Echocardiogram unable to rule out vegetations, family is unavailable for consent for TAHIR Colonic mass CT Abd/Pelvis showing colonic mass and hepatic lesions GI consulted: follow recs Flex sig/colonoscopy refused by patient Family unable to be contacted for consent Diabetes mellitus type 2 Cont RISS low Cont Metformin 500mg BID Cont accuchecks Carb consistent diet HTN BP Stable, continue to monitor Cont Lisinopril 10 QD Cont Amlodipine 10 mg PO QD Affective disorder Cont Celexa 10mg PO Daily Constipation Colace 100mg BID Miralax 17gm BID Discontinued Lactulose Hx ETOH Abuse Cont Thiamine Cont Folic Acid Cont Multivitamin DVT Prophylaxis: SCDs Dispo: Patient continues to display a lack of decision making capacity: Guardianship status to be determined; Court date for guardianship postponed to May 28 2018. Pt. seen, examined, and discussed with attending physician Dr. Iraj Morin DO PGY1 Internal Medicine Casting And Curing Operator - Pager [phone] <Sixto Galo - Last Filed: 05/19/18 07:05> Objective - Vital Signs/Intake and Output Vital Signs (last 24 hours): Temp Pulse Resp BP Pulse Ox 97.5 F L 86 19 96/61 L 95 05/18/18 17:12 05/18/18 17:12 05/18/18 17:12 05/18/18 17:12 05/18/18 17:12 Intake and Output: 05/19/18 05/19/18 06:59 18:59 Intake Total 1620 Balance 1620 - Medications Medications: Current Medications Amlodipine Besylate (Norvasc) 10 mg PO DAILY [facility] Last Admin: 05/18/18 12:20 Dose: 10 mg Aspirin (Ecotrin) 81 mg PO DAILY [facility] Last Admin: 05/18/18 12:19 Dose: 81 mg Atorvastatin Calcium (Lipitor) 20 mg PO DIN [facility] Last Admin: 05/18/18 17:35 Dose: 20 mg Citalopram Hydrobromide (Celexa) 10 mg PO DAILY [facility] Last Admin: 05/18/18 12:19 Dose: 10 mg Collagenase (Santyl) 0 gm TOP DAILY [facility] Last Admin: 05/17/18 14:01 Dose: 1 applic Insulin Human Regular (Humulin R Low) 0 units SC ACHS [facility] PRN Reason: Protocol Last Admin: 05/18/18 22:14 Dose: Not Given Lisinopril (Zestril) 10 mg PO DAILY [facility] Last Admin: 05/18/18 12:21 Dose: 10 mg Metformin HCl (Glucophage) 500 mg PO BID [facility] Last Admin: 05/18/18 17:36 Dose: 500 mg Multivitamins/Minerals (Therapeutic-M Tab) 1 tab PO 0800 [facility] Last Admin: 05/18/18 12:21 Dose: 1 tab Polyethylene Glycol (Miralax) 17 gm PO BID [facility] Last Admin: 05/18/18 17:36 Dose: 17 gm Thiamine HCl (Vitamin B1 Tab) 100 mg PO DAILY [facility] Last Admin: 05/18/18 12:21 Dose: 100 mg - Labs Labs: 05/19/18 06:00 05/19/18 06:00 PT 12.5 SECONDS (9.4-12.5) 12/09/17 10:00 INR 1.09 (0.93-1.08) H 12/09/17 10:00 APTT 28.3 Seconds (25.1-36.5) 11/30/17 05:30 Attending/Attestation - Attestation I have personally seen and examined this patient.: Yes I have fully participated in the care of the patient.: Yes I have reviewed all pertinent clinical information, including history, physical exam and plan: Yes Notes (Text): 05/18/18 57 year old male who was admitted with altered mental status. He was found to have bacteremia, cellulitis and pneumonia for which he has completed antibiotics. He also had CVA. He is on aspirin and statin. His mental status is at his baseline. Podiatry is following for foot ulceration. He had leukocytosis yesterday which has improved today noted. He is stable and pending placement. Pending court date early this month. Sixto Galo MD Hospitalist.
[2018-05-18 18:42] LABS: URINE BILIRUBIN NEGATIVE (NEGATIVE); URINE BLOOD NEGATIVE (NEGATIVE); URINE GLUCOSE (UA) NEGATIVE (NEGATIVE); URINE LEUKOCYTE ESTERASE NEGATIVE Leu/uL (NEGATIVE); URINE PROTEIN NEGATIVE mg/dL (<30 mg/dL); URINE UROBILINOGEN 0.2 E.U./dL (<1 E.U./dL)
[2018-05-18 18:44] LABS: URINE APPEARANCE CLEAR (CLEAR); URINE COLOR YELLOW (YELLOW)
[2018-05-19 06:25] LABS: BASO # 0.01 K/mm3 (0.0-2.0); BASO % 0.1 % (0.0-3.0); EOS # 0.1 (0.0-0.7); EOS % 1.2 % (1.5-5.0); GRAN # 7.14 (1.4-6.5); HEMOGLOBIN 10.2 g/dL (14.0-18.0); LYMPH # 2.2 (1.2-3.4); LYMPH % 19.7 % (22.0-35.0); MEAN CELL VOLUME 77.1 fl (80.0-105.0); MEAN CORPUSCULAR HEMOGLOBIN 24.8 pg (25.0-35.0); MEAN CORPUSCULAR HGB CONC 32.2 g/dl (31.0-37.0); MEAN PLATELET VOLUME 9.1 fl (7.0-11.0); MONO # 1.5 (0.1-0.6); RBC 4.11 10^6/uL (3.5-6.1)
[2018-05-19 06:57] LABS: BLOOD UREA NITROGEN 19 mg/dL (7-21); CALCIUM 9.1 mg/dL (8.4-10.5); GFR NON-AFRICAN AMERICAN > 60
--- NOTE | 2018-05-19 08:12 | CP.PCM.PN ---
<Mariano Morin - Last Filed: 05/19/18 18:55> Subjective - Date & Time of Evaluation Date of Evaluation: 05/19/18 Time of Evaluation: 08:12 - Subjective Subjective: Mariano Morin DO PGY1 Internal Med Dining Car Waiter/Waitress Pt. seen and evaluated this AM at bedside. No issues reported by nursing overnight. Pt. voicing no complaints at time of evaluation. Nursing reported BM last night with soft stools. Pt. appears to be at mental baseline at this time AAOx1. Pt refuses to get out of bed into chair. 12 system ROS is otherwise negative at this time. Objective - Vital Signs/Intake and Output Vital Signs (last 24 hours): Temp Pulse Resp BP Pulse Ox 97.5 F L 86 19 96/61 L 95 05/18/18 17:12 05/18/18 17:12 05/18/18 17:12 05/18/18 17:12 05/18/18 17:12 Intake and Output: 05/19/18 05/19/18 06:59 18:59 Intake Total 1620 Balance 1620 - Medications Medications: Current Medications Amlodipine Besylate (Norvasc) 10 mg PO DAILY [facility] Last Admin: 05/18/18 12:20 Dose: 10 mg Aspirin (Ecotrin) 81 mg PO DAILY [facility] Last Admin: 05/18/18 12:19 Dose: 81 mg Atorvastatin Calcium (Lipitor) 20 mg PO DIN [facility] Last Admin: 05/18/18 17:35 Dose: 20 mg Citalopram Hydrobromide (Celexa) 10 mg PO DAILY [facility] Last Admin: 05/18/18 12:19 Dose: 10 mg Collagenase (Santyl) 0 gm TOP DAILY [facility] Last Admin: 05/17/18 14:01 Dose: 1 applic Insulin Human Regular (Humulin R Low) 0 units SC [facility] PRN Reason: Protocol Last Admin: 05/18/18 22:14 Dose: Not Given Lisinopril (Zestril) 10 mg PO DAILY [facility] Last Admin: 05/18/18 12:21 Dose: 10 mg Metformin HCl (Glucophage) 500 mg PO BID [facility] Last Admin: 05/18/18 17:36 Dose: 500 mg Multivitamins/Minerals (Therapeutic-M Tab) 1 tab PO 0800 [facility] Last Admin: 05/18/18 12:21 Dose: 1 tab Thiamine HCl (Vitamin B1 Tab) 100 mg PO DAILY [facility] Last Admin: 05/18/18 12:21 Dose: 100 mg - Labs Labs: 05/19/18 06:00 05/19/18 06:00 PT 12.5 SECONDS (9.4-12.5) 12/09/17 10:00 INR 1.09 (0.93-1.08) H 12/09/17 10:00 APTT 28.3 Seconds (25.1-36.5) 11/30/17 05:30 Physical Exam - Constitutional Appears: Non-toxic, No Acute Distress, Awake at baseline - Head Exam Head Exam: ATRAUMATIC, NORMAL INSPECTION, NORMOCEPHALIC - Eye Exam Eye Exam: EOMI, Normal appearance, PERRL - ENT Exam ENT Exam: Mucous Membranes Moist, Normal Oropharynx - Neck Exam Neck Exam: Full ROM, Normal Inspection - Respiratory Exam Respiratory Exam: Clear to Ausculation Bilateral, NORMAL BREATHING PATTERN, no rales, wheezes or rhonchi - Cardiovascular Exam Cardiovascular Exam: REGULAR RHYTHM, +S1, +S2 - GI/Abdominal Exam GI & Abdominal Exam: Soft, Normal Bowel Sounds - Extremities Exam Extremities Exam: Normal Capillary Refill, Normal Inspection Additional comments: R foot bandaged; dressing is clean dry and intact; - Back Exam Back Exam: NORMAL INSPECTION - Neurological Exam Neurological Exam: Alert, Awake Additional comments: Oriented x2 - Psychiatric Exam Psychiatric exam: Flat Affect, Indifferent to questions this AM; short one word responses. - Skin Skin Exam: Dry, Intact, Warm Assessment and Plan - Assessment and Plan (Free Text) Assessment: Assessment: 57 year old male unknown PMHx admitted on 11/29/17 for AMS, right hip cellulitis , multifocal pneumonia, influenza A, strep viridians bacteremia with findings of stroke on MRI - acute vs. 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 Patient was treated for bacteremia with IV abx. Guardianship establishment pending court date, which was rescheduled for May 28. Plan: Leukocytosis WBC elevated 2 days ago. Patient srinivasan cultured Blood cx negative x2 after 24H Abd U/S - 7mm common bile duct dilatation and gallstones; Hepatic lesions measuring up to 4.9cm and 3.8 cm; compared to prev abd U/S from 12/05 lesions measured 4.1cm and 3.1cm No RUQ tenderness appreciated on exam; ID following, appreciate reccs Altered mental status At baseline this AM Cont. delirium precautions PT -patient refusing to participate Cont ASA 81 QD / LIPITOR 20 QD Dorsal Right Foot Ulcer Bandaged. Non purulent. Podiatry recommendations appreciated Wound care following On [facility] No antibiotics warranted at this time per ID Coag negative Staphylococcus bacteremia - resolved Last bld clx negative 12/04/17 with completion of 6 week course of antibiotics Monitor WBC, ESR, CRP weekly Echocardiogram unable to rule out vegetations, family is unavailable for consent for TAHIR Colonic mass CT Abd/Pelvis showing colonic mass and hepatic lesions GI consulted: follow recs Flex sig/colonoscopy refused by patient Family unable to be contacted for consent Diabetes mellitus type 2 Cont RISS low Cont Metformin 500mg BID Cont accuchecks Carb consistent diet HTN BP Stable, continue to monitor Cont Lisinopril 10 QD Cont Amlodipine 10 mg PO QD Affective disorder Cont Celexa 10mg PO Daily Constipation Colace 100mg BID Miralax 17gm BID Discontinued Lactulose Hx ETOH Abuse Cont Thiamine Cont Folic Acid Cont Multivitamin DVT Prophylaxis: SCDs Dispo: Patient continues to display a lack of decision making capacity: Guardianship status to be determined; Court date for guardianship postponed to May 28 2018. Pt. seen, examined, and discussed with attending physician Dr. Iraj Morin DO PGY1 Internal Medicine Dining Car Waiter/Waitress - Pager [phone] <Sixto Galo - Last Filed: 05/20/18 06:32> Objective - Vital Signs/Intake and Output Vital Signs (last 24 hours): Temp Pulse Resp BP Pulse Ox 98.3 F 92 H 19 102/63 94 L 05/19/18 18:48 05/19/18 18:48 05/19/18 18:48 05/19/18 18:48 05/19/18 18:48 - Medications Medications: Current Medications Amlodipine Besylate (Norvasc) 10 mg PO DAILY [facility] Last Admin: 05/19/18 10:49 Dose: 10 mg Aspirin (Ecotrin) 81 mg PO DAILY [facility] Last Admin: 05/19/18 10:49 Dose: 81 mg Atorvastatin Calcium (Lipitor) 20 mg PO DIN [facility] Last Admin: 05/19/18 18:08 Dose: 20 mg Citalopram Hydrobromide (Celexa) 10 mg PO DAILY [facility] Last Admin: 05/19/18 10:49 Dose: 10 mg Insulin Human Regular (Humulin R Low) 0 units SC ACHS [facility] PRN Reason: Protocol Last Admin: 05/19/18 22:45 Dose: 2 units Lisinopril (Zestril) 10 mg PO DAILY [facility] Last Admin: 05/19/18 10:50 Dose: 10 mg Metformin HCl (Glucophage) 500 mg PO BID [facility] Last Admin: 05/19/18 18:08 Dose: 500 mg Multivitamins/Minerals (Therapeutic-M Tab) 1 tab PO 0800 [facility] Last Admin: 05/19/18 08:41 Dose: 1 tab Thiamine HCl (Vitamin B1 Tab) 100 mg PO DAILY [facility] Last Admin: 05/19/18 10:50 Dose: 100 mg - Labs Labs: 05/19/18 06:00 05/19/18 06:00 PT 12.5 SECONDS (9.4-12.5) 12/09/17 10:00 INR 1.09 (0.93-1.08) H 12/09/17 10:00 APTT 28.3 Seconds (25.1-36.5) 11/30/17 05:30 Attending/Attestation - Attestation I have personally seen and examined this patient.: Yes I have fully participated in the care of the patient.: Yes I have reviewed all pertinent clinical information, including history, physical exam and plan: Yes Notes (Text): 05/19/18 57 year old male who was admitted with altered mental status. He was found to have bacteremia, cellulitis and pneumonia for which he has completed antibiotics. He also had CVA. He is on aspirin and statin. His mental status is at his baseline. Podiatry is following for foot ulceration. He had slight leukocytosis earlier this week which resolved. He is stable and pending placement. Pending court date early this month. Sixto Galo MD Hospitalist.
[2018-05-19] MEDS: Insulin Reg-LOW-Coverage SC SCH ×4 (08:28→22:45)
[2018-05-19] MEDS: Multivitamin With Minerals Tab PO SCH (08:41)
--- NOTE | 2018-05-19 10:23 | PN ---
Copied To: Daniel Torres MD Attending MD: Daniel Torres MD DATE: 05/19/2018 SUBJECTIVE: The patient is in bed, in no acute distress, nontoxic. PHYSICAL EXAMINATION: VITAL SIGNS: Temperature is 98, blood pressure is 114/70, respiratory rate of 16. HEENT: Examination of HEENT is unremarkable. NECK: Supple. LUNGS: Have decreased breath sounds. HEART: Normal S1, S2. ABDOMEN: Soft. LABORATORY DATA: Laboratory examination reveals a white count of 11,000, hemoglobin of 10, BUN of 19, creatinine of 0.6, procalcitonin of 0.41. The patient's abdominal ultrasound is reviewed. There are gallstones and the common bile duct measures 7 mm. There are no stones. There is no dilatation. Nonspecific hepatic masses are noted. Review of orders reveals the patient to be off of antibiotics and the patient's white count is back to normal today at 11,000. He does have persistently elevated alk phos and a normal procalcitonin. Dr. Galo's progress note from yesterday is reviewed. The patient did have a CAT scan of the abdomen and pelvis in November, the liver was described as fatty infiltration. In November, the patient also had an ultrasound of the abdomen. Liver lesions were seen in the right hepatic lobe. ASSESSMENT AND PLAN: This is a 57-year-old male, admitted with sepsis with Streptococcus viridans, coagulase-negative Staphylococcus bacteremia, right gluteal and back cellulitis. Currently, off of antibiotics. The patient developed systemic inflammatory response syndrome. Repeat pancultures are pending. Procalcitonin is normal. Does have an elevated alk phos with a questionable liver mass on ultrasound. Currently off of antibiotics. Consider repeating the CAT scan of the abdomen and having GI evaluation of the liver lesions. We will follow with you. Off of antibiotics. Daniel Torres MD
[2018-05-19] MEDS: Collagenase 250 Units/gm Ointment(30 gm) TOP SCH (10:50)
--- NOTE | 2018-05-19 11:41 | CP.PCM.PN ---
<Car Nicholson - Last Filed: 05/19/18 11:38> Subjective - Date & Time of Evaluation Date of Evaluation: 05/19/18 Time of Evaluation: 11:38 - Subjective Subjective: Podiatry progress note for Dr. Oakley 57M seen at bedside for right anterior ankle ulceration and left ankle abrasion. Patient is AAO x 3 and NAD at time of visit. Per nursing, no acute overnight events. Patient denies any pain to his right anterior ankle at this time. Denies any further pedal complaints at this time. Denies any recent N/V/F/ C/CP/SOB/D/posterior calf pain when squeezed. Objective - Vital Signs/Intake and Output Vital Signs (last 24 hours): Temp Pulse Resp BP Pulse Ox 98.6 F 97 H 20 112/72 95 05/19/18 08:27 05/19/18 10:50 05/19/18 08:27 05/19/18 10:50 05/19/18 08:27 Intake and Output: 05/19/18 05/19/18 06:59 18:59 Intake Total 1620 Balance 1620 - Medications Medications: Current Medications Amlodipine Besylate (Norvasc) 10 mg PO DAILY [facility] Last Admin: 05/19/18 10:49 Dose: 10 mg Aspirin (Ecotrin) 81 mg PO DAILY [facility] Last Admin: 05/19/18 10:49 Dose: 81 mg Atorvastatin Calcium (Lipitor) 20 mg PO DIN [facility] Last Admin: 05/18/18 17:35 Dose: 20 mg Citalopram Hydrobromide (Celexa) 10 mg PO DAILY [facility] Last Admin: 05/19/18 10:49 Dose: 10 mg Insulin Human Regular (Humulin R Low) 0 units [place] [facility] PRN Reason: Protocol Last Admin: 05/19/18 08:28 Dose: Not Given Lisinopril (Zestril) 10 mg PO DAILY [facility] Last Admin: 05/19/18 10:50 Dose: 10 mg Metformin HCl (Glucophage) 500 mg PO BID [facility] Last Admin: 05/19/18 10:49 Dose: 500 mg Multivitamins/Minerals (Therapeutic-M Tab) 1 tab PO 0800 [facility] Last Admin: 05/19/18 08:41 Dose: 1 tab Thiamine HCl (Vitamin B1 Tab) 100 mg PO DAILY [facility] Last Admin: 05/19/18 10:50 Dose: 100 mg - Labs Labs: 05/19/18 06:00 05/19/18 06:00 PT 12.5 SECONDS (9.4-12.5) 12/09/17 10:00 INR 1.09 (0.93-1.08) H 12/09/17 10:00 APTT 28.3 Seconds (25.1-36.5) 11/30/17 05:30 - Constitutional Appears: Well, Non-toxic, No Acute Distress - Extremities Exam Additional comments: B/L Lower extremity exam: VASC: DP and PT faintly palpable b/l, CFT delayed > 3 seconds x 10 digits, temperature gradient cool to cool, no edema noted to the lower extremity NEURO: Epicritic and protective sensation grossly intact b/l DERM: Right: ulceration noted to the anterior aspect of right ankle at the level of the ankle joint measuring approximately 2 x 2 cm with necrotic scab sloughing off with wound base being mainly fibrotic, improving. No streaking, no drainage , no tunneling, no abscess, no odor or drainage, no fluctuance noted, no clinical signs of infection. Abrasion noted to left anterior ankle. No clinical signs of infection or break in skin appreciated ORTHO: no pain with palpation to the entire lower extremity, no calf pain or tenderness appreciated, unable to assess MMT secondary to patient's cooperation - Neurological Exam Neurological Exam: Alert, Awake, Oriented x3 - Psychiatric Exam Psychiatric exam: Normal Affect, Normal Mood Assessment and Plan - Assessment and Plan (Free Text) Assessment: 57M seen at bedside for right anterior ankle ulceration and left ankle abrasion Plan: Patient seen and evaluated with attending Dr. Oakley Afebrile, absent leukocytosis Right anterior ankle dressed with Santyl, optifoam, Kirlix Left anterior ankle dressed with optifoam No plan for surgical intervention at this time Podiatry will continue to follow while patient in house <Ivania Oakley - Last Filed: 05/25/18 08:00> Objective - Vital Signs/Intake and Output Vital Signs (last 24 hours): Temp Pulse Resp BP Pulse Ox 97.3 F L 70 18 102/66 95 05/25/18 07:47 05/25/18 07:47 05/25/18 07:47 05/25/18 07:47 05/25/18 07:47 Intake and Output: 05/25/18 05/25/18 06:59 18:59 Intake Total 180 Balance 180 - Medications Medications: Current Medications Amlodipine Besylate (Norvasc) 10 mg PO DAILY [facility] Last Admin: 05/24/18 11:28 Dose: 10 mg Aspirin (Ecotrin) 81 mg PO DAILY [facility] Last Admin: 05/24/18 11:28 Dose: 81 mg Atorvastatin Calcium (Lipitor) 20 mg PO DIN [facility] Last Admin: 05/24/18 18:15 Dose: 20 mg Insulin Human Regular (Humulin R Low) 0 units SC [facility] PRN Reason: Protocol Last Admin: 05/24/18 22:39 Dose: Not Given Lisinopril (Zestril) 10 mg PO DAILY [facility] Last Admin: 05/24/18 11:30 Dose: 10 mg Metformin HCl (Glucophage) 500 mg PO BID [facility] Last Admin: 05/24/18 18:15 Dose: 500 mg Multivitamins/Minerals (Therapeutic-M Tab) 1 tab PO 0800 [facility] Last Admin: 05/24/18 11:29 Dose: 1 tab Thiamine HCl (Vitamin B1 Tab) 100 mg PO DAILY [facility] Last Admin: 05/23/18 09:34 Dose: 100 mg - Labs Labs: 05/25/18 06:05 05/25/18 06:05 PT 12.5 SECONDS (9.4-12.5) 12/09/17 10:00 INR 1.09 (0.93-1.08) H 12/09/17 10:00 APTT 28.3 Seconds (25.1-36.5) 11/30/17 05:30 Attending/Attestation - Attestation I have personally seen and examined this patient.: Yes I have fully participated in the care of the patient.: Yes I have reviewed all pertinent clinical information, including history, physical exam and plan: Yes
[2018-05-20] MEDS: Insulin Reg-LOW-Coverage SC SCH ×4 (07:53→22:55)
--- NOTE | 2018-05-20 09:10 | CP.PCM.PN ---
<Mariano Morin - Last Filed: 05/20/18 15:59> Subjective - Date & Time of Evaluation Date of Evaluation: 05/20/18 Time of Evaluation: 09:09 - Subjective Subjective: Mariano Morin DO PGY1 Internal Medicine Machine Group Leader Seen this AM resting comfortably at bedside no issues overnight; nursing reported bowel movements last night. Patient voicing no active complaints at this time. Patient is not agitated, appears to be at baseline. 12 system ROS is unremarkable. Objective - Vital Signs/Intake and Output Vital Signs (last 24 hours): Temp Pulse Resp BP Pulse Ox 97.8 F 91 H 20 119/80 95 05/20/18 07:36 05/20/18 07:36 05/20/18 07:36 05/20/18 07:36 05/20/18 07:36 Intake and Output: 05/20/18 05/20/18 06:59 18:59 Intake Total 1720 Balance 1720 - Medications Medications: Current Medications Amlodipine Besylate (Norvasc) 10 mg PO DAILY [facility] Last Admin: 05/19/18 10:49 Dose: 10 mg Aspirin (Ecotrin) 81 mg PO DAILY [facility] Last Admin: 05/19/18 10:49 Dose: 81 mg Atorvastatin Calcium (Lipitor) 20 mg PO DIN [facility] Last Admin: 05/19/18 18:08 Dose: 20 mg Citalopram Hydrobromide (Celexa) 10 mg PO DAILY [facility] Last Admin: 05/19/18 10:49 Dose: 10 mg Insulin Human Regular (Humulin R Low) 0 units SC [facility] PRN Reason: Protocol Last Admin: 05/20/18 07:53 Dose: Not Given Lisinopril (Zestril) 10 mg PO DAILY [facility] Last Admin: 05/19/18 10:50 Dose: 10 mg Metformin HCl (Glucophage) 500 mg PO BID [facility] Last Admin: 05/19/18 18:08 Dose: 500 mg Multivitamins/Minerals (Therapeutic-M Tab) 1 tab PO 0800 [facility] Last Admin: 05/19/18 08:41 Dose: 1 tab Thiamine HCl (Vitamin B1 Tab) 100 mg PO DAILY [facility] Last Admin: 05/19/18 10:50 Dose: 100 mg - Labs Labs: 05/19/18 06:00 05/19/18 06:00 PT 12.5 SECONDS (9.4-12.5) 02/22/18 10:00 INR 1.09 (0.93-1.08) H 12/09/17 10:00 APTT 28.3 Seconds (25.1-36.5) 11/30/17 05:30 Physical Exam - Constitutional Appears: Non-toxic, No Acute Distress, Awake at baseline - Head Exam Head Exam: ATRAUMATIC, NORMAL INSPECTION, NORMOCEPHALIC - Eye Exam Eye Exam: EOMI, Normal appearance, PERRL - ENT Exam ENT Exam: Mucous Membranes Moist, Normal Oropharynx - Neck Exam Neck Exam: Full ROM, Normal Inspection - Respiratory Exam Respiratory Exam: Clear to Ausculation Bilateral, NORMAL BREATHING PATTERN, no rales, wheezes or rhonchi - Cardiovascular Exam Cardiovascular Exam: REGULAR RHYTHM, +S1, +S2 - GI/Abdominal Exam GI & Abdominal Exam: Soft, Normal Bowel Sounds - Extremities Exam Extremities Exam: Normal Capillary Refill, Normal Inspection Additional comments: R foot bandaged; dressing is clean dry and intact; L foot opti foam bandage applied to L foot. CDI. - Back Exam Back Exam: NORMAL INSPECTION - Neurological Exam Neurological Exam: Alert, Awake Additional comments: Oriented x2 - Psychiatric Exam Psychiatric exam: Flat Affect, Indifferent to questions this AM; short one word responses. - Skin Skin Exam: Dry, Intact, Warm Assessment and Plan - Assessment and Plan (Free Text) Assessment: 57 year old male unknown PMHx admitted on 11/29/17 for AMS, right hip cellulitis , multifocal pneumonia, influenza A, strep viridians bacteremia with findings of stroke on MRI - acute vs. 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 Patient was treated for bacteremia with IV abx. Guardianship establishment pending court date, which was rescheduled for May 28. Plan: Altered mental status At baseline this AM Cont. delirium precautions PT -patient refusing to participate Cont ASA 81 QD / LIPITOR 20 QD Dorsal Right Foot Ulcer Bandaged. Non purulent. Podiatry recommendations appreciated Wound care following [facility] No antibiotics warranted at this time per ID Coag negative Staphylococcus bacteremia - resolved Last bld clx negative 12/04/17 with completion of 6 week course of antibiotics Monitor WBC, ESR, CRP weekly Echocardiogram unable to rule out vegetations, family is unavailable for consent for TAHIR Colonic mass CT Abd/Pelvis showing colonic mass and hepatic lesions GI consulted: follow recs Flex sig/colonoscopy refused by patient Family unable to be contacted for consent Diabetes mellitus type 2 Cont RISS low Cont Metformin 500mg BID Cont accuchecks Carb consistent diet HTN BP Stable, continue to monitor Cont Lisinopril 10 QD Cont Amlodipine 10 mg PO QD Leukocytosis - RESOLVED WBC elevated 05/17 Patient srinivasan cultured Blood cx negative x2 after 48H Urine cx w/ multiple species ML contaminated Abd U/S - 7mm common bile duct dilatation and gallstones; Hepatic lesions measuring up to 4.9cm and 3.8 cm; compared to prev abd U/S from 12/05 lesions measured 4.1cm and 3.1cm No RUQ tenderness appreciated on exam; ID following, appreciate reccs Affective disorder Cont Celexa 10mg PO Daily Constipation Colace 100mg BID Miralax 17gm BID Discontinued Lactulose Hx ETOH Abuse Cont Thiamine Cont Folic Acid Cont Multivitamin DVT Prophylaxis: SCDs Dispo: Patient continues to display a lack of decision making capacity: Guardianship status to be determined; Court date for guardianship postponed to May 28 2018. Pt. seen, examined, and discussed with attending physician Dr. Iraj Morin DO PGY1 Internal Medicine Machine Group Leader - Pager [phone] <Sixto Galo - Last Filed: 05/20/18 17:30> Objective - Vital Signs/Intake and Output Vital Signs (last 24 hours): Temp Pulse Resp BP Pulse Ox 97.8 F 91 H 20 119/80 95 05/20/18 07:36 05/20/18 07:36 05/20/18 07:36 05/20/18 10:45 05/20/18 07:36 Intake and Output: 05/20/18 05/20/18 06:59 18:59 Intake Total 1720 Balance 1720 - Medications Medications: Current Medications Amlodipine Besylate (Norvasc) 10 mg PO DAILY [facility] Last Admin: 05/20/18 10:45 Dose: 10 mg Aspirin (Ecotrin) 81 mg PO DAILY [facility] Last Admin: 05/20/18 10:44 Dose: 81 mg Atorvastatin Calcium (Lipitor) 20 mg PO DIN [facility] Last Admin: 05/19/18 18:08 Dose: 20 mg Citalopram Hydrobromide (Celexa) 10 mg PO DAILY [facility] Last Admin: 05/20/18 10:44 Dose: 10 mg Insulin Human Regular (Humulin R Low) 0 units SC ACHS [facility] PRN Reason: Protocol Last Admin: 05/20/18 07:53 Dose: Not Given Lisinopril (Zestril) 10 mg PO DAILY [facility] Last Admin: 05/20/18 10:45 Dose: 10 mg Metformin HCl (Glucophage) 500 mg PO BID [facility] Last Admin: 05/20/18 10:45 Dose: 500 mg Multivitamins/Minerals (Therapeutic-M Tab) 1 tab PO 0800 [facility] Last Admin: 05/20/18 10:47 Dose: 1 tab Thiamine HCl (Vitamin B1 Tab) 100 mg PO DAILY [facility] Last Admin: 05/20/18 10:47 Dose: 100 mg - Labs Labs: 05/19/18 06:00 05/19/18 06:00 PT 12.5 SECONDS (9.4-12.5) 12/09/17 10:00 INR 1.09 (0.93-1.08) H 12/09/17 10:00 APTT 28.3 Seconds (25.1-36.5) 11/30/17 05:30 Attending/Attestation - Attestation I have personally seen and examined this patient.: Yes I have fully participated in the care of the patient.: Yes I have reviewed all pertinent clinical information, including history, physical exam and plan: Yes Notes (Text): 05/20/18 17:29 57 year old male who was admitted with altered mental status. He was found to have bacteremia, cellulitis and pneumonia for which he has completed antibiotics. He also had CVA. He is on aspirin and statin. His mental status is at his baseline. Podiatry is following for foot ulceration. He is comfortable this morning without any new complaints. He is pending placement; pending court date early this month. Sixto Galo MD Hospitalist.
[2018-05-20] MEDS: Multivitamin With Minerals Tab PO SCH (10:47)
--- NOTE | 2018-05-20 15:12 | CP.PCM.PN ---
Subjective - Date & Time of Evaluation Date of Evaluation: 05/20/18 Time of Evaluation: 12:45 - Subjective Subjective: Comfortable in bed, no fevers, not in distress. Objective - Vital Signs/Intake and Output Vital Signs (last 24 hours): Temp Pulse Resp BP Pulse Ox 97.8 F 91 H 20 119/80 95 05/20/18 07:36 05/20/18 07:36 05/20/18 07:36 05/20/18 10:45 05/20/18 07:36 Intake and Output: 05/20/18 05/20/18 06:59 18:59 Intake Total 1720 Balance 1720 - Medications Medications: Current Medications Amlodipine Besylate (Norvasc) 10 mg PO DAILY [facility] Last Admin: 05/20/18 10:45 Dose: 10 mg Aspirin (Ecotrin) 81 mg PO DAILY [facility] Last Admin: 05/20/18 10:44 Dose: 81 mg Atorvastatin Calcium (Lipitor) 20 mg PO DIN [facility] Last Admin: 05/19/18 18:08 Dose: 20 mg Citalopram Hydrobromide (Celexa) 10 mg PO DAILY [facility] Last Admin: 05/20/18 10:44 Dose: 10 mg Insulin Human Regular (Humulin R Low) 0 units SC [facility] PRN Reason: Protocol Last Admin: 05/20/18 07:53 Dose: Not Given Lisinopril (Zestril) 10 mg PO DAILY [facility] Last Admin: 05/20/18 10:45 Dose: 10 mg Metformin HCl (Glucophage) 500 mg PO BID [facility] Last Admin: 05/20/18 10:45 Dose: 500 mg Multivitamins/Minerals (Therapeutic-M Tab) 1 tab PO 0800 [facility] Last Admin: 05/20/18 10:47 Dose: 1 tab Thiamine HCl (Vitamin B1 Tab) 100 mg PO DAILY [facility] Last Admin: 05/20/18 10:47 Dose: 100 mg - Labs Labs: 05/19/18 06:00 05/19/18 06:00 PT 12.5 SECONDS (9.4-12.5) 12/09/17 10:00 INR 1.09 (0.93-1.08) H 12/09/17 10:00 APTT 28.3 Seconds (25.1-36.5) 11/30/17 05:30 - Constitutional Appears: Chronically Ill - Head Exam Head Exam: NORMAL INSPECTION - Respiratory Exam Respiratory Exam: Decreased Breath Sounds - Cardiovascular Exam Cardiovascular Exam: +S1, +S2 - GI/Abdominal Exam GI & Abdominal Exam: Soft. absent: Tenderness Assessment and Plan - Assessment and Plan (Free Text) Plan: Assessment new onset systemic inflammatory response syndrome, with no evidence of sepsis or infection, resolved S/P sepsis due to strep viridans and CoNS bacteremia from right gluteal and back cellulitis S/P multifocal HCAP on top of Influenza A infection S/P Sammie infection of sacral area as well peripheral vascular disease Plan continue to monitor clinically off antibiotics since he is at risk for nosocomial infections - repeat blood cx are negative, PCT is normal urine culture shows contamination - follow up further plans for the liver masses noted on ultrasound abdomen
[2018-05-21] MEDS: Multivitamin With Minerals Tab PO SCH (08:49)
[2018-05-21] MEDS: Insulin Reg-LOW-Coverage SC SCH ×4 (08:50→22:00)
--- NOTE | 2018-05-21 09:18 | PN ---
Copied To: Daniel Torres MD Attending MD: Daniel Torres MD DATE: 05/21/2018 LOCATION: The patient seen earlier today in room 363, bed 1. SUBJECTIVE: No fevers and chills. PHYSICAL EXAMINATION VITAL SIGNS: Temperature is 98, blood pressure is 117/70, respiratory rate of 18. HEENT: Unremarkable. NECK: Supple. LUNGS: Have decreased breath sounds. HEART: Normal S1, S2. ABDOMEN: Soft, nontender. LABORATORY DATA: Laboratory examination reveals a white count of 11,000, hemoglobin of 10, platelets of 389 and creatinine is noted and urinalysis is noted. Review of orders reveals the patient is off of antibiotics. ASSESSMENT AND PLAN: A 57-year-old male who was admitted with sepsis with Streptococcus viridans, coagulase-negative staph, right gluteal and back cellulitis, off of antibiotics. The patient develops systemic inflammatory response syndrome and negative procalcitonin with questionable liver metastases on ultrasound. The patient with questionable colon cancer with liver metastases as per my discussion with Dr. Galo. Dr. Galo's note from yesterday is reviewed. Colon mass with liver metastases. Daniel Torres MD
--- NOTE | 2018-05-21 10:16 | CP.PCM.PN ---
<Kei Johnson - Last Filed: 05/21/18 10:13> Subjective - Date & Time of Evaluation Date of Evaluation: 05/21/18 Time of Evaluation: 10:13 - Subjective Subjective: Podiatry progress note for Dr. Susan CarlosM seen at bedside for right anterior ankle ulceration and left ankle abrasion. Patient is in NAD. Reports that he is doing okay. Per nursing, no acute overnight events. Patient denies any pain to his right anterior ankle at this time. Denies any further pedal complaints at this time. Denies any recent N /V/F/C/CP/SOB/D/posterior calf pain when squeezed. Objective - Vital Signs/Intake and Output Vital Signs (last 24 hours): Temp Pulse Resp BP Pulse Ox 97.6 F 85 18 118/84 94 L 05/21/18 06:00 05/21/18 06:00 05/21/18 06:00 05/21/18 06:00 05/21/18 06:00 Intake and Output: 05/21/18 05/21/18 06:59 18:59 Intake Total 840 150 Balance 840 150 - Medications Medications: Current Medications Amlodipine Besylate (Norvasc) 10 mg PO DAILY [facility] Last Admin: 05/20/18 10:45 Dose: 10 mg Aspirin (Ecotrin) 81 mg PO DAILY [facility] Last Admin: 05/20/18 10:44 Dose: 81 mg Atorvastatin Calcium (Lipitor) 20 mg PO DIN [facility] Last Admin: 05/20/18 17:35 Dose: 20 mg Citalopram Hydrobromide (Celexa) 10 mg PO DAILY [facility] Last Admin: 05/20/18 10:44 Dose: 10 mg Insulin Human Regular (Humulin R Low) 0 units SC [facility] PRN Reason: Protocol Last Admin: 05/21/18 08:50 Dose: Not Given Lisinopril (Zestril) 10 mg PO DAILY [facility] Last Admin: 05/20/18 10:45 Dose: 10 mg Metformin HCl (Glucophage) 500 mg PO BID [facility] Last Admin: 05/20/18 17:35 Dose: 500 mg Multivitamins/Minerals (Therapeutic-M Tab) 1 tab PO 0800 [facility] Last Admin: 05/21/18 08:49 Dose: 1 tab Thiamine HCl (Vitamin B1 Tab) 100 mg PO DAILY [facility] Last Admin: 05/20/18 10:47 Dose: 100 mg - Labs Labs: 05/19/18 06:00 05/19/18 06:00 PT 12.5 SECONDS (9.4-12.5) 12/09/17 10:00 INR 1.09 (0.93-1.08) H 12/09/17 10:00 APTT 28.3 Seconds (25.1-36.5) 11/30/17 05:30 - Constitutional Appears: Well, Non-toxic, No Acute Distress - Extremities Exam Extremities Exam: absent: Calf Tenderness Additional comments: B/L Lower extremity exam: VASC: DP and PT faintly palpable b/l, CFT delayed > 3 seconds x 10 digits, temperature gradient cool to cool, no edema noted to the lower extremity NEURO: Epicritic and protective sensation grossly intact b/l DERM: Right: ulceration noted to the anterior aspect of right ankle at the level of the ankle joint measuring approximately 2 x 2 cm with necrotic scab sloughing off with wound base being mainly fibrotic, improving. No streaking, no drainage , no tunneling, no abscess, no odor or drainage, no fluctuance noted, no clinical signs of infection. Abrasion noted to left anterior ankle. No clinical signs of infection or break in skin appreciated ORTHO: no pain with palpation to the entire lower extremity, no calf pain or tenderness appreciated, unable to assess MMT secondary to patient's cooperation - Neurological Exam Neurological Exam: Alert, Awake - Psychiatric Exam Psychiatric exam: Normal Affect, Normal Mood Assessment and Plan - Assessment and Plan (Free Text) Assessment: 57M seen at bedside for right anterior ankle ulceration and left ankle abrasion Plan: Patient seen and evaluated with attending Dr. Davis Afebrile, absent leukocytosis Right anterior ankle dressed with Santyl, optifoam, paper tape Left anterior ankle dressed with optifoam No plan for surgical intervention at this time Podiatry will continue to follow while patient in house <Raciel Davis - Last Filed: 05/24/18 10:30> Objective - Vital Signs/Intake and Output Vital Signs (last 24 hours): Temp Pulse Resp BP Pulse Ox 97.1 F L 85 20 110/71 98 05/24/18 08:16 05/24/18 08:16 05/24/18 08:16 05/24/18 08:16 05/24/18 08:16 Intake and Output: 05/24/18 05/24/18 06:59 18:59 Intake Total 120 Balance 120 - Medications Medications: Current Medications Amlodipine Besylate (Norvasc) 10 mg PO DAILY [facility] Last Admin: 05/23/18 09:32 Dose: 10 mg Aspirin (Ecotrin) 81 mg PO DAILY [facility] Last Admin: 05/23/18 09:32 Dose: 81 mg Atorvastatin Calcium (Lipitor) 20 mg PO DIN [facility] Last Admin: 05/23/18 18:29 Dose: 20 mg Insulin Human Regular (Humulin R Low) 0 units SC [facility] PRN Reason: Protocol Last Admin: 05/24/18 07:53 Dose: Not Given Lisinopril (Zestril) 10 mg PO DAILY [facility] Last Admin: 05/23/18 09:35 Dose: 10 mg Metformin HCl (Glucophage) 500 mg PO BID [facility] Last Admin: 05/23/18 18:29 Dose: 500 mg Multivitamins/Minerals (Therapeutic-M Tab) 1 tab PO 0800 [facility] Last Admin: 05/23/18 09:33 Dose: 1 tab Thiamine HCl (Vitamin B1 Tab) 100 mg PO DAILY [facility] Last Admin: 05/23/18 09:34 Dose: 100 mg - Labs Labs: 05/19/18 06:00 05/19/18 06:00 PT 12.5 SECONDS (9.4-12.5) 12/09/17 10:00 INR 1.09 (0.93-1.08) H 12/09/17 10:00 APTT 28.3 Seconds (25.1-36.5) 11/30/17 05:30 Attending/Attestation - Attestation I have personally seen and examined this patient.: Yes I have fully participated in the care of the patient.: Yes I have reviewed all pertinent clinical information, including history, physical exam and plan: Yes
--- NOTE | 2018-05-21 15:36 | CP.PCM.PN ---
<James Barroso - Last Filed: 05/21/18 15:34> Subjective - Date & Time of Evaluation Date of Evaluation: 05/21/18 Time of Evaluation: 13:00 - Subjective Subjective: PGY-[address] Galo No acute events overnight. Patient at his baseline in terms of behavior and neuro. He was seen by podiatry today - his right anterior ankle was dressed with Santyl, optifoam, paper tape and left anterior ankle was dressed with optifoam. Objective - Vital Signs/Intake and Output Vital Signs (last 24 hours): Temp Pulse Resp BP Pulse Ox 97.6 F 82 18 126/78 94 L 05/21/18 06:00 05/21/18 11:31 05/21/18 06:00 05/21/18 11:31 05/21/18 06:00 Intake and Output: 05/21/18 05/21/18 06:59 18:59 Intake Total 840 150 Balance 840 150 - Medications Medications: Current Medications Amlodipine Besylate (Norvasc) 10 mg PO DAILY [facility] Last Admin: 05/21/18 11:31 Dose: 10 mg Aspirin (Ecotrin) 81 mg PO DAILY [facility] Last Admin: 05/21/18 11:31 Dose: 81 mg Atorvastatin Calcium (Lipitor) 20 mg PO DIN [facility] Last Admin: 05/20/18 17:35 Dose: 20 mg Citalopram Hydrobromide (Celexa) 10 mg PO DAILY [facility] Last Admin: 05/21/18 11:32 Dose: 10 mg Insulin Human Regular (Humulin R Low) 0 units SC [facility] PRN Reason: Protocol Last Admin: 05/21/18 11:33 Dose: Not Given Lisinopril (Zestril) 10 mg PO DAILY [facility] Last Admin: 05/21/18 11:31 Dose: 10 mg Metformin HCl (Glucophage) 500 mg PO BID [facility] Last Admin: 05/21/18 11:32 Dose: 500 mg Multivitamins/Minerals (Therapeutic-M Tab) 1 tab PO 0800 [facility] Last Admin: 05/21/18 08:49 Dose: 1 tab Thiamine HCl (Vitamin B1 Tab) 100 mg PO DAILY [facility] Last Admin: 05/21/18 11:31 Dose: 100 mg - Labs Labs: 05/19/18 06:00 05/19/18 06:00 PT 12.5 SECONDS (9.4-12.5) 12/09/17 10:00 INR 1.09 (0.93-1.08) H 12/09/17 10:00 APTT 28.3 Seconds (25.1-36.5) 11/30/17 05:30 - Additional Findings Additional findings: - Constitutional Appears: Non-toxic, No Acute Distress, Awake at baseline - Head Exam Head Exam: ATRAUMATIC, NORMAL INSPECTION, NORMOCEPHALIC - Eye Exam Eye Exam: EOMI, Normal appearance, PERRL - ENT Exam ENT Exam: Mucous Membranes Moist, Normal Oropharynx - Neck Exam Neck Exam: Full ROM, Normal Inspection - Respiratory Exam Respiratory Exam: Clear to Ausculation Bilateral, NORMAL BREATHING PATTERN, no rales, wheezes or rhonchi - Cardiovascular Exam Cardiovascular Exam: REGULAR RHYTHM, +S1, +S2 - GI/Abdominal Exam GI & Abdominal Exam: Soft, Normal Bowel Sounds - Extremities Exam Extremities Exam: Normal Capillary Refill, Normal Inspection Additional comments: R foot bandaged; dressing is clean dry and intact; L foot opti foam bandage applied to L foot. CDI. - Back Exam Back Exam: NORMAL INSPECTION - Neurological Exam Neurological Exam: Alert, Awake Additional comments: Oriented x2 - Psychiatric Exam Psychiatric exam: Flat Affect, Indifferent to questions this AM; short one word responses. - Skin Skin Exam: Dry, Intact, Warm Assessment and Plan - Assessment and Plan (Free Text) Assessment: 57 year old male unknown PMHx admitted on 11/29/17 for AMS, right hip cellulitis , multifocal pneumonia, influenza A, strep viridians bacteremia with findings of stroke on MRI - acute vs. 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 Patient was treated for bacteremia with IV abx. Guardianship establishment pending court date, which was rescheduled for May 28. Plan: Altered mental status At baseline this AM Cont. delirium precautions PT -patient refusing to participate Cont ASA 81 QD / LIPITOR 20 QD Dorsal Right Foot Ulcer Bandaged. Non purulent. Podiatry recommendations appreciated Wound care following On [facility] [place] [facility] No antibiotics warranted at this time per ID Coag negative Staphylococcus bacteremia - resolved Last bld clx negative 12/04/17 with completion of 6 week course of antibiotics Monitor WBC, ESR, CRP weekly Echocardiogram unable to rule out vegetations, family is unavailable for consent for [facility] Colonic mass CT Abd/Pelvis showing colonic mass and hepatic lesions GI consulted: follow recs Flex sig/colonoscopy refused by patient Family unable to be contacted for consent Diabetes mellitus type 2 Cont RISS low Cont Metformin 500mg BID Cont accuchecks Carb consistent diet HTN BP Stable, continue to monitor Cont Lisinopril 10 QD Cont Amlodipine 10 mg PO QD Leukocytosis - RESOLVED WBC elevated 05/17 Patient srinivasan cultured Blood cx negative x2 after 48H Urine cx w/ multiple species ML contaminated Abd U/S - 7mm common bile duct dilatation and gallstones; Hepatic lesions measuring up to 4.9cm and 3.8 cm; compared to prev abd U/S from 12/05 lesions measured 4.1cm and 3.1cm No RUQ tenderness appreciated on exam; ID following, appreciate reccs Affective disorder Cont Celexa 10mg PO Daily Constipation Colace 100mg BID Miralax 17gm BID Discontinued Lactulose Hx ETOH Abuse Cont Thiamine Cont Folic Acid Cont Multivitamin DVT Prophylaxis: SCDs Dispo: Patient continues to display a lack of decision making capacity: Guardianship status to be determined; Court date for guardianship postponed to May 28 2018. <Sixto Galo - Last Filed: 05/21/18 18:18> Objective - Vital Signs/Intake and Output Vital Signs (last 24 hours): Temp Pulse Resp BP Pulse Ox 97.7 F 95 H 19 110/68 95 05/21/18 16:45 05/21/18 16:45 05/21/18 16:45 05/21/18 16:45 05/21/18 16:45 Intake and Output: 05/21/18 05/21/18 06:59 18:59 Intake Total 840 150 Balance 840 150 - Medications Medications: Current Medications Amlodipine Besylate (Norvasc) 10 mg PO DAILY [facility] Last Admin: 05/21/18 11:31 Dose: 10 mg Aspirin (Ecotrin) 81 mg PO DAILY [facility] Last Admin: 05/21/18 11:31 Dose: 81 mg Atorvastatin Calcium (Lipitor) 20 mg PO DIN [facility] Last Admin: 05/21/18 18:01 Dose: 20 mg Citalopram Hydrobromide (Celexa) 10 mg PO DAILY [facility] Last Admin: 05/21/18 11:32 Dose: 10 mg Insulin Human Regular (Humulin R Low) 0 units SC [facility] PRN Reason: Protocol Last Admin: 05/21/18 18:00 Dose: 1 units Lisinopril (Zestril) 10 mg PO DAILY [facility] Last Admin: 05/21/18 11:31 Dose: 10 mg Metformin HCl (Glucophage) 500 mg PO BID [facility] Last Admin: 05/21/18 17:59 Dose: 500 mg Multivitamins/Minerals (Therapeutic-M Tab) 1 tab PO 0800 [facility] Last Admin: 05/21/18 08:49 Dose: 1 tab Thiamine HCl (Vitamin B1 Tab) 100 mg PO DAILY [facility] Last Admin: 05/21/18 11:31 Dose: 100 mg - Labs Labs: 05/19/18 06:00 05/19/18 06:00 PT 12.5 SECONDS (9.4-12.5) 12/09/17 10:00 INR 1.09 (0.93-1.08) H 12/09/17 10:00 APTT 28.3 Seconds (25.1-36.5) 11/30/17 05:30 Attending/Attestation - Attestation I have personally seen and examined this patient.: Yes I have fully participated in the care of the patient.: Yes I have reviewed all pertinent clinical information, including history, physical exam and plan: Yes Notes (Text): 05/21/18 57 year old male who was admitted with altered mental status. He was found to have bacteremia, cellulitis and pneumonia for which he has completed antibiotics. He also had CVA. He is on aspirin and statin. His mental status is at his baseline. Podiatry is following for foot ulceration. No overnight issues. He is comfortable in bed. He is pending placement; pending court date early this month. Sixto Galo MD Hospitalist.
[2018-05-22] MEDS: Multivitamin With Minerals Tab PO SCH (07:31)
[2018-05-22] MEDS: Insulin Reg-LOW-Coverage SC SCH ×3 (08:17→17:07)
--- NOTE | 2018-05-22 10:51 | CP.PCM.PN ---
<James Barroso - Last Filed: 05/22/18 10:49> Subjective - Date & Time of Evaluation Date of Evaluation: 05/22/18 Time of Evaluation: 10:49 - Subjective Subjective: PGY-[address] Galo No acute events overnight. Patient at his baseline in terms of behavior and neuro. He was seen by podiatry yesterday - his right anterior ankle was dressed with Santyl, optifoam, paper tape and left anterior ankle was dressed with optifoam. Objective - Vital Signs/Intake and Output Vital Signs (last 24 hours): Temp Pulse Resp BP Pulse Ox 98.0 F 72 19 110/70 95 05/22/18 06:00 05/22/18 09:25 05/22/18 06:00 05/22/18 09:25 05/22/18 06:00 - Medications Medications: Current Medications Amlodipine Besylate (Norvasc) 10 mg PO DAILY [facility] Last Admin: 05/22/18 09:24 Dose: 10 mg Aspirin (Ecotrin) 81 mg PO DAILY [facility] Last Admin: 05/22/18 09:24 Dose: 81 mg Atorvastatin Calcium (Lipitor) 20 mg PO DIN [facility] Last Admin: 05/21/18 18:01 Dose: 20 mg Citalopram Hydrobromide (Celexa) 10 mg PO DAILY [facility] Last Admin: 05/22/18 09:24 Dose: 10 mg Insulin Human Regular (Humulin R Low) 0 units SC ACHS [facility] PRN Reason: Protocol Last Admin: 05/22/18 08:17 Dose: Not Given Lisinopril (Zestril) 10 mg PO DAILY [facility] Last Admin: 05/22/18 09:25 Dose: 10 mg Metformin HCl (Glucophage) 500 mg PO BID [facility] Last Admin: 05/22/18 09:24 Dose: 500 mg Multivitamins/Minerals (Therapeutic-M Tab) 1 tab PO 0800 [facility] Last Admin: 05/22/18 07:31 Dose: 1 tab Thiamine HCl (Vitamin B1 Tab) 100 mg PO DAILY [facility] Last Admin: 05/22/18 09:24 Dose: 100 mg - Labs Labs: 05/19/18 06:00 05/19/18 06:00 PT 12.5 SECONDS (9.4-12.5) 12/09/17 10:00 INR 1.09 (0.93-1.08) H 12/09/17 10:00 APTT 28.3 Seconds (25.1-36.5) 11/30/17 05:30 - Additional Findings Additional findings: - Constitutional Appears: Non-toxic, No Acute Distress, Awake at baseline - Head Exam Head Exam: ATRAUMATIC, NORMAL INSPECTION, NORMOCEPHALIC - Eye Exam Eye Exam: EOMI, Normal appearance, PERRL - ENT Exam ENT Exam: Mucous Membranes Moist, Normal Oropharynx - Neck Exam Neck Exam: Full ROM, Normal Inspection - Respiratory Exam Respiratory Exam: Clear to Ausculation Bilateral, NORMAL BREATHING PATTERN, no rales, wheezes or rhonchi - Cardiovascular Exam Cardiovascular Exam: REGULAR RHYTHM, +S1, +S2 - GI/Abdominal Exam GI & Abdominal Exam: Soft, Normal Bowel Sounds - Extremities Exam Extremities Exam: Normal Capillary Refill, Normal Inspection Additional comments: R foot bandaged; dressing is clean dry and intact; L foot opti foam bandage applied to L foot. CDI. - Back Exam Back Exam: NORMAL INSPECTION - Neurological Exam Neurological Exam: Alert, Awake Additional comments: Oriented x2 - Psychiatric Exam Psychiatric exam: Flat Affect, Indifferent to questions this AM; short one word responses. - Skin Skin Exam: Dry, Intact, Warm Assessment and Plan - Assessment and Plan (Free Text) Assessment: 57 year old male unknown PMHx admitted on 11/29/17 for AMS, right hip cellulitis , multifocal pneumonia, influenza A, strep viridians bacteremia with findings of stroke on MRI - acute vs. 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 Patient was treated for bacteremia with IV abx. Guardianship establishment pending court date, which was rescheduled for May 28. Plan: Altered mental status At baseline this AM Cont. delirium precautions PT -patient refusing to participate Cont ASA 81 QD / LIPITOR 20 QD Dorsal Right Foot Ulcer Bandaged. Non purulent. Podiatry recommendations appreciated Wound care following [facility] No antibiotics warranted at this time per ID Coag negative Staphylococcus bacteremia - resolved Last bld clx negative 12/04/17 with completion of 6 week course of antibiotics Monitor WBC, ESR, CRP weekly Echocardiogram unable to rule out vegetations, family is unavailable for consent for TAHIR Colonic mass CT Abd/Pelvis showing colonic mass and hepatic lesions GI consulted: follow recs Flex sig/colonoscopy refused by patient Family unable to be contacted for consent Diabetes mellitus type 2 Cont RISS low Cont Metformin 500mg BID Cont accuchecks Carb consistent diet HTN BP Stable, continue to monitor Cont Lisinopril 10 QD Cont Amlodipine 10 mg PO QD Leukocytosis - RESOLVED WBC elevated 05/17 Patient srinivasan cultured Blood cx negative x2 after 48H Urine cx w/ multiple species ML contaminated Abd U/S - 7mm common bile duct dilatation and gallstones; Hepatic lesions measuring up to 4.9cm and 3.8 cm; compared to prev abd U/S from 12/05 lesions measured 4.1cm and 3.1cm No RUQ tenderness appreciated on exam; ID following, appreciate reccs Affective disorder Cont Celexa 10mg PO Daily Constipation Colace 100mg BID Miralax 17gm BID Discontinued Lactulose Hx ETOH Abuse Cont Thiamine Cont Folic Acid Cont Multivitamin DVT Prophylaxis: SCDs Dispo: Patient continues to display a lack of decision making capacity: Guardianship status to be determined; Court date for guardianship postponed to May 28 2018. <Sixto Galo - Last Filed: 05/22/18 12:43> Objective - Vital Signs/Intake and Output Vital Signs (last 24 hours): Temp Pulse Resp BP Pulse Ox 98.0 F 72 19 110/70 95 05/22/18 06:00 05/22/18 09:25 05/22/18 06:00 05/22/18 09:25 05/22/18 06:00 - Medications Medications: Current Medications Amlodipine Besylate (Norvasc) 10 mg PO DAILY [facility] Last Admin: 05/22/18 09:24 Dose: 10 mg Aspirin (Ecotrin) 81 mg PO DAILY [facility] Last Admin: 05/22/18 09:24 Dose: 81 mg Atorvastatin Calcium (Lipitor) 20 mg PO DIN [facility] Last Admin: 05/21/18 18:01 Dose: 20 mg Citalopram Hydrobromide (Celexa) 10 mg PO DAILY [facility] Last Admin: 05/22/18 09:24 Dose: 10 mg Insulin Human Regular (Humulin R Low) 0 units SC [facility] PRN Reason: Protocol Last Admin: 05/22/18 08:17 Dose: Not Given Lisinopril (Zestril) 10 mg PO DAILY [facility] Last Admin: 05/22/18 09:25 Dose: 10 mg Metformin HCl (Glucophage) 500 mg PO BID [facility] Last Admin: 05/22/18 09:24 Dose: 500 mg Multivitamins/Minerals (Therapeutic-M Tab) 1 tab PO 0800 [facility] Last Admin: 05/22/18 07:31 Dose: 1 tab Thiamine HCl (Vitamin B1 Tab) 100 mg PO DAILY [facility] Last Admin: 05/22/18 09:24 Dose: 100 mg - Labs Labs: 05/19/18 06:00 05/19/18 06:00 PT 12.5 SECONDS (9.4-12.5) 12/09/17 10:00 INR 1.09 (0.93-1.08) H 12/09/17 10:00 APTT 28.3 Seconds (25.1-36.5) 11/30/17 05:30 Attending/Attestation - Attestation I have personally seen and examined this patient.: Yes I have fully participated in the care of the patient.: Yes I have reviewed all pertinent clinical information, including history, physical exam and plan: Yes Notes (Text): 05/22/18 12:41 57 year old male who was admitted with altered mental status. He was found to have bacteremia, cellulitis and pneumonia for which he has completed antibiotics. He also had CVA. He is on aspirin and statin. His mental status is at his baseline. Podiatry is following for foot ulceration. Patient has no new complaints this morning. Encouraged patient for out of bed to chair and participate with PT. He is pending placement; pending court date early this month. Sixto Galo MD Hospitalist.
--- NOTE | 2018-05-22 13:44 | PN ---
Copied To: Daniel Torres MD Attending MD: Daniel Torres MD DATE: 05/22/2018 SUBJECTIVE: The patient is seen earlier today and no fevers and no chills. OBJECTIVE: VITAL SIGNS: On exam, temperature is 98, blood pressure is 120/70, respiratory rate 16. HEENT: Examination is unremarkable. NECK: Supple. LUNGS: Have decreased breath sounds. HEART: Normal S1, S2. ABDOMEN: Soft, nontender. DATA: Laboratory examination is reviewed. The patient's white count is 11,000, hemoglobin of 10, platelets of 389. Chemistries reveals a BUN of 19, creatinine of 0.6. Procalcitonin is noted and vanco trough is 10 from 11/2017. ASSESSMENT AND PLAN: This is a 57-year-old male with a long hospital stay initially admitted with strep viridans and a coag-negative Staph bacteremia secondary to right gluteal, back cellulitis, also with healthcare-associated pneumonia and influenza A. The patient with a colon mass with liver metastases, currently off of antibiotics and afebrile. The patient is at risk for developing nosocomial infections. Daniel Torres MD
[2018-05-23] MEDS: Insulin Reg-LOW-Coverage SC SCH ×4 (08:20→22:13)
[2018-05-23] MEDS: Multivitamin With Minerals Tab PO SCH (09:33)
--- NOTE | 2018-05-23 14:44 | CP.PCM.PN ---
<Car Nicholson - Last Filed: 05/23/18 14:41> Subjective - Date & Time of Evaluation Date of Evaluation: 05/23/18 Time of Evaluation: 14:41 - Subjective Subjective: Podiatry Progress Note for Dr. Oakley 57M seen at bedside for right anterior ankle ulceration and left ankle abrasion. Patient is AAO x 3 and NAD at time of visit. Patient denies any pain to his wounds at this time. Denies any acute overnight events or new pedal complaints. Denies any recent N/V/F/C/CP/SOB/D/posterior calf pain when squeezed. Heel offloading boots noted to not be in place at this time. Objective - Vital Signs/Intake and Output Vital Signs (last 24 hours): Temp Pulse Resp BP Pulse Ox 97.8 F 84 20 113/79 95 05/23/18 08:19 05/23/18 08:19 05/23/18 08:19 05/23/18 09:32 05/23/18 08:19 Intake and Output: 05/23/18 05/23/18 06:59 18:59 Intake Total 360 Balance 360 - Medications Medications: Current Medications Amlodipine Besylate (Norvasc) 10 mg PO DAILY [facility] Last Admin: 05/23/18 09:32 Dose: 10 mg Aspirin (Ecotrin) 81 mg PO DAILY [facility] Last Admin: 05/23/18 09:32 Dose: 81 mg Atorvastatin Calcium (Lipitor) 20 mg PO DIN [facility] Last Admin: 05/22/18 17:07 Dose: 20 mg Citalopram Hydrobromide (Celexa) 10 mg PO DAILY [facility] Last Admin: 05/23/18 09:32 Dose: 10 mg Insulin Human Regular (Humulin R Low) 0 units SC [facility] PRN Reason: Protocol Last Admin: 05/23/18 08:20 Dose: Not Given Lisinopril (Zestril) 10 mg PO DAILY [facility] Last Admin: 05/23/18 09:35 Dose: 10 mg Metformin HCl (Glucophage) 500 mg PO BID [facility] Last Admin: 05/23/18 09:32 Dose: 500 mg Multivitamins/Minerals (Therapeutic-M Tab) 1 tab PO 0800 [facility] Last Admin: 05/23/18 09:33 Dose: 1 tab Thiamine HCl (Vitamin B1 Tab) 100 mg PO DAILY [facility] Last Admin: 05/23/18 09:34 Dose: 100 mg - Labs Labs: 05/19/18 06:00 05/19/18 06:00 PT 12.5 SECONDS (9.4-12.5) 12/09/17 10:00 INR 1.09 (0.93-1.08) H 12/09/17 10:00 APTT 28.3 Seconds (25.1-36.5) 11/30/17 05:30 - Constitutional Appears: Well, Non-toxic, No Acute Distress - Extremities Exam Additional comments: B/L Lower extremity exam: VASC: DP and PT faintly palpable b/l, CFT delayed > 3 seconds x 10 digits, temperature gradient cool to cool, no edema noted to the lower extremity NEURO: Epicritic and protective sensation grossly intact b/l DERM: Ulceration noted to the anterior aspect of right ankle at the level of the ankle joint measuring approximately 2 x 2 cm with necrotic scab sloughing off with wound base being mainly fibrotic, improving. No streaking, no drainage , no tunneling, no abscess, no odor or drainage, no fluctuance noted, no clinical signs of infection. No probe to bone. Abrasion noted to left anterior ankle. No clinical signs of infection or break in skin appreciated ORTHO: no pain with palpation to the entire lower extremity, no calf pain or tenderness appreciated, unable to assess MMT secondary to patient's cooperation - Neurological Exam Neurological Exam: Alert, Awake, Oriented x3 - Psychiatric Exam Psychiatric exam: Normal Affect, Normal Mood Assessment and Plan - Assessment and Plan (Free Text) Assessment: 57M seen at bedside for right anterior ankle ulceration and left ankle abrasion. Plan: Patient seen and evaluated Plan discussed with Dr. Oakley Afebrile Wound dressed with santyl, optifoam right side and optifoam left side No plan for surgical intervention at this time Discussed with nursing need for heel offloading at all times while in bed Podiatry will continue to follow while patient in house <Ivania Oakley - Last Filed: 05/25/18 08:01> Objective - Vital Signs/Intake and Output Vital Signs (last 24 hours): Temp Pulse Resp BP Pulse Ox 97.3 F L 70 18 102/66 95 05/25/18 07:47 05/25/18 07:47 05/25/18 07:47 05/25/18 07:47 05/25/18 07:47 Intake and Output: 05/25/18 05/25/18 06:59 18:59 Intake Total 180 Balance 180 - Medications Medications: Current Medications Amlodipine Besylate (Norvasc) 10 mg PO DAILY [facility] Last Admin: 05/24/18 11:28 Dose: 10 mg Aspirin (Ecotrin) 81 mg PO DAILY [facility] Last Admin: 05/24/18 11:28 Dose: 81 mg Atorvastatin Calcium (Lipitor) 20 mg PO DIN [facility] Last Admin: 05/24/18 18:15 Dose: 20 mg Insulin Human Regular (Humulin R Low) [address] [facility] PRN Reason: Protocol Last Admin: 05/24/18 22:39 Dose: Not Given Lisinopril (Zestril) 10 mg PO DAILY [facility] Last Admin: 05/24/18 11:30 Dose: 10 mg Metformin HCl (Glucophage) 500 mg PO BID [facility] Last Admin: 05/24/18 18:15 Dose: 500 mg Multivitamins/Minerals (Therapeutic-M Tab) 1 tab PO 0800 [facility] Last Admin: 05/24/18 11:29 Dose: 1 tab Thiamine HCl (Vitamin B1 Tab) 100 mg PO DAILY [facility] Last Admin: 05/23/18 09:34 Dose: 100 mg - Labs Labs: 05/25/18 06:05 05/25/18 06:05 PT 12.5 SECONDS (9.4-12.5) 12/09/17 10:00 INR 1.09 (0.93-1.08) H 12/09/17 10:00 APTT 28.3 Seconds (25.1-36.5) 11/30/17 05:30 Attending/Attestation - Attestation I have personally seen and examined this patient.: Yes I have fully participated in the care of the patient.: Yes I have reviewed all pertinent clinical information, including history, physical exam and plan: Yes
--- NOTE | 2018-05-23 14:50 | CP.PCM.PN ---
Subjective - Date & Time of Evaluation Date of Evaluation: 05/23/18 Time of Evaluation: 11:00 - Subjective Subjective: No fevers, not in distress, afebrile, no diarrhea. Objective - Vital Signs/Intake and Output Vital Signs (last 24 hours): Temp Pulse Resp BP Pulse Ox 97.8 F 84 20 113/79 95 05/23/18 08:19 05/23/18 08:19 05/23/18 08:19 05/23/18 09:32 05/23/18 08:19 Intake and Output: 05/23/18 05/23/18 06:59 18:59 Intake Total 360 Balance 360 - Medications Medications: Current Medications Amlodipine Besylate (Norvasc) 10 mg PO DAILY [facility] Last Admin: 05/23/18 09:32 Dose: 10 mg Aspirin (Ecotrin) 81 mg PO DAILY [facility] Last Admin: 05/23/18 09:32 Dose: 81 mg Atorvastatin Calcium (Lipitor) 20 mg PO DIN [facility] Last Admin: 05/22/18 17:07 Dose: 20 mg Citalopram Hydrobromide (Celexa) 10 mg PO DAILY [facility] Last Admin: 05/23/18 09:32 Dose: 10 mg Insulin Human Regular (Humulin R Low) [address] [facility] PRN Reason: Protocol Last Admin: 05/23/18 08:20 Dose: Not Given Lisinopril (Zestril) 10 mg PO DAILY [facility] Last Admin: 05/23/18 09:35 Dose: 10 mg Metformin HCl (Glucophage) 500 mg PO BID [facility] Last Admin: 05/23/18 09:32 Dose: 500 mg Multivitamins/Minerals (Therapeutic-M Tab) 1 tab PO 0800 [facility] Last Admin: 05/23/18 09:33 Dose: 1 tab Thiamine HCl (Vitamin B1 Tab) 100 mg PO DAILY [facility] Last Admin: 05/23/18 09:34 Dose: 100 mg - Labs Labs: 05/19/18 06:00 05/19/18 06:00 PT 12.5 SECONDS (9.4-12.5) 12/09/17 10:00 INR 1.09 (0.93-1.08) H 12/09/17 10:00 APTT 28.3 Seconds (25.1-36.5) 11/30/17 05:30 - Constitutional Appears: Non-toxic, Chronically Ill - Head Exam Head Exam: NORMAL INSPECTION - Respiratory Exam Respiratory Exam: Decreased Breath Sounds - Cardiovascular Exam Cardiovascular Exam: +S1, +S2 - GI/Abdominal Exam GI & Abdominal Exam: Soft. absent: Tenderness Assessment and Plan - Assessment and Plan (Free Text) Plan: Assessment S/P systemic inflammatory response syndrome, with no evidence of sepsis or infection, resolved S/P sepsis due to strep viridans and CoNS bacteremia from right gluteal and back cellulitis S/P multifocal HCAP on top of Influenza A infection S/P Sammie infection of sacral area as well peripheral vascular disease Plan continue to monitor clinically off antibiotics since he is at risk for hospital- acquired infections - repeat blood cx are negative, PCT is normal urine culture shows contamination - follow up further plans for the liver masses noted on ultrasound abdomen
--- NOTE | 2018-05-23 15:39 | CP.PCM.PN ---
<Mariano Morin - Last Filed: 05/23/18 15:38> Subjective - Date & Time of Evaluation Date of Evaluation: 05/23/18 Time of Evaluation: 15:38 - Subjective Subjective: Mariano Morin DO PGY1 Internal Medicine Home Assessment Nurse- Hospital Progress Note Pt. seen and examined this am at bedside; no issues reported by nursing overnight. Pt. denies any complaints this AM. Nursing reported BM last night. Patient is at baseline today. Objective - Vital Signs/Intake and Output Vital Signs (last 24 hours): Temp Pulse Resp BP Pulse Ox 97.8 F 84 20 113/79 95 05/23/18 08:19 05/23/18 08:19 05/23/18 08:19 05/23/18 09:32 05/23/18 08:19 Intake and Output: 05/23/18 05/23/18 06:59 18:59 Intake Total 360 Balance 360 - Medications Medications: Current Medications Amlodipine Besylate (Norvasc) 10 mg PO DAILY [facility] Last Admin: 05/23/18 09:32 Dose: 10 mg Aspirin (Ecotrin) 81 mg PO DAILY [facility] Last Admin: 05/23/18 09:32 Dose: 81 mg Atorvastatin Calcium (Lipitor) 20 mg PO DIN [facility] Last Admin: 05/22/18 17:07 Dose: 20 mg Citalopram Hydrobromide (Celexa) 10 mg PO DAILY [facility] Last Admin: 05/23/18 09:32 Dose: 10 mg Insulin Human Regular (Humulin R Low) 0 units SC [facility] PRN Reason: Protocol Last Admin: 05/23/18 08:20 Dose: Not Given Lisinopril (Zestril) 10 mg PO DAILY [facility] Last Admin: 05/23/18 09:35 Dose: 10 mg Metformin HCl (Glucophage) 500 mg PO BID [facility] Last Admin: 05/23/18 09:32 Dose: 500 mg Multivitamins/Minerals (Therapeutic-M Tab) 1 tab PO 0800 [facility] Last Admin: 05/23/18 09:33 Dose: 1 tab Thiamine HCl (Vitamin B1 Tab) 100 mg PO DAILY [facility] Last Admin: 05/23/18 09:34 Dose: 100 mg - Labs Labs: 05/19/18 06:00 05/19/18 06:00 PT 12.5 SECONDS (9.4-12.5) 12/09/17 10:00 INR 1.09 (0.93-1.08) H 12/09/17 10:00 APTT 28.3 Seconds (25.1-36.5) 11/30/17 05:30 Physical Exam - Constitutional Appears: Non-toxic, No Acute Distress, Awake at baseline - Head Exam Head Exam: ATRAUMATIC, NORMAL INSPECTION, NORMOCEPHALIC - Eye Exam Eye Exam: EOMI, Normal appearance, PERRL - ENT Exam ENT Exam: Mucous Membranes Moist, Normal Oropharynx - Neck Exam Neck Exam: Full ROM, Normal Inspection - Respiratory Exam Respiratory Exam: Clear to Ausculation Bilateral, NORMAL BREATHING PATTERN, no rales, wheezes or rhonchi - Cardiovascular Exam Cardiovascular Exam: REGULAR RHYTHM, +S1, +S2 - GI/Abdominal Exam GI & Abdominal Exam: Soft, Normal Bowel Sounds - Extremities Exam Extremities Exam: Normal Capillary Refill, Normal Inspection Additional comments: R foot bandaged; dressing is clean dry and intact; L foot opti foam bandage applied to L foot. CDI. - Back Exam Back Exam: NORMAL INSPECTION - Neurological Exam Neurological Exam: Alert, Awake Additional comments: Oriented x2 - Psychiatric Exam Psychiatric exam: Flat Affect, Indifferent to questions this AM; short one word responses. - Skin Skin Exam: Dry, Intact, Warm Assessment and Plan - Assessment and Plan (Free Text) Assessment: 57 year old male unknown PMHx admitted on 11/29/17 for AMS, right hip cellulitis , multifocal pneumonia, influenza A, strep viridians bacteremia with findings of stroke on MRI - acute vs. 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 Patient was treated for bacteremia with IV abx. Guardianship establishment pending court date, which was rescheduled for May 28. Plan: Altered mental status At baseline this AM Cont. delirium precautions PT -patient refusing to participate Cont ASA 81 QD / LIPITOR 20 QD Dorsal Right Foot Ulcer Bandaged. Non purulent. Podiatry recommendations appreciated Wound care following On [facility] No antibiotics warranted at this time per ID Coag negative Staphylococcus bacteremia - resolved Last bld clx negative 12/04/17 with completion of 6 week course of antibiotics Monitor WBC, ESR, CRP weekly Echocardiogram unable to rule out vegetations, family is unavailable for consent for TAHIR Colonic mass CT Abd/Pelvis showing colonic mass and hepatic lesions GI consulted: follow recs Flex sig/colonoscopy refused by patient Family unable to be contacted for consent Diabetes mellitus type 2 Cont RISS low Cont Metformin 500mg BID Cont accuchecks Carb consistent diet HTN BP Stable, continue to monitor Cont Lisinopril 10 QD Cont Amlodipine 10 mg PO QD Leukocytosis - RESOLVED WBC elevated 05/17 Patient srinivasan cultured Blood cx negative x2 after 48H Urine cx w/ multiple species ML contaminated Abd U/S - 7mm common bile duct dilatation and gallstones; Hepatic lesions measuring up to 4.9cm and 3.8 cm; compared to prev abd U/S from 12/05 lesions measured 4.1cm and 3.1cm No RUQ tenderness appreciated on exam; ID following, appreciate reccs Affective disorder Cont Celexa 10mg PO Daily Constipation Colace 100mg BID Miralax 17gm BID Discontinued Lactulose Hx ETOH Abuse Cont Thiamine Cont Folic Acid Cont Multivitamin DVT Prophylaxis: SCDs Dispo: Patient continues to display a lack of decision making capacity: Guardianship status to be determined; Court date for guardianship postponed to May 28 2018. Pt. seen, examined, and discussed with attending physician Dr. Endy Morin DO PGY1 Internal Medicine Home Assessment Nurse - Pager [phone] <Deanna Schumacher - Last Filed: 05/23/18 16:36> Objective - Vital Signs/Intake and Output Vital Signs (last 24 hours): Temp Pulse Resp BP Pulse Ox 97.8 F 84 20 113/79 95 05/23/18 08:19 05/23/18 08:19 05/23/18 08:19 05/23/18 09:32 05/23/18 08:19 Intake and Output: 05/23/18 05/23/18 06:59 18:59 Intake Total 360 Balance 360 - Medications Medications: Current Medications Amlodipine Besylate (Norvasc) 10 mg PO DAILY [facility] Last Admin: 05/23/18 09:32 Dose: 10 mg Aspirin (Ecotrin) 81 mg PO DAILY [facility] Last Admin: 05/23/18 09:32 Dose: 81 mg Atorvastatin Calcium (Lipitor) 20 mg PO DIN [facility] Last Admin: 05/22/18 17:07 Dose: 20 mg Citalopram Hydrobromide (Celexa) 10 mg PO DAILY [facility] Last Admin: 05/23/18 09:32 Dose: 10 mg Insulin Human Regular (Humulin R Low) 0 units SC [facility] PRN Reason: Protocol Last Admin: 05/23/18 08:20 Dose: Not Given Lisinopril (Zestril) 10 mg PO DAILY [facility] Last Admin: 05/23/18 09:35 Dose: 10 mg Metformin HCl (Glucophage) 500 mg PO BID [facility] Last Admin: 05/23/18 09:32 Dose: 500 mg Multivitamins/Minerals (Therapeutic-M Tab) 1 tab PO 0800 [facility] Last Admin: 05/23/18 09:33 Dose: 1 tab Thiamine HCl (Vitamin B1 Tab) 100 mg PO DAILY [facility] Last Admin: 05/23/18 09:34 Dose: 100 mg - Labs Labs: 05/19/18 06:00 05/19/18 06:00 PT 12.5 SECONDS (9.4-12.5) 12/09/17 10:00 INR 1.09 (0.93-1.08) H 12/09/17 10:00 APTT 28.3 Seconds (25.1-36.5) 11/30/17 05:30 Attending/Attestation - Attestation I have personally seen and examined this patient.: Yes I have fully participated in the care of the patient.: Yes I have reviewed all pertinent clinical information, including history, physical exam and plan: Yes Notes (Text): 05/23/18 16:34 Medical record note made by the resident after discussion with my direction and input after the patient was personally seen and examined by me. I have reviewed the chart and agree that the record accurately reflects by personal performance of the history, physical exam, data review, and medical decision-making, in the course for the patient. I have also personally directed the plan of care. Patient is stable at his base line.There is no overnight issue.He is awaiting guardianship paper work before placement. Prognosis is guarded.
--- NOTE | 2018-05-24 05:57 | CP.PCM.PN ---
<Mariano Morin - Last Filed: 05/24/18 16:00> Subjective - Date & Time of Evaluation Date of Evaluation: 05/24/18 Time of Evaluation: 05:57 - Subjective Subjective: Mariano Morin DO PGY1 Internal Medicine Dynamometer Repairer - Hospital Progress Note Patient seen this AM at bedside; no complaints . Patient is at baseline 12 system ROS negative. Objective - Vital Signs/Intake and Output Vital Signs (last 24 hours): Temp Pulse Resp BP Pulse Ox 97.9 F 93 H 20 116/68 98 05/23/18 18:00 05/23/18 18:00 05/23/18 18:00 05/23/18 18:00 05/23/18 18:00 - Medications Medications: Current Medications Amlodipine Besylate (Norvasc) 10 mg PO DAILY [facility] Last Admin: 05/23/18 09:32 Dose: 10 mg Aspirin (Ecotrin) 81 mg PO DAILY [facility] Last Admin: 05/23/18 09:32 Dose: 81 mg Atorvastatin Calcium (Lipitor) 20 mg PO DIN [facility] Last Admin: 05/23/18 18:29 Dose: 20 mg Citalopram Hydrobromide (Celexa) 10 mg PO DAILY [facility] Last Admin: 05/23/18 09:32 Dose: 10 mg Insulin Human Regular (Humulin R Low) 0 units SC [facility] PRN Reason: Protocol Last Admin: 05/23/18 22:13 Dose: Not Given Lisinopril (Zestril) 10 mg PO DAILY [facility] Last Admin: 05/23/18 09:35 Dose: 10 mg Metformin HCl (Glucophage) 500 mg PO BID [facility] Last Admin: 05/23/18 18:29 Dose: 500 mg Multivitamins/Minerals (Therapeutic-M Tab) 1 tab PO 0800 [facility] Last Admin: 05/23/18 09:33 Dose: 1 tab Thiamine HCl (Vitamin B1 Tab) 100 mg PO DAILY [facility] Last Admin: 05/23/18 09:34 Dose: 100 mg - Labs Labs: 05/19/18 06:00 05/19/18 06:00 PT 12.5 SECONDS (9.4-12.5) 12/09/17 10:00 INR 1.09 (0.93-1.08) H 12/09/17 10:00 APTT 28.3 Seconds (25.1-36.5) 11/30/17 05:30 Physical Exam - Constitutional Appears: Non-toxic, No Acute Distress, Awake at baseline - Head Exam Head Exam: ATRAUMATIC, NORMAL INSPECTION, NORMOCEPHALIC - Eye Exam Eye Exam: EOMI, Normal appearance, PERRL - ENT Exam ENT Exam: Mucous Membranes Moist, Normal Oropharynx - Neck Exam Neck Exam: Full ROM, Normal Inspection - Respiratory Exam Respiratory Exam: Clear to Ausculation Bilateral, NORMAL BREATHING PATTERN, no rales, wheezes or rhonchi - Cardiovascular Exam Cardiovascular Exam: REGULAR RHYTHM, +S1, +S2 - GI/Abdominal Exam GI & Abdominal Exam: Soft, Normal Bowel Sounds - Extremities Exam Extremities Exam: Normal Capillary Refill, Normal Inspection Additional comments: R foot bandaged; dressing is clean dry and intact; L foot opti foam bandage applied to L foot. CDI. - Back Exam Back Exam: NORMAL INSPECTION - Neurological Exam Neurological Exam: Alert, Awake Additional comments: Oriented x2 - Psychiatric Exam Psychiatric exam: Flat Affect, Indifferent to questions this AM; short one word responses. - Skin Skin Exam: Dry, Intact, Warm Assessment and Plan - Assessment and Plan (Free Text) Assessment: 57 year old male unknown PMHx admitted on 11/29/17 for AMS, right hip cellulitis , multifocal pneumonia, influenza A, strep viridians bacteremia with findings of stroke on MRI - acute vs. 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 Patient was treated for bacteremia with IV abx. Guardianship establishment pending court date, which was rescheduled for May 28. Plan: Altered mental status At baseline this AM Cont. delirium precautions PT -patient refusing to participate Cont ASA 81 QD / LIPITOR 20 QD Dorsal Right Foot Ulcer Bandaged. Non purulent. Podiatry recommendations appreciated Wound care following On [facility] No antibiotics warranted at this time per ID Coag negative Staphylococcus bacteremia - resolved Last bld clx negative 12/04/17 with completion of 6 week course of antibiotics Monitor WBC, ESR, CRP weekly Echocardiogram unable to rule out vegetations, family is unavailable for consent for TAHIR Colonic mass CT Abd/Pelvis showing colonic mass and hepatic lesions GI consulted: follow recs Flex sig/colonoscopy refused by patient Family unable to be contacted for consent Diabetes mellitus type 2 Cont RISS low Cont Metformin 500mg BID Cont accuchecks Carb consistent diet HTN BP Stable, continue to monitor Cont Lisinopril 10 QD Cont Amlodipine 10 mg PO QD Leukocytosis - RESOLVED WBC elevated 05/17 Patient srinivasan cultured Blood cx negative x2 after 48H Urine cx w/ multiple species ML contaminated Abd U/S - 7mm common bile duct dilatation and gallstones; Hepatic lesions measuring up to 4.9cm and 3.8 cm; compared to prev abd U/S from 12/05 lesions measured 4.1cm and 3.1cm No RUQ tenderness appreciated on exam; ID following, appreciate reccs Affective disorder Cont Celexa 10mg PO Daily Constipation Colace 100mg BID Miralax 17gm BID Discontinued Lactulose Hx ETOH Abuse Cont Thiamine Cont Folic Acid Cont Multivitamin DVT Prophylaxis: SCDs Dispo: Patient continues to display a lack of decision making capacity: Guardianship status to be determined; Court date for guardianship postponed to May 28 2018. Pt. seen, examined, and discussed with attending physician Dr. Endy Morin DO PGY1 Internal Medicine Dynamometer Repairer - Pager [phone] <Deanna Schumacher - Last Filed: 05/26/18 17:08> Objective - Vital Signs/Intake and Output Vital Signs (last 24 hours): Temp Pulse Resp BP Pulse Ox 98 F 89 18 137/77 97 05/26/18 16:08 05/26/18 16:08 05/26/18 16:08 05/26/18 16:08 05/26/18 16:08 Intake and Output: 05/26/18 05/26/18 06:59 18:59 Intake Total 960 Balance 960 - Medications Medications: Current Medications Ferrous Sulfate (Feosol Liq) 300 mg PO BID [facility] Last Admin: 05/26/18 12:24 Dose: 300 mg - Labs Labs: 05/25/18 06:05 05/25/18 06:05 PT 12.5 SECONDS (9.4-12.5) 12/09/17 10:00 INR 1.09 (0.93-1.08) H 12/09/17 10:00 APTT 28.3 Seconds (25.1-36.5) 11/30/17 05:30 Attending/Attestation - Attestation I have personally seen and examined this patient.: Yes I have fully participated in the care of the patient.: Yes I have reviewed all pertinent clinical information, including history, physical exam and plan: Yes Notes (Text): 05/26/18 17:08 Medical record note made by the resident after discussion with my direction and input after the patient was personally seen and examined by me. I have reviewed the chart and agree that the record accurately reflects by personal performance of the history, physical exam, data review, and medical decision-making, in the course for the patient. I have also personally directed the plan of care.
[2018-05-24] MEDS: Insulin Reg-LOW-Coverage SC SCH ×4 (07:53→22:39)
[2018-05-24] MEDS: Multivitamin With Minerals Tab PO SCH (11:29)
--- NOTE | 2018-05-24 18:36 | PN ---
Copied To: Raciel Davis DPM Attending MD: aRciel Davis DPM DATE: 05/24/2018 SUBJECTIVE: A 57-year-old male, seen at bedside for continued evaluation and management of diabetic right anterior ankle ulceration as well as a resolving left ankle abrasion. The patient is noted to not have his offloading boots in place at this time and is still mildly combative, mildly uncooperative when dressing changes are attempted. He remains afebrile and has no recent fever, chills, nausea or shortness of breath. The patient's vital signs reveal a temperature of 97.1, pulse rate of 85, blood pressure of 110/71, respiratory rate of 20. Laboratory findings reveal white count of 11, hemoglobin of 10.1, hematocrit of 31.7, platelet count of 389. OBJECTIVE: Weakly palpable pedal pulses noted bilaterally. Capillary filling time is delayed x10. Temperature gradient is cool to cool. There is noted to be no lower extremity edema. The patient is unable to detect 5.07 g monofilament wire testing bilaterally. There is no pain upon palpation of the gastroc-soleus complex bilaterally. There is a full-thickness ulceration located on the anterior aspect of the right ankle at the level of the ankle joint that measures approximately 1.6 cm x 1.5 cm x 0.2 cm. The base of the ulcer reveals a mixture of necrotic slough as well as granular tissue. There is a chronic sloughing with granular and fibrotic tissue. There is noted to be minimal serous drainage. There is no purulence. There is no malodor. There is no underlying abscess formation. There is noted to be minimal serous drainage. There is no probe to bone. There is a resolving left anterior ankle abrasion with no clinical signs of infection seen. ASSESSMENT: A 57-year-old male, seen at bedside for diabetic right anterior ankle ulceration and a left ankle abrasion, both resolving slowly. PLAN: The patient's wounds were cleansed with normal sterile saline and application of Santyl, Optifoam was applied to the right ankle ulceration and an Optifoam was applied to the left ankle abrasion. There are no plans for surgical intervention at this time. Nursing staff was informed that we need to offload his heels at all times when he is in bed or he will develop heel ulcerations. The patient will be seen and followed while in-house. Raciel Davis DPM [facility] # [id number]
--- NOTE | 2018-05-24 19:21 | CP.PCM.PN ---
Subjective - Date & Time of Evaluation Date of Evaluation: 05/24/18 Time of Evaluation: 10:20 - Subjective Subjective: Afebrile, comfortable in bed, no diarrhea. Objective - Vital Signs/Intake and Output Vital Signs (last 24 hours): Temp Pulse Resp BP Pulse Ox 97.1 F L 85 20 110/71 98 05/24/18 08:16 05/24/18 08:16 05/24/18 08:16 05/24/18 08:16 05/24/18 08:16 Intake and Output: 05/24/18 05/24/18 06:59 18:59 Intake Total 120 Balance 120 - Medications Medications: Current Medications Amlodipine Besylate (Norvasc) 10 mg PO DAILY [facility] Last Admin: 05/23/18 09:32 Dose: 10 mg Aspirin (Ecotrin) 81 mg PO DAILY [facility] Last Admin: 05/23/18 09:32 Dose: 81 mg Atorvastatin Calcium (Lipitor) 20 mg PO DIN [facility] Last Admin: 05/23/18 18:29 Dose: 20 mg Insulin Human Regular (Humulin R Low) 0 units SC [facility] PRN Reason: Protocol Last Admin: 05/24/18 07:53 Dose: Not Given Lisinopril (Zestril) 10 mg PO DAILY [facility] Last Admin: 05/23/18 09:35 Dose: 10 mg Metformin HCl (Glucophage) 500 mg PO BID [facility] Last Admin: 05/23/18 18:29 Dose: 500 mg Multivitamins/Minerals (Therapeutic-M Tab) 1 tab PO 0800 [facility] Last Admin: 05/23/18 09:33 Dose: 1 tab Thiamine HCl (Vitamin B1 Tab) 100 mg PO DAILY [facility] Last Admin: 05/23/18 09:34 Dose: 100 mg - Labs Labs: 05/19/18 06:00 05/19/18 06:00 PT 12.5 SECONDS (9.4-12.5) 12/09/17 10:00 INR 1.09 (0.93-1.08) H 12/09/17 10:00 APTT 28.3 Seconds (25.1-36.5) 11/30/17 05:30 - Constitutional Appears: Chronically Ill - Head Exam Head Exam: NORMAL INSPECTION - Respiratory Exam Respiratory Exam: Decreased Breath Sounds - Cardiovascular Exam Cardiovascular Exam: +S1, +S2 - GI/Abdominal Exam GI & Abdominal Exam: Soft. absent: Tenderness Assessment and Plan - Assessment and Plan (Free Text) Plan: Assessment S/P systemic inflammatory response syndrome, with no evidence of sepsis or infection, resolved S/P sepsis due to strep viridans and CoNS bacteremia from right gluteal and back cellulitis S/P multifocal HCAP on top of Influenza A infection S/P Sammie infection of sacral area as well peripheral vascular disease Plan continue to monitor clinically off antibiotics since he is at risk for healthcare-associated infections - repeat blood cx are negative, PCT is normal urine culture shows contamination - follow up further plans for the liver masses noted on ultrasound abdomen
[2018-05-25 06:24] LABS: BASO # 0.02 K/mm3 (0.0-2.0); BASO % 0.2 % (0.0-3.0); EOS # 0.2 (0.0-0.7); EOS % 1.6 % (1.5-5.0); GRAN # 6.19 (1.4-6.5); GRAN % 59.8 % (50.0-68.0); HEMOGLOBIN 9.8 g/dL (14.0-18.0); LYMPH # 3.2 (1.2-3.4); LYMPH % 31.1 % (22.0-35.0); MEAN CELL VOLUME 76.6 fl (80.0-105.0); MEAN CORPUSCULAR HEMOGLOBIN 25.2 pg (25.0-35.0); MEAN CORPUSCULAR HGB CONC 32.9 g/dl (31.0-37.0); MEAN PLATELET VOLUME 8.5 fl (7.0-11.0); MONO # 0.8 (0.1-0.6); MONO % 7.3 % (1.0-6.0); RBC 3.89 10^6/uL (3.5-6.1); RED CELL DISTRIBUTION WIDTH 15.1 % (11.5-14.5); WHITE BLOOD COUNT 10.4 10^3/ul (4.5-11.0)
[2018-05-25 06:59] LABS: ALBUMIN 3.5 g/dL (3.0-4.8); ALT/SGPT 28 U/L (7-56); AST/SGOT 42 U/L (17-59); BLOOD UREA NITROGEN 16 mg/dL (7-21); CALCIUM 9.1 mg/dL (8.4-10.5); GFR NON-AFRICAN AMERICAN > 60
[2018-05-25] MEDS: Multivitamin With Minerals Tab PO SCH (08:07)
[2018-05-25] MEDS: Insulin Reg-LOW-Coverage SC SCH ×4 (08:34→21:41)
[2018-05-25 11:55] LABS: IRON 36 ug/dL (45-180)
[2018-05-25 12:05] LABS: % IRON SATURATION 11 % (20-55); TOTAL IRON BINDING CAPACITY 331 ug/dL (261-462)
--- NOTE | 2018-05-25 16:07 | CP.PCM.PN ---
<Mariano Morin - Last Filed: 05/25/18 15:58> Subjective - Date & Time of Evaluation Date of Evaluation: 05/25/18 Time of Evaluation: 15:58 - Subjective Subjective: Mariano Morin DO PGY1 Internal Medicine Manufacturing Quality Technician - Hospital Progress Note Patient seen and examined this AM at bedside; No complaints voiced overnight; no issues reproted by nursing. ROS negative. Patient at baseline. Objective - Vital Signs/Intake and Output Vital Signs (last 24 hours): Temp Pulse Resp BP Pulse Ox 97.3 F L 70 18 102/66 95 05/25/18 07:47 05/25/18 10:33 05/25/18 07:47 05/25/18 10:34 05/25/18 07:47 Intake and Output: 05/25/18 05/25/18 06:59 18:59 Intake Total 180 Balance 180 - Medications Medications: Current Medications Insulin Human Regular (Humulin R Low) 0 units SC ACHS [facility] PRN Reason: Protocol Last Admin: 05/25/18 12:39 Dose: Not Given Metformin HCl (Glucophage) 500 mg PO BID [facility] Last Admin: 05/25/18 10:34 Dose: 500 mg - Labs Labs: 05/25/18 06:05 05/25/18 06:05 PT 12.5 SECONDS (9.4-12.5) 12/09/17 10:00 INR 1.09 (0.93-1.08) H 12/09/17 10:00 APTT 28.3 Seconds (25.1-36.5) 11/30/17 05:30 Physical Exam - Constitutional Appears: Non-toxic, No Acute Distress, Awake at baseline - Head Exam Head Exam: ATRAUMATIC, NORMAL INSPECTION, NORMOCEPHALIC - Eye Exam Eye Exam: EOMI, Normal appearance, PERRL - ENT Exam ENT Exam: Mucous Membranes Moist, Normal Oropharynx - Neck Exam Neck Exam: Full ROM, Normal Inspection - Respiratory Exam Respiratory Exam: Clear to Ausculation Bilateral, NORMAL BREATHING PATTERN, no rales, wheezes or rhonchi - Cardiovascular Exam Cardiovascular Exam: REGULAR RHYTHM, +S1, +S2 - GI/Abdominal Exam GI & Abdominal Exam: Soft, Normal Bowel Sounds - Extremities Exam Extremities Exam: Normal Capillary Refill, Normal Inspection Additional comments: R foot bandaged; dressing is clean dry and intact; L foot opti foam bandage applied to L foot. CDI. - Back Exam Back Exam: NORMAL INSPECTION - Neurological Exam Neurological Exam: Alert, Awake Additional comments: Oriented x2 - Psychiatric Exam Psychiatric exam: Flat Affect, Indifferent to questions this AM; short one word responses. - Skin Skin Exam: Dry, Intact, Warm Assessment and Plan - Assessment and Plan (Free Text) Assessment: 57 year old male unknown PMHx admitted on 11/29/17 for AMS, right hip cellulitis , multifocal pneumonia, influenza A, strep viridians bacteremia with findings of stroke on MRI - acute vs. 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 Patient was treated for bacteremia with IV abx. Guardianship establishment pending court date, which was rescheduled for May 28. Plan: Anemia: H/H slowly downtrending over hospitalization; patient has had + heme occult test as well as known colonic polyp Most likely Fe+ deficiency in nature Patient with a microcytic anemia Iron level low TIBC wnl Retic count pending Altered mental status At baseline this AM Cont. delirium precautions PT -patient refusing to participate Cont ASA 81 QD / LIPITOR 20 QD Dorsal Right Foot Ulcer Bandaged. Non purulent. Podiatry recommendations appreciated Wound care following On [facility] No antibiotics warranted at this time per ID Coag negative Staphylococcus bacteremia - resolved Last bld clx negative 12/04/17 with completion of 6 week course of antibiotics Monitor WBC, ESR, CRP weekly Echocardiogram unable to rule out vegetations, family is unavailable for consent for TAHIR Colonic mass CT Abd/Pelvis showing colonic mass and hepatic lesions GI consulted: follow recs Flex sig/colonoscopy refused by patient Family unable to be contacted for consent Diabetes mellitus type 2 Cont RISS low Cont Metformin 500mg BID Cont accuchecks Carb consistent diet HTN BP Stable, continue to monitor Cont Lisinopril 10 QD Cont Amlodipine 10 mg PO QD Leukocytosis - RESOLVED WBC elevated 05/17 Patient srinivasan cultured Blood cx negative x2 after 48H Urine cx w/ multiple species ML contaminated Abd U/S - 7mm common bile duct dilatation and gallstones; Hepatic lesions measuring up to 4.9cm and 3.8 cm; compared to prev abd U/S from 12/05 lesions measured 4.1cm and 3.1cm No RUQ tenderness appreciated on exam; ID following, appreciate reccs Affective disorder Cont Celexa 10mg PO Daily Constipation Colace 100mg BID Miralax 17gm BID Discontinued Lactulose Hx ETOH Abuse Cont Thiamine Cont Folic Acid Cont Multivitamin DVT Prophylaxis: SCDs Dispo: Patient continues to display a lack of decision making capacity: Guardianship status to be determined; Court date for guardianship postponed to May 28 2018. Pt. seen, examined, and discussed with attending physician Dr. Endy Morin DO PGY1 Internal Medicine Manufacturing Quality Technician - Pager [phone] <Deanna Schumacher - Last Filed: 05/26/18 17:08> Objective - Vital Signs/Intake and Output Vital Signs (last 24 hours): Temp Pulse Resp BP Pulse Ox 98 F 89 18 137/77 97 05/26/18 16:08 05/26/18 16:08 05/26/18 16:08 05/26/18 16:08 05/26/18 16:08 Intake and Output: 05/26/18 05/26/18 06:59 18:59 Intake Total 960 Balance 960 - Medications Medications: Current Medications Ferrous Sulfate (Feosol Liq) 300 mg PO BID [facility] Last Admin: 05/26/18 12:24 Dose: 300 mg - Labs Labs: 05/25/18 06:05 05/25/18 06:05 PT 12.5 SECONDS (9.4-12.5) 12/09/17 10:00 INR 1.09 (0.93-1.08) H 12/09/17 10:00 APTT 28.3 Seconds (25.1-36.5) 11/30/17 05:30 Attending/Attestation - Attestation I have personally seen and examined this patient.: Yes I have fully participated in the care of the patient.: Yes I have reviewed all pertinent clinical information, including history, physical exam and plan: Yes Notes (Text): 05/26/18 17:08 Medical record note made by the resident after discussion with my direction and input after the patient was personally seen and examined by me. I have reviewed the chart and agree that the record accurately reflects by personal performance of the history, physical exam, data review, and medical decision-making, in the course for the patient. I have also personally directed the plan of care.
--- NOTE | 2018-05-25 17:34 | CP.PCM.PN ---
Subjective - Date & Time of Evaluation Date of Evaluation: 05/25/18 Time of Evaluation: 09:20 - Subjective Subjective: No fevers, not in distress, no diarrhea, no vomiting. Objective - Vital Signs/Intake and Output Vital Signs (last 24 hours): Temp Pulse Resp BP Pulse Ox 96.9 F L 86 19 120/74 97 05/24/18 17:03 05/24/18 17:03 05/24/18 17:03 05/24/18 17:03 05/24/18 17:03 - Medications Medications: Current Medications Amlodipine Besylate (Norvasc) 10 mg PO DAILY [facility] Last Admin: 05/24/18 11:28 Dose: 10 mg Aspirin (Ecotrin) 81 mg PO DAILY [facility] Last Admin: 05/24/18 11:28 Dose: 81 mg Atorvastatin Calcium (Lipitor) 20 mg PO DIN [facility] Last Admin: 05/24/18 18:15 Dose: 20 mg Insulin Human Regular (Humulin R Low) 0 units SC ACHS [facility] PRN Reason: Protocol Last Admin: 05/24/18 18:35 Dose: 1 units Lisinopril (Zestril) 10 mg PO DAILY [facility] Last Admin: 05/24/18 11:30 Dose: 10 mg Metformin HCl (Glucophage) 500 mg PO BID [facility] Last Admin: 05/24/18 18:15 Dose: 500 mg Multivitamins/Minerals (Therapeutic-M Tab) 1 tab PO 0800 [facility] Last Admin: 05/24/18 11:29 Dose: 1 tab Thiamine HCl (Vitamin B1 Tab) 100 mg PO DAILY [facility] Last Admin: 05/23/18 09:34 Dose: 100 mg - Labs Labs: 05/19/18 06:00 05/19/18 06:00 PT 12.5 SECONDS (9.4-12.5) 12/09/17 10:00 INR 1.09 (0.93-1.08) H 12/09/17 10:00 APTT 28.3 Seconds (25.1-36.5) 11/30/17 05:30 - Constitutional Appears: Chronically Ill - Head Exam Head Exam: NORMAL INSPECTION - ENT Exam ENT Exam: Mucous Membranes Moist - Neck Exam Neck Exam: absent: Meningismus - Respiratory Exam Respiratory Exam: Decreased Breath Sounds - Cardiovascular Exam Cardiovascular Exam: +S1, +S2 - GI/Abdominal Exam GI & Abdominal Exam: Soft. absent: Tenderness Assessment and Plan - Assessment and Plan (Free Text) Plan: Assessment S/P systemic inflammatory response syndrome, with no evidence of sepsis or infection, resolved S/P sepsis due to strep viridans and CoNS bacteremia from right gluteal and back cellulitis S/P multifocal HCAP on top of Influenza A infection S/P Sammie infection of sacral area as well peripheral vascular disease Plan continue to monitor clinically off antibiotics since he is at risk for nosocomial infections - repeat blood cx are negative, PCT is normal urine culture shows contamination - follow up further plans for the liver masses noted on ultrasound abdomen
[2018-05-26] MEDS: Insulin Reg-LOW-Coverage SC SCH (07:29)
--- NOTE | 2018-05-26 09:46 | CP.PCM.PN ---
<Car Nicholson - Last Filed: 05/26/18 09:41> Subjective - Date & Time of Evaluation Date of Evaluation: 05/26/18 Time of Evaluation: 09:41 - Subjective Subjective: Podiatry Progress Note for Dr. Oakley 58M seen at bedside for right anterior ankle ulceration and left ankle abrasion. Patient is AAO x 3 and NAD at time of visit. Patient denies any pain to his wounds at this time. Denies any acute overnight events or new pedal complaints. Denies any recent N/V/F/C/CP/SOB/D/posterior calf pain when squeezed. No heel offloading boots noted to feet at this time. Objective - Vital Signs/Intake and Output Vital Signs (last 24 hours): Temp Pulse Resp BP Pulse Ox 98.0 F 80 20 124/76 96 05/26/18 06:00 05/26/18 06:00 05/26/18 06:00 05/26/18 06:00 05/26/18 06:00 Intake and Output: 05/26/18 05/26/18 06:59 18:59 Intake Total 960 Balance 960 - Labs Labs: 05/25/18 06:05 05/25/18 06:05 PT 12.5 SECONDS (9.4-12.5) 12/09/17 10:00 INR 1.09 (0.93-1.08) H 12/09/17 10:00 APTT 28.3 Seconds (25.1-36.5) 11/30/17 05:30 - Constitutional Appears: Well, Non-toxic, No Acute Distress - Extremities Exam Additional comments: B/L Lower extremity exam: VASC: DP and PT faintly palpable b/l, CFT delayed > 3 seconds x 10 digits, temperature gradient cool to cool, no edema noted to the lower extremities NEURO: Epicritic and protective sensation grossly intact b/l DERM: Ulceration noted to the anterior aspect of right ankle at the level of the ankle joint measuring approximately 2 cm x 1 cm x 0.1 cm with mostly fibrotic wound base and small central eschar. Minimal periwound erythema noted. No streaking, no drainage, no tunneling, no abscess, no odor or drainage, no fluctuance noted, no other clinical signs of infection. No probe to bone. Abrasion noted to left anterior ankle measuring 0.1 cm x 0.1 cm with stable overlying eschar. No clinical signs of infection or break in skin appreciated ORTHO: no pain with palpation to the entire lower extremity, no calf pain or tenderness appreciated, unable to assess MMT secondary to patient's cooperation - Neurological Exam Neurological Exam: Alert, Awake, Oriented x3 - Psychiatric Exam Psychiatric exam: Normal Affect, Normal Mood Assessment and Plan - Assessment and Plan (Free Text) Assessment: 58M seen at bedside for right anterior ankle ulceration and left ankle abrasion Plan: Patient seen and evaluated Plan discussed with Dr. Oakley Afebrile, absent leukocytosis Dressing changed with Santyl, optifoam, kirlix to right and optifoam to left No plan for surgical intervention at this time Podiatry will continue to follow while patient in house <Ivania Oakley - Last Filed: 06/19/18 18:23> Objective - Vital Signs/Intake and Output Vital Signs (last 24 hours): Temp Pulse Resp BP Pulse Ox 98.3 F 86 20 107/69 94 L 06/19/18 16:42 06/19/18 16:42 06/19/18 16:42 06/19/18 16:42 06/19/18 16:42 Intake and Output: 06/19/18 06/19/18 06:59 18:59 Intake Total 50 Balance 50 - Medications Medications: Current Medications Aspirin (Aspirin Chewable) 81 mg PO DAILY [facility] Last Admin: 06/19/18 10:20 Dose: 81 mg Citalopram Hydrobromide (Celexa) 10 mg PO DAILY [facility] Last Admin: 06/19/18 10:21 Dose: 10 mg Collagenase (Santyl) 0 gm TOP DAILY [facility] Last Admin: 06/19/18 10:23 Dose: 1 applic Insulin Human Lispro (Humalog Low) 0 units SC ACHS [facility] PRN Reason: Protocol Last Admin: 06/19/18 17:47 Dose: 1 units Lisinopril (Zestril) 10 mg PO DAILY [facility] Last Admin: 06/19/18 10:21 Dose: Not Given Pantoprazole Sodium (Protonix Ec Tab) 40 mg PO 0600 [facility] Last Admin: 06/19/18 05:53 Dose: 40 mg Thiamine HCl (Vitamin B1 Tab) 100 mg PO DAILY [facility] Last Admin: 06/19/18 10:20 Dose: 100 mg - Labs Labs: 08/30/18 10:30 06/14/18 06:00 PT 12.5 SECONDS (9.4-12.5) 12/09/17 10:00 INR 1.09 (0.93-1.08) H 12/09/17 10:00 APTT 28.3 Seconds (25.1-36.5) 11/30/17 05:30 Attending/Attestation - Attestation I have personally seen and examined this patient.: Yes I have fully participated in the care of the patient.: Yes I have reviewed all pertinent clinical information, including history, physical exam and plan: Yes
--- NOTE | 2018-05-26 12:18 | CP.PCM.PN ---
Subjective - Date & Time of Evaluation Date of Evaluation: 05/26/18 Time of Evaluation: 09:35 - Subjective Subjective: Afebrile, comfortable in bed. Objective - Vital Signs/Intake and Output Vital Signs (last 24 hours): Temp Pulse Resp BP Pulse Ox 98 F 86 20 103/64 96 05/25/18 16:54 05/25/18 16:54 05/25/18 16:54 05/25/18 16:54 05/25/18 16:54 Intake and Output: 05/25/18 05/25/18 06:59 18:59 Intake Total 180 Balance 180 - Medications Medications: Current Medications Insulin Human Regular (Humulin R Low) 0 units SC ACHS [facility] PRN Reason: Protocol Last Admin: 05/25/18 17:32 Dose: Not Given Metformin HCl (Glucophage) 500 mg PO BID [facility] Last Admin: 05/25/18 10:34 Dose: 500 mg - Labs Labs: 05/25/18 06:05 05/25/18 06:05 PT 12.5 SECONDS (9.4-12.5) 12/09/17 10:00 INR 1.09 (0.93-1.08) H 12/09/17 10:00 APTT 28.3 Seconds (25.1-36.5) 11/30/17 05:30 - Constitutional Appears: Chronically Ill - Head Exam Head Exam: NORMAL INSPECTION - Neck Exam Neck Exam: absent: Meningismus - Respiratory Exam Respiratory Exam: Decreased Breath Sounds - Cardiovascular Exam Cardiovascular Exam: +S1, +S2 - GI/Abdominal Exam GI & Abdominal Exam: Soft. absent: Tenderness Assessment and Plan - Assessment and Plan (Free Text) Plan: Assessment S/P systemic inflammatory response syndrome, with no evidence of sepsis or infection, resolved S/P sepsis due to strep viridans and CoNS bacteremia from right gluteal and back cellulitis S/P multifocal HCAP on top of Influenza A infection S/P Sammie infection of sacral area as well peripheral vascular disease Plan continue to monitor clinically off antibiotics since he is at risk for hospital- acquired infections - repeat blood cx are negative, PCT is normal urine culture shows contamination - follow up further plans for the liver masses noted on ultrasound abdomen
[2018-05-26] MEDS: Ferrous Sulfate 300 mg/5 mL Liq UD PO SCH ×2 (12:24→17:37)
--- NOTE | 2018-05-26 16:46 | CP.PCM.PN ---
<MikelMariano - Last Filed: 05/26/18 16:42> Subjective - Date & Time of Evaluation Date of Evaluation: 05/26/18 Time of Evaluation: 16:42 - Subjective Subjective: Mariano Morin DO PGY1 - Hospital Progress NO new complaints this AM; On hospital day 178. Denies F, CHills, SOB, CP, Abd pain, N/V/D/C. Pt is at baseline, no issues reported by nursing. Objective - Vital Signs/Intake and Output Vital Signs (last 24 hours): Temp Pulse Resp BP Pulse Ox 98 F 89 18 137/77 97 05/26/18 16:08 05/26/18 16:08 05/26/18 16:08 05/26/18 16:08 05/26/18 16:08 Intake and Output: 05/26/18 05/26/18 06:59 18:59 Intake Total 960 Balance 960 - Medications Medications: Current Medications Ferrous Sulfate (Feosol Liq) 300 mg PO BID [facility] Last Admin: 05/26/18 12:24 Dose: 300 mg - Labs Labs: 05/25/18 06:05 05/25/18 06:05 PT 12.5 SECONDS (9.4-12.5) 12/09/17 10:00 INR 1.09 (0.93-1.08) H 12/09/17 10:00 APTT 28.3 Seconds (25.1-36.5) 11/30/17 05:30 Physical Exam - Constitutional Appears: Non-toxic, No Acute Distress, Awake at baseline - Head Exam Head Exam: ATRAUMATIC, NORMAL INSPECTION, NORMOCEPHALIC - Eye Exam Eye Exam: EOMI, Normal appearance, PERRL - ENT Exam ENT Exam: Mucous Membranes Moist, Normal Oropharynx - Neck Exam Neck Exam: Full ROM, Normal Inspection - Respiratory Exam Respiratory Exam: Clear to Ausculation Bilateral, NORMAL BREATHING PATTERN, no rales, wheezes or rhonchi - Cardiovascular Exam Cardiovascular Exam: REGULAR RHYTHM, +S1, +S2 - GI/Abdominal Exam GI & Abdominal Exam: Soft, Normal Bowel Sounds - Extremities Exam Extremities Exam: Normal Capillary Refill, Normal Inspection Additional comments: R foot bandaged; dressing is clean dry and intact; Dressing from L foot removed - Back Exam Back Exam: NORMAL INSPECTION - Neurological Exam Neurological Exam: Alert, Awake Additional comments: Oriented x2 - Psychiatric Exam Psychiatric exam: Flat Affect, Indifferent to questions this AM; short one word responses. - Skin Skin Exam: Dry, Intact, Warm Assessment and Plan - Assessment and Plan (Free Text) Assessment: 57 year old male unknown PMHx admitted on 11/29/17 for AMS, right hip cellulitis , multifocal pneumonia, influenza A, strep viridians bacteremia with findings of stroke on MRI - acute vs. 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 Patient was treated for bacteremia with IV abx. Guardianship establishment pending court date, which was rescheduled for May 28. Plan: Anemia: H/H slowly downtrending over hospitalization; patient has had + heme occult test as well as known colonic polyp Most likely Fe+ deficiency in nature Patient with a microcytic anemia Iron level low TIBC wnl Retic count pending Started ferrous sulfate PO BID 05/26 Altered mental status At baseline this AM Cont. delirium precautions PT -patient refusing to participate Cont ASA 81 QD / LIPITOR 20 QD Dorsal Right Foot Ulcer Bandaged. Non purulent. Podiatry recommendations appreciated Wound care following On [facility] No antibiotics warranted at this time per ID Coag negative Staphylococcus bacteremia - resolved Last bld clx negative 12/04/17 with completion of 6 week course of antibiotics Monitor WBC, ESR, CRP weekly Echocardiogram unable to rule out vegetations, family is unavailable for consent for TAHIR Colonic mass CT Abd/Pelvis showing colonic mass and hepatic lesions GI consulted: follow recs Flex sig/colonoscopy refused by patient Family unable to be contacted for consent Diabetes mellitus type 2 Cont RISS low Cont Metformin 500mg BID Cont accuchecks Carb consistent diet HTN BP Stable, continue to monitor Cont Lisinopril 10 QD Cont Amlodipine 10 mg PO QD Leukocytosis - RESOLVED WBC elevated 05/17 Patient srinivasan cultured Blood cx negative x2 after 48H Urine cx w/ multiple species ML contaminated Abd U/S - 7mm common bile duct dilatation and gallstones; Hepatic lesions measuring up to 4.9cm and 3.8 cm; compared to prev abd U/S from 12/05 lesions measured 4.1cm and 3.1cm No RUQ tenderness appreciated on exam; ID following, appreciate reccs Affective disorder Cont Celexa 10mg PO Daily Constipation Colace 100mg BID Miralax 17gm BID Discontinued Lactulose Hx ETOH Abuse Cont Thiamine Cont Folic Acid Cont Multivitamin DVT Prophylaxis: SCDs Dispo: Patient continues to display a lack of decision making capacity: Guardianship status to be determined; Court date for guardianship postponed to May 28 2018. Pt. seen, examined, and discussed with attending physician Dr. Endy Morin DO PGY1 Internal Medicine [employer] - Pager [phone] <Deanna Schumacher - Last Filed: 05/26/18 17:09> Objective - Vital Signs/Intake and Output Vital Signs (last 24 hours): Temp Pulse Resp BP Pulse Ox 98 F 89 18 137/77 97 05/26/18 16:08 05/26/18 16:08 05/26/18 16:08 05/26/18 16:08 05/26/18 16:08 Intake and Output: 05/26/18 05/26/18 06:59 18:59 Intake Total 960 Balance 960 - Medications Medications: Current Medications Ferrous Sulfate (Feosol Liq) 300 mg PO BID [facility] Last Admin: 05/26/18 12:24 Dose: 300 mg - Labs Labs: 05/25/18 06:05 05/25/18 06:05 PT 12.5 SECONDS (9.4-12.5) 12/09/17 10:00 INR 1.09 (0.93-1.08) H 12/09/17 10:00 APTT 28.3 Seconds (25.1-36.5) 11/30/17 05:30 Attending/Attestation - Attestation I have personally seen and examined this patient.: Yes I have fully participated in the care of the patient.: Yes I have reviewed all pertinent clinical information, including history, physical exam and plan: Yes Notes (Text): 05/26/18 17:09 Medical record note made by the resident after discussion with my direction and input after the patient was personally seen and examined by me. I have reviewed the chart and agree that the record accurately reflects by personal performance of the history, physical exam, data review, and medical decision-making, in the course for the patient. I have also personally directed the plan of care.
--- NOTE | 2018-05-27 10:34 | CP.PCM.PN ---
Subjective - Date & Time of Evaluation Date of Evaluation: 05/27/18 Time of Evaluation: 10:33 Objective - Vital Signs/Intake and Output Vital Signs (last 24 hours): Temp Pulse Resp BP Pulse Ox 97.4 F L 85 20 126/80 97 05/27/18 08:24 05/27/18 08:24 05/27/18 08:24 05/27/18 08:24 05/27/18 08:24 Intake and Output: 05/27/18 05/27/18 06:59 18:59 Intake Total 1440 Output Total 2 Balance 1438 - Medications Medications: Current Medications Ferrous Sulfate (Feosol Liq) 300 mg PO BID [facility] Last Admin: 05/26/18 17:37 Dose: 300 mg - Labs Labs: 05/25/18 06:05 05/25/18 06:05 PT 12.5 SECONDS (9.4-12.5) 12/09/17 10:00 INR 1.09 (0.93-1.08) H 12/09/17 10:00 APTT 28.3 Seconds (25.1-36.5) 11/30/17 05:30
[2018-05-27] MEDS: Ferrous Sulfate 300 mg/5 mL Liq UD PO SCH ×2 (10:51→17:43)
--- NOTE | 2018-05-27 12:39 | CP.PCM.PN ---
Subjective - Date & Time of Evaluation Date of Evaluation: 05/27/18 Time of Evaluation: 10:00 - Subjective Subjective: Comfortable in bed, no fevers, not in distress, no vomiting, no diarrhea. Objective - Vital Signs/Intake and Output Vital Signs (last 24 hours): Temp Pulse Resp BP Pulse Ox 98.0 F 80 20 124/76 96 05/26/18 06:00 05/26/18 06:00 05/26/18 06:00 05/26/18 06:00 05/26/18 06:00 Intake and Output: 05/26/18 05/26/18 06:59 18:59 Intake Total 960 Balance 960 - Medications Medications: Current Medications Ferrous Sulfate (Feosol Liq) 300 mg PO BID [facility] - Labs Labs: 05/25/18 06:05 05/25/18 06:05 PT 12.5 SECONDS (9.4-12.5) 12/09/17 10:00 INR 1.09 (0.93-1.08) H 12/09/17 10:00 APTT 28.3 Seconds (25.1-36.5) 11/30/17 05:30 - Constitutional Appears: Non-toxic, Chronically Ill - Head Exam Head Exam: NORMAL INSPECTION - Respiratory Exam Respiratory Exam: Decreased Breath Sounds - Cardiovascular Exam Cardiovascular Exam: +S1, +S2 - GI/Abdominal Exam GI & Abdominal Exam: Soft. absent: Tenderness Assessment and Plan - Assessment and Plan (Free Text) Plan: Assessment S/P systemic inflammatory response syndrome, with no evidence of sepsis or infection, resolved S/P sepsis due to strep viridans and CoNS bacteremia from right gluteal and back cellulitis S/P multifocal HCAP on top of Influenza A infection S/P Sammie infection of sacral area as well peripheral vascular disease Plan continue to monitor clinically off antibiotics since he is at risk for [facility]-associated infections - repeat blood cx are negative, PCT is normal urine culture shows contamination - follow up further plans for the liver masses noted on ultrasound abdomen
--- NOTE | 2018-05-27 13:41 | CP.PCM.PN ---
<Mariano Morin - Last Filed: 05/27/18 13:38> Subjective - Date & Time of Evaluation Date of Evaluation: 05/27/18 Time of Evaluation: 13:38 - Subjective Subjective: Mariano Morin DO PGY1 Internal Medicine Software Development Advisor - Hospital Progress Note Pt. seen and examined at bedside today; no issues reported overnight. NO acute complaints voiced by patient atthis time. 12 system ROS negative; patient is at baseline. Objective - Vital Signs/Intake and Output Vital Signs (last 24 hours): Temp Pulse Resp BP Pulse Ox 97.4 F L 85 20 126/80 97 05/27/18 08:24 05/27/18 08:24 05/27/18 08:24 05/27/18 08:24 05/27/18 08:24 Intake and Output: 05/27/18 05/27/18 06:59 18:59 Intake Total 1440 Output Total 2 Balance 1438 - Medications Medications: Current Medications Ferrous Sulfate (Feosol Liq) 300 mg PO BID [facility] Last Admin: 05/27/18 10:51 Dose: 300 mg - Labs Labs: 05/25/18 06:05 05/25/18 06:05 PT 12.5 SECONDS (9.4-12.5) 12/09/17 10:00 INR 1.09 (0.93-1.08) H 12/09/17 10:00 APTT 28.3 Seconds (25.1-36.5) 11/30/17 05:30 Physical Exam - Constitutional Appears: Non-toxic, No Acute Distress, Awake at baseline - Head Exam Head Exam: ATRAUMATIC, NORMAL INSPECTION, NORMOCEPHALIC - Eye Exam Eye Exam: EOMI, Normal appearance, PERRL - ENT Exam ENT Exam: Mucous Membranes Moist, Normal Oropharynx - Neck Exam Neck Exam: Full ROM, Normal Inspection - Respiratory Exam Respiratory Exam: Clear to Ausculation Bilateral, NORMAL BREATHING PATTERN, no rales, wheezes or rhonchi - Cardiovascular Exam Cardiovascular Exam: REGULAR RHYTHM, +S1, +S2 - GI/Abdominal Exam GI & Abdominal Exam: Soft, Normal Bowel Sounds - Extremities Exam Extremities Exam: Normal Capillary Refill, Normal Inspection Additional comments: R foot bandaged; dressing is clean dry and intact; Dressing on L foot present - Back Exam Back Exam: NORMAL INSPECTION - Neurological Exam Neurological Exam: Alert, Awake Additional comments: Oriented x2 - Psychiatric Exam Psychiatric exam: Flat Affect, Indifferent to questions this AM; short one word responses. - Skin Skin Exam: Dry, Intact, Warm Assessment and Plan - Assessment and Plan (Free Text) Assessment: 57 year old male unknown PMHx admitted on 11/29/17 for AMS, right hip cellulitis , multifocal pneumonia, influenza A, strep viridians bacteremia with findings of stroke on MRI - acute vs. 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 Patient was treated for bacteremia with IV abx. Guardianship establishment pending court date, which was rescheduled for May 28. Plan: Anemia: H/H slowly downtrending over hospitalization; patient has had + heme occult test as well as known colonic polyp Most likely Fe+ deficiency in nature Patient with a microcytic anemia Iron level low TIBC wnl Retic count pending Started ferrous sulfate PO BID 05/26 Continue monitoring for constipation given new onset iron supplement Altered mental status At baseline this AM Cont. delirium precautions PT -patient refusing to participate Cont ASA 81 QD / LIPITOR 20 QD Dorsal Right Foot Ulcer Bandaged. Non purulent. Podiatry recommendations appreciated Wound care following On [facility] No antibiotics warranted at this time per ID Coag negative Staphylococcus bacteremia - resolved Last bld clx negative 12/04/17 with completion of 6 week course of antibiotics Monitor WBC, ESR, CRP weekly Echocardiogram unable to rule out vegetations, family is unavailable for consent for TAHIR Colonic mass CT Abd/Pelvis showing colonic mass and hepatic lesions GI consulted: follow recs Flex sig/colonoscopy refused by patient Family unable to be contacted for consent Diabetes mellitus type 2 Cont RISS low Cont Metformin 500mg BID Cont accuchecks Carb consistent diet HTN BP Stable, continue to monitor Cont Lisinopril 10 QD Cont Amlodipine 10 mg PO QD Leukocytosis - RESOLVED WBC elevated 05/17 Patient srinivasan cultured Blood cx negative x2 after 48H Urine cx w/ multiple species ML contaminated Abd U/S - 7mm common bile duct dilatation and gallstones; Hepatic lesions measuring up to 4.9cm and 3.8 cm; compared to prev abd U/S from 12/05 lesions measured 4.1cm and 3.1cm No RUQ tenderness appreciated on exam; ID following, appreciate reccs Affective disorder Cont Celexa 10mg PO Daily Constipation Colace 100mg BID Miralax 17gm BID Discontinued Lactulose Hx ETOH Abuse Cont Thiamine Cont Folic Acid Cont Multivitamin DVT Prophylaxis: SCDs Dispo: Patient continues to display a lack of decision making capacity: Guardianship status to be determined; Court date for guardianship postponed to May 28 2018. Pt. seen, examined, and discussed with attending physician Dr. Endy Morin DO PGY1 Internal Medicine Software Development Advisor - Pager [phone] <Deanna Schumacher - Last Filed: 05/28/18 12:04> Objective - Vital Signs/Intake and Output Vital Signs (last 24 hours): Temp Pulse Resp BP Pulse Ox 97.7 F 78 18 132/82 98 05/28/18 07:58 05/28/18 07:58 05/28/18 07:58 05/28/18 07:58 05/28/18 07:58 Intake and Output: 05/28/18 05/28/18 06:59 18:59 Intake Total 1800 Balance 1800 - Medications Medications: Current Medications Aspirin (Aspirin Chewable) 81 mg PO DAILY [facility] Atorvastatin Calcium (Lipitor) 20 mg PO DIN [facility] Citalopram Hydrobromide (Celexa) 10 mg PO DAILY [facility] Collagenase (Santyl) 0 gm TOP DAILY [facility] Ferrous Sulfate (Feosol Liq) 300 mg PO BID [facility] Last Admin: 05/28/18 11:51 Dose: 300 mg Insulin Human Lispro (Humalog Low) 0 units SC ACHS [facility] PRN Reason: Protocol Last Admin: 05/28/18 11:56 Dose: 1 u Lisinopril (Zestril) 10 mg PO DAILY [facility] Metformin HCl (Glucophage) 500 mg PO BID [facility] Mupirocin (Bactroban Ointment) 0 gm TOP BID [facility] Pantoprazole Sodium (Protonix Ec Tab) 40 mg PO 0600 [facility] Thiamine HCl (Vitamin B1 Tab) 100 mg PO DAILY [facility] - Labs Labs: 05/25/18 06:05 05/25/18 06:05 PT 12.5 SECONDS (9.4-12.5) 12/09/17 10:00 INR 1.09 (0.93-1.08) H 12/09/17 10:00 APTT 28.3 Seconds (25.1-36.5) 11/30/17 05:30 Attending/Attestation - Attestation I have personally seen and examined this patient.: Yes I have fully participated in the care of the patient.: Yes I have reviewed all pertinent clinical information, including history, physical exam and plan: Yes Notes (Text): 05/28/18 12:04 Medical record note made by the resident after discussion with my direction and input after the patient was personally seen and examined by me. I have reviewed the chart and agree that the record accurately reflects by personal performance of the history, physical exam, data review, and medical decision-making, in the course for the patient. I have also personally directed the plan of care. Patient is stable at his base line.There is no overnight issue.He is awaiting guardianship paper work before placement. Prognosis is guarded.
[2018-05-27] MEDS: Insulin Reg-LOW-Coverage SC SCH (17:44)
[2018-05-27] MEDS: Insulin Lispro (humaLOG) LOW Coverage SC SCH (22:15)
[2018-05-28] MEDS: Insulin Lispro (humaLOG) LOW Coverage SC SCH ×4 (07:51→22:20)
--- NOTE | 2018-05-28 08:12 | CP.PCM.PN ---
<Mariano Morin - Last Filed: 05/28/18 10:49> Subjective - Date & Time of Evaluation Date of Evaluation: 05/28/18 Time of Evaluation: 08:11 - Subjective Subjective: Mariano Morin DO PGY1 Internal Medicine Rf Design Engineer - Hospital Progress Note Pt. seen and evalued at bedside this AM. NAEON NO complaints voiced at this time 12 system ROS negative Patient is at baseline Objective - Vital Signs/Intake and Output Vital Signs (last 24 hours): Temp Pulse Resp BP Pulse Ox 97.7 F 78 18 132/82 98 05/28/18 07:58 05/28/18 07:58 05/28/18 07:58 05/28/18 07:58 05/28/18 07:58 Intake and Output: 05/28/18 05/28/18 06:59 18:59 Intake Total 1800 Balance 1800 - Medications Medications: Current Medications Ferrous Sulfate (Feosol Liq) 300 mg PO BID [facility] Last Admin: 05/27/18 17:43 Dose: 300 mg Insulin Human Lispro (Humalog Low) 0 units SC ACHS [facility] PRN Reason: Protocol Last Admin: 05/27/18 22:15 Dose: Not Given - Labs Labs: 05/25/18 06:05 05/25/18 06:05 PT 12.5 SECONDS (9.4-12.5) 12/09/17 10:00 INR 1.09 (0.93-1.08) H 12/09/17 10:00 APTT 28.3 Seconds (25.1-36.5) 11/30/17 05:30 Physical Exam - Constitutional Appears: Non-toxic, No Acute Distress, Awake at baseline - Head Exam Head Exam: ATRAUMATIC, NORMAL INSPECTION, NORMOCEPHALIC - Eye Exam Eye Exam: EOMI, Normal appearance, PERRL - ENT Exam ENT Exam: Mucous Membranes Moist, Normal Oropharynx - Neck Exam Neck Exam: Full ROM, Normal Inspection - Respiratory Exam Respiratory Exam: Clear to Ausculation Bilateral, NORMAL BREATHING PATTERN, no rales, wheezes or rhonchi - Cardiovascular Exam Cardiovascular Exam: REGULAR RHYTHM, +S1, +S2 - GI/Abdominal Exam GI & Abdominal Exam: Soft, Normal Bowel Sounds - Extremities Exam Extremities Exam: Normal Capillary Refill, Normal Inspection Additional comments: R foot bandaged; dressing is clean dry and intact; Dressing on L foot present - Back Exam Back Exam: NORMAL INSPECTION - Neurological Exam Neurological Exam: Alert, Awake Additional comments: Oriented x2 - Psychiatric Exam Psychiatric exam: Flat Affect, Indifferent to questions this AM; short one word responses. - Skin Skin Exam: Dry, Intact, Warm Assessment and Plan - Assessment and Plan (Free Text) Assessment: 57 year old male unknown PMHx admitted on 11/29/17 for AMS, right hip cellulitis , multifocal pneumonia, influenza A, strep viridians bacteremia with findings of stroke on MRI - acute vs. 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 Patient was treated for bacteremia with IV abx. Guardianship establishment pending court date, which was rescheduled for May 28. Plan: Anemia: H/H slowly downtrending over hospitalization; patient has had + heme occult test as well as known colonic polyp Most likely Fe+ deficiency in nature Patient with a microcytic anemia Iron level low TIBC wnl Retic count pending Started ferrous sulfate PO BID 05/26 Continue monitoring for constipation given new onset iron supplement Altered mental status At baseline this AM Cont. delirium precautions PT -patient refusing to participate Cont ASA 81 QD / LIPITOR 20 QD Dorsal Right Foot Ulcer Bandaged. Non purulent. Podiatry recommendations appreciated Wound care following On [facility] No antibiotics warranted at this time per ID Coag negative Staphylococcus bacteremia - resolved Last bld clx negative 12/04/17 with completion of 6 week course of antibiotics Monitor WBC, ESR, CRP weekly Echocardiogram unable to rule out vegetations, family is unavailable for consent for TAHIR Colonic mass CT Abd/Pelvis showing colonic mass and hepatic lesions GI consulted: follow recs Flex sig/colonoscopy refused by patient Family unable to be contacted for consent Diabetes mellitus type 2 Cont RISS low Cont Metformin 500mg BID Cont accuchecks Carb consistent diet HTN BP Stable, continue to monitor Cont Lisinopril 10 QD Cont Amlodipine 10 mg PO QD Leukocytosis - RESOLVED WBC elevated 05/17 Patient srinivasan cultured Blood cx negative x2 after 48H Urine cx w/ multiple species ML contaminated Abd U/S - 7mm common bile duct dilatation and gallstones; Hepatic lesions measuring up to 4.9cm and 3.8 cm; compared to prev abd U/S from 12/05 lesions measured 4.1cm and 3.1cm No RUQ tenderness appreciated on exam; ID following, appreciate reccs Affective disorder Cont Celexa 10mg PO Daily Constipation Colace 100mg BID Miralax 17gm BID Discontinued Lactulose Hx ETOH Abuse Cont Thiamine Cont Folic Acid Cont Multivitamin DVT Prophylaxis: SCDs Dispo: Patient continues to display a lack of decision making capacity: Guardianship status to be determined; Court date for guardianship postponed to May 28 2018. Pt. seen, examined, and discussed with attending physician Dr. Endy Morin DO PGY1 Internal Medicine Rf Design Engineer - Pager [phone] <Deanna Schumacher - Last Filed: 05/28/18 12:05> Objective - Vital Signs/Intake and Output Vital Signs (last 24 hours): Temp Pulse Resp BP Pulse Ox 97.7 F 78 18 132/82 98 05/28/18 07:58 05/28/18 07:58 05/28/18 07:58 05/28/18 07:58 05/28/18 07:58 Intake and Output: 05/28/18 05/28/18 06:59 18:59 Intake Total 1800 Balance 1800 - Medications Medications: Current Medications Aspirin (Aspirin Chewable) 81 mg PO DAILY [facility] Atorvastatin Calcium (Lipitor) 20 mg PO DIN [facility] Citalopram Hydrobromide (Celexa) 10 mg PO DAILY [facility] Collagenase (Santyl) 0 gm TOP DAILY [facility] Ferrous Sulfate (Feosol Liq) 300 mg PO BID [facility] Last Admin: 05/28/18 11:51 Dose: 300 mg Insulin Human Lispro (Humalog Low) 0 units SC ACHS [facility] PRN Reason: Protocol Last Admin: 05/28/18 11:56 Dose: 1 u Lisinopril (Zestril) 10 mg PO DAILY [facility] Metformin HCl (Glucophage) 500 mg PO BID [facility] Mupirocin (Bactroban Ointment) 0 gm TOP BID [facility] Pantoprazole Sodium (Protonix Ec Tab) 40 mg PO 0600 [facility] Thiamine HCl (Vitamin B1 Tab) 100 mg PO DAILY [facility] - Labs Labs: 05/25/18 06:05 05/25/18 06:05 PT 12.5 SECONDS (9.4-12.5) 12/09/17 10:00 INR 1.09 (0.93-1.08) H 12/09/17 10:00 APTT 28.3 Seconds (25.1-36.5) 11/30/17 05:30 Attending/Attestation - Attestation I have personally seen and examined this patient.: Yes I have fully participated in the care of the patient.: Yes I have reviewed all pertinent clinical information, including history, physical exam and plan: Yes Notes (Text): 05/28/18 12:04 Medical record note made by the resident after discussion with my direction and input after the patient was personally seen and examined by me. I have reviewed the chart and agree that the record accurately reflects by personal performance of the history, physical exam, data review, and medical decision-making, in the course for the patient. I have also personally directed the plan of care. Patient is stable at his base line.There is no overnight issue.He is awaiting guardianship paper work before placement. Anemia is stable.Patient was advised to ambulate but he is refusing. Prognosis is guarded.
--- NOTE | 2018-05-28 08:26 | CP.PCM.PN ---
<AlvinoLiliam - Last Filed: 05/28/18 10:23> Subjective - Date & Time of Evaluation Date of Evaluation: 05/28/18 Time of Evaluation: 08:25 - Subjective Subjective: Podiatry Progress Note for Dr. Davis 58 y/o male seen and evaluated at bedside for right anterior ankle ulceration and left ankle abrasion. Patient is AAO x 3 and NAD at time of visit. Denies any acute overnight events or new pedal complaints. No heel offloading boots noted to feet at this time. Unable to obtain history from patient Objective - Vital Signs/Intake and Output Vital Signs (last 24 hours): Temp Pulse Resp BP Pulse Ox 97.7 F 78 18 132/82 98 05/28/18 07:58 05/28/18 07:58 05/28/18 07:58 05/28/18 07:58 05/28/18 07:58 Intake and Output: 05/28/18 05/28/18 06:59 18:59 Intake Total 1800 Balance 1800 - Medications Medications: Current Medications Ferrous Sulfate (Feosol Liq) 300 mg PO BID [facility] Last Admin: 05/27/18 17:43 Dose: 300 mg Insulin Human Lispro (Humalog Low) 0 units SC ACHS [facility] PRN Reason: Protocol Last Admin: 05/27/18 22:15 Dose: Not Given - Labs Labs: 05/25/18 06:05 05/25/18 06:05 PT 12.5 SECONDS (9.4-12.5) 12/09/17 10:00 INR 1.09 (0.93-1.08) H 12/09/17 10:00 APTT 28.3 Seconds (25.1-36.5) 11/30/17 05:30 - Constitutional Appears: Well, Non-toxic, No Acute Distress - Head Exam Head Exam: ATRAUMATIC, NORMOCEPHALIC - Extremities Exam Additional comments: B/L Lower extremity exam: VASC: DP and PT faintly palpable b/l, CFT delayed > 3 seconds x 10 digits, temperature gradient cool to cool, no edema noted to the lower extremities NEURO: Epicritic and protective sensation grossly intact b/l DERM: Ulceration noted to the anterior aspect of right ankle at the level of the ankle joint measuring approximately 2 cm x 1 cm x 0.1 cm with mostly fibrotic wound base and small central eschar. Minimal periwound erythema noted. No streaking, no drainage, no tunneling, no abscess, no odor or drainage, no fluctuance noted, no other clinical signs of infection. No probe to bone. Abrasion noted to left anterior ankle, No clinical signs of infection or break in skin appreciated ORTHO: no pain with palpation to the entire lower extremity, no calf pain or tenderness appreciated, unable to assess MMT secondary to patient's cooperation - Neurological Exam Neurological Exam: Alert, Awake, Oriented x3 - Psychiatric Exam Psychiatric exam: Normal Affect, Normal Mood Assessment and Plan - Assessment and Plan (Free Text) Assessment: 58 y/o male seen at bedside for right anterior ankle ulceration and left ankle abrasion Plan: Patient seen and evaluated at bedside with Dr. Davis Chart, labs and vitals reviewed Afebrile, absent leukocytosis Patient Right ankle wound cleased with saline Santyl will be discontinued and Bactroban will be ordered Right wound dressed with Optifoam and Kerlix Left Ankle dressed with Optifoam No plan for surgical intervention at this time Podiatry will continue to follow while patient in house <Raciel Davis - Last Filed: 05/28/18 13:48> Objective - Vital Signs/Intake and Output Vital Signs (last 24 hours): Temp Pulse Resp BP Pulse Ox 97.7 F 78 18 132/82 98 05/28/18 07:58 05/28/18 07:58 05/28/18 07:58 05/28/18 07:58 05/28/18 07:58 Intake and Output: 05/28/18 05/28/18 06:59 18:59 Intake Total 1800 Balance 1800 - Medications Medications: Current Medications Aspirin (Aspirin Chewable) 81 mg PO DAILY [facility] Atorvastatin Calcium (Lipitor) 20 mg PO DIN [facility] Citalopram Hydrobromide (Celexa) 10 mg PO DAILY [facility] Collagenase (Santyl) 0 gm TOP DAILY [facility] Ferrous Sulfate (Feosol Liq) 300 mg PO BID [facility] Last Admin: 05/28/18 11:51 Dose: 300 mg Insulin Human Lispro (Humalog Low) 0 units SC ACHS [facility] PRN Reason: Protocol Last Admin: 05/28/18 11:56 Dose: 1 u Lisinopril (Zestril) 10 mg PO DAILY [facility] Metformin HCl (Glucophage) 500 mg PO BID [facility] Mupirocin (Bactroban Ointment) 0 gm TOP BID [facility] Pantoprazole Sodium (Protonix Ec Tab) 40 mg PO 0600 [facility] Thiamine HCl (Vitamin B1 Tab) 100 mg PO DAILY [facility] - Labs Labs: 05/25/18 06:05 05/25/18 06:05 PT 12.5 SECONDS (9.4-12.5) 12/09/17 10:00 INR 1.09 (0.93-1.08) H 12/09/17 10:00 APTT 28.3 Seconds (25.1-36.5) 11/30/17 05:30 Attending/Attestation - Attestation I have personally seen and examined this patient.: Yes I have fully participated in the care of the patient.: Yes I have reviewed all pertinent clinical information, including history, physical exam and plan: Yes
[2018-05-28] MEDS: Ferrous Sulfate 300 mg/5 mL Liq UD PO SCH ×2 (11:51→19:37)
--- NOTE | 2018-05-28 15:43 | CP.PCM.PN ---
Subjective - Date & Time of Evaluation Date of Evaluation: 05/28/18 Time of Evaluation: 11:00 - Subjective Subjective: Comfortable in bed, no fevers, not in distress, no vomiting, no diarrhea. Objective - Vital Signs/Intake and Output Vital Signs (last 24 hours): Temp Pulse Resp BP Pulse Ox 97.4 F L 85 20 126/80 97 05/27/18 08:24 05/27/18 08:24 05/27/18 08:24 05/27/18 08:24 05/27/18 08:24 Intake and Output: 05/27/18 05/27/18 06:59 18:59 Intake Total 1440 Output Total 2 Balance 1438 - Medications Medications: Current Medications Ferrous Sulfate (Feosol Liq) 300 mg PO BID [facility] Last Admin: 05/27/18 10:51 Dose: 300 mg - Labs Labs: 05/25/18 06:05 05/25/18 06:05 PT 12.5 SECONDS (9.4-12.5) 12/09/17 10:00 INR 1.09 (0.93-1.08) H 12/09/17 10:00 APTT 28.3 Seconds (25.1-36.5) 11/30/17 05:30 - Constitutional Appears: Non-toxic, No Acute Distress, Chronically Ill - Head Exam Head Exam: NORMAL INSPECTION - Respiratory Exam Respiratory Exam: Decreased Breath Sounds - Cardiovascular Exam Cardiovascular Exam: +S1, +S2 - GI/Abdominal Exam GI & Abdominal Exam: Soft. absent: Tenderness Assessment and Plan - Assessment and Plan (Free Text) Plan: Assessment S/P systemic inflammatory response syndrome, with no evidence of sepsis or infection, resolved S/P sepsis due to strep viridans and CoNS bacteremia from right gluteal and back cellulitis S/P multifocal HCAP on top of Influenza A infection S/P Sammie infection of sacral area as well peripheral vascular disease Plan continue to monitor clinically off antibiotics since he is at risk for nosocomial infections - repeat blood cx are negative, PCT is normal urine culture shows contamination - follow up further plans for the liver masses noted on ultrasound abdomen
[2018-05-28] MEDS: Mupirocin 2% Ointment 15 GM TUBE TOP SCH (19:37)
[2018-05-29] MEDS: Pantoprazole 40 mg EC Tab PO SCH (05:35)
[2018-05-29] MEDS: Insulin Lispro (humaLOG) LOW Coverage SC SCH ×4 (08:00→22:05)
[2018-05-29] MEDS: Collagenase 250 Units/gm Ointment(30 gm) TOP SCH (09:50)
[2018-05-29] MEDS: Mupirocin 2% Ointment 15 GM TUBE TOP SCH ×2 (09:50→18:24)
[2018-05-29] MEDS: Ferrous Sulfate 300 mg/5 mL Liq UD PO SCH ×2 (09:50→18:24)
[2018-05-29] MEDS ORDERED: Enoxaparin 40 mg Syringe SC SCH (10:00)
--- NOTE | 2018-05-29 15:52 | CP.PCM.PN ---
<Mariano Morin - Last Filed: 05/29/18 15:48> Subjective - Date & Time of Evaluation Date of Evaluation: 05/29/18 Time of Evaluation: 15:49 - Subjective Subjective: Mariano Morin DO PGY1 - Internal Medicine Resident - Hospital Progress Note No issues reported overnight At baseline this AM 12 System ROS negative. Objective - Vital Signs/Intake and Output Vital Signs (last 24 hours): Temp Pulse Resp BP Pulse Ox 97.7 F 84 20 143/82 97 05/29/18 07:50 05/29/18 09:50 05/29/18 07:50 05/29/18 09:50 05/29/18 07:50 Intake and Output: 05/29/18 05/29/18 06:59 18:59 Intake Total 900 Balance 900 - Medications Medications: Current Medications Aspirin (Aspirin Chewable) 81 mg PO DAILY [facility] Last Admin: 05/29/18 09:50 Dose: 81 mg Atorvastatin Calcium (Lipitor) 20 mg PO DIN [facility] Last Admin: 05/28/18 19:38 Dose: 20 mg Citalopram Hydrobromide (Celexa) 10 mg PO DAILY [facility] Last Admin: 05/29/18 09:50 Dose: 10 mg Collagenase (Santyl) 0 gm TOP DAILY [facility] Last Admin: 05/29/18 09:50 Dose: 1 u Ferrous Sulfate (Feosol Liq) 300 mg PO BID [facility] Last Admin: 05/29/18 09:50 Dose: 300 mg Insulin Human Lispro (Humalog Low) 0 units SC [facility] PRN Reason: Protocol Last Admin: 05/29/18 11:51 Dose: 1 u Lisinopril (Zestril) 10 mg PO DAILY [facility] Last Admin: 05/29/18 09:50 Dose: 10 mg Metformin HCl (Glucophage) 500 mg PO BID [facility] Last Admin: 05/29/18 09:50 Dose: 500 mg Mupirocin (Bactroban Ointment) 0 gm TOP BID [facility] Last Admin: 05/29/18 09:50 Dose: 1 u Pantoprazole Sodium (Protonix Ec Tab) 40 mg PO 0600 [facility] Last Admin: 05/29/18 05:35 Dose: 40 mg Thiamine HCl (Vitamin B1 Tab) 100 mg PO DAILY [facility] Last Admin: 05/29/18 09:50 Dose: 100 mg - Labs Labs: 05/25/18 06:05 05/25/18 06:05 PT 12.5 SECONDS (9.4-12.5) 12/09/17 10:00 INR 1.09 (0.93-1.08) H 12/09/17 10:00 APTT 28.3 Seconds (25.1-36.5) 11/30/17 05:30 Physical Exam - Constitutional Appears: Non-toxic, No Acute Distress, Awake at baseline - Head Exam Head Exam: ATRAUMATIC, NORMAL INSPECTION, NORMOCEPHALIC - Eye Exam Eye Exam: EOMI, Normal appearance, PERRL - ENT Exam ENT Exam: Mucous Membranes Moist, Normal Oropharynx - Neck Exam Neck Exam: Full ROM, Normal Inspection - Respiratory Exam Respiratory Exam: Clear to Ausculation Bilateral, NORMAL BREATHING PATTERN, no rales, wheezes or rhonchi - Cardiovascular Exam Cardiovascular Exam: REGULAR RHYTHM, +S1, +S2 - GI/Abdominal Exam GI & Abdominal Exam: Soft, Normal Bowel Sounds - Extremities Exam Extremities Exam: Normal Capillary Refill, Normal Inspection Additional comments: R foot bandaged; dressing is clean dry and intact; Dressing on L foot present - Back Exam Back Exam: NORMAL INSPECTION - Neurological Exam Neurological Exam: Alert, Awake Additional comments: Oriented x2 - Psychiatric Exam Psychiatric exam: Flat Affect, Indifferent to questions this AM; short one word responses. - Skin Skin Exam: Dry, Intact, Warm Assessment and Plan - Assessment and Plan (Free Text) Assessment: 57 year old male unknown PMHx admitted on 11/29/17 for AMS, right hip cellulitis , multifocal pneumonia, influenza A, strep viridians bacteremia with findings of stroke on MRI - acute vs. 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 Patient was treated for bacteremia with IV abx. Guardianship establishment pending court date, which was rescheduled for May 28. Plan: Anemia: H/H slowly downtrending over hospitalization; patient has had + heme occult test as well as known colonic polyp Most likely Fe+ deficiency in nature Patient with a microcytic anemia Iron level low TIBC wnl Retic count pending Started ferrous sulfate PO BID 05/26 Continue monitoring for constipation given new onset iron supplement Altered mental status At baseline this AM Cont. delirium precautions PT -patient refusing to participate Cont ASA 81 QD / LIPITOR 20 QD Dorsal Right Foot Ulcer Bandaged. Non purulent. Podiatry recommendations appreciated [facility] [place] No antibiotics warranted at this time per ID Coag negative Staphylococcus bacteremia - resolved Last bld clx negative 12/04/17 with completion of 6 week course of antibiotics Monitor WBC, ESR, CRP weekly Echocardiogram unable to rule out vegetations, family is unavailable for consent for TAHIR Colonic mass CT Abd/Pelvis showing colonic mass and hepatic lesions GI consulted: follow recs Flex sig/colonoscopy refused by patient Family unable to be contacted for consent Diabetes mellitus type 2 Cont RISS low Cont Metformin 500mg BID Cont accuchecks Carb consistent diet HTN BP Stable, continue to monitor Cont Lisinopril 10 QD Cont Amlodipine 10 mg PO QD Leukocytosis - RESOLVED WBC elevated 05/17 Patient srinivasan cultured Blood cx negative x2 after 48H Urine cx w/ multiple species ML contaminated Abd U/S - 7mm common bile duct dilatation and gallstones; Hepatic lesions measuring up to 4.9cm and 3.8 cm; compared to prev abd U/S from 12/05 lesions measured 4.1cm and 3.1cm No RUQ tenderness appreciated on exam; ID following, appreciate reccs Affective disorder Cont Celexa 10mg PO Daily Constipation Colace 100mg BID Miralax 17gm BID Discontinued Lactulose Hx ETOH Abuse Cont Thiamine Cont Folic Acid Cont Multivitamin DVT Prophylaxis: SCDs Dispo: Patient continues to display a lack of decision making capacity: Guardianship status to be determined; Court date for guardianship postponed to May 28 2018. Pt. seen, examined, and discussed with attending physician Dr. Endy Morin DO PGY1 Internal Medicine Charge Histotechnologist - Pager [phone] <Deanna Schumacher - Last Filed: 06/20/18 14:46> Objective - Vital Signs/Intake and Output Vital Signs (last 24 hours): Temp Pulse Resp BP Pulse Ox 97.8 F 96 H 16 136/97 H 97 06/20/18 08:28 06/20/18 09:35 06/20/18 08:28 06/20/18 09:35 06/20/18 08:28 Intake and Output: 06/20/18 06/20/18 06:59 18:59 Intake Total 240 Balance 240 - Medications Medications: Current Medications Aspirin (Aspirin Chewable) 81 mg PO DAILY [facility] Last Admin: 06/20/18 09:36 Dose: 81 mg Citalopram Hydrobromide (Celexa) 10 mg PO DAILY [facility] Last Admin: 06/20/18 09:35 Dose: 10 mg Collagenase (Santyl) 0 gm TOP DAILY [facility] Last Admin: 06/20/18 10:30 Dose: 1 applic Insulin Human Lispro (Humalog Low) 0 units SC [facility] PRN Reason: Protocol Last Admin: 06/20/18 11:30 Dose: Not Given Lisinopril (Zestril) 10 mg PO DAILY [facility] Last Admin: 06/20/18 09:35 Dose: 10 mg Pantoprazole Sodium (Protonix Ec Tab) 40 mg PO 0600 [facility] Last Admin: 06/20/18 05:20 Dose: 40 mg Thiamine HCl (Vitamin B1 Tab) 100 mg PO DAILY [facility] Last Admin: 06/20/18 09:35 Dose: 100 mg - Labs Labs: 06/16/18 10:30 06/14/18 06:00 PT 12.5 SECONDS (9.4-12.5) 12/09/17 10:00 INR 1.09 (0.93-1.08) H 12/09/17 10:00 APTT 28.3 Seconds (25.1-36.5) 11/30/17 05:30 Attending/Attestation - Attestation I have personally seen and examined this patient.: Yes I have fully participated in the care of the patient.: Yes I have reviewed all pertinent clinical information, including history, physical exam and plan: Yes Notes (Text): 06/20/18 14:46 Medical record note made by the resident after discussion with my direction and input after the patient was personally seen and examined by me. I have reviewed the chart and agree that the record accurately reflects by personal performance of the history, physical exam, data review, and medical decision-making, in the course for the patient. I have also personally directed the plan of care.
--- NOTE | 2018-05-29 17:22 | CP.PCM.PN ---
Subjective - Date & Time of Evaluation Date of Evaluation: 05/29/18 Time of Evaluation: 11:30 - Subjective Subjective: Not in distress, no fevers. Objective - Vital Signs/Intake and Output Vital Signs (last 24 hours): Temp Pulse Resp BP Pulse Ox 97.7 F 78 18 132/82 98 05/28/18 07:58 05/28/18 07:58 05/28/18 07:58 05/28/18 07:58 05/28/18 07:58 Intake and Output: 05/28/18 05/28/18 06:59 18:59 Intake Total 1800 520 Balance 1800 520 - Medications Medications: Current Medications Aspirin (Aspirin Chewable) 81 mg PO DAILY [facility] Atorvastatin Calcium (Lipitor) 20 mg PO DIN [facility] Citalopram Hydrobromide (Celexa) 10 mg PO DAILY [facility] Collagenase (Santyl) 0 gm TOP DAILY [facility] Ferrous Sulfate (Feosol Liq) 300 mg PO BID [facility] Last Admin: 05/28/18 11:51 Dose: 300 mg Insulin Human Lispro (Humalog Low) 0 units SC [facility] PRN Reason: Protocol Last Admin: 05/28/18 11:56 Dose: 1 u Lisinopril (Zestril) 10 mg PO DAILY [facility] Metformin HCl (Glucophage) 500 mg PO BID [facility] Mupirocin (Bactroban Ointment) 0 gm TOP BID [facility] Pantoprazole Sodium (Protonix Ec Tab) 40 mg PO 0600 [facility] Thiamine HCl (Vitamin B1 Tab) 100 mg PO DAILY [facility] - Labs Labs: 05/25/18 06:05 05/25/18 06:05 PT 12.5 SECONDS (9.4-12.5) 12/09/17 10:00 INR 1.09 (0.93-1.08) H 12/09/17 10:00 APTT 28.3 Seconds (25.1-36.5) 11/30/17 05:30 - Constitutional Appears: No Acute Distress, Chronically Ill - Head Exam Head Exam: NORMAL INSPECTION - Neck Exam Neck Exam: absent: Meningismus - Respiratory Exam Respiratory Exam: Decreased Breath Sounds - Cardiovascular Exam Cardiovascular Exam: +S1, +S2 - GI/Abdominal Exam GI & Abdominal Exam: Soft. absent: Tenderness Assessment and Plan - Assessment and Plan (Free Text) Plan: Assessment S/P systemic inflammatory response syndrome, with no evidence of sepsis or infection, resolved S/P sepsis due to strep viridans and CoNS bacteremia from right gluteal and back cellulitis S/P multifocal HCAP on top of Influenza A infection S/P Sammie infection of sacral area as well peripheral vascular disease Plan continue to monitor clinically off antibiotics since he is at risk for hospital- acquired infections - repeat blood cx are negative, PCT is normal urine culture shows contamination - follow up further plans for the liver masses noted on ultrasound abdomen
[2018-05-30] MEDS: Pantoprazole 40 mg EC Tab PO SCH (05:59)
--- NOTE | 2018-05-30 07:39 | CP.PCM.PN ---
<Mariano Morin - Last Filed: 05/30/18 16:29> Subjective - Date & Time of Evaluation Date of Evaluation: 05/30/18 Time of Evaluation: 07:37 - Subjective Subjective: Mariano Morin DO PGY1 - Internal Medicine Bail Bond Agent - Hospital Progress Note Seen this AM at bedside; NO issues reported overnight No BM overnight or this AM; will continue to monitor. Objective - Vital Signs/Intake and Output Vital Signs (last 24 hours): Temp Pulse Resp BP Pulse Ox 98.5 F 80 20 109/64 98 05/29/18 16:26 05/29/18 16:26 05/29/18 16:26 05/29/18 16:26 05/29/18 16:26 Intake and Output: 05/30/18 05/30/18 06:59 18:59 Intake Total 1300 120 Balance 1300 120 - Medications Medications: Current Medications Aspirin (Aspirin Chewable) 81 mg PO DAILY [facility] Last Admin: 05/29/18 09:50 Dose: 81 mg Atorvastatin Calcium (Lipitor) 20 mg PO DIN [facility] Last Admin: 05/29/18 18:23 Dose: 20 mg Citalopram Hydrobromide (Celexa) 10 mg PO DAILY [facility] Last Admin: 05/29/18 09:50 Dose: 10 mg Collagenase (Santyl) 0 gm TOP DAILY [facility] Last Admin: 05/29/18 09:50 Dose: 1 u Ferrous Sulfate (Feosol Liq) 300 mg PO BID [facility] Last Admin: 05/29/18 18:24 Dose: 300 mg Insulin Human Lispro (Humalog Low) 0 units SC [facility] PRN Reason: Protocol Last Admin: 05/29/18 22:05 Dose: Not Given Lisinopril (Zestril) 10 mg PO DAILY [facility] Last Admin: 05/29/18 09:50 Dose: 10 mg Metformin HCl (Glucophage) 500 mg PO BID [facility] Last Admin: 05/29/18 18:24 Dose: 500 mg Mupirocin (Bactroban Ointment) 0 gm TOP BID [facility] Last Admin: 05/29/18 18:24 Dose: 1 u Pantoprazole Sodium (Protonix Ec Tab) 40 mg PO 0600 [facility] Last Admin: 05/30/18 05:59 Dose: 40 mg Thiamine HCl (Vitamin B1 Tab) 100 mg PO DAILY [facility] Last Admin: 05/29/18 09:50 Dose: 100 mg - Labs Labs: 05/25/18 06:05 05/25/18 06:05 PT 12.5 SECONDS (9.4-12.5) 12/09/17 10:00 INR 1.09 (0.93-1.08) H 12/09/17 10:00 APTT 28.3 Seconds (25.1-36.5) 11/30/17 05:30 Physical Exam - Constitutional Appears: Non-toxic, No Acute Distress, Awake at baseline - Head Exam Head Exam: ATRAUMATIC, NORMAL INSPECTION, NORMOCEPHALIC - Eye Exam Eye Exam: EOMI, Normal appearance, PERRL - ENT Exam ENT Exam: Mucous Membranes Moist, Normal Oropharynx - Neck Exam Neck Exam: Full ROM, Normal Inspection - Respiratory Exam Respiratory Exam: Clear to Ausculation Bilateral, NORMAL BREATHING PATTERN, no rales, wheezes or rhonchi - Cardiovascular Exam Cardiovascular Exam: REGULAR RHYTHM, +S1, +S2 - GI/Abdominal Exam GI & Abdominal Exam: Soft, Normal Bowel Sounds - Extremities Exam Extremities Exam: Normal Capillary Refill, Normal Inspection Additional comments: R foot bandaged; dressing is clean dry and intact; Dressing on L foot present - Back Exam Back Exam: NORMAL INSPECTION - Neurological Exam Neurological Exam: Alert, Awake Additional comments: Oriented x2 - Psychiatric Exam Psychiatric exam: Flat Affect, Indifferent to questions this AM; short one word responses. - Skin Skin Exam: Dry, Intact, Warm Assessment and Plan - Assessment and Plan (Free Text) Assessment: 57 year old male unknown PMHx admitted on 11/29/17 for AMS, right hip cellulitis , multifocal pneumonia, influenza A, strep viridians bacteremia with findings of stroke on MRI - acute vs. 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 Patient was treated for bacteremia with IV abx. Guardianship establishment pending court date; potentially pushed back into Mid June at this time. The patient remains to be at his medical and mental baseline at this time. A list of his medical problems and active management can be found below: Plan: Anemia: H/H slowly downtrending over hospitalization; patient has had + heme occult test as well as known colonic polyp Most likely Fe+ deficiency in nature Patient with a microcytic anemia Iron level low TIBC wnl Retic count pending Started ferrous sulfate PO BID 05/26 Continue monitoring for constipation given new onset iron supplement Altered mental status At baseline this AM Cont. delirium precautions PT -patient refusing to participate Cont ASA 81 QD / LIPITOR 20 QD Dorsal Right Foot Ulcer Bandaged. Non purulent. Podiatry recommendations appreciated W[facility] care [facility] No antibiotics warranted at this time per ID Coag negative Staphylococcus bacteremia - resolved Last bld clx negative 12/04/17 with completion of 6 week course of antibiotics Monitor WBC, ESR, CRP weekly Echocardiogram unable to rule out vegetations, family is unavailable for consent for TAHIR Colonic mass CT Abd/Pelvis showing colonic mass and hepatic lesions GI consulted: follow recs Flex sig/colonoscopy refused by patient Family unable to be contacted for consent Diabetes mellitus type 2 Cont RISS low Cont Metformin 500mg BID Cont accuchecks Carb consistent diet HTN BP Stable, continue to monitor Cont Lisinopril 10 QD Cont Amlodipine 10 mg PO QD Leukocytosis - RESOLVED WBC elevated 05/17 Patient srinivasan cultured Blood cx negative x2 after 48H Urine cx w/ multiple species ML contaminated Abd U/S - 7mm common bile duct dilatation and gallstones; Hepatic lesions measuring up to 4.9cm and 3.8 cm; compared to prev abd U/S from 12/05 lesions measured 4.1cm and 3.1cm No RUQ tenderness appreciated on exam; ID following, appreciate reccs Affective disorder Cont Celexa 10mg PO Daily Constipation Colace 100mg BID Miralax 17gm BID Discontinued Lactulose Hx ETOH Abuse Cont Thiamine Cont Folic Acid Cont Multivitamin DVT Prophylaxis: SCDs Dispo: Patient continues to display a lack of decision making capacity: Guardianship status yet to be determined. Pt. seen, examined, and discussed with attending physician Dr. Iraj Morin DO PGY1 Internal Medicine Bail Bond Agent - Pager [phone] <Sixto Galo - Last Filed: 05/30/18 17:36> Objective - Vital Signs/Intake and Output Vital Signs (last 24 hours): Temp Pulse Resp BP Pulse Ox 98.4 F 78 18 110/72 97 05/30/18 16:46 05/30/18 16:46 05/30/18 16:46 05/30/18 16:46 05/30/18 16:46 Intake and Output: 05/30/18 05/30/18 06:59 18:59 Intake Total 1300 120 Balance 1300 120 - Medications Medications: Current Medications Aspirin (Aspirin Chewable) 81 mg PO DAILY [facility] Last Admin: 05/30/18 10:08 Dose: 81 mg Atorvastatin Calcium (Lipitor) 20 mg PO DIN [facility] Last Admin: 05/29/18 18:23 Dose: 20 mg Citalopram Hydrobromide (Celexa) 10 mg PO DAILY [facility] Last Admin: 05/30/18 10:08 Dose: 10 mg Collagenase (Santyl) 0 gm TOP DAILY [facility] Last Admin: 05/30/18 10:09 Dose: 1 u Ferrous Sulfate (Feosol Liq) 300 mg PO BID [facility] Last Admin: 05/30/18 10:08 Dose: 300 mg Insulin Human Lispro (Humalog Low) 0 units SC [facility] PRN Reason: Protocol Last Admin: 05/30/18 12:23 Dose: Not Given Lisinopril (Zestril) 10 mg PO DAILY [facility] Last Admin: 05/30/18 10:22 Dose: 10 mg Metformin HCl (Glucophage) 500 mg PO BID [facility] Last Admin: 05/30/18 10:08 Dose: 500 mg Mupirocin (Bactroban Ointment) 0 gm TOP BID [facility] Last Admin: 05/30/18 10:09 Dose: 1 u Pantoprazole Sodium (Protonix Ec Tab) 40 mg PO 0600 [facility] Last Admin: 05/30/18 05:59 Dose: 40 mg Thiamine HCl (Vitamin B1 Tab) 100 mg PO DAILY [facility] Last Admin: 05/30/18 10:48 Dose: 100 mg - Labs Labs: 05/25/18 06:05 05/25/18 06:05 PT 12.5 SECONDS (9.4-12.5) 12/09/17 10:00 INR 1.09 (0.93-1.08) H 12/09/17 10:00 APTT 28.3 Seconds (25.1-36.5) 11/30/17 05:30 Attending/Attestation - Attestation I have personally seen and examined this patient.: Yes I have fully participated in the care of the patient.: Yes I have reviewed all pertinent clinical information, including history, physical exam and plan: Yes Notes (Text): 05/30/18 17:35 57 year old male who was admitted with altered mental status. He was found to have bacteremia, cellulitis and pneumonia for which he has completed antibiotics. He also had CVA. He is on aspirin and statin. His mental status is at his baseline. Podiatry is following for foot ulceration. Patient has no new complaints this morning. Encouraged patient for out of bed to chair and participate with PT. He is pending placement/guardianship. Court date has now been again been postponed to next month. Sixto Galo MD Hospitalist.
[2018-05-30] MEDS: Insulin Lispro (humaLOG) LOW Coverage SC SCH ×4 (08:16→21:39)
[2018-05-30] MEDS: Ferrous Sulfate 300 mg/5 mL Liq UD PO SCH ×2 (10:08→18:01)
[2018-05-30] MEDS: Collagenase 250 Units/gm Ointment(30 gm) TOP SCH (10:09)
[2018-05-30] MEDS: Mupirocin 2% Ointment 15 GM TUBE TOP SCH ×2 (10:09→17:58)
--- NOTE | 2018-05-30 11:20 | CP.PCM.PN ---
<[email or web address] - Last Filed: 05/30/18 11:16> Subjective - Date & Time of Evaluation Date of Evaluation: 05/30/18 Time of Evaluation: 11:16 - Subjective Subjective: Podiatry Progress Note for Dr. Davis 58 y/o male seen and evaluated at bedside for right anterior ankle ulceration and left ankle abrasion. Patient seen with attending Dr. Davis at bedside. Patient is AAO x 3 and NAD at time of visit. Denies any acute overnight events or new pedal complaints. No heel offloading boots noted to feet at this time. Denies of any other pedal complains at this time. Objective - Vital Signs/Intake and Output Vital Signs (last 24 hours): Temp Pulse Resp BP Pulse Ox 97.7 F 91 H 18 118/80 95 05/30/18 07:52 05/30/18 10:22 05/30/18 07:52 05/30/18 10:22 05/30/18 07:52 Intake and Output: 05/30/18 05/30/18 06:59 18:59 Intake Total 1300 120 Balance 1300 120 - Medications Medications: Current Medications Aspirin (Aspirin Chewable) 81 mg PO DAILY [facility] Last Admin: 05/30/18 10:08 Dose: 81 mg Atorvastatin Calcium (Lipitor) 20 mg PO DIN [facility] Last Admin: 05/29/18 18:23 Dose: 20 mg Citalopram Hydrobromide (Celexa) 10 mg PO DAILY [facility] Last Admin: 05/30/18 10:08 Dose: 10 mg Collagenase (Santyl) 0 gm TOP DAILY [facility] Last Admin: 05/30/18 10:09 Dose: 1 u Ferrous Sulfate (Feosol Liq) 300 mg PO BID [facility] Last Admin: 05/30/18 10:08 Dose: 300 mg Insulin Human Lispro (Humalog Low) 0 units SC [facility] PRN Reason: Protocol Last Admin: 05/30/18 08:16 Dose: Not Given Lisinopril (Zestril) 10 mg PO DAILY [facility] Last Admin: 05/30/18 10:22 Dose: 10 mg Metformin HCl (Glucophage) 500 mg PO BID [facility] Last Admin: 05/30/18 10:08 Dose: 500 mg Mupirocin (Bactroban Ointment) 0 gm TOP BID [facility] Last Admin: 05/30/18 10:09 Dose: 1 u Pantoprazole Sodium (Protonix Ec Tab) 40 mg PO 0600 [facility] Last Admin: 05/30/18 05:59 Dose: 40 mg Thiamine HCl (Vitamin B1 Tab) 100 mg PO DAILY [facility] Last Admin: 05/30/18 10:48 Dose: 100 mg - Labs Labs: 05/25/18 06:05 05/25/18 06:05 PT 12.5 SECONDS (9.4-12.5) 12/09/17 10:00 INR 1.09 (0.93-1.08) H 12/09/17 10:00 APTT 28.3 Seconds (25.1-36.5) 11/30/17 05:30 - Constitutional Appears: Well, Non-toxic, No Acute Distress - Extremities Exam Additional comments: B/L Lower extremity exam: VASC: DP and PT faintly palpable b/l, CFT delayed > 3 seconds x 10 digits, temperature gradient cool to cool, no edema noted to the lower extremities NEURO: Epicritic and protective sensation grossly intact b/l DERM: Ulceration noted to the anterior aspect of right ankle at the level of the ankle joint measuring approximately 2 cm x 1 cm x 0.1 cm with mostly fibrotic wound base and small central eschar. Minimal periwound erythema noted. No streaking, no drainage, no tunneling, no abscess, no odor or drainage, no fluctuance noted, no other clinical signs of infection. No probe to bone. Abrasion noted to left anterior ankle, No clinical signs of infection or break in skin appreciated ORTHO: no pain with palpation to the entire lower extremity, no calf pain or tenderness appreciated, unable to assess MMT secondary to patient's cooperation - Neurological Exam Neurological Exam: Alert, Awake, Oriented x3 - Psychiatric Exam Psychiatric exam: Normal Affect, Normal Mood Assessment and Plan - Assessment and Plan (Free Text) Assessment: 58 y/o male seen at bedside for right anterior ankle ulceration and left ankle abrasion Plan: Patient seen and evaluated at bedside with Dr. Davis Chart, labs and vitals reviewed Afebrile, absent leukocytosis Patient Right ankle wound cleased with saline Bilateral ankles dressed with bactroban, optifoam No plan for surgical intervention at this time Stable from podiatry standpoint Podiatry will continue to follow while patient in house <Raciel Davis - Last Filed: 05/30/18 12:38> Objective - Vital Signs/Intake and Output Vital Signs (last 24 hours): Temp Pulse Resp BP Pulse Ox 97.7 F 91 H 18 118/80 95 05/30/18 07:52 05/30/18 10:22 05/30/18 07:52 05/30/18 10:22 05/30/18 07:52 Intake and Output: 05/30/18 05/30/18 06:59 18:59 Intake Total 1300 120 Balance 1300 120 - Medications Medications: Current Medications Aspirin (Aspirin Chewable) 81 mg PO DAILY [facility] Last Admin: 05/30/18 10:08 Dose: 81 mg Atorvastatin Calcium (Lipitor) 20 mg PO DIN [facility] Last Admin: 05/29/18 18:23 Dose: 20 mg Citalopram Hydrobromide (Celexa) 10 mg PO DAILY [facility] Last Admin: 05/30/18 10:08 Dose: 10 mg Collagenase (Santyl) 0 gm TOP DAILY [facility] Last Admin: 05/30/18 10:09 Dose: 1 u Ferrous Sulfate (Feosol Liq) 300 mg PO BID [facility] Last Admin: 05/30/18 10:08 Dose: 300 mg Insulin Human Lispro (Humalog Low) 0 units SC [facility] PRN Reason: Protocol Last Admin: 05/30/18 12:23 Dose: Not Given Lisinopril (Zestril) 10 mg PO DAILY [facility] Last Admin: 05/30/18 10:22 Dose: 10 mg Metformin HCl (Glucophage) 500 mg PO BID [facility] Last Admin: 05/30/18 10:08 Dose: 500 mg Mupirocin (Bactroban Ointment) 0 gm TOP BID [facility] Last Admin: 05/30/18 10:09 Dose: 1 u Pantoprazole Sodium (Protonix Ec Tab) 40 mg PO 0600 [facility] Last Admin: 05/30/18 05:59 Dose: 40 mg Thiamine HCl (Vitamin B1 Tab) 100 mg PO DAILY [facility] Last Admin: 05/30/18 10:48 Dose: 100 mg - Labs Labs: 05/25/18 06:05 05/25/18 06:05 PT 12.5 SECONDS (9.4-12.5) 12/09/17 10:00 INR 1.09 (0.93-1.08) H 12/09/17 10:00 APTT 28.3 Seconds (25.1-36.5) 11/30/17 05:30 Attending/Attestation - Attestation I have personally seen and examined this patient.: Yes I have fully participated in the care of the patient.: Yes I have reviewed all pertinent clinical information, including history, physical exam and plan: Yes
--- NOTE | 2018-05-30 20:17 | CP.PCM.PN ---
Subjective - Date & Time of Evaluation Date of Evaluation: 05/30/18 Time of Evaluation: 11:45 - Subjective Subjective: No fevers, not in distress, no vomiting, no diarrhea. Objective - Vital Signs/Intake and Output Vital Signs (last 24 hours): Temp Pulse Resp BP Pulse Ox 98.5 F 80 20 109/64 98 05/29/18 16:26 05/29/18 16:26 05/29/18 16:26 05/29/18 16:26 05/29/18 16:26 Intake and Output: 05/29/18 05/29/18 06:59 18:59 Intake Total 900 Balance 900 - Medications Medications: Current Medications Aspirin (Aspirin Chewable) 81 mg PO DAILY [facility] Last Admin: 05/29/18 09:50 Dose: 81 mg Atorvastatin Calcium (Lipitor) 20 mg PO DIN [facility] Last Admin: 05/28/18 19:38 Dose: 20 mg Citalopram Hydrobromide (Celexa) 10 mg PO DAILY [facility] Last Admin: 05/29/18 09:50 Dose: 10 mg Collagenase (Santyl) 0 gm TOP DAILY [facility] Last Admin: 05/29/18 09:50 Dose: 1 u Ferrous Sulfate (Feosol Liq) 300 mg PO BID [facility] Last Admin: 05/29/18 09:50 Dose: 300 mg Insulin Human Lispro (Humalog Low) 0 units SC [facility] PRN Reason: Protocol Last Admin: 05/29/18 11:51 Dose: 1 u Lisinopril (Zestril) 10 mg PO DAILY [facility] Last Admin: 05/29/18 09:50 Dose: 10 mg Metformin HCl (Glucophage) 500 mg PO BID [facility] Last Admin: 05/29/18 09:50 Dose: 500 mg Mupirocin (Bactroban Ointment) 0 gm TOP BID [facility] Last Admin: 05/29/18 09:50 Dose: 1 u Pantoprazole Sodium (Protonix Ec Tab) 40 mg PO 0600 [facility] Last Admin: 05/29/18 05:35 Dose: 40 mg Thiamine HCl (Vitamin B1 Tab) 100 mg PO DAILY [facility] Last Admin: 05/29/18 09:50 Dose: 100 mg - Labs Labs: 05/25/18 06:05 05/25/18 06:05 PT 12.5 SECONDS (9.4-12.5) 12/09/17 10:00 INR 1.09 (0.93-1.08) H 12/09/17 10:00 APTT 28.3 Seconds (25.1-36.5) 11/30/17 05:30 - Constitutional Appears: Non-toxic, No Acute Distress, Chronically Ill - Head Exam Head Exam: NORMAL INSPECTION - Respiratory Exam Respiratory Exam: Decreased Breath Sounds - Cardiovascular Exam Cardiovascular Exam: +S1, +S2 - GI/Abdominal Exam GI & Abdominal Exam: Soft. absent: Tenderness Assessment and Plan - Assessment and Plan (Free Text) Plan: Assessment S/P systemic inflammatory response syndrome, with no evidence of sepsis or infection, resolved S/P sepsis due to strep viridans and CoNS bacteremia from right gluteal and back cellulitis liver masses noted on ultrasound S/P multifocal HCAP on top of Influenza A infection S/P Sammie infection of sacral area as well peripheral vascular disease Plan continue to monitor clinically off antibiotics since he is at risk for healthcare-associated infections - repeat blood cx are negative, PCT is normal urine culture shows contamination - follow up further plans for the liver masses noted on ultrasound abdomen
[2018-05-31] MEDS: Pantoprazole 40 mg EC Tab PO SCH (05:29)
--- NOTE | 2018-05-31 07:09 | CP.PCM.PN ---
<Mariano Morin - Last Filed: 05/31/18 18:13> Subjective - Date & Time of Evaluation Date of Evaluation: 05/31/18 Time of Evaluation: 07:05 - Subjective Subjective: Mariano Morin DO PGY1 Internal Medicine Business Banking Relationship Manager - Hospital Progress Note Evaluated at bedside; no issues reported overnight. Patient resting comfortably watching TV in bed. No BM reported today; Last BM was yesterday morning, will address w/ medication tmmr if persists. Patient is at baseline. 12 system ROS otherwise negative Objective - Vital Signs/Intake and Output Vital Signs (last 24 hours): Temp Pulse Resp BP Pulse Ox 98.4 F 78 18 110/72 97 05/30/18 16:46 05/30/18 16:46 05/30/18 16:46 05/30/18 16:46 05/30/18 16:46 Intake and Output: 05/31/18 05/31/18 06:59 18:59 Intake Total 1020 Balance 1020 - Medications Medications: Current Medications Aspirin (Aspirin Chewable) 81 mg PO DAILY [facility] Last Admin: 05/30/18 10:08 Dose: 81 mg Atorvastatin Calcium (Lipitor) 20 mg PO DIN [facility] Last Admin: 05/30/18 18:01 Dose: 20 mg Citalopram Hydrobromide (Celexa) 10 mg PO DAILY [facility] Last Admin: 05/30/18 10:08 Dose: 10 mg Collagenase (Santyl) 0 gm TOP DAILY [facility] Last Admin: 05/30/18 10:09 Dose: 1 u Ferrous Sulfate (Feosol Liq) 300 mg PO BID [facility] Last Admin: 05/30/18 18:01 Dose: 300 mg Insulin Human Lispro (Humalog Low) 0 units SC [facility] PRN Reason: Protocol Last Admin: 05/30/18 21:39 Dose: Not Given Lisinopril (Zestril) 10 mg PO DAILY [facility] Last Admin: 05/30/18 10:22 Dose: 10 mg Metformin HCl (Glucophage) 500 mg PO BID [facility] Last Admin: 05/30/18 18:01 Dose: 500 mg Mupirocin (Bactroban Ointment) 0 gm TOP BID [facility] Last Admin: 05/30/18 17:58 Dose: Not Given Pantoprazole Sodium (Protonix Ec Tab) 40 mg PO 0600 [facility] Last Admin: 05/31/18 05:29 Dose: 40 mg Thiamine HCl (Vitamin B1 Tab) 100 mg PO DAILY [facility] Last Admin: 05/30/18 10:48 Dose: 100 mg - Labs Labs: 05/25/18 06:05 05/25/18 06:05 PT 12.5 SECONDS (9.4-12.5) 12/09/17 10:00 INR 1.09 (0.93-1.08) H 12/09/17 10:00 APTT 28.3 Seconds (25.1-36.5) 11/30/17 05:30 Physical Exam - Constitutional Appears: Non-toxic, No Acute Distress, Awake at baseline - Head Exam Head Exam: ATRAUMATIC, NORMAL INSPECTION, NORMOCEPHALIC - Eye Exam Eye Exam: EOMI, Normal appearance, PERRL - ENT Exam ENT Exam: Mucous Membranes Moist, Normal Oropharynx - Neck Exam Neck Exam: Full ROM, Normal Inspection - Respiratory Exam Respiratory Exam: Clear to Ausculation Bilateral, NORMAL BREATHING PATTERN, no rales, wheezes or rhonchi - Cardiovascular Exam Cardiovascular Exam: REGULAR RHYTHM, +S1, +S2 - GI/Abdominal Exam GI & Abdominal Exam: Soft, Normal Bowel Sounds - Extremities Exam Extremities Exam: Normal Capillary Refill, Normal Inspection Additional comments: R foot bandaged; dressing is clean dry and intact; Dressing on L foot CDI w/ optifoam - Back Exam Back Exam: NORMAL INSPECTION - Neurological Exam Neurological Exam: Alert, Awake Additional comments: Oriented x2 - Psychiatric Exam Psychiatric exam: Flat Affect, Indifferent to questions this AM; short one word responses. - Skin Skin Exam: Dry, Intact, Warm Assessment and Plan - Assessment and Plan (Free Text) Assessment: 57 year old male unknown PMHx admitted on 11/29/17 for AMS, right hip cellulitis , multifocal pneumonia, influenza A, strep viridians bacteremia with findings of stroke on MRI - acute vs. 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 Patient was treated for bacteremia with IV abx. Guardianship establishment pending court date; potentially pushed back into Mid June at this time. The patient remains to be at his medical and mental baseline at this time. A list of his medical problems and active management can be found below: Plan: Anemia: H/H slowly downtrending over hospitalization; patient has had + heme occult test as well as known colonic polyp Most likely Fe+ deficiency in nature Patient with a microcytic anemia Iron level low TIBC wnl Retic count pending Started ferrous sulfate PO BID 05/26 Continue monitoring for constipation given new onset iron supplement Altered mental status At baseline this AM Cont. delirium precautions PT -patient refusing to participate Cont ASA 81 QD / LIPITOR 20 QD Dorsal Right Foot Ulcer Bandaged. Non purulent. Podiatry recommendations appreciated Wound care following [facility] No antibiotics warranted at this time per ID Coag negative Staphylococcus bacteremia - resolved Last bld clx negative 12/04/17 with completion of 6 week course of antibiotics Monitor WBC, ESR, CRP weekly Echocardiogram unable to rule out vegetations, family is unavailable for consent for TAHIR Colonic mass CT Abd/Pelvis showing colonic mass and hepatic lesions GI consulted: follow recs Flex sig/colonoscopy refused by patient Family unable to be contacted for consent Diabetes mellitus type 2 Cont RISS low Cont Metformin 500mg BID Cont accuchecks Carb consistent diet HTN BP Stable, continue to monitor Cont Lisinopril 10 QD Cont Amlodipine 10 mg PO QD Leukocytosis - RESOLVED WBC elevated 05/17 Patient srinivasan cultured Blood cx negative x2 after 48H Urine cx w/ multiple species ML contaminated Abd U/S - 7mm common bile duct dilatation and gallstones; Hepatic lesions measuring up to 4.9cm and 3.8 cm; compared to prev abd U/S from 12/05 lesions measured 4.1cm and 3.1cm No RUQ tenderness appreciated on exam; ID following, appreciate reccs Affective disorder Cont Celexa 10mg PO Daily Constipation Colace 100mg BID Miralax 17gm BID Discontinued Lactulose Hx ETOH Abuse Cont Thiamine Cont Folic Acid Cont Multivitamin DVT Prophylaxis: SCDs Dispo: Patient continues to display a lack of decision making capacity: Guardianship status yet to be determined. Pt. seen, examined, and discussed with attending physician Dr. Iraj Morin DO PGY1 Internal Medicine Business Banking Relationship Manager - Pager [phone] <Sixto Galo - Last Filed: 06/01/18 06:43> Objective - Vital Signs/Intake and Output Vital Signs (last 24 hours): Temp Pulse Resp BP Pulse Ox 98.9 F 95 H 18 96/56 L 97 05/31/18 18:00 05/31/18 18:00 05/31/18 18:00 05/31/18 18:00 05/31/18 18:00 Intake and Output: 08/14/18 08/15/18 18:59 06:59 Intake Total 1140 Balance 1140 - Medications Medications: Current Medications Aspirin (Aspirin Chewable) 81 mg PO DAILY [facility] Last Admin: 05/31/18 09:56 Dose: 81 mg Atorvastatin Calcium (Lipitor) 20 mg PO DIN [facility] Last Admin: 05/31/18 18:24 Dose: 20 mg Citalopram Hydrobromide (Celexa) 10 mg PO DAILY [facility] Last Admin: 05/31/18 09:56 Dose: 10 mg Collagenase (Santyl) 0 gm TOP DAILY [facility] Last Admin: 05/31/18 09:57 Dose: 1 u Ferrous Sulfate (Feosol Liq) 300 mg PO BID [facility] Last Admin: 05/31/18 18:23 Dose: 300 mg Insulin Human Lispro (Humalog Low) 0 units SC [facility] PRN Reason: Protocol Last Admin: 05/31/18 21:51 Dose: Not Given Lisinopril (Zestril) 10 mg PO DAILY [facility] Last Admin: 05/31/18 09:56 Dose: 10 mg Metformin HCl (Glucophage) 500 mg PO BID [facility] Last Admin: 05/31/18 18:23 Dose: 500 mg Mupirocin (Bactroban Ointment) 0 gm TOP BID [facility] Last Admin: 05/31/18 18:23 Dose: 1 u Pantoprazole Sodium (Protonix Ec Tab) 40 mg PO 0600 [facility] Last Admin: 06/01/18 05:48 Dose: 40 mg Thiamine HCl (Vitamin B1 Tab) 100 mg PO DAILY [facility] Last Admin: 05/31/18 09:56 Dose: 100 mg - Labs Labs: 05/31/18 06:45 05/31/18 06:45 PT 12.5 SECONDS (9.4-12.5) 12/09/17 10:00 INR 1.09 (0.93-1.08) H 12/09/17 10:00 APTT 28.3 Seconds (25.1-36.5) 11/30/17 05:30 Attending/Attestation - Attestation I have personally seen and examined this patient.: Yes I have fully participated in the care of the patient.: Yes I have reviewed all pertinent clinical information, including history, physical exam and plan: Yes Notes (Text): 05/31/18 57 year old male who was admitted with altered mental status. He was found to have bacteremia, cellulitis and pneumonia for which he has completed antibiotics. He also had CVA. He is on aspirin and statin. His mental status is at his baseline. He continues to refuse to participate with PT or get out of bed to chair. Podiatry is following for foot ulceration. Patient has no new complaints this morning. He is comfortable. He is pending placement/guardianship. Court date has now been again postponed to next month. Sixto Galo MD Hospitalist.
[2018-05-31 07:25] LABS: BASO # 0.03 K/mm3 (0.0-2.0); BASO % 0.3 % (0.0-3.0); EOS % 0.4 % (1.5-5.0); GRAN # 7.9 (1.4-6.5); HEMOGLOBIN 9.8 g/dL (14.0-18.0); LYMPH # 1.8 (1.2-3.4); LYMPH % 16.1 % (22.0-35.0); MEAN CELL VOLUME 75.6 fl (80.0-105.0); MEAN CORPUSCULAR HEMOGLOBIN 24.4 pg (25.0-35.0); MEAN CORPUSCULAR HGB CONC 32.3 g/dl (31.0-37.0); MEAN PLATELET VOLUME 8.6 fl (7.0-11.0); MONO # 1.2 (0.1-0.6); MONO % 11.2 % (1.0-6.0); RBC 4.01 10^6/uL (3.5-6.1); RED CELL DISTRIBUTION WIDTH 15.2 % (11.5-14.5)
[2018-05-31 07:27] LABS: ALB/GLOB RATIO 1.1 (1.1-1.8); ALBUMIN 3.7 g/dL (3.0-4.8); ALT/SGPT 31 U/L (7-56); AST/SGOT 44 U/L (17-59); BLOOD UREA NITROGEN 16 mg/dL (7-21); CALCIUM 9.1 mg/dL (8.4-10.5); GFR NON-AFRICAN AMERICAN > 60
[2018-05-31] MEDS: Insulin Lispro (humaLOG) LOW Coverage SC SCH ×4 (08:30→21:51)
[2018-05-31] MEDS: Ferrous Sulfate 300 mg/5 mL Liq UD PO SCH ×2 (09:55→18:23)
[2018-05-31] MEDS: Mupirocin 2% Ointment 15 GM TUBE TOP SCH ×2 (09:56→18:23)
[2018-05-31] MEDS: Collagenase 250 Units/gm Ointment(30 gm) TOP SCH (09:57)
--- NOTE | 2018-05-31 14:52 | CP.PCM.PN ---
Subjective - Date & Time of Evaluation Date of Evaluation: 05/31/18 Time of Evaluation: 09:25 - Subjective Subjective: Afebrile, comfortable, no fevers. Objective - Vital Signs/Intake and Output Vital Signs (last 24 hours): Temp Pulse Resp BP Pulse Ox 98.4 F 78 18 110/72 97 05/30/18 16:46 05/30/18 16:46 05/30/18 16:46 05/30/18 16:46 05/30/18 16:46 Intake and Output: 05/30/18 05/31/18 18:59 06:59 Intake Total 120 Balance 120 - Medications Medications: Current Medications Aspirin (Aspirin Chewable) 81 mg PO DAILY [facility] Last Admin: 05/30/18 10:08 Dose: 81 mg Atorvastatin Calcium (Lipitor) 20 mg PO DIN [facility] Last Admin: 05/30/18 18:01 Dose: 20 mg Citalopram Hydrobromide (Celexa) 10 mg PO DAILY [facility] Last Admin: 05/30/18 10:08 Dose: 10 mg Collagenase (Santyl) 0 gm TOP DAILY [facility] Last Admin: 05/30/18 10:09 Dose: 1 u Ferrous Sulfate (Feosol Liq) 300 mg PO BID [facility] Last Admin: 05/30/18 18:01 Dose: 300 mg Insulin Human Lispro (Humalog Low) 0 units SC [facility] PRN Reason: Protocol Last Admin: 05/30/18 18:06 Dose: Not Given Lisinopril (Zestril) 10 mg PO DAILY [facility] Last Admin: 05/30/18 10:22 Dose: 10 mg Metformin HCl (Glucophage) 500 mg PO BID [facility] Last Admin: 05/30/18 18:01 Dose: 500 mg Mupirocin (Bactroban Ointment) 0 gm TOP BID [facility] Last Admin: 05/30/18 17:58 Dose: Not Given Pantoprazole Sodium (Protonix Ec Tab) 40 mg PO 0600 [facility] Last Admin: 05/30/18 05:59 Dose: 40 mg Thiamine HCl (Vitamin B1 Tab) 100 mg PO DAILY [facility] Last Admin: 05/30/18 10:48 Dose: 100 mg - Labs Labs: 05/25/18 06:05 05/25/18 06:05 PT 12.5 SECONDS (9.4-12.5) 12/09/17 10:00 INR 1.09 (0.93-1.08) H 12/09/17 10:00 APTT 28.3 Seconds (25.1-36.5) 11/30/17 05:30 - Constitutional Appears: Non-toxic, Chronically Ill - Head Exam Head Exam: NORMAL INSPECTION - ENT Exam ENT Exam: Mucous Membranes Moist - Neck Exam Neck Exam: absent: Meningismus - Respiratory Exam Respiratory Exam: Decreased Breath Sounds - Cardiovascular Exam Cardiovascular Exam: +S1, +S2 - GI/Abdominal Exam GI & Abdominal Exam: Soft. absent: Tenderness Assessment and Plan - Assessment and Plan (Free Text) Plan: Assessment S/P systemic inflammatory response syndrome, with no evidence of sepsis or infection, resolved S/P sepsis due to strep viridans and CoNS bacteremia from right gluteal and back cellulitis liver masses noted on ultrasound S/P multifocal HCAP on top of Influenza A infection S/P Sammie infection of sacral area as well peripheral vascular disease Plan continue to monitor clinically off antibiotics since he is at risk for nosocomial infections - repeat blood cx are negative, PCT is normal urine culture shows contamination - follow up further plans for the liver masses noted on ultrasound abdomen
--- NOTE | 2018-05-31 17:05 | CP.PCM.PN ---
<Donaldo Morinstevenrubén - Last Filed: 05/31/18 17:04> Subjective - Date & Time of Evaluation Date of Evaluation: 05/31/18 Time of Evaluation: 12:00 - Subjective Subjective: Podiatry Progress Note for Dr. Davis 58 y/o male seen and evaluated at bedside for right anterior ankle ulceration and left ankle abrasion. Patient seen with attending Dr. Davis at bedside. Patient is AAO x 3 and NAD at time of visit. Denies any acute overnight events or new pedal complaints. No heel offloading boots noted to feet at this time. Denies of any other pedal complains at this time. Objective - Vital Signs/Intake and Output Vital Signs (last 24 hours): Temp Pulse Resp BP Pulse Ox 99 F 98 H 18 119/75 94 L 05/31/18 08:28 05/31/18 09:56 05/31/18 08:28 05/31/18 09:56 05/31/18 08:28 Intake and Output: 05/31/18 05/31/18 06:59 18:59 Intake Total 1020 Balance 1020 - Medications Medications: Current Medications Aspirin (Aspirin Chewable) 81 mg PO DAILY [facility] Last Admin: 05/31/18 09:56 Dose: 81 mg Atorvastatin Calcium (Lipitor) 20 mg PO DIN [facility] Last Admin: 05/30/18 18:01 Dose: 20 mg Citalopram Hydrobromide (Celexa) 10 mg PO DAILY [facility] Last Admin: 05/31/18 09:56 Dose: 10 mg Collagenase (Santyl) 0 gm TOP DAILY [facility] Last Admin: 05/31/18 09:57 Dose: 1 u Ferrous Sulfate (Feosol Liq) 300 mg PO BID [facility] Last Admin: 05/31/18 09:55 Dose: 300 mg Insulin Human Lispro (Humalog Low) 0 units SC [facility] PRN Reason: Protocol Last Admin: 05/31/18 12:00 Dose: 3 u Lisinopril (Zestril) 10 mg PO DAILY [facility] Last Admin: 05/31/18 09:56 Dose: 10 mg Metformin HCl (Glucophage) 500 mg PO BID [facility] Last Admin: 05/31/18 09:55 Dose: 500 mg Mupirocin (Bactroban Ointment) 0 gm TOP BID [facility] Last Admin: 05/31/18 09:56 Dose: 1 u Pantoprazole Sodium (Protonix Ec Tab) 40 mg PO 0600 [facility] Last Admin: 05/31/18 05:29 Dose: 40 mg Thiamine HCl (Vitamin B1 Tab) 100 mg PO DAILY [facility] Last Admin: 05/31/18 09:56 Dose: 100 mg - Labs Labs: 05/31/18 06:45 05/31/18 06:45 PT 12.5 SECONDS (9.4-12.5) 12/09/17 10:00 INR 1.09 (0.93-1.08) H 12/09/17 10:00 APTT 28.3 Seconds (25.1-36.5) 11/30/17 05:30 - Constitutional Appears: Well, Non-toxic, No Acute Distress - Extremities Exam Additional comments: B/L Lower extremity exam: VASC: DP and PT faintly palpable b/l, CFT delayed > 3 seconds x 10 digits, temperature gradient cool to cool, no edema noted to the lower extremities NEURO: Epicritic and protective sensation grossly intact b/l DERM: Ulceration noted to the anterior aspect of right ankle at the level of the ankle joint measuring approximately 2 cm x 1 cm x 0.1 cm with mostly fibrotic wound base and small central eschar. Minimal periwound erythema noted. No streaking, no drainage, no tunneling, no abscess, no odor or drainage, no fluctuance noted, no other clinical signs of infection. No probe to bone. Abrasion noted to left anterior ankle, No clinical signs of infection or break in skin appreciated ORTHO: no pain with palpation to the entire lower extremity, no calf pain or tenderness appreciated, unable to assess MMT secondary to patient's cooperation - Neurological Exam Neurological Exam: Alert, Awake, Oriented x3 - Psychiatric Exam Psychiatric exam: Normal Affect, Normal Mood Assessment and Plan - Assessment and Plan (Free Text) Assessment: 58 y/o male seen at bedside for right anterior ankle ulceration and left ankle abrasion Plan: Patient seen and evaluated at bedside with Dr. Davis Chart, labs and vitals reviewed Afebrile, absent leukocytosis Patient Right ankle wound cleased with saline Bilateral ankles dressed with bactroban, optifoam No plan for surgical intervention at this time Stable from podiatry standpoint Podiatry will continue to follow while patient in house <Raciel Davis - Last Filed: 06/01/18 09:27> Objective - Vital Signs/Intake and Output Vital Signs (last 24 hours): Temp Pulse Resp BP Pulse Ox 98.5 F 984 H 20 104/67 94 L 06/01/18 06:00 06/01/18 06:00 06/01/18 06:00 06/01/18 06:00 06/01/18 06:00 Intake and Output: 06/01/18 06/01/18 06:59 18:59 Intake Total 1140 Balance 1140 - Medications Medications: Current Medications Aspirin (Aspirin Chewable) 81 mg PO DAILY [facility] Last Admin: 05/31/18 09:56 Dose: 81 mg Atorvastatin Calcium (Lipitor) 20 mg PO DIN [facility] Last Admin: 05/31/18 18:24 Dose: 20 mg Citalopram Hydrobromide (Celexa) 10 mg PO DAILY [facility] Last Admin: 05/31/18 09:56 Dose: 10 mg Collagenase (Santyl) 0 gm TOP DAILY [facility] Last Admin: 05/31/18 09:57 Dose: 1 u Ferrous Sulfate (Feosol Liq) 300 mg PO BID [facility] Last Admin: 05/31/18 18:23 Dose: 300 mg Insulin Human Lispro (Humalog Low) 0 units SC [facility] PRN Reason: Protocol Last Admin: 06/01/18 07:46 Dose: Not Given Lisinopril (Zestril) 10 mg PO DAILY [facility] Last Admin: 05/31/18 09:56 Dose: 10 mg Metformin HCl (Glucophage) 500 mg PO BID [facility] Last Admin: 05/31/18 18:23 Dose: 500 mg Mupirocin (Bactroban Ointment) 0 gm TOP BID [facility] Last Admin: 05/31/18 18:23 Dose: 1 u Pantoprazole Sodium (Protonix Ec Tab) 40 mg PO 0600 [facility] Last Admin: 06/01/18 05:48 Dose: 40 mg Thiamine HCl (Vitamin B1 Tab) 100 mg PO DAILY [facility] Last Admin: 05/31/18 09:56 Dose: 100 mg - Labs Labs: 05/31/18 06:45 05/31/18 06:45 PT 12.5 SECONDS (9.4-12.5) 12/09/17 10:00 INR 1.09 (0.93-1.08) H 12/09/17 10:00 APTT 28.3 Seconds (25.1-36.5) 11/30/17 05:30 Attending/Attestation - Attestation I have personally seen and examined this patient.: Yes I have fully participated in the care of the patient.: Yes I have reviewed all pertinent clinical information, including history, physical exam and plan: Yes
[2018-06-01] MEDS: Pantoprazole 40 mg EC Tab PO SCH (05:48)
[2018-06-01] MEDS: Insulin Lispro (humaLOG) LOW Coverage SC SCH ×4 (07:46→22:01)
[2018-06-01] MEDS: Mupirocin 2% Ointment 15 GM TUBE TOP SCH ×2 (09:29→17:07)
[2018-06-01] MEDS: Ferrous Sulfate 300 mg/5 mL Liq UD PO SCH ×2 (09:30→17:07)
--- NOTE | 2018-06-01 09:33 | PN ---
Copied To: Daniel Torres MD Attending MD: Daniel Torres MD DATE: 06/01/2018 SUBJECTIVE: The patient is in bed, in no acute distress, nontoxic. PHYSICAL EXAMINATION: VITAL SIGNS: Temperature is 98, blood pressure is 104/60, respiratory rate of 20. HEENT: Unremarkable. NECK: Supple. LUNGS: Have decreased breath sounds. HEART: Normal S1, S2. ABDOMEN: Soft, nontender. LABORATORY DATA: Laboratory examination reveals a white count of 11,000, hemoglobin of 9, platelets noted. BUN of 16, creatinine 0.6. Urinalysis is noted. MEDICATIONS: Current review of medications reveals the patient to have no antibiotics. ASSESSMENT AND PLAN: A 58-year-old male with a long hospital stay, status post systemic inflammatory response syndrome with no evidence of sepsis and infection, which is resolved and status post sepsis due to Streptococcus viridans and coagulase-negative Staph bacteremia, right gluteal and back cellulitis and liver masses noted on ultrasound, probable colon carcinoma with mets to the liver, currently off of antibiotics, afebrile. The patient is at risk for developing nosocomial infections and we will follow with you. Daniel Torres MD
[2018-06-01] MEDS: Collagenase 250 Units/gm Ointment(30 gm) TOP SCH (09:52)
--- NOTE | 2018-06-01 11:25 | CP.PCM.PN ---
<Gamaliel De Oliveiralissy - Last Filed: 06/01/18 11:22> Subjective - Date & Time of Evaluation Date of Evaluation: 06/01/18 Time of Evaluation: 11:22 - Subjective Subjective: Podiatry Progress Note for Dr. Davis 58 y/o male seen and evaluated at bedside for right anterior ankle ulceration and left ankle abrasion. Patient is resting comfortably in bed and in NAD at time of visit. Denies any acute overnight events or new pedal complaints. No heel offloading boots noted to feet at this time. Denies of any other pedal complains at this time. Objective - Vital Signs/Intake and Output Vital Signs (last 24 hours): Temp Pulse Resp BP Pulse Ox 98.5 F 84 20 114/67 94 L 06/01/18 06:00 06/01/18 09:31 06/01/18 06:00 06/01/18 09:31 06/01/18 06:00 Intake and Output: 06/01/18 06/01/18 06:59 18:59 Intake Total 1140 Balance 1140 - Medications Medications: Current Medications Aspirin (Aspirin Chewable) 81 mg PO DAILY [facility] Last Admin: 06/01/18 09:29 Dose: 81 mg Atorvastatin Calcium (Lipitor) 20 mg PO DIN [facility] Last Admin: 05/31/18 18:24 Dose: 20 mg Citalopram Hydrobromide (Celexa) 10 mg PO DAILY [facility] Last Admin: 06/01/18 09:29 Dose: 10 mg Collagenase (Santyl) 0 gm TOP DAILY [facility] Last Admin: 06/01/18 09:52 Dose: 1 u Ferrous Sulfate (Feosol Liq) 300 mg PO BID [facility] Last Admin: 06/01/18 09:30 Dose: 300 mg Insulin Human Lispro (Humalog Low) 0 units SC [facility] PRN Reason: Protocol Last Admin: 06/01/18 07:46 Dose: Not Given Lisinopril (Zestril) 10 mg PO DAILY [facility] Last Admin: 06/01/18 09:31 Dose: 10 mg Metformin HCl (Glucophage) 500 mg PO BID [facility] Last Admin: 06/01/18 09:30 Dose: 500 mg Mupirocin (Bactroban Ointment) 0 gm TOP BID [facility] Last Admin: 06/01/18 09:29 Dose: 1 u Pantoprazole Sodium (Protonix Ec Tab) 40 mg PO 0600 [facility] Last Admin: 06/01/18 05:48 Dose: 40 mg Thiamine HCl (Vitamin B1 Tab) 100 mg PO DAILY [facility] Last Admin: 06/01/18 09:31 Dose: 100 mg - Labs Labs: 05/31/18 06:45 05/31/18 06:45 PT 12.5 SECONDS (9.4-12.5) 12/09/17 10:00 INR 1.09 (0.93-1.08) H 12/09/17 10:00 APTT 28.3 Seconds (25.1-36.5) 11/30/17 05:30 - Constitutional Appears: Well, Non-toxic, No Acute Distress - Head Exam Head Exam: ATRAUMATIC, NORMOCEPHALIC - Extremities Exam Additional comments: B/L Lower extremity exam: VASC: DP and PT faintly palpable b/l, CFT delayed > 3 seconds x 10 digits, temperature gradient cool to cool, no edema noted to the lower extremities NEURO: Epicritic and protective sensation grossly intact b/l DERM: Ulceration noted to the anterior aspect of right ankle at the level of the ankle joint measuring approximately 2 cm x 1 cm x 0.1 cm with mostly fibrotic wound base and small central eschar. Minimal periwound erythema noted. No streaking, no drainage, no tunneling, no abscess, no odor or drainage, no fluctuance noted, no other clinical signs of infection. No probe to bone. Abrasion noted to left anterior ankle, No clinical signs of infection or break in skin appreciated ORTHO: no pain with palpation to the entire lower extremity, no calf pain or tenderness appreciated, unable to assess MMT secondary to patient's cooperation - Neurological Exam Neurological Exam: Alert, Awake, Oriented x3 - Psychiatric Exam Psychiatric exam: Normal Affect, Normal Mood Assessment and Plan - Assessment and Plan (Free Text) Assessment: 58 y/o male seen at bedside for right anterior ankle ulceration and left ankle abrasion Plan: Patient seen and evaluated at bedside Plan discussed with attending Dr. Davis Chart, labs and vitals reviewed Afebrile, absent leukocytosis Bilateral ankles dressed with bactroban, optifoam No plan for surgical intervention at this time Stable from podiatry standpoint Podiatry will continue to follow while patient in house <Raciel Davis - Last Filed: 06/01/18 14:21> Objective - Vital Signs/Intake and Output Vital Signs (last 24 hours): Temp Pulse Resp BP Pulse Ox 98.5 F 84 20 114/67 94 L 06/01/18 06:00 06/01/18 09:31 06/01/18 06:00 06/01/18 09:31 06/01/18 06:00 Intake and Output: 06/01/18 06/01/18 06:59 18:59 Intake Total 1140 Balance 1140 - Medications Medications: Current Medications Aspirin (Aspirin Chewable) 81 mg PO DAILY [facility] Last Admin: 06/01/18 09:29 Dose: 81 mg Atorvastatin Calcium (Lipitor) 20 mg PO DIN [facility] Last Admin: 05/31/18 18:24 Dose: 20 mg Citalopram Hydrobromide (Celexa) 10 mg PO DAILY [facility] Last Admin: 06/01/18 09:29 Dose: 10 mg Collagenase (Santyl) 0 gm TOP DAILY [facility] Last Admin: 06/01/18 09:52 Dose: 1 u Ferrous Sulfate (Feosol Liq) 300 mg PO BID [facility] Last Admin: 06/01/18 09:30 Dose: 300 mg Insulin Human Lispro (Humalog Low) 0 units [place] [facility] PRN Reason: Protocol Last Admin: 06/01/18 12:29 Dose: 1 u Lisinopril (Zestril) 10 mg PO DAILY [facility] Last Admin: 06/01/18 09:31 Dose: 10 mg Metformin HCl (Glucophage) 500 mg PO BID [facility] Last Admin: 06/01/18 09:30 Dose: 500 mg Mupirocin (Bactroban Ointment) 0 gm TOP BID [facility] Last Admin: 06/01/18 09:29 Dose: 1 u Pantoprazole Sodium (Protonix Ec Tab) 40 mg PO 0600 [facility] Last Admin: 06/01/18 05:48 Dose: 40 mg Thiamine HCl (Vitamin B1 Tab) 100 mg PO DAILY [facility] Last Admin: 06/01/18 09:31 Dose: 100 mg - Labs Labs: 05/31/18 06:45 05/31/18 06:45 PT 12.5 SECONDS (9.4-12.5) 12/09/17 10:00 INR 1.09 (0.93-1.08) H 12/09/17 10:00 APTT 28.3 Seconds (25.1-36.5) 11/30/17 05:30 Attending/Attestation - Attestation I have personally seen and examined this patient.: Yes I have fully participated in the care of the patient.: Yes I have reviewed all pertinent clinical information, including history, physical exam and plan: Yes
--- NOTE | 2018-06-01 14:35 | CP.PCM.PN ---
<Mariano Morin - Last Filed: 06/01/18 14:32> Subjective - Date & Time of Evaluation Date of Evaluation: 06/01/18 Time of Evaluation: 14:32 - Subjective Subjective: Mariano Morin DO PGY1 - Internal Medicine Grade Recorder - Hospital Progress Note Patient seen and evaluated at bedside this AM; No issues reported overnight; no complaints voiced at this time. Patient had a a BM this AM. He is at baseline today. 12 system ROS negative otherwise. Objective - Vital Signs/Intake and Output Vital Signs (last 24 hours): Temp Pulse Resp BP Pulse Ox 98.5 F 84 20 114/67 94 L 06/01/18 06:00 06/01/18 09:31 06/01/18 06:00 06/01/18 09:31 06/01/18 06:00 Intake and Output: 06/01/18 06/01/18 06:59 18:59 Intake Total 1140 Balance 1140 - Medications Medications: Current Medications Aspirin (Aspirin Chewable) 81 mg PO DAILY [facility] Last Admin: 06/01/18 09:29 Dose: 81 mg Atorvastatin Calcium (Lipitor) 20 mg PO DIN [facility] Last Admin: 05/31/18 18:24 Dose: 20 mg Citalopram Hydrobromide (Celexa) 10 mg PO DAILY [facility] Last Admin: 06/01/18 09:29 Dose: 10 mg Collagenase (Santyl) 0 gm TOP DAILY [facility] Last Admin: 06/01/18 09:52 Dose: 1 u Ferrous Sulfate (Feosol Liq) 300 mg PO BID [facility] Last Admin: 06/01/18 09:30 Dose: 300 mg Insulin Human Lispro (Humalog Low) 0 units SC [facility] PRN Reason: Protocol Last Admin: 06/01/18 12:29 Dose: 1 u Lisinopril (Zestril) 10 mg PO DAILY [facility] Last Admin: 06/01/18 09:31 Dose: 10 mg Metformin HCl (Glucophage) 500 mg PO BID [facility] Last Admin: 06/01/18 09:30 Dose: 500 mg Mupirocin (Bactroban Ointment) 0 gm TOP BID [facility] Last Admin: 06/01/18 09:29 Dose: 1 u Pantoprazole Sodium (Protonix Ec Tab) 40 mg PO 0600 [facility] Last Admin: 06/01/18 05:48 Dose: 40 mg Thiamine HCl (Vitamin B1 Tab) 100 mg PO DAILY [facility] Last Admin: 06/01/18 09:31 Dose: 100 mg - Labs Labs: 05/31/18 06:45 05/31/18 06:45 PT 12.5 SECONDS (9.4-12.5) 12/09/17 10:00 INR 1.09 (0.93-1.08) H 12/09/17 10:00 APTT 28.3 Seconds (25.1-36.5) 11/30/17 05:30 Physical Exam - Constitutional Appears: Non-toxic, No Acute Distress, Awake at baseline - Head Exam Head Exam: ATRAUMATIC, NORMAL INSPECTION, NORMOCEPHALIC - Eye Exam Eye Exam: EOMI, Normal appearance, PERRL - ENT Exam ENT Exam: Mucous Membranes Moist, Normal Oropharynx - Neck Exam Neck Exam: Full ROM, Normal Inspection - Respiratory Exam Respiratory Exam: Clear to Ausculation Bilateral, NORMAL BREATHING PATTERN, no rales, wheezes or rhonchi - Cardiovascular Exam Cardiovascular Exam: REGULAR RHYTHM, +S1, +S2 - GI/Abdominal Exam GI & Abdominal Exam: Soft, Normal Bowel Sounds - Extremities Exam Extremities Exam: Normal Capillary Refill, Normal Inspection Additional comments: R foot bandaged; dressing is clean dry and intact; Dressing on L foot CDI w/ optifoam - Back Exam Back Exam: NORMAL INSPECTION - Neurological Exam Neurological Exam: Alert, Awake Additional comments: Oriented x2 - Psychiatric Exam Psychiatric exam: Flat Affect, Indifferent to questions this AM; short one word responses. - Skin Skin Exam: Dry, Intact, Warm Assessment and Plan - Assessment and Plan (Free Text) Assessment: 57 year old male unknown PMHx admitted on 11/29/17 for AMS, right hip cellulitis , multifocal pneumonia, influenza A, strep viridians bacteremia with findings of stroke on MRI - acute vs. 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 Patient was treated for bacteremia with IV abx. Guardianship establishment pending court date; potentially pushed back into Mid June at this time. The patient remains to be at his medical and mental baseline at this time. A list of his medical problems and active management can be found below: Plan: Anemia: H/H slowly downtrending over hospitalization; patient has had + heme occult test as well as known colonic polyp Most likely Fe+ deficiency in nature Patient with a microcytic anemia Iron level low TIBC wnl Retic count pending Started ferrous sulfate PO BID 05/26 Continue monitoring for constipation given new onset iron supplement Altered mental status At baseline this AM Cont. delirium precautions PT -patient refusing to participate Cont ASA 81 QD / LIPITOR 20 QD Dorsal Right Foot Ulcer Bandaged. Non purulent. Podiatry recommendations appreciated Wound care following [facility] No antibiotics warranted at this time per ID Coag negative Staphylococcus bacteremia - resolved Last bld clx negative 12/04/17 with completion of 6 week course of antibiotics Monitor WBC, ESR, CRP weekly Echocardiogram unable to rule out vegetations, family is unavailable for consent for TAHIR Colonic mass CT Abd/Pelvis showing colonic mass and hepatic lesions GI consulted: follow recs Flex sig/colonoscopy refused by patient Family unable to be contacted for consent Diabetes mellitus type 2 Cont RISS low Cont Metformin 500mg BID Cont accuchecks Carb consistent diet HTN BP Stable, continue to monitor Cont Lisinopril 10 QD Cont Amlodipine 10 mg PO QD Leukocytosis - RESOLVED WBC elevated 05/17 Patient srinivasan cultured Blood cx negative x2 after 48H Urine cx w/ multiple species ML contaminated Abd U/S - 7mm common bile duct dilatation and gallstones; Hepatic lesions measuring up to 4.9cm and 3.8 cm; compared to prev abd U/S from 12/05 lesions measured 4.1cm and 3.1cm No RUQ tenderness appreciated on exam; ID following, appreciate reccs Affective disorder Cont Celexa 10mg PO Daily Constipation Colace 100mg BID Miralax 17gm BID Discontinued Lactulose Hx ETOH Abuse Cont Thiamine Cont Folic Acid Cont Multivitamin DVT Prophylaxis: SCDs Dispo: Patient continues to display a lack of decision making capacity: Guardianship status yet to be determined. Pt. seen, examined, and discussed with attending physician Dr. Iraj Morin DO PGY1 Internal Medicine Grade Recorder - Pager [phone] <Sixto Galo - Last Filed: 06/01/18 14:47> Objective - Vital Signs/Intake and Output Vital Signs (last 24 hours): Temp Pulse Resp BP Pulse Ox 98.5 F 84 20 114/67 94 L 06/01/18 06:00 06/01/18 09:31 06/01/18 06:00 06/01/18 09:31 06/01/18 06:00 Intake and Output: 06/01/18 06/01/18 06:59 18:59 Intake Total 1140 Balance 1140 - Medications Medications: Current Medications Aspirin (Aspirin Chewable) 81 mg PO DAILY [facility] Last Admin: 06/01/18 09:29 Dose: 81 mg Atorvastatin Calcium (Lipitor) 20 mg PO DIN [facility] Last Admin: 05/31/18 18:24 Dose: 20 mg Citalopram Hydrobromide (Celexa) 10 mg PO DAILY [facility] Last Admin: 06/01/18 09:29 Dose: 10 mg Collagenase (Santyl) 0 gm TOP DAILY [facility] Last Admin: 06/01/18 09:52 Dose: 1 u Ferrous Sulfate (Feosol Liq) 300 mg PO BID [facility] Last Admin: 06/01/18 09:30 Dose: 300 mg Insulin Human Lispro (Humalog Low) 0 units SC [facility] PRN Reason: Protocol Last Admin: 06/01/18 12:29 Dose: 1 u Lisinopril (Zestril) 10 mg PO DAILY [facility] Last Admin: 06/01/18 09:31 Dose: 10 mg Metformin HCl (Glucophage) 500 mg PO BID [facility] Last Admin: 06/01/18 09:30 Dose: 500 mg Mupirocin (Bactroban Ointment) 0 gm TOP BID [facility] Last Admin: 06/01/18 09:29 Dose: 1 u Pantoprazole Sodium (Protonix Ec Tab) 40 mg PO 0600 [facility] Last Admin: 06/01/18 05:48 Dose: 40 mg Thiamine HCl (Vitamin B1 Tab) 100 mg PO DAILY [facility] Last Admin: 06/01/18 09:31 Dose: 100 mg - Labs Labs: 05/31/18 06:45 05/31/18 06:45 PT 12.5 SECONDS (9.4-12.5) 12/09/17 10:00 INR 1.09 (0.93-1.08) H 12/09/17 10:00 APTT 28.3 Seconds (25.1-36.5) 11/30/17 05:30 Attending/Attestation - Attestation I have personally seen and examined this patient.: Yes I have fully participated in the care of the patient.: Yes I have reviewed all pertinent clinical information, including history, physical exam and plan: Yes Notes (Text): 06/01/18 14:44 57 year old male who was admitted with altered mental status. He was found to have bacteremia, cellulitis and pneumonia for which he has completed antibiotics. He also had CVA. He is on aspirin and statin. His mental status is at his baseline and comfortable. Podiatry is following for foot ulceration. He is pending placement/guardianship. Court date has now been again postponed to next month. Sixto Galo MD Hospitalist.
[2018-06-02] MEDS: Pantoprazole 40 mg EC Tab PO SCH (05:45)
--- NOTE | 2018-06-02 07:24 | CP.PCM.PN ---
<Mariano Morin - Last Filed: 06/02/18 12:49> Subjective - Date & Time of Evaluation Date of Evaluation: 06/02/18 Time of Evaluation: 07:24 - Subjective Subjective: Mariano Morin DO PGY1 - Internal Medicine Internal [employer] Agent - Hospital Progress Note No acute events overnight; no issues reported by nursing 12 system ROS negative Doesn't want to get out of bed No acute issues or complaints voiced. Patient is at baseline. Objective - Vital Signs/Intake and Output Vital Signs (last 24 hours): Temp Pulse Resp BP Pulse Ox 97.2 F L 76 18 110/60 95 06/01/18 18:00 06/01/18 18:00 06/01/18 18:00 06/01/18 18:00 06/01/18 18:00 Intake and Output: 06/02/18 06/02/18 06:59 18:59 Intake Total 1800 Balance 1800 - Medications Medications: Current Medications Aspirin (Aspirin Chewable) 81 mg PO DAILY [facility] Last Admin: 06/01/18 09:29 Dose: 81 mg Atorvastatin Calcium (Lipitor) 20 mg PO DIN [facility] Last Admin: 06/01/18 17:08 Dose: 20 mg Citalopram Hydrobromide (Celexa) 10 mg PO DAILY [facility] Last Admin: 06/01/18 09:29 Dose: 10 mg Collagenase (Santyl) 0 gm TOP DAILY [facility] Last Admin: 06/01/18 09:52 Dose: 1 u Ferrous Sulfate (Feosol Liq) 300 mg PO BID [facility] Last Admin: 06/01/18 17:07 Dose: 300 mg Insulin Human Lispro (Humalog Low) 0 units SC [facility] PRN Reason: Protocol Last Admin: 06/01/18 22:01 Dose: Not Given Lisinopril (Zestril) 10 mg PO DAILY [facility] Last Admin: 06/01/18 09:31 Dose: 10 mg Metformin HCl (Glucophage) 500 mg PO BID [facility] Last Admin: 06/01/18 17:08 Dose: 500 mg Mupirocin (Bactroban Ointment) 0 gm TOP BID [facility] Last Admin: 06/01/18 17:07 Dose: 1 u Pantoprazole Sodium (Protonix Ec Tab) 40 mg PO 0600 [facility] Last Admin: 06/02/18 05:45 Dose: 40 mg Thiamine HCl (Vitamin B1 Tab) 100 mg PO DAILY [facility] Last Admin: 06/01/18 09:31 Dose: 100 mg - Labs Labs: 05/31/18 06:45 05/31/18 06:45 PT 12.5 SECONDS (9.4-12.5) 12/09/17 10:00 INR 1.09 (0.93-1.08) H 12/09/17 10:00 APTT 28.3 Seconds (25.1-36.5) 11/30/17 05:30 Physical Exam - Constitutional Appears: Comfortable in bed, no distress or agitation noted - Head Exam Head Exam: ATRAUMATIC, NORMAL INSPECTION, NORMOCEPHALIC - Eye Exam Eye Exam: EOMI, Normal appearance, PERRL - ENT Exam ENT Exam: Mucous Membranes Moist, Normal Oropharynx - Neck Exam Neck Exam: Full ROM, Normal Inspection - Respiratory Exam Respiratory Exam: Clear to Ausculation Bilateral, NORMAL BREATHING PATTERN, no rales, wheezes or rhonchi - Cardiovascular Exam Cardiovascular Exam: REGULAR RHYTHM, +S1, +S2 - GI/Abdominal Exam GI & Abdominal Exam: Soft, Normal Bowel Sounds - Extremities Exam Extremities Exam: Normal Capillary Refill, Normal Inspection Additional comments: Both L and R foot w/ optifoam bandages on at this time. Dressings are CDI - Back Exam Back Exam: NORMAL INSPECTION - Neurological Exam Neurological Exam: Alert, Awake Additional comments: Oriented x2 - Psychiatric Exam Psychiatric exam: No change in affect from day prior; still with flat affect; short one word answers, Minimally conversant - Skin Skin Exam: Dry, Intact, Warm Assessment and Plan - Assessment and Plan (Free Text) Assessment: 57 year old male unknown PMHx admitted on 11/29/17 for AMS, right hip cellulitis , multifocal pneumonia, influenza A, strep viridians bacteremia with findings of stroke on MRI - acute vs. 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 Patient was treated for bacteremia with IV abx. Guardianship establishment pending court date; pending for 06/30/2018 The patient remains to be at his medical and mental baseline at this time. A list of his medical problems and active management can be found below: Plan: Anemia: H/H slowly downtrending over hospitalization; patient has had + heme occult test as well as known colonic polyp Most likely Fe+ deficiency in nature Patient with a microcytic anemia Iron level low TIBC wnl Retic count pending Started ferrous sulfate PO BID 05/26 Continue monitoring for constipation given new onset iron supplement Altered mental status At baseline this AM Cont. delirium precautions PT -patient refusing to participate Cont ASA 81 QD / LIPITOR 20 QD Dorsal Right Foot Ulcer Bandaged. Non purulent. Podiatry recommendations appreciated Wound care following On [facility] No antibiotics warranted at this time per ID Coag negative Staphylococcus bacteremia - resolved Last bld clx negative 12/04/17 with completion of 6 week course of antibiotics Monitor WBC, ESR, CRP weekly Echocardiogram unable to rule out vegetations, family is unavailable for consent for TAHIR Colonic mass CT Abd/Pelvis showing colonic mass and hepatic lesions GI consulted: follow recs Flex sig/colonoscopy refused by patient Family unable to be contacted for consent Diabetes mellitus type 2 Cont ISS low Cont Metformin 500mg BID Cont accuchecks Carb consistent diet HTN BP Stable, continue to monitor Cont Lisinopril 10 QD Pressures are currently well controlled without Amlodipine 10 mg PO QD Can resume if pressures increase Leukocytosis - RESOLVED WBC elevated 05/17 Patient srinivasan cultured Blood cx negative x2 after 48H Urine cx w/ multiple species ML contaminated Abd U/S - 7mm common bile duct dilatation and gallstones; Hepatic lesions measuring up to 4.9cm and 3.8 cm; compared to prev abd U/S from 12/05 lesions measured 4.1cm and 3.1cm No RUQ tenderness appreciated on exam; ID following, appreciate reccs Affective disorder Cont Celexa 10mg PO Daily Constipation Colace 100mg BID Miralax 17gm BID Discontinued Lactulose Hx ETOH Abuse Cont Thiamine Cont Folic Acid Cont Multivitamin DVT Prophylaxis: SCDs Dispo: Patient continues to display a lack of decision making capacity: Guardianship status yet to be determined; court date is tentative for 06/30/2018 Pt. seen, examined, and discussed with attending physician Dr. Iraj Morin DO PGY1 Internal Medicine Internal Revenue Service Agent - Pager [phone] <Sixto Galo - Last Filed: 06/02/18 14:36> Objective - Vital Signs/Intake and Output Vital Signs (last 24 hours): Temp Pulse Resp BP Pulse Ox 98.2 F 70 16 118/68 100 06/02/18 08:00 06/02/18 10:09 06/02/18 08:00 06/02/18 10:09 06/02/18 08:00 Intake and Output: 06/02/18 06/02/18 06:59 18:59 Intake Total 1800 Balance 1800 - Medications Medications: Current Medications Aspirin (Aspirin Chewable) 81 mg PO DAILY [facility] Last Admin: 06/02/18 10:09 Dose: 81 mg Atorvastatin Calcium (Lipitor) 20 mg PO DIN [facility] Last Admin: 06/01/18 17:08 Dose: 20 mg Citalopram Hydrobromide (Celexa) 10 mg PO DAILY [facility] Last Admin: 06/02/18 10:09 Dose: 10 mg Collagenase (Santyl) 0 gm TOP DAILY [facility] Last Admin: 06/02/18 10:10 Dose: 1 u Ferrous Sulfate (Feosol Liq) 300 mg PO BID [facility] Last Admin: 06/02/18 10:09 Dose: 300 mg Insulin Human Lispro (Humalog Low) 0 units SC [facility] PRN Reason: Protocol Last Admin: 06/02/18 11:17 Dose: Not Given Lisinopril (Zestril) 10 mg PO DAILY [facility] Last Admin: 06/02/18 10:09 Dose: 10 mg Metformin HCl (Glucophage) 500 mg PO BID [facility] Last Admin: 06/02/18 10:09 Dose: 500 mg Mupirocin (Bactroban Ointment) 0 gm TOP BID [facility] Last Admin: 06/02/18 10:09 Dose: 1 u Pantoprazole Sodium (Protonix Ec Tab) 40 mg PO 0600 [facility] Last Admin: 06/02/18 05:45 Dose: 40 mg Thiamine HCl (Vitamin B1 Tab) 100 mg PO DAILY [facility] Last Admin: 06/02/18 10:09 Dose: 100 mg - Labs Labs: 05/31/18 06:45 05/31/18 06:45 PT 12.5 SECONDS (9.4-12.5) 12/09/17 10:00 INR 1.09 (0.93-1.08) H 12/09/17 10:00 APTT 28.3 Seconds (25.1-36.5) 11/30/17 05:30 Attending/Attestation - Attestation I have personally seen and examined this patient.: Yes I have fully participated in the care of the patient.: Yes I have reviewed all pertinent clinical information, including history, physical exam and plan: Yes Notes (Text): 06/02/18 14:36 57 year old male who was admitted with altered mental status. He was found to have bacteremia, cellulitis and pneumonia for which he has completed antibiotics. He also had CVA. He is on aspirin and statin. His mental status is at his baseline. No new complaints this morning. Podiatry is following for foot ulceration. He is pending placement/guardianship. Court date is next month. Sixto Galo MD Hospitalist.
--- NOTE | 2018-06-02 10:05 | CP.PCM.PN ---
<Kavitha Morin - Last Filed: 06/02/18 10:03> Subjective - Date & Time of Evaluation Date of Evaluation: 06/02/18 Time of Evaluation: 10:03 - Subjective Subjective: Podiatry Progress Note for Dr. Davis 58 y/o male seen and evaluated at bedside for right anterior ankle ulceration and left ankle abrasion. Patient is resting comfortably in bed and in NAD at time of visit. Denies any acute overnight events or new pedal complaints. No heel offloading boots noted to feet at this time. Denies of any other pedal complains at this time. Objective - Vital Signs/Intake and Output Vital Signs (last 24 hours): Temp Pulse Resp BP Pulse Ox 98.2 F 73 16 115/65 100 06/02/18 08:00 06/02/18 08:00 06/02/18 08:00 06/02/18 08:00 06/02/18 08:00 Intake and Output: 06/02/18 06/02/18 06:59 18:59 Intake Total 1800 Balance 1800 - Medications Medications: Current Medications Aspirin (Aspirin Chewable) 81 mg PO DAILY [facility] Last Admin: 06/01/18 09:29 Dose: 81 mg Atorvastatin Calcium (Lipitor) 20 mg PO DIN [facility] Last Admin: 06/01/18 17:08 Dose: 20 mg Citalopram Hydrobromide (Celexa) 10 mg PO DAILY [facility] Last Admin: 06/01/18 09:29 Dose: 10 mg Collagenase (Santyl) 0 gm TOP DAILY [facility] Last Admin: 06/01/18 09:52 Dose: 1 u Ferrous Sulfate (Feosol Liq) 300 mg PO BID [facility] Last Admin: 06/01/18 17:07 Dose: 300 mg Insulin Human Lispro (Humalog Low) 0 units SC [facility] PRN Reason: Protocol Last Admin: 06/01/18 22:01 Dose: Not Given Lisinopril (Zestril) 10 mg PO DAILY [facility] Last Admin: 06/01/18 09:31 Dose: 10 mg Metformin HCl (Glucophage) 500 mg PO BID [facility] Last Admin: 06/01/18 17:08 Dose: 500 mg Mupirocin (Bactroban Ointment) 0 gm TOP BID [facility] Last Admin: 06/01/18 17:07 Dose: 1 u Pantoprazole Sodium (Protonix Ec Tab) 40 mg PO 0600 [facility] Last Admin: 06/02/18 05:45 Dose: 40 mg Thiamine HCl (Vitamin B1 Tab) 100 mg PO DAILY [facility] Last Admin: 06/01/18 09:31 Dose: 100 mg - Labs Labs: 05/31/18 06:45 05/31/18 06:45 PT 12.5 SECONDS (9.4-12.5) 12/09/17 10:00 INR 1.09 (0.93-1.08) H 12/09/17 10:00 APTT 28.3 Seconds (25.1-36.5) 11/30/17 05:30 - Constitutional Appears: Well, Non-toxic, No Acute Distress - Extremities Exam Additional comments: B/L Lower extremity exam: VASC: DP and PT faintly palpable b/l, CFT delayed > 3 seconds x 10 digits, temperature gradient cool to cool, no edema noted to the lower extremities NEURO: Epicritic and protective sensation grossly intact b/l DERM: Ulceration noted to the anterior aspect of right ankle at the level of the ankle joint measuring approximately 2 cm x 1 cm x 0.1 cm, wound is mainly fibro-grannular. Minimal periwound erythema noted. No streaking, no drainage, no tunneling, no abscess, no odor or drainage, no fluctuance noted, no other clinical signs of infection. No probe to bone. Abrasion noted to left anterior ankle, No clinical signs of infection or break in skin appreciated ORTHO: no pain with palpation to the entire lower extremity, no calf pain or tenderness appreciated, unable to assess MMT secondary to patient's cooperation - Neurological Exam Neurological Exam: Alert, Awake, Oriented x3 - Psychiatric Exam Psychiatric exam: Normal Affect, Normal Mood Assessment and Plan - Assessment and Plan (Free Text) Assessment: 58 y/o male seen at bedside for right anterior ankle ulceration and left ankle abrasion Plan: Patient seen and evaluated at bedside with attending Dr. Davis Chart, labs and vitals reviewed Afebrile, absent leukocytosis Bilateral ankles dressed with bactroban, optifoam No plan for surgical intervention at this time Stable from podiatry standpoint Podiatry will continue to follow while patient in house <Raciel Davis - Last Filed: 06/03/18 17:00> Objective - Vital Signs/Intake and Output Vital Signs (last 24 hours): Temp Pulse Resp BP Pulse Ox 98.2 F 80 18 106/68 96 06/03/18 16:42 06/03/18 16:42 06/03/18 16:42 06/03/18 16:42 06/03/18 16:42 Intake and Output: 06/03/18 06/03/18 06:59 18:59 Intake Total 1320 Balance 1320 - Medications Medications: Current Medications Aspirin (Aspirin Chewable) 81 mg PO DAILY [facility] Last Admin: 06/03/18 10:16 Dose: 81 mg Atorvastatin Calcium (Lipitor) 20 mg PO DIN [facility] Last Admin: 06/02/18 18:26 Dose: 20 mg Citalopram Hydrobromide (Celexa) 10 mg PO DAILY [facility] Last Admin: 06/03/18 10:15 Dose: 10 mg Collagenase (Santyl) 0 gm TOP DAILY [facility] Last Admin: 06/03/18 10:21 Dose: Not Given Ferrous Sulfate (Feosol Liq) 300 mg PO BID [facility] Last Admin: 06/03/18 10:15 Dose: 300 mg Insulin Human Lispro (Humalog Low) 0 units SC [facility] PRN Reason: Protocol Last Admin: 06/03/18 12:28 Dose: Not Given Lisinopril (Zestril) 10 mg PO DAILY [facility] Last Admin: 06/03/18 10:15 Dose: 10 mg Metformin HCl (Glucophage) 500 mg PO BID [facility] Last Admin: 06/03/18 10:16 Dose: 500 mg Mupirocin (Bactroban Ointment) 0 gm TOP BID [facility] Last Admin: 06/03/18 10:18 Dose: 1 applic Pantoprazole Sodium (Protonix Ec Tab) 40 mg PO 0600 [facility] Last Admin: 06/03/18 05:32 Dose: 40 mg Thiamine HCl (Vitamin B1 Tab) 100 mg PO DAILY [facility] Last Admin: 06/03/18 10:16 Dose: 100 mg - Labs Labs: 05/31/18 06:45 05/31/18 06:45 PT 12.5 SECONDS (9.4-12.5) 12/09/17 10:00 INR 1.09 (0.93-1.08) H 12/09/17 10:00 APTT 28.3 Seconds (25.1-36.5) 11/30/17 05:30 Attending/Attestation - Attestation I have personally seen and examined this patient.: Yes I have fully participated in the care of the patient.: Yes I have reviewed all pertinent clinical information, including history, physical exam and plan: Yes
[2018-06-02] MEDS: Ferrous Sulfate 300 mg/5 mL Liq UD PO SCH ×2 (10:09→18:25)
[2018-06-02] MEDS: Mupirocin 2% Ointment 15 GM TUBE TOP SCH ×2 (10:09→18:25)
[2018-06-02] MEDS: Insulin Lispro (humaLOG) LOW Coverage SC SCH ×3 (10:10→22:07)
[2018-06-02] MEDS: Collagenase 250 Units/gm Ointment(30 gm) TOP SCH (10:10)
--- NOTE | 2018-06-02 17:40 | PN ---
Copied To: Daniel Torres MD Attending MD: Daniel Torres MD DATE: 06/02/2018 SUBJECTIVE: The patient is in bed, in no acute distress, nontoxic. PHYSICAL EXAMINATION: VITAL SIGNS: Temperature is 97, blood pressure is 100/60, respiratory rate of 18. HEENT: Unremarkable. NECK: Supple. LUNGS: Have decreased breath sounds. HEART: Normal S1, S2. ABDOMINAL: Soft, nontender. LABORATORY EXAMINATION: Reveals the patient's laboratories are reviewed. ASSESSMENT AND PLAN: A 57-year-old male with long hospital stay, status post systemic inflammatory response syndrome with no evidence of sepsis at this time. The patient was admitted initially with strep viridans and coag-negative staph bacteremia, right gluteal and back cellulitis, liver masses have been seen, possible colon cancer with metastases to the liver. Currently off of antibiotics. The patient is at risk for developing nosocomial infection. Review of the orders reveals no antibiotics at this time. Daniel Torres MD : 06/02/2018 16:52:17
[2018-06-03] MEDS: Pantoprazole 40 mg EC Tab PO SCH (05:32)
--- NOTE | 2018-06-03 06:22 | CP.PCM.PN ---
<Mariano Morin - Last Filed: 06/03/18 12:41> Subjective - Date & Time of Evaluation Date of Evaluation: 06/03/18 Time of Evaluation: 06:21 - Subjective Subjective: Mariano Morin DO PGY1 Internal Medicine Financial Aids Officer Patient is doing well this morning, in bed watching TV. No issues voiced when patient is asked; no complaints offered by nursing. 12 system ROS is negative He is at baseline Objective - Vital Signs/Intake and Output Vital Signs (last 24 hours): Temp Pulse Resp BP Pulse Ox 97.8 F 88 20 96/61 L 99 06/02/18 17:03 06/02/18 17:03 06/02/18 17:03 06/02/18 17:03 06/02/18 17:03 Intake and Output: 06/02/18 06/03/18 18:59 06:59 Intake Total 1320 Balance 1320 - Medications Medications: Current Medications Aspirin (Aspirin Chewable) 81 mg PO DAILY [facility] Atorvastatin Calcium (Lipitor) 20 mg PO DIN [facility] Last Admin: 06/02/18 18:26 Dose: 20 mg Citalopram Hydrobromide (Celexa) 10 mg PO DAILY [facility] Collagenase (Santyl) 0 gm TOP DAILY [facility] Ferrous Sulfate (Feosol Liq) 300 mg PO BID [facility] Last Admin: 06/02/18 18:25 Dose: 300 mg Insulin Human Lispro (Humalog Low) 0 units [facility] PRN Reason: Protocol Last Admin: 06/02/18 22:07 Dose: Not Given Lisinopril (Zestril) 10 mg PO DAILY [facility] Metformin HCl (Glucophage) 500 mg PO BID [facility] Last Admin: 06/02/18 18:26 Dose: 500 mg Mupirocin (Bactroban Ointment) 0 gm TOP BID [facility] Last Admin: 06/02/18 18:25 Dose: 1 applic Pantoprazole Sodium (Protonix Ec Tab) 40 mg PO 0600 [facility] Last Admin: 06/03/18 05:32 Dose: 40 mg Thiamine HCl (Vitamin B1 Tab) 100 mg PO DAILY [facility] - Labs Labs: 05/31/18 06:45 05/31/18 06:45 PT 12.5 SECONDS (9.4-12.5) 12/09/17 10:00 INR 1.09 (0.93-1.08) H 12/09/17 10:00 APTT 28.3 Seconds (25.1-36.5) 11/30/17 05:30 Physical Exam - Constitutional Appears: Comfortable in bed, no distress or agitation noted - Head Exam Head Exam: ATRAUMATIC, NORMAL INSPECTION, NORMOCEPHALIC - Eye Exam Eye Exam: EOMI, Normal appearance, PERRL - ENT Exam ENT Exam: Mucous Membranes Moist, Normal Oropharynx - Neck Exam Neck Exam: Full ROM, Normal Inspection - Respiratory Exam Respiratory Exam: Clear to Ausculation Bilateral, NORMAL BREATHING PATTERN, no rales, wheezes or rhonchi - Cardiovascular Exam Cardiovascular Exam: REGULAR RHYTHM, +S1, +S2 - GI/Abdominal Exam GI & Abdominal Exam: Soft, Normal Bowel Sounds - Extremities Exam Extremities Exam: Normal Capillary Refill, Normal Inspection Additional comments: Both L and R foot w/ optifoam bandages on at this time. Dressings are CDI - Back Exam Back Exam: NORMAL INSPECTION - Neurological Exam Neurological Exam: Alert, Awake Additional comments: Oriented x2 - Psychiatric Exam Psychiatric exam: No change in affect from day prior; still with flat affect; short one word answers, Minimally conversant - Skin Skin Exam: Dry, Intact, Warm Assessment and Plan - Assessment and Plan (Free Text) Assessment: 57 year old male unknown PMHx admitted on 11/29/17 for AMS, right hip cellulitis , multifocal pneumonia, influenza A, strep viridians bacteremia with findings of stroke on MRI - acute vs. 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 Patient was treated for bacteremia with IV abx. Guardianship establishment pending court date; pending for 06/30/2018 The patient remains to be at his medical and mental baseline at this time. A list of his medical problems and active management can be found below: Plan: Anemia: H/H slowly downtrending over hospitalization; patient has had + heme occult test as well as known colonic polyp Most likely Fe+ deficiency in nature Patient with a microcytic anemia Iron level low TIBC wnl Retic count pending Started ferrous sulfate PO BID 05/26 Continue monitoring for constipation given new onset iron supplement Altered mental status At baseline this AM Cont. delirium precautions PT -patient refusing to participate Cont ASA 81 QD / LIPITOR 20 QD Dorsal Right Foot Ulcer Bandaged. Non purulent. Podiatry recommendations appreciated Wound care following [facility] No antibiotics warranted at this time per ID Coag negative Staphylococcus bacteremia - resolved Last bld clx negative 12/04/17 with completion of 6 week course of antibiotics Monitor WBC, ESR, CRP weekly Echocardiogram unable to rule out vegetations, family is unavailable for consent for TAHIR Colonic mass CT Abd/Pelvis showing colonic mass and hepatic lesions GI consulted: follow recs Flex sig/colonoscopy refused by patient Family unable to be contacted for consent Diabetes mellitus type 2 Cont ISS low Cont Metformin 500mg BID Cont accuchecks Carb consistent diet HTN BP Stable, continue to monitor Cont Lisinopril 10 QD Pressures are currently well controlled without Amlodipine 10 mg PO QD Can resume if pressures increase Leukocytosis - RESOLVED WBC elevated 05/17 Patient srinivasan cultured Blood cx negative x2 after 48H Urine cx w/ multiple species ML contaminated Abd U/S - 7mm common bile duct dilatation and gallstones; Hepatic lesions measuring up to 4.9cm and 3.8 cm; compared to prev abd U/S from 12/05 lesions measured 4.1cm and 3.1cm No RUQ tenderness appreciated on exam; ID following, appreciate reccs Affective disorder Cont Celexa 10mg PO Daily Constipation Colace 100mg BID Miralax 17gm BID Discontinued Lactulose Hx ETOH Abuse Cont Thiamine Cont Folic Acid Cont Multivitamin DVT Prophylaxis: SCDs Dispo: Patient continues to display a lack of decision making capacity: Guardianship status yet to be determined; court date is tentative for 06/30/2018 Pt. seen, examined, and discussed with attending physician Dr. Iraj Morin DO PGY1 Internal Medicine Financial Aids Officer - Pager [phone] <Sixto Galo - Last Filed: 06/03/18 13:11> Objective - Vital Signs/Intake and Output Vital Signs (last 24 hours): Temp Pulse Resp BP Pulse Ox 97 F L 79 20 110/72 94 L 06/03/18 08:10 06/03/18 10:15 06/03/18 08:10 06/03/18 10:15 06/03/18 08:10 Intake and Output: 06/03/18 06/03/18 06:59 18:59 Intake Total 1320 Balance 1320 - Medications Medications: Current Medications Aspirin (Aspirin Chewable) 81 mg PO DAILY [facility] Last Admin: 06/03/18 10:16 Dose: 81 mg Atorvastatin Calcium (Lipitor) 20 mg PO DIN [facility] Last Admin: 06/02/18 18:26 Dose: 20 mg Citalopram Hydrobromide (Celexa) 10 mg PO DAILY [facility] Last Admin: 06/03/18 10:15 Dose: 10 mg Collagenase (Santyl) 0 gm TOP DAILY [facility] Last Admin: 06/03/18 10:21 Dose: Not Given Ferrous Sulfate (Feosol Liq) 300 mg PO BID [facility] Last Admin: 06/03/18 10:15 Dose: 300 mg Insulin Human Lispro (Humalog Low) 0 units [facility] PRN Reason: Protocol Last Admin: 06/03/18 12:28 Dose: Not Given Lisinopril (Zestril) 10 mg PO DAILY [facility] Last Admin: 06/03/18 10:15 Dose: 10 mg Metformin HCl (Glucophage) 500 mg PO BID [facility] Last Admin: 06/03/18 10:16 Dose: 500 mg Mupirocin (Bactroban Ointment) 0 gm TOP BID [facility] Last Admin: 06/03/18 10:18 Dose: 1 applic Pantoprazole Sodium (Protonix Ec Tab) 40 mg PO 0600 [facility] Last Admin: 06/03/18 05:32 Dose: 40 mg Thiamine HCl (Vitamin B1 Tab) 100 mg PO DAILY [facility] Last Admin: 06/03/18 10:16 Dose: 100 mg - Labs Labs: 05/31/18 06:45 05/31/18 06:45 PT 12.5 SECONDS (9.4-12.5) 12/09/17 10:00 INR 1.09 (0.93-1.08) H 12/09/17 10:00 APTT 28.3 Seconds (25.1-36.5) 11/30/17 05:30 Attending/Attestation - Attestation I have personally seen and examined this patient.: Yes I have fully participated in the care of the patient.: Yes I have reviewed all pertinent clinical information, including history, physical exam and plan: Yes Notes (Text): 06/03/18 13:10 57 year old male who was admitted with altered mental status. He was found to have bacteremia, cellulitis and pneumonia for which he has completed antibiotics. He also had CVA. He is on aspirin and statin. His mental status is at his baseline. Podiatry is following for foot ulceration. He is comfortable in bed this morning watching TV, without complaints. He is pending placement/guardianship. Court date is next month. Sixto Galo MD Hospitalist.
[2018-06-03] MEDS: Insulin Lispro (humaLOG) LOW Coverage SC SCH ×4 (07:58→21:34)
[2018-06-03] MEDS: Ferrous Sulfate 300 mg/5 mL Liq UD PO SCH ×2 (10:15→18:20)
[2018-06-03] MEDS: Mupirocin 2% Ointment 15 GM TUBE TOP SCH ×2 (10:18→18:20)
[2018-06-03] MEDS: Collagenase 250 Units/gm Ointment(30 gm) TOP SCH (10:21)
--- NOTE | 2018-06-03 13:51 | CP.PCM.PN ---
<Kavitha Morin - Last Filed: 06/03/18 13:49> Subjective - Date & Time of Evaluation Date of Evaluation: 06/03/18 Time of Evaluation: 13:49 - Subjective Subjective: Podiatry Progress Note for Dr. Davis 58 y/o male seen and evaluated at bedside for right anterior ankle ulceration and left ankle abrasion. Patient is resting comfortably in bed and in NAD at time of visit. Denies any acute overnight events or new pedal complaints. No heel offloading boots noted to feet at this time. Denies of any other pedal complains at this time. Objective - Vital Signs/Intake and Output Vital Signs (last 24 hours): Temp Pulse Resp BP Pulse Ox 97 F L 79 20 110/72 94 L 06/03/18 08:10 06/03/18 10:15 06/03/18 08:10 06/03/18 10:15 06/03/18 08:10 Intake and Output: 06/03/18 06/03/18 06:59 18:59 Intake Total 1320 Balance 1320 - Medications Medications: Current Medications Aspirin (Aspirin Chewable) 81 mg PO DAILY [facility] Last Admin: 06/03/18 10:16 Dose: 81 mg Atorvastatin Calcium (Lipitor) 20 mg PO DIN [facility] Last Admin: 06/02/18 18:26 Dose: 20 mg Citalopram Hydrobromide (Celexa) 10 mg PO DAILY [facility] Last Admin: 06/03/18 10:15 Dose: 10 mg Collagenase (Santyl) 0 gm TOP DAILY [facility] Last Admin: 06/03/18 10:21 Dose: Not Given Ferrous Sulfate (Feosol Liq) 300 mg PO BID [facility] Last Admin: 06/03/18 10:15 Dose: 300 mg Insulin Human Lispro (Humalog Low) 0 units [facility] PRN Reason: Protocol Last Admin: 06/03/18 12:28 Dose: Not Given Lisinopril (Zestril) 10 mg PO DAILY [facility] Last Admin: 06/03/18 10:15 Dose: 10 mg Metformin HCl (Glucophage) 500 mg PO BID [facility] Last Admin: 06/03/18 10:16 Dose: 500 mg Mupirocin (Bactroban Ointment) 0 gm TOP BID [facility] Last Admin: 06/03/18 10:18 Dose: 1 applic Pantoprazole Sodium (Protonix Ec Tab) 40 mg PO 0600 [facility] Last Admin: 06/03/18 05:32 Dose: 40 mg Thiamine HCl (Vitamin B1 Tab) 100 mg PO DAILY [facility] Last Admin: 06/03/18 10:16 Dose: 100 mg - Labs Labs: 05/31/18 06:45 05/31/18 06:45 PT 12.5 SECONDS (9.4-12.5) 12/09/17 10:00 INR 1.09 (0.93-1.08) H 12/09/17 10:00 APTT 28.3 Seconds (25.1-36.5) 11/30/17 05:30 - Constitutional Appears: Well, Non-toxic, No Acute Distress - Extremities Exam Additional comments: B/L Lower extremity exam: VASC: DP and PT faintly palpable b/l, CFT delayed > 3 seconds x 10 digits, temperature gradient cool to cool, no edema noted to the lower extremities NEURO: Epicritic and protective sensation grossly intact b/l DERM: Ulceration noted to the anterior aspect of right ankle at the level of the ankle joint measuring approximately 2 cm x 1 cm x 0.1 cm, wound is mainly fibro-grannular. Minimal periwound erythema noted. No streaking, no drainage, no tunneling, no abscess, no odor or drainage, no fluctuance noted, no other clinical signs of infection. No probe to bone. Abrasion noted to left anterior ankle, No clinical signs of infection or break in skin appreciated ORTHO: no pain with palpation to the entire lower extremity, no calf pain or tenderness appreciated, unable to assess MMT secondary to patient's cooperation - Neurological Exam Neurological Exam: Alert, Awake, Oriented x3 - Psychiatric Exam Psychiatric exam: Normal Affect, Normal Mood Assessment and Plan - Assessment and Plan (Free Text) Assessment: 58 y/o male seen at bedside for right anterior ankle ulceration and left ankle abrasion Plan: Patient seen and evaluated at bedside Discussed with attending Dr. Davis Chart, labs and vitals reviewed Afebrile, absent leukocytosis Bilateral ankles dressed with bactroban, optifoam No plan for surgical intervention at this time Stable from podiatry standpoint Podiatry will continue to follow while patient in house <Raciel Davis - Last Filed: 06/03/18 17:06> Objective - Vital Signs/Intake and Output Vital Signs (last 24 hours): Temp Pulse Resp BP Pulse Ox 98.2 F 80 18 106/68 96 06/03/18 16:42 06/03/18 16:42 06/03/18 16:42 06/03/18 16:42 06/03/18 16:42 Intake and Output: 06/03/18 06/03/18 06:59 18:59 Intake Total 1320 Balance 1320 - Medications Medications: Current Medications Aspirin (Aspirin Chewable) 81 mg PO DAILY [facility] Last Admin: 06/03/18 10:16 Dose: 81 mg Atorvastatin Calcium (Lipitor) 20 mg PO DIN [facility] Last Admin: 06/02/18 18:26 Dose: 20 mg Citalopram Hydrobromide (Celexa) 10 mg PO DAILY [facility] Last Admin: 06/03/18 10:15 Dose: 10 mg Collagenase (Santyl) 0 gm TOP DAILY [facility] Last Admin: 06/03/18 10:21 Dose: Not Given Ferrous Sulfate (Feosol Liq) 300 mg PO BID [facility] Last Admin: 06/03/18 10:15 Dose: 300 mg Insulin Human Lispro (Humalog Low) 0 units [place] [facility] PRN Reason: Protocol Last Admin: 06/03/18 12:28 Dose: Not Given Lisinopril (Zestril) 10 mg PO DAILY [facility] Last Admin: 06/03/18 10:15 Dose: 10 mg Metformin HCl (Glucophage) 500 mg PO BID [facility] Last Admin: 06/03/18 10:16 Dose: 500 mg Mupirocin (Bactroban Ointment) 0 gm TOP BID [facility] Last Admin: 06/03/18 10:18 Dose: 1 applic Pantoprazole Sodium (Protonix Ec Tab) 40 mg PO 0600 [facility] Last Admin: 06/03/18 05:32 Dose: 40 mg Thiamine HCl (Vitamin B1 Tab) 100 mg PO DAILY [facility] Last Admin: 06/03/18 10:16 Dose: 100 mg - Labs Labs: 05/31/18 06:45 05/31/18 06:45 PT 12.5 SECONDS (9.4-12.5) 12/09/17 10:00 INR 1.09 (0.93-1.08) H 12/09/17 10:00 APTT 28.3 Seconds (25.1-36.5) 11/30/17 05:30 Attending/Attestation - Attestation I have personally seen and examined this patient.: Yes I have fully participated in the care of the patient.: Yes I have reviewed all pertinent clinical information, including history, physical exam and plan: Yes
--- NOTE | 2018-06-03 15:43 | CP.PCM.PN ---
Subjective - Date & Time of Evaluation Date of Evaluation: 06/03/18 Time of Evaluation: 11:25 - Subjective Subjective: No fevers, not in distress. Objective - Vital Signs/Intake and Output Vital Signs (last 24 hours): Temp Pulse Resp BP Pulse Ox 97 F L 79 20 110/72 94 L 06/03/18 08:10 06/03/18 10:15 06/03/18 08:10 06/03/18 10:15 06/03/18 08:10 Intake and Output: 06/03/18 06/03/18 06:59 18:59 Intake Total 1320 Balance 1320 - Medications Medications: Current Medications Aspirin (Aspirin Chewable) 81 mg PO DAILY [facility] Last Admin: 06/03/18 10:16 Dose: 81 mg Atorvastatin Calcium (Lipitor) 20 mg PO DIN [facility] Last Admin: 06/02/18 18:26 Dose: 20 mg Citalopram Hydrobromide (Celexa) 10 mg PO DAILY [facility] Last Admin: 06/03/18 10:15 Dose: 10 mg Collagenase (Santyl) 0 gm TOP DAILY [facility] Last Admin: 06/03/18 10:21 Dose: Not Given Ferrous Sulfate (Feosol Liq) 300 mg PO BID [facility] Last Admin: 06/03/18 10:15 Dose: 300 mg Insulin Human Lispro (Humalog Low) 0 units [facility] PRN Reason: Protocol Last Admin: 06/03/18 12:28 Dose: Not Given Lisinopril (Zestril) 10 mg PO DAILY [facility] Last Admin: 06/03/18 10:15 Dose: 10 mg Metformin HCl (Glucophage) 500 mg PO BID [facility] Last Admin: 06/03/18 10:16 Dose: 500 mg Mupirocin (Bactroban Ointment) 0 gm TOP BID [facility] Last Admin: 06/03/18 10:18 Dose: 1 applic Pantoprazole Sodium (Protonix Ec Tab) 40 mg PO 0600 [facility] Last Admin: 06/03/18 05:32 Dose: 40 mg Thiamine HCl (Vitamin B1 Tab) 100 mg PO DAILY [facility] Last Admin: 06/03/18 10:16 Dose: 100 mg - Labs Labs: 05/31/18 06:45 05/31/18 06:45 PT 12.5 SECONDS (9.4-12.5) 12/09/17 10:00 INR 1.09 (0.93-1.08) H 12/09/17 10:00 APTT 28.3 Seconds (25.1-36.5) 11/30/17 05:30 - Constitutional Appears: Chronically Ill - Head Exam Head Exam: NORMAL INSPECTION - Respiratory Exam Respiratory Exam: Decreased Breath Sounds - Cardiovascular Exam Cardiovascular Exam: +S1, +S2 - GI/Abdominal Exam GI & Abdominal Exam: Soft. absent: Tenderness Assessment and Plan - Assessment and Plan (Free Text) Plan: Assessment S/P systemic inflammatory response syndrome, with no evidence of sepsis or infection, resolved S/P sepsis due to strep viridans and CoNS bacteremia from right gluteal and back cellulitis liver masses noted on ultrasound S/P multifocal HCAP on top of Influenza A infection S/P Sammie infection of sacral area as well peripheral vascular disease Plan continue to monitor clinically off antibiotics since he is at risk for hospital- acquired infections - repeat blood cx are negative, PCT is normal urine culture shows contamination - follow up further plans for the liver masses noted on ultrasound abdomen
[2018-06-04] MEDS: Pantoprazole 40 mg EC Tab PO SCH (05:37)
--- NOTE | 2018-06-04 08:20 | CP.PCM.PN ---
<Kavitha Morin - Last Filed: 06/04/18 08:16> Subjective - Date & Time of Evaluation Date of Evaluation: 06/04/18 Time of Evaluation: 08:17 - Subjective Subjective: Podiatry Progress Note for Dr. Davis 58 y/o male seen and evaluated at bedside for right anterior ankle ulceration and left ankle abrasion. Patient is resting comfortably in bed and in NAD at time of visit. No heel offloading boots noted to feet at this time. Denies any acute overnight events or new pedal complaints. Denies of any other pedal complains at this time. Objective - Vital Signs/Intake and Output Vital Signs (last 24 hours): Temp Pulse Resp BP Pulse Ox 98.5 F 90 19 114/76 96 06/04/18 06:00 06/04/18 06:00 06/04/18 06:00 06/04/18 06:00 06/04/18 06:00 Intake and Output: 06/04/18 06/04/18 06:59 18:59 Intake Total 1440 Balance 1440 - Medications Medications: Current Medications Aspirin (Aspirin Chewable) 81 mg PO DAILY [facility] Last Admin: 06/03/18 10:16 Dose: 81 mg Atorvastatin Calcium (Lipitor) 20 mg PO DIN [facility] Last Admin: 06/03/18 18:20 Dose: 20 mg Citalopram Hydrobromide (Celexa) 10 mg PO DAILY [facility] Last Admin: 06/03/18 10:15 Dose: 10 mg Collagenase (Santyl) 0 gm TOP DAILY [facility] Last Admin: 06/03/18 10:21 Dose: Not Given Ferrous Sulfate (Feosol Liq) 300 mg PO BID [facility] Last Admin: 06/03/18 18:20 Dose: 300 mg Insulin Human Lispro (Humalog Low) 0 units [facility] PRN Reason: Protocol Last Admin: 06/03/18 21:34 Dose: Not Given Lisinopril (Zestril) 10 mg PO DAILY [facility] Last Admin: 06/03/18 10:15 Dose: 10 mg Metformin HCl (Glucophage) 500 mg PO BID [facility] Last Admin: 06/03/18 18:20 Dose: 500 mg Mupirocin (Bactroban Ointment) 0 gm TOP BID [facility] Last Admin: 06/03/18 18:20 Dose: 1 applic Pantoprazole Sodium (Protonix Ec Tab) 40 mg PO 0600 [facility] Last Admin: 06/04/18 05:37 Dose: 40 mg Thiamine HCl (Vitamin B1 Tab) 100 mg PO DAILY [facility] Last Admin: 06/03/18 10:16 Dose: 100 mg - Labs Labs: 05/31/18 06:45 05/31/18 06:45 PT 12.5 SECONDS (9.4-12.5) 12/09/17 10:00 INR 1.09 (0.93-1.08) H 12/09/17 10:00 APTT 28.3 Seconds (25.1-36.5) 11/30/17 05:30 - Constitutional Appears: Well, Non-toxic, No Acute Distress - Extremities Exam Additional comments: B/L Lower extremity exam: VASC: DP and PT faintly palpable b/l, CFT delayed > 3 seconds x 10 digits, temperature gradient cool to cool, no edema noted to the lower extremities NEURO: Epicritic and protective sensation grossly intact b/l DERM: Ulceration noted to the anterior aspect of right ankle at the level of the ankle joint measuring approximately 2 cm x 1 cm x 0.1 cm, wound is mainly fibro-grannular. Minimal periwound erythema noted. No streaking, no drainage, no tunneling, no abscess, no odor or drainage, no fluctuance noted, no other clinical signs of infection. No probe to bone. Abrasion noted to left anterior ankle, No clinical signs of infection or break in skin appreciated ORTHO: no pain with palpation to the entire lower extremity, no calf pain or tenderness appreciated, unable to assess MMT secondary to patient's cooperation - Neurological Exam Neurological Exam: Alert, Awake, Oriented x3 - Psychiatric Exam Psychiatric exam: Normal Affect, Normal Mood Assessment and Plan - Assessment and Plan (Free Text) Assessment: 58 y/o male seen at bedside for right anterior ankle ulceration and left ankle abrasion Plan: Patient seen and evaluated at bedside Discussed with attending Dr. Davis Chart, labs and vitals reviewed Afebrile, absent leukocytosis Bilateral ankles dressed with bactroban, optifoam No plan for surgical intervention at this time Stable from podiatry standpoint Podiatry will continue to follow while patient in house <Raciel Davis - Last Filed: 06/06/18 09:44> Objective - Vital Signs/Intake and Output Vital Signs (last 24 hours): Temp Pulse Resp BP Pulse Ox 98.2 F 87 20 128/84 97 06/06/18 08:07 06/06/18 08:07 06/06/18 08:07 06/06/18 08:07 06/06/18 08:07 Intake and Output: 06/06/18 06/06/18 06:59 18:59 Intake Total 360 Balance 360 - Medications Medications: Current Medications Aspirin (Aspirin Chewable) 81 mg PO DAILY [facility] Last Admin: 06/06/18 09:28 Dose: 81 mg Atorvastatin Calcium (Lipitor) 20 mg PO DIN [facility] Last Admin: 06/05/18 17:39 Dose: 20 mg Citalopram Hydrobromide (Celexa) 10 mg PO DAILY [facility] Last Admin: 06/06/18 09:28 Dose: 10 mg Collagenase (Santyl) 0 gm TOP DAILY [facility] Last Admin: 06/06/18 09:28 Dose: Not Given Ferrous Sulfate (Feosol Liq) 300 mg PO BID [facility] Last Admin: 06/06/18 09:28 Dose: 300 mg Insulin Human Lispro (Humalog Low) 0 units [facility] PRN Reason: Protocol Last Admin: 06/06/18 07:28 Dose: Not Given Lisinopril (Zestril) 10 mg PO DAILY [facility] Last Admin: 06/06/18 09:28 Dose: 10 mg Metformin HCl (Glucophage) 500 mg PO BID [facility] Last Admin: 06/06/18 09:28 Dose: 500 mg Mupirocin (Bactroban Ointment) 0 gm TOP BID [facility] Last Admin: 06/06/18 09:29 Dose: 1 applic Pantoprazole Sodium (Protonix Ec Tab) 40 mg PO 0600 [facility] Last Admin: 06/06/18 06:05 Dose: 40 mg Thiamine HCl (Vitamin B1 Tab) 100 mg PO DAILY [facility] Last Admin: 06/06/18 09:30 Dose: 100 mg - Labs Labs: 05/31/18 06:45 05/31/18 06:45 PT 12.5 SECONDS (9.4-12.5) 12/09/17 10:00 INR 1.09 (0.93-1.08) H 12/09/17 10:00 APTT 28.3 Seconds (25.1-36.5) 11/30/17 05:30 Attending/Attestation - Attestation I have personally seen and examined this patient.: Yes I have fully participated in the care of the patient.: Yes I have reviewed all pertinent clinical information, including history, physical exam and plan: Yes
[2018-06-04] MEDS: Insulin Lispro (humaLOG) LOW Coverage SC SCH ×4 (08:41→21:35)
[2018-06-04] MEDS: Mupirocin 2% Ointment 15 GM TUBE TOP SCH (10:13)
[2018-06-04] MEDS: Collagenase 250 Units/gm Ointment(30 gm) TOP SCH (10:14)
[2018-06-04] MEDS: Ferrous Sulfate 300 mg/5 mL Liq UD PO SCH ×3 (10:14→18:09)
--- NOTE | 2018-06-04 11:16 | CP.PCM.PN ---
<Willie Robledo - Last Filed: 06/04/18 11:13> Subjective - Date & Time of Evaluation Date of Evaluation: 06/04/18 Time of Evaluation: 11:14 - Subjective Subjective: Willie Robledo D.O PGY-1, Internal Medicine progress note for Dr. Galo Patient was examined at bedside, no acute overnight events. Patient offers no new complaints at this time. Denies fevers, chills, chest pain, shortness of breath, abdominal pain, N/V/D. Objective - Vital Signs/Intake and Output Vital Signs (last 24 hours): Temp Pulse Resp BP Pulse Ox 98.5 F 90 19 114/76 96 06/04/18 06:00 06/04/18 06:00 06/04/18 06:00 06/04/18 10:14 06/04/18 06:00 Intake and Output: 06/04/18 06/04/18 06:59 18:59 Intake Total 1440 Balance 1440 - Medications Medications: Current Medications Aspirin (Aspirin Chewable) 81 mg PO DAILY [facility] Last Admin: 06/04/18 10:13 Dose: 81 mg Atorvastatin Calcium (Lipitor) 20 mg PO DIN [facility] Last Admin: 06/03/18 18:20 Dose: 20 mg Citalopram Hydrobromide (Celexa) 10 mg PO DAILY [facility] Last Admin: 06/04/18 10:13 Dose: 10 mg Collagenase (Santyl) 0 gm TOP DAILY [facility] Last Admin: 06/04/18 10:14 Dose: Not Given Ferrous Sulfate (Feosol Liq) 300 mg PO BID [facility] Last Admin: 06/04/18 10:14 Dose: 300 mg Insulin Human Lispro (Humalog Low) 0 units SC [facility] PRN Reason: Protocol Last Admin: 06/04/18 08:41 Dose: Not Given Lisinopril (Zestril) 10 mg PO DAILY [facility] Last Admin: 06/04/18 10:14 Dose: 10 mg Metformin HCl (Glucophage) 500 mg PO BID [facility] Last Admin: 06/04/18 10:14 Dose: 500 mg Mupirocin (Bactroban Ointment) 0 gm TOP BID [facility] Last Admin: 06/04/18 10:13 Dose: Not Given Pantoprazole Sodium (Protonix Ec Tab) 40 mg PO 0600 [facility] Last Admin: 06/04/18 05:37 Dose: 40 mg Thiamine HCl (Vitamin B1 Tab) 100 mg PO DAILY [facility] Last Admin: 06/04/18 10:14 Dose: 100 mg - Labs Labs: 05/31/18 06:45 05/31/18 06:45 PT 12.5 SECONDS (9.4-12.5) 12/09/17 10:00 INR 1.09 (0.93-1.08) H 12/09/17 10:00 APTT 28.3 Seconds (25.1-36.5) 11/30/17 05:30 - Constitutional Appears: No Acute Distress - Head Exam Head Exam: ATRAUMATIC, NORMAL INSPECTION - Eye Exam Eye Exam: Normal appearance - ENT Exam ENT Exam: Mucous Membranes Moist - Respiratory Exam Respiratory Exam: Clear to Ausculation Bilateral. absent: Rales, Rhonchi, Wheezes, Respiratory Distress - Cardiovascular Exam Cardiovascular Exam: REGULAR RHYTHM, +S1, +S2. absent: Gallop, Rubs, Murmur - GI/Abdominal Exam GI & Abdominal Exam: Soft, Normal Bowel Sounds. absent: Tenderness - Extremities Exam Additional comments: Both L and R foot w/ optifoam bandages on at this time. Dressings are CDI - Neurological Exam Neurological Exam: Alert, Awake - Psychiatric Exam Psychiatric exam: Normal Affect, Normal Mood - Skin Skin Exam: Dry, Intact, Warm Assessment and Plan - Assessment and Plan (Free Text) Assessment: 57 year old male unknown PMHx admitted on 11/29/17 for AMS, right hip cellulitis , multifocal pneumonia, influenza A, strep viridians bacteremia with findings of stroke on MRI - acute vs. 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 Patient was treated for bacteremia with IV abx. Guardianship establishment pending court date; pending for 06/30/2018 The patient remains to be at his medical and mental baseline at this time. A list of his medical problems and active management can be found below: Plan: Anemia: H/H slowly downtrending over hospitalization; patient has had + heme occult test as well as known colonic polyp Most likely Fe+ deficiency in nature Patient with a microcytic anemia Iron level low TIBC wnl Retic count pending Started ferrous sulfate PO BID 05/26 Continue monitoring for constipation given new onset iron supplement Altered mental status At baseline this AM Cont. delirium precautions PT -patient refusing to participate Cont ASA 81 QD / LIPITOR 20 QD Dorsal Right Foot Ulcer Bandaged. Non purulent. Podiatry recommendations appreciated Wound care, podiatry following On [facility] No antibiotics warranted at this time per ID Coag negative Staphylococcus bacteremia - resolved Last bld clx negative 12/04/17 with completion of 6 week course of antibiotics Monitor WBC, ESR, CRP weekly Echocardiogram unable to rule out vegetations, family is unavailable for consent for TAHIR Colonic mass CT Abd/Pelvis showing colonic mass and hepatic lesions GI consulted: follow recs Flex sig/colonoscopy refused by patient Family unable to be contacted for consent Diabetes mellitus type 2 Cont ISS low Cont Metformin 500mg BID Cont accuchecks Carb consistent diet HTN BP Stable, continue to monitor Cont Lisinopril 10 QD Pressures are currently well controlled without Amlodipine 10 mg PO QD Can resume if pressures increase Leukocytosis - RESOLVED WBC elevated 05/17 Patient srinivasan cultured Blood cx negative x2 after 48H Urine cx w/ multiple species ML contaminated Abd U/S - 7mm common bile duct dilatation and gallstones; Hepatic lesions measuring up to 4.9cm and 3.8 cm; compared to prev abd U/S from 12/05 lesions measured 4.1cm and 3.1cm No RUQ tenderness appreciated on exam; ID following, appreciate reccs Affective disorder Cont Celexa 10mg PO Daily Constipation Colace 100mg BID Miralax 17gm BID Discontinued Lactulose Hx ETOH Abuse Cont Thiamine Cont Folic Acid Cont Multivitamin DVT Prophylaxis: SCDs Dispo: Patient continues to display a lack of decision making capacity: Guardianship status yet to be determined; court date is tentative for 06/30/2018 Pt. seen, examined, and discussed with attending physician Dr. Galo <Sixto Galo - Last Filed: 06/04/18 11:28> Objective - Vital Signs/Intake and Output Vital Signs (last 24 hours): Temp Pulse Resp BP Pulse Ox 98.5 F 90 19 114/76 96 06/04/18 06:00 06/04/18 06:00 06/04/18 06:00 06/04/18 10:14 06/04/18 06:00 Intake and Output: 06/04/18 06/04/18 06:59 18:59 Intake Total 1440 Balance 1440 - Medications Medications: Current Medications Aspirin (Aspirin Chewable) 81 mg PO DAILY [facility] Last Admin: 06/04/18 10:13 Dose: 81 mg Atorvastatin Calcium (Lipitor) 20 mg PO DIN [facility] Last Admin: 06/03/18 18:20 Dose: 20 mg Citalopram Hydrobromide (Celexa) 10 mg PO DAILY [facility] Last Admin: 06/04/18 10:13 Dose: 10 mg Collagenase (Santyl) 0 gm TOP DAILY [facility] Last Admin: 06/04/18 10:14 Dose: Not Given Ferrous Sulfate (Feosol Liq) 300 mg PO BID [facility] Last Admin: 06/04/18 10:14 Dose: 300 mg Insulin Human Lispro (Humalog Low) 0 units SC [facility] PRN Reason: Protocol Last Admin: 06/04/18 08:41 Dose: Not Given Lisinopril (Zestril) 10 mg PO DAILY [facility] Last Admin: 06/04/18 10:14 Dose: 10 mg Metformin HCl (Glucophage) 500 mg PO BID [facility] Last Admin: 06/04/18 10:14 Dose: 500 mg Mupirocin (Bactroban Ointment) 0 gm TOP BID [facility] Last Admin: 06/04/18 10:13 Dose: Not Given Pantoprazole Sodium (Protonix Ec Tab) 40 mg PO 0600 [facility] Last Admin: 06/04/18 05:37 Dose: 40 mg Thiamine HCl (Vitamin B1 Tab) 100 mg PO DAILY [facility] Last Admin: 06/04/18 10:14 Dose: 100 mg - Labs Labs: 05/31/18 06:45 05/31/18 06:45 PT 12.5 SECONDS (9.4-12.5) 12/09/17 10:00 INR 1.09 (0.93-1.08) H 12/09/17 10:00 APTT 28.3 Seconds (25.1-36.5) 11/30/17 05:30 Attending/Attestation - Attestation I have personally seen and examined this patient.: Yes I have fully participated in the care of the patient.: Yes I have reviewed all pertinent clinical information, including history, physical exam and plan: Yes Notes (Text): 06/04/18 11:27 57 year old male who was admitted with altered mental status. He was found to have bacteremia, cellulitis and pneumonia for which he has completed antibiotics. He also had CVA. He is on aspirin and statin. His mental status is at his baseline. No new complaints this morning. He is comfortable. Podiatry is following for foot ulceration. He is pending placement/guardianship. Court date is next month. Sixto Galo MD Hospitalist.
[2018-06-05] MEDS: Pantoprazole 40 mg EC Tab PO SCH (05:41)
[2018-06-05] MEDS: Insulin Lispro (humaLOG) LOW Coverage SC SCH ×4 (08:22→21:35)
[2018-06-05] MEDS: Mupirocin 2% Ointment 15 GM TUBE TOP SCH ×2 (09:44→17:38)
[2018-06-05] MEDS: Collagenase 250 Units/gm Ointment(30 gm) TOP SCH (09:45)
[2018-06-05] MEDS: Ferrous Sulfate 300 mg/5 mL Liq UD PO SCH ×2 (09:45→17:39)
--- NOTE | 2018-06-05 10:41 | CP.PCM.PN ---
<Kavitha Morin - Last Filed: 06/05/18 10:40> Subjective - Date & Time of Evaluation Date of Evaluation: 06/05/18 Time of Evaluation: 10:40 - Subjective Subjective: Podiatry Progress Note for Dr. Davis 58 y/o male seen and evaluated at bedside for right anterior ankle ulceration and left ankle abrasion. Patient is resting comfortably in bed and in NAD at time of visit. No heel offloading boots noted to feet at this time. Right foot dressing not intact at the time of the visit. Denies any acute overnight events or new pedal complaints. Objective - Vital Signs/Intake and Output Vital Signs (last 24 hours): Temp Pulse Resp BP Pulse Ox 98.0 F 81 20 120/73 97 06/05/18 06:00 06/05/18 06:00 06/05/18 06:00 06/05/18 06:00 06/05/18 06:00 Intake and Output: 06/05/18 06/05/18 06:59 18:59 Intake Total 240 Balance 240 - Medications Medications: Current Medications Aspirin (Aspirin Chewable) 81 mg PO DAILY [facility] Last Admin: 06/05/18 09:43 Dose: 81 mg Atorvastatin Calcium (Lipitor) 20 mg PO DIN [facility] Last Admin: 06/04/18 18:06 Dose: 20 mg Citalopram Hydrobromide (Celexa) 10 mg PO DAILY [facility] Last Admin: 06/05/18 09:45 Dose: 10 mg Collagenase (Santyl) 0 gm TOP DAILY [facility] Last Admin: 06/05/18 09:45 Dose: Not Given Ferrous Sulfate (Feosol Liq) 300 mg PO BID [facility] Last Admin: 06/05/18 09:45 Dose: 300 mg Insulin Human Lispro (Humalog Low) 0 units SC [facility] PRN Reason: Protocol Last Admin: 06/05/18 08:22 Dose: Not Given Lisinopril (Zestril) 10 mg PO DAILY [facility] Last Admin: 06/05/18 09:46 Dose: 10 mg Metformin HCl (Glucophage) 500 mg PO BID [facility] Last Admin: 06/05/18 09:45 Dose: 500 mg Mupirocin (Bactroban Ointment) 0 gm TOP BID [facility] Last Admin: 06/05/18 09:44 Dose: 1 applic Pantoprazole Sodium (Protonix Ec Tab) 40 mg PO 0600 [facility] Last Admin: 06/05/18 05:41 Dose: 40 mg Thiamine HCl (Vitamin B1 Tab) 100 mg PO DAILY [facility] Last Admin: 06/05/18 09:45 Dose: 100 mg - Labs Labs: 05/31/18 06:45 05/31/18 06:45 PT 12.5 SECONDS (9.4-12.5) 12/09/17 10:00 INR 1.09 (0.93-1.08) H 12/09/17 10:00 APTT 28.3 Seconds (25.1-36.5) 11/30/17 05:30 - Constitutional Appears: Well, Non-toxic, No Acute Distress - Extremities Exam Additional comments: B/L Lower extremity exam: VASC: DP and PT faintly palpable b/l, CFT delayed > 3 seconds x 10 digits, temperature gradient cool to cool, no edema noted to the lower extremities NEURO: Epicritic and protective sensation grossly intact b/l DERM: Ulceration noted to the anterior aspect of right ankle at the level of the ankle joint measuring approximately 2 cm x 1 cm x 0.1 cm, wound is mainly fibro-grannular. Minimal periwound erythema noted. No streaking, no drainage, no tunneling, no abscess, no odor or drainage, no fluctuance noted, no other clinical signs of infection. No probe to bone. Abrasion noted to left anterior ankle, No clinical signs of infection or break in skin appreciated ORTHO: no pain with palpation to the entire lower extremity, no calf pain or tenderness appreciated, unable to assess MMT secondary to patient's cooperation - Neurological Exam Neurological Exam: Alert, Awake, Oriented x3 - Psychiatric Exam Psychiatric exam: Normal Affect, Normal Mood Assessment and Plan - Assessment and Plan (Free Text) Assessment: 58 y/o male seen at bedside for right anterior ankle ulceration and left ankle abrasion Plan: Patient seen and evaluated at bedside Discussed with attending Dr. Davis Chart, labs and vitals reviewed Afebrile, absent leukocytosis Bilateral ankles dressed with bactroban, optifoam No plan for surgical intervention at this time Stable from podiatry standpoint Podiatry will continue to follow while patient in house <Raciel Davis - Last Filed: 06/06/18 09:45> Objective - Vital Signs/Intake and Output Vital Signs (last 24 hours): Temp Pulse Resp BP Pulse Ox 98.2 F 87 20 128/84 97 06/06/18 08:07 06/06/18 08:07 06/06/18 08:07 06/06/18 08:07 06/06/18 08:07 Intake and Output: 06/06/18 06/06/18 06:59 18:59 Intake Total 360 Balance 360 - Medications Medications: Current Medications Aspirin (Aspirin Chewable) 81 mg PO DAILY [facility] Last Admin: 06/06/18 09:28 Dose: 81 mg Atorvastatin Calcium (Lipitor) 20 mg PO DIN [facility] Last Admin: 06/05/18 17:39 Dose: 20 mg Citalopram Hydrobromide (Celexa) 10 mg PO DAILY [facility] Last Admin: 06/06/18 09:28 Dose: 10 mg Collagenase (Santyl) 0 gm TOP DAILY [facility] Last Admin: 06/06/18 09:28 Dose: Not Given Ferrous Sulfate (Feosol Liq) 300 mg PO BID [facility] Last Admin: 06/06/18 09:28 Dose: 300 mg Insulin Human Lispro (Humalog Low) 0 units SC [facility] PRN Reason: Protocol Last Admin: 06/06/18 07:28 Dose: Not Given Lisinopril (Zestril) 10 mg PO DAILY [facility] Last Admin: 06/06/18 09:28 Dose: 10 mg Metformin HCl (Glucophage) 500 mg PO BID [facility] Last Admin: 06/06/18 09:28 Dose: 500 mg Mupirocin (Bactroban Ointment) 0 gm TOP BID [facility] Last Admin: 06/06/18 09:29 Dose: 1 applic Pantoprazole Sodium (Protonix Ec Tab) 40 mg PO 0600 [facility] Last Admin: 06/06/18 06:05 Dose: 40 mg Thiamine HCl (Vitamin B1 Tab) 100 mg PO DAILY [facility] Last Admin: 06/06/18 09:30 Dose: 100 mg - Labs Labs: 05/31/18 06:45 05/31/18 06:45 PT 12.5 SECONDS (9.4-12.5) 12/09/17 10:00 INR 1.09 (0.93-1.08) H 12/09/17 10:00 APTT 28.3 Seconds (25.1-36.5) 02/13/18 05:30 Attending/Attestation - Attestation I have personally seen and examined this patient.: Yes I have fully participated in the care of the patient.: Yes I have reviewed all pertinent clinical information, including history, physical exam and plan: Yes
--- NOTE | 2018-06-05 10:52 | CP.PCM.PN ---
<Willie Robledo - Last Filed: 06/05/18 10:43> Subjective - Date & Time of Evaluation Date of Evaluation: 06/05/18 Time of Evaluation: 10:43 - Subjective Subjective: Willie Robledo D.O PGY-1, Internal Medicine progress note for Dr. Galo Patient was examined at bedside, no acute overnight events. Patient offers no new complaints at this time. Denies fevers, chills, chest pain, shortness of breath, abdominal pain, N/V/D. Objective - Vital Signs/Intake and Output Vital Signs (last 24 hours): Temp Pulse Resp BP Pulse Ox 98.0 F 81 20 120/73 97 06/05/18 06:00 06/05/18 06:00 06/05/18 06:00 06/05/18 06:00 06/05/18 06:00 Intake and Output: 06/05/18 06/05/18 06:59 18:59 Intake Total 240 Balance 240 - Medications Medications: Current Medications Aspirin (Aspirin Chewable) 81 mg PO DAILY [facility] Last Admin: 06/05/18 09:43 Dose: 81 mg Atorvastatin Calcium (Lipitor) 20 mg PO DIN [facility] Last Admin: 06/04/18 18:06 Dose: 20 mg Citalopram Hydrobromide (Celexa) 10 mg PO DAILY [facility] Last Admin: 06/05/18 09:45 Dose: 10 mg Collagenase (Santyl) 0 gm TOP DAILY [facility] Last Admin: 06/05/18 09:45 Dose: Not Given Ferrous Sulfate (Feosol Liq) 300 mg PO BID [facility] Last Admin: 06/05/18 09:45 Dose: 300 mg Insulin Human Lispro (Humalog Low) 0 units SC [facility] PRN Reason: Protocol Last Admin: 06/05/18 08:22 Dose: Not Given Lisinopril (Zestril) 10 mg PO DAILY [facility] Last Admin: 06/05/18 09:46 Dose: 10 mg Metformin HCl (Glucophage) 500 mg PO BID [facility] Last Admin: 06/05/18 09:45 Dose: 500 mg Mupirocin (Bactroban Ointment) 0 gm TOP BID [facility] Last Admin: 06/05/18 09:44 Dose: 1 applic Pantoprazole Sodium (Protonix Ec Tab) 40 mg PO 0600 [facility] Last Admin: 06/05/18 05:41 Dose: 40 mg Thiamine HCl (Vitamin B1 Tab) 100 mg PO DAILY [facility] Last Admin: 06/05/18 09:45 Dose: 100 mg - Labs Labs: 05/31/18 06:45 05/31/18 06:45 PT 12.5 SECONDS (9.4-12.5) 12/09/17 10:00 INR 1.09 (0.93-1.08) H 12/09/17 10:00 APTT 28.3 Seconds (25.1-36.5) 11/30/17 05:30 - Constitutional Appears: No Acute Distress - Head Exam Head Exam: ATRAUMATIC, NORMAL INSPECTION - Eye Exam Eye Exam: Normal appearance - ENT Exam ENT Exam: Mucous Membranes Moist - Respiratory Exam Respiratory Exam: Clear to Ausculation Bilateral. absent: Rales, Rhonchi, Wheezes - Cardiovascular Exam Cardiovascular Exam: REGULAR RHYTHM, +S1, +S2. absent: Gallop, Rubs, Murmur - GI/Abdominal Exam GI & Abdominal Exam: Soft, Normal Bowel Sounds. absent: Tenderness - Extremities Exam Additional comments: Both L and R foot w/ optifoam bandages on at this time. Dressings are CDI - Neurological Exam Neurological Exam: Alert, Awake - Psychiatric Exam Psychiatric exam: Normal Affect, Normal Mood - Skin Skin Exam: Dry, Intact, Normal Color, Warm Assessment and Plan - Assessment and Plan (Free Text) Assessment: 57 year old male unknown PMHx admitted on 11/29/17 for AMS, right hip cellulitis , multifocal pneumonia, influenza A, strep viridians bacteremia with findings of stroke on MRI - acute vs. 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 Patient was treated for bacteremia with IV abx. Guardianship establishment pending court date; pending for 06/30/2018 Plan: Anemia: H/H slowly downtrending over hospitalization; patient has had + heme occult test as well as known colonic polyp Most likely Fe+ deficiency in nature Patient with a microcytic anemia Iron level low, TIBC wnl Started ferrous sulfate PO BID 05/26 Continue monitoring for constipation given new onset iron supplement Altered mental status At baseline this AM Cont. delirium precautions PT -patient refusing to participate Cont ASA 81 QD / LIPITOR 20 QD Dorsal Right Foot Ulcer Wound care, podiatry following Both L and R foot with optifoam bandages No antibiotics warranted at this time per ID Colonic mass CT Abd/Pelvis showing colonic mass and hepatic lesions GI consulted: follow recs Flex sig/colonoscopy refused by patient Family unable to be contacted for consent Diabetes mellitus type 2 Cont ISS low Cont Metformin 500mg BID Cont accuchecks Carb consistent diet HTN BP Stable, continue to monitor Cont Lisinopril 10 QD Pressures are currently well controlled without Amlodipine 10 mg PO QD Can resume if pressures increase Coag negative Staphylococcus bacteremia- resolved Last bld clx negative 12/04/17 with completion of 6 week course of antibiotics Monitor WBC, ESR, CRP weekly Echocardiogram unable to rule out vegetations, family is unavailable for consent for TAHIR Leukocytosis - resolved WBC elevated 05/17 Abd U/S - 7mm common bile duct dilatation and gallstones; Hepatic lesions measuring up to 4.9cm and 3.8 cm; compared to prev abd U/S from 12/05 lesions measured 4.1cm and 3.1cm Affective disorder Cont Celexa 10mg PO Daily Constipation Colace 100mg BID Miralax 17gm BID Hx ETOH Abuse Cont Thiamine DVT Prophylaxis: SCDs Dispo: Patient continues to display a lack of decision making capacity: Guardianship status yet to be determined; court date is tentative for 06/30/2018 Pt. seen, examined, and discussed with attending physician Dr. Galo <Sixto Galo - Last Filed: 06/05/18 11:02> Objective - Vital Signs/Intake and Output Vital Signs (last 24 hours): Temp Pulse Resp BP Pulse Ox 98.0 F 81 20 120/73 97 06/05/18 06:00 06/05/18 06:00 06/05/18 06:00 06/05/18 06:00 06/05/18 06:00 Intake and Output: 06/05/18 06/05/18 06:59 18:59 Intake Total 240 Balance 240 - Medications Medications: Current Medications Aspirin (Aspirin Chewable) 81 mg PO DAILY [facility] Last Admin: 06/05/18 09:43 Dose: 81 mg Atorvastatin Calcium (Lipitor) 20 mg PO DIN [facility] Last Admin: 06/04/18 18:06 Dose: 20 mg Citalopram Hydrobromide (Celexa) 10 mg PO DAILY [facility] Last Admin: 06/05/18 09:45 Dose: 10 mg Collagenase (Santyl) 0 gm TOP DAILY [facility] Last Admin: 06/05/18 09:45 Dose: Not Given Ferrous Sulfate (Feosol Liq) 300 mg PO BID [facility] Last Admin: 06/05/18 09:45 Dose: 300 mg Insulin Human Lispro (Humalog Low) 0 units SC [facility] PRN Reason: Protocol Last Admin: 06/05/18 08:22 Dose: Not Given Lisinopril (Zestril) 10 mg PO DAILY [facility] Last Admin: 06/05/18 09:46 Dose: 10 mg Metformin HCl (Glucophage) 500 mg PO BID [facility] Last Admin: 06/05/18 09:45 Dose: 500 mg Mupirocin (Bactroban Ointment) 0 gm TOP BID [facility] Last Admin: 06/05/18 09:44 Dose: 1 applic Pantoprazole Sodium (Protonix Ec Tab) 40 mg PO 0600 [facility] Last Admin: 06/05/18 05:41 Dose: 40 mg Thiamine HCl (Vitamin B1 Tab) 100 mg PO DAILY [facility] Last Admin: 06/05/18 09:45 Dose: 100 mg - Labs Labs: 05/31/18 06:45 05/31/18 06:45 PT 12.5 SECONDS (9.4-12.5) 12/09/17 10:00 INR 1.09 (0.93-1.08) H 12/09/17 10:00 APTT 28.3 Seconds (25.1-36.5) 11/30/17 05:30 Attending/Attestation - Attestation I have personally seen and examined this patient.: Yes I have fully participated in the care of the patient.: Yes I have reviewed all pertinent clinical information, including history, physical exam and plan: Yes Notes (Text): 06/05/18 11:00 57 year old male who was admitted with altered mental status. He was found to have bacteremia, cellulitis and pneumonia for which he has completed antibiotics. He also had CVA. He is on aspirin and statin. Encouraged out of bed to chair which he is refusing. His mental status is at his baseline. He is comfortable without complaints. Podiatry is following for foot ulceration. He is pending placement/guardianship. Court date is next month. Sixto Galo MD Hospitalist.
--- NOTE | 2018-06-05 12:10 | PN ---
Copied To: Daniel Torres MD Attending MD: Daniel Torres MD DATE: 06/05/2018 SUBJECTIVE: The patient is seen earlier today, in no acute distress, nontoxic. PHYSICAL EXAMINATION: VITAL SIGNS: With a temperature of 98, blood pressure is 120/70, respiratory rate of 18, heart rate of 81. HEENT: Examination of HEENT is unremarkable. NECK: Supple. LUNGS: Have decreased breath sounds. HEART: Normal S1, S2. ABDOMEN: Soft, nontender. LABORATORY DATA: Laboratory examination is reviewed. Review of orders reveals the patient to be off of antibiotics. ASSESSMENT AND PLAN: A 58-year-old male, who was seen earlier today in 363, bed 1, status post systemic inflammatory response syndrome. No evidence of infection or sepsis which has now resolved. The patient who was initially admitted with Streptococcus viridans and coagulase-negative Staphylococcus bacteremia secondary to right gluteal and back cellulitis. The patient was found to have liver masses on an ultrasound, possible colon cancer with metastases and had multifocal healthcare-associated pneumonia on top of influenza A infection, peripheral vascular disease. Currently, off of antibiotics, afebrile. No evidence of infection; however, the risk for developing nosocomial infections. Daniel Torres MD
[2018-06-06] MEDS: Pantoprazole 40 mg EC Tab PO SCH (06:05)
[2018-06-06] MEDS: Insulin Lispro (humaLOG) LOW Coverage SC SCH ×4 (07:28→22:11)
--- NOTE | 2018-06-06 08:27 | PN ---
Copied To: Daniel Torres MD Attending MD: Daniel Torres MD DATE: 06/04/2018 SUBJECTIVE: The patient is in bed, in no acute distress, nontoxic. OBJECTIVE: VITAL SIGNS: On exam, temperature is 98, blood pressure is 114/70, respiratory rate of 18. HEENT: Examination is unremarkable. NECK: Supple. LUNGS: Have decreased breath sounds. HEART: Normal S1, S2. ABDOMEN: Soft, nontender. DATA: Laboratory examination is reviewed. ASSESSMENT AND PLAN: This is a 58-year-old status post SIRS, systemic inflammatory response syndrome, no evidence of infection, was admitted with sepsis with strep viridans and coag-negative staph bacteremia from gluteal and back cellulitis with patient with liver masses on ultrasound, possible colon carcinoma with metastases to the liver, currently now off of antibiotics, afebrile. The patient is at risk for developing nosocomial infections. Daniel Torres MD
--- NOTE | 2018-06-06 08:57 | CP.PCM.PN ---
<Mariano Morin - Last Filed: 06/06/18 15:01> Subjective - Date & Time of Evaluation Date of Evaluation: 06/06/18 Time of Evaluation: 08:56 - Subjective Subjective: Mariano Morin DO PGY1 - Internal Medicine [employer] - Hospital Progress Note No acute events reported overnight, Patient in No acute distress, voicing no acute complaints. 12 system ROS negative Patient is at baseline. Objective - Vital Signs/Intake and Output Vital Signs (last 24 hours): Temp Pulse Resp BP Pulse Ox 98.2 F 87 20 128/84 97 06/06/18 08:07 06/06/18 08:07 06/06/18 08:07 06/06/18 08:07 06/06/18 08:07 Intake and Output: 06/06/18 06/06/18 06:59 18:59 Intake Total 360 Balance 360 - Medications Medications: Current Medications Aspirin (Aspirin Chewable) 81 mg PO DAILY [facility] Last Admin: 06/05/18 09:43 Dose: 81 mg Atorvastatin Calcium (Lipitor) 20 mg PO DIN [facility] Last Admin: 06/05/18 17:39 Dose: 20 mg Citalopram Hydrobromide (Celexa) 10 mg PO DAILY [facility] Last Admin: 06/05/18 09:45 Dose: 10 mg Collagenase (Santyl) 0 gm TOP DAILY [facility] Last Admin: 06/05/18 09:45 Dose: Not Given Ferrous Sulfate (Feosol Liq) 300 mg PO BID [facility] Last Admin: 06/05/18 17:39 Dose: 300 mg Insulin Human Lispro (Humalog Low) 0 units SC [facility] PRN Reason: Protocol Last Admin: 06/06/18 07:28 Dose: Not Given Lisinopril (Zestril) 10 mg PO DAILY [facility] Last Admin: 06/05/18 09:46 Dose: 10 mg Metformin HCl (Glucophage) 500 mg PO BID [facility] Last Admin: 06/05/18 17:39 Dose: 500 mg Mupirocin (Bactroban Ointment) 0 gm TOP BID [facility] Last Admin: 06/05/18 17:38 Dose: 1 applic Pantoprazole Sodium (Protonix Ec Tab) 40 mg PO 0600 [facility] Last Admin: 06/06/18 06:05 Dose: 40 mg Thiamine HCl (Vitamin B1 Tab) 100 mg PO DAILY [facility] Last Admin: 06/05/18 09:45 Dose: 100 mg - Labs Labs: 05/31/18 06:45 05/31/18 06:45 PT 12.5 SECONDS (9.4-12.5) 12/09/17 10:00 INR 1.09 (0.93-1.08) H 12/09/17 10:00 APTT 28.3 Seconds (25.1-36.5) 11/30/17 05:30 Physical Exam - Constitutional Appears: Comfortable in bed, no distress or agitation noted - Head Exam Head Exam: ATRAUMATIC, NORMAL INSPECTION, NORMOCEPHALIC - Eye Exam Eye Exam: EOMI, Normal appearance, PERRL - ENT Exam ENT Exam: Mucous Membranes Moist, Normal Oropharynx - Neck Exam Neck Exam: Full ROM, Normal Inspection - Respiratory Exam Respiratory Exam: Clear to Ausculation Bilateral, NORMAL BREATHING PATTERN, no rales, wheezes or rhonchi - Cardiovascular Exam Cardiovascular Exam: REGULAR RHYTHM, +S1, +S2 - GI/Abdominal Exam GI & Abdominal Exam: Soft, Normal Bowel Sounds - Extremities Exam Extremities Exam: Normal Capillary Refill, Normal Inspection Additional comments: Both L and R foot w/ optifoam bandages on at this time. Dressings are CDI - Back Exam Back Exam: NORMAL INSPECTION - Neurological Exam Neurological Exam: Alert, Awake Additional comments: Oriented x1 - Psychiatric Exam Psychiatric exam: No change in affect from day prior; still with flat affect; short one word answers, Minimally conversant - Skin Skin Exam: Dry, Intact, Warm Assessment and Plan - Assessment and Plan (Free Text) Assessment: 57 year old male unknown PMHx admitted on 11/29/17 for AMS, right hip cellulitis , multifocal pneumonia, influenza A, strep viridians bacteremia with findings of stroke on MRI - acute vs. 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 Patient was treated for bacteremia with IV abx. Guardianship establishment pending court date; pending for 06/30/2018 The patient remains to be at his medical and mental baseline at this time. A list of his medical problems and active management can be found below: Plan: Anemia: H/H slowly downtrending over hospitalization; patient has had + heme occult test as well as known colonic polyp Most likely Fe+ deficiency in nature Patient with a microcytic anemia Iron level low TIBC wnl Retic count pending Started ferrous sulfate PO BID 05/26 Continue monitoring for constipation given new onset iron supplement Altered mental status At baseline this AM Cont. delirium precautions PT -patient refusing to participate Cont ASA 81 QD / LIPITOR 20 QD Dorsal Right Foot Ulcer Bandaged. Non purulent. Podiatry recommendations appreciated Wound care following On [facility] No antibiotics warranted at this time per ID Coag negative Staphylococcus bacteremia - resolved Last bld clx negative 12/04/17 with completion of 6 week course of antibiotics Monitor WBC, ESR, CRP weekly Echocardiogram unable to rule out vegetations, family is unavailable for consent for TAHIR Colonic mass CT Abd/Pelvis showing colonic mass and hepatic lesions GI consulted: follow recs Flex sig/colonoscopy refused by patient Family unable to be contacted for consent Diabetes mellitus type 2 Cont ISS low Cont Metformin 500mg BID Cont accuchecks Carb consistent diet HTN BP Stable, continue to monitor Cont Lisinopril 10 QD Pressures are currently well controlled without Amlodipine 10 mg PO QD Can resume if pressures increase Leukocytosis - RESOLVED WBC elevated 05/17 Patient srinivasan cultured Blood cx negative x2 after 48H Urine cx w/ multiple species ML contaminated Abd U/S - 7mm common bile duct dilatation and gallstones; Hepatic lesions measuring up to 4.9cm and 3.8 cm; compared to prev abd U/S from 12/05 lesions measured 4.1cm and 3.1cm No RUQ tenderness appreciated on exam; ID following, appreciate reccs Affective disorder Cont Celexa 10mg PO Daily Constipation Colace 100mg BID Miralax 17gm BID Discontinued Lactulose Hx ETOH Abuse Cont Thiamine Cont Folic Acid Cont Multivitamin DVT Prophylaxis: SCDs Dispo: Patient continues to display a lack of decision making capacity: Guardianship status yet to be determined; court date is tentative for 06/30/2018 Pt. seen, examined, and discussed with attending physician Dr. April Morin DO PGY1 Internal Medicine [employer] - Pager [phone] <April Morin R - Last Filed: 06/07/18 18:53> Objective - Vital Signs/Intake and Output Vital Signs (last 24 hours): Temp Pulse Resp BP Pulse Ox 97.9 F 86 19 122/74 95 06/07/18 16:48 06/07/18 16:48 06/07/18 16:48 06/07/18 16:48 06/07/18 16:48 Intake and Output: 06/07/18 06/07/18 06:59 18:59 Intake Total 960 Balance 960 - Medications Medications: Current Medications Aspirin (Aspirin Chewable) 81 mg PO DAILY [facility] Last Admin: 06/07/18 09:18 Dose: 81 mg Atorvastatin Calcium (Lipitor) 20 mg PO DIN [facility] Last Admin: 06/07/18 17:13 Dose: 20 mg Citalopram Hydrobromide (Celexa) 10 mg PO DAILY [facility] Last Admin: 06/07/18 09:18 Dose: 10 mg Collagenase (Santyl) 0 gm TOP DAILY [facility] Last Admin: 06/07/18 09:19 Dose: Not Given Ferrous Sulfate (Feosol Liq) 300 mg PO BID [facility] Last Admin: 06/07/18 17:14 Dose: Not Given Insulin Human Lispro (Humalog Low) 0 units SC [facility] PRN Reason: Protocol Last Admin: 06/07/18 17:13 Dose: Not Given Lisinopril (Zestril) 10 mg PO DAILY [facility] Last Admin: 06/07/18 09:19 Dose: 10 mg Metformin HCl (Glucophage) 500 mg PO BID [facility] Last Admin: 06/07/18 17:13 Dose: 500 mg Mupirocin (Bactroban Ointment) 0 gm TOP BID [facility] Last Admin: 06/07/18 17:14 Dose: 1 applic Pantoprazole Sodium (Protonix Ec Tab) 40 mg PO 0600 [facility] Last Admin: 06/07/18 05:21 Dose: 40 mg Thiamine HCl (Vitamin B1 Tab) 100 mg PO DAILY [facility] Last Admin: 06/07/18 09:19 Dose: 100 mg - Labs Labs: 06/07/18 06:00 06/07/18 06:00 PT 12.5 SECONDS (9.4-12.5) 12/09/17 10:00 INR 1.09 (0.93-1.08) H 12/09/17 10:00 APTT 28.3 Seconds (25.1-36.5) 11/30/17 05:30 Attending/Attestation - Attestation I have personally seen and examined this patient.: Yes I have fully participated in the care of the patient.: Yes I have reviewed all pertinent clinical information, including history, physical exam and plan: Yes Notes (Text): Patient seen and examined by me at 10:15AM with resident 06/06/18. Case including HPI, physical exam, and assessment and plan discussed with resident. Agree with above with following additions/corrections. Patient is a 57-year-old male with unknown past medical history who was brought in to the emergency room with altered mental mental status and was admitted with sepsis. Patient states he is feeling okay. He denies any chest pain or shortness of breath. He denies any nausea, vomiting, or abdominal pain. Denies any chest pain or shortness of breath. Unable to obtain any other review of systems from patient as he is not answering. Patient is afebrile. Physical exam: Gen: Awake and alert sitting up in bed in no acute distress HEENT: Normocephalic, atraumatic. Extraocular muscles intact, pupils equal reactive. No scleral icterus. Cardiovascular: Normal rhythm. Normal S1, S2. No murmurs, rubs, or gallops appreciated Pulmonary: Normal respiratory effort. No rhonchi, rales or wheezing appreciated. Gastrointestinal: Soft, nondistended, nontender. Positive bowel sounds all 4 quadrants. No guarding. Musculoskeletal: Moves all extremities. No calf tenderness Central nervous system: Awake and alert. Dermatologic: Skin warm and dry Assessment and plan: Patient is a 57-year-old male with unknown past medical history who was brought in to the emergency room with altered mental mental status. 1. Altered mental status. Patient appears to be at baseline. Continue delirium precautions. Continue supportive care. CT head on 11/29/2017 per radiology showed no evidence of acute intracranial hemorrhage, mass effect, or midline shift; dilated ventricles out of proportion of mildly dilated sulci which may represent central atrophy versus hydrocephalus; extensive diffuse white matter changes suggestive but not specific for chronic microvascular ischemic disease. Continue ASA and Lipitor. 2. Anemia. Likey iron deficient. H&H stable. Continue ferrous sulfate. Continue to monitor CBC 3. Right foot ulcer. Podiatry following, recommendations appreciated. Continue local wound care. 4. DM2. Continue insulin sliding scale and metformin. Continue to monitor accuchecks 5. Essential Hypertension. Continue Lisinopril 6. Colon mass. CT chest/abd/pelvis per radiologist showed soft tissue lesion within rectosigmoid colon, malignancy not excluded; cholelithiasis. Intervention refused by patient. Family not available to consent. 7. Mood disorder. Continue Celexa. Patient unable to make own decisions. No family available. Guardianship pending 8. S/P bacteremia, Cellulitis, and pneumonia. Resolved. S/P antibiotic treatment. 9. CVA. Continue ASA and Lipitor 10. Out of bed to chair 10. Pending placement/guardianship.
[2018-06-06] MEDS: Collagenase 250 Units/gm Ointment(30 gm) TOP SCH (09:28)
[2018-06-06] MEDS: Ferrous Sulfate 300 mg/5 mL Liq UD PO SCH ×2 (09:28→17:17)
[2018-06-06] MEDS: Mupirocin 2% Ointment 15 GM TUBE TOP SCH ×2 (09:29→17:18)
--- NOTE | 2018-06-06 10:05 | CP.PCM.PN ---
<Kavitha Morin - Last Filed: 06/06/18 10:03> Subjective - Date & Time of Evaluation Date of Evaluation: 06/06/18 Time of Evaluation: 10:03 - Subjective Subjective: Podiatry Progress Note for Dr. Davis 58 y/o male seen and evaluated at bedside for right anterior ankle ulceration and left ankle abrasion. Patient is resting comfortably in bed and in NAD at time of visit. No heel offloading boots noted to feet at this time. Denies any acute overnight events or new pedal complaints. Objective - Vital Signs/Intake and Output Vital Signs (last 24 hours): Temp Pulse Resp BP Pulse Ox 98.2 F 87 20 128/84 97 06/06/18 08:07 06/06/18 08:07 06/06/18 08:07 06/06/18 08:07 06/06/18 08:07 Intake and Output: 06/06/18 06/06/18 06:59 18:59 Intake Total 360 Balance 360 - Medications Medications: Current Medications Aspirin (Aspirin Chewable) 81 mg PO DAILY [facility] Last Admin: 06/06/18 09:28 Dose: 81 mg Atorvastatin Calcium (Lipitor) 20 mg PO DIN [facility] Last Admin: 06/05/18 17:39 Dose: 20 mg Citalopram Hydrobromide (Celexa) 10 mg PO DAILY [facility] Last Admin: 06/06/18 09:28 Dose: 10 mg Collagenase (Santyl) 0 gm TOP DAILY [facility] Last Admin: 06/06/18 09:28 Dose: Not Given Ferrous Sulfate (Feosol Liq) 300 mg PO BID [facility] Last Admin: 06/06/18 09:28 Dose: 300 mg Insulin Human Lispro (Humalog Low) 0 units SC [facility] PRN Reason: Protocol Last Admin: 06/06/18 07:28 Dose: Not Given Lisinopril (Zestril) 10 mg PO DAILY [facility] Last Admin: 06/06/18 09:28 Dose: 10 mg Metformin HCl (Glucophage) 500 mg PO BID [facility] Last Admin: 06/06/18 09:28 Dose: 500 mg Mupirocin (Bactroban Ointment) 0 gm TOP BID [facility] Last Admin: 06/06/18 09:29 Dose: 1 applic Pantoprazole Sodium (Protonix Ec Tab) 40 mg PO 0600 [facility] Last Admin: 06/06/18 06:05 Dose: 40 mg Thiamine HCl (Vitamin B1 Tab) 100 mg PO DAILY [facility] Last Admin: 06/06/18 09:30 Dose: 100 mg - Labs Labs: 05/31/18 06:45 05/31/18 06:45 PT 12.5 SECONDS (9.4-12.5) 12/09/17 10:00 INR 1.09 (0.93-1.08) H 12/09/17 10:00 APTT 28.3 Seconds (25.1-36.5) 11/30/17 05:30 - Constitutional Appears: Well, Non-toxic, No Acute Distress - Extremities Exam Additional comments: B/L Lower extremity exam: VASC: DP and PT faintly palpable b/l, CFT delayed > 3 seconds x 10 digits, temperature gradient cool to cool, no edema noted to the lower extremities NEURO: Epicritic and protective sensation grossly intact b/l DERM: Ulceration noted to the anterior aspect of right ankle at the level of the ankle joint measuring approximately 2 cm x 1 cm x 0.1 cm, wound is mainly fibro-grannular. Minimal periwound erythema noted. No streaking, no drainage, no tunneling, no abscess, no odor or drainage, no fluctuance noted, no other clinical signs of infection. No probe to bone. Abrasion noted to left anterior ankle, No clinical signs of infection or break in skin appreciated ORTHO: no pain with palpation to the entire lower extremity, no calf pain or tenderness appreciated, unable to assess MMT secondary to patient's cooperation - Neurological Exam Neurological Exam: Alert, Awake, Oriented x3 - Psychiatric Exam Psychiatric exam: Normal Affect, Normal Mood Assessment and Plan - Assessment and Plan (Free Text) Assessment: 58 y/o male seen at bedside for right anterior ankle ulceration and left ankle abrasion Plan: Patient seen and evaluated at bedside Discussed with attending Dr. Davis Chart, labs and vitals reviewed Afebrile, absent leukocytosis Bilateral ankles dressed with bactroban, optifoam No plan for surgical intervention at this time Stable from podiatry standpoint Podiatry will continue to follow while patient in house <Raciel Davis - Last Filed: 06/06/18 17:19> Objective - Vital Signs/Intake and Output Vital Signs (last 24 hours): Temp Pulse Resp BP Pulse Ox 97.8 F 75 19 135/84 98 06/06/18 16:00 06/06/18 16:00 06/06/18 16:00 06/06/18 16:00 06/06/18 16:00 Intake and Output: 06/06/18 06/06/18 06:59 18:59 Intake Total 360 Balance 360 - Medications Medications: Current Medications Aspirin (Aspirin Chewable) 81 mg PO DAILY [facility] Last Admin: 06/06/18 09:28 Dose: 81 mg Atorvastatin Calcium (Lipitor) 20 mg PO DIN [facility] Last Admin: 06/05/18 17:39 Dose: 20 mg Citalopram Hydrobromide (Celexa) 10 mg PO DAILY [facility] Last Admin: 06/06/18 09:28 Dose: 10 mg Collagenase (Santyl) 0 gm TOP DAILY [facility] Last Admin: 06/06/18 09:28 Dose: Not Given Ferrous Sulfate (Feosol Liq) 300 mg PO BID [facility] Last Admin: 06/06/18 09:28 Dose: 300 mg Insulin Human Lispro (Humalog Low) 0 units SC [facility] PRN Reason: Protocol Last Admin: 06/06/18 16:57 Dose: Not Given Lisinopril (Zestril) 10 mg PO DAILY [facility] Last Admin: 06/06/18 09:28 Dose: 10 mg Metformin HCl (Glucophage) 500 mg PO BID [facility] Last Admin: 06/06/18 09:28 Dose: 500 mg Mupirocin (Bactroban Ointment) 0 gm TOP BID [facility] Last Admin: 06/06/18 09:29 Dose: 1 applic Pantoprazole Sodium (Protonix Ec Tab) 40 mg PO 0600 [facility] Last Admin: 06/06/18 06:05 Dose: 40 mg Thiamine HCl (Vitamin B1 Tab) 100 mg PO DAILY [facility] Last Admin: 06/06/18 09:30 Dose: 100 mg - Labs Labs: 05/31/18 06:45 05/31/18 06:45 PT 12.5 SECONDS (9.4-12.5) 12/09/17 10:00 INR 1.09 (0.93-1.08) H 12/09/17 10:00 APTT 28.3 Seconds (25.1-36.5) 11/30/17 05:30 Attending/Attestation - Attestation I have personally seen and examined this patient.: Yes I have fully participated in the care of the patient.: Yes I have reviewed all pertinent clinical information, including history, physical exam and plan: Yes
--- NOTE | 2018-06-06 19:22 | CP.PCM.PN ---
Subjective - Date & Time of Evaluation Date of Evaluation: 06/06/18 Time of Evaluation: 10:50 - Subjective Subjective: Afebrile, comfortable in bed. Objective - Vital Signs/Intake and Output Vital Signs (last 24 hours): Temp Pulse Resp BP Pulse Ox 98.2 F 87 20 128/84 97 06/06/18 08:07 06/06/18 08:07 06/06/18 08:07 06/06/18 08:07 06/06/18 08:07 Intake and Output: 06/06/18 06/06/18 06:59 18:59 Intake Total 360 Balance 360 - Medications Medications: Current Medications Aspirin (Aspirin Chewable) 81 mg PO DAILY [facility] Last Admin: 06/06/18 09:28 Dose: 81 mg Atorvastatin Calcium (Lipitor) 20 mg PO DIN [facility] Last Admin: 06/05/18 17:39 Dose: 20 mg Citalopram Hydrobromide (Celexa) 10 mg PO DAILY [facility] Last Admin: 06/06/18 09:28 Dose: 10 mg Collagenase (Santyl) 0 gm TOP DAILY [facility] Last Admin: 06/06/18 09:28 Dose: Not Given Ferrous Sulfate (Feosol Liq) 300 mg PO BID [facility] Last Admin: 06/06/18 09:28 Dose: 300 mg Insulin Human Lispro (Humalog Low) 0 units SC [facility] PRN Reason: Protocol Last Admin: 06/06/18 11:27 Dose: Not Given Lisinopril (Zestril) 10 mg PO DAILY [facility] Last Admin: 06/06/18 09:28 Dose: 10 mg Metformin HCl (Glucophage) 500 mg PO BID [facility] Last Admin: 06/06/18 09:28 Dose: 500 mg Mupirocin (Bactroban Ointment) 0 gm TOP BID [facility] Last Admin: 06/06/18 09:29 Dose: 1 applic Pantoprazole Sodium (Protonix Ec Tab) 40 mg PO 0600 [facility] Last Admin: 06/06/18 06:05 Dose: 40 mg Thiamine HCl (Vitamin B1 Tab) 100 mg PO DAILY [facility] Last Admin: 06/06/18 09:30 Dose: 100 mg - Labs Labs: 05/31/18 06:45 05/31/18 06:45 PT 12.5 SECONDS (9.4-12.5) 12/09/17 10:00 INR 1.09 (0.93-1.08) H 12/09/17 10:00 APTT 28.3 Seconds (25.1-36.5) 11/30/17 05:30 - Constitutional Appears: Chronically Ill - Head Exam Head Exam: NORMAL INSPECTION - Respiratory Exam Respiratory Exam: Decreased Breath Sounds - Cardiovascular Exam Cardiovascular Exam: +S1, +S2 - GI/Abdominal Exam GI & Abdominal Exam: Soft. absent: Tenderness Assessment and Plan - Assessment and Plan (Free Text) Plan: Assessment S/P systemic inflammatory response syndrome, with no evidence of sepsis or infection, resolved S/P sepsis due to strep viridans and CoNS bacteremia from right gluteal and back cellulitis liver masses noted on ultrasound S/P multifocal HCAP on top of Influenza A infection S/P Sammie infection of sacral area as well peripheral vascular disease Plan continue to monitor clinically off antibiotics since he is at risk for healthcare-associated infections - repeat blood cx are negative, PCT is normal urine culture shows contamination - follow up further plans for the liver masses noted on ultrasound abdomen
[2018-06-07] MEDS: Pantoprazole 40 mg EC Tab PO SCH (05:21)
--- NOTE | 2018-06-07 05:47 | CP.PCM.PN ---
<Mariano Morin - Last Filed: 06/07/18 13:53> Subjective - Date & Time of Evaluation Date of Evaluation: 06/07/18 Time of Evaluation: 05:47 - Subjective Subjective: Mariano Morin DO PGY1 - Internal Medicine Coding Director - Hospital Progress Note Seen and examined this AM at bedside, No issues reported overnight No acute complaints this AM Denies chest pain, SOB, cough, abd pain, N/V/D/C, Patient is at baseline Objective - Vital Signs/Intake and Output Vital Signs (last 24 hours): Temp Pulse Resp BP Pulse Ox 97.8 F 75 19 135/84 98 06/06/18 16:00 06/06/18 16:00 06/06/18 16:00 06/06/18 16:00 06/06/18 16:00 Intake and Output: 06/06/18 06/07/18 18:59 06:59 Intake Total 300 Balance 300 - Medications Medications: Current Medications Aspirin (Aspirin Chewable) 81 mg PO DAILY [facility] Last Admin: 06/06/18 09:28 Dose: 81 mg Atorvastatin Calcium (Lipitor) 20 mg PO DIN [facility] Last Admin: 06/06/18 17:17 Dose: 20 mg Citalopram Hydrobromide (Celexa) 10 mg PO DAILY [facility] Last Admin: 06/06/18 09:28 Dose: 10 mg Collagenase (Santyl) 0 gm TOP DAILY [facility] Last Admin: 06/06/18 09:28 Dose: Not Given Ferrous Sulfate (Feosol Liq) 300 mg PO BID [facility] Last Admin: 06/06/18 17:17 Dose: 300 mg Insulin Human Lispro (Humalog Low) 0 units SC [facility] PRN Reason: Protocol Last Admin: 06/06/18 22:11 Dose: Not Given Lisinopril (Zestril) 10 mg PO DAILY [facility] Last Admin: 06/06/18 09:28 Dose: 10 mg Metformin HCl (Glucophage) 500 mg PO BID [facility] Last Admin: 06/06/18 17:17 Dose: 500 mg Mupirocin (Bactroban Ointment) 0 gm TOP BID [facility] Last Admin: 06/06/18 17:18 Dose: 1 applic Pantoprazole Sodium (Protonix Ec Tab) 40 mg PO 0600 [facility] Last Admin: 06/07/18 05:21 Dose: 40 mg Thiamine HCl (Vitamin B1 Tab) 100 mg PO DAILY [facility] Last Admin: 06/06/18 09:30 Dose: 100 mg - Labs Labs: 05/31/18 06:45 05/31/18 06:45 PT 12.5 SECONDS (9.4-12.5) 12/09/17 10:00 INR 1.09 (0.93-1.08) H 12/09/17 10:00 APTT 28.3 Seconds (25.1-36.5) 11/30/17 05:30 Physical Exam - Constitutional Appears: Comfortable in bed, no distress or agitation noted - Head Exam Head Exam: ATRAUMATIC, NORMAL INSPECTION, NORMOCEPHALIC - Eye Exam Eye Exam: EOMI, Normal appearance, PERRL - ENT Exam ENT Exam: Mucous Membranes Moist, Normal Oropharynx - Neck Exam Neck Exam: Full ROM, Normal Inspection - Respiratory Exam Respiratory Exam: Clear to Ausculation Bilateral, NORMAL BREATHING PATTERN, no rales, wheezes or rhonchi - Cardiovascular Exam Cardiovascular Exam: REGULAR RHYTHM, +S1, +S2 - GI/Abdominal Exam GI & Abdominal Exam: Soft, Normal Bowel Sounds - Extremities Exam Extremities Exam: Normal Capillary Refill, Normal Inspection Additional comments: Both L and R foot w/ optifoam bandages on at this time. Dressings are CDI - Back Exam Back Exam: NORMAL INSPECTION - Neurological Exam Neurological Exam: Alert, Awake Additional comments: Oriented x1 - Psychiatric Exam Psychiatric exam: No change in affect from day prior; still with flat affect; short one word answers, Minimally conversant - Skin Skin Exam: Dry, Intact, Warm Assessment and Plan - Assessment and Plan (Free Text) Assessment: 57 year old male unknown PMHx admitted on 11/29/17 for AMS, right hip cellulitis , multifocal pneumonia, influenza A, strep viridians bacteremia with findings of stroke on MRI - acute vs. 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 Patient was treated for bacteremia with IV abx. Guardianship establishment pending court date; pending for 06/30/2018 The patient remains to be at his medical and mental baseline at this time. A list of his medical problems and active management can be found below: Plan: Anemia: H/H slowly downtrending over hospitalization; patient has had + heme occult test as well as known colonic polyp Most likely Fe+ deficiency in nature Patient with a microcytic anemia Iron level low TIBC wnl Retic count pending Started ferrous sulfate PO BID 05/26 Continue monitoring for constipation given new onset iron supplement Altered mental status At baseline this AM Cont. delirium precautions PT -patient refusing to participate Cont ASA 81 QD / LIPITOR 20 QD Dorsal Right Foot Ulcer Bandaged. Non purulent. Podiatry recommendations appreciated Wound care following [facility] No antibiotics warranted at this time per ID Coag negative Staphylococcus bacteremia - resolved Last bld clx negative 12/04/17 with completion of 6 week course of antibiotics Monitor WBC, ESR, CRP weekly Echocardiogram unable to rule out vegetations, family is unavailable for consent for TAHIR Colonic mass CT Abd/Pelvis showing colonic mass and hepatic lesions GI consulted: follow recs Flex sig/colonoscopy refused by patient Family unable to be contacted for consent Diabetes mellitus type 2 Cont ISS low Cont Metformin 500mg BID Cont accuchecks Carb consistent diet HTN BP Stable, continue to monitor Cont Lisinopril 10 QD Pressures are currently well controlled without Amlodipine 10 mg PO QD Can resume if pressures increase Leukocytosis - RESOLVED WBC elevated 05/17 Patient srinivasan cultured Blood cx negative x2 after 48H Urine cx w/ multiple species ML contaminated Abd U/S - 7mm common bile duct dilatation and gallstones; Hepatic lesions measuring up to 4.9cm and 3.8 cm; compared to prev abd U/S from 12/05 lesions measured 4.1cm and 3.1cm No RUQ tenderness appreciated on exam; ID following, appreciate reccs Affective disorder Cont Celexa 10mg PO Daily Constipation Colace 100mg BID Miralax 17gm BID Discontinued Lactulose Hx ETOH Abuse Cont Thiamine Cont Folic Acid Cont Multivitamin DVT Prophylaxis: SCDs Dispo: Patient continues to display a lack of decision making capacity: Guardianship status yet to be determined; court date is tentative for 06/30/2018 Pt. seen, examined, and discussed with attending physician Dr. April Morin DO PGY1 Internal Medicine Coding Director - Pager [phone] <April Morin R - Last Filed: 06/08/18 08:49> Objective - Vital Signs/Intake and Output Vital Signs (last 24 hours): Temp Pulse Resp BP Pulse Ox 98.7 F 76 20 121/78 97 06/08/18 07:35 06/08/18 07:35 06/08/18 07:35 06/08/18 07:35 06/08/18 07:35 - Medications Medications: Current Medications Aspirin (Aspirin Chewable) 81 mg PO DAILY [facility] Last Admin: 06/07/18 09:18 Dose: 81 mg Atorvastatin Calcium (Lipitor) 20 mg PO DIN [facility] Last Admin: 06/07/18 17:13 Dose: 20 mg Citalopram Hydrobromide (Celexa) 10 mg PO DAILY [facility] Last Admin: 06/07/18 09:18 Dose: 10 mg Collagenase (Santyl) 0 gm TOP DAILY [facility] Last Admin: 06/07/18 09:19 Dose: Not Given Ferrous Sulfate (Feosol Liq) 300 mg PO BID [facility] Last Admin: 06/07/18 17:14 Dose: Not Given Insulin Human Lispro (Humalog Low) 0 units SC [facility] PRN Reason: Protocol Last Admin: 06/07/18 23:30 Dose: Not Given Lisinopril (Zestril) 10 mg PO DAILY [facility] Last Admin: 06/07/18 09:19 Dose: 10 mg Metformin HCl (Glucophage) 500 mg PO BID [facility] Last Admin: 06/07/18 17:13 Dose: 500 mg Mupirocin (Bactroban Ointment) 0 gm TOP BID [facility] Last Admin: 06/07/18 17:14 Dose: 1 applic Pantoprazole Sodium (Protonix Ec Tab) 40 mg PO 0600 [facility] Last Admin: 06/08/18 05:26 Dose: 40 mg Thiamine HCl (Vitamin B1 Tab) 100 mg PO DAILY [facility] Last Admin: 06/07/18 09:19 Dose: 100 mg - Labs Labs: 06/07/18 06:00 06/07/18 06:00 PT 12.5 SECONDS (9.4-12.5) 12/09/17 10:00 INR 1.09 (0.93-1.08) H 12/09/17 10:00 APTT 28.3 Seconds (25.1-36.5) 11/30/17 05:30 Attending/Attestation - Attestation I have personally seen and examined this patient.: Yes I have fully participated in the care of the patient.: Yes I have reviewed all pertinent clinical information, including history, physical exam and plan: Yes Notes (Text): Patient seen and examined by me at 10:05AM with resident 06/07/18. Case including HPI, physical exam, and assessment and plan discussed with resident. Agree with above with following additions/corrections. Patient is a 57-year-old male with unknown past medical history who was brought in to the emergency room with altered mental mental status and was admitted with sepsis. Patient states he is feeling fine. He denies any chest pain or shortness of breath. States he had eggs for breakfast. No headaches or dizziness. No fevers or chills. No nausea, vomiting, or abdominal pain. Patient states he does not want to sit in a chair. Physical exam: Gen: Awake and alert sitting up in bed in no acute distress HEENT: Normocephalic, atraumatic. Extraocular muscles intact, pupils equal reactive. No scleral icterus. Cardiovascular: Normal rhythm. Normal S1, S2. No murmurs, rubs, or gallops appreciated Pulmonary: Normal respiratory effort. No rhonchi, rales or wheezing appreciated. Gastrointestinal: Soft, nondistended, nontender. Positive bowel sounds all 4 quadrants. No guarding. Musculoskeletal: Moves all extremities. No calf tenderness Central nervous system: Awake and alert. Dermatologic: Skin warm and dry Assessment and plan: Patient is a 57-year-old male with unknown past medical history who was brought in to the emergency room with altered mental mental status. 1. Altered mental status. At baseline. Continue delirium precautions. Continue supportive care. Continue ASA and Lipitor. CT head on 11/29/2017 per radiology showed no evidence of acute intracranial hemorrhage, mass effect, or midline shift; dilated ventricles out of proportion of mildly dilated sulci which may represent central atrophy versus hydrocephalus; extensive diffuse white matter changes suggestive but not specific for chronic microvascular ischemic disease. 2. Anemia. Likey iron deficient. H&H stable. Continue ferrous sulfate. Continue to monitor CBC 3. Right foot ulcer. Podiatry following, recommendations appreciated. Continue local wound care. 4. DM2. Continue insulin sliding scale and metformin. Continue to monitor accuchecks 5. Essential hypertension. Continue Lisinopril, well on controlled. 6. Colon mass. CT chest/abd/pelvis per radiologist showed soft tissue lesion within rectosigmoid colon, malignancy not excluded; cholelithiasis. Intervention refused by patient. Family not available to consent. 7. Mood disorder. Continue Celexa. Patient unable to make own decisions. No family available. Guardianship pending 8. S/P bacteremia, cellulitis, and pneumonia. Resolved. S/P antibiotic treatment. 9. CVA. Continue ASA and Lipitor 10. Out of bed to chair 11. Pending placement/guardianship.
[2018-06-07 06:40] LABS: BASO # 0.03 K/mm3 (0.0-2.0); BASO % 0.3 % (0.0-3.0); EOS # 0.2 (0.0-0.7); EOS % 2.1 % (1.5-5.0); GRAN # 5.55 (1.4-6.5); GRAN % 59.6 % (50.0-68.0); LYMPH % 31.8 % (22.0-35.0); MEAN CORPUSCULAR HEMOGLOBIN 24.2 pg (25.0-35.0); MEAN CORPUSCULAR HGB CONC 31.4 g/dl (31.0-37.0); MEAN PLATELET VOLUME 8.8 fl (7.0-11.0); MONO # 0.6 (0.1-0.6); MONO % 6.2 % (1.0-6.0); RBC 4.13 10^6/uL (3.5-6.1); RED CELL DISTRIBUTION WIDTH 15.5 % (11.5-14.5); WHITE BLOOD COUNT 9.3 10^3/ul (4.5-11.0)
[2018-06-07 07:02] LABS: ALB/GLOB RATIO 1.1 (1.1-1.8); ALBUMIN 3.8 g/dL (3.0-4.8); ALT/SGPT 28 U/L (7-56); AST/SGOT 33 U/L (17-59); BLOOD UREA NITROGEN 16 mg/dL (7-21); CALCIUM 9.3 mg/dL (8.4-10.5); GFR NON-AFRICAN AMERICAN > 60
[2018-06-07] MEDS: Insulin Lispro (humaLOG) LOW Coverage SC SCH ×4 (07:43→23:30)
[2018-06-07] MEDS: Ferrous Sulfate 300 mg/5 mL Liq UD PO SCH ×2 (09:18→17:14)
[2018-06-07] MEDS: Collagenase 250 Units/gm Ointment(30 gm) TOP SCH (09:19)
[2018-06-07] MEDS: Mupirocin 2% Ointment 15 GM TUBE TOP SCH ×2 (09:20→17:14)
--- NOTE | 2018-06-07 13:42 | CP.PCM.PN ---
<Kavitha Morin - Last Filed: 06/07/18 13:37> Subjective - Date & Time of Evaluation Date of Evaluation: 06/07/18 Time of Evaluation: 13:38 - Subjective Subjective: Podiatry Progress Note for Dr. Davis 58 y/o male seen and evaluated at bedside for right anterior ankle ulceration and left ankle abrasion. Patient is resting comfortably in bed and in NAD at time of visit. No heel offloading boots noted to feet at this time. Denies any acute overnight events or new pedal complaints. Objective - Vital Signs/Intake and Output Vital Signs (last 24 hours): Temp Pulse Resp BP Pulse Ox 97.9 F 79 20 110/69 95 06/07/18 08:03 06/07/18 08:03 06/07/18 08:03 06/07/18 08:03 06/07/18 08:03 Intake and Output: 06/07/18 06/07/18 06:59 18:59 Intake Total 360 Balance 360 - Medications Medications: Current Medications Aspirin (Aspirin Chewable) 81 mg PO DAILY [facility] Last Admin: 06/07/18 09:18 Dose: 81 mg Atorvastatin Calcium (Lipitor) 20 mg PO DIN [facility] Last Admin: 06/06/18 17:17 Dose: 20 mg Citalopram Hydrobromide (Celexa) 10 mg PO DAILY [facility] Last Admin: 06/07/18 09:18 Dose: 10 mg Collagenase (Santyl) 0 gm TOP DAILY [facility] Last Admin: 06/07/18 09:19 Dose: Not Given Ferrous Sulfate (Feosol Liq) 300 mg PO BID [facility] Last Admin: 06/07/18 09:18 Dose: 300 mg Insulin Human Lispro (Humalog Low) 0 units SC [facility] PRN Reason: Protocol Last Admin: 06/07/18 11:39 Dose: Not Given Lisinopril (Zestril) 10 mg PO DAILY [facility] Last Admin: 06/07/18 09:19 Dose: 10 mg Metformin HCl (Glucophage) 500 mg PO BID [facility] Last Admin: 06/07/18 09:18 Dose: 500 mg Mupirocin (Bactroban Ointment) 0 gm TOP BID [facility] Last Admin: 06/07/18 09:20 Dose: 1 applic Pantoprazole Sodium (Protonix Ec Tab) 40 mg PO 0600 [facility] Last Admin: 06/07/18 05:21 Dose: 40 mg Thiamine HCl (Vitamin B1 Tab) 100 mg PO DAILY [facility] Last Admin: 06/07/18 09:19 Dose: 100 mg - Labs Labs: 06/07/18 06:00 06/07/18 06:00 PT 12.5 SECONDS (9.4-12.5) 12/09/17 10:00 INR 1.09 (0.93-1.08) H 12/09/17 10:00 APTT 28.3 Seconds (25.1-36.5) 11/30/17 05:30 - Constitutional Appears: Well, Non-toxic, No Acute Distress - Extremities Exam Additional comments: B/L Lower extremity exam: VASC: DP and PT faintly palpable b/l, CFT delayed > 3 seconds x 10 digits, temperature gradient cool to cool, no edema noted to the lower extremities NEURO: Epicritic and protective sensation grossly intact b/l DERM: Ulceration noted to the anterior aspect of right ankle at the level of the ankle joint measuring approximately 2 cm x 1 cm x 0.1 cm, wound is mainly fibro-grannular. Minimal periwound erythema noted. No streaking, no drainage, no tunneling, no abscess, no odor or drainage, no fluctuance noted, no other clinical signs of infection. No probe to bone. Abrasion noted to left anterior ankle, No clinical signs of infection or break in skin appreciated ORTHO: no pain with palpation to the entire lower extremity, no calf pain or tenderness appreciated, unable to assess MMT secondary to patient's cooperation - Neurological Exam Neurological Exam: Alert, Awake, Oriented x3 - Psychiatric Exam Psychiatric exam: Normal Affect, Normal Mood Assessment and Plan - Assessment and Plan (Free Text) Assessment: 58 y/o male seen at bedside for right anterior ankle ulceration and left ankle abrasion Plan: Patient seen and evaluated at bedside Discussed with attending Dr. Davis Chart, labs and vitals reviewed Afebrile, absent leukocytosis Bilateral ankles dressed with bactroban, optifoam No plan for surgical intervention at this time Stable from podiatry standpoint Podiatry will continue to follow while patient in house <Raciel Davis - Last Filed: 06/09/18 09:35> Objective - Vital Signs/Intake and Output Vital Signs (last 24 hours): Temp Pulse Resp BP Pulse Ox 98.2 F 79 20 106/70 94 L 06/09/18 08:16 06/09/18 08:16 06/09/18 08:16 06/09/18 08:16 06/09/18 08:16 - Medications Medications: Current Medications Aspirin (Aspirin Chewable) 81 mg PO DAILY [facility] Last Admin: 06/08/18 10:09 Dose: 81 mg Atorvastatin Calcium (Lipitor) 20 mg PO DIN [facility] Last Admin: 06/08/18 19:19 Dose: 20 mg Citalopram Hydrobromide (Celexa) 10 mg PO DAILY [facility] Last Admin: 06/08/18 10:09 Dose: 10 mg Collagenase (Santyl) 0 gm TOP DAILY [facility] Last Admin: 06/08/18 10:11 Dose: Not Given Ferrous Sulfate (Feosol Liq) 300 mg PO BID [facility] Last Admin: 06/08/18 17:43 Dose: Not Given Insulin Human Lispro (Humalog Low) 0 units SC [facility] PRN Reason: Protocol Last Admin: 06/09/18 07:50 Dose: Not Given Lisinopril (Zestril) 10 mg PO DAILY [facility] Last Admin: 06/08/18 10:09 Dose: 10 mg Metformin HCl (Glucophage) 500 mg PO BID [facility] Last Admin: 06/08/18 19:19 Dose: 500 mg Mupirocin (Bactroban Ointment) 0 gm TOP BID [facility] Last Admin: 06/08/18 17:43 Dose: Not Given Pantoprazole Sodium (Protonix Ec Tab) 40 mg PO 0600 [facility] Last Admin: 06/09/18 05:39 Dose: 40 mg Thiamine HCl (Vitamin B1 Tab) 100 mg PO DAILY [facility] Last Admin: 06/08/18 10:09 Dose: 100 mg - Labs Labs: 06/07/18 06:00 06/07/18 06:00 PT 12.5 SECONDS (9.4-12.5) 12/09/17 10:00 INR 1.09 (0.93-1.08) H 12/09/17 10:00 APTT 28.3 Seconds (25.1-36.5) 11/30/17 05:30 Attending/Attestation - Attestation I have personally seen and examined this patient.: Yes I have fully participated in the care of the patient.: Yes I have reviewed all pertinent clinical information, including history, physical exam and plan: Yes
--- NOTE | 2018-06-07 15:04 | CP.PCM.PN ---
Subjective - Date & Time of Evaluation Date of Evaluation: 06/07/18 Time of Evaluation: 11:55 - Subjective Subjective: No fevers, not in distress, no vomiting, no diarrhea. Objective - Vital Signs/Intake and Output Vital Signs (last 24 hours): Temp Pulse Resp BP Pulse Ox 97.9 F 79 20 110/69 95 06/07/18 08:03 06/07/18 08:03 06/07/18 08:03 06/07/18 08:03 06/07/18 08:03 Intake and Output: 06/07/18 06/07/18 06:59 18:59 Intake Total 360 Balance 360 - Medications Medications: Current Medications Aspirin (Aspirin Chewable) 81 mg PO DAILY [facility] Last Admin: 06/07/18 09:18 Dose: 81 mg Atorvastatin Calcium (Lipitor) 20 mg PO DIN [facility] Last Admin: 06/06/18 17:17 Dose: 20 mg Citalopram Hydrobromide (Celexa) 10 mg PO DAILY [facility] Last Admin: 06/07/18 09:18 Dose: 10 mg Collagenase (Santyl) 0 gm TOP DAILY [facility] Last Admin: 06/07/18 09:19 Dose: Not Given Ferrous Sulfate (Feosol Liq) 300 mg PO BID [facility] Last Admin: 06/07/18 09:18 Dose: 300 mg Insulin Human Lispro (Humalog Low) 0 units SC [facility] PRN Reason: Protocol Last Admin: 06/07/18 11:39 Dose: Not Given Lisinopril (Zestril) 10 mg PO DAILY [facility] Last Admin: 06/07/18 09:19 Dose: 10 mg Metformin HCl (Glucophage) 500 mg PO BID [facility] Last Admin: 06/07/18 09:18 Dose: 500 mg Mupirocin (Bactroban Ointment) 0 gm TOP BID [facility] Last Admin: 06/07/18 09:20 Dose: 1 applic Pantoprazole Sodium (Protonix Ec Tab) 40 mg PO 0600 [facility] Last Admin: 06/07/18 05:21 Dose: 40 mg Thiamine HCl (Vitamin B1 Tab) 100 mg PO DAILY [facility] Last Admin: 06/07/18 09:19 Dose: 100 mg - Labs Labs: 06/07/18 06:00 06/07/18 06:00 PT 12.5 SECONDS (9.4-12.5) 12/09/17 10:00 INR 1.09 (0.93-1.08) H 12/09/17 10:00 APTT 28.3 Seconds (25.1-36.5) 11/30/17 05:30 - Constitutional Appears: Non-toxic, No Acute Distress, Chronically Ill - Head Exam Head Exam: NORMAL INSPECTION - Respiratory Exam Respiratory Exam: Decreased Breath Sounds - Cardiovascular Exam Cardiovascular Exam: +S1, +S2 - GI/Abdominal Exam GI & Abdominal Exam: Soft. absent: Tenderness Assessment and Plan - Assessment and Plan (Free Text) Plan: Assessment S/P systemic inflammatory response syndrome, with no evidence of sepsis or infection, resolved S/P sepsis due to strep viridans and CoNS bacteremia from right gluteal and back cellulitis liver masses noted on ultrasound S/P multifocal HCAP on top of Influenza A infection S/P Sammie infection of sacral area as well peripheral vascular disease Plan continue to monitor clinically off antibiotics since he is at risk for nosocomial infections - repeat blood cx are negative, PCT is normal urine culture shows contamination - follow up further plans for the liver masses noted on ultrasound abdomen
[2018-06-08] MEDS: Pantoprazole 40 mg EC Tab PO SCH (05:26)
--- NOTE | 2018-06-08 07:41 | CP.PCM.PN ---
<Mariano Morin - Last Filed: 06/08/18 14:19> Subjective - Date & Time of Evaluation Date of Evaluation: 06/08/18 Time of Evaluation: 07:39 - Subjective Subjective: Mariano Morin DO PGY1 - Internal Medicine [employer] - Hospital Progress Note Patient was seen and examined episode this morning, no complaints offered at this time, no acute events reported overnight by nursing. 12 system review of systems is otherwise negative at this time. Patient is at baseline. Objective - Vital Signs/Intake and Output Vital Signs (last 24 hours): Temp Pulse Resp BP Pulse Ox 98.7 F 76 20 121/78 97 06/08/18 07:35 06/08/18 07:35 06/08/18 07:35 06/08/18 07:35 06/08/18 07:35 - Medications Medications: Current Medications Aspirin (Aspirin Chewable) 81 mg PO DAILY [facility] Last Admin: 06/07/18 09:18 Dose: 81 mg Atorvastatin Calcium (Lipitor) 20 mg PO DIN [facility] Last Admin: 06/07/18 17:13 Dose: 20 mg Citalopram Hydrobromide (Celexa) 10 mg PO DAILY [facility] Last Admin: 06/07/18 09:18 Dose: 10 mg Collagenase (Santyl) 0 gm TOP DAILY [facility] Last Admin: 06/07/18 09:19 Dose: Not Given Ferrous Sulfate (Feosol Liq) 300 mg PO BID [facility] Last Admin: 06/07/18 17:14 Dose: Not Given Insulin Human Lispro (Humalog Low) 0 units SC ACHS [facility] PRN Reason: Protocol Last Admin: 06/07/18 23:30 Dose: Not Given Lisinopril (Zestril) 10 mg PO DAILY [facility] Last Admin: 06/07/18 09:19 Dose: 10 mg Metformin HCl (Glucophage) 500 mg PO BID [facility] Last Admin: 06/07/18 17:13 Dose: 500 mg Mupirocin (Bactroban Ointment) 0 gm TOP BID [facility] Last Admin: 06/07/18 17:14 Dose: 1 applic Pantoprazole Sodium (Protonix Ec Tab) 40 mg PO 0600 [facility] Last Admin: 06/08/18 05:26 Dose: 40 mg Thiamine HCl (Vitamin B1 Tab) 100 mg PO DAILY [facility] Last Admin: 06/07/18 09:19 Dose: 100 mg - Labs Labs: 06/07/18 06:00 06/07/18 06:00 PT 12.5 SECONDS (9.4-12.5) 12/09/17 10:00 INR 1.09 (0.93-1.08) H 12/09/17 10:00 APTT 28.3 Seconds (25.1-36.5) 11/30/17 05:30 Physical Exam - Constitutional Appears: Comfortable in bed, no distress or agitation noted - Head Exam Head Exam: ATRAUMATIC, NORMAL INSPECTION, NORMOCEPHALIC - Eye Exam Eye Exam: EOMI, Normal appearance, PERRL - ENT Exam ENT Exam: Mucous Membranes Moist, Normal Oropharynx - Neck Exam Neck Exam: Full ROM, Normal Inspection - Respiratory Exam Respiratory Exam: Clear to Ausculation Bilateral, NORMAL BREATHING PATTERN, no rales, wheezes or rhonchi - Cardiovascular Exam Cardiovascular Exam: REGULAR RHYTHM, +S1, +S2 - GI/Abdominal Exam GI & Abdominal Exam: Soft, Normal Bowel Sounds - Extremities Exam Extremities Exam: Normal Capillary Refill, Normal Inspection Additional comments: Both L and R foot w/ optifoam bandages on at this time. Dressings are CDI - Back Exam Back Exam: NORMAL INSPECTION - Neurological Exam Neurological Exam: Alert, Awake Additional comments: Oriented x1 - Psychiatric Exam Psychiatric exam: No change in affect from day prior; still with flat affect; short one word answers, Minimally conversant - Skin Skin Exam: Dry, Intact, Warm Assessment and Plan - Assessment and Plan (Free Text) Assessment: 57 year old male unknown PMHx admitted on 11/29/17 for AMS, right hip cellulitis , multifocal pneumonia, influenza A, strep viridians bacteremia with findings of stroke on MRI - acute vs. 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 Patient was treated for bacteremia with IV abx. Guardianship establishment pending court date; pending for 06/30/2018 The patient remains to be at his medical and mental baseline at this time. A list of his medical problems and active management can be found below: Plan: Anemia: H/H slowly downtrending over hospitalization; patient has had + heme occult test as well as known colonic polyp Most likely Fe+ deficiency in nature Patient with a microcytic anemia Iron level low TIBC wnl Retic count pending Started ferrous sulfate PO BID 05/26 Continue monitoring for constipation given new onset iron supplement Altered mental status At baseline this AM Cont. delirium precautions PT -patient refusing to participate Cont ASA 81 QD / LIPITOR 20 QD Dorsal Right Foot Ulcer Bandaged. Non purulent. Podiatry recommendations appreciated Wound care following On [facility] No antibiotics warranted at this time per ID Coag negative Staphylococcus bacteremia - resolved Last bld clx negative 12/04/17 with completion of 6 week course of antibiotics Monitor WBC, ESR, CRP weekly Echocardiogram unable to rule out vegetations, family is unavailable for consent for TAHIR Colonic mass CT Abd/Pelvis showing colonic mass and hepatic lesions GI consulted: follow recs Flex sig/colonoscopy refused by patient Family unable to be contacted for consent Diabetes mellitus type 2 Cont ISS low Cont Metformin 500mg BID Cont accuchecks Carb consistent diet HTN BP Stable, continue to monitor Cont Lisinopril 10 QD Pressures are currently well controlled without Amlodipine 10 mg PO QD Can resume if pressures increase Leukocytosis - RESOLVED WBC elevated 05/17 Patient srinivasan cultured Blood cx negative x2 after 48H Urine cx w/ multiple species ML contaminated Abd U/S - 7mm common bile duct dilatation and gallstones; Hepatic lesions measuring up to 4.9cm and 3.8 cm; compared to prev abd U/S from 12/05 lesions measured 4.1cm and 3.1cm No RUQ tenderness appreciated on exam; ID following, appreciate reccs Affective disorder Cont Celexa 10mg PO Daily Constipation Colace 100mg BID Miralax 17gm BID Discontinued Lactulose Hx ETOH Abuse Cont Thiamine Cont Folic Acid Cont Multivitamin DVT Prophylaxis: SCDs Dispo: Patient continues to display a lack of decision making capacity: Guardianship status yet to be determined; court date is tentative for 06/30/2018 Pt. seen, examined, and discussed with attending physician Dr. April Morin DO PGY1 Internal Medicine [employer] - Pager [phone] <April Morin R - Last Filed: 06/10/18 20:35> Objective - Vital Signs/Intake and Output Vital Signs (last 24 hours): Temp Pulse Resp BP Pulse Ox 98.2 F 88 19 100/60 95 06/10/18 16:21 06/10/18 16:21 06/10/18 16:21 06/10/18 16:21 06/10/18 16:21 Intake and Output: 08/24/18 08/25/18 18:59 06:59 Intake Total 1200 Balance 1200 - Medications Medications: Current Medications Aspirin (Aspirin Chewable) 81 mg PO DAILY [facility] Last Admin: 06/10/18 09:05 Dose: 81 mg Atorvastatin Calcium (Lipitor) 20 mg PO DIN [facility] Last Admin: 06/10/18 17:04 Dose: 20 mg Citalopram Hydrobromide (Celexa) 10 mg PO DAILY [facility] Last Admin: 06/10/18 09:05 Dose: 10 mg Collagenase (Santyl) 0 gm TOP DAILY [facility] Last Admin: 06/10/18 09:06 Dose: 1 applic Ferrous Sulfate (Feosol Liq) 300 mg PO BID [facility] Last Admin: 06/10/18 17:04 Dose: 300 mg Insulin Human Lispro (Humalog Low) 0 units SC [facility] PRN Reason: Protocol Last Admin: 06/10/18 16:46 Dose: Not Given Lisinopril (Zestril) 10 mg PO DAILY [facility] Last Admin: 06/10/18 09:05 Dose: 10 mg Metformin HCl (Glucophage) 500 mg PO BID [facility] Last Admin: 06/10/18 17:04 Dose: 500 mg Mupirocin (Bactroban Ointment) 0 gm TOP BID [facility] Last Admin: 06/10/18 17:05 Dose: 1 applic Pantoprazole Sodium (Protonix Ec Tab) 40 mg PO 0600 [facility] Last Admin: 06/10/18 05:46 Dose: 40 mg Thiamine HCl (Vitamin B1 Tab) 100 mg PO DAILY [facility] Last Admin: 06/10/18 09:05 Dose: 100 mg - Labs Labs: 06/07/18 06:00 06/07/18 06:00 PT 12.5 SECONDS (9.4-12.5) 12/09/17 10:00 INR 1.09 (0.93-1.08) H 12/09/17 10:00 APTT 28.3 Seconds (25.1-36.5) 11/30/17 05:30 Attending/Attestation - Attestation I have personally seen and examined this patient.: Yes I have fully participated in the care of the patient.: Yes I have reviewed all pertinent clinical information, including history, physical exam and plan: Yes Notes (Text): Patient seen and examined by me at 9:55AM with resident 06/08/18. Case including HPI, physical exam, and assessment and plan discussed with resident. Agree with above with following additions/corrections. Patient is a 57-year-old male with unknown past medical history who was brought in to the emergency room with altered mental mental status and was admitted with sepsis. Patient states he is feeling ok. States he only had eggs for breakfast today. Denies any pain in his legs. No chest pain or shortness of breath. No headaches or dizziness. No fevers or chills. No nausea, vomiting, or abdominal pain. Physical exam: Gen: Awake and alert sitting up in bed in no acute distress HEENT: Normocephalic, atraumatic. Extraocular muscles intact, pupils equal reactive. No scleral icterus. Cardiovascular: Normal rhythm. Normal S1, S2. No murmurs, rubs, or gallops appreciated Pulmonary: Normal respiratory effort. No rhonchi, rales or wheezing appreciated. Gastrointestinal: Soft, nondistended, nontender. Positive bowel sounds all 4 quadrants. No guarding. Musculoskeletal: Moves all extremities. No calf tenderness Central nervous system: Awake and alert. Dermatologic: Skin warm and dry Assessment and plan: Patient is a 57-year-old male with unknown past medical history who was brought in to the emergency room with altered mental mental status. 1. Altered mental status. At baseline. Continue delirium precautions. Continue supportive care. Continue ASA and Lipitor. CT head on 11/29/2017 per radiology showed no evidence of acute intracranial hemorrhage, mass effect, or midline shift; dilated ventricles out of proportion of mildly dilated sulci which may represent central atrophy versus hydrocephalus; extensive diffuse white matter changes suggestive but not specific for chronic microvascular ischemic disease. 2. Anemia. Likey iron deficient. H&H stable. Continue ferrous sulfate. Continue to monitor CBC 3. Bilateral feet wounds. Podiatry following, recommendations appreciated. Continue local wound care. 4. DM2. Continue insulin sliding scale and metformin. Continue to monitor accuchecks 5. Essential hypertension. Continue Lisinopril 6. Colon mass. CT chest/abd/pelvis per radiologist showed soft tissue lesion within rectosigmoid colon, malignancy not excluded; cholelithiasis. Intervention refused by patient. Family not available to consent. 7. Mood disorder. Continue Celexa. Patient unable to make own decisions. No family available. Guardianship pending 8. S/P bacteremia, cellulitis, and pneumonia. Resolved. S/P antibiotic treatment. 9. CVA. Continue ASA and Lipitor 10. Encourage out of bed to chair 11. Pending placement/guardianship.
[2018-06-08] MEDS: Insulin Lispro (humaLOG) LOW Coverage SC SCH ×4 (08:08→21:53)
[2018-06-08] MEDS: Ferrous Sulfate 300 mg/5 mL Liq UD PO SCH ×2 (10:09→17:43)
[2018-06-08] MEDS: Mupirocin 2% Ointment 15 GM TUBE TOP SCH ×2 (10:10→17:43)
[2018-06-08] MEDS: Collagenase 250 Units/gm Ointment(30 gm) TOP SCH (10:11)
--- NOTE | 2018-06-08 10:37 | CP.PCM.PN ---
<Kavitha Morin - Last Filed: 06/08/18 10:36> Subjective - Date & Time of Evaluation Date of Evaluation: 06/08/18 Time of Evaluation: 10:36 - Subjective Subjective: Podiatry Progress Note for Dr. Davis 58 y/o male seen and evaluated at bedside for right anterior ankle ulceration and left ankle abrasion. Patient is resting comfortably in bed and in NAD at time of visit. Denies any acute overnight events or new pedal complaints. Objective - Vital Signs/Intake and Output Vital Signs (last 24 hours): Temp Pulse Resp BP Pulse Ox 98.7 F 76 20 121/78 97 06/08/18 07:35 06/08/18 10:09 06/08/18 07:35 06/08/18 10:09 06/08/18 07:35 - Medications Medications: Current Medications Aspirin (Aspirin Chewable) 81 mg PO DAILY [facility] Last Admin: 06/08/18 10:09 Dose: 81 mg Atorvastatin Calcium (Lipitor) 20 mg PO DIN [facility] Last Admin: 06/07/18 17:13 Dose: 20 mg Citalopram Hydrobromide (Celexa) 10 mg PO DAILY [facility] Last Admin: 06/08/18 10:09 Dose: 10 mg Collagenase (Santyl) 0 gm TOP DAILY [facility] Last Admin: 06/08/18 10:11 Dose: Not Given Ferrous Sulfate (Feosol Liq) 300 mg PO BID [facility] Last Admin: 06/08/18 10:09 Dose: 300 mg Insulin Human Lispro (Humalog Low) 0 units SC [facility] PRN Reason: Protocol Last Admin: 06/08/18 08:08 Dose: Not Given Lisinopril (Zestril) 10 mg PO DAILY [facility] Last Admin: 06/08/18 10:09 Dose: 10 mg Metformin HCl (Glucophage) 500 mg PO BID [facility] Last Admin: 06/08/18 10:09 Dose: 500 mg Mupirocin (Bactroban Ointment) 0 gm TOP BID [facility] Last Admin: 06/08/18 10:10 Dose: Not Given Pantoprazole Sodium (Protonix Ec Tab) 40 mg PO 0600 [facility] Last Admin: 06/08/18 05:26 Dose: 40 mg Thiamine HCl (Vitamin B1 Tab) 100 mg PO DAILY [facility] Last Admin: 06/08/18 10:09 Dose: 100 mg - Labs Labs: 06/07/18 06:00 06/07/18 06:00 PT 12.5 SECONDS (9.4-12.5) 12/09/17 10:00 INR 1.09 (0.93-1.08) H 12/09/17 10:00 APTT 28.3 Seconds (25.1-36.5) 11/30/17 05:30 - Constitutional Appears: Well, Non-toxic, No Acute Distress - Extremities Exam Additional comments: B/L Lower extremity exam: VASC: DP and PT faintly palpable b/l, CFT delayed > 3 seconds x 10 digits, temperature gradient cool to cool, no edema noted to the lower extremities NEURO: Epicritic and protective sensation grossly intact b/l DERM: Ulceration noted to the anterior aspect of right ankle at the level of the ankle joint measuring approximately 2 cm x 1 cm x 0.1 cm, wound is mainly fibro-grannular. Minimal periwound erythema noted. No streaking, no drainage, no tunneling, no abscess, no odor or drainage, no fluctuance noted, no other clinical signs of infection. No probe to bone. Abrasion noted to left anterior ankle, No clinical signs of infection or break in skin appreciated ORTHO: no pain with palpation to the entire lower extremity, no calf pain or tenderness appreciated, unable to assess MMT secondary to patient's cooperation - Neurological Exam Neurological Exam: Alert, Awake, Oriented x3 - Psychiatric Exam Psychiatric exam: Normal Affect, Normal Mood Assessment and Plan - Assessment and Plan (Free Text) Assessment: 58 y/o male seen at bedside for right anterior ankle ulceration and left ankle abrasion Plan: Patient seen and evaluated at bedside Discussed with attending Dr. Davis Chart, labs and vitals reviewed Afebrile, absent leukocytosis Bilateral ankles dressed with bactroban, optifoam No plan for surgical intervention at this time Stable from podiatry standpoint Podiatry will continue to follow while patient in house <Raciel Davis - Last Filed: 06/09/18 09:38> Objective - Vital Signs/Intake and Output Vital Signs (last 24 hours): Temp Pulse Resp BP Pulse Ox 98.2 F 79 20 106/70 94 L 06/09/18 08:16 06/09/18 08:16 06/09/18 08:16 06/09/18 08:16 06/09/18 08:16 - Medications Medications: Current Medications Aspirin (Aspirin Chewable) 81 mg PO DAILY [facility] Last Admin: 06/08/18 10:09 Dose: 81 mg Atorvastatin Calcium (Lipitor) 20 mg PO DIN [facility] Last Admin: 06/08/18 19:19 Dose: 20 mg Citalopram Hydrobromide (Celexa) 10 mg PO DAILY [facility] Last Admin: 06/08/18 10:09 Dose: 10 mg Collagenase (Santyl) 0 gm TOP DAILY [facility] Last Admin: 06/08/18 10:11 Dose: Not Given Ferrous Sulfate (Feosol Liq) 300 mg PO BID [facility] Last Admin: 06/08/18 17:43 Dose: Not Given Insulin Human Lispro (Humalog Low) 0 units SC [facility] PRN Reason: Protocol Last Admin: 06/09/18 07:50 Dose: Not Given Lisinopril (Zestril) 10 mg PO DAILY [facility] Last Admin: 06/08/18 10:09 Dose: 10 mg Metformin HCl (Glucophage) 500 mg PO BID [facility] Last Admin: 06/08/18 19:19 Dose: 500 mg Mupirocin (Bactroban Ointment) 0 gm TOP BID [facility] Last Admin: 06/08/18 17:43 Dose: Not Given Pantoprazole Sodium (Protonix Ec Tab) 40 mg PO 0600 [facility] Last Admin: 06/09/18 05:39 Dose: 40 mg Thiamine HCl (Vitamin B1 Tab) 100 mg PO DAILY [facility] Last Admin: 06/08/18 10:09 Dose: 100 mg - Labs Labs: 06/07/18 06:00 06/07/18 06:00 PT 12.5 SECONDS (9.4-12.5) 12/09/17 10:00 INR 1.09 (0.93-1.08) H 12/09/17 10:00 APTT 28.3 Seconds (25.1-36.5) 11/30/17 05:30 Attending/Attestation - Attestation I have personally seen and examined this patient.: Yes I have fully participated in the care of the patient.: Yes I have reviewed all pertinent clinical information, including history, physical exam and plan: Yes
--- NOTE | 2018-06-08 12:00 | CP.PCM.PN ---
Subjective - Date & Time of Evaluation Date of Evaluation: 06/08/18 Time of Evaluation: 11:10 - Subjective Subjective: Comfortable in bed, afebrile, no vomiting, no diarrhea. Objective - Vital Signs/Intake and Output Vital Signs (last 24 hours): Temp Pulse Resp BP Pulse Ox 98.7 F 76 20 121/78 97 06/08/18 07:35 06/08/18 07:35 06/08/18 07:35 06/08/18 07:35 06/08/18 07:35 - Medications Medications: Current Medications Aspirin (Aspirin Chewable) 81 mg PO DAILY [facility] Last Admin: 06/07/18 09:18 Dose: 81 mg Atorvastatin Calcium (Lipitor) 20 mg PO DIN [facility] Last Admin: 06/07/18 17:13 Dose: 20 mg Citalopram Hydrobromide (Celexa) 10 mg PO DAILY [facility] Last Admin: 06/07/18 09:18 Dose: 10 mg Collagenase (Santyl) 0 gm TOP DAILY [facility] Last Admin: 06/07/18 09:19 Dose: Not Given Ferrous Sulfate (Feosol Liq) 300 mg PO BID [facility] Last Admin: 06/07/18 17:14 Dose: Not Given Insulin Human Lispro (Humalog Low) 0 units SC [facility] PRN Reason: Protocol Last Admin: 06/07/18 23:30 Dose: Not Given Lisinopril (Zestril) 10 mg PO DAILY [facility] Last Admin: 06/07/18 09:19 Dose: 10 mg Metformin HCl (Glucophage) 500 mg PO BID [facility] Last Admin: 06/07/18 17:13 Dose: 500 mg Mupirocin (Bactroban Ointment) 0 gm TOP BID [facility] Last Admin: 06/07/18 17:14 Dose: 1 applic Pantoprazole Sodium (Protonix Ec Tab) 40 mg PO 0600 [facility] Last Admin: 06/08/18 05:26 Dose: 40 mg Thiamine HCl (Vitamin B1 Tab) 100 mg PO DAILY [facility] Last Admin: 06/07/18 09:19 Dose: 100 mg - Labs Labs: 06/07/18 06:00 06/07/18 06:00 PT 12.5 SECONDS (9.4-12.5) 12/09/17 10:00 INR 1.09 (0.93-1.08) H 12/09/17 10:00 APTT 28.3 Seconds (25.1-36.5) 11/30/17 05:30 - Constitutional Appears: Non-toxic, Chronically Ill - Head Exam Head Exam: NORMAL INSPECTION - Respiratory Exam Respiratory Exam: Decreased Breath Sounds - Cardiovascular Exam Cardiovascular Exam: +S1, +S2 - GI/Abdominal Exam GI & Abdominal Exam: Soft. absent: Tenderness Assessment and Plan - Assessment and Plan (Free Text) Plan: Assessment S/P systemic inflammatory response syndrome, with no evidence of sepsis or infection, resolved S/P sepsis due to strep viridans and CoNS bacteremia from right gluteal and back cellulitis liver masses noted on ultrasound S/P multifocal HCAP on top of Influenza A infection S/P Sammie infection of sacral area as well peripheral vascular disease Plan continue to monitor clinically off antibiotics since he is at risk for hsopital- acquired infections - most recent repeat blood cx are negative, PCT was normal, urine culture showed contamination liver masses noted on ultrasound abdomen - plan as per medical team
[2018-06-09] MEDS: Pantoprazole 40 mg EC Tab PO SCH (05:39)
[2018-06-09] MEDS: Insulin Lispro (humaLOG) LOW Coverage SC SCH ×4 (07:50→21:46)
--- NOTE | 2018-06-09 08:29 | CP.PCM.PN ---
<Kavitha Morin - Last Filed: 06/09/18 08:28> Subjective - Date & Time of Evaluation Date of Evaluation: 06/09/18 Time of Evaluation: 08:28 - Subjective Subjective: Podiatry Progress Note for Dr. Davis 58 y/o male seen and evaluated at bedside for right anterior ankle ulceration and left ankle abrasion. Patient is resting comfortably in bed and in NAD at time of visit. Denies any acute overnight events or new pedal complaints. Objective - Vital Signs/Intake and Output Vital Signs (last 24 hours): Temp Pulse Resp BP Pulse Ox 98.2 F 79 20 106/70 94 L 06/09/18 08:16 06/09/18 08:16 06/09/18 08:16 06/09/18 08:16 06/09/18 08:16 - Medications Medications: Current Medications Aspirin (Aspirin Chewable) 81 mg PO DAILY [facility] Last Admin: 06/08/18 10:09 Dose: 81 mg Atorvastatin Calcium (Lipitor) 20 mg PO DIN [facility] Last Admin: 06/08/18 19:19 Dose: 20 mg Citalopram Hydrobromide (Celexa) 10 mg PO DAILY [facility] Last Admin: 06/08/18 10:09 Dose: 10 mg Collagenase (Santyl) 0 gm TOP DAILY [facility] Last Admin: 06/08/18 10:11 Dose: Not Given Ferrous Sulfate (Feosol Liq) 300 mg PO BID [facility] Last Admin: 06/08/18 17:43 Dose: Not Given Insulin Human Lispro (Humalog Low) 0 units [facility] PRN Reason: Protocol Last Admin: 06/09/18 07:50 Dose: Not Given Lisinopril (Zestril) 10 mg PO DAILY [facility] Last Admin: 06/08/18 10:09 Dose: 10 mg Metformin HCl (Glucophage) 500 mg PO BID [facility] Last Admin: 06/08/18 19:19 Dose: 500 mg Mupirocin (Bactroban Ointment) 0 gm TOP BID [facility] Last Admin: 06/08/18 17:43 Dose: Not Given Pantoprazole Sodium (Protonix Ec Tab) 40 mg PO 0600 [facility] Last Admin: 06/09/18 05:39 Dose: 40 mg Thiamine HCl (Vitamin B1 Tab) 100 mg PO DAILY [facility] Last Admin: 06/08/18 10:09 Dose: 100 mg - Labs Labs: 06/07/18 06:00 06/07/18 06:00 PT 12.5 SECONDS (9.4-12.5) 12/09/17 10:00 INR 1.09 (0.93-1.08) H 12/09/17 10:00 APTT 28.3 Seconds (25.1-36.5) 11/30/17 05:30 - Constitutional Appears: Well, Non-toxic, No Acute Distress - Extremities Exam Additional comments: B/L Lower extremity exam: VASC: DP and PT faintly palpable b/l, CFT delayed > 3 seconds x 10 digits, temperature gradient cool to cool, no edema noted to the lower extremities NEURO: Epicritic and protective sensation grossly intact b/l DERM: Ulceration noted to the anterior aspect of right ankle at the level of the ankle joint measuring approximately 2 cm x 1 cm x 0.1 cm, wound is mainly fibro-grannular. Minimal periwound erythema noted. No streaking, no drainage, no tunneling, no abscess, no odor or drainage, no fluctuance noted, no other clinical signs of infection. No probe to bone. Abrasion noted to left anterior ankle, No clinical signs of infection or break in skin appreciated ORTHO: no pain with palpation to the entire lower extremity, no calf pain or tenderness appreciated, unable to assess MMT secondary to patient's cooperation - Neurological Exam Neurological Exam: Alert, Awake, Oriented x3 - Psychiatric Exam Psychiatric exam: Normal Affect, Normal Mood Assessment and Plan - Assessment and Plan (Free Text) Assessment: 58 y/o male seen at bedside for right anterior ankle ulceration and left ankle abrasion Plan: Patient seen and evaluated at bedside Discussed with attending Dr. Davis Chart, labs and vitals reviewed Afebrile, absent leukocytosis Bilateral ankles dressed with bactroban, optifoam No plan for surgical intervention at this time Stable from podiatry standpoint Podiatry will continue to follow while patient in house <Raciel Davis - Last Filed: 06/09/18 09:42> Objective - Vital Signs/Intake and Output Vital Signs (last 24 hours): Temp Pulse Resp BP Pulse Ox 98.2 F 79 20 106/70 94 L 06/09/18 08:16 06/09/18 08:16 06/09/18 08:16 06/09/18 08:16 06/09/18 08:16 - Medications Medications: Current Medications Aspirin (Aspirin Chewable) 81 mg PO DAILY [facility] Last Admin: 06/08/18 10:09 Dose: 81 mg Atorvastatin Calcium (Lipitor) 20 mg PO DIN [facility] Last Admin: 06/08/18 19:19 Dose: 20 mg Citalopram Hydrobromide (Celexa) 10 mg PO DAILY [facility] Last Admin: 06/08/18 10:09 Dose: 10 mg Collagenase (Santyl) 0 gm TOP DAILY [facility] Last Admin: 06/08/18 10:11 Dose: Not Given Ferrous Sulfate (Feosol Liq) 300 mg PO BID [facility] Last Admin: 06/08/18 17:43 Dose: Not Given Insulin Human Lispro (Humalog Low) 0 units [facility] PRN Reason: Protocol Last Admin: 06/09/18 07:50 Dose: Not Given Lisinopril (Zestril) 10 mg PO DAILY [facility] Last Admin: 06/08/18 10:09 Dose: 10 mg Metformin HCl (Glucophage) 500 mg PO BID [facility] Last Admin: 06/08/18 19:19 Dose: 500 mg Mupirocin (Bactroban Ointment) 0 gm TOP BID [facility] Last Admin: 06/08/18 17:43 Dose: Not Given Pantoprazole Sodium (Protonix Ec Tab) 40 mg PO 0600 [facility] Last Admin: 06/09/18 05:39 Dose: 40 mg Thiamine HCl (Vitamin B1 Tab) 100 mg PO DAILY [facility] Last Admin: 06/08/18 10:09 Dose: 100 mg - Labs Labs: 06/07/18 06:00 06/07/18 06:00 PT 12.5 SECONDS (9.4-12.5) 12/09/17 10:00 INR 1.09 (0.93-1.08) H 12/09/17 10:00 APTT 28.3 Seconds (25.1-36.5) 11/30/17 05:30 Attending/Attestation - Attestation I have personally seen and examined this patient.: Yes I have fully participated in the care of the patient.: Yes I have reviewed all pertinent clinical information, including history, physical exam and plan: Yes
[2018-06-09] MEDS: Collagenase 250 Units/gm Ointment(30 gm) TOP SCH (09:59)
[2018-06-09] MEDS: Ferrous Sulfate 300 mg/5 mL Liq UD PO SCH ×2 (10:00→17:06)
[2018-06-09] MEDS: Mupirocin 2% Ointment 15 GM TUBE TOP SCH ×2 (10:00→17:07)
--- NOTE | 2018-06-09 10:54 | CP.PCM.PN ---
<Mariano Morin - Last Filed: 06/09/18 23:51> Subjective - Date & Time of Evaluation Date of Evaluation: 06/09/18 Time of Evaluation: 10:53 - Subjective Subjective: Mariano Morin DO - PGY1 Internal Medicine Nurse First Assist - Hospital Progress Note Seen and examined at bedside this AM. No overnight issues, no acute complaints. 12 system ROS negative. Patient is at baseline. Objective - Vital Signs/Intake and Output Vital Signs (last 24 hours): Temp Pulse Resp BP Pulse Ox 98.2 F 79 20 106/70 94 L 06/09/18 08:16 06/09/18 10:00 06/09/18 08:16 06/09/18 10:00 06/09/18 08:16 - Medications Medications: Current Medications Aspirin (Aspirin Chewable) 81 mg PO DAILY [facility] Last Admin: 06/09/18 09:59 Dose: 81 mg Atorvastatin Calcium (Lipitor) 20 mg PO DIN [facility] Last Admin: 06/08/18 19:19 Dose: 20 mg Citalopram Hydrobromide (Celexa) 10 mg PO DAILY [facility] Last Admin: 06/09/18 09:59 Dose: 10 mg Collagenase (Santyl) 0 gm TOP DAILY [facility] Last Admin: 06/09/18 09:59 Dose: Not Given Ferrous Sulfate (Feosol Liq) 300 mg PO BID [facility] Last Admin: 06/09/18 10:00 Dose: 300 mg Insulin Human Lispro (Humalog Low) 0 units [facility] PRN Reason: Protocol Last Admin: 06/09/18 07:50 Dose: Not Given Lisinopril (Zestril) 10 mg PO DAILY [facility] Last Admin: 06/09/18 10:00 Dose: 10 mg Metformin HCl (Glucophage) 500 mg PO BID [facility] Last Admin: 06/09/18 09:59 Dose: 500 mg Mupirocin (Bactroban Ointment) 0 gm TOP BID [facility] Last Admin: 06/09/18 10:00 Dose: Not Given Pantoprazole Sodium (Protonix Ec Tab) 40 mg PO 0600 [facility] Last Admin: 06/09/18 05:39 Dose: 40 mg Thiamine HCl (Vitamin B1 Tab) 100 mg PO DAILY [facility] Last Admin: 06/09/18 09:59 Dose: 100 mg - Labs Labs: 06/07/18 06:00 06/07/18 06:00 PT 12.5 SECONDS (9.4-12.5) 12/09/17 10:00 INR 1.09 (0.93-1.08) H 12/09/17 10:00 APTT 28.3 Seconds (25.1-36.5) 11/30/17 05:30 Physical Exam - Constitutional Appears: Sitting upright in bed, no issues, comfortable, - Head Exam Head Exam: ATRAUMATIC, NORMAL INSPECTION, NORMOCEPHALIC - Eye Exam Eye Exam: EOMI, Normal appearance, PERRL - ENT Exam ENT Exam: Mucous Membranes Moist, Normal Oropharynx - Neck Exam Neck Exam: Full ROM, Normal Inspection - Respiratory Exam Respiratory Exam: Clear to Ausculation Bilateral, NORMAL BREATHING PATTERN, no rales, wheezes or rhonchi - Cardiovascular Exam Cardiovascular Exam: REGULAR RHYTHM, +S1, +S2 - GI/Abdominal Exam GI & Abdominal Exam: Soft, Normal Bowel Sounds, Nontender to palpation - Extremities Exam Extremities Exam: Normal Capillary Refill, Normal Inspection Additional comments: Both L and R foot w/ optifoam bandages on at this time. - Neurological Exam Neurological Exam: Alert, Awake Additional comments: Oriented x2 - Psychiatric Exam Psychiatric exam: No change in affect from day prior; still with flat affect; short one word answers, Minimally conversant - Skin Skin Exam: Dry, Intact, Warm Assessment and Plan - Assessment and Plan (Free Text) Assessment: 57 year old male unknown PMHx admitted on 11/29/17 for AMS, right hip cellulitis , multifocal pneumonia, influenza A, strep viridians bacteremia with findings of stroke on MRI - acute vs. 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 Patient was treated for bacteremia with IV abx. Guardianship establishment pending court date; pending for 06/30/2018 The patient remains to be at his medical and mental baseline at this time. A list of his medical problems and active management can be found below: Plan: Anemia: H/H slowly downtrending over hospitalization; patient has had + heme occult test as well as known colonic polyp Most likely Fe+ deficiency in nature Patient with a microcytic anemia Iron level low TIBC wnl Retic count pending Started ferrous sulfate PO BID 05/26 Continue monitoring for constipation given new onset iron supplement Altered mental status At baseline this AM Cont. delirium precautions PT -patient refusing to participate Cont ASA 81 QD / LIPITOR 20 QD Dorsal Right Foot Ulcer Bandaged. Non purulent. Podiatry recommendations appreciated Wound care following On [facility] No antibiotics warranted at this time per ID Coag negative Staphylococcus bacteremia - resolved Last bld clx negative 12/04/17 with completion of 6 week course of antibiotics Monitor WBC, ESR, CRP weekly Echocardiogram unable to rule out vegetations, family is unavailable for consent for TAHIR Colonic mass CT Abd/Pelvis showing colonic mass and hepatic lesions GI consulted: follow recs Flex sig/colonoscopy refused by patient Family unable to be contacted for consent Diabetes mellitus type 2 Cont ISS low Cont Metformin 500mg BID Cont accuchecks Carb consistent diet HTN BP Stable, continue to monitor Cont Lisinopril 10 QD Pressures are currently well controlled without Amlodipine 10 mg PO QD Can resume if pressures increase Leukocytosis - RESOLVED WBC elevated 05/17 Patient srinivasan cultured Blood cx negative x2 after 48H Urine cx w/ multiple species ML contaminated Abd U/S - 7mm common bile duct dilatation and gallstones; Hepatic lesions measuring up to 4.9cm and 3.8 cm; compared to prev abd U/S from 12/05 lesions measured 4.1cm and 3.1cm No RUQ tenderness appreciated on exam; ID following, appreciate reccs Affective disorder Cont Celexa 10mg PO Daily Constipation Colace 100mg BID Miralax 17gm BID Discontinued Lactulose Hx ETOH Abuse Cont Thiamine Cont Folic Acid Cont Multivitamin DVT Prophylaxis: SCDs Dispo: Patient continues to display a lack of decision making capacity: Guardianship status yet to be determined; court date is tentative for 2017. Patient is medically optimized at this time. Pt. seen, examined, and discussed with attending physician Dr. April Morin DO PGY1 Internal Medicine Nurse First Assist - Pager [phone] <Sixto Galo - Last Filed: 06/10/18 07:09> Objective - Vital Signs/Intake and Output Vital Signs (last 24 hours): Temp Pulse Resp BP Pulse Ox 97.5 F L 84 18 116/74 96 06/10/18 06:44 06/10/18 06:44 06/10/18 06:44 06/10/18 06:44 06/10/18 06:44 Intake and Output: 06/10/18 06/10/18 06:59 18:59 Intake Total 180 Balance 180 - Medications Medications: Current Medications Aspirin (Aspirin Chewable) 81 mg PO DAILY [facility] Last Admin: 06/09/18 09:59 Dose: 81 mg Atorvastatin Calcium (Lipitor) 20 mg PO DIN [facility] Last Admin: 06/09/18 17:06 Dose: 20 mg Citalopram Hydrobromide (Celexa) 10 mg PO DAILY [facility] Last Admin: 06/09/18 09:59 Dose: 10 mg Collagenase (Santyl) 0 gm TOP DAILY [facility] Last Admin: 06/09/18 09:59 Dose: Not Given Ferrous Sulfate (Feosol Liq) 300 mg PO BID [facility] Last Admin: 06/09/18 17:06 Dose: 300 mg Insulin Human Lispro (Humalog Low) 0 units [facility] PRN Reason: Protocol Last Admin: 06/09/18 21:46 Dose: Not Given Lisinopril (Zestril) 10 mg PO DAILY [facility] Last Admin: 06/09/18 10:00 Dose: 10 mg Metformin HCl (Glucophage) 500 mg PO BID [facility] Last Admin: 06/09/18 17:06 Dose: 500 mg Mupirocin (Bactroban Ointment) 0 gm TOP BID [facility] Last Admin: 06/09/18 17:07 Dose: 1 applic Pantoprazole Sodium (Protonix Ec Tab) 40 mg PO 0600 [facility] Last Admin: 06/10/18 05:46 Dose: 40 mg Thiamine HCl (Vitamin B1 Tab) 100 mg PO DAILY [facility] Last Admin: 06/09/18 09:59 Dose: 100 mg - Labs Labs: 06/07/18 06:00 06/07/18 06:00 PT 12.5 SECONDS (9.4-12.5) 12/09/17 10:00 INR 1.09 (0.93-1.08) H 12/09/17 10:00 APTT 28.3 Seconds (25.1-36.5) 11/30/17 05:30 Attending/Attestation - Attestation I have personally seen and examined this patient.: Yes I have fully participated in the care of the patient.: Yes I have reviewed all pertinent clinical information, including history, physical exam and plan: Yes Notes (Text): 06/09/18 57 year old male who was admitted with altered mental status. He was found to have bacteremia, cellulitis and pneumonia for which he has completed antibiotics. He also had CVA. He is on aspirin and statin. His mental status is at his baseline. Psychiatry follow up was appreciated today. He is comfortable without complaints. Podiatry is following for foot ulceration. He is pending placement/guardianship. Court date is 06/30/18. Sixto Galo MD Hospitalist.
--- NOTE | 2018-06-09 16:02 | CP.PCM.PN ---
Subjective - Date & Time of Evaluation Date of Evaluation: 06/09/18 Time of Evaluation: 11:00 - Subjective Subjective: Comfortable, no fevers. Objective - Vital Signs/Intake and Output Vital Signs (last 24 hours): Temp Pulse Resp BP Pulse Ox 98.2 F 79 20 106/70 94 L 06/09/18 08:16 06/09/18 08:16 06/09/18 08:16 06/09/18 08:16 06/09/18 08:16 - Medications Medications: Current Medications Aspirin (Aspirin Chewable) 81 mg PO DAILY [facility] Last Admin: 06/08/18 10:09 Dose: 81 mg Atorvastatin Calcium (Lipitor) 20 mg PO DIN [facility] Last Admin: 06/08/18 19:19 Dose: 20 mg Citalopram Hydrobromide (Celexa) 10 mg PO DAILY [facility] Last Admin: 06/08/18 10:09 Dose: 10 mg Collagenase (Santyl) 0 gm TOP DAILY [facility] Last Admin: 06/08/18 10:11 Dose: Not Given Ferrous Sulfate (Feosol Liq) 300 mg PO BID [facility] Last Admin: 06/08/18 17:43 Dose: Not Given Insulin Human Lispro (Humalog Low) 0 units [facility] PRN Reason: Protocol Last Admin: 06/09/18 07:50 Dose: Not Given Lisinopril (Zestril) 10 mg PO DAILY [facility] Last Admin: 06/08/18 10:09 Dose: 10 mg Metformin HCl (Glucophage) 500 mg PO BID [facility] Last Admin: 06/08/18 19:19 Dose: 500 mg Mupirocin (Bactroban Ointment) 0 gm TOP BID [facility] Last Admin: 06/08/18 17:43 Dose: Not Given Pantoprazole Sodium (Protonix Ec Tab) 40 mg PO 0600 [facility] Last Admin: 06/09/18 05:39 Dose: 40 mg Thiamine HCl (Vitamin B1 Tab) 100 mg PO DAILY [facility] Last Admin: 06/08/18 10:09 Dose: 100 mg - Labs Labs: 06/07/18 06:00 06/07/18 06:00 PT 12.5 SECONDS (9.4-12.5) 12/09/17 10:00 INR 1.09 (0.93-1.08) H 12/09/17 10:00 APTT 28.3 Seconds (25.1-36.5) 11/30/17 05:30 - Constitutional Appears: Chronically Ill - Head Exam Head Exam: NORMAL INSPECTION - Respiratory Exam Respiratory Exam: Decreased Breath Sounds - Cardiovascular Exam Cardiovascular Exam: +S1, +S2 - GI/Abdominal Exam GI & Abdominal Exam: Soft. absent: Tenderness Assessment and Plan - Assessment and Plan (Free Text) Plan: Assessment S/P systemic inflammatory response syndrome, with no evidence of sepsis or infection, resolved S/P sepsis due to strep viridans and CoNS bacteremia from right gluteal and back cellulitis liver masses noted on ultrasound S/P multifocal HCAP on top of Influenza A infection S/P Sammie infection of sacral area as well peripheral vascular disease Plan continue to monitor clinically off antibiotics since he is at risk for healthcare-associated infections - most recent repeat blood cx are negative, PCT was normal, urine culture showed contamination liver masses noted on ultrasound abdomen - plan as per medical team
--- NOTE | 2018-06-09 19:34 | PN ---
Copied To: Mary Swartz MD Attending MD: Mary Swartz MD DATE: 06/09/2018 SUBJECTIVE: In short, the patient is a 57-year-old male with not known previous psychiatric history. The patient was admitted to the medical site in 11/2017. Medical team is obtaining guardianship for this patient. Psych evaluated the patient on multiple occasions. Medical team requested follow up on the patient. The patient was seen and examined today. The patient presented to be confused. No meaningful dialog possible. The patient presented with psychomotor retardation and not participating in interview. Going back to the admission symptoms, the patient was found in his apartment covered with feces and was absolutely confused. Initially, the patient's brother was in the Emergency Room but brother disappeared and never returned any phone calls from the hospital. From the medical history, the patient had treated for multiple medical issues including right hip cellulitis, multifactorial pneumonia, influenza A, Streptococcus viridans bacteremia. MRI showed stroke, acute versus subacute. Also, the patient has a lot of chronic medical issues including diabetes, hypertension, hypokalemia. Please see medical team notes for more detailed information. Collaterals were obtained from the nurse as the patient does not have any agitation or aggression. No behavioral disturbances, but the patient is oriented only x1 in himself. VITAL SIGNS: Reviewed. Temperature 98, pulse is 80, blood pressure 131/84, respirations 26, and oxygen saturation is 98. MEDICATIONS: Reviewed. The patient is on aspirin, Lipitor, Celexa 10 mg daily, collagenase, Feosol, Humalog, Zestril, Glucophage, Bactroban, Protonix, vitamin B1. Labs reviewed. Most recent was from yesterday. Hemoglobin and hematocrit 10 and 31.8. Microbiology reviewed. Notes from the Infectious Disease as well as medical team also reviewed. As per Infectious Disease, the patient had inflammatory response syndrome. There is no evidence of sepsis or infection. The patient is off antibiotics. Liver mass noted on ultrasound of abdomen. Management as per medical team. MENTAL STATUS EXAMINATION: No meaningful conversation possible. The patient oriented only to himself. The patient had intermittent eye contact to no eye contact. Speech was mumbling and underproductive. No answers majority of the times. Affect was flat. This editorial writer was not able to evaluate psychosis, but the patient does not present to be psychotic. Insight and judgment seem to be severely impaired. Impulses are well controlled. 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 The patient has multiple medical issues including multifactorial pneumonia which resolved, right hip cellulitis which is resolved, acute versus subacute stroke, metastatic colorectal cancer, bacteremia which is resolved. PLAN: Based on present presentation, the patient obviously lacks capacity to make decision about his treatment as well as disposition plan. The patient was not able to understand the diagnosis, treatment options, potential benefits and risks off of medications. The patient has no family, who can help the patient to make decisions. The patient does not have insight and appreciation. The patient does not have any reasoning ability. The patient was not able to indicate his preferences. The patient lacks capacity to make any decisions for himself at present moment. Please reconsult as needed. This editorial writer will sign off. Should you have any questions, give me a call back. Thank you very much. Mary Swartz MD
[2018-06-10] MEDS: Pantoprazole 40 mg EC Tab PO SCH (05:46)
[2018-06-10] MEDS: Insulin Lispro (humaLOG) LOW Coverage SC SCH ×4 (07:39→22:00)
[2018-06-10] MEDS: Ferrous Sulfate 300 mg/5 mL Liq UD PO SCH ×2 (09:05→17:04)
[2018-06-10] MEDS: Mupirocin 2% Ointment 15 GM TUBE TOP SCH ×2 (09:06→17:05)
[2018-06-10] MEDS: Collagenase 250 Units/gm Ointment(30 gm) TOP SCH (09:06)
--- NOTE | 2018-06-10 15:02 | CP.PCM.PN ---
<Kavitha Morin - Last Filed: 06/10/18 15:01> Subjective - Date & Time of Evaluation Date of Evaluation: 06/10/18 Time of Evaluation: 15:01 - Subjective Subjective: Podiatry Progress Note for Dr. Davis 58 y/o male seen and evaluated at bedside for right anterior ankle ulceration and left ankle abrasion. Patient is resting comfortably in bed and in NAD at time of visit. Denies any acute overnight events or new pedal complaints. Objective - Vital Signs/Intake and Output Vital Signs (last 24 hours): Temp Pulse Resp BP Pulse Ox 97.5 F L 84 18 116/74 96 06/10/18 06:44 06/10/18 09:05 06/10/18 06:44 06/10/18 09:05 06/10/18 06:44 Intake and Output: 06/10/18 06/10/18 06:59 18:59 Intake Total 180 Balance 180 - Medications Medications: Current Medications Aspirin (Aspirin Chewable) 81 mg PO DAILY [facility] Last Admin: 06/10/18 09:05 Dose: 81 mg Atorvastatin Calcium (Lipitor) 20 mg PO DIN [facility] Last Admin: 06/09/18 17:06 Dose: 20 mg Citalopram Hydrobromide (Celexa) 10 mg PO DAILY [facility] Last Admin: 06/10/18 09:05 Dose: 10 mg Collagenase (Santyl) 0 gm TOP DAILY [facility] Last Admin: 06/10/18 09:06 Dose: 1 applic Ferrous Sulfate (Feosol Liq) 300 mg PO BID [facility] Last Admin: 06/10/18 09:05 Dose: 300 mg Insulin Human Lispro (Humalog Low) 0 units SC [facility] PRN Reason: Protocol Last Admin: 06/10/18 12:44 Dose: 1 units Lisinopril (Zestril) 10 mg PO DAILY [facility] Last Admin: 06/10/18 09:05 Dose: 10 mg Metformin HCl (Glucophage) 500 mg PO BID [facility] Last Admin: 06/10/18 09:05 Dose: 500 mg Mupirocin (Bactroban Ointment) 0 gm TOP BID [facility] Last Admin: 06/10/18 09:06 Dose: 1 applic Pantoprazole Sodium (Protonix Ec Tab) 40 mg PO 0600 [facility] Last Admin: 06/10/18 05:46 Dose: 40 mg Thiamine HCl (Vitamin B1 Tab) 100 mg PO DAILY [facility] Last Admin: 06/10/18 09:05 Dose: 100 mg - Labs Labs: 06/07/18 06:00 06/07/18 06:00 PT 12.5 SECONDS (9.4-12.5) 12/09/17 10:00 INR 1.09 (0.93-1.08) H 12/09/17 10:00 APTT 28.3 Seconds (25.1-36.5) 11/30/17 05:30 - Constitutional Appears: Well, Non-toxic, No Acute Distress - Extremities Exam Additional comments: B/L Lower extremity exam: VASC: DP and PT faintly palpable b/l, CFT delayed > 3 seconds x 10 digits, temperature gradient cool to cool, no edema noted to the lower extremities NEURO: Epicritic and protective sensation grossly intact b/l DERM: Ulceration noted to the anterior aspect of right ankle at the level of the ankle joint measuring approximately 2 cm x 1 cm x 0.1 cm, wound is mainly fibro-grannular. Minimal periwound erythema noted. No streaking, no drainage, no tunneling, no abscess, no odor or drainage, no fluctuance noted, no other clinical signs of infection. No probe to bone. Abrasion noted to left anterior ankle, No clinical signs of infection or break in skin appreciated ORTHO: no pain with palpation to the entire lower extremity, no calf pain or tenderness appreciated, unable to assess MMT secondary to patient's cooperation - Neurological Exam Neurological Exam: Alert, Awake, Oriented x3 - Psychiatric Exam Psychiatric exam: Normal Affect, Normal Mood Assessment and Plan - Assessment and Plan (Free Text) Assessment: 58 y/o male seen at bedside for right anterior ankle ulceration and left ankle abrasion Plan: Patient seen and evaluated at bedside Discussed with attending Dr. Davis Chart, labs and vitals reviewed Afebrile, absent leukocytosis Bilateral ankles dressed with bactroban, optifoam No plan for surgical intervention at this time Stable from podiatry standpoint Podiatry will continue to follow while patient in house <Raciel Davis - Last Filed: 06/10/18 15:34> Objective - Vital Signs/Intake and Output Vital Signs (last 24 hours): Temp Pulse Resp BP Pulse Ox 97.5 F L 84 18 116/74 96 06/10/18 06:44 06/10/18 09:05 06/10/18 06:44 06/10/18 09:05 06/10/18 06:44 Intake and Output: 06/10/18 06/10/18 06:59 18:59 Intake Total 180 Balance 180 - Medications Medications: Current Medications Aspirin (Aspirin Chewable) 81 mg PO DAILY [facility] Last Admin: 06/10/18 09:05 Dose: 81 mg Atorvastatin Calcium (Lipitor) 20 mg PO DIN [facility] Last Admin: 06/09/18 17:06 Dose: 20 mg Citalopram Hydrobromide (Celexa) 10 mg PO DAILY [facility] Last Admin: 06/10/18 09:05 Dose: 10 mg Collagenase (Santyl) 0 gm TOP DAILY [facility] Last Admin: 06/10/18 09:06 Dose: 1 applic Ferrous Sulfate (Feosol Liq) 300 mg PO BID [facility] Last Admin: 06/10/18 09:05 Dose: 300 mg Insulin Human Lispro (Humalog Low) 0 units SC [facility] PRN Reason: Protocol Last Admin: 06/10/18 12:44 Dose: 1 units Lisinopril (Zestril) 10 mg PO DAILY [facility] Last Admin: 06/10/18 09:05 Dose: 10 mg Metformin HCl (Glucophage) 500 mg PO BID [facility] Last Admin: 06/10/18 09:05 Dose: 500 mg Mupirocin (Bactroban Ointment) 0 gm TOP BID [facility] Last Admin: 06/10/18 09:06 Dose: 1 applic Pantoprazole Sodium (Protonix Ec Tab) 40 mg PO 0600 [facility] Last Admin: 06/10/18 05:46 Dose: 40 mg Thiamine HCl (Vitamin B1 Tab) 100 mg PO DAILY [facility] Last Admin: 06/10/18 09:05 Dose: 100 mg - Labs Labs: 06/07/18 06:00 06/07/18 06:00 PT 12.5 SECONDS (9.4-12.5) 12/09/17 10:00 INR 1.09 (0.93-1.08) H 12/09/17 10:00 APTT 28.3 Seconds (25.1-36.5) 11/30/17 05:30 Attending/Attestation - Attestation I have personally seen and examined this patient.: Yes I have fully participated in the care of the patient.: Yes I have reviewed all pertinent clinical information, including history, physical exam and plan: Yes
--- NOTE | 2018-06-10 22:36 | CP.PCM.PN ---
<Mariano Morin - Last Filed: 06/10/18 22:31> Subjective - Date & Time of Evaluation Date of Evaluation: 06/10/18 Time of Evaluation: 22:31 - Subjective Subjective: Mariano Morin DO PGY1 - Internal Medicine [facility] - Hospital Progress Note Patient was seen and evaluated at bedside this AM; He reported no complaints at time of evaluation; Nursing reported no issues ovenright. 12 system ROS was negative at time of evaluation The patient is currently at his baseline Objective - Vital Signs/Intake and Output Vital Signs (last 24 hours): Temp Pulse Resp BP Pulse Ox 98.2 F 88 19 100/60 95 06/10/18 16:21 06/10/18 16:21 06/10/18 16:21 06/10/18 16:21 06/10/18 16:21 Intake and Output: 06/10/18 06/11/18 18:59 06:59 Intake Total 1200 Balance 1200 - Medications Medications: Current Medications Aspirin (Aspirin Chewable) 81 mg PO DAILY [facility] Last Admin: 06/10/18 09:05 Dose: 81 mg Atorvastatin Calcium (Lipitor) 20 mg PO DIN [facility] Last Admin: 06/10/18 17:04 Dose: 20 mg Citalopram Hydrobromide (Celexa) 10 mg PO DAILY [facility] Last Admin: 06/10/18 09:05 Dose: 10 mg Collagenase (Santyl) 0 gm TOP DAILY [facility] Last Admin: 06/10/18 09:06 Dose: 1 applic Ferrous Sulfate (Feosol Liq) 300 mg PO BID [facility] Last Admin: 06/10/18 17:04 Dose: 300 mg Insulin Human Lispro (Humalog Low) 0 units SC [facility] PRN Reason: Protocol Last Admin: 06/10/18 16:46 Dose: Not Given Lisinopril (Zestril) 10 mg PO DAILY [facility] Last Admin: 06/10/18 09:05 Dose: 10 mg Metformin HCl (Glucophage) 500 mg PO BID [facility] Last Admin: 06/10/18 17:04 Dose: 500 mg Mupirocin (Bactroban Ointment) 0 gm TOP BID [facility] Last Admin: 06/10/18 17:05 Dose: 1 applic Pantoprazole Sodium (Protonix Ec Tab) 40 mg PO 0600 [facility] Last Admin: 06/10/18 05:46 Dose: 40 mg Thiamine HCl (Vitamin B1 Tab) 100 mg PO DAILY [facility] Last Admin: 06/10/18 09:05 Dose: 100 mg - Labs Labs: 06/07/18 06:00 06/07/18 06:00 PT 12.5 SECONDS (9.4-12.5) 12/09/17 10:00 INR 1.09 (0.93-1.08) H 12/09/17 10:00 APTT 28.3 Seconds (25.1-36.5) 11/30/17 05:30 Physical Exam - Constitutional Appears: Sitting upright in bed watchign TV, not in any distress - Head Exam Head Exam: Normocephalic, no trauma - Eye Exam Eye Exam: EOMI, pupils equal round and reactive to light - ENT Exam ENT Exam: Moist mucous membrane - Neck Exam Neck Exam: Normal inspection, no swelling or goiter, no carotid bruit appreciated - Respiratory Exam Respiratory Exam: Clear to auscultation in all lung hartley bilaterally no wheezes, rhonci, rales - Cardiovascular Exam Cardiovascular Exam: S1+ S2+ RRR no murmurs, no thrills - GI/Abdominal Exam GI & Abdominal Exam: Soft, Nondistended, Nontender, No murphys sign - Extremities Exam Extremities Exam: Normal Capillary Refill, Normal Inspection, 2+ Pulses in DP/ TP BL Additional comments: Both L and R foot w/ optifoam bandages on at this time. - Neurological Exam Neurological Exam: Alert, Awake Additional comments: Oriented x2 - Psychiatric Exam Psychiatric exam: Patient appears to be indifferent, flat affect, gives short one worded answers, does not appear to be agitated - Skin Skin Exam: Dry, Intact, Warm Assessment and Plan - Assessment and Plan (Free Text) Assessment: 57 year old male unknown PMHx admitted on 11/29/17 for AMS, right hip cellulitis , multifocal pneumonia, influenza A, strep viridians bacteremia with findings of stroke on MRI - acute vs. 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 Patient was treated for bacteremia with IV abx. Guardianship establishment pending court date; pending for 06/30/2018 The patient remains to be at his medical and mental baseline at this time. A list of his medical problems and active management can be found below: Plan: Anemia: H/H slowly downtrending over hospitalization; patient has had + heme occult test as well as known colonic polyp Most likely Fe+ deficiency in nature Patient with a microcytic anemia Iron level low TIBC wnl Retic count pending Started ferrous sulfate PO BID 05/26 Continue monitoring for constipation given new onset iron supplement Altered mental status At baseline this AM Cont. delirium precautions PT -patient refusing to participate Cont ASA 81 QD / LIPITOR 20 QD Dorsal Right Foot Ulcer Bandaged. Non purulent. Podiatry recommendations appreciated Wound care following [facility] No antibiotics warranted at this time per ID Coag negative Staphylococcus bacteremia - resolved Last bld clx negative 12/04/17 with completion of 6 week course of antibiotics Monitor WBC, ESR, CRP weekly Echocardiogram unable to rule out vegetations, family is unavailable for consent for [facility]AH[facility] Colonic mass CT Abd/Pelvis showing colonic mass and hepatic lesions GI consulted: follow recs Flex sig/colonoscopy refused by patient Family unable to be contacted for consent Diabetes mellitus type 2 Cont ISS low Cont Metformin 500mg BID Cont accuchecks Carb consistent diet HTN BP Stable, continue to monitor Cont Lisinopril 10 QD Pressures are currently well controlled without Amlodipine 10 mg PO QD Can resume if pressures increase Leukocytosis - RESOLVED WBC elevated 05/17 Patient srinivasan cultured Blood cx negative x2 after 48H Urine cx w/ multiple species ML contaminated Abd U/S - 7mm common bile duct dilatation and gallstones; Hepatic lesions measuring up to 4.9cm and 3.8 cm; compared to prev abd U/S from 12/05 lesions measured 4.1cm and 3.1cm No RUQ tenderness appreciated on exam; ID following, appreciate reccs Affective disorder Cont Celexa 10mg PO Daily Constipation Colace 100mg BID Miralax 17gm BID Discontinued Lactulose Hx ETOH Abuse Cont Thiamine Cont Folic Acid Cont Multivitamin DVT Prophylaxis: SCDs In summary, this a 57M w/ an unknown PMH and unknown mental baseline who was admitted on 11/29/2017 for Altered Mental Status. Patient was initially found to have an acute vs subacute stroke on MRI. On initial presentation patient was found to be oriented to person, but not time, or place. The patient was medically stabilized and treated in regards to his stroke. Despite medical optimization, the patient is still unable to display sort of decision making capacity at this time. The patient is evaluated daily in regards to his medical needs, and has had multiple psychiatric evaluations through his hospital course as well. Unfortunately, we have been unable to observe any change in his mental capacity over the past 6 months. He remains to have limited insight in regards to his situation at this time, and does not show any ability to care for himself. The patient's activities of daily living are severely limited, and if discharged will require daily care home nursing services in order to address his needs. He has been medically stabilized for quite some time, and has no medical necessity for an acute care facility. As per infectious disease, he is at a significant risk for healthcare-associated infections. Pt. seen, examined, and discussed with attending physician Dr. Iraj Morin DO PGY1 Internal Medicine [facility] - Pager [phone] <Sixto Galo - Last Filed: 06/11/18 06:52> Objective - Vital Signs/Intake and Output Vital Signs (last 24 hours): Temp Pulse Resp BP Pulse Ox 98.2 F 88 19 100/60 95 06/10/18 16:21 06/10/18 16:21 06/10/18 16:21 06/10/18 16:21 06/10/18 16:21 Intake and Output: 06/10/18 06/11/18 18:59 06:59 Intake Total 1200 Balance 1200 - Medications Medications: Current Medications Aspirin (Aspirin Chewable) 81 mg PO DAILY [facility] Last Admin: 06/10/18 09:05 Dose: 81 mg Atorvastatin Calcium (Lipitor) 20 mg PO DIN [facility] Last Admin: 06/10/18 17:04 Dose: 20 mg Citalopram Hydrobromide (Celexa) 10 mg PO DAILY [facility] Last Admin: 06/10/18 09:05 Dose: 10 mg Collagenase (Santyl) 0 gm TOP DAILY [facility] Last Admin: 06/10/18 09:06 Dose: 1 applic Ferrous Sulfate (Feosol Liq) 300 mg PO BID [facility] Last Admin: 06/10/18 17:04 Dose: 300 mg Insulin Human Lispro (Humalog Low) 0 units SC [facility] PRN Reason: Protocol Last Admin: 06/10/18 22:00 Dose: Not Given Lisinopril (Zestril) 10 mg PO DAILY [facility] Last Admin: 06/10/18 09:05 Dose: 10 mg Metformin HCl (Glucophage) 500 mg PO BID [facility] Last Admin: 06/10/18 17:04 Dose: 500 mg Mupirocin (Bactroban Ointment) 0 gm TOP BID [facility] Last Admin: 06/10/18 17:05 Dose: 1 applic Pantoprazole Sodium (Protonix Ec Tab) 40 mg PO 0600 [facility] Last Admin: 06/10/18 05:46 Dose: 40 mg Thiamine HCl (Vitamin B1 Tab) 100 mg PO DAILY [facility] Last Admin: 06/10/18 09:05 Dose: 100 mg - Labs Labs: 06/07/18 06:00 06/07/18 06:00 PT 12.5 SECONDS (9.4-12.5) 12/09/17 10:00 INR 1.09 (0.93-1.08) H 12/09/17 10:00 APTT 28.3 Seconds (25.1-36.5) 11/30/17 05:30 Attending/Attestation - Attestation I have personally seen and examined this patient.: Yes I have fully participated in the care of the patient.: Yes I have reviewed all pertinent clinical information, including history, physical exam and plan: Yes Notes (Text): 06/10/18 57 year old male who was admitted with altered mental status. He was found to have bacteremia, cellulitis and pneumonia for which he has completed antibiotics. He also had CVA. He is on aspirin and statin. His mental status is at his baseline. He denies any new complaints this morning. Podiatry is following for foot ulceration. He is pending placement/guardianship. Court date is 06/30/18. Sixto Galo MD Hospitalist.
--- NOTE | 2018-06-10 23:09 | CP.PCM.PN ---
Subjective - Date & Time of Evaluation Date of Evaluation: 06/10/18 Time of Evaluation: 11:30 - Subjective Subjective: Comfortable in bed, no fevers. Objective - Vital Signs/Intake and Output Vital Signs (last 24 hours): Temp Pulse Resp BP Pulse Ox 98.2 F 79 20 106/70 94 L 06/09/18 08:16 06/09/18 10:00 06/09/18 08:16 06/09/18 10:00 06/09/18 08:16 - Medications Medications: Current Medications Aspirin (Aspirin Chewable) 81 mg PO DAILY [facility] Last Admin: 06/09/18 09:59 Dose: 81 mg Atorvastatin Calcium (Lipitor) 20 mg PO DIN [facility] Last Admin: 06/08/18 19:19 Dose: 20 mg Citalopram Hydrobromide (Celexa) 10 mg PO DAILY [facility] Last Admin: 06/09/18 09:59 Dose: 10 mg Collagenase (Santyl) 0 gm TOP DAILY [facility] Last Admin: 06/09/18 09:59 Dose: Not Given Ferrous Sulfate (Feosol Liq) 300 mg PO BID [facility] Last Admin: 06/09/18 10:00 Dose: 300 mg Insulin Human Lispro (Humalog Low) 0 units SC [facility] PRN Reason: Protocol Last Admin: 06/09/18 11:43 Dose: Not Given Lisinopril (Zestril) 10 mg PO DAILY [facility] Last Admin: 06/09/18 10:00 Dose: 10 mg Metformin HCl (Glucophage) 500 mg PO BID [facility] Last Admin: 06/09/18 09:59 Dose: 500 mg Mupirocin (Bactroban Ointment) 0 gm TOP BID [facility] Last Admin: 06/09/18 10:00 Dose: Not Given Pantoprazole Sodium (Protonix Ec Tab) 40 mg PO 0600 [facility] Last Admin: 06/09/18 05:39 Dose: 40 mg Thiamine HCl (Vitamin B1 Tab) 100 mg PO DAILY [facility] Last Admin: 06/09/18 09:59 Dose: 100 mg - Labs Labs: 06/07/18 06:00 06/07/18 06:00 PT 12.5 SECONDS (9.4-12.5) 12/09/17 10:00 INR 1.09 (0.93-1.08) H 12/09/17 10:00 APTT 28.3 Seconds (25.1-36.5) 11/30/17 05:30 - Constitutional Appears: No Acute Distress, Chronically Ill - Head Exam Head Exam: NORMAL INSPECTION - Respiratory Exam Respiratory Exam: Decreased Breath Sounds - Cardiovascular Exam Cardiovascular Exam: +S1, +S2 - GI/Abdominal Exam GI & Abdominal Exam: Soft. absent: Tenderness Assessment and Plan - Assessment and Plan (Free Text) Plan: Assessment S/P systemic inflammatory response syndrome, with no evidence of sepsis or infection, resolved S/P sepsis due to strep viridans and CoNS bacteremia from right gluteal and back cellulitis liver masses noted on ultrasound S/P multifocal HCAP on top of Influenza A infection S/P Sammie infection of sacral area as well peripheral vascular disease Plan continue to monitor clinically off antibiotics since he is at risk for nosocomial infections - most recent repeat blood cx are negative, PCT was normal , urine culture showed contamination liver masses noted on ultrasound abdomen - plan as per medical team
[2018-06-11] MEDS: Insulin Lispro (humaLOG) LOW Coverage SC SCH ×4 (08:19→21:07)
[2018-06-11] MEDS: Pantoprazole 40 mg EC Tab PO SCH (10:00)
[2018-06-11] MEDS: Ferrous Sulfate 300 mg/5 mL Liq UD PO SCH ×2 (10:01→17:27)
[2018-06-11] MEDS: Collagenase 250 Units/gm Ointment(30 gm) TOP SCH (10:01)
[2018-06-11] MEDS: Mupirocin 2% Ointment 15 GM TUBE TOP SCH ×2 (10:02→17:28)
--- NOTE | 2018-06-11 12:58 | CP.PCM.PN ---
<Michael Carver - Last Filed: 06/11/18 12:48> Subjective - Date & Time of Evaluation Date of Evaluation: 06/11/18 Time of Evaluation: 12:49 - Subjective Subjective: Podiatry Progress Note for attending Dr. Davis 58 y/o male patient seen and evaluated at bedside for right anterior ankle ulceration and left ankle abrasion. Patient is resting comfortably in bed and in NAD at time of visit. Patient is AAO X 3. Patient denies any pain in her feet. Patient denies any overnight acute events. Patient denies any other pedal complaint. Patient denies any over night F/N/V/C or SOB. Objective - Vital Signs/Intake and Output Vital Signs (last 24 hours): Temp Pulse Resp BP Pulse Ox 97.3 F L 85 20 109/72 96 06/11/18 07:53 06/11/18 10:00 06/11/18 07:53 06/11/18 10:00 06/11/18 07:53 - Medications Medications: Current Medications Aspirin (Aspirin Chewable) 81 mg PO DAILY [facility] Last Admin: 06/11/18 10:00 Dose: 81 mg Atorvastatin Calcium (Lipitor) 20 mg PO DIN [facility] Last Admin: 06/10/18 17:04 Dose: 20 mg Citalopram Hydrobromide (Celexa) 10 mg PO DAILY [facility] Last Admin: 06/11/18 10:00 Dose: 10 mg Collagenase (Santyl) 0 gm TOP DAILY [facility] Last Admin: 06/11/18 10:01 Dose: 1 applic Ferrous Sulfate (Feosol Liq) 300 mg PO BID [facility] Last Admin: 06/11/18 10:01 Dose: Not Given Insulin Human Lispro (Humalog Low) 0 units SC [facility] PRN Reason: Protocol Last Admin: 06/11/18 11:42 Dose: 1 units Lisinopril (Zestril) 10 mg PO DAILY [facility] Last Admin: 06/11/18 10:00 Dose: 10 mg Metformin HCl (Glucophage) 500 mg PO BID [facility] Last Admin: 06/11/18 10:00 Dose: 500 mg Mupirocin (Bactroban Ointment) 0 gm TOP BID [facility] Last Admin: 06/11/18 10:02 Dose: 1 applic Pantoprazole Sodium (Protonix Ec Tab) 40 mg PO 0600 [facility] Last Admin: 06/11/18 10:00 Dose: 40 mg Thiamine HCl (Vitamin B1 Tab) 100 mg PO DAILY [facility] Last Admin: 06/11/18 10:01 Dose: 100 mg - Labs Labs: 06/07/18 06:00 06/07/18 06:00 PT 12.5 SECONDS (9.4-12.5) 12/09/17 10:00 INR 1.09 (0.93-1.08) H 12/09/17 10:00 APTT 28.3 Seconds (25.1-36.5) 11/30/17 05:30 - Constitutional Appears: Well, Non-toxic, No Acute Distress - Head Exam Head Exam: ATRAUMATIC, NORMOCEPHALIC - Extremities Exam Additional comments: B/L Lower extremity exam: Vasc: DP/PT faintly palpable b/l, Cap refill > 3 seconds in all digits, temperature gradient cool to cool, no edema noted to the lower extremities Neuro: Gross and protective sensations are grossly intact b/l Derm: Ulceration noted to the anterior aspect of right ankle at the level of the ankle joint measuring approximately 2 cm x 1 cm x 0.1 cm, wound is mainly fibro-grannular. Minimal periwound erythema noted. No streaking, no drainage, no tunneling, no abscess, no odor or drainage, no fluctuance noted, no other clinical signs of infection. No probe to bone. Abrasion noted to left anterior ankle, No clinical signs of infection or break in skin appreciated MSK: no pain with palpation to the entire lower extremity, no calf pain or tenderness appreciated. - Neurological Exam Neurological Exam: Alert, Awake, Oriented x3 - Psychiatric Exam Psychiatric exam: Normal Affect, Normal Mood Assessment and Plan - Assessment and Plan (Free Text) Assessment: 58 y/o male seen at bedside for right anterior ankle ulceration and left ankle abrasion Plan: Patient seen and evaluated at bedside with attending Dr. Davis Discussed the plan with attending Dr. Davis Chart, labs and vitals reviewed; Afebrile, absent leukocytosis Left ankle dressed with bactroban, optifoam, Right ankle dressed with Optifoam No plan for surgical intervention at this time Right ankle is almost healed Podiatry sign out from local wound care of the left ankle. continue local wound care of the right ankle. Stable from podiatry standpoint Podiatry will continue to follow while patient in house. <Raciel Davis - Last Filed: 06/12/18 10:35> Objective - Vital Signs/Intake and Output Vital Signs (last 24 hours): Temp Pulse Resp BP Pulse Ox 97.8 F 91 H 20 104/64 96 06/12/18 07:58 06/12/18 10:31 06/12/18 07:58 06/12/18 07:58 06/12/18 07:58 Intake and Output: 06/12/18 06/12/18 06:59 18:59 Intake Total 120 Balance 120 - Medications Medications: Current Medications Aspirin (Aspirin Chewable) 81 mg PO DAILY [facility] Last Admin: 06/12/18 10:29 Dose: 81 mg Atorvastatin Calcium (Lipitor) 20 mg PO DIN [facility] Last Admin: 06/11/18 17:27 Dose: 20 mg Citalopram Hydrobromide (Celexa) 10 mg PO DAILY [facility] Last Admin: 06/12/18 10:29 Dose: 10 mg Collagenase (Santyl) 0 gm TOP DAILY [facility] Last Admin: 06/12/18 10:30 Dose: 1 applic Ferrous Sulfate (Feosol Liq) 300 mg PO BID [facility] Last Admin: 06/12/18 10:29 Dose: Not Given Insulin Human Lispro (Humalog Low) 0 units SC [facility] TO [facility] PRN Reason: Protocol Last Admin: 06/12/18 08:11 Dose: Not Given Lisinopril (Zestril) 10 mg PO DAILY [facility] Last Admin: 06/12/18 10:31 Dose: 10 mg Metformin HCl (Glucophage) 500 mg PO BID [facility] Last Admin: 06/12/18 10:29 Dose: 500 mg Mupirocin (Bactroban Ointment) 0 gm TOP BID [facility] Last Admin: 06/12/18 10:29 Dose: 1 applic Pantoprazole Sodium (Protonix Ec Tab) 40 mg PO 0600 [facility] Last Admin: 06/12/18 05:00 Dose: 40 mg Thiamine HCl (Vitamin B1 Tab) 100 mg PO DAILY [facility] Last Admin: 06/12/18 10:30 Dose: 100 mg - Labs Labs: 06/07/18 06:00 06/07/18 06:00 PT 12.5 SECONDS (9.4-12.5) 12/09/17 10:00 INR 1.09 (0.93-1.08) H 12/09/17 10:00 APTT 28.3 Seconds (25.1-36.5) 11/30/17 05:30 Attending/Attestation - Attestation I have personally seen and examined this patient.: Yes I have fully participated in the care of the patient.: Yes I have reviewed all pertinent clinical information, including history, physical exam and plan: Yes
--- NOTE | 2018-06-11 13:29 | PN ---
Copied To: Daniel Torres MD Attending MD: Daniel Torres MD DATE: 06/11/2018 SUBJECTIVE: The patient is in bed, in no acute distress, nontoxic. PHYSICAL EXAMINATION: VITAL SIGNS: On exam, temperature is 97, blood pressure is 109/70, respiratory rate of 20, heart rate of 85. HEENT: Examination of HEENT is unremarkable. NECK: Supple. LUNGS: Have decreased breath sounds. HEART: Normal S1, S2. ABDOMEN: Soft, nontender. LABORATORY DATA: Laboratory examination reveals the patient's white count is 9.3, hemoglobin of 10, platelets of 496. Chemistries are noted and review of orders reveals the patient to be off of antibiotics. ASSESSMENT AND PLAN: A 58-year-old male initially admitted with sepsis due to Streptococcus viridans and coagulase-negative Staphylococcus bacteremia secondary to right gluteal and back cellulitis. The patient has liver masses on ultrasound. The patient did have multifocal healthcare-associated pneumonia with influenza A infection. Currently, off of antibiotics, afebrile and the repeat cultures and workup negative for systemic inflammatory response syndrome. We will follow with you. The patient is at risk for developing nosocomial infections. Daniel Torres MD
--- NOTE | 2018-06-11 16:16 | CP.PCM.PN ---
<Mariano Morin - Last Filed: 06/11/18 16:13> Subjective - Date & Time of Evaluation Date of Evaluation: 06/11/18 Time of Evaluation: 16:13 - Subjective Subjective: Mariano Morin DO PGY1 - Internal Medicine [facility] - Hospital Progress Note Patient was seen at bedside this AM; No overnight events, no complaints voiced at time of evaluation. States he ate his breakfast today. 12 system ROS is negative at this time. Objective - Vital Signs/Intake and Output Vital Signs (last 24 hours): Temp Pulse Resp BP Pulse Ox 97.3 F L 85 20 109/72 96 06/11/18 07:53 06/11/18 10:00 06/11/18 07:53 06/11/18 10:00 06/11/18 07:53 - Medications Medications: Current Medications Aspirin (Aspirin Chewable) 81 mg PO DAILY [facility] Last Admin: 06/11/18 10:00 Dose: 81 mg Atorvastatin Calcium (Lipitor) 20 mg PO DIN [facility] Last Admin: 06/10/18 17:04 Dose: 20 mg Citalopram Hydrobromide (Celexa) 10 mg PO DAILY [facility] Last Admin: 06/11/18 10:00 Dose: 10 mg Collagenase (Santyl) 0 gm TOP DAILY [facility] Last Admin: 06/11/18 10:01 Dose: 1 applic Ferrous Sulfate (Feosol Liq) 300 mg PO BID [facility] Last Admin: 06/11/18 10:01 Dose: Not Given Insulin Human Lispro (Humalog Low) 0 units SC [facility] PRN Reason: Protocol Last Admin: 06/11/18 11:42 Dose: 1 units Lisinopril (Zestril) 10 mg PO DAILY [facility] Last Admin: 06/11/18 10:00 Dose: 10 mg Metformin HCl (Glucophage) 500 mg PO BID [facility] Last Admin: 06/11/18 10:00 Dose: 500 mg Mupirocin (Bactroban Ointment) 0 gm TOP BID [facility] Last Admin: 06/11/18 10:02 Dose: 1 applic Pantoprazole Sodium (Protonix Ec Tab) 40 mg PO 0600 [facility] Last Admin: 06/11/18 10:00 Dose: 40 mg Thiamine HCl (Vitamin B1 Tab) 100 mg PO DAILY [facility] Last Admin: 06/11/18 10:01 Dose: 100 mg - Labs Labs: 06/07/18 06:00 06/07/18 06:00 PT 12.5 SECONDS (9.4-12.5) 12/09/17 10:00 INR 1.09 (0.93-1.08) H 12/09/17 10:00 APTT 28.3 Seconds (25.1-36.5) 11/30/17 05:30 Physical Exam - Constitutional Appears: Sitting upright in bed watchign TV, not in any distress - Head Exam Head Exam: Normocephalic, no trauma - Eye Exam Eye Exam: EOMI, pupils equal round and reactive to light - ENT Exam ENT Exam: Moist mucous membrane - Neck Exam Neck Exam: Normal inspection, no swelling or goiter, no carotid bruit appreciated - Respiratory Exam Respiratory Exam: Clear to auscultation in all lung hartley bilaterally no wheezes, rhonci, rales - Cardiovascular Exam Cardiovascular Exam: S1+ S2+ RRR no murmurs, no thrills - GI/Abdominal Exam GI & Abdominal Exam: Soft, Nondistended, Nontender, No murphys sign - Extremities Exam Extremities Exam: Normal Capillary Refill, Normal Inspection, 2+ Pulses in DP/ TP BL Additional comments: Both L and R foot w/ optifoam bandages on at this time. - Neurological Exam Neurological Exam: Alert, Awake Additional comments: Oriented x2 - Psychiatric Exam Psychiatric exam: Patient appears to be indifferent, flat affect, gives short one worded answers, does not appear to be agitated - Skin Skin Exam: Dry, Intact, Warm Assessment and Plan - Assessment and Plan (Free Text) Assessment: 57 year old male unknown PMHx admitted on 11/29/17 for AMS, right hip cellulitis , multifocal pneumonia, influenza A, strep viridians bacteremia with findings of stroke on MRI - acute vs. 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 Patient was treated for bacteremia with IV abx. Guardianship establishment pending court date; pending for 06/30/2018 The patient remains to be at his medical and mental baseline at this time. A list of his medical problems and active management can be found below: Plan: Anemia: H/H slowly downtrending over hospitalization; patient has had + heme occult test as well as known colonic polyp Most likely Fe+ deficiency in nature Patient with a microcytic anemia Iron level low TIBC wnl Retic count pending Started ferrous sulfate PO BID 8/9 Continue monitoring for constipation given new onset iron supplement Altered mental status At baseline this AM Cont. delirium precautions PT -patient refusing to participate Cont ASA 81 QD / LIPITOR 20 QD Dorsal Right Foot Ulcer Bandaged. Non purulent. Podiatry recommendations appreciated Wound care following [facility] No antibiotics warranted at this time per ID Coag negative Staphylococcus bacteremia - resolved Last bld clx negative 12/04/17 with completion of 6 week course of antibiotics Monitor WBC, ESR, CRP weekly Echocardiogram unable to rule out vegetations, family is unavailable for consent for [facility] Colonic mass CT Abd/Pelvis showing colonic mass and hepatic lesions GI consulted: follow recs Flex sig/colonoscopy refused by patient Family unable to be contacted for consent Diabetes mellitus type 2 Cont ISS low Cont Metformin 500mg BID Cont accuchecks Carb consistent diet HTN BP Stable, continue to monitor Cont Lisinopril 10 QD Pressures are currently well controlled without Amlodipine 10 mg PO QD Can resume if pressures increase Leukocytosis - RESOLVED WBC elevated 05/17 Patient srinivasan cultured Blood cx negative x2 after 48H Urine cx w/ multiple species ML contaminated Abd U/S - 7mm common bile duct dilatation and gallstones; Hepatic lesions measuring up to 4.9cm and 3.8 cm; compared to prev abd U/S from 12/05 lesions measured 4.1cm and 3.1cm No RUQ tenderness appreciated on exam; ID following, appreciate reccs Affective disorder Cont Celexa 10mg PO Daily Constipation Colace 100mg BID Miralax 17gm BID Discontinued Lactulose Hx ETOH Abuse Cont Thiamine Cont Folic Acid Cont Multivitamin DVT Prophylaxis: SCDs In summary, this a 57M w/ an unknown PMH and unknown mental baseline who was admitted on 11/29/2017 for Altered Mental Status. Patient was initially found to have an acute vs subacute stroke on MRI. On initial presentation patient was found to be oriented to person, but not time, or place. The patient was medically stabilized and treated in regards to his stroke. Despite medical optimization, the patient is still unable to display sort of decision making capacity at this time. The patient is evaluated daily in regards to his medical needs, and has had multiple psychiatric evaluations through his hospital course as well. Unfortunately, we have been unable to observe any change in his mental capacity over the past 6 months. He remains to have limited insight in regards to his situation at this time, and does not show any ability to care for himself. The patient's activities of daily living are severely limited, and if discharged will require daily [facility] nursing services in order to address his needs. He has been medically stabilized for quite some time, and has no medical necessity for an acute care facility. As per infectious disease, he is at a significant risk for healthcare-associated infections. Pt. seen, examined, and discussed with attending physician Dr. Iraj Morin DO PGY1 Internal Medicine [facility] - Pager [phone] <Sixto Galo - Last Filed: 06/11/18 16:26> Objective - Vital Signs/Intake and Output Vital Signs (last 24 hours): Temp Pulse Resp BP Pulse Ox 98.2 F 81 20 98/63 L 96 06/11/18 16:24 06/11/18 16:24 06/11/18 16:24 06/11/18 16:24 06/11/18 16:24 - Medications Medications: Current Medications Aspirin (Aspirin Chewable) 81 mg PO DAILY [facility] Last Admin: 06/11/18 10:00 Dose: 81 mg Atorvastatin Calcium (Lipitor) 20 mg PO DIN [facility] Last Admin: 06/10/18 17:04 Dose: 20 mg Citalopram Hydrobromide (Celexa) 10 mg PO DAILY [facility] Last Admin: 06/11/18 10:00 Dose: 10 mg Collagenase (Santyl) 0 gm TOP DAILY [facility] Last Admin: 06/11/18 10:01 Dose: 1 applic Ferrous Sulfate (Feosol Liq) 300 mg PO BID [facility] Last Admin: 06/11/18 10:01 Dose: Not Given Insulin Human Lispro (Humalog Low) 0 units SC [facility] PRN Reason: Protocol Last Admin: 06/11/18 11:42 Dose: 1 units Lisinopril (Zestril) 10 mg PO DAILY [facility] Last Admin: 06/11/18 10:00 Dose: 10 mg Metformin HCl (Glucophage) 500 mg PO BID [facility] Last Admin: 06/11/18 10:00 Dose: 500 mg Mupirocin (Bactroban Ointment) 0 gm TOP BID [facility] Last Admin: 06/11/18 10:02 Dose: 1 applic Pantoprazole Sodium (Protonix Ec Tab) 40 mg PO 0600 [facility] Last Admin: 06/11/18 10:00 Dose: 40 mg Thiamine HCl (Vitamin B1 Tab) 100 mg PO DAILY [facility] Last Admin: 06/11/18 10:01 Dose: 100 mg - Labs Labs: 06/07/18 06:00 06/07/18 06:00 PT 12.5 SECONDS (9.4-12.5) 12/09/17 10:00 INR 1.09 (0.93-1.08) H 12/09/17 10:00 APTT 28.3 Seconds (25.1-36.5) 11/30/17 05:30 Attending/Attestation - Attestation I have personally seen and examined this patient.: Yes I have fully participated in the care of the patient.: Yes I have reviewed all pertinent clinical information, including history, physical exam and plan: Yes Notes (Text): 06/11/18 16:25 57 year old male who was admitted with altered mental status. He was found to have bacteremia, cellulitis and pneumonia for which he has completed antibiotics. He also had CVA. He is on aspirin and statin. He appears comfortable this morning without any new complaints. Mental status is at his baseline. Podiatry is following for foot ulceration. He is pending placement/guardianship. Court date is 06/30/18. Sixto Galo MD Hospitalist.
[2018-06-12] MEDS: Pantoprazole 40 mg EC Tab PO SCH (05:00)
[2018-06-12] MEDS: Insulin Lispro (humaLOG) LOW Coverage SC SCH ×4 (08:11→21:52)
[2018-06-12] MEDS: Ferrous Sulfate 300 mg/5 mL Liq UD PO SCH ×2 (10:29→17:23)
[2018-06-12] MEDS: Mupirocin 2% Ointment 15 GM TUBE TOP SCH ×2 (10:29→17:23)
[2018-06-12] MEDS: Collagenase 250 Units/gm Ointment(30 gm) TOP SCH (10:30)
--- NOTE | 2018-06-12 12:46 | CP.PCM.PN ---
<James Barroso R - Last Filed: 06/12/18 12:50> Subjective - Date & Time of Evaluation Date of Evaluation: 06/12/18 Time of Evaluation: 09:45 - Subjective Subjective: PGY-[address] Galo. No acute events noted overnight. Patient at his baseline. Denied chest pain, abdominal pain, foot pain, fevers, nausea, vomiting. Patient was seen by podiatry yesterday. No acute changes. Objective - Vital Signs/Intake and Output Vital Signs (last 24 hours): Temp Pulse Resp BP Pulse Ox 97.8 F 91 H 20 104/64 96 06/12/18 07:58 06/12/18 10:31 06/12/18 07:58 06/12/18 07:58 06/12/18 07:58 Intake and Output: 06/12/18 06/12/18 06:59 18:59 Intake Total 120 Balance 120 - Medications Medications: Current Medications Aspirin (Aspirin Chewable) 81 mg PO DAILY [facility] Last Admin: 06/12/18 10:29 Dose: 81 mg Atorvastatin Calcium (Lipitor) 20 mg PO DIN [facility] Last Admin: 06/11/18 17:27 Dose: 20 mg Citalopram Hydrobromide (Celexa) 10 mg PO DAILY [facility] Last Admin: 06/12/18 10:29 Dose: 10 mg Collagenase (Santyl) 0 gm TOP DAILY [facility] Last Admin: 06/12/18 10:30 Dose: 1 applic Ferrous Sulfate (Feosol Liq) 300 mg PO BID [facility] Last Admin: 06/12/18 10:29 Dose: Not Given Insulin Human Lispro (Humalog Low) 0 units SC [facility] PRN Reason: Protocol Last Admin: 06/12/18 12:20 Dose: 1 units Lisinopril (Zestril) 10 mg PO DAILY [facility] Last Admin: 06/12/18 10:31 Dose: 10 mg Metformin HCl (Glucophage) 500 mg PO BID [facility] Last Admin: 06/12/18 10:29 Dose: 500 mg Mupirocin (Bactroban Ointment) 0 gm TOP BID [facility] Last Admin: 06/12/18 10:29 Dose: 1 applic Pantoprazole Sodium (Protonix Ec Tab) 40 mg PO 0600 [facility] Last Admin: 06/12/18 05:00 Dose: 40 mg Thiamine HCl (Vitamin B1 Tab) 100 mg PO DAILY [facility] Last Admin: 06/12/18 10:30 Dose: 100 mg - Labs Labs: 06/07/18 06:00 06/07/18 06:00 PT 12.5 SECONDS (9.4-12.5) 12/09/17 10:00 INR 1.09 (0.93-1.08) H 12/09/17 10:00 APTT 28.3 Seconds (25.1-36.5) 11/30/17 05:30 - Additional Findings Additional findings: - Constitutional Appears: Sitting upright in bed watchign TV, not in any distress - Head Exam Head Exam: Normocephalic, no trauma - Eye Exam Eye Exam: EOMI, pupils equal round and reactive to light - ENT Exam ENT Exam: Moist mucous membrane - Neck Exam Neck Exam: Normal inspection, no swelling or goiter, no carotid bruit appreciated - Respiratory Exam Respiratory Exam: Clear to auscultation in all lung hart[place] bilaterally no wheezes, rhonci, rales - Cardiovascular Exam Cardiovascular Exam: S1+ S2+ RRR no murmurs, no thrills - GI/Abdominal Exam GI & Abdominal Exam: Soft, Nondistended, Nontender, No murphys sign - Extremities Exam Extremities Exam: Normal Capillary Refill, Normal Inspection, 2+ Pulses in DP/ TP BL Additional comments: Both L and R foot w/ optifoam bandages on at this time. - Neurological Exam Neurological Exam: Alert, Awake Additional comments: Oriented x2 - Psychiatric Exam Psychiatric exam: Patient appears to be indifferent, flat affect, gives short one worded answers, does not appear to be agitated - Skin Skin Exam: Dry, Intact, Warm Assessment and Plan - Assessment and Plan (Free Text) Assessment: 57 year old male unknown PMHx admitted on 11/29/17 for AMS, right hip cellulitis , multifocal pneumonia, influenza A, strep viridians bacteremia with findings of stroke on MRI - acute vs. 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 Patient was treated for bacteremia with IV abx. Guardianship establishment pending court date; pending for 06/30/2018 The patient remains to be at his medical and mental baseline at this time. A list of his medical problems and active management can be found below: Plan: Anemia: H/H slowly downtrending over hospitalization; patient has had + heme occult test as well as known colonic polyp Most likely Fe+ deficiency in nature Patient with a microcytic anemia Iron level low TIBC wnl Retic count 1.30 Started ferrous sulfate PO BID 05/26 Continue monitoring for constipation given new onset iron supplement Altered mental status At baseline this AM Cont. delirium precautions PT -patient refusing to participate Cont ASA 81 QD / LIPITOR 20 QD Dorsal Right Foot Ulcer Bandaged. Non purulent. Podiatry recommendations appreciated Wound care following [facility] No antibiotics warranted at this time per ID Coag negative Staphylococcus bacteremia - resolved Last bld clx negative 12/04/17 with completion of 6 week course of antibiotics Monitor WBC, ESR, CRP weekly Echocardiogram unable to rule out vegetations, family is unavailable for consent for [facility] Colonic mass CT Abd/Pelvis showing colonic mass and hepatic lesions GI consulted: follow recs Flex sig/colonoscopy refused by patient Family unable to be contacted for consent Diabetes mellitus type 2 Cont ISS low Cont Metformin 500mg BID Cont accuchecks Carb consistent diet HTN BP Stable, continue to monitor Cont Lisinopril 10 QD Pressures are currently well controlled without Amlodipine 10 mg PO QD Can resume if pressures increase Leukocytosis - RESOLVED WBC elevated 05/17 Patient srinivasan cultured Blood cx negative x2 after 48H Urine cx w/ multiple species ML contaminated Abd U/S - 7mm common bile duct dilatation and gallstones; Hepatic lesions measuring up to 4.9cm and 3.8 cm; compared to prev abd U/S from 12/05 lesions measured 4.1cm and 3.1cm No RUQ tenderness appreciated on exam; ID following, appreciate reccs Affective disorder Cont Celexa 10mg PO Daily Constipation Colace 100mg BID Miralax 17gm BID Discontinued Lactulose Hx ETOH Abuse Cont Thiamine Cont Folic Acid Cont Multivitamin DVT Prophylaxis: SCDs In summary, this a 57M w/ an unknown PMH and unknown mental baseline who was admitted on 11/29/2017 for Altered Mental Status. Patient was initially found to have an acute vs subacute stroke on MRI. On initial presentation patient was found to be oriented to person, but not time, or place. The patient was medically stabilized and treated in regards to his stroke. Despite medical optimization, the patient is still unable to display sort of decision making capacity at this time. The patient is evaluated daily in regards to his medical needs, and has had multiple psychiatric evaluations through his hospital course as well. Unfortunately, we have been unable to observe any change in his mental capacity over the past 6 months. He remains to have limited insight in regards to his situation at this time, and does not show any ability to care for himself. 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 He has been medically stabilized for quite some time, and has no medical necessity for an acute care facility. As per infectious disease, he is at a significant risk for healthcare-associated infections. Pt. seen, examined, and discussed with attending physician Dr. Galo <Sixto Galo - Last Filed: 06/12/18 13:08> Objective - Vital Signs/Intake and Output Vital Signs (last 24 hours): Temp Pulse Resp BP Pulse Ox 97.8 F 91 H 20 104/64 96 06/12/18 07:58 06/12/18 10:31 06/12/18 07:58 06/12/18 07:58 06/12/18 07:58 Intake and Output: 06/12/18 06/12/18 06:59 18:59 Intake Total 120 Balance 120 - Medications Medications: Current Medications Aspirin (Aspirin Chewable) 81 mg PO DAILY [facility] Last Admin: 06/12/18 10:29 Dose: 81 mg Atorvastatin Calcium (Lipitor) 20 mg PO DIN [facility] Last Admin: 06/11/18 17:27 Dose: 20 mg Citalopram Hydrobromide (Celexa) 10 mg PO DAILY [facility] Last Admin: 06/12/18 10:29 Dose: 10 mg Collagenase (Santyl) 0 gm TOP DAILY [facility] Last Admin: 06/12/18 10:30 Dose: 1 applic Ferrous Sulfate (Feosol Liq) 300 mg PO BID [facility] Last Admin: 06/12/18 10:29 Dose: Not Given Insulin Human Lispro (Humalog Low) 0 units SC [facility] PRN Reason: Protocol Last Admin: 06/12/18 12:20 Dose: 1 units Lisinopril (Zestril) 10 mg PO DAILY [facility] Last Admin: 06/12/18 10:31 Dose: 10 mg Metformin HCl (Glucophage) 500 mg PO BID [facility] Last Admin: 06/12/18 10:29 Dose: 500 mg Mupirocin (Bactroban Ointment) 0 gm TOP BID [facility] Last Admin: 06/12/18 10:29 Dose: 1 applic Pantoprazole Sodium (Protonix Ec Tab) 40 mg PO 0600 [facility] Last Admin: 06/12/18 05:00 Dose: 40 mg Thiamine HCl (Vitamin B1 Tab) 100 mg PO DAILY [facility] Last Admin: 06/12/18 10:30 Dose: 100 mg - Labs Labs: 06/07/18 06:00 06/07/18 06:00 PT 12.5 SECONDS (9.4-12.5) 12/09/17 10:00 INR 1.09 (0.93-1.08) H 12/09/17 10:00 APTT 28.3 Seconds (25.1-36.5) 11/30/17 05:30 Attending/Attestation - Attestation I have personally seen and examined this patient.: Yes I have fully participated in the care of the patient.: Yes I have reviewed all pertinent clinical information, including history, physical exam and plan: Yes Notes (Text): 06/12/18 13:07 57 year old male who was admitted with altered mental status. He was found to have bacteremia, cellulitis and pneumonia for which he has completed antibiotics. He also had CVA. He is on aspirin and statin. Mental status is at his baseline. No acute events overnight. No new complaints this morning. Podiatry is following for foot ulceration. He is pending placement/guardianship. Court date is 06/30/18. Sixto Galo MD Hospitalist.
--- NOTE | 2018-06-12 13:23 | CP.PCM.PN ---
<Michael Carver - Last Filed: 06/12/18 13:20> Subjective - Date & Time of Evaluation Date of Evaluation: 06/12/18 Time of Evaluation: 13:20 - Subjective Subjective: Podiatry Progress Note for attending Dr. Davis 58 y/o male patient seen and evaluated at bedside for right anterior ankle ulceration and left ankle abrasion. Patient is resting comfortably in bed and in NAD at time of visit. Patient is AAO X 3. Patient denies any pain in her feet. Patient denies any overnight acute events. Patient denies any other pedal complaint. Patient denies any over night F/N/V/C or SOB. Objective - Vital Signs/Intake and Output Vital Signs (last 24 hours): Temp Pulse Resp BP Pulse Ox 97.8 F 91 H 20 104/64 96 06/12/18 07:58 06/12/18 10:31 06/12/18 07:58 06/12/18 07:58 06/12/18 07:58 Intake and Output: 06/12/18 06/12/18 06:59 18:59 Intake Total 120 Balance 120 - Medications Medications: Current Medications Aspirin (Aspirin Chewable) 81 mg PO DAILY [facility] Last Admin: 06/12/18 10:29 Dose: 81 mg Atorvastatin Calcium (Lipitor) 20 mg PO DIN [facility] Last Admin: 06/11/18 17:27 Dose: 20 mg Citalopram Hydrobromide (Celexa) 10 mg PO DAILY [facility] Last Admin: 06/12/18 10:29 Dose: 10 mg Collagenase (Santyl) 0 gm TOP DAILY [facility] Last Admin: 06/12/18 10:30 Dose: 1 applic Ferrous Sulfate (Feosol Liq) 300 mg PO BID [facility] Last Admin: 06/12/18 10:29 Dose: Not Given Insulin Human Lispro (Humalog Low) 0 units SC ACHS [facility] PRN Reason: Protocol Last Admin: 06/12/18 12:20 Dose: 1 units Lisinopril (Zestril) 10 mg PO DAILY [facility] Last Admin: 06/12/18 10:31 Dose: 10 mg Metformin HCl (Glucophage) 500 mg PO BID [facility] Last Admin: 06/12/18 10:29 Dose: 500 mg Mupirocin (Bactroban Ointment) 0 gm TOP BID [facility] Last Admin: 06/12/18 10:29 Dose: 1 applic Pantoprazole Sodium (Protonix Ec Tab) 40 mg PO 0600 [facility] Last Admin: 06/12/18 05:00 Dose: 40 mg Thiamine HCl (Vitamin B1 Tab) 100 mg PO DAILY [facility] Last Admin: 06/12/18 10:30 Dose: 100 mg - Labs Labs: 06/07/18 06:00 06/07/18 06:00 PT 12.5 SECONDS (9.4-12.5) 12/09/17 10:00 INR 1.09 (0.93-1.08) H 12/09/17 10:00 APTT 28.3 Seconds (25.1-36.5) 11/30/17 05:30 - Constitutional Appears: Well, Non-toxic, No Acute Distress - Head Exam Head Exam: ATRAUMATIC, NORMOCEPHALIC - Extremities Exam Additional comments: B/L Lower extremity exam: Vasc: DP/PT faintly palpable b/l, Cap refill > 3 seconds in all digits, temperature gradient cool to cool, no edema noted to the lower extremities Neuro: Gross and protective sensations are grossly intact b/l Derm: Ulceration noted to the anterior aspect of right ankle at the level of the ankle joint measuring approximately 2 cm x 1 cm x 0.1 cm, wound is mainly fibro-grannular. Minimal periwound erythema noted. No streaking, no drainage, no tunneling, no abscess, no malodor or drainage, no fluctuance noted, no other clinical signs of infection. No probe to bone. Abrasion noted to left anterior ankle, No clinical signs of infection or break in skin appreciated. MSK: No pain with palpation to the entire lower extremity, no calf pain or tenderness appreciated. - Neurological Exam Neurological Exam: Alert, Awake, Oriented x3 - Psychiatric Exam Psychiatric exam: Normal Affect, Normal Mood Assessment and Plan - Assessment and Plan (Free Text) Assessment: 58 y/o male seen at bedside for right anterior ankle ulceration and left ankle abrasion Plan: Patient seen and evaluated at bedside Discussed the plan with attending Dr. Davis Chart, labs and vitals reviewed; Afebrile, absent leukocytosis Left ankle dressed with bactroban, optifoam, Right ankle dressed with Optifoam No plan for surgical intervention at this time Podiatry sign out from local wound care of the left ankle. continue local wound care of the right ankle. Stable from podiatry standpoint Podiatry will continue to follow while patient in house. <Raciel Davis - Last Filed: 06/14/18 15:47> Objective - Vital Signs/Intake and Output Vital Signs (last 24 hours): Temp Pulse Resp BP Pulse Ox 98.8 F 81 20 115/55 L 96 06/14/18 08:14 06/14/18 09:21 06/14/18 08:14 06/14/18 09:21 06/14/18 08:14 - Medications Medications: Current Medications Aspirin (Aspirin Chewable) 81 mg PO DAILY [facility] Last Admin: 06/14/18 09:21 Dose: 81 mg Atorvastatin Calcium (Lipitor) 20 mg PO DIN [facility] Last Admin: 06/13/18 17:04 Dose: 20 mg Citalopram Hydrobromide (Celexa) 10 mg PO DAILY [facility] Last Admin: 06/14/18 09:21 Dose: 10 mg Collagenase (Santyl) 0 gm TOP DAILY [facility] Last Admin: 06/14/18 09:23 Dose: 1 applic Ferrous Sulfate (Feosol Liq) 300 mg PO BID [facility] Last Admin: 06/14/18 09:21 Dose: 300 mg Insulin Human Lispro (Humalog Low) 0 units SC [facility] PRN Reason: Protocol Last Admin: 06/14/18 14:05 Dose: 1 units Lisinopril (Zestril) 10 mg PO DAILY [facility] Last Admin: 06/14/18 09:21 Dose: 10 mg Metformin HCl (Glucophage) 500 mg PO BID [facility] Last Admin: 06/14/18 09:21 Dose: 500 mg Mupirocin (Bactroban Ointment) 0 gm TOP BID [facility] Last Admin: 06/14/18 09:23 Dose: 1 applic Pantoprazole Sodium (Protonix Ec Tab) 40 mg PO 0600 [facility] Last Admin: 06/14/18 05:43 Dose: 40 mg Thiamine HCl (Vitamin B1 Tab) 100 mg PO DAILY [facility] Last Admin: 06/14/18 09:21 Dose: 100 mg - Labs Labs: 06/14/18 06:00 06/14/18 06:00 PT 12.5 SECONDS (9.4-12.5) 12/09/17 10:00 INR 1.09 (0.93-1.08) H 12/09/17 10:00 APTT 28.3 Seconds (25.1-36.5) 11/30/17 05:30 Attending/Attestation - Attestation I have personally seen and examined this patient.: Yes I have fully participated in the care of the patient.: Yes I have reviewed all pertinent clinical information, including history, physical exam and plan: Yes
--- NOTE | 2018-06-12 14:18 | PN ---
Copied To: Daniel Torres MD Attending MD: Daniel Torres MD DATE: 06/12/2018 SUBJECTIVE: The patient is in bed, in no acute distress, nontoxic. PHYSICAL EXAMINATION: VITAL SIGNS: On exam, temperature is 98, blood pressure is 104/60, respiratory rate of 20. HEENT: Examination of HEENT is unremarkable. NECK: Supple. LUNGS: Have decreased breath sounds. HEART: Normal S1, S2. ABDOMEN: Soft. LABORATORY DATA: Laboratory examination reveals the white count is 9.3, hemoglobin of 10 and the chemistries are noted with a creatinine of 0.5. Urinalysis is noted. ASSESSMENT AND PLAN: A 58-year-old male, seen earlier today in 363, bed 1. Initially was admitted with sepsis with strep viridans and coag-negative Staphylococcus bacteremia secondary to a right gluteal and back cellulitis, found to have liver masses on ultrasound with multifocal healthcare-associated pneumonia with influenza A infection. Currently, the patient had an episode of systemic inflammatory response syndrome. Repeat workup was negative. Currently, off of antibiotics, afebrile; however, at risk for developing nosocomial infections. Daniel Torres MD
[2018-06-13] MEDS: Pantoprazole 40 mg EC Tab PO SCH (05:00)
[2018-06-13] MEDS: Insulin Lispro (humaLOG) LOW Coverage SC SCH ×4 (07:55→22:00)
[2018-06-13] MEDS: Ferrous Sulfate 300 mg/5 mL Liq UD PO SCH ×2 (09:03→17:04)
[2018-06-13] MEDS: Mupirocin 2% Ointment 15 GM TUBE TOP SCH ×2 (09:06→17:12)
[2018-06-13] MEDS: Collagenase 250 Units/gm Ointment(30 gm) TOP SCH (09:07)
--- NOTE | 2018-06-13 12:33 | CP.PCM.PN ---
<Jorge Luis Lopez - Last Filed: 06/14/18 09:07> Subjective - Date & Time of Evaluation Date of Evaluation: 06/13/18 Time of Evaluation: 07:50 - Subjective Subjective: Patient seen and examined at bedside in no acute distress. States he made bowel movements overnight. Denies nausea, vomiting, diarrhea, abdominal pain, chest pain, shortness of breath, dysuria, lower extremity pain/swelling, headache, cough. Objective - Vital Signs/Intake and Output Vital Signs (last 24 hours): Temp Pulse Resp BP Pulse Ox 97.7 F 78 19 98/65 L 95 06/13/18 08:01 06/13/18 09:03 06/13/18 08:01 06/13/18 09:03 06/13/18 08:01 Intake and Output: 06/13/18 06/13/18 06:59 18:59 Intake Total 1680 Output Total 1 Balance 1679 - Medications Medications: Current Medications Aspirin (Aspirin Chewable) 81 mg PO DAILY [facility] Last Admin: 06/13/18 09:03 Dose: 81 mg Atorvastatin Calcium (Lipitor) 20 mg PO DIN [facility] Last Admin: 06/12/18 17:23 Dose: 20 mg Citalopram Hydrobromide (Celexa) 10 mg PO DAILY [facility] Last Admin: 06/13/18 09:03 Dose: 10 mg Collagenase (Santyl) 0 gm TOP DAILY [facility] Last Admin: 06/13/18 09:07 Dose: 1 applic Ferrous Sulfate (Feosol Liq) 300 mg PO BID [facility] Last Admin: 06/13/18 09:03 Dose: 300 mg Insulin Human Lispro (Humalog Low) 0 units SC [facility] PRN Reason: Protocol Last Admin: 06/13/18 11:30 Dose: Not Given Lisinopril (Zestril) 10 mg PO DAILY [facility] Last Admin: 06/13/18 09:03 Dose: 10 mg Metformin HCl (Glucophage) 500 mg PO BID [facility] Last Admin: 06/13/18 09:03 Dose: 500 mg Mupirocin (Bactroban Ointment) 0 gm TOP BID [facility] Last Admin: 06/13/18 09:06 Dose: 1 applic Pantoprazole Sodium (Protonix Ec Tab) 40 mg PO 0600 [facility] Last Admin: 06/13/18 05:00 Dose: 40 mg Thiamine HCl (Vitamin B1 Tab) 100 mg PO DAILY [facility] Last Admin: 06/13/18 09:03 Dose: 100 mg - Labs Labs: 06/07/18 06:00 06/07/18 06:00 PT 12.5 SECONDS (9.4-12.5) 12/09/17 10:00 INR 1.09 (0.93-1.08) H 12/09/17 10:00 APTT 28.3 Seconds (25.1-36.5) 11/30/17 05:30 - Constitutional Appears: Non-toxic - Head Exam Head Exam: ATRAUMATIC, NORMAL INSPECTION, NORMOCEPHALIC - Eye Exam Eye Exam: EOMI - ENT Exam ENT Exam: Mucous Membranes Moist - Neck Exam Neck Exam: Full ROM, Normal Inspection - Respiratory Exam Respiratory Exam: Clear to Ausculation Bilateral, NORMAL BREATHING PATTERN. absent: Rhonchi, Wheezes - Cardiovascular Exam Cardiovascular Exam: REGULAR RHYTHM, +S1, +S2 - GI/Abdominal Exam GI & Abdominal Exam: Soft, Normal Bowel Sounds. absent: Tenderness - Extremities Exam Extremities Exam: Full ROM - Back Exam Back Exam: NORMAL INSPECTION - Neurological Exam Neurological Exam: Alert, Awake, Oriented x3 - Psychiatric Exam Psychiatric exam: Normal Affect, Normal Mood - Skin Skin Exam: Intact, Normal Color, Warm Assessment and Plan - Assessment and Plan (Free Text) Assessment: 57 year old male unknown PMHx admitted on 11/29/17 for AMS, right hip cellulitis , multifocal pneumonia, influenza A, strep viridians bacteremia with findings of stroke on MRI - acute vs. 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 Patient was treated for bacteremia with IV abx. Guardianship establishment pending court date; pending for 06/30/2018 The patient remains to be at his medical and mental baseline at this time. A list of his medical problems and active management can be found below: Plan: Anemia: Patient with a microcytic anemia Iron level low TIBC wnl Retic count 1.30 Started ferrous sulfate PO BID 05/26 Continue monitoring for constipation given new onset iron supplement Altered mental status At baseline this morning Cont. delirium precautions PT -patient refusing to participate Cont ASA 81 QD / LIPITOR 20 QD Dorsal Right Foot Ulcer Bandaged. Non purulent. Podiatry recommendations appreciated Wound care following On [facility] No antibiotics warranted at this time per ID Coag negative Staphylococcus bacteremia - resolved Last bld clx negative 12/04/17 with completion of 6 week course of antibiotics Monitor WBC, ESR, CRP weekly Echocardiogram unable to rule out vegetations, family is unavailable for consent for TAHIR Colonic mass CT Abd/Pelvis showing colonic mass and hepatic lesions GI consulted: follow recs Flex sig/colonoscopy refused by patient Family unable to be contacted for consent Diabetes mellitus type 2 Cont ISS low Cont Metformin 500mg BID Cont accuchecks Carb consistent diet HTN BP Stable, continue to monitor Cont Lisinopril 10 QD Pressures are currently well controlled without Amlodipine 10 mg PO QD Can resume if pressures increase Leukocytosis - RESOLVED WBC elevated 05/17 Patient srinivasan cultured Blood cx negative x2 after 48H Urine cx w/ multiple species ML contaminated Abd U/S - 7mm common bile duct dilatation and gallstones; Hepatic lesions measuring up to 4.9cm and 3.8 cm; compared to prev abd U/S from 12/05 lesions measured 4.1cm and 3.1cm No RUQ tenderness appreciated on exam; ID following, appreciate reccs Affective disorder Cont Celexa 10mg PO Daily Constipation Colace 100mg BID Miralax 17gm BID Hx ETOH Abuse Cont Thiamine Cont Folic Acid Cont Multivitamin DVT Prophylaxis: SCDs <Sixto Galo A - Last Filed: 06/14/18 13:19> Objective - Vital Signs/Intake and Output Vital Signs (last 24 hours): Temp Pulse Resp BP Pulse Ox 98.8 F 81 20 115/55 L 96 06/14/18 08:14 06/14/18 09:21 06/14/18 08:14 06/14/18 09:21 06/14/18 08:14 - Medications Medications: Current Medications Aspirin (Aspirin Chewable) 81 mg PO DAILY [facility] Last Admin: 06/14/18 09:21 Dose: 81 mg Atorvastatin Calcium (Lipitor) 20 mg PO DIN [facility] Last Admin: 06/13/18 17:04 Dose: 20 mg Citalopram Hydrobromide (Celexa) 10 mg PO DAILY [facility] Last Admin: 06/14/18 09:21 Dose: 10 mg Collagenase (Santyl) 0 gm TOP DAILY [facility] Last Admin: 06/14/18 09:23 Dose: 1 applic Ferrous Sulfate (Feosol Liq) 300 mg PO BID [facility] Last Admin: 06/14/18 09:21 Dose: 300 mg Insulin Human Lispro (Humalog Low) 0 units SC [facility] PRN Reason: Protocol Last Admin: 06/14/18 07:57 Dose: Not Given Lisinopril (Zestril) 10 mg PO DAILY [facility] Last Admin: 06/14/18 09:21 Dose: 10 mg Metformin HCl (Glucophage) 500 mg PO BID [facility] Last Admin: 06/14/18 09:21 Dose: 500 mg Mupirocin (Bactroban Ointment) 0 gm TOP BID [facility] Last Admin: 06/14/18 09:23 Dose: 1 applic Pantoprazole Sodium (Protonix Ec Tab) 40 mg PO 0600 [facility] Last Admin: 06/14/18 05:43 Dose: 40 mg Thiamine HCl (Vitamin B1 Tab) 100 mg PO DAILY [facility] Last Admin: 06/14/18 09:21 Dose: 100 mg - Labs Labs: 06/14/18 06:00 06/14/18 06:00 PT 12.5 SECONDS (9.4-12.5) 12/09/17 10:00 INR 1.09 (0.93-1.08) H 12/09/17 10:00 APTT 28.3 Seconds (25.1-36.5) 11/30/17 05:30 Attending/Attestation - Attestation I have personally seen and examined this patient.: Yes I have fully participated in the care of the patient.: Yes I have reviewed all pertinent clinical information, including history, physical exam and plan: Yes Notes (Text): 06/13/18 57 year old male who was admitted with altered mental status. He was found to have bacteremia, cellulitis and pneumonia for which he has completed antibiotics. He also had CVA. He is on aspirin and statin. He is comfortable without new complaints. Mental status is baseline. Podiatry is following for foot ulceration. He is pending placement/guardianship. Court date is 06/30/18. Sixto Galo MD Hospitalist.
--- NOTE | 2018-06-13 15:37 | CP.PCM.PN ---
<Vickie Vang - Last Filed: 06/13/18 17:42> Subjective - Date & Time of Evaluation Date of Evaluation: 06/13/18 Time of Evaluation: 14:00 - Subjective Subjective: Podiatry Progress Note - Drs. Oakley/Susan 58M seen and evaluated this AM for right anterior ankle ulcer and left ankle abrasion. Patient resting comfortably, NAD. No acute events overnight. No pain in ankle wounds b/l. Dressings remain clean/dry/intact. Denies N/V/F/D/C/SOB. No new complaints. Objective - Vital Signs/Intake and Output Vital Signs (last 24 hours): Temp Pulse Resp BP Pulse Ox 97.7 F 78 19 98/65 L 95 06/13/18 08:01 06/13/18 09:03 06/13/18 08:01 06/13/18 09:03 06/13/18 08:01 Intake and Output: 06/13/18 06/13/18 06:59 18:59 Intake Total 1680 Output Total 1 Balance 1679 - Medications Medications: Current Medications Aspirin (Aspirin Chewable) 81 mg PO DAILY [facility] Last Admin: 06/13/18 09:03 Dose: 81 mg Atorvastatin Calcium (Lipitor) 20 mg PO DIN [facility] Last Admin: 06/12/18 17:23 Dose: 20 mg Citalopram Hydrobromide (Celexa) 10 mg PO DAILY [facility] Last Admin: 06/13/18 09:03 Dose: 10 mg Collagenase (Santyl) 0 gm TOP DAILY [facility] Last Admin: 06/13/18 09:07 Dose: 1 applic Ferrous Sulfate (Feosol Liq) 300 mg PO BID [facility] Last Admin: 06/13/18 09:03 Dose: 300 mg Insulin Human Lispro (Humalog Low) 0 units SC [facility] PRN Reason: Protocol Last Admin: 06/13/18 11:30 Dose: Not Given Lisinopril (Zestril) 10 mg PO DAILY [facility] Last Admin: 06/13/18 09:03 Dose: 10 mg Metformin HCl (Glucophage) 500 mg PO BID [facility] Last Admin: 06/13/18 09:03 Dose: 500 mg Mupirocin (Bactroban Ointment) 0 gm TOP BID [facility] Last Admin: 06/13/18 09:06 Dose: 1 applic Pantoprazole Sodium (Protonix Ec Tab) 40 mg PO 0600 [facility] Last Admin: 06/13/18 05:00 Dose: 40 mg Thiamine HCl (Vitamin B1 Tab) 100 mg PO DAILY [facility] Last Admin: 06/13/18 09:03 Dose: 100 mg - Labs Labs: 06/07/18 06:00 06/07/18 06:00 PT 12.5 SECONDS (9.4-12.5) 12/09/17 10:00 INR 1.09 (0.93-1.08) H 12/09/17 10:00 APTT 28.3 Seconds (25.1-36.5) 11/30/17 05:30 - Constitutional Appears: Well, Non-toxic, No Acute Distress - Extremities Exam Additional comments: Bilateral lower extremity physical exam: Vasc: DP and PT pulses weakly palpable 1/4 b/l. CFT delayed >3 seconds x10. Temperature gradient warm to warm b/l. No edema noted. Neuro: Gross sensation intact bilaterally. Derm: Linear ulceration noted to anterior aspect of right ankle measuring approximately 2 x 1 cm with overlying soft eschar; no periwound noted; no drainage; no purulence; no fluctuance; no malodor; no clinical signs of infection noted. Pinpoint abrasion noted to left anterior ankle; no drainage; no purulence; no flucutance; no clinical sings of infection noted. Ortho: No pain on palpation noted to lower extremities. No calf pain or tenderness appreciated. - Neurological Exam Neurological Exam: Alert, Awake, Oriented x3 - Psychiatric Exam Psychiatric exam: Normal Affect, Normal Mood Assessment and Plan - Assessment and Plan (Free Text) Assessment: 58M with right anterior ankle ulceration and left ankle abrasion Plan: Patient seen and evaluated at bedside Discussed with attending, Dr. Oakley Continue local wound care: -RLE bactroban, optifoam -LLE optifoam Wounds stable from podiatry standpoint No plan for surgical intervention at this time Podiatry will follow <Ivania Oakley - Last Filed: 06/19/18 18:37> Objective - Vital Signs/Intake and Output Vital Signs (last 24 hours): Temp Pulse Resp BP Pulse Ox 98.3 F 86 20 107/69 94 L 06/19/18 16:42 06/19/18 16:42 06/19/18 16:42 06/19/18 16:42 06/19/18 16:42 Intake and Output: 06/19/18 06/19/18 06:59 18:59 Intake Total 50 Balance 50 - Medications Medications: Current Medications Aspirin (Aspirin Chewable) 81 mg PO DAILY [facility] Last Admin: 06/19/18 10:20 Dose: 81 mg Citalopram Hydrobromide (Celexa) 10 mg PO DAILY [facility] Last Admin: 06/19/18 10:21 Dose: 10 mg Collagenase (Santyl) 0 gm TOP DAILY [facility] Last Admin: 06/19/18 10:23 Dose: 1 applic Insulin Human Lispro (Humalog Low) 0 units SC [facility] PRN Reason: Protocol Last Admin: 06/19/18 17:47 Dose: 1 units Lisinopril (Zestril) 10 mg PO DAILY [facility] Last Admin: 06/19/18 10:21 Dose: Not Given Pantoprazole Sodium (Protonix Ec Tab) 40 mg PO 0600 [facility] Last Admin: 06/19/18 05:53 Dose: 40 mg Thiamine HCl (Vitamin B1 Tab) 100 mg PO DAILY [facility] Last Admin: 06/19/18 10:20 Dose: 100 mg - Labs Labs: 06/16/18 10:30 06/14/18 06:00 PT 12.5 SECONDS (9.4-12.5) 12/09/17 10:00 INR 1.09 (0.93-1.08) H 12/09/17 10:00 APTT 28.3 Seconds (25.1-36.5) 11/30/17 05:30
--- NOTE | 2018-06-13 23:34 | PN ---
Copied To: Daniel Torres MD Attending MD: Daniel Torres MD DATE: 06/13/2018 SUBJECTIVE: The patient is in bed, in no acute distress, nontoxic. PHYSICAL EXAMINATION: VITAL SIGNS: On exam, temperature is 98, blood pressure is 103/70, respiratory rate of 18, heart rate of 78. HEENT: Examination of HEENT is unremarkable. NECK: Supple. LUNGS: Have decreased breath sounds. HEART: Normal S1, S2. ABDOMEN: Soft, nontender. LABORATORY DATA: Laboratory examination reviewed. ASSESSMENT AND PLAN: A 58-year-old male who was seen earlier, was initially admitted with sepsis with strep viridans and coag-negative Staphylococcus bacteremia secondary to right gluteal and back cellulitis, found to have liver masses on ultrasound, multifocal healthcare-associated pneumonia with influenza infection, currently an episode of systemic inflammatory response syndrome and currently off of antibiotics, afebrile. The patient is at risk for developing nosocomial infections. Review of the orders confirms the patient to be off of antibiotics. Daniel Torres MD [facility] # [id number]
[2018-06-14] MEDS: Pantoprazole 40 mg EC Tab PO SCH (05:43)
[2018-06-14 06:44] LABS: BASO # 0.03 K/mm3 (0.0-2.0); BASO % 0.3 % (0.0-3.0); EOS # 0.2 (0.0-0.7); EOS % 1.9 % (1.5-5.0); GRAN # 6.76 (1.4-6.5); GRAN % 68.6 % (50.0-68.0); HEMOGLOBIN 9.5 g/dL (14.0-18.0); LYMPH # 2.1 (1.2-3.4); MEAN CELL VOLUME 75.1 fl (80.0-105.0); MEAN CORPUSCULAR HEMOGLOBIN 23.7 pg (25.0-35.0); MEAN CORPUSCULAR HGB CONC 31.6 g/dl (31.0-37.0); MEAN PLATELET VOLUME 9.1 fl (7.0-11.0); MONO # 0.8 (0.1-0.6); MONO % 8.2 % (1.0-6.0); RBC 4.01 10^6/uL (3.5-6.1); RED CELL DISTRIBUTION WIDTH 15.7 % (11.5-14.5); WHITE BLOOD COUNT 9.9 10^3/ul (4.5-11.0)
[2018-06-14 06:48] LABS: ALB/GLOB RATIO 1.1 (1.1-1.8); ALBUMIN 3.7 g/dL (3.0-4.8); ALT/SGPT 23 U/L (7-56); AST/SGOT 34 U/L (17-59); BLOOD UREA NITROGEN 23 mg/dL (7-21); CALCIUM 9.3 mg/dL (8.4-10.5); GFR NON-AFRICAN AMERICAN > 60
[2018-06-14] MEDS: Insulin Lispro (humaLOG) LOW Coverage SC SCH ×4 (07:57→22:23)
[2018-06-14] MEDS: Ferrous Sulfate 300 mg/5 mL Liq UD PO SCH ×2 (09:21→17:50)
[2018-06-14] MEDS: Collagenase 250 Units/gm Ointment(30 gm) TOP SCH (09:23)
[2018-06-14] MEDS: Mupirocin 2% Ointment 15 GM TUBE TOP SCH ×2 (09:23→17:51)
--- NOTE | 2018-06-14 15:02 | PN ---
Copied To: Daniel Torres MD Attending MD: Daniel Torres MD DATE: 06/14/2018 SUBJECTIVE: The patient is in bed, in no acute distress, nontoxic. PHYSICAL EXAMINATION: VITAL SIGNS: On exam, temperature is 98, blood pressure is 115/50, respiratory 20, heart rate of 89. HEENT: Examination of HEENT is unremarkable. NECK: Supple. LUNGS: Have decreased breath sounds. HEART: Normal S1, S2. ABDOMEN: Soft, nontender. LABORATORY DATA: Laboratory examination reveals a white count of 9, hemoglobin of 9.5 and chemistries are noted and review of orders reveals the patient is off of antibiotics. ASSESSMENT AND PLAN: A 58-year-old male who was seen earlier this morning, was initially admitted with sepsis with coagulase-negative staph and Strep viridans bacteremia secondary to right gluteal and back cellulitis, found to have liver masses on ultrasound, developed multifocal healthcare-associated pneumonia, influenza A infection. Also, now had an episode of systemic inflammatory response syndrome, currently off of antibiotics, afebrile, has risk for developing nosocomial infections. Daniel Torres MD
--- NOTE | 2018-06-14 15:24 | CP.PCM.PN ---
<Jones Weller - Last Filed: 06/14/18 15:21> Subjective - Date & Time of Evaluation Date of Evaluation: 06/14/18 Time of Evaluation: 10:15 - Subjective Subjective: Jones Weller DO PGY-1, Receiving Supervisor Medicine Progress Note for Dr. Galo Pt seen and examined at bedside this am. Denies any acute compliants, states he feels ok. Tolerating PO diet well. No acute events reported overnight. 12-point ROS obtained, otherwise negative. Objective - Vital Signs/Intake and Output Vital Signs (last 24 hours): Temp Pulse Resp BP Pulse Ox 98.8 F 81 20 115/55 L 96 06/14/18 08:14 06/14/18 09:21 06/14/18 08:14 06/14/18 09:21 06/14/18 08:14 - Medications Medications: Current Medications Aspirin (Aspirin Chewable) 81 mg PO DAILY [facility] Last Admin: 06/14/18 09:21 Dose: 81 mg Atorvastatin Calcium (Lipitor) 20 mg PO DIN [facility] Last Admin: 06/13/18 17:04 Dose: 20 mg Citalopram Hydrobromide (Celexa) 10 mg PO DAILY [facility] Last Admin: 06/14/18 09:21 Dose: 10 mg Collagenase (Santyl) 0 gm TOP DAILY [facility] Last Admin: 06/14/18 09:23 Dose: 1 applic Ferrous Sulfate (Feosol Liq) 300 mg PO BID [facility] Last Admin: 06/14/18 09:21 Dose: 300 mg Insulin Human Lispro (Humalog Low) 0 units SC [facility] PRN Reason: Protocol Last Admin: 06/14/18 14:05 Dose: 1 units Lisinopril (Zestril) 10 mg PO DAILY [facility] Last Admin: 06/14/18 09:21 Dose: 10 mg Metformin HCl (Glucophage) 500 mg PO BID [facility] Last Admin: 06/14/18 09:21 Dose: 500 mg Mupirocin (Bactroban Ointment) 0 gm TOP BID [facility] Last Admin: 06/14/18 09:23 Dose: 1 applic Pantoprazole Sodium (Protonix Ec Tab) 40 mg PO 0600 [facility] Last Admin: 06/14/18 05:43 Dose: 40 mg Thiamine HCl (Vitamin B1 Tab) 100 mg PO DAILY [facility] Last Admin: 06/14/18 09:21 Dose: 100 mg - Labs Labs: 06/14/18 06:00 06/14/18 06:00 PT 12.5 SECONDS (9.4-12.5) 12/09/17 10:00 INR 1.09 (0.93-1.08) H 12/09/17 10:00 APTT 28.3 Seconds (25.1-36.5) 11/30/17 05:30 - Constitutional Appears: Non-toxic, No Acute Distress, Older Than Stated Age - Head Exam Head Exam: ATRAUMATIC, NORMAL INSPECTION - Eye Exam Eye Exam: EOMI, Normal appearance, PERRL - ENT Exam ENT Exam: Mucous Membranes Moist - Neck Exam Neck Exam: Full ROM, Normal Inspection - Respiratory Exam Respiratory Exam: Clear to Ausculation Bilateral, NORMAL BREATHING PATTERN - Cardiovascular Exam Cardiovascular Exam: REGULAR RHYTHM, +S1, +S2 - GI/Abdominal Exam GI & Abdominal Exam: Soft, Normal Bowel Sounds - Extremities Exam Extremities Exam: Full ROM, Normal Capillary Refill, Normal Inspection - Neurological Exam Neurological Exam: Alert, Awake, Oriented x3 - Psychiatric Exam Psychiatric exam: Normal Affect, Normal Mood - Skin Skin Exam: Dry, Intact, Normal Color, Warm Assessment and Plan - Assessment and Plan (Free Text) Assessment: 57 year old male unknown PMHx admitted on 11/29/17 for AMS, right hip cellulitis , multifocal pneumonia, influenza A, strep viridians bacteremia with findings of stroke on MRI - acute vs. 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 Patient was treated for bacteremia with IV abx. Guardianship establishment pending court date; pending for 06/30/2018. Plan: The patient remains to be at his medical and mental baseline at this time. A list of his medical problems and active management can be found below: Anemia Patient with a microcytic anemia Iron level low TIBC wnl Retic count 1.30 Started ferrous sulfate PO BID 05/26 Continue monitoring for constipation given new onset iron supplement Altered mental status At baseline this morning Cont. delirium precautions PT -patient refusing to participate Cont ASA 81 QD / LIPITOR 20 QD Dorsal Right Foot Ulcer Bandaged. Non purulent. Podiatry recommendations appreciated Wound care following On [facility] No antibiotics warranted at this time per ID Coag negative Staphylococcus bacteremia - resolved Last bld clx negative 12/04/17 with completion of 6 week course of antibiotics Monitor WBC, ESR, CRP weekly Echocardiogram unable to rule out vegetations, family is unavailable for consent for TAHIR Colonic mass CT Abd/Pelvis showing colonic mass and hepatic lesions GI consulted: follow recs Flex sig/colonoscopy refused by patient Family unable to be contacted for consent Diabetes mellitus type 2 Cont ISS low Cont Metformin 500mg BID Cont accuchecks Carb consistent diet HTN BP Stable, continue to monitor Cont Lisinopril 10 QD Pressures are currently well controlled without Amlodipine 10 mg PO QD Can resume if pressures increase Leukocytosis - RESOLVED WBC elevated 05/17 Patient srinivasan cultured Blood cx negative x2 after 48H Urine cx w/ multiple species ML contaminated Abd U/S - 7mm common bile duct dilatation and gallstones; Hepatic lesions measuring up to 4.9cm and 3.8 cm; compared to prev abd U/S from 12/05 lesions measured 4.1cm and 3.1cm No RUQ tenderness appreciated on exam; ID following, appreciate reccs Affective disorder Cont Celexa 10mg PO Daily Constipation Colace 100mg BID Miralax 17gm BID Hx ETOH Abuse Cont Thiamine Cont Folic Acid Cont Multivitamin DVT Prophylaxis: SCDs Pt seen, examined with, and plan discussed with Dr. Galo, attending. Jones Weller DO PGY-1, Receiving Supervisor Pager #[phone] <Sixto Galo - Last Filed: 06/27/18 07:29> Objective - Vital Signs/Intake and Output Vital Signs (last 24 hours): Temp Pulse Resp BP Pulse Ox 97.9 F 82 18 105/67 96 06/26/18 18:41 06/26/18 18:41 06/26/18 18:41 06/26/18 18:41 06/26/18 18:41 - Medications Medications: Current Medications Aspirin (Aspirin Chewable) 81 mg PO DAILY [facility] Last Admin: 06/26/18 10:52 Dose: 81 mg Citalopram Hydrobromide (Celexa) 10 mg PO DAILY [facility] Last Admin: 06/26/18 10:53 Dose: 10 mg Collagenase (Santyl) 0 gm TOP DAILY [facility] Last Admin: 06/26/18 10:53 Dose: Not Given Insulin Human Lispro (Humalog Low) 0 units SC [facility] PRN Reason: Protocol Last Admin: 06/26/18 22:10 Dose: Not Given Lisinopril (Zestril) 10 mg PO DAILY [facility] Last Admin: 06/26/18 10:53 Dose: 10 mg Pantoprazole Sodium (Protonix Ec Tab) 40 mg PO 0600 [facility] Last Admin: 06/27/18 05:34 Dose: 40 mg Thiamine HCl (Vitamin B1 Tab) 100 mg PO DAILY [facility] Last Admin: 06/26/18 10:53 Dose: 100 mg - Labs Labs: 06/21/18 06:00 06/21/18 06:00 PT 12.5 SECONDS (9.4-12.5) 12/09/17 10:00 INR 1.09 (0.93-1.08) H 12/09/17 10:00 APTT 28.3 Seconds (25.1-36.5) 11/30/17 05:30 Attending/Attestation - Attestation I have personally seen and examined this patient.: Yes I have fully participated in the care of the patient.: Yes I have reviewed all pertinent clinical information, including history, physical exam and plan: Yes Notes (Text): 57 year old male who was admitted with altered mental status. He was found to have bacteremia, cellulitis and pneumonia for which he has completed antibiotics. He also had CVA. He is on aspirin and statin. Mental status is baseline. Podiatry is following for foot ulceration. No acute issues overnight. No new complaints. He is pending placement/guardianship. Court date is 06/30/18. Sixto Galo MD Hospitalist.
--- NOTE | 2018-06-14 16:45 | PN ---
Copied To: Raciel Davis DPM Attending MD: Raciel Davis DPM DATE: 06/14/2018 SUBJECTIVE: A 58-year-old male, seen at bedside for continued evaluation and management of a right anterior ankle ulceration. The patient is resting comfortably and offers no new complaints. He has been afebrile and denies any nausea, vomiting, chills or shortness of breath. The patient's vital signs revealed a temperature of 98.8, pulse rate of 81, blood pressure of 115/55, respiratory rate of 20. Laboratory findings reveal white count of 9.9, hemoglobin of 9.5, hematocrit of 30.1, platelet count of 414. OBJECTIVE: Weakly palpable pedal pulses noted bilaterally. Capillary filling time is delayed x10. Temperature gradient is within normal limits. Gross sensation intact bilaterally. The patient presents with a resolving ulceration on the anterior aspect of the right ankle that now measures 1.5 cm x 1 cm. Base of the ulcer is primarily granular. There is noted to be minimal serous drainage. There is no purulence. There is no probing to tendon or bone. There is no malodor. No signs of underlying abscess formation. The abrasion that was located on the left anterior ankle is now resolved. ASSESSMENT: A 58-year-old male with right anterior diabetic ankle ulceration. PLAN: The patient was seen and evaluated at bedside. The wound was cleansed with normal sterile saline. We will continue to apply a small amount of Bactroban ointment and Optifoam to the wound. The patient will be seen and followed daily. No surgical intervention is warranted at this time. Raciel Davis DPM
[2018-06-15] MEDS: Pantoprazole 40 mg EC Tab PO SCH (05:34)
[2018-06-15] MEDS: Insulin Lispro (humaLOG) LOW Coverage SC SCH ×4 (08:10→21:38)
--- NOTE | 2018-06-15 08:42 | CP.PCM.PN ---
Subjective - Date & Time of Evaluation Date of Evaluation: 06/15/18 Time of Evaluation: 07:45 - Subjective Subjective: Jones Weller DO PGY-1, [employer] Courtesy Clerk Medicine Progress Note for Dr. Turner Pt seen and examined at bedside this am. Denies any acute complaints, resting comfortably. No acute events reported overnight. 12-point ROS obtained, otherwise neg as per patient. Objective - Vital Signs/Intake and Output Vital Signs (last 24 hours): Temp Pulse Resp BP Pulse Ox 97.6 F 91 H 18 106/72 97 06/15/18 06:00 06/15/18 06:00 06/15/18 06:00 06/15/18 06:00 06/15/18 06:00 - Medications Medications: Current Medications Aspirin (Aspirin Chewable) 81 mg PO DAILY [facility] Last Admin: 06/14/18 09:21 Dose: 81 mg Atorvastatin Calcium (Lipitor) 20 mg PO DIN [facility] Last Admin: 06/14/18 17:50 Dose: 20 mg Citalopram Hydrobromide (Celexa) 10 mg PO DAILY [facility] Last Admin: 06/14/18 09:21 Dose: 10 mg Collagenase (Santyl) 0 gm TOP DAILY [facility] Last Admin: 06/14/18 09:23 Dose: 1 applic Ferrous Sulfate (Feosol Liq) 300 mg PO BID [facility] Last Admin: 06/14/18 17:50 Dose: 300 mg Insulin Human Lispro (Humalog Low) 0 units SC ACHS [facility] PRN Reason: Protocol Last Admin: 06/14/18 22:23 Dose: Not Given Lisinopril (Zestril) 10 mg PO DAILY [facility] Last Admin: 06/14/18 09:21 Dose: 10 mg Metformin HCl (Glucophage) 500 mg PO BID [facility] Last Admin: 06/14/18 17:50 Dose: 500 mg Mupirocin (Bactroban Ointment) 0 gm TOP BID [facility] Last Admin: 06/14/18 17:51 Dose: 1 applic Pantoprazole Sodium (Protonix Ec Tab) 40 mg PO 0600 [facility] Last Admin: 06/15/18 05:34 Dose: 40 mg Thiamine HCl (Vitamin B1 Tab) 100 mg PO DAILY [facility] Last Admin: 06/14/18 09:21 Dose: 100 mg - Labs Labs: 06/14/18 06:00 06/14/18 06:00 PT 12.5 SECONDS (9.4-12.5) 12/09/17 10:00 INR 1.09 (0.93-1.08) H 12/09/17 10:00 APTT 28.3 Seconds (25.1-36.5) 11/30/17 05:30 - Constitutional Appears: Non-toxic, No Acute Distress - Head Exam Head Exam: ATRAUMATIC, NORMAL INSPECTION - Eye Exam Eye Exam: EOMI, Normal appearance, PERRL - ENT Exam ENT Exam: Mucous Membranes Moist, Normal Oropharynx - Neck Exam Neck Exam: Full ROM, Normal Inspection - Respiratory Exam Respiratory Exam: Clear to Ausculation Bilateral, NORMAL BREATHING PATTERN - Cardiovascular Exam Cardiovascular Exam: REGULAR RHYTHM, +S1, +S2 - GI/Abdominal Exam GI & Abdominal Exam: Soft, Normal Bowel Sounds. absent: Tenderness - Extremities Exam Extremities Exam: Full ROM, Normal Capillary Refill, Normal Inspection - Back Exam Back Exam: Full ROM, NORMAL INSPECTION - Neurological Exam Neurological Exam: Alert, Awake, Oriented x3 - Skin Skin Exam: Dry, Intact, Normal Color, Warm Assessment and Plan - Assessment and Plan (Free Text) Assessment: 57 year old male unknown PMHx admitted on 11/29/17 for AMS, right hip cellulitis, multifocal pneumonia, influenza A, strep viridians bacteremia with findings of stroke on MRI - acute vs. 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 Patient was treated for bacteremia with IV abx. Guardianship establishment pending court date; pending for 06/30/2018. Plan: The patient remains to be at his medical and mental baseline at this time. A list of his medical problems and active management can be found below: Anemia Patient with a microcytic anemia Iron level low TIBC wnl Retic count 1.30 Started ferrous sulfate PO BID 05/26 Continue monitoring for constipation given new onset iron supplement Altered mental status At baseline this morning Cont. delirium precautions PT -patient refusing to participate Cont ASA 81 QD / LIPITOR 20 QD Dorsal Right Foot Ulcer Bandaged. Non purulent. Podiatry recommendations appreciated Wound care following On [facility] No antibiotics warranted at this time per ID Coag negative Staphylococcus bacteremia - resolved Last bld clx negative 12/04/17 with completion of 6 week course of antibiotics Monitor WBC, ESR, CRP weekly Echocardiogram unable to rule out vegetations, family is unavailable for consent for TAHIR Colonic mass CT Abd/Pelvis showing colonic mass and hepatic lesions GI consulted: follow recs Flex sig/colonoscopy refused by patient Family unable to be contacted for consent Diabetes mellitus type 2 Cont ISS low Cont Metformin 500mg BID Cont accuchecks Carb consistent diet HTN BP Stable, continue to monitor Cont Lisinopril 10 QD Pressures are currently well controlled without Amlodipine 10 mg PO QD Can resume if pressures increase Leukocytosis - RESOLVED WBC elevated 05/17 Patient srinivasan cultured Blood cx negative x2 after 48H Urine cx w/ multiple species ML contaminated Abd U/S - 7mm common bile duct dilatation and gallstones; Hepatic lesions measuring up to 4.9cm and 3.8 cm; compared to prev abd U/S from 12/05 lesions measured 4.1cm and 3.1cm No RUQ tenderness appreciated on exam; ID following, appreciate reccs Affective disorder Cont Celexa 10mg PO Daily Constipation Colace 100mg BID Miralax 17gm BID Hx ETOH Abuse Cont Thiamine Cont Folic Acid Cont Multivitamin DVT Prophylaxis: SCDs Pt seen, examined with, and plan discussed with Dr. Turner, attending. Jones Weller DO PGY-1, [employer] Court[employer] Clerk Pager #[phone]
[2018-06-15] MEDS: Ferrous Sulfate 300 mg/5 mL Liq UD PO SCH ×2 (10:09→18:56)
[2018-06-15] MEDS: Mupirocin 2% Ointment 15 GM TUBE TOP SCH ×2 (10:13→18:57)
[2018-06-15] MEDS: Collagenase 250 Units/gm Ointment(30 gm) TOP SCH (10:13)
--- NOTE | 2018-06-15 15:27 | CP.PCM.PN ---
<Vickie Vang - Last Filed: 06/15/18 15:24> Subjective - Date & Time of Evaluation Date of Evaluation: 06/15/18 Time of Evaluation: 11:00 - Subjective Subjective: Podiatry Progress Note - Drs. Oakley/Susan 58M seen and evaluated this AM for right anterior ankle ulcer and left ankle abrasion. Patient resting comfortably, NAD. No acute events overnight. No new complaints to ankle wounds b/l. Dressings remain clean/dry/intact. Denies N/V/F/ D/C/SOB. Objective - Vital Signs/Intake and Output Vital Signs (last 24 hours): Temp Pulse Resp BP Pulse Ox 97.6 F 91 H 18 106/72 97 06/15/18 06:00 06/15/18 10:08 06/15/18 06:00 06/15/18 10:08 06/15/18 06:00 - Medications Medications: Current Medications Aspirin (Aspirin Chewable) 81 mg PO DAILY [facility] Last Admin: 06/15/18 10:08 Dose: 81 mg Atorvastatin Calcium (Lipitor) 20 mg PO DIN [facility] Last Admin: 06/14/18 17:50 Dose: 20 mg Citalopram Hydrobromide (Celexa) 10 mg PO DAILY [facility] Last Admin: 06/15/18 10:08 Dose: 10 mg Collagenase (Santyl) 0 gm TOP DAILY [facility] Last Admin: 06/15/18 10:13 Dose: 1 applic Ferrous Sulfate (Feosol Liq) 300 mg PO BID [facility] Last Admin: 06/15/18 10:09 Dose: 300 mg Insulin Human Lispro (Humalog Low) 0 units SC [facility] PRN Reason: Protocol Last Admin: 06/15/18 13:17 Dose: Not Given Lisinopril (Zestril) 10 mg PO DAILY [facility] Last Admin: 06/15/18 10:08 Dose: 10 mg Metformin HCl (Glucophage) 500 mg PO BID [facility] Last Admin: 06/15/18 10:08 Dose: 500 mg Mupirocin (Bactroban Ointment) 0 gm TOP BID [facility] Last Admin: 06/15/18 10:13 Dose: 1 applic Pantoprazole Sodium (Protonix Ec Tab) 40 mg PO 0600 [facility] Last Admin: 06/15/18 05:34 Dose: 40 mg Thiamine HCl (Vitamin B1 Tab) 100 mg PO DAILY [facility] Last Admin: 06/15/18 10:09 Dose: 100 mg - Labs Labs: 06/14/18 06:00 06/14/18 06:00 PT 12.5 SECONDS (9.4-12.5) 12/09/17 10:00 INR 1.09 (0.93-1.08) H 12/09/17 10:00 APTT 28.3 Seconds (25.1-36.5) 11/30/17 05:30 - Constitutional Appears: Well, Non-toxic, No Acute Distress - Extremities Exam Additional comments: Bilateral lower extremity physical exam: Vasc: DP and PT pulses weakly palpable 1/4 b/l. CFT delayed >3 seconds x10. Temperature gradient warm to warm b/l. No edema noted. Neuro: Gross sensation intact bilaterally. Derm: Linear ulceration noted to anterior aspect of right ankle measuring approximately 2 x 1 cm with overlying soft eschar; no periwound noted; no drainage; no purulence; no fluctuance; no malodor; no clinical signs of infection noted. Pinpoint abrasion noted to left anterior ankle; no drainage; no purulence; no flucutance; no clinical sings of infection noted. Ortho: No pain on palpation noted to lower extremities. No calf pain or tenderness appreciated. - Neurological Exam Neurological Exam: Alert, Awake, Oriented x3 - Psychiatric Exam Psychiatric exam: Normal Affect, Normal Mood Assessment and Plan - Assessment and Plan (Free Text) Assessment: 58M with right anterior ankle ulceration and left ankle abrasion Plan: Patient seen and evaluated at bedside Discussed with attending, Dr. Oakley Continue local wound care: -RLE bactroban, optifoam -LLE optifoam Wounds stable from podiatry standpoint No plan for surgical intervention at this time Podiatry will follow <Ivania Oakley - Last Filed: 06/19/18 18:41> Objective - Vital Signs/Intake and Output Vital Signs (last 24 hours): Temp Pulse Resp BP Pulse Ox 98.3 F 86 20 107/69 94 L 06/19/18 16:42 06/19/18 16:42 06/19/18 16:42 06/19/18 16:42 06/19/18 16:42 Intake and Output: 06/19/18 06/19/18 06:59 18:59 Intake Total 50 Balance 50 - Medications Medications: Current Medications Aspirin (Aspirin Chewable) 81 mg PO DAILY [facility] Last Admin: 06/19/18 10:20 Dose: 81 mg Citalopram Hydrobromide (Celexa) 10 mg PO DAILY [facility] Last Admin: 06/19/18 10:21 Dose: 10 mg Collagenase (Santyl) 0 gm TOP DAILY [facility] Last Admin: 06/19/18 10:23 Dose: 1 applic Insulin Human Lispro (Humalog Low) 0 units SC [facility] PRN Reason: Protocol Last Admin: 06/19/18 17:47 Dose: 1 units Lisinopril (Zestril) 10 mg PO DAILY [facility] Last Admin: 06/19/18 10:21 Dose: Not Given Pantoprazole Sodium (Protonix Ec Tab) 40 mg PO 0600 [facility] Last Admin: 06/19/18 05:53 Dose: 40 mg Thiamine HCl (Vitamin B1 Tab) 100 mg PO DAILY [facility] Last Admin: 06/19/18 10:20 Dose: 100 mg - Labs Labs: 06/16/18 10:30 06/14/18 06:00 PT 12.5 SECONDS (9.4-12.5) 12/09/17 10:00 INR 1.09 (0.93-1.08) H 12/09/17 10:00 APTT 28.3 Seconds (25.1-36.5) 11/30/17 05:30 Attending/Attestation - Attestation I have personally seen and examined this patient.: Yes I have fully participated in the care of the patient.: Yes I have reviewed all pertinent clinical information, including history, physical exam and plan: Yes
--- NOTE | 2018-06-15 22:32 | PN ---
Copied To: Daniel Torres MD Attending MD: Daniel Torres MD DATE: 06/15/2018 SUBJECTIVE: The patient is seen earlier this morning. No fevers. No chills. PHYSICAL EXAMINATION: VITAL SIGNS: Temperature is 98, blood pressure is 120/70, respiratory rate of 16. HEENT: Examination of HEENT is unremarkable. NECK: Supple. LUNGS: Have decreased breath sounds. HEART: Normal S1 and S2. ABDOMEN: Soft. LABORATORY DATA: Laboratory examination is reviewed. ASSESSMENT AND PLAN: This is a 57-year-old male who was seen early this morning, who was initially admitted with coagulase-negative Staphylococcus and Streptococcus viridans bacteremia secondary to gluteal and back cellulitis, found to have liver mass on ultrasound, who developed multifocal pneumonia, healthcare associated, also had influenza A infection. Currently, now off of antibiotics, afebrile. Did have an episode of systemic inflammatory response syndrome. Repeat cultures negative. No evidence of infection. The patient is at risk for developing nosocomial infections. Daniel Torres MD
[2018-06-16] MEDS: Pantoprazole 40 mg EC Tab PO SCH (05:00)
--- NOTE | 2018-06-16 09:36 | CP.PCM.PN ---
<Jones Weller - Last Filed: 06/16/18 13:39> Subjective - Date & Time of Evaluation Date of Evaluation: 06/16/18 Time of Evaluation: 07:35 - Subjective Subjective: Jones Weller DO PGY-1, Policy Services Representative Medicine Progress Note Pt seen and examined at bedside. No acute events reported overnight. Pt states that he feels well, denies any acute complaints. 12-point ROS obtained, otherwise negative as per patient. Voiding and pos BM without concerns. Tolerating PO diet well. Objective - Vital Signs/Intake and Output Vital Signs (last 24 hours): Temp Pulse Resp BP Pulse Ox 97.9 F 93 H 20 105/69 99 06/16/18 07:52 06/16/18 07:52 06/16/18 07:52 06/16/18 07:52 06/16/18 07:52 Intake and Output: 06/16/18 06/16/18 06:59 18:59 Intake Total 1200 Balance 1200 - Medications Medications: Current Medications Aspirin (Aspirin Chewable) 81 mg PO DAILY [facility] Last Admin: 06/15/18 10:08 Dose: 81 mg Atorvastatin Calcium (Lipitor) 20 mg PO DIN [facility] Last Admin: 06/15/18 18:57 Dose: 20 mg Citalopram Hydrobromide (Celexa) 10 mg PO DAILY [facility] Last Admin: 06/15/18 10:08 Dose: 10 mg Collagenase (Santyl) 0 gm TOP DAILY [facility] Last Admin: 06/15/18 10:13 Dose: 1 applic Ferrous Sulfate (Feosol Liq) 300 mg PO BID [facility] Last Admin: 06/15/18 18:56 Dose: 300 mg Insulin Human Lispro (Humalog Low) 0 units SC [facility] PRN Reason: Protocol Last Admin: 06/15/18 21:38 Dose: Not Given Lisinopril (Zestril) 10 mg PO DAILY [facility] Last Admin: 06/15/18 10:08 Dose: 10 mg Metformin HCl (Glucophage) 500 mg PO BID [facility] Last Admin: 06/15/18 18:57 Dose: 500 mg Mupirocin (Bactroban Ointment) 0 gm TOP BID [facility] Last Admin: 06/15/18 18:57 Dose: 1 applic Pantoprazole Sodium (Protonix Ec Tab) 40 mg PO 0600 [facility] Last Admin: 06/16/18 05:00 Dose: 40 mg Thiamine HCl (Vitamin B1 Tab) 100 mg PO DAILY [facility] Last Admin: 06/15/18 10:09 Dose: 100 mg - Labs Labs: 06/14/18 06:00 06/14/18 06:00 PT 12.5 SECONDS (9.4-12.5) 12/09/17 10:00 INR 1.09 (0.93-1.08) H 12/09/17 10:00 APTT 28.3 Seconds (25.1-36.5) 11/30/17 05:30 - Constitutional Appears: Non-toxic, No Acute Distress - Head Exam Head Exam: ATRAUMATIC, NORMAL INSPECTION - Eye Exam Eye Exam: EOMI, Normal appearance, PERRL - ENT Exam ENT Exam: Mucous Membranes Moist, Normal Oropharynx - Respiratory Exam Respiratory Exam: Clear to Ausculation Bilateral, NORMAL BREATHING PATTERN - Cardiovascular Exam Cardiovascular Exam: REGULAR RHYTHM, +S1, +S2 - GI/Abdominal Exam GI & Abdominal Exam: Soft, Normal Bowel Sounds - Extremities Exam Extremities Exam: Full ROM, Normal Capillary Refill, Normal Inspection - Skin Skin Exam: Dry, Intact, Warm Assessment and Plan - Assessment and Plan (Free Text) Assessment: 57 year old male unknown PMHx admitted on 11/29/17 for AMS, right hip cellulitis , multifocal pneumonia, influenza A, strep viridians bacteremia with findings of stroke on MRI - acute vs. 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 Patient was treated for bacteremia with IV abx. Guardianship establishment pending court date; pending for 06/30/2018. Plan: The patient remains to be at his medical and mental baseline at this time. A list of his medical problems and active management can be found below: Anemia Patient with a microcytic anemia Iron level low TIBC wnl Retic count 1.30 Started ferrous sulfate PO BID 05/26 Continue monitoring for constipation given new onset iron supplement Altered mental status At baseline this morning Cont. delirium precautions PT -patient refusing to participate Cont ASA 81 QD / LIPITOR 20 QD Dorsal Right Foot Ulcer Bandaged. Non purulent. Podiatry recommendations appreciated Wound care following On [facility] No antibiotics warranted at this time per ID Coag negative Staphylococcus bacteremia - resolved Last bld clx negative 12/04/17 with completion of 6 week course of antibiotics Monitor WBC, ESR, CRP weekly Echocardiogram unable to rule out vegetations, family is unavailable for consent for TAHIR Colonic mass CT Abd/Pelvis showing colonic mass and hepatic lesions GI consulted: follow recs Flex sig/colonoscopy refused by patient Family unable to be contacted for consent Diabetes mellitus type 2 Cont ISS low Cont Metformin 500mg BID Cont accuchecks Carb consistent diet HTN BP Stable, continue to monitor Cont Lisinopril 10 QD Pressures are currently well controlled without Amlodipine 10 mg PO QD Can resume if pressures increase Leukocytosis - RESOLVED WBC elevated 05/17 Patient srinivasan cultured Blood cx negative x2 after 48H Urine cx w/ multiple species ML contaminated Abd U/S - 7mm common bile duct dilatation and gallstones; Hepatic lesions measuring up to 4.9cm and 3.8 cm; compared to prev abd U/S from 12/05 lesions measured 4.1cm and 3.1cm No RUQ tenderness appreciated on exam; ID following, appreciate reccs Affective disorder Cont Celexa 10mg PO Daily Constipation Colace 100mg BID Miralax 17gm BID Hx ETOH Abuse Cont Thiamine Cont Folic Acid Cont Multivitamin DVT Prophylaxis: SCDs Pt seen, examined with, and plan discussed with Dr. Akins, attending. Jones Weller DO PGY-1, Policy Services Representative Pager #[phone] <Karen Akins - Last Filed: 06/16/18 16:01> Objective - Vital Signs/Intake and Output Vital Signs (last 24 hours): Temp Pulse Resp BP Pulse Ox 97.9 F 93 H 20 105/69 99 06/16/18 07:52 06/16/18 10:02 06/16/18 07:52 06/16/18 10:02 06/16/18 07:52 Intake and Output: 06/16/18 06/16/18 06:59 18:59 Intake Total 1200 Balance 1200 - Medications Medications: Current Medications Aspirin (Aspirin Chewable) 81 mg PO DAILY [facility] Last Admin: 06/16/18 09:59 Dose: 81 mg Atorvastatin Calcium (Lipitor) 20 mg PO DIN [facility] Last Admin: 06/15/18 18:57 Dose: 20 mg Citalopram Hydrobromide (Celexa) 10 mg PO DAILY [facility] Last Admin: 06/16/18 10:00 Dose: 10 mg Collagenase (Santyl) 0 gm TOP DAILY [facility] Last Admin: 06/16/18 10:01 Dose: Not Given Ferrous Sulfate (Feosol Liq) 300 mg PO BID [facility] Last Admin: 06/16/18 10:00 Dose: 300 mg Insulin Human Lispro (Humalog Low) 0 units SC [facility] PRN Reason: Protocol Last Admin: 06/16/18 12:19 Dose: 1 units Lisinopril (Zestril) 10 mg PO DAILY [facility] Last Admin: 06/16/18 10:02 Dose: 10 mg Metformin HCl (Glucophage) 500 mg PO BID [facility] Last Admin: 06/16/18 10:00 Dose: 500 mg Mupirocin (Bactroban Ointment) 0 gm TOP BID [facility] Last Admin: 06/16/18 09:59 Dose: 1 applic Pantoprazole Sodium (Protonix Ec Tab) 40 mg PO 0600 [facility] Last Admin: 06/16/18 05:00 Dose: 40 mg Thiamine HCl (Vitamin B1 Tab) 100 mg PO DAILY [facility] Last Admin: 06/16/18 10:01 Dose: 100 mg - Labs Labs: 06/16/18 10:30 06/14/18 06:00 PT 12.5 SECONDS (9.4-12.5) 12/09/17 10:00 INR 1.09 (0.93-1.08) H 12/09/17 10:00 APTT 28.3 Seconds (25.1-36.5) 11/30/17 05:30 Attending/Attestation - Attestation I have personally seen and examined this patient.: Yes I have fully participated in the care of the patient.: Yes I have reviewed all pertinent clinical information, including history, physical exam and plan: Yes
[2018-06-16] MEDS: Mupirocin 2% Ointment 15 GM TUBE TOP SCH ×2 (09:59→17:37)
[2018-06-16] MEDS: Ferrous Sulfate 300 mg/5 mL Liq UD PO SCH ×2 (10:00→17:38)
[2018-06-16] MEDS: Collagenase 250 Units/gm Ointment(30 gm) TOP SCH (10:01)
[2018-06-16] MEDS: Insulin Lispro (humaLOG) LOW Coverage SC SCH ×4 (10:01→23:10)
[2018-06-16 10:50] LABS: HEMOGLOBIN 8.9 g/dL (14.0-18.0)
--- NOTE | 2018-06-16 12:13 | PN ---
Copied To: Daniel Torres MD Attending MD: Daniel Torres MD DATE: 06/16/2018 SUBJECTIVE: The patient is in bed, in no acute distress. PHYSICAL EXAMINATION: VITAL SIGNS: Temperature of 98, blood pressure is 105/60, respiratory rate of 16. HEENT: Examination of HEENT is unremarkable. NECK: Supple. LUNGS: Have decreased breath sounds. HEART: Normal S1, S2. ABDOMEN: Soft. LABORATORY DATA: Laboratory examination is noted. White count of 9.9. Chemistries are reviewed. ASSESSMENT AND PLAN: A 58-year-old male, seen earlier today, who was initially admitted with coag-negative Staphylococcus bacteremia, Streptococcus bacteremia secondary to gluteal and back cellulitis, found to have liver mass on ultrasound and multifocal pneumonia, pneumonia, also had influenza A. Currently off of antibiotics, afebrile. The patient is at risk for developing nosocomial infections. Daniel Torres MD
[2018-06-17] MEDS: Pantoprazole 40 mg EC Tab PO SCH (05:11)
[2018-06-17] MEDS: Insulin Lispro (humaLOG) LOW Coverage SC SCH ×4 (07:29→22:02)
--- NOTE | 2018-06-17 07:56 | CP.PCM.PN ---
<Jones Weller - Last Filed: 06/17/18 12:01> Subjective - Date & Time of Evaluation Date of Evaluation: 06/17/18 Time of Evaluation: 07:15 - Subjective Subjective: Jones Weller DO PGY-1, [employer] Operator Medicine Progress Note Pt seen and examined at bedside. Denies any acute complaints, no acute events reported overnight by field staff. 12-point ROS obtained, otherwise neg. Tolerating PO diet well. No issues with voiding, normal BMs. Objective - Vital Signs/Intake and Output Vital Signs (last 24 hours): Temp Pulse Resp BP Pulse Ox 98.3 F 84 19 102/62 96 06/16/18 16:54 06/16/18 16:54 06/16/18 16:54 06/16/18 16:54 06/16/18 16:54 Intake and Output: 06/17/18 06/17/18 06:59 18:59 Intake Total 240 Balance 240 - Medications Medications: Current Medications Aspirin (Aspirin Chewable) 81 mg PO DAILY [facility] Last Admin: 06/16/18 09:59 Dose: 81 mg Atorvastatin Calcium (Lipitor) 20 mg PO DIN [facility] Last Admin: 06/16/18 17:39 Dose: 20 mg Citalopram Hydrobromide (Celexa) 10 mg PO DAILY [facility] Last Admin: 06/16/18 10:00 Dose: 10 mg Collagenase (Santyl) 0 gm TOP DAILY [facility] Last Admin: 06/16/18 10:01 Dose: Not Given Ferrous Sulfate (Feosol Liq) 300 mg PO BID [facility] Last Admin: 06/16/18 17:38 Dose: 300 mg Insulin Human Lispro (Humalog Low) 0 units SC [facility] PRN Reason: Protocol Last Admin: 06/17/18 07:29 Dose: Not Given Lisinopril (Zestril) 10 mg PO DAILY [facility] Last Admin: 06/16/18 10:02 Dose: 10 mg Metformin HCl (Glucophage) 500 mg PO BID [facility] Last Admin: 06/16/18 17:38 Dose: 500 mg Mupirocin (Bactroban Ointment) 0 gm TOP BID [facility] Last Admin: 06/16/18 17:37 Dose: 1 applic Pantoprazole Sodium (Protonix Ec Tab) 40 mg PO 0600 [facility] Last Admin: 06/17/18 05:11 Dose: 40 mg Thiamine HCl (Vitamin B1 Tab) 100 mg PO DAILY [facility] Last Admin: 06/16/18 10:01 Dose: 100 mg - Labs Labs: 06/16/18 10:30 06/14/18 06:00 PT 12.5 SECONDS (9.4-12.5) 12/09/17 10:00 INR 1.09 (0.93-1.08) H 12/09/17 10:00 APTT 28.3 Seconds (25.1-36.5) 11/30/17 05:30 - Constitutional Appears: Non-toxic, No Acute Distress - Head Exam Head Exam: ATRAUMATIC, NORMAL INSPECTION - Eye Exam Eye Exam: EOMI, Normal appearance, PERRL - ENT Exam ENT Exam: Mucous Membranes Moist, Normal Oropharynx - Respiratory Exam Respiratory Exam: Clear to Ausculation Bilateral, NORMAL BREATHING PATTERN - Cardiovascular Exam Cardiovascular Exam: REGULAR RHYTHM, +S1, +S2 - GI/Abdominal Exam GI & Abdominal Exam: Soft, Normal Bowel Sounds. absent: Tenderness - Extremities Exam Extremities Exam: Full ROM, Normal Capillary Refill, Normal Inspection - Neurological Exam Neurological Exam: Alert, Awake, CN II-XII Intact, Oriented x3 Assessment and Plan - Assessment and Plan (Free Text) Assessment: 57 year old male unknown PMHx admitted on 11/29/17 for AMS, right hip cellulitis , multifocal pneumonia, influenza A, strep viridians bacteremia with findings of stroke on MRI - acute vs. 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 Patient was treated for bacteremia with IV abx. Guardianship establishment pending court date; pending for 06/30/2018. Plan: The patient remains to be at his medical and mental baseline at this time. A list of his medical problems and active management can be found below: Anemia Patient with a microcytic anemia Iron level low TIBC wnl Retic count 1.30 Started ferrous sulfate PO BID 05/26 Continue monitoring for constipation given new onset iron supplement Altered mental status At baseline this morning Cont. delirium precautions PT -patient refusing to participate Cont ASA 81 QD / LIPITOR 20 QD Dorsal Right Foot Ulcer Bandaged. Non purulent. Podiatry recommendations appreciated Wound care following On [facility] No antibiotics warranted at this time per ID Coag negative Staphylococcus bacteremia - resolved Last bld clx negative 12/04/17 with completion of 6 week course of antibiotics Monitor WBC, ESR, CRP weekly Echocardiogram unable to rule out vegetations, family is unavailable for consent for TAHIR Colonic mass CT Abd/Pelvis showing colonic mass and hepatic lesions GI consulted: follow recs Flex sig/colonoscopy refused by patient Family unable to be contacted for consent Diabetes mellitus type 2 Cont ISS low Cont Metformin 500mg BID Cont accuchecks Carb consistent diet HTN BP Stable, continue to monitor Cont Lisinopril 10 QD Pressures are currently well controlled without Amlodipine 10 mg PO QD Can resume if pressures increase Leukocytosis - RESOLVED WBC elevated 05/17 Patient srinivasan cultured Blood cx negative x2 after 48H Urine cx w/ multiple species ML contaminated Abd U/S - 7mm common bile duct dilatation and gallstones; Hepatic lesions measuring up to 4.9cm and 3.8 cm; compared to prev abd U/S from 12/05 lesions measured 4.1cm and 3.1cm No RUQ tenderness appreciated on exam; ID following, appreciate reccs Affective disorder Cont Celexa 10mg PO Daily Constipation Colace 100mg BID Miralax 17gm BID Hx ETOH Abuse Cont Thiamine Cont Folic Acid Cont Multivitamin DVT Prophylaxis: SCDs Pt seen, examined with, and plan discussed with Dr. Akins, attending. Jones Weller DO PGY-1, [employer] Operator Pager #[phone] <Karen Akins - Last Filed: 06/18/18 19:03> Objective - Vital Signs/Intake and Output Vital Signs (last 24 hours): Temp Pulse Resp BP Pulse Ox 98.6 F 92 H 20 102/61 96 06/18/18 16:13 06/18/18 16:13 06/18/18 16:13 06/18/18 16:13 06/18/18 16:13 - Medications Medications: Current Medications Aspirin (Aspirin Chewable) 81 mg PO DAILY [facility] Last Admin: 06/18/18 09:22 Dose: 81 mg Citalopram Hydrobromide (Celexa) 10 mg PO DAILY [facility] Last Admin: 06/18/18 09:22 Dose: 10 mg Collagenase (Santyl) 0 gm TOP DAILY [facility] Last Admin: 06/18/18 12:23 Dose: 1 applic Insulin Human Lispro (Humalog Low) 0 units SC ACHS [facility] PRN Reason: Protocol Last Admin: 06/18/18 16:13 Dose: Not Given Lisinopril (Zestril) 10 mg PO DAILY [facility] Last Admin: 06/18/18 09:21 Dose: 10 mg Pantoprazole Sodium (Protonix Ec Tab) 40 mg PO 0600 [facility] Last Admin: 06/18/18 05:33 Dose: 40 mg Thiamine HCl (Vitamin B1 Tab) 100 mg PO DAILY [facility] Last Admin: 06/18/18 09:22 Dose: 100 mg - Labs Labs: 06/16/18 10:30 06/14/18 06:00 PT 12.5 SECONDS (9.4-12.5) 12/09/17 10:00 INR 1.09 (0.93-1.08) H 12/09/17 10:00 APTT 28.3 Seconds (25.1-36.5) 11/30/17 05:30 Attending/Attestation - Attestation I have personally seen and examined this patient.: Yes I have fully participated in the care of the patient.: Yes I have reviewed all pertinent clinical information, including history, physical exam and plan: Yes
[2018-06-17] MEDS: Mupirocin 2% Ointment 15 GM TUBE TOP SCH ×2 (09:49→17:07)
[2018-06-17] MEDS: Ferrous Sulfate 300 mg/5 mL Liq UD PO SCH ×2 (09:50→17:08)
[2018-06-17] MEDS: Collagenase 250 Units/gm Ointment(30 gm) TOP SCH (09:51)
--- NOTE | 2018-06-17 14:07 | CP.PCM.PN ---
<Vickie Vang - Last Filed: 06/17/18 14:05> Subjective - Date & Time of Evaluation Date of Evaluation: 06/17/18 Time of Evaluation: 14:05 - Subjective Subjective: Podiatry Progress Note - Drs. Oakley/Susan 58M seen and evaluated this AM for right anterior ankle ulcer and left ankle abrasion. Patient resting comfortably, hemodynamically stable and NAD. No acute events overnight. Offers no new complaints. Dressings remain clean/dry/intact. Denies N/V/F/D/C/SOB. Objective - Vital Signs/Intake and Output Vital Signs (last 24 hours): Temp Pulse Resp BP Pulse Ox 97.5 F L 88 20 104/67 98 06/17/18 08:16 06/17/18 09:52 06/17/18 08:16 06/17/18 09:52 06/17/18 08:16 Intake and Output: 06/17/18 06/17/18 06:59 18:59 Intake Total 240 Balance 240 - Medications Medications: Current Medications Aspirin (Aspirin Chewable) 81 mg PO DAILY [facility] Last Admin: 06/17/18 09:48 Dose: 81 mg Atorvastatin Calcium (Lipitor) 20 mg PO DIN [facility] Last Admin: 06/16/18 17:39 Dose: 20 mg Citalopram Hydrobromide (Celexa) 10 mg PO DAILY [facility] Last Admin: 06/17/18 09:49 Dose: 10 mg Collagenase (Santyl) 0 gm TOP DAILY [facility] Last Admin: 06/17/18 09:51 Dose: 1 applic Ferrous Sulfate (Feosol Liq) 300 mg PO BID [facility] Last Admin: 06/17/18 09:50 Dose: 300 mg Insulin Human Lispro (Humalog Low) 0 units SC [facility] PRN Reason: Protocol Last Admin: 06/17/18 12:00 Dose: 1 units Lisinopril (Zestril) 10 mg PO DAILY [facility] Last Admin: 06/17/18 09:52 Dose: 10 mg Metformin HCl (Glucophage) 500 mg PO BID [facility] Last Admin: 06/17/18 09:50 Dose: 500 mg Mupirocin (Bactroban Ointment) 0 gm TOP BID [facility] Last Admin: 06/17/18 09:49 Dose: 1 applic Pantoprazole Sodium (Protonix Ec Tab) 40 mg PO 0600 [facility] Last Admin: 06/17/18 05:11 Dose: 40 mg Thiamine HCl (Vitamin B1 Tab) 100 mg PO DAILY [facility] Last Admin: 06/17/18 09:52 Dose: 100 mg - Labs Labs: 06/16/18 10:30 06/14/18 06:00 PT 12.5 SECONDS (9.4-12.5) 12/09/17 10:00 INR 1.09 (0.93-1.08) H 12/09/17 10:00 APTT 28.3 Seconds (25.1-36.5) 11/30/17 05:30 - Constitutional Appears: Well, Non-toxic, No Acute Distress - Extremities Exam Additional comments: Bilateral lower extremity physical exam: Vasc: DP and PT pulses weakly palpable 1/4 b/l. CFT delayed >3 seconds x10. Temperature gradient cool to cool b/l. No edema noted. Neuro: Gross sensation intact bilaterally. Derm: Linear ulceration noted to anterior aspect of right ankle measuring approximately 2 x 1 cm mixed fibrogranular base; no periwound erythema noted; no drainage; no purulence; no fluctuance; no malodor; no clinical signs of infection noted. Pinpoint abrasion noted to left anterior ankle with minimal periwound erythema; no drainage; no purulence; no flucutance; no clinical sings of infection noted. Ortho: No pain on palpation noted to lower extremities. No calf pain or tenderness appreciated. - Neurological Exam Neurological Exam: Alert, Awake, Oriented x3 - Psychiatric Exam Psychiatric exam: Normal Affect, Normal Mood Assessment and Plan - Assessment and Plan (Free Text) Assessment: 58M with right anterior ankle ulceration and left ankle abrasion Plan: Patient seen and evaluated at bedside Discussed with attending, Dr. Davis Continue local wound care: -RLE bactroban, optifoam -LLE optifoam Wounds stable from podiatry standpoint No plan for surgical intervention at this time Podiatry will continue to follow <Raciel Davis - Last Filed: 06/17/18 17:41> Objective - Vital Signs/Intake and Output Vital Signs (last 24 hours): Temp Pulse Resp BP Pulse Ox 98.1 F 96 H 19 109/62 98 06/17/18 17:06 06/17/18 17:06 06/17/18 17:06 06/17/18 17:06 06/17/18 17:06 Intake and Output: 06/17/18 06/17/18 06:59 18:59 Intake Total 240 Balance 240 - Medications Medications: Current Medications Aspirin (Aspirin Chewable) 81 mg PO DAILY [facility] Last Admin: 06/17/18 09:48 Dose: 81 mg Citalopram Hydrobromide (Celexa) 10 mg PO DAILY [facility] Last Admin: 06/17/18 09:49 Dose: 10 mg Collagenase (Santyl) 0 gm TOP DAILY [facility] Last Admin: 06/17/18 09:51 Dose: 1 applic Ferrous Sulfate (Feosol Liq) 300 mg PO BID [facility] Last Admin: 06/17/18 17:08 Dose: Not Given Insulin Human Lispro (Humalog Low) [address] [facility] PRN Reason: Protocol Last Admin: 06/17/18 17:08 Dose: Not Given Lisinopril (Zestril) 10 mg PO DAILY [facility] Last Admin: 06/17/18 09:52 Dose: 10 mg Metformin HCl (Glucophage) 500 mg PO BID [facility] Last Admin: 06/17/18 17:08 Dose: 500 mg Mupirocin (Bactroban Ointment) 0 gm TOP BID [facility] Last Admin: 06/17/18 17:07 Dose: 1 applic Pantoprazole Sodium (Protonix Ec Tab) 40 mg PO 0600 [facility] Last Admin: 06/17/18 05:11 Dose: 40 mg Thiamine HCl (Vitamin B1 Tab) 100 mg PO DAILY [facility] Last Admin: 06/17/18 09:52 Dose: 100 mg - Labs Labs: 06/16/18 10:30 06/14/18 06:00 PT 12.5 SECONDS (9.4-12.5) 12/09/17 10:00 INR 1.09 (0.93-1.08) H 12/09/17 10:00 APTT 28.3 Seconds (25.1-36.5) 11/30/17 05:30 Attending/Attestation - Attestation I have personally seen and examined this patient.: Yes I have fully participated in the care of the patient.: Yes I have reviewed all pertinent clinical information, including history, physical exam and plan: Yes
--- NOTE | 2018-06-17 21:28 | PN ---
Copied To: Daniel Torres MD Attending MD: Daniel Torres MD DATE: 06/17/2018 SUBJECTIVE: The patient is in bed, in no acute distress, nontoxic. PHYSICAL EXAMINATION: VITAL SIGNS: Temperature is 98, blood pressure is 109/60, respiratory rate of 20, heart rate of 96. HEENT: Unremarkable. NECK: Supple. LUNGS: Have decreased breath sounds. HEART: Normal S1, S2. ABDOMEN: Soft, nontender. LABORATORY EXAMINATION: Reveals the patient to have white count of 9.9, hemoglobin of 9. Chemistries are 0.6 creatinine. Review of orders as noted. ASSESSMENT AND PLAN: A 58-year-old male who was admitted initially with coagulase-negative staph and strep viridans bacteremia, gluteal and back cellulitis, liver mass on ultrasound, had multifocal pneumonia and influenza A. Currently off of antibiotics, afebrile. The patient is at risk for developing nosocomial infections. Daniel Torres MD
[2018-06-18] MEDS: Pantoprazole 40 mg EC Tab PO SCH (05:33)
[2018-06-18] MEDS: Insulin Lispro (humaLOG) LOW Coverage SC SCH ×4 (08:24→21:47)
--- NOTE | 2018-06-18 09:24 | CP.PCM.PN ---
<AlvinoLiliam - Last Filed: 06/18/18 09:19> Subjective - Date & Time of Evaluation Date of Evaluation: 06/18/18 Time of Evaluation: 09:19 - Subjective Subjective: Podiatry Progress Note - Drs. Oakley/Susan 58 y/o male seen and evaluated this morning for right anterior ankle ulcer and left ankle abrasion. Patient is awake, AAOx3, hemodynamically stable and NAD. Patient and nursing deny any acute overnight events. Patient denies any new pedal complaints at this time. Dressings remain clean/dry/intact. Denies N/V/F/D /C/SOB. Objective - Vital Signs/Intake and Output Vital Signs (last 24 hours): Temp Pulse Resp BP Pulse Ox 97.2 F L 89 20 106/70 97 06/18/18 06:00 06/18/18 06:00 06/18/18 06:00 06/18/18 06:00 06/18/18 06:00 - Medications Medications: Current Medications Aspirin (Aspirin Chewable) 81 mg PO DAILY [facility] Last Admin: 06/17/18 09:48 Dose: 81 mg Citalopram Hydrobromide (Celexa) 10 mg PO DAILY [facility] Last Admin: 06/17/18 09:49 Dose: 10 mg Collagenase (Santyl) 0 gm TOP DAILY [facility] Last Admin: 06/17/18 09:51 Dose: 1 applic Insulin Human Lispro (Humalog Low) 0 units SC ACHS [facility] PRN Reason: Protocol Last Admin: 06/18/18 08:24 Dose: Not Given Lisinopril (Zestril) 10 mg PO DAILY [facility] Last Admin: 06/17/18 09:52 Dose: 10 mg Pantoprazole Sodium (Protonix Ec Tab) 40 mg PO 0600 [facility] Last Admin: 06/18/18 05:33 Dose: 40 mg Thiamine HCl (Vitamin B1 Tab) 100 mg PO DAILY [facility] Last Admin: 06/17/18 09:52 Dose: 100 mg - Labs Labs: 06/16/18 10:30 06/14/18 06:00 PT 12.5 SECONDS (9.4-12.5) 12/09/17 10:00 INR 1.09 (0.93-1.08) H 12/09/17 10:00 APTT 28.3 Seconds (25.1-36.5) 11/30/17 05:30 - Constitutional Appears: Well, Non-toxic, No Acute Distress - Head Exam Head Exam: ATRAUMATIC, NORMOCEPHALIC - Extremities Exam Additional comments: Bilateral lower extremity physical exam: Vasc: DP and PT pulses weakly palpable 1/4 bilaterally, CFT delayed > 3 seconds x10. Temperature gradient cool to cool bilaterally. No edema noted. Neuro: Gross sensation intact bilaterally. Derm: Linear ulceration noted to anterior aspect of right ankle measuring approximately 2 x 1 cm mixed fibrogranular base; no periwound erythema noted; no drainage; no purulence; no fluctuance; no malodor; no clinical signs of infection noted. Pinpoint abrasion noted to left anterior ankle with minimal periwound erythema; no drainage; no purulence; no flucutance; no clinical sings of infection noted. Ortho: No pain on palpation noted to lower extremities. No calf pain or tenderness appreciated. - Neurological Exam Neurological Exam: Alert, Awake, Oriented x3 - Psychiatric Exam Psychiatric exam: Normal Affect, Normal Mood Assessment and Plan - Assessment and Plan (Free Text) Assessment: 58 year old male seen and evaluated for right anterior ankle ulceration and left ankle abrasion Plan: Patient seen and evaluated with attending Dr. Davis Patient plan discussed with Dr. Davis Continue local wound care- RLE bactroban and optiform; LLE optifoam Patient is stable from Podiatry standpoint No plan for surgical intervention at this time Podiatry will continue to follow patient while in house <Raciel Davis - Last Filed: 06/21/18 11:19> Objective - Vital Signs/Intake and Output Vital Signs (last 24 hours): Temp Pulse Resp BP Pulse Ox 97.8 F 72 20 100/64 95 06/21/18 07:51 06/21/18 09:04 06/21/18 07:51 06/21/18 09:04 06/21/18 07:51 Intake and Output: 06/21/18 06/21/18 06:59 18:59 Intake Total 120 Output Total 3 Balance 117 - Medications Medications: Current Medications Aspirin (Aspirin Chewable) 81 mg PO DAILY [facility] Last Admin: 06/21/18 09:04 Dose: 81 mg Citalopram Hydrobromide (Celexa) 10 mg PO DAILY [facility] Last Admin: 06/21/18 09:04 Dose: 10 mg Collagenase (Santyl) 0 gm TOP DAILY [facility] Last Admin: 06/21/18 09:05 Dose: 1 applic Insulin Human Lispro (Humalog Low) 0 units SC ACHS [facility] PRN Reason: Protocol Last Admin: 06/20/18 21:31 Dose: Not Given Lisinopril (Zestril) 10 mg PO DAILY [facility] Last Admin: 06/21/18 09:04 Dose: 10 mg Pantoprazole Sodium (Protonix Ec Tab) 40 mg PO 0600 [facility] Last Admin: 06/21/18 05:32 Dose: 40 mg Thiamine HCl (Vitamin B1 Tab) 100 mg PO DAILY [facility] Last Admin: 06/21/18 09:04 Dose: 100 mg - Labs Labs: 06/21/18 06:00 06/14/18 06:00 PT 12.5 SECONDS (9.4-12.5) 12/09/17 10:00 INR 1.09 (0.93-1.08) H 12/09/17 10:00 APTT 28.3 Seconds (25.1-36.5) 11/30/17 05:30 Attending/Attestation - Attestation I have personally seen and examined this patient.: Yes I have fully participated in the care of the patient.: Yes I have reviewed all pertinent clinical information, including history, physical exam and plan: Yes
[2018-06-18] MEDS: Collagenase 250 Units/gm Ointment(30 gm) TOP SCH (12:23)
--- NOTE | 2018-06-18 16:20 | CP.PCM.PN ---
<JaneeJones - Last Filed: 06/18/18 19:58> Subjective - Date & Time of Evaluation Date of Evaluation: 06/18/18 Time of Evaluation: 10:15 - Subjective Subjective: Jones Weller DO PGY-1, Keyseating Machine Set Up Operator Medicine Progress Note Pt seen and examined at bedside. Denies any acute complaints, other that stating that he is tired this am. No acute events reported overnight by workforce staffing advisor. States that he does not want to do physical therapy because he feels as though it does not help him. Tolerating PO diet, voiding well and pos BM, no diarrhea or constipation reported by pt. 12-point ROS obtained, as per HPI, otherwise neg as per pt. Objective - Vital Signs/Intake and Output Vital Signs (last 24 hours): Temp Pulse Resp BP Pulse Ox 98.6 F 92 H 20 102/61 96 06/18/18 16:13 06/18/18 16:13 06/18/18 16:13 06/18/18 16:13 06/18/18 16:13 - Medications Medications: Current Medications Aspirin (Aspirin Chewable) 81 mg PO DAILY [facility] Last Admin: 06/18/18 09:22 Dose: 81 mg Citalopram Hydrobromide (Celexa) 10 mg PO DAILY [facility] Last Admin: 06/18/18 09:22 Dose: 10 mg Collagenase (Santyl) 0 gm TOP DAILY [facility] Last Admin: 06/18/18 12:23 Dose: 1 applic Insulin Human Lispro (Humalog Low) 0 units SC ACHS [facility] PRN Reason: Protocol Last Admin: 06/18/18 16:13 Dose: Not Given Lisinopril (Zestril) 10 mg PO DAILY [facility] Last Admin: 06/18/18 09:21 Dose: 10 mg Pantoprazole Sodium (Protonix Ec Tab) 40 mg PO 0600 [facility] Last Admin: 06/18/18 05:33 Dose: 40 mg Thiamine HCl (Vitamin B1 Tab) 100 mg PO DAILY [facility] Last Admin: 06/18/18 09:22 Dose: 100 mg - Labs Labs: 06/16/18 10:30 06/14/18 06:00 PT 12.5 SECONDS (9.4-12.5) 12/09/17 10:00 INR 1.09 (0.93-1.08) H 12/09/17 10:00 APTT 28.3 Seconds (25.1-36.5) 11/30/17 05:30 - Constitutional Appears: Non-toxic, No Acute Distress - Eye Exam Eye Exam: EOMI, Normal appearance, PERRL - ENT Exam ENT Exam: Mucous Membranes Moist - Respiratory Exam Respiratory Exam: Clear to Ausculation Bilateral, NORMAL BREATHING PATTERN - Cardiovascular Exam Cardiovascular Exam: REGULAR RHYTHM, +S1, +S2 - GI/Abdominal Exam GI & Abdominal Exam: Soft, Normal Bowel Sounds. absent: Tenderness, Organomegaly, Rebound - Extremities Exam Extremities Exam: Full ROM, Normal Capillary Refill, Normal Inspection - Neurological Exam Neurological Exam: Alert, Awake Additional comments: Oriented x2 - Skin Skin Exam: Dry, Intact, Warm Additional comments: Dressings on b/l ankles c/d/i Assessment and Plan - Assessment and Plan (Free Text) Assessment: 57 year old male unknown PMHx admitted on 11/29/17 for AMS, right hip cellulitis , multifocal pneumonia, influenza A, strep viridians bacteremia with findings of stroke on MRI - acute vs. 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 Patient was treated for bacteremia with IV abx. Guardianship establishment pending court date; pending for 06/30/2018. Plan: The patient remains to be at his medical and mental baseline at this time. A list of his medical problems and active management can be found below: Anemia Patient with a microcytic anemia Iron level low TIBC wnl Retic count 1.30 Started ferrous sulfate PO BID on 05/26 Continue monitoring for constipation given new onset iron supplement Altered mental status At baseline this morning Cont. delirium precautions PT -patient refusing to participate; instructed PT to try to get pt ambulating Cont ASA 81 QD / LIPITOR 20 QD Dorsal Right Foot Ulcer Bandaged. Non purulent. Podiatry recommendations appreciated Wound care following On [facility] No antibiotics warranted at this time per ID Coag negative Staphylococcus bacteremia - resolved Last bld clx negative 12/04/17 with completion of 6 week course of antibiotics Monitor WBC, ESR, CRP weekly Echocardiogram unable to rule out vegetations, family is unavailable for consent for TAHIR Colonic mass CT Abd/Pelvis showing colonic mass and hepatic lesions GI consulted: follow recs Flex sig/colonoscopy refused by patient Family unable to be contacted for consent Diabetes mellitus type 2 Cont ISS low Cont Metformin 500mg BID Cont accuchecks Carb consistent diet HTN BP Stable, continue to monitor Cont Lisinopril 10 QD Pressures are currently well controlled without Amlodipine 10 mg PO QD Can resume if pressures increase Leukocytosis - RESOLVED WBC elevated 05/17 Patient srinivasan cultured Blood cx negative x2 after 48H Urine cx w/ multiple species ML contaminated Abd U/S - 7mm common bile duct dilatation and gallstones; Hepatic lesions measuring up to 4.9cm and 3.8 cm; compared to prev abd U/S from 12/05 lesions measured 4.1cm and 3.1cm No RUQ tenderness appreciated on exam; ID following, appreciate reccs Affective disorder Cont Celexa 10mg PO Daily Constipation Colace 100mg BID Miralax 17gm BID Hx ETOH Abuse Cont Thiamine Cont Folic Acid Cont Multivitamin DVT Prophylaxis: SCDs Pt seen, examined with, and plan discussed with Dr. Larry, attending. <Arben Larry - Last Filed: 06/18/18 21:39> Objective - Vital Signs/Intake and Output Vital Signs (last 24 hours): Temp Pulse Resp BP Pulse Ox 98.6 F 92 H 20 102/61 96 06/18/18 16:13 06/18/18 16:13 06/18/18 16:13 06/18/18 16:13 06/18/18 16:13 - Medications Medications: Current Medications Aspirin (Aspirin Chewable) 81 mg PO DAILY [facility] Last Admin: 06/18/18 09:22 Dose: 81 mg Citalopram Hydrobromide (Celexa) 10 mg PO DAILY [facility] Last Admin: 06/18/18 09:22 Dose: 10 mg Collagenase (Santyl) 0 gm TOP DAILY [facility] Last Admin: 06/18/18 12:23 Dose: 1 applic Insulin Human Lispro (Humalog Low) 0 units SC [facility] PRN Reason: Protocol Last Admin: 06/18/18 16:13 Dose: Not Given Lisinopril (Zestril) 10 mg PO DAILY [facility] Last Admin: 06/18/18 09:21 Dose: 10 mg Pantoprazole Sodium (Protonix Ec Tab) 40 mg PO 0600 [facility] Last Admin: 06/18/18 05:33 Dose: 40 mg Thiamine HCl (Vitamin B1 Tab) 100 mg PO DAILY [facility] Last Admin: 06/18/18 09:22 Dose: 100 mg - Labs Labs: 06/16/18 10:30 06/14/18 06:00 PT 12.5 SECONDS (9.4-12.5) 12/09/17 10:00 INR 1.09 (0.93-1.08) H 12/09/17 10:00 APTT 28.3 Seconds (25.1-36.5) 11/30/17 05:30 Attending/Attestation - Attestation I have personally seen and examined this patient.: Yes I have fully participated in the care of the patient.: Yes I have reviewed all pertinent clinical information, including history, physical exam and plan: Yes Notes (Text): 06/18/18 21:35 Patient seen and examined at bedside.Vitals, labs, notes reviewed. No acute issues reported. Encouraged patient to participate in physical therapy as well.
--- NOTE | 2018-06-18 22:35 | PN ---
Copied To: Daniel Torres MD Attending MD: Daniel Torres MD DATE: 06/18/2018 SUBJECTIVE: The patient is in bed, in no acute distress. PHYSICAL EXAMINATION: VITAL SIGNS: Temperature is 98, blood pressure is 102/60, and respiratory rate of 18. HEENT: Examination of HEENT is unremarkable. NECK: Supple. LUNGS: Have decreased breath sounds. HEART: Normal S1, S2. ABDOMEN: Soft, nontender. LABORATORY EXAMINATION: Reveals the white count is 9.9, hemoglobin of 9, platelets of 414. Chemistries reviewed, creatinine 0.6. ASSESSMENT AND PLAN: This 58-year-old male who was initially admitted with coagulase-negative Staphylococcus and Streptococcus viridans bacteremia, gluteal and back cellulitis, liver masses on ultrasound, had a multifocal pneumonia, had influenza A. Currently off of antibiotics, afebrile. The patient is at risk for developing nosocomial infections. Daniel Torres MD
[2018-06-19] MEDS: Pantoprazole 40 mg EC Tab PO SCH (05:53)
[2018-06-19] MEDS: Insulin Lispro (humaLOG) LOW Coverage SC SCH ×4 (07:31→21:48)
[2018-06-19] MEDS: Collagenase 250 Units/gm Ointment(30 gm) TOP SCH (10:23)
--- NOTE | 2018-06-19 12:43 | CP.PCM.PN ---
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 Denies any acute complaints, tolerating PO diet well, voiding and pos BMs without concerns. No acute events reported overnight by bell staff. Pt more alert this am, states he slept well overnight. 12 -point ROS obtained, as per HPI, otherwise neg as per pt. Objective - Vital Signs/Intake and Output Vital Signs (last 24 hours): Temp Pulse Resp BP Pulse Ox 98.3 F 83 18 94/59 L 96 06/19/18 06:00 06/19/18 10:21 06/19/18 06:00 06/19/18 10:21 06/19/18 06:00 Intake and Output: 06/19/18 06/19/18 06:59 18:59 Intake Total 50 Balance 50 - Medications Medications: Current Medications Aspirin (Aspirin Chewable) 81 mg PO DAILY [facility] Last Admin: 06/19/18 10:20 Dose: 81 mg Citalopram Hydrobromide (Celexa) 10 mg PO DAILY [facility] Last Admin: 06/19/18 10:21 Dose: 10 mg Collagenase (Santyl) 0 gm TOP DAILY [facility] Last Admin: 06/19/18 10:23 Dose: 1 applic Insulin Human Lispro (Humalog Low) 0 units SC [facility] PRN Reason: Protocol Last Admin: 06/19/18 12:01 Dose: Not Given Lisinopril (Zestril) 10 mg PO DAILY [facility] Last Admin: 06/19/18 10:21 Dose: Not Given Pantoprazole Sodium (Protonix Ec Tab) 40 mg PO 0600 [facility] Last Admin: 06/19/18 05:53 Dose: 40 mg Thiamine HCl (Vitamin B1 Tab) 100 mg PO DAILY [facility] Last Admin: 06/19/18 10:20 Dose: 100 mg - Labs Labs: 06/16/18 10:30 06/14/18 06:00 PT 12.5 SECONDS (9.4-12.5) 12/09/17 10:00 INR 1.09 (0.93-1.08) H 12/09/17 10:00 APTT 28.3 Seconds (25.1-36.5) 11/30/17 05:30 - Constitutional Appears: Non-toxic, No Acute Distress - Head Exam Head Exam: ATRAUMATIC, NORMAL INSPECTION - Eye Exam Eye Exam: EOMI, Normal appearance, PERRL - ENT Exam ENT Exam: Mucous Membranes Moist, Normal Oropharynx - Respiratory Exam Respiratory Exam: Clear to Ausculation Bilateral, NORMAL BREATHING PATTERN - Cardiovascular Exam Cardiovascular Exam: REGULAR RHYTHM, +S1, +S2 - GI/Abdominal Exam GI & Abdominal Exam: Soft, Normal Bowel Sounds. absent: Distended, Tenderness, Organomegaly - Extremities Exam Extremities Exam: Full ROM, Normal Capillary Refill, Normal Inspection - Neurological Exam Neurological Exam: Alert, Awake, CN II-XII Intact, Oriented x3 - Skin Skin Exam: Dry, Intact, Normal Color, Warm Assessment and Plan - Assessment and Plan (Free Text) Assessment: 57 year old male unknown PMHx admitted on 11/29/17 for AMS, right hip cellulitis , multifocal pneumonia, influenza A, strep viridians bacteremia with findings of stroke on MRI - acute vs. 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 Patient was treated for bacteremia with IV abx. Guardianship establishment pending court date; pending for 06/30/2018. Plan: The patient remains to be at his medical and mental baseline at this time. A list of his medical problems and active management can be found below: Anemia Patient with a microcytic anemia Iron level low TIBC wnl Retic count 1.30 Started ferrous sulfate PO BID on 05/26 Continue monitoring for constipation given new onset iron supplement Altered mental status At baseline this morning Cont. delirium precautions PT -patient refusing to participate; instructed PT to try to get pt ambulating Cont ASA 81 QD / LIPITOR 20 QD Dorsal Right Foot Ulcer Bandaged. Non purulent. Podiatry recommendations appreciated Wound care following On [facility] No antibiotics warranted at this time per ID Coag negative Staphylococcus bacteremia - resolved Last bld clx negative 12/04/17 with completion of 6 week course of antibiotics Monitor WBC, ESR, CRP weekly Echocardiogram unable to rule out vegetations, family is unavailable for consent for TAHIR Colonic mass CT Abd/Pelvis showing colonic mass and hepatic lesions GI consulted: follow recs Flex sig/colonoscopy refused by patient Family unable to be contacted for consent Diabetes mellitus type 2 Cont ISS low Cont Metformin 500mg BID Cont accuchecks Carb consistent diet HTN BP Stable, continue to monitor Cont Lisinopril 10 QD Pressures are currently well controlled without Amlodipine 10 mg PO QD Can resume if pressures increase Leukocytosis - RESOLVED WBC elevated 05/17 Patient srinivasan cultured Blood cx negative x2 after 48H Urine cx w/ multiple species ML contaminated Abd U/S - 7mm common bile duct dilatation and gallstones; Hepatic lesions measuring up to 4.9cm and 3.8 cm; compared to prev abd U/S from 12/05 lesions measured 4.1cm and 3.1cm No RUQ tenderness appreciated on exam; ID following, appreciate reccs Affective disorder Cont Celexa 10mg PO Daily Constipation Colace 100mg BID Miralax 17gm BID Hx ETOH Abuse Cont Thiamine Cont Folic Acid Cont Multivitamin DVT Prophylaxis: SCDs Pt seen, examined with, and plan discussed with Dr. Larry, attending. <Arben Larry - Last Filed: 06/19/18 21:54> Objective - Vital Signs/Intake and Output Vital Signs (last 24 hours): Temp Pulse Resp BP Pulse Ox 98.3 F 86 20 107/69 94 L 06/19/18 16:42 06/19/18 16:42 06/19/18 16:42 06/19/18 16:42 06/19/18 16:42 Intake and Output: 06/19/18 06/20/18 18:59 06:59 Intake Total 1330 Output Total 0 Balance 1330 - Medications Medications: Current Medications Aspirin (Aspirin Chewable) 81 mg PO DAILY [facility] Last Admin: 06/19/18 10:20 Dose: 81 mg Citalopram Hydrobromide (Celexa) 10 mg PO DAILY [facility] Last Admin: 06/19/18 10:21 Dose: 10 mg Collagenase (Santyl) 0 gm TOP DAILY [facility] Last Admin: 06/19/18 10:23 Dose: 1 applic Insulin Human Lispro (Humalog Low) 0 units SC [facility] PRN Reason: Protocol Last Admin: 06/19/18 21:48 Dose: Not Given Lisinopril (Zestril) 10 mg PO DAILY [facility] Last Admin: 06/19/18 10:21 Dose: Not Given Pantoprazole Sodium (Protonix Ec Tab) 40 mg PO 0600 [facility] Last Admin: 06/19/18 05:53 Dose: 40 mg Thiamine HCl (Vitamin B1 Tab) 100 mg PO DAILY [facility] Last Admin: 06/19/18 10:20 Dose: 100 mg - Labs Labs: 06/16/18 10:30 06/14/18 06:00 PT 12.5 SECONDS (9.4-12.5) 12/09/17 10:00 INR 1.09 (0.93-1.08) H 12/09/17 10:00 APTT 28.3 Seconds (25.1-36.5) 11/30/17 05:30 Attending/Attestation - Attestation I have personally seen and examined this patient.: Yes I have fully participated in the care of the patient.: Yes I have reviewed all pertinent clinical information, including history, physical exam and plan: Yes Notes (Text): 06/19/18 21:54 patient seen and examined at bedside. vitals, notes and previous labs reviewed. Agree with the plan as discussed and outlined by the resident.
--- NOTE | 2018-06-19 14:42 | PN ---
Copied To: Daniel Torres MD Attending MD: Daniel Torres MD DATE: 06/19/2018 SUBJECTIVE: The patient is seen earlier today, in no acute distress, nontoxic. PHYSICAL EXAMINATION: VITAL SIGNS: Temperature is 98, blood pressure is 120/70, respiratory rate of 16. HEENT: Unremarkable. NECK: Supple. LUNGS: Have decreased breath sounds. HEART: Normal S1, S2. ABDOMEN: Soft. LABORATORY EXAMINATION: Reveals a white count of 9.9, hemoglobin of 9, platelets of 496. Chemistries are noted with creatinine is 0.6. Urinalysis is noted. Serology is noted. ASSESSMENT AND PLAN: A 58-year-old male who was seen earlier today in 363, bed 1, who was initially admitted with a coagulase-negative Staphylococcus and strep viridans bacteremia, gluteal and back cellulitis, liver mass on ultrasound, who had multifocal pneumonia and influenza A. Currently off of antibiotics, afebrile. The patient is at risk for developing nosocomial infections. Daniel Torres MD
[2018-06-20] MEDS: Pantoprazole 40 mg EC Tab PO SCH (05:20)
[2018-06-20] MEDS: Insulin Lispro (humaLOG) LOW Coverage SC SCH ×4 (09:25→21:31)
[2018-06-20] MEDS: Collagenase 250 Units/gm Ointment(30 gm) TOP SCH (10:30)
--- NOTE | 2018-06-20 11:54 | CP.PCM.PN ---
<Liliam De Oliveira - Last Filed: 06/20/18 11:51> Subjective - Date & Time of Evaluation Date of Evaluation: 06/20/18 Time of Evaluation: 11:52 - Subjective Subjective: Podiatry Progress Note - Drs. Oakley/Susan 58 y/o male seen and evaluated this morning for right anterior ankle ulcer and left ankle abrasion. Patient is awake, AAOx3, hemodynamically stable and NAD. Patient and nursing deny any acute overnight events. Patient denies any new pedal complaints at this time. Dressings remain clean/dry/intact. Denies N/V/F/D /C/SOB. Objective - Vital Signs/Intake and Output Vital Signs (last 24 hours): Temp Pulse Resp BP Pulse Ox 97.8 F 96 H 16 136/97 H 97 06/20/18 08:28 06/20/18 09:35 06/20/18 08:28 06/20/18 09:35 06/20/18 08:28 Intake and Output: 06/20/18 06/20/18 06:59 18:59 Intake Total 240 Balance 240 - Medications Medications: Current Medications Aspirin (Aspirin Chewable) 81 mg PO DAILY [facility] Last Admin: 06/20/18 09:36 Dose: 81 mg Citalopram Hydrobromide (Celexa) 10 mg PO DAILY [facility] Last Admin: 06/20/18 09:35 Dose: 10 mg Collagenase (Santyl) 0 gm TOP DAILY [facility] Last Admin: 06/19/18 10:23 Dose: 1 applic Insulin Human Lispro (Humalog Low) 0 units SC [facility] PRN Reason: Protocol Last Admin: 06/20/18 09:25 Dose: Not Given Lisinopril (Zestril) 10 mg PO DAILY [facility] Last Admin: 06/20/18 09:35 Dose: 10 mg Pantoprazole Sodium (Protonix Ec Tab) 40 mg PO 0600 [facility] Last Admin: 06/20/18 05:20 Dose: 40 mg Thiamine HCl (Vitamin B1 Tab) 100 mg PO DAILY [facility] Last Admin: 06/20/18 09:35 Dose: 100 mg - Labs Labs: 06/16/18 10:30 06/14/18 06:00 PT 12.5 SECONDS (9.4-12.5) 12/09/17 10:00 INR 1.09 (0.93-1.08) H 12/09/17 10:00 APTT 28.3 Seconds (25.1-36.5) 11/30/17 05:30 - Constitutional Appears: Well, Non-toxic, No Acute Distress - Head Exam Head Exam: ATRAUMATIC, NORMOCEPHALIC - Extremities Exam Additional comments: Dressings kept intact - Neurological Exam Neurological Exam: Alert, Awake, Oriented x3 - Psychiatric Exam Psychiatric exam: Normal Affect, Normal Mood Assessment and Plan - Assessment and Plan (Free Text) Assessment: 58 year old male seen and evaluated for right anterior ankle ulceration and left ankle abrasion Plan: Patient seen and evaluated with attending Dr. Oakley Patient plan discussed with Dr. Oakley Patient denied dressing change today Patient dressing will be changed Wednesday, and Wednesday Continue local wound care- RLE bactroban and optiform; LLE optifoam Patient is stable from Podiatry standpoint No plan for surgical intervention at this time Podiatry will continue to follow patient while in house <Ivania Oakley - Last Filed: 06/20/18 14:38> Objective - Vital Signs/Intake and Output Vital Signs (last 24 hours): Temp Pulse Resp BP Pulse Ox 97.8 F 96 H 16 136/97 H 97 06/20/18 08:28 06/20/18 09:35 06/20/18 08:28 06/20/18 09:35 06/20/18 08:28 Intake and Output: 06/20/18 06/20/18 06:59 18:59 Intake Total 240 Balance 240 - Medications Medications: Current Medications Aspirin (Aspirin Chewable) 81 mg PO DAILY [facility] Last Admin: 06/20/18 09:36 Dose: 81 mg Citalopram Hydrobromide (Celexa) 10 mg PO DAILY [facility] Last Admin: 06/20/18 09:35 Dose: 10 mg Collagenase (Santyl) 0 gm TOP DAILY [facility] Last Admin: 06/20/18 10:30 Dose: 1 applic Insulin Human Lispro (Humalog Low) [address] [facility] PRN Reason: Protocol Last Admin: 06/20/18 11:30 Dose: Not Given Lisinopril (Zestril) 10 mg PO DAILY [facility] Last Admin: 06/20/18 09:35 Dose: 10 mg Pantoprazole Sodium (Protonix Ec Tab) 40 mg PO 0600 [facility] Last Admin: 06/20/18 05:20 Dose: 40 mg Thiamine HCl (Vitamin B1 Tab) 100 mg PO DAILY [facility] Last Admin: 06/20/18 09:35 Dose: 100 mg - Labs Labs: 06/16/18 10:30 06/14/18 06:00 PT 12.5 SECONDS (9.4-12.5) 12/09/17 10:00 INR 1.09 (0.93-1.08) H 12/09/17 10:00 APTT 28.3 Seconds (25.1-36.5) 11/30/17 05:30 Attending/Attestation - Attestation I have personally seen and examined this patient.: Yes I have reviewed all pertinent clinical information, including history, physical exam and plan: Yes
--- NOTE | 2018-06-20 12:28 | CP.PCM.PN ---
<Jones Weller - Last Filed: 06/20/18 12:24> Subjective - Date & Time of Evaluation Date of Evaluation: 06/20/18 Time of Evaluation: 10:00 - Subjective Subjective: Jones Weller DO PGY-1, [employer] Medicine Progress Note Pt seen and examined at bedside this am. Denies any acute complaints. No acute events reported overnight by medical staff coordinator. 12-point ROS obtained, otherwise neg as per pt. Objective - Vital Signs/Intake and Output Vital Signs (last 24 hours): Temp Pulse Resp BP Pulse Ox 97.8 F 96 H 16 136/97 H 97 06/20/18 08:28 06/20/18 09:35 06/20/18 08:28 06/20/18 09:35 06/20/18 08:28 Intake and Output: 06/20/18 06/20/18 06:59 18:59 Intake Total 240 Balance 240 - Medications Medications: Current Medications Aspirin (Aspirin Chewable) 81 mg PO DAILY [facility] Last Admin: 06/20/18 09:36 Dose: 81 mg Citalopram Hydrobromide (Celexa) 10 mg PO DAILY [facility] Last Admin: 06/20/18 09:35 Dose: 10 mg Collagenase (Santyl) 0 gm TOP DAILY [facility] Last Admin: 06/19/18 10:23 Dose: 1 applic Insulin Human Lispro (Humalog Low) 0 units [facility] PRN Reason: Protocol Last Admin: 06/20/18 09:25 Dose: Not Given Lisinopril (Zestril) 10 mg PO DAILY [facility] Last Admin: 06/20/18 09:35 Dose: 10 mg Pantoprazole Sodium (Protonix Ec Tab) 40 mg PO 0600 [facility] Last Admin: 06/20/18 05:20 Dose: 40 mg Thiamine HCl (Vitamin B1 Tab) 100 mg PO DAILY [facility] Last Admin: 06/20/18 09:35 Dose: 100 mg - Labs Labs: 06/16/18 10:30 06/14/18 06:00 PT 12.5 SECONDS (9.4-12.5) 12/09/17 10:00 INR 1.09 (0.93-1.08) H 12/09/17 10:00 APTT 28.3 Seconds (25.1-36.5) 11/30/17 05:30 - Constitutional Appears: Non-toxic, No Acute Distress - Head Exam Head Exam: ATRAUMATIC, NORMAL INSPECTION - Eye Exam Eye Exam: EOMI, Normal appearance, PERRL - ENT Exam ENT Exam: Mucous Membranes Moist, Normal Oropharynx - Respiratory Exam Respiratory Exam: Clear to Ausculation Bilateral, NORMAL BREATHING PATTERN - Cardiovascular Exam Cardiovascular Exam: REGULAR RHYTHM, +S1, +S2 - GI/Abdominal Exam GI & Abdominal Exam: Soft, Normal Bowel Sounds. absent: Distended, Tenderness, Rebound - Extremities Exam Extremities Exam: Full ROM, Normal Capillary Refill - Neurological Exam Neurological Exam: Alert, Awake Additional comments: Oriented x1 - Skin Skin Exam: Dry, Intact, Warm Assessment and Plan - Assessment and Plan (Free Text) Assessment: 57 year old male unknown PMHx admitted on 11/29/17 for AMS, right hip cellulitis , multifocal pneumonia, influenza A, strep viridians bacteremia with findings of stroke on MRI - acute vs. 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 Patient was treated for bacteremia with IV abx. Plan: The patient remains to be at his medical and mental baseline at this time. A list of his medical problems and active management can be found below: Anemia Patient with a microcytic anemia Iron level low TIBC wnl Retic count 1.30 Started ferrous sulfate PO BID on 05/26 Continue monitoring for constipation given new onset iron supplement Altered mental status At baseline this morning Cont. delirium precautions PT -patient refusing to participate; instructed PT to try to get pt ambulating Cont ASA 81 QD / LIPITOR 20 QD Dorsal Right Foot Ulcer Bandaged. Non purulent. Podiatry recommendations appreciated Wound care following On [facility] No antibiotics warranted at this time per ID Coag negative Staphylococcus bacteremia - resolved Last bld clx negative 12/04/17 with completion of 6 week course of antibiotics Monitor WBC, ESR, CRP weekly Echocardiogram unable to rule out vegetations, family is unavailable for consent for TAHIR Colonic mass CT Abd/Pelvis showing colonic mass and hepatic lesions GI consulted: follow recs Flex sig/colonoscopy refused by patient Family unable to be contacted for consent Diabetes mellitus type 2 Cont ISS low Cont Metformin 500mg BID Cont accuchecks Carb consistent diet HTN BP Stable, continue to monitor Cont Lisinopril 10 QD Pressures are currently well controlled without Amlodipine 10 mg PO QD Can resume if pressures increase Leukocytosis - RESOLVED WBC elevated 05/17 Patient srinivasan cultured Blood cx negative x2 after 48H Urine cx w/ multiple species ML contaminated Abd U/S - 7mm common bile duct dilatation and gallstones; Hepatic lesions measuring up to 4.9cm and 3.8 cm; compared to prev abd U/S from 12/05 lesions measured 4.1cm and 3.1cm No RUQ tenderness appreciated on exam; ID following, appreciate reccs Affective disorder Cont Celexa 10mg PO Daily Constipation Colace 100mg BID Miralax 17gm BID Hx ETOH Abuse Cont Thiamine Cont Folic Acid Cont Multivitamin DVT Prophylaxis: SCDs Pt seen, examined at bedside, and plan discussed with Dr. Schumacher, attending. <Deanna Schumacher - Last Filed: 06/20/18 14:48> Objective - Vital Signs/Intake and Output Vital Signs (last 24 hours): Temp Pulse Resp BP Pulse Ox 97.8 F 96 H 16 136/97 H 97 06/20/18 08:28 06/20/18 09:35 06/20/18 08:28 06/20/18 09:35 06/20/18 08:28 Intake and Output: 06/20/18 06/20/18 06:59 18:59 Intake Total 240 Balance 240 - Medications Medications: Current Medications Aspirin (Aspirin Chewable) 81 mg PO DAILY [facility] Last Admin: 06/20/18 09:36 Dose: 81 mg Citalopram Hydrobromide (Celexa) 10 mg PO DAILY [facility] Last Admin: 06/20/18 09:35 Dose: 10 mg Collagenase (Santyl) 0 gm TOP DAILY [facility] Last Admin: 06/20/18 10:30 Dose: 1 applic Insulin Human Lispro (Humalog Low) 0 units [facility] PRN Reason: Protocol Last Admin: 06/20/18 11:30 Dose: Not Given Lisinopril (Zestril) 10 mg PO DAILY [facility] Last Admin: 06/20/18 09:35 Dose: 10 mg Pantoprazole Sodium (Protonix Ec Tab) 40 mg PO 0600 [facility] Last Admin: 06/20/18 05:20 Dose: 40 mg Thiamine HCl (Vitamin B1 Tab) 100 mg PO DAILY [facility] Last Admin: 06/20/18 09:35 Dose: 100 mg - Labs Labs: 06/16/18 10:30 06/14/18 06:00 PT 12.5 SECONDS (9.4-12.5) 12/09/17 10:00 INR 1.09 (0.93-1.08) H 12/09/17 10:00 APTT 28.3 Seconds (25.1-36.5) 11/30/17 05:30 Attending/Attestation - Attestation I have personally seen and examined this patient.: Yes I have fully participated in the care of the patient.: Yes I have reviewed all pertinent clinical information, including history, physical exam and plan: Yes Notes (Text): 06/20/18 14:46 Medical record note made by the resident after discussion with my direction and input after the patient was personally seen and examined by me. I have reviewed the chart and agree that the record accurately reflects by personal performance of the history, physical exam, data review, and medical decision-making, in the course for the patient. I have also personally directed the plan of care. 57 yrs old male , S/P sepsis due to strep viridans and Cogulase negative bacteremia from right gluteal and back cellulitis, S/P multifocal HCAP on top of Influenza A infection and S/P Sammie infection of sacral area as well. Mental status is at base line, has advance demetia, has poor insight for his medical and living conndition. Patient is awaiting for placement. Prognosis is guarded.
--- NOTE | 2018-06-20 12:39 | PN ---
Copied To: Daniel Torres MD Attending MD: Daniel Torres MD DATE: 06/20/2018 SUBJECTIVE: The patient is in bed, in no acute distress. PHYSICAL EXAMINATION: VITAL SIGNS: On exam, temperature is 97, blood pressure is 130/70, respiratory rate of 16. HEENT: Examination of HEENT is unremarkable. NECK: Supple. LUNGS: Have decreased breath sounds. HEART: Normal S1, S2. ABDOMEN: Soft. LABORATORY DATA: Laboratory examination reveals white count is 9.9, hemoglobin of 9, platelets of 414. Chemistries are noted. BUN of 23, creatinine of 0.6. Review of orders reveals the patient to be off of antibiotics. ASSESSMENT AND PLAN: A 58-year-old who was seen earlier today and admitted with coagulase-negative Staphylococcus, Streptococcus viridans bacteremia, gluteal and back cellulitis and found to have liver masses on ultrasound, had multifocal pneumonia, influenza A. Currently, off of antibiotics, afebrile, at risk for developing nosocomial infections. Daniel Torres MD
[2018-06-21] MEDS: Pantoprazole 40 mg EC Tab PO SCH (05:32)
[2018-06-21 06:35] LABS: BASO # 0.03 K/mm3 (0.0-2.0); BASO % 0.3 % (0.0-3.0); EOS # 0.2 (0.0-0.7); GRAN # 5.57 (1.4-6.5); GRAN % 59.1 % (50.0-68.0); HEMOGLOBIN 8.7 g/dL (14.0-18.0); LYMPH # 2.9 (1.2-3.4); LYMPH % 30.4 % (22.0-35.0); MEAN CELL VOLUME 75.4 fl (80.0-105.0); MEAN CORPUSCULAR HGB CONC 31.9 g/dl (31.0-37.0); MEAN PLATELET VOLUME 8.6 fl (7.0-11.0); MONO # 0.8 (0.1-0.6); MONO % 8.2 % (1.0-6.0); RBC 3.62 10^6/uL (3.5-6.1); RED CELL DISTRIBUTION WIDTH 15.6 % (11.5-14.5); WHITE BLOOD COUNT 9.4 10^3/ul (4.5-11.0)
[2018-06-21] MEDS: Insulin Lispro (humaLOG) LOW Coverage SC SCH ×4 (08:07→21:34)
[2018-06-21] MEDS: Collagenase 250 Units/gm Ointment(30 gm) TOP SCH (09:05)
[2018-06-21 11:26] LABS: ALBUMIN 3.5 g/dL (3.0-4.8); ALT/SGPT 29 U/L (7-56); AST/SGOT 39 U/L (17-59); BLOOD UREA NITROGEN 16 mg/dL (7-21); CALCIUM 9.2 mg/dL (8.4-10.5); GFR NON-AFRICAN AMERICAN > 60
--- NOTE | 2018-06-21 12:02 | CP.PCM.PN ---
<Vickie Vang - Last Filed: 06/21/18 11:59> Subjective - Date & Time of Evaluation Date of Evaluation: 06/21/18 Time of Evaluation: 11:59 - Subjective Subjective: Podiatry Progress Note - Drs. Oakley/Susan 58M seen and evaluated for right anterior ankle ulceration. Patient resting comfortably, hemodynamically stable and NAD. No acute events overnight. DEE stockings present bilaterally with optifoam to right ankle. No new complaints per patient. Denies N/V/F/D/C/SOB/DIXON. Objective - Vital Signs/Intake and Output Vital Signs (last 24 hours): Temp Pulse Resp BP Pulse Ox 97.8 F 72 20 100/64 95 06/21/18 07:51 06/21/18 09:04 06/21/18 07:51 06/21/18 09:04 06/21/18 07:51 Intake and Output: 06/21/18 06/21/18 06:59 18:59 Intake Total 120 Output Total 3 Balance 117 - Medications Medications: Current Medications Aspirin (Aspirin Chewable) 81 mg PO DAILY [facility] Last Admin: 06/21/18 09:04 Dose: 81 mg Citalopram Hydrobromide (Celexa) 10 mg PO DAILY [facility] Last Admin: 06/21/18 09:04 Dose: 10 mg Collagenase (Santyl) 0 gm TOP DAILY [facility] Last Admin: 06/21/18 09:05 Dose: 1 applic Insulin Human Lispro (Humalog Low) [address] [facility] PRN Reason: Protocol Last Admin: 06/20/18 21:31 Dose: Not Given Lisinopril (Zestril) 10 mg PO DAILY [facility] Last Admin: 06/21/18 09:04 Dose: 10 mg Pantoprazole Sodium (Protonix Ec Tab) 40 mg PO 0600 [facility] Last Admin: 06/21/18 05:32 Dose: 40 mg Thiamine HCl (Vitamin B1 Tab) 100 mg PO DAILY [facility] Last Admin: 06/21/18 09:04 Dose: 100 mg - Labs Labs: 06/21/18 06:00 06/21/18 06:00 PT 12.5 SECONDS (9.4-12.5) 12/09/17 10:00 INR 1.09 (0.93-1.08) H 12/09/17 10:00 APTT 28.3 Seconds (25.1-36.5) 11/30/17 05:30 - Constitutional Appears: Well, Non-toxic, No Acute Distress - Extremities Exam Additional comments: Bilateral lower extremity physical exam: DEE compression stockings b/l with optifoam to right ankle Vasc: DP and PT pulses weakly palpable 1/4 bilaterally, CFT delayed > 3 seconds x10. Temperature gradient cool to cool bilaterally. No edema noted. Neuro: Gross sensation intact bilaterally. Derm: Linear ulceration noted to anterior aspect of right ankle measuring approximately 2 x 1 cm 100% granular base; no periwound erythema noted; no drainage; no purulence; no fluctuance; no malodor; no clinical signs of infection noted. Abrasion to left anterior ankle resolved. Ortho: No pain on palpation noted to lower extremities. No calf pain or tenderness appreciated. - Neurological Exam Neurological Exam: Alert, Awake, Oriented x3 Assessment and Plan - Assessment and Plan (Free Text) Assessment: 58 year old male seen and evaluated for 1) right anterior ankle ulceration and 2 ) left ankle abrasion, resolved Plan: Patient seen and evaluated alongside attending, Dr. Susan HAMPTON Continue local wound care QOD - RLE bactroban, optifoam; no dressing to LLE Continue DEE stockings b/l Patient is stable from Podiatry standpoint No plan for surgical intervention at this time Podiatry will continue to follow <Raciel Davis - Last Filed: 06/21/18 18:08> Objective - Vital Signs/Intake and Output Vital Signs (last 24 hours): Temp Pulse Resp BP Pulse Ox 97.6 F 79 20 100/58 L 96 06/21/18 17:14 06/21/18 17:14 06/21/18 17:14 06/21/18 17:14 06/21/18 17:14 Intake and Output: 06/21/18 06/21/18 06:59 18:59 Intake Total 120 Output Total 3 Balance 117 - Medications Medications: Current Medications Aspirin (Aspirin Chewable) 81 mg PO DAILY [facility] Last Admin: 06/21/18 09:04 Dose: 81 mg Citalopram Hydrobromide (Celexa) 10 mg PO DAILY [facility] Last Admin: 06/21/18 09:04 Dose: 10 mg Collagenase (Santyl) 0 gm TOP DAILY [facility] Last Admin: 06/21/18 09:05 Dose: 1 applic Insulin Human Lispro (Humalog Low) 0 units SC [facility] PRN Reason: Protocol Last Admin: 06/21/18 12:51 Dose: 2 units Lisinopril (Zestril) 10 mg PO DAILY [facility] Last Admin: 06/21/18 09:04 Dose: 10 mg Pantoprazole Sodium (Protonix Ec Tab) 40 mg PO 0600 [facility] Last Admin: 06/21/18 05:32 Dose: 40 mg Thiamine HCl (Vitamin B1 Tab) 100 mg PO DAILY [facility] Last Admin: 06/21/18 09:04 Dose: 100 mg - Labs Labs: 06/21/18 06:00 06/21/18 06:00 PT 12.5 SECONDS (9.4-12.5) 12/09/17 10:00 INR 1.09 (0.93-1.08) H 12/09/17 10:00 APTT 28.3 Seconds (25.1-36.5) 11/30/17 05:30 Attending/Attestation - Attestation I have personally seen and examined this patient.: Yes I have fully participated in the care of the patient.: Yes I have reviewed all pertinent clinical information, including history, physical exam and plan: Yes
--- NOTE | 2018-06-21 15:13 | CP.PCM.PN ---
Subjective - Date & Time of Evaluation Date of Evaluation: 06/21/18 Time of Evaluation: 10:30 - Subjective Subjective: Jones Weller DO PGY-1, [employer] Medicine Progress Note Pt seen and examined at bedside this am. Denies any acute complaints. Reports he slept well overnight. Tolerating PO diet. Voiding and pos BMs without concerns. No acute events reported overnight. 12-point ROS obtained, otherwise neg as per pt. Objective - Vital Signs/Intake and Output Vital Signs (last 24 hours): Temp Pulse Resp BP Pulse Ox 97.8 F 72 20 100/64 95 06/21/18 07:51 06/21/18 09:04 06/21/18 07:51 06/21/18 09:04 06/21/18 07:51 Intake and Output: 06/21/18 06/21/18 06:59 18:59 Intake Total 120 Output Total 3 Balance 117 - Medications Medications: Current Medications Aspirin (Aspirin Chewable) 81 mg PO DAILY [facility] Last Admin: 06/21/18 09:04 Dose: 81 mg Citalopram Hydrobromide (Celexa) 10 mg PO DAILY [facility] Last Admin: 06/21/18 09:04 Dose: 10 mg Collagenase (Santyl) 0 gm TOP DAILY [facility] Last Admin: 06/21/18 09:05 Dose: 1 applic Insulin Human Lispro (Humalog Low) [address] [facility] PRN Reason: Protocol Last Admin: 06/21/18 12:51 Dose: 2 units Lisinopril (Zestril) 10 mg PO DAILY [facility] Last Admin: 06/21/18 09:04 Dose: 10 mg Pantoprazole Sodium (Protonix Ec Tab) 40 mg PO 0600 [facility] Last Admin: 06/21/18 05:32 Dose: 40 mg Thiamine HCl (Vitamin B1 Tab) 100 mg PO DAILY [facility] Last Admin: 06/21/18 09:04 Dose: 100 mg - Labs Labs: 06/21/18 06:00 06/21/18 06:00 PT 12.5 SECONDS (9.4-12.5) 12/09/17 10:00 INR 1.09 (0.93-1.08) H 12/09/17 10:00 APTT 28.3 Seconds (25.1-36.5) 11/30/17 05:30 - Constitutional Appears: Non-toxic, No Acute Distress - Head Exam Head Exam: ATRAUMATIC, NORMAL INSPECTION - Eye Exam Eye Exam: EOMI, Normal appearance, PERRL - ENT Exam ENT Exam: Mucous Membranes Moist, Normal Oropharynx - Respiratory Exam Respiratory Exam: Clear to Ausculation Bilateral, NORMAL BREATHING PATTERN. absent: Rales, Rhonchi, Wheezes - Cardiovascular Exam Cardiovascular Exam: REGULAR RHYTHM, +S1, +S2, +S4. absent: Gallop, Rubs, Murmur - GI/Abdominal Exam GI & Abdominal Exam: Soft, Normal Bowel Sounds. absent: Distended, Tenderness, Rebound - Extremities Exam Extremities Exam: Full ROM, Normal Capillary Refill, Normal Inspection - Neurological Exam Neurological Exam: Alert, Awake Additional comments: Oriented x1 - Skin Skin Exam: Dry, Intact, Warm Assessment and Plan - Assessment and Plan (Free Text) Assessment: 57 year old male unknown PMHx admitted on 11/29/17 for AMS, right hip cellulitis , multifocal pneumonia, influenza A, strep viridians bacteremia with findings of stroke on MRI - acute vs. 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 Patient was treated for bacteremia with IV abx. Plan: The patient remains to be at his medical and mental baseline at this time. A list of his medical problems and active management can be found below: Anemia Patient with a microcytic anemia Iron level low TIBC wnl Retic count 1.30 Started ferrous sulfate PO BID on 05/26 Continue monitoring for constipation given new onset iron supplement Altered mental status At baseline this morning Cont. delirium precautions PT -patient refusing to participate; instructed PT to try to get pt ambulating Cont ASA 81 QD / LIPITOR 20 QD Dorsal Right Foot Ulcer Bandaged. Non purulent. Podiatry recommendations appreciated Wound care following On [facility] No antibiotics warranted at this time per ID Coag negative Staphylococcus bacteremia - resolved Last bld clx negative 12/04/17 with completion of 6 week course of antibiotics Monitor WBC, ESR, CRP weekly Echocardiogram unable to rule out vegetations, family is unavailable for consent for TAHIR Colonic mass CT Abd/Pelvis showing colonic mass and hepatic lesions GI consulted: follow recs Flex sig/colonoscopy refused by patient Family unable to be contacted for consent Diabetes mellitus type 2 Cont ISS low Cont Metformin 500mg BID Cont accuchecks Carb consistent diet HTN BP Stable, continue to monitor Cont Lisinopril 10 QD Pressures are currently well controlled without Amlodipine 10 mg PO QD Can resume if pressures increase Leukocytosis - RESOLVED WBC elevated 05/17 Patient srinivasan cultured Blood cx negative x2 after 48H Urine cx w/ multiple species ML contaminated Abd U/S - 7mm common bile duct dilatation and gallstones; Hepatic lesions measuring up to 4.9cm and 3.8 cm; compared to prev abd U/S from 12/05 lesions measured 4.1cm and 3.1cm No RUQ tenderness appreciated on exam; ID following, appreciate reccs Affective disorder Cont Celexa 10mg PO Daily Constipation Colace 100mg BID Miralax 17gm BID Hx ETOH Abuse Cont Thiamine Cont Folic Acid Cont Multivitamin DVT Prophylaxis: SCDs Pt seen, examined at bedside, and plan discussed with Dr. Schumacher, attending.
--- NOTE | 2018-06-21 16:30 | CP.PCM.PN ---
Subjective - Date & Time of Evaluation Date of Evaluation: 06/21/18 Time of Evaluation: 10:40 - Subjective Subjective: No fevers, non-toxic. Objective - Vital Signs/Intake and Output Vital Signs (last 24 hours): Temp Pulse Resp BP Pulse Ox 97.8 F 72 20 100/64 95 06/21/18 07:51 06/21/18 09:04 06/21/18 07:51 06/21/18 09:04 06/21/18 07:51 Intake and Output: 06/21/18 06/21/18 06:59 18:59 Intake Total 120 Output Total 3 Balance 117 - Medications Medications: Current Medications Aspirin (Aspirin Chewable) 81 mg PO DAILY [facility] Last Admin: 06/21/18 09:04 Dose: 81 mg Citalopram Hydrobromide (Celexa) 10 mg PO DAILY [facility] Last Admin: 06/21/18 09:04 Dose: 10 mg Collagenase (Santyl) 0 gm TOP DAILY [facility] Last Admin: 06/21/18 09:05 Dose: 1 applic Insulin Human Lispro (Humalog Low) 0 units [place] [facility] PRN Reason: Protocol Last Admin: 06/21/18 12:51 Dose: 2 units Lisinopril (Zestril) 10 mg PO DAILY [facility] Last Admin: 06/21/18 09:04 Dose: 10 mg Pantoprazole Sodium (Protonix Ec Tab) 40 mg PO 0600 [facility] Last Admin: 06/21/18 05:32 Dose: 40 mg Thiamine HCl (Vitamin B1 Tab) 100 mg PO DAILY [facility] Last Admin: 06/21/18 09:04 Dose: 100 mg - Labs Labs: 06/21/18 06:00 06/21/18 06:00 PT 12.5 SECONDS (9.4-12.5) 12/09/17 10:00 INR 1.09 (0.93-1.08) H 12/09/17 10:00 APTT 28.3 Seconds (25.1-36.5) 11/30/17 05:30 - Constitutional Appears: No Acute Distress, Chronically Ill - Head Exam Head Exam: NORMAL INSPECTION - Respiratory Exam Respiratory Exam: Decreased Breath Sounds - Cardiovascular Exam Cardiovascular Exam: +S1, +S2 - GI/Abdominal Exam GI & Abdominal Exam: Soft. absent: Tenderness Assessment and Plan - Assessment and Plan (Free Text) Plan: Assessment S/P systemic inflammatory response syndrome, with no evidence of sepsis or infection, resolved S/P sepsis due to strep viridans and CoNS bacteremia from right gluteal and back cellulitis liver masses noted on ultrasound S/P multifocal HCAP on top of Influenza A infection S/P Sammie infection of sacral area as well peripheral vascular disease Plan continue to monitor clinically off antibiotics since he is at risk for hospital- acquired infections - most recent repeat blood cx are negative, PCT was normal, urine culture showed contamination liver masses noted on ultrasound abdomen - plan as per medical team
[2018-06-22] MEDS: Pantoprazole 40 mg EC Tab PO SCH (05:31)
[2018-06-22] MEDS: Insulin Lispro (humaLOG) LOW Coverage SC SCH ×4 (10:10→23:37)
[2018-06-22] MEDS: Collagenase 250 Units/gm Ointment(30 gm) TOP SCH (10:17)
--- NOTE | 2018-06-22 13:48 | CP.PCM.PN ---
<Jones Weller - Last Filed: 06/22/18 13:40> Subjective - Date & Time of Evaluation Date of Evaluation: 06/22/18 Time of Evaluation: 10:30 - Subjective Subjective: Jones Weller DO PGY-1, Weatherization Technician Medicine Progress Note Pt seen and examined at bedside this am. Denies any acute complaints. Resting comfortably in bed. No acute events reported overnight by entry level staff accountant. 12-point ROS obtained, otherwise neg as per pt. Objective - Vital Signs/Intake and Output Vital Signs (last 24 hours): Temp Pulse Resp BP Pulse Ox 97.6 F 78 20 109/68 97 06/22/18 07:33 06/22/18 10:07 06/22/18 07:33 06/22/18 10:07 06/22/18 07:33 - Medications Medications: Current Medications Aspirin (Aspirin Chewable) 81 mg PO DAILY [facility] Last Admin: 06/22/18 10:07 Dose: 81 mg Citalopram Hydrobromide (Celexa) 10 mg PO DAILY [facility] Last Admin: 06/22/18 10:07 Dose: 10 mg Collagenase (Santyl) 0 gm TOP DAILY [facility] Last Admin: 06/22/18 10:17 Dose: Not Given Insulin Human Lispro (Humalog Low) 0 units SC [facility] PRN Reason: Protocol Last Admin: 06/22/18 10:10 Dose: 1 units Lisinopril (Zestril) 10 mg PO DAILY [facility] Last Admin: 06/22/18 10:07 Dose: 10 mg Pantoprazole Sodium (Protonix Ec Tab) 40 mg PO 0600 [facility] Last Admin: 06/22/18 05:31 Dose: 40 mg Thiamine HCl (Vitamin B1 Tab) 100 mg PO DAILY [facility] Last Admin: 06/22/18 10:07 Dose: 100 mg - Labs Labs: 06/21/18 06:00 06/21/18 06:00 PT 12.5 SECONDS (9.4-12.5) 12/09/17 10:00 INR 1.09 (0.93-1.08) H 12/09/17 10:00 APTT 28.3 Seconds (25.1-36.5) 11/30/17 05:30 - Constitutional Appears: Non-toxic, No Acute Distress - Head Exam Head Exam: ATRAUMATIC, NORMAL INSPECTION - Eye Exam Eye Exam: EOMI, Normal appearance, PERRL - ENT Exam ENT Exam: Mucous Membranes Moist - Respiratory Exam Respiratory Exam: Clear to Ausculation Bilateral, NORMAL BREATHING PATTERN - Cardiovascular Exam Cardiovascular Exam: REGULAR RHYTHM, +S1, +S2 - GI/Abdominal Exam GI & Abdominal Exam: Soft, Normal Bowel Sounds. absent: Distended, Guarding, Rigid, Tenderness - Extremities Exam Extremities Exam: Full ROM, Normal Capillary Refill - Neurological Exam Neurological Exam: Alert, Awake Additional comments: Oriented x1 - Skin Skin Exam: Dry, Intact, Warm Assessment and Plan - Assessment and Plan (Free Text) Assessment: 57 year old male unknown PMHx admitted on 11/29/17 for AMS, right hip cellulitis , multifocal pneumonia, influenza A, strep viridians bacteremia with findings of stroke on MRI - acute vs. 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 Patient was treated for bacteremia with IV abx. Plan: The patient remains to be at his medical and mental baseline at this time. A list of his medical problems and active management can be found below: Anemia Patient with a microcytic anemia Iron level low TIBC wnl Retic count 1.30 Started ferrous sulfate PO BID on 05/26 Continue monitoring for constipation given new onset iron supplement Altered mental status At baseline this morning Cont. delirium precautions PT -patient refusing to participate; instructed PT to try to get pt ambulating Cont ASA 81 QD / LIPITOR 20 QD Dorsal Right Foot Ulcer Bandaged. Non purulent. Podiatry recommendations appreciated Wound care following On [facility] No antibiotics warranted at this time per ID Coag negative Staphylococcus bacteremia - resolved Last bld clx negative 12/04/17 with completion of 6 week course of antibiotics Monitor WBC, ESR, CRP weekly Echocardiogram unable to rule out vegetations, family is unavailable for consent for TAHIR Colonic mass CT Abd/Pelvis showing colonic mass and hepatic lesions GI consulted: follow recs Flex sig/colonoscopy refused by patient Family unable to be contacted for consent Diabetes mellitus type 2 Cont ISS low Cont Metformin 500mg BID Cont accuchecks Carb consistent diet HTN BP Stable, continue to monitor Cont Lisinopril 10 QD Pressures are currently well controlled without Amlodipine 10 mg PO QD Can resume if pressures increase Leukocytosis - RESOLVED WBC elevated 05/17 Patient srinivasan cultured Blood cx negative x2 after 48H Urine cx w/ multiple species ML contaminated Abd U/S - 7mm common bile duct dilatation and gallstones; Hepatic lesions measuring up to 4.9cm and 3.8 cm; compared to prev abd U/S from 12/05 lesions measured 4.1cm and 3.1cm No RUQ tenderness appreciated on exam; ID following, appreciate reccs Affective disorder Cont Celexa 10mg PO Daily Constipation Colace 100mg BID Miralax 17gm BID Hx ETOH Abuse Cont Thiamine Cont Folic Acid Cont Multivitamin DVT Prophylaxis: SCDs Pt seen, examined at bedside, and plan discussed with Dr. Schumacher, attending. <Deanna Schumacher - Last Filed: 06/22/18 17:15> Objective - Vital Signs/Intake and Output Vital Signs (last 24 hours): Temp Pulse Resp BP Pulse Ox 99.1 F 80 19 101/65 97 06/22/18 16:32 06/22/18 16:32 06/22/18 16:32 06/22/18 16:32 06/22/18 16:32 - Medications Medications: Current Medications Aspirin (Aspirin Chewable) 81 mg PO DAILY [facility] Last Admin: 06/22/18 10:07 Dose: 81 mg Citalopram Hydrobromide (Celexa) 10 mg PO DAILY [facility] Last Admin: 06/22/18 10:07 Dose: 10 mg Collagenase (Santyl) 0 gm TOP DAILY [facility] Last Admin: 06/22/18 10:17 Dose: Not Given Insulin Human Lispro (Humalog Low) 0 units SC [facility] PRN Reason: Protocol Last Admin: 06/22/18 11:26 Dose: Not Given Lisinopril (Zestril) 10 mg PO DAILY [facility] Last Admin: 06/22/18 10:07 Dose: 10 mg Pantoprazole Sodium (Protonix Ec Tab) 40 mg PO 0600 [facility] Last Admin: 06/22/18 05:31 Dose: 40 mg Thiamine HCl (Vitamin B1 Tab) 100 mg PO DAILY [facility] Last Admin: 06/22/18 10:07 Dose: 100 mg - Labs Labs: 06/21/18 06:00 06/21/18 06:00 PT 12.5 SECONDS (9.4-12.5) 12/09/17 10:00 INR 1.09 (0.93-1.08) H 12/09/17 10:00 APTT 28.3 Seconds (25.1-36.5) 11/30/17 05:30 Attending/Attestation - Attestation I have personally seen and examined this patient.: Yes I have fully participated in the care of the patient.: Yes I have reviewed all pertinent clinical information, including history, physical exam and plan: Yes Notes (Text): 06/22/18 17:15 Medical record note made by the resident after discussion with my direction and input after the patient was personally seen and examined by me. I have reviewed the chart and agree that the record accurately reflects by personal performance of the history, physical exam, data review, and medical decision-making, in the course for the patient. I have also personally directed the plan of care.
--- NOTE | 2018-06-22 15:56 | CP.PCM.PN ---
Subjective - Date & Time of Evaluation Date of Evaluation: 06/22/18 Time of Evaluation: 10:10 - Subjective Subjective: Comfortable, no fevers. Objective - Vital Signs/Intake and Output Vital Signs (last 24 hours): Temp Pulse Resp BP Pulse Ox 97.6 F 79 20 100/58 L 96 06/21/18 17:14 06/21/18 17:14 06/21/18 17:14 06/21/18 17:14 06/21/18 17:14 - Medications Medications: Current Medications Aspirin (Aspirin Chewable) 81 mg PO DAILY [facility] Last Admin: 06/21/18 09:04 Dose: 81 mg Citalopram Hydrobromide (Celexa) 10 mg PO DAILY [facility] Last Admin: 06/21/18 09:04 Dose: 10 mg Collagenase (Santyl) 0 gm TOP DAILY [facility] Last Admin: 06/21/18 09:05 Dose: 1 applic Insulin Human Lispro (Humalog Low) 0 units SC [facility] PRN Reason: Protocol Last Admin: 06/21/18 21:34 Dose: Not Given Lisinopril (Zestril) 10 mg PO DAILY [facility] Last Admin: 06/21/18 09:04 Dose: 10 mg Pantoprazole Sodium (Protonix Ec Tab) 40 mg PO 0600 [facility] Last Admin: 06/22/18 05:31 Dose: 40 mg Thiamine HCl (Vitamin B1 Tab) 100 mg PO DAILY [facility] Last Admin: 06/21/18 09:04 Dose: 100 mg - Labs Labs: 06/21/18 06:00 06/21/18 06:00 PT 12.5 SECONDS (9.4-12.5) 12/09/17 10:00 INR 1.09 (0.93-1.08) H 12/09/17 10:00 APTT 28.3 Seconds (25.1-36.5) 11/30/17 05:30 - Constitutional Appears: Non-toxic, Chronically Ill - Head Exam Head Exam: NORMAL INSPECTION - ENT Exam ENT Exam: Mucous Membranes Moist - Respiratory Exam Respiratory Exam: Decreased Breath Sounds - Cardiovascular Exam Cardiovascular Exam: +S1, +S2 - GI/Abdominal Exam GI & Abdominal Exam: Soft. absent: Tenderness Assessment and Plan - Assessment and Plan (Free Text) Plan: Assessment S/P systemic inflammatory response syndrome, with no evidence of sepsis or infection, resolved S/P sepsis due to strep viridans and CoNS bacteremia from right gluteal and back cellulitis liver masses noted on ultrasound S/P multifocal HCAP on top of Influenza A infection S/P Sammie infection of sacral area as well peripheral vascular disease Plan continue to monitor clinically off antibiotics since he is at risk for healthcare-associated infections - most recent repeat blood cx are negative, PCT was normal, urine culture showed contamination liver masses noted on ultrasound abdomen - plan as per medical team
[2018-06-23] MEDS: Pantoprazole 40 mg EC Tab PO SCH (05:25)
[2018-06-23] MEDS: Insulin Lispro (humaLOG) LOW Coverage SC SCH ×4 (09:43→21:37)
[2018-06-23] MEDS: Collagenase 250 Units/gm Ointment(30 gm) TOP SCH (09:45)
--- NOTE | 2018-06-23 11:07 | CP.PCM.PN ---
<Vickie Vang - Last Filed: 06/23/18 12:17> Subjective - Date & Time of Evaluation Date of Evaluation: 06/23/18 Time of Evaluation: 11:07 - Subjective Subjective: Podiatry Progress Note - Drs. Oakley/Susan 58 year old male seen and evaluated this AM for right anterior ankle ulceration. Patient resting comfortably at time of visit, NAD. No acute events overnight. DEE stockings present bilaterally with optifoam to right ankle. Patient offers no new complaints. Denies N/V/F/D/C/SOB/DIXON. Objective - Vital Signs/Intake and Output Vital Signs (last 24 hours): Temp Pulse Resp BP Pulse Ox 97.7 F 83 20 111/67 100 06/23/18 08:30 06/23/18 09:44 06/23/18 08:30 06/23/18 09:44 06/23/18 08:30 Intake and Output: 06/23/18 06/23/18 06:59 18:59 Intake Total 1200 Balance 1200 - Medications Medications: Current Medications Aspirin (Aspirin Chewable) 81 mg PO DAILY [facility] Last Admin: 06/23/18 09:42 Dose: 81 mg Citalopram Hydrobromide (Celexa) 10 mg PO DAILY [facility] Last Admin: 06/23/18 09:42 Dose: 10 mg Collagenase (Santyl) 0 gm TOP DAILY [facility] Last Admin: 06/23/18 09:45 Dose: Not Given Insulin Human Lispro (Humalog Low) 0 units SC [facility] PRN Reason: Protocol Last Admin: 06/23/18 09:43 Dose: Not Given Lisinopril (Zestril) 10 mg PO DAILY [facility] Last Admin: 06/23/18 09:44 Dose: 10 mg Pantoprazole Sodium (Protonix Ec Tab) 40 mg PO 0600 [facility] Last Admin: 06/23/18 05:25 Dose: 40 mg Thiamine HCl (Vitamin B1 Tab) 100 mg PO DAILY [facility] Last Admin: 06/23/18 09:44 Dose: 100 mg - Labs Labs: 06/21/18 06:00 06/21/18 06:00 PT 12.5 SECONDS (9.4-12.5) 12/09/17 10:00 INR 1.09 (0.93-1.08) H 12/09/17 10:00 APTT 28.3 Seconds (25.1-36.5) 11/30/17 05:30 - Constitutional Appears: Well, Non-toxic, No Acute Distress - Extremities Exam Additional comments: Bilateral lower extremity physical exam: DEE compression stockings b/l with optifoam to right ankle Vasc: DP and PT pulses weakly palpable 1/4 bilaterally, CFT delayed > 3 seconds x10. Temperature gradient cool to cool bilaterally. No edema noted. Neuro: Gross sensation intact bilaterally. Derm: Linear ulceration noted to anterior aspect of right ankle measuring approximately 2 x 1 cm is epithelializing; no periwound erythema noted; no drainage; no purulence; no fluctuance; no malodor; no clinical signs of infection noted. Abrasion to left anterior ankle resolved. Ortho: No pain on palpation noted to lower extremities. No calf pain or tenderness appreciated. - Neurological Exam Neurological Exam: Alert, Awake - Psychiatric Exam Psychiatric exam: Normal Affect, Normal Mood Assessment and Plan - Assessment and Plan (Free Text) Assessment: 58 year old male seen and evaluated for right anterior ankle ulceration Plan: Patient seen and evaluated alongside attending, Dr. Oakley VSS Continue local wound care QOD - RLE bactroban, optifoam; d/c dressing to LLE Discontinue DEE stockings b/l to prevent further breakdown of anterior ankle\ Patient is stable from Podiatry standpoint No plan for surgical intervention at this time Podiatry will continue to follow <Ivania Oakley - Last Filed: 06/26/18 15:12> Objective - Vital Signs/Intake and Output Vital Signs (last 24 hours): Temp Pulse Resp BP Pulse Ox 97.5 F L 67 20 113/73 97 06/26/18 08:34 06/26/18 10:53 06/26/18 08:34 06/26/18 10:53 06/26/18 08:34 Intake and Output: 06/26/18 06/26/18 06:59 18:59 Intake Total 1070 1310 Balance 1070 1310 - Medications Medications: Current Medications Aspirin (Aspirin Chewable) 81 mg PO DAILY [facility] Last Admin: 06/26/18 10:52 Dose: 81 mg Citalopram Hydrobromide (Celexa) 10 mg PO DAILY [facility] Last Admin: 06/26/18 10:53 Dose: 10 mg Collagenase (Santyl) 0 gm TOP DAILY [facility] Last Admin: 06/26/18 10:53 Dose: Not Given Insulin Human Lispro (Humalog Low) 0 units SC [facility] PRN Reason: Protocol Last Admin: 06/26/18 08:07 Dose: Not Given Lisinopril (Zestril) 10 mg PO DAILY [facility] Last Admin: 06/26/18 10:53 Dose: 10 mg Pantoprazole Sodium (Protonix Ec Tab) 40 mg PO 0600 [facility] Last Admin: 06/26/18 05:28 Dose: 40 mg Thiamine HCl (Vitamin B1 Tab) 100 mg PO DAILY [facility] Last Admin: 06/26/18 10:53 Dose: 100 mg - Labs Labs: 06/21/18 06:00 06/21/18 06:00 PT 12.5 SECONDS (9.4-12.5) 12/09/17 10:00 INR 1.09 (0.93-1.08) H 12/09/17 10:00 APTT 28.3 Seconds (25.1-36.5) 11/30/17 05:30 Attending/Attestation - Attestation I have personally seen and examined this patient.: Yes I have fully participated in the care of the patient.: Yes I have reviewed all pertinent clinical information, including history, physical exam and plan: Yes
--- NOTE | 2018-06-23 17:34 | CP.PCM.PN ---
<Jones Weller - Last Filed: 06/23/18 17:30> Subjective - Date & Time of Evaluation Date of Evaluation: 06/23/18 Time of Evaluation: 07:50 - Subjective Subjective: Jones Weller DO PGY-1, Air Export Operations Agent Medicine Progress Note Pt seen and examined at bedside this am. Denies any acute complaints, resting comfortably in bed, no acute distress. No acute events reported overnight by staff research scientist. 12-point ROS obtained, otherwise neg as per pt. Objective - Vital Signs/Intake and Output Vital Signs (last 24 hours): Temp Pulse Resp BP Pulse Ox 97.7 F 83 20 111/67 100 06/23/18 08:30 06/23/18 09:44 06/23/18 08:30 06/23/18 09:44 06/23/18 08:30 Intake and Output: 06/23/18 06/23/18 06:59 18:59 Intake Total 1200 Balance 1200 - Medications Medications: Current Medications Aspirin (Aspirin Chewable) 81 mg PO DAILY [facility] Last Admin: 06/23/18 09:42 Dose: 81 mg Citalopram Hydrobromide (Celexa) 10 mg PO DAILY [facility] Last Admin: 06/23/18 09:42 Dose: 10 mg Collagenase (Santyl) 0 gm TOP DAILY [facility] Last Admin: 06/23/18 09:45 Dose: Not Given Insulin Human Lispro (Humalog Low) [address] [facility] PRN Reason: Protocol Last Admin: 06/23/18 17:07 Dose: Not Given Lisinopril (Zestril) 10 mg PO DAILY [facility] Last Admin: 06/23/18 09:44 Dose: 10 mg Pantoprazole Sodium (Protonix Ec Tab) 40 mg PO 0600 [facility] Last Admin: 06/23/18 05:25 Dose: 40 mg Thiamine HCl (Vitamin B1 Tab) 100 mg PO DAILY [facility] Last Admin: 06/23/18 09:44 Dose: 100 mg - Labs Labs: 06/21/18 06:00 06/21/18 06:00 PT 12.5 SECONDS (9.4-12.5) 12/09/17 10:00 INR 1.09 (0.93-1.08) H 12/09/17 10:00 APTT 28.3 Seconds (25.1-36.5) 11/30/17 05:30 - Constitutional Appears: Non-toxic, No Acute Distress - Head Exam Head Exam: ATRAUMATIC, NORMAL INSPECTION - Eye Exam Eye Exam: EOMI, Normal appearance, PERRL - ENT Exam ENT Exam: Mucous Membranes Moist - Respiratory Exam Respiratory Exam: Clear to Ausculation Bilateral, NORMAL BREATHING PATTERN - Cardiovascular Exam Cardiovascular Exam: REGULAR RHYTHM, +S1, +S2 - GI/Abdominal Exam GI & Abdominal Exam: Soft, Normal Bowel Sounds. absent: Distended, Guarding, Tenderness, Organomegaly, Rebound - Extremities Exam Extremities Exam: Full ROM, Normal Capillary Refill, Normal Inspection - Neurological Exam Neurological Exam: Alert, Awake, CN II-XII Intact Additional comments: Oriented x2 - Skin Skin Exam: Dry, Intact, Warm Assessment and Plan - Assessment and Plan (Free Text) Assessment: 57 year old male unknown PMHx admitted on 11/29/17 for AMS, right hip cellulitis , multifocal pneumonia, influenza A, strep viridians bacteremia with findings of stroke on MRI - acute vs. 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 Patient was treated for bacteremia with IV abx. Plan: The patient remains to be at his medical and mental baseline at this time. A list of his medical problems and active management can be found below: Anemia Patient with a microcytic anemia Iron level low TIBC wnl Retic count 1.30 Started ferrous sulfate PO BID on 05/26 Continue monitoring for constipation given new onset iron supplement Altered mental status At baseline this morning Cont. delirium precautions PT -patient refusing to participate; instructed PT to try to get pt ambulating Cont ASA 81 QD / LIPITOR 20 QD Dorsal Right Foot Ulcer Bandaged. Non purulent. Podiatry recommendations appreciated Wound care following On [facility] No antibiotics warranted at this time per ID Coag negative Staphylococcus bacteremia - resolved Last bld clx negative 12/04/17 with completion of 6 week course of antibiotics Monitor WBC, ESR, CRP weekly Echocardiogram unable to rule out vegetations, family is unavailable for consent for TAHIR Colonic mass CT Abd/Pelvis showing colonic mass and hepatic lesions GI consulted: follow recs Flex sig/colonoscopy refused by patient Family unable to be contacted for consent Diabetes mellitus type 2 Cont ISS low Cont Metformin 500mg BID Cont accuchecks Carb consistent diet HTN BP Stable, continue to monitor Cont Lisinopril 10 QD Pressures are currently well controlled without Amlodipine 10 mg PO QD Can resume if pressures increase Leukocytosis - RESOLVED WBC elevated 05/17 Patient srinivasan cultured Blood cx negative x2 after 48H Urine cx w/ multiple species ML contaminated Abd U/S - 7mm common bile duct dilatation and gallstones; Hepatic lesions measuring up to 4.9cm and 3.8 cm; compared to prev abd U/S from 12/05 lesions measured 4.1cm and 3.1cm No RUQ tenderness appreciated on exam; ID following, appreciate reccs Affective disorder Cont Celexa 10mg PO Daily Constipation Colace 100mg BID Miralax 17gm BID Hx ETOH Abuse Cont Thiamine Cont Folic Acid Cont Multivitamin DVT Prophylaxis: SCDs Pt seen, examined at bedside, and plan discussed with Dr. Schumacher, attending. <Deanna Schumacher - Last Filed: 06/25/18 13:36> Objective - Vital Signs/Intake and Output Vital Signs (last 24 hours): Temp Pulse Resp BP Pulse Ox 98.1 F 83 20 117/77 97 06/25/18 07:55 06/25/18 10:36 06/25/18 07:55 06/25/18 10:36 06/25/18 07:55 Intake and Output: 06/25/18 06/25/18 06:59 18:59 Intake Total 240 Balance 240 - Medications Medications: Current Medications Aspirin (Aspirin Chewable) 81 mg PO DAILY [facility] Last Admin: 06/25/18 10:35 Dose: 81 mg Citalopram Hydrobromide (Celexa) 10 mg PO DAILY [facility] Last Admin: 06/25/18 10:35 Dose: 10 mg Collagenase (Santyl) 0 gm TOP DAILY [facility] Last Admin: 06/24/18 10:09 Dose: Not Given Insulin Human Lispro (Humalog Low) [address] [facility] PRN Reason: Protocol Last Admin: 06/25/18 12:38 Dose: Not Given Lisinopril (Zestril) 10 mg PO DAILY [facility] Last Admin: 06/25/18 10:36 Dose: 10 mg Pantoprazole Sodium (Protonix Ec Tab) 40 mg PO 0600 [facility] Last Admin: 06/25/18 05:55 Dose: 40 mg Thiamine HCl (Vitamin B1 Tab) 100 mg PO DAILY [facility] Last Admin: 06/25/18 10:36 Dose: 100 mg - Labs Labs: 06/21/18 06:00 06/21/18 06:00 PT 12.5 SECONDS (9.4-12.5) 12/09/17 10:00 INR 1.09 (0.93-1.08) H 12/09/17 10:00 APTT 28.3 Seconds (25.1-36.5) 11/30/17 05:30 Attending/Attestation - Attestation I have personally seen and examined this patient.: Yes I have fully participated in the care of the patient.: Yes I have reviewed all pertinent clinical information, including history, physical exam and plan: Yes Notes (Text): 06/25/18 13:35 Medical record note made by the resident after discussion with my direction and input after the patient was personally seen and examined by me. I have reviewed the chart and agree that the record accurately reflects by personal performance of the history, physical exam, data review, and medical decision-making, in the course for the patient. I have also personally directed the plan of care. 57 yrs old male , S/P sepsis due to strep viridans and Cogulase negative bacteremia from right gluteal and back cellulitis, S/P multifocal HCAP on top of Influenza A infection and S/P Sammie infection of sacral area as well. Mental status is at base line, has advance demetia, has poor insight for his medical and living conndition. Patient is awaiting for placement. Prognosis is guarded.
--- NOTE | 2018-06-23 17:42 | CP.PCM.PN ---
Subjective - Date & Time of Evaluation Date of Evaluation: 06/23/18 Time of Evaluation: 10:45 - Subjective Subjective: No fevers, not in distress. Objective - Vital Signs/Intake and Output Vital Signs (last 24 hours): Temp Pulse Resp BP Pulse Ox 97.7 F 83 20 111/67 100 06/23/18 08:30 06/23/18 09:44 06/23/18 08:30 06/23/18 09:44 06/23/18 08:30 Intake and Output: 06/23/18 06/23/18 06:59 18:59 Intake Total 1200 Balance 1200 - Medications Medications: Current Medications Aspirin (Aspirin Chewable) 81 mg PO DAILY [facility] Last Admin: 06/23/18 09:42 Dose: 81 mg Citalopram Hydrobromide (Celexa) 10 mg PO DAILY [facility] Last Admin: 06/23/18 09:42 Dose: 10 mg Collagenase (Santyl) 0 gm TOP DAILY [facility] Last Admin: 06/23/18 09:45 Dose: Not Given Insulin Human Lispro (Humalog Low) 0 units SC [facility] PRN Reason: Protocol Last Admin: 06/23/18 09:43 Dose: Not Given Lisinopril (Zestril) 10 mg PO DAILY [facility] Last Admin: 06/23/18 09:44 Dose: 10 mg Pantoprazole Sodium (Protonix Ec Tab) 40 mg PO 0600 [facility] Last Admin: 06/23/18 05:25 Dose: 40 mg Thiamine HCl (Vitamin B1 Tab) 100 mg PO DAILY [facility] Last Admin: 06/23/18 09:44 Dose: 100 mg - Labs Labs: 06/21/18 06:00 06/21/18 06:00 PT 12.5 SECONDS (9.4-12.5) 12/09/17 10:00 INR 1.09 (0.93-1.08) H 12/09/17 10:00 APTT 28.3 Seconds (25.1-36.5) 11/30/17 05:30 - Constitutional Appears: Chronically Ill - Head Exam Head Exam: NORMAL INSPECTION - Neck Exam Neck Exam: absent: Meningismus - Respiratory Exam Respiratory Exam: Decreased Breath Sounds - Cardiovascular Exam Cardiovascular Exam: +S1, +S2 - GI/Abdominal Exam GI & Abdominal Exam: Soft. absent: Tenderness Assessment and Plan - Assessment and Plan (Free Text) Plan: Assessment S/P systemic inflammatory response syndrome, with no evidence of sepsis or infection, resolved S/P sepsis due to strep viridans and CoNS bacteremia from right gluteal and back cellulitis liver masses noted on ultrasound S/P multifocal HCAP on top of Influenza A infection S/P Sammie infection of sacral area as well peripheral vascular disease Plan continue to monitor clinically off antibiotics since he is at risk for nosocomial infections - most recent repeat blood cx are negative, PCT was normal , urine culture showed contamination liver masses noted on ultrasound abdomen - plan as per medical team
[2018-06-24] MEDS: Pantoprazole 40 mg EC Tab PO SCH (05:53)
[2018-06-24] MEDS: Insulin Lispro (humaLOG) LOW Coverage SC SCH ×4 (08:10→22:30)
[2018-06-24] MEDS: Collagenase 250 Units/gm Ointment(30 gm) TOP SCH (10:09)
--- NOTE | 2018-06-24 11:53 | CP.PCM.PN ---
<Jones Weller - Last Filed: 06/24/18 19:47> Subjective - Date & Time of Evaluation Date of Evaluation: 06/24/18 Time of Evaluation: 07:40 - Subjective Subjective: Jonse Weller DO PGY-1, Chief [employer] Medicine Progress Note Pt seen and examined at bedside this am. Denies any acute complaints, resting comfortably in bed, no acute distress. No acute events reported overnight by medical staff physician. 12-point ROS obtained, otherwise neg as per pt. Objective - Vital Signs/Intake and Output Vital Signs (last 24 hours): Temp Pulse Resp BP Pulse Ox 97.5 F L 80 20 110/72 97 06/24/18 06:00 06/24/18 10:10 06/24/18 06:00 06/24/18 10:10 06/24/18 06:00 Intake and Output: 06/24/18 06/24/18 06:59 18:59 Intake Total 120 Balance 120 - Medications Medications: Current Medications Aspirin (Aspirin Chewable) 81 mg PO DAILY [facility] Last Admin: 06/24/18 10:08 Dose: 81 mg Citalopram Hydrobromide (Celexa) 10 mg PO DAILY [facility] Last Admin: 06/24/18 10:09 Dose: 10 mg Collagenase (Santyl) 0 gm TOP DAILY [facility] Last Admin: 06/24/18 10:09 Dose: Not Given Insulin Human Lispro (Humalog Low) 0 units SC [facility] PRN Reason: Protocol Last Admin: 06/24/18 08:10 Dose: Not Given Lisinopril (Zestril) 10 mg PO DAILY [facility] Last Admin: 06/24/18 10:10 Dose: 10 mg Pantoprazole Sodium (Protonix Ec Tab) 40 mg PO 0600 [facility] Last Admin: 06/24/18 05:53 Dose: Not Given Thiamine HCl (Vitamin B1 Tab) 100 mg PO DAILY [facility] Last Admin: 06/24/18 10:09 Dose: 100 mg - Labs Labs: 06/21/18 06:00 06/21/18 06:00 PT 12.5 SECONDS (9.4-12.5) 12/09/17 10:00 INR 1.09 (0.93-1.08) H 12/09/17 10:00 APTT 28.3 Seconds (25.1-36.5) 11/30/17 05:30 - Constitutional Appears: Non-toxic, No Acute Distress - Head Exam Head Exam: ATRAUMATIC, NORMAL INSPECTION - Eye Exam Eye Exam: EOMI, Normal appearance, PERRL - ENT Exam ENT Exam: Mucous Membranes Moist - Respiratory Exam Respiratory Exam: Clear to Ausculation Bilateral, NORMAL BREATHING PATTERN - Cardiovascular Exam Cardiovascular Exam: REGULAR RHYTHM, +S1, +S2 - GI/Abdominal Exam GI & Abdominal Exam: Soft, Normal Bowel Sounds. absent: Tenderness - Extremities Exam Extremities Exam: Full ROM, Normal Capillary Refill, Normal Inspection - Neurological Exam Neurological Exam: Alert, Awake Additional comments: AAOx2 - Skin Skin Exam: Dry, Intact, Warm Assessment and Plan - Assessment and Plan (Free Text) Assessment: 57 year old male unknown PMHx admitted on 11/29/17 for AMS, right hip cellulitis , multifocal pneumonia, influenza A, strep viridians bacteremia with findings of stroke on MRI - acute vs. 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 Patient was treated for bacteremia with IV abx. Plan: The patient remains to be at his medical and mental baseline at this time. A list of his medical problems and active management can be found below: Anemia Patient with a microcytic anemia Iron level low TIBC wnl Retic count 1.30 Started ferrous sulfate PO BID on 05/26 Continue monitoring for constipation given new onset iron supplement Altered mental status At baseline this morning Cont. delirium precautions PT -patient refusing to participate; instructed PT to try to get pt ambulating Cont ASA 81 QD / LIPITOR 20 QD Dorsal Right Foot Ulcer Bandaged. Non purulent. Podiatry recommendations appreciated Wound care following On the [facility] No antibiotics warranted at this time per ID Coag negative Staphylococcus bacteremia - resolved Last bld clx negative 12/04/17 with completion of 6 week course of antibiotics Monitor WBC, ESR, CRP weekly Echocardiogram unable to rule out vegetations, family is unavailable for consent for TAHIR Colonic mass CT Abd/Pelvis showing colonic mass and hepatic lesions GI consulted: follow recs Flex sig/colonoscopy refused by patient Family unable to be contacted for consent Diabetes mellitus type 2 Cont ISS low Cont Metformin 500mg BID Cont accuchecks Carb consistent diet HTN BP Stable, continue to monitor Cont Lisinopril 10 QD Pressures are currently well controlled without Amlodipine 10 mg PO QD Can resume if pressures increase Leukocytosis - RESOLVED WBC elevated 05/17 Patient srinivasan cultured Blood cx negative x2 after 48H Urine cx w/ multiple species ML contaminated Abd U/S - 7mm common bile duct dilatation and gallstones; Hepatic lesions measuring up to 4.9cm and 3.8 cm; compared to prev abd U/S from 12/05 lesions measured 4.1cm and 3.1cm No RUQ tenderness appreciated on exam; ID following, appreciate reccs Affective disorder Cont Celexa 10mg PO Daily Constipation Colace 100mg BID Miralax 17gm BID Hx ETOH Abuse Cont Thiamine Cont Folic Acid Cont Multivitamin DVT Prophylaxis: SCDs Pt seen, examined at bedside, and plan discussed with Dr. Schumacher, attending. <Deanna Schumacher - Last Filed: 06/25/18 13:36> Objective - Vital Signs/Intake and Output Vital Signs (last 24 hours): Temp Pulse Resp BP Pulse Ox 98.1 F 83 20 117/77 97 06/25/18 07:55 06/25/18 10:36 06/25/18 07:55 06/25/18 10:36 06/25/18 07:55 Intake and Output: 06/25/18 06/25/18 06:59 18:59 Intake Total 240 Balance 240 - Medications Medications: Current Medications Aspirin (Aspirin Chewable) 81 mg PO DAILY [facility] Last Admin: 06/25/18 10:35 Dose: 81 mg Citalopram Hydrobromide (Celexa) 10 mg PO DAILY [facility] Last Admin: 06/25/18 10:35 Dose: 10 mg Collagenase (Santyl) 0 gm TOP DAILY [facility] Last Admin: 06/24/18 10:09 Dose: Not Given Insulin Human Lispro (Humalog Low) 0 units SC [facility] PRN Reason: Protocol Last Admin: 06/25/18 12:38 Dose: Not Given Lisinopril (Zestril) 10 mg PO DAILY [facility] Last Admin: 06/25/18 10:36 Dose: 10 mg Pantoprazole Sodium (Protonix Ec Tab) 40 mg PO 0600 [facility] Last Admin: 06/25/18 05:55 Dose: 40 mg Thiamine HCl (Vitamin B1 Tab) 100 mg PO DAILY [facility] Last Admin: 06/25/18 10:36 Dose: 100 mg - Labs Labs: 06/21/18 06:00 06/21/18 06:00 PT 12.5 SECONDS (9.4-12.5) 12/09/17 10:00 INR 1.09 (0.93-1.08) H 12/09/17 10:00 APTT 28.3 Seconds (25.1-36.5) 11/30/17 05:30 Attending/Attestation - Attestation I have personally seen and examined this patient.: Yes I have fully participated in the care of the patient.: Yes I have reviewed all pertinent clinical information, including history, physical exam and plan: Yes Notes (Text): 06/25/18 13:36 Medical record note made by the resident after discussion with my direction and input after the patient was personally seen and examined by me. I have reviewed the chart and agree that the record accurately reflects by personal performance of the history, physical exam, data review, and medical decision-making, in the course for the patient. I have also personally directed the plan of care.
--- NOTE | 2018-06-24 15:18 | CP.PCM.PN ---
Subjective - Date & Time of Evaluation Date of Evaluation: 06/24/18 Time of Evaluation: 13:45 - Subjective Subjective: No fevers, not in distress. Objective - Vital Signs/Intake and Output Vital Signs (last 24 hours): Temp Pulse Resp BP Pulse Ox 97.5 F L 80 20 110/72 97 06/24/18 06:00 06/24/18 10:10 06/24/18 06:00 06/24/18 10:10 06/24/18 06:00 Intake and Output: 06/24/18 06/24/18 06:59 18:59 Intake Total 120 Balance 120 - Medications Medications: Current Medications Aspirin (Aspirin Chewable) 81 mg PO DAILY [facility] Last Admin: 06/24/18 10:08 Dose: 81 mg Citalopram Hydrobromide (Celexa) 10 mg PO DAILY [facility] Last Admin: 06/24/18 10:09 Dose: 10 mg Collagenase (Santyl) 0 gm TOP DAILY [facility] Last Admin: 06/24/18 10:09 Dose: Not Given Insulin Human Lispro (Humalog Low) 0 units SC [facility] PRN Reason: Protocol Last Admin: 06/24/18 12:33 Dose: Not Given Lisinopril (Zestril) 10 mg PO DAILY [facility] Last Admin: 06/24/18 10:10 Dose: 10 mg Pantoprazole Sodium (Protonix Ec Tab) 40 mg PO 0600 [facility] Last Admin: 06/24/18 05:53 Dose: Not Given Thiamine HCl (Vitamin B1 Tab) 100 mg PO DAILY [facility] Last Admin: 06/24/18 10:09 Dose: 100 mg - Labs Labs: 06/21/18 06:00 06/21/18 06:00 PT 12.5 SECONDS (9.4-12.5) 12/09/17 10:00 INR 1.09 (0.93-1.08) H 12/09/17 10:00 APTT 28.3 Seconds (25.1-36.5) 11/30/17 05:30 - Constitutional Appears: Chronically Ill - Head Exam Head Exam: NORMAL INSPECTION - Respiratory Exam Respiratory Exam: Decreased Breath Sounds - Cardiovascular Exam Cardiovascular Exam: +S1, +S2 - GI/Abdominal Exam GI & Abdominal Exam: Soft. absent: Tenderness Assessment and Plan - Assessment and Plan (Free Text) Plan: Assessment S/P systemic inflammatory response syndrome, with no evidence of sepsis or infection, resolved S/P sepsis due to strep viridans and CoNS bacteremia from right gluteal and back cellulitis liver masses noted on ultrasound S/P multifocal HCAP on top of Influenza A infection S/P Sammie infection of sacral area as well peripheral vascular disease Plan continue to monitor clinically off antibiotics since he is at risk for hospital- acquired infections - most recent repeat blood cx are negative, PCT was normal, urine culture showed contamination liver masses noted on ultrasound abdomen - plan as per medical team
[2018-06-25] MEDS: Pantoprazole 40 mg EC Tab PO SCH (05:55)
[2018-06-25] MEDS: Insulin Lispro (humaLOG) LOW Coverage SC SCH ×4 (07:35→21:47)
--- NOTE | 2018-06-25 11:41 | CP.PCM.PN ---
<Jorge Luis Lopez - Last Filed: 06/25/18 11:42> Subjective - Date & Time of Evaluation Date of Evaluation: 06/25/18 Time of Evaluation: 08:30 - Subjective Subjective: Progress note for hospitalist Dr. Endy Lopez PGY2 Patient seen and examined at bedside in no acute distress offering no complaints. 12-point ROS obtained, otherwise neg as per pt. Physical Exam - Constitutional Appears: Non-toxic, No Acute Distress - Head Exam Head Exam: ATRAUMATIC, NORMAL INSPECTION - Eye Exam Eye Exam: EOMI, Normal appearance, PERRL - ENT Exam ENT Exam: Mucous Membranes Moist - Respiratory Exam Respiratory Exam: Clear to Ausculation Bilateral, NORMAL BREATHING PATTERN - Cardiovascular Exam Cardiovascular Exam: REGULAR RHYTHM, +S1, +S2 - GI/Abdominal Exam GI & Abdominal Exam: Soft, Normal Bowel Sounds. absent: Tenderness - Extremities Exam Extremities Exam: Full ROM, Normal Capillary Refill, Normal Inspection - Neurological Exam Neurological Exam: Alert, Awake Additional comments: AAOx2 - Skin Skin Exam: Dry, Intact, Warm Objective - Vital Signs/Intake and Output Vital Signs (last 24 hours): Temp Pulse Resp BP Pulse Ox 98.1 F 83 20 117/77 97 06/25/18 07:55 06/25/18 10:36 06/25/18 07:55 06/25/18 10:36 06/25/18 07:55 Intake and Output: 06/25/18 06/25/18 06:59 18:59 Intake Total 240 Balance 240 - Medications Medications: Current Medications Aspirin (Aspirin Chewable) 81 mg PO DAILY [facility] Last Admin: 06/25/18 10:35 Dose: 81 mg Citalopram Hydrobromide (Celexa) 10 mg PO DAILY [facility] Last Admin: 06/25/18 10:35 Dose: 10 mg Collagenase (Santyl) 0 gm TOP DAILY [facility] Last Admin: 06/24/18 10:09 Dose: Not Given Insulin Human Lispro (Humalog Low) 0 units SC [facility] PRN Reason: Protocol Last Admin: 06/25/18 07:35 Dose: 1 units Lisinopril (Zestril) 10 mg PO DAILY [facility] Last Admin: 06/25/18 10:36 Dose: 10 mg Pantoprazole Sodium (Protonix Ec Tab) 40 mg PO 0600 [facility] Last Admin: 06/25/18 05:55 Dose: 40 mg Thiamine HCl (Vitamin B1 Tab) 100 mg PO DAILY [facility] Last Admin: 06/25/18 10:36 Dose: 100 mg - Labs Labs: 06/21/18 06:00 06/21/18 06:00 PT 12.5 SECONDS (9.4-12.5) 12/09/17 10:00 INR 1.09 (0.93-1.08) H 12/09/17 10:00 APTT 28.3 Seconds (25.1-36.5) 11/30/17 05:30 Assessment and Plan - Assessment and Plan (Free Text) Assessment: Assessment: 57 year old male unknown PMHx admitted on 11/29/17 for AMS, right hip cellulitis , multifocal pneumonia, influenza A, strep viridians bacteremia with findings of stroke on MRI - acute vs. 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 Patient was treated for bacteremia with IV abx. Plan: The patient remains to be at his medical and mental baseline at this time. A list of his medical problems and active management can be found below: Anemia Patient with a microcytic anemia Iron level low TIBC wnl Retic count 1.30 Started ferrous sulfate PO BID on 05/26 Continue monitoring for constipation given new onset iron supplement Altered mental status At baseline this morning Cont. delirium precautions PT -patient refusing to participate; however was able to get out of bed to chair last weekend Cont ASA 81 QD / LIPITOR 20 QD Dorsal Right Foot Ulcer Bandaged. Non purulent. Podiatry recommendations appreciated Wound care following [facility] No antibiotics warranted at this time per ID Coag negative Staphylococcus bacteremia - resolved Last bld clx negative 12/04/17 with completion of 6 week course of antibiotics Monitor WBC, ESR, CRP weekly Echocardiogram unable to rule out vegetations, family is unavailable for consent for TAHIR Colonic mass CT Abd/Pelvis showing colonic mass and hepatic lesions GI consulted: follow recs Flex sig/colonoscopy refused by patient Family unable to be contacted for consent Diabetes mellitus type 2 Cont ISS low Cont Metformin 500mg BID Cont accuchecks Carb consistent diet HTN BP Stable, continue to monitor Cont Lisinopril 10 QD Pressures are currently well controlled without Amlodipine 10 mg PO QD Can resume if pressures increase Leukocytosis - RESOLVED WBC elevated 05/17 Patient srinivasan cultured Blood cx negative x2 after 48H Urine cx w/ multiple species ML contaminated Abd U/S - 7mm common bile duct dilatation and gallstones; Hepatic lesions measuring up to 4.9cm and 3.8 cm; compared to prev abd U/S from 12/05 lesions measured 4.1cm and 3.1cm No RUQ tenderness appreciated on exam; ID following, appreciate reccs Affective disorder Cont Celexa 10mg PO Daily Constipation Colace 100mg BID Miralax 17gm BID Hx ETOH Abuse Cont Thiamine Cont Folic Acid Cont Multivitamin DVT Prophylaxis: SCDs Pt seen, examined at bedside, and plan discussed with Dr. Schumacher, attending. <Deanna Schumacher - Last Filed: 06/25/18 13:37> Objective - Vital Signs/Intake and Output Vital Signs (last 24 hours): Temp Pulse Resp BP Pulse Ox 98.1 F 83 20 117/77 97 06/25/18 07:55 06/25/18 10:36 06/25/18 07:55 06/25/18 10:36 06/25/18 07:55 Intake and Output: 06/25/18 06/25/18 06:59 18:59 Intake Total 240 Balance 240 - Medications Medications: Current Medications Aspirin (Aspirin Chewable) 81 mg PO DAILY [facility] Last Admin: 06/25/18 10:35 Dose: 81 mg Citalopram Hydrobromide (Celexa) 10 mg PO DAILY [facility] Last Admin: 06/25/18 10:35 Dose: 10 mg Collagenase (Santyl) 0 gm TOP DAILY [facility] Last Admin: 06/24/18 10:09 Dose: Not Given Insulin Human Lispro (Humalog Low) 0 units SC [facility] PRN Reason: Protocol Last Admin: 06/25/18 12:38 Dose: Not Given Lisinopril (Zestril) 10 mg PO DAILY [facility] Last Admin: 06/25/18 10:36 Dose: 10 mg Pantoprazole Sodium (Protonix Ec Tab) 40 mg PO 0600 [facility] Last Admin: 06/25/18 05:55 Dose: 40 mg Thiamine HCl (Vitamin B1 Tab) 100 mg PO DAILY [facility] Last Admin: 06/25/18 10:36 Dose: 100 mg - Labs Labs: 06/21/18 06:00 06/21/18 06:00 PT 12.5 SECONDS (9.4-12.5) 12/09/17 10:00 INR 1.09 (0.93-1.08) H 12/09/17 10:00 APTT 28.3 Seconds (25.1-36.5) 11/30/17 05:30 Attending/Attestation - Attestation I have personally seen and examined this patient.: Yes I have fully participated in the care of the patient.: Yes I have reviewed all pertinent clinical information, including history, physical exam and plan: Yes
--- NOTE | 2018-06-25 13:04 | CP.PCM.PN ---
Subjective - Date & Time of Evaluation Date of Evaluation: 06/25/18 Time of Evaluation: 12:35 - Subjective Subjective: Afebrile, non-toxic. Objective - Vital Signs/Intake and Output Vital Signs (last 24 hours): Temp Pulse Resp BP Pulse Ox 97.5 F L 80 20 110/72 97 06/24/18 06:00 06/24/18 10:10 06/24/18 06:00 06/24/18 10:10 06/24/18 06:00 Intake and Output: 06/24/18 06/24/18 06:59 18:59 Intake Total 120 Balance 120 - Medications Medications: Current Medications Aspirin (Aspirin Chewable) 81 mg PO DAILY [facility] Last Admin: 06/24/18 10:08 Dose: 81 mg Citalopram Hydrobromide (Celexa) 10 mg PO DAILY [facility] Last Admin: 06/24/18 10:09 Dose: 10 mg Collagenase (Santyl) 0 gm TOP DAILY [facility] Last Admin: 06/24/18 10:09 Dose: Not Given Insulin Human Lispro (Humalog Low) 0 units SC [facility] PRN Reason: Protocol Last Admin: 06/24/18 12:33 Dose: Not Given Lisinopril (Zestril) 10 mg PO DAILY [facility] Last Admin: 06/24/18 10:10 Dose: 10 mg Pantoprazole Sodium (Protonix Ec Tab) 40 mg PO 0600 [facility] Last Admin: 06/24/18 05:53 Dose: Not Given Thiamine HCl (Vitamin B1 Tab) 100 mg PO DAILY [facility] Last Admin: 06/24/18 10:09 Dose: 100 mg - Labs Labs: 06/21/18 06:00 06/21/18 06:00 PT 12.5 SECONDS (9.4-12.5) 12/09/17 10:00 INR 1.09 (0.93-1.08) H 12/09/17 10:00 APTT 28.3 Seconds (25.1-36.5) 11/30/17 05:30 - Constitutional Appears: Chronically Ill - Head Exam Head Exam: NORMAL INSPECTION - Respiratory Exam Respiratory Exam: Decreased Breath Sounds - Cardiovascular Exam Cardiovascular Exam: +S1, +S2 - GI/Abdominal Exam GI & Abdominal Exam: Soft. absent: Tenderness Assessment and Plan - Assessment and Plan (Free Text) Plan: Assessment S/P systemic inflammatory response syndrome, with no evidence of sepsis or infection, resolved S/P sepsis due to strep viridans and CoNS bacteremia from right gluteal and back cellulitis liver masses noted on ultrasound S/P multifocal HCAP on top of Influenza A infection S/P Sammie infection of sacral area as well peripheral vascular disease Plan continue to monitor clinically off antibiotics since he is at risk for healthcare-associated infections liver masses noted on ultrasound abdomen - plan as per medical team
--- NOTE | 2018-06-25 15:31 | PN ---
DATE: 06/25/2018 SUBJECTIVE: A 58-year-old diabetic male seen at bedside for continued evaluation and management of a slowly resolving right anterior ankle ulceration. The patient presents with his DEE stockings present and his dressing intact. He denies any fever, chills, nausea, vomiting, or shortness of breath. VITAL SIGNS: Temperature of 98.1, pulse rate of 83, blood pressure of 117/77, respiratory rate of 20. OBJECTIVE: Weakly palpable pedal pulses noted bilaterally. Capillary filling time is delayed x10. Temperature gradient is reversed bilaterally. There is noted to be no lower extremity edema. Gross protective sensation is decreased bilaterally. There is noted to be a resolving full-thickness ulceration on the anterior aspect of the right ankle that measures approximately 1.5 cm x 1 cm. Base remains granulated. There is no drainage, no purulence, no probing to tendon or bone. No underlying abscess formation seen. No clinical signs of infection noted. LABORATORY DATA: Laboratory findings reveal a white count of 9.4, hemoglobin of 8.7, hematocrit of 27.3, platelet count of 461. ASSESSMENT: Slowly resolving diabetic ankle ulceration. PLAN: The patient was seen and evaluated. Wound was cleansed with normal sterile saline. We will continue to apply small amount of Bactroban ointment and Optifoam daily. He is to continue using the DEE stockings bilaterally and they are to be removed at night before he goes to sleep. The patient will be seen and followed every other day. Raciel Davis DPM
[2018-06-26] MEDS: Pantoprazole 40 mg EC Tab PO SCH (05:28)
--- NOTE | 2018-06-26 07:41 | CP.PCM.PN ---
<Rocael Bowie - Last Filed: 06/26/18 17:02> Subjective - Date & Time of Evaluation Date of Evaluation: 06/26/18 Time of Evaluation: 07:37 - Subjective Subjective: Maurice Azeb PGY2 - IM progress Note for Hospitalist Service Patient seen and examined. No acute events overnight. Patient unchanged. Denies complaints or concerns. 12 point ROS benign Objective - Vital Signs/Intake and Output Vital Signs (last 24 hours): Temp Pulse Resp BP Pulse Ox 98.5 F 91 H 20 113/61 96 06/25/18 16:51 06/25/18 16:51 06/25/18 16:51 06/25/18 16:51 06/25/18 16:51 Intake and Output: 06/26/18 06/26/18 06:59 18:59 Intake Total 1070 Balance 1070 - Medications Medications: Current Medications Aspirin (Aspirin Chewable) 81 mg PO DAILY [facility] Last Admin: 06/25/18 10:35 Dose: 81 mg Citalopram Hydrobromide (Celexa) 10 mg PO DAILY [facility] Last Admin: 06/25/18 10:35 Dose: 10 mg Collagenase (Santyl) 0 gm TOP DAILY [facility] Last Admin: 06/24/18 10:09 Dose: Not Given Insulin Human Lispro (Humalog Low) 0 units [facility] PRN Reason: Protocol Last Admin: 06/25/18 21:47 Dose: Not Given Lisinopril (Zestril) 10 mg PO DAILY [facility] Last Admin: 06/25/18 10:36 Dose: 10 mg Pantoprazole Sodium (Protonix Ec Tab) 40 mg PO 0600 [facility] Last Admin: 06/26/18 05:28 Dose: 40 mg Thiamine HCl (Vitamin B1 Tab) 100 mg PO DAILY [facility] Last Admin: 06/25/18 10:36 Dose: 100 mg - Labs Labs: 06/21/18 06:00 06/21/18 06:00 PT 12.5 SECONDS (9.4-12.5) 12/09/17 10:00 INR 1.09 (0.93-1.08) H 12/09/17 10:00 APTT 28.3 Seconds (25.1-36.5) 11/30/17 05:30 - Constitutional Appears: No Acute Distress - Head Exam Head Exam: ATRAUMATIC, NORMAL INSPECTION, NORMOCEPHALIC - Eye Exam Eye Exam: EOMI, PERRL - ENT Exam ENT Exam: Mucous Membranes Moist - Respiratory Exam Respiratory Exam: Clear to Ausculation Bilateral, NORMAL BREATHING PATTERN - Cardiovascular Exam Cardiovascular Exam: REGULAR RHYTHM, +S1, +S2 - GI/Abdominal Exam GI & Abdominal Exam: Soft, Normal Bowel Sounds - Extremities Exam Extremities Exam: absent: Calf Tenderness, Pedal Edema - Neurological Exam Neurological Exam: Alert, Awake Additional comments: Patient motor and sensory grossly intact Patient able to move all four extremities past midline - Psychiatric Exam Psychiatric exam: Flat Affect - Skin Skin Exam: Dry, Intact Assessment and Plan - Assessment and Plan (Free Text) Assessment: 57 year old male unknown PMHx admitted on 11/29/17 for AMS, right hip cellulitis , multifocal pneumonia, influenza A, strep viridians bacteremia with findings of stroke on MRI - acute vs. 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 Patient was treated for bacteremia with IV abx for 6 weeks. Patient continues to be stable and monitored on general medical floor while awaiting [facility] and future placement. Plan: Anemia -Patient with a microcytic anemia -Iron level low -TIBC wnl -Retic count 1.30 -Started ferrous sulfate PO BID on 05/26 -Continue monitoring for constipation given new onset iron supplement Altered mental status - At baseline this morning -Cont. delirium precautions -PT -patient refusing to participate; however was able to get out of bed to chair last weekend -Cont ASA 81 QD / LIPITOR 20 QD Dorsal Right Foot Ulcer -Bandaged. Non purulent. Podiatry recommendations appreciated -Wound care following -On [facility] -No antibiotics warranted at this time per ID Coag negative Staphylococcus bacteremia - resolved -Last bld clx negative 12/04/17 with completion of 6 week course of antibiotics -Monitor WBC, ESR, CRP weekly -Echocardiogram unable to rule out vegetations, family is unavailable for consent for TAHIR Colonic mass - CT Abd/Pelvis showing colonic mass and hepatic lesions - GI consulted: follow recs - Flex sig/colonoscopy refused by patient - Family unable to be contacted for consent Diabetes mellitus type 2 - Cont ISS low -Cont Metformin 500mg BID -Cont accuchecks - Carb consistent diet HTN -BP Stable, continue to monitor -Cont Lisinopril 10 QD -Pressures are currently well controlled without Amlodipine 10 mg PO QD Leukocytosis - RESOLVED - WBC elevated 05/17- - Patient srinivasan cultured Blood cx negative x2 after 48H Urine cx w/ multiple species ML contaminated - Abd U/S - 7mm common bile duct dilatation and gallstones; Hepatic lesions measuring up to 4.9cm and 3.8 cm; compared to prev abd U/S from 12/05 lesions measured 4.1cm and 3.1cm - No RUQ tenderness appreciated on exam; - ID following, appreciate reccs Affective disorder - Cont Celexa 10mg PO Daily Constipation - Colace 100mg BID - Miralax 17gm BID Hx ETOH Abuse - Cont Thiamine - Cont Folic Acid - Cont Multivitamin DVT Prophylaxis: SCDs Patient remains to be at his medical and mental baseline at this time Pt seen, examined at bedside, and plan discussed with Dr. Schumacher, attending. <Deanna Schumacher - Last Filed: 06/26/18 17:48> Objective - Vital Signs/Intake and Output Vital Signs (last 24 hours): Temp Pulse Resp BP Pulse Ox 97.5 F L 67 20 113/73 97 06/26/18 08:34 06/26/18 10:53 06/26/18 08:34 06/26/18 10:53 06/26/18 08:34 Intake and Output: 06/26/18 06/26/18 06:59 18:59 Intake Total 1070 1310 Balance 1070 1310 - Medications Medications: Current Medications Aspirin (Aspirin Chewable) 81 mg PO DAILY [facility] Last Admin: 06/26/18 10:52 Dose: 81 mg Citalopram Hydrobromide (Celexa) 10 mg PO DAILY [facility] Last Admin: 06/26/18 10:53 Dose: 10 mg Collagenase (Santyl) 0 gm TOP DAILY [facility] Last Admin: 06/26/18 10:53 Dose: Not Given Insulin Human Lispro (Humalog Low) 0 units [facility] PRN Reason: Protocol Last Admin: 06/26/18 17:03 Dose: 1 units Lisinopril (Zestril) 10 mg PO DAILY [facility] Last Admin: 06/26/18 10:53 Dose: 10 mg Pantoprazole Sodium (Protonix Ec Tab) 40 mg PO 0600 [facility] Last Admin: 06/26/18 05:28 Dose: 40 mg Thiamine HCl (Vitamin B1 Tab) 100 mg PO DAILY [facility] Last Admin: 06/26/18 10:53 Dose: 100 mg - Labs Labs: 06/21/18 06:00 06/21/18 06:00 PT 12.5 SECONDS (9.4-12.5) 12/09/17 10:00 INR 1.09 (0.93-1.08) H 12/09/17 10:00 APTT 28.3 Seconds (25.1-36.5) 11/30/17 05:30 Attending/Attestation - Attestation I have personally seen and examined this patient.: Yes I have fully participated in the care of the patient.: Yes I have reviewed all pertinent clinical information, including history, physical exam and plan: Yes Notes (Text): 06/26/18 17:48 Medical record note made by the resident after discussion with my direction and input after the patient was personally seen and examined by me. I have reviewed the chart and agree that the record accurately reflects by personal performance of the history, physical exam, data review, and medical decision-making, in the course for the patient. I have also personally directed the plan of care. 57 yrs old male , S/P sepsis due to strep viridans and coagulase negative bacteremia from right gluteal and back cellulitis, S/P treatment for multifocal HCAP on top of Influenza A infection and S/P treatment for Sammie infection of sacral area as well.His mental status has not improved and he is at his base line. Patient had advance dementia and has poor insight about his medical condition.Psychiatry does not has capacity to make decision as per Psychiatry . Patient is awaiting guardianship paper work for placement. Prognosis is guarded.
[2018-06-26] MEDS: Insulin Lispro (humaLOG) LOW Coverage SC SCH ×4 (08:07→22:10)
[2018-06-26] MEDS: Collagenase 250 Units/gm Ointment(30 gm) TOP SCH (10:53)
--- NOTE | 2018-06-26 11:10 | CP.PCM.PN ---
Subjective - Date & Time of Evaluation Date of Evaluation: 06/26/18 Time of Evaluation: 10:35 - Subjective Subjective: Comfortable in bed, no fevers, not in distress. Objective - Vital Signs/Intake and Output Vital Signs (last 24 hours): Temp Pulse Resp BP Pulse Ox 98.1 F 83 20 117/77 97 06/25/18 07:55 06/25/18 10:36 06/25/18 07:55 06/25/18 10:36 06/25/18 07:55 Intake and Output: 06/25/18 06/25/18 06:59 18:59 Intake Total 240 Balance 240 - Medications Medications: Current Medications Aspirin (Aspirin Chewable) 81 mg PO DAILY [facility] Last Admin: 06/25/18 10:35 Dose: 81 mg Citalopram Hydrobromide (Celexa) 10 mg PO DAILY [facility] Last Admin: 06/25/18 10:35 Dose: 10 mg Collagenase (Santyl) 0 gm TOP DAILY [facility] Last Admin: 06/24/18 10:09 Dose: Not Given Insulin Human Lispro (Humalog Low) 0 units [facility] PRN Reason: Protocol Last Admin: 06/25/18 12:38 Dose: Not Given Lisinopril (Zestril) 10 mg PO DAILY [facility] Last Admin: 06/25/18 10:36 Dose: 10 mg Pantoprazole Sodium (Protonix Ec Tab) 40 mg PO 0600 [facility] Last Admin: 06/25/18 05:55 Dose: 40 mg Thiamine HCl (Vitamin B1 Tab) 100 mg PO DAILY [facility] Last Admin: 06/25/18 10:36 Dose: 100 mg - Labs Labs: 06/21/18 06:00 06/21/18 06:00 PT 12.5 SECONDS (9.4-12.5) 12/09/17 10:00 INR 1.09 (0.93-1.08) H 12/09/17 10:00 APTT 28.3 Seconds (25.1-36.5) 11/30/17 05:30 - Constitutional Appears: No Acute Distress, Chronically Ill - Head Exam Head Exam: NORMAL INSPECTION - Neck Exam Neck Exam: absent: Meningismus - Respiratory Exam Respiratory Exam: Decreased Breath Sounds - Cardiovascular Exam Cardiovascular Exam: +S1, +S2 - GI/Abdominal Exam GI & Abdominal Exam: Soft. absent: Tenderness Assessment and Plan - Assessment and Plan (Free Text) Plan: Assessment S/P systemic inflammatory response syndrome, with no evidence of sepsis or infection, resolved S/P sepsis due to strep viridans and CoNS bacteremia from right gluteal and back cellulitis liver masses noted on ultrasound S/P multifocal HCAP on top of Influenza A infection S/P Sammie infection of sacral area as well peripheral vascular disease Plan continue to monitor clinically off antibiotics since he is at risk for nosocomial infections liver masses noted on ultrasound abdomen - plan as per medical team
[2018-06-27] MEDS: Pantoprazole 40 mg EC Tab PO SCH (05:34)
[2018-06-27] MEDS: Insulin Lispro (humaLOG) LOW Coverage SC SCH ×4 (08:27→21:36)
[2018-06-27] MEDS: Collagenase 250 Units/gm Ointment(30 gm) TOP SCH (09:00)
--- NOTE | 2018-06-27 12:13 | CP.PCM.PN ---
<Dave Gutierrez - Last Filed: 06/27/18 15:56> Subjective - Date & Time of Evaluation Date of Evaluation: 06/27/18 Time of Evaluation: 06:12 - Subjective Subjective: Dave Gutierrez DO PGY-1, Internal Medicine Resident. Hospitalist Progress Note Patient seen and examined at bedside. Patient is resting in bed. No acute events overnight. Patient denied SOB, CP, palpitations, headache, fever. ROS is otherwise negative Objective - Vital Signs/Intake and Output Vital Signs (last 24 hours): Temp Pulse Resp BP Pulse Ox 97.9 F 79 18 108/68 96 06/27/18 08:07 06/27/18 09:01 06/27/18 08:07 06/27/18 09:01 06/27/18 08:07 Intake and Output: 06/27/18 06/27/18 06:59 18:59 Intake Total 240 Balance 240 - Medications Medications: Current Medications Aspirin (Aspirin Chewable) 81 mg PO DAILY [facility] Last Admin: 06/27/18 08:59 Dose: 81 mg Citalopram Hydrobromide (Celexa) 10 mg PO DAILY [facility] Last Admin: 06/27/18 08:59 Dose: 10 mg Collagenase (Santyl) 0 gm TOP DAILY [facility] Last Admin: 06/27/18 09:00 Dose: Not Given Insulin Human Lispro (Humalog Low) 0 units [facility] PRN Reason: Protocol Last Admin: 06/27/18 11:13 Dose: Not Given Lisinopril (Zestril) 10 mg PO DAILY [facility] Last Admin: 06/27/18 09:01 Dose: 10 mg Pantoprazole Sodium (Protonix Ec Tab) 40 mg PO 0600 [facility] Last Admin: 06/27/18 05:34 Dose: 40 mg Thiamine HCl (Vitamin B1 Tab) 100 mg PO DAILY [facility] Last Admin: 06/27/18 09:01 Dose: 100 mg - Labs Labs: 06/21/18 06:00 06/21/18 06:00 PT 12.5 SECONDS (9.4-12.5) 12/09/17 10:00 INR 1.09 (0.93-1.08) H 12/09/17 10:00 APTT 28.3 Seconds (25.1-36.5) 11/30/17 05:30 - Additional Findings Additional findings: - Constitutional Appears: Non-toxic, No Acute Distress - Head Exam Head Exam: ATRAUMATIC, NORMAL INSPECTION - Eye Exam Eye Exam: EOMI, Normal appearance, PERRL - ENT Exam ENT Exam: Mucous Membranes Moist - Respiratory Exam Respiratory Exam: Clear to Ausculation Bilateral, NORMAL BREATHING PATTERN - Cardiovascular Exam Cardiovascular Exam: REGULAR RHYTHM, +S1, +S2 - GI/Abdominal Exam GI & Abdominal Exam: Soft, Normal Bowel Sounds. absent: Distended, Guarding, Tenderness, Organomegaly, Rebound - Extremities Exam Extremities Exam: Full ROM, Normal Capillary Refill, Normal Inspection - Neurological Exam Neurological Exam: Alert, Awake, CN II-XII Intact Additional comments: Oriented x2 - Skin Skin Exam: Dry, Intact, Warm Assessment and Plan - Assessment and Plan (Free Text) Assessment: 57 y/o male with unknown PMHx admitted on 11/29/17 for AMS, right hip cellulitis , multifocal pneumonia, influenza A, strep viridians bacteremia with findings of stroke on MRI - acute vs. 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 Patient was treated for bacteremia with IV abx.Patient is stable and awaiting state gaurdianship and future placement. Plan: Anemia -microcytic anemia -low Iron, TIBC wnl -Retic count 1.30 -continue iron supplement -continue Colace, Miralax for constipation Colonic mass - CT A/P showing colonic mass and hepatic lesions - patient refused colonscopy - Patient is altered. no family present for consent Hepatic lesions -Using abd U/S: measuring up to 4.9cm and 3.8 cm. compared to 4.1cm and 3.1cm in . stable size -patient asymptomatic Altered mental status - Patient is at baseline -Cont ASA, lipitor Dorsal Right Foot Ulcer -clean wound. no signs of infection. no treatment required -continue wound care HTN -BP Stable, continue to monitor -Cont Lisinopril, Amlodipine Diabetes mellitus type 2 - Cont ISS low. accuchecks -Cont Metformin Affective disorder - Cont Celexa Hx ETOH Abuse - Cont Thiamine, Multivitamin, Folic Acid Prophylaxis: -SCDs for DVT -continue delirium precautions Case reviewed and plan discussed with Dr. Galo <Sixto Galo - Last Filed: 06/27/18 17:13> Objective - Vital Signs/Intake and Output Vital Signs (last 24 hours): Temp Pulse Resp BP Pulse Ox 97.6 F 98 H 18 109/70 98 06/27/18 16:55 06/27/18 16:55 06/27/18 16:55 06/27/18 16:55 06/27/18 16:55 Intake and Output: 06/27/18 06/27/18 06:59 18:59 Intake Total 240 Balance 240 - Medications Medications: Current Medications Aspirin (Aspirin Chewable) 81 mg PO DAILY [facility] Last Admin: 06/27/18 08:59 Dose: 81 mg Citalopram Hydrobromide (Celexa) 10 mg PO DAILY [facility] Last Admin: 06/27/18 08:59 Dose: 10 mg Collagenase (Santyl) 0 gm TOP DAILY [facility] Last Admin: 06/27/18 09:00 Dose: Not Given Insulin Human Lispro (Humalog Low) 0 units [facility] PRN Reason: Protocol Last Admin: 06/27/18 11:13 Dose: Not Given Lisinopril (Zestril) 10 mg PO DAILY [facility] Last Admin: 06/27/18 09:01 Dose: 10 mg Pantoprazole Sodium (Protonix Ec Tab) 40 mg PO 0600 [facility] Last Admin: 06/27/18 05:34 Dose: 40 mg Thiamine HCl (Vitamin B1 Tab) 100 mg PO DAILY [facility] Last Admin: 06/27/18 09:01 Dose: 100 mg - Labs Labs: 06/21/18 06:00 06/21/18 06:00 PT 12.5 SECONDS (9.4-12.5) 12/09/17 10:00 INR 1.09 (0.93-1.08) H 12/09/17 10:00 APTT 28.3 Seconds (25.1-36.5) 11/30/17 05:30 Attending/Attestation - Attestation I have personally seen and examined this patient.: Yes I have fully participated in the care of the patient.: Yes I have reviewed all pertinent clinical information, including history, physical exam and plan: Yes Notes (Text): 06/27/18 17:12 57 year old male who was admitted with altered mental status. He was found to have bacteremia, cellulitis and pneumonia for which he has completed antibiotics. He also had CVA. He is on aspirin and statin. Mental status is currently at baseline. Podiatry is following for foot ulceration. He is pending placement/guardianship. Court date is 06/30/18. Sixto Galo MD Hospitalist.
--- NOTE | 2018-06-27 19:20 | CP.PCM.PN ---
Subjective - Date & Time of Evaluation Date of Evaluation: 06/27/18 Time of Evaluation: 10:20 - Subjective Subjective: No fevers, not in distress. Objective - Vital Signs/Intake and Output Vital Signs (last 24 hours): Temp Pulse Resp BP Pulse Ox 97.5 F L 67 20 113/73 97 06/26/18 08:34 06/26/18 10:53 06/26/18 08:34 06/26/18 10:53 06/26/18 08:34 Intake and Output: 06/26/18 06/26/18 06:59 18:59 Intake Total 1070 1310 Balance 1070 1310 - Medications Medications: Current Medications Aspirin (Aspirin Chewable) 81 mg PO DAILY [facility] Last Admin: 06/26/18 10:52 Dose: 81 mg Citalopram Hydrobromide (Celexa) 10 mg PO DAILY [facility] Last Admin: 06/26/18 10:53 Dose: 10 mg Collagenase (Santyl) 0 gm TOP DAILY [facility] Last Admin: 06/26/18 10:53 Dose: Not Given Insulin Human Lispro (Humalog Low) 0 units [facility] PRN Reason: Protocol Last Admin: 06/26/18 08:07 Dose: Not Given Lisinopril (Zestril) 10 mg PO DAILY [facility] Last Admin: 06/26/18 10:53 Dose: 10 mg Pantoprazole Sodium (Protonix Ec Tab) 40 mg PO 0600 [facility] Last Admin: 06/26/18 05:28 Dose: 40 mg Thiamine HCl (Vitamin B1 Tab) 100 mg PO DAILY [facility] Last Admin: 06/26/18 10:53 Dose: 100 mg - Labs Labs: 06/21/18 06:00 06/21/18 06:00 PT 12.5 SECONDS (9.4-12.5) 12/09/17 10:00 INR 1.09 (0.93-1.08) H 12/09/17 10:00 APTT 28.3 Seconds (25.1-36.5) 11/30/17 05:30 - Constitutional Appears: Chronically Ill - Head Exam Head Exam: NORMAL INSPECTION - Neck Exam Neck Exam: absent: Meningismus - Respiratory Exam Respiratory Exam: Decreased Breath Sounds - Cardiovascular Exam Cardiovascular Exam: +S1, +S2 - GI/Abdominal Exam GI & Abdominal Exam: Soft. absent: Tenderness Assessment and Plan - Assessment and Plan (Free Text) Plan: Assessment S/P systemic inflammatory response syndrome, with no evidence of sepsis or infection, resolved S/P sepsis due to strep viridans and CoNS bacteremia from right gluteal and back cellulitis liver masses noted on ultrasound S/P multifocal HCAP on top of Influenza A infection S/P Sammie infection of sacral area as well peripheral vascular disease Plan continue to monitor clinically off antibiotics since he is at risk for hospital- acquired infections liver masses noted on ultrasound abdomen - plan as per medical team
[2018-06-28] MEDS: Pantoprazole 40 mg EC Tab PO SCH (05:35)
[2018-06-28] MEDS: Insulin Lispro (humaLOG) LOW Coverage SC SCH ×4 (08:04→21:48)
[2018-06-28] MEDS: Collagenase 250 Units/gm Ointment(30 gm) TOP SCH (14:51)
--- NOTE | 2018-06-28 19:20 | CP.PCM.PN ---
<Dave Gutierrez - Last Filed: 06/28/18 19:17> Subjective - Date & Time of Evaluation Date of Evaluation: 06/28/18 Time of Evaluation: 06:40 - Subjective Subjective: Dave Gutierrez DO PGY-1, Internal Medicine Resident. Hospitalist Progress Note Patient seen and examined at bedside. Patient is resting in bed. No acute events overnight. Patient denied SOB, CP, palpitations, headache, fever. ROS is otherwise negative Objective - Vital Signs/Intake and Output Vital Signs (last 24 hours): Temp Pulse Resp BP Pulse Ox 98.4 F 94 H 20 108/60 100 06/28/18 17:57 06/28/18 17:57 06/28/18 17:57 06/28/18 17:57 06/28/18 17:57 Intake and Output: 06/28/18 06/29/18 18:59 06:59 Intake Total 1540 Balance 1540 - Medications Medications: Current Medications Aspirin (Aspirin Chewable) 81 mg PO DAILY [facility] Last Admin: 06/28/18 09:03 Dose: 81 mg Citalopram Hydrobromide (Celexa) 10 mg PO DAILY [facility] Last Admin: 06/28/18 09:03 Dose: 10 mg Collagenase (Santyl) 0 gm TOP DAILY [facility] Last Admin: 06/28/18 14:51 Dose: Not Given Insulin Human Lispro (Humalog Low) 0 units SC [facility] PRN Reason: Protocol Last Admin: 06/28/18 17:04 Dose: 1 units Lisinopril (Zestril) 10 mg PO DAILY [facility] Last Admin: 06/28/18 09:04 Dose: 10 mg Metformin HCl (Glucophage) 500 mg PO BID [facility] Last Admin: 06/28/18 17:04 Dose: 500 mg Pantoprazole Sodium (Protonix Ec Tab) 40 mg PO 0600 [facility] Last Admin: 06/28/18 05:35 Dose: 40 mg Thiamine HCl (Vitamin B1 Tab) 100 mg PO DAILY [facility] Last Admin: 06/28/18 09:04 Dose: 100 mg - Labs Labs: 06/21/18 06:00 06/21/18 06:00 PT 12.5 SECONDS (9.4-12.5) 12/09/17 10:00 INR 1.09 (0.93-1.08) H 12/09/17 10:00 APTT 28.3 Seconds (25.1-36.5) 11/30/17 05:30 - Additional Findings Additional findings: - Constitutional Appears: Non-toxic, No Acute Distress - Head Exam Head Exam: ATRAUMATIC, NORMAL INSPECTION - Eye Exam Eye Exam: EOMI, Normal appearance, PERRL - ENT Exam ENT Exam: Mucous Membranes Moist - Respiratory Exam Respiratory Exam: Clear to Ausculation Bilateral, NORMAL BREATHING PATTERN - Cardiovascular Exam Cardiovascular Exam: REGULAR RHYTHM, +S1, +S2 - GI/Abdominal Exam GI & Abdominal Exam: Soft, Normal Bowel Sounds. absent: Distended, Guarding, Tenderness, Organomegaly, Rebound - Extremities Exam Extremities Exam: Full ROM, Normal Capillary Refill, Normal Inspection - Neurological Exam Neurological Exam: Alert, Awake, CN II-XII Intact Additional comments: Oriented x2 Assessment and Plan - Assessment and Plan (Free Text) Assessment: 57 y/o male with unknown PMHx admitted on 11/29/17 for AMS, right hip cellulitis , multifocal pneumonia, influenza A, strep viridians bacteremia with findings of stroke on MRI - acute vs. 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 Patient was treated for bacteremia with IV abx.Patient is stable and awaiting state gaurdianship and future placement. Plan: Anemia -microcytic anemia -low Iron, TIBC wnl -continue iron supplement -continue Colace, Miralax for constipation HTN -BP Stable, continue to monitor -Continue Lisinopril, Amlodipine Colonic mass - CT A/P showing colonic mass and hepatic lesions - Patient is altered. no family present for consent - patient refused colonscopy Affective disorder - Cont Celexa Hepatic lesions -Using abd U/S: measuring up to 4.9cm and 3.8 cm. compared to 4.1cm and 3.1cm in . stable size -patient asymptomatic Altered mental status - Patient is at baseline -Cont ASA, lipitor Dorsal Right Foot Ulcer -clean wound. no signs of infection. no treatment required -continue wound care Diabetes mellitus type 2 - Cont ISS low. accuchecks -Cont Metformin Hx ETOH Abuse - Cont Thiamine, Multivitamin, Folic Acid Prophylaxis: -SCDs for DVT -continue delirium precautions Case reviewed and plan discussed with Dr. Galo <Sixto Galo - Last Filed: 09/12/18 07:19> Objective - Vital Signs/Intake and Output Vital Signs (last 24 hours): Temp Pulse Resp BP Pulse Ox 98.4 F 94 H 20 108/60 100 06/28/18 17:57 06/28/18 17:57 06/28/18 17:57 06/28/18 17:57 06/28/18 17:57 Intake and Output: 06/29/18 06/29/18 06:59 18:59 Intake Total 240 Balance 240 - Medications Medications: Current Medications Aspirin (Aspirin Chewable) 81 mg PO DAILY [facility] Last Admin: 06/28/18 09:03 Dose: 81 mg Citalopram Hydrobromide (Celexa) 10 mg PO DAILY [facility] Last Admin: 06/28/18 09:03 Dose: 10 mg Collagenase (Santyl) 0 gm TOP DAILY [facility] Last Admin: 06/28/18 14:51 Dose: Not Given Insulin Human Lispro (Humalog Low) 0 units SC [facility] PRN Reason: Protocol Last Admin: 06/28/18 21:48 Dose: Not Given Lisinopril (Zestril) 10 mg PO DAILY [facility] Last Admin: 06/28/18 09:04 Dose: 10 mg Metformin HCl (Glucophage) 500 mg PO BID [facility] Last Admin: 06/28/18 17:04 Dose: 500 mg Pantoprazole Sodium (Protonix Ec Tab) 40 mg PO 0600 [facility] Last Admin: 06/29/18 05:02 Dose: 40 mg Thiamine HCl (Vitamin B1 Tab) 100 mg PO DAILY [facility] Last Admin: 06/28/18 09:04 Dose: 100 mg - Labs Labs: 06/21/18 06:00 06/21/18 06:00 PT 12.5 SECONDS (9.4-12.5) 12/09/17 10:00 INR 1.09 (0.93-1.08) H 12/09/17 10:00 APTT 28.3 Seconds (25.1-36.5) 11/30/17 05:30 Attending/Attestation - Attestation I have personally seen and examined this patient.: Yes I have fully participated in the care of the patient.: Yes I have reviewed all pertinent clinical information, including history, physical exam and plan: Yes Notes (Text): 06/28/18 57 year old male who was admitted with altered mental status. He was found to have bacteremia, cellulitis and pneumonia for which he has completed antibiotics. He also had CVA. He is on aspirin and statin. Mental status is currently at baseline. He has no new complaints this morning. Podiatry is following for foot ulceration. He is pending placement/guardianship. Court date is this week. Sixto Galo MD Hospitalist.
--- NOTE | 2018-06-28 20:54 | PN ---
DATE: 06/28/2018 SUBJECTIVE: The patient is in bed in no acute distress. PHYSICAL EXAMINATION: VITAL SIGNS: Temperature is 98, blood pressure is 114/70, respiratory rate of 18. HEENT: Unremarkable. LABORATORY EXAMINATION: Reveals a white count of 9.4 and chemistries are noted. ASSESSMENT AND PLAN: A 58-year-old with systemic inflammatory response syndrome, no evidence of sepsis or infection, resolved and currently off of antibiotics and had sepsis due to Streptococcus viridans, coagulase-negative Staphylococcus bacteremia, right gluteal and back cellulitis, liver masses on ultrasound, multifocal healthcare-associated pneumonia and influenza A. The patient is at risk for developing nosocomial infections. Daniel Torres MD
[2018-06-29] MEDS: Pantoprazole 40 mg EC Tab PO SCH (05:02)
--- NOTE | 2018-06-29 07:52 | CP.PCM.PN ---
<Dave Gutierrez - Last Filed: 06/29/18 18:14> Subjective - Date & Time of Evaluation Date of Evaluation: 06/29/18 Time of Evaluation: 07:20 - Subjective Subjective: Dave Gutierrez DO PGY-1, Internal Medicine Resident. Hospitalist Progress Note Patient seen and examined at bedside. Patient is resting in bed. No acute events overnight. Tolerating his diet with regular bowel movements. Patient denied SOB, CP, palpitations, headache, fever. ROS is otherwise negative Objective - Vital Signs/Intake and Output Vital Signs (last 24 hours): Temp Pulse Resp BP Pulse Ox 98.9 F 86 18 105/69 96 06/29/18 06:00 06/29/18 06:00 06/29/18 06:00 06/29/18 06:00 06/29/18 06:00 Intake and Output: 06/29/18 06/29/18 06:59 18:59 Intake Total 240 Balance 240 - Medications Medications: Current Medications Aspirin (Aspirin Chewable) 81 mg PO DAILY [facility] Last Admin: 06/28/18 09:03 Dose: 81 mg Citalopram Hydrobromide (Celexa) 10 mg PO DAILY [facility] Last Admin: 06/28/18 09:03 Dose: 10 mg Collagenase (Santyl) 0 gm TOP DAILY [facility] Last Admin: 06/28/18 14:51 Dose: Not Given Insulin Human Lispro (Humalog Low) [address] [facility] PRN Reason: Protocol Last Admin: 06/28/18 21:48 Dose: Not Given Lisinopril (Zestril) 10 mg PO DAILY [facility] Last Admin: 06/28/18 09:04 Dose: 10 mg Metformin HCl (Glucophage) 500 mg PO BID [facility] Last Admin: 06/28/18 17:04 Dose: 500 mg Pantoprazole Sodium (Protonix Ec Tab) 40 mg PO 0600 [facility] Last Admin: 06/29/18 05:02 Dose: 40 mg Thiamine HCl (Vitamin B1 Tab) 100 mg PO DAILY [facility] Last Admin: 06/28/18 09:04 Dose: 100 mg - Labs Labs: 06/21/18 06:00 06/21/18 06:00 PT 12.5 SECONDS (9.4-12.5) 12/09/17 10:00 INR 1.09 (0.93-1.08) H 12/09/17 10:00 APTT 28.3 Seconds (25.1-36.5) 11/30/17 05:30 - Additional Findings Additional findings: - Constitutional Appears: Non-toxic, No Acute Distress - Head Exam Head Exam: ATRAUMATIC, NORMAL INSPECTION - Eye Exam Eye Exam: EOMI, Normal appearance, PERRL - ENT Exam ENT Exam: Mucous Membranes Moist - Respiratory Exam Respiratory Exam: Clear to Ausculation Bilateral, NORMAL BREATHING PATTERN - Cardiovascular Exam Cardiovascular Exam: REGULAR RHYTHM, +S1, +S2 - GI/Abdominal Exam GI & Abdominal Exam: Soft, Normal Bowel Sounds. absent: Distended, Guarding, Tenderness, Organomegaly, Rebound - Extremities Exam Extremities Exam: Full ROM, Normal Capillary Refill, Normal Inspection - Neurological Exam Neurological Exam: Alert, Awake, CN II-XII Intact Additional comments: Oriented x2 Assessment and Plan - Assessment and Plan (Free Text) Assessment: 57 y/o male with unknown PMHx admitted on 11/29/17 for AMS, right hip cellulitis , multifocal pneumonia, influenza A, strep viridians bacteremia with findings of stroke on MRI - acute vs. 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 Patient was treated for bacteremia with IV abx. Patient is stable and awaiting state gaurdianship and future placement. is tomorrow Plan: HTN -BP Stable, continue to monitor -Continue Lisinopril, Amlodipine Colonic mass - CT A/P showing colonic mass and hepatic lesions - Patient is altered. no family present for consent - patient refused colonscopy Affective disorder - Cont Celexa Hepatic lesions -Using abd U/S: measuring up to 4.9cm and 3.8 cm. compared to 4.1cm and 3.1cm in . stable size -patient asymptomatic Anemia -microcytic anemia -low Iron, TIBC wnl -continue iron supplement -continue Colace, Miralax for constipation Altered mental status - Patient is at baseline -Cont ASA, lipitor Dorsal Right Foot Ulcer -clean wound. no signs of infection. no treatment required -continue wound care Diabetes mellitus type 2 - Cont ISS low. accuchecks -Cont Metformin Hx ETOH Abuse - Cont Thiamine, Multivitamin, Folic Acid Prophylaxis: -SCDs for DVT -continue delirium precautions Case reviewed and plan discussed with Dr. Galo <Sixto Galo - Last Filed: 06/29/18 19:12> Objective - Vital Signs/Intake and Output Vital Signs (last 24 hours): Temp Pulse Resp BP Pulse Ox 98.4 F 88 20 114/70 97 06/29/18 15:56 06/29/18 15:56 06/29/18 15:56 06/29/18 15:56 06/29/18 15:56 - Medications Medications: Current Medications Aspirin (Aspirin Chewable) 81 mg PO DAILY [facility] Last Admin: 06/29/18 09:58 Dose: 81 mg Citalopram Hydrobromide (Celexa) 10 mg PO DAILY [facility] Last Admin: 06/29/18 09:58 Dose: 10 mg Collagenase (Santyl) 0 gm TOP DAILY [facility] Last Admin: 06/29/18 10:05 Dose: Not Given Insulin Human Lispro (Humalog Low) [address] [facility] PRN Reason: Protocol Last Admin: 06/29/18 17:41 Dose: 1 units Lisinopril (Zestril) 10 mg PO DAILY [facility] Last Admin: 06/29/18 09:58 Dose: 10 mg Metformin HCl (Glucophage) 500 mg PO BID [facility] Last Admin: 06/29/18 09:58 Dose: 500 mg Pantoprazole Sodium (Protonix Ec Tab) 40 mg PO 0600 [facility] Last Admin: 06/29/18 05:02 Dose: 40 mg Thiamine HCl (Vitamin B1 Tab) 100 mg PO DAILY [facility] Last Admin: 06/29/18 09:58 Dose: 100 mg - Labs Labs: 06/21/18 06:00 06/21/18 06:00 PT 12.5 SECONDS (9.4-12.5) 12/09/17 10:00 INR 1.09 (0.93-1.08) H 12/09/17 10:00 APTT 28.3 Seconds (25.1-36.5) 11/30/17 05:30 Attending/Attestation - Attestation I have personally seen and examined this patient.: Yes I have fully participated in the care of the patient.: Yes I have reviewed all pertinent clinical information, including history, physical exam and plan: Yes Notes (Text): 06/29/18 19:12 57 year old male who was admitted with altered mental status. He was found to have bacteremia, cellulitis and pneumonia for which he has completed antibiotics. He also had CVA. He is on aspirin and statin. Mental status is currently at baseline. Podiatry is following for foot ulceration. He is pending placement/guardianship. Court date is tomorrow as per SUSAN. Sixto Galo MD Hospitalist.
[2018-06-29] MEDS: Insulin Lispro (humaLOG) LOW Coverage SC SCH ×4 (08:36→22:10)
[2018-06-29] MEDS: Collagenase 250 Units/gm Ointment(30 gm) TOP SCH (10:05)
--- NOTE | 2018-06-29 19:42 | CP.PCM.PN ---
Subjective - Date & Time of Evaluation Date of Evaluation: 06/29/18 Time of Evaluation: 10:40 - Subjective Subjective: No fevers, not in distress, no diarrhea. Objective - Vital Signs/Intake and Output Vital Signs (last 24 hours): Temp Pulse Resp BP Pulse Ox 98.4 F 88 20 114/70 97 06/29/18 15:56 06/29/18 15:56 06/29/18 15:56 06/29/18 15:56 06/29/18 15:56 - Medications Medications: Current Medications Aspirin (Aspirin Chewable) 81 mg PO DAILY [facility] Last Admin: 06/29/18 09:58 Dose: 81 mg Citalopram Hydrobromide (Celexa) 10 mg PO DAILY [facility] Last Admin: 06/29/18 09:58 Dose: 10 mg Collagenase (Santyl) 0 gm TOP DAILY [facility] Last Admin: 06/29/18 10:05 Dose: Not Given Insulin Human Lispro (Humalog Low) 0 units SC [facility] PRN Reason: Protocol Last Admin: 06/29/18 17:41 Dose: 1 units Lisinopril (Zestril) 10 mg PO DAILY [facility] Last Admin: 06/29/18 09:58 Dose: 10 mg Metformin HCl (Glucophage) 500 mg PO BID [facility] Last Admin: 06/29/18 09:58 Dose: 500 mg Pantoprazole Sodium (Protonix Ec Tab) 40 mg PO 0600 [facility] Last Admin: 06/29/18 05:02 Dose: 40 mg Thiamine HCl (Vitamin B1 Tab) 100 mg PO DAILY [facility] Last Admin: 06/29/18 09:58 Dose: 100 mg - Labs Labs: 06/21/18 06:00 06/21/18 06:00 PT 12.5 SECONDS (9.4-12.5) 12/09/17 10:00 INR 1.09 (0.93-1.08) H 12/09/17 10:00 APTT 28.3 Seconds (25.1-36.5) 11/30/17 05:30 - Constitutional Appears: Chronically Ill - Head Exam Head Exam: NORMAL INSPECTION - Respiratory Exam Respiratory Exam: Decreased Breath Sounds - Cardiovascular Exam Cardiovascular Exam: +S1, +S2 - GI/Abdominal Exam GI & Abdominal Exam: Soft. absent: Tenderness Assessment and Plan - Assessment and Plan (Free Text) Plan: Assessment S/P systemic inflammatory response syndrome, with no evidence of sepsis or infection, resolved S/P sepsis due to strep viridans and CoNS bacteremia from right gluteal and back cellulitis liver masses noted on ultrasound S/P multifocal HCAP on top of Influenza A infection S/P Sammie infection of sacral area as well peripheral vascular disease Plan continue to monitor clinically off antibiotics since he is at risk for healthcare-associated infections liver masses noted on ultrasound abdomen - plan as per medical team
[2018-06-30] MEDS: Pantoprazole 40 mg EC Tab PO SCH (05:59)
--- NOTE | 2018-06-30 08:10 | CP.PCM.PN ---
<Dave Gutierrez - Last Filed: 06/30/18 20:55> Subjective - Date & Time of Evaluation Date of Evaluation: 06/30/18 Time of Evaluation: 06:02 - Subjective Subjective: Dave Gutierrez DO PGY-1, Internal Medicine Resident. Hospitalist Progress Note Patient seen and examined at bedside. Patient is resting in bed. No acute events overnight. Tolerating his diet with regular bowel movements. Patient denied SOB, CP, palpitations, headache, fever. ROS is otherwise negative Objective - Vital Signs/Intake and Output Vital Signs (last 24 hours): Temp Pulse Resp BP Pulse Ox 98.4 F 88 20 114/70 97 06/29/18 15:56 06/29/18 15:56 06/29/18 15:56 06/29/18 15:56 06/29/18 15:56 Intake and Output: 06/30/18 06/30/18 06:59 18:59 Intake Total 240 Balance 240 - Medications Medications: Current Medications Aspirin (Aspirin Chewable) 81 mg PO DAILY [facility] Last Admin: 06/29/18 09:58 Dose: 81 mg Citalopram Hydrobromide (Celexa) 10 mg PO DAILY [facility] Last Admin: 06/29/18 09:58 Dose: 10 mg Collagenase (Santyl) 0 gm TOP DAILY [facility] Last Admin: 06/29/18 10:05 Dose: Not Given Insulin Human Lispro (Humalog Low) 0 units SC [facility] PRN Reason: Protocol Last Admin: 06/29/18 22:10 Dose: Not Given Lisinopril (Zestril) 10 mg PO DAILY [facility] Last Admin: 06/29/18 09:58 Dose: 10 mg Metformin HCl (Glucophage) 500 mg PO BID [facility] Last Admin: 06/29/18 09:58 Dose: 500 mg Pantoprazole Sodium (Protonix Ec Tab) 40 mg PO 0600 [facility] Last Admin: 06/30/18 05:59 Dose: 40 mg Thiamine HCl (Vitamin B1 Tab) 100 mg PO DAILY [facility] Last Admin: 06/29/18 09:58 Dose: 100 mg - Labs Labs: 06/21/18 06:00 06/21/18 06:00 PT 12.5 SECONDS (9.4-12.5) 12/09/17 10:00 INR 1.09 (0.93-1.08) H 12/09/17 10:00 APTT 28.3 Seconds (25.1-36.5) 11/30/17 05:30 - Additional Findings Additional findings: - Constitutional Appears: Non-toxic, No Acute Distress - Head Exam Head Exam: ATRAUMATIC, NORMAL INSPECTION - Eye Exam Eye Exam: EOMI, Normal appearance, PERRL - ENT Exam ENT Exam: Mucous Membranes Moist - Respiratory Exam Respiratory Exam: Clear to Ausculation Bilateral, NORMAL BREATHING PATTERN - Cardiovascular Exam Cardiovascular Exam: REGULAR RHYTHM, +S1, +S2 - GI/Abdominal Exam GI & Abdominal Exam: Soft, Normal Bowel Sounds. absent: Distended, Guarding, Tenderness, Organomegaly, Rebound - Extremities Exam Extremities Exam: Full ROM, Normal Capillary Refill, Normal Inspection - Neurological Exam Neurological Exam: Alert, Awake, CN II-XII Intact Additional comments: Oriented x2 Assessment and Plan - Assessment and Plan (Free Text) Assessment: 57 y/o male with unknown PMHx admitted on 11/29/17 for AMS, right hip cellulitis , multifocal pneumonia, influenza A, strep viridians bacteremia with findings of stroke on MRI - acute vs. 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 Patient was treated for bacteremia with IV abx. Patient is stable and awaiting state gaurdianship and future placement. Plan: HTN -BP Stable, continue to monitor -Continue Lisinopril, Amlodipine Colonic mass - CT A/P showing colonic mass and hepatic lesions - Patient is altered. no family present for consent - patient refused colonscopy Affective disorder - Cont Celexa Hepatic lesions -Using abd U/S: measuring up to 4.9cm and 3.8 cm. compared to 4.1cm and 3.1cm in . stable size -patient asymptomatic Anemia -microcytic anemia -low Iron, TIBC wnl -continue iron supplement -continue Colace, Miralax for constipation Altered mental status - Patient is at baseline -Cont ASA, lipitor Dorsal Right Foot Ulcer -clean wound. no signs of infection. no treatment required -continue wound care Diabetes mellitus type 2 - Cont ISS low. accuchecks -Cont Metformin Hx ETOH Abuse - Continue Thiamine, Multivitamin, Folic Acid Prophylaxis: -SCDs for DVT -continue delirium precautions As per social media marketing specialist note: spoke with clinical trials systems administrator who advised that court is in agreement with guardianship. Opal Polo was appointed guardian, patient access was requested to change information in chart. [employer] also advised that the court is going to give an order to patient's bank to release five years of bank statements to funmiabe polo. PA 4 and 5 placed in chart to be completed. will request a PAS for state. Case reviewed and plan discussed with Dr. Galo <Sixto Galo - Last Filed: 07/01/18 06:53> Objective - Vital Signs/Intake and Output Vital Signs (last 24 hours): Temp Pulse Resp BP Pulse Ox 99 F 88 20 98/51 L 96 06/30/18 17:16 06/30/18 17:16 06/30/18 17:16 06/30/18 17:16 06/30/18 17:16 Intake and Output: 06/30/18 07/01/18 18:59 06:59 Intake Total 1260 Balance 1260 - Medications Medications: Current Medications Aspirin (Aspirin Chewable) 81 mg PO DAILY [facility] Last Admin: 06/30/18 10:04 Dose: 81 mg Citalopram Hydrobromide (Celexa) 10 mg PO DAILY [facility] Last Admin: 06/30/18 10:04 Dose: 10 mg Collagenase (Santyl) 0 gm TOP DAILY [facility] Last Admin: 06/30/18 10:05 Dose: 1 applic Insulin Human Lispro (Humalog Low) 0 units [facility] PRN Reason: Protocol Last Admin: 06/30/18 21:22 Dose: Not Given Lisinopril (Zestril) 10 mg PO DAILY [facility] Last Admin: 06/30/18 10:04 Dose: Not Given Metformin HCl (Glucophage) 500 mg PO BID [facility] Last Admin: 06/30/18 17:17 Dose: 500 mg Pantoprazole Sodium (Protonix Ec Tab) 40 mg PO 0600 [facility] Last Admin: 07/01/18 05:58 Dose: 40 mg Thiamine HCl (Vitamin B1 Tab) 100 mg PO DAILY [facility] Last Admin: 06/30/18 10:04 Dose: 100 mg - Labs Labs: 06/21/18 06:00 06/21/18 06:00 PT 12.5 SECONDS (9.4-12.5) 12/09/17 10:00 INR 1.09 (0.93-1.08) H 12/09/17 10:00 APTT 28.3 Seconds (25.1-36.5) 11/30/17 05:30 Attending/Attestation - Attestation I have personally seen and examined this patient.: Yes I have fully participated in the care of the patient.: Yes I have reviewed all pertinent clinical information, including history, physical exam and plan: Yes Notes (Text): 06/30/18 57 year old male who was admitted with altered mental status. He was found to have bacteremia, cellulitis and pneumonia for which he has completed antibiotics. He also had CVA. He is on aspirin and statin. Mental status is currently at baseline. Podiatry is following for foot ulceration. Case was discussed with SW today regarding guardianship. Sixto Galo MD Hospitalist.
[2018-06-30] MEDS: Insulin Lispro (humaLOG) LOW Coverage SC SCH ×4 (08:11→21:22)
[2018-06-30] MEDS: Collagenase 250 Units/gm Ointment(30 gm) TOP SCH (10:05)
--- NOTE | 2018-06-30 20:11 | PN ---
DATE: 06/30/2018 SUBJECTIVE: The patient is seen earlier this morning and in no acute distress, nontoxic. PHYSICAL EXAMINATION: VITAL SIGNS: Temperature is 98, blood pressure is 100/60, respiratory rate of 20. HEENT: Unremarkable. NECK: Supple. LUNGS: Have decreased breath sounds. HEART: Normal S1, S2. ABDOMEN: Soft. LABORATORY EXAMINATION: Reveals a white count of 9.4, hemoglobin of 8, platelets of 464. Chemistries are reviewed. ASSESSMENT AND PLAN: A 58-year-old male seen earlier this morning, status post systemic inflammatory response syndrome, no evidence of infection, status post sepsis due to strep viridans and coag-negative staph bacteremia secondary to gluteal and back cellulitis with liver masses on ultrasound, status post multifocal healthcare-associated pneumonia on top of influenza A infection. Currently off of antibiotics, afebrile. The patient is at risk for developing nosocomial infections. Daniel Torres MD
[2018-07-01] MEDS: Pantoprazole 40 mg EC Tab PO SCH (05:58)
[2018-07-01] MEDS: Insulin Lispro (humaLOG) LOW Coverage SC SCH ×4 (07:41→21:22)
[2018-07-01] MEDS: Collagenase 250 Units/gm Ointment(30 gm) TOP SCH (09:55)
--- NOTE | 2018-07-01 13:19 | CP.PCM.PN ---
Subjective - Date & Time of Evaluation Date of Evaluation: 07/01/18 Time of Evaluation: 11:20 - Subjective Subjective: Comfortable in bed, no fevers, not in distress. Objective - Vital Signs/Intake and Output Vital Signs (last 24 hours): Temp Pulse Resp BP Pulse Ox 98.6 F 97 H 20 120/72 96 07/01/18 08:02 07/01/18 09:53 07/01/18 08:02 07/01/18 09:53 07/01/18 08:02 Intake and Output: 07/01/18 07/01/18 06:59 18:59 Intake Total 240 Balance 240 - Medications Medications: Current Medications Aspirin (Aspirin Chewable) 81 mg PO DAILY [facility] Last Admin: 07/01/18 09:52 Dose: 81 mg Citalopram Hydrobromide (Celexa) 10 mg PO DAILY [facility] Last Admin: 07/01/18 09:52 Dose: 10 mg Collagenase (Santyl) 0 gm TOP DAILY [facility] Last Admin: 07/01/18 09:55 Dose: Not Given Insulin Human Lispro (Humalog Low) 0 units SC [facility] PRN Reason: Protocol Last Admin: 07/01/18 12:09 Dose: 1 units Lisinopril (Zestril) 10 mg PO DAILY [facility] Last Admin: 07/01/18 09:53 Dose: 10 mg Metformin HCl (Glucophage) 500 mg PO BID [facility] Last Admin: 07/01/18 09:53 Dose: 500 mg Pantoprazole Sodium (Protonix Ec Tab) 40 mg PO 0600 [facility] Last Admin: 07/01/18 05:58 Dose: 40 mg Thiamine HCl (Vitamin B1 Tab) 100 mg PO DAILY [facility] Last Admin: 07/01/18 09:53 Dose: 100 mg - Labs Labs: 06/21/18 06:00 06/21/18 06:00 PT 12.5 SECONDS (9.4-12.5) 12/09/17 10:00 INR 1.09 (0.93-1.08) H 12/09/17 10:00 APTT 28.3 Seconds (25.1-36.5) 11/30/17 05:30 - Constitutional Appears: No Acute Distress, Chronically Ill - Head Exam Head Exam: NORMAL INSPECTION - Neck Exam Neck Exam: absent: Meningismus - Respiratory Exam Respiratory Exam: Decreased Breath Sounds - Cardiovascular Exam Cardiovascular Exam: +S1, +S2 - GI/Abdominal Exam GI & Abdominal Exam: Soft. absent: Tenderness Assessment and Plan - Assessment and Plan (Free Text) Plan: Assessment S/P systemic inflammatory response syndrome, with no evidence of sepsis or infection, resolved S/P sepsis due to strep viridans and CoNS bacteremia from right gluteal and back cellulitis liver masses noted on ultrasound S/P multifocal HCAP on top of Influenza A infection S/P Sammie infection of sacral area as well peripheral vascular disease Plan continue to monitor clinically off antibiotics since he is at risk for nosocomial infections liver masses noted on ultrasound abdomen - plan as per medical team
--- NOTE | 2018-07-01 13:51 | CP.PCM.PN ---
<Dave Gutierrez - Last Filed: 07/01/18 19:40> Subjective - Date & Time of Evaluation Date of Evaluation: 07/01/18 Time of Evaluation: 05:45 - Subjective Subjective: Dave Gutierrez DO PGY-1, Internal Medicine Resident. Hospitalist Progress Note Patient seen and examined at bedside. Patient is resting in bed. No acute events overnight. Tolerating his diet with regular bowel movements. Patient denied SOB, CP, palpitations, headache, fever. ROS is otherwise negative Objective - Vital Signs/Intake and Output Vital Signs (last 24 hours): Temp Pulse Resp BP Pulse Ox 98.6 F 97 H 20 120/72 96 07/01/18 08:02 07/01/18 09:53 07/01/18 08:02 07/01/18 09:53 07/01/18 08:02 Intake and Output: 07/01/18 07/01/18 06:59 18:59 Intake Total 240 Balance 240 - Medications Medications: Current Medications Aspirin (Aspirin Chewable) 81 mg PO DAILY [facility] Last Admin: 07/01/18 09:52 Dose: 81 mg Citalopram Hydrobromide (Celexa) 10 mg PO DAILY [facility] Last Admin: 07/01/18 09:52 Dose: 10 mg Collagenase (Santyl) 0 gm TOP DAILY [facility] Last Admin: 07/01/18 09:55 Dose: Not Given Insulin Human Lispro (Humalog Low) 0 units SC [facility] PRN Reason: Protocol Last Admin: 07/01/18 12:09 Dose: 1 units Lisinopril (Zestril) 10 mg PO DAILY [facility] Last Admin: 07/01/18 09:53 Dose: 10 mg Metformin HCl (Glucophage) 500 mg PO BID [facility] Last Admin: 07/01/18 09:53 Dose: 500 mg Pantoprazole Sodium (Protonix Ec Tab) 40 mg PO 0600 [facility] Last Admin: 07/01/18 05:58 Dose: 40 mg Thiamine HCl (Vitamin B1 Tab) 100 mg PO DAILY [facility] Last Admin: 07/01/18 09:53 Dose: 100 mg - Labs Labs: 06/21/18 06:00 06/21/18 06:00 PT 12.5 SECONDS (9.4-12.5) 12/09/17 10:00 INR 1.09 (0.93-1.08) H 12/09/17 10:00 APTT 28.3 Seconds (25.1-36.5) 11/30/17 05:30 - Additional Findings Additional findings: - Constitutional Appears: Non-toxic, No Acute Distress - Head Exam Head Exam: ATRAUMATIC, NORMAL INSPECTION - Eye Exam Eye Exam: EOMI, Normal appearance, PERRL - ENT Exam ENT Exam: Mucous Membranes Moist - Respiratory Exam Respiratory Exam: Clear to Ausculation Bilateral, NORMAL BREATHING PATTERN - Cardiovascular Exam Cardiovascular Exam: REGULAR RHYTHM, +S1, +S2 - GI/Abdominal Exam GI & Abdominal Exam: Soft, Normal Bowel Sounds. absent: Distended, Guarding, Tenderness, Organomegaly, Rebound - Extremities Exam Extremities Exam: Full ROM, Normal Capillary Refill, Normal Inspection - Neurological Exam Neurological Exam: Alert, Awake, CN II-XII Intact Additional comments: Oriented x2 Assessment and Plan - Assessment and Plan (Free Text) Assessment: 57 y/o male with unknown PMHx admitted on 11/29/17 for AMS, right hip cellulitis , multifocal pneumonia, influenza A, strep viridians bacteremia with findings of stroke on MRI - acute vs. 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 Patient was treated for bacteremia with IV abx. Patient is stable and awaiting state guardianship and future placement. Plan: HTN -BP Stable, continue to monitor -Continue Lisinopril, Amlodipine Colonic mass - CT A/P showing colonic mass and hepatic lesions - Patient is altered. no family present for consent - patient refused colonscopy Affective disorder - Continue Celexa Hepatic lesions -Using abd U/S: measuring up to 4.9cm and 3.8 cm. compared to 4.1cm and 3.1cm in . stable size -patient asymptomatic Anemia -microcytic anemia -low Iron, TIBC wnl -continue iron supplement -continue Colace, Miralax for constipation Altered mental status - Patient is at baseline -Cont ASA, lipitor Dorsal Right Foot Ulcer -clean wound. no signs of infection. no treatment required -continue wound care Diabetes mellitus type 2 - Cont ISS low. accuchecks -Cont Metformin Hx ETOH Abuse - Continue Thiamine, Multivitamin, Folic Acid Prophylaxis: -SCDs for DVT -continue delirium precautions As per social service assistant note: spoke with morning news anchor who advised that court is in agreement with guardianship. Placido Polo was appointed guardian, patient access was requested to change information in chart. Nursing Aide also advised that the court is going to give an order to patient's bank to release five years of bank statements to placido polo. PA 4 and 5 placed in chart to be completed. will request a PAS for state. Forms will be filled out by Wednesday Case reviewed and plan discussed with Dr. Galo <Sixto Galo - Last Filed: 07/02/18 07:03> Objective - Vital Signs/Intake and Output Vital Signs (last 24 hours): Temp Pulse Resp BP Pulse Ox 98.1 F 79 20 95/62 L 95 07/02/18 06:00 07/02/18 06:00 07/02/18 06:00 07/02/18 06:00 07/02/18 06:00 - Medications Medications: Current Medications Aspirin (Aspirin Chewable) 81 mg PO DAILY [facility] Last Admin: 07/01/18 09:52 Dose: 81 mg Citalopram Hydrobromide (Celexa) 10 mg PO DAILY [facility] Last Admin: 07/01/18 09:52 Dose: 10 mg Collagenase (Santyl) 0 gm TOP DAILY [facility] Last Admin: 07/01/18 09:55 Dose: Not Given Insulin Human Lispro (Humalog Low) 0 units SC [facility] PRN Reason: Protocol Last Admin: 07/01/18 21:22 Dose: Not Given Lisinopril (Zestril) 10 mg PO DAILY [facility] Last Admin: 07/01/18 09:53 Dose: 10 mg Metformin HCl (Glucophage) 500 mg PO BID [facility] Last Admin: 07/01/18 17:09 Dose: 500 mg Pantoprazole Sodium (Protonix Ec Tab) 40 mg PO 0600 [facility] Last Admin: 07/02/18 05:43 Dose: 40 mg Thiamine HCl (Vitamin B1 Tab) 100 mg PO DAILY [facility] Last Admin: 07/01/18 09:53 Dose: 100 mg - Labs Labs: 06/21/18 06:00 06/21/18 06:00 PT 12.5 SECONDS (9.4-12.5) 12/09/17 10:00 INR 1.09 (0.93-1.08) H 12/09/17 10:00 APTT 28.3 Seconds (25.1-36.5) 11/30/17 05:30 Attending/Attestation - Attestation I have personally seen and examined this patient.: Yes I have fully participated in the care of the patient.: Yes I have reviewed all pertinent clinical information, including history, physical exam and plan: Yes Notes (Text): 07/01/18 57 year old male who was admitted with altered mental status. He was found to have bacteremia, cellulitis and pneumonia for which he has completed antibiotics. He also had CVA. He is on aspirin and statin. Mental status is currently at baseline. No new complaints today. Podiatry is following for foot ulceration. Case was discussed with SW; guardianship has been appointed. PA4-5 form to be completed. Sixto Galo MD Hospitalist.
[2018-07-02] MEDS: Pantoprazole 40 mg EC Tab PO SCH (05:43)
--- NOTE | 2018-07-02 06:37 | CP.PCM.PN ---
<Dave Gutierrez - Last Filed: 07/02/18 19:40> Subjective - Date & Time of Evaluation Date of Evaluation: 07/02/18 Time of Evaluation: 06:02 - Subjective Subjective: Dave Gutierrez DO PGY-1, Internal Medicine Resident. Hospitalist Progress Note Patient seen and examined at bedside. Patient is resting in bed. No acute events overnight. Tolerating his diet with regular bowel movements. Patient denied SOB, CP, palpitations, headache, fever. ROS is otherwise negative Objective - Vital Signs/Intake and Output Vital Signs (last 24 hours): Temp Pulse Resp BP Pulse Ox 97.3 F L 68 20 126/78 98 07/01/18 16:17 07/01/18 16:17 07/01/18 16:17 07/01/18 16:17 07/01/18 16:17 Intake and Output: 07/01/18 07/02/18 18:59 06:59 Intake Total 730 Output Total 3 Balance 727 - Medications Medications: Current Medications Aspirin (Aspirin Chewable) 81 mg PO DAILY [facility] Last Admin: 07/01/18 09:52 Dose: 81 mg Citalopram Hydrobromide (Celexa) 10 mg PO DAILY [facility] Last Admin: 07/01/18 09:52 Dose: 10 mg Collagenase (Santyl) 0 gm TOP DAILY [facility] Last Admin: 07/01/18 09:55 Dose: Not Given Insulin Human Lispro (Humalog Low) 0 units SC [facility] PRN Reason: Protocol Last Admin: 07/01/18 21:22 Dose: Not Given Lisinopril (Zestril) 10 mg PO DAILY [facility] Last Admin: 07/01/18 09:53 Dose: 10 mg Metformin HCl (Glucophage) 500 mg PO BID [facility] Last Admin: 07/01/18 17:09 Dose: 500 mg Pantoprazole Sodium (Protonix Ec Tab) 40 mg PO 0600 [facility] Last Admin: 07/02/18 05:43 Dose: 40 mg Thiamine HCl (Vitamin B1 Tab) 100 mg PO DAILY [facility] Last Admin: 07/01/18 09:53 Dose: 100 mg - Labs Labs: 06/21/18 06:00 06/21/18 06:00 PT 12.5 SECONDS (9.4-12.5) 12/09/17 10:00 INR 1.09 (0.93-1.08) H 02/22/18 10:00 APTT 28.3 Seconds (25.1-36.5) 11/30/17 05:30 - Additional Findings Additional findings: - Constitutional Appears: Non-toxic, No Acute Distress - Head Exam Head Exam: ATRAUMATIC, NORMAL INSPECTION - Eye Exam Eye Exam: EOMI, Normal appearance, PERRL - ENT Exam ENT Exam: Mucous Membranes Moist - Respiratory Exam Respiratory Exam: Clear to Ausculation Bilateral, NORMAL BREATHING PATTERN - Cardiovascular Exam Cardiovascular Exam: REGULAR RHYTHM, +S1, +S2 - GI/Abdominal Exam GI & Abdominal Exam: Soft, Normal Bowel Sounds. absent: Distended, Guarding, Tenderness, Organomegaly, Rebound - Extremities Exam Extremities Exam: Full ROM, Normal Capillary Refill, Normal Inspection - Neurological Exam Neurological Exam: Alert, Awake, CN II-XII Intact Additional comments: Oriented x2 Assessment and Plan - Assessment and Plan (Free Text) Assessment: 57 y/o male with unknown PMHx admitted on 11/29/17 for AMS, right hip cellulitis , multifocal pneumonia, influenza A, strep viridians bacteremia with findings of stroke on MRI - acute vs. 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 Patient was treated for bacteremia with IV abx. Patient is stable and awaiting state guardianship and future placement. Plan: HTN -BP Stable, continue to monitor -Continue Lisinopril, Amlodipine Anemia -microcytic anemia -low Iron, TIBC wnl -continue iron supplement -continue Colace, Miralax for constipation Colonic mass - CT A/P showing colonic mass and hepatic lesions - Patient is altered. no family present for consent - patient refused colonscopy Affective disorder - Continue Celexa Hepatic lesions -Using abd U/S: measuring up to 4.9cm and 3.8 cm. compared to 4.1cm and 3.1cm in . stable size -patient asymptomatic Altered mental status - Patient is at baseline -Cont ASA, lipitor Dorsal Right Foot Ulcer -clean wound. no signs of infection. no treatment required -continue wound care Diabetes mellitus type 2 - Cont ISS low. accuchecks -Cont Metformin Hx ETOH Abuse - Continue Thiamine, Multivitamin, Folic Acid Prophylaxis: -SCDs for DVT -continue delirium precautions As per pediatric social worker note: spoke with warehouse supervisor 3rd shift who advised that court is in agreement with guardianship. Placido Polo was appointed guardian, patient access was requested to change information in chart. Management Trainee Program Stores also advised that the court is going to give an order to patient's bank to release five years of bank statements to placido polo. PA 4 and 5 placed in chart to be completed. will request a PAS for state. Forms will be filled out by Wednesday Case reviewed and plan discussed with Dr. Galo <Sixto Galo - Last Filed: 07/03/18 07:01> Objective - Vital Signs/Intake and Output Vital Signs (last 24 hours): Temp Pulse Resp BP Pulse Ox 98.4 F 95 H 20 127/86 95 07/02/18 16:32 07/02/18 16:32 07/02/18 16:32 07/02/18 16:32 07/02/18 16:32 - Medications Medications: Current Medications Aspirin (Aspirin Chewable) 81 mg PO DAILY [facility] Citalopram Hydrobromide (Celexa) 10 mg PO DAILY [facility] Collagenase (Santyl) 0 gm TOP DAILY [facility] Insulin Human Lispro (Humalog Low) 0 units SC [facility] PRN Reason: Protocol Last Admin: 07/02/18 21:22 Dose: Not Given Lisinopril (Zestril) 10 mg PO DAILY [facility] Metformin HCl (Glucophage) 500 mg PO BID [facility] Last Admin: 07/02/18 17:07 Dose: 500 mg Pantoprazole Sodium (Protonix Ec Tab) 40 mg PO 0600 [facility] Thiamine HCl (Vitamin B1 Tab) 100 mg PO DAILY [facility] - Labs Labs: 06/21/18 06:00 06/21/18 06:00 PT 12.5 SECONDS (9.4-12.5) 12/09/17 10:00 INR 1.09 (0.93-1.08) H 12/09/17 10:00 APTT 28.3 Seconds (25.1-36.5) 11/30/17 05:30 Attending/Attestation - Attestation I have personally seen and examined this patient.: Yes I have fully participated in the care of the patient.: Yes I have reviewed all pertinent clinical information, including history, physical exam and plan: Yes Notes (Text): 07/02/18 57 year old male who was admitted with altered mental status. He was found to have bacteremia, cellulitis and pneumonia for which he has completed antibiotics. He also had CVA. He is on aspirin and statin. Mental status is currently at baseline. Podiatry is following for foot ulceration. Court date was last week; guardianship has been appointed. Will follow up with pediatric social worker this week. Sixto Galo MD Hospitalist.
[2018-07-02] MEDS: Insulin Lispro (humaLOG) LOW Coverage SC SCH ×4 (07:37→21:22)
[2018-07-02] MEDS: Collagenase 250 Units/gm Ointment(30 gm) TOP SCH (09:14)
--- NOTE | 2018-07-02 12:28 | PN ---
DATE: 07/02/2018 SUBJECTIVE: The patient is in bed, in no acute distress. The patient has no fevers and chills. PHYSICAL EXAMINATION: VITAL SIGNS: Temperature is 98, blood pressure is 100/60, respiratory rate 20, heart rate of 60. HEENT: Unremarkable. NECK: Supple. LUNGS: Have decreased breath sounds. HEART: Normal S1 and S2. ABDOMINAL: Soft, nontender. LABORATORY EXAMINATION: Reveals a white count of 9.4, hemoglobin of 8, platelets of 461. Chemistries are noted. BUN of 16, creatinine of 0.5. Urinalysis is noted. ASSESSMENT AND PLAN: A 57-year-old with systemic inflammatory response syndrome. No evidence of sepsis, status post resolution, status post sepsis for Streptococcus viridans bacteremia and coagulase-negative bacteremia secondary to right gluteal and back cellulitis. Liver masses on ultrasound, status post multifocal healthcare-associated pneumonia on top of influenza A infection and Sammie sacral area. Currently off of antibiotics, afebrile. The patient is at risk for developing nosocomial infections. Daniel Torres MD
--- NOTE | 2018-07-03 06:40 | CP.PCM.PN ---
<Dave Gutierrez - Last Filed: 07/03/18 15:07> Subjective - Date & Time of Evaluation Date of Evaluation: 07/03/18 Time of Evaluation: 06:40 - Subjective Subjective: Dave Gutierrez DO PGY-1, Internal Medicine Resident. Hospitalist Progress Note Patient seen and examined at bedside. Patient is resting in bed. No acute events overnight. Tolerating his diet with regular bowel movements. Patient denied SOB, CP, palpitations, headache, fever. Objective - Vital Signs/Intake and Output Vital Signs (last 24 hours): Temp Pulse Resp BP Pulse Ox 98.4 F 95 H 20 127/86 95 07/02/18 16:32 07/02/18 16:32 07/02/18 16:32 07/02/18 16:32 07/02/18 16:32 Intake and Output: 07/02/18 07/03/18 18:59 06:59 Intake Total 560 Balance 560 - Medications Medications: Current Medications Aspirin (Aspirin Chewable) 81 mg PO DAILY [facility] Citalopram Hydrobromide (Celexa) 10 mg PO DAILY [facility] Collagenase (Santyl) 0 gm TOP DAILY [facility] Insulin Human Lispro (Humalog Low) 0 units SC [facility] PRN Reason: Protocol Last Admin: 07/02/18 21:22 Dose: Not Given Lisinopril (Zestril) 10 mg PO DAILY [facility] Metformin HCl (Glucophage) 500 mg PO BID [facility] Last Admin: 07/02/18 17:07 Dose: 500 mg Pantoprazole Sodium (Protonix Ec Tab) 40 mg PO 0600 [facility] Thiamine HCl (Vitamin B1 Tab) 100 mg PO DAILY [facility] - Labs Labs: 06/21/18 06:00 06/21/18 06:00 PT 12.5 SECONDS (9.4-12.5) 12/09/17 10:00 INR 1.09 (0.93-1.08) H 12/09/17 10:00 APTT 28.3 Seconds (25.1-36.5) 11/30/17 05:30 - Additional Findings Additional findings: - Constitutional Appears: Non-toxic, No Acute Distress - Head Exam Head Exam: ATRAUMATIC, NORMAL INSPECTION - Eye Exam Eye Exam: EOMI, Normal appearance, PERRL - ENT Exam ENT Exam: Mucous Membranes Moist - Respiratory Exam Respiratory Exam: Clear to Ausculation Bilateral, NORMAL BREATHING PATTERN - Cardiovascular Exam Cardiovascular Exam: REGULAR RHYTHM, +S1, +S2 - GI/Abdominal Exam GI & Abdominal Exam: Soft, Normal Bowel Sounds. absent: Distended, Guarding, Tenderness, Organomegaly, Rebound - Extremities Exam Extremities Exam: Full ROM, Normal Capillary Refill, Normal Inspection - Neurological Exam Neurological Exam: Alert, Awake, CN II-XII Intact Additional comments: Oriented x2 Assessment and Plan - Assessment and Plan (Free Text) Assessment: 57 y/o male with unknown PMHx admitted on 11/29/17 for AMS, right hip cellulitis , multifocal pneumonia, influenza A, strep viridians bacteremia with findings of stroke on MRI - acute vs. 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 Patient was treated for bacteremia with IV abx. Patient is stable and awaiting state guardianship and future placement. Plan: HTN -BP Stable, continue to monitor -Continue Lisinopril, Amlodipine Anemia -microcytic anemia -low Iron, TIBC wnl -continue iron supplement -continue Colace, Miralax for constipation Colonic mass - CT A/P showing colonic mass and hepatic lesions - Patient is altered. no family present for consent - patient refused colonscopy Affective disorder - Continue Celexa Hepatic lesions -Using abd U/S: measuring up to 4.9cm and 3.8 cm. compared to 4.1cm and 3.1cm in . stable size -patient asymptomatic Altered mental status - Patient is at baseline -Cont ASA, lipitor Dorsal Right Foot Ulcer -clean wound. no signs of infection. no treatment required -continue wound care Diabetes mellitus type 2 - Cont ISS low. accuchecks -Cont Metformin Hx ETOH Abuse - Continue Thiamine, Multivitamin, Folic Acid Prophylaxis: -SCDs for DVT -continue delirium precautions As per social work program coordinator note: spoke with patient assistant who advised that court is in agreement with guardianship. Placido Polo was appointed guardian, patient access was requested to change information in chart. [employer] Processor also advised that the court is going to give an order to patient's bank to release five years of bank statements to placido macdonalden. PA 4 and 5 placed in chart to be completed. will request a PAS for state. Forms will be filled out by Wednesday Case reviewed and plan discussed with Dr. Galo <Sixto Galo - Last Filed: 07/03/18 16:38> Objective - Vital Signs/Intake and Output Vital Signs (last 24 hours): Temp Pulse Resp BP Pulse Ox 98.1 F 92 H 20 111/67 97 07/03/18 16:28 07/03/18 16:28 07/03/18 16:28 07/03/18 16:28 07/03/18 16:28 - Medications Medications: Current Medications Aspirin (Aspirin Chewable) 81 mg PO DAILY [facility] Last Admin: 07/03/18 09:03 Dose: 81 mg Citalopram Hydrobromide (Celexa) 10 mg PO DAILY [facility] Last Admin: 07/03/18 09:03 Dose: 10 mg Collagenase (Santyl) 0 gm TOP DAILY [facility] Last Admin: 07/03/18 09:02 Dose: 1 applic Insulin Human Lispro (Humalog Low) 0 units SC [facility] PRN Reason: Protocol Last Admin: 07/03/18 11:59 Dose: 1 units Lisinopril (Zestril) 10 mg PO DAILY [facility] Last Admin: 07/03/18 09:03 Dose: 10 mg Metformin HCl (Glucophage) 500 mg PO BID [facility] Last Admin: 07/03/18 09:03 Dose: 500 mg Pantoprazole Sodium (Protonix Ec Tab) 40 mg PO 0600 [facility] Thiamine HCl (Vitamin B1 Tab) 100 mg PO DAILY [facility] Last Admin: 07/03/18 09:03 Dose: 100 mg - Labs Labs: 06/21/18 06:00 06/21/18 06:00 PT 12.5 SECONDS (9.4-12.5) 12/09/17 10:00 INR 1.09 (0.93-1.08) H 12/09/17 10:00 APTT 28.3 Seconds (25.1-36.5) 11/30/17 05:30 Attending/Attestation - Attestation I have personally seen and examined this patient.: Yes I have fully participated in the care of the patient.: Yes I have reviewed all pertinent clinical information, including history, physical exam and plan: Yes Notes (Text): 07/03/18 16:37 57 year old male who was admitted with altered mental status. He was found to have bacteremia, cellulitis and pneumonia for which he has completed antibiotics. He also had CVA. He is on aspirin and statin. Mental status is currently at baseline. No new complaints this morning. Podiatry is following for foot ulceration. Court date was last week; guardianship has been appointed. PA 4 and 5 formed filled and placed in chart. Will follow up with social work program coordinator tomorrow. Sixto Galo MD Hospitalist.
[2018-07-03] MEDS: Insulin Lispro (humaLOG) LOW Coverage SC SCH ×4 (07:47→21:37)
[2018-07-03] MEDS: Collagenase 250 Units/gm Ointment(30 gm) TOP SCH (09:02)
--- NOTE | 2018-07-03 14:47 | PN ---
DATE: 07/03/2018 SUBJECTIVE: The patient is in bed, in no acute distress, nontoxic. PHYSICAL EXAMINATION: VITAL SIGNS: On exam, temperature is 98, blood pressure is 100/60, respiratory rate of 18. HEENT: Examination of HEENT is unremarkable. NECK: Supple. LUNGS: Have decreased breath sounds. HEART: Normal S1, S2. ABDOMEN: Soft, nontender. LABORATORY DATA: Laboratory examination reveals a white count of 12,800, hemoglobin of 9, platelets of 215. BUN of 17, creatinine of 0.5. LFTs are noted. Microbiology is reviewed. Review of orders revealed the patient to be on ceftriaxone and the patient is also on prednisone. ASSESSMENT AND PLAN: A 45-year-old male seen in 363, bed 2. Earlier admitted with severe sepsis, acute renal failure, Escherichia coli bacteremia, Escherichia coli urinary tract infection with severe alcoholic hepatitis, acute renal failure and chronic alcohol abuse and pancreatic tail lesion. Today is day #12 of ceftriaxone. May switch to p.o. Cipro to complete 14 days upon discharge. Daniel Torres MD
--- NOTE | 2018-07-03 15:05 | PN ---
DATE: 07/03/2018 SUBJECTIVE: The patient is in bed, in no acute distress, nontoxic. OBJECTIVE: VITAL SIGNS: On exam, temperature is 98, blood pressure is 111/70, respiratory rate of 20. HEENT: Examination is unremarkable. NECK: Supple. LUNGS: Have decreased breath sounds. HEART: Normal S1, S2. ABDOMEN: Soft, nontender. DATA: Laboratory examination reveals a white count of 9.4, hemoglobin of 8. Chemistries are noted. ASSESSMENT AND PLAN: This is a 57-year-old male with systemic inflammatory response syndrome. Repeat culture is negative, initially status post sepsis with strep viridans bacteremia, coag-negative bacteremia secondary to right gluteal and back cellulitis, found to have liver masses on ultrasound, also had multifocal healthcare-associated pneumonia on top of influenza A in a patient who had Sammie in sacral area, currently off of antibiotics, afebrile. The patient is at risk for developing nosocomial infections. Daniel Torres MD
[2018-07-04] MEDS: Pantoprazole 40 mg EC Tab PO SCH (05:11)
--- NOTE | 2018-07-04 06:20 | CP.PCM.PN ---
<Dave Gutierrez - Last Filed: 07/04/18 14:50> Subjective - Date & Time of Evaluation Date of Evaluation: 07/04/18 Time of Evaluation: 05:42 - Subjective Subjective: Dave Gutierrez DO PGY-1, Internal Medicine Resident. Hospitalist Progress Note Patient seen and examined at bedside. Patient is resting in bed. No acute events overnight. Tolerating his diet with regular bowel movements. Patient denied SOB, CP, palpitations, headache, fever. Objective - Vital Signs/Intake and Output Vital Signs (last 24 hours): Temp Pulse Resp BP Pulse Ox 98.1 F 92 H 20 111/67 97 07/03/18 16:28 07/03/18 16:28 07/03/18 16:28 07/03/18 16:28 07/03/18 16:28 Intake and Output: 07/03/18 07/04/18 18:59 06:59 Intake Total 1340 Balance 1340 - Medications Medications: Current Medications Aspirin (Aspirin Chewable) 81 mg PO DAILY [facility] Last Admin: 07/03/18 09:03 Dose: 81 mg Citalopram Hydrobromide (Celexa) 10 mg PO DAILY [facility] Last Admin: 07/03/18 09:03 Dose: 10 mg Collagenase (Santyl) 0 gm TOP DAILY [facility] Last Admin: 07/03/18 09:02 Dose: 1 applic Insulin Human Lispro (Humalog Low) 0 units SC ACHS [facility] PRN Reason: Protocol Last Admin: 07/03/18 21:37 Dose: Not Given Lisinopril (Zestril) 10 mg PO DAILY [facility] Last Admin: 07/03/18 09:03 Dose: 10 mg Metformin HCl (Glucophage) 500 mg PO BID [facility] Last Admin: 07/03/18 17:00 Dose: 500 mg Pantoprazole Sodium (Protonix Ec Tab) 40 mg PO 0600 [facility] Last Admin: 07/04/18 05:11 Dose: 40 mg Thiamine HCl (Vitamin B1 Tab) 100 mg PO DAILY [facility] Last Admin: 07/03/18 09:03 Dose: 100 mg - Labs Labs: 06/21/18 06:00 06/21/18 06:00 PT 12.5 SECONDS (9.4-12.5) 12/09/17 10:00 INR 1.09 (0.93-1.08) H 12/09/17 10:00 APTT 28.3 Seconds (25.1-36.5) 11/30/17 05:30 - Constitutional Appears: Well - Head Exam Head Exam: ATRAUMATIC, NORMAL INSPECTION, NORMOCEPHALIC - Eye Exam Eye Exam: EOMI, Normal appearance, PERRL Pupil Exam: NORMAL ACCOMODATION, PERRL - ENT Exam ENT Exam: Mucous Membranes Moist, Normal Exam - Neck Exam Neck Exam: Full ROM, Normal Inspection. absent: Lymphadenopathy - Respiratory Exam Respiratory Exam: Clear to Ausculation Bilateral, NORMAL BREATHING PATTERN - Cardiovascular Exam Cardiovascular Exam: REGULAR RHYTHM, +S1, +S2 - GI/Abdominal Exam GI & Abdominal Exam: Soft, Normal Bowel Sounds. absent: Tenderness - Extremities Exam Extremities Exam: Full ROM, Normal Capillary Refill, Normal Inspection. absent : Joint Swelling, Pedal Edema Additional comments: Dorsal Right Foot Ulcer. clean , no signs of infection - Back Exam Back Exam: NORMAL INSPECTION - Neurological Exam Neurological Exam: Alert, Awake, CN II-XII Intact - Psychiatric Exam Psychiatric exam: Depressed, Flat Affect - Skin Skin Exam: Dry, Intact, Normal Color, Warm Assessment and Plan - Assessment and Plan (Free Text) Assessment: 57 y/o male with unknown PMHx admitted on 11/29/17 for AMS, right hip cellulitis , multifocal pneumonia, influenza A, strep viridians bacteremia with findings of stroke on MRI - acute vs. 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 Patient was treated for bacteremia with IV abx. Patient is stable and awaiting state guardianship and future placement. Plan: HTN -BP Stable, continue to monitor -Continue Lisinopril, Amlodipine Anemia -microcytic anemia -low Iron, TIBC wnl -continue iron supplement -continue Colace, Miralax for constipation Colonic mass - CT A/P showing colonic mass and hepatic lesions - Patient is altered. no family present for consent - patient refused colonscopy Affective disorder - Continue Celexa Hepatic lesions -Using abd U/S: measuring up to 4.9cm and 3.8 cm. compared to 4.1cm and 3.1cm in . stable size -patient asymptomatic Altered mental status - Patient is at baseline -Continue ASA, lipitor Dorsal Right Foot Ulcer -clean wound. no signs of infection. no treatment required -continue wound care Diabetes mellitus type 2 - Continue ISS low. accuchecks -Continue Metformin Hx ETOH Abuse - Continue Thiamine, Multivitamin, Folic Acid Prophylaxis: -SCDs for DVT -continue delirium precautions As per social insurance adviser note: spoke with spud grader who advised that court is in agreement with guardianship. Placido Polo was appointed guardian, patient access was requested to change information in chart. Belt Maker Helper also advised that the court is going to give an order to patient's bank to release five years of bank statements to placido polo. PA 4 and 5 placed in chart to be completed. will request a PAS for state. PA 4 and 5 formed filled and placed in chart. Will follow up with social insurance adviser Case reviewed and plan discussed with Dr. Schumacher <Deanna Schumacher - Last Filed: 07/04/18 17:05> Objective - Vital Signs/Intake and Output Vital Signs (last 24 hours): Temp Pulse Resp BP Pulse Ox 97.9 F 68 19 94/55 L 98 07/04/18 16:38 07/04/18 16:38 07/04/18 16:38 07/04/18 16:38 07/04/18 16:38 - Medications Medications: Current Medications Aspirin (Aspirin Chewable) 81 mg PO DAILY [facility] Last Admin: 07/04/18 09:33 Dose: 81 mg Citalopram Hydrobromide (Celexa) 10 mg PO DAILY [facility] Last Admin: 07/04/18 09:33 Dose: 10 mg Collagenase (Santyl) 0 gm TOP DAILY [facility] Last Admin: 07/04/18 09:36 Dose: 1 applic Insulin Human Lispro (Humalog Low) 0 units SC [facility] PRN Reason: Protocol Last Admin: 07/04/18 16:50 Dose: 1 units Lisinopril (Zestril) 10 mg PO DAILY [facility] Last Admin: 07/04/18 09:35 Dose: 10 mg Metformin HCl (Glucophage) 500 mg PO BID [facility] Last Admin: 07/04/18 09:34 Dose: 500 mg Pantoprazole Sodium (Protonix Ec Tab) 40 mg PO 0600 [facility] Last Admin: 07/04/18 05:11 Dose: 40 mg Thiamine HCl (Vitamin B1 Tab) 100 mg PO DAILY [facility] Last Admin: 07/04/18 09:34 Dose: 100 mg - Labs Labs: 06/21/18 06:00 06/21/18 06:00 PT 12.5 SECONDS (9.4-12.5) 12/09/17 10:00 INR 1.09 (0.93-1.08) H 12/09/17 10:00 APTT 28.3 Seconds (25.1-36.5) 11/30/17 05:30 Attending/Attestation - Attestation I have personally seen and examined this patient.: Yes I have fully participated in the care of the patient.: Yes I have reviewed all pertinent clinical information, including history, physical exam and plan: Yes Notes (Text): 07/04/18 17:05 Medical record note made by the resident after discussion with my direction and input after the patient was personally seen and examined by me. I have reviewed the chart and agree that the record accurately reflects by personal performance of the history, physical exam, data review, and medical decision-making, in the course for the patient. I have also personally directed the plan of care.
[2018-07-04] MEDS: Insulin Lispro (humaLOG) LOW Coverage SC SCH ×4 (08:18→22:01)
[2018-07-04] MEDS: Collagenase 250 Units/gm Ointment(30 gm) TOP SCH (09:36)
--- NOTE | 2018-07-04 12:45 | CP.PCM.PN ---
Subjective - Date & Time of Evaluation Date of Evaluation: 07/04/18 Time of Evaluation: 10:45 - Subjective Subjective: No fevers, not in distress, comfortable in bed. Objective - Vital Signs/Intake and Output Vital Signs (last 24 hours): Temp Pulse Resp BP Pulse Ox 97.8 F 85 20 110/70 96 07/04/18 07:44 07/04/18 09:35 07/04/18 07:44 07/04/18 09:35 07/04/18 07:44 - Medications Medications: Current Medications Aspirin (Aspirin Chewable) 81 mg PO DAILY [facility] Last Admin: 07/04/18 09:33 Dose: 81 mg Citalopram Hydrobromide (Celexa) 10 mg PO DAILY [facility] Last Admin: 07/04/18 09:33 Dose: 10 mg Collagenase (Santyl) 0 gm TOP DAILY [facility] Last Admin: 07/04/18 09:36 Dose: 1 applic Insulin Human Lispro (Humalog Low) 0 units SC ACHS [facility] PRN Reason: Protocol Last Admin: 07/04/18 08:18 Dose: Not Given Lisinopril (Zestril) 10 mg PO DAILY [facility] Last Admin: 07/04/18 09:35 Dose: 10 mg Metformin HCl (Glucophage) 500 mg PO BID [facility] Last Admin: 07/04/18 09:34 Dose: 500 mg Pantoprazole Sodium (Protonix Ec Tab) 40 mg PO 0600 [facility] Last Admin: 07/04/18 05:11 Dose: 40 mg Thiamine HCl (Vitamin B1 Tab) 100 mg PO DAILY [facility] Last Admin: 07/04/18 09:34 Dose: 100 mg - Labs Labs: 06/21/18 06:00 06/21/18 06:00 PT 12.5 SECONDS (9.4-12.5) 12/09/17 10:00 INR 1.09 (0.93-1.08) H 12/09/17 10:00 APTT 28.3 Seconds (25.1-36.5) 11/30/17 05:30 - Constitutional Appears: Chronically Ill - Head Exam Head Exam: NORMAL INSPECTION - Respiratory Exam Respiratory Exam: Decreased Breath Sounds - Cardiovascular Exam Cardiovascular Exam: +S1, +S2 - GI/Abdominal Exam GI & Abdominal Exam: Soft. absent: Tenderness Assessment and Plan - Assessment and Plan (Free Text) Plan: Assessment S/P systemic inflammatory response syndrome, with no evidence of sepsis or infection, resolved S/P sepsis due to strep viridans and CoNS bacteremia from right gluteal and back cellulitis liver masses noted on ultrasound S/P multifocal HCAP on top of Influenza A infection S/P Sammie infection of sacral area as well peripheral vascular disease Plan continue to monitor clinically off antibiotics since he is at risk for hospital- acquired infections liver masses noted on ultrasound abdomen - plan as per medical team
[2018-07-05] MEDS: Pantoprazole 40 mg EC Tab PO SCH (05:07)
--- NOTE | 2018-07-05 06:26 | CP.PCM.PN ---
<Dave Gutierrez - Last Filed: 07/05/18 18:16> Subjective - Date & Time of Evaluation Date of Evaluation: 07/05/18 Time of Evaluation: 06:13 - Subjective Subjective: Dave Gutierrez DO PGY-1, Internal Medicine Resident. Hospitalist Progress Note Patient seen and examined at bedside. Patient is resting in bed. No acute events overnight. Tolerating his diet with regular bowel movements. Patient denied SOB, CP, palpitations, headache, fever. Objective - Vital Signs/Intake and Output Vital Signs (last 24 hours): Temp Pulse Resp BP Pulse Ox 97.9 F 68 19 94/55 L 98 07/04/18 16:38 07/04/18 16:38 07/04/18 16:38 07/04/18 16:38 07/04/18 16:38 Intake and Output: 07/04/18 07/05/18 18:59 06:59 Intake Total 600 Balance 600 - Medications Medications: Current Medications Aspirin (Aspirin Chewable) 81 mg PO DAILY [facility] Last Admin: 07/04/18 09:33 Dose: 81 mg Citalopram Hydrobromide (Celexa) 10 mg PO DAILY [facility] Last Admin: 07/04/18 09:33 Dose: 10 mg Collagenase (Santyl) 0 gm TOP DAILY [facility] Last Admin: 07/04/18 09:36 Dose: 1 applic Insulin Human Lispro (Humalog Low) [address] [facility] PRN Reason: Protocol Last Admin: 07/04/18 22:01 Dose: Not Given Lisinopril (Zestril) 10 mg PO DAILY [facility] Last Admin: 07/04/18 09:35 Dose: 10 mg Metformin HCl (Glucophage) 500 mg PO BID [facility] Last Admin: 07/04/18 17:01 Dose: 500 mg Pantoprazole Sodium (Protonix Ec Tab) 40 mg PO 0600 [facility] Last Admin: 07/05/18 05:07 Dose: 40 mg Thiamine HCl (Vitamin B1 Tab) 100 mg PO DAILY [facility] Last Admin: 07/04/18 09:34 Dose: 100 mg - Labs Labs: 06/21/18 06:00 06/21/18 06:00 PT 12.5 SECONDS (9.4-12.5) 12/09/17 10:00 INR 1.09 (0.93-1.08) H 12/09/17 10:00 APTT 28.3 Seconds (25.1-36.5) 11/30/17 05:30 - Additional Findings Additional findings: - Constitutional Appears: Well - Head Exam Head Exam: ATRAUMATIC, NORMAL INSPECTION, NORMOCEPHALIC - Eye Exam Eye Exam: EOMI, Normal appearance, PERRL Pupil Exam: NORMAL ACCOMODATION, PERRL - ENT Exam ENT Exam: Mucous Membranes Moist, Normal Exam - Neck Exam Neck Exam: Full ROM, Normal Inspection. absent: Lymphadenopathy - Respiratory Exam Respiratory Exam: Clear to Ausculation Bilateral, NORMAL BREATHING PATTERN - Cardiovascular Exam Cardiovascular Exam: REGULAR RHYTHM, +S1, +S2 - GI/Abdominal Exam GI & Abdominal Exam: Soft, Normal Bowel Sounds. absent: Tenderness - Extremities Exam Extremities Exam: Full ROM, Normal Capillary Refill, Normal Inspection. absent : Joint Swelling, Pedal Edema Additional comments: Dorsal Right Foot Ulcer. clean , no signs of infection - Back Exam Back Exam: NORMAL INSPECTION - Neurological Exam Neurological Exam: Alert, Awake, CN II-XII Intact - Psychiatric Exam Psychiatric exam: Depressed, Flat Affect - Skin Skin Exam: Dry, Intact, Normal Color, Warm Assessment and Plan - Assessment and Plan (Free Text) Assessment: 57 y/o male with unknown PMHx admitted on 11/29/17 for AMS, right hip cellulitis , multifocal pneumonia, influenza A, strep viridians bacteremia with findings of stroke on MRI - acute vs. 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 Patient was treated for bacteremia with IV abx. Patient is stable and awaiting state guardianship and future placement. Plan: HTN -BP Stable, continue to monitor -Continue Lisinopril, Amlodipine Anemia -microcytic anemia -low Iron, TIBC wnl -continue iron supplement -continue Colace, Miralax for constipation Colonic mass - CT A/P showing colonic mass and hepatic lesions - Patient is altered. no family present for consent - patient refused colonscopy Affective disorder - Continue Celexa Hepatic lesions -Using abd U/S: measuring up to 4.9cm and 3.8 cm. compared to 4.1cm and 3.1cm in . stable size -patient asymptomatic Altered mental status - Patient is at baseline -Continue ASA, lipitor Dorsal Right Foot Ulcer -clean wound. no signs of infection. no treatment required -continue wound care Diabetes mellitus type 2 - Continue ISS low. accuchecks -Continue Metformin Hx ETOH Abuse - Continue Thiamine, Multivitamin, Folic Acid Prophylaxis: -SCDs for DVT -continue delirium precautions As per social media analyst note: spoke with passenger service representative who advised that court is in agreement with guardianship. Placido Polo was appointed guardian, patient access was requested to change information in chart. Dental Treatment Coordinator also advised that the court is going to give an order to patient's bank to release five years of bank statements to placido polo. PA 4 and 5 placed in chart to be completed. will request a PAS for state. PA 4 and 5 formed filled and placed in chart. Sent by social media analyst. Waiting for response Case reviewed and plan discussed with Dr. Schumacher <Deanna Schumacher - Last Filed: 07/06/18 17:04> Objective - Vital Signs/Intake and Output Vital Signs (last 24 hours): Temp Pulse Resp BP Pulse Ox 97 F L 81 20 108/69 97 07/06/18 07:30 07/06/18 09:34 07/06/18 07:30 07/06/18 07:30 07/06/18 07:30 Intake and Output: 07/06/18 07/06/18 06:59 18:59 Intake Total 120 Balance 120 - Medications Medications: Current Medications Aspirin (Aspirin Chewable) 81 mg PO DAILY [facility] Last Admin: 07/06/18 09:33 Dose: 81 mg Citalopram Hydrobromide (Celexa) 10 mg PO DAILY [facility] Last Admin: 07/06/18 09:33 Dose: 10 mg Collagenase (Santyl) 0 gm TOP DAILY [facility] Last Admin: 07/06/18 09:35 Dose: 1 applic Insulin Human Lispro (Humalog Low) 0 units SC [facility] PRN Reason: Protocol Last Admin: 07/06/18 16:30 Dose: Not Given Lisinopril (Zestril) 10 mg PO DAILY [facility] Last Admin: 07/06/18 09:34 Dose: 10 mg Metformin HCl (Glucophage) 500 mg PO BID [facility] Last Admin: 07/06/18 09:33 Dose: 500 mg Pantoprazole Sodium (Protonix Ec Tab) 40 mg PO 0600 [facility] Last Admin: 07/06/18 05:33 Dose: 40 mg Thiamine HCl (Vitamin B1 Tab) 100 mg PO DAILY [facility] Last Admin: 07/06/18 09:34 Dose: 100 mg - Labs Labs: 06/21/18 06:00 06/21/18 06:00 PT 12.5 SECONDS (9.4-12.5) 12/09/17 10:00 INR 1.09 (0.93-1.08) H 12/09/17 10:00 APTT 28.3 Seconds (25.1-36.5) 11/30/17 05:30 Attending/Attestation - Attestation I have personally seen and examined this patient.: Yes I have fully participated in the care of the patient.: Yes I have reviewed all pertinent clinical information, including history, physical exam and plan: Yes Notes (Text): 07/06/18 17:04 Medical record note made by the resident after discussion with my direction and input after the patient was personally seen and examined by me. I have reviewed the chart and agree that the record accurately reflects by personal performance of the history, physical exam, data review, and medical decision-making, in the course for the patient. I have also personally directed the plan of care. 57 yrs old male , S/P sepsis due to strep viridans and coagulase negative bacteremia from right gluteal and back cellulitis, S/P treatment for multifocal HCAP on top of Influenza A infection and S/P treatment for Sammie infection of sacral area as well.His mental status has not improved and he is at his base line. Patient had advance dementia and has poor insight about his medical condition.Psychiatry does not has capacity to make decision as per Psychiatry . Patient is awaiting placement.
[2018-07-05] MEDS: Insulin Lispro (humaLOG) LOW Coverage SC SCH ×4 (08:04→21:38)
[2018-07-05] MEDS: Collagenase 250 Units/gm Ointment(30 gm) TOP SCH (09:43)
--- NOTE | 2018-07-05 18:47 | PN ---
DATE: 07/05/2018 SUBJECTIVE: The patient is in bed, in no acute distress, nontoxic. PHYSICAL EXAMINATION: VITAL SIGNS: On exam, temperature is 98, blood pressure is 102/60, respiratory rate of 18. HEENT: Examination of HEENT is unremarkable. NECK: Supple. LUNGS: Have decreased breath sounds. HEART: Normal S1, S2. ABDOMEN: Soft. LABORATORY DATA: Laboratory examination reveals a white count of 9.4, hemoglobin of 8, platelets of 461. Chemistries are noted. Review of orders is noted. ASSESSMENT AND PLAN: A 57-year-old male with status post systemic inflammatory response syndrome, status post sepsis with Streptococcus viridans and coagulase-negative Staphylococcus bacteremia, liver mass on ultrasound, status post multifocal healthcare-associated pneumonia in the phase of influenza. Currently, now off of antibiotics. The patient is at risk for developing nosocomial infections. Daniel Torres MD
[2018-07-06] MEDS: Pantoprazole 40 mg EC Tab PO SCH (05:33)
--- NOTE | 2018-07-06 06:19 | CP.PCM.PN ---
<Dave Gutierrez - Last Filed: 07/06/18 17:00> Subjective - Date & Time of Evaluation Date of Evaluation: 07/06/18 Time of Evaluation: 05:48 - Subjective Subjective: Dave Gutierrez DO PGY-1, Internal Medicine Resident. Hospitalist Progress Note Patient seen and examined at bedside. Patient is resting in bed. No acute events overnight. Tolerating his diet with regular bowel movements. Patient denied SOB, CP, palpitations, headache, fever. Objective - Vital Signs/Intake and Output Vital Signs (last 24 hours): Temp Pulse Resp BP Pulse Ox 98.6 F 89 20 102/60 95 07/05/18 16:47 07/05/18 16:47 07/05/18 16:47 07/05/18 16:47 07/05/18 16:47 Intake and Output: 07/05/18 07/06/18 18:59 06:59 Intake Total 1500 Balance 1500 - Medications Medications: Current Medications Aspirin (Aspirin Chewable) 81 mg PO DAILY [facility] Last Admin: 07/05/18 09:42 Dose: 81 mg Citalopram Hydrobromide (Celexa) 10 mg PO DAILY [facility] Last Admin: 07/05/18 09:42 Dose: 10 mg Collagenase (Santyl) 0 gm TOP DAILY [facility] Last Admin: 07/05/18 09:43 Dose: 1 applic Insulin Human Lispro (Humalog Low) 0 units SC [facility] PRN Reason: Protocol Last Admin: 07/05/18 21:38 Dose: Not Given Lisinopril (Zestril) 10 mg PO DAILY [facility] Last Admin: 07/05/18 09:42 Dose: 10 mg Metformin HCl (Glucophage) 500 mg PO BID [facility] Last Admin: 07/05/18 17:06 Dose: 500 mg Pantoprazole Sodium (Protonix Ec Tab) 40 mg PO 0600 [facility] Last Admin: 07/06/18 05:33 Dose: 40 mg Thiamine HCl (Vitamin B1 Tab) 100 mg PO DAILY [facility] Last Admin: 07/05/18 09:42 Dose: 100 mg - Labs Labs: 06/21/18 06:00 06/21/18 06:00 PT 12.5 SECONDS (9.4-12.5) 12/09/17 10:00 INR 1.09 (0.93-1.08) H 12/09/17 10:00 APTT 28.3 Seconds (25.1-36.5) 11/30/17 05:30 - Additional Findings Additional findings: - Constitutional Appears: Well - Head Exam Head Exam: ATRAUMATIC, NORMAL INSPECTION, NORMOCEPHALIC - Eye Exam Eye Exam: EOMI, Normal appearance, PERRL Pupil Exam: NORMAL ACCOMODATION, PERRL - ENT Exam ENT Exam: Mucous Membranes Moist, Normal Exam - Neck Exam Neck Exam: Full ROM, Normal Inspection. absent: Lymphadenopathy - Respiratory Exam Respiratory Exam: Clear to Ausculation Bilateral, NORMAL BREATHING PATTERN - Cardiovascular Exam Cardiovascular Exam: REGULAR RHYTHM, +S1, +S2 - GI/Abdominal Exam GI & Abdominal Exam: Soft, Normal Bowel Sounds. absent: Tenderness - Extremities Exam Extremities Exam: Full ROM, Normal Capillary Refill, Normal Inspection. absent : Joint Swelling, Pedal Edema Additional comments: Dorsal Right Foot Ulcer. clean , no signs of infection - Back Exam Back Exam: NORMAL INSPECTION - Neurological Exam Neurological Exam: Alert, Awake, CN II-XII Intact - Psychiatric Exam Psychiatric exam: Depressed, Flat Affect - Skin Skin Exam: Dry, Intact, Normal Color, Warm Assessment and Plan - Assessment and Plan (Free Text) Assessment: 57 y/o male with unknown PMHx admitted on 11/29/17 for AMS, right hip cellulitis , multifocal pneumonia, influenza A, strep viridians bacteremia with findings of stroke on MRI - acute vs. 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 Patient was treated for bacteremia with IV abx. Patient is stable, state guardianship approved. Patient awaiting future placement. Plan: HTN -BP Stable, continue to monitor -Continue Lisinopril, Amlodipine Anemia -microcytic anemia -low Iron, TIBC wnl -continue iron supplement -continue Colace, Miralax for constipation Colonic mass - CT A/P showing colonic mass and hepatic lesions - Patient is altered. no family present for consent - patient refused colonscopy Affective disorder - Continue Celexa Hepatic lesions -Using abd U/S: measuring up to 4.9cm and 3.8 cm. compared to 4.1cm and 3.1cm in . stable size -patient asymptomatic Altered mental status - Patient is at baseline -Continue ASA, lipitor Dorsal Right Foot Ulcer -clean wound. no signs of infection. no treatment required -continue wound care Diabetes mellitus type 2 - Continue ISS low. accuchecks -Continue Metformin Hx ETOH Abuse - Continue Thiamine, Multivitamin, Folic Acid Prophylaxis: -SCDs for DVT -continue delirium precautions As per social welfare research worker note: spoke with boilermaker apprentice who advised that court is in agreement with guardianship. Placido Polo was appointed guardian, patient access was requested to change information in chart. Olericulture Professor also advised that the court is going to give an order to patient's bank to release five years of bank statements to placido polo. PA 4 and 5 placed in chart to be completed. will request a PAS for state. PA 4 and 5 formed filled and placed in chart. Sent by social welfare research worker. Waiting for response Case reviewed and plan discussed with Dr. Schumacher <Deanna Schumacher - Last Filed: 07/06/18 17:05> Objective - Vital Signs/Intake and Output Vital Signs (last 24 hours): Temp Pulse Resp BP Pulse Ox 97 F L 81 20 108/69 97 07/06/18 07:30 07/06/18 09:34 07/06/18 07:30 07/06/18 07:30 07/06/18 07:30 Intake and Output: 07/06/18 07/06/18 06:59 18:59 Intake Total 120 Balance 120 - Medications Medications: Current Medications Aspirin (Aspirin Chewable) 81 mg PO DAILY [facility] Last Admin: 07/06/18 09:33 Dose: 81 mg Citalopram Hydrobromide (Celexa) 10 mg PO DAILY [facility] Last Admin: 07/06/18 09:33 Dose: 10 mg Collagenase (Santyl) 0 gm TOP DAILY [facility] Last Admin: 07/06/18 09:35 Dose: 1 applic Insulin Human Lispro (Humalog Low) 0 units SC [facility] PRN Reason: Protocol Last Admin: 07/06/18 16:30 Dose: Not Given Lisinopril (Zestril) 10 mg PO DAILY [facility] Last Admin: 07/06/18 09:34 Dose: 10 mg Metformin HCl (Glucophage) 500 mg PO BID [facility] Last Admin: 07/06/18 09:33 Dose: 500 mg Pantoprazole Sodium (Protonix Ec Tab) 40 mg PO 0600 [facility] Last Admin: 07/06/18 05:33 Dose: 40 mg Thiamine HCl (Vitamin B1 Tab) 100 mg PO DAILY [facility] Last Admin: 07/06/18 09:34 Dose: 100 mg - Labs Labs: 06/21/18 06:00 06/21/18 06:00 PT 12.5 SECONDS (9.4-12.5) 12/09/17 10:00 INR 1.09 (0.93-1.08) H 12/09/17 10:00 APTT 28.3 Seconds (25.1-36.5) 11/30/17 05:30 Attending/Attestation - Attestation I have personally seen and examined this patient.: Yes I have fully participated in the care of the patient.: Yes I have reviewed all pertinent clinical information, including history, physical exam and plan: Yes Notes (Text): 07/06/18 17:05 Medical record note made by the resident after discussion with my direction and input after the patient was personally seen and examined by me. I have reviewed the chart and agree that the record accurately reflects by personal performance of the history, physical exam, data review, and medical decision-making, in the course for the patient. I have also personally directed the plan of care.
[2018-07-06] MEDS: Insulin Lispro (humaLOG) LOW Coverage SC SCH ×4 (07:57→21:33)
[2018-07-06] MEDS: Collagenase 250 Units/gm Ointment(30 gm) TOP SCH (09:35)
--- NOTE | 2018-07-06 10:47 | CP.PCM.PN ---
Subjective - Date & Time of Evaluation Date of Evaluation: 07/06/18 Time of Evaluation: 09:40 - Subjective Subjective: Comfortable in bed, afebrile. Objective - Vital Signs/Intake and Output Vital Signs (last 24 hours): Temp Pulse Resp BP Pulse Ox 97 F L 81 20 108/69 97 07/06/18 07:30 07/06/18 09:34 07/06/18 07:30 07/06/18 07:30 07/06/18 07:30 Intake and Output: 07/06/18 07/06/18 06:59 18:59 Intake Total 120 Balance 120 - Medications Medications: Current Medications Aspirin (Aspirin Chewable) 81 mg PO DAILY [facility] Last Admin: 07/06/18 09:33 Dose: 81 mg Citalopram Hydrobromide (Celexa) 10 mg PO DAILY [facility] Last Admin: 07/06/18 09:33 Dose: 10 mg Collagenase (Santyl) 0 gm TOP DAILY [facility] Last Admin: 07/06/18 09:35 Dose: 1 applic Insulin Human Lispro (Humalog Low) 0 units SC [facility] PRN Reason: Protocol Last Admin: 07/06/18 07:57 Dose: 1 units Lisinopril (Zestril) 10 mg PO DAILY [facility] Last Admin: 07/06/18 09:34 Dose: 10 mg Metformin HCl (Glucophage) 500 mg PO BID [facility] Last Admin: 07/06/18 09:33 Dose: 500 mg Pantoprazole Sodium (Protonix Ec Tab) 40 mg PO 0600 [facility] Last Admin: 07/06/18 05:33 Dose: 40 mg Thiamine HCl (Vitamin B1 Tab) 100 mg PO DAILY [facility] Last Admin: 07/06/18 09:34 Dose: 100 mg - Labs Labs: 06/21/18 06:00 06/21/18 06:00 PT 12.5 SECONDS (9.4-12.5) 12/09/17 10:00 INR 1.09 (0.93-1.08) H 12/09/17 10:00 APTT 28.3 Seconds (25.1-36.5) 11/30/17 05:30 - Constitutional Appears: Chronically Ill - Head Exam Head Exam: NORMAL INSPECTION - Respiratory Exam Respiratory Exam: Decreased Breath Sounds - Cardiovascular Exam Cardiovascular Exam: +S1, +S2 - GI/Abdominal Exam GI & Abdominal Exam: Soft. absent: Tenderness Assessment and Plan - Assessment and Plan (Free Text) Plan: Assessment S/P systemic inflammatory response syndrome, with no evidence of sepsis or infection, resolved S/P sepsis due to strep viridans and CoNS bacteremia from right gluteal and back cellulitis liver masses noted on ultrasound S/P multifocal HCAP on top of Influenza A infection S/P Sammie infection of sacral area as well peripheral vascular disease Plan continue to monitor clinically off antibiotics since he is at risk for healthcare-associated infections liver masses noted on ultrasound abdomen - plan as per medical team
[2018-07-07] MEDS: Pantoprazole 40 mg EC Tab PO SCH (05:22)
--- NOTE | 2018-07-07 06:38 | CP.PCM.PN ---
<Dave Gutierrez - Last Filed: 07/07/18 12:11> Subjective - Date & Time of Evaluation Date of Evaluation: 07/07/18 Time of Evaluation: 06:02 - Subjective Subjective: Dave Gutierrez DO PGY-1, Internal Medicine Resident. Hospitalist Progress Note Patient seen and examined at bedside. Patient is resting in bed, awake and oriented. No acute events overnight. Tolerating his diet with regular bowel movements. Patient denied SOB, CP, palpitations, headache, fever. Objective - Vital Signs/Intake and Output Vital Signs (last 24 hours): Temp Pulse Resp BP Pulse Ox 97.7 F 85 20 105/66 95 07/06/18 17:47 07/06/18 17:47 07/06/18 17:47 07/06/18 17:47 07/06/18 17:47 Intake and Output: 07/06/18 07/07/18 18:59 06:59 Intake Total 1380 Output Total 0 Balance 1380 - Medications Medications: Current Medications Aspirin (Aspirin Chewable) 81 mg PO DAILY [facility] Last Admin: 07/06/18 09:33 Dose: 81 mg Citalopram Hydrobromide (Celexa) 10 mg PO DAILY [facility] Last Admin: 07/06/18 09:33 Dose: 10 mg Collagenase (Santyl) 0 gm TOP DAILY [facility] Last Admin: 07/06/18 09:35 Dose: 1 applic Insulin Human Lispro (Humalog Low) 0 units SC [facility] PRN Reason: Protocol Last Admin: 07/06/18 21:33 Dose: Not Given Lisinopril (Zestril) 10 mg PO DAILY [facility] Last Admin: 07/06/18 09:34 Dose: 10 mg Metformin HCl (Glucophage) 500 mg PO BID [facility] Last Admin: 07/06/18 17:23 Dose: 500 mg Pantoprazole Sodium (Protonix Ec Tab) 40 mg PO 0600 [facility] Last Admin: 07/07/18 05:22 Dose: 40 mg Thiamine HCl (Vitamin B1 Tab) 100 mg PO DAILY [facility] Last Admin: 07/06/18 09:34 Dose: 100 mg - Labs Labs: 06/21/18 06:00 06/21/18 06:00 PT 12.5 SECONDS (9.4-12.5) 12/09/17 10:00 INR 1.09 (0.93-1.08) H 12/09/17 10:00 APTT 28.3 Seconds (25.1-36.5) 11/30/17 05:30 - Additional Findings Additional findings: - Constitutional Appears: Well - Head Exam Head Exam: ATRAUMATIC, NORMAL INSPECTION, NORMOCEPHALIC - Eye Exam Eye Exam: EOMI, Normal appearance, PERRL Pupil Exam: NORMAL ACCOMODATION, PERRL - ENT Exam ENT Exam: Mucous Membranes Moist, Normal Exam - Neck Exam Neck Exam: Full ROM, Normal Inspection. absent: Lymphadenopathy - Respiratory Exam Respiratory Exam: Clear to Ausculation Bilateral, NORMAL BREATHING PATTERN - Cardiovascular Exam Cardiovascular Exam: REGULAR RHYTHM, +S1, +S2 - GI/Abdominal Exam GI & Abdominal Exam: Soft, Normal Bowel Sounds. absent: Tenderness - Extremities Exam Extremities Exam: Full ROM, Normal Capillary Refill, Normal Inspection. absent : Joint Swelling, Pedal Edema Additional comments: Dorsal Right Foot Ulcer. clean , no signs of infection - Back Exam Back Exam: NORMAL INSPECTION - Neurological Exam Neurological Exam: Alert, Awake, CN II-XII Intact - Psychiatric Exam Psychiatric exam: Depressed, Flat Affect - Skin Skin Exam: Dry, Intact, Normal Color, Warm Assessment and Plan - Assessment and Plan (Free Text) Assessment: 57 y/o male with unknown PMHx admitted on 11/29/17 for AMS, right hip cellulitis , multifocal pneumonia, influenza A, strep viridians bacteremia with findings of stroke on MRI - acute vs. 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 Patient was treated for bacteremia with IV abx. Patient is stable, state guardianship approved. Patient awaiting future placement. Plan: HTN -BP Stable, continue to monitor -Continue Lisinopril, Amlodipine Anemia -microcytic anemia -low Iron, TIBC wnl -continue iron supplement -continue Colace, Miralax for constipation Colonic mass - CT A/P showing colonic mass and hepatic lesions - Patient is altered. no family present for consent - patient refused colonscopy Affective disorder - Continue Celexa Hepatic lesions -Using abd U/S: measuring up to 4.9cm and 3.8 cm. compared to 4.1cm and 3.1cm in . stable size -patient asymptomatic Altered mental status - Patient is at baseline -Continue ASA, lipitor Dorsal Right Foot Ulcer -clean wound. no signs of infection. no treatment required -continue wound care Diabetes mellitus type 2 - Continue ISS low. accuchecks -Continue Metformin Hx ETOH Abuse - Continue Thiamine, Multivitamin, Folic Acid Prophylaxis: -SCDs for DVT -continue delirium precautions As per social work case manager note: spoke with plastic eye technician who advised that court is in agreement with guardianship. Placido Polo was appointed guardian, patient access was requested to change information in chart. Women Specialist also advised that the court is going to give an order to patient's bank to release five years of bank statements to placido polo. PA 4 and 5 placed in chart to be completed. will request a PAS for state. PA 4 and 5 formed filled and placed in chart. Sent by social work case manager. Waiting for response. Further communication through social work case manager Case reviewed and plan discussed with Dr. Schumacher <Deanna Schumacher - Last Filed: 07/08/18 13:56> Objective - Vital Signs/Intake and Output Vital Signs (last 24 hours): Temp Pulse Resp BP Pulse Ox 97.9 F 76 20 110/72 98 07/08/18 06:00 07/08/18 09:44 07/08/18 06:00 07/08/18 09:44 07/08/18 06:00 - Medications Medications: Current Medications Aspirin (Aspirin Chewable) 81 mg PO DAILY [facility] Last Admin: 07/08/18 09:43 Dose: 81 mg Citalopram Hydrobromide (Celexa) 10 mg PO DAILY [facility] Last Admin: 07/08/18 09:43 Dose: 10 mg Collagenase (Santyl) 0 gm TOP DAILY [facility] Last Admin: 07/08/18 09:44 Dose: Not Given Insulin Human Lispro (Humalog Low) 0 units SC [facility] PRN Reason: Protocol Last Admin: 07/08/18 11:36 Dose: Not Given Lisinopril (Zestril) 10 mg PO DAILY [facility] Last Admin: 07/08/18 09:44 Dose: 10 mg Metformin HCl (Glucophage) 500 mg PO BID [facility] Last Admin: 07/08/18 09:43 Dose: 500 mg Pantoprazole Sodium (Protonix Ec Tab) 40 mg PO 0600 [facility] Last Admin: 07/08/18 06:31 Dose: 40 mg Thiamine HCl (Vitamin B1 Tab) 100 mg PO DAILY [facility] Last Admin: 07/08/18 09:43 Dose: 100 mg - Labs Labs: 06/21/18 06:00 06/21/18 06:00 PT 12.5 SECONDS (9.4-12.5) 12/09/17 10:00 INR 1.09 (0.93-1.08) H 12/09/17 10:00 APTT 28.3 Seconds (25.1-36.5) 11/30/17 05:30 Attending/Attestation - Attestation I have personally seen and examined this patient.: Yes I have fully participated in the care of the patient.: Yes I have reviewed all pertinent clinical information, including history, physical exam and plan: Yes Notes (Text): 07/08/18 13:55 Medical record note made by the resident after discussion with my direction and input after the patient was personally seen and examined by me. I have reviewed the chart and agree that the record accurately reflects by personal performance of the history, physical exam, data review, and medical decision-making, in the course for the patient. I have also personally directed the plan of care. 57 yrs old male , S/P sepsis due to strep viridans and coagulase negative bacteremia from right gluteal and back cellulitis, S/P treatment for multifocal HCAP on top of Influenza A infection and S/P treatment for Sammie infection of sacral area as well.His mental status has not improved and he is at his base line. Patient had advance dementia and has poor insight about his medical condition.Psychiatry does not has capacity to make decision as per Psychiatry Patient is awaiting placement. Prognosis is guarded.
[2018-07-07] MEDS: Insulin Lispro (humaLOG) LOW Coverage SC SCH ×4 (08:02→22:00)
--- NOTE | 2018-07-07 11:07 | CP.PCM.PN ---
Subjective - Date & Time of Evaluation Date of Evaluation: 07/07/18 Time of Evaluation: 09:40 - Subjective Subjective: No fevers, not in distress, comfortable in bed. Objective - Vital Signs/Intake and Output Vital Signs (last 24 hours): Temp Pulse Resp BP Pulse Ox 97.7 F 85 20 105/66 95 07/06/18 17:47 07/06/18 17:47 07/06/18 17:47 07/06/18 17:47 07/06/18 17:47 - Medications Medications: Current Medications Aspirin (Aspirin Chewable) 81 mg PO DAILY [facility] Last Admin: 07/06/18 09:33 Dose: 81 mg Citalopram Hydrobromide (Celexa) 10 mg PO DAILY [facility] Last Admin: 07/06/18 09:33 Dose: 10 mg Collagenase (Santyl) 0 gm TOP DAILY [facility] Last Admin: 07/06/18 09:35 Dose: 1 applic Insulin Human Lispro (Humalog Low) 0 units SC ACHS [facility] PRN Reason: Protocol Last Admin: 07/06/18 21:33 Dose: Not Given Lisinopril (Zestril) 10 mg PO DAILY [facility] Last Admin: 07/06/18 09:34 Dose: 10 mg Metformin HCl (Glucophage) 500 mg PO BID [facility] Last Admin: 07/06/18 17:23 Dose: 500 mg Pantoprazole Sodium (Protonix Ec Tab) 40 mg PO 0600 [facility] Last Admin: 07/07/18 05:22 Dose: 40 mg Thiamine HCl (Vitamin B1 Tab) 100 mg PO DAILY [facility] Last Admin: 07/06/18 09:34 Dose: 100 mg - Labs Labs: 06/21/18 06:00 06/21/18 06:00 PT 12.5 SECONDS (9.4-12.5) 12/09/17 10:00 INR 1.09 (0.93-1.08) H 12/09/17 10:00 APTT 28.3 Seconds (25.1-36.5) 11/30/17 05:30 - Constitutional Appears: Chronically Ill - Head Exam Head Exam: NORMAL INSPECTION - Neck Exam Neck Exam: absent: Meningismus - Respiratory Exam Respiratory Exam: Decreased Breath Sounds - Cardiovascular Exam Cardiovascular Exam: +S1, +S2 - GI/Abdominal Exam GI & Abdominal Exam: Soft. absent: Tenderness Assessment and Plan - Assessment and Plan (Free Text) Plan: Assessment S/P systemic inflammatory response syndrome, with no evidence of sepsis or infection, resolved S/P sepsis due to strep viridans and CoNS bacteremia from right gluteal and back cellulitis liver masses noted on ultrasound S/P multifocal HCAP on top of Influenza A infection S/P Sammie infection of sacral area as well peripheral vascular disease Plan continue to monitor clinically off antibiotics since he is at risk for nosocomial infections liver masses noted on ultrasound abdomen - plan as per medical team
[2018-07-07] MEDS: Collagenase 250 Units/gm Ointment(30 gm) TOP SCH (17:22)
--- NOTE | 2018-07-08 06:04 | CP.PCM.PN ---
<Dave Gutierrez - Last Filed: 07/08/18 13:05> Subjective - Date & Time of Evaluation Date of Evaluation: 07/08/18 Time of Evaluation: 05:39 - Subjective Subjective: Dave Gutierrez DO PGY-1, Internal Medicine Resident. Hospitalist Progress Note Patient seen and examined at bedside. Patient is resting in bed, awake and oriented. No acute events overnight. Tolerating his diet with regular bowel movements. Patient denied SOB, CP, palpitations, headache, fever. Patient still awaiting placement Objective - Vital Signs/Intake and Output Vital Signs (last 24 hours): Temp Pulse Resp BP Pulse Ox 97.2 F L 80 20 101/61 98 07/07/18 18:00 07/07/18 18:00 07/07/18 18:00 07/07/18 18:00 07/07/18 18:00 Intake and Output: 07/07/18 07/08/18 18:59 06:59 Intake Total 1860 Balance 1860 - Medications Medications: Current Medications Aspirin (Aspirin Chewable) 81 mg PO DAILY [facility] Last Admin: 07/07/18 09:47 Dose: 81 mg Citalopram Hydrobromide (Celexa) 10 mg PO DAILY [facility] Last Admin: 07/07/18 09:47 Dose: 10 mg Collagenase (Santyl) 0 gm TOP DAILY [facility] Last Admin: 07/07/18 17:22 Dose: Not Given Insulin Human Lispro (Humalog Low) 0 units SC ACHS [facility] PRN Reason: Protocol Last Admin: 07/07/18 17:21 Dose: Not Given Lisinopril (Zestril) 10 mg PO DAILY [facility] Last Admin: 07/07/18 09:48 Dose: 10 mg Metformin HCl (Glucophage) 500 mg PO BID [facility] Last Admin: 07/07/18 17:21 Dose: 500 mg Pantoprazole Sodium (Protonix Ec Tab) 40 mg PO 0600 [facility] Last Admin: 07/07/18 05:22 Dose: 40 mg Thiamine HCl (Vitamin B1 Tab) 100 mg PO DAILY [facility] Last Admin: 07/07/18 09:48 Dose: 100 mg - Labs Labs: 06/21/18 06:00 06/21/18 06:00 PT 12.5 SECONDS (9.4-12.5) 12/09/17 10:00 INR 1.09 (0.93-1.08) H 12/09/17 10:00 APTT 28.3 Seconds (25.1-36.5) 11/30/17 05:30 - Additional Findings Additional findings: - Constitutional Appears: Well - Head Exam Head Exam: ATRAUMATIC, NORMAL INSPECTION, NORMOCEPHALIC - Eye Exam Eye Exam: EOMI, Normal appearance, PERRL Pupil Exam: NORMAL ACCOMODATION, PERRL - ENT Exam ENT Exam: Mucous Membranes Moist, Normal Exam - Neck Exam Neck Exam: Full ROM, Normal Inspection. absent: Lymphadenopathy - Respiratory Exam Respiratory Exam: Clear to Ausculation Bilateral, NORMAL BREATHING PATTERN - Cardiovascular Exam Cardiovascular Exam: REGULAR RHYTHM, +S1, +S2 - GI/Abdominal Exam GI & Abdominal Exam: Soft, Normal Bowel Sounds. absent: Tenderness - Extremities Exam Extremities Exam: Full ROM, Normal Capillary Refill, Normal Inspection. absent : Joint Swelling, Pedal Edema Additional comments: Dorsal Right Foot Ulcer. clean , no signs of infection - Back Exam Back Exam: NORMAL INSPECTION - Neurological Exam Neurological Exam: Alert, Awake, CN II-XII Intact - Psychiatric Exam Psychiatric exam: Depressed, Flat Affect - Skin Skin Exam: Dry, Intact, Normal Color, Warm Assessment and Plan - Assessment and Plan (Free Text) Assessment: 57 y/o male with unknown PMHx admitted on 11/29/17 for AMS, right hip cellulitis , multifocal pneumonia, influenza A, strep viridians bacteremia with findings of stroke on MRI - acute vs. 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 Patient was treated for bacteremia with IV abx. Patient is stable, state guardianship approved. Patient awaiting future placement. Plan: HTN -BP Stable, continue to monitor -Continue Lisinopril, Amlodipine Anemia -microcytic anemia -low Iron, TIBC wnl -continue iron supplement -continue Colace, Miralax for constipation Colonic mass - CT A/P showing colonic mass and hepatic lesions - Patient is altered. no family present for consent - patient refused colonscopy Affective disorder - Continue Celexa Hepatic lesions -Using abd U/S: measuring up to 4.9cm and 3.8 cm. compared to 4.1cm and 3.1cm in . stable size -patient asymptomatic Altered mental status - Patient is at baseline -Continue ASA, lipitor Dorsal Right Foot Ulcer -clean wound. no signs of infection. no treatment required -continue wound care Diabetes mellitus type 2 - Continue ISS low. accuchecks -Continue Metformin Hx ETOH Abuse - Continue Thiamine, Multivitamin, Folic Acid Prophylaxis: -SCDs for DVT -continue delirium precautions As per social services director note: spoke with marketing financial analyst who advised that court is in agreement with guardianship. Placido Polo was appointed guardian, patient access was requested to change information in chart. Power Grader Operator also advised that the court is going to give an order to patient's bank to release five years of bank statements to placido polo. PA 4 and 5 placed in chart to be completed. will request a PAS for state. PA 4 and 5 formed filled and placed in chart. Sent by social services director. Waiting for response. Further communication through social services director Case reviewed and plan discussed with Dr. Schumacher <Deanna Schumacher - Last Filed: 07/08/18 13:57> Objective - Vital Signs/Intake and Output Vital Signs (last 24 hours): Temp Pulse Resp BP Pulse Ox 97.9 F 76 20 110/72 98 07/08/18 06:00 07/08/18 09:44 07/08/18 06:00 07/08/18 09:44 07/08/18 06:00 - Medications Medications: Current Medications Aspirin (Aspirin Chewable) 81 mg PO DAILY [facility] Last Admin: 07/08/18 09:43 Dose: 81 mg Citalopram Hydrobromide (Celexa) 10 mg PO DAILY [facility] Last Admin: 07/08/18 09:43 Dose: 10 mg Collagenase (Santyl) 0 gm TOP DAILY [facility] Last Admin: 07/08/18 09:44 Dose: Not Given Insulin Human Lispro (Humalog Low) 0 units SC [facility] PRN Reason: Protocol Last Admin: 07/08/18 11:36 Dose: Not Given Lisinopril (Zestril) 10 mg PO DAILY [facility] Last Admin: 07/08/18 09:44 Dose: 10 mg Metformin HCl (Glucophage) 500 mg PO BID [facility] Last Admin: 07/08/18 09:43 Dose: 500 mg Pantoprazole Sodium (Protonix Ec Tab) 40 mg PO 0600 [facility] Last Admin: 07/08/18 06:31 Dose: 40 mg Thiamine HCl (Vitamin B1 Tab) 100 mg PO DAILY [facility] Last Admin: 07/08/18 09:43 Dose: 100 mg - Labs Labs: 06/21/18 06:00 06/21/18 06:00 PT 12.5 SECONDS (9.4-12.5) 12/09/17 10:00 INR 1.09 (0.93-1.08) H 12/09/17 10:00 APTT 28.3 Seconds (25.1-36.5) 11/30/17 05:30 Attending/Attestation - Attestation I have personally seen and examined this patient.: Yes I have fully participated in the care of the patient.: Yes I have reviewed all pertinent clinical information, including history, physical exam and plan: Yes Notes (Text): 07/08/18 13:57 Medical record note made by the resident after discussion with my direction and input after the patient was personally seen and examined by me. I have reviewed the chart and agree that the record accurately reflects by personal performance of the history, physical exam, data review, and medical decision-making, in the course for the patient. I have also personally directed the plan of care.
[2018-07-08] MEDS: Pantoprazole 40 mg EC Tab PO SCH (06:31)
[2018-07-08] MEDS: Insulin Lispro (humaLOG) LOW Coverage SC SCH ×4 (07:37→21:08)
[2018-07-08] MEDS: Collagenase 250 Units/gm Ointment(30 gm) TOP SCH (09:44)
--- NOTE | 2018-07-08 14:13 | CP.PCM.PN ---
Subjective - Date & Time of Evaluation Date of Evaluation: 07/08/18 Time of Evaluation: 10:25 - Subjective Subjective: Comfortable in bed, no fevers, not in distress. Objective - Vital Signs/Intake and Output Vital Signs (last 24 hours): Temp Pulse Resp BP Pulse Ox 97.9 F 76 20 110/72 98 07/08/18 06:00 07/08/18 06:00 07/08/18 06:00 07/08/18 06:00 07/08/18 06:00 - Medications Medications: Current Medications Aspirin (Aspirin Chewable) 81 mg PO DAILY [facility] Last Admin: 07/07/18 09:47 Dose: 81 mg Citalopram Hydrobromide (Celexa) 10 mg PO DAILY [facility] Last Admin: 07/07/18 09:47 Dose: 10 mg Collagenase (Santyl) 0 gm TOP DAILY [facility] Last Admin: 07/07/18 17:22 Dose: Not Given Insulin Human Lispro (Humalog Low) 0 units SC ACHS [facility] PRN Reason: Protocol Last Admin: 07/08/18 07:37 Dose: Not Given Lisinopril (Zestril) 10 mg PO DAILY [facility] Last Admin: 07/07/18 09:48 Dose: 10 mg Metformin HCl (Glucophage) 500 mg PO BID [facility] Last Admin: 07/07/18 17:21 Dose: 500 mg Pantoprazole Sodium (Protonix Ec Tab) 40 mg PO 0600 [facility] Last Admin: 07/08/18 06:31 Dose: 40 mg Thiamine HCl (Vitamin B1 Tab) 100 mg PO DAILY [facility] Last Admin: 07/07/18 09:48 Dose: 100 mg - Labs Labs: 06/21/18 06:00 06/21/18 06:00 PT 12.5 SECONDS (9.4-12.5) 12/09/17 10:00 INR 1.09 (0.93-1.08) H 12/09/17 10:00 APTT 28.3 Seconds (25.1-36.5) 11/30/17 05:30 - Constitutional Appears: Chronically Ill - Head Exam Head Exam: NORMAL INSPECTION - Respiratory Exam Respiratory Exam: Decreased Breath Sounds - Cardiovascular Exam Cardiovascular Exam: +S1, +S2 - GI/Abdominal Exam GI & Abdominal Exam: Soft. absent: Tenderness Assessment and Plan - Assessment and Plan (Free Text) Plan: Assessment S/P systemic inflammatory response syndrome, with no evidence of sepsis or infection, resolved S/P sepsis due to strep viridans and CoNS bacteremia from right gluteal and back cellulitis liver masses noted on ultrasound S/P multifocal HCAP on top of Influenza A infection S/P Sammie infection of sacral area as well peripheral vascular disease Plan continue to monitor clinically off antibiotics since he is at risk for hospital- acquired infections liver masses noted on ultrasound abdomen - plan as per medical team
[2018-07-09] MEDS: Pantoprazole 40 mg EC Tab PO SCH (05:03)
[2018-07-09] MEDS: Insulin Lispro (humaLOG) LOW Coverage SC SCH ×4 (08:33→21:23)
--- NOTE | 2018-07-09 14:05 | PN ---
DATE: 07/09/2018 SUBJECTIVE: The patient is in bed, seen earlier today in room 364. PHYSICAL EXAMINATION: VITAL SIGNS: On exam, temperature is 98, blood pressure is 115/60, respiratory rate 16. HEENT: Examination of HEENT is unremarkable. NECK: Supple. LUNGS: Have decreased breath sounds. HEART: Normal S1, S2. ABDOMEN: Soft, nontender. LABORATORY DATA: Laboratory examination reveals a white count of 9.4, hemoglobin of 8, platelets are 461. Chemistries are noted and creatinine is 0.5. ASSESSMENT AND PLAN: A 58-year-old male seen earlier today in 364, bed 2 with systemic inflammatory response syndrome, status post resolution, initially had sepsis due to streptococcus viridans and coagulase-negative staphylococcus bacteremia and right gluteal and back cellulitis, liver masses on ultrasound, status post multifocal healthcare-associated pneumonia and currently off of antibiotics, afebrile. The patient is at risk for developing nosocomial infections. Daniel Torres MD
--- NOTE | 2018-07-09 16:05 | CP.PCM.PN ---
<Jorge Luis Lopez - Last Filed: 07/09/18 16:38> Subjective - Date & Time of Evaluation Date of Evaluation: 07/09/18 Time of Evaluation: 07:30 - Subjective Subjective: Patient seen and examined at bedside in no acute distress. 12-point ROS obtained , otherwise neg as per patient. Objective - Vital Signs/Intake and Output Vital Signs (last 24 hours): Temp Pulse Resp BP Pulse Ox 97.9 F 78 20 115/68 94 L 07/09/18 08:02 07/09/18 09:45 07/09/18 08:02 07/09/18 09:45 07/09/18 08:02 - Medications Medications: Current Medications Aspirin (Aspirin Chewable) 81 mg PO DAILY [facility] Last Admin: 07/09/18 09:44 Dose: 81 mg Citalopram Hydrobromide (Celexa) 10 mg PO DAILY [facility] Last Admin: 07/09/18 09:44 Dose: 10 mg Collagenase (Santyl) 0 gm TOP DAILY [facility] Last Admin: 07/08/18 09:44 Dose: Not Given Insulin Human Lispro (Humalog Low) 0 units SC [facility] PRN Reason: Protocol Last Admin: 07/09/18 08:33 Dose: Not Given Lisinopril (Zestril) 10 mg PO DAILY [facility] Last Admin: 07/09/18 09:45 Dose: 10 mg Metformin HCl (Glucophage) 500 mg PO BID [facility] Last Admin: 07/09/18 09:45 Dose: 500 mg Pantoprazole Sodium (Protonix Ec Tab) 40 mg PO 0600 [facility] Last Admin: 07/09/18 05:03 Dose: 40 mg Thiamine HCl (Vitamin B1 Tab) 100 mg PO DAILY [facility] Last Admin: 07/09/18 09:44 Dose: 100 mg - Labs Labs: 06/21/18 06:00 06/21/18 06:00 PT 12.5 SECONDS (9.4-12.5) 12/09/17 10:00 INR 1.09 (0.93-1.08) H 12/09/17 10:00 APTT 28.3 Seconds (25.1-36.5) 11/30/17 05:30 - Constitutional Appears: Non-toxic - Head Exam Head Exam: ATRAUMATIC, NORMAL INSPECTION, NORMOCEPHALIC - Eye Exam Eye Exam: EOMI, Normal appearance - ENT Exam ENT Exam: Mucous Membranes Moist, Normal Exam - Neck Exam Neck Exam: Normal Inspection - Respiratory Exam Respiratory Exam: Clear to Ausculation Bilateral, NORMAL BREATHING PATTERN. absent: Wheezes - Cardiovascular Exam Cardiovascular Exam: REGULAR RHYTHM, +S1, +S2 - GI/Abdominal Exam GI & Abdominal Exam: Soft, Normal Bowel Sounds - Extremities Exam Extremities Exam: absent: Calf Tenderness - Back Exam Back Exam: NORMAL INSPECTION - Neurological Exam Neurological Exam: Alert, Awake, Oriented x3 - Psychiatric Exam Psychiatric exam: Normal Affect, Normal Mood - Skin Skin Exam: Intact, Normal Color, Warm Assessment and Plan - Assessment and Plan (Free Text) Assessment: 57 y/o male with unknown PMHx admitted on 11/29/17 for AMS, right hip cellulitis , multifocal pneumonia, influenza A, strep viridians bacteremia with findings of stroke on MRI - acute vs. 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 Patient was treated for bacteremia with IV abx. Patient is stable, state guardianship approved. Patient awaiting future placement. Plan: HTN -BP Stable, continue to monitor -Continue Lisinopril, Amlodipine Anemia -microcytic anemia -low Iron, TIBC wnl -continue iron supplement -continue Colace, Miralax for constipation Colonic mass - CT A/P showing colonic mass and hepatic lesions - Patient is altered. no family present for consent - patient refused colonscopy Affective disorder - Continue Celexa Hepatic lesions -Using abd U/S: measuring up to 4.9cm and 3.8 cm. compared to 4.1cm and 3.1cm in . stable size -patient asymptomatic Altered mental status - Patient is at baseline -Continue ASA, lipitor Dorsal Right Foot Ulcer -clean wound. no signs of infection. no treatment required -continue wound care Diabetes mellitus type 2 - Continue ISS low. accuchecks -Continue Metformin Hx ETOH Abuse - Continue Thiamine, Multivitamin, Folic Acid Prophylaxis: -SCDs for DVT -continue delirium precautions -Sit patient upward when eating to avoid aspiration As per health social work professor note: spoke with recreational therapy aide who advised that court is in agreement with guardianship. Placido Gaffney was appointed guardian, patient access was requested to change information in chart. Refractory Technician also advised that the court is going to give an order to patient's bank to release five years of bank statements to placido gaffney. PA 4 and 5 placed in chart to be completed. sw will request a PAS for state. PA 4 and 5 formed filled and placed in chart. Sent by health social work professor. Waiting for response. Further communication through health social work professor Case reviewed and plan discussed with Dr. Schumacher <Deanna Schumacher - Last Filed: 07/09/18 17:47> Objective - Vital Signs/Intake and Output Vital Signs (last 24 hours): Temp Pulse Resp BP Pulse Ox 97.9 F 88 20 107/65 97 07/09/18 16:35 07/09/18 16:35 07/09/18 16:35 07/09/18 16:35 07/09/18 16:35 - Medications Medications: Current Medications Aspirin (Aspirin Chewable) 81 mg PO DAILY [facility] Last Admin: 07/09/18 09:44 Dose: 81 mg Citalopram Hydrobromide (Celexa) 10 mg PO DAILY [facility] Last Admin: 07/09/18 09:44 Dose: 10 mg Collagenase (Santyl) 0 gm TOP DAILY [facility] Last Admin: 07/08/18 09:44 Dose: Not Given Insulin Human Lispro (Humalog Low) 0 units SC ACHS [facility] PRN Reason: Protocol Last Admin: 07/09/18 17:24 Dose: 1 units Lisinopril (Zestril) 10 mg PO DAILY [facility] Last Admin: 07/09/18 09:45 Dose: 10 mg Metformin HCl (Glucophage) 500 mg PO BID [facility] Last Admin: 07/09/18 17:25 Dose: 500 mg Pantoprazole Sodium (Protonix Ec Tab) 40 mg PO 0600 [facility] Last Admin: 07/09/18 05:03 Dose: 40 mg Thiamine HCl (Vitamin B1 Tab) 100 mg PO DAILY [facility] Last Admin: 07/09/18 09:44 Dose: 100 mg - Labs Labs: 06/21/18 06:00 06/21/18 06:00 PT 12.5 SECONDS (9.4-12.5) 12/09/17 10:00 INR 1.09 (0.93-1.08) H 12/09/17 10:00 APTT 28.3 Seconds (25.1-36.5) 11/30/17 05:30 Attending/Attestation - Attestation I have personally seen and examined this patient.: Yes I have fully participated in the care of the patient.: Yes I have reviewed all pertinent clinical information, including history, physical exam and plan: Yes Notes (Text): 07/09/18 17:46 Medical record note made by the resident after discussion with my direction and input after the patient was personally seen and examined by me. I have reviewed the chart and agree that the record accurately reflects by personal performance of the history, physical exam, data review, and medical decision-making, in the course for the patient. I have also personally directed the plan of care. 57 years old male , S/P sepsis due to strep viridans and Cogulase negative bacteremia from right gluteal and back cellulitis, S/P multifocal HCAP on top of Influenza A infection and S/P Sammie infection of sacral area as well. Mental status is at base line, Patient is awaiting for placement
[2018-07-10] MEDS: Pantoprazole 40 mg EC Tab PO SCH (05:10)
--- NOTE | 2018-07-10 14:47 | CP.PCM.PN ---
<Jorge Luis Lopez - Last Filed: 07/10/18 14:55> Subjective - Date & Time of Evaluation Date of Evaluation: 07/10/18 Time of Evaluation: 06:45 - Subjective Subjective: Patient was seen and examined at bedside. He offers no new complaints at this time. Objective - Vital Signs/Intake and Output Vital Signs (last 24 hours): Temp Pulse Resp BP Pulse Ox 97.6 F 82 20 105/73 96 07/10/18 09:01 07/10/18 11:35 07/10/18 09:01 07/10/18 11:35 07/10/18 09:01 Intake and Output: 07/10/18 07/10/18 06:59 18:59 Intake Total 180 Balance 180 - Medications Medications: Current Medications Aspirin (Aspirin Chewable) 81 mg PO DAILY [facility] Last Admin: 07/10/18 11:35 Dose: 81 mg Citalopram Hydrobromide (Celexa) 10 mg PO DAILY [facility] Last Admin: 07/10/18 11:35 Dose: 10 mg Collagenase (Santyl) 0 gm TOP DAILY [facility] Last Admin: 07/08/18 09:44 Dose: Not Given Insulin Human Lispro (Humalog Low) 0 units SC [facility] PRN Reason: Protocol Last Admin: 07/09/18 21:23 Dose: Not Given Lisinopril (Zestril) 10 mg PO DAILY [facility] Last Admin: 07/10/18 11:35 Dose: 10 mg Metformin HCl (Glucophage) 500 mg PO BID [facility] Last Admin: 07/10/18 11:35 Dose: 500 mg Pantoprazole Sodium (Protonix Ec Tab) 40 mg PO 0600 [facility] Last Admin: 07/10/18 05:10 Dose: 40 mg Thiamine HCl (Vitamin B1 Tab) 100 mg PO DAILY [facility] Last Admin: 07/10/18 11:37 Dose: 100 mg - Labs Labs: 06/21/18 06:00 06/21/18 06:00 PT 12.5 SECONDS (9.4-12.5) 12/09/17 10:00 INR 1.09 (0.93-1.08) H 12/09/17 10:00 APTT 28.3 Seconds (25.1-36.5) 11/30/17 05:30 - Head Exam Head Exam: ATRAUMATIC, NORMAL INSPECTION, NORMOCEPHALIC - Eye Exam Eye Exam: Normal appearance - ENT Exam ENT Exam: Mucous Membranes Moist - Neck Exam Neck Exam: Full ROM - Respiratory Exam Respiratory Exam: Clear to Ausculation Bilateral, NORMAL BREATHING PATTERN. absent: Rhonchi, Wheezes - Cardiovascular Exam Cardiovascular Exam: REGULAR RHYTHM, +S1, +S2 - GI/Abdominal Exam GI & Abdominal Exam: Soft, Normal Bowel Sounds - Extremities Exam Extremities Exam: Full ROM, Normal Inspection - Back Exam Back Exam: NORMAL INSPECTION - Neurological Exam Neurological Exam: Alert, Awake, Oriented x3 - Psychiatric Exam Psychiatric exam: Normal Affect, Normal Mood - Skin Skin Exam: Intact, Normal Color, Warm Assessment and Plan - Assessment and Plan (Free Text) Assessment: 57 y/o male with unknown PMHx admitted on 11/29/17 for AMS, right hip cellulitis , multifocal pneumonia, influenza A, strep viridians bacteremia with findings of stroke on MRI - acute vs. 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 Patient was treated for bacteremia with IV abx. Patient is stable, state guardianship approved. Patient awaiting future placement. Plan: HTN -BP Stable -Continue Lisinopril, Amlodipine; will adjust if needed Anemia -resolved Colonic mass - CT A/P showing colonic mass and hepatic lesions - patient refused colonscopy Affective disorder - Continue Celexa Altered mental status - Patient is at baseline -Continue ASA, lipitor Dorsal Right Foot Ulcer -clean wound. no signs of infection. no treatment required -continue wound care Diabetes mellitus type 2 - Continue ISS low - Accuchecks -Continue Metformin Hx ETOH Abuse - Continue Thiamine Prophylaxis: -SCDs for DVT -continue delirium precautions -Sit patient upward when eating to avoid aspiration As per social insurance specialist note: spoke with international sales representative who advised that court is in agreement with guardianship. Placido Gaffney was appointed guardian, patient access was requested to change information in chart. Mangle Operator Garments also advised that the court is going to give an order to patient's bank to release five years of bank statements to placido gaffney. PA 4 and 5 placed in chart to be completed. will request a PAS for state. PA 4 and 5 formed filled and placed in chart. Sent by social insurance specialist. Waiting for response. Further communication through social insurance specialist Case reviewed and plan discussed with Dr. Schumacher <Deanna Schumacher - Last Filed: 07/10/18 15:19> Objective - Vital Signs/Intake and Output Vital Signs (last 24 hours): Temp Pulse Resp BP Pulse Ox 97.6 F 82 20 105/73 96 07/10/18 09:01 07/10/18 11:35 07/10/18 09:01 07/10/18 11:35 07/10/18 09:01 Intake and Output: 07/10/18 07/10/18 06:59 18:59 Intake Total 180 Balance 180 - Medications Medications: Current Medications Aspirin (Aspirin Chewable) 81 mg PO DAILY [facility] Last Admin: 07/10/18 11:35 Dose: 81 mg Citalopram Hydrobromide (Celexa) 10 mg PO DAILY [facility] Last Admin: 07/10/18 11:35 Dose: 10 mg Collagenase (Santyl) 0 gm TOP DAILY [facility] Last Admin: 07/08/18 09:44 Dose: Not Given Insulin Human Lispro (Humalog Low) 0 units SC [facility] PRN Reason: Protocol Last Admin: 07/09/18 21:23 Dose: Not Given Lisinopril (Zestril) 10 mg PO DAILY [facility] Last Admin: 07/10/18 11:35 Dose: 10 mg Metformin HCl (Glucophage) 500 mg PO BID [facility] Last Admin: 07/10/18 11:35 Dose: 500 mg Pantoprazole Sodium (Protonix Ec Tab) 40 mg PO 0600 [facility] Last Admin: 07/10/18 05:10 Dose: 40 mg Thiamine HCl (Vitamin B1 Tab) 100 mg PO DAILY [facility] Last Admin: 07/10/18 11:37 Dose: 100 mg - Labs Labs: 06/21/18 06:00 06/21/18 06:00 PT 12.5 SECONDS (9.4-12.5) 12/09/17 10:00 INR 1.09 (0.93-1.08) H 12/09/17 10:00 APTT 28.3 Seconds (25.1-36.5) 11/30/17 05:30 Attending/Attestation - Attestation I have personally seen and examined this patient.: Yes I have fully participated in the care of the patient.: Yes I have reviewed all pertinent clinical information, including history, physical exam and plan: Yes Notes (Text): 07/10/18 15:18 Medical record note made by the resident after discussion with my direction and input after the patient was personally seen and examined by me. I have reviewed the chart and agree that the record accurately reflects by personal performance of the history, physical exam, data review, and medical decision-making, in the course for the patient. I have also personally directed the plan of care. 57 years old male , S/P sepsis due to strep viridans and Cogulase negative bacteremia from right gluteal and back cellulitis, S/P multifocal HCAP on top of Influenza A infection and S/P Sammie infection of sacral area as well. Mental status is at base line. There is no active issue. Patient is awaiting placement. Prognosis is guarded.
--- NOTE | 2018-07-10 15:02 | PN ---
DATE: 07/10/2018 SUBJECTIVE: The patient is in bed, no acute distress, nontoxic. PHYSICAL EXAMINATION: VITAL SIGNS: On exam, temperature is 97, blood pressure is 105/70, respiratory rate of 20, heart rate of 88. HEENT: Examination of HEENT is unremarkable. NECK: Supple. LUNGS: Have decreased breath sounds. HEART: Normal S1, S2. ABDOMEN: Soft, nontender. LABORATORY DATA: Laboratory examination reveals a white count of 9.4, hemoglobin of 8, platelets of 461. Creatinine is 0.5. Urinalysis is noted. Review of orders reveals the patient to be off of antibiotics. ASSESSMENT AND PLAN: A 58-year-old male, who was initially admitted with a coag-negative Staphylococcus and Streptococcus viridans bacteremia secondary to cellulitis and developed subsequently systemic inflammatory response syndrome and multifocal healthcare-associated pneumonia and influenza A. At this time, the patient had a prolonged hospitalization. Currently, off of antibiotics, afebrile. He is at risk for developing nosocomial infections. Daniel Torres MD
[2018-07-10] MEDS: Insulin Lispro (humaLOG) LOW Coverage SC SCH ×2 (19:03→21:41)
[2018-07-11] MEDS: Pantoprazole 40 mg EC Tab PO SCH (05:10)
[2018-07-11 07:19] LABS: BASO # 0.03 K/mm3 (0.0-2.0); BASO % 0.3 % (0.0-3.0); EOS # 0.2 (0.0-0.7); EOS % 1.9 % (1.5-5.0); GRAN # 6.53 (1.4-6.5); GRAN % 66.8 % (50.0-68.0); HEMOGLOBIN 8.6 g/dL (14.0-18.0); LYMPH # 2.2 (1.2-3.4); LYMPH % 22.3 % (22.0-35.0); MEAN CELL VOLUME 73.6 fl (80.0-105.0); MEAN CORPUSCULAR HEMOGLOBIN 22.5 pg (25.0-35.0); MEAN CORPUSCULAR HGB CONC 30.5 g/dl (31.0-37.0); MEAN PLATELET VOLUME 8.4 fl (7.0-11.0); MONO # 0.9 (0.1-0.6); MONO % 8.7 % (1.0-6.0); RBC 3.83 10^6/uL (3.5-6.1); RED CELL DISTRIBUTION WIDTH 15.4 % (11.5-14.5); WHITE BLOOD COUNT 9.8 10^3/ul (4.5-11.0)
[2018-07-11 07:42] LABS: ALB/GLOB RATIO 1.1 (1.1-1.8); ALBUMIN 3.7 g/dL (3.0-4.8); ALT/SGPT 22 U/L (7-56); AST/SGOT 34 U/L (17-59); BLOOD UREA NITROGEN 20 mg/dL (7-21); CALCIUM 9.4 mg/dL (8.4-10.5); GFR NON-AFRICAN AMERICAN > 60
[2018-07-11] MEDS: Insulin Lispro (humaLOG) LOW Coverage SC SCH ×4 (07:54→21:19)
[2018-07-11] MEDS: Collagenase 250 Units/gm Ointment(30 gm) TOP SCH (09:03)
--- NOTE | 2018-07-11 19:39 | CP.PCM.PN ---
<Debbie Matthews - Last Filed: 07/11/18 19:34> Subjective - Date & Time of Evaluation Date of Evaluation: 07/11/18 Time of Evaluation: 12:10 - Subjective Subjective: PGY-1 Kulwindergiuseppe Matthews Medicine Progress Note for Dr. Galo's service Patient seen and examined at bedside. Patient offers no acute complaints. Patient mental status limits 12 point ROS Objective - Vital Signs/Intake and Output Vital Signs (last 24 hours): Temp Pulse Resp BP Pulse Ox 98.1 F 84 20 116/74 97 07/11/18 07:39 07/11/18 09:02 07/11/18 07:39 07/11/18 09:02 07/11/18 07:39 Intake and Output: 07/11/18 07/12/18 18:59 06:59 Intake Total 1200 Balance 1200 - Medications Medications: Current Medications Aspirin (Aspirin Chewable) 81 mg PO DAILY [facility] Last Admin: 07/11/18 09:02 Dose: 81 mg Citalopram Hydrobromide (Celexa) 10 mg PO DAILY [facility] Last Admin: 07/11/18 09:02 Dose: 10 mg Collagenase (Santyl) 0 gm TOP DAILY [facility] Last Admin: 07/11/18 09:03 Dose: Not Given Docusate Sodium (Colace) 100 mg PO DAILY [facility] Ferrous Sulfate (Feosol Liq) 300 mg PO DAILY [facility] Insulin Human Lispro (Humalog Low) 0 units SC ACHS [facility] PRN Reason: Protocol Last Admin: 07/11/18 16:21 Dose: Not Given Lisinopril (Zestril) 10 mg PO DAILY [facility] Last Admin: 07/11/18 09:02 Dose: 10 mg Metformin HCl (Glucophage) 500 mg PO BID [facility] Last Admin: 07/11/18 17:09 Dose: 500 mg Pantoprazole Sodium (Protonix Ec Tab) 40 mg PO 0600 [facility] Last Admin: 07/11/18 05:10 Dose: 40 mg Thiamine HCl (Vitamin B1 Tab) 100 mg PO DAILY [facility] Last Admin: 07/11/18 09:02 Dose: 100 mg - Labs Labs: 07/11/18 06:40 07/11/18 06:40 PT 12.5 SECONDS (9.4-12.5) 12/09/17 10:00 INR 1.09 (0.93-1.08) H 12/09/17 10:00 APTT 28.3 Seconds (25.1-36.5) 11/30/17 05:30 - Additional Findings Additional findings: - Head Exam Head Exam: ATRAUMATIC, NORMAL INSPECTION, NORMOCEPHALIC - Eye Exam Eye Exam: Normal appearance - ENT Exam ENT Exam: Mucous Membranes Moist - Neck Exam Neck Exam: Full ROM - Respiratory Exam Respiratory Exam: Clear to Ausculation Bilateral, NORMAL BREATHING PATTERN. absent: Rhonchi, Wheezes - Cardiovascular Exam Cardiovascular Exam: REGULAR RHYTHM, +S1, +S2 - GI/Abdominal Exam GI & Abdominal Exam: Soft, Normal Bowel Sounds - Extremities Exam Extremities Exam: Full ROM, Normal Inspection - Back Exam Back Exam: NORMAL INSPECTION - Neurological Exam Neurological Exam: Alert, Awake, Oriented x3 - Psychiatric Exam Psychiatric exam: Normal Affect, Normal Mood - Skin Skin Exam: Intact, Normal Color, Warm Assessment and Plan - Assessment and Plan (Free Text) Assessment: 57 y/o male with unknown PMHx admitted on 11/29/17 for AMS, right hip cellulitis, multifocal pneumonia, influenza A, strep viridians bacteremia with findings of stroke on MRI - acute vs. 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 Patient was treated for bacteremia with IV abx. Patient is stable, state guardianship approved. Patient awaiting future placement. Plan: HTN BP Stable zestril 10mg po daily, Anemia Likely iron deficiency anemia Ferrous Sulfate 300mg po daily ; Colace 100mg po daily Colonic mass CT A/P showing colonic mass and hepatic lesions patient refused colonscopy Affective disorder Continue Celexa Altered mental status Patient is at baseline Aspirin 81mg po daily Dorsal Right Foot Ulcer Clean wound. no signs of infection. no treatment required Ccontinue wound care Diabetes mellitus type 2 ISS low Accuchecks Metformin 500mg po bid Hx ETOH Abuse Thiamine 100mg po daily Prophylaxis: DVT ppx SCDs GI ppx: Protonix 40mg po As per social media senior associate note: spoke with transfer machine operator who advised that court is in agreement with guardianship. Placido Polo was appointed guardian, patient access was requested to change information in chart. Twisting Frame Fixer also advised that the court is going to give an order to patient's bank to release five years of bank statements to placido polo. PA Anette and 5 placed in chart to be completed. will request a PAS for state. PA 4 and 5 formed filled and placed in chart. Sent by social media senior associate. Waiting for response. Further communication through social media senior associate <Sixto Galo - Last Filed: 07/12/18 08:22> Objective - Vital Signs/Intake and Output Vital Signs (last 24 hours): Temp Pulse Resp BP Pulse Ox 98 F 86 20 116/74 98 07/11/18 20:53 07/11/18 20:53 07/11/18 20:53 07/11/18 09:02 07/11/18 20:53 - Medications Medications: Current Medications Aspirin (Aspirin Chewable) 81 mg PO DAILY [facility] Last Admin: 07/11/18 09:02 Dose: 81 mg Citalopram Hydrobromide (Celexa) 10 mg PO DAILY [facility] Last Admin: 07/11/18 09:02 Dose: 10 mg Collagenase (Santyl) 0 gm TOP DAILY [facility] Last Admin: 07/11/18 09:03 Dose: Not Given Docusate Sodium (Colace) 100 mg PO DAILY [facility] Ferrous Sulfate (Feosol Liq) 300 mg PO DAILY [facility] Insulin Human Lispro (Humalog Low) 0 units SC [facility]; Protocol Last Admin: 07/11/18 21:19 Dose: Not Given Lisinopril (Zestril) 10 mg PO DAILY [facility] Last Admin: 07/11/18 09:02 Dose: 10 mg Metformin HCl (Glucophage) 500 mg PO BID [facility] Last Admin: 07/11/18 17:09 Dose: 500 mg Pantoprazole Sodium (Protonix Ec Tab) 40 mg PO 0600 [facility] Last Admin: 07/12/18 06:25 Dose: 40 mg Thiamine HCl (Vitamin B1 Tab) 100 mg PO DAILY [facility] Last Admin: 07/11/18 09:02 Dose: 100 mg - Labs Labs: 07/11/18 06:40 07/11/18 06:40 PT 12.5 SECONDS (9.4-12.5) 12/09/17 10:00 INR 1.09 (0.93-1.08) H 12/09/17 10:00 APTT 28.3 Seconds (25.1-36.5) 11/30/17 05:30 Attending/Attestation - Attestation I have personally seen and examined this patient.: Yes I have fully participated in the care of the patient.: Yes I have reviewed all pertinent clinical information, including history, physical exam and plan: Yes Notes (Text): 07/11/18 57 year old male who was admitted with altered mental status. He was found to have bacteremia, cellulitis and pneumonia for which he has completed antibiotics. He also had CVA. He is on aspirin and statin. Mental status is currently at baseline. No new complaints today; he is comfortable. Will start iron sulphate for anemia and colace to prevent constipation. Podiatry is following for foot ulceration. Patient is pending placement. Sixto Galo MD Hospitalist.
--- NOTE | 2018-07-11 22:01 | CP.PCM.PN ---
Subjective - Date & Time of Evaluation Date of Evaluation: 07/11/18 Time of Evaluation: 11:00 - Subjective Subjective: Comfortable in bed, no fevers. Objective - Vital Signs/Intake and Output Vital Signs (last 24 hours): Temp Pulse Resp BP Pulse Ox 98 F 86 20 116/74 98 07/11/18 20:53 07/11/18 20:53 07/11/18 20:53 07/11/18 09:02 07/11/18 20:53 Intake and Output: 07/11/18 07/12/18 18:59 06:59 Intake Total 1200 Balance 1200 - Medications Medications: Current Medications Aspirin (Aspirin Chewable) 81 mg PO DAILY [facility] Last Admin: 07/11/18 09:02 Dose: 81 mg Citalopram Hydrobromide (Celexa) 10 mg PO DAILY [facility] Last Admin: 07/11/18 09:02 Dose: 10 mg Collagenase (Santyl) 0 gm TOP DAILY [facility] Last Admin: 07/11/18 09:03 Dose: Not Given Docusate Sodium (Colace) 100 mg PO DAILY [facility] Ferrous Sulfate (Feosol Liq) 300 mg PO DAILY [facility] Insulin Human Lispro (Humalog Low) 0 units SC ACHS [facility] PRN Reason: Protocol Last Admin: 07/11/18 21:19 Dose: Not Given Lisinopril (Zestril) 10 mg PO DAILY [facility] Last Admin: 07/11/18 09:02 Dose: 10 mg Metformin HCl (Glucophage) 500 mg PO BID [facility] Last Admin: 07/11/18 17:09 Dose: 500 mg Pantoprazole Sodium (Protonix Ec Tab) 40 mg PO 0600 [facility] Last Admin: 07/11/18 05:10 Dose: 40 mg Thiamine HCl (Vitamin B1 Tab) 100 mg PO DAILY [facility] Last Admin: 07/11/18 09:02 Dose: 100 mg - Labs Labs: 07/11/18 06:40 07/11/18 06:40 PT 12.5 SECONDS (9.4-12.5) 12/09/17 10:00 INR 1.09 (0.93-1.08) H 12/09/17 10:00 APTT 28.3 Seconds (25.1-36.5) 11/30/17 05:30 - Constitutional Appears: Chronically Ill - Head Exam Head Exam: NORMAL INSPECTION - Respiratory Exam Respiratory Exam: Decreased Breath Sounds - Cardiovascular Exam Cardiovascular Exam: +S1, +S2 - GI/Abdominal Exam GI & Abdominal Exam: Soft. absent: Tenderness Assessment and Plan - Assessment and Plan (Free Text) Plan: Assessment S/P systemic inflammatory response syndrome, with no evidence of sepsis or infection, resolved S/P sepsis due to strep viridans and CoNS bacteremia from right gluteal and back cellulitis liver masses noted on ultrasound S/P multifocal HCAP on top of Influenza A infection S/P Sammie infection of sacral area as well peripheral vascular disease Plan continue to monitor clinically off antibiotics since he is at risk for healthcare-associated infections
[2018-07-12] MEDS: Pantoprazole 40 mg EC Tab PO SCH (06:25)
[2018-07-12] MEDS: Insulin Lispro (humaLOG) LOW Coverage SC SCH ×4 (08:34→21:34)
[2018-07-12] MEDS: Ferrous Sulfate 300 mg/5 mL Liq UD PO SCH (09:40)
[2018-07-12] MEDS: Collagenase 250 Units/gm Ointment(30 gm) TOP SCH (09:41)
--- NOTE | 2018-07-12 14:23 | CP.PCM.PN ---
<Debbie Matthews - Last Filed: 07/12/18 17:06> Subjective - Date & Time of Evaluation Date of Evaluation: 07/12/18 Time of Evaluation: 10:30 - Subjective Subjective: PGY-1 Debbie Matthews Medicine Progress note for Dr. Galo's service Patient seen and examined at bedside. Patient offers no acute complaints. Patient mental status limits 12 point ROS Objective - Vital Signs/Intake and Output Vital Signs (last 24 hours): Temp Pulse Resp BP Pulse Ox 97.6 F 87 20 113/76 95 07/12/18 08:44 07/12/18 08:44 07/12/18 08:44 07/12/18 08:44 07/12/18 08:44 - Medications Medications: Current Medications Aspirin (Aspirin Chewable) 81 mg PO DAILY [facility] Last Admin: 07/12/18 09:40 Dose: 81 mg Citalopram Hydrobromide (Celexa) 10 mg PO DAILY [facility] Last Admin: 07/12/18 09:41 Dose: 10 mg Collagenase (Santyl) 0 gm TOP DAILY [facility] Last Admin: 07/11/18 09:03 Dose: Not Given Docusate Sodium (Colace) 100 mg PO DAILY [facility] Last Admin: 07/12/18 09:40 Dose: 100 mg Ferrous Sulfate (Feosol Liq) 300 mg PO DAILY [facility] Last Admin: 07/12/18 09:40 Dose: 300 mg Insulin Human Lispro (Humalog Low) 0 units SC ACHS [facility]; Protocol Last Admin: 07/12/18 12:42 Dose: Not Given Lisinopril (Zestril) 10 mg PO DAILY [facility] Last Admin: 07/12/18 09:41 Dose: 10 mg Metformin HCl (Glucophage) 500 mg PO BID [facility] Last Admin: 07/12/18 09:40 Dose: 500 mg Pantoprazole Sodium (Protonix Ec Tab) 40 mg PO 0600 [facility] Last Admin: 07/12/18 06:25 Dose: 40 mg Thiamine HCl (Vitamin B1 Tab) 100 mg PO DAILY [facility] Last Admin: 07/12/18 09:41 Dose: 100 mg - Labs Labs: 07/11/18 06:40 07/11/18 06:40 PT 12.5 SECONDS (9.4-12.5) 12/09/17 10:00 INR 1.09 (0.93-1.08) H 02/22/18 10:00 APTT 28.3 Seconds (25.1-36.5) 11/30/17 05:30 - Additional Findings Additional findings: - Head Exam Head Exam: ATRAUMATIC, NORMAL INSPECTION, NORMOCEPHALIC - Eye Exam Eye Exam: Normal appearance - ENT Exam ENT Exam: Mucous Membranes Moist - Neck Exam Neck Exam: Full ROM - Respiratory Exam Respiratory Exam: Clear to Ausculation Bilateral, NORMAL BREATHING PATTERN. absent: Rhonchi, Wheezes - Cardiovascular Exam Cardiovascular Exam: REGULAR RHYTHM, +S1, +S2 - GI/Abdominal Exam GI & Abdominal Exam: Soft, Normal Bowel Sounds - Extremities Exam Extremities Exam: Full ROM, Normal Inspection - Back Exam Back Exam: NORMAL INSPECTION - Neurological Exam Neurological Exam: Alert, Awake, Oriented x3 - Psychiatric Exam Psychiatric exam: Normal Affect, Normal Mood - Skin Skin Exam: Intact, Normal Color, Warm Assessment and Plan - Assessment and Plan (Free Text) Assessment: 57 y/o male with unknown PMHx admitted on 11/29/17 for AMS, right hip cellulitis, multifocal pneumonia, influenza A, strep viridians bacteremia with findings of stroke on MRI - acute vs. subacute and CT findings concerning for metastatic C RC. Patient was treated for bacteremia with IV abx. Patient is stable, state guardianship approved. Patient awaiting future placement. Plan: HTN BP Stable zestril 10mg po daily, Anemia Likely iron deficiency anemia Ferrous Sulfate 300mg po daily ; Colace 100mg po daily Colonic mass CT A/P showing colonic mass and hepatic lesions patient refused colonscopy Affective disorder Continue Celexa Altered mental status Patient is at baseline Aspirin 81mg po daily Dorsal Right Foot Ulcer Clean wound. no signs of infection. no treatment required Ccontinue wound care Diabetes mellitus type 2 ISS low Accuchecks Metformin 500mg po bid Hx ETOH Abuse Thiamine 100mg po daily Prophylaxis: DVT ppx SCDs GI ppx: Protonix 40mg po As per social work nurse note: spoke with buggyman who advised that court is in agreement with guardianship. Placido Polo was appointed guardian, patient access was requested to change information in chart. Recreation Therapy Aides Teacher also advised that the court is going to give an ord er to patient's bank to release five years of bank statements to placido polo. PA 4 and 5 placed in chart to be completed. sw will request a PAS for state. PA 4 and 5 formed filled and placed in chart. Sent by social work nurse. Waiting for response. Further communication through social work nurse <Sixto Galo - Last Filed: 07/12/18 18:06> Objective - Vital Signs/Intake and Output Vital Signs (last 24 hours): Temp Pulse Resp BP Pulse Ox 97.6 F 87 20 113/76 95 07/12/18 08:44 07/12/18 08:44 07/12/18 08:44 07/12/18 08:44 07/12/18 08:44 - Medications Medications: Current Medications Aspirin (Aspirin Chewable) 81 mg PO DAILY [facility] Last Admin: 07/12/18 09:40 Dose: 81 mg Citalopram Hydrobromide (Celexa) 10 mg PO DAILY [facility] Last Admin: 07/12/18 09:41 Dose: 10 mg Collagenase (Santyl) 0 gm TOP DAILY [facility] Last Admin: 07/12/18 09:41 Dose: Not Given Docusate Sodium (Colace) 100 mg PO DAILY [facility] Last Admin: 07/12/18 09:40 Dose: 100 mg Ferrous Sulfate (Feosol Liq) 300 mg PO DAILY [facility] Last Admin: 07/12/18 09:40 Dose: 300 mg Insulin Human Lispro (Humalog Low) 0 units SC [facility]; Protocol Last Admin: 07/12/18 16:16 Dose: Not Given Lisinopril (Zestril) 10 mg PO DAILY [facility] Last Admin: 07/12/18 09:41 Dose: 10 mg Metformin HCl (Glucophage) 500 mg PO BID [facility] Last Admin: 07/12/18 17:37 Dose: 500 mg Pantoprazole Sodium (Protonix Ec Tab) 40 mg PO 0600 [facility] Last Admin: 07/12/18 06:25 Dose: 40 mg Thiamine HCl (Vitamin B1 Tab) 100 mg PO DAILY [facility] Last Admin: 07/12/18 09:41 Dose: 100 mg - Labs Labs: 07/11/18 06:40 07/11/18 06:40 PT 12.5 SECONDS (9.4-12.5) 12/09/17 10:00 INR 1.09 (0.93-1.08) H 12/09/17 10:00 APTT 28.3 Seconds (25.1-36.5) 11/30/17 05:30 Attending/Attestation - Attestation I have personally seen and examined this patient.: Yes I have fully participated in the care of the patient.: Yes I have reviewed all pertinent clinical information, including history, physical exam and plan: Yes Notes (Text): 07/12/18 18:04 57 year old male who was admitted with altered mental status. He was found to have bacteremia, cellulitis and pneumonia for which he has completed antibiotics. He also had CVA. He is on aspirin and statin. He is on iron supplement for anemia and colace to prevent constipation. Mental status is baseline. Podiatry is following for foot ulceration. Patient is pending placement. Sixto Galo MD Hospitalist.
--- NOTE | 2018-07-12 21:17 | CP.PCM.PN ---
Subjective - Date & Time of Evaluation Date of Evaluation: 07/12/18 Time of Evaluation: 10:05 - Subjective Subjective: Comfortable in bed, afebrile overnight. Objective - Vital Signs/Intake and Output Vital Signs (last 24 hours): Temp Pulse Resp BP Pulse Ox 98.4 F 87 18 97/66 L 97 07/12/18 18:56 07/12/18 18:56 07/12/18 18:56 07/12/18 18:56 07/12/18 18:56 Intake and Output: 07/12/18 07/13/18 18:59 06:59 Intake Total 1320 Balance 1320 - Medications Medications: Current Medications Aspirin (Aspirin Chewable) 81 mg PO DAILY [facility] Last Admin: 07/12/18 09:40 Dose: 81 mg Citalopram Hydrobromide (Celexa) 10 mg PO DAILY [facility] Last Admin: 07/12/18 09:41 Dose: 10 mg Collagenase (Santyl) 0 gm TOP DAILY [facility] Last Admin: 07/12/18 09:41 Dose: Not Given Docusate Sodium (Colace) 100 mg PO DAILY [facility] Last Admin: 07/12/18 09:40 Dose: 100 mg Ferrous Sulfate (Feosol Liq) 300 mg PO DAILY [facility] Last Admin: 07/12/18 09:40 Dose: 300 mg Insulin Human Lispro (Humalog Low) 0 units SC [facility]; Protocol Last Admin: 07/12/18 16:16 Dose: Not Given Lisinopril (Zestril) 10 mg PO DAILY [facility] Last Admin: 07/12/18 09:41 Dose: 10 mg Metformin HCl (Glucophage) 500 mg PO BID [facility] Last Admin: 07/12/18 17:37 Dose: 500 mg Pantoprazole Sodium (Protonix Ec Tab) 40 mg PO 0600 [facility] Last Admin: 07/12/18 06:25 Dose: 40 mg Thiamine HCl (Vitamin B1 Tab) 100 mg PO DAILY [facility] Last Admin: 07/12/18 09:41 Dose: 100 mg - Labs Labs: 07/11/18 06:40 07/11/18 06:40 PT 12.5 SECONDS (9.4-12.5) 12/09/17 10:00 INR 1.09 (0.93-1.08) H 12/09/17 10:00 APTT 28.3 Seconds (25.1-36.5) 11/30/17 05:30 - Constitutional Appears: Non-toxic, Chronically Ill - Head Exam Head Exam: NORMAL INSPECTION - Respiratory Exam Respiratory Exam: Decreased Breath Sounds - Cardiovascular Exam Cardiovascular Exam: +S1, +S2 - GI/Abdominal Exam GI & Abdominal Exam: Soft. absent: Tenderness Assessment and Plan - Assessment and Plan (Free Text) Plan: Assessment S/P systemic inflammatory response syndrome, with no evidence of sepsis or infection, resolved S/P sepsis due to strep viridans and CoNS bacteremia from right gluteal and back cellulitis liver masses noted on ultrasound S/P multifocal HCAP on top of Influenza A infection S/P Sammie infection of sacral area as well peripheral vascular disease Plan continue to monitor clinically off antibiotics since he is at risk for nosocomial infections
[2018-07-13] MEDS: Pantoprazole 40 mg EC Tab PO SCH (06:06)
[2018-07-13] MEDS: Insulin Lispro (humaLOG) LOW Coverage SC SCH ×4 (07:46→22:08)
[2018-07-13] MEDS: Ferrous Sulfate 300 mg/5 mL Liq UD PO SCH (09:14)
[2018-07-13] MEDS: Collagenase 250 Units/gm Ointment(30 gm) TOP SCH (09:18)
--- NOTE | 2018-07-13 11:44 | CP.PCM.PN ---
<Debbie Matthews - Last Filed: 07/13/18 14:45> Subjective - Date & Time of Evaluation Date of Evaluation: 07/13/18 Time of Evaluation: 10:45 - Subjective Subjective: PGY-1 Kulwindergiuseppe Matthews Medicine Progress note for Dr. Galo's service Patient seen and examined at bedside. Patient offers no acute complaints. Patient denies chest pain, sob, n/v, constipation or diarrhea, headaches, lightheadedness, and dysuria. Objective - Vital Signs/Intake and Output Vital Signs (last 24 hours): Temp Pulse Resp BP Pulse Ox 98.3 F 89 20 126/82 95 07/13/18 06:00 07/13/18 09:15 07/13/18 06:00 07/13/18 09:15 07/13/18 06:00 Intake and Output: 07/13/18 07/13/18 06:59 18:59 Intake Total 240 Output Total 1 Balance 239 - Medications Medications: Current Medications Aspirin (Aspirin Chewable) 81 mg PO DAILY [facility] Last Admin: 07/13/18 09:14 Dose: 81 mg Citalopram Hydrobromide (Celexa) 10 mg PO DAILY [facility] Last Admin: 07/13/18 09:14 Dose: 10 mg Collagenase (Santyl) 0 gm TOP DAILY [facility] Last Admin: 07/13/18 09:18 Dose: 1 applic Docusate Sodium (Colace) 100 mg PO DAILY [facility] Last Admin: 07/13/18 09:14 Dose: 100 mg Ferrous Sulfate (Feosol Liq) 300 mg PO DAILY [facility] Last Admin: 07/13/18 09:14 Dose: 300 mg Insulin Human Lispro (Humalog Low) 0 units SC [facility]; Protocol Last Admin: 07/13/18 07:46 Dose: Not Given Lisinopril (Zestril) 10 mg PO DAILY [facility] Last Admin: 07/13/18 09:15 Dose: 10 mg Metformin HCl (Glucophage) 500 mg PO BID [facility] Last Admin: 07/13/18 09:14 Dose: 500 mg Pantoprazole Sodium (Protonix Ec Tab) 40 mg PO 0600 [facility] Last Admin: 07/13/18 06:06 Dose: 40 mg Thiamine HCl (Vitamin B1 Tab) 100 mg PO DAILY [facility] Last Admin: 07/13/18 09:14 Dose: 100 mg - Labs Labs: 07/11/18 06:40 07/11/18 06:40 PT 12.5 SECONDS (9.4-12.5) 12/09/17 10:00 INR 1.09 (0.93-1.08) H 12/09/17 10:00 APTT 28.3 Seconds (25.1-36.5) 11/30/17 05:30 - Constitutional Appears: Non-toxic, No Acute Distress - Head Exam Head Exam: NORMAL INSPECTION, NORMOCEPHALIC - Eye Exam Eye Exam: EOMI, Normal appearance. absent: Nystagmus, Scleral icterus - ENT Exam ENT Exam: Mucous Membranes Moist - Respiratory Exam Respiratory Exam: Clear to Ausculation Bilateral, NORMAL BREATHING PATTERN. absent: Rales, Rhonchi, Wheezes - Cardiovascular Exam Cardiovascular Exam: REGULAR RHYTHM, +S1, +S2 - GI/Abdominal Exam GI & Abdominal Exam: Soft, Normal Bowel Sounds - Extremities Exam Extremities Exam: Normal Inspection. absent: Calf Tenderness, Pedal Edema - Neurological Exam Neurological Exam: Alert, Awake. absent: Oriented x3 - Psychiatric Exam Psychiatric exam: Normal Affect, Normal Mood - Skin Skin Exam: Intact, Normal Color Assessment and Plan - Assessment and Plan (Free Text) Assessment: 57 y/o male with unknown PMHx admitted on 11/29/17 for AMS, right hip cellulitis, multifocal pneumonia, influenza A, strep viridians bacteremia with findings of stroke on MRI - acute vs. 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 Patient was treated for bacteremia with IV abx. Patient is stable, state guardianship approved. Patient awaiting future placement. Plan: HTN Lisinopril 10mg po daily Anemia Likely iron deficiency anemia Ferrous Sulfate 300mg po daily ; Colace 100mg po daily Colonic mass CT A/P showing colonic mass and hepatic lesions patient refused colonscopy Affective disorder Celexa 10mg po daily Altered mental status Patient is at baseline Aspirin 81mg po daily Dorsal Right Foot Ulcer Clean wound. no signs of infection. no treatment required Continue wound care Diabetes mellitus type 2 ISS low Accuchecks Metformin 500mg po bid Hx ETOH Abuse Thiamine 100mg po daily Prophylaxis: DVT ppx SCDs GI ppx: Protonix 40mg po As per social worker masters note: spoke with project construction manager who advised that court is in agreement with guardianship. Placido Polo was appointed guardian, patient access was requested to change information in chart. Sales Lead also advised that the court is going to give an order to patient's bank to release five years of bank statements to placido polo. PA 4 and 5 placed in chart to be completed. will request a PAS for state. PA 4 and 5 formed filled and placed in chart. Sent by social worker masters. Waiting for response. Further communication through social worker masters Medical Managment discussed with Dr. Galo <Sixto Galo - Last Filed: 07/13/18 17:57> Objective - Vital Signs/Intake and Output Vital Signs (last 24 hours): Temp Pulse Resp BP Pulse Ox 98.3 F 107 H 18 113/69 96 07/13/18 16:36 07/13/18 16:36 07/13/18 16:36 07/13/18 16:36 07/13/18 16:36 Intake and Output: 07/13/18 07/13/18 06:59 18:59 Intake Total 240 Output Total 1 Balance 239 - Medications Medications: Current Medications Aspirin (Aspirin Chewable) 81 mg PO DAILY [facility] Last Admin: 07/13/18 09:14 Dose: 81 mg Citalopram Hydrobromide (Celexa) 10 mg PO DAILY [facility] Last Admin: 07/13/18 09:14 Dose: 10 mg Collagenase (Santyl) 0 gm TOP DAILY [facility] Last Admin: 07/13/18 09:18 Dose: 1 applic Docusate Sodium (Colace) 100 mg PO DAILY [facility] Last Admin: 07/13/18 09:14 Dose: 100 mg Ferrous Sulfate (Feosol Liq) 300 mg PO DAILY [facility] Last Admin: 07/13/18 09:14 Dose: 300 mg Insulin Human Lispro (Humalog Low) 0 units SC [facility]; Protocol Last Admin: 07/13/18 16:30 Dose: Not Given Lisinopril (Zestril) 10 mg PO DAILY [facility] Last Admin: 07/13/18 09:15 Dose: 10 mg Metformin HCl (Glucophage) 500 mg PO BID [facility] Last Admin: 07/13/18 17:11 Dose: 500 mg Pantoprazole Sodium (Protonix Ec Tab) 40 mg PO 0600 [facility] Last Admin: 07/13/18 06:06 Dose: 40 mg Thiamine HCl (Vitamin B1 Tab) 100 mg PO DAILY [facility] Last Admin: 07/13/18 09:14 Dose: 100 mg - Labs Labs: 07/11/18 06:40 07/11/18 06:40 PT 12.5 SECONDS (9.4-12.5) 12/09/17 10:00 INR 1.09 (0.93-1.08) H 12/09/17 10:00 APTT 28.3 Seconds (25.1-36.5) 11/30/17 05:30 Attending/Attestation - Attestation I have personally seen and examined this patient.: Yes I have fully participated in the care of the patient.: Yes I have reviewed all pertinent clinical information, including history, physical exam and plan: Yes Notes (Text): 07/13/18 17:56 57 year old male who was admitted with altered mental status. He was found to have bacteremia, cellulitis and pneumonia for which he has completed antibiotics. He also had CVA. He is on aspirin and statin. He is on iron supplement for anemia and colace to prevent constipation. Mental status is baseline. No new complaints today. Podiatry is following for foot ulceration. Patient is pending placement. Sixto Galo MD Hospitalist.
--- NOTE | 2018-07-13 13:43 | PN ---
DATE: 07/13/2018 SUBJECTIVE: The patient is in bed, in no acute distress, nontoxic. The patient was seen early this morning. PHYSICAL EXAMINATION: VITAL SIGNS: Temperature is 98, blood pressure is 112/70, respiratory rate of 18. HEENT: Examination of HEENT is unremarkable. NECK: Supple. LUNGS: Have decreased breath sounds. HEART: Normal S1 and S2. ABDOMEN: Soft. LABORATORY DATA: Laboratory examination reviewed. ASSESSMENT AND PLAN: A 57-year-old male with status post sepsis with Streptococcus viridans and coagulase-negative bacteremia and right gluteal and back cellulitis. The patient has a liver mass on ultrasound. Also, developed systemic inflammatory response syndrome in the hospital. Also, had influenza A. Currently, off of antibiotics. Afebrile. The patient is at risk for developing nosocomial infections. Daniel Torres MD
[2018-07-14] MEDS: Pantoprazole 40 mg EC Tab PO SCH (06:08)
[2018-07-14] MEDS: Insulin Lispro (humaLOG) LOW Coverage SC SCH ×4 (08:06→21:30)
[2018-07-14] MEDS: Ferrous Sulfate 300 mg/5 mL Liq UD PO SCH (09:32)
[2018-07-14] MEDS: Collagenase 250 Units/gm Ointment(30 gm) TOP SCH (09:35)
--- NOTE | 2018-07-14 12:28 | CP.PCM.PN ---
<Debbie Matthews - Last Filed: 07/14/18 15:20> Subjective - Date & Time of Evaluation Date of Evaluation: 07/14/18 Time of Evaluation: 10:30 - Subjective Subjective: PGY-1 Kulwindergiuseppe Matthews Medicine Progress note for Dr. Galo's service Patient seen and examined at bedside. Patient offers no acute complaints. Patient mental status limits 12 point ROS Objective - Vital Signs/Intake and Output Vital Signs (last 24 hours): Temp Pulse Resp BP Pulse Ox 98.1 F 97 H 20 121/77 97 07/14/18 06:00 07/14/18 09:32 07/14/18 06:00 07/14/18 09:32 07/14/18 06:00 Intake and Output: 07/14/18 07/14/18 06:59 18:59 Intake Total 120 740 Balance 120 740 - Medications Medications: Current Medications Aspirin (Aspirin Chewable) 81 mg PO DAILY [facility] Last Admin: 07/14/18 09:32 Dose: 81 mg Citalopram Hydrobromide (Celexa) 10 mg PO DAILY [facility] Last Admin: 07/14/18 09:33 Dose: 10 mg Collagenase (Santyl) 0 gm TOP DAILY [facility] Last Admin: 07/14/18 09:35 Dose: 1 applic Docusate Sodium (Colace) 100 mg PO DAILY [facility] Last Admin: 07/14/18 09:33 Dose: 100 mg Ferrous Sulfate (Feosol Liq) 300 mg PO DAILY [facility] Last Admin: 07/14/18 09:32 Dose: 300 mg Insulin Human Lispro (Humalog Low) 0 units SC [facility]; Protocol Last Admin: 07/14/18 08:06 Dose: Not Given Lisinopril (Zestril) 10 mg PO DAILY [facility] Last Admin: 07/14/18 09:32 Dose: 10 mg Pantoprazole Sodium (Protonix Ec Tab) 40 mg PO 0600 [facility] Last Admin: 07/14/18 06:08 Dose: 40 mg Thiamine HCl (Vitamin B1 Tab) 100 mg PO DAILY [facility] Last Admin: 07/14/18 09:33 Dose: 100 mg - Labs Labs: 07/11/18 06:40 07/11/18 06:40 PT 12.5 SECONDS (9.4-12.5) 12/09/17 10:00 INR 1.09 (0.93-1.08) H 12/09/17 10:00 APTT 28.3 Seconds (25.1-36.5) 11/30/17 05:30 - Additional Findings Additional findings: - Head Exam Head Exam: ATRAUMATIC, NORMAL INSPECTION, NORMOCEPHALIC - Eye Exam Eye Exam: Normal appearance - ENT Exam ENT Exam: Mucous Membranes Moist - Neck Exam Neck Exam: Full ROM - Respiratory Exam Respiratory Exam: Clear to Ausculation Bilateral, NORMAL BREATHING PATTERN. absent: Rhonchi, Wheezes - Cardiovascular Exam Cardiovascular Exam: REGULAR RHYTHM, +S1, +S2 - GI/Abdominal Exam GI & Abdominal Exam: Soft, Normal Bowel Sounds - Extremities Exam Extremities Exam: Full ROM, Normal Inspection - Back Exam Back Exam: NORMAL INSPECTION - Neurological Exam Neurological Exam: Alert, Awake, Oriented x3 - Psychiatric Exam Psychiatric exam: Normal Affect, Normal Mood - Skin Skin Exam: Intact, Normal Color, Warm Assessment and Plan - Assessment and Plan (Free Text) Assessment: 57 y/o male with unknown PMHx admitted on 11/29/17 for AMS, right hip cellulitis, multifocal pneumonia, influenza A, strep viridians bacteremia with findings of stroke on MRI - acute vs. 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 Patient was treated for bacteremia with IV abx. Patient is stable, state guardianship approved. Patient awaiting future placement. Plan: HTN Lisinopril 10mg po daily Anemia Likely iron deficiency anemia Ferrous Sulfate 300mg po daily ; Colace 100mg po daily Colonic mass CT A/P showing colonic mass and hepatic lesions patient refused colonscopy Affective disorder Celexa 10mg po daily Altered mental status Patient is at baseline Aspirin 81mg po daily Dorsal Right Foot Ulcer Clean wound. no signs of infection. no treatment required Continue wound care Diabetes mellitus type 2 ISS low Accuchecks Metformin 500mg po bid Hx ETOH Abuse Thiamine 100mg po daily Prophylaxis: DVT ppx SCDs GI ppx: Protonix 40mg po As per family welfare social work professor note: spoke with prison officer who advised that court is in agreement with guardianship. Placido Polo was appointed guardian, patient access was requested to change information in chart. Health Occupations Teacher also advised that the court is going to give an order to patient's bank to release five years of bank statements to placido polo. PA 4 and 5 placed in chart to be completed. sw will request a PAS for state. PA 4 and 5 formed filled and placed in chart. Sent by family welfare social work professor. Waiting for response. Further communication through family welfare social work professor Medical Managment discussed with Dr. Galo <Sixto Galo - Last Filed: 07/14/18 15:53> Objective - Vital Signs/Intake and Output Vital Signs (last 24 hours): Temp Pulse Resp BP Pulse Ox 98.1 F 97 H 20 121/77 97 07/14/18 06:00 07/14/18 09:32 07/14/18 06:00 07/14/18 09:32 07/14/18 06:00 Intake and Output: 07/14/18 07/14/18 06:59 18:59 Intake Total 120 740 Balance 120 740 - Medications Medications: Current Medications Aspirin (Aspirin Chewable) 81 mg PO DAILY [facility] Last Admin: 07/14/18 09:32 Dose: 81 mg Citalopram Hydrobromide (Celexa) 10 mg PO DAILY [facility] Last Admin: 07/14/18 09:33 Dose: 10 mg Collagenase (Santyl) 0 gm TOP DAILY [facility] Last Admin: 07/14/18 09:35 Dose: 1 applic Docusate Sodium (Colace) 100 mg PO DAILY [facility] Last Admin: 07/14/18 09:33 Dose: 100 mg Ferrous Sulfate (Feosol Liq) 300 mg PO DAILY [facility] Last Admin: 07/14/18 09:32 Dose: 300 mg Insulin Human Lispro (Humalog Low) 0 units SC [facility]; Protocol Last Admin: 07/14/18 12:22 Dose: 1 units Lisinopril (Zestril) 10 mg PO DAILY [facility] Last Admin: 07/14/18 09:32 Dose: 10 mg Pantoprazole Sodium (Protonix Ec Tab) 40 mg PO 0600 [facility] Last Admin: 07/14/18 06:08 Dose: 40 mg Thiamine HCl (Vitamin B1 Tab) 100 mg PO DAILY [facility] Last Admin: 07/14/18 09:33 Dose: 100 mg - Labs Labs: 07/11/18 06:40 07/11/18 06:40 PT 12.5 SECONDS (9.4-12.5) 12/09/17 10:00 INR 1.09 (0.93-1.08) H 12/09/17 10:00 APTT 28.3 Seconds (25.1-36.5) 11/30/17 05:30 Attending/Attestation - Attestation I have personally seen and examined this patient.: Yes I have fully participated in the care of the patient.: Yes I have reviewed all pertinent clinical information, including history, physical exam and plan: Yes Notes (Text): 07/14/18 15:52 57 year old male who was admitted with altered mental status. He was found to have bacteremia, cellulitis and pneumonia for which he has completed antibiotics. He also had CVA. He is on aspirin and statin. He is on iron supplement for anemia. He is comfortable this morning without complaints. Patient is pending placement. Sixto Galo MD Hospitalist.
--- NOTE | 2018-07-15 01:46 | PN ---
DATE: 07/14/2018 SUBJECTIVE: The patient is in bed, in no acute distress, nontoxic. PHYSICAL EXAMINATION: VITAL SIGNS: Temperature is 98, blood pressure is 120/80, respiratory rate of 18, heart rate 90. HEENT: Unremarkable. NECK: Supple. LUNGS: Have decreased breath sounds. HEART: Normal S1, S2. ABDOMEN: Soft. LABORATORY EXAMINATION: Reveals the patient's white count is 9.8, hemoglobin of 8 and the chemistries are noted. BUN of 20, creatinine of 0.5. Urinalysis is noted. Influenza is noted. ASSESSMENT AND PLAN: This is a 57-year-old male with status post sepsis and strep viridans and coag-negative staph bacteremia, right gluteal back cellulitis, liver mass on ultrasound, which also developed with systemic inflammatory response syndrome, currently off of antibiotics, afebrile. The patient is at risk for developing nosocomial infections. Daniel Torres MD
[2018-07-15] MEDS: Pantoprazole 40 mg EC Tab PO SCH (05:10)
[2018-07-15] MEDS: Insulin Lispro (humaLOG) LOW Coverage SC SCH ×3 (09:35→16:12)
[2018-07-15] MEDS: Ferrous Sulfate 300 mg/5 mL Liq UD PO SCH (09:41)
--- NOTE | 2018-07-15 16:42 | CP.PCM.PN ---
Subjective - Date & Time of Evaluation Date of Evaluation: 07/15/18 Time of Evaluation: 10:10 - Subjective Subjective: Comfortable in bed, no fevers, not in distress. Objective - Vital Signs/Intake and Output Vital Signs (last 24 hours): Temp Pulse Resp BP Pulse Ox 98 F 98 H 18 120/80 98 07/14/18 17:29 07/14/18 17:29 07/14/18 17:29 07/14/18 17:29 07/14/18 17:29 Intake and Output: 07/14/18 07/15/18 18:59 06:59 Intake Total 1700 Balance 1700 - Medications Medications: Current Medications Aspirin (Aspirin Chewable) 81 mg PO DAILY [facility] Last Admin: 07/14/18 09:32 Dose: 81 mg Citalopram Hydrobromide (Celexa) 10 mg PO DAILY [facility] Last Admin: 07/14/18 09:33 Dose: 10 mg Collagenase (Santyl) 0 gm TOP DAILY [facility] Last Admin: 07/14/18 09:35 Dose: 1 applic Docusate Sodium (Colace) 100 mg PO DAILY [facility] Last Admin: 07/14/18 09:33 Dose: 100 mg Ferrous Sulfate (Feosol Liq) 300 mg PO DAILY [facility] Last Admin: 07/14/18 09:32 Dose: 300 mg Insulin Human Lispro (Humalog Low) 0 units SC [facility]; Protocol Last Admin: 07/14/18 21:30 Dose: Not Given Lisinopril (Zestril) 10 mg PO DAILY [facility] Last Admin: 07/14/18 09:32 Dose: 10 mg Pantoprazole Sodium (Protonix Ec Tab) 40 mg PO 0600 [facility] Last Admin: 07/14/18 06:08 Dose: 40 mg Thiamine HCl (Vitamin B1 Tab) 100 mg PO DAILY [facility] Last Admin: 07/14/18 09:33 Dose: 100 mg - Labs Labs: 07/11/18 06:40 07/11/18 06:40 PT 12.5 SECONDS (9.4-12.5) 12/09/17 10:00 INR 1.09 (0.93-1.08) H 12/09/17 10:00 APTT 28.3 Seconds (25.1-36.5) 11/30/17 05:30 - Constitutional Appears: Chronically Ill - Head Exam Head Exam: NORMAL INSPECTION - Respiratory Exam Respiratory Exam: Decreased Breath Sounds - Cardiovascular Exam Cardiovascular Exam: +S1, +S2 - GI/Abdominal Exam GI & Abdominal Exam: Soft. absent: Tenderness Assessment and Plan - Assessment and Plan (Free Text) Plan: Assessment S/P systemic inflammatory response syndrome, with no evidence of sepsis or infection, resolved S/P sepsis due to strep viridans and CoNS bacteremia from right gluteal and back cellulitis liver masses noted on ultrasound S/P multifocal HCAP on top of Influenza A infection S/P Sammie infection of sacral area as well peripheral vascular disease Plan continue to monitor clinically off antibiotics since he is at risk for hospital- acquired infections
--- NOTE | 2018-07-15 16:53 | CP.PCM.PN ---
<Debbie Matthews - Last Filed: 07/15/18 16:53> Subjective - Date & Time of Evaluation Date of Evaluation: 07/15/18 Time of Evaluation: 11:30 - Subjective Subjective: PGY-1 Debbie [facility] Medicine Progress note for Dr. Galo's service Patient seen and examined at bedside. Patient offers no acute complaints. Patient mental status limits 12 point ROS Objective - Vital Signs/Intake and Output Vital Signs (last 24 hours): Temp Pulse Resp BP Pulse Ox 98.7 F 88 18 94/64 L 97 07/15/18 16:46 07/15/18 16:46 07/15/18 16:46 07/15/18 16:46 07/15/18 16:46 Intake and Output: 07/15/18 07/15/18 06:59 18:59 Intake Total 480 Balance 480 - Medications Medications: Current Medications Aspirin (Aspirin Chewable) 81 mg PO DAILY [facility] Last Admin: 07/15/18 09:40 Dose: 81 mg Citalopram Hydrobromide (Celexa) 10 mg PO DAILY [facility] Last Admin: 07/15/18 09:41 Dose: 10 mg Collagenase (Santyl) 0 gm TOP DAILY [facility] Last Admin: 07/14/18 09:35 Dose: 1 applic Docusate Sodium (Colace) 100 mg PO DAILY [facility] Last Admin: 07/15/18 09:41 Dose: 100 mg Ferrous Sulfate (Feosol Liq) 300 mg PO DAILY [facility] Last Admin: 07/15/18 09:41 Dose: 300 mg Insulin Human Lispro (Humalog Low) 0 units SC [facility]; Protocol Last Admin: 07/15/18 16:12 Dose: Not Given Lisinopril (Zestril) 10 mg PO DAILY [facility] Last Admin: 07/15/18 09:40 Dose: 10 mg Pantoprazole Sodium (Protonix Ec Tab) 40 mg PO 0600 [facility] Last Admin: 07/15/18 05:10 Dose: 40 mg Thiamine HCl (Vitamin B1 Tab) 100 mg PO DAILY [facility] Last Admin: 07/15/18 09:41 Dose: 100 mg - Labs Labs: 07/11/18 06:40 07/11/18 06:40 PT 12.5 SECONDS (9.4-12.5) 12/09/17 10:00 INR 1.09 (0.93-1.08) H 02/22/18 10:00 APTT 28.3 Seconds (25.1-36.5) 11/30/17 05:30 - Constitutional Appears: Non-toxic, No Acute Distress - Head Exam Head Exam: NORMAL INSPECTION, NORMOCEPHALIC - Eye Exam Eye Exam: EOMI, Normal appearance. absent: Nystagmus, Scleral icterus - ENT Exam ENT Exam: Mucous Membranes Moist - Respiratory Exam Respiratory Exam: Clear to Ausculation Bilateral, NORMAL BREATHING PATTERN. absent: Rales, Rhonchi, Wheezes - Cardiovascular Exam Cardiovascular Exam: REGULAR RHYTHM, +S1, +S2. absent: Murmur - GI/Abdominal Exam GI & Abdominal Exam: Soft, Normal Bowel Sounds. absent: Distended, Firm, Guarding, Tenderness - Extremities Exam Extremities Exam: Normal Inspection. absent: Calf Tenderness, Pedal Edema - Neurological Exam Neurological Exam: Alert, Awake, Oriented x3 - Psychiatric Exam Psychiatric exam: Normal Affect, Normal Mood - Skin Skin Exam: Intact, Normal Color Assessment and Plan - Assessment and Plan (Free Text) Assessment: 57 y/o male with unknown PMHx admitted on 11/29/17 for AMS, right hip cellulitis, multifocal pneumonia, influenza A, strep viridians bacteremia with findings of stroke on MRI - acute vs. 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 Patient was treated for bacteremia with IV abx. Patient is stable, state guardianship approved. Patient may be transferred early next week pending social work Plan: HTN Lisinopril 10mg po daily Anemia Likely iron deficiency anemia Ferrous Sulfate 300mg po daily ; Colace 100mg po daily Colonic mass CT A/P showing colonic mass and hepatic lesions patient refused colonscopy Affective disorder Celexa 10mg po daily Altered mental status Patient is at baseline Aspirin 81mg po daily Dorsal Right Foot Ulcer Clean wound. no signs of infection. no treatment required Continue wound care Diabetes mellitus type 2 ISS low Accuchecks Metformin 500mg po bid Hx ETOH Abuse Thiamine 100mg po daily Prophylaxis: DVT ppx SCDs GI ppx: Protonix 40mg po As per social media job titles note: spoke with management manager who advised that court is in agreement with guardianship. Erinn Polo was appointed guardian, patient access was requested to change information in chart. Obstetrics Nurse also advised that the court is going to give an order to patient's bank to release five years of bank statements to placido polo. PA 4 and 5 placed in chart to be completed. will request a PAS for state. PA 4 and 5 formed filled and placed in chart. Sent by social media job titles. Waiting for response. Further communication through social media job titles Social work found placement but need further approval for transfer. Likely transfer next week. Medical Managment discussed with Dr. Galo <Sixto Galo - Last Filed: 07/15/18 16:56> Objective - Vital Signs/Intake and Output Vital Signs (last 24 hours): Temp Pulse Resp BP Pulse Ox 98.7 F 88 18 94/64 L 97 07/15/18 16:46 07/15/18 16:46 07/15/18 16:46 07/15/18 16:46 07/15/18 16:46 Intake and Output: 07/15/18 07/15/18 06:59 18:59 Intake Total 480 Balance 480 - Medications Medications: Current Medications Aspirin (Aspirin Chewable) 81 mg PO DAILY [facility] Last Admin: 07/15/18 09:40 Dose: 81 mg Citalopram Hydrobromide (Celexa) 10 mg PO DAILY [facility] Last Admin: 07/15/18 09:41 Dose: 10 mg Collagenase (Santyl) 0 gm TOP DAILY [facility] Last Admin: 07/14/18 09:35 Dose: 1 applic Docusate Sodium (Colace) 100 mg PO DAILY [facility] Last Admin: 07/15/18 09:41 Dose: 100 mg Ferrous Sulfate (Feosol Liq) 300 mg PO DAILY [facility] Last Admin: 07/15/18 09:41 Dose: 300 mg Insulin Human Lispro (Humalog Low) 0 units SC [facility]; Protocol Last Admin: 07/15/18 16:12 Dose: Not Given Lisinopril (Zestril) 10 mg PO DAILY [facility] Last Admin: 07/15/18 09:40 Dose: 10 mg Pantoprazole Sodium (Protonix Ec Tab) 40 mg PO 0600 [facility] Last Admin: 07/15/18 05:10 Dose: 40 mg Thiamine HCl (Vitamin B1 Tab) 100 mg PO DAILY [facility] Last Admin: 07/15/18 09:41 Dose: 100 mg - Labs Labs: 07/11/18 06:40 07/11/18 06:40 PT 12.5 SECONDS (9.4-12.5) 12/09/17 10:00 INR 1.09 (0.93-1.08) H 12/09/17 10:00 APTT 28.3 Seconds (25.1-36.5) 11/30/17 05:30 Attending/Attestation - Attestation I have personally seen and examined this patient.: Yes I have fully participated in the care of the patient.: Yes I have reviewed all pertinent clinical information, including history, physical exam and plan: Yes Notes (Text): 07/15/18 16:55 57 year old male who was admitted with altered mental status. He was found to have bacteremia, cellulitis and pneumonia for which he has completed antibiotics. He also had CVA. He is on aspirin and statin. He is on iron supplement for anemia. His mental status is at baseline. SW note was reviewed; placement is found but pending approval. Sixto Galo MD Hospitalist.
[2018-07-16] MEDS: Pantoprazole 40 mg EC Tab PO SCH (06:42)
[2018-07-16] MEDS: Insulin Lispro (humaLOG) LOW Coverage SC SCH ×2 (07:12→08:03)
[2018-07-16] MEDS: Ferrous Sulfate 300 mg/5 mL Liq UD PO SCH (10:11)
[2018-07-16] MEDS: Collagenase 250 Units/gm Ointment(30 gm) TOP SCH (10:13)
[2018-07-16] MEDS: Insulin Lispro 1 UNITS/0.01 ML SC SCH ×2 (12:24→16:26)
--- NOTE | 2018-07-16 12:59 | CP.PCM.PN ---
Subjective - Date & Time of Evaluation Date of Evaluation: 07/16/18 Time of Evaluation: 12:25 - Subjective Subjective: Comfortable, no fevers. Objective - Vital Signs/Intake and Output Vital Signs (last 24 hours): Temp Pulse Resp BP Pulse Ox 98.0 F 83 19 110/73 97 07/16/18 06:00 07/16/18 10:11 07/16/18 06:00 07/16/18 10:11 07/16/18 06:00 - Medications Medications: Current Medications Aspirin (Aspirin Chewable) 81 mg PO DAILY [facility] Last Admin: 07/16/18 10:12 Dose: 81 mg Citalopram Hydrobromide (Celexa) 10 mg PO DAILY [facility] Last Admin: 07/16/18 10:11 Dose: 10 mg Collagenase (Santyl) 0 gm TOP DAILY [facility] Last Admin: 07/16/18 10:13 Dose: 1 applic Docusate Sodium (Colace) 100 mg PO DAILY [facility] Last Admin: 07/16/18 10:11 Dose: 100 mg Ferrous Sulfate (Feosol Liq) 300 mg PO DAILY [facility] Last Admin: 07/16/18 10:11 Dose: 300 mg Insulin Human Lispro (Humalog) 0 units SC [facility]; Protocol Lisinopril (Zestril) 10 mg PO DAILY [facility] Last Admin: 07/16/18 10:11 Dose: 10 mg Metformin HCl (Glucophage) 500 mg PO BID [facility] Pantoprazole Sodium (Protonix Ec Tab) 40 mg PO 0600 [facility] Last Admin: 07/16/18 06:42 Dose: 40 mg Thiamine HCl (Vitamin B1 Tab) 100 mg PO DAILY [facility] Last Admin: 07/16/18 10:11 Dose: 100 mg - Labs Labs: 07/11/18 06:40 07/11/18 06:40 PT 12.5 SECONDS (9.4-12.5) 12/09/17 10:00 INR 1.09 (0.93-1.08) H 12/09/17 10:00 APTT 28.3 Seconds (25.1-36.5) 11/30/17 05:30 - Constitutional Appears: Chronically Ill - Head Exam Head Exam: NORMAL INSPECTION - Respiratory Exam Respiratory Exam: Decreased Breath Sounds - Cardiovascular Exam Cardiovascular Exam: +S1, +S2 - GI/Abdominal Exam GI & Abdominal Exam: Soft. absent: Tenderness Assessment and Plan - Assessment and Plan (Free Text) Plan: Assessment S/P systemic inflammatory response syndrome, with no evidence of sepsis or infection, resolved S/P sepsis due to strep viridans and CoNS bacteremia from right gluteal and back cellulitis liver masses noted on ultrasound S/P multifocal HCAP on top of Influenza A infection S/P Sammie infection of sacral area as well peripheral vascular disease Plan continue to monitor clinically off antibiotics since he is at risk for healthcare-associated infections
--- NOTE | 2018-07-16 13:50 | CP.PCM.PN ---
<Rocael Bowie - Last Filed: 07/16/18 13:45> Subjective - Date & Time of Evaluation Date of Evaluation: 07/16/18 Time of Evaluation: 13:45 - Subjective Subjective: Maurice Bowie PGY2 IM Resident - Progress Note for Dr. Galo Patient seen and examined this AM. No acute events reported overnight. Patient reports no complaints at time of interview. Objective - Vital Signs/Intake and Output Vital Signs (last 24 hours): Temp Pulse Resp BP Pulse Ox 98.0 F 83 19 110/73 97 07/16/18 06:00 07/16/18 10:11 07/16/18 06:00 07/16/18 10:11 07/16/18 06:00 - Medications Medications: Current Medications Aspirin (Aspirin Chewable) 81 mg PO DAILY [facility] Last Admin: 07/16/18 10:12 Dose: 81 mg Citalopram Hydrobromide (Celexa) 10 mg PO DAILY [facility] Last Admin: 07/16/18 10:11 Dose: 10 mg Collagenase (Santyl) 0 gm TOP DAILY [facility] Last Admin: 07/16/18 10:13 Dose: 1 applic Docusate Sodium (Colace) 100 mg PO DAILY [facility] Last Admin: 07/16/18 10:11 Dose: 100 mg Ferrous Sulfate (Feosol Liq) 300 mg PO DAILY [facility] Last Admin: 07/16/18 10:11 Dose: 300 mg Insulin Human Lispro (Humalog) 0 units SC [facility]; Protocol Last Admin: 07/16/18 12:24 Dose: 2 units Lisinopril (Zestril) 10 mg PO DAILY [facility] Last Admin: 07/16/18 10:11 Dose: 10 mg Metformin HCl (Glucophage) 500 mg PO BID [facility] Pantoprazole Sodium (Protonix Ec Tab) 40 mg PO 0600 [facility] Last Admin: 07/16/18 06:42 Dose: 40 mg Thiamine HCl (Vitamin B1 Tab) 100 mg PO DAILY [facility] Last Admin: 07/16/18 10:11 Dose: 100 mg - Labs Labs: 07/11/18 06:40 07/11/18 06:40 PT 12.5 SECONDS (9.4-12.5) 12/09/17 10:00 INR 1.09 (0.93-1.08) H 12/09/17 10:00 APTT 28.3 Seconds (25.1-36.5) 11/30/17 05:30 Assessment and Plan - Assessment and Plan (Free Text) Assessment: 57 y/o male with unknown PMHx admitted on 11/29/17 for AMS, right hip cellulitis, multifocal pneumonia, influenza A, strep viridians bacteremia with findings of stroke on MRI - acute vs. 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 Patient was treated for bacteremia with IV abx. Patient is stable, state guardianship approved Plan: HTN Lisinopril 10mg po daily Anemia Likely iron deficiency anemia Ferrous Sulfate 300mg po daily ; Colace 100mg po daily Colonic mass CT A/P showing colonic mass and hepatic lesions patient refused colonscopy Affective disorder Celexa 10mg po daily Altered mental status Patient is at baseline Aspirin 81mg po daily Dorsal Right Foot Ulcer Clean wound. no signs of infection. no treatment required Continue wound care Diabetes mellitus type 2 ISS low Accuchecks Metformin 500mg po bid Hx ETOH Abuse Thiamine 100mg po daily Prophylaxis: DVT ppx SCDs GI ppx: Protonix 40mg po Patient seen, case and plan discussed with attending Dispo: Court appointed ani established, Social work foudn placement but will need further approval for transfer, possible transfer to facility next week <Sixto Galo - Last Filed: 07/16/18 15:12> Objective - Vital Signs/Intake and Output Vital Signs (last 24 hours): Temp Pulse Resp BP Pulse Ox 98.0 F 83 19 110/73 97 07/16/18 06:00 07/16/18 10:11 07/16/18 06:00 07/16/18 10:11 07/16/18 06:00 - Medications Medications: Current Medications Aspirin (Aspirin Chewable) 81 mg PO DAILY [facility] Last Admin: 07/16/18 10:12 Dose: 81 mg Citalopram Hydrobromide (Celexa) 10 mg PO DAILY [facility] Last Admin: 07/16/18 10:11 Dose: 10 mg Collagenase (Santyl) 0 gm TOP DAILY [facility] Last Admin: 07/16/18 10:13 Dose: 1 applic Docusate Sodium (Colace) 100 mg PO DAILY [facility] Last Admin: 07/16/18 10:11 Dose: 100 mg Ferrous Sulfate (Feosol Liq) 300 mg PO DAILY [facility] Last Admin: 07/16/18 10:11 Dose: 300 mg Insulin Human Lispro (Humalog) 0 units SC [facility]; Protocol Last Admin: 07/16/18 12:24 Dose: 2 units Lisinopril (Zestril) 10 mg PO DAILY [facility] Last Admin: 07/16/18 10:11 Dose: 10 mg Metformin HCl (Glucophage) 500 mg PO BID [facility] Pantoprazole Sodium (Protonix Ec Tab) 40 mg PO 0600 [facility] Last Admin: 07/16/18 06:42 Dose: 40 mg Thiamine HCl (Vitamin B1 Tab) 100 mg PO DAILY [facility] Last Admin: 07/16/18 10:11 Dose: 100 mg - Labs Labs: 07/11/18 06:40 07/11/18 06:40 PT 12.5 SECONDS (9.4-12.5) 12/09/17 10:00 INR 1.09 (0.93-1.08) H 12/09/17 10:00 APTT 28.3 Seconds (25.1-36.5) 11/30/17 05:30 Attending/Attestation - Attestation I have personally seen and examined this patient.: Yes I have fully participated in the care of the patient.: Yes I have reviewed all pertinent clinical information, including history, physical exam and plan: Yes Notes (Text): 07/16/18 15:12 57 year old male who was admitted with altered mental status. He was found to have bacteremia, cellulitis and pneumonia for which he has completed antibiotics. He also had CVA. He is on aspirin and statin. He is on iron supplement for anemia. His mental status is at baseline. No new complaints this morning. SW note was reviewed; placement is found but pending approval. Sixto Galo MD Hospitalist.
[2018-07-17] MEDS: Pantoprazole 40 mg EC Tab PO SCH (06:19)
[2018-07-17] MEDS: Insulin Lispro 1 UNITS/0.01 ML SC SCH ×3 (08:41→17:11)
[2018-07-17] MEDS: Ferrous Sulfate 300 mg/5 mL Liq UD PO SCH (10:12)
[2018-07-17] MEDS: Collagenase 250 Units/gm Ointment(30 gm) TOP SCH (10:13)
--- NOTE | 2018-07-17 10:38 | CP.PCM.PN ---
<Car Dupree - Last Filed: 07/17/18 16:43> Subjective - Date & Time of Evaluation Date of Evaluation: 07/17/18 Time of Evaluation: 09:38 - Subjective Subjective: Car Dupree PGY2 IM Progress Note for Dr. Galo Patient was seen and examined at bedside. There were no acute overnight events. Patient offers no complaints . Objective - Vital Signs/Intake and Output Vital Signs (last 24 hours): Temp Pulse Resp BP Pulse Ox 97.8 F 81 18 101/68 98 07/17/18 06:00 07/17/18 10:12 07/17/18 06:00 07/17/18 10:12 07/17/18 06:00 Intake and Output: 07/17/18 07/17/18 06:59 18:59 Intake Total 0 Balance 0 - Medications Medications: Current Medications Aspirin (Aspirin Chewable) 81 mg PO DAILY [facility] Last Admin: 07/17/18 10:13 Dose: 81 mg Citalopram Hydrobromide (Celexa) 10 mg PO DAILY [facility] Last Admin: 07/17/18 10:13 Dose: 10 mg Collagenase (Santyl) 0 gm TOP DAILY [facility] Last Admin: 07/17/18 10:13 Dose: Not Given Docusate Sodium (Colace) 100 mg PO DAILY [facility] Last Admin: 07/17/18 10:13 Dose: 100 mg Ferrous Sulfate (Feosol Liq) 300 mg PO DAILY [facility] Last Admin: 07/17/18 10:12 Dose: 300 mg Insulin Human Lispro (Humalog) 0 units [facility]; Protocol Last Admin: 07/17/18 08:41 Dose: Not Given Lisinopril (Zestril) 10 mg PO DAILY [facility] Last Admin: 07/17/18 10:12 Dose: 10 mg Metformin HCl (Glucophage) 500 mg PO BID [facility] Last Admin: 07/17/18 10:12 Dose: 500 mg Pantoprazole Sodium (Protonix Ec Tab) 40 mg PO 0600 [facility] Last Admin: 07/17/18 06:19 Dose: 40 mg Thiamine HCl (Vitamin B1 Tab) 100 mg PO DAILY [facility] Last Admin: 07/17/18 10:13 Dose: 100 mg - Labs Labs: 07/11/18 06:40 07/11/18 06:40 PT 12.5 SECONDS (9.4-12.5) 12/09/17 10:00 INR 1.09 (0.93-1.08) H 12/09/17 10:00 APTT 28.3 Seconds (25.1-36.5) 11/30/17 05:30 - Additional Findings Additional findings: - Constitutional Appears: Non-toxic, No Acute Distress - Head Exam Head Exam: NORMAL INSPECTION, NORMOCEPHALIC - Eye Exam Eye Exam: EOMI, Normal appearance. absent: Nystagmus, Scleral icterus - ENT Exam ENT Exam: Mucous Membranes Moist - Respiratory Exam Respiratory Exam: Clear to Ausculation Bilateral, NORMAL BREATHING PATTERN. absent: Rales, Rhonchi, Wheezes - Cardiovascular Exam Cardiovascular Exam: REGULAR RHYTHM, +S1, +S2. absent: Murmur - GI/Abdominal Exam GI & Abdominal Exam: Soft, Normal Bowel Sounds. absent: Distended, Firm, Guarding, Tenderness - Extremities Exam Extremities Exam: Normal Inspection. absent: Calf Tenderness, Pedal Edema - Neurological Exam Neurological Exam: Altered (at baseline) - Psychiatric Exam Psychiatric exam: Normal Affect, Normal Mood - Skin Skin Exam: Intact, Normal Color Assessment and Plan - Assessment and Plan (Free Text) Assessment: 58 y/o male with unknown PMHx admitted on 11/29/17 for AMS, right hip cellulitis, multifocal pneumonia, influenza A, strep viridians bacteremia with findings of stroke on MRI - acute vs. 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 Patient was treated for bacteremia with IV abx. Currently off abx and is stable, state guardianship approved Plan: 1. HTN Lisinopril 10mg po daily 2. Anemia Likely iron deficiency anemia Ferrous Sulfate 300mg po daily ; Colace 100mg po daily 3. Colonic mass CT A/P showing colonic mass and hepatic lesions patient refused colonscopy 4. Affective disorder Celexa 10mg po daily 5. Altered mental status Patient is at baseline Aspirin 81mg po daily 6. Dorsal Right Foot Ulcer Clean wound. no signs of infection. no treatment required Continue wound care 7. Diabetes mellitus type 2 ISS low Accuchecks Metformin 500mg po bid 8. Hx ETOH Abuse Thiamine 100mg po daily 9. Prophylaxis: DVT ppx SCDs GI ppx: Protonix 40mg po Dispo: Court appointed guardian established, Social work found placement but will need further approval for transfer, possible transfer to facility this week Patient was examined and discussed with attending, Dr. Iraj Dupree PGY2 <Sixto Galo - Last Filed: 07/17/18 16:54> Objective - Vital Signs/Intake and Output Vital Signs (last 24 hours): Temp Pulse Resp BP Pulse Ox 98.3 F 91 H 19 105/68 98 07/17/18 16:40 07/17/18 16:40 07/17/18 16:40 07/17/18 16:40 07/17/18 16:40 Intake and Output: 07/17/18 07/17/18 06:59 18:59 Intake Total 0 Balance 0 - Medications Medications: Current Medications Aspirin (Aspirin Chewable) 81 mg PO DAILY [facility] Last Admin: 07/17/18 10:13 Dose: 81 mg Citalopram Hydrobromide (Celexa) 10 mg PO DAILY [facility] Last Admin: 07/17/18 10:13 Dose: 10 mg Collagenase (Santyl) 0 gm TOP DAILY [facility] Last Admin: 07/17/18 10:13 Dose: Not Given Docusate Sodium (Colace) 100 mg PO DAILY [facility] Last Admin: 07/17/18 10:13 Dose: 100 mg Ferrous Sulfate (Feosol Liq) 300 mg PO DAILY [facility] Last Admin: 07/17/18 10:12 Dose: 300 mg Insulin Human Lispro (Humalog) 0 units [facility]; Protocol Last Admin: 07/17/18 12:35 Dose: 1 units Lisinopril (Zestril) 10 mg PO DAILY [facility] Last Admin: 07/17/18 10:12 Dose: 10 mg Metformin HCl (Glucophage) 500 mg PO BID [facility] Last Admin: 07/17/18 10:12 Dose: 500 mg Pantoprazole Sodium (Protonix Ec Tab) 40 mg PO 0600 [facility] Last Admin: 07/17/18 06:19 Dose: 40 mg Thiamine HCl (Vitamin B1 Tab) 100 mg PO DAILY [facility] Last Admin: 07/17/18 10:13 Dose: 100 mg - Labs Labs: 07/11/18 06:40 07/11/18 06:40 PT 12.5 SECONDS (9.4-12.5) 12/09/17 10:00 INR 1.09 (0.93-1.08) H 12/09/17 10:00 APTT 28.3 Seconds (25.1-36.5) 11/30/17 05:30 Attending/Attestation - Attestation I have personally seen and examined this patient.: Yes I have fully participated in the care of the patient.: Yes I have reviewed all pertinent clinical information, including history, physical exam and plan: Yes Notes (Text): 07/17/18 16:53 57 year old male who was admitted with altered mental status. He was found to have bacteremia, cellulitis and pneumonia for which he has completed antibiotics. He also had CVA. He is on aspirin and statin. He is on iron supplement for anemia. Colace for constipation. His mental status is at baseline. No new complaints today. SW note was reviewed; placement is found but pending approval. Will follow up tomorrow. Sixto Galo MD Hospitalist.
--- NOTE | 2018-07-17 10:53 | CP.PCM.PN ---
Subjective - Date & Time of Evaluation Date of Evaluation: 07/17/18 Time of Evaluation: 10:05 - Subjective Subjective: No fevers, not in distress. Objective - Vital Signs/Intake and Output Vital Signs (last 24 hours): Temp Pulse Resp BP Pulse Ox 97.8 F 81 18 101/68 98 07/17/18 06:00 07/17/18 06:00 07/17/18 06:00 07/17/18 06:00 07/17/18 06:00 Intake and Output: 07/17/18 07/17/18 06:59 18:59 Intake Total 0 Balance 0 - Medications Medications: Current Medications Aspirin (Aspirin Chewable) 81 mg PO DAILY [facility] Last Admin: 07/16/18 10:12 Dose: 81 mg Citalopram Hydrobromide (Celexa) 10 mg PO DAILY [facility] Last Admin: 07/16/18 10:11 Dose: 10 mg Collagenase (Santyl) 0 gm TOP DAILY [facility] Last Admin: 07/16/18 10:13 Dose: 1 applic Docusate Sodium (Colace) 100 mg PO DAILY [facility] Last Admin: 07/16/18 10:11 Dose: 100 mg Ferrous Sulfate (Feosol Liq) 300 mg PO DAILY [facility] Last Admin: 07/16/18 10:11 Dose: 300 mg Insulin Human Lispro (Humalog) [address] [facility]; Protocol Last Admin: 07/17/18 08:41 Dose: Not Given Lisinopril (Zestril) 10 mg PO DAILY [facility] Last Admin: 07/16/18 10:11 Dose: 10 mg Metformin HCl (Glucophage) 500 mg PO BID [facility] Last Admin: 07/16/18 17:01 Dose: 500 mg Pantoprazole Sodium (Protonix Ec Tab) 40 mg PO 0600 [facility] Last Admin: 07/17/18 06:19 Dose: 40 mg Thiamine HCl (Vitamin B1 Tab) 100 mg PO DAILY [facility] Last Admin: 07/16/18 10:11 Dose: 100 mg - Labs Labs: 07/11/18 06:40 07/11/18 06:40 PT 12.5 SECONDS (9.4-12.5) 12/09/17 10:00 INR 1.09 (0.93-1.08) H 12/09/17 10:00 APTT 28.3 Seconds (25.1-36.5) 11/30/17 05:30 - Constitutional Appears: Non-toxic, Chronically Ill - Head Exam Head Exam: NORMAL INSPECTION - Respiratory Exam Respiratory Exam: Decreased Breath Sounds - Cardiovascular Exam Cardiovascular Exam: +S1, +S2 - GI/Abdominal Exam GI & Abdominal Exam: Soft. absent: Tenderness Assessment and Plan - Assessment and Plan (Free Text) Plan: Assessment S/P systemic inflammatory response syndrome, with no evidence of sepsis or infection, resolved S/P sepsis due to strep viridans and CoNS bacteremia from right gluteal and back cellulitis liver masses noted on ultrasound S/P multifocal HCAP on top of Influenza A infection S/P Sammie infection of sacral area as well peripheral vascular disease Plan continue to monitor clinically off antibiotics since he is at risk for nosoco mial infections
[2018-07-18] MEDS: Pantoprazole 40 mg EC Tab PO SCH (05:01)
[2018-07-18] MEDS: Ferrous Sulfate 300 mg/5 mL Liq UD PO SCH (09:18)
[2018-07-18] MEDS: Insulin Lispro 1 UNITS/0.01 ML SC SCH ×3 (09:19→17:11)
[2018-07-18] MEDS: Collagenase 250 Units/gm Ointment(30 gm) TOP SCH (12:57)
--- NOTE | 2018-07-18 13:50 | CP.PCM.PN ---
Subjective - Date & Time of Evaluation Date of Evaluation: 07/18/18 Time of Evaluation: 10:55 - Subjective Subjective: Afebrile, non-toxic. Objective - Vital Signs/Intake and Output Vital Signs (last 24 hours): Temp Pulse Resp BP Pulse Ox 98.2 F 95 H 18 116/80 96 07/18/18 08:53 07/18/18 09:19 07/18/18 08:53 07/18/18 09:19 07/18/18 08:53 - Medications Medications: Current Medications Docusate Sodium (Colace) 100 mg PO DAILY [facility] Last Admin: 07/18/18 09:18 Dose: 100 mg Ferrous Sulfate (Feosol Liq) 300 mg PO DAILY [facility] Last Admin: 07/18/18 09:18 Dose: 300 mg Insulin Human Lispro (Humalog) 0 units SC AC [facility]; Protocol Last Admin: 07/18/18 13:10 Dose: 1 units Metformin HCl (Glucophage) 500 mg PO BID [facility] Last Admin: 07/18/18 09:18 Dose: 500 mg Pantoprazole Sodium (Protonix Ec Tab) 40 mg PO 0600 [facility] Last Admin: 07/18/18 05:01 Dose: 40 mg - Labs Labs: 07/11/18 06:40 07/11/18 06:40 PT 12.5 SECONDS (9.4-12.5) 12/09/17 10:00 INR 1.09 (0.93-1.08) H 12/09/17 10:00 APTT 28.3 Seconds (25.1-36.5) 11/30/17 05:30 - Constitutional Appears: Non-toxic, Chronically Ill - Head Exam Head Exam: NORMAL INSPECTION - Respiratory Exam Respiratory Exam: Decreased Breath Sounds - Cardiovascular Exam Cardiovascular Exam: +S1, +S2 - GI/Abdominal Exam GI & Abdominal Exam: Soft. absent: Tenderness Assessment and Plan - Assessment and Plan (Free Text) Plan: Assessment S/P systemic inflammatory response syndrome, with no evidence of sepsis or infection, resolved S/P sepsis due to strep viridans and CoNS bacteremia from right gluteal and back cellulitis liver masses noted on ultrasound S/P multifocal HCAP on top of Influenza A infection S/P Sammie infection of sacral area as well peripheral vascular disease Plan continue to monitor clinically off antibiotics since he is at risk for hospital- acquired infections
--- NOTE | 2018-07-18 16:13 | CP.PCM.PN ---
Subjective - Date & Time of Evaluation Date of Evaluation: 07/18/18 Time of Evaluation: 10:35 - Subjective Subjective: PGY-1 [facility] Medicine Progress note for Dr. Schumacher's service Patient seen and examined at bedside. Patient offers no acute complaints. Patient denies headaches, dizziness, lightheadedness, chest pain, sob, n/v, constipation or diarrhea, dysuria. Objective - Vital Signs/Intake and Output Vital Signs (last 24 hours): Temp Pulse Resp BP Pulse Ox 98.2 F 95 H 18 116/80 96 07/18/18 08:53 07/18/18 09:19 07/18/18 08:53 07/18/18 09:19 07/18/18 08:53 - Medications Medications: Current Medications Docusate Sodium (Colace) 100 mg PO DAILY [facility] Last Admin: 07/18/18 09:18 Dose: 100 mg Ferrous Sulfate (Feosol Liq) 300 mg PO DAILY [facility] Last Admin: 07/18/18 09:18 Dose: 300 mg Insulin Human Lispro (Humalog) 0 units SC [facility]; Protocol Last Admin: 07/18/18 13:10 Dose: 1 units Metformin HCl (Glucophage) 500 mg PO BID [facility] Last Admin: 07/18/18 09:18 Dose: 500 mg Pantoprazole Sodium (Protonix Ec Tab) 40 mg PO 0600 [facility] Last Admin: 07/18/18 05:01 Dose: 40 mg - Labs Labs: 07/11/18 06:40 07/11/18 06:40 PT 12.5 SECONDS (9.4-12.5) 12/09/17 10:00 INR 1.09 (0.93-1.08) H 12/09/17 10:00 APTT 28.3 Seconds (25.1-36.5) 11/30/17 05:30 - Additional Findings Additional findings: - Constitutional Appears: Non-toxic, No Acute Distress - Head Exam Head Exam: NORMAL INSPECTION, NORMOCEPHALIC - Eye Exam Eye Exam: EOMI, Normal appearance. absent: Nystagmus, Scleral icterus - ENT Exam ENT Exam: Mucous Membranes Moist - Respiratory Exam Respiratory Exam: Clear to Ausculation Bilateral, NORMAL BREATHING PATTERN. absent: Rales, Rhonchi, Wheezes - Cardiovascular Exam Cardiovascular Exam: REGULAR RHYTHM, +S1, +S2. absent: Murmur - GI/Abdominal Exam GI & Abdominal Exam: Soft, Normal Bowel Sounds. absent: Distended, Firm, Guarding, Tenderness - Extremities Exam Extremities Exam: Normal Inspection. absent: Calf Tenderness, Pedal Edema - Neurological Exam Neurological Exam: Alert, Awake, Oriented x3 - Psychiatric Exam Psychiatric exam: Normal Affect, Normal Mood - Skin Skin Exam: Intact, Normal Color Assessment and Plan - Assessment and Plan (Free Text) Assessment: 58 y/o male with unknown PMHx admitted on 11/29/17 for AMS, right hip cellulitis, multifocal pneumonia, influenza A, strep viridians bacteremia with findings of stroke on MRI - acute vs. 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 Patient was treated for bacteremia with IV abx. Patient is stable, state guardianship approved. Patient may be transferred early next week pending social work Plan: HTN Lisinopril 10mg po daily Anemia Likely iron deficiency anemia Ferrous Sulfate 300mg po daily ; Colace 100mg po daily Colonic mass CT A/P showing colonic mass and hepatic lesions patient refused colonscopy Affective disorder Celexa 10mg po daily Altered mental status Patient is at baseline Aspirin 81mg po daily Dorsal Right Foot Ulcer Clean wound. no signs of infection. no treatment required Continue wound care Diabetes mellitus type 2 ISS low Accuchecks Metformin 500mg po bid Hx ETOH Abuse Thiamine 100mg po daily Prophylaxis: DVT ppx SCDs GI ppx: Protonix 40mg po As per Social Work Social work found placement but need further approval for transfer. Likely transfer next week. Medical Managment discussed with Dr. Schumacher
[2018-07-19] MEDS: Pantoprazole 40 mg EC Tab PO SCH (05:14)
[2018-07-19] MEDS: Ferrous Sulfate 300 mg/5 mL Liq UD PO SCH (10:07)
[2018-07-19] MEDS: Insulin Lispro 1 UNITS/0.01 ML SC SCH ×3 (10:08→18:21)
--- NOTE | 2018-07-19 15:03 | CP.PCM.PN ---
<Debbie Matthews - Last Filed: 07/19/18 15:02> Subjective - Date & Time of Evaluation Date of Evaluation: 07/19/18 Time of Evaluation: 10:45 - Subjective Subjective: PGY-1 [facility] Progress note for Dr. Schumacher's service Patient seen and examined at bedside. Patient offers no acute complaints. Patient denies headaches, dizziness, lightheadedness, chest pain, sob, n/v, constipation or diarrhea, dysuria. Objective - Vital Signs/Intake and Output Vital Signs (last 24 hours): Temp Pulse Resp BP Pulse Ox 98.1 F 92 H 20 98/68 L 97 07/19/18 08:00 07/19/18 08:00 07/19/18 08:00 07/19/18 08:00 07/19/18 08:00 - Medications Medications: Current Medications Docusate Sodium (Colace) 100 mg PO DAILY [facility] Last Admin: 07/19/18 10:06 Dose: 100 mg Ferrous Sulfate (Feosol Liq) 300 mg PO DAILY [facility] Last Admin: 07/19/18 10:07 Dose: 300 mg Insulin Human Lispro (Humalog) 0 units SC AC [facility]; Protocol Last Admin: 07/19/18 11:53 Dose: 1 units Metformin HCl (Glucophage) 500 mg PO BID [facility] Last Admin: 07/19/18 10:07 Dose: 500 mg - Labs Labs: 07/11/18 06:40 07/11/18 06:40 PT 12.5 SECONDS (9.4-12.5) 12/09/17 10:00 INR 1.09 (0.93-1.08) H 12/09/17 10:00 APTT 28.3 Seconds (25.1-36.5) 11/30/17 05:30 - Additional Findings Additional findings: - Constitutional Appears: Non-toxic, No Acute Distress - Head Exam Head Exam: NORMAL INSPECTION, NORMOCEPHALIC - Eye Exam Eye Exam: EOMI, Normal appearance. absent: Nystagmus, Scleral icterus - ENT Exam ENT Exam: Mucous Membranes Moist - Respiratory Exam Respiratory Exam: Clear to Ausculation Bilateral, NORMAL BREATHING PATTERN. absent: Rales, Rhonchi, Wheezes - Cardiovascular Exam Cardiovascular Exam: REGULAR RHYTHM, +S1, +S2. absent: Murmur - GI/Abdominal Exam GI & Abdominal Exam: Soft, Normal Bowel Sounds. absent: Distended, Firm, Guarding, Tenderness - Extremities Exam Extremities Exam: Normal Inspection. absent: Calf Tenderness, Pedal Edema - Neurological Exam Neurological Exam: Alert, Awake, Oriented x3 - Psychiatric Exam Psychiatric exam: Normal Affect, Normal Mood - Skin Skin Exam: Intact, Normal Color Assessment and Plan - Assessment and Plan (Free Text) Assessment: 58 y/o male with unknown PMHx admitted on 11/29/17 for AMS, right hip cellulitis, multifocal pneumonia, influenza A, strep viridians bacteremia with findings of stroke on MRI - acute vs. 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 Patient was treated for bacteremia with IV abx. Patient is stable, state guardianship approved. Patient may be transferred this or Wednesday pending what guardian says tomorrow Plan: HTN Lisinopril 10mg po daily Anemia Likely iron deficiency anemia Ferrous Sulfate 300mg po daily ; Colace 100mg po daily Colonic mass CT A/P showing colonic mass and hepatic lesions patient refused colonscopy Affective disorder Celexa 10mg po daily Altered mental status Patient is at baseline Aspirin 81mg po daily Dorsal Right Foot Ulcer Clean wound. no signs of infection. no treatment required Continue wound care Diabetes mellitus type 2 ISS low Accuchecks Metformin 500mg po bid Hx ETOH Abuse Thiamine 100mg po daily Prophylaxis: DVT ppx SCDs GI ppx: Protonix 40mg po As per Social Work Social work found placement but need further approval for transfer. Likely transfer this week pending guardian who will come tomorrow Medical Managment discussed with Dr. Schumacher <Deanna Schumacher - Last Filed: 07/21/18 13:40> Objective - Vital Signs/Intake and Output Vital Signs (last 24 hours): Temp Pulse Resp BP Pulse Ox 97.9 F 94 H 20 123/86 76 L 07/21/18 06:00 07/21/18 06:00 07/21/18 06:00 07/21/18 06:00 07/21/18 06:00 Intake and Output: 07/21/18 07/21/18 06:59 18:59 Intake Total 120 Balance 120 - Medications Medications: Current Medications Docusate Sodium (Colace) 100 mg PO DAILY [facility] Last Admin: 07/21/18 09:15 Dose: 100 mg Ferrous Sulfate (Feosol Liq) 300 mg PO DAILY [facility] Last Admin: 07/21/18 09:17 Dose: 300 mg Insulin Human Lispro (Humalog) 0 units SC AC [facility]; Protocol Last Admin: 07/21/18 11:05 Dose: Not Given Metformin HCl (Glucophage) 500 mg PO BID [facility] Last Admin: 07/21/18 09:16 Dose: 500 mg - Labs Labs: 07/11/18 06:40 07/11/18 06:40 PT 12.5 SECONDS (9.4-12.5) 12/09/17 10:00 INR 1.09 (0.93-1.08) H 12/09/17 10:00 APTT 28.3 Seconds (25.1-36.5) 11/30/17 05:30 Attending/Attestation - Attestation I have personally seen and examined this patient.: Yes I have fully participated in the care of the patient.: Yes I have reviewed all pertinent clinical information, including history, physical exam and plan: Yes Notes (Text): 07/21/18 13:40 Medical record note made by the resident after discussion with my direction and input after the patient was personally seen and examined by me. I have reviewed the chart and agree that the record accurately reflects by personal performance of the history, physical exam, data review, and medical decision-making, in the course for the patient. I have also personally directed the plan of care.
--- NOTE | 2018-07-20 01:39 | PN ---
DATE: 07/19/2018 SUBJECTIVE: The patient is in bed, in no acute distress, nontoxic. PHYSICAL EXAMINATION: VITAL SIGNS: On exam, temperature is 98, blood pressure is 100/60, respiratory rate of 20. HEENT: Examination of HEENT is unremarkable. NECK: Supple. LUNGS: Have decreased breath sounds. HEART: Normal S1, S2. ABDOMEN: Soft. LABORATORY DATA: Laboratory examination reveals a white count of 9.8, hemoglobin of 8. The chemistries are noted. ASSESSMENT AND PLAN: A 57-year-old, status post systemic inflammatory response syndrome. No evidence of infection or sepsis. Status post sepsis due to Streptococcus viridans. Coagulase-negative bacteremia secondary to right gluteal and back cellulitis in a patient who had status post multifocal healthcare-associated pneumonia on top of influenza A and peripheral vascular disease, has liver masses on ultrasound. Currently, off of antibiotics. The patient is at risk for developing nosocomial infections. Daniel Torres MD
[2018-07-20] MEDS: Insulin Lispro 1 UNITS/0.01 ML SC SCH ×3 (08:00→17:29)
[2018-07-20] MEDS: Ferrous Sulfate 300 mg/5 mL Liq UD PO SCH (10:05)
--- NOTE | 2018-07-20 15:28 | CP.PCM.PN ---
<Debbie Matthews - Last Filed: 07/20/18 15:26> Subjective - Date & Time of Evaluation Date of Evaluation: 07/20/18 Time of Evaluation: 11:10 - Subjective Subjective: PGY-1 [facility] Progress note for Dr. Schumacher's service Patient seen and examined at bedside. Patient offers no acute complaints. Patient denies headaches, dizziness, lightheadedness, chest pain, sob, n/v, constipation or diarrhea, dysuria. Objective - Vital Signs/Intake and Output Vital Signs (last 24 hours): Temp Pulse Resp BP Pulse Ox 97.3 F L 92 H 20 104/68 96 07/20/18 06:00 07/20/18 06:00 07/20/18 06:00 07/20/18 06:00 07/20/18 06:00 - Medications Medications: Current Medications Docusate Sodium (Colace) 100 mg PO DAILY [facility] Last Admin: 07/20/18 10:05 Dose: 100 mg Ferrous Sulfate (Feosol Liq) 300 mg PO DAILY [facility] Last Admin: 07/20/18 10:05 Dose: 300 mg Insulin Human Lispro (Humalog) 0 units SC AC [facility]; Protocol Last Admin: 07/20/18 11:23 Dose: 3 units Metformin HCl (Glucophage) 500 mg PO BID [facility] Last Admin: 07/20/18 10:05 Dose: 500 mg - Labs Labs: 07/11/18 06:40 07/11/18 06:40 PT 12.5 SECONDS (9.4-12.5) 12/09/17 10:00 INR 1.09 (0.93-1.08) H 12/09/17 10:00 APTT 28.3 Seconds (25.1-36.5) 11/30/17 05:30 - Additional Findings Additional findings: - Constitutional Appears: Non-toxic, No Acute Distress - Head Exam Head Exam: NORMAL INSPECTION, NORMOCEPHALIC - Eye Exam Eye Exam: EOMI, Normal appearance. absent: Nystagmus, Scleral icterus - ENT Exam ENT Exam: Mucous Membranes Moist - Respiratory Exam Respiratory Exam: Clear to Ausculation Bilateral, NORMAL BREATHING PATTERN. absent: Rales, Rhonchi, Wheezes - Cardiovascular Exam Cardiovascular Exam: REGULAR RHYTHM, +S1, +S2. absent: Murmur - GI/Abdominal Exam GI & Abdominal Exam: Soft, Normal Bowel Sounds. absent: Distended, Firm, Guarding, Tenderness - Extremities Exam Extremities Exam: Normal Inspection. absent: Calf Tenderness, Pedal Edema - Neurological Exam Neurological Exam: Alert, Awake, Oriented x3 - Psychiatric Exam Psychiatric exam: Normal Affect, Normal Mood - Skin Skin Exam: Intact, Normal Color Assessment and Plan - Assessment and Plan (Free Text) Assessment: 58 y/o male with unknown PMHx admitted on 11/29/17 for AMS, right hip cellulitis, multifocal pneumonia, influenza A, strep viridians bacteremia with findings of stroke on MRI - acute vs. 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 Patient was treated for bacteremia with IV abx. Patient is stable, state guardianship approved. Patient may be transferred this or Wednesday pending what guardian says today Plan: HTN Lisinopril 10mg po daily Anemia Likely iron deficiency anemia Ferrous Sulfate 300mg po daily ; Colace 100mg po daily Colonic mass CT A/P showing colonic mass and hepatic lesions patient refused colonscopy Affective disorder Celexa 10mg po daily Altered mental status Patient is at baseline Aspirin 81mg po daily Dorsal Right Foot Ulcer Clean wound. no signs of infection. no treatment required Continue wound care Diabetes mellitus type 2 ISS low Accuchecks Metformin 500mg po bid Hx ETOH Abuse Thiamine 100mg po daily Prophylaxis: DVT ppx SCDs GI ppx: Protonix 40mg po As per Social Work Social work found placement but need further approval for transfer. Likely transfer this week pending guardian who will speak with case management today Medical Management discussed with Dr. Schumacher <Deanna Schumacher - Last Filed: 07/21/18 13:40> Objective - Vital Signs/Intake and Output Vital Signs (last 24 hours): Temp Pulse Resp BP Pulse Ox 97.9 F 94 H 20 123/86 76 L 07/21/18 06:00 07/21/18 06:00 07/21/18 06:00 07/21/18 06:00 07/21/18 06:00 Intake and Output: 07/21/18 07/21/18 06:59 18:59 Intake Total 120 Balance 120 - Medications Medications: Current Medications Docusate Sodium (Colace) 100 mg PO DAILY [facility] Last Admin: 07/21/18 09:15 Dose: 100 mg Ferrous Sulfate (Feosol Liq) 300 mg PO DAILY [facility] Last Admin: 07/21/18 09:17 Dose: 300 mg Insulin Human Lispro (Humalog) 0 units SC AC [facility]; Protocol Last Admin: 07/21/18 11:05 Dose: Not Given Metformin HCl (Glucophage) 500 mg PO BID [facility] Last Admin: 07/21/18 09:16 Dose: 500 mg - Labs Labs: 07/11/18 06:40 07/11/18 06:40 PT 12.5 SECONDS (9.4-12.5) 12/09/17 10:00 INR 1.09 (0.93-1.08) H 12/09/17 10:00 APTT 28.3 Seconds (25.1-36.5) 11/30/17 05:30 Attending/Attestation - Attestation I have personally seen and examined this patient.: Yes I have fully participated in the care of the patient.: Yes I have reviewed all pertinent clinical information, including history, physical exam and plan: Yes Notes (Text): 07/21/18 13:39 Medical record note made by the resident after discussion with my direction and input after the patient was personally seen and examined by me. I have reviewed the chart and agree that the record accurately reflects by personal performance of the history, physical exam, data review, and medical decision-making, in the course for the patient. I have also personally directed the plan of care.
--- NOTE | 2018-07-21 01:54 | PN ---
DATE: 07/20/2018 SUBJECTIVE: The patient is in bed, in no acute distress, was seen early this morning. PHYSICAL EXAMINATION: VITAL SIGNS: On exam, temperature is 97, blood pressure is 160/70, respiratory rate is 16. HEENT: Examination of HEENT is unremarkable. NECK: Supple. LUNGS: Have decreased breath sounds. HEART: Normal S1, S2. ABDOMEN: Soft. LABORATORY DATA: Laboratory examination reveals white count is 9.8, hemoglobin of 8. Chemistries are noted. Urinalysis is reviewed. Stool occult blood is positive and toxicology is noted. Serology, influenza A is positive from November. ASSESSMENT AND PLAN: A 57-year-old male with long hospital stay, who initially had sepsis secondary to Strep viridans and coag-negative staphylococcus bacteremia, right gluteal and back cellulitis and developed status post systemic inflammatory response syndrome, cultures negative. Currently off of antibiotics and found to have liver masses on ultrasound, health-care associated pneumonia,also influenza A, peripheral vascular disease, off of antibiotics, afebrile. Waiting for placement. The patient is at high risk for developing nosocomial infections. Daniel Torres MD
[2018-07-21] MEDS: Insulin Lispro 1 UNITS/0.01 ML SC SCH ×3 (07:30→16:56)
[2018-07-21] MEDS: Ferrous Sulfate 300 mg/5 mL Liq UD PO SCH (09:17)
--- NOTE | 2018-07-21 12:52 | CP.PCM.PN ---
Objective - Vital Signs/Intake and Output Vital Signs (last 24 hours): Temp Pulse Resp BP Pulse Ox 97.9 F 94 H 20 123/86 76 L 07/21/18 06:00 07/21/18 06:00 07/21/18 06:00 07/21/18 06:00 07/21/18 06:00 Intake and Output: 07/21/18 07/21/18 06:59 18:59 Intake Total 120 Balance 120 - Medications Medications: Current Medications Docusate Sodium (Colace) 100 mg PO DAILY [facility] Last Admin: 07/21/18 09:15 Dose: 100 mg Ferrous Sulfate (Feosol Liq) 300 mg PO DAILY [facility] Last Admin: 07/21/18 09:17 Dose: 300 mg Insulin Human Lispro (Humalog) 0 units SC [facility]; Protocol Last Admin: 07/21/18 11:05 Dose: Not Given Metformin HCl (Glucophage) 500 mg PO BID [facility] Last Admin: 07/21/18 09:16 Dose: 500 mg - Labs Labs: 07/11/18 06:40 07/11/18 06:40 PT 12.5 SECONDS (9.4-12.5) 12/09/17 10:00 INR 1.09 (0.93-1.08) H 12/09/17 10:00 APTT 28.3 Seconds (25.1-36.5) 11/30/17 05:30
--- NOTE | 2018-07-21 13:14 | CP.PCM.PN ---
<Debbie Matthews - Last Filed: 07/21/18 13:11> Subjective - Date & Time of Evaluation Date of Evaluation: 07/21/18 Time of Evaluation: 10:15 - Subjective Subjective: PGY-1 Debbie Thompsonem Medicine Progress Note for Dr. Schumacher's service Patient seen and examined at bedside. Patient offers no acute complaints. Patient denies chest pain, sob, n/v, constipation or diarrhea, abdominal pain, headaches. Objective - Vital Signs/Intake and Output Vital Signs (last 24 hours): Temp Pulse Resp BP Pulse Ox 97.9 F 94 H 20 123/86 76 L 07/21/18 06:00 07/21/18 06:00 07/21/18 06:00 07/21/18 06:00 07/21/18 06:00 Intake and Output: 07/21/18 07/21/18 06:59 18:59 Intake Total 120 Balance 120 - Medications Medications: Current Medications Docusate Sodium (Colace) 100 mg PO DAILY [facility] Last Admin: 07/21/18 09:15 Dose: 100 mg Ferrous Sulfate (Feosol Liq) 300 mg PO DAILY [facility] Last Admin: 07/21/18 09:17 Dose: 300 mg Insulin Human Lispro (Humalog) 0 units SC [facility]; Protocol Last Admin: 07/21/18 11:05 Dose: Not Given Metformin HCl (Glucophage) 500 mg PO BID [facility] Last Admin: 07/21/18 09:16 Dose: 500 mg - Labs Labs: 07/11/18 06:40 07/11/18 06:40 PT 12.5 SECONDS (9.4-12.5) 12/09/17 10:00 INR 1.09 (0.93-1.08) H 12/09/17 10:00 APTT 28.3 Seconds (25.1-36.5) 11/30/17 05:30 - Constitutional Appears: Non-toxic, No Acute Distress - Head Exam Head Exam: NORMAL INSPECTION, NORMOCEPHALIC - Eye Exam Eye Exam: EOMI, Normal appearance. absent: Nystagmus, Scleral icterus - ENT Exam ENT Exam: Mucous Membranes Moist - Respiratory Exam Respiratory Exam: Clear to Ausculation Bilateral, NORMAL BREATHING PATTERN. absent: Rales, Rhonchi, Wheezes - Cardiovascular Exam Cardiovascular Exam: REGULAR RHYTHM, +S1, +S2 - GI/Abdominal Exam GI & Abdominal Exam: Soft, Normal Bowel Sounds. absent: Distended, Firm, Guarding, Tenderness - Extremities Exam Extremities Exam: Normal Inspection. absent: Calf Tenderness, Pedal Edema - Neurological Exam Neurological Exam: Awake. absent: Oriented x3 - Psychiatric Exam Psychiatric exam: Flat Affect - Skin Skin Exam: Intact, Normal Color Assessment and Plan - Assessment and Plan (Free Text) Assessment: 58 y/o male with unknown PMHx admitted on 11/29/17 for AMS, right hip cellulitis, multifocal pneumonia, influenza A, strep viridians bacteremia with findings of stroke on MRI - acute vs. 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 Patient was treated for bacteremia with IV abx. Patient is stable, state guardianship approved. Pending placement per social work and guardianship Plan: HTN Lisinopril 10mg po daily Anemia Likely iron deficiency anemia Ferrous Sulfate 300mg po daily ; Colace 100mg po daily Colonic mass CT A/P showing colonic mass and hepatic lesions patient refused colonscopy Affective disorder Celexa 10mg po daily Altered mental status Patient is at baseline Aspirin 81mg po daily Dorsal Right Foot Ulcer Clean wound. no signs of infection. no treatment required Continue wound care Diabetes mellitus type 2 ISS low Accuchecks Metformin 500mg po bid Hx ETOH Abuse Thiamine 100mg po daily Prophylaxis: DVT ppx SCDs GI ppx: Protonix 40mg po As per Social Work Social work found placement but need further approval for transfer. Likely transfer this week pending guardian who will speak with case management today Medical Management discussed with Dr. Schumacher <Deanna Schumacher - Last Filed: 07/21/18 13:39> Objective - Vital Signs/Intake and Output Vital Signs (last 24 hours): Temp Pulse Resp BP Pulse Ox 97.9 F 94 H 20 123/86 76 L 07/21/18 06:00 07/21/18 06:00 07/21/18 06:00 07/21/18 06:00 07/21/18 06:00 Intake and Output: 07/21/18 07/21/18 06:59 18:59 Intake Total 120 Balance 120 - Medications Medications: Current Medications Docusate Sodium (Colace) 100 mg PO DAILY [facility] Last Admin: 07/21/18 09:15 Dose: 100 mg Ferrous Sulfate (Feosol Liq) 300 mg PO DAILY [facility] Last Admin: 07/21/18 09:17 Dose: 300 mg Insulin Human Lispro (Humalog) 0 units SC AC [facility]; Protocol Last Admin: 07/21/18 11:05 Dose: Not Given Metformin HCl (Glucophage) 500 mg PO BID [facility] Last Admin: 07/21/18 09:16 Dose: 500 mg - Labs Labs: 07/11/18 06:40 07/11/18 06:40 PT 12.5 SECONDS (9.4-12.5) 12/09/17 10:00 INR 1.09 (0.93-1.08) H 12/09/17 10:00 APTT 28.3 Seconds (25.1-36.5) 11/30/17 05:30 Attending/Attestation - Attestation I have personally seen and examined this patient.: Yes I have fully participated in the care of the patient.: Yes I have reviewed all pertinent clinical information, including history, physical exam and plan: Yes Notes (Text): 07/21/18 13:39 Medical record note made by the resident after discussion with my direction and input after the patient was personally seen and examined by me. I have reviewed the chart and agree that the record accurately reflects by personal performance of the history, physical exam, data review, and medical decision-making, in the course for the patient. I have also personally directed the plan of care. 57 years old male , S/P sepsis due to strep viridans and Cogulase negative bacteremia from right gluteal and back cellulitis, S/P multifocal HCAP on top of Influenza A infection and S/P Sammie infection of sacral area as well. Mental status is at base line. There is no active issue. Patient is awaiting placement. Prognosis is guarded.
--- NOTE | 2018-07-21 22:29 | PN ---
DATE: 07/21/2018 SUBJECTIVE: The patient is in bed, in no acute distress, was seen earlier. PHYSICAL EXAMINATION: VITAL SIGNS: On exam, temperature is 98, blood pressure is 120/70, respirations 16. HEENT: Examination of HEENT is unremarkable. NECK: Supple. LUNGS: Have decreased breath sounds. HEART: Normal S1, S2. ABDOMEN: Soft. LABORATORY DATA: Laboratory examination is reviewed. ASSESSMENT AND PLAN: A 57-year-old male with long hospital stay and initially admitted with sepsis with strep viridans and coag-negative staph bacteremia with right gluteal and back cellulitis, developed status post systemic inflammatory response syndrome. Cultures negative. Currently off of antibiotics and liver mass on ultrasound, healthcare-associated pneumonia, influenza, currently off of antibiotics. The patient is at risk for developing nosocomial infections. Daniel Torres MD
[2018-07-22] MEDS: Insulin Lispro 1 UNITS/0.01 ML SC SCH ×3 (07:51→17:12)
[2018-07-22] MEDS: Ferrous Sulfate 300 mg/5 mL Liq UD PO SCH (09:09)
--- NOTE | 2018-07-22 14:24 | CP.PCM.PN ---
<Debbie Matthews - Last Filed: 07/22/18 14:19> Subjective - Date & Time of Evaluation Date of Evaluation: 07/22/18 Time of Evaluation: 10:30 - Subjective Subjective: PGY-1 Medicine Progress Note for Dr. Schumacher's Service Patient seen and examined at bedside. Patient offers no acute complaints. Patient denies chest pain, sob, n/v, constipation or diarrhea, headaches, or dysuria. Objective - Vital Signs/Intake and Output Vital Signs (last 24 hours): Temp Pulse Resp BP Pulse Ox 98.3 F 91 H 20 94/47 L 96 07/22/18 06:00 07/22/18 06:00 07/22/18 06:00 07/22/18 06:00 07/22/18 06:00 Intake and Output: 07/22/18 07/22/18 06:59 18:59 Intake Total 240 Balance 240 - Medications Medications: Current Medications Docusate Sodium (Colace) 100 mg PO DAILY [facility] Last Admin: 07/22/18 09:09 Dose: 100 mg Ferrous Sulfate (Feosol Liq) 300 mg PO DAILY [facility] Last Admin: 07/22/18 09:09 Dose: 300 mg Insulin Human Lispro (Humalog) 0 units SC AC [facility]; Protocol Last Admin: 07/22/18 12:30 Dose: 1 units Metformin HCl (Glucophage) 500 mg PO BID [facility] Last Admin: 07/22/18 09:09 Dose: 500 mg - Labs Labs: 07/11/18 06:40 07/11/18 06:40 PT 12.5 SECONDS (9.4-12.5) 12/09/17 10:00 INR 1.09 (0.93-1.08) H 12/09/17 10:00 APTT 28.3 Seconds (25.1-36.5) 11/30/17 05:30 - Constitutional Appears: Non-toxic, No Acute Distress - Head Exam Head Exam: NORMAL INSPECTION, NORMOCEPHALIC - Eye Exam Eye Exam: Normal appearance. absent: Nystagmus, Scleral icterus - ENT Exam ENT Exam: Mucous Membranes Moist - Respiratory Exam Respiratory Exam: Clear to Ausculation Bilateral, NORMAL BREATHING PATTERN. absent: Rales, Rhonchi, Wheezes - Cardiovascular Exam Cardiovascular Exam: REGULAR RHYTHM, +S1, +S2. absent: Murmur - GI/Abdominal Exam GI & Abdominal Exam: Soft, Normal Bowel Sounds. absent: Distended, Firm, Guarding, Rigid, Tenderness - Extremities Exam Extremities Exam: Normal Inspection. absent: Pedal Edema - Neurological Exam Neurological Exam: Alert, Awake. absent: Oriented x3 - Psychiatric Exam Psychiatric exam: Normal Affect, Normal Mood - Skin Skin Exam: Intact, Normal Color Assessment and Plan - Assessment and Plan (Free Text) Assessment: 58 y/o male with unknown PMHx admitted on 11/29/17 for AMS, right hip cellulitis, multifocal pneumonia, influenza A, strep viridians bacteremia with findings of stroke on MRI - acute vs. 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 Patient was treated for bacteremia with IV abx. Patient is stable, state guardianship approved. Patient pending placement. Plan: HTN Lisinopril 10mg po daily Anemia Likely iron deficiency anemia Ferrous Sulfate 300mg po daily ; Colace 100mg po daily Colonic mass CT A/P showing colonic mass and hepatic lesions patient refused colonscopy Affective disorder Celexa 10mg po daily Altered mental status Patient is at baseline Aspirin 81mg po daily Dorsal Right Foot Ulcer Clean wound. no signs of infection. no treatment required Continue wound care Diabetes mellitus type 2 ISS low Accuchecks Metformin 500mg po bid Hx ETOH Abuse Thiamine 100mg po daily Prophylaxis: DVT ppx SCDs GI ppx: Protonix 40mg po As per Social Work Social work found placement but need further approval for transfer. Likely jesse cabrera this week pending guardian who will speak with case management today Medical Management discussed with Dr. Schumacher <Deanna Schumacher - Last Filed: 07/23/18 15:40> Objective - Vital Signs/Intake and Output Vital Signs (last 24 hours): Temp Pulse Resp BP Pulse Ox 98 F 85 19 118/77 95 07/23/18 08:19 07/23/18 08:19 07/23/18 08:19 07/23/18 08:19 07/23/18 08:19 Intake and Output: 07/23/18 07/23/18 06:59 18:59 Intake Total 0 Balance 0 - Medications Medications: Current Medications Docusate Sodium (Colace) 100 mg PO DAILY [facility] Last Admin: 07/23/18 09:39 Dose: 100 mg Ferrous Sulfate (Feosol Liq) 300 mg PO DAILY [facility] Last Admin: 07/23/18 09:39 Dose: 300 mg Insulin Human Lispro (Humalog) 0 units SC [facility]; Protocol Last Admin: 07/23/18 11:52 Dose: 1 units Metformin HCl (Glucophage) 500 mg PO BID [facility] Last Admin: 07/23/18 09:39 Dose: 500 mg - Labs Labs: 07/11/18 06:40 07/11/18 06:40 PT 12.5 SECONDS (9.4-12.5) 12/09/17 10:00 INR 1.09 (0.93-1.08) H 12/09/17 10:00 APTT 28.3 Seconds (25.1-36.5) 11/30/17 05:30 Attending/Attestation - Attestation I have personally seen and examined this patient.: Yes I have fully participated in the care of the patient.: Yes I have reviewed all pertinent clinical information, including history, physical exam and plan: Yes Notes (Text): 07/23/18 15:40 Medical record note made by the resident after discussion with my direction and input after the patient was personally seen and examined by me. I have reviewed the chart and agree that the record accurately reflects by personal performance of the history, physical exam, data review, and medical decision-making, in the course for the patient. I have also personally directed the plan of care.
--- NOTE | 2018-07-22 17:57 | CP.PCM.PN ---
Subjective - Date & Time of Evaluation Date of Evaluation: 07/22/18 Time of Evaluation: 08:30 - Subjective Subjective: No fevers, not in distress. Objective - Vital Signs/Intake and Output Vital Signs (last 24 hours): Temp Pulse Resp BP Pulse Ox 97.8 F 89 20 112/76 98 07/22/18 17:04 07/22/18 17:04 07/22/18 17:04 07/22/18 17:04 07/22/18 17:04 Intake and Output: 07/22/18 07/22/18 06:59 18:59 Intake Total 240 Balance 240 - Medications Medications: Current Medications Docusate Sodium (Colace) 100 mg PO DAILY [facility] Last Admin: 07/22/18 09:09 Dose: 100 mg Ferrous Sulfate (Feosol Liq) 300 mg PO DAILY [facility] Last Admin: 07/22/18 09:09 Dose: 300 mg Insulin Human Lispro (Humalog) 0 units SC [facility]; Protocol Last Admin: 07/22/18 17:12 Dose: Not Given Metformin HCl (Glucophage) 500 mg PO BID [facility] Last Admin: 07/22/18 17:15 Dose: 500 mg - Labs Labs: 07/11/18 06:40 07/11/18 06:40 PT 12.5 SECONDS (9.4-12.5) 12/09/17 10:00 INR 1.09 (0.93-1.08) H 12/09/17 10:00 APTT 28.3 Seconds (25.1-36.5) 11/30/17 05:30 - Constitutional Appears: Chronically Ill - Head Exam Head Exam: NORMAL INSPECTION - Respiratory Exam Respiratory Exam: Decreased Breath Sounds - Cardiovascular Exam Cardiovascular Exam: +S1, +S2 - GI/Abdominal Exam GI & Abdominal Exam: Soft. absent: Tenderness Assessment and Plan - Assessment and Plan (Free Text) Plan: Assessment S/P systemic inflammatory response syndrome, with no evidence of sepsis or infection, resolved S/P sepsis due to strep viridans and CoNS bacteremia from right gluteal and back cellulitis liver masses noted on ultrasound S/P multifocal HCAP on top of Influenza A infection S/P Sammie infection of sacral area as well peripheral vascular disease Plan continue to monitor clinically off antibiotics since he is at risk for healthcare-associated infections
[2018-07-23] MEDS: Insulin Lispro 1 UNITS/0.01 ML SC SCH ×3 (07:34→16:51)
[2018-07-23] MEDS: Ferrous Sulfate 300 mg/5 mL Liq UD PO SCH (09:39)
--- NOTE | 2018-07-23 12:59 | CP.PCM.PN ---
<Debbie Matthews - Last Filed: 07/23/18 12:57> Subjective - Date & Time of Evaluation Date of Evaluation: 07/23/18 Time of Evaluation: 09:30 - Subjective Subjective: PGY-1 Medicine Progress Note for Dr. Schumacher's Service Patient seen and examined at bedside. Patient offers no acute complaints. Patient denies chest pain, sob, n/v, constipation or diarrhea, headaches, or dysuria. Objective - Vital Signs/Intake and Output Vital Signs (last 24 hours): Temp Pulse Resp BP Pulse Ox 98 F 85 19 118/77 95 07/23/18 08:19 07/23/18 08:19 07/23/18 08:19 07/23/18 08:19 07/23/18 08:19 Intake and Output: 07/23/18 07/23/18 06:59 18:59 Intake Total 0 Balance 0 - Medications Medications: Current Medications Docusate Sodium (Colace) 100 mg PO DAILY [facility] Last Admin: 07/23/18 09:39 Dose: 100 mg Ferrous Sulfate (Feosol Liq) 300 mg PO DAILY [facility] Last Admin: 07/23/18 09:39 Dose: 300 mg Insulin Human Lispro (Humalog) 0 units SC AC [facility]; Protocol Last Admin: 07/23/18 11:52 Dose: 1 units Metformin HCl (Glucophage) 500 mg PO BID [facility] Last Admin: 07/23/18 09:39 Dose: 500 mg - Labs Labs: 07/11/18 06:40 07/11/18 06:40 PT 12.5 SECONDS (9.4-12.5) 12/09/17 10:00 INR 1.09 (0.93-1.08) H 12/09/17 10:00 APTT 28.3 Seconds (25.1-36.5) 11/30/17 05:30 - Additional Findings Additional findings: - Constitutional Appears: Non-toxic, No Acute Distress - Head Exam Head Exam: NORMAL INSPECTION, NORMOCEPHALIC - Eye Exam Eye Exam: Normal appearance. absent: Nystagmus, Scleral icterus - ENT Exam ENT Exam: Mucous Membranes Moist - Respiratory Exam Respiratory Exam: Clear to Ausculation Bilateral, NORMAL BREATHING PATTERN. absent: Rales, Rhonchi, Wheezes - Cardiovascular Exam Cardiovascular Exam: REGULAR RHYTHM, +S1, +S2. absent: Murmur - GI/Abdominal Exam GI & Abdominal Exam: Soft, Normal Bowel Sounds. absent: Distended, Firm, Guarding, Rigid, Tenderness - Extremities Exam Extremities Exam: Normal Inspection. absent: Pedal Edema - Neurological Exam Neurological Exam: Alert, Awake. absent: Oriented x3 - Psychiatric Exam Psychiatric exam: Normal Affect, Normal Mood - Skin Skin Exam: Intact, Normal Color Assessment and Plan - Assessment and Plan (Free Text) Assessment: 58 y/o male with unknown PMHx admitted on 11/29/17 for AMS, right hip cellulitis, multifocal pneumonia, influenza A, strep viridians bacteremia with findings of stroke on MRI - acute vs. 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 Patient was treated for bacteremia with IV abx. Patient is stable, state guardianship approved. Patient pending placement. Plan: HTN Lisinopril 10mg po daily Anemia Likely iron deficiency anemia Ferrous Sulfate 300mg po daily ; Colace 100mg po daily Colonic mass CT A/P showing colonic mass and hepatic lesions patient refused colonscopy Affective disorder Celexa 10mg po daily Altered mental status Patient is at baseline Aspirin 81mg po daily Dorsal Right Foot Ulcer Clean wound. no signs of infection. no treatment required Continue wound care Diabetes mellitus type 2 ISS low Accuchecks Metformin 500mg po bid Hx ETOH Abuse Thiamine 100mg po daily Prophylaxis: DVT ppx SCDs GI ppx: Protonix 40mg po As per Social Work Social work found placement but need further approval for transfer. Likely transfer this week pending guardian who will speak with case management today Medical Management discussed with Dr. Schumacher PGY-1 Debbie Matthews <Deanna Schumacher - Last Filed: 07/23/18 15:40> Objective - Vital Signs/Intake and Output Vital Signs (last 24 hours): Temp Pulse Resp BP Pulse Ox 98 F 85 19 118/77 95 07/23/18 08:19 07/23/18 08:19 07/23/18 08:19 07/23/18 08:19 07/23/18 08:19 Intake and Output: 07/23/18 07/23/18 06:59 18:59 Intake Total 0 Balance 0 - Medications Medications: Current Medications Docusate Sodium (Colace) 100 mg PO DAILY [facility] Last Admin: 07/23/18 09:39 Dose: 100 mg Ferrous Sulfate (Feosol Liq) 300 mg PO DAILY [facility] Last Admin: 07/23/18 09:39 Dose: 300 mg Insulin Human Lispro (Humalog) 0 units SC AC [facility]; Protocol Last Admin: 07/23/18 11:52 Dose: 1 units Metformin HCl (Glucophage) 500 mg PO BID [facility] Last Admin: 07/23/18 09:39 Dose: 500 mg - Labs Labs: 07/11/18 06:40 07/11/18 06:40 PT 12.5 SECONDS (9.4-12.5) 12/09/17 10:00 INR 1.09 (0.93-1.08) H 12/09/17 10:00 APTT 28.3 Seconds (25.1-36.5) 11/30/17 05:30 Attending/Attestation - Attestation I have personally seen and examined this patient.: Yes I have fully participated in the care of the patient.: Yes I have reviewed all pertinent clinical information, including history, physical exam and plan: Yes Notes (Text): 07/23/18 15:40 Medical record note made by the resident after discussion with my direction and input after the patient was personally seen and examined by me. I have reviewed the chart and agree that the record accurately reflects by personal performance of the history, physical exam, data review, and medical decision-making, in the course for the patient. I have also personally directed the plan of care.
--- NOTE | 2018-07-23 17:00 | CP.PCM.PN ---
Subjective - Date & Time of Evaluation Date of Evaluation: 07/23/18 Time of Evaluation: 13:05 - Subjective Subjective: No fevers, not in distress. Objective - Vital Signs/Intake and Output Vital Signs (last 24 hours): Temp Pulse Resp BP Pulse Ox 98 F 85 19 118/77 95 07/23/18 08:19 07/23/18 08:19 07/23/18 08:19 07/23/18 08:19 07/23/18 08:19 Intake and Output: 07/23/18 07/23/18 06:59 18:59 Intake Total 0 Balance 0 - Medications Medications: Current Medications Docusate Sodium (Colace) 100 mg PO DAILY [facility] Last Admin: 07/23/18 09:39 Dose: 100 mg Ferrous Sulfate (Feosol Liq) 300 mg PO DAILY [facility] Last Admin: 07/23/18 09:39 Dose: 300 mg Insulin Human Lispro (Humalog) 0 units SC AC [facility]; Protocol Last Admin: 07/23/18 11:52 Dose: 1 units Metformin HCl (Glucophage) 500 mg PO BID [facility] Last Admin: 07/23/18 09:39 Dose: 500 mg - Labs Labs: 07/11/18 06:40 07/11/18 06:40 PT 12.5 SECONDS (9.4-12.5) 12/09/17 10:00 INR 1.09 (0.93-1.08) H 12/09/17 10:00 APTT 28.3 Seconds (25.1-36.5) 11/30/17 05:30 - Constitutional Appears: Chronically Ill - Head Exam Head Exam: NORMAL INSPECTION - Cardiovascular Exam Cardiovascular Exam: +S1, +S2 - GI/Abdominal Exam GI & Abdominal Exam: Soft. absent: Tenderness Assessment and Plan - Assessment and Plan (Free Text) Plan: Assessment S/P systemic inflammatory response syndrome, with no evidence of sepsis or infection, resolved S/P sepsis due to strep viridans and CoNS bacteremia from right gluteal and back cellulitis liver masses noted on ultrasound S/P multifocal HCAP on top of Influenza A infection S/P Sammie infection of sacral area as well peripheral vascular disease Plan continue to monitor clinically off antibiotics since he is at risk for nosocomial infections
--- NOTE | 2018-07-24 06:27 | CP.PCM.PN ---
<Debbei Matthews - Last Filed: 07/24/18 13:21> Subjective - Date & Time of Evaluation Date of Evaluation: 07/24/18 Time of Evaluation: 10:00 - Subjective Subjective: PGY-1 Medicine Progress Note for Dr. Schumacher's Service Patient seen and examined at bedside. Patient offers no acute complaints. Patient denies chest pain, sob, n/v, constipation or diarrhea, headaches, or dysuria. Objective - Vital Signs/Intake and Output Vital Signs (last 24 hours): Temp Pulse Resp BP Pulse Ox 97.8 F 81 20 105/72 95 07/23/18 18:00 07/23/18 18:00 07/23/18 18:00 07/23/18 18:00 07/23/18 18:00 Intake and Output: 07/23/18 07/24/18 18:59 06:59 Intake Total 1080 Balance 1080 - Medications Medications: Current Medications Docusate Sodium (Colace) 100 mg PO DAILY [facility] Last Admin: 07/23/18 09:39 Dose: 100 mg Ferrous Sulfate (Feosol Liq) 300 mg PO DAILY [facility] Last Admin: 07/23/18 09:39 Dose: 300 mg Insulin Human Lispro (Humalog) 0 units SC AC [facility]; Protocol Last Admin: 07/23/18 16:51 Dose: Not Given Metformin HCl (Glucophage) 500 mg PO BID [facility] Last Admin: 07/23/18 17:18 Dose: 500 mg - Labs Labs: 07/11/18 06:40 07/11/18 06:40 PT 12.5 SECONDS (9.4-12.5) 12/09/17 10:00 INR 1.09 (0.93-1.08) H 12/09/17 10:00 APTT 28.3 Seconds (25.1-36.5) 11/30/17 05:30 - Additional Findings Additional findings: - Constitutional Appears: Non-toxic, No Acute Distress - Head Exam Head Exam: NORMAL INSPECTION, NORMOCEPHALIC - Eye Exam Eye Exam: Normal appearance. absent: Nystagmus, Scleral icterus - ENT Exam ENT Exam: Mucous Membranes Moist - Respiratory Exam Respiratory Exam: Clear to Ausculation Bilateral, NORMAL BREATHING PATTERN. absent: Rales, Rhonchi, Wheezes - Cardiovascular Exam Cardiovascular Exam: REGULAR RHYTHM, +S1, +S2. absent: Murmur - GI/Abdominal Exam GI & Abdominal Exam: Soft, Normal Bowel Sounds. absent: Distended, Firm, Guarding, Rigid, Tenderness - Extremities Exam Extremities Exam: Normal Inspection. absent: Pedal Edema - Neurological Exam Neurological Exam: Alert, Awake. absent: Oriented x3 - Psychiatric Exam Psychiatric exam: Normal Affect, Normal Mood - Skin Skin Exam: Intact, Normal Color Assessment and Plan - Assessment and Plan (Free Text) Assessment: 58 y/o male with unknown PMHx admitted on 11/29/17 for AMS, right hip cellulitis, multifocal pneumonia, influenza A, strep viridians bacteremia with findings of stroke on MRI - acute vs. 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 Patient was treated for bacteremia with IV abx. Patient is stable, state guardianship approved. Patient pending placement. Plan: HTN Lisinopril 10mg po daily Anemia Likely iron deficiency anemia Ferrous Sulfate 300mg po daily ; Colace 100mg po daily Colonic mass CT A/P showing colonic mass and hepatic lesions patient refused colonscopy Affective disorder Celexa 10mg po daily Altered mental status Patient is at baseline Aspirin 81mg po daily Dorsal Right Foot Ulcer Clean wound. no signs of infection. no treatment required Continue wound care Diabetes mellitus type 2 ISS low Accuchecks Metformin 500mg po bid Hx ETOH Abuse Thiamine 100mg po daily Prophylaxis: DVT ppx SCDs GI ppx: Protonix 40mg po As per Social Work Pending placement. Guardianship approved. Medical Management discussed with Dr. Schumacher PGY-1 Debbie Matthews <Deanna Schumacher - Last Filed: 07/24/18 16:12> Objective - Vital Signs/Intake and Output Vital Signs (last 24 hours): Temp Pulse Resp BP Pulse Ox 98.1 F 90 18 115/76 94 L 07/24/18 08:17 07/24/18 08:17 07/24/18 08:17 07/24/18 08:17 07/24/18 08:17 Intake and Output: 07/24/18 07/24/18 06:59 18:59 Intake Total 240 Balance 240 - Medications Medications: Current Medications Docusate Sodium (Colace) 100 mg PO DAILY [facility] Last Admin: 07/24/18 09:11 Dose: 100 mg Ferrous Sulfate (Feosol Liq) 300 mg PO DAILY [facility] Last Admin: 07/24/18 09:11 Dose: 300 mg Insulin Human Lispro (Humalog) 0 units SC AC [facility]; Protocol Last Admin: 07/24/18 11:53 Dose: 1 units Metformin HCl (Glucophage) 500 mg PO BID [facility] Last Admin: 07/24/18 09:12 Dose: 500 mg - Labs Labs: 07/11/18 06:40 07/11/18 06:40 PT 12.5 SECONDS (9.4-12.5) 12/09/17 10:00 INR 1.09 (0.93-1.08) H 12/09/17 10:00 APTT 28.3 Seconds (25.1-36.5) 11/30/17 05:30 Attending/Attestation - Attestation I have personally seen and examined this patient.: Yes I have fully participated in the care of the patient.: Yes I have reviewed all pertinent clinical information, including history, physical exam and plan: Yes Notes (Text): 07/24/18 16:12 Medical record note made by the resident after discussion with my direction and input after the patient was personally seen and examined by me. I have reviewed the chart and agree that the record accurately reflects by personal performance of the history, physical exam, data review, and medical decision-making, in the course for the patient. I have also personally directed the plan of care. 57 years old male , S/P sepsis due to strep viridans and Cogulase negative bacteremia from right gluteal and back cellulitis, S/P multifocal HCAP on top of Influenza A infection and S/P Sammie infection of sacral area as well. Mental status is at base line, Patient is awaiting for placement
[2018-07-24] MEDS: Insulin Lispro 1 UNITS/0.01 ML SC SCH ×2 (08:22→11:53)
[2018-07-24] MEDS: Ferrous Sulfate 300 mg/5 mL Liq UD PO SCH (09:11)
--- NOTE | 2018-07-24 16:03 | CP.PCM.PN ---
Subjective - Date & Time of Evaluation Date of Evaluation: 07/24/18 Time of Evaluation: 10:20 - Subjective Subjective: Afebrile, not in distress. Objective - Vital Signs/Intake and Output Vital Signs (last 24 hours): Temp Pulse Resp BP Pulse Ox 98.1 F 90 18 115/76 94 L 07/24/18 08:17 07/24/18 08:17 07/24/18 08:17 07/24/18 08:17 07/24/18 08:17 Intake and Output: 07/24/18 07/24/18 06:59 18:59 Intake Total 240 Balance 240 - Medications Medications: Current Medications Docusate Sodium (Colace) 100 mg PO DAILY [facility] Last Admin: 07/23/18 09:39 Dose: 100 mg Ferrous Sulfate (Feosol Liq) 300 mg PO DAILY [facility] Last Admin: 07/23/18 09:39 Dose: 300 mg Insulin Human Lispro (Humalog) 0 units SC [facility]; Protocol Last Admin: 07/24/18 08:22 Dose: Not Given Metformin HCl (Glucophage) 500 mg PO BID [facility] Last Admin: 07/23/18 17:18 Dose: 500 mg - Labs Labs: 07/11/18 06:40 07/11/18 06:40 PT 12.5 SECONDS (9.4-12.5) 12/09/17 10:00 INR 1.09 (0.93-1.08) H 12/09/17 10:00 APTT 28.3 Seconds (25.1-36.5) 11/30/17 05:30 - Constitutional Appears: No Acute Distress, Chronically Ill - Head Exam Head Exam: NORMAL INSPECTION - Respiratory Exam Respiratory Exam: Decreased Breath Sounds - Cardiovascular Exam Cardiovascular Exam: +S1, +S2 - GI/Abdominal Exam GI & Abdominal Exam: Soft. absent: Tenderness Assessment and Plan - Assessment and Plan (Free Text) Plan: Assessment S/P systemic inflammatory response syndrome, with no evidence of sepsis or infection, resolved S/P sepsis due to strep viridans and CoNS bacteremia from right gluteal and back cellulitis liver masses noted on ultrasound S/P multifocal HCAP on top of Influenza A infection S/P Sammie infection of sacral area as well peripheral vascular disease Plan continue to monitor clinically off antibiotics since he is at risk for hospital- acquired infections
[2018-07-25 06:29] LABS: BASO # 0.03 K/mm3 (0.0-2.0); BASO % 0.3 % (0.0-3.0); EOS # 0.2 (0.0-0.7); EOS % 2.5 % (1.5-5.0); GRAN # 5.87 (1.4-6.5); GRAN % 62.1 % (50.0-68.0); HEMOGLOBIN 8.4 g/dL (14.0-18.0); LYMPH # 2.4 (1.2-3.4); LYMPH % 25.1 % (22.0-35.0); MEAN CELL VOLUME 71.7 fl (80.0-105.0); MEAN CORPUSCULAR HEMOGLOBIN 21.8 pg (25.0-35.0); MEAN CORPUSCULAR HGB CONC 30.4 g/dl (31.0-37.0); MEAN PLATELET VOLUME 8.9 fl (7.0-11.0); RBC 3.85 10^6/uL (3.5-6.1); RED CELL DISTRIBUTION WIDTH 15.7 % (11.5-14.5); WHITE BLOOD COUNT 9.5 10^3/ul (4.5-11.0)
[2018-07-25 07:23] LABS: ALBUMIN 3.6 g/dL (3.0-4.8); ALT/SGPT 17 U/L (7-56); AST/SGOT 36 U/L (17-59); BLOOD UREA NITROGEN 18 mg/dL (7-21); CALCIUM 9.3 mg/dL (8.4-10.5); GFR NON-AFRICAN AMERICAN > 60
[2018-07-25] MEDS: Insulin Lispro 1 UNITS/0.01 ML SC SCH ×3 (09:41→17:05)
[2018-07-25] MEDS: Ferrous Sulfate 300 mg/5 mL Liq UD PO SCH (09:41)
--- NOTE | 2018-07-25 19:18 | CP.PCM.PN ---
Subjective - Date & Time of Evaluation Date of Evaluation: 07/25/18 Time of Evaluation: 19:17 - Subjective Subjective: Pt seen and examined, no now new complaints at this time Objective - Vital Signs/Intake and Output Vital Signs (last 24 hours): Temp Pulse Resp BP Pulse Ox 98.4 F 96 H 20 134/70 95 07/25/18 16:42 07/25/18 16:42 07/25/18 16:42 07/25/18 16:42 07/25/18 16:42 - Medications Medications: Current Medications Docusate Sodium (Colace) 100 mg PO DAILY [facility] Last Admin: 07/25/18 09:40 Dose: 100 mg Ferrous Sulfate (Feosol Liq) 300 mg PO DAILY [facility] Last Admin: 07/25/18 09:41 Dose: 300 mg Insulin Human Lispro (Humalog) 0 units SC AC [facility]; Protocol Last Admin: 07/25/18 17:05 Dose: 1 units Metformin HCl (Glucophage) 500 mg PO BID [facility] Last Admin: 07/25/18 17:08 Dose: 500 mg - Labs Labs: 07/25/18 06:10 07/25/18 06:10 PT 12.5 SECONDS (9.4-12.5) 12/09/17 10:00 INR 1.09 (0.93-1.08) H 12/09/17 10:00 APTT 28.3 Seconds (25.1-36.5) 11/30/17 05:30 - Constitutional Appears: No Acute Distress - Head Exam Head Exam: ATRAUMATIC - Eye Exam Eye Exam: Normal appearance - ENT Exam ENT Exam: Mucous Membranes Moist - Respiratory Exam Respiratory Exam: NORMAL BREATHING PATTERN - Cardiovascular Exam Cardiovascular Exam: RRR - GI/Abdominal Exam GI & Abdominal Exam: Normal Bowel Sounds Assessment and Plan - Assessment and Plan (Free Text) Assessment: 58 y/o male with unknown PMHx admitted on 11/29/17 for AMS, right hip cellulitis, multifocal pneumonia, influenza A, strep viridians bacteremia with findings of stroke on MRI - acute vs. 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 Patient was treated for bacteremia with IV abx. Patient is stable, state guardianship approved. Patient pending placement. Plan: Colonic mass CT A/P showing colonic mass and hepatic lesions patient refused colonscopy HTN Lisinopril 10mg po daily Anemia Likely iron deficiency anemia Ferrous Sulfate 300mg po daily ; Colace 100mg po daily Affective disorder Celexa 10mg po daily Altered mental status Patient is at baseline Aspirin 81mg po daily Hx ETOH Abuse Thiamine 100mg po daily Dorsal Right Foot Ulcer Clean wound. no signs of infection. no treatment required Continue wound care Diabetes mellitus type 2 ISS low Accuchecks Metformin 500mg po bid Prophylaxis: DVT ppx SCDs GI ppx: Protonix 40mg po As per Social Work Pending placement. Guardianship approved. Pt seen, examined, assessment and plan discussed with Dr Johnny Reeves PGY1
--- NOTE | 2018-07-25 20:58 | CP.PCM.PN ---
Subjective - Date & Time of Evaluation Date of Evaluation: 07/25/18 Time of Evaluation: 10:30 - Subjective Subjective: Afebrile, comfortable. Objective - Vital Signs/Intake and Output Vital Signs (last 24 hours): Temp Pulse Resp BP Pulse Ox 98.4 F 96 H 20 134/70 95 07/25/18 16:42 07/25/18 16:42 07/25/18 16:42 07/25/18 16:42 07/25/18 16:42 - Medications Medications: Current Medications Docusate Sodium (Colace) 100 mg PO DAILY [facility] Last Admin: 07/25/18 09:40 Dose: 100 mg Ferrous Sulfate (Feosol Liq) 300 mg PO DAILY [facility] Last Admin: 07/25/18 09:41 Dose: 300 mg Insulin Human Lispro (Humalog) 0 units SC AC [facility]; Protocol Last Admin: 07/25/18 17:05 Dose: 1 units Metformin HCl (Glucophage) 500 mg PO BID [facility] Last Admin: 07/25/18 17:08 Dose: 500 mg - Labs Labs: 07/25/18 06:10 07/25/18 06:10 PT 12.5 SECONDS (9.4-12.5) 12/09/17 10:00 INR 1.09 (0.93-1.08) H 12/09/17 10:00 APTT 28.3 Seconds (25.1-36.5) 11/30/17 05:30 - Constitutional Appears: No Acute Distress, Chronically Ill - Head Exam Head Exam: NORMAL INSPECTION - Respiratory Exam Respiratory Exam: Decreased Breath Sounds - Cardiovascular Exam Cardiovascular Exam: +S1, +S2 - GI/Abdominal Exam GI & Abdominal Exam: Soft. absent: Tenderness Assessment and Plan - Assessment and Plan (Free Text) Assessment: Assessment S/P systemic inflammatory response syndrome, with no evidence of sepsis or infection, resolved S/P sepsis due to strep viridans and CoNS bacteremia from right gluteal and back cellulitis liver masses noted on ultrasound S/P multifocal HCAP on top of Influenza A infection S/P Sammie infection of sacral area as well peripheral vascular disease Plan continue to monitor clinically off antibiotics since he is at risk for healthcare-associated infections
--- NOTE | 2018-07-26 06:02 | CP.PCM.PN ---
Subjective - Date & Time of Evaluation Date of Evaluation: 07/26/18 Time of Evaluation: 06:01 - Subjective Subjective: Pt seen and examined at bedside this morning. Pt denies chest pain, SOB Objective - Vital Signs/Intake and Output Vital Signs (last 24 hours): Temp Pulse Resp BP Pulse Ox 98.4 F 96 H 20 134/70 95 07/25/18 16:42 07/25/18 16:42 07/25/18 16:42 07/25/18 16:42 07/25/18 16:42 - Medications Medications: Current Medications Docusate Sodium (Colace) 100 mg PO DAILY [facility] Last Admin: 07/25/18 09:40 Dose: 100 mg Ferrous Sulfate (Feosol Liq) 300 mg PO DAILY [facility] Last Admin: 07/25/18 09:41 Dose: 300 mg Insulin Human Lispro (Humalog) 0 units SC [facility]; Protocol Last Admin: 07/25/18 17:05 Dose: 1 units Metformin HCl (Glucophage) 500 mg PO BID [facility] Last Admin: 07/25/18 17:08 Dose: 500 mg - Labs Labs: 07/25/18 06:10 07/25/18 06:10 PT 12.5 SECONDS (9.4-12.5) 12/09/17 10:00 INR 1.09 (0.93-1.08) H 12/09/17 10:00 APTT 28.3 Seconds (25.1-36.5) 11/30/17 05:30 - Constitutional Appears: No Acute Distress - Head Exam Head Exam: ATRAUMATIC, NORMOCEPHALIC - ENT Exam ENT Exam: Mucous Membranes Moist - Respiratory Exam Respiratory Exam: Clear to Ausculation Bilateral, NORMAL BREATHING PATTERN - Cardiovascular Exam Cardiovascular Exam: RRR - GI/Abdominal Exam GI & Abdominal Exam: Normal Bowel Sounds - Neurological Exam Neurological Exam: Awake Assessment and Plan - Assessment and Plan (Free Text) Assessment: Pt is a 58 yo male with unknown PMH admitted on 11/29/17 for AMS, right hip cellulitis, multifocal pneumonia, influenza A, strep viridians bacteremia with findings of stroke on MRI - acute vs. 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 Patient was treated for bacteremia with IV abx. Patient is sta ble, state guardianship approved. Patient pending placement. Plan: Colonic mass - CT A/P showing colonic mass and hepatic lesions - patient refusing colonscopy HTN - Lisinopril 10mg po daily Anemia - Likely iron deficiency anemia - Ferrous Sulfate 300mg PO daily - Colace 100mg PO daily - follow up CBC for tomorrow Hx ETOH Abuse - Thiamine 100mg po daily Dorsal Right Foot Ulcer - Clean wound - no signs of infection - no treatment required - Continue wound care Diabetes mellitus type 2 - ISS low - Accuchecks - Metformin 500mg po bid Altered mental status - Patient is at baseline - Aspirin 81mg po daily Affective disorder - Celexa 10mg po daily Ppx - SCDs - Protonix 40mg po As per Social Work - Pending placement. Guardianship approved. Pt seen, examined, assessment and plan discussed with Dr Johnny Reeves PGY1 Internal Medicine Resident
[2018-07-26 08:42] VITALS: RESP 19
[2018-07-26] MEDS: Ferrous Sulfate 300 mg/5 mL Liq UD PO SCH (09:38)
[2018-07-26] MEDS: Insulin Lispro 1 UNITS/0.01 ML SC SCH ×3 (09:39→17:17)
--- NOTE | 2018-07-26 12:34 | CP.PCM.PN ---
Subjective - Date & Time of Evaluation Date of Evaluation: 07/26/18 Time of Evaluation: 11:25 - Subjective Subjective: Comfortable in bed, no fevers. Objective - Vital Signs/Intake and Output Vital Signs (last 24 hours): Temp Pulse Resp BP Pulse Ox 97.9 F 86 19 125/82 97 07/26/18 08:41 07/26/18 08:41 07/26/18 08:41 07/26/18 08:41 07/26/18 08:41 - Medications Medications: Current Medications Docusate Sodium (Colace) 100 mg PO DAILY [facility] Last Admin: 07/26/18 09:38 Dose: 100 mg Ferrous Sulfate (Feosol Liq) 300 mg PO DAILY [facility] Last Admin: 07/26/18 09:38 Dose: 300 mg Insulin Human Lispro (Humalog) 0 units SC [facility]; Protocol Last Admin: 07/26/18 11:45 Dose: Not Given Metformin HCl (Glucophage) 500 mg PO BID [facility] Last Admin: 07/26/18 09:38 Dose: 500 mg - Labs Labs: 07/25/18 06:10 07/25/18 06:10 PT 12.5 SECONDS (9.4-12.5) 12/09/17 10:00 INR 1.09 (0.93-1.08) H 12/09/17 10:00 APTT 28.3 Seconds (25.1-36.5) 11/30/17 05:30 - Constitutional Appears: No Acute Distress, Chronically Ill - Head Exam Head Exam: NORMAL INSPECTION - Respiratory Exam Respiratory Exam: Decreased Breath Sounds - Cardiovascular Exam Cardiovascular Exam: +S1, +S2 - GI/Abdominal Exam GI & Abdominal Exam: Soft. absent: Tenderness Assessment and Plan - Assessment and Plan (Free Text) Plan: Assessment S/P systemic inflammatory response syndrome, with no evidence of sepsis or infection, resolved S/P sepsis due to strep viridans and CoNS bacteremia from right gluteal and back cellulitis liver masses noted on ultrasound S/P multifocal HCAP on top of Influenza A infection S/P Sammie infection of sacral area as well peripheral vascular disease Plan continue to monitor clinically off antibiotics since he is at risk for nosocomial infections
--- NOTE | 2018-07-26 17:52 | CP.PCM.DIS ---
Provider - Provider Date of Admission: 11/29/17 12:21 Attending physician: Deanna Schumacher MD Time Spent in preparation of Discharge (in minutes): 45 Diagnosis - Discharge Diagnosis (1) Colorectal cancer Status: Acute Priority: High (2) Anemia Status: Chronic Priority: Medium (3) Diabetes Status: Chronic Priority: Medium Hospital Course - Lab Results Lab Results: Micro Results 05/18/18 09:00 Blood Blood Culture - Final NO GROWTH AFTER 5 DAYS 05/18/18 09:00 Blood Gram Stain - Final TEST NOT PERFORMED 05/18/18 08:30 Blood Blood Culture - Final NO GROWTH AFTER 5 DAYS 05/18/18 08:30 Blood Gram Stain - Final TEST NOT PERFORMED 05/18/18 18:24 Urine Urine Culture - Final 10-50,000 CFU/ML. MULTIPLE SPECIES. PROBABLE CONTAMINATION. 02/11/18 23:28 Stool Stool Culture - Final NO SALMONELLA, SHIGELLA OR CAMPYLOBACTER ISOLATED. 11/29/17 11:25 Blood-Venous Blood Culture - Final Coagulase Neg Staphylococcus Streptococcus Mitis 11/29/17 11:25 Blood-Venous Gram Stain - Final 12/04/17 01:20 Blood Blood Culture - Final NO GROWTH AFTER 5 DAYS 12/04/17 01:20 Blood Gram Stain - Final TEST NOT PERFORMED 12/04/17 01:00 Blood Blood Culture - Final NO GROWTH AFTER 5 DAYS 12/04/17 01:00 Blood Gram Stain - Final TEST NOT PERFORMED 12/07/17 19:55 Stool C. difficile Antigen & Toxin A,B (M - Final 12/05/17 22:55 Stool Stool Culture - Final NO SALMONELLA, SHIGELLA OR CAMPYLOBACTER ISOLATED. 12/05/17 22:55 Stool C. difficile Antigen & Toxin A,B (M - Final 12/04/17 23:50 Urine,Catheterized Urine Culture - Final No Growth (<1,000 CFU/ML) 11/30/17 22:01 Blood Blood Culture - Final NO GROWTH AFTER 5 DAYS 11/30/17 22:01 Blood Gram Stain - Final TEST NOT PERFORMED 11/30/17 22:01 Blood Blood Culture - Final NO GROWTH AFTER 5 DAYS 11/30/17 22:01 Blood Gram Stain - Final TEST NOT PERFORMED 11/29/17 10:57 Blood-Venous S.aureus & Coag-Neg Staph PNA FISH - Final 11/29/17 10:57 Blood-Venous Blood Culture - Final Coagulase Neg Staphylococcus Streptococcus Viridans 11/29/17 10:57 Blood-Venous Gram Stain - Final Most Recent Lab Values WBC 9.5 10^3/ul (4.5-11.0) 07/25/18 06:10 RBC 3.85 10^6/uL (3.5-6.1) 07/25/18 06:10 Hgb 8.4 g/dL (14.0-18.0) L 07/25/18 06:10 Hct 27.6 % (42.0-52.0) L 07/25/18 06:10 MCV 71.7 fl (80.0-105.0) L 07/25/18 06:10 MCH 21.8 pg (25.0-35.0) L 07/25/18 06:10 MCHC 30.4 g/dl (31.0-37.0) L 07/25/18 06:10 RDW 15.7 % (11.5-14.5) H 07/25/18 06:10 Plt Count 471 10^3/uL (120.0-450.0) H 07/25/18 06:10 MPV 8.9 fl (7.0-11.0) 07/25/18 06:10 Gran % 62.1 % (50.0-68.0) 07/25/18 06:10 Lymph % (Auto) 25.1 % (22.0-35.0) 07/25/18 06:10 [place] % (Auto) 10.0 % (1.0-6.0) H 07/25/18 06:10 Eos % (Auto) 2.5 % (1.5-5.0) 07/25/18 06:10 Baso % (Auto) 0.3 % (0.0-3.0) 07/25/18 06:10 Gran # 5.87 (1.4-6.5) 07/25/18 06:10 Lymph # (Auto) 2.4 (1.2-3.4) 07/25/18 06:10 [place] # (Auto) 1.0 (0.1-0.6) H 07/25/18 06:10 Eos # (Auto) 0.2 (0.0-0.7) 07/25/18 06:10 Baso # (Auto) 0.03 K/mm3 (0.0-2.0) 07/25/18 06:10 ESR 66 mm/hr (0.00-15.0) H 05/11/18 06:20 Retic Count 1.30 % (0.5-1.5) 05/26/18 06:30 PT 12.5 SECONDS (9.4-12.5) 12/09/17 10:00 INR 1.09 (0.93-1.08) H 12/09/17 10:00 APTT 28.3 Seconds (25.1-36.5) 11/30/17 05:30 pO2 82 mm/Hg (30-55) H 11/29/17 14:20 VBG pH 7.42 (7.32-7.43) 11/29/17 14:20 VBG pCO2 36.0 (40-60) L 11/29/17 14:20 VBG HCO3 23.4 mmol/l (21-28) 11/29/17 14:20 VBG Total CO2 24.5 mmol.L (22-28) 11/29/17 14:20 VBG O2 Sat (Calc) 96.0 % (40-65) H 11/29/17 14:20 VBG Base Excess -0.7 mmol/L (0.0-2.0) L 11/29/17 14:20 VBG Potassium 4.0 mmol/L (3.6-5.2) 11/29/17 14:20 Sodium 143.0 mmol/L (132-148) 11/29/17 14:20 Chloride 108.0 mmol/L (98-107) H 11/29/17 14:20 Glucose 468 mg/dl (75-110) H* 11/29/17 14:20 Lactate 1.9 mmol/L (0.7-2.1) 11/29/17 14:20 FiO2 21.0 % 11/29/17 14:20 Sodium 138 mmol/L (132-148) 07/25/18 06:10 Potassium 4.3 mmol/L (3.6-5.0) 07/25/18 06:10 Chloride 103 mmol/L (98-107) 07/25/18 06:10 Carbon Dioxide 27 mmol/L (21-33) 07/25/18 06:10 Anion Gap 12 (10-20) 07/25/18 06:10 BUN 18 mg/dL (7-21) 07/25/18 06:10 Creatinine 0.5 mg/dl (0.8-1.5) L 07/25/18 06:10 Est GFR ( Amer) > 60 07/25/18 06:10 Est GFR (Non-Af Amer) > 60 07/25/18 06:10 POC Glucose (mg/dL) 148 mg/dL (65-110) H 07/26/18 16:55 Random Glucose 112 mg/dL (70-110) H 07/25/18 06:10 Hemoglobin A1c 7.3 % (4.2-6.5) H 05/25/18 07:00 Calcium 9.3 mg/dL (8.4-10.5) 07/25/18 06:10 Phosphorus 3.8 mg/dL (2.5-4.5) 07/11/18 06:40 Magnesium 2.0 mg/dL (1.7-2.2) 07/11/18 06:40 Iron 36 ug/dL (45-180) L 05/25/18 11:25 TIBC 331 ug/dL (261-462) 05/25/18 11:25 % Saturation 11 % (20-55) L 05/25/18 11:25 Ferritin 35.4 ng/mL 05/25/18 11:25 Total Bilirubin 0.2 mg/dL (0.2-1.3) 07/25/18 06:10 AST 36 U/L (17-59) 07/25/18 06:10 ALT 17 U/L (7-56) 07/25/18 06:10 Alkaline Phosphatase 167 U/L (38-126) H 07/25/18 06:10 Ammonia < 9 umol/L (9-33) L 11/29/17 14:20 Lactate Dehydrogenase 324 U/L (333-699) L 11/30/17 01:40 Total Creatine Kinase < 20 U/L (35-230) L 01/24/18 09:00 Troponin I 0.02 ng/mL 11/30/17 01:40 C-Reactive Protein 41.80 mg/L (0.0-9.9) H 05/11/18 06:20 C-React Prot High Sens 8.31 mg/L (1.00-3.00) H 01/24/18 09:00 NT-Pro-B Natriuret Pep 1800 pg/mL (0-450) H 12/07/17 06:15 Total Protein 7.0 g/dL (5.8-8.3) 07/25/18 06:10 Albumin 3.6 g/dL (3.0-4.8) 07/25/18 06:10 Globulin 3.5 gm/dL 07/25/18 06:10 Albumin/Globulin Ratio 1.0 (1.1-1.8) L 07/25/18 06:10 Triglycerides 146 mg/dL (35-160) 12/02/17 06:30 Cholesterol 133 mg/dL (130-200) 12/02/17 06:30 LDL Cholesterol Direct 76 mg/dL (0-129) 12/02/17 06:30 HDL Cholesterol 26 mg/dL (29-60) L 12/02/17 06:30 Alpha Fetoprotein 1.0 ng/mL (0.0-7.5) 12/06/17 12:15 Carcinoembryonic Ag 32.2 ng/mL (0.0-3.0) H 12/06/17 12:15 Vitamin B6 38.4 ng/mL (2.1-21.7) H 02/14/18 11:08 Vitamin B12 374 pg/mL (239-931) 02/14/18 11:08 Folate > 20.0 ng/mL 02/14/18 11:08 Procalcitonin 0.41 NG/ML (0.19-0.49) 05/18/18 08:30 TSH 3rd Generation 1.96 mIU/mL (0.46-4.68) 02/23/18 06:00 Venous Blood Potassium 4.0 mmol/L (3.6-5.2) 11/29/17 14:20 Urine Color Yellow (YELLOW) 05/18/18 18:25 Urine Appearance Clear (CLEAR) 05/18/18 18:25 Urine pH 6.0 (4.7-8.0) 05/18/18 18:25 Ur Specific [place] >= 1.030 (1.005-1.035) 05/18/18 18:25 Urine Protein Negative mg/dL (<30 mg/dL) 05/18/18 18:25 Urine Glucose (UA) Negative mg/dL (NEGATIVE) 05/18/18 18:25 Urine Ketones Negative mg/dL (NEGATIVE) 05/18/18 18:25 Urine Blood Negative (NEGATIVE) 05/18/18 18:25 Urine Nitrate Negative (NEGATIVE) 05/18/18 18:25 Urine Bilirubin Negative (NEGATIVE) 05/18/18 18:25 Urine Urobilinogen 0.2 E.U./dL (<1 E.U./dL) 05/18/18 18:25 Ur Leukocyte Esterase Negative [place]/uL (NEGATIVE) 05/18/18 18:25 Stool Sodium Cancelled 02/08/18 23:44 Stool Potassium Cancelled 02/08/18 23:44 Stool Chloride Cancelled 02/08/18 23:44 Stool Occult Blood Positive (NEGATIVE) H 06/16/18 05:30 Stool Leukocytes, Qual Negative (NEGATIVE) 02/08/18 23:44 Vancomycin Trough 10.3 ug/mL (5.0-10.0) H 12/04/17 13:00 Salicylates < 1 mg/dL (2.0-20.0) L 11/29/17 10:57 Acetaminophen < 10.0 ug/ml (10.0-20.0) L 11/29/17 10:57 Alcohol, Quantitative < 10 mg/dL (0-10) 11/29/17 10:57 Hepatitis A IgM Ab Negative (NEGATIVE) 12/05/17 06:30 Hep Bs Antigen Negative (NEGATIVE) 12/05/17 06:30 Hep B Core IgM Ab Negative (NEGATIVE) 12/05/17 06:30 Hepatitis C Antibody Negative (NEGATIVE) 12/05/17 06:30 HIV 1&2 Ag/Ab, 4th Gen Nonreactive (Nonreactive) 11/30/17 05:30 Influenza Typ A,B (EIA) Pos for influenza a (NEGATIVE) H 12/06/17 12:15 - Hospital Course Hospital Course: Pt is a 57 year old male with an unknown PMH who was brought in by ambulance after being found with an AMS and covered in feces in his apartment. According to EMS, patients brother called ambulance and reports that patient lives with his brother who had not seen him for a week. He became concerned and walked in to find patient covered in feces and confused. Attempts to reach brother were unsuccessful as the contact number in the chart was no longer in service. Pt was in the care of [facility] for a very extensive length of time. Pt was found to have a PMH of colorectal cancer, and refused colonoscopy. Due to the length of the pt stay, a review of the electonic medical record would be more appropriate for a more detailed history. Pt was transferred to [facility] for long-term care. - Date & Time of H&P Date of H&P: 07/26/18 Time of H&P: 17:52 Discharge Exam - Head Exam Head Exam: ATRAUMATIC, NORMOCEPHALIC - ENT Exam ENT Exam: Mucous Membranes Moist - Respiratory Exam Respiratory Exam: NORMAL BREATHING PATTERN. absent: Respiratory Distress - Cardiovascular Exam Cardiovascular Exam: REGULAR RHYTHM, +S1, +S2 - GI/Abdominal Exam GI & Abdominal Exam: Normal Bowel Sounds Discharge Plan - Discharge Medications Prescriptions: Ferrous Sulfate 325 mg PO DAILY #30 tablet Insulin Lispro-LOW [humALOG LOW] See Protocol SC ACHS #30 ml metFORMIN [glucOPHAGE] 500 mg PO BID #60 tab Pantoprazole Sodium [Protonix] 20 mg PO DAILY #30 ect - Follow Up Plan Condition: FAIR Disposition: Still A Patient Instructions: Altered Mental Status (DC), Hypertension (DC), Hypertension (GEN) Additional Instructions: 1. please follow up with your primary care physician 2. please take your medications as prescribed 3. please return to the nearest emergency department if your symptoms return or worsen
[2018-07-26 18:21] VITALS: BP 119/80; PULSE 90; TEMP 98.1; O2SAT 96
== END 2018-07-26 20:41 | DRG 584 ==
LOC: ED 09:36 → ERH 12:21 → 2RSO 14:47 → 3RNO 12-02 10:39
PROVIDERS: ADMIT Internal Medicine; ATTEND Internal Medicine
PROC: 5A09357 Assistance with Respiratory Ventilation, Less than 24 Consecutive Hours, Continuous Positive Airway Pressure (ICD-10-PCS; principal; 2017-12-07)
PROC: 0HBRXZZ Excision of Toe Nail, External Approach (ICD-10-PCS; 2018-01-17)
PROC: 0HBRXZZ Excision of Toe Nail, External Approach (ICD-10-PCS; 2018-01-17)
PROC: 0HBRXZZ Excision of Toe Nail, External Approach (ICD-10-PCS; 2018-01-17)
PROC: 0HBRXZZ Excision of Toe Nail, External Approach (ICD-10-PCS; 2018-01-17)
PROC: 0HBRXZZ Excision of Toe Nail, External Approach (ICD-10-PCS; 2018-01-17)
PROC: 0HBRXZZ Excision of Toe Nail, External Approach (ICD-10-PCS; 2018-01-17)
PROC: 0HBRXZZ Excision of Toe Nail, External Approach (ICD-10-PCS; 2018-01-17)
PROC: 0HBRXZZ Excision of Toe Nail, External Approach (ICD-10-PCS; 2018-01-17)
PROC: 0HBRXZZ Excision of Toe Nail, External Approach (ICD-10-PCS; 2018-01-17)
PROC: 0HBRXZZ Excision of Toe Nail, External Approach (ICD-10-PCS; 2018-01-17)
PROC: 0HBRXZZ Excision of Toe Nail, External Approach (ICD-10-PCS; 2018-05-03)
PROC: 0HBRXZZ Excision of Toe Nail, External Approach (ICD-10-PCS; 2018-05-03)
PROC: 0HBRXZZ Excision of Toe Nail, External Approach (ICD-10-PCS; 2018-05-03)
PROC: 0HBRXZZ Excision of Toe Nail, External Approach (ICD-10-PCS; 2018-05-03)
PROC: 0HBRXZZ Excision of Toe Nail, External Approach (ICD-10-PCS; 2018-05-03)
PROC: 0HBRXZZ Excision of Toe Nail, External Approach (ICD-10-PCS; 2018-05-03)
PROC: 0HBRXZZ Excision of Toe Nail, External Approach (ICD-10-PCS; 2018-05-03)
PROC: 0HBRXZZ Excision of Toe Nail, External Approach (ICD-10-PCS; 2018-05-03)
PROC: 0HBRXZZ Excision of Toe Nail, External Approach (ICD-10-PCS; 2018-05-03)
PROC: 0HBRXZZ Excision of Toe Nail, External Approach (ICD-10-PCS; 2018-05-03)
PROC: 0HDMXZZ Extraction of Right Foot Skin, External Approach (ICD-10-PCS; 2018-05-07)
DX: A40.8 Other streptococcal sepsis (principal); I63.9 Cerebral infarction, unspecified; G92 Toxic encephalopathy; J10.00 Influenza due to other identified influenza virus with unspecified type of pneumonia; L89.152 Pressure ulcer of sacral region, stage 2; L89.101 Pressure ulcer of unspecified part of back, stage 1; L89.201 Pressure ulcer of unspecified hip, stage 1; L03.317 Cellulitis of buttock; L03.115 Cellulitis of right lower limb; R64 Cachexia; G91.9 Hydrocephalus, unspecified; E11.51 Type 2 diabetes mellitus with diabetic peripheral angiopathy without gangrene; L03.312 Cellulitis of back [any part except buttock and flank]; E87.6 Hypokalemia; R09.02 Hypoxemia; K92.1 Melena; B37.89 Other sites of candidiasis; F10.27 Alcohol dependence with alcohol-induced persisting dementia; C19 Malignant neoplasm of rectosigmoid junction; C78.7 Secondary malignant neoplasm of liver and intrahepatic bile duct; E11.621 Type 2 diabetes mellitus with foot ulcer; E11.622 Type 2 diabetes mellitus with other skin ulcer; L97.319 Non-pressure chronic ulcer of right ankle with unspecified severity; L97.529 Non-pressure chronic ulcer of other part of left foot with unspecified severity; A41.1 Sepsis due to other specified staphylococcus; E11.65 Type 2 diabetes mellitus with hyperglycemia; I10 Essential (primary) hypertension; K80.20 Calculus of gallbladder without cholecystitis without obstruction; F05 Delirium due to known physiological condition; B35.1 Tinea unguium; F39 Unspecified mood [affective] disorder; F32.9 Major depressive disorder, single episode, unspecified; R16.0 Hepatomegaly, not elsewhere classified; D50.9 Iron deficiency anemia, unspecified; B37.9 Candidiasis, unspecified; S90.512A Abrasion, left ankle, initial encounter; K76.0 Fatty (change of) liver, not elsewhere classified; K31.819 Angiodysplasia of stomach and duodenum without bleeding; R29.702 NIHSS score 2; Y95 Nosocomial condition; Y90.0 Blood alcohol level of less than 20 mg/100 ml; K59.00 Constipation, unspecified; F06.1 Catatonic disorder due to known physiological condition; L60.2 Onychogryphosis; K63.9 Disease of intestine, unspecified; Z68.25 Body mass index [BMI] 25.0-25.9, adult; Z53.20 Procedure and treatment not carried out because of patient's decision for unspecified reasons; Z79.4 Long term (current) use of insulin; Z75.3 Unavailability and inaccessibility of health-care facilities; Z75.1 Person awaiting admission to adequate facility elsewhere; Z74.01 Bed confinement status